=== PATIENT | female | born 1955 | race African-American/Black ===

== ENCOUNTER 2016-09-17 21:39 | Emergency (ER) | payer MEDICARE, OTHER ==
[~2016-09-17] VITALS: Ht 162.6 cm; Wt 102.5 kg
[~2016-09-17 21:39] MED LIST: AMLO10TA4 PO; CLON0.2T PO; GABA-586 PO; GLIM1TAB2; INSU100V31 SQ; INSU100V8 SQ; LISI-334 PO; METO-269 PO; OXYC-328 PO
[2016-09-17 21:58] VITALS: BP 189/82
[2016-09-17] MEDS ORDERED: HYDR-2758 PO (22:40)
--- NOTE | 2016-09-17 22:40 | PHYS DOC ---
Past Medical History Past Medical History: Diabetes-Type II, Hypertension Additional Past Medical Histor: neropathy Past Surgical History: Cholecystectomy, Hysterectomy, Knee Replacement, Other Additional Past Surgical Histo: hernia repair, breast reduction, heart Alcohol Use: None Drug Use: None Adult General Chief Complaint Chief Complaint: LOWER EXT PAIN HPI HPI 61-year-old female presenting to the emergency department with bilateral neuropathic pain that she has had intermittently for years that is worse tonight. She took Tylenol with minimal relief home at 5 PM. The pain is sharp shooting radiating from her toes to her foot. It is worse at night. Review of systems negative for fevers chills nausea vomiting or rashes. All other review of systems is negative unless otherwise noted in history of present illness. ED course: 61-year-old female presenting with neuropathic pain. She reported not having a good experience taking gabapentin previously so I prescribed her hydrocodone to follow-up with her doctor on Friday which she hasn't appointment with already. Afebrile. The patient was then discharged home in stable condition to follow up with their primary care physician over the next 2-3 days. They were to return if their symptoms worsened or if they were concerned for any reason. [id number] discharge instructions and return precautions were given. Patient's questions were answered to their satisfaction. Patient is comfortable plan. Review of Systems Review of Systems SEE ABOVE. Allergies Allergies Allergies Coded Allergies Type Severity Reaction Last Updated Verified No Known Drug Allergies 08/01/13 No Physical Exam Physical Exam Constitutional: Well developed, well nourished, no acute distress, non-toxic appearance. [] HENT: Normocephalic, atraumatic, bilateral external ears normal, oropharynx moist, no oral exudates, nose normal. [] Eyes: PERRLA, EOMI, conjunctiva normal, no discharge. [] Neck: Normal range of motion, no tenderness, supple, no stridor. [] Cardiovascular:Heart rate regular rhythm, no murmur [] Lungs & Thorax: Bilateral breath sounds clear to auscultation [] Abdomen: Bowel sounds normal, soft, no tenderness, no masses, no pulsatile masses. [] Skin: Warm, dry, no erythema, no rash. [] Back: No tenderness, no CVA tenderness. [] Extremities: No tenderness, no cyanosis, no clubbing, ROM intact, no edema. [] Neurologic: Alert and oriented X 3, normal motor function, normal sensory function, no focal deficits noted. [] Psychologic: Affect normal, judgement normal, mood normal. [] Current Patient Data Vital Signs Vital Signs Date Time Temp Pulse Resp B/P (MAP) Pulse Ox O2 Delivery O2 Flow Rate FiO2 09/17/16 21:58 98.3 98 18 94 Room Air 98.3 EKG EKG [] Radiology/Procedures Radiology/Procedures [] Course & Med Decision Making Course & Med Decision Making Pertinent Labs and Imaging studies reviewed. (See chart for details) [] Dragon Disclaimer Dragon Disclaimer This electronic medical record was generated, in whole or in part, using a voice recognition dictation system. Departure Departure Impression: Primary Impression: Neuropathy Disposition: 01 HOME, SELF-CARE Condition: STABLE Referrals: NO PCP (PCP) JUSTIN KING MD Patient Instructions: Pain, Neuropathic Additional Instructions: Thank you for allowing us to participate in your care today. Followup with your primary care physician in 3 days if your symptoms do not improve. Call your Primary Doctor tomorrow and inform them of your visit today. If you do not have a primary care provider you can ask for a list of our primary care providers. Return to the emergency department you have any new or concerning findings. This should be evaluated by the primary care physician and any necessary consulting services for continued management within a few days after discharge. Return to emergency room if you have any new or concerning symptoms including but not limited to fever, chills, nausea, vomiting, intractable pain, any new rashes, chest pain, shortness of air, uncontrolled bleeding, difficulty breathing, and/or vision loss. You may have been prescribed medication that can change in your level of thinking and ability to operate machinery. These medications include hydrocodone and Ativan. Also, Benadryl has been known to do this as well. Be sure to check with your pharmacist and ask if the medications you've prescribed can affect your level of consciousness. I recommend not operating heavy machinery or driving while on medication such as these. Scripts Hydrocodone Bit/Acetaminophen (HYDROCODONE-APAP 5-325 ) 1 Each Tablet 1 TAB PO PRN Q6HRS Y for PAIN, #15 TAB 0 Refills Be careful as this medication may cause you to be drowsy or tired. Do not drive on this medication. Prov: ALEX WILSON MD 09/17/16 ALEX WILSON MD Sep 17, 2016 22:40
== END 2016-09-17 22:50 | disposition home or self-care (01) ==
LOC: ER 21:39
DX: E11.40 Type 2 diabetes mellitus with diabetic neuropathy, unspecified (principal); I10 Essential (primary) hypertension; Z90.49 Acquired absence of other specified parts of digestive tract; Z90.710 Acquired absence of both cervix and uterus; Z96.669 Presence of unspecified artificial ankle joint
CPT/HCPCS: 99283

== ENCOUNTER 2016-09-28 00:59 | Emergency (ER) | payer OTHER ==
[~2016-09-28] VITALS: Ht 162.6 cm; Wt 99.8 kg
[~2016-09-28 00:59] MED LIST changes: +HYDR-2758 PO
[2016-09-28] MEDS ORDERED: CAPS60CR2 TP (01:43)
--- NOTE | 2016-09-28 01:43 | PHYS DOC ---
Past Medical History Past Medical History: Diabetes-Type II, Hypertension Additional Past Medical Histor: neropathy Past Surgical History: Cholecystectomy, Hysterectomy, Knee Replacement, Other Additional Past Surgical Histo: hernia repair, breast reduction, heart Alcohol Use: None Drug Use: None Adult General Chief Complaint Chief Complaint: LOWER EXT PAIN HPI HPI Patient is a 61 year old female who presents with complaint of bilateral lower extremity pain. Patient states that she has history of diabetic neuropathy. Patient states that she has been trialed on gabapentin and Lyrica therapy but states that she had to discontinue these medications as she had "a bad reaction " to these medications. The patient states that she has been treated with hydrocodone and oxycodone in the past. The patient was last seen in the emergency department on September 17, 2016 and was written for hydrocodone at that visit. The patient states that she follows with Dr. Martines. Patient has seen her primary doctor and she states that she was not given further medication at that visit. She did state that they discussed referral to a paint stock clerk however this has not been set up at this time. Patient states that the pain is burning in quality and extends towards her bilateral calves. Patient rates her pain currently as 9 out of 10. Patient states that the pain is typical for flareups of neuropathic pain. Patient denies any injury to her feet and denies any other complaints at this time. Review of Systems Review of Systems Constitutional: Denies fever or chills [] Eyes: Denies change in visual acuity, redness, or eye pain [] HENT: Denies nasal congestion or sore throat [] Respiratory: Denies cough or shortness of breath [] Cardiovascular: Denies chest pain or edema [] GI: Denies abdominal pain, nausea, vomiting, bloody stools or diarrhea [] : Denies dysuria or hematuria [] Musculoskeletal: Denies back pain or joint pain [] Integument: Denies rash or skin lesions [] Neurologic: Chronic neuropathy, denies headache or new-onset focal weakness [] Current Medications Current Medications Current Medications Medications (Trade) Dose Ordered Sig/Susan Start Time Stop Time Status Last Admin Dose Admin Acetaminophen/ Hydrocodone Bitart (Lortab 10/325) 1 tab 1X ONCE 09/28/16 02:00 09/28/16 02:01 DC 09/28/16 01:57 1 TAB Allergies Allergies Allergies Coded Allergies Type Severity Reaction Last Updated Verified No Known Drug Allergies 5/11/14 No Physical Exam Physical Exam Constitutional: Alert, afebrile, appears in mild discomfort. [] HENT: Normocephalic, atraumatic, bilateral external ears normal, oropharynx moist, no oral exudates, nose normal. [] Eyes: PERRLA, EOMI, conjunctiva normal, no discharge. [] Neck: Normal range of motion, no tenderness, supple, no stridor. [] Cardiovascular:Heart rate regular rhythm, no murmur [] Lungs & Thorax: Bilateral breath sounds clear to auscultation [] Abdomen: Bowel sounds normal, soft, no tenderness, no masses, no pulsatile masses. [] Skin: Warm, dry, no erythema, no rash. [] Back: No tenderness, no CVA tenderness. [] Extremities: No obvious wounds or deformity present in the bilateral lower extremities, hyperesthesia along the plantar aspect of the feet bilaterally extending along the posterior distal third of the lower legs, full range of motion present bilaterally, pulses 2+ distally. [] Neurologic: Alert and oriented X 3, normal motor function, decreased sensation to light touch in the bilateral lower extremities in a stocking pattern. [] Current Patient Data Vital Signs Vital Signs Date Time Temp Pulse Resp B/P (MAP) Pulse Ox O2 Delivery O2 Flow Rate FiO2 09/28/16 01:57 20 09/28/16 01:24 98.5 94 94 Room Air 98.5 EKG EKG Not performed [] Radiology/Procedures Radiology/Procedures Not performed [] Course & Med Decision Making Course & Med Decision Making Pertinent Labs and Imaging studies reviewed. (See chart for details) The patient was treated with oral [place] in the emergency department. I explained to the patient that due to having a controlled substance written previously from the emergency department, further prescriptions would need to be written by her primary doctor. I did provide referral to Dr. Shahram Logan of the pain management clinic for patient to establish follow-up care and be evaluated for chronic pain management. The patient was also written for capsaicin cream for treatment of her neuropathic pain which has not been a modality of treatment used in the past. Advised return emergency department for any worsening symptoms and recommended follow-up with primary doctor in the next 3 days. Patient voiced understanding and in agreement with treatment plan. Dragon Disclaimer Dragon Disclaimer This electronic medical record was generated, in whole or in part, using a voice recognition dictation system. Departure Departure Impression: Primary Impression: Neuropathy Disposition: 01 HOME, SELF-CARE Condition: STABLE Referrals: NO PCP (PCP) Patient Instructions: Diabetic Neuropathy Additional Instructions: Follow-up with your primary doctor in 3 days for reevaluation. Call the office of Dr. Shahram Logan to set up an appointment in the next 1-2 weeks for evaluation for chronic pain management. Return to the emergency department for any worsening symptoms. Scripts Capsaicin (CAPSAICIN) 60 Gm Cream..g. 60 GM TP QID Y for PAIN, #1 TUBE Prov: AIME FREEMAN MD 09/28/16 AIME FREEMAN MD Sep 28, 2016 01:43
[2016-09-28] MEDS ORDERED: HYDROcodone/APAP 10/325 1 TAB TABLET PO ONE (02:00)
== END 2016-09-28 02:02 | disposition home or self-care (01) ==
LOC: ER 00:59
DX: E11.40 Type 2 diabetes mellitus with diabetic neuropathy, unspecified (principal); I10 Essential (primary) hypertension; Z90.710 Acquired absence of both cervix and uterus; Z90.49 Acquired absence of other specified parts of digestive tract; Z96.659 Presence of unspecified artificial knee joint
CPT/HCPCS: 99283

== ENCOUNTER → 2016-10-10 | Outpatient (CLI) | payer OTHER ==
[2016-09-28 01:24] VITALS: BP 183/84
[~2016-10-10] MED LIST changes: +CAPS60CR2 TP
--- NOTE | 2016-10-10 11:56 | RAD ---
MRI Lumbar Spine without contrast History: Low back pain, bilateral leg radiculopathy and spasms Technique: Multiplanar, multi sequential noncontrast MR imaging was performed of the lumbar spine. Contrast: None Comparison: None Findings: Most inferior fully formed intervertebral disc space is considered L5-S1 for this report. Lumbar vertebral body stature is maintained. There is very minimal grade 1 anterior spondylolisthesis at L3-4, L4-5, L5-S1. There is mild degenerative disc disease at L4-5, very mild disc desiccation at L3-4 and L5-S1 and also at T12-L1 and T11-12. There is fairly large hemangioma of the left and posterior L2 vertebral body, small focus of L4. There is no significant marrow edema. Conus terminates at T12-L1. There is 2.8 cm T2 hyperintense lesion of the visualized inferior right kidney, statistically most likely a cyst. T12-L1: There is negligible posterior bulge. There is posterior annular tear. There is minimal buckling of the ligamentum flavum. Neural foramina and spinal canal are adequate. L1-L2: Spinal canal and neural foramina are adequate. This level was not included on the axial images. L2-L3: There is negligible disc osteophyte complex and bulge. There is minimal buckling of the ligamentum flavum. There is very minimal narrowing of the anterior distal right neural foramen by minimal bulge, left neural foramen overall adequate. Spinal canal is adequate. L3-L4: There is mild facet degenerative change on the right. Spinal canal and neural foramina are adequate. L4-L5: There is a moderate to severe facet degenerative change. There is mild partial uncovering of the posterior aspect of the disc due to spondylolisthesis. Spinal canal is adequate. There is mild to moderate narrowing of the more distal right neural foramen, left neural foramen adequate. L5-S1: There is very minimal protrusion eccentric to the far left lateral recess and inferior left neural foramen. Spinal canal and neural foramina are adequate. Impression: 1. There is no significant lumbar spinal stenosis. There is mild to moderate narrowing of the distal right L4-5 neural foramen. There is mild degenerative disc disease greatest at L4-5. There is very mild grade 1 anterior spondylolisthesis L3-4 and L5-S1 at which there is facet degenerative change. 2. T2 hyperintense lesion of the visualized right kidney is most likely a cyst. Electronically signed by: Javier Solomon MD (10/10/2016 11:53 AM) [id number]
== END | disposition home or self-care (01) ==
LOC: MRI 10:29
PROVIDERS: ATTEND Family Medicine
DX: M51.36 Other intervertebral disc degeneration, lumbar region (principal)
CPT/HCPCS: 72148

== ENCOUNTER 2016-10-19 17:26 | Emergency (ER) | payer OTHER ==
[~2016-10-19] VITALS: Ht 167.6 cm; Wt 104.3 kg
[2016-10-19 18:13] LABS: BILIRUBIN,URINE NEGATIVE (NEG); GLUCOSE,URINE 100 mg/dL (NEG); NITRITE,URINE NEGATIVE (NEG); PH,URINE 5.5; PROTEIN,URINE 30 mg/dL (NEG-TRACE)
[2016-10-19 18:19] LABS: BACTERIA,URINE MANY /HPF (0-FEW); RBC,URINE 0 /HPF (0-2); SQUAMOUS EPITHELIAL CELL,UR MANY /LPF
[2016-10-19 18:36] LABS: BASO # 0.1 x10^3/uL (0.0-0.2); BASO % 1 % (0-3); EOS % 0 % (0-3); HEMATOCRIT 44.1 % (36.0-47.0); HEMOGLOBIN 13.9 g/dL (12.0-15.5); LYMPH # 2.2 x10^3/uL (1.0-4.8); LYMPH % 20 % (24-48); MEAN CORPUSCULAR HEMOGLOBIN 26 pg (25-35); MEAN CORPUSCULAR HGB CONC 32 g/dL (31-37); MEAN CORPUSCULAR VOLUME 83 fL (79-100); MONO % 6 % (0-9); NEUT % 74 % (31-73); PLATELET COUNT 440 x10^3/uL (140-400); RED BLOOD COUNT 5.33 x10^6/uL (3.50-5.40); RED CELL DISTRIBUTION WIDTH 16.9 % (11.5-14.5); WHITE BLOOD COUNT 11.2 x10^3/uL (4.0-11.0)
[2016-10-19 18:47] LABS: CALCIUM 10.3 mg/dL (8.5-10.1); CREATININE 0.9 mg/dL (0.6-1.0); GFR 76.8; POTASSIUM 4.1 mmol/L (3.5-5.1)
[2016-10-19 18:53] LABS: ALBUMIN 3.6 g/dL (3.4-5.0); ALBUMIN/GLOBULIN RATIO 0.6 (1.0-1.7); TOTAL BILIRUBIN 0.3 mg/dL (0.2-1.0); TOTAL PROTEIN 9.5 g/dL (6.4-8.2)
--- NOTE | 2016-10-19 18:57 | PHYS DOC ---
Past Medical History Past Medical History: Diabetes-Type II, Hypertension Additional Past Medical Histor: neropathy Past Surgical History: Cholecystectomy, Hysterectomy, Knee Replacement, Other Additional Past Surgical Histo: hernia repair, breast reduction, heart Alcohol Use: None Drug Use: None Adult General Chief Complaint Chief Complaint: ABDOMINAL PAIN HPI HPI 61 yo F presenting to the Ed today with pain in her umbilical hernia. The pain is sharp, nonradiating and without alleviating factors. she has associated n/v. ROS neg for cp, fevers chills, headache, headache. All other review of systems is negative unless otherwise noted in history of present illness. ed course: 61 y/o F presents the ED with pain in her umbilical hernia. vitals show afebrile with tachycardia 2/2 pain. pertinent exam shows a soft easily reducible hernia that is not incarcerated or stangulated. Otherwise the remainder the exam is unremarkable. IV established. Fluids and pain and nausea medications given. CT the abdomen pelvis obtained. on rexamination, the pt was feeling much better and subsequently d/gabby home to f/u with pcp. The patient was then discharged home in stable condition to follow up with their primary care physician over the next 2-3 days. They were to return if their symptoms worsened or if they were concerned for any reason. [id number] discharge instructions and return precautions were given. Patient's questions were answered to their satisfaction. Patient is comfortable plan. Review of Systems Review of Systems SEE ABOVE. Current Medications Current Medications Current Medications Medications (Trade) Dose Ordered Sig/Susan Start Time Stop Time Status Last Admin Dose Admin Hydromorphone HCl (Dilaudid) 0.5 mg PRN Q30MIN PRN 10/19/16 19:30 10/19/16 21:30 DC 10/19/16 19:27 0.5 MG Info (Do NOT chart on this entry -- for MONITORING) 1 each PRN DAILY PRN 10/19/16 19:30 10/19/16 21:30 DC Iohexol (Omnipaque 240 Mg/ml) 50 ml 1X ONCE 10/19/16 19:30 10/19/16 19:31 DC 10/19/16 19:30 50 ML Iohexol (Omnipaque 300 Mg/ml) 75 ml 1X ONCE 10/19/16 19:30 10/19/16 19:31 DC 10/19/16 19:30 75 ML Labetalol HCl (Normodyne) 20 mg 1X ONCE 10/19/16 19:30 10/19/16 19:31 DC 10/19/16 19:26 20 MG Ondansetron HCl (Zofran) 4 mg 1X ONCE 10/19/16 19:30 10/19/16 19:31 DC 10/19/16 19:27 4 MG Allergies Allergies Allergies Coded Allergies Type Severity Reaction Last Updated Verified No Known Drug Allergies 08/01/13 No Physical Exam Physical Exam SEE ABOVE Constitutional: Well developed, well nourished, no acute distress, non-toxic appearance. [] HENT: Normocephalic, atraumatic, bilateral external ears normal, oropharynx moist, no oral exudates, nose normal. [] Eyes: PERRLA, EOMI, conjunctiva normal, no discharge. [] Neck: Normal range of motion, no tenderness, supple, no stridor. [] Cardiovascular:Heart rate regular rhythm, no murmur [] Lungs & Thorax: Bilateral breath sounds clear to auscultation [] Abdomen: See above. Otherwise soft and nontender. Negative McBurney's point. negative March sign. Skin: Warm, dry, no erythema, no rash. [] Back: No tenderness, no CVA tenderness. [] Extremities: No tenderness, no cyanosis, no clubbing, ROM intact, no edema. [] Neurologic: Alert and oriented X 3, normal motor function, normal sensory function, no focal deficits noted. [] Psychologic: Affect normal, judgement normal, mood normal. [] Current Patient Data Vital Signs Vital Signs Date Time Temp Pulse Resp B/P (MAP) Pulse Ox O2 Delivery O2 Flow Rate FiO2 10/19/16 20:46 86 20 163/77 (105) 93 Room Air 10/19/16 17:57 98.3 98.3 Lab Values Laboratory Tests Test 10/19/16 17:57 10/19/16 18:05 Urine Collection Type Unknown Urine Color Yellow Urine Clarity Clear Urine pH 5.5 Urine Specific [place] 1.025 Urine Protein 30 mg/dL (NEG-TRACE) Urine Glucose (UA) 100 mg/dL (NEG) Urine Ketones (Stick) Negative mg/dL (NEG) Urine Blood Negative (NEG) Urine Nitrite Negative (NEG) Urine Bilirubin Negative (NEG) Urine Urobilinogen Dipstick 1.0 mg/dL (0.2 mg/dL) Urine Leukocyte Esterase Small (NEG) Urine RBC 0 /HPF (0-2) Urine WBC 5-10 /HPF (0-4) Urine Squamous Epithelial Cells Many /LPF Urine Bacteria Many /HPF (0-FEW) Urine Mucus Mod /LPF White Blood Count 11.2 x10^3/uL (4.0-11.0) H Red Blood Count 5.33 x10^6/uL (3.50-5.40) Hemoglobin 13.9 g/dL (12.0-15.5) Hematocrit 44.1 % (36.0-47.0) Mean Corpuscular Volume 83 fL (79-100) Mean Corpuscular Hemoglobin 26 pg (25-35) Mean Corpuscular Hemoglobin Concent 32 g/dL (31-37) Red Cell Distribution Width 16.9 % (11.5-14.5) H Platelet Count 440 x10^3/uL (140-400) H Neutrophils (%) (Auto) 74 % (31-73) H Lymphocytes (%) (Auto) 20 % (24-48) L Monocytes (%) (Auto) 6 % (0-9) Eosinophils (%) (Auto) 0 % (0-3) Basophils (%) (Auto) 1 % (0-3) Neutrophils # (Auto) 8.2 x10^3uL (1.8-7.7) H Lymphocytes # (Auto) 2.2 x10^3/uL (1.0-4.8) Monocytes # (Auto) 0.6 x10^3/uL (0.0-1.1) Eosinophils # (Auto) 0.0 x10^3/uL (0.0-0.7) Basophils # (Auto) 0.1 x10^3/uL (0.0-0.2) Sodium Level 135 mmol/L (136-145) L Potassium Level 4.1 mmol/L (3.5-5.1) Chloride Level 96 mmol/L (98-107) L Carbon Dioxide Level 28 mmol/L (21-32) Anion Gap 11 (6-14) Blood Urea Nitrogen 15 mg/dL (7-20) Creatinine 0.9 mg/dL (0.6-1.0) Estimated GFR (Cockcroft-Gault) 76.8 BUN/Creatinine Ratio 17 (6-20) Glucose Level 212 mg/dL (70-99) H Calcium Level 10.3 mg/dL (8.5-10.1) H Total Bilirubin 0.3 mg/dL (0.2-1.0) Aspartate Amino Transferase (AST) 18 U/L (15-37) Alanine Aminotransferase (ALT) 20 U/L (14-59) Alkaline Phosphatase 134 U/L (46-116) H Troponin I Quantitative < 0.017 ng/mL (0.000-0.055) Total Protein 9.5 g/dL (6.4-8.2) H Albumin 3.6 g/dL (3.4-5.0) Albumin/Globulin Ratio 0.6 (1.0-1.7) L Lipase 98 U/L (73-393) Laboratory Tests 10/19/16 18:05 Laboratory Tests 10/19/16 18:05 EKG EKG [] Radiology/Procedures Radiology/Procedures [] Course & Med Decision Making Course & Med Decision Making Pertinent Labs and Imaging studies reviewed. (See chart for details) [] Dragon Disclaimer Dragon Disclaimer This electronic medical record was generated, in whole or in part, using a voice recognition dictation system. Departure Departure Impression: Primary Impression: Abdominal pain Disposition: 01 HOME, SELF-CARE Condition: STABLE Referrals: INDERJIT KOCH MD (PCP) Patient Instructions: Abdominal Pain, Hernia Additional Instructions: Thank you for allowing us to participate in your care today. Followup with your primary care physician in 3 days if your symptoms do not improve. Call your Primary Doctor tomorrow and inform them of your visit today. If you do not have a primary care provider you can ask for a list of our primary care providers. Return to the emergency department you have any new or concerning findings. This should be evaluated by the primary care physician and any necessary consulting services for continued management within a few days after discharge. Return to emergency room if you have any new or concerning symptoms including but not limited to fever, chills, nausea, vomiting, intractable pain, any new rashes, chest pain, shortness of air, uncontrolled bleeding, difficulty breathing, and/or vision loss. You may have been prescribed medication that can change in your level of thinking and ability to operate machinery. These medications include hydrocodone and Ativan. Also, Benadryl has been known to do this as well. Be sure to check with your pharmacist and ask if the medications you've prescribed can affect your level of consciousness. I recommend not operating heavy machinery or driving while on medication such as these. Scripts Ondansetron (ZOFRAN ODT) 4 Mg Tab.rapdis 1 TAB SL PRN Q8HRS Y for NAUSEA, #6 TAB Prov: ALEX WILSON MD 10/19/16 Hydrocodone Bit/Acetaminophen (HYDROCODONE-APAP 5-325 ) 1 Each Tablet 1 TAB PO PRN Q6HRS Y for PAIN, #15 TAB 0 Refills Be careful as this medication may cause you to be drowsy or tired. Do not drive on this medication. Prov: ALEX WILSON MD 10/19/16 ALEX WILSON MD Oct 19, 2016 18:57
[2016-10-19] MEDS ORDERED: IOHEXOL 240 MG/ML 50ML VIAL. IV ONE (19:30)
[2016-10-19] MEDS ORDERED: CONTRAST GIVEN MC PRN (19:30)
[2016-10-19] MEDS ORDERED: ONDANSETRON PF 4 MG/2 ML VIAL. IV ONE (19:30)
[2016-10-19] MEDS ORDERED: HYDROmorphone 2 MG/ML VIAL IV PRN (19:30)
[2016-10-19] MEDS ORDERED: IOHEXOL 300 MG/ML 75 ML VIAL IV ONE (19:30)
[2016-10-19] MEDS ORDERED: LABETALOL 20 MG/4 ML DISP.SYRIN. IVP ONE (19:30)
[2016-10-19 20:46] VITALS: BP 163/77
--- NOTE | 2016-10-19 21:05 | RAD ---
CT study of the abdomen and pelvis with contrast HISTORY: Abdominal pain for 3 days. Hernia pain. History of cholecystectomy and hysterectomy and appendectomy and hernia surgery repair. COMPARISON: September 16, 2012. TECHNIQUE: After IV infusion of 75 cc of Omnipaque 300, helical CT scanning of the abdomen and pelvis was performed. GI contrast was administered per mouth. PQRS compliance Statement One or more of the following individualized dose reduction techniques were utilized for this study: 1. Automated exposure control 2. Adjustment of the mA and/or kV according to patient size 3. Use of iterative reconstruction technique FINDINGS: The liver and spleen and pancreas are normal. The gallbladder is surgically absent. No extrahepatic biliary ductal dilatation is seen. No adrenal mass is evident. There is a 1.4 cm hypodense nodule of the anterior upper pole of the right kidney. This has increased in size and does not demonstrate Hounsfield unit measurements typical of a simple cyst. There is a stable simple cyst of lower pole of the right kidney. No hydronephrosis is seen on either side. The urinary bladder wall is smooth. No focal aneurysmal dilatation of the abdominal aorta is seen. No enlarged abdominal or pelvic lymphadenopathy is evident. Nothe terminal ileum is unremarkable. Prominent midline abdominal wall protrusion is seen. Within the inferior aspect of this protrusion near the midline, a small hernia is seen containing a loop of small bowel but no bowel wall thickening is evident here. This has a similar appearance as the previous study. There is no obstructive bowel pattern. There is soft tissue edema of the subcutaneous fat of the anterior abdominal wall on the left side. This could represent cellulitis. No soft tissue abscess is seen here. No mesenteric inflammatory change or free fluid or free air is seen. No lung base consolidation is evident. No osteolytic process is seen. IMPRESSION: Large anterior abdominal wall protrusion. Within the inferior aspect of this protrusion, a small hernia is seen containing a loop of small bowel and this is unchanged from the previous study. There is no bowel wall thickening or inflammatory change here and there is no bowel obstruction present here. Overall, this is unchanged from the previous study. No small bowel obstruction or free air or free fluid is seen. Subcutaneous soft tissue edema of the left anterior abdominal wall. This may be seen with cellulitis. No anterior abdominal wall abscess is seen. Mild cardiomegaly. There is a filling defect within the left ventricular apex measuring 20 mm in size. Left ventricular thrombus is a possibility. No pericardial effusion is seen. 1.4 cm indeterminate hypodense nodule of the upper pole of the right kidney. This has increased in size. Therefore, recommend outpatient renal sonography for further evaluation. Electronically signed by: Dayron Salas MD (10/19/2016 9:02 PM) [facility]
[2016-10-19] MEDS ORDERED: ONDA4TAB10 SL (21:17)
[2016-10-19] MEDS ORDERED: HYDR-2758 PO (21:17)
--- NOTE | 2016-10-20 09:19 | EKG ---
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
== END 2016-10-19 21:20 | disposition home or self-care (01) ==
LOC: ER 17:26
DX: R10.33 Periumbilical pain (principal); R11.2 Nausea with vomiting, unspecified; E11.40 Type 2 diabetes mellitus with diabetic neuropathy, unspecified; I10 Essential (primary) hypertension; Z90.710 Acquired absence of both cervix and uterus; Z90.49 Acquired absence of other specified parts of digestive tract; Z98.890 Other specified postprocedural states; Z96.659 Presence of unspecified artificial knee joint
CPT/HCPCS: 36415; 74177; 80053; 81001; 83690; 84484; 85027; 93005; 96374; 96375; 99285; J1170; J2405; J3490; Q9966; Q9967

== ENCOUNTER → 2016-10-28 | Outpatient (CLI) | payer OTHER ==
[2016-10-19 20:46] VITALS: BP 163/77
[~2016-10-28] MED LIST changes: +ASPI-482 PO; +ATOR20TA58 PO; +CLOP75TA PO; +FAMO20TA5 PO; +FURO80TA72 PO; +INSU100I17 SQ; +INSU100I27 SQ; +METO25TA4 PO; +ONDA4TAB10 SL; +POTASSIUM CHLO10 MEQ PO
--- NOTE | 2016-10-28 23:50 | PAIN ---
DATE OF SERVICE: 10/28/2016 INITIAL CONSULTATION CHIEF COMPLAINT: Low back, bilateral lower extremity pain, essentially left equal to right. HISTORY OF PRESENT ILLNESS: This is a 61-year-old female who presents with history of pain for about 10+ years. 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 She recently relocated from [place] to [place], [place]. She had some family there, but has moved back. The patient reports that she is having increased pain in her low back, bilateral lower extremities after the move and it is a constant, sharp, stabbing, throbbing with numbness, radiating pain mostly in the posterior thighs and a little in the left knee. The patient reports it wakes her from sleep 2-3 times at night, does not affect her bowel or bladder control, but does affect her ability to walk. She is using a walker at all times. The patient is also wearing nasal cannula oxygen today. The patient is in the process of establishing new primary care physician as well as Cardiology and auxiliary engineer and he has been referred, but she has not seen these physicians yet. The patient reports that she has tried physical therapy in the past multiple times over the years, which sometimes helps, sometimes not, has had no other treatment modalities at this time. She did have some epidural injections many years ago, which she remembers that they helped. She has also been taking Percocet 10 mg, which she reports does help by about 50% as well. The patient reports no loss of motor function in the lower extremities, but they do fatigue very easily even was using her walker. PAST MEDICAL HISTORY: Significant for type 2 diabetes, hypertension, sleep apnea, obesity, home oxygen use and coronary artery disease, peripheral neuropathy, arthritis. PREVIOUS SURGERY: Include coronary artery bypass in 2014, cholecystectomy and hernia repair in 2005, hysterectomy in the past, left knee replacement in 2006 and breast reduction in the past as well. CURRENT MEDICATIONS: Include lisinopril, metoprolol, Percocet, insulin, atorvastatin, daily baby aspirin, potassium chloride, Plavix, Lasix, and famotidine. ALLERGIES: THE PATIENT IS ALLERGIC TO MOTRIN. FAMILY HISTORY: Significant for heart disease, high blood pressure, diabetes. SOCIAL HISTORY: The patient does not drink alcohol, does not use tobacco products. Reports she is currently single. Lives locally with her granddaughter and is currently retired. REVIEW OF SYSTEMS: The patient's review of systems is positive for those items mentioned in history of present illness. All systems reviewed and otherwise negative. It is complete, full and well documented on the patient's chart. PHYSICAL EXAMINATION: VITAL SIGNS: The patient's blood pressure is 174/92, pulse 102, respirations 20, temperature 98.2 degrees Fahrenheit, height is 5 feet 4 inches, weight is 253 pounds. GENERAL: The patient is awake, alert, oriented, appropriate, very pleasant demeanor. HEENT: Head shows normocephalic, atraumatic. Extraocular movements are intact, symmetrical. Oral cavity, mucous membranes are moist and pink. Dentition is intact. NECK: Shows anterior throat supple without palpable lymphadenopathy noted. Swallow reflex is symmetrical. CHEST: Shows normal on inspection. Breath sounds are clear to auscultation bilaterally. HEART: Shows S1 and S2 clear. No murmurs auscultated. ABDOMEN: Obese, soft, nontender, nondistended. No palpable organomegaly is noted. No rebound or guarding demonstrated. BACK: Shows spine grossly midline. Slight exaggeration of thoracic kyphosis, mild flattening of lumbar lordotic curvature. No previous bruises, lesions, rashes or scars are noted. Lumbar paraspinous muscles show symmetrical on inspection. With palpation shows some moderate tenderness throughout the upper, middle and lower distribution diffusely bilaterally without radiation. The patient shows good rotation and motion of lumbar spine, both laterally greater than 10 degrees right and left as well as extension greater than 10 degrees, forward flexion 45 degrees without significant pain reported. No tenderness over the spinous processes, the sacrum or sacroiliac regions with palpation. Lower extremities show deep tendon reflexes 1+ in the patellar and tendocalcaneus tendons, are equal. Motor exam is 4/5 and equal with dorsiflexion, extension, quadriceps and hamstring flexion, but symmetrical. Peripheral pulses are 1+ posterior tibial and dorsalis pedis pulses. No peripheral edema is noted. No clubbing or cyanosis. Straight leg raise noted to be positive on bilateral lower extremity at about 30-35 degrees with pain reported in the posterior gluteus, posterior thighs, which is decreased, but not completely relieved with knee flexion. Gaenslen's and Ronny's maneuvers are grossly negative bilaterally, some mild tenderness on the right with external hip rotation, but without radiation or pain in the right groin. The patient is able to stand, but very slow to get from a sitting to standing position. She is walking with a bit of a shuffling gait, does not appear to favor the right or left lower extremity significantly. She is using a walker to ambulate. Again, also has nasal cannula oxygen, which she is pulling behind her with the walker. IMPRESSION: 1. This is a 61-year-old female with a long history of low back, bilateral lower extremity pain in a radicular fashion. 2. MRI scan of the lumbar spine dated 10/10/2016 showing no significant stenoses, but mild to moderate narrowing of the distal right L4-L5 neural foramen and mild degenerative disk disease, greatest at L4-L5 with very mild grade 1 anterior spondylolisthesis at L3-L4 and L5-S1 with facet degenerative change as well. 3. Radicular pain in the L4 and L5-S1 dermatomes bilaterally in lower extremities. 4. Diabetes, non-insulin dependent. 5. Hypertension. 6. Arthritis. 7. Obesity. PLAN: Options were discussed with the patient including conservative medical management, continued physical therapy. We will refer the patient for water therapy. She reports she ___ well with this in the past. Also, we will check with her bolt man who was soon to be established regarding holding the Plavix for preparation of the lumbar epidural steroid injection and she would like to proceed with a lumbar epidural steroid injection if possible and again we will wait for clearance from holding her Plavix and preauthorization from her insurance provider. The patient will return to clinic in approximately 1 week or approximately 2 weeks. We will plan on procedure as approved. I also recommended discussing blood pressure regulation with her primary care physician again and that she will receive any oral narcotics from her primary care provider if necessary in the future. CARMEN CHAHAL MD DR: NANCY/amrik JOB#: [id number] / [id number] INDERJIT Gonzalez MD
== END | disposition home or self-care (01) ==
LOC: PNCL 10:36
PROVIDERS: ATTEND Anesthesiology
DX: M51.37 Other intervertebral disc degeneration, lumbosacral region (principal); I10 Essential (primary) hypertension; E11.9 Type 2 diabetes mellitus without complications
CPT/HCPCS: G0463

== ENCOUNTER 2016-11-19 13:34 | Observation (INO) | payer OTHER ==
[~2016-11-19] VITALS: Ht 162.6 cm; Wt 109.8 kg
[~2016-11-19 13:34] MED LIST changes: +FERR-26 PO; +NITR0.4T22 SL
[2016-11-19 14:07] LABS: BASO # 0.1 x10^3/uL (0.0-0.2); BASO % 1 % (0-3); EOS % 0 % (0-3); HEMATOCRIT 39.9 % (36.0-47.0); HEMOGLOBIN 12.8 g/dL (12.0-15.5); LYMPH # 1.3 x10^3/uL (1.0-4.8); LYMPH % 14 % (24-48); MEAN CORPUSCULAR HEMOGLOBIN 27 pg (25-35); MEAN CORPUSCULAR HGB CONC 32 g/dL (31-37); MEAN CORPUSCULAR VOLUME 84 fL (79-100); MONO % 5 % (0-9); NEUT % 80 % (31-73); PLATELET COUNT 383 x10^3/uL (140-400); RED BLOOD COUNT 4.74 x10^6/uL (3.50-5.40); RED CELL DISTRIBUTION WIDTH 17.6 % (11.5-14.5); WHITE BLOOD COUNT 9.7 x10^3/uL (4.0-11.0)
[2016-11-19] MEDS ORDERED: CONTRAST GIVEN MC PRN (14:15)
[2016-11-19] MEDS ORDERED: IOHEXOL 300 MG/ML 75 ML VIAL IV ONE (14:15)
[2016-11-19 14:17] LABS: CALCIUM 10.1 mg/dL (8.5-10.1); CREATININE 0.7 mg/dL (0.6-1.0); GFR 102.6; POTASSIUM 4.1 mmol/L (3.5-5.1)
[2016-11-19 14:22] LABS: ALBUMIN 3.6 g/dL (3.4-5.0); ALBUMIN/GLOBULIN RATIO 0.8 (1.0-1.7); TOTAL BILIRUBIN 0.5 mg/dL (0.2-1.0); TOTAL PROTEIN 8.2 g/dL (6.4-8.2)
[2016-11-19] MEDS ORDERED: MORPHINE SULFATE 4 MG/ML DISP.SYRIN. IM ONE (14:45)
--- NOTE | 2016-11-19 14:54 | RAD ---
CTA of the chest with contrast (pulmonary embolism protocol) 11/19/2016 Clinical History: Chest pain. Technique: After the intravenous administration of 75 mL of Omnipaque 300, contiguous, 0.625 mm axial sections were obtained through the chest. 2 mm reconstructed axial and 3-D MIP coronal and sagittal reconstructed images were obtained. One or more of the following individualized dose reduction techniques were utilized for this study: 1. Automated exposure control. 2. Adjustment of the mA and/or kV according to patient size. 3. Use of iterative reconstruction technique. Findings: Comparison study is dated 11/01/2016. No filling defects are seen within the major branches of either pulmonary artery. There is no CT evidence of pulmonary embolism. Surgical changes are seen consistent with a CABG procedure. Atherosclerotic calcification of the thoracic aorta is seen. The thoracic aorta is tortuous but tapers normally.. Extensive coronary artery calcifications are seen. The heart is mildly enlarged. Linear bands of subsegmental atelectasis are seen involving both lower lobes. No area of consolidation is seen. No pneumothorax or pleural effusion is noted. Impression: There is no CT evidence of pulmonary embolism.
--- NOTE | 2016-11-19 15:02 | EKG ---
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
[2016-11-19] MEDS ORDERED: ONDANSETRON PF 4 MG/2 ML VIAL. IV ONE (15:15)
[2016-11-19] MEDS ORDERED: MORPHINE SULFATE 4 MG/ML DISP.SYRIN. IV ONE (15:30)
--- NOTE | 2016-11-19 16:13 | PHYS DOC ---
Past Medical History Past Medical History: Diabetes-Type II, Hypertension, PR Additional Past Medical Histor: neuropathy Past Surgical History: Cholecystectomy, Hysterectomy, Knee Replacement, Other Additional Past Surgical Histo: hernia repair, breast reduction, heart, cardiac cath/stent Alcohol Use: None Drug Use: None Adult General Chief Complaint Chief Complaint: CHEST PAIN HPI HPI Patient is a 61 year old F who presents with chest pain. Patient states she developed some chest heaviness and pain with shortness of breath earlier this afternoon. Patient has a history of bypass surgery had a heart catheter done last week which was unremarkable. Patient denies any fevers. Patient denies any nausea/vomiting/diarrhea. Patient no other symptoms. Patient states this pain was not increased with exertion. Patient has no other complaints. Review of Systems Review of Systems GEN: Denies fevers, chills, sweats HEENT: Denies blurred vision, sore throat CV: Chest pain RESP: Denies shortness of air, cough GI: Denies n/v/d NEURO: Denies confusion, dizziness MSK: Denies weakness, joint pain/swelling Current Medications Current Medications Current Medications Medications (Trade) Dose Ordered Sig/Susan Start Time Stop Time Status Last Admin Dose Admin Info (Do NOT chart on this entry -- for MONITORING) 1 each PRN DAILY PRN 11/19/16 14:15 11/21/16 14:14 Iohexol (Omnipaque 300 Mg/ml) 75 ml 1X ONCE 11/19/16 14:15 11/19/16 14:16 DC 11/19/16 14:29 75 ML Morphine Sulfate 4 mg 1X ONCE 11/19/16 15:30 11/19/16 15:31 DC 11/19/16 15:13 4 MG Ondansetron HCl (Zofran) 4 mg 1X ONCE 11/19/16 15:15 11/19/16 15:16 DC 11/19/16 15:09 4 MG Allergies Allergies Allergies Coded Allergies Type Severity Reaction Last Updated Verified No Known Drug Allergies 08/01/13 No Physical Exam Physical Exam GEN.: No apparent distress. Alert and oriented. HEENT: Head is normocephalic, atraumatic NECK: Supple. LUNGS: CTAB. HEART: tahcy, S1, S2 present. Peripheral pulses intact ABDOMEN: Soft, nontender. Positive bowel sounds. EXTREMITIES: Without any cyanosis. NEUROLOGIC: Normal speech, normal tone PSYCHIATRIC: Normal affect, normal mood. SKIN: No ulcerations Current Patient Data Vital Signs Vital Signs Date Time Temp Pulse Resp B/P (MAP) Pulse Ox O2 Delivery O2 Flow Rate FiO2 11/19/16 13:39 99.0 22 145/59 (87) 94 Room Air 99.0 Lab Values Laboratory Tests Test 11/19/16 13:50 White Blood Count 9.7 x10^3/uL (4.0-11.0) Red Blood Count 4.74 x10^6/uL (3.50-5.40) Hemoglobin 12.8 g/dL (12.0-15.5) Hematocrit 39.9 % (36.0-47.0) Mean Corpuscular Volume 84 fL (79-100) Mean Corpuscular Hemoglobin 27 pg (25-35) Mean Corpuscular Hemoglobin Concent 32 g/dL (31-37) Red Cell Distribution Width 17.6 % (11.5-14.5) H Platelet Count 383 x10^3/uL (140-400) Neutrophils (%) (Auto) 80 % (31-73) H Lymphocytes (%) (Auto) 14 % (24-48) L Monocytes (%) (Auto) 5 % (0-9) Eosinophils (%) (Auto) 0 % (0-3) Basophils (%) (Auto) 1 % (0-3) Neutrophils # (Auto) 7.8 x10^3uL (1.8-7.7) H Lymphocytes # (Auto) 1.3 x10^3/uL (1.0-4.8) Monocytes # (Auto) 0.5 x10^3/uL (0.0-1.1) Eosinophils # (Auto) 0.0 x10^3/uL (0.0-0.7) Basophils # (Auto) 0.1 x10^3/uL (0.0-0.2) Sodium Level 140 mmol/L (136-145) Potassium Level 4.1 mmol/L (3.5-5.1) Chloride Level 98 mmol/L (98-107) Carbon Dioxide Level 35 mmol/L (21-32) H Anion Gap 7 (6-14) Blood Urea Nitrogen 11 mg/dL (7-20) Creatinine 0.7 mg/dL (0.6-1.0) Estimated GFR (Cockcroft-Gault) 102.6 BUN/Creatinine Ratio 16 (6-20) Glucose Level 189 mg/dL (70-99) H Calcium Level 10.1 mg/dL (8.5-10.1) Total Bilirubin 0.5 mg/dL (0.2-1.0) Aspartate Amino Transferase (AST) 12 U/L (15-37) L Alanine Aminotransferase (ALT) 18 U/L (14-59) Alkaline Phosphatase 116 U/L (46-116) Troponin I Quantitative < 0.017 ng/mL (0.000-0.055) Total Protein 8.2 g/dL (6.4-8.2) Albumin 3.6 g/dL (3.4-5.0) Albumin/Globulin Ratio 0.8 (1.0-1.7) L Laboratory Tests 11/19/16 13:50 Laboratory Tests 11/19/16 13:50 EKG EKG 1343: EKG shows sinus tach rate of 104 no STEMI and overall no change from previous EKG done on October 31, 2016] Radiology/Procedures Radiology/Procedures CTA of the chest shows no acute abnormalities no PE [] Course & Med Decision Making Course & Med Decision Making Pertinent Labs and Imaging studies reviewed. (See chart for details) ED course: Patient was seen and examined in the emergency room cardiac workup was ordered along with a CT angios the chest 1515: Patient was updated on CT findings and laboratory results on reexamination still having some mild chest heaviness 1520: Discussed CC/HP/PMH with Dr. Pat and recommends admit to hospitalist with her on consult 1525: Discussed CC/HP/PMH with Dr. Rhodes and recommends admit [] [] Dragon Disclaimer Dragon Disclaimer This electronic medical record was generated, in whole or in part, using a voice recognition dictation system. Departure Departure Impression: Primary Impression: Chest pain Disposition: ADMITTED INPATIENT Admitting Physician: Other (Fitz) Condition: STABLE Referrals: INDERJIT KOCH MD (PCP) CARRI LUNA DO Nov 19, 2016 16:12
[2016-11-19] MEDS ORDERED: ONDANSETRON PF 4 MG/2 ML VIAL. IV PRN (16:15)
[2016-11-19] MEDS ORDERED: NITROGLYCERIN SUBLINGUAL 0.4 MG BOTTLE OF 25. SL PRN ×2 (16:15→20:00)
[2016-11-19] MEDS: MORPHINE SULFATE 4 MG/ML DISP.SYRIN. IV PRN ×3 (16:34→21:55)
[2016-11-19 18:00] VITALS: BP 185/72
[2016-11-19 19:20] VITALS: BP 175/73
[2016-11-19] MEDS ORDERED: oxyCODONE/APAP 10/325 1 TAB TABLET PO PRN (20:00)
[2016-11-19] MEDS ORDERED: DEXTROSE 50% 25 GM / 50ML DISP.SYRIN. IV PRN (20:15)
[2016-11-19] MEDS: INSULIN ASPART 300 UNITS/3 ML INSULN.PEN SQ SCH (20:19)
[2016-11-19] MEDS: METOPROLOL TART IMMED RELEASE 25 MG TABLET. PO SCH (20:28)
[2016-11-19] MEDS: FAMOTIDINE 20 MG TABLET. PO SCH (20:29)
[2016-11-19] MEDS: INSULIN DETEMIR 300 UNITS/3 ML INSULN.PEN. SQ SCH (20:34)
[2016-11-19] MEDS ORDERED: hydrALAZINE 20 MG/ML VIAL. IVP PRN (20:45)
[2016-11-19] MEDS ORDERED: FUROSEMIDE 80 MG TABLET. PO SCH (21:00)
[2016-11-19] MEDS ORDERED: ATORVASTATIN CALCIUM 20 MG TABLET PO SCH (21:00)
[2016-11-19] MEDS ORDERED: INSULIN DETEMIR 300 UNITS/3 ML INSULN.PEN. SQ SCH (21:00)
[2016-11-19] MEDS ORDERED: LOSARTAN POTASSIUM 50 MG TABLET. PO ONE (22:30)
[2016-11-19] MEDS ORDERED: ASA/APAP/CAFFEINE 250/250/65MG TABLET. PO PRN (22:45)
--- NOTE | 2016-11-19 23:10 | CONS ---
DATE OF CONSULTATION: 11/19/2016 HISTORY OF PRESENT ILLNESS: This is a 61-year-old black female who came into the Emergency Room with headache followed by chest pain. She was recently hospitalized with chest pain. She had undergone a cardiac catheterization. It revealed a patent GARCIA to the LAD. There was competitive flow. The mid LAD had previously been totally occluded in 2014, but since then has recanalized. There is also a patent vein graft to the OM branch. It fills the OM branch and several small branches of the circumflex coronary artery. The [place] circumflex coronary artery was totally occluded. The right coronary artery had no significant disease. 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 The rest of the left ventricle contracted normally and the ejection fraction is estimated to be 60%. She had also undergone an echocardiogram, but this was extremely difficult because of her weight. Thus, good views were not obtained. During that hospitalization, her blood pressure was fairly well controlled with a systolic blood pressure 150-160 mmHg. She was also seen in consultation by Dr. Rousseau, the clinical informatics spec. Since going home, I had seen her once in the office; at which time, her blood pressure was acceptable. She did not have any significant chest pain. She has been on beta blockers. She had been on lisinopril, but this was recently changed to losartan. She has diabetes mellitus. During her last hospitalization, the hemoglobin A1c was 7.3. The total cholesterol was 164, LDL cholesterol 105 and HDL cholesterol was 40. The TSH was 3.128. PRESENT MEDICATIONS: Listed as: 1. Aspirin 81 mg a day. 2. Atorvastatin 20 mg a day. 3. Clopidogrel 75 mg a day. 4. Famotidine 20 mg a day. 5. Ferrous sulfate 325 mg a day. 6. Furosemide 80 mg 3 times a day and I am not quite sure why she takes that often. 7. NovoLog 20 units before each meal. 8. Levemir 32 units twice a day. 9. Metoprolol tartrate 25 mg a day. 10. Oxycodone. 11. Potassium chloride 10 mEq twice a day. The patient stated that she also is on losartan, though she did not list that as one of her medications. SOCIAL HISTORY: She does not smoke or take alcohol. PHYSICAL EXAMINATION: VITAL SIGNS: She was somewhat tachycardic with a heart rate of 90 beats per minute. The blood pressure was 202/91. LUNGS: Clear. HEART: The heart sounds are normal with no murmur or gallop. ABDOMEN: Soft. EXTREMITIES: There is no edema of the legs. IMPRESSION: 1. Accelerated hypertension. The patient states that she has never had severe hypertension like this before. We might need to consider renal artery stenosis. 2. Headaches secondary to the hypertension. 3. Chest pain, etiology unclear. It certainly is not due to coronary artery disease. One may need to consider the possibility of the left ventricular possible aneurysm causing it with her present hypertension. 4. History of chronic obstructive pulmonary disease, evaluated by the clinical informatics spec in the last admission. 5. Insulin-dependent diabetes mellitus. 6. Dyslipidemia. LDL not yet at goal with statin. At this time, I would control the blood pressure with increased dose of ARB and adding hydralazine and nitrates that seemed to be effective ____. One would also need to consider at least noninvasive evaluation for renal artery stenosis. Thank you very much for asking me to see her. NYDIA JEREZ MD DR: HUGH/amrik JOB#: [id number] / [id number]
[2016-11-19 23:15] VITALS: BP 150/60
--- NOTE | 2016-11-19 23:23 | HP ---
ADMIT DATE: 11/19/2016 CHIEF COMPLAINT: Chest pain. HISTORY OF PRESENT ILLNESS: The patient is a 61-year-old morbidly obese -[place] woman with past medical history of diabetes, hypertension and CAD who presented to the Emergency Room with substernal chest heaviness accompanied with some mild shortness of breath. She relates that she actually took 2 nitro at home, which did not help the chest pain at all, but caused severe headache, which actually brought her to the Emergency Room. She relates that she has had headaches since waking up this morning as well as some nausea, no vomiting, no diarrhea or abdominal pain. She denies any other symptoms including fevers or chills. She denies any radiation of her chest pain, any dizziness, or lightheadedness. Of note, the patient actually had undergone a cardiac catheterization by Dr. Arias just one week ago, which was deemed to be "clean". PAST MEDICAL HISTORY: Diabetes, hypertension, CAD, status post cath last week, diabetic neuropathy. PAST SURGICAL HISTORY: She is status post cholecystectomy, hysterectomy, and knee replacement. FAMILY HISTORY: Positive for heart disease, diabetes. SOCIAL HISTORY: Lives with her family. No toxic habits. ALLERGIES: No known drug allergies. MEDICATIONS: MAR reconciled with home medications. REVIEW OF SYSTEMS: Positive as per HPI. Rest of organ system review is negative. PHYSICAL EXAMINATION: VITAL SIGNS: From today show a blood pressure of 135/73, heart rate of 98 and respiratory rate at 18. She is afebrile. GENERAL: This is a morbidly obese -[place] woman, alert and oriented, in no acute distress. LUNGS: Clear to auscultation bilaterally. HEART: Regular rate and rhythm. ABDOMEN: Has positive bowel sounds, mild tenderness to palpation. EXTREMITIES: Show no edema, no clubbing, no cyanosis. SKIN: Warm, soft and dry. LABORATORY DATA: CBC from today shows a WBC of 9.7, hemoglobin 12.8, platelets of 383, BUN and creatinine of 11 and 0.7, normal electrolytes, CO2 at 35. LFTs within normal. Glucose at 189; evening fingerstick at 238. Most recent hemoglobin A1c on 11/02/2016 was 7.3. Liver panel obtained on same day was essentially within normal limits. ASSESSMENT AND PLAN: The patient is a 61-year-old morbidly obese woman with CAD, recent clean cath, obstructive sleep apnea, and gastroesophageal reflux disease who presents with substernal chest pain, not responsive to nitro. She is admitted to the cardiac care unit for further management. She will be observed. Serial enzymes will be obtained. Strong suspicion, however, is that this is not cardiac, but rather GI related. She is on H2 blockers b.i.d. Consider switching to PPI. Symptoms now have completely resolved. For her headaches, an order for Excedrin has been given. Will continue her home oxygen. Does not have a CPAP with her here, but apparently compliant at home. She is borderline hypercarbic, which I suspect is due to obesity related hypoventilation. Continue O2 home 3 liters of oxygen as needed here. Anticipate that she will rule out tomorrow. 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 Pat, has been consulted. We will await further evaluation versus discharge to home. ANNABELLE BOWMAN MD DR: UR/nts JOB#: [id number] / [id number] NYDIA Rodriguez MD MTDD
[2016-11-20] MEDS: MORPHINE SULFATE 4 MG/ML DISP.SYRIN. IV PRN ×2 (01:04→06:08)
[2016-11-20 03:30] VITALS: BP 121/63
[2016-11-20] MEDS: oxyCODONE/APAP 10/325 1 TAB TABLET PO PRN ×2 (03:38→10:46)
[2016-11-20 06:49] LABS: BASO % 1 % (0-3); EOS % 1 % (0-3); HEMATOCRIT 37.6 % (36.0-47.0); HEMOGLOBIN 11.8 g/dL (12.0-15.5); LYMPH # 2.2 x10^3/uL (1.0-4.8); LYMPH % 22 % (24-48); MEAN CORPUSCULAR HEMOGLOBIN 27 pg (25-35); MEAN CORPUSCULAR HGB CONC 32 g/dL (31-37); MEAN CORPUSCULAR VOLUME 85 fL (79-100); MONO % 8 % (0-9); NEUT % 69 % (31-73); PLATELET COUNT 371 x10^3/uL (140-400); RED BLOOD COUNT 4.44 x10^6/uL (3.50-5.40); RED CELL DISTRIBUTION WIDTH 17.3 % (11.5-14.5); WHITE BLOOD COUNT 9.7 x10^3/uL (4.0-11.0)
[2016-11-20 07:00] VITALS: BP 116/62
[2016-11-20 07:12] LABS: CALCIUM 9.6 mg/dL (8.5-10.1); CREATININE 1.1 mg/dL (0.6-1.0); GFR 60.9; POTASSIUM 3.8 mmol/L (3.5-5.1)
[2016-11-20] MEDS ORDERED: POTASSIUM CHLORIDE 10 MEQ TABLET.ER. PO SCH (08:00)
[2016-11-20] MEDS ORDERED: LOSARTAN POTASSIUM 50 MG TABLET. PO SCH (09:00)
[2016-11-20] MEDS ORDERED: CLOPIDOGREL BISULFATE 75 MG TABLET PO SCH (09:00)
[2016-11-20] MEDS ORDERED: FERROUS SULFATE 325 MG TABLET. PO SCH (09:00)
[2016-11-20] MEDS: METOPROLOL TART IMMED RELEASE 25 MG TABLET. PO SCH (09:00)
[2016-11-20] MEDS ORDERED: ASPIRIN ENTERIC COATED 81 MG TABLET.DR. PO SCH (09:00)
[2016-11-20] MEDS: FAMOTIDINE 20 MG TABLET. PO SCH (09:16)
[2016-11-20] MEDS: FUROSEMIDE 40 MG TABLET. PO SCH ×2 (09:17→14:00)
[2016-11-20] MEDS: INSULIN DETEMIR 300 UNITS/3 ML INSULN.PEN. SQ SCH (09:22)
[2016-11-20] MEDS: INSULIN ASPART 300 UNITS/3 ML INSULN.PEN SQ SCH ×2 (09:22→12:44)
[2016-11-20 11:00] VITALS: BP 104/55
--- NOTE | 2016-11-20 11:39 | RAD ---
Exam performed: Renal artery Doppler. History: Severe Hypertension, evaluation of renal artery stenosis. Date of service: 11/19/16. Comparison: None available Technique: Real-time grayscale, color-flow, duplex Doppler and spectral analysis of the kidneys is performed and images are obtained. Findings: The right kidney measures 11.5 cm in length and the left kidney measures 12.6 cm in length. There is no hydronephrosis or nephrolithiasis. Doppler interrogation of the renal arteries is performed as follows. The peak systolic velocity in the proximal right renal artery measures 188.0 cm/s whereas on the left measures 118.0 cm/s. Peak systolic velocity in the mid right renal artery measures 203.0 cm/s whereas on the left measures 138.0 cm/s. Peak systolic velocity in the distal right renal artery measures 91.0 cm/s whereas on the left measures 137.0 cm/s. Peak systolic velocity in the aorta measures 160.0 cm/s The renal artery to aortic ratio measures 1.2 whereas on the left measures 0.8. Impression: Normal bilateral kidneys. Mildly elevated peak systolic velocity in the mid right renal artery suspicious for renal artery stenosis. Further evaluation with CT or MR angiogram may be obtained to evaluate exact extent of stenosis
[2016-11-20] MEDS ORDERED: IV NORMAL SALINE 500ML BAG 500 ML IV ONE (13:15)
[2016-11-20] MEDS ORDERED: FURO80TA72 PO (13:18)
[2016-11-20] MEDS ORDERED: oxyCODONE/APAP 10/325 1 TAB TABLET PO PRN (13:30)
[2016-11-20 14:12] LABS: CREATININE 1.2 mg/dL (0.6-1.0); GFR 55.1
[2016-11-20 15:00] VITALS: BP 108/56
--- NOTE | 2016-11-21 22:57 | DS ---
DATE OF DISCHARGE: 11/20/2016 CHIEF COMPLAINT: Chest pain. HOSPITAL COURSE: The patient is a 61-year-old morbidly obese -[place] woman with past medical history of diabetes, hypertension, CAD who presented to the Emergency Room with substernal chest heaviness accompanied by mild shortness of breath, unresponsive to nitroglycerin. She was admitted for observation and ACS rule out. Of note, Dr. Arias actually had done a cardiac catheterization on her 10 days prior without any significant findings. With heart issues ruled out, the pain was thought to be secondary to GERD with poor eating habits. PHYSICAL EXAMINATION: VITAL SIGNS: Show a blood pressure of 108/56, heart rate of 74, respiratory rate at 19. She is afebrile. GENERAL: This is a morbidly obese -[place] woman, alert and oriented, in no acute distress. LUNGS: Clear to auscultation bilaterally. HEART: Has regular rate and rhythm. ABDOMEN: Has positive bowel sounds, soft, nontender. EXTREMITIES: Showed no edema. DISCHARGE DIAGNOSES: History of coronary artery disease, gastroesophageal reflux disease. DISCHARGE DISPOSITION: To home. DISCHARGE CONDITION: Improved. DISCHARGE MEDICATIONS: Please refer to MAR. DISCHARGE INSTRUCTIONS: The patient will follow up with PCP in 1 week. ANNABELLE BOWMAN MD DR: KIMBERLEE/nts JOB#: [id number] / [id number] INDERJIT Gonzalez MD MTDD
== END 2016-11-20 16:00 | disposition home or self-care (01) ==
LOC: ER 13:34 → 2 NORTH 16:13
PROVIDERS: ADMIT Internal Medicine Hematology & Oncology; ATTEND Internal Medicine Hematology & Oncology
DX: R07.2 Precordial pain (principal); I25.10 Atherosclerotic heart disease of native coronary artery without angina pectoris; E66.01 Morbid (severe) obesity due to excess calories; K21.9 Gastro-esophageal reflux disease without esophagitis; E11.40 Type 2 diabetes mellitus with diabetic neuropathy, unspecified; I10 Essential (primary) hypertension; E78.5 Hyperlipidemia, unspecified; G47.33 Obstructive sleep apnea (adult) (pediatric); J44.9 Chronic obstructive pulmonary disease, unspecified; I25.2 Old myocardial infarction; Z79.4 Long term (current) use of insulin; Z83.3 Family history of diabetes mellitus; Z90.49 Acquired absence of other specified parts of digestive tract; Z90.710 Acquired absence of both cervix and uterus; Z96.659 Presence of unspecified artificial knee joint
CPT/HCPCS: 36415; 71275; 76770; 80048; 80053; 82565; 82962; 84484; 85025; 93005; 96361; 96372; 96374; 96375; 96376; 99285; G0378; J0360; J1815; J2270; J2405; J7040; Q9967; G0379

== ENCOUNTER 2017-01-06 12:35 | Inpatient (IN) | payer OTHER ==
[~2017-01-06] VITALS: Ht 162.6 cm; Wt 110.2 kg
--- NOTE | 2017-01-06 13:37 | PHYS DOC ---
Past Medical History Past Medical History: Diabetes-Type II, Hypertension, ND Additional Past Medical Histor: neuropathy Past Surgical History: Cholecystectomy, Hysterectomy, Knee Replacement, Other Additional Past Surgical Histo: hernia repair, breast reduction, heart, cardiac cath/stent Alcohol Use: None Drug Use: None Adult General Chief Complaint Chief Complaint: SHORTNESS OF BREATH HPI HPI Patient is a 61 year old F who presents with chest pain and shortness of breath for the past 2 days. Patient states she had a CABG in 2015 and the symptoms feel similar to her previous heart attack. Patient states the chest pain is central nonradiating. Patient states she has increasing chest patient was breath with exertion. Patient denies any nausea/vomiting/diarrhea. Patient has no other complaints. Review of Systems Review of Systems GEN: Denies fevers, chills, sweats HEENT: Denies blurred vision, sore throat CV: chest pain RESP: Shortness of breath GI: Denies n/v/d NEURO: Denies confusion, dizziness MSK: Denies weakness, joint pain/swelling Current Medications Current Medications Current Medications Medications (Trade) Dose Ordered Sig/Susan Start Time Stop Time Status Last Admin Dose Admin Info (Do NOT chart on this entry -- for MONITORING) 1 each PRN DAILY PRN 01/06/17 15:00 01/08/17 14:59 Iohexol (Omnipaque 300 Mg/ml) 75 ml 1X ONCE 01/06/17 15:00 01/06/17 15:01 DC 01/06/17 14:59 75 ML Morphine Sulfate 4 mg 1X ONCE 01/06/17 15:00 01/06/17 15:01 DC 01/06/17 15:08 4 MG Nitroglycerin (Nitro-Dur 0.1mg) 1 patch DAILY 01/07/17 09:00 UNV Nitroglycerin (Nitrostat) 0.4 mg PRN Q5MIN PRN 01/06/17 16:30 Allergies Allergies Allergies Coded Allergies Type Severity Reaction Last Updated Verified No Known Drug Allergies 08/01/13 No Physical Exam Physical Exam GEN.: No apparent distress. Alert and oriented. HEENT: Head is normocephalic, atraumatic NECK: Supple. LUNGS: CTAB. HEART: RRR, S1, S2 present. Peripheral pulses intact ABDOMEN: Soft, nontender. Positive bowel sounds. EXTREMITIES: Without any cyanosis. NEUROLOGIC: Normal speech, normal tone PSYCHIATRIC: Normal affect, normal mood. SKIN: No ulcerations Current Patient Data Vital Signs Vital Signs Date Time Temp Pulse Resp B/P (MAP) Pulse Ox O2 Delivery O2 Flow Rate FiO2 01/06/17 15:08 Room Air 01/06/17 13:10 98.5 81 20 187/93 (124) 95 98.5 Lab Values Laboratory Tests Test 01/06/17 13:20 White Blood Count 7.6 x10^3/uL (4.0-11.0) Red Blood Count 4.72 x10^6/uL (3.50-5.40) Hemoglobin 12.7 g/dL (12.0-15.5) Hematocrit 39.4 % (36.0-47.0) Mean Corpuscular Volume 84 fL (79-100) Mean Corpuscular Hemoglobin 27 pg (25-35) Mean Corpuscular Hemoglobin Concent 32 g/dL (31-37) Red Cell Distribution Width 16.0 % (11.5-14.5) H Platelet Count 380 x10^3/uL (140-400) Neutrophils (%) (Auto) 75 % (31-73) H Lymphocytes (%) (Auto) 17 % (24-48) L Monocytes (%) (Auto) 6 % (0-9) Eosinophils (%) (Auto) 1 % (0-3) Basophils (%) (Auto) 1 % (0-3) Neutrophils # (Auto) 5.7 x10^3uL (1.8-7.7) Lymphocytes # (Auto) 1.3 x10^3/uL (1.0-4.8) Monocytes # (Auto) 0.5 x10^3/uL (0.0-1.1) Eosinophils # (Auto) 0.0 x10^3/uL (0.0-0.7) Basophils # (Auto) 0.0 x10^3/uL (0.0-0.2) D-Dimer (Anila) 0.54 ug/mlFEU (0.00-0.50) H Sodium Level 138 mmol/L (136-145) Potassium Level 4.3 mmol/L (3.5-5.1) Chloride Level 99 mmol/L (98-107) Carbon Dioxide Level 34 mmol/L (21-32) H Anion Gap 5 (6-14) L Blood Urea Nitrogen 10 mg/dL (7-20) Creatinine 0.7 mg/dL (0.6-1.0) Estimated GFR (Cockcroft-Gault) 102.6 BUN/Creatinine Ratio 14 (6-20) Glucose Level 162 mg/dL (70-99) H Calcium Level 9.6 mg/dL (8.5-10.1) Total Bilirubin 0.3 mg/dL (0.2-1.0) Aspartate Amino Transferase (AST) 19 U/L (15-37) Alanine Aminotransferase (ALT) 21 U/L (14-59) Alkaline Phosphatase 114 U/L (46-116) Troponin I Quantitative 0.018 ng/mL (0.000-0.055) Total Protein 7.8 g/dL (6.4-8.2) Albumin 3.4 g/dL (3.4-5.0) Albumin/Globulin Ratio 0.8 (1.0-1.7) L Laboratory Tests 01/06/17 13:20 Laboratory Tests 01/06/17 13:20 EKG EKG 1311: EKG shows normal sinus rhythm rate of 83 no STEMI and no change from previous EKG done on October 31, 2016[] Radiology/Procedures Radiology/Procedures Chest x-ray NAD CT angiogram of the chest no PE or dissection[] Course & Med Decision Making Course & Med Decision Making Pertinent Labs and Imaging studies reviewed. (See chart for details) ED course: Patient is seen and examined emergency room cardiac workup was ordered along with a d-dimer 1430: Patient d-dimer came back elevated therefore CT angios the chest was ordered 1630: Discussed CC/HP/PMH with Dr. Pat and recommends admit to the hospitalist with her on consult 1635: Discussed CC/HP/PMH with Dr. macias and recommends admit [] MDM: After reviewing the chart, CC/HPI/PMH, physical exam, [lab results], [ radiological results], I do not believe the patient's having a STEMI, PE or thoracic aortic dissection however given the patient's significant cardiac risk factors and persistent chest pain will admit for further evaluation and management. [] Dragon Disclaimer Dragon Disclaimer This electronic medical record was generated, in whole or in part, using a voice recognition dictation system. Departure Departure Impression: Primary Impression: Chest pain Disposition: ADMITTED INPATIENT Admitting Physician: Kelsie Macias Condition: STABLE Referrals: INDERJIT KOCH MD (PCP) CARRI LUNA DO Jan 06, 2017 13:37
[2017-01-06 13:39] LABS: BASO % 1 % (0-3); EOS % 1 % (0-3); HEMATOCRIT 39.4 % (36.0-47.0); HEMOGLOBIN 12.7 g/dL (12.0-15.5); LYMPH # 1.3 x10^3/uL (1.0-4.8); LYMPH % 17 % (24-48); MEAN CORPUSCULAR HEMOGLOBIN 27 pg (25-35); MEAN CORPUSCULAR HGB CONC 32 g/dL (31-37); MEAN CORPUSCULAR VOLUME 84 fL (79-100); MONO % 6 % (0-9); NEUT % 75 % (31-73); PLATELET COUNT 380 x10^3/uL (140-400); RED BLOOD COUNT 4.72 x10^6/uL (3.50-5.40); WHITE BLOOD COUNT 7.6 x10^3/uL (4.0-11.0)
--- NOTE | 2017-01-06 13:40 | EKG ---
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
--- NOTE | 2017-01-06 13:50 | RAD ---
Single view of the Chest 01/06/2017 3:19 PM Indication: Chest pain Comparison: Chest radiograph October 31, 2016 Findings: No pneumothorax or definitive pleural effusion is seen. The heart is enlarged, but stable from prior study. Prior median sternotomy and changes of prior CABG surgery noted. No acute osseous changes are identified. Impression: Stable chest without evidence of acute cardiopulmonary process.
[2017-01-06 13:53] LABS: CALCIUM 9.6 mg/dL (8.5-10.1); CREATININE 0.7 mg/dL (0.6-1.0); GFR 102.6; POTASSIUM 4.3 mmol/L (3.5-5.1)
[2017-01-06 14:07] LABS: ALBUMIN 3.4 g/dL (3.4-5.0); ALBUMIN/GLOBULIN RATIO 0.8 (1.0-1.7); TOTAL BILIRUBIN 0.3 mg/dL (0.2-1.0); TOTAL PROTEIN 7.8 g/dL (6.4-8.2)
[2017-01-06] MEDS ORDERED: IOHEXOL 300 MG/ML 75 ML VIAL IV ONE (15:00)
[2017-01-06] MEDS ORDERED: CONTRAST GIVEN MC PRN (15:00)
[2017-01-06] MEDS ORDERED: MORPHINE SULFATE 4 MG/ML DISP.SYRIN. IV ONE (15:00)
[2017-01-06] MEDS ORDERED: MORPHINE SULFATE 4 MG/ML DISP.SYRIN. IM ONE (15:00)
--- NOTE | 2017-01-06 15:45 | RAD ---
Indication: Short of air, midsternal chest pain Technique: Axial images and coronal and sagittal maximum intensity projection reformatted images are provided. 75 mL of intravenous Omnipaque 300 was administered without complication. Comparison is from November 19, 2016. One or more of the following individualized dose reduction techniques were utilized for this examination: 1. Automated exposure control 2. Adjustment of the mA and/or kV according to patient size 3. Use of iterative reconstruction technique Findings: There is no central filling defect to suggest pulmonary embolism. Mixing artifact limits evaluation for a small peripheral embolus. There is atheromatous disease in the thoracic aorta. The heart is enlarged. Coronary artery calcifications are noted. There is no hilar or mediastinal adenopathy. Median sternotomy wires and postoperative findings of CABG are noted. Central airways are patent. There are bands of atelectasis but no consolidation. There is a 4 mm nodule in the right upper lobe on image 46, stable. There is no pleural effusion. There is fatty infiltration of the liver. There are degenerative changes in the spine. Impression: 1. Negative for pulmonary embolism. 2. Cardiomegaly. 3. Pulmonary nodule, stability can be documented back to a 2008 CT chest. Therefore, no further workup is required per Fleischner Society guidelines.
[2017-01-06] MEDS ORDERED: NITROGLYCERIN SUBLINGUAL 0.4 MG BOTTLE OF 25. SL PRN ×3 (16:30→17:15)
[2017-01-06] MEDS ORDERED: ONDANSETRON PF 4 MG/2 ML VIAL. IV PRN (16:45)
--- NOTE | 2017-01-06 17:13 | PDOC1 ---
History and Physical Date of Admission Date of Admission DATE: 01/06/17 TIME: 17:11 Identification/Chief Complaint Chief Complaint chest pain and shortness of breath Problems: Source Source: Chart review, Patient History of Present Illness History of Present Illness Ms. Laguna is a 61 year old F ofelia from ER with acute chest pain and shortness of breath for the past 2 days. she is in a little distress, complains of headache and chest pain. She was the [facility] yesterday and could not walk, marked new [place], she just sat by the entrance and waited for her family to return Patient states she had a CABG in 2014 and the symptoms feel similar to her previous heart attack, as 10/31 chest pain is central nonradiating Past Medical History Cardiovascular: HTN Pulmonary: No pertinent hx GI: No pertinent hx Heme/Onc: No pertinent hx Hepatobiliary: No pertinent hx Psych: No pertinent hx Rheumatologic: No pertinent hx Endocrine: Diabetes Past Surgical History Past Surgical History: Appendectomy, Total knee replacement Family History Family History: Diabetes Social History Smoke: No ALCOHOL: none Drugs: None Current Medications Current Medications Current Medications Morphine Sulfate 4 mg 1X ONCE IM ; Start 01/06/17 at 15:00; Stop 01/06/17 at 15:01; Status Cancel Iohexol (Omnipaque 300 Mg/ml) 75 ml 1X ONCE IV Last administered on t 14:59; Start 01/06/17 at 15:00; Stop 01/06/17 at 15:01; Status DC Info (Do NOT chart on this entry -- for MONITORING) 1 each PRN DAILY PRN MC SEE COMMENTS; Start 01/06/17 at 15:00; Stop 01/08/17 at 14:59 Morphine Sulfate 4 mg 1X ONCE IV Last administered on 01/06/17t 15:08; Start 01/06/17 at 15:00; Stop 01/06/17 at 15:01; Status DC Nitroglycerin (Nitro-Dur 0.1mg) 1 patch DAILY TD ; Start 01/07/17 at 09:00; Status UNV Nitroglycerin (Nitrostat) 0.4 mg PRN Q5MIN PRN SL CHEST PAIN; Start 01/06/17 at 16:30 Ondansetron HCl (Zofran) 4 mg PRN Q8HRS PRN IV NAUSEA/VOMITING; Start at 16:45; Stop 01/07/17 at 16:44 Morphine Sulfate 4 mg PRN Q2HR PRN IV PAIN; Start 01/06/17 at 16:45; Stop at 16:44 Nitroglycerin (Nitrostat) 0.4 mg PRN Q5MIN PRN SL CHEST PAIN; Start 01/06/17 at 16:45; Stop 01/07/17 at 16:44 Active Scripts Active Lasix (Furosemide) 80 Mg Tablet 1 Tab PO BID Reported Ferrous Sulfate 325 Mg Tablet 1 Tab PO DAILY NITROGLYCERIN SubLingual (Nitroglycerin) 0.4 Mg Tab.subl 0.4 Mg SL PRN Q5MIN PRN Metoprolol Tartrate 25 Mg Tablet 1 Tab PO BID Percocet 10-325 Mg Tablet (Oxycodone/Acetaminophen) 1 Each Tablet 2 Tab PO PRN Q6HRS PRN Levemir Flextouch (Insulin Detemir) 100 Unit/1 Ml Insuln.pen 32 Unit SQ BID Novolog Flexpen (Insulin Aspart) 100 Unit/1 Ml Insuln.pen 20 Unit SQ TIDWMEALS Atorvastatin Calcium 20 Mg Tablet 20 Mg PO HS Potassium Chloride 10 Meq Capsule.er 10 Meq PO BID Aspir 81 (Aspirin) 81 Mg Tablet.dr 1 Tab PO DAILY Clopidogrel (Clopidogrel Bisulfate) 75 Mg Tablet 1 Tab PO DAILY Famotidine 20 Mg Tablet 20 Mg PO BID Percocet 10-325 Mg Tablet (Oxycodone/Acetaminophen) 1 Each Tablet 2 Tab PO Q4- 6HRS PRN Allergies Allergies: Coded Allergies: No Known Drug Allergies (Unverified , 08/01/13) ROS General: No: Chills, Night Sweats, Fatigue, Malaise, Appetite, Other PSYCHOLOGICAL ROS: No: Anxiety, Behavioral Disorder, Concentration difficultie , Decreased libido, Depression, Disorientation, Hallucinations, Hostility, Irritablity, Memory difficulties, Mood Swings, Obsessive thoughts, Physical abuse, Sexual abuse, Sleep disturbances, Suicidal ideation, Other Eyes: No Blurry vision, No Decreased vision, No Double vision, No Dry eyes, No Excessive tearing, No Eye Pain, No Itchy Eyes, No Loss of vision, No Photophobia , No Scotomata, No Uses contacts, No Uses glasses, No Other HEENT: No: Heacaches, Visual Changes, Hearing change, Nasal congestion, Nasal discharge, Oral lesions, Sinus pain, Sore Throat, Epistaxis, Sneezing, Snoring, Tinnitus, Vertigo, Vocal changes, Other Respiratory: No: Cough, Hemoptysis, Orthopnea, Pleuritic Pain, Shortness of breath, SOB with excertion, Sputum Changes, Stridor, Tachypnea, Wheezing, Other Genitourinary: No Dysuria, No Frequency, No Incontinence, No Hematuria, No Retention, No Discharge, No Urgency, No Pain, No Flank Pain, No Other, No , No , No , No , No , No , No Musculoskeletal: No Gait Disturbance, No Joint Pain, No Joint Stiffness, No Joint Swelling, No Muscle Pain, No Muscular Weakness, No Pain In:, No Swelling In:, No Other Neurological: No Behavorial Changes, No Bowel/Bladder ControlChng, No Confusion , No Dizziness, No Gait Disturbance, No Headaches, No Impaired Coord/balance, No Memory Loss, No Numbness/Tingling, No Seizures, No Speech Problems, No Tremors, No Visual Changes, No Weakness, No Other Skin: No Dry Skin, No Eczema, No Hair Changes, No Lumps, No Mole Changes, No Mottling, No Nail Changes, No Pruritus, No Rash, No Skin Lesion Changes, No Other, No Acne Physical Exam General: Alert, Cooperative, No acute distress, mild distress HEENT: Atraumatic, PERRLA, EOMI, Mucous membr. moist/pink Heart: S1S2, no gallops Abdomen: Normal bowel sounds, Soft Extremities: No clubbing, No edema Skin: No rashes, No significant lesion Neuro: Normal speech, Normal tone Vitals Vitals Vital Signs Date Time Temp Pulse Resp B/P (MAP) Pulse Ox O2 Delivery O2 Flow Rate FiO2 01/06/17 15:08 Room Air 01/06/17 13:10 98.5 81 20 187/93 (124) 95 98.5 Labs Labs Laboratory Tests Test 01/06/17 13:20 White Blood Count 7.6 x10^3/uL (4.0-11.0) Red Blood Count 4.72 x10^6/uL (3.50-5.40) Hemoglobin 12.7 g/dL (12.0-15.5) Hematocrit 39.4 % (36.0-47.0) Mean Corpuscular Volume 84 fL (79-100) Mean Corpuscular Hemoglobin 27 pg (25-35) Mean Corpuscular Hemoglobin Concent 32 g/dL (31-37) Red Cell Distribution Width 16.0 % (11.5-14.5) Platelet Count 380 x10^3/uL (140-400) Neutrophils (%) (Auto) 75 % (31-73) Lymphocytes (%) (Auto) 17 % (24-48) Monocytes (%) (Auto) 6 % (0-9) Eosinophils (%) (Auto) 1 % (0-3) Basophils (%) (Auto) 1 % (0-3) Neutrophils # (Auto) 5.7 x10^3uL (1.8-7.7) Lymphocytes # (Auto) 1.3 x10^3/uL (1.0-4.8) Monocytes # (Auto) 0.5 x10^3/uL (0.0-1.1) Eosinophils # (Auto) 0.0 x10^3/uL (0.0-0.7) Basophils # (Auto) 0.0 x10^3/uL (0.0-0.2) D-Dimer (Anila) 0.54 ug/mlFEU (0.00-0.50) Sodium Level 138 mmol/L (136-145) Potassium Level 4.3 mmol/L (3.5-5.1) Chloride Level 99 mmol/L (98-107) Carbon Dioxide Level 34 mmol/L (21-32) Anion Gap 5 (6-14) Blood Urea Nitrogen 10 mg/dL (7-20) Creatinine 0.7 mg/dL (0.6-1.0) Estimated GFR (Cockcroft-Gault) 102.6 BUN/Creatinine Ratio 14 (6-20) Glucose Level 162 mg/dL (70-99) Calcium Level 9.6 mg/dL (8.5-10.1) Total Bilirubin 0.3 mg/dL (0.2-1.0) Aspartate Amino Transf (AST/SGOT) 19 U/L (15-37) Alanine Aminotransferase (ALT/SGPT) 21 U/L (14-59) Alkaline Phosphatase 114 U/L (46-116) Troponin I Quantitative 0.018 ng/mL (0.000-0.055) Total Protein 7.8 g/dL (6.4-8.2) Albumin 3.4 g/dL (3.4-5.0) Albumin/Globulin Ratio 0.8 (1.0-1.7) Laboratory Tests Test 01/06/17 13:20 White Blood Count 7.6 x10^3/uL (4.0-11.0) Red Blood Count 4.72 x10^6/uL (3.50-5.40) Hemoglobin 12.7 g/dL (12.0-15.5) Hematocrit 39.4 % (36.0-47.0) Mean Corpuscular Volume 84 fL (79-100) Mean Corpuscular Hemoglobin 27 pg (25-35) Mean Corpuscular Hemoglobin Concent 32 g/dL (31-37) Red Cell Distribution Width 16.0 % (11.5-14.5) Platelet Count 380 x10^3/uL (140-400) Neutrophils (%) (Auto) 75 % (31-73) Lymphocytes (%) (Auto) 17 % (24-48) Monocytes (%) (Auto) 6 % (0-9) Eosinophils (%) (Auto) 1 % (0-3) Basophils (%) (Auto) 1 % (0-3) Neutrophils # (Auto) 5.7 x10^3uL (1.8-7.7) Lymphocytes # (Auto) 1.3 x10^3/uL (1.0-4.8) Monocytes # (Auto) 0.5 x10^3/uL (0.0-1.1) Eosinophils # (Auto) 0.0 x10^3/uL (0.0-0.7) Basophils # (Auto) 0.0 x10^3/uL (0.0-0.2) D-Dimer (Anila) 0.54 ug/mlFEU (0.00-0.50) Sodium Level 138 mmol/L (136-145) Potassium Level 4.3 mmol/L (3.5-5.1) Chloride Level 99 mmol/L (98-107) Carbon Dioxide Level 34 mmol/L (21-32) Anion Gap 5 (6-14) Blood Urea Nitrogen 10 mg/dL (7-20) Creatinine 0.7 mg/dL (0.6-1.0) Estimated GFR (Cockcroft-Gault) 102.6 BUN/Creatinine Ratio 14 (6-20) Glucose Level 162 mg/dL (70-99) Calcium Level 9.6 mg/dL (8.5-10.1) Total Bilirubin 0.3 mg/dL (0.2-1.0) Aspartate Amino Transf (AST/SGOT) 19 U/L (15-37) Alanine Aminotransferase (ALT/SGPT) 21 U/L (14-59) Alkaline Phosphatase 114 U/L (46-116) Troponin I Quantitative 0.018 ng/mL (0.000-0.055) Total Protein 7.8 g/dL (6.4-8.2) Albumin 3.4 g/dL (3.4-5.0) Albumin/Globulin Ratio 0.8 (1.0-1.7) VTE Prophylaxis Ordered VTE Prophylaxis Devices: Yes VTE Pharmacological Prophylaxi: Yes Assessment/Plan Assessment/Plan accelerated hypertension angina, exertional dyspnea on exertion, new, cardiomegaly on imaging, check echo headache obesity, BMI 41 DM2, poor control, on insulin admit from [facility] COX MD Jan 06, 2017 17:13
[2017-01-06] MEDS ORDERED: oxyCODONE/APAP 10/325 1 TAB TABLET PO PRN (17:15)
[2017-01-06] MEDS: MORPHINE SULFATE 4 MG/ML DISP.SYRIN. IV PRN ×3 (17:25→22:52)
[2017-01-06] MEDS: FUROSEMIDE 80 MG TABLET. PO SCH (18:12)
[2017-01-06] MEDS: INSULIN ASPART 300 UNITS/3 ML INSULN.PEN SQ SCH (18:13)
[2017-01-06] MEDS: NITROGLYCERIN 0.1MG/HR PATCH. TD SCH (18:15)
[2017-01-06 18:25] VITALS: BP 115/91
[2017-01-06] MEDS ORDERED: INFLUENZA VAX SCREEN BY RX. MC PRN (18:45)
[2017-01-06 19:15] VITALS: BP 139/62
[2017-01-06] MEDS ORDERED: FLU VACC QS2017-18 (36MOS+)/PF 0.5 ML SYRINGE. VAX IM ONE (21:00)
[2017-01-06] MEDS: FAMOTIDINE 20 MG TABLET. PO SCH (21:33)
[2017-01-06] MEDS: ATORVASTATIN CALCIUM 20 MG TABLET PO SCH (21:33)
[2017-01-06] MEDS: METOPROLOL TART IMMED RELEASE 25 MG TABLET. PO SCH (21:34)
[2017-01-06] MEDS: INSULIN DETEMIR 300 UNITS/3 ML INSULN.PEN. SQ SCH (21:37)
[2017-01-06 22:55] VITALS: BP 125/58
[2017-01-07] MEDS: MORPHINE SULFATE 4 MG/ML DISP.SYRIN. IV PRN ×3 (02:04→08:07)
[2017-01-07 03:10] VITALS: BP 128/59
[2017-01-07 06:02] LABS: BASO # 0.1 x10^3/uL (0.0-0.2); BASO % 1 % (0-3); EOS % 1 % (0-3); HEMATOCRIT 37.2 % (36.0-47.0); HEMOGLOBIN 11.9 g/dL (12.0-15.5); LYMPH # 2.1 x10^3/uL (1.0-4.8); LYMPH % 26 % (24-48); MEAN CORPUSCULAR HEMOGLOBIN 27 pg (25-35); MEAN CORPUSCULAR HGB CONC 32 g/dL (31-37); MEAN CORPUSCULAR VOLUME 84 fL (79-100); MONO % 7 % (0-9); NEUT % 65 % (31-73); PLATELET COUNT 340 x10^3/uL (140-400); RED BLOOD COUNT 4.44 x10^6/uL (3.50-5.40); RED CELL DISTRIBUTION WIDTH 15.7 % (11.5-14.5); WHITE BLOOD COUNT 8.2 x10^3/uL (4.0-11.0)
[2017-01-07 06:13] LABS: CALCIUM 8.9 mg/dL (8.5-10.1)
[2017-01-07 06:32] LABS: CHOLESTEROL/HDL RATIO 3.6
[2017-01-07 07:48] VITALS: BP 138/58
[2017-01-07] MEDS: FUROSEMIDE 80 MG TABLET. PO SCH ×2 (08:47→17:31)
[2017-01-07] MEDS: FAMOTIDINE 20 MG TABLET. PO SCH ×2 (08:47→20:59)
[2017-01-07] MEDS: FERROUS SULFATE 325 MG TABLET. PO SCH (08:47)
[2017-01-07] MEDS: CLOPIDOGREL BISULFATE 75 MG TABLET PO SCH (08:47)
[2017-01-07] MEDS: METOPROLOL TART IMMED RELEASE 25 MG TABLET. PO SCH ×2 (08:48→20:59)
[2017-01-07] MEDS: ASPIRIN ENTERIC COATED 81 MG TABLET.DR. PO SCH (08:48)
[2017-01-07] MEDS: INSULIN ASPART 300 UNITS/3 ML INSULN.PEN SQ SCH ×3 (08:53→17:34)
[2017-01-07 10:42] VITALS: BP 103/50
[2017-01-07] MEDS: oxyCODONE/APAP 10/325 1 TAB TABLET PO PRN ×3 (11:49→20:59)
[2017-01-07] MEDS: NITROGLYCERIN 0.1MG/HR PATCH. TD SCH (11:51)
--- NOTE | 2017-01-07 12:13 | PDOC ---
PROGRESS NOTES Chief Complaint Chief Complaint Chest pain SOB CABG (2014) Diabetes HTN Obesity BMI=41.3 History of Present Illness History of Present Illness Saw patient at bed side. She is alert, oriented and is able to carry a conversation. Appears to be doing better, however, will continue to monitor. Will have stress test tomorrow. X-ray showed cardiomegaly. Vitals Vitals Vital Signs Date Time Temp Pulse Resp B/P (MAP) Pulse Ox O2 Delivery O2 Flow Rate FiO2 01/07/17 11:49 16 Nasal Cannula 3.0 01/07/17 10:42 98.2 62 103/50 (67) 93 98.2 Physical Exam General: Alert, Oriented X3, Cooperative, No acute distress Heart: Regular rate Lungs: Clear Abdomen: Normal bowel sounds, Soft Extremities: No clubbing, No cyanosis, No edema Skin: No rashes, No significant lesion Labs LABS Laboratory Tests Test 01/06/17 13:20 01/06/17 18:08 01/06/17 20:36 01/06/17 22:45 White Blood Count 7.6 x10^3/uL (4.0-11.0) Red Blood Count 4.72 x10^6/uL (3.50-5.40) Hemoglobin 12.7 g/dL (12.0-15.5) Hematocrit 39.4 % (36.0-47.0) Mean Corpuscular Volume 84 fL (79-100) Mean Corpuscular Hemoglobin 27 pg (25-35) Mean Corpuscular Hemoglobin Concent 32 g/dL (31-37) Red Cell Distribution Width 16.0 % (11.5-14.5) Platelet Count 380 x10^3/uL (140-400) Neutrophils (%) (Auto) 75 % (31-73) Lymphocytes (%) (Auto) 17 % (24-48) Monocytes (%) (Auto) 6 % (0-9) Eosinophils (%) (Auto) 1 % (0-3) Basophils (%) (Auto) 1 % (0-3) Neutrophils # (Auto) 5.7 x10^3uL (1.8-7.7) Lymphocytes # (Auto) 1.3 x10^3/uL (1.0-4.8) Monocytes # (Auto) 0.5 x10^3/uL (0.0-1.1) Eosinophils # (Auto) 0.0 x10^3/uL (0.0-0.7) Basophils # (Auto) 0.0 x10^3/uL (0.0-0.2) D-Dimer (Anila) 0.54 ug/mlFEU (0.00-0.50) Sodium Level 138 mmol/L (136-145) Potassium Level 4.3 mmol/L (3.5-5.1) Chloride Level 99 mmol/L (98-107) Carbon Dioxide Level 34 mmol/L (21-32) Anion Gap 5 (6-14) Blood Urea Nitrogen 10 mg/dL (7-20) Creatinine 0.7 mg/dL (0.6-1.0) Estimated GFR (Cockcroft-Gault) 102.6 BUN/Creatinine Ratio 14 (6-20) Glucose Level 162 mg/dL (70-99) Calcium Level 9.6 mg/dL (8.5-10.1) Total Bilirubin 0.3 mg/dL (0.2-1.0) Aspartate Amino Transf (AST/SGOT) 19 U/L (15-37) Alanine Aminotransferase (ALT/SGPT) 21 U/L (14-59) Alkaline Phosphatase 114 U/L (46-116) Troponin I Quantitative 0.018 ng/mL (0.000-0.055) 0.027 ng/mL (0.000-0.055) Total Protein 7.8 g/dL (6.4-8.2) Albumin 3.4 g/dL (3.4-5.0) Albumin/Globulin Ratio 0.8 (1.0-1.7) Glucose (Fingerstick) 133 mg/dL (70-99) 125 mg/dL (70-99) Test 01/07/17 05:10 01/07/17 07:50 01/07/17 11:35 White Blood Count 8.2 x10^3/uL (4.0-11.0) Red Blood Count 4.44 x10^6/uL (3.50-5.40) Hemoglobin 11.9 g/dL (12.0-15.5) Hematocrit 37.2 % (36.0-47.0) Mean Corpuscular Volume 84 fL (79-100) Mean Corpuscular Hemoglobin 27 pg (25-35) Mean Corpuscular Hemoglobin Concent 32 g/dL (31-37) Red Cell Distribution Width 15.7 % (11.5-14.5) Platelet Count 340 x10^3/uL (140-400) Neutrophils (%) (Auto) 65 % (31-73) Lymphocytes (%) (Auto) 26 % (24-48) Monocytes (%) (Auto) 7 % (0-9) Eosinophils (%) (Auto) 1 % (0-3) Basophils (%) (Auto) 1 % (0-3) Neutrophils # (Auto) 5.3 x10^3uL (1.8-7.7) Lymphocytes # (Auto) 2.1 x10^3/uL (1.0-4.8) Monocytes # (Auto) 0.6 x10^3/uL (0.0-1.1) Eosinophils # (Auto) 0.1 x10^3/uL (0.0-0.7) Basophils # (Auto) 0.1 x10^3/uL (0.0-0.2) Sodium Level 139 mmol/L (136-145) Potassium Level 4.0 mmol/L (3.5-5.1) Chloride Level 100 mmol/L (98-107) Carbon Dioxide Level 37 mmol/L (21-32) Anion Gap 2 (6-14) Blood Urea Nitrogen 13 mg/dL (7-20) Creatinine 1.0 mg/dL (0.6-1.0) Estimated GFR (Cockcroft-Gault) 68.0 Glucose Level 137 mg/dL (70-99) Calcium Level 8.9 mg/dL (8.5-10.1) Troponin I Quantitative 0.023 ng/mL (0.000-0.055) Triglycerides Level 107 mg/dL (0-150) Cholesterol Level 145 mg/dL (0-200) LDL Cholesterol, Calculated 84 mg/dL (0-100) VLDL Cholesterol, Calculated 21 mg/dL (0-40) Non-HDL Cholesterol Calculated 105 mg/dL (0-129) HDL Cholesterol 40 mg/dL (40-60) Cholesterol/HDL Ratio 3.6 Glucose (Fingerstick) 143 mg/dL (70-99) 165 mg/dL (70-99) Review of Systems Review of Systems fatigue and weakness Assessment and Plan Assessmemt and Plan Assessment: Chest pain SOB CABG (2014) Diabetes HTN Obesity BMI=41.3 Plan: MPI in am Recheck labs Order serial cardiac enzymes Continue cardiac monitoring Continue home meds Pending stress test Problems: Comment Review of Relevant I have reviewed the following items nolan (where applicable) has been applied. Labs Laboratory Tests Test 01/06/17 13:20 01/06/17 18:08 01/06/17 20:36 01/06/17 22:45 White Blood Count 7.6 x10^3/uL (4.0-11.0) Red Blood Count 4.72 x10^6/uL (3.50-5.40) Hemoglobin 12.7 g/dL (12.0-15.5) Hematocrit 39.4 % (36.0-47.0) Mean Corpuscular Volume 84 fL (79-100) Mean Corpuscular Hemoglobin 27 pg (25-35) Mean Corpuscular Hemoglobin Concent 32 g/dL (31-37) Red Cell Distribution Width 16.0 % (11.5-14.5) Platelet Count 380 x10^3/uL (140-400) Neutrophils (%) (Auto) 75 % (31-73) Lymphocytes (%) (Auto) 17 % (24-48) Monocytes (%) (Auto) 6 % (0-9) Eosinophils (%) (Auto) 1 % (0-3) Basophils (%) (Auto) 1 % (0-3) Neutrophils # (Auto) 5.7 x10^3uL (1.8-7.7) Lymphocytes # (Auto) 1.3 x10^3/uL (1.0-4.8) Monocytes # (Auto) 0.5 x10^3/uL (0.0-1.1) Eosinophils # (Auto) 0.0 x10^3/uL (0.0-0.7) Basophils # (Auto) 0.0 x10^3/uL (0.0-0.2) D-Dimer (Anila) 0.54 ug/mlFEU (0.00-0.50) Sodium Level 138 mmol/L (136-145) Potassium Level 4.3 mmol/L (3.5-5.1) Chloride Level 99 mmol/L (98-107) Carbon Dioxide Level 34 mmol/L (21-32) Anion Gap 5 (6-14) Blood Urea Nitrogen 10 mg/dL (7-20) Creatinine 0.7 mg/dL (0.6-1.0) Estimated GFR (Cockcroft-Gault) 102.6 BUN/Creatinine Ratio 14 (6-20) Glucose Level 162 mg/dL (70-99) Calcium Level 9.6 mg/dL (8.5-10.1) Total Bilirubin 0.3 mg/dL (0.2-1.0) Aspartate Amino Transf (AST/SGOT) 19 U/L (15-37) Alanine Aminotransferase (ALT/SGPT) 21 U/L (14-59) Alkaline Phosphatase 114 U/L (46-116) Troponin I Quantitative 0.018 ng/mL (0.000-0.055) 0.027 ng/mL (0.000-0.055) Total Protein 7.8 g/dL (6.4-8.2) Albumin 3.4 g/dL (3.4-5.0) Albumin/Globulin Ratio 0.8 (1.0-1.7) Glucose (Fingerstick) 133 mg/dL (70-99) 125 mg/dL (70-99) Test 01/07/17 05:10 01/07/17 07:50 01/07/17 11:35 White Blood Count 8.2 x10^3/uL (4.0-11.0) Red Blood Count 4.44 x10^6/uL (3.50-5.40) Hemoglobin 11.9 g/dL (12.0-15.5) Hematocrit 37.2 % (36.0-47.0) Mean Corpuscular Volume 84 fL (79-100) Mean Corpuscular Hemoglobin 27 pg (25-35) Mean Corpuscular Hemoglobin Concent 32 g/dL (31-37) Red Cell Distribution Width 15.7 % (11.5-14.5) Platelet Count 340 x10^3/uL (140-400) Neutrophils (%) (Auto) 65 % (31-73) Lymphocytes (%) (Auto) 26 % (24-48) Monocytes (%) (Auto) 7 % (0-9) Eosinophils (%) (Auto) 1 % (0-3) Basophils (%) (Auto) 1 % (0-3) Neutrophils # (Auto) 5.3 x10^3uL (1.8-7.7) Lymphocytes # (Auto) 2.1 x10^3/uL (1.0-4.8) Monocytes # (Auto) 0.6 x10^3/uL (0.0-1.1) Eosinophils # (Auto) 0.1 x10^3/uL (0.0-0.7) Basophils # (Auto) 0.1 x10^3/uL (0.0-0.2) Sodium Level 139 mmol/L (136-145) Potassium Level 4.0 mmol/L (3.5-5.1) Chloride Level 100 mmol/L (98-107) Carbon Dioxide Level 37 mmol/L (21-32) Anion Gap 2 (6-14) Blood Urea Nitrogen 13 mg/dL (7-20) Creatinine 1.0 mg/dL (0.6-1.0) Estimated GFR (Cockcroft-Gault) 68.0 Glucose Level 137 mg/dL (70-99) Calcium Level 8.9 mg/dL (8.5-10.1) Troponin I Quantitative 0.023 ng/mL (0.000-0.055) Triglycerides Level 107 mg/dL (0-150) Cholesterol Level 145 mg/dL (0-200) LDL Cholesterol, Calculated 84 mg/dL (0-100) VLDL Cholesterol, Calculated 21 mg/dL (0-40) Non-HDL Cholesterol Calculated 105 mg/dL (0-129) HDL Cholesterol 40 mg/dL (40-60) Cholesterol/HDL Ratio 3.6 Glucose (Fingerstick) 143 mg/dL (70-99) 165 mg/dL (70-99) Laboratory Tests Test 01/06/17 13:20 01/06/17 18:08 01/06/17 20:36 01/06/17 22:45 White Blood Count 7.6 x10^3/uL (4.0-11.0) Red Blood Count 4.72 x10^6/uL (3.50-5.40) Hemoglobin 12.7 g/dL (12.0-15.5) Hematocrit 39.4 % (36.0-47.0) Mean Corpuscular Volume 84 fL (79-100) Mean Corpuscular Hemoglobin 27 pg (25-35) Mean Corpuscular Hemoglobin Concent 32 g/dL (31-37) Red Cell Distribution Width 16.0 % (11.5-14.5) Platelet Count 380 x10^3/uL (140-400) Neutrophils (%) (Auto) 75 % (31-73) Lymphocytes (%) (Auto) 17 % (24-48) Monocytes (%) (Auto) 6 % (0-9) Eosinophils (%) (Auto) 1 % (0-3) Basophils (%) (Auto) 1 % (0-3) Neutrophils # (Auto) 5.7 x10^3uL (1.8-7.7) Lymphocytes # (Auto) 1.3 x10^3/uL (1.0-4.8) Monocytes # (Auto) 0.5 x10^3/uL (0.0-1.1) Eosinophils # (Auto) 0.0 x10^3/uL (0.0-0.7) Basophils # (Auto) 0.0 x10^3/uL (0.0-0.2) D-Dimer (Anila) 0.54 ug/mlFEU (0.00-0.50) Sodium Level 138 mmol/L (136-145) Potassium Level 4.3 mmol/L (3.5-5.1) Chloride Level 99 mmol/L (98-107) Carbon Dioxide Level 34 mmol/L (21-32) Anion Gap 5 (6-14) Blood Urea Nitrogen 10 mg/dL (7-20) Creatinine 0.7 mg/dL (0.6-1.0) Estimated GFR (Cockcroft-Gault) 102.6 BUN/Creatinine Ratio 14 (6-20) Glucose Level 162 mg/dL (70-99) Calcium Level 9.6 mg/dL (8.5-10.1) Total Bilirubin 0.3 mg/dL (0.2-1.0) Aspartate Amino Transf (AST/SGOT) 19 U/L (15-37) Alanine Aminotransferase (ALT/SGPT) 21 U/L (14-59) Alkaline Phosphatase 114 U/L (46-116) Troponin I Quantitative 0.018 ng/mL (0.000-0.055) 0.027 ng/mL (0.000-0.055) Total Protein 7.8 g/dL (6.4-8.2) Albumin 3.4 g/dL (3.4-5.0) Albumin/Globulin Ratio 0.8 (1.0-1.7) Glucose (Fingerstick) 133 mg/dL (70-99) 125 mg/dL (70-99) Test 01/07/17 05:10 01/07/17 07:50 01/07/17 11:35 White Blood Count 8.2 x10^3/uL (4.0-11.0) Red Blood Count 4.44 x10^6/uL (3.50-5.40) Hemoglobin 11.9 g/dL (12.0-15.5) Hematocrit 37.2 % (36.0-47.0) Mean Corpuscular Volume 84 fL (79-100) Mean Corpuscular Hemoglobin 27 pg (25-35) Mean Corpuscular Hemoglobin Concent 32 g/dL (31-37) Red Cell Distribution Width 15.7 % (11.5-14.5) Platelet Count 340 x10^3/uL (140-400) Neutrophils (%) (Auto) 65 % (31-73) Lymphocytes (%) (Auto) 26 % (24-48) Monocytes (%) (Auto) 7 % (0-9) Eosinophils (%) (Auto) 1 % (0-3) Basophils (%) (Auto) 1 % (0-3) Neutrophils # (Auto) 5.3 x10^3uL (1.8-7.7) Lymphocytes # (Auto) 2.1 x10^3/uL (1.0-4.8) Monocytes # (Auto) 0.6 x10^3/uL (0.0-1.1) Eosinophils # (Auto) 0.1 x10^3/uL (0.0-0.7) Basophils # (Auto) 0.1 x10^3/uL (0.0-0.2) Sodium Level 139 mmol/L (136-145) Potassium Level 4.0 mmol/L (3.5-5.1) Chloride Level 100 mmol/L (98-107) Carbon Dioxide Level 37 mmol/L (21-32) Anion Gap 2 (6-14) Blood Urea Nitrogen 13 mg/dL (7-20) Creatinine 1.0 mg/dL (0.6-1.0) Estimated GFR (Cockcroft-Gault) 68.0 Glucose Level 137 mg/dL (70-99) Calcium Level 8.9 mg/dL (8.5-10.1) Troponin I Quantitative 0.023 ng/mL (0.000-0.055) Triglycerides Level 107 mg/dL (0-150) Cholesterol Level 145 mg/dL (0-200) LDL Cholesterol, Calculated 84 mg/dL (0-100) VLDL Cholesterol, Calculated 21 mg/dL (0-40) Non-HDL Cholesterol Calculated 105 mg/dL (0-129) HDL Cholesterol 40 mg/dL (40-60) Cholesterol/HDL Ratio 3.6 Glucose (Fingerstick) 143 mg/dL (70-99) 165 mg/dL (70-99) Medications Current Medications Morphine Sulfate 4 mg 1X ONCE IM ; Start 01/06/17 at 15:00; Stop 01/06/17 at 15:01; Status Cancel Iohexol (Omnipaque 300 Mg/ml) 75 ml 1X ONCE IV Last administered on 14:59; Start 01/06/17 at 15:00; Stop 01/06/17 at 15:01; Status DC Info (Do NOT chart on this entry -- for MONITORING) 1 each PRN DAILY PRN MC SEE COMMENTS; Start 01/06/17 at 15:00; Stop 01/08/17 at 14:59 Morphine Sulfate 4 mg 1X ONCE IV Last administered on 01/06/17 15:08; Start 01/06/17 at 15:00; Stop 01/06/17 at 15:01; Status DC Nitroglycerin (Nitro-Dur 0.1mg) 1 patch DAILY TD Last administered on 11:51; Start 01/06/17 at 18:00 Nitroglycerin (Nitrostat) 0.4 mg PRN Q5MIN PRN SL CHEST PAIN; Start 01/06/17 at 16:30; Stop 01/06/17 at 17:31; Status DC Ondansetron HCl (Zofran) 4 mg PRN Q8HRS PRN IV NAUSEA/VOMITING Last administered on 01/06/17 17:24; Start 01/06/17 at 16:45; Stop 01/07/17 at 16 :44 Morphine Sulfate 4 mg PRN Q2HR PRN IV PAIN Last administered on 01/07/17 08: 07; Start 01/06/17 at 16:45; Stop 01/07/17 at 16:44 Nitroglycerin (Nitrostat) 0.4 mg PRN Q5MIN PRN SL CHEST PAIN; Start 01/06/17 at 16:45; Stop 01/07/17 at 16:44; Status Cancel Aspirin (Ecotrin) 81 mg DAILY PO Last administered on 01/07/17 08:48; Start 01/07/17 at 09:00 Atorvastatin Calcium (Lipitor) 20 mg HS PO Last administered on 01/06/17 21: 33; Start 01/06/17 at 21:00 Clopidogrel Bisulfate (Plavix) 75 mg DAILY PO Last administered on 01/07/17 08:47; Start 01/07/17 at 09:00 Famotidine (Pepcid) 20 mg BID PO Last administered on 01/07/17 08:47; Start 01/06/17 at 21:00 Ferrous Sulfate (Feosol) 325 mg DAILY PO Last administered on 01/07/17 08:47 ; Start 01/07/17 at 09:00 Furosemide (Lasix) 80 mg [id number] PO Last administered on 01/07/17 08:47; Start 01/06/17 at 18:00 Insulin Aspart (NovoLOG) 20 units TIDWMEALS SQ Last administered on 01/07/17 08:53; Start 01/06/17 at 18:00 Insulin Detemir (Levemir) 35 units HS SQ Last administered on 01/06/17 21:37 ; Start 01/06/17 at 21:00 Metoprolol Tartrate (Lopressor) 25 mg BID PO Last administered on 01/07/17 08 :48; Start 01/06/17 at 21:00 Nitroglycerin (Nitrostat) 0.4 mg PRN Q5MIN PRN SL CHEST PAIN; Start 01/06/17 at 17:15 Oxycodone/ Acetaminophen (Percocet 10/325) 1 tab PRN Q4HRS PRN PO PAIN; Start 01/06/17 at 17:15; Stop 01/07/17 at 10:40; Status DC Info (Do NOT chart on this placeholder) 1 each PRN 1X PRN MC SEE COMMENTS; Start 01/06/17 at 18:45; Status UNV Influenza Virus Vaccine Quadrival (Fluarix Quad [id number] Syringe) 0.5 ml ONCE ONCE VAX IM Last administered on 01/07/17 11:53; Start 01/06/17 at 21:00; Stop 01/06/17 at 21:01; Status DC Oxycodone/ Acetaminophen (Percocet 10/325) 2 tab PRN Q4HRS PRN PO PAIN Last administered on 01/07/17 11:49; Start 01/07/17 at 10:45 Active Scripts Active Lasix (Furosemide) 80 Mg Tablet 1 Tab PO BID Reported Ferrous Sulfate 325 Mg Tablet 1 Tab PO DAILY NITROGLYCERIN SubLingual (Nitroglycerin) 0.4 Mg Tab.subl 0.4 Mg SL PRN Q5MIN PRN Metoprolol Tartrate 25 Mg Tablet 1 Tab PO BID Percocet 10-325 Mg Tablet (Oxycodone/Acetaminophen) 1 Each Tablet 2 Tab PO PRN Q6HRS PRN Levemir Flextouch (Insulin Detemir) 100 Unit/1 Ml Insuln.pen 32 Unit SQ BID Novolog Flexpen (Insulin Aspart) 100 Unit/1 Ml Insuln.pen 20 Unit SQ TIDWMEALS Atorvastatin Calcium 20 Mg Tablet 20 Mg PO HS Potassium Chloride 10 Meq Capsule.er 10 Meq PO BID Aspir 81 (Aspirin) 81 Mg Tablet. 1 Tab PO DAILY Clopidogrel (Clopidogrel Bisulfate) 75 Mg Tablet 1 Tab PO DAILY Famotidine 20 Mg Tablet 20 Mg PO BID Percocet 10-325 Mg Tablet (Oxycodone/Acetaminophen) 1 Each Tablet 2 Tab PO Q4- 6HRS PRN Vitals/I & O Vital Sign - Last 24 Hours 01/06/17 01/06/17 01/06/17 01/06/17 13:10 13:54 14:24 14:54 Temp 98.5 98.5 Pulse 81 77 77 80 Resp 20 B/P (MAP) 187/93 (124) 180/88 (118) 189/87 (121) 184/85 (118) Pulse Ox 95 96 95 97 O2 Delivery Room Air Room Air Room Air Room Air 01/06/17 01/06/17 01/06/17 01/06/17 15:06 15:08 15:24 15:54 Pulse 86 82 89 B/P (MAP) 185/84 (117) 179/77 (111) 177/100 (125) Pulse Ox 96 95 O2 Delivery Room Air Room Air Room Air 01/06/17 01/06/17 01/06/17 01/06/17 16:24 16:54 17:29 18:25 Temp 97.9 97.9 Pulse 83 94 117 Resp 16 B/P (MAP) 227/105 (145) 204/95 (131) 185/94 (124) 115/91 (99) Pulse Ox 96 94 92 O2 Delivery Room Air Room Air Room Air 01/06/17 01/06/17 01/06/17 01/06/17 18:58 19:15 19:59 20:00 Temp 98.7 98.7 Pulse 94 Resp 20 B/P (MAP) 139/62 (87) Pulse Ox 92 O2 Delivery Room Air Room Air Room Air Room Air 01/06/17 01/06/17 01/06/17 01/06/17 21:34 22:52 22:55 23:05 Temp 98.7 98.7 Pulse 104 70 Resp 20 B/P (MAP) 139/62 125/58 (80) Pulse Ox 92 87 96 O2 Delivery Room Air Room Air Nasal Cannula O2 Flow Rate 3.0 01/07/17 01/07/17 01/07/17 01/07/17 02:04 03:00 03:10 05:27 Temp 98.2 98.2 Pulse 67 Resp 18 B/P (MAP) 128/59 (82) Pulse Ox 96 97 97 97 O2 Delivery Nasal Cannula Nasal Cannula Nasal Cannula O2 Flow Rate 3.0 3.0 3.0 3.0 01/07/17 01/07/17 01/07/17 01/07/17 07:48 08:00 08:07 08:37 Temp 98.8 98.8 Pulse 62 Resp 18 16 16 B/P (MAP) 138/58 (84) Pulse Ox 96 O2 Delivery Nasal Cannula Room Air Room Air Room Air O2 Flow Rate 3.0 01/07/17 01/07/17 01/07/17 08:48 10:42 11:49 Temp 98.2 98.2 Pulse 84 62 Resp 19 16 B/P (MAP) 138/58 103/50 (67) Pulse Ox 93 O2 Delivery Nasal Cannula Nasal Cannula O2 Flow Rate 3.0 3.0 Intake and Output 01/07/17 01/07/17 01/08/17 15:00 23:00 07:00 Output Total 350 ml Balance -350 ml PERICO BUCHANAN III DO Jan 07, 2017 12:13
[2017-01-07 14:25] VITALS: BP 100/40
[2017-01-07 19:30] VITALS: BP 113/54
[2017-01-07] MEDS: ATORVASTATIN CALCIUM 20 MG TABLET PO SCH (20:58)
[2017-01-07] MEDS: INSULIN DETEMIR 300 UNITS/3 ML INSULN.PEN. SQ SCH (21:02)
[2017-01-07 22:50] VITALS: BP 109/46
[2017-01-08] VITALS (7 sets, daily range): BP systolic 112–152; BP diastolic 37–82
[2017-01-08] MEDS: oxyCODONE/APAP 10/325 1 TAB TABLET PO PRN ×5 (01:19→23:35)
[2017-01-08 03:58] LABS: BASO # 0.1 x10^3/uL (0.0-0.2); BASO % 1 % (0-3); EOS % 1 % (0-3); HEMATOCRIT 37.1 % (36.0-47.0); HEMOGLOBIN 11.8 g/dL (12.0-15.5); LYMPH # 2.3 x10^3/uL (1.0-4.8); LYMPH % 29 % (24-48); MEAN CORPUSCULAR HEMOGLOBIN 27 pg (25-35); MEAN CORPUSCULAR HGB CONC 32 g/dL (31-37); MEAN CORPUSCULAR VOLUME 84 fL (79-100); MONO % 7 % (0-9); NEUT % 62 % (31-73); PLATELET COUNT 338 x10^3/uL (140-400); RED BLOOD COUNT 4.41 x10^6/uL (3.50-5.40); RED CELL DISTRIBUTION WIDTH 15.6 % (11.5-14.5); WHITE BLOOD COUNT 8.2 x10^3/uL (4.0-11.0)
[2017-01-08 04:19] LABS: CALCIUM 8.9 mg/dL (8.5-10.1); CREATININE 1.1 mg/dL (0.6-1.0); GFR 60.9; POTASSIUM 4.1 mmol/L (3.5-5.1)
--- NOTE | 2017-01-08 04:51 | CONS ---
DATE OF CONSULTATION: HISTORY OF PRESENT ILLNESS: This is a 61-year-old black female who I had seen in October and November of this year when she came in with chest pain. The pain at that time was suggestive of angina. She underwent myocardial perfusion imaging study, which was abnormal. She then underwent coronary arteriograms. The coronary arteriograms showed that the GARCIA to the LAD was patent. The vein graft to the circumflex coronary artery was patent. The right coronary artery was normal. The left ventricle showed aneurysm occupying the anterior wall and lateral wall. An echocardiogram was performed, but it was very difficult and a good view could not be obtained. She gives a history of being in congestive heart failure. However, the echocardiogram showed that the EF because of the rest of the myocardium was pumping normally was normal. She seemed to have responded to diuretics. She was discharged. Since then, I have seen her in the office. She had one more admission with chest discomfort, but because of all the investigations that she had recently had, no further investigations are carried out. Of interest is to note that she had severe hypertension both on her admission recently and this admission. At this time, she says that she had been having more and more shortness of breath. She had been to the ____. She then started to have pain in her chest. The pain is across the chest. It is somewhat similar to the pain that she had had when she came in with an acute ST elevation myocardial infarction in 2014. The pain also did have a pleuritic component to it. She then came into the Emergency Room. In the Emergency Room, there was no ST segment elevation. The cardiac enzymes were negative. Her blood pressure since then has come down. She does give a history of COPD. She has been following with her census enumerator. She uses oxygen all the time. She has had no swelling of her legs. She has diabetes mellitus and is on insulin. She does have oxycodone at home and this seems to relieve the pain when she gets it. She has also tried nitroglycerin. She does not smoke or take alcohol at the present time. PRESENT MEDICATIONS: 1. Aspirin 81 mg a day. 2. Atorvastatin 20 mg a day. 3. Plavix 75 mg a day. 4. Famotidine 20 mg twice a day. 5. Ferrous sulfate. 6. Furosemide 80 mg twice a day. 7. NovoLog 20 units before each meal. 8. Levemir 32 units twice a day. 9. Toprol-XL 25 mg a day. 10. Oxycodone 11. Potassium chloride 10 mEq twice a day. On examination, she complained of shortness of breath while lying at 45 degrees. She has oxygen on. PHYSICAL EXAMINATION: VITAL SIGNS: The heart rate was 60 per minute and regular. The blood pressure now has come down to 110/54. She was saturating at 98% on 3 liters of oxygen. LUNGS: Clear. HEART: The heart sounds are normal with no murmur or gallop. EXTREMITIES: There is no edema of the legs. LABORATORY DATA: An EKG showed a right bundle-branch block. A chest x-ray showed clear lung tripp. The hemoglobin was 11.9 grams percent. The lipid levels are acceptable with LDL cholesterol of 84 and HDL cholesterol of 40. BUN was 13 and the creatinine was 1. The troponin was normal. IMPRESSION: 1. Severe chronic obstructive pulmonary disease, oxygen dependent. 2. Shortness of breath with exertion, probably related to the chronic obstructive pulmonary disease, but need to rule out pulmonary vascular congestion. 3. Hypertension and diabetes mellitus. 4. Dyslipidemia. 5. 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 This patient has come in several times with chest pain. Myocardial ischemia has been ruled out with no EKG changes and normal serial enzymes. However, she does have a left ventricular aneurysm, which thus far has been poorly defined. It is unusual for the aneurysm to cause chest pain. Of significance is the fact that when she did come in with chest pain the last 2 times, she was in such distress that she had severe hypertensive response with a systolic blood pressure being in the 190-200 mmHg. I would like to better define this left ventricular aneurysm, specifically to see ____. So far, we have not been able to be absolutely sure. I would thus like to do a SUSAN to better define this aneurysm. Also, viability study will be done to see how much of her myocardium is viable and how much is not. She tends to have some fluid retention. Since her renal functions are normal and since her blood pressure is normal, we could continue to vigorously diurese as suggested by her previous physicians. I would like to have the input of the census enumerator regarding her shortness of breath with exertion, which seemed to be the initiating factor before she started to have the chest pain. Thank you very much for asking me to see her. NYDIA JEREZ MD DR: HUGH/amrik JOB#: [id number] / [id number]
[2017-01-08] MEDS: FUROSEMIDE 80 MG TABLET. PO SCH ×2 (06:35→18:18)
[2017-01-08] MEDS ORDERED: HYDROmorphone 2 MG/ML VIAL IV PRN (07:00)
[2017-01-08] MEDS ORDERED: IV RINGERS,LACTATED 1000ML 1,000 ML IV SCH (07:00)
[2017-01-08] MEDS ORDERED: ONDANSETRON PF 4 MG/2 ML VIAL. IV PRN ×2 (07:00→18:00)
[2017-01-08] MEDS ORDERED: fentaNYL PF VIAL 100 MCG/2 ML VIAL IV PRN ×2 (07:00)
[2017-01-08] MEDS ORDERED: LIDOCAINE 1% PF 2 ML VIAL. ID PRN (07:00)
[2017-01-08] MEDS ORDERED: MORPHINE SULFATE 2 MG/ML DISP.SYRIN. IV PRN (07:00)
[2017-01-08] MEDS ORDERED: PROCHLORPERAZINE 10 MG/2 ML VIAL. IV PRN (07:00)
[2017-01-08] MEDS: INSULIN ASPART 300 UNITS/3 ML INSULN.PEN SQ SCH ×3 (08:00→18:20)
[2017-01-08] MEDS ORDERED: LIDOCAINE 2% PF Vial for OR 5 ML VIAL. ONE (11:35)
[2017-01-08] MEDS ORDERED: PROPOFOL 20 ML IV ONE (11:35)
[2017-01-08] MEDS ORDERED: LIDOCAINE 2% VISCOUS 15 ML SOLUTION. ONE (11:39)
[2017-01-08] MEDS ORDERED: BENZOCAINE ONE 20% MUCOSAL SPRAY. (11:39)
[2017-01-08] MEDS ORDERED: LIDOCAINE 2% TOPICAL JELLY 30GM TUBE. TP ONE ×2 (11:40)
--- NOTE | 2017-01-08 13:36 | PDOC ---
PROGRESS NOTES Chief Complaint Chief Complaint Chest pain SOB CABG (2014) Diabetes HTN Obesity BMI=41.3 History of Present Illness History of Present Illness A 61 year old lady presents with a chest pain. Today she was examined at bedside. She is alert, oriented and is able to carry a conversation. Appears to be doing better and does not complain of chest pain anymore, however, will continue to monitor. MPI in progress. Vitals Vitals Vital Signs Date Time Temp Pulse Resp B/P (MAP) Pulse Ox O2 Delivery O2 Flow Rate FiO2 01/08/17 12:41 97.9 99 20 110/46 95 Nasal Cannula 3 97.9 Simple Mask Physical Exam General: Alert, Oriented X3, Cooperative, No acute distress Heart: Regular rate, Normal S1, Normal S2 Lungs: Clear Abdomen: Normal bowel sounds, Soft Extremities: No clubbing, No cyanosis, No edema Skin: No rashes, No significant lesion Labs LABS Laboratory Tests Test 01/07/17 17:12 01/07/17 20:54 01/08/17 03:19 01/08/17 08:01 Glucose (Fingerstick) 89 mg/dL (70-99) 119 mg/dL (70-99) 138 mg/dL (70-99) White Blood Count 8.2 x10^3/uL (4.0-11.0) Red Blood Count 4.41 x10^6/uL (3.50-5.40) Hemoglobin 11.8 g/dL (12.0-15.5) Hematocrit 37.1 % (36.0-47.0) Mean Corpuscular Volume 84 fL (79-100) Mean Corpuscular Hemoglobin 27 pg (25-35) Mean Corpuscular Hemoglobin Concent 32 g/dL (31-37) Red Cell Distribution Width 15.6 % (11.5-14.5) Platelet Count 338 x10^3/uL (140-400) Neutrophils (%) (Auto) 62 % (31-73) Lymphocytes (%) (Auto) 29 % (24-48) Monocytes (%) (Auto) 7 % (0-9) Eosinophils (%) (Auto) 1 % (0-3) Basophils (%) (Auto) 1 % (0-3) Neutrophils # (Auto) 5.0 x10^3uL (1.8-7.7) Lymphocytes # (Auto) 2.3 x10^3/uL (1.0-4.8) Monocytes # (Auto) 0.6 x10^3/uL (0.0-1.1) Eosinophils # (Auto) 0.1 x10^3/uL (0.0-0.7) Basophils # (Auto) 0.1 x10^3/uL (0.0-0.2) Sodium Level 140 mmol/L (136-145) Potassium Level 4.1 mmol/L (3.5-5.1) Chloride Level 99 mmol/L (98-107) Carbon Dioxide Level 38 mmol/L (21-32) Anion Gap 3 (6-14) Blood Urea Nitrogen 22 mg/dL (7-20) Creatinine 1.1 mg/dL (0.6-1.0) Estimated GFR (Cockcroft-Gault) 60.9 Glucose Level 129 mg/dL (70-99) Calcium Level 8.9 mg/dL (8.5-10.1) Review of Systems Review of Systems fatigue and weakness Assessment and Plan Assessmemt and Plan Assessment: Chest pain SOB CABG (2014) Diabetes HTN Obesity BMI=41.3 COPD Plan: MPI in progress Recheck labs PT/OT Continue cardiac monitoring Continue meds Agree with cardiology workup Problems: Comment Review of Relevant I have reviewed the following items nolan (where applicable) has been applied. Labs Laboratory Tests Test 01/06/17 18:08 01/06/17 20:36 01/06/17 22:45 01/07/17 05:10 Glucose (Fingerstick) 133 mg/dL (70-99) 125 mg/dL (70-99) Troponin I Quantitative 0.027 ng/mL (0.000-0.055) 0.023 ng/mL (0.000-0.055) White Blood Count 8.2 x10^3/uL (4.0-11.0) Red Blood Count 4.44 x10^6/uL (3.50-5.40) Hemoglobin 11.9 g/dL (12.0-15.5) Hematocrit 37.2 % (36.0-47.0) Mean Corpuscular Volume 84 fL (79-100) Mean Corpuscular Hemoglobin 27 pg (25-35) Mean Corpuscular Hemoglobin Concent 32 g/dL (31-37) Red Cell Distribution Width 15.7 % (11.5-14.5) Platelet Count 340 x10^3/uL (140-400) Neutrophils (%) (Auto) 65 % (31-73) Lymphocytes (%) (Auto) 26 % (24-48) Monocytes (%) (Auto) 7 % (0-9) Eosinophils (%) (Auto) 1 % (0-3) Basophils (%) (Auto) 1 % (0-3) Neutrophils # (Auto) 5.3 x10^3uL (1.8-7.7) Lymphocytes # (Auto) 2.1 x10^3/uL (1.0-4.8) Monocytes # (Auto) 0.6 x10^3/uL (0.0-1.1) Eosinophils # (Auto) 0.1 x10^3/uL (0.0-0.7) Basophils # (Auto) 0.1 x10^3/uL (0.0-0.2) Sodium Level 139 mmol/L (136-145) Potassium Level 4.0 mmol/L (3.5-5.1) Chloride Level 100 mmol/L (98-107) Carbon Dioxide Level 37 mmol/L (21-32) Anion Gap 2 (6-14) Blood Urea Nitrogen 13 mg/dL (7-20) Creatinine 1.0 mg/dL (0.6-1.0) Estimated GFR (Cockcroft-Gault) 68.0 Glucose Level 137 mg/dL (70-99) Hemoglobin A1c 7.0 % (4.8-5.6) Calcium Level 8.9 mg/dL (8.5-10.1) Triglycerides Level 107 mg/dL (0-150) Cholesterol Level 145 mg/dL (0-200) LDL Cholesterol, Calculated 84 mg/dL (0-100) VLDL Cholesterol, Calculated 21 mg/dL (0-40) Non-HDL Cholesterol Calculated 105 mg/dL (0-129) HDL Cholesterol 40 mg/dL (40-60) Cholesterol/HDL Ratio 3.6 Test 01/07/17 07:50 01/07/17 11:35 01/07/17 17:12 01/07/17 20:54 Glucose (Fingerstick) 143 mg/dL (70-99) 165 mg/dL (70-99) 89 mg/dL (70-99) 119 mg/dL (70-99) Test 01/08/17 03:19 01/08/17 08:01 White Blood Count 8.2 x10^3/uL (4.0-11.0) Red Blood Count 4.41 x10^6/uL (3.50-5.40) Hemoglobin 11.8 g/dL (12.0-15.5) Hematocrit 37.1 % (36.0-47.0) Mean Corpuscular Volume 84 fL (79-100) Mean Corpuscular Hemoglobin 27 pg (25-35) Mean Corpuscular Hemoglobin Concent 32 g/dL (31-37) Red Cell Distribution Width 15.6 % (11.5-14.5) Platelet Count 338 x10^3/uL (140-400) Neutrophils (%) (Auto) 62 % (31-73) Lymphocytes (%) (Auto) 29 % (24-48) Monocytes (%) (Auto) 7 % (0-9) Eosinophils (%) (Auto) 1 % (0-3) Basophils (%) (Auto) 1 % (0-3) Neutrophils # (Auto) 5.0 x10^3uL (1.8-7.7) Lymphocytes # (Auto) 2.3 x10^3/uL (1.0-4.8) Monocytes # (Auto) 0.6 x10^3/uL (0.0-1.1) Eosinophils # (Auto) 0.1 x10^3/uL (0.0-0.7) Basophils # (Auto) 0.1 x10^3/uL (0.0-0.2) Sodium Level 140 mmol/L (136-145) Potassium Level 4.1 mmol/L (3.5-5.1) Chloride Level 99 mmol/L (98-107) Carbon Dioxide Level 38 mmol/L (21-32) Anion Gap 3 (6-14) Blood Urea Nitrogen 22 mg/dL (7-20) Creatinine 1.1 mg/dL (0.6-1.0) Estimated GFR (Cockcroft-Gault) 60.9 Glucose Level 129 mg/dL (70-99) Calcium Level 8.9 mg/dL (8.5-10.1) Glucose (Fingerstick) 138 mg/dL (70-99) Laboratory Tests Test 01/07/17 17:12 01/07/17 20:54 01/08/17 03:19 01/08/17 08:01 Glucose (Fingerstick) 89 mg/dL (70-99) 119 mg/dL (70-99) 138 mg/dL (70-99) White Blood Count 8.2 x10^3/uL (4.0-11.0) Red Blood Count 4.41 x10^6/uL (3.50-5.40) Hemoglobin 11.8 g/dL (12.0-15.5) Hematocrit 37.1 % (36.0-47.0) Mean Corpuscular Volume 84 fL (79-100) Mean Corpuscular Hemoglobin 27 pg (25-35) Mean Corpuscular Hemoglobin Concent 32 g/dL (31-37) Red Cell Distribution Width 15.6 % (11.5-14.5) Platelet Count 338 x10^3/uL (140-400) Neutrophils (%) (Auto) 62 % (31-73) Lymphocytes (%) (Auto) 29 % (24-48) Monocytes (%) (Auto) 7 % (0-9) Eosinophils (%) (Auto) 1 % (0-3) Basophils (%) (Auto) 1 % (0-3) Neutrophils # (Auto) 5.0 x10^3uL (1.8-7.7) Lymphocytes # (Auto) 2.3 x10^3/uL (1.0-4.8) Monocytes # (Auto) 0.6 x10^3/uL (0.0-1.1) Eosinophils # (Auto) 0.1 x10^3/uL (0.0-0.7) Basophils # (Auto) 0.1 x10^3/uL (0.0-0.2) Sodium Level 140 mmol/L (136-145) Potassium Level 4.1 mmol/L (3.5-5.1) Chloride Level 99 mmol/L (98-107) Carbon Dioxide Level 38 mmol/L (21-32) Anion Gap 3 (6-14) Blood Urea Nitrogen 22 mg/dL (7-20) Creatinine 1.1 mg/dL (0.6-1.0) Estimated GFR (Cockcroft-Gault) 60.9 Glucose Level 129 mg/dL (70-99) Calcium Level 8.9 mg/dL (8.5-10.1) Medications Current Medications Morphine Sulfate 4 mg 1X ONCE IM ; Start 01/06/17 at 15:00; Stop 01/06/17 at 15:01; Status Cancel Iohexol (Omnipaque 300 Mg/ml) 75 ml 1X ONCE IV Last administered on 14:59; Start 01/06/17 at 15:00; Stop 01/06/17 at 15:01; Status DC Info (Do NOT chart on this entry -- for MONITORING) 1 each PRN DAILY PRN MC SEE COMMENTS; Start 01/06/17 at 15:00; Stop 01/08/17 at 14:59 Morphine Sulfate 4 mg 1X ONCE IV Last administered on 01/06/17 15:08; Start 01/06/17 at 15:00; Stop 01/06/17 at 15:01; Status DC Nitroglycerin (Nitro-Dur 0.1mg) 1 patch DAILY TD Last administered on 11:51; Start 01/06/17 at 18:00 Nitroglycerin (Nitrostat) 0.4 mg PRN Q5MIN PRN SL CHEST PAIN; Start 01/06/17 at 16:30; Stop 01/06/17 at 17:31; Status DC Ondansetron HCl (Zofran) 4 mg PRN Q8HRS PRN IV NAUSEA/VOMITING Last administered on 01/06/17 17:24; Start 01/06/17 at 16:45; Stop 01/07/17 at 16 :44; Status DC Morphine Sulfate 4 mg PRN Q2HR PRN IV PAIN Last administered on 01/07/17 08: 07; Start 01/06/17 at 16:45; Stop 01/07/17 at 16:44; Status DC Nitroglycerin (Nitrostat) 0.4 mg PRN Q5MIN PRN SL CHEST PAIN; Start 01/06/17 at 16:45; Stop 01/07/17 at 16:44; Status Cancel Aspirin (Ecotrin) 81 mg DAILY PO Last administered on 01/07/17 08:48; Start 01/07/17 at 09:00 Atorvastatin Calcium (Lipitor) 20 mg HS PO Last administered on 01/07/17 20: 58; Start 01/06/17 at 21:00 Clopidogrel Bisulfate (Plavix) 75 mg DAILY PO Last administered on 01/07/17 08:47; Start 01/07/17 at 09:00 Famotidine (Pepcid) 20 mg BID PO Last administered on 01/07/17 20:59; Start 01/06/17 at 21:00 Ferrous Sulfate (Feosol) 325 mg DAILY PO Last administered on 01/07/17 08:47 ; Start 01/07/17 at 09:00 Furosemide (Lasix) 80 mg [id number] PO Last administered on 01/08/17 06:35; Start 01/06/17 at 18:00 Insulin Aspart (NovoLOG) 20 units TIDWMEALS SQ Last administered on 01/07/17 17:34; Start 01/06/17 at 18:00 Insulin Detemir (Levemir) 35 units HS SQ Last administered on 01/07/17 21:02 ; Start 01/06/17 at 21:00 Metoprolol Tartrate (Lopressor) 25 mg BID PO Last administered on 01/07/17 20 :59; Start 01/06/17 at 21:00 Nitroglycerin (Nitrostat) 0.4 mg PRN Q5MIN PRN SL CHEST PAIN; Start 01/06/17 at 17:15 Oxycodone/ Acetaminophen (Percocet 10/325) 1 tab PRN Q4HRS PRN PO PAIN; Start 01/06/17 at 17:15; Stop 01/07/17 at 10:40; Status DC Info (Do NOT chart on this placeholder) 1 each PRN 1X PRN MC SEE COMMENTS; Start 01/06/17 at 18:45; Status UNV Influenza Virus Vaccine Quadrival (Fluarix Quad [id number] Syringe) 0.5 ml ONCE ONCE VAX IM Last administered on 01/07/17 11:53; Start 01/06/17 at 21:00; Stop 01/06/17 at 21:01; Status DC Oxycodone/ Acetaminophen (Percocet 10/325) 2 tab PRN Q4HRS PRN PO PAIN Last administered on 01/08/17 07:49; Start 10/17/17 at 10:45 Ondansetron HCl (Zofran) 4 mg PRN Q6HRS PRN IV NAUSEA/VOMITING; Start at 07:00; Stop 01/09/17 at 06:59 Fentanyl Citrate (Fentanyl 2ml Vial) 25 mcg PRN Q5MIN PRN IV MILD PAIN; Start 01/08/17 at 07:00; Stop 01/09/17 at 06:59 Fentanyl Citrate (Fentanyl 2ml Vial) 50 mcg PRN Q5MIN PRN IV MODERATE PAIN; Start 01/08/17 at 07:00; Stop 01/09/17 at 06:59 Morphine Sulfate 1 mg PRN Q10MIN PRN IV SEVERE PAIN; Start 01/08/17 at 07:00; Stop 01/09/17 at 06:59 Ringer's Solution 1,000 ml @ 30 mls/hr Q24H IV ; Start 01/08/17 at 07:00; Stop 01/08/17 at 18:59 Lidocaine HCl (Xylocaine-Mpf 1% Vial) 2 ml PRN 1X PRN ID PRIOR TO IV START; Start 01/08/17 at 07:00; Stop 01/09/17 at 06:59 Hydromorphone HCl (Dilaudid) 0.5 mg PRN Q10MIN PRN IV SEV PAIN, Second choice; Start 01/08/17 at 07:00; Stop 01/09/17 at 06:59 Prochlorperazine Edisylate (Compazine) 5 mg PACU PRN PRN IV NAUSEA, MRX1; Start 01/08/17 at 07:00; Stop 01/09/17 at 06:59 Propofol 20 ml @ As Directed STK-MED ONCE IV ; Start 01/08/17 at 11:35; Stop 01/08/17 at 11:36; Status DC Lidocaine HCl (Lidocaine Pf 2% Vial) 5 ml STK-MED ONCE .ROUTE ; Start 01/08/17 at 11:35; Stop 01/08/17 at 11:36; Status DC Lidocaine HCl (Viscous Lidocaine) 15 ml STK-MED ONCE .ROUTE ; Start 01/08/17 at 11:39; Stop 01/08/17 at 11:40; Status DC Benzocaine (Hurricaine One) 1 spray STK-MED ONCE .ROUTE ; Start 01/08/17 at 11: 39; Stop 01/08/17 at 11:40; Status DC Lidocaine HCl (Xylocaine 2% Topical 30gm Tube) 30 tre STK-MED ONCE TP ; Start 01/08/17 at 11:40; Stop 01/08/17 at 11:41; Status DC Lidocaine HCl (Xylocaine 2% Topical 30gm Tube) 30 tre STK-MED ONCE TP ; Start 01/08/17 at 11:40; Stop 01/08/17 at 11:41; Status DC Active Scripts Active Lasix (Furosemide) 80 Mg Tablet 1 Tab PO BID Reported Ferrous Sulfate 325 Mg Tablet 1 Tab PO DAILY NITROGLYCERIN SubLingual (Nitroglycerin) 0.4 Mg Tab.subl 0.4 Mg SL PRN Q5MIN PRN Metoprolol Tartrate 25 Mg Tablet 1 Tab PO BID Percocet 10-325 Mg Tablet (Oxycodone/Acetaminophen) 1 Each Tablet 2 Tab PO PRN Q6HRS PRN Levemir Flextouch (Insulin Detemir) 100 Unit/1 Ml Insuln.pen 32 Unit SQ BID Novolog Flexpen (Insulin Aspart) 100 Unit/1 Ml Insuln.pen 20 Unit SQ TIDWMEALS Atorvastatin Calcium 20 Mg Tablet 20 Mg PO HS Potassium Chloride 10 Meq Capsule.er 10 Meq PO BID Aspir 81 (Aspirin) 81 Mg Tablet.dr 1 Tab PO DAILY Clopidogrel (Clopidogrel Bisulfate) 75 Mg Tablet 1 Tab PO DAILY Famotidine 20 Mg Tablet 20 Mg PO BID Percocet 10-325 Mg Tablet (Oxycodone/Acetaminophen) 1 Each Tablet 2 Tab PO Q4- 6HRS PRN Vitals/I & O Vital Sign - Last 24 Hours 01/07/17 01/07/17 01/07/17 01/07/17 14:25 16:39 17:39 19:30 Temp 98.0 97.8 98.0 97.8 Pulse 56 60 Resp 20 16 16 18 B/P (MAP) 100/40 (60) 113/54 (73) Pulse Ox 95 98 O2 Delivery Nasal Cannula Nasal Cannula Nasal Cannula O2 Flow Rate 3.0 3.0 3.0 3.0 01/07/17 01/07/17 01/07/17 01/07/17 20:00 20:59 20:59 22:50 Temp 98.9 98.9 Pulse 60 53 Resp 18 B/P (MAP) 113/54 109/46 (67) Pulse Ox 98 97 O2 Delivery Room Air Room Air Nasal Cannula O2 Flow Rate 3.0 01/08/17 01/08/17 01/08/17 01/08/17 01:19 02:19 02:55 07:00 Temp 98.5 98.5 98.5 98.5 Pulse 56 58 Resp 20 B/P (MAP) 112/69 (83) 120/72 (88) Pulse Ox 97 97 97 O2 Delivery Room Air Room Air Nasal Cannula Room Air O2 Flow Rate 3.0 01/08/17 01/08/17 01/08/17 01/08/17 07:49 08:00 11:00 11:49 Temp 99.0 97.9 99.0 97.9 Pulse 86 98 Resp 18 20 20 B/P (MAP) 138/60 (86) 154/63 Pulse Ox 96 99 98 O2 Delivery Room Air Room Air Room Air Room Air O2 Flow Rate 3.0 01/08/17 01/08/17 01/08/17 01/08/17 12:07 12:10 12:18 12:28 Temp 97.9 97.9 97.9 97.9 97.9 97.9 Pulse 98 100 99 Resp 20 20 20 B/P (MAP) 109/39 150/62 130/33 Pulse Ox 99 100 95 O2 Delivery Simple Mask Mask Simple Mask Nasal Cannula Simple Mask O2 Flow Rate 12 12 12 3 01/08/17 12:41 Temp 97.9 97.9 Pulse 99 Resp 20 B/P (MAP) 110/46 Pulse Ox 95 O2 Delivery Nasal Cannula Simple Mask O2 Flow Rate 3 Intake and Output 01/08/17 01/08/17 01/09/17 15:00 23:00 07:00 Intake Total 200 ml Output Total 700 ml Balance -500 ml PERICO BUCHANAN K III DO Jan 08, 2017 13:36
[2017-01-08] MEDS: CLOPIDOGREL BISULFATE 75 MG TABLET PO SCH (13:58)
[2017-01-08] MEDS: FAMOTIDINE 20 MG TABLET. PO SCH ×2 (13:59→21:19)
[2017-01-08] MEDS: ASPIRIN ENTERIC COATED 81 MG TABLET.DR. PO SCH (13:59)
[2017-01-08] MEDS: FERROUS SULFATE 325 MG TABLET. PO SCH (14:00)
[2017-01-08] MEDS: NITROGLYCERIN 0.1MG/HR PATCH. TD SCH (14:17)
[2017-01-08] MEDS: METOPROLOL TART IMMED RELEASE 25 MG TABLET. PO SCH ×2 (14:18→21:20)
--- NOTE | 2017-01-08 18:03 | CARD ---
APPROVED REPORT EXAM: Transesophageal echocardiogram with color flow Doppler. INDICATION Abnormal ECG Dyspnea Cardiac Disease: CAD Chest Pain PROCEDURE After obtaining informed consent, patient underwent transesophageal echo in the PACU. Type of Sedation : General Anesthesia Sedation was provided by anesthesiologist, see EMR for medications administered. Transesophageal probe was inserted and advanced into esophagus by Oswaldo Arias MD. The SUSAN was performed without complications. Throughout the procedure, the blood pressure, pulse oximetry, cardiac rhythm, and rate were monitored . The patient tolerated the procedure without adverse effects. Recovery from conscious sedation was une ventful and vital signs were stable. LEFT VENTRICLE The left ventricle is normal size. There is some mild apical dilatation. There appears to be mild con centric left ventricular hypertrophy. Left ventricle systolic function is normal. The Ejection Fracti on is 50%. There is normal LV segmental wall motion. RIGHT VENTRICLE The right ventricle is normal size. The right ventricular systolic function is normal. ATRIA The left atrium appears normal in size. The right atrium appears normal in size. The interatrial sept um is intact with no evidence for an atrial septal defect or patent foramen ovale as noted on 2-D or Doppler imaging. There is no thrombus noted in the left atrial appendage. AORTIC VALVE The aortic valve is normal in structure and function. The aortic valve is trileaflet. Doppler and Col or Flow revealed no significant aortic regurgitation. MITRAL VALVE The mitral valve is normal in structure. Doppler and Color Flow revealed mild mitral regurgitation. TRICUSPID VALVE The tricuspid valve is normal in structure. Doppler and Color Flow revealed mild tricuspid regurgitat ion. PULMONIC VALVE The pulmonary valve is normal in structure and function. Doppler and Color Flow revealed no pulmonic valvular regurgitation. GREAT VESSELS The aortic root is normal in size. The ascending aorta is normal in size. There is calcifications of the ascending aorta Normal pulmonary venous flow (Doppler). The IVC was visualized and appears normal in size. PERICARDIAL EFFUSION There is no pleural effusion. Critical Notification Critical Value: No <Conclusion> The left ventricle is normal size. There is some mild apical dilatation. There appears to be mild concentric left ventricular hypertrophy. Left ventricle systolic function is normal. The Ejection Fraction is 50%. The left atrium appears normal in size. The right atrium appears normal in size. The aortic valve is normal in structure and function. The aortic valve is trileaflet. Doppler and Color Flow revealed mild mitral regurgitation. Doppler and Color Flow revealed mild tricuspid regurgitation. The pulmonary valve is normal in structure and function. The ascending aorta is normal in size. There is calcifications of the ascending aorta
[2017-01-08] MEDS: ATORVASTATIN CALCIUM 20 MG TABLET PO SCH (21:19)
[2017-01-08] MEDS: INSULIN DETEMIR 300 UNITS/3 ML INSULN.PEN. SQ SCH (21:24)
[2017-01-09 03:30] VITALS: BP 138/59
[2017-01-09 04:51] LABS: BASO % 0 % (0-3); EOS % 1 % (0-3); HEMATOCRIT 34.9 % (36.0-47.0); HEMOGLOBIN 11.2 g/dL (12.0-15.5); LYMPH # 1.5 x10^3/uL (1.0-4.8); LYMPH % 19 % (24-48); MEAN CORPUSCULAR HEMOGLOBIN 27 pg (25-35); MEAN CORPUSCULAR HGB CONC 32 g/dL (31-37); MEAN CORPUSCULAR VOLUME 84 fL (79-100); MONO % 8 % (0-9); NEUT % 72 % (31-73); PLATELET COUNT 293 x10^3/uL (140-400); RED BLOOD COUNT 4.18 x10^6/uL (3.50-5.40); RED CELL DISTRIBUTION WIDTH 15.7 % (11.5-14.5); WHITE BLOOD COUNT 7.7 x10^3/uL (4.0-11.0)
[2017-01-09 05:15] LABS: CALCIUM 8.6 mg/dL (8.5-10.1); POTASSIUM 3.7 mmol/L (3.5-5.1)
[2017-01-09] MEDS: oxyCODONE/APAP 10/325 1 TAB TABLET PO PRN ×3 (06:42→16:14)
[2017-01-09] MEDS: FUROSEMIDE 80 MG TABLET. PO SCH (06:43)
[2017-01-09 07:00] VITALS: BP 132/39
[2017-01-09] MEDS: INSULIN ASPART 300 UNITS/3 ML INSULN.PEN SQ SCH ×3 (08:00→16:42)
--- NOTE | 2017-01-09 10:18 | PDOC ---
Provider Note Provider Note No further episodes of severe chest pain.BP stable. 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 Consider MRI as an outpatient OK with me to be discharged today, Follow up with me in the office. NYDIA JEREZ MD Jan 09, 2017 10:18
[2017-01-09] MEDS: FERROUS SULFATE 325 MG TABLET. PO SCH (10:21)
[2017-01-09] MEDS: ASPIRIN ENTERIC COATED 81 MG TABLET.DR. PO SCH (10:21)
[2017-01-09] MEDS: FAMOTIDINE 20 MG TABLET. PO SCH (10:21)
[2017-01-09] MEDS: CLOPIDOGREL BISULFATE 75 MG TABLET PO SCH (10:21)
[2017-01-09] MEDS: METOPROLOL TART IMMED RELEASE 25 MG TABLET. PO SCH (10:22)
[2017-01-09] MEDS: NITROGLYCERIN 0.1MG/HR PATCH. TD SCH (10:24)
[2017-01-09 11:00] VITALS: BP 153/60
[2017-01-09] MEDS ORDERED: OXYC-328 PO (13:33)
--- NOTE | 2017-01-12 12:07 | RAD ---
APPROVED REPORT Imaging Protocol IMAGE PROTOCOL: Viability only Rest: Stress: Viability: Radiopharm.Thallium Dose4.1mCi Img Date 01/08/2017 Viability Admin Site:IV - Left AntecubitalAdministrator: RT Raegan (R)(N) Viability without Stress The patient was injected with 3.1mCi of Thallium 201 in the IV - Left Antecubital by NANETTE Carlin at , 0825 Date/Time. Initial Imaging was performed by DICK Carlin at , Date/Time. The patient was injected with 1mCi of Thallium 201 in the IV - Left Antecubital by DICK Carlin at , 0915 Date/Time. Delayed Images were acquired by DICK Carlin at , 1300 Date/Time. 24 Hour Delayed Images were acquired by DICK Carlin at , 0830 Date/Time. Motion Correction: No LV Perf. Quant 17 Seg. SSS8.00 17 Seg. SRS15.00 17 Seg. SDS0.00 Stress Defect Extent (% LAD)25.60Rest Defect Extent (% LAD)25.00Rev. Defect Extent (% LAD)1.90 Stress Defect Extent (% LCX) 6.30Rest Defect Extent (% LCX)45.00Rev. Defect Extent (% LCX)0.00 Stress Defect Extent (% RCA)6.70Rest Defect Extent (% RCA)13.30Rev. Defect Extent (% RCA)0.00 Stress Defect Extent (% HUGH)19.10Rest Defect Extent (% HUGH)32.20Rev. Defect Extent (% HUGH)0.70 Delay and Viability Reg. Stress Perf. Score/SegExt. Delay Perf Defect (LAD)31.30 Reg. Rest Perf. Score/SegExt. Delay Perf Defect (LCX)11.30 Reg. Delay Perf. Score/SegExt. Delay Perf Defect (RCA)2.20 Summed Delay Score9.00Ext. Delay Perf Defect (HUGH)22.80 Ext. Viability (LAD)3.00 # Seg/Reg. in Scoring OverlayExt. Viability (LCX)45.00 # Seg/Reg. in Scoring OverlayExt. Viability (RCA)13.00 Ext. Viability (HUGH)21.00 Conclusion 1. Myocardial viability study was obtained after injection of 3 mCi of thallium 101. 2. Images were obtained. After waiting for 4 hours an additional 1 mCi of thallium was injected and f urther images were obtained. 3. 24-hour images were obtained the next day. 4. Non viability is seen over the apex.The rRest of the myocardium is viable.
--- NOTE | 2017-01-13 18:11 | DS ---
DATE OF DISCHARGE: 01/09/2017 CHIEF COMPLAINT: Chest pain. HOSPITAL COURSE: The patient is a 61-year-old who had presented with severe chest pain. This was essentially spontaneously resolving. She actually underwent myocardial perfusion imaging that revealed non-viability in the apex, rest of myocardium was viable. Echocardiogram showed ejection fraction of 50% with some mild apical dilation and mild concentric left ventricular hypertrophy. She was therefore deemed stable for discharge to home on the with outpatient cardiology followup. PHYSICAL EXAM: VS: stable GEN: A&O, NAD CV: RRR PULM: clear ABD: BS+ EXTR: no edema DISCHARGE DATE: 01/09/2017. DISCHARGE DIAGNOSIS: Chest pain. DISCHARGE DISPOSITION: To home. DISCHARGE CONDITION: Improved. DISCHARGE MEDICATIONS: Please refer to MAR. DISCHARGE INSTRUCTIONS: The patient will follow up with Dr. Pat as arranged. ANNABELLE BOWMAN MD DR: KIMBERLEE/nts JOB#: [id number] / [id number] NYDIA Rodriguez MD MTDSouleymane
== END 2017-01-09 18:40 | disposition home or self-care (01) | DRG 391 ==
LOC: ER 12:35 → 2 NORTH 16:30
PROVIDERS: ADMIT Internal Medicine; ATTEND Internal Medicine
PROC: B24BZZ4 Ultrasonography of Heart with Aorta, Transesophageal (ICD-10-PCS; principal; 2017-01-08 12:00)
DX: K21.9 Gastro-esophageal reflux disease without esophagitis (principal); J96.20 Acute and chronic respiratory failure, unspecified whether with hypoxia or hypercapnia; E11.40 Type 2 diabetes mellitus with diabetic neuropathy, unspecified; Z68.41 Body mass index [BMI] 40.0-44.9, adult; I11.0 Hypertensive heart disease with heart failure; I50.9 Heart failure, unspecified; E66.9 Obesity, unspecified; E78.5 Hyperlipidemia, unspecified; I20.9 Angina pectoris, unspecified; I25.2 Old myocardial infarction; J44.9 Chronic obstructive pulmonary disease, unspecified; Z83.3 Family history of diabetes mellitus; Z90.710 Acquired absence of both cervix and uterus; Z95.1 Presence of aortocoronary bypass graft; Z96.659 Presence of unspecified artificial knee joint; Z99.81 Dependence on supplemental oxygen; Z90.49 Acquired absence of other specified parts of digestive tract
CPT/HCPCS: 36415; 71010; 71275; 78451; 78452; 80048; 80053; 80061; 82962; 83036; 84484; 85025; 85379; 90686; 93005; 93312; 93320; 93325; 96374; 96375; 96376; A9505; J1815; J2270; J2405; J2704; Q9967; 99285-25; J2001

== ENCOUNTER 2017-01-28 11:39 | Inpatient (IN) | payer OTHER ==
[2017-01-28] VITALS (9 sets, daily range): BP systolic 105–191; BP diastolic 58–86
[~2017-01-28] VITALS: Ht 162.6 cm; Wt 111.7 kg
[2017-01-28] MEDS ORDERED: IV NORMAL SALINE 1000ML BAG 1,000 ML IV SCH ×2 (12:21→13:29)
[2017-01-28] MEDS ORDERED: LABETALOL 20 MG/4 ML DISP.SYRIN. IVP ONE (12:30)
[2017-01-28] MEDS ORDERED: ONDANSETRON PF 4 MG/2 ML VIAL. IV ONE (12:30)
--- NOTE | 2017-01-28 12:40 | PHYS DOC ---
Past Medical History Past Medical History: Diabetes-Type II, Hypertension, HI Additional Past Medical Histor: neuropathy, SLEEP APNEA Past Surgical History: Cholecystectomy, Coronary Bypass Surgery, Hysterectomy, Knee Replacement, Other Additional Past Surgical Histo: HERNIA, breast reduction, CABG 2015, cardiac cath/stent, L KNEE Alcohol Use: None Drug Use: None Adult General Chief Complaint Chief Complaint: SHORTNESS OF BREATH HPI HPI Patient is a 62 year old female who presents with complaint of chest pain and shortness of breath. Patient states her symptoms have been worsening over the past 2 days. Patient states that she is having tightness along the right side of her chest and states that she is having difficulty breathing especially with exertion. Patient denies any fever or productive cough. Patient has history of coronary artery disease and hypertension. Patient follows with Dr. Pat for cardiology care. Patient's primary doctor is Dr. Venegas. Patient currently rates pain 7 out of 10. Patient took 4 baby aspirin and 2 nitroglycerin tablets prior to arrival with no improvement in symptoms. Patient noted to be hypertensive at triage. Patient states that she has been taking her medication for her blood pressure and has had no recent changes to her regimen. Review of Systems Review of Systems Constitutional: Denies fever or chills [] Eyes: Denies change in visual acuity, redness, or eye pain [] HENT: Denies nasal congestion or sore throat [] Respiratory: Shortness of breath[] Cardiovascular: Chest pain[] GI: Denies abdominal pain, nausea, vomiting, bloody stools or diarrhea [] : Denies dysuria or hematuria [] Musculoskeletal: Denies back pain or joint pain [] Integument: Denies rash or skin lesions [] Neurologic: Denies headache, focal weakness or sensory changes [] Current Medications Current Medications Current Medications Medications (Trade) Dose Ordered Sig/Susan Start Time Stop Time Status Last Admin Dose Admin Fentanyl Citrate (Fentanyl 2ml Vial) 50 mcg PRN Q15MIN PRN 01/28/17 12:30 01/29/17 12:29 01/28/17 14:37 50 MCG Labetalol HCl (Normodyne) 20 mg 1X ONCE 01/28/17 12:30 01/28/17 12:33 DC 01/28/17 13:07 20 MG Nicardipine HCl 50 mg/Sodium Chloride 270 ml @ 0 mls/hr CONT PRN 01/28/17 13:15 01/28/17 13:33 12.5 MLS/HR Ondansetron HCl (Zofran) 4 mg 1X ONCE 01/28/17 12:30 01/28/17 12:31 DC 01/28/17 13:05 4 MG Sodium Chloride 1,000 ml @ 125 mls/hr Q8H 01/28/17 12:21 01/28/17 20:20 01/28/17 13:05 125 MLS/HR Allergies Allergies Allergies Coded Allergies Type Severity Reaction Last Updated Verified No Known Drug Allergies 08/01/13 No Physical Exam Physical Exam Constitutional: Alert, obese, afebrile, appears in moderate discomfort.[] HENT: Normocephalic, atraumatic, bilateral external ears normal, oropharynx moist, no oral exudates, nose normal. [] Eyes: PERRLA, EOMI, conjunctiva normal, no discharge. [] Neck: Normal range of motion, no tenderness, supple, no stridor. [] Cardiovascular:Heart rate regular rhythm, no murmur [] Lungs & Thorax: Mild to moderate restriction of air movement bilaterally, no wheezes, no rales[] Abdomen: Bowel sounds normal, soft, no tenderness, no masses, no pulsatile masses. [] Skin: Warm, dry, no erythema, no rash. [] Back: No tenderness, no CVA tenderness. [] Extremities: No tenderness, no cyanosis, no clubbing, ROM intact, no edema. [] Neurologic: Alert and oriented X 3, normal motor function, normal sensory function, no focal deficits noted. [] Current Patient Data Vital Signs Vital Signs Date Time Temp Pulse Resp B/P (MAP) Pulse Ox O2 Delivery O2 Flow Rate FiO2 01/28/17 13:15 56 18 180/68 (105) 100 Nasal Cannula 3.0 01/28/17 12:15 98.8 98.8 Lab Values Laboratory Tests Test 01/28/17 12:30 White Blood Count 8.0 x10^3/uL (4.0-11.0) Red Blood Count 4.50 x10^6/uL (3.50-5.40) Hemoglobin 12.0 g/dL (12.0-15.5) Hematocrit 38.1 % (36.0-47.0) Mean Corpuscular Volume 85 fL (79-100) Mean Corpuscular Hemoglobin 27 pg (25-35) Mean Corpuscular Hemoglobin Concent 32 g/dL (31-37) Red Cell Distribution Width 15.7 % (11.5-14.5) H Platelet Count 305 x10^3/uL (140-400) Neutrophils (%) (Auto) 81 % (31-73) H Lymphocytes (%) (Auto) 12 % (24-48) L Monocytes (%) (Auto) 6 % (0-9) Eosinophils (%) (Auto) 0 % (0-3) Basophils (%) (Auto) 1 % (0-3) Neutrophils # (Auto) 6.4 x10^3uL (1.8-7.7) Lymphocytes # (Auto) 1.0 x10^3/uL (1.0-4.8) Monocytes # (Auto) 0.5 x10^3/uL (0.0-1.1) Eosinophils # (Auto) 0.0 x10^3/uL (0.0-0.7) Basophils # (Auto) 0.0 x10^3/uL (0.0-0.2) Sodium Level 139 mmol/L (136-145) Potassium Level 4.3 mmol/L (3.5-5.1) Chloride Level 98 mmol/L (98-107) Carbon Dioxide Level 40 mmol/L (21-32) H Anion Gap 1 (6-14) L Blood Urea Nitrogen 11 mg/dL (7-20) Creatinine 0.8 mg/dL (0.6-1.0) Estimated GFR (Cockcroft-Gault) 87.7 BUN/Creatinine Ratio 14 (6-20) Glucose Level 168 mg/dL (70-99) H Calcium Level 9.4 mg/dL (8.5-10.1) Magnesium Level 1.9 mg/dL (1.8-2.4) Total Bilirubin 0.4 mg/dL (0.2-1.0) Aspartate Amino Transferase (AST) 17 U/L (15-37) Alanine Aminotransferase (ALT) 22 U/L (14-59) Alkaline Phosphatase 108 U/L (46-116) Creatine Kinase 49 U/L (26-192) Creatine Kinase MB (Mass) < 0.5 ng/mL (0.0-3.6) Creatine Kinase MB Relative Index % (0-4) Troponin I Quantitative 0.023 ng/mL (0.000-0.055) KD-Hva-R-Type Natriuretic Peptide 1440 pg/mL (0-124) H Total Protein 8.0 g/dL (6.4-8.2) Albumin 3.0 g/dL (3.4-5.0) L Albumin/Globulin Ratio 0.6 (1.0-1.7) L Lipase 61 U/L (73-393) L Laboratory Tests 01/28/17 12:30 Laboratory Tests 01/28/17 12:30 EKG EKG Interpreted by me: Heart rate 73, sinus rhythm, left bundle branch block, no acute ST elevations or depressions, no acute changes from previous EKG[] Radiology/Procedures Radiology/Procedures [facility] [address] [place] [address] IMAGING REPORT Signed PATIENT: GRETCHEN BONILLA ACCOUNT: [id number] : 1955 LOCATION: ER AGE: 62 SEX: F EXAM STATUS: REG ER ORD. PHYSICIAN: AIME FREEMAN MD REASON: chest pain PROCEDURE: PORTABLE CHEST 1V Portable AP upright view CXR: Clinical indications: Chest pain today. Comparison: January 06, 2017. Findings: Mild interstitial pulmonary edema is seen. There is thickening of the minor fissure indicative of small amount of pleural fluid on the right side. No significant blunting of the lateral costophrenic angles is seen otherwise. No pneumothorax is evident. The heart size is enlarged but stable. A sternotomy is again evident. The mediastinum and pulmonary vasculature are unchanged. IMPRESSION: Mild CHF. DICTATED and SIGNED BY: GUERO NASCIMENTO MD DATE: 01/28/17 1311 CC: AIME FREEMAN MD; INDERJIT KOCH MD ~ [] Course & Med Decision Making Course & Med Decision Making Pertinent Labs and Imaging studies reviewed. (See chart for details) Patient's found have critically elevated blood pressure in the emergency department. Patient was initiated on labetalol therapy. I spoke with Dr. Arias, sales service supervisor, who has followed with patient in hospital at previous visits. He agreed with initiation of low-dose IV Cardene for continued control of patient's blood pressure. Initial cardiac enzymes showed no elevation in troponin levels. Patient does have an elevated BNP suggesting active CHF component. Patient will be admitted for further treatment. I spoke with Dr. James who accepted care patient in hospital. Critical care time excluding procedures: 35 minutes Dragon Disclaimer Dragon Disclaimer This electronic medical record was generated, in whole or in part, using a voice recognition dictation system. Departure Departure Impression: Primary Impression: Malignant hypertension Additional Impressions: Congestive heart failure Coronary artery disease Disposition: 09 ADMITTED INPATIENT Admitting Physician: Nani James Condition: GUARDED Referrals: INDERJIT KOCH MD (PCP) Problem Qualifiers Additional Impressions: Congestive heart failure Congestive heart failure type: unspecified congestive heart failure type Congestive heart failure chronicity: unspecified congestive heart failure chronicity Qualified Codes: I50.9 - Heart failure, unspecified Coronary artery disease Coronary Disease-Associated Artery/Lesion type: unspecified vessel or lesion type [place] vs. transplanted heart: [place] heart Associated angina: with other forms of angina Qualified Codes: I25.118 - Atherosclerotic heart disease of [place] coronary artery with other forms of angina pectoris AIME FREEMAN MD Jan 28, 2017 12:40
[2017-01-28 12:41] LABS: BASO % 1 % (0-3); EOS % 0 % (0-3); HEMATOCRIT 38.1 % (36.0-47.0); LYMPH % 12 % (24-48); MEAN CORPUSCULAR HEMOGLOBIN 27 pg (25-35); MEAN CORPUSCULAR HGB CONC 32 g/dL (31-37); MEAN CORPUSCULAR VOLUME 85 fL (79-100); MONO % 6 % (0-9); NEUT % 81 % (31-73); PLATELET COUNT 305 x10^3/uL (140-400); RED CELL DISTRIBUTION WIDTH 15.7 % (11.5-14.5)
[2017-01-28 12:50] LABS: CALCIUM 9.4 mg/dL (8.5-10.1); CREATININE 0.8 mg/dL (0.6-1.0); GFR 87.7; POTASSIUM 4.3 mmol/L (3.5-5.1)
[2017-01-28 12:56] LABS: ALBUMIN/GLOBULIN RATIO 0.6 (1.0-1.7); MAGNESIUM 1.9 mg/dL (1.8-2.4); TOTAL BILIRUBIN 0.4 mg/dL (0.2-1.0)
[2017-01-28] MEDS: fentaNYL PF VIAL 100 MCG/2 ML VIAL IV PRN ×2 (13:06→14:37)
[2017-01-28 13:07] LABS: CKMB MASS < 0.5 ng/mL (0.0-3.6); CREATINE KINASE 49 U/L (26-192)
--- NOTE | 2017-01-28 13:17 | RAD ---
Portable AP upright view CXR: Clinical indications: Chest pain today. Comparison: January 06, 2017. Findings: Mild interstitial pulmonary edema is seen. There is thickening of the minor fissure indicative of small amount of pleural fluid on the right side. No significant blunting of the lateral costophrenic angles is seen otherwise. No pneumothorax is evident. The heart size is enlarged but stable. A sternotomy is again evident. The mediastinum and pulmonary vasculature are unchanged. IMPRESSION: Mild CHF.
[2017-01-28] MEDS ORDERED: ACETAMINOPHEN 325 MG TABLET. PO PRN (13:30)
[2017-01-28] MEDS ORDERED: ONDANSETRON PF 4 MG/2 ML VIAL. IV PRN ×2 (13:30→14:15)
[2017-01-28] MEDS ORDERED: fentaNYL PF VIAL 100 MCG/2 ML VIAL IV PRN (13:30)
[2017-01-28] MEDS ORDERED: NITROGLYCERIN SUBLINGUAL 0.4 MG BOTTLE OF 25. SL PRN (14:15)
[2017-01-28] MEDS ORDERED: IBUPROFEN 600 MG TABLET. PO PRN (14:15)
[2017-01-28] MEDS ORDERED: diphenhydrAMINE HCL 25 MG CAPSULE PO PRN (14:15)
[2017-01-28] MEDS ORDERED: ACETAMINOPHEN 500 MG TABLET PO PRN (14:15)
--- NOTE | 2017-01-28 14:25 | EKG ---
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
--- NOTE | 2017-01-28 15:03 | PDOC1 ---
History and Physical Date of Admission Date of Admission DATE: 01/28/17 TIME: 14:58 Identification/Chief Complaint Chief Complaint SOA, CP Problems: Source Source: Caregiver, Chart review, Patient History of Present Illness History of Present Illness 62 y.o obese AA female comes in bec of CP, and SOA, has happened in the past causing past admits, Was found to have BP > 200s on admit which came down to 180 after labetolol. Known to Abdiel Valencia, cards consulted, David Valencia has ordered cardene gtt in ICU, CXR shows mild CHF, BNP 1440. She is also Dm 2 on insulin last hgba1c > 3 mos ago was 7.5 (in August 2016) Claims compliance to insulin and meds, BS ok at ER CP as midsternal dull, no identifiable alleviating or precipitating factor, no diaphoresis or presyncopal sxs Past Medical History Cardiovascular: HTN Pulmonary: No pertinent hx GI: No pertinent hx Heme/Onc: No pertinent hx Hepatobiliary: No pertinent hx Psych: No pertinent hx Rheumatologic: No pertinent hx Endocrine: Diabetes Past Surgical History Past Surgical History: Appendectomy, Total knee replacement Family History Family History: Diabetes Social History Smoke: No ALCOHOL: none Drugs: None Current Problem List Problem List Problems Medical Problems: (1) Malignant hypertension Status: Acute Problems: Current Medications Current Medications Current Medications Fentanyl Citrate (Fentanyl 2ml Vial) 50 mcg PRN Q15MIN PRN IV PAIN GREATER THAN 3/10 Last administered on 01/28/17 14:37; Start 01/28/17 at 12:30; Stop 01/29/17 at 12:29 Sodium Chloride 1,000 ml @ 125 mls/hr Q8H IV Last administered on 01/28/17 13 :05; Start 01/28/17 at 12:21; Stop 01/28/17 at 20:20 Ondansetron HCl (Zofran) 4 mg 1X ONCE IV Last administered on 01/28/17 13:05 ; Start 01/28/17 at 12:30; Stop 01/28/17 at 12:31; Status DC Labetalol HCl (Normodyne) 20 mg 1X ONCE IVP Last administered on 01/28/17 13: 07; Start 01/28/17 at 12:30; Stop 01/28/17 at 12:33; Status DC Nicardipine HCl 50 mg/Sodium Chloride 270 ml @ 0 mls/hr CONT PRN IV SEE I/O RECORD Last administered on 01/28/17t 13:33; Start 01/28/17 at 13:15 Ondansetron HCl (Zofran) 4 mg PRN Q8HRS PRN IV NAUSEA/VOMITING; Start 01/28/17 at 13:30; Stop 01/28/17 at 14:14; Status DC Fentanyl Citrate (Fentanyl 2ml Vial) 50 mcg PRN Q2HR PRN IV PAIN; Start at 13:30; Stop 01/29/17 at 13:29 Sodium Chloride 1,000 ml @ 0 mls/hr Q0M IV ; Start 01/28/17 at 13:29; Stop 01/29/17 at 13:28 Acetaminophen (Tylenol) 650 mg PRN Q4HRS PRN PO FEVER; Start 01/28/17 at 13:30 ; Stop 01/29/17 at 13:29 Ondansetron HCl (Zofran) 4 mg PRN Q6HRS PRN IV NAUSEA/VOMITING; Start 01/28/17 at 14:15; Stop 01/29/17 at 14:14 Acetaminophen (Tylenol) 500 mg PRN Q6HRS PRN PO MILD PAIN / TEMP; Start at 14:15 Ibuprofen (Motrin) 600 mg PRN Q6HRS PRN PO INFLAMMATION; Start 01/28/17 at 14: 15 Diphenhydramine HCl (Benadryl) 25 mg PRN QHS PRN PO INSOMNIA; Start 01/28/17 at 14:15 Aspirin (Ecotrin) 81 mg DAILY PO ; Start 01/29/17 at 09:00 Atorvastatin Calcium (Lipitor) 20 mg HS PO ; Start 01/28/17 at 21:00 Clopidogrel Bisulfate (Plavix) 75 mg DAILY PO ; Start 01/29/17 at 09:00 Famotidine (Pepcid) 20 mg BID PO ; Start 01/28/17 at 21:00 Ferrous Sulfate (Feosol) 325 mg DAILY PO ; Start 01/29/17 at 09:00 Furosemide (Lasix) 80 mg BID92 PO ; Start 01/28/17 at 15:00 Insulin Aspart (NovoLOG) 20 units TIDWMEALS SQ ; Start 01/28/17 at 17:00 Insulin Detemir (Levemir) 32 units BID SQ ; Start 01/28/17 at 21:00 Metoprolol Tartrate (Lopressor) 25 mg BID PO ; Start 01/28/17 at 21:00 Nitroglycerin (Nitrostat) 0.4 mg PRN Q5MIN PRN SL CHEST PAIN; Start 01/28/17 at 14:15 Oxycodone/ Acetaminophen (Percocet 10/325) 1 tab PRN QID PRN PO PAIN; Start at 14:15 Oxycodone/ Acetaminophen (Percocet 10/325) 2 tab PRN Q6HRS PRN PO PAIN; Start 01/28/17 at 14:15 Potassium Chloride (Klor-Con) 10 meq BIDWMEALS PO ; Start 01/28/17 at 17:00 Active Scripts Active Percocet 10-325 Mg Tablet (Oxycodone/Acetaminophen) 1 Each Tablet 1 Tab PO Q6- 8HRS PRN Lasix (Furosemide) 80 Mg Tablet 1 Tab PO BID Reported Ferrous Sulfate 325 Mg Tablet 1 Tab PO DAILY NITROGLYCERIN SubLingual (Nitroglycerin) 0.4 Mg Tab.subl 0.4 Mg SL PRN Q5MIN PRN Metoprolol Tartrate 25 Mg Tablet 1 Tab PO BID Percocet 10-325 Mg Tablet (Oxycodone/Acetaminophen) 1 Each Tablet 2 Tab PO PRN Q6HRS PRN Levemir Flextouch (Insulin Detemir) 100 Unit/1 Ml Insuln.pen 32 Unit SQ BID Novolog Flexpen (Insulin Aspart) 100 Unit/1 Ml Insuln.pen 20 Unit SQ TIDWMEALS Atorvastatin Calcium 20 Mg Tablet 20 Mg PO HS Potassium Chloride 10 Meq Capsule.er 10 Meq PO BID Aspir 81 (Aspirin) 81 Mg Tablet.dr 1 Tab PO DAILY Clopidogrel (Clopidogrel Bisulfate) 75 Mg Tablet 1 Tab PO DAILY Famotidine 20 Mg Tablet 20 Mg PO BID Allergies Allergies: Coded Allergies: No Known Drug Allergies (Unverified , 08/01/13) ROS General: No: Chills, Night Sweats, Fatigue, Malaise, Appetite, Other PSYCHOLOGICAL ROS: No: Anxiety, Behavioral Disorder, Concentration difficultie , Decreased libido, Depression, Disorientation, Hallucinations, Hostility, Irritablity, Memory difficulties, Mood Swings, Obsessive thoughts, Physical abuse, Sexual abuse, Sleep disturbances, Suicidal ideation, Other Eyes: No Blurry vision, No Decreased vision, No Double vision, No Dry eyes, No Excessive tearing, No Eye Pain, No Itchy Eyes, No Loss of vision, No Photophobia , No Scotomata, No Uses contacts, No Uses glasses, No Other HEENT: No: Heacaches, Visual Changes, Hearing change, Nasal congestion, Nasal discharge, Oral lesions, Sinus pain, Sore Throat, Epistaxis, Sneezing, Snoring, Tinnitus, Vertigo, Vocal changes, Other ALLERGY AND IMMUNOLOGY: No: Hives, Insect Bite Sensitivity, Itchy/Watery Eyes, Nasal Congestion, Post Nasal Drip, Seasonal Allergies, Other Hematological and Lymphatic: No: Bleeding Problems, Blood Clots, Blood Transfusions, Brusing, Night Sweats, Pallor, Swollen Lymph Nodes, Other ENDOCRINE: No: Breast Changes, Galactorrhea, Hair Pattern Changes, Hot Flashes , Malaise/lethargy, Mood Swings, Palpitations, Polydipsia/polyuria, Skin Changes , Temperature Intolerance, Unexpected Weight Changes, Other Breast: No New/Changing Breast Lumps, No Nipple changes, No Nipple discharge, No Other Respiratory: YES: Shortness of breath, SOB with excertion Cardiovascular: yes Chest Pain Gastrointestinal: No Nausea, No Vomiting, No Abdominal Pain, No Diarrhea, No Constipation, No Melena, No Hematochezia, No Other Genitourinary: No Dysuria, No Frequency, No Incontinence, No Hematuria, No Retention, No Discharge, No Urgency, No Pain, No Flank Pain, No Other, No , No , No , No , No , No , No Musculoskeletal: No Gait Disturbance, No Joint Pain, No Joint Stiffness, No Joint Swelling, No Muscle Pain, No Muscular Weakness, No Pain In:, No Swelling In:, No Other Neurological: No Behavorial Changes, No Bowel/Bladder ControlChng, No Confusion , No Dizziness, No Gait Disturbance, No Headaches, No Impaired Coord/balance, No Memory Loss, No Numbness/Tingling, No Seizures, No Speech Problems, No Tremors, No Visual Changes, No Weakness, No Other Skin: No Dry Skin, No Eczema, No Hair Changes, No Lumps, No Mole Changes, No Mottling, No Nail Changes, No Pruritus, No Rash, No Skin Lesion Changes, No Other, No Acne Physical Exam General: Alert, Oriented X3, Cooperative, No acute distress HEENT: Atraumatic, PERRLA Lungs: Normal air movement Heart: S1S2, RRR, no thrills, no rubs, no gallops, no murmurs Cardiovascular: S1, S2 Breasts: Normal, Rt breast nml w/o mass, Lt breast nml w/o mass, Nipples normal Abdomen: Normal bowel sounds, Soft, No tenderness, No hepatosplenomegaly, No masses Rectal Exam: not examined PELVIC: Nml ext genitalia Extremities: No clubbing, No cyanosis, No edema, Normal pulses, No tenderness/ swelling Skin: No rashes, No breakdown, No significant lesion Neuro: Normal gait, Normal speech, Strength at 5/5 X4 ext, Normal tone, Sensation intact, Cranial nerves 3-12 NL, Reflexes 2+ Psych/Mental Status: Mental status NL, Mood NL Vitals Vitals Vital Signs Date Time Temp Pulse Resp B/P (MAP) Pulse Ox O2 Delivery O2 Flow Rate FiO2 01/28/17 14:37 Nasal Cannula 3.0 01/28/17 14:36 58 18 118/60 (79) 100 01/28/17 12:15 98.8 98.8 Labs Labs Laboratory Tests Test 01/28/17 12:30 White Blood Count 8.0 x10^3/uL (4.0-11.0) Red Blood Count 4.50 x10^6/uL (3.50-5.40) Hemoglobin 12.0 g/dL (12.0-15.5) Hematocrit 38.1 % (36.0-47.0) Mean Corpuscular Volume 85 fL (79-100) Mean Corpuscular Hemoglobin 27 pg (25-35) Mean Corpuscular Hemoglobin Concent 32 g/dL (31-37) Red Cell Distribution Width 15.7 % (11.5-14.5) Platelet Count 305 x10^3/uL (140-400) Neutrophils (%) (Auto) 81 % (31-73) Lymphocytes (%) (Auto) 12 % (24-48) Monocytes (%) (Auto) 6 % (0-9) Eosinophils (%) (Auto) 0 % (0-3) Basophils (%) (Auto) 1 % (0-3) Neutrophils # (Auto) 6.4 x10^3uL (1.8-7.7) Lymphocytes # (Auto) 1.0 x10^3/uL (1.0-4.8) Monocytes # (Auto) 0.5 x10^3/uL (0.0-1.1) Eosinophils # (Auto) 0.0 x10^3/uL (0.0-0.7) Basophils # (Auto) 0.0 x10^3/uL (0.0-0.2) Sodium Level 139 mmol/L (136-145) Potassium Level 4.3 mmol/L (3.5-5.1) Chloride Level 98 mmol/L (98-107) Carbon Dioxide Level 40 mmol/L (21-32) Anion Gap 1 (6-14) Blood Urea Nitrogen 11 mg/dL (7-20) Creatinine 0.8 mg/dL (0.6-1.0) Estimated GFR (Cockcroft-Gault) 87.7 BUN/Creatinine Ratio 14 (6-20) Glucose Level 168 mg/dL (70-99) Calcium Level 9.4 mg/dL (8.5-10.1) Magnesium Level 1.9 mg/dL (1.8-2.4) Total Bilirubin 0.4 mg/dL (0.2-1.0) Aspartate Amino Transf (AST/SGOT) 17 U/L (15-37) Alanine Aminotransferase (ALT/SGPT) 22 U/L (14-59) Alkaline Phosphatase 108 U/L (46-116) Creatine Kinase 49 U/L (26-192) Creatine Kinase MB (Mass) < 0.5 ng/mL (0.0-3.6) Creatine Kinase MB Relative Index % (0-4) Troponin I Quantitative 0.023 ng/mL (0.000-0.055) YB-Naf-U-Type Natriuretic Peptide 1440 pg/mL (0-124) Total Protein 8.0 g/dL (6.4-8.2) Albumin 3.0 g/dL (3.4-5.0) Albumin/Globulin Ratio 0.6 (1.0-1.7) Lipase 61 U/L (73-393) Laboratory Tests Test 01/28/17 12:30 White Blood Count 8.0 x10^3/uL (4.0-11.0) Red Blood Count 4.50 x10^6/uL (3.50-5.40) Hemoglobin 12.0 g/dL (12.0-15.5) Hematocrit 38.1 % (36.0-47.0) Mean Corpuscular Volume 85 fL (79-100) Mean Corpuscular Hemoglobin 27 pg (25-35) Mean Corpuscular Hemoglobin Concent 32 g/dL (31-37) Red Cell Distribution Width 15.7 % (11.5-14.5) Platelet Count 305 x10^3/uL (140-400) Neutrophils (%) (Auto) 81 % (31-73) Lymphocytes (%) (Auto) 12 % (24-48) Monocytes (%) (Auto) 6 % (0-9) Eosinophils (%) (Auto) 0 % (0-3) Basophils (%) (Auto) 1 % (0-3) Neutrophils # (Auto) 6.4 x10^3uL (1.8-7.7) Lymphocytes # (Auto) 1.0 x10^3/uL (1.0-4.8) Monocytes # (Auto) 0.5 x10^3/uL (0.0-1.1) Eosinophils # (Auto) 0.0 x10^3/uL (0.0-0.7) Basophils # (Auto) 0.0 x10^3/uL (0.0-0.2) Sodium Level 139 mmol/L (136-145) Potassium Level 4.3 mmol/L (3.5-5.1) Chloride Level 98 mmol/L (98-107) Carbon Dioxide Level 40 mmol/L (21-32) Anion Gap 1 (6-14) Blood Urea Nitrogen 11 mg/dL (7-20) Creatinine 0.8 mg/dL (0.6-1.0) Estimated GFR (Cockcroft-Gault) 87.7 BUN/Creatinine Ratio 14 (6-20) Glucose Level 168 mg/dL (70-99) Calcium Level 9.4 mg/dL (8.5-10.1) Magnesium Level 1.9 mg/dL (1.8-2.4) Total Bilirubin 0.4 mg/dL (0.2-1.0) Aspartate Amino Transf (AST/SGOT) 17 U/L (15-37) Alanine Aminotransferase (ALT/SGPT) 22 U/L (14-59) Alkaline Phosphatase 108 U/L (46-116) Creatine Kinase 49 U/L (26-192) Creatine Kinase MB (Mass) < 0.5 ng/mL (0.0-3.6) Creatine Kinase MB Relative Index % (0-4) Troponin I Quantitative 0.023 ng/mL (0.000-0.055) PT-Jtu-C-Type Natriuretic Peptide 1440 pg/mL (0-124) Total Protein 8.0 g/dL (6.4-8.2) Albumin 3.0 g/dL (3.4-5.0) Albumin/Globulin Ratio 0.6 (1.0-1.7) Lipase 61 U/L (73-393) VTE Prophylaxis Ordered VTE Prophylaxis Devices: Yes VTE Pharmacological Prophylaxi: Yes Assessment/Plan Assessment/Plan 1. HTN emergency POA 2. DM 2 3. Obesity BMI 41 PLAn: ICU admit \CArdene gtt SSI high dose Check hgba1c Resume hoem emds Consult cards - done Seen in ER CATHIE KNIGHT MD Jan 28, 2017 15:03
[2017-01-28] MEDS ORDERED: DEXTROSE 50% 25 GM / 50ML DISP.SYRIN. IV PRN (15:15)
[2017-01-28] MEDS ORDERED: METO50TA6 PO (15:44)
[2017-01-28] MEDS: FUROSEMIDE 80 MG TABLET. PO SCH (15:53)
[2017-01-28] MEDS: POTASSIUM CHLORIDE 10 MEQ TABLET.ER. PO SCH (15:53)
[2017-01-28] MEDS: oxyCODONE/APAP 10/325 1 TAB TABLET PO PRN ×2 (15:53→22:08)
[2017-01-28] MEDS: LOSARTAN POTASSIUM 50 MG TABLET. PO SCH (15:58)
--- NOTE | 2017-01-28 16:55 | PDOC2 ---
CONSULT Date of Consult Date of Consult DATE: 01/28/17 TIME: 16:49 Reason for Consult Reason for Consult: High blood pressure Referring Physician Referring Physician: Dr James Identification/Chief Complaint Chief Complaint High blood pressure Problems: History of Present Illness Reason for Visit: This patient is a very pleasant 62-year-old lady that has a known history of coronary artery disease and she is status post coronary artery bypass surgery. She had a heart catheterization done 3 months ago that showed [place] coronary artery disease but the graft to the obtuse marginal and the GARCIA graft to the LAD were open. 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 She has significant hypertension and this has been difficult to control in the past. The patient comes in with about 3 days of progressive dyspnea and on arrival to the ER she could not walk more than a few feet without being completely short of breath. Her blood pressure was over 200/105 when she arrived to the ER. Was seen and evaluated in the ER and he was decided to admit her for further treatment. At the time that I saw her she denies having any chest pains but states that when her blood pressure is high she gets very short of breath and her chest tripp tight. Past Medical History Cardiovascular: CAD, CHF, HTN Pulmonary: No pertinent hx GI: No pertinent hx Heme/Onc: No pertinent hx Hepatobiliary: No pertinent hx Psych: No pertinent hx Rheumatologic: No pertinent hx Endocrine: Diabetes Past Surgical History Past Surgical History: Appendectomy, Total knee replacement Family History Family History: Diabetes Social History No ALCOHOL: none Drugs: None Current Problem List Problem List Problems Medical Problems: (1) Congestive heart failure Status: Acute (2) Coronary artery disease Status: Acute (3) Malignant hypertension Status: Acute Current Medications Current Medications Current Medications Fentanyl Citrate (Fentanyl 2ml Vial) 50 mcg PRN Q15MIN PRN IV PAIN GREATER THAN 3/10 Last administered on 01/28/17 14:37; Start 01/28/17 at 12:30; Stop 01/29/17 at 12:29 Sodium Chloride 1,000 ml @ 125 mls/hr Q8H IV Last administered on 01/28/17 13 :05; Start 01/28/17 at 12:21; Stop 01/28/17 at 20:20 Ondansetron HCl (Zofran) 4 mg 1X ONCE IV Last administered on 01/28/17 13:05 ; Start 01/28/17 at 12:30; Stop 01/28/17 at 12:31; Status DC Labetalol HCl (Normodyne) 20 mg 1X ONCE IVP Last administered on 01/28/17 13: 07; Start 01/28/17 at 12:30; Stop 01/28/17 at 12:33; Status DC Nicardipine HCl 50 mg/Sodium Chloride 270 ml @ 0 mls/hr CONT PRN IV SEE I/O RECORD Last administered on 01/28/17 13:33; Start 01/28/17 at 13:15 Ondansetron HCl (Zofran) 4 mg PRN Q8HRS PRN IV NAUSEA/VOMITING; Start 01/28/17 at 13:30; Stop 01/28/17 at 14:14; Status DC Fentanyl Citrate (Fentanyl 2ml Vial) 50 mcg PRN Q2HR PRN IV PAIN; Start at 13:30; Stop 01/29/17 at 13:29 Sodium Chloride 1,000 ml @ 0 mls/hr Q0M IV ; Start 01/28/17 at 13:29; Stop 01/29/17 at 13:28 Acetaminophen (Tylenol) 650 mg PRN Q4HRS PRN PO FEVER; Start 01/28/17 at 13:30 ; Stop 01/29/17 at 13:29 Ondansetron HCl (Zofran) 4 mg PRN Q6HRS PRN IV NAUSEA/VOMITING; Start 01/28/17 at 14:15; Stop 01/29/17 at 14:14 Acetaminophen (Tylenol) 500 mg PRN Q6HRS PRN PO MILD PAIN / TEMP; Start at 14:15 Ibuprofen (Motrin) 600 mg PRN Q6HRS PRN PO INFLAMMATION; Start 01/28/17 at 14: 15 Diphenhydramine HCl (Benadryl) 25 mg PRN QHS PRN PO INSOMNIA; Start 01/28/17 at 14:15 Aspirin (Ecotrin) 81 mg DAILY PO ; Start 01/29/17 at 09:00 Atorvastatin Calcium (Lipitor) 20 mg HS PO ; Start 01/28/17 at 21:00 Clopidogrel Bisulfate (Plavix) 75 mg DAILY PO ; Start 01/29/17 at 09:00 Famotidine (Pepcid) 20 mg BID PO ; Start 01/28/17 at 21:00 Ferrous Sulfate (Feosol) 325 mg DAILY PO ; Start 01/29/17 at 09:00 Furosemide (Lasix) 80 mg BID92 PO Last administered on 01/28/17 15:53; Start 01/28/17 at 15:00 Insulin Aspart (NovoLOG) 20 units TIDWMEALS SQ ; Start 01/28/17 at 17:00 Insulin Detemir (Levemir) 32 units BID SQ ; Start 01/28/17 at 21:00 Metoprolol Tartrate (Lopressor) 25 mg BID PO ; Start 01/28/17 at 21:00; Stop at 21:00; Status DC Nitroglycerin (Nitrostat) 0.4 mg PRN Q5MIN PRN SL CHEST PAIN; Start 01/28/17 at 14:15 Oxycodone/ Acetaminophen (Percocet 10/325) 1 tab PRN QID PRN PO PAIN; Start at 14:15 Oxycodone/ Acetaminophen (Percocet 10/325) 2 tab PRN Q6HRS PRN PO PAIN Last administered on 01/28/17 15:53; Start 01/28/17 at 14:15 Potassium Chloride (Klor-Con) 10 meq BIDWMEALS PO Last administered on 15:53; Start 01/28/17 at 17:00 Insulin Aspart (NovoLOG) 0-9 UNITS TIDWMEALS SQ ; Start 01/28/17 at 17:00 Dextrose (Dextrose 50%-Water Syringe) 12.5 gm PRN Q15MIN PRN IV SEE COMMENTS; Start 01/28/17 at 15:15 Losartan Potassium (Cozaar) 100 mg DAILY PO Last administered on 01/28/17 15: 58; Start 01/28/17 at 16:00 Metoprolol Tartrate (Lopressor) 50 mg BID PO ; Start 01/28/17 at 21:00 Active Scripts Active Percocet 10-325 Mg Tablet (Oxycodone/Acetaminophen) 1 Each Tablet 1 Tab PO Q6- 8HRS PRN Lasix (Furosemide) 80 Mg Tablet 1 Tab PO BID Reported Metoprolol Tartrate 50 Mg Tablet 1 Tab PO BID Ferrous Sulfate 325 Mg Tablet 1 Tab PO DAILY NITROGLYCERIN SubLingual (Nitroglycerin) 0.4 Mg Tab.subl 0.4 Mg SL PRN Q5MIN PRN Percocet 10-325 Mg Tablet (Oxycodone/Acetaminophen) 1 Each Tablet 2 Tab PO PRN Q6HRS PRN Levemir Flextouch (Insulin Detemir) 100 Unit/1 Ml Insuln.pen 32 Unit SQ BID Novolog Flexpen (Insulin Aspart) 100 Unit/1 Ml Insuln.pen 20 Unit SQ TIDWMEALS Atorvastatin Calcium 20 Mg Tablet 20 Mg PO HS Potassium Chloride 10 Meq Capsule.er 10 Meq PO BID Aspir 81 (Aspirin) 81 Mg Tablet.dr 1 Tab PO DAILY Clopidogrel (Clopidogrel Bisulfate) 75 Mg Tablet 1 Tab PO DAILY Famotidine 20 Mg Tablet 20 Mg PO BID Allergies Allergies: Coded Allergies: No Known Drug Allergies (Unverified , 08/01/13) Physical Exam General: Alert, Oriented X3, Cooperative HEENT: PERRLA Lungs: Other (sounds are decreased, mild wheezing.) Heart: Other (regular rate and rhythm S1-S2, 2/6 systolic murmur.) Abdomen: Normal bowel sounds, Soft Extremities: Other (1+ edema) Vitals VITALS Vital Signs Date Time Temp Pulse Resp B/P (MAP) Pulse Ox O2 Delivery O2 Flow Rate FiO2 01/28/17 15:58 68 150/64 01/28/17 15:53 12 98 3.0 01/28/17 15:20 99.5 99.5 01/28/17 15:00 Nasal Cannula Labs Labs Laboratory Tests Test 01/28/17 12:30 White Blood Count 8.0 x10^3/uL (4.0-11.0) Red Blood Count 4.50 x10^6/uL (3.50-5.40) Hemoglobin 12.0 g/dL (12.0-15.5) Hematocrit 38.1 % (36.0-47.0) Mean Corpuscular Volume 85 fL (79-100) Mean Corpuscular Hemoglobin 27 pg (25-35) Mean Corpuscular Hemoglobin Concent 32 g/dL (31-37) Red Cell Distribution Width 15.7 % (11.5-14.5) Platelet Count 305 x10^3/uL (140-400) Neutrophils (%) (Auto) 81 % (31-73) Lymphocytes (%) (Auto) 12 % (24-48) Monocytes (%) (Auto) 6 % (0-9) Eosinophils (%) (Auto) 0 % (0-3) Basophils (%) (Auto) 1 % (0-3) Neutrophils # (Auto) 6.4 x10^3uL (1.8-7.7) Lymphocytes # (Auto) 1.0 x10^3/uL (1.0-4.8) Monocytes # (Auto) 0.5 x10^3/uL (0.0-1.1) Eosinophils # (Auto) 0.0 x10^3/uL (0.0-0.7) Basophils # (Auto) 0.0 x10^3/uL (0.0-0.2) Sodium Level 139 mmol/L (136-145) Potassium Level 4.3 mmol/L (3.5-5.1) Chloride Level 98 mmol/L (98-107) Carbon Dioxide Level 40 mmol/L (21-32) Anion Gap 1 (6-14) Blood Urea Nitrogen 11 mg/dL (7-20) Creatinine 0.8 mg/dL (0.6-1.0) Estimated GFR (Cockcroft-Gault) 87.7 BUN/Creatinine Ratio 14 (6-20) Glucose Level 168 mg/dL (70-99) Calcium Level 9.4 mg/dL (8.5-10.1) Magnesium Level 1.9 mg/dL (1.8-2.4) Total Bilirubin 0.4 mg/dL (0.2-1.0) Aspartate Amino Transf (AST/SGOT) 17 U/L (15-37) Alanine Aminotransferase (ALT/SGPT) 22 U/L (14-59) Alkaline Phosphatase 108 U/L (46-116) Creatine Kinase 49 U/L (26-192) Creatine Kinase MB (Mass) < 0.5 ng/mL (0.0-3.6) Creatine Kinase MB Relative Index % (0-4) Troponin I Quantitative 0.023 ng/mL (0.000-0.055) HK-Nfb-B-Type Natriuretic Peptide 1440 pg/mL (0-124) Total Protein 8.0 g/dL (6.4-8.2) Albumin 3.0 g/dL (3.4-5.0) Albumin/Globulin Ratio 0.6 (1.0-1.7) Lipase 61 U/L (73-393) Laboratory Tests Test 01/28/17 12:30 White Blood Count 8.0 x10^3/uL (4.0-11.0) Red Blood Count 4.50 x10^6/uL (3.50-5.40) Hemoglobin 12.0 g/dL (12.0-15.5) Hematocrit 38.1 % (36.0-47.0) Mean Corpuscular Volume 85 fL (79-100) Mean Corpuscular Hemoglobin 27 pg (25-35) Mean Corpuscular Hemoglobin Concent 32 g/dL (31-37) Red Cell Distribution Width 15.7 % (11.5-14.5) Platelet Count 305 x10^3/uL (140-400) Neutrophils (%) (Auto) 81 % (31-73) Lymphocytes (%) (Auto) 12 % (24-48) Monocytes (%) (Auto) 6 % (0-9) Eosinophils (%) (Auto) 0 % (0-3) Basophils (%) (Auto) 1 % (0-3) Neutrophils # (Auto) 6.4 x10^3uL (1.8-7.7) Lymphocytes # (Auto) 1.0 x10^3/uL (1.0-4.8) Monocytes # (Auto) 0.5 x10^3/uL (0.0-1.1) Eosinophils # (Auto) 0.0 x10^3/uL (0.0-0.7) Basophils # (Auto) 0.0 x10^3/uL (0.0-0.2) Sodium Level 139 mmol/L (136-145) Potassium Level 4.3 mmol/L (3.5-5.1) Chloride Level 98 mmol/L (98-107) Carbon Dioxide Level 40 mmol/L (21-32) Anion Gap 1 (6-14) Blood Urea Nitrogen 11 mg/dL (7-20) Creatinine 0.8 mg/dL (0.6-1.0) Estimated GFR (Cockcroft-Gault) 87.7 BUN/Creatinine Ratio 14 (6-20) Glucose Level 168 mg/dL (70-99) Calcium Level 9.4 mg/dL (8.5-10.1) Magnesium Level 1.9 mg/dL (1.8-2.4) Total Bilirubin 0.4 mg/dL (0.2-1.0) Aspartate Amino Transf (AST/SGOT) 17 U/L (15-37) Alanine Aminotransferase (ALT/SGPT) 22 U/L (14-59) Alkaline Phosphatase 108 U/L (46-116) Creatine Kinase 49 U/L (26-192) Creatine Kinase MB (Mass) < 0.5 ng/mL (0.0-3.6) Creatine Kinase MB Relative Index % (0-4) Troponin I Quantitative 0.023 ng/mL (0.000-0.055) IQ-Qng-D-Type Natriuretic Peptide 1440 pg/mL (0-124) Total Protein 8.0 g/dL (6.4-8.2) Albumin 3.0 g/dL (3.4-5.0) Albumin/Globulin Ratio 0.6 (1.0-1.7) Lipase 61 U/L (73-393) Assessment/Plan Assessment/Plan This patient comes in with a hypertensive emergency which is causing her to be very short of breath. I would recommend to start her on a Cardene drip to control her blood pressure and in addition to that I would like to increase her home medications. The metoprolol I would like to increase to 50 mg by mouth twice a day. I would like to add losartan 100 mg by mouth every morning. Continue with a Cardene drip until tomorrow and then wean it off in the morning. Thank you very much for asking me to participate in the care of this patient LIZBET LINDSAY MD Jan 28, 2017 16:55
[2017-01-28] MEDS: INSULIN ASPART 300 UNITS/3 ML INSULN.PEN SQ SCH ×2 (18:11→18:12)
[2017-01-28] MEDS: ATORVASTATIN CALCIUM 20 MG TABLET PO SCH (20:49)
[2017-01-28] MEDS: INSULIN DETEMIR 300 UNITS/3 ML INSULN.PEN. SQ SCH (20:50)
[2017-01-28] MEDS: METOPROLOL TART IMMED RELEASE 50 MG TABLET. PO SCH (20:50)
[2017-01-28] MEDS: FAMOTIDINE 20 MG TABLET. PO SCH (20:50)
[2017-01-28] MEDS ORDERED: METOPROLOL TART IMMED RELEASE 25 MG TABLET. PO SCH (21:00)
[2017-01-29] VITALS (15 sets, daily range): BP systolic 64–165; BP diastolic 42–67
[2017-01-29 01:45] LABS: BASO # 0.1 x10^3/uL (0.0-0.2); BASO % 1 % (0-3); EOS % 1 % (0-3); HEMATOCRIT 34.6 % (36.0-47.0); HEMOGLOBIN 10.8 g/dL (12.0-15.5); LYMPH % 23 % (24-48); MEAN CORPUSCULAR HEMOGLOBIN 27 pg (25-35); MEAN CORPUSCULAR HGB CONC 31 g/dL (31-37); MEAN CORPUSCULAR VOLUME 85 fL (79-100); MONO % 8 % (0-9); NEUT % 68 % (31-73); PLATELET COUNT 298 x10^3/uL (140-400); RED BLOOD COUNT 4.06 x10^6/uL (3.50-5.40); WHITE BLOOD COUNT 8.5 x10^3/uL (4.0-11.0)
[2017-01-29 02:01] LABS: CALCIUM 8.6 mg/dL (8.5-10.1); CREATININE 1.2 mg/dL (0.6-1.0); GFR 54.9; POTASSIUM 3.9 mmol/L (3.5-5.1)
[2017-01-29] MEDS: oxyCODONE/APAP 10/325 1 TAB TABLET PO PRN ×3 (04:33→18:01)
[2017-01-29] MEDS: INSULIN ASPART 300 UNITS/3 ML INSULN.PEN SQ SCH ×6 (08:00→17:00)
[2017-01-29] MEDS: CLOPIDOGREL BISULFATE 75 MG TABLET PO SCH (08:01)
[2017-01-29] MEDS: FERROUS SULFATE 325 MG TABLET. PO SCH (08:01)
[2017-01-29] MEDS: ASPIRIN ENTERIC COATED 81 MG TABLET.DR. PO SCH (08:01)
[2017-01-29] MEDS: FAMOTIDINE 20 MG TABLET. PO SCH ×2 (08:01→21:07)
[2017-01-29] MEDS: FUROSEMIDE 80 MG TABLET. PO SCH ×2 (08:02→16:10)
[2017-01-29] MEDS: fentaNYL PF VIAL 100 MCG/2 ML VIAL IV PRN (08:02)
[2017-01-29] MEDS: POTASSIUM CHLORIDE 10 MEQ TABLET.ER. PO SCH ×2 (08:02→18:00)
[2017-01-29] MEDS: LOSARTAN POTASSIUM 50 MG TABLET. PO SCH (08:08)
[2017-01-29] MEDS: METOPROLOL TART IMMED RELEASE 50 MG TABLET. PO SCH ×2 (08:40→21:00)
[2017-01-29] MEDS: INSULIN DETEMIR 300 UNITS/3 ML INSULN.PEN. SQ SCH ×2 (08:40→21:10)
--- NOTE | 2017-01-29 09:55 | PDOC ---
PROGRESS NOTES Subjective Subjective Mrs. Laguna was eating breakfast when I entered, and she stated that her appetite was pretty good. She still had a 6/10 chest pain/pressure, but that was improved from yesterday. Objective Objective Vital Signs Date Time Temp Pulse Resp B/P (MAP) Pulse Ox O2 Delivery O2 Flow Rate FiO2 01/29/17 09:00 55 18 113/63 (80) 97 Nasal Cannula 3.0 01/29/17 07:00 98.6 98.6 Intake and Output 01/30/17 07:00 Intake Total 200 ml Output Total 100 ml Balance 100 ml Intake Oral 200 ml Output Urine Total 100 ml Assessment Assessment Problems Medical Problems: (1) Congestive heart failure Status: Acute (2) Coronary artery disease Status: Acute (3) Malignant hypertension Status: Acute Plan Plan of Care Mrs. Laguna is a 62 year old female with a PMH of CAD, CHF , HTN, and a heart catheterization done 3 months ago, post -CABG, with a hypertensive emergency which caused shortness of breath. Assessment and Plan * Malignant hypertension: improved with cardene drip, and metoprolol and losartan. Continue medical management. * Patient is stable enough to be moved to the second floor, cardiac care. Comment Review of Relevant I have reviewed the following items nolan (where applicable) has been applied. Labs Laboratory Tests Test 01/28/17 12:30 01/28/17 15:30 01/28/17 18:08 01/28/17 19:15 White Blood Count 8.0 x10^3/uL (4.0-11.0) Red Blood Count 4.50 x10^6/uL (3.50-5.40) Hemoglobin 12.0 g/dL (12.0-15.5) Hematocrit 38.1 % (36.0-47.0) Mean Corpuscular Volume 85 fL (79-100) Mean Corpuscular Hemoglobin 27 pg (25-35) Mean Corpuscular Hemoglobin Concent 32 g/dL (31-37) Red Cell Distribution Width 15.7 % (11.5-14.5) Platelet Count 305 x10^3/uL (140-400) Neutrophils (%) (Auto) 81 % (31-73) Lymphocytes (%) (Auto) 12 % (24-48) Monocytes (%) (Auto) 6 % (0-9) Eosinophils (%) (Auto) 0 % (0-3) Basophils (%) (Auto) 1 % (0-3) Neutrophils # (Auto) 6.4 x10^3uL (1.8-7.7) Lymphocytes # (Auto) 1.0 x10^3/uL (1.0-4.8) Monocytes # (Auto) 0.5 x10^3/uL (0.0-1.1) Eosinophils # (Auto) 0.0 x10^3/uL (0.0-0.7) Basophils # (Auto) 0.0 x10^3/uL (0.0-0.2) Sodium Level 139 mmol/L (136-145) Potassium Level 4.3 mmol/L (3.5-5.1) Chloride Level 98 mmol/L (98-107) Carbon Dioxide Level 40 mmol/L (21-32) Anion Gap 1 (6-14) Blood Urea Nitrogen 11 mg/dL (7-20) Creatinine 0.8 mg/dL (0.6-1.0) Estimated GFR (Cockcroft-Gault) 87.7 BUN/Creatinine Ratio 14 (6-20) Glucose Level 168 mg/dL (70-99) Hemoglobin A1c 7.4 % (4.8-5.6) Calcium Level 9.4 mg/dL (8.5-10.1) Magnesium Level 1.9 mg/dL (1.8-2.4) Total Bilirubin 0.4 mg/dL (0.2-1.0) Aspartate Amino Transf (AST/SGOT) 17 U/L (15-37) Alanine Aminotransferase (ALT/SGPT) 22 U/L (14-59) Alkaline Phosphatase 108 U/L (46-116) Creatine Kinase 49 U/L (26-192) Creatine Kinase MB (Mass) < 0.5 ng/mL (0.0-3.6) Creatine Kinase MB Relative Index % (0-4) Troponin I Quantitative 0.023 ng/mL (0.000-0.055) 0.024 ng/mL (0.000-0.055) YN-Vig-U-Type Natriuretic Peptide 1440 pg/mL (0-124) Total Protein 8.0 g/dL (6.4-8.2) Albumin 3.0 g/dL (3.4-5.0) Albumin/Globulin Ratio 0.6 (1.0-1.7) Lipase 61 U/L (73-393) Nasal Screen MRSA (PCR) Negative (Negative) Glucose (Fingerstick) 199 mg/dL (70-99) Test 01/28/17 20:49 01/29/17 01:26 01/29/17 08:10 Glucose (Fingerstick) 127 mg/dL (70-99) 134 mg/dL (70-99) White Blood Count 8.5 x10^3/uL (4.0-11.0) Red Blood Count 4.06 x10^6/uL (3.50-5.40) Hemoglobin 10.8 g/dL (12.0-15.5) Hematocrit 34.6 % (36.0-47.0) Mean Corpuscular Volume 85 fL (79-100) Mean Corpuscular Hemoglobin 27 pg (25-35) Mean Corpuscular Hemoglobin Concent 31 g/dL (31-37) Red Cell Distribution Width 16.0 % (11.5-14.5) Platelet Count 298 x10^3/uL (140-400) Neutrophils (%) (Auto) 68 % (31-73) Lymphocytes (%) (Auto) 23 % (24-48) Monocytes (%) (Auto) 8 % (0-9) Eosinophils (%) (Auto) 1 % (0-3) Basophils (%) (Auto) 1 % (0-3) Neutrophils # (Auto) 5.8 x10^3uL (1.8-7.7) Lymphocytes # (Auto) 2.0 x10^3/uL (1.0-4.8) Monocytes # (Auto) 0.7 x10^3/uL (0.0-1.1) Eosinophils # (Auto) 0.1 x10^3/uL (0.0-0.7) Basophils # (Auto) 0.1 x10^3/uL (0.0-0.2) Sodium Level 143 mmol/L (136-145) Potassium Level 3.9 mmol/L (3.5-5.1) Chloride Level 101 mmol/L (98-107) Carbon Dioxide Level 40 mmol/L (21-32) Anion Gap 2 (6-14) Blood Urea Nitrogen 18 mg/dL (7-20) Creatinine 1.2 mg/dL (0.6-1.0) Estimated GFR (Cockcroft-Gault) 54.9 Glucose Level 136 mg/dL (70-99) Calcium Level 8.6 mg/dL (8.5-10.1) Troponin I Quantitative 0.043 ng/mL (0.000-0.055) Laboratory Tests Test 01/28/17 12:30 01/28/17 15:30 01/28/17 18:08 01/28/17 19:15 White Blood Count 8.0 x10^3/uL (4.0-11.0) Red Blood Count 4.50 x10^6/uL (3.50-5.40) Hemoglobin 12.0 g/dL (12.0-15.5) Hematocrit 38.1 % (36.0-47.0) Mean Corpuscular Volume 85 fL (79-100) Mean Corpuscular Hemoglobin 27 pg (25-35) Mean Corpuscular Hemoglobin Concent 32 g/dL (31-37) Red Cell Distribution Width 15.7 % (11.5-14.5) Platelet Count 305 x10^3/uL (140-400) Neutrophils (%) (Auto) 81 % (31-73) Lymphocytes (%) (Auto) 12 % (24-48) Monocytes (%) (Auto) 6 % (0-9) Eosinophils (%) (Auto) 0 % (0-3) Basophils (%) (Auto) 1 % (0-3) Neutrophils # (Auto) 6.4 x10^3uL (1.8-7.7) Lymphocytes # (Auto) 1.0 x10^3/uL (1.0-4.8) Monocytes # (Auto) 0.5 x10^3/uL (0.0-1.1) Eosinophils # (Auto) 0.0 x10^3/uL (0.0-0.7) Basophils # (Auto) 0.0 x10^3/uL (0.0-0.2) Sodium Level 139 mmol/L (136-145) Potassium Level 4.3 mmol/L (3.5-5.1) Chloride Level 98 mmol/L (98-107) Carbon Dioxide Level 40 mmol/L (21-32) Anion Gap 1 (6-14) Blood Urea Nitrogen 11 mg/dL (7-20) Creatinine 0.8 mg/dL (0.6-1.0) Estimated GFR (Cockcroft-Gault) 87.7 BUN/Creatinine Ratio 14 (6-20) Glucose Level 168 mg/dL (70-99) Hemoglobin A1c 7.4 % (4.8-5.6) Calcium Level 9.4 mg/dL (8.5-10.1) Magnesium Level 1.9 mg/dL (1.8-2.4) Total Bilirubin 0.4 mg/dL (0.2-1.0) Aspartate Amino Transf (AST/SGOT) 17 U/L (15-37) Alanine Aminotransferase (ALT/SGPT) 22 U/L (14-59) Alkaline Phosphatase 108 U/L (46-116) Creatine Kinase 49 U/L (26-192) Creatine Kinase MB (Mass) < 0.5 ng/mL (0.0-3.6) Creatine Kinase MB Relative Index % (0-4) Troponin I Quantitative 0.023 ng/mL (0.000-0.055) 0.024 ng/mL (0.000-0.055) YU-Xzl-U-Type Natriuretic Peptide 1440 pg/mL (0-124) Total Protein 8.0 g/dL (6.4-8.2) Albumin 3.0 g/dL (3.4-5.0) Albumin/Globulin Ratio 0.6 (1.0-1.7) Lipase 61 U/L (73-393) Nasal Screen MRSA (PCR) Negative (Negative) Glucose (Fingerstick) 199 mg/dL (70-99) Test 01/28/17 20:49 01/29/17 01:26 01/29/17 08:10 Glucose (Fingerstick) 127 mg/dL (70-99) 134 mg/dL (70-99) White Blood Count 8.5 x10^3/uL (4.0-11.0) Red Blood Count 4.06 x10^6/uL (3.50-5.40) Hemoglobin 10.8 g/dL (12.0-15.5) Hematocrit 34.6 % (36.0-47.0) Mean Corpuscular Volume 85 fL (79-100) Mean Corpuscular Hemoglobin 27 pg (25-35) Mean Corpuscular Hemoglobin Concent 31 g/dL (31-37) Red Cell Distribution Width 16.0 % (11.5-14.5) Platelet Count 298 x10^3/uL (140-400) Neutrophils (%) (Auto) 68 % (31-73) Lymphocytes (%) (Auto) 23 % (24-48) Monocytes (%) (Auto) 8 % (0-9) Eosinophils (%) (Auto) 1 % (0-3) Basophils (%) (Auto) 1 % (0-3) Neutrophils # (Auto) 5.8 x10^3uL (1.8-7.7) Lymphocytes # (Auto) 2.0 x10^3/uL (1.0-4.8) Monocytes # (Auto) 0.7 x10^3/uL (0.0-1.1) Eosinophils # (Auto) 0.1 x10^3/uL (0.0-0.7) Basophils # (Auto) 0.1 x10^3/uL (0.0-0.2) Sodium Level 143 mmol/L (136-145) Potassium Level 3.9 mmol/L (3.5-5.1) Chloride Level 101 mmol/L (98-107) Carbon Dioxide Level 40 mmol/L (21-32) Anion Gap 2 (6-14) Blood Urea Nitrogen 18 mg/dL (7-20) Creatinine 1.2 mg/dL (0.6-1.0) Estimated GFR (Cockcroft-Gault) 54.9 Glucose Level 136 mg/dL (70-99) Calcium Level 8.6 mg/dL (8.5-10.1) Troponin I Quantitative 0.043 ng/mL (0.000-0.055) Medications Current Medications Fentanyl Citrate (Fentanyl 2ml Vial) 50 mcg PRN Q15MIN PRN IV PAIN GREATER THAN 3/10 Last administered on 01/29/17 08:02; Start 01/28/17 at 12:30; Stop 01/29/17 at 12:29 Sodium Chloride 1,000 ml @ 125 mls/hr Q8H IV Last administered on 01/28/17 13 :05; Start 01/28/17 at 12:21; Stop 01/28/17 at 20:20; Status DC Ondansetron HCl (Zofran) 4 mg 1X ONCE IV Last administered on 01/28/17 13:05 ; Start 01/28/17 at 12:30; Stop 01/28/17 at 12:31; Status DC Labetalol HCl (Normodyne) 20 mg 1X ONCE IVP Last administered on 01/28/17 13: 07; Start 01/28/17 at 12:30; Stop 01/28/17 at 12:33; Status DC Nicardipine HCl 50 mg/Sodium Chloride 270 ml @ 0 mls/hr CONT PRN IV SEE I/O RECORD Last administered on 01/28/17 13:33; Start 01/28/17 at 13:15 Ondansetron HCl (Zofran) 4 mg PRN Q8HRS PRN IV NAUSEA/VOMITING; Start 01/28/17 at 13:30; Stop 01/28/17 at 14:14; Status DC Fentanyl Citrate (Fentanyl 2ml Vial) 50 mcg PRN Q2HR PRN IV PAIN Last administered on 01/28/17 20:06; Start 01/28/17 at 13:30; Stop 01/29/17 at 13:29 Sodium Chloride 1,000 ml @ 0 mls/hr Q0M IV ; Start 01/28/17 at 13:29; Stop 01/29/17 at 13:28 Acetaminophen (Tylenol) 650 mg PRN Q4HRS PRN PO FEVER; Start 01/28/17 at 13:30 ; Stop 01/29/17 at 13:29 Ondansetron HCl (Zofran) 4 mg PRN Q6HRS PRN IV NAUSEA/VOMITING; Start 01/28/17 at 14:15; Stop 01/29/17 at 14:14 Acetaminophen (Tylenol) 500 mg PRN Q6HRS PRN PO MILD PAIN / TEMP; Start at 14:15 Ibuprofen (Motrin) 600 mg PRN Q6HRS PRN PO INFLAMMATION; Start 01/28/17 at 14: 15 Diphenhydramine HCl (Benadryl) 25 mg PRN QHS PRN PO INSOMNIA; Start 01/28/17 at 14:15 Aspirin (Ecotrin) 81 mg DAILY PO Last administered on 01/29/17 08:01; Start 01/29/17 at 09:00 Atorvastatin Calcium (Lipitor) 20 mg HS PO Last administered on 01/28/17 20:49 ; Start 01/28/17 at 21:00 Clopidogrel Bisulfate (Plavix) 75 mg DAILY PO Last administered on 01/29/17 08 :01; Start 01/29/17 at 09:00 Famotidine (Pepcid) 20 mg BID PO Last administered on 01/29/17 08:01; Start 01/28/17 at 21:00 Ferrous Sulfate (Feosol) 325 mg DAILY PO Last administered on 01/29/17 08:01; Start 01/29/17 at 09:00 Furosemide (Lasix) 80 mg BID92 PO Last administered on 01/29/17 08:02; Start 01/28/17 at 15:00 Insulin Aspart (NovoLOG) 20 units TIDWMEALS SQ Last administered on 01/29/17 08:12; Start 01/28/17 at 17:00 Insulin Detemir (Levemir) 32 units BID SQ Last administered on 01/29/17 08:40 ; Start 01/28/17 at 21:00 Metoprolol Tartrate (Lopressor) 25 mg BID PO ; Start 01/28/17 at 21:00; Stop at 21:00; Status DC Nitroglycerin (Nitrostat) 0.4 mg PRN Q5MIN PRN SL CHEST PAIN; Start 01/28/17 at 14:15 Oxycodone/ Acetaminophen (Percocet 10/325) 1 tab PRN QID PRN PO PAIN; Start at 14:15 Oxycodone/ Acetaminophen (Percocet 10/325) 2 tab PRN Q6HRS PRN PO PAIN Last administered on 01/29/17 04:33; Start 01/28/17 at 14:15 Potassium Chloride (Klor-Con) 10 meq BIDWMEALS PO Last administered on 08:02; Start 01/28/17 at 17:00 Insulin Aspart (NovoLOG) 0-9 UNITS TIDWMEALS SQ Last administered on 01/28/17 18:12; Start 01/28/17 at 17:00 Dextrose (Dextrose 50%-Water Syringe) 12.5 gm PRN Q15MIN PRN IV SEE COMMENTS; Start 01/28/17 at 15:15 Losartan Potassium (Cozaar) 100 mg DAILY PO Last administered on 01/29/17 08: 08; Start 01/28/17 at 16:00 Metoprolol Tartrate (Lopressor) 50 mg BID PO Last administered on 01/29/17 08: 40; Start 01/28/17 at 21:00 Active Scripts Active Percocet 10-325 Mg Tablet (Oxycodone/Acetaminophen) 1 Each Tablet 1 Tab PO Q6- 8HRS PRN Lasix (Furosemide) 80 Mg Tablet 1 Tab PO BID Reported Metoprolol Tartrate 50 Mg Tablet 1 Tab PO BID Ferrous Sulfate 325 Mg Tablet 1 Tab PO DAILY NITROGLYCERIN SubLingual (Nitroglycerin) 0.4 Mg Tab.subl 0.4 Mg SL PRN Q5MIN PRN Percocet 10-325 Mg Tablet (Oxycodone/Acetaminophen) 1 Each Tablet 2 Tab PO PRN Q6HRS PRN Levemir Flextouch (Insulin Detemir) 100 Unit/1 Ml Insuln.pen 32 Unit SQ BID Novolog Flexpen (Insulin Aspart) 100 Unit/1 Ml Insuln.pen 20 Unit SQ TIDWMEALS Atorvastatin Calcium 20 Mg Tablet 20 Mg PO HS Potassium Chloride 10 Meq Capsule.er 10 Meq PO BID Aspir 81 (Aspirin) 81 Mg Tablet. 1 Tab PO DAILY Clopidogrel (Clopidogrel Bisulfate) 75 Mg Tablet 1 Tab PO DAILY Famotidine 20 Mg Tablet 20 Mg PO BID Vitals/I & O Vital Sign - Last 24 Hours 01/28/17 01/28/17 01/28/17 01/28/17 12:15 13:00 13:06 13:07 Temp 98.8 98.8 Pulse 88 76 81 Resp 20 18 B/P (MAP) 212/98 (136) 241/114 (156) 241/114 Pulse Ox 98 O2 Delivery Room Air Room Air 01/28/17 01/28/17 01/28/17 01/28/17 13:12 13:15 13:25 13:31 Pulse 56 57 67 Resp 18 18 B/P (MAP) 180/68 (105) 145/63 (90) 169/70 (103) Pulse Ox 96 100 99 O2 Delivery Nasal Cannula Nasal Cannula Nasal Cannula O2 Flow Rate 3.0 3.0 3.0 01/28/17 01/28/17 01/28/17 01/28/17 13:45 14:00 14:15 14:36 Pulse 71 58 64 58 Resp 20 18 19 18 B/P (MAP) 149/69 (95) 140/63 (88) 134/62 (86) 118/60 (79) Pulse Ox 100 100 100 100 O2 Delivery Nasal Cannula Nasal Cannula Nasal Cannula Nasal Cannula O2 Flow Rate 3.0 3.0 3.0 3.0 01/28/17 01/28/17 01/28/17 01/28/17 14:37 15:00 15:20 15:53 Temp 99.5 99.5 Pulse 68 Resp 20 12 B/P (MAP) 115/62 (79) Pulse Ox 98 98 O2 Delivery Nasal Cannula Nasal Cannula O2 Flow Rate 3.0 3.0 3.0 01/28/17 01/28/17 01/28/17 01/28/17 15:58 16:00 16:00 17:00 Pulse 68 80 74 Resp 25 22 B/P (MAP) 150/64 156/79 (104) 168/86 (113) Pulse Ox 96 93 O2 Delivery Nasal Cannula Nasal Cannula Nasal Cannula O2 Flow Rate 3.0 3.0 2.0 01/28/17 01/28/17 01/28/17 01/28/17 18:00 18:50 20:00 20:00 Temp 98.8 98.8 Pulse 88 56 62 Resp 25 19 22 B/P (MAP) 139/59 (85) 128/69 (88) 105/59 (74) Pulse Ox 94 94 94 O2 Delivery Nasal Cannula Nasal Cannula Nasal Cannula Nasal Cannula O2 Flow Rate 3.0 3.0 3.0 3.0 01/28/17 01/28/17 01/28/17 01/28/17 20:06 20:36 20:50 21:00 Pulse 75 74 Resp 20 16 21 B/P (MAP) 198/79 191/66 (107) Pulse Ox 97 98 O2 Delivery Nasal Cannula Nasal Cannula Nasal Cannula O2 Flow Rate 3.0 3.0 3.0 01/28/17 01/28/17 01/28/17 01/28/17 21:30 22:00 22:08 23:00 Pulse 58 60 52 Resp 19 22 23 19 B/P (MAP) 184/71 (108) 118/58 (78) 131/62 (85) Pulse Ox 98 98 97 97 O2 Delivery Nasal Cannula Nasal Cannula Nasal Cannula Nasal Cannula O2 Flow Rate 3.0 3.0 3.0 3.0 01/28/17 01/29/17 01/29/17 01/29/17 23:46 00:00 01:00 02:00 Temp 98.9 98.9 Pulse 50 48 49 Resp 14 16 16 B/P (MAP) 93/51 (65) 93/45 (61) 96/45 (62) Pulse Ox 97 97 95 O2 Delivery Nasal Cannula Nasal Cannula Nasal Cannula Nasal Cannula O2 Flow Rate 3.0 3.0 3.0 3.0 01/29/17 01/29/17 01/29/17 01/29/17 03:00 04:00 04:00 04:33 Temp 98.9 98.9 Pulse 48 53 Resp 20 17 21 B/P (MAP) 101/48 (65) 118/67 (84) Pulse Ox 99 100 98 O2 Delivery Nasal Cannula Nasal Cannula Nasal Cannula Nasal Cannula O2 Flow Rate 3.0 3.0 3.0 3.0 01/29/17 01/29/17 01/29/17 01/29/17 05:00 05:33 06:00 07:00 Temp 98.6 98.6 Pulse 60 46 51 Resp 16 16 19 18 B/P (MAP) 95/46 (62) 107/49 (68) 125/49 (74) Pulse Ox 99 98 97 99 O2 Delivery Nasal Cannula Nasal Cannula Nasal Cannula Nasal Cannula O2 Flow Rate 3.0 3.0 3.0 3.0 01/29/17 01/29/17 01/29/17 01/29/17 08:00 08:00 08:02 08:08 Pulse 53 54 Resp 19 20 B/P (MAP) 165/63 (97) 165/63 Pulse Ox 99 96 O2 Delivery Nasal Cannula Nasal Cannula Nasal Cannula O2 Flow Rate 3.0 3.0 01/29/17 01/29/17 01/29/17 08:32 08:40 09:00 Pulse 60 55 Resp 20 18 B/P (MAP) 165/63 113/63 (80) Pulse Ox 96 97 O2 Delivery Nasal Cannula Nasal Cannula O2 Flow Rate 3.0 3.0 Intake and Output 01/29/17 01/29/17 01/30/17 15:00 23:00 07:00 Intake Total 200 ml Output Total 100 ml Balance 100 ml LIZBET LINDSAY MD Jan 29, 2017 09:55
--- NOTE | 2017-01-29 13:29 | PDOC ---
PROGRESS NOTES Chief Complaint Chief Complaint HTN emergency POA CP + SOB; unresolved with ASA (x4) + subling nitro (x2) DM 2 Obesity BMI 41 History of Present Illness History of Present Illness Pt seen at bedside in ICU. Eating lunch and in NAD. BP has continued to decrease following admission with malignant HTN. Most recent reading this morning was 99/64. Agree with supervisor chassis assembly input and plan of care. Transfer to cardiac floor likely today or tomorrow. Vitals Vitals Vital Signs Date Time Temp Pulse Resp B/P (MAP) Pulse Ox O2 Delivery O2 Flow Rate FiO2 01/29/17 12:03 17 98 Nasal Cannula 3.0 01/29/17 11:00 45 112/63 (79) 01/29/17 07:00 98.6 98.6 Physical Exam General: Alert, Oriented X3, Cooperative Heart: Other (regular rate and rhythm S1-S2, 2/6 systolic murmur.) Lungs: Clear Abdomen: Normal bowel sounds, Soft Extremities: Other (1+ edema) Skin: No rashes, No breakdown, No significant lesion Labs LABS Laboratory Tests Test 01/28/17 15:30 01/28/17 18:08 01/28/17 19:15 01/28/17 20:49 Nasal Screen MRSA (PCR) Negative (Negative) Glucose (Fingerstick) 199 mg/dL (70-99) 127 mg/dL (70-99) Troponin I Quantitative 0.024 ng/mL (0.000-0.055) Test 01/29/17 01:26 01/29/17 08:10 01/29/17 11:57 White Blood Count 8.5 x10^3/uL (4.0-11.0) Red Blood Count 4.06 x10^6/uL (3.50-5.40) Hemoglobin 10.8 g/dL (12.0-15.5) Hematocrit 34.6 % (36.0-47.0) Mean Corpuscular Volume 85 fL (79-100) Mean Corpuscular Hemoglobin 27 pg (25-35) Mean Corpuscular Hemoglobin Concent 31 g/dL (31-37) Red Cell Distribution Width 16.0 % (11.5-14.5) Platelet Count 298 x10^3/uL (140-400) Neutrophils (%) (Auto) 68 % (31-73) Lymphocytes (%) (Auto) 23 % (24-48) Monocytes (%) (Auto) 8 % (0-9) Eosinophils (%) (Auto) 1 % (0-3) Basophils (%) (Auto) 1 % (0-3) Neutrophils # (Auto) 5.8 x10^3uL (1.8-7.7) Lymphocytes # (Auto) 2.0 x10^3/uL (1.0-4.8) Monocytes # (Auto) 0.7 x10^3/uL (0.0-1.1) Eosinophils # (Auto) 0.1 x10^3/uL (0.0-0.7) Basophils # (Auto) 0.1 x10^3/uL (0.0-0.2) Sodium Level 143 mmol/L (136-145) Potassium Level 3.9 mmol/L (3.5-5.1) Chloride Level 101 mmol/L (98-107) Carbon Dioxide Level 40 mmol/L (21-32) Anion Gap 2 (6-14) Blood Urea Nitrogen 18 mg/dL (7-20) Creatinine 1.2 mg/dL (0.6-1.0) Estimated GFR (Cockcroft-Gault) 54.9 Glucose Level 136 mg/dL (70-99) Calcium Level 8.6 mg/dL (8.5-10.1) Troponin I Quantitative 0.043 ng/mL (0.000-0.055) Glucose (Fingerstick) 134 mg/dL (70-99) 159 mg/dL (70-99) Review of Systems Review of Systems Pt AOCx3. In NAD. Denies CP at this time. Denies SOB. Denies abd. pain or changes in bowel function. Lungs CTAB. Assessment and Plan Assessmemt and Plan Problems Medical Problems: (1) Congestive heart failure Status: Acute (2) Coronary artery disease Status: Acute (3) Malignant hypertension Status: Acute HTN emergency POA CP + SOB; unresolved with ASA (x4) + subling nitro (x2) DM 2 Obesity BMI 41 PLAN: Agree with cardiology input COntinue meds per supervisor chassis assembly adjustment(s) Recheck labs PT/OT Transfer to CV floor when ok with subspecialist Problems: Comment Review of Relevant I have reviewed the following items nolan (where applicable) has been applied. Labs Laboratory Tests Test 11/7/17 12:30 01/28/17 15:30 01/28/17 18:08 01/28/17 19:15 White Blood Count 8.0 x10^3/uL (4.0-11.0) Red Blood Count 4.50 x10^6/uL (3.50-5.40) Hemoglobin 12.0 g/dL (12.0-15.5) Hematocrit 38.1 % (36.0-47.0) Mean Corpuscular Volume 85 fL (79-100) Mean Corpuscular Hemoglobin 27 pg (25-35) Mean Corpuscular Hemoglobin Concent 32 g/dL (31-37) Red Cell Distribution Width 15.7 % (11.5-14.5) Platelet Count 305 x10^3/uL (140-400) Neutrophils (%) (Auto) 81 % (31-73) Lymphocytes (%) (Auto) 12 % (24-48) Monocytes (%) (Auto) 6 % (0-9) Eosinophils (%) (Auto) 0 % (0-3) Basophils (%) (Auto) 1 % (0-3) Neutrophils # (Auto) 6.4 x10^3uL (1.8-7.7) Lymphocytes # (Auto) 1.0 x10^3/uL (1.0-4.8) Monocytes # (Auto) 0.5 x10^3/uL (0.0-1.1) Eosinophils # (Auto) 0.0 x10^3/uL (0.0-0.7) Basophils # (Auto) 0.0 x10^3/uL (0.0-0.2) Sodium Level 139 mmol/L (136-145) Potassium Level 4.3 mmol/L (3.5-5.1) Chloride Level 98 mmol/L (98-107) Carbon Dioxide Level 40 mmol/L (21-32) Anion Gap 1 (6-14) Blood Urea Nitrogen 11 mg/dL (7-20) Creatinine 0.8 mg/dL (0.6-1.0) Estimated GFR (Cockcroft-Gault) 87.7 BUN/Creatinine Ratio 14 (6-20) Glucose Level 168 mg/dL (70-99) Hemoglobin A1c 7.4 % (4.8-5.6) Calcium Level 9.4 mg/dL (8.5-10.1) Magnesium Level 1.9 mg/dL (1.8-2.4) Total Bilirubin 0.4 mg/dL (0.2-1.0) Aspartate Amino Transf (AST/SGOT) 17 U/L (15-37) Alanine Aminotransferase (ALT/SGPT) 22 U/L (14-59) Alkaline Phosphatase 108 U/L (46-116) Creatine Kinase 49 U/L (26-192) Creatine Kinase MB (Mass) < 0.5 ng/mL (0.0-3.6) Creatine Kinase MB Relative Index % (0-4) Troponin I Quantitative 0.023 ng/mL (0.000-0.055) 0.024 ng/mL (0.000-0.055) IZ-Rxe-H-Type Natriuretic Peptide 1440 pg/mL (0-124) Total Protein 8.0 g/dL (6.4-8.2) Albumin 3.0 g/dL (3.4-5.0) Albumin/Globulin Ratio 0.6 (1.0-1.7) Lipase 61 U/L (73-393) Nasal Screen MRSA (PCR) Negative (Negative) Glucose (Fingerstick) 199 mg/dL (70-99) Test 01/28/17 20:49 01/29/17 01:26 01/29/17 08:10 01/29/17 11:57 Glucose (Fingerstick) 127 mg/dL (70-99) 134 mg/dL (70-99) 159 mg/dL (70-99) White Blood Count 8.5 x10^3/uL (4.0-11.0) Red Blood Count 4.06 x10^6/uL (3.50-5.40) Hemoglobin 10.8 g/dL (12.0-15.5) Hematocrit 34.6 % (36.0-47.0) Mean Corpuscular Volume 85 fL (79-100) Mean Corpuscular Hemoglobin 27 pg (25-35) Mean Corpuscular Hemoglobin Concent 31 g/dL (31-37) Red Cell Distribution Width 16.0 % (11.5-14.5) Platelet Count 298 x10^3/uL (140-400) Neutrophils (%) (Auto) 68 % (31-73) Lymphocytes (%) (Auto) 23 % (24-48) Monocytes (%) (Auto) 8 % (0-9) Eosinophils (%) (Auto) 1 % (0-3) Basophils (%) (Auto) 1 % (0-3) Neutrophils # (Auto) 5.8 x10^3uL (1.8-7.7) Lymphocytes # (Auto) 2.0 x10^3/uL (1.0-4.8) Monocytes # (Auto) 0.7 x10^3/uL (0.0-1.1) Eosinophils # (Auto) 0.1 x10^3/uL (0.0-0.7) Basophils # (Auto) 0.1 x10^3/uL (0.0-0.2) Sodium Level 143 mmol/L (136-145) Potassium Level 3.9 mmol/L (3.5-5.1) Chloride Level 101 mmol/L (98-107) Carbon Dioxide Level 40 mmol/L (21-32) Anion Gap 2 (6-14) Blood Urea Nitrogen 18 mg/dL (7-20) Creatinine 1.2 mg/dL (0.6-1.0) Estimated GFR (Cockcroft-Gault) 54.9 Glucose Level 136 mg/dL (70-99) Calcium Level 8.6 mg/dL (8.5-10.1) Troponin I Quantitative 0.043 ng/mL (0.000-0.055) Laboratory Tests Test 01/28/17 15:30 01/28/17 18:08 01/28/17 19:15 01/28/17 20:49 Nasal Screen MRSA (PCR) Negative (Negative) Glucose (Fingerstick) 199 mg/dL (70-99) 127 mg/dL (70-99) Troponin I Quantitative 0.024 ng/mL (0.000-0.055) Test 01/29/17 01:26 01/29/17 08:10 01/29/17 11:57 White Blood Count 8.5 x10^3/uL (4.0-11.0) Red Blood Count 4.06 x10^6/uL (3.50-5.40) Hemoglobin 10.8 g/dL (12.0-15.5) Hematocrit 34.6 % (36.0-47.0) Mean Corpuscular Volume 85 fL (79-100) Mean Corpuscular Hemoglobin 27 pg (25-35) Mean Corpuscular Hemoglobin Concent 31 g/dL (31-37) Red Cell Distribution Width 16.0 % (11.5-14.5) Platelet Count 298 x10^3/uL (140-400) Neutrophils (%) (Auto) 68 % (31-73) Lymphocytes (%) (Auto) 23 % (24-48) Monocytes (%) (Auto) 8 % (0-9) Eosinophils (%) (Auto) 1 % (0-3) Basophils (%) (Auto) 1 % (0-3) Neutrophils # (Auto) 5.8 x10^3uL (1.8-7.7) Lymphocytes # (Auto) 2.0 x10^3/uL (1.0-4.8) Monocytes # (Auto) 0.7 x10^3/uL (0.0-1.1) Eosinophils # (Auto) 0.1 x10^3/uL (0.0-0.7) Basophils # (Auto) 0.1 x10^3/uL (0.0-0.2) Sodium Level 143 mmol/L (136-145) Potassium Level 3.9 mmol/L (3.5-5.1) Chloride Level 101 mmol/L (98-107) Carbon Dioxide Level 40 mmol/L (21-32) Anion Gap 2 (6-14) Blood Urea Nitrogen 18 mg/dL (7-20) Creatinine 1.2 mg/dL (0.6-1.0) Estimated GFR (Cockcroft-Gault) 54.9 Glucose Level 136 mg/dL (70-99) Calcium Level 8.6 mg/dL (8.5-10.1) Troponin I Quantitative 0.043 ng/mL (0.000-0.055) Glucose (Fingerstick) 134 mg/dL (70-99) 159 mg/dL (70-99) Medications Current Medications Fentanyl Citrate (Fentanyl 2ml Vial) 50 mcg PRN Q15MIN PRN IV PAIN GREATER THAN 3/10 Last administered on 01/29/17t 08:02; Start 01/28/17 at 12:30; Stop 01/29/17 at 12:29; Status DC Sodium Chloride 1,000 ml @ 125 mls/hr Q8H IV Last administered on 01/28/17 13 :05; Start 01/28/17 at 12:21; Stop 01/28/17 at 20:20; Status DC Ondansetron HCl (Zofran) 4 mg 1X ONCE IV Last administered on 01/28/17 13:05 ; Start 01/28/17 at 12:30; Stop 01/28/17 at 12:31; Status DC Labetalol HCl (Normodyne) 20 mg 1X ONCE IVP Last administered on 01/28/17 13: 07; Start 01/28/17 at 12:30; Stop 01/28/17 at 12:33; Status DC Nicardipine HCl 50 mg/Sodium Chloride 270 ml @ 0 mls/hr CONT PRN IV SEE I/O RECORD Last administered on 01/28/17 13:33; Start 01/28/17 at 13:15 Ondansetron HCl (Zofran) 4 mg PRN Q8HRS PRN IV NAUSEA/VOMITING; Start 01/28/17 at 13:30; Stop 01/28/17 at 14:14; Status DC Fentanyl Citrate (Fentanyl 2ml Vial) 50 mcg PRN Q2HR PRN IV PAIN Last administered on 01/28/17 20:06; Start 01/28/17 at 13:30; Stop 01/29/17 at 13:29 Sodium Chloride 1,000 ml @ 0 mls/hr Q0M IV ; Start 01/28/17 at 13:29; Stop 01/29/17 at 13:28 Acetaminophen (Tylenol) 650 mg PRN Q4HRS PRN PO FEVER; Start 01/28/17 at 13:30 ; Stop 01/29/17 at 13:29 Ondansetron HCl (Zofran) 4 mg PRN Q6HRS PRN IV NAUSEA/VOMITING; Start 01/28/17 at 14:15; Stop 01/29/17 at 14:14 Acetaminophen (Tylenol) 500 mg PRN Q6HRS PRN PO MILD PAIN / TEMP; Start at 14:15 Ibuprofen (Motrin) 600 mg PRN Q6HRS PRN PO INFLAMMATION; Start 01/28/17 at 14: 15 Diphenhydramine HCl (Benadryl) 25 mg PRN QHS PRN PO INSOMNIA; Start 01/28/17 at 14:15 Aspirin (Ecotrin) 81 mg DAILY PO Last administered on 01/29/17 08:01; Start 01/29/17 at 09:00 Atorvastatin Calcium (Lipitor) 20 mg HS PO Last administered on 01/28/17 20:49 ; Start 01/28/17 at 21:00 Clopidogrel Bisulfate (Plavix) 75 mg DAILY PO Last administered on 01/29/17 08 :01; Start 01/29/17 at 09:00 Famotidine (Pepcid) 20 mg BID PO Last administered on 01/29/17 08:01; Start 01/28/17 at 21:00 Ferrous Sulfate (Feosol) 325 mg DAILY PO Last administered on 01/29/17 08:01; Start 01/29/17 at 09:00 Furosemide (Lasix) 80 mg BID92 PO Last administered on 01/29/17 08:02; Start 01/28/17 at 15:00 Insulin Aspart (NovoLOG) 20 units TIDWMEALS SQ Last administered on 01/29/17 12:28; Start 01/28/17 at 17:00 Insulin Detemir (Levemir) 32 units BID SQ Last administered on 01/29/17 08:40 ; Start 01/28/17 at 21:00 Metoprolol Tartrate (Lopressor) 25 mg BID PO ; Start 01/28/17 at 21:00; Stop at 21:00; Status DC Nitroglycerin (Nitrostat) 0.4 mg PRN Q5MIN PRN SL CHEST PAIN; Start 01/28/17 at 14:15 Oxycodone/ Acetaminophen (Percocet 10/325) 1 tab PRN QID PRN PO PAIN; Start at 14:15 Oxycodone/ Acetaminophen (Percocet 10/325) 2 tab PRN Q6HRS PRN PO PAIN Last administered on 01/29/17 11:03; Start 01/28/17 at 14:15 Potassium Chloride (Klor-Con) 10 meq BIDWMEALS PO Last administered on 08:02; Start 01/28/17 at 17:00 Insulin Aspart (NovoLOG) 0-9 UNITS TIDWMEALS SQ Last administered on 01/29/17 12:28; Start 01/28/17 at 17:00 Dextrose (Dextrose 50%-Water Syringe) 12.5 gm PRN Q15MIN PRN IV SEE COMMENTS; Start 01/28/17 at 15:15 Losartan Potassium (Cozaar) 100 mg DAILY PO Last administered on 01/29/17 08: 08; Start 01/28/17 at 16:00 Metoprolol Tartrate (Lopressor) 50 mg BID PO Last administered on 01/29/17 08: 40; Start 01/28/17 at 21:00 Active Scripts Active Percocet 10-325 Mg Tablet (Oxycodone/Acetaminophen) 1 Each Tablet 1 Tab PO Q6- 8HRS PRN Lasix (Furosemide) 80 Mg Tablet 1 Tab PO BID Reported Metoprolol Tartrate 50 Mg Tablet 1 Tab PO BID Ferrous Sulfate 325 Mg Tablet 1 Tab PO DAILY NITROGLYCERIN SubLingual (Nitroglycerin) 0.4 Mg Tab.subl 0.4 Mg SL PRN Q5MIN PRN Percocet 10-325 Mg Tablet (Oxycodone/Acetaminophen) 1 Each Tablet 2 Tab PO PRN Q6HRS PRN Levemir Flextouch (Insulin Detemir) 100 Unit/1 Ml Insuln.pen 32 Unit SQ BID Novolog Flexpen (Insulin Aspart) 100 Unit/1 Ml Insuln.pen 20 Unit SQ TIDWMEALS Atorvastatin Calcium 20 Mg Tablet 20 Mg PO HS Potassium Chloride 10 Meq Capsule.er 10 Meq PO BID Aspir 81 (Aspirin) 81 Mg Tablet. 1 Tab PO DAILY Clopidogrel (Clopidogrel Bisulfate) 75 Mg Tablet 1 Tab PO DAILY Famotidine 20 Mg Tablet 20 Mg PO BID Vitals/I & O Vital Sign - Last 24 Hours 01/28/17 01/28/17 01/28/17 01/28/17 13:25 13:31 13:45 14:00 Pulse 57 67 71 58 Resp 18 20 18 B/P (MAP) 145/63 (90) 169/70 (103) 149/69 (95) 140/63 (88) Pulse Ox 99 100 100 O2 Delivery Nasal Cannula Nasal Cannula Nasal Cannula O2 Flow Rate 3.0 3.0 3.0 01/28/17 01/28/17 01/28/17 01/28/17 14:15 14:36 14:37 15:00 Pulse 64 58 68 Resp 19 18 20 B/P (MAP) 134/62 (86) 118/60 (79) 115/62 (79) Pulse Ox 100 100 98 O2 Delivery Nasal Cannula Nasal Cannula Nasal Cannula Nasal Cannula O2 Flow Rate 3.0 3.0 3.0 3.0 01/28/17 01/28/17 01/28/17 01/28/17 15:20 15:53 15:58 16:00 Temp 99.5 99.5 Pulse 68 80 Resp 12 25 B/P (MAP) 150/64 156/79 (104) Pulse Ox 98 96 O2 Delivery Nasal Cannula O2 Flow Rate 3.0 3.0 01/28/17 01/28/17 01/28/17 01/28/17 16:00 17:00 18:00 18:50 Pulse 74 88 56 Resp 22 25 19 B/P (MAP) 168/86 (113) 139/59 (85) 128/69 (88) Pulse Ox 93 94 94 O2 Delivery Nasal Cannula Nasal Cannula Nasal Cannula Nasal Cannula O2 Flow Rate 3.0 2.0 3.0 3.0 01/28/17 01/28/17 01/28/17 01/28/17 20:00 20:00 20:06 20:36 Temp 98.8 98.8 Pulse 62 Resp 22 20 16 B/P (MAP) 105/59 (74) Pulse Ox 94 97 O2 Delivery Nasal Cannula Nasal Cannula Nasal Cannula Nasal Cannula O2 Flow Rate 3.0 3.0 3.0 3.0 01/28/17 01/28/17 01/28/17 01/28/17 20:50 21:00 21:30 22:00 Pulse 75 74 58 60 Resp 21 19 22 B/P (MAP) 198/79 191/66 (107) 184/71 (108) 118/58 (78) Pulse Ox 98 98 98 O2 Delivery Nasal Cannula Nasal Cannula Nasal Cannula O2 Flow Rate 3.0 3.0 3.0 01/28/17 01/28/17 01/28/17 01/29/17 22:08 23:00 23:46 00:00 Temp 98.9 98.9 Pulse 52 50 Resp 23 19 14 B/P (MAP) 131/62 (85) 93/51 (65) Pulse Ox 97 97 97 O2 Delivery Nasal Cannula Nasal Cannula Nasal Cannula Nasal Cannula O2 Flow Rate 3.0 3.0 3.0 3.0 01/29/17 01/29/17 01/29/17 01/29/17 01:00 02:00 03:00 04:00 Pulse 48 49 48 Resp 16 16 20 B/P (MAP) 93/45 (61) 96/45 (62) 101/48 (65) Pulse Ox 97 95 99 O2 Delivery Nasal Cannula Nasal Cannula Nasal Cannula Nasal Cannula O2 Flow Rate 3.0 3.0 3.0 3.0 01/29/17 01/29/17 01/29/17 01/29/17 04:00 04:33 05:00 06:00 Temp 98.9 98.9 Pulse 53 60 46 Resp 17 21 16 19 B/P (MAP) 118/67 (84) 95/46 (62) 107/49 (68) Pulse Ox 100 98 99 97 O2 Delivery Nasal Cannula Nasal Cannula Nasal Cannula Nasal Cannula O2 Flow Rate 3.0 3.0 3.0 3.0 01/29/17 01/29/17 01/29/17 01/29/17 07:00 08:00 08:00 08:02 Temp 98.6 98.6 Pulse 51 53 Resp 18 19 20 B/P (MAP) 125/49 (74) 165/63 (97) Pulse Ox 99 99 96 O2 Delivery Nasal Cannula Nasal Cannula Nasal Cannula Nasal Cannula O2 Flow Rate 3.0 3.0 3.0 01/29/17 01/29/17 01/29/17 01/29/17 08:08 08:32 08:40 09:00 Pulse 54 60 55 Resp 20 18 B/P (MAP) 165/63 165/63 113/63 (80) Pulse Ox 96 97 O2 Delivery Nasal Cannula Nasal Cannula O2 Flow Rate 3.0 3.0 01/29/17 01/29/17 01/29/17 01/29/17 10:00 11:00 11:03 12:03 Pulse 46 45 Resp 20 19 20 17 B/P (MAP) 110/63 (79) 112/63 (79) Pulse Ox 98 98 98 98 O2 Delivery Nasal Cannula Nasal Cannula Nasal Cannula Nasal Cannula O2 Flow Rate 3.0 3.0 3.0 Intake and Output 01/29/17 01/29/17 01/30/17 15:00 23:00 07:00 Intake Total 440 ml Output Total 420 ml Balance 20 ml PERICO BUCHANAN III DO Jan 29, 2017 13:29
[2017-01-29] MEDS ORDERED: ONDANSETRON PF 4 MG/2 ML VIAL. IV PRN (17:45)
[2017-01-29] MEDS: ATORVASTATIN CALCIUM 20 MG TABLET PO SCH (21:07)
[2017-01-30] MEDS: oxyCODONE/APAP 10/325 1 TAB TABLET PO PRN ×4 (01:50→20:22)
[2017-01-30 03:00] VITALS: BP_SYST 114; BP_SYST 99; BP_DIAS 32; BP_DIAS 33
[2017-01-30 05:24] LABS: BASO % 1 % (0-3); EOS % 1 % (0-3); HEMOGLOBIN 10.7 g/dL (12.0-15.5); LYMPH # 1.4 x10^3/uL (1.0-4.8); LYMPH % 20 % (24-48); MEAN CORPUSCULAR HEMOGLOBIN 27 pg (25-35); MEAN CORPUSCULAR HGB CONC 31 g/dL (31-37); MEAN CORPUSCULAR VOLUME 85 fL (79-100); MONO % 8 % (0-9); NEUT % 70 % (31-73); PLATELET COUNT 267 x10^3/uL (140-400); RED BLOOD COUNT 3.98 x10^6/uL (3.50-5.40); WHITE BLOOD COUNT 7.2 x10^3/uL (4.0-11.0)
[2017-01-30 05:34] LABS: CALCIUM 9.1 mg/dL (8.5-10.1); CREATININE 1.1 mg/dL (0.6-1.0); GFR 60.7; POTASSIUM 4.1 mmol/L (3.5-5.1)
[2017-01-30 08:00] VITALS: BP 148/58
[2017-01-30] MEDS: INSULIN ASPART 300 UNITS/3 ML INSULN.PEN SQ SCH ×6 (08:00→18:36)
[2017-01-30] MEDS: FAMOTIDINE 20 MG TABLET. PO SCH ×2 (08:43→20:21)
[2017-01-30] MEDS: ASPIRIN ENTERIC COATED 81 MG TABLET.DR. PO SCH (08:43)
[2017-01-30] MEDS: POTASSIUM CHLORIDE 10 MEQ TABLET.ER. PO SCH ×2 (08:43→18:33)
[2017-01-30] MEDS: FERROUS SULFATE 325 MG TABLET. PO SCH (08:43)
[2017-01-30] MEDS: METOPROLOL TART IMMED RELEASE 50 MG TABLET. PO SCH (08:44)
[2017-01-30] MEDS: CLOPIDOGREL BISULFATE 75 MG TABLET PO SCH (08:44)
[2017-01-30] MEDS: INSULIN DETEMIR 300 UNITS/3 ML INSULN.PEN. SQ SCH ×2 (08:52→20:27)
[2017-01-30] MEDS ORDERED: LOSA100T6 PO (11:00)
[2017-01-30 11:05] VITALS: BP 125/44
--- NOTE | 2017-01-30 11:18 | PDOC ---
PROGRESS NOTES Chief Complaint Chief Complaint 1. HTN emergency POA, resolved 2. LAbile HTN 2. DM 2 3. Obesity BMI 41 History of Present Illness History of Present Illness NOt good today BP now low side, needed to hold BB last night New med is losartan 100PO qD started bec of HTN admission Transfered out of icu yesterday -was on cardene gtt REcent echo I could not find on file Has had LHC not too long ago, "clean" PT trying to work with her now PLAN: NOt ready to dc today bec of above issues Need to see how BP trends as she is labile MIght have some pT needs Dw RN Vitals Vitals Vital Signs Date Time Temp Pulse Resp B/P (MAP) Pulse Ox O2 Delivery O2 Flow Rate FiO2 01/30/17 11:05 98.9 73 20 125/44 (71) 98 Nasal Cannula 3.0 98.9 Physical Exam General: Alert, Oriented X3, Cooperative Heart: Other (regular rate and rhythm S1-S2, 2/6 systolic murmur.) Lungs: Clear Abdomen: Normal bowel sounds, Soft Extremities: Other (1+ edema) Skin: No rashes, No breakdown, No significant lesion Labs LABS Laboratory Tests Test 01/29/17 11:57 01/29/17 16:58 01/29/17 21:06 01/30/17 05:10 Glucose (Fingerstick) 159 mg/dL (70-99) 74 mg/dL (70-99) 150 mg/dL (70-99) White Blood Count 7.2 x10^3/uL (4.0-11.0) Red Blood Count 3.98 x10^6/uL (3.50-5.40) Hemoglobin 10.7 g/dL (12.0-15.5) Hematocrit 34.0 % (36.0-47.0) Mean Corpuscular Volume 85 fL (79-100) Mean Corpuscular Hemoglobin 27 pg (25-35) Mean Corpuscular Hemoglobin Concent 31 g/dL (31-37) Red Cell Distribution Width 16.0 % (11.5-14.5) Platelet Count 267 x10^3/uL (140-400) Neutrophils (%) (Auto) 70 % (31-73) Lymphocytes (%) (Auto) 20 % (24-48) Monocytes (%) (Auto) 8 % (0-9) Eosinophils (%) (Auto) 1 % (0-3) Basophils (%) (Auto) 1 % (0-3) Neutrophils # (Auto) 5.0 x10^3uL (1.8-7.7) Lymphocytes # (Auto) 1.4 x10^3/uL (1.0-4.8) Monocytes # (Auto) 0.6 x10^3/uL (0.0-1.1) Eosinophils # (Auto) 0.1 x10^3/uL (0.0-0.7) Basophils # (Auto) 0.0 x10^3/uL (0.0-0.2) Sodium Level 141 mmol/L (136-145) Potassium Level 4.1 mmol/L (3.5-5.1) Chloride Level 100 mmol/L (98-107) Carbon Dioxide Level 38 mmol/L (21-32) Anion Gap 3 (6-14) Blood Urea Nitrogen 24 mg/dL (7-20) Creatinine 1.1 mg/dL (0.6-1.0) Estimated GFR (Cockcroft-Gault) 60.7 Glucose Level 118 mg/dL (70-99) Calcium Level 9.1 mg/dL (8.5-10.1) Test 01/30/17 07:23 Glucose (Fingerstick) 122 mg/dL (70-99) Review of Systems Review of Systems weak, dizzy. no co, soa, abd pain or urinary issues Assessment and Plan Assessmemt and Plan Problems Medical Problems: (1) Congestive heart failure Status: Acute (2) Coronary artery disease Status: Acute (3) Malignant hypertension Status: Acute Problems: Comment Review of Relevant I have reviewed the following items nolan (where applicable) has been applied. Labs Laboratory Tests Test 01/28/17 12:30 01/28/17 15:30 01/28/17 18:08 01/28/17 19:15 White Blood Count 8.0 x10^3/uL (4.0-11.0) Red Blood Count 4.50 x10^6/uL (3.50-5.40) Hemoglobin 12.0 g/dL (12.0-15.5) Hematocrit 38.1 % (36.0-47.0) Mean Corpuscular Volume 85 fL (79-100) Mean Corpuscular Hemoglobin 27 pg (25-35) Mean Corpuscular Hemoglobin Concent 32 g/dL (31-37) Red Cell Distribution Width 15.7 % (11.5-14.5) Platelet Count 305 x10^3/uL (140-400) Neutrophils (%) (Auto) 81 % (31-73) Lymphocytes (%) (Auto) 12 % (24-48) Monocytes (%) (Auto) 6 % (0-9) Eosinophils (%) (Auto) 0 % (0-3) Basophils (%) (Auto) 1 % (0-3) Neutrophils # (Auto) 6.4 x10^3uL (1.8-7.7) Lymphocytes # (Auto) 1.0 x10^3/uL (1.0-4.8) Monocytes # (Auto) 0.5 x10^3/uL (0.0-1.1) Eosinophils # (Auto) 0.0 x10^3/uL (0.0-0.7) Basophils # (Auto) 0.0 x10^3/uL (0.0-0.2) Sodium Level 139 mmol/L (136-145) Potassium Level 4.3 mmol/L (3.5-5.1) Chloride Level 98 mmol/L (98-107) Carbon Dioxide Level 40 mmol/L (21-32) Anion Gap 1 (6-14) Blood Urea Nitrogen 11 mg/dL (7-20) Creatinine 0.8 mg/dL (0.6-1.0) Estimated GFR (Cockcroft-Gault) 87.7 BUN/Creatinine Ratio 14 (6-20) Glucose Level 168 mg/dL (70-99) Hemoglobin A1c 7.4 % (4.8-5.6) Calcium Level 9.4 mg/dL (8.5-10.1) Magnesium Level 1.9 mg/dL (1.8-2.4) Total Bilirubin 0.4 mg/dL (0.2-1.0) Aspartate Amino Transf (AST/SGOT) 17 U/L (15-37) Alanine Aminotransferase (ALT/SGPT) 22 U/L (14-59) Alkaline Phosphatase 108 U/L (46-116) Creatine Kinase 49 U/L (26-192) Creatine Kinase MB (Mass) < 0.5 ng/mL (0.0-3.6) Creatine Kinase MB Relative Index % (0-4) Troponin I Quantitative 0.023 ng/mL (0.000-0.055) 0.024 ng/mL (0.000-0.055) MC-Okf-S-Type Natriuretic Peptide 1440 pg/mL (0-124) Total Protein 8.0 g/dL (6.4-8.2) Albumin 3.0 g/dL (3.4-5.0) Albumin/Globulin Ratio 0.6 (1.0-1.7) Lipase 61 U/L (73-393) Nasal Screen MRSA (PCR) Negative (Negative) Glucose (Fingerstick) 199 mg/dL (70-99) Test 01/28/17 20:49 01/29/17 01:26 01/29/17 08:10 01/29/17 11:57 Glucose (Fingerstick) 127 mg/dL (70-99) 134 mg/dL (70-99) 159 mg/dL (70-99) White Blood Count 8.5 x10^3/uL (4.0-11.0) Red Blood Count 4.06 x10^6/uL (3.50-5.40) Hemoglobin 10.8 g/dL (12.0-15.5) Hematocrit 34.6 % (36.0-47.0) Mean Corpuscular Volume 85 fL (79-100) Mean Corpuscular Hemoglobin 27 pg (25-35) Mean Corpuscular Hemoglobin Concent 31 g/dL (31-37) Red Cell Distribution Width 16.0 % (11.5-14.5) Platelet Count 298 x10^3/uL (140-400) Neutrophils (%) (Auto) 68 % (31-73) Lymphocytes (%) (Auto) 23 % (24-48) Monocytes (%) (Auto) 8 % (0-9) Eosinophils (%) (Auto) 1 % (0-3) Basophils (%) (Auto) 1 % (0-3) Neutrophils # (Auto) 5.8 x10^3uL (1.8-7.7) Lymphocytes # (Auto) 2.0 x10^3/uL (1.0-4.8) Monocytes # (Auto) 0.7 x10^3/uL (0.0-1.1) Eosinophils # (Auto) 0.1 x10^3/uL (0.0-0.7) Basophils # (Auto) 0.1 x10^3/uL (0.0-0.2) Sodium Level 143 mmol/L (136-145) Potassium Level 3.9 mmol/L (3.5-5.1) Chloride Level 101 mmol/L (98-107) Carbon Dioxide Level 40 mmol/L (21-32) Anion Gap 2 (6-14) Blood Urea Nitrogen 18 mg/dL (7-20) Creatinine 1.2 mg/dL (0.6-1.0) Estimated GFR (Cockcroft-Gault) 54.9 Glucose Level 136 mg/dL (70-99) Calcium Level 8.6 mg/dL (8.5-10.1) Troponin I Quantitative 0.043 ng/mL (0.000-0.055) Test 01/29/17 16:58 01/29/17 21:06 01/30/17 05:10 01/30/17 07:23 Glucose (Fingerstick) 74 mg/dL (70-99) 150 mg/dL (70-99) 122 mg/dL (70-99) White Blood Count 7.2 x10^3/uL (4.0-11.0) Red Blood Count 3.98 x10^6/uL (3.50-5.40) Hemoglobin 10.7 g/dL (12.0-15.5) Hematocrit 34.0 % (36.0-47.0) Mean Corpuscular Volume 85 fL (79-100) Mean Corpuscular Hemoglobin 27 pg (25-35) Mean Corpuscular Hemoglobin Concent 31 g/dL (31-37) Red Cell Distribution Width 16.0 % (11.5-14.5) Platelet Count 267 x10^3/uL (140-400) Neutrophils (%) (Auto) 70 % (31-73) Lymphocytes (%) (Auto) 20 % (24-48) Monocytes (%) (Auto) 8 % (0-9) Eosinophils (%) (Auto) 1 % (0-3) Basophils (%) (Auto) 1 % (0-3) Neutrophils # (Auto) 5.0 x10^3uL (1.8-7.7) Lymphocytes # (Auto) 1.4 x10^3/uL (1.0-4.8) Monocytes # (Auto) 0.6 x10^3/uL (0.0-1.1) Eosinophils # (Auto) 0.1 x10^3/uL (0.0-0.7) Basophils # (Auto) 0.0 x10^3/uL (0.0-0.2) Sodium Level 141 mmol/L (136-145) Potassium Level 4.1 mmol/L (3.5-5.1) Chloride Level 100 mmol/L (98-107) Carbon Dioxide Level 38 mmol/L (21-32) Anion Gap 3 (6-14) Blood Urea Nitrogen 24 mg/dL (7-20) Creatinine 1.1 mg/dL (0.6-1.0) Estimated GFR (Cockcroft-Gault) 60.7 Glucose Level 118 mg/dL (70-99) Calcium Level 9.1 mg/dL (8.5-10.1) Laboratory Tests Test 01/29/17 11:57 01/29/17 16:58 01/29/17 21:06 01/30/17 05:10 Glucose (Fingerstick) 159 mg/dL (70-99) 74 mg/dL (70-99) 150 mg/dL (70-99) White Blood Count 7.2 x10^3/uL (4.0-11.0) Red Blood Count 3.98 x10^6/uL (3.50-5.40) Hemoglobin 10.7 g/dL (12.0-15.5) Hematocrit 34.0 % (36.0-47.0) Mean Corpuscular Volume 85 fL (79-100) Mean Corpuscular Hemoglobin 27 pg (25-35) Mean Corpuscular Hemoglobin Concent 31 g/dL (31-37) Red Cell Distribution Width 16.0 % (11.5-14.5) Platelet Count 267 x10^3/uL (140-400) Neutrophils (%) (Auto) 70 % (31-73) Lymphocytes (%) (Auto) 20 % (24-48) Monocytes (%) (Auto) 8 % (0-9) Eosinophils (%) (Auto) 1 % (0-3) Basophils (%) (Auto) 1 % (0-3) Neutrophils # (Auto) 5.0 x10^3uL (1.8-7.7) Lymphocytes # (Auto) 1.4 x10^3/uL (1.0-4.8) Monocytes # (Auto) 0.6 x10^3/uL (0.0-1.1) Eosinophils # (Auto) 0.1 x10^3/uL (0.0-0.7) Basophils # (Auto) 0.0 x10^3/uL (0.0-0.2) Sodium Level 141 mmol/L (136-145) Potassium Level 4.1 mmol/L (3.5-5.1) Chloride Level 100 mmol/L (98-107) Carbon Dioxide Level 38 mmol/L (21-32) Anion Gap 3 (6-14) Blood Urea Nitrogen 24 mg/dL (7-20) Creatinine 1.1 mg/dL (0.6-1.0) Estimated GFR (Cockcroft-Gault) 60.7 Glucose Level 118 mg/dL (70-99) Calcium Level 9.1 mg/dL (8.5-10.1) Test 01/30/17 07:23 Glucose (Fingerstick) 122 mg/dL (70-99) Medications Current Medications Fentanyl Citrate (Fentanyl 2ml Vial) 50 mcg PRN Q15MIN PRN IV PAIN GREATER THAN 3/10 Last administered on 01/29/17 08:02; Start 01/28/17 at 12:30; Stop 01/29/17 at 12:29; Status DC Sodium Chloride 1,000 ml @ 125 mls/hr Q8H IV Last administered on 01/28/17 13 :05; Start 01/28/17 at 12:21; Stop 01/28/17 at 20:20; Status DC Ondansetron HCl (Zofran) 4 mg 1X ONCE IV Last administered on 01/28/17 13:05 ; Start 01/28/17 at 12:30; Stop 01/28/17 at 12:31; Status DC Labetalol HCl (Normodyne) 20 mg 1X ONCE IVP Last administered on 01/28/17 13: 07; Start 01/28/17 at 12:30; Stop 01/28/17 at 12:33; Status DC Nicardipine HCl 50 mg/Sodium Chloride 270 ml @ 0 mls/hr CONT PRN IV SEE I/O RECORD Last administered on 01/28/17 13:33; Start 01/28/17 at 13:15; Stop 01/30 at 10:59; Status DC Ondansetron HCl (Zofran) 4 mg PRN Q8HRS PRN IV NAUSEA/VOMITING; Start 01/28/17 at 13:30; Stop 01/28/17 at 14:14; Status DC Fentanyl Citrate (Fentanyl 2ml Vial) 50 mcg PRN Q2HR PRN IV PAIN Last administered on 01/28/17 20:06; Start 01/28/17 at 13:30; Stop 01/29/17 at 13:29 ; Status DC Sodium Chloride 1,000 ml @ 0 mls/hr Q0M IV ; Start 01/28/17 at 13:29; Stop 01/29/17 at 13:28; Status DC Acetaminophen (Tylenol) 650 mg PRN Q4HRS PRN PO FEVER; Start 01/28/17 at 13:30 ; Stop 01/29/17 at 13:29; Status DC Ondansetron HCl (Zofran) 4 mg PRN Q6HRS PRN IV NAUSEA/VOMITING; Start 01/28/17 at 14:15; Stop 01/29/17 at 14:14; Status DC Acetaminophen (Tylenol) 500 mg PRN Q6HRS PRN PO MILD PAIN / TEMP; Start at 14:15 Ibuprofen (Motrin) 600 mg PRN Q6HRS PRN PO INFLAMMATION; Start 01/28/17 at 14: 15 Diphenhydramine HCl (Benadryl) 25 mg PRN QHS PRN PO INSOMNIA; Start 01/28/17 at 14:15 Aspirin (Ecotrin) 81 mg DAILY PO Last administered on 01/30/17 08:43; Start 01/29/17 at 09:00 Atorvastatin Calcium (Lipitor) 20 mg HS PO Last administered on 01/29/17 21:07 ; Start 01/28/17 at 21:00 Clopidogrel Bisulfate (Plavix) 75 mg DAILY PO Last administered on 01/30/17 08 :44; Start 01/29/17 at 09:00 Famotidine (Pepcid) 20 mg BID PO Last administered on 01/30/17 08:43; Start 01/28/17 at 21:00 Ferrous Sulfate (Feosol) 325 mg DAILY PO Last administered on 01/30/17 08:43; Start 01/29/17 at 09:00 Furosemide (Lasix) 80 mg [id number] PO Last administered on 01/29/17 16:10; Start 01/28/17 at 15:00 Insulin Aspart (NovoLOG) 20 units TIDWMEALS SQ Last administered on 01/30/17 08:51; Start 01/28/17 at 17:00 Insulin Detemir (Levemir) 32 units BID SQ Last administered on 01/30/17 08:52 ; Start 01/28/17 at 21:00 Metoprolol Tartrate (Lopressor) 25 mg BID PO ; Start 01/28/17 at 21:00; Stop at 21:00; Status DC Nitroglycerin (Nitrostat) 0.4 mg PRN Q5MIN PRN SL CHEST PAIN; Start 01/28/17 at 14:15 Oxycodone/ Acetaminophen (Percocet 10/325) 1 tab PRN QID PRN PO MODERATE PAIN Last administered on 01/29/17 18:01; Start 01/28/17 at 14:15 Oxycodone/ Acetaminophen (Percocet 10/325) 2 tab PRN Q6HRS PRN PO SEVERE PAIN Last administered on 01/30/17 08:43; Start 01/28/17 at 14:15 Potassium Chloride (Klor-Con) 10 meq BIDWMEALS PO Last administered on 08:43; Start 01/28/17 at 17:00 Insulin Aspart (NovoLOG) 0-9 UNITS TIDWMEALS SQ Last administered on 01/29/17 12:28; Start 01/28/17 at 17:00 Dextrose (Dextrose 50%-Water Syringe) 12.5 gm PRN Q15MIN PRN IV SEE COMMENTS; Start 01/28/17 at 15:15 Losartan Potassium (Cozaar) 100 mg DAILY PO Last administered on 01/29/17 08: 08; Start 01/28/17 at 16:00 Metoprolol Tartrate (Lopressor) 50 mg BID PO Last administered on 01/30/17 08: 44; Start 01/28/17 at 21:00 Ondansetron HCl (Zofran) 4 mg PRN Q6HRS PRN IV NAUSEA/VOMITING Last administered on 01/29/17 17:58; Start 01/29/17 at 17:45 Active Scripts Active Percocet 10-325 Mg Tablet (Oxycodone/Acetaminophen) 1 Each Tablet 1 Tab PO Q6- 8HRS PRN Lasix (Furosemide) 80 Mg Tablet 1 Tab PO BID Reported Metoprolol Tartrate 50 Mg Tablet 1 Tab PO BID Ferrous Sulfate 325 Mg Tablet 1 Tab PO DAILY NITROGLYCERIN SubLingual (Nitroglycerin) 0.4 Mg Tab.subl 0.4 Mg SL PRN Q5MIN PRN Percocet 10-325 Mg Tablet (Oxycodone/Acetaminophen) 1 Each Tablet 2 Tab PO PRN Q6HRS PRN Levemir Flextouch (Insulin Detemir) 100 Unit/1 Ml Insuln.pen 32 Unit SQ BID Novolog Flexpen (Insulin Aspart) 100 Unit/1 Ml Insuln.pen 20 Unit SQ TIDWMEALS Atorvastatin Calcium 20 Mg Tablet 20 Mg PO HS Potassium Chloride 10 Meq Capsule.er 10 Meq PO BID Aspir 81 (Aspirin) 81 Mg Tablet. 1 Tab PO DAILY Clopidogrel (Clopidogrel Bisulfate) 75 Mg Tablet 1 Tab PO DAILY Famotidine 20 Mg Tablet 20 Mg PO BID Vitals/I & O Vital Sign - Last 24 Hours 01/29/17 01/29/17 01/29/17 01/29/17 12:03 15:00 18:01 19:00 Temp 98.0 98.6 98.0 98.6 Pulse 47 52 Resp 17 18 18 B/P (MAP) 64/42 (49) 99/42 (61) Pulse Ox 98 97 97 97 O2 Delivery Nasal Cannula Nasal Cannula Nasal Cannula O2 Flow Rate 3.0 3.0 3.0 01/29/17 01/29/17 01/29/17 01/30/17 20:06 21:00 23:00 01:50 Temp 98.4 98.4 Pulse 50 57 Resp 18 B/P (MAP) 98/40 110/45 (66) Pulse Ox 98 O2 Delivery Nasal Cannula Nasal Cannula Nasal Cannula O2 Flow Rate 3.0 3.0 01/30/17 01/30/17 01/30/17 01/30/17 02:50 03:00 03:00 08:00 Temp 98.1 98.8 98.1 98.8 Pulse 56 54 82 Resp 18 19 B/P (MAP) 114/33 (60) 99/32 (54) 148/58 (88) Pulse Ox 98 94 O2 Delivery Nasal Cannula Nasal Cannula Nasal Cannula O2 Flow Rate 2.0 3.0 3.0 01/30/17 01/30/17 01/30/17 01/30/17 08:15 08:43 08:44 11:05 Temp 98.9 98.9 Pulse 96 73 Resp 20 B/P (MAP) 148/58 125/44 (71) Pulse Ox 98 O2 Delivery Nasal Cannula Nasal Cannula Nasal Cannula O2 Flow Rate 2.0 6.0 3.0 Intake and Output 01/30/17 01/30/17 01/31/17 15:00 23:00 07:00 Intake Total 280 ml Balance 280 ml CATHIE KNIGHT MD Jan 30, 2017 11:18
[2017-01-30] MEDS: FUROSEMIDE 80 MG TABLET. PO SCH ×2 (11:32→13:04)
--- NOTE | 2017-01-30 14:10 | PDOC ---
PROGRESS NOTES Subjective Subjective Pt is a bit scar and BP is lower Feels better, no significant dyspnea Objective Objective Vital Signs Date Time Temp Pulse Resp B/P (MAP) Pulse Ox O2 Delivery O2 Flow Rate FiO2 01/30/17 11:05 98.9 73 20 125/44 (71) 98 Nasal Cannula 3.0 98.9 Intake and Output 01/31/17 07:00 Intake Total 830 ml Output Total 750 ml Balance 80 ml Intake Oral 830 ml Output Urine Total 750 ml Physical Exam Physical Exam No changes in cardiac exam Assessment Assessment Pt is in sinus scar but maintains a BP, in the past when the Lopressor is held then we start this up and down of the BP that makes it difficult to control. I will change the Lopressor to 50mg po q AM and 25mg po q PM and see how she does but I would not hold it to see how she does. Comment Review of Relevant I have reviewed the following items nolan (where applicable) has been applied. Labs Laboratory Tests Test 01/28/17 15:30 01/28/17 18:08 01/28/17 19:15 01/28/17 20:49 Nasal Screen MRSA (PCR) Negative (Negative) Glucose (Fingerstick) 199 mg/dL (70-99) 127 mg/dL (70-99) Troponin I Quantitative 0.024 ng/mL (0.000-0.055) Test 01/29/17 01:26 01/29/17 08:10 01/29/17 11:57 01/29/17 16:58 White Blood Count 8.5 x10^3/uL (4.0-11.0) Red Blood Count 4.06 x10^6/uL (3.50-5.40) Hemoglobin 10.8 g/dL (12.0-15.5) Hematocrit 34.6 % (36.0-47.0) Mean Corpuscular Volume 85 fL (79-100) Mean Corpuscular Hemoglobin 27 pg (25-35) Mean Corpuscular Hemoglobin Concent 31 g/dL (31-37) Red Cell Distribution Width 16.0 % (11.5-14.5) Platelet Count 298 x10^3/uL (140-400) Neutrophils (%) (Auto) 68 % (31-73) Lymphocytes (%) (Auto) 23 % (24-48) Monocytes (%) (Auto) 8 % (0-9) Eosinophils (%) (Auto) 1 % (0-3) Basophils (%) (Auto) 1 % (0-3) Neutrophils # (Auto) 5.8 x10^3uL (1.8-7.7) Lymphocytes # (Auto) 2.0 x10^3/uL (1.0-4.8) Monocytes # (Auto) 0.7 x10^3/uL (0.0-1.1) Eosinophils # (Auto) 0.1 x10^3/uL (0.0-0.7) Basophils # (Auto) 0.1 x10^3/uL (0.0-0.2) Sodium Level 143 mmol/L (136-145) Potassium Level 3.9 mmol/L (3.5-5.1) Chloride Level 101 mmol/L (98-107) Carbon Dioxide Level 40 mmol/L (21-32) Anion Gap 2 (6-14) Blood Urea Nitrogen 18 mg/dL (7-20) Creatinine 1.2 mg/dL (0.6-1.0) Estimated GFR (Cockcroft-Gault) 54.9 Glucose Level 136 mg/dL (70-99) Calcium Level 8.6 mg/dL (8.5-10.1) Troponin I Quantitative 0.043 ng/mL (0.000-0.055) Glucose (Fingerstick) 134 mg/dL (70-99) 159 mg/dL (70-99) 74 mg/dL (70-99) Test 01/29/17 21:06 01/30/17 05:10 01/30/17 07:23 01/30/17 11:45 Glucose (Fingerstick) 150 mg/dL (70-99) 122 mg/dL (70-99) 132 mg/dL (70-99) White Blood Count 7.2 x10^3/uL (4.0-11.0) Red Blood Count 3.98 x10^6/uL (3.50-5.40) Hemoglobin 10.7 g/dL (12.0-15.5) Hematocrit 34.0 % (36.0-47.0) Mean Corpuscular Volume 85 fL (79-100) Mean Corpuscular Hemoglobin 27 pg (25-35) Mean Corpuscular Hemoglobin Concent 31 g/dL (31-37) Red Cell Distribution Width 16.0 % (11.5-14.5) Platelet Count 267 x10^3/uL (140-400) Neutrophils (%) (Auto) 70 % (31-73) Lymphocytes (%) (Auto) 20 % (24-48) Monocytes (%) (Auto) 8 % (0-9) Eosinophils (%) (Auto) 1 % (0-3) Basophils (%) (Auto) 1 % (0-3) Neutrophils # (Auto) 5.0 x10^3uL (1.8-7.7) Lymphocytes # (Auto) 1.4 x10^3/uL (1.0-4.8) Monocytes # (Auto) 0.6 x10^3/uL (0.0-1.1) Eosinophils # (Auto) 0.1 x10^3/uL (0.0-0.7) Basophils # (Auto) 0.0 x10^3/uL (0.0-0.2) Sodium Level 141 mmol/L (136-145) Potassium Level 4.1 mmol/L (3.5-5.1) Chloride Level 100 mmol/L (98-107) Carbon Dioxide Level 38 mmol/L (21-32) Anion Gap 3 (6-14) Blood Urea Nitrogen 24 mg/dL (7-20) Creatinine 1.1 mg/dL (0.6-1.0) Estimated GFR (Cockcroft-Gault) 60.7 Glucose Level 118 mg/dL (70-99) Calcium Level 9.1 mg/dL (8.5-10.1) Laboratory Tests Test 01/29/17 16:58 01/29/17 21:06 01/30/17 05:10 01/30/17 07:23 Glucose (Fingerstick) 74 mg/dL (70-99) 150 mg/dL (70-99) 122 mg/dL (70-99) White Blood Count 7.2 x10^3/uL (4.0-11.0) Red Blood Count 3.98 x10^6/uL (3.50-5.40) Hemoglobin 10.7 g/dL (12.0-15.5) Hematocrit 34.0 % (36.0-47.0) Mean Corpuscular Volume 85 fL (79-100) Mean Corpuscular Hemoglobin 27 pg (25-35) Mean Corpuscular Hemoglobin Concent 31 g/dL (31-37) Red Cell Distribution Width 16.0 % (11.5-14.5) Platelet Count 267 x10^3/uL (140-400) Neutrophils (%) (Auto) 70 % (31-73) Lymphocytes (%) (Auto) 20 % (24-48) Monocytes (%) (Auto) 8 % (0-9) Eosinophils (%) (Auto) 1 % (0-3) Basophils (%) (Auto) 1 % (0-3) Neutrophils # (Auto) 5.0 x10^3uL (1.8-7.7) Lymphocytes # (Auto) 1.4 x10^3/uL (1.0-4.8) Monocytes # (Auto) 0.6 x10^3/uL (0.0-1.1) Eosinophils # (Auto) 0.1 x10^3/uL (0.0-0.7) Basophils # (Auto) 0.0 x10^3/uL (0.0-0.2) Sodium Level 141 mmol/L (136-145) Potassium Level 4.1 mmol/L (3.5-5.1) Chloride Level 100 mmol/L (98-107) Carbon Dioxide Level 38 mmol/L (21-32) Anion Gap 3 (6-14) Blood Urea Nitrogen 24 mg/dL (7-20) Creatinine 1.1 mg/dL (0.6-1.0) Estimated GFR (Cockcroft-Gault) 60.7 Glucose Level 118 mg/dL (70-99) Calcium Level 9.1 mg/dL (8.5-10.1) Test 01/30/17 11:45 Glucose (Fingerstick) 132 mg/dL (70-99) Medications Current Medications Fentanyl Citrate (Fentanyl 2ml Vial) 50 mcg PRN Q15MIN PRN IV PAIN GREATER THAN 3/10 Last administered on 01/29/17 08:02; Start 01/28/17 at 12:30; Stop 01/29/17 at 12:29; Status DC Sodium Chloride 1,000 ml @ 125 mls/hr Q8H IV Last administered on 01/28/17 13 :05; Start 01/28/17 at 12:21; Stop 01/28/17 at 20:20; Status DC Ondansetron HCl (Zofran) 4 mg 1X ONCE IV Last administered on 01/28/17 13:05 ; Start 01/28/17 at 12:30; Stop 01/28/17 at 12:31; Status DC Labetalol HCl (Normodyne) 20 mg 1X ONCE IVP Last administered on 01/28/17 13: 07; Start 01/28/17 at 12:30; Stop 01/28/17 at 12:33; Status DC Nicardipine HCl 50 mg/Sodium Chloride 270 ml @ 0 mls/hr CONT PRN IV SEE I/O RECORD Last administered on 01/28/17 13:33; Start 01/28/17 at 13:15; Stop 01/30 at 10:59; Status DC Ondansetron HCl (Zofran) 4 mg PRN Q8HRS PRN IV NAUSEA/VOMITING; Start 01/28/17 at 13:30; Stop 01/28/17 at 14:14; Status DC Fentanyl Citrate (Fentanyl 2ml Vial) 50 mcg PRN Q2HR PRN IV PAIN Last administered on 01/28/17 20:06; Start 01/28/17 at 13:30; Stop 01/29/17 at 13:29 ; Status DC Sodium Chloride 1,000 ml @ 0 mls/hr Q0M IV ; Start 01/28/17 at 13:29; Stop 01/29/17 at 13:28; Status DC Acetaminophen (Tylenol) 650 mg PRN Q4HRS PRN PO FEVER; Start 01/28/17 at 13:30 ; Stop 01/29/17 at 13:29; Status DC Ondansetron HCl (Zofran) 4 mg PRN Q6HRS PRN IV NAUSEA/VOMITING; Start 01/28/17 at 14:15; Stop 01/29/17 at 14:14; Status DC Acetaminophen (Tylenol) 500 mg PRN Q6HRS PRN PO MILD PAIN / TEMP; Start at 14:15 Ibuprofen (Motrin) 600 mg PRN Q6HRS PRN PO INFLAMMATION; Start 01/28/17 at 14: 15 Diphenhydramine HCl (Benadryl) 25 mg PRN QHS PRN PO INSOMNIA; Start 01/28/17 at 14:15 Aspirin (Ecotrin) 81 mg DAILY PO Last administered on 01/30/17 08:43; Start 01/29/17 at 09:00 Atorvastatin Calcium (Lipitor) 20 mg HS PO Last administered on 01/29/17 21:07 ; Start 01/28/17 at 21:00 Clopidogrel Bisulfate (Plavix) 75 mg DAILY PO Last administered on 01/30/17 08 :44; Start 01/29/17 at 09:00 Famotidine (Pepcid) 20 mg BID PO Last administered on 01/30/17 08:43; Start 01/28/17 at 21:00 Ferrous Sulfate (Feosol) 325 mg DAILY PO Last administered on 01/30/17 08:43; Start 01/29/17 at 09:00 Furosemide (Lasix) 80 mg [id number] PO Last administered on 01/30/17 13:04; Start 01/28/17 at 15:00 Insulin Aspart (NovoLOG) 20 units TIDWMEALS SQ Last administered on 01/30/17 13:06; Start 01/28/17 at 17:00 Insulin Detemir (Levemir) 32 units BID SQ Last administered on 01/30/17 08:52 ; Start 01/28/17 at 21:00 Metoprolol Tartrate (Lopressor) 25 mg BID PO ; Start 01/28/17 at 21:00; Stop at 21:00; Status DC Nitroglycerin (Nitrostat) 0.4 mg PRN Q5MIN PRN SL CHEST PAIN; Start 01/28/17 at 14:15 Oxycodone/ Acetaminophen (Percocet 10/325) 1 tab PRN QID PRN PO MODERATE PAIN Last administered on 01/29/17 18:01; Start 01/28/17 at 14:15 Oxycodone/ Acetaminophen (Percocet 10/325) 2 tab PRN Q6HRS PRN PO SEVERE PAIN Last administered on 01/30/17 08:43; Start 01/28/17 at 14:15 Potassium Chloride (Klor-Con) 10 meq BIDWMEALS PO Last administered on 08:43; Start 01/28/17 at 17:00 Insulin Aspart (NovoLOG) 0-9 UNITS TIDWMEALS SQ Last administered on 01/29/17 12:28; Start 01/28/17 at 17:00 Dextrose (Dextrose 50%-Water Syringe) 12.5 gm PRN Q15MIN PRN IV SEE COMMENTS; Start 01/28/17 at 15:15 Losartan Potassium (Cozaar) 100 mg DAILY PO Last administered on 01/29/17 08: 08; Start 01/28/17 at 16:00 Metoprolol Tartrate (Lopressor) 50 mg BID PO Last administered on 01/30/17 08: 44; Start 01/28/17 at 21:00 Ondansetron HCl (Zofran) 4 mg PRN Q6HRS PRN IV NAUSEA/VOMITING Last administered on 01/29/17 17:58; Start 01/29/17 at 17:45 Active Scripts Active Percocet 10-325 Mg Tablet (Oxycodone/Acetaminophen) 1 Each Tablet 1 Tab PO Q6- 8HRS PRN Lasix (Furosemide) 80 Mg Tablet 1 Tab PO BID Reported Metoprolol Tartrate 50 Mg Tablet 1 Tab PO BID Ferrous Sulfate 325 Mg Tablet 1 Tab PO DAILY NITROGLYCERIN SubLingual (Nitroglycerin) 0.4 Mg Tab.subl 0.4 Mg SL PRN Q5MIN PRN Percocet 10-325 Mg Tablet (Oxycodone/Acetaminophen) 1 Each Tablet 2 Tab PO PRN Q6HRS PRN Levemir Flextouch (Insulin Detemir) 100 Unit/1 Ml Insuln.pen 32 Unit SQ BID Novolog Flexpen (Insulin Aspart) 100 Unit/1 Ml Insuln.pen 20 Unit SQ TIDWMEALS Atorvastatin Calcium 20 Mg Tablet 20 Mg PO HS Potassium Chloride 10 Meq Capsule.er 10 Meq PO BID Aspir 81 (Aspirin) 81 Mg Tablet.dr 1 Tab PO DAILY Clopidogrel (Clopidogrel Bisulfate) 75 Mg Tablet 1 Tab PO DAILY Famotidine 20 Mg Tablet 20 Mg PO BID Vitals/I & O Vital Sign - Last 24 Hours 01/29/17 01/29/17 01/29/17 01/29/17 15:00 18:01 19:00 20:06 Temp 98.0 98.6 98.0 98.6 Pulse 47 52 Resp 18 18 B/P (MAP) 64/42 (49) 99/42 (61) Pulse Ox 97 97 97 O2 Delivery Nasal Cannula Nasal Cannula Nasal Cannula Nasal Cannula O2 Flow Rate 3.0 3.0 3.0 3.0 01/29/17 01/29/17 01/30/17 01/30/17 21:00 23:00 01:50 02:50 Temp 98.4 98.4 Pulse 50 57 Resp 18 B/P (MAP) 98/40 110/45 (66) Pulse Ox 98 O2 Delivery Nasal Cannula Nasal Cannula Nasal Cannula O2 Flow Rate 3.0 2.0 01/30/17 01/30/17 01/30/17 01/30/17 03:00 03:00 08:00 08:15 Temp 98.1 98.8 98.1 98.8 Pulse 56 54 82 Resp 18 19 B/P (MAP) 114/33 (60) 99/32 (54) 148/58 (88) Pulse Ox 98 94 O2 Delivery Nasal Cannula Nasal Cannula Nasal Cannula O2 Flow Rate 3.0 3.0 2.0 01/30/17 01/30/17 01/30/17 08:43 08:44 11:05 Temp 98.9 98.9 Pulse 96 73 Resp 20 B/P (MAP) 148/58 125/44 (71) Pulse Ox 98 O2 Delivery Nasal Cannula Nasal Cannula O2 Flow Rate 6.0 3.0 Intake and Output 01/30/17 01/30/17 01/31/17 15:00 23:00 07:00 Intake Total 830 ml Output Total 750 ml Balance 80 ml LIZBET LINDSAY MD Jan 30, 2017 14:10
[2017-01-30] MEDS: LOSARTAN POTASSIUM 50 MG TABLET. PO SCH (14:23)
[2017-01-30 15:24] VITALS: BP 138/70
[2017-01-30 19:20] VITALS: BP 107/35
[2017-01-30] MEDS: ATORVASTATIN CALCIUM 20 MG TABLET PO SCH (20:21)
[2017-01-30] MEDS: METOPROLOL TART IMMED RELEASE 25 MG TABLET. PO SCH (20:23)
[2017-01-30 23:30] VITALS: BP 114/42
[2017-01-31] MEDS: oxyCODONE/APAP 10/325 1 TAB TABLET PO PRN ×3 (02:37→17:43)
[2017-01-31 03:51] VITALS: BP 136/43
[2017-01-31 06:46] LABS: BASO % 0 % (0-3); EOS % 1 % (0-3); HEMATOCRIT 35.7 % (36.0-47.0); HEMOGLOBIN 11.1 g/dL (12.0-15.5); LYMPH # 1.4 x10^3/uL (1.0-4.8); LYMPH % 17 % (24-48); MEAN CORPUSCULAR HEMOGLOBIN 27 pg (25-35); MEAN CORPUSCULAR HGB CONC 31 g/dL (31-37); MEAN CORPUSCULAR VOLUME 85 fL (79-100); MONO % 8 % (0-9); NEUT % 74 % (31-73); PLATELET COUNT 284 x10^3/uL (140-400); RED BLOOD COUNT 4.18 x10^6/uL (3.50-5.40); RED CELL DISTRIBUTION WIDTH 15.9 % (11.5-14.5); WHITE BLOOD COUNT 8.1 x10^3/uL (4.0-11.0)
[2017-01-31] MEDS ORDERED: LABETALOL 20 MG/4 ML DISP.SYRIN. IVP PRN (07:45)
[2017-01-31 08:00] VITALS: BP 205/62
[2017-01-31] MEDS: INSULIN ASPART 300 UNITS/3 ML INSULN.PEN SQ SCH ×6 (08:00→17:50)
--- NOTE | 2017-01-31 08:20 | RAD ---
Clinical indications: Unstable and shaking. CVA. History of heart attack and CABG. Comparison: August 01, 2013. Technique: Noncontrast axial cross sectional scanning of the head was performed. Findings: No acute intracranial hemorrhage or midline shift or mass-effect or hydrocephalus or extra-axial fluid collection is seen. There is a new focal hypodensity involving the posterior limb of the internal capsule on the right side. No skull fracture or pneumocephalus is seen. No opacification of the mastoid sinuses or the paranasal sinuses is seen. Impression: No acute intracranial hemorrhage is seen. New focal hypodense area Involving the posterior limb of internal capsule on the right side. New focus of ischemia is possible. MRI study may be helpful for further evaluation if clinically needed. PQRS Compliance Statement: One or more of the following individualized dose reduction techniques were utilized for this examination: 1. Automated exposure control 2. Adjustment of the mA and/or kV according to patient size 3. Use of iterative reconstruction technique
[2017-01-31 08:23] LABS: CALCIUM 9.6 mg/dL (8.5-10.1); CREATININE 0.8 mg/dL (0.6-1.0); GFR 87.7; POTASSIUM 4.9 mmol/L (3.5-5.1)
--- NOTE | 2017-01-31 09:04 | RAD ---
EXAM: Brain MRI without contrast. HISTORY: Weakness. Slurred speech. TECHNIQUE: Multiplanar, multisequence magnetic resonance imaging of the brain was performed without contrast. COMPARISON: None. FINDINGS: There is no restricted diffusion to suggest acute or subacute infarction. There is no susceptibility effect to suggest hemorrhage. There is a tiny focus of decreased signal on susceptibility weighted images within the left cerebral peduncle, likely artifactual or due to a vessel. There are scattered areas of T2/FLAIR hyperintensity within the cerebral white matter, a nonspecific finding. The orbits are unremarkable. The paranasal sinuses and mastoid air cells are unremarkable. There are normal flow voids within the cerebral vessels. IMPRESSION: 1. No acute intracranial finding. 2. Scattered foci of signal change within the cerebral white matter, likely due to chronic small vessel disease. Electronically signed by: Deedee Mondragon MD (01/31/2017 9:01 AM) [id number]
[2017-01-31] MEDS: POTASSIUM CHLORIDE 10 MEQ TABLET.ER. PO SCH ×2 (09:35→17:43)
[2017-01-31] MEDS: ASPIRIN ENTERIC COATED 81 MG TABLET.DR. PO SCH (09:35)
[2017-01-31] MEDS: FERROUS SULFATE 325 MG TABLET. PO SCH (09:35)
[2017-01-31] MEDS: FAMOTIDINE 20 MG TABLET. PO SCH ×2 (09:35→21:23)
[2017-01-31] MEDS: FUROSEMIDE 80 MG TABLET. PO SCH ×2 (09:35→14:13)
[2017-01-31] MEDS: CLOPIDOGREL BISULFATE 75 MG TABLET PO SCH (09:35)
[2017-01-31] MEDS: LOSARTAN POTASSIUM 50 MG TABLET. PO SCH (09:37)
[2017-01-31] MEDS: METOPROLOL TART IMMED RELEASE 50 MG TABLET. PO SCH (09:37)
[2017-01-31] MEDS: INSULIN DETEMIR 300 UNITS/3 ML INSULN.PEN. SQ SCH ×2 (10:01→21:28)
--- NOTE | 2017-01-31 10:03 | PDOC ---
PROGRESS NOTES Subjective Subjective Ms. Laguna stated that she doesn't feel great today. She had trouble going to the bathroom this morning, and felt jittery and had chest palpitations. She also felt weakness in her legs, and had to call a nurse to help her from falling. She said that she felt jittery, and that usually coincided with the feeling of her falling down. Objective Objective Vital Signs Date Time Temp Pulse Resp B/P (MAP) Pulse Ox O2 Delivery O2 Flow Rate FiO2 01/31/17 08:00 99.7 81 20 205/62 (109) 100 Nasal Cannula 3.0 99.7 Physical Exam Heart: Normal S1, Normal S2 Assessment Assessment Problems Medical Problems: (1) Congestive heart failure Status: Acute (2) Coronary artery disease Status: Acute (3) Malignant hypertension Status: Acute Plan Plan of Care Mrs. Laguna is a 62 year old female with a PMH of CAD, CHF , HTN, and a heart catheterization done 3 months ago, post -CABG, with a hypertensive emergency which caused shortness of breath. Assessment and Plan * Malignant hypertension: Had a hypertensive episode this morning. * She continues to have bradycardic episodes, may need to have a pacer inserted , will wait for neuro evaluation before deciding. Comment Review of Relevant I have reviewed the following items nolan (where applicable) has been applied. Labs Laboratory Tests Test 01/29/17 11:57 01/29/17 16:58 01/29/17 21:06 01/30/17 05:10 Glucose (Fingerstick) 159 mg/dL (70-99) 74 mg/dL (70-99) 150 mg/dL (70-99) White Blood Count 7.2 x10^3/uL (4.0-11.0) Red Blood Count 3.98 x10^6/uL (3.50-5.40) Hemoglobin 10.7 g/dL (12.0-15.5) Hematocrit 34.0 % (36.0-47.0) Mean Corpuscular Volume 85 fL (79-100) Mean Corpuscular Hemoglobin 27 pg (25-35) Mean Corpuscular Hemoglobin Concent 31 g/dL (31-37) Red Cell Distribution Width 16.0 % (11.5-14.5) Platelet Count 267 x10^3/uL (140-400) Neutrophils (%) (Auto) 70 % (31-73) Lymphocytes (%) (Auto) 20 % (24-48) Monocytes (%) (Auto) 8 % (0-9) Eosinophils (%) (Auto) 1 % (0-3) Basophils (%) (Auto) 1 % (0-3) Neutrophils # (Auto) 5.0 x10^3uL (1.8-7.7) Lymphocytes # (Auto) 1.4 x10^3/uL (1.0-4.8) Monocytes # (Auto) 0.6 x10^3/uL (0.0-1.1) Eosinophils # (Auto) 0.1 x10^3/uL (0.0-0.7) Basophils # (Auto) 0.0 x10^3/uL (0.0-0.2) Sodium Level 141 mmol/L (136-145) Potassium Level 4.1 mmol/L (3.5-5.1) Chloride Level 100 mmol/L (98-107) Carbon Dioxide Level 38 mmol/L (21-32) Anion Gap 3 (6-14) Blood Urea Nitrogen 24 mg/dL (7-20) Creatinine 1.1 mg/dL (0.6-1.0) Estimated GFR (Cockcroft-Gault) 60.7 Glucose Level 118 mg/dL (70-99) Calcium Level 9.1 mg/dL (8.5-10.1) Test 01/30/17 07:23 01/30/17 11:45 01/30/17 16:36 01/30/17 18:17 Glucose (Fingerstick) 122 mg/dL (70-99) 132 mg/dL (70-99) 57 mg/dL (70-99) 186 mg/dL (70-99) Test 01/30/17 20:20 01/31/17 05:15 01/31/17 07:09 01/31/17 08:00 Glucose (Fingerstick) 118 mg/dL (70-99) 114 mg/dL (70-99) White Blood Count 8.1 x10^3/uL (4.0-11.0) Red Blood Count 4.18 x10^6/uL (3.50-5.40) Hemoglobin 11.1 g/dL (12.0-15.5) Hematocrit 35.7 % (36.0-47.0) Mean Corpuscular Volume 85 fL (79-100) Mean Corpuscular Hemoglobin 27 pg (25-35) Mean Corpuscular Hemoglobin Concent 31 g/dL (31-37) Red Cell Distribution Width 15.9 % (11.5-14.5) Platelet Count 284 x10^3/uL (140-400) Neutrophils (%) (Auto) 74 % (31-73) Lymphocytes (%) (Auto) 17 % (24-48) Monocytes (%) (Auto) 8 % (0-9) Eosinophils (%) (Auto) 1 % (0-3) Basophils (%) (Auto) 0 % (0-3) Neutrophils # (Auto) 6.0 x10^3uL (1.8-7.7) Lymphocytes # (Auto) 1.4 x10^3/uL (1.0-4.8) Monocytes # (Auto) 0.6 x10^3/uL (0.0-1.1) Eosinophils # (Auto) 0.1 x10^3/uL (0.0-0.7) Basophils # (Auto) 0.0 x10^3/uL (0.0-0.2) Sodium Level 140 mmol/L (136-145) Potassium Level 4.9 mmol/L (3.5-5.1) Chloride Level 99 mmol/L (98-107) Carbon Dioxide Level 39 mmol/L (21-32) Anion Gap 2 (6-14) Blood Urea Nitrogen 20 mg/dL (7-20) Creatinine 0.8 mg/dL (0.6-1.0) Estimated GFR (Cockcroft-Gault) 87.7 Glucose Level 151 mg/dL (70-99) Calcium Level 9.6 mg/dL (8.5-10.1) Laboratory Tests Test 01/30/17 11:45 01/30/17 16:36 01/30/17 18:17 01/30/17 20:20 Glucose (Fingerstick) 132 mg/dL (70-99) 57 mg/dL (70-99) 186 mg/dL (70-99) 118 mg/dL (70-99) Test 01/31/17 05:15 01/31/17 07:09 01/31/17 08:00 White Blood Count 8.1 x10^3/uL (4.0-11.0) Red Blood Count 4.18 x10^6/uL (3.50-5.40) Hemoglobin 11.1 g/dL (12.0-15.5) Hematocrit 35.7 % (36.0-47.0) Mean Corpuscular Volume 85 fL (79-100) Mean Corpuscular Hemoglobin 27 pg (25-35) Mean Corpuscular Hemoglobin Concent 31 g/dL (31-37) Red Cell Distribution Width 15.9 % (11.5-14.5) Platelet Count 284 x10^3/uL (140-400) Neutrophils (%) (Auto) 74 % (31-73) Lymphocytes (%) (Auto) 17 % (24-48) Monocytes (%) (Auto) 8 % (0-9) Eosinophils (%) (Auto) 1 % (0-3) Basophils (%) (Auto) 0 % (0-3) Neutrophils # (Auto) 6.0 x10^3uL (1.8-7.7) Lymphocytes # (Auto) 1.4 x10^3/uL (1.0-4.8) Monocytes # (Auto) 0.6 x10^3/uL (0.0-1.1) Eosinophils # (Auto) 0.1 x10^3/uL (0.0-0.7) Basophils # (Auto) 0.0 x10^3/uL (0.0-0.2) Glucose (Fingerstick) 114 mg/dL (70-99) Sodium Level 140 mmol/L (136-145) Potassium Level 4.9 mmol/L (3.5-5.1) Chloride Level 99 mmol/L (98-107) Carbon Dioxide Level 39 mmol/L (21-32) Anion Gap 2 (6-14) Blood Urea Nitrogen 20 mg/dL (7-20) Creatinine 0.8 mg/dL (0.6-1.0) Estimated GFR (Cockcroft-Gault) 87.7 Glucose Level 151 mg/dL (70-99) Calcium Level 9.6 mg/dL (8.5-10.1) Medications Current Medications Fentanyl Citrate (Fentanyl 2ml Vial) 50 mcg PRN Q15MIN PRN IV PAIN GREATER THAN 3/10 Last administered on 01/29/17 08:02; Start 01/28/17 at 12:30; Stop 01/29/17 at 12:29; Status DC Sodium Chloride 1,000 ml @ 125 mls/hr Q8H IV Last administered on 01/28/17 13 :05; Start 01/28/17 at 12:21; Stop 01/28/17 at 20:20; Status DC Ondansetron HCl (Zofran) 4 mg 1X ONCE IV Last administered on 01/28/17 13:05 ; Start 01/28/17 at 12:30; Stop 01/28/17 at 12:31; Status DC Labetalol HCl (Normodyne) 20 mg 1X ONCE IVP Last administered on 01/28/17 13: 07; Start 01/28/17 at 12:30; Stop 01/28/17 at 12:33; Status DC Nicardipine HCl 50 mg/Sodium Chloride 270 ml @ 0 mls/hr CONT PRN IV SEE I/O RECORD Last administered on 01/28/17 13:33; Start 01/28/17 at 13:15; Stop 01/30 at 10:59; Status DC Ondansetron HCl (Zofran) 4 mg PRN Q8HRS PRN IV NAUSEA/VOMITING; Start 01/28/17 at 13:30; Stop 01/28/17 at 14:14; Status DC Fentanyl Citrate (Fentanyl 2ml Vial) 50 mcg PRN Q2HR PRN IV PAIN Last administered on 01/28/17 20:06; Start 01/28/17 at 13:30; Stop 01/29/17 at 13:29 ; Status DC Sodium Chloride 1,000 ml @ 0 mls/hr Q0M IV ; Start 01/28/17 at 13:29; Stop 01/29/17 at 13:28; Status DC Acetaminophen (Tylenol) 650 mg PRN Q4HRS PRN PO FEVER; Start 01/28/17 at 13:30 ; Stop 01/29/17 at 13:29; Status DC Ondansetron HCl (Zofran) 4 mg PRN Q6HRS PRN IV NAUSEA/VOMITING; Start 01/28/17 at 14:15; Stop 01/29/17 at 14:14; Status DC Acetaminophen (Tylenol) 500 mg PRN Q6HRS PRN PO MILD PAIN / TEMP; Start at 14:15 Ibuprofen (Motrin) 600 mg PRN Q6HRS PRN PO INFLAMMATION; Start 01/28/17 at 14: 15 Diphenhydramine HCl (Benadryl) 25 mg PRN QHS PRN PO INSOMNIA; Start 01/28/17 at 14:15 Aspirin (Ecotrin) 81 mg DAILY PO Last administered on 01/30/17 08:43; Start 01/29/17 at 09:00 Atorvastatin Calcium (Lipitor) 20 mg HS PO Last administered on 01/30/17 20:21 ; Start 01/28/17 at 21:00 Clopidogrel Bisulfate (Plavix) 75 mg DAILY PO Last administered on 01/30/17 08 :44; Start 01/29/17 at 09:00 Famotidine (Pepcid) 20 mg BID PO Last administered on 01/30/17 20:21; Start 01/28/17 at 21:00 Ferrous Sulfate (Feosol) 325 mg DAILY PO Last administered on 01/30/17 08:43; Start 01/29/17 at 09:00 Furosemide (Lasix) 80 mg BID92 PO Last administered on 01/30/17 13:04; Start 01/28/17 at 15:00 Insulin Aspart (NovoLOG) 20 units TIDWMEALS SQ Last administered on 01/30/17 18:36; Start 01/28/17 at 17:00 Insulin Detemir (Levemir) 32 units BID SQ Last administered on 01/30/17 20:27 ; Start 01/28/17 at 21:00 Metoprolol Tartrate (Lopressor) 25 mg BID PO ; Start 01/28/17 at 21:00; Stop at 21:00; Status DC Nitroglycerin (Nitrostat) 0.4 mg PRN Q5MIN PRN SL CHEST PAIN; Start 01/28/17 at 14:15 Oxycodone/ Acetaminophen (Percocet 10/325) 1 tab PRN QID PRN PO MODERATE PAIN Last administered on 01/29/17 18:01; Start 01/28/17 at 14:15 Oxycodone/ Acetaminophen (Percocet 10/325) 2 tab PRN Q6HRS PRN PO SEVERE PAIN Last administered on 01/31/17 02:37; Start 01/28/17 at 14:15 Potassium Chloride (Klor-Con) 10 meq BIDWMEALS PO Last administered on 18:33; Start 01/28/17 at 17:00 Insulin Aspart (NovoLOG) 0-9 UNITS TIDWMEALS SQ Last administered on 01/29/17 12:28; Start 01/28/17 at 17:00 Dextrose (Dextrose 50%-Water Syringe) 12.5 gm PRN Q15MIN PRN IV SEE COMMENTS; Start 01/28/17 at 15:15 Losartan Potassium (Cozaar) 100 mg DAILY PO Last administered on 01/30/17 14: 23; Start 01/28/17 at 16:00 Metoprolol Tartrate (Lopressor) 50 mg BID PO Last administered on 01/30/17 08: 44; Start 01/28/17 at 21:00; Stop 01/30/17 at 15:27; Status DC Ondansetron HCl (Zofran) 4 mg PRN Q6HRS PRN IV NAUSEA/VOMITING Last administered on 01/29/17 17:58; Start 01/29/17 at 17:45 Metoprolol Tartrate (Lopressor) 50 mg DAILY PO ; Start 01/31/17 at 09:00 Metoprolol Tartrate (Lopressor) 25 mg QHS PO Last administered on 01/30/17 20: 23; Start 01/30/17 at 21:00 Labetalol HCl (Normodyne) 10 mg PRN Q2HR PRN IVP HYPERTENSION, SEE COMMENTS; Start 01/31/17 at 07:45 Active Scripts Active Percocet 10-325 Mg Tablet (Oxycodone/Acetaminophen) 1 Each Tablet 1 Tab PO Q6- 8HRS PRN Lasix (Furosemide) 80 Mg Tablet 1 Tab PO BID Reported Metoprolol Tartrate 50 Mg Tablet 1 Tab PO BID Ferrous Sulfate 325 Mg Tablet 1 Tab PO DAILY NITROGLYCERIN SubLingual (Nitroglycerin) 0.4 Mg Tab.subl 0.4 Mg SL PRN Q5MIN PRN Percocet 10-325 Mg Tablet (Oxycodone/Acetaminophen) 1 Each Tablet 2 Tab PO PRN Q6HRS PRN Levemir Flextouch (Insulin Detemir) 100 Unit/1 Ml Insuln.pen 32 Unit SQ BID Novolog Flexpen (Insulin Aspart) 100 Unit/1 Ml Insuln.pen 20 Unit SQ TIDWMEALS Atorvastatin Calcium 20 Mg Tablet 20 Mg PO HS Potassium Chloride 10 Meq Capsule.er 10 Meq PO BID Aspir 81 (Aspirin) 81 Mg Tablet.dr 1 Tab PO DAILY Clopidogrel (Clopidogrel Bisulfate) 75 Mg Tablet 1 Tab PO DAILY Famotidine 20 Mg Tablet 20 Mg PO BID Vitals/I & O Vital Sign - Last 24 Hours 01/30/17 01/30/17 01/30/17 01/30/17 11:05 14:22 14:23 15:24 Temp 98.9 97.7 98.9 97.7 Pulse 73 53 55 Resp 20 18 20 B/P (MAP) 125/44 (71) 133/56 138/70 (92) Pulse Ox 98 98 O2 Delivery Nasal Cannula Nasal Cannula Nasal Cannula O2 Flow Rate 3.0 2.0 3.0 01/30/17 01/30/17 01/30/17 01/30/17 15:30 19:20 19:54 20:22 Temp 98.2 98.2 Pulse 69 Resp 20 21 B/P (MAP) 107/35 (59) Pulse Ox 94 O2 Delivery Room Air Nasal Cannula Nasal Cannula Nasal Cannula O2 Flow Rate 3.0 2.0 01/30/17 01/30/17 01/31/17 01/31/17 20:23 23:30 02:37 03:51 Temp 97.7 98.0 97.7 98.0 Pulse 69 55 74 Resp 18 19 B/P (MAP) 107/35 114/42 (66) 136/43 (74) Pulse Ox 95 97 O2 Delivery Nasal Cannula Nasal Cannula Nasal Cannula O2 Flow Rate 3.0 3.0 01/31/17 08:00 Temp 99.7 99.7 Pulse 81 Resp 20 B/P (MAP) 205/62 (109) Pulse Ox 100 O2 Delivery Nasal Cannula O2 Flow Rate 3.0 LIZBET LINDSAY MD Jan 31, 2017 10:03
[2017-01-31 11:35] VITALS: BP 133/76
--- NOTE | 2017-01-31 13:11 | PDOC ---
PROGRESS NOTES Chief Complaint Chief Complaint HTN emergency POA, resolved LAbile HTN DM 2 Obesity BMI 41 CAD CHF History of Present Illness History of Present Illness This is a nice 62 year old lady who was admitted to the hospital with a cc of malignant HTN. Today the pt. was examined at bedside. Pt. has was resting comfortably in the chair and had a nasal cannula in place. She states that in the morning when she was walking to the restroom, she felt "ready to fall," dizzy and jittery, and had to be escorted by the nurses to bed. Plan was discussed with the pt and RN. SNU evaluation placed. Pt. is being followed by cardiology re: malignant HTN. For now, will continue to monitor. Vitals Vitals Vital Signs Date Time Temp Pulse Resp B/P (MAP) Pulse Ox O2 Delivery O2 Flow Rate FiO2 01/31/17 11:35 98.3 55 20 133/76 (95) 94 Nasal Cannula 3.0 98.3 Physical Exam General: Alert, Oriented X3, Cooperative Heart: Normal S1, Normal S2 Lungs: Clear Abdomen: Normal bowel sounds, Soft Extremities: Normal pulses, Other (1+ edema) Skin: No rashes, No breakdown, No significant lesion Labs LABS Laboratory Tests Test 01/30/17 16:36 01/30/17 18:17 01/30/17 20:20 01/31/17 05:15 Glucose (Fingerstick) 57 mg/dL (70-99) 186 mg/dL (70-99) 118 mg/dL (70-99) White Blood Count 8.1 x10^3/uL (4.0-11.0) Red Blood Count 4.18 x10^6/uL (3.50-5.40) Hemoglobin 11.1 g/dL (12.0-15.5) Hematocrit 35.7 % (36.0-47.0) Mean Corpuscular Volume 85 fL (79-100) Mean Corpuscular Hemoglobin 27 pg (25-35) Mean Corpuscular Hemoglobin Concent 31 g/dL (31-37) Red Cell Distribution Width 15.9 % (11.5-14.5) Platelet Count 284 x10^3/uL (140-400) Neutrophils (%) (Auto) 74 % (31-73) Lymphocytes (%) (Auto) 17 % (24-48) Monocytes (%) (Auto) 8 % (0-9) Eosinophils (%) (Auto) 1 % (0-3) Basophils (%) (Auto) 0 % (0-3) Neutrophils # (Auto) 6.0 x10^3uL (1.8-7.7) Lymphocytes # (Auto) 1.4 x10^3/uL (1.0-4.8) Monocytes # (Auto) 0.6 x10^3/uL (0.0-1.1) Eosinophils # (Auto) 0.1 x10^3/uL (0.0-0.7) Basophils # (Auto) 0.0 x10^3/uL (0.0-0.2) Test 01/31/17 07:09 01/31/17 08:00 01/31/17 11:52 Glucose (Fingerstick) 114 mg/dL (70-99) 130 mg/dL (70-99) Sodium Level 140 mmol/L (136-145) Potassium Level 4.9 mmol/L (3.5-5.1) Chloride Level 99 mmol/L (98-107) Carbon Dioxide Level 39 mmol/L (21-32) Anion Gap 2 (6-14) Blood Urea Nitrogen 20 mg/dL (7-20) Creatinine 0.8 mg/dL (0.6-1.0) Estimated GFR (Cockcroft-Gault) 87.7 Glucose Level 151 mg/dL (70-99) Calcium Level 9.6 mg/dL (8.5-10.1) Review of Systems Review of Systems fatigue and weakness Assessment and Plan Assessmemt and Plan Problems Medical Problems: (1) Congestive heart failure Status: Acute (2) Coronary artery disease Status: Acute (3) Malignant hypertension Status: Acute Assessment: HTN emergency POA, resolved LAbile HTN DM 2 Obesity BMI 41 CAD CHF Plan: Continue current medications Agree with cardiology recommendation Continue cardiac medication Recheck labs PT/OT SNU evaluation Problems: Comment Review of Relevant I have reviewed the following items nolan (where applicable) has been applied. Labs Laboratory Tests Test 01/29/17 16:58 01/29/17 21:06 01/30/17 05:10 01/30/17 07:23 Glucose (Fingerstick) 74 mg/dL (70-99) 150 mg/dL (70-99) 122 mg/dL (70-99) White Blood Count 7.2 x10^3/uL (4.0-11.0) Red Blood Count 3.98 x10^6/uL (3.50-5.40) Hemoglobin 10.7 g/dL (12.0-15.5) Hematocrit 34.0 % (36.0-47.0) Mean Corpuscular Volume 85 fL (79-100) Mean Corpuscular Hemoglobin 27 pg (25-35) Mean Corpuscular Hemoglobin Concent 31 g/dL (31-37) Red Cell Distribution Width 16.0 % (11.5-14.5) Platelet Count 267 x10^3/uL (140-400) Neutrophils (%) (Auto) 70 % (31-73) Lymphocytes (%) (Auto) 20 % (24-48) Monocytes (%) (Auto) 8 % (0-9) Eosinophils (%) (Auto) 1 % (0-3) Basophils (%) (Auto) 1 % (0-3) Neutrophils # (Auto) 5.0 x10^3uL (1.8-7.7) Lymphocytes # (Auto) 1.4 x10^3/uL (1.0-4.8) Monocytes # (Auto) 0.6 x10^3/uL (0.0-1.1) Eosinophils # (Auto) 0.1 x10^3/uL (0.0-0.7) Basophils # (Auto) 0.0 x10^3/uL (0.0-0.2) Sodium Level 141 mmol/L (136-145) Potassium Level 4.1 mmol/L (3.5-5.1) Chloride Level 100 mmol/L (98-107) Carbon Dioxide Level 38 mmol/L (21-32) Anion Gap 3 (6-14) Blood Urea Nitrogen 24 mg/dL (7-20) Creatinine 1.1 mg/dL (0.6-1.0) Estimated GFR (Cockcroft-Gault) 60.7 Glucose Level 118 mg/dL (70-99) Calcium Level 9.1 mg/dL (8.5-10.1) Test 01/30/17 11:45 01/30/17 16:36 01/30/17 18:17 01/30/17 20:20 Glucose (Fingerstick) 132 mg/dL (70-99) 57 mg/dL (70-99) 186 mg/dL (70-99) 118 mg/dL (70-99) Test 01/31/17 05:15 01/31/17 07:09 01/31/17 08:00 01/31/17 11:52 White Blood Count 8.1 x10^3/uL (4.0-11.0) Red Blood Count 4.18 x10^6/uL (3.50-5.40) Hemoglobin 11.1 g/dL (12.0-15.5) Hematocrit 35.7 % (36.0-47.0) Mean Corpuscular Volume 85 fL (79-100) Mean Corpuscular Hemoglobin 27 pg (25-35) Mean Corpuscular Hemoglobin Concent 31 g/dL (31-37) Red Cell Distribution Width 15.9 % (11.5-14.5) Platelet Count 284 x10^3/uL (140-400) Neutrophils (%) (Auto) 74 % (31-73) Lymphocytes (%) (Auto) 17 % (24-48) Monocytes (%) (Auto) 8 % (0-9) Eosinophils (%) (Auto) 1 % (0-3) Basophils (%) (Auto) 0 % (0-3) Neutrophils # (Auto) 6.0 x10^3uL (1.8-7.7) Lymphocytes # (Auto) 1.4 x10^3/uL (1.0-4.8) Monocytes # (Auto) 0.6 x10^3/uL (0.0-1.1) Eosinophils # (Auto) 0.1 x10^3/uL (0.0-0.7) Basophils # (Auto) 0.0 x10^3/uL (0.0-0.2) Glucose (Fingerstick) 114 mg/dL (70-99) 130 mg/dL (70-99) Sodium Level 140 mmol/L (136-145) Potassium Level 4.9 mmol/L (3.5-5.1) Chloride Level 99 mmol/L (98-107) Carbon Dioxide Level 39 mmol/L (21-32) Anion Gap 2 (6-14) Blood Urea Nitrogen 20 mg/dL (7-20) Creatinine 0.8 mg/dL (0.6-1.0) Estimated GFR (Cockcroft-Gault) 87.7 Glucose Level 151 mg/dL (70-99) Calcium Level 9.6 mg/dL (8.5-10.1) Laboratory Tests Test 01/30/17 16:36 01/30/17 18:17 01/30/17 20:20 01/31/17 05:15 Glucose (Fingerstick) 57 mg/dL (70-99) 186 mg/dL (70-99) 118 mg/dL (70-99) White Blood Count 8.1 x10^3/uL (4.0-11.0) Red Blood Count 4.18 x10^6/uL (3.50-5.40) Hemoglobin 11.1 g/dL (12.0-15.5) Hematocrit 35.7 % (36.0-47.0) Mean Corpuscular Volume 85 fL (79-100) Mean Corpuscular Hemoglobin 27 pg (25-35) Mean Corpuscular Hemoglobin Concent 31 g/dL (31-37) Red Cell Distribution Width 15.9 % (11.5-14.5) Platelet Count 284 x10^3/uL (140-400) Neutrophils (%) (Auto) 74 % (31-73) Lymphocytes (%) (Auto) 17 % (24-48) Monocytes (%) (Auto) 8 % (0-9) Eosinophils (%) (Auto) 1 % (0-3) Basophils (%) (Auto) 0 % (0-3) Neutrophils # (Auto) 6.0 x10^3uL (1.8-7.7) Lymphocytes # (Auto) 1.4 x10^3/uL (1.0-4.8) Monocytes # (Auto) 0.6 x10^3/uL (0.0-1.1) Eosinophils # (Auto) 0.1 x10^3/uL (0.0-0.7) Basophils # (Auto) 0.0 x10^3/uL (0.0-0.2) Test 01/31/17 07:09 01/31/17 08:00 01/31/17 11:52 Glucose (Fingerstick) 114 mg/dL (70-99) 130 mg/dL (70-99) Sodium Level 140 mmol/L (136-145) Potassium Level 4.9 mmol/L (3.5-5.1) Chloride Level 99 mmol/L (98-107) Carbon Dioxide Level 39 mmol/L (21-32) Anion Gap 2 (6-14) Blood Urea Nitrogen 20 mg/dL (7-20) Creatinine 0.8 mg/dL (0.6-1.0) Estimated GFR (Cockcroft-Gault) 87.7 Glucose Level 151 mg/dL (70-99) Calcium Level 9.6 mg/dL (8.5-10.1) Medications Current Medications Fentanyl Citrate (Fentanyl 2ml Vial) 50 mcg PRN Q15MIN PRN IV PAIN GREATER THAN 3/10 Last administered on 01/29/17 08:02; Start 01/28/17 at 12:30; Stop 01/29/17 at 12:29; Status DC Sodium Chloride 1,000 ml @ 125 mls/hr Q8H IV Last administered on 01/28/17 13 :05; Start 01/28/17 at 12:21; Stop 01/28/17 at 20:20; Status DC Ondansetron HCl (Zofran) 4 mg 1X ONCE IV Last administered on 01/28/17 13:05 ; Start 01/28/17 at 12:30; Stop 01/28/17 at 12:31; Status DC Labetalol HCl (Normodyne) 20 mg 1X ONCE IVP Last administered on 01/28/17 13: 07; Start 01/28/17 at 12:30; Stop 01/28/17 at 12:33; Status DC Nicardipine HCl 50 mg/Sodium Chloride 270 ml @ 0 mls/hr CONT PRN IV SEE I/O RECORD Last administered on 01/28/17 13:33; Start 01/28/17 at 13:15; Stop 01/30 at 10:59; Status DC Ondansetron HCl (Zofran) 4 mg PRN Q8HRS PRN IV NAUSEA/VOMITING; Start 01/28/17 at 13:30; Stop 01/28/17 at 14:14; Status DC Fentanyl Citrate (Fentanyl 2ml Vial) 50 mcg PRN Q2HR PRN IV PAIN Last administered on 01/28/17 20:06; Start 01/28/17 at 13:30; Stop 01/29/17 at 13:29 ; Status DC Sodium Chloride 1,000 ml @ 0 mls/hr Q0M IV ; Start 01/28/17 at 13:29; Stop 01/29/17 at 13:28; Status DC Acetaminophen (Tylenol) 650 mg PRN Q4HRS PRN PO FEVER; Start 01/28/17 at 13:30 ; Stop 01/29/17 at 13:29; Status DC Ondansetron HCl (Zofran) 4 mg PRN Q6HRS PRN IV NAUSEA/VOMITING; Start 01/28/17 at 14:15; Stop 01/29/17 at 14:14; Status DC Acetaminophen (Tylenol) 500 mg PRN Q6HRS PRN PO MILD PAIN / TEMP; Start at 14:15 Ibuprofen (Motrin) 600 mg PRN Q6HRS PRN PO INFLAMMATION; Start 01/28/17 at 14: 15 Diphenhydramine HCl (Benadryl) 25 mg PRN QHS PRN PO INSOMNIA; Start 01/28/17 at 14:15 Aspirin (Ecotrin) 81 mg DAILY PO Last administered on 01/31/17 09:35; Start 01/29/17 at 09:00 Atorvastatin Calcium (Lipitor) 20 mg HS PO Last administered on 01/30/17 20:21 ; Start 01/28/17 at 21:00 Clopidogrel Bisulfate (Plavix) 75 mg DAILY PO Last administered on 01/31/17 09:35; Start 01/29/17 at 09:00 Famotidine (Pepcid) 20 mg BID PO Last administered on 01/31/17 09:35; Start 01/28/17 at 21:00 Ferrous Sulfate (Feosol) 325 mg DAILY PO Last administered on 01/31/17 09:35 ; Start 01/29/17 at 09:00 Furosemide (Lasix) 80 mg [id number] PO Last administered on 01/31/17 09:35; Start 01/28/17 at 15:00 Insulin Aspart (NovoLOG) 20 units TIDWMEALS SQ Last administered on 01/31/17 13:04; Start 01/28/17 at 17:00 Insulin Detemir (Levemir) 32 units BID SQ Last administered on 01/31/17 10:01 ; Start 01/28/17 at 21:00 Metoprolol Tartrate (Lopressor) 25 mg BID PO ; Start 01/28/17 at 21:00; Stop at 21:00; Status DC Nitroglycerin (Nitrostat) 0.4 mg PRN Q5MIN PRN SL CHEST PAIN; Start 01/28/17 at 14:15 Oxycodone/ Acetaminophen (Percocet 10/325) 1 tab PRN QID PRN PO MODERATE PAIN Last administered on 01/29/17 18:01; Start 01/28/17 at 14:15 Oxycodone/ Acetaminophen (Percocet 10/325) 2 tab PRN Q6HRS PRN PO SEVERE PAIN Last administered on 01/31/17 09:45; Start 01/28/17 at 14:15 Potassium Chloride (Klor-Con) 10 meq BIDWMEALS PO Last administered on 09:35; Start 01/28/17 at 17:00 Insulin Aspart (NovoLOG) 0-9 UNITS TIDWMEALS SQ Last administered on 01/29/17 12:28; Start 01/28/17 at 17:00 Dextrose (Dextrose 50%-Water Syringe) 12.5 gm PRN Q15MIN PRN IV SEE COMMENTS; Start 01/28/17 at 15:15 Losartan Potassium (Cozaar) 100 mg DAILY PO Last administered on 01/31/17 09: 37; Start 01/28/17 at 16:00 Metoprolol Tartrate (Lopressor) 50 mg BID PO Last administered on 01/30/17 08: 44; Start 01/28/17 at 21:00; Stop 01/30/17 at 15:27; Status DC Ondansetron HCl (Zofran) 4 mg PRN Q6HRS PRN IV NAUSEA/VOMITING Last administered on 01/29/17 17:58; Start 01/29/17 at 17:45 Metoprolol Tartrate (Lopressor) 50 mg DAILY PO Last administered on 01/31/17 09:37; Start 01/31/17 at 09:00 Metoprolol Tartrate (Lopressor) 25 mg QHS PO Last administered on 01/30/17 20: 23; Start 01/30/17 at 21:00 Labetalol HCl (Normodyne) 10 mg PRN Q2HR PRN IVP HYPERTENSION, SEE COMMENTS; Start 01/31/17 at 07:45 Active Scripts Active Percocet 10-325 Mg Tablet (Oxycodone/Acetaminophen) 1 Each Tablet 1 Tab PO Q6- 8HRS PRN Lasix (Furosemide) 80 Mg Tablet 1 Tab PO BID Reported Metoprolol Tartrate 50 Mg Tablet 1 Tab PO BID Ferrous Sulfate 325 Mg Tablet 1 Tab PO DAILY NITROGLYCERIN SubLingual (Nitroglycerin) 0.4 Mg Tab.subl 0.4 Mg SL PRN Q5MIN PRN Percocet 10-325 Mg Tablet (Oxycodone/Acetaminophen) 1 Each Tablet 2 Tab PO PRN Q6HRS PRN Levemir Flextouch (Insulin Detemir) 100 Unit/1 Ml Insuln.pen 32 Unit SQ BID Novolog Flexpen (Insulin Aspart) 100 Unit/1 Ml Insuln.pen 20 Unit SQ TIDWMEALS Atorvastatin Calcium 20 Mg Tablet 20 Mg PO HS Potassium Chloride 10 Meq Capsule.er 10 Meq PO BID Aspir 81 (Aspirin) 81 Mg Tablet.dr 1 Tab PO DAILY Clopidogrel (Clopidogrel Bisulfate) 75 Mg Tablet 1 Tab PO DAILY Famotidine 20 Mg Tablet 20 Mg PO BID Vitals/I & O Vital Sign - Last 24 Hours 01/30/17 01/30/17 01/30/17 01/30/17 14:22 14:23 15:24 15:30 Temp 97.7 97.7 Pulse 53 55 Resp 18 20 20 B/P (MAP) 133/56 138/70 (92) Pulse Ox 98 O2 Delivery Nasal Cannula Nasal Cannula O2 Flow Rate 2.0 3.0 01/30/17 01/30/17 01/30/17 01/30/17 19:20 19:54 20:22 20:23 Temp 98.2 98.2 Pulse 69 69 Resp 21 B/P (MAP) 107/35 (59) 107/35 Pulse Ox 94 O2 Delivery Nasal Cannula Nasal Cannula Nasal Cannula O2 Flow Rate 3.0 2.0 01/30/17 01/31/17 01/31/17 01/31/17 23:30 02:37 03:51 08:00 Temp 97.7 98.0 99.7 97.7 98.0 99.7 Pulse 55 74 81 Resp 18 19 20 B/P (MAP) 114/42 (66) 136/43 (74) 205/62 (109) Pulse Ox 95 97 100 O2 Delivery Nasal Cannula Nasal Cannula Nasal Cannula Nasal Cannula O2 Flow Rate 3.0 3.0 3.0 01/31/17 01/31/17 01/31/17 01/31/17 09:37 09:37 09:45 10:45 Pulse 86 86 B/P (MAP) 161/58 161/58 Pulse Ox 98 O2 Delivery Nasal Cannula Nasal Cannula O2 Flow Rate 2.0 2.0 01/31/17 11:35 Temp 98.3 98.3 Pulse 55 Resp 20 B/P (MAP) 133/76 (95) Pulse Ox 94 O2 Delivery Nasal Cannula O2 Flow Rate 3.0 Intake and Output 01/31/17 01/31/17 02/01/17 15:00 23:00 07:00 Output Total 400 ml Balance -400 ml PERICO BUCHANAN III DO Jan 31, 2017 13:11
[2017-01-31 15:00] VITALS: BP 121/59
[2017-01-31 19:55] VITALS: BP 115/58
[2017-01-31] MEDS: METOPROLOL TART IMMED RELEASE 25 MG TABLET. PO SCH (21:00)
[2017-01-31] MEDS: ATORVASTATIN CALCIUM 20 MG TABLET PO SCH (21:24)
[2017-01-31 23:52] VITALS: BP 109/49
[2017-02-01] VITALS (9 sets, daily range): BP systolic 110–191; BP diastolic 30–77
[2017-02-01] MEDS: oxyCODONE/APAP 10/325 1 TAB TABLET PO PRN ×5 (01:52→20:47)
[2017-02-01 05:53] LABS: BLOOD UREA NITROGEN 19 mg/dL (7-20); CALCIUM 9.2 mg/dL (8.5-10.1); CARBON DIOXIDE 42 mmol/L (21-32); CHLORIDE 99 mmol/L (98-107); CREATININE 0.9 mg/dL (0.6-1.0); GFR 76.5; GLUCOSE 103 mg/dL (70-99); POTASSIUM 4.2 mmol/L (3.5-5.1); SODIUM 140 mmol/L (136-145)
[2017-02-01 06:06] LABS: BASO % 0 % (0-3); EOS % 1 % (0-3); HEMATOCRIT 33.8 % (36.0-47.0); HEMOGLOBIN 10.6 g/dL (12.0-15.5); LYMPH # 1.3 x10^3/uL (1.0-4.8); LYMPH % 18 % (24-48); MEAN CORPUSCULAR HEMOGLOBIN 27 pg (25-35); MEAN CORPUSCULAR HGB CONC 31 g/dL (31-37); MEAN CORPUSCULAR VOLUME 85 fL (79-100); MONO % 8 % (0-9); NEUT % 73 % (31-73); PLATELET COUNT 268 x10^3/uL (140-400); RED BLOOD COUNT 3.98 x10^6/uL (3.50-5.40); WHITE BLOOD COUNT 7.5 x10^3/uL (4.0-11.0)
[2017-02-01] MEDS: FERROUS SULFATE 325 MG TABLET. PO SCH (08:12)
[2017-02-01] MEDS: POTASSIUM CHLORIDE 10 MEQ TABLET.ER. PO SCH ×2 (08:12→17:27)
[2017-02-01] MEDS: CLOPIDOGREL BISULFATE 75 MG TABLET PO SCH (08:12)
[2017-02-01] MEDS: METOPROLOL TART IMMED RELEASE 25 MG TABLET. PO SCH ×2 (08:13→20:47)
[2017-02-01] MEDS: FUROSEMIDE 80 MG TABLET. PO SCH ×2 (08:13→13:10)
[2017-02-01] MEDS: LOSARTAN POTASSIUM 50 MG TABLET. PO SCH (08:13)
[2017-02-01] MEDS: ASPIRIN ENTERIC COATED 81 MG TABLET.DR. PO SCH (08:15)
[2017-02-01] MEDS: METOPROLOL TART IMMED RELEASE 50 MG TABLET. PO SCH (08:21)
[2017-02-01] MEDS: FAMOTIDINE 20 MG TABLET. PO SCH ×2 (08:21→20:46)
[2017-02-01] MEDS: INSULIN ASPART 300 UNITS/3 ML INSULN.PEN SQ SCH ×6 (08:24→17:30)
[2017-02-01] MEDS: INSULIN DETEMIR 300 UNITS/3 ML INSULN.PEN. SQ SCH ×2 (08:25→20:56)
--- NOTE | 2017-02-01 12:24 | PDOC ---
PROGRESS NOTES Chief Complaint Chief Complaint HTN emergency POA, resolved LAbile HTN DM 2 Obesity BMI 41 CAD CHF History of Present Illness History of Present Illness This is a nice 62 year old lady who was admitted to the hospital with a cc of malignant HTN. Today the pt. was examined at bedside. Pt. has was resting comfortably in the bed. She states that she is still having fainting episodes. Will consult neurology re: weakness and near syncope. Pt. is being followed by cardiology re: malignant HTN. For now, will continue to monitor. Vitals Vitals Vital Signs Date Time Temp Pulse Resp B/P (MAP) Pulse Ox O2 Delivery O2 Flow Rate FiO2 02/01/17 09:59 18 Room Air 02/01/17 08:21 84 191/77 02/01/17 08:14 93 2.0 02/01/17 08:07 98.6 98.6 Physical Exam General: Alert, Oriented X3, Cooperative Heart: Normal S1, Normal S2 Lungs: Clear Abdomen: Normal bowel sounds, Soft Extremities: Normal pulses, Other (1+ edema) Skin: No rashes, No breakdown, No significant lesion Labs LABS Laboratory Tests Test 01/31/17 17:07 01/31/17 21:01 02/01/17 05:00 02/01/17 08:02 Glucose (Fingerstick) 78 mg/dL (70-99) 108 mg/dL (70-99) 151 mg/dL (70-99) White Blood Count 7.5 x10^3/uL (4.0-11.0) Red Blood Count 3.98 x10^6/uL (3.50-5.40) Hemoglobin 10.6 g/dL (12.0-15.5) Hematocrit 33.8 % (36.0-47.0) Mean Corpuscular Volume 85 fL (79-100) Mean Corpuscular Hemoglobin 27 pg (25-35) Mean Corpuscular Hemoglobin Concent 31 g/dL (31-37) Red Cell Distribution Width 16.0 % (11.5-14.5) Platelet Count 268 x10^3/uL (140-400) Neutrophils (%) (Auto) 73 % (31-73) Lymphocytes (%) (Auto) 18 % (24-48) Monocytes (%) (Auto) 8 % (0-9) Eosinophils (%) (Auto) 1 % (0-3) Basophils (%) (Auto) 0 % (0-3) Neutrophils # (Auto) 5.4 x10^3uL (1.8-7.7) Lymphocytes # (Auto) 1.3 x10^3/uL (1.0-4.8) Monocytes # (Auto) 0.6 x10^3/uL (0.0-1.1) Eosinophils # (Auto) 0.1 x10^3/uL (0.0-0.7) Basophils # (Auto) 0.0 x10^3/uL (0.0-0.2) Sodium Level 140 mmol/L (136-145) Potassium Level 4.2 mmol/L (3.5-5.1) Chloride Level 99 mmol/L (98-107) Carbon Dioxide Level 42 mmol/L (21-32) Anion Gap (6-14) Blood Urea Nitrogen 19 mg/dL (7-20) Creatinine 0.9 mg/dL (0.6-1.0) Estimated GFR (Cockcroft-Gault) 76.5 Glucose Level 103 mg/dL (70-99) Calcium Level 9.2 mg/dL (8.5-10.1) Review of Systems Review of Systems fatigue and weakness Assessment and Plan Assessmemt and Plan Problems Medical Problems: (1) Congestive heart failure Status: Acute (2) Coronary artery disease Status: Acute (3) Malignant hypertension Status: Acute Assessment: HTN emergency POA, resolved LAbile HTN DM 2 Obesity BMI 41 CAD CHF Plan: Consult neurology re: weakness and near syncope Awaiting cardio input Recheck labs PT/OT Continue cardiac monitoring Continue home meds Problems: Comment Review of Relevant I have reviewed the following items nolan (where applicable) has been applied. Labs Laboratory Tests Test 01/30/17 16:36 01/30/17 18:17 01/30/17 20:20 01/31/17 05:15 Glucose (Fingerstick) 57 mg/dL (70-99) 186 mg/dL (70-99) 118 mg/dL (70-99) White Blood Count 8.1 x10^3/uL (4.0-11.0) Red Blood Count 4.18 x10^6/uL (3.50-5.40) Hemoglobin 11.1 g/dL (12.0-15.5) Hematocrit 35.7 % (36.0-47.0) Mean Corpuscular Volume 85 fL (79-100) Mean Corpuscular Hemoglobin 27 pg (25-35) Mean Corpuscular Hemoglobin Concent 31 g/dL (31-37) Red Cell Distribution Width 15.9 % (11.5-14.5) Platelet Count 284 x10^3/uL (140-400) Neutrophils (%) (Auto) 74 % (31-73) Lymphocytes (%) (Auto) 17 % (24-48) Monocytes (%) (Auto) 8 % (0-9) Eosinophils (%) (Auto) 1 % (0-3) Basophils (%) (Auto) 0 % (0-3) Neutrophils # (Auto) 6.0 x10^3uL (1.8-7.7) Lymphocytes # (Auto) 1.4 x10^3/uL (1.0-4.8) Monocytes # (Auto) 0.6 x10^3/uL (0.0-1.1) Eosinophils # (Auto) 0.1 x10^3/uL (0.0-0.7) Basophils # (Auto) 0.0 x10^3/uL (0.0-0.2) Test 01/31/17 07:09 01/31/17 08:00 01/31/17 11:52 01/31/17 17:07 Glucose (Fingerstick) 114 mg/dL (70-99) 130 mg/dL (70-99) 78 mg/dL (70-99) Sodium Level 140 mmol/L (136-145) Potassium Level 4.9 mmol/L (3.5-5.1) Chloride Level 99 mmol/L (98-107) Carbon Dioxide Level 39 mmol/L (21-32) Anion Gap 2 (6-14) Blood Urea Nitrogen 20 mg/dL (7-20) Creatinine 0.8 mg/dL (0.6-1.0) Estimated GFR (Cockcroft-Gault) 87.7 Glucose Level 151 mg/dL (70-99) Calcium Level 9.6 mg/dL (8.5-10.1) Test 01/31/17 21:01 02/01/17 05:00 02/01/17 08:02 Glucose (Fingerstick) 108 mg/dL (70-99) 151 mg/dL (70-99) White Blood Count 7.5 x10^3/uL (4.0-11.0) Red Blood Count 3.98 x10^6/uL (3.50-5.40) Hemoglobin 10.6 g/dL (12.0-15.5) Hematocrit 33.8 % (36.0-47.0) Mean Corpuscular Volume 85 fL (79-100) Mean Corpuscular Hemoglobin 27 pg (25-35) Mean Corpuscular Hemoglobin Concent 31 g/dL (31-37) Red Cell Distribution Width 16.0 % (11.5-14.5) Platelet Count 268 x10^3/uL (140-400) Neutrophils (%) (Auto) 73 % (31-73) Lymphocytes (%) (Auto) 18 % (24-48) Monocytes (%) (Auto) 8 % (0-9) Eosinophils (%) (Auto) 1 % (0-3) Basophils (%) (Auto) 0 % (0-3) Neutrophils # (Auto) 5.4 x10^3uL (1.8-7.7) Lymphocytes # (Auto) 1.3 x10^3/uL (1.0-4.8) Monocytes # (Auto) 0.6 x10^3/uL (0.0-1.1) Eosinophils # (Auto) 0.1 x10^3/uL (0.0-0.7) Basophils # (Auto) 0.0 x10^3/uL (0.0-0.2) Sodium Level 140 mmol/L (136-145) Potassium Level 4.2 mmol/L (3.5-5.1) Chloride Level 99 mmol/L (98-107) Carbon Dioxide Level 42 mmol/L (21-32) Anion Gap (6-14) Blood Urea Nitrogen 19 mg/dL (7-20) Creatinine 0.9 mg/dL (0.6-1.0) Estimated GFR (Cockcroft-Gault) 76.5 Glucose Level 103 mg/dL (70-99) Calcium Level 9.2 mg/dL (8.5-10.1) Laboratory Tests Test 01/31/17 17:07 01/31/17 21:01 02/01/17 05:00 02/01/17 08:02 Glucose (Fingerstick) 78 mg/dL (70-99) 108 mg/dL (70-99) 151 mg/dL (70-99) White Blood Count 7.5 x10^3/uL (4.0-11.0) Red Blood Count 3.98 x10^6/uL (3.50-5.40) Hemoglobin 10.6 g/dL (12.0-15.5) Hematocrit 33.8 % (36.0-47.0) Mean Corpuscular Volume 85 fL (79-100) Mean Corpuscular Hemoglobin 27 pg (25-35) Mean Corpuscular Hemoglobin Concent 31 g/dL (31-37) Red Cell Distribution Width 16.0 % (11.5-14.5) Platelet Count 268 x10^3/uL (140-400) Neutrophils (%) (Auto) 73 % (31-73) Lymphocytes (%) (Auto) 18 % (24-48) Monocytes (%) (Auto) 8 % (0-9) Eosinophils (%) (Auto) 1 % (0-3) Basophils (%) (Auto) 0 % (0-3) Neutrophils # (Auto) 5.4 x10^3uL (1.8-7.7) Lymphocytes # (Auto) 1.3 x10^3/uL (1.0-4.8) Monocytes # (Auto) 0.6 x10^3/uL (0.0-1.1) Eosinophils # (Auto) 0.1 x10^3/uL (0.0-0.7) Basophils # (Auto) 0.0 x10^3/uL (0.0-0.2) Sodium Level 140 mmol/L (136-145) Potassium Level 4.2 mmol/L (3.5-5.1) Chloride Level 99 mmol/L (98-107) Carbon Dioxide Level 42 mmol/L (21-32) Anion Gap (6-14) Blood Urea Nitrogen 19 mg/dL (7-20) Creatinine 0.9 mg/dL (0.6-1.0) Estimated GFR (Cockcroft-Gault) 76.5 Glucose Level 103 mg/dL (70-99) Calcium Level 9.2 mg/dL (8.5-10.1) Medications Current Medications Fentanyl Citrate (Fentanyl 2ml Vial) 50 mcg PRN Q15MIN PRN IV PAIN GREATER THAN 3/10 Last administered on 01/29/17 08:02; Start 01/28/17 at 12:30; Stop 01/29/17 at 12:29; Status DC Sodium Chloride 1,000 ml @ 125 mls/hr Q8H IV Last administered on 01/28/17 13 :05; Start 01/28/17 at 12:21; Stop 01/28/17 at 20:20; Status DC Ondansetron HCl (Zofran) 4 mg 1X ONCE IV Last administered on 01/28/17 13:05 ; Start 01/28/17 at 12:30; Stop 01/28/17 at 12:31; Status DC Labetalol HCl (Normodyne) 20 mg 1X ONCE IVP Last administered on 01/28/17 13: 07; Start 01/28/17 at 12:30; Stop 01/28/17 at 12:33; Status DC Nicardipine HCl 50 mg/Sodium Chloride 270 ml @ 0 mls/hr CONT PRN IV SEE I/O RECORD Last administered on 01/28/17 13:33; Start 01/28/17 at 13:15; Stop 01/30 at 10:59; Status DC Ondansetron HCl (Zofran) 4 mg PRN Q8HRS PRN IV NAUSEA/VOMITING; Start 01/28/17 at 13:30; Stop 01/28/17 at 14:14; Status DC Fentanyl Citrate (Fentanyl 2ml Vial) 50 mcg PRN Q2HR PRN IV PAIN Last administered on 01/28/17 20:06; Start 01/28/17 at 13:30; Stop 01/29/17 at 13:29 ; Status DC Sodium Chloride 1,000 ml @ 0 mls/hr Q0M IV ; Start 01/28/17 at 13:29; Stop 01/29/17 at 13:28; Status DC Acetaminophen (Tylenol) 650 mg PRN Q4HRS PRN PO FEVER; Start 01/28/17 at 13:30 ; Stop 01/29/17 at 13:29; Status DC Ondansetron HCl (Zofran) 4 mg PRN Q6HRS PRN IV NAUSEA/VOMITING; Start 01/28/17 at 14:15; Stop 01/29/17 at 14:14; Status DC Acetaminophen (Tylenol) 500 mg PRN Q6HRS PRN PO MILD PAIN / TEMP; Start at 14:15 Ibuprofen (Motrin) 600 mg PRN Q6HRS PRN PO INFLAMMATION; Start 01/28/17 at 14: 15 Diphenhydramine HCl (Benadryl) 25 mg PRN QHS PRN PO INSOMNIA; Start 01/28/17 at 14:15 Aspirin (Ecotrin) 81 mg DAILY PO Last administered on 02/01/17 08:15; Start 01/29/17 at 09:00 Atorvastatin Calcium (Lipitor) 20 mg HS PO Last administered on 01/31/17 21: 24; Start 01/28/17 at 21:00 Clopidogrel Bisulfate (Plavix) 75 mg DAILY PO Last administered on 02/01/17 08:12; Start 01/29/17 at 09:00 Famotidine (Pepcid) 20 mg BID PO Last administered on 02/01/17 08:21; Start 01/28/17 at 21:00 Ferrous Sulfate (Feosol) 325 mg DAILY PO Last administered on 02/01/17 08:12 ; Start 01/29/17 at 09:00 Furosemide (Lasix) 80 mg BID92 PO Last administered on 02/01/17 08:13; Start 01/28/17 at 15:00 Insulin Aspart (NovoLOG) 20 units TIDWMEALS SQ Last administered on 02/01/17 08:24; Start 01/28/17 at 17:00 Insulin Detemir (Levemir) 32 units BID SQ Last administered on 02/01/17 08:25 ; Start 01/28/17 at 21:00 Metoprolol Tartrate (Lopressor) 25 mg BID PO ; Start 01/28/17 at 21:00; Stop at 21:00; Status DC Nitroglycerin (Nitrostat) 0.4 mg PRN Q5MIN PRN SL CHEST PAIN; Start 01/28/17 at 14:15 Oxycodone/ Acetaminophen (Percocet 10/325) 1 tab PRN QID PRN PO MODERATE PAIN Last administered on 01/29/17 18:01; Start 01/28/17 at 14:15 Oxycodone/ Acetaminophen (Percocet 10/325) 2 tab PRN Q6HRS PRN PO SEVERE PAIN Last administered on 02/01/17 08:14; Start 01/28/17 at 14:15 Potassium Chloride (Klor-Con) 10 meq BIDWMEALS PO Last administered on 08:12; Start 01/28/17 at 17:00 Insulin Aspart (NovoLOG) 0-9 UNITS TIDWMEALS SQ Last administered on 08:26; Start 01/28/17 at 17:00 Dextrose (Dextrose 50%-Water Syringe) 12.5 gm PRN Q15MIN PRN IV SEE COMMENTS; Start 01/28/17 at 15:15 Losartan Potassium (Cozaar) 100 mg DAILY PO Last administered on 02/01/17 08: 13; Start 01/28/17 at 16:00 Metoprolol Tartrate (Lopressor) 50 mg BID PO Last administered on 01/30/17 08: 44; Start 01/28/17 at 21:00; Stop 01/30/17 at 15:27; Status DC Ondansetron HCl (Zofran) 4 mg PRN Q6HRS PRN IV NAUSEA/VOMITING Last administered on 01/29/17 17:58; Start 01/29/17 at 17:45 Metoprolol Tartrate (Lopressor) 50 mg DAILY PO Last administered on 02/01/17 08:21; Start 01/31/17 at 09:00 Metoprolol Tartrate (Lopressor) 25 mg QHS PO Last administered on 01/30/17 20: 23; Start 01/30/17 at 21:00 Labetalol HCl (Normodyne) 10 mg PRN Q2HR PRN IVP HYPERTENSION, SEE COMMENTS; Start 01/31/17 at 07:45 Active Scripts Active Percocet 10-325 Mg Tablet (Oxycodone/Acetaminophen) 1 Each Tablet 1 Tab PO Q6- 8HRS PRN Lasix (Furosemide) 80 Mg Tablet 1 Tab PO BID Reported Metoprolol Tartrate 50 Mg Tablet 1 Tab PO BID Ferrous Sulfate 325 Mg Tablet 1 Tab PO DAILY NITROGLYCERIN SubLingual (Nitroglycerin) 0.4 Mg Tab.subl 0.4 Mg SL PRN Q5MIN PRN Percocet 10-325 Mg Tablet (Oxycodone/Acetaminophen) 1 Each Tablet 2 Tab PO PRN Q6HRS PRN Levemir Flextouch (Insulin Detemir) 100 Unit/1 Ml Insuln.pen 32 Unit SQ BID Novolog Flexpen (Insulin Aspart) 100 Unit/1 Ml Insuln.pen 20 Unit SQ TIDWMEALS Atorvastatin Calcium 20 Mg Tablet 20 Mg PO HS Potassium Chloride 10 Meq Capsule.er 10 Meq PO BID Aspir 81 (Aspirin) 81 Mg Tablet. 1 Tab PO DAILY Clopidogrel (Clopidogrel Bisulfate) 75 Mg Tablet 1 Tab PO DAILY Famotidine 20 Mg Tablet 20 Mg PO BID Vitals/I & O Vital Sign - Last 24 Hours 01/31/17 01/31/17 01/31/17 01/31/17 15:00 17:43 19:55 20:05 Temp 98.1 98.3 98.1 98.3 Pulse 52 52 Resp 18 19 B/P (MAP) 121/59 (79) 115/58 (77) Pulse Ox 100 96 O2 Delivery Nasal Cannula Nasal Cannula Nasal Cannula Nasal Cannula O2 Flow Rate 3.0 2.0 2.0 2.0 01/31/17 02/01/17 02/01/17 02/01/17 23:52 01:53 03:40 03:45 Temp 97.9 97.9 97.9 97.9 Pulse 68 68 Resp 18 20 18 B/P (MAP) 109/49 (69) 129/53 (78) Pulse Ox 98 76 93 O2 Delivery Nasal Cannula Nasal Cannula Room Air Nasal Cannula O2 Flow Rate 2.0 2.0 02/01/17 02/01/17 02/01/17 02/01/17 07:00 08:00 08:07 08:13 Temp 98.6 98.6 98.6 98.6 Pulse 84 84 84 Resp 20 20 B/P (MAP) 191/76 (114) 191/77 (115) 191/77 Pulse Ox 98 93 O2 Delivery Nasal Cannula Nasal Cannula Nasal Cannula O2 Flow Rate 2.0 2.0 2.0 02/01/17 02/01/17 02/01/17 08:14 08:21 09:59 Pulse 84 Resp 20 18 B/P (MAP) 191/77 Pulse Ox 93 O2 Delivery Nasal Cannula Room Air O2 Flow Rate 2.0 PERICO BUCHANAN III DO Feb 01, 2017 12:24
--- NOTE | 2017-02-01 15:53 | PDOC ---
PROGRESS NOTES Subjective Subjective Patient continues to have more episodes of bradycardia. I have discussed the case with Dr. 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 I discussed this with the patient as well as her situation options and risks for the procedure. The patient is being evaluated by neurology and they requested that if the patient was going to need a pacemaker that it would need to be an MRI compatible pacemaker Objective Objective Vital Signs Date Time Temp Pulse Resp B/P (MAP) Pulse Ox O2 Delivery O2 Flow Rate FiO2 02/01/17 14:21 18 Nasal Cannula 2.0 02/01/17 13:47 75 181/73 (109) 02/01/17 12:00 98.5 90 98.5 Physical Exam Physical Exam No significant changes and cardiac exam Assessment Assessment I agree with the patient's current medications for her blood pressure. This patient will need a permanent dual-chamber MRI compatible pacemaker. I attempted to schedule this on Friday but the schedule is already full. The procedure for the insertion of the dual-chamber pacemaker was scheduled for Friday. Comment Review of Relevant I have reviewed the following items nolan (where applicable) has been applied. Labs Laboratory Tests Test 01/30/17 16:36 01/30/17 18:17 01/30/17 20:20 01/31/17 05:15 Glucose (Fingerstick) 57 mg/dL (70-99) 186 mg/dL (70-99) 118 mg/dL (70-99) White Blood Count 8.1 x10^3/uL (4.0-11.0) Red Blood Count 4.18 x10^6/uL (3.50-5.40) Hemoglobin 11.1 g/dL (12.0-15.5) Hematocrit 35.7 % (36.0-47.0) Mean Corpuscular Volume 85 fL (79-100) Mean Corpuscular Hemoglobin 27 pg (25-35) Mean Corpuscular Hemoglobin Concent 31 g/dL (31-37) Red Cell Distribution Width 15.9 % (11.5-14.5) Platelet Count 284 x10^3/uL (140-400) Neutrophils (%) (Auto) 74 % (31-73) Lymphocytes (%) (Auto) 17 % (24-48) Monocytes (%) (Auto) 8 % (0-9) Eosinophils (%) (Auto) 1 % (0-3) Basophils (%) (Auto) 0 % (0-3) Neutrophils # (Auto) 6.0 x10^3uL (1.8-7.7) Lymphocytes # (Auto) 1.4 x10^3/uL (1.0-4.8) Monocytes # (Auto) 0.6 x10^3/uL (0.0-1.1) Eosinophils # (Auto) 0.1 x10^3/uL (0.0-0.7) Basophils # (Auto) 0.0 x10^3/uL (0.0-0.2) Test 01/31/17 07:09 01/31/17 08:00 01/31/17 11:52 01/31/17 17:07 Glucose (Fingerstick) 114 mg/dL (70-99) 130 mg/dL (70-99) 78 mg/dL (70-99) Sodium Level 140 mmol/L (136-145) Potassium Level 4.9 mmol/L (3.5-5.1) Chloride Level 99 mmol/L (98-107) Carbon Dioxide Level 39 mmol/L (21-32) Anion Gap 2 (6-14) Blood Urea Nitrogen 20 mg/dL (7-20) Creatinine 0.8 mg/dL (0.6-1.0) Estimated GFR (Cockcroft-Gault) 87.7 Glucose Level 151 mg/dL (70-99) Calcium Level 9.6 mg/dL (8.5-10.1) Test 01/31/17 21:01 02/01/17 05:00 02/01/17 08:02 02/01/17 11:48 Glucose (Fingerstick) 108 mg/dL (70-99) 151 mg/dL (70-99) 113 mg/dL (70-99) White Blood Count 7.5 x10^3/uL (4.0-11.0) Red Blood Count 3.98 x10^6/uL (3.50-5.40) Hemoglobin 10.6 g/dL (12.0-15.5) Hematocrit 33.8 % (36.0-47.0) Mean Corpuscular Volume 85 fL (79-100) Mean Corpuscular Hemoglobin 27 pg (25-35) Mean Corpuscular Hemoglobin Concent 31 g/dL (31-37) Red Cell Distribution Width 16.0 % (11.5-14.5) Platelet Count 268 x10^3/uL (140-400) Neutrophils (%) (Auto) 73 % (31-73) Lymphocytes (%) (Auto) 18 % (24-48) Monocytes (%) (Auto) 8 % (0-9) Eosinophils (%) (Auto) 1 % (0-3) Basophils (%) (Auto) 0 % (0-3) Neutrophils # (Auto) 5.4 x10^3uL (1.8-7.7) Lymphocytes # (Auto) 1.3 x10^3/uL (1.0-4.8) Monocytes # (Auto) 0.6 x10^3/uL (0.0-1.1) Eosinophils # (Auto) 0.1 x10^3/uL (0.0-0.7) Basophils # (Auto) 0.0 x10^3/uL (0.0-0.2) Sodium Level 140 mmol/L (136-145) Potassium Level 4.2 mmol/L (3.5-5.1) Chloride Level 99 mmol/L (98-107) Carbon Dioxide Level 42 mmol/L (21-32) Anion Gap (6-14) Blood Urea Nitrogen 19 mg/dL (7-20) Creatinine 0.9 mg/dL (0.6-1.0) Estimated GFR (Cockcroft-Gault) 76.5 Glucose Level 103 mg/dL (70-99) Calcium Level 9.2 mg/dL (8.5-10.1) Laboratory Tests Test 01/31/17 17:07 01/31/17 21:01 02/01/17 05:00 02/01/17 08:02 Glucose (Fingerstick) 78 mg/dL (70-99) 108 mg/dL (70-99) 151 mg/dL (70-99) White Blood Count 7.5 x10^3/uL (4.0-11.0) Red Blood Count 3.98 x10^6/uL (3.50-5.40) Hemoglobin 10.6 g/dL (12.0-15.5) Hematocrit 33.8 % (36.0-47.0) Mean Corpuscular Volume 85 fL (79-100) Mean Corpuscular Hemoglobin 27 pg (25-35) Mean Corpuscular Hemoglobin Concent 31 g/dL (31-37) Red Cell Distribution Width 16.0 % (11.5-14.5) Platelet Count 268 x10^3/uL (140-400) Neutrophils (%) (Auto) 73 % (31-73) Lymphocytes (%) (Auto) 18 % (24-48) Monocytes (%) (Auto) 8 % (0-9) Eosinophils (%) (Auto) 1 % (0-3) Basophils (%) (Auto) 0 % (0-3) Neutrophils # (Auto) 5.4 x10^3uL (1.8-7.7) Lymphocytes # (Auto) 1.3 x10^3/uL (1.0-4.8) Monocytes # (Auto) 0.6 x10^3/uL (0.0-1.1) Eosinophils # (Auto) 0.1 x10^3/uL (0.0-0.7) Basophils # (Auto) 0.0 x10^3/uL (0.0-0.2) Sodium Level 140 mmol/L (136-145) Potassium Level 4.2 mmol/L (3.5-5.1) Chloride Level 99 mmol/L (98-107) Carbon Dioxide Level 42 mmol/L (21-32) Anion Gap (6-14) Blood Urea Nitrogen 19 mg/dL (7-20) Creatinine 0.9 mg/dL (0.6-1.0) Estimated GFR (Cockcroft-Gault) 76.5 Glucose Level 103 mg/dL (70-99) Calcium Level 9.2 mg/dL (8.5-10.1) Test 02/01/17 11:48 Glucose (Fingerstick) 113 mg/dL (70-99) Medications Current Medications Fentanyl Citrate (Fentanyl 2ml Vial) 50 mcg PRN Q15MIN PRN IV PAIN GREATER THAN 3/10 Last administered on 01/29/17t 08:02; Start 01/28/17 at 12:30; Stop 01/29/17 at 12:29; Status DC Sodium Chloride 1,000 ml @ 125 mls/hr Q8H IV Last administered on 01/28/17 13 :05; Start 01/28/17 at 12:21; Stop 01/28/17 at 20:20; Status DC Ondansetron HCl (Zofran) 4 mg 1X ONCE IV Last administered on 01/28/17 13:05 ; Start 01/28/17 at 12:30; Stop 01/28/17 at 12:31; Status DC Labetalol HCl (Normodyne) 20 mg 1X ONCE IVP Last administered on 01/28/17 13: 07; Start 01/28/17 at 12:30; Stop 01/28/17 at 12:33; Status DC Nicardipine HCl 50 mg/Sodium Chloride 270 ml @ 0 mls/hr CONT PRN IV SEE I/O RECORD Last administered on 01/28/17 13:33; Start 01/28/17 at 13:15; Stop 01/30 at 10:59; Status DC Ondansetron HCl (Zofran) 4 mg PRN Q8HRS PRN IV NAUSEA/VOMITING; Start 01/28/17 at 13:30; Stop 01/28/17 at 14:14; Status DC Fentanyl Citrate (Fentanyl 2ml Vial) 50 mcg PRN Q2HR PRN IV PAIN Last administered on 01/28/17 20:06; Start 01/28/17 at 13:30; Stop 01/29/17 at 13:29 ; Status DC Sodium Chloride 1,000 ml @ 0 mls/hr Q0M IV ; Start 01/28/17 at 13:29; Stop 01/29/17 at 13:28; Status DC Acetaminophen (Tylenol) 650 mg PRN Q4HRS PRN PO FEVER; Start 01/28/17 at 13:30 ; Stop 01/29/17 at 13:29; Status DC Ondansetron HCl (Zofran) 4 mg PRN Q6HRS PRN IV NAUSEA/VOMITING; Start 01/28/17 at 14:15; Stop 01/29/17 at 14:14; Status DC Acetaminophen (Tylenol) 500 mg PRN Q6HRS PRN PO MILD PAIN / TEMP; Start at 14:15 Ibuprofen (Motrin) 600 mg PRN Q6HRS PRN PO INFLAMMATION; Start 01/28/17 at 14: 15 Diphenhydramine HCl (Benadryl) 25 mg PRN QHS PRN PO INSOMNIA; Start 01/28/17 at 14:15 Aspirin (Ecotrin) 81 mg DAILY PO Last administered on 02/01/17 08:15; Start 01/29/17 at 09:00 Atorvastatin Calcium (Lipitor) 20 mg HS PO Last administered on 01/31/17 21: 24; Start 01/28/17 at 21:00 Clopidogrel Bisulfate (Plavix) 75 mg DAILY PO Last administered on 02/01/17 08:12; Start 01/29/17 at 09:00 Famotidine (Pepcid) 20 mg BID PO Last administered on 02/01/17 08:21; Start 01/28/17 at 21:00 Ferrous Sulfate (Feosol) 325 mg DAILY PO Last administered on 02/01/17 08:12 ; Start 01/29/17 at 09:00 Furosemide (Lasix) 80 mg [id number] PO Last administered on 02/01/17 13:10; Start 01/28/17 at 15:00 Insulin Aspart (NovoLOG) 20 units TIDWMEALS SQ Last administered on 02/01/17 13:14; Start 01/28/17 at 17:00 Insulin Detemir (Levemir) 32 units BID SQ Last administered on 02/01/17 08:25 ; Start 01/28/17 at 21:00 Metoprolol Tartrate (Lopressor) 25 mg BID PO ; Start 01/28/17 at 21:00; Stop at 21:00; Status DC Nitroglycerin (Nitrostat) 0.4 mg PRN Q5MIN PRN SL CHEST PAIN; Start 01/28/17 at 14:15 Oxycodone/ Acetaminophen (Percocet 10/325) 1 tab PRN QID PRN PO MODERATE PAIN Last administered on 01/29/17 18:01; Start 01/28/17 at 14:15 Oxycodone/ Acetaminophen (Percocet 10/325) 2 tab PRN Q6HRS PRN PO SEVERE PAIN Last administered on 02/01/17 14:21; Start 01/28/17 at 14:15 Potassium Chloride (Klor-Con) 10 meq BIDWMEALS PO Last administered on 08:12; Start 01/28/17 at 17:00 Insulin Aspart (NovoLOG) 0-9 UNITS TIDWMEALS SQ Last administered on 08:26; Start 01/28/17 at 17:00 Dextrose (Dextrose 50%-Water Syringe) 12.5 gm PRN Q15MIN PRN IV SEE COMMENTS; Start 01/28/17 at 15:15 Losartan Potassium (Cozaar) 100 mg DAILY PO Last administered on 02/01/17 08: 13; Start 01/28/17 at 16:00 Metoprolol Tartrate (Lopressor) 50 mg BID PO Last administered on 01/30/17 08: 44; Start 01/28/17 at 21:00; Stop 01/30/17 at 15:27; Status DC Ondansetron HCl (Zofran) 4 mg PRN Q6HRS PRN IV NAUSEA/VOMITING Last administered on 01/29/17 17:58; Start 01/29/17 at 17:45 Metoprolol Tartrate (Lopressor) 50 mg DAILY PO Last administered on 02/01/17 08:21; Start 01/31/17 at 09:00 Metoprolol Tartrate (Lopressor) 25 mg QHS PO Last administered on 01/30/17 20: 23; Start 01/30/17 at 21:00 Labetalol HCl (Normodyne) 10 mg PRN Q2HR PRN IVP HYPERTENSION, SEE COMMENTS; Start 01/31/17 at 07:45 Active Scripts Active Percocet 10-325 Mg Tablet (Oxycodone/Acetaminophen) 1 Each Tablet 1 Tab PO Q6- 8HRS PRN Lasix (Furosemide) 80 Mg Tablet 1 Tab PO BID Reported Metoprolol Tartrate 50 Mg Tablet 1 Tab PO BID Ferrous Sulfate 325 Mg Tablet 1 Tab PO DAILY NITROGLYCERIN SubLingual (Nitroglycerin) 0.4 Mg Tab.subl 0.4 Mg SL PRN Q5MIN PRN Percocet 10-325 Mg Tablet (Oxycodone/Acetaminophen) 1 Each Tablet 2 Tab PO PRN Q6HRS PRN Levemir Flextouch (Insulin Detemir) 100 Unit/1 Ml Insuln.pen 32 Unit SQ BID Novolog Flexpen (Insulin Aspart) 100 Unit/1 Ml Insuln.pen 20 Unit SQ TIDWMEALS Atorvastatin Calcium 20 Mg Tablet 20 Mg PO HS Potassium Chloride 10 Meq Capsule.er 10 Meq PO BID Aspir 81 (Aspirin) 81 Mg Tablet.dr 1 Tab PO DAILY Clopidogrel (Clopidogrel Bisulfate) 75 Mg Tablet 1 Tab PO DAILY Famotidine 20 Mg Tablet 20 Mg PO BID Vitals/I & O Vital Sign - Last 24 Hours 01/31/17 01/31/17 01/31/17 01/31/17 17:43 19:55 20:05 23:52 Temp 98.3 97.9 98.3 97.9 Pulse 52 68 Resp 19 18 B/P (MAP) 115/58 (77) 109/49 (69) Pulse Ox 96 98 O2 Delivery Nasal Cannula Nasal Cannula Nasal Cannula Nasal Cannula O2 Flow Rate 2.0 2.0 2.0 2.0 02/01/17 02/01/17 02/01/17 02/01/17 01:53 03:40 03:45 07:00 Temp 97.9 98.6 97.9 98.6 Pulse 68 84 Resp 20 18 20 B/P (MAP) 129/53 (78) 191/76 (114) Pulse Ox 76 93 98 O2 Delivery Nasal Cannula Room Air Nasal Cannula Nasal Cannula O2 Flow Rate 2.0 2.0 02/01/17 02/01/17 02/01/17 02/01/17 08:00 08:07 08:13 08:14 Temp 98.6 98.6 Pulse 84 84 Resp 20 20 B/P (MAP) 191/77 (115) 191/77 Pulse Ox 93 93 O2 Delivery Nasal Cannula Nasal Cannula Nasal Cannula O2 Flow Rate 2.0 2.0 2.0 02/01/17 02/01/17 02/01/17 02/01/17 08:21 09:59 12:00 13:46 Temp 98.5 98.5 Pulse 84 51 60 Resp 18 20 B/P (MAP) 191/77 112/30 (57) 128/35 (66) Pulse Ox 90 O2 Delivery Room Air Nasal Cannula O2 Flow Rate 2.0 02/01/17 02/01/17 02/01/17 13:47 13:47 14:21 Pulse 68 75 Resp 18 B/P (MAP) 142/63 (89) 181/73 (109) O2 Delivery Nasal Cannula O2 Flow Rate 2.0 LIZBET LINDSAY MD Feb 01, 2017 15:53
[2017-02-01] MEDS: ATORVASTATIN CALCIUM 20 MG TABLET PO SCH (20:47)
--- NOTE | 2017-02-01 23:01 | CONS ---
DATE OF CONSULTATION: 02/01/2017 REFERRING PHYSICIAN: Nani James MD REASON FOR CONSULTATION: Weakness and falls. HISTORY OF PRESENT ILLNESS: The patient is a very pleasant 62-year-old woman admitted to [facility] with chest pain. She began to have difficulty yesterday that her legs would give out when she was trying to walk. She would start to walk and lose her strength and suddenly gain it back again. The same was true with her arms. She would drop her cell phone and then be able to hold on to things again. It is much better today, although still present. She underwent orthostatic blood pressures where she would lay flat for 15 minutes, stand quickly and stand for 5 minutes. This revealed increased pulse rate and an appropriate hypertensive response, but she was not symptomatic. She overall feels much better. This has not been associated with pain or headache. There has been no alteration of her vision. The chest pain is no longer present. I spoke with Dr. Arias who noticed that for the last year, she has had episodic bradycardia which has been associated with hypotension. On this admission, she was admitted for hypertension. He feels a pacemaker would be helpful to avoid the bradycardia and hypotension while allowing us to treat the hypertension. PAST MEDICAL AND SURGICAL HISTORY: 1. Hypertension. 2. Diabetes. 3. Appendectomy. 4. Left total knee replacement. 5. Coronary artery disease. 6. History of congestive heart failure. 7. Sleep apnea, uses CPAP. 8. Diabetic peripheral polyneuropathy. 9. Cholecystectomy. 10. Coronary artery bypass surgery. 11. Breast reduction. 12. Hernia repair. ALLERGIES: No known allergies to drugs. MEDICINES PRIOR TO ADMISSION: Aspirin 81 mg, atorvastatin 20 mg, clopidogrel 75 mg, famotidine 20 mg twice per day, iron sulfate 325 mg, furosemide 80 mg twice per day, insulin, metoprolol 50 mg twice per day, nitroglycerin sublingual as needed, oxycodone/acetaminophen 1-2 tablets every 6 hours as needed, and potassium chloride extended released 10 mEq twice per day. FAMILY HISTORY: Diabetes. SOCIAL HISTORY: She has been a since around 2012. She has been living with her granddaughter who is currently . Her granddaughter works as a mri assistant in [employer]. They recently relocated from [place] back to this region. She does not smoke tobacco, drink alcohol or use recreational drugs. She is helpful that when her granddaughter's child is born, she will be able to help provide care. REVIEW OF SYSTEMS: She had a headache yesterday, but it seems better. She has had no change of vision or hearing. She has had no cognitive loss. She does not have any nose or sinus trouble. There has been no trouble with teeth or gums. She has been able to eat and swallow without choking. She has had chest pain, which is much better. She is not feeling short of breath. She is not having any abdominal pain. She does not complain of bone or joint pain. She has not had fever or rash. She does not have any gastrointestinal or genitourinary complaints. She does have numbness in her feet and legs from the diabetes. She does not complain of easy bruising, bleeding or swelling. She does have a walker, but generally walks without an assistive device. She had episode yesterday where her legs felt like they were going to give out. PHYSICAL EXAMINATION: VITAL SIGNS: The blood pressure supine was 128/35 with a pulse of 66, immediate standing 142/63 with a pulse of 89 and standing for 5 minutes 181/73 with a pulse of 109. GENERAL: She was alert, awake and cooperative. Speech was fluent and clear. She had a good fund of recent and remote knowledge. Attention and concentration was intact. She appeared well groomed and well nourished. She was well oriented. NEUROLOGIC: Examination of the cranial nerves revealed visual tripp were full to confrontation. Extraocular movements were intact. The eyes were conjugate. Pursuit movements were smooth and saccadic eye movements were without dysmetria. Pupils were 3 mm and reactive. Funduscopic exam did not reveal papilledema, exudate or hemorrhage. Facial sensation was intact. The muscles of mastication and facial expression were powerful symmetrically. Hearing was intact to finger rub. The palate arched symmetrically and the tongue was midline with full range of motion. Sternocleidomastoid and trapezius were powerful. Muscle bulk and tone was normal. There was no arm drift or abnormal movement. There was no leg drift. She did have a touch of asterixis when she stood and at times with the outstretched arms, but it was minimal. Power was full and symmetric in the upper and lower extremities. Reflexes 1/4 in the arms, trace at the knees, absent at the ankles. The toes were not upgoing. Coordination testing with [id number], [id number], fine motor and rapid alternating movements was fair. Sensory exam was intact to pain, light touch, proprioception, graphesthesia, cold thermal and vibration in the upper extremities. There was sensory shading to the mid calf in the lower extremities to light touch, sharp and pain. Proprioception was still intact. There was no extinction to double simultaneous stimulation. She is able to stand and bear weight. She is able to stand briefly on heels or toes. She could take several steps. While standing, she felt like her legs wanted to give out slightly. Romberg stance was negative. Auscultation of the carotid arteries did not reveal a bruit. Heart rhythm was regular without a murmur. Peripheral pulses were symmetric in the hands and feet. There was a slight amount of edema in the feet and ankles, but was minimal. REVIEW OF LABORATORY DATA: CBC revealed a normal white blood count and platelet count. Hemoglobin was low at 10.6, hematocrit at 33.8. The electrolytes were normal, but CO2 was elevated at 42. BUN and creatinine were normal. Glucose has been running elevated, most recently measured at 113. Calcium normal. Nasal MRSA was negative. IMAGING: Brain MRI was performed yesterday revealing no acute intracranial process. There was evidence of some small vessel disease which was chronic. CT scan of the brain revealed no acute process. There was a possible of some stroke, thus the MRI was ordered. Chest x-ray revealed mild congestive heart failure. IMPRESSION: The patient is a very pleasant 62-year-old woman who presented with chest pain. She has had difficulty with episodic bradycardic and hypotension over the last year and Dr. Arias plans on doing a cardiac pacemaker. I believe her legs giving out is actually asterixis. This may be due to some metabolic disturbances and possibly related to her blood pressure medications or narcotics. At the present time, it is minimal and seems much better. I do not see evidence for stroke. She is orthostatic and that her pulse dramatically increases from being supine to standing 5 minutes. She has delicate balance with her congestive heart failure, so medication management will have to be handled very carefully. RECOMMENDATIONS: I discussed with her how to identify the asterixis. If she gets up in the morning and she finds that her arms have a great deal of the asterixis, she should probably be careful walking as her legs will give out. She should keep an eye if it is related to the amount of narcotic usage as she will need to keep this to a minimum. She needs to keep up on her fluid intake so as not to get dehydrated. She will need to moderate her blood pressures closely at home as likely blood pressure management will be a working progress. I appreciate being involved in her care. KATIA HATFIELD MD DR: ABELARDO/amrik JOB#: [id number] / [id number]
[2017-02-02] MEDS: oxyCODONE/APAP 10/325 1 TAB TABLET PO PRN ×4 (02:59→22:09)
[2017-02-02 03:55] VITALS: BP 123/51
[2017-02-02 07:51] VITALS: BP 121/46
[2017-02-02] MEDS: INSULIN ASPART 300 UNITS/3 ML INSULN.PEN SQ SCH ×6 (07:54→18:12)
[2017-02-02] MEDS: FUROSEMIDE 80 MG TABLET. PO SCH ×2 (07:55→14:06)
[2017-02-02] MEDS: FERROUS SULFATE 325 MG TABLET. PO SCH (07:55)
[2017-02-02] MEDS: ASPIRIN ENTERIC COATED 81 MG TABLET.DR. PO SCH (07:55)
[2017-02-02] MEDS: FAMOTIDINE 20 MG TABLET. PO SCH ×2 (07:55→22:08)
[2017-02-02] MEDS: CLOPIDOGREL BISULFATE 75 MG TABLET PO SCH (07:55)
[2017-02-02] MEDS: POTASSIUM CHLORIDE 10 MEQ TABLET.ER. PO SCH ×2 (07:55→18:09)
[2017-02-02] MEDS: METOPROLOL TART IMMED RELEASE 50 MG TABLET. PO SCH (07:56)
[2017-02-02] MEDS: LOSARTAN POTASSIUM 50 MG TABLET. PO SCH (07:56)
[2017-02-02] MEDS: INSULIN DETEMIR 300 UNITS/3 ML INSULN.PEN. SQ SCH ×2 (08:01→22:12)
[2017-02-02 08:18] LABS: CALCIUM 9.2 mg/dL (8.5-10.1); CREATININE 0.9 mg/dL (0.6-1.0); GFR 76.5; POTASSIUM 4.2 mmol/L (3.5-5.1)
[2017-02-02 08:38] LABS: BASO % 0 % (0-3); EOS % 2 % (0-3); HEMATOCRIT 34.2 % (36.0-47.0); HEMOGLOBIN 10.8 g/dL (12.0-15.5); LYMPH # 1.5 x10^3/uL (1.0-4.8); LYMPH % 23 % (24-48); MEAN CORPUSCULAR HEMOGLOBIN 27 pg (25-35); MEAN CORPUSCULAR HGB CONC 32 g/dL (31-37); MEAN CORPUSCULAR VOLUME 85 fL (79-100); MONO % 9 % (0-9); NEUT % 66 % (31-73); PLATELET COUNT 260 x10^3/uL (140-400); RED BLOOD COUNT 4.02 x10^6/uL (3.50-5.40); RED CELL DISTRIBUTION WIDTH 15.6 % (11.5-14.5); WHITE BLOOD COUNT 6.3 x10^3/uL (4.0-11.0)
[2017-02-02 12:28] VITALS: BP 109/40
[2017-02-02 14:30] VITALS: BP 109/58
--- NOTE | 2017-02-02 14:30 | PDOC ---
PROGRESS NOTES Chief Complaint Chief Complaint HTN emergency POA, resolved LAbile HTN DM 2 Obesity BMI 41 CAD CHF History of Present Illness History of Present Illness This is a nice 62 year old lady who was admitted to the hospital with a cc of malignant HTN. Today the pt. was examined at bedside. Pt. has was resting comfortably in the chair with nasal cannula in place. Some distant heart sounds were present. Pt. is scheduled to have PPM put in on Fri. Pt is being followed by neurology re: weakness and near syncope, and cardiology re: malignant HTN. For now, will continue to monitor. Vitals Vitals Vital Signs Date Time Temp Pulse Resp B/P (MAP) Pulse Ox O2 Delivery O2 Flow Rate FiO2 02/02/17 12:28 98.4 46 18 109/40 (63) 91 Nasal Cannula 2.0 98.4 Physical Exam General: Alert, Oriented X3, Cooperative Heart: Normal S1, Normal S2 Lungs: Clear Abdomen: Normal bowel sounds, Soft Extremities: Normal pulses, Other (1+ edema) Skin: No rashes, No breakdown, No significant lesion Labs LABS Laboratory Tests Test 02/01/17 16:21 02/01/17 20:52 02/02/17 07:15 02/02/17 07:35 Glucose (Fingerstick) 121 mg/dL (70-99) 89 mg/dL (70-99) 119 mg/dL (70-99) White Blood Count 6.3 x10^3/uL (4.0-11.0) Red Blood Count 4.02 x10^6/uL (3.50-5.40) Hemoglobin 10.8 g/dL (12.0-15.5) Hematocrit 34.2 % (36.0-47.0) Mean Corpuscular Volume 85 fL (79-100) Mean Corpuscular Hemoglobin 27 pg (25-35) Mean Corpuscular Hemoglobin Concent 32 g/dL (31-37) Red Cell Distribution Width 15.6 % (11.5-14.5) Platelet Count 260 x10^3/uL (140-400) Neutrophils (%) (Auto) 66 % (31-73) Lymphocytes (%) (Auto) 23 % (24-48) Monocytes (%) (Auto) 9 % (0-9) Eosinophils (%) (Auto) 2 % (0-3) Basophils (%) (Auto) 0 % (0-3) Neutrophils # (Auto) 4.2 x10^3uL (1.8-7.7) Lymphocytes # (Auto) 1.5 x10^3/uL (1.0-4.8) Monocytes # (Auto) 0.6 x10^3/uL (0.0-1.1) Eosinophils # (Auto) 0.1 x10^3/uL (0.0-0.7) Basophils # (Auto) 0.0 x10^3/uL (0.0-0.2) Sodium Level 141 mmol/L (136-145) Potassium Level 4.2 mmol/L (3.5-5.1) Chloride Level 97 mmol/L (98-107) Carbon Dioxide Level 44 mmol/L (21-32) Anion Gap 0 (6-14) Blood Urea Nitrogen 20 mg/dL (7-20) Creatinine 0.9 mg/dL (0.6-1.0) Estimated GFR (Cockcroft-Gault) 76.5 Glucose Level 120 mg/dL (70-99) Calcium Level 9.2 mg/dL (8.5-10.1) Test 02/02/17 11:36 Glucose (Fingerstick) 146 mg/dL (70-99) Review of Systems Review of Systems fatigue and weakness Assessment and Plan Assessmemt and Plan Problems Medical Problems: (1) Congestive heart failure Status: Acute (2) Coronary artery disease Status: Acute (3) Malignant hypertension Status: Acute Assessment: HTN emergency POA, resolved LAbile HTN DM 2 Obesity BMI 41 CAD CHF Plan: PPM scheduled for Wed Recheck labs PT/OT Continue home meds Continue cardiac monitoring Continue O2 Problems: Comment Review of Relevant I have reviewed the following items nolan (where applicable) has been applied. Labs Laboratory Tests Test 01/31/17 17:07 01/31/17 21:01 02/01/17 05:00 02/01/17 08:02 Glucose (Fingerstick) 78 mg/dL (70-99) 108 mg/dL (70-99) 151 mg/dL (70-99) White Blood Count 7.5 x10^3/uL (4.0-11.0) Red Blood Count 3.98 x10^6/uL (3.50-5.40) Hemoglobin 10.6 g/dL (12.0-15.5) Hematocrit 33.8 % (36.0-47.0) Mean Corpuscular Volume 85 fL (79-100) Mean Corpuscular Hemoglobin 27 pg (25-35) Mean Corpuscular Hemoglobin Concent 31 g/dL (31-37) Red Cell Distribution Width 16.0 % (11.5-14.5) Platelet Count 268 x10^3/uL (140-400) Neutrophils (%) (Auto) 73 % (31-73) Lymphocytes (%) (Auto) 18 % (24-48) Monocytes (%) (Auto) 8 % (0-9) Eosinophils (%) (Auto) 1 % (0-3) Basophils (%) (Auto) 0 % (0-3) Neutrophils # (Auto) 5.4 x10^3uL (1.8-7.7) Lymphocytes # (Auto) 1.3 x10^3/uL (1.0-4.8) Monocytes # (Auto) 0.6 x10^3/uL (0.0-1.1) Eosinophils # (Auto) 0.1 x10^3/uL (0.0-0.7) Basophils # (Auto) 0.0 x10^3/uL (0.0-0.2) Sodium Level 140 mmol/L (136-145) Potassium Level 4.2 mmol/L (3.5-5.1) Chloride Level 99 mmol/L (98-107) Carbon Dioxide Level 42 mmol/L (21-32) Anion Gap (6-14) Blood Urea Nitrogen 19 mg/dL (7-20) Creatinine 0.9 mg/dL (0.6-1.0) Estimated GFR (Cockcroft-Gault) 76.5 Glucose Level 103 mg/dL (70-99) Calcium Level 9.2 mg/dL (8.5-10.1) Test 02/01/17 11:48 02/01/17 16:21 02/01/17 20:52 02/02/17 07:15 Glucose (Fingerstick) 113 mg/dL (70-99) 121 mg/dL (70-99) 89 mg/dL (70-99) 119 mg/dL (70-99) Test 02/02/17 07:35 02/02/17 11:36 White Blood Count 6.3 x10^3/uL (4.0-11.0) Red Blood Count 4.02 x10^6/uL (3.50-5.40) Hemoglobin 10.8 g/dL (12.0-15.5) Hematocrit 34.2 % (36.0-47.0) Mean Corpuscular Volume 85 fL (79-100) Mean Corpuscular Hemoglobin 27 pg (25-35) Mean Corpuscular Hemoglobin Concent 32 g/dL (31-37) Red Cell Distribution Width 15.6 % (11.5-14.5) Platelet Count 260 x10^3/uL (140-400) Neutrophils (%) (Auto) 66 % (31-73) Lymphocytes (%) (Auto) 23 % (24-48) Monocytes (%) (Auto) 9 % (0-9) Eosinophils (%) (Auto) 2 % (0-3) Basophils (%) (Auto) 0 % (0-3) Neutrophils # (Auto) 4.2 x10^3uL (1.8-7.7) Lymphocytes # (Auto) 1.5 x10^3/uL (1.0-4.8) Monocytes # (Auto) 0.6 x10^3/uL (0.0-1.1) Eosinophils # (Auto) 0.1 x10^3/uL (0.0-0.7) Basophils # (Auto) 0.0 x10^3/uL (0.0-0.2) Sodium Level 141 mmol/L (136-145) Potassium Level 4.2 mmol/L (3.5-5.1) Chloride Level 97 mmol/L (98-107) Carbon Dioxide Level 44 mmol/L (21-32) Anion Gap 0 (6-14) Blood Urea Nitrogen 20 mg/dL (7-20) Creatinine 0.9 mg/dL (0.6-1.0) Estimated GFR (Cockcroft-Gault) 76.5 Glucose Level 120 mg/dL (70-99) Calcium Level 9.2 mg/dL (8.5-10.1) Glucose (Fingerstick) 146 mg/dL (70-99) Laboratory Tests Test 02/01/17 16:21 02/01/17 20:52 02/02/17 07:15 02/02/17 07:35 Glucose (Fingerstick) 121 mg/dL (70-99) 89 mg/dL (70-99) 119 mg/dL (70-99) White Blood Count 6.3 x10^3/uL (4.0-11.0) Red Blood Count 4.02 x10^6/uL (3.50-5.40) Hemoglobin 10.8 g/dL (12.0-15.5) Hematocrit 34.2 % (36.0-47.0) Mean Corpuscular Volume 85 fL (79-100) Mean Corpuscular Hemoglobin 27 pg (25-35) Mean Corpuscular Hemoglobin Concent 32 g/dL (31-37) Red Cell Distribution Width 15.6 % (11.5-14.5) Platelet Count 260 x10^3/uL (140-400) Neutrophils (%) (Auto) 66 % (31-73) Lymphocytes (%) (Auto) 23 % (24-48) Monocytes (%) (Auto) 9 % (0-9) Eosinophils (%) (Auto) 2 % (0-3) Basophils (%) (Auto) 0 % (0-3) Neutrophils # (Auto) 4.2 x10^3uL (1.8-7.7) Lymphocytes # (Auto) 1.5 x10^3/uL (1.0-4.8) Monocytes # (Auto) 0.6 x10^3/uL (0.0-1.1) Eosinophils # (Auto) 0.1 x10^3/uL (0.0-0.7) Basophils # (Auto) 0.0 x10^3/uL (0.0-0.2) Sodium Level 141 mmol/L (136-145) Potassium Level 4.2 mmol/L (3.5-5.1) Chloride Level 97 mmol/L (98-107) Carbon Dioxide Level 44 mmol/L (21-32) Anion Gap 0 (6-14) Blood Urea Nitrogen 20 mg/dL (7-20) Creatinine 0.9 mg/dL (0.6-1.0) Estimated GFR (Cockcroft-Gault) 76.5 Glucose Level 120 mg/dL (70-99) Calcium Level 9.2 mg/dL (8.5-10.1) Test 02/02/17 11:36 Glucose (Fingerstick) 146 mg/dL (70-99) Medications Current Medications Fentanyl Citrate (Fentanyl 2ml Vial) 50 mcg PRN Q15MIN PRN IV PAIN GREATER THAN 3/10 Last administered on 01/29/17 08:02; Start 01/28/17 at 12:30; Stop 01/29/17 at 12:29; Status DC Sodium Chloride 1,000 ml @ 125 mls/hr Q8H IV Last administered on 01/28/17 13 :05; Start 01/28/17 at 12:21; Stop 01/28/17 at 20:20; Status DC Ondansetron HCl (Zofran) 4 mg 1X ONCE IV Last administered on 01/28/17 13:05 ; Start 01/28/17 at 12:30; Stop 01/28/17 at 12:31; Status DC Labetalol HCl (Normodyne) 20 mg 1X ONCE IVP Last administered on 01/28/17 13: 07; Start 01/28/17 at 12:30; Stop 01/28/17 at 12:33; Status DC Nicardipine HCl 50 mg/Sodium Chloride 270 ml @ 0 mls/hr CONT PRN IV SEE I/O RECORD Last administered on 01/28/17 13:33; Start 01/28/17 at 13:15; Stop 01/30 at 10:59; Status DC Ondansetron HCl (Zofran) 4 mg PRN Q8HRS PRN IV NAUSEA/VOMITING; Start 01/28/17 at 13:30; Stop 01/28/17 at 14:14; Status DC Fentanyl Citrate (Fentanyl 2ml Vial) 50 mcg PRN Q2HR PRN IV PAIN Last administered on 01/28/17 20:06; Start 01/28/17 at 13:30; Stop 01/29/17 at 13:29 ; Status DC Sodium Chloride 1,000 ml @ 0 mls/hr Q0M IV ; Start 01/28/17 at 13:29; Stop 01/29/17 at 13:28; Status DC Acetaminophen (Tylenol) 650 mg PRN Q4HRS PRN PO FEVER; Start 01/28/17 at 13:30 ; Stop 01/29/17 at 13:29; Status DC Ondansetron HCl (Zofran) 4 mg PRN Q6HRS PRN IV NAUSEA/VOMITING; Start 01/28/17 at 14:15; Stop 01/29/17 at 14:14; Status DC Acetaminophen (Tylenol) 500 mg PRN Q6HRS PRN PO MILD PAIN / TEMP; Start at 14:15 Ibuprofen (Motrin) 600 mg PRN Q6HRS PRN PO INFLAMMATION; Start 01/28/17 at 14: 15 Diphenhydramine HCl (Benadryl) 25 mg PRN QHS PRN PO INSOMNIA; Start 01/28/17 at 14:15 Aspirin (Ecotrin) 81 mg DAILY PO Last administered on 02/02/17 07:55; Start 01/29/17 at 09:00 Atorvastatin Calcium (Lipitor) 20 mg HS PO Last administered on 02/01/17 20: 47; Start 01/28/17 at 21:00 Clopidogrel Bisulfate (Plavix) 75 mg DAILY PO Last administered on 02/02/17 07:55; Start 01/29/17 at 09:00 Famotidine (Pepcid) 20 mg BID PO Last administered on 02/02/17 07:55; Start 01/28/17 at 21:00 Ferrous Sulfate (Feosol) 325 mg DAILY PO Last administered on 02/02/17 07:55 ; Start 01/29/17 at 09:00 Furosemide (Lasix) 80 mg [id number] PO Last administered on 02/02/17 14:06; Start 01/28/17 at 15:00 Insulin Aspart (NovoLOG) 20 units TIDWMEALS SQ Last administered on 02/02/17 12:21; Start 01/28/17 at 17:00 Insulin Detemir (Levemir) 32 units BID SQ Last administered on 02/02/17 08:01 ; Start 01/28/17 at 21:00 Metoprolol Tartrate (Lopressor) 25 mg BID PO ; Start 01/28/17 at 21:00; Stop at 21:00; Status DC Nitroglycerin (Nitrostat) 0.4 mg PRN Q5MIN PRN SL CHEST PAIN; Start 01/28/17 at 14:15 Oxycodone/ Acetaminophen (Percocet 10/325) 1 tab PRN QID PRN PO MODERATE PAIN Last administered on 01/29/17 18:01; Start 01/28/17 at 14:15 Oxycodone/ Acetaminophen (Percocet 10/325) 2 tab PRN Q6HRS PRN PO SEVERE PAIN Last administered on 02/02/17 09:13; Start 01/28/17 at 14:15 Potassium Chloride (Klor-Con) 10 meq BIDWMEALS PO Last administered on 07:55; Start 01/28/17 at 17:00 Insulin Aspart (NovoLOG) 0-9 UNITS TIDWMEALS SQ Last administered on 08:26; Start 01/28/17 at 17:00 Dextrose (Dextrose 50%-Water Syringe) 12.5 gm PRN Q15MIN PRN IV SEE COMMENTS; Start 01/28/17 at 15:15 Losartan Potassium (Cozaar) 100 mg DAILY PO Last administered on 02/02/17 07: 56; Start 01/28/17 at 16:00 Metoprolol Tartrate (Lopressor) 50 mg BID PO Last administered on 01/30/17 08: 44; Start 01/28/17 at 21:00; Stop 01/30/17 at 15:27; Status DC Ondansetron HCl (Zofran) 4 mg PRN Q6HRS PRN IV NAUSEA/VOMITING Last administered on 01/29/17 17:58; Start 01/29/17 at 17:45 Metoprolol Tartrate (Lopressor) 50 mg DAILY PO Last administered on 02/02/17 07:56; Start 01/31/17 at 09:00 Metoprolol Tartrate (Lopressor) 25 mg QHS PO Last administered on 02/01/17 20 :47; Start 01/30/17 at 21:00 Labetalol HCl (Normodyne) 10 mg PRN Q2HR PRN IVP HYPERTENSION, SEE COMMENTS; Start 01/31/17 at 07:45 Active Scripts Active Percocet 10-325 Mg Tablet (Oxycodone/Acetaminophen) 1 Each Tablet 1 Tab PO Q6- 8HRS PRN Lasix (Furosemide) 80 Mg Tablet 1 Tab PO BID Reported Metoprolol Tartrate 50 Mg Tablet 1 Tab PO BID Ferrous Sulfate 325 Mg Tablet 1 Tab PO DAILY NITROGLYCERIN SubLingual (Nitroglycerin) 0.4 Mg Tab.subl 0.4 Mg SL PRN Q5MIN PRN Percocet 10-325 Mg Tablet (Oxycodone/Acetaminophen) 1 Each Tablet 2 Tab PO PRN Q6HRS PRN Levemir Flextouch (Insulin Detemir) 100 Unit/1 Ml Insuln.pen 32 Unit SQ BID Novolog Flexpen (Insulin Aspart) 100 Unit/1 Ml Insuln.pen 20 Unit SQ TIDWMEALS Atorvastatin Calcium 20 Mg Tablet 20 Mg PO HS Potassium Chloride 10 Meq Capsule.er 10 Meq PO BID Aspir 81 (Aspirin) 81 Mg Tablet.dr 1 Tab PO DAILY Clopidogrel (Clopidogrel Bisulfate) 75 Mg Tablet 1 Tab PO DAILY Famotidine 20 Mg Tablet 20 Mg PO BID Vitals/I & O Vital Sign - Last 24 Hours 02/01/17 02/01/17 02/01/17 02/01/17 16:30 19:50 20:20 20:47 Temp 98.3 98.4 98.3 98.4 Pulse 54 61 Resp 18 22 B/P (MAP) 124/51 (75) 147/47 (80) Pulse Ox 97 98 98 O2 Delivery Nasal Cannula Nasal Cannula Nasal Cannula Nasal Cannula O2 Flow Rate 2.0 2.0 2.0 2.0 02/01/17 02/01/17 02/02/17 02/02/17 20:47 23:33 02:59 03:55 Temp 98.3 98.2 98.3 98.2 Pulse 61 52 57 Resp 22 B/P (MAP) 147/47 110/47 (68) 123/51 (75) Pulse Ox 97 97 98 O2 Delivery Nasal Cannula Nasal Cannula Nasal Cannula O2 Flow Rate 2.0 2.0 2.0 02/02/17 02/02/17 02/02/17 02/02/17 07:51 07:56 07:56 08:11 Temp 98.4 98.4 Pulse 55 55 55 Resp 18 B/P (MAP) 121/46 (71) 121/46 121/46 Pulse Ox 96 O2 Delivery Nasal Cannula Nasal Cannula O2 Flow Rate 2.0 2.0 02/02/17 02/02/17 02/02/17 09:13 12:14 12:28 Temp 98.4 98.4 Pulse 46 Resp 18 20 18 B/P (MAP) 109/40 (63) Pulse Ox 96 96 91 O2 Delivery Nasal Cannula Nasal Cannula Nasal Cannula O2 Flow Rate 2.0 2.0 2.0 Intake and Output 02/02/17 02/02/17 02/03/17 15:00 23:00 07:00 Output Total 400 ml Balance -400 ml PERICO BUCHANAN III DO Feb 02, 2017 14:30
--- NOTE | 2017-02-02 14:36 | PDOC ---
PROGRESS NOTES Subjective Subjective Chin in sinus bradycardia. No new complaints. Neurology evaluation in progress. Objective Objective Vital Signs Date Time Temp Pulse Resp B/P (MAP) Pulse Ox O2 Delivery O2 Flow Rate FiO2 02/02/17 12:28 98.4 46 18 109/40 (63) 91 Nasal Cannula 2.0 98.4 Intake and Output 02/03/17 07:00 Output Total 400 ml Balance -400 ml Output Urine Total 400 ml Physical Exam Physical Exam Significant changes and cardiac exam Assessment Assessment Patient being worked up by neurology. From a cardiac standpoint she needs a dual-chamber permanent pacemaker. Since it could not be scheduled tomorrow due to a full schedule will insert the pacemaker on Friday. Problems Medical Problems: (1) Congestive heart failure Status: Acute (2) Coronary artery disease Status: Acute (3) Malignant hypertension Status: Acute Comment Review of Relevant I have reviewed the following items nolan (where applicable) has been applied. Labs Laboratory Tests Test 01/31/17 17:07 01/31/17 21:01 02/01/17 05:00 02/01/17 08:02 Glucose (Fingerstick) 78 mg/dL (70-99) 108 mg/dL (70-99) 151 mg/dL (70-99) White Blood Count 7.5 x10^3/uL (4.0-11.0) Red Blood Count 3.98 x10^6/uL (3.50-5.40) Hemoglobin 10.6 g/dL (12.0-15.5) Hematocrit 33.8 % (36.0-47.0) Mean Corpuscular Volume 85 fL (79-100) Mean Corpuscular Hemoglobin 27 pg (25-35) Mean Corpuscular Hemoglobin Concent 31 g/dL (31-37) Red Cell Distribution Width 16.0 % (11.5-14.5) Platelet Count 268 x10^3/uL (140-400) Neutrophils (%) (Auto) 73 % (31-73) Lymphocytes (%) (Auto) 18 % (24-48) Monocytes (%) (Auto) 8 % (0-9) Eosinophils (%) (Auto) 1 % (0-3) Basophils (%) (Auto) 0 % (0-3) Neutrophils # (Auto) 5.4 x10^3uL (1.8-7.7) Lymphocytes # (Auto) 1.3 x10^3/uL (1.0-4.8) Monocytes # (Auto) 0.6 x10^3/uL (0.0-1.1) Eosinophils # (Auto) 0.1 x10^3/uL (0.0-0.7) Basophils # (Auto) 0.0 x10^3/uL (0.0-0.2) Sodium Level 140 mmol/L (136-145) Potassium Level 4.2 mmol/L (3.5-5.1) Chloride Level 99 mmol/L (98-107) Carbon Dioxide Level 42 mmol/L (21-32) Anion Gap (6-14) Blood Urea Nitrogen 19 mg/dL (7-20) Creatinine 0.9 mg/dL (0.6-1.0) Estimated GFR (Cockcroft-Gault) 76.5 Glucose Level 103 mg/dL (70-99) Calcium Level 9.2 mg/dL (8.5-10.1) Test 02/01/17 11:48 02/01/17 16:21 02/01/17 20:52 02/02/17 07:15 Glucose (Fingerstick) 113 mg/dL (70-99) 121 mg/dL (70-99) 89 mg/dL (70-99) 119 mg/dL (70-99) Test 02/02/17 07:35 02/02/17 11:36 White Blood Count 6.3 x10^3/uL (4.0-11.0) Red Blood Count 4.02 x10^6/uL (3.50-5.40) Hemoglobin 10.8 g/dL (12.0-15.5) Hematocrit 34.2 % (36.0-47.0) Mean Corpuscular Volume 85 fL (79-100) Mean Corpuscular Hemoglobin 27 pg (25-35) Mean Corpuscular Hemoglobin Concent 32 g/dL (31-37) Red Cell Distribution Width 15.6 % (11.5-14.5) Platelet Count 260 x10^3/uL (140-400) Neutrophils (%) (Auto) 66 % (31-73) Lymphocytes (%) (Auto) 23 % (24-48) Monocytes (%) (Auto) 9 % (0-9) Eosinophils (%) (Auto) 2 % (0-3) Basophils (%) (Auto) 0 % (0-3) Neutrophils # (Auto) 4.2 x10^3uL (1.8-7.7) Lymphocytes # (Auto) 1.5 x10^3/uL (1.0-4.8) Monocytes # (Auto) 0.6 x10^3/uL (0.0-1.1) Eosinophils # (Auto) 0.1 x10^3/uL (0.0-0.7) Basophils # (Auto) 0.0 x10^3/uL (0.0-0.2) Sodium Level 141 mmol/L (136-145) Potassium Level 4.2 mmol/L (3.5-5.1) Chloride Level 97 mmol/L (98-107) Carbon Dioxide Level 44 mmol/L (21-32) Anion Gap 0 (6-14) Blood Urea Nitrogen 20 mg/dL (7-20) Creatinine 0.9 mg/dL (0.6-1.0) Estimated GFR (Cockcroft-Gault) 76.5 Glucose Level 120 mg/dL (70-99) Calcium Level 9.2 mg/dL (8.5-10.1) Glucose (Fingerstick) 146 mg/dL (70-99) Laboratory Tests Test 02/01/17 16:21 02/01/17 20:52 02/02/17 07:15 02/02/17 07:35 Glucose (Fingerstick) 121 mg/dL (70-99) 89 mg/dL (70-99) 119 mg/dL (70-99) White Blood Count 6.3 x10^3/uL (4.0-11.0) Red Blood Count 4.02 x10^6/uL (3.50-5.40) Hemoglobin 10.8 g/dL (12.0-15.5) Hematocrit 34.2 % (36.0-47.0) Mean Corpuscular Volume 85 fL (79-100) Mean Corpuscular Hemoglobin 27 pg (25-35) Mean Corpuscular Hemoglobin Concent 32 g/dL (31-37) Red Cell Distribution Width 15.6 % (11.5-14.5) Platelet Count 260 x10^3/uL (140-400) Neutrophils (%) (Auto) 66 % (31-73) Lymphocytes (%) (Auto) 23 % (24-48) Monocytes (%) (Auto) 9 % (0-9) Eosinophils (%) (Auto) 2 % (0-3) Basophils (%) (Auto) 0 % (0-3) Neutrophils # (Auto) 4.2 x10^3uL (1.8-7.7) Lymphocytes # (Auto) 1.5 x10^3/uL (1.0-4.8) Monocytes # (Auto) 0.6 x10^3/uL (0.0-1.1) Eosinophils # (Auto) 0.1 x10^3/uL (0.0-0.7) Basophils # (Auto) 0.0 x10^3/uL (0.0-0.2) Sodium Level 141 mmol/L (136-145) Potassium Level 4.2 mmol/L (3.5-5.1) Chloride Level 97 mmol/L (98-107) Carbon Dioxide Level 44 mmol/L (21-32) Anion Gap 0 (6-14) Blood Urea Nitrogen 20 mg/dL (7-20) Creatinine 0.9 mg/dL (0.6-1.0) Estimated GFR (Cockcroft-Gault) 76.5 Glucose Level 120 mg/dL (70-99) Calcium Level 9.2 mg/dL (8.5-10.1) Test 02/02/17 11:36 Glucose (Fingerstick) 146 mg/dL (70-99) Medications Current Medications Fentanyl Citrate (Fentanyl 2ml Vial) 50 mcg PRN Q15MIN PRN IV PAIN GREATER THAN 3/10 Last administered on 01/29/17 08:02; Start 01/28/17 at 12:30; Stop 01/29/17 at 12:29; Status DC Sodium Chloride 1,000 ml @ 125 mls/hr Q8H IV Last administered on 01/28/17 13 :05; Start 01/28/17 at 12:21; Stop 01/28/17 at 20:20; Status DC Ondansetron HCl (Zofran) 4 mg 1X ONCE IV Last administered on 01/28/17 13:05 ; Start 01/28/17 at 12:30; Stop 01/28/17 at 12:31; Status DC Labetalol HCl (Normodyne) 20 mg 1X ONCE IVP Last administered on 01/28/17 13: 07; Start 01/28/17 at 12:30; Stop 01/28/17 at 12:33; Status DC Nicardipine HCl 50 mg/Sodium Chloride 270 ml @ 0 mls/hr CONT PRN IV SEE I/O RECORD Last administered on 01/28/17 13:33; Start 01/28/17 at 13:15; Stop 01/30 at 10:59; Status DC Ondansetron HCl (Zofran) 4 mg PRN Q8HRS PRN IV NAUSEA/VOMITING; Start 01/28/17 at 13:30; Stop 01/28/17 at 14:14; Status DC Fentanyl Citrate (Fentanyl 2ml Vial) 50 mcg PRN Q2HR PRN IV PAIN Last administered on 01/28/17 20:06; Start 01/28/17 at 13:30; Stop 01/29/17 at 13:29 ; Status DC Sodium Chloride 1,000 ml @ 0 mls/hr Q0M IV ; Start 01/28/17 at 13:29; Stop 01/29/17 at 13:28; Status DC Acetaminophen (Tylenol) 650 mg PRN Q4HRS PRN PO FEVER; Start 01/28/17 at 13:30 ; Stop 01/29/17 at 13:29; Status DC Ondansetron HCl (Zofran) 4 mg PRN Q6HRS PRN IV NAUSEA/VOMITING; Start 01/28/17 at 14:15; Stop 01/29/17 at 14:14; Status DC Acetaminophen (Tylenol) 500 mg PRN Q6HRS PRN PO MILD PAIN / TEMP; Start at 14:15 Ibuprofen (Motrin) 600 mg PRN Q6HRS PRN PO INFLAMMATION; Start 01/28/17 at 14: 15 Diphenhydramine HCl (Benadryl) 25 mg PRN QHS PRN PO INSOMNIA; Start 01/28/17 at 14:15 Aspirin (Ecotrin) 81 mg DAILY PO Last administered on 02/02/17 07:55; Start 01/29/17 at 09:00 Atorvastatin Calcium (Lipitor) 20 mg HS PO Last administered on 02/01/17 20: 47; Start 01/28/17 at 21:00 Clopidogrel Bisulfate (Plavix) 75 mg DAILY PO Last administered on 02/02/17 07:55; Start 01/29/17 at 09:00 Famotidine (Pepcid) 20 mg BID PO Last administered on 02/02/17 07:55; Start 01/28/17 at 21:00 Ferrous Sulfate (Feosol) 325 mg DAILY PO Last administered on 02/02/17 07:55 ; Start 01/29/17 at 09:00 Furosemide (Lasix) 80 mg [id number] PO Last administered on 02/02/17 14:06; Start 01/28/17 at 15:00 Insulin Aspart (NovoLOG) 20 units TIDWMEALS SQ Last administered on 02/02/17 12:21; Start 01/28/17 at 17:00 Insulin Detemir (Levemir) 32 units BID SQ Last administered on 02/02/17 08:01 ; Start 01/28/17 at 21:00 Metoprolol Tartrate (Lopressor) 25 mg BID PO ; Start 01/28/17 at 21:00; Stop at 21:00; Status DC Nitroglycerin (Nitrostat) 0.4 mg PRN Q5MIN PRN SL CHEST PAIN; Start 01/28/17 at 14:15 Oxycodone/ Acetaminophen (Percocet 10/325) 1 tab PRN QID PRN PO MODERATE PAIN Last administered on 01/29/17 18:01; Start 01/28/17 at 14:15 Oxycodone/ Acetaminophen (Percocet 10/325) 2 tab PRN Q6HRS PRN PO SEVERE PAIN Last administered on 02/02/17 09:13; Start 01/28/17 at 14:15 Potassium Chloride (Klor-Con) 10 meq BIDWMEALS PO Last administered on 07:55; Start 01/28/17 at 17:00 Insulin Aspart (NovoLOG) 0-9 UNITS TIDWMEALS SQ Last administered on 08:26; Start 01/28/17 at 17:00 Dextrose (Dextrose 50%-Water Syringe) 12.5 gm PRN Q15MIN PRN IV SEE COMMENTS; Start 01/28/17 at 15:15 Losartan Potassium (Cozaar) 100 mg DAILY PO Last administered on 02/02/17 07: 56; Start 01/28/17 at 16:00 Metoprolol Tartrate (Lopressor) 50 mg BID PO Last administered on 01/30/17 08: 44; Start 01/28/17 at 21:00; Stop 01/30/17 at 15:27; Status DC Ondansetron HCl (Zofran) 4 mg PRN Q6HRS PRN IV NAUSEA/VOMITING Last administered on 01/29/17 17:58; Start 01/29/17 at 17:45 Metoprolol Tartrate (Lopressor) 50 mg DAILY PO Last administered on 02/02/17 07:56; Start 01/31/17 at 09:00 Metoprolol Tartrate (Lopressor) 25 mg QHS PO Last administered on 02/01/17 20 :47; Start 01/30/17 at 21:00 Labetalol HCl (Normodyne) 10 mg PRN Q2HR PRN IVP HYPERTENSION, SEE COMMENTS; Start 01/31/17 at 07:45 Active Scripts Active Percocet 10-325 Mg Tablet (Oxycodone/Acetaminophen) 1 Each Tablet 1 Tab PO Q6- 8HRS PRN Lasix (Furosemide) 80 Mg Tablet 1 Tab PO BID Reported Metoprolol Tartrate 50 Mg Tablet 1 Tab PO BID Ferrous Sulfate 325 Mg Tablet 1 Tab PO DAILY NITROGLYCERIN SubLingual (Nitroglycerin) 0.4 Mg Tab.subl 0.4 Mg SL PRN Q5MIN PRN Percocet 10-325 Mg Tablet (Oxycodone/Acetaminophen) 1 Each Tablet 2 Tab PO PRN Q6HRS PRN Levemir Flextouch (Insulin Detemir) 100 Unit/1 Ml Insuln.pen 32 Unit SQ BID Novolog Flexpen (Insulin Aspart) 100 Unit/1 Ml Insuln.pen 20 Unit SQ TIDWMEALS Atorvastatin Calcium 20 Mg Tablet 20 Mg PO HS Potassium Chloride 10 Meq Capsule.er 10 Meq PO BID Aspir 81 (Aspirin) 81 Mg Tablet. 1 Tab PO DAILY Clopidogrel (Clopidogrel Bisulfate) 75 Mg Tablet 1 Tab PO DAILY Famotidine 20 Mg Tablet 20 Mg PO BID Vitals/I & O Vital Sign - Last 24 Hours 02/01/17 02/01/17 02/01/1702/01/17 16:30 19:50 20:20 20:47 Temp 98.3 98.4 98.3 98.4 Pulse 54 61 Resp 18 21 22 B/P (MAP) 124/51 (75) 147/47 (80) Pulse Ox 97 98 98 O2 Delivery Nasal Cannula Nasal Cannula Nasal Cannula Nasal Cannula O2 Flow Rate 2.0 2.0 2.0 2.0 02/01/17 02/01/17 02/02/17 02/02/17 20:47 23:33 02:59 03:55 Temp 98.3 98.2 98.3 98.2 Pulse 61 52 57 Resp 21 18 22 B/P (MAP) 147/47 110/47 (68) 123/51 (75) Pulse Ox 97 97 98 O2 Delivery Nasal Cannula Nasal Cannula Nasal Cannula O2 Flow Rate 2.0 2.0 2.0 02/02/17 02/02/17 02/02/17 02/02/17 07:51 07:56 07:56 08:11 Temp 98.4 98.4 Pulse 55 55 55 Resp 18 B/P (MAP) 121/46 (71) 121/46 121/46 Pulse Ox 96 O2 Delivery Nasal Cannula Nasal Cannula O2 Flow Rate 2.0 2.0 02/02/17 02/02/17 02/02/17 09:13 12:14 12:28 Temp 98.4 98.4 Pulse 46 Resp 18 20 18 B/P (MAP) 109/40 (63) Pulse Ox 96 96 91 O2 Delivery Nasal Cannula Nasal Cannula Nasal Cannula O2 Flow Rate 2.0 2.0 2.0 Intake and Output 02/02/17 02/02/17 02/03/17 15:00 23:00 07:00 Output Total 400 ml Balance -400 ml LIZBET LINDSAY MD Feb 02, 2017 14:36
[2017-02-02 19:45] VITALS: BP 111/41
[2017-02-02] MEDS: ATORVASTATIN CALCIUM 20 MG TABLET PO SCH (22:08)
[2017-02-02] MEDS: METOPROLOL TART IMMED RELEASE 25 MG TABLET. PO SCH (22:08)
[2017-02-02 23:10] VITALS: BP 117/39
[2017-02-03] VITALS (7 sets, daily range): BP systolic 109–154; BP diastolic 40–66
[2017-02-03] MEDS: oxyCODONE/APAP 10/325 1 TAB TABLET PO PRN ×4 (04:11→23:11)
[2017-02-03] MEDS: INSULIN ASPART 300 UNITS/3 ML INSULN.PEN SQ SCH ×6 (08:00→18:03)
[2017-02-03] MEDS: FERROUS SULFATE 325 MG TABLET. PO SCH (09:09)
[2017-02-03] MEDS: FAMOTIDINE 20 MG TABLET. PO SCH ×2 (09:09→22:06)
[2017-02-03] MEDS: ASPIRIN ENTERIC COATED 81 MG TABLET.DR. PO SCH (09:09)
[2017-02-03] MEDS: CLOPIDOGREL BISULFATE 75 MG TABLET PO SCH (09:09)
[2017-02-03] MEDS: POTASSIUM CHLORIDE 10 MEQ TABLET.ER. PO SCH ×2 (09:09→18:00)
[2017-02-03] MEDS: FUROSEMIDE 80 MG TABLET. PO SCH ×2 (09:09→13:55)
[2017-02-03] MEDS: LOSARTAN POTASSIUM 50 MG TABLET. PO SCH (09:11)
[2017-02-03] MEDS: METOPROLOL TART IMMED RELEASE 50 MG TABLET. PO SCH (09:11)
[2017-02-03] MEDS: INSULIN DETEMIR 300 UNITS/3 ML INSULN.PEN. SQ SCH ×2 (09:38→22:15)
[2017-02-03 09:41] LABS: BASO % 0 % (0-3); EOS % 1 % (0-3); HEMATOCRIT 37.4 % (36.0-47.0); HEMOGLOBIN 11.6 g/dL (12.0-15.5); LYMPH # 1.2 x10^3/uL (1.0-4.8); LYMPH % 17 % (24-48); MEAN CORPUSCULAR HEMOGLOBIN 27 pg (25-35); MEAN CORPUSCULAR HGB CONC 31 g/dL (31-37); MEAN CORPUSCULAR VOLUME 86 fL (79-100); MONO % 7 % (0-9); NEUT % 75 % (31-73); PLATELET COUNT 275 x10^3/uL (140-400); RED BLOOD COUNT 4.35 x10^6/uL (3.50-5.40); RED CELL DISTRIBUTION WIDTH 15.7 % (11.5-14.5)
[2017-02-03 09:51] LABS: ANION GAP 0 (6-14); BLOOD UREA NITROGEN 22 mg/dL (7-20); CALCIUM 9.7 mg/dL (8.5-10.1); CARBON DIOXIDE > 45 mmol/L (21-32); CHLORIDE 95 mmol/L (98-107); CREATININE 0.9 mg/dL (0.6-1.0); GFR 76.5; GLUCOSE 182 mg/dL (70-99); POTASSIUM 4.7 mmol/L (3.5-5.1); SODIUM 140 mmol/L (136-145)
--- NOTE | 2017-02-03 13:12 | PDOC ---
PROGRESS NOTES Chief Complaint Chief Complaint HTN emergency POA, resolved LAbile HTN DM 2 Obesity BMI 41 CAD history with CABG CHF, chronic stable sinus bradycardia plan: cont on metoprolol bid plan to do PPM ON FRI with dr. Royce troy dvt ppx on insulin , ssi History of Present Illness History of Present Illness This is a nice 62 year old lady who was admitted to the hospital with a cc of malignant HTN. Today the pt. was examined at bedside. Pt. has was resting comfortably in the chair with nasal cannula in place. Some distant heart sounds were present. Pt. is scheduled to have PPM put in on Fri. Pt is being followed by neurology re: weakness and near syncope, and cardiology re: malignant HTN. For now, will continue to monitor. ROS: no fever, chills, sob or chest pain HR 50s ,sometimes 80s Vitals Vitals Vital Signs Date Time Temp Pulse Resp B/P (MAP) Pulse Ox O2 Delivery O2 Flow Rate FiO2 02/03/17 11:00 Nasal Cannula 2.0 02/03/17 10:30 98.5 52 18 121/40 (67) 98 98.5 Physical Exam General: Alert, Oriented X3, Cooperative Heart: Normal S1, Normal S2 Lungs: Clear Abdomen: Normal bowel sounds, Soft Extremities: Normal pulses, Other (1+ edema) Skin: No rashes, No breakdown, No significant lesion Labs LABS Laboratory Tests Test 02/02/17 17:52 02/02/17 20:54 02/03/17 07:46 02/03/17 09:15 Glucose (Fingerstick) 73 mg/dL (70-99) 114 mg/dL (70-99) 115 mg/dL (70-99) White Blood Count 7.0 x10^3/uL (4.0-11.0) Red Blood Count 4.35 x10^6/uL (3.50-5.40) Hemoglobin 11.6 g/dL (12.0-15.5) Hematocrit 37.4 % (36.0-47.0) Mean Corpuscular Volume 86 fL (79-100) Mean Corpuscular Hemoglobin 27 pg (25-35) Mean Corpuscular Hemoglobin Concent 31 g/dL (31-37) Red Cell Distribution Width 15.7 % (11.5-14.5) Platelet Count 275 x10^3/uL (140-400) Neutrophils (%) (Auto) 75 % (31-73) Lymphocytes (%) (Auto) 17 % (24-48) Monocytes (%) (Auto) 7 % (0-9) Eosinophils (%) (Auto) 1 % (0-3) Basophils (%) (Auto) 0 % (0-3) Neutrophils # (Auto) 5.2 x10^3uL (1.8-7.7) Lymphocytes # (Auto) 1.2 x10^3/uL (1.0-4.8) Monocytes # (Auto) 0.5 x10^3/uL (0.0-1.1) Eosinophils # (Auto) 0.1 x10^3/uL (0.0-0.7) Basophils # (Auto) 0.0 x10^3/uL (0.0-0.2) Sodium Level 140 mmol/L (136-145) Potassium Level 4.7 mmol/L (3.5-5.1) Chloride Level 95 mmol/L (98-107) Carbon Dioxide Level > 45 mmol/L (21-32) Anion Gap 0 (6-14) Blood Urea Nitrogen 22 mg/dL (7-20) Creatinine 0.9 mg/dL (0.6-1.0) Estimated GFR (Cockcroft-Gault) 76.5 Glucose Level 182 mg/dL (70-99) Calcium Level 9.7 mg/dL (8.5-10.1) Test 02/03/17 11:48 Glucose (Fingerstick) 205 mg/dL (70-99) Assessment and Plan Assessmemt and Plan Problems Medical Problems: (1) Congestive heart failure Status: Acute (2) Coronary artery disease Status: Acute (3) Malignant hypertension Status: Acute Problems: Comment Review of Relevant I have reviewed the following items nolan (where applicable) has been applied. Labs Laboratory Tests Test 02/01/17 16:21 02/01/17 20:52 02/02/17 07:15 02/02/17 07:35 Glucose (Fingerstick) 121 mg/dL (70-99) 89 mg/dL (70-99) 119 mg/dL (70-99) White Blood Count 6.3 x10^3/uL (4.0-11.0) Red Blood Count 4.02 x10^6/uL (3.50-5.40) Hemoglobin 10.8 g/dL (12.0-15.5) Hematocrit 34.2 % (36.0-47.0) Mean Corpuscular Volume 85 fL (79-100) Mean Corpuscular Hemoglobin 27 pg (25-35) Mean Corpuscular Hemoglobin Concent 32 g/dL (31-37) Red Cell Distribution Width 15.6 % (11.5-14.5) Platelet Count 260 x10^3/uL (140-400) Neutrophils (%) (Auto) 66 % (31-73) Lymphocytes (%) (Auto) 23 % (24-48) Monocytes (%) (Auto) 9 % (0-9) Eosinophils (%) (Auto) 2 % (0-3) Basophils (%) (Auto) 0 % (0-3) Neutrophils # (Auto) 4.2 x10^3uL (1.8-7.7) Lymphocytes # (Auto) 1.5 x10^3/uL (1.0-4.8) Monocytes # (Auto) 0.6 x10^3/uL (0.0-1.1) Eosinophils # (Auto) 0.1 x10^3/uL (0.0-0.7) Basophils # (Auto) 0.0 x10^3/uL (0.0-0.2) Sodium Level 141 mmol/L (136-145) Potassium Level 4.2 mmol/L (3.5-5.1) Chloride Level 97 mmol/L (98-107) Carbon Dioxide Level 44 mmol/L (21-32) Anion Gap 0 (6-14) Blood Urea Nitrogen 20 mg/dL (7-20) Creatinine 0.9 mg/dL (0.6-1.0) Estimated GFR (Cockcroft-Gault) 76.5 Glucose Level 120 mg/dL (70-99) Calcium Level 9.2 mg/dL (8.5-10.1) Test 02/02/17 11:36 02/02/17 17:52 02/02/17 20:54 02/03/17 07:46 Glucose (Fingerstick) 146 mg/dL (70-99) 73 mg/dL (70-99) 114 mg/dL (70-99) 115 mg/dL (70-99) Test 02/03/17 09:15 02/03/17 11:48 White Blood Count 7.0 x10^3/uL (4.0-11.0) Red Blood Count 4.35 x10^6/uL (3.50-5.40) Hemoglobin 11.6 g/dL (12.0-15.5) Hematocrit 37.4 % (36.0-47.0) Mean Corpuscular Volume 86 fL (79-100) Mean Corpuscular Hemoglobin 27 pg (25-35) Mean Corpuscular Hemoglobin Concent 31 g/dL (31-37) Red Cell Distribution Width 15.7 % (11.5-14.5) Platelet Count 275 x10^3/uL (140-400) Neutrophils (%) (Auto) 75 % (31-73) Lymphocytes (%) (Auto) 17 % (24-48) Monocytes (%) (Auto) 7 % (0-9) Eosinophils (%) (Auto) 1 % (0-3) Basophils (%) (Auto) 0 % (0-3) Neutrophils # (Auto) 5.2 x10^3uL (1.8-7.7) Lymphocytes # (Auto) 1.2 x10^3/uL (1.0-4.8) Monocytes # (Auto) 0.5 x10^3/uL (0.0-1.1) Eosinophils # (Auto) 0.1 x10^3/uL (0.0-0.7) Basophils # (Auto) 0.0 x10^3/uL (0.0-0.2) Sodium Level 140 mmol/L (136-145) Potassium Level 4.7 mmol/L (3.5-5.1) Chloride Level 95 mmol/L (98-107) Carbon Dioxide Level > 45 mmol/L (21-32) Anion Gap 0 (6-14) Blood Urea Nitrogen 22 mg/dL (7-20) Creatinine 0.9 mg/dL (0.6-1.0) Estimated GFR (Cockcroft-Gault) 76.5 Glucose Level 182 mg/dL (70-99) Calcium Level 9.7 mg/dL (8.5-10.1) Glucose (Fingerstick) 205 mg/dL (70-99) Laboratory Tests Test 02/02/17 17:52 02/02/17 20:54 02/03/17 07:46 02/03/17 09:15 Glucose (Fingerstick) 73 mg/dL (70-99) 114 mg/dL (70-99) 115 mg/dL (70-99) White Blood Count 7.0 x10^3/uL (4.0-11.0) Red Blood Count 4.35 x10^6/uL (3.50-5.40) Hemoglobin 11.6 g/dL (12.0-15.5) Hematocrit 37.4 % (36.0-47.0) Mean Corpuscular Volume 86 fL (79-100) Mean Corpuscular Hemoglobin 27 pg (25-35) Mean Corpuscular Hemoglobin Concent 31 g/dL (31-37) Red Cell Distribution Width 15.7 % (11.5-14.5) Platelet Count 275 x10^3/uL (140-400) Neutrophils (%) (Auto) 75 % (31-73) Lymphocytes (%) (Auto) 17 % (24-48) Monocytes (%) (Auto) 7 % (0-9) Eosinophils (%) (Auto) 1 % (0-3) Basophils (%) (Auto) 0 % (0-3) Neutrophils # (Auto) 5.2 x10^3uL (1.8-7.7) Lymphocytes # (Auto) 1.2 x10^3/uL (1.0-4.8) Monocytes # (Auto) 0.5 x10^3/uL (0.0-1.1) Eosinophils # (Auto) 0.1 x10^3/uL (0.0-0.7) Basophils # (Auto) 0.0 x10^3/uL (0.0-0.2) Sodium Level 140 mmol/L (136-145) Potassium Level 4.7 mmol/L (3.5-5.1) Chloride Level 95 mmol/L (98-107) Carbon Dioxide Level > 45 mmol/L (21-32) Anion Gap 0 (6-14) Blood Urea Nitrogen 22 mg/dL (7-20) Creatinine 0.9 mg/dL (0.6-1.0) Estimated GFR (Cockcroft-Gault) 76.5 Glucose Level 182 mg/dL (70-99) Calcium Level 9.7 mg/dL (8.5-10.1) Test 02/03/17 11:48 Glucose (Fingerstick) 205 mg/dL (70-99) Medications Current Medications Fentanyl Citrate (Fentanyl 2ml Vial) 50 mcg PRN Q15MIN PRN IV PAIN GREATER THAN 3/10 Last administered on 01/29/17 08:02; Start 01/28/17 at 12:30; Stop 01/29/17 at 12:29; Status DC Sodium Chloride 1,000 ml @ 125 mls/hr Q8H IV Last administered on 01/28/17 13 :05; Start 01/28/17 at 12:21; Stop 01/28/17 at 20:20; Status DC Ondansetron HCl (Zofran) 4 mg 1X ONCE IV Last administered on 01/28/17 13:05 ; Start 01/28/17 at 12:30; Stop 01/28/17 at 12:31; Status DC Labetalol HCl (Normodyne) 20 mg 1X ONCE IVP Last administered on 01/28/17 13: 07; Start 01/28/17 at 12:30; Stop 01/28/17 at 12:33; Status DC Nicardipine HCl 50 mg/Sodium Chloride 270 ml @ 0 mls/hr CONT PRN IV SEE I/O RECORD Last administered on 01/28/17 13:33; Start 01/28/17 at 13:15; Stop 01/30 at 10:59; Status DC Ondansetron HCl (Zofran) 4 mg PRN Q8HRS PRN IV NAUSEA/VOMITING; Start 01/28/17 at 13:30; Stop 01/28/17 at 14:14; Status DC Fentanyl Citrate (Fentanyl 2ml Vial) 50 mcg PRN Q2HR PRN IV PAIN Last administered on 01/28/17 20:06; Start 01/28/17 at 13:30; Stop 01/29/17 at 13:29 ; Status DC Sodium Chloride 1,000 ml @ 0 mls/hr Q0M IV ; Start 01/28/17 at 13:29; Stop 01/29/17 at 13:28; Status DC Acetaminophen (Tylenol) 650 mg PRN Q4HRS PRN PO FEVER; Start 01/28/17 at 13:30 ; Stop 01/29/17 at 13:29; Status DC Ondansetron HCl (Zofran) 4 mg PRN Q6HRS PRN IV NAUSEA/VOMITING; Start 01/28/17 at 14:15; Stop 01/29/17 at 14:14; Status DC Acetaminophen (Tylenol) 500 mg PRN Q6HRS PRN PO MILD PAIN / TEMP; Start at 14:15 Ibuprofen (Motrin) 600 mg PRN Q6HRS PRN PO INFLAMMATION; Start 01/28/17 at 14: 15 Diphenhydramine HCl (Benadryl) 25 mg PRN QHS PRN PO INSOMNIA; Start 01/28/17 at 14:15 Aspirin (Ecotrin) 81 mg DAILY PO Last administered on 02/03/17 09:09; Start 01/29/17 at 09:00 Atorvastatin Calcium (Lipitor) 20 mg HS PO Last administered on 02/02/17 22: 08; Start 01/28/17 at 21:00 Clopidogrel Bisulfate (Plavix) 75 mg DAILY PO Last administered on 02/03/17 09:09; Start 01/29/17 at 09:00 Famotidine (Pepcid) 20 mg BID PO Last administered on 02/03/17 09:09; Start 01/28/17 at 21:00 Ferrous Sulfate (Feosol) 325 mg DAILY PO Last administered on 02/03/17 09:09 ; Start 01/29/17 at 09:00 Furosemide (Lasix) 80 mg [id number] PO Last administered on 02/03/17 09:09; Start 01/28/17 at 15:00 Insulin Aspart (NovoLOG) 20 units TIDWMEALS SQ Last administered on 02/03/17 12:22; Start 01/28/17 at 17:00 Insulin Detemir (Levemir) 32 units BID SQ Last administered on 02/03/17 09:38 ; Start 01/28/17 at 21:00 Metoprolol Tartrate (Lopressor) 25 mg BID PO ; Start 01/28/17 at 21:00; Stop at 21:00; Status DC Nitroglycerin (Nitrostat) 0.4 mg PRN Q5MIN PRN SL CHEST PAIN; Start 01/28/17 at 14:15 Oxycodone/ Acetaminophen (Percocet 10/325) 1 tab PRN QID PRN PO MODERATE PAIN Last administered on 01/29/17 18:01; Start 01/28/17 at 14:15 Oxycodone/ Acetaminophen (Percocet 10/325) 2 tab PRN Q6HRS PRN PO SEVERE PAIN Last administered on 02/03/17 09:59; Start 01/28/17 at 14:15 Potassium Chloride (Klor-Con) 10 meq BIDWMEALS PO Last administered on 09:09; Start 01/28/17 at 17:00 Insulin Aspart (NovoLOG) 0-9 UNITS TIDWMEALS SQ Last administered on 08:26; Start 01/28/17 at 17:00 Dextrose (Dextrose 50%-Water Syringe) 12.5 gm PRN Q15MIN PRN IV SEE COMMENTS; Start 01/28/17 at 15:15 Losartan Potassium (Cozaar) 100 mg DAILY PO Last administered on 02/03/17 09: 11; Start 01/28/17 at 16:00 Metoprolol Tartrate (Lopressor) 50 mg BID PO Last administered on 01/30/17 08: 44; Start 01/28/17 at 21:00; Stop 01/30/17 at 15:27; Status DC Ondansetron HCl (Zofran) 4 mg PRN Q6HRS PRN IV NAUSEA/VOMITING Last administered on 01/29/17 17:58; Start 01/29/17 at 17:45 Metoprolol Tartrate (Lopressor) 50 mg DAILY PO Last administered on 02/03/17 09:11; Start 01/31/17 at 09:00 Metoprolol Tartrate (Lopressor) 25 mg QHS PO Last administered on 02/02/17 22 :08; Start 01/30/17 at 21:00 Labetalol HCl (Normodyne) 10 mg PRN Q2HR PRN IVP HYPERTENSION, SEE COMMENTS; Start 01/31/17 at 07:45 Active Scripts Active Percocet 10-325 Mg Tablet (Oxycodone/Acetaminophen) 1 Each Tablet 1 Tab PO Q6- 8HRS PRN Lasix (Furosemide) 80 Mg Tablet 1 Tab PO BID Reported Metoprolol Tartrate 50 Mg Tablet 1 Tab PO BID Ferrous Sulfate 325 Mg Tablet 1 Tab PO DAILY NITROGLYCERIN SubLingual (Nitroglycerin) 0.4 Mg Tab.subl 0.4 Mg SL PRN Q5MIN PRN Percocet 10-325 Mg Tablet (Oxycodone/Acetaminophen) 1 Each Tablet 2 Tab PO PRN Q6HRS PRN Levemir Flextouch (Insulin Detemir) 100 Unit/1 Ml Insuln.pen 32 Unit SQ BID Novolog Flexpen (Insulin Aspart) 100 Unit/1 Ml Insuln.pen 20 Unit SQ TIDWMEALS Atorvastatin Calcium 20 Mg Tablet 20 Mg PO HS Potassium Chloride 10 Meq Capsule.er 10 Meq PO BID Aspir 81 (Aspirin) 81 Mg Tablet. 1 Tab PO DAILY Clopidogrel (Clopidogrel Bisulfate) 75 Mg Tablet 1 Tab PO DAILY Famotidine 20 Mg Tablet 20 Mg PO BID Vitals/I & O Vital Sign - Last 24 Hours 02/02/17 02/02/17 02/02/17 02/02/17 14:30 15:31 19:30 19:45 Temp 98.3 98.1 98.3 98.1 Pulse 57 64 Resp 18 18 20 B/P (MAP) 109/58 (75) 111/41 (64) Pulse Ox 100 100 97 O2 Delivery Nasal Cannula Nasal Cannula Nasal Cannula Nasal Cannula O2 Flow Rate 2.0 2.0 2.0 2.0 02/02/17 02/02/17 02/02/17 02/03/17 22:08 22:09 23:10 03:35 Temp 98.5 98.1 98.5 98.1 Pulse 64 62 54 Resp 20 18 18 B/P (MAP) 111/41 117/39 (65) 138/40 (72) Pulse Ox 97 97 97 O2 Delivery Nasal Cannula Nasal Cannula Nasal Cannula O2 Flow Rate 2.0 2.0 2.0 02/03/17 02/03/17 02/03/17 02/03/17 04:11 05:11 07:45 08:00 Temp 98.2 98.2 Pulse 61 Resp 22 20 18 B/P (MAP) 140/41 (74) Pulse Ox 97 97 98 O2 Delivery Nasal Cannula Nasal Cannula Nasal Cannula O2 Flow Rate 2.0 2.0 2.0 02/03/17 02/03/17 02/03/17 02/03/17 09:11 09:11 09:59 10:30 Temp 98.5 98.5 Pulse 80 80 52 Resp 18 B/P (MAP) 140/41 140/41 121/40 (67) Pulse Ox 98 O2 Delivery Nasal Cannula Nasal Cannula O2 Flow Rate 2.0 2.0 02/03/17 11:00 O2 Delivery Nasal Cannula O2 Flow Rate 2.0 Intake and Output 02/02/17 02/02/17 02/03/17 15:00 23:00 07:00 Intake Total 1250 ml 390 ml Output Total 400 ml 1300 ml 200 ml Balance -400 ml -50 ml 190 ml RADHA PIERRE MD Feb 03, 2017 13:12
[2017-02-03] MEDS: ENOXAPARIN 40 MG/0.4 ML SYRINGE. SQ SCH ×2 (13:57→22:07)
--- NOTE | 2017-02-03 15:17 | PDOC ---
PROGRESS NOTES Assessment Assessment IMPRESSION: Weakness. Fall. HTN DM CAD CHF VIOLETTA. Narcotic use. No evidence of acute CVA this time. RECOMMENDATIONS/PLAN: Treat medical diseases. Lab: see order. OT/PT. Past Medical History Cardiovascular: HTN Pulmonary: No pertinent hx GI: No pertinent hx Heme/Onc: No pertinent hx Hepatobiliary: No pertinent hx Psych: No pertinent hx Rheumatologic: No pertinent hx Endocrine: Diabetes Past Surgical History Appendectomy, Total knee replacement Family History Diabetes Social History Smoke: No ALCOHOL: none Drugs: None ALLERGY: Reviewed. MEDICATIONS: Refer to [facility] REVIEW OF SYSTEMS: Constitutional: No malnutrition, weight loss, cachexia. Head: No traumatic brain or head injury. Skin: No edema, or rash. Ear: No infection. Eyes: No vision loss, or diplopia. Nose: No bleeding or purulent discharges. Hearing: No hearing decrease. Neck: No injury. Breast: No history of cancer, masses, or discharges. Cardiac: CAD, CHF, HTN. Pulmonary: No COPD.. GI: No GI Ulcer, GI bleeding Urinary/genital: UTI. Endocrine: Diabetes Mellitus, obesity. Skeletomuscular: No muscular atrophy Neurological: see HP. Psychiatric: Denies drug use/abuse. Otherwise, not [id number] review of systems. PHYSICAL EXAMINATION: General appearance in no acute distress. HEENT: Normocephalic and nontraumatic. Eyes, nose, ears, and throat are unremarkable. Neck is supple. No lymphadenopathy. No bruits are heard over the carotid artery. No Crepitus. Cardiovascular: S1, S2, regular rate and rhythm. Pulmonary: Clear to auscultation bilaterally. Abdomen: Bowel sounds are positive. Abdomen is soft, nontender, and nondistended. Extremities: No rash, lesions, or edema. No restriction of range of motion NEUROLOGICAL EXAMINATION: Awake. Oriented to time, place and person. PERRL. EOMI. CN: no focal findings. Muscle tone: within normal. Muscle strength: 4+ DTR: 1+ Plantar reflex: Flexor response bilaterally Gait: not examined in bed. Sensory exam: no abnormal findings. No cerebellar signs elicited. F-T-N test fine.. Objective Objective Vital Signs Date Time Temp Pulse Resp B/P (MAP) Pulse Ox O2 Delivery O2 Flow Rate FiO2 02/03/17 14:45 98.4 60 18 109/41 (63) 98 Nasal Cannula 2.0 98.4 Intake and Output 02/03/17 07:00 Intake Total 1640 ml Output Total 1900 ml Balance -260 ml Intake Oral 1640 ml Output Urine Total 1900 ml # Voids 3 Vitals Signs Vitals VS - Last 72 Hours, by Label Date Time Temp Pulse Resp B/P (MAP) Pulse Ox O2 Delivery O2 Flow Rate FiO2 02/03/17 14:45 98.4 60 18 109/41 (63) 98 Nasal Cannula 2.0 98.4 02/03/17 11:00 Nasal Cannula 2.0 02/03/17 10:30 98.5 52 18 121/40 (67) 98 Nasal Cannula 2.0 98.5 02/03/17 09:59 Nasal Cannula 2.0 02/03/17 09:11 80 140/41 02/03/17 09:11 80 140/41 02/03/17 08:00 Nasal Cannula 2.0 02/03/17 07:45 98.2 61 18 140/41 (74) 98 Nasal Cannula 2.0 98.2 02/03/17 05:11 20 97 02/03/17 04:11 22 97 Nasal Cannula 2.0 02/03/17 03:35 98.1 54 18 138/40 (72) 97 Nasal Cannula 2.0 98.1 02/02/17 23:10 98.5 62 18 117/39 (65) 97 Nasal Cannula 2.0 98.5 02/02/17 22:09 20 97 Nasal Cannula 2.0 02/02/17 22:08 64 111/41 02/02/17 19:45 98.1 64 20 111/41 (64) 97 Nasal Cannula 2.0 98.1 02/02/17 19:30 Nasal Cannula 2.0 02/02/17 15:31 18 100 Nasal Cannula 2.0 02/02/17 14:30 98.3 57 18 109/58 (75) 100 Nasal Cannula 2.0 98.3 02/02/17 12:28 98.4 46 18 109/40 (63) 91 Nasal Cannula 2.0 98.4 02/02/17 09:13 18 96 Nasal Cannula 2.0 02/02/17 08:11 Nasal Cannula 2.0 02/02/17 07:56 55 121/46 02/02/17 07:56 55 121/46 02/02/17 07:51 98.4 55 18 121/46 (71) 96 Nasal Cannula 2.0 98.4 Laboratory Laboratory Laboratory Tests Test 02/02/17 17:52 02/02/17 20:54 02/03/17 07:46 02/03/17 09:15 Glucose (Fingerstick) 73 mg/dL (70-99) 114 mg/dL (70-99) 115 mg/dL (70-99) White Blood Count 7.0 x10^3/uL (4.0-11.0) Red Blood Count 4.35 x10^6/uL (3.50-5.40) Hemoglobin 11.6 g/dL (12.0-15.5) Hematocrit 37.4 % (36.0-47.0) Mean Corpuscular Volume 86 fL (79-100) Mean Corpuscular Hemoglobin 27 pg (25-35) Mean Corpuscular Hemoglobin Concent 31 g/dL (31-37) Red Cell Distribution Width 15.7 % (11.5-14.5) Platelet Count 275 x10^3/uL (140-400) Neutrophils (%) (Auto) 75 % (31-73) Lymphocytes (%) (Auto) 17 % (24-48) Monocytes (%) (Auto) 7 % (0-9) Eosinophils (%) (Auto) 1 % (0-3) Basophils (%) (Auto) 0 % (0-3) Neutrophils # (Auto) 5.2 x10^3uL (1.8-7.7) Lymphocytes # (Auto) 1.2 x10^3/uL (1.0-4.8) Monocytes # (Auto) 0.5 x10^3/uL (0.0-1.1) Eosinophils # (Auto) 0.1 x10^3/uL (0.0-0.7) Basophils # (Auto) 0.0 x10^3/uL (0.0-0.2) Sodium Level 140 mmol/L (136-145) Potassium Level 4.7 mmol/L (3.5-5.1) Chloride Level 95 mmol/L (98-107) Carbon Dioxide Level > 45 mmol/L (21-32) Anion Gap 0 (6-14) Blood Urea Nitrogen 22 mg/dL (7-20) Creatinine 0.9 mg/dL (0.6-1.0) Estimated GFR (Cockcroft-Gault) 76.5 Glucose Level 182 mg/dL (70-99) Calcium Level 9.7 mg/dL (8.5-10.1) Test 02/03/17 11:48 Glucose (Fingerstick) 205 mg/dL (70-99) Medication Medications Current Medications Enoxaparin Sodium (Lovenox 40mg Syringe) 40 mg Q12HR SQ Last administered on t 13:57; Start 02/03/17 at 14:00 Comment Review of Relevant I have reviewed the following items nolan (where applicable) has been applied. YOLANDA PICKENS MD Feb 03, 2017 15:17
[2017-02-03 16:13] LABS: VITAMIN-B12 342 pg/mL (247-911)
--- NOTE | 2017-02-03 18:16 | PN ---
DATE: SUBJECTIVE: The patient is not having any new complaints today, but she continues to be bradycardic. I discussed the situation with the patient as well as her sister. No loss of consciousness, she continues to have episodes of sinus bradycardia with a rate down to 40. The blood pressure has been up and down. PHYSICAL EXAMINATION: No changes in cardiac exam. IMPRESSION: This patient has severe hypertension that is difficult to control and also has significant bradycardia with an inappropriate chronotropic response, and enable to be able to control her blood pressure, we also need to be able to have a better pulse rate as well, therefore due to the inappropriate chronotropic response, I have recommended for the insertion of a permanent pacemaker. The pacemaker was going to be inserted today, but due to initially scheduling problems and then when that was resolved, the patient wanted to discuss the situation with her family before making the final decision on the pacemaker; therefore, it has been rescheduled for Friday. The patient now has agreed to proceed with the insertion of the permanent pacemaker, she will require a dual chamber pacemaker. LIZBET LINDSAY MD DR: GABRIEL/amrik JOB#: [id number] / [id number]
[2017-02-03] MEDS: ATORVASTATIN CALCIUM 20 MG TABLET PO SCH (22:06)
[2017-02-03] MEDS: METOPROLOL TART IMMED RELEASE 25 MG TABLET. PO SCH (22:06)
[2017-02-04 03:15] VITALS: BP 133/63
[2017-02-04 05:22] LABS: BASO % 0 % (0-3); EOS % 1 % (0-3); HEMATOCRIT 34.4 % (36.0-47.0); LYMPH % 27 % (24-48); MEAN CORPUSCULAR HEMOGLOBIN 27 pg (25-35); MEAN CORPUSCULAR HGB CONC 32 g/dL (31-37); MEAN CORPUSCULAR VOLUME 84 fL (79-100); MONO % 9 % (0-9); NEUT % 62 % (31-73); PLATELET COUNT 267 x10^3/uL (140-400); RED BLOOD COUNT 4.08 x10^6/uL (3.50-5.40); RED CELL DISTRIBUTION WIDTH 15.6 % (11.5-14.5); WHITE BLOOD COUNT 7.3 x10^3/uL (4.0-11.0)
[2017-02-04 05:44] LABS: CALCIUM 9.6 mg/dL (8.5-10.1); CREATININE 0.8 mg/dL (0.6-1.0); GFR 87.7; POTASSIUM 3.8 mmol/L (3.5-5.1)
[2017-02-04 07:00] VITALS: BP 132/50
[2017-02-04] MEDS: oxyCODONE/APAP 10/325 1 TAB TABLET PO PRN ×3 (07:40→21:00)
[2017-02-04] MEDS: INSULIN ASPART 300 UNITS/3 ML INSULN.PEN SQ SCH ×6 (08:00→18:11)
[2017-02-04] MEDS: FUROSEMIDE 80 MG TABLET. PO SCH ×2 (09:29→15:18)
[2017-02-04] MEDS: METOPROLOL TART IMMED RELEASE 25 MG TABLET. PO SCH ×2 (09:29→20:56)
[2017-02-04] MEDS: LOSARTAN POTASSIUM 50 MG TABLET. PO SCH (09:29)
[2017-02-04] MEDS: FAMOTIDINE 20 MG TABLET. PO SCH ×2 (09:30→20:56)
[2017-02-04] MEDS: ASPIRIN ENTERIC COATED 81 MG TABLET.DR. PO SCH (09:30)
[2017-02-04] MEDS: FERROUS SULFATE 325 MG TABLET. PO SCH (09:30)
[2017-02-04] MEDS: POTASSIUM CHLORIDE 10 MEQ TABLET.ER. PO SCH ×2 (09:30→18:02)
[2017-02-04] MEDS: CLOPIDOGREL BISULFATE 75 MG TABLET PO SCH (09:30)
[2017-02-04] MEDS: ENOXAPARIN 40 MG/0.4 ML SYRINGE. SQ SCH ×2 (09:38→20:57)
[2017-02-04] MEDS: METOPROLOL TART IMMED RELEASE 50 MG TABLET. PO SCH (09:38)
[2017-02-04] MEDS: INSULIN DETEMIR 300 UNITS/3 ML INSULN.PEN. SQ SCH ×2 (09:45→21:03)
[2017-02-04 11:00] VITALS: BP 153/63
[2017-02-04] MEDS: CALCIUM CARBONATE 500 MG TABLET PO SCH ×2 (12:28→20:56)
[2017-02-04] MEDS: CHOLECALCIFEROL (VITAMIN D3) 5,000 UNIT CAPSULE PO SCH (12:28)
--- NOTE | 2017-02-04 14:44 | PDOC ---
PROGRESS NOTES Chief Complaint Chief Complaint HTN emergency POA, resolved LAbile HTN DM 2 Obesity BMI 41 CAD history with CABG CHF, chronic stable sinus bradycardia History of Present Illness History of Present Illness improved malignant HTN. . has was resting comfortably in the chair with nasal cannula in place ROS: no fever, chills, sob or chest pain plan permanent pacer tomorrow, Dr. Robb, cont on metoprolol bid ptot dvt ppx DC soon Vitals Vitals Vital Signs Date Time Temp Pulse Resp B/P (MAP) Pulse Ox O2 Delivery O2 Flow Rate FiO2 02/04/17 11:00 98.6 58 19 153/63 (93) 96 BiPAP/CPAP 98.6 02/04/17 08:30 2.0 Physical Exam General: Alert, Oriented X3, Cooperative Heart: Normal S1, Normal S2 Lungs: Clear Abdomen: Normal bowel sounds, Soft Extremities: Normal pulses, Other (1+ edema) Skin: No rashes, No breakdown, No significant lesion Labs LABS Laboratory Tests Test 02/03/17 17:03 02/03/17 20:51 02/04/17 04:05 Glucose (Fingerstick) 87 mg/dL (70-99) 156 mg/dL (70-99) White Blood Count 7.3 x10^3/uL (4.0-11.0) Red Blood Count 4.08 x10^6/uL (3.50-5.40) Hemoglobin 11.0 g/dL (12.0-15.5) Hematocrit 34.4 % (36.0-47.0) Mean Corpuscular Volume 84 fL (79-100) Mean Corpuscular Hemoglobin 27 pg (25-35) Mean Corpuscular Hemoglobin Concent 32 g/dL (31-37) Red Cell Distribution Width 15.6 % (11.5-14.5) Platelet Count 267 x10^3/uL (140-400) Neutrophils (%) (Auto) 62 % (31-73) Lymphocytes (%) (Auto) 27 % (24-48) Monocytes (%) (Auto) 9 % (0-9) Eosinophils (%) (Auto) 1 % (0-3) Basophils (%) (Auto) 0 % (0-3) Neutrophils # (Auto) 4.5 x10^3uL (1.8-7.7) Lymphocytes # (Auto) 2.0 x10^3/uL (1.0-4.8) Monocytes # (Auto) 0.7 x10^3/uL (0.0-1.1) Eosinophils # (Auto) 0.1 x10^3/uL (0.0-0.7) Basophils # (Auto) 0.0 x10^3/uL (0.0-0.2) Sodium Level 140 mmol/L (136-145) Potassium Level 3.8 mmol/L (3.5-5.1) Chloride Level 97 mmol/L (98-107) Carbon Dioxide Level 43 mmol/L (21-32) Anion Gap 0 (6-14) Blood Urea Nitrogen 23 mg/dL (7-20) Creatinine 0.8 mg/dL (0.6-1.0) Estimated GFR (Cockcroft-Gault) 87.7 Glucose Level 89 mg/dL (70-99) Calcium Level 9.6 mg/dL (8.5-10.1) Review of Systems Review of Systems no pain feels well Assessment and Plan Assessmemt and Plan Problems Medical Problems: (1) Congestive heart failure Status: Acute (2) Coronary artery disease Status: Acute (3) Malignant hypertension Status: Acute Problems: Comment Review of Relevant I have reviewed the following items nolan (where applicable) has been applied. Labs Laboratory Tests Test 02/02/17 17:52 02/02/17 20:54 02/03/17 07:46 02/03/17 09:15 Glucose (Fingerstick) 73 mg/dL (70-99) 114 mg/dL (70-99) 115 mg/dL (70-99) White Blood Count 7.0 x10^3/uL (4.0-11.0) Red Blood Count 4.35 x10^6/uL (3.50-5.40) Hemoglobin 11.6 g/dL (12.0-15.5) Hematocrit 37.4 % (36.0-47.0) Mean Corpuscular Volume 86 fL (79-100) Mean Corpuscular Hemoglobin 27 pg (25-35) Mean Corpuscular Hemoglobin Concent 31 g/dL (31-37) Red Cell Distribution Width 15.7 % (11.5-14.5) Platelet Count 275 x10^3/uL (140-400) Neutrophils (%) (Auto) 75 % (31-73) Lymphocytes (%) (Auto) 17 % (24-48) Monocytes (%) (Auto) 7 % (0-9) Eosinophils (%) (Auto) 1 % (0-3) Basophils (%) (Auto) 0 % (0-3) Neutrophils # (Auto) 5.2 x10^3uL (1.8-7.7) Lymphocytes # (Auto) 1.2 x10^3/uL (1.0-4.8) Monocytes # (Auto) 0.5 x10^3/uL (0.0-1.1) Eosinophils # (Auto) 0.1 x10^3/uL (0.0-0.7) Basophils # (Auto) 0.0 x10^3/uL (0.0-0.2) Sodium Level 140 mmol/L (136-145) Potassium Level 4.7 mmol/L (3.5-5.1) Chloride Level 95 mmol/L (98-107) Carbon Dioxide Level > 45 mmol/L (21-32) Anion Gap 0 (6-14) Blood Urea Nitrogen 22 mg/dL (7-20) Creatinine 0.9 mg/dL (0.6-1.0) Estimated GFR (Cockcroft-Gault) 76.5 Glucose Level 182 mg/dL (70-99) Calcium Level 9.7 mg/dL (8.5-10.1) Vitamin B12 Level 342 pg/mL (247-911) 25-Hydroxy Vitamin D Total < 4.2 ng/mL (30-100) Thyroid Stimulating Hormone (TSH) 0.704 uIU/mL (0.358-3.74) Test 02/03/17 11:48 02/03/17 17:03 02/03/17 20:51 02/04/17 04:05 Glucose (Fingerstick) 205 mg/dL (70-99) 87 mg/dL (70-99) 156 mg/dL (70-99) White Blood Count 7.3 x10^3/uL (4.0-11.0) Red Blood Count 4.08 x10^6/uL (3.50-5.40) Hemoglobin 11.0 g/dL (12.0-15.5) Hematocrit 34.4 % (36.0-47.0) Mean Corpuscular Volume 84 fL (79-100) Mean Corpuscular Hemoglobin 27 pg (25-35) Mean Corpuscular Hemoglobin Concent 32 g/dL (31-37) Red Cell Distribution Width 15.6 % (11.5-14.5) Platelet Count 267 x10^3/uL (140-400) Neutrophils (%) (Auto) 62 % (31-73) Lymphocytes (%) (Auto) 27 % (24-48) Monocytes (%) (Auto) 9 % (0-9) Eosinophils (%) (Auto) 1 % (0-3) Basophils (%) (Auto) 0 % (0-3) Neutrophils # (Auto) 4.5 x10^3uL (1.8-7.7) Lymphocytes # (Auto) 2.0 x10^3/uL (1.0-4.8) Monocytes # (Auto) 0.7 x10^3/uL (0.0-1.1) Eosinophils # (Auto) 0.1 x10^3/uL (0.0-0.7) Basophils # (Auto) 0.0 x10^3/uL (0.0-0.2) Sodium Level 140 mmol/L (136-145) Potassium Level 3.8 mmol/L (3.5-5.1) Chloride Level 97 mmol/L (98-107) Carbon Dioxide Level 43 mmol/L (21-32) Anion Gap 0 (6-14) Blood Urea Nitrogen 23 mg/dL (7-20) Creatinine 0.8 mg/dL (0.6-1.0) Estimated GFR (Cockcroft-Gault) 87.7 Glucose Level 89 mg/dL (70-99) Calcium Level 9.6 mg/dL (8.5-10.1) Laboratory Tests Test 02/03/17 17:03 02/03/17 20:51 02/04/17 04:05 Glucose (Fingerstick) 87 mg/dL (70-99) 156 mg/dL (70-99) White Blood Count 7.3 x10^3/uL (4.0-11.0) Red Blood Count 4.08 x10^6/uL (3.50-5.40) Hemoglobin 11.0 g/dL (12.0-15.5) Hematocrit 34.4 % (36.0-47.0) Mean Corpuscular Volume 84 fL (79-100) Mean Corpuscular Hemoglobin 27 pg (25-35) Mean Corpuscular Hemoglobin Concent 32 g/dL (31-37) Red Cell Distribution Width 15.6 % (11.5-14.5) Platelet Count 267 x10^3/uL (140-400) Neutrophils (%) (Auto) 62 % (31-73) Lymphocytes (%) (Auto) 27 % (24-48) Monocytes (%) (Auto) 9 % (0-9) Eosinophils (%) (Auto) 1 % (0-3) Basophils (%) (Auto) 0 % (0-3) Neutrophils # (Auto) 4.5 x10^3uL (1.8-7.7) Lymphocytes # (Auto) 2.0 x10^3/uL (1.0-4.8) Monocytes # (Auto) 0.7 x10^3/uL (0.0-1.1) Eosinophils # (Auto) 0.1 x10^3/uL (0.0-0.7) Basophils # (Auto) 0.0 x10^3/uL (0.0-0.2) Sodium Level 140 mmol/L (136-145) Potassium Level 3.8 mmol/L (3.5-5.1) Chloride Level 97 mmol/L (98-107) Carbon Dioxide Level 43 mmol/L (21-32) Anion Gap 0 (6-14) Blood Urea Nitrogen 23 mg/dL (7-20) Creatinine 0.8 mg/dL (0.6-1.0) Estimated GFR (Cockcroft-Gault) 87.7 Glucose Level 89 mg/dL (70-99) Calcium Level 9.6 mg/dL (8.5-10.1) Medications Current Medications Fentanyl Citrate (Fentanyl 2ml Vial) 50 mcg PRN Q15MIN PRN IV PAIN GREATER THAN 3/10 Last administered on 01/29/17 08:02; Start 01/28/17 at 12:30; Stop 01/29/17 at 12:29; Status DC Sodium Chloride 1,000 ml @ 125 mls/hr Q8H IV Last administered on 01/28/17 13 :05; Start 01/28/17 at 12:21; Stop 01/28/17 at 20:20; Status DC Ondansetron HCl (Zofran) 4 mg 1X ONCE IV Last administered on 01/28/17 13:05 ; Start 01/28/17 at 12:30; Stop 01/28/17 at 12:31; Status DC Labetalol HCl (Normodyne) 20 mg 1X ONCE IVP Last administered on 01/28/17 13: 07; Start 01/28/17 at 12:30; Stop 01/28/17 at 12:33; Status DC Nicardipine HCl 50 mg/Sodium Chloride 270 ml @ 0 mls/hr CONT PRN IV SEE I/O RECORD Last administered on 01/28/17 13:33; Start 01/28/17 at 13:15; Stop 01/30 at 10:59; Status DC Ondansetron HCl (Zofran) 4 mg PRN Q8HRS PRN IV NAUSEA/VOMITING; Start 01/28/17 at 13:30; Stop 01/28/17 at 14:14; Status DC Fentanyl Citrate (Fentanyl 2ml Vial) 50 mcg PRN Q2HR PRN IV PAIN Last administered on 01/28/17 20:06; Start 01/28/17 at 13:30; Stop 01/29/17 at 13:29 ; Status DC Sodium Chloride 1,000 ml @ 0 mls/hr Q0M IV ; Start 01/28/17 at 13:29; Stop 01/29/17 at 13:28; Status DC Acetaminophen (Tylenol) 650 mg PRN Q4HRS PRN PO FEVER; Start 01/28/17 at 13:30 ; Stop 01/29/17 at 13:29; Status DC Ondansetron HCl (Zofran) 4 mg PRN Q6HRS PRN IV NAUSEA/VOMITING; Start 01/28/17 at 14:15; Stop 01/29/17 at 14:14; Status DC Acetaminophen (Tylenol) 500 mg PRN Q6HRS PRN PO MILD PAIN / TEMP; Start at 14:15 Ibuprofen (Motrin) 600 mg PRN Q6HRS PRN PO INFLAMMATION; Start 01/28/17 at 14: 15; Stop 02/03/17 at 13:15; Status DC Diphenhydramine HCl (Benadryl) 25 mg PRN QHS PRN PO INSOMNIA; Start 01/28/17 at 14:15 Aspirin (Ecotrin) 81 mg DAILY PO Last administered on 02/04/17 09:30; Start 01/29/17 at 09:00 Atorvastatin Calcium (Lipitor) 20 mg HS PO Last administered on 02/03/17 22: 06; Start 01/28/17 at 21:00 Clopidogrel Bisulfate (Plavix) 75 mg DAILY PO Last administered on 02/04/17 09:30; Start 01/29/17 at 09:00 Famotidine (Pepcid) 20 mg BID PO Last administered on 02/04/17 09:30; Start 01/28/17 at 21:00 Ferrous Sulfate (Feosol) 325 mg DAILY PO Last administered on 02/04/17 09:30 ; Start 01/29/17 at 09:00 Furosemide (Lasix) 80 mg [id number] PO Last administered on 02/04/17 09:29; Start 01/28/17 at 15:00 Insulin Aspart (NovoLOG) 20 units TIDWMEALS SQ Last administered on 02/04/17 12:31; Start 01/28/17 at 17:00 Insulin Detemir (Levemir) 32 units BID SQ Last administered on 02/04/17 09:45 ; Start 01/28/17 at 21:00 Metoprolol Tartrate (Lopressor) 25 mg BID PO ; Start 01/28/17 at 21:00; Stop at 21:00; Status DC Nitroglycerin (Nitrostat) 0.4 mg PRN Q5MIN PRN SL CHEST PAIN; Start 01/28/17 at 14:15 Oxycodone/ Acetaminophen (Percocet 10/325) 1 tab PRN QID PRN PO MODERATE PAIN Last administered on 02/04/17 07:40; Start 01/28/17 at 14:15 Oxycodone/ Acetaminophen (Percocet 10/325) 2 tab PRN Q6HRS PRN PO SEVERE PAIN Last administered on 02/03/17 23:11; Start 01/28/17 at 14:15 Potassium Chloride (Klor-Con) 10 meq BIDWMEALS PO Last administered on 09:30; Start 01/28/17 at 17:00 Insulin Aspart (NovoLOG) 0-9 UNITS TIDWMEALS SQ Last administered on 08:26; Start 01/28/17 at 17:00 Dextrose (Dextrose 50%-Water Syringe) 12.5 gm PRN Q15MIN PRN IV SEE COMMENTS; Start 01/28/17 at 15:15 Losartan Potassium (Cozaar) 100 mg DAILY PO Last administered on 02/04/17 09: 29; Start 01/28/17 at 16:00 Metoprolol Tartrate (Lopressor) 50 mg BID PO Last administered on 01/30/17 08: 44; Start 01/28/17 at 21:00; Stop 01/30/17 at 15:27; Status DC Ondansetron HCl (Zofran) 4 mg PRN Q6HRS PRN IV NAUSEA/VOMITING Last administered on 01/29/17 17:58; Start 01/29/17 at 17:45 Metoprolol Tartrate (Lopressor) 50 mg DAILY PO Last administered on 02/04/17 09:38; Start 01/31/17 at 09:00 Metoprolol Tartrate (Lopressor) 25 mg QHS PO Last administered on 02/03/17 22 :06; Start 01/30/17 at 21:00 Labetalol HCl (Normodyne) 10 mg PRN Q2HR PRN IVP HYPERTENSION, SEE COMMENTS; Start 01/31/17 at 07:45 Enoxaparin Sodium (Lovenox 40mg Syringe) 40 mg Q12HR SQ Last administered on 09:38; Start 02/03/17 at 14:00 Vitamin D (Vitamin D3) 5,000 unit DAILY PO Last administered on 02/04/17 12: 28; Start 02/04/17 at 11:00 Calcium Carbonate/ Glycine (Oscal) 500 mg BID PO Last administered on 12:28; Start 02/04/17 at 11:00 Active Scripts Active Percocet 10-325 Mg Tablet (Oxycodone/Acetaminophen) 1 Each Tablet 1 Tab PO Q6- 8HRS PRN Lasix (Furosemide) 80 Mg Tablet 1 Tab PO BID Reported Metoprolol Tartrate 50 Mg Tablet 1 Tab PO BID Ferrous Sulfate 325 Mg Tablet 1 Tab PO DAILY NITROGLYCERIN SubLingual (Nitroglycerin) 0.4 Mg Tab.subl 0.4 Mg SL PRN Q5MIN PRN Percocet 10-325 Mg Tablet (Oxycodone/Acetaminophen) 1 Each Tablet 2 Tab PO PRN Q6HRS PRN Levemir Flextouch (Insulin Detemir) 100 Unit/1 Ml Insuln.pen 32 Unit SQ BID Novolog Flexpen (Insulin Aspart) 100 Unit/1 Ml Insuln.pen 20 Unit SQ TIDWMEALS Atorvastatin Calcium 20 Mg Tablet 20 Mg PO HS Potassium Chloride 10 Meq Capsule.er 10 Meq PO BID Aspir 81 (Aspirin) 81 Mg Tablet.dr 1 Tab PO DAILY Clopidogrel (Clopidogrel Bisulfate) 75 Mg Tablet 1 Tab PO DAILY Famotidine 20 Mg Tablet 20 Mg PO BID Vitals/I & O Vital Sign - Last 24 Hours 02/03/17 02/03/17 02/03/17 02/03/17 14:45 16:37 19:30 19:35 Temp 98.4 98.6 98.4 98.6 Pulse 60 72 Resp 18 20 B/P (MAP) 109/41 (63) 154/66 (95) Pulse Ox 98 88 95 O2 Delivery Nasal Cannula Nasal Cannula Room Air Nasal Cannula O2 Flow Rate 2.0 2.0 2.0 02/03/17 02/03/17 02/03/17 02/03/17 20:53 22:06 23:11 23:15 Temp 98.4 98.4 Pulse 69 53 Resp 20 B/P (MAP) 121/56 118/47 (70) Pulse Ox 98 O2 Delivery Nasal Cannula Nasal Cannula Nasal Cannula O2 Flow Rate 2.0 2.0 2.0 02/04/17 02/04/17 02/04/17 02/04/17 00:11 03:15 07:00 07:40 Temp 97.4 98.8 97.4 98.8 Pulse 53 67 Resp 18 19 B/P (MAP) 133/63 (86) 132/50 (77) Pulse Ox 96 99 96 O2 Delivery Nasal Cannula BiPAP/CPAP BiPAP/CPAP Nasal Cannula O2 Flow Rate 2.0 2.0 02/04/17 02/04/17 02/04/17 02/04/17 08:00 08:30 09:29 09:38 Pulse 67 67 B/P (MAP) 132/50 132/50 O2 Delivery Nasal Cannula Nasal Cannula O2 Flow Rate 2.0 2.0 02/04/17 11:00 Temp 98.6 98.6 Pulse 58 Resp 19 B/P (MAP) 153/63 (93) Pulse Ox 96 O2 Delivery BiPAP/CPAP Intake and Output 02/03/17 02/03/17 02/04/17 15:00 23:00 07:00 Intake Total 990 ml 240 ml Output Total 750 ml 900 ml 150 ml Balance 240 ml -900 ml 90 ml LÓPEZ BARRIOS MD Feb 04, 2017 14:44
[2017-02-04 15:00] VITALS: BP 136/68
--- NOTE | 2017-02-04 17:35 | PDOC ---
PROGRESS NOTES Subjective Subjective No new complaints. We discussed about the pacemaker and I answered all of her questions. Patient aware of the risks involved Objective Objective Vital Signs Date Time Temp Pulse Resp B/P (MAP) Pulse Ox O2 Delivery O2 Flow Rate FiO2 02/04/17 15:18 Nasal Cannula 2.0 02/04/17 11:00 98.6 58 19 153/63 (93) 96 98.6 Intake and Output 02/05/17 07:00 Intake Total 500 ml Balance 500 ml Intake Oral 500 ml Physical Exam Physical Exam No significant changes and cardiac exam Assessment Assessment The patient is compensated. We will proceed with insertion of dual-chamber permanent pacemaker in a.m. Problems Medical Problems: (1) Congestive heart failure Status: Acute (2) Coronary artery disease Status: Acute (3) Malignant hypertension Status: Acute Comment Review of Relevant I have reviewed the following items nolan (where applicable) has been applied. Labs Laboratory Tests Test 02/02/17 17:52 02/02/17 20:54 02/03/17 07:46 02/03/17 09:15 Glucose (Fingerstick) 73 mg/dL (70-99) 114 mg/dL (70-99) 115 mg/dL (70-99) White Blood Count 7.0 x10^3/uL (4.0-11.0) Red Blood Count 4.35 x10^6/uL (3.50-5.40) Hemoglobin 11.6 g/dL (12.0-15.5) Hematocrit 37.4 % (36.0-47.0) Mean Corpuscular Volume 86 fL (79-100) Mean Corpuscular Hemoglobin 27 pg (25-35) Mean Corpuscular Hemoglobin Concent 31 g/dL (31-37) Red Cell Distribution Width 15.7 % (11.5-14.5) Platelet Count 275 x10^3/uL (140-400) Neutrophils (%) (Auto) 75 % (31-73) Lymphocytes (%) (Auto) 17 % (24-48) Monocytes (%) (Auto) 7 % (0-9) Eosinophils (%) (Auto) 1 % (0-3) Basophils (%) (Auto) 0 % (0-3) Neutrophils # (Auto) 5.2 x10^3uL (1.8-7.7) Lymphocytes # (Auto) 1.2 x10^3/uL (1.0-4.8) Monocytes # (Auto) 0.5 x10^3/uL (0.0-1.1) Eosinophils # (Auto) 0.1 x10^3/uL (0.0-0.7) Basophils # (Auto) 0.0 x10^3/uL (0.0-0.2) Sodium Level 140 mmol/L (136-145) Potassium Level 4.7 mmol/L (3.5-5.1) Chloride Level 95 mmol/L (98-107) Carbon Dioxide Level > 45 mmol/L (21-32) Anion Gap 0 (6-14) Blood Urea Nitrogen 22 mg/dL (7-20) Creatinine 0.9 mg/dL (0.6-1.0) Estimated GFR (Cockcroft-Gault) 76.5 Glucose Level 182 mg/dL (70-99) Calcium Level 9.7 mg/dL (8.5-10.1) Vitamin B12 Level 342 pg/mL (247-911) 25-Hydroxy Vitamin D Total < 4.2 ng/mL (30-100) Thyroid Stimulating Hormone (TSH) 0.704 uIU/mL (0.358-3.74) Test 02/03/17 11:48 02/03/17 17:03 02/03/17 20:51 02/04/17 04:05 Glucose (Fingerstick) 205 mg/dL (70-99) 87 mg/dL (70-99) 156 mg/dL (70-99) White Blood Count 7.3 x10^3/uL (4.0-11.0) Red Blood Count 4.08 x10^6/uL (3.50-5.40) Hemoglobin 11.0 g/dL (12.0-15.5) Hematocrit 34.4 % (36.0-47.0) Mean Corpuscular Volume 84 fL (79-100) Mean Corpuscular Hemoglobin 27 pg (25-35) Mean Corpuscular Hemoglobin Concent 32 g/dL (31-37) Red Cell Distribution Width 15.6 % (11.5-14.5) Platelet Count 267 x10^3/uL (140-400) Neutrophils (%) (Auto) 62 % (31-73) Lymphocytes (%) (Auto) 27 % (24-48) Monocytes (%) (Auto) 9 % (0-9) Eosinophils (%) (Auto) 1 % (0-3) Basophils (%) (Auto) 0 % (0-3) Neutrophils # (Auto) 4.5 x10^3uL (1.8-7.7) Lymphocytes # (Auto) 2.0 x10^3/uL (1.0-4.8) Monocytes # (Auto) 0.7 x10^3/uL (0.0-1.1) Eosinophils # (Auto) 0.1 x10^3/uL (0.0-0.7) Basophils # (Auto) 0.0 x10^3/uL (0.0-0.2) Sodium Level 140 mmol/L (136-145) Potassium Level 3.8 mmol/L (3.5-5.1) Chloride Level 97 mmol/L (98-107) Carbon Dioxide Level 43 mmol/L (21-32) Anion Gap 0 (6-14) Blood Urea Nitrogen 23 mg/dL (7-20) Creatinine 0.8 mg/dL (0.6-1.0) Estimated GFR (Cockcroft-Gault) 87.7 Glucose Level 89 mg/dL (70-99) Calcium Level 9.6 mg/dL (8.5-10.1) Test 02/04/17 17:00 Glucose (Fingerstick) 180 mg/dL (70-99) Laboratory Tests Test 02/03/17 20:51 02/04/17 04:05 02/04/17 17:00 Glucose (Fingerstick) 156 mg/dL (70-99) 180 mg/dL (70-99) White Blood Count 7.3 x10^3/uL (4.0-11.0) Red Blood Count 4.08 x10^6/uL (3.50-5.40) Hemoglobin 11.0 g/dL (12.0-15.5) Hematocrit 34.4 % (36.0-47.0) Mean Corpuscular Volume 84 fL (79-100) Mean Corpuscular Hemoglobin 27 pg (25-35) Mean Corpuscular Hemoglobin Concent 32 g/dL (31-37) Red Cell Distribution Width 15.6 % (11.5-14.5) Platelet Count 267 x10^3/uL (140-400) Neutrophils (%) (Auto) 62 % (31-73) Lymphocytes (%) (Auto) 27 % (24-48) Monocytes (%) (Auto) 9 % (0-9) Eosinophils (%) (Auto) 1 % (0-3) Basophils (%) (Auto) 0 % (0-3) Neutrophils # (Auto) 4.5 x10^3uL (1.8-7.7) Lymphocytes # (Auto) 2.0 x10^3/uL (1.0-4.8) Monocytes # (Auto) 0.7 x10^3/uL (0.0-1.1) Eosinophils # (Auto) 0.1 x10^3/uL (0.0-0.7) Basophils # (Auto) 0.0 x10^3/uL (0.0-0.2) Sodium Level 140 mmol/L (136-145) Potassium Level 3.8 mmol/L (3.5-5.1) Chloride Level 97 mmol/L (98-107) Carbon Dioxide Level 43 mmol/L (21-32) Anion Gap 0 (6-14) Blood Urea Nitrogen 23 mg/dL (7-20) Creatinine 0.8 mg/dL (0.6-1.0) Estimated GFR (Cockcroft-Gault) 87.7 Glucose Level 89 mg/dL (70-99) Calcium Level 9.6 mg/dL (8.5-10.1) Medications Current Medications Fentanyl Citrate (Fentanyl 2ml Vial) 50 mcg PRN Q15MIN PRN IV PAIN GREATER THAN 3/10 Last administered on 01/29/17 08:02; Start 01/28/17 at 12:30; Stop 01/29/17 at 12:29; Status DC Sodium Chloride 1,000 ml @ 125 mls/hr Q8H IV Last administered on 01/28/17 13 :05; Start 01/28/17 at 12:21; Stop 01/28/17 at 20:20; Status DC Ondansetron HCl (Zofran) 4 mg 1X ONCE IV Last administered on 01/28/17 13:05 ; Start 01/28/17 at 12:30; Stop 01/28/17 at 12:31; Status DC Labetalol HCl (Normodyne) 20 mg 1X ONCE IVP Last administered on 01/28/17 13: 07; Start 01/28/17 at 12:30; Stop 01/28/17 at 12:33; Status DC Nicardipine HCl 50 mg/Sodium Chloride 270 ml @ 0 mls/hr CONT PRN IV SEE I/O RECORD Last administered on 01/28/17 13:33; Start 01/28/17 at 13:15; Stop 01/30 at 10:59; Status DC Ondansetron HCl (Zofran) 4 mg PRN Q8HRS PRN IV NAUSEA/VOMITING; Start 01/28/17 at 13:30; Stop 01/28/17 at 14:14; Status DC Fentanyl Citrate (Fentanyl 2ml Vial) 50 mcg PRN Q2HR PRN IV PAIN Last administered on 01/28/17 20:06; Start 01/28/17 at 13:30; Stop 01/29/17 at 13:29 ; Status DC Sodium Chloride 1,000 ml @ 0 mls/hr Q0M IV ; Start 01/28/17 at 13:29; Stop 01/29/17 at 13:28; Status DC Acetaminophen (Tylenol) 650 mg PRN Q4HRS PRN PO FEVER; Start 01/28/17 at 13:30 ; Stop 01/29/17 at 13:29; Status DC Ondansetron HCl (Zofran) 4 mg PRN Q6HRS PRN IV NAUSEA/VOMITING; Start 01/28/17 at 14:15; Stop 01/29/17 at 14:14; Status DC Acetaminophen (Tylenol) 500 mg PRN Q6HRS PRN PO MILD PAIN / TEMP; Start at 14:15 Ibuprofen (Motrin) 600 mg PRN Q6HRS PRN PO INFLAMMATION; Start 01/28/17 at 14: 15; Stop 02/03/17 at 13:15; Status DC Diphenhydramine HCl (Benadryl) 25 mg PRN QHS PRN PO INSOMNIA; Start 01/28/17 at 14:15 Aspirin (Ecotrin) 81 mg DAILY PO Last administered on 02/04/17 09:30; Start 01/29/17 at 09:00 Atorvastatin Calcium (Lipitor) 20 mg HS PO Last administered on 02/03/17 22: 06; Start 01/28/17 at 21:00 Clopidogrel Bisulfate (Plavix) 75 mg DAILY PO Last administered on 02/04/17 09:30; Start 01/29/17 at 09:00 Famotidine (Pepcid) 20 mg BID PO Last administered on 02/04/17 09:30; Start 01/28/17 at 21:00 Ferrous Sulfate (Feosol) 325 mg DAILY PO Last administered on 02/04/17 09:30 ; Start 01/29/17 at 09:00 Furosemide (Lasix) 80 mg BID92 PO Last administered on 02/04/17 15:18; Start 01/28/17 at 15:00 Insulin Aspart (NovoLOG) 20 units TIDWMEALS SQ Last administered on 02/04/17 12:31; Start 01/28/17 at 17:00 Insulin Detemir (Levemir) 32 units BID SQ Last administered on 02/04/17 09:45 ; Start 01/28/17 at 21:00 Metoprolol Tartrate (Lopressor) 25 mg BID PO ; Start 01/28/17 at 21:00; Stop at 21:00; Status DC Nitroglycerin (Nitrostat) 0.4 mg PRN Q5MIN PRN SL CHEST PAIN; Start 01/28/17 at 14:15 Oxycodone/ Acetaminophen (Percocet 10/325) 1 tab PRN QID PRN PO MODERATE PAIN Last administered on 02/04/17 07:40; Start 01/28/17 at 14:15 Oxycodone/ Acetaminophen (Percocet 10/325) 2 tab PRN Q6HRS PRN PO SEVERE PAIN Last administered on 02/04/17 15:18; Start 01/28/17 at 14:15 Potassium Chloride (Klor-Con) 10 meq BIDWMEALS PO Last administered on 09:30; Start 01/28/17 at 17:00 Insulin Aspart (NovoLOG) 0-9 UNITS TIDWMEALS SQ Last administered on 08:26; Start 01/28/17 at 17:00 Dextrose (Dextrose 50%-Water Syringe) 12.5 gm PRN Q15MIN PRN IV SEE COMMENTS; Start 01/28/17 at 15:15 Losartan Potassium (Cozaar) 100 mg DAILY PO Last administered on 02/04/17 09: 29; Start 01/28/17 at 16:00 Metoprolol Tartrate (Lopressor) 50 mg BID PO Last administered on 01/30/17 08: 44; Start 01/28/17 at 21:00; Stop 01/30/17 at 15:27; Status DC Ondansetron HCl (Zofran) 4 mg PRN Q6HRS PRN IV NAUSEA/VOMITING Last administered on 01/29/17 17:58; Start 01/29/17 at 17:45 Metoprolol Tartrate (Lopressor) 50 mg DAILY PO Last administered on 02/04/17 09:38; Start 01/31/17 at 09:00 Metoprolol Tartrate (Lopressor) 25 mg QHS PO Last administered on 02/03/17 22 :06; Start 01/30/17 at 21:00 Labetalol HCl (Normodyne) 10 mg PRN Q2HR PRN IVP HYPERTENSION, SEE COMMENTS; Start 01/31/17 at 07:45 Enoxaparin Sodium (Lovenox 40mg Syringe) 40 mg Q12HR SQ Last administered on 09:38; Start 02/03/17 at 14:00 Vitamin D (Vitamin D3) 5,000 unit DAILY PO Last administered on 02/04/17 12: 28; Start 02/04/17 at 11:00 Calcium Carbonate/ Glycine (Oscal) 500 mg BID PO Last administered on 12:28; Start 02/04/17 at 11:00 Active Scripts Active Percocet 10-325 Mg Tablet (Oxycodone/Acetaminophen) 1 Each Tablet 1 Tab PO Q6- 8HRS PRN Lasix (Furosemide) 80 Mg Tablet 1 Tab PO BID Reported Metoprolol Tartrate 50 Mg Tablet 1 Tab PO BID Ferrous Sulfate 325 Mg Tablet 1 Tab PO DAILY NITROGLYCERIN SubLingual (Nitroglycerin) 0.4 Mg Tab.subl 0.4 Mg SL PRN Q5MIN PRN Percocet 10-325 Mg Tablet (Oxycodone/Acetaminophen) 1 Each Tablet 2 Tab PO PRN Q6HRS PRN Levemir Flextouch (Insulin Detemir) 100 Unit/1 Ml Insuln.pen 32 Unit SQ BID Novolog Flexpen (Insulin Aspart) 100 Unit/1 Ml Insuln.pen 20 Unit SQ TIDWMEALS Atorvastatin Calcium 20 Mg Tablet 20 Mg PO HS Potassium Chloride 10 Meq Capsule.er 10 Meq PO BID Aspir 81 (Aspirin) 81 Mg Tablet.dr 1 Tab PO DAILY Clopidogrel (Clopidogrel Bisulfate) 75 Mg Tablet 1 Tab PO DAILY Famotidine 20 Mg Tablet 20 Mg PO BID Vitals/I & O Vital Sign - Last 24 Hours 02/03/17 02/03/17 02/03/17 02/03/17 19:30 19:35 20:53 22:06 Temp 98.6 98.6 Pulse 72 69 Resp 20 B/P (MAP) 154/66 (95) 121/56 Pulse Ox 88 95 O2 Delivery Room Air Nasal Cannula Nasal Cannula O2 Flow Rate 2.0 2.0 02/03/17 02/03/17 02/04/17 02/04/17 23:11 23:15 00:11 03:15 Temp 98.4 97.4 98.4 97.4 Pulse 53 53 Resp 20 18 B/P (MAP) 118/47 (70) 133/63 (86) Pulse Ox 98 96 O2 Delivery Nasal Cannula Nasal Cannula Nasal Cannula BiPAP/CPAP O2 Flow Rate 2.0 2.0 2.0 02/04/17 02/04/17 02/04/17 02/04/17 07:00 07:40 08:00 08:30 Temp 98.8 98.8 Pulse 67 Resp 19 B/P (MAP) 132/50 (77) Pulse Ox 99 96 O2 Delivery BiPAP/CPAP Nasal Cannula Nasal Cannula Nasal Cannula O2 Flow Rate 2.0 2.0 2.0 02/04/17 02/04/17 02/04/17 02/04/17 09:29 09:38 11:00 15:18 Temp 98.6 98.6 Pulse 67 67 58 Resp 19 B/P (MAP) 132/50 132/50 153/63 (93) Pulse Ox 96 O2 Delivery BiPAP/CPAP Nasal Cannula O2 Flow Rate 2.0 Intake and Output 02/04/17 02/04/17 02/05/17 15:00 23:00 07:00 Intake Total 500 ml Balance 500 ml LIZBET LINDSAY MD Feb 04, 2017 17:35
--- NOTE | 2017-02-04 17:39 | PDOC ---
PROGRESS NOTES Assessment Assessment Weakness. Fall. HTN DM CAD CHF VIOLETTA. Narcotic use. Vit D deficiency. No evidence of acute CVA this time. RECOMMENDATIONS/PLAN: Treat medical diseases. Vit D 5000 units daily. Calcium 500 mg bid. OT/PT. Past Medical History Cardiovascular: HTN Pulmonary: No pertinent hx GI: No pertinent hx Heme/Onc: No pertinent hx Hepatobiliary: No pertinent hx Psych: No pertinent hx Rheumatologic: No pertinent hx Endocrine: Diabetes Past Surgical History Appendectomy, Total knee replacement Family History Diabetes Social History Smoke: No ALCOHOL: none Drugs: None ALLERGY: Reviewed. MEDICATIONS: Refer to MAR REVIEW OF SYSTEMS: Constitutional: No malnutrition, weight loss, cachexia. Head: No traumatic brain or head injury. Skin: No edema, or rash. Ear: No infection. Eyes: No vision loss, or diplopia. Nose: No bleeding or purulent discharges. Hearing: No hearing decrease. Neck: No injury. Breast: No history of cancer, masses, or discharges. Cardiac: CAD, CHF, HTN. Pulmonary: No COPD.. GI: No GI Ulcer, GI bleeding Urinary/genital: UTI. Endocrine: Diabetes Mellitus, obesity. Skeletomuscular: No muscular atrophy Neurological: see HP. Psychiatric: Denies drug use/abuse. Otherwise, not [id number] review of systems. PHYSICAL EXAMINATION: General appearance in no acute distress. HEENT: Normocephalic and nontraumatic. Eyes, nose, ears, and throat are unremarkable. Neck is supple. No lymphadenopathy. No bruits are heard over the carotid artery. No Crepitus. Cardiovascular: S1, S2, regular rate and rhythm. Pulmonary: Clear to auscultation bilaterally. Abdomen: Bowel sounds are positive. Abdomen is soft, nontender, and nondistended. Extremities: No rash, lesions, or edema. No restriction of range of motion NEUROLOGICAL EXAMINATION: Awake. Oriented to time, place and person. PERRL. EOMI. CN: no focal findings. Muscle tone: within normal. Muscle strength: 4+ DTR: 1+ Plantar reflex: Flexor response bilaterally Gait: at her baseline normal. Sensory exam: no abnormal findings. No cerebellar signs elicited. F-T-N test fine.. Objective Objective Vital Signs Date Time Temp Pulse Resp B/P (MAP) Pulse Ox O2 Delivery O2 Flow Rate FiO2 02/04/17 15:18 Nasal Cannula 2.0 02/04/17 11:00 98.6 58 19 153/63 (93) 96 98.6 Intake and Output 02/04/17 07:00 Intake Total 1230 ml Output Total 1800 ml Balance -570 ml Intake Oral 1230 ml Output Urine Total 1800 ml Vitals Signs Vitals VS - Last 72 Hours, by Label Date Time Temp Pulse Resp B/P (MAP) Pulse Ox O2 Delivery O2 Flow Rate FiO2 02/04/17 15:18 Nasal Cannula 2.0 02/04/17 11:00 98.6 58 19 153/63 (93) 96 BiPAP/CPAP 98.6 02/04/17 09:38 67 132/50 02/04/17 09:29 67 132/50 02/04/17 08:30 Nasal Cannula 2.0 02/04/17 08:00 Nasal Cannula 2.0 02/04/17 07:40 96 Nasal Cannula 2.0 02/04/17 07:00 98.8 67 19 132/50 (77) 99 BiPAP/CPAP 98.8 02/04/17 03:15 97.4 53 18 133/63 (86) 96 BiPAP/CPAP 97.4 02/04/17 00:11 Nasal Cannula 2.0 02/03/17 23:15 98.4 53 20 118/47 (70) 98 Nasal Cannula 2.0 98.4 02/03/17 23:11 Nasal Cannula 2.0 02/03/17 22:06 69 121/56 02/03/17 20:53 Nasal Cannula 2.0 02/03/17 19:35 95 Nasal Cannula 2.0 02/03/17 19:30 98.6 72 20 154/66 (95) 88 Room Air 98.6 02/03/17 16:37 Nasal Cannula 2.0 02/03/17 14:45 98.4 60 18 109/41 (63) 98 Nasal Cannula 2.0 98.4 02/03/17 10:30 98.5 52 18 121/40 (67) 98 Nasal Cannula 2.0 98.5 02/03/17 09:59 Nasal Cannula 2.0 02/03/17 09:11 80 140/41 02/03/17 09:11 80 140/41 02/03/17 08:00 Nasal Cannula 2.0 02/03/17 07:45 98.2 61 18 140/41 (74) 98 Nasal Cannula 2.0 98.2 Laboratory Laboratory Laboratory Tests Test 02/03/17 20:51 02/04/17 04:05 02/04/17 17:00 Glucose (Fingerstick) 156 mg/dL (70-99) 180 mg/dL (70-99) White Blood Count 7.3 x10^3/uL (4.0-11.0) Red Blood Count 4.08 x10^6/uL (3.50-5.40) Hemoglobin 11.0 g/dL (12.0-15.5) Hematocrit 34.4 % (36.0-47.0) Mean Corpuscular Volume 84 fL (79-100) Mean Corpuscular Hemoglobin 27 pg (25-35) Mean Corpuscular Hemoglobin Concent 32 g/dL (31-37) Red Cell Distribution Width 15.6 % (11.5-14.5) Platelet Count 267 x10^3/uL (140-400) Neutrophils (%) (Auto) 62 % (31-73) Lymphocytes (%) (Auto) 27 % (24-48) Monocytes (%) (Auto) 9 % (0-9) Eosinophils (%) (Auto) 1 % (0-3) Basophils (%) (Auto) 0 % (0-3) Neutrophils # (Auto) 4.5 x10^3uL (1.8-7.7) Lymphocytes # (Auto) 2.0 x10^3/uL (1.0-4.8) Monocytes # (Auto) 0.7 x10^3/uL (0.0-1.1) Eosinophils # (Auto) 0.1 x10^3/uL (0.0-0.7) Basophils # (Auto) 0.0 x10^3/uL (0.0-0.2) Sodium Level 140 mmol/L (136-145) Potassium Level 3.8 mmol/L (3.5-5.1) Chloride Level 97 mmol/L (98-107) Carbon Dioxide Level 43 mmol/L (21-32) Anion Gap 0 (6-14) Blood Urea Nitrogen 23 mg/dL (7-20) Creatinine 0.8 mg/dL (0.6-1.0) Estimated GFR (Cockcroft-Gault) 87.7 Glucose Level 89 mg/dL (70-99) Calcium Level 9.6 mg/dL (8.5-10.1) Medication Medications Current Medications Calcium Carbonate/ Glycine (Oscal) 500 mg BID PO Last administered on 12:28; Start 02/04/17 at 11:00 Vitamin D (Vitamin D3) 5,000 unit DAILY PO Last administered on 02/04/17 12: 28; Start 02/04/17 at 11:00 Comment Review of Relevant I have reviewed the following items nolan (where applicable) has been applied. YOLANDA PICKENS MD Feb 04, 2017 17:39
[2017-02-04 19:50] VITALS: BP 123/39
[2017-02-04] MEDS: ATORVASTATIN CALCIUM 20 MG TABLET PO SCH (20:56)
[2017-02-04 23:05] VITALS: BP 118/38
[2017-02-05] VITALS (8 sets, daily range): BP systolic 107–161; BP diastolic 30–68
[2017-02-05] MEDS: oxyCODONE/APAP 10/325 1 TAB TABLET PO PRN ×3 (03:34→20:41)
[2017-02-05 06:36] LABS: BLOOD UREA NITROGEN 21 mg/dL (7-20); CALCIUM 9.9 mg/dL (8.5-10.1); CARBON DIOXIDE 44 mmol/L (21-32); CHLORIDE 97 mmol/L (98-107); CREATININE 0.9 mg/dL (0.6-1.0); GFR 76.5; GLUCOSE 97 mg/dL (70-99); POTASSIUM 4.3 mmol/L (3.5-5.1); SODIUM 139 mmol/L (136-145)
[2017-02-05 07:14] LABS: BASO % 0 % (0-3); EOS % 1 % (0-3); HEMATOCRIT 34.4 % (36.0-47.0); HEMOGLOBIN 10.9 g/dL (12.0-15.5); LYMPH # 1.8 x10^3/uL (1.0-4.8); LYMPH % 25 % (24-48); MEAN CORPUSCULAR HEMOGLOBIN 27 pg (25-35); MEAN CORPUSCULAR HGB CONC 32 g/dL (31-37); MEAN CORPUSCULAR VOLUME 85 fL (79-100); MONO % 10 % (0-9); NEUT % 64 % (31-73); PLATELET COUNT 261 x10^3/uL (140-400); RED BLOOD COUNT 4.06 x10^6/uL (3.50-5.40); RED CELL DISTRIBUTION WIDTH 15.5 % (11.5-14.5); WHITE BLOOD COUNT 7.3 x10^3/uL (4.0-11.0)
[2017-02-05] MEDS ORDERED: LIDOCAINE 2%/EPI 1:100,000 20 ML VIAL. ONE (07:37)
[2017-02-05] MEDS: INSULIN ASPART 300 UNITS/3 ML INSULN.PEN SQ SCH ×6 (08:00→17:21)
[2017-02-05] MEDS ORDERED: BACITRACIN 50,000 UNIT in IV NORMAL SALINE 250ML 250 ML IRR ONE (08:30)
[2017-02-05] MEDS: ENOXAPARIN 40 MG/0.4 ML SYRINGE. SQ SCH ×2 (09:00→20:42)
[2017-02-05] MEDS: INSULIN DETEMIR 300 UNITS/3 ML INSULN.PEN. SQ SCH ×2 (09:00→20:49)
[2017-02-05] MEDS ORDERED: MIDAZOLAM HCL/PF 2 MG/2 ML VIAL. ONE ×3 (09:10→10:11)
[2017-02-05] MEDS ORDERED: fentaNYL PF VIAL 100 MCG/2 ML VIAL ONE ×3 (09:10→10:11)
[2017-02-05 09:15] LABS: INR 1.2 (0.8-1.1); PROTHROMBIN TIME PATIENT 14.1 SEC (11.7-14.0)
[2017-02-05] MEDS ORDERED: MIDAZOLAM HCL/PF 2 MG/2 ML VIAL. IV ONE (09:15)
[2017-02-05] MEDS ORDERED: fentaNYL PF VIAL 100 MCG/2 ML VIAL IV ONE (09:15)
[2017-02-05] MEDS ORDERED: LIDOCAINE 2%/EPI 1:100,000 20 ML VIAL. IJ ONE (09:15)
--- NOTE | 2017-02-05 09:46 | PDOC ---
MODERATE SEDATION ASSESSMENT RISKS/ALTERNATIVES Risks/Alternatives Risks and alternatives of this type of sedation and procedure discussed with: RISK/ALTERNATIVES: Patient H & P ON CHART H & P H & P on chart and reviewed for co-morbid conditions and appropriate labs. H&P ON CHART: Yes STATUS PREG STATUS ASSESSED: Yes MEDS/ALLERGIES REVIEWED Meds/Allergies Reviewed Medications and Allergies including time and route of recently administered narcotics and sedatives. MEDS/ALLERGIES REVIEWED: Yes ASA RATING ASA RATING: II AIRWAY ASSESSMENT Airway Assessment Airway patency, oral function limitations, presence of caps, crowns, dentures, partials, and ability to extend neck assessed. AIRWAY ASSESSMENT: Yes MALLAMPATI SCORE MALLAMPATI SCORE: II PRE-SEDATION ASSESSMENT PRE-SEDATION ASSESSMENT: Yes LIZBET LINDSAY MD Feb 05, 2017 09:46
[2017-02-05] MEDS ORDERED: ERGO500027 PO (11:56)
[2017-02-05] MEDS ORDERED: CYANOCOBALAMIN (VITAMIN B-12) 1,000 MCG/ML VIAL IM ONE (12:00)
[2017-02-05] MEDS ORDERED: ERGOCALCIFEROL (VITAMIN D2) 50,000 UNIT CAPSULE. PO SCH (12:00)
[2017-02-05] MEDS ORDERED: NO ANTICOAGULANT THERAPY. MC PRN (12:45)
[2017-02-05] MEDS: FAMOTIDINE 20 MG TABLET. PO SCH ×2 (12:53→20:41)
[2017-02-05] MEDS: CHOLECALCIFEROL (VITAMIN D3) 5,000 UNIT CAPSULE PO SCH (12:53)
[2017-02-05] MEDS: CALCIUM CARBONATE 500 MG TABLET PO SCH ×2 (12:54→20:40)
[2017-02-05] MEDS: POTASSIUM CHLORIDE 10 MEQ TABLET.ER. PO SCH ×2 (12:54→17:19)
[2017-02-05] MEDS: LOSARTAN POTASSIUM 50 MG TABLET. PO SCH (12:54)
[2017-02-05] MEDS: ASPIRIN ENTERIC COATED 81 MG TABLET.DR. PO SCH (12:54)
[2017-02-05] MEDS: FUROSEMIDE 80 MG TABLET. PO SCH ×2 (12:54→14:00)
[2017-02-05] MEDS: CLOPIDOGREL BISULFATE 75 MG TABLET PO SCH (12:54)
[2017-02-05] MEDS: FERROUS SULFATE 325 MG TABLET. PO SCH (12:54)
[2017-02-05] MEDS: METOPROLOL TART IMMED RELEASE 50 MG TABLET. PO SCH (12:55)
[2017-02-05] MEDS: VITAMIN B12,B9,B6 COMPLEX 1 TABLET. PO SCH (13:23)
--- NOTE | 2017-02-05 14:00 | RAD ---
Chest radiograph One View 02/05/2017 Clinical indication: Post pacemaker placement Comparison: Chest x-ray 01/28/2017 Findings: Prior median sternotomy and CABG. Interval placement of a dual-lead left chest wall cardiac conduction device. Mild cardiac megaly mild pulmonary venous congestion. There is mild bibasilar atelectasis. No definite pneumothorax, however evaluation is limited due to body habitus. Impression: 1. No definite pneumothorax status post pacemaker placement, however evaluation is limited due to body habitus. 2. Cardiomegaly and pulmonary venous congestion.
--- NOTE | 2017-02-05 16:57 | PDOC ---
PROGRESS NOTES Chief Complaint Chief Complaint HTN emergency POA, resolved LAbile HTN DM 2 Obesity BMI 41 CAD history with CABG CHF, chronic stable sinus bradycardia History of Present Illness History of Present Illness pacer placed today, difficulty technically, Dr. Crane would prefer to keep in hospital improved malignant HTN. . resting comfortably some pain cont on metoprolol bid Vitals Vitals Vital Signs Date Time Temp Pulse Resp B/P (MAP) Pulse Ox O2 Delivery O2 Flow Rate FiO2 02/05/17 15:25 96 Nasal Cannula 2.0 02/05/17 14:53 98.5 60 20 116/46 (69) 98.5 Physical Exam General: Alert, Oriented X3, Cooperative Heart: Normal S1, Normal S2 Lungs: Clear Abdomen: Normal bowel sounds, Soft Extremities: Normal pulses, Other (1+ edema) Skin: No rashes, No breakdown, No significant lesion Labs LABS Laboratory Tests Test 02/04/17 17:00 02/04/17 20:48 02/05/17 05:45 02/05/17 08:03 Glucose (Fingerstick) 180 mg/dL (70-99) 146 mg/dL (70-99) 104 mg/dL (70-99) White Blood Count 7.3 x10^3/uL (4.0-11.0) Red Blood Count 4.06 x10^6/uL (3.50-5.40) Hemoglobin 10.9 g/dL (12.0-15.5) Hematocrit 34.4 % (36.0-47.0) Mean Corpuscular Volume 85 fL (79-100) Mean Corpuscular Hemoglobin 27 pg (25-35) Mean Corpuscular Hemoglobin Concent 32 g/dL (31-37) Red Cell Distribution Width 15.5 % (11.5-14.5) Platelet Count 261 x10^3/uL (140-400) Neutrophils (%) (Auto) 64 % (31-73) Lymphocytes (%) (Auto) 25 % (24-48) Monocytes (%) (Auto) 10 % (0-9) Eosinophils (%) (Auto) 1 % (0-3) Basophils (%) (Auto) 0 % (0-3) Neutrophils # (Auto) 4.6 x10^3uL (1.8-7.7) Lymphocytes # (Auto) 1.8 x10^3/uL (1.0-4.8) Monocytes # (Auto) 0.7 x10^3/uL (0.0-1.1) Eosinophils # (Auto) 0.1 x10^3/uL (0.0-0.7) Basophils # (Auto) 0.0 x10^3/uL (0.0-0.2) Sodium Level 139 mmol/L (136-145) Potassium Level 4.3 mmol/L (3.5-5.1) Chloride Level 97 mmol/L (98-107) Carbon Dioxide Level 44 mmol/L (21-32) Anion Gap (6-14) Blood Urea Nitrogen 21 mg/dL (7-20) Creatinine 0.9 mg/dL (0.6-1.0) Estimated GFR (Cockcroft-Gault) 76.5 Glucose Level 97 mg/dL (70-99) Calcium Level 9.9 mg/dL (8.5-10.1) Test 02/05/17 08:30 02/05/17 11:28 Prothrombin Time 14.1 SEC (11.7-14.0) Prothromb Time International Ratio 1.2 (0.8-1.1) Glucose (Fingerstick) 175 mg/dL (70-99) Review of Systems Review of Systems no n.v.d Assessment and Plan Assessmemt and Plan Problems Medical Problems: (1) Congestive heart failure Status: Acute (2) Coronary artery disease Status: Acute (3) Malignant hypertension Status: Acute Problems: Comment Review of Relevant I have reviewed the following items nolan (where applicable) has been applied. Labs Laboratory Tests Test 02/03/17 17:03 02/03/17 20:51 02/04/17 04:05 02/04/17 07:46 Glucose (Fingerstick) 87 mg/dL (70-99) 156 mg/dL (70-99) 139 mg/dL (70-99) White Blood Count 7.3 x10^3/uL (4.0-11.0) Red Blood Count 4.08 x10^6/uL (3.50-5.40) Hemoglobin 11.0 g/dL (12.0-15.5) Hematocrit 34.4 % (36.0-47.0) Mean Corpuscular Volume 84 fL (79-100) Mean Corpuscular Hemoglobin 27 pg (25-35) Mean Corpuscular Hemoglobin Concent 32 g/dL (31-37) Red Cell Distribution Width 15.6 % (11.5-14.5) Platelet Count 267 x10^3/uL (140-400) Neutrophils (%) (Auto) 62 % (31-73) Lymphocytes (%) (Auto) 27 % (24-48) Monocytes (%) (Auto) 9 % (0-9) Eosinophils (%) (Auto) 1 % (0-3) Basophils (%) (Auto) 0 % (0-3) Neutrophils # (Auto) 4.5 x10^3uL (1.8-7.7) Lymphocytes # (Auto) 2.0 x10^3/uL (1.0-4.8) Monocytes # (Auto) 0.7 x10^3/uL (0.0-1.1) Eosinophils # (Auto) 0.1 x10^3/uL (0.0-0.7) Basophils # (Auto) 0.0 x10^3/uL (0.0-0.2) Sodium Level 140 mmol/L (136-145) Potassium Level 3.8 mmol/L (3.5-5.1) Chloride Level 97 mmol/L (98-107) Carbon Dioxide Level 43 mmol/L (21-32) Anion Gap 0 (6-14) Blood Urea Nitrogen 23 mg/dL (7-20) Creatinine 0.8 mg/dL (0.6-1.0) Estimated GFR (Cockcroft-Gault) 87.7 Glucose Level 89 mg/dL (70-99) Calcium Level 9.6 mg/dL (8.5-10.1) Test 02/04/17 10:59 02/04/17 17:00 02/04/17 20:48 02/05/17 05:45 Glucose (Fingerstick) 197 mg/dL (70-99) 180 mg/dL (70-99) 146 mg/dL (70-99) White Blood Count 7.3 x10^3/uL (4.0-11.0) Red Blood Count 4.06 x10^6/uL (3.50-5.40) Hemoglobin 10.9 g/dL (12.0-15.5) Hematocrit 34.4 % (36.0-47.0) Mean Corpuscular Volume 85 fL (79-100) Mean Corpuscular Hemoglobin 27 pg (25-35) Mean Corpuscular Hemoglobin Concent 32 g/dL (31-37) Red Cell Distribution Width 15.5 % (11.5-14.5) Platelet Count 261 x10^3/uL (140-400) Neutrophils (%) (Auto) 64 % (31-73) Lymphocytes (%) (Auto) 25 % (24-48) Monocytes (%) (Auto) 10 % (0-9) Eosinophils (%) (Auto) 1 % (0-3) Basophils (%) (Auto) 0 % (0-3) Neutrophils # (Auto) 4.6 x10^3uL (1.8-7.7) Lymphocytes # (Auto) 1.8 x10^3/uL (1.0-4.8) Monocytes # (Auto) 0.7 x10^3/uL (0.0-1.1) Eosinophils # (Auto) 0.1 x10^3/uL (0.0-0.7) Basophils # (Auto) 0.0 x10^3/uL (0.0-0.2) Sodium Level 139 mmol/L (136-145) Potassium Level 4.3 mmol/L (3.5-5.1) Chloride Level 97 mmol/L (98-107) Carbon Dioxide Level 44 mmol/L (21-32) Anion Gap (6-14) Blood Urea Nitrogen 21 mg/dL (7-20) Creatinine 0.9 mg/dL (0.6-1.0) Estimated GFR (Cockcroft-Gault) 76.5 Glucose Level 97 mg/dL (70-99) Calcium Level 9.9 mg/dL (8.5-10.1) Test 02/05/17 08:03 02/05/17 08:30 02/05/17 11:28 Glucose (Fingerstick) 104 mg/dL (70-99) 175 mg/dL (70-99) Prothrombin Time 14.1 SEC (11.7-14.0) Prothromb Time International Ratio 1.2 (0.8-1.1) Laboratory Tests Test 02/04/17 17:00 02/04/17 20:48 02/05/17 05:45 02/05/17 08:03 Glucose (Fingerstick) 180 mg/dL (70-99) 146 mg/dL (70-99) 104 mg/dL (70-99) White Blood Count 7.3 x10^3/uL (4.0-11.0) Red Blood Count 4.06 x10^6/uL (3.50-5.40) Hemoglobin 10.9 g/dL (12.0-15.5) Hematocrit 34.4 % (36.0-47.0) Mean Corpuscular Volume 85 fL (79-100) Mean Corpuscular Hemoglobin 27 pg (25-35) Mean Corpuscular Hemoglobin Concent 32 g/dL (31-37) Red Cell Distribution Width 15.5 % (11.5-14.5) Platelet Count 261 x10^3/uL (140-400) Neutrophils (%) (Auto) 64 % (31-73) Lymphocytes (%) (Auto) 25 % (24-48) Monocytes (%) (Auto) 10 % (0-9) Eosinophils (%) (Auto) 1 % (0-3) Basophils (%) (Auto) 0 % (0-3) Neutrophils # (Auto) 4.6 x10^3uL (1.8-7.7) Lymphocytes # (Auto) 1.8 x10^3/uL (1.0-4.8) Monocytes # (Auto) 0.7 x10^3/uL (0.0-1.1) Eosinophils # (Auto) 0.1 x10^3/uL (0.0-0.7) Basophils # (Auto) 0.0 x10^3/uL (0.0-0.2) Sodium Level 139 mmol/L (136-145) Potassium Level 4.3 mmol/L (3.5-5.1) Chloride Level 97 mmol/L (98-107) Carbon Dioxide Level 44 mmol/L (21-32) Anion Gap (6-14) Blood Urea Nitrogen 21 mg/dL (7-20) Creatinine 0.9 mg/dL (0.6-1.0) Estimated GFR (Cockcroft-Gault) 76.5 Glucose Level 97 mg/dL (70-99) Calcium Level 9.9 mg/dL (8.5-10.1) Test 02/05/17 08:30 02/05/17 11:28 Prothrombin Time 14.1 SEC (11.7-14.0) Prothromb Time International Ratio 1.2 (0.8-1.1) Glucose (Fingerstick) 175 mg/dL (70-99) Medications Current Medications Fentanyl Citrate (Fentanyl 2ml Vial) 50 mcg PRN Q15MIN PRN IV PAIN GREATER THAN 3/10 Last administered on 01/29/17 08:02; Start 01/28/17 at 12:30; Stop 01/29/17 at 12:29; Status DC Sodium Chloride 1,000 ml @ 125 mls/hr Q8H IV Last administered on 01/28/17 13 :05; Start 01/28/17 at 12:21; Stop 01/28/17 at 20:20; Status DC Ondansetron HCl (Zofran) 4 mg 1X ONCE IV Last administered on 01/28/17 13:05 ; Start 01/28/17 at 12:30; Stop 01/28/17 at 12:31; Status DC Labetalol HCl (Normodyne) 20 mg 1X ONCE IVP Last administered on 01/28/17 13: 07; Start 01/28/17 at 12:30; Stop 01/28/17 at 12:33; Status DC Nicardipine HCl 50 mg/Sodium Chloride 270 ml @ 0 mls/hr CONT PRN IV SEE I/O RECORD Last administered on 01/28/17 13:33; Start 01/28/17 at 13:15; Stop 01/30 at 10:59; Status DC Ondansetron HCl (Zofran) 4 mg PRN Q8HRS PRN IV NAUSEA/VOMITING; Start 01/28/17 at 13:30; Stop 01/28/17 at 14:14; Status DC Fentanyl Citrate (Fentanyl 2ml Vial) 50 mcg PRN Q2HR PRN IV PAIN Last administered on 01/28/17 20:06; Start 01/28/17 at 13:30; Stop 01/29/17 at 13:29 ; Status DC Sodium Chloride 1,000 ml @ 0 mls/hr Q0M IV ; Start 01/28/17 at 13:29; Stop 01/29/17 at 13:28; Status DC Acetaminophen (Tylenol) 650 mg PRN Q4HRS PRN PO FEVER; Start 01/28/17 at 13:30 ; Stop 01/29/17 at 13:29; Status DC Ondansetron HCl (Zofran) 4 mg PRN Q6HRS PRN IV NAUSEA/VOMITING; Start 01/28/17 at 14:15; Stop 01/29/17 at 14:14; Status DC Acetaminophen (Tylenol) 500 mg PRN Q6HRS PRN PO MILD PAIN / TEMP; Start at 14:15 Ibuprofen (Motrin) 600 mg PRN Q6HRS PRN PO INFLAMMATION; Start 01/28/17 at 14: 15; Stop 02/03/17 at 13:15; Status DC Diphenhydramine HCl (Benadryl) 25 mg PRN QHS PRN PO INSOMNIA; Start 01/28/17 at 14:15 Aspirin (Ecotrin) 81 mg DAILY PO Last administered on 02/05/17 12:54; Start 01/29/17 at 09:00 Atorvastatin Calcium (Lipitor) 20 mg HS PO Last administered on 02/04/17 20: 56; Start 01/28/17 at 21:00 Clopidogrel Bisulfate (Plavix) 75 mg DAILY PO Last administered on 02/05/17 12:54; Start 01/29/17 at 09:00 Famotidine (Pepcid) 20 mg BID PO Last administered on 02/05/17 12:53; Start 01/28/17 at 21:00 Ferrous Sulfate (Feosol) 325 mg DAILY PO Last administered on 02/05/17 12:54 ; Start 01/29/17 at 09:00 Furosemide (Lasix) 80 mg [id number] PO Last administered on 02/05/17 12:54; Start 01/28/17 at 15:00 Insulin Aspart (NovoLOG) 20 units TIDWMEALS SQ Last administered on 02/05/17 13:00; Start 01/28/17 at 17:00 Insulin Detemir (Levemir) 32 units BID SQ Last administered on 02/04/17 21:03 ; Start 01/28/17 at 21:00 Metoprolol Tartrate (Lopressor) 25 mg BID PO ; Start 01/28/17 at 21:00; Stop at 21:00; Status DC Nitroglycerin (Nitrostat) 0.4 mg PRN Q5MIN PRN SL CHEST PAIN; Start 01/28/17 at 14:15 Oxycodone/ Acetaminophen (Percocet 10/325) 1 tab PRN QID PRN PO MODERATE PAIN Last administered on 02/04/17 07:40; Start 01/28/17 at 14:15 Oxycodone/ Acetaminophen (Percocet 10/325) 2 tab PRN Q6HRS PRN PO SEVERE PAIN Last administered on 02/05/17 13:24; Start 01/28/17 at 14:15 Potassium Chloride (Klor-Con) 10 meq BIDWMEALS PO Last administered on 12:54; Start 01/28/17 at 17:00 Insulin Aspart (NovoLOG) 0-9 UNITS TIDWMEALS SQ Last administered on 13:01; Start 01/28/17 at 17:00 Dextrose (Dextrose 50%-Water Syringe) 12.5 gm PRN Q15MIN PRN IV SEE COMMENTS; Start 01/28/17 at 15:15 Losartan Potassium (Cozaar) 100 mg DAILY PO Last administered on 02/05/17 12: 54; Start 01/28/17 at 16:00 Metoprolol Tartrate (Lopressor) 50 mg BID PO Last administered on 01/30/17 08: 44; Start 01/28/17 at 21:00; Stop 01/30/17 at 15:27; Status DC Ondansetron HCl (Zofran) 4 mg PRN Q6HRS PRN IV NAUSEA/VOMITING Last administered on 01/29/17 17:58; Start 01/29/17 at 17:45 Metoprolol Tartrate (Lopressor) 50 mg DAILY PO Last administered on 02/05/17 12:55; Start 01/31/17 at 09:00 Metoprolol Tartrate (Lopressor) 25 mg QHS PO Last administered on 02/04/17 20 :56; Start 01/30/17 at 21:00 Labetalol HCl (Normodyne) 10 mg PRN Q2HR PRN IVP HYPERTENSION, SEE COMMENTS; Start 01/31/17 at 07:45 Enoxaparin Sodium (Lovenox 40mg Syringe) 40 mg Q12HR SQ Last administered on 20:57; Start 02/03/17 at 14:00 Vitamin D (Vitamin D3) 5,000 unit DAILY PO Last administered on 02/05/17 12: 53; Start 02/04/17 at 11:00 Calcium Carbonate/ Glycine (Oscal) 500 mg BID PO Last administered on 12:54; Start 02/04/17 at 11:00 Cefazolin Sodium/ Dextrose 50 ml @ 100 mls/hr 1X ONCE IV Last administered on 02/05/17 09:37; Start 02/05/17 at 06:00; Stop 02/05/17 at 06:29; Status DC Lidocaine/ Epinephrine (Xylocaine 2%-Epi 1:100,000) 20 ml STK-MED ONCE .ROUTE ; Start 02/05/17 at 07:37; Stop 02/05/17 at 07:38; Status DC Bacitracin 46449 unit/Sodium Chloride 250 ml @ 0 mls/hr 1X ONCE IRR Last administered on 02/05/17 10:23; Start 02/05/17 at 08:30; Stop 02/05/17 at 08 :31; Status DC Fentanyl Citrate (Fentanyl 2ml Vial) 100 mcg STK-MED ONCE .ROUTE ; Start at 09:10; Stop 02/05/17 at 09:11; Status DC Midazolam HCl (Versed) 2 mg STK-MED ONCE .ROUTE ; Start 02/05/17 at 09:10; Stop 02/05/17 at 09:11; Status DC Midazolam HCl (Versed) 2 mg 1X ONCE IV Last administered on 02/05/17 10:25; Start 02/05/17 at 09:15; Stop 02/05/17 at 09:33; Status DC Fentanyl Citrate (Fentanyl 2ml Vial) 100 mcg 1X ONCE IV Last administered on 02/05/17 10:25; Start 02/05/17 at 09:15; Stop 02/05/17 at 09:33; Status DC Lidocaine/ Epinephrine (Xylocaine 2%-Epi 1:100,000) 40 ml 1X ONCE IJ Last administered on 02/05/17 10:24; Start 02/05/17 at 09:15; Stop 02/05/17 at 09 :33; Status DC Cefazolin Sodium/ Dextrose 50 ml @ As Directed STK-MED ONCE IV ; Start at 09:20; Stop 02/05/17 at 09:21; Status DC Fentanyl Citrate (Fentanyl 2ml Vial) 100 mcg STK-MED ONCE .ROUTE ; Start at 10:04; Stop 02/05/17 at 10:05; Status DC Midazolam HCl (Versed) 2 mg STK-MED ONCE .ROUTE ; Start 02/05/17 at 10:04; Stop 02/05/17 at 10:05; Status DC Fentanyl Citrate (Fentanyl 2ml Vial) 100 mcg STK-MED ONCE .ROUTE ; Start at 10:11; Stop 02/05/17 at 10:12; Status DC Midazolam HCl (Versed) 2 mg STK-MED ONCE .ROUTE ; Start 02/05/17 at 10:11; Stop 02/05/17 at 10:12; Status DC Ergocalciferol (Vitamin D2) 50,000 unit WEEKLY PO Last administered on 13:23; Start 02/05/17 at 12:00 Vitamin B Complex (Folbic Tablet) 1 tab DAILY PO Last administered on 13:23; Start 02/05/17 at 12:00 Cyanocobalamin (Vitamin B-12) 1,000 mcg 1X ONCE IM Last administered on 13:24; Start 02/05/17 at 12:00; Stop 02/05/17 at 12:05; Status DC Info 1 ea CONT PRN PRN MC PER PROTOCOL; Start 02/05/17 at 12:45 Cefazolin Sodium/ Dextrose 50 ml @ 100 mls/hr 1X ONCE IV ; Start 02/05/17 at 13:00; Stop 02/05/17 at 13:29; Status DC Cefazolin Sodium/ Dextrose 50 ml @ 100 mls/hr 1X ONCE IV Last administered on 02/05/17 15:28; Start 02/05/17 at 15:30; Stop 02/05/17 at 15:59; Status DC Active Scripts Active Percocet 10-325 Mg Tablet (Oxycodone/Acetaminophen) 1 Each Tablet 1 Tab PO Q6- 8HRS PRN Lasix (Furosemide) 80 Mg Tablet 1 Tab PO BID Reported Metoprolol Tartrate 50 Mg Tablet 1 Tab PO BID Ferrous Sulfate 325 Mg Tablet 1 Tab PO DAILY NITROGLYCERIN SubLingual (Nitroglycerin) 0.4 Mg Tab.subl 0.4 Mg SL PRN Q5MIN PRN Percocet 10-325 Mg Tablet (Oxycodone/Acetaminophen) 1 Each Tablet 2 Tab PO PRN Q6HRS PRN Levemir Flextouch (Insulin Detemir) 100 Unit/1 Ml Insuln.pen 32 Unit SQ BID Novolog Flexpen (Insulin Aspart) 100 Unit/1 Ml Insuln.pen 20 Unit SQ TIDWMEALS Atorvastatin Calcium 20 Mg Tablet 20 Mg PO HS Potassium Chloride 10 Meq Capsule.er 10 Meq PO BID Aspir 81 (Aspirin) 81 Mg Tablet.dr 1 Tab PO DAILY Clopidogrel (Clopidogrel Bisulfate) 75 Mg Tablet 1 Tab PO DAILY Famotidine 20 Mg Tablet 20 Mg PO BID Vitals/I & O Vital Sign - Last 24 Hours 02/04/17 02/04/17 02/04/17 02/04/17 19:50 20:15 20:56 23:05 Temp 98.3 98.1 98.3 98.1 Pulse 64 64 56 Resp 18 20 B/P (MAP) 123/39 (67) 123/39 118/38 (64) Pulse Ox 96 95 O2 Delivery Nasal Cannula Nasal Cannula Nasal Cannula O2 Flow Rate 2.0 2.0 2.0 02/05/17 02/05/17 02/05/17 02/05/17 03:20 07:30 08:20 10:25 Temp 98.2 98.6 98.2 98.6 Pulse 61 66 Resp 18 19 29 B/P (MAP) 131/54 (79) 118/53 (74) Pulse Ox 96 97 97 O2 Delivery Nasal Cannula Nasal Cannula Nasal Cannula Nasal Cannula O2 Flow Rate 2.0 2.0 2.0 3.0 02/05/17 02/05/17 02/05/17 02/05/17 10:26 11:33 12:54 12:55 Pulse 88 92 92 92 Resp 20 19 B/P (MAP) 135/64 (87) 135/64 135/64 Pulse Ox 100 97 O2 Delivery Nasal Cannula Nasal Cannula O2 Flow Rate 2.0 2.0 02/05/17 02/05/17 02/05/17 02/05/17 13:24 13:50 14:53 15:25 Temp 98.5 98.5 Pulse 60 Resp 20 B/P (MAP) 116/46 (69) Pulse Ox 97 97 96 96 O2 Delivery Nasal Cannula Nasal Cannula Nasal Cannula Nasal Cannula O2 Flow Rate 2.0 2.0 2.0 2.0 Intake and Output 02/04/17 02/04/17 02/05/17 15:00 23:00 07:00 Intake Total 500 ml 2000 ml 480 ml Output Total 2475 ml 400 ml Balance 500 ml -475 ml 80 ml LÓPEZ BARRIOS MD Feb 05, 2017 16:57
--- NOTE | 2017-02-05 18:44 | PDOC ---
PROGRESS NOTES Assessment Assessment Weakness. Fall. HTN DM CAD, s/p CABG Bradycardia. CHF VIOLETTA. Narcotic use. Vit D deficiency. No evidence of acute CVA this time. RECOMMENDATIONS/PLAN: Treat medical diseases. Vit D 5000 units daily. Calcium 500 mg bid. Cardiology on team. Pacemaker placement performed by Cardiology on 02/05/17. OT/PT. Past Medical History Cardiovascular: HTN Pulmonary: No pertinent hx GI: No pertinent hx Heme/Onc: No pertinent hx Hepatobiliary: No pertinent hx Psych: No pertinent hx Rheumatologic: No pertinent hx Endocrine: Diabetes Past Surgical History Appendectomy, Total knee replacement Family History Diabetes Social History Smoke: No ALCOHOL: none Drugs: None ALLERGY: Reviewed. MEDICATIONS: Refer to MAR REVIEW OF SYSTEMS: Constitutional: No malnutrition, weight loss, cachexia. Head: No traumatic brain or head injury. Skin: No edema, or rash. Ear: No infection. Eyes: No vision loss, or diplopia. Nose: No bleeding or purulent discharges. Hearing: No hearing decrease. Neck: No injury. Breast: No history of cancer, masses, or discharges. Cardiac: CAD, CHF, HTN. Pulmonary: No COPD.. GI: No GI Ulcer, GI bleeding Urinary/genital: UTI. Endocrine: Diabetes Mellitus, obesity. Skeletomuscular: No muscular atrophy Neurological: see HP. Psychiatric: Denies drug use/abuse. Otherwise, not [id number] review of systems. PHYSICAL EXAMINATION: General appearance in no acute distress. HEENT: Normocephalic and nontraumatic. Eyes, nose, ears, and throat are unremarkable. Neck is supple. No lymphadenopathy. No bruits are heard over the carotid artery. No Crepitus. Cardiovascular: S1, S2, regular rate and rhythm. Pulmonary: Clear to auscultation bilaterally. Abdomen: Bowel sounds are positive. Abdomen is soft, nontender, and nondistended. Extremities: No rash, lesions, or edema. No restriction of range of motion NEUROLOGICAL EXAMINATION: Awake. Oriented to time, place and person. PERRL. EOMI. CN: no focal findings. Muscle tone: within normal. Muscle strength: 4+ DTR: 1+ Plantar reflex: Flexor response bilaterally Gait: at her baseline normal. Sensory exam: no abnormal findings. No cerebellar signs elicited. F-T-N test fine.. Objective Objective Vital Signs Date Time Temp Pulse Resp B/P (MAP) Pulse Ox O2 Delivery O2 Flow Rate FiO2 02/05/17 15:25 96 Nasal Cannula 2.0 02/05/17 14:53 98.5 60 20 116/46 (69) 98.5 Intake and Output 02/05/17 07:00 Intake Total 2980 ml Output Total 2875 ml Balance 105 ml Intake Oral 2980 ml Output Urine Total 2875 ml # Bowel Movements 1 Vitals Signs Vitals VS - Last 72 Hours, by Label Date Time Temp Pulse Resp B/P (MAP) Pulse Ox O2 Delivery O2 Flow Rate FiO2 02/05/17 15:25 96 Nasal Cannula 2.0 02/05/17 14:53 98.5 60 20 116/46 (69) 96 Nasal Cannula 2.0 98.5 02/05/17 13:50 97 Nasal Cannula 2.0 02/05/17 13:24 97 Nasal Cannula 2.0 02/05/17 12:55 92 135/64 02/05/17 12:54 92 135/64 02/05/17 11:33 92 19 135/64 (87) 97 Nasal Cannula 2.0 02/05/17 10:26 88 20 100 Nasal Cannula 2.0 02/05/17 10:25 29 97 Nasal Cannula 3.0 02/05/17 08:20 Nasal Cannula 2.0 02/05/17 07:30 98.6 66 19 118/53 (74) 97 Nasal Cannula 2.0 98.6 02/05/17 03:20 98.2 61 18 131/54 (79) 96 Nasal Cannula 2.0 98.2 02/04/17 23:05 98.1 56 20 118/38 (64) 95 Nasal Cannula 2.0 98.1 02/04/17 20:56 64 123/39 02/04/17 20:15 Nasal Cannula 2.0 02/04/17 19:50 98.3 64 18 123/39 (67) 96 Nasal Cannula 2.0 98.3 02/04/17 15:18 Nasal Cannula 2.0 02/04/17 15:00 98.1 73 19 136/68 (90) 97 Nasal Cannula 2.0 98.1 02/04/17 11:00 98.6 58 19 153/63 (93) 96 BiPAP/CPAP 98.6 02/04/17 09:38 67 132/50 02/04/17 09:29 67 132/50 02/04/17 08:30 Nasal Cannula 2.0 02/04/17 08:00 Nasal Cannula 2.0 02/04/17 07:40 96 Nasal Cannula 2.0 02/04/17 07:00 98.8 67 19 132/50 (77) 99 BiPAP/CPAP 98.8 Laboratory Laboratory Laboratory Tests Test 02/04/17 20:48 02/05/17 05:45 02/05/17 08:03 02/05/17 08:30 Glucose (Fingerstick) 146 mg/dL (70-99) 104 mg/dL (70-99) White Blood Count 7.3 x10^3/uL (4.0-11.0) Red Blood Count 4.06 x10^6/uL (3.50-5.40) Hemoglobin 10.9 g/dL (12.0-15.5) Hematocrit 34.4 % (36.0-47.0) Mean Corpuscular Volume 85 fL (79-100) Mean Corpuscular Hemoglobin 27 pg (25-35) Mean Corpuscular Hemoglobin Concent 32 g/dL (31-37) Red Cell Distribution Width 15.5 % (11.5-14.5) Platelet Count 261 x10^3/uL (140-400) Neutrophils (%) (Auto) 64 % (31-73) Lymphocytes (%) (Auto) 25 % (24-48) Monocytes (%) (Auto) 10 % (0-9) Eosinophils (%) (Auto) 1 % (0-3) Basophils (%) (Auto) 0 % (0-3) Neutrophils # (Auto) 4.6 x10^3uL (1.8-7.7) Lymphocytes # (Auto) 1.8 x10^3/uL (1.0-4.8) Monocytes # (Auto) 0.7 x10^3/uL (0.0-1.1) Eosinophils # (Auto) 0.1 x10^3/uL (0.0-0.7) Basophils # (Auto) 0.0 x10^3/uL (0.0-0.2) Sodium Level 139 mmol/L (136-145) Potassium Level 4.3 mmol/L (3.5-5.1) Chloride Level 97 mmol/L (98-107) Carbon Dioxide Level 44 mmol/L (21-32) Anion Gap (6-14) Blood Urea Nitrogen 21 mg/dL (7-20) Creatinine 0.9 mg/dL (0.6-1.0) Estimated GFR (Cockcroft-Gault) 76.5 Glucose Level 97 mg/dL (70-99) Calcium Level 9.9 mg/dL (8.5-10.1) Prothrombin Time 14.1 SEC (11.7-14.0) Prothromb Time International Ratio 1.2 (0.8-1.1) Test 02/05/17 11:28 02/05/17 16:59 Glucose (Fingerstick) 175 mg/dL (70-99) 145 mg/dL (70-99) Medication Medications Current Medications Bacitracin 53648 unit/Sodium Chloride 250 ml @ 0 mls/hr 1X ONCE IRR Last administered on 02/05/17 10:23; Start 02/05/17 at 08:30; Stop 02/05/17 at 08 :31; Status DC Cefazolin Sodium/ Dextrose 50 ml @ 100 mls/hr 1X ONCE IV Last administered on 02/05/17 09:37; Start 02/05/17 at 06:00; Stop 02/05/17 at 06:29; Status DC Cefazolin Sodium/ Dextrose 50 ml @ 100 mls/hr 1X ONCE IV ; Start 02/05/17 at 13:00; Stop 02/05/17 at 13:29; Status DC Cefazolin Sodium/ Dextrose 50 ml @ 100 mls/hr 1X ONCE IV Last administered on 02/05/17 15:28; Start 02/05/17 at 15:30; Stop 02/05/17 at 15:59; Status DC Cefazolin Sodium/ Dextrose 50 ml @ As Directed STK-MED ONCE IV ; Start at 09:20; Stop 02/05/17 at 09:21; Status DC Cyanocobalamin (Vitamin B-12) 1,000 mcg 1X ONCE IM Last administered on 13:24; Start 02/05/17 at 12:00; Stop 02/05/17 at 12:05; Status DC Ergocalciferol (Vitamin D2) 50,000 unit WEEKLY PO Last administered on 13:23; Start 02/05/17 at 12:00 Fentanyl Citrate (Fentanyl 2ml Vial) 100 mcg 1X ONCE IV Last administered on 02/05/17 10:25; Start 02/05/17 at 09:15; Stop 02/05/17 at 09:33; Status DC Fentanyl Citrate (Fentanyl 2ml Vial) 100 mcg STK-MED ONCE .ROUTE ; Start at 09:10; Stop 02/05/17 at 09:11; Status DC Fentanyl Citrate (Fentanyl 2ml Vial) 100 mcg STK-MED ONCE .ROUTE ; Start at 10:04; Stop 02/05/17 at 10:05; Status DC Fentanyl Citrate (Fentanyl 2ml Vial) 100 mcg STK-MED ONCE .ROUTE ; Start at 10:11; Stop 02/05/17 at 10:12; Status DC Info 1 ea CONT PRN PRN MC PER PROTOCOL; Start 02/05/17 at 12:45 Lidocaine/ Epinephrine (Xylocaine 2%-Epi 1:100,000) 20 ml STK-MED ONCE .ROUTE ; Start 02/05/17 at 07:37; Stop 02/05/17 at 07:38; Status DC Lidocaine/ Epinephrine (Xylocaine 2%-Epi 1:100,000) 40 ml 1X ONCE IJ Last administered on 02/05/17 10:24; Start 02/05/17 at 09:15; Stop 02/05/17 at 09 :33; Status DC Midazolam HCl (Versed) 2 mg 1X ONCE IV Last administered on 02/05/17 10:25; Start 02/05/17 at 09:15; Stop 02/05/17 at 09:33; Status DC Midazolam HCl (Versed) 2 mg STK-MED ONCE .ROUTE ; Start 02/05/17 at 09:10; Stop 02/05/17 at 09:11; Status DC Midazolam HCl (Versed) 2 mg STK-MED ONCE .ROUTE ; Start 02/05/17 at 10:04; Stop 02/05/17 at 10:05; Status DC Midazolam HCl (Versed) 2 mg STK-MED ONCE .ROUTE ; Start 02/05/17 at 10:11; Stop 02/05/17 at 10:12; Status DC Vitamin B Complex (Folbic Tablet) 1 tab DAILY PO Last administered on t 13:23; Start 02/05/17 at 12:00 Comment Review of Relevant I have reviewed the following items nolan (where applicable) has been applied. YOLANDA PICKENS MD Feb 05, 2017 18:44
--- NOTE | 2017-02-05 19:05 | PDOC4 ---
PROCEDURE Procedure PROCEDURE NOTE PROCEDURE: INSERTION OF DUAL CHAMBER PERMANENT [facility] MRI COMPATIBLE PRE-OP DX: BRADYCARDIA, INAPPROPRIATE CHRONOTROPIC RESPONSE POST-OP DX: SAME PROCEDURE: PACER INSERTED IN L SHOULDER VIA SUBCLAVIAN VEIN. PT TOLERATED THE PROCEDURE WELL. LIZBET LINDSAY MD Feb 05, 2017 19:05
[2017-02-05] MEDS: ATORVASTATIN CALCIUM 20 MG TABLET PO SCH (20:40)
[2017-02-05] MEDS: METOPROLOL TART IMMED RELEASE 25 MG TABLET. PO SCH (20:40)
[2017-02-06] MEDS: oxyCODONE/APAP 10/325 1 TAB TABLET PO PRN ×4 (03:27→22:21)
[2017-02-06 03:30] VITALS: BP 158/72
[2017-02-06 07:00] VITALS: BP 142/47
[2017-02-06] MEDS: INSULIN ASPART 300 UNITS/3 ML INSULN.PEN SQ SCH ×6 (08:00→18:01)
[2017-02-06] MEDS: CALCIUM CARBONATE 500 MG TABLET PO SCH ×2 (09:00→20:58)
[2017-02-06] MEDS: FERROUS SULFATE 325 MG TABLET. PO SCH (09:35)
[2017-02-06] MEDS: VITAMIN B12,B9,B6 COMPLEX 1 TABLET. PO SCH (09:35)
[2017-02-06] MEDS: ASPIRIN ENTERIC COATED 81 MG TABLET.DR. PO SCH (09:35)
[2017-02-06] MEDS: CLOPIDOGREL BISULFATE 75 MG TABLET PO SCH (09:35)
[2017-02-06] MEDS: FAMOTIDINE 20 MG TABLET. PO SCH ×2 (09:35→20:58)
[2017-02-06] MEDS: POTASSIUM CHLORIDE 10 MEQ TABLET.ER. PO SCH ×2 (09:35→17:59)
[2017-02-06] MEDS: FUROSEMIDE 80 MG TABLET. PO SCH ×2 (09:35→14:43)
[2017-02-06] MEDS: CHOLECALCIFEROL (VITAMIN D3) 5,000 UNIT CAPSULE PO SCH (09:35)
[2017-02-06] MEDS: METOPROLOL TART IMMED RELEASE 50 MG TABLET. PO SCH (09:37)
[2017-02-06] MEDS: LOSARTAN POTASSIUM 50 MG TABLET. PO SCH (09:37)
[2017-02-06] MEDS: ENOXAPARIN 40 MG/0.4 ML SYRINGE. SQ SCH ×2 (09:38→20:57)
[2017-02-06] MEDS: INSULIN DETEMIR 300 UNITS/3 ML INSULN.PEN. SQ SCH ×2 (09:44→21:00)
[2017-02-06] MEDS ORDERED: OXYC-328 PO (10:13)
[2017-02-06] MEDS ORDERED: VITA1TAB19 PO (10:15)
--- NOTE | 2017-02-06 10:19 | RAD ---
2 views of the Chest 02/06/2017 2:45 PM Indication: 1 day post pacemaker implantation Comparison: Chest radiograph, yesterday Findings: Dual-lead pacemaking device from left subclavian approach is grossly similar. No pneumothorax or pleural effusion is seen. Heart remains enlarged. Median sternotomy and aortic calcification is similar. Scattered areas of what appears to be scarring are seen in the right midlung and lung bases. This is unchanged. No acute osseous changes are seen. Impression: Stable appearance of the chest without evidence of acute cardiopulmonary process.
--- NOTE | 2017-02-06 10:22 | PDOC3 ---
Discharge Summary Visit Information Date of Admission: Jan 28, 2017 Date of Discharge: Feb 06, 2017 Admitting Diagnosis: chest pain and falls Final Diagnosis HTN emergency POA, resolved on DC, losartan added DM 2 Obesity BMI 42 CAD history with CABG CHF, chronic stable sinus bradycardia vitamin D deficiency, level < 4 some pain, stable angina Problems Medical Problems: (1) Congestive heart failure Status: Acute (2) Coronary artery disease Status: Acute (3) Malignant hypertension Status: Acute Brief Hospital Course Allergies Allergies Coded Allergies Type Severity Reaction Last Updated Verified No Known Drug Allergies 08/01/13 No Vital Signs Vital Signs Date Time Temp Pulse Resp B/P (MAP) Pulse Ox O2 Delivery O2 Flow Rate FiO2 02/06/17 09:37 60 142/47 02/06/17 09:36 99 Nasal Cannula 3.0 02/06/17 07:00 98.5 20 98.5 Lab Results Laboratory Tests Test 02/04/17 10:59 02/04/17 17:00 02/04/17 20:48 02/05/17 05:45 Glucose (Fingerstick) 197 mg/dL (70-99) 180 mg/dL (70-99) 146 mg/dL (70-99) White Blood Count 7.3 x10^3/uL (4.0-11.0) Red Blood Count 4.06 x10^6/uL (3.50-5.40) Hemoglobin 10.9 g/dL (12.0-15.5) Hematocrit 34.4 % (36.0-47.0) Mean Corpuscular Volume 85 fL (79-100) Mean Corpuscular Hemoglobin 27 pg (25-35) Mean Corpuscular Hemoglobin Concent 32 g/dL (31-37) Red Cell Distribution Width 15.5 % (11.5-14.5) Platelet Count 261 x10^3/uL (140-400) Neutrophils (%) (Auto) 64 % (31-73) Lymphocytes (%) (Auto) 25 % (24-48) Monocytes (%) (Auto) 10 % (0-9) Eosinophils (%) (Auto) 1 % (0-3) Basophils (%) (Auto) 0 % (0-3) Neutrophils # (Auto) 4.6 x10^3uL (1.8-7.7) Lymphocytes # (Auto) 1.8 x10^3/uL (1.0-4.8) Monocytes # (Auto) 0.7 x10^3/uL (0.0-1.1) Eosinophils # (Auto) 0.1 x10^3/uL (0.0-0.7) Basophils # (Auto) 0.0 x10^3/uL (0.0-0.2) Sodium Level 139 mmol/L (136-145) Potassium Level 4.3 mmol/L (3.5-5.1) Chloride Level 97 mmol/L (98-107) Carbon Dioxide Level 44 mmol/L (21-32) Anion Gap (6-14) Blood Urea Nitrogen 21 mg/dL (7-20) Creatinine 0.9 mg/dL (0.6-1.0) Estimated GFR (Cockcroft-Gault) 76.5 Glucose Level 97 mg/dL (70-99) Calcium Level 9.9 mg/dL (8.5-10.1) Test 02/05/17 08:03 02/05/17 08:30 02/05/17 11:28 02/05/17 16:59 Glucose (Fingerstick) 104 mg/dL (70-99) 175 mg/dL (70-99) 145 mg/dL (70-99) Prothrombin Time 14.1 SEC (11.7-14.0) Prothromb Time International Ratio 1.2 (0.8-1.1) Test 02/05/17 20:45 02/06/17 07:42 Glucose (Fingerstick) 136 mg/dL (70-99) 126 mg/dL (70-99) Laboratory Tests Test 02/05/17 11:28 02/05/17 16:59 02/05/17 20:45 02/06/17 07:42 Glucose (Fingerstick) 175 mg/dL (70-99) 145 mg/dL (70-99) 136 mg/dL (70-99) 126 mg/dL (70-99) Brief Hospital Course Ms. Laguna is a 62 old admit with chest pain. some weakness and difficulty walking symptomatic scar, given pacer Neuro consult, mult vitamin def. B12 low normal range, Vit D < 4 pacer placed, after she intially declined, then took another day to sched, Pacer placement technically difficult due to body habitus, , Dr. Crane improved malignant HTN. . resting comfortably before DC , some soreness and pain Dr. Pat to follow patient after discharge Discharge Information Condition at Discharge: Improved Follow Up: Weeks Disposition/Orders: D/C to Home Scheduled Aspirin (Aspir 81), 1 TAB PO DAILY, (Reported) Atorvastatin Calcium (Atorvastatin Calcium), 20 MG PO HS, (Reported) Clopidogrel Bisulfate (Clopidogrel), 1 TAB PO DAILY, (Reported) Famotidine (Famotidine), 20 MG PO BID, (Reported) Ferrous Sulfate (Ferrous Sulfate), 1 TAB PO DAILY, (Reported) Furosemide (Lasix), 1 TAB PO BID Insulin Aspart (Novolog Flexpen), 20 UNIT SQ TIDWMEALS, (Reported) Insulin Detemir (Levemir Flextouch), 32 UNIT SQ BID, (Reported) Metoprolol Tartrate (Metoprolol Tartrate), 1 TAB PO BID, (Reported) Potassium Chloride (Potassium Chloride), 10 MEQ PO BID, (Reported) Scheduled PRN Nitroglycerin (NITROGLYCERIN SubLingual), 0.4 MG SL PRN Q5MIN PRN for CHEST PAIN , (Reported) Oxycodone/Apap 10-325 (Percocet 10-325 Mg Tablet), 1 TAB PO Q6-8HRS PRN for PAIN Oxycodone/Apap 10-325 (Percocet 10-325 Mg Tablet), 2 TAB PO PRN Q6HRS PRN for PAIN Patient Instructions Patient Instructions > 30 min face to face discussion w. patient LÓPEZ BARRIOS MD Feb 06, 2017 10:22
[2017-02-06 11:00] VITALS: BP 109/34
[2017-02-06 15:00] VITALS: BP 139/43
--- NOTE | 2017-02-06 15:42 | CARD ---
APPROVED REPORT Procedure(s) performed: MODERATE SEDATION: 75 MINUTES HISTORY The patient is a 62 year-old female with a history of : previous LA, coronary artery disease, hyperte nsion, previous CABG (The CABG date was ), Pt having bradycardia and inapropriate chronotropic respon se that is going for a dual chamber permanent pacemaker. PROCEDURE NARRATIVE The pt was brought into the slab miller operator electively for insertion of a pacer after obtaining informed con sent. The L shoulder area was prepped and draped in the usual fashion. Area infiltrated with Lido. Skin incised and a pocket was created with blunt dissection. The L subclavian was entered with Seldinger tech. in a 2 wire aproach. A peelaway sheath inserted over one of the wires. A [employer] MRI compatible pacer lead was advanced all the way to the RV. All parameters were good for sensing and capture. The sheath was then removed. A peelaway sheath was inserted over the other wire and then a [employer] MRI compatible pacer lead was t hen advanced to the RA. Once I was satisfied with the position of the lead in the RA and the parameters of sensing and captur e the sheath was removed. Both leads were sutured in place. A [employer] MRI compatible generator was then connected to the leads after verifiying the identity of e ach. The pocket was irrigated after the function of the pacer was checked and found to be normal. The generator was placed in the pocket and then the pocket was closed with 3 layers of running suture . Skin edges were aproximated with Dermabond. A dressing was applied over the area after the Dermabond was dry. Pt transfered back to her room in satisfactory condition after tolerating the procedure well. Conclusion This pt tolerated the insertion of a dual chamber pacer well. From a Cardiac standpoint she will follow up with Dr Pat as an out-pt.
--- NOTE | 2017-02-06 16:41 | PDOC ---
PROGRESS NOTES Assessment Assessment Weakness. Fall. HTN DM CAD, s/p CABG Bradycardia. CHF VIOLETTA. Narcotic use. Vit D deficiency. No evidence of acute CVA this time. RECOMMENDATIONS/PLAN: Treat medical diseases. Vit D 5000 units daily, FU with PCP. Calcium 500 mg bid, FU with PCP. Cardiology on team. Pacemaker placement performed by Cardiology on 02/05/17. OT/PT. Past Medical History Cardiovascular: HTN Pulmonary: No pertinent hx GI: No pertinent hx Heme/Onc: No pertinent hx Hepatobiliary: No pertinent hx Psych: No pertinent hx Rheumatologic: No pertinent hx Endocrine: Diabetes Past Surgical History Appendectomy, Total knee replacement Family History Diabetes Social History Smoke: No ALCOHOL: none Drugs: None ALLERGY: Reviewed. MEDICATIONS: Refer to MAR REVIEW OF SYSTEMS: Constitutional: No malnutrition, weight loss, cachexia. Head: No traumatic brain or head injury. Skin: No edema, or rash. Ear: No infection. Eyes: No vision loss, or diplopia. Nose: No bleeding or purulent discharges. Hearing: No hearing decrease. Neck: No injury. Breast: No history of cancer, masses, or discharges. Cardiac: CAD, CHF, HTN. Pulmonary: No COPD.. GI: No GI Ulcer, GI bleeding Urinary/genital: UTI. Endocrine: Diabetes Mellitus, obesity. Skeletomuscular: No muscular atrophy Neurological: see HP. Psychiatric: Denies drug use/abuse. Otherwise, not -rkpcc review of systems. PHYSICAL EXAMINATION: General appearance in no acute distress. HEENT: Normocephalic and nontraumatic. Eyes, nose, ears, and throat are unremarkable. Neck is supple. No lymphadenopathy. No bruits are heard over the carotid artery. No Crepitus. Cardiovascular: S1, S2, regular rate and rhythm. Pulmonary: Clear to auscultation bilaterally. Abdomen: Bowel sounds are positive. Abdomen is soft, nontender, and nondistended. Extremities: No rash, lesions, or edema. No restriction of range of motion NEUROLOGICAL EXAMINATION: Awake. Oriented to time, place and person. PERRL. EOMI. CN: no focal findings. Muscle tone: within normal. Muscle strength: 4+ DTR: 1+ Plantar reflex: Flexor response bilaterally Gait: at her baseline normal. Sensory exam: no abnormal findings. No cerebellar signs elicited. F-T-N test fine.. Objective Objective Vital Signs Date Time Temp Pulse Resp B/P (MAP) Pulse Ox O2 Delivery O2 Flow Rate FiO2 02/06/17 15:46 99 Room Air 02/06/17 15:00 98.7 67 18 139/43 (75) 3.0 98.7 Intake and Output 02/06/17 07:00 Intake Total 1350 ml Output Total 500 ml Balance 850 ml Intake Oral 1350 ml Output Urine Total 500 ml Vitals Signs Vitals VS - Last 72 Hours, by Label Date Time Temp Pulse Resp B/P (MAP) Pulse Ox O2 Delivery O2 Flow Rate FiO2 02/06/17 15:46 99 Room Air 02/06/17 15:00 98.7 67 18 139/43 (75) 92 Nasal Cannula 3.0 98.7 02/06/17 12:01 99 Nasal Cannula 3.0 02/06/17 11:00 98.9 60 18 109/34 (59) 98 Nasal Cannula 3.0 98.9 02/06/17 09:37 60 142/47 02/06/17 09:37 60 142/47 02/06/17 09:36 99 Nasal Cannula 3.0 02/06/17 08:00 Nasal Cannula 2.0 02/06/17 07:00 98.5 60 20 142/47 (78) 99 Nasal Cannula 3.0 98.5 02/06/17 03:30 98.5 87 22 158/72 (100) 96 Nasal Cannula 3.0 98.5 02/06/17 03:27 20 Nasal Cannula 02/05/17 23:23 98.7 58 24 107/37 (60) 94 Nasal Cannula 98.7 02/05/17 20:40 54 127/30 02/05/17 20:00 Nasal Cannula 2.0 02/05/17 20:00 98.2 54 127/30 (62) 96 Nasal Cannula 2.0 98.2 02/05/17 19:00 98.2 54 20 127/30 (62) Nasal Cannula 2.0 98.2 02/05/17 14:53 98.5 60 20 116/46 (69) 96 Nasal Cannula 2.0 98.5 02/05/17 13:50 97 Nasal Cannula 2.0 02/05/17 13:24 97 Nasal Cannula 2.0 02/05/17 12:55 92 135/64 02/05/17 12:54 92 135/64 02/05/17 11:33 92 19 135/64 (87) 97 Nasal Cannula 2.0 02/05/17 10:26 88 20 100 Nasal Cannula 2.0 02/05/17 10:25 29 97 Nasal Cannula 3.0 02/05/17 08:20 Nasal Cannula 2.0 02/05/17 07:30 98.6 66 19 118/53 (74) 97 Nasal Cannula 2.0 98.6 Laboratory Laboratory Laboratory Tests Test 02/05/17 16:59 02/05/17 20:45 02/06/17 07:42 02/06/17 11:58 Glucose (Fingerstick) 145 mg/dL (70-99) 136 mg/dL (70-99) 126 mg/dL (70-99) 185 mg/dL (70-99) Comment Review of Relevant I have reviewed the following items nolan (where applicable) has been applied. YOLANDA PICKENS MD Feb 06, 2017 16:41
--- NOTE | 2017-02-06 16:46 | PDOC ---
PROGRESS NOTES Subjective Subjective The pacemaker was checked and it is functioning normally Objective Objective Vital Signs Date Time Temp Pulse Resp B/P (MAP) Pulse Ox O2 Delivery O2 Flow Rate FiO2 02/06/17 15:46 99 Room Air 02/06/17 15:00 98.7 67 18 139/43 (75) 3.0 98.7 Assessment Assessment The patient's pacemaker is functioning normally. May be discharged to snf. Problems Medical Problems: (1) Congestive heart failure Status: Acute (2) Coronary artery disease Status: Acute (3) Malignant hypertension Status: Acute Comment Review of Relevant I have reviewed the following items nolan (where applicable) has been applied. Labs Laboratory Tests Test 02/04/17 17:00 02/04/17 20:48 02/05/17 05:45 02/05/17 08:03 Glucose (Fingerstick) 180 mg/dL (70-99) 146 mg/dL (70-99) 104 mg/dL (70-99) White Blood Count 7.3 x10^3/uL (4.0-11.0) Red Blood Count 4.06 x10^6/uL (3.50-5.40) Hemoglobin 10.9 g/dL (12.0-15.5) Hematocrit 34.4 % (36.0-47.0) Mean Corpuscular Volume 85 fL (79-100) Mean Corpuscular Hemoglobin 27 pg (25-35) Mean Corpuscular Hemoglobin Concent 32 g/dL (31-37) Red Cell Distribution Width 15.5 % (11.5-14.5) Platelet Count 261 x10^3/uL (140-400) Neutrophils (%) (Auto) 64 % (31-73) Lymphocytes (%) (Auto) 25 % (24-48) Monocytes (%) (Auto) 10 % (0-9) Eosinophils (%) (Auto) 1 % (0-3) Basophils (%) (Auto) 0 % (0-3) Neutrophils # (Auto) 4.6 x10^3uL (1.8-7.7) Lymphocytes # (Auto) 1.8 x10^3/uL (1.0-4.8) Monocytes # (Auto) 0.7 x10^3/uL (0.0-1.1) Eosinophils # (Auto) 0.1 x10^3/uL (0.0-0.7) Basophils # (Auto) 0.0 x10^3/uL (0.0-0.2) Sodium Level 139 mmol/L (136-145) Potassium Level 4.3 mmol/L (3.5-5.1) Chloride Level 97 mmol/L (98-107) Carbon Dioxide Level 44 mmol/L (21-32) Anion Gap (6-14) Blood Urea Nitrogen 21 mg/dL (7-20) Creatinine 0.9 mg/dL (0.6-1.0) Estimated GFR (Cockcroft-Gault) 76.5 Glucose Level 97 mg/dL (70-99) Calcium Level 9.9 mg/dL (8.5-10.1) Test 02/05/17 08:30 02/05/17 11:28 02/05/17 16:59 02/05/17 20:45 Prothrombin Time 14.1 SEC (11.7-14.0) Prothromb Time International Ratio 1.2 (0.8-1.1) Glucose (Fingerstick) 175 mg/dL (70-99) 145 mg/dL (70-99) 136 mg/dL (70-99) Test 02/06/17 07:42 02/06/17 11:58 Glucose (Fingerstick) 126 mg/dL (70-99) 185 mg/dL (70-99) Laboratory Tests Test 02/05/17 16:59 02/05/17 20:45 02/06/17 07:42 02/06/17 11:58 Glucose (Fingerstick) 145 mg/dL (70-99) 136 mg/dL (70-99) 126 mg/dL (70-99) 185 mg/dL (70-99) Medications Current Medications Fentanyl Citrate (Fentanyl 2ml Vial) 50 mcg PRN Q15MIN PRN IV PAIN GREATER THAN 3/10 Last administered on 01/29/17 08:02; Start 01/28/17 at 12:30; Stop 01/29/17 at 12:29; Status DC Sodium Chloride 1,000 ml @ 125 mls/hr Q8H IV Last administered on 01/28/17 13 :05; Start 01/28/17 at 12:21; Stop 01/28/17 at 20:20; Status DC Ondansetron HCl (Zofran) 4 mg 1X ONCE IV Last administered on 01/28/17 13:05 ; Start 01/28/17 at 12:30; Stop 01/28/17 at 12:31; Status DC Labetalol HCl (Normodyne) 20 mg 1X ONCE IVP Last administered on 01/28/17 13: 07; Start 01/28/17 at 12:30; Stop 01/28/17 at 12:33; Status DC Nicardipine HCl 50 mg/Sodium Chloride 270 ml @ 0 mls/hr CONT PRN IV SEE I/O RECORD Last administered on 01/28/17 13:33; Start 01/28/17 at 13:15; Stop 01/30 at 10:59; Status DC Ondansetron HCl (Zofran) 4 mg PRN Q8HRS PRN IV NAUSEA/VOMITING; Start 01/28/17 at 13:30; Stop 01/28/17 at 14:14; Status DC Fentanyl Citrate (Fentanyl 2ml Vial) 50 mcg PRN Q2HR PRN IV PAIN Last administered on 01/28/17 20:06; Start 01/28/17 at 13:30; Stop 01/29/17 at 13:29 ; Status DC Sodium Chloride 1,000 ml @ 0 mls/hr Q0M IV ; Start 01/28/17 at 13:29; Stop 01/29/17 at 13:28; Status DC Acetaminophen (Tylenol) 650 mg PRN Q4HRS PRN PO FEVER; Start 01/28/17 at 13:30 ; Stop 01/29/17 at 13:29; Status DC Ondansetron HCl (Zofran) 4 mg PRN Q6HRS PRN IV NAUSEA/VOMITING; Start 01/28/17 at 14:15; Stop 01/29/17 at 14:14; Status DC Acetaminophen (Tylenol) 500 mg PRN Q6HRS PRN PO MILD PAIN / TEMP; Start at 14:15 Ibuprofen (Motrin) 600 mg PRN Q6HRS PRN PO INFLAMMATION; Start 01/28/17 at 14: 15; Stop 02/03/17 at 13:15; Status DC Diphenhydramine HCl (Benadryl) 25 mg PRN QHS PRN PO INSOMNIA; Start 01/28/17 at 14:15 Aspirin (Ecotrin) 81 mg DAILY PO Last administered on 02/06/17 09:35; Start 01/29/17 at 09:00 Atorvastatin Calcium (Lipitor) 20 mg HS PO Last administered on 02/05/17 20: 40; Start 01/28/17 at 21:00 Clopidogrel Bisulfate (Plavix) 75 mg DAILY PO Last administered on 02/06/17 09:35; Start 01/29/17 at 09:00 Famotidine (Pepcid) 20 mg BID PO Last administered on 02/06/17 09:35; Start 01/28/17 at 21:00 Ferrous Sulfate (Feosol) 325 mg DAILY PO Last administered on 02/06/17 09:35 ; Start 01/29/17 at 09:00 Furosemide (Lasix) 80 mg BID92 PO Last administered on 02/06/17 14:43; Start 01/28/17 at 15:00 Insulin Aspart (NovoLOG) 20 units TIDWMEALS SQ Last administered on 02/06/17 13:18; Start 01/28/17 at 17:00 Insulin Detemir (Levemir) 32 units BID SQ Last administered on 02/06/17 09:44 ; Start 01/28/17 at 21:00 Metoprolol Tartrate (Lopressor) 25 mg BID PO ; Start 01/28/17 at 21:00; Stop at 21:00; Status DC Nitroglycerin (Nitrostat) 0.4 mg PRN Q5MIN PRN SL CHEST PAIN; Start 01/28/17 at 14:15 Oxycodone/ Acetaminophen (Percocet 10/325) 1 tab PRN QID PRN PO MODERATE PAIN Last administered on 02/04/17 07:40; Start 01/28/17 at 14:15 Oxycodone/ Acetaminophen (Percocet 10/325) 2 tab PRN Q6HRS PRN PO SEVERE PAIN Last administered on 02/06/17 15:46; Start 01/28/17 at 14:15 Potassium Chloride (Klor-Con) 10 meq BIDWMEALS PO Last administered on 09:35; Start 01/28/17 at 17:00 Insulin Aspart (NovoLOG) 0-9 UNITS TIDWMEALS SQ Last administered on 13:18; Start 01/28/17 at 17:00 Dextrose (Dextrose 50%-Water Syringe) 12.5 gm PRN Q15MIN PRN IV SEE COMMENTS; Start 01/28/17 at 15:15 Losartan Potassium (Cozaar) 100 mg DAILY PO Last administered on 02/06/17 09: 37; Start 01/28/17 at 16:00 Metoprolol Tartrate (Lopressor) 50 mg BID PO Last administered on 01/30/17 08: 44; Start 01/28/17 at 21:00; Stop 01/30/17 at 15:27; Status DC Ondansetron HCl (Zofran) 4 mg PRN Q6HRS PRN IV NAUSEA/VOMITING Last administered on 01/29/17 17:58; Start 01/29/17 at 17:45 Metoprolol Tartrate (Lopressor) 50 mg DAILY PO Last administered on 02/06/17 09:37; Start 01/31/17 at 09:00 Metoprolol Tartrate (Lopressor) 25 mg QHS PO Last administered on 02/05/17 20 :40; Start 01/30/17 at 21:00 Labetalol HCl (Normodyne) 10 mg PRN Q2HR PRN IVP HYPERTENSION, SEE COMMENTS; Start 01/31/17 at 07:45 Enoxaparin Sodium (Lovenox 40mg Syringe) 40 mg Q12HR SQ Last administered on 09:38; Start 02/03/17 at 14:00 Vitamin D (Vitamin D3) 5,000 unit DAILY PO Last administered on 02/06/17 09: 35; Start 02/04/17 at 11:00 Calcium Carbonate/ Glycine (Oscal) 500 mg BID PO Last administered on 09:00; Start 02/04/17 at 11:00 Cefazolin Sodium/ Dextrose 50 ml @ 100 mls/hr 1X ONCE IV Last administered on 02/05/17 09:37; Start 02/05/17 at 06:00; Stop 02/05/17 at 06:29; Status DC Lidocaine/ Epinephrine (Xylocaine 2%-Epi 1:100,000) 20 ml STK-MED ONCE .ROUTE ; Start 02/05/17 at 07:37; Stop 02/05/17 at 07:38; Status DC Bacitracin 88393 unit/Sodium Chloride 250 ml @ 0 mls/hr 1X ONCE IRR Last administered on 02/05/17 10:23; Start 02/05/17 at 08:30; Stop 02/05/17 at 08 :31; Status DC Fentanyl Citrate (Fentanyl 2ml Vial) 100 mcg STK-MED ONCE .ROUTE ; Start at 09:10; Stop 02/05/17 at 09:11; Status DC Midazolam HCl (Versed) 2 mg STK-MED ONCE .ROUTE ; Start 02/05/17 at 09:10; Stop 02/05/17 at 09:11; Status DC Midazolam HCl (Versed) 2 mg 1X ONCE IV Last administered on 02/05/17 10:25; Start 02/05/17 at 09:15; Stop 02/05/17 at 09:33; Status DC Fentanyl Citrate (Fentanyl 2ml Vial) 100 mcg 1X ONCE IV Last administered on 02/05/17 10:25; Start 02/05/17 at 09:15; Stop 02/05/17 at 09:33; Status DC Lidocaine/ Epinephrine (Xylocaine 2%-Epi 1:100,000) 40 ml 1X ONCE IJ Last administered on 02/05/17 10:24; Start 02/05/17 at 09:15; Stop 02/05/17 at 09 :33; Status DC Cefazolin Sodium/ Dextrose 50 ml @ As Directed STK-MED ONCE IV ; Start at 09:20; Stop 02/05/17 at 09:21; Status DC Fentanyl Citrate (Fentanyl 2ml Vial) 100 mcg STK-MED ONCE .ROUTE ; Start at 10:04; Stop 02/05/17 at 10:05; Status DC Midazolam HCl (Versed) 2 mg STK-MED ONCE .ROUTE ; Start 02/05/17 at 10:04; Stop 02/05/17 at 10:05; Status DC Fentanyl Citrate (Fentanyl 2ml Vial) 100 mcg STK-MED ONCE .ROUTE ; Start at 10:11; Stop 02/05/17 at 10:12; Status DC Midazolam HCl (Versed) 2 mg STK-MED ONCE .ROUTE ; Start 02/05/17 at 10:11; Stop 02/05/17 at 10:12; Status DC Ergocalciferol (Vitamin D2) 50,000 unit WEEKLY PO Last administered on 13:23; Start 02/05/17 at 12:00 Vitamin B Complex (Folbic Tablet) 1 tab DAILY PO Last administered on 09:35; Start 02/05/17 at 12:00 Cyanocobalamin (Vitamin B-12) 1,000 mcg 1X ONCE IM Last administered on 13:24; Start 02/05/17 at 12:00; Stop 02/05/17 at 12:05; Status DC Info 1 ea CONT PRN PRN MC PER PROTOCOL; Start 02/05/17 at 12:45 Cefazolin Sodium/ Dextrose 50 ml @ 100 mls/hr 1X ONCE IV ; Start 02/05/17 at 13:00; Stop 02/05/17 at 13:29; Status DC Cefazolin Sodium/ Dextrose 50 ml @ 100 mls/hr 1X ONCE IV Last administered on 02/05/17 15:28; Start 02/05/17 at 15:30; Stop 02/05/17 at 15:59; Status DC Active Scripts Active Percocet 10-325 Mg Tablet (Oxycodone/Acetaminophen) 1 Each Tablet 2 Tab PO PRN Q6HRS PRN Percocet 10-325 Mg Tablet (Oxycodone/Acetaminophen) 1 Each Tablet 1 Tab PO Q6- 8HRS PRN Lasix (Furosemide) 80 Mg Tablet 1 Tab PO BID Reported Metoprolol Tartrate 50 Mg Tablet 1 Tab PO BID Ferrous Sulfate 325 Mg Tablet 1 Tab PO DAILY NITROGLYCERIN SubLingual (Nitroglycerin) 0.4 Mg Tab.subl 0.4 Mg SL PRN Q5MIN PRN Levemir Flextouch (Insulin Detemir) 100 Unit/1 Ml Insuln.pen 32 Unit SQ BID Novolog Flexpen (Insulin Aspart) 100 Unit/1 Ml Insuln.pen 20 Unit SQ TIDWMEALS Atorvastatin Calcium 20 Mg Tablet 20 Mg PO HS Potassium Chloride 10 Meq Capsule.er 10 Meq PO BID Aspir 81 (Aspirin) 81 Mg Tablet.dr 1 Tab PO DAILY Clopidogrel (Clopidogrel Bisulfate) 75 Mg Tablet 1 Tab PO DAILY Famotidine 20 Mg Tablet 20 Mg PO BID Vitals/I & O Vital Sign - Last 24 Hours 02/05/17 02/05/17 02/05/17 02/05/17 19:00 20:00 20:00 20:40 Temp 98.2 98.2 98.2 98.2 Pulse 54 54 54 Resp 20 B/P (MAP) 127/30 (62) 127/30 (62) 127/30 Pulse Ox 96 O2 Delivery Nasal Cannula Nasal Cannula Nasal Cannula O2 Flow Rate 2.0 2.0 2.0 02/05/17 02/06/17 02/06/17 02/06/17 23:23 03:27 03:30 07:00 Temp 98.7 98.5 98.5 98.7 98.5 98.5 Pulse 58 87 60 Resp 24 20 22 20 B/P (MAP) 107/37 (60) 158/72 (100) 142/47 (78) Pulse Ox 94 96 99 O2 Delivery Nasal Cannula Nasal Cannula Nasal Cannula Nasal Cannula O2 Flow Rate 3.0 3.0 02/06/17 02/06/17 02/06/17 02/06/17 08:00 09:36 09:37 09:37 Pulse 60 60 B/P (MAP) 142/47 142/47 Pulse Ox 99 O2 Delivery Nasal Cannula Nasal Cannula O2 Flow Rate 2.0 3.0 02/06/17 02/06/17 02/06/17 02/06/17 11:00 12:01 15:00 15:46 Temp 98.9 98.7 98.9 98.7 Pulse 60 67 Resp 18 18 B/P (MAP) 109/34 (59) 139/43 (75) Pulse Ox 98 99 92 99 O2 Delivery Nasal Cannula Nasal Cannula Nasal Cannula Room Air O2 Flow Rate 3.0 3.0 3.0 LIZBET LINDSAY MD Feb 06, 2017 16:46
[2017-02-06 19:30] VITALS: BP 141/51
[2017-02-06] MEDS: METOPROLOL TART IMMED RELEASE 25 MG TABLET. PO SCH (20:58)
[2017-02-06] MEDS: ATORVASTATIN CALCIUM 20 MG TABLET PO SCH (20:58)
--- NOTE | 2017-02-06 22:59 | PDOC ---
PROGRESS NOTES Chief Complaint Chief Complaint HTN emergency POA, resolved LAbile HTN DM 2 Obesity BMI 41 CAD history with CABG CHF, chronic stable sinus bradycardia History of Present Illness History of Present Illness pacer placed today, difficulty technically, Dr. Crane would prefer to keep in hospital improved malignant HTN. . resting comfortably some pain cont on metoprolol bid Vitals Vitals Vital Signs Date Time Temp Pulse Resp B/P (MAP) Pulse Ox O2 Delivery O2 Flow Rate FiO2 02/06/17 20:58 93 141/51 02/06/17 19:30 99.3 17 97 Nasal Cannula 2.0 99.3 Physical Exam General: Alert, Oriented X3, Cooperative Heart: Normal S1, Normal S2 Lungs: Clear Abdomen: Normal bowel sounds, Soft Extremities: Normal pulses, Other (1+ edema) Skin: No rashes, No breakdown, No significant lesion Labs LABS Laboratory Tests Test 02/06/17 07:42 02/06/17 11:58 02/06/17 17:49 Glucose (Fingerstick) 126 mg/dL (70-99) 185 mg/dL (70-99) 102 mg/dL (70-99) Review of Systems Review of Systems fever at 2300, Assessment and Plan Assessmemt and Plan UA, CXr, blood CX, will consider abx Problems Medical Problems: (1) Congestive heart failure Status: Acute (2) Coronary artery disease Status: Acute (3) Malignant hypertension Status: Acute Problems: Comment Review of Relevant I have reviewed the following items nolan (where applicable) has been applied. Labs Laboratory Tests Test 02/05/17 05:45 02/05/17 08:03 02/05/17 08:30 02/05/17 11:28 White Blood Count 7.3 x10^3/uL (4.0-11.0) Red Blood Count 4.06 x10^6/uL (3.50-5.40) Hemoglobin 10.9 g/dL (12.0-15.5) Hematocrit 34.4 % (36.0-47.0) Mean Corpuscular Volume 85 fL (79-100) Mean Corpuscular Hemoglobin 27 pg (25-35) Mean Corpuscular Hemoglobin Concent 32 g/dL (31-37) Red Cell Distribution Width 15.5 % (11.5-14.5) Platelet Count 261 x10^3/uL (140-400) Neutrophils (%) (Auto) 64 % (31-73) Lymphocytes (%) (Auto) 25 % (24-48) Monocytes (%) (Auto) 10 % (0-9) Eosinophils (%) (Auto) 1 % (0-3) Basophils (%) (Auto) 0 % (0-3) Neutrophils # (Auto) 4.6 x10^3uL (1.8-7.7) Lymphocytes # (Auto) 1.8 x10^3/uL (1.0-4.8) Monocytes # (Auto) 0.7 x10^3/uL (0.0-1.1) Eosinophils # (Auto) 0.1 x10^3/uL (0.0-0.7) Basophils # (Auto) 0.0 x10^3/uL (0.0-0.2) Sodium Level 139 mmol/L (136-145) Potassium Level 4.3 mmol/L (3.5-5.1) Chloride Level 97 mmol/L (98-107) Carbon Dioxide Level 44 mmol/L (21-32) Anion Gap (6-14) Blood Urea Nitrogen 21 mg/dL (7-20) Creatinine 0.9 mg/dL (0.6-1.0) Estimated GFR (Cockcroft-Gault) 76.5 Glucose Level 97 mg/dL (70-99) Calcium Level 9.9 mg/dL (8.5-10.1) Glucose (Fingerstick) 104 mg/dL (70-99) 175 mg/dL (70-99) Prothrombin Time 14.1 SEC (11.7-14.0) Prothromb Time International Ratio 1.2 (0.8-1.1) Test 02/05/17 16:59 02/05/17 20:45 02/06/17 07:42 02/06/17 11:58 Glucose (Fingerstick) 145 mg/dL (70-99) 136 mg/dL (70-99) 126 mg/dL (70-99) 185 mg/dL (70-99) Test 02/06/17 17:49 Glucose (Fingerstick) 102 mg/dL (70-99) Laboratory Tests Test 02/06/17 07:42 02/06/17 11:58 02/06/17 17:49 Glucose (Fingerstick) 126 mg/dL (70-99) 185 mg/dL (70-99) 102 mg/dL (70-99) Medications Current Medications Fentanyl Citrate (Fentanyl 2ml Vial) 50 mcg PRN Q15MIN PRN IV PAIN GREATER THAN 3/10 Last administered on 01/29/17 08:02; Start 01/28/17 at 12:30; Stop 01/29/17 at 12:29; Status DC Sodium Chloride 1,000 ml @ 125 mls/hr Q8H IV Last administered on 01/28/17 13 :05; Start 01/28/17 at 12:21; Stop 01/28/17 at 20:20; Status DC Ondansetron HCl (Zofran) 4 mg 1X ONCE IV Last administered on 01/28/17 13:05 ; Start 01/28/17 at 12:30; Stop 01/28/17 at 12:31; Status DC Labetalol HCl (Normodyne) 20 mg 1X ONCE IVP Last administered on 01/28/17 13: 07; Start 01/28/17 at 12:30; Stop 01/28/17 at 12:33; Status DC Nicardipine HCl 50 mg/Sodium Chloride 270 ml @ 0 mls/hr CONT PRN IV SEE I/O RECORD Last administered on 01/28/17 13:33; Start 01/28/17 at 13:15; Stop 01/30 at 10:59; Status DC Ondansetron HCl (Zofran) 4 mg PRN Q8HRS PRN IV NAUSEA/VOMITING; Start 01/28/17 at 13:30; Stop 01/28/17 at 14:14; Status DC Fentanyl Citrate (Fentanyl 2ml Vial) 50 mcg PRN Q2HR PRN IV PAIN Last administered on 01/28/17 20:06; Start 01/28/17 at 13:30; Stop 01/29/17 at 13:29 ; Status DC Sodium Chloride 1,000 ml @ 0 mls/hr Q0M IV ; Start 01/28/17 at 13:29; Stop 01/29/17 at 13:28; Status DC Acetaminophen (Tylenol) 650 mg PRN Q4HRS PRN PO FEVER; Start 01/28/17 at 13:30 ; Stop 01/29/17 at 13:29; Status DC Ondansetron HCl (Zofran) 4 mg PRN Q6HRS PRN IV NAUSEA/VOMITING; Start 01/28/17 at 14:15; Stop 01/29/17 at 14:14; Status DC Acetaminophen (Tylenol) 500 mg PRN Q6HRS PRN PO MILD PAIN / TEMP; Start at 14:15 Ibuprofen (Motrin) 600 mg PRN Q6HRS PRN PO INFLAMMATION; Start 01/28/17 at 14: 15; Stop 02/03/17 at 13:15; Status DC Diphenhydramine HCl (Benadryl) 25 mg PRN QHS PRN PO INSOMNIA Last administered on 02/06/17 20:58; Start 01/28/17 at 14:15 Aspirin (Ecotrin) 81 mg DAILY PO Last administered on 02/06/17 09:35; Start 01/29/17 at 09:00 Atorvastatin Calcium (Lipitor) 20 mg HS PO Last administered on 02/06/17 20: 58; Start 01/28/17 at 21:00 Clopidogrel Bisulfate (Plavix) 75 mg DAILY PO Last administered on 02/06/17 09:35; Start 01/29/17 at 09:00 Famotidine (Pepcid) 20 mg BID PO Last administered on 02/06/17 20:58; Start 01/28/17 at 21:00 Ferrous Sulfate (Feosol) 325 mg DAILY PO Last administered on 02/06/17 09:35 ; Start 01/29/17 at 09:00 Furosemide (Lasix) 80 mg BID92 PO Last administered on 02/06/17 14:43; Start 01/28/17 at 15:00 Insulin Aspart (NovoLOG) 20 units TIDWMEALS SQ Last administered on 02/06/17 18:01; Start 01/28/17 at 17:00 Insulin Detemir (Levemir) 32 units BID SQ Last administered on 02/06/17 09:44 ; Start 01/28/17 at 21:00 Metoprolol Tartrate (Lopressor) 25 mg BID PO ; Start 01/28/17 at 21:00; Stop at 21:00; Status DC Nitroglycerin (Nitrostat) 0.4 mg PRN Q5MIN PRN SL CHEST PAIN; Start 01/28/17 at 14:15 Oxycodone/ Acetaminophen (Percocet 10/325) 1 tab PRN QID PRN PO MODERATE PAIN Last administered on 02/04/17 07:40; Start 01/28/17 at 14:15 Oxycodone/ Acetaminophen (Percocet 10/325) 2 tab PRN Q6HRS PRN PO SEVERE PAIN Last administered on 02/06/17 22:21; Start 01/28/17 at 14:15 Potassium Chloride (Klor-Con) 10 meq BIDWMEALS PO Last administered on 17:59; Start 01/28/17 at 17:00 Insulin Aspart (NovoLOG) 0-9 UNITS TIDWMEALS SQ Last administered on 13:18; Start 01/28/17 at 17:00 Dextrose (Dextrose 50%-Water Syringe) 12.5 gm PRN Q15MIN PRN IV SEE COMMENTS; Start 01/28/17 at 15:15 Losartan Potassium (Cozaar) 100 mg DAILY PO Last administered on 02/06/17 09: 37; Start 01/28/17 at 16:00 Metoprolol Tartrate (Lopressor) 50 mg BID PO Last administered on 01/30/17 08: 44; Start 01/28/17 at 21:00; Stop 01/30/17 at 15:27; Status DC Ondansetron HCl (Zofran) 4 mg PRN Q6HRS PRN IV NAUSEA/VOMITING Last administered on 01/29/17 17:58; Start 01/29/17 at 17:45 Metoprolol Tartrate (Lopressor) 50 mg DAILY PO Last administered on 02/06/17 09:37; Start 01/31/17 at 09:00 Metoprolol Tartrate (Lopressor) 25 mg QHS PO Last administered on 02/06/17 20 :58; Start 01/30/17 at 21:00 Labetalol HCl (Normodyne) 10 mg PRN Q2HR PRN IVP HYPERTENSION, SEE COMMENTS; Start 01/31/17 at 07:45 Enoxaparin Sodium (Lovenox 40mg Syringe) 40 mg Q12HR SQ Last administered on 20:57; Start 02/03/17 at 14:00 Vitamin D (Vitamin D3) 5,000 unit DAILY PO Last administered on 02/06/17 09: 35; Start 02/04/17 at 11:00 Calcium Carbonate/ Glycine (Oscal) 500 mg BID PO Last administered on 20:58; Start 02/04/17 at 11:00 Cefazolin Sodium/ Dextrose 50 ml @ 100 mls/hr 1X ONCE IV Last administered on 02/05/17 09:37; Start 02/05/17 at 06:00; Stop 02/05/17 at 06:29; Status DC Lidocaine/ Epinephrine (Xylocaine 2%-Epi 1:100,000) 20 ml STK-MED ONCE .ROUTE ; Start 02/05/17 at 07:37; Stop 02/05/17 at 07:38; Status DC Bacitracin 74096 unit/Sodium Chloride 250 ml @ 0 mls/hr 1X ONCE IRR Last administered on 02/05/17 10:23; Start 02/05/17 at 08:30; Stop 02/05/17 at 08 :31; Status DC Fentanyl Citrate (Fentanyl 2ml Vial) 100 mcg STK-MED ONCE .ROUTE ; Start at 09:10; Stop 02/05/17 at 09:11; Status DC Midazolam HCl (Versed) 2 mg STK-MED ONCE .ROUTE ; Start 02/05/17 at 09:10; Stop 02/05/17 at 09:11; Status DC Midazolam HCl (Versed) 2 mg 1X ONCE IV Last administered on 02/05/17 10:25; Start 02/05/17 at 09:15; Stop 02/05/17 at 09:33; Status DC Fentanyl Citrate (Fentanyl 2ml Vial) 100 mcg 1X ONCE IV Last administered on 02/05/17 10:25; Start 02/05/17 at 09:15; Stop 02/05/17 at 09:33; Status DC Lidocaine/ Epinephrine (Xylocaine 2%-Epi 1:100,000) 40 ml 1X ONCE IJ Last administered on 02/05/17 10:24; Start 02/05/17 at 09:15; Stop 02/05/17 at 09 :33; Status DC Cefazolin Sodium/ Dextrose 50 ml @ As Directed STK-MED ONCE IV ; Start at 09:20; Stop 02/05/17 at 09:21; Status DC Fentanyl Citrate (Fentanyl 2ml Vial) 100 mcg STK-MED ONCE .ROUTE ; Start at 10:04; Stop 02/05/17 at 10:05; Status DC Midazolam HCl (Versed) 2 mg STK-MED ONCE .ROUTE ; Start 02/05/17 at 10:04; Stop 02/05/17 at 10:05; Status DC Fentanyl Citrate (Fentanyl 2ml Vial) 100 mcg STK-MED ONCE .ROUTE ; Start at 10:11; Stop 02/05/17 at 10:12; Status DC Midazolam HCl (Versed) 2 mg STK-MED ONCE .ROUTE ; Start 02/05/17 at 10:11; Stop 02/05/17 at 10:12; Status DC Ergocalciferol (Vitamin D2) 50,000 unit WEEKLY PO Last administered on 13:23; Start 02/05/17 at 12:00 Vitamin B Complex (Folbic Tablet) 1 tab DAILY PO Last administered on 09:35; Start 02/05/17 at 12:00 Cyanocobalamin (Vitamin B-12) 1,000 mcg 1X ONCE IM Last administered on 13:24; Start 02/05/17 at 12:00; Stop 02/05/17 at 12:05; Status DC Info 1 ea CONT PRN PRN MC PER PROTOCOL; Start 02/05/17 at 12:45 Cefazolin Sodium/ Dextrose 50 ml @ 100 mls/hr 1X ONCE IV ; Start 02/05/17 at 13:00; Stop 02/05/17 at 13:29; Status DC Cefazolin Sodium/ Dextrose 50 ml @ 100 mls/hr 1X ONCE IV Last administered on 02/05/17 15:28; Start 02/05/17 at 15:30; Stop 02/05/17 at 15:59; Status DC Active Scripts Active Percocet 10-325 Mg Tablet (Oxycodone/Acetaminophen) 1 Each Tablet 2 Tab PO PRN Q6HRS PRN Percocet 10-325 Mg Tablet (Oxycodone/Acetaminophen) 1 Each Tablet 1 Tab PO Q6- 8HRS PRN Lasix (Furosemide) 80 Mg Tablet 1 Tab PO BID Reported Metoprolol Tartrate 50 Mg Tablet 1 Tab PO BID Ferrous Sulfate 325 Mg Tablet 1 Tab PO DAILY NITROGLYCERIN SubLingual (Nitroglycerin) 0.4 Mg Tab.subl 0.4 Mg SL PRN Q5MIN PRN Levemir Flextouch (Insulin Detemir) 100 Unit/1 Ml Insuln.pen 32 Unit SQ BID Novolog Flexpen (Insulin Aspart) 100 Unit/1 Ml Insuln.pen 20 Unit SQ TIDWMEALS Atorvastatin Calcium 20 Mg Tablet 20 Mg PO HS Potassium Chloride 10 Meq Capsule.er 10 Meq PO BID Aspir 81 (Aspirin) 81 Mg Tablet.dr 1 Tab PO DAILY Clopidogrel (Clopidogrel Bisulfate) 75 Mg Tablet 1 Tab PO DAILY Famotidine 20 Mg Tablet 20 Mg PO BID Vitals/I & O Vital Sign - Last 24 Hours 02/05/17 02/06/17 02/06/17 02/06/17 23:23 03:27 03:30 07:00 Temp 98.7 98.5 98.5 98.7 98.5 98.5 Pulse 58 87 60 Resp 24 20 22 20 B/P (MAP) 107/37 (60) 158/72 (100) 142/47 (78) Pulse Ox 94 96 99 O2 Delivery Nasal Cannula Nasal Cannula Nasal Cannula Nasal Cannula O2 Flow Rate 3.0 3.0 02/06/17 02/06/17 02/06/17 02/06/17 08:00 09:36 09:37 09:37 Pulse 60 60 B/P (MAP) 142/47 142/47 Pulse Ox 99 O2 Delivery Nasal Cannula Nasal Cannula O2 Flow Rate 2.0 3.0 02/06/17 02/06/17 02/06/17 02/06/17 11:00 15:00 15:46 16:50 Temp 98.9 98.7 98.9 98.7 Pulse 60 67 Resp 18 18 B/P (MAP) 109/34 (59) 139/43 (75) Pulse Ox 98 92 99 99 O2 Delivery Nasal Cannula Nasal Cannula Room Air Nasal Cannula O2 Flow Rate 3.0 3.0 3.0 02/06/17 02/06/17 19:30 20:58 Temp 99.3 99.3 Pulse 93 93 Resp 17 B/P (MAP) 141/51 (81) 141/51 Pulse Ox 97 O2 Delivery Nasal Cannula O2 Flow Rate 2.0 Intake and Output 02/05/17 02/05/17 02/06/17 15:00 23:00 07:00 Intake Total 850 ml 500 ml Output Total 300 ml 200 ml Balance 550 ml 300 ml LÓPEZ BARRIOS MD Feb 06, 2017 22:59
[2017-02-06 23:24] VITALS: BP 160/69
--- NOTE | 2017-02-06 23:28 | RAD ---
Chest x-ray INDICATION: Fever TECHNIQUE: Portable AP upright chest x-ray COMPARISON: None FINDINGS: Sternotomy changes noted. Left chest wall pacemaker with its leads projecting over the heart. Heart is moderately enlarged in size. Patient is rotated to the left. Right lung is clear. Evaluation of left lower lung zone is limited due to enlarged cardiac silhouette. Visualized bony thorax within normal limits. IMPRESSION: Moderate cardiomegaly. Evaluation of left lower lung zone Limited secondary to enlarged cardiac silhouette. Right lung and left upper lobe are clear. Electronically signed by: Fede Purvis DO (02/06/2017 11:24 PM) [facility]
[2017-02-07 03:25] VITALS: BP 141/54
[2017-02-07] MEDS: oxyCODONE/APAP 10/325 1 TAB TABLET PO PRN ×2 (05:00→10:57)
[2017-02-07 07:00] VITALS: BP 148/57
[2017-02-07] MEDS: INSULIN ASPART 300 UNITS/3 ML INSULN.PEN SQ SCH ×4 (08:00→12:00)
[2017-02-07] MEDS: INSULIN DETEMIR 300 UNITS/3 ML INSULN.PEN. SQ SCH (09:00)
[2017-02-07] MEDS: ASPIRIN ENTERIC COATED 81 MG TABLET.DR. PO SCH (10:00)
[2017-02-07] MEDS: CHOLECALCIFEROL (VITAMIN D3) 5,000 UNIT CAPSULE PO SCH (10:00)
[2017-02-07] MEDS: VITAMIN B12,B9,B6 COMPLEX 1 TABLET. PO SCH (10:00)
[2017-02-07] MEDS: FAMOTIDINE 20 MG TABLET. PO SCH (10:00)
[2017-02-07] MEDS: FERROUS SULFATE 325 MG TABLET. PO SCH (10:00)
[2017-02-07] MEDS: CLOPIDOGREL BISULFATE 75 MG TABLET PO SCH (10:00)
[2017-02-07] MEDS: CALCIUM CARBONATE 500 MG TABLET PO SCH (10:00)
[2017-02-07] MEDS: FUROSEMIDE 80 MG TABLET. PO SCH ×2 (10:00→14:55)
[2017-02-07] MEDS: LOSARTAN POTASSIUM 50 MG TABLET. PO SCH (10:01)
[2017-02-07] MEDS: METOPROLOL TART IMMED RELEASE 50 MG TABLET. PO SCH (10:02)
[2017-02-07] MEDS: ENOXAPARIN 40 MG/0.4 ML SYRINGE. SQ SCH (10:03)
[2017-02-07] MEDS: POTASSIUM CHLORIDE 10 MEQ TABLET.ER. PO SCH (10:03)
[2017-02-07 10:09] LABS: BILIRUBIN,URINE NEGATIVE (NEG); GLUCOSE,URINE NEGATIVE (NEG); NITRITE,URINE NEGATIVE (NEG); PROTEIN,URINE NEGATIVE (NEG-TRACE)
[2017-02-07 11:00] VITALS: BP 129/55
[2017-02-07 11:20] LABS: BACTERIA,URINE 0 /HPF (0-FEW); RBC,URINE 0 /HPF (0-2); SQUAMOUS EPITHELIAL CELL,UR MOD /LPF; WBC,URINE 0 /HPF (0-4)
--- NOTE | 2017-02-07 12:22 | PDOC ---
PROGRESS NOTES Chief Complaint Chief Complaint HTN emergency POA, resolved LAbile HTN DM 2 Obesity BMI 41 CAD history with CABG CHF, chronic stable sinus bradycardia fever last night not sepsis History of Present Illness History of Present Illness pacer placed today, difficulty technically, Dr. Crane would prefer to keep in hospital improved malignant HTN. . resting comfortably some pain cont on metoprolol bid w/u for fever last night did not show a source, pacer site looks good, cont current, blood cx pending, plans to SNU tomorrow Vitals Vitals Vital Signs Date Time Temp Pulse Resp B/P (MAP) Pulse Ox O2 Delivery O2 Flow Rate FiO2 02/07/17 11:59 94 Nasal Cannula 2.0 02/07/17 11:00 97.8 74 20 129/55 (79) 97.8 Physical Exam General: Alert, Oriented X3, Cooperative Heart: Normal S1, Normal S2 Lungs: Clear Abdomen: Normal bowel sounds, Soft Extremities: Normal pulses, Other (1+ edema) Skin: No rashes, No breakdown, No significant lesion Labs LABS Laboratory Tests Test 02/06/17 17:49 02/07/17 06:00 02/07/17 07:32 02/07/17 12:02 Glucose (Fingerstick) 102 mg/dL (70-99) 106 mg/dL (70-99) 159 mg/dL (70-99) Urine Collection Type Unknown Urine Color Yellow Urine Clarity Clear Urine pH 6.0 Urine Specific [place] 1.020 Urine Protein Negative mg/dL (NEG-TRACE) Urine Glucose (UA) Negative mg/dL (NEG) Urine Ketones (Stick) Negative mg/dL (NEG) Urine Blood Negative (NEG) Urine Nitrite Negative (NEG) Urine Bilirubin Negative (NEG) Urine Urobilinogen Dipstick 1.0 mg/dL (0.2 mg/dL) Urine Leukocyte Esterase Negative (NEG) Urine RBC 0 /HPF (0-2) Urine WBC 0 /HPF (0-4) Urine Squamous Epithelial Cells Mod /LPF Urine Bacteria 0 /HPF (0-FEW) Urine Mucus Mod /LPF Review of Systems Review of Systems weaeknss no n,.v.d' Assessment and Plan Assessmemt and Plan Problems Medical Problems: (1) Congestive heart failure Status: Acute (2) Coronary artery disease Status: Acute (3) Malignant hypertension Status: Acute Problems: Comment Review of Relevant I have reviewed the following items nolan (where applicable) has been applied. Labs Laboratory Tests Test 02/05/17 16:59 02/05/17 20:45 02/06/17 00:10 02/06/17 07:42 Glucose (Fingerstick) 145 mg/dL (70-99) 136 mg/dL (70-99) 126 mg/dL (70-99) Lactic Acid Level 0.8 mmol/L (0.4-2.0) Test 02/06/17 11:58 02/06/17 17:49 02/07/17 06:00 02/07/17 07:32 Glucose (Fingerstick) 185 mg/dL (70-99) 102 mg/dL (70-99) 106 mg/dL (70-99) Urine Collection Type Unknown Urine Color Yellow Urine Clarity Clear Urine pH 6.0 Urine Specific [place] 1.020 Urine Protein Negative mg/dL (NEG-TRACE) Urine Glucose (UA) Negative mg/dL (NEG) Urine Ketones (Stick) Negative mg/dL (NEG) Urine Blood Negative (NEG) Urine Nitrite Negative (NEG) Urine Bilirubin Negative (NEG) Urine Urobilinogen Dipstick 1.0 mg/dL (0.2 mg/dL) Urine Leukocyte Esterase Negative (NEG) Urine RBC 0 /HPF (0-2) Urine WBC 0 /HPF (0-4) Urine Squamous Epithelial Cells Mod /LPF Urine Bacteria 0 /HPF (0-FEW) Urine Mucus Mod /LPF Test 02/07/17 12:02 Glucose (Fingerstick) 159 mg/dL (70-99) Laboratory Tests Test 02/06/17 17:49 02/07/17 06:00 02/07/17 07:32 02/07/17 12:02 Glucose (Fingerstick) 102 mg/dL (70-99) 106 mg/dL (70-99) 159 mg/dL (70-99) Urine Collection Type Unknown Urine Color Yellow Urine Clarity Clear Urine pH 6.0 Urine Specific [place] 1.020 Urine Protein Negative mg/dL (NEG-TRACE) Urine Glucose (UA) Negative mg/dL (NEG) Urine Ketones (Stick) Negative mg/dL (NEG) Urine Blood Negative (NEG) Urine Nitrite Negative (NEG) Urine Bilirubin Negative (NEG) Urine Urobilinogen Dipstick 1.0 mg/dL (0.2 mg/dL) Urine Leukocyte Esterase Negative (NEG) Urine RBC 0 /HPF (0-2) Urine WBC 0 /HPF (0-4) Urine Squamous Epithelial Cells Mod /LPF Urine Bacteria 0 /HPF (0-FEW) Urine Mucus Mod /LPF Medications Current Medications Fentanyl Citrate (Fentanyl 2ml Vial) 50 mcg PRN Q15MIN PRN IV PAIN GREATER THAN 3/10 Last administered on 01/29/17 08:02; Start 01/28/17 at 12:30; Stop 01/29/17 at 12:29; Status DC Sodium Chloride 1,000 ml @ 125 mls/hr Q8H IV Last administered on 01/28/17 13 :05; Start 01/28/17 at 12:21; Stop 01/28/17 at 20:20; Status DC Ondansetron HCl (Zofran) 4 mg 1X ONCE IV Last administered on 01/28/17 13:05 ; Start 01/28/17 at 12:30; Stop 01/28/17 at 12:31; Status DC Labetalol HCl (Normodyne) 20 mg 1X ONCE IVP Last administered on 01/28/17 13: 07; Start 01/28/17 at 12:30; Stop 01/28/17 at 12:33; Status DC Nicardipine HCl 50 mg/Sodium Chloride 270 ml @ 0 mls/hr CONT PRN IV SEE I/O RECORD Last administered on 01/28/17 13:33; Start 01/28/17 at 13:15; Stop 01/30 at 10:59; Status DC Ondansetron HCl (Zofran) 4 mg PRN Q8HRS PRN IV NAUSEA/VOMITING; Start 01/28/17 at 13:30; Stop 01/28/17 at 14:14; Status DC Fentanyl Citrate (Fentanyl 2ml Vial) 50 mcg PRN Q2HR PRN IV PAIN Last administered on 01/28/17 20:06; Start 01/28/17 at 13:30; Stop 01/29/17 at 13:29 ; Status DC Sodium Chloride 1,000 ml @ 0 mls/hr Q0M IV ; Start 01/28/17 at 13:29; Stop 01/29/17 at 13:28; Status DC Acetaminophen (Tylenol) 650 mg PRN Q4HRS PRN PO FEVER; Start 01/28/17 at 13:30 ; Stop 01/29/17 at 13:29; Status DC Ondansetron HCl (Zofran) 4 mg PRN Q6HRS PRN IV NAUSEA/VOMITING; Start 01/28/17 at 14:15; Stop 01/29/17 at 14:14; Status DC Acetaminophen (Tylenol) 500 mg PRN Q6HRS PRN PO MILD PAIN / TEMP; Start at 14:15 Ibuprofen (Motrin) 600 mg PRN Q6HRS PRN PO INFLAMMATION; Start 01/28/17 at 14: 15; Stop 02/03/17 at 13:15; Status DC Diphenhydramine HCl (Benadryl) 25 mg PRN QHS PRN PO INSOMNIA Last administered on 02/06/17 20:58; Start 01/28/17 at 14:15 Aspirin (Ecotrin) 81 mg DAILY PO Last administered on 02/07/17 10:00; Start 01/29/17 at 09:00 Atorvastatin Calcium (Lipitor) 20 mg HS PO Last administered on 02/06/17 20: 58; Start 01/28/17 at 21:00 Clopidogrel Bisulfate (Plavix) 75 mg DAILY PO Last administered on 02/07/17 10:00; Start 01/29/17 at 09:00 Famotidine (Pepcid) 20 mg BID PO Last administered on 02/07/17 10:00; Start 01/28/17 at 21:00 Ferrous Sulfate (Feosol) 325 mg DAILY PO Last administered on 02/07/17 10:00 ; Start 01/29/17 at 09:00 Furosemide (Lasix) 80 mg BID92 PO Last administered on 02/07/17 10:00; Start 01/28/17 at 15:00 Insulin Aspart (NovoLOG) 20 units TIDWMEALS SQ Last administered on 02/06/17 18:01; Start 01/28/17 at 17:00 Insulin Detemir (Levemir) 32 units BID SQ Last administered on 02/06/17 09:44 ; Start 01/28/17 at 21:00 Metoprolol Tartrate (Lopressor) 25 mg BID PO ; Start 01/28/17 at 21:00; Stop at 21:00; Status DC Nitroglycerin (Nitrostat) 0.4 mg PRN Q5MIN PRN SL CHEST PAIN; Start 01/28/17 at 14:15 Oxycodone/ Acetaminophen (Percocet 10/325) 1 tab PRN QID PRN PO MODERATE PAIN Last administered on 02/04/17 07:40; Start 01/28/17 at 14:15 Oxycodone/ Acetaminophen (Percocet 10/325) 2 tab PRN Q6HRS PRN PO SEVERE PAIN Last administered on 02/07/17 10:57; Start 01/28/17 at 14:15 Potassium Chloride (Klor-Con) 10 meq BIDWMEALS PO Last administered on 10:03; Start 01/28/17 at 17:00 Insulin Aspart (NovoLOG) 0-9 UNITS TIDWMEALS SQ Last administered on 13:18; Start 01/28/17 at 17:00 Dextrose (Dextrose 50%-Water Syringe) 12.5 gm PRN Q15MIN PRN IV SEE COMMENTS; Start 01/28/17 at 15:15 Losartan Potassium (Cozaar) 100 mg DAILY PO Last administered on 02/07/17 10: 01; Start 01/28/17 at 16:00 Metoprolol Tartrate (Lopressor) 50 mg BID PO Last administered on 01/30/17 08: 44; Start 01/28/17 at 21:00; Stop 01/30/17 at 15:27; Status DC Ondansetron HCl (Zofran) 4 mg PRN Q6HRS PRN IV NAUSEA/VOMITING Last administered on 01/29/17 17:58; Start 01/29/17 at 17:45 Metoprolol Tartrate (Lopressor) 50 mg DAILY PO Last administered on 02/07/17 10:02; Start 01/31/17 at 09:00 Metoprolol Tartrate (Lopressor) 25 mg QHS PO Last administered on 02/06/17 20 :58; Start 01/30/17 at 21:00 Labetalol HCl (Normodyne) 10 mg PRN Q2HR PRN IVP HYPERTENSION, SEE COMMENTS; Start 01/31/17 at 07:45 Enoxaparin Sodium (Lovenox 40mg Syringe) 40 mg Q12HR SQ Last administered on 10:03; Start 02/03/17 at 14:00 Vitamin D (Vitamin D3) 5,000 unit DAILY PO Last administered on 02/07/17 10: 00; Start 02/04/17 at 11:00 Calcium Carbonate/ Glycine (Oscal) 500 mg BID PO Last administered on 10:00; Start 02/04/17 at 11:00 Cefazolin Sodium/ Dextrose 50 ml @ 100 mls/hr 1X ONCE IV Last administered on 02/05/17 09:37; Start 02/05/17 at 06:00; Stop 02/05/17 at 06:29; Status DC Lidocaine/ Epinephrine (Xylocaine 2%-Epi 1:100,000) 20 ml STK-MED ONCE .ROUTE ; Start 02/05/17 at 07:37; Stop 02/05/17 at 07:38; Status DC Bacitracin 02802 unit/Sodium Chloride 250 ml @ 0 mls/hr 1X ONCE IRR Last administered on 02/05/17 10:23; Start 02/05/17 at 08:30; Stop 02/05/17 at 08 :31; Status DC Fentanyl Citrate (Fentanyl 2ml Vial) 100 mcg STK-MED ONCE .ROUTE ; Start at 09:10; Stop 02/05/17 at 09:11; Status DC Midazolam HCl (Versed) 2 mg STK-MED ONCE .ROUTE ; Start 02/05/17 at 09:10; Stop 02/05/17 at 09:11; Status DC Midazolam HCl (Versed) 2 mg 1X ONCE IV Last administered on 02/05/17 10:25; Start 02/05/17 at 09:15; Stop 02/05/17 at 09:33; Status DC Fentanyl Citrate (Fentanyl 2ml Vial) 100 mcg 1X ONCE IV Last administered on 02/05/17 10:25; Start 02/05/17 at 09:15; Stop 02/05/17 at 09:33; Status DC Lidocaine/ Epinephrine (Xylocaine 2%-Epi 1:100,000) 40 ml 1X ONCE IJ Last administered on 02/05/17 10:24; Start 02/05/17 at 09:15; Stop 02/05/17 at 09 :33; Status DC Cefazolin Sodium/ Dextrose 50 ml @ As Directed STK-MED ONCE IV ; Start at 09:20; Stop 02/05/17 at 09:21; Status DC Fentanyl Citrate (Fentanyl 2ml Vial) 100 mcg STK-MED ONCE .ROUTE ; Start at 10:04; Stop 02/05/17 at 10:05; Status DC Midazolam HCl (Versed) 2 mg STK-MED ONCE .ROUTE ; Start 02/05/17 at 10:04; Stop 02/05/17 at 10:05; Status DC Fentanyl Citrate (Fentanyl 2ml Vial) 100 mcg STK-MED ONCE .ROUTE ; Start at 10:11; Stop 02/05/17 at 10:12; Status DC Midazolam HCl (Versed) 2 mg STK-MED ONCE .ROUTE ; Start 02/05/17 at 10:11; Stop 02/05/17 at 10:12; Status DC Ergocalciferol (Vitamin D2) 50,000 unit WEEKLY PO Last administered on 13:23; Start 02/05/17 at 12:00 Vitamin B Complex (Folbic Tablet) 1 tab DAILY PO Last administered on 10:00; Start 02/05/17 at 12:00 Cyanocobalamin (Vitamin B-12) 1,000 mcg 1X ONCE IM Last administered on 13:24; Start 02/05/17 at 12:00; Stop 02/05/17 at 12:05; Status DC Info 1 ea CONT PRN PRN MC PER PROTOCOL; Start 02/05/17 at 12:45 Cefazolin Sodium/ Dextrose 50 ml @ 100 mls/hr 1X ONCE IV ; Start 02/05/17 at 13:00; Stop 02/05/17 at 13:29; Status DC Cefazolin Sodium/ Dextrose 50 ml @ 100 mls/hr 1X ONCE IV Last administered on 02/05/17 15:28; Start 02/05/17 at 15:30; Stop 02/05/17 at 15:59; Status DC Active Scripts Active Percocet 10-325 Mg Tablet (Oxycodone/Acetaminophen) 1 Each Tablet 2 Tab PO PRN Q6HRS PRN Percocet 10-325 Mg Tablet (Oxycodone/Acetaminophen) 1 Each Tablet 1 Tab PO Q6- 8HRS PRN Lasix (Furosemide) 80 Mg Tablet 1 Tab PO BID Reported Metoprolol Tartrate 50 Mg Tablet 1 Tab PO BID Ferrous Sulfate 325 Mg Tablet 1 Tab PO DAILY NITROGLYCERIN SubLingual (Nitroglycerin) 0.4 Mg Tab.subl 0.4 Mg SL PRN Q5MIN PRN Levemir Flextouch (Insulin Detemir) 100 Unit/1 Ml Insuln.pen 32 Unit SQ BID Novolog Flexpen (Insulin Aspart) 100 Unit/1 Ml Insuln.pen 20 Unit SQ TIDWMEALS Atorvastatin Calcium 20 Mg Tablet 20 Mg PO HS Potassium Chloride 10 Meq Capsule.er 10 Meq PO BID Aspir 81 (Aspirin) 81 Mg Tablet.dr 1 Tab PO DAILY Clopidogrel (Clopidogrel Bisulfate) 75 Mg Tablet 1 Tab PO DAILY Famotidine 20 Mg Tablet 20 Mg PO BID Vitals/I & O Vital Sign - Last 24 Hours 02/06/17 02/06/17 02/06/17 02/06/17 15:00 15:46 19:30 20:00 Temp 98.7 99.3 98.7 99.3 Pulse 67 93 Resp 18 17 B/P (MAP) 139/43 (75) 141/51 (81) Pulse Ox 92 99 97 O2 Delivery Nasal Cannula Room Air Nasal Cannula Nasal Cannula O2 Flow Rate 3.0 2.0 2.0 02/06/17 02/06/17 02/07/17 02/07/17 20:58 23:24 03:25 07:00 Temp 101.8 98.2 97.9 101.8 98.2 97.9 Pulse 93 70 60 60 Resp 19 18 20 B/P (MAP) 141/51 160/69 (99) 141/54 (83) 148/57 (87) Pulse Ox 96 98 98 O2 Delivery Nasal Cannula Nasal Cannula Nasal Cannula O2 Flow Rate 2.0 2.0 2.0 02/07/17 02/07/17 02/07/17 02/07/17 10:01 10:02 10:57 11:00 Temp 97.8 97.8 Pulse 60 78 74 Resp 20 B/P (MAP) 148/57 148/57 129/55 (79) Pulse Ox 98 94 O2 Delivery Nasal Cannula Room Air O2 Flow Rate 2.0 02/07/17 11:59 Pulse Ox 94 O2 Delivery Nasal Cannula O2 Flow Rate 2.0 Intake and Output 02/06/17 02/06/17 02/07/17 15:00 23:00 07:00 Intake Total 600 ml 240 ml Output Total 1650 ml 300 ml Balance -1050 ml -60 ml LÓPEZ BARRIOS MD Feb 07, 2017 12:22
[2017-02-07] MEDS ORDERED: oxyCODONE IR 5 MG TABLET PO PRN (12:45)
--- NOTE | 2017-02-07 13:53 | PDOC ---
PROGRESS NOTES Assessment Assessment Weakness. Fall. HTN DM CAD, s/p CABG Bradycardia. CHF VIOLETTA. Narcotic use. Vit D deficiency. No evidence of acute CVA this time. RECOMMENDATIONS/PLAN: Treat medical diseases. Vit D 5000 units daily, FU with PCP. Calcium 500 mg bid, FU with PCP. Cardiology on team. Pacemaker placement performed by Cardiology on 02/05/17. OT/PT. Past Medical History Cardiovascular: HTN Pulmonary: No pertinent hx GI: No pertinent hx Heme/Onc: No pertinent hx Hepatobiliary: No pertinent hx Psych: No pertinent hx Rheumatologic: No pertinent hx Endocrine: Diabetes Past Surgical History Appendectomy, Total knee replacement Family History Diabetes Social History Smoke: No ALCOHOL: none Drugs: None ALLERGY: Reviewed. MEDICATIONS: Refer to MAR REVIEW OF SYSTEMS: Constitutional: No malnutrition, weight loss, cachexia. Head: No traumatic brain or head injury. Skin: No edema, or rash. Ear: No infection. Eyes: No vision loss, or diplopia. Nose: No bleeding or purulent discharges. Hearing: No hearing decrease. Neck: No injury. Breast: No history of cancer, masses, or discharges. Cardiac: CAD, CHF, HTN. Pulmonary: No COPD.. GI: No GI Ulcer, GI bleeding Urinary/genital: UTI. Endocrine: Diabetes Mellitus, obesity. Skeletomuscular: No muscular atrophy Neurological: see HP. Psychiatric: Denies drug use/abuse. Otherwise, not [id number] review of systems. PHYSICAL EXAMINATION: General appearance in no acute distress. HEENT: Normocephalic and nontraumatic. Eyes, nose, ears, and throat are unremarkable. Neck is supple. No lymphadenopathy. No bruits are heard over the carotid artery. No Crepitus. Cardiovascular: S1, S2, regular rate and rhythm. Pulmonary: Clear to auscultation bilaterally. Abdomen: Bowel sounds are positive. Abdomen is soft, nontender, and nondistended. Extremities: No rash, lesions, or edema. No restriction of range of motion NEUROLOGICAL EXAMINATION: Awake. Oriented to time, place and person. PERRL. EOMI. CN: no focal findings. Muscle tone: within normal. Muscle strength: 4+ DTR: 1+ Plantar reflex: Flexor response bilaterally Gait: at her baseline normal walking with a cane. Sensory exam: no abnormal findings. No cerebellar signs elicited. F-T-N test fine.. Objective Objective Vital Signs Date Time Temp Pulse Resp B/P (MAP) Pulse Ox O2 Delivery O2 Flow Rate FiO2 02/07/17 11:59 94 Nasal Cannula 2.0 02/07/17 11:00 97.8 74 20 129/55 (79) 97.8 Intake and Output 02/07/17 07:00 Intake Total 840 ml Output Total 1950 ml Balance -1110 ml Intake Oral 840 ml Output Urine Total 1950 ml Vitals Signs Vitals VS - Last 72 Hours, by Label Date Time Temp Pulse Resp B/P (MAP) Pulse Ox O2 Delivery O2 Flow Rate FiO2 02/07/17 11:59 94 Nasal Cannula 2.0 02/07/17 11:00 97.8 74 20 129/55 (79) 94 Room Air 97.8 02/07/17 10:57 98 Nasal Cannula 2.0 02/07/17 10:02 78 148/57 02/07/17 10:01 60 148/57 02/07/17 07:00 97.9 60 20 148/57 (87) 98 Nasal Cannula 2.0 97.9 02/07/17 03:25 98.2 60 18 141/54 (83) 98 Nasal Cannula 2.0 98.2 02/06/17 23:24 101.8 70 19 160/69 (99) 96 Nasal Cannula 2.0 101.8 02/06/17 20:58 93 141/51 02/06/17 20:00 Nasal Cannula 2.0 02/06/17 19:30 99.3 93 17 141/51 (81) 97 Nasal Cannula 2.0 99.3 02/06/17 15:46 99 Room Air 02/06/17 15:00 98.7 67 18 139/43 (75) 92 Nasal Cannula 3.0 98.7 02/06/17 11:00 98.9 60 18 109/34 (59) 98 Nasal Cannula 3.0 98.9 02/06/17 09:37 60 142/47 02/06/17 09:37 60 142/47 02/06/17 09:36 99 Nasal Cannula 3.0 02/06/17 08:00 Nasal Cannula 2.0 02/06/17 07:00 98.5 60 20 142/47 (78) 99 Nasal Cannula 3.0 98.5 Laboratory Laboratory Laboratory Tests Test 02/06/17 17:49 02/07/17 06:00 02/07/17 07:32 02/07/17 12:02 Glucose (Fingerstick) 102 mg/dL (70-99) 106 mg/dL (70-99) 159 mg/dL (70-99) Urine Collection Type Unknown Urine Color Yellow Urine Clarity Clear Urine pH 6.0 Urine Specific [place] 1.020 Urine Protein Negative mg/dL (NEG-TRACE) Urine Glucose (UA) Negative mg/dL (NEG) Urine Ketones (Stick) Negative mg/dL (NEG) Urine Blood Negative (NEG) Urine Nitrite Negative (NEG) Urine Bilirubin Negative (NEG) Urine Urobilinogen Dipstick 1.0 mg/dL (0.2 mg/dL) Urine Leukocyte Esterase Negative (NEG) Urine RBC 0 /HPF (0-2) Urine WBC 0 /HPF (0-4) Urine Squamous Epithelial Cells Mod /LPF Urine Bacteria 0 /HPF (0-FEW) Urine Mucus Mod /LPF Medication Medications Current Medications Oxycodone HCl (Roxicodone) 20 mg PRN Q6HRS PRN PO PAIN; Start 02/07/17 at 12: 45 Comment Review of Relevant I have reviewed the following items nolan (where applicable) has been applied. YOLANDA PICKENS MD Feb 07, 2017 13:53
--- NOTE | 2017-02-07 15:28 | PDOC ---
PROGRESS NOTES Subjective Subjective No new complaints today. Patient being transferred to residential. Objective Objective Vital Signs Date Time Temp Pulse Resp B/P (MAP) Pulse Ox O2 Delivery O2 Flow Rate FiO2 02/07/17 11:59 94 Nasal Cannula 2.0 02/07/17 11:00 97.8 74 20 129/55 (79) 97.8 Physical Exam Physical Exam No significant changes in cardiac exam Assessment Assessment The patient is compensated cardiac-beck. The pacemaker appears to be functioning normally. Agree with transfer to residential. Problems Medical Problems: (1) Congestive heart failure Status: Acute (2) Coronary artery disease Status: Acute (3) Malignant hypertension Status: Acute Comment Review of Relevant I have reviewed the following items nolan (where applicable) has been applied. Labs Laboratory Tests Test 02/05/17 16:59 02/05/17 20:45 02/06/17 00:10 02/06/17 07:42 Glucose (Fingerstick) 145 mg/dL (70-99) 136 mg/dL (70-99) 126 mg/dL (70-99) Lactic Acid Level 0.8 mmol/L (0.4-2.0) Test 02/06/17 11:58 02/06/17 17:49 02/07/17 06:00 02/07/17 07:32 Glucose (Fingerstick) 185 mg/dL (70-99) 102 mg/dL (70-99) 106 mg/dL (70-99) Urine Collection Type Unknown Urine Color Yellow Urine Clarity Clear Urine pH 6.0 Urine Specific [place] 1.020 Urine Protein Negative mg/dL (NEG-TRACE) Urine Glucose (UA) Negative mg/dL (NEG) Urine Ketones (Stick) Negative mg/dL (NEG) Urine Blood Negative (NEG) Urine Nitrite Negative (NEG) Urine Bilirubin Negative (NEG) Urine Urobilinogen Dipstick 1.0 mg/dL (0.2 mg/dL) Urine Leukocyte Esterase Negative (NEG) Urine RBC 0 /HPF (0-2) Urine WBC 0 /HPF (0-4) Urine Squamous Epithelial Cells Mod /LPF Urine Bacteria 0 /HPF (0-FEW) Urine Mucus Mod /LPF Test 02/07/17 12:02 Glucose (Fingerstick) 159 mg/dL (70-99) Laboratory Tests Test 02/06/17 17:49 02/07/17 06:00 02/07/17 07:32 02/07/17 12:02 Glucose (Fingerstick) 102 mg/dL (70-99) 106 mg/dL (70-99) 159 mg/dL (70-99) Urine Collection Type Unknown Urine Color Yellow Urine Clarity Clear Urine pH 6.0 Urine Specific [place] 1.020 Urine Protein Negative mg/dL (NEG-TRACE) Urine Glucose (UA) Negative mg/dL (NEG) Urine Ketones (Stick) Negative mg/dL (NEG) Urine Blood Negative (NEG) Urine Nitrite Negative (NEG) Urine Bilirubin Negative (NEG) Urine Urobilinogen Dipstick 1.0 mg/dL (0.2 mg/dL) Urine Leukocyte Esterase Negative (NEG) Urine RBC 0 /HPF (0-2) Urine WBC 0 /HPF (0-4) Urine Squamous Epithelial Cells Mod /LPF Urine Bacteria 0 /HPF (0-FEW) Urine Mucus Mod /LPF Medications Current Medications Fentanyl Citrate (Fentanyl 2ml Vial) 50 mcg PRN Q15MIN PRN IV PAIN GREATER THAN 3/10 Last administered on 01/29/17 08:02; Start 01/28/17 at 12:30; Stop 01/29/17 at 12:29; Status DC Sodium Chloride 1,000 ml @ 125 mls/hr Q8H IV Last administered on 01/28/17 13 :05; Start 01/28/17 at 12:21; Stop 01/28/17 at 20:20; Status DC Ondansetron HCl (Zofran) 4 mg 1X ONCE IV Last administered on 01/28/17 13:05 ; Start 01/28/17 at 12:30; Stop 01/28/17 at 12:31; Status DC Labetalol HCl (Normodyne) 20 mg 1X ONCE IVP Last administered on 01/28/17 13: 07; Start 01/28/17 at 12:30; Stop 01/28/17 at 12:33; Status DC Nicardipine HCl 50 mg/Sodium Chloride 270 ml @ 0 mls/hr CONT PRN IV SEE I/O RECORD Last administered on 01/28/17 13:33; Start 01/28/17 at 13:15; Stop 01/30 at 10:59; Status DC Ondansetron HCl (Zofran) 4 mg PRN Q8HRS PRN IV NAUSEA/VOMITING; Start 01/28/17 at 13:30; Stop 01/28/17 at 14:14; Status DC Fentanyl Citrate (Fentanyl 2ml Vial) 50 mcg PRN Q2HR PRN IV PAIN Last administered on 01/28/17 20:06; Start 01/28/17 at 13:30; Stop 01/29/17 at 13:29 ; Status DC Sodium Chloride 1,000 ml @ 0 mls/hr Q0M IV ; Start 01/28/17 at 13:29; Stop 01/29/17 at 13:28; Status DC Acetaminophen (Tylenol) 650 mg PRN Q4HRS PRN PO FEVER; Start 01/28/17 at 13:30 ; Stop 01/29/17 at 13:29; Status DC Ondansetron HCl (Zofran) 4 mg PRN Q6HRS PRN IV NAUSEA/VOMITING; Start 01/28/17 at 14:15; Stop 01/29/17 at 14:14; Status DC Acetaminophen (Tylenol) 500 mg PRN Q6HRS PRN PO MILD PAIN / TEMP; Start at 14:15 Ibuprofen (Motrin) 600 mg PRN Q6HRS PRN PO INFLAMMATION; Start 01/28/17 at 14: 15; Stop 02/03/17 at 13:15; Status DC Diphenhydramine HCl (Benadryl) 25 mg PRN QHS PRN PO INSOMNIA Last administered on 02/06/17 20:58; Start 01/28/17 at 14:15 Aspirin (Ecotrin) 81 mg DAILY PO Last administered on 02/07/17 10:00; Start 01/29/17 at 09:00 Atorvastatin Calcium (Lipitor) 20 mg HS PO Last administered on 02/06/17 20: 58; Start 01/28/17 at 21:00 Clopidogrel Bisulfate (Plavix) 75 mg DAILY PO Last administered on 02/07/17 10:00; Start 01/29/17 at 09:00 Famotidine (Pepcid) 20 mg BID PO Last administered on 02/07/17 10:00; Start 01/28/17 at 21:00 Ferrous Sulfate (Feosol) 325 mg DAILY PO Last administered on 02/07/17 10:00 ; Start 01/29/17 at 09:00 Furosemide (Lasix) 80 mg BID92 PO Last administered on 02/07/17 14:55; Start 01/28/17 at 15:00 Insulin Aspart (NovoLOG) 20 units TIDWMEALS SQ Last administered on 02/06/17 18:01; Start 01/28/17 at 17:00 Insulin Detemir (Levemir) 32 units BID SQ Last administered on 02/06/17 09:44 ; Start 01/28/17 at 21:00 Metoprolol Tartrate (Lopressor) 25 mg BID PO ; Start 01/28/17 at 21:00; Stop at 21:00; Status DC Nitroglycerin (Nitrostat) 0.4 mg PRN Q5MIN PRN SL CHEST PAIN; Start 01/28/17 at 14:15 Oxycodone/ Acetaminophen (Percocet 10/325) 1 tab PRN QID PRN PO MODERATE PAIN Last administered on 02/04/17 07:40; Start 01/28/17 at 14:15 Oxycodone/ Acetaminophen (Percocet 10/325) 2 tab PRN Q6HRS PRN PO SEVERE PAIN Last administered on 02/07/17 10:57; Start 01/28/17 at 14:15 Potassium Chloride (Klor-Con) 10 meq BIDWMEALS PO Last administered on 10:03; Start 01/28/17 at 17:00 Insulin Aspart (NovoLOG) 0-9 UNITS TIDWMEALS SQ Last administered on 13:18; Start 01/28/17 at 17:00 Dextrose (Dextrose 50%-Water Syringe) 12.5 gm PRN Q15MIN PRN IV SEE COMMENTS; Start 01/28/17 at 15:15 Losartan Potassium (Cozaar) 100 mg DAILY PO Last administered on 02/07/17 10: 01; Start 01/28/17 at 16:00 Metoprolol Tartrate (Lopressor) 50 mg BID PO Last administered on 01/30/17 08: 44; Start 01/28/17 at 21:00; Stop 01/30/17 at 15:27; Status DC Ondansetron HCl (Zofran) 4 mg PRN Q6HRS PRN IV NAUSEA/VOMITING Last administered on 01/29/17 17:58; Start 01/29/17 at 17:45 Metoprolol Tartrate (Lopressor) 50 mg DAILY PO Last administered on 02/07/17 10:02; Start 01/31/17 at 09:00 Metoprolol Tartrate (Lopressor) 25 mg QHS PO Last administered on 02/06/17 20 :58; Start 01/30/17 at 21:00 Labetalol HCl (Normodyne) 10 mg PRN Q2HR PRN IVP HYPERTENSION, SEE COMMENTS; Start 01/31/17 at 07:45 Enoxaparin Sodium (Lovenox 40mg Syringe) 40 mg Q12HR SQ Last administered on 10:03; Start 02/03/17 at 14:00 Vitamin D (Vitamin D3) 5,000 unit DAILY PO Last administered on 02/07/17 10: 00; Start 02/04/17 at 11:00 Calcium Carbonate/ Glycine (Oscal) 500 mg BID PO Last administered on 10:00; Start 02/04/17 at 11:00 Cefazolin Sodium/ Dextrose 50 ml @ 100 mls/hr 1X ONCE IV Last administered on 02/05/17 09:37; Start 02/05/17 at 06:00; Stop 02/05/17 at 06:29; Status DC Lidocaine/ Epinephrine (Xylocaine 2%-Epi 1:100,000) 20 ml STK-MED ONCE .ROUTE ; Start 02/05/17 at 07:37; Stop 02/05/17 at 07:38; Status DC Bacitracin 68688 unit/Sodium Chloride 250 ml @ 0 mls/hr 1X ONCE IRR Last administered on 02/05/17 10:23; Start 02/05/17 at 08:30; Stop 02/05/17 at 08 :31; Status DC Fentanyl Citrate (Fentanyl 2ml Vial) 100 mcg STK-MED ONCE .ROUTE ; Start at 09:10; Stop 02/05/17 at 09:11; Status DC Midazolam HCl (Versed) 2 mg STK-MED ONCE .ROUTE ; Start 02/05/17 at 09:10; Stop 02/05/17 at 09:11; Status DC Midazolam HCl (Versed) 2 mg 1X ONCE IV Last administered on 02/05/17 10:25; Start 02/05/17 at 09:15; Stop 02/05/17 at 09:33; Status DC Fentanyl Citrate (Fentanyl 2ml Vial) 100 mcg 1X ONCE IV Last administered on 02/05/17 10:25; Start 02/05/17 at 09:15; Stop 02/05/17 at 09:33; Status DC Lidocaine/ Epinephrine (Xylocaine 2%-Epi 1:100,000) 40 ml 1X ONCE IJ Last administered on 02/05/17 10:24; Start 02/05/17 at 09:15; Stop 02/05/17 at 09 :33; Status DC Cefazolin Sodium/ Dextrose 50 ml @ As Directed STK-MED ONCE IV ; Start at 09:20; Stop 02/05/17 at 09:21; Status DC Fentanyl Citrate (Fentanyl 2ml Vial) 100 mcg STK-MED ONCE .ROUTE ; Start at 10:04; Stop 02/05/17 at 10:05; Status DC Midazolam HCl (Versed) 2 mg STK-MED ONCE .ROUTE ; Start 02/05/17 at 10:04; Stop 02/05/17 at 10:05; Status DC Fentanyl Citrate (Fentanyl 2ml Vial) 100 mcg STK-MED ONCE .ROUTE ; Start at 10:11; Stop 02/05/17 at 10:12; Status DC Midazolam HCl (Versed) 2 mg STK-MED ONCE .ROUTE ; Start 02/05/17 at 10:11; Stop 02/05/17 at 10:12; Status DC Ergocalciferol (Vitamin D2) 50,000 unit WEEKLY PO Last administered on 13:23; Start 02/05/17 at 12:00 Vitamin B Complex (Folbic Tablet) 1 tab DAILY PO Last administered on 10:00; Start 02/05/17 at 12:00 Cyanocobalamin (Vitamin B-12) 1,000 mcg 1X ONCE IM Last administered on 13:24; Start 02/05/17 at 12:00; Stop 02/05/17 at 12:05; Status DC Info 1 ea CONT PRN PRN MC PER PROTOCOL; Start 02/05/17 at 12:45 Cefazolin Sodium/ Dextrose 50 ml @ 100 mls/hr 1X ONCE IV ; Start 02/05/17 at 13:00; Stop 02/05/17 at 13:29; Status DC Cefazolin Sodium/ Dextrose 50 ml @ 100 mls/hr 1X ONCE IV Last administered on 02/05/17t 15:28; Start 02/05/17 at 15:30; Stop 02/05/17 at 15:59; Status DC Oxycodone HCl (Roxicodone) 20 mg PRN Q6HRS PRN PO PAIN; Start 02/07/17 at 12: 45 Active Scripts Active Percocet 10-325 Mg Tablet (Oxycodone/Acetaminophen) 1 Each Tablet 2 Tab PO PRN Q6HRS PRN Percocet 10-325 Mg Tablet (Oxycodone/Acetaminophen) 1 Each Tablet 1 Tab PO Q6- 8HRS PRN Lasix (Furosemide) 80 Mg Tablet 1 Tab PO BID Reported Metoprolol Tartrate 50 Mg Tablet 1 Tab PO BID Ferrous Sulfate 325 Mg Tablet 1 Tab PO DAILY NITROGLYCERIN SubLingual (Nitroglycerin) 0.4 Mg Tab.subl 0.4 Mg SL PRN Q5MIN PRN Levemir Flextouch (Insulin Detemir) 100 Unit/1 Ml Insuln.pen 32 Unit SQ BID Novolog Flexpen (Insulin Aspart) 100 Unit/1 Ml Insuln.pen 20 Unit SQ TIDWMEALS Atorvastatin Calcium 20 Mg Tablet 20 Mg PO HS Potassium Chloride 10 Meq Capsule.er 10 Meq PO BID Aspir 81 (Aspirin) 81 Mg Tablet.dr 1 Tab PO DAILY Clopidogrel (Clopidogrel Bisulfate) 75 Mg Tablet 1 Tab PO DAILY Famotidine 20 Mg Tablet 20 Mg PO BID Vitals/I & O Vital Sign - Last 24 Hours 02/06/17 02/06/17 02/06/17 02/06/17 15:46 19:30 20:00 20:58 Temp 99.3 99.3 Pulse 93 93 Resp 17 B/P (MAP) 141/51 (81) 141/51 Pulse Ox 99 97 O2 Delivery Room Air Nasal Cannula Nasal Cannula O2 Flow Rate 2.0 2.0 02/06/17 02/07/17 02/07/17 02/07/17 23:24 03:25 07:00 10:01 Temp 101.8 98.2 97.9 101.8 98.2 97.9 Pulse 70 60 60 60 Resp 19 18 20 B/P (MAP) 160/69 (99) 141/54 (83) 148/57 (87) 148/57 Pulse Ox 96 98 98 O2 Delivery Nasal Cannula Nasal Cannula Nasal Cannula O2 Flow Rate 2.0 2.0 2.0 02/07/17 02/07/17 02/07/17 02/07/17 10:02 10:57 11:00 11:59 Temp 97.8 97.8 Pulse 78 74 Resp 20 B/P (MAP) 148/57 129/55 (79) Pulse Ox 98 94 94 O2 Delivery Nasal Cannula Room Air Nasal Cannula O2 Flow Rate 2.0 2.0 LIZBET LINDSAY MD Feb 07, 2017 15:27
[2017-02-07 15:57] VITALS: BP 132/63
== END 2017-02-07 16:15 | DRG 242 ==
LOC: ER 11:39 → 1 WEST ICU 13:16 → 2 SOUTH 01-29 14:15
PROVIDERS: ADMIT Internal Medicine; ATTEND Internal Medicine
PROC: 0JH606Z Insertion of Pacemaker, Dual Chamber into Chest Subcutaneous Tissue and Fascia, Open Approach (ICD-10-PCS; principal; 2017-02-05)
PROC: 02H63JZ Insertion of Pacemaker Lead into Right Atrium, Percutaneous Approach (ICD-10-PCS; 2017-02-05)
PROC: 02HK3JZ Insertion of Pacemaker Lead into Right Ventricle, Percutaneous Approach (ICD-10-PCS; 2017-02-05)
DX: R00.1 Bradycardia, unspecified (principal); J96.20 Acute and chronic respiratory failure, unspecified whether with hypoxia or hypercapnia; E11.22 Type 2 diabetes mellitus with diabetic chronic kidney disease; I16.1 Hypertensive emergency; Z68.41 Body mass index [BMI] 40.0-44.9, adult; I13.0 Hypertensive heart and chronic kidney disease with heart failure and stage 1 through stage 4 chronic kidney disease, or unspecified chronic kidney disease; E11.42 Type 2 diabetes mellitus with diabetic polyneuropathy; I50.9 Heart failure, unspecified; N18.2 Chronic kidney disease, stage 2 (mild); E55.9 Vitamin D deficiency, unspecified; E66.9 Obesity, unspecified; G47.33 Obstructive sleep apnea (adult) (pediatric); I25.118 Atherosclerotic heart disease of native coronary artery with other forms of angina pectoris; Z96.652 Presence of left artificial knee joint; R27.8 Other lack of coordination; Z79.4 Long term (current) use of insulin; Z83.3 Family history of diabetes mellitus; Z90.710 Acquired absence of both cervix and uterus; Z95.1 Presence of aortocoronary bypass graft; Z90.49 Acquired absence of other specified parts of digestive tract; I25.2 Old myocardial infarction
CPT/HCPCS: 33217; 36415; 70450; 70551; 71010; 71020; 80048; 80053; 81001; 82306; 82553; 82607; 82962; 83036; 83605; 83690; 83735; 83880; 84443; 84484; 85025; 85610; 87040; 87641; 93005; 96365; 96366; 96375; 96376; 99152; 99153; C1785; C1898; J0690; J1650; J1815; J2250; J2405; J3010; J3420; J3490; J7030; J7050; Q0163; 97110; 97116; 97530; 97535; 99291-25

== ENCOUNTER 2017-03-13 09:58 | Inpatient (IN) | payer OTHER ==
[~2017-03-13] VITALS: Ht 162.6 cm; Wt 109.0 kg
[~2017-03-13 09:58] MED LIST changes: +ERGO500027 PO; +LOSA100T6 PO; +METO50TA6 PO; +VITA1TAB19 PO
--- NOTE | 2017-03-13 10:28 | RAD ---
Single view of the Chest 03/13/2017 12:03 PM Indication: chest pain Comparison: Chest radiograph February 06, 2017 Findings: The heart is enlarged. There is mild central vascular congestion. The appearance is similar to prior exam. Prior median sternotomy noted. Aortic calcification noted. There is a dual-lead pacemaking device from a left subclavian approach, grossly stable. No pneumothorax. Definitive effusion is not seen, although the heart obscures the left lung base. No new osseous findings are seen. Impression: Stable appearance of the chest including cardiomegaly and central vascular congestion.
[2017-03-13] MEDS ORDERED: ONDANSETRON PF 4 MG/2 ML VIAL. IV ONE (10:30)
[2017-03-13 10:54] LABS: BASO # 0.1 x10^3/uL (0.0-0.2); BASO % 1 % (0-3); EOS % 0 % (0-3); HEMATOCRIT 37.6 % (36.0-47.0); LYMPH % 12 % (24-48); MEAN CORPUSCULAR HEMOGLOBIN 27 pg (25-35); MEAN CORPUSCULAR HGB CONC 32 g/dL (31-37); MEAN CORPUSCULAR VOLUME 84 fL (79-100); MONO % 6 % (0-9); NEUT % 81 % (31-73); PLATELET COUNT 373 x10^3/uL (140-400); RED CELL DISTRIBUTION WIDTH 16.6 % (11.5-14.5); WHITE BLOOD COUNT 7.9 x10^3/uL (4.0-11.0)
[2017-03-13 11:02] LABS: INR 1.1 (0.8-1.1); PROTHROMBIN TIME PATIENT 13.5 SEC (11.7-14.0)
[2017-03-13 11:06] LABS: CALCIUM 9.4 mg/dL (8.5-10.1); CREATININE 0.7 mg/dL (0.6-1.0); GFR 102.3; POTASSIUM 3.7 mmol/L (3.5-5.1)
[2017-03-13 11:12] LABS: ALBUMIN 3.4 g/dL (3.4-5.0); DIRECT BILIRUBIN 0.2 mg/dL (0.0-0.2); TOTAL BILIRUBIN 0.5 mg/dL (0.2-1.0); TOTAL PROTEIN 8.7 g/dL (6.4-8.2)
[2017-03-13] MEDS: HYDROmorphone 2 MG/ML VIAL IV PRN ×2 (11:13→12:26)
[2017-03-13] MEDS ORDERED: MORPHINE SULFATE 2 MG/ML DISP.SYRIN. IV PRN (12:30)
[2017-03-13] MEDS ORDERED: ONDANSETRON PF 4 MG/2 ML VIAL. IV PRN ×2 (12:30→13:30)
[2017-03-13] MEDS ORDERED: LABETALOL 20 MG/4 ML DISP.SYRIN. IVP ONE (13:15)
[2017-03-13] MEDS ORDERED: oxyCODONE/APAP 10/325 1 TAB TABLET PO PRN (13:30)
[2017-03-13] MEDS ORDERED: ACETAMINOPHEN 325 MG TABLET. PO PRN (13:30)
[2017-03-13] MEDS ORDERED: LABETALOL 20 MG/4 ML DISP.SYRIN. IVP PRN (13:30)
[2017-03-13] MEDS ORDERED: NITROGLYCERIN SUBLINGUAL 0.4 MG BOTTLE OF 25. SL PRN (13:30)
[2017-03-13] MEDS ORDERED: DEXTROSE 50% 25 GM / 50ML DISP.SYRIN. IV PRN (13:30)
--- NOTE | 2017-03-13 14:29 | PDOC1 ---
History and Physical Date of Admission Date of Admission DATE: 03/13/17 TIME: 14:24 Identification/Chief Complaint Chief Complaint Chest pain at the pacer site Problems: Source Source: Caregiver, Chart review, Patient History of Present Illness History of Present Illness 62-year-old -[place] female known to Dr. Arias claims just had a pacer placed 2 weeks ago. I reviewed records, she was last here February 07 admitted for hypertension urgency needing a Cardizem drip. Today she comes in because of chest pain at the pacer site, some shortness of breath, denies diaphoresis or presyncopal symptoms. No radiation, happened at rest. All the workup is negative, the patient is being admitted because of the recent pacemaker implantation and her comorbidities. Blood pressure does run on the high side and she claims she took her blood pressure medications this morning Past Medical History Cardiovascular: CAD, CHF, HTN Pulmonary: No pertinent hx GI: No pertinent hx Heme/Onc: No pertinent hx Hepatobiliary: No pertinent hx Psych: No pertinent hx Rheumatologic: No pertinent hx Endocrine: Diabetes Past Surgical History Past Surgical History: Appendectomy, Total knee replacement, Other (recent pacer implantation 2 weeks ago for fast heart rate") Family History Family History: Diabetes Social History Smoke: No ALCOHOL: none Drugs: None Current Medications Current Medications Current Medications Hydromorphone HCl (Dilaudid) 0.5 mg PRN Q30MIN PRN IV SEVERE PAIN Last administered on 03/13/17t 12:26; Start 03/13/17 at 10:30 Ondansetron HCl (Zofran) 4 mg 1X ONCE IV Last administered on 03/13/17t 11:13 ; Start 03/13/17 at 10:30; Stop 03/13/17 at 10:31; Status DC Ondansetron HCl (Zofran) 4 mg PRN Q8HRS PRN IV NAUSEA/VOMITING; Start at 12:30; Stop 03/13/17 at 13:20; Status DC Morphine Sulfate 2 mg PRN Q2HR PRN IV PAIN; Start 03/13/17 at 12:30; Stop at 12:29 Labetalol HCl (Normodyne) 20 mg 1X ONCE IVP ; Start 03/13/17 at 13:15; Stop 03/13/17 at 13:16; Status DC Ondansetron HCl (Zofran) 4 mg PRN Q6HRS PRN IV NAUSEA/VOMITING; Start at 13:30 Labetalol HCl (Normodyne) 20 mg PRN Q2HR PRN IVP HYPERTENSION, SEE COMMENTS; Start 03/13/17 at 13:30 Acetaminophen (Tylenol) 650 mg PRN Q6HRS PRN PO fever; Start 03/13/17 at 13:30 Aspirin (Ecotrin) 81 mg DAILY PO ; Start 03/13/17 at 14:00 Atorvastatin Calcium (Lipitor) 20 mg HS PO ; Start 03/13/17 at 21:00 Clopidogrel Bisulfate (Plavix) 75 mg DAILY PO ; Start 03/13/17 at 13:00 Ergocalciferol (Vitamin D2) 50,000 unit WEEKLY PO ; Start 03/20/17 at 09:00; Status UNV Famotidine (Pepcid) 20 mg BID PO ; Start 03/13/17 at 21:00 Ferrous Sulfate (Feosol) 325 mg DAILY08 PO ; Start 03/13/17 at 14:00 Furosemide (Lasix) 80 mg BID92 PO ; Start 03/13/17 at 14:00 Insulin Aspart (NovoLOG) 20 units TIDWMEALS SQ ; Start 03/13/17 at 17:00 Insulin Detemir (Levemir) 32 units BID SQ ; Start 03/13/17 at 21:00 Metoprolol Tartrate (Lopressor) 50 mg BID PO ; Start 03/13/17 at 14:00 Oxycodone/ Acetaminophen (Percocet 10/325) 1 tab PRN QID PRN PO PAIN; Start at 13:30 Oxycodone/ Acetaminophen (Percocet 10/325) 2 tab PRN Q6HRS PRN PO PAIN; Start 03/13/17 at 13:30 Vitamin B Complex (Vishnu B) 1 tab DAILY PO ; Start 03/13/17 at 14:00 Losartan Potassium (Cozaar) 100 mg DAILY PO ; Start 03/13/17 at 14:00 Potassium Chloride (Klor-Con) 10 meq BIDWMEALS PO ; Start 03/14/17 at 08:00 Nitroglycerin (Nitrostat) 0.4 mg PRN Q5MIN PRN SL CHEST PAIN; Start 12/21/17 at 13:30 Insulin Aspart (NovoLOG) 0-9 UNITS TIDWMEALS SQ ; Start 03/13/17 at 17:00 Dextrose (Dextrose 50%-Water Syringe) 12.5 gm PRN Q15MIN PRN IV SEE COMMENTS; Start 03/13/17 at 13:30 Active Scripts Active B Complex (Vitamin B Complex) 1 Each Tablet 1 Each PO DAILY Percocet 10-325 Mg Tablet (Oxycodone/Acetaminophen) 1 Each Tablet 2 Tab PO PRN Q6HRS PRN Vitamin D2 (Ergocalciferol (Vitamin D2)) 50,000 Unit Capsule 50,000 Unit PO WEEKLY Losartan Potassium 100 Mg Tablet 100 Mg PO DAILY 60 Days Percocet 10-325 Mg Tablet (Oxycodone/Acetaminophen) 1 Each Tablet 1 Tab PO Q6- 8HRS PRN Lasix (Furosemide) 80 Mg Tablet 1 Tab PO BID Reported Metoprolol Tartrate 50 Mg Tablet 1 Tab PO BID Ferrous Sulfate 325 Mg Tablet 1 Tab PO DAILY NITROGLYCERIN SubLingual (Nitroglycerin) 0.4 Mg Tab.subl 0.4 Mg SL PRN Q5MIN PRN Levemir Flextouch (Insulin Detemir) 100 Unit/1 Ml Insuln.pen 32 Unit SQ BID Novolog Flexpen (Insulin Aspart) 100 Unit/1 Ml Insuln.pen 20 Unit SQ TIDWMEALS Atorvastatin Calcium 20 Mg Tablet 20 Mg PO HS Potassium Chloride 10 Meq Capsule.er 10 Meq PO BID Aspir 81 (Aspirin) 81 Mg Tablet.dr 1 Tab PO DAILY Clopidogrel (Clopidogrel Bisulfate) 75 Mg Tablet 1 Tab PO DAILY Famotidine 20 Mg Tablet 20 Mg PO BID Allergies Allergies: Coded Allergies: No Known Drug Allergies (Unverified , 08/01/13) ROS Review of System As per history of present illness, the rest of review of systems is negative Physical Exam General: Alert, Oriented X3, Cooperative, No acute distress HEENT: Atraumatic, PERRLA, EOMI Lungs: Clear to auscultation, Normal air movement Heart: S1S2, RRR, no thrills, no rubs, no gallops, no murmurs Cardiovascular: S1, S2 Breasts: Normal, Rt breast nml w/o mass, Lt breast nml w/o mass, Nipples normal Rectal Exam: not examined PELVIC: Nml ext genitalia Extremities: No clubbing, No cyanosis, No edema, Normal pulses, No tenderness/ swelling Skin: No rashes, No breakdown, No significant lesion Neuro: Normal gait, Normal speech, Strength at 5/5 X4 ext, Normal tone, Sensation intact, Cranial nerves 3-12 NL, Reflexes 2+ Psych/Mental Status: Mental status NL, Mood NL Vitals Vitals Vital Signs Date Time Temp Pulse Resp B/P (MAP) Pulse Ox O2 Delivery O2 Flow Rate FiO2 03/13/17 12:56 18 95 Nasal Cannula 2.0 03/13/17 12:21 80 218/97 (137) 03/13/17 10:21 98.6 98.6 Labs Labs Laboratory Tests Test 03/13/17 10:45 White Blood Count 7.9 x10^3/uL (4.0-11.0) Red Blood Count 4.50 x10^6/uL (3.50-5.40) Hemoglobin 12.0 g/dL (12.0-15.5) Hematocrit 37.6 % (36.0-47.0) Mean Corpuscular Volume 84 fL (79-100) Mean Corpuscular Hemoglobin 27 pg (25-35) Mean Corpuscular Hemoglobin Concent 32 g/dL (31-37) Red Cell Distribution Width 16.6 % (11.5-14.5) Platelet Count 373 x10^3/uL (140-400) Neutrophils (%) (Auto) 81 % (31-73) Lymphocytes (%) (Auto) 12 % (24-48) Monocytes (%) (Auto) 6 % (0-9) Eosinophils (%) (Auto) 0 % (0-3) Basophils (%) (Auto) 1 % (0-3) Neutrophils # (Auto) 6.4 x10^3uL (1.8-7.7) Lymphocytes # (Auto) 1.0 x10^3/uL (1.0-4.8) Monocytes # (Auto) 0.5 x10^3/uL (0.0-1.1) Eosinophils # (Auto) 0.0 x10^3/uL (0.0-0.7) Basophils # (Auto) 0.1 x10^3/uL (0.0-0.2) Prothrombin Time 13.5 SEC (11.7-14.0) Prothromb Time International Ratio 1.1 (0.8-1.1) Activated Partial Thromboplast Time 33 SEC (24-38) Sodium Level 140 mmol/L (136-145) Potassium Level 3.7 mmol/L (3.5-5.1) Chloride Level 97 mmol/L (98-107) Carbon Dioxide Level 39 mmol/L (21-32) Anion Gap 4 (6-14) Blood Urea Nitrogen 6 mg/dL (7-20) Creatinine 0.7 mg/dL (0.6-1.0) Estimated GFR (Cockcroft-Gault) 102.3 Glucose Level 153 mg/dL (70-99) Calcium Level 9.4 mg/dL (8.5-10.1) Total Bilirubin 0.5 mg/dL (0.2-1.0) Direct Bilirubin 0.2 mg/dL (0.0-0.2) Aspartate Amino Transf (AST/SGOT) 15 U/L (15-37) Alanine Aminotransferase (ALT/SGPT) 18 U/L (14-59) Alkaline Phosphatase 99 U/L (46-116) Troponin I Quantitative 0.025 ng/mL (0.000-0.055) [id number] Natriuretic Peptide 1816 pg/mL (0-124) Total Protein 8.7 g/dL (6.4-8.2) Albumin 3.4 g/dL (3.4-5.0) Lipase 73 U/L (73-393) Laboratory Tests Test 03/13/17 10:45 White Blood Count 7.9 x10^3/uL (4.0-11.0) Red Blood Count 4.50 x10^6/uL (3.50-5.40) Hemoglobin 12.0 g/dL (12.0-15.5) Hematocrit 37.6 % (36.0-47.0) Mean Corpuscular Volume 84 fL (79-100) Mean Corpuscular Hemoglobin 27 pg (25-35) Mean Corpuscular Hemoglobin Concent 32 g/dL (31-37) Red Cell Distribution Width 16.6 % (11.5-14.5) Platelet Count 373 x10^3/uL (140-400) Neutrophils (%) (Auto) 81 % (31-73) Lymphocytes (%) (Auto) 12 % (24-48) Monocytes (%) (Auto) 6 % (0-9) Eosinophils (%) (Auto) 0 % (0-3) Basophils (%) (Auto) 1 % (0-3) Neutrophils # (Auto) 6.4 x10^3uL (1.8-7.7) Lymphocytes # (Auto) 1.0 x10^3/uL (1.0-4.8) Monocytes # (Auto) 0.5 x10^3/uL (0.0-1.1) Eosinophils # (Auto) 0.0 x10^3/uL (0.0-0.7) Basophils # (Auto) 0.1 x10^3/uL (0.0-0.2) Prothrombin Time 13.5 SEC (11.7-14.0) Prothromb Time International Ratio 1.1 (0.8-1.1) Activated Partial Thromboplast Time 33 SEC (24-38) Sodium Level 140 mmol/L (136-145) Potassium Level 3.7 mmol/L (3.5-5.1) Chloride Level 97 mmol/L (98-107) Carbon Dioxide Level 39 mmol/L (21-32) Anion Gap 4 (6-14) Blood Urea Nitrogen 6 mg/dL (7-20) Creatinine 0.7 mg/dL (0.6-1.0) Estimated GFR (Cockcroft-Gault) 102.3 Glucose Level 153 mg/dL (70-99) Calcium Level 9.4 mg/dL (8.5-10.1) Total Bilirubin 0.5 mg/dL (0.2-1.0) Direct Bilirubin 0.2 mg/dL (0.0-0.2) Aspartate Amino Transf (AST/SGOT) 15 U/L (15-37) Alanine Aminotransferase (ALT/SGPT) 18 U/L (14-59) Alkaline Phosphatase 99 U/L (46-116) Troponin I Quantitative 0.025 ng/mL (0.000-0.055) [id number]-Type Natriuretic Peptide 1816 pg/mL (0-124) Total Protein 8.7 g/dL (6.4-8.2) Albumin 3.4 g/dL (3.4-5.0) Lipase 73 U/L (73-393) VTE Prophylaxis Ordered VTE Prophylaxis Devices: Yes VTE Pharmacological Prophylaxi: Yes Assessment/Plan Assessment/Plan Assessment: Chest pain mainly at the pacer site area Recent pacemaker implantation for "fast heart rate" Hypertension uncontrolled Accelerated hypertension present on admission- will add when necessary labetalol IV Diabetes type 2 Obesity with a BMI 42.2 Plan: Admit with hook to telemetry Cards consult Dr. Arias Cycle cardiac enzymes Sliding-scale insulin high-dose Resume home meds, prn labetolol PT OT Further recs pending above course Seen at the emergency room #[id number] CATHIE KNIGHT MD Mar 13, 2017 14:29
[2017-03-13] MEDS: ASPIRIN ENTERIC COATED 81 MG TABLET.DR. PO SCH (14:33)
[2017-03-13] MEDS: CLOPIDOGREL BISULFATE 75 MG TABLET PO SCH (14:33)
[2017-03-13] MEDS: VITAMIN B COMPLEX TABLET. PO SCH (14:33)
[2017-03-13] MEDS: LOSARTAN POTASSIUM 50 MG TABLET. PO SCH (14:33)
[2017-03-13] MEDS: FUROSEMIDE 80 MG TABLET. PO SCH (14:33)
[2017-03-13] MEDS: METOPROLOL TART IMMED RELEASE 50 MG TABLET. PO SCH ×2 (14:33→20:56)
[2017-03-13] MEDS: oxyCODONE/APAP 10/325 1 TAB TABLET PO PRN ×2 (14:34→20:56)
[2017-03-13 14:40] VITALS: BP 188/73
[2017-03-13] MEDS: FERROUS SULFATE 325 MG TABLET. PO SCH (15:18)
--- NOTE | 2017-03-13 15:30 | PHYS DOC ---
Past Medical History Past Medical History: Diabetes-Type II, Heart Disease, Hypertension, CT Additional Past Medical Histor: neuropathy, SLEEP APNEA Past Surgical History: Cholecystectomy, Coronary Bypass Surgery, Hysterectomy, Knee Replacement, Pacemaker, Other Additional Past Surgical Histo: HERNIA, breast reduction, CABG 2014, cardiac cath/stent, L KNEE Alcohol Use: None Drug Use: None Adult General Chief Complaint Chief Complaint: OTHER COMPLAINTS HPI HPI 62-year-old female presenting the emergency department today with chest pain around her pacemaker. 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 She has had a cough as well intermittently. Her cough is nonproductive. Shortness of breath is associated with her chest pain which is worse with walking. Her pain is a sharp shooting pain nonradiating intermittent and without leaving factors. She denies hemoptysis or unilateral leg swelling. Review of systems is negative for nausea vomiting diaphoresis fevers or chills. All other review of systems is negative. ED course: 62-year-old female presenting to the emergency department today with chest pain shortness of breath and cough. Upon arrival she is afebrile with a normal heart rate. Blood pressure is significantly elevated at 200. On examination her pacemaker insertion site is healing well. No evidence of erythema or discharge. Site is clean dry and intact. Otherwise lungs are clear to auscultation bilaterally abdomen is soft and nontender. Chest x-ray obtained and reviewed by myself shows no obvious infiltrate or pneumothorax. Stable cardiomegaly present. Mild central congestion present. EKG obtained and reviewed by myself shows a paced rhythm. Blood work obtained which shows normal troponin. ProBNP 1800. Otherwise workup unremarkable. Given the patient's chest pain patient was admitted for monitoring.I have assessed this patient clinically and believe that their condition requires an admission to the hospital. After consulting the admitting physician about this case, they have asked that I admit this patient to their service as an inpatient based on the clinical presentation and my impression. Current Medications Current Medications Current Medications Medications (Trade) Dose Ordered Sig/Susan Start Time Stop Time Status Last Admin Dose Admin Hydromorphone HCl (Dilaudid) 0.5 mg PRN Q30MIN PRN 03/13/17 10:30 03/13/17 12:26 0.5 MG Ondansetron HCl (Zofran) 4 mg 1X ONCE 03/13/17 10:30 03/13/17 10:31 DC 03/13/17 11:13 4 MG Allergies Allergies Allergies Coded Allergies Type Severity Reaction Last Updated Verified No Known Drug Allergies 08/01/13 No Physical Exam Physical Exam see above Constitutional: Well developed, well nourished, no acute distress, non-toxic appearance. [] HENT: Normocephalic, atraumatic, bilateral external ears normal, oropharynx moist, no oral exudates, nose normal. [] Eyes: PERRLA, EOMI, conjunctiva normal, no discharge. [] Neck: Normal range of motion, no tenderness, supple, no stridor. [] Cardiovascular:Heart rate regular rhythm, no murmur [] Lungs & Thorax: Bilateral breath sounds clear to auscultation [] Abdomen: Bowel sounds normal, soft, no tenderness, no masses, no pulsatile masses. [] Skin: Warm, dry, no erythema, no rash. [] Back: No tenderness, no CVA tenderness. [] Extremities: No tenderness, no cyanosis, no clubbing, ROM intact, no edema. no signs of dvt. Neurologic: Alert and oriented X 3, normal motor function, normal sensory function, no focal deficits noted. [] Psychologic: Affect normal, judgement normal, mood normal. [] Current Patient Data Vital Signs Vital Signs Date Time Temp Pulse Resp B/P (MAP) Pulse Ox O2 Delivery O2 Flow Rate FiO2 03/13/17 11:13 18 96 Nasal Cannula 2.0 03/13/17 10:38 78 214/95 (134) 03/13/17 10:21 98.6 98.6 Lab Values Laboratory Tests Test 03/13/17 10:45 White Blood Count 7.9 x10^3/uL (4.0-11.0) Red Blood Count 4.50 x10^6/uL (3.50-5.40) Hemoglobin 12.0 g/dL (12.0-15.5) Hematocrit 37.6 % (36.0-47.0) Mean Corpuscular Volume 84 fL (79-100) Mean Corpuscular Hemoglobin 27 pg (25-35) Mean Corpuscular Hemoglobin Concent 32 g/dL (31-37) Red Cell Distribution Width 16.6 % (11.5-14.5) H Platelet Count 373 x10^3/uL (140-400) Neutrophils (%) (Auto) 81 % (31-73) H Lymphocytes (%) (Auto) 12 % (24-48) L Monocytes (%) (Auto) 6 % (0-9) Eosinophils (%) (Auto) 0 % (0-3) Basophils (%) (Auto) 1 % (0-3) Neutrophils # (Auto) 6.4 x10^3uL (1.8-7.7) Lymphocytes # (Auto) 1.0 x10^3/uL (1.0-4.8) Monocytes # (Auto) 0.5 x10^3/uL (0.0-1.1) Eosinophils # (Auto) 0.0 x10^3/uL (0.0-0.7) Basophils # (Auto) 0.1 x10^3/uL (0.0-0.2) Prothrombin Time 13.5 SEC (11.7-14.0) Prothrombin Time INR 1.1 (0.8-1.1) PTT 33 SEC (24-38) Sodium Level 140 mmol/L (136-145) Potassium Level 3.7 mmol/L (3.5-5.1) Chloride Level 97 mmol/L (98-107) L Carbon Dioxide Level 39 mmol/L (21-32) H Anion Gap 4 (6-14) L Blood Urea Nitrogen 6 mg/dL (7-20) L Creatinine 0.7 mg/dL (0.6-1.0) Estimated GFR (Cockcroft-Gault) 102.3 Glucose Level 153 mg/dL (70-99) H Calcium Level 9.4 mg/dL (8.5-10.1) Total Bilirubin 0.5 mg/dL (0.2-1.0) Direct Bilirubin 0.2 mg/dL (0.0-0.2) Aspartate Amino Transferase (AST) 15 U/L (15-37) Alanine Aminotransferase (ALT) 18 U/L (14-59) Alkaline Phosphatase 99 U/L (46-116) Troponin I Quantitative 0.025 ng/mL (0.000-0.055) FY-Zrz-D-Type Natriuretic Peptide 1816 pg/mL (0-124) H Total Protein 8.7 g/dL (6.4-8.2) H Albumin 3.4 g/dL (3.4-5.0) Lipase 73 U/L (73-393) Laboratory Tests 03/13/17 10:45 Laboratory Tests 03/13/17 10:45 EKG EKG [] Radiology/Procedures Radiology/Procedures [] Course & Med Decision Making Course & Med Decision Making Pertinent Labs and Imaging studies reviewed. (See chart for details) [] Dragon Disclaimer Dragon Disclaimer This electronic medical record was generated, in whole or in part, using a voice recognition dictation system. Departure Departure Impression: Primary Impression: Chest pain Disposition: ADMITTED INPATIENT Admitting Physician: Other ([facility]) Condition: STABLE Referrals: INDERJIT KOCH MD (PCP) ALEX WILSON MD Mar 13, 2017 15:30
--- NOTE | 2017-03-13 15:41 | EKG ---
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
[2017-03-13] MEDS: INSULIN ASPART 300 UNITS/3 ML INSULN.PEN SQ SCH ×2 (17:14→17:20)
--- NOTE | 2017-03-13 17:59 | PDOC2 ---
CONSULT Date of Consult Date of Consult DATE: 03/13/17 TIME: 17:49 Reason for Consult Reason for Consult: Chest pain Referring Physician Referring Physician: Dr James Identification/Chief Complaint Chief Complaint Chest pain Problems: History of Present Illness Reason for Visit: This patient is a 62-year-old lady that has a known history of coronary artery disease and had previous bypass surgery. The patient had a recent heart catheterization that showed that the grafts were open and there was no significant progression of her [place] vessel coronary artery disease. The patient was having problems with dysrhythmias and bradycardias and had a permanent pacemaker inserted last month. The patient now comes in complaining of some chest pains it's mostly over the pacemaker area. She denies any significant dyspnea, denies palpitations, denies fever, no chills, no loss of consciousness. She has had significant problems with episodes of high blood pressure in the past and this time when she came in her blood pressure was elevated, she was fatigued and had some mild dyspnea. At the time that I saw her she denied having any chest pains, she states that there is some tenderness around the pacemaker site but no complaints of angina or significant breast dyspnea. Past Medical History Cardiovascular: CAD, CHF, HTN Pulmonary: No pertinent hx GI: No pertinent hx Heme/Onc: No pertinent hx Hepatobiliary: No pertinent hx Psych: No pertinent hx Rheumatologic: No pertinent hx Endocrine: Diabetes Past Surgical History Past Surgical History: Appendectomy, Total knee replacement, Other (recent pacer implantation 2 weeks ago for fast heart rate") Family History Family History: Diabetes Social History No ALCOHOL: none Drugs: None Current Medications Current Medications Current Medications Hydromorphone HCl (Dilaudid) 0.5 mg PRN Q30MIN PRN IV SEVERE PAIN Last administered on 03/13/17t 12:26; Start 03/13/17 at 10:30 Ondansetron HCl (Zofran) 4 mg 1X ONCE IV Last administered on 03/13/17 11:13 ; Start 03/13/17 at 10:30; Stop 03/13/17 at 10:31; Status DC Ondansetron HCl (Zofran) 4 mg PRN Q8HRS PRN IV NAUSEA/VOMITING; Start at 12:30; Stop 03/13/17 at 13:20; Status DC Morphine Sulfate 2 mg PRN Q2HR PRN IV PAIN; Start 03/13/17 at 12:30; Stop at 12:29 Labetalol HCl (Normodyne) 20 mg 1X ONCE IVP ; Start 03/13/17 at 13:15; Stop 03/13/17 at 13:16; Status DC Ondansetron HCl (Zofran) 4 mg PRN Q6HRS PRN IV NAUSEA/VOMITING; Start at 13:30 Labetalol HCl (Normodyne) 20 mg PRN Q2HR PRN IVP HYPERTENSION, SEE COMMENTS Last administered on 03/13/17 15:19; Start 03/13/17 at 13:30 Acetaminophen (Tylenol) 650 mg PRN Q6HRS PRN PO fever; Start 03/13/17 at 13:30 Aspirin (Ecotrin) 81 mg DAILY PO Last administered on 03/13/17 14:33; Start 03/13/17 at 14:00 Atorvastatin Calcium (Lipitor) 20 mg HS PO ; Start 03/13/17 at 21:00 Clopidogrel Bisulfate (Plavix) 75 mg DAILY PO Last administered on 03/13/17 14:33; Start 03/13/17 at 13:00 Ergocalciferol (Vitamin D2) 50,000 unit Mo PO ; Start 03/17/17 at 09:00 Famotidine (Pepcid) 20 mg BID PO ; Start 03/13/17 at 21:00 Ferrous Sulfate (Feosol) 325 mg DAILY08 PO Last administered on 03/13/17 15: 18; Start 03/13/17 at 14:00 Furosemide (Lasix) 80 mg BID92 PO Last administered on 03/13/17 14:33; Start 03/13/17 at 14:00 Insulin Aspart (NovoLOG) 20 units TIDWMEALS SQ Last administered on 03/13/17 17:14; Start 03/13/17 at 17:00 Insulin Detemir (Levemir) 32 units BID SQ ; Start 03/13/17 at 21:00 Metoprolol Tartrate (Lopressor) 50 mg BID PO Last administered on 03/13/17 14 :33; Start 03/13/17 at 14:00 Oxycodone/ Acetaminophen (Percocet 10/325) 1 tab PRN QID PRN PO PAIN; Start at 13:30 Oxycodone/ Acetaminophen (Percocet 10/325) 2 tab PRN Q6HRS PRN PO PAIN Last administered on 03/13/17 14:34; Start 03/13/17 at 13:30 Vitamin B Complex (Vishnu B) 1 tab DAILY PO Last administered on 03/13/17 14:33 ; Start 03/13/17 at 14:00 Losartan Potassium (Cozaar) 100 mg DAILY PO Last administered on 03/13/17 14: 33; Start 03/13/17 at 14:00 Potassium Chloride (Klor-Con) 10 meq BIDWMEALS PO ; Start 03/14/17 at 08:00 Nitroglycerin (Nitrostat) 0.4 mg PRN Q5MIN PRN SL CHEST PAIN; Start 03/13/17 at 13:30 Insulin Aspart (NovoLOG) 0-9 UNITS TIDWMEALS SQ Last administered on 17:20; Start 03/13/17 at 17:00 Dextrose (Dextrose 50%-Water Syringe) 12.5 gm PRN Q15MIN PRN IV SEE COMMENTS; Start 03/13/17 at 13:30 Active Scripts Active B Complex (Vitamin B Complex) 1 Each Tablet 1 Each PO DAILY Percocet 10-325 Mg Tablet (Oxycodone/Acetaminophen) 1 Each Tablet 2 Tab PO PRN Q6HRS PRN Vitamin D2 (Ergocalciferol (Vitamin D2)) 50,000 Unit Capsule 50,000 Unit PO WEEKLY Losartan Potassium 100 Mg Tablet 100 Mg PO DAILY 60 Days Percocet 10-325 Mg Tablet (Oxycodone/Acetaminophen) 1 Each Tablet 1 Tab PO Q6- 8HRS PRN Lasix (Furosemide) 80 Mg Tablet 1 Tab PO BID Reported Metoprolol Tartrate 50 Mg Tablet 1 Tab PO BID Ferrous Sulfate 325 Mg Tablet 1 Tab PO DAILY NITROGLYCERIN SubLingual (Nitroglycerin) 0.4 Mg Tab.subl 0.4 Mg SL PRN Q5MIN PRN Levemir Flextouch (Insulin Detemir) 100 Unit/1 Ml Insuln.pen 32 Unit SQ BID Novolog Flexpen (Insulin Aspart) 100 Unit/1 Ml Insuln.pen 20 Unit SQ TIDWMEALS Atorvastatin Calcium 20 Mg Tablet 20 Mg PO HS Potassium Chloride 10 Meq Capsule.er 10 Meq PO BID Aspir 81 (Aspirin) 81 Mg Tablet. 1 Tab PO DAILY Clopidogrel (Clopidogrel Bisulfate) 75 Mg Tablet 1 Tab PO DAILY Famotidine 20 Mg Tablet 20 Mg PO BID Allergies Allergies: Coded Allergies: No Known Drug Allergies (Unverified , 08/01/13) Physical Exam General: Alert, Oriented X3, Cooperative HEENT: PERRLA Lungs: Clear to auscultation Heart: Regular rate, Normal S1, Normal S2 Abdomen: Normal bowel sounds, Soft Extremities: No edema Vitals VITALS Vital Signs Date Time Temp Pulse Resp B/P (MAP) Pulse Ox O2 Delivery O2 Flow Rate FiO2 03/13/17 15:19 89 188/73 03/13/17 14:40 99.0 17 92 Nasal Cannula 2.0 99.0 Labs Labs Laboratory Tests Test 03/13/17 10:45 03/13/17 16:10 White Blood Count 7.9 x10^3/uL (4.0-11.0) Red Blood Count 4.50 x10^6/uL (3.50-5.40) Hemoglobin 12.0 g/dL (12.0-15.5) Hematocrit 37.6 % (36.0-47.0) Mean Corpuscular Volume 84 fL (79-100) Mean Corpuscular Hemoglobin 27 pg (25-35) Mean Corpuscular Hemoglobin Concent 32 g/dL (31-37) Red Cell Distribution Width 16.6 % (11.5-14.5) Platelet Count 373 x10^3/uL (140-400) Neutrophils (%) (Auto) 81 % (31-73) Lymphocytes (%) (Auto) 12 % (24-48) Monocytes (%) (Auto) 6 % (0-9) Eosinophils (%) (Auto) 0 % (0-3) Basophils (%) (Auto) 1 % (0-3) Neutrophils # (Auto) 6.4 x10^3uL (1.8-7.7) Lymphocytes # (Auto) 1.0 x10^3/uL (1.0-4.8) Monocytes # (Auto) 0.5 x10^3/uL (0.0-1.1) Eosinophils # (Auto) 0.0 x10^3/uL (0.0-0.7) Basophils # (Auto) 0.1 x10^3/uL (0.0-0.2) Prothrombin Time 13.5 SEC (11.7-14.0) Prothromb Time International Ratio 1.1 (0.8-1.1) Activated Partial Thromboplast Time 33 SEC (24-38) Sodium Level 140 mmol/L (136-145) Potassium Level 3.7 mmol/L (3.5-5.1) Chloride Level 97 mmol/L (98-107) Carbon Dioxide Level 39 mmol/L (21-32) Anion Gap 4 (6-14) Blood Urea Nitrogen 6 mg/dL (7-20) Creatinine 0.7 mg/dL (0.6-1.0) Estimated GFR (Cockcroft-Gault) 102.3 Glucose Level 153 mg/dL (70-99) Calcium Level 9.4 mg/dL (8.5-10.1) Total Bilirubin 0.5 mg/dL (0.2-1.0) Direct Bilirubin 0.2 mg/dL (0.0-0.2) Aspartate Amino Transf (AST/SGOT) 15 U/L (15-37) Alanine Aminotransferase (ALT/SGPT) 18 U/L (14-59) Alkaline Phosphatase 99 U/L (46-116) Troponin I Quantitative 0.025 ng/mL (0.000-0.055) RE-Rye-O-Type Natriuretic Peptide 1816 pg/mL (0-124) Total Protein 8.7 g/dL (6.4-8.2) Albumin 3.4 g/dL (3.4-5.0) Lipase 73 U/L (73-393) Glucose (Fingerstick) 233 mg/dL (70-99) Laboratory Tests Test 03/13/17 10:45 03/13/17 16:10 White Blood Count 7.9 x10^3/uL (4.0-11.0) Red Blood Count 4.50 x10^6/uL (3.50-5.40) Hemoglobin 12.0 g/dL (12.0-15.5) Hematocrit 37.6 % (36.0-47.0) Mean Corpuscular Volume 84 fL (79-100) Mean Corpuscular Hemoglobin 27 pg (25-35) Mean Corpuscular Hemoglobin Concent 32 g/dL (31-37) Red Cell Distribution Width 16.6 % (11.5-14.5) Platelet Count 373 x10^3/uL (140-400) Neutrophils (%) (Auto) 81 % (31-73) Lymphocytes (%) (Auto) 12 % (24-48) Monocytes (%) (Auto) 6 % (0-9) Eosinophils (%) (Auto) 0 % (0-3) Basophils (%) (Auto) 1 % (0-3) Neutrophils # (Auto) 6.4 x10^3uL (1.8-7.7) Lymphocytes # (Auto) 1.0 x10^3/uL (1.0-4.8) Monocytes # (Auto) 0.5 x10^3/uL (0.0-1.1) Eosinophils # (Auto) 0.0 x10^3/uL (0.0-0.7) Basophils # (Auto) 0.1 x10^3/uL (0.0-0.2) Prothrombin Time 13.5 SEC (11.7-14.0) Prothromb Time International Ratio 1.1 (0.8-1.1) Activated Partial Thromboplast Time 33 SEC (24-38) Sodium Level 140 mmol/L (136-145) Potassium Level 3.7 mmol/L (3.5-5.1) Chloride Level 97 mmol/L (98-107) Carbon Dioxide Level 39 mmol/L (21-32) Anion Gap 4 (6-14) Blood Urea Nitrogen 6 mg/dL (7-20) Creatinine 0.7 mg/dL (0.6-1.0) Estimated GFR (Cockcroft-Gault) 102.3 Glucose Level 153 mg/dL (70-99) Calcium Level 9.4 mg/dL (8.5-10.1) Total Bilirubin 0.5 mg/dL (0.2-1.0) Direct Bilirubin 0.2 mg/dL (0.0-0.2) Aspartate Amino Transf (AST/SGOT) 15 U/L (15-37) Alanine Aminotransferase (ALT/SGPT) 18 U/L (14-59) Alkaline Phosphatase 99 U/L (46-116) Troponin I Quantitative 0.025 ng/mL (0.000-0.055) JR-Eqf-T-Type Natriuretic Peptide 1816 pg/mL (0-124) Total Protein 8.7 g/dL (6.4-8.2) Albumin 3.4 g/dL (3.4-5.0) Lipase 73 U/L (73-393) Glucose (Fingerstick) 233 mg/dL (70-99) Assessment/Plan Assessment/Plan This patient has a known history of coronary artery disease and has had bypass surgery as well as a pacemaker. She came in with elevated blood pressures and nonspecific symptoms but from a cardiac standpoint she seems to be compensated although her BP has been up. The discomfort that she is having in the chest is more over the pacemaker site which was just implanted less than a month ago. Patient had negative enzymes and no significant changes in her EKG. I do not have any further cardiac workup at this time. Thank you very much for asking me to participate in the care of this patient LIZBET LINDSAY MD Mar 13, 2017 17:59
[2017-03-13 19:00] VITALS: BP 120/57
[2017-03-13] MEDS: FAMOTIDINE 20 MG TABLET. PO SCH (20:55)
[2017-03-13] MEDS: ATORVASTATIN CALCIUM 20 MG TABLET PO SCH (20:56)
[2017-03-13] MEDS: INSULIN DETEMIR 300 UNITS/3 ML INSULN.PEN. SQ SCH (21:00)
[2017-03-13 22:31] VITALS: BP 107/64
[2017-03-14 03:00] VITALS: BP 134/89
[2017-03-14] MEDS: oxyCODONE/APAP 10/325 1 TAB TABLET PO PRN ×3 (04:10→20:54)
[2017-03-14 05:38] LABS: BASO % 0 % (0-3); EOS % 1 % (0-3); HEMATOCRIT 35.8 % (36.0-47.0); HEMOGLOBIN 11.2 g/dL (12.0-15.5); LYMPH # 2.1 x10^3/uL (1.0-4.8); LYMPH % 24 % (24-48); MEAN CORPUSCULAR HEMOGLOBIN 27 pg (25-35); MEAN CORPUSCULAR HGB CONC 31 g/dL (31-37); MEAN CORPUSCULAR VOLUME 87 fL (79-100); MONO % 7 % (0-9); NEUT % 68 % (31-73); PLATELET COUNT 363 x10^3/uL (140-400); RED BLOOD COUNT 4.13 x10^6/uL (3.50-5.40); RED CELL DISTRIBUTION WIDTH 16.7 % (11.5-14.5); WHITE BLOOD COUNT 8.9 x10^3/uL (4.0-11.0)
[2017-03-14 06:06] LABS: CALCIUM 9.1 mg/dL (8.5-10.1); CREATININE 1.3 mg/dL (0.6-1.0); GFR 50.1; POTASSIUM 3.8 mmol/L (3.5-5.1)
[2017-03-14 07:00] VITALS: BP 134/56
[2017-03-14] MEDS: INSULIN ASPART 300 UNITS/3 ML INSULN.PEN SQ SCH ×6 (08:00→17:10)
[2017-03-14] MEDS: METOPROLOL TART IMMED RELEASE 50 MG TABLET. PO SCH ×2 (08:13→20:56)
[2017-03-14] MEDS: VITAMIN B COMPLEX TABLET. PO SCH (08:14)
[2017-03-14] MEDS: LOSARTAN POTASSIUM 50 MG TABLET. PO SCH (08:14)
[2017-03-14] MEDS: ASPIRIN ENTERIC COATED 81 MG TABLET.DR. PO SCH (08:14)
[2017-03-14] MEDS: FAMOTIDINE 20 MG TABLET. PO SCH ×2 (08:14→20:56)
[2017-03-14] MEDS: CLOPIDOGREL BISULFATE 75 MG TABLET PO SCH (08:14)
[2017-03-14] MEDS: FUROSEMIDE 80 MG TABLET. PO SCH ×2 (08:15→13:31)
[2017-03-14] MEDS: FERROUS SULFATE 325 MG TABLET. PO SCH (08:15)
[2017-03-14] MEDS: POTASSIUM CHLORIDE 10 MEQ TABLET.ER. PO SCH ×2 (08:19→17:05)
[2017-03-14] MEDS: INSULIN DETEMIR 300 UNITS/3 ML INSULN.PEN. SQ SCH ×2 (08:30→21:01)
--- NOTE | 2017-03-14 10:52 | PDOC ---
PROGRESS NOTES Chief Complaint Chief Complaint Chest pain around the site of pacemaker HTN History of Present Illness History of Present Illness Patient seen at bedside Chest pain improving HTN from when she was admitted has resolved VSS Discussed with nurse Vitals Vitals Vital Signs Date Time Temp Pulse Resp B/P (MAP) Pulse Ox O2 Delivery O2 Flow Rate FiO2 03/14/17 08:31 95 Nasal Cannula 2.0 03/14/17 08:14 60 134/56 03/14/17 07:00 97.7 20 97.7 Physical Exam General: Alert, Oriented X3, Cooperative Heart: Regular rate, Normal S1, Normal S2 Lungs: Clear Abdomen: Normal bowel sounds, Soft Extremities: No edema Skin: No rashes, No breakdown, No significant lesion Labs LABS Laboratory Tests Test 03/13/17 16:10 03/13/17 18:10 03/13/17 20:08 03/14/17 00:30 Glucose (Fingerstick) 233 mg/dL (70-99) 55 mg/dL (70-99) Troponin I Quantitative 0.024 ng/mL (0.000-0.055) 0.029 ng/mL (0.000-0.055) Test 03/14/17 05:00 03/14/17 07:23 White Blood Count 8.9 x10^3/uL (4.0-11.0) Red Blood Count 4.13 x10^6/uL (3.50-5.40) Hemoglobin 11.2 g/dL (12.0-15.5) Hematocrit 35.8 % (36.0-47.0) Mean Corpuscular Volume 87 fL (79-100) Mean Corpuscular Hemoglobin 27 pg (25-35) Mean Corpuscular Hemoglobin Concent 31 g/dL (31-37) Red Cell Distribution Width 16.7 % (11.5-14.5) Platelet Count 363 x10^3/uL (140-400) Neutrophils (%) (Auto) 68 % (31-73) Lymphocytes (%) (Auto) 24 % (24-48) Monocytes (%) (Auto) 7 % (0-9) Eosinophils (%) (Auto) 1 % (0-3) Basophils (%) (Auto) 0 % (0-3) Neutrophils # (Auto) 6.0 x10^3uL (1.8-7.7) Lymphocytes # (Auto) 2.1 x10^3/uL (1.0-4.8) Monocytes # (Auto) 0.6 x10^3/uL (0.0-1.1) Eosinophils # (Auto) 0.1 x10^3/uL (0.0-0.7) Basophils # (Auto) 0.0 x10^3/uL (0.0-0.2) Sodium Level 142 mmol/L (136-145) Potassium Level 3.8 mmol/L (3.5-5.1) Chloride Level 100 mmol/L (98-107) Carbon Dioxide Level 37 mmol/L (21-32) Anion Gap 5 (6-14) Blood Urea Nitrogen 14 mg/dL (7-20) Creatinine 1.3 mg/dL (0.6-1.0) Estimated GFR (Cockcroft-Gault) 50.1 Glucose Level 140 mg/dL (70-99) Calcium Level 9.1 mg/dL (8.5-10.1) Glucose (Fingerstick) 118 mg/dL (70-99) Review of Systems Review of Systems Denies abdominal pain Denies SOA or dyspnea Assessment and Plan Assessmemt and Plan Assessment Chest pain around the site of pacemaker HTN Plan DC disposition pending Home meds PRN pain medications Appreciate subspecialty input Problems: Comment Review of Relevant I have reviewed the following items nolan (where applicable) has been applied. Labs Laboratory Tests Test 03/13/17 10:45 03/13/17 16:10 03/13/17 18:10 03/13/17 20:08 White Blood Count 7.9 x10^3/uL (4.0-11.0) Red Blood Count 4.50 x10^6/uL (3.50-5.40) Hemoglobin 12.0 g/dL (12.0-15.5) Hematocrit 37.6 % (36.0-47.0) Mean Corpuscular Volume 84 fL (79-100) Mean Corpuscular Hemoglobin 27 pg (25-35) Mean Corpuscular Hemoglobin Concent 32 g/dL (31-37) Red Cell Distribution Width 16.6 % (11.5-14.5) Platelet Count 373 x10^3/uL (140-400) Neutrophils (%) (Auto) 81 % (31-73) Lymphocytes (%) (Auto) 12 % (24-48) Monocytes (%) (Auto) 6 % (0-9) Eosinophils (%) (Auto) 0 % (0-3) Basophils (%) (Auto) 1 % (0-3) Neutrophils # (Auto) 6.4 x10^3uL (1.8-7.7) Lymphocytes # (Auto) 1.0 x10^3/uL (1.0-4.8) Monocytes # (Auto) 0.5 x10^3/uL (0.0-1.1) Eosinophils # (Auto) 0.0 x10^3/uL (0.0-0.7) Basophils # (Auto) 0.1 x10^3/uL (0.0-0.2) Prothrombin Time 13.5 SEC (11.7-14.0) Prothromb Time International Ratio 1.1 (0.8-1.1) Activated Partial Thromboplast Time 33 SEC (24-38) Sodium Level 140 mmol/L (136-145) Potassium Level 3.7 mmol/L (3.5-5.1) Chloride Level 97 mmol/L (98-107) Carbon Dioxide Level 39 mmol/L (21-32) Anion Gap 4 (6-14) Blood Urea Nitrogen 6 mg/dL (7-20) Creatinine 0.7 mg/dL (0.6-1.0) Estimated GFR (Cockcroft-Gault) 102.3 Glucose Level 153 mg/dL (70-99) Calcium Level 9.4 mg/dL (8.5-10.1) Total Bilirubin 0.5 mg/dL (0.2-1.0) Direct Bilirubin 0.2 mg/dL (0.0-0.2) Aspartate Amino Transf (AST/SGOT) 15 U/L (15-37) Alanine Aminotransferase (ALT/SGPT) 18 U/L (14-59) Alkaline Phosphatase 99 U/L (46-116) Troponin I Quantitative 0.025 ng/mL (0.000-0.055) 0.024 ng/mL (0.000-0.055) [id number] Natriuretic Peptide 1816 pg/mL (0-124) Total Protein 8.7 g/dL (6.4-8.2) Albumin 3.4 g/dL (3.4-5.0) Lipase 73 U/L (73-393) Glucose (Fingerstick) 233 mg/dL (70-99) 55 mg/dL (70-99) Test 03/14/17 00:30 03/14/17 05:00 03/14/17 07:23 Troponin I Quantitative 0.029 ng/mL (0.000-0.055) White Blood Count 8.9 x10^3/uL (4.0-11.0) Red Blood Count 4.13 x10^6/uL (3.50-5.40) Hemoglobin 11.2 g/dL (12.0-15.5) Hematocrit 35.8 % (36.0-47.0) Mean Corpuscular Volume 87 fL (79-100) Mean Corpuscular Hemoglobin 27 pg (25-35) Mean Corpuscular Hemoglobin Concent 31 g/dL (31-37) Red Cell Distribution Width 16.7 % (11.5-14.5) Platelet Count 363 x10^3/uL (140-400) Neutrophils (%) (Auto) 68 % (31-73) Lymphocytes (%) (Auto) 24 % (24-48) Monocytes (%) (Auto) 7 % (0-9) Eosinophils (%) (Auto) 1 % (0-3) Basophils (%) (Auto) 0 % (0-3) Neutrophils # (Auto) 6.0 x10^3uL (1.8-7.7) Lymphocytes # (Auto) 2.1 x10^3/uL (1.0-4.8) Monocytes # (Auto) 0.6 x10^3/uL (0.0-1.1) Eosinophils # (Auto) 0.1 x10^3/uL (0.0-0.7) Basophils # (Auto) 0.0 x10^3/uL (0.0-0.2) Sodium Level 142 mmol/L (136-145) Potassium Level 3.8 mmol/L (3.5-5.1) Chloride Level 100 mmol/L (98-107) Carbon Dioxide Level 37 mmol/L (21-32) Anion Gap 5 (6-14) Blood Urea Nitrogen 14 mg/dL (7-20) Creatinine 1.3 mg/dL (0.6-1.0) Estimated GFR (Cockcroft-Gault) 50.1 Glucose Level 140 mg/dL (70-99) Calcium Level 9.1 mg/dL (8.5-10.1) Glucose (Fingerstick) 118 mg/dL (70-99) Laboratory Tests Test 03/13/17 16:10 03/13/17 18:10 03/13/17 20:08 03/14/17 00:30 Glucose (Fingerstick) 233 mg/dL (70-99) 55 mg/dL (70-99) Troponin I Quantitative 0.024 ng/mL (0.000-0.055) 0.029 ng/mL (0.000-0.055) Test 03/14/17 05:00 03/14/17 07:23 White Blood Count 8.9 x10^3/uL (4.0-11.0) Red Blood Count 4.13 x10^6/uL (3.50-5.40) Hemoglobin 11.2 g/dL (12.0-15.5) Hematocrit 35.8 % (36.0-47.0) Mean Corpuscular Volume 87 fL (79-100) Mean Corpuscular Hemoglobin 27 pg (25-35) Mean Corpuscular Hemoglobin Concent 31 g/dL (31-37) Red Cell Distribution Width 16.7 % (11.5-14.5) Platelet Count 363 x10^3/uL (140-400) Neutrophils (%) (Auto) 68 % (31-73) Lymphocytes (%) (Auto) 24 % (24-48) Monocytes (%) (Auto) 7 % (0-9) Eosinophils (%) (Auto) 1 % (0-3) Basophils (%) (Auto) 0 % (0-3) Neutrophils # (Auto) 6.0 x10^3uL (1.8-7.7) Lymphocytes # (Auto) 2.1 x10^3/uL (1.0-4.8) Monocytes # (Auto) 0.6 x10^3/uL (0.0-1.1) Eosinophils # (Auto) 0.1 x10^3/uL (0.0-0.7) Basophils # (Auto) 0.0 x10^3/uL (0.0-0.2) Sodium Level 142 mmol/L (136-145) Potassium Level 3.8 mmol/L (3.5-5.1) Chloride Level 100 mmol/L (98-107) Carbon Dioxide Level 37 mmol/L (21-32) Anion Gap 5 (6-14) Blood Urea Nitrogen 14 mg/dL (7-20) Creatinine 1.3 mg/dL (0.6-1.0) Estimated GFR (Cockcroft-Gault) 50.1 Glucose Level 140 mg/dL (70-99) Calcium Level 9.1 mg/dL (8.5-10.1) Glucose (Fingerstick) 118 mg/dL (70-99) Medications Current Medications Hydromorphone HCl (Dilaudid) 0.5 mg PRN Q30MIN PRN IV SEVERE PAIN Last administered on 03/13/17 12:26; Start 03/13/17 at 10:30 Ondansetron HCl (Zofran) 4 mg 1X ONCE IV Last administered on 03/13/17 11:13 ; Start 03/13/17 at 10:30; Stop 03/13/17 at 10:31; Status DC Ondansetron HCl (Zofran) 4 mg PRN Q8HRS PRN IV NAUSEA/VOMITING; Start at 12:30; Stop 03/13/17 at 13:20; Status DC Morphine Sulfate 2 mg PRN Q2HR PRN IV PAIN; Start 03/13/17 at 12:30; Stop at 12:29 Labetalol HCl (Normodyne) 20 mg 1X ONCE IVP ; Start 03/13/17 at 13:15; Stop 03/13/17 at 13:16; Status DC Ondansetron HCl (Zofran) 4 mg PRN Q6HRS PRN IV NAUSEA/VOMITING; Start at 13:30 Labetalol HCl (Normodyne) 20 mg PRN Q2HR PRN IVP HYPERTENSION, SEE COMMENTS Last administered on 03/13/17 15:19; Start 03/13/17 at 13:30 Acetaminophen (Tylenol) 650 mg PRN Q6HRS PRN PO fever Last administered on 08:12; Start 03/13/17 at 13:30 Aspirin (Ecotrin) 81 mg DAILY PO Last administered on 03/14/17 08:14; Start 03/13/17 at 14:00 Atorvastatin Calcium (Lipitor) 20 mg HS PO Last administered on 03/13/17 20: 56; Start 03/13/17 at 21:00 Clopidogrel Bisulfate (Plavix) 75 mg DAILY PO Last administered on 03/14/17 08:14; Start 03/13/17 at 13:00 Ergocalciferol (Vitamin D2) 50,000 unit Mo PO ; Start 03/17/17 at 09:00 Famotidine (Pepcid) 20 mg BID PO Last administered on 03/14/17 08:14; Start 03/13/17 at 21:00 Ferrous Sulfate (Feosol) 325 mg DAILY08 PO Last administered on 03/14/17 08: 15; Start 03/13/17 at 14:00 Furosemide (Lasix) 80 mg BID92 PO Last administered on 03/14/17 08:15; Start 03/13/17 at 14:00 Insulin Aspart (NovoLOG) 20 units TIDWMEALS SQ Last administered on 03/14/17 08:28; Start 03/13/17 at 17:00 Insulin Detemir (Levemir) 32 units BID SQ Last administered on 03/14/17 08:30 ; Start 03/13/17 at 21:00 Metoprolol Tartrate (Lopressor) 50 mg BID PO Last administered on 03/14/17 08 :13; Start 03/13/17 at 14:00 Oxycodone/ Acetaminophen (Percocet 10/325) 1 tab PRN QID PRN PO PAIN Last administered on 03/14/17 08:13; Start 03/13/17 at 13:30 Oxycodone/ Acetaminophen (Percocet 10/325) 2 tab PRN Q6HRS PRN PO PAIN Last administered on 03/14/17 04:10; Start 03/13/17 at 13:30 Vitamin B Complex (Vishnu B) 1 tab DAILY PO Last administered on 03/14/17 08:14 ; Start 03/13/17 at 14:00 Losartan Potassium (Cozaar) 100 mg DAILY PO Last administered on 03/14/17 08: 14; Start 03/13/17 at 14:00 Potassium Chloride (Klor-Con) 10 meq BIDWMEALS PO Last administered on 08:19; Start 03/14/17 at 08:00 Nitroglycerin (Nitrostat) 0.4 mg PRN Q5MIN PRN SL CHEST PAIN; Start 03/13/17 at 13:30 Insulin Aspart (NovoLOG) 0-9 UNITS TIDWMEALS SQ Last administered on 17:20; Start 03/13/17 at 17:00 Dextrose (Dextrose 50%-Water Syringe) 12.5 gm PRN Q15MIN PRN IV SEE COMMENTS; Start 03/13/17 at 13:30 Active Scripts Active B Complex (Vitamin B Complex) 1 Each Tablet 1 Each PO DAILY Percocet 10-325 Mg Tablet (Oxycodone/Acetaminophen) 1 Each Tablet 2 Tab PO PRN Q6HRS PRN Vitamin D2 (Ergocalciferol (Vitamin D2)) 50,000 Unit Capsule 50,000 Unit PO WEEKLY Losartan Potassium 100 Mg Tablet 100 Mg PO DAILY 60 Days Percocet 10-325 Mg Tablet (Oxycodone/Acetaminophen) 1 Each Tablet 1 Tab PO Q6- 8HRS PRN Lasix (Furosemide) 80 Mg Tablet 1 Tab PO BID Reported Metoprolol Tartrate 50 Mg Tablet 1 Tab PO BID Ferrous Sulfate 325 Mg Tablet 1 Tab PO DAILY NITROGLYCERIN SubLingual (Nitroglycerin) 0.4 Mg Tab.subl 0.4 Mg SL PRN Q5MIN PRN Levemir Flextouch (Insulin Detemir) 100 Unit/1 Ml Insuln.pen 32 Unit SQ BID Novolog Flexpen (Insulin Aspart) 100 Unit/1 Ml Insuln.pen 20 Unit SQ TIDWMEALS Atorvastatin Calcium 20 Mg Tablet 20 Mg PO HS Potassium Chloride 10 Meq Capsule.er 10 Meq PO BID Aspir 81 (Aspirin) 81 Mg Tablet.dr 1 Tab PO DAILY Clopidogrel (Clopidogrel Bisulfate) 75 Mg Tablet 1 Tab PO DAILY Famotidine 20 Mg Tablet 20 Mg PO BID Vitals/I & O Vital Sign - Last 24 Hours 03/13/17 03/13/17 03/13/17 03/13/17 11:13 11:51 12:21 12:26 Pulse 80 80 Resp 18 17 16 16 B/P (MAP) 209/86 (127) 218/97 (137) Pulse Ox 96 94 94 94 O2 Delivery Nasal Cannula Nasal Cannula Nasal Cannula Room Air O2 Flow Rate 2.0 03/13/17 03/13/17 03/13/17 03/13/17 12:51 12:56 13:15 13:24 Pulse 84 89 80 Resp 22 18 24 B/P (MAP) 220/85 (130) 188/73 194/84 (120) Pulse Ox 92 95 95 O2 Delivery Nasal Cannula Nasal Cannula Nasal Cannula O2 Flow Rate 2.0 03/13/17 03/13/17 03/13/17 03/13/17 14:33 14:33 14:40 15:19 Temp 99.0 99.0 Pulse 80 80 89 89 Resp 17 B/P (MAP) 218/97 218/97 188/73 (111) 188/73 Pulse Ox 92 O2 Delivery Nasal Cannula O2 Flow Rate 2.0 03/13/17 03/13/17 03/13/17 03/13/17 19:00 19:50 20:56 20:56 Temp 97.8 97.8 Pulse 60 60 Resp 18 20 B/P (MAP) 120/57 (78) 120/57 Pulse Ox 95 O2 Delivery Nasal Cannula Nasal Cannula Nasal Cannula O2 Flow Rate 2.0 2.0 03/13/17 03/14/17 03/14/17 03/14/17 22:31 03:00 04:10 07:00 Temp 98.6 98.1 97.7 98.6 98.1 97.7 Pulse 59 75 60 Resp 19 19 20 20 B/P (MAP) 107/64 (78) 134/89 (104) 134/56 (82) Pulse Ox 96 94 95 O2 Delivery Nasal Cannula Nasal Cannula Nasal Cannula Nasal Cannula O2 Flow Rate 2.0 2.0 2.0 03/14/17 03/14/17 03/14/17 03/14/17 07:42 08:13 08:13 08:14 Pulse 60 60 B/P (MAP) 134/56 134/56 Pulse Ox 95 O2 Delivery Nasal Cannula Nasal Cannula O2 Flow Rate 2.0 2.0 03/14/17 08:31 Pulse Ox 95 O2 Delivery Nasal Cannula O2 Flow Rate 2.0 Intake and Output 03/13/17 03/13/17 03/14/17 14:59 22:59 06:59 Intake Total 240 ml 1200 ml Balance 240 ml 1200 ml CASTLE,NIAL K III DO Mar 14, 2017 10:52
[2017-03-14 11:00] VITALS: BP 122/42
[2017-03-14 15:00] VITALS: BP 127/46
--- NOTE | 2017-03-14 15:41 | PDOC ---
PROGRESS NOTES Subjective Subjective Pt complains of pain around pacer area. No angina Pacer working normally Objective Objective Vital Signs Date Time Temp Pulse Resp B/P (MAP) Pulse Ox O2 Delivery O2 Flow Rate FiO2 03/14/17 15:00 97.8 62 20 127/46 (73) 96 Nasal Cannula 2.0 97.8 Intake and Output 03/14/17 07:00 Intake Total 1440 ml Balance 1440 ml Intake Oral 1440 ml # Voids 1 Physical Exam Physical Exam No changes in cardiac exam. Pacer incision healed Assessment Assessment Pt compensated cardiac beck. Home soon. Comment Review of Relevant I have reviewed the following items nolan (where applicable) has been applied. Labs Laboratory Tests Test 03/13/17 10:45 03/13/17 16:10 03/13/17 18:10 03/13/17 20:08 White Blood Count 7.9 x10^3/uL (4.0-11.0) Red Blood Count 4.50 x10^6/uL (3.50-5.40) Hemoglobin 12.0 g/dL (12.0-15.5) Hematocrit 37.6 % (36.0-47.0) Mean Corpuscular Volume 84 fL (79-100) Mean Corpuscular Hemoglobin 27 pg (25-35) Mean Corpuscular Hemoglobin Concent 32 g/dL (31-37) Red Cell Distribution Width 16.6 % (11.5-14.5) Platelet Count 373 x10^3/uL (140-400) Neutrophils (%) (Auto) 81 % (31-73) Lymphocytes (%) (Auto) 12 % (24-48) Monocytes (%) (Auto) 6 % (0-9) Eosinophils (%) (Auto) 0 % (0-3) Basophils (%) (Auto) 1 % (0-3) Neutrophils # (Auto) 6.4 x10^3uL (1.8-7.7) Lymphocytes # (Auto) 1.0 x10^3/uL (1.0-4.8) Monocytes # (Auto) 0.5 x10^3/uL (0.0-1.1) Eosinophils # (Auto) 0.0 x10^3/uL (0.0-0.7) Basophils # (Auto) 0.1 x10^3/uL (0.0-0.2) Prothrombin Time 13.5 SEC (11.7-14.0) Prothromb Time International Ratio 1.1 (0.8-1.1) Activated Partial Thromboplast Time 33 SEC (24-38) Sodium Level 140 mmol/L (136-145) Potassium Level 3.7 mmol/L (3.5-5.1) Chloride Level 97 mmol/L (98-107) Carbon Dioxide Level 39 mmol/L (21-32) Anion Gap 4 (6-14) Blood Urea Nitrogen 6 mg/dL (7-20) Creatinine 0.7 mg/dL (0.6-1.0) Estimated GFR (Cockcroft-Gault) 102.3 Glucose Level 153 mg/dL (70-99) Calcium Level 9.4 mg/dL (8.5-10.1) Total Bilirubin 0.5 mg/dL (0.2-1.0) Direct Bilirubin 0.2 mg/dL (0.0-0.2) Aspartate Amino Transf (AST/SGOT) 15 U/L (15-37) Alanine Aminotransferase (ALT/SGPT) 18 U/L (14-59) Alkaline Phosphatase 99 U/L (46-116) Troponin I Quantitative 0.025 ng/mL (0.000-0.055) 0.024 ng/mL (0.000-0.055) FW-Iuh-P-Type Natriuretic Peptide 1816 pg/mL (0-124) Total Protein 8.7 g/dL (6.4-8.2) Albumin 3.4 g/dL (3.4-5.0) Lipase 73 U/L (73-393) Glucose (Fingerstick) 233 mg/dL (70-99) 55 mg/dL (70-99) Test 03/14/17 00:30 03/14/17 05:00 03/14/17 07:23 03/14/17 11:46 Troponin I Quantitative 0.029 ng/mL (0.000-0.055) White Blood Count 8.9 x10^3/uL (4.0-11.0) Red Blood Count 4.13 x10^6/uL (3.50-5.40) Hemoglobin 11.2 g/dL (12.0-15.5) Hematocrit 35.8 % (36.0-47.0) Mean Corpuscular Volume 87 fL (79-100) Mean Corpuscular Hemoglobin 27 pg (25-35) Mean Corpuscular Hemoglobin Concent 31 g/dL (31-37) Red Cell Distribution Width 16.7 % (11.5-14.5) Platelet Count 363 x10^3/uL (140-400) Neutrophils (%) (Auto) 68 % (31-73) Lymphocytes (%) (Auto) 24 % (24-48) Monocytes (%) (Auto) 7 % (0-9) Eosinophils (%) (Auto) 1 % (0-3) Basophils (%) (Auto) 0 % (0-3) Neutrophils # (Auto) 6.0 x10^3uL (1.8-7.7) Lymphocytes # (Auto) 2.1 x10^3/uL (1.0-4.8) Monocytes # (Auto) 0.6 x10^3/uL (0.0-1.1) Eosinophils # (Auto) 0.1 x10^3/uL (0.0-0.7) Basophils # (Auto) 0.0 x10^3/uL (0.0-0.2) Sodium Level 142 mmol/L (136-145) Potassium Level 3.8 mmol/L (3.5-5.1) Chloride Level 100 mmol/L (98-107) Carbon Dioxide Level 37 mmol/L (21-32) Anion Gap 5 (6-14) Blood Urea Nitrogen 14 mg/dL (7-20) Creatinine 1.3 mg/dL (0.6-1.0) Estimated GFR (Cockcroft-Gault) 50.1 Glucose Level 140 mg/dL (70-99) Calcium Level 9.1 mg/dL (8.5-10.1) Glucose (Fingerstick) 118 mg/dL (70-99) 79 mg/dL (70-99) Laboratory Tests Test 03/13/17 16:10 03/13/17 18:10 03/13/17 20:08 03/14/17 00:30 Glucose (Fingerstick) 233 mg/dL (70-99) 55 mg/dL (70-99) Troponin I Quantitative 0.024 ng/mL (0.000-0.055) 0.029 ng/mL (0.000-0.055) Test 03/14/17 05:00 03/14/17 07:23 03/14/17 11:46 White Blood Count 8.9 x10^3/uL (4.0-11.0) Red Blood Count 4.13 x10^6/uL (3.50-5.40) Hemoglobin 11.2 g/dL (12.0-15.5) Hematocrit 35.8 % (36.0-47.0) Mean Corpuscular Volume 87 fL (79-100) Mean Corpuscular Hemoglobin 27 pg (25-35) Mean Corpuscular Hemoglobin Concent 31 g/dL (31-37) Red Cell Distribution Width 16.7 % (11.5-14.5) Platelet Count 363 x10^3/uL (140-400) Neutrophils (%) (Auto) 68 % (31-73) Lymphocytes (%) (Auto) 24 % (24-48) Monocytes (%) (Auto) 7 % (0-9) Eosinophils (%) (Auto) 1 % (0-3) Basophils (%) (Auto) 0 % (0-3) Neutrophils # (Auto) 6.0 x10^3uL (1.8-7.7) Lymphocytes # (Auto) 2.1 x10^3/uL (1.0-4.8) Monocytes # (Auto) 0.6 x10^3/uL (0.0-1.1) Eosinophils # (Auto) 0.1 x10^3/uL (0.0-0.7) Basophils # (Auto) 0.0 x10^3/uL (0.0-0.2) Sodium Level 142 mmol/L (136-145) Potassium Level 3.8 mmol/L (3.5-5.1) Chloride Level 100 mmol/L (98-107) Carbon Dioxide Level 37 mmol/L (21-32) Anion Gap 5 (6-14) Blood Urea Nitrogen 14 mg/dL (7-20) Creatinine 1.3 mg/dL (0.6-1.0) Estimated GFR (Cockcroft-Gault) 50.1 Glucose Level 140 mg/dL (70-99) Calcium Level 9.1 mg/dL (8.5-10.1) Glucose (Fingerstick) 118 mg/dL (70-99) 79 mg/dL (70-99) Medications Current Medications Hydromorphone HCl (Dilaudid) 0.5 mg PRN Q30MIN PRN IV SEVERE PAIN Last administered on 03/13/17 12:26; Start 03/13/17 at 10:30 Ondansetron HCl (Zofran) 4 mg 1X ONCE IV Last administered on 03/13/17 11:13 ; Start 03/13/17 at 10:30; Stop 03/13/17 at 10:31; Status DC Ondansetron HCl (Zofran) 4 mg PRN Q8HRS PRN IV NAUSEA/VOMITING; Start at 12:30; Stop 03/13/17 at 13:20; Status DC Morphine Sulfate 2 mg PRN Q2HR PRN IV PAIN; Start 03/13/17 at 12:30; Stop at 12:29; Status DC Labetalol HCl (Normodyne) 20 mg 1X ONCE IVP ; Start 03/13/17 at 13:15; Stop 03/13/17 at 13:16; Status DC Ondansetron HCl (Zofran) 4 mg PRN Q6HRS PRN IV NAUSEA/VOMITING; Start at 13:30 Labetalol HCl (Normodyne) 20 mg PRN Q2HR PRN IVP HYPERTENSION, SEE COMMENTS Last administered on 03/13/17 15:19; Start 03/13/17 at 13:30 Acetaminophen (Tylenol) 650 mg PRN Q6HRS PRN PO fever Last administered on 08:12; Start 03/13/17 at 13:30 Aspirin (Ecotrin) 81 mg DAILY PO Last administered on 03/14/17 08:14; Start 03/13/17 at 14:00 Atorvastatin Calcium (Lipitor) 20 mg HS PO Last administered on 03/13/17 20: 56; Start 03/13/17 at 21:00 Clopidogrel Bisulfate (Plavix) 75 mg DAILY PO Last administered on 03/14/17 08:14; Start 03/13/17 at 13:00 Ergocalciferol (Vitamin D2) 50,000 unit Mo PO ; Start 03/17/17 at 09:00 Famotidine (Pepcid) 20 mg BID PO Last administered on 03/14/17 08:14; Start 03/13/17 at 21:00 Ferrous Sulfate (Feosol) 325 mg DAILY08 PO Last administered on 03/14/17 08: 15; Start 03/13/17 at 14:00 Furosemide (Lasix) 80 mg BID92 PO Last administered on 03/14/17 13:31; Start 03/13/17 at 14:00 Insulin Aspart (NovoLOG) 20 units TIDWMEALS SQ Last administered on 03/14/17 08:28; Start 03/13/17 at 17:00 Insulin Detemir (Levemir) 32 units BID SQ Last administered on 03/14/17 08:30 ; Start 03/13/17 at 21:00 Metoprolol Tartrate (Lopressor) 50 mg BID PO Last administered on 03/14/17 08 :13; Start 03/13/17 at 14:00 Oxycodone/ Acetaminophen (Percocet 10/325) 1 tab PRN QID PRN PO PAIN Last administered on 03/14/17 08:13; Start 03/13/17 at 13:30 Oxycodone/ Acetaminophen (Percocet 10/325) 2 tab PRN Q6HRS PRN PO PAIN Last administered on 03/14/17 13:30; Start 03/13/17 at 13:30 Vitamin B Complex (Vishnu B) 1 tab DAILY PO Last administered on 03/14/17 08:14 ; Start 03/13/17 at 14:00 Losartan Potassium (Cozaar) 100 mg DAILY PO Last administered on 03/14/17 08: 14; Start 03/13/17 at 14:00 Potassium Chloride (Klor-Con) 10 meq BIDWMEALS PO Last administered on 08:19; Start 03/14/17 at 08:00 Nitroglycerin (Nitrostat) 0.4 mg PRN Q5MIN PRN SL CHEST PAIN; Start 03/13/17 at 13:30 Insulin Aspart (NovoLOG) 0-9 UNITS TIDWMEALS SQ Last administered on 17:20; Start 03/13/17 at 17:00 Dextrose (Dextrose 50%-Water Syringe) 12.5 gm PRN Q15MIN PRN IV SEE COMMENTS; Start 03/13/17 at 13:30 Active Scripts Active B Complex (Vitamin B Complex) 1 Each Tablet 1 Each PO DAILY Percocet 10-325 Mg Tablet (Oxycodone/Acetaminophen) 1 Each Tablet 2 Tab PO PRN Q6HRS PRN Vitamin D2 (Ergocalciferol (Vitamin D2)) 50,000 Unit Capsule 50,000 Unit PO WEEKLY Losartan Potassium 100 Mg Tablet 100 Mg PO DAILY 60 Days Percocet 10-325 Mg Tablet (Oxycodone/Acetaminophen) 1 Each Tablet 1 Tab PO Q6- 8HRS PRN Lasix (Furosemide) 80 Mg Tablet 1 Tab PO BID Reported Metoprolol Tartrate 50 Mg Tablet 1 Tab PO BID Ferrous Sulfate 325 Mg Tablet 1 Tab PO DAILY NITROGLYCERIN SubLingual (Nitroglycerin) 0.4 Mg Tab.subl 0.4 Mg SL PRN Q5MIN PRN Levemir Flextouch (Insulin Detemir) 100 Unit/1 Ml Insuln.pen 32 Unit SQ BID Novolog Flexpen (Insulin Aspart) 100 Unit/1 Ml Insuln.pen 20 Unit SQ TIDWMEALS Atorvastatin Calcium 20 Mg Tablet 20 Mg PO HS Potassium Chloride 10 Meq Capsule.er 10 Meq PO BID Aspir 81 (Aspirin) 81 Mg Tablet. 1 Tab PO DAILY Clopidogrel (Clopidogrel Bisulfate) 75 Mg Tablet 1 Tab PO DAILY Famotidine 20 Mg Tablet 20 Mg PO BID Vitals/I & O Vital Sign - Last 24 Hours 03/13/17 03/13/17 03/13/17 03/13/17 19:00 19:50 20:56 20:56 Temp 97.8 97.8 Pulse 60 60 Resp 18 20 B/P (MAP) 120/57 (78) 120/57 Pulse Ox 95 O2 Delivery Nasal Cannula Nasal Cannula Nasal Cannula O2 Flow Rate 2.0 2.0 03/13/17 03/14/17 03/14/17 03/14/17 22:31 03:00 04:10 07:00 Temp 98.6 98.1 97.7 98.6 98.1 97.7 Pulse 59 75 60 Resp 19 19 20 20 B/P (MAP) 107/64 (78) 134/89 (104) 134/56 (82) Pulse Ox 96 94 95 O2 Delivery Nasal Cannula Nasal Cannula Nasal Cannula Nasal Cannula O2 Flow Rate 2.0 2.0 2.0 03/14/17 03/14/17 03/14/17 03/14/17 07:42 08:13 08:13 08:14 Pulse 60 60 B/P (MAP) 134/56 134/56 Pulse Ox 95 O2 Delivery Nasal Cannula Nasal Cannula O2 Flow Rate 2.0 2.0 03/14/17 03/14/17 03/14/17 08:31 11:00 15:00 Temp 97.8 97.8 97.8 97.8 Pulse 60 62 Resp 20 20 B/P (MAP) 122/42 (68) 127/46 (73) Pulse Ox 95 96 96 O2 Delivery Nasal Cannula Nasal Cannula Nasal Cannula O2 Flow Rate 2.0 2.0 2.0 Intake and Output 03/13/17 03/13/17 03/14/17 15:00 23:00 07:00 Intake Total 240 ml 1200 ml Balance 240 ml 1200 ml LIZBET LINDSAY MD Mar 14, 2017 15:41
[2017-03-14 19:40] VITALS: BP 148/57
[2017-03-14] MEDS: ATORVASTATIN CALCIUM 20 MG TABLET PO SCH (20:56)
[2017-03-15] VITALS (7 sets, daily range): BP systolic 112–159; BP diastolic 43–66
[2017-03-15] MEDS: oxyCODONE/APAP 10/325 1 TAB TABLET PO PRN ×3 (05:00→18:21)
[2017-03-15 05:26] LABS: BASO % 0 % (0-3); EOS % 2 % (0-3); HEMOGLOBIN 11.2 g/dL (12.0-15.5); LYMPH # 1.5 x10^3/uL (1.0-4.8); LYMPH % 20 % (24-48); MEAN CORPUSCULAR HEMOGLOBIN 27 pg (25-35); MEAN CORPUSCULAR HGB CONC 31 g/dL (31-37); MEAN CORPUSCULAR VOLUME 87 fL (79-100); MONO % 8 % (0-9); NEUT % 71 % (31-73); PLATELET COUNT 331 x10^3/uL (140-400); RED BLOOD COUNT 4.16 x10^6/uL (3.50-5.40); RED CELL DISTRIBUTION WIDTH 16.4 % (11.5-14.5); WHITE BLOOD COUNT 7.4 x10^3/uL (4.0-11.0)
[2017-03-15 05:40] LABS: CALCIUM 9.2 mg/dL (8.5-10.1); CREATININE 0.9 mg/dL (0.6-1.0); GFR 76.5; POTASSIUM 4.3 mmol/L (3.5-5.1)
[2017-03-15] MEDS: INSULIN ASPART 300 UNITS/3 ML INSULN.PEN SQ SCH ×6 (08:00→17:17)
[2017-03-15] MEDS: ASPIRIN ENTERIC COATED 81 MG TABLET.DR. PO SCH (08:44)
[2017-03-15] MEDS: VITAMIN B COMPLEX TABLET. PO SCH (08:44)
[2017-03-15] MEDS: METOPROLOL TART IMMED RELEASE 50 MG TABLET. PO SCH ×2 (08:45→21:00)
[2017-03-15] MEDS: POTASSIUM CHLORIDE 10 MEQ TABLET.ER. PO SCH ×2 (08:45→17:13)
[2017-03-15] MEDS: FERROUS SULFATE 325 MG TABLET. PO SCH (08:45)
[2017-03-15] MEDS: FAMOTIDINE 20 MG TABLET. PO SCH ×2 (08:45→20:39)
[2017-03-15] MEDS: CLOPIDOGREL BISULFATE 75 MG TABLET PO SCH (08:45)
[2017-03-15] MEDS: FUROSEMIDE 80 MG TABLET. PO SCH ×2 (08:45→14:14)
[2017-03-15] MEDS: LOSARTAN POTASSIUM 50 MG TABLET. PO SCH (08:45)
[2017-03-15] MEDS: INSULIN DETEMIR 300 UNITS/3 ML INSULN.PEN. SQ SCH ×2 (08:57→20:46)
--- NOTE | 2017-03-15 10:28 | PDOC ---
PROGRESS NOTES Chief Complaint Chief Complaint Chest pain around the site of pacemaker HTN History of Present Illness History of Present Illness Patient seen at bedside Chest pain improving HTN from when she was admitted has resolved VSS Patient still has chest pain Vitals Vitals Vital Signs Date Time Temp Pulse Resp B/P (MAP) Pulse Ox O2 Delivery O2 Flow Rate FiO2 03/15/17 08:45 60 142/55 03/15/17 07:45 97.7 17 98 Nasal Cannula 2.0 97.7 Physical Exam General: Alert, Oriented X3, Cooperative Heart: Regular rate, Normal S1, Normal S2 Lungs: Clear Abdomen: Normal bowel sounds, Soft Extremities: No edema Skin: No rashes, No breakdown, No significant lesion Labs LABS Laboratory Tests Test 03/14/17 11:46 03/14/17 16:03 03/14/17 20:52 03/15/17 04:50 Glucose (Fingerstick) 79 mg/dL (70-99) 140 mg/dL (70-99) 146 mg/dL (70-99) White Blood Count 7.4 x10^3/uL (4.0-11.0) Red Blood Count 4.16 x10^6/uL (3.50-5.40) Hemoglobin 11.2 g/dL (12.0-15.5) Hematocrit 36.0 % (36.0-47.0) Mean Corpuscular Volume 87 fL (79-100) Mean Corpuscular Hemoglobin 27 pg (25-35) Mean Corpuscular Hemoglobin Concent 31 g/dL (31-37) Red Cell Distribution Width 16.4 % (11.5-14.5) Platelet Count 331 x10^3/uL (140-400) Neutrophils (%) (Auto) 71 % (31-73) Lymphocytes (%) (Auto) 20 % (24-48) Monocytes (%) (Auto) 8 % (0-9) Eosinophils (%) (Auto) 2 % (0-3) Basophils (%) (Auto) 0 % (0-3) Neutrophils # (Auto) 5.2 x10^3uL (1.8-7.7) Lymphocytes # (Auto) 1.5 x10^3/uL (1.0-4.8) Monocytes # (Auto) 0.6 x10^3/uL (0.0-1.1) Eosinophils # (Auto) 0.1 x10^3/uL (0.0-0.7) Basophils # (Auto) 0.0 x10^3/uL (0.0-0.2) Sodium Level 141 mmol/L (136-145) Potassium Level 4.3 mmol/L (3.5-5.1) Chloride Level 99 mmol/L (98-107) Carbon Dioxide Level 42 mmol/L (21-32) Anion Gap 0 (6-14) Blood Urea Nitrogen 15 mg/dL (7-20) Creatinine 0.9 mg/dL (0.6-1.0) Estimated GFR (Cockcroft-Gault) 76.5 Glucose Level 108 mg/dL (70-99) Calcium Level 9.2 mg/dL (8.5-10.1) Test 03/15/17 07:19 Glucose (Fingerstick) 141 mg/dL (70-99) Review of Systems Review of Systems Denies abdominal pain Denies dyspnea or SOA Continues to complain of chest pain Assessment and Plan Assessmemt and Plan Assessment Chest pain around the site of pacemaker HTN Plan Continue home meds PT/OT Discharge disposition pending Appreciate subspecialty Problems: Comment Review of Relevant I have reviewed the following items nolan (where applicable) has been applied. Labs Laboratory Tests Test 03/13/17 10:45 03/13/17 16:10 03/13/17 18:10 03/13/17 20:08 White Blood Count 7.9 x10^3/uL (4.0-11.0) Red Blood Count 4.50 x10^6/uL (3.50-5.40) Hemoglobin 12.0 g/dL (12.0-15.5) Hematocrit 37.6 % (36.0-47.0) Mean Corpuscular Volume 84 fL (79-100) Mean Corpuscular Hemoglobin 27 pg (25-35) Mean Corpuscular Hemoglobin Concent 32 g/dL (31-37) Red Cell Distribution Width 16.6 % (11.5-14.5) Platelet Count 373 x10^3/uL (140-400) Neutrophils (%) (Auto) 81 % (31-73) Lymphocytes (%) (Auto) 12 % (24-48) Monocytes (%) (Auto) 6 % (0-9) Eosinophils (%) (Auto) 0 % (0-3) Basophils (%) (Auto) 1 % (0-3) Neutrophils # (Auto) 6.4 x10^3uL (1.8-7.7) Lymphocytes # (Auto) 1.0 x10^3/uL (1.0-4.8) Monocytes # (Auto) 0.5 x10^3/uL (0.0-1.1) Eosinophils # (Auto) 0.0 x10^3/uL (0.0-0.7) Basophils # (Auto) 0.1 x10^3/uL (0.0-0.2) Prothrombin Time 13.5 SEC (11.7-14.0) Prothromb Time International Ratio 1.1 (0.8-1.1) Activated Partial Thromboplast Time 33 SEC (24-38) Sodium Level 140 mmol/L (136-145) Potassium Level 3.7 mmol/L (3.5-5.1) Chloride Level 97 mmol/L (98-107) Carbon Dioxide Level 39 mmol/L (21-32) Anion Gap 4 (6-14) Blood Urea Nitrogen 6 mg/dL (7-20) Creatinine 0.7 mg/dL (0.6-1.0) Estimated GFR (Cockcroft-Gault) 102.3 Glucose Level 153 mg/dL (70-99) Calcium Level 9.4 mg/dL (8.5-10.1) Total Bilirubin 0.5 mg/dL (0.2-1.0) Direct Bilirubin 0.2 mg/dL (0.0-0.2) Aspartate Amino Transf (AST/SGOT) 15 U/L (15-37) Alanine Aminotransferase (ALT/SGPT) 18 U/L (14-59) Alkaline Phosphatase 99 U/L (46-116) Troponin I Quantitative 0.025 ng/mL (0.000-0.055) 0.024 ng/mL (0.000-0.055) MH-Bsf-Y-Type Natriuretic Peptide 1816 pg/mL (0-124) Total Protein 8.7 g/dL (6.4-8.2) Albumin 3.4 g/dL (3.4-5.0) Lipase 73 U/L (73-393) Glucose (Fingerstick) 233 mg/dL (70-99) 55 mg/dL (70-99) Test 03/14/17 00:30 03/14/17 05:00 03/14/17 07:23 03/14/17 11:46 Troponin I Quantitative 0.029 ng/mL (0.000-0.055) White Blood Count 8.9 x10^3/uL (4.0-11.0) Red Blood Count 4.13 x10^6/uL (3.50-5.40) Hemoglobin 11.2 g/dL (12.0-15.5) Hematocrit 35.8 % (36.0-47.0) Mean Corpuscular Volume 87 fL (79-100) Mean Corpuscular Hemoglobin 27 pg (25-35) Mean Corpuscular Hemoglobin Concent 31 g/dL (31-37) Red Cell Distribution Width 16.7 % (11.5-14.5) Platelet Count 363 x10^3/uL (140-400) Neutrophils (%) (Auto) 68 % (31-73) Lymphocytes (%) (Auto) 24 % (24-48) Monocytes (%) (Auto) 7 % (0-9) Eosinophils (%) (Auto) 1 % (0-3) Basophils (%) (Auto) 0 % (0-3) Neutrophils # (Auto) 6.0 x10^3uL (1.8-7.7) Lymphocytes # (Auto) 2.1 x10^3/uL (1.0-4.8) Monocytes # (Auto) 0.6 x10^3/uL (0.0-1.1) Eosinophils # (Auto) 0.1 x10^3/uL (0.0-0.7) Basophils # (Auto) 0.0 x10^3/uL (0.0-0.2) Sodium Level 142 mmol/L (136-145) Potassium Level 3.8 mmol/L (3.5-5.1) Chloride Level 100 mmol/L (98-107) Carbon Dioxide Level 37 mmol/L (21-32) Anion Gap 5 (6-14) Blood Urea Nitrogen 14 mg/dL (7-20) Creatinine 1.3 mg/dL (0.6-1.0) Estimated GFR (Cockcroft-Gault) 50.1 Glucose Level 140 mg/dL (70-99) Calcium Level 9.1 mg/dL (8.5-10.1) Glucose (Fingerstick) 118 mg/dL (70-99) 79 mg/dL (70-99) Test 03/14/17 16:03 03/14/17 20:52 03/15/17 04:50 03/15/17 07:19 Glucose (Fingerstick) 140 mg/dL (70-99) 146 mg/dL (70-99) 141 mg/dL (70-99) White Blood Count 7.4 x10^3/uL (4.0-11.0) Red Blood Count 4.16 x10^6/uL (3.50-5.40) Hemoglobin 11.2 g/dL (12.0-15.5) Hematocrit 36.0 % (36.0-47.0) Mean Corpuscular Volume 87 fL (79-100) Mean Corpuscular Hemoglobin 27 pg (25-35) Mean Corpuscular Hemoglobin Concent 31 g/dL (31-37) Red Cell Distribution Width 16.4 % (11.5-14.5) Platelet Count 331 x10^3/uL (140-400) Neutrophils (%) (Auto) 71 % (31-73) Lymphocytes (%) (Auto) 20 % (24-48) Monocytes (%) (Auto) 8 % (0-9) Eosinophils (%) (Auto) 2 % (0-3) Basophils (%) (Auto) 0 % (0-3) Neutrophils # (Auto) 5.2 x10^3uL (1.8-7.7) Lymphocytes # (Auto) 1.5 x10^3/uL (1.0-4.8) Monocytes # (Auto) 0.6 x10^3/uL (0.0-1.1) Eosinophils # (Auto) 0.1 x10^3/uL (0.0-0.7) Basophils # (Auto) 0.0 x10^3/uL (0.0-0.2) Sodium Level 141 mmol/L (136-145) Potassium Level 4.3 mmol/L (3.5-5.1) Chloride Level 99 mmol/L (98-107) Carbon Dioxide Level 42 mmol/L (21-32) Anion Gap 0 (6-14) Blood Urea Nitrogen 15 mg/dL (7-20) Creatinine 0.9 mg/dL (0.6-1.0) Estimated GFR (Cockcroft-Gault) 76.5 Glucose Level 108 mg/dL (70-99) Calcium Level 9.2 mg/dL (8.5-10.1) Laboratory Tests Test 03/14/17 11:46 03/14/17 16:03 03/14/17 20:52 03/15/17 04:50 Glucose (Fingerstick) 79 mg/dL (70-99) 140 mg/dL (70-99) 146 mg/dL (70-99) White Blood Count 7.4 x10^3/uL (4.0-11.0) Red Blood Count 4.16 x10^6/uL (3.50-5.40) Hemoglobin 11.2 g/dL (12.0-15.5) Hematocrit 36.0 % (36.0-47.0) Mean Corpuscular Volume 87 fL (79-100) Mean Corpuscular Hemoglobin 27 pg (25-35) Mean Corpuscular Hemoglobin Concent 31 g/dL (31-37) Red Cell Distribution Width 16.4 % (11.5-14.5) Platelet Count 331 x10^3/uL (140-400) Neutrophils (%) (Auto) 71 % (31-73) Lymphocytes (%) (Auto) 20 % (24-48) Monocytes (%) (Auto) 8 % (0-9) Eosinophils (%) (Auto) 2 % (0-3) Basophils (%) (Auto) 0 % (0-3) Neutrophils # (Auto) 5.2 x10^3uL (1.8-7.7) Lymphocytes # (Auto) 1.5 x10^3/uL (1.0-4.8) Monocytes # (Auto) 0.6 x10^3/uL (0.0-1.1) Eosinophils # (Auto) 0.1 x10^3/uL (0.0-0.7) Basophils # (Auto) 0.0 x10^3/uL (0.0-0.2) Sodium Level 141 mmol/L (136-145) Potassium Level 4.3 mmol/L (3.5-5.1) Chloride Level 99 mmol/L (98-107) Carbon Dioxide Level 42 mmol/L (21-32) Anion Gap 0 (6-14) Blood Urea Nitrogen 15 mg/dL (7-20) Creatinine 0.9 mg/dL (0.6-1.0) Estimated GFR (Cockcroft-Gault) 76.5 Glucose Level 108 mg/dL (70-99) Calcium Level 9.2 mg/dL (8.5-10.1) Test 03/15/17 07:19 Glucose (Fingerstick) 141 mg/dL (70-99) Medications Current Medications Hydromorphone HCl (Dilaudid) 0.5 mg PRN Q30MIN PRN IV SEVERE PAIN Last administered on 03/13/17 12:26; Start 03/13/17 at 10:30 Ondansetron HCl (Zofran) 4 mg 1X ONCE IV Last administered on 03/13/17 11:13 ; Start 03/13/17 at 10:30; Stop 03/13/17 at 10:31; Status DC Ondansetron HCl (Zofran) 4 mg PRN Q8HRS PRN IV NAUSEA/VOMITING; Start at 12:30; Stop 03/13/17 at 13:20; Status DC Morphine Sulfate 2 mg PRN Q2HR PRN IV PAIN; Start 03/13/17 at 12:30; Stop at 12:29; Status DC Labetalol HCl (Normodyne) 20 mg 1X ONCE IVP ; Start 03/13/17 at 13:15; Stop 03/13/17 at 13:16; Status DC Ondansetron HCl (Zofran) 4 mg PRN Q6HRS PRN IV NAUSEA/VOMITING; Start at 13:30 Labetalol HCl (Normodyne) 20 mg PRN Q2HR PRN IVP HYPERTENSION, SEE COMMENTS Last administered on 03/13/17 15:19; Start 03/13/17 at 13:30 Acetaminophen (Tylenol) 650 mg PRN Q6HRS PRN PO fever Last administered on 08:12; Start 03/13/17 at 13:30 Aspirin (Ecotrin) 81 mg DAILY PO Last administered on 03/15/17 08:44; Start 03/13/17 at 14:00 Atorvastatin Calcium (Lipitor) 20 mg HS PO Last administered on 03/14/17 20: 56; Start 03/13/17 at 21:00 Clopidogrel Bisulfate (Plavix) 75 mg DAILY PO Last administered on 03/15/17 08:45; Start 03/13/17 at 13:00 Ergocalciferol (Vitamin D2) 50,000 unit Mo PO ; Start 03/17/17 at 09:00 Famotidine (Pepcid) 20 mg BID PO Last administered on 03/15/17 08:45; Start 03/13/17 at 21:00 Ferrous Sulfate (Feosol) 325 mg DAILY08 PO Last administered on 03/15/17 08: 45; Start 03/13/17 at 14:00 Furosemide (Lasix) 80 mg BID92 PO Last administered on 03/15/17 08:45; Start 03/13/17 at 14:00 Insulin Aspart (NovoLOG) 20 units TIDWMEALS SQ Last administered on 03/15/17 08:56; Start 03/13/17 at 17:00 Insulin Detemir (Levemir) 32 units BID SQ Last administered on 03/15/17 08:57 ; Start 03/13/17 at 21:00 Metoprolol Tartrate (Lopressor) 50 mg BID PO Last administered on 03/15/17 08 :45; Start 03/13/17 at 14:00 Oxycodone/ Acetaminophen (Percocet 10/325) 1 tab PRN QID PRN PO PAIN Last administered on 03/14/17 08:13; Start 03/13/17 at 13:30 Oxycodone/ Acetaminophen (Percocet 10/325) 2 tab PRN Q6HRS PRN PO PAIN Last administered on 03/15/17 05:00; Start 03/13/17 at 13:30 Vitamin B Complex (Vishnu B) 1 tab DAILY PO Last administered on 03/15/17 08:44 ; Start 03/13/17 at 14:00 Losartan Potassium (Cozaar) 100 mg DAILY PO Last administered on 03/15/17 08: 45; Start 03/13/17 at 14:00 Potassium Chloride (Klor-Con) 10 meq BIDWMEALS PO Last administered on 08:45; Start 03/14/17 at 08:00 Nitroglycerin (Nitrostat) 0.4 mg PRN Q5MIN PRN SL CHEST PAIN; Start 03/13/17 at 13:30 Insulin Aspart (NovoLOG) 0-9 UNITS TIDWMEALS SQ Last administered on 17:20; Start 03/13/17 at 17:00 Dextrose (Dextrose 50%-Water Syringe) 12.5 gm PRN Q15MIN PRN IV SEE COMMENTS; Start 03/13/17 at 13:30 Active Scripts Active B Complex (Vitamin B Complex) 1 Each Tablet 1 Each PO DAILY Percocet 10-325 Mg Tablet (Oxycodone/Acetaminophen) 1 Each Tablet 2 Tab PO PRN Q6HRS PRN Vitamin D2 (Ergocalciferol (Vitamin D2)) 50,000 Unit Capsule 50,000 Unit PO WEEKLY Losartan Potassium 100 Mg Tablet 100 Mg PO DAILY 60 Days Percocet 10-325 Mg Tablet (Oxycodone/Acetaminophen) 1 Each Tablet 1 Tab PO Q6- 8HRS PRN Lasix (Furosemide) 80 Mg Tablet 1 Tab PO BID Reported Metoprolol Tartrate 50 Mg Tablet 1 Tab PO BID Ferrous Sulfate 325 Mg Tablet 1 Tab PO DAILY NITROGLYCERIN SubLingual (Nitroglycerin) 0.4 Mg Tab.subl 0.4 Mg SL PRN Q5MIN PRN Levemir Flextouch (Insulin Detemir) 100 Unit/1 Ml Insuln.pen 32 Unit SQ BID Novolog Flexpen (Insulin Aspart) 100 Unit/1 Ml Insuln.pen 20 Unit SQ TIDWMEALS Atorvastatin Calcium 20 Mg Tablet 20 Mg PO HS Potassium Chloride 10 Meq Capsule.er 10 Meq PO BID Aspir 81 (Aspirin) 81 Mg Tablet. 1 Tab PO DAILY Clopidogrel (Clopidogrel Bisulfate) 75 Mg Tablet 1 Tab PO DAILY Famotidine 20 Mg Tablet 20 Mg PO BID Vitals/I & O Vital Sign - Last 24 Hours 03/14/17 03/14/17 03/14/17 03/14/17 11:00 15:00 19:40 20:00 Temp 97.8 97.8 98.1 97.8 97.8 98.1 Pulse 60 62 61 Resp 20 20 18 B/P (MAP) 122/42 (68) 127/46 (73) 148/57 (87) Pulse Ox 96 96 99 O2 Delivery Nasal Cannula Nasal Cannula Nasal Cannula Nasal Cannula O2 Flow Rate 2.0 2.0 2.0 2.0 03/14/17 03/14/17 03/14/17 03/15/17 20:54 20:56 23:59 00:39 Temp 97.6 97.6 Pulse 61 60 Resp 18 18 B/P (MAP) 148/57 138/66 (90) Pulse Ox 99 95 O2 Delivery Nasal Cannula Nasal Cannula Nasal Cannula O2 Flow Rate 2.0 2.0 03/15/17 03/15/17 03/15/17 03/15/17 03:50 05:00 06:00 07:45 Temp 97.7 97.7 97.7 97.7 Pulse 63 60 Resp 18 18 16 17 B/P (MAP) 145/66 (92) 142/55 (84) Pulse Ox 100 100 100 98 O2 Delivery Nasal Cannula Nasal Cannula Nasal Cannula Nasal Cannula O2 Flow Rate 2.0 2.0 2.0 2.0 03/15/17 03/15/17 08:45 08:45 Pulse 60 60 B/P (MAP) 142/55 142/55 Intake and Output 03/14/17 03/14/17 03/15/17 15:00 23:00 07:00 Intake Total 620 ml 1100 ml 600 ml Balance 620 ml 1100 ml 600 ml PERICO BUCHANAN III DO Mar 15, 2017 10:28
--- NOTE | 2017-03-15 14:57 | PDOC ---
PROGRESS NOTES Subjective Subjective Feels a little better. Very weak. No new cardiac complaints. Objective Objective Vital Signs Date Time Temp Pulse Resp B/P (MAP) Pulse Ox O2 Delivery O2 Flow Rate FiO2 03/15/17 12:11 Nasal Cannula 03/15/17 10:41 98.2 61 17 148/60 (89) 97 2.0 98.2 Intake and Output 03/15/17 07:00 Intake Total 2320 ml Balance 2320 ml Intake Oral 2320 ml # Voids 3 Physical Exam Physical Exam No significant changes in cardiac exam. Assessment Assessment Patient seems to be doing better. I agree with present plan. Home soon. Comment Review of Relevant I have reviewed the following items nolan (where applicable) has been applied. Labs Laboratory Tests Test 03/13/17 16:10 03/13/17 18:10 03/13/17 20:08 03/14/17 00:30 Glucose (Fingerstick) 233 mg/dL (70-99) 55 mg/dL (70-99) Troponin I Quantitative 0.024 ng/mL (0.000-0.055) 0.029 ng/mL (0.000-0.055) Test 03/14/17 05:00 03/14/17 07:23 03/14/17 11:46 03/14/17 16:03 White Blood Count 8.9 x10^3/uL (4.0-11.0) Red Blood Count 4.13 x10^6/uL (3.50-5.40) Hemoglobin 11.2 g/dL (12.0-15.5) Hematocrit 35.8 % (36.0-47.0) Mean Corpuscular Volume 87 fL (79-100) Mean Corpuscular Hemoglobin 27 pg (25-35) Mean Corpuscular Hemoglobin Concent 31 g/dL (31-37) Red Cell Distribution Width 16.7 % (11.5-14.5) Platelet Count 363 x10^3/uL (140-400) Neutrophils (%) (Auto) 68 % (31-73) Lymphocytes (%) (Auto) 24 % (24-48) Monocytes (%) (Auto) 7 % (0-9) Eosinophils (%) (Auto) 1 % (0-3) Basophils (%) (Auto) 0 % (0-3) Neutrophils # (Auto) 6.0 x10^3uL (1.8-7.7) Lymphocytes # (Auto) 2.1 x10^3/uL (1.0-4.8) Monocytes # (Auto) 0.6 x10^3/uL (0.0-1.1) Eosinophils # (Auto) 0.1 x10^3/uL (0.0-0.7) Basophils # (Auto) 0.0 x10^3/uL (0.0-0.2) Sodium Level 142 mmol/L (136-145) Potassium Level 3.8 mmol/L (3.5-5.1) Chloride Level 100 mmol/L (98-107) Carbon Dioxide Level 37 mmol/L (21-32) Anion Gap 5 (6-14) Blood Urea Nitrogen 14 mg/dL (7-20) Creatinine 1.3 mg/dL (0.6-1.0) Estimated GFR (Cockcroft-Gault) 50.1 Glucose Level 140 mg/dL (70-99) Calcium Level 9.1 mg/dL (8.5-10.1) Glucose (Fingerstick) 118 mg/dL (70-99) 79 mg/dL (70-99) 140 mg/dL (70-99) Test 03/14/17 20:52 03/15/17 04:50 03/15/17 07:19 Glucose (Fingerstick) 146 mg/dL (70-99) 141 mg/dL (70-99) White Blood Count 7.4 x10^3/uL (4.0-11.0) Red Blood Count 4.16 x10^6/uL (3.50-5.40) Hemoglobin 11.2 g/dL (12.0-15.5) Hematocrit 36.0 % (36.0-47.0) Mean Corpuscular Volume 87 fL (79-100) Mean Corpuscular Hemoglobin 27 pg (25-35) Mean Corpuscular Hemoglobin Concent 31 g/dL (31-37) Red Cell Distribution Width 16.4 % (11.5-14.5) Platelet Count 331 x10^3/uL (140-400) Neutrophils (%) (Auto) 71 % (31-73) Lymphocytes (%) (Auto) 20 % (24-48) Monocytes (%) (Auto) 8 % (0-9) Eosinophils (%) (Auto) 2 % (0-3) Basophils (%) (Auto) 0 % (0-3) Neutrophils # (Auto) 5.2 x10^3uL (1.8-7.7) Lymphocytes # (Auto) 1.5 x10^3/uL (1.0-4.8) Monocytes # (Auto) 0.6 x10^3/uL (0.0-1.1) Eosinophils # (Auto) 0.1 x10^3/uL (0.0-0.7) Basophils # (Auto) 0.0 x10^3/uL (0.0-0.2) Sodium Level 141 mmol/L (136-145) Potassium Level 4.3 mmol/L (3.5-5.1) Chloride Level 99 mmol/L (98-107) Carbon Dioxide Level 42 mmol/L (21-32) Anion Gap 0 (6-14) Blood Urea Nitrogen 15 mg/dL (7-20) Creatinine 0.9 mg/dL (0.6-1.0) Estimated GFR (Cockcroft-Gault) 76.5 Glucose Level 108 mg/dL (70-99) Calcium Level 9.2 mg/dL (8.5-10.1) Laboratory Tests Test 03/14/17 16:03 03/14/17 20:52 03/15/17 04:50 03/15/17 07:19 Glucose (Fingerstick) 140 mg/dL (70-99) 146 mg/dL (70-99) 141 mg/dL (70-99) White Blood Count 7.4 x10^3/uL (4.0-11.0) Red Blood Count 4.16 x10^6/uL (3.50-5.40) Hemoglobin 11.2 g/dL (12.0-15.5) Hematocrit 36.0 % (36.0-47.0) Mean Corpuscular Volume 87 fL (79-100) Mean Corpuscular Hemoglobin 27 pg (25-35) Mean Corpuscular Hemoglobin Concent 31 g/dL (31-37) Red Cell Distribution Width 16.4 % (11.5-14.5) Platelet Count 331 x10^3/uL (140-400) Neutrophils (%) (Auto) 71 % (31-73) Lymphocytes (%) (Auto) 20 % (24-48) Monocytes (%) (Auto) 8 % (0-9) Eosinophils (%) (Auto) 2 % (0-3) Basophils (%) (Auto) 0 % (0-3) Neutrophils # (Auto) 5.2 x10^3uL (1.8-7.7) Lymphocytes # (Auto) 1.5 x10^3/uL (1.0-4.8) Monocytes # (Auto) 0.6 x10^3/uL (0.0-1.1) Eosinophils # (Auto) 0.1 x10^3/uL (0.0-0.7) Basophils # (Auto) 0.0 x10^3/uL (0.0-0.2) Sodium Level 141 mmol/L (136-145) Potassium Level 4.3 mmol/L (3.5-5.1) Chloride Level 99 mmol/L (98-107) Carbon Dioxide Level 42 mmol/L (21-32) Anion Gap 0 (6-14) Blood Urea Nitrogen 15 mg/dL (7-20) Creatinine 0.9 mg/dL (0.6-1.0) Estimated GFR (Cockcroft-Gault) 76.5 Glucose Level 108 mg/dL (70-99) Calcium Level 9.2 mg/dL (8.5-10.1) Medications Current Medications Hydromorphone HCl (Dilaudid) 0.5 mg PRN Q30MIN PRN IV SEVERE PAIN Last administered on 03/13/17t 12:26; Start 03/13/17 at 10:30 Ondansetron HCl (Zofran) 4 mg 1X ONCE IV Last administered on 03/13/17t 11:13 ; Start 03/13/17 at 10:30; Stop 03/13/17 at 10:31; Status DC Ondansetron HCl (Zofran) 4 mg PRN Q8HRS PRN IV NAUSEA/VOMITING; Start at 12:30; Stop 03/13/17 at 13:20; Status DC Morphine Sulfate 2 mg PRN Q2HR PRN IV PAIN; Start 03/13/17 at 12:30; Stop at 12:29; Status DC Labetalol HCl (Normodyne) 20 mg 1X ONCE IVP ; Start 03/13/17 at 13:15; Stop 03/13/17 at 13:16; Status DC Ondansetron HCl (Zofran) 4 mg PRN Q6HRS PRN IV NAUSEA/VOMITING; Start at 13:30 Labetalol HCl (Normodyne) 20 mg PRN Q2HR PRN IVP HYPERTENSION, SEE COMMENTS Last administered on 03/13/17 15:19; Start 03/13/17 at 13:30 Acetaminophen (Tylenol) 650 mg PRN Q6HRS PRN PO fever Last administered on 08:12; Start 03/13/17 at 13:30 Aspirin (Ecotrin) 81 mg DAILY PO Last administered on 03/15/17 08:44; Start 03/13/17 at 14:00 Atorvastatin Calcium (Lipitor) 20 mg HS PO Last administered on 03/14/17 20: 56; Start 03/13/17 at 21:00 Clopidogrel Bisulfate (Plavix) 75 mg DAILY PO Last administered on 03/15/17 08:45; Start 03/13/17 at 13:00 Ergocalciferol (Vitamin D2) 50,000 unit Mo PO ; Start 03/17/17 at 09:00 Famotidine (Pepcid) 20 mg BID PO Last administered on 03/15/17 08:45; Start 03/13/17 at 21:00 Ferrous Sulfate (Feosol) 325 mg DAILY08 PO Last administered on 03/15/17 08: 45; Start 03/13/17 at 14:00 Furosemide (Lasix) 80 mg BID92 PO Last administered on 03/15/17 14:14; Start 03/13/17 at 14:00 Insulin Aspart (NovoLOG) 20 units TIDWMEALS SQ Last administered on 03/15/17 12:15; Start 03/13/17 at 17:00 Insulin Detemir (Levemir) 32 units BID SQ Last administered on 03/15/17 08:57 ; Start 03/13/17 at 21:00 Metoprolol Tartrate (Lopressor) 50 mg BID PO Last administered on 03/15/17 08 :45; Start 03/13/17 at 14:00 Oxycodone/ Acetaminophen (Percocet 10/325) 1 tab PRN QID PRN PO PAIN Last administered on 03/14/17 08:13; Start 03/13/17 at 13:30 Oxycodone/ Acetaminophen (Percocet 10/325) 2 tab PRN Q6HRS PRN PO PAIN Last administered on 03/15/17 12:11; Start 03/13/17 at 13:30 Vitamin B Complex (Vishnu B) 1 tab DAILY PO Last administered on 03/15/17 08:44 ; Start 03/13/17 at 14:00 Losartan Potassium (Cozaar) 100 mg DAILY PO Last administered on 03/15/17 08: 45; Start 03/13/17 at 14:00 Potassium Chloride (Klor-Con) 10 meq BIDWMEALS PO Last administered on 08:45; Start 03/14/17 at 08:00 Nitroglycerin (Nitrostat) 0.4 mg PRN Q5MIN PRN SL CHEST PAIN; Start 03/13/17 at 13:30 Insulin Aspart (NovoLOG) 0-9 UNITS TIDWMEALS SQ Last administered on 17:20; Start 03/13/17 at 17:00 Dextrose (Dextrose 50%-Water Syringe) 12.5 gm PRN Q15MIN PRN IV SEE COMMENTS; Start 03/13/17 at 13:30 Active Scripts Active B Complex (Vitamin B Complex) 1 Each Tablet 1 Each PO DAILY Percocet 10-325 Mg Tablet (Oxycodone/Acetaminophen) 1 Each Tablet 2 Tab PO PRN Q6HRS PRN Vitamin D2 (Ergocalciferol (Vitamin D2)) 50,000 Unit Capsule 50,000 Unit PO WEEKLY Losartan Potassium 100 Mg Tablet 100 Mg PO DAILY 60 Days Percocet 10-325 Mg Tablet (Oxycodone/Acetaminophen) 1 Each Tablet 1 Tab PO Q6- 8HRS PRN Lasix (Furosemide) 80 Mg Tablet 1 Tab PO BID Reported Metoprolol Tartrate 50 Mg Tablet 1 Tab PO BID Ferrous Sulfate 325 Mg Tablet 1 Tab PO DAILY NITROGLYCERIN SubLingual (Nitroglycerin) 0.4 Mg Tab.subl 0.4 Mg SL PRN Q5MIN PRN Levemir Flextouch (Insulin Detemir) 100 Unit/1 Ml Insuln.pen 32 Unit SQ BID Novolog Flexpen (Insulin Aspart) 100 Unit/1 Ml Insuln.pen 20 Unit SQ TIDWMEALS Atorvastatin Calcium 20 Mg Tablet 20 Mg PO HS Potassium Chloride 10 Meq Capsule.er 10 Meq PO BID Aspir 81 (Aspirin) 81 Mg Tablet. 1 Tab PO DAILY Clopidogrel (Clopidogrel Bisulfate) 75 Mg Tablet 1 Tab PO DAILY Famotidine 20 Mg Tablet 20 Mg PO BID Vitals/I & O Vital Sign - Last 24 Hours 03/14/17 03/14/17 03/14/17 03/14/17 15:00 19:40 20:00 20:54 Temp 97.8 98.1 97.8 98.1 Pulse 62 61 Resp 20 18 18 B/P (MAP) 127/46 (73) 148/57 (87) Pulse Ox 96 99 99 O2 Delivery Nasal Cannula Nasal Cannula Nasal Cannula Nasal Cannula O2 Flow Rate 2.0 2.0 2.0 2.0 03/14/17 03/14/17 03/15/17 03/15/17 20:56 23:59 00:39 03:50 Temp 97.6 97.7 97.6 97.7 Pulse 61 60 63 Resp 18 18 B/P (MAP) 148/57 138/66 (90) 145/66 (92) Pulse Ox 95 100 O2 Delivery Nasal Cannula Nasal Cannula Nasal Cannula O2 Flow Rate 2.0 2.0 03/15/17 03/15/17 03/15/17 03/15/17 05:00 06:00 07:45 08:45 Temp 97.7 97.7 Pulse 60 60 Resp 18 16 17 B/P (MAP) 142/55 (84) 142/55 Pulse Ox 100 100 98 O2 Delivery Nasal Cannula Nasal Cannula Nasal Cannula O2 Flow Rate 2.0 2.0 2.0 03/15/17 03/15/17 03/15/17 03/15/17 08:45 09:00 10:41 12:11 Temp 98.2 98.2 Pulse 60 61 Resp 17 B/P (MAP) 142/55 148/60 (89) Pulse Ox 97 O2 Delivery Nasal Cannula Nasal Cannula Nasal Cannula O2 Flow Rate 2.0 2.0 Intake and Output 03/14/17 03/14/17 03/15/17 15:00 23:00 07:00 Intake Total 620 ml 1100 ml 600 ml Balance 620 ml 1100 ml 600 ml LIZBET LINDSAY MD 23, 2017 14:57
[2017-03-15] MEDS: ATORVASTATIN CALCIUM 20 MG TABLET PO SCH (20:39)
[2017-03-16] MEDS: oxyCODONE/APAP 10/325 1 TAB TABLET PO PRN ×4 (00:22→20:22)
[2017-03-16 03:45] VITALS: BP 151/52
[2017-03-16 06:38] LABS: CALCIUM 9.5 mg/dL (8.5-10.1); CREATININE 1.1 mg/dL (0.6-1.0); GFR 60.7; POTASSIUM 4.1 mmol/L (3.5-5.1)
[2017-03-16 07:00] VITALS: BP 170/51
[2017-03-16 07:09] LABS: BASO % 0 % (0-3); EOS % 1 % (0-3); HEMATOCRIT 35.8 % (36.0-47.0); HEMOGLOBIN 11.2 g/dL (12.0-15.5); LYMPH # 1.7 x10^3/uL (1.0-4.8); LYMPH % 22 % (24-48); MEAN CORPUSCULAR HEMOGLOBIN 27 pg (25-35); MEAN CORPUSCULAR HGB CONC 31 g/dL (31-37); MEAN CORPUSCULAR VOLUME 85 fL (79-100); MONO % 9 % (0-9); NEUT % 68 % (31-73); PLATELET COUNT 332 x10^3/uL (140-400); RED BLOOD COUNT 4.23 x10^6/uL (3.50-5.40); WHITE BLOOD COUNT 7.8 x10^3/uL (4.0-11.0)
[2017-03-16] MEDS: INSULIN ASPART 300 UNITS/3 ML INSULN.PEN SQ SCH ×6 (08:00→17:34)
[2017-03-16] MEDS: ASPIRIN ENTERIC COATED 81 MG TABLET.DR. PO SCH (09:01)
[2017-03-16] MEDS: FUROSEMIDE 80 MG TABLET. PO SCH ×2 (09:01→14:20)
[2017-03-16] MEDS: VITAMIN B COMPLEX TABLET. PO SCH (09:01)
[2017-03-16] MEDS: POTASSIUM CHLORIDE 10 MEQ TABLET.ER. PO SCH ×2 (09:02→17:31)
[2017-03-16] MEDS: CLOPIDOGREL BISULFATE 75 MG TABLET PO SCH (09:02)
[2017-03-16] MEDS: FERROUS SULFATE 325 MG TABLET. PO SCH (09:02)
[2017-03-16] MEDS: LOSARTAN POTASSIUM 50 MG TABLET. PO SCH (09:02)
[2017-03-16] MEDS: FAMOTIDINE 20 MG TABLET. PO SCH ×2 (09:02→20:21)
[2017-03-16] MEDS: METOPROLOL TART IMMED RELEASE 50 MG TABLET. PO SCH ×2 (09:03→20:21)
[2017-03-16] MEDS: INSULIN DETEMIR 300 UNITS/3 ML INSULN.PEN. SQ SCH ×2 (09:07→20:27)
[2017-03-16 11:05] VITALS: BP 152/50
--- NOTE | 2017-03-16 12:33 | PDOC ---
PROGRESS NOTES Chief Complaint Chief Complaint Chest pain around the site of pacemaker HTN History of Present Illness History of Present Illness Patient seen at bedside Chest pain improving HTN from when she was admitted has resolved VSS Patient still has chest pain Vitals Vitals Vital Signs Date Time Temp Pulse Resp B/P (MAP) Pulse Ox O2 Delivery O2 Flow Rate FiO2 03/16/17 11:05 97.8 60 20 152/50 (84) 96 Nasal Cannula 2.0 97.8 Physical Exam General: Alert, Oriented X3, Cooperative Heart: Regular rate, Normal S1, Normal S2 Lungs: Clear Abdomen: Normal bowel sounds, Soft Extremities: No edema Skin: No rashes, No breakdown, No significant lesion Labs LABS Laboratory Tests Test 03/15/17 16:27 03/15/17 20:36 03/16/17 05:30 03/16/17 07:32 Glucose (Fingerstick) 81 mg/dL (70-99) 118 mg/dL (70-99) 123 mg/dL (70-99) White Blood Count 7.8 x10^3/uL (4.0-11.0) Red Blood Count 4.23 x10^6/uL (3.50-5.40) Hemoglobin 11.2 g/dL (12.0-15.5) Hematocrit 35.8 % (36.0-47.0) Mean Corpuscular Volume 85 fL (79-100) Mean Corpuscular Hemoglobin 27 pg (25-35) Mean Corpuscular Hemoglobin Concent 31 g/dL (31-37) Red Cell Distribution Width 16.0 % (11.5-14.5) Platelet Count 332 x10^3/uL (140-400) Neutrophils (%) (Auto) 68 % (31-73) Lymphocytes (%) (Auto) 22 % (24-48) Monocytes (%) (Auto) 9 % (0-9) Eosinophils (%) (Auto) 1 % (0-3) Basophils (%) (Auto) 0 % (0-3) Neutrophils # (Auto) 5.3 x10^3uL (1.8-7.7) Lymphocytes # (Auto) 1.7 x10^3/uL (1.0-4.8) Monocytes # (Auto) 0.7 x10^3/uL (0.0-1.1) Eosinophils # (Auto) 0.1 x10^3/uL (0.0-0.7) Basophils # (Auto) 0.0 x10^3/uL (0.0-0.2) Sodium Level 139 mmol/L (136-145) Potassium Level 4.1 mmol/L (3.5-5.1) Chloride Level 96 mmol/L (98-107) Carbon Dioxide Level 43 mmol/L (21-32) Anion Gap 0 (6-14) Blood Urea Nitrogen 19 mg/dL (7-20) Creatinine 1.1 mg/dL (0.6-1.0) Estimated GFR (Cockcroft-Gault) 60.7 Glucose Level 100 mg/dL (70-99) Calcium Level 9.5 mg/dL (8.5-10.1) Test 03/16/17 11:24 Glucose (Fingerstick) 125 mg/dL (70-99) Review of Systems Review of Systems Denies abdominal pain, N/V/D/C Denies SOA, dyspnea Assessment and Plan Assessmemt and Plan Assessment Chest pain around the site of pacemaker HTN Plan Continue home meds PT/OT Discharge disposition pending Appreciate subspecialty Problems: Comment Review of Relevant I have reviewed the following items nolan (where applicable) has been applied. Labs Laboratory Tests Test 03/14/17 16:03 03/14/17 20:52 03/15/17 04:50 03/15/17 07:19 Glucose (Fingerstick) 140 mg/dL (70-99) 146 mg/dL (70-99) 141 mg/dL (70-99) White Blood Count 7.4 x10^3/uL (4.0-11.0) Red Blood Count 4.16 x10^6/uL (3.50-5.40) Hemoglobin 11.2 g/dL (12.0-15.5) Hematocrit 36.0 % (36.0-47.0) Mean Corpuscular Volume 87 fL (79-100) Mean Corpuscular Hemoglobin 27 pg (25-35) Mean Corpuscular Hemoglobin Concent 31 g/dL (31-37) Red Cell Distribution Width 16.4 % (11.5-14.5) Platelet Count 331 x10^3/uL (140-400) Neutrophils (%) (Auto) 71 % (31-73) Lymphocytes (%) (Auto) 20 % (24-48) Monocytes (%) (Auto) 8 % (0-9) Eosinophils (%) (Auto) 2 % (0-3) Basophils (%) (Auto) 0 % (0-3) Neutrophils # (Auto) 5.2 x10^3uL (1.8-7.7) Lymphocytes # (Auto) 1.5 x10^3/uL (1.0-4.8) Monocytes # (Auto) 0.6 x10^3/uL (0.0-1.1) Eosinophils # (Auto) 0.1 x10^3/uL (0.0-0.7) Basophils # (Auto) 0.0 x10^3/uL (0.0-0.2) Sodium Level 141 mmol/L (136-145) Potassium Level 4.3 mmol/L (3.5-5.1) Chloride Level 99 mmol/L (98-107) Carbon Dioxide Level 42 mmol/L (21-32) Anion Gap 0 (6-14) Blood Urea Nitrogen 15 mg/dL (7-20) Creatinine 0.9 mg/dL (0.6-1.0) Estimated GFR (Cockcroft-Gault) 76.5 Glucose Level 108 mg/dL (70-99) Calcium Level 9.2 mg/dL (8.5-10.1) Test 03/15/17 16:27 03/15/17 20:36 03/16/17 05:30 03/16/17 07:32 Glucose (Fingerstick) 81 mg/dL (70-99) 118 mg/dL (70-99) 123 mg/dL (70-99) White Blood Count 7.8 x10^3/uL (4.0-11.0) Red Blood Count 4.23 x10^6/uL (3.50-5.40) Hemoglobin 11.2 g/dL (12.0-15.5) Hematocrit 35.8 % (36.0-47.0) Mean Corpuscular Volume 85 fL (79-100) Mean Corpuscular Hemoglobin 27 pg (25-35) Mean Corpuscular Hemoglobin Concent 31 g/dL (31-37) Red Cell Distribution Width 16.0 % (11.5-14.5) Platelet Count 332 x10^3/uL (140-400) Neutrophils (%) (Auto) 68 % (31-73) Lymphocytes (%) (Auto) 22 % (24-48) Monocytes (%) (Auto) 9 % (0-9) Eosinophils (%) (Auto) 1 % (0-3) Basophils (%) (Auto) 0 % (0-3) Neutrophils # (Auto) 5.3 x10^3uL (1.8-7.7) Lymphocytes # (Auto) 1.7 x10^3/uL (1.0-4.8) Monocytes # (Auto) 0.7 x10^3/uL (0.0-1.1) Eosinophils # (Auto) 0.1 x10^3/uL (0.0-0.7) Basophils # (Auto) 0.0 x10^3/uL (0.0-0.2) Sodium Level 139 mmol/L (136-145) Potassium Level 4.1 mmol/L (3.5-5.1) Chloride Level 96 mmol/L (98-107) Carbon Dioxide Level 43 mmol/L (21-32) Anion Gap 0 (6-14) Blood Urea Nitrogen 19 mg/dL (7-20) Creatinine 1.1 mg/dL (0.6-1.0) Estimated GFR (Cockcroft-Gault) 60.7 Glucose Level 100 mg/dL (70-99) Calcium Level 9.5 mg/dL (8.5-10.1) Test 03/16/17 11:24 Glucose (Fingerstick) 125 mg/dL (70-99) Laboratory Tests Test 03/15/17 16:27 03/15/17 20:36 03/16/17 05:30 03/16/17 07:32 Glucose (Fingerstick) 81 mg/dL (70-99) 118 mg/dL (70-99) 123 mg/dL (70-99) White Blood Count 7.8 x10^3/uL (4.0-11.0) Red Blood Count 4.23 x10^6/uL (3.50-5.40) Hemoglobin 11.2 g/dL (12.0-15.5) Hematocrit 35.8 % (36.0-47.0) Mean Corpuscular Volume 85 fL (79-100) Mean Corpuscular Hemoglobin 27 pg (25-35) Mean Corpuscular Hemoglobin Concent 31 g/dL (31-37) Red Cell Distribution Width 16.0 % (11.5-14.5) Platelet Count 332 x10^3/uL (140-400) Neutrophils (%) (Auto) 68 % (31-73) Lymphocytes (%) (Auto) 22 % (24-48) Monocytes (%) (Auto) 9 % (0-9) Eosinophils (%) (Auto) 1 % (0-3) Basophils (%) (Auto) 0 % (0-3) Neutrophils # (Auto) 5.3 x10^3uL (1.8-7.7) Lymphocytes # (Auto) 1.7 x10^3/uL (1.0-4.8) Monocytes # (Auto) 0.7 x10^3/uL (0.0-1.1) Eosinophils # (Auto) 0.1 x10^3/uL (0.0-0.7) Basophils # (Auto) 0.0 x10^3/uL (0.0-0.2) Sodium Level 139 mmol/L (136-145) Potassium Level 4.1 mmol/L (3.5-5.1) Chloride Level 96 mmol/L (98-107) Carbon Dioxide Level 43 mmol/L (21-32) Anion Gap 0 (6-14) Blood Urea Nitrogen 19 mg/dL (7-20) Creatinine 1.1 mg/dL (0.6-1.0) Estimated GFR (Cockcroft-Gault) 60.7 Glucose Level 100 mg/dL (70-99) Calcium Level 9.5 mg/dL (8.5-10.1) Test 03/16/17 11:24 Glucose (Fingerstick) 125 mg/dL (70-99) Medications Current Medications Hydromorphone HCl (Dilaudid) 0.5 mg PRN Q30MIN PRN IV SEVERE PAIN Last administered on 03/13/17 12:26; Start 03/13/17 at 10:30 Ondansetron HCl (Zofran) 4 mg 1X ONCE IV Last administered on 03/13/17 11:13 ; Start 03/13/17 at 10:30; Stop 03/13/17 at 10:31; Status DC Ondansetron HCl (Zofran) 4 mg PRN Q8HRS PRN IV NAUSEA/VOMITING; Start at 12:30; Stop 03/13/17 at 13:20; Status DC Morphine Sulfate 2 mg PRN Q2HR PRN IV PAIN; Start 03/13/17 at 12:30; Stop at 12:29; Status DC Labetalol HCl (Normodyne) 20 mg 1X ONCE IVP ; Start 03/13/17 at 13:15; Stop 03/13/17 at 13:16; Status DC Ondansetron HCl (Zofran) 4 mg PRN Q6HRS PRN IV NAUSEA/VOMITING; Start at 13:30 Labetalol HCl (Normodyne) 20 mg PRN Q2HR PRN IVP HYPERTENSION, SEE COMMENTS Last administered on 03/13/17 15:19; Start 03/13/17 at 13:30 Acetaminophen (Tylenol) 650 mg PRN Q6HRS PRN PO fever Last administered on 08:12; Start 03/13/17 at 13:30 Aspirin (Ecotrin) 81 mg DAILY PO Last administered on 03/16/17 09:01; Start 03/13/17 at 14:00 Atorvastatin Calcium (Lipitor) 20 mg HS PO Last administered on 03/15/17 20: 39; Start 03/13/17 at 21:00 Clopidogrel Bisulfate (Plavix) 75 mg DAILY PO Last administered on 03/16/17 09:02; Start 03/13/17 at 13:00 Ergocalciferol (Vitamin D2) 50,000 unit Mo PO ; Start 03/17/17 at 09:00 Famotidine (Pepcid) 20 mg BID PO Last administered on 03/16/17 09:02; Start 03/13/17 at 21:00 Ferrous Sulfate (Feosol) 325 mg DAILY08 PO Last administered on 03/16/17 09: 02; Start 03/13/17 at 14:00 Furosemide (Lasix) 80 mg BID92 PO Last administered on 03/16/17 09:01; Start 03/13/17 at 14:00 Insulin Aspart (NovoLOG) 20 units TIDWMEALS SQ Last administered on 03/16/17 12:10; Start 03/13/17 at 17:00 Insulin Detemir (Levemir) 32 units BID SQ Last administered on 03/16/17 09:07 ; Start 03/13/17 at 21:00 Metoprolol Tartrate (Lopressor) 50 mg BID PO Last administered on 03/16/17 09 :03; Start 03/13/17 at 14:00 Oxycodone/ Acetaminophen (Percocet 10/325) 1 tab PRN QID PRN PO PAIN Last administered on 03/14/17 08:13; Start 03/13/17 at 13:30 Oxycodone/ Acetaminophen (Percocet 10/325) 2 tab PRN Q6HRS PRN PO PAIN Last administered on 03/16/17 06:28; Start 03/13/17 at 13:30 Vitamin B Complex (Vishnu B) 1 tab DAILY PO Last administered on 03/16/17 09:01 ; Start 03/13/17 at 14:00 Losartan Potassium (Cozaar) 100 mg DAILY PO Last administered on 03/16/17 09: 02; Start 03/13/17 at 14:00 Potassium Chloride (Klor-Con) 10 meq BIDWMEALS PO Last administered on 09:02; Start 03/14/17 at 08:00 Nitroglycerin (Nitrostat) 0.4 mg PRN Q5MIN PRN SL CHEST PAIN; Start 03/13/17 at 13:30 Insulin Aspart (NovoLOG) 0-9 UNITS TIDWMEALS SQ Last administered on 17:20; Start 03/13/17 at 17:00 Dextrose (Dextrose 50%-Water Syringe) 12.5 gm PRN Q15MIN PRN IV SEE COMMENTS; Start 03/13/17 at 13:30 Active Scripts Active B Complex (Vitamin B Complex) 1 Each Tablet 1 Each PO DAILY Percocet 10-325 Mg Tablet (Oxycodone/Acetaminophen) 1 Each Tablet 2 Tab PO PRN Q6HRS PRN Vitamin D2 (Ergocalciferol (Vitamin D2)) 50,000 Unit Capsule 50,000 Unit PO WEEKLY Losartan Potassium 100 Mg Tablet 100 Mg PO DAILY 60 Days Percocet 10-325 Mg Tablet (Oxycodone/Acetaminophen) 1 Each Tablet 1 Tab PO Q6- 8HRS PRN Lasix (Furosemide) 80 Mg Tablet 1 Tab PO BID Reported Metoprolol Tartrate 50 Mg Tablet 1 Tab PO BID Ferrous Sulfate 325 Mg Tablet 1 Tab PO DAILY NITROGLYCERIN SubLingual (Nitroglycerin) 0.4 Mg Tab.subl 0.4 Mg SL PRN Q5MIN PRN Levemir Flextouch (Insulin Detemir) 100 Unit/1 Ml Insuln.pen 32 Unit SQ BID Novolog Flexpen (Insulin Aspart) 100 Unit/1 Ml Insuln.pen 20 Unit SQ TIDWMEALS Atorvastatin Calcium 20 Mg Tablet 20 Mg PO HS Potassium Chloride 10 Meq Capsule.er 10 Meq PO BID Aspir 81 (Aspirin) 81 Mg Tablet.dr 1 Tab PO DAILY Clopidogrel (Clopidogrel Bisulfate) 75 Mg Tablet 1 Tab PO DAILY Famotidine 20 Mg Tablet 20 Mg PO BID Vitals/I & O Vital Sign - Last 24 Hours 03/15/17 03/15/17 03/15/17 03/15/17 15:47 19:34 20:00 23:45 Temp 98.6 98.8 98.8 98.6 98.8 98.8 Pulse 63 60 60 Resp 17 18 18 B/P (MAP) 112/43 (66) 144/44 (77) 159/56 (90) Pulse Ox 95 92 98 O2 Delivery Nasal Cannula Room Air Nasal Cannula Room Air O2 Flow Rate 2.0 2.0 03/16/17 03/16/17 03/16/17 03/16/17 00:22 01:30 03:45 06:28 Temp 97.5 97.5 Pulse 60 Resp 18 18 17 B/P (MAP) 151/52 (85) Pulse Ox 92 97 97 97 O2 Delivery Nasal Cannula Nasal Cannula Room Air Nasal Cannula O2 Flow Rate 2.0 2.0 2.0 03/16/17 03/16/17 03/16/17 03/16/17 07:00 09:02 09:03 11:05 Temp 97.9 97.8 97.9 97.8 Pulse 58 58 58 60 Resp 20 20 B/P (MAP) 170/51 (90) 170/51 170/51 152/50 (84) Pulse Ox 95 96 O2 Delivery Nasal Cannula Nasal Cannula O2 Flow Rate 2.0 2.0 Intake and Output 03/15/17 03/15/17 03/16/17 14:59 22:59 06:59 Intake Total 240 ml 480 ml Balance 240 ml 480 ml PERICO BUCHANAN III DO Mar 16, 2017 12:33
[2017-03-16 15:00] VITALS: BP 154/61
[2017-03-16 19:00] VITALS: BP 152/63
[2017-03-16] MEDS: ATORVASTATIN CALCIUM 20 MG TABLET PO SCH (20:21)
[2017-03-16 22:58] VITALS: BP 135/66
[2017-03-17 03:01] VITALS: BP 149/76
[2017-03-17] MEDS: oxyCODONE/APAP 10/325 1 TAB TABLET PO PRN ×4 (03:34→21:22)
[2017-03-17 05:45] LABS: BASO % 0 % (0-3); EOS % 1 % (0-3); HEMATOCRIT 38.8 % (36.0-47.0); HEMOGLOBIN 12.3 g/dL (12.0-15.5); LYMPH # 1.6 x10^3/uL (1.0-4.8); LYMPH % 20 % (24-48); MEAN CORPUSCULAR HEMOGLOBIN 27 pg (25-35); MEAN CORPUSCULAR HGB CONC 32 g/dL (31-37); MEAN CORPUSCULAR VOLUME 85 fL (79-100); MONO % 7 % (0-9); NEUT % 72 % (31-73); PLATELET COUNT 370 x10^3/uL (140-400); RED BLOOD COUNT 4.59 x10^6/uL (3.50-5.40); RED CELL DISTRIBUTION WIDTH 16.5 % (11.5-14.5); WHITE BLOOD COUNT 8.1 x10^3/uL (4.0-11.0)
[2017-03-17 06:19] LABS: CALCIUM 9.6 mg/dL (8.5-10.1); GFR 67.8; POTASSIUM 4.3 mmol/L (3.5-5.1)
[2017-03-17 07:37] VITALS: BP 135/69
[2017-03-17] MEDS: CLOPIDOGREL BISULFATE 75 MG TABLET PO SCH (07:59)
[2017-03-17] MEDS: POTASSIUM CHLORIDE 10 MEQ TABLET.ER. PO SCH ×2 (07:59→17:04)
[2017-03-17] MEDS: FERROUS SULFATE 325 MG TABLET. PO SCH (07:59)
[2017-03-17] MEDS: VITAMIN B COMPLEX TABLET. PO SCH (07:59)
[2017-03-17] MEDS: FUROSEMIDE 80 MG TABLET. PO SCH ×2 (07:59→13:35)
[2017-03-17] MEDS: ASPIRIN ENTERIC COATED 81 MG TABLET.DR. PO SCH (07:59)
[2017-03-17] MEDS: FAMOTIDINE 20 MG TABLET. PO SCH ×2 (08:00→21:22)
[2017-03-17] MEDS: INSULIN ASPART 300 UNITS/3 ML INSULN.PEN SQ SCH ×6 (08:00→17:07)
[2017-03-17] MEDS: METOPROLOL TART IMMED RELEASE 50 MG TABLET. PO SCH ×2 (08:00→21:22)
[2017-03-17] MEDS: LOSARTAN POTASSIUM 50 MG TABLET. PO SCH (08:00)
[2017-03-17] MEDS ORDERED: ERGOCALCIFEROL (VITAMIN D2) 50,000 UNIT CAPSULE. PO SCH (09:00)
[2017-03-17] MEDS: INSULIN DETEMIR 300 UNITS/3 ML INSULN.PEN. SQ SCH ×2 (09:24→22:19)
--- NOTE | 2017-03-17 10:34 | PDOC ---
PROGRESS NOTES Chief Complaint Chief Complaint Chest pain around the site of pacemaker HTN History of Present Illness History of Present Illness Patient reported difficulty sleeping yesterday. Ambien was prescribed, but patient did not get it last night. Chest pain improving HTN from when she was admitted has resolved VSS Patient still has chest pain Vitals Vitals Vital Signs Date Time Temp Pulse Resp B/P (MAP) Pulse Ox O2 Delivery O2 Flow Rate FiO2 03/17/17 09:20 18 92 Room Air 2.0 03/17/17 08:00 71 135/69 03/17/17 07:37 97.9 97.9 Physical Exam General: Alert, Oriented X3, Cooperative Heart: Regular rate, Normal S1, Normal S2 Lungs: Clear Abdomen: Normal bowel sounds, Soft Extremities: No edema Skin: No rashes, No breakdown, No significant lesion Labs LABS Laboratory Tests Test 03/16/17 11:24 03/16/17 16:21 03/16/17 20:19 03/17/17 05:00 Glucose (Fingerstick) 125 mg/dL (70-99) 163 mg/dL (70-99) 106 mg/dL (70-99) White Blood Count 8.1 x10^3/uL (4.0-11.0) Red Blood Count 4.59 x10^6/uL (3.50-5.40) Hemoglobin 12.3 g/dL (12.0-15.5) Hematocrit 38.8 % (36.0-47.0) Mean Corpuscular Volume 85 fL (79-100) Mean Corpuscular Hemoglobin 27 pg (25-35) Mean Corpuscular Hemoglobin Concent 32 g/dL (31-37) Red Cell Distribution Width 16.5 % (11.5-14.5) Platelet Count 370 x10^3/uL (140-400) Neutrophils (%) (Auto) 72 % (31-73) Lymphocytes (%) (Auto) 20 % (24-48) Monocytes (%) (Auto) 7 % (0-9) Eosinophils (%) (Auto) 1 % (0-3) Basophils (%) (Auto) 0 % (0-3) Neutrophils # (Auto) 5.8 x10^3uL (1.8-7.7) Lymphocytes # (Auto) 1.6 x10^3/uL (1.0-4.8) Monocytes # (Auto) 0.6 x10^3/uL (0.0-1.1) Eosinophils # (Auto) 0.1 x10^3/uL (0.0-0.7) Basophils # (Auto) 0.0 x10^3/uL (0.0-0.2) Sodium Level 138 mmol/L (136-145) Potassium Level 4.3 mmol/L (3.5-5.1) Chloride Level 95 mmol/L (98-107) Carbon Dioxide Level 40 mmol/L (21-32) Anion Gap 3 (6-14) Blood Urea Nitrogen 16 mg/dL (7-20) Creatinine 1.0 mg/dL (0.6-1.0) Estimated GFR (Cockcroft-Gault) 67.8 Glucose Level 134 mg/dL (70-99) Calcium Level 9.6 mg/dL (8.5-10.1) Test 03/17/17 07:15 Glucose (Fingerstick) 109 mg/dL (70-99) Review of Systems Review of Systems Denies dyspnea or SOA Denies abdominal pain or N/V/D/C Assessment and Plan Assessmemt and Plan Assessment Chest pain around the site of pacemaker HTN Plan Continue home meds PT/OT Continue ambien for insomnia Probable discharge tomorrow Appreciate subspecialty Problems: Comment Review of Relevant I have reviewed the following items nolan (where applicable) has been applied. Labs Laboratory Tests Test 03/15/17 16:27 03/15/17 20:36 03/16/17 05:30 03/16/17 07:32 Glucose (Fingerstick) 81 mg/dL (70-99) 118 mg/dL (70-99) 123 mg/dL (70-99) White Blood Count 7.8 x10^3/uL (4.0-11.0) Red Blood Count 4.23 x10^6/uL (3.50-5.40) Hemoglobin 11.2 g/dL (12.0-15.5) Hematocrit 35.8 % (36.0-47.0) Mean Corpuscular Volume 85 fL (79-100) Mean Corpuscular Hemoglobin 27 pg (25-35) Mean Corpuscular Hemoglobin Concent 31 g/dL (31-37) Red Cell Distribution Width 16.0 % (11.5-14.5) Platelet Count 332 x10^3/uL (140-400) Neutrophils (%) (Auto) 68 % (31-73) Lymphocytes (%) (Auto) 22 % (24-48) Monocytes (%) (Auto) 9 % (0-9) Eosinophils (%) (Auto) 1 % (0-3) Basophils (%) (Auto) 0 % (0-3) Neutrophils # (Auto) 5.3 x10^3uL (1.8-7.7) Lymphocytes # (Auto) 1.7 x10^3/uL (1.0-4.8) Monocytes # (Auto) 0.7 x10^3/uL (0.0-1.1) Eosinophils # (Auto) 0.1 x10^3/uL (0.0-0.7) Basophils # (Auto) 0.0 x10^3/uL (0.0-0.2) Sodium Level 139 mmol/L (136-145) Potassium Level 4.1 mmol/L (3.5-5.1) Chloride Level 96 mmol/L (98-107) Carbon Dioxide Level 43 mmol/L (21-32) Anion Gap 0 (6-14) Blood Urea Nitrogen 19 mg/dL (7-20) Creatinine 1.1 mg/dL (0.6-1.0) Estimated GFR (Cockcroft-Gault) 60.7 Glucose Level 100 mg/dL (70-99) Calcium Level 9.5 mg/dL (8.5-10.1) Test 03/16/17 11:24 03/16/17 16:21 03/16/17 20:19 03/17/17 05:00 Glucose (Fingerstick) 125 mg/dL (70-99) 163 mg/dL (70-99) 106 mg/dL (70-99) White Blood Count 8.1 x10^3/uL (4.0-11.0) Red Blood Count 4.59 x10^6/uL (3.50-5.40) Hemoglobin 12.3 g/dL (12.0-15.5) Hematocrit 38.8 % (36.0-47.0) Mean Corpuscular Volume 85 fL (79-100) Mean Corpuscular Hemoglobin 27 pg (25-35) Mean Corpuscular Hemoglobin Concent 32 g/dL (31-37) Red Cell Distribution Width 16.5 % (11.5-14.5) Platelet Count 370 x10^3/uL (140-400) Neutrophils (%) (Auto) 72 % (31-73) Lymphocytes (%) (Auto) 20 % (24-48) Monocytes (%) (Auto) 7 % (0-9) Eosinophils (%) (Auto) 1 % (0-3) Basophils (%) (Auto) 0 % (0-3) Neutrophils # (Auto) 5.8 x10^3uL (1.8-7.7) Lymphocytes # (Auto) 1.6 x10^3/uL (1.0-4.8) Monocytes # (Auto) 0.6 x10^3/uL (0.0-1.1) Eosinophils # (Auto) 0.1 x10^3/uL (0.0-0.7) Basophils # (Auto) 0.0 x10^3/uL (0.0-0.2) Sodium Level 138 mmol/L (136-145) Potassium Level 4.3 mmol/L (3.5-5.1) Chloride Level 95 mmol/L (98-107) Carbon Dioxide Level 40 mmol/L (21-32) Anion Gap 3 (6-14) Blood Urea Nitrogen 16 mg/dL (7-20) Creatinine 1.0 mg/dL (0.6-1.0) Estimated GFR (Cockcroft-Gault) 67.8 Glucose Level 134 mg/dL (70-99) Calcium Level 9.6 mg/dL (8.5-10.1) Test 03/17/17 07:15 Glucose (Fingerstick) 109 mg/dL (70-99) Laboratory Tests Test 03/16/17 11:24 03/16/17 16:21 03/16/17 20:19 03/17/17 05:00 Glucose (Fingerstick) 125 mg/dL (70-99) 163 mg/dL (70-99) 106 mg/dL (70-99) White Blood Count 8.1 x10^3/uL (4.0-11.0) Red Blood Count 4.59 x10^6/uL (3.50-5.40) Hemoglobin 12.3 g/dL (12.0-15.5) Hematocrit 38.8 % (36.0-47.0) Mean Corpuscular Volume 85 fL (79-100) Mean Corpuscular Hemoglobin 27 pg (25-35) Mean Corpuscular Hemoglobin Concent 32 g/dL (31-37) Red Cell Distribution Width 16.5 % (11.5-14.5) Platelet Count 370 x10^3/uL (140-400) Neutrophils (%) (Auto) 72 % (31-73) Lymphocytes (%) (Auto) 20 % (24-48) Monocytes (%) (Auto) 7 % (0-9) Eosinophils (%) (Auto) 1 % (0-3) Basophils (%) (Auto) 0 % (0-3) Neutrophils # (Auto) 5.8 x10^3uL (1.8-7.7) Lymphocytes # (Auto) 1.6 x10^3/uL (1.0-4.8) Monocytes # (Auto) 0.6 x10^3/uL (0.0-1.1) Eosinophils # (Auto) 0.1 x10^3/uL (0.0-0.7) Basophils # (Auto) 0.0 x10^3/uL (0.0-0.2) Sodium Level 138 mmol/L (136-145) Potassium Level 4.3 mmol/L (3.5-5.1) Chloride Level 95 mmol/L (98-107) Carbon Dioxide Level 40 mmol/L (21-32) Anion Gap 3 (6-14) Blood Urea Nitrogen 16 mg/dL (7-20) Creatinine 1.0 mg/dL (0.6-1.0) Estimated GFR (Cockcroft-Gault) 67.8 Glucose Level 134 mg/dL (70-99) Calcium Level 9.6 mg/dL (8.5-10.1) Test 03/17/17 07:15 Glucose (Fingerstick) 109 mg/dL (70-99) Medications Current Medications Hydromorphone HCl (Dilaudid) 0.5 mg PRN Q30MIN PRN IV SEVERE PAIN Last administered on 03/13/17t 12:26; Start 03/13/17 at 10:30 Ondansetron HCl (Zofran) 4 mg 1X ONCE IV Last administered on 03/13/17 11:13 ; Start 03/13/17 at 10:30; Stop 03/13/17 at 10:31; Status DC Ondansetron HCl (Zofran) 4 mg PRN Q8HRS PRN IV NAUSEA/VOMITING; Start at 12:30; Stop 03/13/17 at 13:20; Status DC Morphine Sulfate 2 mg PRN Q2HR PRN IV PAIN; Start 03/13/17 at 12:30; Stop at 12:29; Status DC Labetalol HCl (Normodyne) 20 mg 1X ONCE IVP ; Start 03/13/17 at 13:15; Stop 03/13/17 at 13:16; Status DC Ondansetron HCl (Zofran) 4 mg PRN Q6HRS PRN IV NAUSEA/VOMITING; Start at 13:30 Labetalol HCl (Normodyne) 20 mg PRN Q2HR PRN IVP HYPERTENSION, SEE COMMENTS Last administered on 03/13/17 15:19; Start 03/13/17 at 13:30 Acetaminophen (Tylenol) 650 mg PRN Q6HRS PRN PO fever Last administered on 08:12; Start 03/13/17 at 13:30 Aspirin (Ecotrin) 81 mg DAILY PO Last administered on 03/17/17 07:59; Start 03/13/17 at 14:00 Atorvastatin Calcium (Lipitor) 20 mg HS PO Last administered on 03/16/17 20: 21; Start 03/13/17 at 21:00 Clopidogrel Bisulfate (Plavix) 75 mg DAILY PO Last administered on 03/17/17 07:59; Start 03/13/17 at 13:00 Ergocalciferol (Vitamin D2) 50,000 unit Mo PO Last administered on 03/17/17 07:59; Start 03/17/17 at 09:00 Famotidine (Pepcid) 20 mg BID PO Last administered on 03/17/17 08:00; Start 03/13/17 at 21:00 Ferrous Sulfate (Feosol) 325 mg DAILY08 PO Last administered on 03/17/17 07: 59; Start 03/13/17 at 14:00 Furosemide (Lasix) 80 mg BID92 PO Last administered on 03/17/17 07:59; Start 03/13/17 at 14:00 Insulin Aspart (NovoLOG) 20 units TIDWMEALS SQ Last administered on 03/17/17 08:07; Start 03/13/17 at 17:00 Insulin Detemir (Levemir) 32 units BID SQ Last administered on 03/17/17 09:24 ; Start 03/13/17 at 21:00 Metoprolol Tartrate (Lopressor) 50 mg BID PO Last administered on 03/17/17 08 :00; Start 03/13/17 at 14:00 Oxycodone/ Acetaminophen (Percocet 10/325) 1 tab PRN QID PRN PO PAIN Last administered on 03/14/17 08:13; Start 03/13/17 at 13:30 Oxycodone/ Acetaminophen (Percocet 10/325) 2 tab PRN Q6HRS PRN PO PAIN Last administered on 03/17/17 09:20; Start 03/13/17 at 13:30 Vitamin B Complex (Vishnu B) 1 tab DAILY PO Last administered on 03/17/17 07:59 ; Start 03/13/17 at 14:00 Losartan Potassium (Cozaar) 100 mg DAILY PO Last administered on 03/17/17 08: 00; Start 03/13/17 at 14:00 Potassium Chloride (Klor-Con) 10 meq BIDWMEALS PO Last administered on 07:59; Start 03/14/17 at 08:00 Nitroglycerin (Nitrostat) 0.4 mg PRN Q5MIN PRN SL CHEST PAIN; Start 03/13/17 at 13:30 Insulin Aspart (NovoLOG) 0-9 UNITS TIDWMEALS SQ Last administered on 17:34; Start 03/13/17 at 17:00 Dextrose (Dextrose 50%-Water Syringe) 12.5 gm PRN Q15MIN PRN IV SEE COMMENTS; Start 03/13/17 at 13:30 Zolpidem Tartrate (Ambien) 5 mg PRN QHS PRN PO INSOMNIA; Start 03/16/17 at 12: 45 Active Scripts Active B Complex (Vitamin B Complex) 1 Each Tablet 1 Each PO DAILY Percocet 10-325 Mg Tablet (Oxycodone/Acetaminophen) 1 Each Tablet 2 Tab PO PRN Q6HRS PRN Vitamin D2 (Ergocalciferol (Vitamin D2)) 50,000 Unit Capsule 50,000 Unit PO WEEKLY Losartan Potassium 100 Mg Tablet 100 Mg PO DAILY 60 Days Percocet 10-325 Mg Tablet (Oxycodone/Acetaminophen) 1 Each Tablet 1 Tab PO Q6- 8HRS PRN Lasix (Furosemide) 80 Mg Tablet 1 Tab PO BID Reported Metoprolol Tartrate 50 Mg Tablet 1 Tab PO BID Ferrous Sulfate 325 Mg Tablet 1 Tab PO DAILY NITROGLYCERIN SubLingual (Nitroglycerin) 0.4 Mg Tab.subl 0.4 Mg SL PRN Q5MIN PRN Levemir Flextouch (Insulin Detemir) 100 Unit/1 Ml Insuln.pen 32 Unit SQ BID Novolog Flexpen (Insulin Aspart) 100 Unit/1 Ml Insuln.pen 20 Unit SQ TIDWMEALS Atorvastatin Calcium 20 Mg Tablet 20 Mg PO HS Potassium Chloride 10 Meq Capsule.er 10 Meq PO BID Aspir 81 (Aspirin) 81 Mg Tablet. 1 Tab PO DAILY Clopidogrel (Clopidogrel Bisulfate) 75 Mg Tablet 1 Tab PO DAILY Famotidine 20 Mg Tablet 20 Mg PO BID Vitals/I & O Vital Sign - Last 24 Hours 03/16/17 03/16/17 03/16/17 03/16/17 11:05 15:00 19:00 20:00 Temp 97.8 97.8 98.8 97.8 97.8 98.8 Pulse 60 60 67 Resp 20 20 18 B/P (MAP) 152/50 (84) 154/61 (92) 152/63 (92) Pulse Ox 96 94 93 O2 Delivery Nasal Cannula Nasal Cannula Nasal Cannula Room Air O2 Flow Rate 2.0 2.0 2.0 03/16/17 03/16/17 03/16/17 03/16/17 20:21 20:22 21:22 22:58 Temp 99.5 99.5 Pulse 67 67 Resp 20 18 B/P (MAP) 152/63 135/66 (89) Pulse Ox 93 93 O2 Delivery Room Air Room Air O2 Flow Rate 2.0 03/17/17 03/17/17 03/17/17 03/17/17 03:01 03:34 04:34 07:37 Temp 97.4 97.9 97.4 97.9 Pulse 60 71 Resp 19 20 18 18 B/P (MAP) 149/76 (100) 135/69 (91) Pulse Ox 94 92 O2 Delivery Nasal Cannula Room Air Room Air Room Air O2 Flow Rate 2.0 03/17/17 03/17/17 03/17/17 08:00 08:00 09:20 Pulse 71 71 Resp 18 B/P (MAP) 135/69 135/69 Pulse Ox 92 O2 Delivery Room Air O2 Flow Rate 2.0 Intake and Output 03/16/17 03/16/17 03/17/17 15:00 23:00 07:00 Intake Total 600 ml 600 ml 620 ml Balance 600 ml 600 ml 620 ml PERICO BUCHANAN III DO Mar 17, 2017 10:33
[2017-03-17 10:43] VITALS: BP 118/67
[2017-03-17 15:00] VITALS: BP 129/59
[2017-03-17 19:30] VITALS: BP 147/58
[2017-03-17] MEDS: ATORVASTATIN CALCIUM 20 MG TABLET PO SCH (21:23)
[2017-03-17] MEDS: ZOLPIDEM 5 MG TABLET. PO PRN (22:16)
[2017-03-17 23:30] VITALS: BP 132/53
[2017-03-18] MEDS: oxyCODONE/APAP 10/325 1 TAB TABLET PO PRN ×3 (03:31→18:35)
[2017-03-18 03:34] VITALS: BP 152/58
[2017-03-18 05:52] LABS: BASO % 0 % (0-3); EOS % 1 % (0-3); HEMATOCRIT 37.3 % (36.0-47.0); HEMOGLOBIN 11.7 g/dL (12.0-15.5); LYMPH # 1.7 x10^3/uL (1.0-4.8); LYMPH % 22 % (24-48); MEAN CORPUSCULAR HEMOGLOBIN 27 pg (25-35); MEAN CORPUSCULAR HGB CONC 32 g/dL (31-37); MEAN CORPUSCULAR VOLUME 85 fL (79-100); MONO % 8 % (0-9); NEUT % 69 % (31-73); PLATELET COUNT 347 x10^3/uL (140-400); RED BLOOD COUNT 4.41 x10^6/uL (3.50-5.40); RED CELL DISTRIBUTION WIDTH 16.8 % (11.5-14.5); WHITE BLOOD COUNT 7.8 x10^3/uL (4.0-11.0)
[2017-03-18 06:32] LABS: CALCIUM 9.6 mg/dL (8.5-10.1); CREATININE 1.1 mg/dL (0.6-1.0); GFR 60.7
[2017-03-18 07:00] VITALS: BP 158/62
[2017-03-18] MEDS: INSULIN ASPART 300 UNITS/3 ML INSULN.PEN SQ SCH ×6 (08:00→17:00)
[2017-03-18] MEDS: FAMOTIDINE 20 MG TABLET. PO SCH ×2 (08:01→20:52)
[2017-03-18] MEDS: CLOPIDOGREL BISULFATE 75 MG TABLET PO SCH (08:01)
[2017-03-18] MEDS: POTASSIUM CHLORIDE 10 MEQ TABLET.ER. PO SCH ×2 (08:01→16:55)
[2017-03-18] MEDS: ASPIRIN ENTERIC COATED 81 MG TABLET.DR. PO SCH (08:01)
[2017-03-18] MEDS: FERROUS SULFATE 325 MG TABLET. PO SCH (08:01)
[2017-03-18] MEDS: FUROSEMIDE 80 MG TABLET. PO SCH ×2 (08:01→13:58)
[2017-03-18] MEDS: VITAMIN B COMPLEX TABLET. PO SCH (08:01)
[2017-03-18] MEDS: METOPROLOL TART IMMED RELEASE 50 MG TABLET. PO SCH ×2 (08:02→20:52)
[2017-03-18] MEDS: LOSARTAN POTASSIUM 50 MG TABLET. PO SCH (08:02)
[2017-03-18] MEDS: INSULIN DETEMIR 300 UNITS/3 ML INSULN.PEN. SQ SCH ×2 (08:25→20:55)
--- NOTE | 2017-03-18 10:07 | PDOC ---
PROGRESS NOTES Chief Complaint Chief Complaint Left shoulder pain Chest pain mainly at the pacer site area, MSK Recent pacemaker implantation for "fast heart rate" Hypertension uncontrolled Accelerated hypertension present on admission- will add when necessary labetalol IV Diabetes type 2 Obesity with a BMI 42.2 History of Present Illness History of Present Illness Chest pain is noncardiac in nature Her pain is mainly on the left shoulder, with inability to elevate the left arm fully unlike what she can do on the right arm. Some tenderness in the left shoulder area. Limited range of motion because of pain. No sensory deficit. Plan: Check a shoulder x-ray Consult physiatry regarding left shoulder pain If all these can be done today she can go home today Discussed with ANGÉLICA Champion Vitals Vitals Vital Signs Date Time Temp Pulse Resp B/P (MAP) Pulse Ox O2 Delivery O2 Flow Rate FiO2 03/18/17 08:02 60 158/62 03/18/17 08:00 18 99 Room Air 2.0 03/18/17 07:00 98.1 98.1 Physical Exam General: Alert, Oriented X3, Cooperative Heart: Regular rate, Normal S1, Normal S2 Lungs: Clear Abdomen: Normal bowel sounds, Soft Extremities: No edema Skin: No rashes, No breakdown, No significant lesion Labs LABS Laboratory Tests Test 03/17/17 11:11 03/17/17 16:31 03/17/17 21:55 03/18/17 04:40 Glucose (Fingerstick) 97 mg/dL (70-99) 137 mg/dL (70-99) 122 mg/dL (70-99) White Blood Count 7.8 x10^3/uL (4.0-11.0) Red Blood Count 4.41 x10^6/uL (3.50-5.40) Hemoglobin 11.7 g/dL (12.0-15.5) Hematocrit 37.3 % (36.0-47.0) Mean Corpuscular Volume 85 fL (79-100) Mean Corpuscular Hemoglobin 27 pg (25-35) Mean Corpuscular Hemoglobin Concent 32 g/dL (31-37) Red Cell Distribution Width 16.8 % (11.5-14.5) Platelet Count 347 x10^3/uL (140-400) Neutrophils (%) (Auto) 69 % (31-73) Lymphocytes (%) (Auto) 22 % (24-48) Monocytes (%) (Auto) 8 % (0-9) Eosinophils (%) (Auto) 1 % (0-3) Basophils (%) (Auto) 0 % (0-3) Neutrophils # (Auto) 5.4 x10^3uL (1.8-7.7) Lymphocytes # (Auto) 1.7 x10^3/uL (1.0-4.8) Monocytes # (Auto) 0.7 x10^3/uL (0.0-1.1) Eosinophils # (Auto) 0.1 x10^3/uL (0.0-0.7) Basophils # (Auto) 0.0 x10^3/uL (0.0-0.2) Sodium Level 142 mmol/L (136-145) Potassium Level 4.0 mmol/L (3.5-5.1) Chloride Level 96 mmol/L (98-107) Carbon Dioxide Level 40 mmol/L (21-32) Anion Gap 6 (6-14) Blood Urea Nitrogen 20 mg/dL (7-20) Creatinine 1.1 mg/dL (0.6-1.0) Estimated GFR (Cockcroft-Gault) 60.7 Glucose Level 117 mg/dL (70-99) Calcium Level 9.6 mg/dL (8.5-10.1) Test 03/18/17 07:29 Glucose (Fingerstick) 116 mg/dL (70-99) Review of Systems Review of Systems Left shoulder pain, all else 14 point systems reviewed negative Comment Review of Relevant I have reviewed the following items nolan (where applicable) has been applied. Labs Laboratory Tests Test 03/16/17 11:24 03/16/17 16:21 03/16/17 20:19 03/17/17 05:00 Glucose (Fingerstick) 125 mg/dL (70-99) 163 mg/dL (70-99) 106 mg/dL (70-99) White Blood Count 8.1 x10^3/uL (4.0-11.0) Red Blood Count 4.59 x10^6/uL (3.50-5.40) Hemoglobin 12.3 g/dL (12.0-15.5) Hematocrit 38.8 % (36.0-47.0) Mean Corpuscular Volume 85 fL (79-100) Mean Corpuscular Hemoglobin 27 pg (25-35) Mean Corpuscular Hemoglobin Concent 32 g/dL (31-37) Red Cell Distribution Width 16.5 % (11.5-14.5) Platelet Count 370 x10^3/uL (140-400) Neutrophils (%) (Auto) 72 % (31-73) Lymphocytes (%) (Auto) 20 % (24-48) Monocytes (%) (Auto) 7 % (0-9) Eosinophils (%) (Auto) 1 % (0-3) Basophils (%) (Auto) 0 % (0-3) Neutrophils # (Auto) 5.8 x10^3uL (1.8-7.7) Lymphocytes # (Auto) 1.6 x10^3/uL (1.0-4.8) Monocytes # (Auto) 0.6 x10^3/uL (0.0-1.1) Eosinophils # (Auto) 0.1 x10^3/uL (0.0-0.7) Basophils # (Auto) 0.0 x10^3/uL (0.0-0.2) Sodium Level 138 mmol/L (136-145) Potassium Level 4.3 mmol/L (3.5-5.1) Chloride Level 95 mmol/L (98-107) Carbon Dioxide Level 40 mmol/L (21-32) Anion Gap 3 (6-14) Blood Urea Nitrogen 16 mg/dL (7-20) Creatinine 1.0 mg/dL (0.6-1.0) Estimated GFR (Cockcroft-Gault) 67.8 Glucose Level 134 mg/dL (70-99) Calcium Level 9.6 mg/dL (8.5-10.1) Test 03/17/17 07:15 03/17/17 11:11 03/17/17 16:31 03/17/17 21:55 Glucose (Fingerstick) 109 mg/dL (70-99) 97 mg/dL (70-99) 137 mg/dL (70-99) 122 mg/dL (70-99) Test 03/18/17 04:40 03/18/17 07:29 White Blood Count 7.8 x10^3/uL (4.0-11.0) Red Blood Count 4.41 x10^6/uL (3.50-5.40) Hemoglobin 11.7 g/dL (12.0-15.5) Hematocrit 37.3 % (36.0-47.0) Mean Corpuscular Volume 85 fL (79-100) Mean Corpuscular Hemoglobin 27 pg (25-35) Mean Corpuscular Hemoglobin Concent 32 g/dL (31-37) Red Cell Distribution Width 16.8 % (11.5-14.5) Platelet Count 347 x10^3/uL (140-400) Neutrophils (%) (Auto) 69 % (31-73) Lymphocytes (%) (Auto) 22 % (24-48) Monocytes (%) (Auto) 8 % (0-9) Eosinophils (%) (Auto) 1 % (0-3) Basophils (%) (Auto) 0 % (0-3) Neutrophils # (Auto) 5.4 x10^3uL (1.8-7.7) Lymphocytes # (Auto) 1.7 x10^3/uL (1.0-4.8) Monocytes # (Auto) 0.7 x10^3/uL (0.0-1.1) Eosinophils # (Auto) 0.1 x10^3/uL (0.0-0.7) Basophils # (Auto) 0.0 x10^3/uL (0.0-0.2) Sodium Level 142 mmol/L (136-145) Potassium Level 4.0 mmol/L (3.5-5.1) Chloride Level 96 mmol/L (98-107) Carbon Dioxide Level 40 mmol/L (21-32) Anion Gap 6 (6-14) Blood Urea Nitrogen 20 mg/dL (7-20) Creatinine 1.1 mg/dL (0.6-1.0) Estimated GFR (Cockcroft-Gault) 60.7 Glucose Level 117 mg/dL (70-99) Calcium Level 9.6 mg/dL (8.5-10.1) Glucose (Fingerstick) 116 mg/dL (70-99) Laboratory Tests Test 03/17/17 11:11 03/17/17 16:31 03/17/17 21:55 03/18/17 04:40 Glucose (Fingerstick) 97 mg/dL (70-99) 137 mg/dL (70-99) 122 mg/dL (70-99) White Blood Count 7.8 x10^3/uL (4.0-11.0) Red Blood Count 4.41 x10^6/uL (3.50-5.40) Hemoglobin 11.7 g/dL (12.0-15.5) Hematocrit 37.3 % (36.0-47.0) Mean Corpuscular Volume 85 fL (79-100) Mean Corpuscular Hemoglobin 27 pg (25-35) Mean Corpuscular Hemoglobin Concent 32 g/dL (31-37) Red Cell Distribution Width 16.8 % (11.5-14.5) Platelet Count 347 x10^3/uL (140-400) Neutrophils (%) (Auto) 69 % (31-73) Lymphocytes (%) (Auto) 22 % (24-48) Monocytes (%) (Auto) 8 % (0-9) Eosinophils (%) (Auto) 1 % (0-3) Basophils (%) (Auto) 0 % (0-3) Neutrophils # (Auto) 5.4 x10^3uL (1.8-7.7) Lymphocytes # (Auto) 1.7 x10^3/uL (1.0-4.8) Monocytes # (Auto) 0.7 x10^3/uL (0.0-1.1) Eosinophils # (Auto) 0.1 x10^3/uL (0.0-0.7) Basophils # (Auto) 0.0 x10^3/uL (0.0-0.2) Sodium Level 142 mmol/L (136-145) Potassium Level 4.0 mmol/L (3.5-5.1) Chloride Level 96 mmol/L (98-107) Carbon Dioxide Level 40 mmol/L (21-32) Anion Gap 6 (6-14) Blood Urea Nitrogen 20 mg/dL (7-20) Creatinine 1.1 mg/dL (0.6-1.0) Estimated GFR (Cockcroft-Gault) 60.7 Glucose Level 117 mg/dL (70-99) Calcium Level 9.6 mg/dL (8.5-10.1) Test 03/18/17 07:29 Glucose (Fingerstick) 116 mg/dL (70-99) Medications Current Medications Hydromorphone HCl (Dilaudid) 0.5 mg PRN Q30MIN PRN IV SEVERE PAIN Last administered on 03/13/17 12:26; Start 03/13/17 at 10:30 Ondansetron HCl (Zofran) 4 mg 1X ONCE IV Last administered on 03/13/17 11:13 ; Start 03/13/17 at 10:30; Stop 03/13/17 at 10:31; Status DC Ondansetron HCl (Zofran) 4 mg PRN Q8HRS PRN IV NAUSEA/VOMITING; Start at 12:30; Stop 03/13/17 at 13:20; Status DC Morphine Sulfate 2 mg PRN Q2HR PRN IV PAIN; Start 03/13/17 at 12:30; Stop at 12:29; Status DC Labetalol HCl (Normodyne) 20 mg 1X ONCE IVP ; Start 03/13/17 at 13:15; Stop 03/13/17 at 13:16; Status DC Ondansetron HCl (Zofran) 4 mg PRN Q6HRS PRN IV NAUSEA/VOMITING; Start at 13:30 Labetalol HCl (Normodyne) 20 mg PRN Q2HR PRN IVP HYPERTENSION, SEE COMMENTS Last administered on 03/13/17 15:19; Start 03/13/17 at 13:30 Acetaminophen (Tylenol) 650 mg PRN Q6HRS PRN PO fever Last administered on 08:12; Start 03/13/17 at 13:30 Aspirin (Ecotrin) 81 mg DAILY PO Last administered on 03/18/17 08:01; Start 03/13/17 at 14:00 Atorvastatin Calcium (Lipitor) 20 mg HS PO Last administered on 03/17/17 21: 23; Start 03/13/17 at 21:00 Clopidogrel Bisulfate (Plavix) 75 mg DAILY PO Last administered on 03/18/17 08:01; Start 03/13/17 at 13:00 Ergocalciferol (Vitamin D2) 50,000 unit Mo PO Last administered on 03/17/17 07:59; Start 03/17/17 at 09:00 Famotidine (Pepcid) 20 mg BID PO Last administered on 03/18/17 08:01; Start 03/13/17 at 21:00 Ferrous Sulfate (Feosol) 325 mg DAILY08 PO Last administered on 03/18/17 08: 01; Start 03/13/17 at 14:00 Furosemide (Lasix) 80 mg BID92 PO Last administered on 03/18/17 08:01; Start 03/13/17 at 14:00 Insulin Aspart (NovoLOG) 20 units TIDWMEALS SQ Last administered on 03/18/17 08:24; Start 03/13/17 at 17:00 Insulin Detemir (Levemir) 32 units BID SQ Last administered on 03/18/17 08:25 ; Start 03/13/17 at 21:00 Metoprolol Tartrate (Lopressor) 50 mg BID PO Last administered on 03/18/17 08 :02; Start 03/13/17 at 14:00 Oxycodone/ Acetaminophen (Percocet 10/325) 1 tab PRN QID PRN PO PAIN Last administered on 03/14/17 08:13; Start 03/13/17 at 13:30 Oxycodone/ Acetaminophen (Percocet 10/325) 2 tab PRN Q6HRS PRN PO PAIN Last administered on 03/18/17 03:31; Start 03/13/17 at 13:30 Vitamin B Complex (Vishnu B) 1 tab DAILY PO Last administered on 03/18/17 08:01 ; Start 03/13/17 at 14:00 Losartan Potassium (Cozaar) 100 mg DAILY PO Last administered on 03/18/17 08: 02; Start 03/13/17 at 14:00 Potassium Chloride (Klor-Con) 10 meq BIDWMEALS PO Last administered on 08:01; Start 03/14/17 at 08:00 Nitroglycerin (Nitrostat) 0.4 mg PRN Q5MIN PRN SL CHEST PAIN; Start 03/13/17 at 13:30 Insulin Aspart (NovoLOG) 0-9 UNITS TIDWMEALS SQ Last administered on 17:34; Start 03/13/17 at 17:00 Dextrose (Dextrose 50%-Water Syringe) 12.5 gm PRN Q15MIN PRN IV SEE COMMENTS; Start 03/13/17 at 13:30 Zolpidem Tartrate (Ambien) 5 mg PRN QHS PRN PO INSOMNIA Last administered on t 22:16; Start 03/16/17 at 12:45 Active Scripts Active B Complex (Vitamin B Complex) 1 Each Tablet 1 Each PO DAILY Percocet 10-325 Mg Tablet (Oxycodone/Acetaminophen) 1 Each Tablet 2 Tab PO PRN Q6HRS PRN Vitamin D2 (Ergocalciferol (Vitamin D2)) 50,000 Unit Capsule 50,000 Unit PO WEEKLY Losartan Potassium 100 Mg Tablet 100 Mg PO DAILY 60 Days Percocet 10-325 Mg Tablet (Oxycodone/Acetaminophen) 1 Each Tablet 1 Tab PO Q6- 8HRS PRN Lasix (Furosemide) 80 Mg Tablet 1 Tab PO BID Reported Metoprolol Tartrate 50 Mg Tablet 1 Tab PO BID Ferrous Sulfate 325 Mg Tablet 1 Tab PO DAILY NITROGLYCERIN SubLingual (Nitroglycerin) 0.4 Mg Tab.subl 0.4 Mg SL PRN Q5MIN PRN Levemir Flextouch (Insulin Detemir) 100 Unit/1 Ml Insuln.pen 32 Unit SQ BID Novolog Flexpen (Insulin Aspart) 100 Unit/1 Ml Insuln.pen 20 Unit SQ TIDWMEALS Atorvastatin Calcium 20 Mg Tablet 20 Mg PO HS Potassium Chloride 10 Meq Capsule.er 10 Meq PO BID Aspir 81 (Aspirin) 81 Mg Tablet.dr 1 Tab PO DAILY Clopidogrel (Clopidogrel Bisulfate) 75 Mg Tablet 1 Tab PO DAILY Famotidine 20 Mg Tablet 20 Mg PO BID Vitals/I & O Vital Sign - Last 24 Hours 03/17/17 03/17/17 03/17/17 03/17/17 10:43 15:00 15:31 19:30 Temp 98.1 97.9 98.1 98.1 97.9 98.1 Pulse 63 68 60 Resp 17 20 18 18 B/P (MAP) 118/67 (84) 129/59 (82) 147/58 (87) Pulse Ox 93 94 93 98 O2 Delivery Nasal Cannula Nasal Cannula Room Air Room Air O2 Flow Rate 1.0 1.0 1.0 03/17/17 03/17/17 03/17/17 03/17/17 20:00 21:22 21:22 23:30 Temp 99.9 99.9 Pulse 60 57 Resp 20 18 B/P (MAP) 147/58 132/53 (79) Pulse Ox 92 O2 Delivery Room Air Room Air Room Air 03/18/17 03/18/17 03/18/17 03/18/17 03:31 03:34 07:00 08:00 Temp 97.9 98.1 97.9 98.1 Pulse 64 60 Resp 20 17 18 B/P (MAP) 152/58 (89) 158/62 (94) Pulse Ox 93 99 99 O2 Delivery Nasal Cannula Room Air Nasal Cannula Room Air O2 Flow Rate 2.0 2.0 03/18/17 03/18/17 08:02 08:02 Pulse 60 60 B/P (MAP) 158/62 158/62 Intake and Output 03/17/17 03/17/17 03/18/17 15:00 23:00 07:00 Intake Total 600 ml 200 ml Balance 600 ml 200 ml CATHIE KNIGHT MD Mar 18, 2017 10:07
[2017-03-18 10:42] VITALS: BP 157/53
--- NOTE | 2017-03-18 10:46 | RAD ---
Three-view left shoulder study History: Left shoulder pain. Difficulty elevating the left shoulder. Findings: No acute fracture or dislocation or osteolytic process is seen. No AC joint separation is seen. No significant arthritic change is evident. IMPRESSION: No acute fracture.
--- NOTE | 2017-03-18 12:26 | PDOC ---
PROGRESS NOTES Subjective Subjective Pt feeling better Chest pain has resolved - was related to pacemaker Still complains of left shoulder pain No new complaints Objective Objective Vital Signs Date Time Temp Pulse Resp B/P (MAP) Pulse Ox O2 Delivery O2 Flow Rate FiO2 03/18/17 10:42 97.0 60 16 157/53 (87) 94 Room Air 97.0 03/18/17 08:00 2.0 Intake and Output 03/18/17 07:00 Intake Total 800 ml Balance 800 ml Intake Oral 800 ml # Voids 4 Physical Exam Physical Exam No changes to cardiac exam Abdomen: Normal bowel sounds, Soft Heart: Regular rate, Normal S1, Normal S2 Extremities: No edema Lungs: Clear to auscultation Assessment Assessment OK to DC from cardiac standpoint Comment Review of Relevant I have reviewed the following items nolan (where applicable) has been applied. Labs Laboratory Tests Test 03/16/17 16:21 03/16/17 20:19 03/17/17 05:00 03/17/17 07:15 Glucose (Fingerstick) 163 mg/dL (70-99) 106 mg/dL (70-99) 109 mg/dL (70-99) White Blood Count 8.1 x10^3/uL (4.0-11.0) Red Blood Count 4.59 x10^6/uL (3.50-5.40) Hemoglobin 12.3 g/dL (12.0-15.5) Hematocrit 38.8 % (36.0-47.0) Mean Corpuscular Volume 85 fL (79-100) Mean Corpuscular Hemoglobin 27 pg (25-35) Mean Corpuscular Hemoglobin Concent 32 g/dL (31-37) Red Cell Distribution Width 16.5 % (11.5-14.5) Platelet Count 370 x10^3/uL (140-400) Neutrophils (%) (Auto) 72 % (31-73) Lymphocytes (%) (Auto) 20 % (24-48) Monocytes (%) (Auto) 7 % (0-9) Eosinophils (%) (Auto) 1 % (0-3) Basophils (%) (Auto) 0 % (0-3) Neutrophils # (Auto) 5.8 x10^3uL (1.8-7.7) Lymphocytes # (Auto) 1.6 x10^3/uL (1.0-4.8) Monocytes # (Auto) 0.6 x10^3/uL (0.0-1.1) Eosinophils # (Auto) 0.1 x10^3/uL (0.0-0.7) Basophils # (Auto) 0.0 x10^3/uL (0.0-0.2) Sodium Level 138 mmol/L (136-145) Potassium Level 4.3 mmol/L (3.5-5.1) Chloride Level 95 mmol/L (98-107) Carbon Dioxide Level 40 mmol/L (21-32) Anion Gap 3 (6-14) Blood Urea Nitrogen 16 mg/dL (7-20) Creatinine 1.0 mg/dL (0.6-1.0) Estimated GFR (Cockcroft-Gault) 67.8 Glucose Level 134 mg/dL (70-99) Calcium Level 9.6 mg/dL (8.5-10.1) Test 03/17/17 11:11 03/17/17 16:31 03/17/17 21:55 03/18/17 04:40 Glucose (Fingerstick) 97 mg/dL (70-99) 137 mg/dL (70-99) 122 mg/dL (70-99) White Blood Count 7.8 x10^3/uL (4.0-11.0) Red Blood Count 4.41 x10^6/uL (3.50-5.40) Hemoglobin 11.7 g/dL (12.0-15.5) Hematocrit 37.3 % (36.0-47.0) Mean Corpuscular Volume 85 fL (79-100) Mean Corpuscular Hemoglobin 27 pg (25-35) Mean Corpuscular Hemoglobin Concent 32 g/dL (31-37) Red Cell Distribution Width 16.8 % (11.5-14.5) Platelet Count 347 x10^3/uL (140-400) Neutrophils (%) (Auto) 69 % (31-73) Lymphocytes (%) (Auto) 22 % (24-48) Monocytes (%) (Auto) 8 % (0-9) Eosinophils (%) (Auto) 1 % (0-3) Basophils (%) (Auto) 0 % (0-3) Neutrophils # (Auto) 5.4 x10^3uL (1.8-7.7) Lymphocytes # (Auto) 1.7 x10^3/uL (1.0-4.8) Monocytes # (Auto) 0.7 x10^3/uL (0.0-1.1) Eosinophils # (Auto) 0.1 x10^3/uL (0.0-0.7) Basophils # (Auto) 0.0 x10^3/uL (0.0-0.2) Sodium Level 142 mmol/L (136-145) Potassium Level 4.0 mmol/L (3.5-5.1) Chloride Level 96 mmol/L (98-107) Carbon Dioxide Level 40 mmol/L (21-32) Anion Gap 6 (6-14) Blood Urea Nitrogen 20 mg/dL (7-20) Creatinine 1.1 mg/dL (0.6-1.0) Estimated GFR (Cockcroft-Gault) 60.7 Glucose Level 117 mg/dL (70-99) Calcium Level 9.6 mg/dL (8.5-10.1) Test 03/18/17 07:29 03/18/17 11:11 Glucose (Fingerstick) 116 mg/dL (70-99) 129 mg/dL (70-99) Laboratory Tests Test 03/17/17 16:31 03/17/17 21:55 03/18/17 04:40 03/18/17 07:29 Glucose (Fingerstick) 137 mg/dL (70-99) 122 mg/dL (70-99) 116 mg/dL (70-99) White Blood Count 7.8 x10^3/uL (4.0-11.0) Red Blood Count 4.41 x10^6/uL (3.50-5.40) Hemoglobin 11.7 g/dL (12.0-15.5) Hematocrit 37.3 % (36.0-47.0) Mean Corpuscular Volume 85 fL (79-100) Mean Corpuscular Hemoglobin 27 pg (25-35) Mean Corpuscular Hemoglobin Concent 32 g/dL (31-37) Red Cell Distribution Width 16.8 % (11.5-14.5) Platelet Count 347 x10^3/uL (140-400) Neutrophils (%) (Auto) 69 % (31-73) Lymphocytes (%) (Auto) 22 % (24-48) Monocytes (%) (Auto) 8 % (0-9) Eosinophils (%) (Auto) 1 % (0-3) Basophils (%) (Auto) 0 % (0-3) Neutrophils # (Auto) 5.4 x10^3uL (1.8-7.7) Lymphocytes # (Auto) 1.7 x10^3/uL (1.0-4.8) Monocytes # (Auto) 0.7 x10^3/uL (0.0-1.1) Eosinophils # (Auto) 0.1 x10^3/uL (0.0-0.7) Basophils # (Auto) 0.0 x10^3/uL (0.0-0.2) Sodium Level 142 mmol/L (136-145) Potassium Level 4.0 mmol/L (3.5-5.1) Chloride Level 96 mmol/L (98-107) Carbon Dioxide Level 40 mmol/L (21-32) Anion Gap 6 (6-14) Blood Urea Nitrogen 20 mg/dL (7-20) Creatinine 1.1 mg/dL (0.6-1.0) Estimated GFR (Cockcroft-Gault) 60.7 Glucose Level 117 mg/dL (70-99) Calcium Level 9.6 mg/dL (8.5-10.1) Test 03/18/17 11:11 Glucose (Fingerstick) 129 mg/dL (70-99) Medications Current Medications Hydromorphone HCl (Dilaudid) 0.5 mg PRN Q30MIN PRN IV SEVERE PAIN Last administered on 03/13/17 12:26; Start 03/13/17 at 10:30 Ondansetron HCl (Zofran) 4 mg 1X ONCE IV Last administered on 03/13/17 11:13 ; Start 03/13/17 at 10:30; Stop 03/13/17 at 10:31; Status DC Ondansetron HCl (Zofran) 4 mg PRN Q8HRS PRN IV NAUSEA/VOMITING; Start at 12:30; Stop 03/13/17 at 13:20; Status DC Morphine Sulfate 2 mg PRN Q2HR PRN IV PAIN; Start 03/13/17 at 12:30; Stop at 12:29; Status DC Labetalol HCl (Normodyne) 20 mg 1X ONCE IVP ; Start 03/13/17 at 13:15; Stop 03/13/17 at 13:16; Status DC Ondansetron HCl (Zofran) 4 mg PRN Q6HRS PRN IV NAUSEA/VOMITING; Start at 13:30 Labetalol HCl (Normodyne) 20 mg PRN Q2HR PRN IVP HYPERTENSION, SEE COMMENTS Last administered on 03/13/17 15:19; Start 03/13/17 at 13:30 Acetaminophen (Tylenol) 650 mg PRN Q6HRS PRN PO fever Last administered on 08:12; Start 03/13/17 at 13:30 Aspirin (Ecotrin) 81 mg DAILY PO Last administered on 03/18/17 08:01; Start 03/13/17 at 14:00 Atorvastatin Calcium (Lipitor) 20 mg HS PO Last administered on 03/17/17 21: 23; Start 03/13/17 at 21:00 Clopidogrel Bisulfate (Plavix) 75 mg DAILY PO Last administered on 03/18/17 08:01; Start 03/13/17 at 13:00 Ergocalciferol (Vitamin D2) 50,000 unit Mo PO Last administered on 03/17/17 07:59; Start 03/17/17 at 09:00 Famotidine (Pepcid) 20 mg BID PO Last administered on 03/18/17 08:01; Start 03/13/17 at 21:00 Ferrous Sulfate (Feosol) 325 mg DAILY08 PO Last administered on 03/18/17 08: 01; Start 03/13/17 at 14:00 Furosemide (Lasix) 80 mg BID92 PO Last administered on 03/18/17 08:01; Start 03/13/17 at 14:00 Insulin Aspart (NovoLOG) 20 units TIDWMEALS SQ Last administered on 03/18/17 08:24; Start 03/13/17 at 17:00 Insulin Detemir (Levemir) 32 units BID SQ Last administered on 03/18/17 08:25 ; Start 03/13/17 at 21:00 Metoprolol Tartrate (Lopressor) 50 mg BID PO Last administered on 03/18/17 08 :02; Start 03/13/17 at 14:00 Oxycodone/ Acetaminophen (Percocet 10/325) 1 tab PRN QID PRN PO PAIN Last administered on 03/14/17 08:13; Start 03/13/17 at 13:30 Oxycodone/ Acetaminophen (Percocet 10/325) 2 tab PRN Q6HRS PRN PO PAIN Last administered on 03/18/17 03:31; Start 03/13/17 at 13:30 Vitamin B Complex (Vishnu B) 1 tab DAILY PO Last administered on 03/18/17 08:01 ; Start 03/13/17 at 14:00 Losartan Potassium (Cozaar) 100 mg DAILY PO Last administered on 03/18/17 08: 02; Start 03/13/17 at 14:00 Potassium Chloride (Klor-Con) 10 meq BIDWMEALS PO Last administered on 08:01; Start 03/14/17 at 08:00 Nitroglycerin (Nitrostat) 0.4 mg PRN Q5MIN PRN SL CHEST PAIN; Start 03/13/17 at 13:30 Insulin Aspart (NovoLOG) 0-9 UNITS TIDWMEALS SQ Last administered on 17:34; Start 03/13/17 at 17:00 Dextrose (Dextrose 50%-Water Syringe) 12.5 gm PRN Q15MIN PRN IV SEE COMMENTS; Start 03/13/17 at 13:30 Zolpidem Tartrate (Ambien) 5 mg PRN QHS PRN PO INSOMNIA Last administered on 22:16; Start 03/16/17 at 12:45 Active Scripts Active B Complex (Vitamin B Complex) 1 Each Tablet 1 Each PO DAILY Percocet 10-325 Mg Tablet (Oxycodone/Acetaminophen) 1 Each Tablet 2 Tab PO PRN Q6HRS PRN Vitamin D2 (Ergocalciferol (Vitamin D2)) 50,000 Unit Capsule 50,000 Unit PO WEEKLY Losartan Potassium 100 Mg Tablet 100 Mg PO DAILY 60 Days Percocet 10-325 Mg Tablet (Oxycodone/Acetaminophen) 1 Each Tablet 1 Tab PO Q6- 8HRS PRN Lasix (Furosemide) 80 Mg Tablet 1 Tab PO BID Reported Metoprolol Tartrate 50 Mg Tablet 1 Tab PO BID Ferrous Sulfate 325 Mg Tablet 1 Tab PO DAILY NITROGLYCERIN SubLingual (Nitroglycerin) 0.4 Mg Tab.subl 0.4 Mg SL PRN Q5MIN PRN Levemir Flextouch (Insulin Detemir) 100 Unit/1 Ml Insuln.pen 32 Unit SQ BID Novolog Flexpen (Insulin Aspart) 100 Unit/1 Ml Insuln.pen 20 Unit SQ TIDWMEALS Atorvastatin Calcium 20 Mg Tablet 20 Mg PO HS Potassium Chloride 10 Meq Capsule.er 10 Meq PO BID Aspir 81 (Aspirin) 81 Mg Tablet.dr 1 Tab PO DAILY Clopidogrel (Clopidogrel Bisulfate) 75 Mg Tablet 1 Tab PO DAILY Famotidine 20 Mg Tablet 20 Mg PO BID Vitals/I & O Vital Sign - Last 24 Hours 03/17/17 03/17/17 03/17/17 03/17/17 15:00 15:31 19:30 20:00 Temp 97.9 98.1 97.9 98.1 Pulse 68 60 Resp 20 18 18 B/P (MAP) 129/59 (82) 147/58 (87) Pulse Ox 94 93 98 O2 Delivery Nasal Cannula Room Air Room Air Room Air O2 Flow Rate 1.0 1.0 03/17/17 03/17/17 03/17/17 03/18/17 21:22 21:22 23:30 03:31 Temp 99.9 99.9 Pulse 60 57 Resp 20 18 20 B/P (MAP) 147/58 132/53 (79) Pulse Ox 92 O2 Delivery Room Air Room Air Nasal Cannula 03/18/17 03/18/17 03/18/17 03/18/17 03:34 07:00 08:00 08:00 Temp 97.9 98.1 97.9 98.1 Pulse 64 60 Resp 18 17 18 B/P (MAP) 152/58 (89) 158/62 (94) Pulse Ox 93 99 99 O2 Delivery Room Air Nasal Cannula Room Air Room Air O2 Flow Rate 2.0 2.0 2.0 03/18/17 03/18/17 03/18/17 08:02 08:02 10:42 Temp 97.0 97.0 Pulse 60 60 60 Resp 16 B/P (MAP) 158/62 158/62 157/53 (87) Pulse Ox 94 O2 Delivery Room Air Intake and Output 12/03/17/17 03/18/17 15:00 23:00 07:00 Intake Total 600 ml 200 ml Balance 600 ml 200 ml LIZBET LINDSAY MD Mar 18, 2017 12:26
[2017-03-18 14:48] VITALS: BP 148/57
[2017-03-18 19:00] VITALS: BP 170/59
[2017-03-18] MEDS: ATORVASTATIN CALCIUM 20 MG TABLET PO SCH (20:52)
[2017-03-18] MEDS: ZOLPIDEM 5 MG TABLET. PO PRN (22:30)
[2017-03-18 22:32] VITALS: BP 129/51
--- NOTE | 2017-03-19 00:28 | CONS ---
DATE OF CONSULTATION: 03/18/2017 I saw her on 03/18/2017 at the request of Dr. James. HISTORY OF PRESENT ILLNESS: This is a 62-year-old female known to me. The patient with chronic lower back pain from degenerative disk disease and degenerative joint disease of lumbar vertebrae and also diabetes mellitus with peripheral neuropathy with high level balance problems, had permanent pacemaker placed about 2 weeks ago, she started having left-sided chest wall and shoulder area pain and admitted on 03/13/2017. The patient had a cardiac workup, which is negative. X-rays of the shoulder failed to reveal any abnormality. The patient with known coronary artery disease, congestive heart failure, hypertension, diabetes mellitus, status post appendectomy, left total knee arthroplasty, family history of diabetes mellitus. She uses a walker to get around. She is not known allergic to any medication. PHYSICAL EXAMINATION: Today revealed a middle-aged female. She is alert, oriented to time, place, person and circumstance and follows commands appropriately, moves all 4 extremities voluntarily where she had 4+/5 grade muscle strength. She had some tenderness to palpation over anterior aspect of left shoulder and some limitation of left shoulder abduction and external rotation at the extremes. The patient had equal perception of touch and pinprick sensation bilaterally. Deep tendon reflexes are decreased to absent overall, she is independent with bed mobility and transfers and up walking without any difficulty. She uses a walker to walk. She had crepitus on range of motion of right knee joint without any obvious knee joint effusion and she had localized tenderness to palpation over sacroiliac joint area and straight leg raising test is negative bilaterally. ASSESSMENT: Tendinitis and mild case of frozen shoulder, left in a patient status post left-sided pacemaker placement done about 2 weeks ago. Also, the patient with known coronary artery disease, hypertension, congestive heart failure, diabetes mellitus with peripheral neuropathy, degenerative joint disease of right knee without any significant pain and chronic lower back pain from degenerative disk disease of lumbar vertebrae without any clinical evidence of lumbar radiculopathy and high level balance problems from diabetic peripheral neuropathy. RECOMMENDATIONS: I have instructed in a home program of physical modalities and range of motion exercise to her left shoulder and she was advised about outpatient physical therapy. She would like to first try to take care of herself at home. Dr. James, appreciate asking me to participate in the care of this interesting patient. I will be glad to follow her with you as needed for her rehabilitation. Agree with the plans for discharge to home when medically stable. TASHI RESTREPO MD DR: JENAE/amrik JOB#: [id number] / [id number]
[2017-03-19] MEDS: oxyCODONE/APAP 10/325 1 TAB TABLET PO PRN ×2 (00:43→07:29)
[2017-03-19 02:33] VITALS: BP 136/64
[2017-03-19 06:16] LABS: BASO % 0 % (0-3); EOS % 1 % (0-3); HEMATOCRIT 35.7 % (36.0-47.0); HEMOGLOBIN 11.4 g/dL (12.0-15.5); LYMPH # 1.9 x10^3/uL (1.0-4.8); LYMPH % 23 % (24-48); MEAN CORPUSCULAR HEMOGLOBIN 27 pg (25-35); MEAN CORPUSCULAR HGB CONC 32 g/dL (31-37); MEAN CORPUSCULAR VOLUME 85 fL (79-100); MONO % 8 % (0-9); NEUT % 68 % (31-73); PLATELET COUNT 313 x10^3/uL (140-400); RED BLOOD COUNT 4.22 x10^6/uL (3.50-5.40); RED CELL DISTRIBUTION WIDTH 16.2 % (11.5-14.5); WHITE BLOOD COUNT 8.4 x10^3/uL (4.0-11.0)
[2017-03-19 06:26] LABS: CALCIUM 9.3 mg/dL (8.5-10.1); CREATININE 1.1 mg/dL (0.6-1.0); GFR 60.7
[2017-03-19 07:00] VITALS: BP 151/65
[2017-03-19] MEDS: INSULIN ASPART 300 UNITS/3 ML INSULN.PEN SQ SCH ×2 (08:00→08:29)
[2017-03-19] MEDS: VITAMIN B COMPLEX TABLET. PO SCH (08:25)
[2017-03-19] MEDS: POTASSIUM CHLORIDE 10 MEQ TABLET.ER. PO SCH (08:25)
[2017-03-19] MEDS: ASPIRIN ENTERIC COATED 81 MG TABLET.DR. PO SCH (08:25)
[2017-03-19] MEDS: FERROUS SULFATE 325 MG TABLET. PO SCH (08:25)
[2017-03-19] MEDS: CLOPIDOGREL BISULFATE 75 MG TABLET PO SCH (08:25)
[2017-03-19] MEDS: FAMOTIDINE 20 MG TABLET. PO SCH (08:26)
[2017-03-19] MEDS: METOPROLOL TART IMMED RELEASE 50 MG TABLET. PO SCH (08:26)
[2017-03-19] MEDS: FUROSEMIDE 80 MG TABLET. PO SCH (08:26)
[2017-03-19 08:27] VITALS: BP 151/65
[2017-03-19] MEDS: LOSARTAN POTASSIUM 50 MG TABLET. PO SCH (08:27)
[2017-03-19] MEDS: INSULIN DETEMIR 300 UNITS/3 ML INSULN.PEN. SQ SCH (08:30)
--- NOTE | 2017-03-19 09:03 | PDOC ---
PROGRESS NOTES Subjective Subjective She feels better. Objective Objective Vital Signs Date Time Temp Pulse Resp B/P (MAP) Pulse Ox O2 Delivery O2 Flow Rate FiO2 03/19/17 08:31 18 95 Room Air 2.0 03/19/17 08:27 68 151/65 03/19/17 07:00 97.9 97.9 Intake and Output 03/19/17 06:59 Intake Total 1760 ml Balance 1760 ml Intake Oral 1760 ml # Voids 3 Physical Exam Physical Exam She continues with tenderness to palpation over left shoulder with pain on active ROM and some limitation of abduction at extremes. Plan Plan of Care I have gone over with home exercises to help ease her pain from left shoulder tendinitis and she feels comfortable to try at home rather than going to out patient physical therapy. Comment Review of Relevant I have reviewed the following items nolan (where applicable) has been applied. Labs Laboratory Tests Test 03/17/17 11:11 03/17/17 16:31 03/17/17 21:55 03/18/17 04:40 Glucose (Fingerstick) 97 mg/dL (70-99) 137 mg/dL (70-99) 122 mg/dL (70-99) White Blood Count 7.8 x10^3/uL (4.0-11.0) Red Blood Count 4.41 x10^6/uL (3.50-5.40) Hemoglobin 11.7 g/dL (12.0-15.5) Hematocrit 37.3 % (36.0-47.0) Mean Corpuscular Volume 85 fL (79-100) Mean Corpuscular Hemoglobin 27 pg (25-35) Mean Corpuscular Hemoglobin Concent 32 g/dL (31-37) Red Cell Distribution Width 16.8 % (11.5-14.5) Platelet Count 347 x10^3/uL (140-400) Neutrophils (%) (Auto) 69 % (31-73) Lymphocytes (%) (Auto) 22 % (24-48) Monocytes (%) (Auto) 8 % (0-9) Eosinophils (%) (Auto) 1 % (0-3) Basophils (%) (Auto) 0 % (0-3) Neutrophils # (Auto) 5.4 x10^3uL (1.8-7.7) Lymphocytes # (Auto) 1.7 x10^3/uL (1.0-4.8) Monocytes # (Auto) 0.7 x10^3/uL (0.0-1.1) Eosinophils # (Auto) 0.1 x10^3/uL (0.0-0.7) Basophils # (Auto) 0.0 x10^3/uL (0.0-0.2) Sodium Level 142 mmol/L (136-145) Potassium Level 4.0 mmol/L (3.5-5.1) Chloride Level 96 mmol/L (98-107) Carbon Dioxide Level 40 mmol/L (21-32) Anion Gap 6 (6-14) Blood Urea Nitrogen 20 mg/dL (7-20) Creatinine 1.1 mg/dL (0.6-1.0) Estimated GFR (Cockcroft-Gault) 60.7 Glucose Level 117 mg/dL (70-99) Calcium Level 9.6 mg/dL (8.5-10.1) Test 03/18/17 07:29 03/18/17 11:11 03/18/17 16:24 03/18/17 20:19 Glucose (Fingerstick) 116 mg/dL (70-99) 129 mg/dL (70-99) 172 mg/dL (70-99) 103 mg/dL (70-99) Test 03/19/17 04:40 03/19/17 07:55 White Blood Count 8.4 x10^3/uL (4.0-11.0) Red Blood Count 4.22 x10^6/uL (3.50-5.40) Hemoglobin 11.4 g/dL (12.0-15.5) Hematocrit 35.7 % (36.0-47.0) Mean Corpuscular Volume 85 fL (79-100) Mean Corpuscular Hemoglobin 27 pg (25-35) Mean Corpuscular Hemoglobin Concent 32 g/dL (31-37) Red Cell Distribution Width 16.2 % (11.5-14.5) Platelet Count 313 x10^3/uL (140-400) Neutrophils (%) (Auto) 68 % (31-73) Lymphocytes (%) (Auto) 23 % (24-48) Monocytes (%) (Auto) 8 % (0-9) Eosinophils (%) (Auto) 1 % (0-3) Basophils (%) (Auto) 0 % (0-3) Neutrophils # (Auto) 5.7 x10^3uL (1.8-7.7) Lymphocytes # (Auto) 1.9 x10^3/uL (1.0-4.8) Monocytes # (Auto) 0.7 x10^3/uL (0.0-1.1) Eosinophils # (Auto) 0.1 x10^3/uL (0.0-0.7) Basophils # (Auto) 0.0 x10^3/uL (0.0-0.2) Sodium Level 139 mmol/L (136-145) Potassium Level 4.0 mmol/L (3.5-5.1) Chloride Level 96 mmol/L (98-107) Carbon Dioxide Level 38 mmol/L (21-32) Anion Gap 5 (6-14) Blood Urea Nitrogen 22 mg/dL (7-20) Creatinine 1.1 mg/dL (0.6-1.0) Estimated GFR (Cockcroft-Gault) 60.7 Glucose Level 146 mg/dL (70-99) Calcium Level 9.3 mg/dL (8.5-10.1) Glucose (Fingerstick) 117 mg/dL (70-99) Laboratory Tests Test 03/18/17 11:11 03/18/17 16:24 03/18/17 20:19 03/19/17 04:40 Glucose (Fingerstick) 129 mg/dL (70-99) 172 mg/dL (70-99) 103 mg/dL (70-99) White Blood Count 8.4 x10^3/uL (4.0-11.0) Red Blood Count 4.22 x10^6/uL (3.50-5.40) Hemoglobin 11.4 g/dL (12.0-15.5) Hematocrit 35.7 % (36.0-47.0) Mean Corpuscular Volume 85 fL (79-100) Mean Corpuscular Hemoglobin 27 pg (25-35) Mean Corpuscular Hemoglobin Concent 32 g/dL (31-37) Red Cell Distribution Width 16.2 % (11.5-14.5) Platelet Count 313 x10^3/uL (140-400) Neutrophils (%) (Auto) 68 % (31-73) Lymphocytes (%) (Auto) 23 % (24-48) Monocytes (%) (Auto) 8 % (0-9) Eosinophils (%) (Auto) 1 % (0-3) Basophils (%) (Auto) 0 % (0-3) Neutrophils # (Auto) 5.7 x10^3uL (1.8-7.7) Lymphocytes # (Auto) 1.9 x10^3/uL (1.0-4.8) Monocytes # (Auto) 0.7 x10^3/uL (0.0-1.1) Eosinophils # (Auto) 0.1 x10^3/uL (0.0-0.7) Basophils # (Auto) 0.0 x10^3/uL (0.0-0.2) Sodium Level 139 mmol/L (136-145) Potassium Level 4.0 mmol/L (3.5-5.1) Chloride Level 96 mmol/L (98-107) Carbon Dioxide Level 38 mmol/L (21-32) Anion Gap 5 (6-14) Blood Urea Nitrogen 22 mg/dL (7-20) Creatinine 1.1 mg/dL (0.6-1.0) Estimated GFR (Cockcroft-Gault) 60.7 Glucose Level 146 mg/dL (70-99) Calcium Level 9.3 mg/dL (8.5-10.1) Test 03/19/17 07:55 Glucose (Fingerstick) 117 mg/dL (70-99) Medications Current Medications Hydromorphone HCl (Dilaudid) 0.5 mg PRN Q30MIN PRN IV SEVERE PAIN Last administered on 03/13/17t 12:26; Start 03/13/17 at 10:30 Ondansetron HCl (Zofran) 4 mg 1X ONCE IV Last administered on 03/13/17 11:13 ; Start 03/13/17 at 10:30; Stop 03/13/17 at 10:31; Status DC Ondansetron HCl (Zofran) 4 mg PRN Q8HRS PRN IV NAUSEA/VOMITING; Start at 12:30; Stop 03/13/17 at 13:20; Status DC Morphine Sulfate 2 mg PRN Q2HR PRN IV PAIN; Start 03/13/17 at 12:30; Stop at 12:29; Status DC Labetalol HCl (Normodyne) 20 mg 1X ONCE IVP ; Start 03/13/17 at 13:15; Stop 03/13/17 at 13:16; Status DC Ondansetron HCl (Zofran) 4 mg PRN Q6HRS PRN IV NAUSEA/VOMITING; Start at 13:30 Labetalol HCl (Normodyne) 20 mg PRN Q2HR PRN IVP HYPERTENSION, SEE COMMENTS Last administered on 03/13/17 15:19; Start 03/13/17 at 13:30 Acetaminophen (Tylenol) 650 mg PRN Q6HRS PRN PO fever Last administered on 08:12; Start 03/13/17 at 13:30 Aspirin (Ecotrin) 81 mg DAILY PO Last administered on 03/19/17 08:25; Start 03/13/17 at 14:00 Atorvastatin Calcium (Lipitor) 20 mg HS PO Last administered on 03/18/17 20: 52; Start 03/13/17 at 21:00 Clopidogrel Bisulfate (Plavix) 75 mg DAILY PO Last administered on 03/19/17 08:25; Start 03/13/17 at 13:00 Ergocalciferol (Vitamin D2) 50,000 unit Mo PO Last administered on 03/17/17 07:59; Start 03/17/17 at 09:00 Famotidine (Pepcid) 20 mg BID PO Last administered on 03/19/17 08:26; Start 03/13/17 at 21:00 Ferrous Sulfate (Feosol) 325 mg DAILY08 PO Last administered on 03/19/17 08: 25; Start 03/13/17 at 14:00 Furosemide (Lasix) 80 mg BID92 PO Last administered on 03/19/17 08:26; Start 03/13/17 at 14:00 Insulin Aspart (NovoLOG) 20 units TIDWMEALS SQ Last administered on 03/19/17 08:29; Start 03/13/17 at 17:00 Insulin Detemir (Levemir) 32 units BID SQ Last administered on 03/19/17 08:30 ; Start 03/13/17 at 21:00 Metoprolol Tartrate (Lopressor) 50 mg BID PO Last administered on 03/19/17 08 :26; Start 03/13/17 at 14:00 Oxycodone/ Acetaminophen (Percocet 10/325) 1 tab PRN QID PRN PO PAIN Last administered on 03/14/17 08:13; Start 03/13/17 at 13:30 Oxycodone/ Acetaminophen (Percocet 10/325) 2 tab PRN Q6HRS PRN PO PAIN Last administered on 03/19/17 07:29; Start 03/13/17 at 13:30 Vitamin B Complex (Vishnu B) 1 tab DAILY PO Last administered on 03/19/17 08:25 ; Start 03/13/17 at 14:00 Losartan Potassium (Cozaar) 100 mg DAILY PO Last administered on 03/19/17 08: 27; Start 03/13/17 at 14:00 Potassium Chloride (Klor-Con) 10 meq BIDWMEALS PO Last administered on 08:25; Start 03/14/17 at 08:00 Nitroglycerin (Nitrostat) 0.4 mg PRN Q5MIN PRN SL CHEST PAIN; Start 03/13/17 at 13:30 Insulin Aspart (NovoLOG) 0-9 UNITS TIDWMEALS SQ Last administered on 17:00; Start 03/13/17 at 17:00 Dextrose (Dextrose 50%-Water Syringe) 12.5 gm PRN Q15MIN PRN IV SEE COMMENTS; Start 03/13/17 at 13:30 Zolpidem Tartrate (Ambien) 5 mg PRN QHS PRN PO INSOMNIA Last administered on 22:30; Start 03/16/17 at 12:45 Active Scripts Active B Complex (Vitamin B Complex) 1 Each Tablet 1 Each PO DAILY Percocet 10-325 Mg Tablet (Oxycodone/Acetaminophen) 1 Each Tablet 2 Tab PO PRN Q6HRS PRN Vitamin D2 (Ergocalciferol (Vitamin D2)) 50,000 Unit Capsule 50,000 Unit PO WEEKLY Losartan Potassium 100 Mg Tablet 100 Mg PO DAILY 60 Days Percocet 10-325 Mg Tablet (Oxycodone/Acetaminophen) 1 Each Tablet 1 Tab PO Q6- 8HRS PRN Lasix (Furosemide) 80 Mg Tablet 1 Tab PO BID Reported Metoprolol Tartrate 50 Mg Tablet 1 Tab PO BID Ferrous Sulfate 325 Mg Tablet 1 Tab PO DAILY NITROGLYCERIN SubLingual (Nitroglycerin) 0.4 Mg Tab.subl 0.4 Mg SL PRN Q5MIN PRN Levemir Flextouch (Insulin Detemir) 100 Unit/1 Ml Insuln.pen 32 Unit SQ BID Novolog Flexpen (Insulin Aspart) 100 Unit/1 Ml Insuln.pen 20 Unit SQ TIDWMEALS Atorvastatin Calcium 20 Mg Tablet 20 Mg PO HS Potassium Chloride 10 Meq Capsule.er 10 Meq PO BID Aspir 81 (Aspirin) 81 Mg Tablet.dr 1 Tab PO DAILY Clopidogrel (Clopidogrel Bisulfate) 75 Mg Tablet 1 Tab PO DAILY Famotidine 20 Mg Tablet 20 Mg PO BID Vitals/I & O Vital Sign - Last 24 Hours 03/18/17 03/18/17 03/18/17 03/18/17 10:42 12:25 14:48 18:35 Temp 97.0 96.0 97.0 96.0 Pulse 60 60 Resp 16 18 16 18 B/P (MAP) 157/53 (87) 148/57 (87) Pulse Ox 94 94 96 96 O2 Delivery Room Air Room Air Room Air Room Air O2 Flow Rate 2.0 2.0 03/18/17 03/18/17 03/18/17 03/18/17 19:00 20:08 20:52 22:32 Temp 99.5 98.8 99.5 98.8 Pulse 94 94 68 Resp 18 16 B/P (MAP) 170/59 (96) 170/59 129/51 (77) Pulse Ox 97 94 O2 Delivery Room Air Nasal Cannula Room Air O2 Flow Rate 2.0 03/19/17 03/19/17 03/19/17 03/19/17 02:33 07:00 07:29 08:26 Temp 98.1 97.9 98.1 97.9 Pulse 63 68 68 Resp 19 18 18 B/P (MAP) 136/64 (88) 151/65 (93) 151/65 Pulse Ox 95 93 95 O2 Delivery Nasal Cannula Nasal Cannula Room Air O2 Flow Rate 2.0 2.0 2.0 03/19/17 03/19/17 08:27 08:31 Pulse 68 Resp 18 B/P (MAP) 151/65 Pulse Ox 95 O2 Delivery Room Air O2 Flow Rate 2.0 Intake and Output 03/18/17 03/18/17 03/19/17 14:59 22:59 06:59 Intake Total 360 ml 1400 ml Balance 360 ml 1400 ml TASHI RESTREPO MD Mar 19, 2017 09:02
--- NOTE | 2017-03-19 11:49 | PDOC3 ---
Discharge Summary Visit Information Date of Admission: Mar 13, 2017 Date of Discharge: Mar 19, 2017 Admitting Diagnosis Comment: Left shoulder pain Chest pain mainly at the pacer site area, MSK Recent pacemaker implantation for "fast heart rate" Hypertension uncontrolled Accelerated hypertension present on admission- will add when necessary labetalol IV Diabetes type 2 Obesity with a BMI 42.2 Brief Hospital Course Allergies Allergies Coded Allergies Type Severity Reaction Last Updated Verified No Known Drug Allergies 08/01/13 No Vital Signs Vital Signs Date Time Temp Pulse Resp B/P (MAP) Pulse Ox O2 Delivery O2 Flow Rate FiO2 03/19/17 08:31 18 95 Room Air 2.0 03/19/17 08:27 68 151/65 03/19/17 07:00 97.9 97.9 Lab Results Laboratory Tests Test 03/17/17 16:31 03/17/17 21:55 03/18/17 04:40 03/18/17 07:29 Glucose (Fingerstick) 137 mg/dL (70-99) 122 mg/dL (70-99) 116 mg/dL (70-99) White Blood Count 7.8 x10^3/uL (4.0-11.0) Red Blood Count 4.41 x10^6/uL (3.50-5.40) Hemoglobin 11.7 g/dL (12.0-15.5) Hematocrit 37.3 % (36.0-47.0) Mean Corpuscular Volume 85 fL (79-100) Mean Corpuscular Hemoglobin 27 pg (25-35) Mean Corpuscular Hemoglobin Concent 32 g/dL (31-37) Red Cell Distribution Width 16.8 % (11.5-14.5) Platelet Count 347 x10^3/uL (140-400) Neutrophils (%) (Auto) 69 % (31-73) Lymphocytes (%) (Auto) 22 % (24-48) Monocytes (%) (Auto) 8 % (0-9) Eosinophils (%) (Auto) 1 % (0-3) Basophils (%) (Auto) 0 % (0-3) Neutrophils # (Auto) 5.4 x10^3uL (1.8-7.7) Lymphocytes # (Auto) 1.7 x10^3/uL (1.0-4.8) Monocytes # (Auto) 0.7 x10^3/uL (0.0-1.1) Eosinophils # (Auto) 0.1 x10^3/uL (0.0-0.7) Basophils # (Auto) 0.0 x10^3/uL (0.0-0.2) Sodium Level 142 mmol/L (136-145) Potassium Level 4.0 mmol/L (3.5-5.1) Chloride Level 96 mmol/L (98-107) Carbon Dioxide Level 40 mmol/L (21-32) Anion Gap 6 (6-14) Blood Urea Nitrogen 20 mg/dL (7-20) Creatinine 1.1 mg/dL (0.6-1.0) Estimated GFR (Cockcroft-Gault) 60.7 Glucose Level 117 mg/dL (70-99) Calcium Level 9.6 mg/dL (8.5-10.1) Test 03/18/17 11:11 03/18/17 16:24 03/18/17 20:19 03/19/17 04:40 Glucose (Fingerstick) 129 mg/dL (70-99) 172 mg/dL (70-99) 103 mg/dL (70-99) White Blood Count 8.4 x10^3/uL (4.0-11.0) Red Blood Count 4.22 x10^6/uL (3.50-5.40) Hemoglobin 11.4 g/dL (12.0-15.5) Hematocrit 35.7 % (36.0-47.0) Mean Corpuscular Volume 85 fL (79-100) Mean Corpuscular Hemoglobin 27 pg (25-35) Mean Corpuscular Hemoglobin Concent 32 g/dL (31-37) Red Cell Distribution Width 16.2 % (11.5-14.5) Platelet Count 313 x10^3/uL (140-400) Neutrophils (%) (Auto) 68 % (31-73) Lymphocytes (%) (Auto) 23 % (24-48) Monocytes (%) (Auto) 8 % (0-9) Eosinophils (%) (Auto) 1 % (0-3) Basophils (%) (Auto) 0 % (0-3) Neutrophils # (Auto) 5.7 x10^3uL (1.8-7.7) Lymphocytes # (Auto) 1.9 x10^3/uL (1.0-4.8) Monocytes # (Auto) 0.7 x10^3/uL (0.0-1.1) Eosinophils # (Auto) 0.1 x10^3/uL (0.0-0.7) Basophils # (Auto) 0.0 x10^3/uL (0.0-0.2) Sodium Level 139 mmol/L (136-145) Potassium Level 4.0 mmol/L (3.5-5.1) Chloride Level 96 mmol/L (98-107) Carbon Dioxide Level 38 mmol/L (21-32) Anion Gap 5 (6-14) Blood Urea Nitrogen 22 mg/dL (7-20) Creatinine 1.1 mg/dL (0.6-1.0) Estimated GFR (Cockcroft-Gault) 60.7 Glucose Level 146 mg/dL (70-99) Calcium Level 9.3 mg/dL (8.5-10.1) Test 03/19/17 07:55 Glucose (Fingerstick) 117 mg/dL (70-99) Laboratory Tests Test 03/18/17 16:24 03/18/17 20:19 03/19/17 04:40 03/19/17 07:55 Glucose (Fingerstick) 172 mg/dL (70-99) 103 mg/dL (70-99) 117 mg/dL (70-99) White Blood Count 8.4 x10^3/uL (4.0-11.0) Red Blood Count 4.22 x10^6/uL (3.50-5.40) Hemoglobin 11.4 g/dL (12.0-15.5) Hematocrit 35.7 % (36.0-47.0) Mean Corpuscular Volume 85 fL (79-100) Mean Corpuscular Hemoglobin 27 pg (25-35) Mean Corpuscular Hemoglobin Concent 32 g/dL (31-37) Red Cell Distribution Width 16.2 % (11.5-14.5) Platelet Count 313 x10^3/uL (140-400) Neutrophils (%) (Auto) 68 % (31-73) Lymphocytes (%) (Auto) 23 % (24-48) Monocytes (%) (Auto) 8 % (0-9) Eosinophils (%) (Auto) 1 % (0-3) Basophils (%) (Auto) 0 % (0-3) Neutrophils # (Auto) 5.7 x10^3uL (1.8-7.7) Lymphocytes # (Auto) 1.9 x10^3/uL (1.0-4.8) Monocytes # (Auto) 0.7 x10^3/uL (0.0-1.1) Eosinophils # (Auto) 0.1 x10^3/uL (0.0-0.7) Basophils # (Auto) 0.0 x10^3/uL (0.0-0.2) Sodium Level 139 mmol/L (136-145) Potassium Level 4.0 mmol/L (3.5-5.1) Chloride Level 96 mmol/L (98-107) Carbon Dioxide Level 38 mmol/L (21-32) Anion Gap 5 (6-14) Blood Urea Nitrogen 22 mg/dL (7-20) Creatinine 1.1 mg/dL (0.6-1.0) Estimated GFR (Cockcroft-Gault) 60.7 Glucose Level 146 mg/dL (70-99) Calcium Level 9.3 mg/dL (8.5-10.1) Brief Hospital Course Ms. Laguna is a 62 old [place] Norwegian female who was admitted because of chest pain around the pacer site. She just had a pacer site placed few days ago prior to admission. The pacer site looks okay. Cardiology reconsulted and chest pain or left-sided pain was mostly on the shoulder. I did order an x-ray which revealed no fracture. Physiatry consulted. Recommended some PT OT exercises and she has given this copy. Advised to follow-up as outpatient for for possible injections of no resolve. Discharge disposition to home discharge medications Percocet 10 325 every 6 hours hours when necessary Consults performed Dr. Arias, Dr. Wall Procedures performed none Time discharging 31 minutes. 50% counseling Discharge Information Condition at Discharge: Improved, Stable Disposition/Orders: D/C to Home Scheduled Aspirin (Aspir 81), 1 TAB PO DAILY, (Reported) Atorvastatin Calcium (Atorvastatin Calcium), 20 MG PO HS, (Reported) Clopidogrel Bisulfate (Clopidogrel), 1 TAB PO DAILY, (Reported) Ergocalciferol (Vitamin D2) (Vitamin D2), 50,000 UNIT PO WEEKLY Famotidine (Famotidine), 20 MG PO BID, (Reported) Ferrous Sulfate (Ferrous Sulfate), 1 TAB PO DAILY, (Reported) Furosemide (Lasix), 1 TAB PO BID Insulin Aspart (Novolog Flexpen), 20 UNIT SQ TIDWMEALS, (Reported) Insulin Detemir (Levemir Flextouch), 32 UNIT SQ BID, (Reported) Losartan Potassium (Losartan Potassium), 100 MG PO DAILY Metoprolol Tartrate (Metoprolol Tartrate), 1 TAB PO BID, (Reported) Potassium Chloride (Potassium Chloride), 10 MEQ PO BID, (Reported) Vitamin B Complex (B Complex), 1 EACH PO DAILY Scheduled PRN Nitroglycerin (NITROGLYCERIN SubLingual), 0.4 MG SL PRN Q5MIN PRN for CHEST PAIN , (Reported) Oxycodone/Apap 10-325 (Percocet 10-325 Mg Tablet), 1 TAB PO Q6-8HRS PRN for PAIN Oxycodone/Apap 10-325 (Percocet 10-325 Mg Tablet), 2 TAB PO PRN Q6HRS PRN for PAIN CATHIE KNIGHT MD Mar 19, 2017 11:48
[2017-03-19] MEDS ORDERED: oxyCODONE/APAP 5/325 1 TAB TABLET PO ONE (12:30)
== END 2017-03-19 12:15 | disposition home or self-care (01) | DRG 292 ==
LOC: ER 09:58 → 5 NORTH 11:48 → 5 SOUTH 12:48
PROVIDERS: ADMIT Internal Medicine; ATTEND Internal Medicine
DX: I11.0 Hypertensive heart disease with heart failure (principal); Z68.41 Body mass index [BMI] 40.0-44.9, adult; E11.42 Type 2 diabetes mellitus with diabetic polyneuropathy; Z95.1 Presence of aortocoronary bypass graft; I50.9 Heart failure, unspecified; R07.89 Other chest pain; I25.10 Atherosclerotic heart disease of native coronary artery without angina pectoris; M25.512 Pain in left shoulder; G47.30 Sleep apnea, unspecified; G89.29 Other chronic pain; M47.816 Spondylosis without myelopathy or radiculopathy, lumbar region; M75.00 Adhesive capsulitis of unspecified shoulder; M77.9 Enthesopathy, unspecified; M75.02 Adhesive capsulitis of left shoulder; M17.11 Unilateral primary osteoarthritis, right knee; M51.36 Other intervertebral disc degeneration, lumbar region; Z96.652 Presence of left artificial knee joint; E66.9 Obesity, unspecified; Z83.3 Family history of diabetes mellitus; Z79.82 Long term (current) use of aspirin; Z90.49 Acquired absence of other specified parts of digestive tract; Z90.710 Acquired absence of both cervix and uterus; Z95.0 Presence of cardiac pacemaker; I25.2 Old myocardial infarction
CPT/HCPCS: 36415; 71010; 73030; 80048; 80076; 82962; 83690; 83880; 84484; 85025; 85610; 85730; 93005; 96374; 96375; J1170; J1815; J2405; J3490; 97110; 97116; 99285-25

== ENCOUNTER 2017-03-29 15:46 | Inpatient (IN) | payer OTHER ==
[2017-03-29 17:06] LABS: ADD MAN DIFF? NO
[2017-03-29 17:08] LABS: BASO % 0 % (0-3); EOS # 0.1 x10^3/uL (0.0-0.7); EOS % 1 % (0-3); HEMATOCRIT 36.7 % (36.0-47.0); HEMOGLOBIN 11.6 g/dL (12.0-15.5); LYMPH # 1.8 x10^3/uL (1.0-4.8); LYMPH % 19 % (24-48); MEAN CORPUSCULAR HEMOGLOBIN 27 pg (25-35); MEAN CORPUSCULAR HGB CONC 32 g/dL (31-37); MEAN CORPUSCULAR VOLUME 86 fL (79-100); MONO # 0.7 x10^3/uL (0.0-1.1); MONO % 7 % (0-9); NEUT % 74 % (31-73); PLATELET COUNT 328 x10^3/uL (140-400); RED BLOOD COUNT 4.28 x10^6/uL (3.50-5.40); RED CELL DISTRIBUTION WIDTH 16.7 % (11.5-14.5); WHITE BLOOD COUNT 9.5 x10^3/uL (4.0-11.0)
[2017-03-29] MEDS: MORPHINE SULFATE 2 MG/ML DISP.SYRIN. IV (17:11)
[2017-03-29] MEDS: ASPIRIN CHEWABLE 81 MG TABLET. PO (17:11)
[2017-03-29] MEDS: NITROGLYCERIN SUBLINGUAL 0.4 MG BOTTLE OF 25. SL ×2 (17:11→17:56)
[2017-03-29 17:24] LABS: TROPONINI < 0.017 ng/mL (0.000-0.055)
[2017-03-29 17:24] LABS: ANION GAP 7 (6-14); BLOOD UREA NITROGEN 12 mg/dL (7-20); BUN/CREATININE RATIO 17 (6-20); CALCIUM 9.5 mg/dL (8.5-10.1); CARBON DIOXIDE 37 mmol/L (21-32); CHLORIDE 100 mmol/L (98-107); CREATININE 0.7 mg/dL (0.6-1.0); GFR 102.3; GLUCOSE 69 mg/dL (70-99); POTASSIUM 3.5 mmol/L (3.5-5.1); SODIUM 144 mmol/L (136-145)
[2017-03-29 17:29] LABS: ALBUMIN 3.3 g/dL (3.4-5.0); ALBUMIN/GLOBULIN RATIO 0.7 (1.0-1.7); ALK PHOS 90 U/L (46-116); ALT (SGPT) 18 U/L (14-59); AST (SGOT) 17 U/L (15-37); TOTAL BILIRUBIN 0.3 mg/dL (0.2-1.0)
[2017-03-29 17:30] LABS: NT-PRO BNP 1846 pg/mL (0-124)
[2017-03-29 17:55] LABS: INFLUENZA A PATIENT NEGATIVE (NEGATIVE); INFLUENZA B PATIENT NEGATIVE (NEGATIVE); OBC FLU VALID
[2017-03-29 21:13] LABS: POC GLUCOSE 80 mg/dL (70-99)
[2017-03-29] MEDS ORDERED: NITROGLYCERIN SUBLINGUAL 0.4 MG BOTTLE OF 25. SL (21:15)
[2017-03-29] MEDS: FAMOTIDINE 20 MG TABLET. PO (21:24)
[2017-03-29] MEDS: ATORVASTATIN CALCIUM 20 MG TABLET PO (21:24)
[2017-03-29] MEDS: METOPROLOL TART IMMED RELEASE 50 MG TABLET. PO (21:24)
[2017-03-29] MEDS: FUROSEMIDE 100 MG/10 ML VIAL. IVP (21:25)
[2017-03-29] MEDS: POTASSIUM CHLORIDE 10 MEQ TABLET.ER. PO (21:35)
[2017-03-29] MEDS: oxyCODONE/APAP 10/325 1 TAB TABLET PO ×2 (21:36→22:40)
[2017-03-29] MEDS: INSULIN DETEMIR 300 UNITS/3 ML INSULN.PEN. SQ (22:39)
[2017-03-30 00:21] LABS: TROPONINI < 0.017 ng/mL (0.000-0.055)
[2017-03-30] MEDS: oxyCODONE/APAP 10/325 1 TAB TABLET PO ×4 (04:24→22:55)
[2017-03-30 06:55] LABS: TROPONINI < 0.017 ng/mL (0.000-0.055)
[2017-03-30] MEDS: LOSARTAN POTASSIUM 50 MG TABLET. PO (08:22)
[2017-03-30] MEDS: FUROSEMIDE 80 MG TABLET. PO ×2 (08:22→16:44)
[2017-03-30] MEDS: CLOPIDOGREL BISULFATE 75 MG TABLET PO (08:23)
[2017-03-30] MEDS: METOPROLOL TART IMMED RELEASE 50 MG TABLET. PO ×2 (08:23→20:56)
[2017-03-30] MEDS: ASPIRIN ENTERIC COATED 81 MG TABLET.DR. PO (08:23)
[2017-03-30] MEDS: FERROUS SULFATE 325 MG TABLET. PO (08:23)
[2017-03-30] MEDS: FAMOTIDINE 20 MG TABLET. PO ×2 (08:23→20:55)
[2017-03-30] MEDS: POTASSIUM CHLORIDE 10 MEQ TABLET.ER. PO ×2 (08:23→20:56)
[2017-03-30] MEDS: INSULIN DETEMIR 300 UNITS/3 ML INSULN.PEN. SQ ×2 (08:29→21:03)
[2017-03-30 08:30] LABS: POC GLUCOSE 88 mg/dL (70-99)
[2017-03-30] MEDS: INSULIN ASPART 300 UNITS/3 ML INSULN.PEN SQ ×3 (08:30→16:49)
[2017-03-30] MEDS ORDERED: INSULIN DETEMIR 300 UNITS/3 ML INSULN.PEN. SQ (09:00)
[2017-03-30 11:50] LABS: POC GLUCOSE 102 mg/dL (70-99)
[2017-03-30 16:51] LABS: POC GLUCOSE 67 mg/dL (70-99)
[2017-03-30 18:03] LABS: POC GLUCOSE 97 mg/dL (70-99)
[2017-03-30] MEDS: ATORVASTATIN CALCIUM 20 MG TABLET PO (20:55)
[2017-03-30 21:03] LABS: POC GLUCOSE 118 mg/dL (70-99)
[2017-03-31] MEDS: oxyCODONE/APAP 10/325 1 TAB TABLET PO ×4 (04:57→22:56)
[2017-03-31 05:58] LABS: ADD MAN DIFF? NO
[2017-03-31 06:15] LABS: BASO % 0 % (0-3); EOS # 0.1 x10^3/uL (0.0-0.7); EOS % 1 % (0-3); HEMATOCRIT 37.2 % (36.0-47.0); HEMOGLOBIN 11.4 g/dL (12.0-15.5); LYMPH # 1.9 x10^3/uL (1.0-4.8); LYMPH % 20 % (24-48); MEAN CORPUSCULAR HEMOGLOBIN 27 pg (25-35); MEAN CORPUSCULAR HGB CONC 31 g/dL (31-37); MEAN CORPUSCULAR VOLUME 87 fL (79-100); MONO # 0.7 x10^3/uL (0.0-1.1); MONO % 7 % (0-9); NEUT # 6.8 x10^3uL (1.8-7.7); NEUT % 71 % (31-73); PLATELET COUNT 327 x10^3/uL (140-400); RED CELL DISTRIBUTION WIDTH 16.6 % (11.5-14.5); WHITE BLOOD COUNT 9.6 x10^3/uL (4.0-11.0)
[2017-03-31 06:39] LABS: ANION GAP 2 (6-14); BLOOD UREA NITROGEN 17 mg/dL (7-20); CALCIUM 9.2 mg/dL (8.5-10.1); CARBON DIOXIDE 41 mmol/L (21-32); CHLORIDE 99 mmol/L (98-107); GFR 67.8; GLUCOSE 117 mg/dL (70-99); POTASSIUM 4.7 mmol/L (3.5-5.1); SODIUM 142 mmol/L (136-145)
[2017-03-31 08:45] LABS: POC GLUCOSE 111 mg/dL (70-99)
[2017-03-31] MEDS: POTASSIUM CHLORIDE 10 MEQ TABLET.ER. PO ×2 (10:19→21:01)
[2017-03-31] MEDS: FERROUS SULFATE 325 MG TABLET. PO (10:19)
[2017-03-31] MEDS: ASPIRIN ENTERIC COATED 81 MG TABLET.DR. PO (10:20)
[2017-03-31] MEDS: METOPROLOL TART IMMED RELEASE 50 MG TABLET. PO ×2 (10:20→21:01)
[2017-03-31] MEDS: LOSARTAN POTASSIUM 50 MG TABLET. PO (10:20)
[2017-03-31] MEDS: FUROSEMIDE 80 MG TABLET. PO ×2 (10:20→15:57)
[2017-03-31] MEDS: CLOPIDOGREL BISULFATE 75 MG TABLET PO (10:20)
[2017-03-31] MEDS: FAMOTIDINE 20 MG TABLET. PO ×2 (10:21→21:01)
[2017-03-31] MEDS: INSULIN ASPART 300 UNITS/3 ML INSULN.PEN SQ ×3 (10:27→18:07)
[2017-03-31] MEDS: INSULIN DETEMIR 300 UNITS/3 ML INSULN.PEN. SQ ×2 (10:28→21:05)
[2017-03-31 11:55] LABS: POC GLUCOSE 145 mg/dL (70-99)
[2017-03-31] MEDS ORDERED: ONDANSETRON PF 4 MG/2 ML VIAL. IV (12:00)
[2017-03-31] MEDS ORDERED: ACETAMINOPHEN 500 MG TABLET PO (12:00)
[2017-03-31 17:48] LABS: POC GLUCOSE 126 mg/dL (70-99)
[2017-03-31] MEDS: ATORVASTATIN CALCIUM 20 MG TABLET PO (21:01)
[2017-04-01] MEDS: LABETALOL 20 MG/4 ML DISP.SYRIN. IVP (04:32)
[2017-04-01] MEDS: oxyCODONE/APAP 10/325 1 TAB TABLET PO ×2 (05:12→11:09)
[2017-04-01 06:09] LABS: ADD MAN DIFF? NO
[2017-04-01 06:17] LABS: BASO % 0 % (0-3); EOS # 0.1 x10^3/uL (0.0-0.7); EOS % 2 % (0-3); HEMATOCRIT 34.5 % (36.0-47.0); HEMOGLOBIN 10.7 g/dL (12.0-15.5); LYMPH # 1.7 x10^3/uL (1.0-4.8); LYMPH % 21 % (24-48); MEAN CORPUSCULAR HEMOGLOBIN 26 pg (25-35); MEAN CORPUSCULAR HGB CONC 31 g/dL (31-37); MEAN CORPUSCULAR VOLUME 85 fL (79-100); MONO # 0.5 x10^3/uL (0.0-1.1); MONO % 7 % (0-9); NEUT # 5.4 x10^3uL (1.8-7.7); NEUT % 70 % (31-73); PLATELET COUNT 299 x10^3/uL (140-400); RED BLOOD COUNT 4.06 x10^6/uL (3.50-5.40); RED CELL DISTRIBUTION WIDTH 16.3 % (11.5-14.5); WHITE BLOOD COUNT 7.7 x10^3/uL (4.0-11.0)
[2017-04-01 06:37] LABS: ANION GAP 3 (6-14); BLOOD UREA NITROGEN 13 mg/dL (7-20); CALCIUM 9.6 mg/dL (8.5-10.1); CARBON DIOXIDE 41 mmol/L (21-32); CHLORIDE 98 mmol/L (98-107); CREATININE 0.9 mg/dL (0.6-1.0); GFR 76.5; GLUCOSE 120 mg/dL (70-99); POTASSIUM 3.8 mmol/L (3.5-5.1); SODIUM 142 mmol/L (136-145)
[2017-04-01 08:09] LABS: POC GLUCOSE 111 mg/dL (70-99)
[2017-04-01] MEDS: POTASSIUM CHLORIDE 10 MEQ TABLET.ER. PO (08:25)
[2017-04-01] MEDS: FAMOTIDINE 20 MG TABLET. PO (08:25)
[2017-04-01] MEDS: FUROSEMIDE 80 MG TABLET. PO (08:25)
[2017-04-01] MEDS: CLOPIDOGREL BISULFATE 75 MG TABLET PO (08:25)
[2017-04-01] MEDS: FERROUS SULFATE 325 MG TABLET. PO (08:25)
[2017-04-01] MEDS: ASPIRIN ENTERIC COATED 81 MG TABLET.DR. PO (08:25)
[2017-04-01] MEDS: METOPROLOL TART IMMED RELEASE 50 MG TABLET. PO (08:26)
[2017-04-01] MEDS: LOSARTAN POTASSIUM 50 MG TABLET. PO (08:26)
[2017-04-01] MEDS: INSULIN ASPART 300 UNITS/3 ML INSULN.PEN SQ ×2 (08:31→12:34)
[2017-04-01] MEDS: INSULIN DETEMIR 300 UNITS/3 ML INSULN.PEN. SQ (09:32)
[2017-04-01 11:59] LABS: POC GLUCOSE 181 mg/dL (70-99)
[2017-04-01] MEDS ORDERED: FAMOTIDINE 20 MG TABLET. PO (21:00)
[2017-04-02 02:01] LABS: POC GLUCOSE 131 mg/dL (70-99)
== END 2017-04-01 15:20 | disposition home or self-care (01) | DRG 292 ==
LOC: ER 15:46 → 2 NORTH 19:25
DX: I11.0 Hypertensive heart disease with heart failure (principal); Z68.41 Body mass index [BMI] 40.0-44.9, adult; E11.40 Type 2 diabetes mellitus with diabetic neuropathy, unspecified; I27.21 Secondary pulmonary arterial hypertension; I25.10 Atherosclerotic heart disease of native coronary artery without angina pectoris; E66.9 Obesity, unspecified; Z96.659 Presence of unspecified artificial knee joint; G47.33 Obstructive sleep apnea (adult) (pediatric); Z82.49 Family history of ischemic heart disease and other diseases of the circulatory system; Z83.3 Family history of diabetes mellitus; Z95.5 Presence of coronary angioplasty implant and graft; Z91.19 Patient's noncompliance with other medical treatment and regimen; Z90.710 Acquired absence of both cervix and uterus; I25.2 Old myocardial infarction; Z90.49 Acquired absence of other specified parts of digestive tract; Z95.0 Presence of cardiac pacemaker; Z79.82 Long term (current) use of aspirin; Z79.4 Long term (current) use of insulin; Z95.1 Presence of aortocoronary bypass graft; I50.33 Acute on chronic diastolic (congestive) heart failure
CPT/HCPCS: 36415; 71045; 80048; 80053; 82962; 83880; 84484; 85025; 87804; 87804-59; 93005; 93306; 96374; 97116-GP; 97161-GP; 97165-GO; 99285; 99285-25; J1815; J2270; J3490

== ENCOUNTER 2017-04-12 16:04 | Emergency (ER) | payer OTHER ==
[2017-04-12 16:30] LABS: ADD MAN DIFF? NO
[2017-04-12 16:39] LABS: BASO % 0 % (0-3); EOS # 0.1 x10^3/uL (0.0-0.7); EOS % 1 % (0-3); HEMATOCRIT 39.2 % (36.0-47.0); HEMOGLOBIN 12.7 g/dL (12.0-15.5); LYMPH # 1.5 x10^3/uL (1.0-4.8); LYMPH % 15 % (24-48); MEAN CORPUSCULAR HEMOGLOBIN 27 pg (25-35); MEAN CORPUSCULAR HGB CONC 32 g/dL (31-37); MEAN CORPUSCULAR VOLUME 85 fL (79-100); MONO # 0.7 x10^3/uL (0.0-1.1); MONO % 7 % (0-9); NEUT # 7.6 x10^3uL (1.8-7.7); NEUT % 77 % (31-73); PLATELET COUNT 363 x10^3/uL (140-400); RED BLOOD COUNT 4.62 x10^6/uL (3.50-5.40); RED CELL DISTRIBUTION WIDTH 16.3 % (11.5-14.5); WHITE BLOOD COUNT 9.9 x10^3/uL (4.0-11.0)
[2017-04-12 16:44] LABS: ANION GAP 9 (6-14); BLOOD UREA NITROGEN 14 mg/dL (7-20); BUN/CREATININE RATIO 18 (6-20); CALCIUM 9.3 mg/dL (8.5-10.1); CARBON DIOXIDE 33 mmol/L (21-32); CHLORIDE 102 mmol/L (98-107); CREATININE 0.8 mg/dL (0.6-1.0); GFR 87.7; GLUCOSE 139 mg/dL (70-99); POTASSIUM 3.7 mmol/L (3.5-5.1); SODIUM 144 mmol/L (136-145)
[2017-04-12 16:50] LABS: ALBUMIN 3.4 g/dL (3.4-5.0); ALBUMIN/GLOBULIN RATIO 0.8 (1.0-1.7); ALK PHOS 98 U/L (46-116); ALT (SGPT) 19 U/L (14-59); AST (SGOT) 18 U/L (15-37); TOTAL BILIRUBIN 0.3 mg/dL (0.2-1.0); TOTAL PROTEIN 7.6 g/dL (6.4-8.2)
[2017-04-12 16:52] LABS: TROPONINI < 0.017 ng/mL (0.000-0.055)
[2017-04-12 16:58] LABS: CKMB MASS 0.9 ng/mL (0.0-3.6); CREATINE KINASE 56 U/L (26-192)
[2017-04-12 16:58] LABS: NT-PRO BNP 2214 pg/mL (0-124)
[2017-04-12] MEDS: LABETALOL 20 MG/4 ML DISP.SYRIN. IVP (17:00)
[2017-04-12] MEDS: oxyCODONE/APAP 10/325 1 TAB TABLET PO (17:00)
== END 2017-04-12 18:35 | disposition home or self-care (01) ==
LOC: ER 16:04
DX: R07.89 Other chest pain (principal); I27.20 Pulmonary hypertension, unspecified; I11.9 Hypertensive heart disease without heart failure; G89.29 Other chronic pain; E11.40 Type 2 diabetes mellitus with diabetic neuropathy, unspecified; I25.10 Atherosclerotic heart disease of native coronary artery without angina pectoris; Z95.1 Presence of aortocoronary bypass graft; Z95.0 Presence of cardiac pacemaker; Z90.710 Acquired absence of both cervix and uterus; Z90.49 Acquired absence of other specified parts of digestive tract
CPT/HCPCS: 36415; 80053; 82553; 83880; 84484; 85025; 93005; 96374; 99285-25; J3490

== ENCOUNTER 2017-05-15 17:12 | Inpatient (IN) | payer OTHER ==
[2017-05-15] MEDS: ASPIRIN CHEWABLE 81 MG TABLET. PO (17:45)
[2017-05-15 17:51] LABS: ADD MAN DIFF? NO
[2017-05-15 17:53] LABS: BASO # 0.1 x10^3/uL (0.0-0.2); BASO % 1 % (0-3); EOS # 0.1 x10^3/uL (0.0-0.7); EOS % 1 % (0-3); HEMATOCRIT 36.3 % (36.0-47.0); HEMOGLOBIN 11.7 g/dL (12.0-15.5); LYMPH # 1.4 x10^3/uL (1.0-4.8); LYMPH % 17 % (24-48); MEAN CORPUSCULAR HEMOGLOBIN 27 pg (25-35); MEAN CORPUSCULAR HGB CONC 32 g/dL (31-37); MEAN CORPUSCULAR VOLUME 84 fL (79-100); MONO # 0.6 x10^3/uL (0.0-1.1); MONO % 7 % (0-9); NEUT # 6.2 x10^3uL (1.8-7.7); NEUT % 75 % (31-73); PLATELET COUNT 331 x10^3/uL (140-400); RED BLOOD COUNT 4.31 x10^6/uL (3.50-5.40); RED CELL DISTRIBUTION WIDTH 16.2 % (11.5-14.5); WHITE BLOOD COUNT 8.3 x10^3/uL (4.0-11.0)
[2017-05-15 18:07] LABS: ANION GAP 6 (6-14); BLOOD UREA NITROGEN 16 mg/dL (7-20); BUN/CREATININE RATIO 20 (6-20); CALCIUM 9.5 mg/dL (8.5-10.1); CARBON DIOXIDE 32 mmol/L (21-32); CHLORIDE 101 mmol/L (98-107); CREATININE 0.8 mg/dL (0.6-1.0); GFR 87.7; GLUCOSE 189 mg/dL (70-99); POTASSIUM 4.9 mmol/L (3.5-5.1); SODIUM 139 mmol/L (136-145)
[2017-05-15] MEDS: NITROGLYCERIN SUBLINGUAL 0.4 MG BOTTLE OF 25. SL ×3 (18:12→19:17)
[2017-05-15 18:13] LABS: ALBUMIN 3.2 g/dL (3.4-5.0); ALBUMIN/GLOBULIN RATIO 0.7 (1.0-1.7); ALK PHOS 110 U/L (46-116); ALT (SGPT) 25 U/L (14-59); AST (SGOT) 23 U/L (15-37); TOTAL BILIRUBIN 0.3 mg/dL (0.2-1.0); TOTAL PROTEIN 7.7 g/dL (6.4-8.2)
[2017-05-15] MEDS: NITROGLYCERIN OINT 1 GM PACKET. TP (18:13)
[2017-05-15 18:17] LABS: TROPONINI < 0.017 ng/mL (0.000-0.055)
[2017-05-15] MEDS ORDERED: ONDANSETRON PF 4 MG/2 ML VIAL. IV (18:30)
[2017-05-15] MEDS ORDERED: ACETAMINOPHEN 500 MG TABLET PO (18:30)
[2017-05-15] MEDS ORDERED: LABETALOL 20 MG/4 ML DISP.SYRIN. IVP (18:30)
[2017-05-15] MEDS ORDERED: diphenhydrAMINE HCL 25 MG CAPSULE PO (18:30)
[2017-05-15] MEDS ORDERED: ONDANSETRON ODT 4 MG TAB.RAPDIS. PO (18:30)
[2017-05-15] MEDS: MORPHINE SULFATE 2 MG/ML DISP.SYRIN. IV (18:40)
[2017-05-15] MEDS: ONDANSETRON PF 4 MG/2 ML VIAL. IV (18:40)
[2017-05-15] MEDS ORDERED: DEXTROSE 50% 25 GM / 50ML DISP.SYRIN. IV (18:45)
[2017-05-15] MEDS ORDERED: NITROGLYCERIN SUBLINGUAL 0.4 MG BOTTLE OF 25. SL (18:45)
[2017-05-15] MEDS ORDERED: cloNIDine HCL 0.2 MG TABLET PO (18:45)
[2017-05-15 21:08] LABS: POC GLUCOSE 99 mg/dL (70-99)
[2017-05-15] MEDS: ATORVASTATIN CALCIUM 20 MG TABLET PO (22:26)
[2017-05-15] MEDS: FAMOTIDINE 20 MG TABLET. PO (22:26)
[2017-05-15] MEDS: oxyCODONE/APAP 10/325 1 TAB TABLET PO ×2 (22:26→22:27)
[2017-05-15] MEDS: POTASSIUM CHLORIDE 10 MEQ TABLET.ER. PO (22:28)
[2017-05-15] MEDS: METOPROLOL TART IMMED RELEASE 50 MG TABLET. PO (22:28)
[2017-05-15] MEDS: INSULIN DETEMIR 300 UNITS/3 ML INSULN.PEN. SQ (22:34)
[2017-05-16] MEDS: oxyCODONE/APAP 10/325 1 TAB TABLET PO ×3 (04:28→16:09)
[2017-05-16 07:53] LABS: POC GLUCOSE 132 mg/dL (70-99)
[2017-05-16] MEDS: INSULIN ASPART 300 UNITS/3 ML INSULN.PEN SQ ×4 (08:00→13:05)
[2017-05-16] MEDS: POTASSIUM CHLORIDE 10 MEQ TABLET.ER. PO (08:20)
[2017-05-16] MEDS: FERROUS SULFATE 325 MG TABLET. PO (08:20)
[2017-05-16] MEDS: VITAMIN B COMPLEX TABLET. PO (08:20)
[2017-05-16] MEDS: CLOPIDOGREL BISULFATE 75 MG TABLET PO (08:21)
[2017-05-16] MEDS: LOSARTAN POTASSIUM 50 MG TABLET. PO (08:21)
[2017-05-16] MEDS: FAMOTIDINE 20 MG TABLET. PO (08:21)
[2017-05-16] MEDS: ASPIRIN ENTERIC COATED 81 MG TABLET.DR. PO (08:21)
[2017-05-16] MEDS: FUROSEMIDE 80 MG TABLET. PO ×2 (08:21→16:09)
[2017-05-16 08:25] LABS: TROPONINI < 0.017 ng/mL (0.000-0.055)
[2017-05-16] MEDS: INSULIN DETEMIR 300 UNITS/3 ML INSULN.PEN. SQ (09:00)
[2017-05-16 11:03] LABS: POC GLUCOSE 113 mg/dL (70-99)
[2017-05-16] MEDS: METOPROLOL TART IMMED RELEASE 50 MG TABLET. PO (12:59)
[2017-05-16 14:46] LABS: TROPONINI < 0.017 ng/mL (0.000-0.055)
[2017-05-22] MEDS ORDERED: ERGOCALCIFEROL (VITAMIN D2) 50,000 UNIT CAPSULE. PO (09:00)
== END 2017-05-16 16:38 | disposition home or self-care (01) | DRG 392 ==
LOC: ER 17:12 → 2 NORTH 19:36
DX: K21.9 Gastro-esophageal reflux disease without esophagitis (principal); E11.21 Type 2 diabetes mellitus with diabetic nephropathy; I25.110 Atherosclerotic heart disease of native coronary artery with unstable angina pectoris; I11.0 Hypertensive heart disease with heart failure; I50.30 Unspecified diastolic (congestive) heart failure; E66.01 Morbid (severe) obesity due to excess calories; Z68.41 Body mass index [BMI] 40.0-44.9, adult; R07.89 Other chest pain; G47.33 Obstructive sleep apnea (adult) (pediatric); F32.9 Major depressive disorder, single episode, unspecified; Z96.659 Presence of unspecified artificial knee joint; I25.2 Old myocardial infarction; Z79.4 Long term (current) use of insulin; Z83.3 Family history of diabetes mellitus; Z90.710 Acquired absence of both cervix and uterus; Z95.0 Presence of cardiac pacemaker; Z95.1 Presence of aortocoronary bypass graft; Z90.49 Acquired absence of other specified parts of digestive tract; Z95.5 Presence of coronary angioplasty implant and graft
CPT/HCPCS: 36415; 71045; 80053; 82962; 84484; 85025; 93005; 96374; 96375; 99285; 99285-25; J1815; J2270; J2405

== ENCOUNTER 2017-07-06 13:26 | Inpatient (IN) | payer OTHER ==
[2017-07-06 14:07] LABS: ADD MAN DIFF? NO
[2017-07-06 14:10] LABS: BASO # 0.1 x10^3/uL (0.0-0.2); BASO % 1 % (0-3); EOS % 1 % (0-3); HEMATOCRIT 35.9 % (36.0-47.0); HEMOGLOBIN 11.7 g/dL (12.0-15.5); LYMPH % 11 % (24-48); MEAN CORPUSCULAR HEMOGLOBIN 28 pg (25-35); MEAN CORPUSCULAR HGB CONC 32 g/dL (31-37); MEAN CORPUSCULAR VOLUME 85 fL (79-100); MONO # 0.6 x10^3/uL (0.0-1.1); MONO % 6 % (0-9); NEUT # 7.5 x10^3uL (1.8-7.7); NEUT % 82 % (31-73); PLATELET COUNT 332 x10^3/uL (140-400); RED BLOOD COUNT 4.24 x10^6/uL (3.50-5.40); RED CELL DISTRIBUTION WIDTH 16.6 % (11.5-14.5); WHITE BLOOD COUNT 9.2 x10^3/uL (4.0-11.0)
[2017-07-06] MEDS: LABETALOL 20 MG/4 ML DISP.SYRIN. IVP (14:39)
[2017-07-06 14:57] LABS: ANION GAP 6 (6-14); BLOOD UREA NITROGEN 12 mg/dL (7-20); CARBON DIOXIDE 35 mmol/L (21-32); CHLORIDE 98 mmol/L (98-107); CREATININE 0.7 mg/dL (0.6-1.0); GFR 102.3; GLUCOSE 137 mg/dL (70-99); PARTIAL THROMBOPLASTIN TIME 25 SEC (24-38); POTASSIUM 4.1 mmol/L (3.5-5.1); SODIUM 139 mmol/L (136-145)
[2017-07-06] MEDS: IV NORMAL SALINE 500ML BAG 500 ML IV (15:00)
[2017-07-06 15:03] LABS: ALBUMIN 3.4 g/dL (3.4-5.0); ALK PHOS 102 U/L (46-116); ALT (SGPT) 19 U/L (14-59); AST (SGOT) 15 U/L (15-37); DIRECT BILIRUBIN 0.1 mg/dL (0.0-0.2); LIPASE 81 U/L (73-393); TOTAL BILIRUBIN 0.7 mg/dL (0.2-1.0); TOTAL PROTEIN 8.7 g/dL (6.4-8.2)
[2017-07-06 15:04] LABS: TROPONINI < 0.017 ng/mL (0.000-0.055)
[2017-07-06] MEDS: METOCLOPRAMIDE HCL 10 MG/2 ML VIAL. IV (15:07)
[2017-07-06] MEDS: diphenhydrAMINE 50 MG/ML VIAL IVP (15:07)
[2017-07-06 15:09] LABS: NT-PRO BNP 965 pg/mL (0-124)
[2017-07-06] MEDS: DEXAMETHASONE SOD PHOS 20 MG/5 ML VIAL. IV (15:51)
[2017-07-06] MEDS ORDERED: MORPHINE SULFATE 4 MG/ML DISP.SYRIN. IV (16:15)
[2017-07-06] MEDS ORDERED: ONDANSETRON PF 4 MG/2 ML VIAL. IV (16:15)
[2017-07-06 17:07] LABS: POC GLUCOSE 140 mg/dL (70-99)
[2017-07-06] MEDS ORDERED: NITROGLYCERIN SUBLINGUAL 0.4 MG BOTTLE OF 25. SL (17:30)
[2017-07-06] MEDS: oxyCODONE/APAP 10/325 1 TAB TABLET PO ×2 (17:55→23:23)
[2017-07-06] MEDS: POTASSIUM CHLORIDE 10 MEQ TABLET.ER. PO (17:57)
[2017-07-06] MEDS: IV NORMAL SALINE 1000ML BAG 1,000 ML IV (18:30)
[2017-07-06 19:23] LABS: TROPONINI < 0.017 ng/mL (0.000-0.055)
[2017-07-06 20:48] LABS: POC GLUCOSE 300 mg/dL (70-99)
[2017-07-06] MEDS ORDERED: DEXTROSE 50% 25 GM / 50ML DISP.SYRIN. IV (21:45)
[2017-07-06 22:23] LABS: TROPONINI < 0.017 ng/mL (0.000-0.055)
[2017-07-06] MEDS: FAMOTIDINE 20 MG TABLET. PO (22:37)
[2017-07-06] MEDS: ATORVASTATIN CALCIUM 20 MG TABLET PO (22:37)
[2017-07-06] MEDS: METOPROLOL TART IMMED RELEASE 25 MG TABLET. PO (22:38)
[2017-07-06] MEDS: INSULIN ASPART 300 UNITS/3 ML INSULN.PEN SQ (22:43)
[2017-07-06] MEDS: ZOLPIDEM 5 MG TABLET. PO (23:22)
[2017-07-07] MEDS: oxyCODONE/APAP 10/325 1 TAB TABLET PO ×3 (04:44→19:46)
[2017-07-07] MEDS: IV NORMAL SALINE 1000ML BAG 1,000 ML IV ×2 (04:48→14:37)
[2017-07-07 05:44] LABS: BASO % 0 % (0-3); EOS % 0 % (0-3); HEMATOCRIT 35.3 % (36.0-47.0); HEMOGLOBIN 11.3 g/dL (12.0-15.5); LYMPH # 0.7 x10^3/uL (1.0-4.8); LYMPH % 7 % (24-48); MEAN CORPUSCULAR HEMOGLOBIN 27 pg (25-35); MEAN CORPUSCULAR HGB CONC 32 g/dL (31-37); MEAN CORPUSCULAR VOLUME 84 fL (79-100); MONO # 0.5 x10^3/uL (0.0-1.1); MONO % 5 % (0-9); NEUT # 9.2 x10^3uL (1.8-7.7); NEUT % 88 % (31-73); PLATELET COUNT 321 x10^3/uL (140-400); RED CELL DISTRIBUTION WIDTH 16.7 % (11.5-14.5); WHITE BLOOD COUNT 10.4 x10^3/uL (4.0-11.0)
[2017-07-07 06:01] LABS: ANION GAP 7 (6-14); CALCIUM 9.5 mg/dL (8.5-10.1); CARBON DIOXIDE 31 mmol/L (21-32); CHLORIDE 99 mmol/L (98-107); CREATININE 0.7 mg/dL (0.6-1.0); GFR 102.3; GLUCOSE 158 mg/dL (70-99); POTASSIUM 4.8 mmol/L (3.5-5.1); SODIUM 137 mmol/L (136-145)
[2017-07-07 06:02] LABS: ADD MAN DIFF? YES
[2017-07-07 06:09] LABS: BLOOD UREA NITROGEN 18 mg/dL (7-20)
[2017-07-07] MEDS ORDERED: INSULIN ASPART 300 UNITS/3 ML INSULN.PEN SQ (07:30)
[2017-07-07 07:53] LABS: % BANDS 1 % (0-9); % BASOS 1 % (0-3); % LYMPHS 7 % (24-48); % MONOS 2 % (0-10); % SEGS 89 % (35-66)
[2017-07-07 07:54] LABS: ANISOCYTOSIS SLIGHT; OVALOCYTES OCC; PLT ESTIMATE ADEQUATE (ADEQUATE); POIKILOCYTOSIS SLIGHT
[2017-07-07 07:55] LABS: POC GLUCOSE 154 mg/dL (70-99)
[2017-07-07] MEDS: INSULIN GLARGINE 300 UNITS/3 ML INSULN.PEN. SQ ×2 (09:00→22:15)
[2017-07-07] MEDS: amLODIPine BESYLATE 5 MG TABLET PO (10:14)
[2017-07-07] MEDS: ASPIRIN ENTERIC COATED 81 MG TABLET.DR. PO (10:14)
[2017-07-07] MEDS: POTASSIUM CHLORIDE 10 MEQ TABLET.ER. PO ×2 (10:16→17:22)
[2017-07-07] MEDS: LOSARTAN POTASSIUM 50 MG TABLET. PO (10:16)
[2017-07-07] MEDS: GLIMEPIRIDE 2 MG TABLET. PO (10:17)
[2017-07-07] MEDS: METOPROLOL TART IMMED RELEASE 25 MG TABLET. PO ×2 (10:17→21:00)
[2017-07-07] MEDS: FERROUS SULFATE 325 MG TABLET. PO (10:17)
[2017-07-07] MEDS: ERGOCALCIFEROL (VITAMIN D2) 50,000 UNIT CAPSULE. PO (10:17)
[2017-07-07] MEDS: CLOPIDOGREL BISULFATE 75 MG TABLET PO (10:17)
[2017-07-07] MEDS: FAMOTIDINE 20 MG TABLET. PO ×2 (10:17→22:10)
[2017-07-07] MEDS: FUROSEMIDE 80 MG TABLET. PO ×2 (10:17→17:21)
[2017-07-07] MEDS: FLUoxetine HCL 20 MG CAPSULE PO (10:17)
[2017-07-07] MEDS: VITAMIN B COMPLEX TABLET. PO (10:17)
[2017-07-07] MEDS: KETOROLAC 30 MG/ML INJ. IV (10:18)
[2017-07-07] MEDS: diphenhydrAMINE 50 MG/ML VIAL IVP (10:18)
[2017-07-07] MEDS: PROCHLORPERAZINE 10 MG/2 ML VIAL. IV (10:18)
[2017-07-07] MEDS: INSULIN ASPART 300 UNITS/3 ML INSULN.PEN SQ ×6 (10:41→17:24)
[2017-07-07 11:47] LABS: POC GLUCOSE 175 mg/dL (70-99)
[2017-07-07 16:49] LABS: POC GLUCOSE 109 mg/dL (70-99)
[2017-07-07 21:32] LABS: POC GLUCOSE 168 mg/dL (70-99)
[2017-07-07] MEDS: ATORVASTATIN CALCIUM 20 MG TABLET PO (22:11)
[2017-07-07] MEDS: ZOLPIDEM 5 MG TABLET. PO (22:11)
[2017-07-08] MEDS: oxyCODONE/APAP 10/325 1 TAB TABLET PO ×4 (04:53→20:17)
[2017-07-08] MEDS: diphenhydrAMINE 50 MG/ML VIAL IVP (06:39)
[2017-07-08] MEDS: KETOROLAC 30 MG/ML INJ. IV (06:39)
[2017-07-08] MEDS: PROCHLORPERAZINE 10 MG/2 ML VIAL. IV (06:39)
[2017-07-08] MEDS: INSULIN ASPART 300 UNITS/3 ML INSULN.PEN SQ ×6 (07:30→17:00)
[2017-07-08 07:49] LABS: SEDIMENTATION RATE 29 (0-25)
[2017-07-08 08:06] LABS: POC GLUCOSE 116 mg/dL (70-99)
[2017-07-08] MEDS: FERROUS SULFATE 325 MG TABLET. PO (09:59)
[2017-07-08] MEDS: VITAMIN B COMPLEX TABLET. PO (09:59)
[2017-07-08] MEDS: CLOPIDOGREL BISULFATE 75 MG TABLET PO (09:59)
[2017-07-08] MEDS: FLUoxetine HCL 20 MG CAPSULE PO (09:59)
[2017-07-08] MEDS: ASPIRIN ENTERIC COATED 81 MG TABLET.DR. PO (10:00)
[2017-07-08] MEDS: GLIMEPIRIDE 2 MG TABLET. PO (10:00)
[2017-07-08] MEDS: amLODIPine BESYLATE 5 MG TABLET PO (10:00)
[2017-07-08] MEDS: METOPROLOL TART IMMED RELEASE 25 MG TABLET. PO ×2 (10:00→20:18)
[2017-07-08] MEDS: FAMOTIDINE 20 MG TABLET. PO ×2 (10:00→20:16)
[2017-07-08] MEDS: FUROSEMIDE 80 MG TABLET. PO ×2 (10:00→16:04)
[2017-07-08] MEDS: LOSARTAN POTASSIUM 50 MG TABLET. PO (10:01)
[2017-07-08] MEDS: POTASSIUM CHLORIDE 10 MEQ TABLET.ER. PO ×2 (10:01→18:00)
[2017-07-08] MEDS: INSULIN GLARGINE 300 UNITS/3 ML INSULN.PEN. SQ ×2 (10:09→21:23)
[2017-07-08 12:02] LABS: POC GLUCOSE 153 mg/dL (70-99)
[2017-07-08 17:21] LABS: POC GLUCOSE 54 mg/dL (70-99)
[2017-07-08 18:01] LABS: POC GLUCOSE 76 mg/dL (70-99)
[2017-07-08] MEDS: ATORVASTATIN CALCIUM 20 MG TABLET PO (20:16)
[2017-07-08 21:09] LABS: POC GLUCOSE 107 mg/dL (70-99)
[2017-07-08] MEDS: ZOLPIDEM 5 MG TABLET. PO (21:26)
[2017-07-09] MEDS: oxyCODONE/APAP 10/325 1 TAB TABLET PO ×5 (02:12→22:04)
[2017-07-09] MEDS: INSULIN ASPART 300 UNITS/3 ML INSULN.PEN SQ ×6 (07:30→17:00)
[2017-07-09] MEDS: VITAMIN B COMPLEX TABLET. PO (08:44)
[2017-07-09] MEDS: POTASSIUM CHLORIDE 10 MEQ TABLET.ER. PO ×2 (08:45→17:39)
[2017-07-09] MEDS: FAMOTIDINE 20 MG TABLET. PO ×2 (08:45→20:35)
[2017-07-09] MEDS: FLUoxetine HCL 20 MG CAPSULE PO (08:45)
[2017-07-09] MEDS: ASPIRIN ENTERIC COATED 81 MG TABLET.DR. PO (08:45)
[2017-07-09] MEDS: FERROUS SULFATE 325 MG TABLET. PO (08:45)
[2017-07-09] MEDS: FUROSEMIDE 80 MG TABLET. PO ×2 (08:46→13:13)
[2017-07-09] MEDS: GLIMEPIRIDE 2 MG TABLET. PO (08:46)
[2017-07-09] MEDS: amLODIPine BESYLATE 5 MG TABLET PO (08:48)
[2017-07-09] MEDS: LOSARTAN POTASSIUM 50 MG TABLET. PO (08:48)
[2017-07-09] MEDS: METOPROLOL TART IMMED RELEASE 25 MG TABLET. PO ×3 (08:48→20:36)
[2017-07-09] MEDS: CLOPIDOGREL BISULFATE 75 MG TABLET PO (08:51)
[2017-07-09] MEDS: INSULIN GLARGINE 300 UNITS/3 ML INSULN.PEN. SQ ×2 (09:00→20:37)
[2017-07-09 11:19] LABS: POC GLUCOSE 103 mg/dL (70-99)
[2017-07-09 17:32] LABS: POC GLUCOSE 58 mg/dL (70-99)
[2017-07-09 18:14] LABS: POC GLUCOSE 127 mg/dL (70-99)
[2017-07-09] MEDS: ZOLPIDEM 5 MG TABLET. PO (20:35)
[2017-07-09] MEDS: ATORVASTATIN CALCIUM 20 MG TABLET PO (20:35)
[2017-07-09 21:52] LABS: POC GLUCOSE 133 mg/dL (70-99)
[2017-07-10] MEDS: oxyCODONE/APAP 10/325 1 TAB TABLET PO ×4 (02:19→15:51)
[2017-07-10 06:31] LABS: POC GLUCOSE 70 mg/dL (70-99)
[2017-07-10] MEDS: INSULIN ASPART 300 UNITS/3 ML INSULN.PEN SQ ×4 (07:30→12:00)
[2017-07-10 08:05] LABS: POC GLUCOSE 111 mg/dL (70-99)
[2017-07-10] MEDS: POTASSIUM CHLORIDE 10 MEQ TABLET.ER. PO (08:37)
[2017-07-10] MEDS: amLODIPine BESYLATE 5 MG TABLET PO (09:00)
[2017-07-10] MEDS: VITAMIN B COMPLEX TABLET. PO (09:29)
[2017-07-10] MEDS: LOSARTAN POTASSIUM 50 MG TABLET. PO (09:29)
[2017-07-10] MEDS: FUROSEMIDE 80 MG TABLET. PO ×2 (09:30→13:47)
[2017-07-10] MEDS: FERROUS SULFATE 325 MG TABLET. PO (09:30)
[2017-07-10] MEDS: FAMOTIDINE 20 MG TABLET. PO (09:30)
[2017-07-10] MEDS: GLIMEPIRIDE 2 MG TABLET. PO (09:30)
[2017-07-10] MEDS: FLUoxetine HCL 20 MG CAPSULE PO (09:30)
[2017-07-10] MEDS: CLOPIDOGREL BISULFATE 75 MG TABLET PO (09:30)
[2017-07-10] MEDS: METOPROLOL TART IMMED RELEASE 25 MG TABLET. PO (09:31)
[2017-07-10] MEDS: ASPIRIN ENTERIC COATED 81 MG TABLET.DR. PO (09:31)
[2017-07-10] MEDS: INSULIN GLARGINE 300 UNITS/3 ML INSULN.PEN. SQ (09:36)
[2017-07-10 11:44] LABS: POC GLUCOSE 138 mg/dL (70-99)
== END 2017-07-10 17:00 | disposition home health service (06) | DRG 291 ==
LOC: ER 13:26 → 6 SOUTH 16:05
DX: I13.0 Hypertensive heart and chronic kidney disease with heart failure and stage 1 through stage 4 chronic kidney disease, or unspecified chronic kidney disease (principal); I50.43 Acute on chronic combined systolic (congestive) and diastolic (congestive) heart failure; E11.22 Type 2 diabetes mellitus with diabetic chronic kidney disease; E11.40 Type 2 diabetes mellitus with diabetic neuropathy, unspecified; E66.01 Morbid (severe) obesity due to excess calories; I27.29 Other secondary pulmonary hypertension; Z68.41 Body mass index [BMI] 40.0-44.9, adult; E11.65 Type 2 diabetes mellitus with hyperglycemia; E78.5 Hyperlipidemia, unspecified; F32.9 Major depressive disorder, single episode, unspecified; G43.909 Migraine, unspecified, not intractable, without status migrainosus; G47.33 Obstructive sleep apnea (adult) (pediatric); I25.10 Atherosclerotic heart disease of native coronary artery without angina pectoris; I44.7 Left bundle-branch block, unspecified; Z96.652 Presence of left artificial knee joint; J44.9 Chronic obstructive pulmonary disease, unspecified; K21.9 Gastro-esophageal reflux disease without esophagitis; M54.5 Low back pain; N18.9 Chronic kidney disease, unspecified; Z82.49 Family history of ischemic heart disease and other diseases of the circulatory system; Z83.3 Family history of diabetes mellitus; Z90.710 Acquired absence of both cervix and uterus; Z91.14 Patient's other noncompliance with medication regimen; Z91.19 Patient's noncompliance with other medical treatment and regimen; Z95.1 Presence of aortocoronary bypass graft; Z95.5 Presence of coronary angioplasty implant and graft; Z90.49 Acquired absence of other specified parts of digestive tract; I25.2 Old myocardial infarction
CPT/HCPCS: 36415; 70450; 70496; 71045; 80048; 80076; 82962; 83690; 83880; 84484; 85007; 85025; 85610; 85651; 85730; 93005; 93306; 96361; 96374; 96375; 97110-GP; 97162-GP; 97166-GO; 99285; 99285-25; J0780; J1100; J1200; J1815; J1885; J2765; J3490; J7030; J7040

== ENCOUNTER 2017-08-09 12:42 | Emergency (ER) | payer OTHER ==
[2017-08-09] MEDS: diphenhydrAMINE 50 MG/ML VIAL IVP ×2 (13:00→13:07)
[2017-08-09] MEDS: METOCLOPRAMIDE HCL 10 MG/2 ML VIAL. IV (13:07)
[2017-08-09] MEDS: KETOROLAC 30 MG/ML INJ. IV (13:07)
[2017-08-09 13:16] LABS: ADD MAN DIFF? NO
[2017-08-09 13:17] LABS: BASO # 0.1 x10^3/uL (0.0-0.2); BASO % 1 % (0-3); EOS % 1 % (0-3); HEMATOCRIT 35.8 % (36.0-47.0); HEMOGLOBIN 11.7 g/dL (12.0-15.5); LYMPH # 0.9 x10^3/uL (1.0-4.8); LYMPH % 13 % (24-48); MEAN CORPUSCULAR HEMOGLOBIN 28 pg (25-35); MEAN CORPUSCULAR HGB CONC 33 g/dL (31-37); MEAN CORPUSCULAR VOLUME 85 fL (79-100); MONO # 0.5 x10^3/uL (0.0-1.1); MONO % 7 % (0-9); NEUT # 5.7 x10^3uL (1.8-7.7); NEUT % 78 % (31-73); PLATELET COUNT 314 x10^3/uL (140-400); RED CELL DISTRIBUTION WIDTH 16.2 % (11.5-14.5); WHITE BLOOD COUNT 7.2 x10^3/uL (4.0-11.0)
[2017-08-09 13:27] LABS: ANION GAP 3 (6-14); BLOOD UREA NITROGEN 9 mg/dL (7-20); BUN/CREATININE RATIO 13 (6-20); CALCIUM 9.9 mg/dL (8.5-10.1); CARBON DIOXIDE 40 mmol/L (21-32); CHLORIDE 99 mmol/L (98-107); CREATININE 0.7 mg/dL (0.6-1.0); GFR 102.3; GLUCOSE 144 mg/dL (70-99); POTASSIUM 4.5 mmol/L (3.5-5.1); SODIUM 142 mmol/L (136-145)
[2017-08-09 13:34] LABS: ALBUMIN 3.4 g/dL (3.4-5.0); ALBUMIN/GLOBULIN RATIO 0.8 (1.0-1.7); ALK PHOS 106 U/L (46-116); ALT (SGPT) 23 U/L (14-59); AST (SGOT) 20 U/L (15-37); TOTAL BILIRUBIN 0.5 mg/dL (0.2-1.0); TOTAL PROTEIN 7.8 g/dL (6.4-8.2)
[2017-08-09 13:35] LABS: TROPONINI < 0.017 ng/mL (0.000-0.055)
[2017-08-09 13:39] LABS: NT-PRO BNP 1725 pg/mL (0-124)
[2017-08-09] MEDS: ASPIRIN CHEWABLE 81 MG TABLET. PO (13:45)
[2017-08-09] MEDS: amLODIPine BESYLATE 5 MG TABLET PO (14:35)
[2017-08-09] MEDS: ACETAMINOPHEN 500 MG TABLET PO (14:35)
[2017-08-09] MEDS: HYDROcodone/APAP 5/325MG 1 TAB TABLET PO (15:53)
== END 2017-08-09 16:10 | disposition home or self-care (01) ==
LOC: ER 12:42
DX: R07.89 Other chest pain (principal); R51 Headache; I25.10 Atherosclerotic heart disease of native coronary artery without angina pectoris; E11.9 Type 2 diabetes mellitus without complications; I10 Essential (primary) hypertension; Z90.49 Acquired absence of other specified parts of digestive tract; Z95.1 Presence of aortocoronary bypass graft; Z90.710 Acquired absence of both cervix and uterus; Z79.82 Long term (current) use of aspirin; Z96.659 Presence of unspecified artificial knee joint
CPT/HCPCS: 36415; 71045; 80053; 83880; 84484; 85025; 93005; 96374; 96375; 99285-25; J1200; J1885; J2765

== ENCOUNTER 2017-10-24 15:17 | Inpatient (IN) | payer OTHER ==
[2017-10-24 16:23] LABS: ADD MAN DIFF? NO
[2017-10-24 16:28] LABS: BASO % 1 % (0-3); EOS # 0.1 x10^3/uL (0.0-0.7); EOS % 1 % (0-3); HEMOGLOBIN 11.9 g/dL (12.0-15.5); LYMPH # 1.2 x10^3/uL (1.0-4.8); LYMPH % 16 % (24-48); MEAN CORPUSCULAR HEMOGLOBIN 27 pg (25-35); MEAN CORPUSCULAR HGB CONC 32 g/dL (31-37); MEAN CORPUSCULAR VOLUME 84 fL (79-100); MONO # 0.6 x10^3/uL (0.0-1.1); MONO % 8 % (0-9); NEUT # 5.6 x10^3uL (1.8-7.7); NEUT % 75 % (31-73); PLATELET COUNT 292 x10^3/uL (140-400); RED CELL DISTRIBUTION WIDTH 16.2 % (11.5-14.5); WHITE BLOOD COUNT 7.4 x10^3/uL (4.0-11.0)
[2017-10-24 16:29] LABS: BILIRUBIN,URINE NEGATIVE (NEG); CLARITY,URINE CLEAR; COLOR,URINE YELLOW; GLUCOSE,URINE NEGATIVE (NEG); NITRITE,URINE NEGATIVE (NEG); PROTEIN,URINE NEGATIVE (NEG-TRACE)
[2017-10-24] MEDS: ONDANSETRON PF 4 MG/2 ML VIAL. IV (16:30)
[2017-10-24] MEDS: ASPIRIN 325 MG TABLET PO (16:30)
[2017-10-24] MEDS: MORPHINE SULFATE 10 MG/ML VIAL. IV (16:32)
[2017-10-24 16:35] LABS: BARBITURATES NEG (NEG); BENZODIAZEPINES NEG (NEG); CANNABINOIDS NEG (NEG); COCAINE NEG (NEG); METHADONE NEG (NEG); OPIATES POS (NEG); PHENCYCLIDINE NEG (NEG)
[2017-10-24] MEDS: LABETALOL 20 MG/4 ML DISP.SYRIN. IVP (16:35)
[2017-10-24] MEDS: IPRATRPIUM/ALBUTEROL 0.5/2.5MG 3 ML NEBU. NEB (16:36)
[2017-10-24 16:37] LABS: BACTERIA,URINE MODERATE /HPF (0-FEW); RBC,URINE 0 /HPF (0-2); SQUAMOUS EPITHELIAL CELL,UR MOD /LPF; WBC,URINE OCC /HPF (0-4)
[2017-10-24 16:41] LABS: AMPHETAMINE/METHAMPHETAMINE NEG (NEG); ETHANOL, URINE NEG (NEG)
[2017-10-24 17:04] LABS: ANION GAP 18 (6-14); BLOOD UREA NITROGEN 10 mg/dL (7-20); CALCIUM 9.1 mg/dL (8.5-10.1); CARBON DIOXIDE 18 mmol/L (21-32); CHLORIDE 103 mmol/L (98-107); CREATININE 0.6 mg/dL (0.6-1.0); GFR 122.2; GLUCOSE 81 mg/dL (70-99); MAGNESIUM 1.9 mg/dL (1.8-2.4); POTASSIUM 3.9 mmol/L (3.5-5.1); SODIUM 139 mmol/L (136-145)
[2017-10-24 17:15] LABS: TROPONINI < 0.017 ng/mL (0.000-0.055)
[2017-10-24 17:17] LABS: NT-PRO BNP 1176 pg/mL (0-124)
[2017-10-24 17:17] LABS: CKMB MASS 0.8 ng/mL (0.0-3.6); CREATINE KINASE 45 U/L (26-192)
[2017-10-24] MEDS ORDERED: MAGNESIUM HYDROXIDE 2,400 MG/30 ML ORAL.SUSP. PO (18:00)
[2017-10-24] MEDS ORDERED: CALCIUM CARBONATE 500 MG TAB.CHEW PO (18:00)
[2017-10-24] MEDS ORDERED: PROCHLORPERAZINE 10 MG/2 ML VIAL. IV (18:00)
[2017-10-24] MEDS ORDERED: MAG HYDROX/ALUMINUM HYD/SIMETH 30 ML ORAL.SUSP PO (18:00)
[2017-10-24] MEDS ORDERED: ONDANSETRON PF 4 MG/2 ML VIAL. IV ×2 (18:00)
[2017-10-24] MEDS ORDERED: DEXTROSE 50% 25 GM / 50ML DISP.SYRIN. IV (18:00)
[2017-10-24] MEDS ORDERED: PROCHLORPERAZINE 25 MG SUPP.RECT. PR (18:00)
[2017-10-24] MEDS ORDERED: IBUPROFEN 400 MG TABLET. PO (18:00)
[2017-10-24] MEDS ORDERED: ACETAMINOPHEN 325 MG TABLET. PO ×2 (18:00)
[2017-10-24] MEDS ORDERED: NITROGLYCERIN SUBLINGUAL 0.4 MG BOTTLE OF 25. SL ×2 (18:00)
[2017-10-24] MEDS ORDERED: MORPHINE SULFATE 4 MG/ML DISP.SYRIN. IV (18:00)
[2017-10-24] MEDS ORDERED: MORPHINE SULFATE 2 MG/ML DISP.SYRIN. IV (18:00)
[2017-10-24] MEDS ORDERED: oxyCODONE IR 5 MG TABLET PO (18:00)
[2017-10-24] MEDS ORDERED: ALBUTEROL SULFATE 2.5 MG/3 ML NEBU. NEB (18:15)
[2017-10-24] MEDS: oxyCODONE/APAP 10/325 1 TAB TABLET PO (19:53)
[2017-10-24 20:02] LABS: POC GLUCOSE 80 mg/dL (70-99)
[2017-10-24] MEDS: DOCUSATE SODIUM 100 MG CAPSULE. PO (21:00)
[2017-10-24] MEDS: METOPROLOL TART IMMED RELEASE 25 MG TABLET. PO (21:22)
[2017-10-24] MEDS: ATORVASTATIN CALCIUM 20 MG TABLET PO (21:22)
[2017-10-24] MEDS: POTASSIUM CHLORIDE 10 MEQ TABLET.ER. PO (21:22)
[2017-10-24] MEDS: FAMOTIDINE 20 MG TABLET. PO (21:22)
[2017-10-24] MEDS: INSULIN GLARGINE 300 UNITS/3 ML INSULN.PEN. SQ (21:27)
[2017-10-24 22:07] LABS: TROPONINI < 0.017 ng/mL (0.000-0.055)
[2017-10-24] MEDS: ZOLPIDEM 5 MG TABLET. PO (22:27)
[2017-10-25] MEDS: oxyCODONE/APAP 10/325 1 TAB TABLET PO ×6 (00:16→21:36)
[2017-10-25 01:08] LABS: TROPONINI < 0.017 ng/mL (0.000-0.055)
[2017-10-25 05:34] LABS: ANION GAP 9 (6-14); BLOOD UREA NITROGEN 10 mg/dL (7-20); CALCIUM 8.9 mg/dL (8.5-10.1); CARBON DIOXIDE 28 mmol/L (21-32); CHLORIDE 102 mmol/L (98-107); CREATININE 0.8 mg/dL (0.6-1.0); GFR 87.7; GLUCOSE 142 mg/dL (70-99); POTASSIUM 3.5 mmol/L (3.5-5.1); SODIUM 139 mmol/L (136-145)
[2017-10-25 06:42] LABS: ADD MAN DIFF? NO
[2017-10-25 06:44] LABS: BASO % 0 % (0-3); EOS # 0.1 x10^3/uL (0.0-0.7); EOS % 1 % (0-3); HEMATOCRIT 33.2 % (36.0-47.0); HEMOGLOBIN 10.6 g/dL (12.0-15.5); LYMPH # 2.1 x10^3/uL (1.0-4.8); LYMPH % 32 % (24-48); MEAN CORPUSCULAR HEMOGLOBIN 27 pg (25-35); MEAN CORPUSCULAR HGB CONC 32 g/dL (31-37); MEAN CORPUSCULAR VOLUME 85 fL (79-100); MONO # 0.5 x10^3/uL (0.0-1.1); MONO % 7 % (0-9); NEUT # 3.9 x10^3uL (1.8-7.7); NEUT % 59 % (31-73); PLATELET COUNT 288 x10^3/uL (140-400); RED BLOOD COUNT 3.91 x10^6/uL (3.50-5.40); RED CELL DISTRIBUTION WIDTH 16.4 % (11.5-14.5); WHITE BLOOD COUNT 6.6 x10^3/uL (4.0-11.0)
[2017-10-25 07:54] LABS: POC GLUCOSE 153 mg/dL (70-99)
[2017-10-25] MEDS: ASPIRIN ENTERIC COATED 81 MG TABLET.DR. PO (08:53)
[2017-10-25] MEDS: FAMOTIDINE 20 MG TABLET. PO ×2 (08:53→21:37)
[2017-10-25] MEDS: LOSARTAN POTASSIUM 50 MG TABLET. PO (08:53)
[2017-10-25] MEDS: METOPROLOL TART IMMED RELEASE 25 MG TABLET. PO ×2 (08:53→21:37)
[2017-10-25] MEDS: GLIMEPIRIDE 2 MG TABLET. PO (08:53)
[2017-10-25] MEDS: FERROUS SULFATE 325 MG TABLET. PO (08:53)
[2017-10-25] MEDS: FUROSEMIDE 40 MG TABLET. PO (08:54)
[2017-10-25] MEDS: CLOPIDOGREL BISULFATE 75 MG TABLET PO (08:55)
[2017-10-25] MEDS: POTASSIUM CHLORIDE 10 MEQ TABLET.ER. PO ×2 (08:55→21:38)
[2017-10-25] MEDS: DOCUSATE SODIUM 100 MG CAPSULE. PO ×2 (08:55→21:40)
[2017-10-25] MEDS: INSULIN LISPRO 300 UNITS/3 ML INSULN.PEN. SQ ×6 (09:01→17:17)
[2017-10-25] MEDS: INSULIN GLARGINE 300 UNITS/3 ML INSULN.PEN. SQ ×2 (09:01→21:41)
[2017-10-25 11:51] LABS: POC GLUCOSE 100 mg/dL (70-99)
[2017-10-25 17:15] LABS: POC GLUCOSE 92 mg/dL (70-99)
[2017-10-25 20:46] LABS: POC GLUCOSE 71 mg/dL (70-99)
[2017-10-25] MEDS: ATORVASTATIN CALCIUM 20 MG TABLET PO (21:36)
[2017-10-25] MEDS: ZOLPIDEM 5 MG TABLET. PO (23:00)
[2017-10-26] MEDS: oxyCODONE/APAP 10/325 1 TAB TABLET PO ×5 (03:48→21:19)
[2017-10-26 07:27] LABS: POC GLUCOSE 102 mg/dL (70-99)
[2017-10-26] MEDS: INSULIN LISPRO 300 UNITS/3 ML INSULN.PEN. SQ ×6 (07:46→17:00)
[2017-10-26] MEDS: CLOPIDOGREL BISULFATE 75 MG TABLET PO (07:58)
[2017-10-26] MEDS: FERROUS SULFATE 325 MG TABLET. PO (07:58)
[2017-10-26] MEDS: DOCUSATE SODIUM 100 MG CAPSULE. PO ×2 (07:58→21:16)
[2017-10-26] MEDS: FAMOTIDINE 20 MG TABLET. PO ×2 (07:58→21:17)
[2017-10-26] MEDS: METOPROLOL TART IMMED RELEASE 25 MG TABLET. PO ×2 (07:59→21:17)
[2017-10-26] MEDS: LOSARTAN POTASSIUM 50 MG TABLET. PO (07:59)
[2017-10-26] MEDS: POTASSIUM CHLORIDE 10 MEQ TABLET.ER. PO ×2 (07:59→21:16)
[2017-10-26] MEDS: GLIMEPIRIDE 2 MG TABLET. PO (08:00)
[2017-10-26] MEDS: FUROSEMIDE 40 MG TABLET. PO (08:00)
[2017-10-26] MEDS: ASPIRIN ENTERIC COATED 81 MG TABLET.DR. PO (08:01)
[2017-10-26] MEDS: INSULIN GLARGINE 300 UNITS/3 ML INSULN.PEN. SQ ×2 (08:07→21:22)
[2017-10-26 11:30] LABS: POC GLUCOSE 133 mg/dL (70-99)
[2017-10-26 17:22] LABS: POC GLUCOSE 53 mg/dL (70-99)
[2017-10-26 17:57] LABS: POC GLUCOSE 113 mg/dL (70-99)
[2017-10-26 20:34] LABS: POC GLUCOSE 121 mg/dL (70-99)
[2017-10-26] MEDS: ATORVASTATIN CALCIUM 20 MG TABLET PO (21:16)
[2017-10-26] MEDS: ZOLPIDEM 5 MG TABLET. PO (23:22)
[2017-10-27] MEDS: oxyCODONE/APAP 10/325 1 TAB TABLET PO ×5 (02:40→20:31)
[2017-10-27] MEDS: INSULIN LISPRO 300 UNITS/3 ML INSULN.PEN. SQ ×6 (08:00→17:18)
[2017-10-27 08:04] LABS: POC GLUCOSE 115 mg/dL (70-99)
[2017-10-27] MEDS: DOCUSATE SODIUM 100 MG CAPSULE. PO ×2 (08:09→20:25)
[2017-10-27] MEDS: FAMOTIDINE 20 MG TABLET. PO ×2 (08:09→20:24)
[2017-10-27] MEDS: ASPIRIN ENTERIC COATED 81 MG TABLET.DR. PO (08:09)
[2017-10-27] MEDS: CLOPIDOGREL BISULFATE 75 MG TABLET PO (08:09)
[2017-10-27] MEDS: POTASSIUM CHLORIDE 10 MEQ TABLET.ER. PO ×2 (08:10→20:25)
[2017-10-27] MEDS: FERROUS SULFATE 325 MG TABLET. PO (08:10)
[2017-10-27] MEDS: METOPROLOL TART IMMED RELEASE 25 MG TABLET. PO ×2 (08:11→20:26)
[2017-10-27] MEDS: GLIMEPIRIDE 2 MG TABLET. PO (08:11)
[2017-10-27] MEDS: FUROSEMIDE 40 MG TABLET. PO (08:11)
[2017-10-27] MEDS: LOSARTAN POTASSIUM 50 MG TABLET. PO (08:12)
[2017-10-27] MEDS: INSULIN GLARGINE 300 UNITS/3 ML INSULN.PEN. SQ ×2 (08:14→20:31)
[2017-10-27 11:51] LABS: POC GLUCOSE 108 mg/dL (70-99)
[2017-10-27 17:02] LABS: POC GLUCOSE 81 mg/dL (70-99)
[2017-10-27] MEDS: ATORVASTATIN CALCIUM 20 MG TABLET PO (20:25)
[2017-10-27 20:28] LABS: POC GLUCOSE 94 mg/dL (70-99)
[2017-10-27] MEDS: ZOLPIDEM 5 MG TABLET. PO (23:24)
[2017-10-28] MEDS: oxyCODONE/APAP 10/325 1 TAB TABLET PO ×6 (02:58→21:47)
[2017-10-28] MEDS: LABETALOL 20 MG/4 ML DISP.SYRIN. IVP (04:00)
[2017-10-28 07:24] LABS: POC GLUCOSE 71 mg/dL (70-99)
[2017-10-28] MEDS: INSULIN LISPRO 300 UNITS/3 ML INSULN.PEN. SQ ×6 (08:00→17:54)
[2017-10-28] MEDS: POTASSIUM CHLORIDE 10 MEQ TABLET.ER. PO ×2 (08:49→20:02)
[2017-10-28] MEDS: FERROUS SULFATE 325 MG TABLET. PO (08:49)
[2017-10-28] MEDS: FAMOTIDINE 20 MG TABLET. PO ×2 (08:49→20:02)
[2017-10-28] MEDS: CLOPIDOGREL BISULFATE 75 MG TABLET PO (08:50)
[2017-10-28] MEDS: DOCUSATE SODIUM 100 MG CAPSULE. PO ×2 (08:50→20:01)
[2017-10-28] MEDS: METOPROLOL TART IMMED RELEASE 25 MG TABLET. PO ×2 (08:50→20:03)
[2017-10-28] MEDS: GLIMEPIRIDE 2 MG TABLET. PO (08:53)
[2017-10-28] MEDS: ASPIRIN ENTERIC COATED 81 MG TABLET.DR. PO (08:54)
[2017-10-28] MEDS: LOSARTAN POTASSIUM 50 MG TABLET. PO (08:54)
[2017-10-28] MEDS: FUROSEMIDE 40 MG TABLET. PO (08:55)
[2017-10-28 09:01] LABS: ADD MAN DIFF? NO
[2017-10-28 09:10] LABS: BASO % 1 % (0-3); EOS # 0.1 x10^3/uL (0.0-0.7); EOS % 2 % (0-3); HEMATOCRIT 32.8 % (36.0-47.0); HEMOGLOBIN 10.4 g/dL (12.0-15.5); LYMPH # 1.2 x10^3/uL (1.0-4.8); LYMPH % 17 % (24-48); MEAN CORPUSCULAR HEMOGLOBIN 27 pg (25-35); MEAN CORPUSCULAR HGB CONC 32 g/dL (31-37); MEAN CORPUSCULAR VOLUME 86 fL (79-100); MONO # 0.5 x10^3/uL (0.0-1.1); MONO % 8 % (0-9); NEUT # 5.1 x10^3uL (1.8-7.7); NEUT % 73 % (31-73); PLATELET COUNT 232 x10^3/uL (140-400); RED BLOOD COUNT 3.81 x10^6/uL (3.50-5.40); RED CELL DISTRIBUTION WIDTH 16.1 % (11.5-14.5); WHITE BLOOD COUNT 6.9 x10^3/uL (4.0-11.0)
[2017-10-28] MEDS: INSULIN GLARGINE 300 UNITS/3 ML INSULN.PEN. SQ ×2 (09:10→20:03)
[2017-10-28 09:34] LABS: ANION GAP 0 (6-14); BLOOD UREA NITROGEN 14 mg/dL (7-20); CALCIUM 9.4 mg/dL (8.5-10.1); CARBON DIOXIDE 37 mmol/L (21-32); CHLORIDE 101 mmol/L (98-107); CREATININE 0.8 mg/dL (0.6-1.0); GFR 87.7; GLUCOSE 111 mg/dL (70-99); POTASSIUM 4.4 mmol/L (3.5-5.1); SODIUM 138 mmol/L (136-145)
[2017-10-28 11:30] LABS: POC GLUCOSE 115 mg/dL (70-99)
[2017-10-28 16:57] LABS: POC GLUCOSE 127 mg/dL (70-99)
[2017-10-28] MEDS: ATORVASTATIN CALCIUM 20 MG TABLET PO (20:02)
[2017-10-28] MEDS: ZOLPIDEM 5 MG TABLET. PO (20:02)
[2017-10-28 20:04] LABS: POC GLUCOSE 84 mg/dL (70-99)
[2017-10-29] MEDS: oxyCODONE/APAP 10/325 1 TAB TABLET PO ×3 (02:06→10:45)
[2017-10-29 07:45] LABS: POC GLUCOSE 122 mg/dL (70-99)
[2017-10-29] MEDS: INSULIN LISPRO 300 UNITS/3 ML INSULN.PEN. SQ ×2 (08:00→08:50)
[2017-10-29] MEDS: DOCUSATE SODIUM 100 MG CAPSULE. PO (08:42)
[2017-10-29] MEDS: ASPIRIN ENTERIC COATED 81 MG TABLET.DR. PO (08:42)
[2017-10-29] MEDS: POTASSIUM CHLORIDE 10 MEQ TABLET.ER. PO (08:42)
[2017-10-29] MEDS: FUROSEMIDE 40 MG TABLET. PO (08:42)
[2017-10-29] MEDS: FAMOTIDINE 20 MG TABLET. PO (08:42)
[2017-10-29] MEDS: METOPROLOL TART IMMED RELEASE 25 MG TABLET. PO (08:43)
[2017-10-29] MEDS: GLIMEPIRIDE 2 MG TABLET. PO (08:43)
[2017-10-29] MEDS: CLOPIDOGREL BISULFATE 75 MG TABLET PO (08:43)
[2017-10-29] MEDS: LOSARTAN POTASSIUM 50 MG TABLET. PO (08:43)
[2017-10-29] MEDS: FERROUS SULFATE 325 MG TABLET. PO (08:43)
[2017-10-29] MEDS: INSULIN GLARGINE 300 UNITS/3 ML INSULN.PEN. SQ (08:51)
[2017-10-29] MEDS ORDERED: LIDO:MAALOX 1:1 20 ML SINGLE DOSE. PO (09:30)
[2017-10-29] MEDS ORDERED: BISACODYL 5 MG TABLET.DR. PO (09:30)
[2017-10-29] MEDS: POLYETHYLENE GLYCOL 3350 17 GM PACKET. PO (09:30)
[2017-10-30] MEDS ORDERED: PANTOPRAZOLE 40 MG TABLET.DR. PO (07:30)
== END 2017-10-29 11:08 | DRG 392 ==
LOC: ER 15:17 → 2 NORTH 17:48
DX: K21.9 Gastro-esophageal reflux disease without esophagitis (principal); I13.0 Hypertensive heart and chronic kidney disease with heart failure and stage 1 through stage 4 chronic kidney disease, or unspecified chronic kidney disease; Z68.41 Body mass index [BMI] 40.0-44.9, adult; R07.89 Other chest pain; E11.22 Type 2 diabetes mellitus with diabetic chronic kidney disease; E11.42 Type 2 diabetes mellitus with diabetic polyneuropathy; I50.9 Heart failure, unspecified; E66.9 Obesity, unspecified; E78.5 Hyperlipidemia, unspecified; G47.30 Sleep apnea, unspecified; G89.29 Other chronic pain; I25.10 Atherosclerotic heart disease of native coronary artery without angina pectoris; J44.9 Chronic obstructive pulmonary disease, unspecified; N18.9 Chronic kidney disease, unspecified; F32.9 Major depressive disorder, single episode, unspecified; M54.5 Low back pain; M19.90 Unspecified osteoarthritis, unspecified site; D50.9 Iron deficiency anemia, unspecified; E78.00 Pure hypercholesterolemia, unspecified; Z96.652 Presence of left artificial knee joint; Z79.82 Long term (current) use of aspirin; Z79.4 Long term (current) use of insulin; Z90.710 Acquired absence of both cervix and uterus; Z95.1 Presence of aortocoronary bypass graft; I25.2 Old myocardial infarction; Z90.49 Acquired absence of other specified parts of digestive tract; Z79.899 Other long term (current) drug therapy; Z95.5 Presence of coronary angioplasty implant and graft; Z95.0 Presence of cardiac pacemaker; Z81.8 Family history of other mental and behavioral disorders; Z82.0 Family history of epilepsy and other diseases of the nervous system; Z82.49 Family history of ischemic heart disease and other diseases of the circulatory system; Z82.5 Family history of asthma and other chronic lower respiratory diseases; Z83.2 Family history of diseases of the blood and blood-forming organs and certain disorders involving the immune mechanism; Z83.3 Family history of diabetes mellitus
CPT/HCPCS: 36415; 71045; 80048; 80307; 81001; 82553; 82962; 83735; 83880; 84443; 84484; 85025; 87086; 93005; 94640; 96374; 96375; 97116-GP; 97162-GP; 97166-GO; 97168-GO; 99285; 99285-25; J1815; J2270; J2405; J3490; J7620

== ENCOUNTER 2017-11-10 13:47 | Inpatient (IN) | payer OTHER ==
[~2017-11-10] VITALS: Ht 157.5 cm; Wt 105.8 kg
[~2017-11-10 13:47] MED LIST changes: +ALBU2.5V14 NEB; +AMLO5TAB2 PO; +FAMO-63 PO; -FERR-26 PO; +FERR325T14 PO; +FLUO20CA8 PO; +FURO80TA3 PO; +GLIM2TAB PO; +INSU100V13 SQ; +LOSA50TA6 PO; +POTA10TA12 PO; -POTASSIUM CHLO10 MEQ PO; +Pantoprazole PO
[2017-11-10] MEDS ORDERED: ONDANSETRON PF 4 MG/2 ML VIAL. IV ONE (14:00)
[2017-11-10] MEDS ORDERED: fentaNYL PF VIAL 100 MCG/2 ML VIAL IV ONE (14:00)
--- NOTE | 2017-11-10 14:47 | RAD ---
EXAM: CHEST PA LATERAL DATE: 11/10/2017 2:08 PM INDICATION: Shortness of air COMPARISON: No Prior FINDINGS: Cardiac generator pack obscures a portion left chest with leads in stable position. Cardiomegaly. Bilateral perihilar predominant airspace opacities with prominence of the central pulmonary vasculature. Small left pleural effusion. No pneumothorax. IMPRESSION: Cardiomegaly with bilateral perihilar parenchymal airspace opacities and small left pleural effusion likely pulmonary edema. Electronically signed by: Ej Nevarez MD (11/10/2017 2:43 PM) [id number]
--- NOTE | 2017-11-10 14:59 | EKG ---
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
[2017-11-10 15:48] LABS: BASO % 1 % (0-3); EOS # 0.1 x10^3/uL (0.0-0.7); EOS % 1 % (0-3); HEMATOCRIT 30.8 % (36.0-47.0); HEMOGLOBIN 9.6 g/dL (12.0-15.5); LYMPH # 0.8 x10^3/uL (1.0-4.8); LYMPH % 11 % (24-48); MEAN CORPUSCULAR HEMOGLOBIN 27 pg (25-35); MEAN CORPUSCULAR HGB CONC 31 g/dL (31-37); MEAN CORPUSCULAR VOLUME 87 fL (79-100); MONO # 0.5 x10^3/uL (0.0-1.1); MONO % 7 % (0-9); NEUT # 6.5 x10^3uL (1.8-7.7); NEUT % 81 % (31-73); PLATELET COUNT 286 x10^3/uL (140-400); RED BLOOD COUNT 3.57 x10^6/uL (3.50-5.40); RED CELL DISTRIBUTION WIDTH 16.6 % (11.5-14.5)
[2017-11-10 16:00] LABS: CALCIUM 9.8 mg/dL (8.5-10.1); CREATININE 0.7 mg/dL (0.6-1.0); GFR 102.3; POTASSIUM 4.3 mmol/L (3.5-5.1)
[2017-11-10] MEDS ORDERED: MORPHINE SULFATE 10 MG/ML VIAL. IM ONE (16:00)
[2017-11-10 16:04] LABS: ALBUMIN 3.3 g/dL (3.4-5.0); ALBUMIN/GLOBULIN RATIO 0.8 (1.0-1.7); TOTAL BILIRUBIN 0.5 mg/dL (0.2-1.0); TOTAL PROTEIN 7.5 g/dL (6.4-8.2)
[2017-11-10] MEDS ORDERED: NITROGLYCERIN SUBLINGUAL 0.4 MG BOTTLE OF 25. SL PRN (17:15)
[2017-11-10] MEDS ORDERED: ONDANSETRON PF 4 MG/2 ML VIAL. IV PRN (17:15)
[2017-11-10] MEDS ORDERED: ALBUTEROL SULFATE 5 MG NEB PRN (17:15)
[2017-11-10] MEDS ORDERED: ALBUTEROL SULFATE 2.5 MG/3 ML NEBU. NEB PRN (17:30)
--- NOTE | 2017-11-10 18:12 | PHYS DOC ---
Past Medical History Past Medical History: CAD, Diabetes-Type II, High Cholesterol, Heart Disease, Hypertension, [place], Other Additional Past Medical Histor: neuropathy, SLEEP APNEA, CHRONIC BACK PAIN Past Surgical History: Angioplasty, Cholecystectomy, Coronary Bypass Surgery, Hysterectomy, Knee Replacement, Pacemaker, Other Additional Past Surgical Histo: HERNIA, breast reduction, L KNEE Alcohol Use: None Drug Use: None Adult General Chief Complaint Chief Complaint: SHORTNESS OF BREATH HPI HPI Patient is a 62 year old F who presents with increased sob at rest and on exertion for the last 2-3 days. Patient reports she was d/c home from [facility] last week. Since then, she has been increasingly sob. She has O2 to use as needed at home. She has been using her O2 continuously at 3L without relief. Review of Systems Review of Systems Constitutional: Denies fever or chills [] Respiratory: Reports shortness of breath [] Cardiovascular: No chest pain or palpitations GI: Denies abdominal pain, nausea, vomiting, bloody stools or diarrhea [] Integument: Denies rash or skin lesions [] Neurologic: Denies headache, focal weakness or sensory changes [] All other systems were reviewed and found to be within normal limits, except as documented in this note. Current Medications Current Medications Current Medications Medications (Trade) Dose Ordered Sig/Susan Start Time Stop Time Status Last Admin Dose Admin Fentanyl Citrate (Fentanyl 2ml Vial) 50 mcg 1X ONCE 11/10/17 14:00 11/10/17 14:02 DC Morphine Sulfate (Morphine Sulfate) 8 mg 1X ONCE 11/10/17 16:00 11/10/17 16:01 DC 11/10/17 15:42 8 MG Ondansetron HCl (Zofran) 4 mg 1X ONCE 11/10/17 14:00 11/10/17 14:02 DC Allergies Allergies Allergies Coded Allergies Type Severity Reaction Last Updated Verified No Known Drug Allergies 08/01/13 No Physical Exam Physical Exam Constitutional: Well developed, well nourished, no acute distress, non-toxic appearance. [] HENT: Normocephalic, atraumatic Eyes: PERRLA, EOMI, conjunctiva normal, no discharge. [] Neck: Normal range of motion, no tenderness, supple, no stridor. [] Cardiovascular:Heart rate regular rhythm, no murmur [] Lungs & Thorax: Bilateral breath sounds clear to auscultation [] Skin: Warm, dry, no erythema, no rash. [] Extremities: No tenderness, ROM intact, reports increased edema. [] Neurologic: Alert and oriented X 3, normal motor function, normal sensory function, no focal deficits noted. [] Psychologic: Affect normal, judgement normal, mood normal. [] Current Patient Data Vital Signs Vital Signs Date Time Temp Pulse Resp B/P (MAP) Pulse Ox O2 Delivery O2 Flow Rate FiO2 11/10/17 16:20 60 24 179/62 (101) 97 Nasal Cannula 3.0 11/10/17 13:54 99.3 99.3 Lab Values Laboratory Tests Test 11/10/17 15:40 White Blood Count 8.0 x10^3/uL (4.0-11.0) Red Blood Count 3.57 x10^6/uL (3.50-5.40) Hemoglobin 9.6 g/dL (12.0-15.5) L Hematocrit 30.8 % (36.0-47.0) L Mean Corpuscular Volume 87 fL (79-100) Mean Corpuscular Hemoglobin 27 pg (25-35) Mean Corpuscular Hemoglobin Concent 31 g/dL (31-37) Red Cell Distribution Width 16.6 % (11.5-14.5) H Platelet Count 286 x10^3/uL (140-400) Neutrophils (%) (Auto) 81 % (31-73) H Lymphocytes (%) (Auto) 11 % (24-48) L Monocytes (%) (Auto) 7 % (0-9) Eosinophils (%) (Auto) 1 % (0-3) Basophils (%) (Auto) 1 % (0-3) Neutrophils # (Auto) 6.5 x10^3uL (1.8-7.7) Lymphocytes # (Auto) 0.8 x10^3/uL (1.0-4.8) L Monocytes # (Auto) 0.5 x10^3/uL (0.0-1.1) Eosinophils # (Auto) 0.1 x10^3/uL (0.0-0.7) Basophils # (Auto) 0.0 x10^3/uL (0.0-0.2) Sodium Level 142 mmol/L (136-145) Potassium Level 4.3 mmol/L (3.5-5.1) Chloride Level 99 mmol/L (98-107) Carbon Dioxide Level 40 mmol/L (21-32) H Anion Gap 3 (6-14) L Blood Urea Nitrogen 12 mg/dL (7-20) Creatinine 0.7 mg/dL (0.6-1.0) Estimated GFR (Cockcroft-Gault) 102.3 BUN/Creatinine Ratio 17 (6-20) Glucose Level 71 mg/dL (70-99) Calcium Level 9.8 mg/dL (8.5-10.1) Total Bilirubin 0.5 mg/dL (0.2-1.0) Aspartate Amino Transferase (AST) 19 U/L (15-37) Alanine Aminotransferase (ALT) 27 U/L (14-59) Alkaline Phosphatase 112 U/L (46-116) Troponin I Quantitative < 0.017 ng/mL (0.000-0.055) SY-Kys-D-Type Natriuretic Peptide 2970 pg/mL (0-124) H Total Protein 7.5 g/dL (6.4-8.2) Albumin 3.3 g/dL (3.4-5.0) L Albumin/Globulin Ratio 0.8 (1.0-1.7) L Laboratory Tests 11/10/17 15:40 Laboratory Tests 11/10/17 15:40 EKG EKG [] Radiology/Procedures Radiology/Procedures PATIENT: GRETCHEN BONILLA EACCOUNT: [id number]#: [id number] : 1955 LOCATION: ER AGE: 62 SEX: F EXAM STATUS: PRE ER ORD. PHYSICIAN: SAMIR MAN APRN REASON: dyspnea PROCEDURE: CHEST PA & LATERAL EXAM: CHEST PA LATERAL DATE: 11/10/2017 2:08 PM INDICATION: Shortness of air COMPARISON: No Prior FINDINGS: Cardiac generator pack obscures a portion left chest with leads in stable position. Cardiomegaly. Bilateral perihilar predominant airspace opacities with prominence of the central pulmonary vasculature. Small left pleural effusion. No pneumothorax. IMPRESSION: Cardiomegaly with bilateral perihilar parenchymal airspace opacities and small left pleural effusion likely pulmonary edema. Electronically signed by: Ej Kohli MD (11/10/2017 2:43 PM) [id number] DICTATED and SIGNED BY: EJ KOHLI MD DATE: 11/10/17 1441 [] Course & Med Decision Making Course & Med Decision Making Pertinent Labs and Imaging studies reviewed. (See chart for details) d/w Dr. Arias, lasix 60mg IV bid. Admit to hospitalist Plan: admit to Dr. Gilberto Palacio Disclaimer Dragon Disclaimer This electronic medical record was generated, in whole or in part, using a voice recognition dictation system. Departure Departure Impression: Primary Impression: CHF exacerbation Disposition: ADMITTED INPATIENT Admitting Physician: Kelsie Macias Condition: STABLE Referrals: NO PCP (PCP) Problem Qualifiers Primary Impression: CHF exacerbation Heart failure type: unspecified Qualified Codes: I50.9 - Heart failure, unspecified SAMIR MAN [employer] Nov 10, 2017 18:12
[2017-11-10] MEDS: FUROSEMIDE 40 MG/4 ML VIAL. IVP SCH (18:55)
--- NOTE | 2017-11-10 19:20 | PDOC2 ---
CONSULT Date of Consult Date of Consult DATE: 11/10/17 TIME: 19:14 Reason for Consult Reason for Consult: Dyspnea and swelling Identification/Chief Complaint Chief Complaint Dyspnea and swelling History of Present Illness Reason for Visit: This patient is a 62-year-old lady that is frequently at this institution. She has a known history of chronic CHF and the last time that she was here it was about 2 weeks ago. The patient returns with dyspnea and complaints of leg edema. At the time that I saw her she denies having any chest pains. Past Medical History Cardiovascular: CAD, CHF, HTN, MS, Hyperlipidemia Pulmonary: COPD, Other CENTRAL NERVOUS SYSTEM: Periperal neuropathy GI: GERD Heme/Onc: No pertinent hx Hepatobiliary: No pertinent hx Psych: No pertinent hx Musculoskeletal: low back pain, Osteoarthritis Rheumatologic: No pertinent hx Renal/: Chronic renal insuff Endocrine: Diabetes Past Surgical History Past Surgical History: Pacemaker, Appendectomy, Cholecystectomy, CABG, Hernia Repair, Total knee replacement, Hysterectomy, Other Family History Family History: Diabetes Social History ALCOHOL: none Drugs: None Current Medications Current Medications Current Medications Fentanyl Citrate (Fentanyl 2ml Vial) 50 mcg 1X ONCE IV ; Start 11/10/17 at 14: 00; Stop 11/10/17 at 14:02; Status DC Ondansetron HCl (Zofran) 4 mg 1X ONCE IV ; Start 11/10/17 at 14:00; Stop at 14:02; Status DC Morphine Sulfate (Morphine Sulfate) 8 mg 1X ONCE IM Last administered on at 15:42; Start 11/10/17 at 16:00; Stop 11/10/17 at 16:01; Status DC Furosemide (Lasix) 60 mg [id number] IVP Last administered on 11/10/17at 18:55; Start 11/10/17 at 17:00 Aspirin (Ecotrin) 81 mg DAILY PO ; Start 11/11/17 at 09:00 Atorvastatin Calcium (Lipitor) 20 mg HS PO ; Start 11/10/17 at 21:00 Clopidogrel Bisulfate (Plavix) 75 mg DAILY PO ; Start 11/11/17 at 09:00 Ferrous Sulfate (Feosol) 325 mg DAILY PO ; Start 11/11/17 at 09:00 Glimepiride (Amaryl) 2 mg DAILY PO ; Start 11/11/17 at 09:00 Insulin Human Lispro (HumaLOG) 20 units TIDWMEALS SQ ; Start 11/10/17 at 18:00; Status UNV Losartan Potassium (Cozaar) 50 mg DAILY PO ; Start 11/11/17 at 09:00 Metoprolol Tartrate (Lopressor) 25 mg BID PO ; Start 11/10/17 at 21:00 Nitroglycerin (Nitrostat) 0.4 mg PRN Q5MIN PRN SL CHEST PAIN; Start 11/10/17 at 17:15 Oxycodone/ Acetaminophen (Percocet 10/325) 1 tab PRN Q4HRS PRN PO PAIN; Start 11/10/17 at 17:15 Potassium Chloride (Klor-Con) 10 meq BID PO ; Start 11/10/17 at 21:00 Non-Formulary Medication (Albuterol Sulfate (Albuterol Sulfate Conc Neb Soln)) 5 mg PRN PRN NEB WHEEZING; Start 11/10/17 at 17:15; Stop 11/10/17 at 17:27; Status DC Insulin Glargine (Lantus) 32 units BID SQ ; Start 11/10/17 at 21:00; Status UNV Pantoprazole Sodium (Protonix) 40 mg DAILYAC PO ; Start 11/11/17 at 07:30 Zolpidem Tartrate (Ambien) 5 mg PRN QHS PRN PO INSOMNIA; Start 11/10/17 at 17: 15 Ondansetron HCl (Zofran) 4 mg PRN Q8HRS PRN IV NAUSEA/VOMITING; Start 11/10/17 at 17:15; Stop 11/11/17 at 17:14 Morphine Sulfate (Morphine Sulfate) 2 mg PRN Q2HR PRN IV PAIN; Start 11/10/17 at 17:15; Stop 11/11/17 at 17:14 Albuterol Sulfate (Ventolin Neb Soln) 2.5 mg PRN Q6HRS PRN NEB SHORTNESS OF BREATH; Start 11/10/17 at 17:30 Active Scripts Active [Pantoprazole] 40 MG Tablet.dr 40 Mg PO DAILYAC 30 Days Amaryl (Glimepiride) 2 Mg Tablet 2 Mg PO DAILY 30 Days Reported Furosemide 80 Mg Tablet 60 Mg PO DAILY Levemir Flextouch (Insulin Detemir) 100 Unit/1 Ml Insuln.pen 32 Unit SQ BID Novolog (Insulin Aspart) 100 Unit/1 Ml Vial 20 Unit SQ TIDAC Albuterol Sulfate Conc Neb Soln (Albuterol Sulfate) 2.5 Mg/0.5 Ml Vial.neb 5 Mg NEB PRN PRN Percocet 10-325 Mg Tablet (Oxycodone/Acetaminophen) 1 Each Tablet 2 Tab PO PRN Q4HRS PRN Percocet 10-325 Mg Tablet (Oxycodone/Acetaminophen) 1 Each Tablet 1 Tab PO PRN Q4HRS PRN Losartan Potassium 50 Mg Tablet 50 Mg PO DAILY Metoprolol Tartrate 25 Mg Tablet 1 Tab PO BID Ferrous Sulfate 325 Mg Tablet 1 Tab PO DAILY NITROGLYCERIN SubLingual (Nitroglycerin) 0.4 Mg Tab.subl 0.4 Mg SL PRN Q5MIN PRN Atorvastatin Calcium 20 Mg Tablet 20 Mg PO HS Potassium Chloride 10 Meq Capsule.er 10 Meq PO BID Aspir 81 (Aspirin) 81 Mg Tablet.dr 1 Tab PO DAILY Clopidogrel (Clopidogrel Bisulfate) 75 Mg Tablet 1 Tab PO DAILY Allergies Allergies: Coded Allergies: No Known Drug Allergies (Unverified , 08/01/13) Physical Exam General: Alert, Oriented X3, Cooperative HEENT: PERRLA Lungs: Other Heart: Regular rate, Normal S1, Normal S2, Other (no changes in murmur) Abdomen: Normal bowel sounds, Soft Extremities: Other (2+ pitting edema) Vitals VITALS Vital Signs Date Time Temp Pulse Resp B/P (MAP) Pulse Ox O2 Delivery O2 Flow Rate FiO2 11/10/17 17:55 60 26 168/98 (121) 99 Nasal Cannula 3.0 11/10/17 13:54 99.3 99.3 Labs Labs Laboratory Tests Test 11/10/17 15:40 White Blood Count 8.0 x10^3/uL (4.0-11.0) Red Blood Count 3.57 x10^6/uL (3.50-5.40) Hemoglobin 9.6 g/dL (12.0-15.5) Hematocrit 30.8 % (36.0-47.0) Mean Corpuscular Volume 87 fL (79-100) Mean Corpuscular Hemoglobin 27 pg (25-35) Mean Corpuscular Hemoglobin Concent 31 g/dL (31-37) Red Cell Distribution Width 16.6 % (11.5-14.5) Platelet Count 286 x10^3/uL (140-400) Neutrophils (%) (Auto) 81 % (31-73) Lymphocytes (%) (Auto) 11 % (24-48) Monocytes (%) (Auto) 7 % (0-9) Eosinophils (%) (Auto) 1 % (0-3) Basophils (%) (Auto) 1 % (0-3) Neutrophils # (Auto) 6.5 x10^3uL (1.8-7.7) Lymphocytes # (Auto) 0.8 x10^3/uL (1.0-4.8) Monocytes # (Auto) 0.5 x10^3/uL (0.0-1.1) Eosinophils # (Auto) 0.1 x10^3/uL (0.0-0.7) Basophils # (Auto) 0.0 x10^3/uL (0.0-0.2) Sodium Level 142 mmol/L (136-145) Potassium Level 4.3 mmol/L (3.5-5.1) Chloride Level 99 mmol/L (98-107) Carbon Dioxide Level 40 mmol/L (21-32) Anion Gap 3 (6-14) Blood Urea Nitrogen 12 mg/dL (7-20) Creatinine 0.7 mg/dL (0.6-1.0) Estimated GFR (Cockcroft-Gault) 102.3 BUN/Creatinine Ratio 17 (6-20) Glucose Level 71 mg/dL (70-99) Calcium Level 9.8 mg/dL (8.5-10.1) Total Bilirubin 0.5 mg/dL (0.2-1.0) Aspartate Amino Transf (AST/SGOT) 19 U/L (15-37) Alanine Aminotransferase (ALT/SGPT) 27 U/L (14-59) Alkaline Phosphatase 112 U/L (46-116) Troponin I Quantitative < 0.017 ng/mL (0.000-0.055) HG-Ybf-K-Type Natriuretic Peptide 2970 pg/mL (0-124) Total Protein 7.5 g/dL (6.4-8.2) Albumin 3.3 g/dL (3.4-5.0) Albumin/Globulin Ratio 0.8 (1.0-1.7) Laboratory Tests Test 8/20/18 15:40 White Blood Count 8.0 x10^3/uL (4.0-11.0) Red Blood Count 3.57 x10^6/uL (3.50-5.40) Hemoglobin 9.6 g/dL (12.0-15.5) Hematocrit 30.8 % (36.0-47.0) Mean Corpuscular Volume 87 fL (79-100) Mean Corpuscular Hemoglobin 27 pg (25-35) Mean Corpuscular Hemoglobin Concent 31 g/dL (31-37) Red Cell Distribution Width 16.6 % (11.5-14.5) Platelet Count 286 x10^3/uL (140-400) Neutrophils (%) (Auto) 81 % (31-73) Lymphocytes (%) (Auto) 11 % (24-48) Monocytes (%) (Auto) 7 % (0-9) Eosinophils (%) (Auto) 1 % (0-3) Basophils (%) (Auto) 1 % (0-3) Neutrophils # (Auto) 6.5 x10^3uL (1.8-7.7) Lymphocytes # (Auto) 0.8 x10^3/uL (1.0-4.8) Monocytes # (Auto) 0.5 x10^3/uL (0.0-1.1) Eosinophils # (Auto) 0.1 x10^3/uL (0.0-0.7) Basophils # (Auto) 0.0 x10^3/uL (0.0-0.2) Sodium Level 142 mmol/L (136-145) Potassium Level 4.3 mmol/L (3.5-5.1) Chloride Level 99 mmol/L (98-107) Carbon Dioxide Level 40 mmol/L (21-32) Anion Gap 3 (6-14) Blood Urea Nitrogen 12 mg/dL (7-20) Creatinine 0.7 mg/dL (0.6-1.0) Estimated GFR (Cockcroft-Gault) 102.3 BUN/Creatinine Ratio 17 (6-20) Glucose Level 71 mg/dL (70-99) Calcium Level 9.8 mg/dL (8.5-10.1) Total Bilirubin 0.5 mg/dL (0.2-1.0) Aspartate Amino Transf (AST/SGOT) 19 U/L (15-37) Alanine Aminotransferase (ALT/SGPT) 27 U/L (14-59) Alkaline Phosphatase 112 U/L (46-116) Troponin I Quantitative < 0.017 ng/mL (0.000-0.055) IP-Msq-D-Type Natriuretic Peptide 2970 pg/mL (0-124) Total Protein 7.5 g/dL (6.4-8.2) Albumin 3.3 g/dL (3.4-5.0) Albumin/Globulin Ratio 0.8 (1.0-1.7) Assessment/Plan Assessment/Plan This patient comes in with dyspnea and appears to be in acute on chronic CHF secondary to systolic and diastolic dysfunction. She has a known history of coronary artery disease, previous bypass surgery and is status post pacemaker. We will diurese her and see how she does. Thank you very much for asking me to participate in the care of this patient. LIZBET LINDSAY MD Nov 10, 2017 19:20
--- NOTE | 2017-11-10 20:01 | PDOC1 ---
History and Physical Date of Admission Date of Admission DATE: 11/10/17 TIME: 19:57 History of Present Illness History of Present Illness Nupur is a 62 year old F seen in ER, asked to be admitted for increased sob at rest and on exertion for the last 3 days. She was DC from [facility] 4 days ago, then dyspnea, anxiety, insmonia and weakness, She says she cannot walk to the bathroom without marked dyspnea. . She has O2 to use as needed at home. She has been using her O2 continuously at 3L without relief. Past Medical History Cardiovascular: CAD, CHF, HTN, [place], Hyperlipidemia Pulmonary: COPD, Other CENTRAL NERVOUS SYSTEM: Periperal neuropathy GI: GERD Heme/Onc: No pertinent hx Hepatobiliary: No pertinent hx Psych: No pertinent hx Musculoskeletal: low back pain, Osteoarthritis Rheumatologic: No pertinent hx Renal/: Chronic renal insuff Endocrine: Diabetes Past Surgical History Past Surgical History: Pacemaker, Appendectomy, Cholecystectomy, CABG, Hernia Repair, Total knee replacement, Hysterectomy, Other Family History Family History: Diabetes Social History Smoke: No ALCOHOL: none Drugs: None Current Medications Current Medications Current Medications Fentanyl Citrate (Fentanyl 2ml Vial) 50 mcg 1X ONCE IV ; Start 11/10/17 at 14: 00; Stop 11/10/17 at 14:02; Status DC Ondansetron HCl (Zofran) 4 mg 1X ONCE IV ; Start 11/10/17 at 14:00; Stop at 14:02; Status DC Morphine Sulfate (Morphine Sulfate) 8 mg 1X ONCE IM Last administered on at 15:42; Start 11/10/17 at 16:00; Stop 11/10/17 at 16:01; Status DC Furosemide (Lasix) 60 mg BID92 IVP Last administered on 11/10/17at 18:55; Start 11/10/17 at 17:00 Aspirin (Ecotrin) 81 mg DAILY PO ; Start 11/11/17 at 09:00 Atorvastatin Calcium (Lipitor) 20 mg HS PO ; Start 11/10/17 at 21:00 Clopidogrel Bisulfate (Plavix) 75 mg DAILY PO ; Start 11/11/17 at 09:00 Ferrous Sulfate (Feosol) 325 mg DAILY PO ; Start 11/11/17 at 09:00 Glimepiride (Amaryl) 2 mg DAILY PO ; Start 11/11/17 at 09:00 Insulin Human Lispro (HumaLOG) 20 units TIDWMEALS SQ ; Start 11/10/17 at 18:00; Status UNV Losartan Potassium (Cozaar) 50 mg DAILY PO ; Start 11/11/17 at 09:00 Metoprolol Tartrate (Lopressor) 25 mg BID PO ; Start 11/10/17 at 21:00 Nitroglycerin (Nitrostat) 0.4 mg PRN Q5MIN PRN SL CHEST PAIN; Start 11/10/17 at 17:15 Oxycodone/ Acetaminophen (Percocet 10/325) 1 tab PRN Q4HRS PRN PO PAIN; Start 11/10/17 at 17:15 Potassium Chloride (Klor-Con) 10 meq BID PO ; Start 11/10/17 at 21:00 Non-Formulary Medication (Albuterol Sulfate (Albuterol Sulfate Conc Neb Soln)) 5 mg PRN PRN NEB WHEEZING; Start 11/10/17 at 17:15; Stop 11/10/17 at 17:27; Status DC Insulin Glargine (Lantus) 32 units BID SQ ; Start 11/10/17 at 21:00; Status UNV Pantoprazole Sodium (Protonix) 40 mg DAILYAC PO ; Start 11/11/17 at 07:30 Zolpidem Tartrate (Ambien) 5 mg PRN QHS PRN PO INSOMNIA; Start 11/10/17 at 17: 15 Ondansetron HCl (Zofran) 4 mg PRN Q8HRS PRN IV NAUSEA/VOMITING; Start 11/10/17 at 17:15; Stop 11/11/17 at 17:14 Morphine Sulfate (Morphine Sulfate) 2 mg PRN Q2HR PRN IV PAIN; Start 11/10/17 at 17:15; Stop 11/11/17 at 17:14 Albuterol Sulfate (Ventolin Neb Soln) 2.5 mg PRN Q6HRS PRN NEB SHORTNESS OF BREATH; Start 11/10/17 at 17:30 Active Scripts Active [Pantoprazole] 40 MG Tablet.dr 40 Mg PO DAILYAC 30 Days Amaryl (Glimepiride) 2 Mg Tablet 2 Mg PO DAILY 30 Days Reported Furosemide 80 Mg Tablet 60 Mg PO DAILY Levemir Flextouch (Insulin Detemir) 100 Unit/1 Ml Insuln.pen 32 Unit SQ BID Novolog (Insulin Aspart) 100 Unit/1 Ml Vial 20 Unit SQ TIDAC Albuterol Sulfate Conc Neb Soln (Albuterol Sulfate) 2.5 Mg/0.5 Ml Vial.neb 5 Mg NEB PRN PRN Percocet 10-325 Mg Tablet (Oxycodone/Acetaminophen) 1 Each Tablet 2 Tab PO PRN Q4HRS PRN Percocet 10-325 Mg Tablet (Oxycodone/Acetaminophen) 1 Each Tablet 1 Tab PO PRN Q4HRS PRN Losartan Potassium 50 Mg Tablet 50 Mg PO DAILY Metoprolol Tartrate 25 Mg Tablet 1 Tab PO BID Ferrous Sulfate 325 Mg Tablet 1 Tab PO DAILY NITROGLYCERIN SubLingual (Nitroglycerin) 0.4 Mg Tab.subl 0.4 Mg SL PRN Q5MIN PRN Atorvastatin Calcium 20 Mg Tablet 20 Mg PO HS Potassium Chloride 10 Meq Capsule.er 10 Meq PO BID Aspir 81 (Aspirin) 81 Mg Tablet.dr 1 Tab PO DAILY Clopidogrel (Clopidogrel Bisulfate) 75 Mg Tablet 1 Tab PO DAILY Allergies Allergies: Coded Allergies: No Known Drug Allergies (Unverified , 08/01/13) ROS General: YES: Fatigue, Malaise; No: Chills, Night Sweats, Appetite, Other PSYCHOLOGICAL ROS: YES: Anxiety, Sleep disturbances; No: Behavioral Disorder, Concentration difficultie, Decreased libido, Depression, Disorientation, Hallucinations, Hostility, Irritablity, Memory difficulties, Mood Swings, Obsessive thoughts, Suicidal ideation, Other Eyes: No Blurry vision, No Decreased vision, No Double vision, No Dry eyes, No Excessive tearing, No Eye Pain, No Itchy Eyes, No Loss of vision, No Photophobia , No Scotomata, No Uses contacts, No Uses glasses, No Other Respiratory: YES: Orthopnea, SOB with excertion; No: Cough, Hemoptysis, Pleuritic Pain, Shortness of breath, Sputum Changes, Stridor, Tachypnea, Wheezing, Other Cardiovascular: yes Edema; No Chest Pain, No Palpitations, No Orthopnea, No Paroxysmal Noc. Dyspnea, No Lt Headedness, No Other Gastrointestinal: Yes Nausea; No Vomiting, No Abdominal Pain, No Diarrhea, No Constipation, No Melena, No Hematochezia, No Other Genitourinary: No Dysuria, No Frequency, No Incontinence, No Hematuria, No Retention, No Discharge, No Urgency, No Pain, No Flank Pain, No Other, No , No , No , No , No , No , No Musculoskeletal: No Gait Disturbance, No Joint Pain, No Joint Stiffness, No Joint Swelling, No Muscle Pain, No Muscular Weakness, No Pain In:, No Swelling In:, No Other Neurological: No Behavorial Changes, No Bowel/Bladder ControlChng, No Confusion , No Dizziness, No Gait Disturbance, No Headaches, No Impaired Coord/balance, No Memory Loss, No Numbness/Tingling, No Seizures, No Speech Problems, No Tremors, No Visual Changes, No Weakness, No Other Skin: Yes Dry Skin; No Eczema, No Hair Changes, No Lumps, No Mole Changes, No Mottling, No Nail Changes, No Pruritus, No Rash, No Skin Lesion Changes, No Other, No Acne Physical Exam General: Alert, Cooperative, mild distress, moderate distress HEENT: Atraumatic, PERRLA Lungs: Clear to auscultation Heart: S1S2, RRR Abdomen: Normal bowel sounds, Soft Rectal Exam: not examined Extremities: No cyanosis, Other (+ edema) Skin: No rashes Neuro: Normal speech, Sensation intact Psych/Mental Status: Mood NL Vitals Vitals Vital Signs Date Time Temp Pulse Resp B/P (MAP) Pulse Ox O2 Delivery O2 Flow Rate FiO2 11/10/17 17:55 60 26 168/98 (121) 99 Nasal Cannula 3.0 11/10/17 13:54 99.3 99.3 Labs Labs Laboratory Tests Test 11/10/17 15:40 White Blood Count 8.0 x10^3/uL (4.0-11.0) Red Blood Count 3.57 x10^6/uL (3.50-5.40) Hemoglobin 9.6 g/dL (12.0-15.5) Hematocrit 30.8 % (36.0-47.0) Mean Corpuscular Volume 87 fL (79-100) Mean Corpuscular Hemoglobin 27 pg (25-35) Mean Corpuscular Hemoglobin Concent 31 g/dL (31-37) Red Cell Distribution Width 16.6 % (11.5-14.5) Platelet Count 286 x10^3/uL (140-400) Neutrophils (%) (Auto) 81 % (31-73) Lymphocytes (%) (Auto) 11 % (24-48) Monocytes (%) (Auto) 7 % (0-9) Eosinophils (%) (Auto) 1 % (0-3) Basophils (%) (Auto) 1 % (0-3) Neutrophils # (Auto) 6.5 x10^3uL (1.8-7.7) Lymphocytes # (Auto) 0.8 x10^3/uL (1.0-4.8) Monocytes # (Auto) 0.5 x10^3/uL (0.0-1.1) Eosinophils # (Auto) 0.1 x10^3/uL (0.0-0.7) Basophils # (Auto) 0.0 x10^3/uL (0.0-0.2) Sodium Level 142 mmol/L (136-145) Potassium Level 4.3 mmol/L (3.5-5.1) Chloride Level 99 mmol/L (98-107) Carbon Dioxide Level 40 mmol/L (21-32) Anion Gap 3 (6-14) Blood Urea Nitrogen 12 mg/dL (7-20) Creatinine 0.7 mg/dL (0.6-1.0) Estimated GFR (Cockcroft-Gault) 102.3 BUN/Creatinine Ratio 17 (6-20) Glucose Level 71 mg/dL (70-99) Calcium Level 9.8 mg/dL (8.5-10.1) Total Bilirubin 0.5 mg/dL (0.2-1.0) Aspartate Amino Transf (AST/SGOT) 19 U/L (15-37) Alanine Aminotransferase (ALT/SGPT) 27 U/L (14-59) Alkaline Phosphatase 112 U/L (46-116) Troponin I Quantitative < 0.017 ng/mL (0.000-0.055) QK-Dxy-J-Type Natriuretic Peptide 2970 pg/mL (0-124) Total Protein 7.5 g/dL (6.4-8.2) Albumin 3.3 g/dL (3.4-5.0) Albumin/Globulin Ratio 0.8 (1.0-1.7) Laboratory Tests Test 11/10/17 15:40 White Blood Count 8.0 x10^3/uL (4.0-11.0) Red Blood Count 3.57 x10^6/uL (3.50-5.40) Hemoglobin 9.6 g/dL (12.0-15.5) Hematocrit 30.8 % (36.0-47.0) Mean Corpuscular Volume 87 fL (79-100) Mean Corpuscular Hemoglobin 27 pg (25-35) Mean Corpuscular Hemoglobin Concent 31 g/dL (31-37) Red Cell Distribution Width 16.6 % (11.5-14.5) Platelet Count 286 x10^3/uL (140-400) Neutrophils (%) (Auto) 81 % (31-73) Lymphocytes (%) (Auto) 11 % (24-48) Monocytes (%) (Auto) 7 % (0-9) Eosinophils (%) (Auto) 1 % (0-3) Basophils (%) (Auto) 1 % (0-3) Neutrophils # (Auto) 6.5 x10^3uL (1.8-7.7) Lymphocytes # (Auto) 0.8 x10^3/uL (1.0-4.8) Monocytes # (Auto) 0.5 x10^3/uL (0.0-1.1) Eosinophils # (Auto) 0.1 x10^3/uL (0.0-0.7) Basophils # (Auto) 0.0 x10^3/uL (0.0-0.2) Sodium Level 142 mmol/L (136-145) Potassium Level 4.3 mmol/L (3.5-5.1) Chloride Level 99 mmol/L (98-107) Carbon Dioxide Level 40 mmol/L (21-32) Anion Gap 3 (6-14) Blood Urea Nitrogen 12 mg/dL (7-20) Creatinine 0.7 mg/dL (0.6-1.0) Estimated GFR (Cockcroft-Gault) 102.3 BUN/Creatinine Ratio 17 (6-20) Glucose Level 71 mg/dL (70-99) Calcium Level 9.8 mg/dL (8.5-10.1) Total Bilirubin 0.5 mg/dL (0.2-1.0) Aspartate Amino Transf (AST/SGOT) 19 U/L (15-37) Alanine Aminotransferase (ALT/SGPT) 27 U/L (14-59) Alkaline Phosphatase 112 U/L (46-116) Troponin I Quantitative < 0.017 ng/mL (0.000-0.055) WD-Maj-F-Type Natriuretic Peptide 2970 pg/mL (0-124) Total Protein 7.5 g/dL (6.4-8.2) Albumin 3.3 g/dL (3.4-5.0) Albumin/Globulin Ratio 0.8 (1.0-1.7) VTE Prophylaxis Ordered VTE Prophylaxis Devices: Yes VTE Pharmacological Prophylaxi: Yes Assessment/Plan Assessment/Plan acute on chronic combined CHF, morbid obesity, BMI 45 weakness and debility Dm2, insulin dependent LÓPEZ BARRIOS MD Nov 10, 2017 20:01
[2017-11-10] MEDS: MORPHINE SULFATE 2 MG/ML VIAL. IV PRN (21:40)
[2017-11-11] VITALS (7 sets, daily range): BP systolic 109–170; BP diastolic 42–62
[2017-11-11] MEDS: ATORVASTATIN CALCIUM 20 MG TABLET PO SCH ×2 (00:32→21:40)
[2017-11-11] MEDS: POTASSIUM CHLORIDE 10 MEQ TABLET.ER. PO SCH ×3 (00:32→21:41)
[2017-11-11] MEDS: oxyCODONE/APAP 10/325 1 TAB TABLET PO PRN ×2 (00:32→21:54)
[2017-11-11] MEDS: METOPROLOL TART IMMED RELEASE 25 MG TABLET. PO SCH ×3 (00:32→21:41)
[2017-11-11] MEDS: ZOLPIDEM 5 MG TABLET. PO PRN (00:32)
[2017-11-11] MEDS: INSULIN GLARGINE 300 UNITS/3 ML INSULN.PEN. SQ SCH ×3 (00:37→21:44)
[2017-11-11] MEDS: INSULIN LISPRO 300 UNITS/3 ML INSULN.PEN. SQ SCH ×4 (01:39→17:29)
[2017-11-11] MEDS: MORPHINE SULFATE 2 MG/ML VIAL. IV PRN ×2 (08:55→13:14)
[2017-11-11] MEDS: LOSARTAN POTASSIUM 50 MG TABLET. PO SCH (08:56)
[2017-11-11] MEDS: FERROUS SULFATE 325 MG TABLET. PO SCH (08:56)
[2017-11-11] MEDS: ASPIRIN ENTERIC COATED 81 MG TABLET.DR. PO SCH (08:56)
[2017-11-11] MEDS: CLOPIDOGREL BISULFATE 75 MG TABLET PO SCH (08:56)
[2017-11-11] MEDS: PANTOPRAZOLE 40 MG TABLET.DR. PO SCH (08:56)
[2017-11-11] MEDS: GLIMEPIRIDE 2 MG TABLET. PO SCH (08:56)
[2017-11-11] MEDS: FUROSEMIDE 40 MG/4 ML VIAL. IVP SCH ×2 (09:00→13:08)
--- NOTE | 2017-11-11 11:08 | PDOC ---
PROGRESS NOTES History of Present Illness History of Present Illness Assessment/Plan Assessment/Plan acute on chronic combined CHF, morbid obesity, BMI 44 weakness and debility Dm2, insulin dependent Vitals Vitals Vital Signs Date Time Temp Pulse Resp B/P (MAP) Pulse Ox O2 Delivery O2 Flow Rate FiO2 11/11/17 08:56 76 160/52 11/11/17 08:55 Nasal Cannula 3.0 11/11/17 07:00 97.0 22 95 97.0 Physical Exam General: Alert, Oriented X3, Cooperative, No acute distress, mild distress Heart: Regular rate, Normal S1, Normal S2, Other (no changes in murmur) Lungs: Clear Abdomen: Normal bowel sounds, Soft Extremities: No clubbing, No cyanosis, Other (+ edema) Skin: No rashes Labs LABS Laboratory Tests Test 11/10/17 15:40 11/10/17 20:35 11/10/17 21:37 11/11/17 00:12 White Blood Count 8.0 x10^3/uL (4.0-11.0) Red Blood Count 3.57 x10^6/uL (3.50-5.40) Hemoglobin 9.6 g/dL (12.0-15.5) Hematocrit 30.8 % (36.0-47.0) Mean Corpuscular Volume 87 fL (79-100) Mean Corpuscular Hemoglobin 27 pg (25-35) Mean Corpuscular Hemoglobin Concent 31 g/dL (31-37) Red Cell Distribution Width 16.6 % (11.5-14.5) Platelet Count 286 x10^3/uL (140-400) Neutrophils (%) (Auto) 81 % (31-73) Lymphocytes (%) (Auto) 11 % (24-48) Monocytes (%) (Auto) 7 % (0-9) Eosinophils (%) (Auto) 1 % (0-3) Basophils (%) (Auto) 1 % (0-3) Neutrophils # (Auto) 6.5 x10^3uL (1.8-7.7) Lymphocytes # (Auto) 0.8 x10^3/uL (1.0-4.8) Monocytes # (Auto) 0.5 x10^3/uL (0.0-1.1) Eosinophils # (Auto) 0.1 x10^3/uL (0.0-0.7) Basophils # (Auto) 0.0 x10^3/uL (0.0-0.2) Sodium Level 142 mmol/L (136-145) Potassium Level 4.3 mmol/L (3.5-5.1) Chloride Level 99 mmol/L (98-107) Carbon Dioxide Level 40 mmol/L (21-32) Anion Gap 3 (6-14) Blood Urea Nitrogen 12 mg/dL (7-20) Creatinine 0.7 mg/dL (0.6-1.0) Estimated GFR (Cockcroft-Gault) 102.3 BUN/Creatinine Ratio 17 (6-20) Glucose Level 71 mg/dL (70-99) Calcium Level 9.8 mg/dL (8.5-10.1) Total Bilirubin 0.5 mg/dL (0.2-1.0) Aspartate Amino Transf (AST/SGOT) 19 U/L (15-37) Alanine Aminotransferase (ALT/SGPT) 27 U/L (14-59) Alkaline Phosphatase 112 U/L (46-116) Troponin I Quantitative < 0.017 ng/mL (0.000-0.055) SK-Bua-Z-Type Natriuretic Peptide 2970 pg/mL (0-124) Total Protein 7.5 g/dL (6.4-8.2) Albumin 3.3 g/dL (3.4-5.0) Albumin/Globulin Ratio 0.8 (1.0-1.7) Glucose (Fingerstick) 53 mg/dL (70-99) 137 mg/dL (70-99) 92 mg/dL (70-99) Test 11/11/17 07:40 Glucose (Fingerstick) 117 mg/dL (70-99) Review of Systems Review of Systems Past Medical History Cardiovascular: CAD, CHF, HTN, [place], Hyperlipidemia Pulmonary: COPD, Other CENTRAL NERVOUS SYSTEM: Periperal neuropathy GI: GERD Heme/Onc: No pertinent hx Hepatobiliary: No pertinent hx Psych: No pertinent hx Musculoskeletal: low back pain, Osteoarthritis Rheumatologic: No pertinent hx Renal/: Chronic renal insuff Endocrine: Diabetes Past Surgical History Past Surgical History: Pacemaker, Appendectomy, Cholecystectomy, CABG, Hernia Repair, Total knee replacement, Hysterectomy, Other Family History Family History: Diabetes Social History Smoke: No ALCOHOL: none Drugs: None Comment Review of Relevant I have reviewed the following items nolan (where applicable) has been applied. Labs Laboratory Tests Test 11/10/17 15:40 11/10/17 20:35 11/10/17 21:37 11/11/17 00:12 White Blood Count 8.0 x10^3/uL (4.0-11.0) Red Blood Count 3.57 x10^6/uL (3.50-5.40) Hemoglobin 9.6 g/dL (12.0-15.5) Hematocrit 30.8 % (36.0-47.0) Mean Corpuscular Volume 87 fL (79-100) Mean Corpuscular Hemoglobin 27 pg (25-35) Mean Corpuscular Hemoglobin Concent 31 g/dL (31-37) Red Cell Distribution Width 16.6 % (11.5-14.5) Platelet Count 286 x10^3/uL (140-400) Neutrophils (%) (Auto) 81 % (31-73) Lymphocytes (%) (Auto) 11 % (24-48) Monocytes (%) (Auto) 7 % (0-9) Eosinophils (%) (Auto) 1 % (0-3) Basophils (%) (Auto) 1 % (0-3) Neutrophils # (Auto) 6.5 x10^3uL (1.8-7.7) Lymphocytes # (Auto) 0.8 x10^3/uL (1.0-4.8) Monocytes # (Auto) 0.5 x10^3/uL (0.0-1.1) Eosinophils # (Auto) 0.1 x10^3/uL (0.0-0.7) Basophils # (Auto) 0.0 x10^3/uL (0.0-0.2) Sodium Level 142 mmol/L (136-145) Potassium Level 4.3 mmol/L (3.5-5.1) Chloride Level 99 mmol/L (98-107) Carbon Dioxide Level 40 mmol/L (21-32) Anion Gap 3 (6-14) Blood Urea Nitrogen 12 mg/dL (7-20) Creatinine 0.7 mg/dL (0.6-1.0) Estimated GFR (Cockcroft-Gault) 102.3 BUN/Creatinine Ratio 17 (6-20) Glucose Level 71 mg/dL (70-99) Calcium Level 9.8 mg/dL (8.5-10.1) Total Bilirubin 0.5 mg/dL (0.2-1.0) Aspartate Amino Transf (AST/SGOT) 19 U/L (15-37) Alanine Aminotransferase (ALT/SGPT) 27 U/L (14-59) Alkaline Phosphatase 112 U/L (46-116) Troponin I Quantitative < 0.017 ng/mL (0.000-0.055) SX-Cem-Y-Type Natriuretic Peptide 2970 pg/mL (0-124) Total Protein 7.5 g/dL (6.4-8.2) Albumin 3.3 g/dL (3.4-5.0) Albumin/Globulin Ratio 0.8 (1.0-1.7) Glucose (Fingerstick) 53 mg/dL (70-99) 137 mg/dL (70-99) 92 mg/dL (70-99) Test 11/11/17 07:40 Glucose (Fingerstick) 117 mg/dL (70-99) Laboratory Tests Test 11/10/17 15:40 11/10/17 20:35 11/10/17 21:37 11/11/17 00:12 White Blood Count 8.0 x10^3/uL (4.0-11.0) Red Blood Count 3.57 x10^6/uL (3.50-5.40) Hemoglobin 9.6 g/dL (12.0-15.5) Hematocrit 30.8 % (36.0-47.0) Mean Corpuscular Volume 87 fL (79-100) Mean Corpuscular Hemoglobin 27 pg (25-35) Mean Corpuscular Hemoglobin Concent 31 g/dL (31-37) Red Cell Distribution Width 16.6 % (11.5-14.5) Platelet Count 286 x10^3/uL (140-400) Neutrophils (%) (Auto) 81 % (31-73) Lymphocytes (%) (Auto) 11 % (24-48) Monocytes (%) (Auto) 7 % (0-9) Eosinophils (%) (Auto) 1 % (0-3) Basophils (%) (Auto) 1 % (0-3) Neutrophils # (Auto) 6.5 x10^3uL (1.8-7.7) Lymphocytes # (Auto) 0.8 x10^3/uL (1.0-4.8) Monocytes # (Auto) 0.5 x10^3/uL (0.0-1.1) Eosinophils # (Auto) 0.1 x10^3/uL (0.0-0.7) Basophils # (Auto) 0.0 x10^3/uL (0.0-0.2) Sodium Level 142 mmol/L (136-145) Potassium Level 4.3 mmol/L (3.5-5.1) Chloride Level 99 mmol/L (98-107) Carbon Dioxide Level 40 mmol/L (21-32) Anion Gap 3 (6-14) Blood Urea Nitrogen 12 mg/dL (7-20) Creatinine 0.7 mg/dL (0.6-1.0) Estimated GFR (Cockcroft-Gault) 102.3 BUN/Creatinine Ratio 17 (6-20) Glucose Level 71 mg/dL (70-99) Calcium Level 9.8 mg/dL (8.5-10.1) Total Bilirubin 0.5 mg/dL (0.2-1.0) Aspartate Amino Transf (AST/SGOT) 19 U/L (15-37) Alanine Aminotransferase (ALT/SGPT) 27 U/L (14-59) Alkaline Phosphatase 112 U/L (46-116) Troponin I Quantitative < 0.017 ng/mL (0.000-0.055) JI-Sqv-Y-Type Natriuretic Peptide 2970 pg/mL (0-124) Total Protein 7.5 g/dL (6.4-8.2) Albumin 3.3 g/dL (3.4-5.0) Albumin/Globulin Ratio 0.8 (1.0-1.7) Glucose (Fingerstick) 53 mg/dL (70-99) 137 mg/dL (70-99) 92 mg/dL (70-99) Test 11/11/17 07:40 Glucose (Fingerstick) 117 mg/dL (70-99) Medications Current Medications Fentanyl Citrate (Fentanyl 2ml Vial) 50 mcg 1X ONCE IV ; Start 11/10/17 at 14: 00; Stop 11/10/17 at 14:02; Status DC Ondansetron HCl (Zofran) 4 mg 1X ONCE IV ; Start 11/10/17 at 14:00; Stop at 14:02; Status DC Morphine Sulfate (Morphine Sulfate) 8 mg 1X ONCE IM Last administered on at 15:42; Start 11/10/17 at 16:00; Stop 11/10/17 at 16:01; Status DC Furosemide (Lasix) 60 mg BID92 IVP Last administered on 11/11/17 09:00; Start 11/10/17 at 17:00 Aspirin (Ecotrin) 81 mg DAILY PO Last administered on 11/11/17 08:56; Start at 09:00 Atorvastatin Calcium (Lipitor) 20 mg HS PO Last administered on 11/11/17at 00:32 ; Start 11/10/17 at 21:00 Clopidogrel Bisulfate (Plavix) 75 mg DAILY PO Last administered on 11/11/17 08 :56; Start 11/11/17 at 09:00 Ferrous Sulfate (Feosol) 325 mg DAILY PO Last administered on 11/11/17at 08:56; Start 11/11/17 at 09:00 Glimepiride (Amaryl) 2 mg DAILY PO Last administered on 11/11/17 08:56; Start 11/11/17 at 09:00 Insulin Human Lispro (HumaLOG) 20 units TIDWMEALS SQ Last administered on 09:18; Start 11/10/17 at 18:00 Losartan Potassium (Cozaar) 50 mg DAILY PO Last administered on 11/11/17 08:56 ; Start 11/11/17 at 09:00 Metoprolol Tartrate (Lopressor) 25 mg BID PO Last administered on 11/11/17at 08: 56; Start 11/10/17 at 21:00 Nitroglycerin (Nitrostat) 0.4 mg PRN Q5MIN PRN SL CHEST PAIN; Start 11/10/17 at 17:15 Oxycodone/ Acetaminophen (Percocet 10/325) 1 tab PRN Q4HRS PRN PO PAIN Last administered on 11/11/17at 00:32; Start 11/10/17 at 17:15 Potassium Chloride (Klor-Con) 10 meq BID PO Last administered on 11/11/17at 08: 56; Start 11/10/17 at 21:00 Non-Formulary Medication (Albuterol Sulfate (Albuterol Sulfate Conc Neb Soln)) 5 mg PRN PRN NEB WHEEZING; Start 11/10/17 at 17:15; Stop 11/10/17 at 17:27; Status DC Insulin Glargine (Lantus) 32 units BID SQ Last administered on 11/11/17at 09:17 ; Start 11/10/17 at 21:00 Pantoprazole Sodium (Protonix) 40 mg DAILYAC PO Last administered on 11/11/17at 08:56; Start 11/11/17 at 07:30 Zolpidem Tartrate (Ambien) 5 mg PRN QHS PRN PO INSOMNIA Last administered on at 00:32; Start 11/10/17 at 17:15 Ondansetron HCl (Zofran) 4 mg PRN Q8HRS PRN IV NAUSEA/VOMITING; Start 11/10/17 at 17:15; Stop 11/11/17 at 17:14 Morphine Sulfate (Morphine Sulfate) 2 mg PRN Q2HR PRN IV PAIN Last administered on 11/11/17at 08:55; Start 11/10/17 at 17:15; Stop 11/11/17 at 17:14 Albuterol Sulfate (Ventolin Neb Soln) 2.5 mg PRN Q6HRS PRN NEB SHORTNESS OF BREATH; Start 11/10/17 at 17:30 Active Scripts Active [Pantoprazole] 40 MG Tablet.dr 40 Mg PO DAILYAC 30 Days Amaryl (Glimepiride) 2 Mg Tablet 2 Mg PO DAILY 30 Days Reported Furosemide 80 Mg Tablet 60 Mg PO DAILY Levemir Flextouch (Insulin Detemir) 100 Unit/1 Ml Insuln.pen 32 Unit SQ BID Novolog (Insulin Aspart) 100 Unit/1 Ml Vial 20 Unit SQ TIDAC Albuterol Sulfate Conc Neb Soln (Albuterol Sulfate) 2.5 Mg/0.5 Ml Vial.neb 5 Mg NEB PRN PRN Percocet 10-325 Mg Tablet (Oxycodone/Acetaminophen) 1 Each Tablet 2 Tab PO PRN Q4HRS PRN Percocet 10-325 Mg Tablet (Oxycodone/Acetaminophen) 1 Each Tablet 1 Tab PO PRN Q4HRS PRN Losartan Potassium 50 Mg Tablet 50 Mg PO DAILY Metoprolol Tartrate 25 Mg Tablet 1 Tab PO BID Ferrous Sulfate 325 Mg Tablet 1 Tab PO DAILY NITROGLYCERIN SubLingual (Nitroglycerin) 0.4 Mg Tab.subl 0.4 Mg SL PRN Q5MIN PRN Atorvastatin Calcium 20 Mg Tablet 20 Mg PO HS Potassium Chloride 10 Meq Capsule.er 10 Meq PO BID Aspir 81 (Aspirin) 81 Mg Tablet.dr 1 Tab PO DAILY Clopidogrel (Clopidogrel Bisulfate) 75 Mg Tablet 1 Tab PO DAILY Vitals/I & O Vital Sign - Last 24 Hours 11/10/17 11/10/17 11/10/17 11/10/17 13:54 14:41 15:20 15:42 Temp 99.3 99.3 Pulse 57 64 64 Resp 16 20 20 B/P (MAP) 186/74 (111) 164/71 (102) 165/60 (95) Pulse Ox 95 98 98 O2 Delivery Room Air Nasal Cannula Nasal Cannula Nasal Cannula O2 Flow Rate 3.0 3.0 3.0 11/10/17 11/10/17 11/10/17 11/10/17 15:50 16:20 16:58 17:25 Pulse 60 60 60 68 Resp 22 24 20 22 B/P (MAP) 164/79 (107) 179/62 (101) 169/79 (109) 183/84 (117) Pulse Ox 97 97 97 99 O2 Delivery Nasal Cannula Nasal Cannula Nasal Cannula Nasal Cannula O2 Flow Rate 3.0 3.0 3.0 3.0 11/10/17 11/10/17 11/11/17 11/11/17 17:55 21:40 00:20 00:32 Temp 97.9 97.9 Pulse 60 64 64 Resp 16 18 B/P (MAP) 168/98 (121) 170/62 (98) 170/62 Pulse Ox 99 95 95 O2 Delivery Nasal Cannula Nasal Cannula Room Air O2 Flow Rate 3.0 11/11/17 11/11/17 11/11/17 11/11/17 00:32 01:10 03:00 07:00 Temp 97.9 97.0 97.9 97.0 Pulse 61 76 Resp 18 22 B/P (MAP) 109/43 (65) 160/52 (88) Pulse Ox 97 95 O2 Delivery Nasal Cannula Nasal Cannula Nasal Cannula Nasal Cannula O2 Flow Rate 3.0 3.0 3.0 3.0 11/11/17 11/11/17 11/11/17 08:55 08:56 08:56 Pulse 76 76 B/P (MAP) 160/52 160/52 O2 Delivery Nasal Cannula O2 Flow Rate 3.0 Intake and Output 11/10/17 11/10/17 11/11/17 15:00 23:00 07:00 Output Total 1050 ml Balance -1050 ml JHON ZAPIEN MD Nov 11, 2017 11:08
--- NOTE | 2017-11-11 18:37 | PDOC ---
PROGRESS NOTES Subjective Subjective Patient feels a little better, less short of breath, Objective Objective Vital Signs Date Time Temp Pulse Resp B/P (MAP) Pulse Ox O2 Delivery O2 Flow Rate FiO2 11/11/17 15:00 99.5 60 22 146/42 (76) 96 Nasal Cannula 3.0 99.5 Intake and Output 11/11/17 07:00 Output Total 1050 ml Balance -1050 ml Output Urine Total 1050 ml # Voids 7 Physical Exam Physical Exam Moving air better. Less rales. No changes in heart sounds. Less edema of the legs. Assessment Assessment Patient is having a good diuresis. CHF improving. Continue with the IV Lasix. Comment Review of Relevant I have reviewed the following items noaln (where applicable) has been applied. Labs Laboratory Tests Test 11/10/17 15:40 11/10/17 20:35 11/10/17 21:37 11/11/17 00:12 White Blood Count 8.0 x10^3/uL (4.0-11.0) Red Blood Count 3.57 x10^6/uL (3.50-5.40) Hemoglobin 9.6 g/dL (12.0-15.5) Hematocrit 30.8 % (36.0-47.0) Mean Corpuscular Volume 87 fL (79-100) Mean Corpuscular Hemoglobin 27 pg (25-35) Mean Corpuscular Hemoglobin Concent 31 g/dL (31-37) Red Cell Distribution Width 16.6 % (11.5-14.5) Platelet Count 286 x10^3/uL (140-400) Neutrophils (%) (Auto) 81 % (31-73) Lymphocytes (%) (Auto) 11 % (24-48) Monocytes (%) (Auto) 7 % (0-9) Eosinophils (%) (Auto) 1 % (0-3) Basophils (%) (Auto) 1 % (0-3) Neutrophils # (Auto) 6.5 x10^3uL (1.8-7.7) Lymphocytes # (Auto) 0.8 x10^3/uL (1.0-4.8) Monocytes # (Auto) 0.5 x10^3/uL (0.0-1.1) Eosinophils # (Auto) 0.1 x10^3/uL (0.0-0.7) Basophils # (Auto) 0.0 x10^3/uL (0.0-0.2) Sodium Level 142 mmol/L (136-145) Potassium Level 4.3 mmol/L (3.5-5.1) Chloride Level 99 mmol/L (98-107) Carbon Dioxide Level 40 mmol/L (21-32) Anion Gap 3 (6-14) Blood Urea Nitrogen 12 mg/dL (7-20) Creatinine 0.7 mg/dL (0.6-1.0) Estimated GFR (Cockcroft-Gault) 102.3 BUN/Creatinine Ratio 17 (6-20) Glucose Level 71 mg/dL (70-99) Calcium Level 9.8 mg/dL (8.5-10.1) Total Bilirubin 0.5 mg/dL (0.2-1.0) Aspartate Amino Transf (AST/SGOT) 19 U/L (15-37) Alanine Aminotransferase (ALT/SGPT) 27 U/L (14-59) Alkaline Phosphatase 112 U/L (46-116) Troponin I Quantitative < 0.017 ng/mL (0.000-0.055) [id number] Natriuretic Peptide 2970 pg/mL (0-124) Total Protein 7.5 g/dL (6.4-8.2) Albumin 3.3 g/dL (3.4-5.0) Albumin/Globulin Ratio 0.8 (1.0-1.7) Glucose (Fingerstick) 53 mg/dL (70-99) 137 mg/dL (70-99) 92 mg/dL (70-99) Test 11/11/17 07:40 11/11/17 11:11 11/11/17 16:40 Glucose (Fingerstick) 117 mg/dL (70-99) 99 mg/dL (70-99) 117 mg/dL (70-99) Laboratory Tests Test 11/10/17 20:35 11/10/17 21:37 11/11/17 00:12 11/11/17 07:40 Glucose (Fingerstick) 53 mg/dL (70-99) 137 mg/dL (70-99) 92 mg/dL (70-99) 117 mg/dL (70-99) Test 11/11/17 11:11 11/11/17 16:40 Glucose (Fingerstick) 99 mg/dL (70-99) 117 mg/dL (70-99) Medications Current Medications Fentanyl Citrate (Fentanyl 2ml Vial) 50 mcg 1X ONCE IV ; Start 11/10/17 at 14: 00; Stop 11/10/17 at 14:02; Status DC Ondansetron HCl (Zofran) 4 mg 1X ONCE IV ; Start 11/10/17 at 14:00; Stop at 14:02; Status DC Morphine Sulfate (Morphine Sulfate) 8 mg 1X ONCE IM Last administered on at 15:42; Start 11/10/17 at 16:00; Stop 11/10/17 at 16:01; Status DC Furosemide (Lasix) 60 mg BID92 IVP Last administered on 11/11/17at 13:08; Start 11/10/17 at 17:00 Aspirin (Ecotrin) 81 mg DAILY PO Last administered on 11/11/17at 08:56; Start at 09:00 Atorvastatin Calcium (Lipitor) 20 mg HS PO Last administered on 11/11/17at 00:32 ; Start 11/10/17 at 21:00 Clopidogrel Bisulfate (Plavix) 75 mg DAILY PO Last administered on 11/11/17at 08 :56; Start 11/11/17 at 09:00 Ferrous Sulfate (Feosol) 325 mg DAILY PO Last administered on 11/11/17at 08:56; Start 11/11/17 at 09:00 Glimepiride (Amaryl) 2 mg DAILY PO Last administered on 11/11/17at 08:56; Start 11/11/17 at 09:00 Insulin Human Lispro (HumaLOG) 20 units TIDWMEALS SQ Last administered on at 17:29; Start 11/10/17 at 18:00 Losartan Potassium (Cozaar) 50 mg DAILY PO Last administered on 11/11/17at 08:56 ; Start 11/11/17 at 09:00 Metoprolol Tartrate (Lopressor) 25 mg BID PO Last administered on 11/11/17at 08: 56; Start 11/10/17 at 21:00 Nitroglycerin (Nitrostat) 0.4 mg PRN Q5MIN PRN SL CHEST PAIN; Start 11/10/17 at 17:15 Oxycodone/ Acetaminophen (Percocet 10/325) 1 tab PRN Q4HRS PRN PO PAIN Last administered on 11/11/17at 00:32; Start 11/10/17 at 17:15 Potassium Chloride (Klor-Con) 10 meq BID PO Last administered on 11/11/17at 08: 56; Start 11/10/17 at 21:00 Non-Formulary Medication (Albuterol Sulfate (Albuterol Sulfate Conc Neb Soln)) 5 mg PRN PRN NEB WHEEZING; Start 11/10/17 at 17:15; Stop 11/10/17 at 17:27; Status DC Insulin Glargine (Lantus) 32 units BID SQ Last administered on 11/11/17at 09:17 ; Start 11/10/17 at 21:00 Pantoprazole Sodium (Protonix) 40 mg DAILYAC PO Last administered on 11/11/17at 08:56; Start 11/11/17 at 07:30 Zolpidem Tartrate (Ambien) 5 mg PRN QHS PRN PO INSOMNIA Last administered on at 00:32; Start 11/10/17 at 17:15 Ondansetron HCl (Zofran) 4 mg PRN Q8HRS PRN IV NAUSEA/VOMITING; Start 11/10/17 at 17:15; Stop 11/11/17 at 17:14; Status DC Morphine Sulfate (Morphine Sulfate) 2 mg PRN Q2HR PRN IV PAIN Last administered on 11/11/17at 13:14; Start 11/10/17 at 17:15; Stop 11/11/17 at 17:14 ; Status DC Albuterol Sulfate (Ventolin Neb Soln) 2.5 mg PRN Q6HRS PRN NEB SHORTNESS OF BREATH; Start 11/10/17 at 17:30 Active Scripts Active [Pantoprazole] 40 MG Tablet.dr 40 Mg PO DAILYAC 30 Days Amaryl (Glimepiride) 2 Mg Tablet 2 Mg PO DAILY 30 Days Reported Furosemide 80 Mg Tablet 60 Mg PO DAILY Levemir Flextouch (Insulin Detemir) 100 Unit/1 Ml Insuln.pen 32 Unit SQ BID Novolog (Insulin Aspart) 100 Unit/1 Ml Vial 20 Unit SQ TIDAC Albuterol Sulfate Conc Neb Soln (Albuterol Sulfate) 2.5 Mg/0.5 Ml Vial.neb 5 Mg NEB PRN PRN Percocet 10-325 Mg Tablet (Oxycodone/Acetaminophen) 1 Each Tablet 2 Tab PO PRN Q4HRS PRN Percocet 10-325 Mg Tablet (Oxycodone/Acetaminophen) 1 Each Tablet 1 Tab PO PRN Q4HRS PRN Losartan Potassium 50 Mg Tablet 50 Mg PO DAILY Metoprolol Tartrate 25 Mg Tablet 1 Tab PO BID Ferrous Sulfate 325 Mg Tablet 1 Tab PO DAILY NITROGLYCERIN SubLingual (Nitroglycerin) 0.4 Mg Tab.subl 0.4 Mg SL PRN Q5MIN PRN Atorvastatin Calcium 20 Mg Tablet 20 Mg PO HS Potassium Chloride 10 Meq Capsule.er 10 Meq PO BID Aspir 81 (Aspirin) 81 Mg Tablet. 1 Tab PO DAILY Clopidogrel (Clopidogrel Bisulfate) 75 Mg Tablet 1 Tab PO DAILY Vitals/I & O Vital Sign - Last 24 Hours 11/10/17 11/11/17 11/11/17 11/11/17 21:40 00:20 00:32 00:32 Temp 97.9 97.9 Pulse 64 64 Resp 16 18 B/P (MAP) 170/62 (98) 170/62 Pulse Ox 95 95 O2 Delivery Nasal Cannula Room Air Nasal Cannula O2 Flow Rate 3.0 11/11/17 11/11/17 11/11/17 11/11/17 01:10 03:00 07:00 08:00 Temp 97.9 97.0 97.9 97.0 Pulse 61 76 Resp 18 22 B/P (MAP) 109/43 (65) 160/52 (88) Pulse Ox 97 95 O2 Delivery Nasal Cannula Nasal Cannula Nasal Cannula Nasal Cannula O2 Flow Rate 3.0 3.0 3.0 3.0 11/11/17 11/11/17 11/11/17 11/11/17 08:55 08:56 08:56 09:25 Pulse 76 76 B/P (MAP) 160/52 160/52 O2 Delivery Nasal Cannula Nasal Cannula O2 Flow Rate 3.0 3.0 11/11/17 11/11/17 11/11/17 11:00 13:14 15:00 Temp 98.2 99.5 98.2 99.5 Pulse 63 60 Resp 24 22 B/P (MAP) 143/60 (87) 146/42 (76) Pulse Ox 92 96 O2 Delivery Nasal Cannula Nasal Cannula Nasal Cannula O2 Flow Rate 3.0 3.0 3.0 Intake and Output 11/10/17 11/10/17 11/11/17 15:00 23:00 07:00 Output Total 1050 ml Balance -1050 ml LIZBET LINDSAY MD Nov 11, 2017 18:37
[2017-11-12 03:00] VITALS: BP 138/51
[2017-11-12] MEDS: oxyCODONE/APAP 10/325 1 TAB TABLET PO PRN (05:55)
[2017-11-12 07:00] VITALS: BP 139/58
[2017-11-12] MEDS: INSULIN LISPRO 300 UNITS/3 ML INSULN.PEN. SQ SCH ×3 (08:00→16:18)
[2017-11-12 08:43] LABS: BASO % 0 % (0-3); EOS # 0.1 x10^3/uL (0.0-0.7); EOS % 1 % (0-3); HEMATOCRIT 30.2 % (36.0-47.0); HEMOGLOBIN 9.9 g/dL (12.0-15.5); LYMPH # 1.1 x10^3/uL (1.0-4.8); LYMPH % 15 % (24-48); MEAN CORPUSCULAR HEMOGLOBIN 28 pg (25-35); MEAN CORPUSCULAR HGB CONC 33 g/dL (31-37); MEAN CORPUSCULAR VOLUME 86 fL (79-100); MONO # 0.5 x10^3/uL (0.0-1.1); MONO % 7 % (0-9); NEUT # 5.5 x10^3uL (1.8-7.7); NEUT % 76 % (31-73); PLATELET COUNT 315 x10^3/uL (140-400); RED BLOOD COUNT 3.51 x10^6/uL (3.50-5.40); WHITE BLOOD COUNT 7.2 x10^3/uL (4.0-11.0)
[2017-11-12] MEDS: METOPROLOL TART IMMED RELEASE 25 MG TABLET. PO SCH ×2 (09:13→21:53)
[2017-11-12] MEDS: ASPIRIN ENTERIC COATED 81 MG TABLET.DR. PO SCH (09:13)
[2017-11-12] MEDS: GLIMEPIRIDE 2 MG TABLET. PO SCH (09:14)
[2017-11-12] MEDS: FUROSEMIDE 40 MG/4 ML VIAL. IVP SCH (09:14)
[2017-11-12] MEDS: POTASSIUM CHLORIDE 10 MEQ TABLET.ER. PO SCH ×2 (09:14→21:53)
[2017-11-12] MEDS: PANTOPRAZOLE 40 MG TABLET.DR. PO SCH (09:14)
[2017-11-12] MEDS: CLOPIDOGREL BISULFATE 75 MG TABLET PO SCH (09:14)
[2017-11-12] MEDS: FERROUS SULFATE 325 MG TABLET. PO SCH (09:14)
[2017-11-12] MEDS: LOSARTAN POTASSIUM 50 MG TABLET. PO SCH (09:14)
[2017-11-12] MEDS: INSULIN GLARGINE 300 UNITS/3 ML INSULN.PEN. SQ SCH ×2 (09:23→21:58)
[2017-11-12 09:28] LABS: BLOOD UREA NITROGEN 18 mg/dL (7-20); CALCIUM 9.3 mg/dL (8.5-10.1); CARBON DIOXIDE 43 mmol/L (21-32); CHLORIDE 97 mmol/L (98-107); CREATININE 0.9 mg/dL (0.6-1.0); GFR 76.5; GLUCOSE 115 mg/dL (70-99); POTASSIUM 4.1 mmol/L (3.5-5.1); SODIUM 138 mmol/L (136-145)
--- NOTE | 2017-11-12 10:40 | PDOC ---
PROGRESS NOTES History of Present Illness History of Present Illness Assessment/Plan Assessment/Plan acute on chronic combined CHF, morbid obesity, BMI 44 ANEMIA weakness and debility Dm2, insulin dependent CHG PO LASIX FE PANEL Vitals Vitals Vital Signs Date Time Temp Pulse Resp B/P (MAP) Pulse Ox O2 Delivery O2 Flow Rate FiO2 11/12/17 09:14 60 139/58 11/12/17 07:00 100.0 16 95 Nasal Cannula 3.0 100.0 Physical Exam General: Alert, Oriented X3, Cooperative, No acute distress, mild distress Heart: Regular rate, Normal S1, Normal S2, Other (no changes in murmur) Lungs: Clear Abdomen: Normal bowel sounds, Soft Extremities: No clubbing, No cyanosis, Other (+ edema) Skin: No rashes, No significant lesion Labs LABS Laboratory Tests Test 11/11/17 11:11 11/11/17 16:40 11/11/17 20:37 11/12/17 07:20 Glucose (Fingerstick) 99 mg/dL (70-99) 117 mg/dL (70-99) 206 mg/dL (70-99) 88 mg/dL (70-99) Test 11/12/17 08:15 White Blood Count 7.2 x10^3/uL (4.0-11.0) Red Blood Count 3.51 x10^6/uL (3.50-5.40) Hemoglobin 9.9 g/dL (12.0-15.5) Hematocrit 30.2 % (36.0-47.0) Mean Corpuscular Volume 86 fL (79-100) Mean Corpuscular Hemoglobin 28 pg (25-35) Mean Corpuscular Hemoglobin Concent 33 g/dL (31-37) Red Cell Distribution Width 16.0 % (11.5-14.5) Platelet Count 315 x10^3/uL (140-400) Neutrophils (%) (Auto) 76 % (31-73) Lymphocytes (%) (Auto) 15 % (24-48) Monocytes (%) (Auto) 7 % (0-9) Eosinophils (%) (Auto) 1 % (0-3) Basophils (%) (Auto) 0 % (0-3) Neutrophils # (Auto) 5.5 x10^3uL (1.8-7.7) Lymphocytes # (Auto) 1.1 x10^3/uL (1.0-4.8) Monocytes # (Auto) 0.5 x10^3/uL (0.0-1.1) Eosinophils # (Auto) 0.1 x10^3/uL (0.0-0.7) Basophils # (Auto) 0.0 x10^3/uL (0.0-0.2) Sodium Level 138 mmol/L (136-145) Potassium Level 4.1 mmol/L (3.5-5.1) Chloride Level 97 mmol/L (98-107) Carbon Dioxide Level 43 mmol/L (21-32) Anion Gap (6-14) Blood Urea Nitrogen 18 mg/dL (7-20) Creatinine 0.9 mg/dL (0.6-1.0) Estimated GFR (Cockcroft-Gault) 76.5 Glucose Level 115 mg/dL (70-99) Calcium Level 9.3 mg/dL (8.5-10.1) Comment Review of Relevant I have reviewed the following items nolan (where applicable) has been applied. Labs Laboratory Tests Test 11/10/17 15:40 11/10/17 20:35 11/10/17 21:37 11/11/17 00:12 White Blood Count 8.0 x10^3/uL (4.0-11.0) Red Blood Count 3.57 x10^6/uL (3.50-5.40) Hemoglobin 9.6 g/dL (12.0-15.5) Hematocrit 30.8 % (36.0-47.0) Mean Corpuscular Volume 87 fL (79-100) Mean Corpuscular Hemoglobin 27 pg (25-35) Mean Corpuscular Hemoglobin Concent 31 g/dL (31-37) Red Cell Distribution Width 16.6 % (11.5-14.5) Platelet Count 286 x10^3/uL (140-400) Neutrophils (%) (Auto) 81 % (31-73) Lymphocytes (%) (Auto) 11 % (24-48) Monocytes (%) (Auto) 7 % (0-9) Eosinophils (%) (Auto) 1 % (0-3) Basophils (%) (Auto) 1 % (0-3) Neutrophils # (Auto) 6.5 x10^3uL (1.8-7.7) Lymphocytes # (Auto) 0.8 x10^3/uL (1.0-4.8) Monocytes # (Auto) 0.5 x10^3/uL (0.0-1.1) Eosinophils # (Auto) 0.1 x10^3/uL (0.0-0.7) Basophils # (Auto) 0.0 x10^3/uL (0.0-0.2) Sodium Level 142 mmol/L (136-145) Potassium Level 4.3 mmol/L (3.5-5.1) Chloride Level 99 mmol/L (98-107) Carbon Dioxide Level 40 mmol/L (21-32) Anion Gap 3 (6-14) Blood Urea Nitrogen 12 mg/dL (7-20) Creatinine 0.7 mg/dL (0.6-1.0) Estimated GFR (Cockcroft-Gault) 102.3 BUN/Creatinine Ratio 17 (6-20) Glucose Level 71 mg/dL (70-99) Calcium Level 9.8 mg/dL (8.5-10.1) Total Bilirubin 0.5 mg/dL (0.2-1.0) Aspartate Amino Transf (AST/SGOT) 19 U/L (15-37) Alanine Aminotransferase (ALT/SGPT) 27 U/L (14-59) Alkaline Phosphatase 112 U/L (46-116) Troponin I Quantitative < 0.017 ng/mL (0.000-0.055) CH-Atw-W-Type Natriuretic Peptide 2970 pg/mL (0-124) Total Protein 7.5 g/dL (6.4-8.2) Albumin 3.3 g/dL (3.4-5.0) Albumin/Globulin Ratio 0.8 (1.0-1.7) Glucose (Fingerstick) 53 mg/dL (70-99) 137 mg/dL (70-99) 92 mg/dL (70-99) Test 11/11/17 07:40 11/11/17 11:11 11/11/17 16:40 11/11/17 20:37 Glucose (Fingerstick) 117 mg/dL (70-99) 99 mg/dL (70-99) 117 mg/dL (70-99) 206 mg/dL (70-99) Test 11/12/17 07:20 11/12/17 08:15 Glucose (Fingerstick) 88 mg/dL (70-99) White Blood Count 7.2 x10^3/uL (4.0-11.0) Red Blood Count 3.51 x10^6/uL (3.50-5.40) Hemoglobin 9.9 g/dL (12.0-15.5) Hematocrit 30.2 % (36.0-47.0) Mean Corpuscular Volume 86 fL (79-100) Mean Corpuscular Hemoglobin 28 pg (25-35) Mean Corpuscular Hemoglobin Concent 33 g/dL (31-37) Red Cell Distribution Width 16.0 % (11.5-14.5) Platelet Count 315 x10^3/uL (140-400) Neutrophils (%) (Auto) 76 % (31-73) Lymphocytes (%) (Auto) 15 % (24-48) Monocytes (%) (Auto) 7 % (0-9) Eosinophils (%) (Auto) 1 % (0-3) Basophils (%) (Auto) 0 % (0-3) Neutrophils # (Auto) 5.5 x10^3uL (1.8-7.7) Lymphocytes # (Auto) 1.1 x10^3/uL (1.0-4.8) Monocytes # (Auto) 0.5 x10^3/uL (0.0-1.1) Eosinophils # (Auto) 0.1 x10^3/uL (0.0-0.7) Basophils # (Auto) 0.0 x10^3/uL (0.0-0.2) Sodium Level 138 mmol/L (136-145) Potassium Level 4.1 mmol/L (3.5-5.1) Chloride Level 97 mmol/L (98-107) Carbon Dioxide Level 43 mmol/L (21-32) Anion Gap (6-14) Blood Urea Nitrogen 18 mg/dL (7-20) Creatinine 0.9 mg/dL (0.6-1.0) Estimated GFR (Cockcroft-Gault) 76.5 Glucose Level 115 mg/dL (70-99) Calcium Level 9.3 mg/dL (8.5-10.1) Laboratory Tests Test 11/11/17 11:11 11/11/17 16:40 11/11/17 20:37 11/12/17 07:20 Glucose (Fingerstick) 99 mg/dL (70-99) 117 mg/dL (70-99) 206 mg/dL (70-99) 88 mg/dL (70-99) Test 11/12/17 08:15 White Blood Count 7.2 x10^3/uL (4.0-11.0) Red Blood Count 3.51 x10^6/uL (3.50-5.40) Hemoglobin 9.9 g/dL (12.0-15.5) Hematocrit 30.2 % (36.0-47.0) Mean Corpuscular Volume 86 fL (79-100) Mean Corpuscular Hemoglobin 28 pg (25-35) Mean Corpuscular Hemoglobin Concent 33 g/dL (31-37) Red Cell Distribution Width 16.0 % (11.5-14.5) Platelet Count 315 x10^3/uL (140-400) Neutrophils (%) (Auto) 76 % (31-73) Lymphocytes (%) (Auto) 15 % (24-48) Monocytes (%) (Auto) 7 % (0-9) Eosinophils (%) (Auto) 1 % (0-3) Basophils (%) (Auto) 0 % (0-3) Neutrophils # (Auto) 5.5 x10^3uL (1.8-7.7) Lymphocytes # (Auto) 1.1 x10^3/uL (1.0-4.8) Monocytes # (Auto) 0.5 x10^3/uL (0.0-1.1) Eosinophils # (Auto) 0.1 x10^3/uL (0.0-0.7) Basophils # (Auto) 0.0 x10^3/uL (0.0-0.2) Sodium Level 138 mmol/L (136-145) Potassium Level 4.1 mmol/L (3.5-5.1) Chloride Level 97 mmol/L (98-107) Carbon Dioxide Level 43 mmol/L (21-32) Anion Gap (6-14) Blood Urea Nitrogen 18 mg/dL (7-20) Creatinine 0.9 mg/dL (0.6-1.0) Estimated GFR (Cockcroft-Gault) 76.5 Glucose Level 115 mg/dL (70-99) Calcium Level 9.3 mg/dL (8.5-10.1) Medications Current Medications Fentanyl Citrate (Fentanyl 2ml Vial) 50 mcg 1X ONCE IV ; Start 11/10/17 at 14: 00; Stop 11/10/17 at 14:02; Status DC Ondansetron HCl (Zofran) 4 mg 1X ONCE IV ; Start 11/10/17 at 14:00; Stop at 14:02; Status DC Morphine Sulfate (Morphine Sulfate) 8 mg 1X ONCE IM Last administered on at 15:42; Start 11/10/17 at 16:00; Stop 11/10/17 at 16:01; Status DC Furosemide (Lasix) 60 mg BID92 IVP Last administered on 11/12/17 09:14; Start 11/10/17 at 17:00 Aspirin (Ecotrin) 81 mg DAILY PO Last administered on 11/12/17 09:13; Start at 09:00 Atorvastatin Calcium (Lipitor) 20 mg HS PO Last administered on 11/11/17at 21:40 ; Start 11/10/17 at 21:00 Clopidogrel Bisulfate (Plavix) 75 mg DAILY PO Last administered on 11/12/17 09 :14; Start 11/11/17 at 09:00 Ferrous Sulfate (Feosol) 325 mg DAILY PO Last administered on 11/12/17 09:14; Start 11/11/17 at 09:00 Glimepiride (Amaryl) 2 mg DAILY PO Last administered on 11/12/17at 09:14; Start 11/11/17 at 09:00 Insulin Human Lispro (HumaLOG) 20 units TIDWMEALS SQ Last administered on at 17:29; Start 11/10/17 at 18:00 Losartan Potassium (Cozaar) 50 mg DAILY PO Last administered on 11/12/17 09:14 ; Start 11/11/17 at 09:00 Metoprolol Tartrate (Lopressor) 25 mg BID PO Last administered on 11/12/17at 09: 13; Start 11/10/17 at 21:00 Nitroglycerin (Nitrostat) 0.4 mg PRN Q5MIN PRN SL CHEST PAIN; Start 11/10/17 at 17:15 Oxycodone/ Acetaminophen (Percocet 10/325) 1 tab PRN Q4HRS PRN PO PAIN Last administered on 11/12/17at 05:55; Start 11/10/17 at 17:15 Potassium Chloride (Klor-Con) 10 meq BID PO Last administered on 11/12/17at 09: 14; Start 11/10/17 at 21:00 Non-Formulary Medication (Albuterol Sulfate (Albuterol Sulfate Conc Neb Soln)) 5 mg PRN PRN NEB WHEEZING; Start 11/10/17 at 17:15; Stop 11/10/17 at 17:27; Status DC Insulin Glargine (Lantus) 32 units BID SQ Last administered on 11/12/17at 09:23 ; Start 11/10/17 at 21:00 Pantoprazole Sodium (Protonix) 40 mg DAILYAC PO Last administered on 11/12/17at 09:14; Start 11/11/17 at 07:30 Zolpidem Tartrate (Ambien) 5 mg PRN QHS PRN PO INSOMNIA Last administered on at 00:32; Start 11/10/17 at 17:15 Ondansetron HCl (Zofran) 4 mg PRN Q8HRS PRN IV NAUSEA/VOMITING; Start 11/10/17 at 17:15; Stop 11/11/17 at 17:14; Status DC Morphine Sulfate (Morphine Sulfate) 2 mg PRN Q2HR PRN IV PAIN Last administered on 11/11/17at 13:14; Start 11/10/17 at 17:15; Stop 11/11/17 at 17:14 ; Status DC Albuterol Sulfate (Ventolin Neb Soln) 2.5 mg PRN Q6HRS PRN NEB SHORTNESS OF BREATH; Start 11/10/17 at 17:30 Active Scripts Active [Pantoprazole] 40 MG Tablet.dr 40 Mg PO DAILYAC 30 Days Amaryl (Glimepiride) 2 Mg Tablet 2 Mg PO DAILY 30 Days Reported Furosemide 80 Mg Tablet 60 Mg PO DAILY Levemir Flextouch (Insulin Detemir) 100 Unit/1 Ml Insuln.pen 32 Unit SQ BID Novolog (Insulin Aspart) 100 Unit/1 Ml Vial 20 Unit SQ TIDAC Albuterol Sulfate Conc Neb Soln (Albuterol Sulfate) 2.5 Mg/0.5 Ml Vial.neb 5 Mg NEB PRN PRN Percocet 10-325 Mg Tablet (Oxycodone/Acetaminophen) 1 Each Tablet 2 Tab PO PRN Q4HRS PRN Percocet 10-325 Mg Tablet (Oxycodone/Acetaminophen) 1 Each Tablet 1 Tab PO PRN Q4HRS PRN Losartan Potassium 50 Mg Tablet 50 Mg PO DAILY Metoprolol Tartrate 25 Mg Tablet 1 Tab PO BID Ferrous Sulfate 325 Mg Tablet 1 Tab PO DAILY NITROGLYCERIN SubLingual (Nitroglycerin) 0.4 Mg Tab.subl 0.4 Mg SL PRN Q5MIN PRN Atorvastatin Calcium 20 Mg Tablet 20 Mg PO HS Potassium Chloride 10 Meq Capsule.er 10 Meq PO BID Aspir 81 (Aspirin) 81 Mg Tablet. 1 Tab PO DAILY Clopidogrel (Clopidogrel Bisulfate) 75 Mg Tablet 1 Tab PO DAILY Vitals/I & O Vital Sign - Last 24 Hours 11/11/17 11/11/17 11/11/17 11/11/17 11:00 13:14 15:00 19:00 Temp 98.2 99.5 98.6 98.2 99.5 98.6 Pulse 63 60 63 Resp 24 22 16 B/P (MAP) 143/60 (87) 146/42 (76) 136/53 (80) Pulse Ox 92 96 95 O2 Delivery Nasal Cannula Nasal Cannula Nasal Cannula Room Air O2 Flow Rate 3.0 3.0 3.0 11/11/17 11/11/17 11/11/17 11/11/17 20:00 21:41 21:54 22:56 Pulse 63 B/P (MAP) 136/53 Pulse Ox 96 O2 Delivery Nasal Cannula Nasal Cannula BiPAP/CPAP O2 Flow Rate 3.0 3.0 11/11/17 11/12/17 11/12/17 11/12/17 22:57 03:00 03:40 05:55 Temp 98.6 98.0 98.6 98.0 Pulse 63 60 Resp 20 17 B/P (MAP) 136/53 (80) 138/51 (80) Pulse Ox 93 93 O2 Delivery Nasal Cannula Nasal Cannula BiPAP/CPAP Nasal Cannula O2 Flow Rate 3.0 3.0 3.0 11/12/17 11/12/17 11/12/17 07:00 09:13 09:14 Temp 100.0 100.0 Pulse 60 60 60 Resp 16 B/P (MAP) 139/58 (85) 139/58 139/58 Pulse Ox 95 O2 Delivery Nasal Cannula O2 Flow Rate 3.0 Intake and Output 11/11/17 11/11/17 11/12/17 15:00 23:00 07:00 Intake Total 480 ml 240 ml 230 ml Output Total 1800 ml 250 ml Balance -1320 ml -10 ml 230 ml JHON ZAPIEN MD Nov 12, 2017 10:40
[2017-11-12 11:00] VITALS: BP 107/34
[2017-11-12] MEDS: FUROSEMIDE 20 MG TABLET PO SCH (13:06)
[2017-11-12] MEDS: ACETAMINOPHEN 325 MG TABLET. PO PRN (13:29)
[2017-11-12 15:00] VITALS: BP 114/45
--- NOTE | 2017-11-12 15:07 | CONS ---
DATE OF CONSULTATION: ATTENDING PHYSICIAN: Dr. Macias. REASON FOR CONSULTATION: Respiratory failure, hypoxia. HISTORY OF PRESENT ILLNESS: The patient is a 62-year-old morbidly obese patient with a BMI of 51.8. She has history of congestive heart failure. She uses oxygen p.r.n. during the day and also she uses 3 liters at night. The patient was recently discharged from [facility] 4 days ago. She was brought into the hospital with increasing shortness of breath for the last 3 days. She said she has increasing weight gain and also has some ankle edema. She denies any significant cough, no fever, no chills, no chest pains, no headaches, no nausea, vomiting, no diarrhea. She does have increased leg edema. No focal weakness. I have reviewed the patient's chest x-ray and is consistent with perihilar edema. PAST MEDICAL HISTORY: Significant for CAD, CHF, hypertension, AR, hyperlipidemia. She is a lifetime nonsmoker. History of peripheral neuropathy, osteoarthritis, chronic renal insufficiency. PAST SURGICAL HISTORY: Pacemaker, appendectomy, cholecystectomy, CABG, hernia repair, total knee and hysterectomy. FAMILY HISTORY: Noncontributory to lungs. SOCIAL HISTORY: Does not smoke cigarettes or drink alcohol. ALLERGIES: None. CURRENT MEDICATIONS: Reviewed as listed in the MRAD including Lasix that she received in the ER. REVIEW OF SYSTEMS: 12-point system review was obtained. Pertinent positives discussed in my history of present illness, otherwise noncontributory. All systems that were negative were reviewed as well. PHYSICAL EXAMINATION: VITAL SIGNS: Reviewed. She had a T-max of 100. Blood pressure 107/34, pulse ox 97% on 3 liters. HEENT: Sclerae nonicteric. NECK: Supple. LUNGS: Diminished breath sounds. CARDIOVASCULAR: Regular rate. ABDOMEN: Soft, obese. EXTREMITIES: With 2+ pitting edema. LABORATORY DATA: Reviewed. White cell count 7.2, hemoglobin 9.9 and platelets are 315. BUN is 18, creatinine 0.9. ProBNP is 2970. IMPRESSION: 1. Acute hypercapnic and hypoxic respiratory failure secondary to likely congestive heart failure. This is a patient who presents with increasing dyspnea and lower extremity edema along with the weight gain and chest x-ray more favoring congestive heart failure. The patient's proBNP was elevated as well. 2. No significant history of tobacco use. 3. Morbid obesity and history of obstructive sleep apnea, but due to noncompliance with CPAP, it was taken away by her insurance company. 4. Fever, source not so obvious. Lacks symptoms of respiratory tract infection. Would recommend checking urine as well as a followup chest x-ray post-diuresis. Would also recommend adding empiric antibiotic. RECOMMENDATIONS: 1. Follow chest x-ray post-diuresis. 2. Wean her off oxygen once clinically improved.. Normally, she uses oxygen only on a p.r.n. basis. Currently, on 3 liters. 3. Continue IV diuresis. 4. Add empiric antibiotic. 5. Follow urine cultures and blood cultures. 6. Monitor fever closely. 7. If the chest x-ray does not improve, then we will order a noncontrast CT chest. 8. Echo 9. ABG and assess need for BIPAP. 8. Discussed with RN. We will follow along with you. XENIA MARAVILLA MD DR: CAS/amrik JOB#: [id number] / [id number]
--- NOTE | 2017-11-12 15:37 | PDOC2 ---
GI CONSULT HPI: HPI: 62 y/o female admitted w/ SOA. GI evals in the past for nausea, poor appetite, and atypical CP (earlier this month). Known ROXANE, outpt EGD and colonoscopy recommended. We have also recommended PPI in place of H2 sybil - unclear what she takes at home. Denies reflux/heartburn, dysphagia, n/v, abd pain, diarrhea, constipation, hematochezia, and melena. Appetite is "somewhat" okay. Had some CP w/ SOA - both better. Takes ASA and Plavix, no NSAIDs. EGD in 2007 w/ reflux esophagitis and negative CLOtest. No previous colonoscopy. S/p cholecystectomy. No liver or pancreas history. Some question on gastroparesis in the past, no documented GES. PMH: PMH: ASHD with prior stents/emergent CABG, HTN, VIOLETTA, DM, depression, neuropathy Left TKR, umbilical HR with mesh (redo x 1), reduction mammoplasties, appendectomy, PPMI FH: Family History: CAD Social History: Smoke: No ALCOHOL: none Drugs: None ROS: GEN: Denies fevers, chills, sweats HEENT: Denies blurred vision, sore throat CV: +chest pain RESP: +SOA GI: Per HPI : Denies hematuria, dysuria ENDO: Denies weight changes NEURO: Denies confusion, dizziness MSK: Denies weakness, joint pain/swelling SKIN: Denies jaundice, pruritus Vitals: Vitals: Vital Signs Date Time Temp Pulse Resp B/P (MAP) Pulse Ox O2 Delivery O2 Flow Rate FiO2 11/12/17 11:00 99.9 59 16 107/34 (58) 97 Nasal Cannula 3.0 99.9 Labs: Labs: Laboratory Tests Test 11/11/17 16:40 11/11/17 20:37 11/12/17 07:20 11/12/17 08:15 Glucose (Fingerstick) 117 mg/dL (70-99) 206 mg/dL (70-99) 88 mg/dL (70-99) White Blood Count 7.2 x10^3/uL (4.0-11.0) Red Blood Count 3.51 x10^6/uL (3.50-5.40) Hemoglobin 9.9 g/dL (12.0-15.5) Hematocrit 30.2 % (36.0-47.0) Mean Corpuscular Volume 86 fL (79-100) Mean Corpuscular Hemoglobin 28 pg (25-35) Mean Corpuscular Hemoglobin Concent 33 g/dL (31-37) Red Cell Distribution Width 16.0 % (11.5-14.5) Platelet Count 315 x10^3/uL (140-400) Neutrophils (%) (Auto) 76 % (31-73) Lymphocytes (%) (Auto) 15 % (24-48) Monocytes (%) (Auto) 7 % (0-9) Eosinophils (%) (Auto) 1 % (0-3) Basophils (%) (Auto) 0 % (0-3) Neutrophils # (Auto) 5.5 x10^3uL (1.8-7.7) Lymphocytes # (Auto) 1.1 x10^3/uL (1.0-4.8) Monocytes # (Auto) 0.5 x10^3/uL (0.0-1.1) Eosinophils # (Auto) 0.1 x10^3/uL (0.0-0.7) Basophils # (Auto) 0.0 x10^3/uL (0.0-0.2) Reticulocyte Count (auto) 3.1 % (0.5-2.5) Sodium Level 138 mmol/L (136-145) Potassium Level 4.1 mmol/L (3.5-5.1) Chloride Level 97 mmol/L (98-107) Carbon Dioxide Level 43 mmol/L (21-32) Anion Gap (6-14) Blood Urea Nitrogen 18 mg/dL (7-20) Creatinine 0.9 mg/dL (0.6-1.0) Estimated GFR (Cockcroft-Gault) 76.5 Glucose Level 115 mg/dL (70-99) Calcium Level 9.3 mg/dL (8.5-10.1) Iron Level 38 ug/dL (50-170) Total Iron Binding Capacity 372 ug/dL (250-450) Iron Saturation 10 % (15-34) Thyroid Stimulating Hormone (TSH) 0.701 uIU/mL (0.358-3.74) Test 11/12/17 10:59 Glucose (Fingerstick) 146 mg/dL (70-99) Allergies: Coded Allergies: No Known Drug Allergies (Unverified , 08/01/13) Medications: Current Medications Medications (Trade) Dose Ordered Sig/Susan Route PRN Reason Start Time Stop Time Status Last Admin Dose Admin Furosemide (Lasix) 60 mg [id number] PO 11/12/17 14:00 11/12/17 13:06 Acetaminophen (Tylenol) 650 mg PRN Q6HRS PRN PO PAIN 11/12/17 13:30 11/12/17 13:29 Imaging: Imaging: CXR IMPRESSION: Cardiomegaly with bilateral perihilar parenchymal airspace opacities and small left pleural effusion likely pulmonary edema. PE: GEN: NAD HEENT: Atraumatic, PERRL LUNGS: diminished, NC HEART: RRR ABD: NABS, ventral hernia, soft, non-tender EXTREMITY: +pitting edema SKIN: No rashes, no jaundice NEURO/PSYCH: A & O 3 A/P: A/P: Acute resp failure - h/o CHF and VIOLETTA/obesity Fever Known ROXANE - Hgb a tad below baseline, no obvious bleeding, on ASA and Plavix H/o reflux - on PPI here, EGD in 2007 ?decreased appetite CRC screen - none S/p cholecystectomy -- On PPI + iron here. Outpt EGD and colonoscopy recommended in the past. Will review any new recommendations w/ Dr. Kolb. SARAH HERNANDEZ Nov 12, 2017 15:37
[2017-11-12 15:45] LABS: BASE EXCESS COOX 18 mmol/L (-3-3); HCO3 COOX 48 mmol/L (21-28); METHEMOGLOBIN 0.2 % (0.0-1.9); OXYHEMOGLOBIN 96.4 %; PO2 COOX 111 mmHg (65-108); SAT O2 COOX 97 % (92-99)
[2017-11-12 15:47] LABS: PCO2 COOX 94 mmHg (35-46)
--- NOTE | 2017-11-12 17:56 | PDOC ---
PROGRESS NOTES Subjective Subjective Patient complains of numbness of hands and feet and feeling very weak. Her breathing is better. No significant chest pains today. Objective Objective Vital Signs Date Time Temp Pulse Resp B/P (MAP) Pulse Ox O2 Delivery O2 Flow Rate FiO2 11/12/17 16:28 96 BiPAP/CPAP 11/12/17 15:00 99.0 59 16 114/45 (68) 3.0 99.0 Intake and Output 11/12/17 07:00 Intake Total 950 ml Output Total 2050 ml Balance -1100 ml Intake Oral 950 ml Output Urine Total 2050 ml # Voids 2 Physical Exam Physical Exam She is moving air better today no wheezing, no Rales. No changes in heart sounds. Less edema of the lower extremities. Assessment Assessment This patient's CHF appears to be improving. Some of her discomforts may be related to her deconditioning as well as her neuropathy. Will change her Lasix to 80 mg by mouth twice a day and she may be able to go home in a.m. Comment Review of Relevant I have reviewed the following items nolan (where applicable) has been applied. Labs Laboratory Tests Test 11/10/17 20:35 11/10/17 21:37 11/11/17 00:12 11/11/17 07:40 Glucose (Fingerstick) 53 mg/dL (70-99) 137 mg/dL (70-99) 92 mg/dL (70-99) 117 mg/dL (70-99) Test 11/11/17 11:11 11/11/17 16:40 11/11/17 20:37 11/12/17 07:20 Glucose (Fingerstick) 99 mg/dL (70-99) 117 mg/dL (70-99) 206 mg/dL (70-99) 88 mg/dL (70-99) Test 11/12/17 08:15 11/12/17 10:59 11/12/17 13:11 11/12/17 16:11 White Blood Count 7.2 x10^3/uL (4.0-11.0) Red Blood Count 3.51 x10^6/uL (3.50-5.40) Hemoglobin 9.9 g/dL (12.0-15.5) Hematocrit 30.2 % (36.0-47.0) Mean Corpuscular Volume 86 fL (79-100) Mean Corpuscular Hemoglobin 28 pg (25-35) Mean Corpuscular Hemoglobin Concent 33 g/dL (31-37) Red Cell Distribution Width 16.0 % (11.5-14.5) Platelet Count 315 x10^3/uL (140-400) Neutrophils (%) (Auto) 76 % (31-73) Lymphocytes (%) (Auto) 15 % (24-48) Monocytes (%) (Auto) 7 % (0-9) Eosinophils (%) (Auto) 1 % (0-3) Basophils (%) (Auto) 0 % (0-3) Neutrophils # (Auto) 5.5 x10^3uL (1.8-7.7) Lymphocytes # (Auto) 1.1 x10^3/uL (1.0-4.8) Monocytes # (Auto) 0.5 x10^3/uL (0.0-1.1) Eosinophils # (Auto) 0.1 x10^3/uL (0.0-0.7) Basophils # (Auto) 0.0 x10^3/uL (0.0-0.2) Reticulocyte Count (auto) 3.1 % (0.5-2.5) Sodium Level 138 mmol/L (136-145) Potassium Level 4.1 mmol/L (3.5-5.1) Chloride Level 97 mmol/L (98-107) Carbon Dioxide Level 43 mmol/L (21-32) Anion Gap (6-14) Blood Urea Nitrogen 18 mg/dL (7-20) Creatinine 0.9 mg/dL (0.6-1.0) Estimated GFR (Cockcroft-Gault) 76.5 Glucose Level 115 mg/dL (70-99) Calcium Level 9.3 mg/dL (8.5-10.1) Iron Level 38 ug/dL (50-170) Total Iron Binding Capacity 372 ug/dL (250-450) Iron Saturation 10 % (15-34) Thyroid Stimulating Hormone (TSH) 0.701 uIU/mL (0.358-3.74) Glucose (Fingerstick) 146 mg/dL (70-99) 52 mg/dL (70-99) O2 Saturation 97 % (92-99) Arterial Blood pH 7.32 (7.35-7.45) Arterial Blood pCO2 at Patient Temp 94 mmHg (35-46) Arterial Blood pO2 at Patient Temp 111 mmHg (65-108) Arterial Blood HCO3 48 mmol/L (21-28) Arterial Blood Base Excess 18 mmol/L (-3-3) Oxyhemoglobin 96.4 % Methemoglobin 0.2 % (0.0-1.9) Carbon Monoxide, Quantitative 0.8 % (0.0-1.9) FiO2 32 Test 11/12/17 16:37 Glucose (Fingerstick) 90 mg/dL (70-99) Laboratory Tests Test 11/11/17 20:37 11/12/17 07:20 11/12/17 08:15 11/12/17 10:59 Glucose (Fingerstick) 206 mg/dL (70-99) 88 mg/dL (70-99) 146 mg/dL (70-99) White Blood Count 7.2 x10^3/uL (4.0-11.0) Red Blood Count 3.51 x10^6/uL (3.50-5.40) Hemoglobin 9.9 g/dL (12.0-15.5) Hematocrit 30.2 % (36.0-47.0) Mean Corpuscular Volume 86 fL (79-100) Mean Corpuscular Hemoglobin 28 pg (25-35) Mean Corpuscular Hemoglobin Concent 33 g/dL (31-37) Red Cell Distribution Width 16.0 % (11.5-14.5) Platelet Count 315 x10^3/uL (140-400) Neutrophils (%) (Auto) 76 % (31-73) Lymphocytes (%) (Auto) 15 % (24-48) Monocytes (%) (Auto) 7 % (0-9) Eosinophils (%) (Auto) 1 % (0-3) Basophils (%) (Auto) 0 % (0-3) Neutrophils # (Auto) 5.5 x10^3uL (1.8-7.7) Lymphocytes # (Auto) 1.1 x10^3/uL (1.0-4.8) Monocytes # (Auto) 0.5 x10^3/uL (0.0-1.1) Eosinophils # (Auto) 0.1 x10^3/uL (0.0-0.7) Basophils # (Auto) 0.0 x10^3/uL (0.0-0.2) Reticulocyte Count (auto) 3.1 % (0.5-2.5) Sodium Level 138 mmol/L (136-145) Potassium Level 4.1 mmol/L (3.5-5.1) Chloride Level 97 mmol/L (98-107) Carbon Dioxide Level 43 mmol/L (21-32) Anion Gap (6-14) Blood Urea Nitrogen 18 mg/dL (7-20) Creatinine 0.9 mg/dL (0.6-1.0) Estimated GFR (Cockcroft-Gault) 76.5 Glucose Level 115 mg/dL (70-99) Calcium Level 9.3 mg/dL (8.5-10.1) Iron Level 38 ug/dL (50-170) Total Iron Binding Capacity 372 ug/dL (250-450) Iron Saturation 10 % (15-34) Thyroid Stimulating Hormone (TSH) 0.701 uIU/mL (0.358-3.74) Test 11/12/17 13:11 11/12/17 16:11 11/12/17 16:37 O2 Saturation 97 % (92-99) Arterial Blood pH 7.32 (7.35-7.45) Arterial Blood pCO2 at Patient Temp 94 mmHg (35-46) Arterial Blood pO2 at Patient Temp 111 mmHg (65-108) Arterial Blood HCO3 48 mmol/L (21-28) Arterial Blood Base Excess 18 mmol/L (-3-3) Oxyhemoglobin 96.4 % Methemoglobin 0.2 % (0.0-1.9) Carbon Monoxide, Quantitative 0.8 % (0.0-1.9) FiO2 32 Glucose (Fingerstick) 52 mg/dL (70-99) 90 mg/dL (70-99) Medications Current Medications Fentanyl Citrate (Fentanyl 2ml Vial) 50 mcg 1X ONCE IV ; Start 11/10/17 at 14: 00; Stop 11/10/17 at 14:02; Status DC Ondansetron HCl (Zofran) 4 mg 1X ONCE IV ; Start 11/10/17 at 14:00; Stop at 14:02; Status DC Morphine Sulfate (Morphine Sulfate) 8 mg 1X ONCE IM Last administered on at 15:42; Start 11/10/17 at 16:00; Stop 11/10/17 at 16:01; Status DC Furosemide (Lasix) 60 mg BID92 IVP Last administered on 11/12/17 09:14; Start 11/10/17 at 17:00; Stop 11/12/17 at 12:58; Status DC Aspirin (Ecotrin) 81 mg DAILY PO Last administered on 11/12/17at 09:13; Start at 09:00 Atorvastatin Calcium (Lipitor) 20 mg HS PO Last administered on 11/11/17at 21:40 ; Start 11/10/17 at 21:00 Clopidogrel Bisulfate (Plavix) 75 mg DAILY PO Last administered on 11/12/17 09 :14; Start 11/11/17 at 09:00 Ferrous Sulfate (Feosol) 325 mg DAILY PO Last administered on 11/12/17 09:14; Start 11/11/17 at 09:00 Glimepiride (Amaryl) 2 mg DAILY PO Last administered on 11/12/17 09:14; Start 11/11/17 at 09:00 Insulin Human Lispro (HumaLOG) 20 units TIDWMEALS SQ Last administered on 13:10; Start 11/10/17 at 18:00 Losartan Potassium (Cozaar) 50 mg DAILY PO Last administered on 11/12/17at 09:14 ; Start 11/11/17 at 09:00 Metoprolol Tartrate (Lopressor) 25 mg BID PO Last administered on 11/12/17at 09: 13; Start 11/10/17 at 21:00 Nitroglycerin (Nitrostat) 0.4 mg PRN Q5MIN PRN SL CHEST PAIN; Start 11/10/17 at 17:15 Oxycodone/ Acetaminophen (Percocet 10/325) 1 tab PRN Q4HRS PRN PO PAIN Last administered on 11/12/17at 05:55; Start 11/10/17 at 17:15; Stop 11/12/17 at 13:11 ; Status DC Potassium Chloride (Klor-Con) 10 meq BID PO Last administered on 11/12/17at 09: 14; Start 11/10/17 at 21:00 Non-Formulary Medication (Albuterol Sulfate (Albuterol Sulfate Conc Neb Soln)) 5 mg PRN PRN NEB WHEEZING; Start 11/10/17 at 17:15; Stop 11/10/17 at 17:27; Status DC Insulin Glargine (Lantus) 32 units BID SQ Last administered on 11/12/17at 09:23 ; Start 11/10/17 at 21:00 Pantoprazole Sodium (Protonix) 40 mg DAILYAC PO Last administered on 11/12/17at 09:14; Start 11/11/17 at 07:30 Zolpidem Tartrate (Ambien) 5 mg PRN QHS PRN PO INSOMNIA Last administered on at 00:32; Start 11/10/17 at 17:15 Ondansetron HCl (Zofran) 4 mg PRN Q8HRS PRN IV NAUSEA/VOMITING; Start 11/10/17 at 17:15; Stop 11/11/17 at 17:14; Status DC Morphine Sulfate (Morphine Sulfate) 2 mg PRN Q2HR PRN IV PAIN Last administered on 11/11/17at 13:14; Start 11/10/17 at 17:15; Stop 11/11/17 at 17:14 ; Status DC Albuterol Sulfate (Ventolin Neb Soln) 2.5 mg PRN Q6HRS PRN NEB SHORTNESS OF BREATH; Start 11/10/17 at 17:30 Furosemide (Lasix) 60 mg BID92 PO Last administered on 11/12/17at 13:06; Start 11/12/17 at 14:00 Acetaminophen (Tylenol) 650 mg PRN Q6HRS PRN PO PAIN Last administered on at 13:29; Start 11/12/17 at 13:30 Levofloxacin/ Dextrose 100 ml @ 100 mls/hr Q24H IV Last administered on at 15:43; Start 11/12/17 at 15:00 Lactobacillus Rhamnosus (Culturelle) 1 cap BID PO ; Start 11/12/17 at 21:00 Active Scripts Active [Pantoprazole] 40 MG Tablet.dr 40 Mg PO DAILYAC 30 Days Amaryl (Glimepiride) 2 Mg Tablet 2 Mg PO DAILY 30 Days Reported Furosemide 80 Mg Tablet 60 Mg PO DAILY Levemir Flextouch (Insulin Detemir) 100 Unit/1 Ml Insuln.pen 32 Unit SQ BID Novolog (Insulin Aspart) 100 Unit/1 Ml Vial 20 Unit SQ TIDAC Albuterol Sulfate Conc Neb Soln (Albuterol Sulfate) 2.5 Mg/0.5 Ml Vial.neb 5 Mg NEB PRN PRN Percocet 10-325 Mg Tablet (Oxycodone/Acetaminophen) 1 Each Tablet 2 Tab PO PRN Q4HRS PRN Percocet 10-325 Mg Tablet (Oxycodone/Acetaminophen) 1 Each Tablet 1 Tab PO PRN Q4HRS PRN Losartan Potassium 50 Mg Tablet 50 Mg PO DAILY Metoprolol Tartrate 25 Mg Tablet 1 Tab PO BID Ferrous Sulfate 325 Mg Tablet 1 Tab PO DAILY NITROGLYCERIN SubLingual (Nitroglycerin) 0.4 Mg Tab.subl 0.4 Mg SL PRN Q5MIN PRN Atorvastatin Calcium 20 Mg Tablet 20 Mg PO HS Potassium Chloride 10 Meq Capsule.er 10 Meq PO BID Aspir 81 (Aspirin) 81 Mg Tablet. 1 Tab PO DAILY Clopidogrel (Clopidogrel Bisulfate) 75 Mg Tablet 1 Tab PO DAILY Vitals/I & O Vital Sign - Last 24 Hours 11/11/17 11/11/17 11/11/17 11/11/17 19:00 20:00 21:41 21:54 Temp 98.6 98.6 Pulse 63 63 Resp 16 B/P (MAP) 136/53 (80) 136/53 Pulse Ox 95 O2 Delivery Room Air Nasal Cannula Nasal Cannula O2 Flow Rate 3.0 3.0 11/11/17 11/11/17 11/12/17 11/12/17 22:56 22:57 03:00 03:40 Temp 98.6 98.0 98.6 98.0 Pulse 63 60 Resp 20 17 B/P (MAP) 136/53 (80) 138/51 (80) Pulse Ox 96 93 93 O2 Delivery BiPAP/CPAP Nasal Cannula Nasal Cannula BiPAP/CPAP O2 Flow Rate 3.0 3.0 11/12/17 11/12/17 11/12/17 11/12/17 05:55 07:00 08:00 09:13 Temp 100.0 100.0 Pulse 60 60 Resp 16 B/P (MAP) 139/58 (85) 139/58 Pulse Ox 95 O2 Delivery Nasal Cannula Nasal Cannula Nasal Cannula O2 Flow Rate 3.0 3.0 3.0 11/12/17 11/12/17 11/12/17 11/12/17 09:14 11:00 15:00 16:28 Temp 99.9 99.0 99.9 99.0 Pulse 60 59 59 Resp 16 16 B/P (MAP) 139/58 107/34 (58) 114/45 (68) Pulse Ox 97 98 96 O2 Delivery Nasal Cannula Nasal Cannula BiPAP/CPAP O2 Flow Rate 3.0 3.0 Intake and Output 11/11/17 11/11/17 11/12/17 15:00 23:00 07:00 Intake Total 480 ml 240 ml 230 ml Output Total 1800 ml 250 ml Balance -1320 ml -10 ml 230 ml LIZBET LINDSAY MD Nov 12, 2017 17:56
[2017-11-12 19:00] VITALS: BP 125/46
[2017-11-12 21:29] LABS: BASE EXCESS ABG 18 mmol/L (-3-3); HCO3 ABG 46 mmol/L (21-28); PO2 ABG 58 mmHg (65-108); SAT O2 ABG 90 % (92-99)
[2017-11-12 21:35] LABS: PCO2 ABG 79 mmHg (35-46)
[2017-11-12] MEDS: LACTOBACILLUS RHAMNOSUS GG 1 CAPSULE. PO SCH (21:53)
[2017-11-12] MEDS: ZOLPIDEM 5 MG TABLET. PO PRN (21:53)
[2017-11-12] MEDS: ATORVASTATIN CALCIUM 20 MG TABLET PO SCH (21:53)
[2017-11-12 23:00] VITALS: BP 136/53
[2017-11-13 02:46] VITALS: BP 167/67
[2017-11-13 07:00] VITALS: BP 102/45
[2017-11-13] MEDS: INSULIN LISPRO 300 UNITS/3 ML INSULN.PEN. SQ SCH ×3 (08:00→17:00)
[2017-11-13] MEDS: PANTOPRAZOLE 40 MG TABLET.DR. PO SCH (08:08)
[2017-11-13] MEDS: FERROUS SULFATE 325 MG TABLET. PO SCH (08:08)
[2017-11-13] MEDS: POTASSIUM CHLORIDE 10 MEQ TABLET.ER. PO SCH ×2 (08:08→22:26)
[2017-11-13 08:09] LABS: BASE EXCESS ABG 16 mmol/L (-3-3); HCO3 ABG 44 mmol/L (21-28); PO2 ABG 101 mmHg (65-108); SAT O2 ABG 97 % (92-99)
[2017-11-13] MEDS: ASPIRIN ENTERIC COATED 81 MG TABLET.DR. PO SCH (08:09)
[2017-11-13] MEDS: GLIMEPIRIDE 2 MG TABLET. PO SCH (08:09)
[2017-11-13] MEDS: LACTOBACILLUS RHAMNOSUS GG 1 CAPSULE. PO SCH ×2 (08:09→22:25)
[2017-11-13 08:11] LABS: PCO2 ABG 81 mmHg (35-46)
[2017-11-13 08:12] LABS: FIO2 ABG 32
[2017-11-13] MEDS: METOPROLOL TART IMMED RELEASE 25 MG TABLET. PO SCH ×2 (08:30→22:27)
[2017-11-13] MEDS: CLOPIDOGREL BISULFATE 75 MG TABLET PO SCH (08:31)
--- NOTE | 2017-11-13 08:35 | RAD ---
EXAM: PORTABLE CHEST 1V DATE: 11/13/2017 7:00 AM INDICATION: CHF COMPARISON: No Prior FINDINGS: Cardiac generator pack obscures a portion left chest with leads in stable position Cardiomediastinal silhouette is grossly stable accounting for differences in positioning and technique. Bilateral parenchymal opacities are grossly stable to borderline improved accounting for differences in projection and technique Small left pleural effusion. No pneumothorax. IMPRESSION: Bilateral airspace opacities with cardiomegaly and pleural effusions, pulmonary edema, mildly improved. Electronically signed by: Ej Nevarez MD (11/13/2017 8:32 AM) [id number]
[2017-11-13] MEDS: INSULIN GLARGINE 300 UNITS/3 ML INSULN.PEN. SQ SCH ×2 (09:00→22:39)
--- NOTE | 2017-11-13 09:11 | PDOC ---
Subjective: Subjective: Breathing better, ate breakfast, stooled yesterday, denies chest and abd pain. Objective: Objective: Tmax 99.9 Vital Signs: Vital Signs Date Time Temp Pulse Resp B/P (MAP) Pulse Ox O2 Delivery O2 Flow Rate FiO2 11/13/17 08:30 60 102/45 11/13/17 07:00 98.6 16 98 Nasal Cannula 2.0 98.6 Labs: Laboratory Tests Test 11/12/17 10:59 11/12/17 13:11 11/12/17 14:27 11/12/17 16:11 Glucose (Fingerstick) 146 mg/dL 52 mg/dL O2 Saturation 97 % 90 % Arterial Blood pH 7.32 7.39 Arterial Blood pCO2 at Patient Temp 94 mmHg 79 mmHg Arterial Blood pO2 at Patient Temp 111 mmHg 58 mmHg Arterial Blood HCO3 48 mmol/L 46 mmol/L Arterial Blood Base Excess 18 mmol/L 18 mmol/L Oxyhemoglobin 96.4 % Methemoglobin 0.2 % Carbon Monoxide, Quantitative 0.8 % FiO2 32 Test 11/12/17 16:37 11/12/17 20:20 11/13/17 07:32 11/13/17 08:00 Glucose (Fingerstick) 90 mg/dL 113 mg/dL 100 mg/dL O2 Saturation 97 % Arterial Blood pH 7.36 Arterial Blood pCO2 at Patient Temp 81 mmHg Arterial Blood pO2 at Patient Temp 101 mmHg Arterial Blood HCO3 44 mmol/L Arterial Blood Base Excess 16 mmol/L FiO2 32 Imaging: CXR 11/13/17 IMPRESSION: Bilateral airspace opacities with cardiomegaly and pleural effusions, pulmonary edema, mildly improved. PE: GEN: NAD LUNGS: diminished, NC HEART: RRR ABD: S/ND/NT NEURO/PSYCH: A & O 3 OTHER: breakfast tray empty A/P: Acute resp failure/CHF Fever - better, cultures pending ROXANE - h/o GERD on PPI, no previous colonoscopy -- Continue same per GI - could increase iron to BID. Outpt 'scopes. SARAH HERNANDEZ Nov 13, 2017 09:11
[2017-11-13] MEDS ORDERED: PERFLUTREN PROTEIN-A MICROSPHR 0.22 MG/ML 3 ML VIAL. IV ONE (10:39)
--- NOTE | 2017-11-13 10:42 | PDOC ---
PULMONARY PROGRESS NOTES Subjective improved ABG on BIPAP all night on canula this am Vitals Vital Signs Date Time Temp Pulse Resp B/P (MAP) Pulse Ox O2 Delivery O2 Flow Rate FiO2 11/13/17 08:30 60 102/45 11/13/17 07:00 98.6 16 98 Nasal Cannula 2.0 98.6 General: Alert, No acute distress Lungs: Clear Cardiovascular: S1, S2 Abdomen: Soft Extremities: Other (2+edema) Labs Laboratory Tests Test 11/11/17 11:11 11/11/17 16:40 11/11/17 20:37 11/12/17 07:20 Glucose (Fingerstick) 99 mg/dL (70-99) 117 mg/dL (70-99) 206 mg/dL (70-99) 88 mg/dL (70-99) Test 11/12/17 08:15 11/12/17 10:59 11/12/17 13:11 11/12/17 14:27 White Blood Count 7.2 x10^3/uL (4.0-11.0) Red Blood Count 3.51 x10^6/uL (3.50-5.40) Hemoglobin 9.9 g/dL (12.0-15.5) Hematocrit 30.2 % (36.0-47.0) Mean Corpuscular Volume 86 fL (79-100) Mean Corpuscular Hemoglobin 28 pg (25-35) Mean Corpuscular Hemoglobin Concent 33 g/dL (31-37) Red Cell Distribution Width 16.0 % (11.5-14.5) Platelet Count 315 x10^3/uL (140-400) Neutrophils (%) (Auto) 76 % (31-73) Lymphocytes (%) (Auto) 15 % (24-48) Monocytes (%) (Auto) 7 % (0-9) Eosinophils (%) (Auto) 1 % (0-3) Basophils (%) (Auto) 0 % (0-3) Neutrophils # (Auto) 5.5 x10^3uL (1.8-7.7) Lymphocytes # (Auto) 1.1 x10^3/uL (1.0-4.8) Monocytes # (Auto) 0.5 x10^3/uL (0.0-1.1) Eosinophils # (Auto) 0.1 x10^3/uL (0.0-0.7) Basophils # (Auto) 0.0 x10^3/uL (0.0-0.2) Reticulocyte Count (auto) 3.1 % (0.5-2.5) Sodium Level 138 mmol/L (136-145) Potassium Level 4.1 mmol/L (3.5-5.1) Chloride Level 97 mmol/L (98-107) Carbon Dioxide Level 43 mmol/L (21-32) Anion Gap (6-14) Blood Urea Nitrogen 18 mg/dL (7-20) Creatinine 0.9 mg/dL (0.6-1.0) Estimated GFR (Cockcroft-Gault) 76.5 Glucose Level 115 mg/dL (70-99) Calcium Level 9.3 mg/dL (8.5-10.1) Iron Level 38 ug/dL (50-170) Total Iron Binding Capacity 372 ug/dL (250-450) Iron Saturation 10 % (15-34) Thyroid Stimulating Hormone (TSH) 0.701 uIU/mL (0.358-3.74) Glucose (Fingerstick) 146 mg/dL (70-99) O2 Saturation 97 % (92-99) 90 % (92-99) Arterial Blood pH 7.32 (7.35-7.45) 7.39 (7.35-7.45) Arterial Blood pCO2 at Patient Temp 94 mmHg (35-46) 79 mmHg (35-46) Arterial Blood pO2 at Patient Temp 111 mmHg (65-108) 58 mmHg (65-108) Arterial Blood HCO3 48 mmol/L (21-28) 46 mmol/L (21-28) Arterial Blood Base Excess 18 mmol/L (-3-3) 18 mmol/L (-3-3) Oxyhemoglobin 96.4 % Methemoglobin 0.2 % (0.0-1.9) Carbon Monoxide, Quantitative 0.8 % (0.0-1.9) FiO2 32 Test 11/12/17 16:11 11/12/17 16:37 11/12/17 20:20 11/13/17 07:32 Glucose (Fingerstick) 52 mg/dL (70-99) 90 mg/dL (70-99) 113 mg/dL (70-99) 100 mg/dL (70-99) Test 11/13/17 08:00 O2 Saturation 97 % (92-99) Arterial Blood pH 7.36 (7.35-7.45) Arterial Blood pCO2 at Patient Temp 81 mmHg (35-46) Arterial Blood pO2 at Patient Temp 101 mmHg (65-108) Arterial Blood HCO3 44 mmol/L (21-28) Arterial Blood Base Excess 16 mmol/L (-3-3) FiO2 32 Laboratory Tests Test 11/12/17 10:59 11/12/17 13:11 11/12/17 14:27 11/12/17 16:11 Glucose (Fingerstick) 146 mg/dL (70-99) 52 mg/dL (70-99) O2 Saturation 97 % (92-99) 90 % (92-99) Arterial Blood pH 7.32 (7.35-7.45) 7.39 (7.35-7.45) Arterial Blood pCO2 at Patient Temp 94 mmHg (35-46) 79 mmHg (35-46) Arterial Blood pO2 at Patient Temp 111 mmHg (65-108) 58 mmHg (65-108) Arterial Blood HCO3 48 mmol/L (21-28) 46 mmol/L (21-28) Arterial Blood Base Excess 18 mmol/L (-3-3) 18 mmol/L (-3-3) Oxyhemoglobin 96.4 % Methemoglobin 0.2 % (0.0-1.9) Carbon Monoxide, Quantitative 0.8 % (0.0-1.9) FiO2 32 Test 11/12/17 16:37 11/12/17 20:20 11/13/17 07:32 11/13/17 08:00 Glucose (Fingerstick) 90 mg/dL (70-99) 113 mg/dL (70-99) 100 mg/dL (70-99) O2 Saturation 97 % (92-99) Arterial Blood pH 7.36 (7.35-7.45) Arterial Blood pCO2 at Patient Temp 81 mmHg (35-46) Arterial Blood pO2 at Patient Temp 101 mmHg (65-108) Arterial Blood HCO3 44 mmol/L (21-28) Arterial Blood Base Excess 16 mmol/L (-3-3) FiO2 32 Medications Active Scripts Medications Dose Route/Sig Max Daily Dose Days Date Category [Pantoprazole] 40 MG Tablet.dr 40 Mg PO DAILYAC 30 10/29/17 Rx Furosemide 80 Mg Tablet 60 Mg PO DAILY 10/09/17 Reported Levemir Flextouch (Insulin Detemir) 100 Unit/1 Ml Insuln.pen 32 Unit SQ BID 10/07/17 Reported Novolog (Insulin Aspart) 100 Unit/1 Ml Vial 20 Unit SQ TIDAC 10/07/17 Reported Albuterol Sulfate Conc Neb Soln (Albuterol Sulfate) 2.5 Mg/0.5 Ml Vial.neb 5 Mg NEB PRN PRN 10/07/17 Reported Percocet 10-325 Mg Tablet (Oxycodone/Acetaminophen) 1 Each Tablet 2 Tab PO PRN Q4HRS PRN 10/07/17 Reported Percocet 10-325 Mg Tablet (Oxycodone/Acetaminophen) 1 Each Tablet 1 Tab PO PRN Q4HRS PRN 10/07/17 Reported Losartan Potassium 50 Mg Tablet 50 Mg PO DAILY 10/07/17 Reported Amaryl (Glimepiride) 2 Mg Tablet 2 Mg PO DAILY 30 07/04/17 Rx Metoprolol Tartrate 25 Mg Tablet 1 Tab PO BID 07/03/17 Reported Ferrous Sulfate 325 Mg Tablet 1 Tab PO DAILY 11/01/16 Reported NITROGLYCERIN SubLingual (Nitroglycerin) 0.4 Mg Tab.subl 0.4 Mg SL PRN Q5MIN PRN 11/01/16 Reported Atorvastatin Calcium 20 Mg Tablet 20 Mg PO HS 10/28/16 Reported Potassium Chloride 10 Meq Capsule.er 10 Meq PO BID 10/28/16 Reported Aspir 81 (Aspirin) 81 Mg Tablet.dr 1 Tab PO DAILY 10/28/16 Reported Clopidogrel (Clopidogrel Bisulfate) 75 Mg Tablet 1 Tab PO DAILY 10/28/16 Reported Impression . 1. Acute hypercapnic and hypoxic respiratory failure secondary to likely congestive heart failure. This is a patient who presents with increasing dyspnea and lower extremity edema along with the weight gain and chest x-ray more favoring congestive heart failure. The patient's proBNP was elevated as well. 2. No significant history of tobacco use. 3. Morbid obesity and history of obstructive sleep apnea, but due to noncompliance with CPAP, it was taken away by her insurance company. 4. Fever, source not so obvious. Lacks symptoms of respiratory tract infection. Would recommend checking urine as well as a followup chest x-ray post-diuresis. Would also recommend adding empiric antibiotic. Plan . 1. Follow chest x-ray post-diuresis shows improvement 2. Oxygen at 1 litre. Avoid hyperoxia 3. Continue IV diuresis. 4. empiric antibiotic. 5. Follow urine cultures and blood cultures. 6. Monitor fever closely. 7. Echo 9. f/u ABG as needed 8. Discussed with RN. We will follow along with you. XENIA MARAVILLA MD Nov 13, 2017 10:42
[2017-11-13 11:00] VITALS: BP 156/60
--- NOTE | 2017-11-13 11:07 | PDOC ---
PROGRESS NOTES History of Present Illness History of Present Illness Assessment/Plan Assessment/Plan acute on chronic combined CHF, morbid obesity, BMI 44 ANEMIA weakness and debility Dm2, insulin dependent severe hypercapnic resp failure CHG PO LASIX FE PANEL bipap Vitals Vitals Vital Signs Date Time Temp Pulse Resp B/P (MAP) Pulse Ox O2 Delivery O2 Flow Rate FiO2 11/13/17 08:30 60 102/45 11/13/17 08:00 Nasal Cannula 3.0 11/13/17 07:00 98.6 16 98 98.6 Physical Exam General: Alert, Oriented X3, Cooperative, No acute distress, mild distress Heart: Regular rate, Normal S1, Normal S2, Other (no changes in murmur) Lungs: Clear, Wheezing Abdomen: Normal bowel sounds, Soft Extremities: No clubbing, No cyanosis, Other (+ edema) Skin: No rashes, No significant lesion Labs LABS Laboratory Tests Test 11/12/17 13:11 11/12/17 14:27 11/12/17 16:11 11/12/17 16:37 O2 Saturation 97 % (92-99) 90 % (92-99) Arterial Blood pH 7.32 (7.35-7.45) 7.39 (7.35-7.45) Arterial Blood pCO2 at Patient Temp 94 mmHg (35-46) 79 mmHg (35-46) Arterial Blood pO2 at Patient Temp 111 mmHg (65-108) 58 mmHg (65-108) Arterial Blood HCO3 48 mmol/L (21-28) 46 mmol/L (21-28) Arterial Blood Base Excess 18 mmol/L (-3-3) 18 mmol/L (-3-3) Oxyhemoglobin 96.4 % Methemoglobin 0.2 % (0.0-1.9) Carbon Monoxide, Quantitative 0.8 % (0.0-1.9) FiO2 32 Glucose (Fingerstick) 52 mg/dL (70-99) 90 mg/dL (70-99) Test 11/12/17 20:20 11/13/17 07:32 11/13/17 08:00 Glucose (Fingerstick) 113 mg/dL (70-99) 100 mg/dL (70-99) O2 Saturation 97 % (92-99) Arterial Blood pH 7.36 (7.35-7.45) Arterial Blood pCO2 at Patient Temp 81 mmHg (35-46) Arterial Blood pO2 at Patient Temp 101 mmHg (65-108) Arterial Blood HCO3 44 mmol/L (21-28) Arterial Blood Base Excess 16 mmol/L (-3-3) FiO2 32 Comment Review of Relevant I have reviewed the following items nolan (where applicable) has been applied. Labs Laboratory Tests Test 11/11/17 11:11 11/11/17 16:40 11/11/17 20:37 11/12/17 07:20 Glucose (Fingerstick) 99 mg/dL (70-99) 117 mg/dL (70-99) 206 mg/dL (70-99) 88 mg/dL (70-99) Test 11/12/17 08:15 11/12/17 10:59 11/12/17 13:11 11/12/17 14:27 White Blood Count 7.2 x10^3/uL (4.0-11.0) Red Blood Count 3.51 x10^6/uL (3.50-5.40) Hemoglobin 9.9 g/dL (12.0-15.5) Hematocrit 30.2 % (36.0-47.0) Mean Corpuscular Volume 86 fL (79-100) Mean Corpuscular Hemoglobin 28 pg (25-35) Mean Corpuscular Hemoglobin Concent 33 g/dL (31-37) Red Cell Distribution Width 16.0 % (11.5-14.5) Platelet Count 315 x10^3/uL (140-400) Neutrophils (%) (Auto) 76 % (31-73) Lymphocytes (%) (Auto) 15 % (24-48) Monocytes (%) (Auto) 7 % (0-9) Eosinophils (%) (Auto) 1 % (0-3) Basophils (%) (Auto) 0 % (0-3) Neutrophils # (Auto) 5.5 x10^3uL (1.8-7.7) Lymphocytes # (Auto) 1.1 x10^3/uL (1.0-4.8) Monocytes # (Auto) 0.5 x10^3/uL (0.0-1.1) Eosinophils # (Auto) 0.1 x10^3/uL (0.0-0.7) Basophils # (Auto) 0.0 x10^3/uL (0.0-0.2) Reticulocyte Count (auto) 3.1 % (0.5-2.5) Sodium Level 138 mmol/L (136-145) Potassium Level 4.1 mmol/L (3.5-5.1) Chloride Level 97 mmol/L (98-107) Carbon Dioxide Level 43 mmol/L (21-32) Anion Gap (6-14) Blood Urea Nitrogen 18 mg/dL (7-20) Creatinine 0.9 mg/dL (0.6-1.0) Estimated GFR (Cockcroft-Gault) 76.5 Glucose Level 115 mg/dL (70-99) Calcium Level 9.3 mg/dL (8.5-10.1) Iron Level 38 ug/dL (50-170) Total Iron Binding Capacity 372 ug/dL (250-450) Iron Saturation 10 % (15-34) Thyroid Stimulating Hormone (TSH) 0.701 uIU/mL (0.358-3.74) Glucose (Fingerstick) 146 mg/dL (70-99) O2 Saturation 97 % (92-99) 90 % (92-99) Arterial Blood pH 7.32 (7.35-7.45) 7.39 (7.35-7.45) Arterial Blood pCO2 at Patient Temp 94 mmHg (35-46) 79 mmHg (35-46) Arterial Blood pO2 at Patient Temp 111 mmHg (65-108) 58 mmHg (65-108) Arterial Blood HCO3 48 mmol/L (21-28) 46 mmol/L (21-28) Arterial Blood Base Excess 18 mmol/L (-3-3) 18 mmol/L (-3-3) Oxyhemoglobin 96.4 % Methemoglobin 0.2 % (0.0-1.9) Carbon Monoxide, Quantitative 0.8 % (0.0-1.9) FiO2 32 Test 11/12/17 16:11 11/12/17 16:37 11/12/17 20:20 11/13/17 07:32 Glucose (Fingerstick) 52 mg/dL (70-99) 90 mg/dL (70-99) 113 mg/dL (70-99) 100 mg/dL (70-99) Test 11/13/17 08:00 O2 Saturation 97 % (92-99) Arterial Blood pH 7.36 (7.35-7.45) Arterial Blood pCO2 at Patient Temp 81 mmHg (35-46) Arterial Blood pO2 at Patient Temp 101 mmHg (65-108) Arterial Blood HCO3 44 mmol/L (21-28) Arterial Blood Base Excess 16 mmol/L (-3-3) FiO2 32 Laboratory Tests Test 11/12/17 13:11 11/12/17 14:27 11/12/17 16:11 11/12/17 16:37 O2 Saturation 97 % (92-99) 90 % (92-99) Arterial Blood pH 7.32 (7.35-7.45) 7.39 (7.35-7.45) Arterial Blood pCO2 at Patient Temp 94 mmHg (35-46) 79 mmHg (35-46) Arterial Blood pO2 at Patient Temp 111 mmHg (65-108) 58 mmHg (65-108) Arterial Blood HCO3 48 mmol/L (21-28) 46 mmol/L (21-28) Arterial Blood Base Excess 18 mmol/L (-3-3) 18 mmol/L (-3-3) Oxyhemoglobin 96.4 % Methemoglobin 0.2 % (0.0-1.9) Carbon Monoxide, Quantitative 0.8 % (0.0-1.9) FiO2 32 Glucose (Fingerstick) 52 mg/dL (70-99) 90 mg/dL (70-99) Test 11/12/17 20:20 11/13/17 07:32 11/13/17 08:00 Glucose (Fingerstick) 113 mg/dL (70-99) 100 mg/dL (70-99) O2 Saturation 97 % (92-99) Arterial Blood pH 7.36 (7.35-7.45) Arterial Blood pCO2 at Patient Temp 81 mmHg (35-46) Arterial Blood pO2 at Patient Temp 101 mmHg (65-108) Arterial Blood HCO3 44 mmol/L (21-28) Arterial Blood Base Excess 16 mmol/L (-3-3) FiO2 32 Medications Current Medications Fentanyl Citrate (Fentanyl 2ml Vial) 50 mcg 1X ONCE IV ; Start 11/10/17 at 14: 00; Stop 11/10/17 at 14:02; Status DC Ondansetron HCl (Zofran) 4 mg 1X ONCE IV ; Start 11/10/17 at 14:00; Stop at 14:02; Status DC Morphine Sulfate (Morphine Sulfate) 8 mg 1X ONCE IM Last administered on at 15:42; Start 11/10/17 at 16:00; Stop 11/10/17 at 16:01; Status DC Furosemide (Lasix) 60 mg BID92 IVP Last administered on 11/12/17at 09:14; Start 11/10/17 at 17:00; Stop 11/12/17 at 12:58; Status DC Aspirin (Ecotrin) 81 mg DAILY PO Last administered on 11/13/17at 08:09; Start at 09:00 Atorvastatin Calcium (Lipitor) 20 mg HS PO Last administered on 11/12/17at 21:53 ; Start 11/10/17 at 21:00 Clopidogrel Bisulfate (Plavix) 75 mg DAILY PO Last administered on 11/13/17at 08 :31; Start 11/11/17 at 09:00 Ferrous Sulfate (Feosol) 325 mg DAILY PO Last administered on 11/13/17at 08:08; Start 11/11/17 at 09:00 Glimepiride (Amaryl) 2 mg DAILY PO Last administered on 11/13/17 08:09; Start 11/11/17 at 09:00 Insulin Human Lispro (HumaLOG) 20 units TIDWMEALS SQ Last administered on at 13:10; Start 11/10/17 at 18:00 Losartan Potassium (Cozaar) 50 mg DAILY PO Last administered on 11/12/17at 09:14 ; Start 11/11/17 at 09:00 Metoprolol Tartrate (Lopressor) 25 mg BID PO Last administered on 11/13/17at 08: 30; Start 11/10/17 at 21:00 Nitroglycerin (Nitrostat) 0.4 mg PRN Q5MIN PRN SL CHEST PAIN; Start 11/10/17 at 17:15 Oxycodone/ Acetaminophen (Percocet 10/325) 1 tab PRN Q4HRS PRN PO PAIN Last administered on 11/12/17at 05:55; Start 11/10/17 at 17:15; Stop 11/12/17 at 13:11 ; Status DC Potassium Chloride (Klor-Con) 10 meq BID PO Last administered on 11/13/17at 08: 08; Start 11/10/17 at 21:00 Non-Formulary Medication (Albuterol Sulfate (Albuterol Sulfate Conc Neb Soln)) 5 mg PRN PRN NEB WHEEZING; Start 11/10/17 at 17:15; Stop 11/10/17 at 17:27; Status DC Insulin Glargine (Lantus) 32 units BID SQ Last administered on 11/12/17at 21:58 ; Start 11/10/17 at 21:00 Pantoprazole Sodium (Protonix) 40 mg DAILYAC PO Last administered on 11/13/17at 08:08; Start 11/11/17 at 07:30 Zolpidem Tartrate (Ambien) 5 mg PRN QHS PRN PO INSOMNIA Last administered on at 21:53; Start 11/10/17 at 17:15 Ondansetron HCl (Zofran) 4 mg PRN Q8HRS PRN IV NAUSEA/VOMITING; Start 11/10/17 at 17:15; Stop 11/11/17 at 17:14; Status DC Morphine Sulfate (Morphine Sulfate) 2 mg PRN Q2HR PRN IV PAIN Last administered on 11/11/17at 13:14; Start 11/10/17 at 17:15; Stop 11/11/17 at 17:14 ; Status DC Albuterol Sulfate (Ventolin Neb Soln) 2.5 mg PRN Q6HRS PRN NEB SHORTNESS OF BREATH; Start 11/10/17 at 17:30 Furosemide (Lasix) 60 mg BID92 PO Last administered on 11/12/17at 13:06; Start 11/12/17 at 14:00 Acetaminophen (Tylenol) 650 mg PRN Q6HRS PRN PO PAIN Last administered on at 13:29; Start 11/12/17 at 13:30 Levofloxacin/ Dextrose 100 ml @ 100 mls/hr Q24H IV Last administered on at 15:43; Start 11/12/17 at 15:00 Lactobacillus Rhamnosus (Culturelle) 1 cap BID PO Last administered on at 08:09; Start 11/12/17 at 21:00 Perflutren Protein Type A Microsphe (Optison) 0.66 mg STK-MED ONCE IV ; Start at 10:39; Stop 11/13/17 at 10:40; Status DC Active Scripts Active [Pantoprazole] 40 MG Tablet. 40 Mg PO DAILYAC 30 Days Amaryl (Glimepiride) 2 Mg Tablet 2 Mg PO DAILY 30 Days Reported Furosemide 80 Mg Tablet 60 Mg PO DAILY Levemir Flextouch (Insulin Detemir) 100 Unit/1 Ml Insuln.pen 32 Unit SQ BID Novolog (Insulin Aspart) 100 Unit/1 Ml Vial 20 Unit SQ TIDAC Albuterol Sulfate Conc Neb Soln (Albuterol Sulfate) 2.5 Mg/0.5 Ml Vial.neb 5 Mg NEB PRN PRN Percocet 10-325 Mg Tablet (Oxycodone/Acetaminophen) 1 Each Tablet 2 Tab PO PRN Q4HRS PRN Percocet 10-325 Mg Tablet (Oxycodone/Acetaminophen) 1 Each Tablet 1 Tab PO PRN Q4HRS PRN Losartan Potassium 50 Mg Tablet 50 Mg PO DAILY Metoprolol Tartrate 25 Mg Tablet 1 Tab PO BID Ferrous Sulfate 325 Mg Tablet 1 Tab PO DAILY NITROGLYCERIN SubLingual (Nitroglycerin) 0.4 Mg Tab.subl 0.4 Mg SL PRN Q5MIN PRN Atorvastatin Calcium 20 Mg Tablet 20 Mg PO HS Potassium Chloride 10 Meq Capsule.er 10 Meq PO BID Aspir 81 (Aspirin) 81 Mg Tablet. 1 Tab PO DAILY Clopidogrel (Clopidogrel Bisulfate) 75 Mg Tablet 1 Tab PO DAILY Vitals/I & O Vital Sign - Last 24 Hours 11/12/17 11/12/17 11/12/17 11/12/17 15:00 16:28 19:00 19:59 Temp 99.0 98.2 99.0 98.2 Pulse 59 63 Resp 16 25 B/P (MAP) 114/45 (68) 125/46 (72) Pulse Ox 98 96 92 O2 Delivery Nasal Cannula BiPAP/CPAP Nasal Cannula Nasal Cannula O2 Flow Rate 3.0 3.0 3.0 11/12/17 11/12/17 11/12/17 11/12/17 21:38 21:53 23:00 23:20 Temp 98.3 98.3 Pulse 63 56 Resp 21 B/P (MAP) 125/46 136/53 (80) Pulse Ox 96 96 96 O2 Delivery BiPAP/CPAP Nasal Cannula BiPAP/CPAP O2 Flow Rate 3.0 11/13/17 11/13/17 11/13/17 11/13/17 01:02 02:46 03:46 07:00 Temp 98.8 98.6 98.8 98.6 Pulse 60 60 Resp 24 16 B/P (MAP) 167/67 (100) 102/45 (64) Pulse Ox 97 95 97 98 O2 Delivery BiPAP/CPAP BiPAP/CPAP BiPAP/CPAP Nasal Cannula O2 Flow Rate 3.0 2.0 11/13/17 11/13/17 08:00 08:30 Pulse 60 B/P (MAP) 102/45 O2 Delivery Nasal Cannula O2 Flow Rate 3.0 Intake and Output 11/12/17 11/12/17 11/13/17 15:00 23:00 07:00 Intake Total 320 ml 1190 ml 120 ml Output Total 1150 ml 700 ml Balance 320 ml 40 ml -580 ml JHON ZAPIEN MD Nov 13, 2017 11:07
[2017-11-13] MEDS ORDERED: PERFLUTREN PROTEIN-A MICROSPHR 0.22 MG/ML 3 ML VIAL. IV PRN (11:30)
[2017-11-13] MEDS: LOSARTAN POTASSIUM 50 MG TABLET. PO SCH (11:45)
[2017-11-13] MEDS: FUROSEMIDE 20 MG TABLET PO SCH ×2 (11:45→16:15)
[2017-11-13 12:18] LABS: BASE EXCESS ABG 18 mmol/L (-3-3); HCO3 ABG 47 mmol/L (21-28); PO2 ABG 71 mmHg (65-108); SAT O2 ABG 93 % (92-99)
[2017-11-13 12:32] LABS: FIO2 ABG 24; PCO2 ABG 82 mmHg (35-46)
[2017-11-13 15:00] VITALS: BP 142/54
--- NOTE | 2017-11-13 17:28 | CARD ---
MR#: [id number] Date of Study: 11/13/2017 Ordering Physician: XENIA MARAVILLA, Referring Physician: LÓPEZ BARRIOS Tech: VIOLET Vigil APPROVED REPORT EXAM: Two-dimensional and M-mode echocardiogram with Doppler, color Doppler with contrast. Other Information Quality : PoorHR: 66bpm INDICATION Congestive Heart Failure Echo Enhancing Agent Indication: Endocardial border delineation Agent/Amount Used: Optison 3mL Surgery/Intervention Pacemaker: RISK FACTORS Hypertension Obesity 2D DIMENSIONS Left Atrium(2D)4.0 (1.6-4.0cm)IVSd1.8 (0.7-1.1cm) Aortic Root(2D)2.6 (2.0-3.7cm)LVDd4.7 (3.9-5.9cm) LVOT Diameter1.6 (1.8-2.4cm)PWd2.2 (0.7-1.1cm) LVDs3.1 (2.5-4.0cm)SV61.1 ml Aortic Valve AoV Peak Roel.153.2cm/sAoV VTI31.9cm AO Peak GR.9.4mmHgLVOT Peak Roel.86.5cm/s LVOT VTI 15.15cmAO Mean GR.5mmHg TISH (VMAX)0.67ix1FPK (VTI)1.00cm2 Mitral Valve MV E Prvugatz88.6cm/sMV DECEL [id number] MV A Swwtcmlp91.2cm/sMV [id number] E/A Ratio1.8MVA (PHT)4.82cm2 TDI E/Lateral E'12.1E/Medial E'13.0 Pulmonary Valve PV Peak Zxpfigma203.4cm/sPV Peak Grad.7mmHg Tricuspid Valve TR P. [id number]/sRAP [id number] TR Peak Gr.[id number] LEFT VENTRICLE The left ventricle is normal size. Very poor visualization of the LV There is moderate to severe conc entric left ventricular hypertrophy. Due to the poor quality of the echocardiogram, an assessment of left ventricular ejection fraction cannot be assessed. RIGHT VENTRICLE The right ventricle is not well visualized but seems to be dilated. ATRIA The left atrium is borderline dilated. The RA was poorly visualized Interatrial septum not well visua lized. AORTIC VALVE The aortic valve is not well visualized. Doppler and Color Flow revealed no significant aortic regurg itation. There is no significant aortic valvular stenosis. MITRAL VALVE The mitral valve is not well visualized. There is no mitral valve stenosis. Doppler and Color Flow re vealed no mitral valve regurgitation noted. TRICUSPID VALVE The tricuspid valve is not well visualized. Doppler and Color Flow revealed mild to moderate tricuspi d regurgitation. There is severe pulmonary hypertension. The PA pressure was estimated at 62 mmHg. Th ere is no tricuspid valve stenosis. PULMONIC VALVE The pulmonic valve is not well visualized. Doppler and Color Flow revealed trace pulmonic valvular re gurgitation. There is no pulmonic valvular stenosis. GREAT VESSELS The aortic root is not well visualized. The IVC is dilated and collapses <50% with inspiration. PERICARDIAL EFFUSION There is no pleural effusion. There is no evidence of significant pericardial effusion. Critical Notification Critical Value: No <Conclusion> There is moderate to severe concentric left ventricular hypertrophy. Due to the poor quality of the echocardiogram, an assessment of left ventricular ejection fraction ca nnot be assessed. The right ventricle is not well visualized but seems to be dilated. The left atrium is borderline dilated. The RA was poorly visualized The aortic valve is not well visualized. The mitral valve is not well visualized. Doppler and Color Flow revealed mild to moderate tricuspid regurgitation. There is severe pulmonary hypertension. The PA pressure was estimated at 62 mmHg. The pulmonic valve is not well visualized. There is no evidence of significant pericardial effusion. Signed by : Oswaldo Arias MD Electronically Approved : 11/13/2017 17:27:48
--- NOTE | 2017-11-13 17:43 | PDOC ---
PROGRESS NOTES Subjective Subjective Patient complains of being more short of breath today. Objective Objective Vital Signs Date Time Temp Pulse Resp B/P (MAP) Pulse Ox O2 Delivery O2 Flow Rate FiO2 11/13/17 15:00 97.4 60 16 142/54 (83) 97 Nasal Cannula 2.0 97.4 Intake and Output 11/13/17 07:00 Intake Total 1630 ml Output Total 1850 ml Balance -220 ml Intake Oral 1630 ml Output Urine Total 1850 ml Physical Exam Physical Exam Sounds are decreased compared with yesterday mild wheezing some Rales. No changes in heart sounds. No changes in edema Assessment Assessment Patient seems to be doing worse today with more dyspnea and an echocardiogram was done that was rather poor quality due to the patient's lungs affecting the views of the ultrasound. I could not see the endocardium well enough to be able to assess the left ventricular ejection fraction of the right ventricular ejection fraction. Both chambers appear to be somewhat dilated. There seems to be a moderate to severe pulmonary hypertension with an estimated pulmonary artery pressure in the 60s. I agree with the plan from pulmonary. If she does not improve may need to consider moving her to a cardiac floor and doing a milrinone infusion for 24-48 hours Comment Review of Relevant I have reviewed the following items nolan (where applicable) has been applied. Labs Laboratory Tests Test 11/11/17 20:37 11/12/17 07:20 11/12/17 08:15 11/12/17 10:59 Glucose (Fingerstick) 206 mg/dL (70-99) 88 mg/dL (70-99) 146 mg/dL (70-99) White Blood Count 7.2 x10^3/uL (4.0-11.0) Red Blood Count 3.51 x10^6/uL (3.50-5.40) Hemoglobin 9.9 g/dL (12.0-15.5) Hematocrit 30.2 % (36.0-47.0) Mean Corpuscular Volume 86 fL (79-100) Mean Corpuscular Hemoglobin 28 pg (25-35) Mean Corpuscular Hemoglobin Concent 33 g/dL (31-37) Red Cell Distribution Width 16.0 % (11.5-14.5) Platelet Count 315 x10^3/uL (140-400) Neutrophils (%) (Auto) 76 % (31-73) Lymphocytes (%) (Auto) 15 % (24-48) Monocytes (%) (Auto) 7 % (0-9) Eosinophils (%) (Auto) 1 % (0-3) Basophils (%) (Auto) 0 % (0-3) Neutrophils # (Auto) 5.5 x10^3uL (1.8-7.7) Lymphocytes # (Auto) 1.1 x10^3/uL (1.0-4.8) Monocytes # (Auto) 0.5 x10^3/uL (0.0-1.1) Eosinophils # (Auto) 0.1 x10^3/uL (0.0-0.7) Basophils # (Auto) 0.0 x10^3/uL (0.0-0.2) Reticulocyte Count (auto) 3.1 % (0.5-2.5) Sodium Level 138 mmol/L (136-145) Potassium Level 4.1 mmol/L (3.5-5.1) Chloride Level 97 mmol/L (98-107) Carbon Dioxide Level 43 mmol/L (21-32) Anion Gap (6-14) Blood Urea Nitrogen 18 mg/dL (7-20) Creatinine 0.9 mg/dL (0.6-1.0) Estimated GFR (Cockcroft-Gault) 76.5 Glucose Level 115 mg/dL (70-99) Calcium Level 9.3 mg/dL (8.5-10.1) Iron Level 38 ug/dL (50-170) Total Iron Binding Capacity 372 ug/dL (250-450) Iron Saturation 10 % (15-34) Thyroid Stimulating Hormone (TSH) 0.701 uIU/mL (0.358-3.74) Test 11/12/17 13:11 11/12/17 14:27 11/12/17 16:11 11/12/17 16:37 O2 Saturation 97 % (92-99) 90 % (92-99) Arterial Blood pH 7.32 (7.35-7.45) 7.39 (7.35-7.45) Arterial Blood pCO2 at Patient Temp 94 mmHg (35-46) 79 mmHg (35-46) Arterial Blood pO2 at Patient Temp 111 mmHg (65-108) 58 mmHg (65-108) Arterial Blood HCO3 48 mmol/L (21-28) 46 mmol/L (21-28) Arterial Blood Base Excess 18 mmol/L (-3-3) 18 mmol/L (-3-3) Oxyhemoglobin 96.4 % Methemoglobin 0.2 % (0.0-1.9) Carbon Monoxide, Quantitative 0.8 % (0.0-1.9) FiO2 32 Glucose (Fingerstick) 52 mg/dL (70-99) 90 mg/dL (70-99) Test 11/12/17 20:20 11/13/17 07:32 11/13/17 08:00 11/13/17 11:27 Glucose (Fingerstick) 113 mg/dL (70-99) 100 mg/dL (70-99) 110 mg/dL (70-99) O2 Saturation 97 % (92-99) Arterial Blood pH 7.36 (7.35-7.45) Arterial Blood pCO2 at Patient Temp 81 mmHg (35-46) Arterial Blood pO2 at Patient Temp 101 mmHg (65-108) Arterial Blood HCO3 44 mmol/L (21-28) Arterial Blood Base Excess 16 mmol/L (-3-3) FiO2 32 Test 11/13/17 12:00 O2 Saturation 93 % (92-99) Arterial Blood pH 7.37 (7.35-7.45) Arterial Blood pCO2 at Patient Temp 82 mmHg (35-46) Arterial Blood pO2 at Patient Temp 71 mmHg (65-108) Arterial Blood HCO3 47 mmol/L (21-28) Arterial Blood Base Excess 18 mmol/L (-3-3) FiO2 24 Laboratory Tests Test 11/12/17 20:20 11/13/17 07:32 11/13/17 08:00 11/13/17 11:27 Glucose (Fingerstick) 113 mg/dL (70-99) 100 mg/dL (70-99) 110 mg/dL (70-99) O2 Saturation 97 % (92-99) Arterial Blood pH 7.36 (7.35-7.45) Arterial Blood pCO2 at Patient Temp 81 mmHg (35-46) Arterial Blood pO2 at Patient Temp 101 mmHg (65-108) Arterial Blood HCO3 44 mmol/L (21-28) Arterial Blood Base Excess 16 mmol/L (-3-3) FiO2 32 Test 11/13/17 12:00 O2 Saturation 93 % (92-99) Arterial Blood pH 7.37 (7.35-7.45) Arterial Blood pCO2 at Patient Temp 82 mmHg (35-46) Arterial Blood pO2 at Patient Temp 71 mmHg (65-108) Arterial Blood HCO3 47 mmol/L (21-28) Arterial Blood Base Excess 18 mmol/L (-3-3) FiO2 24 Microbiology 11/12/17 Blood Culture - Preliminary, Resulted NO GROWTH AFTER 1 DAY Medications Current Medications Fentanyl Citrate (Fentanyl 2ml Vial) 50 mcg 1X ONCE IV ; Start 11/10/17 at 14: 00; Stop 11/10/17 at 14:02; Status DC Ondansetron HCl (Zofran) 4 mg 1X ONCE IV ; Start 11/10/17 at 14:00; Stop at 14:02; Status DC Morphine Sulfate (Morphine Sulfate) 8 mg 1X ONCE IM Last administered on at 15:42; Start 11/10/17 at 16:00; Stop 11/10/17 at 16:01; Status DC Furosemide (Lasix) 60 mg BID92 IVP Last administered on 11/12/17at 09:14; Start 11/10/17 at 17:00; Stop 11/12/17 at 12:58; Status DC Aspirin (Ecotrin) 81 mg DAILY PO Last administered on 11/13/17at 08:09; Start at 09:00 Atorvastatin Calcium (Lipitor) 20 mg HS PO Last administered on 11/12/17at 21:53 ; Start 11/10/17 at 21:00 Clopidogrel Bisulfate (Plavix) 75 mg DAILY PO Last administered on 11/13/17at 08 :31; Start 11/11/17 at 09:00 Ferrous Sulfate (Feosol) 325 mg DAILY PO Last administered on 11/13/17at 08:08; Start 11/11/17 at 09:00 Glimepiride (Amaryl) 2 mg DAILY PO Last administered on 11/13/17at 08:09; Start 11/11/17 at 09:00 Insulin Human Lispro (HumaLOG) 20 units TIDWMEALS SQ Last administered on at 13:10; Start 11/10/17 at 18:00 Losartan Potassium (Cozaar) 50 mg DAILY PO Last administered on 11/13/17at 11:45 ; Start 11/11/17 at 09:00 Metoprolol Tartrate (Lopressor) 25 mg BID PO Last administered on 11/13/17at 08: 30; Start 11/10/17 at 21:00 Nitroglycerin (Nitrostat) 0.4 mg PRN Q5MIN PRN SL CHEST PAIN; Start 11/10/17 at 17:15 Oxycodone/ Acetaminophen (Percocet 10/325) 1 tab PRN Q4HRS PRN PO PAIN Last administered on 11/12/17at 05:55; Start 11/10/17 at 17:15; Stop 11/12/17 at 13:11 ; Status DC Potassium Chloride (Klor-Con) 10 meq BID PO Last administered on 11/13/17at 08: 08; Start 11/10/17 at 21:00 Non-Formulary Medication (Albuterol Sulfate (Albuterol Sulfate Conc Neb Soln)) 5 mg PRN PRN NEB WHEEZING; Start 11/10/17 at 17:15; Stop 11/10/17 at 17:27; Status DC Insulin Glargine (Lantus) 32 units BID SQ Last administered on 11/12/17at 21:58 ; Start 11/10/17 at 21:00 Pantoprazole Sodium (Protonix) 40 mg DAILYAC PO Last administered on 11/13/17at 08:08; Start 11/11/17 at 07:30 Zolpidem Tartrate (Ambien) 5 mg PRN QHS PRN PO INSOMNIA Last administered on at 21:53; Start 11/10/17 at 17:15 Ondansetron HCl (Zofran) 4 mg PRN Q8HRS PRN IV NAUSEA/VOMITING; Start 11/10/17 at 17:15; Stop 11/11/17 at 17:14; Status DC Morphine Sulfate (Morphine Sulfate) 2 mg PRN Q2HR PRN IV PAIN Last administered on 11/11/17at 13:14; Start 11/10/17 at 17:15; Stop 11/11/17 at 17:14 ; Status DC Albuterol Sulfate (Ventolin Neb Soln) 2.5 mg PRN Q6HRS PRN NEB SHORTNESS OF BREATH; Start 11/10/17 at 17:30 Furosemide (Lasix) 60 mg BID92 PO Last administered on 11/13/17at 16:15; Start 11/12/17 at 14:00 Acetaminophen (Tylenol) 650 mg PRN Q6HRS PRN PO PAIN Last administered on at 13:29; Start 11/12/17 at 13:30 Levofloxacin/ Dextrose 100 ml @ 100 mls/hr Q24H IV Last administered on at 15:43; Start 11/12/17 at 15:00 Lactobacillus Rhamnosus (Culturelle) 1 cap BID PO Last administered on at 08:09; Start 11/12/17 at 21:00 Perflutren Protein Type A Microsphe (Optison) 0.66 mg STK-MED ONCE IV ; Start at 10:39; Stop 11/13/17 at 10:40; Status DC Perflutren Protein Type A Microsphe (Optison) 0.66 mg PRN 1X PRN IV SEE COMMENTS Last administered on 11/13/17at 11:45; Start 11/13/17 at 11:30; Stop at 11:29 Active Scripts Active [Pantoprazole] 40 MG Tablet.dr 40 Mg PO DAILYAC 30 Days Amaryl (Glimepiride) 2 Mg Tablet 2 Mg PO DAILY 30 Days Reported Furosemide 80 Mg Tablet 60 Mg PO DAILY Levemir Flextouch (Insulin Detemir) 100 Unit/1 Ml Insuln.pen 32 Unit SQ BID Novolog (Insulin Aspart) 100 Unit/1 Ml Vial 20 Unit SQ TIDAC Albuterol Sulfate Conc Neb Soln (Albuterol Sulfate) 2.5 Mg/0.5 Ml Vial.neb 5 Mg NEB PRN PRN Percocet 10-325 Mg Tablet (Oxycodone/Acetaminophen) 1 Each Tablet 2 Tab PO PRN Q4HRS PRN Percocet 10-325 Mg Tablet (Oxycodone/Acetaminophen) 1 Each Tablet 1 Tab PO PRN Q4HRS PRN Losartan Potassium 50 Mg Tablet 50 Mg PO DAILY Metoprolol Tartrate 25 Mg Tablet 1 Tab PO BID Ferrous Sulfate 325 Mg Tablet 1 Tab PO DAILY NITROGLYCERIN SubLingual (Nitroglycerin) 0.4 Mg Tab.subl 0.4 Mg SL PRN Q5MIN PRN Atorvastatin Calcium 20 Mg Tablet 20 Mg PO HS Potassium Chloride 10 Meq Capsule.er 10 Meq PO BID Aspir 81 (Aspirin) 81 Mg Tablet. 1 Tab PO DAILY Clopidogrel (Clopidogrel Bisulfate) 75 Mg Tablet 1 Tab PO DAILY Vitals/I & O Vital Sign - Last 24 Hours 11/12/17 11/12/17 11/12/17 11/12/17 19:00 19:59 21:38 21:53 Temp 98.2 98.2 Pulse 63 63 Resp 25 B/P (MAP) 125/46 (72) 125/46 Pulse Ox 92 96 O2 Delivery Nasal Cannula Nasal Cannula BiPAP/CPAP O2 Flow Rate 3.0 3.0 11/12/17 11/12/17 11/13/17 11/13/17 23:00 23:20 01:02 02:46 Temp 98.3 98.8 98.3 98.8 Pulse 56 60 Resp 21 24 B/P (MAP) 136/53 (80) 167/67 (100) Pulse Ox 96 96 97 95 O2 Delivery Nasal Cannula BiPAP/CPAP BiPAP/CPAP BiPAP/CPAP O2 Flow Rate 3.0 3.0 11/13/17 11/13/17 11/13/17 11/13/17 03:46 07:00 08:00 08:30 Temp 98.6 98.6 Pulse 60 60 Resp 16 B/P (MAP) 102/45 (64) 102/45 Pulse Ox 97 98 O2 Delivery BiPAP/CPAP Nasal Cannula Nasal Cannula O2 Flow Rate 2.0 3.0 11/13/17 11/13/17 11/13/17 11:00 11:45 15:00 Temp 98.0 97.4 98.0 97.4 Pulse 63 63 60 Resp 16 16 B/P (MAP) 156/60 (92) 156/60 142/54 (83) Pulse Ox 97 O2 Delivery Nasal Cannula Nasal Cannula O2 Flow Rate 2.0 2.0 Intake and Output 11/12/17 11/12/17 11/13/17 15:00 23:00 07:00 Intake Total 320 ml 1190 ml 120 ml Output Total 1150 ml 700 ml Balance 320 ml 40 ml -580 ml LIZBET LINDSAY MD Nov 13, 2017 17:43
[2017-11-13 19:00] VITALS: BP 166/68
[2017-11-13] MEDS: ACETAMINOPHEN 325 MG TABLET. PO PRN (22:25)
[2017-11-13] MEDS: ATORVASTATIN CALCIUM 20 MG TABLET PO SCH (22:26)
[2017-11-13] MEDS: ZOLPIDEM 5 MG TABLET. PO PRN (22:27)
--- NOTE | 2017-11-13 22:58 | RAD ---
Indication: PICC line placement check TECHNIQUE: Single AP upright view of the chest COMPARISON: Previous study from the same day earlier FINDINGS: Patient is slightly rotated to the left side limiting optimal evaluation. Heart is moderately enlarged in size. CABG changes noted. Stable position of dual-lead cardiac pacer with its leads projecting over the heart. Interval placement of right-sided PICC line with its tip in the SVC. Prominent pulmonary vasculature is noted. No pneumothorax or pleural effusion. Visualized bony thorax within normal limits. IMPRESSION: 1. Tip of the PICC line is in the mid SVC. 2. Findings of mild interstitial pulmonary edema. Electronically signed by: Fede Purvis DO (11/13/2017 10:55 PM) [facility]
[2017-11-13 23:00] VITALS: BP 173/68
[2017-11-14 03:00] VITALS: BP 163/71
[2017-11-14 07:00] VITALS: BP 164/74
[2017-11-14] MEDS: LACTOBACILLUS RHAMNOSUS GG 1 CAPSULE. PO SCH ×2 (08:09→21:01)
[2017-11-14] MEDS: POTASSIUM CHLORIDE 10 MEQ TABLET.ER. PO SCH ×2 (08:09→21:01)
[2017-11-14] MEDS: CLOPIDOGREL BISULFATE 75 MG TABLET PO SCH (08:09)
[2017-11-14] MEDS: GLIMEPIRIDE 2 MG TABLET. PO SCH (08:09)
[2017-11-14] MEDS: PANTOPRAZOLE 40 MG TABLET.DR. PO SCH (08:09)
[2017-11-14] MEDS: LOSARTAN POTASSIUM 50 MG TABLET. PO SCH (08:10)
[2017-11-14] MEDS: ASPIRIN ENTERIC COATED 81 MG TABLET.DR. PO SCH (08:10)
[2017-11-14] MEDS: FUROSEMIDE 20 MG TABLET PO SCH ×2 (08:10→16:11)
[2017-11-14] MEDS: FERROUS SULFATE 325 MG TABLET. PO SCH (08:10)
[2017-11-14] MEDS: METOPROLOL TART IMMED RELEASE 25 MG TABLET. PO SCH ×2 (08:10→21:02)
[2017-11-14] MEDS: INSULIN LISPRO 300 UNITS/3 ML INSULN.PEN. SQ SCH ×3 (08:20→17:00)
[2017-11-14] MEDS: INSULIN GLARGINE 300 UNITS/3 ML INSULN.PEN. SQ SCH ×2 (08:20→21:08)
[2017-11-14] MEDS ORDERED: cloNIDine HCL 0.1 MG TABLET PO PRN (09:00)
--- NOTE | 2017-11-14 09:59 | PDOC ---
PROGRESS NOTES Chief Complaint Chief Complaint acute on chronic combined CHF, morbid obesity, BMI 44 ANEMIA weakness and debility Dm2, insulin dependent severe hypercapnic resp failure History of Present Illness History of Present Illness On the BiPAP last night Pulmonary note reviewed, needed to be on the BiPAP all day yesterday Patient requests for some Percocet again frpm me for her chronic back pain But pulmonary has stopped this because of severe hypercapnic respiratory failure -I did order a Lidoderm patch She seems a little bit more open to SNU needs this time Known to me for previous admits, frequent ones for the same Plan: Continue PT OT Will likely be here over the weekend Social work for SNU screen Lidoderm patch Hold off on any narcotics for now BiPAP when necessary Vitals Vitals Vital Signs Date Time Temp Pulse Resp B/P (MAP) Pulse Ox O2 Delivery O2 Flow Rate FiO2 11/14/17 08:10 60 164/74 11/14/17 07:00 98.1 16 96 Nasal Cannula 0.5 98.1 Physical Exam General: Alert, Oriented X3, Cooperative, No acute distress, mild distress Heart: Regular rate, Normal S1, Normal S2, Other (no changes in murmur) Lungs: Clear, Wheezing Abdomen: Normal bowel sounds, Soft Extremities: No clubbing, No cyanosis, Other (+ edema) Skin: No rashes, No significant lesion Labs LABS Laboratory Tests Test 11/13/17 11:27 11/13/17 12:00 11/13/17 16:40 11/13/17 20:36 Glucose (Fingerstick) 110 mg/dL (70-99) 93 mg/dL (70-99) 87 mg/dL (70-99) O2 Saturation 93 % (92-99) Arterial Blood pH 7.37 (7.35-7.45) Arterial Blood pCO2 at Patient Temp 82 mmHg (35-46) Arterial Blood pO2 at Patient Temp 71 mmHg (65-108) Arterial Blood HCO3 47 mmol/L (21-28) Arterial Blood Base Excess 18 mmol/L (-3-3) FiO2 24 Test 11/13/17 22:25 11/14/17 07:20 Glucose (Fingerstick) 165 mg/dL (70-99) 84 mg/dL (70-99) Review of Systems Review of Systems Back pain otherwise the rest of ROS 14 point negative Comment Review of Relevant I have reviewed the following items nolan (where applicable) has been applied. Labs Laboratory Tests Test 11/12/17 10:59 11/12/17 13:11 11/12/17 14:27 11/12/17 16:11 Glucose (Fingerstick) 146 mg/dL (70-99) 52 mg/dL (70-99) O2 Saturation 97 % (92-99) 90 % (92-99) Arterial Blood pH 7.32 (7.35-7.45) 7.39 (7.35-7.45) Arterial Blood pCO2 at Patient Temp 94 mmHg (35-46) 79 mmHg (35-46) Arterial Blood pO2 at Patient Temp 111 mmHg (65-108) 58 mmHg (65-108) Arterial Blood HCO3 48 mmol/L (21-28) 46 mmol/L (21-28) Arterial Blood Base Excess 18 mmol/L (-3-3) 18 mmol/L (-3-3) Oxyhemoglobin 96.4 % Methemoglobin 0.2 % (0.0-1.9) Carbon Monoxide, Quantitative 0.8 % (0.0-1.9) FiO2 32 Test 11/12/17 16:37 11/12/17 20:20 11/13/17 07:32 11/13/17 08:00 Glucose (Fingerstick) 90 mg/dL (70-99) 113 mg/dL (70-99) 100 mg/dL (70-99) O2 Saturation 97 % (92-99) Arterial Blood pH 7.36 (7.35-7.45) Arterial Blood pCO2 at Patient Temp 81 mmHg (35-46) Arterial Blood pO2 at Patient Temp 101 mmHg (65-108) Arterial Blood HCO3 44 mmol/L (21-28) Arterial Blood Base Excess 16 mmol/L (-3-3) FiO2 32 Test 11/13/17 11:27 11/13/17 12:00 11/13/17 16:40 11/13/17 20:36 Glucose (Fingerstick) 110 mg/dL (70-99) 93 mg/dL (70-99) 87 mg/dL (70-99) O2 Saturation 93 % (92-99) Arterial Blood pH 7.37 (7.35-7.45) Arterial Blood pCO2 at Patient Temp 82 mmHg (35-46) Arterial Blood pO2 at Patient Temp 71 mmHg (65-108) Arterial Blood HCO3 47 mmol/L (21-28) Arterial Blood Base Excess 18 mmol/L (-3-3) FiO2 24 Test 11/13/17 22:25 11/14/17 07:20 Glucose (Fingerstick) 165 mg/dL (70-99) 84 mg/dL (70-99) Laboratory Tests Test 11/13/17 11:27 11/13/17 12:00 11/13/17 16:40 11/13/17 20:36 Glucose (Fingerstick) 110 mg/dL (70-99) 93 mg/dL (70-99) 87 mg/dL (70-99) O2 Saturation 93 % (92-99) Arterial Blood pH 7.37 (7.35-7.45) Arterial Blood pCO2 at Patient Temp 82 mmHg (35-46) Arterial Blood pO2 at Patient Temp 71 mmHg (65-108) Arterial Blood HCO3 47 mmol/L (21-28) Arterial Blood Base Excess 18 mmol/L (-3-3) FiO2 24 Test 11/13/17 22:25 11/14/17 07:20 Glucose (Fingerstick) 165 mg/dL (70-99) 84 mg/dL (70-99) Microbiology 11/12/17 Blood Culture - Preliminary, Resulted NO GROWTH AFTER 1 DAY Medications Current Medications Fentanyl Citrate (Fentanyl 2ml Vial) 50 mcg 1X ONCE IV ; Start 11/10/17 at 14: 00; Stop 11/10/17 at 14:02; Status DC Ondansetron HCl (Zofran) 4 mg 1X ONCE IV ; Start 11/10/17 at 14:00; Stop at 14:02; Status DC Morphine Sulfate (Morphine Sulfate) 8 mg 1X ONCE IM Last administered on at 15:42; Start 11/10/17 at 16:00; Stop 11/10/17 at 16:01; Status DC Furosemide (Lasix) 60 mg BID92 IVP Last administered on 11/12/17at 09:14; Start 11/10/17 at 17:00; Stop 11/12/17 at 12:58; Status DC Aspirin (Ecotrin) 81 mg DAILY PO Last administered on 11/14/17at 08:10; Start at 09:00 Atorvastatin Calcium (Lipitor) 20 mg HS PO Last administered on 11/13/17at 22:26 ; Start 11/10/17 at 21:00 Clopidogrel Bisulfate (Plavix) 75 mg DAILY PO Last administered on 11/14/17at 08 :09; Start 11/11/17 at 09:00 Ferrous Sulfate (Feosol) 325 mg DAILY PO Last administered on 11/14/17at 08:10; Start 11/11/17 at 09:00 Glimepiride (Amaryl) 2 mg DAILY PO Last administered on 11/14/17 08:09; Start 11/11/17 at 09:00 Insulin Human Lispro (HumaLOG) 20 units TIDWMEALS SQ Last administered on 08:20; Start 11/10/17 at 18:00; Stop 11/14/17 at 08:49; Status DC Losartan Potassium (Cozaar) 50 mg DAILY PO Last administered on 11/14/17at 08:10 ; Start 11/11/17 at 09:00 Metoprolol Tartrate (Lopressor) 25 mg BID PO Last administered on 11/14/17at 08: 10; Start 11/10/17 at 21:00 Nitroglycerin (Nitrostat) 0.4 mg PRN Q5MIN PRN SL CHEST PAIN; Start 11/10/17 at 17:15 Oxycodone/ Acetaminophen (Percocet 10/325) 1 tab PRN Q4HRS PRN PO PAIN Last administered on 11/12/17at 05:55; Start 11/10/17 at 17:15; Stop 11/12/17 at 13:11 ; Status DC Potassium Chloride (Klor-Con) 10 meq BID PO Last administered on 11/14/17at 08: 09; Start 11/10/17 at 21:00 Non-Formulary Medication (Albuterol Sulfate (Albuterol Sulfate Conc Neb Soln)) 5 mg PRN PRN NEB WHEEZING; Start 11/10/17 at 17:15; Stop 11/10/17 at 17:27; Status DC Insulin Glargine (Lantus) 32 units BID SQ Last administered on 11/14/17at 08:20 ; Start 11/10/17 at 21:00; Stop 11/14/17 at 08:49; Status DC Pantoprazole Sodium (Protonix) 40 mg DAILYAC PO Last administered on 11/14/17 08:09; Start 11/11/17 at 07:30 Zolpidem Tartrate (Ambien) 5 mg PRN QHS PRN PO INSOMNIA Last administered on at 22:27; Start 11/10/17 at 17:15 Ondansetron HCl (Zofran) 4 mg PRN Q8HRS PRN IV NAUSEA/VOMITING; Start 11/10/17 at 17:15; Stop 11/11/17 at 17:14; Status DC Morphine Sulfate (Morphine Sulfate) 2 mg PRN Q2HR PRN IV PAIN Last administered on 11/11/17at 13:14; Start 11/10/17 at 17:15; Stop 11/11/17 at 17:14 ; Status DC Albuterol Sulfate (Ventolin Neb Soln) 2.5 mg PRN Q6HRS PRN NEB SHORTNESS OF BREATH; Start 11/10/17 at 17:30 Furosemide (Lasix) 60 mg BID92 PO Last administered on 11/14/17at 08:10; Start 11/12/17 at 14:00 Acetaminophen (Tylenol) 650 mg PRN Q6HRS PRN PO PAIN Last administered on 22:25; Start 11/12/17 at 13:30 Levofloxacin/ Dextrose 100 ml @ 100 mls/hr Q24H IV Last administered on at 20:28; Start 11/12/17 at 15:00 Lactobacillus Rhamnosus (Culturelle) 1 cap BID PO Last administered on at 08:09; Start 11/12/17 at 21:00 Perflutren Protein Type A Microsphe (Optison) 0.66 mg STK-MED ONCE IV ; Start at 10:39; Stop 11/13/17 at 10:40; Status DC Perflutren Protein Type A Microsphe (Optison) 0.66 mg PRN 1X PRN IV SEE COMMENTS Last administered on 11/13/17at 11:45; Start 11/13/17 at 11:30; Stop at 11:29 Insulin Glargine (Lantus) 15 units BID SQ ; Start 11/14/17 at 21:00 Insulin Human Lispro (HumaLOG) 10 units TIDWMEALS SQ ; Start 11/14/17 at 12:00 Clonidine HCl (Catapres) 0.1 mg PRN Q1HR PRN PO HYPERTENSION, SEE COMMENTS; Start 11/14/17 at 09:00 Active Scripts Active [Pantoprazole] 40 MG Tablet.dr 40 Mg PO DAILYAC 30 Days Amaryl (Glimepiride) 2 Mg Tablet 2 Mg PO DAILY 30 Days Reported Furosemide 80 Mg Tablet 60 Mg PO DAILY Levemir Flextouch (Insulin Detemir) 100 Unit/1 Ml Insuln.pen 32 Unit SQ BID Novolog (Insulin Aspart) 100 Unit/1 Ml Vial 20 Unit SQ TIDAC Albuterol Sulfate Conc Neb Soln (Albuterol Sulfate) 2.5 Mg/0.5 Ml Vial.neb 5 Mg NEB PRN PRN Percocet 10-325 Mg Tablet (Oxycodone/Acetaminophen) 1 Each Tablet 2 Tab PO PRN Q4HRS PRN Percocet 10-325 Mg Tablet (Oxycodone/Acetaminophen) 1 Each Tablet 1 Tab PO PRN Q4HRS PRN Losartan Potassium 50 Mg Tablet 50 Mg PO DAILY Metoprolol Tartrate 25 Mg Tablet 1 Tab PO BID Ferrous Sulfate 325 Mg Tablet 1 Tab PO DAILY NITROGLYCERIN SubLingual (Nitroglycerin) 0.4 Mg Tab.subl 0.4 Mg SL PRN Q5MIN PRN Atorvastatin Calcium 20 Mg Tablet 20 Mg PO HS Potassium Chloride 10 Meq Capsule.er 10 Meq PO BID Aspir 81 (Aspirin) 81 Mg Tablet. 1 Tab PO DAILY Clopidogrel (Clopidogrel Bisulfate) 75 Mg Tablet 1 Tab PO DAILY Vitals/I & O Vital Sign - Last 24 Hours 11/13/17 11/13/17 11/13/17 11/13/17 11:00 11:45 15:00 19:00 Temp 98.0 97.4 98.1 98.0 97.4 98.1 Pulse 63 63 60 73 Resp 16 16 20 B/P (MAP) 156/60 (92) 156/60 142/54 (83) 166/68 (100) Pulse Ox 97 96 O2 Delivery Nasal Cannula Nasal Cannula Nasal Cannula O2 Flow Rate 2.0 2.0 2.0 11/13/17 11/13/17 11/13/17 11/13/17 20:00 22:27 23:00 23:25 Temp 98.7 98.7 Pulse 80 83 Resp 18 B/P (MAP) 167/74 173/68 (103) Pulse Ox 93 97 O2 Delivery Nasal Cannula Nasal Cannula BiPAP/CPAP O2 Flow Rate 0.5 2.0 11/14/17 11/14/17 11/14/17 11/14/17 01:46 03:00 03:15 05:09 Temp 98.4 98.4 Pulse 65 Resp 18 B/P (MAP) 163/71 (101) Pulse Ox 97 95 96 97 O2 Delivery BiPAP/CPAP Nasal Cannula BiPAP/CPAP BiPAP/CPAP O2 Flow Rate 2.0 11/14/17 11/14/17 11/14/17 07:00 08:10 08:10 Temp 98.1 98.1 Pulse 60 60 60 Resp 16 B/P (MAP) 164/74 (104) 164/74 164/74 Pulse Ox 96 O2 Delivery Nasal Cannula O2 Flow Rate 0.5 Intake and Output 11/13/17 11/13/17 11/14/17 15:00 23:00 07:00 Intake Total 910 ml Output Total 300 ml 1300 ml Balance -300 ml -390 ml CATHIE KNIGHT MD Nov 14, 2017 09:59
[2017-11-14 11:00] VITALS: BP 102/87
--- NOTE | 2017-11-14 12:10 | PDOC ---
Subjective: Subjective: No GI complaints. Objective: Vital Signs: Vital Signs Date Time Temp Pulse Resp B/P (MAP) Pulse Ox O2 Delivery O2 Flow Rate FiO2 11/14/17 11:00 98.8 61 18 102/87 (92) 92 Nasal Cannula 0.5 98.8 Labs: Laboratory Tests Test 11/13/17 16:40 11/13/17 20:36 11/13/17 22:25 11/14/17 07:20 Glucose (Fingerstick) 93 mg/dL 87 mg/dL 165 mg/dL 84 mg/dL Imaging: Echocardiogram <Conclusion> There is moderate to severe concentric left ventricular hypertrophy. Due to the poor quality of the echocardiogram, an assessment of left ventricular ejection fraction cannot be assessed. The right ventricle is not well visualized but seems to be dilated. The left atrium is borderline dilated. The RA was poorly visualized The aortic valve is not well visualized. The mitral valve is not well visualized. Doppler and Color Flow revealed mild to moderate tricuspid regurgitation. There is severe pulmonary hypertension. The PA pressure was estimated at 62 mmHg. The pulmonic valve is not well visualized. There is no evidence of significant pericardial effusion. PE: GEN: NAD, using walker to transfer to chair w/ therapy LUNGS: NC HEART: RRR ABD: round NEURO/PSYCH: A & O 3 A/P: Acute resp failure/CHF HTN Known ROXANE -- Continue per other specialties. Continue PPI and iron. Outpt 'scopes - our office will arrange. SARAH HERNANDEZ Nov 14, 2017 12:10
--- NOTE | 2017-11-14 12:14 | PDOC ---
PULMONARY PROGRESS NOTES Subjective improved ABG on BIPAP all night on canula this am Vitals Vital Signs Date Time Temp Pulse Resp B/P (MAP) Pulse Ox O2 Delivery O2 Flow Rate FiO2 11/14/17 11:00 98.8 61 18 102/87 (92) 92 Nasal Cannula 0.5 98.8 General: Alert, No acute distress Lungs: Clear Cardiovascular: S1, S2 Abdomen: Soft Extremities: Other (2+edema) Labs Laboratory Tests Test 11/12/17 13:11 11/12/17 14:27 11/12/17 16:11 11/12/17 16:37 O2 Saturation 97 % (92-99) 90 % (92-99) Arterial Blood pH 7.32 (7.35-7.45) 7.39 (7.35-7.45) Arterial Blood pCO2 at Patient Temp 94 mmHg (35-46) 79 mmHg (35-46) Arterial Blood pO2 at Patient Temp 111 mmHg (65-108) 58 mmHg (65-108) Arterial Blood HCO3 48 mmol/L (21-28) 46 mmol/L (21-28) Arterial Blood Base Excess 18 mmol/L (-3-3) 18 mmol/L (-3-3) Oxyhemoglobin 96.4 % Methemoglobin 0.2 % (0.0-1.9) Carbon Monoxide, Quantitative 0.8 % (0.0-1.9) FiO2 32 Glucose (Fingerstick) 52 mg/dL (70-99) 90 mg/dL (70-99) Test 11/12/17 20:20 11/13/17 07:32 11/13/17 08:00 11/13/17 11:27 Glucose (Fingerstick) 113 mg/dL (70-99) 100 mg/dL (70-99) 110 mg/dL (70-99) O2 Saturation 97 % (92-99) Arterial Blood pH 7.36 (7.35-7.45) Arterial Blood pCO2 at Patient Temp 81 mmHg (35-46) Arterial Blood pO2 at Patient Temp 101 mmHg (65-108) Arterial Blood HCO3 44 mmol/L (21-28) Arterial Blood Base Excess 16 mmol/L (-3-3) FiO2 32 Test 11/13/17 12:00 11/13/17 16:40 11/13/17 20:36 11/13/17 22:25 O2 Saturation 93 % (92-99) Arterial Blood pH 7.37 (7.35-7.45) Arterial Blood pCO2 at Patient Temp 82 mmHg (35-46) Arterial Blood pO2 at Patient Temp 71 mmHg (65-108) Arterial Blood HCO3 47 mmol/L (21-28) Arterial Blood Base Excess 18 mmol/L (-3-3) FiO2 24 Glucose (Fingerstick) 93 mg/dL (70-99) 87 mg/dL (70-99) 165 mg/dL (70-99) Test 11/14/17 07:20 Glucose (Fingerstick) 84 mg/dL (70-99) Laboratory Tests Test 11/13/17 16:40 11/13/17 20:36 11/13/17 22:25 11/14/17 07:20 Glucose (Fingerstick) 93 mg/dL (70-99) 87 mg/dL (70-99) 165 mg/dL (70-99) 84 mg/dL (70-99) Medications Active Scripts Medications Dose Route/Sig Max Daily Dose Days Date Category [Pantoprazole] 40 MG Tablet.dr 40 Mg PO DAILYAC 30 10/29/17 Rx Furosemide 80 Mg Tablet 60 Mg PO DAILY 10/09/17 Reported Levemir Flextouch (Insulin Detemir) 100 Unit/1 Ml Insuln.pen 32 Unit SQ BID 10/07/17 Reported Novolog (Insulin Aspart) 100 Unit/1 Ml Vial 20 Unit SQ TIDAC 10/07/17 Reported Albuterol Sulfate Conc Neb Soln (Albuterol Sulfate) 2.5 Mg/0.5 Ml Vial.neb 5 Mg NEB PRN PRN 10/07/17 Reported Percocet 10-325 Mg Tablet (Oxycodone/Acetaminophen) 1 Each Tablet 2 Tab PO PRN Q4HRS PRN 10/07/17 Reported Percocet 10-325 Mg Tablet (Oxycodone/Acetaminophen) 1 Each Tablet 1 Tab PO PRN Q4HRS PRN 10/07/17 Reported Losartan Potassium 50 Mg Tablet 50 Mg PO DAILY 10/07/17 Reported Amaryl (Glimepiride) 2 Mg Tablet 2 Mg PO DAILY 30 07/04/17 Rx Metoprolol Tartrate 25 Mg Tablet 1 Tab PO BID 07/03/17 Reported Ferrous Sulfate 325 Mg Tablet 1 Tab PO DAILY 11/01/16 Reported NITROGLYCERIN SubLingual (Nitroglycerin) 0.4 Mg Tab.subl 0.4 Mg SL PRN Q5MIN PRN 11/01/16 Reported Atorvastatin Calcium 20 Mg Tablet 20 Mg PO HS 10/28/16 Reported Potassium Chloride 10 Meq Capsule.er 10 Meq PO BID 10/28/16 Reported Aspir 81 (Aspirin) 81 Mg Tablet. 1 Tab PO DAILY 10/28/16 Reported Clopidogrel (Clopidogrel Bisulfate) 75 Mg Tablet 1 Tab PO DAILY 10/28/16 Reported Impression . 1. Acute hypercapnic and hypoxic respiratory failure secondary to likely congestive heart failure. This is a patient who presents with increasing dyspnea and lower extremity edema along with the weight gain and chest x-ray more favoring congestive heart failure. The patient's proBNP was elevated as well. 2. No significant history of tobacco use. 3. Morbid obesity and history of obstructive sleep apnea, but due to noncompliance with CPAP, it was taken away by her insurance company.she would like to have another study to re-qualify 4. Fever, source not so obvious. Lacks symptoms of respiratory tract infection. fever resolved Plan . 1. Follow chest x-ray post-diuresis shows improvement 2. Oxygen at 1 litre. Avoid hyperoxia 3. Continue diuresis. 4. empiric antibiotic. 5. Follow urine cultures and blood cultures. 6. Monitor fever closely. 7. Echo 9. f/u ABG as needed 8. Discussed with RN. 9. clinically better she already has an appointment with DR Ortega as OP. sleep study as OP XENIA MARAVILLA MD Nov 14, 2017 12:14
[2017-11-14 15:00] VITALS: BP 170/56
[2017-11-14] MEDS: ACETAMINOPHEN 325 MG TABLET. PO PRN (16:11)
[2017-11-14] MEDS: LIDOCAINE (700MG/PATCH) PATCH. TD SCH (16:12)
--- NOTE | 2017-11-14 16:50 | PDOC ---
PROGRESS NOTES Subjective Subjective Pt has difficulty with O2 sats and CO2 level. Objective Objective Vital Signs Date Time Temp Pulse Resp B/P (MAP) Pulse Ox O2 Delivery O2 Flow Rate FiO2 11/14/17 15:00 98.7 67 16 170/56 (94) 96 Nasal Cannula 0.5 98.7 Intake and Output 11/14/17 07:00 Intake Total 910 ml Output Total 1600 ml Balance -690 ml Intake Oral 910 ml Output Urine Total 1600 ml # Voids 3 # Bowel Movements 1 Physical Exam Physical Exam No significant changes in exam Assessment Assessment CHF Pulmonary HTN Agree with present plan Comment Review of Relevant I have reviewed the following items nolan (where applicable) has been applied. Labs Laboratory Tests Test 11/12/17 20:20 11/13/17 07:32 11/13/17 08:00 11/13/17 11:27 Glucose (Fingerstick) 113 mg/dL (70-99) 100 mg/dL (70-99) 110 mg/dL (70-99) O2 Saturation 97 % (92-99) Arterial Blood pH 7.36 (7.35-7.45) Arterial Blood pCO2 at Patient Temp 81 mmHg (35-46) Arterial Blood pO2 at Patient Temp 101 mmHg (65-108) Arterial Blood HCO3 44 mmol/L (21-28) Arterial Blood Base Excess 16 mmol/L (-3-3) FiO2 32 Test 11/13/17 12:00 11/13/17 16:40 11/13/17 20:36 11/13/17 22:25 O2 Saturation 93 % (92-99) Arterial Blood pH 7.37 (7.35-7.45) Arterial Blood pCO2 at Patient Temp 82 mmHg (35-46) Arterial Blood pO2 at Patient Temp 71 mmHg (65-108) Arterial Blood HCO3 47 mmol/L (21-28) Arterial Blood Base Excess 18 mmol/L (-3-3) FiO2 24 Glucose (Fingerstick) 93 mg/dL (70-99) 87 mg/dL (70-99) 165 mg/dL (70-99) Test 11/14/17 07:20 11/14/17 11:45 11/14/17 12:02 Glucose (Fingerstick) 84 mg/dL (70-99) 61 mg/dL (70-99) 101 mg/dL (70-99) Laboratory Tests Test 11/13/17 20:36 11/13/17 22:25 11/14/17 07:20 11/14/17 11:45 Glucose (Fingerstick) 87 mg/dL (70-99) 165 mg/dL (70-99) 84 mg/dL (70-99) 61 mg/dL (70-99) Test 11/14/17 12:02 Glucose (Fingerstick) 101 mg/dL (70-99) Microbiology 11/12/17 Blood Culture - Preliminary, Resulted NO GROWTH AFTER 2 DAYS 11/12/17 Urine Culture - Final, Complete 11/12/17 Urine Culture Result 1 (ROB) - Final, Complete Medications Current Medications Fentanyl Citrate (Fentanyl 2ml Vial) 50 mcg 1X ONCE IV ; Start 11/10/17 at 14: 00; Stop 11/10/17 at 14:02; Status DC Ondansetron HCl (Zofran) 4 mg 1X ONCE IV ; Start 11/10/17 at 14:00; Stop at 14:02; Status DC Morphine Sulfate (Morphine Sulfate) 8 mg 1X ONCE IM Last administered on at 15:42; Start 11/10/17 at 16:00; Stop 11/10/17 at 16:01; Status DC Furosemide (Lasix) 60 mg BID92 IVP Last administered on 11/12/17at 09:14; Start 11/10/17 at 17:00; Stop 11/12/17 at 12:58; Status DC Aspirin (Ecotrin) 81 mg DAILY PO Last administered on 11/14/17at 08:10; Start at 09:00 Atorvastatin Calcium (Lipitor) 20 mg HS PO Last administered on 11/13/17at 22:26 ; Start 11/10/17 at 21:00 Clopidogrel Bisulfate (Plavix) 75 mg DAILY PO Last administered on 11/14/17at 08 :09; Start 11/11/17 at 09:00 Ferrous Sulfate (Feosol) 325 mg DAILY PO Last administered on 11/14/17at 08:10; Start 11/11/17 at 09:00 Glimepiride (Amaryl) 2 mg DAILY PO Last administered on 11/14/17at 08:09; Start 11/11/17 at 09:00 Insulin Human Lispro (HumaLOG) 20 units TIDWMEALS SQ Last administered on 08:20; Start 11/10/17 at 18:00; Stop 11/14/17 at 08:49; Status DC Losartan Potassium (Cozaar) 50 mg DAILY PO Last administered on 11/14/17 08:10 ; Start 11/11/17 at 09:00 Metoprolol Tartrate (Lopressor) 25 mg BID PO Last administered on 11/14/17 08: 10; Start 11/10/17 at 21:00 Nitroglycerin (Nitrostat) 0.4 mg PRN Q5MIN PRN SL CHEST PAIN; Start 11/10/17 at 17:15 Oxycodone/ Acetaminophen (Percocet 10/325) 1 tab PRN Q4HRS PRN PO PAIN Last administered on 11/12/17at 05:55; Start 11/10/17 at 17:15; Stop 11/12/17 at 13:11 ; Status DC Potassium Chloride (Klor-Con) 10 meq BID PO Last administered on 11/14/17 08: 09; Start 11/10/17 at 21:00 Non-Formulary Medication (Albuterol Sulfate (Albuterol Sulfate Conc Neb Soln)) 5 mg PRN PRN NEB WHEEZING; Start 11/10/17 at 17:15; Stop 11/10/17 at 17:27; Status DC Insulin Glargine (Lantus) 32 units BID SQ Last administered on 11/14/17 08:20 ; Start 11/10/17 at 21:00; Stop 11/14/17 at 08:49; Status DC Pantoprazole Sodium (Protonix) 40 mg DAILYAC PO Last administered on 11/14/17at 08:09; Start 11/11/17 at 07:30 Zolpidem Tartrate (Ambien) 5 mg PRN QHS PRN PO INSOMNIA Last administered on 22:27; Start 11/10/17 at 17:15 Ondansetron HCl (Zofran) 4 mg PRN Q8HRS PRN IV NAUSEA/VOMITING; Start 11/10/17 at 17:15; Stop 11/11/17 at 17:14; Status DC Morphine Sulfate (Morphine Sulfate) 2 mg PRN Q2HR PRN IV PAIN Last administered on 11/11/17at 13:14; Start 11/10/17 at 17:15; Stop 11/11/17 at 17:14 ; Status DC Albuterol Sulfate (Ventolin Neb Soln) 2.5 mg PRN Q6HRS PRN NEB SHORTNESS OF BREATH; Start 11/10/17 at 17:30 Furosemide (Lasix) 60 mg BID92 PO Last administered on 11/14/17at 16:11; Start 11/12/17 at 14:00 Acetaminophen (Tylenol) 650 mg PRN Q6HRS PRN PO PAIN Last administered on at 16:11; Start 11/12/17 at 13:30 Levofloxacin/ Dextrose 100 ml @ 100 mls/hr Q24H IV Last administered on at 16:12; Start 11/12/17 at 15:00 Lactobacillus Rhamnosus (Culturelle) 1 cap BID PO Last administered on at 08:09; Start 11/12/17 at 21:00 Perflutren Protein Type A Microsphe (Optison) 0.66 mg STK-MED ONCE IV ; Start at 10:39; Stop 11/13/17 at 10:40; Status DC Perflutren Protein Type A Microsphe (Optison) 0.66 mg PRN 1X PRN IV SEE COMMENTS Last administered on 11/13/17at 11:45; Start 11/13/17 at 11:30; Stop at 11:29; Status DC Insulin Glargine (Lantus) 15 units BID SQ ; Start 11/14/17 at 21:00 Insulin Human Lispro (HumaLOG) 10 units TIDWMEALS SQ ; Start 11/14/17 at 12:00 Clonidine HCl (Catapres) 0.1 mg PRN Q1HR PRN PO HYPERTENSION, SEE COMMENTS; Start 11/14/17 at 09:00 Lidocaine (Lidoderm) 1 patch DAILY TD Last administered on 11/14/17at 16:12; Start 11/14/17 at 10:30 Miscellaneous (Lidoderm Patch Removal) 1 ea QHS MC ; Start 11/14/17 at 21:00 Active Scripts Active [Pantoprazole] 40 MG Tablet.dr 40 Mg PO DAILYAC 30 Days Amaryl (Glimepiride) 2 Mg Tablet 2 Mg PO DAILY 30 Days Reported Furosemide 80 Mg Tablet 60 Mg PO DAILY Levemir Flextouch (Insulin Detemir) 100 Unit/1 Ml Insuln.pen 32 Unit SQ BID Novolog (Insulin Aspart) 100 Unit/1 Ml Vial 20 Unit SQ TIDAC Albuterol Sulfate Conc Neb Soln (Albuterol Sulfate) 2.5 Mg/0.5 Ml Vial.neb 5 Mg NEB PRN PRN Percocet 10-325 Mg Tablet (Oxycodone/Acetaminophen) 1 Each Tablet 2 Tab PO PRN Q4HRS PRN Percocet 10-325 Mg Tablet (Oxycodone/Acetaminophen) 1 Each Tablet 1 Tab PO PRN Q4HRS PRN Losartan Potassium 50 Mg Tablet 50 Mg PO DAILY Metoprolol Tartrate 25 Mg Tablet 1 Tab PO BID Ferrous Sulfate 325 Mg Tablet 1 Tab PO DAILY NITROGLYCERIN SubLingual (Nitroglycerin) 0.4 Mg Tab.subl 0.4 Mg SL PRN Q5MIN PRN Atorvastatin Calcium 20 Mg Tablet 20 Mg PO HS Potassium Chloride 10 Meq Capsule.er 10 Meq PO BID Aspir 81 (Aspirin) 81 Mg Tablet. 1 Tab PO DAILY Clopidogrel (Clopidogrel Bisulfate) 75 Mg Tablet 1 Tab PO DAILY Vitals/I & O Vital Sign - Last 24 Hours 11/13/17 11/13/17 11/13/17 11/13/17 19:00 20:00 22:27 23:00 Temp 98.1 98.7 98.1 98.7 Pulse 73 80 83 Resp 20 18 B/P (MAP) 166/68 (100) 167/74 173/68 (103) Pulse Ox 96 93 O2 Delivery Nasal Cannula Nasal Cannula Nasal Cannula O2 Flow Rate 2.0 0.5 2.0 11/13/17 11/14/17 11/14/17 11/14/17 23:25 01:46 03:00 03:15 Temp 98.4 98.4 Pulse 65 Resp 18 B/P (MAP) 163/71 (101) Pulse Ox 97 97 95 96 O2 Delivery BiPAP/CPAP BiPAP/CPAP Nasal Cannula BiPAP/CPAP O2 Flow Rate 2.0 11/14/17 11/14/17 11/14/17 11/14/17 05:09 07:00 08:00 08:10 Temp 98.1 98.1 Pulse 60 60 Resp 16 B/P (MAP) 164/74 (104) 164/74 Pulse Ox 97 96 O2 Delivery BiPAP/CPAP Nasal Cannula Nasal Cannula O2 Flow Rate 0.5 0.5 11/14/17 11/14/17 11/14/17 08:10 11:00 15:00 Temp 98.8 98.7 98.8 98.7 Pulse 60 61 67 Resp 18 16 B/P (MAP) 164/74 102/87 (92) 170/56 (94) Pulse Ox 92 96 O2 Delivery Nasal Cannula Nasal Cannula O2 Flow Rate 0.5 0.5 Intake and Output 11/13/17 11/13/17 11/14/17 15:00 23:00 07:00 Intake Total 910 ml Output Total 300 ml 1300 ml Balance -300 ml -390 ml LIZBET LINDSAY MD Nov 14, 2017 16:50
[2017-11-14 19:00] VITALS: BP 169/86
[2017-11-14] MEDS: PATCH REMOVAL. MC SCH (21:00)
[2017-11-14] MEDS: ATORVASTATIN CALCIUM 20 MG TABLET PO SCH (21:01)
[2017-11-14 22:55] VITALS: BP 152/78
[2017-11-15] VITALS (7 sets, daily range): BP systolic 121–202; BP diastolic 54–94
[2017-11-15] MEDS: ZOLPIDEM 5 MG TABLET. PO PRN ×2 (00:02→20:30)
[2017-11-15] MEDS: FERROUS SULFATE 325 MG TABLET. PO SCH (09:22)
[2017-11-15] MEDS: CLOPIDOGREL BISULFATE 75 MG TABLET PO SCH (09:22)
[2017-11-15] MEDS: GLIMEPIRIDE 2 MG TABLET. PO SCH (09:22)
[2017-11-15] MEDS: PANTOPRAZOLE 40 MG TABLET.DR. PO SCH (09:22)
[2017-11-15] MEDS: ASPIRIN ENTERIC COATED 81 MG TABLET.DR. PO SCH (09:22)
[2017-11-15] MEDS: POTASSIUM CHLORIDE 10 MEQ TABLET.ER. PO SCH ×2 (09:22→20:30)
[2017-11-15] MEDS: LACTOBACILLUS RHAMNOSUS GG 1 CAPSULE. PO SCH ×2 (09:22→20:30)
[2017-11-15] MEDS: LIDOCAINE (700MG/PATCH) PATCH. TD SCH (09:23)
[2017-11-15] MEDS: LOSARTAN POTASSIUM 50 MG TABLET. PO SCH (09:23)
[2017-11-15] MEDS: METOPROLOL TART IMMED RELEASE 25 MG TABLET. PO SCH ×2 (09:23→20:30)
[2017-11-15] MEDS: FUROSEMIDE 20 MG TABLET PO SCH ×2 (09:25→13:32)
[2017-11-15] MEDS: INSULIN LISPRO 300 UNITS/3 ML INSULN.PEN. SQ SCH ×3 (09:29→17:06)
[2017-11-15] MEDS: INSULIN GLARGINE 300 UNITS/3 ML INSULN.PEN. SQ SCH ×2 (09:35→20:31)
--- NOTE | 2017-11-15 09:57 | PDOC ---
PROGRESS NOTES Chief Complaint Chief Complaint acute on chronic combined CHF, morbid obesity, BMI 44 ANEMIA weakness and debility Dm2, insulin dependent severe hypercapnic resp failure History of Present Illness History of Present Illness ABout the same Lidoderm patch I have ordered for back pain, she was requesting Percocet from me on Friday but pulmonary DC this because of severe hypercapnic respiratory failure, needing to be on BiPAP all day long Earlier entry On the BiPAP last night Pulmonary note reviewed, needed to be on the BiPAP all day yesterday Patient requests for some Percocet again frpm me for her chronic back pain But pulmonary has stopped this because of severe hypercapnic respiratory failure -I did order a Lidoderm patch She seems a little bit more open to SNU needs this time Known to me for previous admits, frequent ones for the same Plan: Continue PT OT Will likely be here over the weekend Social work for SNU screen Lidoderm patch Hold off on any narcotics for now BiPAP when necessary Vitals Vitals Vital Signs Date Time Temp Pulse Resp B/P (MAP) Pulse Ox O2 Delivery O2 Flow Rate FiO2 11/15/17 09:23 83 195/94 11/15/17 07:00 99.0 22 100 Room Air 99.0 11/14/17 22:55 0.5 Physical Exam General: Alert, Oriented X3, Cooperative, No acute distress, mild distress Heart: Regular rate, Normal S1, Normal S2, Other (no changes in murmur) Lungs: Clear Abdomen: Normal bowel sounds, Soft Extremities: No clubbing, No cyanosis, Other (+ edema) Skin: No rashes, No significant lesion Labs LABS Laboratory Tests Test 11/14/17 11:45 11/14/17 12:02 11/14/17 17:12 11/14/17 20:35 Glucose (Fingerstick) 61 mg/dL (70-99) 101 mg/dL (70-99) 80 mg/dL (70-99) 119 mg/dL (70-99) Review of Systems Review of Systems back Pain otherwise A 14 point ROS was completed with the following noted as positive: Other systems reviewed and negative. \CONSTITUTIONAL: No fever or chills EYES: No recent changes SKIN: No rash or itching CARDIOVASCULAR: No chest pain, syncope, palpitations, or edema RESPIRATORY: No SOB or cough GASTROINTESTINAL: No nausea, vomiting or abdominal pain NEUROLOGICAL: No headaches or weakness ENDOCRINE: No cold or heat intolerance GENITOURINARY: No urgency or frequency of urination MUSCULOSKELETAL: No back pain or joint pain LYMPHATICS: No enlarged lymph nodes PSYCHIATRIC: No anxiety or depression Comment Review of Relevant I have reviewed the following items nolan (where applicable) has been applied. Labs Laboratory Tests Test 11/13/17 11:27 11/13/17 12:00 11/13/17 16:40 11/13/17 20:36 Glucose (Fingerstick) 110 mg/dL (70-99) 93 mg/dL (70-99) 87 mg/dL (70-99) O2 Saturation 93 % (92-99) Arterial Blood pH 7.37 (7.35-7.45) Arterial Blood pCO2 at Patient Temp 82 mmHg (35-46) Arterial Blood pO2 at Patient Temp 71 mmHg (65-108) Arterial Blood HCO3 47 mmol/L (21-28) Arterial Blood Base Excess 18 mmol/L (-3-3) FiO2 24 Test 11/13/17 22:25 11/14/17 07:20 11/14/17 11:45 11/14/17 12:02 Glucose (Fingerstick) 165 mg/dL (70-99) 84 mg/dL (70-99) 61 mg/dL (70-99) 101 mg/dL (70-99) Test 11/14/17 17:12 11/14/17 20:35 Glucose (Fingerstick) 80 mg/dL (70-99) 119 mg/dL (70-99) Laboratory Tests Test 11/14/17 11:45 11/14/17 12:02 11/14/17 17:12 11/14/17 20:35 Glucose (Fingerstick) 61 mg/dL (70-99) 101 mg/dL (70-99) 80 mg/dL (70-99) 119 mg/dL (70-99) Microbiology 11/12/17 Blood Culture - Preliminary, Resulted NO GROWTH AFTER 2 DAYS 11/12/17 Urine Culture - Final, Complete 11/12/17 Urine Culture Result 1 (ROB) - Final, Complete Medications Current Medications Fentanyl Citrate (Fentanyl 2ml Vial) 50 mcg 1X ONCE IV ; Start 11/10/17 at 14: 00; Stop 11/10/17 at 14:02; Status DC Ondansetron HCl (Zofran) 4 mg 1X ONCE IV ; Start 11/10/17 at 14:00; Stop at 14:02; Status DC Morphine Sulfate (Morphine Sulfate) 8 mg 1X ONCE IM Last administered on at 15:42; Start 11/10/17 at 16:00; Stop 11/10/17 at 16:01; Status DC Furosemide (Lasix) 60 mg BID92 IVP Last administered on 11/12/17at 09:14; Start 11/10/17 at 17:00; Stop 11/12/17 at 12:58; Status DC Aspirin (Ecotrin) 81 mg DAILY PO Last administered on 11/15/17 09:22; Start at 09:00 Atorvastatin Calcium (Lipitor) 20 mg HS PO Last administered on 11/14/17at 21:01 ; Start 11/10/17 at 21:00 Clopidogrel Bisulfate (Plavix) 75 mg DAILY PO Last administered on 11/15/17 09 :22; Start 11/11/17 at 09:00 Ferrous Sulfate (Feosol) 325 mg DAILY PO Last administered on 11/15/17 09:22; Start 11/11/17 at 09:00 Glimepiride (Amaryl) 2 mg DAILY PO Last administered on 11/15/17 09:22; Start 11/11/17 at 09:00 Insulin Human Lispro (HumaLOG) 20 units TIDWMEALS SQ Last administered on 08:20; Start 11/10/17 at 18:00; Stop 11/14/17 at 08:49; Status DC Losartan Potassium (Cozaar) 50 mg DAILY PO Last administered on 11/15/17at 09:23 ; Start 11/11/17 at 09:00 Metoprolol Tartrate (Lopressor) 25 mg BID PO Last administered on 11/15/17 09: 23; Start 11/10/17 at 21:00 Nitroglycerin (Nitrostat) 0.4 mg PRN Q5MIN PRN SL CHEST PAIN; Start 11/10/17 at 17:15 Oxycodone/ Acetaminophen (Percocet 10/325) 1 tab PRN Q4HRS PRN PO PAIN Last administered on 11/12/17at 05:55; Start 11/10/17 at 17:15; Stop 11/12/17 at 13:11 ; Status DC Potassium Chloride (Klor-Con) 10 meq BID PO Last administered on 11/15/17 09: 22; Start 11/10/17 at 21:00 Non-Formulary Medication (Albuterol Sulfate (Albuterol Sulfate Conc Neb Soln)) 5 mg PRN PRN NEB WHEEZING; Start 11/10/17 at 17:15; Stop 11/10/17 at 17:27; Status DC Insulin Glargine (Lantus) 32 units BID SQ Last administered on 11/14/17 08:20 ; Start 11/10/17 at 21:00; Stop 11/14/17 at 08:49; Status DC Pantoprazole Sodium (Protonix) 40 mg DAILYAC PO Last administered on 11/15/17 09:22; Start 11/11/17 at 07:30 Zolpidem Tartrate (Ambien) 5 mg PRN QHS PRN PO INSOMNIA Last administered on 00:02; Start 11/10/17 at 17:15 Ondansetron HCl (Zofran) 4 mg PRN Q8HRS PRN IV NAUSEA/VOMITING; Start 11/10/17 at 17:15; Stop 11/11/17 at 17:14; Status DC Morphine Sulfate (Morphine Sulfate) 2 mg PRN Q2HR PRN IV PAIN Last administered on 11/11/17at 13:14; Start 11/10/17 at 17:15; Stop 11/11/17 at 17:14 ; Status DC Albuterol Sulfate (Ventolin Neb Soln) 2.5 mg PRN Q6HRS PRN NEB SHORTNESS OF BREATH; Start 11/10/17 at 17:30 Furosemide (Lasix) 60 mg BID92 PO Last administered on 11/15/17 09:25; Start 11/12/17 at 14:00 Acetaminophen (Tylenol) 650 mg PRN Q6HRS PRN PO PAIN Last administered on 16:11; Start 11/12/17 at 13:30 Levofloxacin/ Dextrose 100 ml @ 100 mls/hr Q24H IV Last administered on 16:12; Start 11/12/17 at 15:00 Lactobacillus Rhamnosus (Culturelle) 1 cap BID PO Last administered on 09:22; Start 11/12/17 at 21:00 Perflutren Protein Type A Microsphe (Optison) 0.66 mg STK-MED ONCE IV ; Start at 10:39; Stop 11/13/17 at 10:40; Status DC Perflutren Protein Type A Microsphe (Optison) 0.66 mg PRN 1X PRN IV SEE COMMENTS Last administered on 11/13/17at 11:45; Start 11/13/17 at 11:30; Stop at 11:29; Status DC Insulin Glargine (Lantus) 15 units BID SQ Last administered on 11/15/17 09:35 ; Start 11/14/17 at 21:00 Insulin Human Lispro (HumaLOG) 10 units TIDWMEALS SQ Last administered on 09:29; Start 11/14/17 at 12:00 Clonidine HCl (Catapres) 0.1 mg PRN Q1HR PRN PO HYPERTENSION, SEE COMMENTS; Start 11/14/17 at 09:00 Lidocaine (Lidoderm) 1 patch DAILY TD Last administered on 11/15/17at 09:23; Start 11/14/17 at 10:30 Miscellaneous (Lidoderm Patch Removal) 1 ea QHS MC Last administered on at 21:00; Start 11/14/17 at 21:00 Active Scripts Active [Pantoprazole] 40 MG Tablet.dr 40 Mg PO DAILYAC 30 Days Amaryl (Glimepiride) 2 Mg Tablet 2 Mg PO DAILY 30 Days Reported Furosemide 80 Mg Tablet 60 Mg PO DAILY Levemir Flextouch (Insulin Detemir) 100 Unit/1 Ml Insuln.pen 32 Unit SQ BID Novolog (Insulin Aspart) 100 Unit/1 Ml Vial 20 Unit SQ TIDAC Albuterol Sulfate Conc Neb Soln (Albuterol Sulfate) 2.5 Mg/0.5 Ml Vial.neb 5 Mg NEB PRN PRN Percocet 10-325 Mg Tablet (Oxycodone/Acetaminophen) 1 Each Tablet 2 Tab PO PRN Q4HRS PRN Percocet 10-325 Mg Tablet (Oxycodone/Acetaminophen) 1 Each Tablet 1 Tab PO PRN Q4HRS PRN Losartan Potassium 50 Mg Tablet 50 Mg PO DAILY Metoprolol Tartrate 25 Mg Tablet 1 Tab PO BID Ferrous Sulfate 325 Mg Tablet 1 Tab PO DAILY NITROGLYCERIN SubLingual (Nitroglycerin) 0.4 Mg Tab.subl 0.4 Mg SL PRN Q5MIN PRN Atorvastatin Calcium 20 Mg Tablet 20 Mg PO HS Potassium Chloride 10 Meq Capsule.er 10 Meq PO BID Aspir 81 (Aspirin) 81 Mg Tablet.dr 1 Tab PO DAILY Clopidogrel (Clopidogrel Bisulfate) 75 Mg Tablet 1 Tab PO DAILY Vitals/I & O Vital Sign - Last 24 Hours 11/14/17 11/14/17 11/14/17 11/14/17 11:00 15:00 19:00 20:00 Temp 98.8 98.7 98.5 98.8 98.7 98.5 Pulse 61 67 66 Resp 18 16 20 B/P (MAP) 102/87 (92) 170/56 (94) 169/86 (113) Pulse Ox 92 96 97 O2 Delivery Nasal Cannula Nasal Cannula Nasal Cannula Nasal Cannula O2 Flow Rate 0.5 0.5 0.5 0.5 11/14/17 11/14/17 11/15/17 11/15/17 21:02 22:55 00:52 02:48 Temp 99.0 97.5 99.0 97.5 Pulse 66 57 60 Resp 21 24 B/P (MAP) 169/86 152/78 (102) 202/82 (122) Pulse Ox 96 98 99 O2 Delivery Nasal Cannula BiPAP/CPAP BiPAP/CPAP O2 Flow Rate 0.5 11/15/17 11/15/17 11/15/17 11/15/17 03:19 03:28 07:00 09:23 Temp 99.0 99.0 Pulse 60 83 83 Resp 22 B/P (MAP) 122/77 (92) 195/94 (127) 195/94 Pulse Ox 100 O2 Delivery BiPAP/CPAP Room Air 11/15/17 09:23 Pulse 83 B/P (MAP) 195/94 Intake and Output 11/14/17 11/14/17 11/15/17 15:00 23:00 07:00 Intake Total 850 ml 300 ml Output Total 1600 ml 3550 ml Balance -750 ml -3250 ml CATHIE KNIGHT MD Nov 15, 2017 09:57
--- NOTE | 2017-11-15 10:43 | PDOC ---
PULMONARY PROGRESS NOTES Subjective c/o headache no soa on canula Vitals Vital Signs Date Time Temp Pulse Resp B/P (MAP) Pulse Ox O2 Delivery O2 Flow Rate FiO2 11/15/17 09:23 83 195/94 11/15/17 07:00 99.0 22 100 Room Air 99.0 11/14/17 22:55 0.5 General: Alert, No acute distress Lungs: Clear Cardiovascular: S1, S2 Abdomen: Soft Extremities: Other (2+edema) Labs Laboratory Tests Test 11/13/17 11:27 11/13/17 12:00 11/13/17 16:40 11/13/17 20:36 Glucose (Fingerstick) 110 mg/dL (70-99) 93 mg/dL (70-99) 87 mg/dL (70-99) O2 Saturation 93 % (92-99) Arterial Blood pH 7.37 (7.35-7.45) Arterial Blood pCO2 at Patient Temp 82 mmHg (35-46) Arterial Blood pO2 at Patient Temp 71 mmHg (65-108) Arterial Blood HCO3 47 mmol/L (21-28) Arterial Blood Base Excess 18 mmol/L (-3-3) FiO2 24 Test 11/13/17 22:25 11/14/17 07:20 11/14/17 11:45 11/14/17 12:02 Glucose (Fingerstick) 165 mg/dL (70-99) 84 mg/dL (70-99) 61 mg/dL (70-99) 101 mg/dL (70-99) Test 11/14/17 17:12 11/14/17 20:35 Glucose (Fingerstick) 80 mg/dL (70-99) 119 mg/dL (70-99) Laboratory Tests Test 11/14/17 11:45 11/14/17 12:02 11/14/17 17:12 11/14/17 20:35 Glucose (Fingerstick) 61 mg/dL (70-99) 101 mg/dL (70-99) 80 mg/dL (70-99) 119 mg/dL (70-99) Medications Active Scripts Medications Dose Route/Sig Max Daily Dose Days Date Category [Pantoprazole] 40 MG Tablet.dr 40 Mg PO DAILYAC 30 10/29/17 Rx Furosemide 80 Mg Tablet 60 Mg PO DAILY 10/09/17 Reported Levemir Flextouch (Insulin Detemir) 100 Unit/1 Ml Insuln.pen 32 Unit SQ BID 10/07/17 Reported Novolog (Insulin Aspart) 100 Unit/1 Ml Vial 20 Unit SQ TIDAC 10/07/17 Reported Albuterol Sulfate Conc Neb Soln (Albuterol Sulfate) 2.5 Mg/0.5 Ml Vial.neb 5 Mg NEB PRN PRN 10/07/17 Reported Percocet 10-325 Mg Tablet (Oxycodone/Acetaminophen) 1 Each Tablet 2 Tab PO PRN Q4HRS PRN 10/07/17 Reported Percocet 10-325 Mg Tablet (Oxycodone/Acetaminophen) 1 Each Tablet 1 Tab PO PRN Q4HRS PRN 10/07/17 Reported Losartan Potassium 50 Mg Tablet 50 Mg PO DAILY 10/07/17 Reported Amaryl (Glimepiride) 2 Mg Tablet 2 Mg PO DAILY 30 07/04/17 Rx Metoprolol Tartrate 25 Mg Tablet 1 Tab PO BID 07/03/17 Reported Ferrous Sulfate 325 Mg Tablet 1 Tab PO DAILY 11/01/16 Reported NITROGLYCERIN SubLingual (Nitroglycerin) 0.4 Mg Tab.subl 0.4 Mg SL PRN Q5MIN PRN 11/01/16 Reported Atorvastatin Calcium 20 Mg Tablet 20 Mg PO HS 10/28/16 Reported Potassium Chloride 10 Meq Capsule.er 10 Meq PO BID 10/28/16 Reported Aspir 81 (Aspirin) 81 Mg Tablet.dr 1 Tab PO DAILY 10/28/16 Reported Clopidogrel (Clopidogrel Bisulfate) 75 Mg Tablet 1 Tab PO DAILY 10/28/16 Reported Impression . 1. Acute hypercapnic and hypoxic respiratory failure secondary to likely congestive heart failure. This is a patient who presents with increasing dyspnea and lower extremity edema along with the weight gain and chest x-ray more favoring congestive heart failure. The patient's proBNP was elevated as well. 2. No significant history of tobacco use. 3. Morbid obesity and history of obstructive sleep apnea, but due to noncompliance with CPAP, it was taken away by her insurance company.she would like to have another study to re-qualify 4. Fever, source not so obvious. Lacks symptoms of respiratory tract infection. fever resolved Plan . 1. Follow chest x-ray post-diuresis shows improvement 2. Oxygen at 1 litre. Avoid hyperoxia 3. Continue diuresis. 4. empiric antibiotic. 5. Follow urine cultures and blood cultures. 6. Monitor fever closely. 7. Echo report reviewed 9. f/u ABG as needed 8. Discussed with RN. 9. clinically better she already has an appointment with DR Ortega as OP. sleep study as OP XENIA MARAVILLA MD Nov 15, 2017 10:43
[2017-11-15] MEDS: ACETAMINOPHEN 325 MG TABLET. PO PRN (12:55)
--- NOTE | 2017-11-15 13:57 | PDOC ---
PROGRESS NOTES Subjective Subjective Patient complains of a headache. She also complains of weakness but is having less dyspnea. Objective Objective Vital Signs Date Time Temp Pulse Resp B/P (MAP) Pulse Ox O2 Delivery O2 Flow Rate FiO2 11/15/17 11:00 95.7 76 18 167/74 (105) 100 Room Air 95.7 11/14/17 22:55 0.5 Intake and Output 11/15/17 07:00 Intake Total 1150 ml Output Total 5150 ml Balance -4000 ml Intake Oral 1150 ml Output Urine Total 5150 ml Physical Exam Physical Exam Moving air a little better, no wheezing. No changes in heart sounds. No changes in edema. Assessment Assessment Very slow progression on this patient. I agree with present plan. Comment Review of Relevant I have reviewed the following items nolan (where applicable) has been applied. Labs Laboratory Tests Test 11/13/17 16:40 11/13/17 20:36 11/13/17 22:25 11/14/17 07:20 Glucose (Fingerstick) 93 mg/dL (70-99) 87 mg/dL (70-99) 165 mg/dL (70-99) 84 mg/dL (70-99) Test 11/14/17 11:45 11/14/17 12:02 11/14/17 17:12 11/14/17 20:35 Glucose (Fingerstick) 61 mg/dL (70-99) 101 mg/dL (70-99) 80 mg/dL (70-99) 119 mg/dL (70-99) Laboratory Tests Test 11/14/17 17:12 11/14/17 20:35 Glucose (Fingerstick) 80 mg/dL (70-99) 119 mg/dL (70-99) Microbiology 11/12/17 Blood Culture - Preliminary, Resulted NO GROWTH AFTER 2 DAYS 11/12/17 Urine Culture - Final, Complete 11/12/17 Urine Culture Result 1 (ROB) - Final, Complete Medications Current Medications Fentanyl Citrate (Fentanyl 2ml Vial) 50 mcg 1X ONCE IV ; Start 11/10/17 at 14: 00; Stop 11/10/17 at 14:02; Status DC Ondansetron HCl (Zofran) 4 mg 1X ONCE IV ; Start 11/10/17 at 14:00; Stop at 14:02; Status DC Morphine Sulfate (Morphine Sulfate) 8 mg 1X ONCE IM Last administered on 15:42; Start 11/10/17 at 16:00; Stop 11/10/17 at 16:01; Status DC Furosemide (Lasix) 60 mg BID92 IVP Last administered on 11/12/17 09:14; Start 11/10/17 at 17:00; Stop 11/12/17 at 12:58; Status DC Aspirin (Ecotrin) 81 mg DAILY PO Last administered on 11/15/17 09:22; Start at 09:00 Atorvastatin Calcium (Lipitor) 20 mg HS PO Last administered on 11/14/17 21:01 ; Start 11/10/17 at 21:00 Clopidogrel Bisulfate (Plavix) 75 mg DAILY PO Last administered on 11/15/17 09 :22; Start 11/11/17 at 09:00 Ferrous Sulfate (Feosol) 325 mg DAILY PO Last administered on 11/15/17 09:22; Start 11/11/17 at 09:00 Glimepiride (Amaryl) 2 mg DAILY PO Last administered on 11/15/17 09:22; Start 11/11/17 at 09:00 Insulin Human Lispro (HumaLOG) 20 units TIDWMEALS SQ Last administered on 08:20; Start 11/10/17 at 18:00; Stop 11/14/17 at 08:49; Status DC Losartan Potassium (Cozaar) 50 mg DAILY PO Last administered on 11/15/17 09:23 ; Start 11/11/17 at 09:00 Metoprolol Tartrate (Lopressor) 25 mg BID PO Last administered on 11/15/17 09: 23; Start 11/10/17 at 21:00 Nitroglycerin (Nitrostat) 0.4 mg PRN Q5MIN PRN SL CHEST PAIN; Start 11/10/17 at 17:15 Oxycodone/ Acetaminophen (Percocet 10/325) 1 tab PRN Q4HRS PRN PO PAIN Last administered on 11/12/17 05:55; Start 11/10/17 at 17:15; Stop 11/12/17 at 13:11 ; Status DC Potassium Chloride (Klor-Con) 10 meq BID PO Last administered on 8/25/18at 09: 22; Start 11/10/17 at 21:00 Non-Formulary Medication (Albuterol Sulfate (Albuterol Sulfate Conc Neb Soln)) 5 mg PRN PRN NEB WHEEZING; Start 11/10/17 at 17:15; Stop 11/10/17 at 17:27; Status DC Insulin Glargine (Lantus) 32 units BID SQ Last administered on 11/14/17 08:20 ; Start 11/10/17 at 21:00; Stop 11/14/17 at 08:49; Status DC Pantoprazole Sodium (Protonix) 40 mg DAILYAC PO Last administered on 11/15/17 09:22; Start 11/11/17 at 07:30 Zolpidem Tartrate (Ambien) 5 mg PRN QHS PRN PO INSOMNIA Last administered on 00:02; Start 11/10/17 at 17:15 Ondansetron HCl (Zofran) 4 mg PRN Q8HRS PRN IV NAUSEA/VOMITING; Start 11/10/17 at 17:15; Stop 11/11/17 at 17:14; Status DC Morphine Sulfate (Morphine Sulfate) 2 mg PRN Q2HR PRN IV PAIN Last administered on 11/11/17at 13:14; Start 11/10/17 at 17:15; Stop 11/11/17 at 17:14 ; Status DC Albuterol Sulfate (Ventolin Neb Soln) 2.5 mg PRN Q6HRS PRN NEB SHORTNESS OF BREATH; Start 11/10/17 at 17:30 Furosemide (Lasix) 60 mg BID92 PO Last administered on 11/15/17at 13:32; Start 11/12/17 at 14:00 Acetaminophen (Tylenol) 650 mg PRN Q6HRS PRN PO PAIN Last administered on 12:55; Start 11/12/17 at 13:30 Levofloxacin/ Dextrose 100 ml @ 100 mls/hr Q24H IV Last administered on 16:12; Start 11/12/17 at 15:00 Lactobacillus Rhamnosus (Culturelle) 1 cap BID PO Last administered on at 09:22; Start 11/12/17 at 21:00 Perflutren Protein Type A Microsphe (Optison) 0.66 mg [employer]-MED ONCE IV ; Start at 10:39; Stop 11/13/17 at 10:40; Status DC Perflutren Protein Type A Microsphe (Optison) 0.66 mg PRN 1X PRN IV SEE COMMENTS Last administered on 11/13/17at 11:45; Start 11/13/17 at 11:30; Stop at 11:29; Status DC Insulin Glargine (Lantus) 15 units BID SQ Last administered on 11/15/17at 09:35 ; Start 11/14/17 at 21:00 Insulin Human Lispro (HumaLOG) 10 units TIDWMEALS SQ Last administered on at 12:59; Start 11/14/17 at 12:00 Clonidine HCl (Catapres) 0.1 mg PRN Q1HR PRN PO HYPERTENSION, SEE COMMENTS; Start 11/14/17 at 09:00 Lidocaine (Lidoderm) 1 patch DAILY TD Last administered on 11/15/17at 09:23; Start 11/14/17 at 10:30 Miscellaneous (Lidoderm Patch Removal) 1 ea QHS MC Last administered on at 21:00; Start 11/14/17 at 21:00 Active Scripts Active [Pantoprazole] 40 MG Tablet.dr 40 Mg PO DAILYAC 30 Days Amaryl (Glimepiride) 2 Mg Tablet 2 Mg PO DAILY 30 Days Reported Furosemide 80 Mg Tablet 60 Mg PO DAILY Levemir Flextouch (Insulin Detemir) 100 Unit/1 Ml Insuln.pen 32 Unit SQ BID Novolog (Insulin Aspart) 100 Unit/1 Ml Vial 20 Unit SQ TIDAC Albuterol Sulfate Conc Neb Soln (Albuterol Sulfate) 2.5 Mg/0.5 Ml Vial.neb 5 Mg NEB PRN PRN Percocet 10-325 Mg Tablet (Oxycodone/Acetaminophen) 1 Each Tablet 2 Tab PO PRN Q4HRS PRN Percocet 10-325 Mg Tablet (Oxycodone/Acetaminophen) 1 Each Tablet 1 Tab PO PRN Q4HRS PRN Losartan Potassium 50 Mg Tablet 50 Mg PO DAILY Metoprolol Tartrate 25 Mg Tablet 1 Tab PO BID Ferrous Sulfate 325 Mg Tablet 1 Tab PO DAILY NITROGLYCERIN SubLingual (Nitroglycerin) 0.4 Mg Tab.subl 0.4 Mg SL PRN Q5MIN PRN Atorvastatin Calcium 20 Mg Tablet 20 Mg PO HS Potassium Chloride 10 Meq Capsule.er 10 Meq PO BID Aspir 81 (Aspirin) 81 Mg Tablet.dr 1 Tab PO DAILY Clopidogrel (Clopidogrel Bisulfate) 75 Mg Tablet 1 Tab PO DAILY Vitals/I & O Vital Sign - Last 24 Hours 11/14/17 11/14/17 11/14/17 11/14/17 15:00 19:00 20:00 21:02 Temp 98.7 98.5 98.7 98.5 Pulse 67 66 66 Resp 16 20 B/P (MAP) 170/56 (94) 169/86 (113) 169/86 Pulse Ox 96 97 O2 Delivery Nasal Cannula Nasal Cannula Nasal Cannula O2 Flow Rate 0.5 0.5 0.5 11/14/17 11/15/17 11/15/17 11/15/17 22:55 00:52 02:48 03:19 Temp 99.0 97.5 99.0 97.5 Pulse 57 60 Resp 21 24 B/P (MAP) 152/78 (102) 202/82 (122) Pulse Ox 96 98 99 O2 Delivery Nasal Cannula BiPAP/CPAP BiPAP/CPAP BiPAP/CPAP O2 Flow Rate 0.5 11/15/17 11/15/17 11/15/17 11/15/17 03:28 07:00 09:23 09:23 Temp 99.0 99.0 Pulse 60 83 83 83 Resp 22 B/P (MAP) 122/77 (92) 195/94 (127) 195/94 195/94 Pulse Ox 100 O2 Delivery Room Air 11/15/17 11:00 Temp 95.7 95.7 Pulse 76 Resp 18 B/P (MAP) 167/74 (105) Pulse Ox 100 O2 Delivery Room Air Intake and Output 11/14/17 11/14/17 11/15/17 15:00 23:00 07:00 Intake Total 850 ml 300 ml Output Total 1600 ml 3550 ml Balance -750 ml -3250 ml LIZBET LINDSAY MD Nov 15, 2017 13:57
[2017-11-15] MEDS: ATORVASTATIN CALCIUM 20 MG TABLET PO SCH (20:30)
[2017-11-15] MEDS: PATCH REMOVAL. MC SCH (20:32)
[2017-11-16 02:43] VITALS: BP 154/61
[2017-11-16 07:00] VITALS: BP 180/67
[2017-11-16] MEDS: ASPIRIN ENTERIC COATED 81 MG TABLET.DR. PO SCH (08:21)
[2017-11-16] MEDS: LACTOBACILLUS RHAMNOSUS GG 1 CAPSULE. PO SCH ×2 (08:21→20:39)
[2017-11-16] MEDS: PANTOPRAZOLE 40 MG TABLET.DR. PO SCH (08:22)
[2017-11-16] MEDS: FERROUS SULFATE 325 MG TABLET. PO SCH ×2 (08:22→15:33)
[2017-11-16] MEDS: CLOPIDOGREL BISULFATE 75 MG TABLET PO SCH (08:22)
[2017-11-16] MEDS: POTASSIUM CHLORIDE 10 MEQ TABLET.ER. PO SCH ×2 (08:22→20:39)
[2017-11-16] MEDS: GLIMEPIRIDE 2 MG TABLET. PO SCH (08:22)
[2017-11-16] MEDS: METOPROLOL TART IMMED RELEASE 25 MG TABLET. PO SCH ×2 (08:23→20:40)
[2017-11-16] MEDS: LOSARTAN POTASSIUM 50 MG TABLET. PO SCH (08:23)
[2017-11-16] MEDS: FUROSEMIDE 20 MG TABLET PO SCH ×2 (08:23→15:39)
[2017-11-16] MEDS: LIDOCAINE (700MG/PATCH) PATCH. TD SCH (08:24)
[2017-11-16] MEDS: INSULIN LISPRO 300 UNITS/3 ML INSULN.PEN. SQ SCH ×3 (08:29→17:16)
[2017-11-16] MEDS: INSULIN GLARGINE 300 UNITS/3 ML INSULN.PEN. SQ SCH ×2 (08:30→20:41)
--- NOTE | 2017-11-16 11:02 | PDOC ---
PROGRESS NOTES Chief Complaint Chief Complaint acute on chronic combined CHF, morbid obesity, BMI 44 ANEMIA weakness and debility Dm2, insulin dependent severe hypercapnic resp failure History of Present Illness History of Present Illness Requests for some Percocet, because of chronic back pain This was stopped because of severe hypercapnic respiratory failure Needing BiPAP overnight, was just on home O2 at home Respiratory beck continues to do better Agreeable to SNU cleared from pulmo Plan: Social work for SNU tomorrow-she finally agrees to this Trial of Percocet just a low-dose 1 tab by mouth every 4-6 hours when necessary Already on Lidoderm patch Name discharge tomorrow to SNU Appreciate pulmonary, already has an appointment with Dr. Ortega We will need the BiPAP or CPAP Only on home O2 at home Vitals Vitals Vital Signs Date Time Temp Pulse Resp B/P (MAP) Pulse Ox O2 Delivery O2 Flow Rate FiO2 11/16/17 08:23 71 180/67 11/16/17 07:00 99.7 18 94 Room Air 99.7 11/15/17 19:50 0.5 Physical Exam General: Alert, Oriented X3, Cooperative, No acute distress, mild distress Heart: Regular rate, Normal S1, Normal S2, Other (no changes in murmur) Lungs: Clear Abdomen: Normal bowel sounds, Soft Extremities: No clubbing, No cyanosis, Other (+ edema) Skin: No rashes, No significant lesion Labs LABS Laboratory Tests Test 11/15/17 12:36 11/15/17 16:49 11/15/17 20:04 11/16/17 07:30 Glucose (Fingerstick) 128 mg/dL (70-99) 138 mg/dL (70-99) 112 mg/dL (70-99) 123 mg/dL (70-99) Review of Systems Review of Systems Back pain otherwise the rest of ROS 14 point negative Comment Review of Relevant I have reviewed the following items nolan (where applicable) has been applied. Labs Laboratory Tests Test 11/14/17 11:45 11/14/17 12:02 11/14/17 17:12 11/14/17 20:35 Glucose (Fingerstick) 61 mg/dL (70-99) 101 mg/dL (70-99) 80 mg/dL (70-99) 119 mg/dL (70-99) Test 11/15/17 12:36 11/15/17 16:49 11/15/17 20:04 11/16/17 07:30 Glucose (Fingerstick) 128 mg/dL (70-99) 138 mg/dL (70-99) 112 mg/dL (70-99) 123 mg/dL (70-99) Laboratory Tests Test 11/15/17 12:36 11/15/17 16:49 11/15/17 20:04 11/16/17 07:30 Glucose (Fingerstick) 128 mg/dL (70-99) 138 mg/dL (70-99) 112 mg/dL (70-99) 123 mg/dL (70-99) Microbiology 11/12/17 Blood Culture - Preliminary, Resulted NO GROWTH AFTER 3 DAYS 11/12/17 Urine Culture - Final, Complete 11/12/17 Urine Culture Result 1 (ROB) - Final, Complete Medications Current Medications Fentanyl Citrate (Fentanyl 2ml Vial) 50 mcg 1X ONCE IV ; Start 11/10/17 at 14: 00; Stop 11/10/17 at 14:02; Status DC Ondansetron HCl (Zofran) 4 mg 1X ONCE IV ; Start 11/10/17 at 14:00; Stop at 14:02; Status DC Morphine Sulfate (Morphine Sulfate) 8 mg 1X ONCE IM Last administered on at 15:42; Start 11/10/17 at 16:00; Stop 11/10/17 at 16:01; Status DC Furosemide (Lasix) 60 mg BID92 IVP Last administered on 11/12/17at 09:14; Start 11/10/17 at 17:00; Stop 11/12/17 at 12:58; Status DC Aspirin (Ecotrin) 81 mg DAILY PO Last administered on 11/16/17at 08:21; Start at 09:00 Atorvastatin Calcium (Lipitor) 20 mg HS PO Last administered on 11/15/17at 20:30 ; Start 11/10/17 at 21:00 Clopidogrel Bisulfate (Plavix) 75 mg DAILY PO Last administered on 11/16/17at 08 :22; Start 11/11/17 at 09:00 Ferrous Sulfate (Feosol) 325 mg DAILY PO Last administered on 11/16/17at 08:22; Start 11/11/17 at 09:00 Glimepiride (Amaryl) 2 mg DAILY PO Last administered on 11/16/17 08:22; Start 11/11/17 at 09:00 Insulin Human Lispro (HumaLOG) 20 units TIDWMEALS SQ Last administered on 08:20; Start 11/10/17 at 18:00; Stop 11/14/17 at 08:49; Status DC Losartan Potassium (Cozaar) 50 mg DAILY PO Last administered on 11/16/17 08:23 ; Start 11/11/17 at 09:00 Metoprolol Tartrate (Lopressor) 25 mg BID PO Last administered on 11/16/17 08: 23; Start 11/10/17 at 21:00 Nitroglycerin (Nitrostat) 0.4 mg PRN Q5MIN PRN SL CHEST PAIN; Start 11/10/17 at 17:15 Oxycodone/ Acetaminophen (Percocet 10/325) 1 tab PRN Q4HRS PRN PO PAIN Last administered on 11/12/17at 05:55; Start 11/10/17 at 17:15; Stop 11/12/17 at 13:11 ; Status DC Potassium Chloride (Klor-Con) 10 meq BID PO Last administered on 11/16/17 08: 22; Start 11/10/17 at 21:00 Non-Formulary Medication (Albuterol Sulfate (Albuterol Sulfate Conc Neb Soln)) 5 mg PRN PRN NEB WHEEZING; Start 11/10/17 at 17:15; Stop 11/10/17 at 17:27; Status DC Insulin Glargine (Lantus) 32 units BID SQ Last administered on 11/14/17 08:20 ; Start 11/10/17 at 21:00; Stop 11/14/17 at 08:49; Status DC Pantoprazole Sodium (Protonix) 40 mg DAILYAC PO Last administered on 11/16/17 08:22; Start 11/11/17 at 07:30 Zolpidem Tartrate (Ambien) 5 mg PRN QHS PRN PO INSOMNIA Last administered on 20:30; Start 11/10/17 at 17:15 Ondansetron HCl (Zofran) 4 mg PRN Q8HRS PRN IV NAUSEA/VOMITING; Start 11/10/17 at 17:15; Stop 11/11/17 at 17:14; Status DC Morphine Sulfate (Morphine Sulfate) 2 mg PRN Q2HR PRN IV PAIN Last administered on 11/11/17at 13:14; Start 11/10/17 at 17:15; Stop 11/11/17 at 17:14 ; Status DC Albuterol Sulfate (Ventolin Neb Soln) 2.5 mg PRN Q6HRS PRN NEB SHORTNESS OF BREATH; Start 11/10/17 at 17:30 Furosemide (Lasix) 60 mg BID92 PO Last administered on 11/16/17at 08:23; Start 11/12/17 at 14:00 Acetaminophen (Tylenol) 650 mg PRN Q6HRS PRN PO PAIN Last administered on at 12:55; Start 11/12/17 at 13:30 Levofloxacin/ Dextrose 100 ml @ 100 mls/hr Q24H IV Last administered on at 15:29; Start 11/12/17 at 15:00 Lactobacillus Rhamnosus (Culturelle) 1 cap BID PO Last administered on at 08:21; Start 11/12/17 at 21:00 Perflutren Protein Type A Microsphe (Optison) 0.66 mg [facility]-MED ONCE IV ; Start at 10:39; Stop 11/13/17 at 10:40; Status DC Perflutren Protein Type A Microsphe (Optison) 0.66 mg PRN 1X PRN IV SEE COMMENTS Last administered on 11/13/17at 11:45; Start 11/13/17 at 11:30; Stop at 11:29; Status DC Insulin Glargine (Lantus) 15 units BID SQ Last administered on 11/16/17at 08:30 ; Start 11/14/17 at 21:00 Insulin Human Lispro (HumaLOG) 10 units TIDWMEALS SQ Last administered on at 08:29; Start 11/14/17 at 12:00 Clonidine HCl (Catapres) 0.1 mg PRN Q1HR PRN PO HYPERTENSION, SEE COMMENTS; Start 11/14/17 at 09:00 Lidocaine (Lidoderm) 1 patch DAILY TD Last administered on 11/16/17at 08:24; Start 11/14/17 at 10:30 Miscellaneous (Lidoderm Patch Removal) 1 ea QHS MC Last administered on at 20:32; Start 11/14/17 at 21:00 Active Scripts Active [Pantoprazole] 40 MG Tablet.dr 40 Mg PO DAILYAC 30 Days Amaryl (Glimepiride) 2 Mg Tablet 2 Mg PO DAILY 30 Days Reported Furosemide 80 Mg Tablet 60 Mg PO DAILY Levemir Flextouch (Insulin Detemir) 100 Unit/1 Ml Insuln.pen 32 Unit SQ BID Novolog (Insulin Aspart) 100 Unit/1 Ml Vial 20 Unit SQ TIDAC Albuterol Sulfate Conc Neb Soln (Albuterol Sulfate) 2.5 Mg/0.5 Ml Vial.neb 5 Mg NEB PRN PRN Percocet 10-325 Mg Tablet (Oxycodone/Acetaminophen) 1 Each Tablet 2 Tab PO PRN Q4HRS PRN Percocet 10-325 Mg Tablet (Oxycodone/Acetaminophen) 1 Each Tablet 1 Tab PO PRN Q4HRS PRN Losartan Potassium 50 Mg Tablet 50 Mg PO DAILY Metoprolol Tartrate 25 Mg Tablet 1 Tab PO BID Ferrous Sulfate 325 Mg Tablet 1 Tab PO DAILY NITROGLYCERIN SubLingual (Nitroglycerin) 0.4 Mg Tab.subl 0.4 Mg SL PRN Q5MIN PRN Atorvastatin Calcium 20 Mg Tablet 20 Mg PO HS Potassium Chloride 10 Meq Capsule.er 10 Meq PO BID Aspir 81 (Aspirin) 81 Mg Tablet. 1 Tab PO DAILY Clopidogrel (Clopidogrel Bisulfate) 75 Mg Tablet 1 Tab PO DAILY Vitals/I & O Vital Sign - Last 24 Hours 11/15/17 11/15/17 11/15/17 11/15/17 15:00 19:00 19:50 20:30 Temp 98.9 98.9 Pulse 82 79 79 Resp 18 20 B/P (MAP) 147/64 (91) 165/63 (97) 165/63 Pulse Ox 100 96 O2 Delivery Nasal Cannula Nasal Cannula O2 Flow Rate 0.5 11/15/17 11/15/17 11/16/17 11/16/17 22:39 22:50 01:11 02:43 Temp 98.1 98.4 98.1 98.4 Pulse 76 61 Resp 19 24 B/P (MAP) 121/54 (76) 154/61 (92) Pulse Ox 97 94 O2 Delivery BiPAP/CPAP Nasal Cannula BiPAP/CPAP BiPAP/CPAP 11/16/17 11/16/17 11/16/17 11/16/17 03:40 06:06 07:00 08:23 Temp 99.7 99.7 Pulse 71 71 Resp 18 B/P (MAP) 180/67 (104) 180/67 Pulse Ox 94 O2 Delivery BiPAP/CPAP BiPAP/CPAP Room Air 11/16/17 08:23 Pulse 71 B/P (MAP) 180/67 Intake and Output 11/15/17 11/15/17 11/16/17 15:00 23:00 07:00 Intake Total 380 ml 200 ml Output Total 200 ml 2400 ml 350 ml Balance -200 ml -2020 ml -150 ml CATHIE KNIGHT MD Nov 16, 2017 11:02
--- NOTE | 2017-11-16 11:14 | PDOC ---
PULMONARY PROGRESS NOTES Subjective c/o less headache no soa on canula Vitals Vital Signs Date Time Temp Pulse Resp B/P (MAP) Pulse Ox O2 Delivery O2 Flow Rate FiO2 11/16/17 08:23 71 180/67 11/16/17 07:00 99.7 18 94 Room Air 99.7 11/15/17 19:50 0.5 General: Alert, No acute distress Lungs: Clear Cardiovascular: S1, S2 Abdomen: Soft, Other (obese) Extremities: Other (2+edema) Labs Laboratory Tests Test 11/14/17 11:45 11/14/17 12:02 11/14/17 17:12 11/14/17 20:35 Glucose (Fingerstick) 61 mg/dL (70-99) 101 mg/dL (70-99) 80 mg/dL (70-99) 119 mg/dL (70-99) Test 11/15/17 12:36 11/15/17 16:49 11/15/17 20:04 11/16/17 07:30 Glucose (Fingerstick) 128 mg/dL (70-99) 138 mg/dL (70-99) 112 mg/dL (70-99) 123 mg/dL (70-99) Test 11/16/17 10:49 Glucose (Fingerstick) 115 mg/dL (70-99) Laboratory Tests Test 11/15/17 12:36 11/15/17 16:49 11/15/17 20:04 11/16/17 07:30 Glucose (Fingerstick) 128 mg/dL (70-99) 138 mg/dL (70-99) 112 mg/dL (70-99) 123 mg/dL (70-99) Test 11/16/17 10:49 Glucose (Fingerstick) 115 mg/dL (70-99) Medications Active Scripts Medications Dose Route/Sig Max Daily Dose Days Date Category [Pantoprazole] 40 MG Tablet.dr 40 Mg PO DAILYAC 30 10/29/17 Rx Furosemide 80 Mg Tablet 60 Mg PO DAILY 10/09/17 Reported Levemir Flextouch (Insulin Detemir) 100 Unit/1 Ml Insuln.pen 32 Unit SQ BID 10/07/17 Reported Novolog (Insulin Aspart) 100 Unit/1 Ml Vial 20 Unit SQ TIDAC 10/07/17 Reported Albuterol Sulfate Conc Neb Soln (Albuterol Sulfate) 2.5 Mg/0.5 Ml Vial.neb 5 Mg NEB PRN PRN 10/07/17 Reported Percocet 10-325 Mg Tablet (Oxycodone/Acetaminophen) 1 Each Tablet 2 Tab PO PRN Q4HRS PRN 10/07/17 Reported Percocet 10-325 Mg Tablet (Oxycodone/Acetaminophen) 1 Each Tablet 1 Tab PO PRN Q4HRS PRN 10/07/17 Reported Losartan Potassium 50 Mg Tablet 50 Mg PO DAILY 10/07/17 Reported Amaryl (Glimepiride) 2 Mg Tablet 2 Mg PO DAILY 30 07/04/17 Rx Metoprolol Tartrate 25 Mg Tablet 1 Tab PO BID 07/03/17 Reported Ferrous Sulfate 325 Mg Tablet 1 Tab PO DAILY 11/01/16 Reported NITROGLYCERIN SubLingual (Nitroglycerin) 0.4 Mg Tab.subl 0.4 Mg SL PRN Q5MIN PRN 11/01/16 Reported Atorvastatin Calcium 20 Mg Tablet 20 Mg PO HS 10/28/16 Reported Potassium Chloride 10 Meq Capsule.er 10 Meq PO BID 10/28/16 Reported Aspir 81 (Aspirin) 81 Mg Tablet. 1 Tab PO DAILY 10/28/16 Reported Clopidogrel (Clopidogrel Bisulfate) 75 Mg Tablet 1 Tab PO DAILY 10/28/16 Reported Impression . 1. Acute hypercapnic and hypoxic respiratory failure secondary to likely congestive heart failure. This is a patient who presents with increasing dyspnea and lower extremity edema along with the weight gain and chest x-ray more favoring congestive heart failure. The patient's proBNP was elevated as well. 2. No significant history of tobacco use. 3. Morbid obesity and history of obstructive sleep apnea, but due to noncompliance with CPAP, it was taken away by her insurance company.she would like to have another study to re-qualify 4. Fever POA. Low grade now .source not so obvious. Lacks symptoms of respiratory tract infection. On Abx Plan . 1. Follow chest x-ray post-diuresis shows improvement. 2. Oxygen at 1 litre. Avoid hyperoxia 3. Continue diuresis. 4. empiric antibiotic.Monitor fever 5. Follow urine cultures and blood cultures. 6. Monitor fever closely. 7. Echo report reviewed 9. f/u ABG as needed 8. Discussed with RN. 9. clinically better she already has an appointment with DR Ortega as OP. sleep study as OP MARAVILLA,XENIA U MD Nov 16, 2017 11:14
[2017-11-16 11:23] VITALS: BP 166/67
[2017-11-16] MEDS: oxyCODONE/APAP 5/325 1 TAB TABLET PO PRN ×3 (11:24→22:46)
--- NOTE | 2017-11-16 15:37 | PDOC ---
PROGRESS NOTES Subjective Subjective Feels better today. Objective Objective Vital Signs Date Time Temp Pulse Resp B/P (MAP) Pulse Ox O2 Delivery O2 Flow Rate FiO2 11/16/17 12:24 18 94 Nasal Cannula 0.5 11/16/17 11:23 97.7 61 166/67 (100) 97.7 Intake and Output 11/16/17 07:00 Intake Total 580 ml Output Total 2950 ml Balance -2370 ml Intake Oral 580 ml Output Urine Total 2950 ml # Voids 4 # Bowel Movements 1 Physical Exam Physical Exam Moving air better Assessment Assessment Patient slowly improving. I agree with possible discharge to SNU Comment Review of Relevant I have reviewed the following items nolan (where applicable) has been applied. Labs Laboratory Tests Test 11/14/17 17:12 11/14/17 20:35 11/15/17 12:36 11/15/17 16:49 Glucose (Fingerstick) 80 mg/dL (70-99) 119 mg/dL (70-99) 128 mg/dL (70-99) 138 mg/dL (70-99) Test 11/15/17 20:04 11/16/17 07:30 11/16/17 10:49 Glucose (Fingerstick) 112 mg/dL (70-99) 123 mg/dL (70-99) 115 mg/dL (70-99) Laboratory Tests Test 11/15/17 16:49 11/15/17 20:04 11/16/17 07:30 11/16/17 10:49 Glucose (Fingerstick) 138 mg/dL (70-99) 112 mg/dL (70-99) 123 mg/dL (70-99) 115 mg/dL (70-99) Microbiology 11/12/17 Blood Culture - Preliminary, Resulted NO GROWTH AFTER 4 DAYS 11/12/17 Urine Culture - Final, Complete 11/12/17 Urine Culture Result 1 (ROB) - Final, Complete Medications Current Medications Fentanyl Citrate (Fentanyl 2ml Vial) 50 mcg 1X ONCE IV ; Start 11/10/17 at 14: 00; Stop 11/10/17 at 14:02; Status DC Ondansetron HCl (Zofran) 4 mg 1X ONCE IV ; Start 11/10/17 at 14:00; Stop at 14:02; Status DC Morphine Sulfate (Morphine Sulfate) 8 mg 1X ONCE IM Last administered on 15:42; Start 11/10/17 at 16:00; Stop 11/10/17 at 16:01; Status DC Furosemide (Lasix) 60 mg BID92 IVP Last administered on 11/12/17 09:14; Start 11/10/17 at 17:00; Stop 11/12/17 at 12:58; Status DC Aspirin (Ecotrin) 81 mg DAILY PO Last administered on 11/16/17 08:21; Start at 09:00 Atorvastatin Calcium (Lipitor) 20 mg HS PO Last administered on 11/15/17 20:30 ; Start 11/10/17 at 21:00 Clopidogrel Bisulfate (Plavix) 75 mg DAILY PO Last administered on 11/16/17 08 :22; Start 11/11/17 at 09:00 Ferrous Sulfate (Feosol) 325 mg DAILY PO Last administered on 11/16/17 15:33; Start 11/11/17 at 09:00 Glimepiride (Amaryl) 2 mg DAILY PO Last administered on 11/16/17 08:22; Start 11/11/17 at 09:00 Insulin Human Lispro (HumaLOG) 20 units TIDWMEALS SQ Last administered on 08:20; Start 11/10/17 at 18:00; Stop 11/14/17 at 08:49; Status DC Losartan Potassium (Cozaar) 50 mg DAILY PO Last administered on 11/16/17 08:23 ; Start 11/11/17 at 09:00 Metoprolol Tartrate (Lopressor) 25 mg BID PO Last administered on 11/16/17 08: 23; Start 11/10/17 at 21:00 Nitroglycerin (Nitrostat) 0.4 mg PRN Q5MIN PRN SL CHEST PAIN; Start 11/10/17 at 17:15 Oxycodone/ Acetaminophen (Percocet 10/325) 1 tab PRN Q4HRS PRN PO PAIN Last administered on 11/12/17 05:55; Start 11/10/17 at 17:15; Stop 11/12/17 at 13:11 ; Status DC Potassium Chloride (Klor-Con) 10 meq BID PO Last administered on 11/16/17 08: 22; Start 11/10/17 at 21:00 Non-Formulary Medication (Albuterol Sulfate (Albuterol Sulfate Conc Neb Soln)) 5 mg PRN PRN NEB WHEEZING; Start 11/10/17 at 17:15; Stop 11/10/17 at 17:27; Status DC Insulin Glargine (Lantus) 32 units BID SQ Last administered on 11/14/17 08:20 ; Start 11/10/17 at 21:00; Stop 11/14/17 at 08:49; Status DC Pantoprazole Sodium (Protonix) 40 mg DAILYAC PO Last administered on 11/16/17at 08:22; Start 11/11/17 at 07:30 Zolpidem Tartrate (Ambien) 5 mg PRN QHS PRN PO INSOMNIA Last administered on at 20:30; Start 11/10/17 at 17:15 Ondansetron HCl (Zofran) 4 mg PRN Q8HRS PRN IV NAUSEA/VOMITING; Start 11/10/17 at 17:15; Stop 11/11/17 at 17:14; Status DC Morphine Sulfate (Morphine Sulfate) 2 mg PRN Q2HR PRN IV PAIN Last administered on 11/11/17at 13:14; Start 11/10/17 at 17:15; Stop 11/11/17 at 17:14 ; Status DC Albuterol Sulfate (Ventolin Neb Soln) 2.5 mg PRN Q6HRS PRN NEB SHORTNESS OF BREATH; Start 11/10/17 at 17:30 Furosemide (Lasix) 60 mg BID92 PO Last administered on 11/16/17at 08:23; Start 11/12/17 at 14:00 Acetaminophen (Tylenol) 650 mg PRN Q6HRS PRN PO PAIN Last administered on at 12:55; Start 11/12/17 at 13:30 Levofloxacin/ Dextrose 100 ml @ 100 mls/hr Q24H IV Last administered on at 15:33; Start 11/12/17 at 15:00 Lactobacillus Rhamnosus (Culturelle) 1 cap BID PO Last administered on at 08:21; Start 11/12/17 at 21:00 Perflutren Protein Type A Microsphe (Optison) 0.66 mg STK-MED ONCE IV ; Start at 10:39; Stop 11/13/17 at 10:40; Status DC Perflutren Protein Type A Microsphe (Optison) 0.66 mg PRN 1X PRN IV SEE COMMENTS Last administered on 11/13/17at 11:45; Start 11/13/17 at 11:30; Stop at 11:29; Status DC Insulin Glargine (Lantus) 15 units BID SQ Last administered on 11/16/17at 08:30 ; Start 11/14/17 at 21:00 Insulin Human Lispro (HumaLOG) 10 units TIDWMEALS SQ Last administered on at 11:26; Start 11/14/17 at 12:00 Clonidine HCl (Catapres) 0.1 mg PRN Q1HR PRN PO HYPERTENSION, SEE COMMENTS; Start 11/14/17 at 09:00 Lidocaine (Lidoderm) 1 patch DAILY TD Last administered on 11/16/17at 08:24; Start 11/14/17 at 10:30 Miscellaneous (Lidoderm Patch Removal) 1 ea QHS MC Last administered on at 20:32; Start 11/14/17 at 21:00 Oxycodone/ Acetaminophen (Percocet 5/325) 1 tab PRN Q4HRS PRN PO PAIN Last administered on 11/16/17at 11:24; Start 11/16/17 at 11:00 Active Scripts Active [Pantoprazole] 40 MG Tablet.dr 40 Mg PO DAILYAC 30 Days Amaryl (Glimepiride) 2 Mg Tablet 2 Mg PO DAILY 30 Days Reported Furosemide 80 Mg Tablet 60 Mg PO DAILY Levemir Flextouch (Insulin Detemir) 100 Unit/1 Ml Insuln.pen 32 Unit SQ BID Novolog (Insulin Aspart) 100 Unit/1 Ml Vial 20 Unit SQ TIDAC Albuterol Sulfate Conc Neb Soln (Albuterol Sulfate) 2.5 Mg/0.5 Ml Vial.neb 5 Mg NEB PRN PRN Percocet 10-325 Mg Tablet (Oxycodone/Acetaminophen) 1 Each Tablet 2 Tab PO PRN Q4HRS PRN Percocet 10-325 Mg Tablet (Oxycodone/Acetaminophen) 1 Each Tablet 1 Tab PO PRN Q4HRS PRN Losartan Potassium 50 Mg Tablet 50 Mg PO DAILY Metoprolol Tartrate 25 Mg Tablet 1 Tab PO BID Ferrous Sulfate 325 Mg Tablet 1 Tab PO DAILY NITROGLYCERIN SubLingual (Nitroglycerin) 0.4 Mg Tab.subl 0.4 Mg SL PRN Q5MIN PRN Atorvastatin Calcium 20 Mg Tablet 20 Mg PO HS Potassium Chloride 10 Meq Capsule.er 10 Meq PO BID Aspir 81 (Aspirin) 81 Mg Tablet. 1 Tab PO DAILY Clopidogrel (Clopidogrel Bisulfate) 75 Mg Tablet 1 Tab PO DAILY Vitals/I & O Vital Sign - Last 24 Hours 11/15/17 11/15/17 11/15/17 11/15/17 19:00 19:50 20:30 22:39 Temp 98.9 98.9 Pulse 79 79 Resp 20 B/P (MAP) 165/63 (97) 165/63 Pulse Ox 96 O2 Delivery Nasal Cannula Nasal Cannula BiPAP/CPAP O2 Flow Rate 0.5 11/15/17 11/16/17 11/16/17 11/16/17 22:50 01:11 02:43 03:40 Temp 98.1 98.4 98.1 98.4 Pulse 76 61 Resp 19 24 B/P (MAP) 121/54 (76) 154/61 (92) Pulse Ox 97 94 O2 Delivery Nasal Cannula BiPAP/CPAP BiPAP/CPAP BiPAP/CPAP 11/16/17 11/16/17 11/16/17 11/16/17 06:06 07:00 08:00 08:23 Temp 99.7 99.7 Pulse 71 71 Resp 18 B/P (MAP) 180/67 (104) 180/67 Pulse Ox 94 O2 Delivery BiPAP/CPAP Room Air Nasal Cannula O2 Flow Rate 0.5 11/16/17 11/16/17 11/16/17 11/16/17 08:23 11:23 11:24 12:24 Temp 97.7 97.7 Pulse 71 61 Resp 18 18 18 B/P (MAP) 180/67 166/67 (100) Pulse Ox 95 94 94 O2 Delivery Room Air Nasal Cannula Nasal Cannula O2 Flow Rate 0.5 0.5 Intake and Output 11/15/17 11/15/17 11/16/17 15:00 23:00 07:00 Intake Total 380 ml 200 ml Output Total 200 ml 2400 ml 350 ml Balance -200 ml -2020 ml -150 ml LIZBET LINDSAY MD Nov 16, 2017 15:37
[2017-11-16 15:53] VITALS: BP 156/62
[2017-11-16 19:00] VITALS: BP 155/68
[2017-11-16] MEDS: ZOLPIDEM 5 MG TABLET. PO PRN (20:39)
[2017-11-16] MEDS: ATORVASTATIN CALCIUM 20 MG TABLET PO SCH (20:39)
[2017-11-16] MEDS: PATCH REMOVAL. MC SCH (20:46)
[2017-11-16 22:48] VITALS: BP 186/54
[2017-11-17 03:00] VITALS: BP 181/57
[2017-11-17] MEDS: oxyCODONE/APAP 5/325 1 TAB TABLET PO PRN ×4 (03:23→16:08)
[2017-11-17 07:00] VITALS: BP 182/67
[2017-11-17] MEDS: INSULIN LISPRO 300 UNITS/3 ML INSULN.PEN. SQ SCH ×2 (08:00→12:43)
[2017-11-17] MEDS: FUROSEMIDE 20 MG TABLET PO SCH ×2 (08:30→16:06)
[2017-11-17] MEDS: GLIMEPIRIDE 2 MG TABLET. PO SCH (08:30)
[2017-11-17] MEDS: CLOPIDOGREL BISULFATE 75 MG TABLET PO SCH (08:30)
[2017-11-17] MEDS: ASPIRIN ENTERIC COATED 81 MG TABLET.DR. PO SCH (08:30)
[2017-11-17] MEDS: POTASSIUM CHLORIDE 10 MEQ TABLET.ER. PO SCH (08:30)
[2017-11-17] MEDS: LACTOBACILLUS RHAMNOSUS GG 1 CAPSULE. PO SCH (08:30)
[2017-11-17] MEDS: LOSARTAN POTASSIUM 50 MG TABLET. PO SCH (08:30)
[2017-11-17] MEDS: PANTOPRAZOLE 40 MG TABLET.DR. PO SCH (08:31)
[2017-11-17] MEDS: METOPROLOL TART IMMED RELEASE 25 MG TABLET. PO SCH (08:31)
[2017-11-17] MEDS: LIDOCAINE (700MG/PATCH) PATCH. TD SCH (08:32)
[2017-11-17] MEDS: INSULIN GLARGINE 300 UNITS/3 ML INSULN.PEN. SQ SCH (08:38)
[2017-11-17] MEDS ORDERED: OXYC-323 PO (08:42)
[2017-11-17] MEDS ORDERED: INSU100V13 SQ (08:48)
[2017-11-17] MEDS ORDERED: INSU100I17 SQ (08:48)
--- NOTE | 2017-11-17 09:10 | PDOC ---
PULMONARY PROGRESS NOTES Subjective PT FEELS BETTER LESS SOA Vitals Vital Signs Date Time Temp Pulse Resp B/P (MAP) Pulse Ox O2 Delivery O2 Flow Rate FiO2 11/17/17 08:31 58 182/67 11/17/17 08:29 Nasal Cannula 2.5 11/17/17 07:00 98.0 20 98 98.0 General: Alert, No acute distress Lungs: Clear Cardiovascular: S1, S2 Abdomen: Soft, Other (obese) Extremities: Other (2+edema) Labs Laboratory Tests Test 11/15/17 12:36 11/15/17 16:49 11/15/17 20:04 11/16/17 07:30 Glucose (Fingerstick) 128 mg/dL (70-99) 138 mg/dL (70-99) 112 mg/dL (70-99) 123 mg/dL (70-99) Test 11/16/17 10:49 11/16/17 16:23 11/16/17 20:33 11/17/17 07:38 Glucose (Fingerstick) 115 mg/dL (70-99) 104 mg/dL (70-99) 139 mg/dL (70-99) 99 mg/dL (70-99) Laboratory Tests Test 11/16/17 10:49 11/16/17 16:23 11/16/17 20:33 11/17/17 07:38 Glucose (Fingerstick) 115 mg/dL (70-99) 104 mg/dL (70-99) 139 mg/dL (70-99) 99 mg/dL (70-99) Medications Active Scripts Medications Dose Route/Sig Max Daily Dose Days Date Category [Pantoprazole] 40 MG Tablet.dr 40 Mg PO DAILYAC 30 10/29/17 Rx Furosemide 80 Mg Tablet 60 Mg PO DAILY 10/09/17 Reported Levemir Flextouch (Insulin Detemir) 100 Unit/1 Ml Insuln.pen 32 Unit SQ BID 10/07/17 Reported Novolog (Insulin Aspart) 100 Unit/1 Ml Vial 20 Unit SQ TIDAC 10/07/17 Reported Albuterol Sulfate Conc Neb Soln (Albuterol Sulfate) 2.5 Mg/0.5 Ml Vial.neb 5 Mg NEB PRN PRN 10/07/17 Reported Percocet 10-325 Mg Tablet (Oxycodone/Acetaminophen) 1 Each Tablet 2 Tab PO PRN Q4HRS PRN 10/07/17 Reported Percocet 10-325 Mg Tablet (Oxycodone/Acetaminophen) 1 Each Tablet 1 Tab PO PRN Q4HRS PRN 10/07/17 Reported Losartan Potassium 50 Mg Tablet 50 Mg PO DAILY 10/07/17 Reported Amaryl (Glimepiride) 2 Mg Tablet 2 Mg PO DAILY 30 07/04/17 Rx Metoprolol Tartrate 25 Mg Tablet 1 Tab PO BID 07/03/17 Reported Ferrous Sulfate 325 Mg Tablet 1 Tab PO DAILY 11/01/16 Reported NITROGLYCERIN SubLingual (Nitroglycerin) 0.4 Mg Tab.subl 0.4 Mg SL PRN Q5MIN PRN 11/01/16 Reported Atorvastatin Calcium 20 Mg Tablet 20 Mg PO HS 10/28/16 Reported Potassium Chloride 10 Meq Capsule.er 10 Meq PO BID 10/28/16 Reported Aspir 81 (Aspirin) 81 Mg Tablet.dr 1 Tab PO DAILY 10/28/16 Reported Clopidogrel (Clopidogrel Bisulfate) 75 Mg Tablet 1 Tab PO DAILY 10/28/16 Reported Impression . 1. Acute hypercapnic and hypoxic respiratory failure secondary to likely congestive heart failure 2. No significant history of tobacco use. 3. Morbid obesity and history of obstructive sleep apnea, but due to noncompliance with CPAP, it was taken away by her insurance company.she would like to have another study to re-qualify 4. Fever POA. Low grade now .source not so obvious. Lacks symptoms of respiratory tract infection. On Abx Plan . PT HAS HOME 02 D/C HOME PT HAS APPT WITH ME NEXT WEEK SET UP OUTP SLEEP STUDY LYNN BISHOP MD Nov 17, 2017 09:10
--- NOTE | 2017-11-17 10:01 | PDOC3 ---
Discharge Summary Visit Information Date of Admission: Nov 10, 2017 Date of Discharge: Nov 17, 2017 Admitting Diagnosis Comment: acute on chronic combined CHF, morbid obesity, BMI 44 ANEMIA weakness and debility Dm2, insulin dependent severe hypercapnic resp failure Brief Hospital Course Allergies Allergies Coded Allergies Type Severity Reaction Last Updated Verified No Known Drug Allergies 08/01/13 No Vital Signs Vital Signs Date Time Temp Pulse Resp B/P (MAP) Pulse Ox O2 Delivery O2 Flow Rate FiO2 11/17/17 08:31 58 182/67 11/17/17 08:29 Nasal Cannula 2.5 11/17/17 07:00 98.0 20 98 98.0 Lab Results Laboratory Tests Test 11/15/17 12:36 11/15/17 16:49 11/15/17 20:04 11/16/17 07:30 Glucose (Fingerstick) 128 mg/dL (70-99) 138 mg/dL (70-99) 112 mg/dL (70-99) 123 mg/dL (70-99) Test 11/16/17 10:49 11/16/17 16:23 11/16/17 20:33 11/17/17 07:38 Glucose (Fingerstick) 115 mg/dL (70-99) 104 mg/dL (70-99) 139 mg/dL (70-99) 99 mg/dL (70-99) Laboratory Tests Test 11/16/17 10:49 11/16/17 16:23 11/16/17 20:33 11/17/17 07:38 Glucose (Fingerstick) 115 mg/dL (70-99) 104 mg/dL (70-99) 139 mg/dL (70-99) 99 mg/dL (70-99) Brief Hospital Course Ms. Laguna is a 62 old [place] female with chronic back pain, on narcotics at home, admitted because of severe hypercapnic respiratory failure needing BiPAP in the ICU. She has morbid obesity and possibly pickwickian syndrome. It was quite remarkable course that she could she could not get off the BiPAP. We are able to do that now- was on home O2 when necessary but now needing O2 24/7. We are working on SNU but seems like having trouble with insurance. Might be able to go home with just home health. 6 minute walk pending but I have prepared scripts. Advised against narcotics. Comanage with pulmonary. NOn smoker, Procedures none aside from BiPAP. Other comorbidities include diabetes type 2, hypertension, acute on chronic combined CHF which seems to be compensated in this admission. Time spent discharging 31 minutes greater than 50% coordinating discharge etc. Mar on chart, Rx on chart. Avoid too much narcotics Lidoderm rx onc grey Discharge Information Condition at Discharge: Improved, Stable Disposition/Orders: D/C to Home w/ HH Scheduled Aspirin (Aspir 81) 81 Mg Tablet.dr, 1 TAB PO DAILY, #30 Ref 5 (Reported) Entered as Reported by: FIFI WALSH on 10/28/16 1058 Last Action: Continued on 11/10/171712 by LÓPEZ BARRIOS Atorvastatin Calcium (Atorvastatin Calcium) 20 Mg Tablet, 20 MG PO HS for FOR CHOLESTEROL, #30 Ref 0 (Reported) Entered as Reported by: FIFI WALSH on 10/28/16 1108 Last Action: Continued on 11/10/171712 by LÓPEZ BARRIOS Clopidogrel Bisulfate (Clopidogrel) 75 Mg Tablet, 1 TAB PO DAILY, #90 Ref 1 ( Reported) Entered as Reported by: FIFI WALSH on 10/28/16 1058 Last Action: Continued on 11/10/171712 by LÓPEZ BARRIOS Ferrous Sulfate (Ferrous Sulfate) 325 Mg Tablet, 1 TAB PO DAILY, #30 Ref 3 ( Reported) Entered as Reported by: LOYDA CELAYA on 11/01/16 0014 Last Action: Continued on 11/10/171712 by LÓPEZ BARRIOS Furosemide (Furosemide) 80 Mg Tablet, 60 MG PO DAILY, (Reported) Entered as Reported by: NAM MORTENSEN on 10/09/17 1408 Last Action: HELD on 11/10/171713 by LÓPEZ BARRIOS Glimepiride (Amaryl) 2 Mg Tablet, 2 MG PO DAILY for 30 Days, #30 Prescribed by: RADHA PIERRE MD on 07/04/17 1010 Last Action: Continued on 11/10/171713 by LÓPEZ BARRIOS Insulin Aspart (Novolog) 100 Unit/1 Ml Vial, 20 UNIT SQ TIDAC, (Reported) Entered as Reported by: ROMY PHEALN on 10/07/172035 Last Action: Continued on 11/10/171713 by LÓPEZ BARRIOS Insulin Detemir (Levemir Flextouch) 100 Unit/1 Ml Insuln.pen, 32 UNIT SQ BID, ( Reported) Entered as Reported by: ROMY PHELAN on 10/07/172035 Last Action: Converted on 11/10/171713 by LÓPEZ BARRIOS Losartan Potassium (Losartan Potassium) 50 Mg Tablet, 50 MG PO DAILY, (Reported) Entered as Reported by: ROMY PHELAN on 10/07/172035 Last Action: Continued on 11/10/171713 by LÓPEZ BARRIOS Metoprolol Tartrate (Metoprolol Tartrate) 25 Mg Tablet, 1 TAB PO BID, #180 Ref 1 (Reported) Entered as Reported by: MAXI MARIA on 07/03/17 161 Last Action: Continued on 11/10/171713 by LÓPEZ BARRIOS Oxycodone/Apap 5-325 (Percocet 5-325 Mg Tablet) 1 Each Tablet, 1 TAB PO QID, # 120 Prescribed by: CATHIE KNIGHT on 11/17/17 0842 Potassium Chloride (Potassium Chloride) 10 Meq Capsule.er, 10 MEQ PO BID, ( Reported) Entered as Reported by: FIFI WALSH on 10/28/16 1108 Last Action: Continued on 11/10/171712 by LÓPEZ BARRIOS [Pantoprazole] 40 MG TABLET.DR, 40 MG PO DAILYAC for 30 Days Prescribed by: RADHA PIERRE MD on 10/29/17 0935 Last Action: Converted on 11/10/171713 by LÓPEZ BARRIOS Scheduled PRN Albuterol Sulfate (Albuterol Sulfate Conc Neb Soln) 2.5 Mg/0.5 Ml Vial.neb, 5 MG NEB PRN PRN for WHEEZING, Ref 0 (Reported) Entered as Reported by: ROMY PHELAN on 10/07/172035 Last Action: Converted on 11/10/171713 by LÓPEZ BARRIOS Nitroglycerin (NITROGLYCERIN SubLingual) 0.4 Mg Tab.subl, 0.4 MG SL PRN Q5MIN PRN for CHEST PAIN, (Reported) Entered as Reported by: LOYDA CELAYA on 11/01/16 0013 Last Action: Continued on 11/10/171712 by LÓPEZ BARRIOS Oxycodone/Apap 10-325 (Percocet 10-325 Mg Tablet) 1 Each Tablet, 1 TAB PO PRN Q4HRS PRN for PAIN, Ref 0 (Reported) Entered as Reported by: ROMY PHELAN on 10/07/172035 Last Action: Continued on 11/10/171713 by LÓPEZ BARRIOS Oxycodone/Apap 10-325 (Percocet 10-325 Mg Tablet) 1 Each Tablet, 2 TAB PO PRN Q4HRS PRN for PAIN, Ref 0 (Reported) Entered as Reported by: ROMY PHELAN on 10/07/172035 Last Action: HELD on 11/10/171713 by CATHIE CARRASCO MD Nov 17, 2017 10:01
[2017-11-17 11:00] VITALS: BP 150/59
--- NOTE | 2017-11-17 12:24 | PDOC ---
Subjective: Subjective: Walking halls w/ RT - no GI complaints. Objective: Vital Signs: Vital Signs Date Time Temp Pulse Resp B/P (MAP) Pulse Ox O2 Delivery O2 Flow Rate FiO2 11/17/17 11:00 98.0 60 20 150/59 (89) 99 Nasal Cannula 4.0 98.0 Labs: Laboratory Tests Test 11/16/17 16:23 11/16/17 20:33 11/17/17 07:38 11/17/17 11:07 Glucose (Fingerstick) 104 mg/dL 139 mg/dL 99 mg/dL 114 mg/dL PE: GEN: NAD LUNGS: on O2 w/ RT while walking NEURO/PSYCH: A & O 3 A/P: Acute resp failure ROXANE -- Note possible DC today. Outpt scopes when able - our office will arrange. Continue PPI. SARAH HERNANDEZ Nov 17, 2017 12:24
== END 2017-11-17 16:25 | disposition home health service (06) | DRG 291 ==
LOC: ER 13:47 → ED HOLD 16:35 → 5 SOUTH 23:24
PROVIDERS: ADMIT Internal Medicine; ATTEND Internal Medicine
PROC: 5A09357 Assistance with Respiratory Ventilation, Less than 24 Consecutive Hours, Continuous Positive Airway Pressure (ICD-10-PCS; principal; 2017-11-12)
PROC: 5A09357 Assistance with Respiratory Ventilation, Less than 24 Consecutive Hours, Continuous Positive Airway Pressure (ICD-10-PCS; 2017-11-13)
PROC: 02HV33Z Insertion of Infusion Device into Superior Vena Cava, Percutaneous Approach (ICD-10-PCS; 2017-11-13)
PROC: 5A09357 Assistance with Respiratory Ventilation, Less than 24 Consecutive Hours, Continuous Positive Airway Pressure (ICD-10-PCS; 2017-11-14)
PROC: 5A09357 Assistance with Respiratory Ventilation, Less than 24 Consecutive Hours, Continuous Positive Airway Pressure (ICD-10-PCS; 2017-11-15)
PROC: 5A09357 Assistance with Respiratory Ventilation, Less than 24 Consecutive Hours, Continuous Positive Airway Pressure (ICD-10-PCS; 2017-11-16)
PROC: 5A09357 Assistance with Respiratory Ventilation, Less than 24 Consecutive Hours, Continuous Positive Airway Pressure (ICD-10-PCS; 2017-11-17)
DX: I13.0 Hypertensive heart and chronic kidney disease with heart failure and stage 1 through stage 4 chronic kidney disease, or unspecified chronic kidney disease (principal); I50.43 Acute on chronic combined systolic (congestive) and diastolic (congestive) heart failure; J96.22 Acute and chronic respiratory failure with hypercapnia; J96.21 Acute and chronic respiratory failure with hypoxia; E66.2 Morbid (severe) obesity with alveolar hypoventilation; Z68.41 Body mass index [BMI] 40.0-44.9, adult; I25.10 Atherosclerotic heart disease of native coronary artery without angina pectoris; N18.9 Chronic kidney disease, unspecified; E78.00 Pure hypercholesterolemia, unspecified; E11.22 Type 2 diabetes mellitus with diabetic chronic kidney disease; G89.29 Other chronic pain; G62.9 Polyneuropathy, unspecified; M54.5 Low back pain; Z96.659 Presence of unspecified artificial knee joint; J44.9 Chronic obstructive pulmonary disease, unspecified; K21.9 Gastro-esophageal reflux disease without esophagitis; M19.90 Unspecified osteoarthritis, unspecified site; D50.9 Iron deficiency anemia, unspecified; F41.9 Anxiety disorder, unspecified; I27.20 Pulmonary hypertension, unspecified; E78.5 Hyperlipidemia, unspecified; Z95.0 Presence of cardiac pacemaker; Z90.710 Acquired absence of both cervix and uterus; Z83.3 Family history of diabetes mellitus; Z95.1 Presence of aortocoronary bypass graft; Z91.19 Patient's noncompliance with other medical treatment and regimen; Z79.82 Long term (current) use of aspirin; Z79.4 Long term (current) use of insulin; Z82.49 Family history of ischemic heart disease and other diseases of the circulatory system
CPT/HCPCS: 99285; C8929; 36415; 36569; 36600; 71045; 71046; 80048; 80053; 82805; 82962; 83540; 83550; 83880; 84443; 84484; 85025; 85045; 87040; 87086; 93005; 94618; 94660; 96372; J1815; J1940; J1956; J2270; Q9956; 97110; 97116; 97530; 97535

== ENCOUNTER 2017-12-02 18:42 | Emergency (ER) | payer OTHER ==
[~2017-12-02] VITALS: Ht 162.6 cm; Wt 104.3 kg
[~2017-12-02 18:42] MED LIST changes: -AMLO5TAB2 PO; +AMLO5TAB7 PO; -LOSA100T6 PO; +LOSA100T7 PO; -LOSA50TA6 PO; +LOSA50TA7 PO; +OXYC-323 PO
--- NOTE | 2017-12-02 18:53 | PHYS DOC ---
Past Medical History Past Medical History: CAD, Diabetes-Type II, High Cholesterol, Heart Disease, Hypertension, [place], Other Additional Past Medical Histor: neuropathy, SLEEP APNEA, CHRONIC BACK PAIN Past Surgical History: Angioplasty, Cholecystectomy, Coronary Bypass Surgery, Hysterectomy, Knee Replacement, Pacemaker, Other Additional Past Surgical Histo: HERNIA, breast reduction, L KNEE Alcohol Use: None Drug Use: None Adult General Chief Complaint Chief Complaint: CHEST PAIN [facility] Patient is a 62 year old female who presents with left sided chest and shoulder pain that started after doing laundry. She states that yesterday she was doing laundry and felt a pain in her shoulder and left chest. She states that the pain comes when she uses her left arm and moves that portion of her body. She denies previous episodes that are identical in character but states that she has had a long history of retrosternal pain that had turned out to be cardiac. She states that she has a history of coronary artery bypass grafting as well as COPD. She admits to mild nausea but denies any vomiting. She denies any clear exertional worsening of her discomfort. She denies any fevers, chills , vomiting, abdominal pain, tearing-type pain, focal neurologic deficits, headache or any other complaints. Review of Systems Review of Systems Constitutional: Denies fever or chills Eyes: Denies change in visual acuity, redness, or eye pain HENT: Denies nasal congestion or sore throat Respiratory: Denies cough or shortness of breath Cardiovascular: No additional information not addressed in HPI GI: Denies abdominal pain, nausea, vomiting, bloody stools or diarrhea : Denies dysuria or hematuria Integument: Denies rash or skin lesions Neurologic: Denies headache, focal weakness or sensory changes Endocrine: Denies polyuria or polydipsia All other systems were reviewed and found to be within normal limits, except as documented in this note. Family History Family History noncontributory Allergies Allergies Allergies Coded Allergies Type Severity Reaction Last Updated Verified ibuprofen Adverse Reaction Intermediate Nausea and Vomiting 12/02/17 Yes Physical Exam Physical Exam GENERAL: Awake, alert, well appearing, nontoxic HEAD/NECK/EYES: Normocephalic, Neck supple, PERRL , trachea midline, no JVD ENT Airway patent, mucous membranes moist RESP: Nontachypneic, no respiratory distress, normal breath sounds bilaterally CV: Regular rhythm, normal perfusion ABD/GI: Soft, non-tender, no guarding, no rebound, no palpable pulsatile mass BACK: Inspection NL EXT: Neurovascularly intact, no deformities, chief complaint is reproduced with palpation of the left chest wall and the left supraspinatus muscle belly, chief complaint is also reproduced when patient abducts the shoulder against resistance when her hand is internally rotated, which is consistent with rotator cuff syndrome involving pectoralis as well as supraspinatus muscles SKIN: Warm, dry NEURO: Oriented X3, normal speech, no motor deficits, no sensory deficits, CN II - XII intact PSYCH: Cooperative, appropriate affect Current Patient Data Vital Signs Vital Signs Date Time Temp Pulse Resp B/P (MAP) Pulse Ox O2 Delivery O2 Flow Rate FiO2 12/02/17 18:45 98.0 78 18 212/87 (128) 92 Room Air 98.0 EKG EKG [] Radiology/Procedures Radiology/Procedures [] Course & Med Decision Making Course & Med Decision Making Pertinent Labs and Imaging studies reviewed. (See chart for details) Differential diagnosis considerations include but are not limited to: Rotator cuff syndrome is very evident on physical exam, this is likely the etiology of patient's presentation to the emergency department. However, she does have very significant risk factors and therefore requires cardiac evaluation. One troponin should be very sensitive given timeframe of complaints. Dragon Disclaimer Dragon Disclaimer This electronic medical record was generated, in whole or in part, using a voice recognition dictation system. Departure Departure Impression: Primary Impression: Strain of tendon of left rotator cuff Additional Impressions: Tenderness of chest wall Retrosternal chest pain Condition: STABLE Referrals: NO PCP (PCP) Problem Qualifiers ISAURA KLINE DO Dec 02, 2017 18:53
[2017-12-02] MEDS ORDERED: fentaNYL PF VIAL 100 MCG/2 ML VIAL IV ONE (19:15)
[2017-12-02] MEDS ORDERED: ONDANSETRON PF 4 MG/2 ML VIAL. IV ONE (19:15)
[2017-12-02 19:21] LABS: BASO # 0.1 x10^3/uL (0.0-0.2); BASO % 1 % (0-3); EOS # 0.1 x10^3/uL (0.0-0.7); EOS % 1 % (0-3); HEMATOCRIT 37.3 % (36.0-47.0); HEMOGLOBIN 12.3 g/dL (12.0-15.5); LYMPH # 1.7 x10^3/uL (1.0-4.8); LYMPH % 17 % (24-48); MEAN CORPUSCULAR HEMOGLOBIN 27 pg (25-35); MEAN CORPUSCULAR HGB CONC 33 g/dL (31-37); MEAN CORPUSCULAR VOLUME 83 fL (79-100); MONO # 0.8 x10^3/uL (0.0-1.1); MONO % 8 % (0-9); NEUT # 7.5 x10^3uL (1.8-7.7); NEUT % 74 % (31-73); PLATELET COUNT 296 x10^3/uL (140-400); RED BLOOD COUNT 4.47 x10^6/uL (3.50-5.40); RED CELL DISTRIBUTION WIDTH 17.3 % (11.5-14.5); WHITE BLOOD COUNT 10.2 x10^3/uL (4.0-11.0)
[2017-12-02 19:31] LABS: CALCIUM 9.8 mg/dL (8.5-10.1); GFR 67.8; POTASSIUM 3.5 mmol/L (3.5-5.1)
[2017-12-02 19:36] LABS: ALBUMIN 3.4 g/dL (3.4-5.0); ALBUMIN/GLOBULIN RATIO 0.7 (1.0-1.7); TOTAL BILIRUBIN 0.3 mg/dL (0.2-1.0); TOTAL PROTEIN 8.5 g/dL (6.4-8.2)
[2017-12-02] MEDS ORDERED: methylPREDNISolone SOD SUCC PF 125 MG/2 ML VIAL. IV ONE (20:00)
[2017-12-02] MEDS ORDERED: MORPHINE SULFATE 4 MG/ML VIAL. ONE (20:24)
[2017-12-02] MEDS ORDERED: MORPHINE SULFATE 4 MG/ML VIAL. IV ONE (20:30)
[2017-12-02] MEDS ORDERED: hydrALAZINE 25 MG TABLET PO SCH (21:00)
[2017-12-02 21:15] VITALS: BP 180/76
--- NOTE | 2017-12-02 23:29 | RAD ---
Indication:PT STATES CHEST PAIN, SOB, X2 DAYS ALSO HX OF COPD TECHNIQUE:Portable AP chest X-ray COMPARISON: 11/13/2017 FINDINGS: Median sternotomy. Stable position of cardiac pacer with its leads projecting over the heart. Heart is mildly enlarged in size. Lungs are clear. No pneumothorax or pleural effusion. Visualized bony thorax within normal limits. IMPRESSION: No acute pulmonary process. Electronically signed by: Fede Purvis DO (12/02/2017 11:25 PM) [facility]
--- NOTE | 2017-12-03 07:12 | EKG ---
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
== END 2017-12-02 21:29 | disposition home or self-care (01) ==
LOC: ER 18:42
DX: S46.012A Strain of muscle(s) and tendon(s) of the rotator cuff of left shoulder, initial encounter (principal); R07.2 Precordial pain; E78.00 Pure hypercholesterolemia, unspecified; I25.10 Atherosclerotic heart disease of native coronary artery without angina pectoris; I11.9 Hypertensive heart disease without heart failure; I25.2 Old myocardial infarction; E11.40 Type 2 diabetes mellitus with diabetic neuropathy, unspecified; G89.29 Other chronic pain; Z95.5 Presence of coronary angioplasty implant and graft; Z95.1 Presence of aortocoronary bypass graft; Z95.0 Presence of cardiac pacemaker; Z88.8 Allergy status to other drugs, medicaments and biological substances; X50.9XXA Other and unspecified overexertion or strenuous movements or postures, initial encounter; Y93.89 Activity, other specified; Y92.89 Other specified places as the place of occurrence of the external cause; Y99.8 Other external cause status
CPT/HCPCS: 36415; 71045; 80053; 83690; 84484; 85025; 93005; 96374; 96375; 99285; J2270; J2405; J2930; J3010

== ENCOUNTER 2017-12-06 18:28 | Inpatient (IN) | payer OTHER ==
[~2017-12-06] VITALS: Ht 162.6 cm; Wt 108.0 kg
[2017-12-06] MEDS ORDERED: ASPIRIN CHEWABLE 81 MG TABLET. PO ONE (19:00)
[2017-12-06 19:05] LABS: BASO # 0.1 x10^3/uL (0.0-0.2); BASO % 1 % (0-3); EOS # 0.1 x10^3/uL (0.0-0.7); EOS % 1 % (0-3); HEMATOCRIT 36.5 % (36.0-47.0); LYMPH % 22 % (24-48); MEAN CORPUSCULAR HEMOGLOBIN 27 pg (25-35); MEAN CORPUSCULAR HGB CONC 33 g/dL (31-37); MEAN CORPUSCULAR VOLUME 84 fL (79-100); MONO # 0.6 x10^3/uL (0.0-1.1); MONO % 7 % (0-9); NEUT # 6.2 x10^3uL (1.8-7.7); NEUT % 69 % (31-73); PLATELET COUNT 311 x10^3/uL (140-400); RED BLOOD COUNT 4.37 x10^6/uL (3.50-5.40); RED CELL DISTRIBUTION WIDTH 16.1 % (11.5-14.5); WHITE BLOOD COUNT 8.9 x10^3/uL (4.0-11.0)
[2017-12-06 19:11] LABS: PROTHROMBIN TIME PATIENT 12.7 SEC (11.7-14.0)
[2017-12-06 19:14] LABS: CALCIUM 9.2 mg/dL (8.5-10.1); GFR 67.8; POTASSIUM 3.7 mmol/L (3.5-5.1)
[2017-12-06 19:20] LABS: ALBUMIN 3.1 g/dL (3.4-5.0); ALBUMIN/GLOBULIN RATIO 0.7 (1.0-1.7); MAGNESIUM 2.4 mg/dL (1.8-2.4); TOTAL BILIRUBIN 0.1 mg/dL (0.2-1.0); TOTAL PROTEIN 7.8 g/dL (6.4-8.2)
[2017-12-06 19:28] LABS: CREATINE KINASE 45 U/L (26-192)
[2017-12-06] MEDS ORDERED: fentaNYL PF VIAL 100 MCG/2 ML VIAL IV ONE ×2 (19:30→22:00)
[2017-12-06] MEDS ORDERED: NITROGLYCERIN OINT 1 GM PACKET. TP ONE (19:30)
--- NOTE | 2017-12-06 19:48 | PHYS DOC ---
Past Medical History Past Medical History: CHF, COPD, Diabetes-Type II, Hypertension, CA, Other Additional Past Medical Histor: O2 DEPENDENT 3 L PRN Past Surgical History: Cholecystectomy, Coronary Bypass Surgery, Hysterectomy, Knee Replacement, Pacemaker, Other Additional Past Surgical Histo: STENTS Alcohol Use: None Drug Use: None Adult General Chief Complaint Chief Complaint: CHEST PAIN HPI HPI Patient is a 62 year old female with past medical history of CHF, CA, HTN, DM, CABG who presents with 5 days of chest pain and shortness of breath. Patient notes that she was seen in [facility] ED on Friday for similar symptoms and discharged then. Patient notes today she had worsening of her shortness of breath. Patient notes that her shortness of breath is worsened with activity and also notes orthopnea. Patient notes she is not short of breath at rest. Patient notes that her chest pain is stabbing and moderate in severity. Patient notes her pain is aggravated surgeon and decreases with rest. Patient notes radiation of pain to her left. Patient denies diaphoresis. She notes that she takes her sublingual nitroglycerin 2-3 times daily and notes that this "settles "the pain but does not completely alleviate it. Patient notes she has also felt nauseated for the last few days, but denies any association with her chest pain. Patient uses 3L oxygen at home when necessary, mainly at night. Review of Systems Review of Systems Constitutional: Denies fever or chills [] Eyes: Denies change in visual acuity, redness, or eye pain [] HENT: Denies nasal congestion or sore throat [] Respiratory: Denies cough, notes shortness of breath [] Cardiovascular: Notes chest pain denies palpitations[] GI: Denies abdominal pain, vomiting, bloody stools or diarrhea [] : Denies dysuria or hematuria [] Musculoskeletal: Notes chronic back pain Denies joint pain [] Integument: Denies rash or skin lesions [] Neurologic: Notes headache, Denies focal weakness or sensory changes [] [] Complete systems were reviewed and found to be within normal limits, except as documented in this note. Current Medications Current Medications Current Medications Medications (Trade) Dose Ordered Sig/Susan Start Time Stop Time Status Last Admin Dose Admin Aspirin (Children'S Aspirin) 324 mg 1X ONCE 12/06/17 19:00 12/06/17 19:09 DC Dextrose (Dextrose 50%-Water Syringe) 12.5 gm PRN Q15MIN PRN 12/06/17 21:30 Fentanyl Citrate (Fentanyl 2ml Vial) 50 mcg 1X ONCE 12/06/17 22:00 12/06/17 22:01 Furosemide (Lasix) 60 mg 1X ONCE 12/06/17 21:00 12/06/17 21:01 DC 12/06/17 21:12 60 MG Insulin Human Lispro (HumaLOG) 0-5 UNITS TIDWMEALS 12/07/17 08:00 Nitroglycerin (Nitro-Bid Oint) 0.5 inch 1X ONCE 12/06/17 19:30 12/06/17 19:36 DC Allergies Allergies Allergies Coded Allergies Type Severity Reaction Last Updated Verified ibuprofen Adverse Reaction Intermediate Nausea and Vomiting 12/02/17 Yes Physical Exam Physical Exam Constitutional: Well developed, well nourished, no acute distress, non-toxic appearance. [] HENT: Normocephalic, atraumatic, oropharynx moist, no oral exudates, nose normal. [] Eyes: PERRL, EOMI, conjunctiva normal, no discharge. [] Neck: Normal range of motion, no tenderness, supple, no stridor. [] Cardiovascular:Heart rate regular rhythm, no murmur [] Lungs & Thorax: Bilateral breath sounds clear to auscultation. Breath sounds remote. [] Abdomen: Bowel sounds normal, soft, no tenderness, reducible ventral hernia noted. [] Skin: Warm, dry, no erythema, no rash. [] Back: No tenderness, no CVA tenderness. [] Extremities: No tenderness, ROM intact, no edema. [] Neurologic: Alert and oriented X 3, normal motor function, normal sensory function, no focal deficits noted. [] Psychologic: Affect normal, judgement normal, mood normal. [] Current Patient Data Vital Signs Vital Signs Date Time Temp Pulse Resp B/P (MAP) Pulse Ox O2 Delivery O2 Flow Rate FiO2 12/06/17 18:50 98.3 60 22 177/77 (110) 97 Room Air 3.0 98.3 Lab Values Laboratory Tests Test 12/06/17 18:42 White Blood Count 8.9 x10^3/uL (4.0-11.0) Red Blood Count 4.37 x10^6/uL (3.50-5.40) Hemoglobin 12.0 g/dL (12.0-15.5) Hematocrit 36.5 % (36.0-47.0) Mean Corpuscular Volume 84 fL (79-100) Mean Corpuscular Hemoglobin 27 pg (25-35) Mean Corpuscular Hemoglobin Concent 33 g/dL (31-37) Red Cell Distribution Width 16.1 % (11.5-14.5) H Platelet Count 311 x10^3/uL (140-400) Neutrophils (%) (Auto) 69 % (31-73) Lymphocytes (%) (Auto) 22 % (24-48) L Monocytes (%) (Auto) 7 % (0-9) Eosinophils (%) (Auto) 1 % (0-3) Basophils (%) (Auto) 1 % (0-3) Neutrophils # (Auto) 6.2 x10^3uL (1.8-7.7) Lymphocytes # (Auto) 2.0 x10^3/uL (1.0-4.8) Monocytes # (Auto) 0.6 x10^3/uL (0.0-1.1) Eosinophils # (Auto) 0.1 x10^3/uL (0.0-0.7) Basophils # (Auto) 0.1 x10^3/uL (0.0-0.2) Prothrombin Time 12.7 SEC (11.7-14.0) Prothrombin Time INR 1.0 (0.8-1.1) Sodium Level 141 mmol/L (136-145) Potassium Level 3.7 mmol/L (3.5-5.1) Chloride Level 102 mmol/L (98-107) Carbon Dioxide Level 32 mmol/L (21-32) Anion Gap 7 (6-14) Blood Urea Nitrogen 16 mg/dL (7-20) Creatinine 1.0 mg/dL (0.6-1.0) Estimated GFR (Cockcroft-Gault) 67.8 BUN/Creatinine Ratio 16 (6-20) Glucose Level 167 mg/dL (70-99) H Calcium Level 9.2 mg/dL (8.5-10.1) Magnesium Level 2.4 mg/dL (1.8-2.4) Total Bilirubin 0.1 mg/dL (0.2-1.0) L Aspartate Amino Transferase (AST) 18 U/L (15-37) Alanine Aminotransferase (ALT) 30 U/L (14-59) Alkaline Phosphatase 107 U/L (46-116) Creatine Kinase 45 U/L (26-192) Creatine Kinase MB (Mass) 0.8 ng/mL (0.0-3.6) Creatine Kinase MB Relative Index % (0-4) Troponin I Quantitative < 0.017 ng/mL (0.000-0.055) IQ-Mrw-I-Type Natriuretic Peptide 1174 pg/mL (0-124) H Total Protein 7.8 g/dL (6.4-8.2) Albumin 3.1 g/dL (3.4-5.0) L Albumin/Globulin Ratio 0.7 (1.0-1.7) L Lipase 263 U/L (73-393) Laboratory Tests 12/06/17 18:42 Laboratory Tests 12/06/17 18:42 EKG EKG Sinus rhythm, right axis deviation rate 62, QRS 154 ms, QTC 459 ms. No acute ischemic changes noted, EKG unchanged from 12/02/17.[] Interpretation Time: 185 Radiology/Procedures Radiology/Procedures PROCEDURE: CHEST PA & LATERAL Indication:DYSPNEA, SOA, CHEST PAIN. TECHNIQUE:PA and lateral views of the chest COMPARISON: Previous study from 12/02/2017 FINDINGS: Stable position of cardiac pacer is seen with its leads projecting over the heart. Heart is moderately enlarged in size. Prominent pulmonary vasculature is seen. No interstitial infiltrates or consolidation. No pneumothorax or large pleural effusion. Visualized bony thorax is within normal limits. Median sternotomy likely prior CABG. IMPRESSION: Stable mild cardiomegaly with pulmonary vascular congestion. Very mild interstitial pulmonary edema not ruled out. Electronically signed by: Fede Purvis DO (12/06/2017 7:48 PM) [facility] Course & Med Decision Making Course & Med Decision Making 62-year-old female with past medical history of CAD, hypertension, hyperlipidemia, DM presenting for chest pain and shortness of breath. Patient notes this started on Friday and she was seen in the ED and was found to be stable for discharge and outpatient management. Patient has continued to have intermittent episodes of exertion-related chest pain relieved by rest and nitroglycerin. Patient notes she had worsening of her shortness of breath today , patient notes she is short of breath lying down or with exertion, denies shortness of breath at rest. EKG shows no acute ischemic changes, and is unchanged from 12/02/17. Labs are collected and reviewed. BNP was elevated at 1174. S x-ray shows stable cardiomegaly, vascular congestion, and suspected mild pleural fluid. Patient was given IV dose of Lasix in the emergency department, pain controlled with fentanyl, and patient refused a percutaneous nitroglycerin. Patient requiring admission for further evaluation and treatment after failed outpatient therapy. Discussed with Dr. Keen who is in agreement with admission. Discussed findings and plan with patient, who acknowledge understanding and agreement. [] Dragon Disclaimer Dragon Disclaimer This electronic medical record was generated, in whole or in part, using a voice recognition dictation system. Departure Departure Impression: Primary Impression: CHF exacerbation Disposition: ADMITTED INPATIENT Admitting Physician: Jose Keen Condition: STABLE Referrals: NO PCP (PCP) Problem Qualifiers Primary Impression: CHF exacerbation Heart failure type: unspecified Qualified Codes: I50.9 - Heart failure, unspecified JUSTIN ROMERO DO Dec 06, 2017 19:48
--- NOTE | 2017-12-06 19:52 | RAD ---
Indication:DYSPNEA, SOA, CHEST PAIN. TECHNIQUE:PA and lateral views of the chest COMPARISON: Previous study from 12/02/2017 FINDINGS: Stable position of cardiac pacer is seen with its leads projecting over the heart. Heart is moderately enlarged in size. Prominent pulmonary vasculature is seen. No interstitial infiltrates or consolidation. No pneumothorax or large pleural effusion. Visualized bony thorax is within normal limits. Median sternotomy likely prior CABG. IMPRESSION: Stable mild cardiomegaly with pulmonary vascular congestion. Very mild interstitial pulmonary edema not ruled out. Electronically signed by: Fede Purvis DO (12/06/2017 7:48 PM) [facility]
[2017-12-06] MEDS ORDERED: FUROSEMIDE 40 MG/4 ML VIAL. IVP ONE (21:00)
[2017-12-06] MEDS ORDERED: DEXTROSE 50% 25 GM / 50ML DISP.SYRIN. IV PRN (21:30)
[2017-12-06] MEDS ORDERED: fentaNYL PF VIAL 100 MCG/2 ML VIAL IV PRN (21:30)
[2017-12-06 23:00] VITALS: BP 143/61
[2017-12-06] MEDS ORDERED: OXYC-328 PO (23:33)
[2017-12-07] VITALS (7 sets, daily range): BP systolic 122–161; BP diastolic 47–65
[2017-12-07] MEDS ORDERED: ALBUTEROL SULFATE 5 MG NEB PRN
[2017-12-07] MEDS ORDERED: NITROGLYCERIN SUBLINGUAL 0.4 MG BOTTLE OF 25. SL PRN
[2017-12-07] MEDS ORDERED: ALBUTEROL SULFATE 2.5 MG/3 ML NEBU. NEB PRN (00:15)
[2017-12-07] MEDS: oxyCODONE/APAP 10/325 1 TAB TABLET PO PRN ×4 (00:52→19:43)
--- NOTE | 2017-12-07 07:12 | EKG ---
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
[2017-12-07] MEDS: INSULIN LISPRO 300 UNITS/3 ML INSULN.PEN. SQ SCH ×6 (08:00→17:00)
[2017-12-07] MEDS ORDERED: ONDANSETRON ODT 4 MG TAB.RAPDIS. PO PRN (08:45)
[2017-12-07] MEDS ORDERED: ONDANSETRON PF 4 MG/2 ML VIAL. IV PRN (08:45)
[2017-12-07] MEDS ORDERED: guaiFENesin DM 200MG/20MG 10 ML SYRUP PO PRN (08:45)
[2017-12-07] MEDS ORDERED: ACETAMINOPHEN 500 MG TABLET PO PRN (08:45)
[2017-12-07] MEDS: INSULIN GLARGINE 300 UNITS/3 ML INSULN.PEN. SQ SCH ×2 (09:00→20:55)
[2017-12-07] MEDS ORDERED: FUROSEMIDE 20 MG TABLET PO SCH (09:00)
[2017-12-07] MEDS: POTASSIUM CHLORIDE 10 MEQ TABLET.ER. PO SCH ×2 (09:13→19:42)
[2017-12-07] MEDS: ASPIRIN ENTERIC COATED 81 MG TABLET.DR. PO SCH (09:14)
[2017-12-07] MEDS: FERROUS SULFATE 325 MG TABLET. PO SCH (09:14)
[2017-12-07] MEDS: GLIMEPIRIDE 2 MG TABLET. PO SCH (09:14)
[2017-12-07] MEDS: CLOPIDOGREL BISULFATE 75 MG TABLET PO SCH (09:15)
[2017-12-07] MEDS: LOSARTAN POTASSIUM 50 MG TABLET. PO SCH (09:16)
[2017-12-07] MEDS: PANTOPRAZOLE 40 MG TABLET.DR. PO SCH (09:16)
[2017-12-07] MEDS: METOPROLOL TART IMMED RELEASE 25 MG TABLET. PO SCH ×2 (09:16→19:42)
--- NOTE | 2017-12-07 11:36 | PDOC1 ---
History and Physical Date of Admission Date of Admission DATE: 12/07/17 TIME: 11:32 Identification/Chief Complaint Chief Complaint SOA Source Source: Caregiver, Chart review, Patient History of Present Illness History of Present Illness 62-year-old obese -[place] female known to me because of frequency of admissions for CHF or SOA, complains compliance with Lasix 60 by mouth daily. I just discharge her 3 weeks ago to home health because insurance would not cover SNU, (she was finally agreeable to SNU at that time). Insurance would not cover because it was too soon for her to go to SNU. On chest x-ray mild interstitial prominence edema, stable cardiomegaly but no acute infiltrates. Got Lasix 60 IV 1 at ER no further increase in SOA. Asking for pain meds again from me. I did discuss with her that the last admission she was intubated or BiPAP which took some pretty long days for us to get off because of too much narcotics. I did offer lower dose and a Lidoderm patch. I know her from before. She tends to ask for narcotics every day I round. Otherwise home meds I have reconciled SHe is on Lasix 60 by mouth once a day, with good urine output. I will do Lasix 60 IV daily and consult Dr. Arias, that's her block tester She requests for a sleep aid SHe denies chest pain or leg edema Past Medical History Cardiovascular: CAD, CHF, HTN, CO, Hyperlipidemia Pulmonary: COPD, Other CENTRAL NERVOUS SYSTEM: Periperal neuropathy GI: GERD Heme/Onc: No pertinent hx Hepatobiliary: No pertinent hx Psych: No pertinent hx Musculoskeletal: low back pain, Osteoarthritis Rheumatologic: No pertinent hx Renal/: Chronic renal insuff Endocrine: Diabetes Past Surgical History Past Surgical History: Pacemaker, Appendectomy, Cholecystectomy, CABG, Hernia Repair, Total knee replacement, Hysterectomy, Other Family History Family History: Diabetes Social History Smoke: No ALCOHOL: none Drugs: None Current Medications Current Medications Current Medications Aspirin (Children'S Aspirin) 324 mg 1X ONCE PO ; Start 12/06/17 at 19:00; Stop 12/06/17 at 19:09; Status DC Fentanyl Citrate (Fentanyl 2ml Vial) 50 mcg 1X ONCE IV Last administered on at 19:54; Start 12/06/17 at 19:30; Stop 12/06/17 at 19:31; Status DC Nitroglycerin (Nitro-Bid Oint) 0.5 inch 1X ONCE TP ; Start 12/06/17 at 19:30; Stop 12/06/17 at 19:36; Status DC Furosemide (Lasix) 60 mg 1X ONCE IVP Last administered on 12/06/17at 21:12; Start 12/06/17 at 21:00; Stop 12/06/17 at 21:01; Status DC Fentanyl Citrate (Fentanyl 2ml Vial) 50 mcg PRN Q2HR PRN IV SEVERE PAIN; Start 12/06/17 at 21:30; Stop 12/07/17 at 06:39; Status DC Insulin Human Lispro (HumaLOG) 0-5 UNITS TIDWMEALS SQ ; Start 12/07/17 at 08:00 Dextrose (Dextrose 50%-Water Syringe) 12.5 gm PRN Q15MIN PRN IV SEE COMMENTS; Start 12/06/17 at 21:30 Fentanyl Citrate (Fentanyl 2ml Vial) 50 mcg 1X ONCE IV Last administered on at 22:21; Start 12/06/17 at 22:00; Stop 12/06/17 at 22:01; Status DC Aspirin (Ecotrin) 81 mg DAILY PO Last administered on 12/07/17at 09:14; Start at 09:00 Atorvastatin Calcium (Lipitor) 20 mg HS PO ; Start 12/07/17 at 21:00 Clopidogrel Bisulfate (Plavix) 75 mg DAILY PO Last administered on 12/07/17at 09 :15; Start 12/07/17 at 09:00 Ferrous Sulfate (Feosol) 325 mg DAILY PO Last administered on 12/07/17at 09:14; Start 12/07/17 at 09:00 Furosemide (Lasix) 60 mg DAILY PO Last administered on 12/07/17at 09:14; Start 12/07/17 at 09:00 Glimepiride (Amaryl) 2 mg DAILY PO Last administered on 12/07/17at 09:14; Start 12/07/17 at 09:00 Losartan Potassium (Cozaar) 50 mg DAILY PO Last administered on 12/07/17at 09:16 ; Start 12/07/17 at 09:00 Metoprolol Tartrate (Lopressor) 25 mg BID PO Last administered on 12/07/17at 09: 16; Start 12/07/17 at 09:00 Nitroglycerin (Nitrostat) 0.4 mg PRN Q5MIN PRN SL CHEST PAIN; Start 12/07/17 at 00:00 Oxycodone/ Acetaminophen (Percocet 10/325) 1 tab PRN Q6HRS PRN PO SEVERE PAIN Last administered on 12/07/17at 07:01; Start 12/07/17 at 00:00 Potassium Chloride (Klor-Con) 10 meq BID PO Last administered on 12/07/17at 09: 13; Start 12/07/17 at 09:00 Non-Formulary Medication (Albuterol Sulfate (Albuterol Sulfate Conc Neb Soln)) 5 mg PRN PRN NEB WHEEZING; Start 12/07/17 at 00:00; Status UNV Insulin Human Lispro (HumaLOG) 10 units TIDWMEALS SQ ; Start 12/07/17 at 08:00 Insulin Glargine (Lantus) 15 units BID SQ ; Start 12/07/17 at 09:00 Pantoprazole Sodium (Protonix) 40 mg DAILYAC PO Last administered on 12/07/17at 09:16; Start 12/07/17 at 07:30 Albuterol Sulfate (Ventolin Neb Soln) 2.5 mg PRN Q4HRS PRN NEB SHORTNESS OF BREATH; Start 12/07/17 at 00:15 Guaifenesin (Robitussin Dm) 10 ml PRN Q6HRS PRN PO COUGH; Start 12/07/17 at 08: 45 Ondansetron HCl (Zofran) 4 mg PRN Q6HRS PRN IV NAUSEA/VOMITING; Start 12/07/17 at 08:45 Ondansetron HCl (Zofran Odt) 4 mg PRN Q6HRS PRN PO NAUSEA/VOMITING; Start 12/07 at 08:45 Acetaminophen (Tylenol) 500 mg PRN Q6HRS PRN PO MILD PAIN / TEMP; Start at 08:45 Lidocaine (Lidoderm) 1 patch DAILY PRN TD BACK PAIN; Start 12/07/17 at 08:45 Miscellaneous (Lidoderm Patch Removal) 1 ea QHS MC ; Start 12/07/17 at 21:00 Active Scripts Active Novolog Flexpen (Insulin Aspart) 100 Unit/1 Ml Insuln.pen 10 Unit SQ TID 30 Days Levemir (Insulin Detemir) 100 Unit/1 Ml Vial 15 Unit SQ TID 30 Days [Pantoprazole] 40 MG Tablet.dr 40 Mg PO DAILYAC 30 Days Amaryl (Glimepiride) 2 Mg Tablet 2 Mg PO DAILY 30 Days Reported Percocet 10-325 Mg Tablet (Oxycodone/Acetaminophen) 1 Each Tablet 1 Tab PO PRN Q6HRS Furosemide 80 Mg Tablet 60 Mg PO DAILY Albuterol Sulfate Conc Neb Soln (Albuterol Sulfate) 2.5 Mg/0.5 Ml Vial.neb 5 Mg NEB PRN PRN Losartan Potassium 50 Mg Tablet 50 Mg PO DAILY Metoprolol Tartrate 25 Mg Tablet 1 Tab PO BID Ferrous Sulfate 325 Mg Tablet 1 Tab PO DAILY NITROGLYCERIN SubLingual (Nitroglycerin) 0.4 Mg Tab.subl 0.4 Mg SL PRN Q5MIN PRN Atorvastatin Calcium 20 Mg Tablet 20 Mg PO HS Potassium Chloride 10 Meq Capsule.er 10 Meq PO BID Aspir 81 (Aspirin) 81 Mg Tablet.dr 1 Tab PO DAILY Clopidogrel (Clopidogrel Bisulfate) 75 Mg Tablet 1 Tab PO DAILY Allergies Allergies: Coded Allergies: ibuprofen (Verified Adverse Reaction, Intermediate, Nausea and Vomiting, ) ROS Review of System As per history of present illness, the rest of ROS 14 point negative Physical Exam General: Alert, Oriented X3, Cooperative, No acute distress HEENT: Atraumatic, PERRLA Lungs: Normal air movement, Other (Decrease breath sounds no wheezing) Heart: S1S2, RRR, no thrills, no rubs, no gallops, no murmurs Abdomen: Normal bowel sounds, Soft, No tenderness, No hepatosplenomegaly, No masses Rectal Exam: not examined PELVIC: Nml ext genitalia Extremities: No clubbing, No cyanosis, No edema, Normal pulses, No tenderness/ swelling Skin: No rashes, No breakdown, No significant lesion Neuro: Normal gait, Normal speech, Strength at 5/5 X4 ext, Normal tone, Sensation intact, Cranial nerves 3-12 NL, Reflexes 2+ Psych/Mental Status: Mental status NL, Mood NL Vitals Vitals Vital Signs Date Time Temp Pulse Resp B/P (MAP) Pulse Ox O2 Delivery O2 Flow Rate FiO2 12/07/17 09:16 59 155/51 12/07/17 07:01 18 99 Nasal Cannula 3.0 12/07/17 07:00 98.2 98.2 Labs Labs Laboratory Tests Test 12/06/17 18:42 12/07/17 00:40 12/07/17 04:00 12/07/17 07:29 White Blood Count 8.9 x10^3/uL (4.0-11.0) Red Blood Count 4.37 x10^6/uL (3.50-5.40) Hemoglobin 12.0 g/dL (12.0-15.5) Hematocrit 36.5 % (36.0-47.0) Mean Corpuscular Volume 84 fL (79-100) Mean Corpuscular Hemoglobin 27 pg (25-35) Mean Corpuscular Hemoglobin Concent 33 g/dL (31-37) Red Cell Distribution Width 16.1 % (11.5-14.5) Platelet Count 311 x10^3/uL (140-400) Neutrophils (%) (Auto) 69 % (31-73) Lymphocytes (%) (Auto) 22 % (24-48) Monocytes (%) (Auto) 7 % (0-9) Eosinophils (%) (Auto) 1 % (0-3) Basophils (%) (Auto) 1 % (0-3) Neutrophils # (Auto) 6.2 x10^3uL (1.8-7.7) Lymphocytes # (Auto) 2.0 x10^3/uL (1.0-4.8) Monocytes # (Auto) 0.6 x10^3/uL (0.0-1.1) Eosinophils # (Auto) 0.1 x10^3/uL (0.0-0.7) Basophils # (Auto) 0.1 x10^3/uL (0.0-0.2) Prothrombin Time 12.7 SEC (11.7-14.0) Prothromb Time International Ratio 1.0 (0.8-1.1) Sodium Level 141 mmol/L (136-145) Potassium Level 3.7 mmol/L (3.5-5.1) Chloride Level 102 mmol/L (98-107) Carbon Dioxide Level 32 mmol/L (21-32) Anion Gap 7 (6-14) Blood Urea Nitrogen 16 mg/dL (7-20) Creatinine 1.0 mg/dL (0.6-1.0) Estimated GFR (Cockcroft-Gault) 67.8 BUN/Creatinine Ratio 16 (6-20) Glucose Level 167 mg/dL (70-99) Calcium Level 9.2 mg/dL (8.5-10.1) Magnesium Level 2.4 mg/dL (1.8-2.4) Total Bilirubin 0.1 mg/dL (0.2-1.0) Aspartate Amino Transf (AST/SGOT) 18 U/L (15-37) Alanine Aminotransferase (ALT/SGPT) 30 U/L (14-59) Alkaline Phosphatase 107 U/L (46-116) Creatine Kinase 45 U/L (26-192) Creatine Kinase MB (Mass) 0.8 ng/mL (0.0-3.6) Creatine Kinase MB Relative Index % (0-4) Troponin I Quantitative < 0.017 ng/mL (0.000-0.055) < 0.017 ng/mL (0.000-0.055) < 0.017 ng/mL (0.000-0.055) BM-Gys-D-Type Natriuretic Peptide 1174 pg/mL (0-124) Total Protein 7.8 g/dL (6.4-8.2) Albumin 3.1 g/dL (3.4-5.0) Albumin/Globulin Ratio 0.7 (1.0-1.7) Lipase 263 U/L (73-393) Glucose (Fingerstick) 91 mg/dL (70-99) Laboratory Tests Test 12/06/17 18:42 12/07/17 00:40 12/07/17 04:00 12/07/17 07:29 White Blood Count 8.9 x10^3/uL (4.0-11.0) Red Blood Count 4.37 x10^6/uL (3.50-5.40) Hemoglobin 12.0 g/dL (12.0-15.5) Hematocrit 36.5 % (36.0-47.0) Mean Corpuscular Volume 84 fL (79-100) Mean Corpuscular Hemoglobin 27 pg (25-35) Mean Corpuscular Hemoglobin Concent 33 g/dL (31-37) Red Cell Distribution Width 16.1 % (11.5-14.5) Platelet Count 311 x10^3/uL (140-400) Neutrophils (%) (Auto) 69 % (31-73) Lymphocytes (%) (Auto) 22 % (24-48) Monocytes (%) (Auto) 7 % (0-9) Eosinophils (%) (Auto) 1 % (0-3) Basophils (%) (Auto) 1 % (0-3) Neutrophils # (Auto) 6.2 x10^3uL (1.8-7.7) Lymphocytes # (Auto) 2.0 x10^3/uL (1.0-4.8) Monocytes # (Auto) 0.6 x10^3/uL (0.0-1.1) Eosinophils # (Auto) 0.1 x10^3/uL (0.0-0.7) Basophils # (Auto) 0.1 x10^3/uL (0.0-0.2) Prothrombin Time 12.7 SEC (11.7-14.0) Prothromb Time International Ratio 1.0 (0.8-1.1) Sodium Level 141 mmol/L (136-145) Potassium Level 3.7 mmol/L (3.5-5.1) Chloride Level 102 mmol/L (98-107) Carbon Dioxide Level 32 mmol/L (21-32) Anion Gap 7 (6-14) Blood Urea Nitrogen 16 mg/dL (7-20) Creatinine 1.0 mg/dL (0.6-1.0) Estimated GFR (Cockcroft-Gault) 67.8 BUN/Creatinine Ratio 16 (6-20) Glucose Level 167 mg/dL (70-99) Calcium Level 9.2 mg/dL (8.5-10.1) Magnesium Level 2.4 mg/dL (1.8-2.4) Total Bilirubin 0.1 mg/dL (0.2-1.0) Aspartate Amino Transf (AST/SGOT) 18 U/L (15-37) Alanine Aminotransferase (ALT/SGPT) 30 U/L (14-59) Alkaline Phosphatase 107 U/L (46-116) Creatine Kinase 45 U/L (26-192) Creatine Kinase MB (Mass) 0.8 ng/mL (0.0-3.6) Creatine Kinase MB Relative Index % (0-4) Troponin I Quantitative < 0.017 ng/mL (0.000-0.055) < 0.017 ng/mL (0.000-0.055) < 0.017 ng/mL (0.000-0.055) HQ-Ppr-P-Type Natriuretic Peptide 1174 pg/mL (0-124) Total Protein 7.8 g/dL (6.4-8.2) Albumin 3.1 g/dL (3.4-5.0) Albumin/Globulin Ratio 0.7 (1.0-1.7) Lipase 263 U/L (73-393) Glucose (Fingerstick) 91 mg/dL (70-99) VTE Prophylaxis Ordered VTE Prophylaxis Devices: Yes VTE Pharmacological Prophylaxi: Yes Assessment/Plan Assessment/Plan acute on chronic combined CHF, morbid obesity, BMI 44 ANEMIA weakness and debility Dm2, insulin dependent HX severe hypercapnic resp failure needing BIPAP NArc dependence PLAN: Admit 2 midnights Diuresis Lasix 60 IV daily with close watch of elytes PT OT USe narcotics sparingly Benadryl only for sleep PT OT Further recommendations pending above course cards consult/Dr. Arias consult Overall prognosis poor, frequency of admissions CATHIE KNIGHT MD Dec 07, 2017 11:36
[2017-12-07] MEDS ORDERED: oxyCODONE/APAP 5/325 1 TAB TABLET PO ONE (11:45)
[2017-12-07] MEDS ORDERED: diphenhydrAMINE HCL 25 MG CAPSULE PO PRN (11:45)
[2017-12-07] MEDS: LIDOCAINE (700MG/PATCH) PATCH. TD PRN (12:08)
--- NOTE | 2017-12-07 13:30 | EKG ---
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
[2017-12-07] MEDS: PATCH REMOVAL. MC SCH (19:43)
[2017-12-07] MEDS: ATORVASTATIN CALCIUM 20 MG TABLET PO SCH (20:53)
[2017-12-08] MEDS: oxyCODONE/APAP 10/325 1 TAB TABLET PO PRN ×4 (02:10→21:15)
[2017-12-08 03:14] VITALS: BP 158/63
[2017-12-08 07:00] VITALS: BP 169/47
[2017-12-08] MEDS: INSULIN LISPRO 300 UNITS/3 ML INSULN.PEN. SQ SCH ×6 (08:00→17:59)
[2017-12-08] MEDS: GLIMEPIRIDE 2 MG TABLET. PO SCH (08:32)
[2017-12-08] MEDS: ASPIRIN ENTERIC COATED 81 MG TABLET.DR. PO SCH (08:32)
[2017-12-08] MEDS: PANTOPRAZOLE 40 MG TABLET.DR. PO SCH (08:32)
[2017-12-08] MEDS: LOSARTAN POTASSIUM 50 MG TABLET. PO SCH (08:33)
[2017-12-08] MEDS: FERROUS SULFATE 325 MG TABLET. PO SCH (08:34)
[2017-12-08] MEDS: POTASSIUM CHLORIDE 10 MEQ TABLET.ER. PO SCH ×2 (08:35→21:16)
[2017-12-08] MEDS: METOPROLOL TART IMMED RELEASE 25 MG TABLET. PO SCH ×2 (08:35→21:15)
[2017-12-08] MEDS: CLOPIDOGREL BISULFATE 75 MG TABLET PO SCH (08:36)
[2017-12-08] MEDS: FUROSEMIDE 40 MG/4 ML VIAL. IVP SCH (08:55)
[2017-12-08] MEDS: INSULIN GLARGINE 300 UNITS/3 ML INSULN.PEN. SQ SCH ×2 (09:07→21:19)
[2017-12-08 11:00] VITALS: BP 113/34
[2017-12-08] MEDS ORDERED: oxyCODONE/APAP 10/325 1 TAB TABLET PO PRN (11:00)
[2017-12-08 12:14] LABS: BASO # 0.1 x10^3/uL (0.0-0.2); BASO % 1 % (0-3); EOS # 0.1 x10^3/uL (0.0-0.7); EOS % 1 % (0-3); HEMATOCRIT 35.5 % (36.0-47.0); HEMOGLOBIN 11.4 g/dL (12.0-15.5); LYMPH # 1.6 x10^3/uL (1.0-4.8); LYMPH % 19 % (24-48); MEAN CORPUSCULAR HEMOGLOBIN 27 pg (25-35); MEAN CORPUSCULAR HGB CONC 32 g/dL (31-37); MEAN CORPUSCULAR VOLUME 85 fL (79-100); MONO # 0.7 x10^3/uL (0.0-1.1); MONO % 8 % (0-9); NEUT % 72 % (31-73); PLATELET COUNT 298 x10^3/uL (140-400); RED BLOOD COUNT 4.19 x10^6/uL (3.50-5.40); RED CELL DISTRIBUTION WIDTH 16.2 % (11.5-14.5); WHITE BLOOD COUNT 8.4 x10^3/uL (4.0-11.0)
--- NOTE | 2017-12-08 12:30 | PDOC ---
PROGRESS NOTES Chief Complaint Chief Complaint acute on chronic combined CHF h/o CAD with CABG possible VIOLETTA chronic hypoxic resp failure on o2 at night morbid obesity, BMI 44 chronic ANEMIA weakness and debility Dm2, insulin dependent HX severe hypercapnic resp failure needing BIPAP NArc dependence PPM plan: card consult pending pt said she was taking lasix 80mg daily recently now on lasix 60iv daily cont home meds pt begged for 20mg percocet q6h prn, given she was on bipap for a while last time for high PCO2, will only give 10mg for now may add one time 20mg if really need it pt feels ok now, consider dc tmr may need 6min walk on lantus 15u bid, decrease aspart to 5u tid, ssi History of Present Illness History of Present Illness sob better no chest pain no leg swelling asking for high dose percocet, said taking 20mg percocet at home q4-6h. Vitals Vitals Vital Signs Date Time Temp Pulse Resp B/P (MAP) Pulse Ox O2 Delivery O2 Flow Rate FiO2 12/08/17 11:00 98.1 59 18 113/34 (60) 100 Nasal Cannula 2.5 98.1 Physical Exam General: Alert, Oriented X3, Cooperative, No acute distress Lungs: Clear Abdomen: Normal bowel sounds, Soft, No tenderness, No hepatosplenomegaly, No masses Extremities: No clubbing, No cyanosis, No edema, Normal pulses, No tenderness/ swelling Skin: No rashes, No breakdown, No significant lesion Labs LABS Laboratory Tests Test 12/07/17 16:57 12/07/17 17:35 12/07/17 20:14 12/08/17 08:14 Glucose (Fingerstick) 53 mg/dL (70-99) 192 mg/dL (70-99) 182 mg/dL (70-99) 125 mg/dL (70-99) Test 12/08/17 11:20 12/08/17 12:00 Glucose (Fingerstick) 189 mg/dL (70-99) White Blood Count 8.4 x10^3/uL (4.0-11.0) Red Blood Count 4.19 x10^6/uL (3.50-5.40) Hemoglobin 11.4 g/dL (12.0-15.5) Hematocrit 35.5 % (36.0-47.0) Mean Corpuscular Volume 85 fL (79-100) Mean Corpuscular Hemoglobin 27 pg (25-35) Mean Corpuscular Hemoglobin Concent 32 g/dL (31-37) Red Cell Distribution Width 16.2 % (11.5-14.5) Platelet Count 298 x10^3/uL (140-400) Neutrophils (%) (Auto) 72 % (31-73) Lymphocytes (%) (Auto) 19 % (24-48) Monocytes (%) (Auto) 8 % (0-9) Eosinophils (%) (Auto) 1 % (0-3) Basophils (%) (Auto) 1 % (0-3) Neutrophils # (Auto) 6.0 x10^3uL (1.8-7.7) Lymphocytes # (Auto) 1.6 x10^3/uL (1.0-4.8) Monocytes # (Auto) 0.7 x10^3/uL (0.0-1.1) Eosinophils # (Auto) 0.1 x10^3/uL (0.0-0.7) Basophils # (Auto) 0.1 x10^3/uL (0.0-0.2) Comment Review of Relevant I have reviewed the following items nolan (where applicable) has been applied. Labs Laboratory Tests Test 12/06/17 18:42 12/07/17 00:40 12/07/17 04:00 12/07/17 07:29 White Blood Count 8.9 x10^3/uL (4.0-11.0) Red Blood Count 4.37 x10^6/uL (3.50-5.40) Hemoglobin 12.0 g/dL (12.0-15.5) Hematocrit 36.5 % (36.0-47.0) Mean Corpuscular Volume 84 fL (79-100) Mean Corpuscular Hemoglobin 27 pg (25-35) Mean Corpuscular Hemoglobin Concent 33 g/dL (31-37) Red Cell Distribution Width 16.1 % (11.5-14.5) Platelet Count 311 x10^3/uL (140-400) Neutrophils (%) (Auto) 69 % (31-73) Lymphocytes (%) (Auto) 22 % (24-48) Monocytes (%) (Auto) 7 % (0-9) Eosinophils (%) (Auto) 1 % (0-3) Basophils (%) (Auto) 1 % (0-3) Neutrophils # (Auto) 6.2 x10^3uL (1.8-7.7) Lymphocytes # (Auto) 2.0 x10^3/uL (1.0-4.8) Monocytes # (Auto) 0.6 x10^3/uL (0.0-1.1) Eosinophils # (Auto) 0.1 x10^3/uL (0.0-0.7) Basophils # (Auto) 0.1 x10^3/uL (0.0-0.2) Prothrombin Time 12.7 SEC (11.7-14.0) Prothromb Time International Ratio 1.0 (0.8-1.1) Sodium Level 141 mmol/L (136-145) Potassium Level 3.7 mmol/L (3.5-5.1) Chloride Level 102 mmol/L (98-107) Carbon Dioxide Level 32 mmol/L (21-32) Anion Gap 7 (6-14) Blood Urea Nitrogen 16 mg/dL (7-20) Creatinine 1.0 mg/dL (0.6-1.0) Estimated GFR (Cockcroft-Gault) 67.8 BUN/Creatinine Ratio 16 (6-20) Glucose Level 167 mg/dL (70-99) Calcium Level 9.2 mg/dL (8.5-10.1) Magnesium Level 2.4 mg/dL (1.8-2.4) Total Bilirubin 0.1 mg/dL (0.2-1.0) Aspartate Amino Transf (AST/SGOT) 18 U/L (15-37) Alanine Aminotransferase (ALT/SGPT) 30 U/L (14-59) Alkaline Phosphatase 107 U/L (46-116) Creatine Kinase 45 U/L (26-192) Creatine Kinase MB (Mass) 0.8 ng/mL (0.0-3.6) Creatine Kinase MB Relative Index % (0-4) Troponin I Quantitative < 0.017 ng/mL (0.000-0.055) < 0.017 ng/mL (0.000-0.055) < 0.017 ng/mL (0.000-0.055) OG-Qfg-I-Type Natriuretic Peptide 1174 pg/mL (0-124) Total Protein 7.8 g/dL (6.4-8.2) Albumin 3.1 g/dL (3.4-5.0) Albumin/Globulin Ratio 0.7 (1.0-1.7) Lipase 263 U/L (73-393) Glucose (Fingerstick) 91 mg/dL (70-99) Test 12/07/17 11:37 12/07/17 16:57 12/07/17 17:35 12/07/17 20:14 Glucose (Fingerstick) 150 mg/dL (70-99) 53 mg/dL (70-99) 192 mg/dL (70-99) 182 mg/dL (70-99) Test 12/08/17 08:14 12/08/17 11:20 12/08/17 12:00 Glucose (Fingerstick) 125 mg/dL (70-99) 189 mg/dL (70-99) White Blood Count 8.4 x10^3/uL (4.0-11.0) Red Blood Count 4.19 x10^6/uL (3.50-5.40) Hemoglobin 11.4 g/dL (12.0-15.5) Hematocrit 35.5 % (36.0-47.0) Mean Corpuscular Volume 85 fL (79-100) Mean Corpuscular Hemoglobin 27 pg (25-35) Mean Corpuscular Hemoglobin Concent 32 g/dL (31-37) Red Cell Distribution Width 16.2 % (11.5-14.5) Platelet Count 298 x10^3/uL (140-400) Neutrophils (%) (Auto) 72 % (31-73) Lymphocytes (%) (Auto) 19 % (24-48) Monocytes (%) (Auto) 8 % (0-9) Eosinophils (%) (Auto) 1 % (0-3) Basophils (%) (Auto) 1 % (0-3) Neutrophils # (Auto) 6.0 x10^3uL (1.8-7.7) Lymphocytes # (Auto) 1.6 x10^3/uL (1.0-4.8) Monocytes # (Auto) 0.7 x10^3/uL (0.0-1.1) Eosinophils # (Auto) 0.1 x10^3/uL (0.0-0.7) Basophils # (Auto) 0.1 x10^3/uL (0.0-0.2) Laboratory Tests Test 12/07/17 16:57 12/07/17 17:35 12/07/17 20:14 12/08/17 08:14 Glucose (Fingerstick) 53 mg/dL (70-99) 192 mg/dL (70-99) 182 mg/dL (70-99) 125 mg/dL (70-99) Test 12/08/17 11:20 12/08/17 12:00 Glucose (Fingerstick) 189 mg/dL (70-99) White Blood Count 8.4 x10^3/uL (4.0-11.0) Red Blood Count 4.19 x10^6/uL (3.50-5.40) Hemoglobin 11.4 g/dL (12.0-15.5) Hematocrit 35.5 % (36.0-47.0) Mean Corpuscular Volume 85 fL (79-100) Mean Corpuscular Hemoglobin 27 pg (25-35) Mean Corpuscular Hemoglobin Concent 32 g/dL (31-37) Red Cell Distribution Width 16.2 % (11.5-14.5) Platelet Count 298 x10^3/uL (140-400) Neutrophils (%) (Auto) 72 % (31-73) Lymphocytes (%) (Auto) 19 % (24-48) Monocytes (%) (Auto) 8 % (0-9) Eosinophils (%) (Auto) 1 % (0-3) Basophils (%) (Auto) 1 % (0-3) Neutrophils # (Auto) 6.0 x10^3uL (1.8-7.7) Lymphocytes # (Auto) 1.6 x10^3/uL (1.0-4.8) Monocytes # (Auto) 0.7 x10^3/uL (0.0-1.1) Eosinophils # (Auto) 0.1 x10^3/uL (0.0-0.7) Basophils # (Auto) 0.1 x10^3/uL (0.0-0.2) Medications Current Medications Aspirin (Children'S Aspirin) 324 mg 1X ONCE PO ; Start 12/06/17 at 19:00; Stop 12/06/17 at 19:09; Status DC Fentanyl Citrate (Fentanyl 2ml Vial) 50 mcg 1X ONCE IV Last administered on at 19:54; Start 12/06/17 at 19:30; Stop 12/06/17 at 19:31; Status DC Nitroglycerin (Nitro-Bid Oint) 0.5 inch 1X ONCE TP ; Start 12/06/17 at 19:30; Stop 12/06/17 at 19:36; Status DC Furosemide (Lasix) 60 mg 1X ONCE IVP Last administered on 12/06/17at 21:12; Start 12/06/17 at 21:00; Stop 12/06/17 at 21:01; Status DC Fentanyl Citrate (Fentanyl 2ml Vial) 50 mcg PRN Q2HR PRN IV SEVERE PAIN; Start 12/06/17 at 21:30; Stop 12/07/17 at 06:39; Status DC Insulin Human Lispro (HumaLOG) 0-5 UNITS TIDWMEALS SQ Last administered on 12/08at 12:22; Start 12/07/17 at 08:00 Dextrose (Dextrose 50%-Water Syringe) 12.5 gm PRN Q15MIN PRN IV SEE COMMENTS Last administered on 12/07/17at 17:08; Start 12/06/17 at 21:30 Fentanyl Citrate (Fentanyl 2ml Vial) 50 mcg 1X ONCE IV Last administered on at 22:21; Start 12/06/17 at 22:00; Stop 12/06/17 at 22:01; Status DC Aspirin (Ecotrin) 81 mg DAILY PO Last administered on 12/08/17at 08:32; Start at 09:00 Atorvastatin Calcium (Lipitor) 20 mg HS PO Last administered on 12/07/17at 20:53 ; Start 12/07/17 at 21:00 Clopidogrel Bisulfate (Plavix) 75 mg DAILY PO Last administered on 12/08/17at 08 :36; Start 12/07/17 at 09:00 Ferrous Sulfate (Feosol) 325 mg DAILY PO Last administered on 12/08/17at 08:34; Start 12/07/17 at 09:00 Furosemide (Lasix) 60 mg DAILY PO Last administered on 12/07/17at 09:14; Start 12/07/17 at 09:00; Stop 12/07/17 at 11:33; Status DC Glimepiride (Amaryl) 2 mg DAILY PO Last administered on 12/08/17at 08:32; Start 12/07/17 at 09:00 Losartan Potassium (Cozaar) 50 mg DAILY PO Last administered on 12/08/17at 08:33 ; Start 12/07/17 at 09:00 Metoprolol Tartrate (Lopressor) 25 mg BID PO Last administered on 12/08/17at 08: 35; Start 12/07/17 at 09:00 Nitroglycerin (Nitrostat) 0.4 mg PRN Q5MIN PRN SL CHEST PAIN; Start 12/07/17 at 00:00 Oxycodone/ Acetaminophen (Percocet 10/325) 1 tab PRN Q6HRS PRN PO SEVERE PAIN Last administered on 12/08/17at 08:31; Start 12/07/17 at 00:00; Stop 12/08/17 at 10:46; Status DC Potassium Chloride (Klor-Con) 10 meq BID PO Last administered on 12/08/17at 08: 35; Start 12/07/17 at 09:00 Non-Formulary Medication (Albuterol Sulfate (Albuterol Sulfate Conc Neb Soln)) 5 mg PRN PRN NEB WHEEZING; Start 12/07/17 at 00:00; Status UNV Insulin Human Lispro (HumaLOG) 10 units TIDWMEALS SQ Last administered on at 08:45; Start 12/07/17 at 08:00; Stop 12/08/17 at 10:46; Status DC Insulin Glargine (Lantus) 15 units BID SQ Last administered on 12/08/17at 09:07 ; Start 12/07/17 at 09:00 Pantoprazole Sodium (Protonix) 40 mg DAILYAC PO Last administered on 12/08/17at 08:32; Start 12/07/17 at 07:30 Albuterol Sulfate (Ventolin Neb Soln) 2.5 mg PRN Q4HRS PRN NEB SHORTNESS OF BREATH Last administered on 12/08/17at 10:56; Start 12/07/17 at 00:15 Guaifenesin (Robitussin Dm) 10 ml PRN Q6HRS PRN PO COUGH; Start 12/07/17 at 08: 45 Ondansetron HCl (Zofran) 4 mg PRN Q6HRS PRN IV NAUSEA/VOMITING; Start 12/07/17 at 08:45 Ondansetron HCl (Zofran Odt) 4 mg PRN Q6HRS PRN PO NAUSEA/VOMITING; Start 12/07 at 08:45 Acetaminophen (Tylenol) 500 mg PRN Q6HRS PRN PO MILD PAIN / TEMP; Start at 08:45 Lidocaine (Lidoderm) 1 patch DAILY PRN TD BACK PAIN Last administered on at 12:08; Start 12/07/17 at 08:45 Miscellaneous (Lidoderm Patch Removal) 1 ea QHS MC ; Start 12/07/17 at 21:00 Furosemide (Lasix) 60 mg DAILY IVP Last administered on 12/08/17at 08:55; Start 12/08/17 at 09:00 Diphenhydramine HCl (Benadryl) 25 mg PRN QHS PRN PO INSOMNIA; Start 12/07/17 at 11:45 Oxycodone/ Acetaminophen (Percocet 5/325) 1 tab 1X ONCE PO Last administered on 12/07/17at 12:02; Start 12/07/17 at 11:45; Stop 12/07/17 at 11:46; Status DC Insulin Human Lispro (HumaLOG) 5 units TIDWMEALS SQ Last administered on at 12:22; Start 12/08/17 at 12:00 Oxycodone/ Acetaminophen (Percocet 10/325) 2 tab PRN Q6HRS PRN PO SEVERE PAIN; Start 12/08/17 at 11:00; Stop 12/08/17 at 11:00; Status DC Oxycodone/ Acetaminophen (Percocet 10/325) 1 tab PRN Q6HRS PRN PO SEVERE PAIN; Start 12/08/17 at 11:00 Active Scripts Active Novolog Flexpen (Insulin Aspart) 100 Unit/1 Ml Insuln.pen 10 Unit SQ TID 30 Days Levemir (Insulin Detemir) 100 Unit/1 Ml Vial 15 Unit SQ TID 30 Days [Pantoprazole] 40 MG Tablet.dr 40 Mg PO DAILYAC 30 Days Amaryl (Glimepiride) 2 Mg Tablet 2 Mg PO DAILY 30 Days Reported Percocet 10-325 Mg Tablet (Oxycodone/Acetaminophen) 1 Each Tablet 1 Tab PO PRN Q6HRS Furosemide 80 Mg Tablet 80 Mg PO DAILY Albuterol Sulfate Conc Neb Soln (Albuterol Sulfate) 2.5 Mg/0.5 Ml Vial.neb 5 Mg NEB PRN PRN Losartan Potassium 50 Mg Tablet 50 Mg PO DAILY Metoprolol Tartrate 25 Mg Tablet 1 Tab PO BID Ferrous Sulfate 325 Mg Tablet 1 Tab PO DAILY NITROGLYCERIN SubLingual (Nitroglycerin) 0.4 Mg Tab.subl 0.4 Mg SL PRN Q5MIN PRN Atorvastatin Calcium 20 Mg Tablet 20 Mg PO HS Potassium Chloride 10 Meq Capsule.er 10 Meq PO BID Aspir 81 (Aspirin) 81 Mg Tablet. 1 Tab PO DAILY Clopidogrel (Clopidogrel Bisulfate) 75 Mg Tablet 1 Tab PO DAILY Vitals/I & O Vital Sign - Last 24 Hours 12/07/17 12/07/17 12/07/17 12/07/17 13:16 15:00 19:00 19:42 Temp 99.2 98.5 99.2 98.5 Pulse 60 60 60 Resp 18 18 B/P (MAP) 128/50 (76) 161/65 (97) 161/65 Pulse Ox 97 96 O2 Delivery Nasal Cannula Nasal Cannula Nasal Cannula O2 Flow Rate 3.0 3.0 12/07/17 12/07/17 12/07/17 12/08/17 19:43 20:00 23:00 02:10 Temp 98.4 98.4 Pulse 57 Resp 18 18 20 B/P (MAP) 133/57 (82) Pulse Ox 97 97 97 O2 Delivery Nasal Cannula Nasal Cannula Nasal Cannula Nasal Cannula O2 Flow Rate 3.0 3.0 3.0 3.0 12/08/17 12/08/17 12/08/17 12/08/17 03:14 07:00 08:00 08:31 Temp 97.9 97.9 97.9 97.9 Pulse 60 63 Resp 18 18 20 B/P (MAP) 158/63 (94) 169/47 (87) Pulse Ox 100 99 O2 Delivery Nasal Cannula Nasal Cannula Nasal Cannula Room Air O2 Flow Rate 2.5 2.5 3.0 12/08/17 12/08/17 12/08/17 12/08/17 08:33 08:35 09:31 10:58 Pulse 63 63 Resp 18 B/P (MAP) 169/47 169/47 Pulse Ox 99 96 O2 Delivery Nasal Cannula Nasal Cannula O2 Flow Rate 3.0 2.5 12/08/17 11:00 Temp 98.1 98.1 Pulse 59 Resp 18 B/P (MAP) 113/34 (60) Pulse Ox 100 O2 Delivery Nasal Cannula O2 Flow Rate 2.5 Intake and Output 12/07/17 12/07/17 12/08/17 15:00 23:00 07:00 Intake Total 700 ml 470 ml Balance 700 ml 470 ml RADHA PIERRE MD Dec 08, 2017 12:30
[2017-12-08 12:31] LABS: CALCIUM 9.7 mg/dL (8.5-10.1); CREATININE 0.8 mg/dL (0.6-1.0); GFR 87.7; POTASSIUM 4.1 mmol/L (3.5-5.1)
[2017-12-08 15:00] VITALS: BP 148/46
[2017-12-08] MEDS: LIDOCAINE (700MG/PATCH) PATCH. TD PRN (15:04)
--- NOTE | 2017-12-08 17:40 | PDOC2 ---
CONSULT Date of Consult Date of Consult DATE: 12/08/17 TIME: 17:35 Reason for Consult Reason for Consult: Chest pain Referring Physician Referring Physician: Dr James Identification/Chief Complaint Chief Complaint Chest pain History of Present Illness Reason for Visit: This patient is a 62-year-old lady that is a very frequent patient at this institution. The patient has known CHF, hypertension, obesity, and multiple chronic pains. She comes in complaining of a severe left shoulder pain that radiates down into the chest from the left shoulder the pain is severe, sharp and sustained. She's had this pain several times before. Her EKG is unchanged and her enzymes have been negative. Past Medical History Cardiovascular: CAD, CHF, HTN, MS, Hyperlipidemia Pulmonary: COPD, Other CENTRAL NERVOUS SYSTEM: Periperal neuropathy GI: GERD Heme/Onc: No pertinent hx Hepatobiliary: No pertinent hx Psych: No pertinent hx Musculoskeletal: low back pain, Osteoarthritis Rheumatologic: No pertinent hx Renal/: Chronic renal insuff Endocrine: Diabetes Past Surgical History Past Surgical History: Pacemaker, Appendectomy, Cholecystectomy, CABG, Hernia Repair, Total knee replacement, Hysterectomy, Other Family History Family History: Diabetes Social History No ALCOHOL: none Drugs: None Current Medications Current Medications Current Medications Aspirin (Children'S Aspirin) 324 mg 1X ONCE PO ; Start 12/06/17 at 19:00; Stop 12/06/17 at 19:09; Status DC Fentanyl Citrate (Fentanyl 2ml Vial) 50 mcg 1X ONCE IV Last administered on at 19:54; Start 12/06/17 at 19:30; Stop 12/06/17 at 19:31; Status DC Nitroglycerin (Nitro-Bid Oint) 0.5 inch 1X ONCE TP ; Start 12/06/17 at 19:30; Stop 12/06/17 at 19:36; Status DC Furosemide (Lasix) 60 mg 1X ONCE IVP Last administered on 12/06/17at 21:12; Start 12/06/17 at 21:00; Stop 12/06/17 at 21:01; Status DC Fentanyl Citrate (Fentanyl 2ml Vial) 50 mcg PRN Q2HR PRN IV SEVERE PAIN; Start 12/06/17 at 21:30; Stop 12/07/17 at 06:39; Status DC Insulin Human Lispro (HumaLOG) 0-5 UNITS TIDWMEALS SQ Last administered on 12/08at 12:22; Start 12/07/17 at 08:00 Dextrose (Dextrose 50%-Water Syringe) 12.5 gm PRN Q15MIN PRN IV SEE COMMENTS Last administered on 12/07/17at 17:08; Start 12/06/17 at 21:30 Fentanyl Citrate (Fentanyl 2ml Vial) 50 mcg 1X ONCE IV Last administered on at 22:21; Start 12/06/17 at 22:00; Stop 12/06/17 at 22:01; Status DC Aspirin (Ecotrin) 81 mg DAILY PO Last administered on 12/08/17at 08:32; Start at 09:00 Atorvastatin Calcium (Lipitor) 20 mg HS PO Last administered on 12/07/17at 20:53 ; Start 12/07/17 at 21:00 Clopidogrel Bisulfate (Plavix) 75 mg DAILY PO Last administered on 12/08/17at 08 :36; Start 12/07/17 at 09:00 Ferrous Sulfate (Feosol) 325 mg DAILY PO Last administered on 12/08/17at 08:34; Start 12/07/17 at 09:00 Furosemide (Lasix) 60 mg DAILY PO Last administered on 12/07/17at 09:14; Start 12/07/17 at 09:00; Stop 12/07/17 at 11:33; Status DC Glimepiride (Amaryl) 2 mg DAILY PO Last administered on 12/08/17at 08:32; Start 12/07/17 at 09:00 Losartan Potassium (Cozaar) 50 mg DAILY PO Last administered on 12/08/17at 08:33 ; Start 12/07/17 at 09:00 Metoprolol Tartrate (Lopressor) 25 mg BID PO Last administered on 12/08/17at 08: 35; Start 12/07/17 at 09:00 Nitroglycerin (Nitrostat) 0.4 mg PRN Q5MIN PRN SL CHEST PAIN; Start 12/07/17 at 00:00 Oxycodone/ Acetaminophen (Percocet 10/325) 1 tab PRN Q6HRS PRN PO SEVERE PAIN Last administered on 12/08/17at 08:31; Start 12/07/17 at 00:00; Stop 12/08/17 at 10:46; Status DC Potassium Chloride (Klor-Con) 10 meq BID PO Last administered on 12/08/17at 08: 35; Start 12/07/17 at 09:00 Non-Formulary Medication (Albuterol Sulfate (Albuterol Sulfate Conc Neb Soln)) 5 mg PRN PRN NEB WHEEZING; Start 12/07/17 at 00:00; Status UNV Insulin Human Lispro (HumaLOG) 10 units TIDWMEALS SQ Last administered on at 08:45; Start 12/07/17 at 08:00; Stop 12/08/17 at 10:46; Status DC Insulin Glargine (Lantus) 15 units BID SQ Last administered on 12/08/17at 09:07 ; Start 12/07/17 at 09:00 Pantoprazole Sodium (Protonix) 40 mg DAILYAC PO Last administered on 12/08/17at 08:32; Start 12/07/17 at 07:30 Albuterol Sulfate (Ventolin Neb Soln) 2.5 mg PRN Q4HRS PRN NEB SHORTNESS OF BREATH Last administered on 12/08/17at 10:56; Start 12/07/17 at 00:15 Guaifenesin (Robitussin Dm) 10 ml PRN Q6HRS PRN PO COUGH; Start 12/07/17 at 08: 45 Ondansetron HCl (Zofran) 4 mg PRN Q6HRS PRN IV NAUSEA/VOMITING; Start 12/07/17 at 08:45 Ondansetron HCl (Zofran Odt) 4 mg PRN Q6HRS PRN PO NAUSEA/VOMITING; Start 12/07 at 08:45 Acetaminophen (Tylenol) 500 mg PRN Q6HRS PRN PO MILD PAIN / TEMP; Start at 08:45 Lidocaine (Lidoderm) 1 patch DAILY PRN TD BACK PAIN Last administered on at 15:04; Start 12/07/17 at 08:45 Miscellaneous (Lidoderm Patch Removal) 1 ea QHS MC ; Start 12/07/17 at 21:00 Furosemide (Lasix) 60 mg DAILY IVP Last administered on 12/08/17at 08:55; Start 12/08/17 at 09:00 Diphenhydramine HCl (Benadryl) 25 mg PRN QHS PRN PO INSOMNIA; Start 12/07/17 at 11:45 Oxycodone/ Acetaminophen (Percocet 5/325) 1 tab 1X ONCE PO Last administered on 12/07/17at 12:02; Start 12/07/17 at 11:45; Stop 12/07/17 at 11:46; Status DC Insulin Human Lispro (HumaLOG) 5 units TIDWMEALS SQ Last administered on at 12:22; Start 12/08/17 at 12:00 Oxycodone/ Acetaminophen (Percocet 10/325) 2 tab PRN Q6HRS PRN PO SEVERE PAIN; Start 12/08/17 at 11:00; Stop 12/08/17 at 11:00; Status DC Oxycodone/ Acetaminophen (Percocet 10/325) 1 tab PRN Q6HRS PRN PO SEVERE PAIN Last administered on 12/08/17at 15:01; Start 12/08/17 at 11:00 Active Scripts Active Novolog Flexpen (Insulin Aspart) 100 Unit/1 Ml Insuln.pen 10 Unit SQ TID 30 Days Levemir (Insulin Detemir) 100 Unit/1 Ml Vial 15 Unit SQ TID 30 Days [Pantoprazole] 40 MG Tablet.dr 40 Mg PO DAILYAC 30 Days Amaryl (Glimepiride) 2 Mg Tablet 2 Mg PO DAILY 30 Days Reported Percocet 10-325 Mg Tablet (Oxycodone/Acetaminophen) 1 Each Tablet 1 Tab PO PRN Q6HRS Furosemide 80 Mg Tablet 80 Mg PO DAILY Albuterol Sulfate Conc Neb Soln (Albuterol Sulfate) 2.5 Mg/0.5 Ml Vial.neb 5 Mg NEB PRN PRN Losartan Potassium 50 Mg Tablet 50 Mg PO DAILY Metoprolol Tartrate 25 Mg Tablet 1 Tab PO BID Ferrous Sulfate 325 Mg Tablet 1 Tab PO DAILY NITROGLYCERIN SubLingual (Nitroglycerin) 0.4 Mg Tab.subl 0.4 Mg SL PRN Q5MIN PRN Atorvastatin Calcium 20 Mg Tablet 20 Mg PO HS Potassium Chloride 10 Meq Capsule.er 10 Meq PO BID Aspir 81 (Aspirin) 81 Mg Tablet.dr 1 Tab PO DAILY Clopidogrel (Clopidogrel Bisulfate) 75 Mg Tablet 1 Tab PO DAILY Allergies Allergies: Coded Allergies: ibuprofen (Verified Adverse Reaction, Intermediate, Nausea and Vomiting, 9 /11/18) Physical Exam General: Alert, Oriented X3, Cooperative HEENT: PERRLA Lungs: Clear to auscultation Heart: Regular rate, Normal S1, Normal S2 Abdomen: Normal bowel sounds, Soft Extremities: Other (1+ edema) MUSCULOSKELETAL: Other (the patient has mild tenderness over the left shoulder and a decreased range of motion for that shoulder.) Vitals VITALS Vital Signs Date Time Temp Pulse Resp B/P (MAP) Pulse Ox O2 Delivery O2 Flow Rate FiO2 12/08/17 16:01 20 97 Nasal Cannula 3.0 12/08/17 15:00 99.5 60 148/46 (80) 99.5 Labs Labs Laboratory Tests Test 12/06/17 18:42 12/07/17 00:40 12/07/17 04:00 12/07/17 07:29 White Blood Count 8.9 x10^3/uL (4.0-11.0) Red Blood Count 4.37 x10^6/uL (3.50-5.40) Hemoglobin 12.0 g/dL (12.0-15.5) Hematocrit 36.5 % (36.0-47.0) Mean Corpuscular Volume 84 fL (79-100) Mean Corpuscular Hemoglobin 27 pg (25-35) Mean Corpuscular Hemoglobin Concent 33 g/dL (31-37) Red Cell Distribution Width 16.1 % (11.5-14.5) Platelet Count 311 x10^3/uL (140-400) Neutrophils (%) (Auto) 69 % (31-73) Lymphocytes (%) (Auto) 22 % (24-48) Monocytes (%) (Auto) 7 % (0-9) Eosinophils (%) (Auto) 1 % (0-3) Basophils (%) (Auto) 1 % (0-3) Neutrophils # (Auto) 6.2 x10^3uL (1.8-7.7) Lymphocytes # (Auto) 2.0 x10^3/uL (1.0-4.8) Monocytes # (Auto) 0.6 x10^3/uL (0.0-1.1) Eosinophils # (Auto) 0.1 x10^3/uL (0.0-0.7) Basophils # (Auto) 0.1 x10^3/uL (0.0-0.2) Prothrombin Time 12.7 SEC (11.7-14.0) Prothromb Time International Ratio 1.0 (0.8-1.1) Sodium Level 141 mmol/L (136-145) Potassium Level 3.7 mmol/L (3.5-5.1) Chloride Level 102 mmol/L (98-107) Carbon Dioxide Level 32 mmol/L (21-32) Anion Gap 7 (6-14) Blood Urea Nitrogen 16 mg/dL (7-20) Creatinine 1.0 mg/dL (0.6-1.0) Estimated GFR (Cockcroft-Gault) 67.8 BUN/Creatinine Ratio 16 (6-20) Glucose Level 167 mg/dL (70-99) Calcium Level 9.2 mg/dL (8.5-10.1) Magnesium Level 2.4 mg/dL (1.8-2.4) Total Bilirubin 0.1 mg/dL (0.2-1.0) Aspartate Amino Transf (AST/SGOT) 18 U/L (15-37) Alanine Aminotransferase (ALT/SGPT) 30 U/L (14-59) Alkaline Phosphatase 107 U/L (46-116) Creatine Kinase 45 U/L (26-192) Creatine Kinase MB (Mass) 0.8 ng/mL (0.0-3.6) Creatine Kinase MB Relative Index % (0-4) Troponin I Quantitative < 0.017 ng/mL (0.000-0.055) < 0.017 ng/mL (0.000-0.055) < 0.017 ng/mL (0.000-0.055) UV-Jwv-[id number]-Type Natriuretic Peptide 1174 pg/mL (0-124) Total Protein 7.8 g/dL (6.4-8.2) Albumin 3.1 g/dL (3.4-5.0) Albumin/Globulin Ratio 0.7 (1.0-1.7) Lipase 263 U/L (73-393) Glucose (Fingerstick) 91 mg/dL (70-99) Test 12/07/17 11:37 12/07/17 16:57 12/07/17 17:35 12/07/17 20:14 Glucose (Fingerstick) 150 mg/dL (70-99) 53 mg/dL (70-99) 192 mg/dL (70-99) 182 mg/dL (70-99) Test 12/08/17 08:14 12/08/17 11:20 12/08/17 12:00 12/08/17 16:55 Glucose (Fingerstick) 125 mg/dL (70-99) 189 mg/dL (70-99) 176 mg/dL (70-99) White Blood Count 8.4 x10^3/uL (4.0-11.0) Red Blood Count 4.19 x10^6/uL (3.50-5.40) Hemoglobin 11.4 g/dL (12.0-15.5) Hematocrit 35.5 % (36.0-47.0) Mean Corpuscular Volume 85 fL (79-100) Mean Corpuscular Hemoglobin 27 pg (25-35) Mean Corpuscular Hemoglobin Concent 32 g/dL (31-37) Red Cell Distribution Width 16.2 % (11.5-14.5) Platelet Count 298 x10^3/uL (140-400) Neutrophils (%) (Auto) 72 % (31-73) Lymphocytes (%) (Auto) 19 % (24-48) Monocytes (%) (Auto) 8 % (0-9) Eosinophils (%) (Auto) 1 % (0-3) Basophils (%) (Auto) 1 % (0-3) Neutrophils # (Auto) 6.0 x10^3uL (1.8-7.7) Lymphocytes # (Auto) 1.6 x10^3/uL (1.0-4.8) Monocytes # (Auto) 0.7 x10^3/uL (0.0-1.1) Eosinophils # (Auto) 0.1 x10^3/uL (0.0-0.7) Basophils # (Auto) 0.1 x10^3/uL (0.0-0.2) Sodium Level 138 mmol/L (136-145) Potassium Level 4.1 mmol/L (3.5-5.1) Chloride Level 97 mmol/L (98-107) Carbon Dioxide Level 37 mmol/L (21-32) Anion Gap 4 (6-14) Blood Urea Nitrogen 13 mg/dL (7-20) Creatinine 0.8 mg/dL (0.6-1.0) Estimated GFR (Cockcroft-Gault) 87.7 Glucose Level 161 mg/dL (70-99) Calcium Level 9.7 mg/dL (8.5-10.1) Laboratory Tests Test 12/07/17 20:14 12/08/17 08:14 12/08/17 11:20 12/08/17 12:00 Glucose (Fingerstick) 182 mg/dL (70-99) 125 mg/dL (70-99) 189 mg/dL (70-99) White Blood Count 8.4 x10^3/uL (4.0-11.0) Red Blood Count 4.19 x10^6/uL (3.50-5.40) Hemoglobin 11.4 g/dL (12.0-15.5) Hematocrit 35.5 % (36.0-47.0) Mean Corpuscular Volume 85 fL (79-100) Mean Corpuscular Hemoglobin 27 pg (25-35) Mean Corpuscular Hemoglobin Concent 32 g/dL (31-37) Red Cell Distribution Width 16.2 % (11.5-14.5) Platelet Count 298 x10^3/uL (140-400) Neutrophils (%) (Auto) 72 % (31-73) Lymphocytes (%) (Auto) 19 % (24-48) Monocytes (%) (Auto) 8 % (0-9) Eosinophils (%) (Auto) 1 % (0-3) Basophils (%) (Auto) 1 % (0-3) Neutrophils # (Auto) 6.0 x10^3uL (1.8-7.7) Lymphocytes # (Auto) 1.6 x10^3/uL (1.0-4.8) Monocytes # (Auto) 0.7 x10^3/uL (0.0-1.1) Eosinophils # (Auto) 0.1 x10^3/uL (0.0-0.7) Basophils # (Auto) 0.1 x10^3/uL (0.0-0.2) Sodium Level 138 mmol/L (136-145) Potassium Level 4.1 mmol/L (3.5-5.1) Chloride Level 97 mmol/L (98-107) Carbon Dioxide Level 37 mmol/L (21-32) Anion Gap 4 (6-14) Blood Urea Nitrogen 13 mg/dL (7-20) Creatinine 0.8 mg/dL (0.6-1.0) Estimated GFR (Cockcroft-Gault) 87.7 Glucose Level 161 mg/dL (70-99) Calcium Level 9.7 mg/dL (8.5-10.1) Test 12/08/17 16:55 Glucose (Fingerstick) 176 mg/dL (70-99) Assessment/Plan Assessment/Plan This patient comes in with an atypical chest pain that is probably musculoskeletal in origin not angina. She may have issues with her left shoulder with a possible per side is for possible torn rotator cuff. From a cardiac standpoint she appears to be compensated at this time. I would suggest to get a rehabilitation consult and she may benefit from a steroid injection. Thank you very much for asking me to participate in the care of this patient. LIZBET LINDSAY MD Dec 08, 2017 17:40
[2017-12-08 19:00] VITALS: BP 162/62
[2017-12-08] MEDS: PATCH REMOVAL. MC SCH (21:00)
[2017-12-08] MEDS: ATORVASTATIN CALCIUM 20 MG TABLET PO SCH (21:16)
[2017-12-08 23:05] VITALS: BP 126/47
[2017-12-09 03:06] VITALS: BP 138/60
[2017-12-09] MEDS: oxyCODONE/APAP 10/325 1 TAB TABLET PO PRN ×4 (04:15→23:46)
[2017-12-09 06:21] LABS: BLOOD UREA NITROGEN 14 mg/dL (7-20); CALCIUM 9.1 mg/dL (8.5-10.1); CARBON DIOXIDE 41 mmol/L (21-32); CHLORIDE 99 mmol/L (98-107); CREATININE 0.8 mg/dL (0.6-1.0); GFR 87.7; GLUCOSE 116 mg/dL (70-99); POTASSIUM 4.2 mmol/L (3.5-5.1); SODIUM 139 mmol/L (136-145)
[2017-12-09 07:00] VITALS: BP 152/68
[2017-12-09 07:04] LABS: BASO % 0 % (0-3); EOS # 0.1 x10^3/uL (0.0-0.7); EOS % 2 % (0-3); HEMATOCRIT 33.2 % (36.0-47.0); HEMOGLOBIN 10.4 g/dL (12.0-15.5); LYMPH # 1.4 x10^3/uL (1.0-4.8); LYMPH % 23 % (24-48); MEAN CORPUSCULAR HEMOGLOBIN 27 pg (25-35); MEAN CORPUSCULAR HGB CONC 31 g/dL (31-37); MEAN CORPUSCULAR VOLUME 86 fL (79-100); MONO # 0.5 x10^3/uL (0.0-1.1); MONO % 9 % (0-9); NEUT % 67 % (31-73); PLATELET COUNT 279 x10^3/uL (140-400); RED BLOOD COUNT 3.89 x10^6/uL (3.50-5.40)
[2017-12-09] MEDS: LIDOCAINE (700MG/PATCH) PATCH. TD PRN (07:48)
[2017-12-09] MEDS: ASPIRIN ENTERIC COATED 81 MG TABLET.DR. PO SCH (07:49)
[2017-12-09] MEDS: FERROUS SULFATE 325 MG TABLET. PO SCH (07:50)
[2017-12-09] MEDS: PANTOPRAZOLE 40 MG TABLET.DR. PO SCH (07:50)
[2017-12-09] MEDS: GLIMEPIRIDE 2 MG TABLET. PO SCH (07:51)
[2017-12-09] MEDS: FUROSEMIDE 40 MG/4 ML VIAL. IVP SCH (07:51)
[2017-12-09] MEDS: POTASSIUM CHLORIDE 10 MEQ TABLET.ER. PO SCH ×2 (07:53→21:17)
[2017-12-09] MEDS: CLOPIDOGREL BISULFATE 75 MG TABLET PO SCH (07:55)
[2017-12-09] MEDS: INSULIN LISPRO 300 UNITS/3 ML INSULN.PEN. SQ SCH ×6 (08:00→17:43)
[2017-12-09] MEDS: LOSARTAN POTASSIUM 50 MG TABLET. PO SCH (08:22)
[2017-12-09] MEDS: METOPROLOL TART IMMED RELEASE 25 MG TABLET. PO SCH ×2 (08:23→21:18)
[2017-12-09] MEDS: INSULIN GLARGINE 300 UNITS/3 ML INSULN.PEN. SQ SCH ×2 (08:27→21:21)
--- NOTE | 2017-12-09 10:34 | PDOC ---
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 Vitals Vitals Vital Signs Date Time Temp Pulse Resp B/P (MAP) Pulse Ox O2 Delivery O2 Flow Rate FiO2 12/09/17 08:23 60 152/68 12/09/17 07:00 98.3 20 98 Nasal Cannula 98.3 12/09/17 04:15 3.0 Physical Exam General: Alert, Oriented X3, Cooperative Heart: Regular rate, Normal S1, Normal S2 Lungs: Clear Abdomen: Normal bowel sounds, Soft Extremities: Other (1+ edema) Skin: No rashes, No breakdown, No significant lesion Labs LABS Laboratory Tests Test 12/08/17 11:20 12/08/17 12:00 12/08/17 16:55 12/08/17 20:23 Glucose (Fingerstick) 189 mg/dL (70-99) 176 mg/dL (70-99) 189 mg/dL (70-99) White Blood Count 8.4 x10^3/uL (4.0-11.0) Red Blood Count 4.19 x10^6/uL (3.50-5.40) Hemoglobin 11.4 g/dL (12.0-15.5) Hematocrit 35.5 % (36.0-47.0) Mean Corpuscular Volume 85 fL (79-100) Mean Corpuscular Hemoglobin 27 pg (25-35) Mean Corpuscular Hemoglobin Concent 32 g/dL (31-37) Red Cell Distribution Width 16.2 % (11.5-14.5) Platelet Count 298 x10^3/uL (140-400) Neutrophils (%) (Auto) 72 % (31-73) Lymphocytes (%) (Auto) 19 % (24-48) Monocytes (%) (Auto) 8 % (0-9) Eosinophils (%) (Auto) 1 % (0-3) Basophils (%) (Auto) 1 % (0-3) Neutrophils # (Auto) 6.0 x10^3uL (1.8-7.7) Lymphocytes # (Auto) 1.6 x10^3/uL (1.0-4.8) Monocytes # (Auto) 0.7 x10^3/uL (0.0-1.1) Eosinophils # (Auto) 0.1 x10^3/uL (0.0-0.7) Basophils # (Auto) 0.1 x10^3/uL (0.0-0.2) Sodium Level 138 mmol/L (136-145) Potassium Level 4.1 mmol/L (3.5-5.1) Chloride Level 97 mmol/L (98-107) Carbon Dioxide Level 37 mmol/L (21-32) Anion Gap 4 (6-14) Blood Urea Nitrogen 13 mg/dL (7-20) Creatinine 0.8 mg/dL (0.6-1.0) Estimated GFR (Cockcroft-Gault) 87.7 Glucose Level 161 mg/dL (70-99) Calcium Level 9.7 mg/dL (8.5-10.1) Test 12/09/17 05:35 12/09/17 07:28 White Blood Count 6.0 x10^3/uL (4.0-11.0) Red Blood Count 3.89 x10^6/uL (3.50-5.40) Hemoglobin 10.4 g/dL (12.0-15.5) Hematocrit 33.2 % (36.0-47.0) Mean Corpuscular Volume 86 fL (79-100) Mean Corpuscular Hemoglobin 27 pg (25-35) Mean Corpuscular Hemoglobin Concent 31 g/dL (31-37) Red Cell Distribution Width 16.0 % (11.5-14.5) Platelet Count 279 x10^3/uL (140-400) Neutrophils (%) (Auto) 67 % (31-73) Lymphocytes (%) (Auto) 23 % (24-48) Monocytes (%) (Auto) 9 % (0-9) Eosinophils (%) (Auto) 2 % (0-3) Basophils (%) (Auto) 0 % (0-3) Neutrophils # (Auto) 4.0 x10^3uL (1.8-7.7) Lymphocytes # (Auto) 1.4 x10^3/uL (1.0-4.8) Monocytes # (Auto) 0.5 x10^3/uL (0.0-1.1) Eosinophils # (Auto) 0.1 x10^3/uL (0.0-0.7) Basophils # (Auto) 0.0 x10^3/uL (0.0-0.2) Sodium Level 139 mmol/L (136-145) Potassium Level 4.2 mmol/L (3.5-5.1) Chloride Level 99 mmol/L (98-107) Carbon Dioxide Level 41 mmol/L (21-32) Anion Gap (6-14) Blood Urea Nitrogen 14 mg/dL (7-20) Creatinine 0.8 mg/dL (0.6-1.0) Estimated GFR (Cockcroft-Gault) 87.7 Glucose Level 116 mg/dL (70-99) Calcium Level 9.1 mg/dL (8.5-10.1) Glucose (Fingerstick) 116 mg/dL (70-99) Comment Review of Relevant I have reviewed the following items nolan (where applicable) has been applied. Labs Laboratory Tests Test 12/07/17 11:37 12/07/17 16:57 12/07/17 17:35 12/07/17 20:14 Glucose (Fingerstick) 150 mg/dL (70-99) 53 mg/dL (70-99) 192 mg/dL (70-99) 182 mg/dL (70-99) Test 12/08/17 08:14 12/08/17 11:20 12/08/17 12:00 12/08/17 16:55 Glucose (Fingerstick) 125 mg/dL (70-99) 189 mg/dL (70-99) 176 mg/dL (70-99) White Blood Count 8.4 x10^3/uL (4.0-11.0) Red Blood Count 4.19 x10^6/uL (3.50-5.40) Hemoglobin 11.4 g/dL (12.0-15.5) Hematocrit 35.5 % (36.0-47.0) Mean Corpuscular Volume 85 fL (79-100) Mean Corpuscular Hemoglobin 27 pg (25-35) Mean Corpuscular Hemoglobin Concent 32 g/dL (31-37) Red Cell Distribution Width 16.2 % (11.5-14.5) Platelet Count 298 x10^3/uL (140-400) Neutrophils (%) (Auto) 72 % (31-73) Lymphocytes (%) (Auto) 19 % (24-48) Monocytes (%) (Auto) 8 % (0-9) Eosinophils (%) (Auto) 1 % (0-3) Basophils (%) (Auto) 1 % (0-3) Neutrophils # (Auto) 6.0 x10^3uL (1.8-7.7) Lymphocytes # (Auto) 1.6 x10^3/uL (1.0-4.8) Monocytes # (Auto) 0.7 x10^3/uL (0.0-1.1) Eosinophils # (Auto) 0.1 x10^3/uL (0.0-0.7) Basophils # (Auto) 0.1 x10^3/uL (0.0-0.2) Sodium Level 138 mmol/L (136-145) Potassium Level 4.1 mmol/L (3.5-5.1) Chloride Level 97 mmol/L (98-107) Carbon Dioxide Level 37 mmol/L (21-32) Anion Gap 4 (6-14) Blood Urea Nitrogen 13 mg/dL (7-20) Creatinine 0.8 mg/dL (0.6-1.0) Estimated GFR (Cockcroft-Gault) 87.7 Glucose Level 161 mg/dL (70-99) Calcium Level 9.7 mg/dL (8.5-10.1) Test 12/08/17 20:23 12/09/17 05:35 12/09/17 07:28 Glucose (Fingerstick) 189 mg/dL (70-99) 116 mg/dL (70-99) White Blood Count 6.0 x10^3/uL (4.0-11.0) Red Blood Count 3.89 x10^6/uL (3.50-5.40) Hemoglobin 10.4 g/dL (12.0-15.5) Hematocrit 33.2 % (36.0-47.0) Mean Corpuscular Volume 86 fL (79-100) Mean Corpuscular Hemoglobin 27 pg (25-35) Mean Corpuscular Hemoglobin Concent 31 g/dL (31-37) Red Cell Distribution Width 16.0 % (11.5-14.5) Platelet Count 279 x10^3/uL (140-400) Neutrophils (%) (Auto) 67 % (31-73) Lymphocytes (%) (Auto) 23 % (24-48) Monocytes (%) (Auto) 9 % (0-9) Eosinophils (%) (Auto) 2 % (0-3) Basophils (%) (Auto) 0 % (0-3) Neutrophils # (Auto) 4.0 x10^3uL (1.8-7.7) Lymphocytes # (Auto) 1.4 x10^3/uL (1.0-4.8) Monocytes # (Auto) 0.5 x10^3/uL (0.0-1.1) Eosinophils # (Auto) 0.1 x10^3/uL (0.0-0.7) Basophils # (Auto) 0.0 x10^3/uL (0.0-0.2) Sodium Level 139 mmol/L (136-145) Potassium Level 4.2 mmol/L (3.5-5.1) Chloride Level 99 mmol/L (98-107) Carbon Dioxide Level 41 mmol/L (21-32) Anion Gap (6-14) Blood Urea Nitrogen 14 mg/dL (7-20) Creatinine 0.8 mg/dL (0.6-1.0) Estimated GFR (Cockcroft-Gault) 87.7 Glucose Level 116 mg/dL (70-99) Calcium Level 9.1 mg/dL (8.5-10.1) Laboratory Tests Test 12/08/17 11:20 12/08/17 12:00 12/08/17 16:55 12/08/17 20:23 Glucose (Fingerstick) 189 mg/dL (70-99) 176 mg/dL (70-99) 189 mg/dL (70-99) White Blood Count 8.4 x10^3/uL (4.0-11.0) Red Blood Count 4.19 x10^6/uL (3.50-5.40) Hemoglobin 11.4 g/dL (12.0-15.5) Hematocrit 35.5 % (36.0-47.0) Mean Corpuscular Volume 85 fL (79-100) Mean Corpuscular Hemoglobin 27 pg (25-35) Mean Corpuscular Hemoglobin Concent 32 g/dL (31-37) Red Cell Distribution Width 16.2 % (11.5-14.5) Platelet Count 298 x10^3/uL (140-400) Neutrophils (%) (Auto) 72 % (31-73) Lymphocytes (%) (Auto) 19 % (24-48) Monocytes (%) (Auto) 8 % (0-9) Eosinophils (%) (Auto) 1 % (0-3) Basophils (%) (Auto) 1 % (0-3) Neutrophils # (Auto) 6.0 x10^3uL (1.8-7.7) Lymphocytes # (Auto) 1.6 x10^3/uL (1.0-4.8) Monocytes # (Auto) 0.7 x10^3/uL (0.0-1.1) Eosinophils # (Auto) 0.1 x10^3/uL (0.0-0.7) Basophils # (Auto) 0.1 x10^3/uL (0.0-0.2) Sodium Level 138 mmol/L (136-145) Potassium Level 4.1 mmol/L (3.5-5.1) Chloride Level 97 mmol/L (98-107) Carbon Dioxide Level 37 mmol/L (21-32) Anion Gap 4 (6-14) Blood Urea Nitrogen 13 mg/dL (7-20) Creatinine 0.8 mg/dL (0.6-1.0) Estimated GFR (Cockcroft-Gault) 87.7 Glucose Level 161 mg/dL (70-99) Calcium Level 9.7 mg/dL (8.5-10.1) Test 12/09/17 05:35 12/09/17 07:28 White Blood Count 6.0 x10^3/uL (4.0-11.0) Red Blood Count 3.89 x10^6/uL (3.50-5.40) Hemoglobin 10.4 g/dL (12.0-15.5) Hematocrit 33.2 % (36.0-47.0) Mean Corpuscular Volume 86 fL (79-100) Mean Corpuscular Hemoglobin 27 pg (25-35) Mean Corpuscular Hemoglobin Concent 31 g/dL (31-37) Red Cell Distribution Width 16.0 % (11.5-14.5) Platelet Count 279 x10^3/uL (140-400) Neutrophils (%) (Auto) 67 % (31-73) Lymphocytes (%) (Auto) 23 % (24-48) Monocytes (%) (Auto) 9 % (0-9) Eosinophils (%) (Auto) 2 % (0-3) Basophils (%) (Auto) 0 % (0-3) Neutrophils # (Auto) 4.0 x10^3uL (1.8-7.7) Lymphocytes # (Auto) 1.4 x10^3/uL (1.0-4.8) Monocytes # (Auto) 0.5 x10^3/uL (0.0-1.1) Eosinophils # (Auto) 0.1 x10^3/uL (0.0-0.7) Basophils # (Auto) 0.0 x10^3/uL (0.0-0.2) Sodium Level 139 mmol/L (136-145) Potassium Level 4.2 mmol/L (3.5-5.1) Chloride Level 99 mmol/L (98-107) Carbon Dioxide Level 41 mmol/L (21-32) Anion Gap (6-14) Blood Urea Nitrogen 14 mg/dL (7-20) Creatinine 0.8 mg/dL (0.6-1.0) Estimated GFR (Cockcroft-Gault) 87.7 Glucose Level 116 mg/dL (70-99) Calcium Level 9.1 mg/dL (8.5-10.1) Glucose (Fingerstick) 116 mg/dL (70-99) Medications Current Medications Aspirin (Children'S Aspirin) 324 mg 1X ONCE PO ; Start 12/06/17 at 19:00; Stop 12/06/17 at 19:09; Status DC Fentanyl Citrate (Fentanyl 2ml Vial) 50 mcg 1X ONCE IV Last administered on at 19:54; Start 12/06/17 at 19:30; Stop 12/06/17 at 19:31; Status DC Nitroglycerin (Nitro-Bid Oint) 0.5 inch 1X ONCE TP ; Start 12/06/17 at 19:30; Stop 12/06/17 at 19:36; Status DC Furosemide (Lasix) 60 mg 1X ONCE IVP Last administered on 12/06/17at 21:12; Start 12/06/17 at 21:00; Stop 12/06/17 at 21:01; Status DC Fentanyl Citrate (Fentanyl 2ml Vial) 50 mcg PRN Q2HR PRN IV SEVERE PAIN; Start 12/06/17 at 21:30; Stop 12/07/17 at 06:39; Status DC Insulin Human Lispro (HumaLOG) 0-5 UNITS TIDWMEALS SQ Last administered on 12/08at 17:59; Start 12/07/17 at 08:00 Dextrose (Dextrose 50%-Water Syringe) 12.5 gm PRN Q15MIN PRN IV SEE COMMENTS Last administered on 12/07/17at 17:08; Start 12/06/17 at 21:30 Fentanyl Citrate (Fentanyl 2ml Vial) 50 mcg 1X ONCE IV Last administered on at 22:21; Start 12/06/17 at 22:00; Stop 12/06/17 at 22:01; Status DC Aspirin (Ecotrin) 81 mg DAILY PO Last administered on 12/09/17at 07:49; Start at 09:00 Atorvastatin Calcium (Lipitor) 20 mg HS PO Last administered on 12/08/17at 21:16 ; Start 12/07/17 at 21:00 Clopidogrel Bisulfate (Plavix) 75 mg DAILY PO Last administered on 12/09/17at 07 :55; Start 12/07/17 at 09:00 Ferrous Sulfate (Feosol) 325 mg DAILY PO Last administered on 12/09/17at 07:50; Start 12/07/17 at 09:00 Furosemide (Lasix) 60 mg DAILY PO Last administered on 12/07/17at 09:14; Start 12/07/17 at 09:00; Stop 12/07/17 at 11:33; Status DC Glimepiride (Amaryl) 2 mg DAILY PO Last administered on 12/09/17at 07:51; Start 12/07/17 at 09:00 Losartan Potassium (Cozaar) 50 mg DAILY PO Last administered on 12/09/17at 08:22 ; Start 12/07/17 at 09:00 Metoprolol Tartrate (Lopressor) 25 mg BID PO Last administered on 12/09/17at 08: 23; Start 12/07/17 at 09:00 Nitroglycerin (Nitrostat) 0.4 mg PRN Q5MIN PRN SL CHEST PAIN; Start 12/07/17 at 00:00 Oxycodone/ Acetaminophen (Percocet 10/325) 1 tab PRN Q6HRS PRN PO SEVERE PAIN Last administered on 12/08/17at 08:31; Start 12/07/17 at 00:00; Stop 12/08/17 at 10:46; Status DC Potassium Chloride (Klor-Con) 10 meq BID PO Last administered on 12/09/17at 07: 53; Start 12/07/17 at 09:00 Non-Formulary Medication (Albuterol Sulfate (Albuterol Sulfate Conc Neb Soln)) 5 mg PRN PRN NEB WHEEZING; Start 12/07/17 at 00:00; Status UNV Insulin Human Lispro (HumaLOG) 10 units TIDWMEALS SQ Last administered on at 08:45; Start 12/07/17 at 08:00; Stop 12/08/17 at 10:46; Status DC Insulin Glargine (Lantus) 15 units BID SQ Last administered on 12/09/17at 08:27 ; Start 12/07/17 at 09:00 Pantoprazole Sodium (Protonix) 40 mg DAILYAC PO Last administered on 12/09/17at 07:50; Start 12/07/17 at 07:30 Albuterol Sulfate (Ventolin Neb Soln) 2.5 mg PRN Q4HRS PRN NEB SHORTNESS OF BREATH Last administered on 12/08/17at 10:56; Start 12/07/17 at 00:15 Guaifenesin (Robitussin Dm) 10 ml PRN Q6HRS PRN PO COUGH; Start 12/07/17 at 08: 45 Ondansetron HCl (Zofran) 4 mg PRN Q6HRS PRN IV NAUSEA/VOMITING; Start 12/07/17 at 08:45 Ondansetron HCl (Zofran Odt) 4 mg PRN Q6HRS PRN PO NAUSEA/VOMITING; Start 12/07 at 08:45 Acetaminophen (Tylenol) 500 mg PRN Q6HRS PRN PO MILD PAIN / TEMP; Start at 08:45 Lidocaine (Lidoderm) 1 patch DAILY PRN TD BACK PAIN Last administered on at 07:48; Start 12/07/17 at 08:45 Miscellaneous (Lidoderm Patch Removal) 1 ea QHS MC ; Start 12/07/17 at 21:00 Furosemide (Lasix) 60 mg DAILY IVP Last administered on 12/09/17at 07:51; Start 12/08/17 at 09:00 Diphenhydramine HCl (Benadryl) 25 mg PRN QHS PRN PO INSOMNIA; Start 12/07/17 at 11:45 Oxycodone/ Acetaminophen (Percocet 5/325) 1 tab 1X ONCE PO Last administered on 12/07/17at 12:02; Start 12/07/17 at 11:45; Stop 12/07/17 at 11:46; Status DC Insulin Human Lispro (HumaLOG) 5 units TIDWMEALS SQ Last administered on at 08:16; Start 12/08/17 at 12:00 Oxycodone/ Acetaminophen (Percocet 10/325) 2 tab PRN Q6HRS PRN PO SEVERE PAIN; Start 12/08/17 at 11:00; Stop 12/08/17 at 11:00; Status DC Oxycodone/ Acetaminophen (Percocet 10/325) 1 tab PRN Q6HRS PRN PO SEVERE PAIN Last administered on 12/09/17at 04:15; Start 12/08/17 at 11:00 Active Scripts Active Novolog Flexpen (Insulin Aspart) 100 Unit/1 Ml Insuln.pen 10 Unit SQ TID 30 Days Levemir (Insulin Detemir) 100 Unit/1 Ml Vial 15 Unit SQ TID 30 Days [Pantoprazole] 40 MG Tablet.dr 40 Mg PO DAILYAC 30 Days Amaryl (Glimepiride) 2 Mg Tablet 2 Mg PO DAILY 30 Days Reported Percocet 10-325 Mg Tablet (Oxycodone/Acetaminophen) 1 Each Tablet 1 Tab PO PRN Q6HRS Furosemide 80 Mg Tablet 80 Mg PO DAILY Albuterol Sulfate Conc Neb Soln (Albuterol Sulfate) 2.5 Mg/0.5 Ml Vial.neb 5 Mg NEB PRN PRN Losartan Potassium 50 Mg Tablet 50 Mg PO DAILY Metoprolol Tartrate 25 Mg Tablet 1 Tab PO BID Ferrous Sulfate 325 Mg Tablet 1 Tab PO DAILY NITROGLYCERIN SubLingual (Nitroglycerin) 0.4 Mg Tab.subl 0.4 Mg SL PRN Q5MIN PRN Atorvastatin Calcium 20 Mg Tablet 20 Mg PO HS Potassium Chloride 10 Meq Capsule.er 10 Meq PO BID Aspir 81 (Aspirin) 81 Mg Tablet.dr 1 Tab PO DAILY Clopidogrel (Clopidogrel Bisulfate) 75 Mg Tablet 1 Tab PO DAILY Vitals/I & O Vital Sign - Last 24 Hours 12/08/17 12/08/17 12/08/17 12/08/17 10:58 11:00 15:00 15:01 Temp 98.1 99.5 98.1 99.5 Pulse 59 60 Resp 18 18 18 B/P (MAP) 113/34 (60) 148/46 (80) Pulse Ox 96 100 97 O2 Delivery Nasal Cannula Nasal Cannula Nasal Cannula Nasal Cannula O2 Flow Rate 2.5 2.5 2.5 3.0 12/08/17 12/08/17 12/08/17 12/08/17 19:00 20:00 21:15 21:15 Temp 98.6 98.6 Pulse 57 57 Resp 20 18 B/P (MAP) 162/62 (95) 162/62 Pulse Ox 97 97 O2 Delivery Room Air Nasal Cannula Nasal Cannula O2 Flow Rate 3.0 3.0 12/08/17 12/08/17 12/09/17 12/09/17 22:15 23:05 03:06 04:15 Temp 98.6 98.3 98.6 98.3 Pulse 60 60 Resp 18 20 20 18 B/P (MAP) 126/47 (73) 138/60 (86) Pulse Ox 97 99 100 100 O2 Delivery Nasal Cannula Nasal Cannula Nasal Cannula Nasal Cannula O2 Flow Rate 3.0 3.0 12/09/17 12/09/17 12/09/17 07:00 08:22 08:23 Temp 98.3 98.3 Pulse 60 60 60 Resp 20 B/P (MAP) 152/68 (96) 152/68 152/68 Pulse Ox 98 O2 Delivery Nasal Cannula Intake and Output 12/08/17 12/08/17 12/09/17 15:00 23:00 07:00 Intake Total 360 ml 350 ml Output Total 250 ml 0 ml Balance 360 ml 100 ml 0 ml JHON ZAPIEN MD Dec 09, 2017 10:34
[2017-12-09 11:00] VITALS: BP 121/48
[2017-12-09] MEDS ORDERED: IV NORMAL SALINE 1000ML BAG 1,000 ML IV SCH (11:30)
--- NOTE | 2017-12-09 12:15 | CONS ---
DATE OF CONSULTATION: 12/09/2017 ATTENDING PHYSICIAN: Dr. Keen. The patient was seen at the request of Dr. Keen for rehab evaluation. HISTORY OF PRESENT ILLNESS: This is a 62-year-old female known to me. The patient was admitted on 12/07/2017 with increased shortness of breath. She was discharged from this medical center about 3 weeks ago. The patient with known coronary artery disease, congestive heart failure, hypertension, myocardial infarction, hyperlipidemia, chronic obstructive pulmonary disease, diabetes mellitus with peripheral neuropathy, gastroesophageal reflux disease, chronic lower back pain, osteoarthritis, chronic renal insufficiency, KNOWN ALLERGIC TO IBUPROFEN, status post permanent pacemaker placement, appendectomy, cholecystectomy, coronary artery bypass graft, hernia repair, total knee replacement, hysterectomy. FAMILY HISTORY: Diabetes mellitus. She does not smoke or take alcoholic beverages. The patient usually gets up and walks using a roller walker or a cane. The patient admits some pain in her left shoulder area. She denies any new injury. She has been having left shoulder area pain since she had permanent pacemaker placed in January. The patient denies any neck pain radiating to the shoulder. PHYSICAL EXAMINATION: Today revealed a middle-aged female. She is alert, oriented to time, place, person and circumstance and follows commands appropriately, moves all 4 extremities voluntarily where she had 4+/5 grade muscle strength and deep tendon reflexes are decreased in the upper extremities and absent at both knees and ankles and she had equal perception of touch and pinprick sensation bilaterally. She had some pain on active range of motion of left shoulder and tenderness to palpation over left shoulder and over left posterior shoulder girdle muscles. She is independent with bed mobility and transfers and up walking with a roller walker. She uses oxygen by nasal cannula at 3 liters per minute on as needed basis. No significant pain on range of motion of her neck or lumbar spine at present time. ASSESSMENT: A middle-aged female with known coronary artery disease, congestive heart failure, hypertension, myocardial infarction, hyperlipidemia, chronic obstructive pulmonary disease, diabetes mellitus with peripheral neuropathy, gastroesophageal reflux disease, chronic renal insufficiency, status post coronary artery bypass graft and permanent pacemaker placement. She is having some tendinitis, left shoulder with associated left posterior shoulder girdle muscle strain since she had pacemaker. No clinical evidence of cervical radiculopathy or brachial plexus lesion or rotator cuff lesion. RECOMMENDATIONS: I have instructed her in a home program of physical modalities, trigger point massage and relax stretching x-ray to her left shoulder girdle muscles and also Codman's exercise to her left shoulder and avoid any activity that irritates her shoulder. To consider a course of outpatient physical therapy or injection to her left shoulder if the pain persists. Dr. Keen, I appreciate asking me to participate in the care of this interesting patient. I will be glad to follow her with you as needed for her rehabilitation. TASHI RESTREPO MD DR: JENAE/amrik JOB#: [id number] / [id number]
[2017-12-09 15:00] VITALS: BP 136/52
--- NOTE | 2017-12-09 18:17 | PDOC ---
PROGRESS NOTES Subjective Subjective Patient continues to complain of the shoulder pain. No apparent significant cardiac complaints. Objective Objective Vital Signs Date Time Temp Pulse Resp B/P (MAP) Pulse Ox O2 Delivery O2 Flow Rate FiO2 12/09/17 17:38 20 100 Nasal Cannula 3.0 12/09/17 15:00 98.3 60 136/52 (80) 98.3 Intake and Output 12/09/17 07:00 Intake Total 710 ml Output Total 250 ml Balance 460 ml Intake Oral 710 ml Output Urine Total 250 ml # Voids 1 Physical Exam Physical Exam No changes in cardiac exam Assessment Assessment Patient does not appear to have any acute issues with her cardiac condition. The pain seems to be more of a musculoskeletal perhaps bursitis type of issues with her shoulder. Comment Review of Relevant I have reviewed the following items nolan (where applicable) has been applied. Labs Laboratory Tests Test 12/07/17 20:14 12/08/17 08:14 12/08/17 11:20 12/08/17 12:00 Glucose (Fingerstick) 182 mg/dL (70-99) 125 mg/dL (70-99) 189 mg/dL (70-99) White Blood Count 8.4 x10^3/uL (4.0-11.0) Red Blood Count 4.19 x10^6/uL (3.50-5.40) Hemoglobin 11.4 g/dL (12.0-15.5) Hematocrit 35.5 % (36.0-47.0) Mean Corpuscular Volume 85 fL (79-100) Mean Corpuscular Hemoglobin 27 pg (25-35) Mean Corpuscular Hemoglobin Concent 32 g/dL (31-37) Red Cell Distribution Width 16.2 % (11.5-14.5) Platelet Count 298 x10^3/uL (140-400) Neutrophils (%) (Auto) 72 % (31-73) Lymphocytes (%) (Auto) 19 % (24-48) Monocytes (%) (Auto) 8 % (0-9) Eosinophils (%) (Auto) 1 % (0-3) Basophils (%) (Auto) 1 % (0-3) Neutrophils # (Auto) 6.0 x10^3uL (1.8-7.7) Lymphocytes # (Auto) 1.6 x10^3/uL (1.0-4.8) Monocytes # (Auto) 0.7 x10^3/uL (0.0-1.1) Eosinophils # (Auto) 0.1 x10^3/uL (0.0-0.7) Basophils # (Auto) 0.1 x10^3/uL (0.0-0.2) Sodium Level 138 mmol/L (136-145) Potassium Level 4.1 mmol/L (3.5-5.1) Chloride Level 97 mmol/L (98-107) Carbon Dioxide Level 37 mmol/L (21-32) Anion Gap 4 (6-14) Blood Urea Nitrogen 13 mg/dL (7-20) Creatinine 0.8 mg/dL (0.6-1.0) Estimated GFR (Cockcroft-Gault) 87.7 Glucose Level 161 mg/dL (70-99) Calcium Level 9.7 mg/dL (8.5-10.1) Test 12/08/17 16:55 12/08/17 20:23 12/09/17 05:35 12/09/17 07:28 Glucose (Fingerstick) 176 mg/dL (70-99) 189 mg/dL (70-99) 116 mg/dL (70-99) White Blood Count 6.0 x10^3/uL (4.0-11.0) Red Blood Count 3.89 x10^6/uL (3.50-5.40) Hemoglobin 10.4 g/dL (12.0-15.5) Hematocrit 33.2 % (36.0-47.0) Mean Corpuscular Volume 86 fL (79-100) Mean Corpuscular Hemoglobin 27 pg (25-35) Mean Corpuscular Hemoglobin Concent 31 g/dL (31-37) Red Cell Distribution Width 16.0 % (11.5-14.5) Platelet Count 279 x10^3/uL (140-400) Neutrophils (%) (Auto) 67 % (31-73) Lymphocytes (%) (Auto) 23 % (24-48) Monocytes (%) (Auto) 9 % (0-9) Eosinophils (%) (Auto) 2 % (0-3) Basophils (%) (Auto) 0 % (0-3) Neutrophils # (Auto) 4.0 x10^3uL (1.8-7.7) Lymphocytes # (Auto) 1.4 x10^3/uL (1.0-4.8) Monocytes # (Auto) 0.5 x10^3/uL (0.0-1.1) Eosinophils # (Auto) 0.1 x10^3/uL (0.0-0.7) Basophils # (Auto) 0.0 x10^3/uL (0.0-0.2) Sodium Level 139 mmol/L (136-145) Potassium Level 4.2 mmol/L (3.5-5.1) Chloride Level 99 mmol/L (98-107) Carbon Dioxide Level 41 mmol/L (21-32) Anion Gap (6-14) Blood Urea Nitrogen 14 mg/dL (7-20) Creatinine 0.8 mg/dL (0.6-1.0) Estimated GFR (Cockcroft-Gault) 87.7 Glucose Level 116 mg/dL (70-99) Calcium Level 9.1 mg/dL (8.5-10.1) Test 12/09/17 11:22 12/09/17 16:51 Glucose (Fingerstick) 129 mg/dL (70-99) 167 mg/dL (70-99) Laboratory Tests Test 12/08/17 20:23 12/09/17 05:35 12/09/17 07:28 12/09/17 11:22 Glucose (Fingerstick) 189 mg/dL (70-99) 116 mg/dL (70-99) 129 mg/dL (70-99) White Blood Count 6.0 x10^3/uL (4.0-11.0) Red Blood Count 3.89 x10^6/uL (3.50-5.40) Hemoglobin 10.4 g/dL (12.0-15.5) Hematocrit 33.2 % (36.0-47.0) Mean Corpuscular Volume 86 fL (79-100) Mean Corpuscular Hemoglobin 27 pg (25-35) Mean Corpuscular Hemoglobin Concent 31 g/dL (31-37) Red Cell Distribution Width 16.0 % (11.5-14.5) Platelet Count 279 x10^3/uL (140-400) Neutrophils (%) (Auto) 67 % (31-73) Lymphocytes (%) (Auto) 23 % (24-48) Monocytes (%) (Auto) 9 % (0-9) Eosinophils (%) (Auto) 2 % (0-3) Basophils (%) (Auto) 0 % (0-3) Neutrophils # (Auto) 4.0 x10^3uL (1.8-7.7) Lymphocytes # (Auto) 1.4 x10^3/uL (1.0-4.8) Monocytes # (Auto) 0.5 x10^3/uL (0.0-1.1) Eosinophils # (Auto) 0.1 x10^3/uL (0.0-0.7) Basophils # (Auto) 0.0 x10^3/uL (0.0-0.2) Sodium Level 139 mmol/L (136-145) Potassium Level 4.2 mmol/L (3.5-5.1) Chloride Level 99 mmol/L (98-107) Carbon Dioxide Level 41 mmol/L (21-32) Anion Gap (6-14) Blood Urea Nitrogen 14 mg/dL (7-20) Creatinine 0.8 mg/dL (0.6-1.0) Estimated GFR (Cockcroft-Gault) 87.7 Glucose Level 116 mg/dL (70-99) Calcium Level 9.1 mg/dL (8.5-10.1) Test 12/09/17 16:51 Glucose (Fingerstick) 167 mg/dL (70-99) Medications Current Medications Aspirin (Children'S Aspirin) 324 mg 1X ONCE PO ; Start 12/06/17 at 19:00; Stop 12/06/17 at 19:09; Status DC Fentanyl Citrate (Fentanyl 2ml Vial) 50 mcg 1X ONCE IV Last administered on at 19:54; Start 12/06/17 at 19:30; Stop 12/06/17 at 19:31; Status DC Nitroglycerin (Nitro-Bid Oint) 0.5 inch 1X ONCE TP ; Start 12/06/17 at 19:30; Stop 12/06/17 at 19:36; Status DC Furosemide (Lasix) 60 mg 1X ONCE IVP Last administered on 12/06/17at 21:12; Start 12/06/17 at 21:00; Stop 12/06/17 at 21:01; Status DC Fentanyl Citrate (Fentanyl 2ml Vial) 50 mcg PRN Q2HR PRN IV SEVERE PAIN; Start 12/06/17 at 21:30; Stop 12/07/17 at 06:39; Status DC Insulin Human Lispro (HumaLOG) 0-5 UNITS TIDWMEALS SQ Last administered on 12/09at 17:43; Start 12/07/17 at 08:00 Dextrose (Dextrose 50%-Water Syringe) 12.5 gm PRN Q15MIN PRN IV SEE COMMENTS Last administered on 12/07/17at 17:08; Start 12/06/17 at 21:30 Fentanyl Citrate (Fentanyl 2ml Vial) 50 mcg 1X ONCE IV Last administered on at 22:21; Start 12/06/17 at 22:00; Stop 12/06/17 at 22:01; Status DC Aspirin (Ecotrin) 81 mg DAILY PO Last administered on 12/09/17at 07:49; Start at 09:00 Atorvastatin Calcium (Lipitor) 20 mg HS PO Last administered on 12/08/17at 21:16 ; Start 12/07/17 at 21:00 Clopidogrel Bisulfate (Plavix) 75 mg DAILY PO Last administered on 12/09/17at 07 :55; Start 12/07/17 at 09:00 Ferrous Sulfate (Feosol) 325 mg DAILY PO Last administered on 12/09/17at 07:50; Start 12/07/17 at 09:00 Furosemide (Lasix) 60 mg DAILY PO Last administered on 12/07/17at 09:14; Start 12/07/17 at 09:00; Stop 12/07/17 at 11:33; Status DC Glimepiride (Amaryl) 2 mg DAILY PO Last administered on 12/09/17at 07:51; Start 12/07/17 at 09:00 Losartan Potassium (Cozaar) 50 mg DAILY PO Last administered on 12/09/17 08:22 ; Start 12/07/17 at 09:00 Metoprolol Tartrate (Lopressor) 25 mg BID PO Last administered on 12/09/17at 08: 23; Start 12/07/17 at 09:00 Nitroglycerin (Nitrostat) 0.4 mg PRN Q5MIN PRN SL CHEST PAIN; Start 12/07/17 at 00:00 Oxycodone/ Acetaminophen (Percocet 10/325) 1 tab PRN Q6HRS PRN PO SEVERE PAIN Last administered on 12/08/17at 08:31; Start 12/07/17 at 00:00; Stop 12/08/17 at 10:46; Status DC Potassium Chloride (Klor-Con) 10 meq BID PO Last administered on 12/09/17at 07: 53; Start 12/07/17 at 09:00 Non-Formulary Medication (Albuterol Sulfate (Albuterol Sulfate Conc Neb Soln)) 5 mg PRN PRN NEB WHEEZING; Start 12/07/17 at 00:00; Status UNV Insulin Human Lispro (HumaLOG) 10 units TIDWMEALS SQ Last administered on at 08:45; Start 12/07/17 at 08:00; Stop 12/08/17 at 10:46; Status DC Insulin Glargine (Lantus) 15 units BID SQ Last administered on 12/09/17at 08:27 ; Start 12/07/17 at 09:00 Pantoprazole Sodium (Protonix) 40 mg DAILYAC PO Last administered on 12/09/17at 07:50; Start 12/07/17 at 07:30 Albuterol Sulfate (Ventolin Neb Soln) 2.5 mg PRN Q4HRS PRN NEB SHORTNESS OF BREATH Last administered on 12/08/17at 10:56; Start 12/07/17 at 00:15 Guaifenesin (Robitussin Dm) 10 ml PRN Q6HRS PRN PO COUGH; Start 12/07/17 at 08: 45 Ondansetron HCl (Zofran) 4 mg PRN Q6HRS PRN IV NAUSEA/VOMITING; Start 12/07/17 at 08:45 Ondansetron HCl (Zofran Odt) 4 mg PRN Q6HRS PRN PO NAUSEA/VOMITING; Start 12/07 at 08:45 Acetaminophen (Tylenol) 500 mg PRN Q6HRS PRN PO MILD PAIN / TEMP; Start at 08:45 Lidocaine (Lidoderm) 1 patch DAILY PRN TD BACK PAIN Last administered on at 07:48; Start 12/07/17 at 08:45 Miscellaneous (Lidoderm Patch Removal) 1 ea QHS MC ; Start 12/07/17 at 21:00 Furosemide (Lasix) 60 mg DAILY IVP Last administered on 12/09/17at 07:51; Start 12/08/17 at 09:00 Diphenhydramine HCl (Benadryl) 25 mg PRN QHS PRN PO INSOMNIA; Start 12/07/17 at 11:45 Oxycodone/ Acetaminophen (Percocet 5/325) 1 tab 1X ONCE PO Last administered on 12/07/17at 12:02; Start 12/07/17 at 11:45; Stop 12/07/17 at 11:46; Status DC Insulin Human Lispro (HumaLOG) 5 units TIDWMEALS SQ Last administered on at 17:42; Start 12/08/17 at 12:00 Oxycodone/ Acetaminophen (Percocet 10/325) 2 tab PRN Q6HRS PRN PO SEVERE PAIN; Start 12/08/17 at 11:00; Stop 12/08/17 at 11:00; Status DC Oxycodone/ Acetaminophen (Percocet 10/325) 1 tab PRN Q6HRS PRN PO SEVERE PAIN Last administered on 12/09/17at 17:38; Start 12/08/17 at 11:00 Sodium Chloride 1,000 ml @ 100 mls/hr Q10H IV ; Start 12/09/17 at 11:30; Status Cancel Active Scripts Active Novolog Flexpen (Insulin Aspart) 100 Unit/1 Ml Insuln.pen 10 Unit SQ TID 30 Days Levemir (Insulin Detemir) 100 Unit/1 Ml Vial 15 Unit SQ TID 30 Days [Pantoprazole] 40 MG Tablet.dr 40 Mg PO DAILYAC 30 Days Amaryl (Glimepiride) 2 Mg Tablet 2 Mg PO DAILY 30 Days Reported Percocet 10-325 Mg Tablet (Oxycodone/Acetaminophen) 1 Each Tablet 1 Tab PO PRN Q6HRS Furosemide 80 Mg Tablet 80 Mg PO DAILY Albuterol Sulfate Conc Neb Soln (Albuterol Sulfate) 2.5 Mg/0.5 Ml Vial.neb 5 Mg NEB PRN PRN Losartan Potassium 50 Mg Tablet 50 Mg PO DAILY Metoprolol Tartrate 25 Mg Tablet 1 Tab PO BID Ferrous Sulfate 325 Mg Tablet 1 Tab PO DAILY NITROGLYCERIN SubLingual (Nitroglycerin) 0.4 Mg Tab.subl 0.4 Mg SL PRN Q5MIN PRN Atorvastatin Calcium 20 Mg Tablet 20 Mg PO HS Potassium Chloride 10 Meq Capsule.er 10 Meq PO BID Aspir 81 (Aspirin) 81 Mg Tablet.dr 1 Tab PO DAILY Clopidogrel (Clopidogrel Bisulfate) 75 Mg Tablet 1 Tab PO DAILY Vitals/I & O Vital Sign - Last 24 Hours 12/08/17 12/08/17 12/08/17 12/08/17 19:00 20:00 21:15 21:15 Temp 98.6 98.6 Pulse 57 57 Resp 20 18 B/P (MAP) 162/62 (95) 162/62 Pulse Ox 97 97 O2 Delivery Room Air Nasal Cannula Nasal Cannula O2 Flow Rate 3.0 3.0 12/08/17 12/09/17 12/09/17 12/09/17 23:05 03:06 04:15 07:00 Temp 98.6 98.3 98.3 98.6 98.3 98.3 Pulse 60 60 60 Resp 20 20 18 20 B/P (MAP) 126/47 (73) 138/60 (86) 152/68 (96) Pulse Ox 99 100 100 98 O2 Delivery Nasal Cannula Nasal Cannula Nasal Cannula Nasal Cannula O2 Flow Rate 3.0 12/09/17 12/09/17 12/09/17 12/09/17 08:00 08:22 08:23 10:39 Pulse 60 60 Resp 20 B/P (MAP) 152/68 152/68 Pulse Ox 98 O2 Delivery Nasal Cannula Nasal Cannula O2 Flow Rate 3.0 3.0 12/09/17 12/09/17 12/09/17 12/09/17 11:00 11:48 15:00 17:38 Temp 98.7 98.3 98.7 98.3 Pulse 60 60 Resp 18 18 18 20 B/P (MAP) 121/48 (72) 136/52 (80) Pulse Ox 100 100 100 100 O2 Delivery Nasal Cannula Nasal Cannula Nasal Cannula Nasal Cannula O2 Flow Rate 3.0 3.0 Intake and Output 12/08/17 12/08/17 12/09/17 15:00 23:00 07:00 Intake Total 360 ml 350 ml Output Total 250 ml 0 ml Balance 360 ml 100 ml 0 ml LIZBET LINDSAY MD Dec 09, 2017 18:17
--- NOTE | 2017-12-09 18:23 | PDOC3 ---
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 Vitals Vitals Vital Signs Date Time Temp Pulse Resp B/P (MAP) Pulse Ox O2 Delivery O2 Flow Rate FiO2 12/09/17 08:23 60 152/68 12/09/17 07:00 98.3 20 98 Nasal Cannula 98.3 12/09/17 04:15 3.0 Physical Exam General: Alert, Oriented X3, Cooperative Heart: Regular rate, Normal S1, Normal S2 Lungs: Clear Abdomen: Normal bowel sounds, Soft Extremities: Other (1+ edema) Skin: No rashes, No breakdown, No significant lesion Brief Hospital Course Ms. Laguna is a 62 old [sex] who presented with [ ] Discharge Medications Current Medications Aspirin (Children'S Aspirin) 324 mg 1X ONCE PO ; Start 12/06/17 at 19:00; Stop 12/06/17 at 19:09; Status DC Fentanyl Citrate (Fentanyl 2ml Vial) 50 mcg 1X ONCE IV Last administered on at 19:54; Start 12/06/17 at 19:30; Stop 12/06/17 at 19:31; Status DC Nitroglycerin (Nitro-Bid Oint) 0.5 inch 1X ONCE TP ; Start 12/06/17 at 19:30; Stop 12/06/17 at 19:36; Status DC Furosemide (Lasix) 60 mg 1X ONCE IVP Last administered on 12/06/17at 21:12; Start 12/06/17 at 21:00; Stop 12/06/17 at 21:01; Status DC Fentanyl Citrate (Fentanyl 2ml Vial) 50 mcg PRN Q2HR PRN IV SEVERE PAIN; Start 12/06/17 at 21:30; Stop 12/07/17 at 06:39; Status DC Insulin Human Lispro (HumaLOG) 0-5 UNITS TIDWMEALS SQ Last administered on 12/09at 17:43; Start 12/07/17 at 08:00 Dextrose (Dextrose 50%-Water Syringe) 12.5 gm PRN Q15MIN PRN IV SEE COMMENTS Last administered on 12/07/17at 17:08; Start 12/06/17 at 21:30 Fentanyl Citrate (Fentanyl 2ml Vial) 50 mcg 1X ONCE IV Last administered on at 22:21; Start 12/06/17 at 22:00; Stop 12/06/17 at 22:01; Status DC Aspirin (Ecotrin) 81 mg DAILY PO Last administered on 12/09/17at 07:49; Start at 09:00 Atorvastatin Calcium (Lipitor) 20 mg HS PO Last administered on 12/08/17at 21:16 ; Start 12/07/17 at 21:00 Clopidogrel Bisulfate (Plavix) 75 mg DAILY PO Last administered on 12/09/17at 07 :55; Start 12/07/17 at 09:00 Ferrous Sulfate (Feosol) 325 mg DAILY PO Last administered on 12/09/17at 07:50; Start 12/07/17 at 09:00 Furosemide (Lasix) 60 mg DAILY PO Last administered on 12/07/17at 09:14; Start 12/07/17 at 09:00; Stop 12/07/17 at 11:33; Status DC Glimepiride (Amaryl) 2 mg DAILY PO Last administered on 12/09/17at 07:51; Start 12/07/17 at 09:00 Losartan Potassium (Cozaar) 50 mg DAILY PO Last administered on 12/09/17at 08:22 ; Start 12/07/17 at 09:00 Metoprolol Tartrate (Lopressor) 25 mg BID PO Last administered on 12/09/17at 08: 23; Start 12/07/17 at 09:00 Nitroglycerin (Nitrostat) 0.4 mg PRN Q5MIN PRN SL CHEST PAIN; Start 12/07/17 at 00:00 Oxycodone/ Acetaminophen (Percocet 10/325) 1 tab PRN Q6HRS PRN PO SEVERE PAIN Last administered on 12/08/17at 08:31; Start 12/07/17 at 00:00; Stop 12/08/17 at 10:46; Status DC Potassium Chloride (Klor-Con) 10 meq BID PO Last administered on 12/09/17at 07: 53; Start 12/07/17 at 09:00 Non-Formulary Medication (Albuterol Sulfate (Albuterol Sulfate Conc Neb Soln)) 5 mg PRN PRN NEB WHEEZING; Start 12/07/17 at 00:00; Status UNV Insulin Human Lispro (HumaLOG) 10 units TIDWMEALS SQ Last administered on at 08:45; Start 12/07/17 at 08:00; Stop 12/08/17 at 10:46; Status DC Insulin Glargine (Lantus) 15 units BID SQ Last administered on 12/09/17at 08:27 ; Start 12/07/17 at 09:00 Pantoprazole Sodium (Protonix) 40 mg DAILYAC PO Last administered on 12/09/17at 07:50; Start 12/07/17 at 07:30 Albuterol Sulfate (Ventolin Neb Soln) 2.5 mg PRN Q4HRS PRN NEB SHORTNESS OF BREATH Last administered on 12/08/17at 10:56; Start 12/07/17 at 00:15 Guaifenesin (Robitussin Dm) 10 ml PRN Q6HRS PRN PO COUGH; Start 12/07/17 at 08: 45 Ondansetron HCl (Zofran) 4 mg PRN Q6HRS PRN IV NAUSEA/VOMITING; Start 12/07/17 at 08:45 Ondansetron HCl (Zofran Odt) 4 mg PRN Q6HRS PRN PO NAUSEA/VOMITING; Start 12/07 at 08:45 Acetaminophen (Tylenol) 500 mg PRN Q6HRS PRN PO MILD PAIN / TEMP; Start at 08:45 Lidocaine (Lidoderm) 1 patch DAILY PRN TD BACK PAIN Last administered on at 07:48; Start 12/07/17 at 08:45 Miscellaneous (Lidoderm Patch Removal) 1 ea QHS MC ; Start 12/07/17 at 21:00 Furosemide (Lasix) 60 mg DAILY IVP Last administered on 12/09/17at 07:51; Start 12/08/17 at 09:00 Diphenhydramine HCl (Benadryl) 25 mg PRN QHS PRN PO INSOMNIA; Start 12/07/17 at 11:45 Oxycodone/ Acetaminophen (Percocet 5/325) 1 tab 1X ONCE PO Last administered on 12/07/17at 12:02; Start 12/07/17 at 11:45; Stop 12/07/17 at 11:46; Status DC Insulin Human Lispro (HumaLOG) 5 units TIDWMEALS SQ Last administered on at 17:42; Start 12/08/17 at 12:00 Oxycodone/ Acetaminophen (Percocet 10/325) 2 tab PRN Q6HRS PRN PO SEVERE PAIN; Start 12/08/17 at 11:00; Stop 12/08/17 at 11:00; Status DC Oxycodone/ Acetaminophen (Percocet 10/325) 1 tab PRN Q6HRS PRN PO SEVERE PAIN Last administered on 12/09/17at 17:38; Start 12/08/17 at 11:00 Sodium Chloride 1,000 ml @ 100 mls/hr Q10H IV ; Start 12/09/17 at 11:30; Status Cancel Active Scripts Active Novolog Flexpen (Insulin Aspart) 100 Unit/1 Ml Insuln.pen 10 Unit SQ TID 30 Days Levemir (Insulin Detemir) 100 Unit/1 Ml Vial 15 Unit SQ TID 30 Days [Pantoprazole] 40 MG Tablet.dr 40 Mg PO DAILYAC 30 Days Amaryl (Glimepiride) 2 Mg Tablet 2 Mg PO DAILY 30 Days Reported Percocet 10-325 Mg Tablet (Oxycodone/Acetaminophen) 1 Each Tablet 1 Tab PO PRN Q6HRS Furosemide 80 Mg Tablet 80 Mg PO DAILY Albuterol Sulfate Conc Neb Soln (Albuterol Sulfate) 2.5 Mg/0.5 Ml Vial.neb 5 Mg NEB PRN PRN Losartan Potassium 50 Mg Tablet 50 Mg PO DAILY Metoprolol Tartrate 25 Mg Tablet 1 Tab PO BID Ferrous Sulfate 325 Mg Tablet 1 Tab PO DAILY NITROGLYCERIN SubLingual (Nitroglycerin) 0.4 Mg Tab.subl 0.4 Mg SL PRN Q5MIN PRN Atorvastatin Calcium 20 Mg Tablet 20 Mg PO HS Potassium Chloride 10 Meq Capsule.er 10 Meq PO BID Aspir 81 (Aspirin) 81 Mg Tablet.dr 1 Tab PO DAILY Clopidogrel (Clopidogrel Bisulfate) 75 Mg Tablet 1 Tab PO DAILY Vital Signs Vital Signs Date Time Temp Pulse Resp B/P (MAP) Pulse Ox O2 Delivery O2 Flow Rate FiO2 12/09/17 17:38 20 100 Nasal Cannula 3.0 12/09/17 15:00 98.3 60 136/52 (80) 98.3 Labs Laboratory Tests Test 12/07/17 20:14 12/08/17 08:14 12/08/17 11:20 12/08/17 12:00 Glucose (Fingerstick) 182 mg/dL (70-99) 125 mg/dL (70-99) 189 mg/dL (70-99) White Blood Count 8.4 x10^3/uL (4.0-11.0) Red Blood Count 4.19 x10^6/uL (3.50-5.40) Hemoglobin 11.4 g/dL (12.0-15.5) Hematocrit 35.5 % (36.0-47.0) Mean Corpuscular Volume 85 fL (79-100) Mean Corpuscular Hemoglobin 27 pg (25-35) Mean Corpuscular Hemoglobin Concent 32 g/dL (31-37) Red Cell Distribution Width 16.2 % (11.5-14.5) Platelet Count 298 x10^3/uL (140-400) Neutrophils (%) (Auto) 72 % (31-73) Lymphocytes (%) (Auto) 19 % (24-48) Monocytes (%) (Auto) 8 % (0-9) Eosinophils (%) (Auto) 1 % (0-3) Basophils (%) (Auto) 1 % (0-3) Neutrophils # (Auto) 6.0 x10^3uL (1.8-7.7) Lymphocytes # (Auto) 1.6 x10^3/uL (1.0-4.8) Monocytes # (Auto) 0.7 x10^3/uL (0.0-1.1) Eosinophils # (Auto) 0.1 x10^3/uL (0.0-0.7) Basophils # (Auto) 0.1 x10^3/uL (0.0-0.2) Sodium Level 138 mmol/L (136-145) Potassium Level 4.1 mmol/L (3.5-5.1) Chloride Level 97 mmol/L (98-107) Carbon Dioxide Level 37 mmol/L (21-32) Anion Gap 4 (6-14) Blood Urea Nitrogen 13 mg/dL (7-20) Creatinine 0.8 mg/dL (0.6-1.0) Estimated GFR (Cockcroft-Gault) 87.7 Glucose Level 161 mg/dL (70-99) Calcium Level 9.7 mg/dL (8.5-10.1) Test 12/08/17 16:55 12/08/17 20:23 12/09/17 05:35 12/09/17 07:28 Glucose (Fingerstick) 176 mg/dL (70-99) 189 mg/dL (70-99) 116 mg/dL (70-99) White Blood Count 6.0 x10^3/uL (4.0-11.0) Red Blood Count 3.89 x10^6/uL (3.50-5.40) Hemoglobin 10.4 g/dL (12.0-15.5) Hematocrit 33.2 % (36.0-47.0) Mean Corpuscular Volume 86 fL (79-100) Mean Corpuscular Hemoglobin 27 pg (25-35) Mean Corpuscular Hemoglobin Concent 31 g/dL (31-37) Red Cell Distribution Width 16.0 % (11.5-14.5) Platelet Count 279 x10^3/uL (140-400) Neutrophils (%) (Auto) 67 % (31-73) Lymphocytes (%) (Auto) 23 % (24-48) Monocytes (%) (Auto) 9 % (0-9) Eosinophils (%) (Auto) 2 % (0-3) Basophils (%) (Auto) 0 % (0-3) Neutrophils # (Auto) 4.0 x10^3uL (1.8-7.7) Lymphocytes # (Auto) 1.4 x10^3/uL (1.0-4.8) Monocytes # (Auto) 0.5 x10^3/uL (0.0-1.1) Eosinophils # (Auto) 0.1 x10^3/uL (0.0-0.7) Basophils # (Auto) 0.0 x10^3/uL (0.0-0.2) Sodium Level 139 mmol/L (136-145) Potassium Level 4.2 mmol/L (3.5-5.1) Chloride Level 99 mmol/L (98-107) Carbon Dioxide Level 41 mmol/L (21-32) Anion Gap (6-14) Blood Urea Nitrogen 14 mg/dL (7-20) Creatinine 0.8 mg/dL (0.6-1.0) Estimated GFR (Cockcroft-Gault) 87.7 Glucose Level 116 mg/dL (70-99) Calcium Level 9.1 mg/dL (8.5-10.1) Test 12/09/17 11:22 12/09/17 16:51 Glucose (Fingerstick) 129 mg/dL (70-99) 167 mg/dL (70-99) Laboratory Tests Test 12/08/17 20:23 12/09/17 05:35 12/09/17 07:28 12/09/17 11:22 Glucose (Fingerstick) 189 mg/dL (70-99) 116 mg/dL (70-99) 129 mg/dL (70-99) White Blood Count 6.0 x10^3/uL (4.0-11.0) Red Blood Count 3.89 x10^6/uL (3.50-5.40) Hemoglobin 10.4 g/dL (12.0-15.5) Hematocrit 33.2 % (36.0-47.0) Mean Corpuscular Volume 86 fL (79-100) Mean Corpuscular Hemoglobin 27 pg (25-35) Mean Corpuscular Hemoglobin Concent 31 g/dL (31-37) Red Cell Distribution Width 16.0 % (11.5-14.5) Platelet Count 279 x10^3/uL (140-400) Neutrophils (%) (Auto) 67 % (31-73) Lymphocytes (%) (Auto) 23 % (24-48) Monocytes (%) (Auto) 9 % (0-9) Eosinophils (%) (Auto) 2 % (0-3) Basophils (%) (Auto) 0 % (0-3) Neutrophils # (Auto) 4.0 x10^3uL (1.8-7.7) Lymphocytes # (Auto) 1.4 x10^3/uL (1.0-4.8) Monocytes # (Auto) 0.5 x10^3/uL (0.0-1.1) Eosinophils # (Auto) 0.1 x10^3/uL (0.0-0.7) Basophils # (Auto) 0.0 x10^3/uL (0.0-0.2) Sodium Level 139 mmol/L (136-145) Potassium Level 4.2 mmol/L (3.5-5.1) Chloride Level 99 mmol/L (98-107) Carbon Dioxide Level 41 mmol/L (21-32) Anion Gap (6-14) Blood Urea Nitrogen 14 mg/dL (7-20) Creatinine 0.8 mg/dL (0.6-1.0) Estimated GFR (Cockcroft-Gault) 87.7 Glucose Level 116 mg/dL (70-99) Calcium Level 9.1 mg/dL (8.5-10.1) Test 12/09/17 16:51 Glucose (Fingerstick) 167 mg/dL (70-99) Allergies Allergies Coded Allergies Type Severity Reaction Last Updated Verified ibuprofen Adverse Reaction Intermediate Nausea and Vomiting 12/02/17 Yes Disposition/Orders: D/C to Home JHON ZAPIEN MD Dec 09, 2017 18:23
[2017-12-09 19:00] VITALS: BP 157/72
--- NOTE | 2017-12-09 19:11 | DISCH ---
DISCHARGE WITH HOME HEALTH DISCHARGE INFORMATION: Discharge Date: Dec 09, 2017 Condition on Discharge: Stable CODE STATUS: Code Status: Full HOME HEALTH: Face to Face: I certify this patient is under my care and that I, or a nurse practitioner or physician's clinical trial assistant working with me, had a face to face encounter that meets the physician face to face encounter requirements with this patient on []. Medical Complications: CHF Physical Therapy For: Evalulation/Treatment Occupational Therapy For: Evaluation/Treatment Speech Language Pathology For: Evaluation/Treatment Home Health Aide For: Self-care CENTER MAKER HAND For: Community Resources Pt Meets Homebound Status: Limited distance walking POST DISCHARGE ORDERS: Activity Instructions for Disc: Activity as tolerated Weight Bearing Status after Di: As tolerated DIET AFTER DISCHARGE: Low Sodium 2 gm Wound/Incision Care: May get incision wet CHECKS AFTER DISCHARGE: Checks after discharge: Check blood press - daily, Check blood sugar, ac/hs, Weigh Yourself Daily TREATMENT/EQUIPMENT ORDERS: Adaptive Equipment Issued: None Discharge Respiratory Equipmen: Oxygen CERTIFICATION STATEMENT: Certification Statement: Certification Statement: Based on the above finding, I certify that this patient is confined to the home and needs intermittent half-way care, physical therapy and/or speech therapy, or continues to need occupational therapy.~ This patient is under my care, and I have initiated the establishment of the plan of care.~ This patient will be followed by myself or a community physician who will periodically review the plan of care. Home Meds Active Scripts Insulin Aspart (NOVOLOG FLEXPEN) 100 Unit/1 Ml Insuln.pen, 10 UNIT SQ TID for 30 Days, SYR Prov:CATHIE KNIGHT MD 11/17/17 Insulin Detemir (LEVEMIR) 100 Unit/1 Ml Vial, 15 UNIT SQ TID for 30 Days, VIAL Prov:CATHIE KNIGHT MD 11/17/17 [Pantoprazole] 40 [address].DR Dudley Conflict Check, 40 MG PO DAILYAC for 30 Days Prov:RADHA PIERRE MD 10/29/17 Glimepiride (AMARYL) 2 Mg Tablet, 2 MG PO DAILY for 30 Days, #30 TAB Prov:RADHA PIERRE MD 07/04/17 Reported Medications Oxycodone/Apap 10-325 (PERCOCET 10-325 MG TABLET) 1 Each Tablet, 1 TAB PO PRN Q6HRS, #40 TAB 12/06/17 Furosemide (FUROSEMIDE) 80 Mg Tablet, 80 MG PO DAILY, TAB 10/09/17 Albuterol Sulfate (ALBUTEROL SULFATE CONC NEB SOLN) 2.5 Mg/0.5 Ml Vial.neb, 5 MG NEB PRN PRN for WHEEZING, EACH 0 Refills 10/07/17 Losartan Potassium (LOSARTAN POTASSIUM) 50 Mg Tablet, 50 MG PO DAILY, TAB 10/07/17 Metoprolol Tartrate (METOPROLOL TARTRATE) 25 Mg Tablet, 1 TAB PO BID, #180 TAB 1 Refill 07/03/17 Ferrous Sulfate (FERROUS SULFATE) 325 Mg Tablet, 1 TAB PO DAILY, #30 TAB 3 Refills 11/01/16 Nitroglycerin (NITROGLYCERIN SubLingual) 0.4 Mg Tab.subl, 0.4 MG SL PRN Q5MIN PRN for CHEST PAIN, BOTTLE 11/01/16 Atorvastatin Calcium (ATORVASTATIN CALCIUM) 20 Mg Tablet, 20 MG PO HS for FOR CHOLESTEROL, #30 TAB 0 Refills 10/28/16 Potassium Chloride (POTASSIUM CHLORIDE) 10 Meq Capsule.er, 10 MEQ PO BID, TAB.SR 10/28/16 Aspirin (ASPIR 81) 81 Mg Tablet.dr, 1 TAB PO DAILY, #30 TAB 5 Refills 10/28/16 Clopidogrel Bisulfate (CLOPIDOGREL) 75 Mg Tablet, 1 TAB PO DAILY, #90 TAB 1 Refill 10/28/16 JHON ZAPIEN MD Dec 09, 2017 19:11
[2017-12-09] MEDS: PATCH REMOVAL. MC SCH (21:00)
[2017-12-09] MEDS: ATORVASTATIN CALCIUM 20 MG TABLET PO SCH (21:17)
[2017-12-09 23:04] VITALS: BP 134/42
[2017-12-10 03:09] VITALS: BP 114/46
[2017-12-10] MEDS: oxyCODONE/APAP 10/325 1 TAB TABLET PO PRN ×3 (05:45→17:27)
[2017-12-10 07:00] VITALS: BP 157/69
[2017-12-10] MEDS: INSULIN LISPRO 300 UNITS/3 ML INSULN.PEN. SQ SCH ×6 (08:00→17:30)
[2017-12-10] MEDS: PANTOPRAZOLE 40 MG TABLET.DR. PO SCH (08:10)
[2017-12-10] MEDS: METOPROLOL TART IMMED RELEASE 25 MG TABLET. PO SCH (08:11)
[2017-12-10] MEDS: POTASSIUM CHLORIDE 10 MEQ TABLET.ER. PO SCH (08:11)
[2017-12-10] MEDS: LOSARTAN POTASSIUM 50 MG TABLET. PO SCH (08:11)
[2017-12-10] MEDS: GLIMEPIRIDE 2 MG TABLET. PO SCH (08:11)
[2017-12-10] MEDS: CLOPIDOGREL BISULFATE 75 MG TABLET PO SCH (08:12)
[2017-12-10] MEDS: FERROUS SULFATE 325 MG TABLET. PO SCH (08:12)
[2017-12-10] MEDS: ASPIRIN ENTERIC COATED 81 MG TABLET.DR. PO SCH (08:12)
[2017-12-10] MEDS: INSULIN GLARGINE 300 UNITS/3 ML INSULN.PEN. SQ SCH (08:20)
--- NOTE | 2017-12-10 09:58 | PDOC ---
PROGRESS NOTES Subjective Subjective She admits some help with left shoulder area pain. Objective Objective Vital Signs Date Time Temp Pulse Resp B/P (MAP) Pulse Ox O2 Delivery O2 Flow Rate FiO2 12/10/17 08:11 60 157/69 12/10/17 08:08 Nasal Cannula 3.0 12/10/17 08:06 100 12/10/17 07:00 98.2 18 98.2 Intake and Output 12/10/17 07:00 Intake Total 800 ml Output Total 2 ml Balance 798 ml Intake Oral 800 ml Output Urine Total 2 ml # Voids 2 Physical Exam Physical Exam She is supine in bed and does not seem to be in any acute distress and she continues with left posterior shoulder girdle muscle area tenderness and stiffness of left shoulder. Plan Plan of Care I have reviewed with her home exercises and she would like to try them before out patient physical therapy. Comment Review of Relevant I have reviewed the following items nolan (where applicable) has been applied. Labs Laboratory Tests Test 12/08/17 11:20 12/08/17 12:00 12/08/17 16:55 12/08/17 20:23 Glucose (Fingerstick) 189 mg/dL (70-99) 176 mg/dL (70-99) 189 mg/dL (70-99) White Blood Count 8.4 x10^3/uL (4.0-11.0) Red Blood Count 4.19 x10^6/uL (3.50-5.40) Hemoglobin 11.4 g/dL (12.0-15.5) Hematocrit 35.5 % (36.0-47.0) Mean Corpuscular Volume 85 fL (79-100) Mean Corpuscular Hemoglobin 27 pg (25-35) Mean Corpuscular Hemoglobin Concent 32 g/dL (31-37) Red Cell Distribution Width 16.2 % (11.5-14.5) Platelet Count 298 x10^3/uL (140-400) Neutrophils (%) (Auto) 72 % (31-73) Lymphocytes (%) (Auto) 19 % (24-48) Monocytes (%) (Auto) 8 % (0-9) Eosinophils (%) (Auto) 1 % (0-3) Basophils (%) (Auto) 1 % (0-3) Neutrophils # (Auto) 6.0 x10^3uL (1.8-7.7) Lymphocytes # (Auto) 1.6 x10^3/uL (1.0-4.8) Monocytes # (Auto) 0.7 x10^3/uL (0.0-1.1) Eosinophils # (Auto) 0.1 x10^3/uL (0.0-0.7) Basophils # (Auto) 0.1 x10^3/uL (0.0-0.2) Sodium Level 138 mmol/L (136-145) Potassium Level 4.1 mmol/L (3.5-5.1) Chloride Level 97 mmol/L (98-107) Carbon Dioxide Level 37 mmol/L (21-32) Anion Gap 4 (6-14) Blood Urea Nitrogen 13 mg/dL (7-20) Creatinine 0.8 mg/dL (0.6-1.0) Estimated GFR (Cockcroft-Gault) 87.7 Glucose Level 161 mg/dL (70-99) Calcium Level 9.7 mg/dL (8.5-10.1) Test 12/09/17 05:35 12/09/17 07:28 12/09/17 11:22 12/09/17 16:51 White Blood Count 6.0 x10^3/uL (4.0-11.0) Red Blood Count 3.89 x10^6/uL (3.50-5.40) Hemoglobin 10.4 g/dL (12.0-15.5) Hematocrit 33.2 % (36.0-47.0) Mean Corpuscular Volume 86 fL (79-100) Mean Corpuscular Hemoglobin 27 pg (25-35) Mean Corpuscular Hemoglobin Concent 31 g/dL (31-37) Red Cell Distribution Width 16.0 % (11.5-14.5) Platelet Count 279 x10^3/uL (140-400) Neutrophils (%) (Auto) 67 % (31-73) Lymphocytes (%) (Auto) 23 % (24-48) Monocytes (%) (Auto) 9 % (0-9) Eosinophils (%) (Auto) 2 % (0-3) Basophils (%) (Auto) 0 % (0-3) Neutrophils # (Auto) 4.0 x10^3uL (1.8-7.7) Lymphocytes # (Auto) 1.4 x10^3/uL (1.0-4.8) Monocytes # (Auto) 0.5 x10^3/uL (0.0-1.1) Eosinophils # (Auto) 0.1 x10^3/uL (0.0-0.7) Basophils # (Auto) 0.0 x10^3/uL (0.0-0.2) Sodium Level 139 mmol/L (136-145) Potassium Level 4.2 mmol/L (3.5-5.1) Chloride Level 99 mmol/L (98-107) Carbon Dioxide Level 41 mmol/L (21-32) Anion Gap (6-14) Blood Urea Nitrogen 14 mg/dL (7-20) Creatinine 0.8 mg/dL (0.6-1.0) Estimated GFR (Cockcroft-Gault) 87.7 Glucose Level 116 mg/dL (70-99) Calcium Level 9.1 mg/dL (8.5-10.1) Glucose (Fingerstick) 116 mg/dL (70-99) 129 mg/dL (70-99) 167 mg/dL (70-99) Test 12/09/17 20:21 12/10/17 07:33 Glucose (Fingerstick) 262 mg/dL (70-99) 96 mg/dL (70-99) Laboratory Tests Test 12/09/17 11:22 12/09/17 16:51 12/09/17 20:21 12/10/17 07:33 Glucose (Fingerstick) 129 mg/dL (70-99) 167 mg/dL (70-99) 262 mg/dL (70-99) 96 mg/dL (70-99) Medications Current Medications Aspirin (Children'S Aspirin) 324 mg 1X ONCE PO ; Start 12/06/17 at 19:00; Stop 12/06/17 at 19:09; Status DC Fentanyl Citrate (Fentanyl 2ml Vial) 50 mcg 1X ONCE IV Last administered on at 19:54; Start 12/06/17 at 19:30; Stop 12/06/17 at 19:31; Status DC Nitroglycerin (Nitro-Bid Oint) 0.5 inch 1X ONCE TP ; Start 12/06/17 at 19:30; Stop 12/06/17 at 19:36; Status DC Furosemide (Lasix) 60 mg 1X ONCE IVP Last administered on 12/06/17 21:12; Start 12/06/17 at 21:00; Stop 12/06/17 at 21:01; Status DC Fentanyl Citrate (Fentanyl 2ml Vial) 50 mcg PRN Q2HR PRN IV SEVERE PAIN; Start 12/06/17 at 21:30; Stop 12/07/17 at 06:39; Status DC Insulin Human Lispro (HumaLOG) 0-5 UNITS TIDWMEALS SQ Last administered on 12/09at 17:43; Start 12/07/17 at 08:00 Dextrose (Dextrose 50%-Water Syringe) 12.5 gm PRN Q15MIN PRN IV SEE COMMENTS Last administered on 12/07/17 17:08; Start 12/06/17 at 21:30 Fentanyl Citrate (Fentanyl 2ml Vial) 50 mcg 1X ONCE IV Last administered on at 22:21; Start 12/06/17 at 22:00; Stop 12/06/17 at 22:01; Status DC Aspirin (Ecotrin) 81 mg DAILY PO Last administered on 12/10/17 08:12; Start at 09:00 Atorvastatin Calcium (Lipitor) 20 mg HS PO Last administered on 12/09/17 21:17 ; Start 12/07/17 at 21:00 Clopidogrel Bisulfate (Plavix) 75 mg DAILY PO Last administered on 12/10/17at 08 :12; Start 12/07/17 at 09:00 Ferrous Sulfate (Feosol) 325 mg DAILY PO Last administered on 12/10/17at 08:12; Start 12/07/17 at 09:00 Furosemide (Lasix) 60 mg DAILY PO Last administered on 12/07/17at 09:14; Start 12/07/17 at 09:00; Stop 12/07/17 at 11:33; Status DC Glimepiride (Amaryl) 2 mg DAILY PO Last administered on 12/10/17 08:11; Start 12/07/17 at 09:00 Losartan Potassium (Cozaar) 50 mg DAILY PO Last administered on 12/10/17at 08:11 ; Start 12/07/17 at 09:00 Metoprolol Tartrate (Lopressor) 25 mg BID PO Last administered on 12/10/17at 08: 11; Start 12/07/17 at 09:00 Nitroglycerin (Nitrostat) 0.4 mg PRN Q5MIN PRN SL CHEST PAIN; Start 12/07/17 at 00:00 Oxycodone/ Acetaminophen (Percocet 10/325) 1 tab PRN Q6HRS PRN PO SEVERE PAIN Last administered on 12/08/17at 08:31; Start 12/07/17 at 00:00; Stop 12/08/17 at 10:46; Status DC Potassium Chloride (Klor-Con) 10 meq BID PO Last administered on 12/10/17at 08: 11; Start 12/07/17 at 09:00 Non-Formulary Medication (Albuterol Sulfate (Albuterol Sulfate Conc Neb Soln)) 5 mg PRN PRN NEB WHEEZING; Start 12/07/17 at 00:00; Status UNV Insulin Human Lispro (HumaLOG) 10 units TIDWMEALS SQ Last administered on at 08:45; Start 12/07/17 at 08:00; Stop 12/08/17 at 10:46; Status DC Insulin Glargine (Lantus) 15 units BID SQ Last administered on 12/10/17at 08:20 ; Start 12/07/17 at 09:00 Pantoprazole Sodium (Protonix) 40 mg DAILYAC PO Last administered on 12/10/17at 08:10; Start 12/07/17 at 07:30 Albuterol Sulfate (Ventolin Neb Soln) 2.5 mg PRN Q4HRS PRN NEB SHORTNESS OF BREATH Last administered on 12/08/17at 10:56; Start 12/07/17 at 00:15 Guaifenesin (Robitussin Dm) 10 ml PRN Q6HRS PRN PO COUGH; Start 12/07/17 at 08: 45 Ondansetron HCl (Zofran) 4 mg PRN Q6HRS PRN IV NAUSEA/VOMITING; Start 12/07/17 at 08:45 Ondansetron HCl (Zofran Odt) 4 mg PRN Q6HRS PRN PO NAUSEA/VOMITING; Start 12/07 at 08:45 Acetaminophen (Tylenol) 500 mg PRN Q6HRS PRN PO MILD PAIN / TEMP; Start at 08:45 Lidocaine (Lidoderm) 1 patch DAILY PRN TD BACK PAIN Last administered on at 07:48; Start 12/07/17 at 08:45 Miscellaneous (Lidoderm Patch Removal) 1 ea QHS MC Last administered on at 21:00; Start 12/07/17 at 21:00 Furosemide (Lasix) 60 mg DAILY IVP Last administered on 12/09/17at 07:51; Start 12/08/17 at 09:00 Diphenhydramine HCl (Benadryl) 25 mg PRN QHS PRN PO INSOMNIA; Start 12/07/17 at 11:45 Oxycodone/ Acetaminophen (Percocet 5/325) 1 tab 1X ONCE PO Last administered on 12/07/17at 12:02; Start 12/07/17 at 11:45; Stop 12/07/17 at 11:46; Status DC Insulin Human Lispro (HumaLOG) 5 units TIDWMEALS SQ Last administered on at 08:19; Start 12/08/17 at 12:00 Oxycodone/ Acetaminophen (Percocet 10/325) 2 tab PRN Q6HRS PRN PO SEVERE PAIN; Start 12/08/17 at 11:00; Stop 12/08/17 at 11:00; Status DC Oxycodone/ Acetaminophen (Percocet 10/325) 1 tab PRN Q6HRS PRN PO SEVERE PAIN Last administered on 12/10/17at 05:45; Start 12/08/17 at 11:00 Sodium Chloride 1,000 ml @ 100 mls/hr Q10H IV ; Start 12/09/17 at 11:30; Status Cancel Active Scripts Active Novolog Flexpen (Insulin Aspart) 100 Unit/1 Ml Insuln.pen 10 Unit SQ TID 30 Days Levemir (Insulin Detemir) 100 Unit/1 Ml Vial 15 Unit SQ TID 30 Days [Pantoprazole] 40 MG Tablet.dr 40 Mg PO DAILYAC 30 Days Amaryl (Glimepiride) 2 Mg Tablet 2 Mg PO DAILY 30 Days Reported Percocet 10-325 Mg Tablet (Oxycodone/Acetaminophen) 1 Each Tablet 1 Tab PO PRN Q6HRS Furosemide 80 Mg Tablet 80 Mg PO DAILY Albuterol Sulfate Conc Neb Soln (Albuterol Sulfate) 2.5 Mg/0.5 Ml Vial.neb 5 Mg NEB PRN PRN Losartan Potassium 50 Mg Tablet 50 Mg PO DAILY Metoprolol Tartrate 25 Mg Tablet 1 Tab PO BID Ferrous Sulfate 325 Mg Tablet 1 Tab PO DAILY NITROGLYCERIN SubLingual (Nitroglycerin) 0.4 Mg Tab.subl 0.4 Mg SL PRN Q5MIN PRN Atorvastatin Calcium 20 Mg Tablet 20 Mg PO HS Potassium Chloride 10 Meq Capsule.er 10 Meq PO BID Aspir 81 (Aspirin) 81 Mg Tablet. 1 Tab PO DAILY Clopidogrel (Clopidogrel Bisulfate) 75 Mg Tablet 1 Tab PO DAILY Vitals/I & O Vital Sign - Last 24 Hours 12/09/17 12/09/17 12/09/17 12/09/17 10:39 11:00 11:48 15:00 Temp 98.7 98.3 98.7 98.3 Pulse 60 60 Resp 20 18 18 B/P (MAP) 121/48 (72) 136/52 (80) Pulse Ox 98 100 100 O2 Delivery Nasal Cannula Nasal Cannula Nasal Cannula O2 Flow Rate 3.0 12/09/17 12/09/17 12/09/17 12/09/17 17:38 19:00 19:37 21:18 Temp 97.9 97.9 Pulse 60 60 Resp 20 20 B/P (MAP) 157/72 (100) 157/72 Pulse Ox 100 100 O2 Delivery Nasal Cannula Nasal Cannula Nasal Cannula O2 Flow Rate 3.0 3.0 12/09/17 12/09/17 12/10/17 12/10/17 23:04 23:46 00:46 03:09 Temp 98.6 98.2 98.6 98.2 Pulse 68 85 Resp 20 20 B/P (MAP) 134/42 (72) 114/46 (68) Pulse Ox 96 96 96 100 O2 Delivery Nasal Cannula Nasal Cannula Nasal Cannula O2 Flow Rate 3.0 12/10/17 12/10/17 12/10/17 12/10/17 05:45 07:00 08:06 08:08 Temp 98.2 98.2 Pulse 60 Resp 18 B/P (MAP) 157/69 (98) Pulse Ox 100 100 100 O2 Delivery Nasal Cannula Nasal Cannula Nasal Cannula Nasal Cannula O2 Flow Rate 3.0 3.0 3.0 12/10/17 12/10/17 08:11 08:11 Pulse 60 60 B/P (MAP) 157/69 157/69 Intake and Output 12/09/17 12/09/17 12/10/17 15:00 23:00 07:00 Intake Total 800 ml Output Total 2 ml Balance 798 ml TASHI RESTREPO MD Dec 10, 2017 09:58
[2017-12-10] MEDS: FUROSEMIDE 40 MG/4 ML VIAL. IVP SCH (10:16)
[2017-12-10 11:00] VITALS: BP 147/57
--- NOTE | 2017-12-10 11:00 | PDOC ---
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 Vitals Vitals Vital Signs Date Time Temp Pulse Resp B/P (MAP) Pulse Ox O2 Delivery O2 Flow Rate FiO2 12/10/17 08:11 60 157/69 12/10/17 08:08 Nasal Cannula 3.0 12/10/17 08:06 100 12/10/17 07:00 98.2 18 98.2 Physical Exam General: Alert, Oriented X3, Cooperative, No acute distress Heart: Regular rate, Normal S1, Normal S2 Lungs: Clear Abdomen: Normal bowel sounds, Soft Extremities: Other (1+ edema) Skin: No rashes, No breakdown, No significant lesion Labs LABS Laboratory Tests Test 12/09/17 11:22 12/09/17 16:51 12/09/17 20:21 12/10/17 07:33 Glucose (Fingerstick) 129 mg/dL (70-99) 167 mg/dL (70-99) 262 mg/dL (70-99) 96 mg/dL (70-99) Comment Review of Relevant I have reviewed the following items nolan (where applicable) has been applied. Labs Laboratory Tests Test 12/08/17 11:20 12/08/17 12:00 12/08/17 16:55 12/08/17 20:23 Glucose (Fingerstick) 189 mg/dL (70-99) 176 mg/dL (70-99) 189 mg/dL (70-99) White Blood Count 8.4 x10^3/uL (4.0-11.0) Red Blood Count 4.19 x10^6/uL (3.50-5.40) Hemoglobin 11.4 g/dL (12.0-15.5) Hematocrit 35.5 % (36.0-47.0) Mean Corpuscular Volume 85 fL (79-100) Mean Corpuscular Hemoglobin 27 pg (25-35) Mean Corpuscular Hemoglobin Concent 32 g/dL (31-37) Red Cell Distribution Width 16.2 % (11.5-14.5) Platelet Count 298 x10^3/uL (140-400) Neutrophils (%) (Auto) 72 % (31-73) Lymphocytes (%) (Auto) 19 % (24-48) Monocytes (%) (Auto) 8 % (0-9) Eosinophils (%) (Auto) 1 % (0-3) Basophils (%) (Auto) 1 % (0-3) Neutrophils # (Auto) 6.0 x10^3uL (1.8-7.7) Lymphocytes # (Auto) 1.6 x10^3/uL (1.0-4.8) Monocytes # (Auto) 0.7 x10^3/uL (0.0-1.1) Eosinophils # (Auto) 0.1 x10^3/uL (0.0-0.7) Basophils # (Auto) 0.1 x10^3/uL (0.0-0.2) Sodium Level 138 mmol/L (136-145) Potassium Level 4.1 mmol/L (3.5-5.1) Chloride Level 97 mmol/L (98-107) Carbon Dioxide Level 37 mmol/L (21-32) Anion Gap 4 (6-14) Blood Urea Nitrogen 13 mg/dL (7-20) Creatinine 0.8 mg/dL (0.6-1.0) Estimated GFR (Cockcroft-Gault) 87.7 Glucose Level 161 mg/dL (70-99) Calcium Level 9.7 mg/dL (8.5-10.1) Test 12/09/17 05:35 12/09/17 07:28 12/09/17 11:22 12/09/17 16:51 White Blood Count 6.0 x10^3/uL (4.0-11.0) Red Blood Count 3.89 x10^6/uL (3.50-5.40) Hemoglobin 10.4 g/dL (12.0-15.5) Hematocrit 33.2 % (36.0-47.0) Mean Corpuscular Volume 86 fL (79-100) Mean Corpuscular Hemoglobin 27 pg (25-35) Mean Corpuscular Hemoglobin Concent 31 g/dL (31-37) Red Cell Distribution Width 16.0 % (11.5-14.5) Platelet Count 279 x10^3/uL (140-400) Neutrophils (%) (Auto) 67 % (31-73) Lymphocytes (%) (Auto) 23 % (24-48) Monocytes (%) (Auto) 9 % (0-9) Eosinophils (%) (Auto) 2 % (0-3) Basophils (%) (Auto) 0 % (0-3) Neutrophils # (Auto) 4.0 x10^3uL (1.8-7.7) Lymphocytes # (Auto) 1.4 x10^3/uL (1.0-4.8) Monocytes # (Auto) 0.5 x10^3/uL (0.0-1.1) Eosinophils # (Auto) 0.1 x10^3/uL (0.0-0.7) Basophils # (Auto) 0.0 x10^3/uL (0.0-0.2) Sodium Level 139 mmol/L (136-145) Potassium Level 4.2 mmol/L (3.5-5.1) Chloride Level 99 mmol/L (98-107) Carbon Dioxide Level 41 mmol/L (21-32) Anion Gap (6-14) Blood Urea Nitrogen 14 mg/dL (7-20) Creatinine 0.8 mg/dL (0.6-1.0) Estimated GFR (Cockcroft-Gault) 87.7 Glucose Level 116 mg/dL (70-99) Calcium Level 9.1 mg/dL (8.5-10.1) Glucose (Fingerstick) 116 mg/dL (70-99) 129 mg/dL (70-99) 167 mg/dL (70-99) Test 12/09/17 20:21 12/10/17 07:33 Glucose (Fingerstick) 262 mg/dL (70-99) 96 mg/dL (70-99) Laboratory Tests Test 12/09/17 11:22 12/09/17 16:51 12/09/17 20:21 12/10/17 07:33 Glucose (Fingerstick) 129 mg/dL (70-99) 167 mg/dL (70-99) 262 mg/dL (70-99) 96 mg/dL (70-99) Medications Current Medications Aspirin (Children'S Aspirin) 324 mg 1X ONCE PO ; Start 12/06/17 at 19:00; Stop 12/06/17 at 19:09; Status DC Fentanyl Citrate (Fentanyl 2ml Vial) 50 mcg 1X ONCE IV Last administered on at 19:54; Start 12/06/17 at 19:30; Stop 12/06/17 at 19:31; Status DC Nitroglycerin (Nitro-Bid Oint) 0.5 inch 1X ONCE TP ; Start 12/06/17 at 19:30; Stop 12/06/17 at 19:36; Status DC Furosemide (Lasix) 60 mg 1X ONCE IVP Last administered on 12/06/17at 21:12; Start 12/06/17 at 21:00; Stop 12/06/17 at 21:01; Status DC Fentanyl Citrate (Fentanyl 2ml Vial) 50 mcg PRN Q2HR PRN IV SEVERE PAIN; Start 12/06/17 at 21:30; Stop 12/07/17 at 06:39; Status DC Insulin Human Lispro (HumaLOG) 0-5 UNITS TIDWMEALS SQ Last administered on 12/09at 17:43; Start 12/07/17 at 08:00 Dextrose (Dextrose 50%-Water Syringe) 12.5 gm PRN Q15MIN PRN IV SEE COMMENTS Last administered on 12/07/17at 17:08; Start 12/06/17 at 21:30 Fentanyl Citrate (Fentanyl 2ml Vial) 50 mcg 1X ONCE IV Last administered on at 22:21; Start 12/06/17 at 22:00; Stop 12/06/17 at 22:01; Status DC Aspirin (Ecotrin) 81 mg DAILY PO Last administered on 12/10/17at 08:12; Start at 09:00 Atorvastatin Calcium (Lipitor) 20 mg HS PO Last administered on 12/09/17at 21:17 ; Start 12/07/17 at 21:00 Clopidogrel Bisulfate (Plavix) 75 mg DAILY PO Last administered on 12/10/17at 08 :12; Start 12/07/17 at 09:00 Ferrous Sulfate (Feosol) 325 mg DAILY PO Last administered on 12/10/17at 08:12; Start 12/07/17 at 09:00 Furosemide (Lasix) 60 mg DAILY PO Last administered on 12/07/17at 09:14; Start 12/07/17 at 09:00; Stop 12/07/17 at 11:33; Status DC Glimepiride (Amaryl) 2 mg DAILY PO Last administered on 12/10/17at 08:11; Start 12/07/17 at 09:00 Losartan Potassium (Cozaar) 50 mg DAILY PO Last administered on 12/10/17at 08:11 ; Start 12/07/17 at 09:00 Metoprolol Tartrate (Lopressor) 25 mg BID PO Last administered on 12/10/17at 08: 11; Start 12/07/17 at 09:00 Nitroglycerin (Nitrostat) 0.4 mg PRN Q5MIN PRN SL CHEST PAIN; Start 12/07/17 at 00:00 Oxycodone/ Acetaminophen (Percocet 10/325) 1 tab PRN Q6HRS PRN PO SEVERE PAIN Last administered on 12/08/17at 08:31; Start 12/07/17 at 00:00; Stop 12/08/17 at 10:46; Status DC Potassium Chloride (Klor-Con) 10 meq BID PO Last administered on 12/10/17at 08: 11; Start 12/07/17 at 09:00 Non-Formulary Medication (Albuterol Sulfate (Albuterol Sulfate Conc Neb Soln)) 5 mg PRN PRN NEB WHEEZING; Start 12/07/17 at 00:00; Status UNV Insulin Human Lispro (HumaLOG) 10 units TIDWMEALS SQ Last administered on at 08:45; Start 12/07/17 at 08:00; Stop 12/08/17 at 10:46; Status DC Insulin Glargine (Lantus) 15 units BID SQ Last administered on 12/10/17at 08:20 ; Start 12/07/17 at 09:00 Pantoprazole Sodium (Protonix) 40 mg DAILYAC PO Last administered on 12/10/17at 08:10; Start 12/07/17 at 07:30 Albuterol Sulfate (Ventolin Neb Soln) 2.5 mg PRN Q4HRS PRN NEB SHORTNESS OF BREATH Last administered on 12/08/17at 10:56; Start 12/07/17 at 00:15 Guaifenesin (Robitussin Dm) 10 ml PRN Q6HRS PRN PO COUGH; Start 12/07/17 at 08: 45 Ondansetron HCl (Zofran) 4 mg PRN Q6HRS PRN IV NAUSEA/VOMITING; Start 12/07/17 at 08:45 Ondansetron HCl (Zofran Odt) 4 mg PRN Q6HRS PRN PO NAUSEA/VOMITING; Start 12/07 at 08:45 Acetaminophen (Tylenol) 500 mg PRN Q6HRS PRN PO MILD PAIN / TEMP; Start at 08:45 Lidocaine (Lidoderm) 1 patch DAILY PRN TD BACK PAIN Last administered on at 07:48; Start 12/07/17 at 08:45 Miscellaneous (Lidoderm Patch Removal) 1 ea QHS MC Last administered on at 21:00; Start 12/07/17 at 21:00 Furosemide (Lasix) 60 mg DAILY IVP Last administered on 12/10/17at 10:16; Start 12/08/17 at 09:00 Diphenhydramine HCl (Benadryl) 25 mg PRN QHS PRN PO INSOMNIA; Start 12/07/17 at 11:45 Oxycodone/ Acetaminophen (Percocet 5/325) 1 tab 1X ONCE PO Last administered on 12/07/17at 12:02; Start 12/07/17 at 11:45; Stop 12/07/17 at 11:46; Status DC Insulin Human Lispro (HumaLOG) 5 units TIDWMEALS SQ Last administered on at 08:19; Start 12/08/17 at 12:00 Oxycodone/ Acetaminophen (Percocet 10/325) 2 tab PRN Q6HRS PRN PO SEVERE PAIN; Start 12/08/17 at 11:00; Stop 12/08/17 at 11:00; Status DC Oxycodone/ Acetaminophen (Percocet 10/325) 1 tab PRN Q6HRS PRN PO SEVERE PAIN Last administered on 12/10/17at 05:45; Start 12/08/17 at 11:00 Sodium Chloride 1,000 ml @ 100 mls/hr Q10H IV ; Start 12/09/17 at 11:30; Status Cancel Active Scripts Active Novolog Flexpen (Insulin Aspart) 100 Unit/1 Ml Insuln.pen 10 Unit SQ TID 30 Days Levemir (Insulin Detemir) 100 Unit/1 Ml Vial 15 Unit SQ TID 30 Days [Pantoprazole] 40 MG Tablet.dr 40 Mg PO DAILYAC 30 Days Amaryl (Glimepiride) 2 Mg Tablet 2 Mg PO DAILY 30 Days Reported Percocet 10-325 Mg Tablet (Oxycodone/Acetaminophen) 1 Each Tablet 1 Tab PO PRN Q6HRS Furosemide 80 Mg Tablet 80 Mg PO DAILY Albuterol Sulfate Conc Neb Soln (Albuterol Sulfate) 2.5 Mg/0.5 Ml Vial.neb 5 Mg NEB PRN PRN Losartan Potassium 50 Mg Tablet 50 Mg PO DAILY Metoprolol Tartrate 25 Mg Tablet 1 Tab PO BID Ferrous Sulfate 325 Mg Tablet 1 Tab PO DAILY NITROGLYCERIN SubLingual (Nitroglycerin) 0.4 Mg Tab.subl 0.4 Mg SL PRN Q5MIN PRN Atorvastatin Calcium 20 Mg Tablet 20 Mg PO HS Potassium Chloride 10 Meq Capsule.er 10 Meq PO BID Aspir 81 (Aspirin) 81 Mg Tablet.dr 1 Tab PO DAILY Clopidogrel (Clopidogrel Bisulfate) 75 Mg Tablet 1 Tab PO DAILY Vitals/I & O Vital Sign - Last 24 Hours 12/09/17 12/09/17 12/09/17 12/09/17 11:00 11:48 15:00 17:38 Temp 98.7 98.3 98.7 98.3 Pulse 60 60 Resp 18 18 20 B/P (MAP) 121/48 (72) 136/52 (80) Pulse Ox 100 100 100 O2 Delivery Nasal Cannula Nasal Cannula Nasal Cannula O2 Flow Rate 3.0 12/09/17 12/09/17 12/09/17 12/09/17 19:00 19:37 21:18 23:04 Temp 97.9 98.6 97.9 98.6 Pulse 60 60 68 Resp 20 20 B/P (MAP) 157/72 (100) 157/72 134/42 (72) Pulse Ox 100 96 O2 Delivery Nasal Cannula Nasal Cannula Nasal Cannula O2 Flow Rate 3.0 912/10/17 12/10/17 12/10/17 23:46 00:46 03:09 05:45 Temp 98.2 98.2 Pulse 85 Resp 20 B/P (MAP) 114/46 (68) Pulse Ox 96 96 100 100 O2 Delivery Nasal Cannula Nasal Cannula Nasal Cannula O2 Flow Rate 3.0 3.0 12/10/17 12/10/17 12/10/17 12/10/17 07:00 08:06 08:08 08:11 Temp 98.2 98.2 Pulse 60 60 Resp 18 B/P (MAP) 157/69 (98) 157/69 Pulse Ox 100 100 O2 Delivery Nasal Cannula Nasal Cannula Nasal Cannula O2 Flow Rate 3.0 3.0 12/10/17 08:11 Pulse 60 B/P (MAP) 157/69 Intake and Output 12/09/17 12/09/17 12/10/17 15:00 23:00 07:00 Intake Total 800 ml Output Total 2 ml Balance 798 ml JHON ZAPIEN MD Dec 10, 2017 11:00
[2017-12-10 15:00] VITALS: BP 119/38
== END 2017-12-10 18:32 | disposition home health service (06) | DRG 291 ==
LOC: ER 18:28 → 5 NORTH 21:30
PROVIDERS: ADMIT Internal Medicine; ATTEND Internal Medicine
DX: I13.0 Hypertensive heart and chronic kidney disease with heart failure and stage 1 through stage 4 chronic kidney disease, or unspecified chronic kidney disease (principal); I50.43 Acute on chronic combined systolic (congestive) and diastolic (congestive) heart failure; Z68.41 Body mass index [BMI] 40.0-44.9, adult; J96.11 Chronic respiratory failure with hypoxia; F11.20 Opioid dependence, uncomplicated; I25.10 Atherosclerotic heart disease of native coronary artery without angina pectoris; N18.9 Chronic kidney disease, unspecified; E78.5 Hyperlipidemia, unspecified; E66.01 Morbid (severe) obesity due to excess calories; R07.89 Other chest pain; G89.29 Other chronic pain; J44.9 Chronic obstructive pulmonary disease, unspecified; D64.9 Anemia, unspecified; Z79.4 Long term (current) use of insulin; E11.42 Type 2 diabetes mellitus with diabetic polyneuropathy; G62.9 Polyneuropathy, unspecified; M19.90 Unspecified osteoarthritis, unspecified site; M75.92 Shoulder lesion, unspecified, left shoulder; S46.912A Strain of unspecified muscle, fascia and tendon at shoulder and upper arm level, left arm, initial encounter; G47.33 Obstructive sleep apnea (adult) (pediatric); X58.XXXA Exposure to other specified factors, initial encounter; K21.9 Gastro-esophageal reflux disease without esophagitis; E11.22 Type 2 diabetes mellitus with diabetic chronic kidney disease; Z96.659 Presence of unspecified artificial knee joint; Z95.1 Presence of aortocoronary bypass graft; Z90.710 Acquired absence of both cervix and uterus; Y99.8 Other external cause status; Z90.49 Acquired absence of other specified parts of digestive tract; Z83.3 Family history of diabetes mellitus; Z79.899 Other long term (current) drug therapy; I25.2 Old myocardial infarction; Z99.81 Dependence on supplemental oxygen; Z88.6 Allergy status to analgesic agent; Y93.89 Activity, other specified; Y92.89 Other specified places as the place of occurrence of the external cause; Z71.51 Drug abuse counseling and surveillance of drug abuser
CPT/HCPCS: 36415; 71046; 80048; 80053; 82553; 82962; 83690; 83735; 83880; 84484; 85025; 85610; 93005; 94640; 94760; 96374; 97164; J1815; J1940; J3010; J7042; J7613; 97110; 97116; 97140; 99285-25

== ENCOUNTER 2018-01-12 13:25 | Inpatient (IN) | payer OTHER ==
[~2018-01-12] VITALS: Ht 162.6 cm; Wt 107.5 kg
[2018-01-12] MEDS ORDERED: ASPIRIN CHEWABLE 81 MG TABLET. PO ONE (14:30)
[2018-01-12] MEDS ORDERED: MORPHINE SULFATE 2 MG/ML VIAL. IV ONE (14:30)
[2018-01-12] MEDS ORDERED: LABETALOL 20 MG/4 ML DISP.SYRIN. IVP ONE (14:30)
[2018-01-12] MEDS ORDERED: NITROGLYCERIN OINT 1 GM PACKET. TP ONE (14:30)
[2018-01-12] MEDS ORDERED: ONDANSETRON PF 4 MG/2 ML VIAL. IV ONE (14:30)
--- NOTE | 2018-01-12 14:40 | PHYS DOC ---
Past Medical History Past Medical History: CHF, COPD, Diabetes-Type II, Hypertension, MS, Other Additional Past Medical Histor: O2 DEPENDENT 3 L PRN, chronic pain Past Surgical History: Cholecystectomy, Coronary Bypass Surgery, Hysterectomy, Knee Replacement, Pacemaker, Other Additional Past Surgical Histo: STENTS Smoking: Cigarettes (The patient is a nonsmoker.) Alcohol Use: None Drug Use: None Adult General Chief Complaint Chief Complaint: DYSPNEA/RESPIRATOY DISTRESS HPI HPI Patient presents to the emergency department for evaluation. The patient states that for the past 3-4 days she has had increasing dyspnea on exertion and chest pain on exertion. She describes the pain as a heaviness or pressure. She states that she has had a heart attack in the past, and stents placed, and her chest pain feels somewhat similar to her prior cardiac pain but not exactly the same. She has had some nausea but no vomiting. She has not had a cough. She denies any pleuritic pain. There are no alleviating or exacerbating factors to her symptoms, except as noted above. The patient does have a history of multiple frequent admissions at this facility, and some no some her last admission have been reviewed. She is requesting pain medication for her chest discomfort. She states that she took nitroglycerin this morning without improvement in her symptoms. Review of Systems Review of Systems Constitutional: Denies fever or chills [] Eyes: Denies change in visual acuity, redness, or eye pain [] HENT: Denies nasal congestion or sore throat [] Respiratory: Denies cough or pleuritic pain. Reports dyspnea on exertion.[] Cardiovascular: No additional information not addressed in HPI [] GI: Denies abdominal pain, vomiting, bloody stools or diarrhea [] : Denies dysuria or hematuria [] Musculoskeletal: Denies back pain or joint pain [] Integument: Denies rash or skin lesions [] Neurologic: Denies headache, focal weakness or sensory changes [] Endocrine: Denies polyuria or polydipsia [] All other systems were reviewed and found to be within normal limits, except as documented in this note. Current Medications Current Medications Current Medications Medications (Trade) Dose Ordered Sig/Susan Start Time Stop Time Status Last Admin Dose Admin Aspirin (Children'S Aspirin) 324 mg 1X ONCE 01/12/18 14:30 01/12/18 14:33 DC 01/12/18 15:05 324 MG Labetalol HCl (Normodyne Iv Push) 20 mg 1X ONCE 01/12/18 14:30 01/12/18 14:33 DC 01/12/18 14:49 20 MG Morphine Sulfate (Morphine Sulfate) 4 mg 1X ONCE 01/12/18 14:30 01/12/18 14:33 DC 01/12/18 15:36 4 MG Nitroglycerin (Nitro-Bid Oint) 1 inch 1X ONCE 01/12/18 14:30 01/12/18 14:33 DC 01/12/18 14:30 1 INCH Ondansetron HCl (Zofran) 4 mg 1X ONCE 01/12/18 14:30 01/12/18 14:33 DC 01/12/18 14:48 4 MG Allergies Allergies Allergies Coded Allergies Type Severity Reaction Last Updated Verified ibuprofen Adverse Reaction Intermediate Nausea and Vomiting 12/02/17 Yes Physical Exam Physical Exam PHYSICAL EXAM: CONSTITUTIONAL: Well developed, well nourished HEAD: normocephalic, atraumatic EENT: PERRL, EOMI. Conjunctivae normal color, sclerae non-icteric; moist mucous membranes. NECK: Supple, non-tender; no meningismus. LUNGS: Lungs CTA, breathing even and unlabored. Normal air movement. HEART: Regular rate and rhythm, no murmur CHEST: No deformity; non-tender ABDOMEN: The abdomen is soft, and non-tender, no masses or bruits. EXTREM: Normal ROM; no deformity, no calf tenderness. Normal pulses palpable in all extremities. There is mild bilateral pedal edema. SKIN: No rash; no diaphoresis NEURO: Alert; normal speech and cognition; CN's grossly intact; strength grossly intact without focal deficit. BACK: No CVA TTP. Current Patient Data Vital Signs Vital Signs Date Time Temp Pulse Resp B/P (MAP) Pulse Ox O2 Delivery O2 Flow Rate FiO2 01/12/18 15:36 20 95 Room Air 01/12/18 15:14 69 211/127 (155) 01/12/18 13:56 98.3 98.3 Lab Values Laboratory Tests Test 01/12/18 14:45 White Blood Count 8.3 x10^3/uL (4.0-11.0) Red Blood Count 4.30 x10^6/uL (3.50-5.40) Hemoglobin 12.0 g/dL (12.0-15.5) Hematocrit 36.6 % (36.0-47.0) Mean Corpuscular Volume 85 fL (79-100) Mean Corpuscular Hemoglobin 28 pg (25-35) Mean Corpuscular Hemoglobin Concent 33 g/dL (31-37) Red Cell Distribution Width 16.4 % (11.5-14.5) H Platelet Count 305 x10^3/uL (140-400) Neutrophils (%) (Auto) 79 % (31-73) H Lymphocytes (%) (Auto) 13 % (24-48) L Monocytes (%) (Auto) 6 % (0-9) Eosinophils (%) (Auto) 1 % (0-3) Basophils (%) (Auto) 1 % (0-3) Neutrophils # (Auto) 6.6 x10^3uL (1.8-7.7) Lymphocytes # (Auto) 1.1 x10^3/uL (1.0-4.8) Monocytes # (Auto) 0.5 x10^3/uL (0.0-1.1) Eosinophils # (Auto) 0.0 x10^3/uL (0.0-0.7) Basophils # (Auto) 0.1 x10^3/uL (0.0-0.2) Prothrombin Time 13.3 SEC (11.7-14.0) Prothrombin Time INR 1.1 (0.8-1.1) Sodium Level 139 mmol/L (136-145) Potassium Level 3.9 mmol/L (3.5-5.1) Chloride Level 99 mmol/L (98-107) Carbon Dioxide Level 34 mmol/L (21-32) H Anion Gap 6 (6-14) Blood Urea Nitrogen 12 mg/dL (7-20) Creatinine 0.8 mg/dL (0.6-1.0) Estimated GFR (Cockcroft-Gault) 87.7 BUN/Creatinine Ratio 15 (6-20) Glucose Level 141 mg/dL (70-99) H Calcium Level 10.3 mg/dL (8.5-10.1) H Total Bilirubin 0.4 mg/dL (0.2-1.0) Aspartate Amino Transferase (AST) 19 U/L (15-37) Alanine Aminotransferase (ALT) 27 U/L (14-59) Alkaline Phosphatase 95 U/L (46-116) Creatine Kinase 55 U/L (26-192) Creatine Kinase MB (Mass) 0.7 ng/mL (0.0-3.6) Creatine Kinase MB Relative Index % (0-4) Troponin I Quantitative < 0.017 ng/mL (0.000-0.055) CD-Wze-K-Type Natriuretic Peptide 1654 pg/mL (0-124) H Total Protein 8.5 g/dL (6.4-8.2) H Albumin 3.5 g/dL (3.4-5.0) Albumin/Globulin Ratio 0.7 (1.0-1.7) L Lipase 94 U/L (73-393) Laboratory Tests 01/12/18 14:45 Laboratory Tests 01/12/18 14:45 EKG EKG [Normal sinus rhythm at a rate of 88 bpm, probable left axis deviation, right bundle-branch block, there are no acute ischemic ST/T changes. The patient's EKG is not significantly Changed compared to her prior EKG.] Radiology/Procedures Radiology/Procedures [PROCEDURE: PORTABLE CHEST 1V Portable chest, 01/12/2018: HISTORY: Shortness of breath Comparison is made to a study from 12/06/2017. There has been a previous median sternotomy. A left-sided transvenous pacemaker remains in place with 2 leads extending into the right heart. The heart is moderately enlarged. The pulmonary vascularity is at the upper limits of normal. There is slight prominence of the minor fissure. No pulmonary consolidation is seen. There is no evidence of pleural fluid. IMPRESSION: 1. Cardiomegaly and aortic atherosclerosis. 2. Slight prominence of the minor fissure suggests minimal subpleural interstitial edema versus scarring.] Course & Med Decision Making Course & Med Decision Making Pertinent Labs and Imaging studies reviewed. (See chart for details) [4:45 PM: The patient's condition remains stable. I spoke with the hospitalist, who accepted the patient to the hospital for further evaluation and treatment.] Dragon Disclaimer Dragon Disclaimer This electronic medical record was generated, in whole or in part, using a voice recognition dictation system. Departure Departure Impression: Primary Impression: Chest pain Additional Impression: History of coronary artery disease Disposition: ADMITTED INPATIENT Admitting Physician: Other (Dr. Kamilla) Condition: STABLE Referrals: NO PCP (PCP) Problem Qualifiers MILLER ORTIZ MD Jan 12, 2018 14:40
[2018-01-12 15:01] LABS: BASO # 0.1 x10^3/uL (0.0-0.2); BASO % 1 % (0-3); EOS % 1 % (0-3); HEMATOCRIT 36.6 % (36.0-47.0); LYMPH # 1.1 x10^3/uL (1.0-4.8); LYMPH % 13 % (24-48); MEAN CORPUSCULAR HEMOGLOBIN 28 pg (25-35); MEAN CORPUSCULAR HGB CONC 33 g/dL (31-37); MEAN CORPUSCULAR VOLUME 85 fL (79-100); MONO # 0.5 x10^3/uL (0.0-1.1); MONO % 6 % (0-9); NEUT # 6.6 x10^3uL (1.8-7.7); NEUT % 79 % (31-73); PLATELET COUNT 305 x10^3/uL (140-400); RED CELL DISTRIBUTION WIDTH 16.4 % (11.5-14.5); WHITE BLOOD COUNT 8.3 x10^3/uL (4.0-11.0)
[2018-01-12 15:11] LABS: CALCIUM 10.3 mg/dL (8.5-10.1); CREATININE 0.8 mg/dL (0.6-1.0); GFR 87.7; POTASSIUM 3.9 mmol/L (3.5-5.1); PROTHROMBIN TIME PATIENT 13.3 SEC (11.7-14.0)
--- NOTE | 2018-01-12 15:16 | RAD ---
Portable chest, 01/12/2018: HISTORY: Shortness of breath Comparison is made to a study from 12/06/2017. There has been a previous median sternotomy. A left-sided transvenous pacemaker remains in place with 2 leads extending into the right heart. The heart is moderately enlarged. The pulmonary vascularity is at the upper limits of normal. There is slight prominence of the minor fissure. No pulmonary consolidation is seen. There is no evidence of pleural fluid. IMPRESSION: 1. Cardiomegaly and aortic atherosclerosis. 2. Slight prominence of the minor fissure suggests minimal subpleural interstitial edema versus scarring. Electronically signed by: Irvin Viveros MD (01/12/2018 3:12 PM) [facility]
[2018-01-12 15:17] LABS: ALBUMIN 3.5 g/dL (3.4-5.0); ALBUMIN/GLOBULIN RATIO 0.7 (1.0-1.7); TOTAL BILIRUBIN 0.4 mg/dL (0.2-1.0); TOTAL PROTEIN 8.5 g/dL (6.4-8.2)
[2018-01-12 15:26] LABS: CREATINE KINASE 55 U/L (26-192)
--- NOTE | 2018-01-12 16:19 | EKG ---
[facility] [address] [place] [address] Test Date: 2018-01-12 Test Time: 13:38:41 Pat Name: GRETCHEN BONILLA Department: Room: Gender: F [employer] Coordinator: : 1955 Requested By: MILLER ORTIZ Order Number: [id number] Reading MD: Salvador Maldonado MD Measurements Intervals [place] Rate: 88 P: -31 AR: 128 QRS: -124 QRSD: 150 T: 70 QT: 394 QTc: 480 Interpretive Statements SINUS RHYTHM v-paced Electronically Signed On 01-13-2018 9:41:37 CDT by Salvador Maldonado MD
[2018-01-12 19:00] VITALS: BP 138/42
[2018-01-12] MEDS ORDERED: ACETAMINOPHEN 325 MG TABLET. PO PRN (20:45)
[2018-01-12] MEDS ORDERED: ONDANSETRON ODT 4 MG TAB.RAPDIS. PO ONE (21:15)
[2018-01-12] MEDS: ZOLPIDEM 5 MG TABLET. PO PRN (21:32)
[2018-01-12] MEDS: oxyCODONE/APAP 10/325 1 TAB TABLET PO PRN (21:33)
[2018-01-12] MEDS ORDERED: ALBUTEROL SULFATE 5 MG NEB PRN (22:00)
[2018-01-12] MEDS ORDERED: DEXTROSE 50% 25 GM / 50ML DISP.SYRIN. IV PRN (22:00)
[2018-01-12] MEDS ORDERED: ONDANSETRON PF 4 MG/2 ML VIAL. IV PRN (22:00)
[2018-01-12] MEDS ORDERED: NITROGLYCERIN SUBLINGUAL 0.4 MG BOTTLE OF 25. SL PRN (22:00)
[2018-01-12] MEDS ORDERED: MORPHINE SULFATE 2 MG/ML VIAL. IV PRN (22:00)
--- NOTE | 2018-01-12 22:19 | PDOC1 ---
History and Physical Date of Admission Date of Admission DATE: 01/12/18 TIME: 22:03 Identification/Chief Complaint Chief Complaint Chest pain Source Source: Patient History of Present Illness History of Present Illness Ms Laguna is a 62yo female w/ PMHx HTN, DM, chronic pain, and CAD (s/p stenting, CABG 2014 and PPM) who for the past 3-4 days has had increasing dyspnea on exertion and chest pain on exertion. She notes friday night was when this began. She describes the pain as a heaviness or pressure rated at 6/10, constant. No radiation. She has had some nausea but no vomiting. She has not had a cough. She denies any pleuritic pain. There are no alleviating or exacerbating factors to her symptoms, except as noted above. She is requesting pain medication for her chest discomfort. She states that she took nitroglycerin this morning without improvement in her symptoms. Found with CXR consistent with cardiomegaly and concern for interstitial edema, BNP 1645. EKG appears to have right axis deviation that is new, so is admitted for further care and she would like her occupational health nurse manager, Dr. Arias consulted. She states she has not missed doses of her home meds, states she would like her 10mg ambien and 10-325mg oxycodone/apap continued while inpatient, no record of these meds outpatient. Past Medical History Cardiovascular: CAD, CHF, HTN, DC, Hyperlipidemia Pulmonary: COPD, Other CENTRAL NERVOUS SYSTEM: Periperal neuropathy GI: GERD Heme/Onc: No pertinent hx Hepatobiliary: No pertinent hx Psych: No pertinent hx Musculoskeletal: low back pain, Osteoarthritis Rheumatologic: No pertinent hx Renal/: Chronic renal insuff Endocrine: Diabetes Past Surgical History Past Surgical History: Pacemaker, Appendectomy, Cholecystectomy, CABG, Hernia Repair, Total knee replacement, Hysterectomy, Other Family History Family History: Diabetes Social History ALCOHOL: none Drugs: None Current Problem List Problem List Problems Medical Problems: (1) History of coronary artery disease Status: Acute Current Medications Current Medications Current Medications Aspirin (Children'S Aspirin) 324 mg 1X ONCE PO Last administered on at 15:05; Start 01/12/18 at 14:30; Stop 01/12/18 at 14:33; Status DC Morphine Sulfate (Morphine Sulfate) 4 mg 1X ONCE IV Last administered on 01/12at 15:36; Start 01/12/18 at 14:30; Stop 01/12/18 at 14:33; Status DC Nitroglycerin (Nitro-Bid Oint) 1 inch 1X ONCE TP Last administered on at 14:30; Start 01/12/18 at 14:30; Stop 01/12/18 at 14:33; Status DC Ondansetron HCl (Zofran) 4 mg 1X ONCE IV Last administered on 01/12/18at 14:48 ; Start 01/12/18 at 14:30; Stop 01/12/18 at 14:33; Status DC Labetalol HCl (Normodyne Iv Push) 20 mg 1X ONCE IVP Last administered on 01/12at 14:49; Start 01/12/18 at 14:30; Stop 01/12/18 at 14:33; Status DC Oxycodone/ Acetaminophen (Percocet 10/325) 1 tab PRN Q6HRS PRN PO SEVERE PAIN Last administered on 01/12/18at 21:33; Start 01/12/18 at 20:45 Zolpidem Tartrate (Ambien) 5 mg PRN QHS PRN PO INSOMNIA Last administered on at 21:32; Start 01/12/18 at 20:45 Acetaminophen (Tylenol) 650 mg PRN Q6HRS PRN PO MILD PAIN; Start 01/12/18 at 20:45 Ondansetron HCl (Zofran Odt) 4 mg 1X ONCE PO ; Start 01/12/18 at 21:15; Stop 01/12/18 at 21:16; Status DC Active Scripts Active Novolog Flexpen (Insulin Aspart) 100 Unit/1 Ml Insuln.pen 10 Unit SQ TID 30 Days Levemir (Insulin Detemir) 100 Unit/1 Ml Vial 15 Unit SQ TID 30 Days [Pantoprazole] 40 MG Tablet.dr 40 Mg PO DAILYAC 30 Days Amaryl (Glimepiride) 2 Mg Tablet 2 Mg PO DAILY 30 Days Reported Furosemide 80 Mg Tablet 80 Mg PO DAILY Albuterol Sulfate Conc Neb Soln (Albuterol Sulfate) 2.5 Mg/0.5 Ml Vial.neb 5 Mg NEB PRN PRN Losartan Potassium 50 Mg Tablet 50 Mg PO DAILY Metoprolol Tartrate 25 Mg Tablet 1 Tab PO BID Ferrous Sulfate 325 Mg Tablet 1 Tab PO DAILY NITROGLYCERIN SubLingual (Nitroglycerin) 0.4 Mg Tab.subl 0.4 Mg SL PRN Q5MIN PRN Atorvastatin Calcium 20 Mg Tablet 20 Mg PO HS Potassium Chloride 10 Meq Capsule.er 10 Meq PO BID Aspir 81 (Aspirin) 81 Mg Tablet.dr 1 Tab PO DAILY Clopidogrel (Clopidogrel Bisulfate) 75 Mg Tablet 1 Tab PO DAILY Allergies Allergies: Coded Allergies: ibuprofen (Verified Adverse Reaction, Intermediate, Nausea and Vomiting, ) ROS General: YES: Fatigue; No: Chills, Night Sweats, Malaise, Appetite, Other PSYCHOLOGICAL ROS: No: Anxiety, Behavioral Disorder, Concentration difficultie , Decreased libido, Depression, Disorientation, Hallucinations, Hostility, Irritablity, Memory difficulties, Mood Swings, Obsessive thoughts, Physical abuse, Sexual abuse, Sleep disturbances, Suicidal ideation, Other Eyes: No Blurry vision, No Decreased vision, No Double vision, No Dry eyes, No Excessive tearing, No Eye Pain, No Itchy Eyes, No Loss of vision, No Photophobia , No Scotomata, No Uses contacts, No Uses glasses, No Other HEENT: No: Heacaches, Visual Changes, Hearing change, Nasal congestion, Nasal discharge, Oral lesions, Sinus pain, Sore Throat, Epistaxis, Sneezing, Snoring, Tinnitus, Vertigo, Vocal changes, Other ENDOCRINE: No: Breast Changes, Galactorrhea, Hair Pattern Changes, Hot Flashes , Malaise/lethargy, Mood Swings, Palpitations, Polydipsia/polyuria, Skin Changes , Temperature Intolerance, Unexpected Weight Changes, Other Breast: No New/Changing Breast Lumps, No Nipple changes, No Nipple discharge, No Other Respiratory: YES: Shortness of breath, SOB with excertion; No: Cough, Hemoptysis, Orthopnea, Pleuritic Pain, Sputum Changes, Stridor, Tachypnea, Wheezing, Other Cardiovascular: yes Chest Pain, yes Orthopnea, yes Paroxysmal Noc. Dyspnea, yes Edema; No Palpitations, No Lt Headedness, No Other Gastrointestinal: Yes Nausea; No Vomiting, No Abdominal Pain, No Diarrhea, No Constipation, No Melena, No Hematochezia, No Other Genitourinary: No Dysuria, No Frequency, No Incontinence, No Hematuria, No Retention, No Discharge, No Urgency, No Pain, No Flank Pain, No Other, No , No , No , No , No , No , No Musculoskeletal: No Gait Disturbance, No Joint Pain, No Joint Stiffness, No Joint Swelling, No Muscle Pain, No Muscular Weakness, No Pain In:, No Swelling In:, No Other Neurological: No Behavorial Changes, No Bowel/Bladder ControlChng, No Confusion , No Dizziness, No Gait Disturbance, No Headaches, No Impaired Coord/balance, No Memory Loss, No Numbness/Tingling, No Seizures, No Speech Problems, No Tremors, No Visual Changes, No Weakness, No Other Skin: No Dry Skin, No Eczema, No Hair Changes, No Lumps, No Mole Changes, No Mottling, No Nail Changes, No Pruritus, No Rash, No Skin Lesion Changes, No Other, No Acne Physical Exam General: Alert, Oriented X3, Cooperative, No acute distress HEENT: Atraumatic, PERRLA, EOMI, Mucous membr. moist/pink Lungs: Clear to auscultation, Normal air movement, Other (Decreased basilar breath sounds) Heart: S1S2, RRR, no murmurs Abdomen: Normal bowel sounds, Soft, No tenderness, No hepatosplenomegaly, No masses Extremities: No clubbing, No cyanosis, No edema, Normal pulses, No tenderness/ swelling Skin: No rashes, No breakdown, No significant lesion Neuro: Normal gait, Normal speech, Strength at 5/5 X4 ext, Normal tone, Sensation intact, Cranial nerves 3-12 NL, Reflexes 2+ Psych/Mental Status: Mental status NL, Mood NL Vitals Vitals Vital Signs Date Time Temp Pulse Resp B/P (MAP) Pulse Ox O2 Delivery O2 Flow Rate FiO2 01/12/18 21:33 Nasal Cannula 2.0 01/12/18 19:00 97.9 75 20 138/42 (74) 99 97.9 Labs Labs Laboratory Tests Test 01/12/18 14:45 01/12/18 19:35 01/12/18 20:27 White Blood Count 8.3 x10^3/uL (4.0-11.0) Red Blood Count 4.30 x10^6/uL (3.50-5.40) Hemoglobin 12.0 g/dL (12.0-15.5) Hematocrit 36.6 % (36.0-47.0) Mean Corpuscular Volume 85 fL (79-100) Mean Corpuscular Hemoglobin 28 pg (25-35) Mean Corpuscular Hemoglobin Concent 33 g/dL (31-37) Red Cell Distribution Width 16.4 % (11.5-14.5) Platelet Count 305 x10^3/uL (140-400) Neutrophils (%) (Auto) 79 % (31-73) Lymphocytes (%) (Auto) 13 % (24-48) Monocytes (%) (Auto) 6 % (0-9) Eosinophils (%) (Auto) 1 % (0-3) Basophils (%) (Auto) 1 % (0-3) Neutrophils # (Auto) 6.6 x10^3uL (1.8-7.7) Lymphocytes # (Auto) 1.1 x10^3/uL (1.0-4.8) Monocytes # (Auto) 0.5 x10^3/uL (0.0-1.1) Eosinophils # (Auto) 0.0 x10^3/uL (0.0-0.7) Basophils # (Auto) 0.1 x10^3/uL (0.0-0.2) Prothrombin Time 13.3 SEC (11.7-14.0) Prothromb Time International Ratio 1.1 (0.8-1.1) Sodium Level 139 mmol/L (136-145) Potassium Level 3.9 mmol/L (3.5-5.1) Chloride Level 99 mmol/L (98-107) Carbon Dioxide Level 34 mmol/L (21-32) Anion Gap 6 (6-14) Blood Urea Nitrogen 12 mg/dL (7-20) Creatinine 0.8 mg/dL (0.6-1.0) Estimated GFR (Cockcroft-Gault) 87.7 BUN/Creatinine Ratio 15 (6-20) Glucose Level 141 mg/dL (70-99) Calcium Level 10.3 mg/dL (8.5-10.1) Total Bilirubin 0.4 mg/dL (0.2-1.0) Aspartate Amino Transf (AST/SGOT) 19 U/L (15-37) Alanine Aminotransferase (ALT/SGPT) 27 U/L (14-59) Alkaline Phosphatase 95 U/L (46-116) Creatine Kinase 55 U/L (26-192) Creatine Kinase MB (Mass) 0.7 ng/mL (0.0-3.6) Creatine Kinase MB Relative Index % (0-4) Troponin I Quantitative < 0.017 ng/mL (0.000-0.055) < 0.017 ng/mL (0.000-0.055) LG-Jtc-F-Type Natriuretic Peptide 1654 pg/mL (0-124) Total Protein 8.5 g/dL (6.4-8.2) Albumin 3.5 g/dL (3.4-5.0) Albumin/Globulin Ratio 0.7 (1.0-1.7) Lipase 94 U/L (73-393) Glucose (Fingerstick) 154 mg/dL (70-99) Laboratory Tests Test 01/12/18 14:45 01/12/18 19:35 01/12/18 20:27 White Blood Count 8.3 x10^3/uL (4.0-11.0) Red Blood Count 4.30 x10^6/uL (3.50-5.40) Hemoglobin 12.0 g/dL (12.0-15.5) Hematocrit 36.6 % (36.0-47.0) Mean Corpuscular Volume 85 fL (79-100) Mean Corpuscular Hemoglobin 28 pg (25-35) Mean Corpuscular Hemoglobin Concent 33 g/dL (31-37) Red Cell Distribution Width 16.4 % (11.5-14.5) Platelet Count 305 x10^3/uL (140-400) Neutrophils (%) (Auto) 79 % (31-73) Lymphocytes (%) (Auto) 13 % (24-48) Monocytes (%) (Auto) 6 % (0-9) Eosinophils (%) (Auto) 1 % (0-3) Basophils (%) (Auto) 1 % (0-3) Neutrophils # (Auto) 6.6 x10^3uL (1.8-7.7) Lymphocytes # (Auto) 1.1 x10^3/uL (1.0-4.8) Monocytes # (Auto) 0.5 x10^3/uL (0.0-1.1) Eosinophils # (Auto) 0.0 x10^3/uL (0.0-0.7) Basophils # (Auto) 0.1 x10^3/uL (0.0-0.2) Prothrombin Time 13.3 SEC (11.7-14.0) Prothromb Time International Ratio 1.1 (0.8-1.1) Sodium Level 139 mmol/L (136-145) Potassium Level 3.9 mmol/L (3.5-5.1) Chloride Level 99 mmol/L (98-107) Carbon Dioxide Level 34 mmol/L (21-32) Anion Gap 6 (6-14) Blood Urea Nitrogen 12 mg/dL (7-20) Creatinine 0.8 mg/dL (0.6-1.0) Estimated GFR (Cockcroft-Gault) 87.7 BUN/Creatinine Ratio 15 (6-20) Glucose Level 141 mg/dL (70-99) Calcium Level 10.3 mg/dL (8.5-10.1) Total Bilirubin 0.4 mg/dL (0.2-1.0) Aspartate Amino Transf (AST/SGOT) 19 U/L (15-37) Alanine Aminotransferase (ALT/SGPT) 27 U/L (14-59) Alkaline Phosphatase 95 U/L (46-116) Creatine Kinase 55 U/L (26-192) Creatine Kinase MB (Mass) 0.7 ng/mL (0.0-3.6) Creatine Kinase MB Relative Index % (0-4) Troponin I Quantitative < 0.017 ng/mL (0.000-0.055) < 0.017 ng/mL (0.000-0.055) YD-Wlo-S-Type Natriuretic Peptide 1654 pg/mL (0-124) Total Protein 8.5 g/dL (6.4-8.2) Albumin 3.5 g/dL (3.4-5.0) Albumin/Globulin Ratio 0.7 (1.0-1.7) Lipase 94 U/L (73-393) Glucose (Fingerstick) 154 mg/dL (70-99) Images Images CXR - cardiomegaly, interstitial edema EKG - Right superior axis now present, Right ventricular hypertrophy now present, Early repolarization now present, Myocardial infarct finding now present, Ventricular-paced complex(es) or rhythm no longer present VTE Prophylaxis Ordered VTE Prophylaxis Devices: No VTE Pharmacological Prophylaxi: Yes Assessment/Plan Assessment/Plan A/P: Chest pain - she does have a strong cardiac history, concerning for new EKG findings, will trend troponins overnight, this could be ACS. ASA, morphine. Consult cardiology Shortness of breath - with her elevated BNP, interstitial edema and cardiomegaly on CXR I am concerned for CHF. Will order lasix IV HTN - not well controlled, restart home medications, may need prn vasotec or hydralazine DM - cont her home levemir and mealtime scheduled plus sliding scale FEN - Cardiac carb consistent diet PPX - heparin FULL CODE Inpatient for what looks to be early CHF/pulmonary edema with possible ACS. Initially admitted as observation, but she does need some diuresis VENKAT ALEJANDRO MD Jan 12, 2018 22:19
[2018-01-12] MEDS: SENNOSIDES/DOCUSATE 8.6/50MG TABLET. PO SCH (22:29)
[2018-01-12] MEDS: METOPROLOL TART IMMED RELEASE 25 MG TABLET. PO SCH (22:29)
[2018-01-12] MEDS: ATORVASTATIN CALCIUM 20 MG TABLET PO SCH (22:29)
[2018-01-12] MEDS: POTASSIUM CHLORIDE 10 MEQ TABLET.ER. PO SCH (22:29)
[2018-01-12] MEDS ORDERED: ALBUTEROL SULFATE 2.5 MG/3 ML NEBU. NEB PRN (22:30)
[2018-01-12] MEDS: INSULIN GLARGINE 300 UNITS/3 ML INSULN.PEN. SQ SCH (22:33)
[2018-01-12] MEDS: HEPARIN for SUB-Q USE 5,000 UNIT/ML VIAL. SQ SCH (22:34)
[2018-01-12 23:00] VITALS: BP 149/43
[2018-01-13 03:12] VITALS: BP 156/46
[2018-01-13] MEDS: oxyCODONE/APAP 10/325 1 TAB TABLET PO PRN ×3 (03:51→18:25)
[2018-01-13 05:06] LABS: CALCIUM 9.5 mg/dL (8.5-10.1); CREATININE 0.8 mg/dL (0.6-1.0); GFR 87.7; POTASSIUM 3.7 mmol/L (3.5-5.1)
[2018-01-13] MEDS: HEPARIN for SUB-Q USE 5,000 UNIT/ML VIAL. SQ SCH ×3 (05:16→22:03)
[2018-01-13 07:00] VITALS: BP 146/50
[2018-01-13] MEDS ORDERED: INSULIN LISPRO 300 UNITS/3 ML INSULN.PEN. SQ SCH (08:00)
[2018-01-13] MEDS ORDERED: ENALAPRILAT 1.25 MG/ML VIAL. IVP PRN (08:15)
[2018-01-13] MEDS: POTASSIUM CHLORIDE 10 MEQ TABLET.ER. PO SCH ×2 (08:31→21:56)
[2018-01-13] MEDS: PANTOPRAZOLE 40 MG TABLET.DR. PO SCH (08:31)
[2018-01-13] MEDS: SENNOSIDES/DOCUSATE 8.6/50MG TABLET. PO SCH ×2 (08:32→21:00)
[2018-01-13] MEDS: METOPROLOL TART IMMED RELEASE 25 MG TABLET. PO SCH ×2 (08:32→21:56)
[2018-01-13] MEDS: INSULIN LISPRO 300 UNITS/3 ML INSULN.PEN. SQ SCH ×3 (08:39→17:50)
[2018-01-13] MEDS: GLIMEPIRIDE 2 MG TABLET. PO SCH (08:49)
[2018-01-13] MEDS: CLOPIDOGREL BISULFATE 75 MG TABLET PO SCH (08:49)
[2018-01-13] MEDS: FERROUS SULFATE 325 MG TABLET. PO SCH (08:49)
[2018-01-13] MEDS: LOSARTAN POTASSIUM 50 MG TABLET. PO SCH (08:50)
[2018-01-13] MEDS: ASPIRIN ENTERIC COATED 81 MG TABLET.DR. PO SCH (08:50)
[2018-01-13] MEDS ORDERED: FUROSEMIDE 80 MG TABLET. PO SCH (09:00)
--- NOTE | 2018-01-13 09:35 | PDOC ---
PROGRESS NOTES Chief Complaint Chief Complaint CP - EKG an dtrops reassuring acute on chronic combined CHF, morbid obesity, BMI 44 ANEMIA weakness and debility Dm2, insulin dependent HX severe hypercapnic resp failure needing BIPAP NArc dependence History of Present Illness History of Present Illness SHe describes the chest pain as tightness, midsternal, no diaphoresis but could not catch her breath On O2 when necessary at home, still has no BiPAP or CPAP at night at home Labs an EKG reassuring Plan: Blood pressure high, Vasotec when necessary Home meds I have reconciled including 2 tablets of Percocet 10-history of chronic back pain Await cardiology Rounds Vitals Vitals Vital Signs Date Time Temp Pulse Resp B/P (MAP) Pulse Ox O2 Delivery O2 Flow Rate FiO2 01/13/18 08:50 59 146/50 01/13/18 08:32 98 Nasal Cannula 2.0 01/13/18 07:00 98.4 17 98.4 Physical Exam General: Alert, Oriented X3, Cooperative, No acute distress Heart: Regular rate, Normal S1, Normal S2 Lungs: Clear Abdomen: Normal bowel sounds, Soft, No tenderness, No hepatosplenomegaly, No masses Extremities: No clubbing, No cyanosis, No edema, Normal pulses, No tenderness/ swelling Skin: No rashes, No breakdown, No significant lesion Labs LABS Laboratory Tests Test 01/12/18 14:45 01/12/18 19:35 01/12/18 20:27 01/12/18 22:40 White Blood Count 8.3 x10^3/uL (4.0-11.0) Red Blood Count 4.30 x10^6/uL (3.50-5.40) Hemoglobin 12.0 g/dL (12.0-15.5) Hematocrit 36.6 % (36.0-47.0) Mean Corpuscular Volume 85 fL (79-100) Mean Corpuscular Hemoglobin 28 pg (25-35) Mean Corpuscular Hemoglobin Concent 33 g/dL (31-37) Red Cell Distribution Width 16.4 % (11.5-14.5) Platelet Count 305 x10^3/uL (140-400) Neutrophils (%) (Auto) 79 % (31-73) Lymphocytes (%) (Auto) 13 % (24-48) Monocytes (%) (Auto) 6 % (0-9) Eosinophils (%) (Auto) 1 % (0-3) Basophils (%) (Auto) 1 % (0-3) Neutrophils # (Auto) 6.6 x10^3uL (1.8-7.7) Lymphocytes # (Auto) 1.1 x10^3/uL (1.0-4.8) Monocytes # (Auto) 0.5 x10^3/uL (0.0-1.1) Eosinophils # (Auto) 0.0 x10^3/uL (0.0-0.7) Basophils # (Auto) 0.1 x10^3/uL (0.0-0.2) Prothrombin Time 13.3 SEC (11.7-14.0) Prothromb Time International Ratio 1.1 (0.8-1.1) Sodium Level 139 mmol/L (136-145) Potassium Level 3.9 mmol/L (3.5-5.1) Chloride Level 99 mmol/L (98-107) Carbon Dioxide Level 34 mmol/L (21-32) Anion Gap 6 (6-14) Blood Urea Nitrogen 12 mg/dL (7-20) Creatinine 0.8 mg/dL (0.6-1.0) Estimated GFR (Cockcroft-Gault) 87.7 BUN/Creatinine Ratio 15 (6-20) Glucose Level 141 mg/dL (70-99) Calcium Level 10.3 mg/dL (8.5-10.1) Total Bilirubin 0.4 mg/dL (0.2-1.0) Aspartate Amino Transf (AST/SGOT) 19 U/L (15-37) Alanine Aminotransferase (ALT/SGPT) 27 U/L (14-59) Alkaline Phosphatase 95 U/L (46-116) Creatine Kinase 55 U/L (26-192) Creatine Kinase MB (Mass) 0.7 ng/mL (0.0-3.6) Creatine Kinase MB Relative Index % (0-4) Troponin I Quantitative < 0.017 ng/mL (0.000-0.055) < 0.017 ng/mL (0.000-0.055) < 0.017 ng/mL (0.000-0.055) BM-Xuy-S-Type Natriuretic Peptide 1654 pg/mL (0-124) Total Protein 8.5 g/dL (6.4-8.2) Albumin 3.5 g/dL (3.4-5.0) Albumin/Globulin Ratio 0.7 (1.0-1.7) Lipase 94 U/L (73-393) Glucose (Fingerstick) 154 mg/dL (70-99) Test 01/13/18 03:45 01/13/18 07:29 Sodium Level 141 mmol/L (136-145) Potassium Level 3.7 mmol/L (3.5-5.1) Chloride Level 101 mmol/L (98-107) Carbon Dioxide Level 36 mmol/L (21-32) Anion Gap 4 (6-14) Blood Urea Nitrogen 14 mg/dL (7-20) Creatinine 0.8 mg/dL (0.6-1.0) Estimated GFR (Cockcroft-Gault) 87.7 Glucose Level 152 mg/dL (70-99) Calcium Level 9.5 mg/dL (8.5-10.1) Glucose (Fingerstick) 117 mg/dL (70-99) Review of Systems Review of Systems Chest pain, back pain, the rest of ROS 14 point negative Assessment and Plan Assessmemt and Plan Problems Medical Problems: (1) History of coronary artery disease Status: Acute Comment Review of Relevant I have reviewed the following items nolan (where applicable) has been applied. Labs Laboratory Tests Test 01/12/18 14:45 01/12/18 19:35 01/12/18 20:27 01/12/18 22:40 White Blood Count 8.3 x10^3/uL (4.0-11.0) Red Blood Count 4.30 x10^6/uL (3.50-5.40) Hemoglobin 12.0 g/dL (12.0-15.5) Hematocrit 36.6 % (36.0-47.0) Mean Corpuscular Volume 85 fL (79-100) Mean Corpuscular Hemoglobin 28 pg (25-35) Mean Corpuscular Hemoglobin Concent 33 g/dL (31-37) Red Cell Distribution Width 16.4 % (11.5-14.5) Platelet Count 305 x10^3/uL (140-400) Neutrophils (%) (Auto) 79 % (31-73) Lymphocytes (%) (Auto) 13 % (24-48) Monocytes (%) (Auto) 6 % (0-9) Eosinophils (%) (Auto) 1 % (0-3) Basophils (%) (Auto) 1 % (0-3) Neutrophils # (Auto) 6.6 x10^3uL (1.8-7.7) Lymphocytes # (Auto) 1.1 x10^3/uL (1.0-4.8) Monocytes # (Auto) 0.5 x10^3/uL (0.0-1.1) Eosinophils # (Auto) 0.0 x10^3/uL (0.0-0.7) Basophils # (Auto) 0.1 x10^3/uL (0.0-0.2) Prothrombin Time 13.3 SEC (11.7-14.0) Prothromb Time International Ratio 1.1 (0.8-1.1) Sodium Level 139 mmol/L (136-145) Potassium Level 3.9 mmol/L (3.5-5.1) Chloride Level 99 mmol/L (98-107) Carbon Dioxide Level 34 mmol/L (21-32) Anion Gap 6 (6-14) Blood Urea Nitrogen 12 mg/dL (7-20) Creatinine 0.8 mg/dL (0.6-1.0) Estimated GFR (Cockcroft-Gault) 87.7 BUN/Creatinine Ratio 15 (6-20) Glucose Level 141 mg/dL (70-99) Calcium Level 10.3 mg/dL (8.5-10.1) Total Bilirubin 0.4 mg/dL (0.2-1.0) Aspartate Amino Transf (AST/SGOT) 19 U/L (15-37) Alanine Aminotransferase (ALT/SGPT) 27 U/L (14-59) Alkaline Phosphatase 95 U/L (46-116) Creatine Kinase 55 U/L (26-192) Creatine Kinase MB (Mass) 0.7 ng/mL (0.0-3.6) Creatine Kinase MB Relative Index % (0-4) Troponin I Quantitative < 0.017 ng/mL (0.000-0.055) < 0.017 ng/mL (0.000-0.055) < 0.017 ng/mL (0.000-0.055) RL-Xkn-T-Type Natriuretic Peptide 1654 pg/mL (0-124) Total Protein 8.5 g/dL (6.4-8.2) Albumin 3.5 g/dL (3.4-5.0) Albumin/Globulin Ratio 0.7 (1.0-1.7) Lipase 94 U/L (73-393) Glucose (Fingerstick) 154 mg/dL (70-99) Test 01/13/18 03:45 01/13/18 07:29 Sodium Level 141 mmol/L (136-145) Potassium Level 3.7 mmol/L (3.5-5.1) Chloride Level 101 mmol/L (98-107) Carbon Dioxide Level 36 mmol/L (21-32) Anion Gap 4 (6-14) Blood Urea Nitrogen 14 mg/dL (7-20) Creatinine 0.8 mg/dL (0.6-1.0) Estimated GFR (Cockcroft-Gault) 87.7 Glucose Level 152 mg/dL (70-99) Calcium Level 9.5 mg/dL (8.5-10.1) Glucose (Fingerstick) 117 mg/dL (70-99) Laboratory Tests Test 01/12/18 14:45 01/12/18 19:35 01/12/18 20:27 01/12/18 22:40 White Blood Count 8.3 x10^3/uL (4.0-11.0) Red Blood Count 4.30 x10^6/uL (3.50-5.40) Hemoglobin 12.0 g/dL (12.0-15.5) Hematocrit 36.6 % (36.0-47.0) Mean Corpuscular Volume 85 fL (79-100) Mean Corpuscular Hemoglobin 28 pg (25-35) Mean Corpuscular Hemoglobin Concent 33 g/dL (31-37) Red Cell Distribution Width 16.4 % (11.5-14.5) Platelet Count 305 x10^3/uL (140-400) Neutrophils (%) (Auto) 79 % (31-73) Lymphocytes (%) (Auto) 13 % (24-48) Monocytes (%) (Auto) 6 % (0-9) Eosinophils (%) (Auto) 1 % (0-3) Basophils (%) (Auto) 1 % (0-3) Neutrophils # (Auto) 6.6 x10^3uL (1.8-7.7) Lymphocytes # (Auto) 1.1 x10^3/uL (1.0-4.8) Monocytes # (Auto) 0.5 x10^3/uL (0.0-1.1) Eosinophils # (Auto) 0.0 x10^3/uL (0.0-0.7) Basophils # (Auto) 0.1 x10^3/uL (0.0-0.2) Prothrombin Time 13.3 SEC (11.7-14.0) Prothromb Time International Ratio 1.1 (0.8-1.1) Sodium Level 139 mmol/L (136-145) Potassium Level 3.9 mmol/L (3.5-5.1) Chloride Level 99 mmol/L (98-107) Carbon Dioxide Level 34 mmol/L (21-32) Anion Gap 6 (6-14) Blood Urea Nitrogen 12 mg/dL (7-20) Creatinine 0.8 mg/dL (0.6-1.0) Estimated GFR (Cockcroft-Gault) 87.7 BUN/Creatinine Ratio 15 (6-20) Glucose Level 141 mg/dL (70-99) Calcium Level 10.3 mg/dL (8.5-10.1) Total Bilirubin 0.4 mg/dL (0.2-1.0) Aspartate Amino Transf (AST/SGOT) 19 U/L (15-37) Alanine Aminotransferase (ALT/SGPT) 27 U/L (14-59) Alkaline Phosphatase 95 U/L (46-116) Creatine Kinase 55 U/L (26-192) Creatine Kinase MB (Mass) 0.7 ng/mL (0.0-3.6) Creatine Kinase MB Relative Index % (0-4) Troponin I Quantitative < 0.017 ng/mL (0.000-0.055) < 0.017 ng/mL (0.000-0.055) < 0.017 ng/mL (0.000-0.055) CT-Kaj-I-Type Natriuretic Peptide 1654 pg/mL (0-124) Total Protein 8.5 g/dL (6.4-8.2) Albumin 3.5 g/dL (3.4-5.0) Albumin/Globulin Ratio 0.7 (1.0-1.7) Lipase 94 U/L (73-393) Glucose (Fingerstick) 154 mg/dL (70-99) Test 01/13/18 03:45 01/13/18 07:29 Sodium Level 141 mmol/L (136-145) Potassium Level 3.7 mmol/L (3.5-5.1) Chloride Level 101 mmol/L (98-107) Carbon Dioxide Level 36 mmol/L (21-32) Anion Gap 4 (6-14) Blood Urea Nitrogen 14 mg/dL (7-20) Creatinine 0.8 mg/dL (0.6-1.0) Estimated GFR (Cockcroft-Gault) 87.7 Glucose Level 152 mg/dL (70-99) Calcium Level 9.5 mg/dL (8.5-10.1) Glucose (Fingerstick) 117 mg/dL (70-99) Medications Current Medications Aspirin (Children'S Aspirin) 324 mg 1X ONCE PO Last administered on at 15:05; Start 01/12/18 at 14:30; Stop 01/12/18 at 14:33; Status DC Morphine Sulfate (Morphine Sulfate) 4 mg 1X ONCE IV Last administered on 01/12at 15:36; Start 01/12/18 at 14:30; Stop 01/12/18 at 14:33; Status DC Nitroglycerin (Nitro-Bid Oint) 1 inch 1X ONCE TP Last administered on at 14:30; Start 01/12/18 at 14:30; Stop 01/12/18 at 14:33; Status DC Ondansetron HCl (Zofran) 4 mg 1X ONCE IV Last administered on 01/12/18at 14:48 ; Start 01/12/18 at 14:30; Stop 01/12/18 at 14:33; Status DC Labetalol HCl (Normodyne Iv Push) 20 mg 1X ONCE IVP Last administered on 01/12at 14:49; Start 01/12/18 at 14:30; Stop 01/12/18 at 14:33; Status DC Oxycodone/ Acetaminophen (Percocet 10) 1 tab PRN Q6HRS PRN PO SEVERE PAIN Last administered on 01/13/18at 03:51; Start 01/12/18 at 20:45 Zolpidem Tartrate (Ambien) 5 mg PRN QHS PRN PO INSOMNIA Last administered on at 21:32; Start 01/12/18 at 20:45 Acetaminophen (Tylenol) 650 mg PRN Q6HRS PRN PO MILD PAIN; Start 01/12/18 at 20:45 Ondansetron HCl (Zofran Odt) 4 mg 1X ONCE PO ; Start 01/12/18 at 21:15; Stop 01/12/18 at 21:16; Status DC Ondansetron HCl (Zofran) 4 mg PRN Q6HRS PRN IV NAUSEA/VOMITING; Start at 22:00 Morphine Sulfate (Morphine Sulfate) 2 mg PRN Q4HRS PRN IV PAIN; Start at 22:00 Senna/Docusate Sodium (Senna Plus) 1 tab BID PO Last administered on at 08:32; Start 01/12/18 at 23:00 Heparin Sodium (Porcine) (Heparin Sodium) 5,000 unit Q8HRS SQ Last administered on 01/13/18at 05:16; Start 01/12/18 at 22:00 Aspirin (Ecotrin) 81 mg DAILY PO Last administered on 01/13/18at 08:50; Start 01/13/18 at 09:00 Atorvastatin Calcium (Lipitor) 20 mg HS PO Last administered on 01/12/18at 22: 29; Start 01/12/18 at 23:00 Clopidogrel Bisulfate (Plavix) 75 mg DAILY PO Last administered on 01/13/18at 08:49; Start 01/13/18 at 09:00 Ferrous Sulfate (Feosol) 325 mg DAILY PO Last administered on 01/13/18at 08:49 ; Start 01/13/18 at 09:00 Furosemide (Lasix) 80 mg DAILY PO ; Start 01/13/18 at 09:00; Stop 01/13/18 at 09:00; Status DC Glimepiride (Amaryl) 2 mg DAILY PO Last administered on 01/13/18at 08:49; Start 01/13/18 at 09:00 Losartan Potassium (Cozaar) 50 mg DAILY PO Last administered on 01/13/18at 08: 50; Start 01/13/18 at 09:00 Metoprolol Tartrate (Lopressor) 25 mg BID PO Last administered on 01/13/18at 08 :32; Start 01/12/18 at 23:00 Nitroglycerin (Nitrostat) 0.4 mg PRN Q5MIN PRN SL CHEST PAIN; Start 01/12/18 at 22:00 Potassium Chloride (Klor-Con) 10 meq BID PO Last administered on 01/13/18at 08: 31; Start 01/12/18 at 23:00 Non-Formulary Medication (Albuterol Sulfate (Albuterol Sulfate Conc Neb Soln)) 5 mg PRN PRN NEB WHEEZING; Start 01/12/18 at 22:00; Stop 01/12/18 at 22:17; Status DC Insulin Human Lispro (HumaLOG) 10 units TIDWMEALS SQ Last administered on 01/13at 08:39; Start 01/13/18 at 08:00 Insulin Glargine (Lantus) 15 units QHS SQ Last administered on 01/12/18at 22:33 ; Start 01/12/18 at 23:00 Pantoprazole Sodium (Protonix) 40 mg DAILYAC PO Last administered on at 08:31; Start 01/13/18 at 07:30 Insulin Human Lispro (HumaLOG) 0-5 UNITS TIDWMEALS SQ ; Start 01/13/18 at 08:00 ; Stop 01/13/18 at 08:11; Status DC Dextrose (Dextrose 50%-Water Syringe) 12.5 gm PRN Q15MIN PRN IV SEE COMMENTS; Start 01/12/18 at 22:00 Albuterol Sulfate (Ventolin Neb Soln) 2.5 mg PRN Q6HRS PRN NEB SHORTNESS OF BREATH; Start 01/12/18 at 22:30 Furosemide (Lasix) 20 mg [id number] IVP ; Start 01/13/18 at 09:00 Enalaprilat (Vasotec Inj) 1.25 mg PRN Q6HRS PRN IVP HYPERTENSION, SEE COMMENTS ; Start 01/13/18 at 08:15 Active Scripts Active Novolog Flexpen (Insulin Aspart) 100 Unit/1 Ml Insuln.pen 10 Unit SQ TID 30 Days Levemir (Insulin Detemir) 100 Unit/1 Ml Vial 15 Unit SQ TID 30 Days [Pantoprazole] 40 MG Tablet. 40 Mg PO DAILYAC 30 Days Amaryl (Glimepiride) 2 Mg Tablet 2 Mg PO DAILY 30 Days Reported Furosemide 80 Mg Tablet 80 Mg PO DAILY Albuterol Sulfate Conc Neb Soln (Albuterol Sulfate) 2.5 Mg/0.5 Ml Vial.neb 5 Mg NEB PRN PRN Losartan Potassium 50 Mg Tablet 50 Mg PO DAILY Metoprolol Tartrate 25 Mg Tablet 1 Tab PO BID Ferrous Sulfate 325 Mg Tablet 1 Tab PO DAILY NITROGLYCERIN SubLingual (Nitroglycerin) 0.4 Mg Tab.subl 0.4 Mg SL PRN Q5MIN PRN Atorvastatin Calcium 20 Mg Tablet 20 Mg PO HS Potassium Chloride 10 Meq Capsule.er 10 Meq PO BID Aspir 81 (Aspirin) 81 Mg Tablet. 1 Tab PO DAILY Clopidogrel (Clopidogrel Bisulfate) 75 Mg Tablet 1 Tab PO DAILY Vitals/I & O Vital Sign - Last 24 Hours 01/12/18 01/12/18 01/12/18 01/12/18 13:56 14:11 14:30 14:41 Temp 98.3 98.3 Pulse 95 74 78 76 Resp 26 24 13 B/P (MAP) 200/81 (120) 217/84 (128) 211/127 204/87 (126) Pulse Ox 96 98 96 O2 Delivery Room Air Room Air Room Air 01/12/18 01/12/18 01/12/18 01/12/18 14:49 14:55 15:05 15:12 Pulse 77 76 72 Resp 18 17 B/P (MAP) 204/87 228/91 (136) 211/93 (132) 192/84 (120) Pulse Ox 94 95 O2 Delivery Room Air Room Air Room Air 01/12/18 01/12/18 01/12/18 01/12/18 15:14 15:15 15:25 15:35 Pulse 69 60 66 74 Resp 24 13 13 22 B/P (MAP) 211/127 (155) 169/76 (107) 173/78 (109) 202/93 (129) Pulse Ox 94 93 92 O2 Delivery Room Air Room Air Room Air 01/12/18 01/12/18 01/12/18 01/12/18 15:36 15:39 15:45 15:55 Pulse 74 72 74 Resp 20 18 16 18 B/P (MAP) 198/92 (127) 174/77 (109) 175/81 (112) Pulse Ox 95 O2 Delivery Room Air Room Air Room Air Room Air 01/12/18 01/12/18 01/12/18 01/12/18 16:05 16:15 16:25 16:27 Pulse 74 76 74 82 Resp 18 23 20 16 B/P (MAP) 179/83 (115) 177/83 (114) 173/81 (111) 170/79 (109) Pulse Ox 92 O2 Delivery Room Air Room Air Room Air Room Air 01/12/18 01/12/18 01/12/18 01/12/18 16:35 16:45 16:55 17:05 Pulse 86 80 86 80 Resp 21 30 23 B/P (MAP) 168/76 (106) 167/77 (107) 179/82 (114) 169/76 (107) Pulse Ox 91 95 91 O2 Delivery Room Air Room Air Room Air Room Air 01/12/18 01/12/18 01/12/18 01/12/18 17:15 17:25 17:35 17:45 Pulse 84 84 78 78 Resp 24 23 24 20 B/P (MAP) 164/74 (104) 160/74 (102) 169/76 (107) 155/69 (97) Pulse Ox 91 91 94 O2 Delivery Room Air Room Air Room Air Room Air 01/12/18 01/12/18 01/12/18 01/12/18 17:55 18:05 18:15 18:25 Pulse 76 66 66 74 Resp 24 24 22 B/P (MAP) 152/66 (94) 153/67 (95) 162/70 (100) 170/74 (106) Pulse Ox 92 93 O2 Delivery Room Air Room Air Room Air Room Air 01/12/18 01/12/18 01/12/18 01/12/18 18:35 18:45 19:00 19:41 Temp 97.9 97.9 Pulse 74 76 75 Resp 22 23 20 B/P (MAP) 167/74 (105) 150/67 (94) 138/42 (74) Pulse Ox 99 O2 Delivery Room Air Room Air Nasal Cannula Nasal Cannula O2 Flow Rate 2.0 01/12/18 01/12/18 01/12/18 01/13/18 21:33 22:29 23:00 03:12 Temp 97.7 99.5 97.7 99.5 Pulse 75 60 60 Resp 20 20 B/P (MAP) 138/42 149/43 (78) 156/46 (82) Pulse Ox 96 98 O2 Delivery Nasal Cannula Nasal Cannula Nasal Cannula O2 Flow Rate 2.0 01/13/18 01/13/18 01/13/18 01/13/18 03:51 04:51 07:00 08:32 Temp 98.4 98.4 Pulse 59 59 Resp 17 B/P (MAP) 146/50 (82) 146/50 Pulse Ox 98 98 O2 Delivery Nasal Cannula Nasal Cannula Nasal Cannula O2 Flow Rate 2.0 2.0 01/13/18 01/13/18 08:32 08:50 Pulse 59 B/P (MAP) 146/50 Pulse Ox 98 O2 Delivery Nasal Cannula O2 Flow Rate 2.0 Intake and Output 01/12/18 01/12/18 01/13/18 15:00 23:00 07:00 Intake Total 240 ml 240 ml Output Total 0 ml Balance 240 ml 240 ml CATHIE KNIHGT MD Jan 13, 2018 09:35
--- NOTE | 2018-01-13 10:33 | PDOC2 ---
CONSULT Date of Consult Date of Consult DATE: 01/13/18 TIME: 10:15 Reason for Consult Reason for Consult: Chest pain, dyspnea Referring Physician Referring Physician: Dr. Be Identification/Chief Complaint Chief Complaint Dyspnea & chest pain Source Source: Chart review, Patient History of Present Illness Reason for Visit: Patient is a 62 yo female that has been experiencing increasing dyspnea on exertion that seems to lead to chest pain shortly thereafter. She reports this has been going on since Friday evening. Pt states she does not have any chest pain at rest. Her nausea from yesterday has improved. Cardiac history includes HTN, CAD, MS, CHF, CABG, PCI, & PPM. Past Medical History Cardiovascular: CAD, CHF, HTN, MS, Hyperlipidemia Pulmonary: COPD, Other CENTRAL NERVOUS SYSTEM: Periperal neuropathy GI: GERD Heme/Onc: No pertinent hx Hepatobiliary: No pertinent hx Psych: No pertinent hx Musculoskeletal: low back pain, Osteoarthritis Rheumatologic: No pertinent hx Renal/: Chronic renal insuff Endocrine: Diabetes Past Surgical History Past Surgical History: Pacemaker, Appendectomy, Cholecystectomy, CABG, Hernia Repair, Total knee replacement, Hysterectomy, Other Family History Family History: Diabetes Social History ALCOHOL: none Drugs: None Current Problem List Problem List Problems Medical Problems: (1) History of coronary artery disease Status: Acute Current Medications Current Medications Current Medications Aspirin (Children'S Aspirin) 324 mg 1X ONCE PO Last administered on at 15:05; Start 01/12/18 at 14:30; Stop 01/12/18 at 14:33; Status DC Morphine Sulfate (Morphine Sulfate) 4 mg 1X ONCE IV Last administered on 01/12at 15:36; Start 01/12/18 at 14:30; Stop 01/12/18 at 14:33; Status DC Nitroglycerin (Nitro-Bid Oint) 1 inch 1X ONCE TP Last administered on at 14:30; Start 01/12/18 at 14:30; Stop 01/12/18 at 14:33; Status DC Ondansetron HCl (Zofran) 4 mg 1X ONCE IV Last administered on 01/12/18at 14:48 ; Start 01/12/18 at 14:30; Stop 01/12/18 at 14:33; Status DC Labetalol HCl (Normodyne Iv Push) 20 mg 1X ONCE IVP Last administered on 01/12at 14:49; Start 01/12/18 at 14:30; Stop 01/12/18 at 14:33; Status DC Oxycodone/ Acetaminophen (Percocet 10/325) 1 tab PRN Q6HRS PRN PO SEVERE PAIN Last administered on 01/13/18at 03:51; Start 01/12/18 at 20:45; Stop 01/13/18 at 09:33; Status DC Zolpidem Tartrate (Ambien) 5 mg PRN QHS PRN PO INSOMNIA Last administered on at 21:32; Start 01/12/18 at 20:45 Acetaminophen (Tylenol) 650 mg PRN Q6HRS PRN PO MILD PAIN; Start 01/12/18 at 20:45 Ondansetron HCl (Zofran Odt) 4 mg 1X ONCE PO ; Start 01/12/18 at 21:15; Stop 01/12/18 at 21:16; Status DC Ondansetron HCl (Zofran) 4 mg PRN Q6HRS PRN IV NAUSEA/VOMITING; Start at 22:00 Morphine Sulfate (Morphine Sulfate) 2 mg PRN Q4HRS PRN IV PAIN; Start at 22:00 Senna/Docusate Sodium (Senna Plus) 1 tab BID PO Last administered on at 08:32; Start 01/12/18 at 23:00 Heparin Sodium (Porcine) (Heparin Sodium) 5,000 unit Q8HRS SQ Last administered on 01/13/18at 05:16; Start 01/12/18 at 22:00 Aspirin (Ecotrin) 81 mg DAILY PO Last administered on 01/13/18at 08:50; Start 01/13/18 at 09:00 Atorvastatin Calcium (Lipitor) 20 mg HS PO Last administered on 01/12/18at 22: 29; Start 01/12/18 at 23:00 Clopidogrel Bisulfate (Plavix) 75 mg DAILY PO Last administered on 01/13/18at 08:49; Start 01/13/18 at 09:00 Ferrous Sulfate (Feosol) 325 mg DAILY PO Last administered on 01/13/18at 08:49 ; Start 01/13/18 at 09:00 Furosemide (Lasix) 80 mg DAILY PO ; Start 01/13/18 at 09:00; Stop 01/13/18 at 09:00; Status DC Glimepiride (Amaryl) 2 mg DAILY PO Last administered on 01/13/18at 08:49; Start 01/13/18 at 09:00 Losartan Potassium (Cozaar) 50 mg DAILY PO Last administered on 01/13/18at 08: 50; Start 01/13/18 at 09:00 Metoprolol Tartrate (Lopressor) 25 mg BID PO Last administered on 01/13/18at 08 :32; Start 01/12/18 at 23:00 Nitroglycerin (Nitrostat) 0.4 mg PRN Q5MIN PRN SL CHEST PAIN; Start 01/12/18 at 22:00 Potassium Chloride (Klor-Con) 10 meq BID PO Last administered on 01/13/18at 08: 31; Start 01/12/18 at 23:00 Non-Formulary Medication (Albuterol Sulfate (Albuterol Sulfate Conc Neb Soln)) 5 mg PRN PRN NEB WHEEZING; Start 01/12/18 at 22:00; Stop 01/12/18 at 22:17; Status DC Insulin Human Lispro (HumaLOG) 10 units TIDWMEALS SQ Last administered on 01/13at 08:39; Start 01/13/18 at 08:00 Insulin Glargine (Lantus) 15 units QHS SQ Last administered on 01/12/18at 22:33 ; Start 01/12/18 at 23:00 Pantoprazole Sodium (Protonix) 40 mg DAILYAC PO Last administered on at 08:31; Start 01/13/18 at 07:30 Insulin Human Lispro (HumaLOG) 0-5 UNITS TIDWMEALS SQ ; Start 01/13/18 at 08:00 ; Stop 01/13/18 at 08:11; Status DC Dextrose (Dextrose 50%-Water Syringe) 12.5 gm PRN Q15MIN PRN IV SEE COMMENTS; Start 01/12/18 at 22:00 Albuterol Sulfate (Ventolin Neb Soln) 2.5 mg PRN Q6HRS PRN NEB SHORTNESS OF BREATH; Start 01/12/18 at 22:30 Furosemide (Lasix) 20 mg BID92 IVP ; Start 01/13/18 at 09:00 Enalaprilat (Vasotec Inj) 1.25 mg PRN Q6HRS PRN IVP HYPERTENSION, SEE COMMENTS ; Start 01/13/18 at 08:15 Oxycodone/ Acetaminophen (Percocet 10/325) 2 tab PRN Q6HRS PRN PO SEVERE PAIN; Start 01/13/18 at 09:45 Active Scripts Active Novolog Flexpen (Insulin Aspart) 100 Unit/1 Ml Insuln.pen 10 Unit SQ TID 30 Days Levemir (Insulin Detemir) 100 Unit/1 Ml Vial 15 Unit SQ TID 30 Days [Pantoprazole] 40 MG Tablet.dr 40 Mg PO DAILYAC 30 Days Amaryl (Glimepiride) 2 Mg Tablet 2 Mg PO DAILY 30 Days Reported Furosemide 80 Mg Tablet 80 Mg PO DAILY Albuterol Sulfate Conc Neb Soln (Albuterol Sulfate) 2.5 Mg/0.5 Ml Vial.neb 5 Mg NEB PRN PRN Losartan Potassium 50 Mg Tablet 50 Mg PO DAILY Metoprolol Tartrate 25 Mg Tablet 1 Tab PO BID Ferrous Sulfate 325 Mg Tablet 1 Tab PO DAILY NITROGLYCERIN SubLingual (Nitroglycerin) 0.4 Mg Tab.subl 0.4 Mg SL PRN Q5MIN PRN Atorvastatin Calcium 20 Mg Tablet 20 Mg PO HS Potassium Chloride 10 Meq Capsule.er 10 Meq PO BID Aspir 81 (Aspirin) 81 Mg Tablet.dr 1 Tab PO DAILY Clopidogrel (Clopidogrel Bisulfate) 75 Mg Tablet 1 Tab PO DAILY Allergies Allergies: Coded Allergies: ibuprofen (Verified Adverse Reaction, Intermediate, Nausea and Vomiting, ) Physical Exam Lungs: Clear to auscultation Heart: Regular rate, Normal S1, Normal S2 Vitals VITALS Vital Signs Date Time Temp Pulse Resp B/P (MAP) Pulse Ox O2 Delivery O2 Flow Rate FiO2 01/13/18 08:50 59 146/50 01/13/18 08:32 98 Nasal Cannula 2.0 01/13/18 07:00 98.4 17 98.4 Labs Labs Laboratory Tests Test 01/12/18 14:45 01/12/18 19:35 01/12/18 20:27 01/12/18 22:40 White Blood Count 8.3 x10^3/uL (4.0-11.0) Red Blood Count 4.30 x10^6/uL (3.50-5.40) Hemoglobin 12.0 g/dL (12.0-15.5) Hematocrit 36.6 % (36.0-47.0) Mean Corpuscular Volume 85 fL (79-100) Mean Corpuscular Hemoglobin 28 pg (25-35) Mean Corpuscular Hemoglobin Concent 33 g/dL (31-37) Red Cell Distribution Width 16.4 % (11.5-14.5) Platelet Count 305 x10^3/uL (140-400) Neutrophils (%) (Auto) 79 % (31-73) Lymphocytes (%) (Auto) 13 % (24-48) Monocytes (%) (Auto) 6 % (0-9) Eosinophils (%) (Auto) 1 % (0-3) Basophils (%) (Auto) 1 % (0-3) Neutrophils # (Auto) 6.6 x10^3uL (1.8-7.7) Lymphocytes # (Auto) 1.1 x10^3/uL (1.0-4.8) Monocytes # (Auto) 0.5 x10^3/uL (0.0-1.1) Eosinophils # (Auto) 0.0 x10^3/uL (0.0-0.7) Basophils # (Auto) 0.1 x10^3/uL (0.0-0.2) Prothrombin Time 13.3 SEC (11.7-14.0) Prothromb Time International Ratio 1.1 (0.8-1.1) Sodium Level 139 mmol/L (136-145) Potassium Level 3.9 mmol/L (3.5-5.1) Chloride Level 99 mmol/L (98-107) Carbon Dioxide Level 34 mmol/L (21-32) Anion Gap 6 (6-14) Blood Urea Nitrogen 12 mg/dL (7-20) Creatinine 0.8 mg/dL (0.6-1.0) Estimated GFR (Cockcroft-Gault) 87.7 BUN/Creatinine Ratio 15 (6-20) Glucose Level 141 mg/dL (70-99) Calcium Level 10.3 mg/dL (8.5-10.1) Total Bilirubin 0.4 mg/dL (0.2-1.0) Aspartate Amino Transf (AST/SGOT) 19 U/L (15-37) Alanine Aminotransferase (ALT/SGPT) 27 U/L (14-59) Alkaline Phosphatase 95 U/L (46-116) Creatine Kinase 55 U/L (26-192) Creatine Kinase MB (Mass) 0.7 ng/mL (0.0-3.6) Creatine Kinase MB Relative Index % (0-4) Troponin I Quantitative < 0.017 ng/mL (0.000-0.055) < 0.017 ng/mL (0.000-0.055) < 0.017 ng/mL (0.000-0.055) DC-Bok-R-Type Natriuretic Peptide 1654 pg/mL (0-124) Total Protein 8.5 g/dL (6.4-8.2) Albumin 3.5 g/dL (3.4-5.0) Albumin/Globulin Ratio 0.7 (1.0-1.7) Lipase 94 U/L (73-393) Glucose (Fingerstick) 154 mg/dL (70-99) Test 01/13/18 03:45 01/13/18 07:29 Sodium Level 141 mmol/L (136-145) Potassium Level 3.7 mmol/L (3.5-5.1) Chloride Level 101 mmol/L (98-107) Carbon Dioxide Level 36 mmol/L (21-32) Anion Gap 4 (6-14) Blood Urea Nitrogen 14 mg/dL (7-20) Creatinine 0.8 mg/dL (0.6-1.0) Estimated GFR (Cockcroft-Gault) 87.7 Glucose Level 152 mg/dL (70-99) Calcium Level 9.5 mg/dL (8.5-10.1) Glucose (Fingerstick) 117 mg/dL (70-99) Laboratory Tests Test 01/12/18 14:45 01/12/18 19:35 01/12/18 20:27 01/12/18 22:40 White Blood Count 8.3 x10^3/uL (4.0-11.0) Red Blood Count 4.30 x10^6/uL (3.50-5.40) Hemoglobin 12.0 g/dL (12.0-15.5) Hematocrit 36.6 % (36.0-47.0) Mean Corpuscular Volume 85 fL (79-100) Mean Corpuscular Hemoglobin 28 pg (25-35) Mean Corpuscular Hemoglobin Concent 33 g/dL (31-37) Red Cell Distribution Width 16.4 % (11.5-14.5) Platelet Count 305 x10^3/uL (140-400) Neutrophils (%) (Auto) 79 % (31-73) Lymphocytes (%) (Auto) 13 % (24-48) Monocytes (%) (Auto) 6 % (0-9) Eosinophils (%) (Auto) 1 % (0-3) Basophils (%) (Auto) 1 % (0-3) Neutrophils # (Auto) 6.6 x10^3uL (1.8-7.7) Lymphocytes # (Auto) 1.1 x10^3/uL (1.0-4.8) Monocytes # (Auto) 0.5 x10^3/uL (0.0-1.1) Eosinophils # (Auto) 0.0 x10^3/uL (0.0-0.7) Basophils # (Auto) 0.1 x10^3/uL (0.0-0.2) Prothrombin Time 13.3 SEC (11.7-14.0) Prothromb Time International Ratio 1.1 (0.8-1.1) Sodium Level 139 mmol/L (136-145) Potassium Level 3.9 mmol/L (3.5-5.1) Chloride Level 99 mmol/L (98-107) Carbon Dioxide Level 34 mmol/L (21-32) Anion Gap 6 (6-14) Blood Urea Nitrogen 12 mg/dL (7-20) Creatinine 0.8 mg/dL (0.6-1.0) Estimated GFR (Cockcroft-Gault) 87.7 BUN/Creatinine Ratio 15 (6-20) Glucose Level 141 mg/dL (70-99) Calcium Level 10.3 mg/dL (8.5-10.1) Total Bilirubin 0.4 mg/dL (0.2-1.0) Aspartate Amino Transf (AST/SGOT) 19 U/L (15-37) Alanine Aminotransferase (ALT/SGPT) 27 U/L (14-59) Alkaline Phosphatase 95 U/L (46-116) Creatine Kinase 55 U/L (26-192) Creatine Kinase MB (Mass) 0.7 ng/mL (0.0-3.6) Creatine Kinase MB Relative Index % (0-4) Troponin I Quantitative < 0.017 ng/mL (0.000-0.055) < 0.017 ng/mL (0.000-0.055) < 0.017 ng/mL (0.000-0.055) NA-Yxm-U-Type Natriuretic Peptide 1654 pg/mL (0-124) Total Protein 8.5 g/dL (6.4-8.2) Albumin 3.5 g/dL (3.4-5.0) Albumin/Globulin Ratio 0.7 (1.0-1.7) Lipase 94 U/L (73-393) Glucose (Fingerstick) 154 mg/dL (70-99) Test 01/13/18 03:45 01/13/18 07:29 Sodium Level 141 mmol/L (136-145) Potassium Level 3.7 mmol/L (3.5-5.1) Chloride Level 101 mmol/L (98-107) Carbon Dioxide Level 36 mmol/L (21-32) Anion Gap 4 (6-14) Blood Urea Nitrogen 14 mg/dL (7-20) Creatinine 0.8 mg/dL (0.6-1.0) Estimated GFR (Cockcroft-Gault) 87.7 Glucose Level 152 mg/dL (70-99) Calcium Level 9.5 mg/dL (8.5-10.1) Glucose (Fingerstick) 117 mg/dL (70-99) Assessment/Plan Assessment/Plan CHF exacerbation - lasix already ordered Patient had a heart catheterization done earlier this year that did not show significant issues with her coronary anatomy. A lot of the patient's pains are related to back problems with chronic pain. At this point I don't think that her discomforts are angina. Will continue to follow. Thank you very much for asking me to participate in the care of this patient LIZBET LINDSAY MD Jan 13, 2018 10:33
[2018-01-13 11:00] VITALS: BP 132/72
[2018-01-13] MEDS: FUROSEMIDE 20 MG/2 ML VIAL. IVP SCH ×2 (11:05→15:55)
[2018-01-13 15:00] VITALS: BP 136/58
[2018-01-13 19:00] VITALS: BP 149/53
[2018-01-13] MEDS: ATORVASTATIN CALCIUM 20 MG TABLET PO SCH (21:55)
[2018-01-13] MEDS: ZOLPIDEM 5 MG TABLET. PO PRN (21:56)
[2018-01-13] MEDS: INSULIN GLARGINE 300 UNITS/3 ML INSULN.PEN. SQ SCH (22:03)
[2018-01-13 23:00] VITALS: BP 143/57
[2018-01-14 03:00] VITALS: BP 143/61
[2018-01-14] MEDS: oxyCODONE/APAP 10/325 1 TAB TABLET PO PRN ×4 (03:05→23:46)
[2018-01-14] MEDS: HEPARIN for SUB-Q USE 5,000 UNIT/ML VIAL. SQ SCH ×3 (06:04→20:38)
[2018-01-14 07:00] VITALS: BP 129/29
[2018-01-14 08:37] LABS: CREATININE 0.9 mg/dL (0.6-1.0); GFR 76.5; POTASSIUM 4.5 mmol/L (3.5-5.1)
[2018-01-14] MEDS: FUROSEMIDE 20 MG/2 ML VIAL. IVP SCH ×2 (08:37→13:11)
[2018-01-14] MEDS: CLOPIDOGREL BISULFATE 75 MG TABLET PO SCH (08:38)
[2018-01-14] MEDS: POTASSIUM CHLORIDE 10 MEQ TABLET.ER. PO SCH ×2 (08:38→20:33)
[2018-01-14] MEDS: ASPIRIN ENTERIC COATED 81 MG TABLET.DR. PO SCH (08:38)
[2018-01-14] MEDS: FERROUS SULFATE 325 MG TABLET. PO SCH (08:38)
[2018-01-14] MEDS: PANTOPRAZOLE 40 MG TABLET.DR. PO SCH (08:38)
[2018-01-14] MEDS: SENNOSIDES/DOCUSATE 8.6/50MG TABLET. PO SCH ×2 (08:38→20:33)
[2018-01-14] MEDS: GLIMEPIRIDE 2 MG TABLET. PO SCH (08:38)
[2018-01-14] MEDS: INSULIN LISPRO 300 UNITS/3 ML INSULN.PEN. SQ SCH ×3 (08:48→18:08)
--- NOTE | 2018-01-14 08:51 | PDOC ---
PROGRESS NOTES Subjective Subjective Patient reports that her shortness of breath & chest pain are improved from yesterday. She is still having some dyspnea on exertion that improves with oxygen. Objective Objective Vital Signs Date Time Temp Pulse Resp B/P (MAP) Pulse Ox O2 Delivery O2 Flow Rate FiO2 01/14/18 07:00 98.5 60 18 129/29 (62) 98 Nasal Cannula 1.5 98.5 Intake and Output 01/14/18 07:00 Intake Total 2550 ml Balance 2550 ml Intake Oral 2550 ml # Voids 6 # Bowel Movements 1 Physical Exam Physical Exam No significant cardiac changes. Heart: Regular rate, Normal S1, Normal S2 Assessment Assessment Problems Medical Problems: (1) History of coronary artery disease Status: Acute Plan Plan of Care CHF exacerbation - continue lasix Will continue to follow Comment Review of Relevant I have reviewed the following items nolan (where applicable) has been applied. Labs Laboratory Tests Test 01/12/18 14:45 01/12/18 19:35 01/12/18 20:27 01/12/18 22:40 White Blood Count 8.3 x10^3/uL (4.0-11.0) Red Blood Count 4.30 x10^6/uL (3.50-5.40) Hemoglobin 12.0 g/dL (12.0-15.5) Hematocrit 36.6 % (36.0-47.0) Mean Corpuscular Volume 85 fL (79-100) Mean Corpuscular Hemoglobin 28 pg (25-35) Mean Corpuscular Hemoglobin Concent 33 g/dL (31-37) Red Cell Distribution Width 16.4 % (11.5-14.5) Platelet Count 305 x10^3/uL (140-400) Neutrophils (%) (Auto) 79 % (31-73) Lymphocytes (%) (Auto) 13 % (24-48) Monocytes (%) (Auto) 6 % (0-9) Eosinophils (%) (Auto) 1 % (0-3) Basophils (%) (Auto) 1 % (0-3) Neutrophils # (Auto) 6.6 x10^3uL (1.8-7.7) Lymphocytes # (Auto) 1.1 x10^3/uL (1.0-4.8) Monocytes # (Auto) 0.5 x10^3/uL (0.0-1.1) Eosinophils # (Auto) 0.0 x10^3/uL (0.0-0.7) Basophils # (Auto) 0.1 x10^3/uL (0.0-0.2) Prothrombin Time 13.3 SEC (11.7-14.0) Prothromb Time International Ratio 1.1 (0.8-1.1) Sodium Level 139 mmol/L (136-145) Potassium Level 3.9 mmol/L (3.5-5.1) Chloride Level 99 mmol/L (98-107) Carbon Dioxide Level 34 mmol/L (21-32) Anion Gap 6 (6-14) Blood Urea Nitrogen 12 mg/dL (7-20) Creatinine 0.8 mg/dL (0.6-1.0) Estimated GFR (Cockcroft-Gault) 87.7 BUN/Creatinine Ratio 15 (6-20) Glucose Level 141 mg/dL (70-99) Calcium Level 10.3 mg/dL (8.5-10.1) Total Bilirubin 0.4 mg/dL (0.2-1.0) Aspartate Amino Transf (AST/SGOT) 19 U/L (15-37) Alanine Aminotransferase (ALT/SGPT) 27 U/L (14-59) Alkaline Phosphatase 95 U/L (46-116) Creatine Kinase 55 U/L (26-192) Creatine Kinase MB (Mass) 0.7 ng/mL (0.0-3.6) Creatine Kinase MB Relative Index % (0-4) Troponin I Quantitative < 0.017 ng/mL (0.000-0.055) < 0.017 ng/mL (0.000-0.055) < 0.017 ng/mL (0.000-0.055) OE-Dkm-F-Type Natriuretic Peptide 1654 pg/mL (0-124) Total Protein 8.5 g/dL (6.4-8.2) Albumin 3.5 g/dL (3.4-5.0) Albumin/Globulin Ratio 0.7 (1.0-1.7) Lipase 94 U/L (73-393) Glucose (Fingerstick) 154 mg/dL (70-99) Test 01/13/18 03:45 01/13/18 07:29 01/13/18 11:36 01/13/18 16:21 Sodium Level 141 mmol/L (136-145) Potassium Level 3.7 mmol/L (3.5-5.1) Chloride Level 101 mmol/L (98-107) Carbon Dioxide Level 36 mmol/L (21-32) Anion Gap 4 (6-14) Blood Urea Nitrogen 14 mg/dL (7-20) Creatinine 0.8 mg/dL (0.6-1.0) Estimated GFR (Cockcroft-Gault) 87.7 Glucose Level 152 mg/dL (70-99) Calcium Level 9.5 mg/dL (8.5-10.1) Glucose (Fingerstick) 117 mg/dL (70-99) 98 mg/dL (70-99) 59 mg/dL (70-99) Test 01/13/18 17:25 01/13/18 21:43 01/14/18 07:54 01/14/18 08:05 Glucose (Fingerstick) 65 mg/dL (70-99) 204 mg/dL (70-99) 145 mg/dL (70-99) Sodium Level 142 mmol/L (136-145) Potassium Level 4.5 mmol/L (3.5-5.1) Chloride Level 104 mmol/L (98-107) Carbon Dioxide Level 35 mmol/L (21-32) Anion Gap 3 (6-14) Blood Urea Nitrogen 14 mg/dL (7-20) Creatinine 0.9 mg/dL (0.6-1.0) Estimated GFR (Cockcroft-Gault) 76.5 Glucose Level 143 mg/dL (70-99) Calcium Level 9.0 mg/dL (8.5-10.1) Laboratory Tests Test 01/13/18 11:36 01/13/18 16:21 01/13/18 17:25 01/13/18 21:43 Glucose (Fingerstick) 98 mg/dL (70-99) 59 mg/dL (70-99) 65 mg/dL (70-99) 204 mg/dL (70-99) Test 01/14/18 07:54 01/14/18 08:05 Glucose (Fingerstick) 145 mg/dL (70-99) Sodium Level 142 mmol/L (136-145) Potassium Level 4.5 mmol/L (3.5-5.1) Chloride Level 104 mmol/L (98-107) Carbon Dioxide Level 35 mmol/L (21-32) Anion Gap 3 (6-14) Blood Urea Nitrogen 14 mg/dL (7-20) Creatinine 0.9 mg/dL (0.6-1.0) Estimated GFR (Cockcroft-Gault) 76.5 Glucose Level 143 mg/dL (70-99) Calcium Level 9.0 mg/dL (8.5-10.1) Medications Current Medications Aspirin (Children'S Aspirin) 324 mg 1X ONCE PO Last administered on at 15:05; Start 01/12/18 at 14:30; Stop 01/12/18 at 14:33; Status DC Morphine Sulfate (Morphine Sulfate) 4 mg 1X ONCE IV Last administered on 01/12at 15:36; Start 01/12/18 at 14:30; Stop 01/12/18 at 14:33; Status DC Nitroglycerin (Nitro-Bid Oint) 1 inch 1X ONCE TP Last administered on at 14:30; Start 01/12/18 at 14:30; Stop 01/12/18 at 14:33; Status DC Ondansetron HCl (Zofran) 4 mg 1X ONCE IV Last administered on 01/12/18at 14:48 ; Start 01/12/18 at 14:30; Stop 01/12/18 at 14:33; Status DC Labetalol HCl (Normodyne Iv Push) 20 mg 1X ONCE IVP Last administered on 01/12at 14:49; Start 01/12/18 at 14:30; Stop 01/12/18 at 14:33; Status DC Oxycodone/ Acetaminophen (Percocet 10/325) 1 tab PRN Q6HRS PRN PO SEVERE PAIN Last administered on 01/13/18at 03:51; Start 01/12/18 at 20:45; Stop 01/13/18 at 09:33; Status DC Zolpidem Tartrate (Ambien) 5 mg PRN QHS PRN PO INSOMNIA Last administered on at 21:56; Start 01/12/18 at 20:45 Acetaminophen (Tylenol) 650 mg PRN Q6HRS PRN PO MILD PAIN; Start 01/12/18 at 20:45 Ondansetron HCl (Zofran Odt) 4 mg 1X ONCE PO ; Start 01/12/18 at 21:15; Stop 01/12/18 at 21:16; Status DC Ondansetron HCl (Zofran) 4 mg PRN Q6HRS PRN IV NAUSEA/VOMITING; Start at 22:00 Morphine Sulfate (Morphine Sulfate) 2 mg PRN Q4HRS PRN IV PAIN; Start at 22:00 Senna/Docusate Sodium (Senna Plus) 1 tab BID PO Last administered on 08:32; Start 01/12/18 at 23:00 Heparin Sodium (Porcine) (Heparin Sodium) 5,000 unit Q8HRS SQ Last administered on 01/14/18at 06:04; Start 01/12/18 at 22:00 Aspirin (Ecotrin) 81 mg DAILY PO Last administered on 01/13/18at 08:50; Start 01/13/18 at 09:00 Atorvastatin Calcium (Lipitor) 20 mg HS PO Last administered on 01/13/18at 21: 55; Start 01/12/18 at 23:00 Clopidogrel Bisulfate (Plavix) 75 mg DAILY PO Last administered on 01/13/18at 08:49; Start 01/13/18 at 09:00 Ferrous Sulfate (Feosol) 325 mg DAILY PO Last administered on 01/13/18at 08:49 ; Start 01/13/18 at 09:00 Furosemide (Lasix) 80 mg DAILY PO ; Start 01/13/18 at 09:00; Stop 01/13/18 at 09:00; Status DC Glimepiride (Amaryl) 2 mg DAILY PO Last administered on 01/13/18at 08:49; Start 01/13/18 at 09:00 Losartan Potassium (Cozaar) 50 mg DAILY PO Last administered on 01/13/18at 08: 50; Start 01/13/18 at 09:00 Metoprolol Tartrate (Lopressor) 25 mg BID PO Last administered on 01/13/18at 21 :56; Start 01/12/18 at 23:00 Nitroglycerin (Nitrostat) 0.4 mg PRN Q5MIN PRN SL CHEST PAIN; Start 01/12/18 at 22:00 Potassium Chloride (Klor-Con) 10 meq BID PO Last administered on 01/13/18at 21: 56; Start 01/12/18 at 23:00 Non-Formulary Medication (Albuterol Sulfate (Albuterol Sulfate Conc Neb Soln)) 5 mg PRN PRN NEB WHEEZING; Start 01/12/18 at 22:00; Stop 01/12/18 at 22:17; Status DC Insulin Human Lispro (HumaLOG) 10 units TIDWMEALS SQ Last administered on 01/13at 13:37; Start 01/13/18 at 08:00; Stop 01/13/18 at 18:09; Status DC Insulin Glargine (Lantus) 15 units QHS SQ Last administered on 01/13/18at 22:03 ; Start 01/12/18 at 23:00 Pantoprazole Sodium (Protonix) 40 mg DAILYAC PO Last administered on at 08:31; Start 01/13/18 at 07:30 Insulin Human Lispro (HumaLOG) 0-5 UNITS TIDWMEALS SQ ; Start 01/13/18 at 08:00 ; Stop 01/13/18 at 08:11; Status DC Dextrose (Dextrose 50%-Water Syringe) 12.5 gm PRN Q15MIN PRN IV SEE COMMENTS; Start 01/12/18 at 22:00 Albuterol Sulfate (Ventolin Neb Soln) 2.5 mg PRN Q6HRS PRN NEB SHORTNESS OF BREATH; Start 01/12/18 at 22:30 Furosemide (Lasix) 20 mg BID92 IVP Last administered on 01/13/18at 15:55; Start 01/13/18 at 09:00 Enalaprilat (Vasotec Inj) 1.25 mg PRN Q6HRS PRN IVP HYPERTENSION, SEE COMMENTS ; Start 01/13/18 at 08:15 Oxycodone/ Acetaminophen (Percocet 10/325) 2 tab PRN Q6HRS PRN PO SEVERE PAIN Last administered on 01/14/18at 03:05; Start 01/13/18 at 09:45 Insulin Human Lispro (HumaLOG) 7 units TIDWMEALS SQ ; Start 01/14/18 at 08:00 Active Scripts Active Novolog Flexpen (Insulin Aspart) 100 Unit/1 Ml Insuln.pen 10 Unit SQ TID 30 Days Levemir (Insulin Detemir) 100 Unit/1 Ml Vial 15 Unit SQ TID 30 Days [Pantoprazole] 40 MG Tablet. 40 Mg PO DAILYAC 30 Days Amaryl (Glimepiride) 2 Mg Tablet 2 Mg PO DAILY 30 Days Reported Furosemide 80 Mg Tablet 80 Mg PO DAILY Albuterol Sulfate Conc Neb Soln (Albuterol Sulfate) 2.5 Mg/0.5 Ml Vial.neb 5 Mg NEB PRN PRN Losartan Potassium 50 Mg Tablet 50 Mg PO DAILY Metoprolol Tartrate 25 Mg Tablet 1 Tab PO BID Ferrous Sulfate 325 Mg Tablet 1 Tab PO DAILY NITROGLYCERIN SubLingual (Nitroglycerin) 0.4 Mg Tab.subl 0.4 Mg SL PRN Q5MIN PRN Atorvastatin Calcium 20 Mg Tablet 20 Mg PO HS Potassium Chloride 10 Meq Capsule.er 10 Meq PO BID Aspir 81 (Aspirin) 81 Mg Tablet. 1 Tab PO DAILY Clopidogrel (Clopidogrel Bisulfate) 75 Mg Tablet 1 Tab PO DAILY Vitals/I & O Vital Sign - Last 24 Hours 01/13/18 01/13/18 01/13/18 01/13/18 08:50 11:00 11:05 12:05 Temp 98.2 98.2 Pulse 59 60 Resp 18 20 18 B/P (MAP) 146/50 132/72 (92) Pulse Ox 99 O2 Delivery Nasal Cannula Nasal Cannula O2 Flow Rate 2.0 01/13/18 01/13/18 01/13/18 01/13/18 15:00 18:25 19:00 20:00 Temp 97.5 99.0 97.5 99.0 Pulse 59 60 Resp 22 18 22 B/P (MAP) 136/58 (84) 149/53 (85) Pulse Ox 93 93 98 O2 Delivery Nasal Cannula Nasal Cannula Nasal Cannula Nasal Cannula O2 Flow Rate 2.0 2.0 01/13/18 01/13/18 01/14/18 01/14/18 21:56 23:00 03:00 03:05 Temp 98.6 97.5 98.6 97.5 Pulse 60 59 60 Resp 22 22 B/P (MAP) 149/53 143/57 (85) 143/61 (88) Pulse Ox 100 99 O2 Delivery Nasal Cannula Nasal Cannula Nasal Cannula O2 Flow Rate 2.0 2.0 01/14/18 01/14/18 04:05 07:00 Temp 98.5 98.5 Pulse 60 Resp 18 B/P (MAP) 129/29 (62) Pulse Ox 98 O2 Delivery Nasal Cannula Nasal Cannula O2 Flow Rate 2.0 1.5 Intake and Output 01/13/18 01/13/18 01/14/18 15:00 23:00 07:00 Intake Total 1550 ml 1000 ml Balance 1550 ml 1000 ml LIZBET LINDSAY MD Jan 14, 2018 08:51
--- NOTE | 2018-01-14 10:36 | PDOC ---
PROGRESS NOTES Chief Complaint Chief Complaint CP - EKG , trops reassuring acute on chronic combined CHF, morbid obesity, BMI 44 ANEMIA weakness and debility Dm2, insulin dependent HX severe hypercapnic resp failure needing BIPAP narcotic dependence History of Present Illness History of Present Illness SHe describes the chest pain as tightness, midsternal, no diaphoresis but could not catch her breath On O2 when necessary at home, still has no BiPAP or CPAP at night at home Labs an EKG reassuring Plan: Blood pressure high, Vasotec when necessary Home meds I have reconciled including 2 tablets of Percocet 10-history of chronic back pain continue iv lasix Vitals Vitals Vital Signs Date Time Temp Pulse Resp B/P (MAP) Pulse Ox O2 Delivery O2 Flow Rate FiO2 01/14/18 09:24 20 98 Nasal Cannula 1.5 01/14/18 07:00 98.5 60 129/29 (62) 98.5 Physical Exam General: Alert, Oriented X3, Cooperative, No acute distress, mild distress Heart: Regular rate, Normal S1, Normal S2 Lungs: Clear, Crackles Abdomen: Normal bowel sounds, Soft, No tenderness, No hepatosplenomegaly, No masses Extremities: No clubbing, No cyanosis, No edema, Normal pulses, No tenderness/ swelling Skin: No rashes, No breakdown, No significant lesion Labs LABS Laboratory Tests Test 01/13/18 11:36 01/13/18 16:21 01/13/18 17:25 01/13/18 21:43 Glucose (Fingerstick) 98 mg/dL (70-99) 59 mg/dL (70-99) 65 mg/dL (70-99) 204 mg/dL (70-99) Test 01/14/18 07:54 01/14/18 08:05 Glucose (Fingerstick) 145 mg/dL (70-99) Sodium Level 142 mmol/L (136-145) Potassium Level 4.5 mmol/L (3.5-5.1) Chloride Level 104 mmol/L (98-107) Carbon Dioxide Level 35 mmol/L (21-32) Anion Gap 3 (6-14) Blood Urea Nitrogen 14 mg/dL (7-20) Creatinine 0.9 mg/dL (0.6-1.0) Estimated GFR (Cockcroft-Gault) 76.5 Glucose Level 143 mg/dL (70-99) Calcium Level 9.0 mg/dL (8.5-10.1) Assessment and Plan Assessmemt and Plan Problems Medical Problems: (1) History of coronary artery disease Status: Acute Comment Review of Relevant I have reviewed the following items nolan (where applicable) has been applied. Labs Laboratory Tests Test 01/12/18 14:45 01/12/18 19:35 01/12/18 20:27 01/12/18 22:40 White Blood Count 8.3 x10^3/uL (4.0-11.0) Red Blood Count 4.30 x10^6/uL (3.50-5.40) Hemoglobin 12.0 g/dL (12.0-15.5) Hematocrit 36.6 % (36.0-47.0) Mean Corpuscular Volume 85 fL (79-100) Mean Corpuscular Hemoglobin 28 pg (25-35) Mean Corpuscular Hemoglobin Concent 33 g/dL (31-37) Red Cell Distribution Width 16.4 % (11.5-14.5) Platelet Count 305 x10^3/uL (140-400) Neutrophils (%) (Auto) 79 % (31-73) Lymphocytes (%) (Auto) 13 % (24-48) Monocytes (%) (Auto) 6 % (0-9) Eosinophils (%) (Auto) 1 % (0-3) Basophils (%) (Auto) 1 % (0-3) Neutrophils # (Auto) 6.6 x10^3uL (1.8-7.7) Lymphocytes # (Auto) 1.1 x10^3/uL (1.0-4.8) Monocytes # (Auto) 0.5 x10^3/uL (0.0-1.1) Eosinophils # (Auto) 0.0 x10^3/uL (0.0-0.7) Basophils # (Auto) 0.1 x10^3/uL (0.0-0.2) Prothrombin Time 13.3 SEC (11.7-14.0) Prothromb Time International Ratio 1.1 (0.8-1.1) Sodium Level 139 mmol/L (136-145) Potassium Level 3.9 mmol/L (3.5-5.1) Chloride Level 99 mmol/L (98-107) Carbon Dioxide Level 34 mmol/L (21-32) Anion Gap 6 (6-14) Blood Urea Nitrogen 12 mg/dL (7-20) Creatinine 0.8 mg/dL (0.6-1.0) Estimated GFR (Cockcroft-Gault) 87.7 BUN/Creatinine Ratio 15 (6-20) Glucose Level 141 mg/dL (70-99) Calcium Level 10.3 mg/dL (8.5-10.1) Total Bilirubin 0.4 mg/dL (0.2-1.0) Aspartate Amino Transf (AST/SGOT) 19 U/L (15-37) Alanine Aminotransferase (ALT/SGPT) 27 U/L (14-59) Alkaline Phosphatase 95 U/L (46-116) Creatine Kinase 55 U/L (26-192) Creatine Kinase MB (Mass) 0.7 ng/mL (0.0-3.6) Creatine Kinase MB Relative Index % (0-4) Troponin I Quantitative < 0.017 ng/mL (0.000-0.055) < 0.017 ng/mL (0.000-0.055) < 0.017 ng/mL (0.000-0.055) [id number]-Type Natriuretic Peptide 1654 pg/mL (0-124) Total Protein 8.5 g/dL (6.4-8.2) Albumin 3.5 g/dL (3.4-5.0) Albumin/Globulin Ratio 0.7 (1.0-1.7) Lipase 94 U/L (73-393) Glucose (Fingerstick) 154 mg/dL (70-99) Test 01/13/18 03:45 01/13/18 07:29 01/13/18 11:36 01/13/18 16:21 Sodium Level 141 mmol/L (136-145) Potassium Level 3.7 mmol/L (3.5-5.1) Chloride Level 101 mmol/L (98-107) Carbon Dioxide Level 36 mmol/L (21-32) Anion Gap 4 (6-14) Blood Urea Nitrogen 14 mg/dL (7-20) Creatinine 0.8 mg/dL (0.6-1.0) Estimated GFR (Cockcroft-Gault) 87.7 Glucose Level 152 mg/dL (70-99) Calcium Level 9.5 mg/dL (8.5-10.1) Glucose (Fingerstick) 117 mg/dL (70-99) 98 mg/dL (70-99) 59 mg/dL (70-99) Test 01/13/18 17:25 01/13/18 21:43 01/14/18 07:54 01/14/18 08:05 Glucose (Fingerstick) 65 mg/dL (70-99) 204 mg/dL (70-99) 145 mg/dL (70-99) Sodium Level 142 mmol/L (136-145) Potassium Level 4.5 mmol/L (3.5-5.1) Chloride Level 104 mmol/L (98-107) Carbon Dioxide Level 35 mmol/L (21-32) Anion Gap 3 (6-14) Blood Urea Nitrogen 14 mg/dL (7-20) Creatinine 0.9 mg/dL (0.6-1.0) Estimated GFR (Cockcroft-Gault) 76.5 Glucose Level 143 mg/dL (70-99) Calcium Level 9.0 mg/dL (8.5-10.1) Laboratory Tests Test 01/13/18 11:36 01/13/18 16:21 01/13/18 17:25 01/13/18 21:43 Glucose (Fingerstick) 98 mg/dL (70-99) 59 mg/dL (70-99) 65 mg/dL (70-99) 204 mg/dL (70-99) Test 01/14/18 07:54 01/14/18 08:05 Glucose (Fingerstick) 145 mg/dL (70-99) Sodium Level 142 mmol/L (136-145) Potassium Level 4.5 mmol/L (3.5-5.1) Chloride Level 104 mmol/L (98-107) Carbon Dioxide Level 35 mmol/L (21-32) Anion Gap 3 (6-14) Blood Urea Nitrogen 14 mg/dL (7-20) Creatinine 0.9 mg/dL (0.6-1.0) Estimated GFR (Cockcroft-Gault) 76.5 Glucose Level 143 mg/dL (70-99) Calcium Level 9.0 mg/dL (8.5-10.1) Medications Current Medications Aspirin (Children'S Aspirin) 324 mg 1X ONCE PO Last administered on at 15:05; Start 01/12/18 at 14:30; Stop 01/12/18 at 14:33; Status DC Morphine Sulfate (Morphine Sulfate) 4 mg 1X ONCE IV Last administered on 01/12at 15:36; Start 01/12/18 at 14:30; Stop 01/12/18 at 14:33; Status DC Nitroglycerin (Nitro-Bid Oint) 1 inch 1X ONCE TP Last administered on at 14:30; Start 01/12/18 at 14:30; Stop 01/12/18 at 14:33; Status DC Ondansetron HCl (Zofran) 4 mg 1X ONCE IV Last administered on 01/12/18at 14:48 ; Start 01/12/18 at 14:30; Stop 01/12/18 at 14:33; Status DC Labetalol HCl (Normodyne Iv Push) 20 mg 1X ONCE IVP Last administered on 01/12at 14:49; Start 01/12/18 at 14:30; Stop 01/12/18 at 14:33; Status DC Oxycodone/ Acetaminophen (Percocet 10/325) 1 tab PRN Q6HRS PRN PO SEVERE PAIN Last administered on 01/13/18at 03:51; Start 01/12/18 at 20:45; Stop 01/13/18 at 09:33; Status DC Zolpidem Tartrate (Ambien) 5 mg PRN QHS PRN PO INSOMNIA Last administered on at 21:56; Start 01/12/18 at 20:45 Acetaminophen (Tylenol) 650 mg PRN Q6HRS PRN PO MILD PAIN; Start 01/12/18 at 20:45 Ondansetron HCl (Zofran Odt) 4 mg 1X ONCE PO ; Start 01/12/18 at 21:15; Stop 01/12/18 at 21:16; Status DC Ondansetron HCl (Zofran) 4 mg PRN Q6HRS PRN IV NAUSEA/VOMITING; Start at 22:00 Morphine Sulfate (Morphine Sulfate) 2 mg PRN Q4HRS PRN IV PAIN; Start at 22:00 Senna/Docusate Sodium (Senna Plus) 1 tab BID PO Last administered on 08:38; Start 01/12/18 at 23:00 Heparin Sodium (Porcine) (Heparin Sodium) 5,000 unit Q8HRS SQ Last administered on 01/14/18at 06:04; Start 01/12/18 at 22:00 Aspirin (Ecotrin) 81 mg DAILY PO Last administered on 01/14/18 08:38; Start 01/13/18 at 09:00 Atorvastatin Calcium (Lipitor) 20 mg HS PO Last administered on 01/13/18 21: 55; Start 01/12/18 at 23:00 Clopidogrel Bisulfate (Plavix) 75 mg DAILY PO Last administered on 01/14/18 08:38; Start 01/13/18 at 09:00 Ferrous Sulfate (Feosol) 325 mg DAILY PO Last administered on 01/14/18 08:38 ; Start 01/13/18 at 09:00 Furosemide (Lasix) 80 mg DAILY PO ; Start 01/13/18 at 09:00; Stop 01/13/18 at 09:00; Status DC Glimepiride (Amaryl) 2 mg DAILY PO Last administered on 01/14/18 08:38; Start 01/13/18 at 09:00 Losartan Potassium (Cozaar) 50 mg DAILY PO Last administered on 01/13/18 08: 50; Start 01/13/18 at 09:00 Metoprolol Tartrate (Lopressor) 25 mg BID PO Last administered on 01/13/18at 21 :56; Start 01/12/18 at 23:00 Nitroglycerin (Nitrostat) 0.4 mg PRN Q5MIN PRN SL CHEST PAIN; Start 01/12/18 at 22:00 Potassium Chloride (Klor-Con) 10 meq BID PO Last administered on 01/14/18 08: 38; Start 01/12/18 at 23:00 Non-Formulary Medication (Albuterol Sulfate (Albuterol Sulfate Conc Neb Soln)) 5 mg PRN PRN NEB WHEEZING; Start 01/12/18 at 22:00; Stop 01/12/18 at 22:17; Status DC Insulin Human Lispro (HumaLOG) 10 units TIDWMEALS SQ Last administered on 01/13at 13:37; Start 01/13/18 at 08:00; Stop 01/13/18 at 18:09; Status DC Insulin Glargine (Lantus) 15 units QHS SQ Last administered on 01/13/18at 22:03 ; Start 01/12/18 at 23:00 Pantoprazole Sodium (Protonix) 40 mg DAILYAC PO Last administered on at 08:38; Start 01/13/18 at 07:30 Insulin Human Lispro (HumaLOG) 0-5 UNITS TIDWMEALS SQ ; Start 01/13/18 at 08:00 ; Stop 01/13/18 at 08:11; Status DC Dextrose (Dextrose 50%-Water Syringe) 12.5 gm PRN Q15MIN PRN IV SEE COMMENTS; Start 01/12/18 at 22:00 Albuterol Sulfate (Ventolin Neb Soln) 2.5 mg PRN Q6HRS PRN NEB SHORTNESS OF BREATH; Start 01/12/18 at 22:30 Furosemide (Lasix) 20 mg [id number] IVP Last administered on 01/14/18at 08:37; Start 01/13/18 at 09:00 Enalaprilat (Vasotec Inj) 1.25 mg PRN Q6HRS PRN IVP HYPERTENSION, SEE COMMENTS ; Start 01/13/18 at 08:15 Oxycodone/ Acetaminophen (Percocet 10/325) 2 tab PRN Q6HRS PRN PO SEVERE PAIN Last administered on 01/14/18at 09:24; Start 01/13/18 at 09:45 Insulin Human Lispro (HumaLOG) 7 units TIDWMEALS SQ Last administered on at 08:48; Start 01/14/18 at 08:00 Active Scripts Active Novolog Flexpen (Insulin Aspart) 100 Unit/1 Ml Insuln.pen 10 Unit SQ TID 30 Days Levemir (Insulin Detemir) 100 Unit/1 Ml Vial 15 Unit SQ TID 30 Days [Pantoprazole] 40 MG Tablet.dr 40 Mg PO DAILYAC 30 Days Amaryl (Glimepiride) 2 Mg Tablet 2 Mg PO DAILY 30 Days Reported Furosemide 80 Mg Tablet 80 Mg PO DAILY Albuterol Sulfate Conc Neb Soln (Albuterol Sulfate) 2.5 Mg/0.5 Ml Vial.neb 5 Mg NEB PRN PRN Losartan Potassium 50 Mg Tablet 50 Mg PO DAILY Metoprolol Tartrate 25 Mg Tablet 1 Tab PO BID Ferrous Sulfate 325 Mg Tablet 1 Tab PO DAILY NITROGLYCERIN SubLingual (Nitroglycerin) 0.4 Mg Tab.subl 0.4 Mg SL PRN Q5MIN PRN Atorvastatin Calcium 20 Mg Tablet 20 Mg PO HS Potassium Chloride 10 Meq Capsule.er 10 Meq PO BID Aspir 81 (Aspirin) 81 Mg Tablet.dr 1 Tab PO DAILY Clopidogrel (Clopidogrel Bisulfate) 75 Mg Tablet 1 Tab PO DAILY Vitals/I & O Vital Sign - Last 24 Hours 01/13/18 01/13/18 01/13/18 01/13/18 11:00 11:05 12:05 15:00 Temp 98.2 97.5 98.2 97.5 Pulse 60 59 Resp 18 20 18 22 B/P (MAP) 132/72 (92) 136/58 (84) Pulse Ox 99 93 O2 Delivery Nasal Cannula Nasal Cannula Nasal Cannula O2 Flow Rate 2.0 01/13/18 01/13/18 01/13/18 01/13/18 18:25 19:00 20:00 21:56 Temp 99.0 99.0 Pulse 60 60 Resp 18 22 B/P (MAP) 149/53 (85) 149/53 Pulse Ox 93 98 O2 Delivery Nasal Cannula Nasal Cannula Nasal Cannula O2 Flow Rate 2.0 2.0 01/13/18 01/14/18 01/14/18 01/14/18 23:00 03:00 03:05 04:05 Temp 98.6 97.5 98.6 97.5 Pulse 59 60 Resp 22 22 B/P (MAP) 143/57 (85) 143/61 (88) Pulse Ox 100 99 O2 Delivery Nasal Cannula Nasal Cannula Nasal Cannula Nasal Cannula O2 Flow Rate 2.0 2.0 2.0 01/14/18 01/14/18 07:00 09:24 Temp 98.5 98.5 Pulse 60 Resp 18 20 B/P (MAP) 129/29 (62) Pulse Ox 98 98 O2 Delivery Nasal Cannula Nasal Cannula O2 Flow Rate 1.5 1.5 Intake and Output 01/13/18 01/13/18 01/14/18 15:00 23:00 07:00 Intake Total 1550 ml 1000 ml Balance 1550 ml 1000 ml JHON ZAPIEN MD Jan 14, 2018 10:36
[2018-01-14 11:00] VITALS: BP 155/48
[2018-01-14] MEDS: METOPROLOL TART IMMED RELEASE 25 MG TABLET. PO SCH ×2 (13:10→20:33)
[2018-01-14] MEDS: LOSARTAN POTASSIUM 50 MG TABLET. PO SCH (13:11)
[2018-01-14 15:00] VITALS: BP 137/50
[2018-01-14 19:00] VITALS: BP 182/91
[2018-01-14] MEDS: ZOLPIDEM 5 MG TABLET. PO PRN (20:32)
[2018-01-14] MEDS: ATORVASTATIN CALCIUM 20 MG TABLET PO SCH (20:32)
[2018-01-14] MEDS: INSULIN GLARGINE 300 UNITS/3 ML INSULN.PEN. SQ SCH (20:37)
[2018-01-14 23:00] VITALS: BP 154/74
[2018-01-15 03:00] VITALS: BP 156/55
[2018-01-15] MEDS: oxyCODONE/APAP 10/325 1 TAB TABLET PO PRN ×3 (05:40→18:01)
[2018-01-15] MEDS: HEPARIN for SUB-Q USE 5,000 UNIT/ML VIAL. SQ SCH ×3 (05:43→20:39)
[2018-01-15 07:00] VITALS: BP 133/45
[2018-01-15] MEDS: PANTOPRAZOLE 40 MG TABLET.DR. PO SCH (08:06)
[2018-01-15] MEDS: ASPIRIN ENTERIC COATED 81 MG TABLET.DR. PO SCH (08:06)
[2018-01-15] MEDS: SENNOSIDES/DOCUSATE 8.6/50MG TABLET. PO SCH ×2 (08:06→20:36)
[2018-01-15] MEDS: METOPROLOL TART IMMED RELEASE 25 MG TABLET. PO SCH ×2 (08:07→20:37)
[2018-01-15] MEDS: CLOPIDOGREL BISULFATE 75 MG TABLET PO SCH (08:07)
[2018-01-15] MEDS: POTASSIUM CHLORIDE 10 MEQ TABLET.ER. PO SCH ×2 (08:07→20:37)
[2018-01-15] MEDS: GLIMEPIRIDE 2 MG TABLET. PO SCH (08:07)
[2018-01-15] MEDS: LOSARTAN POTASSIUM 50 MG TABLET. PO SCH (08:08)
[2018-01-15] MEDS: FERROUS SULFATE 325 MG TABLET. PO SCH (08:08)
[2018-01-15] MEDS: FUROSEMIDE 20 MG/2 ML VIAL. IVP SCH ×2 (08:08→14:18)
[2018-01-15] MEDS: INSULIN LISPRO 300 UNITS/3 ML INSULN.PEN. SQ SCH ×3 (08:15→17:23)
--- NOTE | 2018-01-15 10:45 | PDOC ---
PROGRESS NOTES Chief Complaint Chief Complaint CP - EKG , trops reassuring acute on chronic combined CHF, morbid obesity, BMI 44 ANEMIA weakness and debility Dm2, insulin dependent HX severe hypercapnic resp failure needing BIPAP narcotic dependence CONTINUE IV DIURESIS TODAY, HOME TOMORROW IF STABLE History of Present Illness History of Present Illness SHe describes the chest pain as tightness, midsternal, no diaphoresis but could not catch her breath On O2 when necessary at home, still has no BiPAP or CPAP at night at home Labs an EKG reassuring Plan: Blood pressure high, Vasotec when necessary Home meds I have reconciled including 2 tablets of Percocet 10-history of chronic back pain continue iv lasix Vitals Vitals Vital Signs Date Time Temp Pulse Resp B/P (MAP) Pulse Ox O2 Delivery O2 Flow Rate FiO2 01/15/18 08:15 Nasal Cannula 2.0 01/15/18 08:08 60 133/45 01/15/18 08:06 100 01/15/18 07:00 98.0 18 98.0 Physical Exam General: Alert, Oriented X3, Cooperative, No acute distress, mild distress Heart: Regular rate, Normal S1, Normal S2 Lungs: Clear, Crackles Abdomen: Normal bowel sounds, Soft, No tenderness, No hepatosplenomegaly, No masses Extremities: No clubbing, No cyanosis, No edema, Normal pulses, No tenderness/ swelling Skin: No rashes, No breakdown, No significant lesion Labs LABS Laboratory Tests Test 01/14/18 12:30 01/14/18 17:24 01/14/18 20:30 01/15/18 07:48 Glucose (Fingerstick) 103 mg/dL (70-99) 141 mg/dL (70-99) 141 mg/dL (70-99) 152 mg/dL (70-99) Assessment and Plan Assessmemt and Plan Problems Medical Problems: (1) History of coronary artery disease Status: Acute Comment Review of Relevant I have reviewed the following items nolan (where applicable) has been applied. Labs Laboratory Tests Test 01/13/18 11:36 01/13/18 16:21 01/13/18 17:25 01/13/18 21:43 Glucose (Fingerstick) 98 mg/dL (70-99) 59 mg/dL (70-99) 65 mg/dL (70-99) 204 mg/dL (70-99) Test 01/14/18 07:54 01/14/18 08:05 01/14/18 12:30 01/14/18 17:24 Glucose (Fingerstick) 145 mg/dL (70-99) 103 mg/dL (70-99) 141 mg/dL (70-99) Sodium Level 142 mmol/L (136-145) Potassium Level 4.5 mmol/L (3.5-5.1) Chloride Level 104 mmol/L (98-107) Carbon Dioxide Level 35 mmol/L (21-32) Anion Gap 3 (6-14) Blood Urea Nitrogen 14 mg/dL (7-20) Creatinine 0.9 mg/dL (0.6-1.0) Estimated GFR (Cockcroft-Gault) 76.5 Glucose Level 143 mg/dL (70-99) Calcium Level 9.0 mg/dL (8.5-10.1) Test 01/14/18 20:30 01/15/18 07:48 Glucose (Fingerstick) 141 mg/dL (70-99) 152 mg/dL (70-99) Laboratory Tests Test 01/14/18 12:30 01/14/18 17:24 01/14/18 20:30 01/15/18 07:48 Glucose (Fingerstick) 103 mg/dL (70-99) 141 mg/dL (70-99) 141 mg/dL (70-99) 152 mg/dL (70-99) Medications Current Medications Aspirin (Children'S Aspirin) 324 mg 1X ONCE PO Last administered on at 15:05; Start 01/12/18 at 14:30; Stop 01/12/18 at 14:33; Status DC Morphine Sulfate (Morphine Sulfate) 4 mg 1X ONCE IV Last administered on 01/12at 15:36; Start 01/12/18 at 14:30; Stop 01/12/18 at 14:33; Status DC Nitroglycerin (Nitro-Bid Oint) 1 inch 1X ONCE TP Last administered on at 14:30; Start 01/12/18 at 14:30; Stop 01/12/18 at 14:33; Status DC Ondansetron HCl (Zofran) 4 mg 1X ONCE IV Last administered on 01/12/18at 14:48 ; Start 01/12/18 at 14:30; Stop 01/12/18 at 14:33; Status DC Labetalol HCl (Normodyne Iv Push) 20 mg 1X ONCE IVP Last administered on 01/12at 14:49; Start 01/12/18 at 14:30; Stop 01/12/18 at 14:33; Status DC Oxycodone/ Acetaminophen (Percocet 10/325) 1 tab PRN Q6HRS PRN PO SEVERE PAIN Last administered on 01/13/18at 03:51; Start 01/12/18 at 20:45; Stop 01/13/18 at 09:33; Status DC Zolpidem Tartrate (Ambien) 5 mg PRN QHS PRN PO INSOMNIA Last administered on at 20:32; Start 01/12/18 at 20:45 Acetaminophen (Tylenol) 650 mg PRN Q6HRS PRN PO MILD PAIN; Start 01/12/18 at 20:45 Ondansetron HCl (Zofran Odt) 4 mg 1X ONCE PO ; Start 01/12/18 at 21:15; Stop 01/12/18 at 21:16; Status DC Ondansetron HCl (Zofran) 4 mg PRN Q6HRS PRN IV NAUSEA/VOMITING; Start at 22:00 Morphine Sulfate (Morphine Sulfate) 2 mg PRN Q4HRS PRN IV PAIN; Start at 22:00 Senna/Docusate Sodium (Senna Plus) 1 tab BID PO Last administered on at 08:06; Start 01/12/18 at 23:00 Heparin Sodium (Porcine) (Heparin Sodium) 5,000 unit Q8HRS SQ Last administered on 01/15/18at 05:43; Start 01/12/18 at 22:00 Aspirin (Ecotrin) 81 mg DAILY PO Last administered on 01/15/18 08:06; Start 01/13/18 at 09:00 Atorvastatin Calcium (Lipitor) 20 mg HS PO Last administered on 01/14/18at 20: 32; Start 01/12/18 at 23:00 Clopidogrel Bisulfate (Plavix) 75 mg DAILY PO Last administered on 01/15/18at 08:07; Start 01/13/18 at 09:00 Ferrous Sulfate (Feosol) 325 mg DAILY PO Last administered on 01/15/18 08:08 ; Start 01/13/18 at 09:00 Furosemide (Lasix) 80 mg DAILY PO ; Start 01/13/18 at 09:00; Stop 01/13/18 at 09:00; Status DC Glimepiride (Amaryl) 2 mg DAILY PO Last administered on 01/15/18 08:07; Start 01/13/18 at 09:00 Losartan Potassium (Cozaar) 50 mg DAILY PO Last administered on 01/15/18at 08: 08; Start 01/13/18 at 09:00 Metoprolol Tartrate (Lopressor) 25 mg BID PO Last administered on 01/15/18 08 :07; Start 01/12/18 at 23:00 Nitroglycerin (Nitrostat) 0.4 mg PRN Q5MIN PRN SL CHEST PAIN; Start 01/12/18 at 22:00 Potassium Chloride (Klor-Con) 10 meq BID PO Last administered on 01/15/18at 08: 07; Start 01/12/18 at 23:00 Non-Formulary Medication (Albuterol Sulfate (Albuterol Sulfate Conc Neb Soln)) 5 mg PRN PRN NEB WHEEZING; Start 01/12/18 at 22:00; Stop 01/12/18 at 22:17; Status DC Insulin Human Lispro (HumaLOG) 10 units TIDWMEALS SQ Last administered on 01/13at 13:37; Start 01/13/18 at 08:00; Stop 01/13/18 at 18:09; Status DC Insulin Glargine (Lantus) 15 units QHS SQ Last administered on 01/14/18at 20:37 ; Start 01/12/18 at 23:00 Pantoprazole Sodium (Protonix) 40 mg DAILYAC PO Last administered on at 08:06; Start 01/13/18 at 07:30 Insulin Human Lispro (HumaLOG) 0-5 UNITS TIDWMEALS SQ ; Start 01/13/18 at 08:00 ; Stop 01/13/18 at 08:11; Status DC Dextrose (Dextrose 50%-Water Syringe) 12.5 gm PRN Q15MIN PRN IV SEE COMMENTS; Start 01/12/18 at 22:00 Albuterol Sulfate (Ventolin Neb Soln) 2.5 mg PRN Q6HRS PRN NEB SHORTNESS OF BREATH; Start 01/12/18 at 22:30 Furosemide (Lasix) 20 mg [id number] IVP Last administered on 01/15/18at 08:08; Start 01/13/18 at 09:00 Enalaprilat (Vasotec Inj) 1.25 mg PRN Q6HRS PRN IVP HYPERTENSION, SEE COMMENTS ; Start 01/13/18 at 08:15 Oxycodone/ Acetaminophen (Percocet 10/325) 2 tab PRN Q6HRS PRN PO SEVERE PAIN Last administered on 01/15/18at 05:40; Start 01/13/18 at 09:45 Insulin Human Lispro (HumaLOG) 7 units TIDWMEALS SQ Last administered on at 08:15; Start 01/14/18 at 08:00 Active Scripts Active Novolog Flexpen (Insulin Aspart) 100 Unit/1 Ml Insuln.pen 10 Unit SQ TID 30 Days Levemir (Insulin Detemir) 100 Unit/1 Ml Vial 15 Unit SQ TID 30 Days [Pantoprazole] 40 MG Tablet. 40 Mg PO DAILYAC 30 Days Amaryl (Glimepiride) 2 Mg Tablet 2 Mg PO DAILY 30 Days Reported Furosemide 80 Mg Tablet 80 Mg PO DAILY Albuterol Sulfate Conc Neb Soln (Albuterol Sulfate) 2.5 Mg/0.5 Ml Vial.neb 5 Mg NEB PRN PRN Losartan Potassium 50 Mg Tablet 50 Mg PO DAILY Metoprolol Tartrate 25 Mg Tablet 1 Tab PO BID Ferrous Sulfate 325 Mg Tablet 1 Tab PO DAILY NITROGLYCERIN SubLingual (Nitroglycerin) 0.4 Mg Tab.subl 0.4 Mg SL PRN Q5MIN PRN Atorvastatin Calcium 20 Mg Tablet 20 Mg PO HS Potassium Chloride 10 Meq Capsule.er 10 Meq PO BID Aspir 81 (Aspirin) 81 Mg Tablet. 1 Tab PO DAILY Clopidogrel (Clopidogrel Bisulfate) 75 Mg Tablet 1 Tab PO DAILY Vitals/I & O Vital Sign - Last 24 Hours 01/14/18 01/14/18 01/14/18 01/14/18 11:00 13:10 13:11 15:00 Temp 98.3 98.3 98.3 98.3 Pulse 63 63 63 60 Resp 18 18 B/P (MAP) 155/48 (83) 155/48 155/48 137/50 (79) Pulse Ox 96 97 O2 Delivery Nasal Cannula Nasal Cannula O2 Flow Rate 1.5 1.5 01/14/18 01/14/18 01/14/18 01/14/18 15:51 16:51 19:00 19:40 Temp 98.4 98.4 Pulse 61 Resp 20 18 20 B/P (MAP) 182/91 (121) Pulse Ox 97 97 O2 Delivery Nasal Cannula Nasal Cannula Nasal Cannula O2 Flow Rate 1.5 1.5 1.5 01/14/18 01/14/18 01/14/18 01/15/18 20:33 23:00 23:46 03:00 Temp 98.3 98.1 98.3 98.1 Pulse 60 61 60 Resp 20 18 B/P (MAP) 182/91 154/74 (100) 156/55 (88) Pulse Ox 95 100 O2 Delivery Nasal Cannula Nasal Cannula Nasal Cannula O2 Flow Rate 1.5 2.0 1.5 01/15/18 01/15/18 01/15/18 01/15/18 05:40 07:00 08:06 08:07 Temp 98.0 98.0 Pulse 60 60 Resp 18 B/P (MAP) 133/45 (74) 133/45 Pulse Ox 97 100 O2 Delivery Nasal Cannula Nasal Cannula Nasal Cannula O2 Flow Rate 2.0 2.0 01/15/18 01/15/18 08:08 08:15 Pulse 60 B/P (MAP) 133/45 O2 Delivery Nasal Cannula O2 Flow Rate 2.0 Intake and Output 01/14/18 01/14/18 01/15/18 15:00 23:00 07:00 Intake Total 360 ml 930 ml 680 ml Output Total 1 ml Balance 360 ml 930 ml 679 ml JHON ZAPIEN MD Jan 15, 2018 10:45
[2018-01-15 11:00] VITALS: BP 122/31
--- NOTE | 2018-01-15 12:34 | PDOC ---
PROGRESS NOTES Subjective Subjective patient has had less chest pain throughout the evening and morning, and states the pain is very minimal at the moment she has had not shortness of breath Objective Objective Vital Signs Date Time Temp Pulse Resp B/P (MAP) Pulse Ox O2 Delivery O2 Flow Rate FiO2 01/15/18 11:58 Room Air 01/15/18 08:15 2.0 01/15/18 08:08 60 133/45 01/15/18 08:06 100 01/15/18 07:00 98.0 18 98.0 Intake and Output 01/15/18 07:00 Intake Total 1970 ml Output Total 1 ml Balance 1969 ml Intake Oral 1970 ml Output Urine Total 1 ml # Voids 4 Physical Exam Heart: Regular rate, Normal S1, Normal S2, No murmurs Extremities: No clubbing, No cyanosis, No edema, Normal pulses General: Alert, Oriented X3, Cooperative, No acute distress Lungs: Clear to auscultation, Normal air movement MUSCULOSKELETAL: No swelling Skin: No rashes, No breakdown Assessment Assessment Problems Medical Problems: (1) History of coronary artery disease Status: Acute Plan Plan of Care no cardiac concerns at this time will sign off of patient treatment at this time thank you for letting me take part in the care of this patient Comment Review of Relevant I have reviewed the following items nolan (where applicable) has been applied. Labs Laboratory Tests Test 01/13/18 16:21 01/13/18 17:25 01/13/18 21:43 01/14/18 07:54 Glucose (Fingerstick) 59 mg/dL (70-99) 65 mg/dL (70-99) 204 mg/dL (70-99) 145 mg/dL (70-99) Test 01/14/18 08:05 01/14/18 12:30 01/14/18 17:24 01/14/18 20:30 Sodium Level 142 mmol/L (136-145) Potassium Level 4.5 mmol/L (3.5-5.1) Chloride Level 104 mmol/L (98-107) Carbon Dioxide Level 35 mmol/L (21-32) Anion Gap 3 (6-14) Blood Urea Nitrogen 14 mg/dL (7-20) Creatinine 0.9 mg/dL (0.6-1.0) Estimated GFR (Cockcroft-Gault) 76.5 Glucose Level 143 mg/dL (70-99) Calcium Level 9.0 mg/dL (8.5-10.1) Glucose (Fingerstick) 103 mg/dL (70-99) 141 mg/dL (70-99) 141 mg/dL (70-99) Test 01/15/18 07:48 01/15/18 11:28 Glucose (Fingerstick) 152 mg/dL (70-99) 166 mg/dL (70-99) Laboratory Tests Test 01/14/18 17:24 01/14/18 20:30 01/15/18 07:48 01/15/18 11:28 Glucose (Fingerstick) 141 mg/dL (70-99) 141 mg/dL (70-99) 152 mg/dL (70-99) 166 mg/dL (70-99) Medications Current Medications Aspirin (Children'S Aspirin) 324 mg 1X ONCE PO Last administered on at 15:05; Start 01/12/18 at 14:30; Stop 01/12/18 at 14:33; Status DC Morphine Sulfate (Morphine Sulfate) 4 mg 1X ONCE IV Last administered on 01/12at 15:36; Start 01/12/18 at 14:30; Stop 01/12/18 at 14:33; Status DC Nitroglycerin (Nitro-Bid Oint) 1 inch 1X ONCE TP Last administered on at 14:30; Start 01/12/18 at 14:30; Stop 01/12/18 at 14:33; Status DC Ondansetron HCl (Zofran) 4 mg 1X ONCE IV Last administered on 01/12/18at 14:48 ; Start 01/12/18 at 14:30; Stop 01/12/18 at 14:33; Status DC Labetalol HCl (Normodyne Iv Push) 20 mg 1X ONCE IVP Last administered on 01/12at 14:49; Start 01/12/18 at 14:30; Stop 01/12/18 at 14:33; Status DC Oxycodone/ Acetaminophen (Percocet 10/325) 1 tab PRN Q6HRS PRN PO SEVERE PAIN Last administered on 01/13/18at 03:51; Start 01/12/18 at 20:45; Stop 01/13/18 at 09:33; Status DC Zolpidem Tartrate (Ambien) 5 mg PRN QHS PRN PO INSOMNIA Last administered on 20:32; Start 01/12/18 at 20:45 Acetaminophen (Tylenol) 650 mg PRN Q6HRS PRN PO MILD PAIN; Start 01/12/18 at 20:45 Ondansetron HCl (Zofran Odt) 4 mg 1X ONCE PO ; Start 01/12/18 at 21:15; Stop 01/12/18 at 21:16; Status DC Ondansetron HCl (Zofran) 4 mg PRN Q6HRS PRN IV NAUSEA/VOMITING; Start at 22:00 Morphine Sulfate (Morphine Sulfate) 2 mg PRN Q4HRS PRN IV PAIN; Start at 22:00 Senna/Docusate Sodium (Senna Plus) 1 tab BID PO Last administered on 08:06; Start 01/12/18 at 23:00 Heparin Sodium (Porcine) (Heparin Sodium) 5,000 unit Q8HRS SQ Last administered on 01/15/18at 05:43; Start 01/12/18 at 22:00 Aspirin (Ecotrin) 81 mg DAILY PO Last administered on 01/15/18 08:06; Start 01/13/18 at 09:00 Atorvastatin Calcium (Lipitor) 20 mg HS PO Last administered on 01/14/18at 20: 32; Start 01/12/18 at 23:00 Clopidogrel Bisulfate (Plavix) 75 mg DAILY PO Last administered on 01/15/18 08:07; Start 01/13/18 at 09:00 Ferrous Sulfate (Feosol) 325 mg DAILY PO Last administered on 01/15/18at 08:08 ; Start 01/13/18 at 09:00 Furosemide (Lasix) 80 mg DAILY PO ; Start 01/13/18 at 09:00; Stop 01/13/18 at 09:00; Status DC Glimepiride (Amaryl) 2 mg DAILY PO Last administered on 01/15/18at 08:07; Start 01/13/18 at 09:00 Losartan Potassium (Cozaar) 50 mg DAILY PO Last administered on 01/15/18at 08: 08; Start 01/13/18 at 09:00 Metoprolol Tartrate (Lopressor) 25 mg BID PO Last administered on 01/15/18at 08 :07; Start 01/12/18 at 23:00 Nitroglycerin (Nitrostat) 0.4 mg PRN Q5MIN PRN SL CHEST PAIN; Start 01/12/18 at 22:00 Potassium Chloride (Klor-Con) 10 meq BID PO Last administered on 01/15/18at 08: 07; Start 01/12/18 at 23:00 Non-Formulary Medication (Albuterol Sulfate (Albuterol Sulfate Conc Neb Soln)) 5 mg PRN PRN NEB WHEEZING; Start 01/12/18 at 22:00; Stop 01/12/18 at 22:17; Status DC Insulin Human Lispro (HumaLOG) 10 units TIDWMEALS SQ Last administered on 01/13at 13:37; Start 01/13/18 at 08:00; Stop 01/13/18 at 18:09; Status DC Insulin Glargine (Lantus) 15 units QHS SQ Last administered on 01/14/18at 20:37 ; Start 01/12/18 at 23:00 Pantoprazole Sodium (Protonix) 40 mg DAILYAC PO Last administered on at 08:06; Start 01/13/18 at 07:30 Insulin Human Lispro (HumaLOG) 0-5 UNITS TIDWMEALS SQ ; Start 01/13/18 at 08:00 ; Stop 01/13/18 at 08:11; Status DC Dextrose (Dextrose 50%-Water Syringe) 12.5 gm PRN Q15MIN PRN IV SEE COMMENTS; Start 01/12/18 at 22:00 Albuterol Sulfate (Ventolin Neb Soln) 2.5 mg PRN Q6HRS PRN NEB SHORTNESS OF BREATH; Start 01/12/18 at 22:30 Furosemide (Lasix) 20 mg [id number] IVP Last administered on 01/15/18at 08:08; Start 01/13/18 at 09:00 Enalaprilat (Vasotec Inj) 1.25 mg PRN Q6HRS PRN IVP HYPERTENSION, SEE COMMENTS ; Start 01/13/18 at 08:15 Oxycodone/ Acetaminophen (Percocet 10/325) 2 tab PRN Q6HRS PRN PO SEVERE PAIN Last administered on 01/15/18at 11:58; Start 01/13/18 at 09:45 Insulin Human Lispro (HumaLOG) 7 units TIDWMEALS SQ Last administered on at 12:00; Start 01/14/18 at 08:00 Active Scripts Active Novolog Flexpen (Insulin Aspart) 100 Unit/1 Ml Insuln.pen 10 Unit SQ TID 30 Days Levemir (Insulin Detemir) 100 Unit/1 Ml Vial 15 Unit SQ TID 30 Days [Pantoprazole] 40 MG Tablet.dr 40 Mg PO DAILYAC 30 Days Amaryl (Glimepiride) 2 Mg Tablet 2 Mg PO DAILY 30 Days Reported Furosemide 80 Mg Tablet 80 Mg PO DAILY Albuterol Sulfate Conc Neb Soln (Albuterol Sulfate) 2.5 Mg/0.5 Ml Vial.neb 5 Mg NEB PRN PRN Losartan Potassium 50 Mg Tablet 50 Mg PO DAILY Metoprolol Tartrate 25 Mg Tablet 1 Tab PO BID Ferrous Sulfate 325 Mg Tablet 1 Tab PO DAILY NITROGLYCERIN SubLingual (Nitroglycerin) 0.4 Mg Tab.subl 0.4 Mg SL PRN Q5MIN PRN Atorvastatin Calcium 20 Mg Tablet 20 Mg PO HS Potassium Chloride 10 Meq Capsule.er 10 Meq PO BID Aspir 81 (Aspirin) 81 Mg Tablet.dr 1 Tab PO DAILY Clopidogrel (Clopidogrel Bisulfate) 75 Mg Tablet 1 Tab PO DAILY Vitals/I & O Vital Sign - Last 24 Hours 01/14/18 01/14/18 01/14/18 01/14/18 13:10 13:11 15:00 15:51 Temp 98.3 98.3 Pulse 63 63 60 Resp 18 20 B/P (MAP) 155/48 155/48 137/50 (79) Pulse Ox 97 97 O2 Delivery Nasal Cannula Nasal Cannula O2 Flow Rate 1.5 1.5 01/14/18 01/14/18 01/14/18 01/14/18 16:51 19:00 19:40 20:33 Temp 98.4 98.4 Pulse 61 60 Resp 18 20 B/P (MAP) 182/91 (121) 182/91 Pulse Ox 97 O2 Delivery Nasal Cannula Nasal Cannula O2 Flow Rate 1.5 1.5 01/14/18 01/14/18 01/15/18 01/15/18 23:00 23:46 03:00 05:40 Temp 98.3 98.1 98.3 98.1 Pulse 61 60 Resp 20 18 B/P (MAP) 154/74 (100) 156/55 (88) Pulse Ox 95 100 O2 Delivery Nasal Cannula Nasal Cannula Nasal Cannula Nasal Cannula O2 Flow Rate 1.5 2.0 1.5 2.0 01/15/18 01/15/18 01/15/18 01/15/18 07:00 08:06 08:07 08:08 Temp 98.0 98.0 Pulse 60 60 60 Resp 18 B/P (MAP) 133/45 (74) 133/45 133/45 Pulse Ox 97 100 O2 Delivery Nasal Cannula Nasal Cannula O2 Flow Rate 2.0 01/15/18 01/15/18 08:15 11:58 O2 Delivery Nasal Cannula Room Air O2 Flow Rate 2.0 Intake and Output 01/14/18 01/14/18 01/15/18 15:00 23:00 07:00 Intake Total 360 ml 930 ml 680 ml Output Total 1 ml Balance 360 ml 930 ml 679 ml LIZBET LINDSAY MD Jan 15, 2018 12:34
[2018-01-15 15:00] VITALS: BP 173/40
[2018-01-15 19:00] VITALS: BP 163/44
[2018-01-15] MEDS: ATORVASTATIN CALCIUM 20 MG TABLET PO SCH (20:36)
[2018-01-15] MEDS: INSULIN GLARGINE 300 UNITS/3 ML INSULN.PEN. SQ SCH (20:40)
[2018-01-15 23:00] VITALS: BP 133/41
[2018-01-16] MEDS: oxyCODONE/APAP 10/325 1 TAB TABLET PO PRN ×3 (00:06→12:16)
[2018-01-16 02:56] VITALS: BP 154/46
[2018-01-16] MEDS: HEPARIN for SUB-Q USE 5,000 UNIT/ML VIAL. SQ SCH ×2 (06:14→14:00)
[2018-01-16 07:00] VITALS: BP 140/36
[2018-01-16] MEDS: POTASSIUM CHLORIDE 10 MEQ TABLET.ER. PO SCH (08:08)
[2018-01-16] MEDS: ASPIRIN ENTERIC COATED 81 MG TABLET.DR. PO SCH (08:08)
[2018-01-16] MEDS: CLOPIDOGREL BISULFATE 75 MG TABLET PO SCH (08:08)
[2018-01-16] MEDS: SENNOSIDES/DOCUSATE 8.6/50MG TABLET. PO SCH (08:08)
[2018-01-16] MEDS: METOPROLOL TART IMMED RELEASE 25 MG TABLET. PO SCH (08:08)
[2018-01-16] MEDS: FERROUS SULFATE 325 MG TABLET. PO SCH (08:08)
[2018-01-16] MEDS: FUROSEMIDE 20 MG/2 ML VIAL. IVP SCH ×2 (08:09→14:56)
[2018-01-16] MEDS: PANTOPRAZOLE 40 MG TABLET.DR. PO SCH (08:09)
[2018-01-16] MEDS: GLIMEPIRIDE 2 MG TABLET. PO SCH (08:09)
[2018-01-16] MEDS: LOSARTAN POTASSIUM 50 MG TABLET. PO SCH (08:09)
[2018-01-16] MEDS: INSULIN LISPRO 300 UNITS/3 ML INSULN.PEN. SQ SCH ×2 (08:15→12:18)
[2018-01-16 09:27] LABS: BASO % 0 % (0-3); EOS # 0.1 x10^3/uL (0.0-0.7); EOS % 2 % (0-3); HEMOGLOBIN 10.7 g/dL (12.0-15.5); LYMPH # 1.1 x10^3/uL (1.0-4.8); LYMPH % 18 % (24-48); MEAN CORPUSCULAR HEMOGLOBIN 27 pg (25-35); MEAN CORPUSCULAR HGB CONC 31 g/dL (31-37); MEAN CORPUSCULAR VOLUME 87 fL (79-100); MONO # 0.5 x10^3/uL (0.0-1.1); MONO % 8 % (0-9); NEUT # 4.4 x10^3uL (1.8-7.7); NEUT % 72 % (31-73); PLATELET COUNT 246 x10^3/uL (140-400); RED BLOOD COUNT 3.91 x10^6/uL (3.50-5.40); RED CELL DISTRIBUTION WIDTH 16.7 % (11.5-14.5)
[2018-01-16 09:43] LABS: CALCIUM 9.1 mg/dL (8.5-10.1); CREATININE 0.9 mg/dL (0.6-1.0); GFR 76.5; POTASSIUM 4.7 mmol/L (3.5-5.1)
[2018-01-16 11:00] VITALS: BP 131/39
--- NOTE | 2018-01-16 12:59 | PDOC3 ---
Discharge Summary [facility] Date of Admission: Jan 14, 2018 Discharge Date: Jan 16, 2018 Admitting Diagnosis chest pain Final Diagnosis Problems Medical Problems: (1) History of coronary artery disease Status: Acute Brief Hospital Course Ms. Laguna is a 62 old F with htn hld who presented with chest pain and she was trended out and there were negative troponins, she had further workup by cardiology who eventually signed off sighting that ti was an unlikely source of her pain. the patient had pain on and off and eventaully given her work up was negative id iscussed more musculoskeletal sources of her pain and i also recommended that she f/u with her PCP for further work up that may need esophageal manometry and such. NAD A&ox3 mmm neck w/o nodes s1 s2 rrr no murmurs ctab nc in place soft nttp +bs no c/c/e Patient History: FH: diabetes mellitus G8 BROTHER G8 BROTHER G8 SISTER FH: heart disease 33 FATHER Family history: Angina (situation) Family history: Cardiovascular disease (situation) Family history: Diabetes mellitus (situation) Family history: Hypertension (situation) No Family History of: Family history: Asthma Family history: Autoimmune disease (situation) Family history: Blood disorder (situation) Family history: Breast disease (situation) Family history: Cardiomyopathy (situation) Family history: Crohn's disease (situation) Family history: Depression (situation) Family history: Epilepsy (situation) Family history: Gallbladder disease (situation) Family history: Gastrointestinal disease (situation) Family history: Hemophilia (situation) Family history: Obesity (situation) Family history: Schizophrenia (situation) Family history: Sickle cell trait (situation) Family history: Suicide (situation) Family history: neoplasm - trachea/bronchus/lung (situation) Family history: neoplasm - urinary organ (situation) Family history: neoplasm of skin (situation) Malignant hyperthermia Sleep apnea Unknown CONDITION AT DISCHARGE: Improved, Stable Scheduled Aspirin (Aspir 81), 1 TAB PO DAILY, (Reported) Atorvastatin Calcium (Atorvastatin Calcium), 20 MG PO HS, (Reported) Clopidogrel Bisulfate (Clopidogrel), 1 TAB PO DAILY, (Reported) Ferrous Sulfate (Ferrous Sulfate), 1 TAB PO DAILY, (Reported) Furosemide (Furosemide), 80 MG PO DAILY, (Reported) Glimepiride (Amaryl), 2 MG PO DAILY Insulin Aspart (Novolog Flexpen), 10 UNIT SQ TID Insulin Detemir (Levemir), 15 UNIT SQ TID Losartan Potassium (Losartan Potassium), 50 MG PO DAILY, (Reported) Metoprolol Tartrate (Metoprolol Tartrate), 1 TAB PO BID, (Reported) Potassium Chloride (Potassium Chloride), 10 MEQ PO BID, (Reported) [Pantoprazole], 40 MG PO DAILYAC Scheduled PRN Albuterol Sulfate (Albuterol Sulfate Conc Neb Soln), 5 MG NEB PRN PRN for WHEEZING, (Reported) Nitroglycerin (NITROGLYCERIN SubLingual), 0.4 MG SL PRN Q5MIN PRN for CHEST PAIN , (Reported) RACQUEL COFFEY MD Jan 16, 2018 12:59
== END 2018-01-16 15:33 | disposition home or self-care (01) | DRG 291 ==
LOC: ER 13:25 → 5 NORTH 16:50
PROVIDERS: ADMIT Internal Medicine; ATTEND Internal Medicine
DX: I13.0 Hypertensive heart and chronic kidney disease with heart failure and stage 1 through stage 4 chronic kidney disease, or unspecified chronic kidney disease (principal); I50.43 Acute on chronic combined systolic (congestive) and diastolic (congestive) heart failure; I24.8 Other forms of acute ischemic heart disease; Z68.41 Body mass index [BMI] 40.0-44.9, adult; F11.20 Opioid dependence, uncomplicated; E11.22 Type 2 diabetes mellitus with diabetic chronic kidney disease; E11.42 Type 2 diabetes mellitus with diabetic polyneuropathy; D64.9 Anemia, unspecified; E66.01 Morbid (severe) obesity due to excess calories; E78.5 Hyperlipidemia, unspecified; I07.1 Rheumatic tricuspid insufficiency; G89.29 Other chronic pain; I25.10 Atherosclerotic heart disease of native coronary artery without angina pectoris; N18.9 Chronic kidney disease, unspecified; I27.20 Pulmonary hypertension, unspecified; Z96.659 Presence of unspecified artificial knee joint; J44.9 Chronic obstructive pulmonary disease, unspecified; Z79.4 Long term (current) use of insulin; Z82.49 Family history of ischemic heart disease and other diseases of the circulatory system; Z87.891 Personal history of nicotine dependence; Z83.3 Family history of diabetes mellitus; Z90.710 Acquired absence of both cervix and uterus; I25.2 Old myocardial infarction; Z95.1 Presence of aortocoronary bypass graft; Z95.5 Presence of coronary angioplasty implant and graft; Z99.81 Dependence on supplemental oxygen; Z79.899 Other long term (current) drug therapy; Z90.49 Acquired absence of other specified parts of digestive tract; Z88.8 Allergy status to other drugs, medicaments and biological substances; Z79.82 Long term (current) use of aspirin
CPT/HCPCS: 36415; 71045; 80048; 80053; 82553; 82962; 83690; 83880; 84484; 85025; 85610; 93005; 94640; 94760; 96374; J1644; J1815; J1940; J2270; J2405; J3490; J7613; 97110; 97116; 99285-25

== ENCOUNTER 2018-05-16 18:36 | Inpatient (IN) | payer OTHER ==
[~2018-05-16] VITALS: Ht 162.6 cm; Wt 105.7 kg
[2018-05-16 11:30] VITALS: BP 178/58
[~2018-05-16 18:36] MED LIST changes: +AMLO5TAB10 PO; -AMLO5TAB7 PO; -GABA-586 PO; +GABA300C18 PO; -HYDR-2758 PO; +HYDR-2761 PO; +LOSA-73 PO; +LOSA100T14 PO; -LOSA100T7 PO; -LOSA50TA7 PO; -OXYC-323 PO; -OXYC-328 PO; +OXYC1TAB15 PO; +OXYC1TAB22 PO
[2018-05-16] MEDS ORDERED: fentaNYL PF VIAL 100 MCG/2 ML VIAL IV ONE ×2 (19:00→20:15)
[2018-05-16] MEDS ORDERED: ONDANSETRON PF 4 MG/2 ML VIAL. IV ONE (19:00)
--- NOTE | 2018-05-16 19:23 | RAD ---
Indication:Chest pain TECHNIQUE:Portable AP chest X-ray COMPARISON:03/11/2018 FINDINGS: CABG changes noted. Dual-lead cardiac pacer with its leads projecting over the heart. Heart is moderately enlarged in size. Lungs are clear. No pneumothorax or pleural effusion. Visualized bony thorax within normal limits. IMPRESSION: Mild cardiomegaly. No acute pulmonary process. Electronically signed by: Fede Purvis DO (05/16/2018 7:20 PM) [facility]
[2018-05-16 19:54] LABS: CALCIUM 9.6 mg/dL (8.5-10.1); CREATININE 0.8 mg/dL (0.6-1.0); GFR 87.4; POTASSIUM 3.7 mmol/L (3.5-5.1)
[2018-05-16 20:00] LABS: ALBUMIN 3.3 g/dL (3.4-5.0); ALBUMIN/GLOBULIN RATIO 0.8 (1.0-1.7); TOTAL BILIRUBIN 0.3 mg/dL (0.2-1.0); TOTAL PROTEIN 7.7 g/dL (6.4-8.2)
[2018-05-16 21:12] LABS: BASO % 1 % (0-3); EOS # 0.1 x10^3/uL (0.0-0.7); EOS % 1 % (0-3); HEMATOCRIT 36.5 % (36.0-47.0); HEMOGLOBIN 11.6 g/dL (12.0-15.5); LYMPH # 1.8 x10^3/uL (1.0-4.8); LYMPH % 21 % (24-48); MEAN CORPUSCULAR HEMOGLOBIN 26 pg (25-35); MEAN CORPUSCULAR HGB CONC 32 g/dL (31-37); MEAN CORPUSCULAR VOLUME 83 fL (79-100); MONO # 0.7 x10^3/uL (0.0-1.1); MONO % 9 % (0-9); NEUT # 5.9 x10^3uL (1.8-7.7); NEUT % 69 % (31-73); PLATELET COUNT 407 x10^3/uL (140-400); RED BLOOD COUNT 4.38 x10^6/uL (3.50-5.40); RED CELL DISTRIBUTION WIDTH 16.4 % (11.5-14.5); WHITE BLOOD COUNT 8.5 x10^3/uL (4.0-11.0)
[2018-05-16] MEDS ORDERED: CONTRAST GIVEN. MC PRN (21:30)
[2018-05-16] MEDS ORDERED: IOHEXOL 350 MG/ML 100 ML VIAL. IV ONE (21:30)
[2018-05-16] MEDS ORDERED: KETOROLAC 15 MG/ML VIAL. IV ONE (21:45)
--- NOTE | 2018-05-16 21:50 | PHYS DOC ---
Past Medical History Past Medical History: Angina, CAD, CHF, COPD, Diabetes-Type II, Hypertension, [place], Other Additional Past Medical Histor: O2 DEPENDENT 3 L PRN, chronic pain Past Surgical History: Cholecystectomy, Coronary Bypass Surgery, Hysterectomy, Knee Replacement, Pacemaker, Other Additional Past Surgical Histo: STENTS Alcohol Use: None Drug Use: None Adult General Chief Complaint Chief Complaint: CHEST PAIN HPI HPI Patient is a 63 year old female with history of CAD, angina, COPD, hypertensive ,, just of heart failure presents with intermittent substernal chest pain the past several hours. Pain is described as dull aching and is nonradiating. It is not associated with nausea, shortness of breath, fever chills, cough cold or sweats. Denies increased leg pain or swelling. No medications or therapy sticking prior to ED arrival.[] Review of Systems Review of Systems Review symptoms as per history of present illness. All other review symptoms are negative. All other systems were reviewed and found to be within normal limits, except as documented in this note. Current Medications Current Medications Current Medications Medications (Trade) Dose Ordered Sig/Susan Start Time Stop Time Status Last Admin Dose Admin Fentanyl Citrate (Fentanyl 2ml Vial) 75 mcg 1X ONCE 05/16/18 20:15 05/16/18 20:17 DC 05/16/18 20:25 75 MCG Info (CONTRAST GIVEN -- Rx MONITORING) 1 each PRN DAILY PRN 05/16/18 21:30 05/18/18 21:29 Iohexol (Omnipaque 350 Mg/ml) 100 ml 1X ONCE 05/16/18 21:30 05/16/18 21:31 DC 05/16/18 22:09 100 ML Ketorolac Tromethamine (Toradol 15mg Vial) 15 mg 1X ONCE 05/16/18 21:45 05/16/18 21:46 DC 05/16/18 22:03 15 MG Ondansetron HCl (Zofran) 4 mg 1X ONCE 05/16/18 19:00 05/16/18 19:01 DC 05/16/18 19:31 4 MG Allergies Allergies Allergies Coded Allergies Type Severity Reaction Last Updated Verified ibuprofen Adverse Reaction Intermediate Nausea and Vomiting 12/02/17 Yes Physical Exam Physical Exam Constitutional: Well developed, well nourished, no acute distress, non-toxic appearance. [] HENT: Normocephalic, atraumatic, bilateral external ears normal, oropharynx moist, nose normal. [] Eyes: PERRLA, EOMI, conjunctiva normal, no discharge. [] Neck: Normal range of motion, no tenderness. [] Cardiovascular:Heart rate regular rhythm, no murmur [] Lungs & Thorax: Bilateral breath sounds clear to auscultation [] Abdomen: Bowel sounds normal, soft, no tenderness. [] Skin: Warm, dry, no erythema. [] Back: No tenderness. [] Extremities: No tenderness, no cyanosis, no clubbing, ROM intact, no edema. [] Neurologic: Alert and oriented X 3, normal motor function, normal sensory function, no focal deficits noted. [] Psychologic: Affect normal, judgement normal, mood normal. [] Current Patient Data Vital Signs Vital Signs Date Time Temp Pulse Resp B/P (MAP) Pulse Ox O2 Delivery O2 Flow Rate FiO2 05/16/18 21:45 61 175/74 (107) 97 05/16/18 20:25 18 Room Air 05/16/18 18:45 99.2 99.2 Lab Values Laboratory Tests Test 05/16/18 19:35 05/16/18 20:49 Prothrombin Time 19.0 SEC (11.7-14.0) H Prothrombin Time INR 1.6 (0.8-1.1) H D-Dimer (Anila) 0.92 ug/mlFEU (0.00-0.50) H Sodium Level 139 mmol/L (136-145) Potassium Level 3.7 mmol/L (3.5-5.1) Chloride Level 98 mmol/L (98-107) Carbon Dioxide Level 32 mmol/L (21-32) Anion Gap 9 (6-14) Blood Urea Nitrogen 22 mg/dL (7-20) H Creatinine 0.8 mg/dL (0.6-1.0) Estimated GFR (Cockcroft-Gault) 87.4 BUN/Creatinine Ratio 28 (6-20) H Glucose Level 104 mg/dL (70-99) H Calcium Level 9.6 mg/dL (8.5-10.1) Total Bilirubin 0.3 mg/dL (0.2-1.0) Aspartate Amino Transferase (AST) 20 U/L (15-37) Alanine Aminotransferase (ALT) 32 U/L (14-59) Alkaline Phosphatase 89 U/L (46-116) Troponin I Quantitative 0.017 ng/mL (0.000-0.055) Total Protein 7.7 g/dL (6.4-8.2) Albumin 3.3 g/dL (3.4-5.0) L Albumin/Globulin Ratio 0.8 (1.0-1.7) L White Blood Count 8.5 x10^3/uL (4.0-11.0) Red Blood Count 4.38 x10^6/uL (3.50-5.40) Hemoglobin 11.6 g/dL (12.0-15.5) L Hematocrit 36.5 % (36.0-47.0) Mean Corpuscular Volume 83 fL (79-100) Mean Corpuscular Hemoglobin 26 pg (25-35) Mean Corpuscular Hemoglobin Concent 32 g/dL (31-37) Red Cell Distribution Width 16.4 % (11.5-14.5) H Platelet Count 407 x10^3/uL (140-400) H Neutrophils (%) (Auto) 69 % (31-73) Lymphocytes (%) (Auto) 21 % (24-48) L Monocytes (%) (Auto) 9 % (0-9) Eosinophils (%) (Auto) 1 % (0-3) Basophils (%) (Auto) 1 % (0-3) Neutrophils # (Auto) 5.9 x10^3uL (1.8-7.7) Lymphocytes # (Auto) 1.8 x10^3/uL (1.0-4.8) Monocytes # (Auto) 0.7 x10^3/uL (0.0-1.1) Eosinophils # (Auto) 0.1 x10^3/uL (0.0-0.7) Basophils # (Auto) 0.0 x10^3/uL (0.0-0.2) Laboratory Tests 05/16/18 20:49 Laboratory Tests 05/16/18 19:35 EKG EKG [EKG: Reviewed, no acute ST segment elevation.] Radiology/Procedures Radiology/Procedures [Chest x-ray: Acute cardiopulmonary disease. CT angiogram chest: No acute findings per radiology report] Course & Med Decision Making Course & Med Decision Making Pertinent Labs and Imaging studies reviewed. (See chart for details) [Reproducible chest pain, history of CAD, troponin negative. Symptoms improved with treatment. CT angio chest negative for d-dimer. Will admit to the hospital service for further evaluation and treatment with anticipated cardiology or consultation] Dragon Disclaimer Dragon Disclaimer This electronic medical record was generated, in whole or in part, using a voice recognition dictation system. Departure Departure Impression: Primary Impression: Chest pain Disposition: ADMITTED INPATIENT Admitting Physician: Other (Dr. Dotson) Condition: STABLE Referrals: NO PCP (PCP) PERICO HURST DO May 16, 2018 21:50
--- NOTE | 2018-05-16 22:44 | RAD ---
Examination: CT ANGIOGRAPHY CHEST History: Chest pain, OMNI 350, 100ml Comparison/Correlation: 03/11/2018 CTA of the chest Findings: Axial images of chest were obtained following IV contrast with pulmonary arteriography protocol. Sagittal and coronal reformatted images provided. MIP images provided. Left-sided dual-lead pacemaker is present. Sternal wires are present. Motion limits evaluation at the mid thoracic level. Mosaic attenuation of lung tripp noted. Linear scarring or atelectasis is present involving the lower lobes but is minimal. No suspicious infiltrate. No enlarged thoracic lymph nodes. No pleural effusion. No pneumothorax. Pulmonary arterial vasculature is normal with no thromboembolic disease. The tracheobronchial tree is unremarkable. Evaluation however of the left lower lobe is limited due to motion. Mild dilated cardiomegaly present. Partially visualized upper abdomen is unremarkable. Cholecystectomy evident. Nodular contour of the left adrenal gland is unchanged. Impression: No pulmonary arterial thromboembolic disease. Mosaic attenuation of the lung tripp is present likely representing small airways disease. PQRS Compliance Statement: One or more of the following individualized dose reduction techniques were utilized for this examination: 1. Automated exposure control 2. Adjustment of the mA and/or kV according to patient size 3. Use of iterative reconstruction technique Electronically signed by: Amador Corbett MD (05/16/2018 10:41 PM) [id number]
[2018-05-16] MEDS ORDERED: ONDANSETRON PF 4 MG/2 ML VIAL. IV PRN (23:00)
[2018-05-16] MEDS ORDERED: ZOLP5TAB5 PO (23:22)
[2018-05-16] MEDS ORDERED: CLON0.5T11 PO (23:22)
[2018-05-16] MEDS ORDERED: CALC-56 PO (23:22)
[2018-05-16] MEDS ORDERED: FAMO20TA5 PO (23:22)
[2018-05-16] MEDS ORDERED: OXYC1TAB22 PO (23:22)
[2018-05-16] MEDS ORDERED: AMLO10TA8 PO (23:22)
[2018-05-16] MEDS ORDERED: FLUO20CA8 PO (23:22)
[2018-05-16] MEDS ORDERED: DEXTROSE 50% 25 GM / 50ML DISP.SYRIN. IV PRN (23:45)
[2018-05-16] MEDS ORDERED: ZOLPIDEM 5 MG TABLET. PO PRN (23:45)
[2018-05-16] MEDS: MORPHINE SULFATE 4 MG/ML VIAL. IV PRN (23:55)
--- NOTE | 2018-05-17 00:25 | NUR ---
Patient admission Pt arrived to the unit at approximately 2300 via w/c from the ED. Pt was oriented to room and unit routines. Patient information guide packet was explained and given to pt. All questions and concerns regarding pt's POC was addressed and answered. Pt verbalized understanding. Pt made comfortable in bed. Will continue to monitor pt closely.
[2018-05-17 03:00] VITALS: BP 142/63
[2018-05-17 06:01] LABS: ALBUMIN 3.1 g/dL (3.4-5.0); ALBUMIN/GLOBULIN RATIO 0.6 (1.0-1.7); CALCIUM 9.4 mg/dL (8.5-10.1); CREATININE 0.9 mg/dL (0.6-1.0); GFR 76.3; POTASSIUM 3.8 mmol/L (3.5-5.1); TOTAL BILIRUBIN 0.3 mg/dL (0.2-1.0); TOTAL PROTEIN 7.9 g/dL (6.4-8.2)
[2018-05-17] MEDS: MORPHINE SULFATE 4 MG/ML VIAL. IV PRN (06:02)
[2018-05-17 07:00] VITALS: BP 146/52
[2018-05-17] MEDS: IPRATRPIUM/ALBUTEROL 0.5/2.5MG 3 ML NEBU. NEB SCH ×4 (07:55→18:56)
--- NOTE | 2018-05-17 07:59 | PDOC1 ---
History and Physical Date of Admission Date of Admission DATE: 05/16/18 TIME: 22:52 Identification/Chief Complaint Chief Complaint Shortness of breath Source Source: Chart review, Patient History of Present Illness History of Present Illness 63 year old female with history of HTN, DM, chronic pain, and CAD (s/p stenting , CABG 2015 and PPM), COPD, SSS s/p PPM and recently started coumadin on 05/08/18 , Congestive heart failure presents with intermittent substernal chest pain the past several hours. Pain is described as dull aching and is nonradiating. It is not associated with fever chills, cough cold or sweats. Denies increased leg pain or swelling. For the past 3-4 days has had increasing dyspnea on exertion and chest pain on exertion. She describes the pain as a heaviness or pressure rated at 6/10, constant. No radiation. She has had some nausea but no vomiting. She has not had a cough. She denies any pleuritic pain. There are no alleviating or exacerbating factors to her symptoms, except as noted above. She is requesting pain medication for her chest discomfort. She states that she took nitroglycerin this morning without improvement in her symptoms. Found with CXR consistent with cardiomegaly and concern for interstitial edema, BNP elevated EKG appears to have right axis deviation that is new, so is admitted for further care and she would like her link trainer maintenance man, Dr. Arias consulted, however, he has retired and she met her new link trainer maintenance man at [facility] 2 weeks ago and was started on warfarin and changed from metoprolol to carvedilol 6.25mg and had metolazone 5mg q 48 hours added to her meds. She states she has not missed doses of her home meds, states she would like her 10mg ambien and 10-325mg oxycodone/apap continued while inpatient. Past Medical History Cardiovascular: CAD, CHF, HTN, [place], Hyperlipidemia, Other Pulmonary: COPD CENTRAL NERVOUS SYSTEM: Periperal neuropathy GI: GERD Heme/Onc: No pertinent hx Hepatobiliary: Cholelithiasis Psych: No pertinent hx Musculoskeletal: Osteoarthritis Rheumatologic: No pertinent hx Infectious disease: No pertinent hx Renal/: Chronic renal insuff Endocrine: Diabetes Past Surgical History Past Surgical History: Pacemaker, Appendectomy, Cholecystectomy, Total knee replacement, Hysterectomy Family History Family History: Diabetes Family History: Parent Social History Smoke: No ALCOHOL: none Drugs: None Current Medications Current Medications Current Medications Fentanyl Citrate (Fentanyl 2ml Vial) 50 mcg 1X ONCE IV Last administered on at 19:31; Start 05/16/18 at 19:00; Stop 05/16/18 at 19:01; Status DC Ondansetron HCl (Zofran) 4 mg 1X ONCE IV Last administered on 05/16/18at 19:31 ; Start 05/16/18 at 19:00; Stop 05/16/18 at 19:01; Status DC Fentanyl Citrate (Fentanyl 2ml Vial) 75 mcg 1X ONCE IV Last administered on at 20:25; Start 05/16/18 at 20:15; Stop 05/16/18 at 20:17; Status DC Iohexol (Omnipaque 350 Mg/ml) 100 ml 1X ONCE IV Last administered on at 22:09; Start 05/16/18 at 21:30; Stop 05/16/18 at 21:31; Status DC Info (CONTRAST GIVEN -- Rx MONITORING) 1 each PRN DAILY PRN MC SEE COMMENTS; Start 05/16/18 at 21:30; Stop 05/18/18 at 21:29 Ketorolac Tromethamine (Toradol 15mg Vial) 15 mg 1X ONCE IV Last administered on 05/16/18at 22:03; Start 05/16/18 at 21:45; Stop 05/16/18 at 21:46; Status DC Ondansetron HCl (Zofran) 4 mg PRN Q8HRS PRN IV NAUSEA/VOMITING; Start 05/16/18 at 23:00; Stop 05/17/18 at 22:59 Albuterol/ Ipratropium (Duoneb) 3 ml RTQID NEB ; Start 05/17/18 at 08:00; Stop 05/18/18 at 07:59 Insulin Human Lispro (HumaLOG) 0-7 UNITS TIDWMEALHC SQ ; Start 05/17/18 at 08:00 Dextrose (Dextrose 50%-Water Syringe) 12.5 gm PRN Q15MIN PRN IV SEE COMMENTS; Start 05/16/18 at 23:45 Morphine Sulfate (Morphine Sulfate) 4 mg PRN Q4HRS PRN IV PAIN Last administered on 05/17/18at 06:02; Start 05/16/18 at 23:45 Zolpidem Tartrate (Ambien) 5 mg PRN QHS PRN PO INSOMNIA Last administered on at 23:54; Start 05/16/18 at 23:45 Active Scripts Active Amaryl (Glimepiride) 2 Mg Tablet 2 Mg PO DAILY 30 Days Reported Percocet 10-325 Mg Tablet (Oxycodone/Acetaminophen) 1 Each Tablet 2 Tab PO PRN Q4-6HRS PRN Calcium 500 + Vit D 200 Caplet (Calcium Carbonate/Vitamin D3) 1 Each Tablet 1 Each PO DAILY Zolpidem Tartrate 5 Mg Tablet 5 Mg PO QHS Clonazepam 0.5 Mg Tablet 0.5 Mg PO TID Fluoxetine Hcl 20 Mg Capsule 1 Cap PO DAILY Amlodipine Besylate 10 Mg Tablet 10 Mg PO DAILY Famotidine 20 Mg Tablet 20 Mg PO BID Losartan Potassium 100 Mg Tablet 100 Mg PO DAILY Furosemide 80 Mg Tablet 80 Mg PO TID Albuterol Sulfate Conc Neb Soln (Albuterol Sulfate) 2.5 Mg/0.5 Ml Vial.neb 5 Mg NEB PRN PRN Metoprolol Tartrate 25 Mg Tablet 1 Tab PO BID Ferrous Sulfate 325 Mg Tablet 1 Tab PO DAILY NITROGLYCERIN SubLingual (Nitroglycerin) 0.4 Mg Tab.subl 0.4 Mg SL PRN Q5MIN PRN Atorvastatin Calcium 20 Mg Tablet 20 Mg PO HS Potassium Chloride 10 Meq Capsule.er 10 Meq PO BID Aspir 81 (Aspirin) 81 Mg Tablet.dr 1 Tab PO DAILY Clopidogrel (Clopidogrel Bisulfate) 75 Mg Tablet 1 Tab PO DAILY Allergies Allergies: Coded Allergies: ibuprofen (Verified Adverse Reaction, Intermediate, Nausea and Vomiting, ) ROS General: YES: Fatigue, Malaise, Appetite PSYCHOLOGICAL ROS: No: Anxiety, Behavioral Disorder, Concentration difficultie , Decreased libido, Depression, Disorientation, Hallucinations, Hostility, Irritablity, Memory difficulties, Mood Swings, Obsessive thoughts, Physical abuse, Sexual abuse, Sleep disturbances, Suicidal ideation, Other Eyes: No Blurry vision, No Decreased vision, No Double vision, No Dry eyes, No Excessive tearing, No Eye Pain, No Itchy Eyes, No Loss of vision, No Photophobia , No Scotomata, No Uses contacts, No Uses glasses, No Other HEENT: No: Heacaches, Visual Changes, Hearing change, Nasal congestion, Nasal discharge, Oral lesions, Sinus pain, Sore Throat, Epistaxis, Sneezing, Snoring, Tinnitus, Vertigo, Vocal changes, Other ALLERGY AND IMMUNOLOGY: No: Hives, Insect Bite Sensitivity, Itchy/Watery Eyes, Nasal Congestion, Post Nasal Drip, Seasonal Allergies, Other Hematological and Lymphatic: No: Bleeding Problems, Blood Clots, Blood Transfusions, Brusing, Night Sweats, Pallor, Swollen Lymph Nodes, Other ENDOCRINE: No: Breast Changes, Galactorrhea, Hair Pattern Changes, Hot Flashes , Malaise/lethargy, Mood Swings, Palpitations, Polydipsia/polyuria, Skin Changes , Temperature Intolerance, Unexpected Weight Changes, Other Breast: No New/Changing Breast Lumps, No Nipple changes, No Nipple discharge, No Other Respiratory: YES: Cough, Shortness of breath Cardiovascular: yes Chest Pain, yes Palpitations; No Orthopnea, No Paroxysmal Noc. Dyspnea, No Edema, No Lt Headedness, No Other Gastrointestinal: Yes Nausea; No Vomiting, No Abdominal Pain, No Diarrhea, No Constipation, No Melena, No Hematochezia, No Other Genitourinary: No Dysuria, No Frequency, No Incontinence, No Hematuria, No Retention, No Discharge, No Urgency, No Pain, No Flank Pain, No Other, No , No , No , No , No , No , No Musculoskeletal: Yes Gait Disturbance; No Joint Pain, No Joint Stiffness, No Joint Swelling, No Muscle Pain, No Muscular Weakness, No Pain In:, No Swelling In:, No Other Neurological: No Behavorial Changes, No Bowel/Bladder ControlChng, No Confusion , No Dizziness, No Gait Disturbance, No Headaches, No Impaired Coord/balance, No Memory Loss, No Numbness/Tingling, No Seizures, No Speech Problems, No Tremors, No Visual Changes, No Weakness, No Other Skin: No Dry Skin, No Eczema, No Hair Changes, No Lumps, No Mole Changes, No Mottling, No Nail Changes, No Pruritus, No Rash, No Skin Lesion Changes, No Other, No Acne Physical Exam General: Alert, Oriented X3, Cooperative, No acute distress HEENT: Atraumatic, PERRLA, EOMI, Mucous membr. moist/pink Lungs: Clear to auscultation, Normal air movement Heart: S1S2, no gallops, irregularly irregular Abdomen: Normal bowel sounds, Soft, No tenderness, No hepatosplenomegaly, No masses Rectal Exam: not examined Extremities: No clubbing, No cyanosis, No edema, Normal pulses, No tenderness/ swelling Skin: No rashes, No breakdown, No significant lesion Neuro: Normal gait, Normal speech, Strength at 5/5 X4 ext, Normal tone, Sensation intact, Cranial nerves 3-12 NL, Reflexes 2+ Psych/Mental Status: Mental status NL, Mood NL Vitals Vitals Vital Signs Date Time Temp Pulse Resp B/P (MAP) Pulse Ox O2 Delivery O2 Flow Rate FiO2 05/17/18 06:32 93 Nasal Cannula 3.0 05/17/18 03:00 97.3 60 18 142/63 (89) 97.3 Labs Labs Laboratory Tests Test 05/16/18 19:35 05/16/18 20:49 05/16/18 23:08 05/17/18 02:00 Prothrombin Time 19.0 SEC (11.7-14.0) Prothromb Time International Ratio 1.6 (0.8-1.1) D-Dimer (Anila) 0.92 ug/mlFEU (0.00-0.50) Sodium Level 139 mmol/L (136-145) Potassium Level 3.7 mmol/L (3.5-5.1) Chloride Level 98 mmol/L (98-107) Carbon Dioxide Level 32 mmol/L (21-32) Anion Gap 9 (6-14) Blood Urea Nitrogen 22 mg/dL (7-20) Creatinine 0.8 mg/dL (0.6-1.0) Estimated GFR (Cockcroft-Gault) 87.4 BUN/Creatinine Ratio 28 (6-20) Glucose Level 104 mg/dL (70-99) Calcium Level 9.6 mg/dL (8.5-10.1) Total Bilirubin 0.3 mg/dL (0.2-1.0) Aspartate Amino Transf (AST/SGOT) 20 U/L (15-37) Alanine Aminotransferase (ALT/SGPT) 32 U/L (14-59) Alkaline Phosphatase 89 U/L (46-116) Troponin I Quantitative 0.017 ng/mL (0.000-0.055) < 0.017 ng/mL (0.000-0.055) Total Protein 7.7 g/dL (6.4-8.2) Albumin 3.3 g/dL (3.4-5.0) Albumin/Globulin Ratio 0.8 (1.0-1.7) White Blood Count 8.5 x10^3/uL (4.0-11.0) Red Blood Count 4.38 x10^6/uL (3.50-5.40) Hemoglobin 11.6 g/dL (12.0-15.5) Hematocrit 36.5 % (36.0-47.0) Mean Corpuscular Volume 83 fL (79-100) Mean Corpuscular Hemoglobin 26 pg (25-35) Mean Corpuscular Hemoglobin Concent 32 g/dL (31-37) Red Cell Distribution Width 16.4 % (11.5-14.5) Platelet Count 407 x10^3/uL (140-400) Neutrophils (%) (Auto) 69 % (31-73) Lymphocytes (%) (Auto) 21 % (24-48) Monocytes (%) (Auto) 9 % (0-9) Eosinophils (%) (Auto) 1 % (0-3) Basophils (%) (Auto) 1 % (0-3) Neutrophils # (Auto) 5.9 x10^3uL (1.8-7.7) Lymphocytes # (Auto) 1.8 x10^3/uL (1.0-4.8) Monocytes # (Auto) 0.7 x10^3/uL (0.0-1.1) Eosinophils # (Auto) 0.1 x10^3/uL (0.0-0.7) Basophils # (Auto) 0.0 x10^3/uL (0.0-0.2) Glucose (Fingerstick) 102 mg/dL (70-99) Test 05/17/18 04:30 Sodium Level 136 mmol/L (136-145) Potassium Level 3.8 mmol/L (3.5-5.1) Chloride Level 96 mmol/L (98-107) Carbon Dioxide Level 27 mmol/L (21-32) Anion Gap 13 (6-14) Blood Urea Nitrogen 22 mg/dL (7-20) Creatinine 0.9 mg/dL (0.6-1.0) Estimated GFR (Cockcroft-Gault) 76.3 BUN/Creatinine Ratio 24 (6-20) Glucose Level 144 mg/dL (70-99) Calcium Level 9.4 mg/dL (8.5-10.1) Total Bilirubin 0.3 mg/dL (0.2-1.0) Aspartate Amino Transf (AST/SGOT) 25 U/L (15-37) Alanine Aminotransferase (ALT/SGPT) 29 U/L (14-59) Alkaline Phosphatase 82 U/L (46-116) Troponin I Quantitative < 0.017 ng/mL (0.000-0.055) Total Protein 7.9 g/dL (6.4-8.2) Albumin 3.1 g/dL (3.4-5.0) Albumin/Globulin Ratio 0.6 (1.0-1.7) Laboratory Tests Test 05/16/18 19:35 05/16/18 20:49 05/16/18 23:08 05/17/18 02:00 Prothrombin Time 19.0 SEC (11.7-14.0) Prothromb Time International Ratio 1.6 (0.8-1.1) D-Dimer (Anila) 0.92 ug/mlFEU (0.00-0.50) Sodium Level 139 mmol/L (136-145) Potassium Level 3.7 mmol/L (3.5-5.1) Chloride Level 98 mmol/L (98-107) Carbon Dioxide Level 32 mmol/L (21-32) Anion Gap 9 (6-14) Blood Urea Nitrogen 22 mg/dL (7-20) Creatinine 0.8 mg/dL (0.6-1.0) Estimated GFR (Cockcroft-Gault) 87.4 BUN/Creatinine Ratio 28 (6-20) Glucose Level 104 mg/dL (70-99) Calcium Level 9.6 mg/dL (8.5-10.1) Total Bilirubin 0.3 mg/dL (0.2-1.0) Aspartate Amino Transf (AST/SGOT) 20 U/L (15-37) Alanine Aminotransferase (ALT/SGPT) 32 U/L (14-59) Alkaline Phosphatase 89 U/L (46-116) Troponin I Quantitative 0.017 ng/mL (0.000-0.055) < 0.017 ng/mL (0.000-0.055) Total Protein 7.7 g/dL (6.4-8.2) Albumin 3.3 g/dL (3.4-5.0) Albumin/Globulin Ratio 0.8 (1.0-1.7) White Blood Count 8.5 x10^3/uL (4.0-11.0) Red Blood Count 4.38 x10^6/uL (3.50-5.40) Hemoglobin 11.6 g/dL (12.0-15.5) Hematocrit 36.5 % (36.0-47.0) Mean Corpuscular Volume 83 fL (79-100) Mean Corpuscular Hemoglobin 26 pg (25-35) Mean Corpuscular Hemoglobin Concent 32 g/dL (31-37) Red Cell Distribution Width 16.4 % (11.5-14.5) Platelet Count 407 x10^3/uL (140-400) Neutrophils (%) (Auto) 69 % (31-73) Lymphocytes (%) (Auto) 21 % (24-48) Monocytes (%) (Auto) 9 % (0-9) Eosinophils (%) (Auto) 1 % (0-3) Basophils (%) (Auto) 1 % (0-3) Neutrophils # (Auto) 5.9 x10^3uL (1.8-7.7) Lymphocytes # (Auto) 1.8 x10^3/uL (1.0-4.8) Monocytes # (Auto) 0.7 x10^3/uL (0.0-1.1) Eosinophils # (Auto) 0.1 x10^3/uL (0.0-0.7) Basophils # (Auto) 0.0 x10^3/uL (0.0-0.2) Glucose (Fingerstick) 102 mg/dL (70-99) Test 05/17/18 04:30 Sodium Level 136 mmol/L (136-145) Potassium Level 3.8 mmol/L (3.5-5.1) Chloride Level 96 mmol/L (98-107) Carbon Dioxide Level 27 mmol/L (21-32) Anion Gap 13 (6-14) Blood Urea Nitrogen 22 mg/dL (7-20) Creatinine 0.9 mg/dL (0.6-1.0) Estimated GFR (Cockcroft-Gault) 76.3 BUN/Creatinine Ratio 24 (6-20) Glucose Level 144 mg/dL (70-99) Calcium Level 9.4 mg/dL (8.5-10.1) Total Bilirubin 0.3 mg/dL (0.2-1.0) Aspartate Amino Transf (AST/SGOT) 25 U/L (15-37) Alanine Aminotransferase (ALT/SGPT) 29 U/L (14-59) Alkaline Phosphatase 82 U/L (46-116) Troponin I Quantitative < 0.017 ng/mL (0.000-0.055) Total Protein 7.9 g/dL (6.4-8.2) Albumin 3.1 g/dL (3.4-5.0) Albumin/Globulin Ratio 0.6 (1.0-1.7) Images Images CTPA - No pulmonary arterial thromboembolic disease. Mosaic attenuation of the lung tripp is present likely representing small airways disease. VTE Prophylaxis Ordered VTE Prophylaxis Devices: Yes VTE Pharmacological Prophylaxi: Yes Assessment/Plan Assessment/Plan A/P: Chest pain - she does have a strong cardiac history, concerning for new EKG findings, will trend troponins overnight, this could be ACS. ASA, morphine. Consult cardiology Shortness of breath - with her elevated BNP, interstitial edema and cardiomegaly on CXR I am concerned for CHF. Will order lasix IV HTN - not initially well controlled, restart home medications, may need prn vasotec or hydralazine DM - cont her home levemir and mealtime scheduled plus sliding scale Acute on chronic diastolic heart failure: 2-D echo in February 2018 showed normal LV function with EF 50-55%. Continue gentle diuresis with Lasix. She had metolazone recently filled with her new link trainer maintenance man on 05/08/18 at [facility], but she does not recall this being one of her meds Hyperlipidemia - Continue statin therapy Sick sinus syndrome s/p permanent pacemaker implantation, stable. Apparently she was just started on warfarin as well. Will request med records from [facility]. Her INR is 1.6 FEN - Cardiac carb consistent diet PPX - heparin FULL CODE Inpatient for what looks to be early CHF/pulmonary edema with possible ACS. Initially admitted as observation, but she does need some diuresis VENKAT ALEJANDRO MD May 17, 2018 07:59
[2018-05-17] MEDS ORDERED: oxyCODONE/APAP 10/325 1 TAB TABLET PO PRN ×2 (08:00→10:30)
[2018-05-17] MEDS: INSULIN LISPRO 300 UNITS/3 ML INSULN.PEN. SQ SCH ×4 (08:00→21:00)
[2018-05-17] MEDS ORDERED: NITROGLYCERIN SUBLINGUAL 0.4 MG BOTTLE OF 25. SL PRN (08:00)
[2018-05-17] MEDS ORDERED: clonazePAM 0.5 MG TABLET PO PRN (08:00)
[2018-05-17 08:06] LABS: BASO % 0 % (0-3); EOS # 0.1 x10^3/uL (0.0-0.7); EOS % 1 % (0-3); HEMATOCRIT 35.4 % (36.0-47.0); HEMOGLOBIN 11.3 g/dL (12.0-15.5); LYMPH # 1.6 x10^3/uL (1.0-4.8); LYMPH % 21 % (24-48); MEAN CORPUSCULAR HEMOGLOBIN 27 pg (25-35); MEAN CORPUSCULAR HGB CONC 32 g/dL (31-37); MEAN CORPUSCULAR VOLUME 84 fL (79-100); MONO # 0.7 x10^3/uL (0.0-1.1); MONO % 9 % (0-9); NEUT # 5.1 x10^3uL (1.8-7.7); NEUT % 68 % (31-73); PLATELET COUNT 395 x10^3/uL (140-400); RED BLOOD COUNT 4.24 x10^6/uL (3.50-5.40); RED CELL DISTRIBUTION WIDTH 16.3 % (11.5-14.5); WHITE BLOOD COUNT 7.5 x10^3/uL (4.0-11.0)
[2018-05-17] MEDS ORDERED: ALBUTEROL SULFATE 2.5 MG/3 ML NEBU. NEB PRN (08:15)
[2018-05-17] MEDS: FERROUS SULFATE 325 MG TABLET. PO SCH (08:45)
[2018-05-17] MEDS: CLOPIDOGREL BISULFATE 75 MG TABLET PO SCH (08:45)
[2018-05-17] MEDS: LOSARTAN POTASSIUM 50 MG TABLET. PO SCH (08:45)
[2018-05-17] MEDS: CALCIUM CARB/VIT D3 500/200 TABLET. PO SCH (08:46)
[2018-05-17] MEDS: ASPIRIN ENTERIC COATED 81 MG TABLET.DR. PO SCH (08:46)
[2018-05-17] MEDS: FAMOTIDINE 20 MG TABLET. PO SCH ×2 (08:46→21:29)
[2018-05-17] MEDS: POTASSIUM CHLORIDE 10 MEQ TABLET.ER. PO SCH ×2 (08:46→17:25)
[2018-05-17] MEDS: GLIMEPIRIDE 2 MG TABLET. PO SCH (08:46)
[2018-05-17] MEDS: amLODIPine BESYLATE 10 MG TABLET PO SCH (08:46)
[2018-05-17] MEDS: METOPROLOL SUCC 24HR ER 50 MG TAB.ER.24H. PO SCH (08:46)
[2018-05-17] MEDS: FUROSEMIDE 40 MG/4 ML VIAL. IVP SCH ×2 (08:47→14:04)
[2018-05-17] MEDS: FLUoxetine HCL 20 MG CAPSULE PO SCH (08:47)
--- NOTE | 2018-05-17 09:52 | PDOC2 ---
CONSULT Date of Consult Date of Consult DATE: 05/17/18 TIME: 09:43 Reason for Consult Reason for Consult: Chest pain Referring Physician Referring Physician: Dr. Be Identification/Chief Complaint Chief Complaint Chest pain Source Source: Chart review, Patient History of Present Illness Reason for Visit: 63-year-old female with history of coronary artery disease s/p CABG and sick sinus syndrome s/p permanent pacemaker implantation presented complaining of intermittent episodes of retrosternal chest pain associated with mild dyspnea and worse with exertion. She denied any orthopnea/PND, palpitations or syncope. Of note, she had cardiac catheterization by Dr. Arias in October 2016 that showed patent left internal mammary artery graft and patent saphenous vein graft to the obtuse marginal branch. Past Medical History Cardiovascular: CAD, CHF, HTN, CA, Hyperlipidemia, Other Pulmonary: COPD CENTRAL NERVOUS SYSTEM: Periperal neuropathy GI: GERD Heme/Onc: No pertinent hx Hepatobiliary: Cholelithiasis Psych: No pertinent hx Musculoskeletal: Osteoarthritis Rheumatologic: No pertinent hx Infectious disease: No pertinent hx Renal/: Chronic renal insuff Endocrine: Diabetes Past Surgical History Past Surgical History: Pacemaker, Appendectomy, Cholecystectomy, Total knee replacement, Hysterectomy Family History Family History: Diabetes Social History Social History: Parent ALCOHOL: none Drugs: None Current Medications Current Medications Current Medications Fentanyl Citrate (Fentanyl 2ml Vial) 50 mcg 1X ONCE IV Last administered on at 19:31; Start 05/16/18 at 19:00; Stop 05/16/18 at 19:01; Status DC Ondansetron HCl (Zofran) 4 mg 1X ONCE IV Last administered on 05/16/18at 19:31 ; Start 05/16/18 at 19:00; Stop 05/16/18 at 19:01; Status DC Fentanyl Citrate (Fentanyl 2ml Vial) 75 mcg 1X ONCE IV Last administered on at 20:25; Start 05/16/18 at 20:15; Stop 05/16/18 at 20:17; Status DC Iohexol (Omnipaque 350 Mg/ml) 100 ml 1X ONCE IV Last administered on at 22:09; Start 05/16/18 at 21:30; Stop 05/16/18 at 21:31; Status DC Info (CONTRAST GIVEN -- Rx MONITORING) 1 each PRN DAILY PRN MC SEE COMMENTS; Start 05/16/18 at 21:30; Stop 05/18/18 at 21:29 Ketorolac Tromethamine (Toradol 15mg Vial) 15 mg 1X ONCE IV Last administered on 05/16/18at 22:03; Start 05/16/18 at 21:45; Stop 05/16/18 at 21:46; Status DC Ondansetron HCl (Zofran) 4 mg PRN Q8HRS PRN IV NAUSEA/VOMITING; Start 05/16/18 at 23:00; Stop 05/17/18 at 22:59 Albuterol/ Ipratropium (Duoneb) 3 ml RTQID NEB Last administered on 05/17/18at 07:55; Start 05/17/18 at 08:00; Stop 05/18/18 at 07:59 Insulin Human Lispro (HumaLOG) 0-7 UNITS TIDWMEALHC SQ ; Start 05/17/18 at 08:00 Dextrose (Dextrose 50%-Water Syringe) 12.5 gm PRN Q15MIN PRN IV SEE COMMENTS; Start 05/16/18 at 23:45 Morphine Sulfate (Morphine Sulfate) 4 mg PRN Q4HRS PRN IV PAIN Last administered on 05/17/18 06:02; Start 05/16/18 at 23:45 Zolpidem Tartrate (Ambien) 5 mg PRN QHS PRN PO INSOMNIA Last administered on at 23:54; Start 05/16/18 at 23:45 Amlodipine Besylate (Norvasc) 10 mg DAILY PO Last administered on 05/17/18 08: 46; Start 05/17/18 at 09:00 Aspirin (Ecotrin) 81 mg DAILY PO Last administered on 05/17/18 08:46; Start at 09:00 Atorvastatin Calcium (Lipitor) 20 mg HS PO ; Start 05/17/18 at 21:00 Calcium/Vitamin D (Oscal D 500mg/ 200uts) 1 tab DAILY PO Last administered on 08:46; Start 05/17/18 at 09:00 Clonazepam (KlonoPIN) 0.5 mg PRN TID PRN PO anxiety; Start 05/17/18 at 08:00 Clopidogrel Bisulfate (Plavix) 75 mg DAILY PO Last administered on 05/17/18at 08 :45; Start 05/17/18 at 09:00 Famotidine (Pepcid) 20 mg BID PO Last administered on 05/17/18 08:46; Start at 09:00 Ferrous Sulfate (Feosol) 325 mg DAILY PO Last administered on 05/17/18 08:45; Start 05/17/18 at 09:00 Fluoxetine HCl (PROzac) 20 mg DAILY PO Last administered on 05/17/18 08:47; Start 05/17/18 at 09:00 Glimepiride (Amaryl) 2 mg [id number] PO Last administered on 05/17/18 08:46; Start 05/17/18 at 09:00 Nitroglycerin (Nitrostat) 0.4 mg PRN Q5MIN PRN SL CHEST PAIN; Start 05/17/18 at 08:00 Oxycodone/ Acetaminophen (Percocet 10/325) 0.5 tab PRN Q6HRS PRN PO PAIN Last administered on 05/17/18 08:47; Start 05/17/18 at 08:00 Potassium Chloride (Klor-Con) 10 meq BIDWMEALS PO Last administered on 08:46; Start 05/17/18 at 09:00 Zolpidem Tartrate (Ambien) 5 mg QHS PO ; Start 05/17/18 at 21:00 Albuterol Sulfate (Ventolin Neb Soln) 2.5 mg PRN Q6HRS PRN NEB SHORTNESS OF BREATH; Start 05/17/18 at 08:15 Losartan Potassium (Cozaar) 100 mg DAILY PO Last administered on 05/17/18 08: 45; Start 05/17/18 at 09:00 Metoprolol Succinate (Toprol Xl) 50 mg DAILY PO Last administered on 05/17/18 08:46; Start 05/17/18 at 09:00 Furosemide (Lasix) 40 mg [id number] IVP Last administered on 05/17/18 08:47; Start 05/17/18 at 09:00 Active Scripts Active Amaryl (Glimepiride) 2 Mg Tablet 2 Mg PO DAILY 30 Days Reported Percocet 10-325 Mg Tablet (Oxycodone/Acetaminophen) 1 Each Tablet 2 Tab PO PRN Q4-6HRS PRN Calcium 500 + Vit D 200 Caplet (Calcium Carbonate/Vitamin D3) 1 Each Tablet 1 Each PO DAILY Zolpidem Tartrate 5 Mg Tablet 5 Mg PO QHS Clonazepam 0.5 Mg Tablet 0.5 Mg PO TID Fluoxetine Hcl 20 Mg Capsule 1 Cap PO DAILY Amlodipine Besylate 10 Mg Tablet 10 Mg PO DAILY Famotidine 20 Mg Tablet 20 Mg PO BID Losartan Potassium 100 Mg Tablet 100 Mg PO DAILY Furosemide 80 Mg Tablet 80 Mg PO TID Albuterol Sulfate Conc Neb Soln (Albuterol Sulfate) 2.5 Mg/0.5 Ml Vial.neb 5 Mg NEB PRN PRN Metoprolol Tartrate 25 Mg Tablet 1 Tab PO BID Ferrous Sulfate 325 Mg Tablet 1 Tab PO DAILY NITROGLYCERIN SubLingual (Nitroglycerin) 0.4 Mg Tab.subl 0.4 Mg SL PRN Q5MIN PRN Atorvastatin Calcium 20 Mg Tablet 20 Mg PO HS Potassium Chloride 10 Meq Capsule.er 10 Meq PO BID Aspir 81 (Aspirin) 81 Mg Tablet.dr 1 Tab PO DAILY Clopidogrel (Clopidogrel Bisulfate) 75 Mg Tablet 1 Tab PO DAILY Allergies Allergies: Coded Allergies: ibuprofen (Verified Adverse Reaction, Intermediate, Nausea and Vomiting, ) ROS PSYCHOLOGICAL ROS: No: Hallucinations Eyes: No Loss of vision HEENT: No: Epistaxis Respiratory: YES: Shortness of breath; No: Hemoptysis Cardiovascular: yes Chest Pain Gastrointestinal: No Vomiting, No Diarrhea Genitourinary: No Hematuria Neurological: No Seizures Skin: No Rash Physical Exam General: Alert, Oriented X3 HEENT: Atraumatic, PERRLA Lungs: Other (scattered crepitations bilaterally) Heart: Regular rate Abdomen: Soft, No tenderness Extremities: No edema Neuro: Normal speech Psych/Mental Status: Mood NL Vitals VITALS Vital Signs Date Time Temp Pulse Resp B/P (MAP) Pulse Ox O2 Delivery O2 Flow Rate FiO2 05/17/18 08:47 99 Room Air 3.0 05/17/18 08:46 60 142/63 05/17/18 03:00 97.3 18 97.3 Labs Labs Laboratory Tests Test 05/16/18 19:35 05/16/18 20:49 05/16/18 23:08 05/17/18 02:00 Prothrombin Time 19.0 SEC (11.7-14.0) Prothromb Time International Ratio 1.6 (0.8-1.1) D-Dimer (Anila) 0.92 ug/mlFEU (0.00-0.50) Sodium Level 139 mmol/L (136-145) Potassium Level 3.7 mmol/L (3.5-5.1) Chloride Level 98 mmol/L (98-107) Carbon Dioxide Level 32 mmol/L (21-32) Anion Gap 9 (6-14) Blood Urea Nitrogen 22 mg/dL (7-20) Creatinine 0.8 mg/dL (0.6-1.0) Estimated GFR (Cockcroft-Gault) 87.4 BUN/Creatinine Ratio 28 (6-20) Glucose Level 104 mg/dL (70-99) Calcium Level 9.6 mg/dL (8.5-10.1) Total Bilirubin 0.3 mg/dL (0.2-1.0) Aspartate Amino Transf (AST/SGOT) 20 U/L (15-37) Alanine Aminotransferase (ALT/SGPT) 32 U/L (14-59) Alkaline Phosphatase 89 U/L (46-116) Troponin I Quantitative 0.017 ng/mL (0.000-0.055) < 0.017 ng/mL (0.000-0.055) Total Protein 7.7 g/dL (6.4-8.2) Albumin 3.3 g/dL (3.4-5.0) Albumin/Globulin Ratio 0.8 (1.0-1.7) White Blood Count 8.5 x10^3/uL (4.0-11.0) Red Blood Count 4.38 x10^6/uL (3.50-5.40) Hemoglobin 11.6 g/dL (12.0-15.5) Hematocrit 36.5 % (36.0-47.0) Mean Corpuscular Volume 83 fL (79-100) Mean Corpuscular Hemoglobin 26 pg (25-35) Mean Corpuscular Hemoglobin Concent 32 g/dL (31-37) Red Cell Distribution Width 16.4 % (11.5-14.5) Platelet Count 407 x10^3/uL (140-400) Neutrophils (%) (Auto) 69 % (31-73) Lymphocytes (%) (Auto) 21 % (24-48) Monocytes (%) (Auto) 9 % (0-9) Eosinophils (%) (Auto) 1 % (0-3) Basophils (%) (Auto) 1 % (0-3) Neutrophils # (Auto) 5.9 x10^3uL (1.8-7.7) Lymphocytes # (Auto) 1.8 x10^3/uL (1.0-4.8) Monocytes # (Auto) 0.7 x10^3/uL (0.0-1.1) Eosinophils # (Auto) 0.1 x10^3/uL (0.0-0.7) Basophils # (Auto) 0.0 x10^3/uL (0.0-0.2) Glucose (Fingerstick) 102 mg/dL (70-99) Test 05/17/18 04:30 05/17/18 07:25 05/17/18 08:11 Sodium Level 136 mmol/L (136-145) Potassium Level 3.8 mmol/L (3.5-5.1) Chloride Level 96 mmol/L (98-107) Carbon Dioxide Level 27 mmol/L (21-32) Anion Gap 13 (6-14) Blood Urea Nitrogen 22 mg/dL (7-20) Creatinine 0.9 mg/dL (0.6-1.0) Estimated GFR (Cockcroft-Gault) 76.3 BUN/Creatinine Ratio 24 (6-20) Glucose Level 144 mg/dL (70-99) Calcium Level 9.4 mg/dL (8.5-10.1) Total Bilirubin 0.3 mg/dL (0.2-1.0) Aspartate Amino Transf (AST/SGOT) 25 U/L (15-37) Alanine Aminotransferase (ALT/SGPT) 29 U/L (14-59) Alkaline Phosphatase 82 U/L (46-116) Troponin I Quantitative < 0.017 ng/mL (0.000-0.055) Total Protein 7.9 g/dL (6.4-8.2) Albumin 3.1 g/dL (3.4-5.0) Albumin/Globulin Ratio 0.6 (1.0-1.7) White Blood Count 7.5 x10^3/uL (4.0-11.0) Red Blood Count 4.24 x10^6/uL (3.50-5.40) Hemoglobin 11.3 g/dL (12.0-15.5) Hematocrit 35.4 % (36.0-47.0) Mean Corpuscular Volume 84 fL (79-100) Mean Corpuscular Hemoglobin 27 pg (25-35) Mean Corpuscular Hemoglobin Concent 32 g/dL (31-37) Red Cell Distribution Width 16.3 % (11.5-14.5) Platelet Count 395 x10^3/uL (140-400) Neutrophils (%) (Auto) 68 % (31-73) Lymphocytes (%) (Auto) 21 % (24-48) Monocytes (%) (Auto) 9 % (0-9) Eosinophils (%) (Auto) 1 % (0-3) Basophils (%) (Auto) 0 % (0-3) Neutrophils # (Auto) 5.1 x10^3uL (1.8-7.7) Lymphocytes # (Auto) 1.6 x10^3/uL (1.0-4.8) Monocytes # (Auto) 0.7 x10^3/uL (0.0-1.1) Eosinophils # (Auto) 0.1 x10^3/uL (0.0-0.7) Basophils # (Auto) 0.0 x10^3/uL (0.0-0.2) LS-Pux-V-Type Natriuretic Peptide 769 pg/mL (0-124) Glucose (Fingerstick) 127 mg/dL (70-99) Laboratory Tests Test 05/16/18 19:35 05/16/18 20:49 05/16/18 23:08 05/17/18 02:00 Prothrombin Time 19.0 SEC (11.7-14.0) Prothromb Time International Ratio 1.6 (0.8-1.1) D-Dimer (Anila) 0.92 ug/mlFEU (0.00-0.50) Sodium Level 139 mmol/L (136-145) Potassium Level 3.7 mmol/L (3.5-5.1) Chloride Level 98 mmol/L (98-107) Carbon Dioxide Level 32 mmol/L (21-32) Anion Gap 9 (6-14) Blood Urea Nitrogen 22 mg/dL (7-20) Creatinine 0.8 mg/dL (0.6-1.0) Estimated GFR (Cockcroft-Gault) 87.4 BUN/Creatinine Ratio 28 (6-20) Glucose Level 104 mg/dL (70-99) Calcium Level 9.6 mg/dL (8.5-10.1) Total Bilirubin 0.3 mg/dL (0.2-1.0) Aspartate Amino Transf (AST/SGOT) 20 U/L (15-37) Alanine Aminotransferase (ALT/SGPT) 32 U/L (14-59) Alkaline Phosphatase 89 U/L (46-116) Troponin I Quantitative 0.017 ng/mL (0.000-0.055) < 0.017 ng/mL (0.000-0.055) Total Protein 7.7 g/dL (6.4-8.2) Albumin 3.3 g/dL (3.4-5.0) Albumin/Globulin Ratio 0.8 (1.0-1.7) White Blood Count 8.5 x10^3/uL (4.0-11.0) Red Blood Count 4.38 x10^6/uL (3.50-5.40) Hemoglobin 11.6 g/dL (12.0-15.5) Hematocrit 36.5 % (36.0-47.0) Mean Corpuscular Volume 83 fL (79-100) Mean Corpuscular Hemoglobin 26 pg (25-35) Mean Corpuscular Hemoglobin Concent 32 g/dL (31-37) Red Cell Distribution Width 16.4 % (11.5-14.5) Platelet Count 407 x10^3/uL (140-400) Neutrophils (%) (Auto) 69 % (31-73) Lymphocytes (%) (Auto) 21 % (24-48) Monocytes (%) (Auto) 9 % (0-9) Eosinophils (%) (Auto) 1 % (0-3) Basophils (%) (Auto) 1 % (0-3) Neutrophils # (Auto) 5.9 x10^3uL (1.8-7.7) Lymphocytes # (Auto) 1.8 x10^3/uL (1.0-4.8) Monocytes # (Auto) 0.7 x10^3/uL (0.0-1.1) Eosinophils # (Auto) 0.1 x10^3/uL (0.0-0.7) Basophils # (Auto) 0.0 x10^3/uL (0.0-0.2) Glucose (Fingerstick) 102 mg/dL (70-99) Test 05/17/18 04:30 05/17/18 07:25 05/17/18 08:11 Sodium Level 136 mmol/L (136-145) Potassium Level 3.8 mmol/L (3.5-5.1) Chloride Level 96 mmol/L (98-107) Carbon Dioxide Level 27 mmol/L (21-32) Anion Gap 13 (6-14) Blood Urea Nitrogen 22 mg/dL (7-20) Creatinine 0.9 mg/dL (0.6-1.0) Estimated GFR (Cockcroft-Gault) 76.3 BUN/Creatinine Ratio 24 (6-20) Glucose Level 144 mg/dL (70-99) Calcium Level 9.4 mg/dL (8.5-10.1) Total Bilirubin 0.3 mg/dL (0.2-1.0) Aspartate Amino Transf (AST/SGOT) 25 U/L (15-37) Alanine Aminotransferase (ALT/SGPT) 29 U/L (14-59) Alkaline Phosphatase 82 U/L (46-116) Troponin I Quantitative < 0.017 ng/mL (0.000-0.055) Total Protein 7.9 g/dL (6.4-8.2) Albumin 3.1 g/dL (3.4-5.0) Albumin/Globulin Ratio 0.6 (1.0-1.7) White Blood Count 7.5 x10^3/uL (4.0-11.0) Red Blood Count 4.24 x10^6/uL (3.50-5.40) Hemoglobin 11.3 g/dL (12.0-15.5) Hematocrit 35.4 % (36.0-47.0) Mean Corpuscular Volume 84 fL (79-100) Mean Corpuscular Hemoglobin 27 pg (25-35) Mean Corpuscular Hemoglobin Concent 32 g/dL (31-37) Red Cell Distribution Width 16.3 % (11.5-14.5) Platelet Count 395 x10^3/uL (140-400) Neutrophils (%) (Auto) 68 % (31-73) Lymphocytes (%) (Auto) 21 % (24-48) Monocytes (%) (Auto) 9 % (0-9) Eosinophils (%) (Auto) 1 % (0-3) Basophils (%) (Auto) 0 % (0-3) Neutrophils # (Auto) 5.1 x10^3uL (1.8-7.7) Lymphocytes # (Auto) 1.6 x10^3/uL (1.0-4.8) Monocytes # (Auto) 0.7 x10^3/uL (0.0-1.1) Eosinophils # (Auto) 0.1 x10^3/uL (0.0-0.7) Basophils # (Auto) 0.0 x10^3/uL (0.0-0.2) RS-Cen-V-Type Natriuretic Peptide 769 pg/mL (0-124) Glucose (Fingerstick) 127 mg/dL (70-99) Assessment/Plan Assessment/Plan 1. Chest pain and dyspnea on exertion in a patient with known history of coronary artery disease s/p CABG, concerning for unstable angina. Myocardial infarction has been ruled out. We will proceed with cardiac catheterization and possible angioplasty. Risks and benefits were explained and she is agreeable. 2. Acute on chronic diastolic heart failure: 2-D echo in February 2018 showed normal LV function with EF 50-55%. Continue gentle diuresis with Lasix. 3. Hypertension: Better controlled since admission. Continue current medical regimen. 4. Hyperlipidemia: Continue statin therapy 5. Sick sinus syndrome s/p permanent pacemaker implantation, stable Thank you for your consultation MISBAH HUFFMAN MD May 17, 2018 09:52
[2018-05-17 11:00] VITALS: BP 112/42
--- NOTE | 2018-05-17 11:29 | EKG ---
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
[2018-05-17 15:00] VITALS: BP 118/41
[2018-05-17] MEDS: oxyCODONE/APAP 10/325 1 TAB TABLET PO PRN ×2 (18:44→23:00)
[2018-05-17 19:00] VITALS: BP 134/50
[2018-05-17] MEDS: ATORVASTATIN CALCIUM 20 MG TABLET PO SCH (21:29)
[2018-05-17] MEDS: ZOLPIDEM 5 MG TABLET. PO SCH (21:29)
[2018-05-17 23:00] VITALS: BP 122/46
[2018-05-18] VITALS (12 sets, daily range): BP systolic 82–143; BP diastolic 25–64
[2018-05-18] MEDS: MORPHINE SULFATE 4 MG/ML VIAL. IV PRN ×2 (02:10→06:22)
[2018-05-18] MEDS: IPRATRPIUM/ALBUTEROL 0.5/2.5MG 3 ML NEBU. NEB SCH ×2 (07:38→19:46)
[2018-05-18] MEDS: GLIMEPIRIDE 2 MG TABLET. PO SCH (08:00)
[2018-05-18] MEDS: INSULIN LISPRO 300 UNITS/3 ML INSULN.PEN. SQ SCH ×4 (08:00→20:49)
[2018-05-18] MEDS: FUROSEMIDE 40 MG/4 ML VIAL. IVP SCH ×2 (09:00→14:53)
[2018-05-18] MEDS: CLOPIDOGREL BISULFATE 75 MG TABLET PO SCH (09:00)
[2018-05-18] MEDS: ASPIRIN ENTERIC COATED 81 MG TABLET.DR. PO SCH (09:00)
[2018-05-18] MEDS: FAMOTIDINE 20 MG TABLET. PO SCH ×2 (09:00→20:48)
[2018-05-18] MEDS: FERROUS SULFATE 325 MG TABLET. PO SCH (09:00)
[2018-05-18] MEDS: oxyCODONE/APAP 10/325 1 TAB TABLET PO PRN ×3 (09:00→20:49)
[2018-05-18] MEDS: POTASSIUM CHLORIDE 10 MEQ TABLET.ER. PO SCH ×2 (09:01→18:13)
[2018-05-18] MEDS: LOSARTAN POTASSIUM 50 MG TABLET. PO SCH (09:01)
[2018-05-18] MEDS: FLUoxetine HCL 20 MG CAPSULE PO SCH (09:01)
[2018-05-18] MEDS: CALCIUM CARB/VIT D3 500/200 TABLET. PO SCH (09:01)
[2018-05-18] MEDS: amLODIPine BESYLATE 10 MG TABLET PO SCH (09:02)
[2018-05-18] MEDS: METOPROLOL SUCC 24HR ER 50 MG TAB.ER.24H. PO SCH (09:02)
[2018-05-18 09:29] LABS: PROTHROMBIN TIME PATIENT 16.8 SEC (11.7-14.0)
[2018-05-18] MEDS ORDERED: IOHEXOL 300 MG/ML 100ML VIAL. ONE ×2 (09:56→10:59)
[2018-05-18] MEDS ORDERED: LIDOCAINE 1% Multi-Dose 20 ML VIAL. ONE (09:56)
--- NOTE | 2018-05-18 10:20 | NUR ---
SW following pt for anticipated dc needs. Chart reviewed and DW RN. Pt lives at home with family and on PRN 02 at home. No SW and skilled needs indicated at this time. Will continue to follow.
[2018-05-18] MEDS ORDERED: MIDAZOLAM HCL/PF 2 MG/2 ML VIAL. ONE (10:29)
[2018-05-18] MEDS ORDERED: fentaNYL PF VIAL 100 MCG/2 ML VIAL ONE (10:30)
[2018-05-18] MEDS ORDERED: fentaNYL PF VIAL 100 MCG/2 ML VIAL IV ONE (11:00)
[2018-05-18] MEDS ORDERED: IOHEXOL 300 MG/ML 100ML VIAL. IART ONE (11:00)
[2018-05-18] MEDS ORDERED: MIDAZOLAM HCL/PF 2 MG/2 ML VIAL. IV ONE (11:00)
[2018-05-18] MEDS ORDERED: LIDOCAINE 1% Multi-Dose 20 ML VIAL. INJ ONE (11:00)
--- NOTE | 2018-05-18 11:38 | PDOC ---
PROGRESS NOTES Chief Complaint Chief Complaint 1. Chest pain and dyspnea on exertion in a patient with known history of coronary artery disease s/p CABG, concerning for unstable angina. Myocardial infarction has been ruled out. 2. Acute on chronic diastolic heart failure: 2-D echo in February 2018 showed normal LV function with EF 50-55%. Continue gentle diuresis with Lasix. 3. Hypertension: Better controlled since admission. 4. Hyperlipidemia: Continue statin 5. Sick sinus syndrome s/p permanent pacemaker implantation, stable History of Present Illness History of Present Illness Well-known to me-previous patient of Dr. Arias Out having [facility] by cardiology Plan we'll see after [facility] Vitals Vitals Vital Signs Date Time Temp Pulse Resp B/P (MAP) Pulse Ox O2 Delivery O2 Flow Rate FiO2 05/18/18 11:10 60 12 96 Nasal Cannula 2.0 05/18/18 09:02 142/62 05/18/18 07:00 97.8 97.8 Physical Exam General: Alert, Oriented X3, Cooperative, No acute distress Heart: Regular rate Lungs: Clear, Crackles Abdomen: Normal bowel sounds, Soft, No tenderness, No hepatosplenomegaly, No masses Extremities: No clubbing, No cyanosis, No edema, Normal pulses, No tenderness/ swelling Skin: No rashes, No breakdown, No significant lesion Labs LABS Laboratory Tests Test 05/17/18 11:59 05/17/18 16:55 05/17/18 20:50 05/18/18 07:46 Glucose (Fingerstick) 111 mg/dL (70-99) 78 mg/dL (70-99) 165 mg/dL (70-99) 112 mg/dL (70-99) Test 05/18/18 08:35 Prothrombin Time 16.8 SEC (11.7-14.0) Prothromb Time International Ratio 1.4 (0.8-1.1) Review of Systems Review of Systems Out having [facility] Comment Review of Relevant I have reviewed the following items nolan (where applicable) has been applied. Labs Laboratory Tests Test 05/16/18 19:35 05/16/18 20:49 05/16/18 23:08 05/17/18 02:00 Prothrombin Time 19.0 SEC (11.7-14.0) Prothromb Time International Ratio 1.6 (0.8-1.1) D-Dimer (Anila) 0.92 ug/mlFEU (0.00-0.50) Sodium Level 139 mmol/L (136-145) Potassium Level 3.7 mmol/L (3.5-5.1) Chloride Level 98 mmol/L (98-107) Carbon Dioxide Level 32 mmol/L (21-32) Anion Gap 9 (6-14) Blood Urea Nitrogen 22 mg/dL (7-20) Creatinine 0.8 mg/dL (0.6-1.0) Estimated GFR (Cockcroft-Gault) 87.4 BUN/Creatinine Ratio 28 (6-20) Glucose Level 104 mg/dL (70-99) Calcium Level 9.6 mg/dL (8.5-10.1) Total Bilirubin 0.3 mg/dL (0.2-1.0) Aspartate Amino Transf (AST/SGOT) 20 U/L (15-37) Alanine Aminotransferase (ALT/SGPT) 32 U/L (14-59) Alkaline Phosphatase 89 U/L (46-116) Troponin I Quantitative 0.017 ng/mL (0.000-0.055) < 0.017 ng/mL (0.000-0.055) Total Protein 7.7 g/dL (6.4-8.2) Albumin 3.3 g/dL (3.4-5.0) Albumin/Globulin Ratio 0.8 (1.0-1.7) White Blood Count 8.5 x10^3/uL (4.0-11.0) Red Blood Count 4.38 x10^6/uL (3.50-5.40) Hemoglobin 11.6 g/dL (12.0-15.5) Hematocrit 36.5 % (36.0-47.0) Mean Corpuscular Volume 83 fL (79-100) Mean Corpuscular Hemoglobin 26 pg (25-35) Mean Corpuscular Hemoglobin Concent 32 g/dL (31-37) Red Cell Distribution Width 16.4 % (11.5-14.5) Platelet Count 407 x10^3/uL (140-400) Neutrophils (%) (Auto) 69 % (31-73) Lymphocytes (%) (Auto) 21 % (24-48) Monocytes (%) (Auto) 9 % (0-9) Eosinophils (%) (Auto) 1 % (0-3) Basophils (%) (Auto) 1 % (0-3) Neutrophils # (Auto) 5.9 x10^3uL (1.8-7.7) Lymphocytes # (Auto) 1.8 x10^3/uL (1.0-4.8) Monocytes # (Auto) 0.7 x10^3/uL (0.0-1.1) Eosinophils # (Auto) 0.1 x10^3/uL (0.0-0.7) Basophils # (Auto) 0.0 x10^3/uL (0.0-0.2) Glucose (Fingerstick) 102 mg/dL (70-99) Test 05/17/18 04:30 05/17/18 07:25 05/17/18 08:11 05/17/18 11:59 Sodium Level 136 mmol/L (136-145) Potassium Level 3.8 mmol/L (3.5-5.1) Chloride Level 96 mmol/L (98-107) Carbon Dioxide Level 27 mmol/L (21-32) Anion Gap 13 (6-14) Blood Urea Nitrogen 22 mg/dL (7-20) Creatinine 0.9 mg/dL (0.6-1.0) Estimated GFR (Cockcroft-Gault) 76.3 BUN/Creatinine Ratio 24 (6-20) Glucose Level 144 mg/dL (70-99) Calcium Level 9.4 mg/dL (8.5-10.1) Total Bilirubin 0.3 mg/dL (0.2-1.0) Aspartate Amino Transf (AST/SGOT) 25 U/L (15-37) Alanine Aminotransferase (ALT/SGPT) 29 U/L (14-59) Alkaline Phosphatase 82 U/L (46-116) Troponin I Quantitative < 0.017 ng/mL (0.000-0.055) Total Protein 7.9 g/dL (6.4-8.2) Albumin 3.1 g/dL (3.4-5.0) Albumin/Globulin Ratio 0.6 (1.0-1.7) White Blood Count 7.5 x10^3/uL (4.0-11.0) Red Blood Count 4.24 x10^6/uL (3.50-5.40) Hemoglobin 11.3 g/dL (12.0-15.5) Hematocrit 35.4 % (36.0-47.0) Mean Corpuscular Volume 84 fL (79-100) Mean Corpuscular Hemoglobin 27 pg (25-35) Mean Corpuscular Hemoglobin Concent 32 g/dL (31-37) Red Cell Distribution Width 16.3 % (11.5-14.5) Platelet Count 395 x10^3/uL (140-400) Neutrophils (%) (Auto) 68 % (31-73) Lymphocytes (%) (Auto) 21 % (24-48) Monocytes (%) (Auto) 9 % (0-9) Eosinophils (%) (Auto) 1 % (0-3) Basophils (%) (Auto) 0 % (0-3) Neutrophils # (Auto) 5.1 x10^3uL (1.8-7.7) Lymphocytes # (Auto) 1.6 x10^3/uL (1.0-4.8) Monocytes # (Auto) 0.7 x10^3/uL (0.0-1.1) Eosinophils # (Auto) 0.1 x10^3/uL (0.0-0.7) Basophils # (Auto) 0.0 x10^3/uL (0.0-0.2) EM-Apn-X-Type Natriuretic Peptide 769 pg/mL (0-124) Glucose (Fingerstick) 127 mg/dL (70-99) 111 mg/dL (70-99) Test 05/17/18 16:55 05/17/18 20:50 05/18/18 07:46 05/18/18 08:35 Glucose (Fingerstick) 78 mg/dL (70-99) 165 mg/dL (70-99) 112 mg/dL (70-99) Prothrombin Time 16.8 SEC (11.7-14.0) Prothromb Time International Ratio 1.4 (0.8-1.1) Laboratory Tests Test 05/17/18 11:59 05/17/18 16:55 05/17/18 20:50 05/18/18 07:46 Glucose (Fingerstick) 111 mg/dL (70-99) 78 mg/dL (70-99) 165 mg/dL (70-99) 112 mg/dL (70-99) Test 05/18/18 08:35 Prothrombin Time 16.8 SEC (11.7-14.0) Prothromb Time International Ratio 1.4 (0.8-1.1) Medications Current Medications Fentanyl Citrate (Fentanyl 2ml Vial) 50 mcg 1X ONCE IV Last administered on at 19:31; Start 05/16/18 at 19:00; Stop 05/16/18 at 19:01; Status DC Ondansetron HCl (Zofran) 4 mg 1X ONCE IV Last administered on 05/16/18at 19:31 ; Start 05/16/18 at 19:00; Stop 05/16/18 at 19:01; Status DC Fentanyl Citrate (Fentanyl 2ml Vial) 75 mcg 1X ONCE IV Last administered on at 20:25; Start 05/16/18 at 20:15; Stop 05/16/18 at 20:17; Status DC Iohexol (Omnipaque 350 Mg/ml) 100 ml 1X ONCE IV Last administered on at 22:09; Start 05/16/18 at 21:30; Stop 05/16/18 at 21:31; Status DC Info (CONTRAST GIVEN -- Rx MONITORING) 1 each PRN DAILY PRN MC SEE COMMENTS; Start 05/16/18 at 21:30; Stop 05/18/18 at 21:29 Ketorolac Tromethamine (Toradol 15mg Vial) 15 mg 1X ONCE IV Last administered on 05/16/18at 22:03; Start 05/16/18 at 21:45; Stop 05/16/18 at 21:46; Status DC Ondansetron HCl (Zofran) 4 mg PRN Q8HRS PRN IV NAUSEA/VOMITING; Start 05/16/18 at 23:00; Stop 05/17/18 at 22:59; Status DC Albuterol/ Ipratropium (Duoneb) 3 ml RTQID NEB Last administered on 05/17/18at 11:54; Start 05/17/18 at 08:00; Stop 05/17/18 at 15:53; Status DC Insulin Human Lispro (HumaLOG) 0-7 UNITS TIDWMEALHC SQ ; Start 05/17/18 at 08:00 Dextrose (Dextrose 50%-Water Syringe) 12.5 gm PRN Q15MIN PRN IV SEE COMMENTS; Start 05/16/18 at 23:45 Morphine Sulfate (Morphine Sulfate) 4 mg PRN Q4HRS PRN IV PAIN Last administered on 05/18/18 06:22; Start 05/16/18 at 23:45 Zolpidem Tartrate (Ambien) 5 mg PRN QHS PRN PO INSOMNIA Last administered on 23:54; Start 05/16/18 at 23:45 Amlodipine Besylate (Norvasc) 10 mg DAILY PO Last administered on 05/18/18 09: 02; Start 05/17/18 at 09:00 Aspirin (Ecotrin) 81 mg DAILY PO Last administered on 05/18/18 09:00; Start at 09:00 Atorvastatin Calcium (Lipitor) 20 mg HS PO Last administered on 05/17/18 21:29 ; Start 05/17/18 at 21:00 Calcium/Vitamin D (Oscal D 500mg/ 200uts) 1 tab DAILY PO Last administered on 09:01; Start 05/17/18 at 09:00 Clonazepam (KlonoPIN) 0.5 mg PRN TID PRN PO anxiety; Start 05/17/18 at 08:00 Clopidogrel Bisulfate (Plavix) 75 mg DAILY PO Last administered on 05/18/18 09 :00; Start 05/17/18 at 09:00 Famotidine (Pepcid) 20 mg BID PO Last administered on 05/18/18 09:00; Start at 09:00 Ferrous Sulfate (Feosol) 325 mg DAILY PO Last administered on 05/18/18 09:00; Start 05/17/18 at 09:00 Fluoxetine HCl (PROzac) 20 mg DAILY PO Last administered on 05/18/18 09:01; Start 05/17/18 at 09:00 Glimepiride (Amaryl) 2 mg DAILYWBKFT PO Last administered on 05/17/18 08:46; Start 05/17/18 at 09:00 Nitroglycerin (Nitrostat) 0.4 mg PRN Q5MIN PRN SL CHEST PAIN; Start 05/17/18 at 08:00 Oxycodone/ Acetaminophen (Percocet 10/325) 0.5 tab PRN Q6HRS PRN PO PAIN Last administered on 05/17/18 08:47; Start 05/17/18 at 08:00; Stop 05/17/18 at 10:37 ; Status DC Potassium Chloride (Klor-Con) 10 meq BIDWMEALS PO Last administered on 09:01; Start 05/17/18 at 09:00 Zolpidem Tartrate (Ambien) 5 mg QHS PO Last administered on 05/17/18 21:29; Start 05/17/18 at 21:00 Albuterol Sulfate (Ventolin Neb Soln) 2.5 mg PRN Q6HRS PRN NEB SHORTNESS OF BREATH; Start 05/17/18 at 08:15 Losartan Potassium (Cozaar) 100 mg DAILY PO Last administered on 05/18/18 09: 01; Start 05/17/18 at 09:00 Metoprolol Succinate (Toprol Xl) 50 mg DAILY PO Last administered on 05/18/18 09:02; Start 05/17/18 at 09:00 Furosemide (Lasix) 40 mg BID92 IVP Last administered on 05/17/18 14:04; Start 05/17/18 at 09:00 Oxycodone/ Acetaminophen (Percocet 10/325) 1 tab PRN Q6HRS PRN PO PAIN Last administered on 05/17/18 14:05; Start 05/17/18 at 10:30; Stop 05/17/18 at 18:28 ; Status DC Albuterol/ Ipratropium (Duoneb) 3 ml RTBID NEB Last administered on 05/18/18 07:38; Start 05/17/18 at 20:00 Oxycodone/ Acetaminophen (Percocet 10/325) 1 tab PRN Q4HRS PRN PO PAIN Last administered on 05/18/18 09:00; Start 05/17/18 at 18:30 Iohexol (Omnipaque 300 Mg/ml) 100 ml STK-MED ONCE .ROUTE ; Start 05/18/18 at 09: 56; Stop 05/18/18 at 09:57; Status DC Lidocaine HCl (Lidocaine 1% 20ml Vial) 20 ml STK-MED ONCE .ROUTE ; Start at 09:56; Stop 05/18/18 at 09:57; Status DC Heparin Sodium/ Sodium Chloride 500 ml @ As Directed STK-MED ONCE .ROUTE ; Start 05/18/18 at 09:56; Stop 05/18/18 at 09:57; Status DC Midazolam HCl (Versed) 2 mg STK-MED ONCE .ROUTE ; Start 05/18/18 at 10:29; Stop 05/18/18 at 10:30; Status DC Fentanyl Citrate (Fentanyl 2ml Vial) 100 mcg STK-MED ONCE .ROUTE ; Start at 10:30; Stop 05/18/18 at 10:31; Status DC Heparin Sodium/ Sodium Chloride (HEPARIN for ARTERIAL LINE FLUSH) 1,000 unit 1X ONCE IART Last administered on 05/18/18at 11:00; Start 05/18/18 at 11:00; Stop 05/18/18 at 11:01; Status DC Midazolam HCl (Versed) 2 mg 1X ONCE IV Last administered on 05/18/18at 11:00; Start 05/18/18 at 11:00; Stop 05/18/18 at 11:01; Status DC Fentanyl Citrate (Fentanyl 2ml Vial) 100 mcg 1X ONCE IV Last administered on at 11:00; Start 05/18/18 at 11:00; Stop 05/18/18 at 11:01; Status DC Iohexol (Omnipaque 300 Mg/ml) 100 ml 1X ONCE IART Last administered on at 11:00; Start 05/18/18 at 11:00; Stop 05/18/18 at 11:01; Status DC Lidocaine HCl (Lidocaine 1% 20ml Vial) 20 ml 1X ONCE INJ Last administered on 05/18/18at 11:00; Start 05/18/18 at 11:00; Stop 05/18/18 at 11:01; Status DC Iohexol (Omnipaque 300 Mg/ml) 100 ml STK-MED ONCE .ROUTE ; Start 05/18/18 at 10: 59; Stop 05/18/18 at 11:00; Status DC Active Scripts Active Amaryl (Glimepiride) 2 Mg Tablet 2 Mg PO DAILY 30 Days Reported Percocet 10-325 Mg Tablet (Oxycodone/Acetaminophen) 1 Each Tablet 2 Tab PO PRN Q4-6HRS PRN Calcium 500 + Vit D 200 Caplet (Calcium Carbonate/Vitamin D3) 1 Each Tablet 1 Each PO DAILY Zolpidem Tartrate 5 Mg Tablet 5 Mg PO QHS Clonazepam 0.5 Mg Tablet 0.5 Mg PO TID Fluoxetine Hcl 20 Mg Capsule 1 Cap PO DAILY Amlodipine Besylate 10 Mg Tablet 10 Mg PO DAILY Famotidine 20 Mg Tablet 20 Mg PO BID Losartan Potassium 100 Mg Tablet 100 Mg PO DAILY Furosemide 80 Mg Tablet 80 Mg PO TID Albuterol Sulfate Conc Neb Soln (Albuterol Sulfate) 2.5 Mg/0.5 Ml Vial.neb 5 Mg NEB PRN PRN Metoprolol Tartrate 25 Mg Tablet 1 Tab PO BID Ferrous Sulfate 325 Mg Tablet 1 Tab PO DAILY NITROGLYCERIN SubLingual (Nitroglycerin) 0.4 Mg Tab.subl 0.4 Mg SL PRN Q5MIN PRN Atorvastatin Calcium 20 Mg Tablet 20 Mg PO HS Potassium Chloride 10 Meq Capsule.er 10 Meq PO BID Aspir 81 (Aspirin) 81 Mg Tablet. 1 Tab PO DAILY Clopidogrel (Clopidogrel Bisulfate) 75 Mg Tablet 1 Tab PO DAILY Vitals/I & O Vital Sign - Last 24 Hours 05/17/18 05/17/18 05/17/18 05/17/18 11:55 14:05 15:00 15:28 Temp 97.9 97.9 Pulse 59 Resp 16 B/P (MAP) 118/41 (66) Pulse Ox 98 96 98 O2 Delivery Nasal Cannula Room Air Nasal Cannula Room Air O2 Flow Rate 3.0 3.0 3.0 3.0 05/17/18 05/17/18 05/17/18 05/17/18 18:44 18:56 19:00 20:15 Temp 98.0 98.0 Pulse 60 Resp 18 B/P (MAP) 134/50 (78) Pulse Ox 98 98 97 O2 Delivery Room Air Nasal Cannula Nasal Cannula Nasal Cannula O2 Flow Rate 3.0 3.0 3.0 3.0 05/17/18 05/17/18 05/18/18 05/18/18 23:00 23:00 02:10 03:00 Temp 98.3 98.2 98.3 98.2 Pulse 60 59 Resp 18 18 B/P (MAP) 122/46 (71) 126/45 (72) Pulse Ox 99 99 O2 Delivery Room Air Nasal Cannula Room Air Nasal Cannula O2 Flow Rate 3.0 3.0 3.0 05/18/18 05/18/18 05/18/18 05/18/18 06:22 07:00 07:25 07:39 Temp 97.8 97.8 Pulse 88 Resp 16 B/P (MAP) 142/62 (88) Pulse Ox 100 99 100 O2 Delivery Nasal Cannula Nasal Cannula Nasal Cannula Nasal Cannula O2 Flow Rate 3.0 3.0 3.0 3.0 05/18/18 05/18/18 05/18/18 05/18/18 08:00 09:00 09:01 09:02 Pulse 88 88 B/P (MAP) 142/62 142/62 Pulse Ox 100 O2 Delivery Room Air Nasal Cannula O2 Flow Rate 3.0 3.0 05/18/18 05/18/18 05/18/18 05/18/18 09:02 10:07 11:00 11:10 Pulse 88 60 Resp 14 12 B/P (MAP) 142/62 Pulse Ox 100 96 96 O2 Delivery Nasal Cannula Nasal Cannula Nasal Cannula O2 Flow Rate 3.0 2.0 2.0 Intake and Output 05/17/18 05/17/18 05/18/18 15:00 23:00 07:00 Intake Total 480 ml 160 ml Balance 480 ml 160 ml CATHIE KNIGHT MD May 18, 2018 11:38
--- NOTE | 2018-05-18 12:05 | PDOC ---
MODERATE SEDATION ASSESSMENT RISKS/ALTERNATIVES Risks/Alternatives Risks and alternatives of this type of sedation and procedure discussed with: RISK/ALTERNATIVES: Patient H & P ON CHART H & P H & P on chart and reviewed for co-morbid conditions and appropriate labs. H&P ON CHART: Yes STATUS PREG STATUS ASSESSED: N/A MEDS/ALLERGIES REVIEWED Meds/Allergies Reviewed Medications and Allergies including time and route of recently administered narcotics and sedatives. MEDS/ALLERGIES REVIEWED: Yes ASA RATING ASA RATING: III AIRWAY ASSESSMENT Airway Assessment Airway patency, oral function limitations, presence of caps, crowns, dentures, partials, and ability to extend neck assessed. AIRWAY ASSESSMENT: Yes MALLAMPATI SCORE MALLAMPATI SCORE: II PRE-SEDATION ASSESSMENT PRE-SEDATION ASSESSMENT: Yes MISBAH HUFFMAN MD May 18, 2018 12:05
--- NOTE | 2018-05-18 12:25 | CARD ---
MR#: [id number] Date of Study: 05/18/2018 Ordering Physician: MISBAH HUFFMAN, Referring Physician: VENKAT ALEJANDRO Tech: RT Elva (R) APPROVED REPORT Technologist: RT Elva (R) Nurse: patti hua RN Procedure(s) performed: Left heart catheterization, selective coronary angiography, selective angiogr aphy of the bypass grafts and left ventriculography Moderate sedation: 28 minutes INDICATION The indication(s) include : unstable angina . CS Clinical Frailty Scale [facility] Clinical Frailty Scale: Managing Well Heart Failure Heart Failure: Yes If Yes, Newly Diagnosed: No If Yes, HF Type: Systolic If Yes, NYHA Class: Class III PROCEDURE NARRATIVE After explaining the risks, benefits and alternative options, informed consent was obtained from raghavendra ent. Patient was brought to the cardiac Clinical Recruiter and her right groin prepped and draped in the usual fashion. 20 mL of 2% lidocaine was infiltrated into the skin and subcutaneous tissues for local anest hesia. Arterial access was obtained in the right common femoral artery and a 6 Malaysian sheath was inse rted. 6 Malaysian JL4 and 6 Malaysian JR4 catheters placed to perform selective angiography of the left and right coronary arteries. The 6 Malaysian JR4 catheter was then used to perform selective angiography of the saphenous vein graft to the obtuse marginal branch and the left internal mammary artery graft to the left anterior descending artery. Finally, a 6 Malaysian pigtail catheter was used to perform left v entriculography. Patient tolerated the procedure well. Hemostasis was achieved using Angio-Seal. Ther e were no immediate complications. The following findings were noted. FINDINGS 1. Hemodynamics: Left ventricular end-diastolic pressure 20 mmHg. No pullback gradient across the a ortic valve. 2. Left ventriculography: Akinetic distal anterior wall and the entire apical wall with ejection fr action estimated at 40%. No significant mitral regurgitation was seen. 3. Coronary and bypass graft angiography: a. The left main coronary artery arose from the left sinus of Valsalva, gave rise to the left anteri or descending and left circumflex arteries and did not show any significant stenosis. b. The left anterior descending artery did not show any significant stenosis. c. The left circumflex artery showed 40% stenosis involving the proximal segment of the obtuse pilo nal branch. d. The right coronary artery was a large and dominant vessel arising from the right sinus of Valsalv a that did not show any significant stenosis. e. The saphenous vein graft to the obtuse marginal branch was widely patent. d. The left internal mammary artery graft to the left anterior descending artery was patent. Conclusion 1. 40% stenosis involving the obtuse marginal branch of left circumflex artery without any other sign ificant stenoses. The left internal mammary artery graft to the left anterior descending artery and t he saphenous vein graft to the obtuse marginal branch were patent. Of note, patient seems to have palomares d CABG for thrombus in left main coronary artery and left anterior descending artery in the past. No lesions were noted because the thrombus resolved. 2. Akinetic distal anterior wall and the entire apical wall with ejection fraction estimated at 40%. Recommendations Medical Therapy Signed by : Misbah Huffman, Electronically Approved : 05/18/2018 12:25:07
[2018-05-18] MEDS: ATORVASTATIN CALCIUM 20 MG TABLET PO SCH (20:48)
[2018-05-18] MEDS: ZOLPIDEM 5 MG TABLET. PO SCH (20:48)
[2018-05-19] MEDS: oxyCODONE/APAP 10/325 1 TAB TABLET PO PRN ×6 (00:50→23:22)
[2018-05-19 03:09] VITALS: BP 140/50
[2018-05-19 07:00] VITALS: BP 131/51
[2018-05-19] MEDS: INSULIN LISPRO 300 UNITS/3 ML INSULN.PEN. SQ SCH ×4 (08:00→20:50)
[2018-05-19] MEDS: IPRATRPIUM/ALBUTEROL 0.5/2.5MG 3 ML NEBU. NEB SCH ×2 (08:00→19:30)
[2018-05-19] MEDS ORDERED: OXYC1TAB22 PO (09:13)
[2018-05-19] MEDS ORDERED: METO50TA4 PO (09:13)
[2018-05-19] MEDS: amLODIPine BESYLATE 10 MG TABLET PO SCH (09:56)
[2018-05-19] MEDS: CALCIUM CARB/VIT D3 500/200 TABLET. PO SCH (09:56)
[2018-05-19] MEDS: ASPIRIN ENTERIC COATED 81 MG TABLET.DR. PO SCH (09:56)
[2018-05-19] MEDS: LOSARTAN POTASSIUM 50 MG TABLET. PO SCH (09:57)
[2018-05-19] MEDS: GLIMEPIRIDE 2 MG TABLET. PO SCH (09:57)
[2018-05-19] MEDS: FUROSEMIDE 40 MG TABLET. PO SCH ×2 (09:58→18:28)
[2018-05-19] MEDS: POTASSIUM CHLORIDE 10 MEQ TABLET.ER. PO SCH ×2 (09:58→18:28)
[2018-05-19] MEDS: FAMOTIDINE 20 MG TABLET. PO SCH ×2 (09:58→20:45)
[2018-05-19] MEDS: CLOPIDOGREL BISULFATE 75 MG TABLET PO SCH (09:58)
[2018-05-19] MEDS: FERROUS SULFATE 325 MG TABLET. PO SCH (10:01)
[2018-05-19] MEDS: FLUoxetine HCL 20 MG CAPSULE PO SCH (10:01)
[2018-05-19] MEDS: METOPROLOL SUCC 24HR ER 50 MG TAB.ER.24H. PO SCH (10:01)
[2018-05-19 11:00] VITALS: BP 137/42
--- NOTE | 2018-05-19 12:47 | PDOC3 ---
Discharge Summary Visit Information Date of Admission: May 16, 2018 Date of Discharge: May 19, 2018 Admitting Diagnosis Comment: 1. Chest pain and dyspnea - clean cath 05/18/18 2. Acute on chronic diastolic heart failure: 2-D echo in February 2018 showed normal LV function with EF 50-55%. Continue gentle diuresis with Lasix. 3. Hypertension: Better controlled since admission. 4. Hyperlipidemia: Continue statin 5. Sick sinus syndrome s/p permanent pacemaker implantation, stable Brief Hospital Course Allergies Allergies Coded Allergies Type Severity Reaction Last Updated Verified ibuprofen Adverse Reaction Intermediate Nausea and Vomiting 12/02/17 Yes Vital Signs Vital Signs Date Time Temp Pulse Resp B/P (MAP) Pulse Ox O2 Delivery O2 Flow Rate FiO2 05/19/18 11:00 98.4 60 18 137/42 (73) 93 Room Air 98.4 05/19/18 07:00 3.0 Lab Results Laboratory Tests Test 05/17/18 16:55 05/17/18 20:50 05/18/18 07:46 05/18/18 08:35 Glucose (Fingerstick) 78 mg/dL (70-99) 165 mg/dL (70-99) 112 mg/dL (70-99) Prothrombin Time 16.8 SEC (11.7-14.0) Prothromb Time International Ratio 1.4 (0.8-1.1) Test 05/18/18 12:00 05/18/18 16:47 05/18/18 20:30 05/19/18 07:25 Glucose (Fingerstick) 111 mg/dL (70-99) 131 mg/dL (70-99) 126 mg/dL (70-99) 112 mg/dL (70-99) Test 05/19/18 11:16 Glucose (Fingerstick) 128 mg/dL (70-99) Laboratory Tests Test 05/18/18 16:47 05/18/18 20:30 05/19/18 07:25 05/19/18 11:16 Glucose (Fingerstick) 131 mg/dL (70-99) 126 mg/dL (70-99) 112 mg/dL (70-99) 128 mg/dL (70-99) Brief Hospital Course Ms. 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 Almost monthly or twice a month she gets admitted. Previously a patient of Dr. Arias, she does have history of CAD but that has been quiescent and other cardiac tests she has done are negative. This time she had an [facility] and now is clean. Patient is requesting to stay, lots of back pain, achy pains all over. Has been a while since she was seen by physiatry. I did consult physiatry. But most that he will still be able to discharge later after physiatry consult. Obese, would feel better if she would lose weight Consults performed cards, physiatry Procedures performed [facility] 05/18/18 clean Discharge Information Condition at Discharge: Improved, Stable Disposition/Orders: D/C to Home w/ HH Scheduled Amlodipine Besylate (Amlodipine Besylate) 10 Mg Tablet, 10 MG PO DAILY for htn, (Reported) Entered as Reported by: KENNEY YANG on 05/16/182321 Last Action: Continued on 05/17/18 0800 by VENKAT ALEJANDRO MD Aspirin (Aspir 81) 81 Mg Tablet., 1 TAB PO DAILY, #30 Ref 5 (Reported) Entered as Reported by: FIFI WALSH on 10/28/16 105 Last Action: Continued on 05/17/18 0800 by VENKAT ALEJANDRO MD Atorvastatin Calcium (Atorvastatin Calcium) 20 Mg Tablet, 20 MG PO HS for FOR CHOLESTEROL, #30 Ref 0 (Reported) Entered as Reported by: FIFI WALSH on 10/28/16 1108 Last Action: Continued on 05/17/18 0800 by VENKAT ALEJANDRO MD Calcium Carbonate/Vitamin D3 (Calcium 500 + Vit D 200 Caplet) 1 Each Tablet, 1 EACH PO DAILY for supplement, (Reported) Entered as Reported by: KENNEY YANG on 05/16/182321 Last Action: Continued on 05/17/18 0800 by VENKAT ALEJANDRO MD Clonazepam (Clonazepam) 0.5 Mg Tablet, 0.5 MG PO TID for anti-anxiety, (Reported ) Entered as Reported by: KENNEY YANG on 05/16/182321 Last Action: Continued on 05/17/18 0800 by VENKAT ALEJANDRO MD Clopidogrel Bisulfate (Clopidogrel) 75 Mg Tablet, 1 TAB PO DAILY, #90 Ref 1 ( Reported) Entered as Reported by: FIFI WALSH on 8/7/17 1058 Last Action: Continued on 05/17/18 0800 by VENKAT ALEJANDRO MD Famotidine (Famotidine) 20 Mg Tablet, 20 MG PO BID for stomach acid, (Reported) Entered as Reported by: KENNEY YANG on 05/16/182321 Last Action: Continued on 05/17/18 0800 by VENKAT ALEJANDRO MD Ferrous Sulfate (Ferrous Sulfate) 325 Mg Tablet, 1 TAB PO DAILY, #30 Ref 3 ( Reported) Entered as Reported by: LOYDA CELAYA on 11/01/16 0014 Last Action: Continued on 05/17/18 0800 by VENKAT ALEJANDRO MD Fluoxetine Hcl (Fluoxetine Hcl) 20 Mg Capsule, 1 CAP PO DAILY for anti- depressent, #90 Ref 1 (Reported) Entered as Reported by: KENNEY YANG on 05/16/182321 Last Action: Continued on 05/17/18 0800 by VENKAT ALEJANDRO MD Furosemide (Furosemide) 80 Mg Tablet, 80 MG PO TID for heart, (Reported) Entered as Reported by: NAM MORTENSEN on 10/09/17 1408 Last Action: HELD on 05/17/18 0759 by VENKAT ALEJANDRO MD Glimepiride (Amaryl) 2 Mg Tablet, 2 MG PO DAILY for 30 Days, #30 Prescribed by: RADHA PIERRE MD on 07/04/17 1010 Last Action: Continued on 05/17/18 0800 by VENKAT ALEJANDRO MD Losartan Potassium (Losartan Potassium) 100 Mg Tablet, 100 MG PO DAILY for HYPERTENSION, (Reported) Entered as Reported by: CARMEN LAN on 03/13/18 1056 Last Action: Converted on 05/17/18 0800 by VENKAT ALEJANDRO MD Metoprolol Succinate (Toprol Xl) 50 Mg Tab.er.24h, 50 MG PO DAILY for htn MDD 1 , #30 Prescribed by: CATHIE KNIGHT on 05/19/18 0913 Metoprolol Tartrate (Metoprolol Tartrate) 25 Mg Tablet, 1 TAB PO BID, #180 Ref 1 (Reported) Entered as Reported by: MAXI MARIA on 07/03/17 1612 Last Action: HELD on 05/17/18 0759 by VENKAT ALEJANDRO MD Potassium Chloride (Potassium Chloride) 10 Meq Capsule.er, 10 MEQ PO BID, ( Reported) Entered as Reported by: FIFI WALSH on 10/28/16 1108 Last Action: Continued on 05/17/18799 by VENKAT ALEJANDRO MD Zolpidem Tartrate (Zolpidem Tartrate) 5 Mg Tablet, 5 MG PO QHS for insomnia, Ref 0 (Reported) Entered as Reported by: KENNEY YANG on 05/16/182321 Last Action: Continued on 05/17/18799 by VENKAT ALEJANDRO MD Scheduled PRN Albuterol Sulfate (Albuterol Sulfate Conc Neb Soln) 2.5 Mg/0.5 Ml Vial.neb, 5 MG NEB PRN PRN for WHEEZING, Ref 0 (Reported) Entered as Reported by: ROMY PHELAN on 10/07/172035 Last Action: Converted on 05/17/18799 by VENKAT ALEJANDRO MD Nitroglycerin (NITROGLYCERIN SubLingual) 0.4 Mg Tab.subl, 0.4 MG SL PRN Q5MIN PRN for CHEST PAIN, (Reported) Entered as Reported by: LOYDA CELAYA on 11/01/16 0013 Last Action: Continued on 05/17/18799 by VENKAT ALEJANDRO MD Oxycodone/Apap 10-325 (Percocet 10-325 Mg Tablet ) 1 Each Tablet, 2 TAB PO PRN Q4-6HRS PRN for PAIN MDD 1, #20 Ref 0 Prescribed by: CATHIE KNIGHT on 05/19/18912 CATHIE KNIGHT MD May 19, 2018 12:47
[2018-05-19] MEDS ORDERED: BUPIVACAINE MPF 0.25% 10 ML VIAL. IJ ONE (14:15)
[2018-05-19] MEDS ORDERED: methylPREDNISolone ACETATE 40 MG/ML VIAL. IM ONE ×2 (14:15)
[2018-05-19 15:22] VITALS: BP 108/54
[2018-05-19 19:00] VITALS: BP 149/53
[2018-05-19] MEDS: ZOLPIDEM 5 MG TABLET. PO SCH (20:45)
[2018-05-19] MEDS: ATORVASTATIN CALCIUM 20 MG TABLET PO SCH (20:45)
[2018-05-19 23:00] VITALS: BP 132/53
--- NOTE | 2018-05-20 02:30 | CONS ---
DATE OF CONSULTATION: 05/19/2018 LOCATION: She is in room 534. ATTENDING PHYSICIAN: Dr. Be. REQUESTING PHYSICIAN: Dr. James. HISTORY OF PRESENT ILLNESS: This is a 63-year-old female known to me. The patient with known hypertension, diabetes mellitus, chronic lower back pain with radiation to her right lower extremity, coronary artery disease status post stenting, coronary artery bypass graft in 2015, also permanent pacemaker insertion, chronic obstructive pulmonary disease, and sick sinus syndrome. She has been using oxygen at 3 liters per minute. The patient also on anticoagulation up to 05/08/2018. She was admitted on 05/16/2018, with increased shortness of breath. She had presented with congestive heart failure with intermittent substernal chest pain prior to hospitalization. Also having increasing dyspnea on exertion and chest pain on exertion for about 3-4 days prior to the hospitalization. The patient discussed the pain as heaviness or pressure rated at 6/10, constant without any radiation. The patient had nitroglycerin prior to the admission without any improvement with her symptoms. She was presented on chest x-ray with cardiomegaly and concern for interstitial edema. BNP elevated. EKG appears to have a right axis deviation, which is new. She has been taking Ambien 10 mg at nighttime and oxycodone 10/325 mg every 6 hours on an as needed basis for pain. PAST MEDICAL HISTORY: Also includes myocardial infarction, hyperlipidemia, peripheral neuropathy, gastroesophageal reflux disease, cholelithiasis, osteoarthritis, chronic renal insufficiency and diabetes mellitus. The patient is status post total knee arthroplasty, hysterectomy, cholecystectomy, appendectomy. FAMILY HISTORY: Diabetes mellitus. ALLERGIES: SHE IS KNOWN ALLERGIC TO IBUPROFEN. SOCIAL HISTORY: She lives with her granddaughter, has stairs for her to manage. She has been using a roller walker to get around. PHYSICAL EXAMINATION: Today revealed a middle-aged female. She is alert, oriented to time, place, person and circumstance and follows commands appropriately, moves all 4 extremities voluntarily where she had 4+/5 grade muscle strength and deep tendon reflexes are decreased overall with absent knee and ankle jerks. She had equal perception of touch and pinprick sensation bilaterally. She had tenderness to palpation over right sacroiliac joint area and right trochanteric bursa. She had pain free range of motion of both hip joints. Straight leg raising test is negative bilaterally. She had painful limited movements of her lumbar spine. She is independent with bed mobility and transfers. I have not tested her ambulation skills at this time. She is using oxygen by nasal cannula. Her skin is intact at this time. ASSESSMENT: A middle-aged female with chronic lower back pain from degenerative disk disease of lumbar vertebrae with right lumbar radiculitis. No clinical evidence of ongoing lumbar radiculopathy with associated right trochanteric bursitis. The patient also with diabetes mellitus with peripheral neuropathy, coronary artery disease, congestive heart failure, hypertension, previous myocardial infarction, hyperlipidemia, chronic obstructive pulmonary disease, oxygen dependent; gastroesophageal reflux disease, cholelithiasis, degenerative joint disease of her knees, status post total knee arthroplasty, chronic renal insufficiency. RECOMMENDATIONS: At her request, I have injected painful right sacroiliac joint and right trochanteric bursa under aseptic skin technique after skin preparation using alcohol swab with Marcaine 0.25% solution 4 mL mixed with 2 mL of Depo-Medrol 40 mg per 1 mL solution and she tolerated the procedure satisfactorily without any side effects. I injected her right sacroiliac joint area and right trochanteric bursa. Do use ice pack to the area of injection. I have reviewed with her home exercise program of physical modalities and stretching exercises and proper body mechanics and would like to see her for followup on an as needed basis. She can be discharged to home when medically stable. Dr. James, appreciate asking me to participate in the care of this interesting patient. I will be glad to follow her with you as needed for her rehabilitation. TASHI RESTREPO MD DR: JENAE/amrik JOB#: [id number] / [id number] GARRETT
[2018-05-20 03:00] VITALS: BP 132/54
[2018-05-20] MEDS: oxyCODONE/APAP 10/325 1 TAB TABLET PO PRN ×3 (03:26→13:35)
[2018-05-20 07:00] VITALS: BP 161/63
[2018-05-20] MEDS: IPRATRPIUM/ALBUTEROL 0.5/2.5MG 3 ML NEBU. NEB SCH (08:03)
[2018-05-20] MEDS: INSULIN LISPRO 300 UNITS/3 ML INSULN.PEN. SQ SCH ×2 (09:10→12:00)
[2018-05-20] MEDS: GLIMEPIRIDE 2 MG TABLET. PO SCH (09:11)
[2018-05-20] MEDS: POTASSIUM CHLORIDE 10 MEQ TABLET.ER. PO SCH (09:11)
[2018-05-20] MEDS: ASPIRIN ENTERIC COATED 81 MG TABLET.DR. PO SCH (09:12)
[2018-05-20] MEDS: LOSARTAN POTASSIUM 50 MG TABLET. PO SCH (09:12)
[2018-05-20] MEDS: FUROSEMIDE 40 MG TABLET. PO SCH (09:13)
[2018-05-20] MEDS: FERROUS SULFATE 325 MG TABLET. PO SCH (09:13)
[2018-05-20] MEDS: amLODIPine BESYLATE 10 MG TABLET PO SCH (09:13)
--- NOTE | 2018-05-20 09:13 | DISCH ---
DISCHARGE WITH HOME HEALTH DISCHARGE INFORMATION: Discharge Date: May 20, 2018 Condition on Discharge: Stable CODE STATUS: Code Status: Full HOME HEALTH: Face to Face: I certify this patient is under my care and that I, or a nurse practitioner or physician's high school assistant principal working with me, had a face to face encounter that meets the physician face to face encounter requirements with this patient on []. Medical Complications: HTN Physical Therapy For: Evalulation/Treatment Occupational Therapy For: Evaluation/Treatment Home Health Aide For: Self-care POST DISCHARGE ORDERS: Activity Instructions for Disc: Activity as tolerated Weight Bearing Status after Di: As tolerated DIET AFTER DISCHARGE: Low Sodium 2 gm Wound/Incision Care: Ice to area for comfort, May get incision wet CHECKS AFTER DISCHARGE: Checks after discharge: Check blood press - daily, Check blood sugar, ac/hs, Check your Temp as needed, Weigh Yourself Daily TREATMENT/EQUIPMENT ORDERS: Adaptive Equipment Issued: None Discharge Respiratory Equipmen: Oxygen CERTIFICATION STATEMENT: Certification Statement: Certification Statement: Based on the above finding, I certify that this patient is confined to the home and needs intermittent fpc care, physical therapy and/or speech therapy, or continues to need occupational therapy.~ This patient is under my care, and I have initiated the establishment of the plan of care.~ This patient will be followed by myself or a community physician who will periodically review the plan of care. Home Meds Active Scripts Metoprolol Succinate (Toprol Xl) 50 Mg Tab.er.24h, 50 MG PO DAILY for htn MDD 1 , #30 TAB.SR Prov:CATHIE KNIGHT MD 05/19/18 Oxycodone/Apap 10-325 (PERCOCET 10-325 MG TABLET ) 1 Each Tablet, 2 TAB PO PRN Q4-6HRS PRN for PAIN MDD 1, #20 TAB 0 Refills Prov:CATHIE KNIGHT MD 05/19/18 Glimepiride (AMARYL) 2 Mg Tablet, 2 MG PO DAILY for 30 Days, #30 TAB Prov:RADHA PIERRE MD 07/04/17 Reported Medications Calcium Carbonate/Vitamin D3 (CALCIUM 500 + VIT D 200 CAPLET) 1 Each Tablet, 1 EACH PO DAILY for supplement, TAB 05/16/18 Zolpidem Tartrate (ZOLPIDEM TARTRATE) 5 Mg Tablet, 5 MG PO QHS for insomnia, TAB 0 Refills 05/16/18 Clonazepam (CLONAZEPAM) 0.5 Mg Tablet, 0.5 MG PO TID for anti-anxiety, TAB 05/16/18 Fluoxetine Hcl (FLUOXETINE HCL) 20 Mg Capsule, 1 CAP PO DAILY for anti- depressent, #90 CAP 1 Refill 05/16/18 Amlodipine Besylate (AMLODIPINE BESYLATE) 10 Mg Tablet, 10 MG PO DAILY for htn, TAB 05/16/18 Famotidine (FAMOTIDINE) 20 Mg Tablet, 20 MG PO BID for stomach acid, TAB 05/16/18 Losartan Potassium (LOSARTAN POTASSIUM) 100 Mg Tablet, 100 MG PO DAILY for HYPERTENSION, TAB 03/13/18 Furosemide (FUROSEMIDE) 80 Mg Tablet, 80 MG PO TID for heart, TAB 10/09/17 Albuterol Sulfate (ALBUTEROL SULFATE CONC NEB SOLN) 2.5 Mg/0.5 Ml Vial.neb, 5 MG NEB PRN PRN for WHEEZING, EACH 0 Refills 10/07/17 Metoprolol Tartrate (METOPROLOL TARTRATE) 25 Mg Tablet, 1 TAB PO BID, #180 TAB 1 Refill 07/03/17 Ferrous Sulfate (FERROUS SULFATE) 325 Mg Tablet, 1 TAB PO DAILY, #30 TAB 3 Refills 11/01/16 Nitroglycerin (NITROGLYCERIN SubLingual) 0.4 Mg Tab.subl, 0.4 MG SL PRN Q5MIN PRN for CHEST PAIN, BOTTLE 11/01/16 Atorvastatin Calcium (ATORVASTATIN CALCIUM) 20 Mg Tablet, 20 MG PO HS for FOR CHOLESTEROL, #30 TAB 0 Refills 10/28/16 Potassium Chloride (POTASSIUM CHLORIDE) 10 Meq Capsule.er, 10 MEQ PO BID, TAB.SR 10/28/16 Aspirin (ASPIR 81) 81 Mg Tablet.dr, 1 TAB PO DAILY, #30 TAB 5 Refills 10/28/16 Clopidogrel Bisulfate (CLOPIDOGREL) 75 Mg Tablet, 1 TAB PO DAILY, #90 TAB 1 Refill 10/28/16 CATHIE KNIGHT MD May 20, 2018 09:13
[2018-05-20] MEDS: CALCIUM CARB/VIT D3 500/200 TABLET. PO SCH (09:14)
[2018-05-20] MEDS: FAMOTIDINE 20 MG TABLET. PO SCH (09:14)
[2018-05-20] MEDS: CLOPIDOGREL BISULFATE 75 MG TABLET PO SCH (09:15)
[2018-05-20] MEDS: FLUoxetine HCL 20 MG CAPSULE PO SCH (09:15)
[2018-05-20] MEDS: METOPROLOL SUCC 24HR ER 50 MG TAB.ER.24H. PO SCH (09:16)
--- NOTE | 2018-05-20 09:49 | PDOC ---
PROGRESS NOTES Subjective Subjective Soreness at injection site right trochanteric bursa. Objective Objective Vital Signs Date Time Temp Pulse Resp B/P (MAP) Pulse Ox O2 Delivery O2 Flow Rate FiO2 05/20/18 09:17 20 98 Room Air 05/20/18 09:16 59 161/63 05/20/18 08:03 2.0 05/20/18 07:00 97.7 97.7 Intake and Output 05/20/18 07:00 Intake Total 350 ml Output Total 0 ml Balance 350 ml Intake Oral 350 ml Output Urine Total 0 ml # Voids 3 Physical Exam Physical Exam She is alert,comfortable,lying in bed on her left side and she is independent with her mobility at roller walker level and she is breathing on room air. Plan Plan of Fpc today with out patient follow up. Comment Review of Relevant I have reviewed the following items nolan (where applicable) has been applied. Labs Laboratory Tests Test 05/18/18 12:00 05/18/18 16:47 05/18/18 20:30 05/19/18 07:25 Glucose (Fingerstick) 111 mg/dL (70-99) 131 mg/dL (70-99) 126 mg/dL (70-99) 112 mg/dL (70-99) Test 05/19/18 11:16 05/19/18 16:20 05/19/18 20:33 05/20/18 07:50 Glucose (Fingerstick) 128 mg/dL (70-99) 141 mg/dL (70-99) 217 mg/dL (70-99) 121 mg/dL (70-99) Laboratory Tests Test 05/19/18 11:16 05/19/18 16:20 05/19/18 20:33 05/20/18 07:50 Glucose (Fingerstick) 128 mg/dL (70-99) 141 mg/dL (70-99) 217 mg/dL (70-99) 121 mg/dL (70-99) Medications Current Medications Fentanyl Citrate (Fentanyl 2ml Vial) 50 mcg 1X ONCE IV Last administered on at 19:31; Start 05/16/18 at 19:00; Stop 05/16/18 at 19:01; Status DC Ondansetron HCl (Zofran) 4 mg 1X ONCE IV Last administered on 05/16/18at 19:31 ; Start 05/16/18 at 19:00; Stop 05/16/18 at 19:01; Status DC Fentanyl Citrate (Fentanyl 2ml Vial) 75 mcg 1X ONCE IV Last administered on at 20:25; Start 05/16/18 at 20:15; Stop 05/16/18 at 20:17; Status DC Iohexol (Omnipaque 350 Mg/ml) 100 ml 1X ONCE IV Last administered on at 22:09; Start 05/16/18 at 21:30; Stop 05/16/18 at 21:31; Status DC Info (CONTRAST GIVEN -- Rx MONITORING) 1 each PRN DAILY PRN MC SEE COMMENTS; Start 05/16/18 at 21:30; Stop 05/18/18 at 21:29; Status DC Ketorolac Tromethamine (Toradol 15mg Vial) 15 mg 1X ONCE IV Last administered on 05/16/18at 22:03; Start 05/16/18 at 21:45; Stop 05/16/18 at 21:46; Status DC Ondansetron HCl (Zofran) 4 mg PRN Q8HRS PRN IV NAUSEA/VOMITING; Start 05/16/18 at 23:00; Stop 05/17/18 at 22:59; Status DC Albuterol/ Ipratropium (Duoneb) 3 ml RTQID NEB Last administered on 05/17/18at 11:54; Start 05/17/18 at 08:00; Stop 05/17/18 at 15:53; Status DC Insulin Human Lispro (HumaLOG) 0-7 UNITS TIDWMEALHC SQ Last administered on at 20:50; Start 05/17/18 at 08:00 Dextrose (Dextrose 50%-Water Syringe) 12.5 gm PRN Q15MIN PRN IV SEE COMMENTS; Start 05/16/18 at 23:45 Morphine Sulfate (Morphine Sulfate) 4 mg PRN Q4HRS PRN IV PAIN Last administered on 05/18/18at 06:22; Start 05/16/18 at 23:45 Zolpidem Tartrate (Ambien) 5 mg PRN QHS PRN PO INSOMNIA Last administered on at 23:54; Start 05/16/18 at 23:45 Amlodipine Besylate (Norvasc) 10 mg DAILY PO Last administered on 05/20/18 09: 13; Start 05/17/18 at 09:00 Aspirin (Ecotrin) 81 mg DAILY PO Last administered on 05/20/18 09:12; Start at 09:00 Atorvastatin Calcium (Lipitor) 20 mg HS PO Last administered on 05/19/18 20:45 ; Start 05/17/18 at 21:00 Calcium/Vitamin D (Oscal D 500mg/ 200uts) 1 tab DAILY PO Last administered on 09:14; Start 05/17/18 at 09:00 Clonazepam (KlonoPIN) 0.5 mg PRN TID PRN PO anxiety; Start 05/17/18 at 08:00 Clopidogrel Bisulfate (Plavix) 75 mg DAILY PO Last administered on 05/20/18 09 :15; Start 05/17/18 at 09:00 Famotidine (Pepcid) 20 mg BID PO Last administered on 05/20/18 09:14; Start at 09:00 Ferrous Sulfate (Feosol) 325 mg DAILY PO Last administered on 05/20/18 09:13; Start 05/17/18 at 09:00 Fluoxetine HCl (PROzac) 20 mg DAILY PO Last administered on 05/20/18 09:15; Start 05/17/18 at 09:00 Glimepiride (Amaryl) 2 mg DAILYWBKFT PO Last administered on 05/20/18 09:11; Start 05/17/18 at 09:00 Nitroglycerin (Nitrostat) 0.4 mg PRN Q5MIN PRN SL CHEST PAIN; Start 05/17/18 at 08:00 Oxycodone/ Acetaminophen (Percocet 10/325) 0.5 tab PRN Q6HRS PRN PO PAIN Last administered on 05/17/18 08:47; Start 05/17/18 at 08:00; Stop 05/17/18 at 10:37 ; Status DC Potassium Chloride (Klor-Con) 10 meq BIDWMEALS PO Last administered on 09:11; Start 05/17/18 at 09:00 Zolpidem Tartrate (Ambien) 5 mg QHS PO Last administered on 2/26/19at 20:45; Start 05/17/18 at 21:00 Albuterol Sulfate (Ventolin Neb Soln) 2.5 mg PRN Q6HRS PRN NEB SHORTNESS OF BREATH; Start 05/17/18 at 08:15 Losartan Potassium (Cozaar) 100 mg DAILY PO Last administered on 05/20/18at 09: 12; Start 05/17/18 at 09:00 Metoprolol Succinate (Toprol Xl) 50 mg DAILY PO Last administered on 05/20/18at 09:16; Start 05/17/18 at 09:00 Furosemide (Lasix) 40 mg [id number] IVP Last administered on 05/18/18at 14:53; Start 05/17/18 at 09:00; Stop 05/18/18 at 15:10; Status DC Oxycodone/ Acetaminophen (Percocet 10/325) 1 tab PRN Q6HRS PRN PO PAIN Last administered on 05/17/18at 14:05; Start 05/17/18 at 10:30; Stop 05/17/18 at 18:28 ; Status DC Albuterol/ Ipratropium (Duoneb) 3 ml RTBID NEB Last administered on 05/20/18at 08:03; Start 05/17/18 at 20:00 Oxycodone/ Acetaminophen (Percocet 10/325) 1 tab PRN Q4HRS PRN PO PAIN Last administered on 05/20/18at 09:17; Start 05/17/18 at 18:30 Iohexol (Omnipaque 300 Mg/ml) 100 ml STK-MED ONCE .ROUTE ; Start 05/18/18 at 09: 56; Stop 05/18/18 at 09:57; Status DC Lidocaine HCl (Lidocaine 1% 20ml Vial) 20 ml STK-MED ONCE .ROUTE ; Start at 09:56; Stop 05/18/18 at 09:57; Status DC Heparin Sodium/ Sodium Chloride 500 ml @ As Directed STK-MED ONCE .ROUTE ; Start 05/18/18 at 09:56; Stop 05/18/18 at 09:57; Status DC Midazolam HCl (Versed) 2 mg STK-MED ONCE .ROUTE ; Start 05/18/18 at 10:29; Stop 05/18/18 at 10:30; Status DC Fentanyl Citrate (Fentanyl 2ml Vial) 100 mcg STK-MED ONCE .ROUTE ; Start at 10:30; Stop 05/18/18 at 10:31; Status DC Heparin Sodium/ Sodium Chloride (HEPARIN for ARTERIAL LINE FLUSH) 1,000 unit 1X ONCE IART Last administered on 05/18/18at 11:00; Start 05/18/18 at 11:00; Stop 05/18/18 at 11:01; Status DC Midazolam HCl (Versed) 2 mg 1X ONCE IV Last administered on 05/18/18at 11:00; Start 05/18/18 at 11:00; Stop 05/18/18 at 11:01; Status DC Fentanyl Citrate (Fentanyl 2ml Vial) 100 mcg 1X ONCE IV Last administered on at 11:00; Start 05/18/18 at 11:00; Stop 05/18/18 at 11:01; Status DC Iohexol (Omnipaque 300 Mg/ml) 100 ml 1X ONCE IART Last administered on at 11:00; Start 05/18/18 at 11:00; Stop 05/18/18 at 11:01; Status DC Lidocaine HCl (Lidocaine 1% 20ml Vial) 20 ml 1X ONCE INJ Last administered on 05/18/18at 11:00; Start 05/18/18 at 11:00; Stop 05/18/18 at 11:01; Status DC Iohexol (Omnipaque 300 Mg/ml) 100 ml STK-MED ONCE .ROUTE ; Start 05/18/18 at 10: 59; Stop 05/18/18 at 11:00; Status DC Furosemide (Lasix) 40 mg BID94 PO Last administered on 05/20/18at 09:13; Start 05/19/18 at 09:00 Methylprednisolone Acetate (DEPO-Medrol 40MG VIAL) 40 mg 1X ONCE IM Last administered on 05/19/18at 14:15; Start 05/19/18 at 14:15; Stop 05/19/18 at 14:16 ; Status DC Methylprednisolone Acetate (DEPO-Medrol 40MG VIAL) 40 mg 1X ONCE IM Last administered on 05/19/18at 14:15; Start 05/19/18 at 14:15; Stop 05/19/18 at 14:16 ; Status DC Bupivacaine HCl (Sensorcaine-Mpf 0.25%) 10 ml 1X ONCE IJ Last administered on 05/19/18at 14:15; Start 05/19/18 at 14:15; Stop 05/19/18 at 14:16; Status DC Active Scripts Active Toprol Xl (Metoprolol Succinate) 50 Mg Tab.er.24h 50 Mg PO DAILY MDD 1 Percocet 10-325 Mg Tablet (Oxycodone/Acetaminophen) 1 Each Tablet 2 Tab PO PRN Q4-6HRS PRN MDD 1 Amaryl (Glimepiride) 2 Mg Tablet 2 Mg PO DAILY 30 Days Reported Calcium 500 + Vit D 200 Caplet (Calcium Carbonate/Vitamin D3) 1 Each Tablet 1 Each PO DAILY Zolpidem Tartrate 5 Mg Tablet 5 Mg PO QHS Clonazepam 0.5 Mg Tablet 0.5 Mg PO TID Fluoxetine Hcl 20 Mg Capsule 1 Cap PO DAILY Amlodipine Besylate 10 Mg Tablet 10 Mg PO DAILY Famotidine 20 Mg Tablet 20 Mg PO BID Losartan Potassium 100 Mg Tablet 100 Mg PO DAILY Furosemide 80 Mg Tablet 80 Mg PO TID Albuterol Sulfate Conc Neb Soln (Albuterol Sulfate) 2.5 Mg/0.5 Ml Vial.neb 5 Mg NEB PRN PRN Metoprolol Tartrate 25 Mg Tablet 1 Tab PO BID Ferrous Sulfate 325 Mg Tablet 1 Tab PO DAILY NITROGLYCERIN SubLingual (Nitroglycerin) 0.4 Mg Tab.subl 0.4 Mg SL PRN Q5MIN PRN Atorvastatin Calcium 20 Mg Tablet 20 Mg PO HS Potassium Chloride 10 Meq Capsule.er 10 Meq PO BID Aspir 81 (Aspirin) 81 Mg Tablet. 1 Tab PO DAILY Clopidogrel (Clopidogrel Bisulfate) 75 Mg Tablet 1 Tab PO DAILY Vitals/I & O Vital Sign - Last 24 Hours 05/19/18 05/19/18 05/19/18 05/19/18 09:56 09:56 09:57 10:01 Pulse 60 60 60 B/P (MAP) 131/51 131/51 131/51 O2 Delivery Room Air 05/19/18 05/19/18 05/19/18 05/19/18 11:00 15:02 15:22 19:00 Temp 98.4 98.8 98.3 98.4 98.8 98.3 Pulse 60 60 60 Resp 18 20 16 B/P (MAP) 137/42 (73) 108/54 (72) 149/53 (85) Pulse Ox 93 96 99 O2 Delivery Room Air Room Air Room Air Nasal Cannula O2 Flow Rate 2.0 05/19/18 05/19/18 05/19/18 05/19/18 19:31 20:00 23:00 23:22 Temp 98.0 98.0 Pulse 60 Resp 16 B/P (MAP) 132/53 (79) Pulse Ox 97 95 O2 Delivery Room Air Room Air Nasal Cannula Nasal Cannula O2 Flow Rate 2.0 3.0 05/20/18 05/20/18 05/20/18 05/20/18 03:00 03:26 04:40 07:00 Temp 98.2 97.7 98.2 97.7 Pulse 60 59 Resp 16 18 B/P (MAP) 132/54 (80) 161/63 (95) Pulse Ox 98 100 O2 Delivery Nasal Cannula Nasal Cannula Nasal Cannula Nasal Cannula O2 Flow Rate 2.0 3.0 3.0 2.0 05/20/18 05/20/18 05/20/18 05/20/18 08:03 09:12 09:13 09:16 Pulse 59 59 59 B/P (MAP) 161/63 161/63 161/63 Pulse Ox 100 O2 Delivery Nasal Cannula O2 Flow Rate 2.0 05/20/18 09:17 Resp 20 Pulse Ox 98 O2 Delivery Room Air Intake and Output 05/19/18 05/19/18 05/20/18 15:00 23:00 07:00 Intake Total 200 ml 150 ml Output Total 0 ml 0 ml Balance 200 ml 150 ml 0 ml TASHI RESTREPO MD May 20, 2018 09:49
[2018-05-20 11:00] VITALS: BP 132/65
--- NOTE | 2018-05-20 11:18 | NUR ---
MARINA following pt. MARINA spoke with Pt who reported she has HH with [facility]. MARINA phoned and faxed orders to [facility]. LINDSAY to arrange transportation.
--- NOTE | 2018-05-20 15:21 | NUR ---
Discharge teaching provided written and verbal to pt,understanding verbalized.Dismissed to home per taxi cab with all belongings. Cab pass voucher provided to pt. Transported to cab per w/c at 1445.
--- NOTE | 2018-05-20 18:26 | DS ---
DATE OF DISCHARGE: 05/20/2018 DISCHARGE DIAGNOSES: 1. Chest pain, gastroesophageal reflux disease, clean catheterization. 2. Back pain and hip pain, status post injections, Dr. Wall 05/19/2018. 3. Obesity. 4. Known congestive heart failure, previously on BiPAP. BRIEF HOSPITAL COURSE: The patient is a 63-year-old obese female known to us because she is a frequent flyer for chest pain and always turns out to be noncardiac. She does have history of coronary artery disease with stent and CHF, needing BiPAP before, but this seems to be quiescent lately. In any case, an LHC was done on 05/18/2018, which was clean and was about to discharge one day prior to official discharge, but she complained of back pain and hip pain and had gotten injections by Physiatry and is feeling much better. She already has ongoing current home health. DISCHARGE DISPOSITION: Home health. CONSULTS PERFORMED: Cardiology, Physiatry. PROCEDURES PERFORMED: LHC 05/18/2018 and back and hip injections 05/19/2018. MEDICATIONS: On chart, requested pain medicine. CATHIE KNIGHT MD DR: /nts JOB#: [id number] / [id number]
--- NOTE | 2018-05-20 18:42 | PDOC ---
CARDIO Progress Notes Date and Time Date of Service 05/20/2018 Time of Evaluation 1240 Subjective Subjective: No Chest Pain, No shortness of breath, No Palpitations Vitals Vitals Vital Signs Date Time Temp Pulse Resp B/P (MAP) Pulse Ox O2 Delivery O2 Flow Rate FiO2 05/20/18 14:35 20 100 Room Air 05/20/18 11:00 97.7 59 132/65 (87) 2.0 97.7 Weight Weight [ ] Input and Output Intake and Output Intake and Output 05/20/18 06:59 Intake Total 350 ml Output Total 0 ml Balance 350 ml Intake Oral 350 ml Output Urine Total 0 ml # Voids 3 Laboratory Labs Laboratory Tests Test 05/19/18 20:33 05/20/18 07:50 05/20/18 12:23 Glucose (Fingerstick) 217 mg/dL (70-99) 121 mg/dL (70-99) 124 mg/dL (70-99) Physical Exam HEENT: Neck Supple W Full Motion Chest: Symmetric LUNGS: Clear to Auscultation Heart: S1S2, RRR (paced) Abdomen: Soft N/T Extremities: No Calf Tenderness Neurology: alert, oriented, follow commands Other Exams right groin arteriotomy site intact, no erythema, swelling, neurovascular status to bilateral LE intact Assessment Assessment 1. Chest pain/MCCLOUD: UA features prompting LHC. no CP further, possible bronchospasm. 2. CAD: past CABG, LHC as noted above revealed no significant stenosis with patent grafts as noted in report 3. Acute on chronic systolic/diastolic heart failure: Recent EF 50-55%. LHC revealed 40% EF. Compensated 4. HTN: controlled 5. HLP 6. Sick sinus syndrome s/p permanent pacemaker implantation, stable 7. Morbid obesity Recommendations 1. Continue with secondary prevention and lasix therapy and antiplatelet therapy 2. Follow up in office 4 weeks REDDY MARTINEZ APRN May 20, 2018 18:42
[2018-09-01] MEDS ORDERED: WARF10TA45 MC (11:57)
== END 2018-05-20 14:45 | disposition home health service (06) | DRG 391 ==
LOC: ER 18:36 → 5 NORTH 22:00
PROVIDERS: ADMIT Internal Medicine; ATTEND Internal Medicine
PROC: 4A023N7 Measurement of Cardiac Sampling and Pressure, Left Heart, Percutaneous Approach (ICD-10-PCS; principal; 2018-05-18)
PROC: B2111ZZ Fluoroscopy of Multiple Coronary Arteries using Low Osmolar Contrast (ICD-10-PCS; 2018-05-18)
PROC: B2151ZZ Fluoroscopy of Left Heart using Low Osmolar Contrast (ICD-10-PCS; 2018-05-18)
PROC: B2131ZZ Fluoroscopy of Multiple Coronary Artery Bypass Grafts using Low Osmolar Contrast (ICD-10-PCS; 2018-05-18)
DX: K21.9 Gastro-esophageal reflux disease without esophagitis (principal); I50.43 Acute on chronic combined systolic (congestive) and diastolic (congestive) heart failure; Z68.41 Body mass index [BMI] 40.0-44.9, adult; E44.1 Mild protein-calorie malnutrition; I25.10 Atherosclerotic heart disease of native coronary artery without angina pectoris; I11.0 Hypertensive heart disease with heart failure; E78.5 Hyperlipidemia, unspecified; M19.90 Unspecified osteoarthritis, unspecified site; G89.29 Other chronic pain; Z96.659 Presence of unspecified artificial knee joint; J44.9 Chronic obstructive pulmonary disease, unspecified; E11.42 Type 2 diabetes mellitus with diabetic polyneuropathy; E11.22 Type 2 diabetes mellitus with diabetic chronic kidney disease; M54.16 Radiculopathy, lumbar region; E66.01 Morbid (severe) obesity due to excess calories; G47.00 Insomnia, unspecified; I25.2 Old myocardial infarction; Z99.81 Dependence on supplemental oxygen; Z90.710 Acquired absence of both cervix and uterus; Z95.0 Presence of cardiac pacemaker; Z95.1 Presence of aortocoronary bypass graft; Z95.5 Presence of coronary angioplasty implant and graft; Z88.6 Allergy status to analgesic agent; Z79.02 Long term (current) use of antithrombotics/antiplatelets; Z79.82 Long term (current) use of aspirin; Z79.84 Long term (current) use of oral hypoglycemic drugs; Z79.899 Other long term (current) drug therapy; Z83.3 Family history of diabetes mellitus
CPT/HCPCS: 36415; 71045; 71275; 80053; 82962; 83880; 84484; 85025; 85379; 85610; 93005; 93459; 94640; 94760; 96374; 96375; 96376; 99152; 99153; C1760; C1769; C1892; G0269; J1030; J1644; J1815; J1885; J1940; J2250; J2270; J2405; J3010; J3490; J7620; Q9967; 99285-25; C1771

== ENCOUNTER 2018-05-21 18:51 | Inpatient (IN) | payer OTHER ==
[~2018-05-21] VITALS: Ht 162.6 cm; Wt 105.3 kg
[~2018-05-21 18:51] MED LIST changes: +AMLO10TA8 PO; +CALC-56 PO; +CLON0.5T11 PO; +METO50TA4 PO; +ZOLP5TAB5 PO
[2018-05-21] MEDS ORDERED: ASPIRIN CHEWABLE 81 MG TABLET. PO ONE (19:15)
[2018-05-21] MEDS ORDERED: ONDANSETRON PF 4 MG/2 ML VIAL. IV ONE (19:15)
[2018-05-21 19:30] LABS: BASO # 0.1 x10^3/uL (0.0-0.2); BASO % 1 % (0-3); EOS % 0 % (0-3); HEMATOCRIT 36.2 % (36.0-47.0); HEMOGLOBIN 11.5 g/dL (12.0-15.5); LYMPH # 1.2 x10^3/uL (1.0-4.8); LYMPH % 12 % (24-48); MEAN CORPUSCULAR HEMOGLOBIN 27 pg (25-35); MEAN CORPUSCULAR HGB CONC 32 g/dL (31-37); MEAN CORPUSCULAR VOLUME 84 fL (79-100); MONO # 0.7 x10^3/uL (0.0-1.1); MONO % 7 % (0-9); NEUT # 8.2 x10^3uL (1.8-7.7); NEUT % 80 % (31-73); PLATELET COUNT 336 x10^3/uL (140-400); RED BLOOD COUNT 4.33 x10^6/uL (3.50-5.40); RED CELL DISTRIBUTION WIDTH 16.4 % (11.5-14.5); WHITE BLOOD COUNT 10.2 x10^3/uL (4.0-11.0)
--- NOTE | 2018-05-21 19:37 | PHYS DOC ---
Past Medical History Past Medical History: Angina, CAD, CHF, COPD, Diabetes-Type II, High Cholesterol, Hypertension, [place], Other Additional Past Medical Histor: O2 DEPENDENT 3 L PRN, chronic pain Past Surgical History: Cholecystectomy, Coronary Bypass Surgery, Hysterectomy, Knee Replacement, Pacemaker, Other Additional Past Surgical Histo: STENTS Alcohol Use: None Drug Use: None Adult General Chief Complaint Chief Complaint: CHEST PAIN HPI HPI Patient is a 63-year-old female who presents with complaint of left-sided chest pain that started this morning at about 8 AM. She rates pain at an 8 out of 10. She describes pain as being sharp and stabbing in nature. She states the pain is worsened with deep breathing. She also complains of nausea and vomiting that started this morning. Patient had just been discharged from the hospital yesterday after having cardiac catheter which reportedly had returned normal. Review of Systems Review of Systems Constitutional: Denies fever or chills [] Respiratory: Denies cough or shortness of breath [] Cardiovascular: No additional information not addressed in HPI [] GI: Denies abdominal pain. Complains of nausea and vomiting without diarrhea [] Integument: Denies rash or skin lesions [] Neurologic: Denies headache, focal weakness or sensory changes [] All other systems were reviewed and found to be within normal limits, except as documented in this note. Current Medications Current Medications Current Medications Medications (Trade) Dose Ordered Sig/Susan Start Time Stop Time Status Last Admin Dose Admin Aspirin (Children'S Aspirin) 324 mg 1X ONCE 05/21/18 19:15 05/21/18 19:20 DC Morphine Sulfate (Morphine Sulfate) 2 mg PRN Q15MIN PRN 05/21/18 19:15 05/22/18 19:14 05/21/18 19:47 2 MG Ondansetron HCl (Zofran) 4 mg 1X ONCE 05/21/18 19:15 05/21/18 19:20 DC 05/21/18 19:47 4 MG Allergies Allergies Allergies Coded Allergies Type Severity Reaction Last Updated Verified ibuprofen Adverse Reaction Intermediate Nausea and Vomiting 12/02/17 Yes Physical Exam Physical Exam Constitutional: Well developed, well nourished, no acute distress, non-toxic appearance. [] HENT: Normocephalic, atraumatic, bilateral external ears normal, oropharynx moist, no oral exudates, nose normal. [] Eyes: PERRLA, EOMI, conjunctiva normal, no discharge. [] Neck: Normal range of motion, no tenderness, supple, no stridor. [] Cardiovascular: Regular rate and rhythm[] Lungs & Thorax: Bilateral breath sounds clear to auscultation [] Abdomen: Bowel sounds normal, soft, no tenderness. [] Skin: Warm, dry, no erythema, no rash. [] Extremities: No tenderness, no cyanosis, no clubbing, ROM intact, no edema. [] Neurologic: Alert and oriented X 3, no focal deficits noted. [] Current Patient Data Vital Signs Vital Signs Date Time Temp Pulse Resp B/P (MAP) Pulse Ox O2 Delivery O2 Flow Rate FiO2 05/21/18 18:52 99.0 76 20 186/81 (116) 99 Room Air 99.0 Lab Values Laboratory Tests Test 05/21/18 19:20 White Blood Count 10.2 x10^3/uL (4.0-11.0) Red Blood Count 4.33 x10^6/uL (3.50-5.40) Hemoglobin 11.5 g/dL (12.0-15.5) L Hematocrit 36.2 % (36.0-47.0) Mean Corpuscular Volume 84 fL (79-100) Mean Corpuscular Hemoglobin 27 pg (25-35) Mean Corpuscular Hemoglobin Concent 32 g/dL (31-37) Red Cell Distribution Width 16.4 % (11.5-14.5) H Platelet Count 336 x10^3/uL (140-400) Neutrophils (%) (Auto) 80 % (31-73) H Lymphocytes (%) (Auto) 12 % (24-48) L Monocytes (%) (Auto) 7 % (0-9) Eosinophils (%) (Auto) 0 % (0-3) Basophils (%) (Auto) 1 % (0-3) Neutrophils # (Auto) 8.2 x10^3uL (1.8-7.7) H Lymphocytes # (Auto) 1.2 x10^3/uL (1.0-4.8) Monocytes # (Auto) 0.7 x10^3/uL (0.0-1.1) Eosinophils # (Auto) 0.0 x10^3/uL (0.0-0.7) Basophils # (Auto) 0.1 x10^3/uL (0.0-0.2) Sodium Level 139 mmol/L (136-145) Potassium Level 3.9 mmol/L (3.5-5.1) Chloride Level 98 mmol/L (98-107) Carbon Dioxide Level 33 mmol/L (21-32) H Anion Gap 8 (6-14) Blood Urea Nitrogen 19 mg/dL (7-20) Creatinine 0.8 mg/dL (0.6-1.0) Estimated GFR (Cockcroft-Gault) 87.4 BUN/Creatinine Ratio 24 (6-20) H Glucose Level 112 mg/dL (70-99) H Calcium Level 9.8 mg/dL (8.5-10.1) Magnesium Level 1.8 mg/dL (1.8-2.4) Total Bilirubin 0.2 mg/dL (0.2-1.0) Aspartate Amino Transferase (AST) 15 U/L (15-37) Alanine Aminotransferase (ALT) 29 U/L (14-59) Alkaline Phosphatase 99 U/L (46-116) Troponin I Quantitative < 0.017 ng/mL (0.000-0.055) BK-Wni-C-Type Natriuretic Peptide 1827 pg/mL (0-124) H Total Protein 8.6 g/dL (6.4-8.2) H Albumin 3.2 g/dL (3.4-5.0) L Albumin/Globulin Ratio 0.6 (1.0-1.7) L Lipase 110 U/L (73-393) Laboratory Tests 05/21/18 19:20 Laboratory Tests 05/21/18 19:20 EKG EKG [] Interpretation Time: EKG demonstrates normal sinus rhythm with what appears to be a left bundle branch block. Radiology/Procedures Radiology/Procedures [] Course & Med Decision Making Course & Med Decision Making Pertinent Labs and Imaging studies reviewed. (See chart for details) [] Dragon Disclaimer Dragon Disclaimer This electronic medical record was generated, in whole or in part, using a voice recognition dictation system. Departure Departure Impression: Primary Impression: Chest pain Additional Impression: CHF exacerbation Disposition: ADMITTED INPATIENT Admitting Physician: Charlie Gardner Condition: GOOD Referrals: NO PCP (PCP) Problem Qualifiers Primary Impression: Chest pain Chest pain type: unspecified Qualified Codes: R07.9 - Chest pain, unspecified Additional Impression: CHF exacerbation Heart failure type: unspecified Qualified Codes: I50.9 - Heart failure, unspecified INDERJIT CANALES Jr. DO May 21, 2018 19:37
[2018-05-21 19:39] LABS: CALCIUM 9.8 mg/dL (8.5-10.1); CREATININE 0.8 mg/dL (0.6-1.0); GFR 87.4; POTASSIUM 3.9 mmol/L (3.5-5.1)
[2018-05-21 19:46] LABS: ALBUMIN 3.2 g/dL (3.4-5.0); ALBUMIN/GLOBULIN RATIO 0.6 (1.0-1.7); MAGNESIUM 1.8 mg/dL (1.8-2.4); TOTAL BILIRUBIN 0.2 mg/dL (0.2-1.0); TOTAL PROTEIN 8.6 g/dL (6.4-8.2)
[2018-05-21] MEDS: MORPHINE SULFATE 2 MG/ML VIAL. IV/SQ PRN ×2 (19:47→20:56)
--- NOTE | 2018-05-21 20:06 | RAD ---
Indication:Chest pain TECHNIQUE:Portable AP chest X-ray COMPARISON:05/16/2018 FINDINGS: CABG changes noted. Stable position of left chest wall cardiac pacer with leads projecting over the heart. Heart is mildly enlarged in size. Lungs are clear. No pneumothorax or pleural effusion. Visualized bony thorax within normal limits. IMPRESSION: Stable mild cardiomegaly. No acute pulmonary process. Electronically signed by: Fede Purvis DO (05/21/2018 8:03 PM) [facility]
[2018-05-21] MEDS ORDERED: ONDANSETRON PF 4 MG/2 ML VIAL. IV PRN (21:00)
--- NOTE | 2018-05-21 23:00 | NUR ---
Patient arrived on unit at 2240 accompanied by ED RN. Patient alert and oriented, able to answer admission questions when asked. Dr. Moser called to re-start home medications per patient's request, unable to take medications during the day due to nausea. Complains of mid-sternal chest pain that does not radiate and has been continuous since discharged on 05/20. Sepsis screen was negative.
[2018-05-21 23:04] VITALS: BP 166/73
[2018-05-21] MEDS ORDERED: ALBUTEROL SULFATE 5 MG NEB PRN (23:15)
[2018-05-21] MEDS ORDERED: oxyCODONE/APAP 10/325 1 TAB TABLET PO PRN ×2 (23:15→23:30)
[2018-05-21] MEDS ORDERED: NITROGLYCERIN SUBLINGUAL 0.4 MG BOTTLE OF 25. SL PRN (23:15)
[2018-05-21] MEDS ORDERED: ALBUTEROL SULFATE 2.5 MG/3 ML NEBU. NEB PRN (23:30)
[2018-05-21] MEDS: MORPHINE SULFATE 2 MG/ML VIAL. IV PRN (23:41)
[2018-05-21] MEDS ORDERED: ZOLPIDEM 5 MG TABLET. PO ONE (23:45)
[2018-05-22] MEDS: MORPHINE SULFATE 2 MG/ML VIAL. IV PRN (03:53)
[2018-05-22 03:54] VITALS: BP 157/69
[2018-05-22 08:00] VITALS: BP 169/81
[2018-05-22] MEDS ORDERED: CLOPIDOGREL BISULFATE 75 MG TABLET PO SCH (09:00)
[2018-05-22] MEDS ORDERED: POTASSIUM CHLORIDE 10 MEQ TABLET.ER. PO SCH (09:00)
[2018-05-22] MEDS ORDERED: FERROUS SULFATE 325 MG TABLET. PO SCH (09:00)
[2018-05-22] MEDS ORDERED: FLUoxetine HCL 20 MG CAPSULE PO SCH (09:00)
[2018-05-22] MEDS ORDERED: METOPROLOL SUCC 24HR ER 50 MG TAB.ER.24H. PO SCH (09:00)
[2018-05-22] MEDS ORDERED: CALCIUM CARB/VIT D3 500/200 TABLET. PO SCH (09:00)
[2018-05-22] MEDS ORDERED: FAMOTIDINE 20 MG TABLET. PO SCH (09:00)
[2018-05-22] MEDS ORDERED: clonazePAM 0.5 MG TABLET PO SCH (09:00)
[2018-05-22] MEDS ORDERED: amLODIPine BESYLATE 10 MG TABLET PO SCH (09:00)
[2018-05-22] MEDS ORDERED: ASPIRIN ENTERIC COATED 81 MG TABLET.DR. PO SCH (09:00)
[2018-05-22] MEDS ORDERED: LOSARTAN POTASSIUM 50 MG TABLET. PO SCH (09:00)
[2018-05-22] MEDS ORDERED: FUROSEMIDE 80 MG TABLET. PO SCH (09:00)
[2018-05-22] MEDS ORDERED: GLIMEPIRIDE 2 MG TABLET. PO SCH (09:00)
--- NOTE | 2018-05-22 10:39 | NUR ---
SS following for discharge planning. SS reviewed pt chart and met with pt in room. Pt is from home and was previously on services with [facility], ; fax [phone]. Pt will need resumption of care orders for home healthcare prior to returning home. Pt's RN and physician notified.
[2018-05-22 11:00] VITALS: BP 125/60
--- NOTE | 2018-05-22 11:14 | DISCH ---
DISCHARGE WITH HOME HEALTH DISCHARGE INFORMATION: Condition on Discharge: Stable CODE STATUS: Code Status: Full HOME HEALTH: Face to Face: I certify this patient is under my care and that I, or a nurse practitioner or physician's executive marketing assistant working with me, had a face to face encounter that meets the physician face to face encounter requirements with this patient on []. Medical Complications: CHF Physical Therapy For: Evalulation/Treatment Occupational Therapy For: Evaluation/Treatment Home Health Aide For: Self-care TOY MAKER For: Community Resources POST DISCHARGE ORDERS: Activity Instructions for Disc: Activity as tolerated, Other, see below Weight Bearing Status after Di: As tolerated DIET AFTER DISCHARGE: Cardiac Wound/Incision Care: Other, see below CHECKS AFTER DISCHARGE: Checks after discharge: Check blood press - daily, Check blood sugar, ac/hs, Check your Temp as needed, Weigh Yourself Daily TREATMENT/EQUIPMENT ORDERS: Adaptive Equipment Issued: None Discharge Respiratory Equipmen: Oxygen CERTIFICATION STATEMENT: Certification Statement: Certification Statement: Based on the above finding, I certify that this patient is confined to the home and needs intermittent halfway care, physical therapy and/or speech therapy, or continues to need occupational therapy.~ This patient is under my care, and I have initiated the establishment of the plan of care.~ This patient will be followed by myself or a community physician who will periodically review the plan of care. Home Meds Active Scripts Metoprolol Succinate (Toprol Xl) 50 Mg Tab.er.24h, 50 MG PO DAILY for htn MDD 1 , #30 TAB.SR Prov:CATHIE KNIGHT MD 05/19/18 Oxycodone/Apap 10-325 (PERCOCET 10-325 MG TABLET ) 1 Each Tablet, 2 TAB PO PRN Q4-6HRS PRN for PAIN MDD 1, #20 TAB 0 Refills Prov:CATHIE KNIGHT MD 05/19/18 Glimepiride (AMARYL) 2 Mg Tablet, 2 MG PO DAILY for 30 Days, #30 TAB Prov:RADHA PIERRE MD 07/04/17 Reported Medications Calcium Carbonate/Vitamin D3 (CALCIUM 500 + VIT D 200 CAPLET) 1 Each Tablet, 1 EACH PO DAILY for supplement, TAB 05/16/18 Zolpidem Tartrate (ZOLPIDEM TARTRATE) 5 Mg Tablet, 5 MG PO QHS for insomnia, TAB 0 Refills 05/16/18 Clonazepam (CLONAZEPAM) 0.5 Mg Tablet, 0.5 MG PO TID for anti-anxiety, TAB 05/16/18 Fluoxetine Hcl (FLUOXETINE HCL) 20 Mg Capsule, 1 CAP PO DAILY for anti- depressent, #90 CAP 1 Refill 05/16/18 Amlodipine Besylate (AMLODIPINE BESYLATE) 10 Mg Tablet, 10 MG PO DAILY for htn, TAB 05/16/18 Famotidine (FAMOTIDINE) 20 Mg Tablet, 20 MG PO BID for stomach acid, TAB 05/16/18 Losartan Potassium (LOSARTAN POTASSIUM) 100 Mg Tablet, 100 MG PO DAILY for HYPERTENSION, TAB 03/13/18 Furosemide (FUROSEMIDE) 80 Mg Tablet, 80 MG PO TID for heart, TAB 10/09/17 Albuterol Sulfate (ALBUTEROL SULFATE CONC NEB SOLN) 2.5 Mg/0.5 Ml Vial.neb, 5 MG NEB PRN PRN for WHEEZING, EACH 0 Refills 10/07/17 Ferrous Sulfate (FERROUS SULFATE) 325 Mg Tablet, 1 TAB PO DAILY, #30 TAB 3 Refills 11/01/16 Nitroglycerin (NITROGLYCERIN SubLingual) 0.4 Mg Tab.subl, 0.4 MG SL PRN Q5MIN PRN for CHEST PAIN, BOTTLE 11/01/16 Atorvastatin Calcium (ATORVASTATIN CALCIUM) 20 Mg Tablet, 20 MG PO HS for FOR CHOLESTEROL, #30 TAB 0 Refills 10/28/16 Potassium Chloride (POTASSIUM CHLORIDE) 10 Meq Capsule.er, 10 MEQ PO BID, TAB.SR 10/28/16 Aspirin (ASPIR 81) 81 Mg Tablet.dr, 1 TAB PO DAILY, #30 TAB 5 Refills 10/28/16 Clopidogrel Bisulfate (CLOPIDOGREL) 75 Mg Tablet, 1 TAB PO DAILY, #90 TAB 1 Refill 10/28/16 Discontinued Reported Medications Metoprolol Tartrate (METOPROLOL TARTRATE) 25 Mg Tablet, 1 TAB PO BID, #180 TAB 1 Refill 07/03/17 PERICO BUCHANAN III DO May 22, 2018 11:14
--- NOTE | 2018-05-22 11:36 | NUR ---
SS following up with discharge planning. Discharge orders received for home healthcare. SS phoned and faxed home healthcare orders and referral to [facility], ; fax [phone]. SS met with pt and pt reported that she was planning to have a friend drive her home. Pt's RN notified.
--- NOTE | 2018-05-22 11:58 | EKG ---
[facility] [address] [place] [address] Test Date: 2018-05-21 Test Time: 18:55:08 Pat Name: GRETCHEN BONILLA Department: Room: 203 1 Gender: F Personal Banking Officer: : [id number] Requested By: INDERJIT CANALES Order Number: [id number] Reading MD: Salvador Maldonado MD Measurements Intervals [place] Rate: 77 P: -118 SC: 154 QRS: -146 QRSD: 156 T: 103 QT: 414 QTc: 470 Interpretive Statements SR PROBABLE BI-V PACED Electronically Signed On 05-26-2018 7:57:43 STATEMENT CLERKS SUPERVISOR by Salvador Maldonado MD
--- NOTE | 2018-05-22 12:02 | SSS ---
ADMIT DATE: CHIEF COMPLAINT: Chest pain and shortness of breath. HISTORY OF PRESENT ILLNESS: The patient is a pleasant 63-year-old female who we admit weekly. Once again, she presents with chest pain. I suspect she has severe problems with loneliness and she admits to that. States, she does not have a car and her granddaughter is never at home and she is lonely. She wants to get at this time. She once again presents with chest pain, rated 7/10, associated nausea. She tried taking some home meds, but that does not work. I have discussed the case with ER physician. We admitted her. This morning, she is doing better. We plan to discharge if okay with Cardiology. PAST MEDICAL HISTORY: Multiple admissions for loneliness, angina, CAD, CHF, COPD, diabetes, hypertension, myocardial infarction, cholecystectomy, bypass surgery, hysterectomy, knee replacement, pacemaker, cardiac stents. ALLERGIES: IBUPROFEN. FAMILY HISTORY: Coronary artery disease. SOCIAL HISTORY: She does not drink. She quit smoking, no drugs. She lives at home alone, but her granddaughter is there, sometimes. MEDICATIONS: Reviewed. She is on albuterol, iron, Plavix, atorvastatin, nitro, Toprol-XL, amlodipine, losartan, aspirin, oxycodone, Prozac, clonazepam, Ambien, calcium, potassium, Lasix, Pepcid, and Amaryl. REVIEW OF SYSTEMS: GENERAL: No history of weight change, weakness or fevers. SKIN: No bruising, hair changes or rashes. EYES: No blurred, double or loss of vision. NOSE AND THROAT: No history of nosebleeds, hoarseness or sore throat. HEART: No history of palpitations, chest pain or shortness of breath on exertion. LUNGS: Denies cough, hemoptysis, wheezing or shortness of breath. GASTROINTESTINAL: Denies changes in appetite, nausea, vomiting, diarrhea or constipation. GENITOURINARY: No history of frequency, urgency, hesitancy or nocturia. NEUROLOGIC: Denies history of numbness, tingling, tremor or weakness. PSYCHIATRIC: No history of panic, anxiety or depression. ENDOCRINE: No history of heat or cold intolerance, polyuria or polydipsia. EXTREMITIES: Denies muscle weakness, joint pain, pain on walking or stiffness. PHYSICAL EXAMINATION: VITAL SIGNS: Temperature afebrile, pulse 98, respirations 18, blood pressure 164/80. GENERAL: She is alert, cooperative. HEART: Normal S1, S2. LUNGS: Clear. ABDOMEN: Soft. EXTREMITIES: No edema. SKIN: No rashes. ENDOCRINE: No thyromegaly. LYMPHATICS: No cervical nodes. HEMATOPOIETIC: No bruising. LABORATORY DATA: White count is 10. Electrolytes are pending. Troponin is 0, we repeated it 3 times, it is still 0. EKG shows sinus rhythm. ASSESSMENT AND PLAN: Atypical chest pain in an elderly female who probably suffers mostly from loneliness. The patient has been admitted, has done well. We will observe her overnight, check several sets of enzymes. If they are all negative, we plan to discharge. DISPOSITION: Home. ACTIVITY: As tolerated. DIET: Low sodium. MEDICATIONS: Please see the MRAD. TOTAL TIME: 32 minutes. CORDELLL Pat BUCHANAN DO DR: AHMET/amrik JOB#: [id number] / [id number]
--- NOTE | 2018-05-22 12:13 | PDOC ---
CARDIO Progress Notes Vitals Vitals Vital Signs Date Time Temp Pulse Resp B/P (MAP) Pulse Ox O2 Delivery O2 Flow Rate FiO2 05/22/18 08:18 79 169/81 05/22/18 08:00 Room Air 05/22/18 08:00 98.6 22 98 98.6 05/22/18 04:23 3.0 Weight Weight [ ] Input and Output Intake and Output Intake and Output 05/22/18 07:00 Intake Total 500 ml Output Total 350 ml Balance 150 ml Intake Oral 500 ml Output Urine Total 350 ml Laboratory Labs Laboratory Tests Test 05/21/18 19:20 05/21/18 22:57 05/22/18 00:25 05/22/18 03:00 White Blood Count 10.2 x10^3/uL (4.0-11.0) Red Blood Count 4.33 x10^6/uL (3.50-5.40) Hemoglobin 11.5 g/dL (12.0-15.5) Hematocrit 36.2 % (36.0-47.0) Mean Corpuscular Volume 84 fL (79-100) Mean Corpuscular Hemoglobin 27 pg (25-35) Mean Corpuscular Hemoglobin Concent 32 g/dL (31-37) Red Cell Distribution Width 16.4 % (11.5-14.5) Platelet Count 336 x10^3/uL (140-400) Neutrophils (%) (Auto) 80 % (31-73) Lymphocytes (%) (Auto) 12 % (24-48) Monocytes (%) (Auto) 7 % (0-9) Eosinophils (%) (Auto) 0 % (0-3) Basophils (%) (Auto) 1 % (0-3) Neutrophils # (Auto) 8.2 x10^3uL (1.8-7.7) Lymphocytes # (Auto) 1.2 x10^3/uL (1.0-4.8) Monocytes # (Auto) 0.7 x10^3/uL (0.0-1.1) Eosinophils # (Auto) 0.0 x10^3/uL (0.0-0.7) Basophils # (Auto) 0.1 x10^3/uL (0.0-0.2) Sodium Level 139 mmol/L (136-145) Potassium Level 3.9 mmol/L (3.5-5.1) Chloride Level 98 mmol/L (98-107) Carbon Dioxide Level 33 mmol/L (21-32) Anion Gap 8 (6-14) Blood Urea Nitrogen 19 mg/dL (7-20) Creatinine 0.8 mg/dL (0.6-1.0) Estimated GFR (Cockcroft-Gault) 87.4 BUN/Creatinine Ratio 24 (6-20) Glucose Level 112 mg/dL (70-99) Calcium Level 9.8 mg/dL (8.5-10.1) Magnesium Level 1.8 mg/dL (1.8-2.4) Total Bilirubin 0.2 mg/dL (0.2-1.0) Aspartate Amino Transf (AST/SGOT) 15 U/L (15-37) Alanine Aminotransferase (ALT/SGPT) 29 U/L (14-59) Alkaline Phosphatase 99 U/L (46-116) Troponin I Quantitative < 0.017 ng/mL (0.000-0.055) < 0.017 ng/mL (0.000-0.055) < 0.017 ng/mL (0.000-0.055) JB-Cub-J-Type Natriuretic Peptide 1827 pg/mL (0-124) Total Protein 8.6 g/dL (6.4-8.2) Albumin 3.2 g/dL (3.4-5.0) Albumin/Globulin Ratio 0.6 (1.0-1.7) Lipase 110 U/L (73-393) Glucose (Fingerstick) 101 mg/dL (70-99) Test 05/22/18 08:24 Glucose (Fingerstick) 120 mg/dL (70-99) REDDY MARTINEZ APRN May 22, 2018 12:13
--- NOTE | 2018-05-22 12:46 | NUR ---
Patient taken out by wheelchair.
[2018-05-22] MEDS ORDERED: ATORVASTATIN CALCIUM 20 MG TABLET PO SCH (21:00)
[2018-05-22] MEDS ORDERED: ZOLPIDEM 5 MG TABLET. PO SCH (21:00)
== END 2018-05-22 13:30 | disposition home health service (06) | DRG 313 ==
LOC: ER 18:51 → 2 NORTH 20:42
PROVIDERS: ADMIT Family Medicine; ATTEND Family Medicine
DX: R07.89 Other chest pain (principal); J44.9 Chronic obstructive pulmonary disease, unspecified; I50.9 Heart failure, unspecified; I11.0 Hypertensive heart disease with heart failure; I25.10 Atherosclerotic heart disease of native coronary artery without angina pectoris; E78.00 Pure hypercholesterolemia, unspecified; E11.9 Type 2 diabetes mellitus without complications; Z99.81 Dependence on supplemental oxygen; G89.29 Other chronic pain; Z96.659 Presence of unspecified artificial knee joint; Z90.710 Acquired absence of both cervix and uterus; Z82.49 Family history of ischemic heart disease and other diseases of the circulatory system; Z87.891 Personal history of nicotine dependence; Z95.5 Presence of coronary angioplasty implant and graft; I25.2 Old myocardial infarction
CPT/HCPCS: 36415; 71045; 80053; 82962; 83690; 83735; 83880; 84484; 85025; 93005; 96372; 96374; J2270; J2405; 99285-25

== ENCOUNTER 2018-06-21 14:44 | Emergency (ER) | payer OTHER ==
[~2018-06-21] VITALS: Ht 162.6 cm; Wt 103.4 kg
[2018-06-21] MEDS ORDERED: ONDANSETRON PF 4 MG/2 ML VIAL. IV ONE (15:15)
[2018-06-21] MEDS ORDERED: MORPHINE SULFATE 4 MG/ML VIAL. IV ONE (15:15)
[2018-06-21] MEDS ORDERED: IPRATRPIUM/ALBUTEROL 0.5/2.5MG 3 ML NEBU. NEB ONE ×2 (15:30→16:15)
--- NOTE | 2018-06-21 15:34 | PHYS DOC ---
Past Medical History Past Medical History: Angina, CAD, CHF, COPD, Diabetes-Type II, High Cholesterol, Hypertension, [place], Other Additional Past Medical Histor: O2 DEPENDENT 3 L PRN, chronic pain Past Surgical History: Cholecystectomy, Coronary Bypass Surgery, Hysterectomy, Knee Replacement, Pacemaker, Other Additional Past Surgical Histo: STENTS Alcohol Use: None Drug Use: None Adult General Chief Complaint Chief Complaint: COUGH HPI HPI Patient is a 63-year-old female who presents to the emergency department for evaluation. She states that for the past 2 days, she has had a nonproductive cough, which is leading to some soreness in her chest. She has not had any exertional chest pain or significant shortness of breath, different than her baseline. She has not had any significant mucus production. She denies any pleuritic pain. Coughing worsens her chest pain. Other than the stated above, there are no alleviating or exacerbating factors to her symptoms. Patient has a history of numerous admissions to this facility for chest pain. She had a cardiac catheterization about a month ago, reported which has been reviewed. Scuba Diver recommended medical management at that time. Her chest pain today is similar to her prior episodes of chest pain, and not highly consistent with cardiac chest pain. Review of Systems Review of Systems Constitutional: Denies fever or chills [] Eyes: Denies change in visual acuity, redness, or eye pain [] HENT: Denies nasal congestion or sore throat [] Respiratory: Denies pleuritic pain or shortness of breath [] Cardiovascular: No additional information not addressed in HPI [] GI: Denies abdominal pain, nausea, vomiting, bloody stools or diarrhea [] : Denies dysuria or hematuria [] Musculoskeletal: Denies back pain or joint pain [] Integument: Denies rash or skin lesions [] Neurologic: Denies headache, focal weakness or sensory changes [] Endocrine: Denies polyuria or polydipsia [] All other systems were reviewed and found to be within normal limits, except as documented in this note. Current Medications Current Medications Current Medications Medications (Trade) Dose Ordered Sig/Susan Start Time Stop Time Status Last Admin Dose Admin Albuterol Sulfate (Ventolin Neb Soln) 2.5 mg STK-MED ONCE 06/21/18 15:43 06/21/18 15:44 DC Albuterol/ Ipratropium (Duoneb) 3 ml 1X ONCE 06/21/18 16:15 06/21/18 16:16 DC Morphine Sulfate (Morphine Sulfate) 4 mg 1X ONCE 06/21/18 15:15 06/21/18 15:16 DC 06/21/18 15:50 4 MG Ondansetron HCl (Zofran) 4 mg 1X ONCE 06/21/18 15:15 06/21/18 15:16 DC 06/21/18 15:50 4 MG Allergies Allergies Allergies Coded Allergies Type Severity Reaction Last Updated Verified ibuprofen Adverse Reaction Intermediate Nausea and Vomiting 12/02/17 Yes Physical Exam Physical Exam PHYSICAL EXAM: CONSTITUTIONAL: Well developed, well nourished HEAD: normocephalic, atraumatic EENT: PERRL, EOMI. Conjunctivae normal color, sclerae non-icteric; moist mucous membranes. NECK: Supple, non-tender; no meningismus. LUNGS: Lungs CTA, breathing even and unlabored. Normal air movement. HEART: Regular rate and rhythm, no murmur CHEST: No deformity; there is tenderness to palpation to the anterior chest wall , which reproduces the patient's pain. ABDOMEN: The abdomen is soft, and non-tender, no masses or bruits. EXTREM: Normal ROM; no deformity, no calf tenderness. Normal pulses palpable in all extremities. There is no pedal edema. SKIN: No rash; no diaphoresis NEURO: Alert; normal speech and cognition; CN's grossly intact; strength grossly intact without focal deficit. BACK: No CVA TTP. Current Patient Data Vital Signs Vital Signs Date Time Temp Pulse Resp B/P (MAP) Pulse Ox O2 Delivery O2 Flow Rate FiO2 06/21/18 15:50 96 Room Air 06/21/18 14:50 98.3 76 18 127/75 (92) 98.3 Lab Values Laboratory Tests Test 06/21/18 15:30 White Blood Count 8.7 x10^3/uL (4.0-11.0) Red Blood Count 4.35 x10^6/uL (3.50-5.40) Hemoglobin 11.8 g/dL (12.0-15.5) L Hematocrit 36.4 % (36.0-47.0) Mean Corpuscular Volume 84 fL (79-100) Mean Corpuscular Hemoglobin 27 pg (25-35) Mean Corpuscular Hemoglobin Concent 32 g/dL (31-37) Red Cell Distribution Width 16.6 % (11.5-14.5) H Platelet Count 336 x10^3/uL (140-400) Neutrophils (%) (Auto) 75 % (31-73) H Lymphocytes (%) (Auto) 17 % (24-48) L Monocytes (%) (Auto) 7 % (0-9) Eosinophils (%) (Auto) 2 % (0-3) Basophils (%) (Auto) 0 % (0-3) Neutrophils # (Auto) 6.5 x10^3uL (1.8-7.7) Lymphocytes # (Auto) 1.5 x10^3/uL (1.0-4.8) Monocytes # (Auto) 0.6 x10^3/uL (0.0-1.1) Eosinophils # (Auto) 0.1 x10^3/uL (0.0-0.7) Basophils # (Auto) 0.0 x10^3/uL (0.0-0.2) Sodium Level 135 mmol/L (136-145) L Potassium Level 3.4 mmol/L (3.5-5.1) L Chloride Level 93 mmol/L (98-107) L Carbon Dioxide Level 39 mmol/L (21-32) H Anion Gap 3 (6-14) L Blood Urea Nitrogen 30 mg/dL (7-20) H Creatinine 0.9 mg/dL (0.6-1.0) Estimated GFR (Cockcroft-Gault) 76.3 BUN/Creatinine Ratio 33 (6-20) H Glucose Level 231 mg/dL (70-99) H Calcium Level 9.7 mg/dL (8.5-10.1) Total Bilirubin 0.2 mg/dL (0.2-1.0) Aspartate Amino Transferase (AST) 16 U/L (15-37) Alanine Aminotransferase (ALT) 26 U/L (14-59) Alkaline Phosphatase 106 U/L (46-116) Creatine Kinase 59 U/L (26-192) Creatine Kinase MB (Mass) < 0.5 ng/mL (0.0-3.6) Creatine Kinase MB Relative Index % (0-4) Troponin I Quantitative < 0.017 ng/mL (0.000-0.055) NC-Ucx-I-Type Natriuretic Peptide 299 pg/mL (0-124) H Total Protein 8.1 g/dL (6.4-8.2) Albumin 3.2 g/dL (3.4-5.0) L Albumin/Globulin Ratio 0.7 (1.0-1.7) L Laboratory Tests 06/21/18 15:30 Laboratory Tests 06/21/18 15:30 EKG EKG Normal sinus rhythm at a rate of 79 beats for minute, normal axis, [] right bundle-branch block pattern with nonspecific ST/T changes, unchanged compared to patient's prior EKG from 05/21/18. Radiology/Procedures Radiology/Procedures ER physician preliminary chest x-ray interpretation: No acute disease.Pacemaker is in place. Mild cardiomegaly is noted. No infiltrate. Course & Med Decision Making Course & Med Decision Making Pertinent Labs and Imaging studies reviewed. (See chart for details) []5:05 PM: The patient's condition remained stable. Her breath sounds have improved after nebulizer treatments. I discussed test results with the patient, the need for close follow-up with her PCP, and return precautions. Dragon Disclaimer Dragon Disclaimer This electronic medical record was generated, in whole or in part, using a voice recognition dictation system. Departure Departure Impression: Primary Impression: Cough Additional Impression: Chest wall pain Disposition: 01 HOME, SELF-CARE Condition: STABLE Referrals: JENSEN CUEVAS (PCP) Patient Instructions: Acute Bronchitis, Cough, Adult, Musculoskeletal Pain Scripts Benzonatate (TESSALON PERLE) 100 Mg Capsule 1 CAP PO TID, #21 CAP Prov: MILLER ORTIZ MD 06/21/18 Albuterol Sulfate (PROAIR HFA INHALER) 8.5 Gm Hfa.aer.ad 1 PUFF INH PRN Q6HRS PRN for SHORTNESS OF BREATH, #1 INHALER 0 Refills Prov: MILLER ORTIZ MD 06/21/18 Prednisone (PREDNISONE) 20 Mg Tablet 40 MG PO DAILY for 3 Days, #6 TAB Prov: MILLER ORTIZ MD 06/21/18 Problem Qualifiers MILLER ORTIZ MD Jun 21, 2018 15:34
[2018-06-21] MEDS ORDERED: ALBUTEROL SULFATE 2.5 MG/3 ML NEBU. ONE (15:43)
[2018-06-21 15:46] LABS: BASO % 0 % (0-3); EOS # 0.1 x10^3/uL (0.0-0.7); EOS % 2 % (0-3); HEMATOCRIT 36.4 % (36.0-47.0); HEMOGLOBIN 11.8 g/dL (12.0-15.5); LYMPH # 1.5 x10^3/uL (1.0-4.8); LYMPH % 17 % (24-48); MEAN CORPUSCULAR HEMOGLOBIN 27 pg (25-35); MEAN CORPUSCULAR HGB CONC 32 g/dL (31-37); MEAN CORPUSCULAR VOLUME 84 fL (79-100); MONO # 0.6 x10^3/uL (0.0-1.1); MONO % 7 % (0-9); NEUT # 6.5 x10^3uL (1.8-7.7); NEUT % 75 % (31-73); PLATELET COUNT 336 x10^3/uL (140-400); RED BLOOD COUNT 4.35 x10^6/uL (3.50-5.40); RED CELL DISTRIBUTION WIDTH 16.6 % (11.5-14.5); WHITE BLOOD COUNT 8.7 x10^3/uL (4.0-11.0)
[2018-06-21 15:59] LABS: CALCIUM 9.7 mg/dL (8.5-10.1); CREATININE 0.9 mg/dL (0.6-1.0); GFR 76.3; POTASSIUM 3.4 mmol/L (3.5-5.1)
[2018-06-21 16:04] LABS: ALBUMIN 3.2 g/dL (3.4-5.0); ALBUMIN/GLOBULIN RATIO 0.7 (1.0-1.7); TOTAL BILIRUBIN 0.2 mg/dL (0.2-1.0); TOTAL PROTEIN 8.1 g/dL (6.4-8.2)
[2018-06-21 16:13] LABS: CREATINE KINASE 59 U/L (26-192)
[2018-06-21] MEDS ORDERED: ALBU2.5V8 INH (17:11)
[2018-06-21] MEDS ORDERED: BENZ100C PO (17:11)
[2018-06-21] MEDS ORDERED: PRED20TA PO (17:11)
--- NOTE | 2018-06-21 17:22 | RAD ---
Two-view chest dated 06/21/2018. Comparison made to 05/21/2018. Clinical data indication: Cough congestion and chest pain. FINDINGS: PA and lateral views obtained. Heart and mediastinal contours are stable. Dual lead left subclavian pacer in place, unchanged. The patient is status post median sternotomy. Lungs are somewhat hyperinflated but otherwise clear. No consolidation or pleural effusion. No pneumothorax. IMPRESSION: No acute radiographic abnormality. Stable findings compared to 05/21/2018. Electronically signed by: Joon Bauman MD (06/21/2018 5:20 PM) [facility]
[2018-06-21 17:30] VITALS: BP 137/70
--- NOTE | 2018-06-22 07:57 | EKG ---
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
== END 2018-06-21 17:47 | disposition home or self-care (01) ==
LOC: ER 14:44
DX: R05 Cough (principal); R07.89 Other chest pain; R06.02 Shortness of breath; E11.9 Type 2 diabetes mellitus without complications; I11.0 Hypertensive heart disease with heart failure; I50.9 Heart failure, unspecified; I25.2 Old myocardial infarction; E78.00 Pure hypercholesterolemia, unspecified; I25.10 Atherosclerotic heart disease of native coronary artery without angina pectoris; G89.29 Other chronic pain; Z95.1 Presence of aortocoronary bypass graft; Z95.0 Presence of cardiac pacemaker; Z95.5 Presence of coronary angioplasty implant and graft; Z88.8 Allergy status to other drugs, medicaments and biological substances
CPT/HCPCS: 36415; 71046; 80053; 82553; 83880; 84484; 85025; 93005; 94640; 94760; 96374; 96375; 99284; J2270; J2405; J7620

== ENCOUNTER 2018-07-05 20:18 | Inpatient (IN) | payer OTHER ==
[~2018-07-05] VITALS: Ht 162.6 cm; Wt 105.8 kg
[~2018-07-05 20:18] MED LIST changes: +ALBU2.5V8 INH; +BENZ100C PO; +PRED20TA PO
[2018-07-05 21:03] LABS: BASO % 0 % (0-3); EOS % 0 % (0-3); HEMATOCRIT 34.4 % (36.0-47.0); HEMOGLOBIN 11.1 g/dL (12.0-15.5); LYMPH # 1.3 x10^3/uL (1.0-4.8); LYMPH % 13 % (24-48); MEAN CORPUSCULAR HEMOGLOBIN 27 pg (25-35); MEAN CORPUSCULAR HGB CONC 32 g/dL (31-37); MEAN CORPUSCULAR VOLUME 83 fL (79-100); MONO # 0.6 x10^3/uL (0.0-1.1); MONO % 7 % (0-9); NEUT # 7.5 x10^3uL (1.8-7.7); NEUT % 80 % (31-73); PLATELET COUNT 341 x10^3/uL (140-400); RED BLOOD COUNT 4.13 x10^6/uL (3.50-5.40); RED CELL DISTRIBUTION WIDTH 17.1 % (11.5-14.5); WHITE BLOOD COUNT 9.5 x10^3/uL (4.0-11.0)
[2018-07-05 21:11] LABS: PROTHROMBIN TIME PATIENT 24.5 SEC (11.7-14.0)
[2018-07-05 21:12] LABS: CALCIUM 9.6 mg/dL (8.5-10.1); CREATININE 0.7 mg/dL (0.6-1.0); GFR 101.9; POTASSIUM 3.9 mmol/L (3.5-5.1)
[2018-07-05 21:18] LABS: ALBUMIN 3.3 g/dL (3.4-5.0); ALBUMIN/GLOBULIN RATIO 0.8 (1.0-1.7); TOTAL BILIRUBIN 0.3 mg/dL (0.2-1.0); TOTAL PROTEIN 7.7 g/dL (6.4-8.2)
--- NOTE | 2018-07-05 21:40 | RAD ---
CHEST AP ONLY Clinical History: SOA, CHEST PAIN Technique: AP view of the chest was obtained at 07/05/2018 9:00 PM. Comparison: June 21, 2018. Findings: The heart is mildly enlarged. The pulmonary vessels appear normal. There is a left-sided pacemaker and median sternotomy wires. The study is slightly underpenetrated secondary to large body habitus. Impression: Mild cardiomegaly. Stable appearance the chest. Electronically signed by: Rene Eubanks III, MD (07/05/2018 9:37 PM) [id number]
[2018-07-05 22:04] LABS: BASE EXCESS ABG 6 mmol/L (-3-3); FIO2 ABG 36; HCO3 ABG 30 mmol/L (21-28); PCO2 ABG 38 mmHg (35-46); PO2 ABG 135 mmHg (65-108); SAT O2 ABG 98 % (92-99)
--- NOTE | 2018-07-05 22:40 | PHYS DOC ---
Past Medical History Past Medical History: Angina, CAD, CHF, COPD, Diabetes-Type II, High Cholesterol, Hypertension, [place], Other Additional Past Medical Histor: O2 DEPENDENT 3 L PRN, chronic pain Past Surgical History: Cholecystectomy, Coronary Bypass Surgery, Hysterectomy, Knee Replacement, Pacemaker, Other Additional Past Surgical Histo: STENTS Alcohol Use: None Drug Use: None Adult General Chief Complaint Chief Complaint: SHORTNESS OF BREATH HPI HPI Patient is a 63 year old -[place] female with history of CAD, angina, CHF, who presents with progressive shortness of breath with minimal exertion over the past 3 days. Patient also reports orthopnea and dyspnea on exertion. States she uses supplemental oxygen, 3 L when necessary the side continues oxygen use for the past 2 days. Reports occasional cough and nausea. No fever chills, vomiting or sweats. Denies missed medications. Review of Systems Review of Systems Review of symptoms as per history of present illness. All other review symptoms are negative. All other systems were reviewed and found to be within normal limits, except as documented in this note. Current Medications Current Medications Current Medications Medications (Trade) Dose Ordered Sig/Susan Start Time Stop Time Status Last Admin Dose Admin Fentanyl Citrate (Fentanyl 2ml Vial) 25 mcg 1X ONCE 07/05/18 22:30 07/05/18 22:31 UNV Ondansetron HCl (Zofran) 4 mg 1X ONCE 07/05/18 22:30 07/05/18 22:31 UNV Allergies Allergies Allergies Coded Allergies Type Severity Reaction Last Updated Verified ibuprofen Adverse Reaction Intermediate Nausea and Vomiting 12/02/17 Yes Physical Exam Physical Exam Constitutional: Well developed, well nourished, no acute distress, non-toxic appearance. [] HENT: Normocephalic, atraumatic, bilateral external ears normal, oropharynx moist, no oral exudates, nose normal. [] Eyes: PERRLA, EOMI, conjunctiva normal, no discharge. [] Neck: Normal range of motion, no tenderness, supple, no stridor. [] Cardiovascular:Heart rate regular rhythm, no murmur [] Lungs & Thorax: Respirations, mildly cachectic, diminished coarse breath sounds in bases. Bilateral lower extremity edema.[] Abdomen: Bowel sounds normal, soft. [] Skin: Warm, dry, no erythema. [] Back: No tenderness. [] Extremities: No tenderness, no edema. [] Neurologic: Alert and oriented X 3, normal motor function, normal sensory function, no focal deficits noted. [] Psychologic: Affect normal, judgement normal, mood normal. [] Current Patient Data Vital Signs Vital Signs Date Time Temp Pulse Resp B/P (MAP) Pulse Ox O2 Delivery O2 Flow Rate FiO2 07/05/18 20:28 99.3 88 16 159/72 (101) 94 Room Air 99.3 Lab Values Laboratory Tests Test 07/05/18 20:56 07/05/18 21:56 White Blood Count 9.5 x10^3/uL (4.0-11.0) Red Blood Count 4.13 x10^6/uL (3.50-5.40) Hemoglobin 11.1 g/dL (12.0-15.5) L Hematocrit 34.4 % (36.0-47.0) L Mean Corpuscular Volume 83 fL (79-100) Mean Corpuscular Hemoglobin 27 pg (25-35) Mean Corpuscular Hemoglobin Concent 32 g/dL (31-37) Red Cell Distribution Width 17.1 % (11.5-14.5) H Platelet Count 341 x10^3/uL (140-400) Neutrophils (%) (Auto) 80 % (31-73) H Lymphocytes (%) (Auto) 13 % (24-48) L Monocytes (%) (Auto) 7 % (0-9) Eosinophils (%) (Auto) 0 % (0-3) Basophils (%) (Auto) 0 % (0-3) Neutrophils # (Auto) 7.5 x10^3uL (1.8-7.7) Lymphocytes # (Auto) 1.3 x10^3/uL (1.0-4.8) Monocytes # (Auto) 0.6 x10^3/uL (0.0-1.1) Eosinophils # (Auto) 0.0 x10^3/uL (0.0-0.7) Basophils # (Auto) 0.0 x10^3/uL (0.0-0.2) Prothrombin Time 24.5 SEC (11.7-14.0) H Prothrombin Time INR 2.2 (0.8-1.1) H Sodium Level 138 mmol/L (136-145) Potassium Level 3.9 mmol/L (3.5-5.1) Chloride Level 100 mmol/L (98-107) Carbon Dioxide Level 32 mmol/L (21-32) Anion Gap 6 (6-14) Blood Urea Nitrogen 12 mg/dL (7-20) Creatinine 0.7 mg/dL (0.6-1.0) Estimated GFR (Cockcroft-Gault) 101.9 BUN/Creatinine Ratio 17 (6-20) Glucose Level 152 mg/dL (70-99) H Calcium Level 9.6 mg/dL (8.5-10.1) Total Bilirubin 0.3 mg/dL (0.2-1.0) Aspartate Amino Transferase (AST) 21 U/L (15-37) Alanine Aminotransferase (ALT) 28 U/L (14-59) Alkaline Phosphatase 93 U/L (46-116) Troponin I Quantitative < 0.017 ng/mL (0.000-0.055) GE-Wcq-Q-Type Natriuretic Peptide 860 pg/mL (0-124) H Total Protein 7.7 g/dL (6.4-8.2) Albumin 3.3 g/dL (3.4-5.0) L Albumin/Globulin Ratio 0.8 (1.0-1.7) L O2 Saturation 98 % (92-99) Arterial Blood pH 7.51 (7.35-7.45) H Arterial Blood pCO2 at Patient Temp 38 mmHg (35-46) Arterial Blood pO2 at Patient Temp 135 mmHg (65-108) H Arterial Blood HCO3 30 mmol/L (21-28) H Arterial Blood Base Excess 6 mmol/L (-3-3) H FiO2 36 Laboratory Tests 07/05/18 20:56 Laboratory Tests 07/05/18 20:56 EKG EKG [EKG: LVH, sinus rhythm, rate 80, nonspecific ST-T wave changes.] Radiology/Procedures Radiology/Procedures [Chest x-ray: Cardiomegaly, pulmonary vascular congestion.] Course & Med Decision Making Course & Med Decision Making Pertinent Labs and Imaging studies reviewed. (See chart for details) [Patient given fentanyl and zofran for chest painand nausea. Lasix for congestive heart failure. Patient resting completely feels improved.] Dragon Disclaimer Dragon Disclaimer This electronic medical record was generated, in whole or in part, using a voice recognition dictation system. Departure Departure Impression: Primary Impression: Chest pain Additional Impression: CHF exacerbation Disposition: 09 ADMITTED INPATIENT Admitting Physician: Kelsie Macias Condition: STABLE Referrals: JENSEN CUEVAS (PCP) Problem Qualifiers PERICO HURST DO Jul 05, 2018 22:40
[2018-07-05] MEDS ORDERED: ONDANSETRON PF 4 MG/2 ML VIAL. IV PRN (22:45)
[2018-07-05] MEDS ORDERED: FUROSEMIDE 40 MG/4 ML VIAL. IVP ONE (23:00)
[2018-07-05] MEDS ORDERED: ONDANSETRON PF 4 MG/2 ML VIAL. IV ONE (23:00)
[2018-07-05] MEDS ORDERED: fentaNYL PF VIAL 100 MCG/2 ML VIAL IV ONE (23:00)
[2018-07-06] VITALS (7 sets, daily range): BP systolic 132–177; BP diastolic 42–75
[2018-07-06] MEDS: MORPHINE SULFATE 2 MG/ML VIAL. IV PRN ×3 (01:27→07:57)
[2018-07-06] MEDS ORDERED: WARF-31 PO (01:30)
[2018-07-06 05:56] LABS: CALCIUM 9.3 mg/dL (8.5-10.1); CREATININE 0.9 mg/dL (0.6-1.0); GFR 76.3; POTASSIUM 3.7 mmol/L (3.5-5.1)
--- NOTE | 2018-07-06 07:33 | EKG ---
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
[2018-07-06] MEDS: NITROGLYCERIN OINT 1 GM PACKET. TP SCH ×3 (08:51→12:00)
[2018-07-06] MEDS ORDERED: FUROSEMIDE 40 MG/4 ML VIAL. IVP SCH (09:00)
--- NOTE | 2018-07-06 09:33 | PDOC2 ---
GABRIELLA VÁSQUEZ DOCTOR ASSISTANT 07/06/18 0933: CARDIAC CONSULT DATE OF CONSULT Date of Consult DATE: 07/06/18 TIME: 09:24 REASON FOR CONSULT Reason for Consult: Chest pain REFERRING PHYSICIAN Referring Physician: Dr. Tidwell SOURCE Source: Chart review, Patient HISTORY OF PRESENT ILLNESS HISTORY OF PRESENT ILLNESS This is a 63 yo female, with a history of CAD s/p CABG, CHF, hypertension, hyperlipidemia, DMII, and SS s/p PPM, who presented secondary to chest pain and shortness of breath. Patient reports left chest pain began this past Friday. Has been intermittent aching. Worse with certain movements and with applying pressure to the left chest. On Friday, woke up with nausea.Vomited a couple of time. That evening, had some shortness of breath upon exertion. [place] worse Friday, so she came into the ED for further evaluation and treatment. Denies any orthopnea, LE edema, palpitations, dizziness, or diaphoresis. Reports compliance with medications. Previously followed with Dr. Arias. Now follows with Dr. Pat. Was taken off Plavix and started on warfarin this past April for unknown reasons. PAST MEDICAL HISTORY Past Medical History Cardiovascular: CAD, CHF, HTN, [place], Hyperlipidemia, Other (SSS) Pulmonary: COPD CENTRAL NERVOUS SYSTEM: Periperal neuropathy GI: GERD Heme/Onc: No pertinent hx Hepatobiliary: Cholelithiasis Psych: No pertinent hx Musculoskeletal: Osteoarthritis Rheumatologic: No pertinent hx Infectious disease: No pertinent hx Renal/: Chronic renal insuff Endocrine: Diabetes (2) Dermatology: No pertinent hx PAST SURGICAL HISTORY Past Surgical History Pacemaker ([facility]), Appendectomy, Cholecystectomy, Total knee replacement (left ), Hysterectomy FAMILY HISTORY Family History: Diabetes, Heart Disease SOCIAL HISTORY Social History Smoke: quit ALCOHOL: none Drugs: None Lives: with family CURRENT MEDICATIONS CURRENT MEDICATIONS Current Medications Medications (Trade) Dose Ordered Sig/Susan Route PRN Reason Start Time Stop Time Status Last Admin Dose Admin Fentanyl Citrate (Fentanyl 2ml Vial) 25 mcg 1X ONCE IV 07/05/18 23:00 07/05/18 23:01 DC 07/05/18 22:46 Ondansetron HCl (Zofran) 4 mg 1X ONCE IV 07/05/18 23:00 07/05/18 23:01 DC 07/05/18 22:45 Furosemide (Lasix) 40 mg 1X ONCE IVP 07/05/18 23:00 07/05/18 23:01 DC 07/05/18 22:45 Morphine Sulfate (Morphine Sulfate) 2 mg PRN Q2HR PRN IV SEVERE PAIN 07/05/18 22:45 07/06/18 22:44 07/06/18 07:57 ALLERGIES ALLERGIES: Coded Allergies: ibuprofen (Verified Adverse Reaction, Intermediate, Nausea and Vomiting, ) ROS Review of System 14 point ROS conducted with pertinent positives noted above in HPI. PHYSICAL EXAM PHYSICAL EXAM General: Alert, Oriented X3, Cooperative, No acute distress HEENT: Atraumatic, Mucous membr. moist/pink Lungs: Normal air movement, left chest tenderness upon palpation Heart: Regular rate (paced), Normal S1, Normal S2, Other (2/6 systolic murmur to LLS border) Abdomen: Soft, No tenderness Extremities: No cyanosis, No edema Skin: No breakdown, No significant lesion Neuro: Normal speech, Sensation intact Psych/Mental Status: Mental status NL, Mood NL MUSCULOSKELETAL: Osteoarthritic changes both hands VITALS VITALS Vital Signs Date Time Temp Pulse Resp B/P (MAP) Pulse Ox O2 Delivery O2 Flow Rate FiO2 07/06/18 07:57 16 Nasal Cannula 2.0 07/06/18 07:00 98.6 63 166/75 (105) 98 98.6 LABS Lab: Laboratory Tests Test 07/05/18 20:56 07/05/18 21:56 07/06/18 01:23 07/06/18 04:45 White Blood Count 9.5 x10^3/uL (4.0-11.0) Red Blood Count 4.13 x10^6/uL (3.50-5.40) Hemoglobin 11.1 g/dL (12.0-15.5) Hematocrit 34.4 % (36.0-47.0) Mean Corpuscular Volume 83 fL (79-100) Mean Corpuscular Hemoglobin 27 pg (25-35) Mean Corpuscular Hemoglobin Concent 32 g/dL (31-37) Red Cell Distribution Width 17.1 % (11.5-14.5) Platelet Count 341 x10^3/uL (140-400) Neutrophils (%) (Auto) 80 % (31-73) Lymphocytes (%) (Auto) 13 % (24-48) Monocytes (%) (Auto) 7 % (0-9) Eosinophils (%) (Auto) 0 % (0-3) Basophils (%) (Auto) 0 % (0-3) Neutrophils # (Auto) 7.5 x10^3uL (1.8-7.7) Lymphocytes # (Auto) 1.3 x10^3/uL (1.0-4.8) Monocytes # (Auto) 0.6 x10^3/uL (0.0-1.1) Eosinophils # (Auto) 0.0 x10^3/uL (0.0-0.7) Basophils # (Auto) 0.0 x10^3/uL (0.0-0.2) Prothrombin Time 24.5 SEC (11.7-14.0) Prothromb Time International Ratio 2.2 (0.8-1.1) Sodium Level 138 mmol/L (136-145) 142 mmol/L (136-145) Potassium Level 3.9 mmol/L (3.5-5.1) 3.7 mmol/L (3.5-5.1) Chloride Level 100 mmol/L (98-107) 101 mmol/L (98-107) Carbon Dioxide Level 32 mmol/L (21-32) 32 mmol/L (21-32) Anion Gap 6 (6-14) 9 (6-14) Blood Urea Nitrogen 12 mg/dL (7-20) 15 mg/dL (7-20) Creatinine 0.7 mg/dL (0.6-1.0) 0.9 mg/dL (0.6-1.0) Estimated GFR (Cockcroft-Gault) 101.9 76.3 BUN/Creatinine Ratio 17 (6-20) Glucose Level 152 mg/dL (70-99) 141 mg/dL (70-99) Calcium Level 9.6 mg/dL (8.5-10.1) 9.3 mg/dL (8.5-10.1) Total Bilirubin 0.3 mg/dL (0.2-1.0) Aspartate Amino Transf (AST/SGOT) 21 U/L (15-37) Alanine Aminotransferase (ALT/SGPT) 28 U/L (14-59) Alkaline Phosphatase 93 U/L (46-116) Troponin I Quantitative < 0.017 ng/mL (0.000-0.055) < 0.017 ng/mL (0.000-0.055) 0.017 ng/mL (0.000-0.055) FM-Ahb-Q-Type Natriuretic Peptide 860 pg/mL (0-124) Total Protein 7.7 g/dL (6.4-8.2) Albumin 3.3 g/dL (3.4-5.0) Albumin/Globulin Ratio 0.8 (1.0-1.7) O2 Saturation 98 % (92-99) Arterial Blood pH 7.51 (7.35-7.45) Arterial Blood pCO2 at Patient Temp 38 mmHg (35-46) Arterial Blood pO2 at Patient Temp 135 mmHg (65-108) Arterial Blood HCO3 30 mmol/L (21-28) Arterial Blood Base Excess 6 mmol/L (-3-3) FiO2 36 Test 07/06/18 07:23 Glucose (Fingerstick) 101 mg/dL (70-99) ECHOCARDIOGRAM ECHOCARDIOGRAM <Conclusion> Technically difficult study. The left ventricle is normal size. Left ventricular systolic function appears intact. Ejection fraction of 50-55%. There is mild concentric left ventricular hypertrophy. The aortic valve is not well visualized but appears to be functioning normally by Doppler interrogation. There is no significant aortic valvular stenosis. Doppler and Color Flow revealed no significant aortic regurgitation. Doppler and Color Flow revealed trace mitral valve regurgitation. Doppler and Color Flow revealed trace tricuspid valve regurgitation. DATE: 03/11/18 1630 STRESS TEST STRESS TEST Conclusion 1. Myocardial viability study was obtained after injection of 3 mCi of thallium 101. 2. Images were obtained. After waiting for 4 hours an additional 1 mCi of thallium was injected and further images were obtained. 3. 24-hour images were obtained the next day. 4. Non viability is seen over the apex.The rRest of the myocardium is viable. DATE: 01/12/17 1206 HEART CATH HEART CATH FINDINGS 1. Hemodynamics: Left ventricular end-diastolic pressure 20 mmHg. No pullback gradient across the aortic valve. 2. Left ventriculography: Akinetic distal anterior wall and the entire apical wall with ejection fraction estimated at 40%. No significant mitral regurgitation was seen. 3. Coronary and bypass graft angiography: a. The left main coronary artery arose from the left sinus of Valsalva, gave rise to the left anterior descending and left circumflex arteries and did not show any significant stenosis. b. The left anterior descending artery did not show any significant stenosis. c. The left circumflex artery showed 40% stenosis involving the proximal segment of the obtuse marginal branch. d. The right coronary artery was a large and dominant vessel arising from the right sinus of Valsalva that did not show any significant stenosis. e. The saphenous vein graft to the obtuse marginal branch was widely patent. d. The left internal mammary artery graft to the left anterior descending artery was patent. Conclusion 1. 40% stenosis involving the obtuse marginal branch of left circumflex artery without any other significant stenoses. The left internal mammary artery graft to the left anterior descending artery and the saphenous vein graft to the obtuse marginal branch were patent. Of note, patient seems to have had CABG for thrombus in left main coronary artery and left anterior descending artery in the past. No lesions were noted because the thrombus resolved. 2. Akinetic distal anterior wall and the entire apical wall with ejection fraction estimated at 40%. Recommendations Medical Therapy DATE: 05/18/18 1225 ASSESSMENT/PLAN ASSESSMENT/PLAN 1. Chest pain, atypical. AMI ruled out. Most probable MSK in origin as pain reproducible with palpation to left chest. 2. Mild acute on chronic diastolic HF; LVEF 50-55%. improved with IV Lasix in ED. 3. CAD: past CABG. Recent cardiac cath with patent grafts as noted above. 4. Hypertension; mildly elevated 5. VIOLETTA/morbid obesity: CPAP broken uses O2 at hs. 6. Severe pulmonary HTN 7. CKD; stable 8. DM2/HLP 9. SSS s/p PPM ([facility]) 10. anticoagulation with warfarin; INR 2.2. Recommendations Continue home Lasix therapy. Secondary prevention measures Resume BP meds No further cardiac workup warranted. F/u with Dr. Pat as previously scheduled Thanks fo consultation; please call with questions. MISBAH HUFFMAN MD 07/06/18 2748: CARDIAC CONSULT ASSESSMENT/PLAN ASSESSMENT/PLAN Patient seen and examined. Agree with SUPERVISOR [employer]ESS ROOM's assessment and plan. Chest pain with atypical features and most probably musculoskeletal. Myocardial infarction has been ruled out. Acute on chronic diastolic heart failure better compensated after diuresis. Recent cardiac catheterization results noted above. No further cardiac workup is indicated at this time. Thank you for your consultation. GABRIELLA VÁSQUEZ APRN Jul 06, 2018 09:33 MISBAH HUFFMAN MD Jul 06, 2018 16:27
--- NOTE | 2018-07-06 11:02 | PDOC1 ---
History and Physical Date of Admission Date of Admission DATE: 07/06/18 TIME: 10:55 Identification/Chief Complaint Chief Complaint chest pain sob Source Source: Patient History of Present Illness History of Present Illness 63 yo female, with a history of CAD s/p CABG, CHF, hypertension, hyperlipidemia , DMII, and SS s/p PPM, who presents with chest pain and SOB since several days described as aching, worsening with mvt and reproducible on palpation. shortness of breath mostly upon exertion. patient did not feel well so came to ER Friday. denies LE edema, palpitations, takes all meds as prescribed. patient was on Plavix but started on warfarin in Apr. Hospitalist called for admission. Past Medical History Cardiovascular: CAD, CHF, HTN, AK, Hyperlipidemia, Other Pulmonary: COPD CENTRAL NERVOUS SYSTEM: Periperal neuropathy GI: GERD Heme/Onc: No pertinent hx Hepatobiliary: Cholelithiasis Psych: No pertinent hx Musculoskeletal: Osteoarthritis Rheumatologic: No pertinent hx Infectious disease: No pertinent hx Renal/: Chronic renal insuff Endocrine: Diabetes Past Surgical History Past Surgical History: Pacemaker, Appendectomy, Cholecystectomy, Total knee replacement, Hysterectomy Family History Family History: Diabetes, Heart Disease Family History: Parent Social History ALCOHOL: none Drugs: None Current Medications Current Medications Current Medications Fentanyl Citrate (Fentanyl 2ml Vial) 25 mcg 1X ONCE IV Last administered on at 22:46; Start 07/05/18 at 23:00; Stop 07/05/18 at 23:01; Status DC Ondansetron HCl (Zofran) 4 mg 1X ONCE IV Last administered on 07/05/18at 22:45 ; Start 07/05/18 at 23:00; Stop 07/05/18 at 23:01; Status DC Furosemide (Lasix) 40 mg 1X ONCE IVP Last administered on 07/05/18at 22:45; Start 07/05/18 at 23:00; Stop 07/05/18 at 23:01; Status DC Ondansetron HCl (Zofran) 4 mg PRN Q8HRS PRN IV NAUSEA/VOMITING 1ST CHOICE; Start 07/05/18 at 22:45; Stop 07/06/18 at 22:44 Morphine Sulfate (Morphine Sulfate) 2 mg PRN Q2HR PRN IV SEVERE PAIN Last administered on 07/06/18at 07:57; Start 07/05/18 at 22:45; Stop 07/06/18 at 22:44 Furosemide (Lasix) 40 mg [id number] IVP ; Start 07/06/18 at 09:00 Nitroglycerin (Nitro-Bid Oint) 0.5 inch Q6HRS TP ; Start 07/06/18 at 00:00 Amlodipine Besylate (Norvasc) 10 mg DAILY PO ; Start 07/06/18 at 11:00 Aspirin (Ecotrin) 81 mg DAILY PO ; Start 07/06/18 at 11:00 Atorvastatin Calcium (Lipitor) 20 mg HS PO ; Start 07/06/18 at 21:00 Furosemide (Lasix) 80 mg BID PO ; Start 07/06/18 at 21:00; Status UNV Metoprolol Succinate (Toprol Xl) 50 mg DAILY PO ; Start 07/06/18 at 10:30 Losartan Potassium (Cozaar) 100 mg DAILY PO ; Start 07/06/18 at 10:30 Active Scripts Active Tessalon Perle (Benzonatate) 100 Mg Capsule 1 Cap PO TID Proair Hfa Inhaler (Albuterol Sulfate) 8.5 Gm Hfa.aer.ad 1 Puff INH PRN Q6HRS PRN Prednisone 20 Mg Tablet 40 Mg PO DAILY 3 Days Toprol Xl (Metoprolol Succinate) 50 Mg Tab.er.24h 50 Mg PO DAILY MDD 1 Percocet 10-325 Mg Tablet (Oxycodone/Acetaminophen) 1 Each Tablet 2 Tab PO PRN Q4-6HRS PRN MDD 1 Amaryl (Glimepiride) 2 Mg Tablet 2 Mg PO DAILY 30 Days Reported Warfarin Sodium 5 Mg Tablet 5 Mg PO DAILY Calcium 500 + Vit D 200 Caplet (Calcium Carbonate/Vitamin D3) 1 Each Tablet 1 Each PO DAILY Zolpidem Tartrate 5 Mg Tablet 5 Mg PO QHS Clonazepam 0.5 Mg Tablet 0.5 Mg PO TID Fluoxetine Hcl 20 Mg Capsule 1 Cap PO DAILY Amlodipine Besylate 10 Mg Tablet 10 Mg PO DAILY Famotidine 20 Mg Tablet 20 Mg PO BID Losartan Potassium 100 Mg Tablet 100 Mg PO DAILY Furosemide 80 Mg Tablet 80 Mg PO BID Albuterol Sulfate Conc Neb Soln (Albuterol Sulfate) 2.5 Mg/0.5 Ml Vial.neb 5 Mg NEB PRN PRN Ferrous Sulfate 325 Mg Tablet 1 Tab PO DAILY NITROGLYCERIN SubLingual (Nitroglycerin) 0.4 Mg Tab.subl 0.4 Mg SL PRN Q5MIN PRN Atorvastatin Calcium 20 Mg Tablet 20 Mg PO HS Aspir 81 (Aspirin) 81 Mg Tablet.dr 1 Tab PO DAILY Allergies Allergies: Coded Allergies: ibuprofen (Verified Adverse Reaction, Intermediate, Nausea and Vomiting, ) Physical Exam General: Alert, Oriented X3 Breasts: Normal, No suspicious masses Extremities: No clubbing, No cyanosis, No edema Neuro: Normal gait, Normal speech Psych/Mental Status: Mental status NL Vitals Vitals Vital Signs Date Time Temp Pulse Resp B/P (MAP) Pulse Ox O2 Delivery O2 Flow Rate FiO2 07/06/18 07:57 16 Nasal Cannula 2.0 07/06/18 07:00 98.6 63 166/75 (105) 98 98.6 Labs Labs Laboratory Tests Test 07/05/18 20:56 07/05/18 21:56 07/06/18 01:23 07/06/18 04:45 White Blood Count 9.5 x10^3/uL (4.0-11.0) Red Blood Count 4.13 x10^6/uL (3.50-5.40) Hemoglobin 11.1 g/dL (12.0-15.5) Hematocrit 34.4 % (36.0-47.0) Mean Corpuscular Volume 83 fL (79-100) Mean Corpuscular Hemoglobin 27 pg (25-35) Mean Corpuscular Hemoglobin Concent 32 g/dL (31-37) Red Cell Distribution Width 17.1 % (11.5-14.5) Platelet Count 341 x10^3/uL (140-400) Neutrophils (%) (Auto) 80 % (31-73) Lymphocytes (%) (Auto) 13 % (24-48) Monocytes (%) (Auto) 7 % (0-9) Eosinophils (%) (Auto) 0 % (0-3) Basophils (%) (Auto) 0 % (0-3) Neutrophils # (Auto) 7.5 x10^3uL (1.8-7.7) Lymphocytes # (Auto) 1.3 x10^3/uL (1.0-4.8) Monocytes # (Auto) 0.6 x10^3/uL (0.0-1.1) Eosinophils # (Auto) 0.0 x10^3/uL (0.0-0.7) Basophils # (Auto) 0.0 x10^3/uL (0.0-0.2) Prothrombin Time 24.5 SEC (11.7-14.0) Prothromb Time International Ratio 2.2 (0.8-1.1) Sodium Level 138 mmol/L (136-145) 142 mmol/L (136-145) Potassium Level 3.9 mmol/L (3.5-5.1) 3.7 mmol/L (3.5-5.1) Chloride Level 100 mmol/L (98-107) 101 mmol/L (98-107) Carbon Dioxide Level 32 mmol/L (21-32) 32 mmol/L (21-32) Anion Gap 6 (6-14) 9 (6-14) Blood Urea Nitrogen 12 mg/dL (7-20) 15 mg/dL (7-20) Creatinine 0.7 mg/dL (0.6-1.0) 0.9 mg/dL (0.6-1.0) Estimated GFR (Cockcroft-Gault) 101.9 76.3 BUN/Creatinine Ratio 17 (6-20) Glucose Level 152 mg/dL (70-99) 141 mg/dL (70-99) Calcium Level 9.6 mg/dL (8.5-10.1) 9.3 mg/dL (8.5-10.1) Total Bilirubin 0.3 mg/dL (0.2-1.0) Aspartate Amino Transf (AST/SGOT) 21 U/L (15-37) Alanine Aminotransferase (ALT/SGPT) 28 U/L (14-59) Alkaline Phosphatase 93 U/L (46-116) Troponin I Quantitative < 0.017 ng/mL (0.000-0.055) < 0.017 ng/mL (0.000-0.055) 0.017 ng/mL (0.000-0.055) OR-Tzf-A-Type Natriuretic Peptide 860 pg/mL (0-124) Total Protein 7.7 g/dL (6.4-8.2) Albumin 3.3 g/dL (3.4-5.0) Albumin/Globulin Ratio 0.8 (1.0-1.7) O2 Saturation 98 % (92-99) Arterial Blood pH 7.51 (7.35-7.45) Arterial Blood pCO2 at Patient Temp 38 mmHg (35-46) Arterial Blood pO2 at Patient Temp 135 mmHg (65-108) Arterial Blood HCO3 30 mmol/L (21-28) Arterial Blood Base Excess 6 mmol/L (-3-3) FiO2 36 Test 07/06/18 07:23 Glucose (Fingerstick) 101 mg/dL (70-99) Laboratory Tests Test 07/05/18 20:56 07/05/18 21:56 07/06/18 01:23 07/06/18 04:45 White Blood Count 9.5 x10^3/uL (4.0-11.0) Red Blood Count 4.13 x10^6/uL (3.50-5.40) Hemoglobin 11.1 g/dL (12.0-15.5) Hematocrit 34.4 % (36.0-47.0) Mean Corpuscular Volume 83 fL (79-100) Mean Corpuscular Hemoglobin 27 pg (25-35) Mean Corpuscular Hemoglobin Concent 32 g/dL (31-37) Red Cell Distribution Width 17.1 % (11.5-14.5) Platelet Count 341 x10^3/uL (140-400) Neutrophils (%) (Auto) 80 % (31-73) Lymphocytes (%) (Auto) 13 % (24-48) Monocytes (%) (Auto) 7 % (0-9) Eosinophils (%) (Auto) 0 % (0-3) Basophils (%) (Auto) 0 % (0-3) Neutrophils # (Auto) 7.5 x10^3uL (1.8-7.7) Lymphocytes # (Auto) 1.3 x10^3/uL (1.0-4.8) Monocytes # (Auto) 0.6 x10^3/uL (0.0-1.1) Eosinophils # (Auto) 0.0 x10^3/uL (0.0-0.7) Basophils # (Auto) 0.0 x10^3/uL (0.0-0.2) Prothrombin Time 24.5 SEC (11.7-14.0) Prothromb Time International Ratio 2.2 (0.8-1.1) Sodium Level 138 mmol/L (136-145) 142 mmol/L (136-145) Potassium Level 3.9 mmol/L (3.5-5.1) 3.7 mmol/L (3.5-5.1) Chloride Level 100 mmol/L (98-107) 101 mmol/L (98-107) Carbon Dioxide Level 32 mmol/L (21-32) 32 mmol/L (21-32) Anion Gap 6 (6-14) 9 (6-14) Blood Urea Nitrogen 12 mg/dL (7-20) 15 mg/dL (7-20) Creatinine 0.7 mg/dL (0.6-1.0) 0.9 mg/dL (0.6-1.0) Estimated GFR (Cockcroft-Gault) 101.9 76.3 BUN/Creatinine Ratio 17 (6-20) Glucose Level 152 mg/dL (70-99) 141 mg/dL (70-99) Calcium Level 9.6 mg/dL (8.5-10.1) 9.3 mg/dL (8.5-10.1) Total Bilirubin 0.3 mg/dL (0.2-1.0) Aspartate Amino Transf (AST/SGOT) 21 U/L (15-37) Alanine Aminotransferase (ALT/SGPT) 28 U/L (14-59) Alkaline Phosphatase 93 U/L (46-116) Troponin I Quantitative < 0.017 ng/mL (0.000-0.055) < 0.017 ng/mL (0.000-0.055) 0.017 ng/mL (0.000-0.055) MF-Wjc-K-Type Natriuretic Peptide 860 pg/mL (0-124) Total Protein 7.7 g/dL (6.4-8.2) Albumin 3.3 g/dL (3.4-5.0) Albumin/Globulin Ratio 0.8 (1.0-1.7) O2 Saturation 98 % (92-99) Arterial Blood pH 7.51 (7.35-7.45) Arterial Blood pCO2 at Patient Temp 38 mmHg (35-46) Arterial Blood pO2 at Patient Temp 135 mmHg (65-108) Arterial Blood HCO3 30 mmol/L (21-28) Arterial Blood Base Excess 6 mmol/L (-3-3) FiO2 36 Test 4/15/19 07:23 Glucose (Fingerstick) 101 mg/dL (70-99) VTE Prophylaxis Ordered VTE Prophylaxis Devices: No VTE Pharmacological Prophylaxi: Yes Assessment/Plan Assessment/Plan Assessment 1. Chest pain, atypical. AMI ruled out. Most probable MSK 2. Mild acute on chronic diastolic HF; LVEF 50-55%. improved with IV Lasix in ED. 3. CAD: past CABG. Recent cardiac cath 05/12 shows patent grafts 4. Hypertension 5. VIOLETTA/morbid obesity: CPAP 6. Severe pulmonary HTN 7. CKD; stable 8. DM2/HLP 9. SSS s/p PPM ([facility]) 10. anticoagulation with warfarin; INR 2.2. Plan no plans for intervention per cards continue home lasix and BP meds fu with cards as outpatient. dc today MICHELLE THOMPSON MD Jul 06, 2018 11:01
--- NOTE | 2018-07-06 11:07 | PDOC3 ---
Discharge Summary Visit Information Date of Admission: Jul 05, 2018 Date of Discharge: Jul 06, 2018 Final Diagnosis Non cardiac chest pain, likely MSK Brief Hospital Course Allergies Allergies Coded Allergies Type Severity Reaction Last Updated Verified ibuprofen Adverse Reaction Intermediate Nausea and Vomiting 12/02/17 Yes Vital Signs Vital Signs Date Time Temp Pulse Resp B/P (MAP) Pulse Ox O2 Delivery O2 Flow Rate FiO2 07/06/18 07:57 16 Nasal Cannula 2.0 07/06/18 07:00 98.6 63 166/75 (105) 98 98.6 Lab Results Laboratory Tests Test 07/05/18 20:56 07/05/18 21:56 07/06/18 01:23 07/06/18 04:45 White Blood Count 9.5 x10^3/uL (4.0-11.0) Red Blood Count 4.13 x10^6/uL (3.50-5.40) Hemoglobin 11.1 g/dL (12.0-15.5) Hematocrit 34.4 % (36.0-47.0) Mean Corpuscular Volume 83 fL (79-100) Mean Corpuscular Hemoglobin 27 pg (25-35) Mean Corpuscular Hemoglobin Concent 32 g/dL (31-37) Red Cell Distribution Width 17.1 % (11.5-14.5) Platelet Count 341 x10^3/uL (140-400) Neutrophils (%) (Auto) 80 % (31-73) Lymphocytes (%) (Auto) 13 % (24-48) Monocytes (%) (Auto) 7 % (0-9) Eosinophils (%) (Auto) 0 % (0-3) Basophils (%) (Auto) 0 % (0-3) Neutrophils # (Auto) 7.5 x10^3uL (1.8-7.7) Lymphocytes # (Auto) 1.3 x10^3/uL (1.0-4.8) Monocytes # (Auto) 0.6 x10^3/uL (0.0-1.1) Eosinophils # (Auto) 0.0 x10^3/uL (0.0-0.7) Basophils # (Auto) 0.0 x10^3/uL (0.0-0.2) Prothrombin Time 24.5 SEC (11.7-14.0) Prothromb Time International Ratio 2.2 (0.8-1.1) Sodium Level 138 mmol/L (136-145) 142 mmol/L (136-145) Potassium Level 3.9 mmol/L (3.5-5.1) 3.7 mmol/L (3.5-5.1) Chloride Level 100 mmol/L (98-107) 101 mmol/L (98-107) Carbon Dioxide Level 32 mmol/L (21-32) 32 mmol/L (21-32) Anion Gap 6 (6-14) 9 (6-14) Blood Urea Nitrogen 12 mg/dL (7-20) 15 mg/dL (7-20) Creatinine 0.7 mg/dL (0.6-1.0) 0.9 mg/dL (0.6-1.0) Estimated GFR (Cockcroft-Gault) 101.9 76.3 BUN/Creatinine Ratio 17 (6-20) Glucose Level 152 mg/dL (70-99) 141 mg/dL (70-99) Calcium Level 9.6 mg/dL (8.5-10.1) 9.3 mg/dL (8.5-10.1) Total Bilirubin 0.3 mg/dL (0.2-1.0) Aspartate Amino Transf (AST/SGOT) 21 U/L (15-37) Alanine Aminotransferase (ALT/SGPT) 28 U/L (14-59) Alkaline Phosphatase 93 U/L (46-116) Troponin I Quantitative < 0.017 ng/mL (0.000-0.055) < 0.017 ng/mL (0.000-0.055) 0.017 ng/mL (0.000-0.055) UQ-Iit-F-Type Natriuretic Peptide 860 pg/mL (0-124) Total Protein 7.7 g/dL (6.4-8.2) Albumin 3.3 g/dL (3.4-5.0) Albumin/Globulin Ratio 0.8 (1.0-1.7) O2 Saturation 98 % (92-99) Arterial Blood pH 7.51 (7.35-7.45) Arterial Blood pCO2 at Patient Temp 38 mmHg (35-46) Arterial Blood pO2 at Patient Temp 135 mmHg (65-108) Arterial Blood HCO3 30 mmol/L (21-28) Arterial Blood Base Excess 6 mmol/L (-3-3) FiO2 36 Test 07/06/18 07:23 Glucose (Fingerstick) 101 mg/dL (70-99) Laboratory Tests Test 07/05/18 20:56 07/05/18 21:56 07/06/18 01:23 07/06/18 04:45 White Blood Count 9.5 x10^3/uL (4.0-11.0) Red Blood Count 4.13 x10^6/uL (3.50-5.40) Hemoglobin 11.1 g/dL (12.0-15.5) Hematocrit 34.4 % (36.0-47.0) Mean Corpuscular Volume 83 fL (79-100) Mean Corpuscular Hemoglobin 27 pg (25-35) Mean Corpuscular Hemoglobin Concent 32 g/dL (31-37) Red Cell Distribution Width 17.1 % (11.5-14.5) Platelet Count 341 x10^3/uL (140-400) Neutrophils (%) (Auto) 80 % (31-73) Lymphocytes (%) (Auto) 13 % (24-48) Monocytes (%) (Auto) 7 % (0-9) Eosinophils (%) (Auto) 0 % (0-3) Basophils (%) (Auto) 0 % (0-3) Neutrophils # (Auto) 7.5 x10^3uL (1.8-7.7) Lymphocytes # (Auto) 1.3 x10^3/uL (1.0-4.8) Monocytes # (Auto) 0.6 x10^3/uL (0.0-1.1) Eosinophils # (Auto) 0.0 x10^3/uL (0.0-0.7) Basophils # (Auto) 0.0 x10^3/uL (0.0-0.2) Prothrombin Time 24.5 SEC (11.7-14.0) Prothromb Time International Ratio 2.2 (0.8-1.1) Sodium Level 138 mmol/L (136-145) 142 mmol/L (136-145) Potassium Level 3.9 mmol/L (3.5-5.1) 3.7 mmol/L (3.5-5.1) Chloride Level 100 mmol/L (98-107) 101 mmol/L (98-107) Carbon Dioxide Level 32 mmol/L (21-32) 32 mmol/L (21-32) Anion Gap 6 (6-14) 9 (6-14) Blood Urea Nitrogen 12 mg/dL (7-20) 15 mg/dL (7-20) Creatinine 0.7 mg/dL (0.6-1.0) 0.9 mg/dL (0.6-1.0) Estimated GFR (Cockcroft-Gault) 101.9 76.3 BUN/Creatinine Ratio 17 (6-20) Glucose Level 152 mg/dL (70-99) 141 mg/dL (70-99) Calcium Level 9.6 mg/dL (8.5-10.1) 9.3 mg/dL (8.5-10.1) Total Bilirubin 0.3 mg/dL (0.2-1.0) Aspartate Amino Transf (AST/SGOT) 21 U/L (15-37) Alanine Aminotransferase (ALT/SGPT) 28 U/L (14-59) Alkaline Phosphatase 93 U/L (46-116) Troponin I Quantitative < 0.017 ng/mL (0.000-0.055) < 0.017 ng/mL (0.000-0.055) 0.017 ng/mL (0.000-0.055) PY-Uuk-Q-Type Natriuretic Peptide 860 pg/mL (0-124) Total Protein 7.7 g/dL (6.4-8.2) Albumin 3.3 g/dL (3.4-5.0) Albumin/Globulin Ratio 0.8 (1.0-1.7) O2 Saturation 98 % (92-99) Arterial Blood pH 7.51 (7.35-7.45) Arterial Blood pCO2 at Patient Temp 38 mmHg (35-46) Arterial Blood pO2 at Patient Temp 135 mmHg (65-108) Arterial Blood HCO3 30 mmol/L (21-28) Arterial Blood Base Excess 6 mmol/L (-3-3) FiO2 36 Test 07/06/18 07:23 Glucose (Fingerstick) 101 mg/dL (70-99) Brief Hospital Course Ms. Laguna is a 63 old female with a history of CAD s/p CABG, CHF, hypertension, hyperlipidemia, DMII, and SS s/p PPM, who presents with chest pain and SOB since several days described as aching, worsening with mvt and reproducible on palpation. shortness of breath mostly upon exertion. patient did not feel well so came to ER Friday. denies LE edema, palpitations, takes all meds as prescribed. Patient admitted to cardiac flow and ACS ruled out. no events on tele. trops negative. cards consulted and recent cath 05/12 shows patent vessels. will continue with risk factor modification and medical management. continue all home meds as prescribed and follow up with cards as scheduled. Discharge Information Condition at Discharge: Improved Follow Up: Weeks Disposition/Orders: D/C to Home Scheduled Amlodipine Besylate (Amlodipine Besylate) 10 Mg Tablet, 10 MG PO DAILY for htn, (Reported) Entered as Reported by: KENNEY YANG on 05/16/182321 Last Action: Continued on 07/06/18 1010 by GABRIELLA VÁSQUEZ APRN Aspirin (Aspir 81) 81 Mg Tablet.dr, 1 TAB PO DAILY, #30 Ref 5 (Reported) Entered as Reported by: FIFI WALSH on 10/28/16 1058 Last Action: Continued on 07/06/18 1010 by GABRIELLA VÁSQUEZ APRN Atorvastatin Calcium (Atorvastatin Calcium) 20 Mg Tablet, 20 MG PO HS for FOR CHOLESTEROL, #30 Ref 0 (Reported) Entered as Reported by: FIFI WALSH on 10/28/16 1108 Last Action: Continued on 07/06/18 1010 by GABRIELLA VÁSQUEZ APRN Benzonatate (Tessalon Perle) 100 Mg Capsule, 1 CAP PO TID, #21 Prescribed by: MILLER ORTIZ MD on 06/21/18 1711 Last Action: Reviewed on 07/06/18129 by KSENIA SANDERSON Calcium Carbonate/Vitamin D3 (Calcium 500 + Vit D 200 Caplet) 1 Each Tablet, 1 EACH PO DAILY for supplement, (Reported) Entered as Reported by: KENNEY YANG on 05/16/182321 Last Action: Reviewed on 07/06/18129 by KSENIA SANDERSON Clonazepam (Clonazepam) 0.5 Mg Tablet, 0.5 MG PO TID for anti-anxiety, (Reported ) Entered as Reported by: KENNEY YANG on 05/16/182321 Last Action: Reviewed on 07/06/18129 by KSENIA SANDERSON Famotidine (Famotidine) 20 Mg Tablet, 20 MG PO BID for stomach acid, (Reported) Entered as Reported by: KENNEY YANG on 05/16/182321 Last Action: Reviewed on 07/06/18129 by KSENIA SANDERSON Ferrous Sulfate (Ferrous Sulfate) 325 Mg Tablet, 1 TAB PO DAILY, #30 Ref 3 ( Reported) Entered as Reported by: LOYDA CELAYA on 11/01/16 0014 Last Action: Reviewed on 07/06/18129 by KSENIA SANDERSON Fluoxetine Hcl (Fluoxetine Hcl) 20 Mg Capsule, 1 CAP PO DAILY for anti- depressent, #90 Ref 1 (Reported) Entered as Reported by: KENNEY YANG on 05/16/182321 Last Action: Reviewed on 07/06/18129 by KSENIA SANDERSON Furosemide (Furosemide) 80 Mg Tablet, 80 MG PO BID for heart, (Reported) Entered as Reported by: NAM MORTENSEN on 10/09/17 1408 Last Action: Continued on 07/06/181009 by GABRIELLA VÁSQUEZ APRN Glimepiride (Amaryl) 2 Mg Tablet, 2 MG PO DAILY for 30 Days, #30 Prescribed by: RADHA PIERRE MD on 07/04/17 1010 Last Action: Reviewed on 07/06/18129 by KSENIA SANDERSON Losartan Potassium (Losartan Potassium) 100 Mg Tablet, 100 MG PO DAILY for HYPERTENSION, (Reported) Entered as Reported by: CARMEN LAN on 03/13/18 1056 Last Action: Converted on 07/06/181009 by GABRIELLA VÁSQUEZ APRN Metoprolol Succinate (Toprol Xl) 50 Mg Tab.er.24h, 50 MG PO DAILY for htn MDD 1 , #30 Prescribed by: CATHIE KNIGHT on 05/19/18 0913 Last Action: Continued on 07/06/181009 by GABRIELLA VÁSQUEZ APRN Prednisone (Prednisone) 20 Mg Tablet, 40 MG PO DAILY for 3 Days, #6 Prescribed by: MILLER ORTIZ MD on 06/21/18 1711 Last Action: Reviewed on 07/06/18129 by KSENIA SANDERSON Warfarin Sodium (Warfarin Sodium) 5 Mg Tablet, 5 MG PO DAILY for blood thinner, #30 (Reported) Entered as Reported by: KSENIA SANDERSON on 07/06/18129 Last Taken: Unknown Dose on 07/03/18 Last Action: New Order on 07/06/18129 by KSENIA SANDERSON Zolpidem Tartrate (Zolpidem Tartrate) 5 Mg Tablet, 5 MG PO QHS for insomnia, Ref 0 (Reported) Entered as Reported by: KENNEY YANG on 05/16/182321 Last Action: Reviewed on 07/06/18129 by KSENIA SANDERSON Scheduled PRN Albuterol Sulfate (Albuterol Sulfate Conc Neb Soln) 2.5 Mg/0.5 Ml Vial.neb, 5 MG NEB PRN PRN for WHEEZING, Ref 0 (Reported) Entered as Reported by: ROMY PHELAN on 10/07/172035 Last Action: Reviewed on 07/06/18129 by KSENIA SANDERSON Albuterol Sulfate (Proair Hfa Inhaler) 8.5 Gm Hfa.aer.ad, 1 PUFF INH PRN Q6HRS PRN for SHORTNESS OF BREATH, #1 Ref 0 Prescribed by: MILLER ORTIZ MD on 06/21/181710 Last Action: Reviewed on 07/06/18129 by KSENIA SANDERSON Nitroglycerin (NITROGLYCERIN SubLingual) 0.4 Mg Tab.subl, 0.4 MG SL PRN Q5MIN PRN for CHEST PAIN, (Reported) Entered as Reported by: LOYDA CELAYA on 11/01/16 0013 Last Action: Reviewed on 07/06/18129 by KSENIA SANDERSON Oxycodone/Apap 10-325 (Percocet 10-325 Mg Tablet ) 1 Each Tablet, 2 TAB PO PRN Q4-6HRS PRN for PAIN MDD 1, #20 Ref 0 Prescribed by: CATHIE KNIGHT on 05/19/18 0913 Last Action: Reviewed on 07/06/18129 by MICHELLE RUVALCABA MD Jul 06, 2018 11:07
[2018-07-06] MEDS ORDERED: NITROGLYCERIN SUBLINGUAL 0.4 MG BOTTLE OF 25. SL PRN (11:30)
[2018-07-06] MEDS ORDERED: ALBUTEROL SULFATE 2.5 MG/3 ML NEBU. INH PRN (11:30)
[2018-07-06] MEDS ORDERED: ALBUTEROL SULFATE 5 MG NEB PRN (11:30)
[2018-07-06] MEDS: GLIMEPIRIDE 2 MG TABLET. PO SCH (12:26)
[2018-07-06] MEDS: predniSONE 20 MG TABLET PO SCH (12:26)
[2018-07-06] MEDS: oxyCODONE/APAP 10/325 1 TAB TABLET PO PRN ×3 (12:27→20:33)
[2018-07-06] MEDS: FUROSEMIDE 40 MG TABLET. PO SCH (12:27)
[2018-07-06] MEDS: amLODIPine BESYLATE 10 MG TABLET PO SCH (12:27)
[2018-07-06] MEDS: METOPROLOL SUCC 24HR ER 50 MG TAB.ER.24H. PO SCH (12:27)
[2018-07-06] MEDS: FERROUS SULFATE 325 MG TABLET. PO SCH (12:28)
[2018-07-06] MEDS: ASPIRIN ENTERIC COATED 81 MG TABLET.DR. PO SCH (12:28)
[2018-07-06] MEDS: FLUoxetine HCL 20 MG CAPSULE PO SCH (12:28)
[2018-07-06] MEDS: CALCIUM CARB/VIT D3 500/200 TABLET. PO SCH (12:29)
[2018-07-06] MEDS: FAMOTIDINE 20 MG TABLET. PO SCH ×2 (12:29→20:33)
[2018-07-06] MEDS: LOSARTAN POTASSIUM 50 MG TABLET. PO SCH (12:29)
[2018-07-06] MEDS ORDERED: BENZONATATE 100 MG CAPSULE. PO PRN (14:00)
[2018-07-06] MEDS: clonazePAM 0.5 MG TABLET PO SCH ×2 (14:38→20:33)
--- NOTE | 2018-07-06 15:00 | NUR ---
SS following for discharge planning. SS reviewed pt chart. Pt is from home and is currently requiring oxygen. No discharge needs noted at this time. Pt has been on services with [facility] in the past. SS will continue to follow for discharge planning.
[2018-07-06] MEDS: WARFARIN 5 MG TABLET. PO SCH (16:28)
[2018-07-06] MEDS: ATORVASTATIN CALCIUM 20 MG TABLET PO SCH (20:33)
[2018-07-06] MEDS: ZOLPIDEM 5 MG TABLET. PO SCH (20:33)
[2018-07-06] MEDS ORDERED: FUROSEMIDE 80 MG TABLET. PO SCH (21:00)
[2018-07-07] MEDS: oxyCODONE/APAP 10/325 1 TAB TABLET PO PRN ×5 (02:04→20:01)
[2018-07-07 02:18] VITALS: BP 177/77
[2018-07-07 07:00] VITALS: BP 160/69
[2018-07-07 10:39] VITALS: BP 163/69
[2018-07-07] MEDS: GLIMEPIRIDE 2 MG TABLET. PO SCH (10:42)
[2018-07-07] MEDS: CALCIUM CARB/VIT D3 500/200 TABLET. PO SCH (10:42)
[2018-07-07] MEDS: FERROUS SULFATE 325 MG TABLET. PO SCH (10:42)
[2018-07-07] MEDS: FUROSEMIDE 40 MG TABLET. PO SCH (10:42)
[2018-07-07] MEDS: predniSONE 20 MG TABLET PO SCH (10:42)
[2018-07-07] MEDS: FLUoxetine HCL 20 MG CAPSULE PO SCH (10:43)
[2018-07-07] MEDS: amLODIPine BESYLATE 10 MG TABLET PO SCH (10:43)
[2018-07-07] MEDS: ASPIRIN ENTERIC COATED 81 MG TABLET.DR. PO SCH (10:43)
[2018-07-07] MEDS: clonazePAM 0.5 MG TABLET PO SCH ×3 (10:44→20:01)
[2018-07-07] MEDS: LOSARTAN POTASSIUM 50 MG TABLET. PO SCH (10:44)
[2018-07-07] MEDS: METOPROLOL SUCC 24HR ER 50 MG TAB.ER.24H. PO SCH (10:44)
[2018-07-07] MEDS: FAMOTIDINE 20 MG TABLET. PO SCH ×2 (10:44→20:01)
--- NOTE | 2018-07-07 11:23 | PDOC ---
PROGRESS NOTES Chief Complaint Chief Complaint Assessment 1. Chest pain, atypical. AMI ruled out. Most probable MSK 2. Mild acute on chronic diastolic HF; LVEF 50-55%. improved with IV Lasix in ED. 3. CAD: past CABG. Recent cardiac cath 05/12 shows patent grafts 4. Hypertension 5. VIOLETTA/morbid obesity: CPAP 6. Severe pulmonary HTN 7. CKD; stable 8. DM2/HLP 9. SSS s/p PPM ([facility]) 10. anticoagulation with warfarin; INR 2.2. Plan no plans for intervention per cards continue home lasix and BP meds fu with cards as outpatient. dc today History of Present Illness History of Present Illness no complaints today. patient ready for dc today. Vitals Vitals Vital Signs Date Time Temp Pulse Resp B/P (MAP) Pulse Ox O2 Delivery O2 Flow Rate FiO2 07/07/18 10:44 60 163/69 07/07/18 10:43 20 07/07/18 07:00 98.1 98 Nasal Cannula 2.0 98.1 Physical Exam General: Alert, Oriented X3 Lungs: Clear, Crackles Extremities: No clubbing, No cyanosis, No edema Labs LABS Laboratory Tests Test 07/06/18 12:00 07/06/18 16:48 07/06/18 20:50 07/07/18 07:15 Glucose (Fingerstick) 147 mg/dL (70-99) 214 mg/dL (70-99) 338 mg/dL (70-99) 138 mg/dL (70-99) Comment Review of Relevant I have reviewed the following items nolan (where applicable) has been applied. Labs Laboratory Tests Test 07/05/18 20:56 07/05/18 21:56 07/06/18 01:23 07/06/18 04:45 White Blood Count 9.5 x10^3/uL (4.0-11.0) Red Blood Count 4.13 x10^6/uL (3.50-5.40) Hemoglobin 11.1 g/dL (12.0-15.5) Hematocrit 34.4 % (36.0-47.0) Mean Corpuscular Volume 83 fL (79-100) Mean Corpuscular Hemoglobin 27 pg (25-35) Mean Corpuscular Hemoglobin Concent 32 g/dL (31-37) Red Cell Distribution Width 17.1 % (11.5-14.5) Platelet Count 341 x10^3/uL (140-400) Neutrophils (%) (Auto) 80 % (31-73) Lymphocytes (%) (Auto) 13 % (24-48) Monocytes (%) (Auto) 7 % (0-9) Eosinophils (%) (Auto) 0 % (0-3) Basophils (%) (Auto) 0 % (0-3) Neutrophils # (Auto) 7.5 x10^3uL (1.8-7.7) Lymphocytes # (Auto) 1.3 x10^3/uL (1.0-4.8) Monocytes # (Auto) 0.6 x10^3/uL (0.0-1.1) Eosinophils # (Auto) 0.0 x10^3/uL (0.0-0.7) Basophils # (Auto) 0.0 x10^3/uL (0.0-0.2) Prothrombin Time 24.5 SEC (11.7-14.0) Prothromb Time International Ratio 2.2 (0.8-1.1) Sodium Level 138 mmol/L (136-145) 142 mmol/L (136-145) Potassium Level 3.9 mmol/L (3.5-5.1) 3.7 mmol/L (3.5-5.1) Chloride Level 100 mmol/L (98-107) 101 mmol/L (98-107) Carbon Dioxide Level 32 mmol/L (21-32) 32 mmol/L (21-32) Anion Gap 6 (6-14) 9 (6-14) Blood Urea Nitrogen 12 mg/dL (7-20) 15 mg/dL (7-20) Creatinine 0.7 mg/dL (0.6-1.0) 0.9 mg/dL (0.6-1.0) Estimated GFR (Cockcroft-Gault) 101.9 76.3 BUN/Creatinine Ratio 17 (6-20) Glucose Level 152 mg/dL (70-99) 141 mg/dL (70-99) Calcium Level 9.6 mg/dL (8.5-10.1) 9.3 mg/dL (8.5-10.1) Total Bilirubin 0.3 mg/dL (0.2-1.0) Aspartate Amino Transf (AST/SGOT) 21 U/L (15-37) Alanine Aminotransferase (ALT/SGPT) 28 U/L (14-59) Alkaline Phosphatase 93 U/L (46-116) Troponin I Quantitative < 0.017 ng/mL (0.000-0.055) < 0.017 ng/mL (0.000-0.055) 0.017 ng/mL (0.000-0.055) UD-Afs-R-Type Natriuretic Peptide 860 pg/mL (0-124) Total Protein 7.7 g/dL (6.4-8.2) Albumin 3.3 g/dL (3.4-5.0) Albumin/Globulin Ratio 0.8 (1.0-1.7) O2 Saturation 98 % (92-99) Arterial Blood pH 7.51 (7.35-7.45) Arterial Blood pCO2 at Patient Temp 38 mmHg (35-46) Arterial Blood pO2 at Patient Temp 135 mmHg (65-108) Arterial Blood HCO3 30 mmol/L (21-28) Arterial Blood Base Excess 6 mmol/L (-3-3) FiO2 36 Test 07/06/18 07:23 07/06/18 12:00 07/06/18 16:48 07/06/18 20:50 Glucose (Fingerstick) 101 mg/dL (70-99) 147 mg/dL (70-99) 214 mg/dL (70-99) 338 mg/dL (70-99) Test 07/07/18 07:15 Glucose (Fingerstick) 138 mg/dL (70-99) Laboratory Tests Test 07/06/18 12:00 07/06/18 16:48 07/06/18 20:50 07/07/18 07:15 Glucose (Fingerstick) 147 mg/dL (70-99) 214 mg/dL (70-99) 338 mg/dL (70-99) 138 mg/dL (70-99) Medications Current Medications Fentanyl Citrate (Fentanyl 2ml Vial) 25 mcg 1X ONCE IV Last administered on at 22:46; Start 07/05/18 at 23:00; Stop 07/05/18 at 23:01; Status DC Ondansetron HCl (Zofran) 4 mg 1X ONCE IV Last administered on 07/05/18at 22:45 ; Start 07/05/18 at 23:00; Stop 07/05/18 at 23:01; Status DC Furosemide (Lasix) 40 mg 1X ONCE IVP Last administered on 07/05/18at 22:45; Start 07/05/18 at 23:00; Stop 07/05/18 at 23:01; Status DC Ondansetron HCl (Zofran) 4 mg PRN Q8HRS PRN IV NAUSEA/VOMITING 1ST CHOICE; Start 07/05/18 at 22:45; Stop 07/07/18 at 00:37; Status DC Morphine Sulfate (Morphine Sulfate) 2 mg PRN Q2HR PRN IV SEVERE PAIN Last administered on 07/06/18at 07:57; Start 07/05/18 at 22:45; Stop 07/07/18 at 00:37 ; Status DC Furosemide (Lasix) 40 mg BID92 IVP ; Start 07/06/18 at 09:00; Stop 07/06/18 at 11:56; Status DC Nitroglycerin (Nitro-Bid Oint) 0.5 inch Q6HRS TP ; Start 07/06/18 at 00:00; Stop 07/06/18 at 18:14; Status DC Amlodipine Besylate (Norvasc) 10 mg DAILY PO Last administered on 07/07/18at 10: 43; Start 07/06/18 at 11:00 Aspirin (Ecotrin) 81 mg DAILY PO Last administered on 07/07/18at 10:43; Start at 11:00 Atorvastatin Calcium (Lipitor) 20 mg HS PO Last administered on 07/06/18at 20:33 ; Start 07/06/18 at 21:00 Furosemide (Lasix) 80 mg BID PO ; Start 07/06/18 at 21:00; Status UNV Metoprolol Succinate (Toprol Xl) 50 mg DAILY PO Last administered on 07/07/18at 10:44; Start 07/06/18 at 10:30 Losartan Potassium (Cozaar) 100 mg DAILY PO Last administered on 07/07/18at 10: 44; Start 07/06/18 at 10:30 Albuterol Sulfate (Ventolin Neb Soln) 1 mg PRN Q6HRS PRN INH SHORTNESS OF BREATH; Start 07/06/18 at 11:30 Calcium/Vitamin D (Oscal D 500mg/ 200uts) 1 tab DAILY PO Last administered on 10:42; Start 07/06/18 at 12:00 Clonazepam (KlonoPIN) 0.5 mg TID PO Last administered on 07/07/18 10:44; Start 07/06/18 at 14:00 Famotidine (Pepcid) 20 mg BID PO Last administered on 07/07/18 10:44; Start at 12:00 Ferrous Sulfate (Feosol) 325 mg DAILY PO Last administered on 07/07/18 10:42; Start 07/06/18 at 12:00 Fluoxetine HCl (PROzac) 20 mg DAILY PO Last administered on 07/07/18 10:43; Start 07/06/18 at 12:00 Glimepiride (Amaryl) 2 mg DAILY PO Last administered on 07/07/18 10:42; Start 07/06/18 at 12:00 Nitroglycerin (Nitrostat) 0.4 mg PRN Q5MIN PRN SL CHEST PAIN; Start 07/06/18 at 11:30 Oxycodone/ Acetaminophen (Percocet 10/325) 2 tab PRN Q4HRS PRN PO PAIN Last administered on 07/07/18 10:43; Start 07/06/18 at 11:30 Prednisone (Prednisone) 40 mg DAILY PO Last administered on 07/07/18 10:42; Start 07/06/18 at 12:00 Zolpidem Tartrate (Ambien) 5 mg QHS PO Last administered on 07/06/18 20:33; Start 07/06/18 at 21:00 Non-Formulary Medication (Albuterol Sulfate (Albuterol Sulfate Conc Neb Soln)) 5 mg PRN PRN NEB WHEEZING; Start 07/06/18 at 11:30; Status UNV Benzonatate (Tessalon Perle) 100 mg PRN TID PRN PO COUGH; Start 07/06/18 at 14: 00 Warfarin Sodium (Coumadin) 5 mg DAILY16 PO Last administered on 07/06/18 16:28 ; Start 07/06/18 at 16:00 Warfarin Sodium (Coumadin Per Physician) 1 each PRN DAILY PRN MC SEE COMMENTS; Start 07/06/18 at 11:45 Furosemide (Lasix) 40 mg DAILY PO Last administered on 07/07/18at 10:42; Start 07/06/18 at 12:30 Active Scripts Active Tessalon Perle (Benzonatate) 100 Mg Capsule 1 Cap PO TID Proair Hfa Inhaler (Albuterol Sulfate) 8.5 Gm Hfa.aer.ad 1 Puff INH PRN Q6HRS PRN Prednisone 20 Mg Tablet 40 Mg PO DAILY 3 Days Toprol Xl (Metoprolol Succinate) 50 Mg Tab.er.24h 50 Mg PO DAILY MDD 1 Percocet 10-325 Mg Tablet (Oxycodone/Acetaminophen) 1 Each Tablet 2 Tab PO PRN Q4-6HRS PRN MDD 1 Amaryl (Glimepiride) 2 Mg Tablet 2 Mg PO DAILY 30 Days Reported Warfarin Sodium 5 Mg Tablet 5 Mg PO DAILY Calcium 500 + Vit D 200 Caplet (Calcium Carbonate/Vitamin D3) 1 Each Tablet 1 Each PO DAILY Zolpidem Tartrate 5 Mg Tablet 5 Mg PO QHS Clonazepam 0.5 Mg Tablet 0.5 Mg PO TID Fluoxetine Hcl 20 Mg Capsule 1 Cap PO DAILY Amlodipine Besylate 10 Mg Tablet 10 Mg PO DAILY Famotidine 20 Mg Tablet 20 Mg PO BID Losartan Potassium 100 Mg Tablet 100 Mg PO DAILY Furosemide 80 Mg Tablet 80 Mg PO BID Albuterol Sulfate Conc Neb Soln (Albuterol Sulfate) 2.5 Mg/0.5 Ml Vial.neb 5 Mg NEB PRN PRN Ferrous Sulfate 325 Mg Tablet 1 Tab PO DAILY NITROGLYCERIN SubLingual (Nitroglycerin) 0.4 Mg Tab.subl 0.4 Mg SL PRN Q5MIN PRN Atorvastatin Calcium 20 Mg Tablet 20 Mg PO HS Aspir 81 (Aspirin) 81 Mg Tablet. 1 Tab PO DAILY Vitals/I & O Vital Sign - Last 24 Hours 07/06/18 07/06/18 07/06/18 07/06/18 12:27 12:27 12:27 12:29 Pulse 78 78 78 Resp 16 B/P (MAP) 144/54 144/54 144/54 O2 Delivery Nasal Cannula O2 Flow Rate 2.0 07/06/18 07/06/18 07/06/18 07/06/18 15:00 16:31 19:55 20:00 Temp 98.5 98.2 98.5 98.2 Pulse 60 60 Resp 20 16 20 B/P (MAP) 145/60 (88) 132/60 (84) Pulse Ox 98 98 O2 Delivery Nasal Cannula Nasal Cannula Nasal Cannula Nasal Cannula O2 Flow Rate 2.0 2.0 2.0 2.0 07/06/18 07/06/18 07/07/18 07/07/18 20:33 23:30 02:04 02:18 Temp 97.3 97.4 97.3 97.4 Pulse 59 81 Resp 18 18 18 20 B/P (MAP) 143/63 (89) 177/77 (110) Pulse Ox 98 97 98 96 O2 Delivery Nasal Cannula Nasal Cannula Nasal Cannula Nasal Cannula O2 Flow Rate 2.0 2.0 2.0 2.0 07/07/18 07/07/18 07/07/18 07/07/18 03:04 06:24 07:00 07:24 Temp 98.1 98.1 Pulse 60 Resp 18 18 20 B/P (MAP) 160/69 (99) Pulse Ox 96 96 98 O2 Delivery Nasal Cannula Nasal Cannula Nasal Cannula O2 Flow Rate 2.0 2.0 2.0 07/07/18 07/07/18 07/07/18 07/07/18 10:39 10:43 10:43 10:44 Pulse 60 60 60 Resp 20 B/P (MAP) 163/69 (100) 163/69 163/69 07/07/18 10:44 Pulse 60 B/P (MAP) 163/69 Intake and Output 07/06/18 07/06/18 07/07/18 14:59 22:59 06:59 Intake Total 300 ml 740 ml Output Total 1600 ml Balance 300 ml 740 ml -1600 ml MICHELLE THOMPSON MD Jul 07, 2018 11:23
[2018-07-07 15:00] VITALS: BP 147/67
[2018-07-07] MEDS: WARFARIN 5 MG TABLET. PO SCH (15:23)
--- NOTE | 2018-07-07 19:18 | NUR ---
Discharge Note: GRETCHEN BONILLA [address] [place] [address] Discharge instructions and discharge home medications reviewed with patient and a copy given. All questions have been answered and understanding verbalized. The following instructions and handouts were given: CHF Discontinued lines and drains: left hand IV Currently awaiting her granddaughter to pick her up.
[2018-07-07] MEDS: ATORVASTATIN CALCIUM 20 MG TABLET PO SCH (20:01)
[2018-07-07] MEDS: ZOLPIDEM 5 MG TABLET. PO SCH (20:05)
--- NOTE | 2018-07-07 20:11 | NUR ---
Called for cab ride. Talked with June with [employer]. [phone]. Patient requested to get all of her evening medications prior to being discharge. She requested cab ride to [address] [place] [address]. Booking cab number [phone]
--- NOTE | 2018-07-07 20:20 | NUR ---
Gissell CABAN delivered patient to outside cab ride to be discharged home. Pat had things packed ready to discharge.
== END 2018-07-07 20:20 | disposition home or self-care (01) | DRG 291 ==
LOC: ER 20:18 → 2 SOUTH 23:20
PROVIDERS: ADMIT Internal Medicine; ATTEND Internal Medicine
DX: I13.0 Hypertensive heart and chronic kidney disease with heart failure and stage 1 through stage 4 chronic kidney disease, or unspecified chronic kidney disease (principal); I50.33 Acute on chronic diastolic (congestive) heart failure; Z68.41 Body mass index [BMI] 40.0-44.9, adult; R07.89 Other chest pain; J44.9 Chronic obstructive pulmonary disease, unspecified; E11.22 Type 2 diabetes mellitus with diabetic chronic kidney disease; E66.01 Morbid (severe) obesity due to excess calories; E78.00 Pure hypercholesterolemia, unspecified; E78.5 Hyperlipidemia, unspecified; I27.20 Pulmonary hypertension, unspecified; K21.9 Gastro-esophageal reflux disease without esophagitis; N18.9 Chronic kidney disease, unspecified; Z83.3 Family history of diabetes mellitus; Z90.710 Acquired absence of both cervix and uterus; Z95.1 Presence of aortocoronary bypass graft; Z96.652 Presence of left artificial knee joint; Z99.81 Dependence on supplemental oxygen; E11.42 Type 2 diabetes mellitus with diabetic polyneuropathy; Z79.4 Long term (current) use of insulin; G89.29 Other chronic pain; Z90.49 Acquired absence of other specified parts of digestive tract; Z88.8 Allergy status to other drugs, medicaments and biological substances; M19.90 Unspecified osteoarthritis, unspecified site; I25.10 Atherosclerotic heart disease of native coronary artery without angina pectoris
CPT/HCPCS: 36415; 36600; 71045; 80048; 80053; 82805; 82962; 83880; 84484; 85025; 85610; 93005; 96374; 96375; J1940; J2270; J2405; J3010; J7512; 99285-25

== ENCOUNTER 2018-07-12 11:27 | Emergency (ER) | payer OTHER ==
[~2018-07-12] VITALS: Ht 162.6 cm; Wt 99.8 kg
[~2018-07-12 11:27] MED LIST changes: +WARF-31 PO
[2018-07-12] MEDS ORDERED: ACETAMINOPHEN 500 MG TABLET PO ONE (12:00)
--- NOTE | 2018-07-12 12:06 | PHYS DOC ---
Past Medical History Past Medical History: Angina, CAD, CHF, COPD, Diabetes-Type II, High Cholesterol, Hypertension, AL, Other Additional Past Medical Histor: O2 DEPENDENT 3 L PRN, chronic pain Past Surgical History: Cholecystectomy, Coronary Bypass Surgery, Hysterectomy, Knee Replacement, Pacemaker, Other Additional Past Surgical Histo: STENTS Alcohol Use: None Drug Use: None Adult General Chief Complaint Chief Complaint: chest pain and shortness of breath [facility] HPI Patient is a 63 year old female who is in by EMS because of shortness of breath and chest pain. Patient complaining of left upper chest pain since yesterday as a constant and sharp pain that getting worse with movement of her arm and radiated to her upper back. She rated her pain 9/10. Patient states she had 1 episode of shortness of breath this morning and had 2 episodes of vomiting. Patient denies dizziness, palpitation, fever and chills, abdominal pain, urinary symptoms. Patient states she had diagnosis of CHF with the same symptoms previously. Patient states she did not take any pain medication at home because she didn't have Tylenol. Patient states she takes about 10 cups of liquid every day because of taking water pills. Patient states she took 2 nitroglycerin this morning without change of her pain and EMS gave her 324 mg of aspirin. Review of Systems Review of Systems Constitutional: Denies fever or chills [] Eyes: Denies change in visual acuity, redness, or eye pain [] HENT: Denies nasal congestion or sore throat [] Respiratory: Denies cough, reports shortness of breath [] Cardiovascular: No additional information not addressed in HPI [] GI: Denies abdominal pain, nausea, vomiting, bloody stools or diarrhea [] : Denies dysuria or hematuria [] Musculoskeletal: Denies back pain or joint pain [] Integument: Denies rash or skin lesions [] Neurologic: Denies headache, focal weakness or sensory changes [] Endocrine: Denies polyuria or polydipsia [] All other systems were reviewed and found to be within normal limits, except as documented in this note. Current Medications Current Medications Current Medications Medications (Trade) Dose Ordered Sig/Susan Start Time Stop Time Status Last Admin Dose Admin Acetaminophen (Tylenol) 1,000 mg 1X ONCE 07/12/18 12:00 07/12/18 12:01 DC 07/12/18 12:05 1,000 MG Acetaminophen/ Hydrocodone Bitart (Lortab 5/325) 1 tab 1X ONCE 07/12/18 14:30 07/12/18 14:31 DC 07/12/18 14:20 1 TAB Cyclobenzaprine HCl (Flexeril) 10 mg 1X ONCE 07/12/18 13:30 07/12/18 13:31 DC 07/12/18 13:45 10 MG Ondansetron HCl (Zofran) 4 mg 1X ONCE 07/12/18 13:45 07/12/18 13:46 DC 07/12/18 13:58 4 MG Allergies Allergies Allergies Coded Allergies Type Severity Reaction Last Updated Verified ibuprofen Adverse Reaction Intermediate Nausea and Vomiting 12/02/17 Yes Physical Exam Physical Exam Constitutional: Well nourished, no acute distress, non-toxic appearance. [] HENT: Normocephalic, atraumatic, oropharynx moist. Eyes: PERRLA, EOMI, conjunctiva normal, no discharge. [] Neck: Normal range of motion, no tenderness, supple, no stridor. [] Cardiovascular:Heart rate regular rhythm, no murmur [] Lungs & Thorax: Bilateral breath sounds clear to auscultation, producing left chest wall pain. Abdomen: Bowel sounds normal, soft, no tenderness, no masses, no pulsatile masses. [] Skin: Warm, dry, no erythema, no rash. [] Back: No tenderness, no CVA tenderness. [] Extremities: No tenderness, no cyanosis, no clubbing, ROM intact, no edema. [] Neurologic: Alert and oriented X 3, normal motor function, normal sensory function, no focal deficits noted. [] Psychologic: Affect anxious, judgement normal, mood normal. [] Current Patient Data Vital Signs Vital Signs Date Time Temp Pulse Resp B/P (MAP) Pulse Ox O2 Delivery O2 Flow Rate FiO2 07/12/18 15:00 80 16 106/49 (68) 98 Nasal Cannula 2.0 07/12/18 11:34 98.1 98.1 Lab Values Laboratory Tests Test 07/12/18 11:40 07/12/18 12:30 White Blood Count 8.4 x10^3/uL (4.0-11.0) Red Blood Count 4.36 x10^6/uL (3.50-5.40) Hemoglobin 11.7 g/dL (12.0-15.5) L Hematocrit 36.6 % (36.0-47.0) Mean Corpuscular Volume 84 fL (79-100) Mean Corpuscular Hemoglobin 27 pg (25-35) Mean Corpuscular Hemoglobin Concent 32 g/dL (31-37) Red Cell Distribution Width 16.7 % (11.5-14.5) H Platelet Count 386 x10^3/uL (140-400) Neutrophils (%) (Auto) 79 % (31-73) H Lymphocytes (%) (Auto) 14 % (24-48) L Monocytes (%) (Auto) 6 % (0-9) Eosinophils (%) (Auto) 1 % (0-3) Basophils (%) (Auto) 1 % (0-3) Neutrophils # (Auto) 6.7 x10^3uL (1.8-7.7) Lymphocytes # (Auto) 1.2 x10^3/uL (1.0-4.8) Monocytes # (Auto) 0.5 x10^3/uL (0.0-1.1) Eosinophils # (Auto) 0.1 x10^3/uL (0.0-0.7) Basophils # (Auto) 0.0 x10^3/uL (0.0-0.2) Sodium Level 138 mmol/L (136-145) Potassium Level 4.2 mmol/L (3.5-5.1) Chloride Level 98 mmol/L (98-107) Carbon Dioxide Level 31 mmol/L (21-32) Anion Gap 9 (6-14) Blood Urea Nitrogen 10 mg/dL (7-20) Creatinine 0.8 mg/dL (0.6-1.0) Estimated GFR (Cockcroft-Gault) 87.4 BUN/Creatinine Ratio 13 (6-20) Glucose Level 152 mg/dL (70-99) H Calcium Level 9.7 mg/dL (8.5-10.1) Magnesium Level 2.2 mg/dL (1.8-2.4) Total Bilirubin 0.3 mg/dL (0.2-1.0) Aspartate Amino Transferase (AST) 22 U/L (15-37) Alanine Aminotransferase (ALT) 35 U/L (14-59) Alkaline Phosphatase 104 U/L (46-116) Creatine Kinase 44 U/L (26-192) Creatine Kinase MB (Mass) < 0.5 ng/mL (0.0-3.6) Creatine Kinase MB Relative Index % (0-4) Troponin I Quantitative < 0.017 ng/mL (0.000-0.055) [id number]-Type Natriuretic Peptide 780 pg/mL (0-124) H Total Protein 7.8 g/dL (6.4-8.2) Albumin 3.4 g/dL (3.4-5.0) Albumin/Globulin Ratio 0.8 (1.0-1.7) L Lipase 81 U/L (73-393) Laboratory Tests 07/12/18 11:40 Laboratory Tests 07/12/18 12:30 EKG EKG EKG interpreted by me. EKG at 10:30 showed normal sinus rhythm at rate of 82, right superior axis deviation, low voltage QRS, nonspecific intraventricular block, RVH with repolarization abnormalities, Q wave in anterolateral leads, ST elevation in leads D II unchanged from EKG dated 07/05/2018. Radiology/Procedures Radiology/Procedures [facility] [address] [place] [address] IMAGING REPORT Signed PATIENT: GRETCHEN BONILLA ACCOUNT: [id number] : 1955 LOCATION: ER AGE: 63 SEX: F EXAM STATUS: REG ER ORD. PHYSICIAN: JO-ANN BLOUNT MD REASON: chest pain and shortness of breath PROCEDURE: PORTABLE CHEST 1V PORTABLE CHEST 1V Clinical History: PT STATES SHORT OF BREATH AND LEFT SIDED CHEST PAIN. Technique: AP view of the chest was obtained at 07/12/2018 11:51 AM. Comparison: July 05, 2018. Findings: The heart is borderline enlarged. Median sternotomy wires left-sided pacemaker is again seen. The pulmonary vessels appear normal. The lungs are clear although lung bases are underpenetrated secondary to large body habitus. Impression: Borderline cardiomegaly. Stable appearance of the chest. Electronically signed by: Ashlyn Ignacio III, MD (07/12/2018 12:28 PM) [id number] DICTATED and SIGNED BY: ASHLYN IGNACIO III, MD DATE: 07/12/18 5008 Course & Med Decision Making Course & Med Decision Making Pertinent Labs and Imaging studies reviewed. (See chart for details) Evaluation of patient in ER showed 63-year-old female patient brought in by EMS because of chest pain and shortness of breath. Patient has frequent emergency room visits and hospitalization because of chest pain and shortness of breath. Patient had unremarkable physical exam and labs but requesting pain medication frequently. Patient had mild elevation of BNP and currently has history of CHF. Plan to discharge patient but patient refused discharge and wanted hospitalization.Dr Keen did not recommend admission at 1509. Dragon Disclaimer Dragon Disclaimer This electronic medical record was generated, in whole or in part, using a voice recognition dictation system. Departure Departure Impression: Primary Impression: Musculoskeletal chest pain Additional Impressions: Chronic congestive heart failure Nausea Disposition: HOME, SELF-CARE (at 1511) Condition: STABLE Referrals: JENSEN CUEVAS (PCP) Patient Instructions: Chest Wall Pain, Heart Failure, Nausea, Adult Additional Instructions: Do not drink more than 4 cups of liquid a day Follow-up with your primary care physician in 3-5 days Return to ER if not getting better Scripts [Percogesic] No Conflict Check 1 TAB PO QID PRN for PAIN, #10 Prov: JO-ANN BLOUNT MD 07/12/18 Ondansetron Hcl (ZOFRAN) 4 Mg Tablet 1 TAB PO PRN Q6-8HRS for nausea, #12 TAB Prov: JO-ANN BLOUNT MD 07/12/18 Problem Qualifiers JO-ANN BLOUNT MD Jul 12, 2018 12:06
[2018-07-12 12:11] LABS: BASO % 1 % (0-3); EOS # 0.1 x10^3/uL (0.0-0.7); EOS % 1 % (0-3); HEMATOCRIT 36.6 % (36.0-47.0); HEMOGLOBIN 11.7 g/dL (12.0-15.5); LYMPH # 1.2 x10^3/uL (1.0-4.8); LYMPH % 14 % (24-48); MEAN CORPUSCULAR HEMOGLOBIN 27 pg (25-35); MEAN CORPUSCULAR HGB CONC 32 g/dL (31-37); MEAN CORPUSCULAR VOLUME 84 fL (79-100); MONO # 0.5 x10^3/uL (0.0-1.1); MONO % 6 % (0-9); NEUT # 6.7 x10^3uL (1.8-7.7); NEUT % 79 % (31-73); PLATELET COUNT 386 x10^3/uL (140-400); RED BLOOD COUNT 4.36 x10^6/uL (3.50-5.40); RED CELL DISTRIBUTION WIDTH 16.7 % (11.5-14.5); WHITE BLOOD COUNT 8.4 x10^3/uL (4.0-11.0)
--- NOTE | 2018-07-12 12:25 | EKG ---
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
--- NOTE | 2018-07-12 12:31 | RAD ---
PORTABLE CHEST 1V Clinical History: PT STATES SHORT OF BREATH AND LEFT SIDED CHEST PAIN. Technique: AP view of the chest was obtained at 07/12/2018 11:51 AM. Comparison: July 05, 2018. Findings: The heart is borderline enlarged. Median sternotomy wires left-sided pacemaker is again seen. The pulmonary vessels appear normal. The lungs are clear although lung bases are underpenetrated secondary to large body habitus. Impression: Borderline cardiomegaly. Stable appearance of the chest. Electronically signed by: Rene Eubanks III, MD (07/12/2018 12:28 PM) [id number]
[2018-07-12 13:01] LABS: CALCIUM 9.7 mg/dL (8.5-10.1); CREATININE 0.8 mg/dL (0.6-1.0); GFR 87.4; POTASSIUM 4.2 mmol/L (3.5-5.1)
[2018-07-12 13:06] LABS: ALBUMIN 3.4 g/dL (3.4-5.0); ALBUMIN/GLOBULIN RATIO 0.8 (1.0-1.7); MAGNESIUM 2.2 mg/dL (1.8-2.4); TOTAL BILIRUBIN 0.3 mg/dL (0.2-1.0); TOTAL PROTEIN 7.8 g/dL (6.4-8.2)
[2018-07-12 13:21] LABS: CREATINE KINASE 44 U/L (26-192)
[2018-07-12] MEDS ORDERED: CYCLOBENZAPRINE 10 MG TABLET. PO ONE (13:30)
[2018-07-12] MEDS ORDERED: ONDANSETRON PF 4 MG/2 ML VIAL. IV ONE (13:45)
[2018-07-12] MEDS ORDERED: HYDROcodone/APAP 5/325MG 1 TAB TABLET PO ONE (14:30)
[2018-07-12 15:00] VITALS: BP 106/49
[2018-07-12] MEDS ORDERED: ONDA4TAB7 PO (15:14)
[2018-07-12] MEDS ORDERED: Percogesic PO (15:14)
== END 2018-07-12 15:32 | disposition home or self-care (01) ==
LOC: ER 11:27
DX: I11.0 Hypertensive heart disease with heart failure (principal); I50.9 Heart failure, unspecified; R07.89 Other chest pain; R11.2 Nausea with vomiting, unspecified; E11.9 Type 2 diabetes mellitus without complications; J44.9 Chronic obstructive pulmonary disease, unspecified; E78.00 Pure hypercholesterolemia, unspecified; I25.2 Old myocardial infarction; I25.10 Atherosclerotic heart disease of native coronary artery without angina pectoris; G89.29 Other chronic pain; Z95.1 Presence of aortocoronary bypass graft; Z95.5 Presence of coronary angioplasty implant and graft; Z95.0 Presence of cardiac pacemaker; Z88.8 Allergy status to other drugs, medicaments and biological substances
CPT/HCPCS: 36415; 71045; 80053; 82553; 83690; 83735; 83880; 84484; 85025; 93005; 96374; 99285; J2405

== ENCOUNTER 2018-07-14 17:13 | Observation (INO) | payer OTHER ==
[~2018-07-14] VITALS: Ht 162.6 cm; Wt 103.0 kg
[~2018-07-14 17:13] MED LIST changes: +ONDA4TAB7 PO; +Percogesic PO
--- NOTE | 2018-07-14 17:38 | PHYS DOC ---
Past Medical History Past Medical History: Angina, CAD, CHF, COPD, Diabetes-Type II, High Cholesterol, Hypertension, DC, Other Additional Past Medical Histor: O2 DEPENDENT 3 L PRN, chronic pain (ABNER MATHIAS APRN) Past Surgical History: Cholecystectomy, Coronary Bypass Surgery, Hysterectomy, Knee Replacement, Pacemaker, Other Additional Past Surgical Histo: STENTS (ABNER MATHIAS APRN) Alcohol Use: None Drug Use: None (ABNER MATHIAS APRN) Adult General Chief Complaint Chief Complaint: CHEST PAIN HPI HPI Patient is a 63 year old female presents from home for evaluation of ongoing chest pain, nausea, vomiting and shortness of breath since Friday. She reports was seen in this emergency room on Friday and sent home but symptoms have continued and the chest pain is starting to get worse. (ABNER MATHIAS APRN) Review of Systems Review of Systems Constitutional: Denies fever or chills [] Eyes: Denies change in visual acuity, redness, or eye pain [] HENT: Denies nasal congestion or sore throat [] Respiratory: Denies cough reports shortness of breath [] Cardiovascular: No additional information not addressed in HPI [] GI: Denies abdominal pain, reports nausea and vomiting, denies bloody stools or diarrhea [] : Denies dysuria or hematuria [] Musculoskeletal: Denies back pain or joint pain [] Integument: Denies rash or skin lesions [] Neurologic: Denies headache, focal weakness or sensory changes [] Endocrine: Denies polyuria or polydipsia [] All other systems were reviewed and found to be within normal limits, except as documented in this note. (ABNER MATHIAS APRN) Current Medications Current Medications Current Medications Medications (Trade) Dose Ordered Sig/Susan Start Time Stop Time Status Last Admin Dose Admin Morphine Sulfate (Morphine Sulfate) 4 mg 1X ONCE 07/14/18 18:00 07/14/18 18:01 DC 07/14/18 18:17 4 MG (YOHANA MACK MD) Allergies Allergies Allergies Coded Allergies Type Severity Reaction Last Updated Verified ibuprofen Adverse Reaction Intermediate Nausea and Vomiting 12/02/17 Yes (YOHANA MACK MD) Physical Exam Physical Exam Constitutional: Well developed, well nourished, no acute distress, non-toxic appearance. [] HENT: Normocephalic, atraumatic, bilateral external ears normal, oropharynx moist, no oral exudates, nose normal. [] Eyes: PERRLA, EOMI, conjunctiva normal, no discharge. [] Neck: Normal range of motion, no tenderness, supple, no stridor. [] Cardiovascular:Heart rate regular rhythm, no murmur [] Lungs & Thorax: Bilateral breath sounds clear to auscultation [] Abdomen: Bowel sounds normal, soft, no tenderness, no masses, no pulsatile masses. [] Skin: Warm, dry, no erythema, no rash. [] Back: No tenderness, no CVA tenderness. [] Extremities: No tenderness, no cyanosis, no clubbing, ROM intact, no edema. [] Neurologic: Alert and oriented X 3, normal motor function, normal sensory function, no focal deficits noted. [] Psychologic: Affect normal, judgement normal, mood normal. [] (ABNER MATHIAS APRN) Current Patient Data Vital Signs Vital Signs Date Time Temp Pulse Resp B/P (MAP) Pulse Ox O2 Delivery O2 Flow Rate FiO2 07/14/18 18:17 17 97 Room Air 07/14/18 17:30 62 137/64 (88) 07/14/18 17:15 98.0 98.0 (YOHANA MACK MD) Lab Values Laboratory Tests Test 07/14/18 17:40 White Blood Count 10.6 x10^3/uL (4.0-11.0) Red Blood Count 4.28 x10^6/uL (3.50-5.40) Hemoglobin 11.4 g/dL (12.0-15.5) L Hematocrit 35.8 % (36.0-47.0) L Mean Corpuscular Volume 84 fL (79-100) Mean Corpuscular Hemoglobin 27 pg (25-35) Mean Corpuscular Hemoglobin Concent 32 g/dL (31-37) Red Cell Distribution Width 16.8 % (11.5-14.5) H Platelet Count 423 x10^3/uL (140-400) H Neutrophils (%) (Auto) 72 % (31-73) Lymphocytes (%) (Auto) 18 % (24-48) L Monocytes (%) (Auto) 8 % (0-9) Eosinophils (%) (Auto) 1 % (0-3) Basophils (%) (Auto) 1 % (0-3) Neutrophils # (Auto) 7.6 x10^3uL (1.8-7.7) Lymphocytes # (Auto) 1.9 x10^3/uL (1.0-4.8) Monocytes # (Auto) 0.8 x10^3/uL (0.0-1.1) Eosinophils # (Auto) 0.1 x10^3/uL (0.0-0.7) Basophils # (Auto) 0.1 x10^3/uL (0.0-0.2) Prothrombin Time 28.4 SEC (11.7-14.0) H Prothrombin Time INR 2.7 (0.8-1.1) H Sodium Level 140 mmol/L (136-145) Potassium Level 3.9 mmol/L (3.5-5.1) Chloride Level 97 mmol/L (98-107) L Carbon Dioxide Level 33 mmol/L (21-32) H Anion Gap 10 (6-14) Blood Urea Nitrogen 16 mg/dL (7-20) Creatinine 1.2 mg/dL (0.6-1.0) H Estimated GFR (Cockcroft-Gault) 54.7 BUN/Creatinine Ratio 13 (6-20) Glucose Level 159 mg/dL (70-99) H Calcium Level 9.5 mg/dL (8.5-10.1) Magnesium Level 2.1 mg/dL (1.8-2.4) Total Bilirubin 0.2 mg/dL (0.2-1.0) Aspartate Amino Transferase (AST) 18 U/L (15-37) Alanine Aminotransferase (ALT) 28 U/L (14-59) Alkaline Phosphatase 102 U/L (46-116) Creatine Kinase 66 U/L (26-192) Creatine Kinase MB (Mass) 0.8 ng/mL (0.0-3.6) Creatine Kinase MB Relative Index % (0-4) Troponin I Quantitative < 0.017 ng/mL (0.000-0.055) SO-Vjh-W-Type Natriuretic Peptide 430 pg/mL (0-124) H Total Protein 8.3 g/dL (6.4-8.2) H Albumin 3.2 g/dL (3.4-5.0) L Albumin/Globulin Ratio 0.6 (1.0-1.7) L Lipase 102 U/L (73-393) Laboratory Tests 07/14/18 17:40 Laboratory Tests 07/14/18 17:40 (YOHANA MACK MD) Lab Values Laboratory Tests Test 07/14/18 17:40 White Blood Count 10.6 x10^3/uL (4.0-11.0) Red Blood Count 4.28 x10^6/uL (3.50-5.40) Hemoglobin 11.4 g/dL (12.0-15.5) L Hematocrit 35.8 % (36.0-47.0) L Mean Corpuscular Volume 84 fL (79-100) Mean Corpuscular Hemoglobin 27 pg (25-35) Mean Corpuscular Hemoglobin Concent 32 g/dL (31-37) Red Cell Distribution Width 16.8 % (11.5-14.5) H Platelet Count 423 x10^3/uL (140-400) H Neutrophils (%) (Auto) 72 % (31-73) Lymphocytes (%) (Auto) 18 % (24-48) L Monocytes (%) (Auto) 8 % (0-9) Eosinophils (%) (Auto) 1 % (0-3) Basophils (%) (Auto) 1 % (0-3) Neutrophils # (Auto) 7.6 x10^3uL (1.8-7.7) Lymphocytes # (Auto) 1.9 x10^3/uL (1.0-4.8) Monocytes # (Auto) 0.8 x10^3/uL (0.0-1.1) Eosinophils # (Auto) 0.1 x10^3/uL (0.0-0.7) Basophils # (Auto) 0.1 x10^3/uL (0.0-0.2) Prothrombin Time 28.4 SEC (11.7-14.0) H Prothrombin Time INR 2.7 (0.8-1.1) H Sodium Level 140 mmol/L (136-145) Potassium Level 3.9 mmol/L (3.5-5.1) Chloride Level 97 mmol/L (98-107) L Carbon Dioxide Level 33 mmol/L (21-32) H Anion Gap 10 (6-14) Blood Urea Nitrogen 16 mg/dL (7-20) Creatinine 1.2 mg/dL (0.6-1.0) H Estimated GFR (Cockcroft-Gault) 54.7 BUN/Creatinine Ratio 13 (6-20) Glucose Level 159 mg/dL (70-99) H Calcium Level 9.5 mg/dL (8.5-10.1) Magnesium Level 2.1 mg/dL (1.8-2.4) Total Bilirubin 0.2 mg/dL (0.2-1.0) Aspartate Amino Transferase (AST) 18 U/L (15-37) Alanine Aminotransferase (ALT) 28 U/L (14-59) Alkaline Phosphatase 102 U/L (46-116) Creatine Kinase 66 U/L (26-192) Creatine Kinase MB (Mass) 0.8 ng/mL (0.0-3.6) Creatine Kinase MB Relative Index % (0-4) Troponin I Quantitative < 0.017 ng/mL (0.000-0.055) MF-Xbh-J-Type Natriuretic Peptide 430 pg/mL (0-124) H Total Protein 8.3 g/dL (6.4-8.2) H Albumin 3.2 g/dL (3.4-5.0) L Albumin/Globulin Ratio 0.6 (1.0-1.7) L Lipase 102 U/L (73-393) Laboratory Tests 07/14/18 17:40 Laboratory Tests 07/14/18 17:40 (ABNER MATHIAS APRN) EKG EKG [] Interpretation Time: 1732 EKG read by emergency room physician heart rate 65, sinus rhythm, no STEMI (ABNER MATHIAS APRN) Radiology/Procedures Radiology/Procedures [] (ABNER MATHIAS APRN) Course & Med Decision Making Course & Med Decision Making Pertinent Labs and Imaging studies reviewed. (See chart for details) [70 cardiac enzymes negative, EKG normal sinus, no STEMI, decision to admit patient to trend labs, patient is accepted for admission by Dr. Macias.] (ABNER MATHIAS APRN) Course & Med Decision Making Staff Physician Addendum: I was working in the ER during the course of this patient's visit. I was available for consultation as needed, but I was not directly involved in the care of this patient. (YOHANA MACK MD) Dragon Disclaimer Dragon Disclaimer This electronic medical record was generated, in whole or in part, using a voice recognition dictation system. (ABNER MATHIAS APRN) Departure Departure Impression: Primary Impression: Chest pain Additional Impression: Nausea & vomiting Disposition: 09 ADMITTED INPATIENT Admitting Physician: Kelsie Macias (ABNER MATHIAS APRN) Condition: STABLE Referrals: JENSEN CUEVAS (PCP) Problem Qualifiers Primary Impression: Chest pain Chest pain type: other chest pain Qualified Codes: R07.89 - Other chest pain Additional Impression: Nausea & vomiting Vomiting type: unspecified Vomiting Intractability: non-intractable Qualified Codes: R11.2 - Nausea with vomiting, unspecified ABNER MATHIAS APRN Jul 14, 2018 17:38 YOHANA MACK MD Jul 15, 2018 05:42
[2018-07-14] MEDS ORDERED: MORPHINE SULFATE 4 MG/ML VIAL. IV ONE ×2 (18:00→20:00)
[2018-07-14 18:01] LABS: BASO # 0.1 x10^3/uL (0.0-0.2); BASO % 1 % (0-3); EOS # 0.1 x10^3/uL (0.0-0.7); EOS % 1 % (0-3); HEMATOCRIT 35.8 % (36.0-47.0); HEMOGLOBIN 11.4 g/dL (12.0-15.5); LYMPH # 1.9 x10^3/uL (1.0-4.8); LYMPH % 18 % (24-48); MEAN CORPUSCULAR HEMOGLOBIN 27 pg (25-35); MEAN CORPUSCULAR HGB CONC 32 g/dL (31-37); MEAN CORPUSCULAR VOLUME 84 fL (79-100); MONO # 0.8 x10^3/uL (0.0-1.1); MONO % 8 % (0-9); NEUT # 7.6 x10^3uL (1.8-7.7); NEUT % 72 % (31-73); PLATELET COUNT 423 x10^3/uL (140-400); RED BLOOD COUNT 4.28 x10^6/uL (3.50-5.40); RED CELL DISTRIBUTION WIDTH 16.8 % (11.5-14.5); WHITE BLOOD COUNT 10.6 x10^3/uL (4.0-11.0)
[2018-07-14 18:09] LABS: CALCIUM 9.5 mg/dL (8.5-10.1); CREATININE 1.2 mg/dL (0.6-1.0); GFR 54.7; POTASSIUM 3.9 mmol/L (3.5-5.1)
[2018-07-14 18:10] LABS: PROTHROMBIN TIME PATIENT 28.4 SEC (11.7-14.0)
[2018-07-14 18:16] LABS: ALBUMIN 3.2 g/dL (3.4-5.0); ALBUMIN/GLOBULIN RATIO 0.6 (1.0-1.7); MAGNESIUM 2.1 mg/dL (1.8-2.4); TOTAL BILIRUBIN 0.2 mg/dL (0.2-1.0); TOTAL PROTEIN 8.3 g/dL (6.4-8.2)
[2018-07-14 18:21] LABS: CREATINE KINASE 66 U/L (26-192)
[2018-07-14 20:27] VITALS: BP 143/53
[2018-07-14] MEDS ORDERED: PATCH REMOVAL. MC SCH (21:00)
[2018-07-14] MEDS ORDERED: CAPS60CR2 TP (21:11)
--- NOTE | 2018-07-14 21:12 | NUR ---
Pt arrived to unit per cart at 2024. Pt vs obtained and stable assessment completed poc explained call light placed in reach will resume care. Dr. tran here to see pt orders received to restart home medications.
[2018-07-14] MEDS ORDERED: NITROGLYCERIN SUBLINGUAL 0.4 MG BOTTLE OF 25. SL PRN (21:15)
[2018-07-14] MEDS ORDERED: PERCOGESIC PO PRN (21:15)
[2018-07-14] MEDS ORDERED: ALBUTEROL SULFATE 5 MG NEB PRN (21:15)
[2018-07-14] MEDS ORDERED: ALBUTEROL SULFATE 2.5 MG/3 ML NEBU. INH PRN (21:15)
[2018-07-14] MEDS ORDERED: CAPSAICIN 0.025% TOPICAL CREAM 60GM TUBE. TP PRN (21:15)
[2018-07-14] MEDS ORDERED: ONDANSETRON ODT 4 MG TAB.RAPDIS. PO PRN (21:15)
[2018-07-14] MEDS ORDERED: ZOLPIDEM 5 MG TABLET. PO SCH (21:30)
[2018-07-14] MEDS ORDERED: ATORVASTATIN CALCIUM 20 MG TABLET PO SCH (21:30)
--- NOTE | 2018-07-14 21:33 | PDOC1 ---
History and Physical Date of Admission Date of Admission DATE: 07/14/18 TIME: 21:30 Source Source: Chart review, Patient History of Present Illness History of Present Illness Ms. Laguna is a 63 year old female admti with chest pain. she was in the ER 2 days ago for same, and reports feeling worse, and ER is worried about sending her home mult prior admits, r/o acs, hx CAD, prior pacer placed by Dr. Crane She complans of pain as 8/10 chest pain, nausea, vomiting and shortness of breath since Friday. Past Medical History Cardiovascular: CAD, CHF, HTN, NE, Hyperlipidemia, Other Pulmonary: COPD CENTRAL NERVOUS SYSTEM: Periperal neuropathy GI: GERD Heme/Onc: No pertinent hx Hepatobiliary: Cholelithiasis Psych: No pertinent hx Musculoskeletal: Osteoarthritis Rheumatologic: No pertinent hx Infectious disease: No pertinent hx Renal/: Chronic renal insuff Endocrine: Diabetes Past Surgical History Past Surgical History: Pacemaker, Appendectomy, Cholecystectomy, Total knee replacement, Hysterectomy Family History Family History: Diabetes Family History: Parent Social History Smoke: No ALCOHOL: none Drugs: None Current Problem List Problem List Problems Medical Problems: (1) Nausea & vomiting Status: Acute Current Medications Current Medications Current Medications Morphine Sulfate (Morphine Sulfate) 4 mg 1X ONCE IV Last administered on 07/14/18at 18:17; Start 07/14/18 at 18:00; Stop 07/14/18 at 18:01; Status DC Morphine Sulfate (Morphine Sulfate) 4 mg 1X ONCE IV Last administered on 07/14/18at 19:57; Start 07/14/18 at 20:00; Stop 07/14/18 at 20:01; Status DC Albuterol Sulfate (Ventolin Neb Soln) 8.5 mg PRN Q6HRS PRN INH SHORTNESS OF BREATH; Start 07/14/18 at 21:15 Amlodipine Besylate (Norvasc) 10 mg DAILY PO ; Start 07/15/18 at 09:00 Aspirin (Ecotrin) 81 mg DAILYWBKFT PO ; Start 07/15/18 at 08:00 Atorvastatin Calcium (Lipitor) 20 mg HS PO ; Start 07/14/18 at 21:30 Calcium/Vitamin D (Oscal D 500mg/ 200uts) 1 tab DAILYWBKFT PO ; Start 07/15/18 at 08:00 Clonazepam (KlonoPIN) 0.5 mg TID PO ; Start 07/14/18 at 21:30 Famotidine (Pepcid) 20 mg BID PO ; Start 07/14/18 at 21:30 Ferrous Sulfate (Feosol) 325 mg DAILY PO ; Start 07/15/18 at 09:00 Fluoxetine HCl (PROzac) 20 mg DAILY PO ; Start 07/15/18 at 09:00 Furosemide (Lasix) 80 mg BID92 PO ; Start 07/15/18 at 09:00 Glimepiride (Amaryl) 2 mg DAILY PO ; Start 07/15/18 at 09:00 Metoprolol Succinate (Toprol Xl) 50 mg DAILY PO ; Start 07/15/18 at 09:00 Nitroglycerin (Nitrostat) 0.4 mg PRN Q5MIN PRN SL CHEST PAIN; Start 07/14/18 at 21:15 Oxycodone/ Acetaminophen (Percocet 10/325) 2 tab PRN Q4HRS PRN PO PAIN; Start 07/14/18 at 21:15 Prednisone (Prednisone) 40 mg DAILY PO ; Start 07/15/18 at 09:00 Zolpidem Tartrate (Ambien) 5 mg QHS PO ; Start 07/14/18 at 21:30 Non-Formulary Medication (Albuterol Sulfate (Albuterol Sulfate Conc Neb Soln)) 5 mg PRN PRN NEB WHEEZING; Start 07/14/18 at 21:15; Status UNV Benzonatate (Tessalon Perle) 100 mg TID PO ; Start 07/14/18 at 21:30 Non-Formulary Medication (Capsaicin ) 60 gm PRN TID TP ; Start 07/14/18 at 21:15; Status UNV Losartan Potassium (Cozaar) 100 mg DAILY PO ; Start 07/15/18 at 09:00 Ondansetron HCl (Zofran Odt) 4 mg PRN Q6HRS PRN PO NAUSEA/VOMITING; Start 07/14/18 at 21:15 Non-Formulary Medication (Warfarin Sodium ) 5 mg DAILY PO ; Start 07/15/18 at 09:00; Status UNV Non-Formulary Medication ([Percogesic] ) 1 tab QID PRN PO PAIN; Start 07/14/18 at 21:15; Status UNV Active Scripts Active [Percogesic] 1 Tab PO QID PRN Zofran (Ondansetron Hcl) 4 Mg Tablet 1 Tab PO PRN Q6-8HRS Tessalon Perle (Benzonatate) 100 Mg Capsule 1 Cap PO TID Proair Hfa Inhaler (Albuterol Sulfate) 8.5 Gm Hfa.aer.ad 1 Puff INH PRN Q6HRS PRN Prednisone 20 Mg Tablet 40 Mg PO DAILY 3 Days Toprol Xl (Metoprolol Succinate) 50 Mg Tab.er.24h 50 Mg PO DAILY MDD 1 Percocet 10-325 Mg Tablet (Oxycodone/Acetaminophen) 1 Each Tablet 2 Tab PO PRN Q4-6HRS PRN MDD 1 Amaryl (Glimepiride) 2 Mg Tablet 2 Mg PO DAILY 30 Days Reported Warfarin Sodium 5 Mg Tablet 5 Mg PO DAILY Calcium 500 + Vit D 200 Caplet (Calcium Carbonate/Vitamin D3) 1 Each Tablet 1 Each PO DAILY Zolpidem Tartrate 5 Mg Tablet 5 Mg PO QHS Clonazepam 0.5 Mg Tablet 0.5 Mg PO TID Fluoxetine Hcl 20 Mg Capsule 1 Cap PO DAILY Amlodipine Besylate 10 Mg Tablet 10 Mg PO DAILY Famotidine 20 Mg Tablet 20 Mg PO BID Losartan Potassium 100 Mg Tablet 100 Mg PO DAILY Furosemide 80 Mg Tablet 80 Mg PO BID Albuterol Sulfate Conc Neb Soln (Albuterol Sulfate) 2.5 Mg/0.5 Ml Vial.neb 5 Mg NEB PRN PRN Ferrous Sulfate 325 Mg Tablet 1 Tab PO DAILY NITROGLYCERIN SubLingual (Nitroglycerin) 0.4 Mg Tab.subl 0.4 Mg SL PRN Q5MIN PRN Atorvastatin Calcium 20 Mg Tablet 20 Mg PO HS Aspir 81 (Aspirin) 81 Mg Tablet.dr 1 Tab PO DAILY Capsaicin 60 Gm Cream..g. 60 Gm TP PRN TID Allergies Allergies: Coded Allergies: ibuprofen (Verified Adverse Reaction, Intermediate, Nausea and Vomiting, 12/02/17) ROS General: YES: Chills, Fatigue, Malaise PSYCHOLOGICAL ROS: YES: Sleep disturbances Eyes: No Blurry vision, No Decreased vision, No Double vision, No Dry eyes, No Excessive tearing, No Eye Pain, No Itchy Eyes, No Loss of vision, No Photophobia, No Scotomata, No Uses contacts, No Uses glasses, No Other HEENT: No: Heacaches, Visual Changes, Hearing change, Nasal congestion, Nasal discharge, Oral lesions, Sinus pain, Sore Throat, Epistaxis, Sneezing, Snoring, Tinnitus, Vertigo, Vocal changes, Other Respiratory: YES: Cough, Orthopnea, Shortness of breath, Tachypnea; No: Hemoptysis, Pleuritic Pain, SOB with excertion, Sputum Changes, Stridor, Wheezing, Other Cardiovascular: yes Chest Pain, yes Orthopnea Gastrointestinal: No Nausea, No Vomiting, No Abdominal Pain, No Diarrhea, No Constipation, No Melena, No Hematochezia, No Other Genitourinary: No Dysuria, No Frequency, No Incontinence, No Hematuria, No Retention, No Discharge, No Urgency, No Pain, No Flank Pain, No Other, No , No , No , No , No , No , No Musculoskeletal: Yes Joint Pain, Yes Joint Stiffness Neurological: No Behavorial Changes, No Bowel/Bladder ControlChng, No Confusion, No Dizziness, No Gait Disturbance, No Headaches, No Impaired Coord/b alance, No Memory Loss, No Numbness/Tingling, No Seizures, No Speech Problems, No Tremors, No Visual Changes, No Weakness, No Other Skin: Yes Dry Skin Physical Exam General: Alert, Oriented X3, Cooperative, mild distress HEENT: PERRLA, EOMI Lungs: Clear to auscultation, Normal air movement Heart: S1S2, RRR, no gallops, no murmurs Abdomen: Normal bowel sounds (obese), Soft Rectal Exam: not examined Extremities: No cyanosis, No edema, Normal pulses Skin: No rashes, No significant lesion Neuro: Normal speech, Normal tone, Cranial nerves 3-12 NL Psych/Mental Status: Mental status NL, Mood NL Vitals Vitals Vital Signs Date Time Temp Pulse Resp B/P (MAP) Pulse Ox O2 Delivery O2 Flow Rate FiO2 07/14/18 20:37 16 96 Room Air 07/14/18 20:27 97.8 61 143/53 (83) 97.8 Labs Labs Laboratory Tests Test 07/14/18 17:40 07/14/18 20:38 White Blood Count 10.6 x10^3/uL (4.0-11.0) Red Blood Count 4.28 x10^6/uL (3.50-5.40) Hemoglobin 11.4 g/dL (12.0-15.5) Hematocrit 35.8 % (36.0-47.0) Mean Corpuscular Volume 84 fL (79-100) Mean Corpuscular Hemoglobin 27 pg (25-35) Mean Corpuscular Hemoglobin Concent 32 g/dL (31-37) Red Cell Distribution Width 16.8 % (11.5-14.5) Platelet Count 423 x10^3/uL (140-400) Neutrophils (%) (Auto) 72 % (31-73) Lymphocytes (%) (Auto) 18 % (24-48) Monocytes (%) (Auto) 8 % (0-9) Eosinophils (%) (Auto) 1 % (0-3) Basophils (%) (Auto) 1 % (0-3) Neutrophils # (Auto) 7.6 x10^3uL (1.8-7.7) Lymphocytes # (Auto) 1.9 x10^3/uL (1.0-4.8) Monocytes # (Auto) 0.8 x10^3/uL (0.0-1.1) Eosinophils # (Auto) 0.1 x10^3/uL (0.0-0.7) Basophils # (Auto) 0.1 x10^3/uL (0.0-0.2) Prothrombin Time 28.4 SEC (11.7-14.0) Prothromb Time International Ratio 2.7 (0.8-1.1) Sodium Level 140 mmol/L (136-145) Potassium Level 3.9 mmol/L (3.5-5.1) Chloride Level 97 mmol/L (98-107) Carbon Dioxide Level 33 mmol/L (21-32) Anion Gap 10 (6-14) Blood Urea Nitrogen 16 mg/dL (7-20) Creatinine 1.2 mg/dL (0.6-1.0) Estimated GFR (Cockcroft-Gault) 54.7 BUN/Creatinine Ratio 13 (6-20) Glucose Level 159 mg/dL (70-99) Calcium Level 9.5 mg/dL (8.5-10.1) Magnesium Level 2.1 mg/dL (1.8-2.4) Total Bilirubin 0.2 mg/dL (0.2-1.0) Aspartate Amino Transf (AST/SGOT) 18 U/L (15-37) Alanine Aminotransferase (ALT/SGPT) 28 U/L (14-59) Alkaline Phosphatase 102 U/L (46-116) Creatine Kinase 66 U/L (26-192) Creatine Kinase MB (Mass) 0.8 ng/mL (0.0-3.6) Creatine Kinase MB Relative Index % (0-4) Troponin I Quantitative < 0.017 ng/mL (0.000-0.055) UE-Mxv-B-Type Natriuretic Peptide 430 pg/mL (0-124) Total Protein 8.3 g/dL (6.4-8.2) Albumin 3.2 g/dL (3.4-5.0) Albumin/Globulin Ratio 0.6 (1.0-1.7) Lipase 102 U/L (73-393) Glucose (Fingerstick) 101 mg/dL (70-99) Laboratory Tests Test 07/14/18 17:40 07/14/18 20:38 White Blood Count 10.6 x10^3/uL (4.0-11.0) Red Blood Count 4.28 x10^6/uL (3.50-5.40) Hemoglobin 11.4 g/dL (12.0-15.5) Hematocrit 35.8 % (36.0-47.0) Mean Corpuscular Volume 84 fL (79-100) Mean Corpuscular Hemoglobin 27 pg (25-35) Mean Corpuscular Hemoglobin Concent 32 g/dL (31-37) Red Cell Distribution Width 16.8 % (11.5-14.5) Platelet Count 423 x10^3/uL (140-400) Neutrophils (%) (Auto) 72 % (31-73) Lymphocytes (%) (Auto) 18 % (24-48) Monocytes (%) (Auto) 8 % (0-9) Eosinophils (%) (Auto) 1 % (0-3) Basophils (%) (Auto) 1 % (0-3) Neutrophils # (Auto) 7.6 x10^3uL (1.8-7.7) Lymphocytes # (Auto) 1.9 x10^3/uL (1.0-4.8) Monocytes # (Auto) 0.8 x10^3/uL (0.0-1.1) Eosinophils # (Auto) 0.1 x10^3/uL (0.0-0.7) Basophils # (Auto) 0.1 x10^3/uL (0.0-0.2) Prothrombin Time 28.4 SEC (11.7-14.0) Prothromb Time International Ratio 2.7 (0.8-1.1) Sodium Level 140 mmol/L (136-145) Potassium Level 3.9 mmol/L (3.5-5.1) Chloride Level 97 mmol/L (98-107) Carbon Dioxide Level 33 mmol/L (21-32) Anion Gap 10 (6-14) Blood Urea Nitrogen 16 mg/dL (7-20) Creatinine 1.2 mg/dL (0.6-1.0) Estimated GFR (Cockcroft-Gault) 54.7 BUN/Creatinine Ratio 13 (6-20) Glucose Level 159 mg/dL (70-99) Calcium Level 9.5 mg/dL (8.5-10.1) Magnesium Level 2.1 mg/dL (1.8-2.4) Total Bilirubin 0.2 mg/dL (0.2-1.0) Aspartate Amino Transf (AST/SGOT) 18 U/L (15-37) Alanine Aminotransferase (ALT/SGPT) 28 U/L (14-59) Alkaline Phosphatase 102 U/L (46-116) Creatine Kinase 66 U/L (26-192) Creatine Kinase MB (Mass) 0.8 ng/mL (0.0-3.6) Creatine Kinase MB Relative Index % (0-4) Troponin I Quantitative < 0.017 ng/mL (0.000-0.055) VQ-Kmx-H-Type Natriuretic Peptide 430 pg/mL (0-124) Total Protein 8.3 g/dL (6.4-8.2) Albumin 3.2 g/dL (3.4-5.0) Albumin/Globulin Ratio 0.6 (1.0-1.7) Lipase 102 U/L (73-393) Glucose (Fingerstick) 101 mg/dL (70-99) VTE Prophylaxis Ordered VTE Prophylaxis Devices: No VTE Pharmacological Prophylaxi: Yes Assessment/Plan Assessment/Plan chest pain, acute on chronic angina chf, chronic systolic obesity, BMI 40 LÓPEZ BARRIOS MD Jul 14, 2018 21:33
[2018-07-14] MEDS: FAMOTIDINE 20 MG TABLET. PO SCH (22:02)
[2018-07-14] MEDS: BENZONATATE 100 MG CAPSULE. PO SCH (22:03)
[2018-07-14] MEDS: clonazePAM 0.5 MG TABLET PO SCH (22:03)
[2018-07-14] MEDS: LIDOCAINE (700MG/PATCH) PATCH. TD SCH (22:03)
[2018-07-14] MEDS: MORPHINE SULFATE 10 MG/ML VIAL. IV PRN (22:10)
[2018-07-14 23:00] VITALS: BP 124/58
[2018-07-15 02:46] VITALS: BP 101/49
[2018-07-15] MEDS: oxyCODONE/APAP 10/325 1 TAB TABLET PO PRN ×4 (02:50→17:45)
[2018-07-15 05:53] LABS: BASO # 0.1 x10^3/uL (0.0-0.2); BASO % 1 % (0-3); EOS # 0.1 x10^3/uL (0.0-0.7); EOS % 1 % (0-3); HEMATOCRIT 34.7 % (36.0-47.0); HEMOGLOBIN 11.1 g/dL (12.0-15.5); LYMPH # 1.9 x10^3/uL (1.0-4.8); LYMPH % 21 % (24-48); MEAN CORPUSCULAR HEMOGLOBIN 27 pg (25-35); MEAN CORPUSCULAR HGB CONC 32 g/dL (31-37); MEAN CORPUSCULAR VOLUME 84 fL (79-100); MONO # 0.8 x10^3/uL (0.0-1.1); MONO % 9 % (0-9); NEUT # 6.6 x10^3uL (1.8-7.7); NEUT % 69 % (31-73); PLATELET COUNT 391 x10^3/uL (140-400); RED BLOOD COUNT 4.11 x10^6/uL (3.50-5.40); RED CELL DISTRIBUTION WIDTH 16.9 % (11.5-14.5); WHITE BLOOD COUNT 9.5 x10^3/uL (4.0-11.0)
[2018-07-15 06:10] LABS: PROTHROMBIN TIME PATIENT 30.8 SEC (11.7-14.0)
[2018-07-15] MEDS: MORPHINE SULFATE 10 MG/ML VIAL. IV PRN (06:21)
[2018-07-15 07:00] VITALS: BP 104/62
--- NOTE | 2018-07-15 07:12 | EKG ---
[facility] [address] [place] [address] Test Date: 2018-07-14 Test Time: 17:32:46 Pat Name: GRETCHEN BONILLA Department: Room: 262 1 Gender: F Credit Officer: : 1955 Requested By: ABNER MATHIAS Order Number: [id number] Reading MD: Rafal Fernandez Measurements Intervals [place] Rate: 65 P: -90 MN: 170 QRS: -149 QRSD: 148 T: 102 QT: 468 QTc: 488 Interpretive Statements SINUS RHYTHM NON SPECIFIC INTRAVENTRICULAR BLOCK RVH WITH REPOLARIZATION ABNORMALITY NONSPECIFIC ST-T WAVE CHANGES. ABNORMAL ECG Electronically Signed On 07-20-2018 11:36:28 CDT by Rafal Fernandez
--- NOTE | 2018-07-15 07:56 | RAD ---
Examination: PORTABLE CHEST 1V History: ER PATIENT. ATRAUMATIC LEFT SIDE CHEST PAIN WHERE PACEMAKER SITS. Hx HTN, DIABETES. PRIOR XRAY. Comparison/Correlation: 07/12/2018 portable chest x-ray exam Findings: Portable upright frontal view chest was obtained. Dual-lead left-sided pacemaker is present. Sternal wires are present. No pneumothorax. No definite infiltrate although evaluation of the retrocardiac region may be somewhat limited due to body habitus and borderline heart size. No definite effusion. No acute bony process. Impression: No active disease. Electronically signed by: Amador Corbett MD (07/15/2018 7:53 AM) [facility]
[2018-07-15] MEDS ORDERED: ASPIRIN ENTERIC COATED 81 MG TABLET.DR. PO SCH (08:00)
[2018-07-15] MEDS ORDERED: CALCIUM CARB/VIT D3 500/200 TABLET. PO SCH (08:00)
[2018-07-15] MEDS: FUROSEMIDE 80 MG TABLET. PO SCH ×2 (08:58→13:31)
[2018-07-15] MEDS ORDERED: FLUoxetine HCL 20 MG CAPSULE PO SCH (09:00)
[2018-07-15] MEDS ORDERED: predniSONE 20 MG TABLET PO SCH (09:00)
[2018-07-15] MEDS ORDERED: amLODIPine BESYLATE 10 MG TABLET PO SCH (09:00)
[2018-07-15] MEDS ORDERED: METOPROLOL SUCC 24HR ER 50 MG TAB.ER.24H. PO SCH (09:00)
[2018-07-15] MEDS ORDERED: FERROUS SULFATE 325 MG TABLET. PO SCH (09:00)
[2018-07-15] MEDS ORDERED: GLIMEPIRIDE 2 MG TABLET. PO SCH (09:00)
[2018-07-15] MEDS: LIDOCAINE (700MG/PATCH) PATCH. TD SCH (09:00)
[2018-07-15] MEDS ORDERED: LOSARTAN POTASSIUM 50 MG TABLET. PO SCH (09:00)
[2018-07-15] MEDS: clonazePAM 0.5 MG TABLET PO SCH ×2 (09:03→13:31)
[2018-07-15] MEDS: FAMOTIDINE 20 MG TABLET. PO SCH (09:04)
[2018-07-15] MEDS: BENZONATATE 100 MG CAPSULE. PO SCH ×2 (09:08→13:31)
[2018-07-15 11:00] VITALS: BP 125/57
--- NOTE | 2018-07-15 11:06 | PDOC3 ---
Discharge Summary Visit Information Date of Admission: Jul 14, 2018 Date of Discharge: Jul 15, 2018 Admitting Diagnosis Comment: costochondritis Narcotic dependence Obesity BMI 39 Chest pain ACS has been ruled out, status post EGD recent past, status post physiatry consult Final Diagnosis Problems Medical Problems: (1) Nausea & vomiting Status: Acute Brief Hospital Course Allergies Allergies Coded Allergies Type Severity Reaction Last Updated Verified ibuprofen Adverse Reaction Intermediate Nausea and Vomiting 12/02/17 Yes Vital Signs Vital Signs Date Time Temp Pulse Resp B/P (MAP) Pulse Ox O2 Delivery O2 Flow Rate FiO2 07/15/18 10:33 96 Room Air 07/15/18 10:02 2.0 07/15/18 09:08 75 165/72 07/15/18 07:00 98.1 18 98.1 Lab Results Laboratory Tests Test 07/14/18 17:40 07/14/18 20:38 07/15/18 05:11 07/15/18 07:23 White Blood Count 10.6 x10^3/uL (4.0-11.0) 9.5 x10^3/uL (4.0-11.0) Red Blood Count 4.28 x10^6/uL (3.50-5.40) 4.11 x10^6/uL (3.50-5.40) Hemoglobin 11.4 g/dL (12.0-15.5) 11.1 g/dL (12.0-15.5) Hematocrit 35.8 % (36.0-47.0) 34.7 % (36.0-47.0) Mean Corpuscular Volume 84 fL (79-100) 84 fL (79-100) Mean Corpuscular Hemoglobin 27 pg (25-35) 27 pg (25-35) Mean Corpuscular Hemoglobin Concent 32 g/dL (31-37) 32 g/dL (31-37) Red Cell Distribution Width 16.8 % (11.5-14.5) 16.9 % (11.5-14.5) Platelet Count 423 x10^3/uL (140-400) 391 x10^3/uL (140-400) Neutrophils (%) (Auto) 72 % (31-73) 69 % (31-73) Lymphocytes (%) (Auto) 18 % (24-48) 21 % (24-48) Monocytes (%) (Auto) 8 % (0-9) 9 % (0-9) Eosinophils (%) (Auto) 1 % (0-3) 1 % (0-3) Basophils (%) (Auto) 1 % (0-3) 1 % (0-3) Neutrophils # (Auto) 7.6 x10^3uL (1.8-7.7) 6.6 x10^3uL (1.8-7.7) Lymphocytes # (Auto) 1.9 x10^3/uL (1.0-4.8) 1.9 x10^3/uL (1.0-4.8) Monocytes # (Auto) 0.8 x10^3/uL (0.0-1.1) 0.8 x10^3/uL (0.0-1.1) Eosinophils # (Auto) 0.1 x10^3/uL (0.0-0.7) 0.1 x10^3/uL (0.0-0.7) Basophils # (Auto) 0.1 x10^3/uL (0.0-0.2) 0.1 x10^3/uL (0.0-0.2) Prothrombin Time 28.4 SEC (11.7-14.0) 30.8 SEC (11.7-14.0) Prothromb Time International Ratio 2.7 (0.8-1.1) 3.0 (0.8-1.1) Sodium Level 140 mmol/L (136-145) Potassium Level 3.9 mmol/L (3.5-5.1) Chloride Level 97 mmol/L (98-107) Carbon Dioxide Level 33 mmol/L (21-32) Anion Gap 10 (6-14) Blood Urea Nitrogen 16 mg/dL (7-20) Creatinine 1.2 mg/dL (0.6-1.0) Estimated GFR (Cockcroft-Gault) 54.7 BUN/Creatinine Ratio 13 (6-20) Glucose Level 159 mg/dL (70-99) Calcium Level 9.5 mg/dL (8.5-10.1) Magnesium Level 2.1 mg/dL (1.8-2.4) Total Bilirubin 0.2 mg/dL (0.2-1.0) Aspartate Amino Transf (AST/SGOT) 18 U/L (15-37) Alanine Aminotransferase (ALT/SGPT) 28 U/L (14-59) Alkaline Phosphatase 102 U/L (46-116) Creatine Kinase 66 U/L (26-192) Creatine Kinase MB (Mass) 0.8 ng/mL (0.0-3.6) Creatine Kinase MB Relative Index % (0-4) Troponin I Quantitative < 0.017 ng/mL (0.000-0.055) LR-Fwg-Z-Type Natriuretic Peptide 430 pg/mL (0-124) Total Protein 8.3 g/dL (6.4-8.2) Albumin 3.2 g/dL (3.4-5.0) Albumin/Globulin Ratio 0.6 (1.0-1.7) Lipase 102 U/L (73-393) Glucose (Fingerstick) 101 mg/dL (70-99) 106 mg/dL (70-99) Laboratory Tests Test 07/14/18 17:40 07/14/18 20:38 07/15/18 05:11 07/15/18 07:23 White Blood Count 10.6 x10^3/uL (4.0-11.0) 9.5 x10^3/uL (4.0-11.0) Red Blood Count 4.28 x10^6/uL (3.50-5.40) 4.11 x10^6/uL (3.50-5.40) Hemoglobin 11.4 g/dL (12.0-15.5) 11.1 g/dL (12.0-15.5) Hematocrit 35.8 % (36.0-47.0) 34.7 % (36.0-47.0) Mean Corpuscular Volume 84 fL (79-100) 84 fL (79-100) Mean Corpuscular Hemoglobin 27 pg (25-35) 27 pg (25-35) Mean Corpuscular Hemoglobin Concent 32 g/dL (31-37) 32 g/dL (31-37) Red Cell Distribution Width 16.8 % (11.5-14.5) 16.9 % (11.5-14.5) Platelet Count 423 x10^3/uL (140-400) 391 x10^3/uL (140-400) Neutrophils (%) (Auto) 72 % (31-73) 69 % (31-73) Lymphocytes (%) (Auto) 18 % (24-48) 21 % (24-48) Monocytes (%) (Auto) 8 % (0-9) 9 % (0-9) Eosinophils (%) (Auto) 1 % (0-3) 1 % (0-3) Basophils (%) (Auto) 1 % (0-3) 1 % (0-3) Neutrophils # (Auto) 7.6 x10^3uL (1.8-7.7) 6.6 x10^3uL (1.8-7.7) Lymphocytes # (Auto) 1.9 x10^3/uL (1.0-4.8) 1.9 x10^3/uL (1.0-4.8) Monocytes # (Auto) 0.8 x10^3/uL (0.0-1.1) 0.8 x10^3/uL (0.0-1.1) Eosinophils # (Auto) 0.1 x10^3/uL (0.0-0.7) 0.1 x10^3/uL (0.0-0.7) Basophils # (Auto) 0.1 x10^3/uL (0.0-0.2) 0.1 x10^3/uL (0.0-0.2) Prothrombin Time 28.4 SEC (11.7-14.0) 30.8 SEC (11.7-14.0) Prothromb Time International Ratio 2.7 (0.8-1.1) 3.0 (0.8-1.1) Sodium Level 140 mmol/L (136-145) Potassium Level 3.9 mmol/L (3.5-5.1) Chloride Level 97 mmol/L (98-107) Carbon Dioxide Level 33 mmol/L (21-32) Anion Gap 10 (6-14) Blood Urea Nitrogen 16 mg/dL (7-20) Creatinine 1.2 mg/dL (0.6-1.0) Estimated GFR (Cockcroft-Gault) 54.7 BUN/Creatinine Ratio 13 (6-20) Glucose Level 159 mg/dL (70-99) Calcium Level 9.5 mg/dL (8.5-10.1) Magnesium Level 2.1 mg/dL (1.8-2.4) Total Bilirubin 0.2 mg/dL (0.2-1.0) Aspartate Amino Transf (AST/SGOT) 18 U/L (15-37) Alanine Aminotransferase (ALT/SGPT) 28 U/L (14-59) Alkaline Phosphatase 102 U/L (46-116) Creatine Kinase 66 U/L (26-192) Creatine Kinase MB (Mass) 0.8 ng/mL (0.0-3.6) Creatine Kinase MB Relative Index % (0-4) Troponin I Quantitative < 0.017 ng/mL (0.000-0.055) TG-Smj-J-Type Natriuretic Peptide 430 pg/mL (0-124) Total Protein 8.3 g/dL (6.4-8.2) Albumin 3.2 g/dL (3.4-5.0) Albumin/Globulin Ratio 0.6 (1.0-1.7) Lipase 102 U/L (73-393) Glucose (Fingerstick) 101 mg/dL (70-99) 106 mg/dL (70-99) Brief Hospital Course Ms. Laguna is a 63 old [place] female, admitted again for chest pain left-sided. EKG chest x-ray reassuring. It is costochondritis very reproducible by palpation. Consult cardiology, they have no further tests to offer as she has had everything including a left heart catheterization recently. Also had an EGD done by GI for the same with really unimpressive results. I have also consulted physiatry during her past admissions for MSK complaints. Home today. She initially bargained for one more night with me about it. Has gotten 10 mg of morphine twice and is seemingly wanting more. She's not interested in home Percocet refills Consult: Cards Procedures none OBS Discharge Information Condition at Discharge: Improved, Stable Follow Up: Weeks (pcp as scheduled) Disposition/Orders: D/C to Home Scheduled Amlodipine Besylate (Amlodipine Besylate) 10 Mg Tablet, 10 MG PO DAILY for htn, (Reported) Entered as Reported by: KENNEY YANG on 05/16/182321 Last Action: Continued on 07/14/182116 by Tiffany Dodson Aspirin (Aspir 81) 81 Mg Tablet., 1 TAB PO DAILY, #30 Ref 5 (Reported) Entered as Reported by: FIFI WALSH on 10/28/16 1058 Last Action: Continued on 07/14/182116 by Tiffany Dodson Atorvastatin Calcium (Atorvastatin Calcium) 20 Mg Tablet, 20 MG PO HS for FOR CHOLESTEROL, #30 Ref 0 (Reported) Entered as Reported by: FIFI WALSH on 10/28/16 1108 Last Action: Continued on 07/14/182116 by Tiffany Dodson Benzonatate (Tessalon Perle) 100 Mg Capsule, 1 CAP PO TID, #21 Prescribed by: MILLER ORTIZ MD on 06/21/18 171 Last Action: Converted on 07/14/182116 by Tiffany Dodson Calcium Carbonate/Vitamin D3 (Calcium 500 + Vit D 200 Caplet) 1 Each Tablet, 1 EACH PO DAILY for supplement, (Reported) Entered as Reported by: KENNEY YANG on 05/16/182321 Last Action: Continued on 07/14/182116 by Tiffany Dodson Capsaicin (Capsaicin) 60 Gm Cream..g., 60 GM TP PRN TID for , (Reported) Entered as Reported by: Tiffany Dodson on 07/14/182110 Last Action: Converted on 07/14/182116 by Tiffany Dodson Clonazepam (Clonazepam) 0.5 Mg Tablet, 0.5 MG PO TID for anti-anxiety, (Reported) Entered as Reported by: KENNEY YANG on 05/16/182321 Last Action: Continued on 07/14/182116 by Tiffany Dodson Famotidine (Famotidine) 20 Mg Tablet, 20 MG PO BID for stomach acid, (Reported) Entered as Reported by: KENNEY YANG on 05/16/182321 Last Action: Continued on 07/14/182116 by Tiffany Dodson Ferrous Sulfate (Ferrous Sulfate) 325 Mg Tablet, 1 TAB PO DAILY, #30 Ref 3 (Reported) Entered as Reported by: LOYDA CELAYA on 11/01/16 0014 Last Action: Continued on 07/14/182116 by Tiffany Dodson Fluoxetine Hcl (Fluoxetine Hcl) 20 Mg Capsule, 1 CAP PO DAILY for anti- depressent, #90 Ref 1 (Reported) Entered as Reported by: KENNEY YANG on 05/16/182321 Last Action: Continued on 07/14/182116 by Tiffany Dodson Furosemide (Furosemide) 80 Mg Tablet, 80 MG PO BID for heart, (Reported) Entered as Reported by: NAM MORTENSEN on 10/09/17 1408 Last Action: Continued on 07/14/182116 by Tiffany Dodson Glimepiride (Amaryl) 2 Mg Tablet, 2 MG PO DAILY for 30 Days, #30 Prescribed by: RADHA PIERRE MD on 07/04/17 1010 Last Action: Continued on 07/14/182116 by Tiffany Dodson Losartan Potassium (Losartan Potassium) 100 Mg Tablet, 100 MG PO DAILY for HYPERTENSION, (Reported) Entered as Reported by: CARMEN LAN on 03/13/18 1056 Last Action: Converted on 07/14/182116 by Tiffany Dodson Metoprolol Succinate (Toprol Xl) 50 Mg Tab.er.24h, 50 MG PO DAILY for htn MDD 1, #30 Prescribed by: CATHIE KNIGHT on 05/19/18 0913 Last Action: Continued on 07/14/182116 by Tiffany Dodson Ondansetron Hcl (Zofran) 4 Mg Tablet, 1 TAB PO PRN Q6-8HRS for nausea, #12 Prescribed by: JO-ANN BLOUNT MD on 07/12/18 1514 Last Action: Converted on 07/14/182116 by Tiffany Dodson Prednisone (Prednisone) 20 Mg Tablet, 40 MG PO DAILY for 3 Days, #6 Prescribed by: MILLER ORTIZ MD on 06/21/18 1711 Last Action: Continued on 07/14/182116 by Tiffany Dodson Warfarin Sodium (Warfarin Sodium) 5 Mg Tablet, 5 MG PO DAILY for blood thinner, #30 (Reported) Entered as Reported by: KSENIA SANDERSON on 07/06/18 0130 Last Action: Converted on 07/14/182116 by Tiffany Dodson Zolpidem Tartrate (Zolpidem Tartrate) 5 Mg Tablet, 5 MG PO QHS for insomnia, Ref 0 (Reported) Entered as Reported by: KENNEY YANG on 05/16/182321 Last Action: Continued on 07/14/182116 by Tiffany Dodson Scheduled PRN Albuterol Sulfate (Albuterol Sulfate Conc Neb Soln) 2.5 Mg/0.5 Ml Vial.neb, 5 MG NEB PRN PRN for WHEEZING, Ref 0 (Reported) Entered as Reported by: ROMY PHELAN on 10/07/172035 Last Action: Converted on 07/14/182116 by Tiffany Dodson Albuterol Sulfate (Proair Hfa Inhaler) 8.5 Gm Hfa.aer.ad, 1 PUFF INH PRN Q6HRS PRN for SHORTNESS OF BREATH, #1 Ref 0 Prescribed by: MILLER ORTIZ MD on 06/21/18 1711 Last Action: Continued on 07/14/182116 by Tiffany Dodson Nitroglycerin (NITROGLYCERIN SubLingual) 0.4 Mg Tab.subl, 0.4 MG SL PRN Q5MIN PRN for CHEST PAIN, (Reported) Entered as Reported by: LOYDA CELAYA on 11/01/16 0013 Last Action: Continued on 07/14/182116 by Tiffany Dodson Oxycodone/Apap 10-325 (Percocet 10-325 Mg Tablet ) 1 Each Tablet, 2 TAB PO PRN Q4-6HRS PRN for PAIN MDD 1, #20 Ref 0 Prescribed by: CATHIE KNIGHT on 05/19/18 0913 Last Action: Continued on 07/14/182116 by Tiffany Dosdon [Percogesic] , 1 TAB PO QID PRN for PAIN, #10 Prescribed by: JOA-NN BLOUNT MD on 07/12/18 1514 Last Action: Converted on 07/14/182116 by CATHIE Macario MD Jul 15, 2018 11:06
--- NOTE | 2018-07-15 13:34 | NUR ---
SS following for discharge planning. SS reviewed pt chart. Pt is from home and is currently requiring oxygen. Discharge order on the chart for home with self care.
[2018-07-15 15:00] VITALS: BP 145/60
[2018-07-15] MEDS ORDERED: WARFARIN 5 MG TABLET. PO SCH (16:00)
--- NOTE | 2018-07-15 18:01 | NUR ---
Discharge Note: GRETCHEN BONILLA [facility] Discharge instructions and discharge home medications reviewed with Patient and a copy given. All questions have been answered and understanding verbalized.
== END 2018-07-15 18:00 | disposition home or self-care (01) ==
LOC: ER 17:13 → 2 SOUTH 18:25 → INTOOBSV 18:25
PROVIDERS: ADMIT Internal Medicine; ATTEND Internal Medicine
DX: I25.119 Atherosclerotic heart disease of native coronary artery with unspecified angina pectoris (principal); R11.2 Nausea with vomiting, unspecified; R06.02 Shortness of breath; G89.29 Other chronic pain; J44.9 Chronic obstructive pulmonary disease, unspecified; E78.00 Pure hypercholesterolemia, unspecified; I25.2 Old myocardial infarction; K21.9 Gastro-esophageal reflux disease without esophagitis; M19.90 Unspecified osteoarthritis, unspecified site; K80.20 Calculus of gallbladder without cholecystitis without obstruction; I50.22 Chronic systolic (congestive) heart failure; E11.22 Type 2 diabetes mellitus with diabetic chronic kidney disease; E78.5 Hyperlipidemia, unspecified; E66.9 Obesity, unspecified; I13.0 Hypertensive heart and chronic kidney disease with heart failure and stage 1 through stage 4 chronic kidney disease, or unspecified chronic kidney disease; N18.9 Chronic kidney disease, unspecified; E11.42 Type 2 diabetes mellitus with diabetic polyneuropathy; Z83.3 Family history of diabetes mellitus; Z95.0 Presence of cardiac pacemaker; Z68.41 Body mass index [BMI] 40.0-44.9, adult; Z99.81 Dependence on supplemental oxygen; Z96.659 Presence of unspecified artificial knee joint; Z90.710 Acquired absence of both cervix and uterus
CPT/HCPCS: 36415; 71045; 80053; 82553; 82962; 83690; 83735; 83880; 84484; 85025; 85610; 93005; 94760; 96374; 96376; 99284; G0378; J2270; J7512; G0379; 99285-25

== ENCOUNTER 2018-07-17 12:46 | Emergency (ER) | payer OTHER ==
[~2018-07-17] VITALS: Ht 162.6 cm; Wt 99.8 kg
[2018-07-17] MEDS ORDERED: ASPIRIN 325 MG TABLET PO ONE (13:15)
[2018-07-17] MEDS ORDERED: MORPHINE SULFATE 4 MG/ML VIAL. IV/SQ PRN (13:15)
[2018-07-17] MEDS ORDERED: NITROGLYCERIN SUBLINGUAL 0.4 MG BOTTLE OF 25. SL PRN (13:15)
--- NOTE | 2018-07-17 13:45 | RAD ---
PORTABLE CHEST 1V Clinical Indication: CHEST PAIN FOR 2-3 DAYS, HX OF CABBG Comparison: AP chest July 14, 2018. Findings: Left chest dual-chamber pacer. Median sternotomy wires. Atherosclerotic thoracic aorta. Borderline cardiomegaly, stable. Lungs are clear. There is no pneumothorax. No pleural effusion is appreciated. No acute bone abnormality. IMPRESSION: No acute cardiopulmonary process. Electronically signed by: Rajiv Zapata MD (07/17/2018 1:42 PM) [id number]
--- NOTE | 2018-07-17 14:17 | PHYS DOC ---
Past Medical History Past Medical History: Angina, CAD, CHF, COPD, Diabetes-Type II, High Cholesterol, Hypertension, [place], Other Additional Past Medical Histor: O2 DEPENDENT 3 L PRN, chronic pain Past Surgical History: Cholecystectomy, Coronary Bypass Surgery, Hysterectomy, Knee Replacement, Pacemaker, Other Additional Past Surgical Histo: STENTS Alcohol Use: None Drug Use: None Adult General Chief Complaint Chief Complaint: CHEST PAIN HPI HPI Patient is a 63 year old female with a history of hypertension, diabetes type 2, CAD, CHF, AK, who presents to the ED today complaining of a sharp no radiating constant 10 out of 10 left-sided chest, specifically around her pacem shea that has been going on for one week. Patient states she was seen in the ED 3 days ago, was hospitalized and discharge. She states the pain has not gone away. She states she is supposed to see her PCP next week. Looking back at her nose when she was hospitalized 3 days ago, she was noted to have a clean cut down recently. She is referred to follow-up as an outpatient with her parole agent as well as PCP. Patient states her pain to the left side of the chest is worse on movement of the left upper extremity. Denies anything specifically relieving the pain. Review of Systems Review of Systems Constitutional: Denies fever or chills [] Eyes: Denies change in visual acuity, redness, or eye pain [] HENT: Denies nasal congestion or sore throat [] Respiratory: Denies cough or shortness of breath [] Cardiovascular: Reports left-sided chest pain GI: Denies abdominal pain, nausea, vomiting, bloody stools or diarrhea [] : Denies dysuria or hematuria [] Musculoskeletal: Denies back pain or joint pain [] Integument: Denies rash or skin lesions [] Neurologic: Denies headache, focal weakness or sensory changes [] All other systems were reviewed and found to be within normal limits, except as documented in this note. Current Medications Current Medications Current Medications Medications (Trade) Dose Ordered Sig/Susan Start Time Stop Time Status Last Admin Dose Admin Aspirin (Jahaira Aspirin) 325 mg 1X ONCE 07/17/18 13:15 07/17/18 13:17 DC 07/17/18 14:22 325 MG Morphine Sulfate (Morphine Sulfate) 4 mg PRN Q15MIN PRN 07/17/18 13:15 07/18/18 13:14 07/17/18 14:24 4 MG Nitroglycerin (Nitrostat) 0.4 mg PRN Q5MIN PRN 07/17/18 13:15 07/18/18 13:14 07/17/18 14:23 0.4 MG Oxycodone/ Acetaminophen (Percocet 5/325) 2 tab 1X ONCE 07/17/18 16:00 07/17/18 16:01 DC 07/17/18 16:03 2 TAB Allergies Allergies Allergies Coded Allergies Type Severity Reaction Last Updated Verified ibuprofen Adverse Reaction Intermediate Nausea and Vomiting 12/02/17 Yes Physical Exam Physical Exam Constitutional: Well developed, well nourished, no acute distress, non-toxic appearance. [] HENT: Normocephalic, atraumatic, bilateral external ears normal, oropharynx moist, no oral exudates, nose normal. [] Eyes: PERRLA, EOMI, conjunctiva normal, no discharge. [] Neck: Normal range of motion, no tenderness, supple, no stridor. [] Cardiovascular:Pace rhythm, no murmur reproducible left sided chest pain on exam. Lungs & Thorax: Bilateral breath sounds clear to auscultation [] Abdomen: Bowel sounds normal, soft, no tenderness, no masses, no pulsatile masses. [] Skin: Warm, dry, no erythema, no rash. [] Back: No tenderness, no CVA tenderness. [] Extremities: No tenderness, no cyanosis, no clubbing, ROM intact, no edema. [] Neurologic: Alert and oriented X 3, normal motor function, normal sensory function, no focal deficits noted. [] Psychologic: Affect normal, judgement normal, mood normal. [] Current Patient Data Vital Signs Vital Signs Date Time Temp Pulse Resp B/P (MAP) Pulse Ox O2 Delivery O2 Flow Rate FiO2 07/17/18 16:03 16 98 Room Air 07/17/18 14:23 64 143/69 07/17/18 13:19 99.3 99.3 Lab Values Laboratory Tests Test 07/17/18 14:30 07/17/18 15:09 White Blood Count 8.5 x10^3/uL (4.0-11.0) Red Blood Count 4.54 x10^6/uL (3.50-5.40) Hemoglobin 12.3 g/dL (12.0-15.5) Hematocrit 38.2 % (36.0-47.0) Mean Corpuscular Volume 84 fL (79-100) Mean Corpuscular Hemoglobin 27 pg (25-35) Mean Corpuscular Hemoglobin Concent 32 g/dL (31-37) Red Cell Distribution Width 16.3 % (11.5-14.5) H Platelet Count 404 x10^3/uL (140-400) H Neutrophils (%) (Auto) 79 % (31-73) H Lymphocytes (%) (Auto) 13 % (24-48) L Monocytes (%) (Auto) 7 % (0-9) Eosinophils (%) (Auto) 1 % (0-3) Basophils (%) (Auto) 1 % (0-3) Neutrophils # (Auto) 6.7 x10^3uL (1.8-7.7) Lymphocytes # (Auto) 1.1 x10^3/uL (1.0-4.8) Monocytes # (Auto) 0.6 x10^3/uL (0.0-1.1) Eosinophils # (Auto) 0.1 x10^3/uL (0.0-0.7) Basophils # (Auto) 0.0 x10^3/uL (0.0-0.2) Prothrombin Time 29.8 SEC (11.7-14.0) H Prothrombin Time INR 2.9 (0.8-1.1) H PTT 47 SEC (24-38) H Sodium Level 139 mmol/L (136-145) Potassium Level 4.2 mmol/L (3.5-5.1) Chloride Level 98 mmol/L (98-107) Carbon Dioxide Level 36 mmol/L (21-32) H Anion Gap 5 (6-14) L Blood Urea Nitrogen 16 mg/dL (7-20) Creatinine 0.9 mg/dL (0.6-1.0) Estimated GFR (Cockcroft-Gault) 76.3 BUN/Creatinine Ratio 18 (6-20) Glucose Level 171 mg/dL (70-99) H Calcium Level 9.8 mg/dL (8.5-10.1) Magnesium Level 2.0 mg/dL (1.8-2.4) Total Bilirubin 0.2 mg/dL (0.2-1.0) Aspartate Amino Transferase (AST) 18 U/L (15-37) Alanine Aminotransferase (ALT) 30 U/L (14-59) Alkaline Phosphatase 104 U/L (46-116) Creatine Kinase 46 U/L (26-192) Creatine Kinase MB (Mass) 1.0 ng/mL (0.0-3.6) Creatine Kinase MB Relative Index 2.2 % (0-4) Troponin I Quantitative < 0.017 ng/mL (0.000-0.055) LM-Oxj-L-Type Natriuretic Peptide 518 pg/mL (0-124) H Total Protein 8.0 g/dL (6.4-8.2) Albumin 3.1 g/dL (3.4-5.0) L Albumin/Globulin Ratio 0.6 (1.0-1.7) L Thyroid Stimulating Hormone (TSH) 0.157 uIU/mL (0.358-3.74) L Urine Collection Type Unknown Urine Color Yellow Urine Clarity Cloudy Urine pH 8.0 Urine Specific Ashby 1.015 Urine Protein Negative mg/dL (NEG-TRACE) Urine Glucose (UA) Negative mg/dL (NEG) Urine Ketones (Stick) Negative mg/dL (NEG) Urine Blood Negative (NEG) Urine Nitrite Negative (NEG) Urine Bilirubin Negative (NEG) Urine Urobilinogen Dipstick 1.0 mg/dL (0.2 mg/dL) Urine Leukocyte Esterase Negative (NEG) Urine RBC 1-2 /HPF (0-2) Urine WBC Occ /HPF (0-4) Urine Squamous Epithelial Cells Mod /LPF Urine Bacteria Few /HPF (0-FEW) Urine Opiates Screen Neg (NEG) Urine Methadone Screen Neg (NEG) Urine Barbiturates Neg (NEG) Urine Phencyclidine Screen Neg (NEG) Urine Amphetamine/Methamphetamine Neg (NEG) Urine Benzodiazepines Screen Neg (NEG) Urine Cocaine Screen Neg (NEG) Urine Cannabinoids Screen Neg (NEG) Urine Ethyl Alcohol Neg (NEG) Laboratory Tests 07/17/18 14:30 Laboratory Tests 07/17/18 14:30 EKG EKG Interpreted by Dr. Klein sinus rhyth lef bundle branch block similar to EKG on 07/05/18 no STEMI[] Radiology/Procedures Radiology/Procedures []PROCEDURE: PORTABLE CHEST 1V PORTABLE CHEST 1V Clinical Indication: CHEST PAIN FOR 2-3 DAYS, HX OF CABBG Comparison: AP chest July 14, 2018. Findings: Left chest dual-chamber pacer. Median sternotomy wires. Atherosclerotic thoracic aorta. Borderline cardiomegaly, stable. Lungs are clear. There is no pneumothorax. No pleural effusion is appreciated. No acute bone abnormality. IMPRESSION: No acute cardiopulmonary process. Electronically signed by: Erwin Zapata MD (07/17/2018 1:42 PM) [id number] DICTATED and SIGNED BY: ERWIN ZAPATA MD DATE: 07/17/18 1342 Course & Med Decision Making Course & Med Decision Making Pertinent Labs and Imaging studies reviewed. (See chart for details) This is a 63-year-old female patient presenting to the ED today with complaints of chest pain for week, patient was hospitalized on July 14, 2018 which is roughly 3 days ago for similar complaints. She was worked up and they could not find any acute cause for her pain, she was sent at home. Documentation from admission notes shows she has a recent clean catheterization. EKG is negative for any acute findings, labs including cardiac work up are negative. Chest xray is negative. Heart score 4 1522 Spoke with [facility] MANAGER [facility] She recommended patient be discharged to home and follow-up with her parole agent Dr. Pat as an outpatient. She also recommended we discharged patient on Imdur her 30 mg daily Information was given to patient, she states she still has the chest pain and is requesting to stay. She has been given pain medications in the ED. She seems to ask for more and more pain medicine as she stays in the ED Spoke with Dr. Macias, who requested we discharge patient to home and have her follow-up with the parole agent as well as PCP as an outpatient considering she was discharged 3 days ago and was worked up with no acute findings. Information given to patient. She is asking for pain medicine for home use. Ktracs shows she filled oxycodone 180 tablets 30 day supply on 06/25/2018. Informed her we will not refill her oxycodone considering she was given 30 day supply. She can take OTC medicines. Dragon Disclaimer Dragon Disclaimer This electronic medical record was generated, in whole or in part, using a voice recognition dictation system. Departure Departure Impression: Primary Impression: Chest pain Disposition: HOME, SELF-CARE Condition: STABLE Referrals: JENSEN CUEVAS (PCP) Follow up in the course of next week NYDIA PAT MD follow up as soon as you can Patient Instructions: Chest Pain (Nonspecific), [id number] Additional Instructions: You were evaluated in the emergency for chronic chest pain. Please follow up with your parole agent and primary care doctor as soon as possible. Come back to the ED if symptoms worsen. Scripts Isosorbide Mononitrate (ISOSORBIDE MONONITRATE ER) 30 Mg Tab.er.24h 1 TAB PO DAILY, #7 TAB 5 Refills Prov: DESMOND CARSON APRN 07/17/18 Problem Qualifiers Primary Impression: Chest pain Chest pain type: unspecified Qualified Codes: R07.9 - Chest pain, un specified DESMOND CARSON APRN Jul 17, 2018 14:17
--- NOTE | 2018-07-17 14:23 | EKG ---
[facility] [address] [place] [address] Test Date: 2018-07-17 Test Time: 13:28:44 Pat Name: GRETCHEN BONILLA Department: Room: Gender: F Director Of Religious Life: : 1955 Requested By: DESMOND CARSON Order Number: [id number] Reading MD: Rafal Fernandez Measurements Intervals [place] Rate: 64 P: -87 [place]: 116 QRS: -165 QRSD: 148 T: 88 QT: 452 QTc: 470 Interpretive Statements SINUS RHYTHM ABNORMAL RIGHT SUPERIOR AXIS DEVIATION NON SPECIFIC INTRAVENTRICULAR BLOCK RVH WITH REPOLARIZATION ABNORMALITY QRS(T) CONTOUR ABNORMALITY CONSISTENT WITH ANTEROLATERAL INFARCT AGE UNDETERMINED CONSISTENT WITH INFERIOR INFARCT PROBABLY OLD ABNORMAL ECG Electronically Signed On 07-22-2018 12:10:34 CDT by Rafal Fernandez
[2018-07-17 14:54] LABS: BASO % 1 % (0-3); EOS # 0.1 x10^3/uL (0.0-0.7); EOS % 1 % (0-3); HEMATOCRIT 38.2 % (36.0-47.0); HEMOGLOBIN 12.3 g/dL (12.0-15.5); LYMPH # 1.1 x10^3/uL (1.0-4.8); LYMPH % 13 % (24-48); MEAN CORPUSCULAR HEMOGLOBIN 27 pg (25-35); MEAN CORPUSCULAR HGB CONC 32 g/dL (31-37); MEAN CORPUSCULAR VOLUME 84 fL (79-100); MONO # 0.6 x10^3/uL (0.0-1.1); MONO % 7 % (0-9); NEUT # 6.7 x10^3uL (1.8-7.7); NEUT % 79 % (31-73); PLATELET COUNT 404 x10^3/uL (140-400); RED BLOOD COUNT 4.54 x10^6/uL (3.50-5.40); RED CELL DISTRIBUTION WIDTH 16.3 % (11.5-14.5); WHITE BLOOD COUNT 8.5 x10^3/uL (4.0-11.0)
[2018-07-17 15:01] LABS: PROTHROMBIN TIME PATIENT 29.8 SEC (11.7-14.0)
[2018-07-17 15:04] LABS: CALCIUM 9.8 mg/dL (8.5-10.1); CREATININE 0.9 mg/dL (0.6-1.0); GFR 76.3; POTASSIUM 4.2 mmol/L (3.5-5.1)
[2018-07-17 15:12] LABS: ALBUMIN 3.1 g/dL (3.4-5.0); ALBUMIN/GLOBULIN RATIO 0.6 (1.0-1.7); TOTAL BILIRUBIN 0.2 mg/dL (0.2-1.0)
[2018-07-17 15:16] LABS: BILIRUBIN,URINE NEGATIVE (NEG); CLARITY,URINE CLOUDY; COLOR,URINE YELLOW; NITRITE,URINE NEGATIVE (NEG); PROTEIN,URINE NEGATIVE (NEG-TRACE)
[2018-07-17 15:24] LABS: AMPHETAMINE/METHAMPHETAMINE NEG (NEG); BARBITURATES NEG (NEG); BENZODIAZEPINES NEG (NEG); CANNABINOIDS NEG (NEG); COCAINE NEG (NEG); METHADONE NEG (NEG); OPIATES NEG (NEG); PHENCYCLIDINE NEG (NEG)
[2018-07-17 15:30] VITALS: BP 124/59
[2018-07-17 15:33] LABS: BACTERIA,URINE FEW /HPF (0-FEW); SQUAMOUS EPITHELIAL CELL,UR MOD /LPF; WBC,URINE OCC /HPF (0-4)
[2018-07-17] MEDS ORDERED: oxyCODONE/APAP 5/325 1 TAB TABLET PO ONE (16:00)
[2018-07-17] MEDS ORDERED: ISOS30TA4 PO (16:02)
== END 2018-07-17 16:37 | disposition home or self-care (01) ==
LOC: ER 12:46
DX: R07.89 Other chest pain (principal); I11.0 Hypertensive heart disease with heart failure; I50.9 Heart failure, unspecified; E78.00 Pure hypercholesterolemia, unspecified; I25.10 Atherosclerotic heart disease of native coronary artery without angina pectoris; J44.9 Chronic obstructive pulmonary disease, unspecified; I25.2 Old myocardial infarction; G89.29 Other chronic pain; Z95.0 Presence of cardiac pacemaker; Z95.5 Presence of coronary angioplasty implant and graft; Z95.1 Presence of aortocoronary bypass graft; Z88.8 Allergy status to other drugs, medicaments and biological substances
CPT/HCPCS: 36415; 71045; 80053; 80307; 81001; 82553; 83735; 83880; 84443; 84484; 85025; 85610; 85730; 93005; 96374; 99285; J2270

== ENCOUNTER 2018-08-13 17:51 | Emergency (ER) | payer OTHER ==
[~2018-08-13] VITALS: Ht 162.6 cm; Wt 104.3 kg
[~2018-08-13 17:51] MED LIST changes: +ISOS30TA4 PO
[2018-08-13 18:21] LABS: BILIRUBIN,URINE NEGATIVE (NEG); CLARITY,URINE CLEAR; COLOR,URINE YELLOW; NITRITE,URINE NEGATIVE (NEG); PROTEIN,URINE NEGATIVE (NEG-TRACE)
[2018-08-13 18:35] LABS: BACTERIA,URINE FEW /HPF (0-FEW); SQUAMOUS EPITHELIAL CELL,UR MOD /LPF
--- NOTE | 2018-08-13 18:40 | PHYS DOC ---
Past Medical History Past Medical History: Angina, CAD, CHF, COPD, Diabetes-Type II, High Cholesterol, Hypertension, [place], Other Additional Past Medical Histor: O2 DEPENDENT 3 L PRN, chronic pain (MARCIO GARCIA APRN) Past Surgical History: Cholecystectomy, Coronary Bypass Surgery, Hysterectomy, Knee Replacement, Pacemaker, Other Additional Past Surgical Histo: STENTS (MARCIO GARCIA APRN) Alcohol Use: None Drug Use: None (MARCIO GARCIA APRN) Adult General Chief Complaint Chief Complaint: ABDOMINAL PAIN HPI HPI 63 y/o female presents to ER via POV for c/o mid abd pain x2 days w/intermittent N/V/D. She denies fever, urinary sxs, CP, palpitations, or SOA. She reports she had 2 episodes of vomiting today and 1 diarrhea episode. Denies any bloody stools. She denies recent travel or other at home w/similar illness. (MARCIO GARCIA APRN) Review of Systems Review of Systems Constitutional: Denies fever or chills [] Eyes: Denies change in visual acuity, redness, or eye pain [] HENT: Denies nasal congestion or sore throat [] Respiratory: Denies cough or shortness of breath [] Cardiovascular: No additional information not addressed in HPI [] GI: Denies bloody stools. Reports mid abd pain with intermittent N/V/D : Denies dysuria or hematuria [] Musculoskeletal: Denies back pain or joint pain [] Integument: Denies rash or skin lesions [] Neurologic: Denies headache, focal weakness or sensory changes. Denies dizziness Endocrine: Denies polyuria or polydipsia [] All other systems were reviewed and found to be within normal limits, except as documented in this note. (MARCIO GARCIA APRN) Current Medications Current Medications Current Medications Medications (Trade) Dose Ordered Sig/Susan Start Time Stop Time Status Last Admin Dose Admin Fentanyl Citrate (Fentanyl 2ml Vial) 50 mcg 1X ONCE 08/13/18 18:30 08/13/18 18:31 DC 08/13/18 19:21 50 MCG Info (CONTRAST GIVEN -- Rx MONITORING) 1 each PRN DAILY PRN 08/13/18 20:15 08/15/18 20:14 Iohexol (Omnipaque 300 Mg/ml) 75 ml 1X ONCE 08/13/18 20:00 08/13/18 20:03 DC 08/13/18 20:08 75 ML Morphine Sulfate (Morphine Sulfate) 4 mg 1X ONCE 08/13/18 20:00 08/13/18 20:03 DC 08/13/18 20:35 4 MG Ondansetron HCl (Zofran) 4 mg 1X ONCE 08/13/18 18:30 08/13/18 18:31 DC 08/13/18 19:20 4 MG Sodium Chloride 500 ml @ 500 mls/hr 1X ONCE 08/13/18 18:30 08/13/18 19:29 DC 08/13/18 19:23 500 MLS/HR (CELINE CARSON APRN) Allergies Allergies Allergies Coded Allergies Type Severity Reaction Last Updated Verified ibuprofen Adverse Reaction Intermediate Nausea and Vomiting 12/02/17 Yes (CELINE CARSON APRN) Physical Exam Physical Exam Constitutional: Well developed, well nourished, no acute distress, non-toxic appearance. [] HENT: Normocephalic, atraumatic, bilateral external ears normal, oropharynx moist, no oral exudates, nose normal. [] Eyes: PERRLA, EOMI, conjunctiva normal, no discharge. [] Neck: Normal range of motion, no tenderness, supple, no stridor. [] Cardiovascular:Heart rate regular rhythm, no murmur [] Lungs & Thorax: Bilateral breath sounds clear to auscultation [] Abdomen: Bowel sounds normal, soft, no tenderness, no masses, no pulsatile masses. [] Skin: Warm, dry, no erythema, no rash. [] Back: No tenderness, no CVA tenderness. [] Extremities: No tenderness, no cyanosis, no clubbing, ROM intact, no edema. [] Neurologic: Alert and oriented X 3, normal motor function, normal sensory function, no focal deficits noted. [] Psychologic: Affect normal, judgement normal, mood normal. [] (REFFITT,MARCIO Cerda APRN) Current Patient Data Vital Signs Vital Signs Date Time Temp Pulse Resp B/P (MAP) Pulse Ox O2 Delivery O2 Flow Rate FiO2 08/13/18 20:35 97 08/13/18 18:05 98.4 60 18 142/66 (91) Room Air 98.4 (MUTUNGA,CELINE LOGISTICS RESEARCH ENGINEER) Lab Values Laboratory Tests Test 08/13/18 18:00 08/13/18 19:00 08/13/18 19:10 Urine Collection Type Unknown Urine Color Yellow Urine Clarity Clear Urine pH 8.0 Urine Specific [place] 1.015 Urine Protein Negative mg/dL (NEG-TRACE) Urine Glucose (UA) Negative mg/dL (NEG) Urine Ketones (Stick) Negative mg/dL (NEG) Urine Blood Negative (NEG) Urine Nitrite Negative (NEG) Urine Bilirubin Negative (NEG) Urine Urobilinogen Dipstick 2.0 mg/dL (0.2 mg/dL) Urine Leukocyte Esterase Negative (NEG) Urine RBC 1-2 /HPF (0-2) Urine WBC 1-4 /HPF (0-4) Urine Squamous Epithelial Cells Mod /LPF Urine Bacteria Few /HPF (0-FEW) White Blood Count 7.6 x10^3/uL (4.0-11.0) Red Blood Count 4.28 x10^6/uL (3.50-5.40) Hemoglobin 11.6 g/dL (12.0-15.5) L Hematocrit 36.0 % (36.0-47.0) Mean Corpuscular Volume 84 fL (79-100) Mean Corpuscular Hemoglobin 27 pg (25-35) Mean Corpuscular Hemoglobin Concent 32 g/dL (31-37) Red Cell Distribution Width 16.4 % (11.5-14.5) H Platelet Count 326 x10^3/uL (140-400) Neutrophils (%) (Auto) 71 % (31-73) Lymphocytes (%) (Auto) 18 % (24-48) L Monocytes (%) (Auto) 10 % (0-9) H Eosinophils (%) (Auto) 0 % (0-3) Basophils (%) (Auto) 1 % (0-3) Neutrophils # (Auto) 5.4 x10^3uL (1.8-7.7) Lymphocytes # (Auto) 1.4 x10^3/uL (1.0-4.8) Monocytes # (Auto) 0.8 x10^3/uL (0.0-1.1) Eosinophils # (Auto) 0.0 x10^3/uL (0.0-0.7) Basophils # (Auto) 0.1 x10^3/uL (0.0-0.2) Sodium Level 135 mmol/L (136-145) L Potassium Level 4.5 mmol/L (3.5-5.1) Chloride Level 95 mmol/L (98-107) L Carbon Dioxide Level 33 mmol/L (21-32) H Anion Gap 7 (6-14) Blood Urea Nitrogen 29 mg/dL (7-20) H Creatinine 1.1 mg/dL (0.6-1.0) H Estimated GFR (Cockcroft-Gault) 60.5 BUN/Creatinine Ratio 26 (6-20) H Glucose Level 141 mg/dL (70-99) H Calcium Level 10.5 mg/dL (8.5-10.1) H Total Bilirubin 0.5 mg/dL (0.2-1.0) Aspartate Amino Transferase (AST) 24 U/L (15-37) Alanine Aminotransferase (ALT) 29 U/L (14-59) Alkaline Phosphatase 106 U/L (46-116) Troponin I Quantitative < 0.017 ng/mL (0.000-0.055) Total Protein 8.9 g/dL (6.4-8.2) H Albumin 3.6 g/dL (3.4-5.0) Albumin/Globulin Ratio 0.7 (1.0-1.7) L Lactic Acid Level 1.4 mmol/L (0.4-2.0) Laboratory Tests 08/13/18 19:00 Laboratory Tests 08/13/18 19:00 (MUTUNGA,CELINE LOGISTICS RESEARCH ENGINEER) Lab Values Laboratory Tests Test 08/13/18 18:00 08/13/18 19:00 08/13/18 19:10 Urine Collection Type Unknown Urine Color Yellow Urine Clarity Clear Urine pH 8.0 Urine Specific [place] 1.015 Urine Protein Negative mg/dL (NEG-TRACE) Urine Glucose (UA) Negative mg/dL (NEG) Urine Ketones (Stick) Negative mg/dL (NEG) Urine Blood Negative (NEG) Urine Nitrite Negative (NEG) Urine Bilirubin Negative (NEG) Urine Urobilinogen Dipstick 2.0 mg/dL (0.2 mg/dL) Urine Leukocyte Esterase Negative (NEG) Urine RBC 1-2 /HPF (0-2) Urine WBC 1-4 /HPF (0-4) Urine Squamous Epithelial Cells Mod /LPF Urine Bacteria Few /HPF (0-FEW) White Blood Count 7.6 x10^3/uL (4.0-11.0) Red Blood Count 4.28 x10^6/uL (3.50-5.40) Hemoglobin 11.6 g/dL (12.0-15.5) L Hematocrit 36.0 % (36.0-47.0) Mean Corpuscular Volume 84 fL (79-100) Mean Corpuscular Hemoglobin 27 pg (25-35) Mean Corpuscular Hemoglobin Concent 32 g/dL (31-37) Red Cell Distribution Width 16.4 % (11.5-14.5) H Platelet Count 326 x10^3/uL (140-400) Neutrophils (%) (Auto) 71 % (31-73) Lymphocytes (%) (Auto) 18 % (24-48) L Monocytes (%) (Auto) 10 % (0-9) H Eosinophils (%) (Auto) 0 % (0-3) Basophils (%) (Auto) 1 % (0-3) Neutrophils # (Auto) 5.4 x10^3uL (1.8-7.7) Lymphocytes # (Auto) 1.4 x10^3/uL (1.0-4.8) Monocytes # (Auto) 0.8 x10^3/uL (0.0-1.1) Eosinophils # (Auto) 0.0 x10^3/uL (0.0-0.7) Basophils # (Auto) 0.1 x10^3/uL (0.0-0.2) Sodium Level 135 mmol/L (136-145) L Potassium Level 4.5 mmol/L (3.5-5.1) Chloride Level 95 mmol/L (98-107) L Carbon Dioxide Level 33 mmol/L (21-32) H Anion Gap 7 (6-14) Blood Urea Nitrogen 29 mg/dL (7-20) H Creatinine 1.1 mg/dL (0.6-1.0) H Estimated GFR (Cockcroft-Gault) 60.5 BUN/Creatinine Ratio 26 (6-20) H Glucose Level 141 mg/dL (70-99) H Calcium Level 10.5 mg/dL (8.5-10.1) H Total Bilirubin 0.5 mg/dL (0.2-1.0) Aspartate Amino Transferase (AST) 24 U/L (15-37) Alanine Aminotransferase (ALT) 29 U/L (14-59) Alkaline Phosphatase 106 U/L (46-116) Troponin I Quantitative < 0.017 ng/mL (0.000-0.055) Total Protein 8.9 g/dL (6.4-8.2) H Albumin 3.6 g/dL (3.4-5.0) Albumin/Globulin Ratio 0.7 (1.0-1.7) L Lactic Acid Level 1.4 mmol/L (0.4-2.0) Laboratory Tests 08/13/18 19:00 Laboratory Tests 08/13/18 19:00 (MARCIO GARCIA APRN) EKG EKG EKG obtained 08/13/18 at [address] Iyer Paced rhythm Rate 62 (MARCIO GARCIA APRN) Radiology/Procedures Radiology/Procedures [] (MARCIO GARCIA APRN) Radiology/Procedures PROCEDURE: CT ABD PELV W/ IV CONTRST ONLY CT ABD PELV W/ IV CONTRST ONLY Indication: Mid abdominal pain, left abdominal pain for 2 day Technique: Postcontrast CT imaging was performed of the abdomen pelvis, multiplanar reconstruction images submitted. No oral contrast was given. One or more of the following individualized dose reduction techniques were utilized for this examination: 1. Automated exposure control 2. Adjustment of the mA and/or kV according to patient size 3. Use of iterative reconstruction technique. Comparison: October 19, 2016 Findings: There is some linear likely fibrotic change of the lower lobes bilaterally at the lung bases as seen previously. There are electronic leads from cardiac device was not fully included. No new focal abnormality is identified of the liver, spleen, pancreas. Both kidneys enhance, no hydronephrosis. There is slightly exophytic hypodense lesion of the inferior right kidney as seen previously about 1.9 cm, density measurements of a cyst at 8-9 Hounsfield units. There is no adrenal nodularity. Evaluation of bowel is limited without oral contrast, no bowel dilatation, free fluid, free air. There could be some mild small bowel wall thickening in the left upper quadrant of the abdomen although could be related to peristalsis and incomplete distention. There is again some laxity of the ventral fascia with apparently underlying mesh. There is also more discrete small fat-containing hernia in the left of the ventral abdomen pelvis previously containing short segment of small bowel which is not present in the hernia sac in today's exam, transverse hernia sac measurement of about 2.4 cm. There is also a small, shallow left ventral fat-containing hernia in the abdomen images 32 series 2 with neck about 1.7 cm, transverse hernia sac about 3 cm, no internal bowel. Appendix is not confidently identified if still present. There is mild colonic diverticulosis greatest of the sigmoid and distal transverse colon not associated with adjacent inflammatory-type change. There is multilevel lumbar facet hypertrophic change, grade 1 anterior spondylolisthesis L4-5., IMPRESSION: 1. There is a small fat-containing left pelvic ventral hernia, no internal bowel. There is also small shallow fat-containing left ventral abdominal hernia, no internal bowel. No significant localized inflammatory type change is seen about the bowel although a degree of mild small bowel wall thickening in the left abdomen as could be seen with enteritis is not excluded. Electronically signed by: Jerardo Webb MD (08/13/2018 8:33 PM) [facility] DICTATED and SIGNED BY: JERARDO WEBB MD DATE: 08/13/182032 (CELINE CARSON APRN) Course & Med Decision Making Course & Med Decision Making Pertinent Labs and Imaging studies reviewed. (See chart for details) 1944: On reevaluation patient reports no relief and abdominal pain following IV fentanyl. Discussed test results WBC and lactic acid normal limits. EKG with no acute ST elevation or STEMI and troponin was negative. UA negative for infection. With patient's ongoing abdominal pain will obtain CT abdomen and pelvis and provide additional dose of pain medication. 1956: Celine Carson NP will assume care of pt for further care/disposition. Discussed pt's case with her. (MARCIO GARCIA APRN) Course & Med Decision Making CT negative for any acute findings, noted for may be possible enteritis. Patient's white count is normal. Patient is well known to this ED for pain related complaints. Results were discussed with patient. Gave her prescription f or dicyclomine and Zofran. Instructed to follow-up with the PCP in the course of this week as well as GI. (CELINE CARSON APRN) Dragon Disclaimer Dragon Disclaimer This electronic medical record was generated, in whole or in part, using a voice recognition dictation system. (MARCIO GARCIA APRN) Departure Departure Impression: Primary Impression: Abdominal pain Additional Impression: Vomiting and diarrhea Disposition: HOME, SELF-CARE Condition: STABLE Referrals: JENSEN CUEVAS (PCP) Follow-up in the course of this week AUDIE ARIAS MD Follow-up in the course of this week Patient Instructions: Abdominal Pain (Nonspecific), Diarrhea, Edso-vw-Fbur, Nausea and Vomiting Additional Instructions: You were evaluated in the emergency room. We put you on medications, take them as prescribed. Please contact your own doctor and follow-up in the course of this week. Also follow-up with the GI doctor provided. Scripts Ondansetron (ONDANSETRON ODT) 4 Mg Tab.rapdis 1 TAB PO PRN Q6-8HRS, #16 TAB Prov: CELINE CARSON APRN 08/13/18 Dicyclomine Hcl (DICYCLOMINE HCL) 20 Mg Tablet 1 TAB PO TID, #30 TAB 0 Refills Prov: CELINE CARSON APRN 08/13/18 Problem Qualifiers Primary Impression: Abdominal pain Abdominal location: unspecified location Qualified Codes: R10.9 - Unspecified abdominal pain MARCIO GACRIA APRN August 13, 2018 18:40 CELINE CARSON APRN August 13, 2018 21:06
[2018-08-13 19:09] LABS: BASO # 0.1 x10^3/uL (0.0-0.2); BASO % 1 % (0-3); EOS % 0 % (0-3); HEMOGLOBIN 11.6 g/dL (12.0-15.5); LYMPH # 1.4 x10^3/uL (1.0-4.8); LYMPH % 18 % (24-48); MEAN CORPUSCULAR HEMOGLOBIN 27 pg (25-35); MEAN CORPUSCULAR HGB CONC 32 g/dL (31-37); MEAN CORPUSCULAR VOLUME 84 fL (79-100); MONO # 0.8 x10^3/uL (0.0-1.1); MONO % 10 % (0-9); NEUT # 5.4 x10^3uL (1.8-7.7); NEUT % 71 % (31-73); PLATELET COUNT 326 x10^3/uL (140-400); RED BLOOD COUNT 4.28 x10^6/uL (3.50-5.40); RED CELL DISTRIBUTION WIDTH 16.4 % (11.5-14.5); WHITE BLOOD COUNT 7.6 x10^3/uL (4.0-11.0)
[2018-08-13 19:18] LABS: CALCIUM 10.5 mg/dL (8.5-10.1); CREATININE 1.1 mg/dL (0.6-1.0); GFR 60.5; POTASSIUM 4.5 mmol/L (3.5-5.1)
[2018-08-13] MEDS: ONDANSETRON PF 4 MG/2 ML VIAL. IV ONE (19:20)
[2018-08-13] MEDS: fentaNYL PF VIAL 100 MCG/2 ML VIAL IV ONE (19:21)
[2018-08-13] MEDS: IV NORMAL SALINE 500ML BAG 500 ML IV ONE (19:23)
[2018-08-13 19:26] LABS: ALBUMIN 3.6 g/dL (3.4-5.0); ALBUMIN/GLOBULIN RATIO 0.7 (1.0-1.7); TOTAL BILIRUBIN 0.5 mg/dL (0.2-1.0); TOTAL PROTEIN 8.9 g/dL (6.4-8.2)
[2018-08-13] MEDS: IOHEXOL 300 MG/ML 100ML VIAL. IV ONE (20:08)
[2018-08-13] MEDS ORDERED: CONTRAST GIVEN. MC PRN (20:15)
[2018-08-13 20:30] VITALS: BP 165/72
[2018-08-13] MEDS: MORPHINE SULFATE 4 MG/ML VIAL. IV ONE (20:35)
--- NOTE | 2018-08-13 20:36 | RAD ---
CT ABD PELV W/ IV CONTRST ONLY Indication: Mid abdominal pain, left abdominal pain for 2 day Technique: Postcontrast CT imaging was performed of the abdomen pelvis, multiplanar reconstruction images submitted. No oral contrast was given. One or more of the following individualized dose reduction techniques were utilized for this examination: 1. Automated exposure control 2. Adjustment of the mA and/or kV according to patient size 3. Use of iterative reconstruction technique. Comparison: October 19, 2016 Findings: There is some linear likely fibrotic change of the lower lobes bilaterally at the lung bases as seen previously. There are electronic leads from cardiac device was not fully included. No new focal abnormality is identified of the liver, spleen, pancreas. Both kidneys enhance, no hydronephrosis. There is slightly exophytic hypodense lesion of the inferior right kidney as seen previously about 1.9 cm, density measurements of a cyst at 8-9 Hounsfield units. There is no adrenal nodularity. Evaluation of bowel is limited without oral contrast, no bowel dilatation, free fluid, free air. There could be some mild small bowel wall thickening in the left upper quadrant of the abdomen although could be related to peristalsis and incomplete distention. There is again some laxity of the ventral fascia with apparently underlying mesh. There is also more discrete small fat-containing hernia in the left of the ventral abdomen pelvis previously containing short segment of small bowel which is not present in the hernia sac in today's exam, transverse hernia sac measurement of about 2.4 cm. There is also a small, shallow left ventral fat-containing hernia in the abdomen images 32 series 2 with neck about 1.7 cm, transverse hernia sac about 3 cm, no internal bowel. Appendix is not confidently identified if still present. There is mild colonic diverticulosis greatest of the sigmoid and distal transverse colon not associated with adjacent inflammatory-type change. There is multilevel lumbar facet hypertrophic change, grade 1 anterior spondylolisthesis L4-5., IMPRESSION: 1. There is a small fat-containing left pelvic ventral hernia, no internal bowel. There is also small shallow fat-containing left ventral abdominal hernia, no internal bowel. No significant localized inflammatory type change is seen about the bowel although a degree of mild small bowel wall thickening in the left abdomen as could be seen with enteritis is not excluded. Electronically signed by: Javier Solomon MD (08/13/2018 8:33 PM) [facility]
[2018-08-13] MEDS ORDERED: DICY20TA3 PO (21:06)
[2018-08-13] MEDS ORDERED: ONDA4TAB12 PO (21:06)
--- NOTE | 2018-08-14 06:13 | EKG ---
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
== END 2018-08-13 21:30 | disposition home or self-care (01) ==
LOC: ER 17:51
DX: R11.2 Nausea with vomiting, unspecified (principal); R19.7 Diarrhea, unspecified; R10.9 Unspecified abdominal pain; K43.9 Ventral hernia without obstruction or gangrene; E78.00 Pure hypercholesterolemia, unspecified; I25.2 Old myocardial infarction; E11.9 Type 2 diabetes mellitus without complications; I11.0 Hypertensive heart disease with heart failure; I50.9 Heart failure, unspecified; I25.10 Atherosclerotic heart disease of native coronary artery without angina pectoris; G89.29 Other chronic pain; Z90.49 Acquired absence of other specified parts of digestive tract; Z90.710 Acquired absence of both cervix and uterus; Z95.1 Presence of aortocoronary bypass graft; Z96.659 Presence of unspecified artificial knee joint; Z95.0 Presence of cardiac pacemaker; Z88.6 Allergy status to analgesic agent
CPT/HCPCS: 36415; 74177; 80053; 81001; 83605; 84484; 85025; 93005; 96374; 96375; 99285; J2270; J2405; J3010; J7040; Q9967

== ENCOUNTER 2018-08-30 16:33 | Inpatient (IN) | payer OTHER ==
[~2018-08-30] VITALS: Ht 162.6 cm; Wt 106.3 kg
[~2018-08-30 16:33] MED LIST changes: +DICY20TA3 PO; +ONDA4TAB12 PO
[2018-08-30] MEDS ORDERED: ASPIRIN 325 MG TABLET PO ONE (16:45)
[2018-08-30 16:55] LABS: BASO # 0.1 x10^3/uL (0.0-0.2); BASO % 1 % (0-3); EOS % 0 % (0-3); HEMATOCRIT 33.1 % (36.0-47.0); HEMOGLOBIN 10.8 g/dL (12.0-15.5); LYMPH # 1.3 x10^3/uL (1.0-4.8); LYMPH % 14 % (24-48); MEAN CORPUSCULAR HEMOGLOBIN 28 pg (25-35); MEAN CORPUSCULAR HGB CONC 33 g/dL (31-37); MEAN CORPUSCULAR VOLUME 85 fL (79-100); MONO # 0.5 x10^3/uL (0.0-1.1); MONO % 5 % (0-9); NEUT # 7.4 x10^3uL (1.8-7.7); NEUT % 80 % (31-73); PLATELET COUNT 285 x10^3/uL (140-400); RED BLOOD COUNT 3.91 x10^6/uL (3.50-5.40); RED CELL DISTRIBUTION WIDTH 16.2 % (11.5-14.5); WHITE BLOOD COUNT 9.2 x10^3/uL (4.0-11.0)
[2018-08-30 17:07] LABS: CALCIUM 9.8 mg/dL (8.5-10.1); GFR 67.5; POTASSIUM 3.9 mmol/L (3.5-5.1)
[2018-08-30 17:14] LABS: ALBUMIN 3.3 g/dL (3.4-5.0); ALBUMIN/GLOBULIN RATIO 0.7 (1.0-1.7); MAGNESIUM 1.8 mg/dL (1.8-2.4); TOTAL BILIRUBIN 0.5 mg/dL (0.2-1.0); TOTAL PROTEIN 8.3 g/dL (6.4-8.2)
--- NOTE | 2018-08-30 17:28 | PHYS DOC ---
Past Medical History Past Medical History: Angina, CAD, CHF, COPD, Diabetes-Type II, High Cholesterol, Hypertension, KS, Other Additional Past Medical Histor: O2 DEPENDENT 3 L PRN, chronic pain Past Surgical History: Angioplasty, Cholecystectomy, Coronary Bypass Surgery, Hysterectomy, Knee Replacement, Pacemaker, Other Additional Past Surgical Histo: STENTS Alcohol Use: None Drug Use: None Adult General Chief Complaint Chief Complaint: CHEST PAIN HPI HPI Patient is a 63 year old female with history of hypertension, CHF, high cholesterol, diabetes type 2, angina, KS among other illnesses who presents to the ED today complaining of 8 out of 10 left sided sharp intermittent chest pain that has been going on since yesterday. Patient is also complaining of shortness of air on exertion and nausea. Patient denies anything specifically relieving her pain. She states she took an aspirin as well as nitroglycerin with no relief. Denies any fever, denies any coughing or congestion. She states she did not come yesterday because she is trying to "stretch her visits to the ED" because she comes frequently. She is smiling about this statement. She also states she is on oxycodone for her chronic pain but she ran out of the medications and left a voicemail at her physician's office on Friday. PCP Dr. Chapman. Review of Systems Review of Systems Constitutional: Denies fever or chills [] Eyes: Denies change in visual acuity, redness, or eye pain [] HENT: Denies nasal congestion or sore throat [] Respiratory: Reports shortness of breath. Denies cough Cardiovascular: reports chest pain GI: Denies abdominal pain, nausea, vomiting, bloody stools or diarrhea [] : Denies dysuria or hematuria [] Musculoskeletal: Denies back pain or joint pain [] Integument: Denies rash or skin lesions [] Neurologic: Denies headache, focal weakness or sensory changes [] All other systems were reviewed and found to be within normal limits, except as documented in this note. Current Medications Current Medications Current Medications Medications (Trade) Dose Ordered Sig/Susan Start Time Stop Time Status Last Admin Dose Admin Acetaminophen (Tylenol) 650 mg PRN Q4HRS PRN 08/30/18 19:00 08/31/18 18:59 Albuterol/ Ipratropium (Duoneb) 3 ml 1X ONCE 08/30/18 18:00 08/30/18 18:01 DC 08/30/18 17:36 3 ML Aspirin (Jahaira Aspirin) 325 mg 1X ONCE 08/30/18 16:45 08/30/18 16:46 DC 08/30/18 16:51 325 MG Clonidine HCl (Catapres) 0.2 mg 1X ONCE 08/30/18 17:30 08/30/18 17:30 DC Ketorolac Tromethamine (Toradol 30mg Vial) 30 mg 1X ONCE 08/30/18 17:30 08/30/18 17:31 DC 08/30/18 17:28 30 MG Morphine Sulfate (Morphine Sulfate) 4 mg PRN Q2HR PRN 08/30/18 19:00 08/31/18 18:59 Nitroglycerin (Nitrostat) 0.4 mg PRN Q5MIN PRN 08/30/18 19:00 08/31/18 18:59 Ondansetron HCl (Zofran) 4 mg PRN Q8HRS PRN 08/30/18 19:00 08/31/18 18:59 Allergies Allergies Allergies Coded Allergies Type Severity Reaction Last Updated Verified ibuprofen Adverse Reaction Intermediate Nausea and Vomiting 12/02/17 Yes Physical Exam Physical Exam Constitutional: Well developed, well nourished, no acute distress, non-toxic appearance. [] HENT: Normocephalic, atraumatic, bilateral external ears normal, oropharynx moist, no oral exudates, nose normal. [] Eyes: PERRLA, EOMI, conjunctiva normal, no discharge. [] Neck: Normal range of motion, no tenderness, supple, no stridor. [] Cardiovascular:Heart rate regular rhythm, no murmur [] Lungs & Thorax: Bilateral breath sounds clear to auscultation [] Abdomen: Bowel sounds normal, soft, no tenderness, no masses, no pulsatile masses. [] Skin: Warm, dry, no erythema, no rash. [] Back: No tenderness, no CVA tenderness. [] Extremities: No tenderness, no cyanosis, no clubbing, ROM intact, no edema. [] Neurologic: Alert and oriented X 3, normal motor function, normal sensory function, no focal deficits noted. [] Psychologic: Affect normal, judgement normal, mood normal. [] Current Patient Data Vital Signs Vital Signs Date Time Temp Pulse Resp B/P (MAP) Pulse Ox O2 Delivery O2 Flow Rate FiO2 08/30/18 18:08 64 19 180/74 (109) 92 Room Air 08/30/18 16:35 98.4 98.4 Lab Values Laboratory Tests Test 08/30/18 16:50 White Blood Count 9.2 x10^3/uL (4.0-11.0) Red Blood Count 3.91 x10^6/uL (3.50-5.40) Hemoglobin 10.8 g/dL (12.0-15.5) L Hematocrit 33.1 % (36.0-47.0) L Mean Corpuscular Volume 85 fL (79-100) Mean Corpuscular Hemoglobin 28 pg (25-35) Mean Corpuscular Hemoglobin Concent 33 g/dL (31-37) Red Cell Distribution Width 16.2 % (11.5-14.5) H Platelet Count 285 x10^3/uL (140-400) Neutrophils (%) (Auto) 80 % (31-73) H Lymphocytes (%) (Auto) 14 % (24-48) L Monocytes (%) (Auto) 5 % (0-9) Eosinophils (%) (Auto) 0 % (0-3) Basophils (%) (Auto) 1 % (0-3) Neutrophils # (Auto) 7.4 x10^3uL (1.8-7.7) Lymphocytes # (Auto) 1.3 x10^3/uL (1.0-4.8) Monocytes # (Auto) 0.5 x10^3/uL (0.0-1.1) Eosinophils # (Auto) 0.0 x10^3/uL (0.0-0.7) Basophils # (Auto) 0.1 x10^3/uL (0.0-0.2) Sodium Level 136 mmol/L (136-145) Potassium Level 3.9 mmol/L (3.5-5.1) Chloride Level 96 mmol/L (98-107) L Carbon Dioxide Level 31 mmol/L (21-32) Anion Gap 9 (6-14) Blood Urea Nitrogen 12 mg/dL (7-20) Creatinine 1.0 mg/dL (0.6-1.0) Estimated GFR (Cockcroft-Gault) 67.5 BUN/Creatinine Ratio 12 (6-20) Glucose Level 252 mg/dL (70-99) H Calcium Level 9.8 mg/dL (8.5-10.1) Magnesium Level 1.8 mg/dL (1.8-2.4) Total Bilirubin 0.5 mg/dL (0.2-1.0) Aspartate Amino Transferase (AST) 16 U/L (15-37) Alanine Aminotransferase (ALT) 23 U/L (14-59) Alkaline Phosphatase 100 U/L (46-116) Creatine Kinase 76 U/L (26-192) Creatine Kinase MB (Mass) 0.8 ng/mL (0.0-3.6) Creatine Kinase MB Relative Index 1.1 % (0-4) Troponin I Quantitative < 0.017 ng/mL (0.000-0.055) IN-Wrk-N-Type Natriuretic Peptide 1650 pg/mL (0-124) H Total Protein 8.3 g/dL (6.4-8.2) H Albumin 3.3 g/dL (3.4-5.0) L Albumin/Globulin Ratio 0.7 (1.0-1.7) L Thyroid Stimulating Hormone (TSH) 0.795 uIU/mL (0.358-3.74) Laboratory Tests 08/30/18 16:50 Laboratory Tests 08/30/18 16:50 EKG EKG 16:[address] Goodman sinus rhythm with right bundle branch block HR 87 no STEMI-EKG similar to 07/17/2018 Radiology/Procedures Radiology/Procedures []PROCEDURE: PORTABLE CHEST 1V Indication:Chest pain TECHNIQUE:Portable AP chest X-ray COMPARISON: 07/17/2018 FINDINGS: CABG changes noted. Stable position of left chest wall cardiac pacer with its leads projecting over the heart. Diffuse bilateral interstitial opacities are seen with prominent bronchovascular markings. No focal consolidation. No pneumothorax or large pleural effusion. Visualized bony thorax within normal limits. IMPRESSION: Findings suggests interstitial pulmonary edema or atypical/viral infection. Electronically signed by: Fede Purvis DO (08/30/2018 5:35 PM) [facility] DICTATED and SIGNED BY: FEDE PURVIS DO DATE: 08/30/18 4450 Course & Med Decision Making Course & Med Decision Making Pertinent Labs and Imaging studies reviewed. (See chart for details) This is a 63-year-old female patient well known to this ED presenting today complaining of chest pain and shortness of breath, symptoms began yesterday. She is also complaining of nausea EKG with no acute findings, lab work is reassuring. Patient has another negative workup in the ED. Heart Score [address] Macias who accepted patient for admission. Dragon Disclaimer Dragon Disclaimer This electronic medical record was generated, in whole or in part, using a voice recognition dictation system. Departure Departure Impression: Primary Impression: Nausea & vomiting Additional Impressions: Chest pain Shortness of breath Disposition: ADMITTED INPATIENT Condition: STABLE Referrals: JENSEN CUEVAS (PCP) Problem Qualifiers Primary Impression: Nausea & vomiting Vomiting type: unspecified Vomiting Intractability: unspecified Qualified Codes: R11.2 - Nausea with vomiting, unspecified Additional Impressions: Chest pain Chest pain type: unspecified Qualified Codes: R07.9 - Chest pain, unspecified DESMOND CARSON DIRECTOR [employer] Aug 30, 2018 17:28
[2018-08-30] MEDS ORDERED: KETOROLAC 30 MG/ML VIAL. IV ONE (17:30)
[2018-08-30] MEDS ORDERED: ONDANSETRON PF 4 MG/2 ML VIAL. IV ONE (17:30)
[2018-08-30] MEDS ORDERED: cloNIDine HCL 0.1 MG TABLET PO ONE (17:30)
--- NOTE | 2018-08-30 17:38 | RAD ---
Indication:Chest pain TECHNIQUE:Portable AP chest X-ray COMPARISON: 07/17/2018 FINDINGS: CABG changes noted. Stable position of left chest wall cardiac pacer with its leads projecting over the heart. Diffuse bilateral interstitial opacities are seen with prominent bronchovascular markings. No focal consolidation. No pneumothorax or large pleural effusion. Visualized bony thorax within normal limits. IMPRESSION: Findings suggests interstitial pulmonary edema or atypical/viral infection. Electronically signed by: Fede Purvis DO (08/30/2018 5:35 PM) [facility]
[2018-08-30] MEDS ORDERED: IPRATRPIUM/ALBUTEROL 0.5/2.5MG 3 ML NEBU. NEB ONE (18:00)
[2018-08-30] MEDS ORDERED: ONDANSETRON PF 4 MG/2 ML VIAL. IV PRN (19:00)
[2018-08-30] MEDS ORDERED: NITROGLYCERIN SUBLINGUAL 0.4 MG BOTTLE OF 25. SL PRN ×2 (19:00→23:30)
[2018-08-30] MEDS ORDERED: MORPHINE SULFATE 4 MG/ML VIAL. IV PRN (19:00)
[2018-08-30] MEDS ORDERED: ACETAMINOPHEN 325 MG TABLET. PO PRN (19:00)
[2018-08-30 19:43] VITALS: BP 166/66
--- NOTE | 2018-08-30 20:00 | NUR ---
A 63 Y.O. FEMALE ADMITTED TO [facility] WITH CHEST PAIN. ASSESSMENT COMPLETE. ORIENTED TO UNIT, STAFF, EXPLAINED POC. CALL LIGHT IN PLACE WILL CONT TO MONITOR FOR STATUS CHANGE AND SAFETY. PMRN
[2018-08-30] MEDS ORDERED: ZOLPIDEM 5 MG TABLET. PO PRN (20:45)
[2018-08-30] MEDS ORDERED: HYDROcodone/APAP 10/325 1 TAB TABLET PO PRN (21:00)
[2018-08-30 21:05] LABS: PROTHROMBIN TIME PATIENT 22.3 SEC (11.7-14.0)
[2018-08-30] MEDS ORDERED: WARFARIN 3 MG TABLET. PO ONE (21:30)
[2018-08-30] MEDS: clonazePAM 0.5 MG TABLET PO SCH (22:07)
[2018-08-30] MEDS: FAMOTIDINE 20 MG TABLET. PO SCH (22:07)
[2018-08-30] MEDS: ATORVASTATIN CALCIUM 20 MG TABLET PO SCH (22:07)
[2018-08-30] MEDS: METOPROLOL TART IMMED RELEASE 25 MG TABLET. PO SCH (22:08)
[2018-08-30] MEDS: ZOLPIDEM 5 MG TABLET. PO PRN (22:08)
[2018-08-30 22:29] LABS: BILIRUBIN,URINE SMALL (NEG); CLARITY,URINE CLOUDY; COLOR,URINE YELLOW; NITRITE,URINE NEGATIVE (NEG); PH,URINE 6.5; PROTEIN,URINE 30 mg/dL (NEG-TRACE)
[2018-08-30 22:33] LABS: BACTERIA,URINE FEW /HPF (0-FEW); SQUAMOUS EPITHELIAL CELL,UR MANY /LPF
[2018-08-30 22:34] LABS: RBC,URINE OCC /HPF (0-2)
[2018-08-30 22:35] LABS: AMPHETAMINE/METHAMPHETAMINE NEG (NEG); BARBITURATES NEG (NEG); BENZODIAZEPINES NEG (NEG); CANNABINOIDS NEG (NEG); COCAINE NEG (NEG); METHADONE NEG (NEG); OPIATES POS (NEG); PHENCYCLIDINE NEG (NEG)
[2018-08-30] MEDS ORDERED: METO25TA4 PO (23:20)
[2018-08-30] MEDS ORDERED: INSU100V13 SQ (23:20)
[2018-08-30] MEDS ORDERED: INSU100C4 SQ (23:20)
[2018-08-30 23:29] VITALS: BP 136/59
[2018-08-30] MEDS ORDERED: ALBUTEROL SULFATE 5 MG NEB PRN (23:30)
[2018-08-30] MEDS ORDERED: ALBUTEROL SULFATE 2.5 MG/3 ML NEBU. INH PRN (23:30)
[2018-08-30] MEDS ORDERED: ONDANSETRON ODT 4 MG TAB.RAPDIS. PO PRN (23:45)
[2018-08-31] MEDS ORDERED: DEXTROSE 50% 25 GM / 50ML DISP.SYRIN. IV PRN (01:15)
[2018-08-31 03:00] VITALS: BP 118/70
[2018-08-31] MEDS: oxyCODONE/APAP 10/325 1 TAB TABLET PO PRN ×5 (04:04→22:20)
[2018-08-31 04:24] LABS: BASO % 0 % (0-3); EOS % 1 % (0-3); HEMATOCRIT 31.3 % (36.0-47.0); HEMOGLOBIN 10.3 g/dL (12.0-15.5); LYMPH # 1.6 x10^3/uL (1.0-4.8); LYMPH % 22 % (24-48); MEAN CORPUSCULAR HEMOGLOBIN 28 pg (25-35); MEAN CORPUSCULAR HGB CONC 33 g/dL (31-37); MEAN CORPUSCULAR VOLUME 85 fL (79-100); MONO # 0.6 x10^3/uL (0.0-1.1); MONO % 8 % (0-9); NEUT % 69 % (31-73); PLATELET COUNT 268 x10^3/uL (140-400); RED CELL DISTRIBUTION WIDTH 16.7 % (11.5-14.5); WHITE BLOOD COUNT 7.3 x10^3/uL (4.0-11.0)
[2018-08-31 04:29] LABS: PROTHROMBIN TIME PATIENT 23.1 SEC (11.7-14.0)
[2018-08-31 04:39] LABS: CALCIUM 9.6 mg/dL (8.5-10.1); CREATININE 0.9 mg/dL (0.6-1.0); GFR 76.3; POTASSIUM 3.9 mmol/L (3.5-5.1)
[2018-08-31 07:11] VITALS: BP 141/48
--- NOTE | 2018-08-31 08:22 | EKG ---
[facility] [address] [place] [address] Test Date: 2018-08-30 Test Time: 16:38:15 Pat Name: GRETCHEN BONILLA Department: Room: Gender: F [employer] Clerk: : [id number] Requested By: DESMOND CARSON Order Number: [id number] Reading MD: Measurements Intervals [place] Rate: 87 P: -90 MT: 130 QRS: -152 QRSD: 142 T: 75 QT: 418 QTc: 504 Interpretive Statements SINUS RHYTHM ABNORMAL RIGHT SUPERIOR AXIS DEVIATION LOW LIMB LEAD VOLTAGE NON SPECIFIC INTRAVENTRICULAR BLOCK RVH WITH REPOLARIZATION ABNORMALITY QRS(T) CONTOUR ABNORMALITY CONSISTENT WITH ANTERIOR INFARCT AGE UNDETERMINED CONSISTENT WITH INFEROLATERAL INFARCT PROBABLY OLD ABNORMAL ECG RI6.01 Unconfirmed report No previous ECG available for comparison
--- NOTE | 2018-08-31 08:29 | PDOC1 ---
History and Physical Date of Admission Date of Admission DATE: 08/31/18 TIME: 08:26 Identification/Chief Complaint Chief Complaint Chest pain Source Source: Patient History of Present Illness History of Present Illness 63 year old female with history of HTN, DM, chronic pain, and CAD (s/p stenting, CABG 2014 and PPM), COPD, SSS s/p PPM and recently started coumadin on 05/08/18, who presents to the ED today complaining of 8 out of 10 left sided sharp intermittent chest pain that has been going on since yesterday. Patient is also complaining of shortness of air on exertion and nausea. Patient denies anything specifically relieving her pain. She states she took an aspirin as well as nitroglycerin with no relief. Denies any fever, denies any coughing or congestion. She states she did not come yesterday because she is trying to "stretch her visits to the ED" because she comes frequently. She is smiling about this statement. She also states she is on oxycodone for her chronic pain but she ran out of the medications and left a voicemail at her physician's office on Friday. She does note she has had additional ankle swelling at home the past 3 days and had nausea so missed 3 doses of lasix and did have to take an additional dose 1x last week. Still takes metolazone MWF. For the past 3-4 days has had increasing dyspnea on exertion and chest pain on exertion. Found with CXR consistent with cardiomegaly and concern for interstitial edema, BNP elevated EKG appears to have right axis deviation. Sees retail analytics manager at [facility], still on carvedilol 6.25mg and had metolazone 5mg q 48 hours added to her meds. She states she has not missed doses of her home meds, states she would like her 10mg ambien and 10-325mg oxycodone/apap continued while inpatient. Past Medical History Cardiovascular: CAD, CHF, HTN, [place], Hyperlipidemia, Other Pulmonary: COPD CENTRAL NERVOUS SYSTEM: Periperal neuropathy GI: GERD Heme/Onc: No pertinent hx Hepatobiliary: Cholelithiasis Psych: No pertinent hx Musculoskeletal: Osteoarthritis Rheumatologic: No pertinent hx Infectious disease: No pertinent hx Renal/: Chronic renal insuff Endocrine: Diabetes Past Surgical History Past Surgical History: Pacemaker, Appendectomy, Cholecystectomy, Total knee replacement, Hysterectomy Family History Family History: Diabetes Family History: Parent Social History ALCOHOL: none Drugs: None Current Problem List Problem List Problems Medical Problems: (1) Nausea & vomiting Status: Acute (2) Shortness of breath Status: Acute Current Medications Current Medications Current Medications Aspirin (Jahaira Aspirin) 325 mg 1X ONCE PO Last administered on 08/30/18at 16:51; Start 08/30/18 at 16:45; Stop 08/30/18 at 16:46; Status DC Ondansetron HCl (Zofran) 4 mg 1X ONCE IV Last administered on 08/30/18at 17:28; Start 08/30/18 at 17:30; Stop 08/30/18 at 17:31; Status DC Ketorolac Tromethamine (Toradol 30mg Vial) 30 mg 1X ONCE IV Last administered on 08/30/18at 17:28; Start 08/30/18 at 17:30; Stop 08/30/18 at 17:31; Status DC Clonidine HCl (Catapres) 0.2 mg 1X ONCE PO ; Start 08/30/18 at 17:30; Stop 08/30/18 at 17:30; Status DC Albuterol/ Ipratropium (Duoneb) 3 ml 1X ONCE NEB Last administered on 08/30/18at 17:36; Start 08/30/18 at 18:00; Stop 08/30/18 at 18:01; Status DC Ondansetron HCl (Zofran) 4 mg PRN Q8HRS PRN IV NAUSEA/VOMITING; Start 08/30/18 at 19:00; Stop 08/31/18 at 18:59 Morphine Sulfate (Morphine Sulfate) 4 mg PRN Q2HR PRN IV PAIN; Start 08/30/18 at 19:00; Stop 08/31/18 at 18:59 Acetaminophen (Tylenol) 650 mg PRN Q4HRS PRN PO FEVER; Start 08/30/18 at 19:00; Stop 08/31/18 at 18:59 Nitroglycerin (Nitrostat) 0.4 mg PRN Q5MIN PRN SL CHEST PAIN; Start 08/30/18 at 19:00; Stop 08/30/18 at 23:42; Status DC Zolpidem Tartrate (Ambien) 5 mg PRN QHS PRN PO INSOMNIA Last administered on 08/30/18at 22:08; Start 08/30/18 at 20:45 Warfarin Sodium (Coumadin) 3 mg 1X ONCE PO Last administered on 08/30/18at 22:19; Start 08/30/18 at 21:30; Stop 08/30/18 at 21:31; Status DC Atorvastatin Calcium (Lipitor) 20 mg QHS PO Last administered on 08/30/18at 22:07; Start 08/30/18 at 21:00 Famotidine (Pepcid) 20 mg BID PO Last administered on 08/30/18at 22:07; Start 08/30/18 at 21:00 Clonazepam (KlonoPIN) 0.5 mg TID PO Last administered on 08/30/18at 22:07; Start 08/30/18 at 21:00 Metoprolol Tartrate (Lopressor) 25 mg BID PO Last administered on 08/30/18at 22:08; Start 08/30/18 at 21:00 Zolpidem Tartrate (Ambien) 5 mg HS PRN PO INSOMNIA; Start 08/30/18 at 20:45; Status UNV Acetaminophen/ Hydrocodone Bitart (Lortab 10/325) 2 tab PRN Q4HRS PRN PO SEVERE PAIN Last administered on 08/30/18at 22:10; Start 08/30/18 at 21:00; Stop 08/31/18 at 01:38; Status DC Warfarin Sodium (Coumadin Per Physician) 1 each PRN DAILY PRN MC SEE COMMENTS Last administered on 08/31/18at 00:59; Start 08/30/18 at 21:30 Albuterol Sulfate (Ventolin Neb Soln) 5 mg PRN Q6HRS PRN INH SHORTNESS OF BREATH; Start 08/30/18 at 23:30 Aspirin (Ecotrin) 81 mg DAILY PO ; Start 08/31/18 at 09:00 Atorvastatin Calcium (Lipitor) 20 mg HS PO ; Start 08/31/18 at 21:00; Status UNV Clonazepam (KlonoPIN) 0.5 mg TID PO ; Start 08/31/18 at 09:00; Status UNV Famotidine (Pepcid) 20 mg BID PO ; Start 08/31/18 at 09:00; Status UNV Fluoxetine HCl (PROzac) 20 mg DAILY PO ; Start 08/31/18 at 09:00 Furosemide (Lasix) 80 mg BID92 PO ; Start 08/31/18 at 09:00 Glimepiride (Amaryl) 2 mg DAILY PO ; Start 08/31/18 at 09:00 Metoprolol Tartrate (Lopressor) 25 mg BID PO ; Start 08/31/18 at 09:00; Status UNV Nitroglycerin (Nitrostat) 0.4 mg PRN Q5MIN PRN SL CHEST PAIN; Start 08/30/18 at 23:30 Oxycodone/ Acetaminophen (Percocet 10/325) 2 tab PRN Q4HRS PRN PO SEVERE PAIN Last administered on 08/31/18at 04:04; Start 08/30/18 at 23:30 Zolpidem Tartrate (Ambien) 5 mg QHS PO ; Start 08/31/18 at 21:00; Status UNV Non-Formulary Medication (Albuterol Sulfate (Albuterol Sulfate Conc Neb Soln)) 5 mg PRN PRN NEB WHEEZING; Start 08/30/18 at 23:30; Status UNV Capsaicin (Zostrix) 1 tre PRN TID PRN TP TOPICAL PAIN; Start 08/31/18 at 00:00 Insulin Human Lispro (HumaLOG) 20 units TIDWMEALS SQ ; Start 08/31/18 at 08:00 Losartan Potassium (Cozaar) 100 mg DAILY PO ; Start 08/31/18 at 09:00 Ondansetron HCl (Zofran Odt) 4 mg PRN Q8HRS PRN PO NAUSEA/VOMITING 1ST CHOICE; Start 08/30/18 at 23:45 Insulin Glargine (Lantus) 32 units BID SQ ; Start 08/31/18 at 21:00 Dextrose (Dextrose 50%-Water Syringe) 12.5 gm PRN Q15MIN PRN IV SEE COMMENTS; Start 08/31/18 at 01:15 Active Scripts Active Ondansetron Odt (Ondansetron) 4 Mg Tab.rapdis 1 Tab PO PRN Q6-8HRS Zofran (Ondansetron Hcl) 4 Mg Tablet 1 Tab PO PRN Q6-8HRS Proair Hfa Inhaler (Albuterol Sulfate) 8.5 Gm Hfa.aer.ad 1 Puff INH PRN Q6HRS PRN Percocet 10-325 Mg Tablet (Oxycodone/Acetaminophen) 1 Each Tablet 2 Tab PO PRN Q4-6HRS PRN MDD 1 Amaryl (Glimepiride) 2 Mg Tablet 2 Mg PO DAILY 30 Days Reported Metoprolol Tartrate 25 Mg Tablet 25 Mg PO BID Novolog (Insulin Aspart) 100 Unit/1 Ml Cartridge 20 Unit SQ TIDWMEALS Levemir (Insulin Detemir) 100 Unit/1 Ml Vial 32 Unit SQ BID PRN Capsaicin 60 Gm Cream..g. 60 Gm TP PRN TID Calcium 500 + Vit D 200 Caplet (Calcium Carbonate/Vitamin D3) 1 Each Tablet 1 Each PO DAILY Zolpidem Tartrate 5 Mg Tablet 5 Mg PO QHS Clonazepam 0.5 Mg Tablet 0.5 Mg PO TID Fluoxetine Hcl 20 Mg Capsule 1 Cap PO DAILY Famotidine 20 Mg Tablet 20 Mg PO BID Losartan Potassium 100 Mg Tablet 100 Mg PO DAILY Furosemide 80 Mg Tablet 80 Mg PO BID Albuterol Sulfate Conc Neb Soln (Albuterol Sulfate) 2.5 Mg/0.5 Ml Vial.neb 5 Mg NEB PRN PRN Ferrous Sulfate 325 Mg Tablet 1 Tab PO DAILY NITROGLYCERIN SubLingual (Nitroglycerin) 0.4 Mg Tab.subl 0.4 Mg SL PRN Q5MIN PRN Atorvastatin Calcium 20 Mg Tablet 20 Mg PO HS Aspir 81 (Aspirin) 81 Mg Tablet.dr 1 Tab PO DAILY Allergies Allergies: Coded Allergies: ibuprofen (Verified Adverse Reaction, Intermediate, Nausea and Vomiting, 12/02/17) ROS General: YES: Fatigue, Malaise; No: Chills, Night Sweats, Appetite, Other PSYCHOLOGICAL ROS: YES: Anxiety; No: Behavioral Disorder, Concentration difficultie, Decreased libido, Depression, Disorientation, Hallucinations, Hostility, Irritablity, Memory difficulties, Mood Swings, Obsessive thoughts, Physical abuse, Sexual abuse, Sleep disturbances, Suicidal ideation, Other Eyes: No Blurry vision, No Decreased vision, No Double vision, No Dry eyes, No Excessive tearing, No Eye Pain, No Itchy Eyes, No Loss of vision, No Photophobia, No Scotomata, No Uses contacts, No Uses glasses, No Other HEENT: No: Heacaches, Visual Changes, Hearing change, Nasal congestion, Nasal discharge, Oral lesions, Sinus pain, Sore Throat, Epistaxis, Sneezing, Snoring, Tinnitus, Vertigo, Vocal changes, Other ALLERGY AND IMMUNOLOGY: No: Hives, Insect Bite Sensitivity, Itchy/Watery Eyes, Nasal Congestion, Post Nasal Drip, Seasonal Allergies, Other Hematological and Lymphatic: No: Bleeding Problems, Blood Clots, Blood T ransfusions, Brusing, Night Sweats, Pallor, Swollen Lymph Nodes, Other ENDOCRINE: No: Breast Changes, Galactorrhea, Hair Pattern Changes, Hot Flashes, Malaise/lethargy, Mood Swings, Palpitations, Polydipsia/polyuria, Skin Changes, Temperature Intolerance, Unexpected Weight Changes, Other Breast: No New/Changing Breast Lumps, No Nipple changes, No Nipple discharge, No Other Respiratory: YES: Cough, Shortness of breath, SOB with excertion, Tachypnea; No: Hemoptysis, Orthopnea, Pleuritic Pain, Sputum Changes, Stridor, Wheezing, Other Cardiovascular: yes Chest Pain, yes Orthopnea, yes Paroxysmal Noc. Dyspnea, yes Edema; No Palpitations, No Lt Headedness, No Other Gastrointestinal: Yes Nausea; No Vomiting, No Abdominal Pain, No Diarrhea, No Constipation, No Melena, No Hematochezia, No Other Genitourinary: No Dysuria, No Frequency, No Incontinence, No Hematuria, No Retention, No Discharge, No Urgency, No Pain, No Flank Pain, No Other, No , No , No , No , No , No , No Musculoskeletal: No Gait Disturbance, No Joint Pain, No Joint Stiffness, No Joint Swelling, No Muscle Pain, No Muscular Weakness, No Pain In:, No Swelling In:, No Other Neurological: No Behavorial Changes, No Bowel/Bladder ControlChng, No Confusion, No Dizziness, No Gait Disturbance, No Headaches, No Impaired Coord /balance, No Memory Loss, No Numbness/Tingling, No Seizures, No Speech Problems, No Tremors, No Visual Changes, No Weakness, No Other Skin: No Dry Skin, No Eczema, No Hair Changes, No Lumps, No Mole Changes, No Mottling, No Nail Changes, No Pruritus, No Rash, No Skin Lesion Changes, No Other, No Acne Physical Exam General: Alert, Oriented X3, Cooperative, No acute distress HEENT: Atraumatic, PERRLA, EOMI, Mucous membr. moist/pink Lungs: Other (Basilar crackles) Heart: S1S2, RRR Abdomen: Normal bowel sounds, Soft, No tenderness, No hepatosplenomegaly, No masses Rectal Exam: not examined Extremities: No clubbing, No cyanosis, Normal pulses, No tenderness/swelling, Other (2+ edema) Skin: No breakdown, No significant lesion, Other (Venous stasis dermatitis) Neuro: Normal gait, Normal speech, Strength at 5/5 X4 ext, Normal tone, Sensation intact, Cranial nerves 3-12 NL, Reflexes 2+ Psych/Mental Status: Mental status NL, Mood NL Vitals Vitals Vital Signs Date Time Temp Pulse Resp B/P (MAP) Pulse Ox O2 Delivery O2 Flow Rate FiO2 08/31/18 07:11 97.9 60 16 141/48 (79) 97 Room Air 97.9 08/31/18 05:15 2.0 Labs Labs Laboratory Tests Test 08/30/18 16:50 08/30/18 20:40 08/30/18 22:00 08/30/18 22:40 White Blood Count 9.2 x10^3/uL (4.0-11.0) Red Blood Count 3.91 x10^6/uL (3.50-5.40) Hemoglobin 10.8 g/dL (12.0-15.5) Hematocrit 33.1 % (36.0-47.0) Mean Corpuscular Volume 85 fL (79-100) Mean Corpuscular Hemoglobin 28 pg (25-35) Mean Corpuscular Hemoglobin Concent 33 g/dL (31-37) Red Cell Distribution Width 16.2 % (11.5-14.5) Platelet Count 285 x10^3/uL (140-400) Neutrophils (%) (Auto) 80 % (31-73) Lymphocytes (%) (Auto) 14 % (24-48) Monocytes (%) (Auto) 5 % (0-9) Eosinophils (%) (Auto) 0 % (0-3) Basophils (%) (Auto) 1 % (0-3) Neutrophils # (Auto) 7.4 x10^3uL (1.8-7.7) Lymphocytes # (Auto) 1.3 x10^3/uL (1.0-4.8) Monocytes # (Auto) 0.5 x10^3/uL (0.0-1.1) Eosinophils # (Auto) 0.0 x10^3/uL (0.0-0.7) Basophils # (Auto) 0.1 x10^3/uL (0.0-0.2) Prothrombin Time 22.3 SEC (11.7-14.0) Prothromb Time International Ratio 2.0 (0.8-1.1) Sodium Level 136 mmol/L (136-145) Potassium Level 3.9 mmol/L (3.5-5.1) Chloride Level 96 mmol/L (98-107) Carbon Dioxide Level 31 mmol/L (21-32) Anion Gap 9 (6-14) Blood Urea Nitrogen 12 mg/dL (7-20) Creatinine 1.0 mg/dL (0.6-1.0) Estimated GFR (Cockcroft-Gault) 67.5 BUN/Creatinine Ratio 12 (6-20) Glucose Level 252 mg/dL (70-99) Calcium Level 9.8 mg/dL (8.5-10.1) Magnesium Level 1.8 mg/dL (1.8-2.4) Total Bilirubin 0.5 mg/dL (0.2-1.0) Aspartate Amino Transf (AST/SGOT) 16 U/L (15-37) Alanine Aminotransferase (ALT/SGPT) 23 U/L (14-59) Alkaline Phosphatase 100 U/L (46-116) Creatine Kinase 76 U/L (26-192) Creatine Kinase MB (Mass) 0.8 ng/mL (0.0-3.6) Creatine Kinase MB Relative Index 1.1 % (0-4) Troponin I Quantitative < 0.017 ng/mL (0.000-0.055) < 0.017 ng/mL (0.000-0.055) OB-Zif-C-Type Natriuretic Peptide 1650 pg/mL (0-124) Total Protein 8.3 g/dL (6.4-8.2) Albumin 3.3 g/dL (3.4-5.0) Albumin/Globulin Ratio 0.7 (1.0-1.7) Thyroid Stimulating Hormone (TSH) 0.795 uIU/mL (0.358-3.74) Glucose (Fingerstick) 90 mg/dL (70-99) Urine Collection Type Unknown Urine Color Yellow Urine Clarity Cloudy Urine pH 6.5 Urine Specific [place] 1.020 Urine Protein 30 mg/dL (NEG-TRACE) Urine Glucose (UA) 100 mg/dL (NEG) Urine Ketones (Stick) Negative mg/dL (NEG) Urine Blood Negative (NEG) Urine Nitrite Negative (NEG) Urine Bilirubin Small (NEG) Urine Urobilinogen Dipstick 2.0 mg/dL (0.2 mg/dL) Urine Leukocyte Esterase Small (NEG) Urine RBC Occ /HPF (0-2) Urine WBC 5-10 /HPF (0-4) Urine Squamous Epithelial Cells Many /LPF Urine Bacteria Few /HPF (0-FEW) Urine Mucus Slight /LPF Urine Opiates Screen Pos (NEG) Urine Methadone Screen Neg (NEG) Urine Barbiturates Neg (NEG) Urine Phencyclidine Screen Neg (NEG) Urine Amphetamine/Methamphetamine Neg (NEG) Urine Benzodiazepines Screen Neg (NEG) Urine Cocaine Screen Neg (NEG) Urine Cannabinoids Screen Neg (NEG) Urine Ethyl Alcohol Neg (NEG) Test 08/31/18 03:55 08/31/18 07:02 White Blood Count 7.3 x10^3/uL (4.0-11.0) Red Blood Count 3.70 x10^6/uL (3.50-5.40) Hemoglobin 10.3 g/dL (12.0-15.5) Hematocrit 31.3 % (36.0-47.0) Mean Corpuscular Volume 85 fL (79-100) Mean Corpuscular Hemoglobin 28 pg (25-35) Mean Corpuscular Hemoglobin Concent 33 g/dL (31-37) Red Cell Distribution Width 16.7 % (11.5-14.5) Platelet Count 268 x10^3/uL (140-400) Neutrophils (%) (Auto) 69 % (31-73) Lymphocytes (%) (Auto) 22 % (24-48) Monocytes (%) (Auto) 8 % (0-9) Eosinophils (%) (Auto) 1 % (0-3) Basophils (%) (Auto) 0 % (0-3) Neutrophils # (Auto) 5.0 x10^3uL (1.8-7.7) Lymphocytes # (Auto) 1.6 x10^3/uL (1.0-4.8) Monocytes # (Auto) 0.6 x10^3/uL (0.0-1.1) Eosinophils # (Auto) 0.0 x10^3/uL (0.0-0.7) Basophils # (Auto) 0.0 x10^3/uL (0.0-0.2) Prothrombin Time 23.1 SEC (11.7-14.0) Prothromb Time International Ratio 2.1 (0.8-1.1) Sodium Level 139 mmol/L (136-145) Potassium Level 3.9 mmol/L (3.5-5.1) Chloride Level 99 mmol/L (98-107) Carbon Dioxide Level 34 mmol/L (21-32) Anion Gap 6 (6-14) Blood Urea Nitrogen 17 mg/dL (7-20) Creatinine 0.9 mg/dL (0.6-1.0) Estimated GFR (Cockcroft-Gault) 76.3 Glucose Level 101 mg/dL (70-99) Calcium Level 9.6 mg/dL (8.5-10.1) Troponin I Quantitative < 0.017 ng/mL (0.000-0.055) Glucose (Fingerstick) 110 mg/dL (70-99) Laboratory Tests Test 08/30/18 16:50 08/30/18 20:40 08/30/18 22:00 08/30/18 22:40 White Blood Count 9.2 x10^3/uL (4.0-11.0) Red Blood Count 3.91 x10^6/uL (3.50-5.40) Hemoglobin 10.8 g/dL (12.0-15.5) Hematocrit 33.1 % (36.0-47.0) Mean Corpuscular Volume 85 fL (79-100) Mean Corpuscular Hemoglobin 28 pg (25-35) Mean Corpuscular Hemoglobin Concent 33 g/dL (31-37) Red Cell Distribution Width 16.2 % (11.5-14.5) Platelet Count 285 x10^3/uL (140-400) Neutrophils (%) (Auto) 80 % (31-73) Lymphocytes (%) (Auto) 14 % (24-48) Monocytes (%) (Auto) 5 % (0-9) Eosinophils (%) (Auto) 0 % (0-3) Basophils (%) (Auto) 1 % (0-3) Neutrophils # (Auto) 7.4 x10^3uL (1.8-7.7) Lymphocytes # (Auto) 1.3 x10^3/uL (1.0-4.8) Monocytes # (Auto) 0.5 x10^3/uL (0.0-1.1) Eosinophils # (Auto) 0.0 x10^3/uL (0.0-0.7) Basophils # (Auto) 0.1 x10^3/uL (0.0-0.2) Prothrombin Time 22.3 SEC (11.7-14.0) Prothromb Time International Ratio 2.0 (0.8-1.1) Sodium Level 136 mmol/L (136-145) Potassium Level 3.9 mmol/L (3.5-5.1) Chloride Level 96 mmol/L (98-107) Carbon Dioxide Level 31 mmol/L (21-32) Anion Gap 9 (6-14) Blood Urea Nitrogen 12 mg/dL (7-20) Creatinine 1.0 mg/dL (0.6-1.0) Estimated GFR (Cockcroft-Gault) 67.5 BUN/Creatinine Ratio 12 (6-20) Glucose Level 252 mg/dL (70-99) Calcium Level 9.8 mg/dL (8.5-10.1) Magnesium Level 1.8 mg/dL (1.8-2.4) Total Bilirubin 0.5 mg/dL (0.2-1.0) Aspartate Amino Transf (AST/SGOT) 16 U/L (15-37) Alanine Aminotransferase (ALT/SGPT) 23 U/L (14-59) Alkaline Phosphatase 100 U/L (46-116) Creatine Kinase 76 U/L (26-192) Creatine Kinase MB (Mass) 0.8 ng/mL (0.0-3.6) Creatine Kinase MB Relative Index 1.1 % (0-4) Troponin I Quantitative < 0.017 ng/mL (0.000-0.055) < 0.017 ng/mL (0.000-0.055) ZO-Eib-Y-Type Natriuretic Peptide 1650 pg/mL (0-124) Total Protein 8.3 g/dL (6.4-8.2) Albumin 3.3 g/dL (3.4-5.0) Albumin/Globulin Ratio 0.7 (1.0-1.7) Thyroid Stimulating Hormone (TSH) 0.795 uIU/mL (0.358-3.74) Glucose (Fingerstick) 90 mg/dL (70-99) Urine Collection Type Unknown Urine Color Yellow Urine Clarity Cloudy Urine pH 6.5 Urine Specific [place] 1.020 Urine Protein 30 mg/dL (NEG-TRACE) Urine Glucose (UA) 100 mg/dL (NEG) Urine Ketones (Stick) Negative mg/dL (NEG) Urine Blood Negative (NEG) Urine Nitrite Negative (NEG) Urine Bilirubin Small (NEG) Urine Urobilinogen Dipstick 2.0 mg/dL (0.2 mg/dL) Urine Leukocyte Esterase Small (NEG) Urine RBC Occ /HPF (0-2) Urine WBC 5-10 /HPF (0-4) Urine Squamous Epithelial Cells Many /LPF Urine Bacteria Few /HPF (0-FEW) Urine Mucus Slight /LPF Urine Opiates Screen Pos (NEG) Urine Methadone Screen Neg (NEG) Urine Barbiturates Neg (NEG) Urine Phencyclidine Screen Neg (NEG) Urine Amphetamine/Methamphetamine Neg (NEG) Urine Benzodiazepines Screen Neg (NEG) Urine Cocaine Screen Neg (NEG) Urine Cannabinoids Screen Neg (NEG) Urine Ethyl Alcohol Neg (NEG) Test 08/31/18 03:55 08/31/18 07:02 White Blood Count 7.3 x10^3/uL (4.0-11.0) Red Blood Count 3.70 x10^6/uL (3.50-5.40) Hemoglobin 10.3 g/dL (12.0-15.5) Hematocrit 31.3 % (36.0-47.0) Mean Corpuscular Volume 85 fL (79-100) Mean Corpuscular Hemoglobin 28 pg (25-35) Mean Corpuscular Hemoglobin Concent 33 g/dL (31-37) Red Cell Distribution Width 16.7 % (11.5-14.5) Platelet Count 268 x10^3/uL (140-400) Neutrophils (%) (Auto) 69 % (31-73) Lymphocytes (%) (Auto) 22 % (24-48) Monocytes (%) (Auto) 8 % (0-9) Eosinophils (%) (Auto) 1 % (0-3) Basophils (%) (Auto) 0 % (0-3) Neutrophils # (Auto) 5.0 x10^3uL (1.8-7.7) Lymphocytes # (Auto) 1.6 x10^3/uL (1.0-4.8) Monocytes # (Auto) 0.6 x10^3/uL (0.0-1.1) Eosinophils # (Auto) 0.0 x10^3/uL (0.0-0.7) Basophils # (Auto) 0.0 x10^3/uL (0.0-0.2) Prothrombin Time 23.1 SEC (11.7-14.0) Prothromb Time International Ratio 2.1 (0.8-1.1) Sodium Level 139 mmol/L (136-145) Potassium Level 3.9 mmol/L (3.5-5.1) Chloride Level 99 mmol/L (98-107) Carbon Dioxide Level 34 mmol/L (21-32) Anion Gap 6 (6-14) Blood Urea Nitrogen 17 mg/dL (7-20) Creatinine 0.9 mg/dL (0.6-1.0) Estimated GFR (Cockcroft-Gault) 76.3 Glucose Level 101 mg/dL (70-99) Calcium Level 9.6 mg/dL (8.5-10.1) Troponin I Quantitative < 0.017 ng/mL (0.000-0.055) Glucose (Fingerstick) 110 mg/dL (70-99) Images Images CXR - Findings suggests interstitial pulmonary edema or atypical/viral infectio n. VTE Prophylaxis Ordered VTE Prophylaxis Devices: Yes VTE Pharmacological Prophylaxi: Yes Assessment/Plan Assessment/Plan A/P: Chest pain - she does have a strong cardiac history, concerning for new EKG findings, will trend troponins overnight, this could be ACS. ASA, morphine. Consulted cardiology Shortness of breath - with her elevated BNP, interstitial edema and cardiomegaly on CXR I am concerned for CHF. Will order lasix IV and restart her home metolazone HTN - not initially well controlled, restart home medications, may need prn vasotec or hydralazine DM - cont her home levemir and mealtime scheduled plus sliding scale Acute on chronic diastolic heart failure: 2-D echo in February 2018 showed normal LV function with EF 50-55%. Continue gentle diuresis with Lasix. 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 Apparently she was just started on warfarin as well. Will request med records from [facility]. Her INR is 1.6 FEN - Cardiac carb consistent diet PPX - Warfarin FULL CODE Inpatient for what looks to be early CHF/pulmonary edema with possible ACS, she does need some diuresis VENKAT ALEJANDRO MD Aug 31, 2018 08:29
[2018-08-31] MEDS: GLIMEPIRIDE 2 MG TABLET. PO SCH (08:38)
[2018-08-31] MEDS: FAMOTIDINE 20 MG TABLET. PO SCH ×2 (08:38→21:46)
[2018-08-31] MEDS: METOPROLOL TART IMMED RELEASE 25 MG TABLET. PO SCH ×2 (08:38→21:47)
[2018-08-31] MEDS: LOSARTAN POTASSIUM 50 MG TABLET. PO SCH (08:39)
[2018-08-31] MEDS: FLUoxetine HCL 20 MG CAPSULE PO SCH (08:39)
[2018-08-31] MEDS: ASPIRIN ENTERIC COATED 81 MG TABLET.DR. PO SCH (08:39)
[2018-08-31] MEDS: clonazePAM 0.5 MG TABLET PO SCH ×3 (08:39→21:47)
[2018-08-31] MEDS: FUROSEMIDE 80 MG TABLET. PO SCH ×2 (08:41→14:00)
[2018-08-31] MEDS: INSULIN LISPRO 300 UNITS/3 ML INSULN.PEN. SQ SCH ×3 (08:47→18:21)
[2018-08-31] MEDS ORDERED: FAMOTIDINE 20 MG TABLET. PO SCH (09:00)
[2018-08-31] MEDS ORDERED: METOPROLOL TART IMMED RELEASE 25 MG TABLET. PO SCH (09:00)
[2018-08-31] MEDS ORDERED: clonazePAM 0.5 MG TABLET PO SCH (09:00)
--- NOTE | 2018-08-31 09:33 | PDOC2 ---
FAHAD,EMILY PAULINE 08/31/18 0933: CARDIAC CONSULT DATE OF CONSULT Date of Consult DATE: 08/31/18 TIME: 09:25 REASON FOR CONSULT Reason for Consult: Celine Cevallos APRN REFERRING PHYSICIAN Referring Physician: Chronic chest pain SOURCE Source: Chart review, Patient HISTORY OF PRESENT ILLNESS HISTORY OF PRESENT ILLNESS This is a 63 yo female, well know to our service from previous hospital admissions, who presented secondary to chest pain. Patient reports she woke up with sharp pain in her left chest on Friday. No associated dizziness, diaphoresis, palpitations, or nausea/vomiting. Worsened with deep breathing. Took ASA and nitro SL without an relief. Pain constant all day Friday. Persisted on Friday. Took another nitro x2 and ASA. Gave her SMITH, but did not improved pain. Had episode of nausea with vomiting x2 Friday. Pain persistent Friday so she decided to come into the ED for further evaluation and treatment. Pain improved overall. Left chest tender upon palpation. PAST MEDICAL HISTORY Past Medical History Cardiovascular: CAD, CHF, HTN, [place], Hyperlipidemia, Other (SSS) Pulmonary: COPD CENTRAL NERVOUS SYSTEM: Periperal neuropathy GI: GERD Heme/Onc: No pertinent hx Hepatobiliary: Cholelithiasis Psych: No pertinent hx Musculoskeletal: Osteoarthritis Rheumatologic: No pertinent hx Infectious disease: No pertinent hx Renal/: Chronic renal insuff Endocrine: Diabetes (2) Dermatology: No pertinent hx PAST SURGICAL HISTORY Past Surgical History Pacemaker ([facility]), Appendectomy, Cholecystectomy, Total knee replacement (left), Hysterectomy FAMILY HISTORY Family History: Diabetes, Heart Disease SOCIAL HISTORY Social History Smoke: quit ALCOHOL: none Drugs: None Lives: with family CURRENT MEDICATIONS CURRENT MEDICATIONS Current Medications Medications (Trade) Dose Ordered Sig/Susan Route PRN Reason Start Time Stop Time Status Last Admin Dose Admin Aspirin (Jahaira Aspirin) 325 mg 1X ONCE PO 08/30/18 16:45 08/30/18 16:46 DC 08/30/18 16:51 Ondansetron HCl (Zofran) 4 mg 1X ONCE IV 08/30/18 17:30 08/30/18 17:31 DC 08/30/18 17:28 Ketorolac Tromethamine (Toradol 30mg Vial) 30 mg 1X ONCE IV 08/30/18 17:30 08/30/18 17:31 DC 08/30/18 17:28 Albuterol/ Ipratropium (Duoneb) 3 ml 1X ONCE NEB 08/30/18 18:00 08/30/18 18:01 DC 08/30/18 17:36 Zolpidem Tartrate (Ambien) 5 mg PRN QHS PRN PO INSOMNIA 08/30/18 20:45 08/30/18 22:08 Warfarin Sodium (Coumadin) 3 mg 1X ONCE PO 08/30/18 21:30 08/30/18 21:31 DC 08/30/18 22:19 Atorvastatin Calcium (Lipitor) 20 mg QHS PO 08/30/18 21:00 08/30/18 22:07 Famotidine (Pepcid) 20 mg BID PO 08/30/18 21:00 08/31/18 08:38 Clonazepam (KlonoPIN) 0.5 mg TID PO 08/30/18 21:00 08/31/18 08:39 Metoprolol Tartrate (Lopressor) 25 mg BID PO 08/30/18 21:00 08/31/18 08:38 Acetaminophen/ Hydrocodone Bitart (Lortab 10/325) 2 tab PRN Q4HRS PRN PO SEVERE PAIN 08/30/18 21:00 08/31/18 01:38 DC 08/30/18 22:10 Warfarin Sodium (Coumadin Per Physician) 1 each PRN DAILY PRN MC SEE COMMENTS 08/30/18 21:30 08/31/18 00:59 Aspirin (Ecotrin) 81 mg DAILY PO 08/31/18 09:00 08/31/18 08:39 Fluoxetine HCl (PROzac) 20 mg DAILY PO 08/31/18 09:00 08/31/18 08:39 Furosemide (Lasix) 80 mg BID92 PO 08/31/18 09:00 08/31/18 08:41 Glimepiride (Amaryl) 2 mg DAILY PO 08/31/18 09:00 08/31/18 08:38 Oxycodone/ Acetaminophen (Percocet 10/325) 2 tab PRN Q4HRS PRN PO SEVERE PAIN 08/30/18 23:30 08/31/18 08:39 Insulin Human Lispro (HumaLOG) 20 units TIDWMEALS SQ 08/31/18 08:00 08/31/18 08:47 Losartan Potassium (Cozaar) 100 mg DAILY PO 08/31/18 09:00 08/31/18 08:39 ALLERGIES ALLERGIES: Coded Allergies: ibuprofen (Verified Adverse Reaction, Intermediate, Nausea and Vomiting, 12/02/17) ROS Review of System 14 point ROS conducted with pertinent positives noted above in HPI. PHYSICAL EXAM PHYSICAL EXAM General: Alert, Oriented X3, Cooperative, No acute distress HEENT: Atraumatic, Mucous membr. moist/pink Lungs: Normal air movement, CTA, left chest tenderness upon palpation Heart: Regular rate (paced), Normal S1, Normal S2, Other (2/6 systolic murmur to LLS border) Abdomen: Soft, No tenderness Extremities: No cyanosis, No edema Skin: No breakdown, No significant lesion Neuro: Normal speech, Sensation intact Psych/Mental Status: Mental status NL, Mood NL MUSCULOSKELETAL: Osteoarthritic changes both hands VITALS VITALS Vital Signs Date Time Temp Pulse Resp B/P (MAP) Pulse Ox O2 Delivery O2 Flow Rate FiO2 08/31/18 08:39 65 08/31/18 07:11 97.9 16 141/48 (79) 97 Room Air 97.9 08/31/18 05:15 2.0 LABS Lab: Laboratory Tests Test 08/30/18 16:50 08/30/18 20:40 08/30/18 22:00 08/30/18 22:40 White Blood Count 9.2 x10^3/uL (4.0-11.0) Red Blood Count 3.91 x10^6/uL (3.50-5.40) Hemoglobin 10.8 g/dL (12.0-15.5) Hematocrit 33.1 % (36.0-47.0) Mean Corpuscular Volume 85 fL (79-100) Mean Corpuscular Hemoglobin 28 pg (25-35) Mean Corpuscular Hemoglobin Concent 33 g/dL (31-37) Red Cell Distribution Width 16.2 % (11.5-14.5) Platelet Count 285 x10^3/uL (140-400) Neutrophils (%) (Auto) 80 % (31-73) Lymphocytes (%) (Auto) 14 % (24-48) Monocytes (%) (Auto) 5 % (0-9) Eosinophils (%) (Auto) 0 % (0-3) Basophils (%) (Auto) 1 % (0-3) Neutrophils # (Auto) 7.4 x10^3uL (1.8-7.7) Lymphocytes # (Auto) 1.3 x10^3/uL (1.0-4.8) Monocytes # (Auto) 0.5 x10^3/uL (0.0-1.1) Eosinophils # (Auto) 0.0 x10^3/uL (0.0-0.7) Basophils # (Auto) 0.1 x10^3/uL (0.0-0.2) Prothrombin Time 22.3 SEC (11.7-14.0) Prothromb Time International Ratio 2.0 (0.8-1.1) Sodium Level 136 mmol/L (136-145) Potassium Level 3.9 mmol/L (3.5-5.1) Chloride Level 96 mmol/L (98-107) Carbon Dioxide Level 31 mmol/L (21-32) Anion Gap 9 (6-14) Blood Urea Nitrogen 12 mg/dL (7-20) Creatinine 1.0 mg/dL (0.6-1.0) Estimated GFR (Cockcroft-Gault) 67.5 BUN/Creatinine Ratio 12 (6-20) Glucose Level 252 mg/dL (70-99) Calcium Level 9.8 mg/dL (8.5-10.1) Magnesium Level 1.8 mg/dL (1.8-2.4) Total Bilirubin 0.5 mg/dL (0.2-1.0) Aspartate Amino Transf (AST/SGOT) 16 U/L (15-37) Alanine Aminotransferase (ALT/SGPT) 23 U/L (14-59) Alkaline Phosphatase 100 U/L (46-116) Creatine Kinase 76 U/L (26-192) Creatine Kinase MB (Mass) 0.8 ng/mL (0.0-3.6) Creatine Kinase MB Relative Index 1.1 % (0-4) Troponin I Quantitative < 0.017 ng/mL (0.000-0.055) < 0.017 ng/mL (0.000-0.055) EX-Gef-Y-Type Natriuretic Peptide 1650 pg/mL (0-124) Total Protein 8.3 g/dL (6.4-8.2) Albumin 3.3 g/dL (3.4-5.0) Albumin/Globulin Ratio 0.7 (1.0-1.7) Thyroid Stimulating Hormone (TSH) 0.795 uIU/mL (0.358-3.74) Glucose (Fingerstick) 90 mg/dL (70-99) Urine Collection Type Unknown Urine Color Yellow Urine Clarity Cloudy Urine pH 6.5 Urine Specific [place] 1.020 Urine Protein 30 mg/dL (NEG-TRACE) Urine Glucose (UA) 100 mg/dL (NEG) Urine Ketones (Stick) Negative mg/dL (NEG) Urine Blood Negative (NEG) Urine Nitrite Negative (NEG) Urine Bilirubin Small (NEG) Urine Urobilinogen Dipstick 2.0 mg/dL (0.2 mg/dL) Urine Leukocyte Esterase Small (NEG) Urine RBC Occ /HPF (0-2) Urine WBC 5-10 /HPF (0-4) Urine Squamous Epithelial Cells Many /LPF Urine Bacteria Few /HPF (0-FEW) Urine Mucus Slight /LPF Urine Opiates Screen Pos (NEG) Urine Methadone Screen Neg (NEG) Urine Barbiturates Neg (NEG) Urine Phencyclidine Screen Neg (NEG) Urine Amphetamine/Methamphetamine Neg (NEG) Urine Benzodiazepines Screen Neg (NEG) Urine Cocaine Screen Neg (NEG) Urine Cannabinoids Screen Neg (NEG) Urine Ethyl Alcohol Neg (NEG) Test 08/31/18 03:55 08/31/18 07:02 White Blood Count 7.3 x10^3/uL (4.0-11.0) Red Blood Count 3.70 x10^6/uL (3.50-5.40) Hemoglobin 10.3 g/dL (12.0-15.5) Hematocrit 31.3 % (36.0-47.0) Mean Corpuscular Volume 85 fL (79-100) Mean Corpuscular Hemoglobin 28 pg (25-35) Mean Corpuscular Hemoglobin Concent 33 g/dL (31-37) Red Cell Distribution Width 16.7 % (11.5-14.5) Platelet Count 268 x10^3/uL (140-400) Neutrophils (%) (Auto) 69 % (31-73) Lymphocytes (%) (Auto) 22 % (24-48) Monocytes (%) (Auto) 8 % (0-9) Eosinophils (%) (Auto) 1 % (0-3) Basophils (%) (Auto) 0 % (0-3) Neutrophils # (Auto) 5.0 x10^3uL (1.8-7.7) Lymphocytes # (Auto) 1.6 x10^3/uL (1.0-4.8) Monocytes # (Auto) 0.6 x10^3/uL (0.0-1.1) Eosinophils # (Auto) 0.0 x10^3/uL (0.0-0.7) Basophils # (Auto) 0.0 x10^3/uL (0.0-0.2) Prothrombin Time 23.1 SEC (11.7-14.0) Prothromb Time International Ratio 2.1 (0.8-1.1) Sodium Level 139 mmol/L (136-145) Potassium Level 3.9 mmol/L (3.5-5.1) Chloride Level 99 mmol/L (98-107) Carbon Dioxide Level 34 mmol/L (21-32) Anion Gap 6 (6-14) Blood Urea Nitrogen 17 mg/dL (7-20) Creatinine 0.9 mg/dL (0.6-1.0) Estimated GFR (Cockcroft-Gault) 76.3 Glucose Level 101 mg/dL (70-99) Calcium Level 9.6 mg/dL (8.5-10.1) Troponin I Quantitative < 0.017 ng/mL (0.000-0.055) Glucose (Fingerstick) 110 mg/dL (70-99) ECHOCARDIOGRAM ECHOCARDIOGRAM <Conclusion> Technically difficult study. The left ventricle is normal size. Left ventricular systolic function appears intact. Ejection fraction of 50-55%. There is mild concentric left ventricular hypertrophy. The aortic valve is not well visualized but appears to be functioning normally by Doppler interrogation. There is no significant aortic valvular stenosis. Doppler and Color Flow revealed no significant aortic regurgitation. Doppler and Color Flow revealed trace mitral valve regurgitation. Doppler and Color Flow revealed trace tricuspid valve regurgitation. DATE: 03/11/18 1630 STRESS TEST STRESS TEST Conclusion 1. Myocardial viability study was obtained after injection of 3 mCi of thallium 101. 2. Images were obtained. After waiting for 4 hours an additional 1 mCi of thallium was injected and further images were obtained. 3. 24-hour images were obtained the next day. 4. Non viability is seen over the apex.The rRest of the myocardium is viable. DATE: 01/12/17 1206 HEART CATH HEART CATH FINDINGS 1. Hemodynamics: Left ventricular end-diastolic pressure 20 mmHg. No pullback gradient across the aortic valve. 2. Left ventriculography: Akinetic distal anterior wall and the entire apical wall with ejection fraction estimated at 40%. No significant mitral regurgitation was seen. 3. Coronary and bypass graft angiography: a. The left main coronary artery arose from the left sinus of Valsalva, gave rise to the left anterior descending and left circumflex arteries and did not show any significant stenosis. b. The left anterior descending artery did not show any significant stenosis. c. The left circumflex artery showed 40% stenosis involving the proximal segment of the obtuse marginal branch. d. The right coronary artery was a large and dominant vessel arising from the right sinus of Valsalva that did not show any significant stenosis. e. The saphenous vein graft to the obtuse marginal branch was widely patent. d. The left internal mammary artery graft to the left anterior descending artery was patent. Conclusion 1. 40% stenosis involving the obtuse marginal branch of left circumflex artery without any other significant stenoses. The left internal mammary artery graft to the left anterior descending artery and the saphenous vein graft to the obtuse marginal branch were patent. Of note, patient seems to have had CABG for thrombus in left main coronary artery and left anterior descending artery in the past. No lesions were noted because the thrombus resolved. 2. Akinetic distal anterior wall and the entire apical wall with ejection fraction estimated at 40%. Recommendations Medical Therapy DATE: 05/18/18 1225 ASSESSMENT/PLAN ASSESSMENT/PLAN 1. Chest pain, atypical. troponin series normal- AMI ruled out. EKG without significant acute changes. 2. Accelerated hypertension; now better controlled 3. Chronic diastolic HF; LVEF 50-55%. Clinically compensated 4. CAD: past CABG. Recent cardiac cath with patent grafts as noted above. 5. VIOLETTA/morbid obesity: CPAP broken uses O2 at hs. 6. Severe pulmonary HTN 7. CKD; stable 8. DM2/HLP 9. SSS s/p PPM ([facility]ishi) 10. anticoagulation with warfarin; INR 2.1 Recommendations Continue home Lasix therapy. Secondary prevention measures Resume BP meds No further cardiac workup warranted at this time. F/u with Dr. Pat next week as previously scheduled Thanks for consultation; please call with questions. MISBAH HUFFMAN MD 08/31/18 1004: CARDIAC CONSULT ASSESSMENT/PLAN ASSESSMENT/PLAN Patient seen and examined. Agree with STEAMBOAT INSPECTOR's assessment and plan. Chest pain with atypical features and reproducible to palpation. Myocardial infarction has been ruled out. Recent cardiac catheterization showed patent grafts without any lesions needing intervention. Blood pressure better controlled since admission. Continue current medical regimen and follow-up with primary corporate coordinator. Thank you for your consultation. GABRIELLA VÁSQUEZ APRN Aug 31, 2018 09:33 MISBAH HUFFMAN MD Aug 31, 2018 10:04
[2018-08-31 10:53] VITALS: BP 126/57
[2018-08-31] MEDS ORDERED: METO5TAB4 PO (12:24)
[2018-08-31] MEDS ORDERED: FUROSEMIDE 40 MG/4 ML VIAL. IVP ONE (12:30)
[2018-08-31] MEDS ORDERED: metOLazone 2.5 MG TABLET PO SCH (13:00)
[2018-08-31] MEDS: CAPSAICIN 0.025% TOPICAL CREAM 60GM TUBE. TP PRN ×2 (13:38→22:36)
--- NOTE | 2018-08-31 13:50 | NUR ---
SS following for discharge planning. SS reviewed pt chart. Pt is from home and has had several past admissions to the hospital. Pt has had previous home healthcare services in the past with [facility] and has PRN oxygen at home. SS will continue to follow for discharge planning.
[2018-08-31 15:00] VITALS: BP 109/55
[2018-08-31] MEDS ORDERED: WARFARIN 3 MG TABLET. PO ONE (16:32)
[2018-08-31 19:07] VITALS: BP 97/43
[2018-08-31] MEDS ORDERED: ZOLPIDEM 5 MG TABLET. PO SCH (21:00)
[2018-08-31] MEDS ORDERED: ATORVASTATIN CALCIUM 20 MG TABLET PO SCH (21:00)
[2018-08-31] MEDS: ATORVASTATIN CALCIUM 20 MG TABLET PO SCH (21:46)
[2018-08-31] MEDS: INSULIN GLARGINE 300 UNITS/3 ML INSULN.PEN. SQ SCH (21:54)
[2018-08-31] MEDS: ZOLPIDEM 5 MG TABLET. PO PRN (22:18)
[2018-08-31 22:38] VITALS: BP 107/43
[2018-09-01 02:05] VITALS: BP 116/53
[2018-09-01] MEDS: oxyCODONE/APAP 10/325 1 TAB TABLET PO PRN ×3 (04:25→12:43)
[2018-09-01 05:11] LABS: PROTHROMBIN TIME PATIENT 23.8 SEC (11.7-14.0)
[2018-09-01 05:24] LABS: CALCIUM 9.6 mg/dL (8.5-10.1); CREATININE 1.2 mg/dL (0.6-1.0); GFR 54.7; MAGNESIUM 2.1 mg/dL (1.8-2.4); POTASSIUM 3.9 mmol/L (3.5-5.1)
[2018-09-01 07:50] VITALS: BP 140/59
[2018-09-01] MEDS: INSULIN LISPRO 300 UNITS/3 ML INSULN.PEN. SQ SCH ×2 (08:00→12:38)
--- NOTE | 2018-09-01 08:14 | PDOC ---
PROGRESS NOTES Chief Complaint Chief Complaint A/P: Chest pain - she does have a strong cardiac history, concerning for new EKG findings, will trend troponins overnight, this could be ACS. ASA, morphine. Consulted cardiology Shortness of breath - with her elevated BNP, interstitial edema and cardiomegaly on CXR I am concerned for CHF. Will order lasix IV and restart her home metolazone HTN - not initially well controlled, restart home medications, may need prn vas otec or hydralazine DM - cont her home levemir and mealtime scheduled plus sliding scale Acute on chronic diastolic heart failure: 2-D echo in February 2018 showed normal LV function with EF 50-55%. Continue gentle diuresis with Lasix. 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 Apparently she was just started on warfarin as well. Will request med records from [facility]. Her INR is 1.6 FEN - Cardiac carb consistent diet PPX - Warfarin FULL CODE Inpatient for what looks to be early CHF/pulmonary edema with possible ACS History of Present Illness History of Present Illness 63 year old female with history of HTN, DM, chronic pain, and CAD (s/p stenting, CABG 2014 and PPM), COPD, SSS s/p PPM and recently started coumadin on 05/08/18, who presents to the ED today complaining of 8 out of 10 left sided sharp intermittent chest pain that has been going on since yesterday. Patient is also complaining of shortness of air on exertion and nausea. Patient denies anything specifically relieving her pain. She states she took an aspirin as well as nitroglycerin with no relief. Denies any fever, denies any coughing or congestion. She states she did not come yesterday because she is trying to "stretch her visits to the ED" because she comes frequently. She is smiling about this statement. She also states she is on oxycodone for her chronic pain but she ran out of the medications and left a voicemail at her physician's office on Friday. She does note she has had additional ankle swelling at home the past 3 days and had nausea so missed 3 doses of lasix and did have to take an additional dose 1x last week. Still takes metolazone MWF. For the past 3-4 days had increasing dyspnea on exertion and chest pain on exertion. Found with CXR consistent with cardiomegaly and concern for interstitial edema, BNP elevated EKG appears to have right axis deviation. Sees chemist internship at [facility], still on carvedilol 6.25mg and had metolazone 5mg q 48 hours added to her meds. She states she has not missed doses of her home meds, states she needs her 10mg ambien and 10-325mg oxycodone/apap continued while inpatient. She was seen by cardiology, improved after 2 days of IV diuresis. Advised to avoid cigarette smoke exposure. Vitals Vitals Vital Signs Date Time Temp Pulse Resp B/P (MAP) Pulse Ox O2 Delivery O2 Flow Rate FiO2 09/01/18 07:50 98.3 58 18 140/59 (86) 91 Room Air 98.3 09/01/18 02:05 2.0 Physical Exam General: Alert, Oriented X3, Cooperative, No acute distress Lungs: Clear, Crackles Abdomen: Normal bowel sounds, Soft, No tenderness, No hepatosplenomegaly, No masses Extremities: No clubbing, No cyanosis, Normal pulses, No tenderness/swelling, Other (2+ edema) Skin: No breakdown, No significant lesion, Other (Venous stasis dermatitis) Labs LABS Laboratory Tests Test 08/31/18 11:31 08/31/18 12:06 08/31/18 16:51 08/31/18 20:53 Glucose (Fingerstick) 74 mg/dL (70-99) 78 mg/dL (70-99) 124 mg/dL (70-99) 127 mg/dL (70-99) Test 09/01/18 04:36 09/01/18 07:35 Prothrombin Time 23.8 SEC (11.7-14.0) Prothromb Time International Ratio 2.2 (0.8-1.1) Sodium Level 138 mmol/L (136-145) Potassium Level 3.9 mmol/L (3.5-5.1) Chloride Level 97 mmol/L (98-107) Carbon Dioxide Level 35 mmol/L (21-32) Anion Gap 6 (6-14) Blood Urea Nitrogen 24 mg/dL (7-20) Creatinine 1.2 mg/dL (0.6-1.0) Estimated GFR (Cockcroft-Gault) 54.7 Glucose Level 128 mg/dL (70-99) Calcium Level 9.6 mg/dL (8.5-10.1) Magnesium Level 2.1 mg/dL (1.8-2.4) Glucose (Fingerstick) 111 mg/dL (70-99) Assessment and Plan Assessmemt and Plan Problems Medical Problems: (1) Nausea & vomiting Status: Acute (2) Shortness of breath Status: Acute Comment Review of Relevant I have reviewed the following items nolan (where applicable) has been applied. Labs Laboratory Tests Test 08/30/18 16:50 08/30/18 20:40 08/30/18 22:00 08/30/18 22:40 White Blood Count 9.2 x10^3/uL (4.0-11.0) Red Blood Count 3.91 x10^6/uL (3.50-5.40) Hemoglobin 10.8 g/dL (12.0-15.5) Hematocrit 33.1 % (36.0-47.0) Mean Corpuscular Volume 85 fL (79-100) Mean Corpuscular Hemoglobin 28 pg (25-35) Mean Corpuscular Hemoglobin Concent 33 g/dL (31-37) Red Cell Distribution Width 16.2 % (11.5-14.5) Platelet Count 285 x10^3/uL (140-400) Neutrophils (%) (Auto) 80 % (31-73) Lymphocytes (%) (Auto) 14 % (24-48) Monocytes (%) (Auto) 5 % (0-9) Eosinophils (%) (Auto) 0 % (0-3) Basophils (%) (Auto) 1 % (0-3) Neutrophils # (Auto) 7.4 x10^3uL (1.8-7.7) Lymphocytes # (Auto) 1.3 x10^3/uL (1.0-4.8) Monocytes # (Auto) 0.5 x10^3/uL (0.0-1.1) Eosinophils # (Auto) 0.0 x10^3/uL (0.0-0.7) Basophils # (Auto) 0.1 x10^3/uL (0.0-0.2) Prothrombin Time 22.3 SEC (11.7-14.0) Prothromb Time International Ratio 2.0 (0.8-1.1) Sodium Level 136 mmol/L (136-145) Potassium Level 3.9 mmol/L (3.5-5.1) Chloride Level 96 mmol/L (98-107) Carbon Dioxide Level 31 mmol/L (21-32) Anion Gap 9 (6-14) Blood Urea Nitrogen 12 mg/dL (7-20) Creatinine 1.0 mg/dL (0.6-1.0) Estimated GFR (Cockcroft-Gault) 67.5 BUN/Creatinine Ratio 12 (6-20) Glucose Level 252 mg/dL (70-99) Calcium Level 9.8 mg/dL (8.5-10.1) Magnesium Level 1.8 mg/dL (1.8-2.4) Total Bilirubin 0.5 mg/dL (0.2-1.0) Aspartate Amino Transf (AST/SGOT) 16 U/L (15-37) Alanine Aminotransferase (ALT/SGPT) 23 U/L (14-59) Alkaline Phosphatase 100 U/L (46-116) Creatine Kinase 76 U/L (26-192) Creatine Kinase MB (Mass) 0.8 ng/mL (0.0-3.6) Creatine Kinase MB Relative Index 1.1 % (0-4) Troponin I Quantitative < 0.017 ng/mL (0.000-0.055) < 0.017 ng/mL (0.000-0.055) FJ-Wbu-[id number]-Type Natriuretic Peptide 1650 pg/mL (0-124) Total Protein 8.3 g/dL (6.4-8.2) Albumin 3.3 g/dL (3.4-5.0) Albumin/Globulin Ratio 0.7 (1.0-1.7) Thyroid Stimulating Hormone (TSH) 0.795 uIU/mL (0.358-3.74) Glucose (Fingerstick) 90 mg/dL (70-99) Urine Collection Type Unknown Urine Color Yellow Urine Clarity Cloudy Urine pH 6.5 Urine Specific [place] 1.020 Urine Protein 30 mg/dL (NEG-TRACE) Urine Glucose (UA) 100 mg/dL (NEG) Urine Ketones (Stick) Negative mg/dL (NEG) Urine Blood Negative (NEG) Urine Nitrite Negative (NEG) Urine Bilirubin Small (NEG) Urine Urobilinogen Dipstick 2.0 mg/dL (0.2 mg/dL) Urine Leukocyte Esterase Small (NEG) Urine RBC Occ /HPF (0-2) Urine WBC 5-10 /HPF (0-4) Urine Squamous Epithelial Cells Many /LPF Urine Bacteria Few /HPF (0-FEW) Urine Mucus Slight /LPF Urine Opiates Screen Pos (NEG) Urine Methadone Screen Neg (NEG) Urine Barbiturates Neg (NEG) Urine Phencyclidine Screen Neg (NEG) Urine Amphetamine/Methamphetamine Neg (NEG) Urine Benzodiazepines Screen Neg (NEG) Urine Cocaine Screen Neg (NEG) Urine Cannabinoids Screen Neg (NEG) Urine Ethyl Alcohol Neg (NEG) Test 08/31/18 03:55 08/31/18 07:02 08/31/18 11:31 08/31/18 12:06 White Blood Count 7.3 x10^3/uL (4.0-11.0) Red Blood Count 3.70 x10^6/uL (3.50-5.40) Hemoglobin 10.3 g/dL (12.0-15.5) Hematocrit 31.3 % (36.0-47.0) Mean Corpuscular Volume 85 fL (79-100) Mean Corpuscular Hemoglobin 28 pg (25-35) Mean Corpuscular Hemoglobin Concent 33 g/dL (31-37) Red Cell Distribution Width 16.7 % (11.5-14.5) Platelet Count 268 x10^3/uL (140-400) Neutrophils (%) (Auto) 69 % (31-73) Lymphocytes (%) (Auto) 22 % (24-48) Monocytes (%) (Auto) 8 % (0-9) Eosinophils (%) (Auto) 1 % (0-3) Basophils (%) (Auto) 0 % (0-3) Neutrophils # (Auto) 5.0 x10^3uL (1.8-7.7) Lymphocytes # (Auto) 1.6 x10^3/uL (1.0-4.8) Monocytes # (Auto) 0.6 x10^3/uL (0.0-1.1) Eosinophils # (Auto) 0.0 x10^3/uL (0.0-0.7) Basophils # (Auto) 0.0 x10^3/uL (0.0-0.2) Prothrombin Time 23.1 SEC (11.7-14.0) Prothromb Time International Ratio 2.1 (0.8-1.1) Sodium Level 139 mmol/L (136-145) Potassium Level 3.9 mmol/L (3.5-5.1) Chloride Level 99 mmol/L (98-107) Carbon Dioxide Level 34 mmol/L (21-32) Anion Gap 6 (6-14) Blood Urea Nitrogen 17 mg/dL (7-20) Creatinine 0.9 mg/dL (0.6-1.0) Estimated GFR (Cockcroft-Gault) 76.3 Glucose Level 101 mg/dL (70-99) Calcium Level 9.6 mg/dL (8.5-10.1) Troponin I Quantitative < 0.017 ng/mL (0.000-0.055) Glucose (Fingerstick) 110 mg/dL (70-99) 74 mg/dL (70-99) 78 mg/dL (70-99) Test 08/31/18 16:51 08/31/18 20:53 09/01/18 04:36 09/01/18 07:35 Glucose (Fingerstick) 124 mg/dL (70-99) 127 mg/dL (70-99) 111 mg/dL (70-99) Prothrombin Time 23.8 SEC (11.7-14.0) Prothromb Time International Ratio 2.2 (0.8-1.1) Sodium Level 138 mmol/L (136-145) Potassium Level 3.9 mmol/L (3.5-5.1) Chloride Level 97 mmol/L (98-107) Carbon Dioxide Level 35 mmol/L (21-32) Anion Gap 6 (6-14) Blood Urea Nitrogen 24 mg/dL (7-20) Creatinine 1.2 mg/dL (0.6-1.0) Estimated GFR (Cockcroft-Gault) 54.7 Glucose Level 128 mg/dL (70-99) Calcium Level 9.6 mg/dL (8.5-10.1) Magnesium Level 2.1 mg/dL (1.8-2.4) Laboratory Tests Test 08/31/18 11:31 08/31/18 12:06 08/31/18 16:51 08/31/18 20:53 Glucose (Fingerstick) 74 mg/dL (70-99) 78 mg/dL (70-99) 124 mg/dL (70-99) 127 mg/dL (70-99) Test 09/01/18 04:36 09/01/18 07:35 Prothrombin Time 23.8 SEC (11.7-14.0) Prothromb Time International Ratio 2.2 (0.8-1.1) Sodium Level 138 mmol/L (136-145) Potassium Level 3.9 mmol/L (3.5-5.1) Chloride Level 97 mmol/L (98-107) Carbon Dioxide Level 35 mmol/L (21-32) Anion Gap 6 (6-14) Blood Urea Nitrogen 24 mg/dL (7-20) Creatinine 1.2 mg/dL (0.6-1.0) Estimated GFR (Cockcroft-Gault) 54.7 Glucose Level 128 mg/dL (70-99) Calcium Level 9.6 mg/dL (8.5-10.1) Magnesium Level 2.1 mg/dL (1.8-2.4) Glucose (Fingerstick) 111 mg/dL (70-99) Medications Current Medications Aspirin (Jahaira Aspirin) 325 mg 1X ONCE PO Last administered on 08/30/18at 16:51; Start 08/30/18 at 16:45; Stop 08/30/18 at 16:46; Status DC Ondansetron HCl (Zofran) 4 mg 1X ONCE IV Last administered on 08/30/18at 17:28; Start 08/30/18 at 17:30; Stop 08/30/18 at 17:31; Status DC Ketorolac Tromethamine (Toradol 30mg Vial) 30 mg 1X ONCE IV Last administered on 08/30/18at 17:28; Start 08/30/18 at 17:30; Stop 08/30/18 at 17:31; Status DC Clonidine HCl (Catapres) 0.2 mg 1X ONCE PO ; Start 08/30/18 at 17:30; Stop 08/30/18 at 17:30; Status DC Albuterol/ Ipratropium (Duoneb) 3 ml 1X ONCE NEB Last administered on 08/30/18at 17:36; Start 08/30/18 at 18:00; Stop 08/30/18 at 18:01; Status DC Ondansetron HCl (Zofran) 4 mg PRN Q8HRS PRN IV NAUSEA/VOMITING; Start 08/30/18 at 19:00; Stop 09/01/18 at 18:58 Morphine Sulfate (Morphine Sulfate) 4 mg PRN Q2HR PRN IV PAIN; Start 08/30/18 at 19:00; Stop 08/31/18 at 18:59; Status DC Acetaminophen (Tylenol) 650 mg PRN Q4HRS PRN PO FEVER; Start 08/30/18 at 19:00; Stop 09/01/18 at 18:58 Nitroglycerin (Nitrostat) 0.4 mg PRN Q5MIN PRN SL CHEST PAIN; Start 08/30/18 at 19:00; Stop 08/30/18 at 23:42; Status DC Zolpidem Tartrate (Ambien) 5 mg PRN QHS PRN PO INSOMNIA Last administered on 08/31/18at 22:18; Start 08/30/18 at 20:45 Warfarin Sodium (Coumadin) 3 mg 1X ONCE PO Last administered on 08/30/18 22:19; Start 08/30/18 at 21:30; Stop 08/30/18 at 21:31; Status DC Atorvastatin Calcium (Lipitor) 20 mg QHS PO Last administered on 08/31/18at 21:46; Start 08/30/18 at 21:00 Famotidine (Pepcid) 20 mg BID PO Last administered on 08/31/18 21:46; Start 08/30/18 at 21:00 Clonazepam (KlonoPIN) 0.5 mg TID PO Last administered on 08/31/18 21:47; Start 08/30/18 at 21:00 Metoprolol Tartrate (Lopressor) 25 mg BID PO Last administered on 08/31/18 21:47; Start 08/30/18 at 21:00 Zolpidem Tartrate (Ambien) 5 mg HS PRN PO INSOMNIA; Start 08/30/18 at 20:45; Status UNV Acetaminophen/ Hydrocodone Bitart (Lortab 10/325) 2 tab PRN Q4HRS PRN PO SEVERE PAIN Last administered on 08/30/18at 22:10; Start 08/30/18 at 21:00; Stop 08/31/18 at 01:38; Status DC Warfarin Sodium (Coumadin Per Physician) 1 each PRN DAILY PRN MC SEE COMMENTS Last administered on 08/31/18at 15:45; Start 08/30/18 at 21:30; Stop 08/31/18 at 16:34; Status DC Albuterol Sulfate (Ventolin Neb Soln) 5 mg PRN Q6HRS PRN INH SHORTNESS OF BREATH Last administered on 08/31/18at 12:08; Start 08/30/18 at 23:30 Aspirin (Ecotrin) 81 mg DAILY PO Last administered on 08/31/18at 08:39; Start 08/31/18 at 09:00 Atorvastatin Calcium (Lipitor) 20 mg HS PO ; Start 08/31/18 at 21:00; Status UNV Clonazepam (KlonoPIN) 0.5 mg TID PO ; Start 08/31/18 at 09:00; Status UNV Famotidine (Pepcid) 20 mg BID PO ; Start 08/31/18 at 09:00; Status UNV Fluoxetine HCl (PROzac) 20 mg DAILY PO Last administered on 08/31/18at 08:39; Start 08/31/18 at 09:00 Furosemide (Lasix) 80 mg BID92 PO Last administered on 08/31/18at 08:41; Start 08/31/18 at 09:00 Glimepiride (Amaryl) 2 mg DAILY PO Last administered on 08/31/18at 08:38; Start 08/31/18 at 09:00 Metoprolol Tartrate (Lopressor) 25 mg BID PO ; Start 08/31/18 at 09:00; Status UNV Nitroglycerin (Nitrostat) 0.4 mg PRN Q5MIN PRN SL CHEST PAIN; Start 08/30/18 at 23:30 Oxycodone/ Acetaminophen (Percocet 10/325) 2 tab PRN Q4HRS PRN PO SEVERE PAIN Last administered on 09/01/18at 04:25; Start 08/30/18 at 23:30 Zolpidem Tartrate (Ambien) 5 mg QHS PO ; Start 08/31/18 at 21:00; Status UNV Non-Formulary Medication (Albuterol Sulfate (Albuterol Sulfate Conc Neb Soln)) 5 mg PRN PRN NEB WHEEZING; Start 08/30/18 at 23:30; Status UNV Capsaicin (Zostrix) 1 tre PRN TID PRN TP TOPICAL PAIN Last administered on 08/31/18at 22:36; Start 08/31/18 at 00:00 Insulin Human Lispro (HumaLOG) 20 units TIDWMEALS SQ Last administered on 08/31/18at 18:21; Start 08/31/18 at 08:00 Losartan Potassium (Cozaar) 100 mg DAILY PO Last administered on 08/31/18at 08:39; Start 08/31/18 at 09:00 Ondansetron HCl (Zofran Odt) 4 mg PRN Q8HRS PRN PO NAUSEA/VOMITING 1ST CHOICE; Start 08/30/18 at 23:45 Insulin Glargine (Lantus) 32 units BID SQ Last administered on 08/31/18at 21:54; Start 08/31/18 at 21:00 Dextrose (Dextrose 50%-Water Syringe) 12.5 gm PRN Q15MIN PRN IV SEE COMMENTS; Start 08/31/18 at 01:15 Furosemide (Lasix) 40 mg 1X ONCE IVP Last administered on 08/31/18at 13:20; Start 08/31/18 at 12:30; Stop 08/31/18 at 12:31; Status DC Metolazone (Zaroxolyn) 5 mg MoWeFr PO Last administered on 08/31/18at 13:20; Start 08/31/18 at 13:00 Warfarin Sodium (Coumadin) 3 mg 1X WARF ONCE PO Last administered on 08/31/18at 18:11; Start 08/31/18 at 16:32; Stop 08/31/18 at 16:33; Status DC Warfarin Sodium (Coumadin Per Pharmacy) 1 each PRN DAILY PRN MC SEE COMMENTS; Start 08/31/18 at 16:45 Active Scripts Active Ondansetron Odt (Ondansetron) 4 Mg Tab.rapdis 1 Tab PO PRN Q6-8HRS Zofran (Ondansetron Hcl) 4 Mg Tablet 1 Tab PO PRN Q6-8HRS Proair Hfa Inhaler (Albuterol Sulfate) 8.5 Gm Hfa.aer.ad 1 Puff INH PRN Q6HRS PRN Percocet 10-325 Mg Tablet (Oxycodone/Acetaminophen) 1 Each Tablet 2 Tab PO PRN Q4-6HRS PRN MDD 1 Amaryl (Glimepiride) 2 Mg Tablet 2 Mg PO DAILY 30 Days Reported Metolazone 5 Mg Tablet 5 Mg PO MOWEFR Metoprolol Tartrate 25 Mg Tablet 25 Mg PO BID Novolog (Insulin Aspart) 100 Unit/1 Ml Cartridge 20 Unit SQ TIDWMEALS Levemir (Insulin Detemir) 100 Unit/1 Ml Vial 32 Unit SQ BID PRN Capsaicin 60 Gm Cream..g. 60 Gm TP PRN TID Calcium 500 + Vit D 200 Caplet (Calcium Carbonate/Vitamin D3) 1 Each Tablet 1 Each PO DAILY Zolpidem Tartrate 5 Mg Tablet 5 Mg PO QHS Clonazepam 0.5 Mg Tablet 0.5 Mg PO TID Fluoxetine Hcl 20 Mg Capsule 1 Cap PO DAILY Famotidine 20 Mg Tablet 20 Mg PO BID Losartan Potassium 100 Mg Tablet 100 Mg PO DAILY Furosemide 80 Mg Tablet 80 Mg PO BID Albuterol Sulfate Conc Neb Soln (Albuterol Sulfate) 2.5 Mg/0.5 Ml Vial.neb 5 Mg NEB PRN PRN Ferrous Sulfate 325 Mg Tablet 1 Tab PO DAILY NITROGLYCERIN SubLingual (Nitroglycerin) 0.4 Mg Tab.subl 0.4 Mg SL PRN Q5MIN PRN Atorvastatin Calcium 20 Mg Tablet 20 Mg PO HS Aspir 81 (Aspirin) 81 Mg Tablet. 1 Tab PO DAILY Vitals/I & O Vital Sign - Last 24 Hours 08/31/18 08/31/18 08/31/18 08/31/18 08:38 08:39 10:53 12:12 Temp 98.0 98.0 Pulse 60 65 63 Resp 20 B/P (MAP) 126/57 (80) Pulse Ox 90 96 O2 Delivery Room Air Nasal Cannula O2 Flow Rate 2.0 08/31/18 08/31/18 08/31/18 08/31/18 15:00 19:07 19:10 19:49 Temp 97.8 97.4 97.8 97.4 Pulse 60 62 Resp 20 20 B/P (MAP) 109/55 (73) 97/43 (61) Pulse Ox 93 97 O2 Delivery Room Air Nasal Cannula Room Air O2 Flow Rate 2.0 3.0 08/31/18 08/31/18 08/31/18 08/31/18 21:47 22:20 22:38 23:20 Temp 97.9 97.9 Pulse 62 60 Resp 18 18 B/P (MAP) 102/62 107/43 (64) Pulse Ox 96 98 98 O2 Delivery Nasal Cannula Room Air O2 Flow Rate 2.0 2.0 09/01/18 09/01/18 09/01/18 02:05 04:25 07:50 Temp 97.2 98.3 97.2 98.3 Pulse 60 58 Resp 18 18 B/P (MAP) 116/53 (74) 140/59 (86) Pulse Ox 97 96 91 O2 Delivery Nasal Cannula Room Air Room Air O2 Flow Rate 2.0 Intake and Output 08/31/18 08/31/18 09/01/18 14:59 22:59 06:59 Intake Total 240 ml 1040 ml Output Total 700 ml Balance 240 ml -700 ml 1040 ml VENKAT ALEJANDRO MD Sep 01, 2018 08:14
[2018-09-01] MEDS: LOSARTAN POTASSIUM 50 MG TABLET. PO SCH (08:26)
[2018-09-01] MEDS: FUROSEMIDE 80 MG TABLET. PO SCH (08:26)
[2018-09-01] MEDS: FAMOTIDINE 20 MG TABLET. PO SCH (08:26)
[2018-09-01] MEDS: FLUoxetine HCL 20 MG CAPSULE PO SCH (08:26)
[2018-09-01] MEDS: ASPIRIN ENTERIC COATED 81 MG TABLET.DR. PO SCH (08:26)
[2018-09-01] MEDS: GLIMEPIRIDE 2 MG TABLET. PO SCH (08:26)
[2018-09-01] MEDS: METOPROLOL TART IMMED RELEASE 25 MG TABLET. PO SCH (08:26)
[2018-09-01] MEDS: clonazePAM 0.5 MG TABLET PO SCH (08:27)
[2018-09-01] MEDS: CAPSAICIN 0.025% TOPICAL CREAM 60GM TUBE. TP PRN (08:30)
[2018-09-01] MEDS: INSULIN GLARGINE 300 UNITS/3 ML INSULN.PEN. SQ SCH (08:35)
[2018-09-01 11:00] VITALS: BP 97/59
--- NOTE | 2018-09-01 11:53 | SNU/HH DC ---
DISCHARGE WITH HOME HEALTH DISCHARGE INFORMATION: Discharge Date: Sep 01, 2018 Final Diagnosis: Problems Medical Problems: (1) Nausea & vomiting Status: Acute (2) Shortness of breath Status: Acute Condition on Discharge: Stable CODE STATUS: Code Status: Full HOME HEALTH: Face to Face: I certify this patient is under my care and that I, or a nurse practitioner or physician's training assistant working with me, had a face to face encounter that meets the physician face to face encounter requirements with this patient on 09/01/2018. Medical Complications: CHF RN For Eval/Treatment: Yes Physical Therapy For: Evalulation/Treatment Occupational Therapy For: Evaluation/Treatment Home Health Aide For: Self-care Pt Meets Homebound Status: Unsteady balance w/ amb,, Fatigue w/ amb., Limited distance walking POST DISCHARGE ORDERS: Activity Instructions for Disc: Activity as tolerated Weight Bearing Status after Di: No restrictions DIET AFTER DISCHARGE: Cardiac Wound/Incision Care: Other, see below CHECKS AFTER DISCHARGE: Checks after discharge: Check blood press - daily, Check blood sugar, ac/hs, Check your Temp as needed, Weigh Yourself Daily FOLLOW-UP: Follow up with: Cardiology Follow Up With: Pulmonology Warfarin Follow UP: Goal INR 2-3 TREATMENT/EQUIPMENT ORDERS: Adaptive Equipment Issued: None Discharge Respiratory Equipmen: Oxygen CERTIFICATION STATEMENT: Certification Statement: Certification Statement: Based on the above finding, I certify that this patient is confined to the home and needs intermittent prison care, physical therapy and/or speech therapy, or continues to need occupational therapy.~ This patient is under my care, and I have initiated the establishment of the plan of care.~ This patient will be followed by myself or a community physician who will periodically review the plan of care. Home Meds Active Scripts Warfarin Sodium (COUMADIN) 10 Mg Tablet, 1 EACH MC PRN DAILY PRN for SEE COMMENTS for 30 Days, #30 TAB Prov:VENKAT ALEJANDRO MD 09/01/18 Ondansetron (ONDANSETRON ODT) 4 Mg Tab.rapdis, 1 TAB PO PRN Q6-8HRS, #16 TAB Prov:DESMOND CARSON APRN 08/13/18 Ondansetron Hcl (ZOFRAN) 4 Mg Tablet, 1 TAB PO PRN Q6-8HRS for nausea, #12 TAB Prov:JO-ANN BLOUNT MD 07/12/18 Albuterol Sulfate (PROAIR HFA INHALER) 8.5 Gm Hfa.aer.ad, 1 PUFF INH PRN Q6HRS PRN for SHORTNESS OF BREATH, #1 INHALER 0 Refills Prov:MILLER ORTIZ MD 06/21/18 Oxycodone/Apap 10-325 (PERCOCET 10-325 MG TABLET ) 1 Each Tablet, 2 TAB PO PRN Q4-6HRS PRN for PAIN MDD 1, #20 TAB 0 Refills Prov:CATHIE KNIGHT MD 05/19/18 Glimepiride (AMARYL) 2 Mg Tablet, 2 MG PO DAILY for 30 Days, #30 TAB Prov:RADHA PIERRE MD 07/04/17 Reported Medications Metolazone (METOLAZONE) 5 Mg Tablet, 5 MG PO MoWeFr for CHF, #30 TAB 0 Refills 08/31/18 Metoprolol Tartrate (METOPROLOL TARTRATE) 25 Mg Tablet, 25 MG PO BID for FOR HYPERTENSION, #60 TAB 0 Refills 08/30/18 Insulin Aspart (NOVOLOG) 100 Unit/1 Ml Cartridge, 20 UNIT SQ TIDWMEALS for DIABETES, EACH 08/30/18 Insulin Detemir (LEVEMIR) 100 Unit/1 Ml Vial, 32 UNIT SQ BID PRN for DIABETES, VIAL 08/30/18 Capsaicin (CAPSAICIN) 60 Gm Cream..g., 60 GM TP PRN TID for , EACH 07/14/18 Calcium Carbonate/Vitamin D3 (CALCIUM 500 + VIT D 200 CAPLET) 1 Each Tablet, 1 EACH PO DAILY for supplement, TAB 05/16/18 Zolpidem Tartrate (ZOLPIDEM TARTRATE) 5 Mg Tablet, 5 MG PO QHS for insomnia, TAB 0 Refills 05/16/18 Clonazepam (CLONAZEPAM) 0.5 Mg Tablet, 0.5 MG PO TID for anti-anxiety, TAB 05/16/18 Fluoxetine Hcl (FLUOXETINE HCL) 20 Mg Capsule, 1 CAP PO DAILY for anti- depressent, #90 CAP 1 Refill 05/16/18 Famotidine (FAMOTIDINE) 20 Mg Tablet, 20 MG PO BID for stomach acid, TAB 05/16/18 Losartan Potassium (LOSARTAN POTASSIUM) 100 Mg Tablet, 100 MG PO DAILY for HYPERTENSION, TAB 03/13/18 Furosemide (FUROSEMIDE) 80 Mg Tablet, 80 MG PO BID for heart, TAB 10/09/17 Albuterol Sulfate (ALBUTEROL SULFATE CONC NEB SOLN) 2.5 Mg/0.5 Ml Vial.neb, 5 MG NEB PRN PRN for WHEEZING, EACH 0 Refills 10/07/17 Ferrous Sulfate (FERROUS SULFATE) 325 Mg Tablet, 1 TAB PO DAILY, #30 TAB 3 Refills 11/01/16 Nitroglycerin (NITROGLYCERIN SubLingual) 0.4 Mg Tab.subl, 0.4 MG SL PRN Q5MIN PRN for CHEST PAIN, BOTTLE 11/01/16 Atorvastatin Calcium (ATORVASTATIN CALCIUM) 20 Mg Tablet, 20 MG PO HS for FOR CHOLESTEROL, #30 TAB 0 Refills 10/28/16 Aspirin (ASPIR 81) 81 Mg Tablet.dr, 1 TAB PO DAILY, #30 TAB 5 Refills 10/28/16 Discontinued Reported Medications Warfarin Sodium (WARFARIN SODIUM) 5 Mg Tablet, 5 MG PO DAILY for blood thinner, #30 TAB 07/06/18 Amlodipine Besylate (AMLODIPINE BESYLATE) 10 Mg Tablet, 10 MG PO DAILY for htn, TAB 05/16/18 VENKAT ALEJANDRO MD Sep 01, 2018 11:53
--- NOTE | 2018-09-01 11:56 | PDOC3 ---
Discharge Summary Visit Information Date of Admission: Aug 30, 2018 Date of Discharge: Sep 01, 2018 Admitting Diagnosis: Chest pain, acute chf exacerbation Final Diagnosis Problems Medical Problems: (1) Nausea & vomiting Status: Acute (2) Shortness of breath Status: Acute Brief Hospital Course Allergies Allergies Coded Allergies Type Severity Reaction Last Updated Verified ibuprofen Adverse Reaction Intermediate Nausea and Vomiting 12/02/17 Yes Vital Signs Vital Signs Date Time Temp Pulse Resp B/P (MAP) Pulse Ox O2 Delivery O2 Flow Rate FiO2 09/01/18 11:00 98.5 61 18 97/59 (72) 97 Room Air 98.5 09/01/18 02:05 2.0 Lab Results Laboratory Tests Test 08/30/18 16:50 08/30/18 20:40 08/30/18 22:00 08/30/18 22:40 White Blood Count 9.2 x10^3/uL (4.0-11.0) Red Blood Count 3.91 x10^6/uL (3.50-5.40) Hemoglobin 10.8 g/dL (12.0-15.5) Hematocrit 33.1 % (36.0-47.0) Mean Corpuscular Volume 85 fL (79-100) Mean Corpuscular Hemoglobin 28 pg (25-35) Mean Corpuscular Hemoglobin Concent 33 g/dL (31-37) Red Cell Distribution Width 16.2 % (11.5-14.5) Platelet Count 285 x10^3/uL (140-400) Neutrophils (%) (Auto) 80 % (31-73) Lymphocytes (%) (Auto) 14 % (24-48) Monocytes (%) (Auto) 5 % (0-9) Eosinophils (%) (Auto) 0 % (0-3) Basophils (%) (Auto) 1 % (0-3) Neutrophils # (Auto) 7.4 x10^3uL (1.8-7.7) Lymphocytes # (Auto) 1.3 x10^3/uL (1.0-4.8) Monocytes # (Auto) 0.5 x10^3/uL (0.0-1.1) Eosinophils # (Auto) 0.0 x10^3/uL (0.0-0.7) Basophils # (Auto) 0.1 x10^3/uL (0.0-0.2) Prothrombin Time 22.3 SEC (11.7-14.0) Prothromb Time International Ratio 2.0 (0.8-1.1) Sodium Level 136 mmol/L (136-145) Potassium Level 3.9 mmol/L (3.5-5.1) Chloride Level 96 mmol/L (98-107) Carbon Dioxide Level 31 mmol/L (21-32) Anion Gap 9 (6-14) Blood Urea Nitrogen 12 mg/dL (7-20) Creatinine 1.0 mg/dL (0.6-1.0) Estimated GFR (Cockcroft-Gault) 67.5 BUN/Creatinine Ratio 12 (6-20) Glucose Level 252 mg/dL (70-99) Calcium Level 9.8 mg/dL (8.5-10.1) Magnesium Level 1.8 mg/dL (1.8-2.4) Total Bilirubin 0.5 mg/dL (0.2-1.0) Aspartate Amino Transf (AST/SGOT) 16 U/L (15-37) Alanine Aminotransferase (ALT/SGPT) 23 U/L (14-59) Alkaline Phosphatase 100 U/L (46-116) Creatine Kinase 76 U/L (26-192) Creatine Kinase MB (Mass) 0.8 ng/mL (0.0-3.6) Creatine Kinase MB Relative Index 1.1 % (0-4) Troponin I Quantitative < 0.017 ng/mL (0.000-0.055) < 0.017 ng/mL (0.000-0.055) WD-Jlv-H-Type Natriuretic Peptide 1650 pg/mL (0-124) Total Protein 8.3 g/dL (6.4-8.2) Albumin 3.3 g/dL (3.4-5.0) Albumin/Globulin Ratio 0.7 (1.0-1.7) Thyroid Stimulating Hormone (TSH) 0.795 uIU/mL (0.358-3.74) Glucose (Fingerstick) 90 mg/dL (70-99) Urine Collection Type Unknown Urine Color Yellow Urine Clarity Cloudy Urine pH 6.5 Urine Specific [place] 1.020 Urine Protein 30 mg/dL (NEG-TRACE) Urine Glucose (UA) 100 mg/dL (NEG) Urine Ketones (Stick) Negative mg/dL (NEG) Urine Blood Negative (NEG) Urine Nitrite Negative (NEG) Urine Bilirubin Small (NEG) Urine Urobilinogen Dipstick 2.0 mg/dL (0.2 mg/dL) Urine Leukocyte Esterase Small (NEG) Urine RBC Occ /HPF (0-2) Urine WBC 5-10 /HPF (0-4) Urine Squamous Epithelial Cells Many /LPF Urine Bacteria Few /HPF (0-FEW) Urine Mucus Slight /LPF Urine Opiates Screen Pos (NEG) Urine Methadone Screen Neg (NEG) Urine Barbiturates Neg (NEG) Urine Phencyclidine Screen Neg (NEG) Urine Amphetamine/Methamphetamine Neg (NEG) Urine Benzodiazepines Screen Neg (NEG) Urine Cocaine Screen Neg (NEG) Urine Cannabinoids Screen Neg (NEG) Urine Ethyl Alcohol Neg (NEG) Test 08/31/18 03:55 08/31/18 07:02 08/31/18 11:31 08/31/18 12:06 White Blood Count 7.3 x10^3/uL (4.0-11.0) Red Blood Count 3.70 x10^6/uL (3.50-5.40) Hemoglobin 10.3 g/dL (12.0-15.5) Hematocrit 31.3 % (36.0-47.0) Mean Corpuscular Volume 85 fL (79-100) Mean Corpuscular Hemoglobin 28 pg (25-35) Mean Corpuscular Hemoglobin Concent 33 g/dL (31-37) Red Cell Distribution Width 16.7 % (11.5-14.5) Platelet Count 268 x10^3/uL (140-400) Neutrophils (%) (Auto) 69 % (31-73) Lymphocytes (%) (Auto) 22 % (24-48) Monocytes (%) (Auto) 8 % (0-9) Eosinophils (%) (Auto) 1 % (0-3) Basophils (%) (Auto) 0 % (0-3) Neutrophils # (Auto) 5.0 x10^3uL (1.8-7.7) Lymphocytes # (Auto) 1.6 x10^3/uL (1.0-4.8) Monocytes # (Auto) 0.6 x10^3/uL (0.0-1.1) Eosinophils # (Auto) 0.0 x10^3/uL (0.0-0.7) Basophils # (Auto) 0.0 x10^3/uL (0.0-0.2) Prothrombin Time 23.1 SEC (11.7-14.0) Prothromb Time International Ratio 2.1 (0.8-1.1) Sodium Level 139 mmol/L (136-145) Potassium Level 3.9 mmol/L (3.5-5.1) Chloride Level 99 mmol/L (98-107) Carbon Dioxide Level 34 mmol/L (21-32) Anion Gap 6 (6-14) Blood Urea Nitrogen 17 mg/dL (7-20) Creatinine 0.9 mg/dL (0.6-1.0) Estimated GFR (Cockcroft-Gault) 76.3 Glucose Level 101 mg/dL (70-99) Calcium Level 9.6 mg/dL (8.5-10.1) Troponin I Quantitative < 0.017 ng/mL (0.000-0.055) Glucose (Fingerstick) 110 mg/dL (70-99) 74 mg/dL (70-99) 78 mg/dL (70-99) Test 08/31/18 16:51 08/31/18 20:53 09/01/18 04:36 09/01/18 07:35 Glucose (Fingerstick) 124 mg/dL (70-99) 127 mg/dL (70-99) 111 mg/dL (70-99) Prothrombin Time 23.8 SEC (11.7-14.0) Prothromb Time International Ratio 2.2 (0.8-1.1) Sodium Level 138 mmol/L (136-145) Potassium Level 3.9 mmol/L (3.5-5.1) Chloride Level 97 mmol/L (98-107) Carbon Dioxide Level 35 mmol/L (21-32) Anion Gap 6 (6-14) Blood Urea Nitrogen 24 mg/dL (7-20) Creatinine 1.2 mg/dL (0.6-1.0) Estimated GFR (Cockcroft-Gault) 54.7 Glucose Level 128 mg/dL (70-99) Calcium Level 9.6 mg/dL (8.5-10.1) Magnesium Level 2.1 mg/dL (1.8-2.4) Test 09/01/18 11:41 Glucose (Fingerstick) 150 mg/dL (70-99) Laboratory Tests Test 08/31/18 12:06 08/31/18 16:51 08/31/18 20:53 09/01/18 04:36 Glucose (Fingerstick) 78 mg/dL (70-99) 124 mg/dL (70-99) 127 mg/dL (70-99) Prothrombin Time 23.8 SEC (11.7-14.0) Prothromb Time International Ratio 2.2 (0.8-1.1) Sodium Level 138 mmol/L (136-145) Potassium Level 3.9 mmol/L (3.5-5.1) Chloride Level 97 mmol/L (98-107) Carbon Dioxide Level 35 mmol/L (21-32) Anion Gap 6 (6-14) Blood Urea Nitrogen 24 mg/dL (7-20) Creatinine 1.2 mg/dL (0.6-1.0) Estimated GFR (Cockcroft-Gault) 54.7 Glucose Level 128 mg/dL (70-99) Calcium Level 9.6 mg/dL (8.5-10.1) Magnesium Level 2.1 mg/dL (1.8-2.4) Test 09/01/18 07:35 09/01/18 11:41 Glucose (Fingerstick) 111 mg/dL (70-99) 150 mg/dL (70-99) Brief Hospital Course Ms Laguna 63 year old female with history of HTN, DM, chronic pain, and CAD (s/p stenting, CABG 2015 and PPM), COPD, SSS s/p PPM and recently started coumadin on 05/08/18, who presents to the ED today complaining of 8 out of 10 left sided sharp intermittent chest pain that has been going on since yesterday. Patient is also complaining of shortness of air on exertion and nausea. Patient denies anything specifically relieving her pain. She states she took an aspirin as well as nitroglycerin with no relief. Denies any fever, denies any coughing or congestion. She states she did not come yesterday because she is trying to "stretch her visits to the ED" because she comes frequently. She is smiling about this statement. She also states she is on oxycodone for her chronic pain but she ran out of the medications and left a voicemail at her physician's office on Friday. She does note she has had additional ankle swelling at home the past 3 days and had nausea so missed 3 doses of lasix and did have to take an additional dose 1x last week. Still takes metolazone MWF. For the past 3-4 days had increasing dyspnea on exertion and chest pain on exertion. Found with CXR consistent with cardiomegaly and concern for interstitial edema, BNP elevated EKG appears to have right axis deviation. Sees deckhand engineer at [facility], still on carvedilol 6.25mg and had metolazone 5mg q 48 hours added to her meds. She states she has not missed doses of her home meds, states she needs her 10mg ambien and 10-325mg oxycodone/apap continued while inpatient. She was seen by cardiology, improved after 2 days of IV diuresis. Advised to avoid cigarette smoke exposure. Greater than 30 minutes spent on discharge A/P: Chest pain - she does have a strong cardiac history, concerning for new EKG findings, will trend troponins overnight, this could be ACS. ASA, morphine. Consulted cardiology Shortness of breath - with her elevated BNP, interstitial edema and cardiomegaly on CXR I am concerned for CHF. Will order lasix IV and restart her home metolazone HTN - not initially well controlled, restart home medications, may need prn vasotec or hydralazine DM - cont her home levemir and mealtime scheduled plus sliding scale Acute on chronic diastolic heart failure: 2-D echo in February 2018 showed normal LV function with EF 50-55%. Continue gentle diuresis with Lasix. She had metolazone recently filled with her new deckhand engineer on 05/08/18 at [facility], but she does not recall this being one of her meds Hyperlipidemia - Continue statin therapy Sick sinus syndrome s/p permanent pacemaker implantation, stable. Apparently she was just started on warfarin as well. Will request med records from [facility]. Her INR is 1.6 FEN - Cardiac carb consistent diet PPX - Warfarin Discharge Information Condition at Discharge: Improved Follow Up: Weeks (2) Disposition/Orders: D/C to Home w/ HH Scheduled Aspirin (Aspir 81) 81 Mg Tablet.dr, 1 TAB PO DAILY, #30 Ref 5 (Reported) Entered as Reported by: FIFI WALSH on 10/28/16 1058 Last Action: Continued on 08/30/182327 by JOVANNY MORALES Atorvastatin Calcium (Atorvastatin Calcium) 20 Mg Tablet, 20 MG PO HS for FOR CHOLESTEROL, #30 Ref 0 (Reported) Entered as Reported by: FIFI WALSH on 10/28/16 1108 Last Action: Continued on 08/30/182327 by JOVANNY MORALES Calcium Carbonate/Vitamin D3 (Calcium 500 + Vit D 200 Caplet) 1 Each Tablet, 1 EACH PO DAILY for supplement, (Reported) Entered as Reported by: KENNEY YANG on 05/16/182321 Last Action: Reviewed on 08/30/182319 by JOVANNY MORALES Capsaicin (Capsaicin) 60 Gm Cream..g., 60 GM TP PRN TID for , (Reported) Entered as Reported by: Tiffany Dodson on 07/14/182110 Last Action: Converted on 08/30/182327 by JOVANNY MORALES Clonazepam (Clonazepam) 0.5 Mg Tablet, 0.5 MG PO TID for anti-anxiety, (Reported) Entered as Reported by: KENNEY YANG on 05/16/182321 Last Action: Continued on 08/30/182327 by JOVANNY MORALES Famotidine (Famotidine) 20 Mg Tablet, 20 MG PO BID for stomach acid, (Reported) Entered as Reported by: KENNEY YANG on 05/16/182321 Last Action: Continued on 08/30/182327 by JOVANNY MORALES Ferrous Sulfate (Ferrous Sulfate) 325 Mg Tablet, 1 TAB PO DAILY, #30 Ref 3 (Reported) Entered as Reported by: LOYDA CELAYA on 11/01/16 0014 Last Action: Reviewed on 08/30/182319 by JOVANNY MORALES Fluoxetine Hcl (Fluoxetine Hcl) 20 Mg Capsule, 1 CAP PO DAILY for anti- depressent, #90 Ref 1 (Reported) Entered as Reported by: KENNEY YANG on 05/16/182321 Last Action: Continued on 08/30/182327 by JOVANNY MORALES Furosemide (Furosemide) 80 Mg Tablet, 80 MG PO BID for heart, (Reported) Entered as Reported by: NAM MORTENSEN on 10/09/17 1408 Last Action: Continued on 08/30/182327 by JOVANNY MORALES Glimepiride (Amaryl) 2 Mg Tablet, 2 MG PO DAILY for 30 Days, #30 Prescribed by: RADHA PIERRE MD on 07/04/17 1010 Last Action: Continued on 08/30/182327 by JOVANNY MORALES Insulin Aspart (Novolog) 100 Unit/1 Ml Cartridge, 20 UNIT SQ TIDWMEALS for DIABETES, (Reported) Entered as Reported by: JOVANNY MORALES on 08/30/182319 Last Action: Converted on 08/30/182327 by JOVANNY MORALES Losartan Potassium (Losartan Potassium) 100 Mg Tablet, 100 MG PO DAILY for HYPERTENSION, (Reported) Entered as Reported by: CARMEN LAN on 03/13/18 1056 Last Action: Converted on 08/30/182327 by JOVANNY MORALES Metolazone (Metolazone) 5 Mg Tablet, 5 MG PO MoWeFr for CHF, #30 Ref 0 (Reported) Entered as Reported by: AURA HILL on 08/31/181223 Last Action: Converted on 08/31/181226 by VENKAT ALEJANDRO MD Metoprolol Tartrate (Metoprolol Tartrate) 25 Mg Tablet, 25 MG PO BID for FOR HYPERTENSION, #60 Ref 0 (Reported) Entered as Reported by: JOVANNY MORALES on 08/30/182319 Last Action: Continued on 08/30/182327 by JOVANNY OMRALES Ondansetron (Ondansetron Odt) 4 Mg Tab.rapdis, 1 TAB PO PRN Q6-8HRS, #16 Prescribed by: Celine Cevallos APRN on 08/13/182105 Last Action: Reviewed on 08/30/182319 by JOVANNY MORALES Ondansetron Hcl (Zofran) 4 Mg Tablet, 1 TAB PO PRN Q6-8HRS for nausea, #12 Prescribed by: JO-ANN BLOUNT MD on 07/12/18 1514 Last Action: Converted on 08/30/182327 by JOVANNY MORALES Zolpidem Tartrate (Zolpidem Tartrate) 5 Mg Tablet, 5 MG PO QHS for insomnia, Ref 0 (Reported) Entered as Reported by: KENNEY YANG on 05/16/182321 Last Action: Continued on 08/30/182327 by JOVANNY MORALES Scheduled PRN Albuterol Sulfate (Albuterol Sulfate Conc Neb Soln) 2.5 Mg/0.5 Ml Vial.neb, 5 MG NEB PRN PRN for WHEEZING, Ref 0 (Reported) Entered as Reported by: ROMY PHELAN on 10/07/172035 Last Action: Converted on 08/30/182327 by JOVANNY MORALES Albuterol Sulfate (Proair Hfa Inhaler) 8.5 Gm Hfa.aer.ad, 1 PUFF INH PRN Q6HRS PRN for SHORTNESS OF BREATH, #1 Ref 0 Prescribed by: MILLER ORTIZ MD on 06/21/18 171 Last Action: Continued on 08/30/182327 by JOVANNY MORALES Insulin Detemir (Levemir) 100 Unit/1 Ml Vial, 32 UNIT SQ BID PRN for DIABETES, (Reported) Entered as Reported by: JOAVNNY MORALES on 08/30/182319 Last Action: Converted on 08/30/182327 by JOVANNY MORALES Nitroglycerin (NITROGLYCERIN SubLingual) 0.4 Mg Tab.subl, 0.4 MG SL PRN Q5MIN PRN for CHEST PAIN, (Reported) Entered as Reported by: LOYDA CELAYA on 11/01/16 0013 Last Action: Continued on 08/30/182327 by JOVANNY MORALES Oxycodone/Apap 10-325 (Percocet 10-325 Mg Tablet ) 1 Each Tablet, 2 TAB PO PRN Q4-6HRS PRN for PAIN MDD 1, #20 Ref 0 Prescribed by: CATHIE KNIGHT on 05/19/18 09 Last Action: Continued on 08/30/182327 by JOVANNY MORALES Discontinued Medications Amlodipine Besylate (Amlodipine Besylate) 10 Mg Tablet, 10 MG PO DAILY for htn, (Reported) Entered as Reported by: KENNEY YANG on 05/16/182321 Last Action: Discontinued on 08/30/182319 by JOVANNY MORALES Warfarin Sodium (Warfarin Sodium) 5 Mg Tablet, 5 MG PO DAILY for blood thinner, #30 (Reported) Entered as Reported by: KSENIA SANDERSON on 07/06/18 0130 Last Action: Discontinued on 08/30/182319 by VENKAT CARUSO MD Sep 01, 2018 11:56
[2018-09-01] MEDS ORDERED: WARF10TA45 MC (11:57)
--- NOTE | 2018-09-01 13:24 | NUR ---
Discharge: Teaching verbal and written. Reviewed medication, CP, CHF, follow-up, ect. Patient verbalized understanding. No medication changes. All belongings with patient. Patient assisted off of unit via wheelchair. Home health re-stated.
--- NOTE | 2018-09-01 13:53 | NUR ---
SS following up with discharge planning. Discharge orders received for home healthcare. SS phoned and faxed discharge orders to [facility], ; [phone].
== END 2018-09-01 13:10 | disposition home health service (06) | DRG 291 ==
LOC: ER 16:33 → 2 NORTH 18:48
PROVIDERS: ADMIT Internal Medicine; ATTEND Internal Medicine
DX: I13.0 Hypertensive heart and chronic kidney disease with heart failure and stage 1 through stage 4 chronic kidney disease, or unspecified chronic kidney disease (principal); I50.33 Acute on chronic diastolic (congestive) heart failure; Z68.41 Body mass index [BMI] 40.0-44.9, adult; R07.89 Other chest pain; I27.20 Pulmonary hypertension, unspecified; E66.01 Morbid (severe) obesity due to excess calories; E11.22 Type 2 diabetes mellitus with diabetic chronic kidney disease; E78.00 Pure hypercholesterolemia, unspecified; E78.5 Hyperlipidemia, unspecified; G89.29 Other chronic pain; I25.10 Atherosclerotic heart disease of native coronary artery without angina pectoris; J44.9 Chronic obstructive pulmonary disease, unspecified; K21.9 Gastro-esophageal reflux disease without esophagitis; Z96.652 Presence of left artificial knee joint; N18.9 Chronic kidney disease, unspecified; M19.90 Unspecified osteoarthritis, unspecified site; Z83.3 Family history of diabetes mellitus; Z90.710 Acquired absence of both cervix and uterus; Z95.0 Presence of cardiac pacemaker; Z95.1 Presence of aortocoronary bypass graft; Z95.5 Presence of coronary angioplasty implant and graft; Z99.81 Dependence on supplemental oxygen; Z90.49 Acquired absence of other specified parts of digestive tract; I25.2 Old myocardial infarction; Z88.8 Allergy status to other drugs, medicaments and biological substances; Z79.4 Long term (current) use of insulin
CPT/HCPCS: 36415; 71045; 80048; 80053; 80307; 81001; 82553; 82962; 83735; 83880; 84443; 84484; 85025; 85610; 93005; 94640; 94760; 96374; 96375; J1815; J1885; J1940; J2405; J7613; J7620; 99285-25

== ENCOUNTER 2018-11-11 16:17 | Inpatient (IN) | payer OTHER ==
[~2018-11-11] VITALS: Ht 162.6 cm; Wt 104.4 kg
[~2018-11-11 16:17] MED LIST changes: +INSU100C4 SQ; +METO5TAB4 PO; +WARF10TA45 MC; +WARF3TAB50 PO
[2018-11-11] MEDS ORDERED: ASPIRIN 325 MG TABLET PO ONE (17:00)
[2018-11-11 17:14] LABS: BASO # 0.1 x10^3/uL (0.0-0.2); BASO % 1 % (0-3); EOS % 1 % (0-3); HEMATOCRIT 35.4 % (36.0-47.0); HEMOGLOBIN 11.7 g/dL (12.0-15.5); LYMPH # 1.5 x10^3/uL (1.0-4.8); LYMPH % 16 % (24-48); MEAN CORPUSCULAR HEMOGLOBIN 26 pg (25-35); MEAN CORPUSCULAR HGB CONC 33 g/dL (31-37); MEAN CORPUSCULAR VOLUME 80 fL (79-100); MONO # 0.9 x10^3/uL (0.0-1.1); MONO % 9 % (0-9); NEUT # 7.1 x10^3/uL (1.8-7.7); NEUT % 74 % (31-73); PLATELET COUNT 421 x10^3/uL (140-400); RED BLOOD COUNT 4.45 x10^6/uL (3.50-5.40); RED CELL DISTRIBUTION WIDTH 16.7 % (11.5-14.5); WHITE BLOOD COUNT 9.7 x10^3/uL (4.0-11.0)
[2018-11-11] MEDS ORDERED: ONDANSETRON PF 4 MG/2 ML VIAL. IV ONE (17:15)
[2018-11-11] MEDS ORDERED: fentaNYL PF VIAL 100 MCG/2 ML VIAL IV ONE (17:15)
[2018-11-11 17:29] LABS: PROTHROMBIN TIME PATIENT 13.2 SEC (11.7-14.0)
--- NOTE | 2018-11-11 17:31 | PHYS DOC ---
Past Medical History Past Medical History: COPD, Diabetes-Type II, GERD, High Cholesterol, Hypertension, AL, Other Additional Past Medical Histor: O2 @3 L PRN, chronic pain, NEUROPATHY Past Surgical History: Angioplasty, Cholecystectomy, Hysterectomy, Knee Replacement, Pacemaker, Other Additional Past Surgical Histo: STENTS, CABG, HERNIA REPAIR, BREAST REDUCTION Alcohol Use: None Drug Use: None Adult General Chief Complaint Chief Complaint: CHEST PAIN HPI HPI Patient is a 63 year old female who presents with with admitted on and had an echo done. Patient states she was here for the same left-sided chest pain that she is having now. Patient states that sharp and stabbing and is constant. Patient states it hurts more when she takes a breath and she has exertional shortness of air. She rates her pain a 7 out of 10. Patient states she's taken 2 nitros today and it did not help her pain. She stated that this chest pain started again on Friday evening. Patient states she also has some nausea. Patient has a history of a heart attack, CABG, diabetes, retention, high cholesterol, CHF. Review of Systems Review of Systems Constitutional: Denies fever or chills [] Respiratory: Denies cough. + shortness of breath [] Cardiovascular:Left chest pain GI: Denies abdominal pain, +nausea, denies vomiting, bloody stools or diarrhea [] : Denies dysuria or hematuria [] Neurologic: Denies headache, focal weakness or sensory changes [] All other systems were reviewed and found to be within normal limits, except as documented in this note. Current Medications Current Medications Current Medications Medications (Trade) Dose Ordered Sig/[facility] Start Time Stop Time Status Last Admin Dose Admin Aspirin (Jahaira Aspirin) 325 mg 1X ONCE 11/11/18 17:00 11/11/18 17:08 DC Aspirin (Children'S Aspirin) 162 mg 1X ONCE 11/11/18 18:00 11/11/18 18:02 DC 11/11/18 18:00 162 MG Fentanyl Citrate (Fentanyl 2ml Vial) 50 mcg 1X ONCE 11/11/18 17:15 11/11/18 17:16 DC 11/11/18 17:58 50 MCG Ondansetron HCl (Zofran) 4 mg 1X ONCE 11/11/18 17:15 11/11/18 17:16 DC 11/11/18 17:58 4 MG Allergies Allergies Allergies Coded Allergies Type Severity Reaction Last Updated Verified ibuprofen Adverse Reaction Intermediate Nausea and Vomiting 12/02/17 Yes Physical Exam Physical Exam Constitutional: Well developed, well nourished, no acute distress, non-toxic appearance. [] Eyes: PERRLA, EOMI, conjunctiva normal, no discharge. [] Cardiovascular:Sinus rhythm Heart rate regular rhythm, no murmur [] Lungs & Thorax: Bilateral breath sounds clear to auscultation [] Abdomen: Bowel sounds normal, soft, no tenderness, no masses, no pulsatile masses. [] Skin: Warm, dry, no erythema, no rash. [] Extremities: No tenderness, no cyanosis, no clubbing, ROM intact, no edema. [] Neurologic: Alert and oriented X 3, normal motor function, normal sensory function, no focal deficits noted. [] Psychologic: Affect normal, judgement normal, mood normal. [] Current Patient Data Vital Signs Vital Signs Date Time Temp Pulse Resp B/P (MAP) Pulse Ox O2 Delivery O2 Flow Rate FiO2 11/11/18 17:58 20 11/11/18 16:17 98.1 82 169/71 (103) 100 Room Air 98.1 Lab Values Laboratory Tests Test 11/11/18 17:08 White Blood Count 9.7 x10^3/uL (4.0-11.0) Red Blood Count 4.45 x10^6/uL (3.50-5.40) Hemoglobin 11.7 g/dL (12.0-15.5) L Hematocrit 35.4 % (36.0-47.0) L Mean Corpuscular Volume 80 fL (79-100) Mean Corpuscular Hemoglobin 26 pg (25-35) Mean Corpuscular Hemoglobin Concent 33 g/dL (31-37) Red Cell Distribution Width 16.7 % (11.5-14.5) H Platelet Count 421 x10^3/uL (140-400) H Neutrophils (%) (Auto) 74 % (31-73) H Lymphocytes (%) (Auto) 16 % (24-48) L Monocytes (%) (Auto) 9 % (0-9) Eosinophils (%) (Auto) 1 % (0-3) Basophils (%) (Auto) 1 % (0-3) Neutrophils # (Auto) 7.1 x10^3/uL (1.8-7.7) Lymphocytes # (Auto) 1.5 x10^3/uL (1.0-4.8) Monocytes # (Auto) 0.9 x10^3/uL (0.0-1.1) Eosinophils # (Auto) 0.0 x10^3/uL (0.0-0.7) Basophils # (Auto) 0.1 x10^3/uL (0.0-0.2) Prothrombin Time 13.2 SEC (11.7-14.0) Prothrombin Time INR 1.0 (0.8-1.1) D-Dimer (Anila) 0.60 ug/mlFEU (0.00-0.50) H Sodium Level 142 mmol/L (136-145) Potassium Level 4.4 mmol/L (3.5-5.1) Chloride Level 103 mmol/L (98-107) Carbon Dioxide Level 31 mmol/L (21-32) Anion Gap 8 (6-14) Blood Urea Nitrogen 10 mg/dL (7-20) Creatinine 0.7 mg/dL (0.6-1.0) Estimated GFR (Cockcroft-Gault) 101.9 BUN/Creatinine Ratio 14 (6-20) Glucose Level 119 mg/dL (70-99) H Calcium Level 10.3 mg/dL (8.5-10.1) H Total Bilirubin 0.3 mg/dL (0.2-1.0) Aspartate Amino Transferase (AST) 20 U/L (15-37) Alanine Aminotransferase (ALT) 20 U/L (14-59) Alkaline Phosphatase 92 U/L (46-116) Troponin I Quantitative < 0.017 ng/mL (0.000-0.055) KP-Vuh-U-Type Natriuretic Peptide 736 pg/mL (0-124) H Total Protein 7.9 g/dL (6.4-8.2) Albumin 3.6 g/dL (3.4-5.0) Albumin/Globulin Ratio 0.8 (1.0-1.7) L Laboratory Tests 11/11/18 17:08 Laboratory Tests 11/11/18 17:08 EKG EKG Sinus Rhythm and no STEMI[] Interpretation Time: [address] Otero Radiology/Procedures Radiology/Procedures [] Impressions: [facility] [address] [place] [address] IMAGING REPORT Signed PATIENT: GRETCHEN BONILLA EACCOUNT: [id number] : 1955 LOCATION: ER AGE: 63 SEX: F EXAM STATUS: REG ER ORD. PHYSICIAN: LUIS A KING APRN REASON: CHEST PAIN PROCEDURE: CHEST PA & LATERAL Chest PA and lateral: Reason for examination: Chest pain. Comparison is made to previous study dated 11/05/2018. There are postop changes in the sternum. Pacemaker remains present on the left hemithorax. The heart size is enlarged but unchanged.. Mediastinum is unremarkable. Lung tripp are clear. No acute bony abnormalities are seen. Impression: Cardiomegaly but no gross congestion or infiltrates. Electronically signed by: Chuyita Antoine MD (11/11/2018 5:57 PM) [id number] DICTATED and SIGNED BY: CHUYITA ANTOINE MD DATE: 11/11/181756 Course & Med Decision Making Course & Med Decision Making Patient is a 63 year old female who presents with with admitted on and had an echo done. Patient states she was here for the same left-sided chest pain that she is having now. Patient states that sharp and stabbing and is constant. Patient states it hurts more when she takes a breath and she has exertional shortness of air. She rates her pain a 7 out of 10. Patient states she's taken 2 nitros today and it did not help her pain. She stated that this chest pain started again on Friday evening. Patient states she also has some nausea. Patient has a history of a heart attack, CABG, diabetes, retention, high cholesterol, CHF. Alert and oriented. Skin pink warm and dry. No extremity swelling. Lungs are clear to auscultation in all lobes. Speaks in full clear sentences. Abdomen is soft and non-tender. Vital signs are within normal limits. Chest pain cannot be reproduced with palpation. PERRLA. Denies any weaknesses, vomiting, fever, dysuria, recent illness. DDimer elevated. CTA chest ordered. Patient is admitted to Dr Keen. Hakeem Disclaimer Hakeem Disclaimer This electronic medical record was generated, in whole or in part, using a voice recognition dictation system. The HEART Score for CP Pts HEART Score for Chest Pain: HEART Score for Chest Pain Response (Comments) Value History Moderately Suspicious 1 ECG Normal 0 Age >45 - < 65 1 Risk Factors >3 Risk Factors or Hx CAD 2 Troponin < Normal Limit 0 Total 4 Risk Factors: Risk Factors: DM, Current or recent (<one month) smoker, HTN, HLP, family history of CAD, obesity. Risk Scores: Score 0 - 3: 2.5% MACE over next 6 weeks - Discharge Home Score 4 - 6: 20.3% MACE over next 6 weeks - Admit for Clinical Observation Score 7 - 10: 72.7% MACE over next 6 weeks - Early Invasive Strategies Departure Departure Impression: Primary Impression: Chest pain Disposition: 09 ADMITTED INPATIENT Admitting Physician: MAGNUS Condition: STABLE Referrals: JENSEN CUEVAS (PCP) Problem Qualifiers Primary Impression: Chest pain Chest pain type: unspecified Qualified Codes: R07.9 - Chest pain, unspecified LUIS A KING CAREER TECHNOLOGY TEACHER Nov 11, 2018 17:31
[2018-11-11 17:32] LABS: CALCIUM 10.3 mg/dL (8.5-10.1); CREATININE 0.7 mg/dL (0.6-1.0); GFR 101.9; POTASSIUM 4.4 mmol/L (3.5-5.1)
[2018-11-11 17:34] LABS: ALBUMIN 3.6 g/dL (3.4-5.0); ALBUMIN/GLOBULIN RATIO 0.8 (1.0-1.7); TOTAL BILIRUBIN 0.3 mg/dL (0.2-1.0); TOTAL PROTEIN 7.9 g/dL (6.4-8.2)
[2018-11-11 17:47] LABS: D-DIMER 0.6 ug/mlFEU (0.00-0.50)
[2018-11-11] MEDS ORDERED: ASPIRIN CHEWABLE 81 MG TABLET. PO ONE (18:00)
--- NOTE | 2018-11-11 18:00 | RAD ---
Chest PA and lateral: Reason for examination: Chest pain. Comparison is made to previous study dated 11/05/2018. There are postop changes in the sternum. Pacemaker remains present on the left hemithorax. The heart size is enlarged but unchanged.. Mediastinum is unremarkable. Lung tripp are clear. No acute bony abnormalities are seen. Impression: Cardiomegaly but no gross congestion or infiltrates. Electronically signed by: Wendy Marie MD (11/11/2018 5:57 PM) [id number]
[2018-11-11] MEDS ORDERED: ACETAMINOPHEN 325 MG TABLET. PO PRN (18:30)
[2018-11-11] MEDS ORDERED: fentaNYL PF VIAL 100 MCG/2 ML VIAL IV PRN (18:30)
[2018-11-11] MEDS ORDERED: IOHEXOL 350 MG/ML 100 ML VIAL. IV ONE (18:30)
[2018-11-11] MEDS ORDERED: CONTRAST GIVEN. MC PRN (18:30)
[2018-11-11] MEDS ORDERED: ONDANSETRON PF 4 MG/2 ML VIAL. IV PRN (18:30)
--- NOTE | 2018-11-11 18:54 | RAD ---
Exam: CT of chest with contrast INDICATION: Chest pain TECHNIQUE: Sequential axial images through the chest obtained following the administration of 100 mL of Omnipaque 350 IV contrast. Sagittal and coronal reformatted images were reconstructed from the axial data and reviewed. Comparisons: None FINDINGS: Visualized portions of the thyroid are unremarkable. No enlarged mediastinal lymph nodes. Heart is mildly enlarged. Moderate coronary artery calcifications are noted. Pacer with leads terminating in the right atrium and ventricle is seen. No pericardial effusion. Thoracic aorta has a normal course and caliber. Pulmonary artery is not enlarged. No pulmonary embolus identified within the main, lobar or segmental pulmonary arteries. Airways are patent. No consolidation or pneumothorax. Linear bandlike opacity noted at the lung bases bilaterally likely representing atelectasis. No consolidation or pneumothorax. 5 mm pulmonary nodule right lower lobe series 3 image 76. No pleural effusion or thickening. Mildly nodular contour of the liver. Otherwise, visualized upper abdomen is unremarkable. Sternotomy wires are noted. No suspicious osseous lesions or acute fractures. IMPRESSION: 1. No pulmonary embolus identified within the main, lobar or segmental pulmonary arteries. 2. A 5 mm pulmonary nodule in the right lower lobe. In a low-risk patient no further follow-up imaging is recommended. In a high-risk patient and optional one-year follow-up CT can BE performed. 3. Mildly nodular contour of the liver which can be seen in cirrhosis. Correlate with LFTs. Exposure: One or more of the following in the visualized dose reduction techniques were utilized for this examination: 1. Automated exposure control 2. Adjustment of the MA and/or KV according to patient size 3. Use of iterative of reconstructive technique Electronically signed by: Kunal Fu MD (11/11/2018 6:51 PM) [facility]
[2018-11-11 19:15] VITALS: BP 180/73
[2018-11-11] MEDS ORDERED: IV DEXTROSE 5% 250 ML BAG. IV PRN (20:00)
[2018-11-11] MEDS ORDERED: NITROGLYCERIN SUBLINGUAL 0.4 MG BOTTLE OF 25. SL PRN (20:00)
[2018-11-11] MEDS ORDERED: DEXTROSE 50% 25 GM / 50ML DISP.SYRIN. IV PRN (20:00)
[2018-11-11] MEDS: clonazePAM 0.5 MG TABLET PO SCH (20:44)
[2018-11-11] MEDS: FAMOTIDINE 20 MG TABLET. PO SCH (20:45)
[2018-11-11] MEDS: METOPROLOL TART IMMED RELEASE 25 MG TABLET. PO SCH (20:45)
[2018-11-11] MEDS: oxyCODONE/APAP 10/325 1 TAB TABLET PO PRN (20:46)
[2018-11-11] MEDS ORDERED: ATORVASTATIN CALCIUM 20 MG TABLET PO SCH (21:00)
[2018-11-11] MEDS ORDERED: ZOLPIDEM 5 MG TABLET. PO SCH (21:00)
--- NOTE | 2018-11-11 22:33 | HP ---
ADMIT DATE: 11/11/2018 CHIEF COMPLAINT: Chest pain. HISTORY OF PRESENT ILLNESS: The patient is a pleasant 63-year-old female, who presented with chest pain. Rates it as 6/10. It has been occurring for a couple of days. Described as irritating, radiating to her back. She took some home meds, but that did not work. I discussed the case with the ER physician. We are going to admit the patient and consult Cardiology. PAST MEDICAL HISTORY: Angina, COPD, diabetes, hypertension, GERD, depression, anxiety, chronic pain, neuropathy, cholecystectomy, angioplasty, hysterectomy, knee replacement, pacemaker, bypass surgery, hernia repair, breast reduction. ALLERGIES: IBUPROFEN. FAMILY HISTORY: Coronary disease. SOCIAL HISTORY: She does not drink, smoke or take drugs. She lives at home with her granddaughter. MEDICATIONS: Reviewed, please refer to the MRAD. REVIEW OF SYSTEMS: GENERAL: No history of weight change, weakness or fevers. SKIN: No bruising, hair changes or rashes. EYES: No blurred, double or loss of vision. NOSE AND THROAT: No history of nosebleeds, hoarseness or sore throat. HEART: She complains of chest pain. LUNGS: Denies cough, hemoptysis, wheezing or shortness of breath. GASTROINTESTINAL: Denies changes in appetite, nausea, vomiting, diarrhea or constipation. GENITOURINARY: No history of frequency, urgency, hesitancy or nocturia. NEUROLOGIC: Denies history of numbness, tingling, tremor or weakness. PSYCHIATRIC: No history of panic, anxiety or depression. ENDOCRINE: No history of heat or cold intolerance, polyuria or polydipsia. EXTREMITIES: Denies muscle weakness, joint pain, pain on walking or stiffness. PHYSICAL EXAMINATION: VITALS: Within normal limits and are stable. GENERAL: No apparent distress. Alert and oriented. HEENT: Head is normocephalic, atraumatic, pupils were equally round and reactive to light and accommodation. NECK: Supple, no JVD, no thyromegaly was noted. LUNGS: Clear to auscultation in all lung tripp without rhonchi or wheezing. HEART: RRR, S1, S2 present. Peripheral pulses intact, no obvious murmurs were noted. ABDOMEN: Soft, nontender. Positive bowel sounds no organomegaly, normal bowel sounds. EXTREMITIES: Without any cyanosis, clubbing, or edema. Pedal pulses intact, Homans sign is negative. NEUROLOGIC: Normal speech, normal tone. A & O x3, moves all extremities, no obvious focal deficits. PSYCHIATRIC: Normal affect, normal mood. Stable. SKIN: No ulcerations or rashes, good skin turgor, no jaundice. VASCULAR: Good capillary refill, neurovascular bundle appears to be intact. LABORATORY DATA: Troponin is 0. Hemoglobin is 11.7. BNP 736. ASSESSMENT AND PLAN: Chest pain with slightly elevated BNP consistent with possible heart failure. The patient has been admitted. We will check serial enzymes, serial EKGs, echocardiogram, consult Cardiology, cardiac monitoring, DVT prophylaxis, home meds, full code. PERICO BUCHANAN DO DR: AHMET/amrik JOB#: [id number] / [id number]
[2018-11-11] MEDS: CAPSAICIN 0.025% TOPICAL CREAM 60GM TUBE. TP PRN (23:46)
[2018-11-11 23:52] VITALS: BP 146/64
[2018-11-12] MEDS: oxyCODONE/APAP 10/325 1 TAB TABLET PO PRN ×5 (01:32→20:00)
[2018-11-12 03:36] VITALS: BP 141/61
[2018-11-12 05:29] LABS: BARBITURATES NEG (NEG); BENZODIAZEPINES NEG (NEG); CANNABINOIDS NEG (NEG); COCAINE NEG (NEG); METHADONE NEG (NEG); OPIATES POS (NEG); PHENCYCLIDINE NEG (NEG)
[2018-11-12 05:30] LABS: AMPHETAMINE/METHAMPHETAMINE NEG (NEG)
[2018-11-12 05:35] LABS: BILIRUBIN,URINE SMALL (NEG); CLARITY,URINE CLEAR; COLOR,URINE YELLOW; NITRITE,URINE NEGATIVE (NEG); PROTEIN,URINE 30 mg/dL (NEG-TRACE); UROBILINOGEN,URINE 0.2 mg/dL (0.2 mg/dL)
--- NOTE | 2018-11-12 05:54 | NUR ---
Patient arrived at 1930 and chief complaint was sternal chest pain near pacemaker site. Medications reviewed and verified.
--- NOTE | 2018-11-12 06:10 | EKG ---
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
[2018-11-12 06:13] LABS: SQUAMOUS EPITHELIAL CELL,UR MANY /LPF
[2018-11-12 06:14] LABS: BACTERIA,URINE MANY /HPF (0-FEW)
[2018-11-12 07:00] VITALS: BP 146/67
[2018-11-12] MEDS ORDERED: CLOPIDOGREL BISULFATE 75 MG TABLET PO SCH (08:00)
[2018-11-12] MEDS: INSULIN LISPRO 300 UNITS/3 ML VIAL. SQ SCH ×3 (08:00→17:00)
[2018-11-12] MEDS: clonazePAM 0.5 MG TABLET PO SCH ×2 (08:49→14:06)
[2018-11-12] MEDS: FAMOTIDINE 20 MG TABLET. PO SCH (08:49)
[2018-11-12] MEDS: METOPROLOL TART IMMED RELEASE 25 MG TABLET. PO SCH (08:49)
[2018-11-12] MEDS: FUROSEMIDE 80 MG TABLET. PO SCH ×2 (08:49→14:05)
[2018-11-12] MEDS: CAPSAICIN 0.025% TOPICAL CREAM 60GM TUBE. TP PRN (08:50)
[2018-11-12] MEDS ORDERED: FLUoxetine HCL 20 MG CAPSULE PO SCH (09:00)
[2018-11-12] MEDS ORDERED: CALCIUM CARB/VIT D3 500/200 TABLET. PO SCH (09:00)
[2018-11-12] MEDS ORDERED: GLIMEPIRIDE 2 MG TABLET. PO SCH (09:00)
[2018-11-12] MEDS ORDERED: ASPIRIN ENTERIC COATED 81 MG TABLET.DR. PO SCH (09:00)
--- NOTE | 2018-11-12 10:26 | PDOC ---
PROGRESS NOTES History of Present Illness History of Present Illness discharge dx Chest pain, stable angina acute heart failure. Akinetic distal anterior wall and the entire apical wall with ejection fraction estimated at 40%.per cath 05/12 admitted. cvc bed serial enzymes, serial EKGs, echocardiogram, consult Cardiology, cardiac monitoring, DVT prophylaxis, home meds, full code. Vitals Vitals Vital Signs Date Time Temp Pulse Resp B/P (MAP) Pulse Ox O2 Delivery O2 Flow Rate FiO2 11/12/18 08:50 65 11/12/18 08:00 Room Air 11/12/18 07:00 98.1 17 146/67 (93) 97 98.1 11/12/18 05:50 2.0 Physical Exam Physical Exam GENERAL: No apparent distress. Alert and oriented. HEENT: Head is normocephalic, atraumatic, pupils were equally round and reactive to light and accommodation. NECK: Supple, no JVD, no thyromegaly was noted. LUNGS: Clear to auscultation in all lung tripp without rhonchi or wheezing. HEART: RRR, S1, S2 present. Peripheral pulses intact, no obvious murmurs were noted. ABDOMEN: Soft, nontender. Positive bowel sounds no organomegaly, normal bowel sounds. EXTREMITIES: Without any cyanosis, clubbing, or edema. Pedal pulses intact, Homans sign is negative. NEUROLOGIC: Normal speech, normal tone. A & O x3, moves all extremities, no obvious focal deficits. PSYCHIATRIC: Normal affect, normal mood. Stable. SKIN: No ulcerations or rashes, good skin turgor, no jaundice. VASCULAR: Good capillary refill, neurovascular bundle appears to be intact. General: Alert, Oriented X3, Cooperative Heart: Regular rate Lungs: Clear, Crackles Abdomen: Normal bowel sounds, Soft Extremities: No cyanosis Labs LABS PAST MEDICAL HISTORY: Multiple admissions for loneliness, angina, CAD, CHF, COPD, diabetes, hypertension, myocardial infarction, cholecystectomy, bypass surgery, hysterectomy, knee replacement, pacemaker, cardiac stents. ALLERGIES: IBUPROFEN. FAMILY HISTORY: Coronary artery disease. SOCIAL HISTORY: She does not drink. She quit smoking, no drugs. She lives at home alone, but her granddaughter is there, sometimes. Technologist: Suze Lewis, RT (R) Nurse: patti hua RN Procedure(s) performed: Left heart catheterization, selective coronary angiography, selective angiography of the bypass grafts and left ventriculography Moderate sedation: 28 minutes INDICATION The indication(s) include : unstable angina . CSHA Clinical Frailty Scale [facility] Clinical Frailty Scale: Managing Well Heart Failure Heart Failure: Yes If Yes, Newly Diagnosed: No If Yes, HF Type: Systolic If Yes, NYHA Class: Class III PROCEDURE NARRATIVE After explaining the risks, benefits and alternative options, informed consent was obtained from patient. Patient was brought to the cardiac Stock Counter and her right groin prepped and draped in the usual fashion. 20 mL of 2% lidocaine was infiltrated into the skin and subcutaneous tissues for local anesthesia. Arterial access was obtained in the right common femoral artery and a 6 [place] sheath was inserted. 6 [place] JL4 and 6 [place] JR4 catheters placed to perform selective angiography of the left and right coronary arteries. The 6 [place] JR4 catheter was then used to perform selective angiography of the saphenous vein graft to the obtuse marginal branch and the left internal mammary artery graft to the left anterior descending artery. Finally, a 6 [place] pigtail catheter was used to perform left ventriculography. Patient tolerated the procedure well. Hemostasis was achieved using Angio-Seal. There were no immediate complications. The following findings were noted. FINDINGS 1. Hemodynamics: Left ventricular end-diastolic pressure 20 mmHg. No pullback gradient across the aortic valve. 2. Left ventriculography: Akinetic distal anterior wall and the entire apical wall with ejection fraction estimated at 40%. No significant mitral regurgitation was seen. 3. Coronary and bypass graft angiography: a. The left main coronary artery arose from the left sinus of Valsalva, gave rise to the left anterior descending and left circumflex arteries and did not show any significant stenosis. b. The left anterior descending artery did not show any significant stenosis. c. The left circumflex artery showed 40% stenosis involving the proximal segment of the obtuse marginal branch. d. The right coronary artery was a large and dominant vessel arising from the right sinus of Valsalva that did not show any significant stenosis. e. The saphenous vein graft to the obtuse marginal branch was widely patent. d. The left internal mammary artery graft to the left anterior descending artery was patent. Conclusion 1. 40% stenosis involving the obtuse marginal branch of left circumflex artery without any other significant stenoses. The left internal mammary artery graft to the left anterior descending artery and the saphenous vein graft to the obtuse marginal branch were patent. Of note, patient seems to have had CABG for thrombus in left main coronary artery and left anterior descending artery in the past. No lesions were noted because the thrombus resolved. 2. Akinetic distal anterior wall and the entire apical wall with ejection fraction estimated at 40%. Recommendations Medical Therapy Signed by : Roger Aggarwal, Electronically Approved : 05/18/2018 12:25:07 APPROVED REPORT EXAM: Two-dimensional and M-mode echocardiogram with Doppler, color Doppler with contrast. Other Information Quality : Technically Limited HR: 61bpm Rhythm : NSR Technically limited study due to body habitus and CABG. INDICATION Chest Pain Echo Enhancing Agent Indication: Endocardial border delineation Agent/Amount Used: Optison 1mL 2D DIMENSIONS RVDd 3.4 (2.9-3.5cm) Left Atrium(2D) 4.0 (1.6-4.0cm) IVSd 1.8 (0.7-1.1cm) Aortic Root(2D) 3.1 (2.0-3.7cm) LVDd 5.2 (3.9-5.9cm) LVOT Diameter 1.9 (1.8-2.4cm) PWd 1.4 (0.7-1.1cm) LVDs 3.3 (2.5-4.0cm) FS (%) 37.0 % SV 87.7 ml LVEF(%) 66.5 (>50%) M-Mode DIMENSIONS Left Atrium(MM) 4.30 (2.5-4.0cm) Aortic Root 3.37 (2.2-3.7cm) Aortic Valve AoV Peak Roel. 174.2cm/s AoV VTI 33.9cm AO Peak GR. 12.1mmHg LVOT Peak Roel. 114.2cm/s LVOT VTI 20.89cm AO Mean GR. 6mmHg TISH (VMAX) 1.36cm2 TISH (VTI) 1.73cm2 Mitral Valve MV E Velocity 84.6cm/s MV DECEL TIME 186ms MV A Velocity 57.7cm/s MV PHT 54ms E/A Ratio 1.5 MVA (PHT) 4.07cm2 TDI E/Lateral E' 12.8 E/Medial E' 17.3 Pulmonary Valve PV Peak Velocity 160.1cm/s PV Peak Grad. 10mmHg Tricuspid Valve TR P. Velocity 286cm/s RAP ESTIMATE 3mmHg TR Peak Gr. 33mmHg RVSP 36mmHg LEFT VENTRICLE The left ventricle is normal size. There is moderate concentric left ventricular hypertrophy. Left ventricle systolic function is normal. The Ejection Fraction is 50-55%. Septal motion consistent with post-operative state. Optison was used to enchance endocardial border but still unable to accurately access wall motion. RIGHT VENTRICLE The right ventricle is normal size. There is normal right ventricular wall thickness. The right ventricular systolic function is normal. ATRIA The left atrium is mildly dilated. The right atrium size is normal. The interatrial septum is intact with no evidence for an atrial septal defect or patent foramen ovale as noted on 2-D or Doppler imaging. AORTIC VALVE The aortic valve is not well visualized. Doppler and Color Flow revealed no significant aortic regurgitation. There is no significant aortic valvular stenosis. MITRAL VALVE The mitral valve is normal in structure and function. There is no evidence of mitral valve prolapse. There is no mitral valve stenosis. Doppler and Color-flow revealed trace mitral regurgitation. TRICUSPID VALVE The tricuspid valve is normal in structure and function. Doppler and Color Flow revealed trace tricuspid regurgitation. The PA pressure was estimated at 36 mmHg. There is no tricuspid valve prolapse or vegetation. There is no tricuspid valve stenosis. PULMONIC VALVE The pulmonic valve is not well visualized. GREAT VESSELS The aortic root is normal in size. The ascending aorta is normal in size. The IVC was not visualized. PERICARDIAL EFFUSION There is no evidence of significant pericardial effusion. Critical Notification Critical Value: No <Conclusion> Technically very difficult study. Endocardial definition not good despite using Optison echo contrast. Left ventricle systolic function appears normal. The Ejection Fraction is 50-55%. Trace mitral regurgitation. Trace tricuspid regurgitation. The PA pressure was estimated at 36 mmHg. There is no evidence of significant pericardial effusion. Signed by : Roger Aggarwal, Electronically Approved : 11/06/2018 15:04:43 Laboratory Tests Test 11/11/18 17:08 11/11/18 20:57 11/11/18 21:10 11/12/18 05:10 White Blood Count 9.7 x10^3/uL (4.0-11.0) Red Blood Count 4.45 x10^6/uL (3.50-5.40) Hemoglobin 11.7 g/dL (12.0-15.5) Hematocrit 35.4 % (36.0-47.0) Mean Corpuscular Volume 80 fL (79-100) Mean Corpuscular Hemoglobin 26 pg (25-35) Mean Corpuscular Hemoglobin Concent 33 g/dL (31-37) Red Cell Distribution Width 16.7 % (11.5-14.5) Platelet Count 421 x10^3/uL (140-400) Neutrophils (%) (Auto) 74 % (31-73) Lymphocytes (%) (Auto) 16 % (24-48) Monocytes (%) (Auto) 9 % (0-9) Eosinophils (%) (Auto) 1 % (0-3) Basophils (%) (Auto) 1 % (0-3) Neutrophils # (Auto) 7.1 x10^3/uL (1.8-7.7) Lymphocytes # (Auto) 1.5 x10^3/uL (1.0-4.8) Monocytes # (Auto) 0.9 x10^3/uL (0.0-1.1) Eosinophils # (Auto) 0.0 x10^3/uL (0.0-0.7) Basophils # (Auto) 0.1 x10^3/uL (0.0-0.2) Prothrombin Time 13.2 SEC (11.7-14.0) Prothromb Time International Ratio 1.0 (0.8-1.1) D-Dimer (Anila) 0.60 ug/mlFEU (0.00-0.50) Sodium Level 142 mmol/L (136-145) Potassium Level 4.4 mmol/L (3.5-5.1) Chloride Level 103 mmol/L (98-107) Carbon Dioxide Level 31 mmol/L (21-32) Anion Gap 8 (6-14) Blood Urea Nitrogen 10 mg/dL (7-20) Creatinine 0.7 mg/dL (0.6-1.0) Estimated GFR (Cockcroft-Gault) 101.9 BUN/Creatinine Ratio 14 (6-20) Glucose Level 119 mg/dL (70-99) Calcium Level 10.3 mg/dL (8.5-10.1) Total Bilirubin 0.3 mg/dL (0.2-1.0) Aspartate Amino Transf (AST/SGOT) 20 U/L (15-37) Alanine Aminotransferase (ALT/SGPT) 20 U/L (14-59) Alkaline Phosphatase 92 U/L (46-116) Troponin I Quantitative < 0.017 ng/mL (0.000-0.055) < 0.017 ng/mL (0.000-0.055) NC-Xza-Q-Type Natriuretic Peptide 736 pg/mL (0-124) Total Protein 7.9 g/dL (6.4-8.2) Albumin 3.6 g/dL (3.4-5.0) Albumin/Globulin Ratio 0.8 (1.0-1.7) Glucose (Fingerstick) 171 mg/dL (70-99) Urine Collection Type Unknown Urine Color Yellow Urine Clarity Clear Urine pH 5.0 Urine Specific [place] >=1.030 Urine Protein 30 mg/dL (NEG-TRACE) Urine Glucose (UA) Negative mg/dL (NEG) Urine Ketones (Stick) Negative mg/dL (NEG) Urine Blood Negative (NEG) Urine Nitrite Negative (NEG) Urine Bilirubin Small (NEG) Urine Urobilinogen Dipstick 0.2 mg/dL (0.2 mg/dL) Urine Leukocyte Esterase Negative (NEG) Urine RBC 1-2 /HPF (0-2) Urine WBC 1-4 /HPF (0-4) Urine Squamous Epithelial Cells Many /LPF Urine Bacteria Many /HPF (0-FEW) Urine Mucus Marked /LPF Urine Opiates Screen Pos (NEG) Urine Methadone Screen Neg (NEG) Urine Barbiturates Neg (NEG) Urine Phencyclidine Screen Neg (NEG) Urine Amphetamine/Methamphetamine Neg (NEG) Urine Benzodiazepines Screen Neg (NEG) Urine Cocaine Screen Neg (NEG) Urine Cannabinoids Screen Neg (NEG) Urine Ethyl Alcohol Neg (NEG) Test 11/12/18 07:33 Glucose (Fingerstick) 144 mg/dL (70-99) Comment Review of Relevant I have reviewed the following items nolan (where applicable) has been applied. Labs Laboratory Tests Test 11/11/18 17:08 11/11/18 20:57 11/11/18 21:10 11/12/18 05:10 White Blood Count 9.7 x10^3/uL (4.0-11.0) Red Blood Count 4.45 x10^6/uL (3.50-5.40) Hemoglobin 11.7 g/dL (12.0-15.5) Hematocrit 35.4 % (36.0-47.0) Mean Corpuscular Volume 80 fL (79-100) Mean Corpuscular Hemoglobin 26 pg (25-35) Mean Corpuscular Hemoglobin Concent 33 g/dL (31-37) Red Cell Distribution Width 16.7 % (11.5-14.5) Platelet Count 421 x10^3/uL (140-400) Neutrophils (%) (Auto) 74 % (31-73) Lymphocytes (%) (Auto) 16 % (24-48) Monocytes (%) (Auto) 9 % (0-9) Eosinophils (%) (Auto) 1 % (0-3) Basophils (%) (Auto) 1 % (0-3) Neutrophils # (Auto) 7.1 x10^3/uL (1.8-7.7) Lymphocytes # (Auto) 1.5 x10^3/uL (1.0-4.8) Monocytes # (Auto) 0.9 x10^3/uL (0.0-1.1) Eosinophils # (Auto) 0.0 x10^3/uL (0.0-0.7) Basophils # (Auto) 0.1 x10^3/uL (0.0-0.2) Prothrombin Time 13.2 SEC (11.7-14.0) Prothromb Time International Ratio 1.0 (0.8-1.1) D-Dimer (Anila) 0.60 ug/mlFEU (0.00-0.50) Sodium Level 142 mmol/L (136-145) Potassium Level 4.4 mmol/L (3.5-5.1) Chloride Level 103 mmol/L (98-107) Carbon Dioxide Level 31 mmol/L (21-32) Anion Gap 8 (6-14) Blood Urea Nitrogen 10 mg/dL (7-20) Creatinine 0.7 mg/dL (0.6-1.0) Estimated GFR (Cockcroft-Gault) 101.9 BUN/Creatinine Ratio 14 (6-20) Glucose Level 119 mg/dL (70-99) Calcium Level 10.3 mg/dL (8.5-10.1) Total Bilirubin 0.3 mg/dL (0.2-1.0) Aspartate Amino Transf (AST/SGOT) 20 U/L (15-37) Alanine Aminotransferase (ALT/SGPT) 20 U/L (14-59) Alkaline Phosphatase 92 U/L (46-116) Troponin I Quantitative < 0.017 ng/mL (0.000-0.055) < 0.017 ng/mL (0.000-0.055) DS-Zos-D-Type Natriuretic Peptide 736 pg/mL (0-124) Total Protein 7.9 g/dL (6.4-8.2) Albumin 3.6 g/dL (3.4-5.0) Albumin/Globulin Ratio 0.8 (1.0-1.7) Glucose (Fingerstick) 171 mg/dL (70-99) Urine Collection Type Unknown Urine Color Yellow Urine Clarity Clear Urine pH 5.0 Urine Specific [place] >=1.030 Urine Protein 30 mg/dL (NEG-TRACE) Urine Glucose (UA) Negative mg/dL (NEG) Urine Ketones (Stick) Negative mg/dL (NEG) Urine Blood Negative (NEG) Urine Nitrite Negative (NEG) Urine Bilirubin Small (NEG) Urine Urobilinogen Dipstick 0.2 mg/dL (0.2 mg/dL) Urine Leukocyte Esterase Negative (NEG) Urine RBC 1-2 /HPF (0-2) Urine WBC 1-4 /HPF (0-4) Urine Squamous Epithelial Cells Many /LPF Urine Bacteria Many /HPF (0-FEW) Urine Mucus Marked /LPF Urine Opiates Screen Pos (NEG) Urine Methadone Screen Neg (NEG) Urine Barbiturates Neg (NEG) Urine Phencyclidine Screen Neg (NEG) Urine Amphetamine/Methamphetamine Neg (NEG) Urine Benzodiazepines Screen Neg (NEG) Urine Cocaine Screen Neg (NEG) Urine Cannabinoids Screen Neg (NEG) Urine Ethyl Alcohol Neg (NEG) Test 11/12/18 07:33 Glucose (Fingerstick) 144 mg/dL (70-99) Laboratory Tests Test 11/11/18 17:08 11/11/18 20:57 11/11/18 21:10 11/12/18 05:10 White Blood Count 9.7 x10^3/uL (4.0-11.0) Red Blood Count 4.45 x10^6/uL (3.50-5.40) Hemoglobin 11.7 g/dL (12.0-15.5) Hematocrit 35.4 % (36.0-47.0) Mean Corpuscular Volume 80 fL (79-100) Mean Corpuscular Hemoglobin 26 pg (25-35) Mean Corpuscular Hemoglobin Concent 33 g/dL (31-37) Red Cell Distribution Width 16.7 % (11.5-14.5) Platelet Count 421 x10^3/uL (140-400) Neutrophils (%) (Auto) 74 % (31-73) Lymphocytes (%) (Auto) 16 % (24-48) Monocytes (%) (Auto) 9 % (0-9) Eosinophils (%) (Auto) 1 % (0-3) Basophils (%) (Auto) 1 % (0-3) Neutrophils # (Auto) 7.1 x10^3/uL (1.8-7.7) Lymphocytes # (Auto) 1.5 x10^3/uL (1.0-4.8) Monocytes # (Auto) 0.9 x10^3/uL (0.0-1.1) Eosinophils # (Auto) 0.0 x10^3/uL (0.0-0.7) Basophils # (Auto) 0.1 x10^3/uL (0.0-0.2) Prothrombin Time 13.2 SEC (11.7-14.0) Prothromb Time International Ratio 1.0 (0.8-1.1) D-Dimer (Anila) 0.60 ug/mlFEU (0.00-0.50) Sodium Level 142 mmol/L (136-145) Potassium Level 4.4 mmol/L (3.5-5.1) Chloride Level 103 mmol/L (98-107) Carbon Dioxide Level 31 mmol/L (21-32) Anion Gap 8 (6-14) Blood Urea Nitrogen 10 mg/dL (7-20) Creatinine 0.7 mg/dL (0.6-1.0) Estimated GFR (Cockcroft-Gault) 101.9 BUN/Creatinine Ratio 14 (6-20) Glucose Level 119 mg/dL (70-99) Calcium Level 10.3 mg/dL (8.5-10.1) Total Bilirubin 0.3 mg/dL (0.2-1.0) Aspartate Amino Transf (AST/SGOT) 20 U/L (15-37) Alanine Aminotransferase (ALT/SGPT) 20 U/L (14-59) Alkaline Phosphatase 92 U/L (46-116) Troponin I Quantitative < 0.017 ng/mL (0.000-0.055) < 0.017 ng/mL (0.000-0.055) AF-Ndl-V-Type Natriuretic Peptide 736 pg/mL (0-124) Total Protein 7.9 g/dL (6.4-8.2) Albumin 3.6 g/dL (3.4-5.0) Albumin/Globulin Ratio 0.8 (1.0-1.7) Glucose (Fingerstick) 171 mg/dL (70-99) Urine Collection Type Unknown Urine Color Yellow Urine Clarity Clear Urine pH 5.0 Urine Specific [place] >=1.030 Urine Protein 30 mg/dL (NEG-TRACE) Urine Glucose (UA) Negative mg/dL (NEG) Urine Ketones (Stick) Negative mg/dL (NEG) Urine Blood Negative (NEG) Urine Nitrite Negative (NEG) Urine Bilirubin Small (NEG) Urine Urobilinogen Dipstick 0.2 mg/dL (0.2 mg/dL) Urine Leukocyte Esterase Negative (NEG) Urine RBC 1-2 /HPF (0-2) Urine WBC 1-4 /HPF (0-4) Urine Squamous Epithelial Cells Many /LPF Urine Bacteria Many /HPF (0-FEW) Urine Mucus Marked /LPF Urine Opiates Screen Pos (NEG) Urine Methadone Screen Neg (NEG) Urine Barbiturates Neg (NEG) Urine Phencyclidine Screen Neg (NEG) Urine Amphetamine/Methamphetamine Neg (NEG) Urine Benzodiazepines Screen Neg (NEG) Urine Cocaine Screen Neg (NEG) Urine Cannabinoids Screen Neg (NEG) Urine Ethyl Alcohol Neg (NEG) Test 11/12/18 07:33 Glucose (Fingerstick) 144 mg/dL (70-99) Medications Current Medications Aspirin (Jahaira Aspirin) 325 mg 1X ONCE PO ; Start 11/11/18 at 17:00; Stop 11/11/18 at 17:08; Status DC Ondansetron HCl (Zofran) 4 mg 1X ONCE IV Last administered on 11/11/18at 17:58; Start 11/11/18 at 17:15; Stop 11/11/18 at 17:16; Status DC Fentanyl Citrate (Fentanyl 2ml Vial) 50 mcg 1X ONCE IV Last administered on 11/11/18at 17:58; Start 11/11/18 at 17:15; Stop 11/11/18 at 17:16; Status DC Aspirin (Children'S Aspirin) 162 mg 1X ONCE PO Last administered on 11/11/18at 18:00; Start 11/11/18 at 18:00; Stop 11/11/18 at 18:02; Status DC Iohexol (Omnipaque 350 Mg/ml) 100 ml 1X ONCE IV Last administered on 11/11/18at 18:25; Start 11/11/18 at 18:30; Stop 11/11/18 at 18:31; Status DC Info (CONTRAST GIVEN -- Rx MONITORING) 1 each PRN DAILY PRN MC SEE COMMENTS; Start 11/11/18 at 18:30; Stop 11/13/18 at 18:29 Ondansetron HCl (Zofran) 4 mg PRN Q8HRS PRN IV NAUSEA/VOMITING; Start 11/11/18 at 18:30; Stop 11/12/18 at 18:29 Fentanyl Citrate (Fentanyl 2ml Vial) 50 mcg PRN Q1HR PRN IV PAIN; Start 11/11/18 at 18:30; Stop 11/12/18 at 18:29 Acetaminophen (Tylenol) 650 mg PRN Q4HRS PRN PO FEVER; Start 11/11/18 at 18:30; Stop 11/12/18 at 18:29 Aspirin (Ecotrin) 81 mg DAILY PO Last administered on 11/12/18at 08:50; Start 11/12/18 at 09:00 Atorvastatin Calcium (Lipitor) 20 mg HS PO Last administered on 11/11/18at 20:46; Start 11/11/18 at 21:00 Calcium/Vitamin D (Oscal D 500mg/ 200uts) 1 tab DAILY PO Last administered on 11/12/18 08:50; Start 11/12/18 at 09:00 Capsaicin (Zostrix) 1 tre PRN TID PRN TP TOPICAL PAIN Last administered on 11/12/18 08:50; Start 11/11/18 at 20:00 Clonazepam (KlonoPIN) 0.5 mg TID PO Last administered on 11/12/18 08:50; Start 11/11/18 at 21:00 Clopidogrel Bisulfate (Plavix) 75 mg DAILYWBKFT PO Last administered on 11/12/18 08:50; Start 11/12/18 at 08:00 Famotidine (Pepcid) 20 mg BID PO Last administered on 11/12/18 08:50; Start 11/11/18 at 21:00 Fluoxetine HCl (PROzac) 20 mg DAILY PO Last administered on 11/12/18 08:50; Start 11/12/18 at 09:00 Furosemide (Lasix) 80 mg BID92 PO Last administered on 11/12/18 08:50; Start 11/12/18 at 09:00 Glimepiride (Amaryl) 2 mg DAILY PO Last administered on 11/12/18 08:50; Start 11/12/18 at 09:00 Metoprolol Tartrate (Lopressor) 25 mg BID PO Last administered on 11/12/18 08:50; Start 11/11/18 at 21:00 Nitroglycerin (Nitrostat) 0.4 mg PRN Q5MIN PRN SL CHEST PAIN; Start 11/11/18 at 20:00 Oxycodone/ Acetaminophen (Percocet 10/325) 2 tab PRN Q4HRS PRN PO SEVERE PAIN Last administered on 11/12/18at 05:50; Start 11/11/18 at 20:00 Zolpidem Tartrate (Ambien) 5 mg QHS PO Last administered on 11/11/18at 20:46; Start 11/11/18 at 21:00 Insulin Human Lispro (HumaLOG) 0-5 UNITS TIDWMEALS SQ ; Start 11/12/18 at 08:00 Dextrose (Dextrose 50%-Water Syringe) 12.5 gm PRN Q15MIN PRN IV SEE COMMENTS; Start 11/11/18 at 20:00 Dextrose 250 ml PRN Q15MIN PRN IV SEE COMMENTS; Start 11/11/18 at 20:00; Status UNV Active Scripts Active Clopidogrel (Clopidogrel Bisulfate) 75 Mg Tablet 75 Mg PO DAILYWBKFT Percocet 10-325 Mg Tablet (Oxycodone/Acetaminophen) 1 Each Tablet 2 Tab PO PRN Q4-6HRS PRN MDD 1 Ondansetron Odt (Ondansetron) 4 Mg Tab.rapdis 1 Tab PO PRN Q6-8HRS Zofran (Ondansetron Hcl) 4 Mg Tablet 1 Tab PO PRN Q6-8HRS Proair Hfa Inhaler (Albuterol Sulfate) 8.5 Gm Hfa.aer.ad 1 Puff INH PRN Q6HRS PRN Amaryl (Glimepiride) 2 Mg Tablet 2 Mg PO DAILY 30 Days Reported Metolazone 5 Mg Tablet 5 Mg PO MOWEFR Metoprolol Tartrate 25 Mg Tablet 25 Mg PO BID Capsaicin 60 Gm Cream..g. 60 Gm TP PRN TID apply to morgan feet Calcium 500 + Vit D 200 Caplet (Calcium Carbonate/Vitamin D3) 1 Each Tablet 1 Each PO DAILY Zolpidem Tartrate 5 Mg Tablet 5 Mg PO QHS Clonazepam 0.5 Mg Tablet 0.5 Mg PO TID Fluoxetine Hcl 20 Mg Capsule 1 Cap PO DAILY Famotidine 20 Mg Tablet 20 Mg PO BID Furosemide 80 Mg Tablet 80 Mg PO BID Albuterol Sulfate Conc Neb Soln (Albuterol Sulfate) 2.5 Mg/0.5 Ml Vial.neb 5 Mg NEB PRN PRN NITROGLYCERIN SubLingual (Nitroglycerin) 0.4 Mg Tab.subl 0.4 Mg SL PRN Q5MIN PRN Atorvastatin Calcium 20 Mg Tablet 20 Mg PO HS Aspir 81 (Aspirin) 81 Mg Tablet. 1 Tab PO DAILY Vitals/I & O Vital Sign - Last 24 Hours 11/11/18 11/11/18 11/11/18 11/11/18 16:17 17:00 17:30 17:58 Temp 98.1 98.1 Pulse 82 74 60 Resp 12 22 16 20 B/P (MAP) 169/71 (103) 168/78 (108) 185/87 (119) Pulse Ox 100 98 98 O2 Delivery Room Air Room Air Room Air 11/11/18 11/11/18 11/11/18 11/11/18 18:00 19:15 20:46 20:46 Temp 98.1 98.1 Pulse 66 61 61 Resp 17 19 B/P (MAP) 162/81 (108) 180/73 (108) 180/73 Pulse Ox 98 97 O2 Delivery Room Air Room Air Room Air 8/2111/11/18 11/11/18 11/12/18 23:13 23:52 23:52 01:32 Temp 98.0 98.0 Pulse 60 Resp 19 B/P (MAP) 146/64 (91) Pulse Ox 97 O2 Delivery Room Air Room Air Nasal Cannula Nasal Cannula O2 Flow Rate 2.0 11/12/18 11/12/18 11/12/18 11/12/18 03:36 05:06 05:50 07:00 Temp 98.1 98.1 98.1 98.1 Pulse 60 63 Resp 17 17 B/P (MAP) 141/61 (87) 146/67 (93) Pulse Ox 98 97 O2 Delivery Room Air Nasal Cannula Nasal Cannula Room Air O2 Flow Rate 2.0 2.0 11/12/18 11/12/18 08:00 08:50 Pulse 65 O2 Delivery Room Air Intake and Output 11/11/18 11/11/18 11/12/18 14:59 22:59 06:59 Intake Total 500 ml Output Total 50 ml Balance 450 ml JHON ZAPIEN MD Nov 12, 2018 10:26
[2018-11-12] MEDS ORDERED: ALBUTEROL SULFATE 5 MG NEB PRN (10:30)
[2018-11-12] MEDS ORDERED: NON FORMULARY ITEM (Ondansetron Hcl (Zofran) 1 TAB) PO SCH (10:30)
[2018-11-12] MEDS ORDERED: ONDANSETRON ODT 4 MG TAB.RAPDIS. PO PRN (10:30)
[2018-11-12] MEDS ORDERED: ALBUTEROL SULFATE 2.5 MG/3 ML NEBU. NEB PRN (10:30)
[2018-11-12 10:57] VITALS: BP 153/66
--- NOTE | 2018-11-12 11:41 | NUR ---
SS following for discharge planning. SS reviewed pt chart. Pt has had frequent admissions and a history of non-compliance with services. Pt is a high risk readmission risk. Pt is from home with family and is currently requiring oxygen. Pt has oxygen at home. Pt has had previous services in the past with [facility], ; fax [phone]. SS will continue to follow for discharge planning.
[2018-11-12 15:00] VITALS: BP 135/61
--- NOTE | 2018-11-12 16:21 | PDOC3 ---
Discharge Summary Date of Admission: Nov 11, 2018 Date of Discharge: Nov 12, 2018 Follow-Up: 3-5 days Admitting Diagnosis comment: discharge dx Chest pain, stable angina acute heart failure. Akinetic distal anterior wall and the entire apical wall with ejection fraction estimated at 40%.per cath 05/12 admitted. cvc bed serial enzymes, serial EKGs, echocardiogram, consult Cardiology, cardiac monitoring, DVT prophylaxis, home meds, full code. Vitals Vitals Vital Signs Date Time Temp Pulse Resp B/P (MAP) Pulse Ox O2 Delivery O2 Flow Rate FiO2 11/12/18 08:50 65 11/12/18 08:00 Room Air 11/12/18 07:00 98.1 17 146/67 (93) 97 98.1 11/12/18 05:50 2.0 Physical Exam Physical Exam GENERAL: No apparent distress. Alert and oriented. HEENT: Head is normocephalic, atraumatic, pupils were equally round and reactive to light and accommodation. NECK: Supple, no JVD, no thyromegaly was noted. LUNGS: Clear to auscultation in all lung tripp without rhonchi or wheezing. HEART: RRR, S1, S2 present. Peripheral pulses intact, no obvious murmurs were noted. ABDOMEN: Soft, nontender. Positive bowel sounds no organomegaly, normal bowel sounds. EXTREMITIES: Without any cyanosis, clubbing, or edema. Pedal pulses intact, Homans sign is negative. NEUROLOGIC: Normal speech, normal tone. A & O x3, moves all extremities, no obvious focal deficits. PSYCHIATRIC: Normal affect, normal mood. Stable. SKIN: No ulcerations or rashes, good skin turgor, no jaundice. VASCULAR: Good capillary refill, neurovascular bundle appears to be intact. General: Alert, Oriented X3, Cooperative Heart: Regular rate Lungs: Clear, Crackles Abdomen: Normal bowel sounds, Soft Extremities: No cyanosis Labs LABS PAST MEDICAL HISTORY: Multiple admissions for loneliness, angina, CAD, CHF, COPD, diabetes, hypertension, myocardial infarction, cholecystectomy, bypass surgery, hysterectomy, knee replacement, pacemaker, cardiac stents. ALLERGIES: IBUPROFEN. FAMILY HISTORY: Coronary artery disease. SOCIAL HISTORY: She does not drink. She quit smoking, no drugs. She lives at home alone, but her granddaughter is there, sometimes. Technologist: Suze Lewis, RT (R) Nurse: patti hua RN Procedure(s) performed: Left heart catheterization, selective coronary angiography, selective angiography of the bypass grafts and left ventriculography Moderate sedation: 28 minutes INDICATION The indication(s) include : unstable angina . CSHA Clinical Frailty Scale [facility] Clinical Frailty Scale: Managing Well Heart Failure Heart Failure: Yes If Yes, Newly Diagnosed: No If Yes, HF Type: Systolic If Yes, NYHA Class: Class III PROCEDURE NARRATIVE After explaining the risks, benefits and alternative options, informed consent was obtained from patient. Patient was brought to the cardiac Billing Clinician and her right groin prepped and draped in the usual fashion. 20 mL of 2% lidocaine was infiltrated into the skin and subcutaneous tissues for local anesthesia. Arterial access was obtained in the right common femoral artery and a 6 Nigerien sheath was inserted. 6 Nigerien JL4 and 6 Nigerien JR4 catheters placed to perform selective angiography of the left and right coronary arteries. The 6 Nigerien JR4 catheter was then used to perform selective angiography of the saphenous vein graft to the obtuse marginal branch and the left internal mammary artery graft to the left anterior descending artery. Finally, a 6 Nigerien pigtail catheter was used to perform left ventriculography. Patient tolerated the procedure well. Hemostasis was achieved using Angio-Seal. There were no immediate complications. The following findings were noted. FINDINGS 1. Hemodynamics: Left ventricular end-diastolic pressure 20 mmHg. No pullback gradient across the aortic valve. 2. Left ventriculography: Akinetic distal anterior wall and the entire apical wall with ejection fraction estimated at 40%. No significant mitral regurgitation was seen. 3. Coronary and bypass graft angiography: a. The left main coronary artery arose from the left sinus of Valsalva, gave rise to the left anterior descending and left circumflex arteries and did not show any significant stenosis. b. The left anterior descending artery did not show any significant stenosis. c. The left circumflex artery showed 40% stenosis involving the proximal segment of the obtuse marginal branch. d. The right coronary artery was a large and dominant vessel arising from the right sinus of Valsalva that did not show any significant stenosis. e. The saphenous vein graft to the obtuse marginal branch was widely patent. d. The left internal mammary artery graft to the left anterior descending artery was patent. Conclusion 1. 40% stenosis involving the obtuse marginal branch of left circumflex artery without any other significant stenoses. The left internal mammary artery graft to the left anterior descending artery and the saphenous vein graft to the obtuse marginal branch were patent. Of note, patient seems to have had CABG for thrombus in left main coronary artery and left anterior descending artery in the past. No lesions were noted because the thrombus resolved. 2. Akinetic distal anterior wall and the entire apical wall with ejection fraction estimated at 40%. Recommendations Medical Therapy Signed by : Roger Aggarwal, Electronically Approved : 05/18/2018 12:25:07 Brief Hospital Course Ms. Laguna is a 63 old [sex] who presented with [ chest pain] CONDITION AT DISCHARGE: Improved Discharge Medications Current Medications Aspirin (Jahaira Aspirin) 325 mg 1X ONCE PO ; Start 11/11/18 at 17:00; Stop 11/11/18 at 17:08; Status DC Ondansetron HCl (Zofran) 4 mg 1X ONCE IV Last administered on 11/11/18at 17:58; Start 11/11/18 at 17:15; Stop 11/11/18 at 17:16; Status DC Fentanyl Citrate (Fentanyl 2ml Vial) 50 mcg 1X ONCE IV Last administered on 11/11/18at 17:58; Start 11/11/18 at 17:15; Stop 11/11/18 at 17:16; Status DC Aspirin (Children'S Aspirin) 162 mg 1X ONCE PO Last administered on 11/11/18at 18:00; Start 11/11/18 at 18:00; Stop 11/11/18 at 18:02; Status DC Iohexol (Omnipaque 350 Mg/ml) 100 ml 1X ONCE IV Last administered on 11/11/18at 18:25; Start 11/11/18 at 18:30; Stop 11/11/18 at 18:31; Status DC Info (CONTRAST GIVEN -- Rx MONITORING) 1 each PRN DAILY PRN MC SEE COMMENTS; Start 11/11/18 at 18:30; Stop 11/13/18 at 18:29 Ondansetron HCl (Zofran) 4 mg PRN Q8HRS PRN IV NAUSEA/VOMITING; Start 11/11/18 at 18:30; Stop 11/12/18 at 18:29 Fentanyl Citrate (Fentanyl 2ml Vial) 50 mcg PRN Q1HR PRN IV PAIN; Start 11/11/18 at 18:30; Stop 11/12/18 at 18:29 Acetaminophen (Tylenol) 650 mg PRN Q4HRS PRN PO FEVER; Start 11/11/18 at 18:30; Stop 11/12/18 at 18:29 Aspirin (Ecotrin) 81 mg DAILY PO Last administered on 11/12/18 08:50; Start 11/12/18 at 09:00 Atorvastatin Calcium (Lipitor) 20 mg HS PO Last administered on 11/11/18 20:46; Start 11/11/18 at 21:00 Calcium/Vitamin D (Oscal D 500mg/ 200uts) 1 tab DAILY PO Last administered on 11/12/18 08:50; Start 11/12/18 at 09:00 Capsaicin (Zostrix) 1 tre PRN TID PRN TP TOPICAL PAIN Last administered on 11/12/18 08:50; Start 11/11/18 at 20:00 Clonazepam (KlonoPIN) 0.5 mg TID PO Last administered on 11/12/18 14:06; Start 11/11/18 at 21:00 Clopidogrel Bisulfate (Plavix) 75 mg DAILYWBKFT PO Last administered on 11/12/18 08:50; Start 11/12/18 at 08:00 Famotidine (Pepcid) 20 mg BID PO Last administered on 11/12/18 08:50; Start 11/11/18 at 21:00 Fluoxetine HCl (PROzac) 20 mg DAILY PO Last administered on 11/12/18 08:50; Start 11/12/18 at 09:00 Furosemide (Lasix) 80 mg BID92 PO Last administered on 11/12/18 14:06; Start 11/12/18 at 09:00 Glimepiride (Amaryl) 2 mg DAILY PO Last administered on 11/12/18 08:50; Start 11/12/18 at 09:00 Metoprolol Tartrate (Lopressor) 25 mg BID PO Last administered on 11/12/18 08:50; Start 11/11/18 at 21:00 Nitroglycerin (Nitrostat) 0.4 mg PRN Q5MIN PRN SL CHEST PAIN; Start 11/11/18 at 20:00 Oxycodone/ Acetaminophen (Percocet 10/325) 2 tab PRN Q4HRS PRN PO SEVERE PAIN Last administered on 11/12/18at 15:29; Start 11/11/18 at 20:00 Zolpidem Tartrate (Ambien) 5 mg QHS PO Last administered on 11/11/18at 20:46; Start 11/11/18 at 21:00 Insulin Human Lispro (HumaLOG) 0-5 UNITS TIDWMEALS SQ Last administered on 11/12/18at 12:33; Start 11/12/18 at 08:00 Dextrose (Dextrose 50%-Water Syringe) 12.5 gm PRN Q15MIN PRN IV SEE COMMENTS; Start 11/11/18 at 20:00 Dextrose 250 ml PRN Q15MIN PRN IV SEE COMMENTS; Start 11/11/18 at 20:00; Status UNV Albuterol Sulfate (Ventolin Neb Soln) 2.5 mg PRN Q6HRS PRN NEB SHORTNESS OF BREATH; Start 11/12/18 at 10:30 Ondansetron HCl (Zofran Odt) 4 mg PRN Q4HRS PRN PO NAUSEA/VOMITING; Start 11/12/18 at 10:30 Non-Formulary Medication (Albuterol Sulfate (Albuterol Sulfate Conc Neb Soln)) 5 mg PRN PRN NEB WHEEZING; Start 11/12/18 at 10:30; Status UNV Metolazone (Zaroxolyn) 5 mg MoWeFr@0900 PO ; Start 11/13/18 at 09:00 Non-Formulary Medication (Ondansetron Hcl (Zofran)) 1 tab PRN Q6-8HRS PO ; Start 11/12/18 at 10:30; Status UNV Active Scripts Active Clopidogrel (Clopidogrel Bisulfate) 75 Mg Tablet 75 Mg PO DAILYWBKFT Percocet 10-325 Mg Tablet (Oxycodone/Acetaminophen) 1 Each Tablet 2 Tab PO PRN Q4-6HRS PRN MDD 1 Ondansetron Odt (Ondansetron) 4 Mg Tab.rapdis 1 Tab PO PRN Q6-8HRS Zofran (Ondansetron Hcl) 4 Mg Tablet 1 Tab PO PRN Q6-8HRS Proair Hfa Inhaler (Albuterol Sulfate) 8.5 Gm Hfa.aer.ad 1 Puff INH PRN Q6HRS PRN Amaryl (Glimepiride) 2 Mg Tablet 2 Mg PO DAILY 30 Days Reported Metolazone 5 Mg Tablet 5 Mg PO MOWEFR Metoprolol Tartrate 25 Mg Tablet 25 Mg PO BID Capsaicin 60 Gm Cream..g. 60 Gm TP PRN TID apply to morgan feet Calcium 500 + Vit D 200 Caplet (Calcium Carbonate/Vitamin D3) 1 Each Tablet 1 Each PO DAILY Zolpidem Tartrate 5 Mg Tablet 5 Mg PO QHS Clonazepam 0.5 Mg Tablet 0.5 Mg PO TID Fluoxetine Hcl 20 Mg Capsule 1 Cap PO DAILY Famotidine 20 Mg Tablet 20 Mg PO BID Furosemide 80 Mg Tablet 80 Mg PO BID Albuterol Sulfate Conc Neb Soln (Albuterol Sulfate) 2.5 Mg/0.5 Ml Vial.neb 5 Mg NEB PRN PRN NITROGLYCERIN SubLingual (Nitroglycerin) 0.4 Mg Tab.subl 0.4 Mg SL PRN Q5MIN PRN Atorvastatin Calcium 20 Mg Tablet 20 Mg PO HS Aspir 81 (Aspirin) 81 Mg Tablet.dr 1 Tab PO DAILY Vital Signs Vital Signs Date Time Temp Pulse Resp B/P (MAP) Pulse Ox O2 Delivery O2 Flow Rate FiO2 11/12/18 15:00 98.0 60 18 135/61 (85) 93 Room Air 98.0 11/12/18 05:50 2.0 Labs Laboratory Tests Test 11/11/18 17:08 11/11/18 20:57 11/11/18 21:10 11/12/18 05:10 White Blood Count 9.7 x10^3/uL (4.0-11.0) Red Blood Count 4.45 x10^6/uL (3.50-5.40) Hemoglobin 11.7 g/dL (12.0-15.5) Hematocrit 35.4 % (36.0-47.0) Mean Corpuscular Volume 80 fL (79-100) Mean Corpuscular Hemoglobin 26 pg (25-35) Mean Corpuscular Hemoglobin Concent 33 g/dL (31-37) Red Cell Distribution Width 16.7 % (11.5-14.5) Platelet Count 421 x10^3/uL (140-400) Neutrophils (%) (Auto) 74 % (31-73) Lymphocytes (%) (Auto) 16 % (24-48) Monocytes (%) (Auto) 9 % (0-9) Eosinophils (%) (Auto) 1 % (0-3) Basophils (%) (Auto) 1 % (0-3) Neutrophils # (Auto) 7.1 x10^3/uL (1.8-7.7) Lymphocytes # (Auto) 1.5 x10^3/uL (1.0-4.8) Monocytes # (Auto) 0.9 x10^3/uL (0.0-1.1) Eosinophils # (Auto) 0.0 x10^3/uL (0.0-0.7) Basophils # (Auto) 0.1 x10^3/uL (0.0-0.2) Prothrombin Time 13.2 SEC (11.7-14.0) Prothromb Time International Ratio 1.0 (0.8-1.1) D-Dimer (Anila) 0.60 ug/mlFEU (0.00-0.50) Sodium Level 142 mmol/L (136-145) Potassium Level 4.4 mmol/L (3.5-5.1) Chloride Level 103 mmol/L (98-107) Carbon Dioxide Level 31 mmol/L (21-32) Anion Gap 8 (6-14) Blood Urea Nitrogen 10 mg/dL (7-20) Creatinine 0.7 mg/dL (0.6-1.0) Estimated GFR (Cockcroft-Gault) 101.9 BUN/Creatinine Ratio 14 (6-20) Glucose Level 119 mg/dL (70-99) Calcium Level 10.3 mg/dL (8.5-10.1) Total Bilirubin 0.3 mg/dL (0.2-1.0) Aspartate Amino Transf (AST/SGOT) 20 U/L (15-37) Alanine Aminotransferase (ALT/SGPT) 20 U/L (14-59) Alkaline Phosphatase 92 U/L (46-116) Troponin I Quantitative < 0.017 ng/mL (0.000-0.055) < 0.017 ng/mL (0.000-0.055) BT-Qja-X-Type Natriuretic Peptide 736 pg/mL (0-124) Total Protein 7.9 g/dL (6.4-8.2) Albumin 3.6 g/dL (3.4-5.0) Albumin/Globulin Ratio 0.8 (1.0-1.7) Glucose (Fingerstick) 171 mg/dL (70-99) Urine Collection Type Unknown Urine Color Yellow Urine Clarity Clear Urine pH 5.0 Urine Specific [place] >=1.030 Urine Protein 30 mg/dL (NEG-TRACE) Urine Glucose (UA) Negative mg/dL (NEG) Urine Ketones (Stick) Negative mg/dL (NEG) Urine Blood Negative (NEG) Urine Nitrite Negative (NEG) Urine Bilirubin Small (NEG) Urine Urobilinogen Dipstick 0.2 mg/dL (0.2 mg/dL) Urine Leukocyte Esterase Negative (NEG) Urine RBC 1-2 /HPF (0-2) Urine WBC 1-4 /HPF (0-4) Urine Squamous Epithelial Cells Many /LPF Urine Bacteria Many /HPF (0-FEW) Urine Mucus Marked /LPF Urine Opiates Screen Pos (NEG) Urine Methadone Screen Neg (NEG) Urine Barbiturates Neg (NEG) Urine Phencyclidine Screen Neg (NEG) Urine Amphetamine/Methamphetamine Neg (NEG) Urine Benzodiazepines Screen Neg (NEG) Urine Cocaine Screen Neg (NEG) Urine Cannabinoids Screen Neg (NEG) Urine Ethyl Alcohol Neg (NEG) Test 11/12/18 07:33 11/12/18 11:50 Glucose (Fingerstick) 144 mg/dL (70-99) 155 mg/dL (70-99) Laboratory Tests Test 11/11/18 17:08 11/11/18 20:57 11/11/18 21:10 11/12/18 05:10 White Blood Count 9.7 x10^3/uL (4.0-11.0) Red Blood Count 4.45 x10^6/uL (3.50-5.40) Hemoglobin 11.7 g/dL (12.0-15.5) Hematocrit 35.4 % (36.0-47.0) Mean Corpuscular Volume 80 fL (79-100) Mean Corpuscular Hemoglobin 26 pg (25-35) Mean Corpuscular Hemoglobin Concent 33 g/dL (31-37) Red Cell Distribution Width 16.7 % (11.5-14.5) Platelet Count 421 x10^3/uL (140-400) Neutrophils (%) (Auto) 74 % (31-73) Lymphocytes (%) (Auto) 16 % (24-48) Monocytes (%) (Auto) 9 % (0-9) Eosinophils (%) (Auto) 1 % (0-3) Basophils (%) (Auto) 1 % (0-3) Neutrophils # (Auto) 7.1 x10^3/uL (1.8-7.7) Lymphocytes # (Auto) 1.5 x10^3/uL (1.0-4.8) Monocytes # (Auto) 0.9 x10^3/uL (0.0-1.1) Eosinophils # (Auto) 0.0 x10^3/uL (0.0-0.7) Basophils # (Auto) 0.1 x10^3/uL (0.0-0.2) Prothrombin Time 13.2 SEC (11.7-14.0) Prothromb Time International Ratio 1.0 (0.8-1.1) D-Dimer (Anila) 0.60 ug/mlFEU (0.00-0.50) Sodium Level 142 mmol/L (136-145) Potassium Level 4.4 mmol/L (3.5-5.1) Chloride Level 103 mmol/L (98-107) Carbon Dioxide Level 31 mmol/L (21-32) Anion Gap 8 (6-14) Blood Urea Nitrogen 10 mg/dL (7-20) Creatinine 0.7 mg/dL (0.6-1.0) Estimated GFR (Cockcroft-Gault) 101.9 BUN/Creatinine Ratio 14 (6-20) Glucose Level 119 mg/dL (70-99) Calcium Level 10.3 mg/dL (8.5-10.1) Total Bilirubin 0.3 mg/dL (0.2-1.0) Aspartate Amino Transf (AST/SGOT) 20 U/L (15-37) Alanine Aminotransferase (ALT/SGPT) 20 U/L (14-59) Alkaline Phosphatase 92 U/L (46-116) Troponin I Quantitative < 0.017 ng/mL (0.000-0.055) < 0.017 ng/mL (0.000-0.055) HO-Djz-S-Type Natriuretic Peptide 736 pg/mL (0-124) Total Protein 7.9 g/dL (6.4-8.2) Albumin 3.6 g/dL (3.4-5.0) Albumin/Globulin Ratio 0.8 (1.0-1.7) Glucose (Fingerstick) 171 mg/dL (70-99) Urine Collection Type Unknown Urine Color Yellow Urine Clarity Clear Urine pH 5.0 Urine Specific [place] >=1.030 Urine Protein 30 mg/dL (NEG-TRACE) Urine Glucose (UA) Negative mg/dL (NEG) Urine Ketones (Stick) Negative mg/dL (NEG) Urine Blood Negative (NEG) Urine Nitrite Negative (NEG) Urine Bilirubin Small (NEG) Urine Urobilinogen Dipstick 0.2 mg/dL (0.2 mg/dL) Urine Leukocyte Esterase Negative (NEG) Urine RBC 1-2 /HPF (0-2) Urine WBC 1-4 /HPF (0-4) Urine Squamous Epithelial Cells Many /LPF Urine Bacteria Many /HPF (0-FEW) Urine Mucus Marked /LPF Urine Opiates Screen Pos (NEG) Urine Methadone Screen Neg (NEG) Urine Barbiturates Neg (NEG) Urine Phencyclidine Screen Neg (NEG) Urine Amphetamine/Methamphetamine Neg (NEG) Urine Benzodiazepines Screen Neg (NEG) Urine Cocaine Screen Neg (NEG) Urine Cannabinoids Screen Neg (NEG) Urine Ethyl Alcohol Neg (NEG) Test 11/12/18 07:33 11/12/18 11:50 Glucose (Fingerstick) 144 mg/dL (70-99) 155 mg/dL (70-99) Allergies Allergies Coded Allergies Type Severity Reaction Last Updated Verified ibuprofen Adverse Reaction Intermediate Nausea and Vomiting 12/02/17 Yes Disposition/Orders: D/C to Home Patient Instructions d/c planning 32 min JHON ZAPIEN MD Nov 12, 2018 16:21
--- NOTE | 2018-11-12 16:32 | DISCH ---
DISCHARGE INSTRUCTIONS Condition on Discharge Condition on Discharge: Stable Activity After Discharge Activity Instructions for Disc: Activity as tolerated Lifting Instructions after Dis: No heavy lifting, No pulling or pushing Exercise Instruction after Dis: Walk 10 min, 3 x per day, Progress as tolerated Driving Instructions after Dis: Do not drive today Weight Bearing Status after Di: As tolerated Diet after Discharge Diet after Discharge: Cardiac, Diabetic No Calorie Level Diet Texture: Regular Liquid Texture: Thin Liquid Swallowing Supervision: None needed Wound Incision Care Wound/Incision Care: No wound care needed Wound Care Equipment: Sutures/gucci Checks after Discharge Checks after discharge: Check blood sugar, ac/hs, Weigh Yourself Daily Contacting the DR. after DC Call your doctor for: Concerns you may have Treatment/Equipment after DC Adaptive Equipment Issued: None Discharge Respiratory Equipmen: Oxygen JHON ZAPIEN MD Nov 12, 2018 16:32
--- NOTE | 2018-11-12 20:01 | NUR ---
Discharge Note: GRETCHEN BONILLA [address] Discharge instructions and discharge home medications reviewed with Patient and a copy given. All questions have been answered and understanding verbalized. Discontinued line Patient discharged to home with granddaughter.
[2018-11-13] MEDS ORDERED: metOLazone 2.5 MG TABLET PO SCH (09:00)
== END 2018-11-12 20:19 | disposition home or self-care (01) | DRG 293 ==
LOC: ER 16:17 → 2 SOUTH 18:19
PROVIDERS: ADMIT Internal Medicine; ATTEND Internal Medicine
DX: I11.0 Hypertensive heart disease with heart failure (principal); E11.40 Type 2 diabetes mellitus with diabetic neuropathy, unspecified; I25.110 Atherosclerotic heart disease of native coronary artery with unstable angina pectoris; E78.00 Pure hypercholesterolemia, unspecified; I50.9 Heart failure, unspecified; J44.9 Chronic obstructive pulmonary disease, unspecified; K21.9 Gastro-esophageal reflux disease without esophagitis; Z96.659 Presence of unspecified artificial knee joint; F32.9 Major depressive disorder, single episode, unspecified; F41.9 Anxiety disorder, unspecified; G89.29 Other chronic pain; I25.2 Old myocardial infarction; Z82.49 Family history of ischemic heart disease and other diseases of the circulatory system; Z87.891 Personal history of nicotine dependence; Z90.710 Acquired absence of both cervix and uterus; Z95.1 Presence of aortocoronary bypass graft; Z95.5 Presence of coronary angioplasty implant and graft
CPT/HCPCS: 36415; 71046; 71275; 80053; 80307; 81001; 82962; 83880; 84484; 85025; 85379; 85610; 87086; 93005; 96374; 96375; J1815; J2405; J3010; Q9967; 99285-25; G0378

== ENCOUNTER 2018-12-04 18:28 | Inpatient (IN) | payer OTHER ==
[~2018-12-04] VITALS: Ht 162.6 cm; Wt 103.6 kg
[~2018-12-04 18:28] MED LIST changes: +CLON-77 PO; -CLON0.5T11 PO
[2018-12-04] MEDS ORDERED: ONDANSETRON PF 4 MG/2 ML VIAL. IV ONE (18:45)
[2018-12-04] MEDS ORDERED: ASPIRIN CHEWABLE 81 MG TABLET. PO ONE (18:45)
[2018-12-04] MEDS: MORPHINE SULFATE 2 MG/ML VIAL. IV/SQ PRN ×2 (18:48→20:14)
--- NOTE | 2018-12-04 19:02 | PHYS DOC ---
Past Medical History Past Medical History: COPD, Diabetes-Type II, GERD, High Cholesterol, Hypertension, [place], Other Additional Past Medical Histor: O2 @3 L PRN, chronic pain, NEUROPATHY Past Surgical History: Angioplasty, Cholecystectomy, Hysterectomy, Knee Replacement, Pacemaker, Other Additional Past Surgical Histo: STENTS, CABG, HERNIA REPAIR, BREAST REDUCTION Alcohol Use: None Drug Use: None Adult General Chief Complaint Chief Complaint: CHEST PAIN HPI HPI Patient is a 63-year-old female who presents with one-day history of chest pain and shortness of breath. She states that symptoms started yesterday morning. She states that she has noticed a small weight gain over the last couple of days that she thinks maybe water weight. She does report some swelling around her ankles. She states the shortness of breath and chest pain is worsened with exertion. She states the chest pain radiates into her left shoulder blade. She reports nausea but is had no vomiting. She denies any diaphoresis. She states that nothing is improving her symptoms.[] Review of Systems Review of Systems Constitutional: Denies fever or chills [] Respiratory: Complains of shortness of breath [] Cardiovascular: No additional information not addressed in HPI [] GI: Denies abdominal pain. Admits to nausea without vomiting or diarrhea [] Integument: Denies rash or skin lesions [] Neurologic: Denies headache, focal weakness or sensory changes [] All other systems were reviewed and found to be within normal limits, except as documented in this note. Current Medications Current Medications Current Medications Medications (Trade) Dose Ordered Sig/[facility] Start Time Stop Time Status Last Admin Dose Admin Aspirin (Children'S Aspirin) 162 mg 1X ONCE 12/04/18 18:45 12/04/18 18:46 DC 12/04/18 18:49 162 MG Morphine Sulfate (Morphine Sulfate) 2 mg PRN Q15MIN PRN 12/04/18 18:45 12/05/18 00:00 DC 12/04/18 20:14 2 MG Ondansetron HCl (Zofran) 4 mg 1X ONCE 12/04/18 18:45 12/04/18 18:46 DC 12/04/18 18:49 4 MG Allergies Allergies Allergies Coded Allergies Type Severity Reaction Last Updated Verified ibuprofen Adverse Reaction Intermediate Nausea and Vomiting 12/02/17 Yes Physical Exam Physical Exam Constitutional: Well developed, well nourished, no acute distress, non-toxic appearance. [] HENT: Normocephalic, atraumatic, bilateral external ears normal, oropharynx moist, no oral exudates, nose normal. [] Eyes: PERRLA, EOMI, conjunctiva normal, no discharge. [] Neck: Normal range of motion, no tenderness, supple, no stridor. [] Cardiovascular: Regular rate and rhythm[] Lungs & Thorax: Bilateral breath sounds clear to auscultation [] Abdomen: Bowel sounds normal, soft, no tenderness. [] Skin: Warm, dry, no erythema, no rash. [] Extremities: No tenderness, no cyanosis, no clubbing, ROM intact, with mild nonpitting edema. [] Neurologic: Alert and oriented X 3, no focal deficits noted. [] Current Patient Data Vital Signs Vital Signs Date Time Temp Pulse Resp B/P (MAP) Pulse Ox O2 Delivery O2 Flow Rate FiO2 12/04/18 20:14 16 95 Room Air 12/04/18 20:00 60 164/77 (106) 12/04/18 18:30 99.1 99.1 Lab Values Laboratory Tests Test 12/04/18 19:00 White Blood Count 8.9 x10^3/uL (4.0-11.0) Red Blood Count 4.26 x10^6/uL (3.50-5.40) Hemoglobin 10.7 g/dL (12.0-15.5) L Hematocrit 33.8 % (36.0-47.0) L Mean Corpuscular Volume 79 fL (79-100) Mean Corpuscular Hemoglobin 25 pg (25-35) Mean Corpuscular Hemoglobin Concent 32 g/dL (31-37) Red Cell Distribution Width 17.4 % (11.5-14.5) H Platelet Count 338 x10^3/uL (140-400) Neutrophils (%) (Auto) 76 % (31-73) H Lymphocytes (%) (Auto) 14 % (24-48) L Monocytes (%) (Auto) 9 % (0-9) Eosinophils (%) (Auto) 1 % (0-3) Basophils (%) (Auto) 0 % (0-3) Neutrophils # (Auto) 6.8 x10^3/uL (1.8-7.7) Lymphocytes # (Auto) 1.2 x10^3/uL (1.0-4.8) Monocytes # (Auto) 0.8 x10^3/uL (0.0-1.1) Eosinophils # (Auto) 0.1 x10^3/uL (0.0-0.7) Basophils # (Auto) 0.0 x10^3/uL (0.0-0.2) Sodium Level 141 mmol/L (136-145) Potassium Level 3.5 mmol/L (3.5-5.1) Chloride Level 100 mmol/L (98-107) Carbon Dioxide Level 35 mmol/L (21-32) H Anion Gap 6 (6-14) Blood Urea Nitrogen 12 mg/dL (7-20) Creatinine 0.8 mg/dL (0.6-1.0) Estimated GFR (Cockcroft-Gault) 87.4 BUN/Creatinine Ratio 15 (6-20) Glucose Level 101 mg/dL (70-99) H Calcium Level 10.1 mg/dL (8.5-10.1) Magnesium Level 2.2 mg/dL (1.8-2.4) Total Bilirubin 0.4 mg/dL (0.2-1.0) Aspartate Amino Transferase (AST) 15 U/L (15-37) Alanine Aminotransferase (ALT) 19 U/L (14-59) Alkaline Phosphatase 94 U/L (46-116) Troponin I Quantitative < 0.017 ng/mL (0.000-0.055) MW-Kib-R-Type Natriuretic Peptide 1333 pg/mL (0-124) H Total Protein 8.1 g/dL (6.4-8.2) Albumin 3.2 g/dL (3.4-5.0) L Albumin/Globulin Ratio 0.7 (1.0-1.7) L Lipase 92 U/L (73-393) Laboratory Tests 12/04/18 19:00 Laboratory Tests 12/04/18 19:00 EKG EKG [] Interpretation Time: EKG demonstrates a sinus rhythm with rate of 62. No significant change from prior EKG dated November 112018. Radiology/Procedures Radiology/Procedures [] Course & Med Decision Making Course & Med Decision Making Pertinent Labs and Imaging studies reviewed. (See chart for details) [] Dragon Disclaimer Dragon Disclaimer This electronic medical record was generated, in whole or in part, using a voice recognition dictation system. Departure Departure Impression: Primary Impression: Chest pain Additional Impression: Shortness of breath Disposition: ADMITTED INPATIENT Admitting Physician: MAGNUS (Dr. Keen) Condition: IMPROVED Referrals: JENSEN CUEVAS (PCP) Problem Qualifiers Primary Impression: Chest pain Chest pain type: unspecified Qualified Codes: R07.9 - Chest pain, unspecified INDERJIT CANALES Jr. DO Dec 04, 2018 19:02
[2018-12-04 19:20] LABS: BASO % 0 % (0-3); EOS # 0.1 x10^3/uL (0.0-0.7); EOS % 1 % (0-3); HEMATOCRIT 33.8 % (36.0-47.0); HEMOGLOBIN 10.7 g/dL (12.0-15.5); LYMPH # 1.2 x10^3/uL (1.0-4.8); LYMPH % 14 % (24-48); MEAN CORPUSCULAR HEMOGLOBIN 25 pg (25-35); MEAN CORPUSCULAR HGB CONC 32 g/dL (31-37); MEAN CORPUSCULAR VOLUME 79 fL (79-100); MONO # 0.8 x10^3/uL (0.0-1.1); MONO % 9 % (0-9); NEUT # 6.8 x10^3/uL (1.8-7.7); NEUT % 76 % (31-73); PLATELET COUNT 338 x10^3/uL (140-400); RED BLOOD COUNT 4.26 x10^6/uL (3.50-5.40); RED CELL DISTRIBUTION WIDTH 17.4 % (11.5-14.5); WHITE BLOOD COUNT 8.9 x10^3/uL (4.0-11.0)
[2018-12-04 19:31] LABS: CALCIUM 10.1 mg/dL (8.5-10.1); CREATININE 0.8 mg/dL (0.6-1.0); GFR 87.4; POTASSIUM 3.5 mmol/L (3.5-5.1)
[2018-12-04 19:36] LABS: ALBUMIN 3.2 g/dL (3.4-5.0); ALBUMIN/GLOBULIN RATIO 0.7 (1.0-1.7); MAGNESIUM 2.2 mg/dL (1.8-2.4); TOTAL BILIRUBIN 0.4 mg/dL (0.2-1.0); TOTAL PROTEIN 8.1 g/dL (6.4-8.2)
--- NOTE | 2018-12-04 22:11 | RAD ---
AP portable chest radiograph 12/04/2018 Clinical History: Chest pain. An AP erect portable digital radiograph of the chest was obtained. Comparison study is dated 11/11/2018. The patient is post median sternotomy. A pacemaker is unchanged position. The cardiac silhouette is mildly enlarged. Atherosclerotic calcification thoracic aorta is seen. Thoracic aorta is mildly tortuous. No acute pulmonary infiltrate is seen. No pleural effusion or pneumothorax is noted. The osseous structures are unchanged. IMPRESSION: No acute abnormality is seen. Electronically signed by: Joseph Moss MD (12/04/2018 10:08 PM) [facility]
[2018-12-04] MEDS ORDERED: ONDANSETRON PF 4 MG/2 ML VIAL. IV PRN (22:30)
[2018-12-05] VITALS (9 sets, daily range): BP systolic 112–158; BP diastolic 42–61
[2018-12-05] MEDS ORDERED: SPIR25TA5 PO (01:14)
[2018-12-05] MEDS ORDERED: CAPSAICIN 0.025% TOPICAL CREAM 60GM TUBE. TP PRN (01:15)
[2018-12-05] MEDS ORDERED: ALBUTEROL SULFATE 2.5 MG/3 ML NEBU. INH PRN (01:15)
[2018-12-05] MEDS ORDERED: NITROGLYCERIN SUBLINGUAL 0.4 MG BOTTLE OF 25. SL PRN (01:15)
[2018-12-05] MEDS ORDERED: ALBUTEROL SULFATE 5 MG NEB PRN (01:15)
[2018-12-05] MEDS ORDERED: DOCU100C28 PO (01:16)
[2018-12-05] MEDS: MORPHINE SULFATE 2 MG/ML VIAL. IV PRN ×2 (01:22→03:56)
[2018-12-05 04:18] LABS: BASO % 0 % (0-3); EOS # 0.1 x10^3/uL (0.0-0.7); EOS % 1 % (0-3); HEMATOCRIT 32.5 % (36.0-47.0); HEMOGLOBIN 10.4 g/dL (12.0-15.5); LYMPH # 1.3 x10^3/uL (1.0-4.8); LYMPH % 14 % (24-48); MEAN CORPUSCULAR HEMOGLOBIN 26 pg (25-35); MEAN CORPUSCULAR HGB CONC 32 g/dL (31-37); MEAN CORPUSCULAR VOLUME 80 fL (79-100); MONO # 0.8 x10^3/uL (0.0-1.1); MONO % 9 % (0-9); NEUT # 7.4 x10^3/uL (1.8-7.7); NEUT % 77 % (31-73); PLATELET COUNT 328 x10^3/uL (140-400); RED BLOOD COUNT 4.06 x10^6/uL (3.50-5.40); RED CELL DISTRIBUTION WIDTH 17.5 % (11.5-14.5); WHITE BLOOD COUNT 9.6 x10^3/uL (4.0-11.0)
[2018-12-05 04:34] LABS: CALCIUM 9.9 mg/dL (8.5-10.1); CREATININE 0.9 mg/dL (0.6-1.0); GFR 76.3; POTASSIUM 3.4 mmol/L (3.5-5.1)
--- NOTE | 2018-12-05 07:10 | PDOC1 ---
History and Physical Date of Admission Date of Admission DATE: 12/05/18 TIME: 07:09 Identification/Chief Complaint Chief Complaint seen in er , 63-year-old female who presents with one-day history of chest pain and shortness of breath. She states that symptoms started yesterday morning. She states that she has noticed a small weight gain over the last couple of days that she thinks maybe water weight. She does report some swelling around her ankles. states the shortness of breath and chest pain is worsened with exertion. states the chest pain radiates into her left shoulder blade. ///admit weight now down 3 kg in 24 hrs Past Medical History Past Medical History Past Medical History Past Medical History Past Medical History: COPD, Diabetes-Type II, GERD, High Cholesterol, Hypertension, MT, Other Additional Past Medical Histor: O2 @3 L PRN, chronic pain, NEUROPATHY Past Surgical History: Angioplasty, Cholecystectomy, Hysterectomy, Knee Repl acement, Pacemaker, Other Additional Past Surgical Histo: STENTS, CABG, HERNIA REPAIR, BREAST REDUCTION Alcohol Use: None Drug Use: None fhx obesity PAST MEDICAL HISTORY: Multiple admissions for loneliness, angina, CAD, CHF, COPD, diabetes, hypertension, myocardial infarction, cholecystectomy, bypass surgery, hysterectomy, knee replacement, pacemaker, cardiac stents. ALLERGIES: IBUPROFEN. FAMILY HISTORY: Coronary artery disease. SOCIAL HISTORY: She does not drink. She quit smoking, no drugs. She lives at home alone, but her granddaughter is there, sometimes. Technologist: Suze Lewis, RT (R) Nurse: patti hua RN Procedure(s) performed: Left heart catheterization, selective coronary angiography, selective angiography of the bypass grafts and left ventriculography Moderate sedation: 28 minutes INDICATION The indication(s) include : unstable angina . [facility] Clinical Frailty Scale [facility] Clinical Frailty Scale: Managing Well Heart Failure Heart Failure: Yes If Yes, Newly Diagnosed: No If Yes, HF Type: Systolic If Yes, NYHA Class: Class III PROCEDURE NARRATIVE After explaining the risks, benefits and alternative options, informed consent was obtained from patient. Patient was brought to the cardiac Manager Of Case Management and her right groin prepped and draped in the usual fashion. 20 mL of 2% lidocaine was infiltrated into the skin and subcutaneous tissues for local anesthesia. Arterial access was obtained in the right common femoral artery and a 6 Ghanaian sheath was inserted. 6 Ghanaian JL4 and 6 Ghanaian JR4 catheters placed to perform selective angiography of the left and right coronary arteries. The 6 Ghanaian JR4 catheter was then used to perform selective angiography of the saphenous vein graft to the obtuse marginal branch and the left internal mammary artery graft to the left anterior descending artery. Finally, a 6 Ghanaian pigtail catheter was used to perform left ventriculography. Patient tolerated the procedure well. Hemostasis was achieved using Angio-Seal. There were no immediate complications. The following findings were noted. FINDINGS 1. Hemodynamics: Left ventricular end-diastolic pressure 20 mmHg. No pullback gradient across the aortic valve. 2. Left ventriculography: Akinetic distal anterior wall and the entire apical wall with ejection fraction estimated at 40%. No significant mitral regurgitation was seen. 3. Coronary and bypass graft angiography: a. The left main coronary artery arose from the left sinus of Valsalva, gave rise to the left anterior descending and left circumflex arteries and did not show any significant stenosis. b. The left anterior descending artery did not show any significant stenosis. c. The left circumflex artery showed 40% stenosis involving the proximal segment of the obtuse marginal branch. d. The right coronary artery was a large and dominant vessel arising from the r ight sinus of Valsalva that did not show any significant stenosis. e. The saphenous vein graft to the obtuse marginal branch was widely patent. d. The left internal mammary artery graft to the left anterior descending artery was patent. Conclusion 1. 40% stenosis involving the obtuse marginal branch of left circumflex artery without any other significant stenoses. The left internal mammary artery graft to the left anterior descending artery and the saphenous vein graft to the obtuse marginal branch were patent. Of note, patient seems to have had CABG for thrombus in left main coronary artery and left anterior descending artery in the past. No lesions were noted because the thrombus resolved. 2. Akinetic distal anterior wall and the entire apical wall with ejection fraction estimated at 40%. Recommendations Medical Therapy Signed by : Roger Aggarwal, Electronically Approved : 05/18/2018 12:25:07 Cardiovascular: CAD, CHF, HTN, MT, Hyperlipidemia, Other Pulmonary: COPD CENTRAL NERVOUS SYSTEM: Periperal neuropathy GI: GERD Heme/Onc: No pertinent hx Hepatobiliary: Cholelithiasis Psych: No pertinent hx Musculoskeletal: Osteoarthritis, Weakness Rheumatologic: No pertinent hx Infectious disease: No pertinent hx Renal/: Chronic renal insuff Endocrine: Diabetes Past Surgical History Past Surgical History: Pacemaker, Appendectomy, Cholecystectomy, Total knee replacement, Hysterectomy Family History Family History: No Significant, Diabetes, Heart Disease Family History: Parent Social History Smoke: No ALCOHOL: none Drugs: None Current Problem List Problem List Problems Medical Problems: (1) Shortness of breath Status: Acute Current Medications Current Medications Current Medications Aspirin (Children'S Aspirin) 162 mg 1X ONCE PO Last administered on 12/04/18at 18:49; Start 12/04/18 at 18:45; Stop 12/04/18 at 18:46; Status DC Morphine Sulfate (Morphine Sulfate) 2 mg PRN Q15MIN PRN IV/SQ PAIN GREATER THAN 3/10 Last administered on 12/04/18at 20:14; Start 12/04/18 at 18:45; Stop 12/05/18 at 00:00; Status DC Ondansetron HCl (Zofran) 4 mg 1X ONCE IV Last administered on 12/04/18at 18:49; Start 12/04/18 at 18:45; Stop 12/04/18 at 18:46; Status DC Ondansetron HCl (Zofran) 4 mg PRN Q8HRS PRN IV NAUSEA/VOMITING 1ST CHOICE; Start 12/04/18 at 22:30; Stop 12/05/18 at 22:29 Morphine Sulfate (Morphine Sulfate) 2 mg PRN Q2HR PRN IV SEVERE PAIN 7-10 Last administered on 12/05/18at 03:56; Start 12/04/18 at 22:30; Stop 12/05/18 at 22:29 Albuterol/ Ipratropium (Duoneb) 3 ml RTQID NEB ; Start 12/05/18 at 08:00; Stop 12/06/18 at 07:59 Albuterol Sulfate (Ventolin Neb Soln) 2.5 mg PRN Q6HRS PRN INH SHORTNESS OF BREATH; Start 12/05/18 at 01:15 Aspirin (Ecotrin) 81 mg DAILY PO ; Start 12/05/18 at 09:00 Atorvastatin Calcium (Lipitor) 20 mg HS PO ; Start 12/05/18 at 21:00 Calcium/Vitamin D (Oscal D 500mg/ 200uts) 1 tab DAILY PO ; Start 12/05/18 at 09:00 Capsaicin (Zostrix) 1 tre PRN TID PRN TP TOPICAL PAIN; Start 12/05/18 at 01:15 Clonazepam (KlonoPIN) 0.5 mg TID PO ; Start 12/05/18 at 09:00 Clopidogrel Bisulfate (Plavix) 75 mg DAILYWBKFT PO ; Start 12/05/18 at 08:00 Famotidine (Pepcid) 20 mg BID PO ; Start 12/05/18 at 09:00 Fluoxetine HCl (PROzac) 20 mg DAILY PO ; Start 12/05/18 at 09:00 Furosemide (Lasix) 80 mg BID92 PO ; Start 12/05/18 at 09:00 Glimepiride (Amaryl) 2 mg DAILY PO ; Start 12/05/18 at 09:00 Metoprolol Tartrate (Lopressor) 25 mg BID PO ; Start 12/05/18 at 09:00 Nitroglycerin (Nitrostat) 0.4 mg PRN Q5MIN PRN SL CHEST PAIN; Start 12/05/18 at 01:15 Zolpidem Tartrate (Ambien) 5 mg QHS PO ; Start 12/05/18 at 21:00 Spironolactone (Aldactone) 25 mg BID PO ; Start 12/05/18 at 09:00 Non-Formulary Medication (Albuterol Sulfate (Albuterol Sulfate Conc Neb Soln)) 5 mg PRN PRN NEB WHEEZING; Start 12/05/18 at 01:15; Status UNV Docusate Sodium (Colace) 100 mg BID PO ; Start 12/05/18 at 09:00 Active Scripts Active Clopidogrel (Clopidogrel Bisulfate) 75 Mg Tablet 75 Mg PO DAILYWBKFT Percocet 10-325 Mg Tablet (Oxycodone/Acetaminophen) 1 Each Tablet 2 Tab PO PRN Q4-6HRS PRN MDD 1 Ondansetron Odt (Ondansetron) 4 Mg Tab.rapdis 1 Tab PO PRN Q6-8HRS Zofran (Ondansetron Hcl) 4 Mg Tablet 1 Tab PO PRN Q6-8HRS Proair Hfa Inhaler (Albuterol Sulfate) 8.5 Gm Hfa.aer.ad 1 Puff INH PRN Q6HRS PRN Amaryl (Glimepiride) 2 Mg Tablet 2 Mg PO DAILY 30 Days Reported Docusate Sodium 100 Mg Capsule 1 Cap PO BID Spironolactone 25 Mg Tablet 25 Mg PO BID Metolazone 5 Mg Tablet 5 Mg PO MOWEFR Metoprolol Tartrate 25 Mg Tablet 25 Mg PO BID Capsaicin 60 Gm Cream..g. 60 Gm TP PRN TID apply to morgan feet Calcium 500 + Vit D 200 Caplet (Calcium Carbonate/Vitamin D3) 1 Each Tablet 1 Each PO DAILY Zolpidem Tartrate 5 Mg Tablet 5 Mg PO QHS Clonazepam (Clonazepam) 0.5 Mg Tablet 0.5 Mg PO TID Fluoxetine Hcl 20 Mg Capsule 1 Cap PO DAILY Famotidine 20 Mg Tablet 20 Mg PO BID Furosemide 80 Mg Tablet 80 Mg PO BID Albuterol Sulfate Conc Neb Soln (Albuterol Sulfate) 2.5 Mg/0.5 Ml Vial.neb 5 Mg NEB PRN PRN NITROGLYCERIN SubLingual (Nitroglycerin) 0.4 Mg Tab.subl 0.4 Mg SL PRN Q5MIN PRN Atorvastatin Calcium 20 Mg Tablet 20 Mg PO HS Aspir 81 (Aspirin) 81 Mg Tablet.dr 1 Tab PO DAILY Allergies Allergies: Coded Allergies: ibuprofen (Verified Adverse Reaction, Intermediate, Nausea and Vomiting, 12/02/17) ROS Review of System Review of Systems Review of Systems Constitutional: Denies fever or chills [] Respiratory: Complains of shortness of breath [] Cardiovascular: No additional information not addressed in HPI [] GI: Denies abdominal pain. Admits to nausea without vomiting or diarrhea [] Integument: Denies rash or skin lesions [] Neurologic: Denies headache, focal weakness or sensory changes [] 14 pt systems were reviewed and found to be within normal limits, except as documented General: YES: Fatigue Hematological and Lymphatic: No: Bleeding Problems, Blood Clots, Blood Transfusions, Brusing, Night Sweats, Pallor, Swollen Lymph Nodes, Other Cardiovascular: yes Chest Pain, yes Orthopnea Musculoskeletal: Yes Joint Swelling Skin: No Dry Skin, No Eczema, No Hair Changes, No Lumps, No Mole Changes, No Mottling, No Nail Changes, No Pruritus, No Rash, No Skin Lesion Changes, No Other, No Acne Physical Exam Physical Exam Physical Exam Physical Exam Constitutional: Well developed, well nourished, no acute distress, non-toxic appearance. [] HENT: Normocephalic, atraumatic, bilateral external ears normal, oropharynx moist, no oral exudates, nose normal. [] Eyes: PERRLA, EOMI, conjunctiva normal, no discharge. [] Neck: Normal range of motion, no tenderness, supple, no stridor. [] Cardiovascular: Regular rate and rhythm[] Lungs & Thorax: Bilateral breath sounds clear to auscultation [] Abdomen: Bowel sounds normal, soft, no tenderness. [] Skin: Warm, dry, no erythema, no rash. [] Extremities: No tenderness, no cyanosis, no clubbing, ROM intact, with mild nonpitting edema. [] Neurologic: Alert and oriented X 3, no focal deficits noted. [] General: Alert, Oriented X3, Cooperative, No acute distress HEENT: Atraumatic, EOMI Heart: no thrills, no jug vein distention Breasts: Not examined Abdomen: Normal bowel sounds, Soft Rectal Exam: not examined Extremities: No cyanosis Skin: No breakdown Neuro: Normal speech, Cranial nerves 3-12 NL Psych/Mental Status: Mental status NL, Mood NL Vitals Vitals Vital Signs Date Time Temp Pulse Resp B/P (MAP) Pulse Ox O2 Delivery O2 Flow Rate FiO2 12/05/18 03:26 Room Air 12/05/18 03:16 98.7 72 18 155/46 (82) 96 98.7 Labs Labs Laboratory Tests Test 12/04/18 19:00 12/05/18 02:00 12/05/18 04:00 White Blood Count 8.9 x10^3/uL (4.0-11.0) 9.6 x10^3/uL (4.0-11.0) Red Blood Count 4.26 x10^6/uL (3.50-5.40) 4.06 x10^6/uL (3.50-5.40) Hemoglobin 10.7 g/dL (12.0-15.5) 10.4 g/dL (12.0-15.5) Hematocrit 33.8 % (36.0-47.0) 32.5 % (36.0-47.0) Mean Corpuscular Volume 79 fL (79-100) 80 fL (79-100) Mean Corpuscular Hemoglobin 25 pg (25-35) 26 pg (25-35) Mean Corpuscular Hemoglobin Concent 32 g/dL (31-37) 32 g/dL (31-37) Red Cell Distribution Width 17.4 % (11.5-14.5) 17.5 % (11.5-14.5) Platelet Count 338 x10^3/uL (140-400) 328 x10^3/uL (140-400) Neutrophils (%) (Auto) 76 % (31-73) 77 % (31-73) Lymphocytes (%) (Auto) 14 % (24-48) 14 % (24-48) Monocytes (%) (Auto) 9 % (0-9) 9 % (0-9) Eosinophils (%) (Auto) 1 % (0-3) 1 % (0-3) Basophils (%) (Auto) 0 % (0-3) 0 % (0-3) Neutrophils # (Auto) 6.8 x10^3/uL (1.8-7.7) 7.4 x10^3/uL (1.8-7.7) Lymphocytes # (Auto) 1.2 x10^3/uL (1.0-4.8) 1.3 x10^3/uL (1.0-4.8) Monocytes # (Auto) 0.8 x10^3/uL (0.0-1.1) 0.8 x10^3/uL (0.0-1.1) Eosinophils # (Auto) 0.1 x10^3/uL (0.0-0.7) 0.1 x10^3/uL (0.0-0.7) Basophils # (Auto) 0.0 x10^3/uL (0.0-0.2) 0.0 x10^3/uL (0.0-0.2) Sodium Level 141 mmol/L (136-145) 141 mmol/L (136-145) Potassium Level 3.5 mmol/L (3.5-5.1) 3.4 mmol/L (3.5-5.1) Chloride Level 100 mmol/L (98-107) 101 mmol/L (98-107) Carbon Dioxide Level 35 mmol/L (21-32) 35 mmol/L (21-32) Anion Gap 6 (6-14) 5 (6-14) Blood Urea Nitrogen 12 mg/dL (7-20) 14 mg/dL (7-20) Creatinine 0.8 mg/dL (0.6-1.0) 0.9 mg/dL (0.6-1.0) Estimated GFR (Cockcroft-Gault) 87.4 76.3 BUN/Creatinine Ratio 15 (6-20) Glucose Level 101 mg/dL (70-99) 172 mg/dL (70-99) Calcium Level 10.1 mg/dL (8.5-10.1) 9.9 mg/dL (8.5-10.1) Magnesium Level 2.2 mg/dL (1.8-2.4) Total Bilirubin 0.4 mg/dL (0.2-1.0) Aspartate Amino Transf (AST/SGOT) 15 U/L (15-37) Alanine Aminotransferase (ALT/SGPT) 19 U/L (14-59) Alkaline Phosphatase 94 U/L (46-116) Troponin I Quantitative < 0.017 ng/mL (0.000-0.055) < 0.017 ng/mL (0.000-0.055) < 0.017 ng/mL (0.000-0.055) CS-Bqb-A-Type Natriuretic Peptide 1333 pg/mL (0-124) Total Protein 8.1 g/dL (6.4-8.2) Albumin 3.2 g/dL (3.4-5.0) Albumin/Globulin Ratio 0.7 (1.0-1.7) Lipase 92 U/L (73-393) Laboratory Tests Test 12/04/18 19:00 12/05/18 02:00 12/05/18 04:00 White Blood Count 8.9 x10^3/uL (4.0-11.0) 9.6 x10^3/uL (4.0-11.0) Red Blood Count 4.26 x10^6/uL (3.50-5.40) 4.06 x10^6/uL (3.50-5.40) Hemoglobin 10.7 g/dL (12.0-15.5) 10.4 g/dL (12.0-15.5) Hematocrit 33.8 % (36.0-47.0) 32.5 % (36.0-47.0) Mean Corpuscular Volume 79 fL (79-100) 80 fL (79-100) Mean Corpuscular Hemoglobin 25 pg (25-35) 26 pg (25-35) Mean Corpuscular Hemoglobin Concent 32 g/dL (31-37) 32 g/dL (31-37) Red Cell Distribution Width 17.4 % (11.5-14.5) 17.5 % (11.5-14.5) Platelet Count 338 x10^3/uL (140-400) 328 x10^3/uL (140-400) Neutrophils (%) (Auto) 76 % (31-73) 77 % (31-73) Lymphocytes (%) (Auto) 14 % (24-48) 14 % (24-48) Monocytes (%) (Auto) 9 % (0-9) 9 % (0-9) Eosinophils (%) (Auto) 1 % (0-3) 1 % (0-3) Basophils (%) (Auto) 0 % (0-3) 0 % (0-3) Neutrophils # (Auto) 6.8 x10^3/uL (1.8-7.7) 7.4 x10^3/uL (1.8-7.7) Lymphocytes # (Auto) 1.2 x10^3/uL (1.0-4.8) 1.3 x10^3/uL (1.0-4.8) Monocytes # (Auto) 0.8 x10^3/uL (0.0-1.1) 0.8 x10^3/uL (0.0-1.1) Eosinophils # (Auto) 0.1 x10^3/uL (0.0-0.7) 0.1 x10^3/uL (0.0-0.7) Basophils # (Auto) 0.0 x10^3/uL (0.0-0.2) 0.0 x10^3/uL (0.0-0.2) Sodium Level 141 mmol/L (136-145) 141 mmol/L (136-145) Potassium Level 3.5 mmol/L (3.5-5.1) 3.4 mmol/L (3.5-5.1) Chloride Level 100 mmol/L (98-107) 101 mmol/L (98-107) Carbon Dioxide Level 35 mmol/L (21-32) 35 mmol/L (21-32) Anion Gap 6 (6-14) 5 (6-14) Blood Urea Nitrogen 12 mg/dL (7-20) 14 mg/dL (7-20) Creatinine 0.8 mg/dL (0.6-1.0) 0.9 mg/dL (0.6-1.0) Estimated GFR (Cockcroft-Gault) 87.4 76.3 BUN/Creatinine Ratio 15 (6-20) Glucose Level 101 mg/dL (70-99) 172 mg/dL (70-99) Calcium Level 10.1 mg/dL (8.5-10.1) 9.9 mg/dL (8.5-10.1) Magnesium Level 2.2 mg/dL (1.8-2.4) Total Bilirubin 0.4 mg/dL (0.2-1.0) Aspartate Amino Transf (AST/SGOT) 15 U/L (15-37) Alanine Aminotransferase (ALT/SGPT) 19 U/L (14-59) Alkaline Phosphatase 94 U/L (46-116) Troponin I Quantitative < 0.017 ng/mL (0.000-0.055) < 0.017 ng/mL (0.000-0.055) < 0.017 ng/mL (0.000-0.055) ZZ-Ctl-D-Type Natriuretic Peptide 1333 pg/mL (0-124) Total Protein 8.1 g/dL (6.4-8.2) Albumin 3.2 g/dL (3.4-5.0) Albumin/Globulin Ratio 0.7 (1.0-1.7) Lipase 92 U/L (73-393) Images Images LEFT VENTRICLE The left ventricle is normal size. There is some mild apical dilatation. There appears to be mild concentric left ventricular hypertrophy. Left ventricle systolic function is normal. The Ejection Fraction is 50%. There is normal LV segmental wall motion. RIGHT VENTRICLE The right ventricle is normal size. The right ventricular systolic function is normal. ATRIA The left atrium appears normal in size. The right atrium appears normal in size. The interatrial septum is intact with no evidence for an atrial septal defect or patent foramen ovale as noted on 2-D or Doppler imaging. There is no thrombus noted in the left atrial appendage. AORTIC VALVE The aortic valve is normal in structure and function. The aortic valve is trileaflet. Doppler and Color Flow revealed no significant aortic regurgitation. MITRAL VALVE The mitral valve is normal in structure. Doppler and Color Flow revealed mild mitral regurgitation. TRICUSPID VALVE The tricuspid valve is normal in structure. Doppler and Color Flow revealed mild tricuspid regurgitation. PULMONIC VALVE The pulmonary valve is normal in structure and function. Doppler and Color Flow revealed no pulmonic valvular regurgitation. GREAT VESSELS The aortic root is normal in size. The ascending aorta is normal in size. There is calcifications of the ascending aorta Normal pulmonary venous flow (Doppler). The IVC was visualized and appears normal in size. PERICARDIAL EFFUSION There is no pleural effusion. Critical Notification Critical Value: No <Conclusion> The left ventricle is normal size. There is some mild apical dilatation. There appears to be mild concentric left ventricular hypertrophy. Left ventricle systolic function is normal. The Ejection Fraction is 50%. The left atrium appears normal in size. The right atrium appears normal in size. The aortic valve is normal in structure and function. The aortic valve is trileaflet. Doppler and Color Flow revealed mild mitral regurgitation. Doppler and Color Flow revealed mild tricuspid regurgitation. The pulmonary valve is normal in structure and function. The ascending aorta is normal in size. There is calcifications of the ascending aorta DICTATED and SIGNED BY: LIZBET LINDSAY MD DATE: 01/08/17 180 AP portable chest radiograph 12/04/2018 Clinical History: Chest pain. An AP erect portable digital radiograph of the chest was obtained. Comparison study is dated 11/11/2018. The patient is post median sternotomy. A pacemaker is unchanged position. The cardiac silhouette is mildly enlarged. Atherosclerotic calcification thoracic aorta is seen. Thoracic aorta is mildly tortuous. No acute pulmonary infiltrate is seen. No pleural effusion or pneumothorax is noted. The osseous structures are unchanged. IMPRESSION: No acute abnormality is seen. Electronically signed by: Joseph Moss MD (12/04/2018 10:08 PM) [facility] VTE Prophylaxis Ordered VTE Prophylaxis Devices: No VTE Pharmacological Prophylaxi: Yes Assessment/Plan Assessment/Plan impression Chest pain, stable angina acute heart failure. systolic Akinetic distal anterior wall and the entire apical wall with ejection fraction estimated at 40%.per cath 05/12 morbid obesity noncompliance with weight loss diet diabetes GERD CAD WITH HX STENTS admitted. tele bed serial enzymes, neg to date serial EKGs, echocardiogram, consult Cardiology, cardiac monitoring, DVT prophylaxis, home meds, full code. diuresis 57 min pt exam, chart review,> 50% of time spent with exam, chart review, pt care coordination JHON ZAPIEN MD Dec 05, 2018 07:10
[2018-12-05] MEDS: clonazePAM 0.5 MG TABLET PO SCH ×3 (08:30→21:09)
[2018-12-05] MEDS: CLOPIDOGREL BISULFATE 75 MG TABLET PO SCH (08:30)
[2018-12-05] MEDS: CALCIUM CARB/VIT D3 500/200 TABLET. PO SCH (08:30)
[2018-12-05] MEDS: FLUoxetine HCL 20 MG CAPSULE PO SCH (08:30)
[2018-12-05] MEDS: METOPROLOL TART IMMED RELEASE 25 MG TABLET. PO SCH ×2 (08:30→21:10)
[2018-12-05] MEDS: ASPIRIN ENTERIC COATED 81 MG TABLET.DR. PO SCH (08:30)
[2018-12-05] MEDS: FAMOTIDINE 20 MG TABLET. PO SCH ×2 (08:31→21:09)
[2018-12-05] MEDS: FUROSEMIDE 80 MG TABLET. PO SCH ×2 (08:31→13:40)
[2018-12-05] MEDS: SPIRONOLACTONE 25 MG TABLET PO SCH ×2 (08:31→21:09)
[2018-12-05] MEDS: DOCUSATE SODIUM 100 MG CAPSULE. PO SCH ×2 (08:31→21:09)
[2018-12-05] MEDS: GLIMEPIRIDE 2 MG TABLET. PO SCH (08:31)
--- NOTE | 2018-12-05 09:12 | EKG ---
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
[2018-12-05] MEDS: IPRATRPIUM/ALBUTEROL 0.5/2.5MG 3 ML NEBU. NEB SCH ×4 (09:16→20:46)
[2018-12-05] MEDS: oxyCODONE/APAP 10/325 1 TAB TABLET PO PRN ×3 (09:36→18:03)
[2018-12-05] MEDS ORDERED: ENOXAPARIN 40 MG/0.4 ML SYRINGE. SQ SCH (12:00)
--- NOTE | 2018-12-05 12:29 | PDOC2 ---
CONSULT Date of Consult Date of Consult DATE: 12/05/18 TIME: 12:29 Reason for Consult Reason for Consult: Chest pain Referring Physician Referring Physician: Dr. Moser Identification/Chief Complaint Chief Complaint Chest pain Source Source: Chart review, Patient History of Present Illness Reason for Visit: 63-year-old female presented complaining of right-sided chest pain that she described as pressure-like sensation associated with mild shortness of breath. She denied any exertional component to the chest pain. She stated that she had mild weight gain over the last few days. She denied any orthopnea/PND, palpitations or syncope. Past Medical History Cardiovascular: CAD, CHF, HTN, [place], Hyperlipidemia, Other Pulmonary: COPD CENTRAL NERVOUS SYSTEM: Periperal neuropathy GI: GERD Heme/Onc: No pertinent hx Hepatobiliary: Cholelithiasis Psych: No pertinent hx Musculoskeletal: Osteoarthritis, Weakness Rheumatologic: No pertinent hx Infectious disease: No pertinent hx Renal/: Chronic renal insuff Endocrine: Diabetes Past Surgical History Past Surgical History: Pacemaker, Appendectomy, Cholecystectomy, Total knee replacement, Hysterectomy Family History Family History: No Significant, Diabetes, Heart Disease Social History Social History: Parent No ALCOHOL: none Drugs: None Current Problem List Problem List Problems Medical Problems: (1) Shortness of breath Status: Acute Current Medications Current Medications Current Medications Aspirin (Children'S Aspirin) 162 mg 1X ONCE PO Last administered on 12/04/18at 18:49; Start 12/04/18 at 18:45; Stop 12/04/18 at 18:46; Status DC Morphine Sulfate (Morphine Sulfate) 2 mg PRN Q15MIN PRN IV/SQ PAIN GREATER THAN 3/10 Last administered on 12/04/18at 20:14; Start 12/04/18 at 18:45; Stop 12/05/18 at 00:00; Status DC Ondansetron HCl (Zofran) 4 mg 1X ONCE IV Last administered on 12/04/18at 18:49; Start 12/04/18 at 18:45; Stop 12/04/18 at 18:46; Status DC Ondansetron HCl (Zofran) 4 mg PRN Q8HRS PRN IV NAUSEA/VOMITING 1ST CHOICE; Start 12/04/18 at 22:30; Stop 12/05/18 at 22:29 Morphine Sulfate (Morphine Sulfate) 2 mg PRN Q2HR PRN IV SEVERE PAIN 7-10 Last administered on 12/05/18 03:56; Start 12/04/18 at 22:30; Stop 12/05/18 at 22:29 Albuterol/ Ipratropium (Duoneb) 3 ml RTQID NEB Last administered on 12/05/18 11:45; Start 12/05/18 at 08:00; Stop 12/06/18 at 07:59 Albuterol Sulfate (Ventolin Neb Soln) 2.5 mg PRN Q6HRS PRN INH SHORTNESS OF BREATH; Start 12/05/18 at 01:15 Aspirin (Ecotrin) 81 mg DAILY PO Last administered on 12/05/18 08:32; Start 12/05/18 at 09:00 Atorvastatin Calcium (Lipitor) 20 mg HS PO ; Start 12/05/18 at 21:00 Calcium/Vitamin D (Oscal D 500mg/ 200uts) 1 tab DAILY PO Last administered on 12/05/18 08:32; Start 12/05/18 at 09:00 Capsaicin (Zostrix) 1 tre PRN TID PRN TP TOPICAL PAIN; Start 12/05/18 at 01:15 Clonazepam (KlonoPIN) 0.5 mg TID PO Last administered on 12/05/18 08:32; Start 12/05/18 at 09:00 Clopidogrel Bisulfate (Plavix) 75 mg DAILYWBKFT PO Last administered on 12/05/18 08:32; Start 12/05/18 at 08:00 Famotidine (Pepcid) 20 mg BID PO Last administered on 12/05/18 08:32; Start 12/05/18 at 09:00 Fluoxetine HCl (PROzac) 20 mg DAILY PO Last administered on 12/05/18 08:32; Start 12/05/18 at 09:00 Furosemide (Lasix) 80 mg BID92 PO Last administered on 12/05/18 08:32; Start 12/05/18 at 09:00 Glimepiride (Amaryl) 2 mg DAILY PO Last administered on 12/05/18 08:32; Start 12/05/18 at 09:00 Metoprolol Tartrate (Lopressor) 25 mg BID PO Last administered on 12/05/18 08:32; Start 12/05/18 at 09:00 Nitroglycerin (Nitrostat) 0.4 mg PRN Q5MIN PRN SL CHEST PAIN; Start 12/05/18 at 01:15 Zolpidem Tartrate (Ambien) 5 mg QHS PO ; Start 12/05/18 at 21:00 Spironolactone (Aldactone) 25 mg BID PO Last administered on 12/05/18at 08:32; Start 12/05/18 at 09:00 Non-Formulary Medication (Albuterol Sulfate (Albuterol Sulfate Conc Neb Soln)) 5 mg PRN PRN NEB WHEEZING; Start 12/05/18 at 01:15; Status UNV Docusate Sodium (Colace) 100 mg BID PO Last administered on 12/05/18at 08:32; Start 12/05/18 at 09:00 Oxycodone/ Acetaminophen (Percocet 10/325) 2 tab PRN Q4HRS PRN PO MILD PAIN / TEMP Last administered on 12/05/18at 09:37; Start 12/05/18 at 08:45 Enoxaparin Sodium (Lovenox 40mg Syringe) 40 mg Q24H SQ ; Start 12/05/18 at 12:00; Stop 12/05/18 at 11:31; Status DC Enoxaparin Sodium (Lovenox 40mg Syringe) 40 mg Q24H SQ ; Start 12/05/18 at 14:00 Active Scripts Active Clopidogrel (Clopidogrel Bisulfate) 75 Mg Tablet 75 Mg PO DAILYWBKFT Percocet 10-325 Mg Tablet (Oxycodone/Acetaminophen) 1 Each Tablet 2 Tab PO PRN Q4-6HRS PRN MDD 1 Ondansetron Odt (Ondansetron) 4 Mg Tab.rapdis 1 Tab PO PRN Q6-8HRS Zofran (Ondansetron Hcl) 4 Mg Tablet 1 Tab PO PRN Q6-8HRS Proair Hfa Inhaler (Albuterol Sulfate) 8.5 Gm Hfa.aer.ad 1 Puff INH PRN Q6HRS PRN Amaryl (Glimepiride) 2 Mg Tablet 2 Mg PO DAILY 30 Days Reported Docusate Sodium 100 Mg Capsule 1 Cap PO BID Spironolactone 25 Mg Tablet 25 Mg PO BID Metolazone 5 Mg Tablet 5 Mg PO MOWEFR Metoprolol Tartrate 25 Mg Tablet 25 Mg PO BID Capsaicin 60 Gm Cream..g. 60 Gm TP PRN TID apply to morgan feet Calcium 500 + Vit D 200 Caplet (Calcium Carbonate/Vitamin D3) 1 Each Tablet 1 Each PO DAILY Zolpidem Tartrate 5 Mg Tablet 5 Mg PO QHS Clonazepam (Clonazepam) 0.5 Mg Tablet 0.5 Mg PO TID Fluoxetine Hcl 20 Mg Capsule 1 Cap PO DAILY Famotidine 20 Mg Tablet 20 Mg PO BID Furosemide 80 Mg Tablet 80 Mg PO BID Albuterol Sulfate Conc Neb Soln (Albuterol Sulfate) 2.5 Mg/0.5 Ml Vial.neb 5 Mg NEB PRN PRN NITROGLYCERIN SubLingual (Nitroglycerin) 0.4 Mg Tab.subl 0.4 Mg SL PRN Q5MIN PRN Atorvastatin Calcium 20 Mg Tablet 20 Mg PO HS Aspir 81 (Aspirin) 81 Mg Tablet.dr 1 Tab PO DAILY Allergies Allergies: Coded Allergies: ibuprofen (Verified Adverse Reaction, Intermediate, Nausea and Vomiting, 12/02/17) ROS PSYCHOLOGICAL ROS: No: Hallucinations Eyes: No Loss of vision HEENT: No: Epistaxis Respiratory: YES: Shortness of breath; No: Hemoptysis Cardiovascular: yes Chest Pain Gastrointestinal: No Vomiting, No Diarrhea Neurological: No Seizures Skin: No Rash Physical Exam General: Alert, Oriented X3 HEENT: Atraumatic, PERRLA Lungs: Clear to auscultation Heart: Regular rate Abdomen: Soft, No tenderness Extremities: No edema Psych/Mental Status: Mood NL Vitals VITALS Vital Signs Date Time Temp Pulse Resp B/P (MAP) Pulse Ox O2 Delivery O2 Flow Rate FiO2 12/05/18 11:46 95 Nasal Cannula 2.0 12/05/18 08:32 63 154/61 12/05/18 07:00 98.7 12 98.7 Labs Labs Laboratory Tests Test 12/04/18 19:00 12/05/18 02:00 12/05/18 04:00 12/05/18 07:29 White Blood Count 8.9 x10^3/uL (4.0-11.0) 9.6 x10^3/uL (4.0-11.0) Red Blood Count 4.26 x10^6/uL (3.50-5.40) 4.06 x10^6/uL (3.50-5.40) Hemoglobin 10.7 g/dL (12.0-15.5) 10.4 g/dL (12.0-15.5) Hematocrit 33.8 % (36.0-47.0) 32.5 % (36.0-47.0) Mean Corpuscular Volume 79 fL (79-100) 80 fL (79-100) Mean Corpuscular Hemoglobin 25 pg (25-35) 26 pg (25-35) Mean Corpuscular Hemoglobin Concent 32 g/dL (31-37) 32 g/dL (31-37) Red Cell Distribution Width 17.4 % (11.5-14.5) 17.5 % (11.5-14.5) Platelet Count 338 x10^3/uL (140-400) 328 x10^3/uL (140-400) Neutrophils (%) (Auto) 76 % (31-73) 77 % (31-73) Lymphocytes (%) (Auto) 14 % (24-48) 14 % (24-48) Monocytes (%) (Auto) 9 % (0-9) 9 % (0-9) Eosinophils (%) (Auto) 1 % (0-3) 1 % (0-3) Basophils (%) (Auto) 0 % (0-3) 0 % (0-3) Neutrophils # (Auto) 6.8 x10^3/uL (1.8-7.7) 7.4 x10^3/uL (1.8-7.7) Lymphocytes # (Auto) 1.2 x10^3/uL (1.0-4.8) 1.3 x10^3/uL (1.0-4.8) Monocytes # (Auto) 0.8 x10^3/uL (0.0-1.1) 0.8 x10^3/uL (0.0-1.1) Eosinophils # (Auto) 0.1 x10^3/uL (0.0-0.7) 0.1 x10^3/uL (0.0-0.7) Basophils # (Auto) 0.0 x10^3/uL (0.0-0.2) 0.0 x10^3/uL (0.0-0.2) Sodium Level 141 mmol/L (136-145) 141 mmol/L (136-145) Potassium Level 3.5 mmol/L (3.5-5.1) 3.4 mmol/L (3.5-5.1) Chloride Level 100 mmol/L (98-107) 101 mmol/L (98-107) Carbon Dioxide Level 35 mmol/L (21-32) 35 mmol/L (21-32) Anion Gap 6 (6-14) 5 (6-14) Blood Urea Nitrogen 12 mg/dL (7-20) 14 mg/dL (7-20) Creatinine 0.8 mg/dL (0.6-1.0) 0.9 mg/dL (0.6-1.0) Estimated GFR (Cockcroft-Gault) 87.4 76.3 BUN/Creatinine Ratio 15 (6-20) Glucose Level 101 mg/dL (70-99) 172 mg/dL (70-99) Calcium Level 10.1 mg/dL (8.5-10.1) 9.9 mg/dL (8.5-10.1) Magnesium Level 2.2 mg/dL (1.8-2.4) Total Bilirubin 0.4 mg/dL (0.2-1.0) Aspartate Amino Transf (AST/SGOT) 15 U/L (15-37) Alanine Aminotransferase (ALT/SGPT) 19 U/L (14-59) Alkaline Phosphatase 94 U/L (46-116) Troponin I Quantitative < 0.017 ng/mL (0.000-0.055) < 0.017 ng/mL (0.000-0.055) < 0.017 ng/mL (0.000-0.055) IL-Mzy-S-Type Natriuretic Peptide 1333 pg/mL (0-124) Total Protein 8.1 g/dL (6.4-8.2) Albumin 3.2 g/dL (3.4-5.0) Albumin/Globulin Ratio 0.7 (1.0-1.7) Lipase 92 U/L (73-393) Glucose (Fingerstick) 102 mg/dL (70-99) Laboratory Tests Test 12/04/18 19:00 12/05/18 02:00 12/05/18 04:00 12/05/18 07:29 White Blood Count 8.9 x10^3/uL (4.0-11.0) 9.6 x10^3/uL (4.0-11.0) Red Blood Count 4.26 x10^6/uL (3.50-5.40) 4.06 x10^6/uL (3.50-5.40) Hemoglobin 10.7 g/dL (12.0-15.5) 10.4 g/dL (12.0-15.5) Hematocrit 33.8 % (36.0-47.0) 32.5 % (36.0-47.0) Mean Corpuscular Volume 79 fL (79-100) 80 fL (79-100) Mean Corpuscular Hemoglobin 25 pg (25-35) 26 pg (25-35) Mean Corpuscular Hemoglobin Concent 32 g/dL (31-37) 32 g/dL (31-37) Red Cell Distribution Width 17.4 % (11.5-14.5) 17.5 % (11.5-14.5) Platelet Count 338 x10^3/uL (140-400) 328 x10^3/uL (140-400) Neutrophils (%) (Auto) 76 % (31-73) 77 % (31-73) Lymphocytes (%) (Auto) 14 % (24-48) 14 % (24-48) Monocytes (%) (Auto) 9 % (0-9) 9 % (0-9) Eosinophils (%) (Auto) 1 % (0-3) 1 % (0-3) Basophils (%) (Auto) 0 % (0-3) 0 % (0-3) Neutrophils # (Auto) 6.8 x10^3/uL (1.8-7.7) 7.4 x10^3/uL (1.8-7.7) Lymphocytes # (Auto) 1.2 x10^3/uL (1.0-4.8) 1.3 x10^3/uL (1.0-4.8) Monocytes # (Auto) 0.8 x10^3/uL (0.0-1.1) 0.8 x10^3/uL (0.0-1.1) Eosinophils # (Auto) 0.1 x10^3/uL (0.0-0.7) 0.1 x10^3/uL (0.0-0.7) Basophils # (Auto) 0.0 x10^3/uL (0.0-0.2) 0.0 x10^3/uL (0.0-0.2) Sodium Level 141 mmol/L (136-145) 141 mmol/L (136-145) Potassium Level 3.5 mmol/L (3.5-5.1) 3.4 mmol/L (3.5-5.1) Chloride Level 100 mmol/L (98-107) 101 mmol/L (98-107) Carbon Dioxide Level 35 mmol/L (21-32) 35 mmol/L (21-32) Anion Gap 6 (6-14) 5 (6-14) Blood Urea Nitrogen 12 mg/dL (7-20) 14 mg/dL (7-20) Creatinine 0.8 mg/dL (0.6-1.0) 0.9 mg/dL (0.6-1.0) Estimated GFR (Cockcroft-Gault) 87.4 76.3 BUN/Creatinine Ratio 15 (6-20) Glucose Level 101 mg/dL (70-99) 172 mg/dL (70-99) Calcium Level 10.1 mg/dL (8.5-10.1) 9.9 mg/dL (8.5-10.1) Magnesium Level 2.2 mg/dL (1.8-2.4) Total Bilirubin 0.4 mg/dL (0.2-1.0) Aspartate Amino Transf (AST/SGOT) 15 U/L (15-37) Alanine Aminotransferase (ALT/SGPT) 19 U/L (14-59) Alkaline Phosphatase 94 U/L (46-116) Troponin I Quantitative < 0.017 ng/mL (0.000-0.055) < 0.017 ng/mL (0.000-0.055) < 0.017 ng/mL (0.000-0.055) CC-Xfl-K-Type Natriuretic Peptide 1333 pg/mL (0-124) Total Protein 8.1 g/dL (6.4-8.2) Albumin 3.2 g/dL (3.4-5.0) Albumin/Globulin Ratio 0.7 (1.0-1.7) Lipase 92 U/L (73-393) Glucose (Fingerstick) 102 mg/dL (70-99) Assessment/Plan Assessment/Plan 1. Chest pain with atypical features. Patient has had recurrent admissions for similar chest pain. Myocardial infarction has been ruled out. Recent cardiac catheterization 04/2018 showed patent GARCIA to LAD and patent SVG to OM. Patient was thought to have CABG for thrombus of left main coronary artery that has since resolved. No lesions needing intervention were noted. Chest pain noncardiac and probably musculoskeletal. No further cardiac workup is indicated at this time. 2. Chronic diastolic heart failure: Slightly decompensated on admission but presently well compensated. Recent 2-D echo October 2018 showed LVEF 50-55%. Continue current medications including oral diuretics. 3. Hypertension: Controlled 4. SSS s/p PPM: Stable 5. Hyperlipidemia: Continue statin therapy 6. DM2: Treat per IM Thank you for your consultation MISBAH HUFFMAN MD Dec 05, 2018 12:29
[2018-12-05] MEDS: ENOXAPARIN 40 MG/0.4 ML SYRINGE. SQ SCH (13:43)
[2018-12-05] MEDS: ATORVASTATIN CALCIUM 20 MG TABLET PO SCH (21:09)
[2018-12-05] MEDS: ZOLPIDEM 5 MG TABLET. PO SCH (21:09)
[2018-12-06] MEDS: oxyCODONE/APAP 10/325 1 TAB TABLET PO PRN ×5 (02:34→21:17)
[2018-12-06 02:45] VITALS: BP 150/60
[2018-12-06 06:43] VITALS: BP 124/45
[2018-12-06] MEDS: IPRATRPIUM/ALBUTEROL 0.5/2.5MG 3 ML NEBU. NEB SCH ×4 (06:59→20:00)
--- NOTE | 2018-12-06 08:19 | PDOC ---
PROGRESS NOTES History of Present Illness History of Present Illness VTE Prophylaxis Ordered VTE Prophylaxis Devices: No VTE Pharmacological Prophylaxi: Yes DISCHARGE DX Assessment/Plan impression Chest pain, stable angina acute heart failure. systolic Akinetic distal anterior wall and the entire apical wall with ejection fraction estimated at 40%.per cath 05/12 morbid obesity noncompliance with weight loss diet diabetes GERD CAD WITH HX STENTS recent cardiac catheterization 04/2018 showed patent GARCIA to LAD and patent SVG to OM. . No further cardiac workup is indicated admitted. tele bed serial enzymes, neg to date serial EKGs, echocardiogram, consult Cardiology, cardiac monitoring, DVT prophylaxis, home meds, full code. diuresis LOW NA INTAKE NEEDED, discussed 27 min pt exam D/C PLANNING , chart review,> 50% of time spent with exam, chart review, pt care coordination Vitals Vitals Vital Signs Date Time Temp Pulse Resp B/P (MAP) Pulse Ox O2 Delivery O2 Flow Rate FiO2 12/06/18 07:00 96 Nasal Cannula 1.0 12/06/18 06:43 98.0 60 20 124/45 (71) 98.0 Physical Exam General: Alert, Oriented X3, Cooperative, No acute distress Heart: Regular rate Lungs: Clear, Crackles Abdomen: Normal bowel sounds, Soft, No tenderness Extremities: No cyanosis, No edema Skin: No breakdown Labs LABS Laboratory Tests Test 12/05/18 12:23 12/05/18 17:06 12/05/18 20:03 12/06/18 07:41 Glucose (Fingerstick) 169 mg/dL (70-99) 150 mg/dL (70-99) 165 mg/dL (70-99) 143 mg/dL (70-99) Assessment and Plan Assessmemt and Plan Problems Medical Problems: (1) Shortness of breath Status: Acute Comment Review of Relevant I have reviewed the following items nolan (where applicable) has been applied. Labs Laboratory Tests Test 12/04/18 19:00 12/05/18 02:00 12/05/18 04:00 12/05/18 07:29 White Blood Count 8.9 x10^3/uL (4.0-11.0) 9.6 x10^3/uL (4.0-11.0) Red Blood Count 4.26 x10^6/uL (3.50-5.40) 4.06 x10^6/uL (3.50-5.40) Hemoglobin 10.7 g/dL (12.0-15.5) 10.4 g/dL (12.0-15.5) Hematocrit 33.8 % (36.0-47.0) 32.5 % (36.0-47.0) Mean Corpuscular Volume 79 fL (79-100) 80 fL (79-100) Mean Corpuscular Hemoglobin 25 pg (25-35) 26 pg (25-35) Mean Corpuscular Hemoglobin Concent 32 g/dL (31-37) 32 g/dL (31-37) Red Cell Distribution Width 17.4 % (11.5-14.5) 17.5 % (11.5-14.5) Platelet Count 338 x10^3/uL (140-400) 328 x10^3/uL (140-400) Neutrophils (%) (Auto) 76 % (31-73) 77 % (31-73) Lymphocytes (%) (Auto) 14 % (24-48) 14 % (24-48) Monocytes (%) (Auto) 9 % (0-9) 9 % (0-9) Eosinophils (%) (Auto) 1 % (0-3) 1 % (0-3) Basophils (%) (Auto) 0 % (0-3) 0 % (0-3) Neutrophils # (Auto) 6.8 x10^3/uL (1.8-7.7) 7.4 x10^3/uL (1.8-7.7) Lymphocytes # (Auto) 1.2 x10^3/uL (1.0-4.8) 1.3 x10^3/uL (1.0-4.8) Monocytes # (Auto) 0.8 x10^3/uL (0.0-1.1) 0.8 x10^3/uL (0.0-1.1) Eosinophils # (Auto) 0.1 x10^3/uL (0.0-0.7) 0.1 x10^3/uL (0.0-0.7) Basophils # (Auto) 0.0 x10^3/uL (0.0-0.2) 0.0 x10^3/uL (0.0-0.2) Sodium Level 141 mmol/L (136-145) 141 mmol/L (136-145) Potassium Level 3.5 mmol/L (3.5-5.1) 3.4 mmol/L (3.5-5.1) Chloride Level 100 mmol/L (98-107) 101 mmol/L (98-107) Carbon Dioxide Level 35 mmol/L (21-32) 35 mmol/L (21-32) Anion Gap 6 (6-14) 5 (6-14) Blood Urea Nitrogen 12 mg/dL (7-20) 14 mg/dL (7-20) Creatinine 0.8 mg/dL (0.6-1.0) 0.9 mg/dL (0.6-1.0) Estimated GFR (Cockcroft-Gault) 87.4 76.3 BUN/Creatinine Ratio 15 (6-20) Glucose Level 101 mg/dL (70-99) 172 mg/dL (70-99) Calcium Level 10.1 mg/dL (8.5-10.1) 9.9 mg/dL (8.5-10.1) Magnesium Level 2.2 mg/dL (1.8-2.4) Total Bilirubin 0.4 mg/dL (0.2-1.0) Aspartate Amino Transf (AST/SGOT) 15 U/L (15-37) Alanine Aminotransferase (ALT/SGPT) 19 U/L (14-59) Alkaline Phosphatase 94 U/L (46-116) Troponin I Quantitative < 0.017 ng/mL (0.000-0.055) < 0.017 ng/mL (0.000-0.055) < 0.017 ng/mL (0.000-0.055) OI-Fzj-B-Type Natriuretic Peptide 1333 pg/mL (0-124) Total Protein 8.1 g/dL (6.4-8.2) Albumin 3.2 g/dL (3.4-5.0) Albumin/Globulin Ratio 0.7 (1.0-1.7) Lipase 92 U/L (73-393) Glucose (Fingerstick) 102 mg/dL (70-99) Test 12/05/18 12:23 12/05/18 17:06 12/05/18 20:03 12/06/18 07:41 Glucose (Fingerstick) 169 mg/dL (70-99) 150 mg/dL (70-99) 165 mg/dL (70-99) 143 mg/dL (70-99) Laboratory Tests Test 12/05/18 12:23 12/05/18 17:06 12/05/18 20:03 12/06/18 07:41 Glucose (Fingerstick) 169 mg/dL (70-99) 150 mg/dL (70-99) 165 mg/dL (70-99) 143 mg/dL (70-99) Medications Current Medications Aspirin (Children'S Aspirin) 162 mg 1X ONCE PO Last administered on 12/04/18 18:49; Start 12/04/18 at 18:45; Stop 12/04/18 at 18:46; Status DC Morphine Sulfate (Morphine Sulfate) 2 mg PRN Q15MIN PRN IV/SQ PAIN GREATER THAN 3/10 Last administered on 12/04/18at 20:14; Start 12/04/18 at 18:45; Stop 12/05/18 at 00:00; Status DC Ondansetron HCl (Zofran) 4 mg 1X ONCE IV Last administered on 12/04/18at 18:49; Start 12/04/18 at 18:45; Stop 12/04/18 at 18:46; Status DC Ondansetron HCl (Zofran) 4 mg PRN Q8HRS PRN IV NAUSEA/VOMITING 1ST CHOICE; Start 12/04/18 at 22:30; Stop 12/05/18 at 22:29; Status DC Morphine Sulfate (Morphine Sulfate) 2 mg PRN Q2HR PRN IV SEVERE PAIN 7-10 Last administered on 12/05/18at 03:56; Start 12/04/18 at 22:30; Stop 12/05/18 at 22:29; Status DC Albuterol/ Ipratropium (Duoneb) 3 ml RTQID NEB Last administered on 12/05/18at 20:46; Start 12/05/18 at 08:00; Stop 12/06/18 at 07:59; Status DC Albuterol Sulfate (Ventolin Neb Soln) 2.5 mg PRN Q6HRS PRN INH SHORTNESS OF BREATH; Start 12/05/18 at 01:15 Aspirin (Ecotrin) 81 mg DAILY PO Last administered on 12/05/18 08:32; Start 12/05/18 at 09:00 Atorvastatin Calcium (Lipitor) 20 mg HS PO Last administered on 12/05/18 21:11; Start 12/05/18 at 21:00 Calcium/Vitamin D (Oscal D 500mg/ 200uts) 1 tab DAILY PO Last administered on 12/05/18 08:32; Start 12/05/18 at 09:00 Capsaicin (Zostrix) 1 tre PRN TID PRN TP TOPICAL PAIN Last administered on 12/06/18 06:57; Start 12/05/18 at 01:15 Clonazepam (KlonoPIN) 0.5 mg TID PO Last administered on 12/05/18 21:11; Start 12/05/18 at 09:00 Clopidogrel Bisulfate (Plavix) 75 mg DAILYWBKFT PO Last administered on 12/05/18 08:32; Start 12/05/18 at 08:00 Famotidine (Pepcid) 20 mg BID PO Last administered on 12/05/18 21:11; Start 12/05/18 at 09:00 Fluoxetine HCl (PROzac) 20 mg DAILY PO Last administered on 12/05/18 08:32; Start 12/05/18 at 09:00 Furosemide (Lasix) 80 mg BID92 PO Last administered on 12/05/18 13:43; Start 12/05/18 at 09:00 Glimepiride (Amaryl) 2 mg DAILY PO Last administered on 12/05/18 08:32; Start 12/05/18 at 09:00 Metoprolol Tartrate (Lopressor) 25 mg BID PO Last administered on 12/05/18 21:11; Start 12/05/18 at 09:00 Nitroglycerin (Nitrostat) 0.4 mg PRN Q5MIN PRN SL CHEST PAIN; Start 12/05/18 at 01:15 Zolpidem Tartrate (Ambien) 5 mg QHS PO Last administered on 12/05/18 21:11; Start 12/05/18 at 21:00 Spironolactone (Aldactone) 25 mg BID PO Last administered on 12/05/18 21:11; Start 12/05/18 at 09:00 Non-Formulary Medication (Albuterol Sulfate (Albuterol Sulfate Conc Neb Soln)) 5 mg PRN PRN NEB WHEEZING; Start 12/05/18 at 01:15; Status UNV Docusate Sodium (Colace) 100 mg BID PO Last administered on 12/05/18at 21:11; Start 12/05/18 at 09:00 Oxycodone/ Acetaminophen (Percocet 10/325) 2 tab PRN Q4HRS PRN PO MILD PAIN / TEMP Last administered on 12/06/18at 06:57; Start 12/05/18 at 08:45 Enoxaparin Sodium (Lovenox 40mg Syringe) 40 mg Q24H SQ ; Start 12/05/18 at 12:00; Stop 12/05/18 at 11:31; Status DC Enoxaparin Sodium (Lovenox 40mg Syringe) 40 mg Q24H SQ Last administered on 12/05/18at 13:43; Start 12/05/18 at 14:00 Albuterol/ Ipratropium (Duoneb) 3 ml RTQID NEB Last administered on 12/06/18at 06:59; Start 12/06/18 at 08:00 Active Scripts Active Clopidogrel (Clopidogrel Bisulfate) 75 Mg Tablet 75 Mg PO DAILYWBKFT Percocet 10-325 Mg Tablet (Oxycodone/Acetaminophen) 1 Each Tablet 2 Tab PO PRN Q4-6HRS PRN MDD 1 Ondansetron Odt (Ondansetron) 4 Mg Tab.rapdis 1 Tab PO PRN Q6-8HRS Zofran (Ondansetron Hcl) 4 Mg Tablet 1 Tab PO PRN Q6-8HRS Proair Hfa Inhaler (Albuterol Sulfate) 8.5 Gm Hfa.aer.ad 1 Puff INH PRN Q6HRS PRN Amaryl (Glimepiride) 2 Mg Tablet 2 Mg PO DAILY 30 Days Reported Docusate Sodium 100 Mg Capsule 1 Cap PO BID Spironolactone 25 Mg Tablet 25 Mg PO BID Metolazone 5 Mg Tablet 5 Mg PO MOWEFR Metoprolol Tartrate 25 Mg Tablet 25 Mg PO BID Capsaicin 60 Gm Cream..g. 60 Gm TP PRN TID apply to morgan feet Calcium 500 + Vit D 200 Caplet (Calcium Carbonate/Vitamin D3) 1 Each Tablet 1 Each PO DAILY Zolpidem Tartrate 5 Mg Tablet 5 Mg PO QHS Clonazepam (Clonazepam) 0.5 Mg Tablet 0.5 Mg PO TID Fluoxetine Hcl 20 Mg Capsule 1 Cap PO DAILY Famotidine 20 Mg Tablet 20 Mg PO BID Furosemide 80 Mg Tablet 80 Mg PO BID Albuterol Sulfate Conc Neb Soln (Albuterol Sulfate) 2.5 Mg/0.5 Ml Vial.neb 5 Mg NEB PRN PRN NITROGLYCERIN SubLingual (Nitroglycerin) 0.4 Mg Tab.subl 0.4 Mg SL PRN Q5MIN PRN Atorvastatin Calcium 20 Mg Tablet 20 Mg PO HS Aspir 81 (Aspirin) 81 Mg Tablet. 1 Tab PO DAILY Vitals/I & O Vital Sign - Last 24 Hours 12/05/18 12/05/18 12/05/18 12/05/18 08:32 09:16 09:37 11:00 Temp 98.6 98.6 Pulse 63 63 Resp 16 B/P (MAP) 154/61 112/47 (68) Pulse Ox 96 96 96 O2 Delivery Nasal Cannula Room Air Nasal Cannula O2 Flow Rate 2.0 2.0 12/05/18 12/05/18 12/05/18 12/05/18 11:31 11:46 13:43 15:00 Temp 97.9 97.9 Pulse 60 Resp 16 B/P (MAP) 117/42 (67) Pulse Ox 96 95 95 96 O2 Delivery Room Air Nasal Cannula Room Air Nasal Cannula O2 Flow Rate 2.0 2.0 2.0 12/05/18 12/05/18 12/05/18 12/05/18 15:54 15:58 18:04 19:00 Temp 98.5 98.5 Pulse 55 Resp 18 B/P (MAP) 130/50 (76) Pulse Ox 95 94 94 97 O2 Delivery Room Air Nasal Cannula Room Air Room Air O2 Flow Rate 2.0 2.0 2.0 12/05/18 12/05/18 12/05/18 12/05/18 20:07 20:10 20:46 21:11 Pulse 55 B/P (MAP) 130/50 Pulse Ox 100 O2 Delivery Room Air Nasal Cannula Nasal Cannula O2 Flow Rate 3.0 2.0 12/05/18 12/06/18 12/06/1819 22:58 02:34 02:45 03:52 Temp 98.3 98.2 98.3 98.2 Pulse 59 60 Resp 17 20 B/P (MAP) 124/44 (70) 150/60 (90) Pulse Ox 95 95 O2 Delivery Nasal Cannula Room Air Room Air Nasal Cannula O2 Flow Rate 2.0 3.0 12/06/18 12/06/18 12/06/18 06:43 06:57 07:00 Temp 98.0 98.0 Pulse 60 Resp 20 B/P (MAP) 124/45 (71) Pulse Ox 93 93 96 O2 Delivery Room Air Nasal Cannula Nasal Cannula O2 Flow Rate 3.0 1.0 Intake and Output 12/05/18 12/05/18 12/06/18 14:59 22:59 06:59 Intake Total 120 ml 600 ml Output Total 550 ml Balance 120 ml -550 ml 600 ml JHON ZAPIEN MD Dec 06, 2018 08:19
[2018-12-06] MEDS: clonazePAM 0.5 MG TABLET PO SCH ×3 (08:30→22:55)
[2018-12-06] MEDS: CLOPIDOGREL BISULFATE 75 MG TABLET PO SCH (08:31)
[2018-12-06] MEDS: FUROSEMIDE 80 MG TABLET. PO SCH ×2 (08:31→14:09)
[2018-12-06] MEDS: FLUoxetine HCL 20 MG CAPSULE PO SCH (08:31)
[2018-12-06] MEDS: METOPROLOL TART IMMED RELEASE 25 MG TABLET. PO SCH ×2 (08:31→21:17)
[2018-12-06] MEDS: SPIRONOLACTONE 25 MG TABLET PO SCH ×2 (08:31→21:17)
[2018-12-06] MEDS: CALCIUM CARB/VIT D3 500/200 TABLET. PO SCH (08:31)
[2018-12-06] MEDS: FAMOTIDINE 20 MG TABLET. PO SCH ×2 (08:31→21:17)
[2018-12-06] MEDS: DOCUSATE SODIUM 100 MG CAPSULE. PO SCH ×2 (08:31→21:17)
[2018-12-06] MEDS: ASPIRIN ENTERIC COATED 81 MG TABLET.DR. PO SCH (08:31)
[2018-12-06] MEDS: GLIMEPIRIDE 2 MG TABLET. PO SCH (08:31)
[2018-12-06 11:00] VITALS: BP 132/54
--- NOTE | 2018-12-06 11:20 | PDOC ---
PROGRESS NOTES Subjective Subjective Continues to complain of right-sided chest pain Objective Objective Vital Signs Date Time Temp Pulse Resp B/P (MAP) Pulse Ox O2 Delivery O2 Flow Rate FiO2 12/06/18 11:05 96 Nasal Cannula 2.0 12/06/18 08:32 60 124/45 12/06/18 06:43 98.0 20 98.0 Intake and Output 12/06/18 06:59 Intake Total 720 ml Output Total 550 ml Balance 170 ml Intake Oral 720 ml Output Urine Total 550 ml # Voids 2 Physical Exam Abdomen: Soft, No tenderness Heart: Regular rate Extremities: No edema General: Alert, Oriented X3 HEENT: Atraumatic, PERRLA Lungs: Clear to auscultation MUSCULOSKELETAL: Osteoarthritic changes both hands Neuro: Normal speech, Cranial nerves 3-12 NL Psych/Mental Status: Mood NL Skin: No breakdown Assessment Assessment 1. Chest pain with atypical features. Patient has had recurrent admissions for similar chest pain. Myocardial infarction has been ruled out. Recent cardiac catheterization 04/2018 showed patent GARCIA to LAD and patent SVG to OM. Patient was thought to have CABG for thrombus of left main coronary artery that has since resolved. No lesions needing intervention were noted. Chest pain noncardiac and probably musculoskeletal. No further cardiac workup is indicated at this time. 2. Chronic diastolic heart failure: Well compensated. Recent 2-D echo October 2018 showed LVEF 50-55%. Continue current medications including oral diuretics. 3. Hypertension: Controlled 4. SSS s/p PPM: Stable 5. Hyperlipidemia: Continue statin therapy 6. DM2: Treat per IM Plan Plan of Care Problems Medical Problems: (1) Shortness of breath Status: Acute Comment Review of Relevant I have reviewed the following items nolan (where applicable) has been applied. Labs Laboratory Tests Test 12/05/18 12:23 12/05/18 17:06 12/05/18 20:03 12/06/18 07:41 Glucose (Fingerstick) 169 mg/dL (70-99) 150 mg/dL (70-99) 165 mg/dL (70-99) 143 mg/dL (70-99) Medications Current Medications Albuterol/ Ipratropium (Duoneb) 3 ml RTQID NEB Last administered on 12/06/18at 06:59; Start 12/06/18 at 08:00 Atorvastatin Calcium (Lipitor) 20 mg HS PO Last administered on 12/05/18at 21:11; Start 12/05/18 at 21:00 Enoxaparin Sodium (Lovenox 40mg Syringe) 40 mg Q24H SQ ; Start 12/05/18 at 12:00; Stop 12/05/18 at 11:31; Status DC Enoxaparin Sodium (Lovenox 40mg Syringe) 40 mg Q24H SQ Last administered on 12/05/18at 13:43; Start 12/05/18 at 14:00 Zolpidem Tartrate (Ambien) 5 mg QHS PO Last administered on 12/05/18at 21:11; Start 12/05/18 at 21:00 Vitals/I & O Vital Sign - Last 24 Hours 12/05/18 12/05/18 12/05/18 12/05/18 11:31 11:46 13:43 15:00 Temp 97.9 97.9 Pulse 60 Resp 16 B/P (MAP) 117/42 (67) Pulse Ox 96 95 95 96 O2 Delivery Room Air Nasal Cannula Room Air Nasal Cannula O2 Flow Rate 2.0 2.0 2.0 12/05/18 12/05/18 12/05/18 12/05/18 15:54 15:58 18:04 19:00 Temp 98.5 98.5 Pulse 55 Resp 18 B/P (MAP) 130/50 (76) Pulse Ox 95 94 94 97 O2 Delivery Room Air Nasal Cannula Room Air Room Air O2 Flow Rate 2.0 2.0 2.0 12/05/18 12/05/18 12/05/18 12/05/18 20:07 20:10 20:46 21:11 Pulse 55 B/P (MAP) 130/50 Pulse Ox 100 O2 Delivery Room Air Nasal Cannula Nasal Cannula O2 Flow Rate 3.0 2.0 12/05/18 12/06/18 12/06/18 12/06/18 22:58 02:34 02:45 03:52 Temp 98.3 98.2 98.3 98.2 Pulse 59 60 Resp 17 20 B/P (MAP) 124/44 (70) 150/60 (90) Pulse Ox 95 95 O2 Delivery Nasal Cannula Room Air Room Air Nasal Cannula O2 Flow Rate 2.0 3.0 12/06/18 12/06/18 12/06/18 12/06/18 06:43 06:57 07:00 08:00 Temp 98.0 98.0 Pulse 60 Resp 20 B/P (MAP) 124/45 (71) Pulse Ox 93 93 96 O2 Delivery Room Air Nasal Cannula Nasal Cannula Nasal Cannula O2 Flow Rate 3.0 1.0 2.0 12/06/18 12/06/18 08:32 11:05 Pulse 60 B/P (MAP) 124/45 Pulse Ox 96 O2 Delivery Nasal Cannula O2 Flow Rate 2.0 Intake and Output 12/05/18 12/05/18 12/06/18 14:59 22:59 06:59 Intake Total 120 ml 600 ml Output Total 550 ml Balance 120 ml -550 ml 600 ml MISBAH HUFFMAN MD Dec 06, 2018 11:20
--- NOTE | 2018-12-06 12:51 | PDOC3 ---
Discharge Summary Date of Admission: Dec 05, 2018 Date of Discharge: Dec 06, 2018 Follow-Up: 3-5 days Admitting Diagnosis comment: DISCHARGE DX Assessment/Plan impression Chest pain, stable angina acute heart failure. systolic Akinetic distal anterior wall and the entire apical wall with ejection fraction estimated at 40%.per cath 05/12 morbid obesity noncompliance with weight loss diet diabetes GERD CAD WITH HX STENTS recent cardiac catheterization 04/2018 showed patent GARCIA to LAD and patent SVG to OM. . No further cardiac workup is indicated admitted. tele bed serial enzymes, neg to date serial EKGs, echocardiogram, consult Cardiology, cardiac monitoring, DVT prophylaxis, home meds, full code. diuresis LOW NA INTAKE NEEDED, discussed, see pcp in 2-3 days 27 min pt exam D/C PLANNING , chart review,> 50% of time spent with exam, chart review, pt care coordination Vitals Vitals Vital Signs Date Time Temp Pulse Resp B/P (MAP) Pulse Ox O2 Delivery O2 Flow Rate FiO2 12/06/18 07:00 96 Nasal Cannula 1.0 12/06/18 06:43 98.0 60 20 124/45 (71) 98.0 Physical Exam General: Alert, Oriented X3, Cooperative, No acute distress Heart: Regular rate Lungs: Clear, Crackles Abdomen: Normal bowel sounds, Soft, No tenderness Extremities: No cyanosis, No edema Skin: No breakdown FINAL DIAGNOSIS Problems Medical Problems: (1) Shortness of breath Status: Acute Brief Hospital Course Ms. Lgauna is a 63 old [sex] who presented with [ acute chf] CONDITION AT DISCHARGE: Improved Discharge Medications Current Medications Aspirin (Children'S Aspirin) 162 mg 1X ONCE PO Last administered on 12/04/18at 18:49; Start 12/04/18 at 18:45; Stop 12/04/18 at 18:46; Status DC Morphine Sulfate (Morphine Sulfate) 2 mg PRN Q15MIN PRN IV/SQ PAIN GREATER THAN 3/10 Last administered on 12/04/18at 20:14; Start 12/04/18 at 18:45; Stop 12/05/18 at 00:00; Status DC Ondansetron HCl (Zofran) 4 mg 1X ONCE IV Last administered on 12/04/18at 18:49; Start 12/04/18 at 18:45; Stop 12/04/18 at 18:46; Status DC Ondansetron HCl (Zofran) 4 mg PRN Q8HRS PRN IV NAUSEA/VOMITING 1ST CHOICE; Start 12/04/18 at 22:30; Stop 12/05/18 at 22:29; Status DC Morphine Sulfate (Morphine Sulfate) 2 mg PRN Q2HR PRN IV SEVERE PAIN 7-10 Last administered on 12/05/18 03:56; Start 12/04/18 at 22:30; Stop 12/05/18 at 22:29; Status DC Albuterol/ Ipratropium (Duoneb) 3 ml RTQID NEB Last administered on 12/05/18 20:46; Start 12/05/18 at 08:00; Stop 12/06/18 at 07:59; Status DC Albuterol Sulfate (Ventolin Neb Soln) 2.5 mg PRN Q6HRS PRN INH SHORTNESS OF BREATH; Start 12/05/18 at 01:15 Aspirin (Ecotrin) 81 mg DAILY PO Last administered on 12/06/18 08:32; Start 12/05/18 at 09:00 Atorvastatin Calcium (Lipitor) 20 mg HS PO Last administered on 12/05/18 21:11; Start 12/05/18 at 21:00 Calcium/Vitamin D (Oscal D 500mg/ 200uts) 1 tab DAILY PO Last administered on 12/06/18 08:32; Start 12/05/18 at 09:00 Capsaicin (Zostrix) 1 tre PRN TID PRN TP TOPICAL PAIN Last administered on 12/06/18 06:57; Start 12/05/18 at 01:15 Clonazepam (KlonoPIN) 0.5 mg TID PO Last administered on 12/06/18 08:32; Start 12/05/18 at 09:00 Clopidogrel Bisulfate (Plavix) 75 mg DAILYWBKFT PO Last administered on 12/06/18 08:32; Start 12/05/18 at 08:00 Famotidine (Pepcid) 20 mg BID PO Last administered on 12/06/18 08:32; Start 12/05/18 at 09:00 Fluoxetine HCl (PROzac) 20 mg DAILY PO Last administered on 12/06/18 08:32; Start 12/05/18 at 09:00 Furosemide (Lasix) 80 mg BID92 PO Last administered on 12/06/18 08:32; Start 12/05/18 at 09:00 Glimepiride (Amaryl) 2 mg DAILY PO Last administered on 12/06/18 08:32; Start 12/05/18 at 09:00 Metoprolol Tartrate (Lopressor) 25 mg BID PO Last administered on 12/06/18 08:32; Start 12/05/18 at 09:00 Nitroglycerin (Nitrostat) 0.4 mg PRN Q5MIN PRN SL CHEST PAIN; Start 12/05/18 at 01:15 Zolpidem Tartrate (Ambien) 5 mg QHS PO Last administered on 12/05/18 21:11; Start 12/05/18 at 21:00 Spironolactone (Aldactone) 25 mg BID PO Last administered on 12/06/18 08:32; Start 12/05/18 at 09:00 Non-Formulary Medication (Albuterol Sulfate (Albuterol Sulfate Conc Neb Soln)) 5 mg PRN PRN NEB WHEEZING; Start 12/05/18 at 01:15; Status UNV Docusate Sodium (Colace) 100 mg BID PO Last administered on 12/06/18 08:32; Start 12/05/18 at 09:00 Oxycodone/ Acetaminophen (Percocet 10/325) 2 tab PRN Q4HRS PRN PO MILD PAIN / TEMP Last administered on 12/06/18 11:05; Start 12/05/18 at 08:45 Enoxaparin Sodium (Lovenox 40mg Syringe) 40 mg Q24H SQ ; Start 12/05/18 at 12:00; Stop 12/05/18 at 11:31; Status DC Enoxaparin Sodium (Lovenox 40mg Syringe) 40 mg Q24H SQ Last administered on 12/05/18 13:43; Start 12/05/18 at 14:00 Albuterol/ Ipratropium (Duoneb) 3 ml RTQID NEB Last administered on 12/06/18 11:21; Start 12/06/18 at 08:00 Active Scripts Active Clopidogrel (Clopidogrel Bisulfate) 75 Mg Tablet 75 Mg PO DAILYWBKFT Percocet 10-325 Mg Tablet (Oxycodone/Acetaminophen) 1 Each Tablet 2 Tab PO PRN Q4-6HRS PRN MDD 1 Ondansetron Odt (Ondansetron) 4 Mg Tab.rapdis 1 Tab PO PRN Q6-8HRS Zofran (Ondansetron Hcl) 4 Mg Tablet 1 Tab PO PRN Q6-8HRS Proair Hfa Inhaler (Albuterol Sulfate) 8.5 Gm Hfa.aer.ad 1 Puff INH PRN Q6HRS PRN Amaryl (Glimepiride) 2 Mg Tablet 2 Mg PO DAILY 30 Days Reported Docusate Sodium 100 Mg Capsule 1 Cap PO BID Spironolactone 25 Mg Tablet 25 Mg PO BID Metolazone 5 Mg Tablet 5 Mg PO MOWEFR Metoprolol Tartrate 25 Mg Tablet 25 Mg PO BID Capsaicin 60 Gm Cream..g. 60 Gm TP PRN TID apply to morgan feet Calcium 500 + Vit D 200 Caplet (Calcium Carbonate/Vitamin D3) 1 Each Tablet 1 Each PO DAILY Zolpidem Tartrate 5 Mg Tablet 5 Mg PO QHS Clonazepam (Clonazepam) 0.5 Mg Tablet 0.5 Mg PO TID Fluoxetine Hcl 20 Mg Capsule 1 Cap PO DAILY Famotidine 20 Mg Tablet 20 Mg PO BID Furosemide 80 Mg Tablet 80 Mg PO BID Albuterol Sulfate Conc Neb Soln (Albuterol Sulfate) 2.5 Mg/0.5 Ml Vial.neb 5 Mg NEB PRN PRN NITROGLYCERIN SubLingual (Nitroglycerin) 0.4 Mg Tab.subl 0.4 Mg SL PRN Q5MIN PRN Atorvastatin Calcium 20 Mg Tablet 20 Mg PO HS Aspir 81 (Aspirin) 81 Mg Tablet.dr 1 Tab PO DAILY Vital Signs Vital Signs Date Time Temp Pulse Resp B/P (MAP) Pulse Ox O2 Delivery O2 Flow Rate FiO2 12/06/18 12:16 96 Nasal Cannula 1.0 12/06/18 11:00 98.3 60 18 132/54 (80) 98.3 Labs Laboratory Tests Test 12/04/18 19:00 12/05/18 02:00 12/05/18 04:00 12/05/18 07:29 White Blood Count 8.9 x10^3/uL (4.0-11.0) 9.6 x10^3/uL (4.0-11.0) Red Blood Count 4.26 x10^6/uL (3.50-5.40) 4.06 x10^6/uL (3.50-5.40) Hemoglobin 10.7 g/dL (12.0-15.5) 10.4 g/dL (12.0-15.5) Hematocrit 33.8 % (36.0-47.0) 32.5 % (36.0-47.0) Mean Corpuscular Volume 79 fL (79-100) 80 fL (79-100) Mean Corpuscular Hemoglobin 25 pg (25-35) 26 pg (25-35) Mean Corpuscular Hemoglobin Concent 32 g/dL (31-37) 32 g/dL (31-37) Red Cell Distribution Width 17.4 % (11.5-14.5) 17.5 % (11.5-14.5) Platelet Count 338 x10^3/uL (140-400) 328 x10^3/uL (140-400) Neutrophils (%) (Auto) 76 % (31-73) 77 % (31-73) Lymphocytes (%) (Auto) 14 % (24-48) 14 % (24-48) Monocytes (%) (Auto) 9 % (0-9) 9 % (0-9) Eosinophils (%) (Auto) 1 % (0-3) 1 % (0-3) Basophils (%) (Auto) 0 % (0-3) 0 % (0-3) Neutrophils # (Auto) 6.8 x10^3/uL (1.8-7.7) 7.4 x10^3/uL (1.8-7.7) Lymphocytes # (Auto) 1.2 x10^3/uL (1.0-4.8) 1.3 x10^3/uL (1.0-4.8) Monocytes # (Auto) 0.8 x10^3/uL (0.0-1.1) 0.8 x10^3/uL (0.0-1.1) Eosinophils # (Auto) 0.1 x10^3/uL (0.0-0.7) 0.1 x10^3/uL (0.0-0.7) Basophils # (Auto) 0.0 x10^3/uL (0.0-0.2) 0.0 x10^3/uL (0.0-0.2) Sodium Level 141 mmol/L (136-145) 141 mmol/L (136-145) Potassium Level 3.5 mmol/L (3.5-5.1) 3.4 mmol/L (3.5-5.1) Chloride Level 100 mmol/L (98-107) 101 mmol/L (98-107) Carbon Dioxide Level 35 mmol/L (21-32) 35 mmol/L (21-32) Anion Gap 6 (6-14) 5 (6-14) Blood Urea Nitrogen 12 mg/dL (7-20) 14 mg/dL (7-20) Creatinine 0.8 mg/dL (0.6-1.0) 0.9 mg/dL (0.6-1.0) Estimated GFR (Cockcroft-Gault) 87.4 76.3 BUN/Creatinine Ratio 15 (6-20) Glucose Level 101 mg/dL (70-99) 172 mg/dL (70-99) Calcium Level 10.1 mg/dL (8.5-10.1) 9.9 mg/dL (8.5-10.1) Magnesium Level 2.2 mg/dL (1.8-2.4) Total Bilirubin 0.4 mg/dL (0.2-1.0) Aspartate Amino Transf (AST/SGOT) 15 U/L (15-37) Alanine Aminotransferase (ALT/SGPT) 19 U/L (14-59) Alkaline Phosphatase 94 U/L (46-116) Troponin I Quantitative < 0.017 ng/mL (0.000-0.055) < 0.017 ng/mL (0.000-0.055) < 0.017 ng/mL (0.000-0.055) UO-Sfl-L-Type Natriuretic Peptide 1333 pg/mL (0-124) Total Protein 8.1 g/dL (6.4-8.2) Albumin 3.2 g/dL (3.4-5.0) Albumin/Globulin Ratio 0.7 (1.0-1.7) Lipase 92 U/L (73-393) Glucose (Fingerstick) 102 mg/dL (70-99) Test 12/05/18 12:23 12/05/18 17:06 12/05/18 20:03 12/06/18 07:41 Glucose (Fingerstick) 169 mg/dL (70-99) 150 mg/dL (70-99) 165 mg/dL (70-99) 143 mg/dL (70-99) Test 12/06/18 10:45 Glucose (Fingerstick) 253 mg/dL (70-99) Laboratory Tests Test 12/05/18 17:06 12/05/18 20:03 12/06/18 07:41 12/06/18 10:45 Glucose (Fingerstick) 150 mg/dL (70-99) 165 mg/dL (70-99) 143 mg/dL (70-99) 253 mg/dL (70-99) Allergies Allergies Coded Allergies Type Severity Reaction Last Updated Verified ibuprofen Adverse Reaction Intermediate Nausea and Vomiting 12/02/17 Yes Disposition/Orders: D/C to Home Patient Instructions d/c planning 27 min JHON ZAPIEN MD Dec 06, 2018 12:51
--- NOTE | 2018-12-06 12:53 | DISCH ---
DISCHARGE INSTRUCTIONS Condition on Discharge Condition on Discharge: Stable Activity After Discharge Activity Instructions for Disc: Activity as tolerated Lifting Instructions after Dis: No heavy lifting, No pulling or pushing Exercise Instruction after Dis: Walk 10 min, 3 x per day, Progress as tolerated Driving Instructions after Dis: Do not drive today Weight Bearing Status after Di: As tolerated Diet after Discharge Diet after Discharge: Cardiac, Diabetic No Calorie Level Diet Texture: Regular Liquid Texture: Thin Liquid Swallowing Supervision: None needed Wound Incision Care Wound/Incision Care: No wound care needed Wound Care Equipment: Sutures/gucci Checks after Discharge Checks after discharge: Check blood press - daily, Check blood sugar, ac/hs Contacting the DR. after DC Call your doctor for: Concerns you may have Treatment/Equipment after DC Adaptive Equipment Issued: None Discharge Respiratory Equipmen: Oxygen JHON ZAPIEN MD Dec 06, 2018 12:53
[2018-12-06] MEDS: ENOXAPARIN 40 MG/0.4 ML SYRINGE. SQ SCH (14:00)
[2018-12-06 15:00] VITALS: BP 109/38
[2018-12-06 19:00] VITALS: BP 130/53
[2018-12-06] MEDS: ATORVASTATIN CALCIUM 20 MG TABLET PO SCH (21:17)
[2018-12-06] MEDS: ZOLPIDEM 5 MG TABLET. PO SCH (22:55)
[2018-12-06 23:00] VITALS: BP 102/60
[2018-12-07] MEDS: oxyCODONE/APAP 10/325 1 TAB TABLET PO PRN ×2 (02:47→08:04)
[2018-12-07 03:00] VITALS: BP 150/50
[2018-12-07 07:30] VITALS: BP 163/52
[2018-12-07] MEDS: CALCIUM CARB/VIT D3 500/200 TABLET. PO SCH (08:02)
[2018-12-07] MEDS: GLIMEPIRIDE 2 MG TABLET. PO SCH (08:02)
[2018-12-07] MEDS: clonazePAM 0.5 MG TABLET PO SCH (08:02)
[2018-12-07 08:03] VITALS: BP 163/52
[2018-12-07] MEDS: ASPIRIN ENTERIC COATED 81 MG TABLET.DR. PO SCH (08:03)
[2018-12-07] MEDS: FUROSEMIDE 80 MG TABLET. PO SCH (08:03)
[2018-12-07] MEDS: METOPROLOL TART IMMED RELEASE 25 MG TABLET. PO SCH (08:03)
[2018-12-07] MEDS: DOCUSATE SODIUM 100 MG CAPSULE. PO SCH (08:03)
[2018-12-07] MEDS: CLOPIDOGREL BISULFATE 75 MG TABLET PO SCH (08:03)
[2018-12-07] MEDS: FLUoxetine HCL 20 MG CAPSULE PO SCH (08:04)
[2018-12-07] MEDS: SPIRONOLACTONE 25 MG TABLET PO SCH (08:04)
[2018-12-07] MEDS: FAMOTIDINE 20 MG TABLET. PO SCH (08:04)
--- NOTE | 2018-12-07 08:06 | NUR ---
When getting report from wood gluer, patient was discharged on Friday12/06/18 and the cab never showed up to get her. It was too late at that point ([id number]) to send her home as the neighbor has her keys. This RN set up [facility] transport to take her home at 1000 today.
[2018-12-07] MEDS: IPRATRPIUM/ALBUTEROL 0.5/2.5MG 3 ML NEBU. NEB SCH (08:18)
--- NOTE | 2018-12-07 08:44 | PDOC ---
PROGRESS NOTES Chief Complaint Chief Complaint Assessment/Plan Hypertension - Controlled SSS s/p PPM - Stable Hyperlipidemia - Continue statin therapy Chest pain, stable angina acute heart failure. systolic, now compensated today Akinetic distal anterior wall and the entire apical wall with ejection fraction estimated at 40%.per cath 05/12 morbid obesity diabetes type 2 GERD CAD WITH HX STENTS recent cardiac catheterization 04/2018 showed patent GARCIA to LAD and patent SVG to OM. . No further cardiac workup is indicated admitted. tele bed serial enzymes, neg to date serial EKGs, echocardiogram, consult Cardiology, cardiac monitoring, DVT prophylaxis, home meds, full code. diuresis LOW NA INTAKE NEEDED, discussed 27 min pt exam D/C PLANNING , chart review,> 50% of time spent with exam, chart review, pt care coordination History of Present Illness History of Present Illness Ms Laguna is a 63yo F w/ PMHx HTN, SSS, HLD who presented with acute CHF and chest pain. Improved after mild IV diuresis and seen by cardiology, eriberto for d/c with outpatient f/u. No pain or SOB today. Vitals Vitals Vital Signs Date Time Temp Pulse Resp B/P (MAP) Pulse Ox O2 Delivery O2 Flow Rate FiO2 12/07/18 08:20 95 Room Air 12/07/18 08:10 2.0 12/07/18 08:04 62 163/52 12/07/18 07:30 98.5 18 98.5 Physical Exam General: Alert, Oriented X3, Cooperative, No acute distress Heart: Regular rate Lungs: Clear, Crackles Abdomen: Normal bowel sounds, Soft, No tenderness Extremities: No cyanosis, No edema Skin: No breakdown Labs LABS Laboratory Tests Test 12/06/18 10:45 12/06/18 17:36 Glucose (Fingerstick) 253 mg/dL (70-99) 105 mg/dL (70-99) Assessment and Plan Assessmemt and Plan Problems Medical Problems: (1) Shortness of breath Status: Acute Comment Review of Relevant I have reviewed the following items nolan (where applicable) has been applied. Labs Laboratory Tests Test 12/05/18 12:23 12/05/18 17:06 12/05/18 20:03 12/06/18 07:41 Glucose (Fingerstick) 169 mg/dL (70-99) 150 mg/dL (70-99) 165 mg/dL (70-99) 143 mg/dL (70-99) Test 12/06/18 10:45 12/06/18 17:36 Glucose (Fingerstick) 253 mg/dL (70-99) 105 mg/dL (70-99) Laboratory Tests Test 12/06/18 10:45 12/06/18 17:36 Glucose (Fingerstick) 253 mg/dL (70-99) 105 mg/dL (70-99) Medications Current Medications Aspirin (Children'S Aspirin) 162 mg 1X ONCE PO Last administered on 12/04/18 18:49; Start 12/04/18 at 18:45; Stop 12/04/18 at 18:46; Status DC Morphine Sulfate (Morphine Sulfate) 2 mg PRN Q15MIN PRN IV/SQ PAIN GREATER THAN 3/10 Last administered on 12/04/18at 20:14; Start 12/04/18 at 18:45; Stop 12/05/18 at 00:00; Status DC Ondansetron HCl (Zofran) 4 mg 1X ONCE IV Last administered on 12/04/18at 18:49; Start 12/04/18 at 18:45; Stop 12/04/18 at 18:46; Status DC Ondansetron HCl (Zofran) 4 mg PRN Q8HRS PRN IV NAUSEA/VOMITING 1ST CHOICE; Start 12/04/18 at 22:30; Stop 12/05/18 at 22:29; Status DC Morphine Sulfate (Morphine Sulfate) 2 mg PRN Q2HR PRN IV SEVERE PAIN 7-10 Last administered on 12/05/18at 03:56; Start 12/04/18 at 22:30; Stop 12/05/18 at 22:29; Status DC Albuterol/ Ipratropium (Duoneb) 3 ml RTQID NEB Last administered on 12/05/18at 20:46; Start 12/05/18 at 08:00; Stop 12/06/18 at 07:59; Status DC Albuterol Sulfate (Ventolin Neb Soln) 2.5 mg PRN Q6HRS PRN INH SHORTNESS OF BREATH; Start 12/05/18 at 01:15 Aspirin (Ecotrin) 81 mg DAILY PO Last administered on 12/07/18at 08:04; Start 12/05/18 at 09:00 Atorvastatin Calcium (Lipitor) 20 mg HS PO Last administered on 12/06/18 21:19; Start 12/05/18 at 21:00 Calcium/Vitamin D (Oscal D 500mg/ 200uts) 1 tab DAILY PO Last administered on 12/07/18 08:04; Start 12/05/18 at 09:00 Capsaicin (Zostrix) 1 tre PRN TID PRN TP TOPICAL PAIN Last administered on 12/06/18 06:57; Start 12/05/18 at 01:15 Clonazepam (KlonoPIN) 0.5 mg TID PO Last administered on 12/07/18 08:04; Start 12/05/18 at 09:00 Clopidogrel Bisulfate (Plavix) 75 mg DAILYWBKFT PO Last administered on 12/07/18 08:04; Start 12/05/18 at 08:00 Famotidine (Pepcid) 20 mg BID PO Last administered on 12/07/18 08:04; Start 12/05/18 at 09:00 Fluoxetine HCl (PROzac) 20 mg DAILY PO Last administered on 12/07/18 08:04; Start 12/05/18 at 09:00 Furosemide (Lasix) 80 mg BID92 PO Last administered on 12/07/18 08:04; Start 12/05/18 at 09:00 Glimepiride (Amaryl) 2 mg DAILY PO Last administered on 12/07/18 08:04; Start 12/05/18 at 09:00 Metoprolol Tartrate (Lopressor) 25 mg BID PO Last administered on 12/07/18 08:04; Start 12/05/18 at 09:00 Nitroglycerin (Nitrostat) 0.4 mg PRN Q5MIN PRN SL CHEST PAIN; Start 12/05/18 at 01:15 Zolpidem Tartrate (Ambien) 5 mg QHS PO Last administered on 12/06/18 22:55; Start 12/05/18 at 21:00 Spironolactone (Aldactone) 25 mg BID PO Last administered on 12/07/18 08:04; Start 12/05/18 at 09:00 Non-Formulary Medication (Albuterol Sulfate (Albuterol Sulfate Conc Neb Soln)) 5 mg PRN PRN NEB WHEEZING; Start 12/05/18 at 01:15; Status UNV Docusate Sodium (Colace) 100 mg BID PO Last administered on 12/07/18at 08:04; Start 12/05/18 at 09:00 Oxycodone/ Acetaminophen (Percocet 10/325) 2 tab PRN Q4HRS PRN PO MILD PAIN / TEMP Last administered on 12/07/18at 08:04; Start 12/05/18 at 08:45 Enoxaparin Sodium (Lovenox 40mg Syringe) 40 mg Q24H SQ ; Start 12/05/18 at 12:00; Stop 12/05/18 at 11:31; Status DC Enoxaparin Sodium (Lovenox 40mg Syringe) 40 mg Q24H SQ Last administered on 12/05/18at 13:43; Start 12/05/18 at 14:00 Albuterol/ Ipratropium (Duoneb) 3 ml RTQID NEB Last administered on 12/07/18at 08:18; Start 12/06/18 at 08:00 Active Scripts Active Clopidogrel (Clopidogrel Bisulfate) 75 Mg Tablet 75 Mg PO DAILYWBKFT Percocet 10-325 Mg Tablet (Oxycodone/Acetaminophen) 1 Each Tablet 2 Tab PO PRN Q4-6HRS PRN MDD 1 Ondansetron Odt (Ondansetron) 4 Mg Tab.rapdis 1 Tab PO PRN Q6-8HRS Proair Hfa Inhaler (Albuterol Sulfate) 8.5 Gm Hfa.aer.ad 1 Puff INH PRN Q6HRS PRN Amaryl (Glimepiride) 2 Mg Tablet 2 Mg PO DAILY 30 Days Reported Docusate Sodium 100 Mg Capsule 1 Cap PO BID Spironolactone 25 Mg Tablet 25 Mg PO BID Metolazone 5 Mg Tablet 5 Mg PO MOWEFR Metoprolol Tartrate 25 Mg Tablet 25 Mg PO BID Capsaicin 60 Gm Cream..g. 60 Gm TP PRN TID apply to morgan feet Calcium 500 + Vit D 200 Caplet (Calcium Carbonate/Vitamin D3) 1 Each Tablet 1 Each PO DAILY Zolpidem Tartrate 5 Mg Tablet 5 Mg PO QHS Clonazepam (Clonazepam) 0.5 Mg Tablet 0.5 Mg PO TID Fluoxetine Hcl 20 Mg Capsule 1 Cap PO DAILY Famotidine 20 Mg Tablet 20 Mg PO BID Furosemide 80 Mg Tablet 80 Mg PO BID Albuterol Sulfate Conc Neb Soln (Albuterol Sulfate) 2.5 Mg/0.5 Ml Vial.neb 5 Mg NEB PRN PRN NITROGLYCERIN SubLingual (Nitroglycerin) 0.4 Mg Tab.subl 0.4 Mg SL PRN Q5MIN PRN Atorvastatin Calcium 20 Mg Tablet 20 Mg PO HS Aspir 81 (Aspirin) 81 Mg Tablet.dr 1 Tab PO DAILY Vitals/I & O Vital Sign - Last 24 Hours 12/06/18 12/06/18 12/06/18 12/06/18 11:00 11:05 11:22 12:16 Temp 98.3 98.3 Pulse 60 Resp 18 B/P (MAP) 132/54 (80) Pulse Ox 96 96 96 96 O2 Delivery Room Air Nasal Cannula Nasal Cannula Nasal Cannula O2 Flow Rate 2.0 1.0 1.0 12/06/18 12/06/18 12/06/18 12/06/18 15:00 15:23 16:04 18:06 Temp 98.2 98.2 Pulse 60 Resp 18 B/P (MAP) 109/38 (61) Pulse Ox 93 96 96 96 O2 Delivery Room Air Nasal Cannula Nasal Cannula Nasal Cannula O2 Flow Rate 1.0 1.0 1.0 12/06/18 12/06/18 12/06/18 12/06/18 19:00 20:24 21:19 21:19 Temp 98.7 98.7 Pulse 60 60 Resp 18 B/P (MAP) 130/53 (78) 130/53 Pulse Ox 95 O2 Delivery Nasal Cannula Nasal Cannula Room Air O2 Flow Rate 2.0 2.0 12/06/18 12/06/18 12/07/18 12/07/18 22:55 23:00 02:47 03:00 Temp 98.6 97.6 98.6 97.6 Pulse 60 59 Resp 18 18 B/P (MAP) 102/60 (74) 150/50 (83) Pulse Ox 96 97 O2 Delivery Nasal Cannula Nasal Cannula Room Air Nasal Cannula O2 Flow Rate 2.0 2.0 2.0 12/07/18 12/07/18 12/07/18 12/07/18 06:11 07:30 08:04 08:04 Temp 98.5 98.5 Pulse 62 62 Resp 18 B/P (MAP) 163/52 (89) 163/52 Pulse Ox 93 93 O2 Delivery Nasal Cannula Nasal Cannula Nasal Cannula O2 Flow Rate 2.0 2.0 2.0 12/07/18 12/07/18 08:10 08:20 Pulse Ox 95 O2 Delivery Nasal Cannula Room Air O2 Flow Rate 2.0 Intake and Output 12/06/18 12/06/18 12/07/18 14:59 22:59 06:59 Intake Total 240 ml 400 ml Output Total 550 ml Balance -310 ml 400 ml VENKAT ALEJANDRO MD Dec 07, 2018 08:44
--- NOTE | 2018-12-07 10:06 | NUR ---
Discharge Note: GRETCHEN BONILLA [address] Discharge instructions and discharge home medications reviewed with Patient and a copy given. All questions have been answered and understanding verbalized. The following instructions and handouts were given: follow up instructions Discontinued lines and drains: no iv present. Patient discharged to home with self care via [facility] transport.
== END 2018-12-07 10:00 | disposition home or self-care (01) | DRG 302 ==
LOC: ER 18:28 → 6 SOUTH 22:24
PROVIDERS: ADMIT Internal Medicine; ATTEND Internal Medicine
DX: I25.110 Atherosclerotic heart disease of native coronary artery with unstable angina pectoris (principal); I50.43 Acute on chronic combined systolic (congestive) and diastolic (congestive) heart failure; I13.0 Hypertensive heart and chronic kidney disease with heart failure and stage 1 through stage 4 chronic kidney disease, or unspecified chronic kidney disease; K21.9 Gastro-esophageal reflux disease without esophagitis; E66.01 Morbid (severe) obesity due to excess calories; Z68.39 Body mass index [BMI] 39.0-39.9, adult; E11.22 Type 2 diabetes mellitus with diabetic chronic kidney disease; E78.00 Pure hypercholesterolemia, unspecified; E78.5 Hyperlipidemia, unspecified; Z96.659 Presence of unspecified artificial knee joint; G89.29 Other chronic pain; M19.90 Unspecified osteoarthritis, unspecified site; I25.2 Old myocardial infarction; J44.9 Chronic obstructive pulmonary disease, unspecified; N18.9 Chronic kidney disease, unspecified; Z82.49 Family history of ischemic heart disease and other diseases of the circulatory system; Z87.891 Personal history of nicotine dependence; Z90.710 Acquired absence of both cervix and uterus; Z91.19 Patient's noncompliance with other medical treatment and regimen; Z95.1 Presence of aortocoronary bypass graft; Z95.5 Presence of coronary angioplasty implant and graft; Z83.3 Family history of diabetes mellitus; Z88.8 Allergy status to other drugs, medicaments and biological substances
CPT/HCPCS: 36415; 71045; 80048; 80053; 82962; 83690; 83735; 83880; 84484; 85025; 93005; 94640; 96374; 96375; 96376; J1650; J2270; J2405; J7620; 99285-25; G0378

== ENCOUNTER 2018-12-10 12:58 | Emergency (ER) | payer OTHER ==
[~2018-12-10] VITALS: Ht 162.6 cm; Wt 104.3 kg
[~2018-12-10 12:58] MED LIST changes: +DOCU100C28 PO; +SPIR25TA5 PO
[2018-12-10] MEDS ORDERED: HYDROcodone/APAP 5/325MG 1 TAB TABLET PO ONE (13:30)
--- NOTE | 2018-12-10 13:35 | EKG ---
[facility] [address] [place] [address] Test Date: 2018-12-10 Test Time: 13:09:29 Pat Name: GRETCHEN BONILLA Department: Room: Gender: F [employer]: : 1955 Requested By: JO-ANN BLOUNT Order Number: [id number] Reading MD: Measurements Intervals [place] Rate: 79 P: -116 TN: 114 QRS: -152 QRSD: 150 T: 59 QT: 430 QTc: 494 Interpretive Statements SINUS RHYTHM ABNORMAL RIGHT SUPERIOR AXIS DEVIATION NON SPECIFIC INTRAVENTRICULAR BLOCK RVH WITH REPOLARIZATION ABNORMALITY QRS(T) CONTOUR ABNORMALITY CONSISTENT WITH ANTEROLATERAL INFARCT AGE UNDETERMINED CONSISTENT WITH INFERIOR INFARCT PROBABLY OLD ABNORMAL ECG RI6.01 No previous ECG available for comparison
--- NOTE | 2018-12-10 14:04 | PHYS DOC ---
Past Medical History Past Medical History: COPD, Diabetes-Type II, GERD, High Cholesterol, Hypertension, VA, Other Additional Past Medical Histor: O2 @3 L PRN, chronic pain, NEUROPATHY Past Surgical History: Angioplasty, Cholecystectomy, Hysterectomy, Knee Replacement, Pacemaker, Other Additional Past Surgical Histo: STENTS, CABG, HERNIA REPAIR, BREAST REDUCTION Alcohol Use: None Drug Use: None Adult General Chief Complaint Chief Complaint: chest pain and shortness of breath [facility] HPI Patient is a 63 year old female with frequent emergency room visits and hospitalization with chest pain who presents with complaining of chest pain or shortness of breath. Patient complaining of right sided sharp chest pain for almost one week as a constant pain that does not change with position or taking deep breaths. Patient complaining of shortness of breath at the same time with chest pain and rated her pain 8/10. Patient was admitted with the same chest pain 1 week ago and had negative evaluation including pulmonary embolism. Review of Systems Review of Systems Constitutional: Denies fever or chills [] Eyes: Denies change in visual acuity, redness, or eye pain [] HENT: Denies nasal congestion or sore throat [] Respiratory: Denies cough, reports shortness of breath [] Cardiovascular: No additional information not addressed in HPI [] GI: Denies abdominal pain, nausea, vomiting, bloody stools or diarrhea [] : Denies dysuria or hematuria [] Musculoskeletal: Denies back pain or joint pain [] Integument: Denies rash or skin lesions [] Neurologic: Denies headache, focal weakness or sensory changes [] Endocrine: Denies polyuria or polydipsia [] All other systems were reviewed and found to be within normal limits, except as documented in this note. Current Medications Current Medications Current Medications Medications (Trade) Dose Ordered Sig/[facility] Start Time Stop Time Status Last Admin Dose Admin Acetaminophen/ Hydrocodone Bitart (Lortab 5/325) 1 tab 1X ONCE 12/10/18 13:30 12/10/18 13:31 DC 12/10/18 13:37 1 TAB Allergies Allergies Allergies Coded Allergies Type Severity Reaction Last Updated Verified ibuprofen Adverse Reaction Intermediate Nausea and Vomiting 12/02/17 Yes Physical Exam Physical Exam Constitutional: Well nourished, mild distress, non-toxic appearance, obese. [] HENT: Normocephalic, atraumatic. Eyes: PERRLA, EOMI, conjunctiva normal, no discharge. [] Neck: Normal range of motion, no tenderness, supple, no stridor. [] Cardiovascular:Heart rate regular rhythm, no murmur [] Lungs & Thorax: Bilateral breath sounds clear to auscultation [] Abdomen: Bowel sounds normal, soft, no tenderness, no masses, no pulsatile masses. [] Skin: Warm, dry, no erythema, no rash. [] Back: No tenderness, no CVA tenderness. [] Extremities: No tenderness, no cyanosis, no clubbing, ROM intact, no edema. [] Neurologic: Alert and oriented X 3, no focal deficits noted. [] Psychologic: Affect normal, judgement normal, mood normal. [] Current Patient Data Vital Signs Vital Signs Date Time Temp Pulse Resp B/P (MAP) Pulse Ox O2 Delivery O2 Flow Rate FiO2 12/10/18 14:30 60 20 180/81 (114) 96 Room Air 12/10/18 13:01 98.3 98.3 Lab Values Laboratory Tests Test 12/10/18 14:05 White Blood Count 8.6 x10^3/uL (4.0-11.0) Red Blood Count 4.41 x10^6/uL (3.50-5.40) Hemoglobin 11.4 g/dL (12.0-15.5) L Hematocrit 35.1 % (36.0-47.0) L Mean Corpuscular Volume 80 fL (79-100) Mean Corpuscular Hemoglobin 26 pg (25-35) Mean Corpuscular Hemoglobin Concent 33 g/dL (31-37) Red Cell Distribution Width 16.8 % (11.5-14.5) H Platelet Count 412 x10^3/uL (140-400) H Neutrophils (%) (Auto) 76 % (31-73) H Lymphocytes (%) (Auto) 15 % (24-48) L Monocytes (%) (Auto) 8 % (0-9) Eosinophils (%) (Auto) 1 % (0-3) Basophils (%) (Auto) 1 % (0-3) Neutrophils # (Auto) 6.6 x10^3/uL (1.8-7.7) Lymphocytes # (Auto) 1.3 x10^3/uL (1.0-4.8) Monocytes # (Auto) 0.7 x10^3/uL (0.0-1.1) Eosinophils # (Auto) 0.0 x10^3/uL (0.0-0.7) Basophils # (Auto) 0.1 x10^3/uL (0.0-0.2) Sodium Level 141 mmol/L (136-145) Potassium Level 4.4 mmol/L (3.5-5.1) Chloride Level 101 mmol/L (98-107) Carbon Dioxide Level 34 mmol/L (21-32) H Anion Gap 6 (6-14) Blood Urea Nitrogen 15 mg/dL (7-20) Creatinine 0.9 mg/dL (0.6-1.0) Estimated GFR (Cockcroft-Gault) 76.3 Glucose Level 131 mg/dL (70-99) H Calcium Level 10.2 mg/dL (8.5-10.1) H Troponin I Quantitative < 0.017 ng/mL (0.000-0.055) Laboratory Tests 12/10/18 14:05 Laboratory Tests 12/10/18 14:05 EKG EKG EKG at 1309 showed normal sinus rhythm at rate of 79, abnormal right superior axis deviation, non-specific intraventricular block,RVH with repolarization abnormality, no acute T-wave elevation. Radiology/Procedures Radiology/Procedures [] Course & Med Decision Making Course & Med Decision Making Pertinent Labs reviewed. (See chart for details) Evaluation of patient in ER showed 63-year-old female patient with frequent emergency room visits and hospitalization because of chest pain presented with continuing right-sided chest pain after recent hospitalization for the same problem. Patient had unremarkable physical exam with no new change in EKG compared to previous one. Patient treated with hydrocodone in ER and felt better. Plan discharge patient home with prescription of Percogesic. Dragon Disclaimer Dragon Disclaimer This electronic medical record was generated, in whole or in part, using a voice recognition dictation system. Departure Departure Impression: Primary Impression: Non-cardiac chest pain Additional Impressions: Anemia Truncal obesity Disposition: HOME, SELF-CARE (at 1459) Condition: IMPROVED Referrals: JENSEN CUEVAS (PCP) Patient Instructions: Chest Wall Pain Additional Instructions: Continue current medication Follow-up with your primary care physician in 3-5 days Return to ER if not getting better Scripts [Percogesic] No Conflict Check 1 TAB PO Q6-8HRS PRN for PAIN, #14 Prov: JO-ANN BLOUNT MD 12/10/18 Problem Qualifiers Additional Impressions: Anemia Anemia type: unspecified type Qualified Codes: D64.9 - Anemia, unspecified JO-ANN BLOUNT MD Dec 10, 2018 14:04
--- NOTE | 2018-12-10 14:09 | RAD ---
Chest, PA and Lateral: Technique: PA and lateral views of the chest were obtained. History: Right-sided chest pain. Comparison: 12/04/2018. Findings: Moderate cardiomegaly. Left-sided cardiac pacer is identified. Moderate prominent bilateral interstitial lung markings likely congestive changes. Moderate degenerative changes thoracic spine. IMPRESSION: 1. Moderate congestive changes. Electronically signed by: Carlito Irwin MD (12/10/2018 2:06 PM) [place] [id number]
[2018-12-10 14:21] LABS: BASO # 0.1 x10^3/uL (0.0-0.2); BASO % 1 % (0-3); EOS % 1 % (0-3); HEMATOCRIT 35.1 % (36.0-47.0); HEMOGLOBIN 11.4 g/dL (12.0-15.5); LYMPH # 1.3 x10^3/uL (1.0-4.8); LYMPH % 15 % (24-48); MEAN CORPUSCULAR HEMOGLOBIN 26 pg (25-35); MEAN CORPUSCULAR HGB CONC 33 g/dL (31-37); MEAN CORPUSCULAR VOLUME 80 fL (79-100); MONO # 0.7 x10^3/uL (0.0-1.1); MONO % 8 % (0-9); NEUT # 6.6 x10^3/uL (1.8-7.7); NEUT % 76 % (31-73); PLATELET COUNT 412 x10^3/uL (140-400); RED BLOOD COUNT 4.41 x10^6/uL (3.50-5.40); RED CELL DISTRIBUTION WIDTH 16.8 % (11.5-14.5); WHITE BLOOD COUNT 8.6 x10^3/uL (4.0-11.0)
[2018-12-10 14:30] VITALS: BP 180/81
[2018-12-10 14:41] LABS: CALCIUM 10.2 mg/dL (8.5-10.1); CREATININE 0.9 mg/dL (0.6-1.0); GFR 76.3; POTASSIUM 4.4 mmol/L (3.5-5.1)
[2018-12-10] MEDS ORDERED: Percogesic PO ×2 (15:03→15:16)
== END 2018-12-10 15:41 | disposition home or self-care (01) ==
LOC: ER 12:58
DX: R07.89 Other chest pain (principal); D64.9 Anemia, unspecified; E66.01 Morbid (severe) obesity due to excess calories; Z68.39 Body mass index [BMI] 39.0-39.9, adult; J44.9 Chronic obstructive pulmonary disease, unspecified; K21.9 Gastro-esophageal reflux disease without esophagitis; E78.00 Pure hypercholesterolemia, unspecified; I10 Essential (primary) hypertension; I25.2 Old myocardial infarction; E11.40 Type 2 diabetes mellitus with diabetic neuropathy, unspecified; G89.29 Other chronic pain; Z90.49 Acquired absence of other specified parts of digestive tract; Z90.710 Acquired absence of both cervix and uterus; Z95.5 Presence of coronary angioplasty implant and graft; Z95.0 Presence of cardiac pacemaker; Z96.659 Presence of unspecified artificial knee joint; Z88.6 Allergy status to analgesic agent
CPT/HCPCS: 36415; 71046; 80048; 84484; 85025; 93005; 99285

== ENCOUNTER 2018-12-30 16:17 | Inpatient (IN) | payer OTHER ==
[~2018-12-30] VITALS: Ht 162.6 cm; Wt 110.3 kg
[~2018-12-30 16:17] MED LIST changes: -GLIM1TAB2; +GLIM1TAB3
[2018-12-30 17:00] LABS: BARBITURATES NEG (NEG); BENZODIAZEPINES NEG (NEG); CANNABINOIDS POS (NEG); COCAINE NEG (NEG); METHADONE NEG (NEG); OPIATES NEG (NEG); PHENCYCLIDINE NEG (NEG)
[2018-12-30] MEDS ORDERED: ALBUTEROL SULFATE 2.5 MG/3 ML NEBU. NEB ONE (17:00)
[2018-12-30] MEDS ORDERED: methylPREDNISolone SOD SUCC PF 125 MG/2 ML VIAL. IV ONE (17:00)
[2018-12-30] MEDS ORDERED: MORPHINE SULFATE 2 MG/ML VIAL. IV ONE ×2 (17:00→18:45)
[2018-12-30 17:02] LABS: AMPHETAMINE/METHAMPHETAMINE NEG (NEG)
[2018-12-30 17:07] LABS: BASO % 1 % (0-3); EOS % 0 % (0-3); HEMOGLOBIN 11.4 g/dL (12.0-15.5); LYMPH # 0.9 x10^3/uL (1.0-4.8); LYMPH % 9 % (24-48); MEAN CORPUSCULAR HEMOGLOBIN 25 pg (25-35); MEAN CORPUSCULAR HGB CONC 32 g/dL (31-37); MEAN CORPUSCULAR VOLUME 79 fL (79-100); MONO # 0.6 x10^3/uL (0.0-1.1); MONO % 6 % (0-9); NEUT # 8.2 x10^3/uL (1.8-7.7); NEUT % 84 % (31-73); PLATELET COUNT 360 x10^3/uL (140-400); RED BLOOD COUNT 4.56 x10^6/uL (3.50-5.40); RED CELL DISTRIBUTION WIDTH 17.5 % (11.5-14.5); WHITE BLOOD COUNT 9.8 x10^3/uL (4.0-11.0)
--- NOTE | 2018-12-30 17:07 | PHYS DOC ---
Past Medical History Past Medical History: COPD, Diabetes-Type II, GERD, High Cholesterol, Hypertension, [place], Other Additional Past Medical Histor: O2 @3 L PRN, chronic pain, NEUROPATHY (LUIS A KING APRN) Past Surgical History: Angioplasty, Cholecystectomy, Hysterectomy, Knee Replacement, Pacemaker, Other Additional Past Surgical Histo: STENTS, CABG, HERNIA REPAIR, BREAST REDUCTION (LUIS A KING APRN) Alcohol Use: None Drug Use: None (LUIS A KING APRN) Adult General Chief Complaint Chief Complaint: CHEST PAIN HPI HPI Patient is a 63 year old female who presents with 2 days of chest tightness, nausea, right to mid chest pain or shortness of air. Patient states she's been running a low-grade fever in the 99. Patient states the pain in her chest as sharp with some tightness. Patient states that she does not usually have to wear oxygen all the time but has found herself recently putting her oxygen on more than usual at 2-3 L. Patient rates her pain an 8 out of 10 at this time. Patient's heart rate is 103, 98.9, 20 respirations, 95% on room air. Patient has a history of sick sinus syndrome, diabetes, VIOLETTA, CAD, COPD, hypertension, neuropathy, OR. Patient states she took 2 sublingual nitroglycerin at 1600 and they did not help but they gave her headache. Patient states she has taken 324 mg of aspirin today. (LUIS A KING APRN) Review of Systems Review of Systems Constitutional: Low-grade fever or chills [] Respiratory: Denies cough. shortness of breath [] Cardiovascular: Chest pain and tightness GI: Denies abdominal pain, +nausea, denies vomiting, bloody stools or diarrhea [] Neurologic: Denies headache, focal weakness or sensory changes [] All other systems were reviewed and found to be within normal limits, except as documented in this note. (LUIS A KING APRN) Current Medications Current Medications Current Medications Medications (Trade) Dose Ordered Sig/Susan Start Time Stop Time Status Last Admin Dose Admin Albuterol Sulfate (Ventolin Neb Soln) 2.5 mg 1X ONCE 12/30/18 17:00 12/30/18 17:03 DC 12/30/18 17:42 2.5 MG Methylprednisolone Sodium Succinate (SOLU-Medrol 125MG VIAL) 62.5 mg 1X ONCE 12/30/18 17:00 12/30/18 17:03 DC 12/30/18 17:31 62.5 MG Morphine Sulfate (Morphine Sulfate) 1 mg 1X ONCE 12/30/18 17:00 12/30/18 17:03 DC 12/30/18 17:33 1 MG Ondansetron HCl (Zofran) 4 mg 1X ONCE 12/30/18 17:15 12/30/18 17:16 DC 12/30/18 17:29 4 MG (JO-ANN BLOUNT MD) Allergies Allergies Allergies Coded Allergies Type Severity Reaction Last Updated Verified ibuprofen Adverse Reaction Intermediate Nausea and Vomiting 12/02/17 Yes (JO-ANN BLOUNT MD) Physical Exam Physical Exam Constitutional: Well developed, well nourished, no acute distress, non-toxic appearance. [] Eyes: PERRLA, EOMI, conjunctiva normal, no discharge. [] Neck: Normal range of motion, no tenderness, supple, no stridor. [] Cardiovascular:Heart rate tachycardia regular rhythm, no murmur [] Lungs & Thorax: Bilateral breath sounds diminished to auscultation [] Abdomen: Bowel sounds normal, soft, no tenderness, no masses, no pulsatile masses. [] Skin: Warm, dry, no erythema, no rash. [] Extremities: No tenderness, no cyanosis, no clubbing, ROM intact, no edema. [] Neurologic: Alert and oriented X 3, normal motor function, normal sensory functi on, no focal deficits noted. [] Psychologic: Affect normal, judgement normal, mood normal. [] (LUIS A KING APRN) Current Patient Data Vital Signs Vital Signs Date Time Temp Pulse Resp B/P (MAP) Pulse Ox O2 Delivery O2 Flow Rate FiO2 12/30/18 17:42 Nasal Cannula 2.0 12/30/18 17:33 16 93 12/30/18 17:08 96 175/77 (109) 12/30/18 16:20 98.8 98.8 (JO-ANN BLOUNT MD) Lab Values Laboratory Tests Test 12/30/18 16:35 12/30/18 16:56 12/30/18 17:55 12/30/18 17:59 Urine Opiates Screen Neg (NEG) Urine Methadone Screen Neg (NEG) Urine Barbiturates Neg (NEG) Urine Phencyclidine Screen Neg (NEG) Urine Amphetamine/Methamphetamine Neg (NEG) Urine Benzodiazepines Screen Neg (NEG) Urine Cocaine Screen Neg (NEG) Urine Cannabinoids Screen Pos (NEG) Urine Ethyl Alcohol Neg (NEG) White Blood Count 9.8 x10^3/uL (4.0-11.0) Red Blood Count 4.56 x10^6/uL (3.50-5.40) Hemoglobin 11.4 g/dL (12.0-15.5) L Hematocrit 36.0 % (36.0-47.0) Mean Corpuscular Volume 79 fL (79-100) Mean Corpuscular Hemoglobin 25 pg (25-35) Mean Corpuscular Hemoglobin Concent 32 g/dL (31-37) Red Cell Distribution Width 17.5 % (11.5-14.5) H Platelet Count 360 x10^3/uL (140-400) Neutrophils (%) (Auto) 84 % (31-73) H Lymphocytes (%) (Auto) 9 % (24-48) L Monocytes (%) (Auto) 6 % (0-9) Eosinophils (%) (Auto) 0 % (0-3) Basophils (%) (Auto) 1 % (0-3) Neutrophils # (Auto) 8.2 x10^3/uL (1.8-7.7) H Lymphocytes # (Auto) 0.9 x10^3/uL (1.0-4.8) L Monocytes # (Auto) 0.6 x10^3/uL (0.0-1.1) Eosinophils # (Auto) 0.0 x10^3/uL (0.0-0.7) Basophils # (Auto) 0.0 x10^3/uL (0.0-0.2) Sodium Level 140 mmol/L (136-145) Potassium Level 3.5 mmol/L (3.5-5.1) Chloride Level 98 mmol/L (98-107) Carbon Dioxide Level 34 mmol/L (21-32) H Anion Gap 8 (6-14) Blood Urea Nitrogen 10 mg/dL (7-20) Creatinine 1.0 mg/dL (0.6-1.0) Estimated GFR (Cockcroft-Gault) 67.5 BUN/Creatinine Ratio 10 (6-20) Glucose Level 159 mg/dL (70-99) H Calcium Level 10.8 mg/dL (8.5-10.1) H Total Bilirubin 0.5 mg/dL (0.2-1.0) Aspartate Amino Transferase (AST) 21 U/L (15-37) Alanine Aminotransferase (ALT) 16 U/L (14-59) Alkaline Phosphatase 102 U/L (46-116) Troponin I Quantitative < 0.017 ng/mL (0.000-0.055) JD-Rvx-T-Type Natriuretic Peptide 1680 pg/mL (0-124) H Total Protein 9.3 g/dL (6.4-8.2) H Albumin 3.7 g/dL (3.4-5.0) Albumin/Globulin Ratio 0.7 (1.0-1.7) L O2 Saturation 94 % (92-99) Arterial Blood pH 7.45 (7.35-7.45) Arterial Blood pCO2 at Patient Temp 50 mmHg (35-46) H Arterial Blood pO2 at Patient Temp 71 mmHg (65-108) Arterial Blood HCO3 34 mmol/L (21-28) H Arterial Blood Base Excess 9 mmol/L (-3-3) H Oxyhemoglobin 93.1 % Methemoglobin 0.2 % (0.0-1.9) Carbon Monoxide, Quantitative 0.7 % (0.0-1.9) FiO2 2 lpm nc Prothrombin Time 13.3 SEC (11.7-14.0) Prothrombin Time INR 1.0 (0.8-1.1) Laboratory Tests 12/30/18 16:56 Laboratory Tests 12/30/18 16:56 (JO-ANN BLOUNT MD) Lab Values Laboratory Tests Test 12/30/18 16:35 12/30/18 16:56 12/30/18 17:55 12/30/18 17:59 Urine Opiates Screen Neg (NEG) Urine Methadone Screen Neg (NEG) Urine Barbiturates Neg (NEG) Urine Phencyclidine Screen Neg (NEG) Urine Amphetamine/Methamphetamine Neg (NEG) Urine Benzodiazepines Screen Neg (NEG) Urine Cocaine Screen Neg (NEG) Urine Cannabinoids Screen Pos (NEG) Urine Ethyl Alcohol Neg (NEG) White Blood Count 9.8 x10^3/uL (4.0-11.0) Red Blood Count 4.56 x10^6/uL (3.50-5.40) Hemoglobin 11.4 g/dL (12.0-15.5) L Hematocrit 36.0 % (36.0-47.0) Mean Corpuscular Volume 79 fL (79-100) Mean Corpuscular Hemoglobin 25 pg (25-35) Mean Corpuscular Hemoglobin Concent 32 g/dL (31-37) Red Cell Distribution Width 17.5 % (11.5-14.5) H Platelet Count 360 x10^3/uL (140-400) Neutrophils (%) (Auto) 84 % (31-73) H Lymphocytes (%) (Auto) 9 % (24-48) L Monocytes (%) (Auto) 6 % (0-9) Eosinophils (%) (Auto) 0 % (0-3) Basophils (%) (Auto) 1 % (0-3) Neutrophils # (Auto) 8.2 x10^3/uL (1.8-7.7) H Lymphocytes # (Auto) 0.9 x10^3/uL (1.0-4.8) L Monocytes # (Auto) 0.6 x10^3/uL (0.0-1.1) Eosinophils # (Auto) 0.0 x10^3/uL (0.0-0.7) Basophils # (Auto) 0.0 x10^3/uL (0.0-0.2) Sodium Level 140 mmol/L (136-145) Potassium Level 3.5 mmol/L (3.5-5.1) Chloride Level 98 mmol/L (98-107) Carbon Dioxide Level 34 mmol/L (21-32) H Anion Gap 8 (6-14) Blood Urea Nitrogen 10 mg/dL (7-20) Creatinine 1.0 mg/dL (0.6-1.0) Estimated GFR (Cockcroft-Gault) 67.5 BUN/Creatinine Ratio 10 (6-20) Glucose Level 159 mg/dL (70-99) H Calcium Level 10.8 mg/dL (8.5-10.1) H Total Bilirubin 0.5 mg/dL (0.2-1.0) Aspartate Amino Transferase (AST) 21 U/L (15-37) Alanine Aminotransferase (ALT) 16 U/L (14-59) Alkaline Phosphatase 102 U/L (46-116) Troponin I Quantitative < 0.017 ng/mL (0.000-0.055) SM-Ash-M-Type Natriuretic Peptide 1680 pg/mL (0-124) H Total Protein 9.3 g/dL (6.4-8.2) H Albumin 3.7 g/dL (3.4-5.0) Albumin/Globulin Ratio 0.7 (1.0-1.7) L O2 Saturation 94 % (92-99) Arterial Blood pH 7.45 (7.35-7.45) Arterial Blood pCO2 at Patient Temp 50 mmHg (35-46) H Arterial Blood pO2 at Patient Temp 71 mmHg (65-108) Arterial Blood HCO3 34 mmol/L (21-28) H Arterial Blood Base Excess 9 mmol/L (-3-3) H Oxyhemoglobin 93.1 % Methemoglobin 0.2 % (0.0-1.9) Carbon Monoxide, Quantitative 0.7 % (0.0-1.9) FiO2 2 lpm nc Prothrombin Time 13.3 SEC (11.7-14.0) Prothrombin Time INR 1.0 (0.8-1.1) Laboratory Tests 12/30/18 16:56 Laboratory Tests 12/30/18 16:56 (LUIS A KING APRN) EKG EKG Sinus rhythm, no STEMI[] Interpretation Time: [address] Blount (LUIS A KING APRN) Radiology/Procedures Radiology/Procedures [] (LUIS A KING APRN) Course & Med Decision Making Course & Med Decision Making Patient is a 63 year old female who presents with 2 days of chest tightness, nausea, right to mid chest pain or shortness of air. Patient states she's been running a low-grade fever in the 99. Patient states the pain in her chest as sharp with some tightness. Patient states that she does not usually have to wear oxygen all the time but has found herself recently putting her oxygen on more than usual at 2-3 L. Patient rates her pain an 8 out of 10 at this time. Patient's heart rate is 103, 98.9, 20 respirations, 95% on room air. Patient has a history of sick sinus syndrome, diabetes, VIOLETTA, CAD, COPD, hypertension, neuropathy, OR. Patient states she took 2 sublingual nitroglycerin at 1600 and they did not help but they gave her headache. Patient states she has taken 324 mg of aspirin today. Alert and oriented. Speaks in full clear sentences. Lungs are diminished throughout. There are audible wheezes when walking into the room and examining the patient. She speaks in full clear sentences. No extremity swelling. Patient states she's been taking all her medications as prescribed. Abdomen is soft and nontender. Patient is nauseated. PERRLA. Denies headache at this time, dizziness, syncope, visual changes, weaknesses, numbness or tingling other than her usual neuropathy, diarrhea, cough, congestion. Nursing staff and respiratory state that the patient went down to 88 or 89% on room air when they were in the room. Patient was placed on 2 L of oxygen. BNP elevated. Positive for Marijuana. Dr Moser has admitted the patient for COPD exacerbation. Dr Iyer read the chest xray and states COPD but no pulmonary edema. (LUIS A KING APRN) Course & Med Decision Making I was not involved in the care of this patient after 1800 on 12/30/2018. (JO-ANN BLOUNT MD) Dragon Disclaimer Dragon Disclaimer This electronic medical record was generated, in whole or in part, using a voice recognition dictation system. (LUIS A KING APRN) The HEART Score for CP Pts HEART Score for Chest Pain: HEART Score for Chest Pain Response (Comments) Value History Moderately Suspicious 1 ECG Nonspecific Repolarizatio 1 Age >45 - < 65 1 Risk Factors >3 Risk Factors or Hx CAD 2 Troponin < Normal Limit 0 Total 5 Risk Factors: Risk Factors: DM, Current or recent (<one month) smoker, HTN, HLP, family history of CAD, obesity. Risk Scores: Score 0 - 3: 2.5% MACE over next 6 weeks - Discharge Home Score 4 - 6: 20.3% MACE over next 6 weeks - Admit for Clinical Observation Score 7 - 10: 72.7% MACE over next 6 weeks - Early Invasive Strategies (LUIS A KING APRN) Departure Departure Impression: Primary Impression: COPD (chronic obstructive pulmonary disease) Disposition: ADMITTED INPATIENT Admitting Physician: MAGNUS (LUIS A KING APRN) Condition: STABLE Referrals: JENSEN CUEVAS (PCP) Scripts Oxycodone/Apap 10-325 (PERCOCET 10-325 MG TABLET ) 1 Each Tablet 2 TAB PO PRN Q4-6HRS PRN for PAIN MDD 1, #20 TAB 0 Refills Prov: CATHIE KNIGHT MD 01/03/19 Problem Qualifiers Primary Impression: COPD (chronic obstructive pulmonary disease) COPD type: unspecified COPD Qualified Codes: J44.9 - Chronic obstructive pulmonary disease, unspecified LUIS A KING APRN Dec 30, 2018 17:07 JO-ANN BLOUNT MD Jan 05, 2019 06:07
[2018-12-30] MEDS ORDERED: ONDANSETRON PF 4 MG/2 ML VIAL. IV ONE (17:15)
[2018-12-30 17:20] LABS: CALCIUM 10.8 mg/dL (8.5-10.1); GFR 67.5; POTASSIUM 3.5 mmol/L (3.5-5.1)
[2018-12-30 17:33] LABS: ALBUMIN 3.7 g/dL (3.4-5.0); ALBUMIN/GLOBULIN RATIO 0.7 (1.0-1.7); TOTAL BILIRUBIN 0.5 mg/dL (0.2-1.0); TOTAL PROTEIN 9.3 g/dL (6.4-8.2)
[2018-12-30 17:59] LABS: BASE EXCESS COOX 9 mmol/L (-3-3); HCO3 COOX 34 mmol/L (21-28); METHEMOGLOBIN 0.2 % (0.0-1.9); OXYHEMOGLOBIN 93.1 %; PCO2 COOX 50 mmHg (35-46); PO2 COOX 71 mmHg (65-108); SAT O2 COOX 94 % (92-99)
[2018-12-30 18:21] LABS: PROTHROMBIN TIME PATIENT 13.3 SEC (11.7-14.0)
[2018-12-30] MEDS ORDERED: ONDANSETRON PF 4 MG/2 ML VIAL. IV PRN (19:00)
[2018-12-30] MEDS ORDERED: ACETAMINOPHEN 325 MG TABLET. PO PRN ×2 (19:00→23:15)
[2018-12-30] MEDS ORDERED: fentaNYL PF VIAL 100 MCG/2 ML VIAL IV PRN (19:00)
[2018-12-30 19:50] VITALS: BP 182/79
[2018-12-30] MEDS: IPRATRPIUM/ALBUTEROL 0.5/2.5MG 3 ML NEBU. NEB SCH (20:24)
[2018-12-30] MEDS ORDERED: NITROGLYCERIN SUBLINGUAL 0.4 MG BOTTLE OF 25. SL PRN (23:00)
[2018-12-30] MEDS ORDERED: ONDANSETRON ODT 4 MG TAB.RAPDIS. PO PRN (23:00)
--- NOTE | 2018-12-30 23:37 | RAD ---
Exam: Chest one view INDICATION: Chest pain TECHNIQUE: Frontal view of the chest Comparisons: 12/14/2018 FINDINGS: Sternotomy wires and pacer are again noted in unchanged position. Heart is enlarged. Pulmonary vessels are within normal limits. The lung and pleural spaces are clear. IMPRESSION: Cardiomegaly without acute pulmonary process. Electronically signed by: Kunal Fu MD (12/30/2018 11:34 PM) [facility]
[2018-12-30 23:40] VITALS: BP 168/55
[2018-12-31] VITALS (7 sets, daily range): BP systolic 133–176; BP diastolic 41–83
[2018-12-31] MEDS: oxyCODONE/APAP 10/325 1 TAB TABLET PO PRN ×5 (00:48→20:28)
[2018-12-31] MEDS: clonazePAM 0.5 MG TABLET PO SCH ×4 (00:48→20:19)
[2018-12-31] MEDS: ZOLPIDEM 5 MG TABLET. PO SCH ×2 (00:49→20:18)
--- NOTE | 2018-12-31 06:39 | EKG ---
[facility] [address] [place] [address] Test Date: 2018-12-30 Test Time: 16:23:34 Pat Name: GRETCHEN BONILLA Department: Room: 671 1 Gender: F [employer]ist: : [id number] Requested By: LUIS A KING Order Number: [id number] Reading MD: Salvador Maldonado MD Measurements Intervals [place]anner Rate: 103 P: OK: QRS: -107 QRSD: 152 T: 96 QT: 386 QTc: 508 Interpretive Statements SINUS TACHYCARDIA probable paced rhythm Electronically Signed On 01-10-2019 11:48:52 CDT by Salvador Maldonado MD
[2018-12-31] MEDS: IPRATRPIUM/ALBUTEROL 0.5/2.5MG 3 ML NEBU. NEB SCH ×4 (07:02→19:40)
--- NOTE | 2018-12-31 08:16 | PDOC1 ---
History and Physical Date of Admission Date of Admission DATE: 12/31/18 TIME: 08:13 Identification/Chief Complaint Chief Complaint SEEN IN ER WITH ACUTE RESP FALIURE 63 year old female who presented with 2 days of chest tightness, nausea, right to mid chest pain // shortness of air. states she's been running a low-grade fever in the 99. Patient states the pain in her chest as sharp with some tightness. IN ER , NEEDED oxygen on more than usual at 2-3 L HAS KNOWN HYPERCAPNIC RESP FAILURE , NEEDS SLEEP STUDY, BUT HAS NOT accomplished as she was directed PCO2 50 IN ER Past Medical History Past Medical History Past Medical History Past Medical History Past Medical History: COPD, Diabetes-Type II, GERD, High Cholesterol, Hypertension, IA, Other Additional Past Medical Histor: O2 @3 L PRN, chronic pain, NEUROPATHY Past Surgical History: Angioplasty, Cholecystectomy, Hysterectomy, Knee Replacement, Pacemaker, Other Additional Past Surgical Histo: STENTS, CABG, HERNIA REPAIR, BREAST REDUCTION Alcohol Use: None Drug Use: thc PAST MEDICAL HISTORY Past Medical History Cardiovascular: CAD, CHF, HTN, IA, Hyperlipidemia, Other Pulmonary: COPD CENTRAL NERVOUS SYSTEM: Periperal neuropathy GI: GERD Heme/Onc: No pertinent hx Hepatobiliary: Cholelithiasis Psych: No pertinent hx Musculoskeletal: Osteoarthritis, Weakness Rheumatologic: No pertinent hx Infectious disease: No pertinent hx Renal/: Chronic renal insuff Endocrine: Diabetes PAST SURGICAL HISTORY Past Surgical History Pacemaker, Appendectomy, Cholecystectomy, Total knee replacement, Hysterectomy FAMILY HISTORY Family History: Heart Disease SOCIAL HISTORY Smoke: No ALCOHOL: none Drugs: None Lives: with Family Cardiovascular: CAD, CHF, HTN, IA, Hyperlipidemia, Other Pulmonary: Bronchitis, COPD CENTRAL NERVOUS SYSTEM: Periperal neuropathy GI: GERD Heme/Onc: No pertinent hx Hepatobiliary: Cholelithiasis Psych: No pertinent hx Musculoskeletal: Osteoarthritis, Weakness Rheumatologic: No pertinent hx Infectious disease: No pertinent hx Renal/: Chronic renal insuff Endocrine: Diabetes Past Surgical History Past Surgical History: Pacemaker, Appendectomy, Cholecystectomy, Total knee replacement, Hysterectomy Family History Family History: Heart Disease Family History: Parent Social History Smoke: <1 pack per day ALCOHOL: none Drugs: None, Marijuana Current Medications Current Medications Current Medications Albuterol Sulfate (Ventolin Neb Soln) 2.5 mg 1X ONCE NEB Last administered on 12/30/18at 17:42; Start 12/30/18 at 17:00; Stop 12/30/18 at 17:03; Status DC Methylprednisolone Sodium Succinate (SOLU-Medrol 125MG VIAL) 62.5 mg 1X ONCE IV Last administered on 12/30/18at 17:31; Start 12/30/18 at 17:00; Stop 12/30/18 at 17:03; Status DC Morphine Sulfate (Morphine Sulfate) 1 mg 1X ONCE IV Last administered on 12/30/18at 17:33; Start 12/30/18 at 17:00; Stop 12/30/18 at 17:03; Status DC Ondansetron HCl (Zofran) 4 mg 1X ONCE IV Last administered on 12/30/18at 17:29; Start 12/30/18 at 17:15; Stop 12/30/18 at 17:16; Status DC Morphine Sulfate (Morphine Sulfate) 1 mg 1X ONCE IV Last administered on 12/30/18at 19:14; Start 12/30/18 at 18:45; Stop 12/30/18 at 18:46; Status DC Ondansetron HCl (Zofran) 4 mg PRN Q8HRS PRN IV NAUSEA/VOMITING; Start 12/30/18 at 19:00; Stop 12/31/18 at 18:59 Fentanyl Citrate (Fentanyl 2ml Vial) 50 mcg PRN Q1HR PRN IV PAIN; Start 12/30/18 at 19:00; Stop 12/31/18 at 18:59 Acetaminophen (Tylenol) 650 mg PRN Q4HRS PRN PO FEVER; Start 12/30/18 at 19:00; Stop 12/30/18 at 23:13; Status DC Albuterol/ Ipratropium (Duoneb) 3 ml RTQID NEB Last administered on 12/31/18at 07:02; Start 12/30/18 at 20:00; Stop 12/31/18 at 19:59 Aspirin (Ecotrin) 81 mg DAILY PO ; Start 12/31/18 at 09:00 Atorvastatin Calcium (Lipitor) 20 mg HS PO ; Start 12/31/18 at 21:00 Calcium/Vitamin D (Oscal D 500mg/ 200uts) 1 tab DAILY PO ; Start 12/31/18 at 09:00 Clonazepam (KlonoPIN) 0.5 mg TID PO Last administered on 12/31/18at 00:48; Start 12/31/18 at 01:00 Clopidogrel Bisulfate (Plavix) 75 mg DAILYWBKFT PO ; Start 12/31/18 at 08:00 Docusate Sodium (Colace) 100 mg BID PO ; Start 12/31/18 at 09:00 Famotidine (Pepcid) 20 mg BID PO ; Start 12/31/18 at 09:00 Fluoxetine HCl (PROzac) 20 mg DAILY PO ; Start 12/31/18 at 09:00 Furosemide (Lasix) 80 mg BID94 PO ; Start 12/31/18 at 09:00 Glimepiride (Amaryl) 2 mg DAILY PO ; Start 12/31/18 at 09:00 Metoprolol Tartrate (Lopressor) 25 mg BID PO ; Start 12/31/18 at 09:00 Nitroglycerin (Nitrostat) 0.4 mg PRN Q5MIN PRN SL CHEST PAIN; Start 12/30/18 at 23:00 Ondansetron HCl (Zofran Odt) 4 mg PRN Q6HRS PRN PO NAUSEA/VOMITING 1ST CHOICE; Start 12/30/18 at 23:00 Oxycodone/ Acetaminophen (Percocet 10/325) 2 tab PRN Q4HRS PRN PO SEVERE PAIN 7-10 Last administered on 12/31/18at 07:01; Start 12/30/18 at 23:00 Zolpidem Tartrate (Ambien) 5 mg QHS PO Last administered on 12/31/18at 00:49; Start 12/31/18 at 01:00 Acetaminophen (Tylenol) 650 mg PRN Q6HRS PRN PO MILD PAIN / TEMP; Start 12/30/18 at 23:15 Influenza Virus Vaccine Quadrival (Afluria Quad 2019-20 (3yr Up) Syringe) 0.5 ml ONCE ONCE VAX IM ; Start 12/31/18 at 09:00; Stop 12/31/18 at 09:01 Active Scripts Active Percocet 10-325 Mg Tablet (Oxycodone/Acetaminophen) 1 Each Tablet 2 Tab PO PRN Q4-6HRS PRN MDD 1 [Percogesic] 1 Tab PO Q6-8HRS PRN Clopidogrel (Clopidogrel Bisulfate) 75 Mg Tablet 75 Mg PO DAILYWBKFT Ondansetron Odt (Ondansetron) 4 Mg Tab.rapdis 1 Tab PO PRN Q6-8HRS Proair Hfa Inhaler (Albuterol Sulfate) 8.5 Gm Hfa.aer.ad 1 Puff INH PRN Q6HRS PRN Amaryl (Glimepiride) 2 Mg Tablet 2 Mg PO DAILY 30 Days Reported Docusate Sodium 100 Mg Capsule 1 Cap PO BID Metoprolol Tartrate 25 Mg Tablet 25 Mg PO BID Capsaicin 60 Gm Cream..g. 60 Gm TP PRN TID apply to morgan feet Calcium 500 + Vit D 200 Caplet (Calcium Carbonate/Vitamin D3) 1 Each Tablet 1 Ea ch PO DAILY Zolpidem Tartrate 5 Mg Tablet 5 Mg PO QHS Clonazepam (Clonazepam) 0.5 Mg Tablet 0.5 Mg PO TID Fluoxetine Hcl 20 Mg Capsule 1 Cap PO DAILY Famotidine 20 Mg Tablet 20 Mg PO BID Furosemide 80 Mg Tablet 80 Mg PO BID Albuterol Sulfate Conc Neb Soln (Albuterol Sulfate) 2.5 Mg/0.5 Ml Vial.neb 5 Mg NEB PRN PRN NITROGLYCERIN SubLingual (Nitroglycerin) 0.4 Mg Tab.subl 0.4 Mg SL PRN Q5MIN PRN Atorvastatin Calcium 20 Mg Tablet 20 Mg PO HS Aspir 81 (Aspirin) 81 Mg Tablet. 1 Tab PO DAILY Allergies Allergies: Coded Allergies: ibuprofen (Verified Adverse Reaction, Intermediate, Nausea and Vomiting, 12/02/17) ROS Review of System Review of Systems Review of Systems Constitutional: Low-grade fever or chills [] Respiratory: Denies cough. shortness of breath [] Cardiovascular: Chest pain and tightness GI: Denies abdominal pain, +nausea, denies vomiting, bloody stools or diarrhea [] Neurologic: Denies headache, focal weakness or sensory changes [] 14 PT systems were reviewed and found to be within normal limits, except as documented Hematological and Lymphatic: No: Bleeding Problems, Blood Clots, Blood Transfusions, Brusing, Night Sweats, Pallor, Swollen Lymph Nodes, Other Respiratory: YES: Shortness of breath, SOB with excertion Cardiovascular: yes Other (CHEST TIGHTNESS) Gastrointestinal: No Nausea, No Vomiting, No Abdominal Pain, No Diarrhea, No Constipation, No Melena, No Hematochezia, No Other Musculoskeletal: Yes Joint Stiffness Physical Exam Physical Exam Physical Exam Physical Exam Constitutional: Well developed, well nourished, no acute distress, non-toxic appearance. [] Eyes: PERRLA, EOMI, conjunctiva normal, no discharge. [] Neck: Normal range of motion, no tenderness, supple, no stridor. [] Cardiovascular:Heart rate tachycardia regular rhythm, no murmur [] Lungs & Thorax: Bilateral breath sounds diminished to auscultation [] Abdomen: Bowel sounds normal, soft, no tenderness, no masses, no pulsatile masses. [] Skin: Warm, dry, no erythema, no rash. [] Extremities: No tenderness, no cyanosis, no clubbing, ROM intact, no edema. [] Neurologic: Alert and oriented X 3, normal motor function, normal sensory function, no focal deficits noted. [] Psychologic: Affect normal, judgement normal, mood normal. [] General: Alert, Oriented X3, Cooperative, No acute distress Lungs: Other (diminished) Heart: no gallops Breasts: Not examined Abdomen: Soft Rectal Exam: not examined PELVIC: Examination not indicated Extremities: No cyanosis, No edema Neuro: Normal speech, Cranial nerves 3-12 NL Psych/Mental Status: Mental status NL, Mood NL Vitals Vitals Vital Signs Date Time Temp Pulse Resp B/P (MAP) Pulse Ox O2 Delivery O2 Flow Rate FiO2 12/31/18 07:22 97.4 71 18 176/61 (99) 98 Nasal Cannula 2.0 97.4 Labs Labs Laboratory Tests Test 12/30/18 16:35 12/30/18 16:56 12/30/18 17:55 12/30/18 17:59 Urine Opiates Screen Neg (NEG) Urine Methadone Screen Neg (NEG) Urine Barbiturates Neg (NEG) Urine Phencyclidine Screen Neg (NEG) Urine Amphetamine/Methamphetamine Neg (NEG) Urine Benzodiazepines Screen Neg (NEG) Urine Cocaine Screen Neg (NEG) Urine Cannabinoids Screen Pos (NEG) Urine Ethyl Alcohol Neg (NEG) White Blood Count 9.8 x10^3/uL (4.0-11.0) Red Blood Count 4.56 x10^6/uL (3.50-5.40) Hemoglobin 11.4 g/dL (12.0-15.5) Hematocrit 36.0 % (36.0-47.0) Mean Corpuscular Volume 79 fL (79-100) Mean Corpuscular Hemoglobin 25 pg (25-35) Mean Corpuscular Hemoglobin Concent 32 g/dL (31-37) Red Cell Distribution Width 17.5 % (11.5-14.5) Platelet Count 360 x10^3/uL (140-400) Neutrophils (%) (Auto) 84 % (31-73) Lymphocytes (%) (Auto) 9 % (24-48) Monocytes (%) (Auto) 6 % (0-9) Eosinophils (%) (Auto) 0 % (0-3) Basophils (%) (Auto) 1 % (0-3) Neutrophils # (Auto) 8.2 x10^3/uL (1.8-7.7) Lymphocytes # (Auto) 0.9 x10^3/uL (1.0-4.8) Monocytes # (Auto) 0.6 x10^3/uL (0.0-1.1) Eosinophils # (Auto) 0.0 x10^3/uL (0.0-0.7) Basophils # (Auto) 0.0 x10^3/uL (0.0-0.2) Sodium Level 140 mmol/L (136-145) Potassium Level 3.5 mmol/L (3.5-5.1) Chloride Level 98 mmol/L (98-107) Carbon Dioxide Level 34 mmol/L (21-32) Anion Gap 8 (6-14) Blood Urea Nitrogen 10 mg/dL (7-20) Creatinine 1.0 mg/dL (0.6-1.0) Estimated GFR (Cockcroft-Gault) 67.5 BUN/Creatinine Ratio 10 (6-20) Glucose Level 159 mg/dL (70-99) Calcium Level 10.8 mg/dL (8.5-10.1) Total Bilirubin 0.5 mg/dL (0.2-1.0) Aspartate Amino Transf (AST/SGOT) 21 U/L (15-37) Alanine Aminotransferase (ALT/SGPT) 16 U/L (14-59) Alkaline Phosphatase 102 U/L (46-116) Troponin I Quantitative < 0.017 ng/mL (0.000-0.055) LX-Chn-A-Type Natriuretic Peptide 1680 pg/mL (0-124) Total Protein 9.3 g/dL (6.4-8.2) Albumin 3.7 g/dL (3.4-5.0) Albumin/Globulin Ratio 0.7 (1.0-1.7) O2 Saturation 94 % (92-99) Arterial Blood pH 7.45 (7.35-7.45) Arterial Blood pCO2 at Patient Temp 50 mmHg (35-46) Arterial Blood pO2 at Patient Temp 71 mmHg (65-108) Arterial Blood HCO3 34 mmol/L (21-28) Arterial Blood Base Excess 9 mmol/L (-3-3) Oxyhemoglobin 93.1 % Methemoglobin 0.2 % (0.0-1.9) Carbon Monoxide, Quantitative 0.7 % (0.0-1.9) FiO2 2 lpm nc Prothrombin Time 13.3 SEC (11.7-14.0) Prothromb Time International Ratio 1.0 (0.8-1.1) Test 12/30/18 20:45 12/30/18 21:35 Glucose (Fingerstick) 217 mg/dL (70-99) Troponin I Quantitative < 0.017 ng/mL (0.000-0.055) Laboratory Tests Test 12/30/18 16:35 12/30/18 16:56 12/30/18 17:55 12/30/18 17:59 Urine Opiates Screen Neg (NEG) Urine Methadone Screen Neg (NEG) Urine Barbiturates Neg (NEG) Urine Phencyclidine Screen Neg (NEG) Urine Amphetamine/Methamphetamine Neg (NEG) Urine Benzodiazepines Screen Neg (NEG) Urine Cocaine Screen Neg (NEG) Urine Cannabinoids Screen Pos (NEG) Urine Ethyl Alcohol Neg (NEG) White Blood Count 9.8 x10^3/uL (4.0-11.0) Red Blood Count 4.56 x10^6/uL (3.50-5.40) Hemoglobin 11.4 g/dL (12.0-15.5) Hematocrit 36.0 % (36.0-47.0) Mean Corpuscular Volume 79 fL (79-100) Mean Corpuscular Hemoglobin 25 pg (25-35) Mean Corpuscular Hemoglobin Concent 32 g/dL (31-37) Red Cell Distribution Width 17.5 % (11.5-14.5) Platelet Count 360 x10^3/uL (140-400) Neutrophils (%) (Auto) 84 % (31-73) Lymphocytes (%) (Auto) 9 % (24-48) Monocytes (%) (Auto) 6 % (0-9) Eosinophils (%) (Auto) 0 % (0-3) Basophils (%) (Auto) 1 % (0-3) Neutrophils # (Auto) 8.2 x10^3/uL (1.8-7.7) Lymphocytes # (Auto) 0.9 x10^3/uL (1.0-4.8) Monocytes # (Auto) 0.6 x10^3/uL (0.0-1.1) Eosinophils # (Auto) 0.0 x10^3/uL (0.0-0.7) Basophils # (Auto) 0.0 x10^3/uL (0.0-0.2) Sodium Level 140 mmol/L (136-145) Potassium Level 3.5 mmol/L (3.5-5.1) Chloride Level 98 mmol/L (98-107) Carbon Dioxide Level 34 mmol/L (21-32) Anion Gap 8 (6-14) Blood Urea Nitrogen 10 mg/dL (7-20) Creatinine 1.0 mg/dL (0.6-1.0) Estimated GFR (Cockcroft-Gault) 67.5 BUN/Creatinine Ratio 10 (6-20) Glucose Level 159 mg/dL (70-99) Calcium Level 10.8 mg/dL (8.5-10.1) Total Bilirubin 0.5 mg/dL (0.2-1.0) Aspartate Amino Transf (AST/SGOT) 21 U/L (15-37) Alanine Aminotransferase (ALT/SGPT) 16 U/L (14-59) Alkaline Phosphatase 102 U/L (46-116) Troponin I Quantitative < 0.017 ng/mL (0.000-0.055) IY-Xtf-C-Type Natriuretic Peptide 1680 pg/mL (0-124) Total Protein 9.3 g/dL (6.4-8.2) Albumin 3.7 g/dL (3.4-5.0) Albumin/Globulin Ratio 0.7 (1.0-1.7) O2 Saturation 94 % (92-99) Arterial Blood pH 7.45 (7.35-7.45) Arterial Blood pCO2 at Patient Temp 50 mmHg (35-46) Arterial Blood pO2 at Patient Temp 71 mmHg (65-108) Arterial Blood HCO3 34 mmol/L (21-28) Arterial Blood Base Excess 9 mmol/L (-3-3) Oxyhemoglobin 93.1 % Methemoglobin 0.2 % (0.0-1.9) Carbon Monoxide, Quantitative 0.7 % (0.0-1.9) FiO2 2 lpm nc Prothrombin Time 13.3 SEC (11.7-14.0) Prothromb Time International Ratio 1.0 (0.8-1.1) Test 12/30/18 20:45 12/30/18 21:35 Glucose (Fingerstick) 217 mg/dL (70-99) Troponin I Quantitative < 0.017 ng/mL (0.000-0.055) Images Images Procedure(s) performed: MODERATE SEDATION: 75 MINUTES HISTORY The patient is a 62 year-old female with a history of : previous IA, coronary artery disease, hypertension, previous CABG (The CABG date was ), Pt having bradycardia and inapropriate chronotropic response that is going for a dual chamber permanent pacemaker. PROCEDURE NARRATIVE The pt was brought into the manufacturing laborer electively for insertion of a pacer after obtaining informed consent. The L shoulder area was prepped and draped in the usual fashion. Area infiltrated with Lido. Skin incised and a pocket was created with blunt dissection. The L subclavian was entered with Seldinger tech. in a 2 wire aproach. A peelaway sheath inserted over one of the wires. A [employer] Rishi MRI compatible pacer lead was advanced all the way to the RV. All parameters were good for sensing and capture. The sheath was then removed. A peelaway sheath was inserted over the other wire and then a [employer] Rishi MRI compatible pacer lead was then advanced to the RA. Once I was satisfied with the position of the lead in the RA and the parameters of sensing and capture the sheath was removed. Both leads were sutured in place. A [employer] R[employer] MRI compatible generator was then connected to the leads after verifiying the identity of each. The pocket was irrigated after the function of the pacer was checked and found to be normal. The generator was placed in the pocket and then the pocket was closed with 3 layers of running suture. Skin edges were aproximated with Dermabond. A dressing was applied over the area after the Dermabond was dry. Pt transfered back to her room in satisfactory condition after tolerating the procedure well. Conclusion This pt tolerated the insertion of a dual chamber pacer well. From a Cardiac standpoint she will follow up with Dr Pat as an out-pt. DICTATED and SIGNED BY: OSWALDO ARIAS MD DATE: 02/06/17 6621 CC: INDERJIT KOCH MD; OSWALDO ARIAS MD; CATHIE KNIGHT MD ~ T ABD PELV W/ IV CONTRST ONLY Indication: Mid abdominal pain, left abdominal pain for 2 day Technique: Postcontrast CT imaging was performed of the abdomen pelvis, multiplanar reconstruction images submitted. No oral contrast was given. One or more of the following individualized dose reduction techniques were utilized for this examination: 1. Automated exposure control 2. Adjustment of the mA and/or kV according to patient size 3. Use of iterative reconstruction technique. Comparison: October 19, 2016 Findings: There is some linear likely fibrotic change of the lower lobes bilaterally at the lung bases as seen previously. There are electronic leads from cardiac device was not fully included. No new focal abnormality is identified of the liver, spleen, pancreas. Both kidneys enhance, no hydronephrosis. There is slightly exophytic hypodense lesion of the inferior right kidney as seen previously about 1.9 cm, density measurements of a cyst at 8-9 Hounsfield units. There is no adrenal nodularity. Evaluation of bowel is limited without oral contrast, no bowel dilatation, free fluid, free air. There could be some mild small bowel wall thickening in the left upper quadrant of the abdomen although could be related to peristalsis and incomplete distention. There is again some laxity of the ventral fascia with apparently underlying mesh. There is also more discrete small fat-containing hernia in the left of the ventral abdomen pelvis previously containing short segment of small bowel which is not present in the hernia sac in today's exam, transverse hernia sac measurement of about 2.4 cm. There is also a small, shallow left ventral fat-containing hernia in the abdomen images 32 series 2 with neck about 1.7 cm, transverse hernia sac about 3 cm, no internal bowel. Appendix is not confidently identified if still present. There is mild colonic diverticulosis greatest of the sigmoid and distal transverse colon not associated with adjacent inflammatory-type change. There is multilevel lumbar facet hypertrophic change, grade 1 anterior spondylolisthesis L4-5., IMPRESSION: 1. There is a small fat-containing left pelvic ventral hernia, no internal bowel. There is also small shallow fat-containing left ventral abdominal hernia, no internal bowel. No significant localized inflammatory type change is seen about the bowel although a degree of mild small bowel wall thickening in the left abdomen as could be seen with enteritis is not excluded. Electronically signed by: Jerardo Webb MD (08/13/2018 8:33 PM) [facility] DICTATED and SIGNED BY: JERARDO WEBB MD DATE: 08/13/182032 Exam: Chest one view INDICATION: Chest pain TECHNIQUE: Frontal view of the chest Comparisons: 12/14/2018 FINDINGS: Sternotomy wires and pacer are again noted in unchanged position. Heart is enlarged. Pulmonary vessels are within normal limits. The lung and pleural spaces are clear. IMPRESSION: Cardiomegaly without acute pulmonary process. Electronically signed by: Kunal Harris MD (12/30/2018 11:34 PM) [facility] DICTATED and SIGNED BY: KUNAL HARRIS MD DATE: 12/30/18 2710 EXAM: Transesophageal echocardiogram with color flow Doppler. INDICATION Abnormal ECG Dyspnea Cardiac Disease: CAD Chest Pain PROCEDURE After obtaining informed consent, patient underwent transesophageal echo in the PACU. Type of Sedation : General Anesthesia Sedation was provided by anesthesiologist, see EMR for medications administered. Transesophageal probe was inserted and advanced into esophagus by Oswaldo Arias MD. The SUSAN was performed without complications. Throughout the procedure, the blood pressure, pulse oximetry, cardiac rhythm, and rate were monitored. The patient tolerated the procedure without adverse effects. Recovery from conscious sedation was uneventful and vital signs were stable. LEFT VENTRICLE The left ventricle is normal size. There is some mild apical dilatation. There appears to be mild concentric left ventricular hypertrophy. Left ventricle systolic function is normal. The Ejection Fraction is 50%. There is normal LV segmental wall motion. RIGHT VENTRICLE The right ventricle is normal size. The right ventricular systolic function is normal. ATRIA The left atrium appears normal in size. The right atrium appears normal in size. The interatrial septum is intact with no evidence for an atrial septal defect or patent foramen ovale as noted on 2-D or Doppler imaging. There is no thrombus noted in the left atrial appendage. AORTIC VALVE The aortic valve is normal in structure and function. The aortic valve is trileaflet. Doppler and Color Flow revealed no significant aortic regurgitation. MITRAL VALVE The mitral valve is normal in structure. Doppler and Color Flow revealed mild mi tral regurgitation. TRICUSPID VALVE The tricuspid valve is normal in structure. Doppler and Color Flow revealed mild tricuspid regurgitation. PULMONIC VALVE The pulmonary valve is normal in structure and function. Doppler and Color Flow revealed no pulmonic valvular regurgitation. GREAT VESSELS The aortic root is normal in size. The ascending aorta is normal in size. There is calcifications of the ascending aorta Normal pulmonary venous flow (Doppler). The IVC was visualized and appears normal in size. PERICARDIAL EFFUSION There is no pleural effusion. Critical Notification Critical Value: No <Conclusion> The left ventricle is normal size. There is some mild apical dilatation. There appears to be mild concentric left ventricular hypertrophy. Left ventricle systolic function is normal. The Ejection Fraction is 50%. The left atrium appears normal in size. The right atrium appears normal in size. The aortic valve is normal in structure and function. The aortic valve is trileaflet. Doppler and Color Flow revealed mild mitral regurgitation. Doppler and Color Flow revealed mild tricuspid regurgitation. The pulmonary valve is normal in structure and function. The ascending aorta is normal in size. There is calcifications of the ascending aorta DICTATED and SIGNED BY: OSWALDO ARIAS MD DATE: 01/08/171802 CC: INDERJIT KOCH MD; LÓPEZ BARRIOS MD; OSWALDO ARIAS MD ~ APPROVED REPORT Technologist: Suze Lewis RT (R) Nurse: patti hua RN Procedure(s) performed: Left heart catheterization, selective coronary angiography, selective angiography of the bypass grafts and left ventriculography Moderate sedation: 28 minutes INDICATION The indication(s) include : unstable angina . CSHA Clinical Frailty Scale [facility] Clinical Frailty Scale: Managing Well Heart Failure Heart Failure: Yes If Yes, Newly Diagnosed: No If Yes, HF Type: Systolic If Yes, NYHA Class: Class III PROCEDURE NARRATIVE After explaining the risks, benefits and alternative options, informed consent was obtained from patient. Patient was brought to the cardiac Abrasive Grader and her right groin prepped and draped in the usual fashion. 20 mL of 2% lidocaine was infiltrated into the skin and subcutaneous tissues for local anesthesia. Arterial access was obtained in the right common femoral artery and a 6 Telugu sheath was inserted. 6 Telugu JL4 and 6 Telugu JR4 catheters placed to perform selective angiography of the left and right coronary arteries. The 6 Telugu JR4 catheter was then used to perform selective angiography of the saphenous vein graft to the obtuse marginal branch and the left internal mammary artery graft to the left anterior descending artery. Finally, a 6 Telugu pigtail catheter was used to perform left ventriculography. Patient tolerated the procedure well. Hemostasis was achieved using Angio-Seal. There were no immediate complications. The following findings were noted. FINDINGS 1. Hemodynamics: Left ventricular end-diastolic pressure 20 mmHg. No pullback gradient across the aortic valve. 2. Left ventriculography: Akinetic distal anterior wall and the entire apical wall with ejection fraction estimated at 40%. No significant mitral regurgitation was seen. 3. Coronary and bypass graft angiography: a. The left main coronary artery arose from the left sinus of Valsalva, gave rise to the left anterior descending and left circumflex arteries and did not show any significant stenosis. b. The left anterior descending artery did not show any significant stenosis. c. The left circumflex artery showed 40% stenosis involving the proximal segment of the obtuse marginal branch. d. The right coronary artery was a large and dominant vessel arising from the right sinus of Valsalva that did not show any significant stenosis. e. The saphenous vein graft to the obtuse marginal branch was widely patent. d. The left internal mammary artery graft to the left anterior descending artery was patent. Conclusion 1. 40% stenosis involving the obtuse marginal branch of left circumflex artery without any other significant stenoses. The left internal mammary artery graft to the left anterior descending artery and the saphenous vein graft to the obtuse marginal branch were patent. Of note, patient seems to have had CABG for thrombus in left main coronary artery and left anterior descending artery in the past. No lesions were noted because the thrombus resolved. 2. Akinetic distal anterior wall and the entire apical wall with ejection fraction estimated at 40%. Recommendations Medical Therapy Signed by : Roger Aggarwal, Electronically Approved : 05/18/2018 12:25:07 PROCEDURE After obtaining informed consent, patient underwent transesophageal echo in the PACU. Type of Sedation : General Anesthesia Sedation was provided by anesthesiologist, see EMR for medications administered. Transesophageal probe was inserted and advanced into esophagus by Oswaldo Arias MD. The SUSAN was performed without complications. Throughout the procedure, the blood pressure, pulse oximetry, cardiac rhythm, and rate were monitored. The patient tolerated the procedure without adverse effects. Recovery from conscious sedation was uneventful and vital signs were stable. LEFT VENTRICLE The left ventricle is normal size. There is some mild apical dilatation. There appears to be mild concentric left ventricular hypertrophy. Left ventricle systolic function is normal. The Ejection Fraction is 50%. There is normal LV segmental wall motion. RIGHT VENTRICLE The right ventricle is normal size. The right ventricular systolic function is normal. ATRIA The left atrium appears normal in size. The right atrium appears normal in size. The interatrial septum is intact with no evidence for an atrial septal defect or patent foramen ovale as noted on 2-D or Doppler imaging. There is no thrombus noted in the left atrial appendage. AORTIC VALVE The aortic valve is normal in structure and function. The aortic valve is trileaflet. Doppler and Color Flow revealed no significant aortic regurgitation. MITRAL VALVE The mitral valve is normal in structure. Doppler and Color Flow revealed mild mitral regurgitation. TRICUSPID VALVE The tricuspid valve is normal in structure. Doppler and Color Flow revealed mild tricuspid regurgitation. PULMONIC VALVE The pulmonary valve is normal in structure and function. Doppler and Color Flow revealed no pulmonic valvular regurgitation. GREAT VESSELS The aortic root is normal in size. The ascending aorta is normal in size. There is calcifications of the ascending aorta Normal pulmonary venous flow (Doppler). The IVC was visualized and appears normal in size. PERICARDIAL EFFUSION There is no pleural effusion. Critical Notification Critical Value: No <Conclusion> The left ventricle is normal size. There is some mild apical dilatation. There appears to be mild concentric left ventricular hypertrophy. Left ventricle systolic function is normal. The Ejection Fraction is 50%. The left atrium appears normal in size. The right atrium appears normal in size. The aortic valve is normal in structure and function. The aortic valve is trileaflet. Doppler and Color Flow revealed mild mitral regurgitation. Doppler and Color Flow revealed mild tricuspid regurgitation. The pulmonary valve is normal in structure and function. The ascending aorta is normal in size. There is calcifications of the ascending aorta DICTATED and SIGNED BY: OSWALDO ARIAS MD VTE Prophylaxis Ordered VTE Prophylaxis Devices: Yes VTE Pharmacological Prophylaxi: Yes Assessment/Plan Assessment/Plan IMPRESSION 1. acute exac of hypercapnic, hypoxic resp failure 2. chest discomfort atypical 3. CAD 4. recent cath 40% stenosis involving the obtuse marginal branch of left circumflex artery without any other significant stenoses. The left internal mammary artery graft to the left anterior descending artery and the saphenous vein graft to the obtuse marginal branch were patent. Of note, patient seems to have had CABG for thrombus in left main coronary artery and left anterior descending artery in the past. No lesions were noted because the thrombus resolved. Akinetic distal anterior wall and the entire apical wall with ejection fraction estimated at 40%. 5. on cxr 12/30 Cardiomegaly without acute pulmonary process. 6, thc abuse 7. Extreme morbid obesity 8. hx noncompliance 9. hyperlipidemia 10. anxiety/ depression 11. small shallow fat-containing left ventral abdominal hernia, no internal bowel. No significant localized inflammatory type change is seen about the bowel on recent CT ABD 12. insertion of a dual chamber pacer 2016 plan o2 support cardiology consult tele duonebs qid IV rapid taper steroids admit dvt prophylaxis pulm consult CPAP support hs NEEDED home meds 59 min pt exam, chart review, > 50% of time spent with exam, chart review, pt care coordination JHON ZAPIEN MD Dec 31, 2018 08:16
[2018-12-31] MEDS: CALCIUM CARB/VIT D3 500/200 TABLET. PO SCH (08:57)
[2018-12-31] MEDS: FLUoxetine HCL 20 MG CAPSULE PO SCH (08:57)
[2018-12-31] MEDS: ASPIRIN ENTERIC COATED 81 MG TABLET.DR. PO SCH (08:57)
[2018-12-31] MEDS: METOPROLOL TART IMMED RELEASE 25 MG TABLET. PO SCH ×2 (08:57→20:18)
[2018-12-31] MEDS: CLOPIDOGREL BISULFATE 75 MG TABLET PO SCH (08:58)
[2018-12-31] MEDS: GLIMEPIRIDE 2 MG TABLET. PO SCH (08:58)
[2018-12-31] MEDS: FUROSEMIDE 80 MG TABLET. PO SCH ×2 (08:58→15:59)
[2018-12-31] MEDS: DOCUSATE SODIUM 100 MG CAPSULE. PO SCH ×2 (08:58→20:19)
[2018-12-31] MEDS ORDERED: FLU VAX QS 2019-20 (36MOS+)/PF 0.5 ML SYRINGE. VAX IM ONE (09:00)
[2018-12-31] MEDS: FAMOTIDINE 20 MG TABLET. PO SCH ×2 (09:01→20:13)
--- NOTE | 2018-12-31 13:00 | NUR ---
Pt BP after ECHO 172/84, HR in the 60's. Notified [facility]. Orders received for lisinopril 10mg PO daily and hydralazine 10mg IVP Q4hr PRN. Will continue to monitor.
[2018-12-31] MEDS ORDERED: ALBUTEROL SULFATE 2.5 MG/3 ML NEBU. INH PRN (13:45)
[2018-12-31] MEDS ORDERED: ALBUTEROL SULFATE 5 MG NEB PRN (13:45)
[2018-12-31] MEDS ORDERED: cloNIDine HCL 0.1 MG TABLET PO PRN (14:00)
[2018-12-31] MEDS ORDERED: DOCUSATE SODIUM 100 MG CAPSULE. PO PRN (14:00)
[2018-12-31] MEDS ORDERED: MAG HYDROX/ALUMINUM HYD/SIMETH 30 ML ORAL.SUSP PO PRN (14:00)
[2018-12-31] MEDS ORDERED: guaiFENesin ORAL 200 MG/10 ML LIQUID. PO PRN (14:00)
[2018-12-31] MEDS ORDERED: ONDANSETRON PF 4 MG/2 ML VIAL. IV PRN (14:00)
[2018-12-31] MEDS ORDERED: ACETAMINOPHEN 325 MG TABLET. PO PRN (14:00)
[2018-12-31] MEDS ORDERED: 0.9 % SODIUM CHLORIDE 10 ML DISP.SYRIN. IV PRN (14:00)
[2018-12-31] MEDS: CAPSAICIN 0.025% TOPICAL CREAM 60GM TUBE. TP PRN ×2 (14:04→20:28)
[2018-12-31] MEDS: methylPREDNISolone SOD SUCC PF 125 MG/2 ML VIAL. IV SCH ×2 (14:05→20:29)
--- NOTE | 2018-12-31 14:06 | NUR ---
SW following pt for dc planning. Chart reviewed and discussed with RN. Pt lives at home and is current with [facility], ; fax [phone]. Pt last admission was 2018 and pt was discharged with services with [facility]. MARINA will continue to follow pt.
--- NOTE | 2018-12-31 16:26 | PDOC ---
PULMONARY PROGRESS NOTES Vitals Vital Signs Date Time Temp Pulse Resp B/P (MAP) Pulse Ox O2 Delivery O2 Flow Rate FiO2 12/31/18 15:09 Nasal Cannula 2.0 12/31/18 15:00 98.2 62 18 133/45 (74) 99 98.2 General: Alert, No acute distress Lungs: Clear, Crackles Cardiovascular: S1, S2 Abdomen: Soft, Other Extremities: Other Labs Laboratory Tests Test 12/30/18 16:35 12/30/18 16:56 12/30/18 17:55 12/30/18 17:59 Urine Opiates Screen Neg (NEG) Urine Methadone Screen Neg (NEG) Urine Barbiturates Neg (NEG) Urine Phencyclidine Screen Neg (NEG) Urine Amphetamine/Methamphetamine Neg (NEG) Urine Benzodiazepines Screen Neg (NEG) Urine Cocaine Screen Neg (NEG) Urine Cannabinoids Screen Pos (NEG) Urine Ethyl Alcohol Neg (NEG) White Blood Count 9.8 x10^3/uL (4.0-11.0) Red Blood Count 4.56 x10^6/uL (3.50-5.40) Hemoglobin 11.4 g/dL (12.0-15.5) Hematocrit 36.0 % (36.0-47.0) Mean Corpuscular Volume 79 fL (79-100) Mean Corpuscular Hemoglobin 25 pg (25-35) Mean Corpuscular Hemoglobin Concent 32 g/dL (31-37) Red Cell Distribution Width 17.5 % (11.5-14.5) Platelet Count 360 x10^3/uL (140-400) Neutrophils (%) (Auto) 84 % (31-73) Lymphocytes (%) (Auto) 9 % (24-48) Monocytes (%) (Auto) 6 % (0-9) Eosinophils (%) (Auto) 0 % (0-3) Basophils (%) (Auto) 1 % (0-3) Neutrophils # (Auto) 8.2 x10^3/uL (1.8-7.7) Lymphocytes # (Auto) 0.9 x10^3/uL (1.0-4.8) Monocytes # (Auto) 0.6 x10^3/uL (0.0-1.1) Eosinophils # (Auto) 0.0 x10^3/uL (0.0-0.7) Basophils # (Auto) 0.0 x10^3/uL (0.0-0.2) Sodium Level 140 mmol/L (136-145) Potassium Level 3.5 mmol/L (3.5-5.1) Chloride Level 98 mmol/L (98-107) Carbon Dioxide Level 34 mmol/L (21-32) Anion Gap 8 (6-14) Blood Urea Nitrogen 10 mg/dL (7-20) Creatinine 1.0 mg/dL (0.6-1.0) Estimated GFR (Cockcroft-Gault) 67.5 BUN/Creatinine Ratio 10 (6-20) Glucose Level 159 mg/dL (70-99) Calcium Level 10.8 mg/dL (8.5-10.1) Total Bilirubin 0.5 mg/dL (0.2-1.0) Aspartate Amino Transf (AST/SGOT) 21 U/L (15-37) Alanine Aminotransferase (ALT/SGPT) 16 U/L (14-59) Alkaline Phosphatase 102 U/L (46-116) Troponin I Quantitative < 0.017 ng/mL (0.000-0.055) [id number]-[id number]-Type Natriuretic Peptide 1680 pg/mL (0-124) Total Protein 9.3 g/dL (6.4-8.2) Albumin 3.7 g/dL (3.4-5.0) Albumin/Globulin Ratio 0.7 (1.0-1.7) O2 Saturation 94 % (92-99) Arterial Blood pH 7.45 (7.35-7.45) Arterial Blood pCO2 at Patient Temp 50 mmHg (35-46) Arterial Blood pO2 at Patient Temp 71 mmHg (65-108) Arterial Blood HCO3 34 mmol/L (21-28) Arterial Blood Base Excess 9 mmol/L (-3-3) Oxyhemoglobin 93.1 % Methemoglobin 0.2 % (0.0-1.9) Carbon Monoxide, Quantitative 0.7 % (0.0-1.9) FiO2 2 lpm nc Prothrombin Time 13.3 SEC (11.7-14.0) Prothromb Time International Ratio 1.0 (0.8-1.1) Test 12/30/18 20:45 12/30/18 21:35 12/31/18 07:37 12/31/18 11:38 Glucose (Fingerstick) 217 mg/dL (70-99) 197 mg/dL (70-99) 215 mg/dL (70-99) Troponin I Quantitative < 0.017 ng/mL (0.000-0.055) Medications Active Scripts Medications Dose Route/Sig Max Daily Dose Days Date Category Dose Instructions Percocet 10-325 Mg Tablet (Oxycodone/Acetaminophen) 1 Each Tablet 2 Tab PO PRN Q4-6HRS PRN MDD 1 12/16/18 Rx [Percogesic] 1 Tab PO Q6-8HRS PRN 12/10/18 Rx Docusate Sodium 100 Mg Capsule 1 Cap PO BID 12/05/18 Reported Clopidogrel (Clopidogrel Bisulfate) 75 Mg Tablet 75 Mg PO [id number] 11/07/18 Rx Metoprolol Tartrate 25 Mg Tablet 25 Mg PO BID 08/30/18 Reported Ondansetron Odt (Ondansetron) 4 Mg Tab.rapdis 1 Tab PO PRN Q6-8HRS 08/13/18 Rx Capsaicin 60 Gm Cream..g. 60 Gm TP PRN TID 07/14/18 Reported apply to morgan feet Proair Hfa Inhaler (Albuterol Sulfate) 8.5 Gm Hfa.aer.ad 1 Puff INH PRN Q6HRS PRN 06/21/18 Rx Calcium 500 + Vit D 200 Caplet (Calcium Carbonate/Vitamin D3) 1 Each Tablet 1 Each PO DAILY 05/16/18 Reported Zolpidem Tartrate 5 Mg Tablet 5 Mg PO QHS 05/16/18 Reported Clonazepam (Clonazepam) 0.5 Mg Tablet 0.5 Mg PO TID 05/16/18 Reported Fluoxetine Hcl 20 Mg Capsule 1 Cap PO DAILY 05/16/18 Reported Famotidine 20 Mg Tablet 20 Mg PO BID 05/16/18 Reported Furosemide 80 Mg Tablet 80 Mg PO BID 10/09/17 Reported Albuterol Sulfate Conc Neb Soln (Albuterol Sulfate) 2.5 Mg/0.5 Ml Vial.neb 5 Mg NEB PRN PRN 10/07/17 Reported Amaryl (Glimepiride) 2 Mg Tablet 2 Mg PO DAILY 30 07/04/17 Rx NITROGLYCERIN SubLingual (Nitroglycerin) 0.4 Mg Tab.subl 0.4 Mg SL PRN Q5MIN PRN 11/01/16 Reported Atorvastatin Calcium 20 Mg Tablet 20 Mg PO HS 10/28/16 Reported Aspir 81 (Aspirin) 81 Mg Tablet. 1 Tab PO DAILY 10/28/16 Reported Impression . ADULT ONSET ASTHMA VIOLETTA SEC PUL HTN AGREE WITH CURRENT RX THANKS LYNN BISHOP MD Dec 31, 2018 16:26
--- NOTE | 2018-12-31 17:34 | CONS ---
DATE OF CONSULTATION: 12/31/2018 ATTENDING PHYSICIAN: Charlie Moser MD CONSULTING PHYSICIAN: Lynn Moses MD REASON FOR CONSULTATION: The patient is seen in pulmonary consultation at the request of Dr. Moser for increasing shortness of air. HISTORY OF PRESENT ILLNESS: The patient is a 63-year-old who presents with a 2-day history of increasing shortness of air, wheezing. She tried the nebulized treatment on Friday with some help. She presented because of increasing shortness of air, wheezing, chest pain. She has no prior history of smoking, wears oxygen at home on a p.r.n. basis. She also has a history of obstructive sleep apnea, but currently does not have a CPAP unit. She recently moved here from [place]. She has never been diagnosed with adult-onset asthma. She has mild lower extremity edema, some paroxysmal nocturnal dyspnea. She presented to the Emergency Room and needed oxygen supplementation at 2 liters per nasal cannula. She had lab work performed in the Emergency Department, I reviewed it. Her arterial blood gas revealed a pH of 7.45, PaCO2 of 50 and pO2 of 71 on 2 liters. White count was normal. Hemoglobin and hematocrit were noted. Electrolytes were noted. Chest x-ray was reviewed, no acute infiltrates, cardiomegaly was present. PAST MEDICAL HISTORY: Otherwise remarkable for obstructive sleep apnea, currently not being treated; questionable undiagnosed obstructive lung disease of the asthmatic type; type 2 diabetes; gastroesophageal reflux; cholesterol; hypertension; previous myocardial infarction; coronary artery disease with previous coronary artery bypass grafting. PAST SURGICAL HISTORY: Status post coronary artery bypass grafting, hernia repair, breast reduction. ALLERGIES: IBUPROFEN. REVIEW OF SYSTEMS: As indicated above. CONSTITUTIONAL: No fever or chills. EYES: No change in visual acuity. HENT: No nasal congestion or sore throat. PULMONARY: As indicated above. CARDIOVASCULAR: As indicated above. GASTROINTESTINAL: No nausea, vomiting, diarrhea. GENITOURINARY: No dysuria or frequency. MUSCULOSKELETAL: No localized muscle aches or joint pains. SKIN: No new skin rashes. NEUROLOGIC: No headaches, diplopia, or blurred vision. MEDICATIONS: Her medication list from home was reviewed. She was on albuterol nebulized p.r.n. and p.r.n. albuterol HFA; otherwise, she was on no maintenance medications. FAMILY HISTORY: No family history of lung disorders or asthma. SOCIAL HISTORY: She has never smoked. PHYSICAL EXAMINATION: GENERAL: Morbid obese individual with a body mass index of 40 on 3 liters of oxygen supplementation. HEENT: Eyes: The sclerae were nonicteric. NECK: Jugular venous distention was not elevated. No lymphadenopathy. CHEST: Full expansion. LUNGS: Poor airway flow with no wheezes. CARDIOVASCULAR: Regular rate and rhythm with S1, S2, no S3. ABDOMEN: Soft, nontender, nondistended. EXTREMITIES: No clubbing, cyanosis, or edema. DIAGNOSTIC DATA: Chest x-ray as indicated above. IMPRESSION: 1. Adult-onset asthma. 2. Progressive dyspnea is secondary to above along with deconditioning, morbid obesity, and secondary pulmonary hypertension. 3. Obstructive sleep apnea. 4. Coronary artery disease. 5. Previous myocardial infarction. 6. Hyperlipidemia. 7. Anxiety disorder. 8. Peripheral neuropathy. PLAN: 1. The patient will be placed on Flovent 220 two puffs twice daily once discharged. 2. Treat current condition with steroids and nebulized treatments. 3. Follow Cardiology input. 4. Outpatient polysomnogram. 5. DVT and GI prophylaxis. 6. No need for antibiotics. The patient instructed on the importance of weight reduction and exercise regimen program. I do appreciate the privilege in sharing in the patient's care. LYNN BISHOP MD DR: JULIET/amrik JOB#: [id number] / [id number]
[2018-12-31] MEDS: ATORVASTATIN CALCIUM 20 MG TABLET PO SCH (20:13)
[2018-12-31] MEDS: ENOXAPARIN 40 MG/0.4 ML SYRINGE. SQ SCH (20:20)
[2018-12-31] MEDS ORDERED: DEXTROSE 50% 25 GM / 50ML DISP.SYRIN. IV PRN (21:00)
[2018-12-31] MEDS ORDERED: INSULIN LISPRO 300 UNITS/3 ML VIAL. SQ ONE (21:30)
[2018-12-31] MEDS ORDERED: INSULIN GLARGINE SYRINGE. SQ SCH (21:30)
--- NOTE | 2018-12-31 22:37 | NUR ---
Spoke to Dr. James regarding pt's elevated bg tonight and received orders for insulin tonight, sliding scale; high dose and lantus insulin to start tomorrow. No further complaints. Will continue to monitor.
[2019-01-01] MEDS: oxyCODONE/APAP 10/325 1 TAB TABLET PO PRN ×6 (01:46→23:22)
[2019-01-01 03:15] VITALS: BP 140/58
[2019-01-01] MEDS: methylPREDNISolone SOD SUCC PF 125 MG/2 ML VIAL. IV SCH (05:58)
[2019-01-01] MEDS: CAPSAICIN 0.025% TOPICAL CREAM 60GM TUBE. TP PRN (05:59)
[2019-01-01] MEDS: IPRATRPIUM/ALBUTEROL 0.5/2.5MG 3 ML NEBU. NEB SCH ×4 (07:06→20:48)
[2019-01-01 07:24] VITALS: BP 153/71
--- NOTE | 2019-01-01 08:04 | PDOC ---
PROGRESS NOTES History of Present Illness History of Present Illness VTE Prophylaxis Ordered VTE Prophylaxis Devices: Yes VTE Pharmacological Prophylaxi: Yes Assessment/Plan Assessment/Plan IMPRESSION 1. acute exac of hypercapnic, hypoxic resp failure 2. chest discomfort atypical 3. CAD 4. recent cath 40% stenosis involving the obtuse marginal branch of left circumflex artery without any other significant stenoses. The left internal mammary artery graft to the left anterior descending artery and the saphenous vein graft to the obtuse marginal branch were patent. Of note, patient seems to have had CABG for thrombus in left main coronary artery and left anterior descending artery in the past. No lesions were noted because the thrombus resolved. Akinetic distal anterior wall and the entire apical wall with ejection fraction estimated at 40%. 5. on cxr 12/30 Cardiomegaly without acute pulmonary process. 6, thc abuse 7. Extreme morbid obesity 8. hx noncompliance 9. hyperlipidemia 10. anxiety/ depression 11. small shallow fat-containing left ventral abdominal hernia, no internal bowel. No significant localized inflammatory type change is seen about the bowel on recent CT ABD 12. insertion of a dual chamber pacer 2016 13. uncontrolled glucose plan o2 support cardiology consult tele duone qid IV rapid taper steroids admit dvt prophylaxis pulm consult CPAP support hs NEEDED home meds inc lantus to 18 units sq q hs 29 min pt exam, chart review, > 50% of time spent with exam, chart review, pt care coordination Vitals Vitals Vital Signs Date Time Temp Pulse Resp B/P (MAP) Pulse Ox O2 Delivery O2 Flow Rate FiO2 01/01/19 07:24 97.7 51 18 153/71 (98) 99 Nasal Cannula 2.0 97.7 Physical Exam General: Alert, Oriented X3, Cooperative, No acute distress Heart: Regular rate Lungs: Clear, Crackles Abdomen: Soft Extremities: No cyanosis, No edema Labs LABS Laboratory Tests Test 12/31/18 11:38 12/31/18 17:02 12/31/18 20:24 Glucose (Fingerstick) 215 mg/dL (70-99) 207 mg/dL (70-99) 363 mg/dL (70-99) Comment Review of Relevant I have reviewed the following items nolan (where applicable) has been applied. Labs Laboratory Tests Test 12/30/18 16:35 12/30/18 16:56 12/30/18 17:55 12/30/18 17:59 Urine Opiates Screen Neg (NEG) Urine Methadone Screen Neg (NEG) Urine Barbiturates Neg (NEG) Urine Phencyclidine Screen Neg (NEG) Urine Amphetamine/Methamphetamine Neg (NEG) Urine Benzodiazepines Screen Neg (NEG) Urine Cocaine Screen Neg (NEG) Urine Cannabinoids Screen Pos (NEG) Urine Ethyl Alcohol Neg (NEG) White Blood Count 9.8 x10^3/uL (4.0-11.0) Red Blood Count 4.56 x10^6/uL (3.50-5.40) Hemoglobin 11.4 g/dL (12.0-15.5) Hematocrit 36.0 % (36.0-47.0) Mean Corpuscular Volume 79 fL (79-100) Mean Corpuscular Hemoglobin 25 pg (25-35) Mean Corpuscular Hemoglobin Concent 32 g/dL (31-37) Red Cell Distribution Width 17.5 % (11.5-14.5) Platelet Count 360 x10^3/uL (140-400) Neutrophils (%) (Auto) 84 % (31-73) Lymphocytes (%) (Auto) 9 % (24-48) Monocytes (%) (Auto) 6 % (0-9) Eosinophils (%) (Auto) 0 % (0-3) Basophils (%) (Auto) 1 % (0-3) Neutrophils # (Auto) 8.2 x10^3/uL (1.8-7.7) Lymphocytes # (Auto) 0.9 x10^3/uL (1.0-4.8) Monocytes # (Auto) 0.6 x10^3/uL (0.0-1.1) Eosinophils # (Auto) 0.0 x10^3/uL (0.0-0.7) Basophils # (Auto) 0.0 x10^3/uL (0.0-0.2) Sodium Level 140 mmol/L (136-145) Potassium Level 3.5 mmol/L (3.5-5.1) Chloride Level 98 mmol/L (98-107) Carbon Dioxide Level 34 mmol/L (21-32) Anion Gap 8 (6-14) Blood Urea Nitrogen 10 mg/dL (7-20) Creatinine 1.0 mg/dL (0.6-1.0) Estimated GFR (Cockcroft-Gault) 67.5 BUN/Creatinine Ratio 10 (6-20) Glucose Level 159 mg/dL (70-99) Calcium Level 10.8 mg/dL (8.5-10.1) Total Bilirubin 0.5 mg/dL (0.2-1.0) Aspartate Amino Transf (AST/SGOT) 21 U/L (15-37) Alanine Aminotransferase (ALT/SGPT) 16 U/L (14-59) Alkaline Phosphatase 102 U/L (46-116) Troponin I Quantitative < 0.017 ng/mL (0.000-0.055) RI-Flh-W-Type Natriuretic Peptide 1680 pg/mL (0-124) Total Protein 9.3 g/dL (6.4-8.2) Albumin 3.7 g/dL (3.4-5.0) Albumin/Globulin Ratio 0.7 (1.0-1.7) O2 Saturation 94 % (92-99) Arterial Blood pH 7.45 (7.35-7.45) Arterial Blood pCO2 at Patient Temp 50 mmHg (35-46) Arterial Blood pO2 at Patient Temp 71 mmHg (65-108) Arterial Blood HCO3 34 mmol/L (21-28) Arterial Blood Base Excess 9 mmol/L (-3-3) Oxyhemoglobin 93.1 % Methemoglobin 0.2 % (0.0-1.9) Carbon Monoxide, Quantitative 0.7 % (0.0-1.9) FiO2 2 lpm nc Prothrombin Time 13.3 SEC (11.7-14.0) Prothromb Time International Ratio 1.0 (0.8-1.1) Test 12/30/18 20:45 12/30/18 21:35 12/31/18 07:37 12/31/18 11:38 Glucose (Fingerstick) 217 mg/dL (70-99) 197 mg/dL (70-99) 215 mg/dL (70-99) Troponin I Quantitative < 0.017 ng/mL (0.000-0.055) Test 12/31/18 17:02 12/31/18 20:24 Glucose (Fingerstick) 207 mg/dL (70-99) 363 mg/dL (70-99) Laboratory Tests Test 12/31/18 11:38 12/31/18 17:02 12/31/18 20:24 Glucose (Fingerstick) 215 mg/dL (70-99) 207 mg/dL (70-99) 363 mg/dL (70-99) Medications Current Medications Albuterol Sulfate (Ventolin Neb Soln) 2.5 mg 1X ONCE NEB Last administered on 12/30/18at 17:42; Start 12/30/18 at 17:00; Stop 12/30/18 at 17:03; Status DC Methylprednisolone Sodium Succinate (SOLU-Medrol 125MG VIAL) 62.5 mg 1X ONCE IV Last administered on 12/30/18at 17:31; Start 12/30/18 at 17:00; Stop 12/30/18 at 17:03; Status DC Morphine Sulfate (Morphine Sulfate) 1 mg 1X ONCE IV Last administered on 12/30/18at 17:33; Start 12/30/18 at 17:00; Stop 12/30/18 at 17:03; Status DC Ondansetron HCl (Zofran) 4 mg 1X ONCE IV Last administered on 12/30/18at 17:29; Start 12/30/18 at 17:15; Stop 12/30/18 at 17:16; Status DC Morphine Sulfate (Morphine Sulfate) 1 mg 1X ONCE IV Last administered on 12/30/18at 19:14; Start 12/30/18 at 18:45; Stop 12/30/18 at 18:46; Status DC Ondansetron HCl (Zofran) 4 mg PRN Q8HRS PRN IV NAUSEA/VOMITING; Start 12/30/18 at 19:00; Stop 12/31/18 at 18:59; Status DC Fentanyl Citrate (Fentanyl 2ml Vial) 50 mcg PRN Q1HR PRN IV PAIN; Start 12/30/18 at 19:00; Stop 12/31/18 at 18:59; Status DC Acetaminophen (Tylenol) 650 mg PRN Q4HRS PRN PO FEVER; Start 12/30/18 at 19:00; Stop 12/30/18 at 23:13; Status DC Albuterol/ Ipratropium (Duoneb) 3 ml RTQID NEB Last administered on 12/31/18at 19:40; Start 12/30/18 at 20:00; Stop 12/31/18 at 19:59; Status DC Aspirin (Ecotrin) 81 mg DAILY PO Last administered on 12/31/18 08:57; Start 12/31/18 at 09:00 Atorvastatin Calcium (Lipitor) 20 mg HS PO Last administered on 12/31/18 20:13; Start 12/31/18 at 21:00 Calcium/Vitamin D (Oscal D 500mg/ 200uts) 1 tab DAILY PO Last administered on 12/31/18 08:57; Start 12/31/18 at 09:00 Clonazepam (KlonoPIN) 0.5 mg TID PO Last administered on 12/31/18 20:19; Start 12/31/18 at 01:00 Clopidogrel Bisulfate (Plavix) 75 mg DAILYWBKFT PO Last administered on 12/31/18 08:58; Start 12/31/18 at 08:00 Docusate Sodium (Colace) 100 mg BID PO Last administered on 12/31/18 20:19; Start 12/31/18 at 09:00 Famotidine (Pepcid) 20 mg BID PO Last administered on 12/31/18 20:13; Start 12/31/18 at 09:00 Fluoxetine HCl (PROzac) 20 mg DAILY PO Last administered on 12/31/18 08:57; Start 12/31/18 at 09:00 Furosemide (Lasix) 80 mg BID94 PO Last administered on 12/31/18 15:59; Start 12/31/18 at 09:00 Glimepiride (Amaryl) 2 mg DAILY PO Last administered on 12/31/18 08:58; Start 12/31/18 at 09:00 Metoprolol Tartrate (Lopressor) 25 mg BID PO Last administered on 12/31/18 20:18; Start 12/31/18 at 09:00 Nitroglycerin (Nitrostat) 0.4 mg PRN Q5MIN PRN SL CHEST PAIN; Start 12/30/18 at 23:00 Ondansetron HCl (Zofran Odt) 4 mg PRN Q6HRS PRN PO NAUSEA/VOMITING 1ST CHOICE; Start 12/30/18 at 23:00 Oxycodone/ Acetaminophen (Percocet 10/325) 2 tab PRN Q4HRS PRN PO SEVERE PAIN 7-10 Last administered on 01/01/19 05:59; Start 12/30/18 at 23:00 Zolpidem Tartrate (Ambien) 5 mg QHS PO Last administered on 12/31/18at 20:18; Start 12/31/18 at 01:00 Acetaminophen (Tylenol) 650 mg PRN Q6HRS PRN PO MILD PAIN / TEMP; Start 12/30/18 at 23:15 Influenza Virus Vaccine Quadrival (Afluria Quad 2019-20 (3yr Up) Syringe) 0.5 ml ONCE ONCE VAX IM Last administered on 12/31/18at 08:54; Start 12/31/18 at 09:00; Stop 12/31/18 at 09:01; Status DC Capsaicin (Zostrix) 60 tre PRN TID PRN TP PAIN Last administered on 01/01/19at 05:59; Start 12/31/18 at 13:45 Albuterol Sulfate (Ventolin Neb Soln) 2.5 mg PRN Q6HRS PRN INH SHORTNESS OF BREATH; Start 12/31/18 at 13:45 Non-Formulary Medication (Albuterol Sulfate (Albuterol Sulfate Conc Neb Soln)) 5 mg PRN PRN NEB WHEEZING; Start 12/31/18 at 13:45; Status UNV Methylprednisolone Sodium Succinate (SOLU-Medrol 125MG VIAL) 60 mg Q8HRS IV Last administered on 01/01/19at 05:58; Start 12/31/18 at 14:00 Sodium Chloride (Normal Saline Flush) 3 ml QSHIFT PRN IV AFTER MEDS AND BLOOD DRAWS; Start 12/31/18 at 14:00 Ondansetron HCl (Zofran) 4 mg PRN Q4HRS PRN IV NAUSEA/VOMITING; Start 12/31/18 at 14:00 Acetaminophen (Tylenol) 650 mg PRN Q4HRS PRN PO TEMP OVER 100.4F OR MILD PAIN; Start 12/31/18 at 14:00 Al Hydroxide/Mg Hydroxide (Mylanta Plus Xs) 30 ml PRN DAILY PRN PO HEARTBURN / GAS; Start 12/31/18 at 14:00 Clonidine HCl (Catapres) 0.1 mg PRN Q6HRS PRN PO SBP>160 OR DBP>90; Start 12/31/18 at 14:00 Docusate Sodium (Colace) 100 mg PRN BID PRN PO CONSTIPATION; Start 12/31/18 at 14:00 Guaifenesin (Robitussin) 200 mg PRN Q4HRS PRN PO COUGH; Start 12/31/18 at 14:00 Enoxaparin Sodium (Lovenox 40mg Syringe) 40 mg Q24H SQ Last administered on 12/31/18at 20:20; Start 12/31/18 at 21:00 Insulin Human Lispro (HumaLOG) 15 units ONCE ONCE SQ Last administered on 12/31/18at 21:33; Start 12/31/18 at 21:30; Stop 12/31/18 at 21:31; Status DC Insulin Glargine (Lantus Syringe) 15 unit QHS SQ ; Start 12/31/18 at 21:30 Insulin Human Lispro (HumaLOG) 0-9 UNITS TIDWMEALS SQ ; Start 01/01/19 at 08:00 Dextrose (Dextrose 50%-Water Syringe) 12.5 gm PRN Q15MIN PRN IV SEE COMMENTS; Start 12/31/18 at 21:00 Albuterol/ Ipratropium (Duoneb) 3 ml RTQID NEB Last administered on 01/01/19at 07:06; Start 01/01/19 at 08:00 Active Scripts Active Percocet 10-325 Mg Tablet (Oxycodone/Acetaminophen) 1 Each Tablet 2 Tab PO PRN Q4-6HRS PRN MDD 1 [Percogesic] 1 Tab PO Q6-8HRS PRN Clopidogrel (Clopidogrel Bisulfate) 75 Mg Tablet 75 Mg PO DAILYWBKFT Ondansetron Odt (Ondansetron) 4 Mg Tab.rapdis 1 Tab PO PRN Q6-8HRS Proair Hfa Inhaler (Albuterol Sulfate) 8.5 Gm Hfa.aer.ad 1 Puff INH PRN Q6HRS PRN Amaryl (Glimepiride) 2 Mg Tablet 2 Mg PO DAILY 30 Days Reported Docusate Sodium 100 Mg Capsule 1 Cap PO BID Metoprolol Tartrate 25 Mg Tablet 25 Mg PO BID Capsaicin 60 Gm Cream..g. 60 Gm TP PRN TID apply to morgan feet Calcium 500 + Vit D 200 Caplet (Calcium Carbonate/Vitamin D3) 1 Each Tablet 1 Each PO DAILY Zolpidem Tartrate 5 Mg Tablet 5 Mg PO QHS Clonazepam (Clonazepam) 0.5 Mg Tablet 0.5 Mg PO TID Fluoxetine Hcl 20 Mg Capsule 1 Cap PO DAILY Famotidine 20 Mg Tablet 20 Mg PO BID Furosemide 80 Mg Tablet 80 Mg PO BID Albuterol Sulfate Conc Neb Soln (Albuterol Sulfate) 2.5 Mg/0.5 Ml Vial.neb 5 Mg NEB PRN PRN NITROGLYCERIN SubLingual (Nitroglycerin) 0.4 Mg Tab.subl 0.4 Mg SL PRN Q5MIN PRN Atorvastatin Calcium 20 Mg Tablet 20 Mg PO HS Aspir 81 (Aspirin) 81 Mg Tablet.dr 1 Tab PO DAILY Vitals/I & O Vital Sign - Last 24 Hours 12/31/18 12/31/18 12/31/18 12/31/18 08:05 08:57 11:08 11:09 Temp 98.3 98.3 Pulse 71 60 Resp 18 B/P (MAP) 142/47 (78) 176/61 141/60 (87) Pulse Ox 98 O2 Delivery Nasal Cannula Nasal Cannula O2 Flow Rate 2.0 2.0 12/31/18 12/31/18 12/31/18 12/31/18 15:00 15:09 19:40 19:50 Temp 98.2 98.3 98.2 98.3 Pulse 62 60 Resp 18 18 B/P (MAP) 133/45 (74) 134/41 (72) Pulse Ox 99 98 96 O2 Delivery Nasal Cannula Nasal Cannula Nasal Cannula Nasal Cannula O2 Flow Rate 2.0 2.0 2.0 2.0 12/31/18 12/31/18 12/31/18 12/31/18 20:18 20:28 21:28 23:39 Temp 97.6 97.6 Pulse 60 Resp 20 B/P (MAP) 148/47 165/83 (110) Pulse Ox 99 O2 Delivery Room Air Room Air Nasal Cannula O2 Flow Rate 2.0 01/01/19 01/01/19 01/01/19 01/01/19 01:46 02:46 03:15 05:59 Temp 97.6 97.6 Pulse 60 Resp 18 B/P (MAP) 140/58 (85) Pulse Ox 99 97 O2 Delivery Nasal Cannula Nasal Cannula Nasal Cannula Nasal Cannula O2 Flow Rate 2.0 2.0 01/01/19 01/01/19 07:06 07:24 Temp 97.7 97.7 Pulse 51 Resp 18 B/P (MAP) 153/71 (98) Pulse Ox 98 99 O2 Delivery Nasal Cannula Nasal Cannula O2 Flow Rate 2.0 2.0 Intake and Output0 12/31/18 12/31/18 01/01/19 14:59 22:59 06:59 Intake Total 360 ml 100 ml 210 ml Balance 360 ml 100 ml 210 ml JHON ZAPIEN MD Jan 01, 2019 08:04
[2019-01-01] MEDS: clonazePAM 0.5 MG TABLET PO SCH ×3 (08:32→20:36)
[2019-01-01] MEDS: FUROSEMIDE 80 MG TABLET. PO SCH ×2 (08:32→17:53)
[2019-01-01] MEDS: ASPIRIN ENTERIC COATED 81 MG TABLET.DR. PO SCH (08:32)
[2019-01-01] MEDS: FLUoxetine HCL 20 MG CAPSULE PO SCH (08:32)
[2019-01-01] MEDS: CLOPIDOGREL BISULFATE 75 MG TABLET PO SCH (08:32)
[2019-01-01] MEDS: FAMOTIDINE 20 MG TABLET. PO SCH ×2 (08:32→20:36)
[2019-01-01] MEDS: DOCUSATE SODIUM 100 MG CAPSULE. PO SCH ×2 (08:32→20:36)
[2019-01-01] MEDS: METOPROLOL TART IMMED RELEASE 25 MG TABLET. PO SCH ×2 (08:33→20:37)
[2019-01-01] MEDS: CALCIUM CARB/VIT D3 500/200 TABLET. PO SCH (08:33)
[2019-01-01] MEDS: GLIMEPIRIDE 2 MG TABLET. PO SCH (08:33)
[2019-01-01] MEDS: INSULIN LISPRO 300 UNITS/3 ML VIAL. SQ SCH ×3 (08:42→17:55)
--- NOTE | 2019-01-01 10:49 | PDOC ---
PULMONARY PROGRESS NOTES Subjective PT STILL SOA NO CHEST PAIN Vitals Vital Signs Date Time Temp Pulse Resp B/P (MAP) Pulse Ox O2 Delivery O2 Flow Rate FiO2 01/01/19 08:33 77 153/71 01/01/19 08:00 Nasal Cannula 2.0 01/01/19 07:24 97.7 18 99 97.7 ROS: No Nausea, No Chest Pain, No Abdominal Pain, No Increase Cough General: Alert, No acute distress Lungs: Clear Cardiovascular: S1, S2 Abdomen: Soft, Other Neuro Exam: Alert Extremities: No Edema, Other Skin: Warm Labs Laboratory Tests Test 12/30/18 16:35 12/30/18 16:56 12/30/18 17:55 12/30/18 17:59 Urine Opiates Screen Neg (NEG) Urine Methadone Screen Neg (NEG) Urine Barbiturates Neg (NEG) Urine Phencyclidine Screen Neg (NEG) Urine Amphetamine/Methamphetamine Neg (NEG) Urine Benzodiazepines Screen Neg (NEG) Urine Cocaine Screen Neg (NEG) Urine Cannabinoids Screen Pos (NEG) Urine Ethyl Alcohol Neg (NEG) White Blood Count 9.8 x10^3/uL (4.0-11.0) Red Blood Count 4.56 x10^6/uL (3.50-5.40) Hemoglobin 11.4 g/dL (12.0-15.5) Hematocrit 36.0 % (36.0-47.0) Mean Corpuscular Volume 79 fL (79-100) Mean Corpuscular Hemoglobin 25 pg (25-35) Mean Corpuscular Hemoglobin Concent 32 g/dL (31-37) Red Cell Distribution Width 17.5 % (11.5-14.5) Platelet Count 360 x10^3/uL (140-400) Neutrophils (%) (Auto) 84 % (31-73) Lymphocytes (%) (Auto) 9 % (24-48) Monocytes (%) (Auto) 6 % (0-9) Eosinophils (%) (Auto) 0 % (0-3) Basophils (%) (Auto) 1 % (0-3) Neutrophils # (Auto) 8.2 x10^3/uL (1.8-7.7) Lymphocytes # (Auto) 0.9 x10^3/uL (1.0-4.8) Monocytes # (Auto) 0.6 x10^3/uL (0.0-1.1) Eosinophils # (Auto) 0.0 x10^3/uL (0.0-0.7) Basophils # (Auto) 0.0 x10^3/uL (0.0-0.2) Sodium Level 140 mmol/L (136-145) Potassium Level 3.5 mmol/L (3.5-5.1) Chloride Level 98 mmol/L (98-107) Carbon Dioxide Level 34 mmol/L (21-32) Anion Gap 8 (6-14) Blood Urea Nitrogen 10 mg/dL (7-20) Creatinine 1.0 mg/dL (0.6-1.0) Estimated GFR (Cockcroft-Gault) 67.5 BUN/Creatinine Ratio 10 (6-20) Glucose Level 159 mg/dL (70-99) Calcium Level 10.8 mg/dL (8.5-10.1) Total Bilirubin 0.5 mg/dL (0.2-1.0) Aspartate Amino Transf (AST/SGOT) 21 U/L (15-37) Alanine Aminotransferase (ALT/SGPT) 16 U/L (14-59) Alkaline Phosphatase 102 U/L (46-116) Troponin I Quantitative < 0.017 ng/mL (0.000-0.055) TM-Wkc-G-Type Natriuretic Peptide 1680 pg/mL (0-124) Total Protein 9.3 g/dL (6.4-8.2) Albumin 3.7 g/dL (3.4-5.0) Albumin/Globulin Ratio 0.7 (1.0-1.7) O2 Saturation 94 % (92-99) Arterial Blood pH 7.45 (7.35-7.45) Arterial Blood pCO2 at Patient Temp 50 mmHg (35-46) Arterial Blood pO2 at Patient Temp 71 mmHg (65-108) Arterial Blood HCO3 34 mmol/L (21-28) Arterial Blood Base Excess 9 mmol/L (-3-3) Oxyhemoglobin 93.1 % Methemoglobin 0.2 % (0.0-1.9) Carbon Monoxide, Quantitative 0.7 % (0.0-1.9) FiO2 2 lpm nc Prothrombin Time 13.3 SEC (11.7-14.0) Prothromb Time International Ratio 1.0 (0.8-1.1) Test 10/9/19 20:45 12/30/18 21:35 12/31/18 07:37 12/31/18 11:38 Glucose (Fingerstick) 217 mg/dL (70-99) 197 mg/dL (70-99) 215 mg/dL (70-99) Troponin I Quantitative < 0.017 ng/mL (0.000-0.055) Test 12/31/18 17:02 12/31/18 20:24 01/01/19 08:15 Glucose (Fingerstick) 207 mg/dL (70-99) 363 mg/dL (70-99) 231 mg/dL (70-99) Laboratory Tests Test 12/31/18 11:38 12/31/18 17:02 12/31/18 20:24 01/01/19 08:15 Glucose (Fingerstick) 215 mg/dL (70-99) 207 mg/dL (70-99) 363 mg/dL (70-99) 231 mg/dL (70-99) Medications Active Scripts Medications Dose Route/Sig Max Daily Dose Days Date Category Dose Instructions Percocet 10-325 Mg Tablet (Oxycodone/Acetaminophen) 1 Each Tablet 2 Tab PO PRN Q4-6HRS PRN MDD 1 12/16/18 Rx [Percogesic] 1 Tab PO Q6-8HRS PRN 12/10/18 Rx Docusate Sodium 100 Mg Capsule 1 Cap PO BID 12/05/18 Reported Clopidogrel (Clopidogrel Bisulfate) 75 Mg Tablet 75 Mg PO DAILYWBKFT 11/07/18 Rx Metoprolol Tartrate 25 Mg Tablet 25 Mg PO BID 08/30/18 Reported Ondansetron Odt (Ondansetron) 4 Mg Tab.rapdis 1 Tab PO PRN Q6-8HRS 08/13/18 Rx Capsaicin 60 Gm Cream..g. 60 Gm TP PRN TID 07/14/18 Reported apply to morgan feet Proair Hfa Inhaler (Albuterol Sulfate) 8.5 Gm Hfa.aer.ad 1 Puff INH PRN Q6HRS PRN 06/21/18 Rx Calcium 500 + Vit D 200 Caplet (Calcium Carbonate/Vitamin D3) 1 Each Tablet 1 Each PO DAILY 05/16/18 Reported Zolpidem Tartrate 5 Mg Tablet 5 Mg PO QHS 05/16/18 Reported Clonazepam (Clonazepam) 0.5 Mg Tablet 0.5 Mg PO TID 05/16/18 Reported Fluoxetine Hcl 20 Mg Capsule 1 Cap PO DAILY 05/16/18 Reported Famotidine 20 Mg Tablet 20 Mg PO BID 05/16/18 Reported Furosemide 80 Mg Tablet 80 Mg PO BID 10/09/17 Reported Albuterol Sulfate Conc Neb Soln (Albuterol Sulfate) 2.5 Mg/0.5 Ml Vial.neb 5 Mg NEB PRN PRN 10/07/17 Reported Amaryl (Glimepiride) 2 Mg Tablet 2 Mg PO DAILY 30 07/04/17 Rx NITROGLYCERIN SubLingual (Nitroglycerin) 0.4 Mg Tab.subl 0.4 Mg SL PRN Q5MIN PRN 11/01/16 Reported Atorvastatin Calcium 20 Mg Tablet 20 Mg PO HS 10/28/16 Reported Aspir 81 (Aspirin) 81 Mg Tablet.dr 1 Tab PO DAILY 10/28/16 Reported Impression . IMPRESSION: 1. Adult-onset asthma. 2. Progressive dyspnea is secondary to above along with deconditioning, morbid obesity, and secondary pulmonary hypertension. 3. Obstructive sleep apnea. 4. Coronary artery disease. 5. Previous myocardial infarction. 6. Hyperlipidemia. 7. Anxiety disorder. 8. Peripheral neuropathy. Plan . PT INFORMED ME THAT SHE HAD PULMICORT AT HOME IT NOT USING IT WILL CONTINUE THE SAME FOR NOW 1. The patient will be placed on Flovent 220 two puffs twice daily once discharged. 2. Treat current condition with steroids and nebulized treatments. 3. Follow Cardiology input. 4. Outpatient polysomnogram. 5. DVT and GI prophylaxis. 6. No need for antibiotics. The patient instructed on the importance of weight reduction and exercise regimen program. LYNN BISHOP MD Jan 01, 2019 10:49
[2019-01-01 11:04] VITALS: BP 149/49
[2019-01-01 15:00] VITALS: BP 154/52
--- NOTE | 2019-01-01 16:04 | PDOC2 ---
CONSULT Date of Consult Date of Consult DATE: 01/01/19 TIME: 16:03 Reason for Consult Reason for Consult: Chest pain Referring Physician Referring Physician: Dr. Moser Identification/Chief Complaint Chief Complaint Chest pain and shortness of breath Source Source: Chart review, Patient History of Present Illness Reason for Visit: 63-year-old female with recurrent admissions for chest pain presented with 2 day history of shortness of breath associated with retrosternal chest tightness. She was diagnosed with acute respiratory failure probably from adult onset asthma exacerbation per pulmonary team. Cardiology has been consulted due to her known history of coronary artery bypass surgery and current symptoms of chest pain. The chest pain she described as right-sided and very atypical not related to exertion but she denied any orthopnea/PND, palpitations or syncope. Past Medical History Cardiovascular: CAD, CHF, HTN, AR, Hyperlipidemia, Other Pulmonary: Bronchitis, COPD CENTRAL NERVOUS SYSTEM: Periperal neuropathy GI: GERD Heme/Onc: No pertinent hx Hepatobiliary: Cholelithiasis Psych: No pertinent hx Musculoskeletal: Osteoarthritis, Weakness Rheumatologic: No pertinent hx Infectious disease: No pertinent hx Renal/: Chronic renal insuff Endocrine: Diabetes Past Surgical History Past Surgical History: Pacemaker, Appendectomy, Cholecystectomy, Total knee replacement, Hysterectomy Family History Family History: Heart Disease Social History Social History: Parent <1 pack per day ALCOHOL: none Drugs: None, Marijuana Lives: with Family Current Medications Current Medications Current Medications Albuterol Sulfate (Ventolin Neb Soln) 2.5 mg 1X ONCE NEB Last administered on 12/30/18at 17:42; Start 12/30/18 at 17:00; Stop 12/30/18 at 17:03; Status DC Methylprednisolone Sodium Succinate (SOLU-Medrol 125MG VIAL) 62.5 mg 1X ONCE IV Last administered on 12/30/18at 17:31; Start 12/30/18 at 17:00; Stop 12/30/18 at 17:03; Status DC Morphine Sulfate (Morphine Sulfate) 1 mg 1X ONCE IV Last administered on 12/30/18at 17:33; Start 12/30/18 at 17:00; Stop 12/30/18 at 17:03; Status DC Ondansetron HCl (Zofran) 4 mg 1X ONCE IV Last administered on 12/30/18at 17:29; Start 12/30/18 at 17:15; Stop 12/30/18 at 17:16; Status DC Morphine Sulfate (Morphine Sulfate) 1 mg 1X ONCE IV Last administered on 12/30/18 19:14; Start 12/30/18 at 18:45; Stop 12/30/18 at 18:46; Status DC Ondansetron HCl (Zofran) 4 mg PRN Q8HRS PRN IV NAUSEA/VOMITING; Start 12/30/18 at 19:00; Stop 12/31/18 at 18:59; Status DC Fentanyl Citrate (Fentanyl 2ml Vial) 50 mcg PRN Q1HR PRN IV PAIN; Start 12/30/18 at 19:00; Stop 12/31/18 at 18:59; Status DC Acetaminophen (Tylenol) 650 mg PRN Q4HRS PRN PO FEVER; Start 12/30/18 at 19:00; Stop 12/30/18 at 23:13; Status DC Albuterol/ Ipratropium (Duoneb) 3 ml RTQID NEB Last administered on 12/31/18 19:40; Start 12/30/18 at 20:00; Stop 12/31/18 at 19:59; Status DC Aspirin (Ecotrin) 81 mg DAILY PO Last administered on 01/01/19 08:32; Start 12/31/18 at 09:00 Atorvastatin Calcium (Lipitor) 20 mg HS PO Last administered on 12/31/18 20:13; Start 12/31/18 at 21:00 Calcium/Vitamin D (Oscal D 500mg/ 200uts) 1 tab DAILY PO Last administered on 01/01/19 08:33; Start 12/31/18 at 09:00 Clonazepam (KlonoPIN) 0.5 mg TID PO Last administered on 01/01/19 14:24; Start 12/31/18 at 01:00 Clopidogrel Bisulfate (Plavix) 75 mg DAILYWBKFT PO Last administered on 01/01/19 08:32; Start 12/31/18 at 08:00 Docusate Sodium (Colace) 100 mg BID PO Last administered on 01/01/19 08:32; Start 12/31/18 at 09:00 Famotidine (Pepcid) 20 mg BID PO Last administered on 01/01/19 08:32; Start 12/31/18 at 09:00 Fluoxetine HCl (PROzac) 20 mg DAILY PO Last administered on 01/01/19 08:32; Start 12/31/18 at 09:00 Furosemide (Lasix) 80 mg BID94 PO Last administered on 01/01/19 08:32; Start 12/31/18 at 09:00 Glimepiride (Amaryl) 2 mg DAILY PO Last administered on 01/01/19 08:33; Start 12/31/18 at 09:00 Metoprolol Tartrate (Lopressor) 25 mg BID PO Last administered on 01/01/19 08:33; Start 12/31/18 at 09:00 Nitroglycerin (Nitrostat) 0.4 mg PRN Q5MIN PRN SL CHEST PAIN; Start 12/30/18 at 23:00 Ondansetron HCl (Zofran Odt) 4 mg PRN Q6HRS PRN PO NAUSEA/VOMITING 1ST CHOICE; Start 12/30/18 at 23:00 Oxycodone/ Acetaminophen (Percocet 10/325) 2 tab PRN Q4HRS PRN PO SEVERE PAIN 7-10 Last administered on 01/01/19 14:24; Start 12/30/18 at 23:00 Zolpidem Tartrate (Ambien) 5 mg QHS PO Last administered on 12/31/18 20:18; Start 12/31/18 at 01:00 Acetaminophen (Tylenol) 650 mg PRN Q6HRS PRN PO MILD PAIN / TEMP; Start 12/30/18 at 23:15 Influenza Virus Vaccine Quadrival (Afluria Quad 2019-20 (3yr Up) Syringe) 0.5 ml ONCE ONCE VAX IM Last administered on 12/31/18 08:54; Start 12/31/18 at 09:00; Stop 12/31/18 at 09:01; Status DC Capsaicin (Zostrix) 60 tre PRN TID PRN TP PAIN Last administered on 01/01/19 05:59; Start 12/31/18 at 13:45 Albuterol Sulfate (Ventolin Neb Soln) 2.5 mg PRN Q6HRS PRN INH SHORTNESS OF BREATH; Start 12/31/18 at 13:45 Non-Formulary Medication (Albuterol Sulfate (Albuterol Sulfate Conc Neb Soln)) 5 mg PRN PRN NEB WHEEZING; Start 12/31/18 at 13:45; Status UNV Methylprednisolone Sodium Succinate (SOLU-Medrol 125MG VIAL) 60 mg Q8HRS IV Last administered on 01/01/19at 05:58; Start 12/31/18 at 14:00; Stop 01/01/19 at 11:18; Status DC Sodium Chloride (Normal Saline Flush) 3 ml QSHIFT PRN IV AFTER MEDS AND BLOOD DRAWS; Start 12/31/18 at 14:00 Ondansetron HCl (Zofran) 4 mg PRN Q4HRS PRN IV NAUSEA/VOMITING; Start 12/31/18 at 14:00 Acetaminophen (Tylenol) 650 mg PRN Q4HRS PRN PO TEMP OVER 100.4F OR MILD PAIN; Start 12/31/18 at 14:00 Al Hydroxide/Mg Hydroxide (Mylanta Plus Xs) 30 ml PRN DAILY PRN PO HEARTBURN / GAS; Start 12/31/18 at 14:00 Clonidine HCl (Catapres) 0.1 mg PRN Q6HRS PRN PO SBP>160 OR DBP>90; Start 12/31/18 at 14:00 Docusate Sodium (Colace) 100 mg PRN BID PRN PO CONSTIPATION; Start 12/31/18 at 14:00 Guaifenesin (Robitussin) 200 mg PRN Q4HRS PRN PO COUGH; Start 12/31/18 at 14:00 Enoxaparin Sodium (Lovenox 40mg Syringe) 40 mg Q24H SQ Last administered on 12/31/18at 20:20; Start 12/31/18 at 21:00 Insulin Human Lispro (HumaLOG) 15 units ONCE ONCE SQ Last administered on 12/31/18at 21:33; Start 12/31/18 at 21:30; Stop 12/31/18 at 21:31; Status DC Insulin Glargine (Lantus Syringe) 15 unit QHS SQ ; Start 12/31/18 at 21:30; Stop 01/01/19 at 11:19; Status DC Insulin Human Lispro (HumaLOG) 0-9 UNITS TIDWMEALS SQ Last administered on 01/01/19at 12:24; Start 01/01/19 at 08:00 Dextrose (Dextrose 50%-Water Syringe) 12.5 gm PRN Q15MIN PRN IV SEE COMMENTS; Start 12/31/18 at 21:00 Albuterol/ Ipratropium (Duoneb) 3 ml RTQID NEB Last administered on 01/01/19at 15:44; Start 01/01/19 at 08:00 Methylprednisolone Sodium Succinate (SOLU-Medrol 40MG VIAL) 40 mg DAILY07 IV ; Start 01/02/19 at 07:00 Insulin Glargine (Lantus Syringe) 18 unit QHS SQ ; Start 01/01/19 at 21:00 Active Scripts Active Percocet 10-325 Mg Tablet (Oxycodone/Acetaminophen) 1 Each Tablet 2 Tab PO PRN Q4-6HRS PRN MDD 1 [Percogesic] 1 Tab PO Q6-8HRS PRN Clopidogrel (Clopidogrel Bisulfate) 75 Mg Tablet 75 Mg PO DAILYWBKFT Ondansetron Odt (Ondansetron) 4 Mg Tab.rapdis 1 Tab PO PRN Q6-8HRS Proair Hfa Inhaler (Albuterol Sulfate) 8.5 Gm Hfa.aer.ad 1 Puff INH PRN Q6HRS PRN Amaryl (Glimepiride) 2 Mg Tablet 2 Mg PO DAILY 30 Days Reported Docusate Sodium 100 Mg Capsule 1 Cap PO BID Metoprolol Tartrate 25 Mg Tablet 25 Mg PO BID Capsaicin 60 Gm Cream..g. 60 Gm TP PRN TID apply to morgan feet Calcium 500 + Vit D 200 Caplet (Calcium Carbonate/Vitamin D3) 1 Each Tablet 1 Each PO DAILY Zolpidem Tartrate 5 Mg Tablet 5 Mg PO QHS Clonazepam (Clonazepam) 0.5 Mg Tablet 0.5 Mg PO TID Fluoxetine Hcl 20 Mg Capsule 1 Cap PO DAILY Famotidine 20 Mg Tablet 20 Mg PO BID Furosemide 80 Mg Tablet 80 Mg PO BID Albuterol Sulfate Conc Neb Soln (Albuterol Sulfate) 2.5 Mg/0.5 Ml Vial.neb 5 Mg NEB PRN PRN NITROGLYCERIN SubLingual (Nitroglycerin) 0.4 Mg Tab.subl 0.4 Mg SL PRN Q5MIN PRN Atorvastatin Calcium 20 Mg Tablet 20 Mg PO HS Aspir 81 (Aspirin) 81 Mg Tablet.dr 1 Tab PO DAILY Allergies Allergies: Coded Allergies: ibuprofen (Verified Adverse Reaction, Intermediate, Nausea and Vomiting, 12/02/17) ROS PSYCHOLOGICAL ROS: No: Hallucinations Eyes: No Loss of vision HEENT: No: Epistaxis Respiratory: YES: Shortness of breath; No: Hemoptysis Cardiovascular: yes Chest Pain Gastrointestinal: No Vomiting, No Diarrhea Genitourinary: No Hematuria Neurological: No Seizures Skin: No Rash Physical Exam General: Alert, Oriented X3 HEENT: Atraumatic, PERRLA Lungs: Clear to auscultation Heart: Regular rate Abdomen: Soft, No tenderness Psych/Mental Status: Mood NL Vitals VITALS Vital Signs Date Time Temp Pulse Resp B/P (MAP) Pulse Ox O2 Delivery O2 Flow Rate FiO2 01/01/19 15:44 96 Nasal Cannula 2.0 01/01/19 15:00 98.3 59 18 154/52 (86) 98.3 Labs Labs Laboratory Tests Test 12/30/18 16:35 12/30/18 16:56 12/30/18 17:55 12/30/18 17:59 Urine Opiates Screen Neg (NEG) Urine Methadone Screen Neg (NEG) Urine Barbiturates Neg (NEG) Urine Phencyclidine Screen Neg (NEG) Urine Amphetamine/Methamphetamine Neg (NEG) Urine Benzodiazepines Screen Neg (NEG) Urine Cocaine Screen Neg (NEG) Urine Cannabinoids Screen Pos (NEG) Urine Ethyl Alcohol Neg (NEG) White Blood Count 9.8 x10^3/uL (4.0-11.0) Red Blood Count 4.56 x10^6/uL (3.50-5.40) Hemoglobin 11.4 g/dL (12.0-15.5) Hematocrit 36.0 % (36.0-47.0) Mean Corpuscular Volume 79 fL (79-100) Mean Corpuscular Hemoglobin 25 pg (25-35) Mean Corpuscular Hemoglobin Concent 32 g/dL (31-37) Red Cell Distribution Width 17.5 % (11.5-14.5) Platelet Count 360 x10^3/uL (140-400) Neutrophils (%) (Auto) 84 % (31-73) Lymphocytes (%) (Auto) 9 % (24-48) Monocytes (%) (Auto) 6 % (0-9) Eosinophils (%) (Auto) 0 % (0-3) Basophils (%) (Auto) 1 % (0-3) Neutrophils # (Auto) 8.2 x10^3/uL (1.8-7.7) Lymphocytes # (Auto) 0.9 x10^3/uL (1.0-4.8) Monocytes # (Auto) 0.6 x10^3/uL (0.0-1.1) Eosinophils # (Auto) 0.0 x10^3/uL (0.0-0.7) Basophils # (Auto) 0.0 x10^3/uL (0.0-0.2) Sodium Level 140 mmol/L (136-145) Potassium Level 3.5 mmol/L (3.5-5.1) Chloride Level 98 mmol/L (98-107) Carbon Dioxide Level 34 mmol/L (21-32) Anion Gap 8 (6-14) Blood Urea Nitrogen 10 mg/dL (7-20) Creatinine 1.0 mg/dL (0.6-1.0) Estimated GFR (Cockcroft-Gault) 67.5 BUN/Creatinine Ratio 10 (6-20) Glucose Level 159 mg/dL (70-99) Calcium Level 10.8 mg/dL (8.5-10.1) Total Bilirubin 0.5 mg/dL (0.2-1.0) Aspartate Amino Transf (AST/SGOT) 21 U/L (15-37) Alanine Aminotransferase (ALT/SGPT) 16 U/L (14-59) Alkaline Phosphatase 102 U/L (46-116) Troponin I Quantitative < 0.017 ng/mL (0.000-0.055) [id number] Natriuretic Peptide 1680 pg/mL (0-124) Total Protein 9.3 g/dL (6.4-8.2) Albumin 3.7 g/dL (3.4-5.0) Albumin/Globulin Ratio 0.7 (1.0-1.7) O2 Saturation 94 % (92-99) Arterial Blood pH 7.45 (7.35-7.45) Arterial Blood pCO2 at Patient Temp 50 mmHg (35-46) Arterial Blood pO2 at Patient Temp 71 mmHg (65-108) Arterial Blood HCO3 34 mmol/L (21-28) Arterial Blood Base Excess 9 mmol/L (-3-3) Oxyhemoglobin 93.1 % Methemoglobin 0.2 % (0.0-1.9) Carbon Monoxide, Quantitative 0.7 % (0.0-1.9) FiO2 2 lpm nc Prothrombin Time 13.3 SEC (11.7-14.0) Prothromb Time International Ratio 1.0 (0.8-1.1) Test 12/30/18 20:45 12/30/18 21:35 12/31/18 07:37 12/31/18 11:38 Glucose (Fingerstick) 217 mg/dL (70-99) 197 mg/dL (70-99) 215 mg/dL (70-99) Troponin I Quantitative < 0.017 ng/mL (0.000-0.055) Test 12/31/18 17:02 12/31/18 20:24 01/01/19 08:15 01/01/19 11:27 Glucose (Fingerstick) 207 mg/dL (70-99) 363 mg/dL (70-99) 231 mg/dL (70-99) 301 mg/dL (70-99) Laboratory Tests Test 12/31/18 17:02 12/31/18 20:24 01/01/19 08:15 01/01/19 11:27 Glucose (Fingerstick) 207 mg/dL (70-99) 363 mg/dL (70-99) 231 mg/dL (70-99) 301 mg/dL (70-99) Images Images ECHOCARDIOGRAM ECHOCARDIOGRAM <Conclusion> Technically very difficult study. Endocardial definition not good despite using Optison echo contrast. Left ventricle systolic function appears normal. The Ejection Fraction is 50-55%. Trace mitral regurgitation. Trace tricuspid regurgitation. The PA pressure was estimated at 36 mmHg. There is no evidence of significant pericardial effusion. DATE: 11/06/18 1444 HEART CATH HEART CATH Conclusion 1. 40% stenosis involving the obtuse marginal branch of left circumflex artery without any other significant stenoses. The left internal mammary artery graft to the left anterior descending artery and the saphenous vein graft to the obtuse marginal branch were patent. Of note, patient seems to have had CABG for thrombus in left main coronary artery and left anterior descending artery in the past. No lesions were noted because the thrombus resolved. 2. Akinetic distal anterior wall and the entire apical wall with ejection fraction estimated at 40%. Recommendations Medical Therapy DATE: 05/18/18 1225 Assessment/Plan Assessment/Plan 1. Acute hypercapnic hypoxic respiratory failure secondary to adult onset asthma exacerbation. Continue current treatment per pulmonary team. 2. Chest pain with atypical features. Myocardial infarction has been ruled out. Patient has known history of coronary artery disease s/p coronary artery bypass surgery. Recent cardiac catheterization and 2-D echo results noted above. No further cardiac workup is indicated at this time. 3. Hypertension: Controlled 4. SSS s/p PPM implantation. Recent device check showed normal function. 5. Hyperlipidemia: Continue statin therapy 6. Diabetes mellitus type 2: Treat per IM Thank you for your consultation. MISBAH HUFFMAN MD Jan 01, 2019 16:04
[2019-01-01 19:34] VITALS: BP 148/60
[2019-01-01] MEDS: ATORVASTATIN CALCIUM 20 MG TABLET PO SCH (20:36)
[2019-01-01] MEDS: ENOXAPARIN 40 MG/0.4 ML SYRINGE. SQ SCH (20:36)
[2019-01-01] MEDS: ZOLPIDEM 5 MG TABLET. PO SCH (20:37)
[2019-01-01] MEDS ORDERED: INSULIN GLARGINE SYRINGE. SQ SCH (21:00)
[2019-01-01 23:28] VITALS: BP 129/38
[2019-01-02 03:20] VITALS: BP 133/54
[2019-01-02] MEDS: oxyCODONE/APAP 10/325 1 TAB TABLET PO PRN ×5 (04:22→21:35)
[2019-01-02] MEDS ORDERED: methylPREDNISolone SOD SUCC PF 40 MG/ML VIAL. IV SCH (07:00)
[2019-01-02 07:47] VITALS: BP 143/71
[2019-01-02] MEDS: INSULIN LISPRO 300 UNITS/3 ML VIAL. SQ SCH ×3 (08:00→17:06)
[2019-01-02] MEDS: IPRATRPIUM/ALBUTEROL 0.5/2.5MG 3 ML NEBU. NEB SCH ×4 (08:02→19:25)
[2019-01-02] MEDS: DOCUSATE SODIUM 100 MG CAPSULE. PO SCH ×2 (08:25→21:28)
[2019-01-02] MEDS: CLOPIDOGREL BISULFATE 75 MG TABLET PO SCH (08:25)
[2019-01-02] MEDS: FAMOTIDINE 20 MG TABLET. PO SCH ×2 (08:25→21:28)
[2019-01-02] MEDS: clonazePAM 0.5 MG TABLET PO SCH ×3 (08:25→21:28)
[2019-01-02] MEDS: FUROSEMIDE 80 MG TABLET. PO SCH ×2 (08:25→15:50)
[2019-01-02] MEDS: GLIMEPIRIDE 2 MG TABLET. PO SCH (08:26)
[2019-01-02] MEDS: FLUoxetine HCL 20 MG CAPSULE PO SCH (08:26)
[2019-01-02] MEDS: METOPROLOL TART IMMED RELEASE 25 MG TABLET. PO SCH ×2 (08:26→21:28)
[2019-01-02] MEDS: ASPIRIN ENTERIC COATED 81 MG TABLET.DR. PO SCH (08:26)
[2019-01-02] MEDS: CALCIUM CARB/VIT D3 500/200 TABLET. PO SCH (08:26)
--- NOTE | 2019-01-02 09:05 | PDOC ---
PROGRESS NOTES History of Present Illness History of Present Illness VTE Prophylaxis Ordered VTE Prophylaxis Devices: Yes VTE Pharmacological Prophylaxi: Yes Assessment/Plan Assessment/Plan IMPRESSION 1. acute exac of hypercapnic, hypoxic resp failure 2. chest discomfort atypical 3. CAD 4. recent cath 40% stenosis involving the obtuse marginal branch of left circumflex artery without any other significant stenoses. The left internal mammary artery graft to the left anterior descending artery and the saphenous vein graft to the obtuse marginal branch were patent. Of note, patient seems to have had CABG for thrombus in left main coronary artery and left anterior descending artery in the past. No lesions were noted because the thrombus resolved. Akinetic distal anterior wall and the entire apical wall with ejection fraction estimated at 40%. 5. on cxr 12/30 Cardiomegaly without acute pulmonary process. 6, thc abuse 7. Extreme morbid obesity 8. hx noncompliance 9. hyperlipidemia 10. anxiety/ depression 11. small shallow fat-containing left ventral abdominal hernia, no internal bowel. No significant localized inflammatory type change is seen about the bowel on recent CT ABD 12. insertion of a dual chamber pacer 2016 13. uncontrolled glucose plan o2 support cardiology consult tele duonebs qid IV rapid taper steroids admit dvt prophylaxis pulm consult CPAP support hs NEEDED home meds inc lantus to 22 units sq q hs 26 min pt exam, chart review, > 50% of time spent with exam, chart review, pt care coordination Vitals Vitals Vital Signs Date Time Temp Pulse Resp B/P (MAP) Pulse Ox O2 Delivery O2 Flow Rate FiO2 01/02/19 08:26 60 143/71 01/02/19 08:25 Room Air 2.0 01/02/19 08:02 99 01/02/19 07:47 97.8 18 97.8 Physical Exam General: Alert, Oriented X3 Heart: Regular rate Lungs: Clear Abdomen: Soft, No tenderness Extremities: No cyanosis, No edema Labs LABS Laboratory Tests Test 01/01/19 11:27 01/01/19 16:46 01/01/19 20:21 01/02/19 07:25 Glucose (Fingerstick) 301 mg/dL (70-99) 185 mg/dL (70-99) 202 mg/dL (70-99) 131 mg/dL (70-99) Comment Review of Relevant I have reviewed the following items nolan (where applicable) has been applied. Labs Laboratory Tests Test 12/31/18 11:38 12/31/18 17:02 12/31/18 20:24 01/01/19 08:15 Glucose (Fingerstick) 215 mg/dL (70-99) 207 mg/dL (70-99) 363 mg/dL (70-99) 231 mg/dL (70-99) Test 01/01/19 11:27 01/01/19 16:46 01/01/19 20:21 01/02/19 07:25 Glucose (Fingerstick) 301 mg/dL (70-99) 185 mg/dL (70-99) 202 mg/dL (70-99) 131 mg/dL (70-99) Laboratory Tests Test 01/01/19 11:27 01/01/19 16:46 01/01/19 20:21 01/02/19 07:25 Glucose (Fingerstick) 301 mg/dL (70-99) 185 mg/dL (70-99) 202 mg/dL (70-99) 131 mg/dL (70-99) Medications Current Medications Albuterol Sulfate (Ventolin Neb Soln) 2.5 mg 1X ONCE NEB Last administered on 12/30/18at 17:42; Start 12/30/18 at 17:00; Stop 12/30/18 at 17:03; Status DC Methylprednisolone Sodium Succinate (SOLU-Medrol 125MG VIAL) 62.5 mg 1X ONCE IV Last administered on 12/30/18at 17:31; Start 12/30/18 at 17:00; Stop 12/30/18 at 17:03; Status DC Morphine Sulfate (Morphine Sulfate) 1 mg 1X ONCE IV Last administered on 12/30/18at 17:33; Start 12/30/18 at 17:00; Stop 12/30/18 at 17:03; Status DC Ondansetron HCl (Zofran) 4 mg 1X ONCE IV Last administered on 12/30/18at 17:29; Start 12/30/18 at 17:15; Stop 12/30/18 at 17:16; Status DC Morphine Sulfate (Morphine Sulfate) 1 mg 1X ONCE IV Last administered on 12/30/18at 19:14; Start 12/30/18 at 18:45; Stop 12/30/18 at 18:46; Status DC Ondansetron HCl (Zofran) 4 mg PRN Q8HRS PRN IV NAUSEA/VOMITING; Start 12/30/18 at 19:00; Stop 12/31/18 at 18:59; Status DC Fentanyl Citrate (Fentanyl 2ml Vial) 50 mcg PRN Q1HR PRN IV PAIN; Start at 19:00; Stop 12/31/18 at 18:59; Status DC Acetaminophen (Tylenol) 650 mg PRN Q4HRS PRN PO FEVER; Start 12/30/18 at 19:00; Stop 12/30/18 at 23:13; Status DC Albuterol/ Ipratropium (Duoneb) 3 ml RTQID NEB Last administered on 12/31/18 19:40; Start 12/30/18 at 20:00; Stop 12/31/18 at 19:59; Status DC Aspirin (Ecotrin) 81 mg DAILY PO Last administered on 01/02/19 08:26; Start 12/31/18 at 09:00 Atorvastatin Calcium (Lipitor) 20 mg HS PO Last administered on 01/01/19 20:36; Start 12/31/18 at 21:00 Calcium/Vitamin D (Oscal D 500mg/ 200uts) 1 tab DAILY PO Last administered on 01/02/19 08:26; Start 12/31/18 at 09:00 Clonazepam (KlonoPIN) 0.5 mg TID PO Last administered on 01/02/19 08:25; Start 12/31/18 at 01:00 Clopidogrel Bisulfate (Plavix) 75 mg DAILYWBKFT PO Last administered on 01/02/19 08:25; Start 12/31/18 at 08:00 Docusate Sodium (Colace) 100 mg BID PO Last administered on 01/02/19 08:25; Start 12/31/18 at 09:00 Famotidine (Pepcid) 20 mg BID PO Last administered on 01/02/19 08:25; Start 12/31/18 at 09:00 Fluoxetine HCl (PROzac) 20 mg DAILY PO Last administered on 01/02/19 08:26; Start 12/31/18 at 09:00 Furosemide (Lasix) 80 mg BID94 PO Last administered on 01/02/19 08:25; Start 12/31/18 at 09:00 Glimepiride (Amaryl) 2 mg DAILY PO Last administered on 01/02/19 08:26; Start 12/31/18 at 09:00 Metoprolol Tartrate (Lopressor) 25 mg BID PO Last administered on 01/02/19 08:26; Start 12/31/18 at 09:00 Nitroglycerin (Nitrostat) 0.4 mg PRN Q5MIN PRN SL CHEST PAIN; Start 12/30/18 at 23:00 Ondansetron HCl (Zofran Odt) 4 mg PRN Q6HRS PRN PO NAUSEA/VOMITING 1ST CHOICE; Start 12/30/18 at 23:00 Oxycodone/ Acetaminophen (Percocet 10/325) 2 tab PRN Q4HRS PRN PO SEVERE PAIN 7-10 Last administered on 01/02/19 08:25; Start 12/30/18 at 23:00 Zolpidem Tartrate (Ambien) 5 mg QHS PO Last administered on 01/01/19at 20:37; Start 12/31/18 at 01:00 Acetaminophen (Tylenol) 650 mg PRN Q6HRS PRN PO MILD PAIN / TEMP; Start 12/30/18 at 23:15; Status Cancel Influenza Virus Vaccine Quadrival (Afluria Quad 2019-20 (3yr Up) Syringe) 0.5 ml ONCE ONCE VAX IM Last administered on 12/31/18 08:54; Start 12/31/18 at 09:00; Stop 12/31/18 at 09:01; Status DC Capsaicin (Zostrix) 60 tre PRN TID PRN TP PAIN Last administered on 01/01/19 05:59; Start 12/31/18 at 13:45 Albuterol Sulfate (Ventolin Neb Soln) 2.5 mg PRN Q6HRS PRN INH SHORTNESS OF BREATH; Start 12/31/18 at 13:45 Non-Formulary Medication (Albuterol Sulfate (Albuterol Sulfate Conc Neb Soln)) 5 mg PRN PRN NEB WHEEZING; Start 12/31/18 at 13:45; Status UNV Methylprednisolone Sodium Succinate (SOLU-Medrol 125MG VIAL) 60 mg Q8HRS IV Last administered on 01/01/19at 05:58; Start 12/31/18 at 14:00; Stop 01/01/19 at 11:18; Status DC Sodium Chloride (Normal Saline Flush) 3 ml QSHIFT PRN IV AFTER MEDS AND BLOOD DRAWS; Start 12/31/18 at 14:00 Ondansetron HCl (Zofran) 4 mg PRN Q4HRS PRN IV NAUSEA/VOMITING; Start 12/31/18 at 14:00 Acetaminophen (Tylenol) 650 mg PRN Q4HRS PRN PO TEMP OVER 100.4F OR MILD PAIN; Start 12/31/18 at 14:00 Al Hydroxide/Mg Hydroxide (Mylanta Plus Xs) 30 ml PRN DAILY PRN PO HEARTBURN / GAS; Start 12/31/18 at 14:00 Clonidine HCl (Catapres) 0.1 mg PRN Q6HRS PRN PO SBP>160 OR DBP>90; Start 12/31/18 at 14:00 Docusate Sodium (Colace) 100 mg PRN BID PRN PO CONSTIPATION; Start 12/31/18 at 14:00 Guaifenesin (Robitussin) 200 mg PRN Q4HRS PRN PO COUGH; Start 12/31/18 at 14:00 Enoxaparin Sodium (Lovenox 40mg Syringe) 40 mg Q24H SQ Last administered on 01/01/19at 20:36; Start 12/31/18 at 21:00 Insulin Human Lispro (HumaLOG) 15 units ONCE ONCE SQ Last administered on 12/31/18at 21:33; Start 12/31/18 at 21:30; Stop 12/31/18 at 21:31; Status DC Insulin Glargine (Lantus Syringe) 15 unit QHS SQ ; Start 12/31/18 at 21:30; Stop 01/01/19 at 11:19; Status DC Insulin Human Lispro (HumaLOG) 0-9 UNITS TIDWMEALS SQ Last administered on 01/01/19at 17:55; Start 01/01/19 at 08:00 Dextrose (Dextrose 50%-Water Syringe) 12.5 gm PRN Q15MIN PRN IV SEE COMMENTS; Start 12/31/18 at 21:00 Albuterol/ Ipratropium (Duoneb) 3 ml RTQID NEB Last administered on 01/02/19at 08:02; Start 01/01/19 at 08:00 Methylprednisolone Sodium Succinate (SOLU-Medrol 40MG VIAL) 40 mg DAILY07 IV Last administered on 01/02/19at 06:02; Start 01/02/19 at 07:00 Insulin Glargine (Lantus Syringe) 18 unit QHS SQ Last administered on 01/01/19at 20:41; Start 01/01/19 at 21:00 Active Scripts Active Percocet 10-325 Mg Tablet (Oxycodone/Acetaminophen) 1 Each Tablet 2 Tab PO PRN Q4-6HRS PRN MDD 1 [Percogesic] 1 Tab PO Q6-8HRS PRN Clopidogrel (Clopidogrel Bisulfate) 75 Mg Tablet 75 Mg PO DAILYWBKFT Ondansetron Odt (Ondansetron) 4 Mg Tab.rapdis 1 Tab PO PRN Q6-8HRS Proair Hfa Inhaler (Albuterol Sulfate) 8.5 Gm Hfa.aer.ad 1 Puff INH PRN Q6HRS PRN Amaryl (Glimepiride) 2 Mg Tablet 2 Mg PO DAILY 30 Days Reported Docusate Sodium 100 Mg Capsule 1 Cap PO BID Metoprolol Tartrate 25 Mg Tablet 25 Mg PO BID Capsaicin 60 Gm Cream..g. 60 Gm TP PRN TID apply to morgan feet Calcium 500 + Vit D 200 Caplet (Calcium Carbonate/Vitamin D3) 1 Each Tablet 1 Each PO DAILY Zolpidem Tartrate 5 Mg Tablet 5 Mg PO QHS Clonazepam (Clonazepam) 0.5 Mg Tablet 0.5 Mg PO TID Fluoxetine Hcl 20 Mg Capsule 1 Cap PO DAILY Famotidine 20 Mg Tablet 20 Mg PO BID Furosemide 80 Mg Tablet 80 Mg PO BID Albuterol Sulfate Conc Neb Soln (Albuterol Sulfate) 2.5 Mg/0.5 Ml Vial.neb 5 Mg NEB PRN PRN NITROGLYCERIN SubLingual (Nitroglycerin) 0.4 Mg Tab.subl 0.4 Mg SL PRN Q5MIN PRN Atorvastatin Calcium 20 Mg Tablet 20 Mg PO HS Aspir 81 (Aspirin) 81 Mg Tablet.dr 1 Tab PO DAILY Vitals/I & O Vital Sign - Last 24 Hours 01/01/19 01/01/19 01/01/19 01/01/19 11:04 12:09 15:00 15:44 Temp 97.6 98.3 97.6 98.3 Pulse 56 59 Resp 18 18 B/P (MAP) 149/49 (82) 154/52 (86) Pulse Ox 99 97 97 96 O2 Delivery Nasal Cannula Nasal Cannula Nasal Cannula Nasal Cannula O2 Flow Rate 2.0 2.0 2.0 2.0 01/01/19 01/01/19 01/01/19 01/01/19 19:34 19:45 20:00 20:37 Temp 97.8 97.8 Pulse 64 64 Resp 18 B/P (MAP) 148/60 (89) 148/60 Pulse Ox 91 O2 Delivery Nasal Cannula Nasal Cannula Nasal Cannula O2 Flow Rate 2.0 2.0 01/01/19 01/01/19 01/01/19 01/02/19 20:48 23:22 23:28 00:22 Temp 98.3 98.3 Pulse 59 Resp 16 B/P (MAP) 129/38 (68) Pulse Ox 93 93 93 O2 Delivery Nasal Cannula Nasal Cannula Nasal Cannula Nasal Cannula O2 Flow Rate 2.0 2.0 2.0 2.0 01/02/19 01/02/19 01/02/19 01/02/19 03:20 04:22 05:22 07:35 Temp 97.8 97.8 Pulse 60 Resp 20 B/P (MAP) 133/54 (80) Pulse Ox 98 O2 Delivery Nasal Cannula Nasal Cannula Nasal Cannula Nasal Cannula O2 Flow Rate 2.0 2.0 2.0 01/02/19 01/02/19 01/02/19 01/02/19 07:47 08:02 08:25 08:26 Temp 97.8 97.8 Pulse 60 60 Resp 18 B/P (MAP) 143/71 (95) 143/71 Pulse Ox 96 99 O2 Delivery Nasal Cannula Nasal Cannula Room Air O2 Flow Rate 2.0 2.0 2.0 Intake and Output 01/01/19 01/01/19 01/02/19 15:00 23:00 07:00 Intake Total 1000 ml 630 ml Output Total 0 ml Balance 1000 ml 630 ml JHON ZAPIEN MD Jan 02, 2019 09:05
--- NOTE | 2019-01-02 10:05 | PDOC ---
PULMONARY PROGRESS NOTES Subjective PT. report SOA with exertion only, currently on 2 liters N/C. Denies increase in cough, resting comfortably denies CP today Vitals Vital Signs Date Time Temp Pulse Resp B/P (MAP) Pulse Ox O2 Delivery O2 Flow Rate FiO2 01/02/19 08:26 60 143/71 01/02/19 08:25 Room Air 2.0 01/02/19 08:02 99 01/02/19 07:47 97.8 18 97.8 ROS: No Nausea, No Chest Pain, No Abdominal Pain, No Increase Cough General: Oriented X4, No acute distress Lungs: Clear Cardiovascular: S1, S2 Abdomen: Soft, Other Neuro Exam: Alert Extremities: No Edema, Other Skin: Warm Labs Laboratory Tests Test 12/31/18 11:38 12/31/18 17:02 12/31/18 20:24 01/01/19 08:15 Glucose (Fingerstick) 215 mg/dL (70-99) 207 mg/dL (70-99) 363 mg/dL (70-99) 231 mg/dL (70-99) Test 01/01/19 11:27 01/01/19 16:46 01/01/19 20:21 01/02/19 07:25 Glucose (Fingerstick) 301 mg/dL (70-99) 185 mg/dL (70-99) 202 mg/dL (70-99) 131 mg/dL (70-99) Laboratory Tests Test 01/01/19 11:27 01/01/19 16:46 01/01/19 20:21 01/02/19 07:25 Glucose (Fingerstick) 301 mg/dL (70-99) 185 mg/dL (70-99) 202 mg/dL (70-99) 131 mg/dL (70-99) Medications Active Scripts Medications Dose Route/Sig Max Daily Dose Days Date Category Dose Instructions Percocet 10-325 Mg Tablet (Oxycodone/Acetaminophen) 1 Each Tablet 2 Tab PO PRN Q4-6HRS PRN MDD 1 12/16/18 Rx [Percogesic] 1 Tab PO Q6-8HRS PRN 12/10/18 Rx Docusate Sodium 100 Mg Capsule 1 Cap PO BID 12/05/18 Reported Clopidogrel (Clopidogrel Bisulfate) 75 Mg Tablet 75 Mg PO DAILYWBKFT 11/07/18 Rx Metoprolol Tartrate 25 Mg Tablet 25 Mg PO BID 08/30/18 Reported Ondansetron Odt (Ondansetron) 4 Mg Tab.rapdis 1 Tab PO PRN Q6-8HRS 08/13/18 Rx Capsaicin 60 Gm Cream..g. 60 Gm TP PRN TID 07/14/18 Reported apply to morgan feet Proair Hfa Inhaler (Albuterol Sulfate) 8.5 Gm Hfa.aer.ad 1 Puff INH PRN Q6HRS PRN 06/21/18 Rx Calcium 500 + Vit D 200 Caplet (Calcium Carbonate/Vitamin D3) 1 Each Tablet 1 Each PO DAILY 05/16/18 Reported Zolpidem Tartrate 5 Mg Tablet 5 Mg PO QHS 05/16/18 Reported Clonazepam (Clonazepam) 0.5 Mg Tablet 0.5 Mg PO TID 05/16/18 Reported Fluoxetine Hcl 20 Mg Capsule 1 Cap PO DAILY 05/16/18 Reported Famotidine 20 Mg Tablet 20 Mg PO BID 05/16/18 Reported Furosemide 80 Mg Tablet 80 Mg PO BID 10/09/17 Reported Albuterol Sulfate Conc Neb Soln (Albuterol Sulfate) 2.5 Mg/0.5 Ml Vial.neb 5 Mg NEB PRN PRN 10/07/17 Reported Amaryl (Glimepiride) 2 Mg Tablet 2 Mg PO DAILY 30 07/04/17 Rx NITROGLYCERIN SubLingual (Nitroglycerin) 0.4 Mg Tab.subl 0.4 Mg SL PRN Q5MIN PRN 11/01/16 Reported Atorvastatin Calcium 20 Mg Tablet 20 Mg PO HS 10/28/16 Reported Aspir 81 (Aspirin) 81 Mg Tablet.dr 1 Tab PO DAILY 10/28/16 Reported Impression . 1. Adult-onset asthma. 2. Progressive dyspnea is secondary to above along with deconditioning, morbid obesity, and secondary pulmonary hypertension. 3. Obstructive sleep apnea. 4. Coronary artery disease. 5. Previous myocardial infarction. 6. Hyperlipidemia. 7. Anxiety disorder. 8. Peripheral neuropathy. Plan . 1. The patient will be placed on Flovent 220 two puffs twice daily once discharged. 2. Treat current condition with steroids and nebulized treatments 3. follow tre. cardiology recs. 4. Outpatient polysomnogram. 5. DVT and GI prophylaxis:lovenox/pepcid hopefully d/c in am LYNN BISHOP MD Jan 02, 2019 10:05
[2019-01-02 11:00] VITALS: BP 131/38
[2019-01-02 15:00] VITALS: BP 136/42
[2019-01-02] MEDS ORDERED: CAPSAICIN 0.025% TOPICAL CREAM 60GM TUBE. TP PRN (15:45)
[2019-01-02 19:00] VITALS: BP 138/51
[2019-01-02] MEDS ORDERED: INSULIN GLARGINE SYRINGE. SQ SCH (21:00)
[2019-01-02] MEDS: ZOLPIDEM 5 MG TABLET. PO SCH (21:28)
[2019-01-02] MEDS: ATORVASTATIN CALCIUM 20 MG TABLET PO SCH (21:28)
[2019-01-02] MEDS: ENOXAPARIN 40 MG/0.4 ML SYRINGE. SQ SCH (21:33)
[2019-01-02 23:00] VITALS: BP 139/44
[2019-01-03] MEDS: oxyCODONE/APAP 10/325 1 TAB TABLET PO PRN ×4 (02:15→16:18)
[2019-01-03 03:00] VITALS: BP 132/47
[2019-01-03 07:00] VITALS: BP 140/53
[2019-01-03] MEDS: IPRATRPIUM/ALBUTEROL 0.5/2.5MG 3 ML NEBU. NEB SCH ×3 (07:50→15:56)
[2019-01-03] MEDS: INSULIN LISPRO 300 UNITS/3 ML VIAL. SQ SCH ×3 (08:00→17:00)
[2019-01-03] MEDS ORDERED: OXYC1TAB22 PO (08:07)
--- NOTE | 2019-01-03 08:08 | SNU/HH DC ---
DISCHARGE WITH HOME HEALTH DISCHARGE INFORMATION: Discharge Date: Jan 03, 2019 Condition on Discharge: Stable CODE STATUS: Code Status: Full HOME HEALTH: Face to Face: I certify this patient is under my care and that I, or a nurse practitioner or [employer] assistant working with me, had a face to face encounter that meets the physician face to face encounter requirements with this patient on []. Medical Complications: CHF RN For Eval/Treatment: Yes Physical Therapy For: Evalulation/Treatment Occupational Therapy For: Evaluation/Treatment Speech Language Pathology For: Evaluation/Treatment Home Health Aide For: Self-care DISTRICT CLAIMS MANAGER For: Community Resources Pt Meets Homebound Status: Extreme weakness w/ amb. POST DISCHARGE ORDERS: Activity Instructions for Disc: No restrictions, Activity as tolerated Weight Bearing Status after Di: No restrictions, As tolerated DIET AFTER DISCHARGE: Cardiac Wound/Incision Care: No wound care needed CHECKS AFTER DISCHARGE: Checks after discharge: Check blood press - daily, Check blood sugar, ac/hs, Check your Temp as needed FOLLOW-UP: PCP to follow Home Health: pcp q monthly TREATMENT/EQUIPMENT ORDERS: Adaptive Equipment Issued: None, Front wheeled walker Discharge Respiratory Equipmen: Oxygen CERTIFICATION STATEMENT: Certification Statement: Certification Statement: Based on the above finding, I certify that this patient is confined to the home and needs intermittent jail care, physical therapy and/or speech therapy, or continues to need occupational therapy.~ This patient is under my care, and I have initiated the establishment of the plan of care.~ This patient will be followed by myself or a community physician who will periodically review the plan of care. Home Meds Active Scripts Oxycodone/Apap 10-325 (PERCOCET 10-325 MG TABLET ) 1 Each Tablet, 2 TAB PO PRN Q4-6HRS PRN for PAIN MDD 1, #20 TAB 0 Refills Prov:CATHIE KNIGHT MD 01/03/19 [Percogesic] No Conflict Check, 1 TAB PO Q6-8HRS PRN for PAIN, #14 Prov:JO-ANN BLOUNT MD 12/10/18 Clopidogrel Bisulfate (CLOPIDOGREL) 75 Mg Tablet, 75 MG PO DAILYWBKFT for heart protection, #30 TAB Prov:LÓPEZ BARRIOS MD 11/07/18 Ondansetron (ONDANSETRON ODT) 4 Mg Tab.rapdis, 1 TAB PO PRN Q6-8HRS, #16 TAB Prov:DESMOND CARSON REINFORCED IRONWORKER 08/13/18 Albuterol Sulfate (PROAIR HFA INHALER) 8.5 Gm Hfa.aer.ad, 1 PUFF INH PRN Q6HRS PRN for SHORTNESS OF BREATH, #1 INHALER 0 Refills Prov:MILLER ORTIZ MD 06/21/18 Glimepiride (AMARYL) 2 Mg Tablet, 2 MG PO DAILY for 30 Days, #30 TAB Prov:RADHA PIERRE MD 07/04/17 Reported Medications Docusate Sodium (DOCUSATE SODIUM) 100 Mg Capsule, 1 CAP PO BID for constipation, #14 CAP 12/05/18 Metoprolol Tartrate (METOPROLOL TARTRATE) 25 Mg Tablet, 25 MG PO BID for FOR HYPERTENSION, #60 TAB 0 Refills 08/30/18 Capsaicin (CAPSAICIN) 60 Gm Cream..g., 60 GM TP PRN TID for , EACH apply to morgan feet 07/14/18 Calcium Carbonate/Vitamin D3 (CALCIUM 500 + VIT D 200 CAPLET) 1 Each Tablet, 1 EACH PO DAILY for supplement, TAB 05/16/18 Zolpidem Tartrate (ZOLPIDEM TARTRATE) 5 Mg Tablet, 5 MG PO QHS for insomnia, TAB 0 Refills 05/16/18 Clonazepam (CLONAZEPAM ) 0.5 Mg Tablet, 0.5 MG PO TID for anti-anxiety, TAB 05/16/18 Fluoxetine Hcl (FLUOXETINE HCL) 20 Mg Capsule, 1 CAP PO DAILY for anti- depressent, #90 CAP 1 Refill 05/16/18 Famotidine (FAMOTIDINE) 20 Mg Tablet, 20 MG PO BID for stomach acid, TAB 05/16/18 Furosemide (FUROSEMIDE) 80 Mg Tablet, 80 MG PO BID for heart, TAB 10/09/17 Albuterol Sulfate (ALBUTEROL SULFATE CONC NEB SOLN) 2.5 Mg/0.5 Ml Vial.neb, 5 MG NEB PRN PRN for WHEEZING, EACH 0 Refills 10/07/17 Nitroglycerin (NITROGLYCERIN SubLingual) 0.4 Mg Tab.subl, 0.4 MG SL PRN Q5MIN PRN for CHEST PAIN, BOTTLE 11/01/16 Atorvastatin Calcium (ATORVASTATIN CALCIUM) 20 Mg Tablet, 20 MG PO HS for FOR CHOLESTEROL, #30 TAB 0 Refills 10/28/16 Aspirin (ASPIR 81) 81 Mg Tablet., 1 TAB PO DAILY, #30 TAB 5 Refills 10/28/16 CATHIE KNIGHT MD Jan 03, 2019 08:08
[2019-01-03] MEDS: CLOPIDOGREL BISULFATE 75 MG TABLET PO SCH (08:15)
[2019-01-03] MEDS: clonazePAM 0.5 MG TABLET PO SCH ×2 (08:15→16:16)
[2019-01-03] MEDS: ASPIRIN ENTERIC COATED 81 MG TABLET.DR. PO SCH (08:15)
[2019-01-03] MEDS: DOCUSATE SODIUM 100 MG CAPSULE. PO SCH (08:15)
[2019-01-03] MEDS: FAMOTIDINE 20 MG TABLET. PO SCH (08:15)
[2019-01-03] MEDS: FLUoxetine HCL 20 MG CAPSULE PO SCH (08:16)
[2019-01-03] MEDS: GLIMEPIRIDE 2 MG TABLET. PO SCH (08:16)
[2019-01-03] MEDS: FUROSEMIDE 80 MG TABLET. PO SCH ×2 (08:16→16:16)
[2019-01-03] MEDS: CALCIUM CARB/VIT D3 500/200 TABLET. PO SCH (08:16)
[2019-01-03] MEDS: METOPROLOL TART IMMED RELEASE 25 MG TABLET. PO SCH (08:22)
--- NOTE | 2019-01-03 08:59 | PDOC3 ---
Discharge Summary Visit Information Date of Admission: Dec 31, 2018 Date of Discharge: Jan 03, 2019 Admitting Diagnosis Comment: 1. Adult-onset asthma. 2. Progressive dyspnea is secondary to above along with deconditioning, morbid obesity, and secondary pulmonary hypertension. 3. Obstructive sleep apnea. 4. Coronary artery disease. 5. Previous myocardial infarction. 6. Hyperlipidemia. 7. Anxiety disorder. 8. Peripheral neuropathy. 9. DIastolic CHF on lasix 80 BID Brief Hospital Course Allergies Allergies Coded Allergies Type Severity Reaction Last Updated Verified ibuprofen Adverse Reaction Intermediate Nausea and Vomiting 12/02/17 Yes Vital Signs Vital Signs Date Time Temp Pulse Resp B/P (MAP) Pulse Ox O2 Delivery O2 Flow Rate FiO2 01/03/19 08:22 58 140/53 01/03/19 08:17 96 Nasal Cannula 2.0 01/03/19 03:15 18 01/03/19 03:00 98.1 98.1 Lab Results Laboratory Tests Test 01/01/19 11:27 01/01/19 16:46 01/01/19 20:21 01/02/19 07:25 Glucose (Fingerstick) 301 mg/dL (70-99) 185 mg/dL (70-99) 202 mg/dL (70-99) 131 mg/dL (70-99) Test 01/02/19 10:51 01/02/19 16:34 01/02/19 20:20 01/03/19 08:01 Glucose (Fingerstick) 257 mg/dL (70-99) 213 mg/dL (70-99) 200 mg/dL (70-99) 91 mg/dL (70-99) Laboratory Tests Test 01/02/19 10:51 01/02/19 16:34 01/02/19 20:20 01/03/19 08:01 Glucose (Fingerstick) 257 mg/dL (70-99) 213 mg/dL (70-99) 200 mg/dL (70-99) 91 mg/dL (70-99) Brief Hospital Course Ms. Laguna is a 63 old obese AA female who is a freq flier both bec of the nature of her dse (morbidly obese with VIOLETTA and COPD sometimes on BIpap), has current HH and also bec of diastolic HF claims compliance to lasix 80 BID , comes in bec of CP and soa exertional, Co managed with the usual consults, pulmo and erica, HOme today witH HH with lasix 80 BID dose (claims still hs RX at home) and floventINC dose to 220mcg BID . I have written all her rx per her request with special mention of her narcs. Dc > 30 mins, educn counselling Proc; None COnsults: pulmo, cards Discharge Information Condition at Discharge: Improved, Stable Follow Up: Weeks (pcp as scheduled or in 4 weeks) Disposition/Orders: D/C to Home w/ HH Scheduled Aspirin (Aspir 81) 81 Mg Tablet.dr, 1 TAB PO DAILY, #30 Ref 5 (Reported) Entered as Reported by: FIFI WALSH on 10/28/16 1058 Last Action: Continued on 12/30/182251 by LILIANA BROWN Atorvastatin Calcium (Atorvastatin Calcium) 20 Mg Tablet, 20 MG PO HS for FOR CHOLESTEROL, #30 Ref 0 (Reported) Entered as Reported by: IFFI WALSH on 10/28/16 1108 Last Action: Continued on 12/30/182251 by LILIANA BROWN Calcium Carbonate/Vitamin D3 (Calcium 500 + Vit D 200 Caplet) 1 Each Tablet, 1 EACH PO DAILY for supplement, (Reported) Entered as Reported by: KENNEY YANG on 05/16/182321 Last Action: Continued on 12/30/182251 by LILIANA BROWN Capsaicin (Capsaicin) 60 Gm Cream..g., 60 GM TP PRN TID for , (Reported) apply to morgan feet Entered as Reported by: Tiffany Dodson on 07/14/182110 Last Action: Continued on 12/31/184 by JOSE ANTONIO PORTILLO Clonazepam (Clonazepam ) 0.5 Mg Tablet, 0.5 MG PO TID for anti-anxiety, (Reported) Entered as Reported by: KENNEY YANG on 05/16/182321 Last Action: Continued on 12/30/182251 by LILIANA BROWN Clopidogrel Bisulfate (Clopidogrel) 75 Mg Tablet, 75 MG PO DAILYWBKFT for heart protection, #30 Prescribed by: LÓPEZ BARRIOS on 11/07/18 1217 Last Action: Continued on 12/30/182251 by LILIANA BROWN Docusate Sodium (Docusate Sodium) 100 Mg Capsule, 1 CAP PO BID for constipation, #14 (Reported) Entered as Reported by: MAGDI NUNEZ RN on 12/05/18 0116 Last Action: Continued on 12/30/182251 by LILIANA BROWN Famotidine (Famotidine) 20 Mg Tablet, 20 MG PO BID for stomach acid, (Reported) Entered as Reported by: KENNEY YANG on 05/16/182321 Last Action: Continued on 12/30/182251 by LILIANA BROWN Fluoxetine Hcl (Fluoxetine Hcl) 20 Mg Capsule, 1 CAP PO DAILY for anti- depressent, #90 Ref 1 (Reported) Entered as Reported by: KENNEY YANG on 05/16/182321 Last Action: Continued on 12/30/182251 by LILIANA BROWN Furosemide (Furosemide) 80 Mg Tablet, 80 MG PO BID for heart, (Reported) Entered as Reported by: NAM MORTENSEN on 10/09/17 1408 Last Action: Continued on 12/30/182251 by LILIANA BROWN Glimepiride (Amaryl) 2 Mg Tablet, 2 MG PO DAILY for 30 Days, #30 Prescribed by: RADHA PIERRE MD on 07/04/17 1010 Last Action: Continued on 12/30/182251 by LILIANA BROWN Metoprolol Tartrate (Metoprolol Tartrate) 25 Mg Tablet, 25 MG PO BID for FOR HYPERTENSION, #60 Ref 0 (Reported) Entered as Reported by: JOVANNY MORALES on 08/30/182319 Last Action: Continued on 12/30/182251 by LILIANA BROWN Ondansetron (Ondansetron Odt) 4 Mg Tab.rapdis, 1 TAB PO PRN Q6-8HRS, #16 Prescribed by: Celine Cevallos APRN on 08/13/182105 Last Action: Continued on 12/30/182251 by LILIANA BROWN Zolpidem Tartrate (Zolpidem Tartrate) 5 Mg Tablet, 5 MG PO QHS for insomnia, Ref 0 (Reported) Entered as Reported by: KENNEY YANG on 05/16/182321 Last Action: Continued on 12/30/182251 by LILIANA BROWN Scheduled PRN Albuterol Sulfate (Albuterol Sulfate Conc Neb Soln) 2.5 Mg/0.5 Ml Vial.neb, 5 MG NEB PRN PRN for WHEEZING, Ref 0 (Reported) Entered as Reported by: ROMY PHELAN on 10/07/172035 Last Action: Converted on 12/31/181340 by JHON ZAPIEN MD Albuterol Sulfate (Proair Hfa Inhaler) 8.5 Gm Hfa.aer.ad, 1 PUFF INH PRN Q6HRS PRN for SHORTNESS OF BREATH, #1 Ref 0 Prescribed by: MILLER ORTIZ MD on 06/21/18 1711 Last Action: Continued on 12/31/181340 by JHON ZAPIEN MD Nitroglycerin (NITROGLYCERIN SubLingual) 0.4 Mg Tab.subl, 0.4 MG SL PRN Q5MIN PRN for CHEST PAIN, (Reported) Entered as Reported by: LOYDA CELAYA on 11/01/16 0013 Last Action: Continued on 12/30/182251 by LILIANA BROWN Oxycodone/Apap 10-325 (Percocet 10-325 Mg Tablet ) 1 Each Tablet, 2 TAB PO PRN Q4-6HRS PRN for PAIN MDD 1, #20 Ref 0 Prescribed by: CATHIE KNIGHT on 01/03/19 0807 [Percogesic] , 1 TAB PO Q6-8HRS PRN for PAIN, #14 Prescribed by: JO-ANN BLOUNT MD on 12/10/18 1516 Last Action: Converted on 12/30/182251 by CATHIE LUA MD Jan 03, 2019 08:59
[2019-01-03] MEDS ORDERED: predniSONE 20 MG TABLET PO SCH (09:00)
--- NOTE | 2019-01-03 09:58 | PDOC ---
PULMONARY PROGRESS NOTES Subjective PT. is resting comfortably on 2 liters N/C, denies SYLVIA or increased cough. Vitals Vital Signs Date Time Temp Pulse Resp B/P (MAP) Pulse Ox O2 Delivery O2 Flow Rate FiO2 01/03/19 09:17 96 Nasal Cannula 2.0 01/03/19 08:22 58 140/53 01/03/19 07:00 98.0 18 98.0 ROS: No Nausea, No Chest Pain, No Abdominal Pain, No Increase Cough General: Oriented X4, No acute distress Lungs: Clear Cardiovascular: S1, S2 Abdomen: Soft, Other (obese ) Neuro Exam: Alert Extremities: No Edema Skin: Warm Labs Laboratory Tests Test 01/01/19 11:27 01/01/19 16:46 01/01/19 20:21 01/02/19 07:25 Glucose (Fingerstick) 301 mg/dL (70-99) 185 mg/dL (70-99) 202 mg/dL (70-99) 131 mg/dL (70-99) Test 01/02/19 10:51 01/02/19 16:34 01/02/19 20:20 01/03/19 08:01 Glucose (Fingerstick) 257 mg/dL (70-99) 213 mg/dL (70-99) 200 mg/dL (70-99) 91 mg/dL (70-99) Laboratory Tests Test 01/02/19 10:51 01/02/19 16:34 01/02/19 20:20 01/03/19 08:01 Glucose (Fingerstick) 257 mg/dL (70-99) 213 mg/dL (70-99) 200 mg/dL (70-99) 91 mg/dL (70-99) Medications Active Scripts Medications Dose Route/Sig Max Daily Dose Days Date Category Dose Instructions Percocet 10-325 Mg Tablet (Oxycodone/Acetaminophen) 1 Each Tablet 2 Tab PO PRN Q4-6HRS PRN MDD 1 12/16/18 Rx [Percogesic] 1 Tab PO Q6-8HRS PRN 12/10/18 Rx Docusate Sodium 100 Mg Capsule 1 Cap PO BID 12/05/18 Reported Clopidogrel (Clopidogrel Bisulfate) 75 Mg Tablet 75 Mg PO DAILYWBKFT 11/07/18 Rx Metoprolol Tartrate 25 Mg Tablet 25 Mg PO BID 08/30/18 Reported Ondansetron Odt (Ondansetron) 4 Mg Tab.rapdis 1 Tab PO PRN Q6-8HRS 08/13/18 Rx Capsaicin 60 Gm Cream..g. 60 Gm TP PRN TID 07/14/18 Reported apply to morgan feet Proair Hfa Inhaler (Albuterol Sulfate) 8.5 Gm Hfa.aer.ad 1 Puff INH PRN Q6HRS PRN 06/21/18 Rx Calcium 500 + Vit D 200 Caplet (Calcium Carbonate/Vitamin D3) 1 Each Tablet 1 Each PO DAILY 05/16/18 Reported Zolpidem Tartrate 5 Mg Tablet 5 Mg PO QHS 05/16/18 Reported Clonazepam (Clonazepam) 0.5 Mg Tablet 0.5 Mg PO TID 05/16/18 Reported Fluoxetine Hcl 20 Mg Capsule 1 Cap PO DAILY 05/16/18 Reported Famotidine 20 Mg Tablet 20 Mg PO BID 05/16/18 Reported Furosemide 80 Mg Tablet 80 Mg PO BID 10/09/17 Reported Albuterol Sulfate Conc Neb Soln (Albuterol Sulfate) 2.5 Mg/0.5 Ml Vial.neb 5 Mg NEB PRN PRN 10/07/17 Reported Amaryl (Glimepiride) 2 Mg Tablet 2 Mg PO DAILY 30 07/04/17 Rx NITROGLYCERIN SubLingual (Nitroglycerin) 0.4 Mg Tab.subl 0.4 Mg SL PRN Q5MIN PRN 11/01/16 Reported Atorvastatin Calcium 20 Mg Tablet 20 Mg PO HS 10/28/16 Reported Aspir 81 (Aspirin) 81 Mg Tablet.dr 1 Tab PO DAILY 10/28/16 Reported Impression . 1. Adult-onset asthma.---improved 2. Progressive dyspnea is secondary to above along with deconditioning, morbid obesity, and secondary pulmonary hypertension- improved 3. Obstructive sleep apnea---stable 4. Coronary artery disease---stable 5. Hyperlipidemia---stable 6. Anxiety disorder---stable 7. Peripheral neuropathy----stable Plan . 1. Flovent 220 two puffs twice daily today for D/C prescription provided 2. steroid taper, prescription provided 3. follow tre. cardiology recs. 4. Outpatient polysomnogram--- will have office schedule 5. DVT and GI prophylaxis:lovenox/pepcid Plan to D/C home today with home health Thank you LYNN BISHOP MD Jan 03, 2019 09:58
[2019-01-03 11:00] VITALS: BP 132/48
[2019-01-03 15:00] VITALS: BP 136/42
[2019-02-03] MEDS ORDERED: CALC500T31 PO (17:03)
[2019-02-03] MEDS ORDERED: AMLO5TAB10 PO (17:03)
[2019-02-03] MEDS ORDERED: LOSA100T14 PO (17:03)
== END 2019-01-03 16:40 | disposition home health service (06) | DRG 189 ==
LOC: ER 16:17 → 6 SOUTH 18:36 → 4 NORTH 01-02 19:08
PROVIDERS: ADMIT Family Medicine; ATTEND Family Medicine
DX: J96.21 Acute and chronic respiratory failure with hypoxia (principal); J45.901 Unspecified asthma with (acute) exacerbation; Z68.41 Body mass index [BMI] 40.0-44.9, adult; I13.0 Hypertensive heart and chronic kidney disease with heart failure and stage 1 through stage 4 chronic kidney disease, or unspecified chronic kidney disease; I50.30 Unspecified diastolic (congestive) heart failure; J96.22 Acute and chronic respiratory failure with hypercapnia; K21.9 Gastro-esophageal reflux disease without esophagitis; J44.9 Chronic obstructive pulmonary disease, unspecified; E78.00 Pure hypercholesterolemia, unspecified; I25.2 Old myocardial infarction; G89.29 Other chronic pain; Z96.659 Presence of unspecified artificial knee joint; I49.5 Sick sinus syndrome; E11.22 Type 2 diabetes mellitus with diabetic chronic kidney disease; I25.10 Atherosclerotic heart disease of native coronary artery without angina pectoris; G47.33 Obstructive sleep apnea (adult) (pediatric); E78.5 Hyperlipidemia, unspecified; E11.42 Type 2 diabetes mellitus with diabetic polyneuropathy; M19.90 Unspecified osteoarthritis, unspecified site; F17.210 Nicotine dependence, cigarettes, uncomplicated; F12.10 Cannabis abuse, uncomplicated; E66.01 Morbid (severe) obesity due to excess calories; F41.9 Anxiety disorder, unspecified; F32.9 Major depressive disorder, single episode, unspecified; K43.9 Ventral hernia without obstruction or gangrene; I27.29 Other secondary pulmonary hypertension; N18.9 Chronic kidney disease, unspecified; Z90.710 Acquired absence of both cervix and uterus; Z95.0 Presence of cardiac pacemaker; Z95.1 Presence of aortocoronary bypass graft; Z91.19 Patient's noncompliance with other medical treatment and regimen; Z88.6 Allergy status to analgesic agent
CPT/HCPCS: 36415; 36600; 71045; 80053; 80307; 82805; 82962; 83880; 84484; 85025; 85610; 90471; 90686; 93005; 94640; 94760; 96374; 96375; 96376; J1650; J1815; J2270; J2405; J2920; J2930; J7512; J7613; J7620; 99285-25; G0378

== ENCOUNTER 2019-01-12 12:08 | Inpatient (IN) | payer OTHER ==
[~2019-01-12] VITALS: Ht 162.6 cm; Wt 104.3 kg
[2019-01-12 12:49] LABS: BASO # 0.1 x10^3/uL (0.0-0.2); BASO % 1 % (0-3); EOS % 0 % (0-3); HEMATOCRIT 36.3 % (36.0-47.0); HEMOGLOBIN 11.7 g/dL (12.0-15.5); LYMPH # 1.3 x10^3/uL (1.0-4.8); LYMPH % 12 % (24-48); MEAN CORPUSCULAR HEMOGLOBIN 25 pg (25-35); MEAN CORPUSCULAR HGB CONC 32 g/dL (31-37); MEAN CORPUSCULAR VOLUME 78 fL (79-100); MONO # 0.6 x10^3/uL (0.0-1.1); MONO % 6 % (0-9); NEUT # 8.5 x10^3/uL (1.8-7.7); NEUT % 82 % (31-73); PLATELET COUNT 406 x10^3/uL (140-400); RED BLOOD COUNT 4.66 x10^6/uL (3.50-5.40); RED CELL DISTRIBUTION WIDTH 17.8 % (11.5-14.5); WHITE BLOOD COUNT 10.4 x10^3/uL (4.0-11.0)
[2019-01-12 13:05] LABS: CALCIUM 9.6 mg/dL (8.5-10.1); CREATININE 0.9 mg/dL (0.6-1.0); GFR 76.3; POTASSIUM 3.5 mmol/L (3.5-5.1)
[2019-01-12 13:16] LABS: ALBUMIN 3.4 g/dL (3.4-5.0); ALBUMIN/GLOBULIN RATIO 0.7 (1.0-1.7); TOTAL BILIRUBIN 0.5 mg/dL (0.2-1.0); TOTAL PROTEIN 8.3 g/dL (6.4-8.2)
--- NOTE | 2019-01-12 13:41 | PHYS DOC ---
Past Medical History Past Medical History: COPD, Diabetes-Type II, GERD, High Cholesterol, Hypertension, GA, Other Additional Past Medical Histor: O2 @3 L PRN, chronic pain, NEUROPATHY Past Surgical History: Angioplasty, Cholecystectomy, Hysterectomy, Knee Replacement, Pacemaker, Other Additional Past Surgical Histo: STENTS, CABG, HERNIA REPAIR, BREAST REDUCTION Alcohol Use: None Drug Use: None Adult General Chief Complaint Chief Complaint: CHEST PAIN HPI HPI 63-year-old female presents to the emergency department with complaints of chest pain, shortness of breath, nausea. Patient has recurrent visits to the emergency department for same complaints. She is To pain as sharp sensation center aspect of her chest. She states is been ongoing for 2 days. Patient does have chronic oxygen therapy 2 L nasal cannula at home. Nothing makes her pain worse, nothing makes her pain better. Review of Systems Review of Systems HENT: Denies nasal congestion or sore throat [] Respiratory: Denies cough or shortness of breath [] Cardiovascular: No additional information not addressed in HPI [] GI: Denies abdominal pain, + nausea, no vomiting, bloody stools or diarrhea [] : Denies dysuria or hematuria [] Musculoskeletal: Denies back pain or joint pain [] Integument: Denies rash or skin lesions [] Neurologic: Denies headache, focal weakness or sensory changes [] All other systems were reviewed and found to be within normal limits, except as documented in this note. Current Medications Current Medications Current Medications Medications (Trade) Dose Ordered Sig/[facility] Start Time Stop Time Status Last Admin Dose Admin Acetaminophen (Tylenol) 1,000 mg 1X ONCE 01/12/19 14:30 01/12/19 14:32 DC 01/12/19 14:40 1,000 MG Ketorolac Tromethamine (Toradol 30mg Vial) 30 mg 1X ONCE 01/12/19 14:45 01/12/19 14:47 DC 01/12/19 15:06 30 MG Nitroglycerin (Nitrostat) 0.4 mg PRN Q5MIN PRN 01/12/19 14:30 01/12/19 14:50 0.4 MG Ondansetron HCl (Zofran) 4 mg 1X ONCE 01/12/19 14:45 01/12/19 14:47 DC 01/12/19 15:07 4 MG Allergies Allergies Allergies Coded Allergies Type Severity Reaction Last Updated Verified ibuprofen Adverse Reaction Intermediate Nausea and Vomiting 12/02/17 Yes Physical Exam Physical Exam Constitutional: Well developed, well nourished, no acute distress, non-toxic appearance. [] HENT: Normocephalic, atraumatic, bilateral external ears normal, oropharynx moist, no oral exudates, nose normal. [] Eyes: PERRLA, EOMI, conjunctiva normal, no discharge. [] Neck: Normal range of motion, no tenderness, supple, no stridor. [] Cardiovascular:Heart rate regular rhythm, no murmur [] Lungs & Thorax: Bilateral breath sounds clear to auscultation [] Abdomen: Bowel sounds normal, soft, no tenderness, no masses, no pulsatile masses. [] Skin: Warm, dry, no erythema, no rash. [] Back: No tenderness, no CVA tenderness. [] Extremities: No tenderness, no cyanosis, no clubbing, ROM intact, no edema. [] Neurologic: Alert and oriented X 3, normal motor function, normal sensory function, no focal deficits noted. [] Psychologic: Affect normal, judgement normal, mood normal. [] Current Patient Data Vital Signs Vital Signs Date Time Temp Pulse Resp B/P (MAP) Pulse Ox O2 Delivery O2 Flow Rate FiO2 01/12/19 15:09 80 20 177/92 (120) 93 Room Air 01/12/19 12:16 98.4 98.4 Lab Values Laboratory Tests Test 01/12/19 12:36 01/12/19 15:15 White Blood Count 10.4 x10^3/uL (4.0-11.0) Red Blood Count 4.66 x10^6/uL (3.50-5.40) Hemoglobin 11.7 g/dL (12.0-15.5) L Hematocrit 36.3 % (36.0-47.0) Mean Corpuscular Volume 78 fL (79-100) L Mean Corpuscular Hemoglobin 25 pg (25-35) Mean Corpuscular Hemoglobin Concent 32 g/dL (31-37) Red Cell Distribution Width 17.8 % (11.5-14.5) H Platelet Count 406 x10^3/uL (140-400) H Neutrophils (%) (Auto) 82 % (31-73) H Lymphocytes (%) (Auto) 12 % (24-48) L Monocytes (%) (Auto) 6 % (0-9) Eosinophils (%) (Auto) 0 % (0-3) Basophils (%) (Auto) 1 % (0-3) Neutrophils # (Auto) 8.5 x10^3/uL (1.8-7.7) H Lymphocytes # (Auto) 1.3 x10^3/uL (1.0-4.8) Monocytes # (Auto) 0.6 x10^3/uL (0.0-1.1) Eosinophils # (Auto) 0.0 x10^3/uL (0.0-0.7) Basophils # (Auto) 0.1 x10^3/uL (0.0-0.2) Sodium Level 141 mmol/L (136-145) Potassium Level 3.5 mmol/L (3.5-5.1) Chloride Level 99 mmol/L (98-107) Carbon Dioxide Level 33 mmol/L (21-32) H Anion Gap 9 (6-14) Blood Urea Nitrogen 9 mg/dL (7-20) Creatinine 0.9 mg/dL (0.6-1.0) Estimated GFR (Cockcroft-Gault) 76.3 BUN/Creatinine Ratio 10 (6-20) Glucose Level 222 mg/dL (70-99) H Calcium Level 9.6 mg/dL (8.5-10.1) Total Bilirubin 0.5 mg/dL (0.2-1.0) Aspartate Amino Transferase (AST) 19 U/L (15-37) Alanine Aminotransferase (ALT) 21 U/L (14-59) Alkaline Phosphatase 94 U/L (46-116) Troponin I Quantitative < 0.017 ng/mL (0.000-0.055) < 0.017 ng/mL (0.000-0.055) Total Protein 8.3 g/dL (6.4-8.2) H Albumin 3.4 g/dL (3.4-5.0) Albumin/Globulin Ratio 0.7 (1.0-1.7) L Laboratory Tests 01/12/19 12:36 Laboratory Tests 01/12/19 12:36 EKG EKG EKG without acute process, normal sinus rhythm. No evidence of acute ST elevation GA[] Radiology/Procedures Radiology/Procedures [] Course & Med Decision Making Course & Med Decision Making Pertinent Labs and Imaging studies reviewed. (See chart for details) []63-year-old female presents to the emergency department with complaints of chest pain, shortness of breath, nausea. Patient has recurrent visits to the emergency department for same complaints. She is To pain as sharp sensation center aspect of her chest. She states is been ongoing for 2 days. Patient does have chronic oxygen therapy 2 L nasal cannula at home. Nothing makes her pain worse, nothing makes her pain better. Cardiac enzymes x 2 sets negative Patient with continued pain - discussed no narcotic use given frequent visits to the ER Discussed with Hospitalist (EUGENE) - she will admit and ask GI to see patient Dragon Disclaimer Dragon Disclaimer This electronic medical record was generated, in whole or in part, using a voice recognition dictation system. Departure Departure Impression: Primary Impression: Chest pain Additional Impression: HTN (hypertension) Disposition: 09 ADMITTED INPATIENT Admitting Physician: [facility] Referrals: JENSEN CUEVAS (PCP) Problem Qualifiers Primary Impression: Chest pain Chest pain type: unspecified Qualified Codes: R07.9 - Chest pain, unspecified Additional Impression: HTN (hypertension) Hypertension type: unspecified Qualified Codes: I10 - Essential (primary) hypertension FRAN WHITMORE MD Jan 12, 2019 13:41
--- NOTE | 2019-01-12 14:07 | RAD ---
Portable chest x-ray compared to similar examination dated January 09, 2019 for chest pain. FINDINGS: Heart size remains enlarged and grossly unchanged. There is likely some central vascular congestion without chi pulmonary edema, though vascularity may be augmented somewhat on the basis of portable technique. Findings are grossly unchanged from the prior examination. Pacemaker is present and stable. No new lung parenchymal abnormalities. IMPRESSION: 1. Cardiomegaly and central vascular congestion without chi pulmonary edema. Findings are grossly stable. Electronically signed by: Patel Marroquin MD (01/12/2019 2:04 PM) [facility]
[2019-01-12] MEDS ORDERED: ACETAMINOPHEN 500 MG TABLET PO ONE (14:30)
[2019-01-12] MEDS: NITROGLYCERIN SUBLINGUAL 0.4 MG BOTTLE OF 25. SL PRN ×2 (14:42→14:50)
[2019-01-12] MEDS ORDERED: ONDANSETRON PF 4 MG/2 ML VIAL. IV ONE (14:45)
[2019-01-12] MEDS ORDERED: KETOROLAC 30 MG/ML VIAL. IV ONE (14:45)
--- NOTE | 2019-01-12 16:10 | EKG ---
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
[2019-01-12] MEDS ORDERED: PERCOGESIC PO PRN (16:15)
[2019-01-12] MEDS ORDERED: ALBUTEROL SULFATE 2.5 MG/3 ML NEBU. INH PRN (16:15)
[2019-01-12] MEDS ORDERED: MAG HYDROX/ALUMINUM HYD/SIMETH 30 ML ORAL.SUSP PO PRN (16:15)
[2019-01-12] MEDS ORDERED: ALBUTEROL SULFATE 5 MG NEB PRN (16:15)
[2019-01-12] MEDS ORDERED: LIDO:MAALOX 1:1 20 ML SINGLE DOSE. SWSW ONE (16:15)
[2019-01-12] MEDS ORDERED: CAPSAICIN 0.025% TOPICAL CREAM 60GM TUBE. TP PRN (16:15)
[2019-01-12] MEDS ORDERED: LABETALOL 20 MG/4 ML DISP.SYRIN. IVP PRN (16:15)
[2019-01-12] MEDS ORDERED: NITROGLYCERIN SUBLINGUAL 0.4 MG BOTTLE OF 25. SL PRN (16:15)
--- NOTE | 2019-01-12 16:20 | PDOC1 ---
History and Physical Date of Admission Date of Admission DATE: 01/12/19 TIME: 16:13 Identification/Chief Complaint Chief Complaint CP Source Source: Caregiver, Chart review, Patient History of Present Illness History of Present Illness Admitted for CP, 63 AA female, gael garcia, obese, VIOLETTA on CPAP, COPD, sometimes needing BIPAP also gets fluid overloaded on lasix, long hx CP, CAD with cardiac stents, CABG scar, admitted for CP at rest, She has had extensive eval by cards in recent past. She is here almost monthly I look at her records all the way thru 2018, I dont see any GI notes? LAst CT abd 10/2018 shows small fat containing pelvic hernia, She asks if her hernia could be causing her sxs She has ahd 2 hernia repairs yrs ago done at and has scars to prove it, SBP 170s, usual for her, all labs ok She is agreebale to NO iv narcs while in house, just her home percocet I was chi asking her if she just needed percocet rx refill - she says that was not the issue She denies emesis, she points mid sternal to left, no weight loss, no real radiation Past Medical History Cardiovascular: CAD, CHF, HTN, OR, Hyperlipidemia, Other Pulmonary: Bronchitis, COPD CENTRAL NERVOUS SYSTEM: Periperal neuropathy GI: GERD Heme/Onc: No pertinent hx Hepatobiliary: Cholelithiasis Psych: No pertinent hx Musculoskeletal: Osteoarthritis, Weakness Rheumatologic: No pertinent hx Infectious disease: No pertinent hx Renal/: Chronic renal insuff Endocrine: Diabetes Past Surgical History Past Surgical History: Pacemaker, Appendectomy, Cholecystectomy, Total knee replacement, Hysterectomy Family History Family History: Heart Disease Family History: Parent Social History Smoke: No ALCOHOL: none Drugs: None, Marijuana Current Problem List Problem List Problems Medical Problems: (1) Chest pain Status: Acute (2) HTN (hypertension) Status: Chronic Current Medications Current Medications Current Medications Acetaminophen (Tylenol) 1,000 mg 1X ONCE PO Last administered on 01/12/19at 14:40; Start 01/12/19 at 14:30; Stop 01/12/19 at 14:32; Status DC Nitroglycerin (Nitrostat) 0.4 mg PRN Q5MIN PRN SL CHEST PAIN Last administered on 01/12/19at 14:50; Start 01/12/19 at 14:30 Ondansetron HCl (Zofran) 4 mg 1X ONCE IV Last administered on 01/12/19at 15:07; Start 01/12/19 at 14:45; Stop 01/12/19 at 14:47; Status DC Ketorolac Tromethamine (Toradol 30mg Vial) 30 mg 1X ONCE IV Last administered on 01/12/19at 15:06; Start 01/12/19 at 14:45; Stop 01/12/19 at 14:47; Status DC Active Scripts Active Percocet 10-325 Mg Tablet (Oxycodone/Acetaminophen) 1 Each Tablet 2 Tab PO PRN Q4-6HRS PRN MDD 1 [Percogesic] 1 Tab PO Q6-8HRS PRN Clopidogrel (Clopidogrel Bisulfate) 75 Mg Tablet 75 Mg PO DAILYWBKFT Ondansetron Odt (Ondansetron) 4 Mg Tab.rapdis 1 Tab PO PRN Q6-8HRS Proair Hfa Inhaler (Albuterol Sulfate) 8.5 Gm Hfa.aer.ad 1 Puff INH PRN Q6HRS PRN Amaryl (Glimepiride) 2 Mg Tablet 2 Mg PO DAILY 30 Days Reported Docusate Sodium 100 Mg Capsule 1 Cap PO BID Metoprolol Tartrate 25 Mg Tablet 25 Mg PO BID Capsaicin 60 Gm Cream..g. 60 Gm TP PRN TID apply to morgan feet Calcium 500 + Vit D 200 Caplet (Calcium Carbonate/Vitamin D3) 1 Each Tablet 1 Each PO DAILY Zolpidem Tartrate 5 Mg Tablet 5 Mg PO QHS Clonazepam (Clonazepam) 0.5 Mg Tablet 0.5 Mg PO TID Fluoxetine Hcl 20 Mg Capsule 1 Cap PO DAILY Famotidine 20 Mg Tablet 20 Mg PO BID Furosemide 80 Mg Tablet 80 Mg PO BID Albuterol Sulfate Conc Neb Soln (Albuterol Sulfate) 2.5 Mg/0.5 Ml Vial.neb 5 Mg NEB PRN PRN NITROGLYCERIN SubLingual (Nitroglycerin) 0.4 Mg Tab.subl 0.4 Mg SL PRN Q5MIN PRN Atorvastatin Calcium 20 Mg Tablet 20 Mg PO HS Aspir 81 (Aspirin) 81 Mg Tablet.dr 1 Tab PO DAILY Allergies Allergies: Coded Allergies: ibuprofen (Verified Adverse Reaction, Intermediate, Nausea and Vomiting, 12/02/17) ROS Review of System as per hPI, all else neg Physical Exam General: Alert, Oriented X3, Cooperative, No acute distress HEENT: Atraumatic, PERRLA, EOMI Lungs: Clear to auscultation, Normal air movement Heart: S1S2, RRR, no thrills, no rubs, no gallops, no murmurs Cardiovascular: S1, S2 Breasts: Normal, Rt breast nml w/o mass, Lt breast nml w/o mass, Nipples normal Abdomen: Normal bowel sounds, Soft, Other (scars from open laura and mid vertical scar from prev hernia repair x 2) Rectal Exam: not examined PELVIC: Nml ext genitalia Extremities: No clubbing, No cyanosis, No edema, Normal pulses, No tenderness/swelling Skin: No rashes, No breakdown, No significant lesion Neuro: Normal gait, Normal speech, Strength at 5/5 X4 ext, Normal tone, Sensation intact, Cranial nerves 3-12 NL, Reflexes 2+ Psych/Mental Status: Mental status NL, Mood NL Vitals Vitals Vital Signs Date Time Temp Pulse Resp B/P (MAP) Pulse Ox O2 Delivery O2 Flow Rate FiO2 01/12/19 15:09 80 20 177/92 (120) 93 Room Air 01/12/19 12:16 98.4 98.4 Labs Labs Laboratory Tests Test 01/12/19 12:36 01/12/19 15:15 White Blood Count 10.4 x10^3/uL (4.0-11.0) Red Blood Count 4.66 x10^6/uL (3.50-5.40) Hemoglobin 11.7 g/dL (12.0-15.5) Hematocrit 36.3 % (36.0-47.0) Mean Corpuscular Volume 78 fL (79-100) Mean Corpuscular Hemoglobin 25 pg (25-35) Mean Corpuscular Hemoglobin Concent 32 g/dL (31-37) Red Cell Distribution Width 17.8 % (11.5-14.5) Platelet Count 406 x10^3/uL (140-400) Neutrophils (%) (Auto) 82 % (31-73) Lymphocytes (%) (Auto) 12 % (24-48) Monocytes (%) (Auto) 6 % (0-9) Eosinophils (%) (Auto) 0 % (0-3) Basophils (%) (Auto) 1 % (0-3) Neutrophils # (Auto) 8.5 x10^3/uL (1.8-7.7) Lymphocytes # (Auto) 1.3 x10^3/uL (1.0-4.8) Monocytes # (Auto) 0.6 x10^3/uL (0.0-1.1) Eosinophils # (Auto) 0.0 x10^3/uL (0.0-0.7) Basophils # (Auto) 0.1 x10^3/uL (0.0-0.2) Sodium Level 141 mmol/L (136-145) Potassium Level 3.5 mmol/L (3.5-5.1) Chloride Level 99 mmol/L (98-107) Carbon Dioxide Level 33 mmol/L (21-32) Anion Gap 9 (6-14) Blood Urea Nitrogen 9 mg/dL (7-20) Creatinine 0.9 mg/dL (0.6-1.0) Estimated GFR (Cockcroft-Gault) 76.3 BUN/Creatinine Ratio 10 (6-20) Glucose Level 222 mg/dL (70-99) Calcium Level 9.6 mg/dL (8.5-10.1) Total Bilirubin 0.5 mg/dL (0.2-1.0) Aspartate Amino Transf (AST/SGOT) 19 U/L (15-37) Alanine Aminotransferase (ALT/SGPT) 21 U/L (14-59) Alkaline Phosphatase 94 U/L (46-116) Troponin I Quantitative < 0.017 ng/mL (0.000-0.055) < 0.017 ng/mL (0.000-0.055) Total Protein 8.3 g/dL (6.4-8.2) Albumin 3.4 g/dL (3.4-5.0) Albumin/Globulin Ratio 0.7 (1.0-1.7) Laboratory Tests Test 01/12/19 12:36 01/12/19 15:15 White Blood Count 10.4 x10^3/uL (4.0-11.0) Red Blood Count 4.66 x10^6/uL (3.50-5.40) Hemoglobin 11.7 g/dL (12.0-15.5) Hematocrit 36.3 % (36.0-47.0) Mean Corpuscular Volume 78 fL (79-100) Mean Corpuscular Hemoglobin 25 pg (25-35) Mean Corpuscular Hemoglobin Concent 32 g/dL (31-37) Red Cell Distribution Width 17.8 % (11.5-14.5) Platelet Count 406 x10^3/uL (140-400) Neutrophils (%) (Auto) 82 % (31-73) Lymphocytes (%) (Auto) 12 % (24-48) Monocytes (%) (Auto) 6 % (0-9) Eosinophils (%) (Auto) 0 % (0-3) Basophils (%) (Auto) 1 % (0-3) Neutrophils # (Auto) 8.5 x10^3/uL (1.8-7.7) Lymphocytes # (Auto) 1.3 x10^3/uL (1.0-4.8) Monocytes # (Auto) 0.6 x10^3/uL (0.0-1.1) Eosinophils # (Auto) 0.0 x10^3/uL (0.0-0.7) Basophils # (Auto) 0.1 x10^3/uL (0.0-0.2) Sodium Level 141 mmol/L (136-145) Potassium Level 3.5 mmol/L (3.5-5.1) Chloride Level 99 mmol/L (98-107) Carbon Dioxide Level 33 mmol/L (21-32) Anion Gap 9 (6-14) Blood Urea Nitrogen 9 mg/dL (7-20) Creatinine 0.9 mg/dL (0.6-1.0) Estimated GFR (Cockcroft-Gault) 76.3 BUN/Creatinine Ratio 10 (6-20) Glucose Level 222 mg/dL (70-99) Calcium Level 9.6 mg/dL (8.5-10.1) Total Bilirubin 0.5 mg/dL (0.2-1.0) Aspartate Amino Transf (AST/SGOT) 19 U/L (15-37) Alanine Aminotransferase (ALT/SGPT) 21 U/L (14-59) Alkaline Phosphatase 94 U/L (46-116) Troponin I Quantitative < 0.017 ng/mL (0.000-0.055) < 0.017 ng/mL (0.000-0.055) Total Protein 8.3 g/dL (6.4-8.2) Albumin 3.4 g/dL (3.4-5.0) Albumin/Globulin Ratio 0.7 (1.0-1.7) VTE Prophylaxis Ordered VTE Prophylaxis Devices: Yes VTE Pharmacological Prophylaxi: Yes Assessment/Plan Assessment/Plan CP/EPIG pain has had EXTENSIVE NEGATIVE CArDIAC work up, r.o GI in etiology including NUD, PUD, hernia causing probs? SMall fat containing pelvic hernia by CT 10/2018 - hx hernia repair 2x KU yrs ago Obesity AOCD NArc tolerant HX fluid overload VIOLETTA on CPAP PLAn: COnsut GI Resume home meds I held off re CT abd She is on pepcid at home Trial maalox etc CPAP home dose NO IV narcs Seen at ER FUll code DW ER CATHIE DOAN MD Jan 12, 2019 16:20
[2019-01-12] MEDS ORDERED: DEXTROSE 50% 25 GM / 50ML DISP.SYRIN. IV PRN (16:30)
--- NOTE | 2019-01-12 16:49 | PDOC2 ---
GI CONSULT Reason For Consult: Chest pain, epigastric pain with neg cardiac workup HPI: HPI: 63 y/o female seen in ER. We have seen her in the past for nausea, poor appetite, atypical chest pain, and ROXANE. EGD in 2007 w/ reflux esophagitis and negative CLOtest. No previous colonoscopy. Have recommended outpt scopes in the past which she has not pursued. Have also recommended PPI in place of H2 sybil - she takes Pepcid QD. S/p cholecystectomy. Nodular contour of liver and diverticulosis on past imaging. ?gastroparesis in the past - no documented GES. Says no longer on Plavix (though ordered here) but continues ASA. Chronic pain on Percocet and occasional NSAIDs. Says her PCP stopped iron pills because her Hgb was normal. This time, to ER w/ central chest stabbing and n/v for a couple days. Denies precipitating events and aggravating factors. Not worse when tries to eat though stays away from spicy foods in general. No hematemesis. Might have some abdominal pain sometimes - upper. No dysphagia, diarrhea, constipation, hematochezia, melena, or weight loss. Heart cath and echocardiogram earlier this year w/ recs for medical therapy. PMH: PMH: ASHD w/ prior stents/emergent CABG, HTN, VIOLETTA, DM, depression, neuropathy left TKR, umbilical hernia repair w/ mesh (redo x 1), reduction mammoplasties, appendectomy, pacemaker, cholecystomy, hysterectomy FH: Family History: CAD Social History: Smoke: No ALCOHOL: none Drugs: Marijuana ROS: GEN: Denies fevers, chills, sweats HEENT: Denies blurred vision, sore throat CV: +chest pain RESP: Denies shortness of air, cough GI: Per HPI : Denies hematuria, dysuria ENDO: Denies weight changes NEURO: Denies confusion, dizziness MSK: +chronic pain SKIN: Denies jaundice, pruritus Vitals: Vitals: Vital Signs Date Time Temp Pulse Resp B/P (MAP) Pulse Ox O2 Delivery O2 Flow Rate FiO2 01/12/19 15:09 80 20 177/92 (120) 93 Room Air 01/12/19 12:16 98.4 98.4 Labs: Labs: Laboratory Tests Test 01/12/19 12:36 01/12/19 15:15 White Blood Count 10.4 x10^3/uL (4.0-11.0) Red Blood Count 4.66 x10^6/uL (3.50-5.40) Hemoglobin 11.7 g/dL (12.0-15.5) Hematocrit 36.3 % (36.0-47.0) Mean Corpuscular Volume 78 fL (79-100) Mean Corpuscular Hemoglobin 25 pg (25-35) Mean Corpuscular Hemoglobin Concent 32 g/dL (31-37) Red Cell Distribution Width 17.8 % (11.5-14.5) Platelet Count 406 x10^3/uL (140-400) Neutrophils (%) (Auto) 82 % (31-73) Lymphocytes (%) (Auto) 12 % (24-48) Monocytes (%) (Auto) 6 % (0-9) Eosinophils (%) (Auto) 0 % (0-3) Basophils (%) (Auto) 1 % (0-3) Neutrophils # (Auto) 8.5 x10^3/uL (1.8-7.7) Lymphocytes # (Auto) 1.3 x10^3/uL (1.0-4.8) Monocytes # (Auto) 0.6 x10^3/uL (0.0-1.1) Eosinophils # (Auto) 0.0 x10^3/uL (0.0-0.7) Basophils # (Auto) 0.1 x10^3/uL (0.0-0.2) Sodium Level 141 mmol/L (136-145) Potassium Level 3.5 mmol/L (3.5-5.1) Chloride Level 99 mmol/L (98-107) Carbon Dioxide Level 33 mmol/L (21-32) Anion Gap 9 (6-14) Blood Urea Nitrogen 9 mg/dL (7-20) Creatinine 0.9 mg/dL (0.6-1.0) Estimated GFR (Cockcroft-Gault) 76.3 BUN/Creatinine Ratio 10 (6-20) Glucose Level 222 mg/dL (70-99) Calcium Level 9.6 mg/dL (8.5-10.1) Total Bilirubin 0.5 mg/dL (0.2-1.0) Aspartate Amino Transf (AST/SGOT) 19 U/L (15-37) Alanine Aminotransferase (ALT/SGPT) 21 U/L (14-59) Alkaline Phosphatase 94 U/L (46-116) Troponin I Quantitative < 0.017 ng/mL (0.000-0.055) < 0.017 ng/mL (0.000-0.055) Total Protein 8.3 g/dL (6.4-8.2) Albumin 3.4 g/dL (3.4-5.0) Albumin/Globulin Ratio 0.7 (1.0-1.7) Allergies: Coded Allergies: ibuprofen (Verified Adverse Reaction, Intermediate, Nausea and Vomiting, 12/02/17) Medications: Current Medications Medications (Trade) Dose Ordered Sig/Susan Route PRN Reason Start Time Stop Time Status Last Admin Dose Admin Acetaminophen (Tylenol) 1,000 mg 1X ONCE PO 01/12/19 14:30 01/12/19 14:32 DC 01/12/19 14:40 Nitroglycerin (Nitrostat) 0.4 mg PRN Q5MIN PRN SL CHEST PAIN 01/12/19 14:30 01/12/19 16:35 DC 01/12/19 14:50 Ondansetron HCl (Zofran) 4 mg 1X ONCE IV 01/12/19 14:45 01/12/19 14:47 DC 01/12/19 15:07 Ketorolac Tromethamine (Toradol 30mg Vial) 30 mg 1X ONCE IV 01/12/19 14:45 01/12/19 14:47 DC 01/12/19 15:06 Imaging: Imaging: CXR 01/12 IMPRESSION: 1. Cardiomegaly and central vascular congestion without chi pulmonary edema. Findings are grossly stable. PE: GEN: NAD HEENT: Atraumatic, PERRL LUNGS: CTAB HEART: RRR ABD: NABS, S/ND,v ague epigastric/periumbilical tenderness EXTREMITY: No edema SKIN: No rashes, no jaundice NEURO/PSYCH: A & O 3 A/P: A/P: Atypical chest pain, n/v, upper abd pain GERD - on H2 sybil, had EGD in 2007 ROXANE - PCP told her to stop iron CRC screen - none Diverticulosis S/p cholecystectomy HTN, CAD on ASA, DM, chronic pain -- Will review w/ Dr. Kolb - ?EGD - have recommended outpt 'scopes in the past. Try PPI in place of H2 sybil - can change to IV if indicated. Note GI cocktail ordered, await response. Check KUB w/ vomiting. SARAH HERNANDEZ Jan 12, 2019 16:49
[2019-01-12] MEDS: INSULIN LISPRO 300 UNITS/3 ML VIAL. SQ SCH (17:00)
[2019-01-12 17:30] VITALS: BP 182/58
[2019-01-12] MEDS: FUROSEMIDE 80 MG TABLET. PO SCH (18:55)
[2019-01-12] MEDS: oxyCODONE/APAP 10/325 1 TAB TABLET PO PRN (18:57)
[2019-01-12 19:06] VITALS: BP 183/79
[2019-01-12] MEDS: METOPROLOL TART IMMED RELEASE 25 MG TABLET. PO SCH (20:54)
[2019-01-12] MEDS: clonazePAM 0.5 MG TABLET PO SCH (20:54)
[2019-01-12] MEDS: DOCUSATE SODIUM 100 MG CAPSULE. PO SCH (20:56)
[2019-01-12] MEDS ORDERED: ZOLPIDEM 5 MG TABLET. PO SCH (21:00)
[2019-01-12] MEDS ORDERED: ATORVASTATIN CALCIUM 20 MG TABLET PO SCH (21:00)
[2019-01-12] MEDS ORDERED: FAMOTIDINE 20 MG TABLET. PO SCH (21:00)
[2019-01-12 23:00] VITALS: BP 149/73
[2019-01-13] MEDS: oxyCODONE/APAP 10/325 1 TAB TABLET PO PRN ×4 (00:32→17:04)
[2019-01-13 03:06] VITALS: BP_SYST 125; BP_SYST 158; BP_DIAS 50; BP_DIAS 72
--- NOTE | 2019-01-13 04:15 | RAD ---
Indication: Abdominal pain and nausea and vomiting TECHNIQUE: Single AP view of the abdomen COMPARISON: None FINDINGS: Clear lung bases. No abnormally dilated bowel loops. No abnormal calcific densities. Visualized bones are within normal limits. IMPRESSION: No evidence of high-grade bowel obstruction. Electronically signed by: Fede Purvis DO (01/13/2019 2:28 AM) [id number]
[2019-01-13] MEDS ORDERED: PANTOPRAZOLE 40 MG TABLET.DR. PO SCH (07:30)
--- NOTE | 2019-01-13 07:34 | NUR ---
Routine consult put in for this patient. Verified this am.
[2019-01-13 07:40] VITALS: BP 148/75
[2019-01-13] MEDS ORDERED: CLOPIDOGREL BISULFATE 75 MG TABLET PO SCH (08:00)
[2019-01-13] MEDS: INSULIN LISPRO 300 UNITS/3 ML VIAL. SQ SCH ×3 (08:00→17:00)
[2019-01-13] MEDS ORDERED: ASPIRIN ENTERIC COATED 81 MG TABLET.DR. PO SCH (09:00)
[2019-01-13] MEDS ORDERED: FLUoxetine HCL 20 MG CAPSULE PO SCH (09:00)
[2019-01-13] MEDS ORDERED: GLIMEPIRIDE 2 MG TABLET. PO SCH (09:00)
[2019-01-13] MEDS ORDERED: CALCIUM CARB/VIT D3 500/200 TABLET. PO SCH (09:00)
--- NOTE | 2019-01-13 09:50 | PDOC ---
Subjective: Subjective: Tolerating diet. Has a little chest/epigastric pain - GI cocktail helped some. Says she hasn't pursued outpt scopes due to transportation issues and she was moving. Objective: Vital Signs: Vital Signs Date Time Temp Pulse Resp B/P (MAP) Pulse Ox O2 Delivery O2 Flow Rate FiO2 01/13/19 07:40 98.6 66 20 148/75 (99) 94 Nasal Cannula 3.0 98.6 Labs: Laboratory Tests Test 01/12/19 12:36 01/12/19 15:15 01/12/19 17:21 01/12/19 21:55 White Blood Count 10.4 x10^3/uL Red Blood Count 4.66 x10^6/uL Hemoglobin 11.7 g/dL Hematocrit 36.3 % Mean Corpuscular Volume 78 fL Mean Corpuscular Hemoglobin 25 pg Mean Corpuscular Hemoglobin Concent 32 g/dL Red Cell Distribution Width 17.8 % Platelet Count 406 x10^3/uL Neutrophils (%) (Auto) 82 % Lymphocytes (%) (Auto) 12 % Monocytes (%) (Auto) 6 % Eosinophils (%) (Auto) 0 % Basophils (%) (Auto) 1 % Neutrophils # (Auto) 8.5 x10^3/uL Lymphocytes # (Auto) 1.3 x10^3/uL Monocytes # (Auto) 0.6 x10^3/uL Eosinophils # (Auto) 0.0 x10^3/uL Basophils # (Auto) 0.1 x10^3/uL Sodium Level 141 mmol/L Potassium Level 3.5 mmol/L Chloride Level 99 mmol/L Carbon Dioxide Level 33 mmol/L Anion Gap 9 Blood Urea Nitrogen 9 mg/dL Creatinine 0.9 mg/dL Estimated GFR (Cockcroft-Gault) 76.3 BUN/Creatinine Ratio 10 Glucose Level 222 mg/dL Calcium Level 9.6 mg/dL Total Bilirubin 0.5 mg/dL Aspartate Amino Transf (AST/SGOT) 19 U/L Alanine Aminotransferase (ALT/SGPT) 21 U/L Alkaline Phosphatase 94 U/L Troponin I Quantitative < 0.017 ng/mL < 0.017 ng/mL Total Protein 8.3 g/dL Albumin 3.4 g/dL Albumin/Globulin Ratio 0.7 Glucose (Fingerstick) 132 mg/dL 112 mg/dL Test 01/13/19 07:12 Glucose (Fingerstick) 113 mg/dL PE: GEN: NAD, eating breakfast LUNGS: NC 3L HEART: RRR ABD: epigastric discomfort NEURO/PSYCH: A & O 3 A/P: Atypical chest pain, upper abd pain N/v - resolved -- ADAT, DC per primary on PPI and iron, follow-up for outpt 'scopes - our office will contact to schedule. SARAH HERNANDEZ Jan 13, 2019 09:50
[2019-01-13] MEDS: METOPROLOL TART IMMED RELEASE 25 MG TABLET. PO SCH (09:52)
[2019-01-13] MEDS: clonazePAM 0.5 MG TABLET PO SCH ×2 (09:53→14:13)
[2019-01-13] MEDS: FUROSEMIDE 80 MG TABLET. PO SCH ×2 (09:53→14:13)
[2019-01-13] MEDS: DOCUSATE SODIUM 100 MG CAPSULE. PO SCH (09:54)
[2019-01-13 11:23] VITALS: BP 143/68
--- NOTE | 2019-01-13 11:27 | PDOC ---
[employer]GRESS NOTE Chief Complaint Chief Complaint Chest pain, Epigastric pain, HTN History of Present Illness History of Present Illness 63-year-old female presents to the emergency department with complaints of chest pain, shortness of breath, nausea. Patient has recurrent visits to the emergency department for same complaints. She is To pain as sharp sensation center aspect of her chest. She states is been ongoing for 2 days. Patient does have chronic oxygen therapy 2 L nasal cannula at home. Nothing makes her pain worse, nothing makes her pain better. Patient was seen and examined, discussed her pain medications, and she stated that she would like to increase them to every 4 hours. Vitals/I&O Vitals/I&O: Vital Signs Date Time Temp Pulse Resp B/P (MAP) Pulse Ox O2 Delivery O2 Flow Rate FiO2 01/13/19 11:21 Room Air 01/13/19 09:52 66 148/75 01/13/19 07:40 98.6 20 94 3.0 98.6 I & O 01/12/19 01/12/19 01/13/19 15:00 23:00 07:00 Intake Total 0 ml Balance 0 ml Physical Exam General: Alert, Oriented X3, Cooperative, No acute distress Lungs: Clear Abdomen: Normal bowel sounds, Soft, Other (scars from open laura and mid vertical scar from prev hernia repair x 2) Extremities: No clubbing, No cyanosis, No edema, Normal pulses, No tenderness/swelling Skin: No rashes, No breakdown, No significant lesion Labs Labs: Laboratory Tests Test 01/12/19 12:36 01/12/19 15:15 01/12/19 17:21 01/12/19 21:55 White Blood Count 10.4 x10^3/uL (4.0-11.0) Red Blood Count 4.66 x10^6/uL (3.50-5.40) Hemoglobin 11.7 g/dL (12.0-15.5) Hematocrit 36.3 % (36.0-47.0) Mean Corpuscular Volume 78 fL (79-100) Mean Corpuscular Hemoglobin 25 pg (25-35) Mean Corpuscular Hemoglobin Concent 32 g/dL (31-37) Red Cell Distribution Width 17.8 % (11.5-14.5) Platelet Count 406 x10^3/uL (140-400) Neutrophils (%) (Auto) 82 % (31-73) Lymphocytes (%) (Auto) 12 % (24-48) Monocytes (%) (Auto) 6 % (0-9) Eosinophils (%) (Auto) 0 % (0-3) Basophils (%) (Auto) 1 % (0-3) Neutrophils # (Auto) 8.5 x10^3/uL (1.8-7.7) Lymphocytes # (Auto) 1.3 x10^3/uL (1.0-4.8) Monocytes # (Auto) 0.6 x10^3/uL (0.0-1.1) Eosinophils # (Auto) 0.0 x10^3/uL (0.0-0.7) Basophils # (Auto) 0.1 x10^3/uL (0.0-0.2) Sodium Level 141 mmol/L (136-145) Potassium Level 3.5 mmol/L (3.5-5.1) Chloride Level 99 mmol/L (98-107) Carbon Dioxide Level 33 mmol/L (21-32) Anion Gap 9 (6-14) Blood Urea Nitrogen 9 mg/dL (7-20) Creatinine 0.9 mg/dL (0.6-1.0) Estimated GFR (Cockcroft-Gault) 76.3 BUN/Creatinine Ratio 10 (6-20) Glucose Level 222 mg/dL (70-99) Calcium Level 9.6 mg/dL (8.5-10.1) Total Bilirubin 0.5 mg/dL (0.2-1.0) Aspartate Amino Transf (AST/SGOT) 19 U/L (15-37) Alanine Aminotransferase (ALT/SGPT) 21 U/L (14-59) Alkaline Phosphatase 94 U/L (46-116) Troponin I Quantitative < 0.017 ng/mL (0.000-0.055) < 0.017 ng/mL (0.000-0.055) Total Protein 8.3 g/dL (6.4-8.2) Albumin 3.4 g/dL (3.4-5.0) Albumin/Globulin Ratio 0.7 (1.0-1.7) Glucose (Fingerstick) 132 mg/dL (70-99) 112 mg/dL (70-99) Test 01/13/19 07:12 Glucose (Fingerstick) 113 mg/dL (70-99) Review of Systems Review of Systems: Patient denies N/V and weakness Assessment and Plan Assessmemt and Plan Problems Medical Problems: (1) Chest pain Status: Acute (2) HTN (hypertension) Status: Chronic Assessment: Chest pain, HTN, Epigastric pain. Plan: 1. cardiac monitoring 2. serial enzymes 3. serial EKG 4. increase pain medication to every 4 hours. 5. DVT prophylaxis 6. Home meds 7. Full code 8. Await further input from GI Comment Review of Relevant I have reviewed the following items nolan (where applicable) has been applied. Medications: Current Medications Medications (Trade) Dose Ordered Sig/Susan Route PRN Reason Start Time Stop Time Status Last Admin Dose Admin Acetaminophen (Tylenol) 1,000 mg 1X ONCE PO 01/12/19 14:30 01/12/19 14:32 DC 01/12/19 14:40 Nitroglycerin (Nitrostat) 0.4 mg PRN Q5MIN PRN SL CHEST PAIN 01/12/19 14:30 01/12/19 16:35 DC 01/12/19 14:50 Ondansetron HCl (Zofran) 4 mg 1X ONCE IV 01/12/19 14:45 01/12/19 14:47 DC 01/12/19 15:07 Ketorolac Tromethamine (Toradol 30mg Vial) 30 mg 1X ONCE IV 01/12/19 14:45 01/12/19 14:47 DC 01/12/19 15:06 Aspirin (Ecotrin) 81 mg DAILY PO 01/13/19 09:00 01/13/19 09:53 Atorvastatin Calcium (Lipitor) 20 mg HS PO 01/12/19 21:00 01/12/19 20:54 Calcium/Vitamin D (Oscal D 500mg/ 200uts) 1 tab DAILY PO 01/13/19 09:00 01/13/19 09:53 Capsaicin (Zostrix) 60 tre PRN TID PRN TP TOPICAL PAIN 01/12/19 16:15 01/13/19 09:58 Clonazepam (KlonoPIN) 0.5 mg TID PO 01/12/19 21:00 01/13/19 09:53 Clopidogrel Bisulfate (Plavix) 75 mg DAILYWBKFT PO 01/13/19 08:00 01/13/19 09:53 Docusate Sodium (Colace) 100 mg BID PO 01/12/19 21:00 01/13/19 09:54 Fluoxetine HCl (PROzac) 20 mg DAILY PO 01/13/19 09:00 01/13/19 09:52 Furosemide (Lasix) 80 mg BID92 PO 01/12/19 17:00 01/13/19 09:53 Glimepiride (Amaryl) 2 mg DAILY PO 01/13/19 09:00 01/13/19 09:53 Metoprolol Tartrate (Lopressor) 25 mg BID PO 01/12/19 21:00 01/13/19 09:52 Oxycodone/ Acetaminophen (Percocet ) 2 tab PRN QID PRN PO MODERATE TO SEVERE PAIN 01/12/19 16:15 01/13/19 11:21 Zolpidem Tartrate (Ambien) 5 mg QHS PO 01/12/19 21:00 01/12/19 20:54 Multi-Ingredient Mouthwash/Gargle (Gi Cocktail) 20 ml 1X ONCE SWSW 01/12/19 16:15 01/12/19 16:33 DC 01/12/19 16:58 Pantoprazole Sodium (Protonix) 40 mg DAILYAC PO 01/13/19 07:30 01/13/19 09:53 PERICO BUCHANAN III DO Jan 13, 2019 11:27
[2019-01-13 15:30] VITALS: BP 156/58
--- NOTE | 2019-01-13 19:18 | NUR ---
Pt was escorted out to private vehicle in wheelchair, following up with GI next week in outpatient.
[2019-01-29] MEDS ORDERED: OXYC1TAB22 PO (08:57)
[2019-01-29] MEDS ORDERED: FERR325T14 PO (08:57)
[2019-01-29] MEDS ORDERED: PANT40TA77 PO (08:57)
[2019-02-03] MEDS ORDERED: AMLO5TAB10 PO (17:03)
[2019-02-03] MEDS ORDERED: LOSA100T14 PO (17:03)
[2019-02-03] MEDS ORDERED: CALC500T31 PO (17:03)
== END 2019-01-13 18:30 | disposition home or self-care (01) | DRG 392 ==
LOC: ER 12:08 → 6 SOUTH 16:02
PROVIDERS: ADMIT Internal Medicine; ATTEND Internal Medicine
DX: K21.9 Gastro-esophageal reflux disease without esophagitis (principal); I13.0 Hypertensive heart and chronic kidney disease with heart failure and stage 1 through stage 4 chronic kidney disease, or unspecified chronic kidney disease; D63.8 Anemia in other chronic diseases classified elsewhere; E11.22 Type 2 diabetes mellitus with diabetic chronic kidney disease; E11.43 Type 2 diabetes mellitus with diabetic autonomic (poly)neuropathy; E78.00 Pure hypercholesterolemia, unspecified; E78.5 Hyperlipidemia, unspecified; G47.33 Obstructive sleep apnea (adult) (pediatric); G89.29 Other chronic pain; I25.10 Atherosclerotic heart disease of native coronary artery without angina pectoris; I50.9 Heart failure, unspecified; J44.9 Chronic obstructive pulmonary disease, unspecified; N18.9 Chronic kidney disease, unspecified; Z79.891 Long term (current) use of opiate analgesic; Z82.49 Family history of ischemic heart disease and other diseases of the circulatory system; Z90.49 Acquired absence of other specified parts of digestive tract; Z90.710 Acquired absence of both cervix and uterus; Z95.1 Presence of aortocoronary bypass graft; Z96.659 Presence of unspecified artificial knee joint; Z99.81 Dependence on supplemental oxygen; F32.9 Major depressive disorder, single episode, unspecified; G62.9 Polyneuropathy, unspecified; M19.90 Unspecified osteoarthritis, unspecified site; E66.9 Obesity, unspecified; Z68.39 Body mass index [BMI] 39.0-39.9, adult
CPT/HCPCS: 36415; 71045; 74018; 80053; 82962; 84484; 85025; 93005; 96374; 96375; J1815; J1885; J2405; 99285-25; G0378

== ENCOUNTER 2019-01-27 16:26 | Inpatient (IN) | payer OTHER ==
[~2019-01-27] VITALS: Ht 162.6 cm; Wt 102.3 kg
[2019-01-27] MEDS ORDERED: ASPIRIN 325 MG TABLET PO ONE (17:00)
--- NOTE | 2019-01-27 17:18 | RAD ---
PORTABLE CHEST 1V History: Chest pain Comparison: January 12, 2019 Findings: No consolidation or pleural effusion. Enlarged cardiac silhouette, unchanged.. Unchanged left-sided pacemaker. Prior median sternotomy. Impression: 1. No acute cardiopulmonary process. 2. Enlarged cardiac silhouette, unchanged. Electronically signed by: Jaydon Machado DO (01/27/2019 5:15 PM) [id number]
[2019-01-27 17:42] LABS: CALCIUM 10.3 mg/dL (8.5-10.1); CREATININE 0.8 mg/dL (0.6-1.0); GFR 87.1; POTASSIUM 3.4 mmol/L (3.5-5.1)
[2019-01-27] MEDS ORDERED: ONDANSETRON PF 4 MG/2 ML VIAL. ONE (17:47)
[2019-01-27 17:49] LABS: ALBUMIN 3.5 g/dL (3.4-5.0); ALBUMIN/GLOBULIN RATIO 0.7 (1.0-1.7); MAGNESIUM 2.2 mg/dL (1.8-2.4); TOTAL BILIRUBIN 0.7 mg/dL (0.2-1.0); TOTAL PROTEIN 8.8 g/dL (6.4-8.2)
[2019-01-27] MEDS: MORPHINE SULFATE 4 MG/ML VIAL. IV/SQ PRN ×2 (17:49→19:09)
[2019-01-27 17:53] LABS: CREATINE KINASE 54 U/L (26-192)
[2019-01-27] MEDS ORDERED: ONDANSETRON PF 4 MG/2 ML VIAL. IVP ONE (18:00)
[2019-01-27] MEDS ORDERED: ONDANSETRON PF 4 MG/2 ML VIAL. IV ONE (18:00)
[2019-01-27] MEDS: NITROGLYCERIN SUBLINGUAL 0.4 MG BOTTLE OF 25. SL PRN ×2 (18:56→19:03)
[2019-01-27 18:58] LABS: BASO # 0.1 x10^3/uL (0.0-0.2); BASO % 1 % (0-3); EOS % 0 % (0-3); HEMATOCRIT 33.2 % (36.0-47.0); HEMOGLOBIN 10.4 g/dL (12.0-15.5); LYMPH % 13 % (24-48); MEAN CORPUSCULAR HEMOGLOBIN 25 pg (25-35); MEAN CORPUSCULAR HGB CONC 31 g/dL (31-37); MEAN CORPUSCULAR VOLUME 78 fL (79-100); MONO # 0.7 x10^3/uL (0.0-1.1); MONO % 8 % (0-9); NEUT # 6.3 x10^3/uL (1.8-7.7); NEUT % 78 % (31-73); PLATELET COUNT 350 x10^3/uL (140-400); RED BLOOD COUNT 4.24 x10^6/uL (3.50-5.40); RED CELL DISTRIBUTION WIDTH 17.4 % (11.5-14.5); WHITE BLOOD COUNT 8.1 x10^3/uL (4.0-11.0)
[2019-01-27] MEDS ORDERED: ONDANSETRON ODT 4 MG TAB.RAPDIS. PO PRN (19:00)
[2019-01-27] MEDS ORDERED: CAPSAICIN 0.025% TOPICAL CREAM 60GM TUBE. TP PRN (19:00)
[2019-01-27] MEDS ORDERED: ALBUTEROL SULFATE 5 MG NEB PRN (19:00)
[2019-01-27] MEDS ORDERED: ALBUTEROL SULFATE 2.5 MG/3 ML NEBU. INH PRN (19:00)
[2019-01-27 19:01] LABS: BILIRUBIN,URINE NEGATIVE (NEG); CLARITY,URINE CLEAR; COLOR,URINE YELLOW; NITRITE,URINE NEGATIVE (NEG); PROTEIN,URINE 30 mg/dL (NEG-TRACE)
[2019-01-27 19:10] LABS: BACTERIA,URINE MOD /HPF (0-FEW); RBC,URINE RARE /HPF (0-2); SQUAMOUS EPITHELIAL CELL,UR MOD /LPF
[2019-01-27 19:15] LABS: AMPHETAMINE/METHAMPHETAMINE NEG (NEG); BARBITURATES NEG (NEG); BENZODIAZEPINES NEG (NEG); CANNABINOIDS POS (NEG); COCAINE NEG (NEG); METHADONE NEG (NEG); OPIATES POS (NEG); PHENCYCLIDINE NEG (NEG)
[2019-01-27] MEDS ORDERED: MORPHINE SULFATE 4 MG/ML VIAL. IV PRN (20:45)
[2019-01-27] MEDS ORDERED: ONDANSETRON PF 4 MG/2 ML VIAL. IV PRN (20:45)
[2019-01-27] MEDS ORDERED: NITROGLYCERIN SUBLINGUAL 0.4 MG BOTTLE OF 25. SL PRN (20:45)
[2019-01-27] MEDS ORDERED: ACETAMINOPHEN 325 MG TABLET. PO PRN ×2 (20:45→21:15)
--- NOTE | 2019-01-27 20:53 | PDOC1 ---
History and Physical Date of Admission Date of Admission DATE: 01/27/19 TIME: 20:51 Source Source: Chart review, Patient History of Present Illness History of Present Illness Nupur is well known to this service she presents to the ER today (her birthday!) with right sided chest pain, about her usual story for chest pain, tight, with dyspnea and weakness. Pain 8/10, fluctuates. she feels nausea, but asked me for a sandwich in the ER. Past Medical History Cardiovascular: CAD, CHF, HTN, NM, Hyperlipidemia, Other Pulmonary: Bronchitis, COPD CENTRAL NERVOUS SYSTEM: Periperal neuropathy GI: GERD Heme/Onc: No pertinent hx Hepatobiliary: Cholelithiasis Psych: No pertinent hx Musculoskeletal: Osteoarthritis, Weakness Rheumatologic: No pertinent hx Infectious disease: No pertinent hx Renal/: Chronic renal insuff Endocrine: Diabetes Past Surgical History Past Surgical History: Pacemaker, Appendectomy, Cholecystectomy, Total knee replacement, Hysterectomy Family History Family History: Heart Disease Family History: Parent Social History Smoke: No ALCOHOL: none Drugs: Marijuana Current Medications Current Medications Current Medications Aspirin (Jahaira Aspirin) 325 mg 1X ONCE PO Last administered on 01/27/19at 17:49; Start 01/27/19 at 17:00; Stop 01/27/19 at 17:01; Status DC Nitroglycerin (Nitrostat) 0.4 mg PRN Q5MIN PRN SL CP RATING > 1/10 Last administered on 01/27/19at 19:03; Start 01/27/19 at 17:00; Stop 01/28/19 at 16:59 Morphine Sulfate (Morphine Sulfate) 4 mg PRN Q15MIN PRN IV/SQ PAIN GREATER THAN 3/10 Last administered on 01/27/19at 19:09; Start 01/27/19 at 17:00; Stop 01/28/19 at 16:59 Ondansetron HCl (Zofran) 4 mg STK-MED ONCE .ROUTE ; Start 01/27/19 at 17:47; Stop 01/27/19 at 17:47; Status DC Ondansetron HCl (Zofran) 4 mg 1X ONCE IV Last administered on 01/27/19at 17:52; Start 01/27/19 at 18:00; Stop 01/27/19 at 18:01; Status DC Ondansetron HCl (Zofran) 4 mg 1X ONCE IVP ; Start 01/27/19 at 18:00; Stop 01/27/19 at 18:01; Status DC Albuterol Sulfate (Ventolin Neb Soln) 2.5 mg PRN Q6HRS PRN INH SHORTNESS OF BREATH; Start 01/27/19 at 19:00 Aspirin (Ecotrin) 81 mg DAILY PO ; Start 01/28/19 at 09:00 Atorvastatin Calcium (Lipitor) 20 mg HS PO ; Start 01/27/19 at 21:00 Calcium/Vitamin D (Oscal D 500mg/ 200uts) 1 tab DAILY PO ; Start 01/28/19 at 09:00 Capsaicin (Zostrix) 60 tre PRN TID PRN TP PAIN; Start 01/27/19 at 19:00 Clonazepam (KlonoPIN) 0.5 mg TID PO ; Start 01/27/19 at 21:00 Clopidogrel Bisulfate (Plavix) 75 mg DAILYWBKFT PO ; Start 01/28/19 at 08:00 Docusate Sodium (Colace) 100 mg BID PO ; Start 01/27/19 at 21:00 Famotidine (Pepcid) 20 mg BID PO ; Start 01/27/19 at 21:00 Furosemide (Lasix) 80 mg BID94 PO ; Start 01/28/19 at 09:00 Glimepiride (Amaryl) 2 mg DAILY PO ; Start 01/28/19 at 09:00 Metoprolol Tartrate (Lopressor) 25 mg BID PO ; Start 01/27/19 at 21:00 Ondansetron HCl (Zofran Odt) 4 mg PRN Q6HRS PRN PO nausea; Start 01/27/19 at 19:00 Oxycodone/ Acetaminophen (Percocet 10/325) 2 tab PRN Q4HRS PRN PO PAIN; Start 01/27/19 at 19:00 Zolpidem Tartrate (Ambien) 5 mg QHS PO ; Start 01/27/19 at 21:00 Non-Formulary Medication (Albuterol Sulfate (Albuterol Sulfate Conc Neb Soln)) 5 mg PRN PRN NEB WHEEZING; Start 01/27/19 at 19:00; Status UNV Non-Formulary Medication ([Percogesic] ) 1 tab Q6-8HRS PRN PO PAIN; Start 01/27/19 at 19:00; Status UNV Ondansetron HCl (Zofran) 4 mg PRN Q8HRS PRN IV NAUSEA/VOMITING; Start 01/27/19 at 20:45; Stop 01/28/19 at 20:44; Status UNV Morphine Sulfate (Morphine Sulfate) 4 mg PRN Q2HR PRN IV PAIN; Start 01/27/19 at 20:45; Stop 01/28/19 at 20:44; Status UNV Acetaminophen (Tylenol) 650 mg PRN Q4HRS PRN PO FEVER; Start 01/27/19 at 20:45; Stop 01/28/19 at 20:44; Status UNV Nitroglycerin (Nitrostat) 0.4 mg PRN Q5MIN PRN SL CHEST PAIN; Start 01/27/19 at 20:45; Stop 01/28/19 at 20:44; Status UNV Active Scripts Active Percocet 10-325 Mg Tablet (Oxycodone/Acetaminophen) 1 Each Tablet 2 Tab PO PRN Q4-6HRS PRN MDD 1 [Percogesic] 1 Tab PO Q6-8HRS PRN Clopidogrel (Clopidogrel Bisulfate) 75 Mg Tablet 75 Mg PO DAILYWBKFT Ondansetron Odt (Ondansetron) 4 Mg Tab.rapdis 1 Tab PO PRN Q6-8HRS Proair Hfa Inhaler (Albuterol Sulfate) 8.5 Gm Hfa.aer.ad 1 Puff INH PRN Q6HRS PRN Amaryl (Glimepiride) 2 Mg Tablet 2 Mg PO DAILY 30 Days Reported Docusate Sodium 100 Mg Capsule 1 Cap PO BID Metoprolol Tartrate 25 Mg Tablet 25 Mg PO BID Capsaicin 60 Gm Cream..g. 60 Gm TP PRN TID apply to morgan feet Calcium 500 + Vit D 200 Caplet (Calcium Carbonate/Vitamin D3) 1 Each Tablet 1 Each PO DAILY Zolpidem Tartrate 5 Mg Tablet 5 Mg PO QHS Clonazepam (Clonazepam) 0.5 Mg Tablet 0.5 Mg PO TID Fluoxetine Hcl 20 Mg Capsule 1 Cap PO DAILY Famotidine 20 Mg Tablet 20 Mg PO BID Furosemide 80 Mg Tablet 80 Mg PO BID Albuterol Sulfate Conc Neb Soln (Albuterol Sulfate) 2.5 Mg/0.5 Ml Vial.neb 5 Mg NEB PRN PRN NITROGLYCERIN SubLingual (Nitroglycerin) 0.4 Mg Tab.subl 0.4 Mg SL PRN Q5MIN PRN Atorvastatin Calcium 20 Mg Tablet 20 Mg PO HS Aspir 81 (Aspirin) 81 Mg Tablet.dr 1 Tab PO DAILY Allergies Allergies: Coded Allergies: No Known Medication Allergies (Verified Allergy, Unknown, 01/13/19) ibuprofen (Verified Adverse Reaction, Intermediate, Nausea and Vomiting, 12/02/17) ROS General: YES: Fatigue, Malaise; No: Chills, Night Sweats, Appetite, Other PSYCHOLOGICAL ROS: YES: Irritablity, Sleep disturbances; No: Anxiety, Behavioral Disorder, Concentration difficultie, Decreased libido, Depression, Disorientation, Hallucinations, Hostility, Memory difficulties, Mood Swings, Obsessive thoughts, Suicidal ideation, Other Eyes: No Blurry vision, No Decreased vision, No Double vision, No Dry eyes, No Excessive tearing, No Eye Pain, No Itchy Eyes, No Loss of vision, No Photophobia, No Scotomata, No Uses contacts, No Uses glasses, No Other HEENT: No: Heacaches, Visual Changes, Hearing change, Nasal congestion, Nasal discharge, Oral lesions, Sinus pain, Sore Throat, Epistaxis, Sneezing, Snoring, Tinnitus, Vertigo, Vocal changes, Other Respiratory: YES: Shortness of breath, SOB with excertion; No: Cough, Hemoptysis, Orthopnea, Sputum Changes, Stridor, Tachypnea, W heezing, Other Cardiovascular: yes Chest Pain; No Palpitations, No Orthopnea, No Paroxysmal Noc. Dyspnea, No Edema, No Lt Headedness, No Other Genitourinary: No Dysuria, No Frequency, No Incontinence, No Hematuria, No Retention, No Discharge, No Urgency, No Pain, No Flank Pain, No Other, No , No , No , No , No , No , No Musculoskeletal: Yes Gait Disturbance, Yes Joint Pain, Yes Joint Stiffness; No Joint Swelling, No Muscle Pain, No Muscular Weakness, No Pain In:, No Swelling In:, No Other Neurological: Yes Gait Disturbance; No Behavorial Changes, No Bowel/Bladder ControlChng, No Confusion, No Dizziness, No Headaches, No Impaired Coord/balance, No Memory Loss, No Numbness/Tingling, No Seizures, No Speech Problems, No Tremors, No Visual Changes, No Weakness, No Other Skin: No Dry Skin, No Eczema, No Hair Changes, No Lumps, No Mole Changes, No Mottling, No Nail Changes, No Pruritus, No Rash, No Skin Lesion Changes, No O ther, No Acne Physical Exam General: Alert, Oriented X3, mild distress HEENT: Atraumatic, Mucous membr. moist/pink Lungs: Clear to auscultation Heart: S1S2, RRR, no gallops, no murmurs Extremities: No cyanosis, No edema Skin: No breakdown, No significant lesion Neuro: Normal tone, Sensation intact Psych/Mental Status: Mood NL Vitals Vitals Vital Signs Date Time Temp Pulse Resp B/P (MAP) Pulse Ox O2 Delivery O2 Flow Rate FiO2 01/27/19 20:38 63 176/76 (109) 98 Nasal Cannula 2.0 01/27/19 16:38 98.5 17 98.5 Labs Labs Laboratory Tests Test 01/27/19 17:15 01/27/19 18:40 01/27/19 18:54 Sodium Level 140 mmol/L (136-145) Potassium Level 3.4 mmol/L (3.5-5.1) Chloride Level 98 mmol/L (98-107) Carbon Dioxide Level 32 mmol/L (21-32) Anion Gap 10 (6-14) Blood Urea Nitrogen 8 mg/dL (7-20) Creatinine 0.8 mg/dL (0.6-1.0) Estimated GFR (Cockcroft-Gault) 87.1 BUN/Creatinine Ratio 10 (6-20) Glucose Level 138 mg/dL (70-99) Calcium Level 10.3 mg/dL (8.5-10.1) Magnesium Level 2.2 mg/dL (1.8-2.4) Total Bilirubin 0.7 mg/dL (0.2-1.0) Aspartate Amino Transf (AST/SGOT) 14 U/L (15-37) Alanine Aminotransferase (ALT/SGPT) 13 U/L (14-59) Alkaline Phosphatase 92 U/L (46-116) Creatine Kinase 54 U/L (26-192) Creatine Kinase MB (Mass) 0.5 ng/mL (0.0-3.6) Creatine Kinase MB Relative Index % (0-4) Troponin I Quantitative < 0.017 ng/mL (0.000-0.055) DY-Eyw-H-Type Natriuretic Peptide 3968 pg/mL (0-124) Total Protein 8.8 g/dL (6.4-8.2) Albumin 3.5 g/dL (3.4-5.0) Albumin/Globulin Ratio 0.7 (1.0-1.7) Thyroid Stimulating Hormone (TSH) 0.205 uIU/mL (0.358-3.74) White Blood Count 8.1 x10^3/uL (4.0-11.0) Red Blood Count 4.24 x10^6/uL (3.50-5.40) Hemoglobin 10.4 g/dL (12.0-15.5) Hematocrit 33.2 % (36.0-47.0) Mean Corpuscular Volume 78 fL (79-100) Mean Corpuscular Hemoglobin 25 pg (25-35) Mean Corpuscular Hemoglobin Concent 31 g/dL (31-37) Red Cell Distribution Width 17.4 % (11.5-14.5) Platelet Count 350 x10^3/uL (140-400) Neutrophils (%) (Auto) 78 % (31-73) Lymphocytes (%) (Auto) 13 % (24-48) Monocytes (%) (Auto) 8 % (0-9) Eosinophils (%) (Auto) 0 % (0-3) Basophils (%) (Auto) 1 % (0-3) Neutrophils # (Auto) 6.3 x10^3/uL (1.8-7.7) Lymphocytes # (Auto) 1.0 x10^3/uL (1.0-4.8) Monocytes # (Auto) 0.7 x10^3/uL (0.0-1.1) Eosinophils # (Auto) 0.0 x10^3/uL (0.0-0.7) Basophils # (Auto) 0.1 x10^3/uL (0.0-0.2) Urine Collection Type Unknown Urine Color Yellow Urine Clarity Clear Urine pH 8.0 Urine Specific [place] 1.015 Urine Protein 30 mg/dL (NEG-TRACE) Urine Glucose (UA) Negative mg/dL (NEG) Urine Ketones (Stick) Negative mg/dL (NEG) Urine Blood Negative (NEG) Urine Nitrite Negative (NEG) Urine Bilirubin Negative (NEG) Urine Urobilinogen Dipstick 2.0 mg/dL (0.2 mg/dL) Urine Leukocyte Esterase Negative (NEG) Urine RBC Rare /HPF (0-2) Urine WBC 1-4 /HPF (0-4) Urine Squamous Epithelial Cells Mod /LPF Urine Bacteria Mod /HPF (0-FEW) Urine Mucus Slight /LPF Urine Opiates Screen Pos (NEG) Urine Methadone Screen Neg (NEG) Urine Barbiturates Neg (NEG) Urine Phencyclidine Screen Neg (NEG) Urine Amphetamine/Methamphetamine Neg (NEG) Urine Benzodiazepines Screen Neg (NEG) Urine Cocaine Screen Neg (NEG) Urine Cannabinoids Screen Pos (NEG) Urine Ethyl Alcohol Neg (NEG) Laboratory Tests Test 01/27/19 17:15 01/27/19 18:40 01/27/19 18:54 Sodium Level 140 mmol/L (136-145) Potassium Level 3.4 mmol/L (3.5-5.1) Chloride Level 98 mmol/L (98-107) Carbon Dioxide Level 32 mmol/L (21-32) Anion Gap 10 (6-14) Blood Urea Nitrogen 8 mg/dL (7-20) Creatinine 0.8 mg/dL (0.6-1.0) Estimated GFR (Cockcroft-Gault) 87.1 BUN/Creatinine Ratio 10 (6-20) Glucose Level 138 mg/dL (70-99) Calcium Level 10.3 mg/dL (8.5-10.1) Magnesium Level 2.2 mg/dL (1.8-2.4) Total Bilirubin 0.7 mg/dL (0.2-1.0) Aspartate Amino Transf (AST/SGOT) 14 U/L (15-37) Alanine Aminotransferase (ALT/SGPT) 13 U/L (14-59) Alkaline Phosphatase 92 U/L (46-116) Creatine Kinase 54 U/L (26-192) Creatine Kinase MB (Mass) 0.5 ng/mL (0.0-3.6) Creatine Kinase MB Relative Index % (0-4) Troponin I Quantitative < 0.017 ng/mL (0.000-0.055) SR-Mjk-A-Type Natriuretic Peptide 3968 pg/mL (0-124) Total Protein 8.8 g/dL (6.4-8.2) Albumin 3.5 g/dL (3.4-5.0) Albumin/Globulin Ratio 0.7 (1.0-1.7) Thyroid Stimulating Hormone (TSH) 0.205 uIU/mL (0.358-3.74) White Blood Count 8.1 x10^3/uL (4.0-11.0) Red Blood Count 4.24 x10^6/uL (3.50-5.40) Hemoglobin 10.4 g/dL (12.0-15.5) Hematocrit 33.2 % (36.0-47.0) Mean Corpuscular Volume 78 fL (79-100) Mean Corpuscular Hemoglobin 25 pg (25-35) Mean Corpuscular Hemoglobin Concent 31 g/dL (31-37) Red Cell Distribution Width 17.4 % (11.5-14.5) Platelet Count 350 x10^3/uL (140-400) Neutrophils (%) (Auto) 78 % (31-73) Lymphocytes (%) (Auto) 13 % (24-48) Monocytes (%) (Auto) 8 % (0-9) Eosinophils (%) (Auto) 0 % (0-3) Basophils (%) (Auto) 1 % (0-3) Neutrophils # (Auto) 6.3 x10^3/uL (1.8-7.7) Lymphocytes # (Auto) 1.0 x10^3/uL (1.0-4.8) Monocytes # (Auto) 0.7 x10^3/uL (0.0-1.1) Eosinophils # (Auto) 0.0 x10^3/uL (0.0-0.7) Basophils # (Auto) 0.1 x10^3/uL (0.0-0.2) Urine Collection Type Unknown Urine Color Yellow Urine Clarity Clear Urine pH 8.0 Urine Specific [place] 1.015 Urine Protein 30 mg/dL (NEG-TRACE) Urine Glucose (UA) Negative mg/dL (NEG) Urine Ketones (Stick) Negative mg/dL (NEG) Urine Blood Negative (NEG) Urine Nitrite Negative (NEG) Urine Bilirubin Negative (NEG) Urine Urobilinogen Dipstick 2.0 mg/dL (0.2 mg/dL) Urine Leukocyte Esterase Negative (NEG) Urine RBC Rare /HPF (0-2) Urine WBC 1-4 /HPF (0-4) Urine Squamous Epithelial Cells Mod /LPF Urine Bacteria Mod /HPF (0-FEW) Urine Mucus Slight /LPF Urine Opiates Screen Pos (NEG) Urine Methadone Screen Neg (NEG) Urine Barbiturates Neg (NEG) Urine Phencyclidine Screen Neg (NEG) Urine Amphetamine/Methamphetamine Neg (NEG) Urine Benzodiazepines Screen Neg (NEG) Urine Cocaine Screen Neg (NEG) Urine Cannabinoids Screen Pos (NEG) Urine Ethyl Alcohol Neg (NEG) VTE Prophylaxis Ordered VTE Prophylaxis Devices: Yes VTE Pharmacological Prophylaxi: Yes Assessment/Plan Assessment/Plan acute chest pain, angina, r/o ACS iwth known history of CAD ATYPICAL CP HX diastolic CHF, HTN, LIPIDS, MORBID OBESITY, BMI 39 VIOLETTA LÓPEZ BARRIOS MD Jan 27, 2019 20:53
[2019-01-27] MEDS: oxyCODONE/APAP 10/325 1 TAB TABLET PO PRN (21:45)
[2019-01-27] MEDS: FAMOTIDINE 20 MG TABLET. PO SCH (21:45)
[2019-01-27] MEDS: ATORVASTATIN CALCIUM 20 MG TABLET PO SCH (21:45)
[2019-01-27] MEDS: DOCUSATE SODIUM 100 MG CAPSULE. PO SCH (21:45)
[2019-01-27] MEDS: ZOLPIDEM 5 MG TABLET. PO SCH (21:45)
[2019-01-27] MEDS: clonazePAM 0.5 MG TABLET PO SCH (21:45)
--- NOTE | 2019-01-27 21:45 | PHYS DOC ---
Past Medical History Past Medical History: Diabetes-Type II, Hypertension Additional Past Medical Histor: O2 @3 L PRN, chronic pain, NEUROPATHY (DESMOND CARSON APRN) Past Surgical History: Cholecystectomy, Hysterectomy Additional Past Surgical Histo: HERNIA REPAIR (DESMOND CARSON APRN) Alcohol Use: None Drug Use: None (DESMOND CARSON APRN) Adult General Chief Complaint Chief Complaint: CHEST PAIN HPI HPI Patient is a 64 year old female with a history of hypertension, diabetes type 2, ND, who presents to the ED today complaining over 8 out of 10 right sided chest pain described as sharp and intermittent that has been going on since Friday night after she had dinner. She states she thought was acid reflex but is not clearing up. Patient denies any exacerbating or relieving factors. She is also complaining of nausea with no vomiting. (DESMOND CARSON APRN) Review of Systems Review of Systems Constitutional: Denies fever or chills [] Eyes: Denies change in visual acuity, redness, or eye pain [] HENT: Denies nasal congestion or sore throat [] Respiratory: Denies cough or shortness of breath [] Cardiovascular: Reports right-sided chest pain GI: Reports nausea. Denies abdominal pain, vomiting, bloody stools or diarrhea [] : Denies dysuria or hematuria [] Musculoskeletal: Denies back pain or joint pain [] Integument: Denies rash or skin lesions [] Neurologic: Denies headache, focal weakness or sensory changes [] Endocrine: Denies polyuria or polydipsia [] All other systems were reviewed and found to be within normal limits, except as documented in this note. (DESMOND CARSON APRN) Current Medications Current Medications Current Medications Medications (Trade) Dose Ordered Sig/Susan Start Time Stop Time Status Last Admin Dose Admin Albuterol Sulfate (Ventolin Neb Soln) 2.5 mg PRN Q6HRS PRN 01/27/19 19:00 Aspirin (Jahaira Aspirin) 325 mg 1X ONCE 01/27/19 17:00 01/27/19 17:01 DC 01/27/19 17:49 325 MG Capsaicin (Zostrix) 60 tre PRN TID PRN 01/27/19 19:00 Morphine Sulfate (Morphine Sulfate) 4 mg PRN Q15MIN PRN 01/27/19 17:00 01/28/19 16:59 01/27/19 19:09 4 MG Nitroglycerin (Nitrostat) 0.4 mg PRN Q5MIN PRN 01/27/19 17:00 01/28/19 16:59 01/27/19 19:03 0.4 MG Non-Formulary Medication (Albuterol Sulfate (Albuterol Sulfate Conc Neb Soln)) 5 mg PRN PRN 01/27/19 19:00 UNV Ondansetron HCl (Zofran Odt) 4 mg PRN Q6HRS PRN 01/27/19 19:00 Ondansetron HCl (Zofran) 4 mg 1X ONCE 01/27/19 18:00 01/27/19 18:01 DC Oxycodone/ Acetaminophen (Percocet 10325) 2 tab PRN Q4HRS PRN 01/27/19 19:00 01/28/19 02:58 2 TAB (JUSTIN ROMERO DO) Allergies Allergies Allergies Coded Allergies Type Severity Reaction Last Updated Verified No Known Medication Allergies Allergy Unknown 01/13/19 Yes ibuprofen Adverse Reaction Intermediate Nausea and Vomiting 12/02/17 Yes (JUSTIN ROMERO DO) Physical Exam Physical Exam Constitutional: Well developed, well nourished, no acute distress, non-toxic appearance. [] HENT: Normocephalic, atraumatic, bilateral external ears normal, oropharynx moist, no oral exudates, nose normal. [] Eyes: PERRLA, EOMI, conjunctiva normal, no discharge. [] Neck: Normal range of motion, no tenderness, supple, no stridor. [] Cardiovascular:Heart rate regular rhythm, no murmur [] Lungs & Thorax: Bilateral breath sounds clear to auscultation [] Abdomen: Bowel sounds normal, soft, no tenderness, no masses, no pulsatile masses. [] Skin: Warm, dry, no erythema, no rash. [] Back: No tenderness, no CVA tenderness. [] Extremities: No tenderness, no cyanosis, no clubbing, ROM intact, no edema. [] Neurologic: Alert and oriented X 3, normal motor function, normal sensory function, no focal deficits noted. [] Psychologic: Affect normal, judgement normal, mood normal. [] (DESMOND CARSON APRN) Current Patient Data Vital Signs Vital Signs Date Time Temp Pulse Resp B/P (MAP) Pulse Ox O2 Delivery O2 Flow Rate FiO2 01/27/19 20:08 65 181/74 (109) 98 Nasal Cannula 2.0 01/27/19 16:38 98.5 17 98.5 (ROMEROJUSTIN Yovanny DO) Lab Values Laboratory Tests Test 01/27/19 17:15 01/27/19 18:40 01/27/19 18:54 Sodium Level 140 mmol/L (136-145) Potassium Level 3.4 mmol/L (3.5-5.1) L Chloride Level 98 mmol/L (98-107) Carbon Dioxide Level 32 mmol/L (21-32) Anion Gap 10 (6-14) Blood Urea Nitrogen 8 mg/dL (7-20) Creatinine 0.8 mg/dL (0.6-1.0) Estimated GFR (Cockcroft-Gault) 87.1 BUN/Creatinine Ratio 10 (6-20) Glucose Level 138 mg/dL (70-99) H Calcium Level 10.3 mg/dL (8.5-10.1) H Magnesium Level 2.2 mg/dL (1.8-2.4) Total Bilirubin 0.7 mg/dL (0.2-1.0) Aspartate Amino Transferase (AST) 14 U/L (15-37) L Alanine Aminotransferase (ALT) 13 U/L (14-59) L Alkaline Phosphatase 92 U/L (46-116) Creatine Kinase 54 U/L (26-192) Creatine Kinase MB (Mass) 0.5 ng/mL (0.0-3.6) Creatine Kinase MB Relative Index % (0-4) Troponin I Quantitative < 0.017 ng/mL (0.000-0.055) YJ-Tif-L-Type Natriuretic Peptide 3968 pg/mL (0-124) H Total Protein 8.8 g/dL (6.4-8.2) H Albumin 3.5 g/dL (3.4-5.0) Albumin/Globulin Ratio 0.7 (1.0-1.7) L Thyroid Stimulating Hormone (TSH) 0.205 uIU/mL (0.358-3.74) L White Blood Count 8.1 x10^3/uL (4.0-11.0) Red Blood Count 4.24 x10^6/uL (3.50-5.40) Hemoglobin 10.4 g/dL (12.0-15.5) L Hematocrit 33.2 % (36.0-47.0) L Mean Corpuscular Volume 78 fL (79-100) L Mean Corpuscular Hemoglobin 25 pg (25-35) Mean Corpuscular Hemoglobin Concent 31 g/dL (31-37) Red Cell Distribution Width 17.4 % (11.5-14.5) H Platelet Count 350 x10^3/uL (140-400) Neutrophils (%) (Auto) 78 % (31-73) H Lymphocytes (%) (Auto) 13 % (24-48) L Monocytes (%) (Auto) 8 % (0-9) Eosinophils (%) (Auto) 0 % (0-3) Basophils (%) (Auto) 1 % (0-3) Neutrophils # (Auto) 6.3 x10^3/uL (1.8-7.7) Lymphocytes # (Auto) 1.0 x10^3/uL (1.0-4.8) Monocytes # (Auto) 0.7 x10^3/uL (0.0-1.1) Eosinophils # (Auto) 0.0 x10^3/uL (0.0-0.7) Basophils # (Auto) 0.1 x10^3/uL (0.0-0.2) Urine Collection Type Unknown Urine Color Yellow Urine Clarity Clear Urine pH 8.0 Urine Specific [place] 1.015 Urine Protein 30 mg/dL (NEG-TRACE) Urine Glucose (UA) Negative mg/dL (NEG) Urine Ketones (Stick) Negative mg/dL (NEG) Urine Blood Negative (NEG) Urine Nitrite Negative (NEG) Urine Bilirubin Negative (NEG) Urine Urobilinogen Dipstick 2.0 mg/dL (0.2 mg/dL) Urine Leukocyte Esterase Negative (NEG) Urine RBC Rare /HPF (0-2) Urine WBC 1-4 /HPF (0-4) Urine Squamous Epithelial Cells Mod /LPF Urine Bacteria Mod /HPF (0-FEW) Urine Mucus Slight /LPF Urine Opiates Screen Pos (NEG) Urine Methadone Screen Neg (NEG) Urine Barbiturates Neg (NEG) Urine Phencyclidine Screen Neg (NEG) Urine Amphetamine/Methamphetamine Neg (NEG) Urine Benzodiazepines Screen Neg (NEG) Urine Cocaine Screen Neg (NEG) Urine Cannabinoids Screen Pos (NEG) Urine Ethyl Alcohol Neg (NEG) Laboratory Tests 01/27/19 18:40 Laboratory Tests 01/27/19 17:15 (JUSTIN ROMERO DO) EKG EKG [] (DESMOND CARSON APRN) Radiology/Procedures Radiology/Procedures []PROCEDURE: PORTABLE CHEST 1V PORTABLE CHEST 1V History: Chest pain Comparison: January 12, 2019 Findings: No consolidation or pleural effusion. Enlarged cardiac silhouette, unchanged.. Unchanged left-sided pacemaker. Prior median sternotomy. Impression: 1. No acute cardiopulmonary process. 2. Enlarged cardiac silhouette, unchanged. Electronically signed by: Jaydon Machado DO (01/27/2019 5:15 PM) [facility] DICTATED and SIGNED BY: JAYDON MACHADO DO DATE: 01/27/191714 (DESMOND CARSON APRN) Course & Med Decision Making Course & Med Decision Making Pertinent Labs and Imaging studies reviewed. (See chart for details) This is a 64-year-old female patient presenting to the ED today with chest pain that began on Friday. Patient is well known to this ED for similar complaints. Her cardiac workup today is negative. Spoke with Dr. Macias who accepted patient for admission Routine consult placed for cardiology (DESMOND CARSON APRN) Dragon Disclaimer Dragon Disclaimer This electronic medical record was generated, in whole or in part, using a voice recognition dictation system. (DESMOND CARSON APRN) Departure Departure Impression: Primary Impression: Chest pain Disposition: ADMITTED INPATIENT Condition: STABLE Referrals: JENSEN CUEVAS (PCP) The HEART Score for CP Pts HEART Score for Chest Pain: HEART Score for Chest Pain Response (Comments) Value History Slighlty/Non-Suspicious 0 ECG Nonspecific Repolarizatio 1 Age > 65 2 Risk Factors >3 Risk Factors or Hx CAD 2 Troponin < Normal Limit 0 Total 5 Risk Factors: Risk Factors: DM, Current or recent (<one month) smoker, HTN, HLP, family history of CAD, obesity. Risk Scores: Score 0 - 3: 2.5% MACE over next 6 weeks - Discharge Home Score 4 - 6: 20.3% MACE over next 6 weeks - Admit for Clinical Observation Score 7 - 10: 72.7% MACE over next 6 weeks - Early Invasive Strategies (DESMOND CARSON APRN) Attending Signature Attending Signature I have reviewed the PA/RADIOACTIVITY TECHNICIAN's note and plan of care. I was available for consultation as needed during the patient's visit in the emergency department. I agree with the clinical impression, plan, and disposition. (JUSTIN ROMERO DO) Problem Qualifiers Primary Impression: Chest pain Chest pain type: unspecified Qualified Codes: R07.9 - Chest pain, unspecified DESMOND CARSON APRN Jan 27, 2019 21:45 JUSTIN ROMERO DO Jan 28, 2019 03:34
[2019-01-27] MEDS: METOPROLOL TART IMMED RELEASE 25 MG TABLET. PO SCH (21:47)
[2019-01-27 23:00] VITALS: BP 126/40
[2019-01-28] VITALS (7 sets, daily range): BP systolic 120–163; BP diastolic 32–68
[2019-01-28] MEDS: oxyCODONE/APAP 10/325 1 TAB TABLET PO PRN ×4 (02:58→22:20)
[2019-01-28 05:46] LABS: BASO % 0 % (0-3); EOS # 0.1 x10^3/uL (0.0-0.7); EOS % 1 % (0-3); HEMATOCRIT 32.3 % (36.0-47.0); HEMOGLOBIN 10.3 g/dL (12.0-15.5); LYMPH # 1.5 x10^3/uL (1.0-4.8); LYMPH % 19 % (24-48); MEAN CORPUSCULAR HEMOGLOBIN 25 pg (25-35); MEAN CORPUSCULAR HGB CONC 32 g/dL (31-37); MEAN CORPUSCULAR VOLUME 79 fL (79-100); MONO # 0.8 x10^3/uL (0.0-1.1); MONO % 10 % (0-9); NEUT # 5.6 x10^3/uL (1.8-7.7); NEUT % 70 % (31-73); PLATELET COUNT 363 x10^3/uL (140-400); RED BLOOD COUNT 4.11 x10^6/uL (3.50-5.40); RED CELL DISTRIBUTION WIDTH 17.2 % (11.5-14.5); WHITE BLOOD COUNT 8.1 x10^3/uL (4.0-11.0)
--- NOTE | 2019-01-28 07:09 | EKG ---
[address] [place] [id number] Test Date: 2019-01-27 Test Time: 16:37:56 Pat Name: GRETCHEN BONILLA Department: Room: Gender: F Bursar: : 1955 Requested By: DESMOND CARSON Order Number: [id number] Reading MD: Measurements Intervals [place] Rate: 93 P: -67 DC: 110 QRS: -152 QRSD: 146 T: 58 QT: 402 QTc: 503 Interpretive Statements SUPRAVENTRICULAR RHYTHM ABNORMAL RIGHT SUPERIOR AXIS DEVIATION NON SPECIFIC INTRAVENTRICULAR BLOCK RVH WITH REPOLARIZATION ABNORMALITY QRS(T) CONTOUR ABNORMALITY CONSISTENT WITH ANTEROLATERAL INFARCT PROBABLY OLD CONSISTENT WITH INFERIOR INFARCT POSSIBLY RECENT ABNORMAL ECG RI6.01 No previous ECG available for comparison
[2019-01-28] MEDS: CLOPIDOGREL BISULFATE 75 MG TABLET PO SCH (08:58)
[2019-01-28] MEDS: DOCUSATE SODIUM 100 MG CAPSULE. PO SCH ×2 (08:58→21:04)
[2019-01-28] MEDS: METOPROLOL TART IMMED RELEASE 25 MG TABLET. PO SCH ×2 (08:58→22:32)
[2019-01-28] MEDS: ASPIRIN ENTERIC COATED 81 MG TABLET.DR. PO SCH (08:58)
[2019-01-28] MEDS: FAMOTIDINE 20 MG TABLET. PO SCH ×2 (08:58→21:04)
[2019-01-28] MEDS: FUROSEMIDE 80 MG TABLET. PO SCH ×2 (08:58→16:54)
[2019-01-28] MEDS: CALCIUM CARB/VIT D3 500/200 TABLET. PO SCH (08:58)
[2019-01-28] MEDS: clonazePAM 0.5 MG TABLET PO SCH ×3 (08:59→21:04)
[2019-01-28] MEDS: GLIMEPIRIDE 2 MG TABLET. PO SCH (09:01)
--- NOTE | 2019-01-28 12:34 | PDOC ---
PROGRESS NOTES Chief Complaint Chief Complaint acute chest pain, angina, r/o ACS iwth known history of CAD ATYPICAL CP HX diastolic CHF, HTN, LIPIDS, MORBID OBESITY, BMI 39 VIOLETTA History of Present Illness History of Present Illness weakness poor appetite chest pain she does not feel well enough to go Vitals Vitals Vital Signs Date Time Temp Pulse Resp B/P (MAP) Pulse Ox O2 Delivery O2 Flow Rate FiO2 01/28/19 11:07 98.1 60 18 123/59 (80) 98 Nasal Cannula 2.0 98.1 Physical Exam General: Alert, Oriented X3, No acute distress Lungs: Clear Extremities: No cyanosis, No edema Skin: No breakdown, No significant lesion Labs LABS Laboratory Tests Test 01/27/19 17:15 01/27/19 18:40 01/27/19 18:54 01/27/19 22:07 Sodium Level 140 mmol/L (136-145) Potassium Level 3.4 mmol/L (3.5-5.1) Chloride Level 98 mmol/L (98-107) Carbon Dioxide Level 32 mmol/L (21-32) Anion Gap 10 (6-14) Blood Urea Nitrogen 8 mg/dL (7-20) Creatinine 0.8 mg/dL (0.6-1.0) Estimated GFR (Cockcroft-Gault) 87.1 BUN/Creatinine Ratio 10 (6-20) Glucose Level 138 mg/dL (70-99) Calcium Level 10.3 mg/dL (8.5-10.1) Magnesium Level 2.2 mg/dL (1.8-2.4) Total Bilirubin 0.7 mg/dL (0.2-1.0) Aspartate Amino Transf (AST/SGOT) 14 U/L (15-37) Alanine Aminotransferase (ALT/SGPT) 13 U/L (14-59) Alkaline Phosphatase 92 U/L (46-116) Creatine Kinase 54 U/L (26-192) Creatine Kinase MB (Mass) 0.5 ng/mL (0.0-3.6) Creatine Kinase MB Relative Index % (0-4) Troponin I Quantitative < 0.017 ng/mL (0.000-0.055) CA-Yoh-Y-Type Natriuretic Peptide 3968 pg/mL (0-124) Total Protein 8.8 g/dL (6.4-8.2) Albumin 3.5 g/dL (3.4-5.0) Albumin/Globulin Ratio 0.7 (1.0-1.7) Thyroid Stimulating Hormone (TSH) 0.205 uIU/mL (0.358-3.74) White Blood Count 8.1 x10^3/uL (4.0-11.0) Red Blood Count 4.24 x10^6/uL (3.50-5.40) Hemoglobin 10.4 g/dL (12.0-15.5) Hematocrit 33.2 % (36.0-47.0) Mean Corpuscular Volume 78 fL (79-100) Mean Corpuscular Hemoglobin 25 pg (25-35) Mean Corpuscular Hemoglobin Concent 31 g/dL (31-37) Red Cell Distribution Width 17.4 % (11.5-14.5) Platelet Count 350 x10^3/uL (140-400) Neutrophils (%) (Auto) 78 % (31-73) Lymphocytes (%) (Auto) 13 % (24-48) Monocytes (%) (Auto) 8 % (0-9) Eosinophils (%) (Auto) 0 % (0-3) Basophils (%) (Auto) 1 % (0-3) Neutrophils # (Auto) 6.3 x10^3/uL (1.8-7.7) Lymphocytes # (Auto) 1.0 x10^3/uL (1.0-4.8) Monocytes # (Auto) 0.7 x10^3/uL (0.0-1.1) Eosinophils # (Auto) 0.0 x10^3/uL (0.0-0.7) Basophils # (Auto) 0.1 x10^3/uL (0.0-0.2) Urine Collection Type Unknown Urine Color Yellow Urine Clarity Clear Urine pH 8.0 Urine Specific [place] 1.015 Urine Protein 30 mg/dL (NEG-TRACE) Urine Glucose (UA) Negative mg/dL (NEG) Urine Ketones (Stick) Negative mg/dL (NEG) Urine Blood Negative (NEG) Urine Nitrite Negative (NEG) Urine Bilirubin Negative (NEG) Urine Urobilinogen Dipstick 2.0 mg/dL (0.2 mg/dL) Urine Leukocyte Esterase Negative (NEG) Urine RBC Rare /HPF (0-2) Urine WBC 1-4 /HPF (0-4) Urine Squamous Epithelial Cells Mod /LPF Urine Bacteria Mod /HPF (0-FEW) Urine Mucus Slight /LPF Urine Opiates Screen Pos (NEG) Urine Methadone Screen Neg (NEG) Urine Barbiturates Neg (NEG) Urine Phencyclidine Screen Neg (NEG) Urine Amphetamine/Methamphetamine Neg (NEG) Urine Benzodiazepines Screen Neg (NEG) Urine Cocaine Screen Neg (NEG) Urine Cannabinoids Screen Pos (NEG) Urine Ethyl Alcohol Neg (NEG) Glucose (Fingerstick) 93 mg/dL (70-99) Test 01/27/19 23:58 01/28/19 04:06 01/28/19 07:11 01/28/19 11:29 Troponin I Quantitative < 0.017 ng/mL (0.000-0.055) < 0.017 ng/mL (0.000-0.055) White Blood Count 8.1 x10^3/uL (4.0-11.0) Red Blood Count 4.11 x10^6/uL (3.50-5.40) Hemoglobin 10.3 g/dL (12.0-15.5) Hematocrit 32.3 % (36.0-47.0) Mean Corpuscular Volume 79 fL (79-100) Mean Corpuscular Hemoglobin 25 pg (25-35) Mean Corpuscular Hemoglobin Concent 32 g/dL (31-37) Red Cell Distribution Width 17.2 % (11.5-14.5) Platelet Count 363 x10^3/uL (140-400) Neutrophils (%) (Auto) 70 % (31-73) Lymphocytes (%) (Auto) 19 % (24-48) Monocytes (%) (Auto) 10 % (0-9) Eosinophils (%) (Auto) 1 % (0-3) Basophils (%) (Auto) 0 % (0-3) Neutrophils # (Auto) 5.6 x10^3/uL (1.8-7.7) Lymphocytes # (Auto) 1.5 x10^3/uL (1.0-4.8) Monocytes # (Auto) 0.8 x10^3/uL (0.0-1.1) Eosinophils # (Auto) 0.1 x10^3/uL (0.0-0.7) Basophils # (Auto) 0.0 x10^3/uL (0.0-0.2) Glucose (Fingerstick) 100 mg/dL (70-99) 105 mg/dL (70-99) Assessment and Plan Assessmemt and Plan Problems Medical Problems: (1) Chest pain Status: Acute Comment Review of Relevant I have reviewed the following items nolan (where applicable) has been applied. Labs Laboratory Tests Test 01/27/19 17:15 01/27/19 18:40 01/27/19 18:54 01/27/19 22:07 Sodium Level 140 mmol/L (136-145) Potassium Level 3.4 mmol/L (3.5-5.1) Chloride Level 98 mmol/L (98-107) Carbon Dioxide Level 32 mmol/L (21-32) Anion Gap 10 (6-14) Blood Urea Nitrogen 8 mg/dL (7-20) Creatinine 0.8 mg/dL (0.6-1.0) Estimated GFR (Cockcroft-Gault) 87.1 BUN/Creatinine Ratio 10 (6-20) Glucose Level 138 mg/dL (70-99) Calcium Level 10.3 mg/dL (8.5-10.1) Magnesium Level 2.2 mg/dL (1.8-2.4) Total Bilirubin 0.7 mg/dL (0.2-1.0) Aspartate Amino Transf (AST/SGOT) 14 U/L (15-37) Alanine Aminotransferase (ALT/SGPT) 13 U/L (14-59) Alkaline Phosphatase 92 U/L (46-116) Creatine Kinase 54 U/L (26-192) Creatine Kinase MB (Mass) 0.5 ng/mL (0.0-3.6) Creatine Kinase MB Relative Index % (0-4) Troponin I Quantitative < 0.017 ng/mL (0.000-0.055) CO-Pkw-K-Type Natriuretic Peptide 3968 pg/mL (0-124) Total Protein 8.8 g/dL (6.4-8.2) Albumin 3.5 g/dL (3.4-5.0) Albumin/Globulin Ratio 0.7 (1.0-1.7) Thyroid Stimulating Hormone (TSH) 0.205 uIU/mL (0.358-3.74) White Blood Count 8.1 x10^3/uL (4.0-11.0) Red Blood Count 4.24 x10^6/uL (3.50-5.40) Hemoglobin 10.4 g/dL (12.0-15.5) Hematocrit 33.2 % (36.0-47.0) Mean Corpuscular Volume 78 fL (79-100) Mean Corpuscular Hemoglobin 25 pg (25-35) Mean Corpuscular Hemoglobin Concent 31 g/dL (31-37) Red Cell Distribution Width 17.4 % (11.5-14.5) Platelet Count 350 x10^3/uL (140-400) Neutrophils (%) (Auto) 78 % (31-73) Lymphocytes (%) (Auto) 13 % (24-48) Monocytes (%) (Auto) 8 % (0-9) Eosinophils (%) (Auto) 0 % (0-3) Basophils (%) (Auto) 1 % (0-3) Neutrophils # (Auto) 6.3 x10^3/uL (1.8-7.7) Lymphocytes # (Auto) 1.0 x10^3/uL (1.0-4.8) Monocytes # (Auto) 0.7 x10^3/uL (0.0-1.1) Eosinophils # (Auto) 0.0 x10^3/uL (0.0-0.7) Basophils # (Auto) 0.1 x10^3/uL (0.0-0.2) Urine Collection Type Unknown Urine Color Yellow Urine Clarity Clear Urine pH 8.0 Urine Specific [place] 1.015 Urine Protein 30 mg/dL (NEG-TRACE) Urine Glucose (UA) Negative mg/dL (NEG) Urine Ketones (Stick) Negative mg/dL (NEG) Urine Blood Negative (NEG) Urine Nitrite Negative (NEG) Urine Bilirubin Negative (NEG) Urine Urobilinogen Dipstick 2.0 mg/dL (0.2 mg/dL) Urine Leukocyte Esterase Negative (NEG) Urine RBC Rare /HPF (0-2) Urine WBC 1-4 /HPF (0-4) Urine Squamous Epithelial Cells Mod /LPF Urine Bacteria Mod /HPF (0-FEW) Urine Mucus Slight /LPF Urine Opiates Screen Pos (NEG) Urine Methadone Screen Neg (NEG) Urine Barbiturates Neg (NEG) Urine Phencyclidine Screen Neg (NEG) Urine Amphetamine/Methamphetamine Neg (NEG) Urine Benzodiazepines Screen Neg (NEG) Urine Cocaine Screen Neg (NEG) Urine Cannabinoids Screen Pos (NEG) Urine Ethyl Alcohol Neg (NEG) Glucose (Fingerstick) 93 mg/dL (70-99) Test 01/27/19 23:58 01/28/19 04:06 01/28/19 07:11 01/28/19 11:29 Troponin I Quantitative < 0.017 ng/mL (0.000-0.055) < 0.017 ng/mL (0.000-0.055) White Blood Count 8.1 x10^3/uL (4.0-11.0) Red Blood Count 4.11 x10^6/uL (3.50-5.40) Hemoglobin 10.3 g/dL (12.0-15.5) Hematocrit 32.3 % (36.0-47.0) Mean Corpuscular Volume 79 fL (79-100) Mean Corpuscular Hemoglobin 25 pg (25-35) Mean Corpuscular Hemoglobin Concent 32 g/dL (31-37) Red Cell Distribution Width 17.2 % (11.5-14.5) Platelet Count 363 x10^3/uL (140-400) Neutrophils (%) (Auto) 70 % (31-73) Lymphocytes (%) (Auto) 19 % (24-48) Monocytes (%) (Auto) 10 % (0-9) Eosinophils (%) (Auto) 1 % (0-3) Basophils (%) (Auto) 0 % (0-3) Neutrophils # (Auto) 5.6 x10^3/uL (1.8-7.7) Lymphocytes # (Auto) 1.5 x10^3/uL (1.0-4.8) Monocytes # (Auto) 0.8 x10^3/uL (0.0-1.1) Eosinophils # (Auto) 0.1 x10^3/uL (0.0-0.7) Basophils # (Auto) 0.0 x10^3/uL (0.0-0.2) Glucose (Fingerstick) 100 mg/dL (70-99) 105 mg/dL (70-99) Laboratory Tests Test 01/27/19 17:15 01/27/19 18:40 01/27/19 18:54 01/27/19 22:07 Sodium Level 140 mmol/L (136-145) Potassium Level 3.4 mmol/L (3.5-5.1) Chloride Level 98 mmol/L (98-107) Carbon Dioxide Level 32 mmol/L (21-32) Anion Gap 10 (6-14) Blood Urea Nitrogen 8 mg/dL (7-20) Creatinine 0.8 mg/dL (0.6-1.0) Estimated GFR (Cockcroft-Gault) 87.1 BUN/Creatinine Ratio 10 (6-20) Glucose Level 138 mg/dL (70-99) Calcium Level 10.3 mg/dL (8.5-10.1) Magnesium Level 2.2 mg/dL (1.8-2.4) Total Bilirubin 0.7 mg/dL (0.2-1.0) Aspartate Amino Transf (AST/SGOT) 14 U/L (15-37) Alanine Aminotransferase (ALT/SGPT) 13 U/L (14-59) Alkaline Phosphatase 92 U/L (46-116) Creatine Kinase 54 U/L (26-192) Creatine Kinase MB (Mass) 0.5 ng/mL (0.0-3.6) Creatine Kinase MB Relative Index % (0-4) Troponin I Quantitative < 0.017 ng/mL (0.000-0.055) FJ-Ztt-B-Type Natriuretic Peptide 3968 pg/mL (0-124) Total Protein 8.8 g/dL (6.4-8.2) Albumin 3.5 g/dL (3.4-5.0) Albumin/Globulin Ratio 0.7 (1.0-1.7) Thyroid Stimulating Hormone (TSH) 0.205 uIU/mL (0.358-3.74) White Blood Count 8.1 x10^3/uL (4.0-11.0) Red Blood Count 4.24 x10^6/uL (3.50-5.40) Hemoglobin 10.4 g/dL (12.0-15.5) Hematocrit 33.2 % (36.0-47.0) Mean Corpuscular Volume 78 fL (79-100) Mean Corpuscular Hemoglobin 25 pg (25-35) Mean Corpuscular Hemoglobin Concent 31 g/dL (31-37) Red Cell Distribution Width 17.4 % (11.5-14.5) Platelet Count 350 x10^3/uL (140-400) Neutrophils (%) (Auto) 78 % (31-73) Lymphocytes (%) (Auto) 13 % (24-48) Monocytes (%) (Auto) 8 % (0-9) Eosinophils (%) (Auto) 0 % (0-3) Basophils (%) (Auto) 1 % (0-3) Neutrophils # (Auto) 6.3 x10^3/uL (1.8-7.7) Lymphocytes # (Auto) 1.0 x10^3/uL (1.0-4.8) Monocytes # (Auto) 0.7 x10^3/uL (0.0-1.1) Eosinophils # (Auto) 0.0 x10^3/uL (0.0-0.7) Basophils # (Auto) 0.1 x10^3/uL (0.0-0.2) Urine Collection Type Unknown Urine Color Yellow Urine Clarity Clear Urine pH 8.0 Urine Specific [place] 1.015 Urine Protein 30 mg/dL (NEG-TRACE) Urine Glucose (UA) Negative mg/dL (NEG) Urine Ketones (Stick) Negative mg/dL (NEG) Urine Blood Negative (NEG) Urine Nitrite Negative (NEG) Urine Bilirubin Negative (NEG) Urine Urobilinogen Dipstick 2.0 mg/dL (0.2 mg/dL) Urine Leukocyte Esterase Negative (NEG) Urine RBC Rare /HPF (0-2) Urine WBC 1-4 /HPF (0-4) Urine Squamous Epithelial Cells Mod /LPF Urine Bacteria Mod /HPF (0-FEW) Urine Mucus Slight /LPF Urine Opiates Screen Pos (NEG) Urine Methadone Screen Neg (NEG) Urine Barbiturates Neg (NEG) Urine Phencyclidine Screen Neg (NEG) Urine Amphetamine/Methamphetamine Neg (NEG) Urine Benzodiazepines Screen Neg (NEG) Urine Cocaine Screen Neg (NEG) Urine Cannabinoids Screen Pos (NEG) Urine Ethyl Alcohol Neg (NEG) Glucose (Fingerstick) 93 mg/dL (70-99) Test 01/27/19 23:58 01/28/19 04:06 01/28/19 07:11 01/28/19 11:29 Troponin I Quantitative < 0.017 ng/mL (0.000-0.055) < 0.017 ng/mL (0.000-0.055) White Blood Count 8.1 x10^3/uL (4.0-11.0) Red Blood Count 4.11 x10^6/uL (3.50-5.40) Hemoglobin 10.3 g/dL (12.0-15.5) Hematocrit 32.3 % (36.0-47.0) Mean Corpuscular Volume 79 fL (79-100) Mean Corpuscular Hemoglobin 25 pg (25-35) Mean Corpuscular Hemoglobin Concent 32 g/dL (31-37) Red Cell Distribution Width 17.2 % (11.5-14.5) Platelet Count 363 x10^3/uL (140-400) Neutrophils (%) (Auto) 70 % (31-73) Lymphocytes (%) (Auto) 19 % (24-48) Monocytes (%) (Auto) 10 % (0-9) Eosinophils (%) (Auto) 1 % (0-3) Basophils (%) (Auto) 0 % (0-3) Neutrophils # (Auto) 5.6 x10^3/uL (1.8-7.7) Lymphocytes # (Auto) 1.5 x10^3/uL (1.0-4.8) Monocytes # (Auto) 0.8 x10^3/uL (0.0-1.1) Eosinophils # (Auto) 0.1 x10^3/uL (0.0-0.7) Basophils # (Auto) 0.0 x10^3/uL (0.0-0.2) Glucose (Fingerstick) 100 mg/dL (70-99) 105 mg/dL (70-99) Medications Current Medications Aspirin (Jahaira Aspirin) 325 mg 1X ONCE PO Last administered on 01/27/19at 17:49; Start 01/27/19 at 17:00; Stop 01/27/19 at 17:01; Status DC Nitroglycerin (Nitrostat) 0.4 mg PRN Q5MIN PRN SL CP RATING > 1/10 Last administered on 01/27/19at 19:03; Start 01/27/19 at 17:00; Stop 01/28/19 at 16:59 Morphine Sulfate (Morphine Sulfate) 4 mg PRN Q15MIN PRN IV/SQ PAIN GREATER THAN 3/10 Last administered on 01/27/19 19:09; Start 01/27/19 at 17:00; Stop 01/28/19 at 16:59 Ondansetron HCl (Zofran) 4 mg STK-MED ONCE .ROUTE ; Start 01/27/19 at 17:47; Stop 01/27/19 at 17:47; Status DC Ondansetron HCl (Zofran) 4 mg 1X ONCE IV Last administered on 01/27/19at 17:52; Start 01/27/19 at 18:00; Stop 01/27/19 at 18:01; Status DC Ondansetron HCl (Zofran) 4 mg 1X ONCE IVP ; Start 01/27/19 at 18:00; Stop 01/27/19 at 18:01; Status DC Albuterol Sulfate (Ventolin Neb Soln) 2.5 mg PRN Q6HRS PRN INH SHORTNESS OF BREATH; Start 01/27/19 at 19:00 Aspirin (Ecotrin) 81 mg DAILY PO Last administered on 01/28/19 08:58; Start 01/28/19 at 09:00 Atorvastatin Calcium (Lipitor) 20 mg HS PO Last administered on 01/27/19at 21:45; Start 01/27/19 at 21:00 Calcium/Vitamin D (Oscal D 500mg/ 200uts) 1 tab DAILY PO Last administered on 01/28/19 08:58; Start 01/28/19 at 09:00 Capsaicin (Zostrix) 60 tre PRN TID PRN TP PAIN; Start 01/27/19 at 19:00 Clonazepam (KlonoPIN) 0.5 mg TID PO Last administered on 01/28/19at 08:59; Start 01/27/19 at 21:00 Clopidogrel Bisulfate (Plavix) 75 mg DAILYWBKFT PO Last administered on 01/28/19 08:58; Start 01/28/19 at 08:00 Docusate Sodium (Colace) 100 mg BID PO Last administered on 01/28/19 08:58; Start 01/27/19 at 21:00 Famotidine (Pepcid) 20 mg BID PO Last administered on 01/28/19 08:58; Start 01/27/19 at 21:00 Furosemide (Lasix) 80 mg BID94 PO Last administered on 01/28/19 08:58; Start 01/28/19 at 09:00 Glimepiride (Amaryl) 2 mg DAILY PO Last administered on 01/28/19at 09:01; Start 01/28/19 at 09:00 Metoprolol Tartrate (Lopressor) 25 mg BID PO Last administered on 01/28/19 08:58; Start 01/27/19 at 21:00 Ondansetron HCl (Zofran Odt) 4 mg PRN Q6HRS PRN PO nausea; Start 01/27/19 at 19:00 Oxycodone/ Acetaminophen (Percocet 10/325) 2 tab PRN Q4HRS PRN PO PAIN Last administered on 01/28/19 07:51; Start 01/27/19 at 19:00 Zolpidem Tartrate (Ambien) 5 mg QHS PO Last administered on 01/27/19at 21:45; Start 01/27/19 at 21:00 Non-Formulary Medication (Albuterol Sulfate (Albuterol Sulfate Conc Neb Soln)) 5 mg PRN PRN NEB WHEEZING; Start 01/27/19 at 19:00; Status UNV Acetaminophen (Tylenol) 650 mg PRN Q6HRS PRN PO MILD PAIN / TEMP; Start 1 03/29/18 at 21:15 Ondansetron HCl (Zofran) 4 mg PRN Q8HRS PRN IV NAUSEA/VOMITING; Start 01/27/19 at 20:45; Stop 01/28/19 at 20:44 Morphine Sulfate (Morphine Sulfate) 4 mg PRN Q2HR PRN IV PAIN; Start 01/27/19 at 20:45; Stop 01/28/19 at 20:44 Acetaminophen (Tylenol) 650 mg PRN Q4HRS PRN PO FEVER; Start 01/27/19 at 20:45; Stop 01/27/19 at 21:02; Status DC Nitroglycerin (Nitrostat) 0.4 mg PRN Q5MIN PRN SL CHEST PAIN; Start 01/27/19 at 20:45; Stop 01/28/19 at 20:44 Active Scripts Active Percocet 10-325 Mg Tablet (Oxycodone/Acetaminophen) 1 Each Tablet 2 Tab PO PRN Q4-6HRS PRN MDD 1 [Percogesic] 1 Tab PO Q6-8HRS PRN Clopidogrel (Clopidogrel Bisulfate) 75 Mg Tablet 75 Mg PO DAILYWBKFT Ondansetron Odt (Ondansetron) 4 Mg Tab.rapdis 1 Tab PO PRN Q6-8HRS Proair Hfa Inhaler (Albuterol Sulfate) 8.5 Gm Hfa.aer.ad 1 Puff INH PRN Q6HRS PRN Amaryl (Glimepiride) 2 Mg Tablet 2 Mg PO DAILY 30 Days Reported Docusate Sodium 100 Mg Capsule 1 Cap PO BID Metoprolol Tartrate 25 Mg Tablet 25 Mg PO BID Capsaicin 60 Gm Cream..g. 60 Gm TP PRN TID apply to morgan feet Calcium 500 + Vit D 200 Caplet (Calcium Carbonate/Vitamin D3) 1 Each Tablet 1 Each PO DAILY Zolpidem Tartrate 5 Mg Tablet 5 Mg PO QHS Clonazepam (Clonazepam) 0.5 Mg Tablet 0.5 Mg PO TID Fluoxetine Hcl 20 Mg Capsule 1 Cap PO DAILY Famotidine 20 Mg Tablet 20 Mg PO BID Furosemide 80 Mg Tablet 80 Mg PO BID Albuterol Sulfate Conc Neb Soln (Albuterol Sulfate) 2.5 Mg/0.5 Ml Vial.neb 5 Mg NEB PRN PRN NITROGLYCERIN SubLingual (Nitroglycerin) 0.4 Mg Tab.subl 0.4 Mg SL PRN Q5MIN PRN Atorvastatin Calcium 20 Mg Tablet 20 Mg PO HS Aspir 81 (Aspirin) 81 Mg Tablet. 1 Tab PO DAILY Vitals/I & O Vital Sign - Last 24 Hours 01/27/19 01/27/19 01/27/19 01/27/19 16:38 17:08 17:43 17:49 Temp 98.5 98.5 Pulse 87 81 82 Resp 17 B/P (MAP) 166/89 (114) 185/79 (114) 180/77 (111) Pulse Ox 96 94 94 96 O2 Delivery Room Air Nasal Cannula Nasal Cannula O2 Flow Rate 2.0 2.0 01/27/19 01/27/19 01/27/19 01/27/19 18:08 18:19 18:38 18:56 Pulse 76 67 85 B/P (MAP) 199/88 (125) 202/77 (118) 202/77 Pulse Ox 98 96 100 O2 Delivery Nasal Cannula Nasal Cannula O2 Flow Rate 2.0 2.0 01/27/19 01/27/19 01/27/19 01/27/19 19:00 19:03 19:09 19:38 Pulse 74 70 75 B/P (MAP) 170/65 (100) 170/65 176/75 (108) Pulse Ox 99 96 99 O2 Delivery Nasal Cannula Nasal Cannula O2 Flow Rate 2.0 2.0 01/27/19 01/27/19 01/27/19 01/27/19 20:08 20:38 21:08 21:35 Pulse 65 63 60 B/P (MAP) 181/74 (109) 176/76 (109) 167/72 (103) Pulse Ox 98 98 98 O2 Delivery Nasal Cannula Nasal Cannula Nasal Cannula Nasal Cannula O2 Flow Rate 2.0 2.0 2.0 2.0 01/27/19 01/27/19 01/27/19 01/27/19 21:45 21:47 22:45 23:00 Temp 98.5 98.5 Pulse 63 60 Resp 16 16 20 B/P (MAP) 176/76 126/40 (68) Pulse Ox 98 97 O2 Delivery Nasal Cannula O2 Flow Rate 2.0 2.0 01/28/19 01/28/19 01/28/19 01/28/19 02:58 03:42 03:58 07:15 Temp 98.1 97.6 98.1 97.6 Pulse 58 60 Resp 16 18 16 20 B/P (MAP) 135/45 (75) 134/68 (90) Pulse Ox 97 96 96 99 O2 Delivery Nasal Cannula Nasal Cannula O2 Flow Rate 2.0 2.0 2.0 2.0 01/28/19 01/28/19 01/28/19 01/28/19 07:51 08:00 08:55 08:58 Pulse 60 Resp 19 19 B/P (MAP) 134/68 Pulse Ox 96 96 O2 Delivery Nasal Cannula Nasal Cannula Nasal Cannula O2 Flow Rate 2.0 2.0 2.0 01/28/19 11:07 Temp 98.1 98.1 Pulse 60 Resp 18 B/P (MAP) 123/59 (80) Pulse Ox 98 O2 Delivery Nasal Cannula O2 Flow Rate 2.0 Intake and Output 01/27/19 01/27/19 01/28/19 15:00 23:00 07:00 Intake Total 500 ml Balance 500 ml LÓPEZ BARRIOS MD Jan 28, 2019 12:34
--- NOTE | 2019-01-28 12:45 | PDOC2 ---
FAHADGABRIELLA SIMEON PAULINE 01/28/19 1245: CARDIAC CONSULT DATE OF CONSULT Date of Consult DATE: 01/28/19 TIME: 12:34 REASON FOR CONSULT Reason for Consult: Chest pain REFERRING PHYSICIAN Referring Physician: Celine Cevallos APRN SOURCE Source: Chart review, Patient HISTORY OF PRESENT ILLNESS HISTORY OF PRESENT ILLNESS This is a 64 yo female who presented secondary to right sided chest pain. Patient reports pain began on Friday. Located in her right chest. Describes as stabbing, aching in nature. No associated shortness of breath, palpitations, dizziness, or diphoresis. Took ASA and nitro without any improvement. Had episode of nausea/vomiting yesterday so she decided to come to the ED for further evaluation and treatment. PAST MEDICAL HISTORY Past Medical History Cardiovascular: CAD, CHF, HTN, NC, Hyperlipidemia, Other Pulmonary: Bronchitis, COPD CENTRAL NERVOUS SYSTEM: Periperal neuropathy GI: GERD Heme/Onc: No pertinent hx Hepatobiliary: Cholelithiasis Psych: No pertinent hx Musculoskeletal: Osteoarthritis, Weakness Rheumatologic: No pertinent hx Infectious disease: No pertinent hx Renal/: Chronic renal insuff Endocrine: Diabetes PAST SURGICAL HISTORY Past Surgical History Pacemaker, Appendectomy, Cholecystectomy, Total knee replacement, Hysterectomy FAMILY HISTORY Family History: Heart Disease SOCIAL HISTORY Social History Social History:<1 pack per day ALCOHOL: none Drugs: None, Marijuana Lives: with Family CURRENT MEDICATIONS CURRENT MEDICATIONS Current Medications Medications (Trade) Dose Ordered Sig/Susan Route PRN Reason Start Time Stop Time Status Last Admin Dose Admin Aspirin (Jahaira Aspirin) 325 mg 1X ONCE PO 01/27/19 17:00 01/27/19 17:01 DC 01/27/19 17:49 Nitroglycerin (Nitrostat) 0.4 mg PRN Q5MIN PRN SL CP RATING > 1/10 01/27/19 17:00 01/28/19 16:59 01/27/19 19:03 Morphine Sulfate (Morphine Sulfate) 4 mg PRN Q15MIN PRN IV/SQ PAIN GREATER THAN 3/10 01/27/19 17:00 01/28/19 16:59 01/27/19 19:09 Ondansetron HCl (Zofran) 4 mg 1X ONCE IV 01/27/19 18:00 01/27/19 18:01 DC 01/27/19 17:52 Aspirin (Ecotrin) 81 mg DAILY PO 01/28/19 09:00 01/28/19 08:58 Atorvastatin Calcium (Lipitor) 20 mg HS PO 01/27/19 21:00 01/27/19 21:45 Calcium/Vitamin D (Oscal D 500mg/ 200uts) 1 tab DAILY PO 01/28/19 09:00 01/28/19 08:58 Clonazepam (KlonoPIN) 0.5 mg TID PO 01/27/19 21:00 01/28/19 08:59 Clopidogrel Bisulfate (Plavix) 75 mg DAILYWBKFT PO 01/28/19 08:00 01/28/19 08:58 Docusate Sodium (Colace) 100 mg BID PO 01/27/19 21:00 01/28/19 08:58 Famotidine (Pepcid) 20 mg BID PO 01/27/19 21:00 01/28/19 08:58 Furosemide (Lasix) 80 mg BID94 PO 01/28/19 09:00 01/28/19 08:58 Glimepiride (Amaryl) 2 mg DAILY PO 01/28/19 09:00 01/28/19 09:01 Metoprolol Tartrate (Lopressor) 25 mg BID PO 01/27/19 21:00 01/28/19 08:58 Oxycodone/ Acetaminophen (Percocet 10/325) 2 tab PRN Q4HRS PRN PO PAIN 01/27/19 19:00 01/28/19 07:51 Zolpidem Tartrate (Ambien) 5 mg QHS PO 01/27/19 21:00 01/27/19 21:45 ALLERGIES ALLERGIES: Coded Allergies: No Known Medication Allergies (Verified Allergy, Unknown, 01/13/19) ibuprofen (Verified Adverse Reaction, Intermediate, Nausea and Vomiting, 12/02/17) ROS Review of System 14 point ROS conducted with pertinent positives noted above in HPI PHYSICAL EXAM PHYSICAL EXAM General: Alert, Oriented X3, Cooperative, No acute distress HEENT: Atraumatic, Mucous membr. moist/pink Lungs: Clear to auscultation, Normal air movement. Right chest tenderness upon palpitation. Heart: Regular rate (SR), Normal S1, Normal S2, No murmurs Abdomen: Soft, No tenderness Extremities: No cyanosis, No edema Skin: No breakdown, No significant lesion Neuro: Normal speech, Sensation intact Psych/Mental Status: Mental status NL, Mood NL MUSCULOSKELETAL: Osteoarthritic changes both hands VITALS/I&O VITALS/I&O: Vital Signs Date Time Temp Pulse Resp B/P (MAP) Pulse Ox O2 Delivery O2 Flow Rate FiO2 01/28/19 11:07 98.1 60 18 123/59 (80) 98 Nasal Cannula 2.0 98.1 I & O 01/27/19 01/27/19 01/28/19 15:00 23:00 07:00 Intake Total 500 ml Balance 500 ml LABS Lab: Laboratory Tests Test 01/27/19 17:15 01/27/19 18:40 01/27/19 18:54 01/27/19 22:07 Sodium Level 140 mmol/L (136-145) Potassium Level 3.4 mmol/L (3.5-5.1) L Chloride Level 98 mmol/L (98-107) Carbon Dioxide Level 32 mmol/L (21-32) Anion Gap 10 (6-14) Blood Urea Nitrogen 8 mg/dL (7-20) Creatinine 0.8 mg/dL (0.6-1.0) Estimated GFR (Cockcroft-Gault) 87.1 BUN/Creatinine Ratio 10 (6-20) Glucose Level 138 mg/dL (70-99) H Calcium Level 10.3 mg/dL (8.5-10.1) H Magnesium Level 2.2 mg/dL (1.8-2.4) Total Bilirubin 0.7 mg/dL (0.2-1.0) Aspartate Amino Transferase (AST) 14 U/L (15-37) L Alanine Aminotransferase (ALT) 13 U/L (14-59) L Alkaline Phosphatase 92 U/L (46-116) Creatine Kinase 54 U/L (26-192) Creatine Kinase MB (Mass) 0.5 ng/mL (0.0-3.6) Creatine Kinase MB Relative Index % (0-4) Troponin I Quantitative < 0.017 ng/mL (0.000-0.055) YZ-Llt-[id number]-Type Natriuretic Peptide 3968 pg/mL (0-124) H Total Protein 8.8 g/dL (6.4-8.2) H Albumin 3.5 g/dL (3.4-5.0) Albumin/Globulin Ratio 0.7 (1.0-1.7) L Thyroid Stimulating Hormone (TSH) 0.205 uIU/mL (0.358-3.74) L White Blood Count 8.1 x10^3/uL (4.0-11.0) Red Blood Count 4.24 x10^6/uL (3.50-5.40) Hemoglobin 10.4 g/dL (12.0-15.5) L Hematocrit 33.2 % (36.0-47.0) L Mean Corpuscular Volume 78 fL (79-100) L Mean Corpuscular Hemoglobin 25 pg (25-35) Mean Corpuscular Hemoglobin Concent 31 g/dL (31-37) Red Cell Distribution Width 17.4 % (11.5-14.5) H Platelet Count 350 x10^3/uL (140-400) Neutrophils (%) (Auto) 78 % (31-73) H Lymphocytes (%) (Auto) 13 % (24-48) L Monocytes (%) (Auto) 8 % (0-9) Eosinophils (%) (Auto) 0 % (0-3) Basophils (%) (Auto) 1 % (0-3) Neutrophils # (Auto) 6.3 x10^3/uL (1.8-7.7) Lymphocytes # (Auto) 1.0 x10^3/uL (1.0-4.8) Monocytes # (Auto) 0.7 x10^3/uL (0.0-1.1) Eosinophils # (Auto) 0.0 x10^3/uL (0.0-0.7) Basophils # (Auto) 0.1 x10^3/uL (0.0-0.2) Urine Collection Type Unknown Urine Color Yellow Urine Clarity Clear Urine pH 8.0 Urine Specific [place] 1.015 Urine Protein 30 mg/dL (NEG-TRACE) Urine Glucose (UA) Negative mg/dL (NEG) Urine Ketones (Stick) Negative mg/dL (NEG) Urine Blood Negative (NEG) Urine Nitrite Negative (NEG) Urine Bilirubin Negative (NEG) Urine Urobilinogen Dipstick 2.0 mg/dL (0.2 mg/dL) Urine Leukocyte Esterase Negative (NEG) Urine RBC Rare /HPF (0-2) Urine WBC 1-4 /HPF (0-4) Urine Squamous Epithelial Cells Mod /LPF Urine Bacteria Mod /HPF (0-FEW) Urine Mucus Slight /LPF Urine Opiates Screen Pos (NEG) Urine Methadone Screen Neg (NEG) Urine Barbiturates Neg (NEG) Urine Phencyclidine Screen Neg (NEG) Urine Amphetamine/Methamphetamine Neg (NEG) Urine Benzodiazepines Screen Neg (NEG) Urine Cocaine Screen Neg (NEG) Urine Cannabinoids Screen Pos (NEG) Urine Ethyl Alcohol Neg (NEG) Glucose (Fingerstick) 93 mg/dL (70-99) Test 01/27/19 23:58 01/28/19 04:06 01/28/19 07:11 01/28/19 11:29 Troponin I Quantitative < 0.017 ng/mL (0.000-0.055) < 0.017 ng/mL (0.000-0.055) White Blood Count 8.1 x10^3/uL (4.0-11.0) Red Blood Count 4.11 x10^6/uL (3.50-5.40) Hemoglobin 10.3 g/dL (12.0-15.5) L Hematocrit 32.3 % (36.0-47.0) L Mean Corpuscular Volume 79 fL (79-100) Mean Corpuscular Hemoglobin 25 pg (25-35) Mean Corpuscular Hemoglobin Concent 32 g/dL (31-37) Red Cell Distribution Width 17.2 % (11.5-14.5) H Platelet Count 363 x10^3/uL (140-400) Neutrophils (%) (Auto) 70 % (31-73) Lymphocytes (%) (Auto) 19 % (24-48) L Monocytes (%) (Auto) 10 % (0-9) H Eosinophils (%) (Auto) 1 % (0-3) Basophils (%) (Auto) 0 % (0-3) Neutrophils # (Auto) 5.6 x10^3/uL (1.8-7.7) Lymphocytes # (Auto) 1.5 x10^3/uL (1.0-4.8) Monocytes # (Auto) 0.8 x10^3/uL (0.0-1.1) Eosinophils # (Auto) 0.1 x10^3/uL (0.0-0.7) Basophils # (Auto) 0.0 x10^3/uL (0.0-0.2) Glucose (Fingerstick) 100 mg/dL (70-99) H 105 mg/dL (70-99) H Laboratory Tests 01/27/19 18:40 01/28/19 04:06 Laboratory Tests 01/27/19 17:15 ECHOCARDIOGRAM ECHOCARDIOGRAM <Conclusion> Technically very difficult study. Endocardial definition not good despite using Optison echo contrast. Left ventricle systolic function appears normal. The Ejection Fraction is 50-55%. Trace mitral regurgitation. Trace tricuspid regurgitation. The PA pressure was estimated at 36 mmHg. There is no evidence of significant pericardial effusion. DATE: 11/06/18 1444 HEART CATH HEART CATH Conclusion 1. 40% stenosis involving the obtuse marginal branch of left circumflex artery without any other significant stenoses. The left internal mammary artery graft to the left anterior descending artery and the saphenous vein graft to the obtuse marginal branch were patent. Of note, patient seems to have had CABG for thrombus in left main coronary artery and left anterior descending artery in the past. No lesions were noted because the thrombus resolved. 2. Akinetic distal anterior wall and the entire apical wall with ejection fraction estimated at 40%. Recommendations Medical Therapy DATE: 05/18/18 1225 ASSESSMENT/PLAN ASSESSMENT/PLAN 1. Chest pain, atypical. AMI ruled out. most probably MSK in origin. 2. CAD s/p CABG. Recent cardiac catheterization noted above without any lesions needing intervention. Recent echo with preserved LV systolic function 4. Hypertension; controlled 4. Chronic diastolic CHF; clinically compensated 5. SSS/PPM in situ 6. Hyperlipidemia; statin therapy 7. Diabetes, II; as per PCP Recommendations Continue with secondary prevention measures including DAPT No further cardiac workup warranted at this time' May discharge from a CV standpoint and f/u in our office with Dr. Huffman as scheduled IMSBAH HUFFMAN MD 01/28/197: CARDIAC CONSULT ASSESSMENT/PLAN ASSESSMENT/PLAN Patient seen and examined. Agree with PAYROLL ANALYST's assessment and plan. CP atypical and most probably musculoskeletal NC ruled out Recent cardiac cath did not show any lesions needing intervention No further cardiac workup is indicated at this time Thank you for your consultation GABRIELLA VÁSQUEZ APRN Jan 28, 2019 12:45 MISBAH HUFFMAN MD Jan 28, 2019 19:17
[2019-01-28] MEDS: CAPSAICIN 0.025% TOPICAL CREAM 60GM TUBE. TP SCH ×2 (14:53→21:04)
--- NOTE | 2019-01-28 16:09 | NUR ---
SW following pt for dc planning. Chart reviewed. Pt live at home and is a readmit. Pt has used [facility] in the past but was discharged with self care on previous admission. SW will be available for needs.
[2019-01-28] MEDS: ATORVASTATIN CALCIUM 20 MG TABLET PO SCH (21:05)
[2019-01-28] MEDS: ZOLPIDEM 5 MG TABLET. PO SCH (21:05)
[2019-01-29 03:00] VITALS: BP 151/52
[2019-01-29] MEDS: oxyCODONE/APAP 10/325 1 TAB TABLET PO PRN ×3 (06:42→16:36)
[2019-01-29 07:00] VITALS: BP 121/46
[2019-01-29] MEDS ORDERED: OXYC1TAB22 PO (08:57)
[2019-01-29] MEDS ORDERED: FERR325T14 PO (08:57)
[2019-01-29] MEDS ORDERED: PANT40TA77 PO (08:57)
[2019-01-29] MEDS: CAPSAICIN 0.025% TOPICAL CREAM 60GM TUBE. TP SCH ×2 (09:00→14:00)
[2019-01-29] MEDS: METOPROLOL TART IMMED RELEASE 25 MG TABLET. PO SCH (09:32)
[2019-01-29] MEDS: clonazePAM 0.5 MG TABLET PO SCH ×2 (09:32→15:28)
[2019-01-29] MEDS: CLOPIDOGREL BISULFATE 75 MG TABLET PO SCH (09:32)
[2019-01-29] MEDS: CALCIUM CARB/VIT D3 500/200 TABLET. PO SCH (09:33)
[2019-01-29] MEDS: GLIMEPIRIDE 2 MG TABLET. PO SCH (09:33)
[2019-01-29] MEDS: ASPIRIN ENTERIC COATED 81 MG TABLET.DR. PO SCH (09:33)
[2019-01-29] MEDS: DOCUSATE SODIUM 100 MG CAPSULE. PO SCH (09:33)
[2019-01-29] MEDS: FAMOTIDINE 20 MG TABLET. PO SCH (09:33)
[2019-01-29] MEDS: FUROSEMIDE 80 MG TABLET. PO SCH ×2 (09:33→15:27)
[2019-01-29 11:00] VITALS: BP 138/59
--- NOTE | 2019-01-29 11:23 | PDOC3 ---
Discharge Summary Visit Information Date of Admission: Jan 27, 2019 Date of Discharge: Jan 29, 2019 Admitting Diagnosis Comment: GERD\ Non cardiac CP MSK pain Hiatal hernia hx MOrbid OBesity Diastiolic HF chronic stable COPD stable NArc dependent/tolerant Final Diagnosis Problems Medical Problems: (1) Chest pain Status: Acute Brief Hospital Course Allergies Allergies Coded Allergies Type Severity Reaction Last Updated Verified No Known Medication Allergies Allergy Unknown 01/13/19 Yes ibuprofen Adverse Reaction Intermediate Nausea and Vomiting 12/02/17 Yes Vital Signs Vital Signs Date Time Temp Pulse Resp B/P (MAP) Pulse Ox O2 Delivery O2 Flow Rate FiO2 01/29/19 09:32 60 121/46 01/29/19 08:00 Nasal Cannula 2.0 01/29/19 07:00 98.0 16 95 98.0 Lab Results Laboratory Tests Test 01/27/19 17:15 01/27/19 18:40 01/27/19 18:54 01/27/19 22:07 Sodium Level 140 mmol/L (136-145) Potassium Level 3.4 mmol/L (3.5-5.1) Chloride Level 98 mmol/L (98-107) Carbon Dioxide Level 32 mmol/L (21-32) Anion Gap 10 (6-14) Blood Urea Nitrogen 8 mg/dL (7-20) Creatinine 0.8 mg/dL (0.6-1.0) Estimated GFR (Cockcroft-Gault) 87.1 BUN/Creatinine Ratio 10 (6-20) Glucose Level 138 mg/dL (70-99) Calcium Level 10.3 mg/dL (8.5-10.1) Magnesium Level 2.2 mg/dL (1.8-2.4) Total Bilirubin 0.7 mg/dL (0.2-1.0) Aspartate Amino Transf (AST/SGOT) 14 U/L (15-37) Alanine Aminotransferase (ALT/SGPT) 13 U/L (14-59) Alkaline Phosphatase 92 U/L (46-116) Creatine Kinase 54 U/L (26-192) Creatine Kinase MB (Mass) 0.5 ng/mL (0.0-3.6) Creatine Kinase MB Relative Index % (0-4) Troponin I Quantitative < 0.017 ng/mL (0.000-0.055) WN-Qzc-[id number]-Type Natriuretic Peptide 3968 pg/mL (0-124) Total Protein 8.8 g/dL (6.4-8.2) Albumin 3.5 g/dL (3.4-5.0) Albumin/Globulin Ratio 0.7 (1.0-1.7) Thyroid Stimulating Hormone (TSH) 0.205 uIU/mL (0.358-3.74) White Blood Count 8.1 x10^3/uL (4.0-11.0) Red Blood Count 4.24 x10^6/uL (3.50-5.40) Hemoglobin 10.4 g/dL (12.0-15.5) Hematocrit 33.2 % (36.0-47.0) Mean Corpuscular Volume 78 fL (79-100) Mean Corpuscular Hemoglobin 25 pg (25-35) Mean Corpuscular Hemoglobin Concent 31 g/dL (31-37) Red Cell Distribution Width 17.4 % (11.5-14.5) Platelet Count 350 x10^3/uL (140-400) Neutrophils (%) (Auto) 78 % (31-73) Lymphocytes (%) (Auto) 13 % (24-48) Monocytes (%) (Auto) 8 % (0-9) Eosinophils (%) (Auto) 0 % (0-3) Basophils (%) (Auto) 1 % (0-3) Neutrophils # (Auto) 6.3 x10^3/uL (1.8-7.7) Lymphocytes # (Auto) 1.0 x10^3/uL (1.0-4.8) Monocytes # (Auto) 0.7 x10^3/uL (0.0-1.1) Eosinophils # (Auto) 0.0 x10^3/uL (0.0-0.7) Basophils # (Auto) 0.1 x10^3/uL (0.0-0.2) Urine Collection Type Unknown Urine Color Yellow Urine Clarity Clear Urine pH 8.0 Urine Specific [place] 1.015 Urine Protein 30 mg/dL (NEG-TRACE) Urine Glucose (UA) Negative mg/dL (NEG) Urine Ketones (Stick) Negative mg/dL (NEG) Urine Blood Negative (NEG) Urine Nitrite Negative (NEG) Urine Bilirubin Negative (NEG) Urine Urobilinogen Dipstick 2.0 mg/dL (0.2 mg/dL) Urine Leukocyte Esterase Negative (NEG) Urine RBC Rare /HPF (0-2) Urine WBC 1-4 /HPF (0-4) Urine Squamous Epithelial Cells Mod /LPF Urine Bacteria Mod /HPF (0-FEW) Urine Mucus Slight /LPF Urine Opiates Screen Pos (NEG) Urine Methadone Screen Neg (NEG) Urine Barbiturates Neg (NEG) Urine Phencyclidine Screen Neg (NEG) Urine Amphetamine/Methamphetamine Neg (NEG) Urine Benzodiazepines Screen Neg (NEG) Urine Cocaine Screen Neg (NEG) Urine Cannabinoids Screen Pos (NEG) Urine Ethyl Alcohol Neg (NEG) Glucose (Fingerstick) 93 mg/dL (70-99) Test 01/27/19 23:58 01/28/19 04:06 01/28/19 07:11 01/28/19 11:29 Troponin I Quantitative < 0.017 ng/mL (0.000-0.055) < 0.017 ng/mL (0.000-0.055) White Blood Count 8.1 x10^3/uL (4.0-11.0) Red Blood Count 4.11 x10^6/uL (3.50-5.40) Hemoglobin 10.3 g/dL (12.0-15.5) Hematocrit 32.3 % (36.0-47.0) Mean Corpuscular Volume 79 fL (79-100) Mean Corpuscular Hemoglobin 25 pg (25-35) Mean Corpuscular Hemoglobin Concent 32 g/dL (31-37) Red Cell Distribution Width 17.2 % (11.5-14.5) Platelet Count 363 x10^3/uL (140-400) Neutrophils (%) (Auto) 70 % (31-73) Lymphocytes (%) (Auto) 19 % (24-48) Monocytes (%) (Auto) 10 % (0-9) Eosinophils (%) (Auto) 1 % (0-3) Basophils (%) (Auto) 0 % (0-3) Neutrophils # (Auto) 5.6 x10^3/uL (1.8-7.7) Lymphocytes # (Auto) 1.5 x10^3/uL (1.0-4.8) Monocytes # (Auto) 0.8 x10^3/uL (0.0-1.1) Eosinophils # (Auto) 0.1 x10^3/uL (0.0-0.7) Basophils # (Auto) 0.0 x10^3/uL (0.0-0.2) Glucose (Fingerstick) 100 mg/dL (70-99) 105 mg/dL (70-99) Test 01/28/19 16:43 01/28/19 20:32 01/29/19 07:30 Glucose (Fingerstick) 136 mg/dL (70-99) 104 mg/dL (70-99) 166 mg/dL (70-99) Laboratory Tests Test 01/28/19 11:29 01/28/19 16:43 01/28/19 20:32 01/29/19 07:30 Glucose (Fingerstick) 105 mg/dL (70-99) 136 mg/dL (70-99) 104 mg/dL (70-99) 166 mg/dL (70-99) Brief Hospital Course Ms. Laguna is a 64 old [sex] who presented with [ ] Assessment Assessment I admitted 01/13 for the same, consulted gI (hx of hernia, long times since checked). and was being set up for OP scopes by GI, Her CHEST PAIN IS NON CARDIAC (we should stop consulting cards everytime she gets admitted)- she had L HC etc that proved this, THen, she gets admitted 01/27 for CP and cards consulted again and they have nothing more to offer her I read my Jan 13 admission (to see what happened) and GI had plans for her. I RE ITERATED THIS TO PATIENT AND SHE SHOULD JUST WAIT AT HOME FOR THE PHONE CALL FROM GI FOR THE OP SCOPES SHE asks why not inpt? I told her her sxs does not qualify URGENT scopes Rx on chart Severino garcia for NON CARDIAC CHEST PAIN Pls do not consult cards anymore for future admissions, unless a change in work up dc 34 mins pt seen and examined Discharge Information Condition at Discharge: Improved, Stable Disposition/Orders: D/C to Home Scheduled Aspirin (Aspir 81) 81 Mg Tablet., 1 TAB PO DAILY, #30 Ref 5 (Reported) Entered as Reported by: FIFI WALSH on 10/28/16 1058 Last Action: Continued on 01/27/191858 by LÓPEZ BARRIOS Atorvastatin Calcium (Atorvastatin Calcium) 20 Mg Tablet, 20 MG PO HS for FOR CHOLESTEROL, #30 Ref 0 (Reported) Entered as Reported by: FIFI WALSH on 10/28/16 1108 Last Action: Continued on 01/27/191858 by LÓPEZ BARRIOS Calcium Carbonate/Vitamin D3 (Calcium 500 + Vit D 200 Caplet) 1 Each Tablet, 1 EACH PO DAILY for supplement, (Reported) Entered as Reported by: KENNEY YANG on 05/16/182321 Last Action: Continued on 01/27/191858 by LÓPEZ BARRIOS Capsaicin (Capsaicin) 60 Gm Cream..g., 60 GM TP PRN TID for , (Reported) apply to morgan feet Entered as Reported by: Tiffany Dodson on 07/14/182110 Last Action: Continued on 01/27/191858 by LÓPEZ BARRIOS Clonazepam (Clonazepam ) 0.5 Mg Tablet, 0.5 MG PO TID for anti-anxiety, (Reported) Entered as Reported by: KENNEY YANG on 05/16/182321 Last Action: Continued on 01/27/191858 by LÓPEZ BARRIOS Clopidogrel Bisulfate (Clopidogrel) 75 Mg Tablet, 75 MG PO DAILYWBKFT for heart protection, #30 Prescribed by: LÓPEZ BARRIOS on 11/07/18 1217 Last Action: Continued on 01/27/191858 by LÓPEZ BARRIOS Docusate Sodium (Docusate Sodium) 100 Mg Capsule, 1 CAP PO BID for constipation, #14 (Reported) Entered as Reported by: MAGDI NUNEZ RN on 12/05/18 0116 Last Action: Continued on 01/27/191858 by LÓPEZ BARRIOS Ferrous Sulfate (Ferrous Sulfate) 325 Mg Tablet, 325 MG PO DAILY for ROXANE for 60 Days, #60 Prescribed by: CATHIE KNIGHT on 01/29/19 0857 Fluoxetine Hcl (Fluoxetine Hcl) 20 Mg Capsule, 1 CAP PO DAILY for anti- depressent, #90 Ref 1 (Reported) Entered as Reported by: KENNEY YANG on 05/16/182321 Furosemide (Furosemide) 80 Mg Tablet, 80 MG PO BID for heart, (Reported) Entered as Reported by: NAM MORTENSEN on 10/09/17 1408 Last Action: Continued on 01/27/191858 by LÓPEZ BARRIOS Glimepiride (Amaryl) 2 Mg Tablet, 2 MG PO DAILY for 30 Days, #30 Prescribed by: RADHA PIERRE MD on 07/04/17 1010 Last Action: Continued on 01/27/191858 by LÓPEZ BARRIOS Metoprolol Tartrate (Metoprolol Tartrate) 25 Mg Tablet, 25 MG PO BID for FOR HYPERTENSION, #60 Ref 0 (Reported) Entered as Reported by: JOVANNY MORALES on 08/30/18 2320 Last Action: Continued on 01/27/191858 by LÓPEZ BARRIOS Ondansetron (Ondansetron Odt) 4 Mg Tab.rapdis, 1 TAB PO PRN Q6-8HRS, #16 Prescribed by: Celine Cevallos APRN on 08/13/182105 Last Action: Continued on 01/27/191858 by LÓPEZ BARRIOS Pantoprazole Sodium (Protonix ) 40 Mg Tablet.dr, 40 MG PO DAILYAC for GERD for 60 Days, #60 Prescribed by: CATHIE KNIGHT on 01/29/19 0857 Zolpidem Tartrate (Zolpidem Tartrate) 5 Mg Tablet, 5 MG PO QHS for insomnia, Ref 0 (Reported) Entered as Reported by: KENNEY YANG on 05/16/182321 Last Action: Continued on 01/27/191858 by LÓPEZ BARRIOS Scheduled PRN Albuterol Sulfate (Albuterol Sulfate Conc Neb Soln) 2.5 Mg/0.5 Ml Vial.neb, 5 MG NEB PRN PRN for WHEEZING, Ref 0 (Reported) Entered as Reported by: ROMY PHELAN on 10/07/172035 Last Action: Converted on 01/27/191858 by LÓPEZ BARRIOS Albuterol Sulfate (Proair Hfa Inhaler) 8.5 Gm Hfa.aer.ad, 1 PUFF INH PRN Q6HRS PRN for SHORTNESS OF BREATH, #1 Ref 0 Prescribed by: MILLER ORTIZ MD on 06/21/18 1711 Last Action: Continued on 01/27/191858 by LÓPEZ BARRIOS Nitroglycerin (NITROGLYCERIN SubLingual) 0.4 Mg Tab.subl, 0.4 MG SL PRN Q5MIN PRN for CHEST PAIN, (Reported) Entered as Reported by: LOYDA CELAYA RN on 11/01/16 0013 Oxycodone/Apap 10-325 (Percocet 10-325 Mg Tablet ) 1 Each Tablet, 2 TAB PO PRN Q4-6HRS PRN for PAIN MDD 1, #20 Ref 0 Prescribed by: CATHIE KNIGHT on 01/29/19 0857 [Percogesic] , 1 TAB PO Q6-8HRS PRN for PAIN, #14 Prescribed by: JO-ANN BLOUNT MD on 12/10/18 1516 Last Action: Converted on 01/27/191858 by LÓPEZ BARRIOS Discontinued Medications Famotidine (Famotidine) 20 Mg Tablet, 20 MG PO BID for stomach acid, (Reported) Entered as Reported by: KENNEY YANG on 05/16/182 Last Action: Continued on 01/27/191858 by CATHIE CARRASCO MD Jan 29, 2019 11:23
[2019-01-29 15:00] VITALS: BP 139/45
--- NOTE | 2019-01-29 16:30 | NUR ---
DISCHARGE INSTRUCTIONS GIVEN TO THE PATIENT, QUESTIONS AND CONCERNS ANSWERED, PATIENT VERBALIZED UNDERSTANDING OF DISCHARGE INFORMATION INCLUDING TAKING ALL MEDICATIONS INSTRUCTED AND FOLLOWING WITH HER PRIMARY PROVIDER AND DR. SPAIN INSTRUCTED.
--- NOTE | 2019-01-29 17:00 | NUR ---
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
[2019-02-03] MEDS ORDERED: LOSA100T14 PO (17:03)
[2019-02-03] MEDS ORDERED: CALC500T31 PO (17:03)
[2019-02-03] MEDS ORDERED: AMLO5TAB10 PO (17:03)
== END 2019-01-29 17:00 | disposition home or self-care (01) | DRG 313 ==
LOC: ER 16:26 → ED HOLD 20:12 → 6 SOUTH 21:22 → 5 SOUTH 01-29 00:50
PROVIDERS: ADMIT Internal Medicine; ATTEND Internal Medicine
DX: R07.89 Other chest pain (principal); I50.32 Chronic diastolic (congestive) heart failure; I13.0 Hypertensive heart and chronic kidney disease with heart failure and stage 1 through stage 4 chronic kidney disease, or unspecified chronic kidney disease; K59.00 Constipation, unspecified; Z68.39 Body mass index [BMI] 39.0-39.9, adult; E66.01 Morbid (severe) obesity due to excess calories; E11.22 Type 2 diabetes mellitus with diabetic chronic kidney disease; E78.5 Hyperlipidemia, unspecified; G47.00 Insomnia, unspecified; G47.33 Obstructive sleep apnea (adult) (pediatric); I25.2 Old myocardial infarction; J44.9 Chronic obstructive pulmonary disease, unspecified; K21.9 Gastro-esophageal reflux disease without esophagitis; N18.9 Chronic kidney disease, unspecified; Z79.82 Long term (current) use of aspirin; Z95.0 Presence of cardiac pacemaker; Z79.84 Long term (current) use of oral hypoglycemic drugs; Z79.899 Other long term (current) drug therapy; Z90.710 Acquired absence of both cervix and uterus; Z95.1 Presence of aortocoronary bypass graft; Z96.659 Presence of unspecified artificial knee joint; G89.29 Other chronic pain; I25.10 Atherosclerotic heart disease of native coronary artery without angina pectoris; M19.90 Unspecified osteoarthritis, unspecified site; Z68.38 Body mass index [BMI] 38.0-38.9, adult
CPT/HCPCS: 36415; 71045; 80053; 80307; 81001; 82553; 82962; 83735; 83880; 84443; 84484; 85025; 93005; 94640; 94760; 96374; 96375; 96376; J2270; J2405; 99285-25; G0378

== ENCOUNTER 2019-01-30 18:39 | Inpatient (IN) | payer OTHER ==
[~2019-01-30] VITALS: Ht 162.6 cm; Wt 104.9 kg
[~2019-01-30 18:39] MED LIST changes: +PANT40TA77 PO
[2019-01-30] MEDS ORDERED: HEPARIN for IV BOLUS 10,000 UNIT/10 ML VIAL. IV PRN (19:00)
[2019-01-30] MEDS ORDERED: HEPARIN for IV BOLUS 10,000 UNIT/10 ML VIAL. IV ONE (19:00)
--- NOTE | 2019-01-30 19:02 | PHYS DOC ---
Past Medical History Past Medical History: Diabetes-Type II, Hypertension Additional Past Medical Histor: O2 @3 L PRN, chronic pain, NEUROPATHY Past Surgical History: Cholecystectomy, Hysterectomy Additional Past Surgical Histo: HERNIA REPAIR Alcohol Use: None Drug Use: None Adult General Chief Complaint Chief Complaint: CHEST PAIN [facility] HPI Patient is a 64-year-old female who presents with complaint of chest pain that started this morning at about 8:30 AM. Patient states that pain has been steady throughout the day. She states the pain is in the middle of her chest and r adiates to the right mid chest. She does admit some nausea but has had no vomiting or diaphoresis. She rates pain at a 7 out of 10. She states that initially the pain was not so bad but over the last hour it has gotten worse. Patient does have strong cardiac history. She states that nothing is improving her pain. She does indicate that she took 4 baby aspirin today as well as 2 nitroglycerin without relief. She describes the pain as a dull ache.[] Review of Systems Review of Systems Constitutional: Denies fever or chills [] Respiratory: Denies cough or shortness of breath [] Cardiovascular: No additional information not addressed in HPI [] GI: Denies abdominal pain, vomiting or diarrhea [] Integument: Denies rash or skin lesions [] Neurologic: Denies headache, focal weakness or sensory changes [] All other systems were reviewed and found to be within normal limits, except as documented in this note. Current Medications Current Medications Current Medications Medications (Trade) Dose Ordered Sig/[facility] Start Time Stop Time Status Last Admin Dose Admin Heparin Sodium (Porcine) (Heparin Sodium) 2,650 unit PRN Q6HRS PRN 01/30/19 19:00 Heparin Sodium/ Dextrose 500 ml @ 0 mls/hr CONT PRN 01/30/19 19:00 01/30/19 19:19 20 MLS/HR Morphine Sulfate (Morphine Sulfate) 4 mg 1X ONCE 01/30/19 20:00 01/30/19 20:01 DC 01/30/19 19:32 4 MG Ondansetron HCl (Zofran) 4 mg 1X ONCE 01/30/19 20:00 01/30/19 20:01 DC 01/30/19 19:32 4 MG Allergies Allergies Allergies Coded Allergies Type Severity Reaction Last Updated Verified No Known Medication Allergies Allergy Unknown 01/13/19 Yes ibuprofen Adverse Reaction Intermediate Nausea and Vomiting 12/02/17 Yes Physical Exam Physical Exam Constitutional: Well developed, well nourished, no acute distress, non-toxic appearance. [] HENT: Normocephalic, atraumatic, bilateral external ears normal, oropharynx moist, no oral exudates, nose normal. [] Eyes: PERRLA, EOMI, conjunctiva normal, no discharge. [] Neck: Normal range of motion, no tenderness, supple, no stridor. [] Cardiovascular: Regular rate and rhythm[] Lungs & Thorax: Bilateral breath sounds clear to auscultation [] Abdomen: Bowel sounds normal, soft, no tenderness. [] Skin: Warm, dry, no erythema, no rash. [] Extremities: No tenderness, no cyanosis, no clubbing, ROM intact. [] Neurologic: Alert and oriented X 3, no focal deficits noted. [] Current Patient Data Vital Signs Vital Signs Date Time Temp Pulse Resp B/P (MAP) Pulse Ox O2 Delivery O2 Flow Rate FiO2 01/30/19 19:32 18 96 Room Air 01/30/19 18:39 100.5 90 181/68 (105) 100.5 Lab Values Laboratory Tests Test 01/30/19 19:10 White Blood Count 7.4 x10^3/uL (4.0-11.0) Red Blood Count 4.68 x10^6/uL (3.50-5.40) Hemoglobin 11.3 g/dL (12.0-15.5) L Hematocrit 36.4 % (36.0-47.0) Mean Corpuscular Volume 78 fL (79-100) L Mean Corpuscular Hemoglobin 24 pg (25-35) L Mean Corpuscular Hemoglobin Concent 31 g/dL (31-37) Red Cell Distribution Width 17.3 % (11.5-14.5) H Platelet Count 379 x10^3/uL (140-400) Neutrophils (%) (Auto) 76 % (31-73) H Lymphocytes (%) (Auto) 15 % (24-48) L Monocytes (%) (Auto) 8 % (0-9) Eosinophils (%) (Auto) 0 % (0-3) Basophils (%) (Auto) 0 % (0-3) Neutrophils # (Auto) 5.6 x10^3/uL (1.8-7.7) Lymphocytes # (Auto) 1.1 x10^3/uL (1.0-4.8) Monocytes # (Auto) 0.6 x10^3/uL (0.0-1.1) Eosinophils # (Auto) 0.0 x10^3/uL (0.0-0.7) Basophils # (Auto) 0.0 x10^3/uL (0.0-0.2) Sodium Level 143 mmol/L (136-145) Potassium Level 4.0 mmol/L (3.5-5.1) Chloride Level 100 mmol/L (98-107) Carbon Dioxide Level 35 mmol/L (21-32) H Anion Gap 8 (6-14) Blood Urea Nitrogen 12 mg/dL (7-20) Creatinine 0.8 mg/dL (0.6-1.0) Estimated GFR (Cockcroft-Gault) 87.1 BUN/Creatinine Ratio 15 (6-20) Glucose Level 109 mg/dL (70-99) H Calcium Level 9.9 mg/dL (8.5-10.1) Magnesium Level 2.0 mg/dL (1.8-2.4) Total Bilirubin 0.3 mg/dL (0.2-1.0) Aspartate Amino Transferase (AST) 11 U/L (15-37) L Alanine Aminotransferase (ALT) 13 U/L (14-59) L Alkaline Phosphatase 88 U/L (46-116) Troponin I Quantitative < 0.017 ng/mL (0.000-0.055) HF-Pxa-M-Type Natriuretic Peptide 1332 pg/mL (0-124) H Total Protein 7.6 g/dL (6.4-8.2) Albumin 3.2 g/dL (3.4-5.0) L Albumin/Globulin Ratio 0.7 (1.0-1.7) L Lipase 78 U/L (73-393) Laboratory Tests 01/30/19 19:10 Laboratory Tests 01/30/19 19:10 EKG EKG [] Interpretation Time: EKG demonstrates sinus tachycardia with rate of 101. No significant change in EKG compared to one obtained on January 27 of this year. Radiology/Procedures Radiology/Procedures [] Course & Med Decision Making Course & Med Decision Making Pertinent Labs and Imaging studies reviewed. (See chart for details) [] Dragon Disclaimer Dragon Disclaimer This electronic medical record was generated, in whole or in part, using a voice recognition dictation system. Departure Departure Impression: Primary Impression: Chest pain Disposition: ADMITTED INPATIENT Admitting Physician: MAGNUS (Dr. Moser) Condition: IMPROVED Referrals: JENSEN CUEVAS (PCP) Problem Qualifiers Primary Impression: Chest pain Chest pain type: unspecified Qualified Codes: R07.9 - Chest pain, unspec ified INDERJIT CANALES Jr. DO Jan 30, 2019 19:02
[2019-01-30] MEDS: HEPARIN 25,000UTS/500ML PREMIX 500 ML IV PRN (19:19)
[2019-01-30 19:36] LABS: BASO % 0 % (0-3); EOS % 0 % (0-3); HEMATOCRIT 36.4 % (36.0-47.0); HEMOGLOBIN 11.3 g/dL (12.0-15.5); LYMPH # 1.1 x10^3/uL (1.0-4.8); LYMPH % 15 % (24-48); MEAN CORPUSCULAR HEMOGLOBIN 24 pg (25-35); MEAN CORPUSCULAR HGB CONC 31 g/dL (31-37); MEAN CORPUSCULAR VOLUME 78 fL (79-100); MONO # 0.6 x10^3/uL (0.0-1.1); MONO % 8 % (0-9); NEUT # 5.6 x10^3/uL (1.8-7.7); NEUT % 76 % (31-73); PLATELET COUNT 379 x10^3/uL (140-400); RED BLOOD COUNT 4.68 x10^6/uL (3.50-5.40); RED CELL DISTRIBUTION WIDTH 17.3 % (11.5-14.5); WHITE BLOOD COUNT 7.4 x10^3/uL (4.0-11.0)
[2019-01-30 19:46] LABS: CALCIUM 9.9 mg/dL (8.5-10.1); CREATININE 0.8 mg/dL (0.6-1.0); GFR 87.1
[2019-01-30 19:49] LABS: ALBUMIN 3.2 g/dL (3.4-5.0); ALBUMIN/GLOBULIN RATIO 0.7 (1.0-1.7); TOTAL BILIRUBIN 0.3 mg/dL (0.2-1.0); TOTAL PROTEIN 7.6 g/dL (6.4-8.2)
--- NOTE | 2019-01-30 19:49 | RAD ---
EXAM: AP View of the chest DATE: 01/30/2019 6:40 PM INDICATION: Chest pain COMPARISON: 01/27/2019 FINDINGS/ IMPRESSION: Heart is moderately enlarged. Prominence of pulmonary arterial trunk may be seen with pulmonary hypertension. Changes of median sternotomy are seen. Minimal patchy opacities left lung base likely atelectasis. No pleural effusion or pneumothorax. Electronically signed by: Ej Nevarez MD (01/30/2019 7:46 PM) [facility]
[2019-01-30] MEDS ORDERED: ONDANSETRON PF 4 MG/2 ML VIAL. IV ONE (20:00)
[2019-01-30] MEDS ORDERED: MORPHINE SULFATE 4 MG/ML VIAL. IV ONE ×2 (20:00→21:00)
[2019-01-30] MEDS ORDERED: MORPHINE SULFATE 2 MG/ML VIAL. IV PRN (20:15)
[2019-01-30] MEDS ORDERED: ONDANSETRON PF 4 MG/2 ML VIAL. IV PRN (20:30)
[2019-01-30 20:46] LABS: BILIRUBIN,URINE NEGATIVE (NEG); CLARITY,URINE CLOUDY; COLOR,URINE YELLOW; NITRITE,URINE NEGATIVE (NEG); PROTEIN,URINE NEGATIVE (NEG-TRACE)
[2019-01-30 20:51] LABS: SQUAMOUS EPITHELIAL CELL,UR MOD /LPF
[2019-01-30 20:52] LABS: BACTERIA,URINE FEW /HPF (0-FEW); RBC,URINE OCC /HPF (0-2)
[2019-01-30 20:55] VITALS: BP 173/63
[2019-01-30] MEDS ORDERED: ALBUTEROL SULFATE 2.5 MG/3 ML NEBU. INH PRN (22:00)
[2019-01-30] MEDS ORDERED: CAPSAICIN 0.025% TOPICAL CREAM 60GM TUBE. TP PRN (22:00)
[2019-01-30] MEDS ORDERED: ALBUTEROL SULFATE 5 MG NEB PRN (22:00)
[2019-01-30] MEDS ORDERED: ONDANSETRON ODT 4 MG TAB.RAPDIS. PO PRN (22:00)
[2019-01-30] MEDS ORDERED: NITROGLYCERIN SUBLINGUAL 0.4 MG BOTTLE OF 25. SL PRN (22:00)
[2019-01-30] MEDS ORDERED: ACETAMINOPHEN 325 MG TABLET. PO PRN (22:15)
[2019-01-30] MEDS: METOPROLOL TART IMMED RELEASE 25 MG TABLET. PO SCH (22:17)
[2019-01-30] MEDS: clonazePAM 0.5 MG TABLET PO SCH (22:17)
[2019-01-30] MEDS: DOCUSATE SODIUM 100 MG CAPSULE. PO SCH (22:17)
[2019-01-30] MEDS: ATORVASTATIN CALCIUM 20 MG TABLET PO SCH (22:17)
[2019-01-30] MEDS: ZOLPIDEM 5 MG TABLET. PO SCH (22:17)
[2019-01-30] MEDS: oxyCODONE/APAP 10/325 1 TAB TABLET PO PRN (22:18)
[2019-01-30 23:00] VITALS: BP 118/38
[2019-01-31] MEDS: oxyCODONE/APAP 10/325 1 TAB TABLET PO PRN ×5 (02:34→23:59)
[2019-01-31 03:00] VITALS: BP 135/61
[2019-01-31 03:08] LABS: HEMATOCRIT 33.2 % (36.0-47.0); HEMOGLOBIN 10.4 g/dL (12.0-15.5); RED BLOOD COUNT 4.21 x10^6/uL (3.50-5.40); RED CELL DISTRIBUTION WIDTH 17.4 % (11.5-14.5); WHITE BLOOD COUNT 8.8 x10^3/uL (4.0-11.0)
[2019-01-31 07:33] VITALS: BP 184/73
[2019-01-31] MEDS ORDERED: ANTI-COAG MONITOR BY PHARMACY. MC PRN (08:15)
[2019-01-31] MEDS: METOPROLOL TART IMMED RELEASE 25 MG TABLET. PO SCH ×2 (09:12→20:48)
[2019-01-31] MEDS: FERROUS SULFATE 325 MG TABLET. PO SCH (09:12)
[2019-01-31] MEDS: GLIMEPIRIDE 2 MG TABLET. PO SCH (09:12)
[2019-01-31] MEDS: DOCUSATE SODIUM 100 MG CAPSULE. PO SCH ×2 (09:12→20:47)
[2019-01-31] MEDS: FUROSEMIDE 80 MG TABLET. PO SCH ×2 (09:12→13:58)
[2019-01-31] MEDS: PANTOPRAZOLE 40 MG TABLET.DR. PO SCH (09:12)
[2019-01-31] MEDS: CALCIUM CARB/VIT D3 500/200 TABLET. PO SCH (09:12)
[2019-01-31] MEDS: FLUoxetine HCL 20 MG CAPSULE PO SCH (09:12)
[2019-01-31] MEDS: CLOPIDOGREL BISULFATE 75 MG TABLET PO SCH (09:12)
[2019-01-31] MEDS: clonazePAM 0.5 MG TABLET PO SCH ×3 (09:12→20:47)
[2019-01-31] MEDS: ASPIRIN ENTERIC COATED 81 MG TABLET.DR. PO SCH (09:12)
--- NOTE | 2019-01-31 10:30 | NUR ---
Pt had accidental removal of current IV access. Pt is a hard stick, awaiting new IV access. Heparin to be restarted once IV access gained.
[2019-01-31 11:32] VITALS: BP 150/92
--- NOTE | 2019-01-31 14:23 | HP ---
ADMIT DATE: CHIEF COMPLAINT: Chest pain. HISTORY OF PRESENT ILLNESS: The patient is a pleasant 64-year-old female well known to our service. She was developing chest pain last night. She presented to the ER by ambulance. She states it is in the middle of her chest, has been occurring for at least 12 hours, rated at 7/10. She took some gbet-uvo-gxwlkcj meds, but that did not work. I discussed the case with ER physician. Her troponin is slightly high at 0.05. We placed on a heparin drip. Her BNP level is high at 1332. We placed on heparin drip. We are going to be consulting Cardiology. PAST MEDICAL HISTORY: Chronic angina, diabetes, hypertension, neuropathy, O2 dependent, cholecystectomy, hysterectomy and hernia repair, coronary artery disease with bypass. ALLERGIES: IBUPROFEN. FAMILY HISTORY: Diabetes. SOCIAL HISTORY: She does not drink, smoke or take drugs. She lives alone. MEDICATIONS: Reviewed, please refer to the MRAD. REVIEW OF SYSTEMS: GENERAL: No history of weight change, weakness or fevers. SKIN: No bruising, hair changes or rashes. EYES: No blurred, double or loss of vision. NOSE AND THROAT: No history of nosebleeds, hoarseness or sore throat. HEART: No history of palpitations or shortness of breath on exertion. She complains of chest pain. LUNGS: Denies cough, hemoptysis, wheezing or shortness of breath. GASTROINTESTINAL: Denies changes in appetite, nausea, vomiting, diarrhea or constipation. GENITOURINARY: No history of frequency, urgency, hesitancy or nocturia. NEUROLOGIC: Denies history of numbness, tingling, tremor or weakness. PSYCHIATRIC: No history of panic, anxiety or depression. ENDOCRINE: No history of heat or cold intolerance, polyuria or polydipsia. EXTREMITIES: Denies muscle weakness, joint pain, pain on walking or stiffness. PHYSICAL EXAMINATION: VITALS: Within normal limits and are stable. GENERAL: No apparent distress. Alert and oriented. HEENT: Head is normocephalic, atraumatic, pupils were equally round and reactive to light and accommodation. NECK: Supple, no JVD, no thyromegaly was noted. LUNGS: Clear to auscultation in all lung tripp without rhonchi or wheezing. HEART: RRR, S1, S2 present. Peripheral pulses intact, no obvious murmurs were noted. ABDOMEN: Soft, nontender. Positive bowel sounds no organomegaly, normal bowel sounds. EXTREMITIES: Without any cyanosis, clubbing, or edema. Pedal pulses intact, Homans sign is negative. NEUROLOGIC: Normal speech, normal tone. A and O x 3, moves all extremities, no obvious focal deficits. PSYCHIATRIC: Normal affect, normal mood. Stable. SKIN: No ulcerations or rashes, good skin turgor, no jaundice. VASCULAR: Good capillary refill, neurovascular bundle appears to be intact. LABORATORY DATA: Troponin is 0. BNP 1332. Chest x-ray shows an enlarged heart and a prominent pulmonary trunk consistent with pulmonary hypertension. There are changes of median sternotomy and atelectasis in the left lung base. ASSESSMENT AND PLAN: Chest pain. The patient is being admitted. We placed her on a heparin drip. Suspect she may have acute coronary syndrome. Consult Cardiology, serial enzymes, serial EKGs. DVT prophylaxis. Home meds. PROGNOSIS: Guarded. PERICO BUCHANAN DO DR: AHMET/amrik JOB#: [id number] / [id number]
--- NOTE | 2019-01-31 14:33 | PDOC2 ---
CONSULT Date of Consult Date of Consult DATE: 01/31/19 TIME: 14:24 Reason for Consult Reason for Consult: Chest pain Referring Physician Referring Physician: Dr. Moser Identification/Chief Complaint Chief Complaint Chest pain Source Source: Chart review, Patient History of Present Illness Reason for Visit: The patient is a 64-year-old female who was admitted through the emergency room for episodes of chest pain. Patient stated this pain was present for approximately a day and waxed and waned during that time. Her EKG has shown no acute ischemic changes. Troponin has been normal. Patient does have a history of coronary disease. She underwent a cardiac catheterization on 05/18/18 that showed a 40% lesion in the left circumflex. The previously placed GARCIA graft was patent to the LAD and a saphenous vein graft was patent to the obtuse marginal. Ejection fraction at that time was 40%. Patient apparently previously had a thrombus in her left main and LAD which led to her previous bypass surgery. She was then again seen on January 28 of this year and was thought to have noncardiac pain. She is feeling better this morning. Past Medical History Cardiovascular: CAD, CHF, HTN, PA, Hyperlipidemia, Other Pulmonary: Bronchitis, COPD CENTRAL NERVOUS SYSTEM: Periperal neuropathy GI: GERD Heme/Onc: No pertinent hx Hepatobiliary: Cholelithiasis Psych: No pertinent hx Musculoskeletal: Osteoarthritis, Weakness Rheumatologic: No pertinent hx Infectious disease: No pertinent hx Renal/: Chronic renal insuff Endocrine: Diabetes Past Surgical History Past Surgical History: Pacemaker, Appendectomy, Cholecystectomy, CABG, Total knee replacement, Hysterectomy Family History Family History: Heart Disease Social History Social History: Parent No ALCOHOL: none Drugs: Marijuana Lives: with Family Current Problem List Problem List Problems Medical Problems: (1) Chest pain Status: Acute Current Medications Current Medications Current Medications Heparin Sodium (Porcine) (Heparin Sodium) 4,000 unit 1X ONCE IV Last administered on 01/30/19at 19:11; Start 01/30/19 at 19:00; Stop 01/30/19 at 19:01; Status DC Heparin Sodium/ Dextrose 500 ml @ 0 mls/hr CONT PRN IV PER PROTOCOL Last administered on 01/30/19at 19:19; Start 01/30/19 at 19:00 Heparin Sodium (Porcine) (Heparin Sodium) 2,650 unit PRN Q6HRS PRN IV FOR UFH LEVEL LESS THAN 0.2 Last administered on 01/31/19 03:55; Start 01/30/19 at 19:00 Morphine Sulfate (Morphine Sulfate) 4 mg 1X ONCE IV Last administered on 01/30/19 19:32; Start 01/30/19 at 20:00; Stop 01/30/19 at 20:01; Status DC Ondansetron HCl (Zofran) 4 mg 1X ONCE IV Last administered on 01/30/19 19:32; Start 01/30/19 at 20:00; Stop 01/30/19 at 20:01; Status DC Ondansetron HCl (Zofran) 4 mg PRN Q8HRS PRN IV NAUSEA/VOMITING; Start 01/30/19 at 20:30; Stop 01/31/19 at 20:29 Morphine Sulfate (Morphine Sulfate) 2 mg PRN Q2HR PRN IV PAIN; Start 01/30/19 at 20:15; Stop 01/31/19 at 20:14 Morphine Sulfate (Morphine Sulfate) 4 mg 1X ONCE IV Last administered on 01/30/19 20:40; Start 01/30/19 at 21:00; Stop 01/30/19 at 21:01; Status DC Albuterol Sulfate (Ventolin Neb Soln) 2.5 mg PRN Q6HRS PRN INH SHORTNESS OF BREATH; Start 01/30/19 at 22:00 Aspirin (Ecotrin) 81 mg DAILY PO Last administered on 01/31/19 09:12; Start 01/31/19 at 09:00 Atorvastatin Calcium (Lipitor) 20 mg HS PO Last administered on 01/30/19 22:17; Start 01/30/19 at 22:00 Calcium/Vitamin D (Oscal D 500mg/ 200uts) 1 tab DAILY PO Last administered on 01/31/19 09:12; Start 01/31/19 at 09:00 Capsaicin (Zostrix) 1 tre PRN TID PRN TP TOPICAL PAIN; Start 01/30/19 at 22:00 Clonazepam (KlonoPIN) 0.5 mg TID PO Last administered on 01/31/19at 13:59; Start 01/30/19 at 22:00 Clopidogrel Bisulfate (Plavix) 75 mg DAILYWBKFT PO Last administered on 01/31/19 09:12; Start 01/31/19 at 08:00 Docusate Sodium (Colace) 100 mg BID PO Last administered on 01/31/19 09:12; Start 01/30/19 at 22:00 Ferrous Sulfate (Feosol) 325 mg DAILY PO Last administered on 01/31/19 09:12; Start 01/31/19 at 09:00 Fluoxetine HCl (PROzac) 20 mg DAILY PO Last administered on 01/31/19 09:12; Start 01/31/19 at 09:00 Furosemide (Lasix) 80 mg BID92 PO Last administered on 01/31/19at 13:58; Start 01/31/19 at 09:00 Glimepiride (Amaryl) 2 mg DAILY PO Last administered on 01/31/19 09:12; Start 01/31/19 at 09:00 Metoprolol Tartrate (Lopressor) 25 mg BID PO Last administered on 01/31/19 09:12; Start 01/30/19 at 22:00 Nitroglycerin (Nitrostat) 0.4 mg PRN Q5MIN PRN SL CHEST PAIN; Start 01/30/19 at 22:00 Ondansetron HCl (Zofran Odt) 4 mg PRN Q6HRS PRN PO NAUSEA/VOMITING 1ST CHOICE; Start 01/30/19 at 22:00 Oxycodone/ Acetaminophen (Percocet 10/325) 2 tab PRN Q4HRS PRN PO SEVERE PAIN 7-10 Last administered on 01/31/19at 13:59; Start 01/30/19 at 22:00 Pantoprazole Sodium (Protonix) 40 mg DAILYAC PO Last administered on 01/31/19at 09:12; Start 01/31/19 at 07:30 Zolpidem Tartrate (Ambien) 5 mg QHS PO Last administered on 01/30/19at 22:17; Start 01/30/19 at 22:00 Non-Formulary Medication (Albuterol Sulfate (Albuterol Sulfate Conc Neb Soln)) 5 mg PRN PRN NEB WHEEZING; Start 01/30/19 at 22:00; Status UNV Acetaminophen (Tylenol) 650 mg PRN Q6HRS PRN PO MILD PAIN / TEMP; Start 01/30/19 at 22:15 Info (Anti-Coagulation Monitoring By Pharmacy) 1 each PRN DAILY PRN MC SEE COMMENTS; Start 01/31/19 at 08:15 Active Scripts Active Protonix (Pantoprazole Sodium) 40 Mg Tablet.dr 40 Mg PO DAILYAC 60 Days Ferrous Sulfate 325 Mg Tablet 325 Mg PO DAILY 60 Days Percocet 10-325 Mg Tablet (Oxycodone/Acetaminophen) 1 Each Tablet 2 Tab PO PRN Q4-6HRS PRN MDD 1 [Percogesic] 1 Tab PO Q6-8HRS PRN Clopidogrel (Clopidogrel Bisulfate) 75 Mg Tablet 75 Mg PO DAILYWBKFT Ondansetron Odt (Ondansetron) 4 Mg Tab.rapdis 1 Tab PO PRN Q6-8HRS Proair Hfa Inhaler (Albuterol Sulfate) 8.5 Gm Hfa.aer.ad 1 Puff INH PRN Q6HRS PRN Amaryl (Glimepiride) 2 Mg Tablet 2 Mg PO DAILY 30 Days Reported Docusate Sodium 100 Mg Capsule 1 Cap PO BID Metoprolol Tartrate 25 Mg Tablet 25 Mg PO BID Capsaicin 60 Gm Cream..g. 60 Gm TP PRN TID apply to morgan feet Calcium 500 + Vit D 200 Caplet (Calcium Carbonate/Vitamin D3) 1 Each Tablet 1 Each PO DAILY Zolpidem Tartrate 5 Mg Tablet 5 Mg PO QHS Clonazepam (Clonazepam) 0.5 Mg Tablet 0.5 Mg PO TID Fluoxetine Hcl 20 Mg Capsule 1 Cap PO DAILY Furosemide 80 Mg Tablet 80 Mg PO BID Albuterol Sulfate Conc Neb Soln (Albuterol Sulfate) 2.5 Mg/0.5 Ml Vial.neb 5 Mg NEB PRN PRN NITROGLYCERIN SubLingual (Nitroglycerin) 0.4 Mg Tab.subl 0.4 Mg SL PRN Q5MIN PRN Atorvastatin Calcium 20 Mg Tablet 20 Mg PO HS Aspir 81 (Aspirin) 81 Mg Tablet. 1 Tab PO DAILY Allergies Allergies: Coded Allergies: No Known Medication Allergies (Verified Allergy, Unknown, 01/13/19) ibuprofen (Verified Adverse Reaction, Intermediate, Nausea and Vomiting, 12/02/17) ROS Cardiovascular: yes Chest Pain Physical Exam General: mild distress HEENT: Atraumatic Lungs: Clear to auscultation Heart: Regular rate Abdomen: Normal bowel sounds Vitals VITALS Vital Signs Date Time Temp Pulse Resp B/P (MAP) Pulse Ox O2 Delivery O2 Flow Rate FiO2 01/31/19 13:59 94 Room Air 2.0 01/31/19 09:12 60 184/73 01/31/19 07:33 97.7 16 97.7 Labs Labs Laboratory Tests Test 01/30/19 19:10 01/30/19 20:40 01/30/19 23:15 01/31/19 01:30 White Blood Count 7.4 x10^3/uL (4.0-11.0) Red Blood Count 4.68 x10^6/uL (3.50-5.40) Hemoglobin 11.3 g/dL (12.0-15.5) Hematocrit 36.4 % (36.0-47.0) Mean Corpuscular Volume 78 fL (79-100) Mean Corpuscular Hemoglobin 24 pg (25-35) Mean Corpuscular Hemoglobin Concent 31 g/dL (31-37) Red Cell Distribution Width 17.3 % (11.5-14.5) Platelet Count 379 x10^3/uL (140-400) Neutrophils (%) (Auto) 76 % (31-73) Lymphocytes (%) (Auto) 15 % (24-48) Monocytes (%) (Auto) 8 % (0-9) Eosinophils (%) (Auto) 0 % (0-3) Basophils (%) (Auto) 0 % (0-3) Neutrophils # (Auto) 5.6 x10^3/uL (1.8-7.7) Lymphocytes # (Auto) 1.1 x10^3/uL (1.0-4.8) Monocytes # (Auto) 0.6 x10^3/uL (0.0-1.1) Eosinophils # (Auto) 0.0 x10^3/uL (0.0-0.7) Basophils # (Auto) 0.0 x10^3/uL (0.0-0.2) Sodium Level 143 mmol/L (136-145) Potassium Level 4.0 mmol/L (3.5-5.1) Chloride Level 100 mmol/L (98-107) Carbon Dioxide Level 35 mmol/L (21-32) Anion Gap 8 (6-14) Blood Urea Nitrogen 12 mg/dL (7-20) Creatinine 0.8 mg/dL (0.6-1.0) Estimated GFR (Cockcroft-Gault) 87.1 BUN/Creatinine Ratio 15 (6-20) Glucose Level 109 mg/dL (70-99) Calcium Level 9.9 mg/dL (8.5-10.1) Magnesium Level 2.0 mg/dL (1.8-2.4) Total Bilirubin 0.3 mg/dL (0.2-1.0) Aspartate Amino Transf (AST/SGOT) 11 U/L (15-37) Alanine Aminotransferase (ALT/SGPT) 13 U/L (14-59) Alkaline Phosphatase 88 U/L (46-116) Troponin I Quantitative < 0.017 ng/mL (0.000-0.055) < 0.017 ng/mL (0.000-0.055) < 0.017 ng/mL (0.000-0.055) KY-Kbt-T-Type Natriuretic Peptide 1332 pg/mL (0-124) Total Protein 7.6 g/dL (6.4-8.2) Albumin 3.2 g/dL (3.4-5.0) Albumin/Globulin Ratio 0.7 (1.0-1.7) Lipase 78 U/L (73-393) Urine Collection Type Unknown Urine Color Yellow Urine Clarity Cloudy Urine pH 8.0 Urine Specific Serena 1.015 Urine Protein Negative mg/dL (NEG-TRACE) Urine Glucose (UA) Negative mg/dL (NEG) Urine Ketones (Stick) Negative mg/dL (NEG) Urine Blood Negative (NEG) Urine Nitrite Negative (NEG) Urine Bilirubin Negative (NEG) Urine Urobilinogen Dipstick 1.0 mg/dL (0.2 mg/dL) Urine Leukocyte Esterase Negative (NEG) Urine RBC Occ /HPF (0-2) Urine WBC 1-4 /HPF (0-4) Urine Squamous Epithelial Cells Mod /LPF Urine Bacteria Few /HPF (0-FEW) Urine Mucus Slight /LPF Heparin Anti-Xa Act, Unfractionated 0.16 IU/mL (0.30-0.70) Test 01/31/19 02:00 01/31/19 09:15 White Blood Count 8.8 x10^3/uL (4.0-11.0) Red Blood Count 4.21 x10^6/uL (3.50-5.40) Hemoglobin 10.4 g/dL (12.0-15.5) Hematocrit 33.2 % (36.0-47.0) Mean Corpuscular Volume 79 fL (79-100) Mean Corpuscular Hemoglobin 25 pg (25-35) Mean Corpuscular Hemoglobin Concent 31 g/dL (31-37) Red Cell Distribution Width 17.4 % (11.5-14.5) Platelet Count 382 x10^3/uL (140-400) Heparin Anti-Xa Act, Unfractionated 0.25 IU/mL (0.30-0.70) Laboratory Tests Test 01/30/19 19:10 01/30/19 20:40 01/30/19 23:15 01/31/19 01:30 White Blood Count 7.4 x10^3/uL (4.0-11.0) Red Blood Count 4.68 x10^6/uL (3.50-5.40) Hemoglobin 11.3 g/dL (12.0-15.5) Hematocrit 36.4 % (36.0-47.0) Mean Corpuscular Volume 78 fL (79-100) Mean Corpuscular Hemoglobin 24 pg (25-35) Mean Corpuscular Hemoglobin Concent 31 g/dL (31-37) Red Cell Distribution Width 17.3 % (11.5-14.5) Platelet Count 379 x10^3/uL (140-400) Neutrophils (%) (Auto) 76 % (31-73) Lymphocytes (%) (Auto) 15 % (24-48) Monocytes (%) (Auto) 8 % (0-9) Eosinophils (%) (Auto) 0 % (0-3) Basophils (%) (Auto) 0 % (0-3) Neutrophils # (Auto) 5.6 x10^3/uL (1.8-7.7) Lymphocytes # (Auto) 1.1 x10^3/uL (1.0-4.8) Monocytes # (Auto) 0.6 x10^3/uL (0.0-1.1) Eosinophils # (Auto) 0.0 x10^3/uL (0.0-0.7) Basophils # (Auto) 0.0 x10^3/uL (0.0-0.2) Sodium Level 143 mmol/L (136-145) Potassium Level 4.0 mmol/L (3.5-5.1) Chloride Level 100 mmol/L (98-107) Carbon Dioxide Level 35 mmol/L (21-32) Anion Gap 8 (6-14) Blood Urea Nitrogen 12 mg/dL (7-20) Creatinine 0.8 mg/dL (0.6-1.0) Estimated GFR (Cockcroft-Gault) 87.1 BUN/Creatinine Ratio 15 (6-20) Glucose Level 109 mg/dL (70-99) Calcium Level 9.9 mg/dL (8.5-10.1) Magnesium Level 2.0 mg/dL (1.8-2.4) Total Bilirubin 0.3 mg/dL (0.2-1.0) Aspartate Amino Transf (AST/SGOT) 11 U/L (15-37) Alanine Aminotransferase (ALT/SGPT) 13 U/L (14-59) Alkaline Phosphatase 88 U/L (46-116) Troponin I Quantitative < 0.017 ng/mL (0.000-0.055) < 0.017 ng/mL (0.000-0.055) < 0.017 ng/mL (0.000-0.055) CB-Ete-I-Type Natriuretic Peptide 1332 pg/mL (0-124) Total Protein 7.6 g/dL (6.4-8.2) Albumin 3.2 g/dL (3.4-5.0) Albumin/Globulin Ratio 0.7 (1.0-1.7) Lipase 78 U/L (73-393) Urine Collection Type Unknown Urine Color Yellow Urine Clarity Cloudy Urine pH 8.0 Urine Specific Serena 1.015 Urine Protein Negative mg/dL (NEG-TRACE) Urine Glucose (UA) Negative mg/dL (NEG) Urine Ketones (Stick) Negative mg/dL (NEG) Urine Blood Negative (NEG) Urine Nitrite Negative (NEG) Urine Bilirubin Negative (NEG) Urine Urobilinogen Dipstick 1.0 mg/dL (0.2 mg/dL) Urine Leukocyte Esterase Negative (NEG) Urine RBC Occ /HPF (0-2) Urine WBC 1-4 /HPF (0-4) Urine Squamous Epithelial Cells Mod /LPF Urine Bacteria Few /HPF (0-FEW) Urine Mucus Slight /LPF Heparin Anti-Xa Act, Unfractionated 0.16 IU/mL (0.30-0.70) Test 01/31/19 02:00 01/31/19 09:15 White Blood Count 8.8 x10^3/uL (4.0-11.0) Red Blood Count 4.21 x10^6/uL (3.50-5.40) Hemoglobin 10.4 g/dL (12.0-15.5) Hematocrit 33.2 % (36.0-47.0) Mean Corpuscular Volume 79 fL (79-100) Mean Corpuscular Hemoglobin 25 pg (25-35) Mean Corpuscular Hemoglobin Concent 31 g/dL (31-37) Red Cell Distribution Width 17.4 % (11.5-14.5) Platelet Count 382 x10^3/uL (140-400) Heparin Anti-Xa Act, Unfractionated 0.25 IU/mL (0.30-0.70) Images Images Previous catheterization as above. Chest x-ray shows no acute changes. Assessment/Plan Assessment/Plan 1. Recurrent chest pain. Patient is feeling better this morning. She has no acute ischemic EKG changes and troponins are not elevated. Previous bypass surgery and an updated catheterization earlier this year as above. We'll continue present medications and trend troponins. We'll keep nothing by mouth and discuss further with Dr. Aggarwal who is the patient's primary cooker loader. Also of note the patient apparently has been set up for outpatient GI studies. 2. Hypertension. Controlled. Continue medications. 3. Diabetes mellitus. As per the primary service. 4. Possible mild heart failure. More recent echo shows intact LV function. We'll continue present medications and monitor. Thank you for allowing us to participate in the care of your patient. AMPARO FITZGERALD MD Jan 31, 2019 14:33
[2019-01-31 15:43] VITALS: BP 168/82
[2019-01-31 19:00] VITALS: BP 145/65
[2019-01-31] MEDS: HEPARIN 25,000UTS/500ML PREMIX 500 ML IV PRN (19:01)
[2019-01-31] MEDS: ZOLPIDEM 5 MG TABLET. PO SCH (20:47)
[2019-01-31] MEDS: ATORVASTATIN CALCIUM 20 MG TABLET PO SCH (20:47)
[2019-01-31 23:00] VITALS: BP 157/68
[2019-02-01 03:00] VITALS: BP 143/63
[2019-02-01] MEDS: oxyCODONE/APAP 10/325 1 TAB TABLET PO PRN ×3 (04:50→13:28)
--- NOTE | 2019-02-01 06:11 | EKG ---
[facility] [address] [place] [address] Test Date: 2019-01-30 Test Time: 18:41:03 Pat Name: GRETCHEN BONILLA Department: Room: Gender: F Misdraw Hand: : 1955 Requested By: INDERJIT CANALES Order Number: [id number] Reading MD: Measurements Intervals Adrian Rate: 101 P: -41 IA: 102 QRS: -152 QRSD: 142 T: 41 QT: 386 QTc: 501 Interpretive Statements SINUS TACHYCARDIA ABNORMAL RIGHT SUPERIOR AXIS DEVIATION NON SPECIFIC INTRAVENTRICULAR BLOCK RVH WITH REPOLARIZATION ABNORMALITY QRS(T) CONTOUR ABNORMALITY CONSISTENT WITH ANTEROLATERAL INFARCT AGE UNDETERMINED CONSISTENT WITH INFERIOR INFARCT POSSIBLY RECENT ABNORMAL ECG RI6.01 No previous ECG available for comparison
[2019-02-01 07:00] VITALS: BP 139/60
[2019-02-01 07:43] LABS: BASO % 0 % (0-3); EOS # 0.1 x10^3/uL (0.0-0.7); EOS % 2 % (0-3); HEMATOCRIT 32.3 % (36.0-47.0); HEMOGLOBIN 10.1 g/dL (12.0-15.5); LYMPH # 1.9 x10^3/uL (1.0-4.8); LYMPH % 26 % (24-48); MEAN CORPUSCULAR HEMOGLOBIN 25 pg (25-35); MEAN CORPUSCULAR HGB CONC 31 g/dL (31-37); MEAN CORPUSCULAR VOLUME 80 fL (79-100); MONO # 0.7 x10^3/uL (0.0-1.1); MONO % 10 % (0-9); NEUT # 4.6 x10^3/uL (1.8-7.7); NEUT % 62 % (31-73); PLATELET COUNT 349 x10^3/uL (140-400); RED BLOOD COUNT 4.05 x10^6/uL (3.50-5.40); RED CELL DISTRIBUTION WIDTH 17.5 % (11.5-14.5); WHITE BLOOD COUNT 7.4 x10^3/uL (4.0-11.0)
[2019-02-01 08:23] LABS: ALBUMIN 2.9 g/dL (3.4-5.0); ALBUMIN/GLOBULIN RATIO 0.6 (1.0-1.7); CALCIUM 8.9 mg/dL (8.5-10.1); GFR 67.3; POTASSIUM 3.8 mmol/L (3.5-5.1); TOTAL BILIRUBIN 0.2 mg/dL (0.2-1.0); TOTAL PROTEIN 7.5 g/dL (6.4-8.2)
[2019-02-01] MEDS: ASPIRIN ENTERIC COATED 81 MG TABLET.DR. PO SCH (09:00)
[2019-02-01] MEDS: GLIMEPIRIDE 2 MG TABLET. PO SCH (09:00)
[2019-02-01 10:06] VITALS: BP 139/60
[2019-02-01] MEDS: FERROUS SULFATE 325 MG TABLET. PO SCH (10:06)
[2019-02-01] MEDS: CLOPIDOGREL BISULFATE 75 MG TABLET PO SCH (10:06)
[2019-02-01] MEDS: METOPROLOL TART IMMED RELEASE 25 MG TABLET. PO SCH (10:06)
[2019-02-01] MEDS: CALCIUM CARB/VIT D3 500/200 TABLET. PO SCH (10:06)
[2019-02-01] MEDS: FUROSEMIDE 80 MG TABLET. PO SCH (10:06)
[2019-02-01] MEDS: DOCUSATE SODIUM 100 MG CAPSULE. PO SCH (10:06)
[2019-02-01] MEDS: PANTOPRAZOLE 40 MG TABLET.DR. PO SCH (10:06)
[2019-02-01] MEDS: FLUoxetine HCL 20 MG CAPSULE PO SCH (10:06)
[2019-02-01] MEDS: clonazePAM 0.5 MG TABLET PO SCH ×2 (10:06→13:27)
--- NOTE | 2019-02-01 10:56 | NUR ---
SS following for discharge planning. SS reviewed pt chart. Pt is from home with family and is currently on room air. PT/OT recommended home at discharge. Pt has had services with [facility], ; fax [phone], in the past. SS will continue to follow for discharge planning.
--- NOTE | 2019-02-01 11:06 | PDOC ---
GABRIELLA VÁSQUEZ SENIOR FIELD ENGINEER 02/01/19 1105: CARDIO Progress Notes Date and Time Date of Service 02/01/19 Time of Evaluation 1100 Subjective Subjective: No shortness of breath, No Palpitations, No Dizziness, Other (pain right chest. ) Vitals Vitals Vital Signs Date Time Temp Pulse Resp B/P (MAP) Pulse Ox O2 Delivery O2 Flow Rate FiO2 02/01/19 10:07 18 96 Room Air 02/01/19 10:06 61 139/60 02/01/19 08:00 2.0 02/01/19 07:00 97.6 97.6 Weight Weight [ ] Input and Output Intake and Output Intake and Output 02/01/19 07:00 Intake Total 800 ml Output Total 800 ml Balance 0 ml Intake Oral 800 ml Output Urine Total 800 ml Laboratory Labs Laboratory Tests Test 01/31/19 19:10 02/01/19 01:05 02/01/19 06:45 Heparin Anti-Xa Act, Unfractionated 0.31 IU/mL (0.30-0.70) 0.41 IU/mL (0.30-0.70) White Blood Count 7.4 x10^3/uL (4.0-11.0) Red Blood Count 4.05 x10^6/uL (3.50-5.40) Hemoglobin 10.1 g/dL (12.0-15.5) Hematocrit 32.3 % (36.0-47.0) Mean Corpuscular Volume 80 fL (79-100) Mean Corpuscular Hemoglobin 25 pg (25-35) Mean Corpuscular Hemoglobin Concent 31 g/dL (31-37) Red Cell Distribution Width 17.5 % (11.5-14.5) Platelet Count 349 x10^3/uL (140-400) Neutrophils (%) (Auto) 62 % (31-73) Lymphocytes (%) (Auto) 26 % (24-48) Monocytes (%) (Auto) 10 % (0-9) Eosinophils (%) (Auto) 2 % (0-3) Basophils (%) (Auto) 0 % (0-3) Neutrophils # (Auto) 4.6 x10^3/uL (1.8-7.7) Lymphocytes # (Auto) 1.9 x10^3/uL (1.0-4.8) Monocytes # (Auto) 0.7 x10^3/uL (0.0-1.1) Eosinophils # (Auto) 0.1 x10^3/uL (0.0-0.7) Basophils # (Auto) 0.0 x10^3/uL (0.0-0.2) Sodium Level 141 mmol/L (136-145) Potassium Level 3.8 mmol/L (3.5-5.1) Chloride Level 99 mmol/L (98-107) Carbon Dioxide Level 36 mmol/L (21-32) Anion Gap 6 (6-14) Blood Urea Nitrogen 18 mg/dL (7-20) Creatinine 1.0 mg/dL (0.6-1.0) Estimated GFR (Cockcroft-Gault) 67.3 BUN/Creatinine Ratio 18 (6-20) Glucose Level 138 mg/dL (70-99) Calcium Level 8.9 mg/dL (8.5-10.1) Total Bilirubin 0.2 mg/dL (0.2-1.0) Aspartate Amino Transf (AST/SGOT) 12 U/L (15-37) Alanine Aminotransferase (ALT/SGPT) 13 U/L (14-59) Alkaline Phosphatase 80 U/L (46-116) Total Protein 7.5 g/dL (6.4-8.2) Albumin 2.9 g/dL (3.4-5.0) Albumin/Globulin Ratio 0.6 (1.0-1.7) Physical Exam HEENT: Neck Supple W Full Motion Chest: Symmetric, Other (right chest tenderness upon palpitaiton) LUNGS: Clear to Auscultation Heart: S1S2, RRR Abdomen: Soft N/T Extremities: No Edema Neurology: alert, oriented, follow commands Assessment Assessment 1. Chest pain, atypical. AMI ruled out. most probably MSK in origin. EKG with RBBB 2. CAD s/p CABG. Recent cardiac catheterization noted above without any lesions needing intervention. Recent echo with preserved LV systolic function 4. Hypertension; controlled 4. Chronic diastolic CHF; clinically compensated 5. SSS/PPM in situ 6. Hyperlipidemia; statin therapy 7. Diabetes, II; as per PCP Recommendations Discontinue heparin gtt. Continue with secondary prevention measures No further cardiac workup warranted at this time May discharge from a CV standpoint and f/u in our office with Dr. Aggarwal as scheduled MISBAH AGGARWAL MD 02/01/198: CARDIO Progress Notes Assessment Assessment Patient seen and examined. Agree with FINANCIAL CONSULTANT's assessment and plan. Recurrent CP with atypical features and most probably musculoskeletal KS ruled out Recent cardiac cath did not show any lesions needing intervention No further cardiac workup is indicated at this time GABRIELLA VÁSQUEZ APRN Feb 01, 2019 11:05 MISBAH AGGARWAL MD Feb 01, 2019 19:28
--- NOTE | 2019-02-01 15:00 | NUR ---
Patient is dc'd home.Discharge instructions given. PIV and heart monitor removed. [facility] transportation escorted off unit per wheelchair to home.
--- NOTE | 2019-02-02 18:25 | DS ---
DATE OF DISCHARGE: 02/01/2019 ADMISSION DIAGNOSIS: Chest pain. DISCHARGE DIAGNOSIS: Atypical chest pain. HOSPITAL COURSE: The patient is a pleasant 64-year-old female, who presented with chest pain. We did a full cardiac workup and consulted Cardiology. It was felt that she probably just has some musculoskeletal pain, although she does have a known previous history of coronary artery disease. Yesterday when I saw her and examined her, she was doing well. We discharged to home with close outpatient followup. DISPOSITION: Home. ACTIVITY: As tolerated. DIET: Low sodium. MEDICATIONS: Please see the MRAD. TOTAL TIME: 34 minutes. CORDELLL Pat BUCHANAN DO DR: AHMET/amrik JOB#: [id number] / [id number]
[2019-02-03] MEDS ORDERED: CALC500T31 PO (17:03)
[2019-02-03] MEDS ORDERED: LOSA100T14 PO (17:03)
[2019-02-03] MEDS ORDERED: AMLO5TAB10 PO (17:03)
== END 2019-02-01 15:01 | disposition home or self-care (01) | DRG 313 ==
LOC: ER 18:39 → 2 SOUTH 20:10
PROVIDERS: ADMIT Family Medicine; ATTEND Family Medicine
DX: R07.89 Other chest pain (principal); I13.0 Hypertensive heart and chronic kidney disease with heart failure and stage 1 through stage 4 chronic kidney disease, or unspecified chronic kidney disease; I50.32 Chronic diastolic (congestive) heart failure; E78.5 Hyperlipidemia, unspecified; E11.22 Type 2 diabetes mellitus with diabetic chronic kidney disease; E11.40 Type 2 diabetes mellitus with diabetic neuropathy, unspecified; N18.9 Chronic kidney disease, unspecified; I25.10 Atherosclerotic heart disease of native coronary artery without angina pectoris; J44.9 Chronic obstructive pulmonary disease, unspecified; Z83.3 Family history of diabetes mellitus; Z90.710 Acquired absence of both cervix and uterus; Z95.1 Presence of aortocoronary bypass graft; Z96.659 Presence of unspecified artificial knee joint; Z99.81 Dependence on supplemental oxygen; G89.29 Other chronic pain; K21.9 Gastro-esophageal reflux disease without esophagitis; M19.90 Unspecified osteoarthritis, unspecified site; Z79.899 Other long term (current) drug therapy; Z88.8 Allergy status to other drugs, medicaments and biological substances
CPT/HCPCS: 36415; 71045; 80053; 81001; 83690; 83735; 83880; 84484; 85025; 85027; 85520; 93005; 94640; 94760; 96374; 96375; 96376; J1644; J2270; J2405; 97535; 99285-25; G0378

== ENCOUNTER 2019-02-12 15:37 | Emergency (ER) | payer OTHER ==
[~2019-02-12] VITALS: Ht 157.5 cm; Wt 105.2 kg
[~2019-02-12 15:37] MED LIST changes: +CALC500T31 PO; +FLUO20CA19 PO; -FLUO20CA8 PO
[2019-02-12] MEDS ORDERED: IPRATRPIUM/ALBUTEROL 0.5/2.5MG 3 ML NEBU. NEB ONE (16:00)
[2019-02-12] MEDS ORDERED: MORPHINE SULFATE 4 MG/ML VIAL. IV/SQ PRN (16:00)
[2019-02-12] MEDS ORDERED: ONDANSETRON PF 4 MG/2 ML VIAL. IVP ONE (16:00)
[2019-02-12] MEDS ORDERED: NITROGLYCERIN SUBLINGUAL 0.4 MG BOTTLE OF 25. SL PRN (16:00)
--- NOTE | 2019-02-12 16:04 | EKG ---
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
[2019-02-12] MEDS ORDERED: methylPREDNISolone SOD SUCC PF 125 MG/2 ML VIAL. IV ONE (16:15)
--- NOTE | 2019-02-12 16:18 | PHYS DOC ---
Past Medical History Past Medical History: COPD, Diabetes-Type II, Hypertension, AL Additional Past Medical Histor: O2 @3 L PRN, chronic pain, NEUROPATHY (DESMOND CARSON APRN) Past Surgical History: Cholecystectomy, Hysterectomy, Pacemaker Additional Past Surgical Histo: HERNIA REPAIR (DESMOND CARSON APRN) Alcohol Use: None Drug Use: None (DESMOND CARSON APRN) Attending Signature I have participated in the care of this patient and I have reviewed and agree with all pertinent clinical information above including history, exam, and recommendations. (FRAN WHITMORE MD) Adult General Chief Complaint Chief Complaint: MULTIPLE COMPLAINTS HPI HPI Patient is a 64 year old female with a history of diabetes type 2, hypertension, AL, COPD, who presents to the ED today complaining of shortness of breath intermittently for couple days. Patient states symptoms are worse on exertion. Patient is also complaining of nausea with no vomiting for a couple days. She is also complaining of left upper quadrant abdominal pain. Denies any urgency, frequency, dysuria. Denies any chest pain today. (DESMOND CARSON APRN) Review of Systems Review of Systems Constitutional: Denies fever or chills [] Eyes: Denies change in visual acuity, redness, or eye pain [] HENT: Denies nasal congestion or sore throat [] Respiratory: Reports shortness of breath, denies coughing Cardiovascular: No additional information not addressed in HPI [] GI: Reports left upper quadrant abdominal pain, nausea, denies vomiting, bloody stools or diarrhea [] : Denies dysuria or hematuria [] Musculoskeletal: Denies back pain or joint pain [] Integument: Denies rash or skin lesions [] Neurologic: Denies headache, focal weakness or sensory changes [] All other systems were reviewed and found to be within normal limits, except as documented in this note. (DESMOND CARSON APRN) Current Medications Current Medications Current Medications Medications (Trade) Dose Ordered Sig/Susan Start Time Stop Time Status Last Admin Dose Admin Albuterol/ Ipratropium (Duoneb) 3 ml 1X ONCE 02/12/19 16:00 02/12/19 16:03 DC 02/12/19 16:13 3 ML Clonidine HCl (Catapres) 0.1 mg 1X ONCE 02/12/19 18:45 02/12/19 18:46 DC 02/12/19 18:55 0.1 MG Methylprednisolone Sodium Succinate (SOLU-Medrol 125MG VIAL) 125 mg 1X ONCE 02/12/19 16:15 02/12/19 16:16 DC 02/12/19 17:32 125 MG Morphine Sulfate (Morphine Sulfate) 5 mg 1X ONCE 02/12/19 18:45 02/12/19 18:46 DC 02/12/19 18:55 5 MG Nitroglycerin (Nitrostat) 0.4 mg PRN Q5MIN PRN 02/12/19 16:00 02/12/19 19:37 DC Ondansetron HCl (Zofran) 4 mg 1X ONCE 02/12/19 16:00 02/12/19 16:03 DC 02/12/19 17:33 4 MG (FRAN WHITMORE MD) Allergies Allergies Allergies Coded Allergies Type Severity Reaction Last Updated Verified ibuprofen Adverse Reaction Intermediate Nausea and Vomiting 12/02/17 Yes (FRAN WHITMORE MD) Physical Exam Physical Exam Constitutional: Well developed, well nourished, no acute distress, non-toxic appearance. [] HENT: Normocephalic, atraumatic, bilateral external ears normal, oropharynx moist, no oral exudates, nose normal. [] Eyes: PERRLA, EOMI, conjunctiva normal, no discharge. [] Neck: Normal range of motion, no tenderness, supple, no stridor. [] Cardiovascular:Heart rate regular rhythm, no murmur [] Lungs & Thorax: Bilateral breath sounds clear to auscultation [] Abdomen: Bowel sounds normal, soft, no tenderness, no masses, no pulsatile masses. [] Skin: Warm, dry, no erythema, no rash. [] Back: No tenderness, no CVA tenderness. [] Extremities: No tenderness, no cyanosis, no clubbing, ROM intact, no edema. [] Neurologic: Alert and oriented X 3, normal motor function, normal sensory function, no focal deficits noted. [] Psychologic: Affect normal, judgement normal, mood normal. [] (DESMOND CARSON APRN) Current Patient Data Vital Signs Vital Signs Date Time Temp Pulse Resp B/P (MAP) Pulse Ox O2 Delivery O2 Flow Rate FiO2 02/12/19 19:31 83 26 176/112 (133) 96 Room Air 02/12/19 16:15 99.1 99.1 (FRAN WHITMORE MD) Lab Values Laboratory Tests Test 02/12/19 16:10 02/12/19 18:00 Urine Collection Type Unknown Urine Color Yellow Urine Clarity Clear Urine pH 8.0 Urine Specific [place] 1.010 Urine Protein 100 mg/dL (NEG-TRACE) Urine Glucose (UA) Negative mg/dL (NEG) Urine Ketones (Stick) Trace mg/dL (NEG) Urine Blood Negative (NEG) Urine Nitrite Negative (NEG) Urine Bilirubin Negative (NEG) Urine Urobilinogen Dipstick 1.0 mg/dL (0.2 mg/dL) Urine Leukocyte Esterase Negative (NEG) Urine RBC Occ /HPF (0-2) Urine WBC 1-4 /HPF (0-4) Urine Squamous Epithelial Cells Mod /LPF Urine Bacteria Few /HPF (0-FEW) Urine Opiates Screen Neg (NEG) Urine Methadone Screen Neg (NEG) Urine Barbiturates Neg (NEG) Urine Phencyclidine Screen Neg (NEG) Urine Amphetamine/Methamphetamine Neg (NEG) Urine Benzodiazepines Screen Neg (NEG) Urine Cocaine Screen Neg (NEG) Urine Cannabinoids Screen Neg (NEG) Urine Ethyl Alcohol Neg (NEG) White Blood Count 10.9 x10^3/uL (4.0-11.0) Red Blood Count 4.22 x10^6/uL (3.50-5.40) Hemoglobin 10.4 g/dL (12.0-15.5) L Hematocrit 32.9 % (36.0-47.0) L Mean Corpuscular Volume 78 fL (79-100) L Mean Corpuscular Hemoglobin 25 pg (25-35) Mean Corpuscular Hemoglobin Concent 32 g/dL (31-37) Red Cell Distribution Width 17.4 % (11.5-14.5) H Platelet Count 375 x10^3/uL (140-400) Neutrophils (%) (Auto) 77 % (31-73) H Lymphocytes (%) (Auto) 14 % (24-48) L Monocytes (%) (Auto) 9 % (0-9) Eosinophils (%) (Auto) 0 % (0-3) Basophils (%) (Auto) 1 % (0-3) Neutrophils # (Auto) 8.4 x10^3/uL (1.8-7.7) H Lymphocytes # (Auto) 1.5 x10^3/uL (1.0-4.8) Monocytes # (Auto) 0.9 x10^3/uL (0.0-1.1) Eosinophils # (Auto) 0.0 x10^3/uL (0.0-0.7) Basophils # (Auto) 0.1 x10^3/uL (0.0-0.2) Sodium Level 138 mmol/L (136-145) Potassium Level 3.6 mmol/L (3.5-5.1) Chloride Level 97 mmol/L (98-107) L Carbon Dioxide Level 31 mmol/L (21-32) Anion Gap 10 (6-14) Blood Urea Nitrogen 8 mg/dL (7-20) Creatinine 0.7 mg/dL (0.6-1.0) Estimated GFR (Cockcroft-Gault) 101.6 BUN/Creatinine Ratio 11 (6-20) Glucose Level 121 mg/dL (70-99) H Calcium Level 9.9 mg/dL (8.5-10.1) Magnesium Level 2.4 mg/dL (1.8-2.4) Total Bilirubin 0.6 mg/dL (0.2-1.0) Aspartate Amino Transferase (AST) 13 U/L (15-37) L Alanine Aminotransferase (ALT) 13 U/L (14-59) L Alkaline Phosphatase 91 U/L (46-116) Troponin I Quantitative < 0.017 ng/mL (0.000-0.055) YA-Kct-U-Type Natriuretic Peptide 5432 pg/mL (0-124) H Total Protein 7.8 g/dL (6.4-8.2) Albumin 3.5 g/dL (3.4-5.0) Albumin/Globulin Ratio 0.8 (1.0-1.7) L Thyroid Stimulating Hormone (TSH) 0.405 uIU/mL (0.358-3.74) Ethyl Alcohol Level < 10 mg/dL (0-10) Laboratory Tests 02/12/19 18:00 Laboratory Tests 02/12/19 18:00 (FRAN WHITMORE MD) Lab Values Laboratory Tests Test 02/12/19 16:10 02/12/19 18:00 Urine Collection Type Unknown Urine Color Yellow Urine Clarity Clear Urine pH 8.0 Urine Specific [place] 1.010 Urine Protein 100 mg/dL (NEG-TRACE) Urine Glucose (UA) Negative mg/dL (NEG) Urine Ketones (Stick) Trace mg/dL (NEG) Urine Blood Negative (NEG) Urine Nitrite Negative (NEG) Urine Bilirubin Negative (NEG) Urine Urobilinogen Dipstick 1.0 mg/dL (0.2 mg/dL) Urine Leukocyte Esterase Negative (NEG) Urine RBC Occ /HPF (0-2) Urine WBC 1-4 /HPF (0-4) Urine Squamous Epithelial Cells Mod /LPF Urine Bacteria Few /HPF (0-FEW) Urine Opiates Screen Neg (NEG) Urine Methadone Screen Neg (NEG) Urine Barbiturates Neg (NEG) Urine Phencyclidine Screen Neg (NEG) Urine Amphetamine/Methamphetamine Neg (NEG) Urine Benzodiazepines Screen Neg (NEG) Urine Cocaine Screen Neg (NEG) Urine Cannabinoids Screen Neg (NEG) Urine Ethyl Alcohol Neg (NEG) White Blood Count 10.9 x10^3/uL (4.0-11.0) Red Blood Count 4.22 x10^6/uL (3.50-5.40) Hemoglobin 10.4 g/dL (12.0-15.5) L Hematocrit 32.9 % (36.0-47.0) L Mean Corpuscular Volume 78 fL (79-100) L Mean Corpuscular Hemoglobin 25 pg (25-35) Mean Corpuscular Hemoglobin Concent 32 g/dL (31-37) Red Cell Distribution Width 17.4 % (11.5-14.5) H Platelet Count 375 x10^3/uL (140-400) Neutrophils (%) (Auto) 77 % (31-73) H Lymphocytes (%) (Auto) 14 % (24-48) L Monocytes (%) (Auto) 9 % (0-9) Eosinophils (%) (Auto) 0 % (0-3) Basophils (%) (Auto) 1 % (0-3) Neutrophils # (Auto) 8.4 x10^3/uL (1.8-7.7) H Lymphocytes # (Auto) 1.5 x10^3/uL (1.0-4.8) Monocytes # (Auto) 0.9 x10^3/uL (0.0-1.1) Eosinophils # (Auto) 0.0 x10^3/uL (0.0-0.7) Basophils # (Auto) 0.1 x10^3/uL (0.0-0.2) Sodium Level 138 mmol/L (136-145) Potassium Level 3.6 mmol/L (3.5-5.1) Chloride Level 97 mmol/L (98-107) L Carbon Dioxide Level 31 mmol/L (21-32) Anion Gap 10 (6-14) Blood Urea Nitrogen 8 mg/dL (7-20) Creatinine 0.7 mg/dL (0.6-1.0) Estimated GFR (Cockcroft-Gault) 101.6 BUN/Creatinine Ratio 11 (6-20) Glucose Level 121 mg/dL (70-99) H Calcium Level 9.9 mg/dL (8.5-10.1) Magnesium Level 2.4 mg/dL (1.8-2.4) Total Bilirubin 0.6 mg/dL (0.2-1.0) Aspartate Amino Transferase (AST) 13 U/L (15-37) L Alanine Aminotransferase (ALT) 13 U/L (14-59) L Alkaline Phosphatase 91 U/L (46-116) Troponin I Quantitative < 0.017 ng/mL (0.000-0.055) PN-Epn-G-Type Natriuretic Peptide 5432 pg/mL (0-124) H Total Protein 7.8 g/dL (6.4-8.2) Albumin 3.5 g/dL (3.4-5.0) Albumin/Globulin Ratio 0.8 (1.0-1.7) L Ethyl Alcohol Level < 10 mg/dL (0-10) Laboratory Tests 02/12/19 18:00 Laboratory Tests 02/12/19 18:00 (DESMOND CARSON APRN) EKG EKG [address] Hudson LBBB HR 84 EKG similar to previous ones no STEMI[] (DESMOND CARSON APRN) Radiology/Procedures Radiology/Procedures []PROCEDURE: ABDOMEN COMPLETE ABDOMEN COMPLETE Realtime grayscale images of the abdomen with color and pulsed doppler utilized as appropriate. History: Abdominal pain Comparison: None. Findings: The liver is normal in appearance and echogenicity. No intrahepatic biliary ductal dilatation or mass is seen. Portal Vein flow is hepatopetal. Cholecystectomy. The pancreas is not well visualized. The IVC and aorta are partially visualized. The maximum diameter of the residual aorta is 1.9 cm. The right kidney is normal in appearance, measuring 11.8 cm in length. 1.5 cm right renal cyst. The left kidney is normal in appearance, measuring 11.4 cm in length. No hydronephrosis or perinephric fluid are seen bilaterally. The spleen is normal in appearance and measures 9.9 cm. Impression: No acute abdominal process is seen sonographically. Cholecystectomy. Electronically signed by: Jerardo Garnica MD (02/12/2019 5:05 PM) [id number] DICTATED and SIGNED BY: JERARDO GARNICA MD DATE: 02/12/19 170 (DESMOND CARSON APRN) Course & Med Decision Making Course & Med Decision Making Pertinent Labs and Imaging studies reviewed. (See chart for details) This is a 64-year-old female patient well known to this ED presenting today with shortness of breath, nausea and left upper quadrant pain that began a couple days ago. Patient is well known to this ED. Patient workup today was negative. She has no chest pain. I went to the room and told patient she'll be discharged to home. She started asking to be admitted even just for one night. Informed patient we do not admit patients who do not meet admission criteria. Requested she follows up with her own PCP. She stated she will return to the ED sometime today or tomorrow. (DESMOND CARSON APRN) Dragon Disclaimer Dragon Disclaimer This electronic medical record was generated, in whole or in part, using a voice recognition dictation system. (DESMOND CARSON APRN) Departure Departure Impression: Primary Impression: Shortness of breath Additional Impressions: HTN (hypertension) Left upper quadrant pain Disposition: HOME, SELF-CARE Condition: STABLE Referrals: JENSEN CUEVAS (PCP) Follow-up next week Patient Instructions: Shortness of Breath, [id number] Additional Instructions: You were evaluated in the emergency room for shortness of breath. Your work up in the emergency room was negative please follow-up with your own doctor in the course of next week. Scripts Albuterol Sulfate (VENTOLIN HFA INHALER) 18 Gm Hfa.aer.ad 2 PUFF INH Q4HRS for FOR ASTHMA, #1 INHALER 0 Refills Prov: DESMOND CARSON APRN 02/12/19 Problem Qualifiers Additional Impressions: HTN (hypertension) Hypertension type: unspecified Qualified Codes: I10 - Essential (primary) hypertension DESMOND CARSON APRN Feb 12, 2019 16:18 FRAN WHITMORE MD Feb 13, 2019 04:26
[2019-02-12 16:21] LABS: BILIRUBIN,URINE NEGATIVE (NEG); CLARITY,URINE CLEAR; COLOR,URINE YELLOW; NITRITE,URINE NEGATIVE (NEG); PROTEIN,URINE 100 mg/dL (NEG-TRACE)
[2019-02-12 16:26] LABS: BARBITURATES NEG (NEG); BENZODIAZEPINES NEG (NEG); CANNABINOIDS NEG (NEG); COCAINE NEG (NEG); METHADONE NEG (NEG); OPIATES NEG (NEG); PHENCYCLIDINE NEG (NEG)
[2019-02-12 16:29] LABS: RBC,URINE OCC /HPF (0-2)
[2019-02-12 16:30] LABS: BACTERIA,URINE FEW /HPF (0-FEW); SQUAMOUS EPITHELIAL CELL,UR MOD /LPF
[2019-02-12 16:34] LABS: AMPHETAMINE/METHAMPHETAMINE NEG (NEG)
--- NOTE | 2019-02-12 17:08 | RAD ---
ABDOMEN COMPLETE Realtime grayscale images of the abdomen with color and pulsed doppler utilized as appropriate. History: Abdominal pain Comparison: None. Findings: The liver is normal in appearance and echogenicity. No intrahepatic biliary ductal dilatation or mass is seen. Portal Vein flow is hepatopetal. Cholecystectomy. The pancreas is not well visualized. The IVC and aorta are partially visualized. The maximum diameter of the residual aorta is 1.9 cm. The right kidney is normal in appearance, measuring 11.8 cm in length. 1.5 cm right renal cyst. The left kidney is normal in appearance, measuring 11.4 cm in length. No hydronephrosis or perinephric fluid are seen bilaterally. The spleen is normal in appearance and measures 9.9 cm. Impression: No acute abdominal process is seen sonographically. Cholecystectomy. Electronically signed by: Javier Garnica MD (02/12/2019 5:05 PM) [id number]
[2019-02-12 18:11] LABS: BASO # 0.1 x10^3/uL (0.0-0.2); BASO % 1 % (0-3); EOS % 0 % (0-3); HEMATOCRIT 32.9 % (36.0-47.0); HEMOGLOBIN 10.4 g/dL (12.0-15.5); LYMPH # 1.5 x10^3/uL (1.0-4.8); LYMPH % 14 % (24-48); MEAN CORPUSCULAR HEMOGLOBIN 25 pg (25-35); MEAN CORPUSCULAR HGB CONC 32 g/dL (31-37); MEAN CORPUSCULAR VOLUME 78 fL (79-100); MONO # 0.9 x10^3/uL (0.0-1.1); MONO % 9 % (0-9); NEUT # 8.4 x10^3/uL (1.8-7.7); NEUT % 77 % (31-73); PLATELET COUNT 375 x10^3/uL (140-400); RED BLOOD COUNT 4.22 x10^6/uL (3.50-5.40); RED CELL DISTRIBUTION WIDTH 17.4 % (11.5-14.5); WHITE BLOOD COUNT 10.9 x10^3/uL (4.0-11.0)
[2019-02-12 18:22] LABS: CALCIUM 9.9 mg/dL (8.5-10.1); CREATININE 0.7 mg/dL (0.6-1.0); GFR 101.6; POTASSIUM 3.6 mmol/L (3.5-5.1)
[2019-02-12 18:28] LABS: ALBUMIN 3.5 g/dL (3.4-5.0); ALBUMIN/GLOBULIN RATIO 0.8 (1.0-1.7); MAGNESIUM 2.4 mg/dL (1.8-2.4); TOTAL BILIRUBIN 0.6 mg/dL (0.2-1.0); TOTAL PROTEIN 7.8 g/dL (6.4-8.2)
[2019-02-12] MEDS ORDERED: cloNIDine HCL 0.1 MG TABLET PO ONE (18:45)
[2019-02-12] MEDS ORDERED: MORPHINE SULFATE 10 MG/ML VIAL. IV ONE (18:45)
[2019-02-12] MEDS ORDERED: VENTOLIN HFA18 GM INH (19:07)
[2019-02-12 19:31] VITALS: BP 176/112
--- NOTE | 2019-02-12 20:09 | RAD ---
PORTABLE CHEST 1V INDICATION: Dyspnea. COMPARISON STUDY: 02/02/2019. FINDINGS: Left pectoral transvenous dual-chamber pacemaker Lungs: Normal lung volume. No pulmonary mass or consolidation. The tracheobronchial tree and hilar structures are normal. Pleura: No pleural effusion or pneumothorax. Heart and Mediastinum: Cardiomegaly. Atherosclerotic thoracic aorta. Bones and Soft Tissues: The bones and soft tissues are within normal limits. IMPRESSION: No consolidation. Electronically signed by: Javier Garnica MD (02/12/2019 8:06 PM) [facility]
[2019-02-16] MEDS ORDERED: FERR325T72 PO (12:48)
== END 2019-02-12 19:30 | disposition home or self-care (01) ==
LOC: ER 15:37
DX: R10.12 Left upper quadrant pain (principal); R06.02 Shortness of breath; I10 Essential (primary) hypertension; J44.9 Chronic obstructive pulmonary disease, unspecified; E11.9 Type 2 diabetes mellitus without complications; I25.2 Old myocardial infarction; G89.29 Other chronic pain; Z90.49 Acquired absence of other specified parts of digestive tract; Z90.710 Acquired absence of both cervix and uterus; Z95.0 Presence of cardiac pacemaker; Z88.8 Allergy status to other drugs, medicaments and biological substances
CPT/HCPCS: 99285; J2270; J2405; J2930; J7620; 36415; 71045; 76700; 80053; 80307; 81001; 83735; 83880; 84443; 84484; 85025; 93005; 94640; 96374; 96375; 96376; G0480

== ENCOUNTER 2019-03-02 14:46 | Inpatient (IN) | payer OTHER ==
[~2019-03-02] VITALS: Ht 162.6 cm; Wt 107.1 kg
[~2019-03-02 14:46] MED LIST changes: +FERR325T72 PO; +VENTOLIN HFA18 GM INH
[2019-03-02 15:23] LABS: BASO # 0.1 x10^3/uL (0.0-0.2); BASO % 1 % (0-3); EOS % 0 % (0-3); HEMATOCRIT 31.8 % (36.0-47.0); HEMOGLOBIN 9.9 g/dL (12.0-15.5); LYMPH # 0.7 x10^3/uL (1.0-4.8); LYMPH % 9 % (24-48); MEAN CORPUSCULAR HEMOGLOBIN 24 pg (25-35); MEAN CORPUSCULAR HGB CONC 31 g/dL (31-37); MEAN CORPUSCULAR VOLUME 79 fL (79-100); MONO # 0.6 x10^3/uL (0.0-1.1); MONO % 7 % (0-9); NEUT # 6.8 x10^3/uL (1.8-7.7); NEUT % 84 % (31-73); PLATELET COUNT 277 x10^3/uL (140-400); RED BLOOD COUNT 4.04 x10^6/uL (3.50-5.40); RED CELL DISTRIBUTION WIDTH 18.1 % (11.5-14.5); WHITE BLOOD COUNT 8.1 x10^3/uL (4.0-11.0)
[2019-03-02] MEDS ORDERED: methylPREDNISolone SOD SUCC PF 125 MG/2 ML VIAL. IV ONE (15:30)
[2019-03-02] MEDS ORDERED: IPRATRPIUM/ALBUTEROL 0.5/2.5MG 3 ML NEBU. NEB ONE (15:30)
[2019-03-02 15:32] LABS: CALCIUM 9.5 mg/dL (8.5-10.1); CREATININE 0.9 mg/dL (0.6-1.0); POTASSIUM 3.7 mmol/L (3.5-5.1)
[2019-03-02 15:36] LABS: PROTHROMBIN TIME PATIENT 11.3 SEC (11.7-14.0)
[2019-03-02 15:38] LABS: ALBUMIN 3.1 g/dL (3.4-5.0); ALBUMIN/GLOBULIN RATIO 0.7 (1.0-1.7); TOTAL BILIRUBIN 0.4 mg/dL (0.2-1.0); TOTAL PROTEIN 7.8 g/dL (6.4-8.2)
--- NOTE | 2019-03-02 15:38 | RAD ---
Examination: PORTABLE CHEST 1V History: Chest pain Comparison/Correlation: 02/14/2019 portable chest x-ray exam Findings: Portable upright frontal view of the chest was obtained. Dual-lead left-sided pacemaker is present. Sternal wires are present. Mediastinal clips noted. Cardiomegaly noted. No pneumothorax. Pulmonary vasculature is borderline. No definite pleural effusion. Pulmonary hyperinflation present. Impression: Borderline pulmonary vasculature congestion. No significant change. Electronically signed by: Amador Corbett MD (03/02/2019 3:35 PM) [facility] [place]
[2019-03-02] MEDS ORDERED: MORPHINE SULFATE 2 MG/ML VIAL. IV ONE (15:45)
[2019-03-02] MEDS ORDERED: ONDANSETRON PF 4 MG/2 ML VIAL. IV ONE (15:45)
--- NOTE | 2019-03-02 15:56 | PHYS DOC ---
Past Medical History Past Medical History: CHF, COPD, Diabetes-Type II, High Cholesterol, Hypertension, [place] Additional Past Medical Histor: O2 @3 L PRN, chronic pain, NEUROPATHY Past Surgical History: Cholecystectomy, Coronary Bypass Surgery, Hysterectomy, Pacemaker Additional Past Surgical Histo: HERNIA REPAIR, CABG X 2 VESSELS Alcohol Use: None Drug Use: None Adult General Chief Complaint Chief Complaint: CHEST PAIN HPI HPI Patient is a 64 year old female who presents with shortness of air and chest pain since Friday with a dry cough. Patient states low-grade fever. Patient states she's had nausea and vomiting this morning and is bile because she has not ate any food. Patient states she has mid and right-sided chest pain that also started on Friday. States she's taken 3 nitros today without relief and 4 baby aspirins. Patient during her pain an 8 out of 10. Patient states she got headache from the nitroglycerin. She states her last steroid use was 2-3 weeks ago. Patient states that she took a breathing treatment last night and it did help some. Patient has a history of COPD, sick sinus syndrome, JUNIOR, diabetes type 1 and type II, obesity, VIOLETTA, hypertension, [place], CHF, chronic pain. She is vomiting in the emergency room bile. Review of Systems Review of Systems Constitutional: Denies fever or chills [] Eyes: Denies change in visual acuity, redness, or eye pain [] HENT: Denies nasal congestion or sore throat [] Respiratory: Denies cough or shortness of breath [] Cardiovascular: No additional information not addressed in HPI [] GI: Denies abdominal pain, nausea, vomiting, bloody stools or diarrhea [] : Denies dysuria or hematuria [] Musculoskeletal: Denies back pain or joint pain [] Integument: Denies rash or skin lesions [] Neurologic: Denies headache, focal weakness or sensory changes [] Endocrine: Denies polyuria or polydipsia [] All other systems were reviewed and found to be within normal limits, except as documented in this note. Current Medications Current Medications Current Medications Medications (Trade) Dose Ordered Sig/Susan Start Time Stop Time Status Last Admin Dose Admin Albuterol/ Ipratropium (Duoneb) 3 ml 1X ONCE 03/02/19 15:30 03/02/19 15:31 DC 03/02/19 15:48 3 ML Furosemide (Lasix) 40 mg 1X ONCE 03/02/19 17:00 03/02/19 17:01 UNV Methylprednisolone Sodium Succinate (SOLU-Medrol 125MG VIAL) 125 mg 1X ONCE 03/02/19 15:30 03/02/19 15:31 DC 03/02/19 16:14 125 MG Morphine Sulfate (Morphine Sulfate) 2 mg 1X ONCE 03/02/19 15:45 03/02/19 15:47 DC 03/02/19 16:15 2 MG Ondansetron HCl (Zofran) 4 mg 1X ONCE 03/02/19 15:45 03/02/19 15:47 DC 03/02/19 16:15 4 MG Allergies Allergies Allergies Coded Allergies Type Severity Reaction Last Updated Verified ibuprofen Adverse Reaction Intermediate Nausea and Vomiting 12/02/17 Yes Physical Exam Physical Exam Constitutional: Well developed, well nourished, no acute distress, non-toxic appearance. [] HENT: Normocephalic, atraumatic, bilateral external ears normal, oropharynx moist, no oral exudates, nose normal. [] Eyes: PERRLA, EOMI, conjunctiva normal, no discharge. [] Neck: Normal range of motion, no tenderness, supple, no stridor. [] Cardiovascular:Heart rate regular rhythm, no murmur [] Lungs & Thorax: Bilateral breath sounds clear to auscultation [] Abdomen: Bowel sounds normal, soft, no tenderness, no masses, no pulsatile masses. [] Skin: Warm, dry, no erythema, no rash. [] Back: No tenderness, no CVA tenderness. [] Extremities: No tenderness, no cyanosis, no clubbing, ROM intact, no edema. [] Neurologic: Alert and oriented X 3, normal motor function, normal sensory function, no focal deficits noted. [] Psychologic: Affect normal, judgement normal, mood normal. [] Current Patient Data Vital Signs Vital Signs Date Time Temp Pulse Resp B/P (MAP) Pulse Ox O2 Delivery O2 Flow Rate FiO2 03/02/19 16:15 19 100 Nasal Cannula 2.0 03/02/19 14:50 98.2 75 189/89 (122) 98.2 Lab Values Laboratory Tests Test 03/02/19 15:15 03/02/19 15:48 White Blood Count 8.1 x10^3/uL (4.0-11.0) Red Blood Count 4.04 x10^6/uL (3.50-5.40) Hemoglobin 9.9 g/dL (12.0-15.5) L Hematocrit 31.8 % (36.0-47.0) L Mean Corpuscular Volume 79 fL (79-100) Mean Corpuscular Hemoglobin 24 pg (25-35) L Mean Corpuscular Hemoglobin Concent 31 g/dL (31-37) Red Cell Distribution Width 18.1 % (11.5-14.5) H Platelet Count 277 x10^3/uL (140-400) Neutrophils (%) (Auto) 84 % (31-73) H Lymphocytes (%) (Auto) 9 % (24-48) L Monocytes (%) (Auto) 7 % (0-9) Eosinophils (%) (Auto) 0 % (0-3) Basophils (%) (Auto) 1 % (0-3) Neutrophils # (Auto) 6.8 x10^3/uL (1.8-7.7) Lymphocytes # (Auto) 0.7 x10^3/uL (1.0-4.8) L Monocytes # (Auto) 0.6 x10^3/uL (0.0-1.1) Eosinophils # (Auto) 0.0 x10^3/uL (0.0-0.7) Basophils # (Auto) 0.1 x10^3/uL (0.0-0.2) Prothrombin Time 11.3 SEC (11.7-14.0) L Prothrombin Time INR 0.9 (0.8-1.1) Sodium Level 139 mmol/L (136-145) Potassium Level 3.7 mmol/L (3.5-5.1) Chloride Level 100 mmol/L (98-107) Carbon Dioxide Level 38 mmol/L (21-32) H Anion Gap 1 (6-14) L Blood Urea Nitrogen 7 mg/dL (7-20) Creatinine 0.9 mg/dL (0.6-1.0) Estimated GFR (Cockcroft-Gault) 76.0 BUN/Creatinine Ratio 8 (6-20) Glucose Level 194 mg/dL (70-99) H Calcium Level 9.5 mg/dL (8.5-10.1) Total Bilirubin 0.4 mg/dL (0.2-1.0) Aspartate Amino Transferase (AST) 15 U/L (15-37) Alanine Aminotransferase (ALT) 14 U/L (14-59) Alkaline Phosphatase 88 U/L (46-116) Troponin I Quantitative < 0.017 ng/mL (0.000-0.055) BV-Dly-P-Type Natriuretic Peptide 2657 pg/mL (0-124) H Total Protein 7.8 g/dL (6.4-8.2) Albumin 3.1 g/dL (3.4-5.0) L Albumin/Globulin Ratio 0.7 (1.0-1.7) L Urine Collection Type Unknown Urine Color Yellow Urine Clarity Clear Urine pH 8.0 Urine Specific [place] 1.015 Urine Protein Negative mg/dL (NEG-TRACE) Urine Glucose (UA) 500 mg/dL (NEG) Urine Ketones (Stick) Negative mg/dL (NEG) Urine Blood Negative (NEG) Urine Nitrite Negative (NEG) Urine Bilirubin Negative (NEG) Urine Urobilinogen Dipstick 1.0 mg/dL (0.2 mg/dL) Urine Leukocyte Esterase Negative (NEG) Urine RBC 0 /HPF (0-2) Urine WBC 0 /HPF (0-4) Urine Squamous Epithelial Cells Occ /LPF Urine Bacteria 0 /HPF (0-FEW) Urine Opiates Screen Neg (NEG) Urine Methadone Screen Neg (NEG) Urine Barbiturates Neg (NEG) Urine Phencyclidine Screen Neg (NEG) Urine Amphetamine/Methamphetamine Neg (NEG) Urine Benzodiazepines Screen Neg (NEG) Urine Cocaine Screen Neg (NEG) Urine Cannabinoids Screen Pos (NEG) Urine Ethyl Alcohol Neg (NEG) Laboratory Tests 03/02/19 15:15 Laboratory Tests 03/02/19 15:15 EKG EKG Sinus Rhythm and no STEMI[] Interpretation Time: [address] Otero Radiology/Procedures Radiology/Procedures [] Impressions: [facility] [address] [place] [address] IMAGING REPORT Signed PATIENT: GRETCHEN BONILLA EACCOUNT: [id number] : 1955 LOCATION: ER AGE: 64 SEX: F EXAM STATUS: PRE ER ORD. PHYSICIAN: LUIS A KING APRN REASON: chest pain PROCEDURE: PORTABLE CHEST 1V Examination: PORTABLE CHEST 1V History: Chest pain Comparison/Correlation: 02/14/2019 portable chest x-ray exam Findings: Portable upright frontal view of the chest was obtained. Dual-lead left-sided pacemaker is present. Sternal wires are present. Mediastinal clips noted. Cardiomegaly noted. No pneumothorax. Pulmonary vasculature is borderline. No definite pleural effusion. Pulmonary hyperinflation present. Impression: Borderline pulmonary vasculature congestion. No significant change. Electronically signed by: Amador Gutierrez MD (03/02/2019 3:35 PM) [facility] DICTATED and SIGNED BY: AMADOR GUTIERREZ MD DATE: 03/02/191534 Course & Med Decision Making Course & Med Decision Making Alert and oriented. Skin pink warm and dry. Mucus membranes are moist. She is 98% on 2L. lungs sound diminished throughout. Abdomen is soft and nontender. No extremity edema. Speaks in full clear sentences. EKG shows sinus rhythm and no STEMI. Patient denies abdominal pain, ear pain, throat pain, diarrhea, dysuria, dizziness, visual changes, weakness. Chest xray: Impression: Borderline pulmonary vasculature congestion. No significant change. BNP elevated. I spoke to Dr. Kohli for admission. He states to give the patient 40 mg of Lasix IV at this time. Patient states she did take her 80 mg of Lasix this morning and I did tell . Dragon Disclaimer Dragon Disclaimer This electronic medical record was generated, in whole or in part, using a voice recognition dictation system. The HEART Score for CP Pts HEART Score for Chest Pain: HEART Score for Chest Pain Response (Comments) Value History Moderately Suspicious 1 ECG Nonspecific Repolarizatio 1 Age >45 - < 65 1 Risk Factors >3 Risk Factors or Hx CAD 2 Troponin < Normal Limit 0 Total 5 Risk Factors: Risk Factors: DM, Current or recent (<one month) smoker, HTN, HLP, family history of CAD, obesity. Risk Scores: Score 0 - 3: 2.5% MACE over next 6 weeks - Discharge Home Score 4 - 6: 20.3% MACE over next 6 weeks - Admit for Clinical Observation Score 7 - 10: 72.7% MACE over next 6 weeks - Early Invasive Strategies Departure Departure Impression: Primary Impression: CHF exacerbation Disposition: ADMITTED INPATIENT Admitting Physician: MAGNUS Condition: STABLE Referrals: JENSEN CUEVAS (PCP) Problem Qualifiers Primary Impression: CHF exacerbation Heart failure type: unspecified Qualified Codes: I50.9 - Heart failure, unspecified LUIS A KING RAIL EQUIPMENT OPERATOR Mar 02, 2019 15:56
[2019-03-02 15:57] LABS: BILIRUBIN,URINE NEGATIVE (NEG); CLARITY,URINE CLEAR; COLOR,URINE YELLOW; NITRITE,URINE NEGATIVE (NEG); PROTEIN,URINE NEGATIVE (NEG-TRACE)
[2019-03-02 16:02] LABS: BARBITURATES NEG (NEG); BENZODIAZEPINES NEG (NEG); CANNABINOIDS POS (NEG); COCAINE NEG (NEG); METHADONE NEG (NEG); OPIATES NEG (NEG); PHENCYCLIDINE NEG (NEG)
[2019-03-02 16:03] LABS: BACTERIA,URINE 0 /HPF (0-FEW); RBC,URINE 0 /HPF (0-2); SQUAMOUS EPITHELIAL CELL,UR OCC /LPF; WBC,URINE 0 /HPF (0-4)
--- NOTE | 2019-03-02 16:03 | EKG ---
[facility] [address] [place] [address] Test Date: 2019-03-02 Test Time: 14:54:44 Pat Name: GRETCHEN BONILLA Department: Room: Gender: F Clinical Secretary: : 1955 Requested By: LUIS A KING Order Number: [id number] Reading MD: Measurements Intervals [place] Rate: 74 P: -90 OR: 108 QRS: -136 QRSD: 146 T: 71 QT: 430 QTc: 478 Interpretive Statements SINUS RHYTHM ABNORMAL RIGHT SUPERIOR AXIS DEVIATION NON SPECIFIC INTRAVENTRICULAR BLOCK RVH WITH REPOLARIZATION ABNORMALITY QRS(T) CONTOUR ABNORMALITY CONSISTENT WITH ANTEROLATERAL INFARCT AGE UNDETERMINED CONSISTENT WITH INFERIOR INFARCT POSSIBLY RECENT ABNORMAL ECG RI6.01 No previous ECG available for comparison
[2019-03-02 16:10] LABS: AMPHETAMINE/METHAMPHETAMINE NEG (NEG)
[2019-03-02] MEDS ORDERED: FUROSEMIDE 40 MG/4 ML VIAL. IVP ONE (17:00)
--- NOTE | 2019-03-02 17:02 | PDOC1 ---
History and Physical Date of Admission Date of Admission DATE: 03/02/19 TIME: 17:01 Identification/Chief Complaint Chief Complaint N/V and Chest pain Source Source: Patient History of Present Illness History of Present Illness Ms Laguna is a 64yo F w/ PMHx HTN, SSS, HLD, obesity, chronic pain syndrome, chronic systolic CHF, cor pulmonale with hypoxia on 3L NCO2 who presented with acute nausea and vomiting and abdominal pain. On further ROS she notes substernal and right sided chest pain. Notes NTG x3 today without relief and 4 baby aspirins. Patient during her pain an 8 out of 10. She also c/o a headache and wheezing. Patient states that she took a breathing treatment last night and it did help some. UDS positive for cannabinoids. CXR with increased pulmonary vascular congestion and LE edema worse. BNP was 2657. She has been admitted frequently for chest pain with [facility] 04/2018: 1. 40% stenosis involving the obtuse marginal branch of left circumflex artery without any other significant stenoses. The left internal mammary artery graft to the left anterior descending artery and the saphenous vein graft to the obtuse marginal branch were patent. Of note, patient seems to have had CABG for thrombus in left main coronary artery and left anterior descending artery in the past. No lesions were noted because the thrombus resolved. 2. Akinetic distal anterior wall and the entire apical wall with ejection fraction estimated at 40%. EKG - sinus with no STEMI. No chest pain. She c/o RLQ abdominal pain and nausea, no further vomiting. She has missed GI f/u outpatient and has some difficulty with compliance. Admitted for further treatment. Past Medical History Cardiovascular: CAD, CHF, HTN, [place], Hyperlipidemia, Other Pulmonary: Bronchitis, COPD CENTRAL NERVOUS SYSTEM: Periperal neuropathy GI: GERD Heme/Onc: No pertinent hx Hepatobiliary: Cholelithiasis Psych: No pertinent hx Musculoskeletal: Osteoarthritis, Weakness Rheumatologic: No pertinent hx Infectious disease: No pertinent hx Renal/: Chronic renal insuff Endocrine: Diabetes Past Surgical History Past Surgical History: Pacemaker, Appendectomy, Cholecystectomy, CABG, Total knee replacement, Hysterectomy Family History Family History: Heart Disease Family History: Parent Social History Smoke: No ALCOHOL: none Drugs: Marijuana Current Medications Current Medications Current Medications Albuterol/ Ipratropium (Duoneb) 3 ml 1X ONCE NEB Last administered on 03/02/19at 15:48; Start 03/02/19 at 15:30; Stop 03/02/19 at 15:31; Status DC Methylprednisolone Sodium Succinate (SOLU-Medrol 125MG VIAL) 125 mg 1X ONCE IV Last administered on 03/02/19at 16:14; Start 03/02/19 at 15:30; Stop 03/02/19 at 15:31; Status DC Ondansetron HCl (Zofran) 4 mg 1X ONCE IV Last administered on 03/02/19at 16:15; Start 03/02/19 at 15:45; Stop 03/02/19 at 15:47; Status DC Morphine Sulfate (Morphine Sulfate) 2 mg 1X ONCE IV Last administered on 03/02/19at 16:15; Start 03/02/19 at 15:45; Stop 03/02/19 at 15:47; Status DC Furosemide (Lasix) 40 mg 1X ONCE IVP ; Start 03/02/19 at 17:00; Stop 03/02/19 at 17:01; Status UNV Active Scripts Active Feosol (Ferrous Sulfate) 325 Mg Tablet 325 Mg PO DAILYWBKFT 30 Days Ventolin Hfa Inhaler (Albuterol Sulfate) 18 Gm Hfa.aer.ad 2 Puff INH Q4HRS Protonix (Pantoprazole Sodium) 40 Mg Tablet.dr 40 Mg PO DAILYAC 60 Days Percocet 10-325 Mg Tablet (Oxycodone/Acetaminophen) 1 Each Tablet 2 Tab PO PRN Q4-6HRS PRN MDD 1 Clopidogrel (Clopidogrel Bisulfate) 75 Mg Tablet 75 Mg PO DAILYWBKFT Ondansetron Odt (Ondansetron) 4 Mg Tab.rapdis 1 Tab PO PRN Q6-8HRS Proair Hfa Inhaler (Albuterol Sulfate) 8.5 Gm Hfa.aer.ad 1 Puff INH PRN Q6HRS PRN Amaryl (Glimepiride) 2 Mg Tablet 2 Mg PO DAILY 30 Days Reported Losartan Potassium 100 Mg Tablet 100 Mg PO DAILY Calcium Carbonate 500 Mg Tablet 1 Tab PO BID 30 Days Amlodipine Besylate 5 Mg Tablet 5 Mg PO DAILY Docusate Sodium 100 Mg Capsule 1 Cap PO BID Metoprolol Tartrate 25 Mg Tablet 25 Mg PO BID Capsaicin 60 Gm Cream..g. 60 Gm TP PRN TID apply to morgan feet Calcium 500 + Vit D 200 Caplet (Calcium Carbonate/Vitamin D3) 1 Each Tablet 1 Each PO DAILY Zolpidem Tartrate 5 Mg Tablet 5 Mg PO QHS Clonazepam (Clonazepam) 0.5 Mg Tablet 0.5 Mg PO TID Fluoxetine Hcl 20 Mg Capsule 1 Cap PO DAILY Furosemide 80 Mg Tablet 80 Mg PO BID Albuterol Sulfate Conc Neb Soln (Albuterol Sulfate) 2.5 Mg/0.5 Ml Vial.neb 5 Mg NEB PRN PRN NITROGLYCERIN SubLingual (Nitroglycerin) 0.4 Mg Tab.subl 0.4 Mg SL PRN Q5MIN PRN Atorvastatin Calcium 20 Mg Tablet 20 Mg PO HS Aspir 81 (Aspirin) 81 Mg Tablet.dr 1 Tab PO DAILY Allergies Allergies: Coded Allergies: ibuprofen (Verified Adverse Reaction, Intermediate, Nausea and Vomiting, 12/02/17) ROS General: YES: Fatigue, Malaise; No: Chills, Night Sweats, Appetite, Other PSYCHOLOGICAL ROS: YES: Anxiety, Depression; No: Behavioral Disorder, Concentration difficultie, Decreased libido, Disorientation, Hallucinations, Hostility, Irritablity, Memory difficulties, Mood Swings, Obsessive thoughts, Physical abuse, Sexual abuse, Sleep disturbances, Suicidal ideation, Other Eyes: No Blurry vision, No Decreased vision, No Double vision, No Dry eyes, No Excessive tearing, No Eye Pain, No Itchy Eyes, No Loss of vision, No Photophobia, No Scotomata, No Uses contacts, No Uses glasses, No Other HEENT: YES: Heacaches; No: Visual Changes, Hearing change, Nasal congestion, Nasal discharge, Oral lesions, Sinus pain, Sore Throat, Epistaxis, Sneezing, Snoring, Tinnitus, Vertigo, Vocal changes, Other ALLERGY AND IMMUNOLOGY: No: Hives, Insect Bite Sensitivity, Itchy/Watery Eyes, Nasal Congestion, Post Nasal Drip, Seasonal Allergies, Other Hematological and Lymphatic: No: Bleeding Problems, Blood Clots, Blood Transfusions, Brusing, Night Sweats, Pallor, Swollen Lymph Nodes, Other ENDOCRINE: No: Breast Changes, Galactorrhea, Hair Pattern Changes, Hot Flashes, Malaise/lethargy, Mood Swings, Palpitations, Polydipsia/polyuria, Skin Changes, Temperature Intolerance, Unexpected Weight Changes, Other Breast: No New/Changing Breast Lumps, No Nipple changes, No Nipple discharge, No Other Respiratory: YES: Cough, Shortness of breath, SOB with excertion; No: Hemoptysis, Orthopnea, Pleuritic Pain, Sputum Changes, Stridor, Tachypnea, Wheezing, Other Cardiovascular: yes Chest Pain, yes Orthopnea, yes Paroxysmal Noc. Dyspnea, yes Edema; No Palpitations, No Lt Headedness, No Other Gastrointestinal: Yes Nausea, Yes Vomiting, Yes Abdominal Pain; No Diarrhea, No Constipation, No Melena, No Hematochezia, No Other Genitourinary: No Dysuria, No Frequency, No Incontinence, No Hematuria, No Retention, No Discharge, No Urgency, No Pain, No Flank Pain, No Other, No , No , No , No , No , No , No Musculoskeletal: No Gait Disturbance, No Joint Pain, No Joint Stiffness, No Joint Swelling, No Muscle Pain, No Muscular Weakness, No Pain In:, No Swelling In:, No Other Neurological: No Behavorial Changes, No Bowel/Bladder ControlChng, No Con fusion, No Dizziness, No Gait Disturbance, No Headaches, No Impaired Coord/balance, No Memory Loss, No Numbness/Tingling, No Seizures, No Speech Problems, No Tremors, No Visual Changes, No Weakness, No Other Skin: No Dry Skin, No Eczema, No Hair Changes, No Lumps, No Mole Changes, No Mottling, No Nail Changes, No Pruritus, No Rash, No Skin Lesion Changes, No O ther, No Acne Physical Exam General: Alert, Oriented X3, Cooperative, mild distress HEENT: Atraumatic, PERRLA, EOMI, Mucous membr. moist/pink Lungs: Other (Scattered wheezing) Heart: S1S2, RRR, no thrills, no rubs Abdomen: Normal bowel sounds, Soft, No hepatosplenomegaly, No masses, Other (epigastrium tender slightly) Rectal Exam: not examined Extremities: No clubbing, No cyanosis, Normal pulses, No tenderness/swelling, Other (2+ edema) Skin: No rashes, No breakdown, No significant lesion Neuro: Normal gait, Normal speech, Strength at 5/5 X4 ext, Normal tone, Sensation intact, Cranial nerves 3-12 NL, Reflexes 2+ Psych/Mental Status: Mental status NL, Mood NL Vitals Vitals Vital Signs Date Time Temp Pulse Resp B/P (MAP) Pulse Ox O2 Delivery O2 Flow Rate FiO2 03/02/19 16:15 19 100 Nasal Cannula 2.0 03/02/19 14:50 98.2 75 189/89 (122) 98.2 Labs Labs Laboratory Tests Test 03/02/19 15:15 03/02/19 15:48 White Blood Count 8.1 x10^3/uL (4.0-11.0) Red Blood Count 4.04 x10^6/uL (3.50-5.40) Hemoglobin 9.9 g/dL (12.0-15.5) Hematocrit 31.8 % (36.0-47.0) Mean Corpuscular Volume 79 fL (79-100) Mean Corpuscular Hemoglobin 24 pg (25-35) Mean Corpuscular Hemoglobin Concent 31 g/dL (31-37) Red Cell Distribution Width 18.1 % (11.5-14.5) Platelet Count 277 x10^3/uL (140-400) Neutrophils (%) (Auto) 84 % (31-73) Lymphocytes (%) (Auto) 9 % (24-48) Monocytes (%) (Auto) 7 % (0-9) Eosinophils (%) (Auto) 0 % (0-3) Basophils (%) (Auto) 1 % (0-3) Neutrophils # (Auto) 6.8 x10^3/uL (1.8-7.7) Lymphocytes # (Auto) 0.7 x10^3/uL (1.0-4.8) Monocytes # (Auto) 0.6 x10^3/uL (0.0-1.1) Eosinophils # (Auto) 0.0 x10^3/uL (0.0-0.7) Basophils # (Auto) 0.1 x10^3/uL (0.0-0.2) Prothrombin Time 11.3 SEC (11.7-14.0) Prothromb Time International Ratio 0.9 (0.8-1.1) Sodium Level 139 mmol/L (136-145) Potassium Level 3.7 mmol/L (3.5-5.1) Chloride Level 100 mmol/L (98-107) Carbon Dioxide Level 38 mmol/L (21-32) Anion Gap 1 (6-14) Blood Urea Nitrogen 7 mg/dL (7-20) Creatinine 0.9 mg/dL (0.6-1.0) Estimated GFR (Cockcroft-Gault) 76.0 BUN/Creatinine Ratio 8 (6-20) Glucose Level 194 mg/dL (70-99) Calcium Level 9.5 mg/dL (8.5-10.1) Total Bilirubin 0.4 mg/dL (0.2-1.0) Aspartate Amino Transf (AST/SGOT) 15 U/L (15-37) Alanine Aminotransferase (ALT/SGPT) 14 U/L (14-59) Alkaline Phosphatase 88 U/L (46-116) Troponin I Quantitative < 0.017 ng/mL (0.000-0.055) VN-Sxa-Y-Type Natriuretic Peptide 2657 pg/mL (0-124) Total Protein 7.8 g/dL (6.4-8.2) Albumin 3.1 g/dL (3.4-5.0) Albumin/Globulin Ratio 0.7 (1.0-1.7) Urine Collection Type Unknown Urine Color Yellow Urine Clarity Clear Urine pH 8.0 Urine Specific [place] 1.015 Urine Protein Negative mg/dL (NEG-TRACE) Urine Glucose (UA) 500 mg/dL (NEG) Urine Ketones (Stick) Negative mg/dL (NEG) Urine Blood Negative (NEG) Urine Nitrite Negative (NEG) Urine Bilirubin Negative (NEG) Urine Urobilinogen Dipstick 1.0 mg/dL (0.2 mg/dL) Urine Leukocyte Esterase Negative (NEG) Urine RBC 0 /HPF (0-2) Urine WBC 0 /HPF (0-4) Urine Squamous Epithelial Cells Occ /LPF Urine Bacteria 0 /HPF (0-FEW) Urine Opiates Screen Neg (NEG) Urine Methadone Screen Neg (NEG) Urine Barbiturates Neg (NEG) Urine Phencyclidine Screen Neg (NEG) Urine Amphetamine/Methamphetamine Neg (NEG) Urine Benzodiazepines Screen Neg (NEG) Urine Cocaine Screen Neg (NEG) Urine Cannabinoids Screen Pos (NEG) Urine Ethyl Alcohol Neg (NEG) Laboratory Tests Test 03/02/19 15:15 03/02/19 15:48 White Blood Count 8.1 x10^3/uL (4.0-11.0) Red Blood Count 4.04 x10^6/uL (3.50-5.40) Hemoglobin 9.9 g/dL (12.0-15.5) Hematocrit 31.8 % (36.0-47.0) Mean Corpuscular Volume 79 fL (79-100) Mean Corpuscular Hemoglobin 24 pg (25-35) Mean Corpuscular Hemoglobin Concent 31 g/dL (31-37) Red Cell Distribution Width 18.1 % (11.5-14.5) Platelet Count 277 x10^3/uL (140-400) Neutrophils (%) (Auto) 84 % (31-73) Lymphocytes (%) (Auto) 9 % (24-48) Monocytes (%) (Auto) 7 % (0-9) Eosinophils (%) (Auto) 0 % (0-3) Basophils (%) (Auto) 1 % (0-3) Neutrophils # (Auto) 6.8 x10^3/uL (1.8-7.7) Lymphocytes # (Auto) 0.7 x10^3/uL (1.0-4.8) Monocytes # (Auto) 0.6 x10^3/uL (0.0-1.1) Eosinophils # (Auto) 0.0 x10^3/uL (0.0-0.7) Basophils # (Auto) 0.1 x10^3/uL (0.0-0.2) Prothrombin Time 11.3 SEC (11.7-14.0) Prothromb Time International Ratio 0.9 (0.8-1.1) Sodium Level 139 mmol/L (136-145) Potassium Level 3.7 mmol/L (3.5-5.1) Chloride Level 100 mmol/L (98-107) Carbon Dioxide Level 38 mmol/L (21-32) Anion Gap 1 (6-14) Blood Urea Nitrogen 7 mg/dL (7-20) Creatinine 0.9 mg/dL (0.6-1.0) Estimated GFR (Cockcroft-Gault) 76.0 BUN/Creatinine Ratio 8 (6-20) Glucose Level 194 mg/dL (70-99) Calcium Level 9.5 mg/dL (8.5-10.1) Total Bilirubin 0.4 mg/dL (0.2-1.0) Aspartate Amino Transf (AST/SGOT) 15 U/L (15-37) Alanine Aminotransferase (ALT/SGPT) 14 U/L (14-59) Alkaline Phosphatase 88 U/L (46-116) Troponin I Quantitative < 0.017 ng/mL (0.000-0.055) IA-Lvt-O-Type Natriuretic Peptide 2657 pg/mL (0-124) Total Protein 7.8 g/dL (6.4-8.2) Albumin 3.1 g/dL (3.4-5.0) Albumin/Globulin Ratio 0.7 (1.0-1.7) Urine Collection Type Unknown Urine Color Yellow Urine Clarity Clear Urine pH 8.0 Urine Specific [place] 1.015 Urine Protein Negative mg/dL (NEG-TRACE) Urine Glucose (UA) 500 mg/dL (NEG) Urine Ketones (Stick) Negative mg/dL (NEG) Urine Blood Negative (NEG) Urine Nitrite Negative (NEG) Urine Bilirubin Negative (NEG) Urine Urobilinogen Dipstick 1.0 mg/dL (0.2 mg/dL) Urine Leukocyte Esterase Negative (NEG) Urine RBC 0 /HPF (0-2) Urine WBC 0 /HPF (0-4) Urine Squamous Epithelial Cells Occ /LPF Urine Bacteria 0 /HPF (0-FEW) Urine Opiates Screen Neg (NEG) Urine Methadone Screen Neg (NEG) Urine Barbiturates Neg (NEG) Urine Phencyclidine Screen Neg (NEG) Urine Amphetamine/Methamphetamine Neg (NEG) Urine Benzodiazepines Screen Neg (NEG) Urine Cocaine Screen Neg (NEG) Urine Cannabinoids Screen Pos (NEG) Urine Ethyl Alcohol Neg (NEG) Images Images CXR - Dual-lead left-sided pacemaker is present. Sternal wires are present. Mediastinal clips noted. Cardiomegaly noted. No pneumothorax. Pulmonary vasculature is borderline. No definite pleural effusion. Pulmonary hyperinflation present. Impression: Borderline pulmonary vasculature congestion. No significant change. VTE Prophylaxis Ordered VTE Prophylaxis Devices: No VTE Pharmacological Prophylaxi: Yes Assessment/Plan Assessment/Plan A/P: Intractable abdominal pain with nausea and vomiting. IV anti-emetics. 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 I have counseled endlessly on this Chest pain - likely demand from acute CHF vs referred GI pain. Will maintain telemetry and trend troponins given her high risk and frequent hospitalizations Accelerated Hypertension - not currently controlled SSS s/p PPM - Stable Hyperlipidemia - Continue statin therapy Chronic stable angina Acute heart failure - systolic - Lasix x1 in ED, will place on IV lasix, daily BMP and Mag leve Akinetic distal anterior wall and the entire apical wall with ejection fraction estimated at 40%.per cath 05/12 Morbid obesity Diabetes type 2 - will repeat A1c. Sliding scale GERD - cont PPI CAD WITH HX STENTS - recent cardiac catheterization 04/2018 showed patent GARCIA to LAD and patent SVG to OM. . No further cardiac workup is indicated FEN - ADA cardiac diet PPX - lovenox FULL CODE Dispo - inpatient VENKAT ALEJANDRO MD Mar 02, 2019 17:02
[2019-03-02] MEDS ORDERED: ONDANSETRON PF 4 MG/2 ML VIAL. IV PRN ×2 (17:15→20:00)
[2019-03-02] MEDS ORDERED: ACETAMINOPHEN 325 MG TABLET. PO PRN (17:15)
[2019-03-02] MEDS: MORPHINE SULFATE 2 MG/ML VIAL. IV PRN ×2 (17:38→21:05)
[2019-03-02 19:30] VITALS: BP 171/73
--- NOTE | 2019-03-02 19:45 | NUR ---
The patient, GRETCHEN BONILLA, 64 y/o, F admitted by VENKAT ALEJANDRO MD, was given written information regarding hospital policies, unit procedures and contact persons. Valuables were checked and left in room with patient. Vitals stable, call light in reach, will continue to monitor
[2019-03-02] MEDS ORDERED: NITROGLYCERIN SUBLINGUAL 0.4 MG BOTTLE OF 25. SL PRN (20:00)
[2019-03-02] MEDS ORDERED: ALBUTEROL SULFATE 2.5 MG/3 ML NEBU. INH PRN (20:00)
[2019-03-02] MEDS ORDERED: ZOLPIDEM 5 MG TABLET. PO PRN (20:00)
[2019-03-02] MEDS ORDERED: ONDANSETRON ODT 4 MG TAB.RAPDIS. PO PRN (20:00)
[2019-03-02] MEDS ORDERED: clonazePAM 0.5 MG TABLET PO PRN (20:00)
[2019-03-02] MEDS: IPRATRPIUM/ALBUTEROL 0.5/2.5MG 3 ML NEBU. NEB SCH (20:19)
[2019-03-02] MEDS ORDERED: CALCIUM CARBONATE 500 MG TABLET PO SCH (21:00)
[2019-03-02] MEDS: ENOXAPARIN 40 MG/0.4 ML SYRINGE. SQ SCH (21:05)
[2019-03-02] MEDS: ATORVASTATIN CALCIUM 20 MG TABLET PO SCH (21:05)
[2019-03-02] MEDS: DOCUSATE SODIUM 100 MG CAPSULE. PO SCH (21:05)
[2019-03-02] MEDS: METOPROLOL TART IMMED RELEASE 25 MG TABLET. PO SCH (21:05)
[2019-03-02 23:00] VITALS: BP 164/73
[2019-03-03] VITALS (7 sets, daily range): BP systolic 155–183; BP diastolic 46–78
[2019-03-03] MEDS: MORPHINE SULFATE 2 MG/ML VIAL. IV PRN ×2 (00:57→05:12)
[2019-03-03 07:51] LABS: ALBUMIN/GLOBULIN RATIO 0.6 (1.0-1.7); CALCIUM 9.5 mg/dL (8.5-10.1); CREATININE 0.8 mg/dL (0.6-1.0); GFR 87.1; MAGNESIUM 2.2 mg/dL (1.8-2.4); TOTAL BILIRUBIN 0.3 mg/dL (0.2-1.0); TOTAL PROTEIN 7.7 g/dL (6.4-8.2)
[2019-03-03] MEDS: IPRATRPIUM/ALBUTEROL 0.5/2.5MG 3 ML NEBU. NEB SCH ×4 (08:24→19:46)
[2019-03-03] MEDS: CLOPIDOGREL BISULFATE 75 MG TABLET PO SCH (09:04)
[2019-03-03] MEDS: CALCIUM CARB/VIT D3 500/200 TABLET. PO SCH (09:04)
[2019-03-03] MEDS: METOPROLOL TART IMMED RELEASE 25 MG TABLET. PO SCH ×2 (09:04→21:15)
[2019-03-03] MEDS: PANTOPRAZOLE 40 MG TABLET.DR. PO SCH (09:04)
[2019-03-03] MEDS: DOCUSATE SODIUM 100 MG CAPSULE. PO SCH ×2 (09:04→21:14)
[2019-03-03] MEDS: ASPIRIN ENTERIC COATED 81 MG TABLET.DR. PO SCH (09:04)
[2019-03-03] MEDS: GLIMEPIRIDE 2 MG TABLET. PO SCH (09:05)
[2019-03-03] MEDS: FERROUS SULFATE 325 MG TABLET. PO SCH (09:05)
[2019-03-03] MEDS: LOSARTAN POTASSIUM 50 MG TABLET. PO SCH (09:06)
[2019-03-03] MEDS: amLODIPine BESYLATE 5 MG TABLET PO SCH (09:06)
[2019-03-03] MEDS: FUROSEMIDE 40 MG/4 ML VIAL. IVP SCH (09:06)
[2019-03-03] MEDS ORDERED: oxyCODONE/APAP 10/325 1 TAB TABLET PO PRN (10:00)
[2019-03-03] MEDS: FLUoxetine HCL 20 MG CAPSULE PO SCH (10:19)
[2019-03-03] MEDS: CAPSAICIN 0.025% TOPICAL CREAM 60GM TUBE. TP PRN ×3 (10:19→21:14)
--- NOTE | 2019-03-03 11:32 | NUR ---
SS following for discharge planning. SS reviewed pt chart. Pt is from home and is currently requiring oxygen. Pt was previously on services with [facility], ; fax [phone], but has since been fired from there services and is currently on a do not readmit list. SS will continue to follow for discharge planning.
--- NOTE | 2019-03-03 12:07 | PDOC ---
REDDY MARTINEZ [employer] TEAM MEMBER 03/03/19 1207: CARDIO Progress Notes Date and Time Date of Service 03/03/2019 Time of Evaluation 1130 Subjective Subjective: No Chest Pain, No shortness of breath, No Palpitations, Other (feel better today) Vitals Vitals Vital Signs Date Time Temp Pulse Resp B/P (MAP) Pulse Ox O2 Delivery O2 Flow Rate FiO2 03/03/19 10:26 97.8 82 18 175/74 (107) 90 97.8 03/03/19 08:25 Nasal Cannula 1.0 Weight Weight [ ] Input and Output Intake and Output Intake and Output 03/03/19 07:00 # Voids 2 Laboratory Labs Laboratory Tests Test 03/02/19 15:15 03/02/19 15:48 03/02/19 20:25 03/03/19 06:49 White Blood Count 8.1 x10^3/uL (4.0-11.0) Red Blood Count 4.04 x10^6/uL (3.50-5.40) Hemoglobin 9.9 g/dL (12.0-15.5) Hematocrit 31.8 % (36.0-47.0) Mean Corpuscular Volume 79 fL (79-100) Mean Corpuscular Hemoglobin 24 pg (25-35) Mean Corpuscular Hemoglobin Concent 31 g/dL (31-37) Red Cell Distribution Width 18.1 % (11.5-14.5) Platelet Count 277 x10^3/uL (140-400) Neutrophils (%) (Auto) 84 % (31-73) Lymphocytes (%) (Auto) 9 % (24-48) Monocytes (%) (Auto) 7 % (0-9) Eosinophils (%) (Auto) 0 % (0-3) Basophils (%) (Auto) 1 % (0-3) Neutrophils # (Auto) 6.8 x10^3/uL (1.8-7.7) Lymphocytes # (Auto) 0.7 x10^3/uL (1.0-4.8) Monocytes # (Auto) 0.6 x10^3/uL (0.0-1.1) Eosinophils # (Auto) 0.0 x10^3/uL (0.0-0.7) Basophils # (Auto) 0.1 x10^3/uL (0.0-0.2) Prothrombin Time 11.3 SEC (11.7-14.0) Prothromb Time International Ratio 0.9 (0.8-1.1) Sodium Level 139 mmol/L (136-145) 140 mmol/L (136-145) Potassium Level 3.7 mmol/L (3.5-5.1) 4.0 mmol/L (3.5-5.1) Chloride Level 100 mmol/L (98-107) 99 mmol/L (98-107) Carbon Dioxide Level 38 mmol/L (21-32) 36 mmol/L (21-32) Anion Gap 1 (6-14) 5 (6-14) Blood Urea Nitrogen 7 mg/dL (7-20) 13 mg/dL (7-20) Creatinine 0.9 mg/dL (0.6-1.0) 0.8 mg/dL (0.6-1.0) Estimated GFR (Cockcroft-Gault) 76.0 87.1 BUN/Creatinine Ratio 8 (6-20) 16 (6-20) Glucose Level 194 mg/dL (70-99) 228 mg/dL (70-99) Calcium Level 9.5 mg/dL (8.5-10.1) 9.5 mg/dL (8.5-10.1) Total Bilirubin 0.4 mg/dL (0.2-1.0) 0.3 mg/dL (0.2-1.0) Aspartate Amino Transf (AST/SGOT) 15 U/L (15-37) 10 U/L (15-37) Alanine Aminotransferase (ALT/SGPT) 14 U/L (14-59) 11 U/L (14-59) Alkaline Phosphatase 88 U/L (46-116) 83 U/L (46-116) Troponin I Quantitative < 0.017 ng/mL (0.000-0.055) < 0.017 ng/mL (0.000-0.055) AI-Nam-P-Type Natriuretic Peptide 2657 pg/mL (0-124) Total Protein 7.8 g/dL (6.4-8.2) 7.7 g/dL (6.4-8.2) Albumin 3.1 g/dL (3.4-5.0) 3.0 g/dL (3.4-5.0) Albumin/Globulin Ratio 0.7 (1.0-1.7) 0.6 (1.0-1.7) Urine Collection Type Unknown Urine Color Yellow Urine Clarity Clear Urine pH 8.0 Urine Specific [place] 1.015 Urine Protein Negative mg/dL (NEG-TRACE) Urine Glucose (UA) 500 mg/dL (NEG) Urine Ketones (Stick) Negative mg/dL (NEG) Urine Blood Negative (NEG) Urine Nitrite Negative (NEG) Urine Bilirubin Negative (NEG) Urine Urobilinogen Dipstick 1.0 mg/dL (0.2 mg/dL) Urine Leukocyte Esterase Negative (NEG) Urine RBC 0 /HPF (0-2) Urine WBC 0 /HPF (0-4) Urine Squamous Epithelial Cells Occ /LPF Urine Bacteria 0 /HPF (0-FEW) Urine Opiates Screen Neg (NEG) Urine Methadone Screen Neg (NEG) Urine Barbiturates Neg (NEG) Urine Phencyclidine Screen Neg (NEG) Urine Amphetamine/Methamphetamine Neg (NEG) Urine Benzodiazepines Screen Neg (NEG) Urine Cocaine Screen Neg (NEG) Urine Cannabinoids Screen Pos (NEG) Urine Ethyl Alcohol Neg (NEG) Magnesium Level 2.2 mg/dL (1.8-2.4) Physical Exam HEENT: Neck Supple W Full Motion Chest: Symmetric LUNGS: Other (basilar crackles) Heart: S1S2, RRR (paced) Abdomen: Soft N/T Extremities: No Calf Tenderness Neurology: alert, oriented, follow commands Assessment Assessment HPI: This is a 64 yo female admitted for complains of SOA and chest pain. She is well known to our group. She had abdominal pain with nausea and vomiting and afterwards started having some cough and sharp right chest pain. Also with some SOA. Consult is for CHF. Negative for orthopnea or significant peripheral edema. Complained of some low grade fever but nonproductive cough. Denies high salt diet and has been compliant with her medications including her lasix. She has not been feeling well. She is also due for VIOLETTA workup. 1. Mild acute on chronic diastolic CHF: likely precipitated uncontrolled HTN 2. CAD s/p CABG. EF nml, clinically stable 3. HTN urgency: possibly missed meds with her n/v and abd pain 4. SSS/PPM in situ: [facility]. Paced rhythm, 5. HLP: statin 6. Diabetes, II; no associated hypoglycemia. 7. Presyncope: possibly vagal episode in relation to nausea. 8. Chronic RBBB 9. Morbid obesity: poor endurance due to inability to exercise, obesity and significant LE OA. 10. Atypical CP: suspect GI with recent abd pain and n/v 11. Suspect VIOLETTA: outpt w/u pending 12. Marijuana use Recommendations 1. Continue with secondary prevention measures. Restart home BP meds. 2. x1 lasix IV given in ED. Continue home lasix therapy unless pt has gross vomiting. 3. Marijuana cessation. Flu test 4. No further cardiac workup MISBAH HUFFMAN MD 03/03/19 1613: CARDIO Progress Notes Assessment Assessment Patient seen and examined. Agree with MEDICAL TRANSCRIPTIONIST's assessment and plan. Mild acute on chronic diastolic heart failure probably precipitated by accelerated hypertension, clinically better compensated after diuresis Blood pressure better controlled since admission Chest pain with atypical features. Patient has had recurrent admissions for similar chest pain. Recent cardiac catheterization did not show any lesions needing intervention Continue current medical regimen REDDY MARTINEZ APRN Mar 03, 2019 12:07 MISBAH HUFFMAN MD Mar 03, 2019 16:13
--- NOTE | 2019-03-03 14:08 | PDOC ---
PROGRESS NOTES Chief Complaint Chief Complaint A/P: Intractable abdominal pain with nausea and vomiting. IV anti-emetics. 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 I have counseled endlessly on this Chest pain - likely demand from acute CHF vs referred GI pain. Will maintain telemetry and trend troponins given her high risk and frequent hospitalizations Accelerated Hypertension - not currently controlled SSS s/p PPM - Stable Hyperlipidemia - Continue statin therapy Chronic stable angina Acute heart failure - systolic - Lasix x1 in ED, will place on IV lasix, daily BMP and Mag levels Akinetic distal anterior wall and the entire apical wall with ejection fraction estimated at 40%.per cath 05/12 Morbid obesity Diabetes type 2 - will repeat A1c. Sliding scale GERD - cont PPI CAD WITH HX STENTS - recent cardiac catheterization 04/2018 showed patent GARCIA to LAD and patent SVG to OM. . No further cardiac workup is indicated FEN - ADA cardiac diet PPX - lovenox FULL CODE Dispo - inpatient History of Present Illness History of Present Illness Ms Laguna is a 64yo F w/ PMHx HTN, SSS, HLD, obesity, chronic pain syndrome, chronic systolic CHF, cor pulmonale with hypoxia on 3L NCO2 who pres ented with acute nausea and vomiting and abdominal pain. On further ROS she notes substernal and right sided chest pain. Notes NTG x3 today without relief and 4 baby aspirins. Patient during her pain an 8 out of 10. She also c/o a headache and wheezing. Patient states that she took a breathing treatment last night and it did help some. UDS positive for cannabinoids. CXR with increased pulmonary vascular congestion and LE edema worse. BNP was 2657. She has been admitted frequently for chest pain with [facility] 04/2018: 1. 40% stenosis involving the obtuse marginal branch of left circumflex artery without any other significant stenoses. The left internal mammary artery graft to the left anterior descending artery and the saphenous vein graft to the obtuse marginal branch were patent. Of note, patient seems to have had CABG for thrombus in left main coronary artery and left anterior descending artery in the past. No lesions were noted because the thrombus resolved. 2. Akinetic distal anterior wall and the entire apical wall with ejection fraction estimated at 40%. EKG - sinus with no STEMI. No chest pain. She c/o RLQ abdominal pain and nausea, no further vomiting. She has missed GI f/u outpatient and has some difficulty with compliance. Admitted for further treatment. Overnight feeling some right flank pain. Short of breath, but slightly improved. Nausea improved. She still cannot move very far. Seen by cardiology. Vitals Vitals Vital Signs Date Time Temp Pulse Resp B/P (MAP) Pulse Ox O2 Delivery O2 Flow Rate FiO2 03/03/19 12: 60 18 162/70 (100) 03/03/19 10:26 97.8 90 97.8 03/03/19 08:25 Nasal Cannula 1.0 Physical Exam General: Alert, Oriented X3, Cooperative, mild distress Lungs: Clear, Other Abdomen: Normal bowel sounds, Soft, No hepatosplenomegaly, No masses, Other (epigastrium tender slightly) Extremities: No clubbing, No cyanosis, Normal pulses, No tenderness/swelling, Other (2+ edema) Skin: No rashes, No breakdown, No significant lesion Labs LABS Laboratory Tests Test 03/02/19 15:15 03/02/19 15:48 03/02/19 20:25 03/03/19 06:49 White Blood Count 8.1 x10^3/uL (4.0-11.0) Red Blood Count 4.04 x10^6/uL (3.50-5.40) Hemoglobin 9.9 g/dL (12.0-15.5) Hematocrit 31.8 % (36.0-47.0) Mean Corpuscular Volume 79 fL (79-100) Mean Corpuscular Hemoglobin 24 pg (25-35) Mean Corpuscular Hemoglobin Concent 31 g/dL (31-37) Red Cell Distribution Width 18.1 % (11.5-14.5) Platelet Count 277 x10^3/uL (140-400) Neutrophils (%) (Auto) 84 % (31-73) Lymphocytes (%) (Auto) 9 % (24-48) Monocytes (%) (Auto) 7 % (0-9) Eosinophils (%) (Auto) 0 % (0-3) Basophils (%) (Auto) 1 % (0-3) Neutrophils # (Auto) 6.8 x10^3/uL (1.8-7.7) Lymphocytes # (Auto) 0.7 x10^3/uL (1.0-4.8) Monocytes # (Auto) 0.6 x10^3/uL (0.0-1.1) Eosinophils # (Auto) 0.0 x10^3/uL (0.0-0.7) Basophils # (Auto) 0.1 x10^3/uL (0.0-0.2) Prothrombin Time 11.3 SEC (11.7-14.0) Prothromb Time International Ratio 0.9 (0.8-1.1) Sodium Level 139 mmol/L (136-145) 140 mmol/L (136-145) Potassium Level 3.7 mmol/L (3.5-5.1) 4.0 mmol/L (3.5-5.1) Chloride Level 100 mmol/L (98-107) 99 mmol/L (98-107) Carbon Dioxide Level 38 mmol/L (21-32) 36 mmol/L (21-32) Anion Gap 1 (6-14) 5 (6-14) Blood Urea Nitrogen 7 mg/dL (7-20) 13 mg/dL (7-20) Creatinine 0.9 mg/dL (0.6-1.0) 0.8 mg/dL (0.6-1.0) Estimated GFR (Cockcroft-Gault) 76.0 87.1 BUN/Creatinine Ratio 8 (6-20) 16 (6-20) Glucose Level 194 mg/dL (70-99) 228 mg/dL (70-99) Calcium Level 9.5 mg/dL (8.5-10.1) 9.5 mg/dL (8.5-10.1) Total Bilirubin 0.4 mg/dL (0.2-1.0) 0.3 mg/dL (0.2-1.0) Aspartate Amino Transf (AST/SGOT) 15 U/L (15-37) 10 U/L (15-37) Alanine Aminotransferase (ALT/SGPT) 14 U/L (14-59) 11 U/L (14-59) Alkaline Phosphatase 88 U/L (46-116) 83 U/L (46-116) Troponin I Quantitative < 0.017 ng/mL (0.000-0.055) < 0.017 ng/mL (0.000-0.055) FU-Hcw-T-Type Natriuretic Peptide 2657 pg/mL (0-124) Total Protein 7.8 g/dL (6.4-8.2) 7.7 g/dL (6.4-8.2) Albumin 3.1 g/dL (3.4-5.0) 3.0 g/dL (3.4-5.0) Albumin/Globulin Ratio 0.7 (1.0-1.7) 0.6 (1.0-1.7) Urine Collection Type Unknown Urine Color Yellow Urine Clarity Clear Urine pH 8.0 Urine Specific [place] 1.015 Urine Protein Negative mg/dL (NEG-TRACE) Urine Glucose (UA) 500 mg/dL (NEG) Urine Ketones (Stick) Negative mg/dL (NEG) Urine Blood Negative (NEG) Urine Nitrite Negative (NEG) Urine Bilirubin Negative (NEG) Urine Urobilinogen Dipstick 1.0 mg/dL (0.2 mg/dL) Urine Leukocyte Esterase Negative (NEG) Urine RBC 0 /HPF (0-2) Urine WBC 0 /HPF (0-4) Urine Squamous Epithelial Cells Occ /LPF Urine Bacteria 0 /HPF (0-FEW) Urine Opiates Screen Neg (NEG) Urine Methadone Screen Neg (NEG) Urine Barbiturates Neg (NEG) Urine Phencyclidine Screen Neg (NEG) Urine Amphetamine/Methamphetamine Neg (NEG) Urine Benzodiazepines Screen Neg (NEG) Urine Cocaine Screen Neg (NEG) Urine Cannabinoids Screen Pos (NEG) Urine Ethyl Alcohol Neg (NEG) Magnesium Level 2.2 mg/dL (1.8-2.4) Test 03/03/19 12:38 Glucose (Fingerstick) 152 mg/dL (70-99) Comment Review of Relevant I have reviewed the following items nolan (where applicable) has been applied. Labs Laboratory Tests Test 03/02/19 15:15 03/02/19 15:48 03/02/19 20:25 03/03/19 06:49 White Blood Count 8.1 x10^3/uL (4.0-11.0) Red Blood Count 4.04 x10^6/uL (3.50-5.40) Hemoglobin 9.9 g/dL (12.0-15.5) Hematocrit 31.8 % (36.0-47.0) Mean Corpuscular Volume 79 fL (79-100) Mean Corpuscular Hemoglobin 24 pg (25-35) Mean Corpuscular Hemoglobin Concent 31 g/dL (31-37) Red Cell Distribution Width 18.1 % (11.5-14.5) Platelet Count 277 x10^3/uL (140-400) Neutrophils (%) (Auto) 84 % (31-73) Lymphocytes (%) (Auto) 9 % (24-48) Monocytes (%) (Auto) 7 % (0-9) Eosinophils (%) (Auto) 0 % (0-3) Basophils (%) (Auto) 1 % (0-3) Neutrophils # (Auto) 6.8 x10^3/uL (1.8-7.7) Lymphocytes # (Auto) 0.7 x10^3/uL (1.0-4.8) Monocytes # (Auto) 0.6 x10^3/uL (0.0-1.1) Eosinophils # (Auto) 0.0 x10^3/uL (0.0-0.7) Basophils # (Auto) 0.1 x10^3/uL (0.0-0.2) Prothrombin Time 11.3 SEC (11.7-14.0) Prothromb Time International Ratio 0.9 (0.8-1.1) Sodium Level 139 mmol/L (136-145) 140 mmol/L (136-145) Potassium Level 3.7 mmol/L (3.5-5.1) 4.0 mmol/L (3.5-5.1) Chloride Level 100 mmol/L (98-107) 99 mmol/L (98-107) Carbon Dioxide Level 38 mmol/L (21-32) 36 mmol/L (21-32) Anion Gap 1 (6-14) 5 (6-14) Blood Urea Nitrogen 7 mg/dL (7-20) 13 mg/dL (7-20) Creatinine 0.9 mg/dL (0.6-1.0) 0.8 mg/dL (0.6-1.0) Estimated GFR (Cockcroft-Gault) 76.0 87.1 BUN/Creatinine Ratio 8 (6-20) 16 (6-20) Glucose Level 194 mg/dL (70-99) 228 mg/dL (70-99) Calcium Level 9.5 mg/dL (8.5-10.1) 9.5 mg/dL (8.5-10.1) Total Bilirubin 0.4 mg/dL (0.2-1.0) 0.3 mg/dL (0.2-1.0) Aspartate Amino Transf (AST/SGOT) 15 U/L (15-37) 10 U/L (15-37) Alanine Aminotransferase (ALT/SGPT) 14 U/L (14-59) 11 U/L (14-59) Alkaline Phosphatase 88 U/L (46-116) 83 U/L (46-116) Troponin I Quantitative < 0.017 ng/mL (0.000-0.055) < 0.017 ng/mL (0.000-0.055) AD-Ctd-I-Type Natriuretic Peptide 2657 pg/mL (0-124) Total Protein 7.8 g/dL (6.4-8.2) 7.7 g/dL (6.4-8.2) Albumin 3.1 g/dL (3.4-5.0) 3.0 g/dL (3.4-5.0) Albumin/Globulin Ratio 0.7 (1.0-1.7) 0.6 (1.0-1.7) Urine Collection Type Unknown Urine Color Yellow Urine Clarity Clear Urine pH 8.0 Urine Specific [place] 1.015 Urine Protein Negative mg/dL (NEG-TRACE) Urine Glucose (UA) 500 mg/dL (NEG) Urine Ketones (Stick) Negative mg/dL (NEG) Urine Blood Negative (NEG) Urine Nitrite Negative (NEG) Urine Bilirubin Negative (NEG) Urine Urobilinogen Dipstick 1.0 mg/dL (0.2 mg/dL) Urine Leukocyte Esterase Negative (NEG) Urine RBC 0 /HPF (0-2) Urine WBC 0 /HPF (0-4) Urine Squamous Epithelial Cells Occ /LPF Urine Bacteria 0 /HPF (0-FEW) Urine Opiates Screen Neg (NEG) Urine Methadone Screen Neg (NEG) Urine Barbiturates Neg (NEG) Urine Phencyclidine Screen Neg (NEG) Urine Amphetamine/Methamphetamine Neg (NEG) Urine Benzodiazepines Screen Neg (NEG) Urine Cocaine Screen Neg (NEG) Urine Cannabinoids Screen Pos (NEG) Urine Ethyl Alcohol Neg (NEG) Magnesium Level 2.2 mg/dL (1.8-2.4) Test 03/03/19 12:38 Glucose (Fingerstick) 152 mg/dL (70-99) Laboratory Tests Test 03/02/19 15:15 03/02/19 15:48 03/02/19 20:25 03/03/19 06:49 White Blood Count 8.1 x10^3/uL (4.0-11.0) Red Blood Count 4.04 x10^6/uL (3.50-5.40) Hemoglobin 9.9 g/dL (12.0-15.5) Hematocrit 31.8 % (36.0-47.0) Mean Corpuscular Volume 79 fL (79-100) Mean Corpuscular Hemoglobin 24 pg (25-35) Mean Corpuscular Hemoglobin Concent 31 g/dL (31-37) Red Cell Distribution Width 18.1 % (11.5-14.5) Platelet Count 277 x10^3/uL (140-400) Neutrophils (%) (Auto) 84 % (31-73) Lymphocytes (%) (Auto) 9 % (24-48) Monocytes (%) (Auto) 7 % (0-9) Eosinophils (%) (Auto) 0 % (0-3) Basophils (%) (Auto) 1 % (0-3) Neutrophils # (Auto) 6.8 x10^3/uL (1.8-7.7) Lymphocytes # (Auto) 0.7 x10^3/uL (1.0-4.8) Monocytes # (Auto) 0.6 x10^3/uL (0.0-1.1) Eosinophils # (Auto) 0.0 x10^3/uL (0.0-0.7) Basophils # (Auto) 0.1 x10^3/uL (0.0-0.2) Prothrombin Time 11.3 SEC (11.7-14.0) Prothromb Time International Ratio 0.9 (0.8-1.1) Sodium Level 139 mmol/L (136-145) 140 mmol/L (136-145) Potassium Level 3.7 mmol/L (3.5-5.1) 4.0 mmol/L (3.5-5.1) Chloride Level 100 mmol/L (98-107) 99 mmol/L (98-107) Carbon Dioxide Level 38 mmol/L (21-32) 36 mmol/L (21-32) Anion Gap 1 (6-14) 5 (6-14) Blood Urea Nitrogen 7 mg/dL (7-20) 13 mg/dL (7-20) Creatinine 0.9 mg/dL (0.6-1.0) 0.8 mg/dL (0.6-1.0) Estimated GFR (Cockcroft-Gault) 76.0 87.1 BUN/Creatinine Ratio 8 (6-20) 16 (6-20) Glucose Level 194 mg/dL (70-99) 228 mg/dL (70-99) Calcium Level 9.5 mg/dL (8.5-10.1) 9.5 mg/dL (8.5-10.1) Total Bilirubin 0.4 mg/dL (0.2-1.0) 0.3 mg/dL (0.2-1.0) Aspartate Amino Transf (AST/SGOT) 15 U/L (15-37) 10 U/L (15-37) Alanine Aminotransferase (ALT/SGPT) 14 U/L (14-59) 11 U/L (14-59) Alkaline Phosphatase 88 U/L (46-116) 83 U/L (46-116) Troponin I Quantitative < 0.017 ng/mL (0.000-0.055) < 0.017 ng/mL (0.000-0.055) XZ-Tgv-M-Type Natriuretic Peptide 2657 pg/mL (0-124) Total Protein 7.8 g/dL (6.4-8.2) 7.7 g/dL (6.4-8.2) Albumin 3.1 g/dL (3.4-5.0) 3.0 g/dL (3.4-5.0) Albumin/Globulin Ratio 0.7 (1.0-1.7) 0.6 (1.0-1.7) Urine Collection Type Unknown Urine Color Yellow Urine Clarity Clear Urine pH 8.0 Urine Specific [place] 1.015 Urine Protein Negative mg/dL (NEG-TRACE) Urine Glucose (UA) 500 mg/dL (NEG) Urine Ketones (Stick) Negative mg/dL (NEG) Urine Blood Negative (NEG) Urine Nitrite Negative (NEG) Urine Bilirubin Negative (NEG) Urine Urobilinogen Dipstick 1.0 mg/dL (0.2 mg/dL) Urine Leukocyte Esterase Negative (NEG) Urine RBC 0 /HPF (0-2) Urine WBC 0 /HPF (0-4) Urine Squamous Epithelial Cells Occ /LPF Urine Bacteria 0 /HPF (0-FEW) Urine Opiates Screen Neg (NEG) Urine Methadone Screen Neg (NEG) Urine Barbiturates Neg (NEG) Urine Phencyclidine Screen Neg (NEG) Urine Amphetamine/Methamphetamine Neg (NEG) Urine Benzodiazepines Screen Neg (NEG) Urine Cocaine Screen Neg (NEG) Urine Cannabinoids Screen Pos (NEG) Urine Ethyl Alcohol Neg (NEG) Magnesium Level 2.2 mg/dL (1.8-2.4) Test 03/03/19 12:38 Glucose (Fingerstick) 152 mg/dL (70-99) Medications Current Medications Albuterol/ Ipratropium (Duoneb) 3 ml 1X ONCE NEB Last administered on 03/02/19at 15:48; Start 03/02/19 at 15:30; Stop 03/02/19 at 15:31; Status DC Methylprednisolone Sodium Succinate (SOLU-Medrol 125MG VIAL) 125 mg 1X ONCE IV Last administered on 03/02/19at 16:14; Start 03/02/19 at 15:30; Stop 03/02/19 at 15:31; Status DC Ondansetron HCl (Zofran) 4 mg 1X ONCE IV Last administered on 03/02/19at 16:15; Start 03/02/19 at 15:45; Stop 03/02/19 at 15:47; Status DC Morphine Sulfate (Morphine Sulfate) 2 mg 1X ONCE IV Last administered on 03/02/19at 16:15; Start 03/02/19 at 15:45; Stop 03/02/19 at 15:47; Status DC Furosemide (Lasix) 40 mg 1X ONCE IVP Last administered on 03/02/19at 17:45; Start 03/02/19 at 17:00; Stop 03/02/19 at 17:04; Status DC Ondansetron HCl (Zofran) 4 mg PRN Q8HRS PRN IV NAUSEA/VOMITING; Start 03/02/19 at 17:15; Stop 03/02/19 at 19:58; Status DC Morphine Sulfate (Morphine Sulfate) 2 mg PRN Q2HR PRN IV PAIN Last administered on 03/03/19at 05:12; Start 03/02/19 at 17:15 Acetaminophen (Tylenol) 650 mg PRN Q4HRS PRN PO FEVER; Start 03/02/19 at 17:15 Albuterol/ Ipratropium (Duoneb) 3 ml RTQID NEB Last administered on 03/03/19at 12:43; Start 03/02/19 at 20:00 Ondansetron HCl (Zofran) 4 mg PRN Q6HRS PRN IV NAUSEA/VOMITING; Start 03/02/19 at 20:00 Albuterol Sulfate (Ventolin Neb Soln) 2.5 mg PRN Q6HRS PRN INH SHORTNESS OF BREATH; Start 03/02/19 at 20:00 Amlodipine Besylate (Norvasc) 5 mg DAILY PO Last administered on 03/03/19at 09:06; Start 03/03/19 at 09:00 Aspirin (Ecotrin) 81 mg DAILY PO Last administered on 03/03/19at 09:04; Start 03/03/19 at 09:00 Atorvastatin Calcium (Lipitor) 20 mg HS PO Last administered on 03/02/19at 21:05; Start 03/02/19 at 21:00 Calcium Carbonate/ Glycine (Oscal) 500 mg BID PO ; Start 03/02/19 at 21:00; Stop 03/02/19 at 20:05; Status DC Calcium/Vitamin D (Oscal D 500mg/ 200uts) 1 tab DAILY PO Last administered on 03/03/19at 09:04; Start 03/03/19 at 09:00 Capsaicin (Zostrix) 60 tre PRN TID PRN TP TOPICAL PAIN Last administered on 03/03/19at 10:19; Start 03/02/19 at 20:00 Clonazepam (KlonoPIN) 0.5 mg PRN TID PRN PO anxiety; Start 03/02/19 at 20:00 Clopidogrel Bisulfate (Plavix) 75 mg DAILYWBKFT PO Last administered on 03/03/19at 09:04; Start 03/03/19 at 08:00 Docusate Sodium (Colace) 100 mg BID PO Last administered on 03/03/19at 09:04; Start 03/02/19 at 21:00 Ferrous Sulfate (Feosol) 325 mg DAILYWBKFT PO Last administered on 03/03/19 09:05; Start 03/03/19 at 08:00 Fluoxetine HCl (PROzac) 20 mg DAILY PO Last administered on 03/03/19 10:19; Start 03/03/19 at 09:00 Glimepiride (Amaryl) 2 mg DAILY08 PO Last administered on 03/03/19at 09:05; Start 03/03/19 at 08:00 Metoprolol Tartrate (Lopressor) 25 mg BID PO Last administered on 03/03/19at 09:04; Start 03/02/19 at 21:00 Nitroglycerin (Nitrostat) 0.4 mg PRN Q5MIN PRN SL CHEST PAIN; Start 03/02/19 at 20:00 Ondansetron HCl (Zofran Odt) 4 mg PRN Q6HRS PRN PO nausea; Start 03/02/19 at 20:00 Pantoprazole Sodium (Protonix) 40 mg DAILYAC PO Last administered on 03/03/19at 09:04; Start 03/03/19 at 07:30 Zolpidem Tartrate (Ambien) 5 mg PRN QHS PRN PO insomnia; Start 03/02/19 at 20:00 Losartan Potassium (Cozaar) 100 mg DAILY PO Last administered on 03/03/19at 09:06; Start 03/03/19 at 09:00 Tramadol HCl (Ultram) 50 mg PRN Q6HRS PRN PO PAIN MODERATE; Start 03/02/19 at 20:00 Furosemide (Lasix) 40 mg DAILY IVP Last administered on 03/03/19at 09:06; Start 03/03/19 at 09:00 Enoxaparin Sodium (Lovenox 40mg Syringe) 40 mg Q24H SQ Last administered on 03/02/19at 21:05; Start 03/02/19 at 20:15 Oxycodone/ Acetaminophen (Percocet 10/325) 1 tab PRN Q6HRS PRN PO PAIN MODERATE TO SEVERE Last administered on 03/03/19at 10:19; Start 03/03/19 at 10:00 Active Scripts Active Feosol (Ferrous Sulfate) 325 Mg Tablet 325 Mg PO DAILYWBKFT 30 Days Ventolin Hfa Inhaler (Albuterol Sulfate) 18 Gm Hfa.aer.ad 2 Puff INH Q4HRS Protonix (Pantoprazole Sodium) 40 Mg Tablet.dr 40 Mg PO DAILYAC 60 Days Percocet 10-325 Mg Tablet (Oxycodone/Acetaminophen) 1 Each Tablet 2 Tab PO PRN Q4-6HRS PRN MDD 1 Clopidogrel (Clopidogrel Bisulfate) 75 Mg Tablet 75 Mg PO DAILYWBKFT Ondansetron Odt (Ondansetron) 4 Mg Tab.rapdis 1 Tab PO PRN Q6-8HRS Proair Hfa Inhaler (Albuterol Sulfate) 8.5 Gm Hfa.aer.ad 1 Puff INH PRN Q6HRS PRN Amaryl (Glimepiride) 2 Mg Tablet 2 Mg PO DAILY 30 Days Reported Losartan Potassium 100 Mg Tablet 100 Mg PO DAILY Calcium Carbonate 500 Mg Tablet 1 Tab PO BID 30 Days Amlodipine Besylate 5 Mg Tablet 5 Mg PO DAILY Docusate Sodium 100 Mg Capsule 1 Cap PO BID Metoprolol Tartrate 25 Mg Tablet 25 Mg PO BID Capsaicin 60 Gm Cream..g. 60 Gm TP PRN TID apply to morgan feet Calcium 500 + Vit D 200 Caplet (Calcium Carbonate/Vitamin D3) 1 Each Tablet 1 Each PO DAILY Zolpidem Tartrate 5 Mg Tablet 5 Mg PO QHS Clonazepam (Clonazepam) 0.5 Mg Tablet 0.5 Mg PO TID Fluoxetine Hcl 20 Mg Capsule 1 Cap PO DAILY Furosemide 80 Mg Tablet 80 Mg PO BID Albuterol Sulfate Conc Neb Soln (Albuterol Sulfate) 2.5 Mg/0.5 Ml Vial.neb 5 Mg NEB PRN PRN NITROGLYCERIN SubLingual (Nitroglycerin) 0.4 Mg Tab.subl 0.4 Mg SL PRN Q5MIN PRN Atorvastatin Calcium 20 Mg Tablet 20 Mg PO HS Aspir 81 (Aspirin) 81 Mg Tablet. 1 Tab PO DAILY Vitals/I & O Vital Sign - Last 24 Hours 03/02/19 03/02/19 03/02/19 03/02/19 14:50 15:39 15:49 16:09 Temp 98.2 98.2 Pulse 75 61 61 Resp 16 22 28 B/P (MAP) 189/89 (122) 202/87 (125) 183/76 (111) Pulse Ox 98 100 100 100 O2 Delivery Nasal Cannula Nasal Cannula Nasal Cannula Nasal Cannula O2 Flow Rate 2.0 2.0 2.0 2.0 03/02/19 03/02/19 03/02/19 03/02/19 16:15 16:24 16:39 16:54 Pulse 60 60 60 Resp 19 26 29 24 B/P (MAP) 177/77 (110) 147/56 (86) 163/72 (102) Pulse Ox 100 100 100 100 O2 Delivery Nasal Cannula Nasal Cannula Nasal Cannula Nasal Cannula O2 Flow Rate 2.0 2.0 2.0 2.0 03/02/19 03/02/19 03/02/19 03/02/19 17:09 17:24 17:38 17:39 Pulse 60 60 Resp 19 27 B/P (MAP) 173/76 (108) 169/75 (106) 157/67 (97) Pulse Ox 100 100 100 O2 Delivery Nasal Cannula Nasal Cannula Room Air Nasal Cannula O2 Flow Rate 2.0 2.0 2.0 03/02/19 03/02/19 03/02/19 03/02/19 17:54 18:09 18:24 18:39 B/P (MAP) 165/70 (101) 172/72 (105) 181/77 (111) 178/77 (110) Pulse Ox 100 99 96 100 O2 Delivery Nasal Cannula Nasal Cannula Nasal Cannula Nasal Cannula O2 Flow Rate 2.0 2.0 2.0 2.0 03/02/19 03/02/19 03/02/19 03/02/19 19:30 20:00 20:19 21:05 Temp 99.3 99.3 Pulse 62 60 Resp 18 B/P (MAP) 171/73 (105) 178/77 Pulse Ox 99 96 O2 Delivery Nasal Cannula Nasal Cannula O2 Flow Rate 2.0 2.0 03/02/19 03/02/19 03/02/19 03/03/19 21:40 23:00 23:47 00:57 Temp 99.0 99.0 Pulse 63 Resp 16 B/P (MAP) 164/73 (103) Pulse Ox 97 O2 Delivery Nasal Cannula Nasal Cannula Nasal Cannula O2 Flow Rate 2.0 2.0 2.0 03/03/19 03/03/19 03/03/19 03/03/19 01:47 03:00 05:12 05:45 Temp 98.7 98.7 Pulse 62 Resp 18 B/P (MAP) 183/78 (113) Pulse Ox 99 O2 Delivery Nasal Cannula Nasal Cannula Nasal Cannula O2 Flow Rate 2.0 2.0 2.0 03/03/19 03/03/19 03/03/19 03/03/19 07:33 08:05 08:21 08:25 Temp 98.1 98.1 Pulse 60 Resp 18 B/P (MAP) 175/76 (109) Pulse Ox 99 100 99 O2 Delivery Nasal Cannula Nasal Cannula Nasal Cannula O2 Flow Rate 2.0 2.0 1.0 03/03/19 03/03/19 03/03/19 03/03/19 09:04 09:06 09:06 10:26 Temp 97.8 97.8 Pulse 80 80 80 82 Resp 18 B/P (MAP) 175/74 (107) Pulse Ox 90 03/03/19 12:19 Pulse 60 Resp 18 B/P (MAP) 162/70 (100) VENKAT ALEJANDRO MD Mar 03, 2019 14:08
[2019-03-03] MEDS: oxyCODONE/APAP 10/325 1 TAB TABLET PO PRN ×2 (15:17→22:10)
[2019-03-03 18:21] LABS: INFLUENZA A PATIENT NEGATIVE (NEGATIVE); INFLUENZA B PATIENT NEGATIVE (NEGATIVE)
[2019-03-03] MEDS: ENOXAPARIN 40 MG/0.4 ML SYRINGE. SQ SCH (21:14)
[2019-03-03] MEDS: ATORVASTATIN CALCIUM 20 MG TABLET PO SCH (21:14)
[2019-03-04 01:07] LABS: HEMOGLOBIN A1C 6.9 % (4.8-5.6)
[2019-03-04 03:00] VITALS: BP 134/47
[2019-03-04] MEDS: oxyCODONE/APAP 10/325 1 TAB TABLET PO PRN ×2 (03:59→10:05)
[2019-03-04 07:00] VITALS: BP 166/70
[2019-03-04] MEDS: PANTOPRAZOLE 40 MG TABLET.DR. PO SCH (07:54)
[2019-03-04] MEDS: traMADol 50 MG TABLET PO PRN ×2 (07:55→13:52)
[2019-03-04] MEDS: CLOPIDOGREL BISULFATE 75 MG TABLET PO SCH (07:58)
[2019-03-04] MEDS: DOCUSATE SODIUM 100 MG CAPSULE. PO SCH (07:58)
[2019-03-04] MEDS: METOPROLOL TART IMMED RELEASE 25 MG TABLET. PO SCH (07:59)
[2019-03-04] MEDS: FLUoxetine HCL 20 MG CAPSULE PO SCH (07:59)
[2019-03-04] MEDS: amLODIPine BESYLATE 5 MG TABLET PO SCH (08:00)
[2019-03-04] MEDS: CALCIUM CARB/VIT D3 500/200 TABLET. PO SCH (08:00)
[2019-03-04] MEDS: LOSARTAN POTASSIUM 50 MG TABLET. PO SCH (08:01)
[2019-03-04] MEDS: IPRATRPIUM/ALBUTEROL 0.5/2.5MG 3 ML NEBU. NEB SCH ×2 (08:10→12:21)
[2019-03-04] MEDS: GLIMEPIRIDE 2 MG TABLET. PO SCH (08:56)
[2019-03-04] MEDS: ASPIRIN ENTERIC COATED 81 MG TABLET.DR. PO SCH (08:56)
[2019-03-04] MEDS: FERROUS SULFATE 325 MG TABLET. PO SCH (08:56)
[2019-03-04] MEDS: FUROSEMIDE 40 MG/4 ML VIAL. IVP SCH (08:57)
[2019-03-04] MEDS: CAPSAICIN 0.025% TOPICAL CREAM 60GM TUBE. TP PRN (09:12)
[2019-03-04 11:24] VITALS: BP 131/60
[2019-03-04] MEDS ORDERED: INSU100I32 SQ (12:30)
[2019-03-04] MEDS ORDERED: DEXTROSE 50% 25 GM / 50ML DISP.SYRIN. IV PRN (12:30)
--- NOTE | 2019-03-04 12:32 | SNU/HH DC ---
DISCHARGE WITH HOME HEALTH DISCHARGE INFORMATION: Discharge Date: Mar 04, 2019 Final Diagnosis: Acute systolic CHF Condition on Discharge: Stable CODE STATUS: Code Status: Full HOME HEALTH: Face to Face: I certify this patient is under my care and that I, or a nurse practitioner or physician's media center assistant working with me, had a face to face encounter that meets the physician face to face encounter requirements with this patient on 03/04/2019. Medical Complications: CHF [facility] For: Assess Cardiopulm Status, Diabetic Care, Medication Management RN For Eval/Treatment: Yes Physical Therapy For: Evalulation/Treatment Occupational Therapy For: Evaluation/Treatment FLIGHT DYNAMICIST For: Community Resources Pt Meets Homebound Status: Poor coordination w/ amb., Extreme weakness w/ amb. POST DISCHARGE ORDERS: Activity Instructions for Disc: No restrictions, Activity as tolerated Weight Bearing Status after Di: No restrictions DIET AFTER DISCHARGE: Cardiac Wound/Incision Care: No wound care needed CHECKS AFTER DISCHARGE: Checks after discharge: Check blood press - daily, Check your Temp as needed, Weigh Yourself Daily TREATMENT/EQUIPMENT ORDERS: Adaptive Equipment Issued: Walker Discharge Respiratory Equipmen: Oxygen CERTIFICATION STATEMENT: Certification Statement: Certification Statement: Based on the above finding, I certify that this patient is confined to the home and needs intermittent fdc care, physical therapy and/or speech therapy, or continues to need occupational therapy.~ This patient is under my care, and I have initiated the establishment of the plan of care.~ This patient will be followed by myself or a community physician who will periodically review the plan of care. Home Meds Active Scripts Insulin Glargine,Hum.rec.anlog (Kamaljitaglar Kwikpen U-100) 100 Unit/1 Ml Insuln.pen, 8 UNIT SQ QHS for DM2 for 30 Days, #3 EACH 2 Refills Prov:VENKAT ALEJANDRO MD 03/04/19 Ferrous Sulfate (FEOSOL) 325 Mg Tablet, 325 MG PO DAILYWBKFT for ROXANE for 30 Days, #30 TAB 2 Refills Prov:VENKAT ALEJANDRO MD 02/16/19 Albuterol Sulfate (VENTOLIN HFA INHALER) 18 Gm Hfa.aer.ad, 2 PUFF INH Q4HRS for FOR ASTHMA, #1 INHALER 0 Refills Prov:DESMOND CARSON APRN 02/12/19 Pantoprazole Sodium (PROTONIX ) 40 Mg Tablet.dr, 40 MG PO DAILYAC for GERD for 60 Days, #60 TAB Prov:CATHIE KNIGHT MD 01/29/19 Oxycodone/Apap 10-325 (PERCOCET 10-325 MG TABLET ) 1 Each Tablet, 2 TAB PO PRN Q4-6HRS PRN for PAIN MDD 1, #20 TAB 0 Refills Prov:CATHIE KNIGHT MD 01/29/19 Clopidogrel Bisulfate (CLOPIDOGREL) 75 Mg Tablet, 75 MG PO DAILYWBKFT for heart protection, #30 TAB Prov:LÓPEZ BARRIOS MD 11/07/18 Ondansetron (ONDANSETRON ODT) 4 Mg Tab.rapdis, 1 TAB PO PRN Q6-8HRS, #16 TAB Prov:DESMOND CARSON POCKETED SPRING MACHINE OPERATOR 08/13/18 Albuterol Sulfate (PROAIR HFA INHALER) 8.5 Gm Hfa.aer.ad, 1 PUFF INH PRN Q6HRS PRN for SHORTNESS OF BREATH, #1 INHALER 0 Refills Prov:MILLER ORTIZ MD 06/21/18 Glimepiride (AMARYL) 2 Mg Tablet, 2 MG PO DAILY for 30 Days, #30 TAB Prov:RADHA PIERRE MD 07/04/17 Reported Medications Losartan Potassium (LOSARTAN POTASSIUM) 100 Mg Tablet, 100 MG PO DAILY for HTN 02/03/19 Calcium Carbonate (CALCIUM CARBONATE) 500 Mg Tablet, 1 TAB PO BID for GERD for 30 Days, #60 TAB 0 Refills 02/03/19 Amlodipine Besylate (AMLODIPINE BESYLATE) 5 Mg Tablet, 5 MG PO DAILY for HTN, TAB 02/03/19 Docusate Sodium (DOCUSATE SODIUM) 100 Mg Capsule, 1 CAP PO BID for constipation, #14 CAP 12/05/18 Metoprolol Tartrate (METOPROLOL TARTRATE) 25 Mg Tablet, 25 MG PO BID for FOR HYPERTENSION, #60 TAB 0 Refills 08/30/18 Capsaicin (CAPSAICIN) 60 Gm Cream..g., 60 GM TP PRN TID for , EACH apply to morgan feet 07/14/18 Calcium Carbonate/Vitamin D3 (CALCIUM 500 + VIT D 200 CAPLET) 1 Each Tablet, 1 EACH PO DAILY for supplement, TAB 05/16/18 Zolpidem Tartrate (ZOLPIDEM TARTRATE) 5 Mg Tablet, 5 MG PO QHS for insomnia, TAB 0 Refills 05/16/18 Clonazepam (CLONAZEPAM ) 0.5 Mg Tablet, 0.5 MG PO TID for anti-anxiety, TAB 05/16/18 Fluoxetine Hcl (FLUOXETINE HCL) 20 Mg Capsule, 1 CAP PO DAILY for anti- depressent, #90 CAP 1 Refill 05/16/18 Furosemide (FUROSEMIDE) 80 Mg Tablet, 80 MG PO BID for heart, TAB 10/09/17 Albuterol Sulfate (ALBUTEROL SULFATE CONC NEB SOLN) 2.5 Mg/0.5 Ml Vial.neb, 5 MG NEB PRN PRN for WHEEZING, EACH 0 Refills 10/07/17 Nitroglycerin (NITROGLYCERIN SubLingual) 0.4 Mg Tab.subl, 0.4 MG SL PRN Q5MIN PRN for CHEST PAIN, BOTTLE 11/01/16 Atorvastatin Calcium (ATORVASTATIN CALCIUM) 20 Mg Tablet, 20 MG PO HS for FOR CHOLESTEROL, #30 TAB 0 Refills 10/28/16 Aspirin (ASPIR 81) 81 Mg Tablet., 1 TAB PO DAILY, #30 TAB 5 Refills 10/28/16 VENKAT ALEJANDRO MD Mar 04, 2019 12:32
--- NOTE | 2019-03-04 12:38 | PDOC ---
PROGRESS NOTES Chief Complaint Chief Complaint A/P: Intractable abdominal pain with nausea and vomiting. IV anti-emetics. 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 I have counseled endlessly on this Chest pain - likely demand from acute CHF vs referred GI pain. Will maintain telemetry and trend troponins given her high risk and frequent hospitalizations Accelerated Hypertension - not currently controlled SSS s/p PPM - Stable Hyperlipidemia - Continue statin therapy Chronic stable angina Acute heart failure - systolic - Lasix x1 in ED, will place on IV lasix, daily BMP and Mag levels Akinetic distal anterior wall and the entire apical wall with ejection fraction estimated at 40%.per cath 05/12 Morbid obesity Diabetes type 2 - will repeat A1c. Sliding scale GERD - cont PPI CAD WITH HX STENTS - recent cardiac catheterization 04/2018 showed patent GARCIA to LAD and patent SVG to OM. . No further cardiac workup is indicated Acute hypoxia - likely cor pulmonale, will trial on 6 minute walk FEN - ADA cardiac diet PPX - lovenox FULL CODE Dispo - inpatient History of Present Illness History of Present Illness Ms Laguna is a 64yo F w/ PMHx HTN, SSS, HLD, obesity, chronic pain syndrome, chronic systolic CHF, cor pulmonale with hypoxia on 3L NCO2 who presented with acute nausea and vomiting and abdominal pain. On further ROS she notes substernal and right sided chest pain. Notes NTG x3 today without relief and 4 baby aspirins. Patient during her pain an 8 out of 10. She also c/o a headache and wheezing. Patient states that she took a breathing treatment last night and it did help some. UDS positive for cannabinoids. CXR with increased pulmonary vascular congestion and LE edema worse. BNP was 2657. She has been admitted frequently for chest pain with [facility] 04/2018: 1. 40% stenosis involving the obtuse marginal branch of left circumflex artery without any other significant stenoses. The left internal mammary artery graft to the left anterior descending artery and the saphenous vein graft to the obtuse marginal branch were patent. Of note, patient seems to have had CABG for thrombus in left main coronary artery and left anterior descending artery in the past. No lesions were noted because the thrombus resolved. 2. Akinetic distal anterior wall and the entire apical wall with ejection fraction estimated at 40%. EKG - sinus with no STEMI. No chest pain. She c/o RLQ abdominal pain and nausea, no further vomiting. She has missed GI f/u outpatient and has some difficulty with compliance. Admitted for further treatment. 03/03: Overnight feeling some right flank pain. Short of breath, but slightly improved. Nausea improved. She still cannot move very far. Seen by cardiology. Moving better, asking for pain medication every 4 hours. I have discussed considering lowering her large doses of opioids, that they may be contributing to her GI symptoms and overall hospital readmissions. Her CP and SOB have improved. Vitals Vitals Vital Signs Date Time Temp Pulse Resp B/P (MAP) Pulse Ox O2 Delivery O2 Flow Rate FiO2 03/04/19 12:22 Nasal Cannula 2.0 03/04/19 11:24 98.0 60 20 131/60 (83) 99 98.0 Physical Exam General: Alert, Oriented X3, Cooperative, mild distress Lungs: Clear, Other Abdomen: Normal bowel sounds, Soft, No hepatosplenomegaly, No masses, Other (epigastrium tender slightly) Extremities: No clubbing, No cyanosis, Normal pulses, No tenderness/swelling, Other (2+ edema) Skin: No rashes, No breakdown, No significant lesion Labs LABS Laboratory Tests Test 03/03/19 12:38 03/03/19 16:35 03/03/19 16:42 03/03/19 20:54 Glucose (Fingerstick) 152 mg/dL (70-99) 330 mg/dL (70-99) 213 mg/dL (70-99) Influenza Type A Antigen Negative (NEGATIVE) Influenza Type B Antigen Negative (NEGATIVE) Test 03/04/19 07:44 03/04/19 11:12 Glucose (Fingerstick) 187 mg/dL (70-99) 324 mg/dL (70-99) Comment Review of Relevant I have reviewed the following items nolan (where applicable) has been applied. Labs Laboratory Tests Test 03/02/19 15:15 03/02/19 15:48 03/02/19 20:25 03/03/19 06:49 White Blood Count 8.1 x10^3/uL (4.0-11.0) Red Blood Count 4.04 x10^6/uL (3.50-5.40) Hemoglobin 9.9 g/dL (12.0-15.5) Hematocrit 31.8 % (36.0-47.0) Mean Corpuscular Volume 79 fL (79-100) Mean Corpuscular Hemoglobin 24 pg (25-35) Mean Corpuscular Hemoglobin Concent 31 g/dL (31-37) Red Cell Distribution Width 18.1 % (11.5-14.5) Platelet Count 277 x10^3/uL (140-400) Neutrophils (%) (Auto) 84 % (31-73) Lymphocytes (%) (Auto) 9 % (24-48) Monocytes (%) (Auto) 7 % (0-9) Eosinophils (%) (Auto) 0 % (0-3) Basophils (%) (Auto) 1 % (0-3) Neutrophils # (Auto) 6.8 x10^3/uL (1.8-7.7) Lymphocytes # (Auto) 0.7 x10^3/uL (1.0-4.8) Monocytes # (Auto) 0.6 x10^3/uL (0.0-1.1) Eosinophils # (Auto) 0.0 x10^3/uL (0.0-0.7) Basophils # (Auto) 0.1 x10^3/uL (0.0-0.2) Prothrombin Time 11.3 SEC (11.7-14.0) Prothromb Time International Ratio 0.9 (0.8-1.1) Sodium Level 139 mmol/L (136-145) 140 mmol/L (136-145) Potassium Level 3.7 mmol/L (3.5-5.1) 4.0 mmol/L (3.5-5.1) Chloride Level 100 mmol/L (98-107) 99 mmol/L (98-107) Carbon Dioxide Level 38 mmol/L (21-32) 36 mmol/L (21-32) Anion Gap 1 (6-14) 5 (6-14) Blood Urea Nitrogen 7 mg/dL (7-20) 13 mg/dL (7-20) Creatinine 0.9 mg/dL (0.6-1.0) 0.8 mg/dL (0.6-1.0) Estimated GFR (Cockcroft-Gault) 76.0 87.1 BUN/Creatinine Ratio 8 (6-20) 16 (6-20) Glucose Level 194 mg/dL (70-99) 228 mg/dL (70-99) Calcium Level 9.5 mg/dL (8.5-10.1) 9.5 mg/dL (8.5-10.1) Total Bilirubin 0.4 mg/dL (0.2-1.0) 0.3 mg/dL (0.2-1.0) Aspartate Amino Transf (AST/SGOT) 15 U/L (15-37) 10 U/L (15-37) Alanine Aminotransferase (ALT/SGPT) 14 U/L (14-59) 11 U/L (14-59) Alkaline Phosphatase 88 U/L (46-116) 83 U/L (46-116) Troponin I Quantitative < 0.017 ng/mL (0.000-0.055) < 0.017 ng/mL (0.000-0.055) LZ-Wil-X-Type Natriuretic Peptide 2657 pg/mL (0-124) Total Protein 7.8 g/dL (6.4-8.2) 7.7 g/dL (6.4-8.2) Albumin 3.1 g/dL (3.4-5.0) 3.0 g/dL (3.4-5.0) Albumin/Globulin Ratio 0.7 (1.0-1.7) 0.6 (1.0-1.7) Urine Collection Type Unknown Urine Color Yellow Urine Clarity Clear Urine pH 8.0 Urine Specific [place] 1.015 Urine Protein Negative mg/dL (NEG-TRACE) Urine Glucose (UA) 500 mg/dL (NEG) Urine Ketones (Stick) Negative mg/dL (NEG) Urine Blood Negative (NEG) Urine Nitrite Negative (NEG) Urine Bilirubin Negative (NEG) Urine Urobilinogen Dipstick 1.0 mg/dL (0.2 mg/dL) Urine Leukocyte Esterase Negative (NEG) Urine RBC 0 /HPF (0-2) Urine WBC 0 /HPF (0-4) Urine Squamous Epithelial Cells Occ /LPF Urine Bacteria 0 /HPF (0-FEW) Urine Opiates Screen Neg (NEG) Urine Methadone Screen Neg (NEG) Urine Barbiturates Neg (NEG) Urine Phencyclidine Screen Neg (NEG) Urine Amphetamine/Methamphetamine Neg (NEG) Urine Benzodiazepines Screen Neg (NEG) Urine Cocaine Screen Neg (NEG) Urine Cannabinoids Screen Pos (NEG) Urine Ethyl Alcohol Neg (NEG) Hemoglobin A1c 6.9 % (4.8-5.6) Magnesium Level 2.2 mg/dL (1.8-2.4) Test 03/03/19 12:38 03/03/19 16:35 03/03/19 16:42 03/03/19 20:54 Glucose (Fingerstick) 152 mg/dL (70-99) 330 mg/dL (70-99) 213 mg/dL (70-99) Influenza Type A Antigen Negative (NEGATIVE) Influenza Type B Antigen Negative (NEGATIVE) Test 03/04/19 07:44 03/04/19 11:12 Glucose (Fingerstick) 187 mg/dL (70-99) 324 mg/dL (70-99) Laboratory Tests Test 03/03/19 12:38 03/03/19 16:35 03/03/19 16:42 03/03/19 20:54 Glucose (Fingerstick) 152 mg/dL (70-99) 330 mg/dL (70-99) 213 mg/dL (70-99) Influenza Type A Antigen Negative (NEGATIVE) Influenza Type B Antigen Negative (NEGATIVE) Test 03/04/19 07:44 03/04/19 11:12 Glucose (Fingerstick) 187 mg/dL (70-99) 324 mg/dL (70-99) Medications Current Medications Albuterol/ Ipratropium (Duoneb) 3 ml 1X ONCE NEB Last administered on 03/02/19at 15:48; Start 03/02/19 at 15:30; Stop 03/02/19 at 15:31; Status DC Methylprednisolone Sodium Succinate (SOLU-Medrol 125MG VIAL) 125 mg 1X ONCE IV Last administered on 03/02/19at 16:14; Start 03/02/19 at 15:30; Stop 03/02/19 at 15:31; Status DC Ondansetron HCl (Zofran) 4 mg 1X ONCE IV Last administered on 03/02/19at 16:15; Start 03/02/19 at 15:45; Stop 03/02/19 at 15:47; Status DC Morphine Sulfate (Morphine Sulfate) 2 mg 1X ONCE IV Last administered on 03/02/19at 16:15; Start 03/02/19 at 15:45; Stop 03/02/19 at 15:47; Status DC Furosemide (Lasix) 40 mg 1X ONCE IVP Last administered on 03/02/19at 17:45; Start 03/02/19 at 17:00; Stop 03/02/19 at 17:04; Status DC Ondansetron HCl (Zofran) 4 mg PRN Q8HRS PRN IV NAUSEA/VOMITING; Start 03/02/19 at 17:15; Stop 03/02/19 at 19:58; Status DC Morphine Sulfate (Morphine Sulfate) 2 mg PRN Q2HR PRN IV PAIN Last administered on 03/03/19at 05:12; Start 03/02/19 at 17:15 Acetaminophen (Tylenol) 650 mg PRN Q4HRS PRN PO FEVER; Start 03/02/19 at 17:15 Albuterol/ Ipratropium (Duoneb) 3 ml RTQID NEB Last administered on 03/04/19at 12:21; Start 03/02/19 at 20:00 Ondansetron HCl (Zofran) 4 mg PRN Q6HRS PRN IV NAUSEA/VOMITING; Start 03/02/19 at 20:00 Albuterol Sulfate (Ventolin Neb Soln) 2.5 mg PRN Q6HRS PRN INH SHORTNESS OF BREATH; Start 03/02/19 at 20:00 Amlodipine Besylate (Norvasc) 5 mg DAILY PO Last administered on 03/04/19at 08:00; Start 03/03/19 at 09:00 Aspirin (Ecotrin) 81 mg DAILY PO Last administered on 03/04/19at 08:56; Start 03/03/19 at 09:00 Atorvastatin Calcium (Lipitor) 20 mg HS PO Last administered on 03/03/19at 21:14; Start 03/02/19 at 21:00 Calcium Carbonate/ Glycine (Oscal) 500 mg BID PO ; Start 03/02/19 at 21:00; Stop 03/02/19 at 20:05; Status DC Calcium/Vitamin D (Oscal D 500mg/ 200uts) 1 tab DAILY PO Last administered on 03/04/19at 08:00; Start 03/03/19 at 09:00 Capsaicin (Zostrix) 60 tre PRN TID PRN TP TOPICAL PAIN Last administered on 03/11at 09:12; Start 03/02/19 at 20:00 Clonazepam (KlonoPIN) 0.5 mg PRN TID PRN PO anxiety Last administered on 03/03/19 22:10; Start 03/02/19 at 20:00 Clopidogrel Bisulfate (Plavix) 75 mg DAILYWBKFT PO Last administered on 03/04/19 07:58; Start 03/03/19 at 08:00 Docusate Sodium (Colace) 100 mg BID PO Last administered on 03/04/19 07:58; Start 03/02/19 at 21:00 Ferrous Sulfate (Feosol) 325 mg DAILYWBKFT PO Last administered on 03/04/19 08:56; Start 03/03/19 at 08:00 Fluoxetine HCl (PROzac) 20 mg DAILY PO Last administered on 03/04/19 07:59; Start 03/03/19 at 09:00 Glimepiride (Amaryl) 2 mg DAILY08 PO Last administered on 03/04/19 08:56; Start 03/03/19 at 08:00 Metoprolol Tartrate (Lopressor) 25 mg BID PO Last administered on 03/04/19 07:59; Start 03/02/19 at 21:00 Nitroglycerin (Nitrostat) 0.4 mg PRN Q5MIN PRN SL CHEST PAIN; Start 03/02/19 at 20:00 Ondansetron HCl (Zofran Odt) 4 mg PRN Q6HRS PRN PO nausea; Start 03/02/19 at 20:00 Pantoprazole Sodium (Protonix) 40 mg DAILYAC PO Last administered on 03/04/19 07:54; Start 03/03/19 at 07:30 Zolpidem Tartrate (Ambien) 5 mg PRN QHS PRN PO insomnia; Start 03/02/19 at 20:00 Losartan Potassium (Cozaar) 100 mg DAILY PO Last administered on 03/04/19 08:01; Start 03/03/19 at 09:00 Tramadol HCl (Ultram) 50 mg PRN Q6HRS PRN PO PAIN MODERATE Last administered on 03/04/19 07:55; Start 03/02/19 at 20:00 Furosemide (Lasix) 40 mg DAILY IVP Last administered on 03/04/19 08:57; Start 03/03/19 at 09:00 Enoxaparin Sodium (Lovenox 40mg Syringe) 40 mg Q24H SQ Last administered on 03/03/19at 21:14; Start 03/02/19 at 20:15 Oxycodone/ Acetaminophen (Percocet 10/325) 1 tab PRN Q6HRS PRN PO PAIN MODERATE TO SEVERE Last administered on 03/03/19at 10:19; Start 03/03/19 at 10:00; Stop 03/03/19 at 13:51; Status DC Oxycodone/ Acetaminophen (Percocet 10/325) 2 tab PRN Q6HRS PRN PO SEVERE PAIN Last administered on 03/04/19at 10:05; Start 03/03/19 at 14:00 Furosemide (Lasix) 80 mg BID92 PO ; Start 03/04/19 at 14:00 Insulin Human Lispro (HumaLOG) 0-7 UNITS TIDWMEALS SQ ; Start 03/04/19 at 17:00 Dextrose (Dextrose 50%-Water Syringe) 12.5 gm PRN Q15MIN PRN IV SEE COMMENTS; Start 03/04/19 at 12:30 Active Scripts Active Basaglar Kwikpen U-100 (Insulin Glargine,Hum.rec.anlog) 100 Unit/1 Ml Insuln.pen 8 Unit SQ QHS 30 Days Feosol (Ferrous Sulfate) 325 Mg Tablet 325 Mg PO DAILYWBKFT 30 Days Ventolin Hfa Inhaler (Albuterol Sulfate) 18 Gm Hfa.aer.ad 2 Puff INH Q4HRS Protonix (Pantoprazole Sodium) 40 Mg Tablet.dr 40 Mg PO DAILYAC 60 Days Percocet 10-325 Mg Tablet (Oxycodone/Acetaminophen) 1 Each Tablet 2 Tab PO PRN Q4-6HRS PRN MDD 1 Clopidogrel (Clopidogrel Bisulfate) 75 Mg Tablet 75 Mg PO DAILYWBKFT Ondansetron Odt (Ondansetron) 4 Mg Tab.rapdis 1 Tab PO PRN Q6-8HRS Proair Hfa Inhaler (Albuterol Sulfate) 8.5 Gm Hfa.aer.ad 1 Puff INH PRN Q6HRS PRN Amaryl (Glimepiride) 2 Mg Tablet 2 Mg PO DAILY 30 Days Reported Losartan Potassium 100 Mg Tablet 100 Mg PO DAILY Calcium Carbonate 500 Mg Tablet 1 Tab PO BID 30 Days Amlodipine Besylate 5 Mg Tablet 5 Mg PO DAILY Docusate Sodium 100 Mg Capsule 1 Cap PO BID Metoprolol Tartrate 25 Mg Tablet 25 Mg PO BID Capsaicin 60 Gm Cream..g. 60 Gm TP PRN TID apply to morgan feet Calcium 500 + Vit D 200 Caplet (Calcium Carbonate/Vitamin D3) 1 Each Tablet 1 Each PO DAILY Zolpidem Tartrate 5 Mg Tablet 5 Mg PO QHS Clonazepam (Clonazepam) 0.5 Mg Tablet 0.5 Mg PO TID Fluoxetine Hcl 20 Mg Capsule 1 Cap PO DAILY Furosemide 80 Mg Tablet 80 Mg PO BID Albuterol Sulfate Conc Neb Soln (Albuterol Sulfate) 2.5 Mg/0.5 Ml Vial.neb 5 Mg NEB PRN PRN NITROGLYCERIN SubLingual (Nitroglycerin) 0.4 Mg Tab.subl 0.4 Mg SL PRN Q5MIN PRN Atorvastatin Calcium 20 Mg Tablet 20 Mg PO HS Aspir 81 (Aspirin) 81 Mg Tablet. 1 Tab PO DAILY Vitals/I & O Vital Sign - Last 24 Hours 03/03/19 03/03/19 03/03/19 03/03/19 14:15 16:41 19:00 19:47 Temp 98.3 98.4 98.3 98.4 Pulse 60 60 Resp 18 20 B/P (MAP) 155/68 (97) 159/70 (99) Pulse Ox 99 100 98 98 O2 Delivery Nasal Cannula Nasal Cannula Nasal Cannula Nasal Cannula O2 Flow Rate 2.0 2.0 2.0 2.0 03/03/19 03/03/19 03/03/19 03/03/19 20:08 21:15 22:10 23:00 Temp 98.7 98.7 Pulse 60 65 Resp 20 B/P (MAP) 159/70 158/46 (83) Pulse Ox 96 O2 Delivery Nasal Cannula Nasal Cannula Nasal Cannula O2 Flow Rate 2.0 2.0 2.0 03/04/19 03/04/19 03/04/19 03/04/19 03:00 03:59 05:22 07:00 Temp 98.2 97.9 98.2 97.9 Pulse 60 60 Resp 20 22 20 B/P (MAP) 134/47 (76) 166/70 (102) Pulse Ox 98 97 O2 Delivery Nasal Cannula Nasal Cannula Nasal Cannula Nasal Cannula O2 Flow Rate 2.0 2.0 2.0 2.0 03/04/19 03/04/19 03/04/19 03/04/19 07:55 07:59 08:00 08:00 Pulse 60 60 B/P (MAP) 166/70 166/70 O2 Delivery Nasal Cannula Nasal Cannula O2 Flow Rate 2.0 2.0 03/04/19 03/04/19 03/04/19 03/04/19 08:01 08:12 08:55 10:05 Pulse 60 B/P (MAP) 166/70 Pulse Ox 98 O2 Delivery Nasal Cannula Nasal Cannula Nasal Cannula O2 Flow Rate 2.0 2.0 03/04/19 03/04/19 11:24 12:22 Temp 98.0 98.0 Pulse 60 Resp 20 B/P (MAP) 131/60 (83) Pulse Ox 99 O2 Delivery Nasal Cannula Nasal Cannula O2 Flow Rate 2.0 2.0 Intake and Output 03/03/19 03/03/19 03/04/19 15:00 23:00 07:00 Intake Total 600 ml 1000 ml 400 ml Output Total 400 ml Balance 600 ml 1000 ml 0 ml VENKAT ALEJANDRO MD Mar 04, 2019 12:38
[2019-03-04] MEDS ORDERED: INSULIN LISPRO 300 UNITS/3 ML VIAL. SQ SCH (13:10)
[2019-03-04] MEDS ORDERED: FUROSEMIDE 80 MG TABLET. PO SCH (14:00)
--- NOTE | 2019-03-04 14:41 | NUR ---
Discharge Note: GRETCHEN BONILLA [address] [place] [address] Discharge instructions and discharge home medications reviewed with Patient and a copy given. All questions have been answered and understanding verbalized. The following instructions and handouts were given: marijuana abuse, CHF info, HTN info, discharge instructions. Discontinued lines and drains: Peripheral IV intact. Patient discharged to Home w/services with Family Member via Wheelchair at [id number].
== END 2019-03-04 14:45 | disposition home health service (06) | DRG 291 ==
LOC: ER 14:46 → 2 NORTH 17:03
PROVIDERS: ADMIT Internal Medicine; ATTEND Internal Medicine
DX: I13.0 Hypertensive heart and chronic kidney disease with heart failure and stage 1 through stage 4 chronic kidney disease, or unspecified chronic kidney disease (principal); I50.43 Acute on chronic combined systolic (congestive) and diastolic (congestive) heart failure; Z68.41 Body mass index [BMI] 40.0-44.9, adult; I16.0 Hypertensive urgency; M19.90 Unspecified osteoarthritis, unspecified site; G47.33 Obstructive sleep apnea (adult) (pediatric); E78.00 Pure hypercholesterolemia, unspecified; E11.40 Type 2 diabetes mellitus with diabetic neuropathy, unspecified; I49.5 Sick sinus syndrome; E78.5 Hyperlipidemia, unspecified; G89.4 Chronic pain syndrome; K21.9 Gastro-esophageal reflux disease without esophagitis; J44.9 Chronic obstructive pulmonary disease, unspecified; I25.118 Atherosclerotic heart disease of native coronary artery with other forms of angina pectoris; N18.9 Chronic kidney disease, unspecified; E11.22 Type 2 diabetes mellitus with diabetic chronic kidney disease; I27.81 Cor pulmonale (chronic); E66.01 Morbid (severe) obesity due to excess calories; I45.10 Unspecified right bundle-branch block; F12.90 Cannabis use, unspecified, uncomplicated; R09.02 Hypoxemia; Z96.659 Presence of unspecified artificial knee joint; Z79.4 Long term (current) use of insulin; I25.2 Old myocardial infarction; Z90.710 Acquired absence of both cervix and uterus; Z95.0 Presence of cardiac pacemaker; Z88.8 Allergy status to other drugs, medicaments and biological substances; Z95.1 Presence of aortocoronary bypass graft; Z82.49 Family history of ischemic heart disease and other diseases of the circulatory system
CPT/HCPCS: 36415; 71045; 80053; 80307; 81001; 82962; 83036; 83735; 83880; 84484; 85025; 85610; 87804; 93005; 94640; 94760; 96374; 96375; J1650; J1815; J1940; J2270; J2405; J2930; J7620; 99285-25; G0378

== ENCOUNTER 2019-03-10 14:51 | Observation (INO) | payer OTHER ==
[~2019-03-10] VITALS: Ht 162.6 cm; Wt 109.9 kg
[~2019-03-10 14:51] MED LIST changes: +INSU100I32 SQ
--- NOTE | 2019-03-10 15:25 | PHYS DOC ---
Past Medical History Past Medical History: CHF, COPD, Diabetes-Type II, High Cholesterol, Hype rtension, NV Additional Past Medical Histor: O2 @3 L PRN, chronic pain, NEUROPATHY Past Surgical History: Cholecystectomy, Coronary Bypass Surgery, Hysterectomy, Pacemaker Additional Past Surgical Histo: HERNIA REPAIR, CABG X 2 VESSELS Alcohol Use: None Drug Use: None Adult General Chief Complaint Chief Complaint: SHORTNESS OF BREATH HPI HPI Patient is a 64 year old female with history of hypertension, dyslipidemia, coronary artery disease status post CABG, diabetes, CHF, COPD on 3 L of home oxygen or chronic pain and neuropathy who presents with complaint of shortness o f breath and chest pain. And complaining of shortness of breath since last states her O2 sat was between 86 and 89 without cough, chest pain, fever and chills, nausea and vomiting. Patient states patient woke up this morning she still had shortness of breath. Patient complaining of substernal chest pain that started about 5 hours prior to arrival to ER as a sharp pain with radiation to her back associated with nausea, dizziness, palpitation and increasing shortness of breath. Patient rated her pain 8/10 and stated she 2 baby aspirin and 2 pills of nitroglycerin without change of her pain. Patient had O2 sats of 89% with empty oxygen tank at arrival to ER. Patient has had frequent emergency room visits with complaining of chest pain. Review of Systems Review of Systems Constitutional: Denies fever or chills [] Eyes: Denies change in visual acuity, redness, or eye pain [] HENT: Denies nasal congestion or sore throat [] Respiratory: Denies cough, reports shortness of breath [] Cardiovascular: No additional information not addressed in HPI [] GI: Denies abdominal pain, vomiting, bloody stools or diarrhea, reports nausea [] : Denies dysuria or hematuria [] Musculoskeletal: Denies back pain or joint pain [] Integument: Denies rash or skin lesions [] Neurologic: Denies headache, focal weakness or sensory changes [] Endocrine: Denies polyuria or polydipsia [] All other systems were reviewed and found to be within normal limits, except as documented in this note. Current Medications Current Medications Current Medications Medications (Trade) Dose Ordered Sig/Susan Start Time Stop Time Status Last Admin Dose Admin Aspirin (Children'S Aspirin) 243 mg 1X ONCE 03/10/19 15:30 03/10/19 15:31 DC 03/10/19 16:02 243 MG Nitroglycerin (Nitrostat) 0.4 mg PRN Q5MIN PRN 03/10/19 15:30 03/10/19 17:26 DC 03/10/19 16:01 0.4 MG Ondansetron HCl (Zofran) 4 mg 1X ONCE 03/10/19 15:30 03/10/19 15:31 DC 03/10/19 16:02 4 MG Allergies Allergies Allergies Coded Allergies Type Severity Reaction Last Updated Verified ibuprofen Adverse Reaction Intermediate Nausea and Vomiting 12/02/17 Yes Physical Exam Physical Exam Constitutional: Well developed, well nourished, mild distress, non-toxic appearance. [] HENT: Normocephalic, atraumatic. Eyes: PERRLA, EOMI, conjunctiva normal, no discharge. [] Neck: Normal range of motion, no tenderness, supple, no stridor. [] Cardiovascular:Heart rate regular rhythm, no murmur [] Lungs & Thorax: Bilateral breath sounds clear to auscultation , reproducible substernal chest pain[] Abdomen: Bowel sounds normal, soft, no tenderness, no masses, no pulsatile masses. [] Skin: Warm, dry, no erythema, no rash. [] Back: No tenderness, no CVA tenderness. [] Extremities: No tenderness, no cyanosis, no clubbing, ROM intact, no edema. [] Neurologic: Alert and oriented X 3, no focal deficits noted. [] Psychologic: Affect normal, judgement normal, mood normal. [] Current Patient Data Vital Signs Vital Signs Date Time Temp Pulse Resp B/P (MAP) Pulse Ox O2 Delivery O2 Flow Rate FiO2 03/10/19 14:56 98.2 86 16 222/98 (139) 98 Nasal Cannula 3.0 98.2 Lab Values Laboratory Tests Test 03/10/19 15:03 Urine Opiates Screen Neg (NEG) Urine Methadone Screen Neg (NEG) Urine Barbiturates Neg (NEG) Urine Phencyclidine Screen Neg (NEG) Urine Amphetamine/Methamphetamine Neg (NEG) Urine Benzodiazepines Screen Neg (NEG) Urine Cocaine Screen Neg (NEG) Urine Cannabinoids Screen Neg (NEG) Urine Ethyl Alcohol Neg (NEG) EKG EKG EKG interpreted by me. EKG at 1508 showed normal sinus rhythm at rate of 79, abnormal right superior axis deviation, nonspecific intraventricular block, RVH with repolarization, poor R-wave progress in inferior leads, no acute ST-T wave elevation. Radiology/Procedures Radiology/Procedures [][facility] [address] [place] [address] IMAGING REPORT Signed PATIENT: GRETCHEN BONILLA EACCOUNT: [id number] : 1955 LOCATION: [facility] AGE: 64 SEX: F EXAM STATUS: ADM IN ORD. PHYSICIAN: JO-ANN BLOUNT MD REASON: shortness of breath and chest pain PROCEDURE: PORTABLE CHEST 1V PORTABLE CHEST 1V Clinical indications: Shortness of breath and chest pain. COMPARISON: None available. Findings: No acute lung infiltrate or pleural effusion or pulmonary edema or lung mass or pneumothorax is seen. Heart size is enlarged but stable. Pacemaker and sternotomy are again evident. The pulmonary vasculature, mediastinum and both sharmin are unremarkable. Impression: No acute radiographic abnormality is seen. Electronically signed by: Guero Salas MD (03/10/2019 4:44 PM) [facility] DICTATED and SIGNED BY: GUERO SALAS MD DATE: 03/10/191643 Course & Med Decision Making Course & Med Decision Making Pertinent Labs and Imaging studies reviewed. (See chart for details) Evaluation of patient in ER showed 64-year-old female patient with heart score of 6 and frequent emergency room visits complaining of chest pain and shortness of breath. She had empty oxygen tank at arrival to ER with O2 sat of 89% that improved to 99% with a 3 L of oxygen. Cardiac enzymes was negative. Patient had blood pressure as high as 213/113 and treated with hydralazine.Patient requiring admission for further evaluation and treatment. Discussed with Dr. Keen who is in agreement with admission. Discussed findings and plan with patient and family, who acknowledge understanding and agreement. Dragon Disclaimer Dragon Disclaimer This electronic medical record was generated, in whole or in part, using a voice recognition dictation system. Departure Departure Impression: Primary Impression: Acute chest pain Additional Impressions: Hypertensive urgency Chronic anemia CHF (congestive heart failure) Disposition: ADMITTED INPATIENT (at 1628) Admitting Physician: MAGNUS (Dr. Keen accepted admission at 1627) Condition: IMPROVED Referrals: JENSEN CUEVAS (PCP) The HEART Score for CP Pts HEART Score for Chest Pain: HEART Score for Chest Pain Response (Comments) Value History Moderately Suspicious 1 ECG Nonspecific Repolarizatio 1 Age > 65 2 Risk Factors >3 Risk Factors or Hx CAD 2 Troponin < Normal Limit 0 Total 6 Risk Factors: Risk Factors: DM, Current or recent (<one month) smoker, HTN, HLP, family history of CAD, obesity. Risk Scores: Score 0 - 3: 2.5% MACE over next 6 weeks - Discharge Home Score 4 - 6: 20.3% MACE over next 6 weeks - Admit for Clinical Observation Score 7 - 10: 72.7% MACE over next 6 weeks - Early Invasive Strategies Problem Qualifiers Additional Impressions: CHF (congestive heart failure) Heart failure type: unspecified Heart failure chronicity: unspecified Qualified Codes: I50.9 - Heart failure, unspecified JO-ANN BLOUNT MD Mar 10, 2019 15:25
[2019-03-10] MEDS ORDERED: ASPIRIN CHEWABLE 81 MG TABLET. PO ONE (15:30)
[2019-03-10] MEDS ORDERED: ONDANSETRON PF 4 MG/2 ML VIAL. IV ONE (15:30)
[2019-03-10] MEDS ORDERED: NITROGLYCERIN SUBLINGUAL 0.4 MG BOTTLE OF 25. SL PRN ×2 (15:30→17:30)
[2019-03-10 15:58] LABS: BASO % 1 % (0-3); EOS % 0 % (0-3); HEMATOCRIT 33.1 % (36.0-47.0); HEMOGLOBIN 10.1 g/dL (12.0-15.5); LYMPH # 0.9 x10^3/uL (1.0-4.8); LYMPH % 11 % (24-48); MEAN CORPUSCULAR HEMOGLOBIN 24 pg (25-35); MEAN CORPUSCULAR HGB CONC 30 g/dL (31-37); MEAN CORPUSCULAR VOLUME 80 fL (79-100); MONO # 0.6 x10^3/uL (0.0-1.1); MONO % 7 % (0-9); NEUT # 6.7 x10^3/uL (1.8-7.7); NEUT % 81 % (31-73); PLATELET COUNT 322 x10^3/uL (140-400); RED BLOOD COUNT 4.14 x10^6/uL (3.50-5.40); RED CELL DISTRIBUTION WIDTH 17.7 % (11.5-14.5); WHITE BLOOD COUNT 8.2 x10^3/uL (4.0-11.0)
[2019-03-10 16:16] LABS: CALCIUM 9.2 mg/dL (8.5-10.1); CREATININE 0.7 mg/dL (0.6-1.0); GFR 101.6; POTASSIUM 3.7 mmol/L (3.5-5.1)
[2019-03-10 16:18] LABS: PROTHROMBIN TIME PATIENT 13.1 SEC (11.7-14.0)
[2019-03-10 16:19] LABS: BARBITURATES NEG (NEG); BENZODIAZEPINES NEG (NEG); CANNABINOIDS NEG (NEG); COCAINE NEG (NEG); METHADONE NEG (NEG); OPIATES NEG (NEG); PHENCYCLIDINE NEG (NEG)
[2019-03-10 16:21] LABS: AMPHETAMINE/METHAMPHETAMINE NEG (NEG)
[2019-03-10 16:23] LABS: ALBUMIN 3.4 g/dL (3.4-5.0); ALBUMIN/GLOBULIN RATIO 0.7 (1.0-1.7); MAGNESIUM 2.1 mg/dL (1.8-2.4); TOTAL BILIRUBIN 0.5 mg/dL (0.2-1.0)
[2019-03-10] MEDS ORDERED: hydrALAZINE 20 MG/ML VIAL. IVP ONE (16:30)
[2019-03-10 16:45] VITALS: BP 180/76
--- NOTE | 2019-03-10 16:47 | RAD ---
PORTABLE CHEST 1V Clinical indications: Shortness of breath and chest pain. COMPARISON: None available. Findings: No acute lung infiltrate or pleural effusion or pulmonary edema or lung mass or pneumothorax is seen. Heart size is enlarged but stable. Pacemaker and sternotomy are again evident. The pulmonary vasculature, mediastinum and both sharmin are unremarkable. Impression: No acute radiographic abnormality is seen. Electronically signed by: Dayron Salas MD (03/10/2019 4:44 PM) [facility]
[2019-03-10] MEDS ORDERED: OXYC1TAB22 PO (17:00)
[2019-03-10] MEDS ORDERED: ALBUTEROL SULFATE 2.5 MG/3 ML NEBU. NEB PRN (17:30)
[2019-03-10] MEDS ORDERED: ALBUTEROL SULFATE 5 MG NEB PRN (17:30)
[2019-03-10] MEDS: oxyCODONE/APAP 10/325 1 TAB TABLET PO PRN ×2 (17:53→22:04)
[2019-03-10] MEDS ORDERED: CALCIUM CARB/VIT D3 500/200 TABLET. PO SCH (18:00)
[2019-03-10] MEDS ORDERED: ASPIRIN ENTERIC COATED 81 MG TABLET.DR. PO SCH (18:00)
[2019-03-10] MEDS ORDERED: LOSARTAN POTASSIUM 50 MG TABLET. PO SCH (18:00)
[2019-03-10] MEDS ORDERED: amLODIPine BESYLATE 5 MG TABLET PO SCH (18:00)
[2019-03-10] MEDS ORDERED: FUROSEMIDE 80 MG TABLET. PO SCH (18:00)
[2019-03-10 19:00] VITALS: BP 174/75
[2019-03-10] MEDS: DOCUSATE SODIUM 100 MG CAPSULE. PO SCH (20:30)
[2019-03-10] MEDS: clonazePAM 0.5 MG TABLET PO SCH (20:30)
[2019-03-10] MEDS: METOPROLOL TART IMMED RELEASE 25 MG TABLET. PO SCH (20:31)
[2019-03-10] MEDS ORDERED: ZOLPIDEM 5 MG TABLET. PO SCH (21:00)
[2019-03-10] MEDS ORDERED: INSULIN GLARGINE SYRINGE. SQ SCH (21:00)
[2019-03-10] MEDS ORDERED: ATORVASTATIN CALCIUM 20 MG TABLET PO SCH (21:00)
[2019-03-10 22:04] VITALS: BP 136/60
[2019-03-11] MEDS: oxyCODONE/APAP 10/325 1 TAB TABLET PO PRN ×4 (02:07→14:24)
[2019-03-11 02:10] VITALS: BP 127/50
[2019-03-11] MEDS: CAPSAICIN 0.025% TOPICAL CREAM 60GM TUBE. TP PRN ×2 (06:04→09:10)
--- NOTE | 2019-03-11 06:58 | EKG ---
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
[2019-03-11 07:00] VITALS: BP 121/70
[2019-03-11] MEDS ORDERED: PANTOPRAZOLE 40 MG TABLET.DR. PO SCH (07:30)
[2019-03-11] MEDS ORDERED: CLOPIDOGREL BISULFATE 75 MG TABLET PO SCH (08:00)
[2019-03-11] MEDS ORDERED: FERROUS SULFATE 325 MG TABLET. PO SCH (08:00)
[2019-03-11] MEDS ORDERED: GLIMEPIRIDE 2 MG TABLET. PO SCH (09:00)
[2019-03-11] MEDS ORDERED: ASPIRIN ENTERIC COATED 81 MG TABLET.DR. PO SCH (09:00)
[2019-03-11] MEDS ORDERED: amLODIPine BESYLATE 5 MG TABLET PO SCH (09:00)
[2019-03-11] MEDS ORDERED: FLUoxetine HCL 20 MG CAPSULE PO SCH (09:00)
[2019-03-11] MEDS ORDERED: LOSARTAN POTASSIUM 50 MG TABLET. PO SCH (09:00)
[2019-03-11] MEDS ORDERED: CALCIUM CARB/VIT D3 500/200 TABLET. PO SCH (09:00)
[2019-03-11] MEDS: clonazePAM 0.5 MG TABLET PO SCH ×2 (09:08→14:21)
[2019-03-11] MEDS: FUROSEMIDE 80 MG TABLET. PO SCH ×2 (09:09→14:22)
[2019-03-11] MEDS: DOCUSATE SODIUM 100 MG CAPSULE. PO SCH (09:09)
[2019-03-11] MEDS: METOPROLOL TART IMMED RELEASE 25 MG TABLET. PO SCH (09:10)
[2019-03-11 11:00] VITALS: BP 160/70
--- NOTE | 2019-03-11 11:01 | PDOC3 ---
Discharge Summary Visit Information Date of Admission: Mar 02, 2019 Date of Discharge: Mar 11, 2019 Admitting Diagnosis Comment: non cardiac chest pain OBesity CHF compensated COPD not in flare narc dependence Final Diagnosis Problems Medical Problems: (1) Acute chest pain Status: Acute (2) CHF (congestive heart failure) Status: Acute (3) Chronic anemia Status: Acute (4) Hypertensive urgency Status: Acute Brief Hospital Course Allergies Allergies Coded Allergies Type Severity Reaction Last Updated Verified ibuprofen Adverse Reaction Intermediate Nausea and Vomiting 12/02/17 Yes Vital Signs Vital Signs Date Time Temp Pulse Resp B/P (MAP) Pulse Ox O2 Delivery O2 Flow Rate FiO2 03/11/19 10:15 Nasal Cannula 3.0 03/11/19 09:10 64 121/70 03/11/19 07:05 16 96 03/11/19 07:00 97.3 97.3 Lab Results Laboratory Tests Test 03/10/19 15:03 03/10/19 15:48 03/10/19 17:10 03/10/19 19:30 Urine Opiates Screen Neg (NEG) Urine Methadone Screen Neg (NEG) Urine Barbiturates Neg (NEG) Urine Phencyclidine Screen Neg (NEG) Urine Amphetamine/Methamphetamine Neg (NEG) Urine Benzodiazepines Screen Neg (NEG) Urine Cocaine Screen Neg (NEG) Urine Cannabinoids Screen Neg (NEG) Urine Ethyl Alcohol Neg (NEG) White Blood Count 8.2 x10^3/uL (4.0-11.0) Red Blood Count 4.14 x10^6/uL (3.50-5.40) Hemoglobin 10.1 g/dL (12.0-15.5) Hematocrit 33.1 % (36.0-47.0) Mean Corpuscular Volume 80 fL (79-100) Mean Corpuscular Hemoglobin 24 pg (25-35) Mean Corpuscular Hemoglobin Concent 30 g/dL (31-37) Red Cell Distribution Width 17.7 % (11.5-14.5) Platelet Count 322 x10^3/uL (140-400) Neutrophils (%) (Auto) 81 % (31-73) Lymphocytes (%) (Auto) 11 % (24-48) Monocytes (%) (Auto) 7 % (0-9) Eosinophils (%) (Auto) 0 % (0-3) Basophils (%) (Auto) 1 % (0-3) Neutrophils # (Auto) 6.7 x10^3/uL (1.8-7.7) Lymphocytes # (Auto) 0.9 x10^3/uL (1.0-4.8) Monocytes # (Auto) 0.6 x10^3/uL (0.0-1.1) Eosinophils # (Auto) 0.0 x10^3/uL (0.0-0.7) Basophils # (Auto) 0.0 x10^3/uL (0.0-0.2) Prothrombin Time 13.1 SEC (11.7-14.0) Prothromb Time International Ratio 1.0 (0.8-1.1) Sodium Level 142 mmol/L (136-145) Potassium Level 3.7 mmol/L (3.5-5.1) Chloride Level 99 mmol/L (98-107) Carbon Dioxide Level 40 mmol/L (21-32) Anion Gap 3 (6-14) Blood Urea Nitrogen 10 mg/dL (7-20) Creatinine 0.7 mg/dL (0.6-1.0) Estimated GFR (Cockcroft-Gault) 101.6 BUN/Creatinine Ratio 14 (6-20) Glucose Level 145 mg/dL (70-99) Calcium Level 9.2 mg/dL (8.5-10.1) Magnesium Level 2.1 mg/dL (1.8-2.4) Total Bilirubin 0.5 mg/dL (0.2-1.0) Aspartate Amino Transf (AST/SGOT) 12 U/L (15-37) Alanine Aminotransferase (ALT/SGPT) 12 U/L (14-59) Alkaline Phosphatase 86 U/L (46-116) Creatine Kinase 59 U/L (26-192) Troponin I Quantitative 0.029 ng/mL (0.000-0.055) < 0.017 ng/mL (0.000-0.055) SQ-Hgi-C-Type Natriuretic Peptide 2029 pg/mL (0-124) Total Protein 8.0 g/dL (6.4-8.2) Albumin 3.4 g/dL (3.4-5.0) Albumin/Globulin Ratio 0.7 (1.0-1.7) Lipase 61 U/L (73-393) Glucose (Fingerstick) 128 mg/dL (70-99) Test 03/10/19 20:30 03/10/19 22:15 03/11/19 08:01 Glucose (Fingerstick) 132 mg/dL (70-99) 122 mg/dL (70-99) Troponin I Quantitative < 0.017 ng/mL (0.000-0.055) Laboratory Tests Test 03/10/19 15:03 03/10/19 15:48 03/10/19 17:10 03/10/19 19:30 Urine Opiates Screen Neg (NEG) Urine Methadone Screen Neg (NEG) Urine Barbiturates Neg (NEG) Urine Phencyclidine Screen Neg (NEG) Urine Amphetamine/Methamphetamine Neg (NEG) Urine Benzodiazepines Screen Neg (NEG) Urine Cocaine Screen Neg (NEG) Urine Cannabinoids Screen Neg (NEG) Urine Ethyl Alcohol Neg (NEG) White Blood Count 8.2 x10^3/uL (4.0-11.0) Red Blood Count 4.14 x10^6/uL (3.50-5.40) Hemoglobin 10.1 g/dL (12.0-15.5) Hematocrit 33.1 % (36.0-47.0) Mean Corpuscular Volume 80 fL (79-100) Mean Corpuscular Hemoglobin 24 pg (25-35) Mean Corpuscular Hemoglobin Concent 30 g/dL (31-37) Red Cell Distribution Width 17.7 % (11.5-14.5) Platelet Count 322 x10^3/uL (140-400) Neutrophils (%) (Auto) 81 % (31-73) Lymphocytes (%) (Auto) 11 % (24-48) Monocytes (%) (Auto) 7 % (0-9) Eosinophils (%) (Auto) 0 % (0-3) Basophils (%) (Auto) 1 % (0-3) Neutrophils # (Auto) 6.7 x10^3/uL (1.8-7.7) Lymphocytes # (Auto) 0.9 x10^3/uL (1.0-4.8) Monocytes # (Auto) 0.6 x10^3/uL (0.0-1.1) Eosinophils # (Auto) 0.0 x10^3/uL (0.0-0.7) Basophils # (Auto) 0.0 x10^3/uL (0.0-0.2) Prothrombin Time 13.1 SEC (11.7-14.0) Prothromb Time International Ratio 1.0 (0.8-1.1) Sodium Level 142 mmol/L (136-145) Potassium Level 3.7 mmol/L (3.5-5.1) Chloride Level 99 mmol/L (98-107) Carbon Dioxide Level 40 mmol/L (21-32) Anion Gap 3 (6-14) Blood Urea Nitrogen 10 mg/dL (7-20) Creatinine 0.7 mg/dL (0.6-1.0) Estimated GFR (Cockcroft-Gault) 101.6 BUN/Creatinine Ratio 14 (6-20) Glucose Level 145 mg/dL (70-99) Calcium Level 9.2 mg/dL (8.5-10.1) Magnesium Level 2.1 mg/dL (1.8-2.4) Total Bilirubin 0.5 mg/dL (0.2-1.0) Aspartate Amino Transf (AST/SGOT) 12 U/L (15-37) Alanine Aminotransferase (ALT/SGPT) 12 U/L (14-59) Alkaline Phosphatase 86 U/L (46-116) Creatine Kinase 59 U/L (26-192) Troponin I Quantitative 0.029 ng/mL (0.000-0.055) < 0.017 ng/mL (0.000-0.055) BV-Vwx-L-Type Natriuretic Peptide 2029 pg/mL (0-124) Total Protein 8.0 g/dL (6.4-8.2) Albumin 3.4 g/dL (3.4-5.0) Albumin/Globulin Ratio 0.7 (1.0-1.7) Lipase 61 U/L (73-393) Glucose (Fingerstick) 128 mg/dL (70-99) Test 03/10/19 20:30 03/10/19 22:15 03/11/19 08:01 Glucose (Fingerstick) 132 mg/dL (70-99) 122 mg/dL (70-99) Troponin I Quantitative < 0.017 ng/mL (0.000-0.055) Brief Hospital Course Ms. Laguna is a 64 old who was just here last week for 2 days under a colleagues care with the ff dx:1. Mild acute on chronic diastolic CHF: likely precipitated uncontrolled HTN 2. CAD s/p CABG. EF nml, clinically stable 3. HTN urgency: possibly missed meds with her n/v and abd pain 4. SSS/PPM in situ: [facility]. Paced rhythm, 5. HLP: statin 6. Diabetes, II; no associated hypoglycemia. 7. Presyncope: possibly vagal episode in relation to nausea. 8. Chronic RBBB 9. Morbid obesity: poor endurance due to inability to exercise, obesity and significant LE OA. 10. Atypical CP: suspect GI with recent abd pain and n/v 11. Suspect VIOLETTA: outpt w/u pending 12. Marijuana use SHe was admitted by ER last night for atypical CP with normal TRops x 2 and normal EKG and VS Im discharging today with no change in meds or wrting rx Dd RN at bedside PT disappointed, bargained for 1 more night Dw SW< she has current HH Discharge Information Condition at Discharge: Improved, Stable Disposition/Orders: D/C to Home w/ HH Scheduled Amlodipine Besylate (Amlodipine Besylate) 5 Mg Tablet, 5 MG PO DAILY for HTN, (Reported) Entered as Reported by: CARMEN LAN on 02/03/19 1703 Last Action: Continued on 03/10/191718 by CARMEN LAN Aspirin (Aspir 81) 81 Mg Tablet.dr, 1 TAB PO DAILY, #30 Ref 5 (Reported) Entered as Reported by: FIFI WALSH on 10/28/16 1058 Last Action: Continued on 03/10/191718 by CARMEN LAN Atorvastatin Calcium (Atorvastatin Calcium) 20 Mg Tablet, 20 MG PO HS for FOR CHOLESTEROL, #30 Ref 0 (Reported) Entered as Reported by: FIFI WALSH on 10/28/16 1108 Last Action: Continued on 03/10/191718 by CARMEN LAN Calcium Carbonate/Vitamin D3 (Calcium 500 + Vit D 200 Caplet) 1 Each Tablet, 1 EACH PO DAILY for supplement, (Reported) Entered as Reported by: KENNEY YANG on 05/16/18 2322 Last Action: Continued on 03/10/191718 by CARMEN LAN Capsaicin (Capsaicin) 60 Gm Cream..g., 60 GM TP PRN TID for , (Reported) apply to morgan feet Entered as Reported by: Tiffany Dodson on 07/14/18 2111 Last Action: Continued on 03/10/191718 by CARMEN LAN Clonazepam (Clonazepam ) 0.5 Mg Tablet, 0.5 MG PO TID for anti-anxiety, (Reported) Entered as Reported by: KENNEY YANG on 05/16/18 2322 Last Action: Continued on 03/10/191718 by CARMEN LAN Clopidogrel Bisulfate (Clopidogrel) 75 Mg Tablet, 75 MG PO DAILYWBKFT for heart protection, #30 Prescribed by: LÓPEZ BARRIOS on 11/07/18 1217 Last Action: Continued on 03/10/191718 by CARMEN LAN Docusate Sodium (Docusate Sodium) 100 Mg Capsule, 1 CAP PO BID for constipation, #14 (Reported) Entered as Reported by: MAGDI NUNEZ RN on 12/05/18 0116 Last Action: Continued on 03/10/191718 by CARMEN LAN Ferrous Sulfate (Feosol) 325 Mg Tablet, 325 MG PO DAILYWBKFT for ROXANE for 30 Days, #30 Ref 2 Prescribed by: VENKAT ALEJANDRO MD on 02/16/19 1248 Last Action: Continued on 03/10/191718 by CARMEN LAN Fluoxetine Hcl (Fluoxetine Hcl) 20 Mg Capsule, 1 CAP PO DAILY for anti- depressent, #90 Ref 1 (Reported) Entered as Reported by: KENNEY YANG on 05/16/18 2322 Last Action: Continued on 03/10/191718 by CARMEN LAN Furosemide (Furosemide) 80 Mg Tablet, 80 MG PO BID for heart, (Reported) Entered as Reported by: NAM MORTENSEN on 10/09/17 1408 Last Action: Continued on 03/10/191718 by CARMEN LAN Glimepiride (Amaryl) 2 Mg Tablet, 2 MG PO DAILY for 30 Days, #30 Prescribed by: RADHA PIERRE MD on 07/04/17 1010 Last Action: Continued on 03/10/191718 by CARMEN LAN Insulin Glargine,Hum.rec.anlog (Basaglar Kwikpen U-100) 100 Unit/1 Ml Insuln.pen, 8 UNIT SQ QHS for DM2 for 30 Days, #3 Ref 2 Prescribed by: VENKAT ALEJANDRO MD on 03/04/19 1230 Last Action: Converted on 03/10/191718 by CARMEN LAN Losartan Potassium (Losartan Potassium) 100 Mg Tablet, 100 MG PO DAILY for HTN, (Reported) Entered as Reported by: CARMEN LAN on 02/03/19 170 Last Action: Converted on 03/10/191718 by CARMEN LAN Metoprolol Tartrate (Metoprolol Tartrate) 25 Mg Tablet, 25 MG PO BID for FOR HYPERTENSION, #60 Ref 0 (Reported) Entered as Reported by: JOVANNY MORALES on 08/30/18 2320 Last Action: Continued on 03/10/191718 by CARMEN LAN Ondansetron (Ondansetron Odt) 4 Mg Tab.rapdis, 1 TAB PO PRN Q6-8HRS, #16 Prescribed by: Celine Cevallos APRN on 08/13/18 2106 Pantoprazole Sodium (Protonix ) 40 Mg Tablet.dr, 40 MG PO DAILYAC for GERD for 60 Days, #60 Prescribed by: CATHIE KNIGHT on 01/29/19 0857 Last Action: Continued on 03/10/191718 by CARMEN LAN Zolpidem Tartrate (Zolpidem Tartrate) 5 Mg Tablet, 5 MG PO QHS for insomnia, Ref 0 (Reported) Entered as Reported by: KENNEY YANG on 05/16/182321 Last Action: Continued on 03/10/191718 by CARMEN LAN Scheduled PRN Albuterol Sulfate (Proair Hfa Inhaler) 8.5 Gm Hfa.aer.ad, 1 PUFF INH PRN Q6HRS PRN for SHORTNESS OF BREATH, #1 Ref 0 Prescribed by: MILLER ORTIZ MD on 06/21/18 171 Nitroglycerin (NITROGLYCERIN SubLingual) 0.4 Mg Tab.subl, 0.4 MG SL PRN Q5MIN PRN for CHEST PAIN, (Reported) Entered as Reported by: LOYDA CELAYA RN on 11/01/16 0013 Last Action: Continued on 03/10/191718 by CARMEN LAN Oxycodone/Apap 10-325 (Percocet 10-325 Mg Tablet ) 1 Each Tablet, 2 TAB PO PRN Q4HRS PRN for PAIN, Ref 0 (Reported) Entered as Reported by: CRAMEN LAN on 03/10/191699 Last Action: Continued on 03/10/191718 by CARMEN LAN Discontinued Medications Albuterol Sulfate (Albuterol Sulfate Conc Neb Soln) 2.5 Mg/0.5 Ml Vial.neb, 5 MG NEB PRN PRN for WHEEZING, Ref 0 (Reported) Entered as Reported by: ROMY PHELAN on 10/07/172035 Last Action: Converted on 03/10/191718 by CATHIE VIDAL MD Mar 11, 2019 11:01
--- NOTE | 2019-03-11 11:12 | PDOC1 ---
History and Physical Date of Admission Date of Admission DATE: 03/11/19 TIME: 11:01 Identification/Chief Complaint Chief Complaint cp Source Source: Caregiver, Chart review, Patient History of Present Illness History of Present Illness 64 AA female, CHESTPAIn again that based on symptomatology and initial work up is non cardiac, CXR normal, trops neg x 2 Admitted OBS Was just here last week for the ff dx: co managed with cards too that time 1. Mild acute on chronic diastolic CHF: likely precipitated uncontrolled HTN 2. CAD s/p CABG. EF nml, clinically stable 3. HTN urgency: possibly missed meds with her n/v and abd pain 4. SSS/PPM in situ: [facility]. Paced rhythm, 5. HLP: statin 6. Diabetes, II; no associated hypoglycemia. 7. Presyncope: possibly vagal episode in relation to nausea. 8. Chronic RBBB 9. Morbid obesity: poor endurance due to inability to exercise, obesity and significant LE OA. 10. Atypical CP: suspect GI with recent abd pain and n/v 11. Suspect VILOETTA: outpt w/u pending 12. Marijuana use Past Medical History Cardiovascular: CAD, CHF, HTN, AL, Hyperlipidemia, Other Pulmonary: Bronchitis, COPD CENTRAL NERVOUS SYSTEM: Periperal neuropathy GI: GERD Heme/Onc: No pertinent hx Hepatobiliary: Cholelithiasis Psych: No pertinent hx Musculoskeletal: Osteoarthritis, Weakness Rheumatologic: No pertinent hx Infectious disease: No pertinent hx Renal/: Chronic renal insuff Endocrine: Diabetes Past Surgical History Past Surgical History: Pacemaker, Appendectomy, Cholecystectomy, CABG, Total knee replacement, Hysterectomy Family History Family History: Heart Disease Family History: Parent Social History Smoke: No ALCOHOL: none Drugs: Marijuana Current Problem List Problem List Problems Medical Problems: (1) Acute chest pain Status: Acute (2) CHF (congestive heart failure) Status: Acute (3) Chronic anemia Status: Acute (4) Hypertensive urgency Status: Acute Current Medications Current Medications Current Medications Aspirin (Children'S Aspirin) 243 mg 1X ONCE PO Last administered on 03/10/19at 16:02; Start 03/10/19 at 15:30; Stop 03/10/19 at 15:31; Status DC Nitroglycerin (Nitrostat) 0.4 mg PRN Q5MIN PRN SL CP RATING > 1/10 Last administered on 03/10/19at 16:01; Start 03/10/19 at 15:30; Stop 03/10/19 at 17:26; Status DC Ondansetron HCl (Zofran) 4 mg 1X ONCE IV Last administered on 03/10/19at 16:02; Start 03/10/19 at 15:30; Stop 03/10/19 at 15:31; Status DC Hydralazine HCl (Apresoline Inj) 10 mg 1X ONCE IVP Last administered on 03/10/19at 16:31; Start 03/10/19 at 16:30; Stop 03/10/19 at 16:31; Status DC Amlodipine Besylate (Norvasc) 5 mg DAILY PO ; Start 03/10/19 at 18:00; Stop 03/10/19 at 17:33; Status DC Aspirin (Ecotrin) 81 mg DAILY PO ; Start 03/10/19 at 18:00; Stop 03/10/19 at 17:33; Status DC Atorvastatin Calcium (Lipitor) 20 mg HS PO Last administered on 03/10/19at 20:30; Start 03/10/19 at 21:00 Calcium/Vitamin D (Oscal D 500mg/ 200uts) 1 tab DAILY PO ; Start 03/10/19 at 18:00; Stop 03/10/19 at 17:33; Status DC Capsaicin (Zostrix) 1 tre PRN TID PRN TP PAIN Last administered on 03/11/19 09:10; Start 03/10/19 at 17:30 Clonazepam (KlonoPIN) 0.5 mg TID PO Last administered on 03/11/19at 09:08; Start 03/10/19 at 21:00 Clopidogrel Bisulfate (Plavix) 75 mg DAILYWBKFT PO Last administered on 03/11/19 09:09; Start 03/11/19 at 08:00 Docusate Sodium (Colace) 100 mg BID PO Last administered on 03/11/19 09:09; Start 03/10/19 at 21:00 Ferrous Sulfate (Feosol) 325 mg DAILYWBKFT PO Last administered on 03/11/19 09:09; Start 03/11/19 at 08:00 Fluoxetine HCl (PROzac) 20 mg DAILY PO Last administered on 03/11/19 09:09; Start 03/11/19 at 09:00 Furosemide (Lasix) 80 mg BID66 PO ; Start 03/10/19 at 18:00; Stop 03/10/19 at 17:33; Status DC Glimepiride (Amaryl) 2 mg DAILY PO Last administered on 03/11/19 09:09; Start 03/11/19 at 09:00 Metoprolol Tartrate (Lopressor) 25 mg BID PO Last administered on 03/11/19 09:10; Start 03/10/19 at 21:00 Nitroglycerin (Nitrostat) 0.4 mg PRN Q5MIN PRN SL CHEST PAIN; Start 03/10/19 at 17:30 Oxycodone/ Acetaminophen (Percocet 10/325) 2 tab PRN Q4HRS PRN PO PAIN Last administered on 03/11/19 10:15; Start 03/10/19 at 17:30 Pantoprazole Sodium (Protonix) 40 mg DAILYAC PO Last administered on 03/11/19 06:04; Start 03/11/19 at 07:30 Zolpidem Tartrate (Ambien) 5 mg QHS PO Last administered on 03/10/19 20:30; Start 03/10/19 at 21:00 Non-Formulary Medication (Albuterol Sulfate (Albuterol Sulfate Conc Neb Soln)) 5 mg PRN PRN NEB WHEEZING; Start 03/10/19 at 17:30; Status UNV Insulin Glargine (Lantus Syringe) 8 unit QHS SQ Last administered on 03/10/19at 20:32; Start 03/10/19 at 21:00 Losartan Potassium (Cozaar) 100 mg DAILY PO ; Start 03/10/19 at 18:00; Stop 03/10/19 at 17:33; Status DC Albuterol Sulfate (Ventolin Neb Soln) 2.5 mg PRN Q4HRS PRN NEB SHORTNESS OF BREATH Last administered on 03/10/19 20:20; Start 03/10/19 at 17:30 Amlodipine Besylate (Norvasc) 5 mg DAILY PO Last administered on 03/11/19 09:10; Start 03/11/19 at 09:00 Aspirin (Ecotrin) 81 mg DAILY PO Last administered on 03/11/19 09:09; Start 03/11/19 at 09:00 Calcium/Vitamin D (Oscal D 500mg/ 200uts) 1 tab DAILY PO Last administered on 03/11/19at 09:08; Start 03/11/19 at 09:00 Furosemide (Lasix) 80 mg BID92 PO Last administered on 03/11/19at 09:09; Start 03/11/19 at 09:00 Losartan Potassium (Cozaar) 100 mg DAILY PO Last administered on 03/11/19at 09:08; Start 03/11/19 at 09:00 Active Scripts Active Basaglar Bettypen U-100 (Insulin Glargine,Hum.rec.anlog) 100 Unit/1 Ml Insuln.pen 8 Unit SQ QHS 30 Days Feosol (Ferrous Sulfate) 325 Mg Tablet 325 Mg PO DAILYWBKFT 30 Days Protonix (Pantoprazole Sodium) 40 Mg Tablet.dr 40 Mg PO DAILYAC 60 Days Clopidogrel (Clopidogrel Bisulfate) 75 Mg Tablet 75 Mg PO DAILYWBKFT Ondansetron Odt (Ondansetron) 4 Mg Tab.rapdis 1 Tab PO PRN Q6-8HRS Proair Hfa Inhaler (Albuterol Sulfate) 8.5 Gm Hfa.aer.ad 1 Puff INH PRN Q6HRS PRN Amaryl (Glimepiride) 2 Mg Tablet 2 Mg PO DAILY 30 Days Reported Percocet 10-325 Mg Tablet (Oxycodone/Acetaminophen) 1 Each Tablet 2 Tab PO PRN Q4HRS PRN Losartan Potassium 100 Mg Tablet 100 Mg PO DAILY Amlodipine Besylate 5 Mg Tablet 5 Mg PO DAILY Docusate Sodium 100 Mg Capsule 1 Cap PO BID Metoprolol Tartrate 25 Mg Tablet 25 Mg PO BID Capsaicin 60 Gm Cream..g. 60 Gm TP PRN TID apply to morgan feet Calcium 500 + Vit D 200 Caplet (Calcium Carbonate/Vitamin D3) 1 Each Tablet 1 Each PO DAILY Zolpidem Tartrate 5 Mg Tablet 5 Mg PO QHS Clonazepam (Clonazepam) 0.5 Mg Tablet 0.5 Mg PO TID Fluoxetine Hcl 20 Mg Capsule 1 Cap PO DAILY Furosemide 80 Mg Tablet 80 Mg PO BID NITROGLYCERIN SubLingual (Nitroglycerin) 0.4 Mg Tab.subl 0.4 Mg SL PRN Q5MIN PRN Atorvastatin Calcium 20 Mg Tablet 20 Mg PO HS Aspir 81 (Aspirin) 81 Mg Tablet.dr 1 Tab PO DAILY Allergies Allergies: Coded Allergies: ibuprofen (Verified Adverse Reaction, Intermediate, Nausea and Vomiting, 12/02/17) ROS Review of System as per HPI Physical Exam General: Alert, Oriented X3, Cooperative, No acute distress HEENT: Atraumatic, PERRLA, EOMI Lungs: Clear to auscultation, Normal air movement Heart: S1S2, RRR, no thrills, no rubs, no gallops, no murmurs Cardiovascular: S1, S2 Abdomen: Normal bowel sounds, Soft, No tenderness, No hepatosplenomegaly, No masses Rectal Exam: not examined PELVIC: Nml ext genitalia Extremities: No clubbing, No cyanosis, No edema, Normal pulses, No tenderness/swelling Skin: No rashes, No breakdown, No significant lesion Neuro: Normal gait, Normal speech, Strength at 5/5 X4 ext, Normal tone, Sensation intact, Cranial nerves 3-12 NL, Reflexes 2+ Psych/Mental Status: Mental status NL, Mood NL Vitals Vitals Vital Signs Date Time Temp Pulse Resp B/P (MAP) Pulse Ox O2 Delivery O2 Flow Rate FiO2 03/11/19 10:15 Nasal Cannula 3.0 03/11/19 09:10 64 121/70 03/11/19 07:05 16 96 03/11/19 07:00 97.3 97.3 Labs Labs Laboratory Tests Test 03/10/19 15:03 03/10/19 15:48 03/10/19 17:10 03/10/19 19:30 Urine Opiates Screen Neg (NEG) Urine Methadone Screen Neg (NEG) Urine Barbiturates Neg (NEG) Urine Phencyclidine Screen Neg (NEG) Urine Amphetamine/Methamphetamine Neg (NEG) Urine Benzodiazepines Screen Neg (NEG) Urine Cocaine Screen Neg (NEG) Urine Cannabinoids Screen Neg (NEG) Urine Ethyl Alcohol Neg (NEG) White Blood Count 8.2 x10^3/uL (4.0-11.0) Red Blood Count 4.14 x10^6/uL (3.50-5.40) Hemoglobin 10.1 g/dL (12.0-15.5) Hematocrit 33.1 % (36.0-47.0) Mean Corpuscular Volume 80 fL (79-100) Mean Corpuscular Hemoglobin 24 pg (25-35) Mean Corpuscular Hemoglobin Concent 30 g/dL (31-37) Red Cell Distribution Width 17.7 % (11.5-14.5) Platelet Count 322 x10^3/uL (140-400) Neutrophils (%) (Auto) 81 % (31-73) Lymphocytes (%) (Auto) 11 % (24-48) Monocytes (%) (Auto) 7 % (0-9) Eosinophils (%) (Auto) 0 % (0-3) Basophils (%) (Auto) 1 % (0-3) Neutrophils # (Auto) 6.7 x10^3/uL (1.8-7.7) Lymphocytes # (Auto) 0.9 x10^3/uL (1.0-4.8) Monocytes # (Auto) 0.6 x10^3/uL (0.0-1.1) Eosinophils # (Auto) 0.0 x10^3/uL (0.0-0.7) Basophils # (Auto) 0.0 x10^3/uL (0.0-0.2) Prothrombin Time 13.1 SEC (11.7-14.0) Prothromb Time International Ratio 1.0 (0.8-1.1) Sodium Level 142 mmol/L (136-145) Potassium Level 3.7 mmol/L (3.5-5.1) Chloride Level 99 mmol/L (98-107) Carbon Dioxide Level 40 mmol/L (21-32) Anion Gap 3 (6-14) Blood Urea Nitrogen 10 mg/dL (7-20) Creatinine 0.7 mg/dL (0.6-1.0) Estimated GFR (Cockcroft-Gault) 101.6 BUN/Creatinine Ratio 14 (6-20) Glucose Level 145 mg/dL (70-99) Calcium Level 9.2 mg/dL (8.5-10.1) Magnesium Level 2.1 mg/dL (1.8-2.4) Total Bilirubin 0.5 mg/dL (0.2-1.0) Aspartate Amino Transf (AST/SGOT) 12 U/L (15-37) Alanine Aminotransferase (ALT/SGPT) 12 U/L (14-59) Alkaline Phosphatase 86 U/L (46-116) Creatine Kinase 59 U/L (26-192) Troponin I Quantitative 0.029 ng/mL (0.000-0.055) < 0.017 ng/mL (0.000-0.055) AA-Lpk-P-Type Natriuretic Peptide 2029 pg/mL (0-124) Total Protein 8.0 g/dL (6.4-8.2) Albumin 3.4 g/dL (3.4-5.0) Albumin/Globulin Ratio 0.7 (1.0-1.7) Lipase 61 U/L (73-393) Glucose (Fingerstick) 128 mg/dL (70-99) Test 03/10/19 20:30 03/10/19 22:15 03/11/19 08:01 Glucose (Fingerstick) 132 mg/dL (70-99) 122 mg/dL (70-99) Troponin I Quantitative < 0.017 ng/mL (0.000-0.055) Laboratory Tests Test 03/10/19 15:03 03/10/19 15:48 03/10/19 17:10 03/10/19 19:30 Urine Opiates Screen Neg (NEG) Urine Methadone Screen Neg (NEG) Urine Barbiturates Neg (NEG) Urine Phencyclidine Screen Neg (NEG) Urine Amphetamine/Methamphetamine Neg (NEG) Urine Benzodiazepines Screen Neg (NEG) Urine Cocaine Screen Neg (NEG) Urine Cannabinoids Screen Neg (NEG) Urine Ethyl Alcohol Neg (NEG) White Blood Count 8.2 x10^3/uL (4.0-11.0) Red Blood Count 4.14 x10^6/uL (3.50-5.40) Hemoglobin 10.1 g/dL (12.0-15.5) Hematocrit 33.1 % (36.0-47.0) Mean Corpuscular Volume 80 fL (79-100) Mean Corpuscular Hemoglobin 24 pg (25-35) Mean Corpuscular Hemoglobin Concent 30 g/dL (31-37) Red Cell Distribution Width 17.7 % (11.5-14.5) Platelet Count 322 x10^3/uL (140-400) Neutrophils (%) (Auto) 81 % (31-73) Lymphocytes (%) (Auto) 11 % (24-48) Monocytes (%) (Auto) 7 % (0-9) Eosinophils (%) (Auto) 0 % (0-3) Basophils (%) (Auto) 1 % (0-3) Neutrophils # (Auto) 6.7 x10^3/uL (1.8-7.7) Lymphocytes # (Auto) 0.9 x10^3/uL (1.0-4.8) Monocytes # (Auto) 0.6 x10^3/uL (0.0-1.1) Eosinophils # (Auto) 0.0 x10^3/uL (0.0-0.7) Basophils # (Auto) 0.0 x10^3/uL (0.0-0.2) Prothrombin Time 13.1 SEC (11.7-14.0) Prothromb Time International Ratio 1.0 (0.8-1.1) Sodium Level 142 mmol/L (136-145) Potassium Level 3.7 mmol/L (3.5-5.1) Chloride Level 99 mmol/L (98-107) Carbon Dioxide Level 40 mmol/L (21-32) Anion Gap 3 (6-14) Blood Urea Nitrogen 10 mg/dL (7-20) Creatinine 0.7 mg/dL (0.6-1.0) Estimated GFR (Cockcroft-Gault) 101.6 BUN/Creatinine Ratio 14 (6-20) Glucose Level 145 mg/dL (70-99) Calcium Level 9.2 mg/dL (8.5-10.1) Magnesium Level 2.1 mg/dL (1.8-2.4) Total Bilirubin 0.5 mg/dL (0.2-1.0) Aspartate Amino Transf (AST/SGOT) 12 U/L (15-37) Alanine Aminotransferase (ALT/SGPT) 12 U/L (14-59) Alkaline Phosphatase 86 U/L (46-116) Creatine Kinase 59 U/L (26-192) Troponin I Quantitative 0.029 ng/mL (0.000-0.055) < 0.017 ng/mL (0.000-0.055) HI-Jfl-J-Type Natriuretic Peptide 2029 pg/mL (0-124) Total Protein 8.0 g/dL (6.4-8.2) Albumin 3.4 g/dL (3.4-5.0) Albumin/Globulin Ratio 0.7 (1.0-1.7) Lipase 61 U/L (73-393) Glucose (Fingerstick) 128 mg/dL (70-99) Test 03/10/19 20:30 03/10/19 22:15 03/11/19 08:01 Glucose (Fingerstick) 132 mg/dL (70-99) 122 mg/dL (70-99) Troponin I Quantitative < 0.017 ng/mL (0.000-0.055) VTE Prophylaxis Ordered VTE Prophylaxis Devices: Yes VTE Pharmacological Prophylaxi: Yes Assessment/Plan Assessment/Plan NOn cardiac CP Obesity COPD< CHF< stable NArc dependence' Depression PLAN: HOme today CATHIE KNIGHT MD Mar 11, 2019 11:12
--- NOTE | 2019-03-11 12:33 | NUR ---
SS following for discharge planning. SS reviewed pt chart. Pt is from home and is currently on oxygen. Pt has home oxygen at home. Pt was previously on services with [facility], ; fax [phone]. SS phoned and faxed clinical to [facility]. Discharge order on the chart.
[2019-03-11 15:00] VITALS: BP 116/53
--- NOTE | 2019-03-11 18:08 | SNU/HH DC ---
DISCHARGE WITH HOME HEALTH DISCHARGE INFORMATION: Discharge Date: Mar 11, 2019 Final Diagnosis: Problems Medical Problems: (1) Acute chest pain Status: Acute (2) CHF (congestive heart failure) Status: Acute (3) Chronic anemia Status: Acute (4) Hypertensive urgency Status: Acute Condition on Discharge: Stable CODE STATUS: Code Status: Full HOME HEALTH: Face to Face: I certify this patient is under my care and that I, or a nurse practitioner or physician's admissions assistant working with me, had a face to face encounter that meets the physician face to face encounter requirements with this patient on []. Medical Complications: CHF, COPD RN For Eval/Treatment: Yes Physical Therapy For: Evalulation/Treatment Occupational Therapy For: Evaluation/Treatment Home Health Aide For: Self-care RENTAL AGENT For: Community Resources Pt Meets Homebound Status: Unsteady balance w/ amb, POST DISCHARGE ORDERS: Activity Instructions for Disc: Activity as tolerated Weight Bearing Status after Di: As tolerated DIET AFTER DISCHARGE: Cardiac Wound/Incision Care: No wound care needed CHECKS AFTER DISCHARGE: Checks after discharge: Check blood press - daily, Check blood sugar, ac/hs, Check your Temp as needed, Weigh Yourself Daily TREATMENT/EQUIPMENT ORDERS: Adaptive Equipment Issued: Walker Discharge Respiratory Equipmen: Oxygen CERTIFICATION STATEMENT: Certification Statement: Certification Statement: Based on the above finding, I certify that this patient is confined to the home and needs intermittent fci care, physical therapy and/or speech therapy, or continues to need occupational therapy.~ This patient is under my care, and I have initiated the establishment of the plan of care.~ This patient will be followed by myself or a community physician who will periodically review the plan of care. Home Meds Active Scripts Insulin Glargine,Hum.rec.anlog (Kamaljitaglar Kwikpen U-100) 100 Unit/1 Ml Insuln.pen, 8 UNIT SQ QHS for DM2 for 30 Days, #3 EACH 2 Refills Prov:VENKAT ALEJANDRO MD 03/04/19 Ferrous Sulfate (FEOSOL) 325 Mg Tablet, 325 MG PO DAILYWBKFT for ROXANE for 30 Days, #30 TAB 2 Refills Prov:VENKAT ALEJANDRO MD 02/16/19 Pantoprazole Sodium (PROTONIX ) 40 Mg Tablet.dr, 40 MG PO DAILYAC for GERD for 60 Days, #60 TAB Prov:TERMULO,CATHIE Y MD 01/29/19 Clopidogrel Bisulfate (CLOPIDOGREL) 75 Mg Tablet, 75 MG PO DAILYWBKFT for heart protection, #30 TAB Prov:LÓPEZ BARRIOS MD 11/07/18 Ondansetron (ONDANSETRON ODT) 4 Mg Tab.rapdis, 1 TAB PO PRN Q6-8HRS, #16 TAB Prov:DESMOND CARSON MEDICATION TECHNICIAN 08/13/18 Albuterol Sulfate (PROAIR HFA INHALER) 8.5 Gm Hfa.aer.ad, 1 PUFF INH PRN Q6HRS PRN for SHORTNESS OF BREATH, #1 INHALER 0 Refills Prov:MILLER ORTIZ MD 06/21/18 Glimepiride (AMARYL) 2 Mg Tablet, 2 MG PO DAILY for 30 Days, #30 TAB Prov:RADHA PIERRE MD 07/04/17 Reported Medications Oxycodone/Apap 10-325 (PERCOCET 10-325 MG TABLET ) 1 Each Tablet, 2 TAB PO PRN Q4HRS PRN for PAIN, TAB 0 Refills 03/10/19 Losartan Potassium (LOSARTAN POTASSIUM) 100 Mg Tablet, 100 MG PO DAILY for HTN 02/03/19 Amlodipine Besylate (AMLODIPINE BESYLATE) 5 Mg Tablet, 5 MG PO DAILY for HTN, TAB 02/03/19 Docusate Sodium (DOCUSATE SODIUM) 100 Mg Capsule, 1 CAP PO BID for constipation, #14 CAP 12/05/18 Metoprolol Tartrate (METOPROLOL TARTRATE) 25 Mg Tablet, 25 MG PO BID for FOR HYPERTENSION, #60 TAB 0 Refills 08/30/18 Capsaicin (CAPSAICIN) 60 Gm Cream..g., 60 GM TP PRN TID for , EACH apply to morgan feet 07/14/18 Calcium Carbonate/Vitamin D3 (CALCIUM 500 + VIT D 200 CAPLET) 1 Each Tablet, 1 EACH PO DAILY for supplement, TAB 05/16/18 Zolpidem Tartrate (ZOLPIDEM TARTRATE) 5 Mg Tablet, 5 MG PO QHS for insomnia, TAB 0 Refills 05/16/18 Clonazepam (CLONAZEPAM ) 0.5 Mg Tablet, 0.5 MG PO TID for anti-anxiety, TAB 05/16/18 Fluoxetine Hcl (FLUOXETINE HCL) 20 Mg Capsule, 1 CAP PO DAILY for anti- depressent, #90 CAP 1 Refill 05/16/18 Furosemide (FUROSEMIDE) 80 Mg Tablet, 80 MG PO BID for heart, TAB 10/09/17 Nitroglycerin (NITROGLYCERIN SubLingual) 0.4 Mg Tab.subl, 0.4 MG SL PRN Q5MIN PRN for CHEST PAIN, BOTTLE 11/01/16 Atorvastatin Calcium (ATORVASTATIN CALCIUM) 20 Mg Tablet, 20 MG PO HS for FOR CHOLESTEROL, #30 TAB 0 Refills 10/28/16 Aspirin (ASPIR 81) 81 Mg Tablet.dr, 1 TAB PO DAILY, #30 TAB 5 Refills 10/28/16 Discontinued Reported Medications Albuterol Sulfate (ALBUTEROL SULFATE CONC NEB SOLN) 2.5 Mg/0.5 Ml Vial.neb, 5 MG NEB PRN PRN for WHEEZING, EACH 0 Refills 10/07/17 CATHIE KNIGHT MD Mar 11, 2019 18:08
--- NOTE | 2019-03-11 18:28 | NUR ---
Discharge Note: GRETCHEN BONILLA [address] Discharge instructions and discharge home medications reviewed with Patient and a copy given. All questions have been answered and understanding verbalized. The following instructions and handouts were given: CP, SOA Discontinued lines and drains: Peripheral IV intact. Patient discharged to Home w/services with wheelchair van personnel via Wheelchair
== END 2019-03-11 18:05 | disposition home health service (06) ==
LOC: ER 14:51 → INTOOBSV 15:44 → 2 SOUTH 15:44
PROVIDERS: ADMIT Internal Medicine; ATTEND Internal Medicine
DX: R07.89 Other chest pain (principal); I16.0 Hypertensive urgency; I11.0 Hypertensive heart disease with heart failure; I50.9 Heart failure, unspecified; D50.0 Iron deficiency anemia secondary to blood loss (chronic); I25.2 Old myocardial infarction; E78.5 Hyperlipidemia, unspecified; E11.9 Type 2 diabetes mellitus without complications; J44.9 Chronic obstructive pulmonary disease, unspecified; Z90.49 Acquired absence of other specified parts of digestive tract; Z95.1 Presence of aortocoronary bypass graft; Z90.710 Acquired absence of both cervix and uterus; Z95.0 Presence of cardiac pacemaker
CPT/HCPCS: 36415; 71045; 80053; 80307; 82550; 82962; 83690; 83735; 83880; 84484; 85025; 85610; 93005; 94640; 96372; 96374; 96375; 99284; G0378; J0360; J1815; J2405; J7613; G0379

== ENCOUNTER 2019-03-13 13:29 | Inpatient (IN) | payer OTHER ==
[~2019-03-13] VITALS: Ht 162.6 cm; Wt 107.7 kg
[2019-03-13 14:39] LABS: BASO # 0.1 x10^3/uL (0.0-0.2); BASO % 1 % (0-3); EOS % 0 % (0-3); HEMATOCRIT 33.8 % (36.0-47.0); HEMOGLOBIN 10.5 g/dL (12.0-15.5); LYMPH # 0.9 x10^3/uL (1.0-4.8); LYMPH % 10 % (24-48); MEAN CORPUSCULAR HEMOGLOBIN 25 pg (25-35); MEAN CORPUSCULAR HGB CONC 31 g/dL (31-37); MEAN CORPUSCULAR VOLUME 80 fL (79-100); MONO # 0.7 x10^3/uL (0.0-1.1); MONO % 8 % (0-9); NEUT # 6.8 x10^3/uL (1.8-7.7); NEUT % 81 % (31-73); PLATELET COUNT 330 x10^3/uL (140-400); RED BLOOD COUNT 4.23 x10^6/uL (3.50-5.40); RED CELL DISTRIBUTION WIDTH 18.1 % (11.5-14.5); WHITE BLOOD COUNT 8.4 x10^3/uL (4.0-11.0)
[2019-03-13 14:50] LABS: CALCIUM 10.2 mg/dL (8.5-10.1); CREATININE 0.8 mg/dL (0.6-1.0); GFR 87.1
[2019-03-13 14:56] LABS: ALBUMIN 3.4 g/dL (3.4-5.0); ALBUMIN/GLOBULIN RATIO 0.7 (1.0-1.7); TOTAL BILIRUBIN 0.5 mg/dL (0.2-1.0); TOTAL PROTEIN 8.4 g/dL (6.4-8.2)
[2019-03-13] MEDS ORDERED: hydrALAZINE 20 MG/ML VIAL. IVP ONE (15:00)
--- NOTE | 2019-03-13 15:26 | RAD ---
PORTABLE CHEST 1V History: Shortness of breath Comparison: March 10, 2019 Findings: No consolidation or pleural effusion. Cardiomegaly, unchanged. No pneumothorax. Unchanged left-sided pacemaker. Prior median sternotomy. Impression: 1. No acute cardiopulmonary process. Electronically signed by: Jaydon Machado DO (03/13/2019 3:24 PM) [facility]
[2019-03-13] MEDS ORDERED: HYDROcodone/APAP 5/325MG 1 TAB TABLET PO ONE (15:45)
--- NOTE | 2019-03-13 16:09 | PHYS DOC ---
Past Medical History Past Medical History: CHF, COPD, Diabetes-Type II, High Cholesterol, Hypertension, DE, Other Additional Past Medical Histor: O2 @3 L PRN, chronic pain, NEUROPATHY Past Surgical History: Cholecystectomy, Coronary Bypass Surgery, Hysterectomy, Pacemaker Additional Past Surgical Histo: HERNIA REPAIR, CABG X 2 VESSELS Alcohol Use: None Drug Use: None Adult General Chief Complaint Chief Complaint: SHORTNESS OF BREATH [facility] HPI Patient is a 64 year old female patient with history of hypertension, dyslipidemia, CHF, coronary artery disease, COPD on home oxygen who presents with complaint of shortness of breath. Patient has had frequent emergency room visits and was admitted on March 10 and discharged in March 11 with complaining of shortness of breath and right-sided chest pain and states she still has chest pain in right side of her chest for several days and also complaining of shortness of breath because of not having reports of breath oxy gen tank and has to arrival without oxygen. Patient had O2 sats of 88% at arrival to ER that increased with oxygen to 99% problem. Review of Systems Review of Systems Constitutional: Denies fever or chills [] Eyes: Denies change in visual acuity, redness, or eye pain [] HENT: Denies nasal congestion or sore throat [] Respiratory: Denies cough, reports shortness of breath [] Cardiovascular: No additional information not addressed in HPI [] GI: Denies abdominal pain, nausea, vomiting, bloody stools or diarrhea [] : Denies dysuria or hematuria [] Musculoskeletal: Denies back pain or joint pain [] Integument: Denies rash or skin lesions [] Neurologic: Denies headache, focal weakness or sensory changes [] Endocrine: Denies polyuria or polydipsia [] All other systems were reviewed and found to be within normal limits, except as documented in this note. Current Medications Current Medications Current Medications Medications (Trade) Dose Ordered Sig/Susan Start Time Stop Time Status Last Admin Dose Admin Hydralazine HCl (Apresoline Inj) 20 mg 1X ONCE 03/13/19 15:00 03/13/19 15:01 DC 03/13/19 14:52 20 MG Allergies Allergies Allergies Coded Allergies Type Severity Reaction Last Updated Verified ibuprofen Adverse Reaction Intermediate Nausea and Vomiting 12/02/17 Yes Physical Exam Physical Exam Constitutional: Well nourished, mild distress, non-toxic appearance. [] HENT: Normocephalic, atraumatic. Eyes: PERRLA, EOMI, conjunctiva normal, no discharge. [] Neck: Normal range of motion, no tenderness, supple, no stridor. [] Cardiovascular:Heart rate regular rhythm, no murmur [] Lungs & Thorax: Bilateral breath sounds clear to auscultation, right-sided reproducible chest wall pain Abdomen: Bowel sounds normal, soft, no tenderness, no masses, no pulsatile masses. [] Skin: Warm, dry, no erythema, no rash. [] Back: No tenderness, no CVA tenderness. [] Extremities: No tenderness, no cyanosis, no clubbing, ROM intact, no edema. [] Neurologic: Alert and oriented X 3, no focal deficits noted. [] Psychologic: Affect anxious, judgement normal, mood normal. [] Current Patient Data Vital Signs Vital Signs Date Time Temp Pulse Resp B/P (MAP) Pulse Ox O2 Delivery O2 Flow Rate FiO2 03/13/19 14:52 75 224/87 03/13/19 14:45 18 99 Nasal Cannula 2.0 03/13/19 13:50 98.9 98.9 Lab Values Laboratory Tests Test 03/13/19 14:05 White Blood Count 8.4 x10^3/uL (4.0-11.0) Red Blood Count 4.23 x10^6/uL (3.50-5.40) Hemoglobin 10.5 g/dL (12.0-15.5) L Hematocrit 33.8 % (36.0-47.0) L Mean Corpuscular Volume 80 fL (79-100) Mean Corpuscular Hemoglobin 25 pg (25-35) Mean Corpuscular Hemoglobin Concent 31 g/dL (31-37) Red Cell Distribution Width 18.1 % (11.5-14.5) H Platelet Count 330 x10^3/uL (140-400) Neutrophils (%) (Auto) 81 % (31-73) H Lymphocytes (%) (Auto) 10 % (24-48) L Monocytes (%) (Auto) 8 % (0-9) Eosinophils (%) (Auto) 0 % (0-3) Basophils (%) (Auto) 1 % (0-3) Neutrophils # (Auto) 6.8 x10^3/uL (1.8-7.7) Lymphocytes # (Auto) 0.9 x10^3/uL (1.0-4.8) L Monocytes # (Auto) 0.7 x10^3/uL (0.0-1.1) Eosinophils # (Auto) 0.0 x10^3/uL (0.0-0.7) Basophils # (Auto) 0.1 x10^3/uL (0.0-0.2) Sodium Level 140 mmol/L (136-145) Potassium Level 4.0 mmol/L (3.5-5.1) Chloride Level 100 mmol/L (98-107) Carbon Dioxide Level 39 mmol/L (21-32) H Anion Gap 1 (6-14) L Blood Urea Nitrogen 7 mg/dL (7-20) Creatinine 0.8 mg/dL (0.6-1.0) Estimated GFR (Cockcroft-Gault) 87.1 BUN/Creatinine Ratio 9 (6-20) Glucose Level 145 mg/dL (70-99) H Calcium Level 10.2 mg/dL (8.5-10.1) H Total Bilirubin 0.5 mg/dL (0.2-1.0) Aspartate Amino Transferase (AST) 18 U/L (15-37) Alanine Aminotransferase (ALT) 13 U/L (14-59) L Alkaline Phosphatase 94 U/L (46-116) Creatine Kinase 49 U/L (26-192) Troponin I Quantitative < 0.017 ng/mL (0.000-0.055) TG-Cam-D-Type Natriuretic Peptide 3081 pg/mL (0-124) H Total Protein 8.4 g/dL (6.4-8.2) H Albumin 3.4 g/dL (3.4-5.0) Albumin/Globulin Ratio 0.7 (1.0-1.7) L Laboratory Tests 03/13/19 14:05 Laboratory Tests 03/13/19 14:05 EKG EKG EKG interpreted by me. EKG at 1447 showed sinus rhythm at rate of 91, PVCs, right bundle branch block, no acute changes compared to previous EKG dated 02/14/2019. Radiology/Procedures Radiology/Procedures [][facility] [address] [place] [address] IMAGING REPORT Signed PATIENT: CHAD,GRETCHEN EACCOUNT: [id number] : 1955 LOCATION: ER AGE: 64 SEX: F EXAM STATUS: REG ER ORD. PHYSICIAN: JO-ANN BLOUNT MD REASON: shortness of breath PROCEDURE: PORTABLE CHEST 1V PORTABLE CHEST 1V History: Shortness of breath Comparison: March 10, 2019 Findings: No consolidation or pleural effusion. Cardiomegaly, unchanged. No pneumothorax. Unchanged left-sided pacemaker. Prior median sternotomy. Impression: 1. No acute cardiopulmonary process. Electronically signed by: Jaydon Machado DO (03/13/2019 3:24 PM) [facility] DICTATED and SIGNED BY: JAYDON MACHADO DO DATE: 03/13/19 1524 Course & Med Decision Making Course & Med Decision Making Pertinent Labs and Imaging studies reviewed. (See chart for details) Evaluation of patient in ER showed 64-year-old female patient with multiple medical problem and frequent emergency room visits and hospitalization presented With complaining of shortness of breath after not feeling intermediate oxygen and also complaining of right-sided chest pain for several days with negative evaluation with her recent hospitalization. Patient had blood pressure of more than 200 and treated with hydralazine IV with improvement of blood pressure to 170s over 90s. Patient asking for pain medication frequency and treated with [place] with improvement of her pain. Patient had increase of BNP compared to previous labs without abnormal chest x-ray.Patient requiring admission for further evaluation and treatment. Discussed with Dr. Keen who is in agreement with admission. Discussed findings and plan with patient and family, who acknowledge understanding and agreement. Dragon Disclaimer Dragon Disclaimer This electronic medical record was generated, in whole or in part, using a voice recognition dictation system. Departure Departure Impression: Primary Impression: Dyspnea Additional Impressions: Non-cardiac chest pain CHF exacerbation Hypertensive urgency Noncompliance Chronic anemia Hypercalcemia Disposition: ADMITTED INPATIENT (At 1615) Admitting Physician: MAGNUS ( Accepted Admission at 1614) Condition: IMPROVED Referrals: JENSEN CUEVAS (PCP) Problem Qualifiers Primary Impression: Dyspnea Dyspnea type: unspecified Qualified Codes: R06.00 - Dyspnea, unspecified Additional Impressions: CHF exacerbation Heart failure type: unspecified Qualified Codes: I50.9 - Heart failure, unspecified JO-ANN BLOUNT MD Mar 13, 2019 16:09
[2019-03-13 16:26] VITALS: BP 185/76
[2019-03-13] MEDS ORDERED: CAPSAICIN 0.025% TOPICAL CREAM 60GM TUBE. TP PRN (17:00)
[2019-03-13] MEDS ORDERED: ONDANSETRON ODT 4 MG TAB.RAPDIS. PO PRN (17:00)
[2019-03-13] MEDS ORDERED: NITROGLYCERIN SUBLINGUAL 0.4 MG BOTTLE OF 25. SL PRN (17:00)
[2019-03-13] MEDS: oxyCODONE/APAP 10/325 1 TAB TABLET PO PRN ×2 (19:07→23:08)
[2019-03-13 19:40] VITALS: BP 167/77
--- NOTE | 2019-03-13 19:47 | HP ---
ADMIT DATE: 03/13/2019 CHIEF COMPLAINT: Chest pain. HISTORY OF PRESENT ILLNESS: The patient is a pleasant middle-aged female, well known to my service. I have been admitting her for several years. She has chronic chest pain, chronic pain. She has had bypass surgery and multiple medical issues. Today, she presented to the ER with 10/10 chest pain, it is on the right, radiating over to the left. She also had accelerated hypertension with pressures in the 200s. We now got to the cardiac floor and she is having low-grade fevers. I started her on some Rocephin. She describes her symptoms as irritating. She tried increasing her home meds, but that did not work. PAST MEDICAL HISTORY: Neuropathy, sciatica, diabetes, hypertension, hyperlipidemia, bypass surgery, depression. ALLERGIES: IBUPROFEN. SOCIAL HISTORY: She does not drink, smoke or take drugs. She lives at home with her granddaughter. She is retired. MEDICATIONS: Reviewed, please refer to the MRAD. REVIEW OF SYSTEMS: GENERAL: No history of weight change, weakness or fevers. SKIN: No bruising, hair changes or rashes. EYES: No blurred, double or loss of vision. NOSE AND THROAT: No history of nosebleeds, hoarseness or sore throat. HEART: She complains of chest pain. LUNGS: Denies cough, hemoptysis, wheezing or shortness of breath. GASTROINTESTINAL: Denies changes in appetite, nausea, vomiting, diarrhea or constipation. GENITOURINARY: No history of frequency, urgency, hesitancy or nocturia. NEUROLOGIC: Denies history of numbness, tingling, tremor or weakness. PSYCHIATRIC: No history of panic, anxiety or depression. ENDOCRINE: No history of heat or cold intolerance, polyuria or polydipsia. EXTREMITIES: Denies muscle weakness, joint pain, pain on walking or stiffness. PHYSICAL EXAMINATION: VITALS: Within normal limits and are stable. GENERAL: No apparent distress. Alert and oriented. HEENT: Normal cephalic atraumatic, external auditory canals are patent EYES: Extraocular muscles are intact, pupils are equally round and reactive to light and accommodation MUSCULOSKELETAL: Well developed, well nourished, good range of motion ENDOCRINE: No thyromegaly was palpated LYMPHATICS: No cervical chain or axillary nodes were noted HEMATOPOIETIC: No bruising NECK: Supple, no JVD, no thyromegaly was noted. LUNGS: Clear to auscultation in all lung tripp without rhonchi or wheezing. HEART: RRR, S1, S2 present. Peripheral pulses intact, no obvious murmurs were noted. ABDOMEN: Soft, nontender. Positive bowel sounds no organomegaly, normal bowel sounds. EXTREMITIES: Without any cyanosis, clubbing, or edema. Pedal pulses intact, Homans sign is negative. NEUROLOGIC: Normal speech, normal tone. A & O x3, moves all extremities, no obvious focal deficits. PSYCHIATRIC: Normal affect, normal mood. Stable. SKIN: No ulcerations or rashes, good skin turgor, no jaundice. VASCULAR: Good capillary refill, neurovascular bundle appears to be intact. LABORATORY DATA: Pending. ASSESSMENT AND PLAN: 1. Chest pain in a middle-aged female who has known coronary artery disease with incidental finding of accelerated hypertension and now she has fevers. Regarding the blood pressure, I have resumed her home meds. I ordered p.r.n. clonidine 0.2 q.4 hours p.r.n. We will consult Cardiology, serial enzymes, serial EKGs, cardiac monitoring, O2 per nasal cannula. Regarding the fever, I started Rocephin 1 gram IV q.24. 2. Deep vein thrombosis prophylaxis. 3. Full code. PROGNOSIS: Guarded. PERICO BUCHANAN DO DR: AHMET/amrik JOB#: [id number] / [id number]
[2019-03-13] MEDS: ZOLPIDEM 5 MG TABLET. PO SCH (20:37)
[2019-03-13] MEDS: ATORVASTATIN CALCIUM 20 MG TABLET PO SCH (20:37)
[2019-03-13] MEDS: cefTRIAXone IV Push 1 GM VIAL. IVP SCH (20:37)
[2019-03-13] MEDS: clonazePAM 0.5 MG TABLET PO SCH (20:37)
[2019-03-13] MEDS: METOPROLOL TART IMMED RELEASE 25 MG TABLET. PO SCH (20:38)
[2019-03-13] MEDS: DOCUSATE SODIUM 100 MG CAPSULE. PO SCH (20:39)
[2019-03-13] MEDS: INSULIN GLARGINE SYRINGE. SQ SCH (20:52)
[2019-03-13 22:17] VITALS: BP 145/65
[2019-03-14] MEDS: oxyCODONE/APAP 10/325 1 TAB TABLET PO PRN ×5 (03:02→20:59)
[2019-03-14 03:10] VITALS: BP 134/60
[2019-03-14 07:32] VITALS: BP 149/63
[2019-03-14] MEDS: clonazePAM 0.5 MG TABLET PO SCH ×3 (07:35→20:58)
[2019-03-14] MEDS: CLOPIDOGREL BISULFATE 75 MG TABLET PO SCH (07:35)
[2019-03-14] MEDS: PANTOPRAZOLE 40 MG TABLET.DR. PO SCH (07:35)
[2019-03-14] MEDS: GLIMEPIRIDE 2 MG TABLET. PO SCH (07:35)
[2019-03-14] MEDS: FERROUS SULFATE 325 MG TABLET. PO SCH (07:35)
[2019-03-14] MEDS: DOCUSATE SODIUM 100 MG CAPSULE. PO SCH ×2 (07:36→20:58)
[2019-03-14] MEDS: METOPROLOL TART IMMED RELEASE 25 MG TABLET. PO SCH ×2 (07:36→21:00)
[2019-03-14] MEDS: FLUoxetine HCL 20 MG CAPSULE PO SCH (08:39)
[2019-03-14] MEDS: CALCIUM CARB/VIT D3 500/200 TABLET. PO SCH (08:39)
[2019-03-14] MEDS: LOSARTAN POTASSIUM 50 MG TABLET. PO SCH (08:39)
[2019-03-14] MEDS: amLODIPine BESYLATE 5 MG TABLET PO SCH (08:39)
[2019-03-14] MEDS: ASPIRIN ENTERIC COATED 81 MG TABLET.DR. PO SCH (08:39)
[2019-03-14] MEDS: FUROSEMIDE 80 MG TABLET. PO SCH ×2 (08:41→15:46)
[2019-03-14] MEDS: LACTOBACILLUS RHAMNOSUS GG 1 CAPSULE. PO SCH ×2 (11:27→20:58)
[2019-03-14 11:30] VITALS: BP 126/61
--- NOTE | 2019-03-14 14:01 | PDOC ---
[employer] PROGRESS NOTE Chief Complaint Chief Complaint Fevers Chest pain with known previous bypass surgery Depression Accelerated Hypertension Weakness Multiple comorbidities Diabetes Hypertension Hyperlipidemia Neuropathy Sciatica History of Present Illness History of Present Illness Patient seen and examined on the telemetry floor She still having low-grade fevers and is very weak Chart reviewed Discussed with RN Vitals/I&O Vitals/I&O: Vital Signs Date Time Temp Pulse Resp B/P (MAP) Pulse Ox O2 Delivery O2 Flow Rate FiO2 03/14/19 12:30 98 Nasal Cannula 3.0 03/14/19 11:30 98.4 60 16 126/61 (82) 98.4 I & O 03/13/19 03/13/19 03/14/19 15:00 23:00 07:00 Intake Total 240 ml 420 ml Output Total 225 ml Balance 240 ml 195 ml Physical Exam General: Alert, Oriented X3, Cooperative Heart: Regular rate, Normal S1 Lungs: Clear, Other Abdomen: Normal bowel sounds, Soft Extremities: No clubbing, No cyanosis Skin: No rashes, No breakdown Labs Labs: Laboratory Tests Test 03/13/19 14:05 03/13/19 17:19 03/13/19 18:40 03/13/19 20:31 White Blood Count 8.4 x10^3/uL (4.0-11.0) Red Blood Count 4.23 x10^6/uL (3.50-5.40) Hemoglobin 10.5 g/dL (12.0-15.5) Hematocrit 33.8 % (36.0-47.0) Mean Corpuscular Volume 80 fL (79-100) Mean Corpuscular Hemoglobin 25 pg (25-35) Mean Corpuscular Hemoglobin Concent 31 g/dL (31-37) Red Cell Distribution Width 18.1 % (11.5-14.5) Platelet Count 330 x10^3/uL (140-400) Neutrophils (%) (Auto) 81 % (31-73) Lymphocytes (%) (Auto) 10 % (24-48) Monocytes (%) (Auto) 8 % (0-9) Eosinophils (%) (Auto) 0 % (0-3) Basophils (%) (Auto) 1 % (0-3) Neutrophils # (Auto) 6.8 x10^3/uL (1.8-7.7) Lymphocytes # (Auto) 0.9 x10^3/uL (1.0-4.8) Monocytes # (Auto) 0.7 x10^3/uL (0.0-1.1) Eosinophils # (Auto) 0.0 x10^3/uL (0.0-0.7) Basophils # (Auto) 0.1 x10^3/uL (0.0-0.2) Sodium Level 140 mmol/L (136-145) Potassium Level 4.0 mmol/L (3.5-5.1) Chloride Level 100 mmol/L (98-107) Carbon Dioxide Level 39 mmol/L (21-32) Anion Gap 1 (6-14) Blood Urea Nitrogen 7 mg/dL (7-20) Creatinine 0.8 mg/dL (0.6-1.0) Estimated GFR (Cockcroft-Gault) 87.1 BUN/Creatinine Ratio 9 (6-20) Glucose Level 145 mg/dL (70-99) Calcium Level 10.2 mg/dL (8.5-10.1) Total Bilirubin 0.5 mg/dL (0.2-1.0) Aspartate Amino Transf (AST/SGOT) 18 U/L (15-37) Alanine Aminotransferase (ALT/SGPT) 13 U/L (14-59) Alkaline Phosphatase 94 U/L (46-116) Creatine Kinase 49 U/L (26-192) Troponin I Quantitative < 0.017 ng/mL (0.000-0.055) < 0.017 ng/mL (0.000-0.055) LR-Cpd-T-Type Natriuretic Peptide 3081 pg/mL (0-124) Total Protein 8.4 g/dL (6.4-8.2) Albumin 3.4 g/dL (3.4-5.0) Albumin/Globulin Ratio 0.7 (1.0-1.7) Glucose (Fingerstick) 147 mg/dL (70-99) 135 mg/dL (70-99) Test 03/13/19 23:00 03/14/19 08:05 03/14/19 11:44 Troponin I Quantitative < 0.017 ng/mL (0.000-0.055) Glucose (Fingerstick) 100 mg/dL (70-99) 200 mg/dL (70-99) Review of Systems Review of Systems: Complains of weakness and depression Assessment and Plan Assessmemt and Plan Problems Medical Problems: (1) Chronic anemia Status: Acute (2) Dyspnea Status: Acute (3) Hypercalcemia Status: Acute (4) Hypertensive urgency Status: Acute (5) Noncompliance Status: Acute Fevers Chest pain with known previous bypass surgery Depression Accelerated Hypertension Weakness Multiple comorbidities Diabetes Hypertension Hyperlipidemia Neuropathy Sciatica Plan I have her on IV Rocephin Cardiac monitoring I have consulted cardiology Serial enzymes serially EKGs Home meds DVT prophylaxis Full code Long-term prognosis guarded Comment Review of Relevant I have reviewed the following items onlan (where applicable) has been applied. Medications: Current Medications Medications (Trade) Dose Ordered Sig/Susan Route PRN Reason Start Time Stop Time Status Last Admin Dose Admin Hydralazine HCl (Apresoline Inj) 20 mg 1X ONCE IVP 03/13/19 15:00 03/13/19 15:01 DC 03/13/19 14:52 Acetaminophen/ Hydrocodone Bitart (Lortab 5/325) 1 tab 1X ONCE PO 03/13/19 15:45 03/13/19 15:46 DC 03/13/19 15:43 Amlodipine Besylate (Norvasc) 5 mg DAILY PO 03/14/19 09:00 03/14/19 08:39 Aspirin (Ecotrin) 81 mg DAILY PO 03/14/19 09:00 03/14/19 08:39 Atorvastatin Calcium (Lipitor) 20 mg HS PO 03/13/19 21:00 03/13/19 20:37 Calcium/Vitamin D (Oscal D 500mg/ 200uts) 1 tab DAILY PO 03/14/19 09:00 03/14/19 08:39 Clonazepam (KlonoPIN) 0.5 mg TID PO 03/13/19 21:00 03/14/19 07:35 Clopidogrel Bisulfate (Plavix) 75 mg DAILYWBKFT PO 03/14/19 08:00 03/14/19 07:35 Docusate Sodium (Colace) 100 mg BID PO 03/13/19 21:00 03/14/19 07:36 Ferrous Sulfate (Feosol) 325 mg DAILYWBKFT PO 03/14/19 08:00 03/14/19 07:35 Fluoxetine HCl (PROzac) 20 mg DAILY PO 03/14/19 09:00 03/14/19 08:39 Furosemide (Lasix) 80 mg BID94 PO 03/14/19 09:00 03/14/19 08:41 Glimepiride (Amaryl) 2 mg DAILYWBKFT PO 03/14/19 08:00 03/14/19 07:35 Metoprolol Tartrate (Lopressor) 25 mg BID PO 03/13/19 21:00 03/14/19 07:36 Oxycodone/ Acetaminophen (Percocet 10/325) 2 tab PRN Q4HRS PRN PO SEVERE PAIN 03/13/19 17:00 03/14/19 11:28 Pantoprazole Sodium (Protonix) 40 mg DAILYAC PO 03/14/19 07:30 03/14/19 07:35 Zolpidem Tartrate (Ambien) 5 mg QHS PO 03/13/19 21:00 03/13/19 20:37 Insulin Glargine (Lantus Syringe) 8 unit QHS SQ 03/13/19 21:00 03/13/19 20:52 Losartan Potassium (Cozaar) 100 mg DAILY PO 03/14/19 09:00 03/14/19 08:39 Ceftriaxone Sodium (Rocephin) 1 gm Q24H IVP 03/13/19 20:00 03/13/19 20:37 Lactobacillus Rhamnosus (Culturelle) 1 cap BID PO 03/14/19 09:00 03/14/19 11:27 PERICO BUCHANAN III DO Mar 14, 2019 14:01
[2019-03-14 15:25] VITALS: BP 138/65
[2019-03-14 19:09] VITALS: BP 130/60
[2019-03-14] MEDS: ATORVASTATIN CALCIUM 20 MG TABLET PO SCH (20:59)
[2019-03-14] MEDS: ZOLPIDEM 5 MG TABLET. PO SCH (20:59)
[2019-03-14] MEDS: cefTRIAXone IV Push 1 GM VIAL. IVP SCH (21:01)
[2019-03-14] MEDS: INSULIN GLARGINE SYRINGE. SQ SCH (21:03)
[2019-03-14 23:38] VITALS: BP 126/60
[2019-03-15 02:57] VITALS: BP 133/62
[2019-03-15] MEDS: oxyCODONE/APAP 10/325 1 TAB TABLET PO PRN ×5 (03:04→21:07)
--- NOTE | 2019-03-15 06:36 | EKG ---
[facility] [address] [place] [address] Test Date: 2019-03-13 Test Time: 14:47:58 Pat Name: GRETCHEN BONILLA Department: Room: Gender: F Data Transcriber: [id number] : 1955 Requested By: JO-ANN BLOUNT Order Number: [id number] Reading MD: Measurements Intervals [place] Rate: 91 P: -45 VA: 112 QRS: -164 QRSD: 136 T: 56 QT: 406 QTc: 501 Interpretive Statements SINUS RHYTHM INTERPOLATED ATRIAL PREMATURE COMPLEX(ES) ABNORMAL RIGHT SUPERIOR AXIS DEVIATION RIGHT BUNDLE BRANCH BLOCK RVH WITH REPOLARIZATION ABNORMALITY QRS(T) CONTOUR ABNORMALITY CONSISTENT WITH ANTERIOR INFARCT AGE UNDETERMINED CONSISTENT WITH INFEROLATERAL INFARCT POSSIBLY RECENT ABNORMAL ECG RI6.01 No previous ECG available for comparison
[2019-03-15 07:00] VITALS: BP 156/67
[2019-03-15] MEDS: ASPIRIN ENTERIC COATED 81 MG TABLET.DR. PO SCH (08:34)
[2019-03-15] MEDS: LACTOBACILLUS RHAMNOSUS GG 1 CAPSULE. PO SCH ×2 (08:34→21:01)
[2019-03-15] MEDS: DOCUSATE SODIUM 100 MG CAPSULE. PO SCH ×2 (08:34→21:02)
[2019-03-15] MEDS: FLUoxetine HCL 20 MG CAPSULE PO SCH (08:34)
[2019-03-15] MEDS: PANTOPRAZOLE 40 MG TABLET.DR. PO SCH (08:34)
[2019-03-15] MEDS: CLOPIDOGREL BISULFATE 75 MG TABLET PO SCH (08:34)
[2019-03-15] MEDS: FUROSEMIDE 80 MG TABLET. PO SCH ×2 (08:35→17:24)
[2019-03-15] MEDS: METOPROLOL TART IMMED RELEASE 25 MG TABLET. PO SCH ×2 (08:35→21:05)
[2019-03-15] MEDS: GLIMEPIRIDE 2 MG TABLET. PO SCH (08:35)
[2019-03-15] MEDS: LOSARTAN POTASSIUM 50 MG TABLET. PO SCH (08:35)
[2019-03-15] MEDS: amLODIPine BESYLATE 5 MG TABLET PO SCH (08:35)
[2019-03-15] MEDS: CALCIUM CARB/VIT D3 500/200 TABLET. PO SCH (08:36)
[2019-03-15] MEDS: clonazePAM 0.5 MG TABLET PO SCH ×3 (08:36→21:02)
[2019-03-15] MEDS: FERROUS SULFATE 325 MG TABLET. PO SCH (08:36)
[2019-03-15 10:39] VITALS: BP 132/57
--- NOTE | 2019-03-15 10:45 | PDOC2 ---
CARDIAC CONSULT DATE OF CONSULT Date of Consult DATE: 03/15/19 TIME: 10:38 REASON FOR CONSULT Reason for Consult: Chest pain Hypertension REFERRING PHYSICIAN Referring Physician: Dr. Keen SOURCE Source: Chart review, Patient HISTORY OF PRESENT ILLNESS HISTORY OF PRESENT ILLNESS This is a 64 yo female, who has had multiple recent re-admission for complaints of chest pain. Has been seen by our service multiple times and cardiac workup has been unrevealing. PAST MEDICAL HISTORY Past Medical History Cardiovascular: CAD, CHF, HTN, RI, Hyperlipidemia, Other Pulmonary: Bronchitis, COPD CENTRAL NERVOUS SYSTEM: Periperal neuropathy GI: GERD Heme/Onc: No pertinent hx Hepatobiliary: Cholelithiasis Psych: No pertinent hx Musculoskeletal: Osteoarthritis, Weakness Rheumatologic: No pertinent hx Infectious disease: No pertinent hx Renal/: Chronic renal insuff Endocrine: Diabetes PAST SURGICAL HISTORY Past Surgical History Pacemaker, Appendectomy, Cholecystectomy, Total knee replacement, Hysterectomy FAMILY HISTORY Family History: Heart Disease SOCIAL HISTORY Social History Social History:<1 pack per day ALCOHOL: none Drugs: None, Marijuana Lives: with Family ALLERGIES ALLERGIES: Coded Allergies: No Known Drug Allergies (Unverified , 03/13/19) ROS Review of System 14 point ROS conducted with pertinent positives noted above in hPI PHYSICAL EXAM PHYSICAL EXAM General: Alert, Oriented X3, Cooperative, No acute distress HEENT: Atraumatic, Mucous membr. moist/pink Lungs: Clear to auscultation, Normal air movement. Right chest tenderness upon palpitation. Heart: Regular rate (SR), Normal S1, Normal S2, No murmurs Abdomen: Soft, No tenderness Extremities: No cyanosis, No edema Skin: No breakdown, No significant lesion Neuro: Normal speech, Sensation intact Psych/Mental Status: Mental status NL, Mood NL MUSCULOSKELETAL: Osteoarthritic changes both hands VITALS/I&O VITALS/I&O: Vital Signs Date Time Temp Pulse Resp B/P (MAP) Pulse Ox O2 Delivery O2 Flow Rate FiO2 03/15/19 08:35 65 03/15/19 07:00 97.4 18 156/67 (96) 96 Nasal Cannula 2.0 97.4 I & O 03/14/19 03/14/19 03/15/19 15:00 23:00 07:00 Intake Total 600 ml 220 ml Output Total 500 ml 400 ml Balance 600 ml -500 ml -180 ml LABS Lab: Laboratory Tests Test 03/14/19 11:44 03/14/19 17:20 03/14/19 20:49 03/15/19 07:54 Glucose (Fingerstick) 200 mg/dL (70-99) H 112 mg/dL (70-99) H 143 mg/dL (70-99) H 136 mg/dL (70-99) H ECHOCARDIOGRAM ECHOCARDIOGRAM <Conclusion> Technically very difficult study. Endocardial definition not good despite using Optison echo contrast. Left ventricle systolic function appears normal. The Ejection Fraction is 50-55%. Trace mitral regurgitation. Trace tricuspid regurgitation. The PA pressure was estimated at 36 mmHg. There is no evidence of significant pericardial effusion. DATE: 11/06/18 1444 STRESS TEST STRESS TEST Conclusion 1. Myocardial viability study was obtained after injection of 3 mCi of thallium 101. 2. Images were obtained. After waiting for 4 hours an additional 1 mCi of thallium was injected and further images were obtained. 3. 24-hour images were obtained the next day. 4. Non viability is seen over the apex.The rRest of the myocardium is viable. DATE: 01/12/17 1206 HEART CATH HEART CATH Conclusion 1. 40% stenosis involving the obtuse marginal branch of left circumflex artery without any other significant stenoses. The left internal mammary artery graft to the left anterior descending artery and the saphenous vein graft to the obtuse marginal branch were patent. Of note, patient seems to have had CABG for thrombus in left main coronary artery and left anterior descending artery in the past. No lesions were noted because the thrombus resolved. 2. Akinetic distal anterior wall and the entire apical wall with ejection fraction estimated at 40%. Recommendations Medical Therapy DATE: 05/18/18 1225 ASSESSMENT/PLAN ASSESSMENT/PLAN 1. Chest pain, noncardiac. AMI ruled out. 2. CAD s/p CABG. Recent cardiac catheterization noted above without any lesions needing intervention. Recent echo with preserved LV systolic function 3. Hypertension; controlled 4. Chronic diastolic CHF; clinically compensated 5. SSS/PPM in situ 6. Hyperlipidemia; statin therapy 7. Diabetes, II; as per PCP Recommendations Continue with secondary prevention measures including DAPT No further cardiac workup warranted at this time May discharge from a CV standpoint and f/u in our office with Dr. Aggarwal as scheduled GABRIELLA VÁSQUEZ APRN Mar 15, 2019 10:45
--- NOTE | 2019-03-15 10:48 | PDOC ---
PROGRESS NOTES Chief Complaint Chief Complaint Fevers Depression Accelerated Hypertension Weakness Multiple comorbidities Neuropathy Sciatica Right breast pain Intractable abdominal pain with nausea and vomiting. IV anti-emetics. 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 I have counseled endlessly on this Chest pain - likely demand from acute CHF vs referred GI pain. Will maintain telemetry and trend troponins given her high risk and frequent hospitalizations Accelerated Hypertension - not currently controlled SSS s/p PPM - Stable Hyperlipidemia - Continue statin therapy Chronic stable angina Acute heart failure - systolic - Lasix x1 in ED, will place on IV lasix, daily BMP and Mag levels Akinetic distal anterior wall and the entire apical wall with ejection fraction estimated at 40%.per cath 05/12 Morbid obesity Diabetes type 2 - will repeat A1c. Sliding scale GERD - cont PPI CAD WITH HX STENTS - recent cardiac catheterization 04/2018 showed patent GARCIA to LAD and patent SVG to OM. . No further cardiac workup is indicated Acute hypoxia - likely cor pulmonale History of Present Illness History of Present Illness Ms Laguna is a 64yo F w/ PMHx HTN, SSS, HLD, obesity, chronic pain syndrome, chronic systolic CHF, cor pulmonale with hypoxia on 3L NCO2 who presented with acute chest pain with nausea. On further ROS she notes substernal and right sided chest pain. She also c/o a headache and wheezing. Patient states that she took a breathing treatment last night and it did help some. UDS positive for cannabinoids. CXR with increased pulmonary vascular congestion and LE edema worse. BNP was 2657. She has been admitted frequently for chest pain with [facility] 04/2018: 1. 40% stenosis involving the obtuse marginal branch of left circumflex artery without any other significant stenoses. The left internal mammary artery graft to the left anterior descending artery and the saphenous vein graft to the obtuse marginal branch were patent. Of note, patient seems to have had CABG for thrombus in left main coronary artery and left anterior descending artery in the past. No lesions were noted because the thrombus resolved. 2. Akinetic distal anterior wall and the entire apical wall with ejection fraction estimated at 40%. EKG - sinus with no STEMI. No chest pain. She c/o RLQ abdominal pain and nausea, no further vomiting. She has missed GI f/u outpatient and has some difficulty with compliance. Admitted for further treatment. Moving better, asking for pain medication every 4 hours. I have discussed considering lowering her large doses of opioids, that they may be contributing to her GI symptoms and overall hospital readmissions. Her CP and SOB have improved somewhat, now still with right breast pain. Seen by cardiology. Patient seen and examined on the telemetry floor She still having low-grade fevers and is very weak Chart reviewed Discussed with RN Vitals Vitals Vital Signs Date Time Temp Pulse Resp B/P (MAP) Pulse Ox O2 Delivery O2 Flow Rate FiO2 03/15/19 10:39 97.8 60 18 132/57 (82) 98 Nasal Cannula 2.0 97.8 Physical Exam General: Alert, Oriented X3, Cooperative Heart: Regular rate, Normal S1 Lungs: Clear, Other Abdomen: Normal bowel sounds, Soft Extremities: No clubbing, No cyanosis Skin: No rashes, No breakdown Labs LABS Laboratory Tests Test 03/14/19 11:44 03/14/19 17:20 03/14/19 20:49 03/15/19 07:54 Glucose (Fingerstick) 200 mg/dL (70-99) 112 mg/dL (70-99) 143 mg/dL (70-99) 136 mg/dL (70-99) Assessment and Plan Assessmemt and Plan Problems Medical Problems: (1) Chronic anemia Status: Acute (2) Dyspnea Status: Acute (3) Hypercalcemia Status: Acute (4) Hypertensive urgency Status: Acute (5) Noncompliance Status: Acute Comment Review of Relevant I have reviewed the following items nolan (where applicable) has been applied. Labs Laboratory Tests Test 03/13/19 14:05 03/13/19 17:19 03/13/19 18:40 03/13/19 20:31 White Blood Count 8.4 x10^3/uL (4.0-11.0) Red Blood Count 4.23 x10^6/uL (3.50-5.40) Hemoglobin 10.5 g/dL (12.0-15.5) Hematocrit 33.8 % (36.0-47.0) Mean Corpuscular Volume 80 fL (79-100) Mean Corpuscular Hemoglobin 25 pg (25-35) Mean Corpuscular Hemoglobin Concent 31 g/dL (31-37) Red Cell Distribution Width 18.1 % (11.5-14.5) Platelet Count 330 x10^3/uL (140-400) Neutrophils (%) (Auto) 81 % (31-73) Lymphocytes (%) (Auto) 10 % (24-48) Monocytes (%) (Auto) 8 % (0-9) Eosinophils (%) (Auto) 0 % (0-3) Basophils (%) (Auto) 1 % (0-3) Neutrophils # (Auto) 6.8 x10^3/uL (1.8-7.7) Lymphocytes # (Auto) 0.9 x10^3/uL (1.0-4.8) Monocytes # (Auto) 0.7 x10^3/uL (0.0-1.1) Eosinophils # (Auto) 0.0 x10^3/uL (0.0-0.7) Basophils # (Auto) 0.1 x10^3/uL (0.0-0.2) Sodium Level 140 mmol/L (136-145) Potassium Level 4.0 mmol/L (3.5-5.1) Chloride Level 100 mmol/L (98-107) Carbon Dioxide Level 39 mmol/L (21-32) Anion Gap 1 (6-14) Blood Urea Nitrogen 7 mg/dL (7-20) Creatinine 0.8 mg/dL (0.6-1.0) Estimated GFR (Cockcroft-Gault) 87.1 BUN/Creatinine Ratio 9 (6-20) Glucose Level 145 mg/dL (70-99) Calcium Level 10.2 mg/dL (8.5-10.1) Total Bilirubin 0.5 mg/dL (0.2-1.0) Aspartate Amino Transf (AST/SGOT) 18 U/L (15-37) Alanine Aminotransferase (ALT/SGPT) 13 U/L (14-59) Alkaline Phosphatase 94 U/L (46-116) Creatine Kinase 49 U/L (26-192) Troponin I Quantitative < 0.017 ng/mL (0.000-0.055) < 0.017 ng/mL (0.000-0.055) PO-Uxu-F-Type Natriuretic Peptide 3081 pg/mL (0-124) Total Protein 8.4 g/dL (6.4-8.2) Albumin 3.4 g/dL (3.4-5.0) Albumin/Globulin Ratio 0.7 (1.0-1.7) Glucose (Fingerstick) 147 mg/dL (70-99) 135 mg/dL (70-99) Test 03/13/19 23:00 03/14/19 08:05 03/14/19 11:44 03/14/19 17:20 Troponin I Quantitative < 0.017 ng/mL (0.000-0.055) Glucose (Fingerstick) 100 mg/dL (70-99) 200 mg/dL (70-99) 112 mg/dL (70-99) Test 03/14/19 20:49 03/15/19 07:54 Glucose (Fingerstick) 143 mg/dL (70-99) 136 mg/dL (70-99) Laboratory Tests Test 03/14/19 11:44 03/14/19 17:20 03/14/19 20:49 03/15/19 07:54 Glucose (Fingerstick) 200 mg/dL (70-99) 112 mg/dL (70-99) 143 mg/dL (70-99) 136 mg/dL (70-99) Medications Current Medications Hydralazine HCl (Apresoline Inj) 20 mg 1X ONCE IVP Last administered on 03/13/19at 14:52; Start 03/13/19 at 15:00; Stop 03/13/19 at 15:01; Status DC Acetaminophen/ Hydrocodone Bitart (Lortab 5/325) 1 tab 1X ONCE PO Last administered on 03/13/19at 15:43; Start 03/13/19 at 15:45; Stop 03/13/19 at 15:46; Status DC Amlodipine Besylate (Norvasc) 5 mg DAILY PO Last administered on 03/15/19at 08:35; Start 03/14/19 at 09:00 Aspirin (Ecotrin) 81 mg DAILY PO Last administered on 03/15/19at 08:34; Start 03/14/19 at 09:00 Atorvastatin Calcium (Lipitor) 20 mg HS PO Last administered on 03/14/19at 20:59; Start 03/13/19 at 21:00 Calcium/Vitamin D (Oscal D 500mg/ 200uts) 1 tab DAILY PO Last administered on 03/15/19at 08:36; Start 03/14/19 at 09:00 Capsaicin (Zostrix) 1 tre PRN TID PRN TP PAIN; Start 03/13/19 at 17:00 Clonazepam (KlonoPIN) 0.5 mg TID PO Last administered on 03/15/19 08:36; Start 03/13/19 at 21:00 Clopidogrel Bisulfate (Plavix) 75 mg DAILYWBKFT PO Last administered on 03/15/19 08:34; Start 03/14/19 at 08:00 Docusate Sodium (Colace) 100 mg BID PO Last administered on 03/15/19 08:34; Start 03/13/19 at 21:00 Ferrous Sulfate (Feosol) 325 mg DAILYWBKFT PO Last administered on 03/15/19 08:36; Start 03/14/19 at 08:00 Fluoxetine HCl (PROzac) 20 mg DAILY PO Last administered on 03/15/19 08:34; Start 03/14/19 at 09:00 Furosemide (Lasix) 80 mg [id number] PO Last administered on 03/15/19 08:35; Start 03/14/19 at 09:00 Glimepiride (Amaryl) 2 mg DAILYWBKFT PO Last administered on 03/15/19 08:35; Start 03/14/19 at 08:00 Metoprolol Tartrate (Lopressor) 25 mg BID PO Last administered on 03/15/19 08:35; Start 03/13/19 at 21:00 Nitroglycerin (Nitrostat) 0.4 mg PRN Q5MIN PRN SL CHEST PAIN; Start 03/13/19 at 17:00 Ondansetron HCl (Zofran Odt) 4 mg PRN Q6HRS PRN PO NAUSEA; Start 03/13/19 at 17:00 Oxycodone/ Acetaminophen (Percocet 10/325) 2 tab PRN Q4HRS PRN PO SEVERE PAIN Last administered on 03/15/19 08:34; Start 03/13/19 at 17:00 Pantoprazole Sodium (Protonix) 40 mg DAILYAC PO Last administered on 03/15/19 08:34; Start 03/14/19 at 07:30 Zolpidem Tartrate (Ambien) 5 mg QHS PO Last administered on 03/14/19 20:59; Start 03/13/19 at 21:00 Insulin Glargine (Lantus Syringe) 8 unit QHS SQ Last administered on 03/14/19at 21:03; Start 03/13/19 at 21:00 Losartan Potassium (Cozaar) 100 mg DAILY PO Last administered on 03/15/19at 08:35; Start 03/14/19 at 09:00 Ceftriaxone Sodium (Rocephin) 1 gm Q24H IVP Last administered on 03/14/19at 2 1:01; Start 03/13/19 at 20:00 Lactobacillus Rhamnosus (Culturelle) 1 cap BID PO Last administered on 03/15/19at 08:34; Start 03/14/19 at 09:00 Active Scripts Active Basaglar Kwikpen U-100 (Insulin Glargine,Hum.rec.anlog) 100 Unit/1 Ml Insuln.pen 8 Unit SQ QHS 30 Days Feosol (Ferrous Sulfate) 325 Mg Tablet 325 Mg PO DAILYWBKFT 30 Days Protonix (Pantoprazole Sodium) 40 Mg Tablet.dr 40 Mg PO DAILYAC 60 Days Clopidogrel (Clopidogrel Bisulfate) 75 Mg Tablet 75 Mg PO DAILYWBKFT Ondansetron Odt (Ondansetron) 4 Mg Tab.rapdis 1 Tab PO PRN Q6-8HRS Proair Hfa Inhaler (Albuterol Sulfate) 8.5 Gm Hfa.aer.ad 1 Puff INH PRN Q6HRS PRN Amaryl (Glimepiride) 2 Mg Tablet 2 Mg PO DAILY 30 Days Reported Percocet 10-325 Mg Tablet (Oxycodone/Acetaminophen) 1 Each Tablet 2 Tab PO PRN Q4HRS PRN Losartan Potassium 100 Mg Tablet 100 Mg PO DAILY Amlodipine Besylate 5 Mg Tablet 5 Mg PO DAILY Docusate Sodium 100 Mg Capsule 1 Cap PO BID Metoprolol Tartrate 25 Mg Tablet 25 Mg PO BID Capsaicin 60 Gm Cream..g. 60 Gm TP PRN TID apply to morgan feet Calcium 500 + Vit D 200 Caplet (Calcium Carbonate/Vitamin D3) 1 Each Tablet 1 Each PO DAILY Zolpidem Tartrate 5 Mg Tablet 5 Mg PO QHS Clonazepam (Clonazepam) 0.5 Mg Tablet 0.5 Mg PO TID Fluoxetine Hcl 20 Mg Capsule 1 Cap PO DAILY Furosemide 80 Mg Tablet 80 Mg PO BID NITROGLYCERIN SubLingual (Nitroglycerin) 0.4 Mg Tab.subl 0.4 Mg SL PRN Q5MIN PRN Atorvastatin Calcium 20 Mg Tablet 20 Mg PO HS Aspir 81 (Aspirin) 81 Mg Tablet.dr 1 Tab PO DAILY Vitals/I & O Vital Sign - Last 24 Hours 03/14/19 03/14/19 03/14/19 03/14/19 11:28 11:30 12:30 15:25 Temp 98.4 98.0 98.4 98.0 Pulse 60 61 Resp 16 16 B/P (MAP) 126/61 (82) 138/65 (89) Pulse Ox 100 98 98 99 O2 Delivery Nasal Cannula Nasal Cannula Nasal Cannula Nasal Cannula O2 Flow Rate 2.0 3.0 3.0 3.0 03/14/19 03/14/19 03/14/19 03/14/19 15:46 16:46 19:09 19:30 Temp 98.0 98.0 Pulse 60 Resp 18 16 B/P (MAP) 130/60 (83) Pulse Ox 99 99 96 O2 Delivery Nasal Cannula Nasal Cannula Nasal Cannula Nasal Cannula O2 Flow Rate 3.0 3.0 3.0 2.0 03/14/19 03/14/19 03/14/19 03/14/19 20:59 21:00 21:59 23:38 Temp 97.8 97.8 Pulse 63 62 Resp 16 16 16 B/P (MAP) 156/67 126/60 (82) Pulse Ox 96 96 96 O2 Delivery Nasal Cannula Nasal Cannula Nasal Cannula O2 Flow Rate 2.0 3.0 3.0 03/15/19 03/15/19 03/15/19 03/15/19 02:57 03:04 04:04 07:00 Temp 98.0 97.4 98.0 97.4 Pulse 60 60 Resp 16 18 16 18 B/P (MAP) 133/62 (85) 156/67 (96) Pulse Ox 98 96 96 96 O2 Delivery Nasal Cannula Nasal Cannula Nasal Cannula Nasal Cannula O2 Flow Rate 3.0 3.0 3.0 2.0 03/15/19 03/15/19 03/15/19 03/15/19 08:35 08:35 08:35 10:39 Temp 97.8 97.8 Pulse 65 62 65 60 Resp 18 B/P (MAP) 132/57 (82) Pulse Ox 98 O2 Delivery Nasal Cannula O2 Flow Rate 2.0 Intake and Output 03/14/19 03/14/19 03/15/19 15:00 23:00 07:00 Intake Total 600 ml 220 ml Output Total 500 ml 400 ml Balance 600 ml -500 ml -180 ml VENKAT ALEJANDRO MD Mar 15, 2019 10:48
--- NOTE | 2019-03-15 13:41 | NUR ---
SS following for discharge planning. SS reviewed pt chart. Pt is from home and is currently requiring oxygen. Pt was previously on services with [facility], ; fax [phone]. SS will continue to follow for discharge planning.
[2019-03-15 15:00] VITALS: BP 128/58
[2019-03-15 19:17] VITALS: BP 117/56
[2019-03-15] MEDS: cefTRIAXone IV Push 1 GM VIAL. IVP SCH (21:01)
[2019-03-15] MEDS: ZOLPIDEM 5 MG TABLET. PO SCH (21:02)
[2019-03-15] MEDS: ATORVASTATIN CALCIUM 20 MG TABLET PO SCH (21:02)
[2019-03-15] MEDS: INSULIN GLARGINE SYRINGE. SQ SCH (21:11)
[2019-03-15 23:05] VITALS: BP 120/53
[2019-03-16] MEDS: oxyCODONE/APAP 10/325 1 TAB TABLET PO PRN ×4 (01:15→13:54)
[2019-03-16 02:33] VITALS: BP 126/61
[2019-03-16 07:00] VITALS: BP 145/67
[2019-03-16 07:07] LABS: CALCIUM 8.8 mg/dL (8.5-10.1); CREATININE 0.9 mg/dL (0.6-1.0); MAGNESIUM 2.1 mg/dL (1.8-2.4); POTASSIUM 4.1 mmol/L (3.5-5.1)
[2019-03-16] MEDS: ASPIRIN ENTERIC COATED 81 MG TABLET.DR. PO SCH (08:45)
[2019-03-16] MEDS: CALCIUM CARB/VIT D3 500/200 TABLET. PO SCH (08:45)
[2019-03-16] MEDS: LOSARTAN POTASSIUM 50 MG TABLET. PO SCH (08:45)
[2019-03-16] MEDS: PANTOPRAZOLE 40 MG TABLET.DR. PO SCH (08:45)
[2019-03-16] MEDS: GLIMEPIRIDE 2 MG TABLET. PO SCH (08:45)
[2019-03-16] MEDS: FUROSEMIDE 80 MG TABLET. PO SCH (08:46)
[2019-03-16] MEDS: clonazePAM 0.5 MG TABLET PO SCH ×2 (08:46→14:14)
[2019-03-16] MEDS: FERROUS SULFATE 325 MG TABLET. PO SCH (08:46)
[2019-03-16] MEDS: LACTOBACILLUS RHAMNOSUS GG 1 CAPSULE. PO SCH (08:46)
[2019-03-16] MEDS: CLOPIDOGREL BISULFATE 75 MG TABLET PO SCH (08:46)
[2019-03-16] MEDS: FLUoxetine HCL 20 MG CAPSULE PO SCH (08:46)
[2019-03-16] MEDS: METOPROLOL TART IMMED RELEASE 25 MG TABLET. PO SCH (08:46)
[2019-03-16] MEDS: amLODIPine BESYLATE 5 MG TABLET PO SCH (08:46)
[2019-03-16] MEDS: DOCUSATE SODIUM 100 MG CAPSULE. PO SCH (08:46)
--- NOTE | 2019-03-16 08:53 | PDOC ---
PROGRESS NOTES Chief Complaint Chief Complaint Fevers Depression Accelerated Hypertension Weakness Multiple comorbidities Neuropathy Sciatica Right breast pain Intractable abdominal pain with nausea and vomiting. IV anti-emetics. 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 I have counseled endlessly on this Chest pain - likely demand from acute CHF vs referred GI pain. Will maintain telemetry and trend troponins given her high risk and frequent hospitalizations Accelerated Hypertension - not currently controlled SSS s/p PPM - Stable Hyperlipidemia - Continue statin therapy Chronic stable angina Acute heart failure - systolic - Lasix x1 in ED, will place on IV lasix, daily BMP and Mag levels Akinetic distal anterior wall and the entire apical wall with ejection fraction estimated at 40%.per cath 05/12 Morbid obesity Diabetes type 2 - will repeat A1c. Sliding scale GERD - cont PPI CAD WITH HX STENTS - recent cardiac catheterization 04/2018 showed patent GARCIA to LAD and patent SVG to OM. . No further cardiac workup is indicated Acute hypoxia - likely cor pulmonale History of Present Illness History of Present Illness Ms aLguna is a 64yo F w/ PMHx HTN, SSS, HLD, obesity, chronic pain syndrome, chronic systolic CHF, cor pulmonale with hypoxia on 3L NCO2 who presented with acute chest pain with nausea. On further ROS she notes substernal and right sided chest pain. She also c/o a headache and wheezing. Patient states that she took a breathing treatment last night and it did help some. UDS positive for cannabinoids. CXR with increased pulmonary vascular congestion and LE edema worse. BNP was 2657. She has been admitted frequently for chest pain with [facility] 04/2018: 1. 40% stenosis involving the obtuse marginal branch of left circumflex artery without any other significant stenoses. The left internal mammary artery graft to the left anterior descending artery and the saphenous vein graft to the obtuse marginal branch were patent. Of note, patient seems to have had CABG for thrombus in left main coronary artery and left anterior descending artery in the past. No lesions were noted because the thrombus resolved. 2. Akinetic distal anterior wall and the entire apical wall with ejection fraction estimated at 40%. EKG - sinus with no STEMI. No chest pain. She c/o RLQ abdominal pain and nausea, no further vomiting. She has missed GI f/u outpatient and has some difficulty with compliance. Admitted for further treatment. Moving better, asking for pain medication every 4 hours. I have discussed considering lowering her large doses of opioids, that they may be contributing to her GI symptoms and overall hospital readmissions. Her CP and SOB have improved somewhat, now still with right breast pain. Seen by cardiology. Work of breathing improved with antibiotics and steroids Patient seen and examined on the telemetry floor She still having low-grade fevers and is very weak. Plan for home with home health today to have [place] with family. Chart reviewed Discussed with RN Vitals Vitals Vital Signs Date Time Temp Pulse Resp B/P (MAP) Pulse Ox O2 Delivery O2 Flow Rate FiO2 03/16/19 08:46 60 145/67 03/16/19 07:00 98.6 18 97 Nasal Cannula 2.0 98.6 Physical Exam General: Alert, Oriented X3, Cooperative Heart: Regular rate, Normal S1 Lungs: Clear, Other Abdomen: Normal bowel sounds, Soft Extremities: No clubbing, No cyanosis Skin: No rashes, No breakdown Labs LABS Laboratory Tests Test 03/15/19 11:57 03/15/19 17:09 03/15/19 21:01 03/16/19 05:50 Glucose (Fingerstick) 166 mg/dL (70-99) 103 mg/dL (70-99) 161 mg/dL (70-99) Sodium Level 141 mmol/L (136-145) Potassium Level 4.1 mmol/L (3.5-5.1) Chloride Level 101 mmol/L (98-107) Carbon Dioxide Level 38 mmol/L (21-32) Anion Gap 2 (6-14) Blood Urea Nitrogen 22 mg/dL (7-20) Creatinine 0.9 mg/dL (0.6-1.0) Estimated GFR (Cockcroft-Gault) 76.0 Glucose Level 153 mg/dL (70-99) Calcium Level 8.8 mg/dL (8.5-10.1) Magnesium Level 2.1 mg/dL (1.8-2.4) Test 03/16/19 07:04 Glucose (Fingerstick) 149 mg/dL (70-99) Assessment and Plan Assessmemt and Plan Problems Medical Problems: (1) Chronic anemia Status: Acute (2) Dyspnea Status: Acute (3) Hypercalcemia Status: Acute (4) Hypertensive urgency Status: Acute (5) Noncompliance Status: Acute Comment Review of Relevant I have reviewed the following items nolan (where applicable) has been applied. Labs Laboratory Tests Test 03/14/19 11:44 03/14/19 17:20 03/14/19 20:49 03/15/19 07:54 Glucose (Fingerstick) 200 mg/dL (70-99) 112 mg/dL (70-99) 143 mg/dL (70-99) 136 mg/dL (70-99) Test 03/15/19 11:57 03/15/19 17:09 03/15/19 21:01 03/16/19 05:50 Glucose (Fingerstick) 166 mg/dL (70-99) 103 mg/dL (70-99) 161 mg/dL (70-99) Sodium Level 141 mmol/L (136-145) Potassium Level 4.1 mmol/L (3.5-5.1) Chloride Level 101 mmol/L (98-107) Carbon Dioxide Level 38 mmol/L (21-32) Anion Gap 2 (6-14) Blood Urea Nitrogen 22 mg/dL (7-20) Creatinine 0.9 mg/dL (0.6-1.0) Estimated GFR (Cockcroft-Gault) 76.0 Glucose Level 153 mg/dL (70-99) Calcium Level 8.8 mg/dL (8.5-10.1) Magnesium Level 2.1 mg/dL (1.8-2.4) Test 03/16/19 07:04 Glucose (Fingerstick) 149 mg/dL (70-99) Laboratory Tests Test 03/15/19 11:57 03/15/19 17:09 03/15/19 21:01 03/16/19 05:50 Glucose (Fingerstick) 166 mg/dL (70-99) 103 mg/dL (70-99) 161 mg/dL (70-99) Sodium Level 141 mmol/L (136-145) Potassium Level 4.1 mmol/L (3.5-5.1) Chloride Level 101 mmol/L (98-107) Carbon Dioxide Level 38 mmol/L (21-32) Anion Gap 2 (6-14) Blood Urea Nitrogen 22 mg/dL (7-20) Creatinine 0.9 mg/dL (0.6-1.0) Estimated GFR (Cockcroft-Gault) 76.0 Glucose Level 153 mg/dL (70-99) Calcium Level 8.8 mg/dL (8.5-10.1) Magnesium Level 2.1 mg/dL (1.8-2.4) Test 03/16/19 07:04 Glucose (Fingerstick) 149 mg/dL (70-99) Medications Current Medications Hydralazine HCl (Apresoline Inj) 20 mg 1X ONCE IVP Last administered on 03/13/19 14:52; Start 03/13/19 at 15:00; Stop 03/13/19 at 15:01; Status DC Acetaminophen/ Hydrocodone Bitart (Lortab 5/325) 1 tab 1X ONCE PO Last administered on 03/13/19 15:43; Start 03/13/19 at 15:45; Stop 03/13/19 at 15:46; Status DC Amlodipine Besylate (Norvasc) 5 mg DAILY PO Last administered on 03/16/19 08:46; Start 03/14/19 at 09:00 Aspirin (Ecotrin) 81 mg DAILY PO Last administered on 03/16/19 08:45; Start 03/14/19 at 09:00 Atorvastatin Calcium (Lipitor) 20 mg HS PO Last administered on 03/15/19at 21:02; Start 03/13/19 at 21:00 Calcium/Vitamin D (Oscal D 500mg/ 200uts) 1 tab DAILY PO Last administered on 03/16/19 08:45; Start 03/14/19 at 09:00 Capsaicin (Zostrix) 1 tre PRN TID PRN TP PAIN; Start 03/13/19 at 17:00 Clonazepam (KlonoPIN) 0.5 mg TID PO Last administered on 03/16/19 08:46; Start 03/13/19 at 21:00 Clopidogrel Bisulfate (Plavix) 75 mg DAILYWBKFT PO Last administered on 03/16/19 08:46; Start 03/14/19 at 08:00 Docusate Sodium (Colace) 100 mg BID PO Last administered on 03/16/19 08:46; Start 03/13/19 at 21:00 Ferrous Sulfate (Feosol) 325 mg DAILYWBKFT PO Last administered on 03/16/19 08:46; Start 03/14/19 at 08:00 Fluoxetine HCl (PROzac) 20 mg DAILY PO Last administered on 03/16/19 08:46; Start 03/14/19 at 09:00 Furosemide (Lasix) 80 mg BID94 PO Last administered on 03/16/19 08:46; Start 03/14/19 at 09:00 Glimepiride (Amaryl) 2 mg DAILYWBKFT PO Last administered on 03/16/19 08:45; Start 03/14/19 at 08:00 Metoprolol Tartrate (Lopressor) 25 mg BID PO Last administered on 03/16/19 08:46; Start 03/13/19 at 21:00 Nitroglycerin (Nitrostat) 0.4 mg PRN Q5MIN PRN SL CHEST PAIN; Start 03/13/19 at 17:00 Ondansetron HCl (Zofran Odt) 4 mg PRN Q6HRS PRN PO NAUSEA; Start 03/13/19 at 17:00 Oxycodone/ Acetaminophen (Percocet 10/325) 2 tab PRN Q4HRS PRN PO SEVERE PAIN Last administered on 03/16/19 05:18; Start 03/13/19 at 17:00 Pantoprazole Sodium (Protonix) 40 mg DAILYAC PO Last administered on 03/16/19 08:45; Start 03/14/19 at 07:30 Zolpidem Tartrate (Ambien) 5 mg QHS PO Last administered on 03/15/19 21:02; Start 03/13/19 at 21:00 Insulin Glargine (Lantus Syringe) 8 unit QHS SQ Last administered on 03/15/19 21:11; Start 03/13/19 at 21:00 Losartan Potassium (Cozaar) 100 mg DAILY PO Last administered on 03/16/19 08:45; Start 03/14/19 at 09:00 Ceftriaxone Sodium (Rocephin) 1 gm Q24H IVP Last administered on 03/15/19 21: 01; Start 03/13/19 at 20:00 Lactobacillus Rhamnosus (Culturelle) 1 cap BID PO Last administered on 03/16/19 08:46; Start 03/14/19 at 09:00 Active Scripts Active Basaglar Kwikpen U-100 (Insulin Glargine,Hum.rec.anlog) 100 Unit/1 Ml Insuln.pen 8 Unit SQ QHS 30 Days Feosol (Ferrous Sulfate) 325 Mg Tablet 325 Mg PO DAILYWBKFT 30 Days Protonix (Pantoprazole Sodium) 40 Mg Tablet.dr 40 Mg PO DAILYAC 60 Days Clopidogrel (Clopidogrel Bisulfate) 75 Mg Tablet 75 Mg PO DAILYWBKFT Ondansetron Odt (Ondansetron) 4 Mg Tab.rapdis 1 Tab PO PRN Q6-8HRS Proair Hfa Inhaler (Albuterol Sulfate) 8.5 Gm Hfa.aer.ad 1 Puff INH PRN Q6HRS PRN Amaryl (Glimepiride) 2 Mg Tablet 2 Mg PO DAILY 30 Days Reported Percocet 10-325 Mg Tablet (Oxycodone/Acetaminophen) 1 Each Tablet 2 Tab PO PRN Q4HRS PRN Losartan Potassium 100 Mg Tablet 100 Mg PO DAILY Amlodipine Besylate 5 Mg Tablet 5 Mg PO DAILY Docusate Sodium 100 Mg Capsule 1 Cap PO BID Metoprolol Tartrate 25 Mg Tablet 25 Mg PO BID Capsaicin 60 Gm Cream..g. 60 Gm TP PRN TID apply to morgan feet Calcium 500 + Vit D 200 Caplet (Calcium Carbonate/Vitamin D3) 1 Each Tablet 1 Each PO DAILY Zolpidem Tartrate 5 Mg Tablet 5 Mg PO QHS Clonazepam (Clonazepam) 0.5 Mg Tablet 0.5 Mg PO TID Fluoxetine Hcl 20 Mg Capsule 1 Cap PO DAILY Furosemide 80 Mg Tablet 80 Mg PO BID NITROGLYCERIN SubLingual (Nitroglycerin) 0.4 Mg Tab.subl 0.4 Mg SL PRN Q5MIN PRN Atorvastatin Calcium 20 Mg Tablet 20 Mg PO HS Aspir 81 (Aspirin) 81 Mg Tablet.dr 1 Tab PO DAILY Vitals/I & O Vital Sign - Last 24 Hours 03/15/19 03/15/19 03/15/19 03/15/19 10:39 15:00 19:17 19:39 Temp 97.8 97.8 97.8 97.8 97.8 97.8 Pulse 60 84 60 Resp 18 18 18 B/P (MAP) 132/57 (82) 128/58 (81) 117/56 (76) Pulse Ox 98 92 97 O2 Delivery Nasal Cannula Nasal Cannula Nasal Cannula O2 Flow Rate 2.0 2.0 2.0 2.0 03/15/19 03/15/19 03/15/19 03/15/19 21:05 21:07 22:07 23:05 Temp 97.4 97.4 Pulse 60 60 Resp 16 16 18 B/P (MAP) 148/65 120/53 (75) Pulse Ox 97 98 98 O2 Delivery Nasal Cannula Nasal Cannula Nasal Cannula O2 Flow Rate 2.0 2.0 2.0 03/16/19 03/16/19 03/16/19 03/16/19 01:15 02:15 02:33 05:18 Temp 97.9 97.9 Pulse 61 Resp 16 16 16 16 B/P (MAP) 126/61 (82) Pulse Ox 98 98 97 97 O2 Delivery Nasal Cannula Nasal Cannula Nasal Cannula Nasal Cannula O2 Flow Rate 2.0 2.0 2.0 2.0 03/16/19 03/16/19 03/16/19 03/16/19 07:00 08:45 08:46 08:46 Temp 98.6 98.6 Pulse 60 60 60 60 Resp 18 B/P (MAP) 145/67 (93) 145/67 145/67 145/67 Pulse Ox 97 O2 Delivery Nasal Cannula O2 Flow Rate 2.0 Intake and Output 03/15/19 03/15/19 03/16/19 15:00 23:00 07:00 Intake Total 298 ml 480 ml 840 ml Output Total 900 ml 2150 ml Balance 298 ml -420 ml -1310 ml VENKAT ALEJANDRO MD Mar 16, 2019 08:53
[2019-03-16] MEDS ORDERED: CEFU500T46 PO (08:56)
--- NOTE | 2019-03-16 08:57 | SNU/HH DC ---
DISCHARGE WITH HOME HEALTH DISCHARGE INFORMATION: Discharge Date: Mar 16, 2019 Final Diagnosis: Problems Medical Problems: (1) Chronic anemia Status: Acute (2) Dyspnea Status: Acute (3) Hypercalcemia Status: Acute (4) Hypertensive urgency Status: Acute (5) Noncompliance Status: Acute Condition on Discharge: Stable CODE STATUS: Code Status: Full HOME HEALTH: Face to Face: I certify this patient is under my care and that I, or a nurse practitioner or physician's drug safety assistant working with me, had a face to face encounter that meets the physician face to face encounter requirements with this patient on 03/16/2019. Medical Complications: CHF, COPD RN For Eval/Treatment: Yes Physical Therapy For: Evalulation/Treatment Occupational Therapy For: Evaluation/Treatment Home Health Aide For: Self-care Pt Meets Homebound Status: Extreme weakness w/ amb. POST DISCHARGE ORDERS: Activity Instructions for Disc: Activity as tolerated Weight Bearing Status after Di: As tolerated DIET AFTER DISCHARGE: Cardiac Wound/Incision Care: No wound care needed CHECKS AFTER DISCHARGE: Checks after discharge: Check blood press - daily, Check blood sugar, ac/hs, Check your Temp as needed, Weigh Yourself Daily TREATMENT/EQUIPMENT ORDERS: Adaptive Equipment Issued: Walker Discharge Respiratory Equipmen: Oxygen CERTIFICATION STATEMENT: Certification Statement: Certification Statement: Based on the above finding, I certify that this patient is confined to the home and needs intermittent [place] [facility] care, physical therapy and/or speech therapy, or continues to need occupational therapy.~ This patient is under my care, and I have initiated the establishment of the plan of care.~ This patient will be followed by myself or a community physician who will periodically review the plan of care. Home Meds Active Scripts Cefuroxime Axetil (CEFUROXIME) 500 Mg Tablet, 1 TAB PO BID for Bronchitis for 7 Days, #14 TAB 0 Refills Prov:VENKAT ALEJANDRO MD 03/16/19 Insulin Glargine,Hum.rec.anlog (Basaglar Kwikpen U-100) 100 Unit/1 Ml Insuln.pen, 8 UNIT SQ QHS for DM2 for 30 Days, #3 EACH 2 Refills Prov:VENKAT ALEJANDRO MD 03/04/19 Ferrous Sulfate (FEOSOL) 325 Mg Tablet, 325 MG PO DAILYWBKFT for ROXANE for 30 Days, #30 TAB 2 Refills Prov:RIFFEL,CHRISTOPHER S MD 02/16/19 Pantoprazole Sodium (PROTONIX ) 40 Mg Tablet., 40 MG PO DAILYAC for GERD for 60 Days, #60 TAB Prov:CATHIE KNIGHT MD 01/29/19 Clopidogrel Bisulfate (CLOPIDOGREL) 75 Mg Tablet, 75 MG PO DAILYWBKFT for heart protection, #30 TAB Prov:LÓPEZ BARRIOS MD 11/07/18 Ondansetron (ONDANSETRON ODT) 4 Mg Tab.rapdis, 1 TAB PO PRN Q6-8HRS, #16 TAB Prov:DESMOND CARSON MANAGER ADMINISTRATION 08/13/18 Albuterol Sulfate (PROAIR HFA INHALER) 8.5 Gm Hfa.aer.ad, 1 PUFF INH PRN Q6HRS PRN for SHORTNESS OF BREATH, #1 INHALER 0 Refills Prov:MILLER ORTIZ MD 06/21/18 Glimepiride (AMARYL) 2 Mg Tablet, 2 MG PO DAILY for 30 Days, #30 TAB Prov:RADHA PIERRE MD 07/04/17 Reported Medications Oxycodone/Apap 10-325 (PERCOCET 10-325 MG TABLET ) 1 Each Tablet, 2 TAB PO PRN Q4HRS PRN for PAIN, TAB 0 Refills 03/10/19 Losartan Potassium (LOSARTAN POTASSIUM) 100 Mg Tablet, 100 MG PO DAILY for HTN 02/03/19 Amlodipine Besylate (AMLODIPINE BESYLATE) 5 Mg Tablet, 5 MG PO DAILY for HTN, TAB 02/03/19 Docusate Sodium (DOCUSATE SODIUM) 100 Mg Capsule, 1 CAP PO BID for constipation, #14 CAP 12/05/18 Metoprolol Tartrate (METOPROLOL TARTRATE) 25 Mg Tablet, 25 MG PO BID for FOR HYPERTENSION, #60 TAB 0 Refills 08/30/18 Capsaicin (CAPSAICIN) 60 Gm Cream..g., 60 GM TP PRN TID for , EACH apply to morgan feet 07/14/18 Calcium Carbonate/Vitamin D3 (CALCIUM 500 + VIT D 200 CAPLET) 1 Each Tablet, 1 EACH PO DAILY for supplement, TAB 05/16/18 Zolpidem Tartrate (ZOLPIDEM TARTRATE) 5 Mg Tablet, 5 MG PO QHS for insomnia, TAB 0 Refills 05/16/18 Clonazepam (CLONAZEPAM ) 0.5 Mg Tablet, 0.5 MG PO TID for anti-anxiety, TAB 05/16/18 Fluoxetine Hcl (FLUOXETINE HCL) 20 Mg Capsule, 1 CAP PO DAILY for anti- depressent, #90 CAP 1 Refill 05/16/18 Furosemide (FUROSEMIDE) 80 Mg Tablet, 80 MG PO BID for heart, TAB 10/09/17 Nitroglycerin (NITROGLYCERIN SubLingual) 0.4 Mg Tab.subl, 0.4 MG SL PRN Q5MIN PRN for CHEST PAIN, BOTTLE 11/01/16 Atorvastatin Calcium (ATORVASTATIN CALCIUM) 20 Mg Tablet, 20 MG PO HS for FOR CHOLESTEROL, #30 TAB 0 Refills 10/28/16 Aspirin (ASPIR 81) 81 Mg Tablet.dr, 1 TAB PO DAILY, #30 TAB 5 Refills 10/28/16 Discontinued Reported Medications Albuterol Sulfate (ALBUTEROL SULFATE CONC NEB SOLN) 2.5 Mg/0.5 Ml Vial.neb, 5 MG NEB PRN PRN for WHEEZING, EACH 0 Refills 10/07/17 VENKAT ALEJANDRO MD Mar 16, 2019 08:57
[2019-03-16 10:51] VITALS: BP 131/60
--- NOTE | 2019-03-16 12:11 | NUR ---
SS following up with discharge planning. Discharge orders received for home healthcare. SS phoned and faxed clinical and discharge orders to [facility], ; fax [phone]. Pt's RN notified.
--- NOTE | 2019-03-16 14:40 | NUR ---
Discharge Note: GRETCHEN BONILLA [address] Discharge instructions and discharge home medications reviewed with Patient and a copy given. All questions have been answered and understanding verbalized. The following instructions and handouts were given: Hypertension Discontinued lines and drains: Peripheral IV intact. Patient discharged to Home with Home Health with Self via Wheelchair
--- NOTE | 2019-03-16 20:43 | PDOC3 ---
Discharge Summary Visit Information Date of Admission: Mar 13, 2019 Date of Discharge: Mar 16, 2019 Admitting Diagnosis: Fever and dyspnea Final Diagnosis Problems Medical Problems: (1) Chronic anemia Status: Acute (2) Dyspnea Status: Acute (3) Hypercalcemia Status: Acute (4) Hypertensive urgency Status: Acute (5) Noncompliance Status: Acute Brief Hospital Course Allergies Allergies Coded Allergies Type Severity Reaction Last Updated Verified No Known Drug Allergies 03/13/19 No Vital Signs Vital Signs Date Time Temp Pulse Resp B/P (MAP) Pulse Ox O2 Delivery O2 Flow Rate FiO2 03/16/19 13:54 18 Room Air 03/16/19 10:51 98.2 60 131/60 (83) 96 2.0 98.2 Lab Results Laboratory Tests Test 03/14/19 20:49 03/15/19 07:54 03/15/19 11:57 03/15/19 17:09 Glucose (Fingerstick) 143 mg/dL (70-99) 136 mg/dL (70-99) 166 mg/dL (70-99) 103 mg/dL (70-99) Test 03/15/19 21:01 03/16/19 05:50 03/16/19 07:04 03/16/19 11:33 Glucose (Fingerstick) 161 mg/dL (70-99) 149 mg/dL (70-99) 110 mg/dL (70-99) Sodium Level 141 mmol/L (136-145) Potassium Level 4.1 mmol/L (3.5-5.1) Chloride Level 101 mmol/L (98-107) Carbon Dioxide Level 38 mmol/L (21-32) Anion Gap 2 (6-14) Blood Urea Nitrogen 22 mg/dL (7-20) Creatinine 0.9 mg/dL (0.6-1.0) Estimated GFR (Cockcroft-Gault) 76.0 Glucose Level 153 mg/dL (70-99) Calcium Level 8.8 mg/dL (8.5-10.1) Magnesium Level 2.1 mg/dL (1.8-2.4) Laboratory Tests Test 03/15/19 21:01 03/16/19 05:50 03/16/19 07:04 03/16/19 11:33 Glucose (Fingerstick) 161 mg/dL (70-99) 149 mg/dL (70-99) 110 mg/dL (70-99) Sodium Level 141 mmol/L (136-145) Potassium Level 4.1 mmol/L (3.5-5.1) Chloride Level 101 mmol/L (98-107) Carbon Dioxide Level 38 mmol/L (21-32) Anion Gap 2 (6-14) Blood Urea Nitrogen 22 mg/dL (7-20) Creatinine 0.9 mg/dL (0.6-1.0) Estimated GFR (Cockcroft-Gault) 76.0 Glucose Level 153 mg/dL (70-99) Calcium Level 8.8 mg/dL (8.5-10.1) Magnesium Level 2.1 mg/dL (1.8-2.4) Brief Hospital Course Ms Laguna is a 64yo F w/ PMHx HTN, SSS, HLD, obesity, chronic pain syndrome, chronic systolic CHF, cor pulmonale with hypoxia on 3L NCO2 who pr esented with acute chest pain with nausea. On further ROS she notes substernal and right sided chest pain. She also c/o a headache and wheezing. Patient states that she took a breathing treatment last night and it did help some. UDS positive for cannabinoids. CXR with increased pulmonary vascular congestion and LE edema worse. BNP was 2657. She has been admitted frequently for chest pain with [facility] 04/2018: 1. 40% stenosis involving the obtuse marginal branch of left circumflex artery without any other significant stenoses. The left internal mammary artery graft to the left anterior descending artery and the saphenous vein graft to the obtuse marginal branch were patent. Of note, patient seems to have had CABG for thrombus in left main coronary artery and left anterior descending artery in the past. No lesions were noted because the thrombus resolved. 2. Akinetic distal anterior wall and the entire apical wall with ejection fraction estimated at 40%. EKG - sinus with no STEMI. No chest pain. She c/o RLQ abdominal pain and nausea, no further vomiting. She has missed GI f/u outpatient and has some difficulty with compliance. Admitted for further treatment. Moving better, asking for pain medication every 4 hours. I have discussed considering lowering her large doses of opioids, that they may be contributing to her GI symptoms and overall hospital readmissions. Her CP and SOB have improved somewhat, now still with right breast pain. Seen by cardiology. Work of breathing improved with antibiotics and steroids. Seen by cardiology Patient seen and examined on the telemetry floor She still having low-grade fevers and is very weak. Plan for home with home health today to have Fiorella with family. Chart reviewed Discussed with RN Problem list: Fevers Depression Accelerated Hypertension Weakness Multiple comorbidities Neuropathy Sciatica Right breast pain Intractable abdominal pain with nausea and vomiting. IV anti-emetics. 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 I have counseled endlessly on this Chest pain - likely demand from acute CHF vs referred GI pain. Will maintain telemetry and trend troponins given her high risk and frequent hospitalizations Accelerated Hypertension - not currently controlled SSS s/p PPM - Stable Hyperlipidemia - Continue statin therapy Chronic stable angina Acute heart failure - systolic - Lasix x1 in ED, will place on IV lasix, daily BMP and Mag levels Akinetic distal anterior wall and the entire apical wall with ejection fraction estimated at 40%.per cath 05/12 Morbid obesity Diabetes type 2 - will repeat A1c. Sliding scale GERD - cont PPI CAD WITH HX STENTS - recent cardiac catheterization 04/2018 showed patent GARCIA to LAD and patent SVG to OM. . No further cardiac workup is indicated Acute hypoxia - likely cor pulmonale Greater than 30 minutes spent on d/c Discharge Information Condition at Discharge: Improved Follow Up: Weeks (1) Disposition/Orders: D/C to Home w/ HH Scheduled Amlodipine Besylate (Amlodipine Besylate) 5 Mg Tablet, 5 MG PO DAILY for HTN, (Reported) Entered as Reported by: CARMEN LAN on 02/03/19 1703 Last Action: Continued on 03/13/191701 by AURA ARCEO Aspirin (Aspir 81) 81 Mg Tablet., 1 TAB PO DAILY, #30 Ref 5 (Reported) Entered as Reported by: FIFI WALSH on 10/28/16 1058 Last Action: Continued on 03/13/191700 by AURA ARCEO Atorvastatin Calcium (Atorvastatin Calcium) 20 Mg Tablet, 20 MG PO HS for FOR CHOLESTEROL, #30 Ref 0 (Reported) Entered as Reported by: FIFI WALSH on 10/28/16 1108 Last Action: Continued on 03/13/191700 by AURA ARCEO Calcium Carbonate/Vitamin D3 (Calcium 500 + Vit D 200 Caplet) 1 Each Tablet, 1 EACH PO DAILY for supplement, (Reported) Entered as Reported by: KENNEY YANG on 05/16/182321 Last Action: Continued on 03/13/191701 by AURA ARCEO Capsaicin (Capsaicin) 60 Gm Cream..g., 60 GM TP PRN TID for , (Reported) apply to morgan feet Entered as Reported by: Tiffany Dodson on 07/14/182110 Last Action: Continued on 03/13/191701 by AURA ARCEO Cefuroxime Axetil (Cefuroxime) 500 Mg Tablet, 1 TAB PO BID for Bronchitis for 7 Days, #14 Ref 0 Prescribed by: VENKAT ALEJANDRO MD on 03/16/19 0856 Clonazepam (Clonazepam ) 0.5 Mg Tablet, 0.5 MG PO TID for anti-anxiety, (Reported) Entered as Reported by: KENNEY YANG on 05/16/182321 Last Action: Continued on 03/13/191701 by AURA ARCEO Clopidogrel Bisulfate (Clopidogrel) 75 Mg Tablet, 75 MG PO DAILYWBKFT for heart protection, #30 Prescribed by: LÓPEZ BARRIOS on 11/07/18 1217 Last Action: Continued on 03/13/191701 by AURA ARCEO Docusate Sodium (Docusate Sodium) 100 Mg Capsule, 1 CAP PO BID for constipation, #14 (Reported) Entered as Reported by: MAGDI NUNEZ RN on 12/05/18 0116 Last Action: Continued on 03/13/191701 by AURA ARCEO Ferrous Sulfate (Feosol) 325 Mg Tablet, 325 MG PO DAILYWBKFT for ROXANE for 30 Days, #30 Ref 2 Prescribed by: VENKAT ALEJANDRO MD on 02/16/19 1248 Last Action: Continued on 03/13/191701 by AURA ARCEO Fluoxetine Hcl (Fluoxetine Hcl) 20 Mg Capsule, 1 CAP PO DAILY for anti- depressent, #90 Ref 1 (Reported) Entered as Reported by: KENNEY YANG on 05/16/182321 Last Action: Continued on 03/13/191701 by AURA ARCEO Furosemide (Furosemide) 80 Mg Tablet, 80 MG PO BID for heart, (Reported) Entered as Reported by: NAM MORTENSEN on 10/09/17 1408 Last Action: Continued on 03/13/191701 by AURA ARCEO Glimepiride (Amaryl) 2 Mg Tablet, 2 MG PO DAILY for 30 Days, #30 Prescribed by: RADHA PIERRE MD on 07/04/17 1010 Last Action: Continued on 03/13/191700 by AURA ARCEO Insulin Glargine,Hum.rec.anlog (Basaglar Kwikpen U-100) 100 Unit/1 Ml Insuln.pen, 8 UNIT SQ QHS for DM2 for 30 Days, #3 Ref 2 Prescribed by: VENKAT ALEJANDRO MD on 03/04/19 1230 Last Action: Converted on 03/13/191701 by AURA ARCEO Losartan Potassium (Losartan Potassium) 100 Mg Tablet, 100 MG PO DAILY for HTN, (Reported) Entered as Reported by: CARMEN LAN on 02/03/191702 Last Action: Converted on 03/13/191701 by AURA ARCEO Metoprolol Tartrate (Metoprolol Tartrate) 25 Mg Tablet, 25 MG PO BID for FOR HYPERTENSION, #60 Ref 0 (Reported) Entered as Reported by: JOVANNY MORALES on 08/30/182319 Last Action: Continued on 03/13/191701 by AURA ARCEO Ondansetron (Ondansetron Odt) 4 Mg Tab.rapdis, 1 TAB PO PRN Q6-8HRS, #16 Prescribed by: Celine Cevallos APRN on 08/13/182105 Last Action: Continued on 03/13/191701 by AURA ARCEO Pantoprazole Sodium (Protonix ) 40 Mg Tablet.dr, 40 MG PO DAILYAC for GERD for 60 Days, #60 Prescribed by: CATHIE KNIGHT on 01/29/19 0857 Last Action: Continued on 03/13/191701 by AURA ARCEO Zolpidem Tartrate (Zolpidem Tartrate) 5 Mg Tablet, 5 MG PO QHS for insomnia, Ref 0 (Reported) Entered as Reported by: KENNEY YANG on 05/16/182321 Last Action: Continued on 03/13/191701 by AURA ARCEO Scheduled PRN Albuterol Sulfate (Proair Hfa Inhaler) 8.5 Gm Hfa.aer.ad, 1 PUFF INH PRN Q6HRS PRN for SHORTNESS OF BREATH, #1 Ref 0 Prescribed by: MILLER ORTIZ MD on 06/21/181710 Nitroglycerin (NITROGLYCERIN SubLingual) 0.4 Mg Tab.subl, 0.4 MG SL PRN Q5MIN PRN for CHEST PAIN, (Reported) Entered as Reported by: LOYDA CELAYA RN on 11/01/16 0013 Last Action: Continued on 03/13/191700 by AURA ARCEO Oxycodone/Apap 10-325 (Percocet 10-325 Mg Tablet ) 1 Each Tablet, 2 TAB PO PRN Q4HRS PRN for PAIN, Ref 0 (Reported) Entered as Reported by: CARMEN LAN on 03/10/191699 Last Action: Continued on 03/13/191701 by AURA ARCEO Discontinued Medications Albuterol Sulfate (Albuterol Sulfate Conc Neb Soln) 2.5 Mg/0.5 Ml Vial.neb, 5 MG NEB PRN PRN for WHEEZING, Ref 0 (Reported) Entered as Reported by: ROMY PHELAN on 10/07/172035 VENKAT ALEJANDRO MD Mar 16, 2019 20:43
== END 2019-03-16 14:30 | disposition home health service (06) | DRG 189 ==
LOC: ER 13:29 → 2 SOUTH 15:32
PROVIDERS: ADMIT Internal Medicine; ATTEND Internal Medicine
DX: J96.21 Acute and chronic respiratory failure with hypoxia (principal); I50.43 Acute on chronic combined systolic (congestive) and diastolic (congestive) heart failure; Z68.41 Body mass index [BMI] 40.0-44.9, adult; I13.0 Hypertensive heart and chronic kidney disease with heart failure and stage 1 through stage 4 chronic kidney disease, or unspecified chronic kidney disease; I16.0 Hypertensive urgency; M19.90 Unspecified osteoarthritis, unspecified site; E78.00 Pure hypercholesterolemia, unspecified; J44.9 Chronic obstructive pulmonary disease, unspecified; E11.40 Type 2 diabetes mellitus with diabetic neuropathy, unspecified; E78.5 Hyperlipidemia, unspecified; F32.9 Major depressive disorder, single episode, unspecified; K21.9 Gastro-esophageal reflux disease without esophagitis; N18.9 Chronic kidney disease, unspecified; E66.01 Morbid (severe) obesity due to excess calories; E11.22 Type 2 diabetes mellitus with diabetic chronic kidney disease; Z96.659 Presence of unspecified artificial knee joint; I49.5 Sick sinus syndrome; M54.30 Sciatica, unspecified side; N64.4 Mastodynia; G89.4 Chronic pain syndrome; I27.81 Cor pulmonale (chronic); I25.2 Old myocardial infarction; Z91.19 Patient's noncompliance with other medical treatment and regimen; Z95.1 Presence of aortocoronary bypass graft; Z90.710 Acquired absence of both cervix and uterus; Z95.0 Presence of cardiac pacemaker; Z99.81 Dependence on supplemental oxygen; Z88.8 Allergy status to other drugs, medicaments and biological substances; I25.118 Atherosclerotic heart disease of native coronary artery with other forms of angina pectoris
CPT/HCPCS: 36415; 71045; 80048; 80053; 82550; 82962; 83735; 83880; 84484; 85025; 93005; 96374; J0360; J0696; J1815; 99285-25; G0378

== ENCOUNTER 2019-04-03 17:01 | Emergency (ER) | payer MEDICARE ==
[~2019-04-03 17:01] MED LIST changes: +CEFU500T46 PO; -GLIM1TAB3; +GLIM1TAB7
[2019-04-03] MEDS ORDERED: diazePAM 5 MG TABLET PO ONE (17:15)
[2019-04-03] MEDS ORDERED: ACETAMINOPHEN 500 MG TABLET PO ONE (17:15)
[2019-04-03] MEDS ORDERED: ONDANSETRON PF 4 MG/2 ML VIAL. IVP ONE (17:15)
[2019-04-03] MEDS ORDERED: LABETALOL 20 MG/4 ML DISP.SYRIN. IVP ONE (17:15)
[2019-04-03] MEDS ORDERED: KETOROLAC 30 MG/ML VIAL. IVP ONE (17:15)
[2019-04-03 17:28] LABS: BASO # 0.1 x10^3/uL (0.0-0.2); BASO % 1 % (0-3); EOS # 0.1 x10^3/uL (0.0-0.7); EOS % 1 % (0-3); HEMATOCRIT 36.8 % (36.0-47.0); HEMOGLOBIN 11.5 g/dL (12.0-15.5); LYMPH # 0.9 x10^3/uL (1.0-4.8); LYMPH % 11 % (24-48); MEAN CORPUSCULAR HEMOGLOBIN 25 pg (25-35); MEAN CORPUSCULAR HGB CONC 31 g/dL (31-37); MEAN CORPUSCULAR VOLUME 80 fL (79-100); MONO # 0.6 x10^3/uL (0.0-1.1); MONO % 7 % (0-9); NEUT # 6.6 x10^3/uL (1.8-7.7); NEUT % 80 % (31-73); PLATELET COUNT 289 x10^3/uL (140-400); RED BLOOD COUNT 4.59 x10^6/uL (3.50-5.40); RED CELL DISTRIBUTION WIDTH 18.6 % (11.5-14.5); WHITE BLOOD COUNT 8.2 x10^3/uL (4.0-11.0)
--- NOTE | 2019-04-03 17:28 | PHYS DOC ---
Past Medical History Past Medical History: CHF, COPD, Diabetes-Type II, High Cholesterol, Hypertension, [place], Other Additional Past Medical Histor: O2 @3 L PRN, chronic pain, NEUROPATHY (DESMOND CARSON APRN) Past Surgical History: Cholecystectomy, Coronary Bypass Surgery, Hysterectomy, Pacemaker Additional Past Surgical Histo: HERNIA REPAIR, CABG X 2 VESSELS (DESMOND CARSON APRN) Alcohol Use: None Drug Use: None (DESMOND CARSON APRN) Attending Signature I have participated in the care of this patient and I have reviewed and agree with all pertinent clinical information above including history, exam, and recommendations. (FRAN WHITMORE MD) Adult General Chief Complaint Chief Complaint: HEADACHE HPI HPI Patient is a 64 year old female with history of hypertension, high cholesterol, CHF, [place], diabetes type, who presents to the ED today complaining of a 7 out of 10 throbbing frontal headache that began 2 days ago. Patient is also complaining of nausea with no vomiting. Denies this being the worst headache in her life. She states the pain radiates to her neck. Denies any fever, coughing, congestion. She reports she was discharged from the hospital 2 days ago after being admitted for COPD exacerbation. (DESMOND CARSON APRN) Review of Systems Review of Systems Constitutional: Denies fever or chills [] Eyes: Denies change in visual acuity, redness, or eye pain [] HENT: Denies nasal congestion or sore throat [] Respiratory: Denies cough or shortness of breath [] Cardiovascular: No additional information not addressed in HPI [] GI: Denies abdominal pain, nausea, vomiting, bloody stools or diarrhea [] : Denies dysuria or hematuria [] Musculoskeletal: Reports neck pain, denies back pain Integument: Denies rash or skin lesions [] Neurologic: Reports headache, denies, focal weakness or sensory changes [] All other systems were reviewed and found to be within normal limits, except as documented in this note. (DESMOND CARSON APRN) Current Medications Current Medications Current Medications Medications (Trade) Dose Ordered Sig/Susan Start Time Stop Time Status Last Admin Dose Admin Acetaminophen (Tylenol) 1,000 mg 1X ONCE 04/03/19 17:15 04/03/19 17:18 DC 04/03/19 17:29 1,000 MG Diazepam (Valium) 5 mg 1X ONCE 04/03/19 17:15 04/03/19 17:18 DC 04/03/19 17:29 5 MG Ketorolac Tromethamine (Toradol 30mg Vial) 30 mg 1X ONCE 04/03/19 17:15 04/03/19 17:18 DC 04/03/19 17:29 30 MG Labetalol HCl (Normodyne Iv Push) 10 mg 1X ONCE 04/03/19 17:15 04/03/19 17:18 DC 04/03/19 17:31 10 MG Morphine Sulfate (Morphine Sulfate) 5 mg 1X ONCE 04/03/19 19:00 04/03/19 19:01 DC 04/03/19 19:10 5 MG Ondansetron HCl (Zofran) 4 mg 1X ONCE 04/03/19 17:15 04/03/19 17:18 DC 04/03/19 17:29 4 MG (FRAN WHITMORE MD) Allergies Allergies Allergies Coded Allergies Type Severity Reaction Last Updated Verified No Known Drug Allergies 03/13/19 No (FRAN WHITMORE MD) Physical Exam Physical Exam Constitutional: Well developed, well nourished, no acute distress, non-toxic appearance. [] HENT: Normocephalic, atraumatic, bilateral external ears normal, oropharynx moist, no oral exudates, nose normal. [] Eyes: PERRLA, EOMI, conjunctiva normal, no discharge. [] Neck: Normal range of motion, no tenderness, supple, no stridor. [] Cardiovascular: Old healed surgical incision noted midline Chest. Heart rate regular rhythm Lungs & Thorax: Bilateral breath sounds clear to auscultation [] Abdomen: Bowel sounds normal, soft, no tenderness, no masses, no pulsatile masses. [] Skin: Warm, dry, no erythema, no rash. [] Back: No tenderness, no CVA tenderness. [] Extremities: No tenderness, no cyanosis, no clubbing, ROM intact, no edema. [] Neurologic: Alert and oriented X 3, normal motor function, normal sensory function, no focal deficits noted. Cranial nerves II through XII intact Psychologic: Affect normal, judgement normal, mood normal. [] (DESMOND CARSON APRN) Current Patient Data Vital Signs Vital Signs Date Time Temp Pulse Resp B/P (MAP) Pulse Ox O2 Delivery O2 Flow Rate FiO2 1/11/20 19:10 Room Air 04/03/19 18:30 80 14 93 04/03/19 17:31 227/103 04/03/19 17:05 99.7 99.7 (FRAN WHITMORE MD) Lab Values Laboratory Tests Test 04/03/19 17:15 04/03/19 17:32 White Blood Count 8.2 x10^3/uL (4.0-11.0) Red Blood Count 4.59 x10^6/uL (3.50-5.40) Hemoglobin 11.5 g/dL (12.0-15.5) L Hematocrit 36.8 % (36.0-47.0) Mean Corpuscular Volume 80 fL (79-100) Mean Corpuscular Hemoglobin 25 pg (25-35) Mean Corpuscular Hemoglobin Concent 31 g/dL (31-37) Red Cell Distribution Width 18.6 % (11.5-14.5) H Platelet Count 289 x10^3/uL (140-400) Neutrophils (%) (Auto) 80 % (31-73) H Lymphocytes (%) (Auto) 11 % (24-48) L Monocytes (%) (Auto) 7 % (0-9) Eosinophils (%) (Auto) 1 % (0-3) Basophils (%) (Auto) 1 % (0-3) Neutrophils # (Auto) 6.6 x10^3/uL (1.8-7.7) Lymphocytes # (Auto) 0.9 x10^3/uL (1.0-4.8) L Monocytes # (Auto) 0.6 x10^3/uL (0.0-1.1) Eosinophils # (Auto) 0.1 x10^3/uL (0.0-0.7) Basophils # (Auto) 0.1 x10^3/uL (0.0-0.2) Sodium Level 138 mmol/L (136-145) Potassium Level 4.1 mmol/L (3.5-5.1) Chloride Level 98 mmol/L (98-107) Carbon Dioxide Level 34 mmol/L (21-32) H Anion Gap 6 (6-14) Blood Urea Nitrogen 7 mg/dL (7-20) Creatinine 0.7 mg/dL (0.6-1.0) Estimated GFR (Cockcroft-Gault) 101.6 BUN/Creatinine Ratio 10 (6-20) Glucose Level 137 mg/dL (70-99) H Calcium Level 10.7 mg/dL (8.5-10.1) H Magnesium Level 2.3 mg/dL (1.8-2.4) Total Bilirubin 0.6 mg/dL (0.2-1.0) Aspartate Amino Transferase (AST) 27 U/L (15-37) Alanine Aminotransferase (ALT) 16 U/L (14-59) Alkaline Phosphatase 92 U/L (46-116) Creatine Kinase 50 U/L (26-192) Creatine Kinase MB (Mass) 0.8 ng/mL (0.0-3.6) Creatine Kinase MB Relative Index % (0-4) Troponin I Quantitative < 0.017 ng/mL (0.000-0.055) HO-Wuf-O-Type Natriuretic Peptide 1884 pg/mL (0-124) H Total Protein 8.6 g/dL (6.4-8.2) H Albumin 3.8 g/dL (3.4-5.0) Albumin/Globulin Ratio 0.8 (1.0-1.7) L Influenza Type A Antigen Negative (NEGATIVE) Influenza Type B Antigen Negative (NEGATIVE) Laboratory Tests 04/03/19 17:15 Laboratory Tests 04/03/19 17:15 (FRAN WHITMORE MD) Lab Values Laboratory Tests Test 04/03/19 17:15 04/03/19 17:32 White Blood Count 8.2 x10^3/uL (4.0-11.0) Red Blood Count 4.59 x10^6/uL (3.50-5.40) Hemoglobin 11.5 g/dL (12.0-15.5) L Hematocrit 36.8 % (36.0-47.0) Mean Corpuscular Volume 80 fL (79-100) Mean Corpuscular Hemoglobin 25 pg (25-35) Mean Corpuscular Hemoglobin Concent 31 g/dL (31-37) Red Cell Distribution Width 18.6 % (11.5-14.5) H Platelet Count 289 x10^3/uL (140-400) Neutrophils (%) (Auto) 80 % (31-73) H Lymphocytes (%) (Auto) 11 % (24-48) L Monocytes (%) (Auto) 7 % (0-9) Eosinophils (%) (Auto) 1 % (0-3) Basophils (%) (Auto) 1 % (0-3) Neutrophils # (Auto) 6.6 x10^3/uL (1.8-7.7) Lymphocytes # (Auto) 0.9 x10^3/uL (1.0-4.8) L Monocytes # (Auto) 0.6 x10^3/uL (0.0-1.1) Eosinophils # (Auto) 0.1 x10^3/uL (0.0-0.7) Basophils # (Auto) 0.1 x10^3/uL (0.0-0.2) Sodium Level 138 mmol/L (136-145) Potassium Level 4.1 mmol/L (3.5-5.1) Chloride Level 98 mmol/L (98-107) Carbon Dioxide Level 34 mmol/L (21-32) H Anion Gap 6 (6-14) Blood Urea Nitrogen 7 mg/dL (7-20) Creatinine 0.7 mg/dL (0.6-1.0) Estimated GFR (Cockcroft-Gault) 101.6 BUN/Creatinine Ratio 10 (6-20) Glucose Level 137 mg/dL (70-99) H Calcium Level 10.7 mg/dL (8.5-10.1) H Magnesium Level 2.3 mg/dL (1.8-2.4) Total Bilirubin 0.6 mg/dL (0.2-1.0) Aspartate Amino Transferase (AST) 27 U/L (15-37) Alanine Aminotransferase (ALT) 16 U/L (14-59) Alkaline Phosphatase 92 U/L (46-116) Creatine Kinase 50 U/L (26-192) Creatine Kinase MB (Mass) 0.8 ng/mL (0.0-3.6) Creatine Kinase MB Relative Index % (0-4) Troponin I Quantitative < 0.017 ng/mL (0.000-0.055) BL-Fhn-I-Type Natriuretic Peptide 1884 pg/mL (0-124) H Total Protein 8.6 g/dL (6.4-8.2) H Albumin 3.8 g/dL (3.4-5.0) Albumin/Globulin Ratio 0.8 (1.0-1.7) L Influenza Type A Antigen Negative (NEGATIVE) Influenza Type B Antigen Negative (NEGATIVE) Laboratory Tests 04/03/19 17:15 Laboratory Tests 04/03/19 17:15 (DESMOND CARSON APRN) EKG EKG [address] Mcleod sinus rhythm with RBB HR 87 no STEMI EKG similar to 03/29/2019 (DESMOND CARSON APRN) Radiology/Procedures Radiology/Procedures []PROCEDURE: CT HEAD WO CONTRAST CT HEAD WO CONTRAST History: Headache. High blood pressure. Comparison: February 02, 2019 Technique: Noncontrast CT imaging was performed of the head. Exposure: One or more of the following individualized dose reduction techniques were utilized for this examination: 1. Automated exposure control 2. Adjustment of the mA and/or kV according to patient size 3. Use of iterative reconstruction technique. Findings: No intracranial hemorrhage. No mass effect. No hydrocephalus. Mild foci of decreased attenuation within the hemispheric white matter, most often due to chronic microvascular ischemia. Imaged orbits are unremarkable. Imaged paranasal sinuses and mastoid air cells are clear. Impression: 1. No acute intracranial abnormality. Electronically signed by: Jaydon Machado DO (04/03/2019 6:15 PM) [id number] DICTATED and SIGNED BY: JAYDON MACHADO DO DATE: 04/03/191814 (DESMOND CARSON APRN) Course & Med Decision Making Course & Med Decision Making Pertinent Labs and Imaging studies reviewed. (See chart for details) This is a 64-year-old female patient well known to this ED presenting to the ED complaining of a frontal headache with neck pain that began 2 days ago. Patient was discharged from the hospital 2 days ago for COPD exacerbation among other illnesses. Patient's workup is negative for any acute findings. Blood pressures come down to 175/79 Informed patient she is going home. She started taking to stay in the hospital. Informed patient today she does not meet criteria for admission. I recommended she follows up with her own PCP. (DESMOND CARSON APRN) Dragon Disclaimer Dragon Disclaimer This electronic medical record was generated, in whole or in part, using a voice recognition dictation system. (DESMOND CARSON APRN) Departure Departure Impression: Primary Impression: HTN (hypertension) Additional Impression: Head ache Disposition: HOME, SELF-CARE Condition: STABLE Referrals: JENSEN CUEVAS (PCP) follow up next week Patient Instructions: Hypertension Additional Instructions: You were seen in the emergency room, your workup was negative for any acute findings including CT of the head and labs. Please follow-up with your doctor next week Problem Qualifiers Primary Impression: HTN (hypertension) Hypertension type: unspecified Qualified Codes: I10 - Essential (primary) hypertension Additional Impression: Head ache Headache type: unspecified Headache chronicity pattern: acute headache Intractability: not intractable Qualified Codes: R51 - Headache ALLIDESMOND CARPENTER Apr 03, 2019 17:28 RFAN WHITMORE MD Apr 03, 2019 20:26
[2019-04-03 17:37] LABS: CALCIUM 10.7 mg/dL (8.5-10.1); CREATININE 0.7 mg/dL (0.6-1.0); GFR 101.6; POTASSIUM 4.1 mmol/L (3.5-5.1)
[2019-04-03 17:47] LABS: ALBUMIN 3.8 g/dL (3.4-5.0); ALBUMIN/GLOBULIN RATIO 0.8 (1.0-1.7); MAGNESIUM 2.3 mg/dL (1.8-2.4); TOTAL BILIRUBIN 0.6 mg/dL (0.2-1.0); TOTAL PROTEIN 8.6 g/dL (6.4-8.2)
[2019-04-03 17:52] LABS: CREATINE KINASE 50 U/L (26-192)
[2019-04-03 18:03] LABS: INFLUENZA A PATIENT NEGATIVE (NEGATIVE); INFLUENZA B PATIENT NEGATIVE (NEGATIVE)
--- NOTE | 2019-04-03 18:18 | RAD ---
CT HEAD WO CONTRAST History: Headache. High blood pressure. Comparison: February 02, 2019 Technique: Noncontrast CT imaging was performed of the head. Exposure: One or more of the following individualized dose reduction techniques were utilized for this examination: 1. Automated exposure control 2. Adjustment of the mA and/or kV according to patient size 3. Use of iterative reconstruction technique. Findings: No intracranial hemorrhage. No mass effect. No hydrocephalus. Mild foci of decreased attenuation within the hemispheric white matter, most often due to chronic microvascular ischemia. Imaged orbits are unremarkable. Imaged paranasal sinuses and mastoid air cells are clear. Impression: 1. No acute intracranial abnormality. Electronically signed by: Jaydon Machado DO (04/03/2019 6:15 PM) [id number]
[2019-04-03 18:30] VITALS: BP 175/79
[2019-04-03] MEDS ORDERED: MORPHINE SULFATE 10 MG/ML VIAL. IV ONE (19:00)
--- NOTE | 2019-04-05 08:31 | EKG ---
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
== END 2019-04-03 19:14 | disposition home or self-care (01) ==
LOC: ER 17:01
DX: I11.0 Hypertensive heart disease with heart failure (principal); I50.9 Heart failure, unspecified; R51 Headache; M54.2 Cervicalgia; R11.0 Nausea; E11.40 Type 2 diabetes mellitus with diabetic neuropathy, unspecified; J44.9 Chronic obstructive pulmonary disease, unspecified; E78.00 Pure hypercholesterolemia, unspecified; G89.29 Other chronic pain; I25.2 Old myocardial infarction; Z90.49 Acquired absence of other specified parts of digestive tract; Z90.710 Acquired absence of both cervix and uterus; Z95.1 Presence of aortocoronary bypass graft; Z98.890 Other specified postprocedural states
CPT/HCPCS: 36415; 70450; 80053; 82553; 83735; 83880; 84484; 85025; 87804; 93005; 96374; 96375; 99285; J1885; J2270; J2405; J3490

== ENCOUNTER → 2019-05-05 | Outpatient (CLI) | payer MEDICARE ==
[2019-05-03 15:09] VITALS: BP 143/71
[~2019-05-05] MED LIST changes: -FLUO20CA19 PO; +FLUO20CA20 PO; +ZOLP5TAB PO; +ZOLPIDEM 5 MG TABLET. PO ONE
--- NOTE | 2019-05-06 11:12 | SLEEP ---
DATE OF STUDY: SLEEP STUDY REFERRING PHYSICIAN: Lynn Ortega MD The patient is 64-year-old who weighs 229 pounds with a BMI of 34. The patient had sleep study about 5 years ago and was positive for VIOLETTA, but she was unable to tolerate CPAP. The patient uses oxygen at 2-3 liters at home. Another split night study was performed on room air. During the night study, the patient spent 419 minutes in bed and slept for 365 minutes with a sleep efficiency of 87%. Sleep latency was 37 minutes with a REM latency of 139 minutes. Sleep architecture showed normal stage 1 sleep, increased stage 2 sleep, normal slow wave and reduced REM sleep. During the initial diagnostic portion of the study, the patient slept for 90 minutes. During that time, there were 3 obstructive apneas, 6 mixed apneas, 2 central apnea and 43 hypopneas. The patient's apnea hypopnea index was 36 per hour with a supine index of 36 per hour. REM sleep was not seen during the diagnostic portion. EKG monitoring revealed a mean heart rate of 61 beats per minute, no sustained arrhythmias observed. Nocturnal oximetry study revealed a mean oxygen saturation 98% with the lowest of 55%. 45% of the time oxygen saturation remained between 70% and 79% and 30% of time between 60% and 69%. PLMS were seen at index of 7 per hour and 1 per hour caused EEG arousals. The patient was started on CPAP at a pressure of 5 cm water and titrated up to 20 cm of water. At the final pressure of CPAP of 20 cm water, the patient's AHI was still high at 63 per hour. The patient was switched to BiPAP at a pressure of 25/20. At that final pressure, the patient slept for 97 minutes. The patient had supine sleep throughout. No REM sleep observed. The patient's AHI was reduced to 3 per hour. Oxygen saturations, however, did remain in the low 80s to high 70s. The patient uses oxygen 2-3 liters at night, but this study was performed on room air. The patient used small size full face mask. IMPRESSION: 1. Severe sleep apnea-hypopnea syndrome at an AHI of 36 per hour. 2. Nocturnal hypoxia secondary to combination of sleep apnea and hypoventilation. Hypoxia persisted at the final pressure despite elimination of all respiratory events. No clinically significant periodic limb movements. RECOMMENDATIONS: 1. BiPAP at a pressure of 25/20 with 3 liters of oxygen should be used on a nightly basis. 2. Follow up in 4-6 weeks to assess compliance with BiPAP and to document clinical improvement. 3. Weight loss is strongly advised. 4. Avoid [employer] depressants. 5. Cautioned regarding driving until symptoms of sleep apnea resolved with the use of BiPAP. 6. The patient used a small size full face mask. XENIA MARAVILLA MD DR: CAS/amrik JOB#: [id number] / [id number] LYNN Lozano MD MTDD
== END | disposition home or self-care (01) ==
LOC: SLPLAB 19:29
PROVIDERS: ATTEND Internal Medicine Pulmonary Disease
DX: G47.33 Obstructive sleep apnea (adult) (pediatric) (principal); R09.02 Hypoxemia
CPT/HCPCS: 95810

== ENCOUNTER 2019-11-09 13:37 | Inpatient (IN) | payer MEDICARE, MEDICAID ==
[~2019-11-09] VITALS: Ht 162.6 cm; Wt 107.2 kg
[~2019-11-09 13:37] MED LIST changes: +CARV25TA2 PO; +CLONAZEPAM1 MG PO; +EMPA10TA PO; +FLUT1DIS3 IH; +HYDR-2869 PO; +ISOS60TA2 PO; +OXYC-325 PO; +SITA50TA PO; -ZOLPIDEM 5 MG TABLET. PO ONE
[2019-11-09] MEDS ORDERED: ASPIRIN 325 MG TABLET PO ONE (14:00)
[2019-11-09] MEDS ORDERED: ONDANSETRON PF 4 MG/2 ML VIAL. IVP ONE (14:00)
[2019-11-09] MEDS ORDERED: ALBUTEROL SULFATE 2.5 MG/3 ML NEBU. NEB ONE (14:00)
[2019-11-09] MEDS ORDERED: fentaNYL PF VIAL 100 MCG/2 ML VIAL IVP ONE (14:00)
--- NOTE | 2019-11-09 14:10 | PHYS DOC ---
Past Medical History Past Medical History: CHF, COPD, Diabetes-Type II Additional Past Medical Histor: O2 @3 L PRN, chronic pain, NEUROPATHY Past Surgical History: Other Additional Past Surgical Histo: HERNIA REPAIR, CABG X 2 VESSELS Smoking Status: Former Smoker Alcohol Use: None Drug Use: None General Adult EDM: Chief Complaint: CHEST PAIN HPI: HPI: Patient is a 64 year old female who presents with Friday she states she has been having increased shortness of breath so she when she is up and moving she begins wheezing. She states that she feels that she has had increased swelling. She states she is having generalized chest pain that is a pressure type pain. She states she took 1 nitro at home before coming and did not relieve any of her pain. She states she took 1 baby aspirin today. States she is nauseated and did not take the rest of her medications such as her blood pressure medications. She is hypertensive here in the ED. She states she has been taking her Lasix. Patient denies vomiting, fever, and vision changes, headache, dizziness, syncope, fall, abdominal pain, dysuria symptoms, diarrhea. She has a history of CHF, COPD, diabetes, neuropathy, chronic pain, CABG x2. She is a former smoker. She rates her discomfort 8 out of 10. Review of Systems: Review of Systems: Constitutional: Denies fever or chills. [] Eyes: Denies change in visual acuity. [] HENT: Denies nasal congestion or sore throat. [] Respiratory: cough or shortness of breath. [] Cardiovascular: chest pain and pressure or edema. [] GI: Denies abdominal pain. + nausea, denies vomiting, bloody stools or diarrhea. [] : Denies dysuria. [] Musculoskeletal: Denies back pain or joint pain. [] Integument: Denies rash. [] Neurologic: Denies headache, focal weakness or sensory changes. [] Endocrine: Denies polyuria or polydipsia. [] Lymphatic: Denies swollen glands. [] Psychiatric: Denies depression or anxiety. [] Heart Score: HEART Score for Chest Pain: HEART Score for Chest Pain Response (Comments) Value History Moderately Suspicious 1 ECG Nonspecific Repolarizatio 1 Age > 65 2 Risk Factors >3 Risk Factors or Hx CAD 2 Troponin < Normal Limit 0 Total 6 Risk Factors: Risk Factors: DM, Current or recent (<one month) smoker, HTN, HLP, family history of CAD, obesity. Risk Scores: Score 0 - 3: 2.5% MACE over next 6 weeks - Discharge Home Score 4 - 6: 20.3% MACE over next 6 weeks - Admit for Clinical Observation Score 7 - 10: 72.7% MACE over next 6 weeks - Early Invasive Strategies Allergies: Allergies: Allergies Coded Allergies Type Severity Reaction Last Updated Verified No Known Drug Allergies 03/13/19 No Physical Exam: PE: Constitutional: Well developed, well nourished, no acute distress, non-toxic appearance. [] HENT: Normocephalic, atraumatic, bilateral external ears normal, oropharynx moist, no oral exudates, nose normal. [] Eyes: PERRLA, EOMI, conjunctiva normal, no discharge. [] Neck: Normal range of motion, no tenderness, supple, no stridor. [] Cardiovascular:Heart rate regular rhythm, no murmur [] Lungs & Thorax: upper Bilateral breath sounds clear and lower diminished to auscultation. Wheezing when up and moving. [] Abdomen: Bowel sounds normal, soft, no tenderness, no masses, no pulsatile masses. [] Skin: Warm, dry, no erythema, no rash. [] Back: No tenderness, no CVA tenderness. [] Extremities: No tenderness, no cyanosis, no clubbing, ROM intact, no edema. [] Neurologic: Alert and oriented X 3, normal motor function, normal sensory function, no focal deficits noted. [] Psychologic: Affect normal, judgement normal, mood normal. [] EKG: EK and read by Dr. Eisenberg as sinus rhythm, nonspecific intraventricular block, RVH with early polarization, no STEMI [] Radiology/Procedures: Radiology/Procedures: [] Impression: [facility] [address] [place], [place] [id number] IMAGING REPORT Signed PATIENT: GRETCHEN BONILLA EACCOUNT: [id number] : 1955 LOCATION: ER AGE: 64 SEX: F EXAM STATUS: REG ER ORD. PHYSICIAN: LUIS A KING APRN REASON: chest pain PROCEDURE: PORTABLE CHEST 1V EXAM: CHEST 1 VIEW History: Chest pain COMPARISON: 10/09/2019 TECHNIQUE: Single portable radiograph of the chest FINDINGS: Moderate cardiomegaly is unchanged. Left-sided cardiac pacer is identified. Mild bibasilar lung airspace opacities likely atelectasis or infiltrates. Minimal prominent bilateral interstitial lung markings. IMPRESSION: 1. Mild congestive changes with bibasilar lung airspace opacities likely atelectasis or infiltrates. Electronically signed by: Carlito Irwin MD (11/09/2019 2:22 PM) [id number] DICTATED and SIGNED BY: CARLITO IRWIN MD DATE: 11/09/19 1422 Course & Med Decision Making: Course & Med Decision Making Pertinent Labs and Imaging studies reviewed. (See chart for details) COVID-19 CRITERIA: The patient was evaluated during the global COVID-19 pandemic, and that diagnosis was suspected/considered upon their initial presentation. Their evaluation, treatment and testing was consistent with current guidelines for patients who present with complaints or symptoms that may be related to COVID-19. See HPI. No extremity swelling. Skin pink warm and dry. Chest pain is non- reproducible. Lungs are clear in upper lobes with diminished in lower lobes. Nursing staff states that when she was up and moving in the room when they first got her back she was wheezing audibly. Now that the patient is sitting still she is moving her wheezing. Patient states she did not take any of her blood pressure medications today and her blood pressures in the 220s. Given 80 mg of Lasix. Patient admitted to Dr. Keen for a CHF exacerbation. I have spoken to Dr. Eisenberg concerning this patient and the care plan. [] Hakeem Disclaimer: Hakeem Disclaimer: This electronic medical record was generated, in whole or in part, using a voice recognition dictation system. COVID-19 Patient Risks: Age 65 or older: Yes Sign of co-morbidity: Yes Exp to person + for COVID: No Exp to PUI: No Travel from affected area: No Lower respiratory symptoms: Yes Fever: No Other: No PPE Use: Full PPE with N95 mask or PAPR: Yes Departure Departure Impression: Primary Impression: CHF exacerbation Qualified Codes: I50.9 - Heart failure, unspecified Disposition: ADMITTED INPATIENT Admitting Physician: MAGNUS Condition: STABLE Referrals: JENSEN CUEVAS (PCP) Justicifation of Admission Dx: Justifications for Admission: Justification of Admission Dx: Yes Comments: CHF EXACERBATION LUIS A KING JACKET CHANGER Nov 09, 2019 14:09
[2019-11-09 14:18] LABS: BASO % 1 % (0-3); EOS % 0 % (0-3); HEMATOCRIT 28.7 % (36.0-47.0); HEMOGLOBIN 8.7 g/dL (12.0-15.5); LYMPH # 0.7 x10^3/uL (1.0-4.8); LYMPH % 7 % (24-48); MEAN CORPUSCULAR HEMOGLOBIN 23 pg (25-35); MEAN CORPUSCULAR HGB CONC 30 g/dL (31-37); MEAN CORPUSCULAR VOLUME 75 fL (79-100); MONO # 0.6 x10^3/uL (0.0-1.1); MONO % 6 % (0-9); NEUT # 8.4 x10^3/uL (1.8-7.7); NEUT % 86 % (31-73); PLATELET COUNT 311 x10^3/uL (140-400); RED BLOOD COUNT 3.81 x10^6/uL (3.50-5.40); RED CELL DISTRIBUTION WIDTH 18.2 % (11.5-14.5); WHITE BLOOD COUNT 9.7 x10^3/uL (4.0-11.0)
[2019-11-09 14:22] LABS: BILIRUBIN,URINE NEGATIVE (NEG); CLARITY,URINE CLEAR; COLOR,URINE YELLOW; NITRITE,URINE NEGATIVE (NEG); PROTEIN,URINE 100 mg/dL (NEG-TRACE)
--- NOTE | 2019-11-09 14:25 | RAD ---
EXAM: CHEST 1 VIEW History: Chest pain COMPARISON: 10/09/2019 TECHNIQUE: Single portable radiograph of the chest FINDINGS: Moderate cardiomegaly is unchanged. Left-sided cardiac pacer is identified. Mild bibasilar lung airspace opacities likely atelectasis or infiltrates. Minimal prominent bilateral interstitial lung markings. IMPRESSION: 1. Mild congestive changes with bibasilar lung airspace opacities likely atelectasis or infiltrates. Electronically signed by: Carlito Irwin MD (11/09/2019 2:22 PM) [id number]
[2019-11-09 14:26] LABS: PROTHROMBIN TIME PATIENT 14.3 SEC (11.7-14.0)
[2019-11-09 14:37] LABS: BACTERIA,URINE FEW /HPF (0-FEW); RBC,URINE 0 /HPF (0-2); SQUAMOUS EPITHELIAL CELL,UR MOD /LPF; WBC,URINE OCC /HPF (0-4)
[2019-11-09 14:44] LABS: BARBITURATES NEG (NEG); BENZODIAZEPINES NEG (NEG); CANNABINOIDS NEG (NEG); COCAINE NEG (NEG); METHADONE NEG (NEG); OPIATES POS (NEG); PHENCYCLIDINE NEG (NEG)
[2019-11-09 14:46] LABS: CALCIUM 9.5 mg/dL (8.5-10.1); CREATININE 0.8 mg/dL (0.6-1.0); GFR 87.1; POTASSIUM 4.1 mmol/L (3.5-5.1)
[2019-11-09 14:49] LABS: ALBUMIN 3.5 g/dL (3.4-5.0); ALBUMIN/GLOBULIN RATIO 0.9 (1.0-1.7); MAGNESIUM 2.2 mg/dL (1.8-2.4); TOTAL BILIRUBIN 0.6 mg/dL (0.2-1.0); TOTAL PROTEIN 7.6 g/dL (6.4-8.2)
[2019-11-09 14:50] LABS: AMPHETAMINE/METHAMPHETAMINE NEG (NEG)
--- NOTE | 2019-11-09 15:02 | EKG ---
[facility] [address] [place] [address] Test Date: 2019-11-09 Test Time: 13:48:40 Pat Name: GRETCHEN BONILLA Department: Room: Gender: F Registered Nurse Maternity: : 1955 Requested By: LUIS A KING Order Number: [id number] Reading MD: Salvador Maldonado MD Measurements Intervals [place] Rate: 83 P: -90 TN: 116 QRS: -131 QRSD: 140 T: 72 QT: 402 QTc: 479 Interpretive Statements SINUS RHYTHM BI-V PACING Electronically Signed On 11-11-2019 13:47:29 CDT by Salvador Maldonado MD
[2019-11-09 15:16] LABS: BASE EXCESS COOX 6 mmol/L (-3-3); HCO3 COOX 33 mmol/L (21-28); METHEMOGLOBIN 0.1 % (0.0-1.9); OXYHEMOGLOBIN 95.6 %; PO2 COOX 95 mmHg (65-108); SAT O2 COOX 96 % (92-99)
[2019-11-09 15:17] LABS: PCO2 COOX 61 mmHg (35-46)
[2019-11-09 15:27] LABS: % BANDS 1 % (0-9); % LYMPHS 3 % (24-48); % MONOS 3 % (0-10); % SEGS 93 % (35-66); ANISOCYTOSIS SLIGHT; MICROCYTOSIS SLIGHT; OVALOCYTES FEW; PLT ESTIMATE ADEQUATE (ADEQUATE); POIKILOCYTOSIS SLIGHT
[2019-11-09 15:28] LABS: HYPOCHROMIA MOD
[2019-11-09] MEDS ORDERED: FUROSEMIDE 40 MG/4 ML VIAL. IVP ONE (15:30)
[2019-11-09] MEDS ORDERED: IPRATRPIUM/ALBUTEROL 0.5/2.5MG 3 ML NEBU. NEB SCH (16:00)
[2019-11-09] MEDS ORDERED: ONDANSETRON PF 4 MG/2 ML VIAL. IV PRN (16:00)
[2019-11-09] MEDS ORDERED: MORPHINE SULFATE 2 MG/ML VIAL. IV ONE (16:30)
[2019-11-09] MEDS ORDERED: MORPHINE SULFATE 2 MG/ML VIAL. ONE (16:31)
[2019-11-09] MEDS ORDERED: ALBUTEROL SULFATE 2.5 MG/3 ML NEBU. NEB PRN (17:00)
[2019-11-09] MEDS ORDERED: NITROGLYCERIN SUBLINGUAL 0.4 MG BOTTLE OF 25. SL PRN (19:45)
[2019-11-09 20:00] VITALS: BP 161/69
[2019-11-09] MEDS: ALBUTEROL SULFATE 2.5 MG/3 ML NEBU. NEB SCH (20:37)
[2019-11-09] MEDS: BUDESONIDE 0.5 MG/2 ML NEBU. NEB SCH (20:40)
[2019-11-09] MEDS: DOCUSATE SODIUM 100 MG CAPSULE. PO SCH (20:57)
[2019-11-09] MEDS: CAPSAICIN 0.025% TOPICAL CREAM 60GM TUBE. TP SCH (20:57)
[2019-11-09] MEDS: oxyCODONE/APAP 5/325 1 TAB TABLET PO PRN (20:58)
[2019-11-09] MEDS: ATORVASTATIN CALCIUM 20 MG TABLET PO SCH (20:58)
[2019-11-09] MEDS ORDERED: NON FORMULARY ITEM (Fluticasone/Salmeterol (Advair 250-50 Diskus) 1 PUFF) IH SCH (21:00)
[2019-11-09] MEDS: ZOLPIDEM 5 MG TABLET. PO PRN (21:18)
[2019-11-09 23:07] VITALS: BP 131/60
[2019-11-10] MEDS: ALBUTEROL SULFATE 2.5 MG/3 ML NEBU. NEB SCH ×3 (00:14→13:08)
--- NOTE | 2019-11-10 00:31 | HP ---
ADMIT DATE: 11/09/2019 CHIEF COMPLAINT: Chest pain. HISTORY OF PRESENT ILLNESS: The patient is a pleasant middle-aged -[place] female well known to my service, we admit her several times a year. Once again, she presents with recurrent chest pain. She does have known coronary artery disease. Rates her pain at 9/10. She has associated facial swelling. Her daughter has been telling her that she looks bloated, discussed the case with ER physician. We are going to admit the patient and consult Cardiology. PAST MEDICAL HISTORY: CAD, CHF, hypertension, hyperlipidemia, diabetes, noncompliance, narcotic dependence. ALLERGIES: None. FAMILY HISTORY: Diabetes. SOCIAL HISTORY: She does not drink, smoke or take drugs. She lives with her granddaughter. MEDICATIONS: Reviewed, please refer to the MRAD. REVIEW OF SYSTEMS: GENERAL: No history of weight change, weakness or fevers. SKIN: No bruising, hair changes or rashes. EYES: No blurred, double or loss of vision. NOSE AND THROAT: No history of nosebleeds, hoarseness or sore throat. CARDIAC: She complains of chest pain. PULMONARY: She complains of slight shortness of breath. GASTROINTESTINAL: Denies changes in appetite, nausea, vomiting, diarrhea or constipation. GENITOURINARY: No history of frequency, urgency, hesitancy or nocturia. NEUROLOGIC: Denies history of numbness, tingling, tremor or weakness. PSYCHIATRIC: No history of panic, anxiety or depression. ENDOCRINE: No history of heat or cold intolerance, polyuria or polydipsia. EXTREMITIES: Denies muscle weakness, joint pain, pain on walking or stiffness. HEAD: She complains of facial swelling. PHYSICAL EXAMINATION: VITALS: Within normal limits and are stable. GENERAL: No apparent distress. Alert and oriented. HEENT: Her face is swollen. EYES: Extraocular muscles are intact, pupils are equally round and reactive to light and accommodation MUSCULOSKELETAL: Well developed, well nourished, good range of motion ENDOCRINE: No thyromegaly was palpated LYMPHATICS: No cervical chain or axillary nodes were noted HEMATOPOIETIC: No bruising NECK: Supple, no JVD, no thyromegaly was noted. LUNGS: Clear to auscultation in all lung tripp without rhonchi or wheezing. HEART: RRR, S1, S2 present. Peripheral pulses intact, no obvious murmurs were noted. ABDOMEN: Soft, nontender. Positive bowel sounds no organomegaly, normal bowel sounds. EXTREMITIES: Without any cyanosis, clubbing, or edema. Pedal pulses intact, Homans sign is negative. NEUROLOGIC: Normal speech, normal tone. A & O x3, moves all extremities, no obvious focal deficits. PSYCHIATRIC: Normal affect, normal mood. Stable. SKIN: No ulcerations or rashes, good skin turgor, no jaundice. VASCULAR: Good capillary refill, neurovascular bundle appears to be intact. LABORATORY DATA: Pending. ASSESSMENT AND PLAN: Chest pain, rule out recurrent coronary artery disease. The patient has been admitted. We will check serial enzymes, serial EKGs. Consult Cardiology. Home meds, DVT prophylaxis. Full code. PERICO BUCHANAN DO DR: AHMET/amrik JOB#: [id number] / [id number]
[2019-11-10 03:20] VITALS: BP 133/53
[2019-11-10 07:00] VITALS: BP 150/47
[2019-11-10] MEDS: BUDESONIDE 0.5 MG/2 ML NEBU. NEB SCH ×2 (07:29→19:37)
[2019-11-10] MEDS: DOCUSATE SODIUM 100 MG CAPSULE. PO SCH ×2 (08:57→21:37)
[2019-11-10] MEDS: GLIMEPIRIDE 2 MG TABLET. PO SCH (08:58)
[2019-11-10] MEDS: ASPIRIN ENTERIC COATED 81 MG TABLET.DR. PO SCH (08:58)
[2019-11-10] MEDS: LINAGLIPTIN 5 MG TABLET PO SCH (08:58)
[2019-11-10] MEDS: FERROUS SULFATE 325 MG TABLET. PO SCH (08:59)
[2019-11-10] MEDS: PANTOPRAZOLE 40 MG TABLET.DR. PO SCH (08:59)
[2019-11-10] MEDS: FLUoxetine HCL 20 MG CAPSULE PO SCH (08:59)
[2019-11-10] MEDS: CALCIUM CARB/VIT D3 500/200 TABLET. PO SCH (08:59)
[2019-11-10] MEDS: CLOPIDOGREL BISULFATE 75 MG TABLET PO SCH (08:59)
[2019-11-10] MEDS: EMPAGLIFLOZIN 10 MG PO SCH (09:00)
[2019-11-10] MEDS: FUROSEMIDE 80 MG TABLET. PO SCH ×2 (09:00→13:49)
[2019-11-10] MEDS: amLODIPine BESYLATE 10 MG TABLET PO SCH (09:05)
[2019-11-10] MEDS: CARVEDILOL 6.25 MG TABLET. PO SCH ×2 (09:06→17:29)
[2019-11-10] MEDS: LOSARTAN POTASSIUM 50 MG TABLET. PO SCH (09:07)
[2019-11-10] MEDS: ISOSORBIDE MONONITRATE ER 30 MG TAB.ER.24H PO SCH (09:08)
[2019-11-10] MEDS: CAPSAICIN 0.025% TOPICAL CREAM 60GM TUBE. TP SCH ×3 (09:08→21:38)
--- NOTE | 2019-11-10 09:43 | NUR ---
SS following for discharge planning. SS reviewed pt chart and discussed with pt RN. Pt is from home and is currently requiring oxygen. Pt has home oxygen at home. SS will continue to follow for discharge planning.
[2019-11-10] MEDS: oxyCODONE/APAP 5/325 1 TAB TABLET PO PRN ×2 (10:11→17:29)
[2019-11-10 11:00] VITALS: BP 126/60
--- NOTE | 2019-11-10 13:43 | PDOC ---
REDDY MARTINEZ DESIGN DRAFTSMAN 11/10/19 1343: CARDIO Progress Notes Date and Time Date of Service 11/10/2019 Time of Evaluation 1000 Subjective Subjective: No Chest Pain, No Palpitations, Other (SOA better) Vitals Vitals Vital Signs Date Time Temp Pulse Resp B/P (MAP) Pulse Ox O2 Delivery O2 Flow Rate FiO2 11/10/19 13:08 97 Nasal Cannula 2.0 11/10/19 11:00 98.2 75 20 126/60 (82) 98.2 Weight Weight [ ] Input and Output Intake and Output Intake and Output 11/10/19 07:00 Intake Total 480 ml Output Total 1300 ml Balance -820 ml Intake Oral 480 ml Output Urine Total 1300 ml # Voids 1 Laboratory Labs Laboratory Tests Test 11/09/19 14:10 11/09/19 15:00 11/09/19 16:37 11/09/19 20:10 White Blood Count 9.7 x10^3/uL (4.0-11.0) Red Blood Count 3.81 x10^6/uL (3.50-5.40) Hemoglobin 8.7 g/dL (12.0-15.5) Hematocrit 28.7 % (36.0-47.0) Mean Corpuscular Volume 75 fL (79-100) Mean Corpuscular Hemoglobin 23 pg (25-35) Mean Corpuscular Hemoglobin Concent 30 g/dL (31-37) Red Cell Distribution Width 18.2 % (11.5-14.5) Platelet Count 311 x10^3/uL (140-400) Neutrophils (%) (Auto) 86 % (31-73) Lymphocytes (%) (Auto) 7 % (24-48) Monocytes (%) (Auto) 6 % (0-9) Eosinophils (%) (Auto) 0 % (0-3) Basophils (%) (Auto) 1 % (0-3) Neutrophils # (Auto) 8.4 x10^3/uL (1.8-7.7) Lymphocytes # (Auto) 0.7 x10^3/uL (1.0-4.8) Monocytes # (Auto) 0.6 x10^3/uL (0.0-1.1) Eosinophils # (Auto) 0.0 x10^3/uL (0.0-0.7) Basophils # (Auto) 0.0 x10^3/uL (0.0-0.2) Segmented Neutrophils % 93 % (35-66) Band Neutrophils % 1 % (0-9) Lymphocytes % 3 % (24-48) Monocytes % 3 % (0-10) Platelet Estimate Adequate (ADEQUATE) Hypochromasia Mod Poikilocytosis Slight Anisocytosis Slight Microcytosis Slight Ovalocytes Few Prothrombin Time 14.3 SEC (11.7-14.0) Prothromb Time International Ratio 1.2 (0.8-1.1) Urine Collection Type Unknown Urine Color Yellow Urine Clarity Clear Urine pH 7.0 (<5.0-8.0) Urine Specific [place] 1.015 (1.000-1.030) Urine Protein 100 mg/dL (NEG-TRACE) Urine Glucose (UA) >=1000 mg/dL (NEG) Urine Ketones (Stick) Trace mg/dL (NEG) Urine Blood Negative (NEG) Urine Nitrite Negative (NEG) Urine Bilirubin Negative (NEG) Urine Urobilinogen Dipstick 1.0 mg/dL (0.2 mg/dL) Urine Leukocyte Esterase Negative (NEG) Urine RBC 0 /HPF (0-2) Urine WBC Occ /HPF (0-4) Urine Squamous Epithelial Cells Mod /LPF Urine Bacteria Few /HPF (0-FEW) Sodium Level 142 mmol/L (136-145) Potassium Level 4.1 mmol/L (3.5-5.1) Chloride Level 100 mmol/L (98-107) Carbon Dioxide Level 38 mmol/L (21-32) Anion Gap 4 (6-14) Blood Urea Nitrogen 9 mg/dL (7-20) Creatinine 0.8 mg/dL (0.6-1.0) Estimated GFR (Cockcroft-Gault) 87.1 BUN/Creatinine Ratio 11 (6-20) Glucose Level 89 mg/dL (70-99) Lactic Acid Level 1.6 mmol/L (0.4-2.0) Calcium Level 9.5 mg/dL (8.5-10.1) Magnesium Level 2.2 mg/dL (1.8-2.4) Total Bilirubin 0.6 mg/dL (0.2-1.0) Aspartate Amino Transf (AST/SGOT) 15 U/L (15-37) Alanine Aminotransferase (ALT/SGPT) 19 U/L (14-59) Alkaline Phosphatase 103 U/L (46-116) Troponin I Quantitative 0.027 ng/mL (0.000-0.055) 0.038 ng/mL (0.000-0.055) 0.022 ng/mL (0.000-0.055) UF-Iuq-J-Type Natriuretic Peptide 6711 pg/mL (0-124) Total Protein 7.6 g/dL (6.4-8.2) Albumin 3.5 g/dL (3.4-5.0) Albumin/Globulin Ratio 0.9 (1.0-1.7) Urine Opiates Screen Pos (NEG) Urine Methadone Screen Neg (NEG) Urine Barbiturates Neg (NEG) Urine Phencyclidine Screen Neg (NEG) Urine Amphetamine/Methamphetamine Neg (NEG) Urine Benzodiazepines Screen Neg (NEG) Urine Cocaine Screen Neg (NEG) Urine Cannabinoids Screen Neg (NEG) Urine Ethyl Alcohol Neg (NEG) O2 Saturation 96 % (92-99) Arterial Blood pH 7.35 (7.35-7.45) Arterial Blood pCO2 at Patient Temp 61 mmHg (35-46) Arterial Blood pO2 at Patient Temp 95 mmHg (65-108) Arterial Blood HCO3 33 mmol/L (21-28) Arterial Blood Base Excess 6 mmol/L (-3-3) Oxyhemoglobin 95.6 % Methemoglobin 0.1 % (0.0-1.9) Carbon Monoxide, Quantitative 0.6 % (0.0-1.9) FiO2 32 Test 11/09/19 22:32 11/10/19 08:22 11/10/19 11:37 Glucose (Fingerstick) 141 mg/dL (70-99) 102 mg/dL (70-99) 151 mg/dL (70-99) Physical Exam HEENT: Neck Supple W Full Motion Chest: Symmetric LUNGS: Other (dimnished bases) Heart: RRR (paced) Abdomen: Soft N/T, Other (obese) Extremities: Other (trace LE edema) Neurology: alert, oriented, follow commands Assessment Assessment HPI: This is a pleasant 64 yo female admitted for complains of SOA. Reports that this started on Friday and got worse in the last 2 days with orthopnea. but negative for PND. Intermittent leg swelling. Her chest pain to left is reproducible. No palpitations. Sometimes feels like chest is pounding. She has not been using her CPAP consistently and has not been checking her BP since she does not have a machine. Verbalized compliance with her medications and actually has a cardiac MRI in early and suppose to follow up with Dr. Pozo her dock associate afterwards. 1. Acute on chronic diastolic CHF: notable for severe LVH and pulmonary HTN, now compensated 2. Secondary cor pulmonale 3. Atypical CP: likely from high BP 4. CAD s/p CABG. Cardiac catheterization 04/2018 without any lesions needing intervention. Follows with MAC, Dr. Pozo. 5. HTN urgency: SBP in the 220s, much better after resumption of BP meds. 6. SSS/PPM in situ: paced rhythm 7. Hyperlipidemia 8. Diabetes, II 9. VIOLETTA, morbid obesity: CPAP noncompliant Recommendations 1. Continue lasix therapy. Appears compensated. Clinically CAD is stable. What is inducing her CHF is her uncontrolled HTN as she does not do any BP readings at home since she does not have a machine, Also she has VIOLETTA and has not been wearing it consistently. Discussed compliance and HBPM. Will likely need to rule out any amyloidosis issue. She will have a cardiac MRI in and will defer further with her [facility] dock associate Dr. Pozo as far as amyloidosis workup. 2. Secondary prevention measures. ASA/Plavix. Continue current BP regimen 3. Follow up with primary dock associate, Dr. Pozo upon discharge 5. Discussed diet compliance. Justicifation of Admission Dx: Justifications for Admission: Justification of Admission Dx: Yes MISBAH HUFFMAN MD 11/10/19 1348: CARDIO Progress Notes Assessment Assessment Patient seen and examined. Agree with PAGE DESIGNER's assessment and plan. Acute on chronic diastolic heart failure better compensated. Blood pressure better controlled after resuming home antihypertensives. Importance of compliance with medications reemphasized. Patient currently being worked up for cardiac amyloidosis with primary dock associate. SSS s/p PPM clinically stable. Thank you for your consultation REDDY MARTINEZ APRN Nov 10, 2019 13:43 MISBAH HUFFMAN MD Nov 10, 2019 13:48
[2019-11-10 15:00] VITALS: BP 126/59
--- NOTE | 2019-11-10 15:24 | PDOC ---
PROGRESS NOTES Date of Service: DATE: 11/10/19 TIME: 15:21 Chief Complaint Chief Complaint Acute on chronic diastolic congestive heart failure Core pulmonary Atypical chest pain Morbid obesity Obstructive sleep apnea on CPAP and poor poor compliance Essential hypertension History of coronary artery disease status post CABG recent cardiac catheterization in April 2018 Atypical chest pain most likely secondary to hypertensive urgency Plan Continue with diuresis We will start DuoNeb Solu-Medrol Reassess in the Further recommendations will be based on the clinical course Recommendations from computing consultant greatly appreciated and are as follows Recommendations 1. Continue lasix therapy. Appears compensated. Clinically CAD is stable. What is inducing her CHF is her uncontrolled HTN as she does not do any BP readings at home since she does not have a machine, Also she has VIOLETTA and has not been wearing it consistently. Discussed compliance and HBPM. Will likely need to rule out any amyloidosis issue. She will have a cardiac MRI in Nov. and will defer further with her [employer] systems checkout mechanic Dr. Pozo as far as amyloidosis workup. 2. Secondary prevention measures. ASA/Plavix. Continue current BP regimen 3. Follow up with primary systems checkout mechanic, Dr. Pozo upon discharge 5. Discussed diet compliance. History of Present Illness History of Present Illness No acute events reported overnight, case discussed with nursing staff patient in no acute distress no complaints during my visit patient continues to have dyspnea, plan of care explained detail Vitals Vitals Vital Signs Date Time Temp Pulse Resp B/P (MAP) Pulse Ox O2 Delivery O2 Flow Rate FiO2 11/10/19 13:49 75 126/60 11/10/19 13:08 97 Nasal Cannula 2.0 11/10/19 11:00 98.2 20 98.2 Physical Exam Physical Exam Physical Exam HEENT: Neck Supple W Full Motion Chest: Symmetric LUNGS: Other (dimnished bases) Heart: RRR (paced) Abdomen: Soft N/T, Other (obese) Extremities: Other (trace LE edema) Neurology: alert, oriented, follow commands Lungs: Clear Labs LABS Laboratory Tests Test 11/09/19 16:37 11/09/19 20:10 11/09/19 22:32 11/10/19 08:22 Troponin I Quantitative 0.038 ng/mL (0.000-0.055) 0.022 ng/mL (0.000-0.055) Glucose (Fingerstick) 141 mg/dL (70-99) 102 mg/dL (70-99) Test 11/10/19 11:37 Glucose (Fingerstick) 151 mg/dL (70-99) Comment Review of Relevant I have reviewed the following items nolan (where applicable) has been applied. Labs Laboratory Tests Test 11/09/19 14:10 11/09/19 15:00 11/09/19 16:37 11/09/19 20:10 White Blood Count 9.7 x10^3/uL (4.0-11.0) Red Blood Count 3.81 x10^6/uL (3.50-5.40) Hemoglobin 8.7 g/dL (12.0-15.5) Hematocrit 28.7 % (36.0-47.0) Mean Corpuscular Volume 75 fL (79-100) Mean Corpuscular Hemoglobin 23 pg (25-35) Mean Corpuscular Hemoglobin Concent 30 g/dL (31-37) Red Cell Distribution Width 18.2 % (11.5-14.5) Platelet Count 311 x10^3/uL (140-400) Neutrophils (%) (Auto) 86 % (31-73) Lymphocytes (%) (Auto) 7 % (24-48) Monocytes (%) (Auto) 6 % (0-9) Eosinophils (%) (Auto) 0 % (0-3) Basophils (%) (Auto) 1 % (0-3) Neutrophils # (Auto) 8.4 x10^3/uL (1.8-7.7) Lymphocytes # (Auto) 0.7 x10^3/uL (1.0-4.8) Monocytes # (Auto) 0.6 x10^3/uL (0.0-1.1) Eosinophils # (Auto) 0.0 x10^3/uL (0.0-0.7) Basophils # (Auto) 0.0 x10^3/uL (0.0-0.2) Segmented Neutrophils % 93 % (35-66) Band Neutrophils % 1 % (0-9) Lymphocytes % 3 % (24-48) Monocytes % 3 % (0-10) Platelet Estimate Adequate (ADEQUATE) Hypochromasia Mod Poikilocytosis Slight Anisocytosis Slight Microcytosis Slight Ovalocytes Few Prothrombin Time 14.3 SEC (11.7-14.0) Prothromb Time International Ratio 1.2 (0.8-1.1) Urine Collection Type Unknown Urine Color Yellow Urine Clarity Clear Urine pH 7.0 (<5.0-8.0) Urine Specific [place] 1.015 (1.000-1.030) Urine Protein 100 mg/dL (NEG-TRACE) Urine Glucose (UA) >=1000 mg/dL (NEG) Urine Ketones (Stick) Trace mg/dL (NEG) Urine Blood Negative (NEG) Urine Nitrite Negative (NEG) Urine Bilirubin Negative (NEG) Urine Urobilinogen Dipstick 1.0 mg/dL (0.2 mg/dL) Urine Leukocyte Esterase Negative (NEG) Urine RBC 0 /HPF (0-2) Urine WBC Occ /HPF (0-4) Urine Squamous Epithelial Cells Mod /LPF Urine Bacteria Few /HPF (0-FEW) Sodium Level 142 mmol/L (136-145) Potassium Level 4.1 mmol/L (3.5-5.1) Chloride Level 100 mmol/L (98-107) Carbon Dioxide Level 38 mmol/L (21-32) Anion Gap 4 (6-14) Blood Urea Nitrogen 9 mg/dL (7-20) Creatinine 0.8 mg/dL (0.6-1.0) Estimated GFR (Cockcroft-Gault) 87.1 BUN/Creatinine Ratio 11 (6-20) Glucose Level 89 mg/dL (70-99) Lactic Acid Level 1.6 mmol/L (0.4-2.0) Calcium Level 9.5 mg/dL (8.5-10.1) Magnesium Level 2.2 mg/dL (1.8-2.4) Total Bilirubin 0.6 mg/dL (0.2-1.0) Aspartate Amino Transf (AST/SGOT) 15 U/L (15-37) Alanine Aminotransferase (ALT/SGPT) 19 U/L (14-59) Alkaline Phosphatase 103 U/L (46-116) Troponin I Quantitative 0.027 ng/mL (0.000-0.055) 0.038 ng/mL (0.000-0.055) 0.022 ng/mL (0.000-0.055) TM-Yky-G-Type Natriuretic Peptide 6711 pg/mL (0-124) Total Protein 7.6 g/dL (6.4-8.2) Albumin 3.5 g/dL (3.4-5.0) Albumin/Globulin Ratio 0.9 (1.0-1.7) Urine Opiates Screen Pos (NEG) Urine Methadone Screen Neg (NEG) Urine Barbiturates Neg (NEG) Urine Phencyclidine Screen Neg (NEG) Urine Amphetamine/Methamphetamine Neg (NEG) Urine Benzodiazepines Screen Neg (NEG) Urine Cocaine Screen Neg (NEG) Urine Cannabinoids Screen Neg (NEG) Urine Ethyl Alcohol Neg (NEG) O2 Saturation 96 % (92-99) Arterial Blood pH 7.35 (7.35-7.45) Arterial Blood pCO2 at Patient Temp 61 mmHg (35-46) Arterial Blood pO2 at Patient Temp 95 mmHg (65-108) Arterial Blood HCO3 33 mmol/L (21-28) Arterial Blood Base Excess 6 mmol/L (-3-3) Oxyhemoglobin 95.6 % Methemoglobin 0.1 % (0.0-1.9) Carbon Monoxide, Quantitative 0.6 % (0.0-1.9) FiO2 32 Test 11/09/19 22:32 11/10/19 08:22 11/10/19 11:37 Glucose (Fingerstick) 141 mg/dL (70-99) 102 mg/dL (70-99) 151 mg/dL (70-99) Laboratory Tests Test 11/09/19 16:37 11/09/19 20:10 11/09/19 22:32 11/10/19 08:22 Troponin I Quantitative 0.038 ng/mL (0.000-0.055) 0.022 ng/mL (0.000-0.055) Glucose (Fingerstick) 141 mg/dL (70-99) 102 mg/dL (70-99) Test 11/10/19 11:37 Glucose (Fingerstick) 151 mg/dL (70-99) Microbiology 11/09/19 Blood Culture - Preliminary, Resulted NO GROWTH AFTER 1 DAY Medications Current Medications Fentanyl Citrate (Fentanyl 2ml Vial) 50 mcg 1X ONCE IVP Last administered on at 14:36; Start 11/09/19 at 14:00; Stop 11/09/19 at 14:06; Status DC Albuterol Sulfate (Ventolin Neb Soln) 2.5 mg 1X ONCE NEB Last administered on 11/09/19at 15:02; Start 11/09/19 at 14:00; Stop 11/09/19 at 14:06; Status DC Ondansetron HCl (Zofran) 4 mg 1X ONCE IVP Last administered on 11/09/19at 14:35; Start 11/09/19 at 14:00; Stop 11/09/19 at 14:06; Status DC Aspirin (Jahaira Aspirin) 325 mg 1X ONCE PO Last administered on 11/09/19at 14:35; Start 11/09/19 at 14:00; Stop 11/09/19 at 14:06; Status DC Furosemide (Lasix) 80 mg 1X ONCE IVP Last administered on 11/09/19at 16:20; Start 11/09/19 at 15:30; Stop 11/09/19 at 15:31; Status DC Ondansetron HCl (Zofran) 4 mg PRN Q8HRS PRN IV NAUSEA/VOMITING; Start 11/09/19 at 16:00; Stop 11/10/19 at 15:59 Albuterol/ Ipratropium (Duoneb) 3 ml RTQID NEB ; Start 11/09/19 at 16:00; Stop 11/09/19 at 16:53; Status DC Morphine Sulfate (Morphine Sulfate) 2 mg 1X ONCE IV Last administered on 11/09/19at 16:40; Start 11/09/19 at 16:30; Stop 11/09/19 at 16:31; Status DC Morphine Sulfate (Morphine Sulfate) 2 mg STK-MED ONCE .ROUTE ; Start 11/09/19 at 16:31; Stop 11/09/19 at 16:32; Status DC Albuterol Sulfate (Ventolin Neb Soln) 2.5 mg PRN QID PRN NEB SHORTNESS OF BREATH; Start 11/09/19 at 17:00 Amlodipine Besylate (Norvasc) 10 mg DAILY PO Last administered on 11/10/19at 09:05; Start 11/10/19 at 09:00 Aspirin (Ecotrin) 81 mg DAILY PO Last administered on 11/10/19at 08:58; Start 11/10/19 at 09:00 Atorvastatin Calcium (Lipitor) 20 mg HS PO Last administered on 11/09/19at 20:58; Start 11/09/19 at 21:00 Calcium/Vitamin D (Oscal D 500mg/ 200uts) 1 tab DAILY PO Last administered on 11/10/19 08:59; Start 11/10/19 at 09:00 Capsaicin (Zostrix) 1 tre TID TP Last administered on 11/10/19 13:49; Start 11/09/19 at 21:00 Clopidogrel Bisulfate (Plavix) 75 mg DAILY PO Last administered on 11/10/19 08:59; Start 11/10/19 at 09:00 Docusate Sodium (Colace) 100 mg BID PO Last administered on 11/10/19 08:57; Start 11/09/19 at 21:00 Ferrous Sulfate (Feosol) 325 mg DAILYWBKFT PO Last administered on 11/10/19 08:59; Start 11/10/19 at 08:00 Fluoxetine HCl (PROzac) 20 mg DAILY PO Last administered on 11/10/19 08:59; Start 11/10/19 at 09:00 Furosemide (Lasix) 80 mg BID92 PO Last administered on 11/10/19 13:49; Start 11/10/19 at 09:00 Glimepiride (Amaryl) 2 mg DAILY PO Last administered on 11/10/19 08:58; Start 11/10/19 at 09:00 Hydralazine HCl (Apresoline) 50 mg TID PO Last administered on 11/10/19 13:49; Start 11/09/19 at 21:00 Nitroglycerin (Nitrostat) 0.4 mg PRN Q5MIN PRN SL CHEST PAIN; Start 11/09/19 at 19:45 Oxycodone/ Acetaminophen (Percocet 5/325) 1 tab PRN Q6HRS PRN PO MODERATE TO SEVERE PAIN Last administered on 11/10/19at 10:11; Start 11/09/19 at 19:45 Pantoprazole Sodium (Protonix) 40 mg DAILYAC PO Last administered on 11/10/19 08:59; Start 11/10/19 at 07:30 Zolpidem Tartrate (Ambien) 5 mg PRN QHS PRN PO INSOMNIA Last administered on 11/09/19 21:18; Start 11/09/19 at 19:45 Carvedilol (Coreg) 6.25 mg BIDWMEALS PO Last administered on 8/19/20at 09:06; Start 11/10/19 at 08:00 Non-Formulary Medication (Empagliflozin (Jardiance)) 10 mg DAILY PO ; Start 11/10/19 at 09:00 Non-Formulary Medication (Fluticasone/ Salmeterol (Advair 250-50 Diskus)) 1 puff BID IH ; Start 11/09/19 at 21:00; Status UNV Isosorbide Mononitrate (Imdur) 60 mg DAILY PO Last administered on 11/10/19at 09:08; Start 11/10/19 at 09:00 Losartan Potassium (Cozaar) 100 mg DAILY PO Last administered on 11/10/19at 09:07; Start 11/10/19 at 09:00 Linagliptin (Tradjenta) 5 mg DAILY PO Last administered on 11/10/19at 08:58; Start 11/10/19 at 09:00 Albuterol Sulfate (Ventolin Neb Soln) 2.5 mg Q6HRS NEB Last administered on 11/10/19at 13:08; Start 11/09/19 at 20:15 Budesonide (Pulmicort) 0.5 mg RTBID NEB Last administered on 11/10/19at 07:29; Start 11/09/19 at 20:30 Active Scripts Active Jardiance (Empagliflozin) 10 Mg Tablet 10 Mg PO DAILY 90 Days Januvia (Sitagliptin Phosphate) 50 Mg Tablet 1 Tab PO DAILY 90 Days Hydralazine Hcl 50 Mg Tablet 50 Mg PO TID 90 Days Isosorbide Mononitrate Er (Isosorbide Mononitrate) 60 Mg Tab.er.24h 1 Tab PO DAILY 90 Days Amlodipine Besylate 5 Mg Tablet 10 Mg PO DAILY 30 Days Feosol (Ferrous Sulfate) 325 Mg Tablet 325 Mg PO DAILYWBKFT 30 Days Protonix (Pantoprazole Sodium) 40 Mg Tablet.dr 40 Mg PO DAILYAC 60 Days Ondansetron Odt (Ondansetron) 4 Mg Tab.rapdis 1 Tab PO PRN Q6-8HRS Proair Hfa Inhaler (Albuterol Sulfate) 8.5 Gm Hfa.aer.ad 1 Puff INH PRN Q6HRS PRN Amaryl (Glimepiride) 2 Mg Tablet 2 Mg PO DAILY 30 Days Reported Clopidogrel (Clopidogrel Bisulfate) 75 Mg Tablet 75 Mg PO DAILY Losartan Potassium 100 Mg Tablet 100 Mg PO DAILY Carvedilol 25 Mg Tablet 6.25 Mg PO DAILY 1-2 TABS A DAY Advair 250-50 Diskus (Fluticasone/Salmeterol) 1 Each Disk.w.dev 1 Puff IH BID 90 Days Percocet 5-325 mg Tablet (Oxycodone HCl/Acetaminophen) 1 Each Tablet 1 Tab PO PRN Q6HRS PRN MDD 2 Tablet(s) Ambien (Zolpidem Tartrate) 5 Mg Tablet 5 Mg PO PRN QHS PRN Docusate Sodium 100 Mg Capsule 1 Cap PO BID Capsaicin 60 Gm Cream..g. 60 Gm TP TID apply to morgan feet Calcium 500 + Vit D 200 Caplet (Calcium Carbonate/Vitamin D3) 1 Each Tablet 1 Each PO DAILY Fluoxetine Hcl 20 Mg Capsule 1 Cap PO DAILY Furosemide 80 Mg Tablet 80 Mg PO BIDAC NITROGLYCERIN SubLingual (Nitroglycerin) 0.4 Mg Tab.subl 0.4 Mg SL PRN Q5MIN PRN Atorvastatin Calcium 20 Mg Tablet 20 Mg PO HS Aspir 81 (Aspirin) 81 Mg Tablet. 1 Tab PO DAILY Vitals/I & O Vital Sign - Last 24 Hours 11/09/19 11/09/19 11/09/19 11/09/19 15:49 16:19 16:40 16:49 Pulse 72 79 69 Resp 22 25 17 24 B/P (MAP) 226/88 (134) 235/85 (135) 199/76 (117) Pulse Ox 100 100 99 100 O2 Delivery Nasal Cannula Nasal Cannula Nasal Cannula Nasal Cannula O2 Flow Rate 3.0 3.0 3.0 3.0 11/09/19 11/09/19 11/09/19 11/09/19 17:10 17:19 17:49 18:19 Pulse 61 68 72 Resp 24 23 27 B/P (MAP) 236/81 (132) 221/102 (141) 221/77 (125) Pulse Ox 100 100 100 O2 Delivery Nasal Cannula Nasal Cannula Nasal Cannula Nasal Cannula O2 Flow Rate 3.0 3.0 3.0 3.0 11/09/19 11/09/19 11/09/19 11/09/19 18:49 20:00 20:20 20:45 Temp 99.1 99.1 Pulse 72 88 Resp 23 22 B/P (MAP) 238/87 (137) 161/69 (99) Pulse Ox 100 99 99 O2 Delivery Nasal Cannula Nasal Cannula Nasal Cannula Nasal Cannula O2 Flow Rate 3.0 3.0 3.0 3.0 11/09/19 11/09/19 11/09/19 11/09/19 20:45 20:58 20:58 21:58 Pulse 88 Resp 20 21 B/P (MAP) 161/69 Pulse Ox 99 O2 Delivery Nasal Cannula Nasal Cannula Nasal Cannula O2 Flow Rate 3.0 11/09/19 11/10/19 11/10/19 11/10/19 23:07 00:15 03:20 07:00 Temp 99.0 99.8 97.9 99.0 99.8 97.9 Pulse 79 67 81 Resp 22 20 20 B/P (MAP) 131/60 (83) 133/53 (79) 150/47 (81) Pulse Ox 97 98 94 94 O2 Delivery Nasal Cannula Nasal Cannula Nasal Cannula Nasal Cannula O2 Flow Rate 3.0 3.0 3.0 3.0 11/10/19 11/10/19 11/10/19 11/10/19 07:29 08:15 09:04 09:05 Pulse 81 81 B/P (MAP) 147/63 147/63 Pulse Ox 99 O2 Delivery Nasal Cannula Nasal Cannula O2 Flow Rate 3.0 3.0 11/10/19 11/10/19 11/10/19 11/10/19 09:06 09:07 09:08 10:11 Pulse 81 81 81 B/P (MAP) 147/63 147/63 147/63 O2 Delivery Nasal Cannula 11/10/19 11/10/19 11/10/19 11/10/19 11:00 11:16 13:08 13:49 Temp 98.2 98.2 Pulse 75 75 Resp 20 B/P (MAP) 126/60 (82) 126/60 Pulse Ox 97 97 O2 Delivery Nasal Cannula Room Air Nasal Cannula O2 Flow Rate 3.0 2.0 Intake and Output 11/09/19 11/09/19 11/10/19 15:00 23:00 07:00 Intake Total 240 ml 240 ml Output Total 1300 ml Balance -1060 ml 240 ml Justicifation of Admission Dx: Justifications for Admission: Justification of Admission Dx: Yes LIZBET MAC MD Nov 10, 2019 15:23
[2019-11-10 19:00] VITALS: BP 115/37
[2019-11-10] MEDS: IPRATRPIUM/ALBUTEROL 0.5/2.5MG 3 ML NEBU. NEB SCH (19:38)
[2019-11-10] MEDS: ATORVASTATIN CALCIUM 20 MG TABLET PO SCH (21:36)
[2019-11-10] MEDS: methylPREDNISolone SOD SUCC PF 40 MG/ML VIAL. IV SCH (21:45)
[2019-11-10] MEDS: ZOLPIDEM 5 MG TABLET. PO PRN (21:50)
[2019-11-10 23:42] VITALS: BP 140/45
[2019-11-11] MEDS: oxyCODONE/APAP 5/325 1 TAB TABLET PO PRN ×3 (01:21→14:39)
[2019-11-11 03:24] VITALS: BP 151/55
[2019-11-11 07:00] VITALS: BP 150/53
[2019-11-11] MEDS: BUDESONIDE 0.5 MG/2 ML NEBU. NEB SCH (07:13)
[2019-11-11] MEDS: IPRATRPIUM/ALBUTEROL 0.5/2.5MG 3 ML NEBU. NEB SCH ×3 (07:13→15:26)
[2019-11-11] MEDS ORDERED: ALBUTEROL SULFATE 2.5 MG/3 ML NEBU. NEB PRN (09:00)
[2019-11-11] MEDS: methylPREDNISolone SOD SUCC PF 40 MG/ML VIAL. IV SCH (09:14)
[2019-11-11] MEDS: CALCIUM CARB/VIT D3 500/200 TABLET. PO SCH (09:17)
[2019-11-11] MEDS: DOCUSATE SODIUM 100 MG CAPSULE. PO SCH (09:17)
[2019-11-11] MEDS: ISOSORBIDE MONONITRATE ER 30 MG TAB.ER.24H PO SCH (09:17)
[2019-11-11] MEDS: LOSARTAN POTASSIUM 50 MG TABLET. PO SCH (09:17)
[2019-11-11] MEDS: GLIMEPIRIDE 2 MG TABLET. PO SCH (09:17)
[2019-11-11] MEDS: CARVEDILOL 6.25 MG TABLET. PO SCH ×2 (09:18→17:12)
[2019-11-11] MEDS: ASPIRIN ENTERIC COATED 81 MG TABLET.DR. PO SCH (09:18)
[2019-11-11] MEDS: amLODIPine BESYLATE 10 MG TABLET PO SCH (09:18)
[2019-11-11] MEDS: CLOPIDOGREL BISULFATE 75 MG TABLET PO SCH (09:18)
[2019-11-11] MEDS: LINAGLIPTIN 5 MG TABLET PO SCH (09:18)
[2019-11-11] MEDS: PANTOPRAZOLE 40 MG TABLET.DR. PO SCH (09:19)
[2019-11-11] MEDS: FUROSEMIDE 80 MG TABLET. PO SCH ×2 (09:19→14:40)
[2019-11-11] MEDS: EMPAGLIFLOZIN 10 MG PO SCH (09:19)
[2019-11-11] MEDS: FERROUS SULFATE 325 MG TABLET. PO SCH (09:19)
[2019-11-11] MEDS: FLUoxetine HCL 20 MG CAPSULE PO SCH (09:19)
[2019-11-11] MEDS: CAPSAICIN 0.025% TOPICAL CREAM 60GM TUBE. TP SCH ×2 (09:20→14:40)
[2019-11-11 09:44] LABS: ALBUMIN/GLOBULIN RATIO 0.6 (1.0-1.7); CALCIUM 9.2 mg/dL (8.5-10.1); CREATININE 0.8 mg/dL (0.6-1.0); GFR 87.1; MAGNESIUM 2.2 mg/dL (1.8-2.4); POTASSIUM 4.2 mmol/L (3.5-5.1); TOTAL BILIRUBIN 0.3 mg/dL (0.2-1.0); TOTAL PROTEIN 7.7 g/dL (6.4-8.2)
[2019-11-11 11:00] VITALS: BP 122/65
--- NOTE | 2019-11-11 12:46 | NUR ---
SS following up with discharge planning. SS reviewed pt chart and discussed with pt RN. Pt is currently requiring oxygen. Pt has home oxygen. Discharge plan is to home when medically ready. Possible discharge to home today. SS will continue to follow for discharge planning.
--- NOTE | 2019-11-11 13:11 | PDOC ---
REDDY MARTINEZ COPY DIRECTOR 11/11/19 1311: CARDIO Progress Notes Date and Time Date of Service 11/11/2019 Time of Evaluation 0940 Subjective Subjective: No Chest Pain, No shortness of breath, No Palpitations Vitals Vitals Vital Signs Date Time Temp Pulse Resp B/P (MAP) Pulse Ox O2 Delivery O2 Flow Rate FiO2 11/11/19 11:32 Nasal Cannula 2.0 11/11/19 11:00 98.0 78 18 122/65 (84) 96 98.0 Weight Weight [ ] Input and Output Intake and Output Intake and Output 11/11/19 07:00 Intake Total 1710 ml Output Total 1325 ml Balance 385 ml Intake Oral 1710 ml Output Urine Total 1325 ml # Bowel Movements 1 Laboratory Labs Laboratory Tests Test 11/10/19 17:08 11/10/19 20:49 11/11/19 08:04 11/11/19 08:55 Glucose (Fingerstick) 90 mg/dL (70-99) 142 mg/dL (70-99) 185 mg/dL (70-99) Sodium Level 141 mmol/L (136-145) Potassium Level 4.2 mmol/L (3.5-5.1) Chloride Level 99 mmol/L (98-107) Carbon Dioxide Level 42 mmol/L (21-32) Anion Gap 0 (6-14) Blood Urea Nitrogen 13 mg/dL (7-20) Creatinine 0.8 mg/dL (0.6-1.0) Estimated GFR (Cockcroft-Gault) 87.1 BUN/Creatinine Ratio 16 (6-20) Glucose Level 146 mg/dL (70-99) Calcium Level 9.2 mg/dL (8.5-10.1) Magnesium Level 2.2 mg/dL (1.8-2.4) Total Bilirubin 0.3 mg/dL (0.2-1.0) Aspartate Amino Transf (AST/SGOT) 11 U/L (15-37) Alanine Aminotransferase (ALT/SGPT) 16 U/L (14-59) Alkaline Phosphatase 94 U/L (46-116) Total Protein 7.7 g/dL (6.4-8.2) Albumin 3.0 g/dL (3.4-5.0) Albumin/Globulin Ratio 0.6 (1.0-1.7) Test 11/11/19 11:50 Glucose (Fingerstick) 170 mg/dL (70-99) Microbiology Micro Microbiology 11/09/19 Blood Culture - Preliminary, Resulted NO GROWTH AFTER 1 DAY Physical Exam HEENT: Neck Supple W Full Motion Chest: Symmetric LUNGS: Other (dimnished bases) Heart: RRR (paced) Abdomen: Soft N/T, Other (obese) Extremities: No Edema Neurology: alert, oriented, follow commands Assessment Assessment 1. Acute on chronic diastolic CHF: notable for severe LVH and pulmonary HTN, compensated 2. Secondary cor pulmonale 3. Atypical CP: likely from high BP 4. CAD s/p CABG. Cardiac catheterization 04/2018 without any lesions needing intervention. Follows with MAC, Dr. Pozo. 5. HTN urgency: SBP in the 220s, much better after resumption of BP meds. 6. SSS/PPM in situ: paced rhythm 7. Hyperlipidemia 8. Diabetes, II 9. VIOLETTA, morbid obesity: CPAP noncompliant Recommendations 1. Continue lasix therapy. Appears compensated. Clinically CAD is stable. What is inducing her CHF is her uncontrolled HTN as she does not do any BP readings at home since she does not have a machine, Also she has VIOLETTA and has not been wearing it consistently. Discussed compliance and HBPM. Will likely need to rule out any amyloidosis issue. She will have a cardiac MRI in Nov. and will defer further with her [employer] hand rug cleaner Dr. Pozo as far as amyloidosis workup. 2. Secondary prevention measures. ASA/Plavix. Continue current BP regimen 3. Follow up with primary hand rug cleaner, Dr. Pozo upon discharge 5. Discussed diet and med compliance. Suspecting maybe skipping as every time she gets admitted and her meds gets resumed her BP are better controlled. May DC per cardiac standpoint Justicifation of Admission Dx: Justifications for Admission: Justification of Admission Dx: Yes MISBAH HUFFMAN MD 11/11/19 1529: CARDIO Progress Notes Assessment Assessment Patient seen and examined. Agree with MOTOR VEHICLES INSPECTOR's assessment and plan. Acute on chronic diastolic heart failure better compensated. Chest pain atypical and most probably musculoskeletal Recent cardiac catheterization did not show any lesions needing intervention Follow-up with primary hand rug cleaner for further work-up for amyloidosis as previously planned REDDY MARTINEZ APRN Nov 11, 2019 13:11 MISBAH HUFFMAN MD Nov 11, 2019 15:29
[2019-11-11 15:00] VITALS: BP 126/39
[2019-11-11] MEDS ORDERED: oxyCODONE/APAP 10/325 1 TAB TABLET PO ONE (15:15)
[2019-11-11] MEDS ORDERED: PRED50TA PO (15:23)
--- NOTE | 2019-11-11 16:34 | PDOC3 ---
Discharge Summary Visit Information Date of Admission: Nov 09, 2019 Date of Discharge: Nov 11, 2019 Admitting Diagnosis Comment: Chest pain Final Diagnosis Acute on chronic diastolic congestive heart failure Core pulmonary Atypical chest pain Morbid obesity Obstructive sleep apnea on CPAP and poor poor compliance Essential hypertension History of coronary artery disease status post CABG recent cardiac catheterization in April 2018 Atypical chest pain most likely secondary to hypertensive urgency Brief Hospital Course Allergies Allergies Coded Allergies Type Severity Reaction Last Updated Verified No Known Drug Allergies 03/13/19 No Vital Signs Vital Signs Date Time Temp Pulse Resp B/P (MAP) Pulse Ox O2 Delivery O2 Flow Rate FiO2 11/11/19 15:51 18 Nasal Cannula 11/11/19 15:39 3.0 11/11/19 14:40 78 122/65 11/11/19 11:00 98.0 96 98.0 Lab Results Laboratory Tests Test 11/09/19 16:37 11/09/19 20:10 11/09/19 22:32 11/10/19 08:22 Troponin I Quantitative 0.038 ng/mL (0.000-0.055) 0.022 ng/mL (0.000-0.055) Glucose (Fingerstick) 141 mg/dL (70-99) 102 mg/dL (70-99) Test 11/10/19 11:37 11/10/19 17:08 11/10/19 20:49 11/11/19 08:04 Glucose (Fingerstick) 151 mg/dL (70-99) 90 mg/dL (70-99) 142 mg/dL (70-99) 185 mg/dL (70-99) Test 11/11/19 08:55 11/11/19 11:50 Sodium Level 141 mmol/L (136-145) Potassium Level 4.2 mmol/L (3.5-5.1) Chloride Level 99 mmol/L (98-107) Carbon Dioxide Level 42 mmol/L (21-32) Anion Gap 0 (6-14) Blood Urea Nitrogen 13 mg/dL (7-20) Creatinine 0.8 mg/dL (0.6-1.0) Estimated GFR (Cockcroft-Gault) 87.1 BUN/Creatinine Ratio 16 (6-20) Glucose Level 146 mg/dL (70-99) Calcium Level 9.2 mg/dL (8.5-10.1) Magnesium Level 2.2 mg/dL (1.8-2.4) Total Bilirubin 0.3 mg/dL (0.2-1.0) Aspartate Amino Transf (AST/SGOT) 11 U/L (15-37) Alanine Aminotransferase (ALT/SGPT) 16 U/L (14-59) Alkaline Phosphatase 94 U/L (46-116) Total Protein 7.7 g/dL (6.4-8.2) Albumin 3.0 g/dL (3.4-5.0) Albumin/Globulin Ratio 0.6 (1.0-1.7) Glucose (Fingerstick) 170 mg/dL (70-99) Laboratory Tests Test 11/10/19 17:08 11/10/19 20:49 11/11/19 08:04 11/11/19 08:55 Glucose (Fingerstick) 90 mg/dL (70-99) 142 mg/dL (70-99) 185 mg/dL (70-99) Sodium Level 141 mmol/L (136-145) Potassium Level 4.2 mmol/L (3.5-5.1) Chloride Level 99 mmol/L (98-107) Carbon Dioxide Level 42 mmol/L (21-32) Anion Gap 0 (6-14) Blood Urea Nitrogen 13 mg/dL (7-20) Creatinine 0.8 mg/dL (0.6-1.0) Estimated GFR (Cockcroft-Gault) 87.1 BUN/Creatinine Ratio 16 (6-20) Glucose Level 146 mg/dL (70-99) Calcium Level 9.2 mg/dL (8.5-10.1) Magnesium Level 2.2 mg/dL (1.8-2.4) Total Bilirubin 0.3 mg/dL (0.2-1.0) Aspartate Amino Transf (AST/SGOT) 11 U/L (15-37) Alanine Aminotransferase (ALT/SGPT) 16 U/L (14-59) Alkaline Phosphatase 94 U/L (46-116) Total Protein 7.7 g/dL (6.4-8.2) Albumin 3.0 g/dL (3.4-5.0) Albumin/Globulin Ratio 0.6 (1.0-1.7) Test 11/11/19 11:50 Glucose (Fingerstick) 170 mg/dL (70-99) Brief Hospital Course [facility] [address] [place] [address] HISTORY AND PHYSICAL PATIENT: GRETCHEN BONILLA EACCOUNT: [id number] : 1955 LOC: [facility] [facility] AGE: 64 SEX: F STATUS: ADM IN LOCATION: [address] [place] [address] ADMIT DATE: 11/09/2019 CHIEF COMPLAINT: Chest pain. HISTORY OF PRESENT ILLNESS: The patient is a pleasant middle-aged -Finn[place] female well known to my service, we admit her several times a year. Once again, she presents with recurrent chest pain. She does have known coronary artery disease. Rates her pain at 9/10. She has associated facial swelling. Her daughter has been telling her that she looks bloated, discussed the case with ER physician. We are going to admit the patient and consult Cardiology. Patient admitted to the CDU for cardiological evaluation. Imaging studies revealed a mild congestive change with bibasilar lung airspace opacities likely atelectasis or infiltrates, the patient did not have a history compatible with infectious process no sick contacts were reported and she did not have evidence of pleurisy. The patient had normal white blood cell count did not mount a fever and her blood cultures were negative at 2048 hrs. Patient did not have evidence of infection her urinalysis given that it was not a good sample she had trace of bacteria but not complaining of dysuria. This can constitute asymptomatic bacteriuria and given that she is now there is no indication for treatment at this point. She was deemed appropriate for discharge on today's date by our configuration consultant and she will resume her home medications and instructions were given regarding the importance of maintaining a low-salt and fluid restricted diet moving forward in order to minimize chance of her coming back to the hospital for similar presentation. All of her concerns were addressed to the best my abilities she is in hemodynamically stable condition and in good spirits to be discharged home signs and symptoms of concern when to seek medical attention were discussed prior to discharge she acknowledged understanding of all the instructions Recommendations 1. Continue lasix therapy. Appears compensated. Clinically CAD is stable. What is inducing her CHF is her uncontrolled HTN as she does not do any BP readings at home since she does not have a machine, Also she has VIOLETTA and has not been wearing it consistently. Discussed compliance and HBPM. Will likely need to rule out any amyloidosis issue. She will have a cardiac MRI in Nov. and will defer further with her [employer] unified communications engineer Dr. Pozo as far as amyloidosis workup. 2. Secondary prevention measures. ASA/Plavix. Continue current BP regimen 3. Follow up with primary [employer] unified communications engineer, Dr. Pozo upon discharge 5. Discussed diet and med compliance. Suspecting maybe skipping as every time she gets admitted and her meds gets resumed her BP are better controlled. May DC per cardiac standpoint Justicifation of Admission Dx: Justifications for Admission: Justification of Admission Dx: Yes MISBAH HUFFMAN MD 11/11/19 1529: CARDIO Progress Notes Assessment Assessment Patient seen and examined. Agree with LINK WIRE FABRIC MACHINE TENDER's assessment and plan. Acute on chronic diastolic heart failure better compensated. Chest pain atypical and most probably musculoskeletal Recent cardiac catheterization did not show any lesions needing intervention Follow-up with primary [employer] unified communications engineer for further work-up for amyloidosis as previously planned Assessment Assessment [facility] [address] [facility] [place], [place] [id number] IMAGING REPORT Signed PATIENT: GRETCHEN BONILLA EACCOUNT: [id number] : 1955 LOCATION: ER AGE: 64 SEX: F EXAM STATUS: REG ER ORD. PHYSICIAN: LUIS A KING APRN REASON: chest pain PROCEDURE: PORTABLE CHEST 1V EXAM: CHEST 1 VIEW History: Chest pain COMPARISON: 10/09/2019 TECHNIQUE: Single portable radiograph of the chest FINDINGS: Moderate cardiomegaly is unchanged. Left-sided cardiac pacer is identified. Mild bibasilar lung airspace opacities likely atelectasis or infiltrates. Minimal prominent bilateral interstitial lung markings. IMPRESSION: 1. Mild congestive changes with bibasilar lung airspace opacities likely atelectasis or infiltrates. Electronically signed by: Carlito Irwin MD (11/09/2019 2:22 PM) [id number] DICTATED and SIGNED BY: CARLITO IRWIN MD DATE: 11/09/19 1425 Physical Exam HEENT: Neck Supple W Full Motion Chest: Symmetric LUNGS: Other (dimnished bases) Heart: RRR (paced) Abdomen: Soft N/T, Other (obese) Extremities: No Edema Neurology: alert, oriented, follow commands Discharge Information Condition at Discharge: Improved Follow Up: Weeks Disposition/Orders: D/C to Home Scheduled Amlodipine Besylate (Amlodipine Besylate) 5 Mg Tablet, 10 MG PO DAILY for BLOOD PRESSURE for 30 Days, #60 Prescribed by: JHON ZAPIEN MD on 04/01/19 1455 Last Action: Continued on 11/09/191934 by NIATalib BUCHANAN Aspirin (Aspir 81) 81 Mg Tablet.dr, 1 TAB PO DAILY, #30 Ref 5 (Reported) Entered as Reported by: FIFI WALSH on 10/28/16 1058 Last Action: Continued on 11/09/191934 by NIATalib BUCHANAN Atorvastatin Calcium (Atorvastatin Calcium) 20 Mg Tablet, 20 MG PO HS for FOR CHOLESTEROL, #30 Ref 0 (Reported) Entered as Reported by: FIFI WALSH on 10/28/16 1108 Last Action: Continued on 11/09/191934 by PERICO BUCHANAN Calcium Carbonate/Vitamin D3 (Calcium 500 + Vit D 200 Caplet) 1 Each Tablet, 1 EACH PO DAILY for supplement, (Reported) Entered as Reported by: KENNEY YANG on 05/16/18 2322 Last Action: Continued on 11/09/191934 by PERICO BUCHANAN Capsaicin (Capsaicin) 60 Gm Cream..g., 60 GM TP TID for , (Reported) apply to morgan feet Entered as Reported by: Tiffany Dodson on 07/14/18 2111 Last Action: Continued on 11/09/191934 by NIATalib BUCHANAN Carvedilol (Carvedilol) 25 Mg Tablet, 6.25 MG PO DAILY for HEART FAILURE, (Reported) 1-2 TABS A DAY Entered as Reported by: Laureano Nazario RN on 10/10/19 0657 Last Action: Converted on 11/09/191934 by PERICO BUCHANAN Clopidogrel Bisulfate (Clopidogrel) 75 Mg Tablet, 75 MG PO DAILY for TO PREVENT BLOOD CLOTS, #30 Ref 0 (Reported) Entered as Reported by: Laureano Nazario RN on 10/10/19 0703 Last Action: Continued on 11/09/191934 by NIAL CASTLE Docusate Sodium (Docusate Sodium) 100 Mg Capsule, 1 CAP PO BID for constipation, #14 (Reported) Entered as Reported by: MAGDI NUNEZ RN on 12/05/18 0116 Last Action: Continued on 11/09/191934 by NIAL CASTLE Empagliflozin (Jardiance) 10 Mg Tablet, 10 MG PO DAILY for CHF/DM2 for 90 Days, #90 Ref 3 Prescribed by: VENKAT ALEJANDRO MD on 10/13/19 1226 Last Action: Converted on 11/09/191934 by NIAL CASTLE Ferrous Sulfate (Feosol) 325 Mg Tablet, 325 MG PO DAILYWBKFT for ROXANE for 30 Days, #30 Ref 2 Prescribed by: VENKAT ALEJANDRO MD on 02/16/19 1248 Last Action: Continued on 11/09/191934 by NIAL CASTLE Fluoxetine Hcl (Fluoxetine Hcl) 20 Mg Capsule, 1 CAP PO DAILY for anti- depressent, #90 Ref 1 (Reported) Entered as Reported by: KENNEY YANG on 05/16/18 2322 Last Action: Continued on 11/09/191934 by NIAL CASTLE Fluticasone/Salmeterol (Advair 250-50 Diskus) 1 Each Disk.w.dev, 1 PUFF IH BID for COPD, shortness of breath for 90 Days, #3 Ref 0 (Reported) Entered as Reported by: VINCENZO GEE on 06/17/19 1454 Last Action: Converted on 11/09/191934 by NIAL CASTLE Furosemide (Furosemide) 80 Mg Tablet, 80 MG PO BIDAC for heart, (Reported) Entered as Reported by: NAM MORTENSEN on 10/09/17 1408 Last Action: Continued on 11/09/191934 by NIAL CASTLE Glimepiride (Amaryl) 2 Mg Tablet, 2 MG PO DAILY for 30 Days, #30 Prescribed by: RADHA PIERRE MD on 07/04/17 1010 Last Action: Continued on 11/09/191934 by NIAL CASTLE Hydralazine Hcl (Hydralazine Hcl) 50 Mg Tablet, 50 MG PO TID for CHF/HTN for 90 Days, #270 Prescribed by: VENKAT ALEJANDRO MD on 10/13/19 1226 Last Action: Continued on 11/09/191934 by PERICO BUCHANAN Isosorbide Mononitrate (Isosorbide Mononitrate Er) 60 Mg Tab.er.24h, 1 TAB PO DAILY for CHF/HTN for 90 Days, #90 Ref 1 Prescribed by: VENKAT ALEJANDRO MD on 10/13/19 1226 Last Action: Converted on 11/09/191934 by NIATalib BUCHANAN Losartan Potassium (Losartan Potassium) 100 Mg Tablet, 100 MG PO DAILY for HYPERTENSION, (Reported) Entered as Reported by: Laureano Nazario RN on 10/10/19 0703 Last Action: Converted on 11/09/191934 by NIATalib BUCHANAN Ondansetron (Ondansetron Odt) 4 Mg Tab.rapdis, 1 TAB PO PRN Q6-8HRS, #16 Prescribed by: Celine Cevallos APRN on 08/13/18 2106 Pantoprazole Sodium (Protonix ) 40 Mg Tablet.dr, 40 MG PO DAILYAC for GERD for 60 Days, #60 Prescribed by: CATHIE KNIGHT on 01/29/19 0857 Last Action: Continued on 11/09/191934 by PERICO BUCHANAN Prednisone (Prednisone) 50 Mg Tablet, 1 TAB PO DAILY for COPD, #5 Prescribed by: LIZBET MAC MD on 11/11/19 1523 Sitagliptin Phosphate (Januvia) 50 Mg Tablet, 1 TAB PO DAILY for DM2 for 90 Days, #90 Ref 1 Prescribed by: VENKAT ALEJANDRO MD on 10/13/19 1226 Last Action: Converted on 11/09/191934 by PERICO BUCHANAN Scheduled PRN Albuterol Sulfate (Proair Hfa Inhaler) 8.5 Gm Hfa.aer.ad, 1 PUFF INH PRN Q6HRS PRN for SHORTNESS OF BREATH, #1 Ref 0 Prescribed by: MILLER ORTIZ MD on 06/21/18 1711 Nitroglycerin (NITROGLYCERIN SubLingual) 0.4 Mg Tab.subl, 0.4 MG SL PRN Q5MIN PRN for CHEST PAIN, (Reported) Entered as Reported by: LOYDA CELAYA RN on 11/01/16 0013 Last Action: Continued on 11/09/191934 by PERICO BUCHANAN Oxycodone HCl/Acetaminophen (Percocet 5-325 mg Tablet) 1 Each Tablet, 1 TAB PO PRN Q6HRS PRN for PAIN MDD 2 Tablet(s), #30 Ref 0 (Reported) Entered as Reported by: VINCENZO GEE on 06/17/19 1255 Last Action: Continued on 11/09/191934 by PERICO BUCHANAN Zolpidem Tartrate (Ambien) 5 Mg Tablet, 5 MG PO PRN QHS PRN for INSOMNIA, Ref 0 (Reported) Entered as Reported by: Mikel Guadarrama on 04/16/192003 Last Action: Continued on 11/09/191934 by PERICO BUCHANAN Justicifation of Admission Dx: Justifications for Admission: Justification of Admission Dx: Yes LIZBET MAC MD Nov 11, 2019 16:34
[2019-11-11 17:12] VITALS: BP 122/65
--- NOTE | 2019-11-11 17:51 | NUR ---
Discharge instructions given to patient. Pt informed to follow up with her Primary Care Physician and Dr. Pozo after discharge. Education given over HTN, Chest Pain, SOB, and medications. Patient verbalizes understanding.
== END 2019-11-11 19:20 | disposition home or self-care (01) | DRG 304 ==
LOC: ER 13:37 → ED HOLD 15:22 → 2 NORTH 17:21
PROVIDERS: ADMIT Internal Medicine; ATTEND Internal Medicine
DX: I16.0 Hypertensive urgency (principal); I50.33 Acute on chronic diastolic (congestive) heart failure; Z68.41 Body mass index [BMI] 40.0-44.9, adult; J44.9 Chronic obstructive pulmonary disease, unspecified; I11.0 Hypertensive heart disease with heart failure; I49.5 Sick sinus syndrome; E11.40 Type 2 diabetes mellitus with diabetic neuropathy, unspecified; E66.01 Morbid (severe) obesity due to excess calories; E78.5 Hyperlipidemia, unspecified; G47.33 Obstructive sleep apnea (adult) (pediatric); R07.89 Other chest pain; I25.10 Atherosclerotic heart disease of native coronary artery without angina pectoris; I27.29 Other secondary pulmonary hypertension; I27.81 Cor pulmonale (chronic); G89.29 Other chronic pain; Z83.3 Family history of diabetes mellitus; Z87.891 Personal history of nicotine dependence; Z91.19 Patient's noncompliance with other medical treatment and regimen; Z95.0 Presence of cardiac pacemaker; Z95.1 Presence of aortocoronary bypass graft
CPT/HCPCS: 36415; 71045; 80053; 80307; 81001; 82805; 82962; 83605; 83735; 83880; 84484; 85007; 85025; 85610; 87040; 93005; 94640; 94760; 96374; 96375; J1940; J2270; J2405; J2920; J3010; 99285-25; G0378; J7613; J7626

== ENCOUNTER 2019-12-09 16:34 | Emergency (ER) | payer MEDICARE, MEDICAID ==
[~2019-12-09] VITALS: Ht 162.6 cm; Wt 113.6 kg
[~2019-12-09 16:34] MED LIST changes: +PRED50TA PO
--- NOTE | 2019-12-09 18:15 | RAD ---
PORTABLE CHEST 1V History: Reason: soa / Spl. Instructions: / History: Comparison: November 09, 2019 Findings: Enlarged cardiac size, unchanged. No consolidation or pleural effusion. No pneumothorax. Left-sided pacemaker, unchanged. Prior median sternotomy. Impression: 1. No acute cardiopulmonary process. Electronically signed by: Jaydon Machado DO (12/09/2019 6:12 PM) [facility]
--- NOTE | 2019-12-09 18:37 | PHYS DOC ---
Past Medical History Past Medical History: CHF, COPD, Diabetes-Type II Additional Past Medical Histor: O2 @3 L PRN, chronic pain, NEUROPATHY (LUIS A KING LUMP ROLLER) Past Surgical History: Other Additional Past Surgical Histo: HERNIA REPAIR, CABG X 2 VESSELS (LUIS A KING LUMP ROLLER) Smoking Status: Never Smoker Alcohol Use: None Drug Use: None (LUIS A KING LUMP ROLLER) General Adult EDM: Chief Complaint: SHORTNESS OF BREATH HPI: HPI: Patient is a 64 year old female who presents with increased right chest tightness and shortness of air for last 2 days. She states that she goes outside for walks without incident and is not around other people nobody could visit her. Patient was admitted on November 08 for CHF exacerbation. She states she is been taking all of her medications daily. States that she uses 3 L of oxygen and she is currently on 3 L of oxygen satting at 97%. Patient states she has been using her nebulizer at home which is helping. She states that she has been off of the steroid for the last 2 weeks now. She rates her chest tightness at a 8 out of 10. She is asking for pain medicine. She has a history of CHF, COPD, diabetes, neuropathy, CABG x2. (LUIS A KING LUMP ROLLER) Review of Systems: Review of Systems: Constitutional: Denies fever or chills. [] Eyes: Denies change in visual acuity. [] HENT: Denies nasal congestion or sore throat. [] Respiratory: Denies cough. Positive for shortness of breath. [] Cardiovascular: Positive for chest pain or denies edema. [] GI: Denies abdominal pain, nausea. positive for vomiting 1 time today after taking her pills. Denies bloody stools or diarrhea. [] : Denies dysuria. [] Musculoskeletal: Denies back pain or joint pain. [] Integument: Denies rash. [] Neurologic: Denies headache, focal weakness or sensory changes. [] Endocrine: Denies polyuria or polydipsia. [] Lymphatic: Denies swollen glands. [] Psychiatric: Denies depression or anxiety. [] (LUIS A KING LUMP ROLLER) Heart Score: HEART Score for Chest Pain: HEART Score for Chest Pain Response (Comments) Value History Moderately Suspicious 1 ECG Nonspecific Repolarizatio 1 Age >45 - < 65 1 Risk Factors >3 Risk Factors or Hx CAD 2 Troponin < Normal Limit 0 Total 5 Risk Factors: Risk Factors: DM, Current or recent (<one month) smoker, HTN, HLP, family history of CAD, obesity. Risk Scores: Score 0 - 3: 2.5% MACE over next 6 weeks - Discharge Home Score 4 - 6: 20.3% MACE over next 6 weeks - Admit for Clinical Observation Score 7 - 10: 72.7% MACE over next 6 weeks - Early Invasive Strategies (LUIS A KING LUMP ROLLER) Allergies: Allergies: Allergies Coded Allergies Type Severity Reaction Last Updated Verified No Known Drug Allergies 03/13/19 No (LUIS A KING LUMP ROLLER) Physical Exam: PE: Constitutional: Well developed, well nourished, no acute distress, non-toxic appearance. [] HENT: Normocephalic, atraumatic, bilateral external ears normal, oropharynx moist, no oral exudates, nose normal. [] Eyes: PERRLA, EOMI, conjunctiva normal, no discharge. [] Neck: Normal range of motion, no tenderness, supple, no stridor. [] Cardiovascular:Heart rate regular rhythm, no murmur [] Lungs & Thorax: Bilateral breath sounds clear to auscultation [] Abdomen: Bowel sounds normal, soft, no tenderness, no masses, no pulsatile masses. [] Skin: Warm, dry, no erythema, no rash. [] Back: No tenderness, no CVA tenderness. [] Extremities: No tenderness, no cyanosis, no clubbing, ROM intact, no edema. [] Neurologic: Alert and oriented X 3, normal motor function, normal sensory function, no focal deficits noted. [] Psychologic: Affect normal, judgement normal, mood normal. [] ([facility],LUIS A Cerda LUMP ROLLER) Current Patient Data: Labs: Laboratory Tests Test 12/09/19 18:43 12/09/19 21:30 12/10/19 00:15 Urine Collection Type Unknown Urine Color Yellow Urine Clarity Cloudy Urine pH 5.5 Urine Specific [place] Level 1.020 Urine Protein 30 mg/dL Urine Glucose (UA) 500 mg/dL Urine Ketones (Stick) Negative mg/dL Urine Blood Negative Urine Nitrite Negative Urine Bilirubin Negative Urine Urobilinogen Dipstick 1.0 mg/dL Urine Leukocyte Esterase Negative Urine RBC 0 /HPF Urine WBC Occ /HPF Urine Squamous Epithelial Cells Many /LPF Urine Bacteria Moderate /HPF Urine Opiates Screen Pos Urine Methadone Screen Neg Urine Barbiturates Neg Urine Phencyclidine Screen Neg Urine Amphetamine/Methamphetamine Neg Urine Benzodiazepines Screen Neg Urine Cocaine Screen Neg Urine Cannabinoids Screen Neg Urine Ethyl Alcohol Neg White Blood Count 8.4 x10^3/uL Red Blood Count 4.42 x10^6/uL Hemoglobin 11.5 g/dL Hematocrit 35.5 % Mean Corpuscular Volume 80 fL Mean Corpuscular Hemoglobin 26 pg Mean Corpuscular Hemoglobin Concent 32 g/dL Red Cell Distribution Width 24.2 % Platelet Count 295 x10^3/uL Neutrophils (%) (Auto) 76 % Lymphocytes (%) (Auto) 13 % Monocytes (%) (Auto) 10 % Eosinophils (%) (Auto) 1 % Basophils (%) (Auto) 0 % Neutrophils # (Auto) 6.4 x10^3/uL Lymphocytes # (Auto) 1.1 x10^3/uL Monocytes # (Auto) 0.8 x10^3/uL Eosinophils # (Auto) 0.0 x10^3/uL Basophils # (Auto) 0.0 x10^3/uL Platelet Estimate Adequate Poikilocytosis Slight Anisocytosis Mod Ovalocytes Present Prothrombin Time 13.2 SEC Prothromb Time International Ratio 1.0 Sodium Level 139 mmol/L Potassium Level 4.2 mmol/L Chloride Level 99 mmol/L Carbon Dioxide Level 33 mmol/L Anion Gap 7 Blood Urea Nitrogen 31 mg/dL Creatinine 1.1 mg/dL Estimated GFR (Cockcroft-Gault) 60.3 BUN/Creatinine Ratio 28 Glucose Level 83 mg/dL Calcium Level 10.1 mg/dL Total Bilirubin 0.4 mg/dL Aspartate Amino Transf (AST/SGOT) 20 U/L Alanine Aminotransferase (ALT/SGPT) 26 U/L Alkaline Phosphatase 96 U/L Troponin I Quantitative < 0.017 ng/mL < 0.017 ng/mL AT-Shs-Q-Type Natriuretic Peptide 633 pg/mL Total Protein 8.1 g/dL Albumin 3.9 g/dL Albumin/Globulin Ratio 0.9 Lipase 154 U/L Current Medications Medications (Trade) Dose Ordered Sig/Susan Route PRN Reason Start Time Stop Time Status Last Admin Dose Admin Fentanyl Citrate (Fentanyl 2ml Vial) 50 mcg 1X ONCE IVP 12/09/19 18:45 12/09/19 23:48 DC Ondansetron HCl (Zofran) 4 mg 1X ONCE IVP 12/09/19 18:45 12/09/19 23:48 DC Methylprednisolone Sodium Succinate (SOLU-Medrol 125MG VIAL) 125 mg 1X ONCE IV 12/09/19 22:30 12/09/19 22:31 DC Albuterol Sulfate (Ventolin Neb Soln) 2.5 mg 1X ONCE NEB 12/09/19 22:30 12/09/19 22:31 DC Ondansetron HCl (Zofran Odt) 4 mg 1X ONCE PO 12/10/19 00:00 12/10/19 00:01 DC Hydromorphone HCl (Dilaudid) 0.5 mg 1X ONCE IM 12/10/19 00:00 12/10/19 00:01 DC (AUDIE BONNER MD) EKG: EK and read by Dr. Bonner as sinus rhythm with right superior axis deviation but no STEMI. [] (LUIS A KING APRN) Radiology/Procedures: Radiology/Procedures: [] Impression: [facility] [address] [place], [place] [id number] IMAGING REPORT Signed PATIENT: GRETCHEN BONILLA ACCOUNT: [id number] : 1955 LOCATION: ER AGE: 64 SEX: F EXAM STATUS: REG ER ORD. PHYSICIAN: LUIS A KING APRN REASON: soa PROCEDURE: PORTABLE CHEST 1V PORTABLE CHEST 1V History: Reason: soa / Spl. Instructions: / History: Comparison: November 09, 2019 Findings: Enlarged cardiac size, unchanged. No consolidation or pleural effusion. No pneumothorax. Left-sided pacemaker, unchanged. Prior median sternotomy. Impression: 1. No acute cardiopulmonary process. Electronically signed by: Jaydon Machado DO (12/09/2019 6:12 PM) [facility] DICTATED and SIGNED BY: JAYDON MACHADO DO DATE: 12/09/191811 (LUIS A KING APRN) Course & Med Decision Making: Course & Med Decision Making Pertinent Labs and Imaging studies reviewed. (See chart for details) See HPI. No EKG changes compared to prior EKG. Speaks in full complete sentences. Alert and oriented x4. Skin pink warm and dry. She has no extremity edema. Patient denies nausea, vomiting, abdominal pain, headache, dizziness, syncope, cough, fever, dysuria, vision changes, focal weakness, numbness or tingling. When looking back in the chart. Patient was admitted for CHF exacerbation and examined by cardiology on November 08 then discharged on November 10. Cardiology said the following: Recommendations 1. Continue lasix therapy. Appears compensated. Clinically CAD is stable. What is inducing her CHF is her uncontrolled HTN as she does not do any BP readings at home since she does not have a machine, Also she has VIOLETTA and has not been wearing it consistently. Discussed compliance and HBPM. Will likely need to rule out any amyloidosis issue. She will have a cardiac MRI in Nov. and will defer further with her [employer] tax accounting manager Dr. Pozo as far as amyloidosis workup. 2. Secondary prevention measures. ASA/Plavix. Continue current BP regimen 3. Follow up with primary tax accounting manager, Dr. Pozo upon discharge 5. Discussed diet and med compliance. Suspecting maybe skipping as every time she gets admitted and her meds gets resumed her BP are better controlled. May DC per cardiac standpoint Blood work shows no acute findings. Chest x-ray is normal. Patient is stable. BNP is lower than it has been. I have reported this patient off to Dr. Bonner. Also spoke to Dr. Be when this patient first came in and he stated that as long as her blood work and radiology was fine and EKG had no new changes since she was just admitted and discharged that she could hardly discharged after 2- troponins. [] (LUIS A KING APRN) Course & Med Decision Making I have reviewed the PA/WASHTUB WORKER HELPER's note and Plan of Care. I was available for consultation as needed during the patient's visit in the emergency department. I agree with the clinical impression, plans and disposition. (AUDIE BONNER MD) Dragon Disclaimer: Dragon Disclaimer: This electronic medical record was generated, in whole or in part, using a voice recognition dictation system. (LUIS A KING APRN) Departure Departure Impression: Primary Impression: Shortness of breath Additional Impression: Nonspecific chest pain Disposition: 01 HOME, SELF-CARE Condition: STABLE Referrals: JENSEN CUEVAS (PCP) Patient Instructions: Chronic Obstructive Pulmonary Disease Exacerbation, [id number], Shortness of Breath Additional Instructions: Follow-up with your tax accounting manager soon as possible. Follow-up with your primary care as soon as possible. Use your breathing treatment regularly. If your symptoms worsen return to the emergency room. Justicifation of Admission Dx: Justifications for Admission: Justification of Admission Dx: N/A (LUIS A KING APRN) Justification of Admission Dx: N/A (AUDIE BONNER MD) LUIS A KING APRN Dec 09, 2019 18:37 AUDIE BONNER MD Dec 10, 2019 00:59
[2019-12-09] MEDS ORDERED: ONDANSETRON PF 4 MG/2 ML VIAL. IVP ONE (18:45)
[2019-12-09] MEDS ORDERED: fentaNYL PF VIAL 100 MCG/2 ML VIAL IVP ONE (18:45)
[2019-12-09 18:50] LABS: BILIRUBIN,URINE NEGATIVE (NEG); CLARITY,URINE CLOUDY; COLOR,URINE YELLOW; NITRITE,URINE NEGATIVE (NEG); PH,URINE 5.5 (<5.0-8.0); PROTEIN,URINE 30 mg/dL (NEG-TRACE)
[2019-12-09 18:54] LABS: RBC,URINE 0 /HPF (0-2); SQUAMOUS EPITHELIAL CELL,UR MANY /LPF
[2019-12-09 18:55] LABS: BACTERIA,URINE MODERATE /HPF (0-FEW); WBC,URINE OCC /HPF (0-4)
[2019-12-09 18:58] LABS: BARBITURATES NEG (NEG); BENZODIAZEPINES NEG (NEG); CANNABINOIDS NEG (NEG); COCAINE NEG (NEG); METHADONE NEG (NEG); OPIATES POS (NEG); PHENCYCLIDINE NEG (NEG)
[2019-12-09 19:01] LABS: AMPHETAMINE/METHAMPHETAMINE NEG (NEG)
[2019-12-09 21:39] LABS: BASO % 0 % (0-3); EOS % 1 % (0-3); HEMATOCRIT 35.5 % (36.0-47.0); HEMOGLOBIN 11.5 g/dL (12.0-15.5); LYMPH # 1.1 x10^3/uL (1.0-4.8); LYMPH % 13 % (24-48); MEAN CORPUSCULAR HEMOGLOBIN 26 pg (25-35); MEAN CORPUSCULAR HGB CONC 32 g/dL (31-37); MEAN CORPUSCULAR VOLUME 80 fL (79-100); MONO # 0.8 x10^3/uL (0.0-1.1); MONO % 10 % (0-9); NEUT # 6.4 x10^3/uL (1.8-7.7); NEUT % 76 % (31-73); PLATELET COUNT 295 x10^3/uL (140-400); RED BLOOD COUNT 4.42 x10^6/uL (3.50-5.40); RED CELL DISTRIBUTION WIDTH 24.2 % (11.5-14.5); WHITE BLOOD COUNT 8.4 x10^3/uL (4.0-11.0)
[2019-12-09 21:46] LABS: PROTHROMBIN TIME PATIENT 13.2 SEC (11.7-14.0)
[2019-12-09 21:48] LABS: CALCIUM 10.1 mg/dL (8.5-10.1); CREATININE 1.1 mg/dL (0.6-1.0); GFR 60.3; POTASSIUM 4.2 mmol/L (3.5-5.1)
[2019-12-09 21:53] LABS: ALBUMIN 3.9 g/dL (3.4-5.0); ALBUMIN/GLOBULIN RATIO 0.9 (1.0-1.7); TOTAL BILIRUBIN 0.4 mg/dL (0.2-1.0); TOTAL PROTEIN 8.1 g/dL (6.4-8.2)
[2019-12-09 22:06] LABS: PLT ESTIMATE ADEQUATE (ADEQUATE)
[2019-12-09 22:10] LABS: ANISOCYTOSIS MOD; OVALOCYTES PRESENT; POIKILOCYTOSIS SLIGHT
[2019-12-09] MEDS ORDERED: methylPREDNISolone SOD SUCC PF 125 MG/2 ML VIAL. IV ONE (22:30)
[2019-12-09] MEDS ORDERED: ALBUTEROL SULFATE 2.5 MG/3 ML NEBU. NEB ONE (22:30)
[2019-12-09 23:27] VITALS: BP 191/77
[2019-12-10] MEDS ORDERED: ONDANSETRON ODT 4 MG TAB.RAPDIS. PO ONE
[2019-12-10] MEDS ORDERED: HYDROmorphone 2 MG/ML VIAL IM ONE
--- NOTE | 2019-12-10 08:51 | EKG ---
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
== END 2019-12-10 01:50 | disposition home or self-care (01) ==
LOC: ER 16:34
DX: R06.02 Shortness of breath (principal); R07.89 Other chest pain; E11.40 Type 2 diabetes mellitus with diabetic neuropathy, unspecified; J44.9 Chronic obstructive pulmonary disease, unspecified; G89.29 Other chronic pain; Z86.79 Personal history of other diseases of the circulatory system; Z95.1 Presence of aortocoronary bypass graft
CPT/HCPCS: 36415; 71045; 80053; 80307; 81001; 83690; 83880; 84484; 85025; 85610; 87086; 93005; 99285

== ENCOUNTER 2020-01-05 15:31 | Emergency (ER) | payer MEDICARE, MEDICAID ==
[~2020-01-05] VITALS: Ht 162.6 cm; Wt 101.8 kg
[~2020-01-05 15:31] MED LIST changes: +AMLO-186 PO; +AMLO-187 PO; -AMLO10TA8 PO; -AMLO5TAB10 PO
--- NOTE | 2020-01-05 18:11 | PHYS DOC ---
Past Medical History Past Medical History: CHF, COPD, Diabetes-Type II Additional Past Medical Histor: O2 @3 L PRN, chronic pain, NEUROPATHY Past Surgical History: Other Additional Past Surgical Histo: HERNIA REPAIR, CABG X 2 VESSELS Smoking Status: Never Smoker Alcohol Use: None Drug Use: None General Adult EDM: Chief Complaint: SHOUDLER pain HPI: HPI: Patient is a 64 year old female who presents with a 3-week history of constant right thoracic pain that radiates to her chest. Pain is 8 out of 10 in severity and worse with movement and deep breaths. Patient has some shortness of breath associated with. Patient has some nausea but no vomiting. Patient has any fevers chills or cough. Pain has been constant. Review of Systems: Review of Systems: Constitutional: Denies fever or chills. [] Eyes: Denies change in visual acuity. [] HENT: Denies nasal congestion or sore throat. [] Respiratory: Complains of shortness of breath with no cough [] Cardiovascular: Complains of chest pain which radiates from the back GI: Denies abdominal pain, vomiting, bloody stools or diarrhea. [] Complains of nausea : Denies dysuria. [] Musculoskeletal: Complains of right-sided thoracic pain Integument: Denies rash. [] Neurologic: Denies headache, focal weakness or sensory changes. [] Endocrine: Denies polyuria or polydipsia. [] Lymphatic: Denies swollen glands. [] Psychiatric: Denies depression or anxiety. [] Heart Score: HEART Score for Chest Pain: HEART Score for Chest Pain Response (Comments) Value History Slighlty/Non-Suspicious 0 ECG Nonspecific Repolarizatio 1 Age >45 - < 65 1 Risk Factors 1 or 2 Risk Factors 1 Troponin < Normal Limit 0 Total 3 Risk Factors: Risk Factors: DM, Current or recent (<one month) smoker, HTN, HLP, family history of CAD, obesity. Risk Scores: Score 0 - 3: 2.5% MACE over next 6 weeks - Discharge Home Score 4 - 6: 20.3% MACE over next 6 weeks - Admit for Clinical Observation Score 7 - 10: 72.7% MACE over next 6 weeks - Early Invasive Strategies Allergies: Allergies: Allergies Coded Allergies Type Severity Reaction Last Updated Verified No Known Drug Allergies 03/13/19 No Physical Exam: PE: Constitutional: Well developed, well nourished, no acute distress, non-toxic appearance. [] HENT: Normocephalic, atraumatic, bilateral external ears normal, no trismus nose normal. [] Eyes: PERRLA, EOMI, conjunctiva normal, no discharge. [] Neck: Normal range of motion, no tenderness, supple, no stridor. [] Cardiovascular:Heart rate regular rhythm, peripheral pulse intact cap refill is brisk Lungs & Thorax: Mildly diminished bilateral breath sounds Abdomen: soft, no tenderness, no masses, no pulsatile masses. [] Skin: Warm, dry, no erythema, no rash. [] Back: No tenderness, no CVA tenderness. Mild tenderness to palpate the right thoracic area Extremities: No tenderness, no cyanosis, no clubbing, ROM intact, no edema. [] Neurologic: Alert and oriented X 3, normal motor function, normal sensory function, no focal deficits noted. [] Psychologic: Affect normal, judgement normal, mood normal. [] Current Patient Data: Labs: Laboratory Tests Test 01/05/20 18:00 01/05/20 18:55 01/05/20 21:15 Urine Collection Type Unknown Urine Color Yellow Urine Clarity Clear Urine pH 8.0 Urine Specific [place] 1.015 Urine Protein Negative mg/dL Urine Glucose (UA) >=1000 mg/dL Urine Ketones (Stick) Negative mg/dL Urine Blood Negative Urine Nitrite Negative Urine Bilirubin Negative Urine Urobilinogen Dipstick 1.0 mg/dL Urine Leukocyte Esterase Negative Urine RBC 0 /HPF Urine WBC 0 /HPF Urine Bacteria 0 /HPF White Blood Count 8.2 x10^3/uL Red Blood Count 4.28 x10^6/uL Hemoglobin 11.0 g/dL Hematocrit 34.9 % Mean Corpuscular Volume 82 fL Mean Corpuscular Hemoglobin 26 pg Mean Corpuscular Hemoglobin Concent 32 g/dL Red Cell Distribution Width 22.6 % Platelet Count 286 x10^3/uL Neutrophils (%) (Auto) 80 % Lymphocytes (%) (Auto) 11 % Monocytes (%) (Auto) 8 % Eosinophils (%) (Auto) 0 % Basophils (%) (Auto) 1 % Neutrophils # (Auto) 6.6 x10^3/uL Lymphocytes # (Auto) 0.9 x10^3/uL Monocytes # (Auto) 0.6 x10^3/uL Eosinophils # (Auto) 0.0 x10^3/uL Basophils # (Auto) 0.0 x10^3/uL Platelet Estimate Adequate Hypochromasia Slight Poikilocytosis Slight Anisocytosis Mod Spherocytes Occ Ovalocytes Mod Helmet Cells Occ Prothrombin Time 13.6 SEC Prothromb Time International Ratio 1.1 Activated Partial Thromboplast Time 33 SEC Sodium Level 138 mmol/L Potassium Level 4.8 mmol/L Chloride Level 100 mmol/L Carbon Dioxide Level 35 mmol/L Anion Gap 3 Blood Urea Nitrogen 13 mg/dL Creatinine 0.9 mg/dL Estimated GFR (Cockcroft-Gault) 76.0 BUN/Creatinine Ratio 14 Glucose Level 67 mg/dL Calcium Level 10.5 mg/dL Total Bilirubin 0.4 mg/dL Aspartate Amino Transf (AST/SGOT) 28 U/L Alanine Aminotransferase (ALT/SGPT) 21 U/L Alkaline Phosphatase 99 U/L Troponin I Quantitative < 0.017 ng/mL [place]-Vwq-[id number]-Type Natriuretic Peptide 1731 pg/mL Total Protein 8.4 g/dL Albumin 3.5 g/dL Albumin/Globulin Ratio 0.7 Lipase 93 U/L Glucose (Fingerstick) 93 mg/dL Current Medications Medications (Trade) Dose Ordered Sig/Susan Route PRN Reason Start Time Stop Time Status Last Admin Dose Admin Ketorolac Tromethamine (Toradol 15mg Vial) 15 mg 1X ONCE IVP 01/05/20 18:30 01/05/20 18:31 DC 01/05/20 19:06 Ondansetron HCl (Zofran Odt) 4 mg 1X ONCE PO 01/05/20 19:30 01/05/20 19:31 DC 01/05/20 19:45 Vital Signs: Vital Signs Date Time Temp Pulse Resp B/P (MAP) Pulse Ox O2 Delivery O2 Flow Rate FiO2 01/05/20 18:00 98.3 68 18 185/82 (116) 94 Room Air 98.3 01/05/20 16:00 98.3 75 22 179/72 (107) 95 Room Air 98.3 Vital Signs Date Time Temp Pulse Resp B/P (MAP) Pulse Ox O2 Delivery O2 Flow Rate FiO2 01/05/20 16:00 98.3 75 22 179/72 (107) 95 Room Air 98.3 EKG: EKG: EKG interpreted by me normal sinus rhythm with a rate of 71, nonspecific idioventricular block nonspecific ST changes [] EKG essentially unchanged from October 2019 Radiology/Procedures: Radiology/Procedures: [][facility] [address] [place] [address] IMAGING REPORT Signed PATIENT: GRETCHEN BONILLA EACCOUNT: [id number] : 1955 LOCATION: ER AGE: 64 SEX: F EXAM STATUS: REG ER ORD. PHYSICIAN: AUDIE BONNER MD REASON: r chest pain PROCEDURE: PORTABLE CHEST 1V Examination: SHOULDER 2+V RIGHT, PORTABLE CHEST 1V History: Reason: r shoulde pain / Spl. Instructions: / History: Comparison/Correlation: 12/09/2019 Findings: Portable upright frontal view of the chest was obtained. Total of 3 images of the right shoulder were provided. Dual lead left-sided pacemaker is present. Sternal wires noted. The esophagus evident. Cardiomegaly noted. No infiltrates although evaluation is limited in the retrocardiac region. No pneumothorax. Glenohumeral joint is unremarkable. Mild right acromioclavicular joint space narrowing. No fracture or bone obstruction. Impression: Cardiomegaly. No suspicious process. No significant right shoulder degenerative findings. Electronically signed by: Amador Gutierrez MD (01/05/2020 6:43 PM) [facility] DICTATED and SIGNED BY: AMADOR GUTIERREZ MD DATE: 01/05/201842 Course & Med Decision Making: Course & Med Decision Making Pertinent Labs and Imaging studies reviewed. (See chart for details) [] 64-year-old female presents with right shoulder pain that is been constant for 3 weeks on the posterior shoulder that radiates to the chest. Symptoms are very atypical for acute coronary syndrome. Patient is on home O2 and oxygen level seems to be at baseline. Does not seem in any distress and has reproducible pain in her posterior chest wall. Doubt acute coronary syndrome or pulmonary embolism. On my reassessment patient is resting comfortably. Patient did have some mild hypoglycemia was given p.o. juice and her sugar improved to the 90s. Dragon Disclaimer: Hakeem Disclaimer: This electronic medical record was generated, in whole or in part, using a voice recognition dictation system. Departure Departure Impression: Primary Impression: Right shoulder pain Disposition: 01 DC HOME SELF CARE/HOMELESS Condition: STABLE Referrals: JENSEN CUEVAS (PCP) 2 to 3 days Patient Instructions: Shoulder Pain Additional Instructions: EMERGENCY DEPARTMENT GENERAL DISCHARGE INSTRUCTIONS THANK YOU for coming to [facility] Emergency Department (ED) today and trusting us with your care. We trust that you had a positive experience in our Emergency Department. If you wish to speak to the department Management you can contact the winding department supervisor at . YOUR FOLLOW UP INSTRUCTIONS ARE FOLLOWS: Do you have a private doctor? If you do not have a private doctor, please ask for a resource list of physicians or clinics that may be able to assist you with follow up care. The Emergency Physician has interpreted your x-rays. The X-ray specialist will also review them. If there is a change in the findings you will be notified in 48 hours when at all possible. A lab test or lab culture may have been done, your results will be reviewed and you will be notified if you need a change in treatment. ADDITIONAL INSTRUCTIONS AND INFORMATION Your care today has been supervised by a physician who is specially trained in emergency care. Many problems require more than one evaluation for a complete diagnosis and treatment. We recommend that you schedule your follow up appointment as recommended to ensure complete treatment of your illness or injury. If you are unable to obtain follow up care and continue to have a problem, or if your condition worsens we recommend that you return to the ED. We are not able to safely determine your condition over the phone nor are we able to give sound medical advice over the phone. For these safety reasons, if you call for medical advice we will ask you to come to the ED for further evaluation If you have any questions regarding these discharge instructions please call the ED at . SAFETY INFORMATION In the interest of safety, wellness, and injury prevention; we encourage you to wear your seatbelt, if you smoke; quit smoking, and we encourage your family to use protective helmet for bicycling and other sporting events that present an increased risk for head injury. IF YOUR SYMPTOMS WORSEN OR NEW SYMPTOMS DEVELOP, OR YOU HAVE CONCERNS ABOUT YOUR CONDITION; OR IF YOUR CONDITION WORSENS WHILE YOU ARE WAITING FOR YOUR FOLLOW UP APPOINTMENT; EITHER CONTACT YOUR PRIMARY CARE DOCTOR, THE PHYSICIAN WHOSE NAME AND NUMBER YOU WERE GIVEN, OR RETURN TO THE ED IMMEDIATELY. AUDIE BONNER MD Jan 05, 2020 18:11
[2020-01-05 18:20] LABS: BILIRUBIN,URINE NEGATIVE (NEG); CLARITY,URINE CLEAR; COLOR,URINE YELLOW; NITRITE,URINE NEGATIVE (NEG); PROTEIN,URINE NEGATIVE (NEG-TRACE)
[2020-01-05] MEDS ORDERED: KETOROLAC 15 MG/ML VIAL. IVP ONE (18:30)
[2020-01-05 18:31] LABS: BACTERIA,URINE 0 /HPF (0-FEW); RBC,URINE 0 /HPF (0-2); WBC,URINE 0 /HPF (0-4)
--- NOTE | 2020-01-05 18:45 | RAD ---
Examination: SHOULDER 2+V RIGHT, PORTABLE CHEST 1V History: Reason: r shoulde pain / Spl. Instructions: / History: Comparison/Correlation: 12/09/2019 Findings: Portable upright frontal view of the chest was obtained. Total of 3 images of the right shoulder were provided. Dual lead left-sided pacemaker is present. Sternal wires noted. The esophagus evident. Cardiomegaly noted. No infiltrates although evaluation is limited in the retrocardiac region. No pneumothorax. Glenohumeral joint is unremarkable. Mild right acromioclavicular joint space narrowing. No fracture or bone obstruction. Impression: Cardiomegaly. No suspicious process. No significant right shoulder degenerative findings. Electronically signed by: Amador Corbett MD (01/05/2020 6:43 PM) [facility]
[2020-01-05 19:10] LABS: BASO % 1 % (0-3); EOS % 0 % (0-3); HEMATOCRIT 34.9 % (36.0-47.0); LYMPH # 0.9 x10^3/uL (1.0-4.8); LYMPH % 11 % (24-48); MEAN CORPUSCULAR HEMOGLOBIN 26 pg (25-35); MEAN CORPUSCULAR HGB CONC 32 g/dL (31-37); MEAN CORPUSCULAR VOLUME 82 fL (79-100); MONO # 0.6 x10^3/uL (0.0-1.1); MONO % 8 % (0-9); NEUT # 6.6 x10^3/uL (1.8-7.7); NEUT % 80 % (31-73); PLATELET COUNT 286 x10^3/uL (140-400); RED BLOOD COUNT 4.28 x10^6/uL (3.50-5.40); RED CELL DISTRIBUTION WIDTH 22.6 % (11.5-14.5); WHITE BLOOD COUNT 8.2 x10^3/uL (4.0-11.0)
[2020-01-05 19:17] LABS: CALCIUM 10.5 mg/dL (8.5-10.1); CREATININE 0.9 mg/dL (0.6-1.0); POTASSIUM 4.8 mmol/L (3.5-5.1)
[2020-01-05 19:21] LABS: PROTHROMBIN TIME PATIENT 13.6 SEC (11.7-14.0)
[2020-01-05 19:22] LABS: ALBUMIN 3.5 g/dL (3.4-5.0); ALBUMIN/GLOBULIN RATIO 0.7 (1.0-1.7); TOTAL BILIRUBIN 0.4 mg/dL (0.2-1.0); TOTAL PROTEIN 8.4 g/dL (6.4-8.2)
[2020-01-05] MEDS ORDERED: ONDANSETRON ODT 4 MG TAB.RAPDIS. PO ONE (19:30)
[2020-01-05 19:38] LABS: ANISOCYTOSIS MOD; HYPOCHROMIA SLIGHT; PLT ESTIMATE ADEQUATE (ADEQUATE)
[2020-01-05 19:39] LABS: HELMET CELLS OCC; OVALOCYTES MOD
[2020-01-05 19:40] LABS: POIKILOCYTOSIS SLIGHT; SPHEROCYTES OCC
[2020-01-05 21:22] VITALS: BP 145/64
--- NOTE | 2020-01-06 05:23 | EKG ---
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
== END 2020-01-05 21:35 | disposition home or self-care (01) ==
LOC: ER 15:31
DX: M25.511 Pain in right shoulder (principal); M54.6 Pain in thoracic spine; R07.89 Other chest pain; R06.02 Shortness of breath; J44.9 Chronic obstructive pulmonary disease, unspecified; E11.40 Type 2 diabetes mellitus with diabetic neuropathy, unspecified; I50.9 Heart failure, unspecified; G89.29 Other chronic pain; Z98.890 Other specified postprocedural states
CPT/HCPCS: 36415; 71045; 73030; 80053; 81001; 82962; 83690; 83880; 84484; 85025; 85610; 85730; 93005; 96374; 99285; J1885

== ENCOUNTER 2020-01-08 12:06 | Observation (INO) | payer MEDICARE, MEDICAID ==
[~2020-01-08] VITALS: Ht 162.6 cm; Wt 101.0 kg
[2020-01-08 12:48] LABS: BASO % 1 % (0-3); EOS # 0.1 x10^3/uL (0.0-0.7); EOS % 1 % (0-3); HEMATOCRIT 35.1 % (36.0-47.0); LYMPH % 15 % (24-48); MEAN CORPUSCULAR HEMOGLOBIN 26 pg (25-35); MEAN CORPUSCULAR HGB CONC 32 g/dL (31-37); MEAN CORPUSCULAR VOLUME 82 fL (79-100); MONO # 0.5 x10^3/uL (0.0-1.1); MONO % 8 % (0-9); NEUT # 4.7 x10^3/uL (1.8-7.7); NEUT % 75 % (31-73); PLATELET COUNT 269 x10^3/uL (140-400); RED BLOOD COUNT 4.26 x10^6/uL (3.50-5.40); WHITE BLOOD COUNT 6.3 x10^3/uL (4.0-11.0)
[2020-01-08 12:53] LABS: CALCIUM 9.7 mg/dL (8.5-10.1); GFR 67.3; POTASSIUM 4.8 mmol/L (3.5-5.1)
--- NOTE | 2020-01-08 13:01 | RAD ---
AP portable chest radiograph 01/08/2020 Clinical History: Chest pain. An AP erect portable digital radiograph of the chest was obtained. Comparison study is dated 01/05/2020. The left-sided pacemaker is unchanged position. The patient is post CABG procedure. The cardiac silhouette is mildly enlarged. Atherosclerotic calcification of the thoracic aorta is seen. The thoracic aorta is mildly tortuous. No acute pulmonary infiltrate is seen. No pneumothorax or pleural effusion is noted. The osseous structures are unchanged. Impression: No acute abnormality is seen. Electronically signed by: Joseph Moss MD (01/08/2020 12:58 PM) [id number]
[2020-01-08] MEDS ORDERED: KETOROLAC 30 MG/ML VIAL. IVP ONE (15:00)
[2020-01-08] MEDS ORDERED: ONDANSETRON PF 4 MG/2 ML VIAL. IVP ONE (15:00)
[2020-01-08] MEDS ORDERED: CONTRAST GIVEN. MC PRN (15:15)
[2020-01-08] MEDS ORDERED: IOHEXOL 350 MG/ML 100 ML VIAL. IV ONE (15:15)
--- NOTE | 2020-01-08 16:13 | RAD ---
Exam: CT of chest with contrast INDICATION: Shortness of breath, chest pain TECHNIQUE: Sequential axial images through the chest obtained following the administration 100 mL of Omni 350 IV contrast. Sagittal and coronal reformatted images were reconstructed from the axial data and reviewed. 3-D reformatted images were reconstructed from the axial data and reviewed. Comparisons: Chest x-ray same day FINDINGS: Visualized portions of the thyroid are unremarkable. No enlarged mediastinal lymph nodes are identified. Heart is mildly enlarged. Pacer with lead terminating in the right heart. No pericardial effusion. Mild coronary artery calcifications are noted. Thoracic aorta has a normal course and caliber. Pulmonary artery is not enlarged. No pulmonary embolus is identified within the main or lobar pulmonary arteries. Evaluation distally is limited secondary to extensive respiratory motion. Airways are patent. No consolidation or pneumothorax. No suspicious lung nodules are identified. No pleural effusion or thickening. Visualized upper abdomen is unremarkable. No suspicious osseous lesions or acute fractures. IMPRESSION: 1. No pulmonary embolus identified within the main or lobar pulmonary arteries. Limitations as described above. 2. Cardiomegaly with mild coronary artery calcifications. Exposure: One or more of the following in the visualized dose reduction techniques were utilized for this examination: 1. Automated exposure control 2. Adjustment of the MA and/or KV according to patient size 3. Use of iterative of reconstructive technique Electronically signed by: Kunal Fu MD (01/08/2020 4:10 PM) [id number]
--- NOTE | 2020-01-08 17:31 | ED.ADGEN ---
Past Medical History Past Medical History: CHF, COPD, Diabetes-Type II, Other Additional Past Medical Histor: O2 @3 L PRN, chronic pain, NEUROPATHY Past Surgical History: Other Additional Past Surgical Histo: HERNIA REPAIR, CABG X 2 VESSELS Smoking Status: Never Smoker Alcohol Use: None Drug Use: None General Adult EDM: Chief Complaint: CHEST PAIN HPI: HPI: Patient is 64-year-old female with past medical history of congestive heart failure who presents to the emergency room with atypical right-sided chest pain that radiates into her right shoulder. This is been constant for several days. She has some associated shortness of breath. She has had similar symptoms in the past. She was evaluated here earlier this week for the same symptoms at gianluca t time everything was normal. Pain is worse with deep breathing. Pain feels like a pressure or tightness. Review of Systems: Review of Systems: General: Denies fever, chills, sweats, fatigue Eyes: Denies drainage, blurred vision, eye redness HENT: Denies rhinorrhea, sore throat, earache Respiratory: Denies cough, wheezing. Reports shortness of breath Cardiac: Denies edema, palpitations. Reports chest pain GI: Denies abdominal pain, Nausea, vomiting MSK: Denies back pain, neck pain Skin: Denies rash, jaundice Neuro: Denies headache, dizziness Psychiatric: Denies SI/HI Current Medications: Current Medications Medications (Trade) Dose Ordered Sig/Susan Start Time Stop Time Status Last Admin Dose Admin Info (CONTRAST GIVEN -- Rx MONITORING) 1 each PRN DAILY PRN 01/08/20 15:15 01/10/20 15:14 Iohexol (Omnipaque 350 Mg/ml) 100 ml 1X ONCE 01/08/20 15:15 01/08/20 15:16 DC 01/08/20 15:07 100 ML Ketorolac Tromethamine (Toradol 30mg Vial) 30 mg 1X ONCE 01/08/20 15:00 01/08/20 15:01 DC 01/08/20 14:59 30 MG Ondansetron HCl (Zofran) 4 mg 1X ONCE 01/08/20 15:00 01/08/20 15:01 DC 01/08/20 14:58 4 MG Allergies: Allergies: Allergies Coded Allergies Type Severity Reaction Last Updated Verified No Known Drug Allergies 03/13/19 No Physical Exam: PE: General: Awake, alert, NAD. Well Nourished, well hydrated. Cooperative HEENT: Atraumatic, EOMI, PERRL, airway patent, moist oral mucosa Neck: Supple, trachea midline Respiratory: CTA bilaterally, normal effort, no wheezing/crackles CV: RRR, no murmur, cap refill <2 GI: Soft, nondistended, nontender, no masses MSK: No obvious deformities Skin: Warm, dry, intact Neuro: A&O x3, speech NL, sensory and motor grossly intact, no focal deficits Psych: Normal affect, normal mood, not suicidal or homicidal Current Patient Data: Labs: Laboratory Tests Test 01/08/20 12:32 White Blood Count 6.3 x10^3/uL (4.0-11.0) Red Blood Count 4.26 x10^6/uL (3.50-5.40) Hemoglobin 11.0 g/dL (12.0-15.5) L Hematocrit 35.1 % (36.0-47.0) L Mean Corpuscular Volume 82 fL (79-100) Mean Corpuscular Hemoglobin 26 pg (25-35) Mean Corpuscular Hemoglobin Concent 32 g/dL (31-37) Red Cell Distribution Width 22.0 % (11.5-14.5) H Platelet Count 269 x10^3/uL (140-400) Neutrophils (%) (Auto) 75 % (31-73) H Lymphocytes (%) (Auto) 15 % (24-48) L Monocytes (%) (Auto) 8 % (0-9) Eosinophils (%) (Auto) 1 % (0-3) Basophils (%) (Auto) 1 % (0-3) Neutrophils # (Auto) 4.7 x10^3/uL (1.8-7.7) Lymphocytes # (Auto) 1.0 x10^3/uL (1.0-4.8) Monocytes # (Auto) 0.5 x10^3/uL (0.0-1.1) Eosinophils # (Auto) 0.1 x10^3/uL (0.0-0.7) Basophils # (Auto) 0.0 x10^3/uL (0.0-0.2) Sodium Level 139 mmol/L (136-145) Potassium Level 4.8 mmol/L (3.5-5.1) Chloride Level 99 mmol/L (98-107) Carbon Dioxide Level 34 mmol/L (21-32) H Anion Gap 6 (6-14) Blood Urea Nitrogen 15 mg/dL (7-20) Creatinine 1.0 mg/dL (0.6-1.0) Estimated GFR (Cockcroft-Gault) 67.3 Glucose Level 67 mg/dL (70-99) L Calcium Level 9.7 mg/dL (8.5-10.1) Troponin I Quantitative < 0.017 ng/mL (0.000-0.055) EC-Kkv-M-Type Natriuretic Peptide 1458 pg/mL (0-124) H Laboratory Tests 01/08/20 12:32 Laboratory Tests 01/08/20 12:32 Vital Signs: Vital Signs Date Time Temp Pulse Resp B/P (MAP) Pulse Ox O2 Delivery O2 Flow Rate FiO2 01/08/20 17:00 60 180/84 (116) 99 Nasal Cannula 2.0 01/08/20 12:16 98.0 20 98.0 EKG: EKG: [] Heart Score: Risk Factors: Risk Factors: DM, Current or recent (<one month) smoker, HTN, HLP, family history of CAD, obesity. Risk Scores: Score 0 - 3: 2.5% MACE over next 6 weeks - Discharge Home Score 4 - 6: 20.3% MACE over next 6 weeks - Admit for Clinical Observation Score 7 - 10: 72.7% MACE over next 6 weeks - Early Invasive Strategies Radiology/Procedures: Radiology/Procedures: [] Course & Med Decision Making: Course & Med Decision Making Pertinent Labs and Imaging studies reviewed. (See chart for details) Patient is 64-year-old female who presents to the emergency room with atypical right-sided chest wall pain. It is likely that this is secondary to musculoskeletal. However this is the patient's second visit in the last week for the same pain. It is pleuritic in nature and she has a sedentary lifestyle. She also has multiple risk factors. CT angio was done to rule out a pulmonary embolism or unseen pulmonary edema. CT is negative. Work-up is negative. I have discussed the results with the patient. She is very insistent that something is wrong and would like to be admitted for evaluation as she feels that there is something wrong with her heart. She will be admitted for observation. Hakeem Disclaimer: Hakeem Disclaimer: This electronic medical record was generated, in whole or in part, using a voice recognition dictation system. Departure Departure Impression: Primary Impression: Chest pain Disposition: 09 ADMITTED INPT THIS HOSP Condition: STABLE Referrals: JENSEN CUEVAS (PCP) EVELIA JUAREZ MD Jan 08, 2020 17:31
[2020-01-08 20:10] VITALS: BP 187/91
--- NOTE | 2020-01-08 20:15 | NUR ---
PT ADMITTED TO ROOM 211 FROM ER PT AMBULATED TO BED WITH STANDBY ASSIST AND WALKER. PT ALERT AND ORIENTED X4, C/O GENERALIZED DISCOMFORT. PT ORIENTED TO UNIT, STAFF AND POC. ASSESSMENT AND HISTORY COMPLETE SEE CHARTING. DR BUCHANAN PAGED TO RESTART HOME MEDICATION AND BP ELEVATION. CALL LIGHT IN PLACE WILL CONT TO MONITOR PT STATUS AND SAFETY. PMRN
--- NOTE | 2020-01-08 21:10 | NUR ---
ORDER GIVEN PER DR BUCHANAN TO RESUME HOME MEDICATIONS, PT BLOOD SUGAR 64 LANTUS HELD. WILL CONT TO MONITOR PT STATUS AND SAFETY. PMRN
[2020-01-08] MEDS ORDERED: ISOS30TA4 PO (22:04)
[2020-01-08] MEDS ORDERED: CARV25TA2 PO (22:04)
[2020-01-08] MEDS ORDERED: BUME2TAB3 PO (22:04)
[2020-01-08] MEDS ORDERED: OXYC1TAB22 PO (22:04)
[2020-01-08] MEDS ORDERED: POTA20TA4 PO (22:04)
[2020-01-08] MEDS ORDERED: SPIR50TA4 PO (22:04)
[2020-01-08] MEDS ORDERED: TRAZ-118 PO (22:04)
[2020-01-08] MEDS ORDERED: INSU100I13 SQ (22:04)
[2020-01-08] MEDS ORDERED: VENTOLIN HFA18 GM INH (22:04)
[2020-01-08] MEDS ORDERED: AMLO-187 PO (22:04)
[2020-01-08] MEDS ORDERED: CLONAZEPAM1 MG PO (22:04)
[2020-01-08] MEDS ORDERED: NITROGLYCERIN SUBLINGUAL 0.4 MG BOTTLE OF 25. SL PRN (22:45)
[2020-01-08] MEDS ORDERED: NON FORMULARY ITEM (Albuterol Sulfate (Ventolin Hfa Inhaler) 2 PUFF) INH SCH (22:45)
[2020-01-08] MEDS ORDERED: INSULIN GLARGINE SYRINGE. SQ SCH (23:00)
[2020-01-08] MEDS ORDERED: clonazePAM 0.5 MG TABLET PO SCH (23:00)
[2020-01-08] MEDS ORDERED: ATORVASTATIN CALCIUM 20 MG TABLET PO SCH (23:00)
[2020-01-08] MEDS ORDERED: traZODone 50 MG TABLET. PO SCH (23:00)
[2020-01-08] MEDS ORDERED: amLODIPine BESYLATE 10 MG TABLET PO ONE (23:00)
[2020-01-08] MEDS ORDERED: SPIRONOLACTONE 25 MG TABLET PO SCH (23:00)
[2020-01-08] MEDS ORDERED: ALBUTEROL SULFATE 2.5 MG/3 ML NEBU. NEB PRN (23:15)
[2020-01-08 23:20] VITALS: BP 153/60
[2020-01-08] MEDS: oxyCODONE/APAP 10/325 1 TAB TABLET PO PRN (23:20)
[2020-01-09 03:15] VITALS: BP 160/48
[2020-01-09] MEDS: oxyCODONE/APAP 10/325 1 TAB TABLET PO PRN ×4 (05:27→19:05)
[2020-01-09 07:00] VITALS: BP 137/41
[2020-01-09] MEDS ORDERED: PANTOPRAZOLE 40 MG TABLET.DR. PO SCH (07:30)
[2020-01-09] MEDS ORDERED: ASPIRIN ENTERIC COATED 81 MG TABLET.DR. PO SCH (08:00)
[2020-01-09] MEDS ORDERED: ONDANSETRON PF 4 MG/2 ML VIAL. IV PRN (08:00)
[2020-01-09] MEDS ORDERED: ACETAMINOPHEN 325 MG TABLET. PO PRN (08:00)
--- NOTE | 2020-01-09 08:00 | PDOC1 ---
History and Physical Date of Admission Date of Admission DATE: 01/09/20 TIME: 07:43 Identification/Chief Complaint Chief Complaint Shortness of breath Source Source: Patient History of Present Illness History of Present Illness Ms Laguna is a 64yo F w/ PMHx HTN, SSS, HLD, obesity, chronic pain syndrome, chronic systolic CHF, cor pulmonale with hypoxia on 3L NCO2 who presented with acute chest pain and right shoulder pain with worsening shortness of breath. C/o vomiting x1 prior to arrival, but asked for food upon arrival. Right shoulder pain that has been present for 3 weeks she was seen in the ED on 1014 and again on 101 for this and admitted on 101 last night. States she was just sitting there and it hurts to sleep on the right side. No rashes. Denies nausea, diarrhea, abdominal pain, diarrhea, dysuria, fever. She also endorses chest tightness that is baseline, worse with deep breath. Patient is on diuretics at home of Bumex 2 mg twice daily. She has multiple admissions in the past. She has been admitted frequently for chest pain with [facility] 04/2018 CXR with no acute abnormalities, pacer in place. CTPA with cardiomegaly and coronary artery calcifications, no abnormalities, no right shoulder abnormalities. Labs significant for WBC 6.3 Hb 11 platelets 269 NA [id number] BUN 15 CR 1 glucose 67 BNP 1458 troponins 03. Was admitted for further observation. Past Medical History Cardiovascular: CAD, CHF, HTN, SC, Hyperlipidemia, Other Pulmonary: Bronchitis, COPD CENTRAL NERVOUS SYSTEM: Periperal neuropathy GI: GERD Heme/Onc: No pertinent hx Hepatobiliary: Cholelithiasis Psych: No pertinent hx Musculoskeletal: Osteoarthritis, Weakness Rheumatologic: No pertinent hx Infectious disease: No pertinent hx Renal/: Chronic renal insuff Endocrine: Diabetes Past Surgical History Past Surgical History: Pacemaker, Appendectomy, Cholecystectomy, CABG, Total knee replacement, Hysterectomy Family History Family History: Heart Disease Family History: Parent Social History Smoke: No ALCOHOL: none Drugs: None Current Problem List Problem List Problems Medical Problems: (1) Chest pain Status: Acute Current Medications Current Medications Current Medications Ketorolac Tromethamine (Toradol 30mg Vial) 30 mg 1X ONCE IVP Last administered on 01/08/20at 14:59; Start 01/08/20 at 15:00; Stop 01/08/20 at 15:01; Status DC Ondansetron HCl (Zofran) 4 mg 1X ONCE IVP Last administered on 01/08/20at 14:58; Start 01/08/20 at 15:00; Stop 01/08/20 at 15:01; Status DC Iohexol (Omnipaque 350 Mg/ml) 100 ml 1X ONCE IV Last administered on 01/08/20at 15:07; Start 01/08/20 at 15:15; Stop 01/08/20 at 15:16; Status DC Info (CONTRAST GIVEN -- Rx MONITORING) 1 each PRN DAILY PRN MC SEE COMMENTS; Start 01/08/20 at 15:15; Stop 01/10/20 at 15:14 Influenza Virus Vaccine Quadrival (Fluzone Quad Syringe) 0.5 ml ONCE ONCE VAX IM ; Start 01/09/20 at 09:00; Stop 01/09/20 at 09:01 Aspirin (Ecotrin) 81 mg DAILYWBKFT PO ; Start 01/09/20 at 08:00 Atorvastatin Calcium (Lipitor) 20 mg HS PO Last administered on 01/08/20at 23:19; Start 01/08/20 at 23:00 Calcium/Vitamin D (Oscal D 500mg/ 200uts) 1 tab DAILY PO ; Start 01/09/20 at 09:00 Capsaicin (Zostrix) 60 tre TID TP ; Start 01/09/20 at 09:00 Clopidogrel Bisulfate (Plavix) 75 mg DAILY PO ; Start 01/09/20 at 09:00 Fluoxetine HCl (PROzac) 20 mg DAILY PO ; Start 01/09/20 at 09:00 Glimepiride (Amaryl) 2 mg DAILY PO ; Start 01/09/20 at 09:00 Isosorbide Mononitrate (Imdur) 30 mg DAILY PO ; Start 01/09/20 at 09:00 Nitroglycerin (Nitrostat) 0.4 mg PRN Q5MIN PRN SL CHEST PAIN; Start 01/08/20 at 22:45 Oxycodone/ Acetaminophen (Percocet 10/325) 1 tab PRN Q6HRS PRN PO PAIN Last administered on 01/09/20at 05:27; Start 01/08/20 at 22:45 Pantoprazole Sodium (Protonix) 40 mg DAILYAC PO ; Start 01/09/20 at 07:30 Potassium Chloride (Klor-Con) 20 meq BIDWMEALS PO ; Start 01/09/20 at 08:00 Trazodone HCl (Desyrel) 50 mg HS PO Last administered on 01/08/20at 23:18; Start 01/08/20 at 23:00 Non-Formulary Medication (Albuterol Sulfate (Ventolin Hfa Inhaler)) 2 puff [id number] INH ; Start 01/08/20 at 22:45; Status UNV Bumetanide (Bumex) 2 mg BID92 PO ; Start 01/09/20 at 09:00 Carvedilol (Coreg) 12.5 mg BIDWMEALS PO ; Start 01/09/20 at 08:00 Clonazepam (KlonoPIN) 0.5 mg TID PO ; Start 01/08/20 at 23:00 Non-Formulary Medication (Insulin Glargine,Hum.rec.anlog (Lantus Solostar)) 8 unit QHS SQ ; Start 01/09/20 at 21:00; Status UNV Losartan Potassium (Cozaar) 100 mg DAILY PO ; Start 01/09/20 at 09:00 Spironolactone (Aldactone) 50 mg HS PO Last administered on 01/08/20at 23:17; Start 01/08/20 at 23:00 Amlodipine Besylate (Norvasc) 10 mg 1X ONCE PO Last administered on 01/08/20at 23:19; Start 01/08/20 at 23:00; Stop 01/08/20 at 23:01; Status DC Atorvastatin Calcium (Lipitor) 20 mg QHS ONCE PO ; Start 01/09/20 at 21:00; Stop 01/09/20 at 21:01; Status UNV Trazodone HCl (Desyrel) 50 mg QHS PO ; Start 01/09/20 at 21:00; Status UNV Spironolactone (Aldactone) 50 mg DAILY ONCE PO ; Start 01/09/20 at 09:00; Stop 01/09/20 at 09:01; Status UNV Insulin Glargine (Lantus Syringe) 8 unit QHS SQ ; Start 01/08/20 at 23:00 Albuterol Sulfate (Ventolin Neb Soln) 2.5 mg PRN Q6HRS PRN NEB SHORTNESS OF BREATH; Start 01/08/20 at 23:15 Active Scripts Active Protonix (Pantoprazole Sodium) 40 Mg Tablet.dr 40 Mg PO DAILYAC 60 Days Amaryl (Glimepiride) 2 Mg Tablet 2 Mg PO DAILY 30 Days Reported Amlodipine Besylate 10 Mg Tablet 10 Mg PO X1 PRN Ventolin Hfa Inhaler (Albuterol Sulfate) 18 Gm Hfa.aer.ad 2 Puff INH S5DEBAET Clonazepam 1 Mg Tablet 0.5 Mg PO TID Bumetanide 2 Mg Tablet 2 Mg PO BID Trazodone Hcl 50 Mg Tablet 50 Mg PO HS Spironolactone 50 Mg Tablet 50 Mg PO HS Potassium Chloride (Potassium Chloride) 20 Meq Tablet.er 20 Meq PO BIDWMEALS Percocet 10-325 Mg Tablet (Oxycodone/Acetaminophen) 1 Each Tablet 1 Tab PO PRN Q6HRS PRN Carvedilol 25 Mg Tablet 12.5 Mg PO BIDWMEALS Lantus Solostar (Insulin Glargine,Hum.rec.anlog) 100 Unit/1 Ml Insuln.pen 8 Unit SQ QHS Isosorbide Mononitrate Er (Isosorbide Mononitrate) 30 Mg Tab.er.24h 30 Mg PO DAILY Clopidogrel (Clopidogrel Bisulfate) 75 Mg Tablet 75 Mg PO DAILY Losartan Potassium 100 Mg Tablet 100 Mg PO DAILY Capsaicin 60 Gm Cream..g. 60 Gm TP TID apply to morgan feet Calcium 500 + Vit D 200 Caplet (Calcium Carbonate/Vitamin D3) 1 Each Tablet 1 Each PO DAILY Fluoxetine Hcl 20 Mg Capsule 1 Cap PO DAILY NITROGLYCERIN SubLingual (Nitroglycerin) 0.4 Mg Tab.subl 0.4 Mg SL PRN Q5MIN PRN Atorvastatin Calcium 20 Mg Tablet 20 Mg PO HS Aspir 81 (Aspirin) 81 Mg Tablet.dr 1 Tab PO DAILY Allergies Allergies: Coded Allergies: No Known Drug Allergies (Unverified , 03/13/19) ROS General: YES: Fatigue, Malaise; No: Chills, Night Sweats, Appetite, Other PSYCHOLOGICAL ROS: No: Anxiety, Behavioral Disorder, Concentration difficultie, Decreased libido, Depression, Disorientation, Hallucinations, Hostility, Irritablity, Memory difficulties, Mood Swings, Obsessive thoughts, Physical abuse, Sexual abuse, Sleep disturbances, Suicidal ideation, Other Eyes: No Blurry vision, No Decreased vision, No Double vision, No Dry eyes, No Excessive tearing, No Eye Pain, No Itchy Eyes, No Loss of vision, No Photophobia, No Scotomata, No Uses contacts, No Uses glasses, No Other HEENT: No: Heacaches, Visual Changes, Hearing change, Nasal congestion, Nasal discharge, Oral lesions, Sinus pain, Sore Throat, Epistaxis, Sneezing, Snoring, Tinnitus, Vertigo, Vocal changes, Other ALLERGY AND IMMUNOLOGY: No: Hives, Insect Bite Sensitivity, Itchy/Watery Eyes, Nasal Congestion, Post Nasal Drip, Seasonal Allergies, Other Hematological and Lymphatic: No: Bleeding Problems, Blood Clots, Blood Transfusions, Brusing, Night Sweats, Pallor, Swollen Lymph Nodes, Other ENDOCRINE: No: Breast Changes, Galactorrhea, Hair Pattern Changes, Hot Flashes, Malaise/lethargy, Mood Swings, Palpitations, Polydipsia/polyuria, Skin Changes, Temperature Intolerance, Unexpected Weight Changes, Other Breast: No New/Changing Breast Lumps, No Nipple changes, No Nipple discharge, No Other Respiratory: YES: Shortness of breath; No: Cough, Hemoptysis, Orthopnea, Pleuritic Pain, SOB with excertion, Sputum Changes, Stridor, Tachypnea, Wheezing, Other Cardiovascular: yes Chest Pain; No Palpitations, No Orthopnea, No Paroxysmal Noc. Dyspnea, No Edema, No Lt Headedness, No Other Gastrointestinal: Yes Vomiting; No Nausea, No Abdominal Pain, No Diarrhea, No Constipation, No Melena, No Hematochezia, No Other Genitourinary: No Dysuria, No Frequency, No Incontinence, No Hematuria, No Retention, No Discharge, No Urgency, No Pain, No Flank Pain, No Other, No , No , No , No , No , No , No Musculoskeletal: No Gait Disturbance, No Joint Pain, No Joint Stiffness, No Joint Swelling, No Muscle Pain, No Muscular Weakness, No Pain In:, No Swelling In:, No Other Neurological: No Behavorial Changes, No Bowel/Bladder ControlChng, No Confusion, No Dizziness, No Gait Disturbance, No Headaches, No Impaired Coord/balance, No Memory Loss, No Numbness/Tingling, No Seizures, No Speech Problems, No Tremors, No Visual Changes, No Weakness, No Other Skin: No Dry Skin, No Eczema, No Hair Changes, No Lumps, No Mole Changes, No Mottling, No Nail Changes, No Pruritus, No Rash, No Skin Lesion Changes, No Other, No Acne Physical Exam General: Alert, Oriented X3, Cooperative, No acute distress HEENT: Atraumatic, PERRLA, EOMI, Mucous membr. moist/pink Lungs: Clear to auscultation Heart: S1S2, RRR, no thrills, no rubs, no gallops, no murmurs Extremities: No clubbing, No cyanosis, No edema, Normal pulses, Other (Right shoulder pain on internal rotation) Skin: No rashes, No breakdown, No significant lesion Neuro: Normal gait, Normal speech, Strength at 5/5 X4 ext, Normal tone, Sensation intact, Cranial nerves 3-12 NL, Reflexes 2+ Psych/Mental Status: Mental status NL, Mood NL Vitals Vitals Vital Signs Date Time Temp Pulse Resp B/P (MAP) Pulse Ox O2 Delivery O2 Flow Rate FiO2 01/09/20 05:27 Nasal Cannula 2.0 01/09/20 03:15 98.3 61 20 160/48 (85) 98 98.3 Labs Labs Laboratory Tests Test 01/08/20 12:32 01/08/20 20:40 01/08/20 21:28 01/09/20 07:38 White Blood Count 6.3 x10^3/uL (4.0-11.0) Red Blood Count 4.26 x10^6/uL (3.50-5.40) Hemoglobin 11.0 g/dL (12.0-15.5) Hematocrit 35.1 % (36.0-47.0) Mean Corpuscular Volume 82 fL (79-100) Mean Corpuscular Hemoglobin 26 pg (25-35) Mean Corpuscular Hemoglobin Concent 32 g/dL (31-37) Red Cell Distribution Width 22.0 % (11.5-14.5) Platelet Count 269 x10^3/uL (140-400) Neutrophils (%) (Auto) 75 % (31-73) Lymphocytes (%) (Auto) 15 % (24-48) Monocytes (%) (Auto) 8 % (0-9) Eosinophils (%) (Auto) 1 % (0-3) Basophils (%) (Auto) 1 % (0-3) Neutrophils # (Auto) 4.7 x10^3/uL (1.8-7.7) Lymphocytes # (Auto) 1.0 x10^3/uL (1.0-4.8) Monocytes # (Auto) 0.5 x10^3/uL (0.0-1.1) Eosinophils # (Auto) 0.1 x10^3/uL (0.0-0.7) Basophils # (Auto) 0.0 x10^3/uL (0.0-0.2) Sodium Level 139 mmol/L (136-145) Potassium Level 4.8 mmol/L (3.5-5.1) Chloride Level 99 mmol/L (98-107) Carbon Dioxide Level 34 mmol/L (21-32) Anion Gap 6 (6-14) Blood Urea Nitrogen 15 mg/dL (7-20) Creatinine 1.0 mg/dL (0.6-1.0) Estimated GFR (Cockcroft-Gault) 67.3 Glucose Level 67 mg/dL (70-99) Calcium Level 9.7 mg/dL (8.5-10.1) Troponin I Quantitative < 0.017 ng/mL (0.000-0.055) MU-Byf-D-Type Natriuretic Peptide 1458 pg/mL (0-124) Glucose (Fingerstick) 64 mg/dL (70-99) 126 mg/dL (70-99) 87 mg/dL (70-99) Laboratory Tests Test 01/08/20 12:32 01/08/20 20:40 01/08/20 21:28 01/09/20 07:38 White Blood Count 6.3 x10^3/uL (4.0-11.0) Red Blood Count 4.26 x10^6/uL (3.50-5.40) Hemoglobin 11.0 g/dL (12.0-15.5) Hematocrit 35.1 % (36.0-47.0) Mean Corpuscular Volume 82 fL (79-100) Mean Corpuscular Hemoglobin 26 pg (25-35) Mean Corpuscular Hemoglobin Concent 32 g/dL (31-37) Red Cell Distribution Width 22.0 % (11.5-14.5) Platelet Count 269 x10^3/uL (140-400) Neutrophils (%) (Auto) 75 % (31-73) Lymphocytes (%) (Auto) 15 % (24-48) Monocytes (%) (Auto) 8 % (0-9) Eosinophils (%) (Auto) 1 % (0-3) Basophils (%) (Auto) 1 % (0-3) Neutrophils # (Auto) 4.7 x10^3/uL (1.8-7.7) Lymphocytes # (Auto) 1.0 x10^3/uL (1.0-4.8) Monocytes # (Auto) 0.5 x10^3/uL (0.0-1.1) Eosinophils # (Auto) 0.1 x10^3/uL (0.0-0.7) Basophils # (Auto) 0.0 x10^3/uL (0.0-0.2) Sodium Level 139 mmol/L (136-145) Potassium Level 4.8 mmol/L (3.5-5.1) Chloride Level 99 mmol/L (98-107) Carbon Dioxide Level 34 mmol/L (21-32) Anion Gap 6 (6-14) Blood Urea Nitrogen 15 mg/dL (7-20) Creatinine 1.0 mg/dL (0.6-1.0) Estimated GFR (Cockcroft-Gault) 67.3 Glucose Level 67 mg/dL (70-99) Calcium Level 9.7 mg/dL (8.5-10.1) Troponin I Quantitative < 0.017 ng/mL (0.000-0.055) IP-Vnw-O-Type Natriuretic Peptide 1458 pg/mL (0-124) Glucose (Fingerstick) 64 mg/dL (70-99) 126 mg/dL (70-99) 87 mg/dL (70-99) Images Images CXR: The left-sided pacemaker is unchanged position. The patient is post CABG procedure. The cardiac silhouette is mildly enlarged. Atherosclerotic calcification of the thoracic aorta is seen. The thoracic aorta is mildly tortuous. No acute pulmonary infiltrate is seen. No pneumothorax or pleural effusion is noted. The osseous structures are unchanged. Impression: No acute abnormality is seen. CTPA: Visualized portions of the thyroid are unremarkable. No enlarged mediastinal lymph nodes are identified. Heart is mildly enlarged. Pacer with lead terminating in the right heart. No pericardial effusion. Mild coronary artery calcifications are noted. Thoracic aorta has a normal course and caliber. Pulmonary artery is not enlarge d. No pulmonary embolus is identified within the main or lobar pulmonary arteries. Evaluation distally is limited secondary to extensive respiratory motion. Airways are patent. No consolidation or pneumothorax. No suspicious lung nodules are identified. No pleural effusion or thickening. Visualized upper abdomen is unremarkable. No suspicious osseous lesions or acute fractures. IMPRESSION: 1. No pulmonary embolus identified within the main or lobar pulmonary arteries. Limitations as described above. 2. Cardiomegaly with mild coronary artery calcifications. VTE Prophylaxis Ordered VTE Prophylaxis Devices: No VTE Pharmacological Prophylaxi: Yes Assessment/Plan Assessment/Plan A/P: Right shoulder pain - seems like a strain on right teres minor muscle, will place in sling prn, avoid movement across chest. Topical voltaren gel Accelerated Hypertension - will get back on home medication. Intractable abdominal pain with nausea and vomiting. IV anti-emetics. 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 I have counseled endlessly on this. Vomited x1, has eaten twice already and is currently eating a popsicle Chest pain - likely demand from opioid hyperalgesia vs referred right shoulder or GI pain. Will maintain telemetry and trend troponins given her high risk and frequent hospitalizations Accelerated Hypertension - not currently controlled SSS s/p PPM - Stable Hyperlipidemia - Continue statin therapy Chronic stable angina Chronic combined systolic and diastolic heart failure - on home bumex. Her BNP is actually lower that it was at her ED visit 3 days ago, appears euvolemic and clinically compensated Akinetic distal anterior wall and the entire apical wall with ejection fraction estimated at 40%.per cath 05/12 Morbid obesity Diabetes type 2 - will repeat A1c. Sliding scale GERD - cont PPI CAD WITH HX STENTS - recent cardiac catheterization 04/2018 showed patent GARCIA to LAD and patent SVG to OM. No further cardiac workup is indicated Acute hypoxia - likely cor pulmonale FEN - Cardiac ADA diet PPX - Lovenox FULL CODE Dispo - was brought inpatient, negative cardiac workup, seems she does not feel comfortable staying at home alone and is running out of pain medication very early. Just filled 12/23/2019 and claims she is waiting to fill tomorrow. No further workup needed, will discharge home this evening. Justifications for Admission Other Justification VENKAT ALEJANDRO MD Jan 09, 2020 08:00
[2020-01-09] MEDS: BUMETANIDE 1 MG TABLET. PO SCH ×2 (08:52→13:52)
[2020-01-09] MEDS: POTASSIUM CHLORIDE 20 MEQ TABLET.ER. PO SCH ×2 (08:53→17:13)
[2020-01-09] MEDS: CARVEDILOL 12.5 MG TABLET. PO SCH ×2 (08:54→17:13)
[2020-01-09] MEDS: CAPSAICIN 0.025% TOPICAL CREAM 60GM TUBE. TP SCH ×2 (08:56→13:52)
[2020-01-09] MEDS ORDERED: CALCIUM CARB/VIT D3 500/200 TABLET. PO SCH (09:00)
[2020-01-09] MEDS ORDERED: LOSARTAN POTASSIUM 50 MG TABLET. PO SCH (09:00)
[2020-01-09] MEDS ORDERED: FLU VACC QS 2020-21(6MOS+)/PF 0.5 ML SYRINGE. VAX IM ONE (09:00)
[2020-01-09] MEDS ORDERED: ISOSORBIDE MONONITRATE ER 30 MG TAB.ER.24H PO SCH (09:00)
[2020-01-09] MEDS ORDERED: GLIMEPIRIDE 2 MG TABLET. PO SCH (09:00)
[2020-01-09] MEDS ORDERED: SPIRONOLACTONE 25 MG TABLET PO ONE (09:00)
[2020-01-09] MEDS ORDERED: FLUoxetine HCL 20 MG CAPSULE PO SCH (09:00)
[2020-01-09] MEDS ORDERED: CLOPIDOGREL BISULFATE 75 MG TABLET PO SCH (09:00)
[2020-01-09] MEDS ORDERED: ENOXAPARIN 40 MG/0.4 ML SYRINGE. SQ SCH (09:00)
[2020-01-09 11:27] VITALS: BP 149/53
[2020-01-09] MEDS ORDERED: clonazePAM 0.5 MG TABLET PO PRN (14:00)
[2020-01-09 15:00] VITALS: BP 132/49
--- NOTE | 2020-01-09 15:41 | PDOC3 ---
Discharge Summary Visit Information Date of Admission: Jan 08, 2020 Date of Discharge: Jan 09, 2020 Admitting Diagnosis: Right shoulder pain Final Diagnosis Problems Medical Problems: (1) Chest pain Status: Acute Brief Hospital Course Allergies Allergies Coded Allergies Type Severity Reaction Last Updated Verified No Known Drug Allergies 03/13/19 No Vital Signs Vital Signs Date Time Temp Pulse Resp B/P (MAP) Pulse Ox O2 Delivery O2 Flow Rate FiO2 01/09/20 12:45 18 100 Nasal Cannula 2.0 01/09/20 11:27 97.7 61 149/53 (85) 97.7 Lab Results Laboratory Tests Test 01/08/20 12:32 01/08/20 20:40 01/08/20 21:28 01/09/20 07:38 White Blood Count 6.3 x10^3/uL (4.0-11.0) Red Blood Count 4.26 x10^6/uL (3.50-5.40) Hemoglobin 11.0 g/dL (12.0-15.5) Hematocrit 35.1 % (36.0-47.0) Mean Corpuscular Volume 82 fL (79-100) Mean Corpuscular Hemoglobin 26 pg (25-35) Mean Corpuscular Hemoglobin Concent 32 g/dL (31-37) Red Cell Distribution Width 22.0 % (11.5-14.5) Platelet Count 269 x10^3/uL (140-400) Neutrophils (%) (Auto) 75 % (31-73) Lymphocytes (%) (Auto) 15 % (24-48) Monocytes (%) (Auto) 8 % (0-9) Eosinophils (%) (Auto) 1 % (0-3) Basophils (%) (Auto) 1 % (0-3) Neutrophils # (Auto) 4.7 x10^3/uL (1.8-7.7) Lymphocytes # (Auto) 1.0 x10^3/uL (1.0-4.8) Monocytes # (Auto) 0.5 x10^3/uL (0.0-1.1) Eosinophils # (Auto) 0.1 x10^3/uL (0.0-0.7) Basophils # (Auto) 0.0 x10^3/uL (0.0-0.2) Sodium Level 139 mmol/L (136-145) Potassium Level 4.8 mmol/L (3.5-5.1) Chloride Level 99 mmol/L (98-107) Carbon Dioxide Level 34 mmol/L (21-32) Anion Gap 6 (6-14) Blood Urea Nitrogen 15 mg/dL (7-20) Creatinine 1.0 mg/dL (0.6-1.0) Estimated GFR (Cockcroft-Gault) 67.3 Glucose Level 67 mg/dL (70-99) Calcium Level 9.7 mg/dL (8.5-10.1) Troponin I Quantitative < 0.017 ng/mL (0.000-0.055) EB-Nqa-B-Type Natriuretic Peptide 1458 pg/mL (0-124) Glucose (Fingerstick) 64 mg/dL (70-99) 126 mg/dL (70-99) 87 mg/dL (70-99) Test 01/09/20 08:55 01/09/20 12:35 Troponin I Quantitative < 0.017 ng/mL (0.000-0.055) < 0.017 ng/mL (0.000-0.055) Laboratory Tests Test 01/08/20 20:40 01/08/20 21:28 01/09/20 07:38 01/09/20 08:55 Glucose (Fingerstick) 64 mg/dL (70-99) 126 mg/dL (70-99) 87 mg/dL (70-99) Troponin I Quantitative < 0.017 ng/mL (0.000-0.055) Test 01/09/20 12:35 Troponin I Quantitative < 0.017 ng/mL (0.000-0.055) Brief Hospital Course Ms Laguna is a 64yo F w/ PMHx HTN, SSS, HLD, obesity, chronic pain syndrome, chronic systolic CHF, cor pulmonale with hypoxia on 3L NCO2 who presented with acute chest pain and right shoulder pain with worsening shortness of breath. C/o vomiting x1 prior to arrival, but asked for food upon arrival. Right shoulder pain that has been present for 3 weeks she was seen in the ED on 1014 and again on 1017 for this and admitted on 1017 last night. States she was just sitting there and it hurts to sleep on the right side. No rashes. Denies nausea, diarrhea, abdominal pain, diarrhea, dysuria, fever. She also endorses chest tightness that is baseline, worse with deep breath. Patient is on diuretics at home of Bumex 2 mg twice daily. She has multiple admissions in the past. She has been admitted frequently for chest pain with [facility] 04/2018 CXR with no acute abnormalities, pacer in place. CTPA with cardiomegaly and coronary artery calcifications, no abnormalities, no right shoulder abnormalities. Labs significant for WBC 6.3 Hb 11 platelets 269 NA [id number] BUN 15 CR 1 glucose 67 BNP 1458 troponins 03. Was admitted for further observation. Problem list: Right shoulder pain - seems like a strain on right teres minor muscle, will p lace in sling prn, avoid movement across chest. Topical voltaren gel Accelerated Hypertension - will get back on home medication. Chronic abdominal pain with vomiting x1. IV anti-emetics. 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 I have counseled endlessly on this. Vomited x1, has eaten twice already and is currently eating a popsicle Chest pain - likely demand from opioid hyperalgesia vs referred right shoulder or GI pain. Will maintain telemetry and trend troponins given her high risk and frequent hospitalizations SSS s/p PPM - Stable Hyperlipidemia - Continue statin therapy Chronic stable angina Chronic combined systolic and diastolic heart failure - on home bumex. Her BNP is actually lower that it was at her ED visit 3 days ago, appears euvolemic and clinically compensated Akinetic distal anterior wall and the entire apical wall with ejection fraction estimated at 40%.per cath 05/12 Morbid obesity Diabetes type 2 - will repeat A1c. Sliding scale GERD - cont PPI CAD WITH HX STENTS - recent cardiac catheterization 04/2018 showed patent GARCIA to LAD and patent SVG to OM. No further cardiac workup is indicated Chronic hypoxia - likely cor pulmonale Dispo - was brought inpatient, negative cardiac workup, seems she does not feel comfortable staying at home alone and is running out of pain medication very early. Just filled 12/23/2019 and claims she is waiting to fill tomorrow. No further workup needed, will discharge home this evening. Greater than 135 minutes spent on same day admit and d/c Discharge Information Condition at Discharge: Improved Follow Up: Weeks (1) Disposition/Orders: D/C to Home Scheduled Albuterol Sulfate (Ventolin Hfa Inhaler) 18 Gm Hfa.aer.ad, 2 PUFF INH [id number] for FOR ASTHMA, Ref 0 (Reported) Entered as Reported by: JOVANNY MORALES on 01/08/202203 Last Action: Converted on 01/08/202235 by JOVANNY MORALES Aspirin (Aspir 81) 81 Mg Tablet.dr, 1 TAB PO DAILY, #30 Ref 5 (Reported) Entered as Reported by: FIFI WALSH on 10/28/16 1058 Last Action: Continued on 01/08/202235 by JOVANNY MORALES Atorvastatin Calcium (Atorvastatin Calcium) 20 Mg Tablet, 20 MG PO HS for FOR CHOLESTEROL, #30 Ref 0 (Reported) Entered as Reported by: FIFI WALSH on 10/28/16 1108 Last Action: Continued on 01/08/202235 by JOVANNY MORALES Bumetanide (Bumetanide) 2 Mg Tablet, 2 MG PO BID for DIURETIC, (Reported) Entered as Reported by: JOVANNY MORALES on 01/08/202203 Last Action: Converted on 01/08/202235 by JOVANNY MORALES Calcium Carbonate/Vitamin D3 (Calcium 500 + Vit D 200 Caplet) 1 Each Tablet, 1 EACH PO DAILY for supplement, (Reported) Entered as Reported by: KENNEY YANG on 05/16/182321 Last Action: Continued on 01/08/202235 by JOVANNY MORALES Capsaicin (Capsaicin) 60 Gm Cream..g., 60 GM TP TID for , (Reported) apply to morgan feet Entered as Reported by: Tiffany Dodson on 07/14/182110 Last Action: Continued on 01/08/202235 by JOVANNY MORALES Carvedilol (Carvedilol) 25 Mg Tablet, 12.5 MG PO BIDWMEALS for CARDIAC, (Reported) Entered as Reported by: JOVANNY MORALES on 01/08/202203 Last Action: Converted on 01/08/202235 by JOVANNY MORALES Clonazepam (Clonazepam) 1 Mg Tablet, 0.5 MG PO TID for FOR ANXIETY, (Reported) Entered as Reported by: JOVANNY MORALES on 01/08/202203 Last Action: Converted on 01/08/202235 by JOVANNY MORALES Clopidogrel Bisulfate (Clopidogrel) 75 Mg Tablet, 75 MG PO DAILY for TO PREVENT BLOOD CLOTS, #30 Ref 0 (Reported) Entered as Reported by: Laureano Nazario RN on 10/10/19702 Last Action: Continued on 01/08/202235 by JOVANNY MORALES Fluoxetine Hcl (Fluoxetine Hcl) 20 Mg Capsule, 1 CAP PO DAILY for anti- depressent, #90 Ref 1 (Reported) Entered as Reported by: KENNEY YANG on 05/16/182321 Last Action: Continued on 01/08/202235 by JOVANNY MORALES Glimepiride (Amaryl) 2 Mg Tablet, 2 MG PO DAILY for 30 Days, #30 Prescribed by: RADHA PIERRE MD on 07/04/17 1010 Last Action: Continued on 01/08/202235 by JOVANNY MORALES Insulin Glargine,Hum.rec.anlog (Lantus Solostar) 100 Unit/1 Ml Insuln.pen, 8 UNIT SQ QHS for diabetes, #15 Ref 3 (Reported) Entered as Reported by: JOVANNY MORALES on 01/08/202203 Last Action: Converted on 01/08/202235 by JOVANNY MORALES Isosorbide Mononitrate (Isosorbide Mononitrate Er) 30 Mg Tab.er.24h, 30 MG PO DAILY for hypertension, (Reported) Entered as Reported by: JOVANNY MORALES on 01/08/202203 Last Action: Continued on 01/08/202235 by JOVANNY MORALES Losartan Potassium (Losartan Potassium) 100 Mg Tablet, 100 MG PO DAILY for HYPERTENSION, (Reported) Entered as Reported by: Laureano Nazario RN on 10/10/19702 Last Action: Converted on 01/08/202235 by JOVANNY MORALES Pantoprazole Sodium (Protonix ) 40 Mg Tablet.dr, 40 MG PO DAILYAC for GERD for 60 Days, #60 Prescribed by: CATHIE KNIGHT on 01/29/19 0857 Last Action: Continued on 01/08/202235 by JOVANNY MORALES Potassium Chloride (Potassium Chloride ) 20 Meq Tablet.er, 20 MEQ PO BIDWMEALS for SUPPLEMENT, (Reported) Entered as Reported by: JOVANNY MORALES on 01/08/202203 Last Action: Continued on 01/08/202235 by JOVANNY MORAELS Spironolactone (Spironolactone) 50 Mg Tablet, 50 MG PO HS for HEART, (Reported) Entered as Reported by: JOVANNY MORALES on 01/08/202203 Last Action: Converted on 01/08/202235 by JOVANNY MORALES Trazodone Hcl (Trazodone Hcl) 50 Mg Tablet, 50 MG PO HS for DEPRESSION, SLEEP, (Reported) Entered as Reported by: JOVANNY MORALES on 01/08/202203 Last Action: Continued on 01/08/202235 by JOVANNY MORALES Scheduled PRN Amlodipine Besylate (Amlodipine Besylate) 10 Mg Tablet, 10 MG PO X1 PRN for YPERTENSION, (Reported) Entered as Reported by: JOVANNY MORALES on 01/08/202203 Last Action: New Order on 01/08/202203 by JOVANNY MORALES Nitroglycerin (NITROGLYCERIN SubLingual) 0.4 Mg Tab.subl, 0.4 MG SL PRN Q5MIN PRN for CHEST PAIN, (Reported) Entered as Reported by: LOYDA CELAYA RN on 11/01/16 0013 Last Action: Continued on 01/08/202235 by JOVANNY MORALES Oxycodone/Apap 10-325 (Percocet 10-325 Mg Tablet ) 1 Each Tablet, 1 TAB PO PRN Q6HRS PRN for PAIN, Ref 0 (Reported) Entered as Reported by: JOVANNY MORALES on 01/08/202203 Last Action: Continued on 01/08/202235 by JOVANNY MORALES Discontinued Medications Oxycodone HCl/Acetaminophen (Percocet 5-325 mg Tablet) 1 Each Tablet, 1 TAB PO PRN Q6HRS PRN for PAIN MDD 2 Tablet(s), #30 Ref 0 (Reported) Entered as Reported by: VINCENZO GEE on 06/17/19 1255 Last Action: Discontinued on 01/08/202203 by JOVANNY MORALES Justicifation of Admission Dx: Justifications for Admission: Justification of Admission Dx: N/A VENKAT ALEJANDRO MD Jan 09, 2020 15:41
[2020-01-09 17:13] VITALS: BP 132/49
--- NOTE | 2020-01-09 19:11 | NUR ---
Discharge Note: GRETCHEN BONILLA [address] Discharge instructions and discharge home medications reviewed with patient and a copy given. All questions have been answered and understanding verbalized. Pain medicine given prior to discharge per Dr. Be's instructions. The following instructions and handouts were given: Take home meds as directed. Watch out for severe dyspnea, chest pain, weakness. Home oxygen as directed. Patient to follow up with her PCP. Discontinued lines and drains: peripheral IV intact, patient tolerated removal, no complications noted. Patient discharged to home with self-care via wheelchair accompanied by family member at 1910.
[2020-01-09] MEDS ORDERED: traZODone 50 MG TABLET. PO SCH (21:00)
[2020-01-09] MEDS ORDERED: INSULIN GLARGINE HUM REC ANLOG 8 UNIT SQ SCH (21:00)
[2020-01-09] MEDS ORDERED: ATORVASTATIN CALCIUM 20 MG TABLET PO ONE (21:00)
== END 2020-01-09 19:10 | disposition home or self-care (01) ==
LOC: ER 12:06 → OBSVTOIN 17:02 → 2 NORTH 17:02 → INTOOBSV 17:02 → 2 NORTH 18:52
PROVIDERS: ADMIT Internal Medicine; ATTEND Internal Medicine
DX: R07.89 Other chest pain (principal); M25.511 Pain in right shoulder; J44.9 Chronic obstructive pulmonary disease, unspecified; I25.10 Atherosclerotic heart disease of native coronary artery without angina pectoris; I13.0 Hypertensive heart and chronic kidney disease with heart failure and stage 1 through stage 4 chronic kidney disease, or unspecified chronic kidney disease; E11.22 Type 2 diabetes mellitus with diabetic chronic kidney disease; I50.42 Chronic combined systolic (congestive) and diastolic (congestive) heart failure; N18.9 Chronic kidney disease, unspecified; E78.5 Hyperlipidemia, unspecified; I49.5 Sick sinus syndrome; Z23 Encounter for immunization; Z79.899 Other long term (current) drug therapy; Z90.710 Acquired absence of both cervix and uterus; Z95.0 Presence of cardiac pacemaker; Z95.1 Presence of aortocoronary bypass graft; Z96.659 Presence of unspecified artificial knee joint
CPT/HCPCS: 36415; 71046; 71275; 80048; 82962; 83880; 84484; 85025; 90471; 90686; 96372; 96374; 96375; 99285; A4565; G0378; J1650; J1885; J2405; Q9967; G0379

== ENCOUNTER 2020-04-13 19:45 | Emergency (ER) | payer MEDICARE, MEDICAID ==
[~2020-04-13] VITALS: Ht 162.6 cm; Wt 104.5 kg
[~2020-04-13 19:45] MED LIST changes: +BENZ-8 PO; +BUME2TAB3 PO; +GUAI5SYR PO; +INSU100I13 SQ; +INSU100V35 SQ; -ISOS30TA4 PO; +ISOS30TA68 PO; -ISOS60TA2 PO; +ISOS60TA55 PO; +LIDO700A21 TD; -LISI-334 PO; +LISI20TA18 PO; +POTA20TA4 PO; +PRED-220 PO; +SPIR50TA4 PO; +TRAZ-118 PO
[2020-04-13] MEDS ORDERED: IV NORMAL SALINE 1000ML BAG 1,000 ML IV SCH (20:15)
[2020-04-13 20:26] LABS: BASO # 0.1 x10^3/uL (0.0-0.2); BASO % 1 % (0-3); EOS % 0 % (0-3); HEMATOCRIT 33.4 % (36.0-47.0); HEMOGLOBIN 10.9 g/dL (12.0-15.5); LYMPH # 1.2 x10^3/uL (1.0-4.8); LYMPH % 15 % (24-48); MEAN CORPUSCULAR HEMOGLOBIN 28 pg (25-35); MEAN CORPUSCULAR HGB CONC 33 g/dL (31-37); MEAN CORPUSCULAR VOLUME 85 fL (79-100); MONO # 0.6 x10^3/uL (0.0-1.1); MONO % 8 % (0-9); NEUT # 5.8 x10^3/uL (1.8-7.7); NEUT % 76 % (31-73); PLATELET COUNT 269 x10^3/uL (140-400); RED BLOOD COUNT 3.95 x10^6/uL (3.50-5.40); WHITE BLOOD COUNT 7.7 x10^3/uL (4.0-11.0)
[2020-04-13] MEDS ORDERED: METOCLOPRAMIDE HCL 10 MG/2 ML VIAL. IVP ONE (20:30)
[2020-04-13] MEDS ORDERED: FAMOTIDINE 20 MG/2 ML VIAL IVP ONE (20:30)
[2020-04-13] MEDS ORDERED: KETOROLAC 15 MG/ML VIAL. IVP ONE (20:30)
[2020-04-13 20:35] LABS: CREATININE 0.8 mg/dL (0.6-1.0); GFR 86.8; POTASSIUM 4.3 mmol/L (3.5-5.1)
[2020-04-13 20:44] LABS: ALBUMIN 3.2 g/dL (3.4-5.0); ALBUMIN/GLOBULIN RATIO 0.7 (1.0-1.7); TOTAL BILIRUBIN 0.4 mg/dL (0.2-1.0); TOTAL PROTEIN 7.7 g/dL (6.4-8.2)
--- NOTE | 2020-04-13 20:59 | RAD ---
INDICATION: Reason: SOA / Spl. Instructions: / History: COMPARISON: March 03, 2020 FINDINGS: Single view of the chest obtained. Enlarged cardiomediastinal silhouette with poststernotomy changes, calcific atherosclerosis as well a s pacemaker. The left lower lung is obscured by the cardiac silhouette. Coarsened lung markings with hyperexpansion is again seen without a definite new region of consolidation IMPRESSION: * Similar appearance compared to prior. Enlarged cardiomediastinal silhouette is again seen which ob scures the left mid to lower lung without a definite new region of consolidation elsewhere in the marcella gs. Electronically signed by: Stew Dubois MD (04/13/2020 8:56 PM) [id number]
--- NOTE | 2020-04-13 21:13 | PHYS DOC ---
Past Medical History Past Medical History: CHF, COPD, Diabetes-Type II, Other Additional Past Medical Histor: O2 @ 2-3 L , chronic pain, NEUROPATHY Past Surgical History: Other Additional Past Surgical Histo: HERNIA REPAIR, CABG X 2 VESSELS Smoking Status: Never Smoker Alcohol Use: None Drug Use: None General Adult EDM: Chief Complaint: MULTIPLE COMPLAINTS HPI: HPI: 65-year-old female past medical history of CHF, COPD on 2-3LNC at home, and DM, presents to the ED with complaints of shortness of breath for the past week, exacerbated with deep respirations, associated right upper chest wall tenderness and right shoulder pain. Is unable to refill her Percocet prescription by her pain management physician. Patient denies active chest pain but states her chest wall hurts when she breathes in and out. Denies any known history of Covid or exposure. No history of cocaine use. Cannot recall her last COPD exacerbation or need for steroids. Review of Systems: Review of Systems: Constitutional: Denies fever or chills. [] Eyes: Denies change in visual acuity. [] HENT: Denies nasal congestion or sore throat. [] Respiratory: Denies cough or hemoptysis Cardiovascular: Denies chest pressure or edema GI: Denies abdominal pain, nausea, vomiting, bloody stools or diarrhea. [] : Denies dysuria or hematuria Musculoskeletal: Denies back pain or joint pain. [] Integument: Denies rash or diaphoresis Neurologic: Denies headache, neck stiffness, focal weakness or sensory changes. [] Endocrine: Denies polyuria or polydipsia. [] Lymphatic: Denies swollen glands. [] Psychiatric: Denies depression or anxiety. [] Heart Score: HEART Score for Chest Pain: HEART Score for Chest Pain Response (Comments) Value History Slighlty/Non-Suspicious 0 ECG Normal 0 Age > 65 2 Risk Factors >3 Risk Factors or Hx CAD 2 Troponin < Normal Limit 0 Total 4 Risk Factors: Risk Factors: DM, Current or recent (<one month) smoker, HTN, HLP, family hi story of CAD, obesity. Risk Scores: Score 0 - 3: 2.5% MACE over next 6 weeks - Discharge Home Score 4 - 6: 20.3% MACE over next 6 weeks - Admit for Clinical Observation Score 7 - 10: 72.7% MACE over next 6 weeks - Early Invasive Strategies Current Medications: Current Medications Medications (Trade) Dose Ordered Sig/Susan Start Time Stop Time Status Last Admin Dose Admin Famotidine (Pepcid Vial) 20 mg 1X ONCE 04/13/20 20:30 04/13/20 20:31 DC 04/13/20 21:04 20 MG Ketorolac Tromethamine (Toradol 15mg Vial) 15 mg 1X ONCE 04/13/20 20:30 04/13/20 20:31 DC 04/13/20 21:03 15 MG Metoclopramide HCl (Reglan Vial) 10 mg 1X ONCE 04/13/20 20:30 04/13/20 20:31 DC 04/13/20 21:06 10 MG Sodium Chloride 1,000 ml @ 1,000 mls/hr Q1H 04/13/20 20:15 04/13/20 21:06 DC Allergies: Allergies: Allergies Coded Allergies Type Severity Reaction Last Updated Verified No Known Drug Allergies 03/13/19 No Physical Exam: PE: Constitutional: Well developed, well nourished, no acute distress, non-toxic appearance. HENT: Normocephalic, atraumatic, Eyes: EOMI, conjunctiva normal, no discharge. Neck: Normal range of motion, supple, Cardiovascular: S1/2 present, regular rhythm Lungs & Thorax: Speaking in full sentences, bilateral equal chest rise, no tachypnea or increased work of breathing, mild expiratory wheezing on exam, ttp over right upper/anterior chest wall, Abdomen: soft, no tenderness, Skin: Warm, dry, no erythema, no rash. [] Back: No tenderness, no CVA tenderness. [] Extremities: No tenderness, no cyanosis, no edema, from right shoulder Neurologic: Alert and oriented X 3, normal motor function, normal sensory function, no focal deficits noted. [] Psychologic: Affect normal, judgement normal, mood normal. [] Current Patient Data: Labs: Laboratory Tests Test 04/13/20 20:15 White Blood Count 7.7 x10^3/uL (4.0-11.0) Red Blood Count 3.95 x10^6/uL (3.50-5.40) Hemoglobin 10.9 g/dL (12.0-15.5) L Hematocrit 33.4 % (36.0-47.0) L Mean Corpuscular Volume 85 fL (79-100) Mean Corpuscular Hemoglobin 28 pg (25-35) Mean Corpuscular Hemoglobin Concent 33 g/dL (31-37) Red Cell Distribution Width 16.0 % (11.5-14.5) H Platelet Count 269 x10^3/uL (140-400) Neutrophils (%) (Auto) 76 % (31-73) H Lymphocytes (%) (Auto) 15 % (24-48) L Monocytes (%) (Auto) 8 % (0-9) Eosinophils (%) (Auto) 0 % (0-3) Basophils (%) (Auto) 1 % (0-3) Neutrophils # (Auto) 5.8 x10^3/uL (1.8-7.7) Lymphocytes # (Auto) 1.2 x10^3/uL (1.0-4.8) Monocytes # (Auto) 0.6 x10^3/uL (0.0-1.1) Eosinophils # (Auto) 0.0 x10^3/uL (0.0-0.7) Basophils # (Auto) 0.1 x10^3/uL (0.0-0.2) D-Dimer (Anila) 0.62 ug/mlFEU (0.00-0.50) H Sodium Level 141 mmol/L (136-145) Potassium Level 4.3 mmol/L (3.5-5.1) Chloride Level 101 mmol/L (98-107) Carbon Dioxide Level 37 mmol/L (21-32) H Anion Gap 3 (6-14) L Blood Urea Nitrogen 12 mg/dL (7-20) Creatinine 0.8 mg/dL (0.6-1.0) Estimated GFR (Cockcroft-Gault) 86.8 BUN/Creatinine Ratio 15 (6-20) Glucose Level 101 mg/dL (70-99) H Calcium Level 10.0 mg/dL (8.5-10.1) Total Bilirubin 0.4 mg/dL (0.2-1.0) Aspartate Amino Transferase (AST) 21 U/L (15-37) Alanine Aminotransferase (ALT) 23 U/L (14-59) Alkaline Phosphatase 90 U/L (46-116) Creatine Kinase 78 U/L (26-192) Troponin I Quantitative < 0.017 ng/mL (0.000-0.055) QZ-[id number]-Type Natriuretic Peptide 2311 pg/mL (0-124) H Total Protein 7.7 g/dL (6.4-8.2) Albumin 3.2 g/dL (3.4-5.0) L Albumin/Globulin Ratio 0.7 (1.0-1.7) L Laboratory Tests 04/13/20 20:15 Laboratory Tests 04/13/20 20:15 Vital Signs: Vital Signs Date Time Temp Pulse Resp B/P (MAP) Pulse Ox O2 Delivery O2 Flow Rate FiO2 04/13/20 20:29 99.0 62 20 199/89 (125) 100 Nasal Cannula 2.0 99.0 EKG: EKG: Sinus paced rhythm 60 bpm, QRS 150 which is expected, right bundle branch block with strain/V1 through V3 T wave inversions, T wave inversion 1 and aVL, patient with no active chest pain Radiology/Procedures: Radiology/Procedures: IMAGING REPORT Signed PATIENT: GRETCHEN BONILLA EACCOUNT: [id number] : 1955 LOCATION: ER AGE: 65 SEX: F EXAM STATUS: REG ER ORD. PHYSICIAN: MARCIO ALANIZ DO REASON: SOA PROCEDURE: PORTABLE CHEST 1V INDICATION: Reason: SOA / Spl. Instructions: / History: COMPARISON: March 03, 2020 FINDINGS: Single view of the chest obtained. Enlarged cardiomediastinal silhouette with poststernotomy changes, calcific atherosclerosis as well as pacemaker. The left lower lung is obscured by the cardiac silhouette. Coarsened lung markings with hyperexpansion is again seen without a definite new region of consolidation IMPRESSION: * Similar appearance compared to prior. Enlarged cardiomediastinal silhouette is again seen which obscures the left mid to lower lung without a definite new region of consolidation elsewhere in the lungs. Electronically signed by: Miguel Angel Dubois MD (04/13/2020 8:56 PM) [id number] DICTATED and SIGNED BY: MIGUEL ANGEL DUBOIS MD DATE: 04/13/20 [id number] 0 Course & Med Decision Making: Course & Med Decision Making Pertinent Labs and Imaging studies reviewed. (See chart for details) COVID-19 CRITERIA: The patient was evaluated during the global COVID-19 pandemic, and that diagnosis was suspected/considered upon their initial presentation. Their evaluation, treatment and testing was consistent with current guidelines for patients who present with complaints or symptoms that may be related to COVID-19. Concern for pleuritic chest wall tenderness with deep breaths (no pressure/tightness/heaviness/squeezing/tearing or ripping pain) - suspect viral uri with mild copd exacerbation. Chest x-ray unremarkable. D-dimer ordered prior to EMR reviewed -had a negative CTA of the chest on March 03, 2020 that showed no pulmonary embolus. Troponin is within normal limits. Chest x-ray with stable cardiomegaly. BNP decreased from prior. Low suspicion for Covid but due to her comorbidities was tested. Influenza negative. Patient was made aware that her D-dimer was elevated and PE was not excluded-she agrees with this plan due to risk of radiation-induced malignancy and understands strict ED return precautions if her breathing should become worse she develop any hemoptysis or fever-return precautions for PE. Will discharge home with strict ED return precautions were given for neurologic deficits, chest pain, worsening breathing, syncope or neurologic deficits. Encouraged urgent outpatient follow- up with PMD and pulmonology. Life-threatening processes were considered but are low suspicion at this time, given history, physical exam and ED workup. Pt was educated on all prescription medications and adverse effects. All patient's questions were answered and pt was stable at time of discharge. Life/limb-threatening differential includes but is not limited to, ACS, dysrhythmia, pneumothorax or hemothorax, pulmonary embolus, pneumonia, bronchoconstriction, pulmonary edema, angioedema, epiglottitis, tracheitis, Wally's angina, RPA/MEDICAL AND SCIENTIFIC ILLUSTRATOR, anaphylaxis, angioedema, cardiac tamponade or murmurs, pericarditis, myocarditis, poisoning or toxicity, sepsis or autoimmune/neurologic disease. I spoken with the patient and her caregivers. I explained the patient's condition, diagnoses and treatment plan based on the information available to me at this time. I have answered the patient and her caregiver's questions and addressed any concerns. The patient and her caregivers have a good understanding of patient's diagnosis, condition and treatment plan as can be expected at this point. Vital signs have been stable. Patient's condition is stable and appropriate for discharge from the emergency department. Patient will pursue further outpatient evaluation with primary care physician or other designated or consulting physician as outlined in the discharge instructions. The patient and/or caregivers are agreeable to this plan of care and follow-up instructions have been explained in detail. The patient and/or caregivers have received these instructions in written form and have expressed an understanding of the discharge instructions. The patient and/or caregivers are aware that any significant change of condition or worsening of symptoms should prompt immediate return to this or the closest emergency department or call to 911. Hakeem Disclaimer: Draghollie Disclaimer: This electronic medical record was generated, in whole or in part, using a voice recognition dictation system. Departure Departure Impression: Primary Impression: Person under investigation for COVID-19 Additional Impression: COPD exacerbation Disposition: 01 DC HOME SELF CARE/HOMELESS Condition: STABLE Referrals: NO PCP (PCP) FOLLOW UP WITH FAMILY MEDICINE: Family Medicine Address: [address] [facility], [facility] [address] [place] [address] Patient Instructions: Chronic Obstructive Pulmonary Disease Additional Instructions: FOLLOW UP WITH: [facility] Address: [address] [facility] [address] [place] [address] Return to ED immediately if your oxygen level drops below 90% (purchase a pulse oximetry at a medical supply store), difficulties breathing including rapid breathing or increased work of breathing (skin sucking under ribs), chest pain or stroke-like symptoms (facial droop, speech changes, arm/leg weakness). You have been tested for or diagnosed with COVID-19. It is an infection caused by a new type of coronavirus. COVID-19 will cause cold-like or mild flu symptoms in most. It can cause more severe symptoms like problems breathing in some. There is no treatment for COVID-19. The body will clear the infection over time. Self-care will help to ease discomfort. Steps to Take: Self-Care Rest as needed. Healthy habits may help you feel better. Steps include: Choose healthy foods including fruits and vegetables. Drink water throughout the day. Get plenty of sleep each night. If you smoke, try to quit. It may ease breathing. Avoid alcohol. Keep Others Healthy The virus can spread to others. Droplets are released every time you sneeze or cough. The droplets can get into the mouth, nose, or eyes of people near you and lead to i nfection. To lower the chances of spreading COVID-19 to others: Stay at home until your doctor has said it is safe to leave. If you tested positive this will mean staying isolated until both of the following are true: At least 7 days have passed since the start of illness. You are free of fever for at least 72 hours without the use of medicine. During this time: - Avoid public areas, events, or transportation. Do not return to work or school until your doctor has said it is safe to do so. - Call ahead if you need to go to a medical center. Let them know you may have COVID-19. It will help them guide you where to go. They may also ask you to wear a facemask when you come to the office. - If you call for emergency medical services, let them know you may have COVID- 19. While at home: - Try to avoid close contact with others. Stay about 6 feet away. - If possible, spend most of your time in a separate room from others. - Use a face mask if you will be in close contact with others such as sharing a room or vehicle. - Have someone wipe down common surfaces in the home. Use household printed circuit boards contact printer every day on areas like doorknobs, counters, or sinks. - Cough or sneeze into a tissue. Throw the tissue away right after use. If a tissue is not available, cough or sneeze into your elbow. - Wash your hands often. Wash them after sneezing or coughing. Use soap and water and wash for at least 20 seconds. Alcohol based hand boat cleaner can be used if soap and water is not available. - Do not prepare food for others. Avoid sharing personal items like forks, spoons, or toothbrushes. - Avoid close contact with pets while you are sick. There is no evidence of the virus passing to pets. This is a safety step until more is known about this virus. Isolation can be frustrating. Social interaction can help. Keep in touch with friends and family through phone and tech options. You can still interact with others in your home, just keep a safe distance of about 6 feet. Follow-up: Your doctors office will check in with you to see if there are any changes in your health. You may be asked to keep track of symptoms to share with them. They will also let you know when you are clear to be in public again. Problems to Look Out For: Contact your doctor if your recovery is not going as you expect. Get emergency care if you have problems such as: - Trouble breathing - Nonstop chest pain or pressure - Changes in awareness, confusion, or problems waking - Lips or face have bluish color - Worsening of symptoms If you think you have an emergency, call for emergency medical services right away. As taken from [facility] Albuterol Sulfate (VENTOLIN HFA INHALER) 18 Gm Hfa.aer.ad 2 PUFF INH QID for FOR ASTHMA, #1 INHALER 0 Refills Prov: MARCIO ALANIZ DO 04/13/20 Prednisone (PREDNISONE) 20 Mg Tablet 2 TAB PO DAILY for 4 Days, #8 TAB Prov: MARCIO ALANIZ DO 04/13/20 MARCIO ALANIZ DO Apr 13, 2020 21:12
[2020-04-13] MEDS ORDERED: DEXAMETHASONE SOD PHOS 20 MG/5 ML VIAL. IV ONE (21:15)
[2020-04-13] MEDS ORDERED: IPRATRPIUM/ALBUTEROL 0.5/2.5MG 3 ML NEBU. NEB ONE (22:15)
[2020-04-13] MEDS ORDERED: diazePAM 5 MG TABLET PO ONE (22:15)
[2020-04-13 22:58] LABS: INFLUENZA A PATIENT NEGATIVE (NEGATIVE); INFLUENZA B PATIENT NEGATIVE (NEGATIVE)
[2020-04-13] MEDS ORDERED: VENTOLIN HFA18 GM INH (23:59)
[2020-04-13] MEDS ORDERED: PRED20TA PO (23:59)
[2020-04-14 00:06] VITALS: BP 185/93
--- NOTE | 2020-04-15 14:01 | NUR ---
IP: Informed pt of negative COVID test. Pt verbalized understanding.
--- NOTE | 2020-04-17 10:23 | EKG ---
[facility] [address] [place] [address] Test Date: 2020-04-13 Test Time: 20:37:19 Pat Name: GRETCHEN BONILLA Department: Room: Gender: F Gaggerman: : 1955 Requested By: MARCIO ALANIZ Order Number: [id number] Reading MD: Measurements Intervals [place] Rate: 60 P: -28 [place]: 104 QRS: -146 QRSD: 150 T: 109 QT: 446 QTc: 451 Interpretive Statements SINUS RHYTHM WPW PATTERN, TYPE A ABNORMAL RIGHT SUPERIOR AXIS DEVIATION LOW LIMB LEAD VOLTAGE ABNORMAL ECG RI6.01 No previous ECG available for comparison
== END 2020-04-14 00:35 | disposition home or self-care (01) ==
LOC: ER 19:45
DX: J44.1 Chronic obstructive pulmonary disease with (acute) exacerbation (principal); Z20.822 Contact with and (suspected) exposure to COVID-19; E11.40 Type 2 diabetes mellitus with diabetic neuropathy, unspecified; I50.9 Heart failure, unspecified; G89.29 Other chronic pain; Z98.890 Other specified postprocedural states
CPT/HCPCS: 36415; 71045; 80053; 82550; 83880; 84484; 85025; 85379; 87804; 93005; 94640; 96374; 96375; 99285; C9803; J1100; J1885; J2765; J3490; U0003

== ENCOUNTER 2020-04-25 13:12 | Inpatient (IN) | payer MEDICARE, MEDICAID ==
[~2020-04-25] VITALS: Ht 162.6 cm; Wt 107.6 kg
[2020-04-25 13:45] LABS: BILIRUBIN,URINE NEGATIVE (NEG); CLARITY,URINE CLEAR; COLOR,URINE YELLOW; NITRITE,URINE NEGATIVE (NEG); PH,URINE 8.5 (<5.0-8.0); PROTEIN,URINE 100 mg/dL (NEG-TRACE)
[2020-04-25 13:53] LABS: BASO % 1 % (0-3); EOS % 1 % (0-3); HEMATOCRIT 33.5 % (36.0-47.0); HEMOGLOBIN 10.7 g/dL (12.0-15.5); LYMPH # 0.7 x10^3/uL (1.0-4.8); LYMPH % 8 % (24-48); MEAN CORPUSCULAR HEMOGLOBIN 27 pg (25-35); MEAN CORPUSCULAR HGB CONC 32 g/dL (31-37); MEAN CORPUSCULAR VOLUME 86 fL (79-100); MONO # 0.6 x10^3/uL (0.0-1.1); MONO % 8 % (0-9); NEUT # 6.7 x10^3/uL (1.8-7.7); NEUT % 83 % (31-73); PLATELET COUNT 233 x10^3/uL (140-400); RED BLOOD COUNT 3.91 x10^6/uL (3.50-5.40); RED CELL DISTRIBUTION WIDTH 16.6 % (11.5-14.5); WHITE BLOOD COUNT 8.1 x10^3/uL (4.0-11.0)
[2020-04-25 13:55] LABS: BACTERIA,URINE 0 /HPF (0-FEW); RBC,URINE 0 /HPF (0-2); WBC,URINE 0 /HPF (0-4)
[2020-04-25 14:10] LABS: CALCIUM 9.5 mg/dL (8.5-10.1); CREATININE 0.7 mg/dL (0.6-1.0); GFR 101.3; POTASSIUM 3.7 mmol/L (3.5-5.1)
[2020-04-25 14:16] LABS: ALBUMIN 3.4 g/dL (3.4-5.0); ALBUMIN/GLOBULIN RATIO 0.8 (1.0-1.7); TOTAL BILIRUBIN 0.9 mg/dL (0.2-1.0); TOTAL PROTEIN 7.8 g/dL (6.4-8.2)
--- NOTE | 2020-04-25 14:21 | RAD ---
Exam performed: One view chest. Indication: Reason: SOA / Spl. Instructions: / History: Date of Service: 04/25/2020 1:39 PM Comparison: One view chest from 04/13/2020. Single AP upright portable view chest findings: Cardiomediastinal silhouette is enlarged, however stable. Previous median sternotomy. Pulmonary vascu larity appears mildly congested. Coarse interstitial markings are seen in both lungs similar to prior study. No acute infiltrates, effusion or pneumothorax is detected. The bony structures are normal. Impression: Stable cardiomegaly with mild increased central vascular congestion. Electronically signed by: Amee Chapman MD (04/25/2020 2:18 PM) [id number]
[2020-04-25] MEDS ORDERED: FUROSEMIDE 40 MG/4 ML VIAL. IVP ONE (14:45)
[2020-04-25] MEDS ORDERED: ONDANSETRON PF 4 MG/2 ML VIAL. IVP ONE (15:15)
[2020-04-25] MEDS ORDERED: hydrALAZINE 20 MG/ML VIAL. IVP ONE (15:15)
--- NOTE | 2020-04-25 15:30 | PHYS DOC ---
Past Medical History Past Medical History: CHF, COPD, Diabetes-Type II, Hypertension, Other Additional Past Medical Histor: O2 @ 2-3 L , chronic pain, NEUROPATHY Past Surgical History: Other Additional Past Surgical Histo: HERNIA REPAIR, CABG X 2 VESSELS Smoking Status: Never Smoker Alcohol Use: None Drug Use: None General Adult EDM: Chief Complaint: SHORTNESS OF BREATH HPI: HPI: Patient is a 65 year old female who presented to ER for evaluation of trouble breathing that is getting worse for last 3 days. Her symptom is worse with exertion. Patient denies any chest pain, no abdominal pain, no nausea vomiting. Patient denies any cough or fever. Patient has history of CHF, and history of COPD, she is on oxygen at home. Patient was admitted here last month for the same problem. Patient says she feels like she is gaining more fluid. Review of Systems: Review of Systems: Constitutional: Denies fever or chills. [] Eyes: Denies change in visual acuity. [] HENT: Denies nasal congestion or sore throat. [] Respiratory: Denies cough, positive for shortness of air. Cardiovascular: Denies chest pain, positive for edema. GI: Denies abdominal pain, nausea, vomiting, bloody stools or diarrhea. [] : Denies dysuria. [] Musculoskeletal: Denies back pain or joint pain. [] Integument: Denies rash. [] Neurologic: Denies headache, focal weakness or sensory changes. [] Endocrine: Denies polyuria or polydipsia. [] Lymphatic: Denies swollen glands. [] Psychiatric: Denies depression or anxiety. [] Heart Score: Risk Factors: Risk Factors: DM, Current or recent (<one month) smoker, HTN, HLP, family history of CAD, obesity. Risk Scores: Score 0 - 3: 2.5% MACE over next 6 weeks - Discharge Home Score 4 - 6: 20.3% MACE over next 6 weeks - Admit for Clinical Observation Score 7 - 10: 72.7% MACE over next 6 weeks - Early Invasive Strategies Current Medications: Current Medications Medications (Trade) Dose Ordered Sig/Susan Start Time Stop Time Status Last Admin Dose Admin Furosemide (Lasix) 40 mg 1X ONCE 04/25/20 14:45 04/25/20 14:46 DC 04/25/20 15:22 40 MG Hydralazine HCl (Apresoline Inj) 20 mg 1X ONCE 04/25/20 15:15 04/25/20 15:16 DC 04/25/20 15:23 20 MG Ondansetron HCl (Zofran) 4 mg 1X ONCE 04/25/20 15:15 04/25/20 15:16 DC 04/25/20 15:20 4 MG Allergies: Allergies: Allergies Coded Allergies Type Severity Reaction Last Updated Verified No Known Drug Allergies 03/13/19 No Physical Exam: PE: Constitutional: Well developed, well nourished, no acute distress, non-toxic appearance. [] HENT: Normocephalic, atraumatic, bilateral external ears normal, oropharynx moist, no oral exudates, nose normal. [] Eyes: PERRLA, EOMI, conjunctiva normal, no discharge. Bilateral periorbital edema. Neck: Normal range of motion, no tenderness, supple, no stridor. [] Cardiovascular:Heart rate regular rhythm, no murmur [] Lungs & Thorax: Bilateral breath sounds decreased to auscultation, no air movement on the left lower lobe. Abdomen: Bowel sounds normal, soft, no tenderness, no masses, no pulsatile masses. [] Skin: Warm, dry, no erythema, no rash. [] Back: No tenderness, no CVA tenderness. [] Extremities: No tenderness, no cyanosis, no clubbing, ROM intact, pitting edema in lower extremity 3+ Neurologic: Alert and oriented X 3, normal motor function, normal sensory function, no focal deficits noted. [] Psychologic: Affect normal, judgement normal, mood normal. [] Current Patient Data: Labs: Laboratory Tests Test 04/25/20 13:20 04/25/20 13:41 Urine Collection Type Unknown Urine Color Yellow Urine Clarity Clear Urine pH 8.5 (<5.0-8.0) Urine Specific Brutus 1.010 (1.000-1.030) Urine Protein 100 mg/dL (NEG-TRACE) Urine Glucose (UA) 250 mg/dL (NEG) Urine Ketones (Stick) Negative mg/dL (NEG) Urine Blood Negative (NEG) Urine Nitrite Negative (NEG) Urine Bilirubin Negative (NEG) Urine Urobilinogen Dipstick 2.0 mg/dL (0.2 mg/dL) Urine Leukocyte Esterase Negative (NEG) Urine RBC 0 /HPF (0-2) Urine WBC 0 /HPF (0-4) Urine Squamous Epithelial Cells Occ /LPF Urine Bacteria 0 /HPF (0-FEW) White Blood Count 8.1 x10^3/uL (4.0-11.0) Red Blood Count 3.91 x10^6/uL (3.50-5.40) Hemoglobin 10.7 g/dL (12.0-15.5) L Hematocrit 33.5 % (36.0-47.0) L Mean Corpuscular Volume 86 fL (79-100) Mean Corpuscular Hemoglobin 27 pg (25-35) Mean Corpuscular Hemoglobin Concent 32 g/dL (31-37) Red Cell Distribution Width 16.6 % (11.5-14.5) H Platelet Count 233 x10^3/uL (140-400) Neutrophils (%) (Auto) 83 % (31-73) H Lymphocytes (%) (Auto) 8 % (24-48) L Monocytes (%) (Auto) 8 % (0-9) Eosinophils (%) (Auto) 1 % (0-3) Basophils (%) (Auto) 1 % (0-3) Neutrophils # (Auto) 6.7 x10^3/uL (1.8-7.7) Lymphocytes # (Auto) 0.7 x10^3/uL (1.0-4.8) L Monocytes # (Auto) 0.6 x10^3/uL (0.0-1.1) Eosinophils # (Auto) 0.0 x10^3/uL (0.0-0.7) Basophils # (Auto) 0.0 x10^3/uL (0.0-0.2) Sodium Level 136 mmol/L (136-145) Potassium Level 3.7 mmol/L (3.5-5.1) Chloride Level 95 mmol/L (98-107) L Carbon Dioxide Level 40 mmol/L (21-32) H Anion Gap 1 (6-14) L Blood Urea Nitrogen 7 mg/dL (7-20) Creatinine 0.7 mg/dL (0.6-1.0) Estimated GFR (Cockcroft-Gault) 101.3 BUN/Creatinine Ratio 10 (6-20) Glucose Level 172 mg/dL (70-99) H Calcium Level 9.5 mg/dL (8.5-10.1) Total Bilirubin 0.9 mg/dL (0.2-1.0) Aspartate Amino Transferase (AST) 15 U/L (15-37) Alanine Aminotransferase (ALT) 25 U/L (14-59) Alkaline Phosphatase 97 U/L (46-116) Troponin I Quantitative < 0.017 ng/mL (0.000-0.055) LR-Pij-J-Type Natriuretic Peptide 3849 pg/mL (0-124) H Total Protein 7.8 g/dL (6.4-8.2) Albumin 3.4 g/dL (3.4-5.0) Albumin/Globulin Ratio 0.8 (1.0-1.7) L Laboratory Tests 04/25/20 13:41 Laboratory Tests 04/25/20 13:41 Vital Signs: Vital Signs Date Time Temp Pulse Resp B/P (MAP) Pulse Ox O2 Delivery O2 Flow Rate FiO2 04/25/20 15:23 83 215/93 04/25/20 14:30 18 99 Nasal Cannula 2.0 04/25/20 13:36 96.4 96.4 EKG: EKG: EKG was done at 1327, heart rate of 89 bpm, sinus rhythm, no ST segment elevation Radiology/Procedures: Radiology/Procedures: [][facility] [address] [place] [address] IMAGING REPORT Signed PATIENT: GRETCHEN BONILLA EACCOUNT: [id number] : 1955 LOCATION: ER AGE: 65 SEX: F EXAM STATUS: REG ER ORD. PHYSICIAN: ANDREW RUCKER DO REASON: SOA PROCEDURE: PORTABLE CHEST 1V Exam performed: One view chest. Indication: Reason: SOA / Spl. Instructions: / History: Date of Service: 04/25/2020 1:39 PM Comparison: One view chest from 04/13/2020. Single AP upright portable view chest findings: Cardiomediastinal silhouette is enlarged, however stable. Previous median sternotomy. Pulmonary vascularity appears mildly congested. Coarse interstitial markings are seen in both lungs similar to prior study. No acute infiltrates, effusion or pneumothorax is detected. The bony structures are normal. Impression: Stable cardiomegaly with mild increased central vascular congestion. Electronically signed by: Amee Chapman MD (04/25/2020 2:18 PM) [id number] DICTATED and SIGNED BY: AMEE CHAPMAN MD DATE: 04/25/20 [id number] Course & Med Decision Making: Course & Med Decision Making Pertinent Labs and Imaging studies reviewed. (See chart for details) Patient is a 65-year-old female who presented to ER due to trouble breathing with exertion work-up included lab and chest x-ray show worsening pulmonary edema, increased BNP level, hypertensive urgency. Patient was given Lasix and antihypertensive medication in the ER, however her blood pressure continued to be elevated. Patient will be admitted to hospital for further evaluation and treatment discussed with Dr. Carpenter who agreed to admit the patient. Dragon Disclaimer: Dragon Disclaimer: This electronic medical record was generated, in whole or in part, using a voice recognition dictation system. Departure Departure Impression: Primary Impression: Acute exacerbation of CHF (congestive heart failure) Additional Impression: Hypertensive urgency Disposition: 09 ADMITTED INPT THIS HOSP Admitting Physician: [facility] (Dr. Carpenter) Condition: STABLE Referrals: NO PCP (PCP) ANDREW RUCKER DO Apr 25, 2020 15:30
[2020-04-25] MEDS ORDERED: NITROGLYCERIN OINT 1 GM PACKET. TP ONE (15:45)
[2020-04-25] MEDS ORDERED: MORPHINE SULFATE 4 MG/ML VIAL. IV ONE (16:45)
[2020-04-25] MEDS ORDERED: 0.9 % SODIUM CHLORIDE 10 ML DISP.SYRIN. IV PRN (17:15)
[2020-04-25] MEDS ORDERED: NON FORMULARY ITEM (Albuterol Sulfate (Ventolin Hfa Inhaler) 2 PUFF) INH SCH ×2 (17:15→21:00)
[2020-04-25] MEDS ORDERED: guaiFENesin DM 200MG/20MG 10 ML SYRUP PO PRN (17:15)
[2020-04-25] MEDS ORDERED: NITROGLYCERIN SUBLINGUAL 0.4 MG BOTTLE OF 25. SL PRN (17:15)
[2020-04-25] MEDS ORDERED: DEXTROSE 50% 25 GM / 50ML DISP.SYRIN. IV PRN (18:15)
[2020-04-25] MEDS ORDERED: ALBUTEROL SULFATE 2.5 MG/3 ML NEBU. NEB PRN (18:15)
[2020-04-25 18:21] VITALS: BP 193/79
[2020-04-25] MEDS: POTASSIUM CHLORIDE 20 MEQ TABLET.ER. PO SCH (18:29)
[2020-04-25] MEDS: CARVEDILOL 12.5 MG TABLET. PO SCH (18:29)
[2020-04-25] MEDS: oxyCODONE/APAP 10/325 1 TAB TABLET PO PRN (18:29)
[2020-04-25] MEDS: BUMETANIDE 1 MG/4 ML VIAL. IV SCH (18:30)
[2020-04-25] MEDS: INSULIN LISPRO 300 UNITS/3 ML VIAL. SQ SCH (18:30)
[2020-04-25] MEDS: ALBUTEROL SULFATE 2.5 MG/3 ML NEBU. NEB SCH (19:44)
--- NOTE | 2020-04-25 20:24 | PDOC1 ---
History and Physical Date of Admission Date of Admission 04/25/2020 Identification/Chief Complaint Problems: (1) Acute exacerbation of CHF (congestive heart failure) Source Source: Chart review, Patient History of Present Illness History of Present Illness Patient is a 65 year old female with past medical history of chronic congestive heart failure who was in her usual state of health until ore or less 5 ays prior to her admission when she started noticing edema over her lower extremities. The patient denies dietary transgressions no changes to her medications recently and she has been adherent to her medications. Patient denies chest pain palpitation, no shortness of breath, no headache, no recent URTI no sick contacts no pleurisy reported, no nausea vomiting no diaphoresis nor sensation of impending doom. Patient was brought to the ER due to the progressive nature of her dyspnea. She is being admitted for CHF exacerbation Patient also presented hypertensive urgency as reported by ER physician but she denies headache blurred vision nor chest pressure. Plan of care explained in detail. I have answered all questions to the best of my abilities. ER report as follows: Patient is a 65 year old female who presented to ER for evaluation of trouble breathing that is getting worse for last 3 days. Her symptom is worse with exertion. Patient denies any chest pain, no abdominal pain, no nausea vomiting. Patient denies any cough or fever. Patient has history of CHF, and history of COPD, she is on oxygen at home. Patient was admitted here last month for the same problem. Patient says she feels like she is gaining more fluid. Past Medical History Cardiovascular: CAD, CHF, HTN, NH, Hyperlipidemia, Other Pulmonary: Bronchitis, COPD CENTRAL NERVOUS SYSTEM: Periperal neuropathy GI: GERD Heme/Onc: No pertinent hx Hepatobiliary: Cholelithiasis Psych: No pertinent hx Rheumatologic: No pertinent hx Infectious disease: No pertinent hx Renal/: Chronic renal insuff Endocrine: Diabetes Past Surgical History Past Surgical History: Pacemaker, Appendectomy, Cholecystectomy, CABG, Total knee replacement, Hysterectomy Family History Family History: Heart Disease Family History: Parent Social History ALCOHOL: none Drugs: None Current Problem List Problem List Problems Medical Problems: (1) Acute exacerbation of CHF (congestive heart failure) Status: Acute (2) Hypertensive urgency Status: Acute Current Medications Current Medications Current Medications Medications (Trade) Dose Ordered Sig/Susan Start Time Stop Time Status Last Admin Dose Admin Albuterol Sulfate (Ventolin Neb Soln) 2.5 mg PRN Q6HRS PRN 04/25/20 18:15 Amlodipine Besylate (Norvasc) 5 mg DAILY 04/26/20 09:00 Aspirin (Ecotrin) 81 mg DAILY 04/26/20 09:00 Atorvastatin Calcium (Lipitor) 20 mg HS 04/25/20 21:00 Benzonatate (Tessalon Perle) 100 mg [id number] 04/25/20 21:00 Bumetanide (Bumex) 1 mg [id number] 04/25/20 18:30 04/25/20 18:30 1 MG Calcium/Vitamin D (Oscal D 500mg/ 200uts) 1 tab DAILY 04/26/20 09:00 Capsaicin (Zostrix) 1 tre TID 04/25/20 21:00 Carvedilol (Coreg) 12.5 mg BIDWMEALS 04/25/20 18:30 04/25/20 18:29 12.5 MG Clonazepam (KlonoPIN) 0.5 mg TID 04/25/20 21:00 Clopidogrel Bisulfate (Plavix) 75 mg DAILY 04/26/20 09:00 Dextrose (Dextrose 50%-Water Syringe) 12.5 gm PRN Q15MIN PRN 04/25/20 18:15 Enoxaparin Sodium (Lovenox 40mg Syringe) 40 mg Q24H 04/25/20 21:00 Fluoxetine HCl (PROzac) 20 mg DAILY 04/26/20 09:00 Furosemide (Lasix) 40 mg 1X ONCE 04/25/20 14:45 04/25/20 14:46 DC 04/25/20 15:22 40 MG Glimepiride (Amaryl) 2 mg DAILY 04/26/20 09:00 Guaifenesin (Robitussin Dm) 10 ml PRN Q6HRS PRN 04/25/20 17:15 Hydralazine HCl (Apresoline Inj) 20 mg 1X ONCE 04/25/20 15:15 04/25/20 15:16 DC 04/25/20 15:23 20 MG Insulin Glargine (Lantus Syringe) 8 unit QHS 04/25/20 21:00 Insulin Human Lispro (HumaLOG VIAL for OP,RR ONLY) TIDWMEALS 04/26/20 08:00 UNV Insulin Human Lispro (HumaLOG) 0-5 UNITS TIDWMEALS 04/25/20 18:30 Isosorbide Mononitrate (Imdur) 30 mg DAILY 04/26/20 09:00 Lidocaine (Lidoderm) 1 patch DAILY 04/26/20 09:00 Losartan Potassium (Cozaar) 100 mg DAILY 04/26/20 09:00 Morphine Sulfate (Morphine Sulfate) 4 mg 1X ONCE 04/25/20 16:45 04/25/20 16:48 DC 04/25/20 17:03 4 MG Nitroglycerin (Nitro-Bid Oint) 1 inch 1X ONCE 04/25/20 15:45 04/25/20 15:46 DC 04/25/20 15:58 1 INCH Nitroglycerin (Nitrostat) 0.4 mg PRN Q5MIN PRN 04/25/20 17:15 Non-Formulary Medication (Albuterol Sulfate (Ventolin Hfa Inhaler)) 2 puff QID 04/25/20 21:00 UNV Non-Formulary Medication (Bumetanide ) 2 mg BID 04/25/20 21:00 UNV Ondansetron HCl (Zofran) 4 mg 1X ONCE 04/25/20 15:15 04/25/20 15:16 DC 04/25/20 15:20 4 MG Oxycodone/ Acetaminophen (Percocet 10/325) 1 tab PRN Q6HRS PRN 04/25/20 17:15 04/25/20 18:29 1 TAB Pantoprazole Sodium (Protonix) 40 mg DAILYAC 04/26/20 07:30 Potassium Chloride (Klor-Con) 20 meq BIDWMEALS 04/25/20 18:30 04/25/20 18:29 20 MEQ Sodium Chloride (Normal Saline Flush) 3 ml QSHIFT PRN 04/25/20 17:15 Spironolactone (Aldactone) 50 mg HS 04/25/20 21:00 Trazodone HCl (Desyrel) 50 mg HS 04/25/20 21:00 Allergies Allergies Allergies Coded Allergies Type Severity Reaction Last Updated Verified No Known Drug Allergies 03/13/19 No ROS Review of System CONSTITUTIONAL: No fever or chills EYES: No recent changes SKIN: No rash or itching CARDIOVASCULAR: No chest pain, syncope, palpitations, or edema RESPIRATORY: No SOB or cough GASTROINTESTINAL: No nausea, vomiting or abdominal pain NEUROLOGICAL: No headaches or weakness ENDOCRINE: No cold or heat intolerance GENITOURINARY: No urgency or frequency of urination MUSCULOSKELETAL: No back pain or joint pain LYMPHATICS: No enlarged lymph nodes PSYCHIATRIC: No anxiety or depression Physical Exam Physical Exam GEN.: No apparent distress. Alert and oriented. HEENT: Head is normocephalic, atraumatic NECK: Supple. LUNGS: Clear to auscultation. HEART: RRR, S1, S2 present. Peripheral pulses intact ABDOMEN: Soft, nontender. Positive bowel sounds. Ventral hernia EXTREMITIES: Without any cyanosis. NEUROLOGIC: Normal speech, normal tone PSYCHIATRIC: Normal affect, normal mood. SKIN: No ulcerations Vitals Vitals Vital Signs Date Time Temp Pulse Resp B/P (MAP) Pulse Ox O2 Delivery O2 Flow Rate FiO2 04/25/20 19:47 97 Nasal Cannula 3.0 04/25/20 18:29 110 04/25/20 18:21 99.7 18 193/79 (117) 99.7 Labs Labs Laboratory Tests Test 04/25/20 13:20 04/25/20 13:41 04/25/20 18:25 Urine Collection Type Unknown Urine Color Yellow Urine Clarity Clear Urine pH 8.5 (<5.0-8.0) Urine Specific [place] 1.010 (1.000-1.030) Urine Protein 100 mg/dL (NEG-TRACE) Urine Glucose (UA) 250 mg/dL (NEG) Urine Ketones (Stick) Negative mg/dL (NEG) Urine Blood Negative (NEG) Urine Nitrite Negative (NEG) Urine Bilirubin Negative (NEG) Urine Urobilinogen Dipstick 2.0 mg/dL (0.2 mg/dL) Urine Leukocyte Esterase Negative (NEG) Urine RBC 0 /HPF (0-2) Urine WBC 0 /HPF (0-4) Urine Squamous Epithelial Cells Occ /LPF Urine Bacteria 0 /HPF (0-FEW) White Blood Count 8.1 x10^3/uL (4.0-11.0) Red Blood Count 3.91 x10^6/uL (3.50-5.40) Hemoglobin 10.7 g/dL (12.0-15.5) Hematocrit 33.5 % (36.0-47.0) Mean Corpuscular Volume 86 fL (79-100) Mean Corpuscular Hemoglobin 27 pg (25-35) Mean Corpuscular Hemoglobin Concent 32 g/dL (31-37) Red Cell Distribution Width 16.6 % (11.5-14.5) Platelet Count 233 x10^3/uL (140-400) Neutrophils (%) (Auto) 83 % (31-73) Lymphocytes (%) (Auto) 8 % (24-48) Monocytes (%) (Auto) 8 % (0-9) Eosinophils (%) (Auto) 1 % (0-3) Basophils (%) (Auto) 1 % (0-3) Neutrophils # (Auto) 6.7 x10^3/uL (1.8-7.7) Lymphocytes # (Auto) 0.7 x10^3/uL (1.0-4.8) Monocytes # (Auto) 0.6 x10^3/uL (0.0-1.1) Eosinophils # (Auto) 0.0 x10^3/uL (0.0-0.7) Basophils # (Auto) 0.0 x10^3/uL (0.0-0.2) Sodium Level 136 mmol/L (136-145) Potassium Level 3.7 mmol/L (3.5-5.1) Chloride Level 95 mmol/L (98-107) Carbon Dioxide Level 40 mmol/L (21-32) Anion Gap 1 (6-14) Blood Urea Nitrogen 7 mg/dL (7-20) Creatinine 0.7 mg/dL (0.6-1.0) Estimated GFR (Cockcroft-Gault) 101.3 BUN/Creatinine Ratio 10 (6-20) Glucose Level 172 mg/dL (70-99) Calcium Level 9.5 mg/dL (8.5-10.1) Total Bilirubin 0.9 mg/dL (0.2-1.0) Aspartate Amino Transf (AST/SGOT) 15 U/L (15-37) Alanine Aminotransferase (ALT/SGPT) 25 U/L (14-59) Alkaline Phosphatase 97 U/L (46-116) Troponin I Quantitative < 0.017 ng/mL (0.000-0.055) BK-See-W-Type Natriuretic Peptide 3849 pg/mL (0-124) Total Protein 7.8 g/dL (6.4-8.2) Albumin 3.4 g/dL (3.4-5.0) Albumin/Globulin Ratio 0.8 (1.0-1.7) Glucose (Fingerstick) 147 mg/dL (70-99) Laboratory Tests Test 04/25/20 13:20 04/25/20 13:41 04/25/20 18:25 Urine Collection Type Unknown Urine Color Yellow Urine Clarity Clear Urine pH 8.5 (<5.0-8.0) Urine Specific [place] 1.010 (1.000-1.030) Urine Protein 100 mg/dL (NEG-TRACE) Urine Glucose (UA) 250 mg/dL (NEG) Urine Ketones (Stick) Negative mg/dL (NEG) Urine Blood Negative (NEG) Urine Nitrite Negative (NEG) Urine Bilirubin Negative (NEG) Urine Urobilinogen Dipstick 2.0 mg/dL (0.2 mg/dL) Urine Leukocyte Esterase Negative (NEG) Urine RBC 0 /HPF (0-2) Urine WBC 0 /HPF (0-4) Urine Squamous Epithelial Cells Occ /LPF Urine Bacteria 0 /HPF (0-FEW) White Blood Count 8.1 x10^3/uL (4.0-11.0) Red Blood Count 3.91 x10^6/uL (3.50-5.40) Hemoglobin 10.7 g/dL (12.0-15.5) Hematocrit 33.5 % (36.0-47.0) Mean Corpuscular Volume 86 fL (79-100) Mean Corpuscular Hemoglobin 27 pg (25-35) Mean Corpuscular Hemoglobin Concent 32 g/dL (31-37) Red Cell Distribution Width 16.6 % (11.5-14.5) Platelet Count 233 x10^3/uL (140-400) Neutrophils (%) (Auto) 83 % (31-73) Lymphocytes (%) (Auto) 8 % (24-48) Monocytes (%) (Auto) 8 % (0-9) Eosinophils (%) (Auto) 1 % (0-3) Basophils (%) (Auto) 1 % (0-3) Neutrophils # (Auto) 6.7 x10^3/uL (1.8-7.7) Lymphocytes # (Auto) 0.7 x10^3/uL (1.0-4.8) Monocytes # (Auto) 0.6 x10^3/uL (0.0-1.1) Eosinophils # (Auto) 0.0 x10^3/uL (0.0-0.7) Basophils # (Auto) 0.0 x10^3/uL (0.0-0.2) Sodium Level 136 mmol/L (136-145) Potassium Level 3.7 mmol/L (3.5-5.1) Chloride Level 95 mmol/L (98-107) Carbon Dioxide Level 40 mmol/L (21-32) Anion Gap 1 (6-14) Blood Urea Nitrogen 7 mg/dL (7-20) Creatinine 0.7 mg/dL (0.6-1.0) Estimated GFR (Cockcroft-Gault) 101.3 BUN/Creatinine Ratio 10 (6-20) Glucose Level 172 mg/dL (70-99) Calcium Level 9.5 mg/dL (8.5-10.1) Total Bilirubin 0.9 mg/dL (0.2-1.0) Aspartate Amino Transf (AST/SGOT) 15 U/L (15-37) Alanine Aminotransferase (ALT/SGPT) 25 U/L (14-59) Alkaline Phosphatase 97 U/L (46-116) Troponin I Quantitative < 0.017 ng/mL (0.000-0.055) AQ-Jrm-B-Type Natriuretic Peptide 3849 pg/mL (0-124) Total Protein 7.8 g/dL (6.4-8.2) Albumin 3.4 g/dL (3.4-5.0) Albumin/Globulin Ratio 0.8 (1.0-1.7) Glucose (Fingerstick) 147 mg/dL (70-99) Images Images [facility] [address] [place], [place] [id number] IMAGING REPORT Signed PATIENT: GRETCHEN BONILLA EACCOUNT: [id number] : 1955 LOCATION: ER AGE: 65 SEX: F EXAM STATUS: REG ER ORD. PHYSICIAN: ANDREW RUCKER DO REASON: SOA PROCEDURE: PORTABLE CHEST 1V Exam performed: One view chest. Indication: Reason: SOA / Spl. Instructions: / History: Date of Service: 04/25/2020 1:39 PM Comparison: One view chest from 04/13/2020. Single AP upright portable view chest findings: Cardiomediastinal silhouette is enlarged, however stable. Previous median sternotomy. Pulmonary vascularity appears mildly congested. Coarse interstitial markings are seen in both lungs similar to prior study. No acute infiltrates, effusion or pneumothorax is detected. The bony structures are normal. Impression: Stable cardiomegaly with mild increased central vascular congestion. Electronically signed by: Amee Chapman MD (04/25/2020 2:18 PM) [id number] VTE Prophylaxis Ordered VTE Prophylaxis Devices: Yes VTE Pharmacological Prophylaxi: Yes Assessment/Plan Assessment/Plan Acute exacerbation of chronic combined heart failure History of CAD s/p CABG Ventral hernia with no concerning signs Normocytic anemia History of diabetes mellitus tyep 2 insulin requiring Obesity with a BMI of 39 History of tobacco abuse with subsequent COPD, no history of oxygen therapy at home. Plan: CHF will be addressed with diuresis resume home medciations strict i and o reassess in the am labs in am further recommendations based on clinical course Justifications for Admission Other Justification Problem Qualifiers (1) Acute exacerbation of CHF (congestive heart failure): Heart failure type: combined systolic and diastolic Qualified Codes: I50.43 - Acute on chronic combined systolic (congestive) and diastolic (congestive) heart failure LIZBET MAC MD Apr 25, 2020 20:24
[2020-04-25] MEDS ORDERED: BUMETANIDE 2 MG PO SCH (21:00)
[2020-04-25] MEDS: traZODone 50 MG TABLET. PO SCH (22:03)
[2020-04-25] MEDS: SPIRONOLACTONE 25 MG TABLET PO SCH (22:03)
[2020-04-25] MEDS: ATORVASTATIN CALCIUM 20 MG TABLET PO SCH (22:03)
[2020-04-25] MEDS: clonazePAM 0.5 MG TABLET PO SCH (22:03)
[2020-04-25] MEDS: BENZONATATE 100 MG CAPSULE. PO SCH (22:04)
[2020-04-25] MEDS: CAPSAICIN 0.025% TOPICAL CREAM 60GM TUBE. TP SCH (22:05)
[2020-04-25] MEDS: ENOXAPARIN 40 MG/0.4 ML SYRINGE. SQ SCH (22:05)
[2020-04-25] MEDS: INSULIN GLARGINE SYRINGE. SQ SCH (22:14)
[2020-04-25 22:50] VITALS: BP 129/100
[2020-04-26] MEDS: oxyCODONE/APAP 10/325 1 TAB TABLET PO PRN ×4 (00:17→20:10)
--- NOTE | 2020-04-26 01:04 | EKG ---
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
[2020-04-26 02:22] VITALS: BP 121/68
[2020-04-26] MEDS: BUMETANIDE 1 MG/4 ML VIAL. IV SCH ×2 (06:16→17:45)
[2020-04-26 07:00] VITALS: BP 142/61
[2020-04-26] MEDS: ALBUTEROL SULFATE 2.5 MG/3 ML NEBU. NEB SCH ×4 (07:26→19:28)
[2020-04-26] MEDS: INSULIN LISPRO 300 UNITS/3 ML VIAL. SQ SCH ×3 (08:00→17:00)
[2020-04-26] MEDS ORDERED: INSULIN LISPRO 100 UNIT/ML 3ML VIAL for OP,RR ONLY. SQ SCH (08:00)
[2020-04-26] MEDS: ASPIRIN ENTERIC COATED 81 MG TABLET.DR. PO SCH (09:15)
[2020-04-26] MEDS: LOSARTAN POTASSIUM 50 MG TABLET. PO SCH (09:30)
[2020-04-26] MEDS: BENZONATATE 100 MG CAPSULE. PO SCH ×3 (09:31→20:08)
[2020-04-26] MEDS: FLUoxetine HCL 20 MG CAPSULE PO SCH (09:31)
[2020-04-26] MEDS: CLOPIDOGREL BISULFATE 75 MG TABLET PO SCH (09:31)
[2020-04-26] MEDS: CALCIUM CARB/VIT D3 500/200 TABLET. PO SCH (09:31)
[2020-04-26] MEDS: ISOSORBIDE MONONITRATE ER 30 MG TAB.ER.24H PO SCH (09:31)
[2020-04-26] MEDS: CARVEDILOL 12.5 MG TABLET. PO SCH ×2 (09:32→17:45)
[2020-04-26] MEDS: GLIMEPIRIDE 2 MG TABLET. PO SCH (09:32)
[2020-04-26] MEDS: clonazePAM 0.5 MG TABLET PO SCH (09:32)
[2020-04-26] MEDS: PANTOPRAZOLE 40 MG TABLET.DR. PO SCH (09:32)
[2020-04-26] MEDS: POTASSIUM CHLORIDE 20 MEQ TABLET.ER. PO SCH ×2 (09:32→17:44)
[2020-04-26] MEDS: LIDOCAINE (700MG/PATCH) PATCH. TD SCH (09:36)
[2020-04-26] MEDS: CAPSAICIN 0.025% TOPICAL CREAM 60GM TUBE. TP SCH ×3 (09:37→20:10)
--- NOTE | 2020-04-26 10:12 | PDOC ---
[facility] PROGRESS NOTE Date of Service DOS: DATE: 04/26/20 TIME: 10:10 Chief Complaint Chief Complaint A/P: Acute on chronic Chronic combined systolic and diastolic heart failure - on home bumex. IV now Shortness of breath - Likely CHF exacerbation Accelerated Hypertension - will get back on home medication. Chronic abdominal pain - Possibly marijuana hyperemesis syndrome. Chest pain - likely demand from opioid hyperalgesia vs referred right shoulder or GI pain. Will maintain telemetry and trend troponins given her high risk and frequent hospitalizations SSS s/p PPM - Stable Hyperlipidemia - Continue statin therapy Chronic stable angina Akinetic distal anterior wall and the entire apical wall with ejection fraction estimated at 40%.per cath 05/12 Morbid obesity Diabetes type 2 - will repeat A1c. Sliding scale GERD - cont PPI CAD WITH HX STENTS - recent cardiac catheterization 04/2018 showed patent GARCIA to LAD and patent SVG to OM. No further cardiac workup is indicated Chronic hypoxia - likely cor pulmonale History of Present Illness History of Present Illness Ms Laguna is a 64yo F w/ PMHx HTN, SSS, HLD, obesity, chronic pain syndrome, chronic systolic CHF, cor pulmonale with hypoxia on 3L NCO2 who presented with trouble breathing that is getting worse for last 3 days. Her symptom is worse with exertion. Denies nausea, diarrhea, abdominal pain, diarrhea, dysuria, fever. She also endorses chest tightness that is baseline, worse with deep breath. Patient is on diuretics at home of Bumex 2 mg twice daily. She has multiple admissions in the past. Notes she feels she is retaining fluid. Was admitted for further care. Asking for pain medications for chronic back pain. Still short of breath, swollen. Drowsy. Vitals/I&O Vitals/I&O: Vital Signs Date Time Temp Pulse Resp B/P (MAP) Pulse Ox O2 Delivery O2 Flow Rate FiO2 04/26/20 09:32 59 142/61 04/26/20 07:28 Nasal Cannula 4.0 04/26/20 07:17 22 98 04/26/20 07:00 98.2 98.2 I & O 04/25/20 04/25/20 04/26/20 15:00 23:00 07:00 Intake Total 200 ml 400 ml Output Total 125 ml Balance -125 ml 200 ml 400 ml Physical Exam Lungs: Clear Labs Labs: Laboratory Tests Test 04/25/20 13:20 04/25/20 13:41 04/25/20 18:25 04/25/20 20:41 Urine Collection Type Unknown Urine Color Yellow Urine Clarity Clear Urine pH 8.5 (<5.0-8.0) Urine Specific [place] 1.010 (1.000-1.030) Urine Protein 100 mg/dL (NEG-TRACE) Urine Glucose (UA) 250 mg/dL (NEG) Urine Ketones (Stick) Negative mg/dL (NEG) Urine Blood Negative (NEG) Urine Nitrite Negative (NEG) Urine Bilirubin Negative (NEG) Urine Urobilinogen Dipstick 2.0 mg/dL (0.2 mg/dL) Urine Leukocyte Esterase Negative (NEG) Urine RBC 0 /HPF (0-2) Urine WBC 0 /HPF (0-4) Urine Squamous Epithelial Cells Occ /LPF Urine Bacteria 0 /HPF (0-FEW) White Blood Count 8.1 x10^3/uL (4.0-11.0) Red Blood Count 3.91 x10^6/uL (3.50-5.40) Hemoglobin 10.7 g/dL (12.0-15.5) Hematocrit 33.5 % (36.0-47.0) Mean Corpuscular Volume 86 fL (79-100) Mean Corpuscular Hemoglobin 27 pg (25-35) Mean Corpuscular Hemoglobin Concent 32 g/dL (31-37) Red Cell Distribution Width 16.6 % (11.5-14.5) Platelet Count 233 x10^3/uL (140-400) Neutrophils (%) (Auto) 83 % (31-73) Lymphocytes (%) (Auto) 8 % (24-48) Monocytes (%) (Auto) 8 % (0-9) Eosinophils (%) (Auto) 1 % (0-3) Basophils (%) (Auto) 1 % (0-3) Neutrophils # (Auto) 6.7 x10^3/uL (1.8-7.7) Lymphocytes # (Auto) 0.7 x10^3/uL (1.0-4.8) Monocytes # (Auto) 0.6 x10^3/uL (0.0-1.1) Eosinophils # (Auto) 0.0 x10^3/uL (0.0-0.7) Basophils # (Auto) 0.0 x10^3/uL (0.0-0.2) Sodium Level 136 mmol/L (136-145) Potassium Level 3.7 mmol/L (3.5-5.1) Chloride Level 95 mmol/L (98-107) Carbon Dioxide Level 40 mmol/L (21-32) Anion Gap 1 (6-14) Blood Urea Nitrogen 7 mg/dL (7-20) Creatinine 0.7 mg/dL (0.6-1.0) Estimated GFR (Cockcroft-Gault) 101.3 BUN/Creatinine Ratio 10 (6-20) Glucose Level 172 mg/dL (70-99) Calcium Level 9.5 mg/dL (8.5-10.1) Total Bilirubin 0.9 mg/dL (0.2-1.0) Aspartate Amino Transf (AST/SGOT) 15 U/L (15-37) Alanine Aminotransferase (ALT/SGPT) 25 U/L (14-59) Alkaline Phosphatase 97 U/L (46-116) Troponin I Quantitative < 0.017 ng/mL (0.000-0.055) WU-Nlj-[id number]-Type Natriuretic Peptide 3849 pg/mL (0-124) Total Protein 7.8 g/dL (6.4-8.2) Albumin 3.4 g/dL (3.4-5.0) Albumin/Globulin Ratio 0.8 (1.0-1.7) Glucose (Fingerstick) 147 mg/dL (70-99) 223 mg/dL (70-99) Test 04/26/20 07:09 Glucose (Fingerstick) 114 mg/dL (70-99) Assessment and Plan Assessmemt and Plan Problems Medical Problems: (1) Acute exacerbation of CHF (congestive heart failure) Status: Acute (2) Hypertensive urgency Status: Acute Comment Review of Relevant I have reviewed the following items nolan (where applicable) has been applied. Medications: Current Medications Medications (Trade) Dose Ordered Sig/Susan Route PRN Reason Start Time Stop Time Status Last Admin Dose Admin Furosemide (Lasix) 40 mg 1X ONCE IVP 04/25/20 14:45 04/25/20 14:46 DC 04/25/20 15:22 Hydralazine HCl (Apresoline Inj) 20 mg 1X ONCE IVP 04/25/20 15:15 04/25/20 15:16 DC 04/25/20 15:23 Ondansetron HCl (Zofran) 4 mg 1X ONCE IVP 04/25/20 15:15 04/25/20 15:16 DC 04/25/20 15:20 Nitroglycerin (Nitro-Bid Oint) 1 inch 1X ONCE TP 04/25/20 15:45 04/25/20 15:46 DC 04/25/20 15:58 Morphine Sulfate (Morphine Sulfate) 4 mg 1X ONCE IV 04/25/20 16:45 04/25/20 16:48 DC 04/25/20 17:03 Bumetanide (Bumex) 1 mg [id number] IV 04/25/20 18:30 04/26/20 06:16 Enoxaparin Sodium (Lovenox 40mg Syringe) 40 mg Q24H SQ 04/25/20 21:00 04/25/20 22:05 Amlodipine Besylate (Norvasc) 5 mg DAILY PO 04/26/20 09:00 04/26/20 09:31 Aspirin (Ecotrin) 81 mg DAILY PO 04/26/20 09:00 04/26/20 09:15 Atorvastatin Calcium (Lipitor) 20 mg HS PO 04/25/20 21:00 04/25/20 22:03 Benzonatate (Tessalon Perle) 100 mg [id number] PO 04/25/20 21:00 04/26/20 09:31 Calcium/Vitamin D (Oscal D 500mg/ 200uts) 1 tab DAILY PO 04/26/20 09:00 04/26/20 09:31 Capsaicin (Zostrix) 1 tre TID TP 04/25/20 21:00 04/26/20 09:37 Clopidogrel Bisulfate (Plavix) 75 mg DAILY PO 04/26/20 09:00 04/26/20 09:31 Fluoxetine HCl (PROzac) 20 mg DAILY PO 04/26/20 09:00 04/26/20 09:31 Glimepiride (Amaryl) 2 mg DAILY PO 04/26/20 09:00 04/26/20 09:32 Isosorbide Mononitrate (Imdur) 30 mg DAILY PO 04/26/20 09:00 04/26/20 09:31 Lidocaine (Lidoderm) 1 patch DAILY TD 04/26/20 09:00 04/26/20 09:36 Oxycodone/ Acetaminophen (Percocet 10/325) 1 tab PRN Q6HRS PRN PO PAIN 04/25/20 17:15 04/26/20 06:17 Pantoprazole Sodium (Protonix) 40 mg DAILYAC PO 04/26/20 07:30 04/26/20 09:32 Potassium Chloride (Klor-Con) 20 meq BIDWMEALS PO 04/25/20 18:30 04/26/20 09:32 Trazodone HCl (Desyrel) 50 mg HS PO 04/25/20 21:00 04/25/20 22:03 Carvedilol (Coreg) 12.5 mg BIDWMEALS PO 04/25/20 18:30 04/26/20 09:32 Clonazepam (KlonoPIN) 0.5 mg TID PO 04/25/20 21:00 04/26/20 09:32 Insulin Glargine (Lantus Syringe) 8 unit QHS SQ 04/25/20 21:00 04/25/20 22:14 Losartan Potassium (Cozaar) 100 mg DAILY PO 04/26/20 09:00 04/26/20 09:30 Spironolactone (Aldactone) 50 mg HS PO 04/25/20 21:00 04/25/20 22:03 Albuterol Sulfate (Ventolin Neb Soln) 2.5 mg RTQID NEB 04/25/20 20:00 04/26/20 07:26 Justifications for Admission Other Justification VENKAT ALEJANDRO MD Apr 26, 2020 10:12
[2020-04-26 10:37] VITALS: BP 143/41
--- NOTE | 2020-04-26 11:06 | NUR ---
SS following for discharge planning. SS reviewed pt chart and discussed with pt RN. Pt is from home alone and is currently requiring oxygen at two liters nasal canula. Pt has home oxygen. Pt being diuresed today. Discharge plan is to home when medically ready. SS will continue to follow for discharge planning.
[2020-04-26 14:37] VITALS: BP 100/43
[2020-04-26 19:14] VITALS: BP 105/41
[2020-04-26] MEDS: INSULIN GLARGINE SYRINGE. SQ SCH (20:07)
[2020-04-26] MEDS: ATORVASTATIN CALCIUM 20 MG TABLET PO SCH (20:08)
[2020-04-26] MEDS: ENOXAPARIN 40 MG/0.4 ML SYRINGE. SQ SCH (20:08)
[2020-04-26] MEDS: traZODone 50 MG TABLET. PO SCH (20:08)
[2020-04-26] MEDS: SPIRONOLACTONE 25 MG TABLET PO SCH (20:09)
[2020-04-26 22:43] VITALS: BP 88/46
[2020-04-27 03:11] VITALS: BP 124/54
[2020-04-27] MEDS: oxyCODONE/APAP 10/325 1 TAB TABLET PO PRN ×4 (03:15→20:44)
[2020-04-27 07:00] VITALS: BP 163/71
[2020-04-27] MEDS: ALBUTEROL SULFATE 2.5 MG/3 ML NEBU. NEB SCH ×4 (07:25→20:10)
[2020-04-27] MEDS: GLIMEPIRIDE 2 MG TABLET. PO SCH (09:27)
[2020-04-27] MEDS: FLUoxetine HCL 20 MG CAPSULE PO SCH (09:27)
[2020-04-27] MEDS: CALCIUM CARB/VIT D3 500/200 TABLET. PO SCH (09:27)
[2020-04-27] MEDS: BENZONATATE 100 MG CAPSULE. PO SCH ×3 (09:27→20:45)
[2020-04-27] MEDS: POTASSIUM CHLORIDE 20 MEQ TABLET.ER. PO SCH ×2 (09:27→17:40)
[2020-04-27] MEDS: PANTOPRAZOLE 40 MG TABLET.DR. PO SCH (09:27)
[2020-04-27] MEDS: ASPIRIN ENTERIC COATED 81 MG TABLET.DR. PO SCH (09:27)
[2020-04-27] MEDS: CLOPIDOGREL BISULFATE 75 MG TABLET PO SCH (09:27)
[2020-04-27] MEDS: ISOSORBIDE MONONITRATE ER 30 MG TAB.ER.24H PO SCH (09:28)
[2020-04-27] MEDS: CARVEDILOL 12.5 MG TABLET. PO SCH ×2 (09:30→17:41)
[2020-04-27] MEDS: BUMETANIDE 1 MG/4 ML VIAL. IV SCH (09:30)
[2020-04-27] MEDS: LOSARTAN POTASSIUM 50 MG TABLET. PO SCH (09:33)
[2020-04-27] MEDS: LIDOCAINE (700MG/PATCH) PATCH. TD SCH (09:34)
[2020-04-27] MEDS: INSULIN LISPRO 300 UNITS/3 ML VIAL. SQ SCH ×3 (09:36→17:43)
[2020-04-27] MEDS: CAPSAICIN 0.025% TOPICAL CREAM 60GM TUBE. TP SCH ×3 (09:36→20:46)
[2020-04-27 11:00] VITALS: BP 115/45
--- NOTE | 2020-04-27 11:27 | PDOC ---
[facility] [facility] PROGRESS NOTE Date of Service DOS: DATE: 04/27/20 TIME: 11:27 Chief Complaint Chief Complaint A/P: Acute on chronic Chronic combined systolic and diastolic heart failure - on home bumex. IV now Shortness of breath - Likely CHF exacerbation Accelerated Hypertension - will get back on home medication. Chronic abdominal pain - Possibly marijuana hyperemesis syndrome. Chest pain - likely demand from opioid hyperalgesia vs referred right shoulder or GI pain. Will maintain telemetry and trend troponins given her high risk and frequent hospitalizations SSS s/p PPM - Stable Hyperlipidemia - Continue statin therapy Chronic stable angina Akinetic distal anterior wall and the entire apical wall with ejection fraction estimated at 40%.per cath 05/12 Morbid obesity Diabetes type 2 - will repeat A1c. Sliding scale GERD - cont PPI CAD WITH HX STENTS - recent cardiac catheterization 04/2018 showed patent GARCIA to LAD and patent SVG to OM. No further cardiac workup is indicated Chronic hypoxia - likely cor pulmonale Excoriations on back - will apply mupirocin to skin FEN - cardiac diet PPX - lovenox FULL CODE Dispo - inpatient History of Present Illness History of Present Illness Ms Laguna is a 64yo F w/ PMHx HTN, SSS, HLD, obesity, chronic pain syndrome, chronic systolic CHF, cor pulmonale with hypoxia on 3L NCO2 who presented with trouble breathing that is getting worse for last 3 days. Her symptom is worse with exertion. Denies nausea, diarrhea, abdominal pain, diarrhea, dysuria, fever. She also endorses chest tightness that is baseline, worse with deep breath. Patient is on diuretics at home of Bumex 2 mg twice daily. She has multiple admissions in the past. Notes she feels she is retaining fluid. Was admitted for further care. 23: Asking for pain medications for chronic back pain. Still short of breath, swollen. Drowsy. Vitals/I&O Vitals/I&O: Vital Signs Date Time Temp Pulse Resp B/P (MAP) Pulse Ox O2 Delivery O2 Flow Rate FiO2 04/27/20 11:05 97 Nasal Cannula 2.0 04/27/20 09:35 60 163/71 04/27/20 07:00 98.1 16 98.1 I & O 04/26/20 04/26/20 04/27/20 15:00 23:00 07:00 Intake Total 240 ml 820 ml 200 ml Output Total 450 ml 100 ml 750 ml Balance -210 ml 720 ml -550 ml Physical Exam General: Alert, Oriented X3, Cooperative Heart: Regular rate, Normal S1, Normal S2 Lungs: Clear Abdomen: Normal bowel sounds, Soft Extremities: Other (1+ edema) Labs Labs: Laboratory Tests Test 04/26/20 16:09 04/26/20 20:05 04/27/20 07:35 Glucose (Fingerstick) 164 mg/dL (70-99) 172 mg/dL (70-99) 86 mg/dL (70-99) Assessment and Plan Assessmemt and Plan Problems Medical Problems: (1) Acute exacerbation of CHF (congestive heart failure) Status: Acute (2) Hypertensive urgency Status: Acute Comment Review of Relevant I have reviewed the following items nolan (where applicable) has been applied. Justifications for Admission Other Justification VENKAT ALEJANDRO MD Apr 27, 2020 11:27
--- NOTE | 2020-04-27 13:17 | NUR ---
SS following up with discharge planning. SS reviewed pt chart and discussed with pt RN. Pt is currently requiring oxygen at two liters nasal canula. Pt has home oxygen. Pt diuresing today. PT/OT recommended home. Probable discharge to home tomorrow. SS will continue to follow for discharge planning.
[2020-04-27 13:35] LABS: CALCIUM 9.7 mg/dL (8.5-10.1); CREATININE 1.2 mg/dL (0.6-1.0); GFR 54.4; MAGNESIUM 2.2 mg/dL (1.8-2.4); POTASSIUM 4.9 mmol/L (3.5-5.1)
[2020-04-27 14:48] VITALS: BP 130/52
[2020-04-27] MEDS: MUPIROCIN 2 % TOPICAL CREAM 30GM TUBE. TP SCH ×2 (15:43→20:45)
[2020-04-27 19:27] VITALS: BP 103/38
[2020-04-27] MEDS: SPIRONOLACTONE 25 MG TABLET PO SCH (20:45)
[2020-04-27] MEDS: ATORVASTATIN CALCIUM 20 MG TABLET PO SCH (20:45)
[2020-04-27] MEDS: traZODone 50 MG TABLET. PO SCH (20:45)
[2020-04-27] MEDS: ENOXAPARIN 40 MG/0.4 ML SYRINGE. SQ SCH (20:46)
[2020-04-27] MEDS: INSULIN GLARGINE SYRINGE. SQ SCH (20:47)
[2020-04-27 22:57] VITALS: BP 116/34
[2020-04-28] MEDS: oxyCODONE/APAP 10/325 1 TAB TABLET PO PRN ×5 (01:44→20:48)
[2020-04-28 02:53] VITALS: BP 112/40
[2020-04-28 07:00] VITALS: BP 126/40
[2020-04-28] MEDS: ALBUTEROL SULFATE 2.5 MG/3 ML NEBU. NEB SCH ×4 (07:30→19:30)
--- NOTE | 2020-04-28 07:35 | PDOC ---
[facility] [facility] PROGRESS NOTE Date of Service DOS: DATE: 04/28/20 TIME: 07:34 Chief Complaint Chief Complaint A/P: Acute on chronic chronic combined systolic and diastolic heart failure - IV bumex improved her Shortness of breath - likely CHF exacerbation Accelerated Hypertension - will get back on home medication. Chronic abdominal pain - Possibly marijuana hyperemesis syndrome. Chest pain - likely demand from opioid hyperalgesia vs referred right shoulder or GI pain. Will maintain telemetry and trend troponins given her high risk and frequent hospitalizations SSS s/p PPM - stable Hyperlipidemia - cont statin therapy Chronic stable angina Akinetic distal anterior wall and the entire apical wall with ejection fraction estimated at 40%.per cath 05/12 Morbid obesity Diabetes type 2 - Sliding scale insulin GERD - cont PPI CAD WITH HX STENTS - recent cardiac catheterization 04/2018 showed patent GARCIA to LAD and patent SVG to OM. No further cardiac workup is indicated Chronic hypoxia - likely cor pulmonale Excoriations on back - will apply mupirocin to skin FEN - cardiac diet PPX - lovenox FULL CODE Dispo - inpatient History of Present Illness History of Present Illness Ms Laguna is a 64yo F w/ PMHx HTN, SSS, HLD, obesity, chronic pain syndrome, chronic systolic CHF, cor pulmonale with hypoxia on 3L NCO2 who presented with trouble breathing that is getting worse for last 3 days. Her symptom is worse with exertion. Denies nausea, diarrhea, abdominal pain, diarrhea, dysuria, fever. She also endorses chest tightness that is baseline, worse with deep breath. Patient is on diuretics at home of Bumex 2 mg twice daily. She has multiple admissions in the past. Notes she feels she is retaining fluid. Was admitted for further care. 2/3: Asking for pain medications for chronic back pain. Still short of breath, swollen. Drowsy. 2/4: Labs and breathing slightly improved. Working with PT and desaturated with ambulation to < 89% on 3L No overnight events. On 2L NCO2 currently. After additional day of IV bumex, feeling a bit less short of breath. has not been out of bed yet. Long discussion of decreasing pain medications, she is frustrated with frequent hospital stays, notes her grand-daughter lives with her but can't be there all the time. Vitals/I&O Vitals/I&O: Vital Signs Date Time Temp Pulse Resp B/P (MAP) Pulse Ox O2 Delivery O2 Flow Rate FiO2 04/28/20 02:53 98.1 60 16 112/40 (64) 97 Nasal Cannula 2.0 98.1 I & O 04/27/20 04/27/20 04/28/20 15:00 23:00 07:00 Intake Total 300 ml 540 ml Output Total 900 ml 500 ml 150 ml Balance -600 ml -500 ml 390 ml Physical Exam General: Alert, Oriented X3, Cooperative Heart: Regular rate, Normal S1, Normal S2 Lungs: Clear Abdomen: Normal bowel sounds, Soft Extremities: Other (1+ edema) Labs Labs: Laboratory Tests Test 04/27/20 07:35 04/27/20 12:18 04/27/20 13:10 04/27/20 17:06 Glucose (Fingerstick) 86 mg/dL (70-99) 116 mg/dL (70-99) 169 mg/dL (70-99) Sodium Level 140 mmol/L (136-145) Potassium Level 4.9 mmol/L (3.5-5.1) Chloride Level 99 mmol/L (98-107) Carbon Dioxide Level 39 mmol/L (21-32) Anion Gap 2 (6-14) Blood Urea Nitrogen 23 mg/dL (7-20) Creatinine 1.2 mg/dL (0.6-1.0) Estimated GFR (Cockcroft-Gault) 54.4 Glucose Level 153 mg/dL (70-99) Calcium Level 9.7 mg/dL (8.5-10.1) Magnesium Level 2.2 mg/dL (1.8-2.4) Test 04/27/20 21:01 Glucose (Fingerstick) 148 mg/dL (70-99) Assessment and Plan Assessmemt and Plan Problems Medical Problems: (1) Acute exacerbation of CHF (congestive heart failure) Status: Acute (2) Hypertensive urgency Status: Acute Comment Review of Relevant I have reviewed the following items nolan (where applicable) has been applied. Medications: Current Medications Medications (Trade) Dose Ordered Sig/Susan Route PRN Reason Start Time Stop Time Status Last Admin Dose Admin Oxycodone/ Acetaminophen (Percocet 10/325) 1 tab PRN Q4HRS PRN PO PAIN 04/27/20 12:00 04/28/20 06:37 Mupirocin (Bactroban) 1 tre TID TP 04/27/20 14:00 04/27/20 20:45 Justifications for Admission Other Justification VENKAT ALEJANDRO MD Apr 28, 2020 07:35
[2020-04-28] MEDS: INSULIN LISPRO 300 UNITS/3 ML VIAL. SQ SCH ×3 (07:57→16:49)
[2020-04-28] MEDS: LIDOCAINE (700MG/PATCH) PATCH. TD SCH (08:04)
[2020-04-28] MEDS: GLIMEPIRIDE 2 MG TABLET. PO SCH (08:05)
[2020-04-28] MEDS: LOSARTAN POTASSIUM 50 MG TABLET. PO SCH (08:05)
[2020-04-28] MEDS: BUMETANIDE 1 MG TABLET. PO SCH (08:05)
[2020-04-28] MEDS: CALCIUM CARB/VIT D3 500/200 TABLET. PO SCH (08:05)
[2020-04-28] MEDS: BENZONATATE 100 MG CAPSULE. PO SCH ×3 (08:07→20:47)
[2020-04-28] MEDS: FLUoxetine HCL 20 MG CAPSULE PO SCH (08:07)
[2020-04-28] MEDS: ASPIRIN ENTERIC COATED 81 MG TABLET.DR. PO SCH (08:07)
[2020-04-28] MEDS: ISOSORBIDE MONONITRATE ER 30 MG TAB.ER.24H PO SCH (08:07)
[2020-04-28] MEDS: CARVEDILOL 12.5 MG TABLET. PO SCH ×2 (08:07→16:46)
[2020-04-28] MEDS: CLOPIDOGREL BISULFATE 75 MG TABLET PO SCH (08:08)
[2020-04-28] MEDS: POTASSIUM CHLORIDE 20 MEQ TABLET.ER. PO SCH ×2 (08:08→16:46)
[2020-04-28] MEDS: MUPIROCIN 2 % TOPICAL CREAM 30GM TUBE. TP SCH ×3 (08:08→21:27)
[2020-04-28] MEDS: PANTOPRAZOLE 40 MG TABLET.DR. PO SCH (08:08)
[2020-04-28] MEDS: CAPSAICIN 0.025% TOPICAL CREAM 60GM TUBE. TP SCH ×3 (08:09→20:51)
[2020-04-28 11:00] VITALS: BP 126/55
--- NOTE | 2020-04-28 11:04 | NUR ---
SW following. Discussed with RN, pt from home with granddaughter, 2L (has home oxygen). PT/OT recommending home. RN advised no SW needs at this time and anticipates discharge home today with self care. SW will continue to follow.
[2020-04-28 15:00] VITALS: BP 133/64
[2020-04-28 19:00] VITALS: BP 107/32
--- NOTE | 2020-04-28 19:05 | NUR ---
Pt in bed assessment completed vss poc explained pt with pain will medicate pt and resume care. Call light in reach.
[2020-04-28] MEDS: ATORVASTATIN CALCIUM 20 MG TABLET PO SCH (20:48)
[2020-04-28] MEDS: SPIRONOLACTONE 25 MG TABLET PO SCH (20:48)
[2020-04-28] MEDS: traZODone 50 MG TABLET. PO SCH (20:48)
[2020-04-28] MEDS: INSULIN GLARGINE SYRINGE. SQ SCH (20:49)
[2020-04-28] MEDS: ENOXAPARIN 40 MG/0.4 ML SYRINGE. SQ SCH (20:49)
[2020-04-28 22:32] VITALS: BP 100/27
[2020-04-29 03:05] VITALS: BP 114/48
[2020-04-29] MEDS: oxyCODONE/APAP 10/325 1 TAB TABLET PO PRN ×5 (03:08→21:16)
[2020-04-29] MEDS: PANTOPRAZOLE 40 MG TABLET.DR. PO SCH (05:58)
[2020-04-29 07:17] VITALS: BP 140/51
[2020-04-29] MEDS: ALBUTEROL SULFATE 2.5 MG/3 ML NEBU. NEB SCH ×4 (07:43→20:07)
[2020-04-29] MEDS: INSULIN LISPRO 300 UNITS/3 ML VIAL. SQ SCH ×3 (08:00→16:56)
[2020-04-29] MEDS: BUMETANIDE 1 MG TABLET. PO SCH (08:11)
[2020-04-29] MEDS: LIDOCAINE (700MG/PATCH) PATCH. TD SCH (08:11)
[2020-04-29] MEDS: CLOPIDOGREL BISULFATE 75 MG TABLET PO SCH (08:11)
[2020-04-29] MEDS: FLUoxetine HCL 20 MG CAPSULE PO SCH (08:12)
[2020-04-29] MEDS: LOSARTAN POTASSIUM 50 MG TABLET. PO SCH (08:12)
[2020-04-29] MEDS: CALCIUM CARB/VIT D3 500/200 TABLET. PO SCH (08:12)
[2020-04-29] MEDS: GLIMEPIRIDE 2 MG TABLET. PO SCH (08:12)
[2020-04-29] MEDS: ASPIRIN ENTERIC COATED 81 MG TABLET.DR. PO SCH (08:13)
[2020-04-29] MEDS: BENZONATATE 100 MG CAPSULE. PO SCH ×3 (08:13→21:16)
[2020-04-29] MEDS: POTASSIUM CHLORIDE 20 MEQ TABLET.ER. PO SCH ×2 (08:13→16:51)
[2020-04-29] MEDS: ISOSORBIDE MONONITRATE ER 30 MG TAB.ER.24H PO SCH (08:13)
[2020-04-29] MEDS: CARVEDILOL 12.5 MG TABLET. PO SCH ×2 (08:13→16:52)
[2020-04-29] MEDS: MUPIROCIN 2 % TOPICAL CREAM 30GM TUBE. TP SCH ×3 (08:14→21:17)
[2020-04-29] MEDS: CAPSAICIN 0.025% TOPICAL CREAM 60GM TUBE. TP SCH ×3 (08:14→21:17)
[2020-04-29 09:20] LABS: CALCIUM 9.3 mg/dL (8.5-10.1); GFR 67.1
[2020-04-29 10:29] VITALS: BP 121/48
--- NOTE | 2020-04-29 14:18 | PDOC ---
[facility] PROGRESS NOTE Date of Service DOS: DATE: 04/29/20 TIME: 14:17 Chief Complaint Chief Complaint A/P: Acute on chronic chronic combined systolic and diastolic heart failure - IV bumex improved her Shortness of breath - likely CHF exacerbation Accelerated Hypertension - will get back on home medication. Chronic abdominal pain - Possibly marijuana hyperemesis syndrome. Chest pain - likely demand from opioid hyperalgesia vs referred right shoulder or GI pain. Will maintain telemetry and trend troponins given her high risk and frequent hospitalizations SSS s/p PPM - stable Hyperlipidemia - cont statin therapy Chronic stable angina Akinetic distal anterior wall and the entire apical wall with ejection fraction estimated at 40%.per cath 05/12 Morbid obesity Diabetes type 2 - Sliding scale insulin GERD - cont PPI CAD WITH HX STENTS - recent cardiac catheterization 04/2018 showed patent GARCIA to LAD and patent SVG to OM. No further cardiac workup is indicated Chronic hypoxia - likely cor pulmonale Excoriations on back - will apply mupirocin to skin FEN - cardiac diet PPX - lovenox FULL CODE Dispo - inpatient History of Present Illness History of Present Illness Ms Laguna is a 64yo F w/ PMHx HTN, SSS, HLD, obesity, chronic pain syndrome, chronic systolic CHF, cor pulmonale with hypoxia on 3L NCO2 who presented with trouble breathing that is getting worse for last 3 days. Her symptom is worse with exertion. Denies nausea, diarrhea, abdominal pain, diarrhea, dysuria, fever. She also endorses chest tightness that is baseline, worse with deep breath. Patient is on diuretics at home of Bumex 2 mg twice daily. She has multiple admissions in the past. Notes she feels she is retaining fluid. Was admitted for further care. 2/3: Asking for pain medications for chronic back pain. Still short of breath, swollen. Drowsy. 24: Labs and breathing slightly improved. Working with PT and desaturated with ambulation to < 89% on 3L 25: No overnight events. On 2L NCO2 currently. After additional day of IV bumex, feeling a bit less short of breath. has not been out of bed yet. Long discussion of decreasing pain medications, she is frustrated with frequent hospital stays, notes her grand-daughter lives with her but can't be there all the time. Still some dyspnea on exertion did a 6-minute walk and did not have to turn her 2 L/min oxygen up though she did desaturate at 4 minutes to 89%, did not return to 3 L. Some chest pain today. Feeling very fatigued. Plan: D/c home with home health in next 24 hours. Vitals/I&O Vitals/I&O: Vital Signs Date Time Temp Pulse Resp B/P (MAP) Pulse Ox O2 Delivery O2 Flow Rate FiO2 04/29/20 12:51 97 Nasal Cannula 2.0 04/29/20 10:29 98.4 60 16 121/48 (72) 98.4 I & O 04/28/20 04/28/20 04/29/20 15:00 23:00 07:00 Intake Total 240 ml 400 ml 320 ml Output Total 900 ml Balance 240 ml -500 ml 320 ml Physical Exam General: Alert, Oriented X3, Cooperative Heart: Regular rate, Normal S1, Normal S2 Lungs: Clear Abdomen: Normal bowel sounds, Soft Extremities: Other (1+ edema) Labs Labs: Laboratory Tests Test 04/28/20 16:48 04/28/20 20:47 04/29/20 07:03 04/29/20 08:15 Glucose (Fingerstick) 118 mg/dL (70-99) 203 mg/dL (70-99) 89 mg/dL (70-99) Sodium Level 139 mmol/L (136-145) Potassium Level 5.0 mmol/L (3.5-5.1) Chloride Level 98 mmol/L (98-107) Carbon Dioxide Level 40 mmol/L (21-32) Anion Gap 1 (6-14) Blood Urea Nitrogen 27 mg/dL (7-20) Creatinine 1.0 mg/dL (0.6-1.0) Estimated GFR (Cockcroft-Gault) 67.1 Glucose Level 108 mg/dL (70-99) Calcium Level 9.3 mg/dL (8.5-10.1) Test 04/29/20 11:11 Glucose (Fingerstick) 152 mg/dL (70-99) Assessment and Plan Assessmemt and Plan Problems Medical Problems: (1) Acute exacerbation of CHF (congestive heart failure) Status: Acute (2) Hypertensive urgency Status: Acute Comment Review of Relevant I have reviewed the following items nolan (where applicable) has been applied. Justifications for Admission Other Justification VENKAT ALEJANDRO MD Apr 29, 2020 14:18
[2020-04-29 14:28] VITALS: BP 115/33
[2020-04-29 19:26] VITALS: BP 127/39
[2020-04-29] MEDS: SPIRONOLACTONE 25 MG TABLET PO SCH (21:15)
[2020-04-29] MEDS: clonazePAM 0.5 MG TABLET PO PRN (21:15)
[2020-04-29] MEDS: traZODone 50 MG TABLET. PO SCH (21:15)
[2020-04-29] MEDS: ATORVASTATIN CALCIUM 20 MG TABLET PO SCH (21:16)
[2020-04-29] MEDS: ENOXAPARIN 40 MG/0.4 ML SYRINGE. SQ SCH (21:16)
[2020-04-29] MEDS: INSULIN GLARGINE SYRINGE. SQ SCH (21:23)
[2020-04-29 22:59] VITALS: BP 113/38
[2020-04-30] MEDS: oxyCODONE/APAP 10/325 1 TAB TABLET PO PRN ×4 (02:14→20:08)
[2020-04-30 02:58] VITALS: BP 151/52
[2020-04-30 07:08] VITALS: BP 123/63
[2020-04-30] MEDS: ALBUTEROL SULFATE 2.5 MG/3 ML NEBU. NEB SCH ×4 (07:19→19:33)
[2020-04-30] MEDS: INSULIN LISPRO 300 UNITS/3 ML VIAL. SQ SCH ×3 (08:00→17:00)
--- NOTE | 2020-04-30 08:18 | PDOC ---
[facility] PROGRESS NOTE Date of Service DOS: DATE: 04/30/20 TIME: 08:17 Chief Complaint Chief Complaint A/P: Acute on chronic chronic combined systolic and diastolic heart failure - IV bumex improved her Shortness of breath - likely CHF exacerbation Accelerated Hypertension - will get back on home medication. Chronic abdominal pain - Possibly marijuana hyperemesis syndrome. Chest pain - likely demand from opioid hyperalgesia vs referred right shoulder or GI pain. Will maintain telemetry and trend troponins given her high risk and frequent hospitalizations SSS s/p PPM - stable Hyperlipidemia - cont statin therapy Chronic stable angina Akinetic distal anterior wall and the entire apical wall with ejection fraction estimated at 40%.per cath 05/12 Morbid obesity Diabetes type 2 - Sliding scale insulin GERD - cont PPI CAD WITH HX STENTS - recent cardiac catheterization 04/2018 showed patent GARCIA to LAD and patent SVG to OM. No further cardiac workup is indicated Chronic hypoxia - likely cor pulmonale Excoriations on back - will apply mupirocin to skin FEN - cardiac diet PPX - lovenox FULL CODE Dispo - inpatient History of Present Illness History of Present Illness Ms Laguna is a 64yo F w/ PMHx HTN, SSS, HLD, obesity, chronic pain syndrome, chronic systolic CHF, cor pulmonale with hypoxia on 3L NCO2 who presented with trouble breathing that is getting worse for last 3 days. Her symptom is worse with exertion. Denies nausea, diarrhea, abdominal pain, diarrhea, dysuria, fever. She also endorses chest tightness that is baseline, worse with deep breath. Patient is on diuretics at home of Bumex 2 mg twice daily. She has multiple admissions in the past. Notes she feels she is retaining fluid. Was admitted for further care. 23: Asking for pain medications for chronic back pain. Still short of breath, swollen. Drowsy. 04/27: Labs and breathing slightly improved. Working with PT and desaturated with ambulation to < 89% on 3L 2: No overnight events. On 2L NCO2 currently. After additional day of IV bumex, feeling a bit less short of breath. has not been out of bed yet. Long discussion of decreasing pain medications, she is frustrated with frequent hospital stays, notes her grand-daughter lives with her but can't be there all the time. 04/29: MCCLOUD and CP today. 6-min walk she did desaturate at 4 minutes to 89%, did not require >2 L. Feeling very fatigued. No overnight events. Stable on 2L NCO2, ambulating better. Less fatigued. Chest pain improved. Vitals/I&O Vitals/I&O: Vital Signs Date Time Temp Pulse Resp B/P (MAP) Pulse Ox O2 Delivery O2 Flow Rate FiO2 04/30/20 07:21 Nasal Cannula 2.0 04/30/20 07:08 98.3 60 18 123/63 (83) 98 98.3 I & O 04/29/20 04/29/20 04/30/20 15:00 23:00 07:00 Intake Total 120 ml 500 ml 152 ml Output Total 2025 ml 1000 ml Balance -1905 ml 500 ml -848 ml Physical Exam General: Alert, Oriented X3, Cooperative Heart: Regular rate, Normal S1, Normal S2 Lungs: Clear Abdomen: Normal bowel sounds, Soft Extremities: Other (1+ edema) Labs Labs: Laboratory Tests Test 04/29/20 11:11 04/29/20 16:07 04/29/20 20:14 04/30/20 07:05 Glucose (Fingerstick) 152 mg/dL (70-99) 162 mg/dL (70-99) 145 mg/dL (70-99) 117 mg/dL (70-99) Assessment and Plan Assessmemt and Plan Problems Medical Problems: (1) Acute exacerbation of CHF (congestive heart failure) Status: Acute (2) Hypertensive urgency Status: Acute Comment Review of Relevant I have reviewed the following items nolan (where applicable) has been applied. Justifications for Admission Other Justification VENKAT ALEJANDRO MD Apr 30, 2020 08:18
[2020-04-30] MEDS: CARVEDILOL 12.5 MG TABLET. PO SCH ×2 (08:37→17:27)
[2020-04-30] MEDS: LIDOCAINE (700MG/PATCH) PATCH. TD SCH (08:37)
[2020-04-30] MEDS: ASPIRIN ENTERIC COATED 81 MG TABLET.DR. PO SCH (08:37)
[2020-04-30] MEDS: BUMETANIDE 1 MG TABLET. PO SCH (08:37)
[2020-04-30] MEDS: CALCIUM CARB/VIT D3 500/200 TABLET. PO SCH (08:37)
[2020-04-30] MEDS: FLUoxetine HCL 20 MG CAPSULE PO SCH (08:38)
[2020-04-30] MEDS: BENZONATATE 100 MG CAPSULE. PO SCH ×3 (08:38→20:06)
[2020-04-30] MEDS: GLIMEPIRIDE 2 MG TABLET. PO SCH (08:38)
[2020-04-30] MEDS: PANTOPRAZOLE 40 MG TABLET.DR. PO SCH (08:38)
[2020-04-30] MEDS: ISOSORBIDE MONONITRATE ER 30 MG TAB.ER.24H PO SCH (08:38)
[2020-04-30] MEDS: LOSARTAN POTASSIUM 50 MG TABLET. PO SCH (08:38)
[2020-04-30] MEDS: MUPIROCIN 2 % TOPICAL CREAM 30GM TUBE. TP SCH ×3 (08:39→20:08)
[2020-04-30] MEDS: CAPSAICIN 0.025% TOPICAL CREAM 60GM TUBE. TP SCH ×3 (08:39→20:08)
[2020-04-30] MEDS: CLOPIDOGREL BISULFATE 75 MG TABLET PO SCH (08:39)
[2020-04-30] MEDS: POTASSIUM CHLORIDE 20 MEQ TABLET.ER. PO SCH ×2 (08:39→17:27)
[2020-04-30 10:41] VITALS: BP 131/39
--- NOTE | 2020-04-30 12:50 | SNU/HH DC ---
DISCHARGE WITH HOME HEALTH DISCHARGE INFORMATION: Discharge Date: Apr 30, 2020 Final Diagnosis: Problems Medical Problems: (1) Acute exacerbation of CHF (congestive heart failure) Status: Acute (2) Hypertensive urgency Status: Acute Condition on Discharge: Stable CODE STATUS: Code Status: Full HOME HEALTH: Face to Face: I certify this patient is under my care and that I, or a nurse practitioner or physician's pharmacy innovation assistant working with me, had a face to face encounter that meets the physician face to face encounter requirements with this patient on 04/30/2020. Fpc For: Admin/Educate Injections, Assess & Educate Safety, Assess/Skilled Observatio, Diabetic Care, Pain Management RN For Eval/Treatment: Yes Physical Therapy For: Evalulation/Treatment Occupational Therapy For: Evaluation/Treatment Pt Meets Homebound Status: Extreme weakness w/ amb., Fatigue w/ amb., Limited distance walking POST DISCHARGE ORDERS: Activity Instructions for Disc: Activity as tolerated Weight Bearing Status after Di: Full weight bearing DIET AFTER DISCHARGE: Cardiac Wound/Incision Care: No wound care needed CHECKS AFTER DISCHARGE: Checks after discharge: Check blood sugar, ac/hs TREATMENT/EQUIPMENT ORDERS: Adaptive Equipment Issued: None Discharge Respiratory Equipmen: Oxygen, Nebulizer CERTIFICATION STATEMENT: Certification Statement: Certification Statement: Based on the above finding, I certify that this patient is confined to the home and needs intermittent long-term care, physical therapy and/or speech therapy, or continues to need occupational therapy.~ This patient is under my care, and I have initiated the establishment of the plan of care.~ This patient will be followed by myself or a community physician who will periodically review the plan of care. Home Meds Active Scripts Albuterol Sulfate (VENTOLIN HFA INHALER) 18 Gm Hfa.aer.ad, 2 PUFF INH QID for FOR ASTHMA, #1 INHALER 0 Refills Prov:MARCIO ALANIZ DO 04/13/20 Lidocaine (Lidocaine PATCH ) 1 Each Adh..patch, 1 PATCH TD DAILY for BACK PAIN for 30 Days, #30 PATCH Prov:JHON ZAPIEN MD 03/07/20 Insulin Lispro (Admelog) 100 Unit/1 Ml Vial, 0 UNITS SQ TIDWMEALS for DIABETES for 30 Days, #2 EACH Prov:JHON ZAPIEN MD 03/07/20 Guaifenesin/Dextromethorphan (GUAIFENESIN DM SYRUP) 5 Ml Syrup, 10 ML PO PRN Q6HRS PRN for COUGH for 14 Days, #240 MISC Prov:JHON ZAPIEN MD 03/07/20 Benzonatate (BENZONATATE) 100 Mg Capsule, 100 MG PO [id number] for COUGH for 14 Days, #60 CAP Prov:JHON ZAPIEN MD 03/07/20 Amlodipine Besylate (AMLODIPINE BESYLATE) 10 Mg Tablet, 5 MG PO DAILY for BLOOD PRESSURE for 30 Days, #15 TAB Prov:JHON ZAPIEN MD 03/07/20 Pantoprazole Sodium (PROTONIX ) 40 Mg Tablet.dr, 40 MG PO DAILYAC for GERD for 60 Days, #60 TAB Prov:CATHIE KNIGHT MD 01/29/19 Glimepiride (AMARYL) 2 Mg Tablet, 2 MG PO DAILY for 30 Days, #30 TAB Prov:RADHA PIERRE MD 07/04/17 Reported Medications Albuterol Sulfate (VENTOLIN HFA INHALER) 18 Gm Hfa.aer.ad, 2 PUFF INH [id number] for FOR ASTHMA, INHALER 0 Refills 01/08/20 Clonazepam (CLONAZEPAM) 1 Mg Tablet, 0.5 MG PO TID for FOR ANXIETY, TAB 01/08/20 Bumetanide (BUMETANIDE) 2 Mg Tablet, 2 MG PO BID for DIURETIC, TAB 01/08/20 Trazodone Hcl (TRAZODONE HCL) 50 Mg Tablet, 50 MG PO HS for DEPRESSION, SLEEP, TAB 01/08/20 Spironolactone (SPIRONOLACTONE) 50 Mg Tablet, 50 MG PO HS for HEART, TAB 01/08/20 Potassium Chloride (POTASSIUM CHLORIDE ) 20 Meq Tablet.er, 20 MEQ PO BIDWMEALS for SUPPLEMENT, TAB.SR 01/08/20 Oxycodone/Apap 10-325 (PERCOCET 10-325 MG TABLET ) 1 Each Tablet, 1 TAB PO PRN Q6HRS PRN for PAIN, TAB 0 Refills 01/08/20 Carvedilol (CARVEDILOL) 25 Mg Tablet, 12.5 MG PO BIDWMEALS for CARDIAC, TAB 01/08/20 Insulin Glargine,Hum.rec.anlog (LANTUS SOLOSTAR) 100 Unit/1 Ml Insuln.pen, 8 UNIT SQ QHS for diabetes, #15 ML 3 Refills 01/08/20 Isosorbide Mononitrate (ISOSORBIDE MONONITRATE ER) 30 Mg Tab.er.24h, 30 MG PO DAILY for hypertension, TAB.SR 01/08/20 Clopidogrel Bisulfate (CLOPIDOGREL) 75 Mg Tablet, 75 MG PO DAILY for TO PREVENT BLOOD CLOTS, #30 TAB 0 Refills 10/10/19 Losartan Potassium (LOSARTAN POTASSIUM) 100 Mg Tablet, 100 MG PO DAILY for HYPERTENSION, TAB 10/10/19 Capsaicin (CAPSAICIN) 60 Gm Cream..g., 60 GM TP TID for , EACH apply to morgan feet 07/14/18 Calcium Carbonate/Vitamin D3 (CALCIUM 500 + VIT D 200 CAPLET) 1 Each Tablet, 1 EACH PO DAILY for supplement, TAB 05/16/18 Fluoxetine Hcl (FLUOXETINE HCL) 20 Mg Capsule, 1 CAP PO DAILY for anti- depressent, #90 CAP 1 Refill 05/16/18 Nitroglycerin (NITROGLYCERIN SubLingual) 0.4 Mg Tab.subl, 0.4 MG SL PRN Q5MIN PRN for CHEST PAIN, BOTTLE 11/01/16 Atorvastatin Calcium (ATORVASTATIN CALCIUM) 20 Mg Tablet, 20 MG PO HS for FOR CHOLESTEROL, #30 TAB 0 Refills 10/28/16 Aspirin (ASPIR 81) 81 Mg Tablet.dr, 1 TAB PO DAILY, #30 TAB 5 Refills 10/28/16 Discontinued Scripts Prednisone (PREDNISONE) 20 Mg Tablet, 2 TAB PO DAILY for 4 Days, #8 TAB Prov:MARCIO ALANIZ DO 04/13/20 Prednisone (PREDNISONE ) 10 Mg Tablet, 40 MG PO DAILY for COPD for 4 Days, #16 TAB Prov:JHON ZAPIEN MD 03/07/20 Prednisone (PREDNISONE ) 10 Mg Tablet, 30 MG PO DAILY for COPD for 4 Days, #12 TAB Prov:JHON ZAPIEN MD 03/07/20 Prednisone (PREDNISONE) 20 Mg Tablet, 20 MG PO DAILY for COPD for 4 Days, #4 TAB Prov:JHON ZAPIEN MD 03/07/20 Prednisone (PREDNISONE ) 10 Mg Tablet, 10 MG PO DAILY for COPD for 4 Days, #4 TAB Prov:JHON ZAPIEN MD 03/07/20 VENKAT ALEJANDRO MD Apr 30, 2020 12:50
--- NOTE | 2020-04-30 12:53 | PDOC3 ---
Discharge Summary Visit Information Date of Admission: Apr 25, 2020 Date of Discharge: Apr 30, 2020 Admitting Diagnosis: Acute exacerbation of CHF Final Diagnosis Problems Medical Problems: (1) Acute exacerbation of CHF (congestive heart failure) Status: Acute (2) Hypertensive urgency Status: Acute Brief Hospital Course Allergies Allergies Coded Allergies Type Severity Reaction Last Updated Verified No Known Drug Allergies 03/13/19 No Vital Signs Vital Signs Date Time Temp Pulse Resp B/P (MAP) Pulse Ox O2 Delivery O2 Flow Rate FiO2 04/30/20 11:21 95 Nasal Cannula 2.0 04/30/20 10:41 97.9 60 18 131/39 (69) 97.9 Lab Results Laboratory Tests Test 04/28/20 16:48 04/28/20 20:47 04/29/20 07:03 04/29/20 08:15 Glucose (Fingerstick) 118 mg/dL (70-99) 203 mg/dL (70-99) 89 mg/dL (70-99) Sodium Level 139 mmol/L (136-145) Potassium Level 5.0 mmol/L (3.5-5.1) Chloride Level 98 mmol/L (98-107) Carbon Dioxide Level 40 mmol/L (21-32) Anion Gap 1 (6-14) Blood Urea Nitrogen 27 mg/dL (7-20) Creatinine 1.0 mg/dL (0.6-1.0) Estimated GFR (Cockcroft-Gault) 67.1 Glucose Level 108 mg/dL (70-99) Calcium Level 9.3 mg/dL (8.5-10.1) Test 04/29/20 11:11 04/29/20 16:07 04/29/20 20:14 04/30/20 07:05 Glucose (Fingerstick) 152 mg/dL (70-99) 162 mg/dL (70-99) 145 mg/dL (70-99) 117 mg/dL (70-99) Laboratory Tests Test 04/29/20 16:07 04/29/20 20:14 04/30/20 07:05 Glucose (Fingerstick) 162 mg/dL (70-99) 145 mg/dL (70-99) 117 mg/dL (70-99) Brief Hospital Course Ms Laguna is a 64yo F w/ PMHx HTN, SSS, HLD, obesity, chronic pain syndrome, chronic systolic CHF, cor pulmonale with hypoxia on 3L NCO2 who presented with trouble breathing that is getting worse for last 3 days. Her symptom is worse with exertion. Denies nausea, diarrhea, abdominal pain, diarrhea, dysuria, fever. She also endorses chest tightness that is baseline, worse with deep breath. Patient is on diuretics at home of Bumex 2 mg twice daily. She has multiple admissions in the past. Notes she feels she is retaining fluid. Was admitted for further care. 2: Asking for pain medications for chronic back pain. Still short of breath, swollen. Drowsy. 04/27: Labs and breathing slightly improved. Working with PT and desaturated with ambulation to < 89% on 3L 04/28: No overnight events. On 2L NCO2 currently. After additional day of IV bumex, feeling a bit less short of breath. has not been out of bed yet. Long discussion of decreasing pain medications, she is frustrated with frequent hospital stays, notes her grand-daughter lives with her but can't be there all the time. 04/29: MCCLOUD and CP today. 6-min walk she did desaturate at 4 minutes to 89%, did not require >2 L. Feeling very fatigued. No overnight events. Stable on 2L NCO2, ambulating better. Less fatigued. Chest pain improved. Problem list: Acute on chronic chronic combined systolic and diastolic heart failure - IV bumex improved her Shortness of breath - likely CHF exacerbation Accelerated Hypertension - will get back on home medication. Chronic abdominal pain - Possibly marijuana hyperemesis syndrome. Chest pain - likely demand from opioid hyperalgesia vs referred right shoulder or GI pain. Will maintain telemetry and trend troponins given her high risk and frequent hospitalizations SSS s/p PPM - stable Hyperlipidemia - cont statin therapy Chronic stable angina Akinetic distal anterior wall and the entire apical wall with ejection fraction estimated at 40%.per cath 05/12 Morbid obesity Diabetes type 2 - Sliding scale insulin GERD - cont PPI CAD WITH HX STENTS - recent cardiac catheterization 04/2018 showed patent GARCIA to LAD and patent SVG to OM. No further cardiac workup is indicated Chronic hypoxia - likely cor pulmonale Excoriations on back - will apply mupirocin to skin Greater than 30 minutes spent on d/c home with home health Discharge Information Condition at Discharge: Improved Follow Up: Weeks (2) Disposition/Orders: D/C to Home w/ HH Scheduled Albuterol Sulfate (Ventolin Hfa Inhaler) 18 Gm Hfa.aer.ad, 2 PUFF INH [id number] for FOR ASTHMA, Ref 0 (Reported) Entered as Reported by: JOVANNY MORALES on 01/08/202203 Last Action: Converted on 04/25/201720 by LIZBET MAC MD Albuterol Sulfate (Ventolin Hfa Inhaler) 18 Gm Hfa.aer.ad, 2 PUFF INH QID for FOR ASTHMA, #1 Ref 0 Prescribed by: MARCIO ALANIZ DO on 04/13/202358 Last Action: Converted on 04/25/201720 by LIZBET MAC MD Amlodipine Besylate (Amlodipine Besylate) 10 Mg Tablet, 5 MG PO DAILY for BLOOD PRESSURE for 30 Days, #15 Prescribed by: JHON ZAPIEN MD on 03/07/201715 Last Action: Continued on 04/25/201719 by LIZBET MAC MD Aspirin (Aspir 81) 81 Mg Tablet.dr, 1 TAB PO DAILY, #30 Ref 5 (Reported) Entered as Reported by: FIFI WALSH on 10/28/16 1058 Last Action: Continued on 04/25/201719 by LIZBET MAC MD Atorvastatin Calcium (Atorvastatin Calcium) 20 Mg Tablet, 20 MG PO HS for FOR CHOLESTEROL, #30 Ref 0 (Reported) Entered as Reported by: FIFI WALSH on 10/28/16 1108 Last Action: Continued on 04/25/201719 by LIZBET MAC MD Benzonatate (Benzonatate) 100 Mg Capsule, 100 MG PO [id number] for COUGH for 14 Days, #60 Prescribed by: JHON ZAPIEN MD on 03/07/201715 Last Action: Continued on 04/25/201719 by LIZBET MAC MD Bumetanide (Bumetanide) 2 Mg Tablet, 2 MG PO BID for DIURETIC, (Reported) Entered as Reported by: JOVANNY MORALES on 01/08/202203 Last Action: Converted on 04/25/201720 by LIZBET MAC MD Calcium Carbonate/Vitamin D3 (Calcium 500 + Vit D 200 Caplet) 1 Each Tablet, 1 EACH PO DAILY for supplement, (Reported) Entered as Reported by: KENNEY YANG on 05/16/182321 Last Action: Continued on 04/25/201719 by LIZBET MAC MD Capsaicin (Capsaicin) 60 Gm Cream..g., 60 GM TP TID for , (Reported) apply to morgan feet Entered as Reported by: Tiffany Dodson on 07/14/182110 Last Action: Continued on 04/25/201719 by LIZBET MAC MD Carvedilol (Carvedilol) 25 Mg Tablet, 12.5 MG PO BIDWMEALS for CARDIAC, (Reported) Entered as Reported by: JOVANNY MORALES on 01/08/202203 Last Action: Converted on 04/25/201720 by LIZBET MAC MD Clonazepam (Clonazepam) 1 Mg Tablet, 0.5 MG PO TID for FOR ANXIETY, (Reported) Entered as Reported by: JOVANNY MORALES on 01/08/202203 Last Action: Converted on 04/25/201720 by LIZBET MAC MD Clopidogrel Bisulfate (Clopidogrel) 75 Mg Tablet, 75 MG PO DAILY for TO PREVENT BLOOD CLOTS, #30 Ref 0 (Reported) Entered as Reported by: Laureano Nazario RN on 10/10/19 0703 Last Action: Continued on 04/25/201719 by LIZBET MAC MD Fluoxetine Hcl (Fluoxetine Hcl) 20 Mg Capsule, 1 CAP PO DAILY for anti- depressent, #90 Ref 1 (Reported) Entered as Reported by: KENNEY YANG on 05/16/182321 Last Action: Continued on 04/25/201719 by LIZBET MAC MD Glimepiride (Amaryl) 2 Mg Tablet, 2 MG PO DAILY for 30 Days, #30 Prescribed by: RADHA PIERRE MD on 07/04/17 1010 Last Action: Continued on 04/25/201719 by LIZBET MAC MD Insulin Glargine,Hum.rec.anlog (Lantus Solostar) 100 Unit/1 Ml Insuln.pen, 8 UNIT SQ QHS for diabetes, #15 Ref 3 (Reported) Entered as Reported by: JOVANNY MORALES on 01/08/202203 Last Action: Converted on 04/25/201720 by LIZBET MAC MD Insulin Lispro (Admelog) 100 Unit/1 Ml Vial, 0 UNITS SQ TIDWMEALS for DIABETES for 30 Days, #2 Prescribed by: JHON ZAPIEN MD on 03/07/201715 Last Action: Continued on 04/25/201720 by LIZBET MAC MD Isosorbide Mononitrate (Isosorbide Mononitrate Er) 30 Mg Tab.er.24h, 30 MG PO DAILY for hypertension, (Reported) Entered as Reported by: JOVANNY MORALES on 01/08/202203 Last Action: Continued on 04/25/201720 by LIZBET MAC MD Lidocaine (Lidocaine PATCH ) 1 Each Adh..patch, 1 PATCH TD DAILY for BACK PAIN for 30 Days, #30 Prescribed by: JHON ZAPIEN MD on 03/07/201715 Last Action: Continued on 04/25/201720 by LIZBET MAC MD Losartan Potassium (Losartan Potassium) 100 Mg Tablet, 100 MG PO DAILY for H YPERTENSION, (Reported) Entered as Reported by: Laureano Nazario RN on 10/10/19 0703 Last Action: Converted on 04/25/201720 by LIZBET MAC MD Pantoprazole Sodium (Protonix ) 40 Mg Tablet.dr, 40 MG PO DAILYAC for GERD for 60 Days, #60 Prescribed by: CATHIE KNIGHT on 01/29/19 0857 Last Action: Continued on 04/25/201720 by LIZBET MAC MD Potassium Chloride (Potassium Chloride ) 20 Meq Tablet.er, 20 MEQ PO BIDWMEALS for SUPPLEMENT, (Reported) Entered as Reported by: JOVANNY MORALES on 01/08/202203 Last Action: Continued on 04/25/201720 by LIZBET MAC MD Spironolactone (Spironolactone) 50 Mg Tablet, 50 MG PO HS for HEART, (Reported) Entered as Reported by: JOVANNY MORALES on 01/08/202203 Last Action: Converted on 04/25/201720 by LIZBET MAC MD Trazodone Hcl (Trazodone Hcl) 50 Mg Tablet, 50 MG PO HS for DEPRESSION, SLEEP, (Reported) Entered as Reported by: JOVANNY MORALES on 01/08/202203 Last Action: Continued on 04/25/201720 by LIZBET MAC MD Scheduled PRN Guaifenesin/Dextromethorphan (Guaifenesin Dm Syrup) 5 Ml Syrup, 10 ML PO PRN Q6HRS PRN for COUGH for 14 Days, #240 Prescribed by: JHON ZAPIEN MD on 03/07/201715 Last Action: Continued on 04/25/201719 by LIZBET MAC MD Nitroglycerin (NITROGLYCERIN SubLingual) 0.4 Mg Tab.subl, 0.4 MG SL PRN Q5MIN PRN for CHEST PAIN, (Reported) Entered as Reported by: LOYDA CELAYA RN on 11/01/16 0013 Last Action: Continued on 04/25/201720 by LIZBET MAC MD Oxycodone/Apap 10-325 (Percocet 10-325 Mg Tablet ) 1 Each Tablet, 1 TAB PO PRN Q6HRS PRN for PAIN, Ref 0 (Reported) Entered as Reported by: JOVANNY MORALES on 01/08/202203 Last Action: Continued on 04/25/201720 by LIZBET MAC MD Discontinued Medications Prednisone (Prednisone ) 10 Mg Tablet, 10 MG PO DAILY for COPD for 4 Days, #4 Prescribed by: JHON ZAPIEN MD on 03/07/201715 Last Action: HELD on 04/25/201718 by LIZBET MAC MD Prednisone (Prednisone) 20 Mg Tablet, 20 MG PO DAILY for COPD for 4 Days, #4 Prescribed by: JHON ZAPIEN MD on 03/07/201715 Last Action: HELD on 04/25/201718 by LIZBET MAC MD Prednisone (Prednisone ) 10 Mg Tablet, 30 MG PO DAILY for COPD for 4 Days, #12 Prescribed by: JHON ZAPIEN MD on 03/07/201715 Last Action: HELD on 04/25/201718 by LIZBET MAC MD Prednisone (Prednisone ) 10 Mg Tablet, 40 MG PO DAILY for COPD for 4 Days, #16 Prescribed by: JHON ZAPIEN MD on 03/07/201715 Last Action: HELD on 04/25/201718 by LIZBET MAC MD Prednisone (Prednisone) 20 Mg Tablet, 2 TAB PO DAILY for 4 Days, #8 Prescribed by: MARCIO ALANIZ, on 04/13/20 4245 Last Action: HELD on 04/25/201718 by LIZBET MAC MD Justicifation of Admission Dx: Justifications for Admission: Justification of Admission Dx: N/A VENKAT ALEJANDRO MD Apr 30, 2020 12:53
[2020-04-30 14:40] VITALS: BP 103/38
[2020-04-30 19:50] VITALS: BP 159/48
[2020-04-30] MEDS: ATORVASTATIN CALCIUM 20 MG TABLET PO SCH (20:06)
[2020-04-30] MEDS: clonazePAM 0.5 MG TABLET PO PRN (20:07)
[2020-04-30] MEDS: SPIRONOLACTONE 25 MG TABLET PO SCH (20:07)
[2020-04-30] MEDS: traZODone 50 MG TABLET. PO SCH (20:07)
[2020-04-30] MEDS: ENOXAPARIN 40 MG/0.4 ML SYRINGE. SQ SCH (20:07)
[2020-04-30] MEDS: INSULIN GLARGINE SYRINGE. SQ SCH (20:12)
[2020-04-30 22:45] VITALS: BP 129/39
[2020-05-01] MEDS: oxyCODONE/APAP 10/325 1 TAB TABLET PO PRN ×3 (02:11→15:01)
[2020-05-01 03:00] VITALS: BP 116/44
[2020-05-01 07:00] VITALS: BP 128/53
[2020-05-01] MEDS: ALBUTEROL SULFATE 2.5 MG/3 ML NEBU. NEB SCH ×3 (07:58→15:15)
[2020-05-01] MEDS: ASPIRIN ENTERIC COATED 81 MG TABLET.DR. PO SCH (09:28)
[2020-05-01] MEDS: GLIMEPIRIDE 2 MG TABLET. PO SCH (09:28)
[2020-05-01] MEDS: CLOPIDOGREL BISULFATE 75 MG TABLET PO SCH (09:28)
[2020-05-01] MEDS: FLUoxetine HCL 20 MG CAPSULE PO SCH (09:28)
[2020-05-01] MEDS: PANTOPRAZOLE 40 MG TABLET.DR. PO SCH (09:28)
[2020-05-01] MEDS: CALCIUM CARB/VIT D3 500/200 TABLET. PO SCH (09:28)
[2020-05-01] MEDS: BENZONATATE 100 MG CAPSULE. PO SCH ×2 (09:29→13:11)
[2020-05-01] MEDS: BUMETANIDE 1 MG TABLET. PO SCH (09:29)
[2020-05-01] MEDS: CARVEDILOL 12.5 MG TABLET. PO SCH ×2 (09:29→17:00)
[2020-05-01] MEDS: LOSARTAN POTASSIUM 50 MG TABLET. PO SCH (09:30)
[2020-05-01] MEDS: ISOSORBIDE MONONITRATE ER 30 MG TAB.ER.24H PO SCH (09:31)
[2020-05-01] MEDS: MUPIROCIN 2 % TOPICAL CREAM 30GM TUBE. TP SCH ×2 (09:33→13:12)
[2020-05-01] MEDS: LIDOCAINE (700MG/PATCH) PATCH. TD SCH (09:33)
[2020-05-01] MEDS: CAPSAICIN 0.025% TOPICAL CREAM 60GM TUBE. TP SCH ×2 (09:40→13:12)
[2020-05-01 10:23] VITALS: BP 124/54
[2020-05-01] MEDS: INSULIN LISPRO 300 UNITS/3 ML VIAL. SQ SCH ×3 (12:00→17:00)
--- NOTE | 2020-05-01 12:08 | NUR ---
SS following up with discharge planning. SS reviewed pt chart and discussed with pt RN. Pt is currently requiring oxygen at two liters PRN. PT/OT recommended home independent. Home healthcare orders received over the weekend. SS met with pt to discuss discharge planning and home healthcare. Pt declined home healthcare and reported that it was not necessary. Pt reported that her granddaughter's boyfriend would be at her house at 1700 with a brumfield to let her in. Pt requested transportation be arranged to home. Pt will discharge today between 1700 and 1730 via [facility], . Pt's RN notified.
[2020-05-01] MEDS: POTASSIUM CHLORIDE 20 MEQ TABLET.ER. PO SCH ×2 (13:11→16:44)
[2020-05-01 14:15] VITALS: BP 126/49
[2020-05-01 17:00] VITALS: BP 126/49
--- NOTE | 2020-05-01 19:12 | NUR ---
Discharge Note: GRETCHEN BONILLA Discharge instructions and discharge home medications reviewed with Patient and a copy given. All questions have been answered and understanding verbalized.
--- NOTE | 2020-05-02 12:33 | DS ---
DATE OF DISCHARGE: 05/01/2020 ADMISSION DIAGNOSIS: Congestive heart failure. DISCHARGE DIAGNOSES: Resolving acute on chronic systolic congestive heart failure, history of coronary artery disease with bypass surgery, hypertension, hyperlipidemia, depression, anxiety, diabetes. HOSPITAL COURSE: The patient is a pleasant middle-aged female who has multiple comorbidities, presented with heart failure and some chest pain. She was admitted. We diuresed her. We did full cardiac workup, consulted Cardiology. Basically over the next few days, she returned to her baseline. We discharged her home. DISPOSITION: Home. ACTIVITY: As tolerated. DIET: Low sodium. MEDICATIONS: Please see the MRAD. TOTAL TIME: 32 minutes. PERICO BUCHANAN DO DR: AHMET/amrik JOB#: [id number] / [id number]
[2020-06-02] MEDS ORDERED: LACT1CAP19 PO (13:37)
[2020-06-02] MEDS ORDERED: DOCU-153 PO (13:37)
== END 2020-05-01 19:12 | disposition home or self-care (01) | DRG 291 ==
LOC: ER 13:12 → ED HOLD 16:00 → 2 NORTH 18:01
PROVIDERS: ADMIT Internal Medicine; ATTEND Internal Medicine
DX: I13.0 Hypertensive heart and chronic kidney disease with heart failure and stage 1 through stage 4 chronic kidney disease, or unspecified chronic kidney disease (principal); I50.43 Acute on chronic combined systolic (congestive) and diastolic (congestive) heart failure; Z68.41 Body mass index [BMI] 40.0-44.9, adult; D64.9 Anemia, unspecified; E11.22 Type 2 diabetes mellitus with diabetic chronic kidney disease; E66.01 Morbid (severe) obesity due to excess calories; E78.5 Hyperlipidemia, unspecified; G89.4 Chronic pain syndrome; I16.0 Hypertensive urgency; I27.81 Cor pulmonale (chronic); J44.9 Chronic obstructive pulmonary disease, unspecified; K21.9 Gastro-esophageal reflux disease without esophagitis; K43.9 Ventral hernia without obstruction or gangrene; Z96.659 Presence of unspecified artificial knee joint; F32.9 Major depressive disorder, single episode, unspecified; F41.9 Anxiety disorder, unspecified; E11.40 Type 2 diabetes mellitus with diabetic neuropathy, unspecified; R29.898 Other symptoms and signs involving the musculoskeletal system; I25.118 Atherosclerotic heart disease of native coronary artery with other forms of angina pectoris; R11.10 Vomiting, unspecified; N18.9 Chronic kidney disease, unspecified; Z79.4 Long term (current) use of insulin; Z79.899 Other long term (current) drug therapy; Z87.891 Personal history of nicotine dependence; Z90.710 Acquired absence of both cervix and uterus; Z95.0 Presence of cardiac pacemaker; Z95.1 Presence of aortocoronary bypass graft; I25.2 Old myocardial infarction
CPT/HCPCS: 36415; 71045; 80048; 80053; 81001; 82962; 83735; 83880; 84484; 85025; 93005; 94618; 94640; 94760; 96374; 96375; 99285; J0360; J1650; J1815; J1940; J2270; J2405; J3490; 97110-GO; 97110-GP; 97116-GP; 97530-GO; 97530-GP; 97535-GO; G0378; J7613

== ENCOUNTER 2020-09-29 16:37 | Inpatient (IN) | payer MEDICARE, MEDICAID ==
[~2020-09-29] VITALS: Ht 162.6 cm; Wt 102.0 kg
[~2020-09-29 16:37] MED LIST changes: +DICY20TA PO; -DICY20TA3 PO; +DOCU-148 PO; -EMPA10TA PO; +EMPA10TA3 PO; -FLUO20CA20 PO; +FLUO20CA22 PO; +LACT1CAP19 PO
[2020-09-29 17:07] LABS: BASO % 1 % (0-3); EOS % 0 % (0-3); HEMATOCRIT 33.6 % (36.0-47.0); HEMOGLOBIN 10.6 g/dL (12.0-15.5); LYMPH # 0.6 x10^3/uL (1.0-4.8); LYMPH % 11 % (24-48); MEAN CORPUSCULAR HEMOGLOBIN 28 pg (25-35); MEAN CORPUSCULAR HGB CONC 32 g/dL (31-37); MEAN CORPUSCULAR VOLUME 90 fL (79-100); MONO # 0.4 x10^3/uL (0.0-1.1); MONO % 7 % (0-9); NEUT # 4.6 x10^3/uL (1.8-7.7); NEUT % 82 % (31-73); PLATELET COUNT 184 x10^3/uL (140-400); RED BLOOD COUNT 3.74 x10^6/uL (3.50-5.40); RED CELL DISTRIBUTION WIDTH 15.6 % (11.5-14.5); WHITE BLOOD COUNT 5.6 x10^3/uL (4.0-11.0)
--- NOTE | 2020-09-29 17:13 | PHYS DOC ---
Past Medical History Past Medical History: CHF, COPD, Diabetes-Type II, High Cholesterol, Hypertension, SD, Other Additional Past Medical Histor: O2 @ 2-3 L , chronic pain, NEUROPATHY Past Surgical History: Appendectomy, Cholecystectomy, Coronary Bypass Surgery, Hysterectomy, Knee Replacement, Other Additional Past Surgical Histo: HERNIA REPAIR, CABG X 2 VESSELS 2015; breast reduction; L knee Smoking Status: Never Smoker Alcohol Use: None Drug Use: None General Adult EDM: Chief Complaint: CHEST PAIN HPI: HPI: Patient is a 65 year old female who present to ER for evaluation of substernal chest pain that radiated to her shoulder area that been going on for several days but become more intense today. The chest pain is worse with exertion, she also has trouble breathing with exertion. Patient denies any any cough or fever. Patient states she is fully vaccinated for Covid-19. Patient denies any abdominal pain, no nausea vomiting. Review of Systems: Review of Systems: Constitutional: Denies fever or chills. [] Eyes: Denies change in visual acuity. [] HENT: Denies nasal congestion or sore throat. [] Respiratory: Denies cough, positive for trouble breathing] Cardiovascular: Positive for chest pain and edema GI: Denies abdominal pain, nausea, vomiting, bloody stools or diarrhea. [] : Denies dysuria. [] Musculoskeletal: Denies back pain or joint pain. [] Integument: Denies rash. [] Neurologic: Denies headache, focal weakness or sensory changes. [] Endocrine: Denies polyuria or polydipsia. [] Lymphatic: Denies swollen glands. [] Psychiatric: Denies depression or anxiety. [] Heart Score: C/O Chest Pain: Yes HEART Score for Chest Pain: HEART Score for Chest Pain Response (Comments) Value History Moderately Suspicious 1 ECG Nonspecific Repolarizatio 1 Age > 65 2 Risk Factors >3 Risk Factors or Hx CAD 2 Troponin < Normal Limit 0 Total 6 Risk Factors: Risk Factors: DM, Current or recent (<one month) smoker, HTN, HLP, family history of CAD, obesity. Risk Scores: Score 0 - 3: 2.5% MACE over next 6 weeks - Discharge Home Score 4 - 6: 20.3% MACE over next 6 weeks - Admit for Clinical Observation Score 7 - 10: 72.7% MACE over next 6 weeks - Early Invasive Strategies Allergies: Allergies: Allergies Coded Allergies Type Severity Reaction Last Updated Verified No Known Drug Allergies 03/13/19 No Physical Exam: PE: Constitutional: Well developed, well nourished, no acute distress, non-toxic appearance. [] HENT: Normocephalic, atraumatic, bilateral external ears normal, oropharynx moist, no oral exudates, nose normal. [] Eyes: PERRLA, EOMI, conjunctiva normal, no discharge. [] Neck: Normal range of motion, no tenderness, supple, no stridor. [] Cardiovascular:Heart rate regular rhythm, systolic heart murmur Lungs & Thorax: Bilateral breath sounds with crackles at lung bases, Abdomen: Bowel sounds normal, soft, no tenderness, no masses, no pulsatile masses. [] Skin: Warm, dry, no erythema, no rash. [] Back: No tenderness, no CVA tenderness. [] Extremities: No tenderness, no cyanosis, no clubbing, ROM intact, 2+ pedal edema. Neurologic: Alert and oriented X 3, normal motor function, normal sensory function, no focal deficits noted. [] Psychologic: Affect normal, judgement normal, mood normal. [] Current Patient Data: Labs: Laboratory Tests Test 09/29/20 17:00 White Blood Count 5.6 x10^3/uL Red Blood Count 3.74 x10^6/uL Hemoglobin 10.6 g/dL Hematocrit 33.6 % Mean Corpuscular Volume 90 fL Mean Corpuscular Hemoglobin 28 pg Mean Corpuscular Hemoglobin Concent 32 g/dL Red Cell Distribution Width 15.6 % Platelet Count 184 x10^3/uL Neutrophils (%) (Auto) 82 % Lymphocytes (%) (Auto) 11 % Monocytes (%) (Auto) 7 % Eosinophils (%) (Auto) 0 % Basophils (%) (Auto) 1 % Neutrophils # (Auto) 4.6 x10^3/uL Lymphocytes # (Auto) 0.6 x10^3/uL Monocytes # (Auto) 0.4 x10^3/uL Eosinophils # (Auto) 0.0 x10^3/uL Basophils # (Auto) 0.0 x10^3/uL Sodium Level 138 mmol/L Potassium Level 4.4 mmol/L Chloride Level 101 mmol/L Carbon Dioxide Level 36 mmol/L Anion Gap 1 Blood Urea Nitrogen 18 mg/dL Creatinine 0.9 mg/dL Estimated GFR (Cockcroft-Gault) 75.8 BUN/Creatinine Ratio 20 Glucose Level 193 mg/dL Calcium Level 9.4 mg/dL Magnesium Level 2.5 mg/dL Total Bilirubin 0.4 mg/dL Aspartate Amino Transf (AST/SGOT) 14 U/L Alanine Aminotransferase (ALT/SGPT) 11 U/L Alkaline Phosphatase 70 U/L Troponin I Quantitative < 0.017 ng/mL VI-Qrr-X-Type Natriuretic Peptide 1765 pg/mL Total Protein 7.3 g/dL Albumin 3.5 g/dL Albumin/Globulin Ratio 0.9 Lipase 59 U/L Current Medications Medications (Trade) Dose Ordered Sig/Susan Route PRN Reason Start Time Stop Time Status Last Admin Dose Admin Morphine Sulfate (Morphine Sulfate) 4 mg 1X ONCE IV 09/29/20 17:30 09/29/20 17:31 DC Laboratory Tests Test 09/29/20 17:00 White Blood Count 5.6 x10^3/uL (4.0-11.0) Red Blood Count 3.74 x10^6/uL (3.50-5.40) Hemoglobin 10.6 g/dL (12.0-15.5) L Hematocrit 33.6 % (36.0-47.0) L Mean Corpuscular Volume 90 fL (79-100) Mean Corpuscular Hemoglobin 28 pg (25-35) Mean Corpuscular Hemoglobin Concent 32 g/dL (31-37) Red Cell Distribution Width 15.6 % (11.5-14.5) H Platelet Count 184 x10^3/uL (140-400) Neutrophils (%) (Auto) 82 % (31-73) H Lymphocytes (%) (Auto) 11 % (24-48) L Monocytes (%) (Auto) 7 % (0-9) Eosinophils (%) (Auto) 0 % (0-3) Basophils (%) (Auto) 1 % (0-3) Neutrophils # (Auto) 4.6 x10^3/uL (1.8-7.7) Lymphocytes # (Auto) 0.6 x10^3/uL (1.0-4.8) L Monocytes # (Auto) 0.4 x10^3/uL (0.0-1.1) Eosinophils # (Auto) 0.0 x10^3/uL (0.0-0.7) Basophils # (Auto) 0.0 x10^3/uL (0.0-0.2) Laboratory Tests 09/29/20 17:00 Vital Signs: Vital Signs Date Time Temp Pulse Resp B/P (MAP) Pulse Ox O2 Delivery O2 Flow Rate FiO2 09/29/20 16:54 64 18 180/62 (89) 100 Nasal Cannula EKG: EKG: EKG was done at 1645, heart rate of 69 bpm, sinus rhythm, no ST segment el evation, PVC, no change from previous EKG Radiology/Procedures: Radiology/Procedures: [[facility] [address] [place] [address] IMAGING REPORT Signed PATIENT: GRETCHEN BONILLA EACCOUNT: [id number] : 1955 LOCATION: ER AGE: 65 SEX: F EXAM STATUS: PRE ER ORD. PHYSICIAN: ANDREW RUCKER DO REASON: CHEST PAIN PROCEDURE: PORTABLE CHEST 1V Site ID: [id number] EXAMINATION: XR CHEST 1V. HISTORY: 65 years Female Reason: CHEST PAIN / Spl. Instructions: / History: . . COMPARISON: May 30, 2020. Findings: There is cardiomegaly with the interstitial thickening suggestive of the congestion/interstitial edema. There is no effusion or pneumothorax. The mediastinum and sharmin appear unremarkable. Impression: Findings likely secondary to CHF. Electronically signed by: Krystle Valdez MD (09/29/2020 5:23 PM) [id number] DICTATED and SIGNED BY: KRYSTLE VALDEZ MD DATE: 09/29/20 [id number] 0 Course & Med Decision Making: Course & Med Decision Making Pertinent Labs and Imaging studies reviewed. (See chart for details) Patient is a 65-year-old female who presented to ER due to substernal chest pain associated with exertion, trouble breathing with exertion. Patient had extensive history of coronary artery disease. Patient EKG and lab work did not show any acute problem. Patient will be admitted to hospital for further evaluation and treatment. Discussed with the hospitalist on-call Dr. Robins who agreed to admit the patient Hakeem Disclaimer: Hakeem Disclaimer: This electronic medical record was generated, in whole or in part, using a voice recognition dictation system. Departure Departure Impression: Primary Impression: Chest pain Additional Impression: CHF exacerbation Disposition: ADMITTED INPATIENT Admitting Physician: MAGNUS (Dr. Robins) Condition: STABLE Referrals: NO PCP (PCP) ANDREW RUCKER DO Sep 29, 2020 17:13
--- NOTE | 2020-09-29 17:25 | RAD ---
Site ID: [id number] EXAMINATION: XR CHEST 1V. HISTORY: 65 years Female Reason: CHEST PAIN / Spl. Instructions: / History: . . COMPARISON: May 30, 2020. Findings: There is cardiomegaly with the interstitial thickening suggestive of the congestion/interst itial edema. There is no effusion or pneumothorax. The mediastinum and sharmin appear unremarkable. Impression: Findings likely secondary to CHF. Electronically signed by: Quentin Valdez MD (09/29/2020 5:23 PM) [id number]
[2020-09-29] MEDS ORDERED: MORPHINE SULFATE 4 MG/ML INJ. IV ONE (17:30)
[2020-09-29 17:33] LABS: CALCIUM 9.4 mg/dL (8.5-10.1); CREATININE 0.9 mg/dL (0.6-1.0); GFR 75.8; POTASSIUM 4.4 mmol/L (3.5-5.1)
[2020-09-29 17:38] LABS: ALBUMIN 3.5 g/dL (3.4-5.0); ALBUMIN/GLOBULIN RATIO 0.9 (1.0-1.7); MAGNESIUM 2.5 mg/dL (1.8-2.4); TOTAL BILIRUBIN 0.4 mg/dL (0.2-1.0); TOTAL PROTEIN 7.3 g/dL (6.4-8.2)
[2020-09-29] MEDS ORDERED: ONDANSETRON PF 4 MG/2 ML VIAL. IV PRN (18:00)
[2020-09-29] MEDS ORDERED: MORPHINE SULFATE 2 MG/ML INJ. IV PRN (18:00)
--- NOTE | 2020-09-29 18:19 | EKG ---
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
--- NOTE | 2020-09-29 18:19 | EKG ---
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
[2020-09-29 19:20] VITALS: BP 211/79
[2020-09-29] MEDS ORDERED: NITROGLYCERIN SUBLINGUAL 0.4 MG BOTTLE OF 25. SL PRN (19:30)
[2020-09-29] MEDS ORDERED: hydrALAZINE 20 MG/ML VIAL. IVP PRN (19:30)
[2020-09-29] MEDS ORDERED: guaiFENesin DM 200MG/20MG 10 ML SYRUP PO PRN (19:30)
[2020-09-29] MEDS ORDERED: NON FORMULARY ITEM (Albuterol Sulfate (Ventolin Hfa Inhaler) 2 PUFF) INH SCH (19:30)
--- NOTE | 2020-09-29 19:43 | PDOC1 ---
History and Physical Date of Admission Date of Admission DATE: 09/29/20 TIME: 19:26 Identification/Chief Complaint Chief Complaint Chest pain Source Source: Chart review, Patient History of Present Illness History of Present Illness Patient is a 65-year-old female with past medical history MO, CAD, DM 2, HTN, neuropathy, who presents to the ED with complaint of intermittent chest pain over the past 3 days. She describes her pain more like chest tightness, 7/10. Her chest pain is worse with exertion. She denies any significant alleviating factors. Upon arrival in the ED blood pressure is 180/62 mmHg she was placed on 2 L nasal cannula. She states she does wear oxygen at home as needed. Labs on admission showed hemoglobin 10.6, hematocrit 33.6, CBG 193, BNP 1765, troponin <0.017. EKG showed right bundle branch block. Chest pain is improved with morphine. Chest x-ray on admission showed cardiomegaly with the interstitial thickening suggestive of the congestion. Will admit patient for further medical management. Past Medical History Cardiovascular: CAD, CHF, HTN, MO, Hyperlipidemia, Other Pulmonary: Bronchitis, COPD CENTRAL NERVOUS SYSTEM: Periperal neuropathy GI: GERD Heme/Onc: No pertinent hx Hepatobiliary: Cholelithiasis Psych: No pertinent hx Musculoskeletal: Osteoarthritis, Weakness Rheumatologic: No pertinent hx Infectious disease: No pertinent hx Renal/: Chronic renal insuff Endocrine: Diabetes Past Surgical History Past Surgical History: Pacemaker, Appendectomy, Cholecystectomy, CABG, Total knee replacement, Hysterectomy Family History Family History: Heart Disease Family History: Parent Social History Smoke: No ALCOHOL: none Drugs: None Current Problem List Problem List Problems Medical Problems: (1) Chest pain Status: Acute Current Medications Current Medications Current Medications Morphine Sulfate (Morphine Sulfate) 4 mg 1X ONCE IV Last administered on 09/29/20at 18:05; Start 09/29/20 at 17:30; Stop 09/29/20 at 17:31; Status DC Ondansetron HCl (Zofran) 4 mg PRN Q8HRS PRN IV NAUSEA/VOMITING; Start 09/29/20 at 18:00; Stop 09/30/20 at 17:59 Morphine Sulfate (Morphine Sulfate) 2 mg PRN Q2HR PRN IV PAIN; Start 09/29/20 at 18:00; Stop 09/30/20 at 17:59 Active Scripts Active Culturelle (Lactobacillus Rhamnosus Gg) 1 Each Cap.sprink 1 Cap PO BID 30 Days Dok (Docusate Sodium) 100 Mg Capsule 100 Mg PO PRN DAILY PRN 30 Days Ventolin Hfa Inhaler (Albuterol Sulfate) 18 Gm Hfa.aer.ad 2 Puff INH QID Lidocaine PATCH (Lidocaine) 1 Each Adh..patch 1 Patch TD DAILY 30 Days Admelog (Insulin Lispro) 100 Unit/1 Ml Vial 0 Units SQ TIDWMEALS 30 Days Guaifenesin Dm Syrup (Guaifenesin/Dextromethorphan) 5 Ml Syrup 10 Ml PO PRN Q6HRS PRN 14 Days Benzonatate 100 Mg Capsule 100 Mg PO [id number] 14 Days Protonix (Pantoprazole Sodium) 40 Mg Tablet.dr 40 Mg PO DAILYAC 60 Days Reported Ventolin Hfa Inhaler (Albuterol Sulfate) 18 Gm Hfa.aer.ad 2 Puff INH [id number] Clonazepam 1 Mg Tablet 0.5 Mg PO TID Bumetanide 2 Mg Tablet 2 Mg PO BID Trazodone Hcl 50 Mg Tablet 50 Mg PO HS Spironolactone 50 Mg Tablet 50 Mg PO HS Potassium Chloride (Potassium Chloride) 20 Meq Tablet.er 20 Meq PO BIDWMEALS Percocet 10-325 Mg Tablet (Oxycodone/Acetaminophen) 1 Each Tablet 1 Tab PO PRN Q6HRS PRN Carvedilol 25 Mg Tablet 12.5 Mg PO BIDWMEALS Lantus Solostar (Insulin Glargine,Hum.rec.anlog) 100 Unit/1 Ml Insuln.pen 8 Unit SQ QHS Isosorbide Mononitrate Er (Isosorbide Mononitrate) 30 Mg Tab.er.24h 30 Mg PO DAILY Clopidogrel (Clopidogrel Bisulfate) 75 Mg Tablet 75 Mg PO DAILY Losartan Potassium 100 Mg Tablet 100 Mg PO DAILY Capsaicin 60 Gm Cream..g. 60 Gm TP TID apply to morgan feet Calcium 500 + Vit D 200 Caplet (Calcium Carbonate/Vitamin D3) 1 Each Tablet 1 Each PO DAILY Fluoxetine Hcl 20 Mg Capsule 1 Cap PO DAILY NITROGLYCERIN SubLingual (Nitroglycerin) 0.4 Mg Tab.subl 0.4 Mg SL PRN Q5MIN PRN Atorvastatin Calcium 20 Mg Tablet 20 Mg PO HS Aspir 81 (Aspirin) 81 Mg Tablet.dr 1 Tab PO DAILY Allergies Allergies: Coded Allergies: No Known Drug Allergies (Unverified , 03/13/19) ROS Review of System GENERAL: No history of weight change, weakness or fevers. SKIN: No bruising, hair changes or rashes. EYES: No blurred, double or loss of vision. NOSE AND THROAT: No history of nosebleeds, hoarseness or sore throat. HEART: Chest pain. Denies palpitations. LUNGS: Dyspnea on exertion. Denies cough, hemoptysis, or wheezing. GASTROINTESTINAL: Denies nausea, vomiting, abdominal pain. GENITOURINARY: Denies dysuria, frequency, urgency, hematuria. NEUROLOGIC: Denies history of numbness, tingling, tremor or weakness. PSYCHIATRIC: Denies anxiety, denies depression. ENDOCRINE: No history of heat or cold intolerance, polyuria or polydipsia. EXTREMITIES: Denies muscle weakness, joint pain, pain on walking or stiffness. Physical Exam Physical Exam General: Alert, Oriented X3, Cooperative, No acute distress HEENT: PERRLA, EOMI Lungs: Decreased breath sounds bilaterally, Normal air movement Heart: RRR, no murmurs Cardiovascular: S1, S2 Abdomen: Normal bowel sounds, Soft, No tenderness Extremities: No clubbing, No cyanosis Skin: No rashes, No significant lesion Neuro: Normal speech, Normal tone, Sensation intact Psych/Mental Status: Mental status NL, Mood NL Vitals Vitals Vital Signs Date Time Temp Pulse Resp B/P (MAP) Pulse Ox O2 Delivery O2 Flow Rate FiO2 09/29/20 18:05 18 100 Nasal Cannula 2.0 09/29/20 18:00 60 177/77 (110) 09/29/20 17:30 98.0 98.0 Labs Labs Laboratory Tests Test 09/29/20 17:00 White Blood Count 5.6 x10^3/uL (4.0-11.0) Red Blood Count 3.74 x10^6/uL (3.50-5.40) Hemoglobin 10.6 g/dL (12.0-15.5) Hematocrit 33.6 % (36.0-47.0) Mean Corpuscular Volume 90 fL (79-100) Mean Corpuscular Hemoglobin 28 pg (25-35) Mean Corpuscular Hemoglobin Concent 32 g/dL (31-37) Red Cell Distribution Width 15.6 % (11.5-14.5) Platelet Count 184 x10^3/uL (140-400) Neutrophils (%) (Auto) 82 % (31-73) Lymphocytes (%) (Auto) 11 % (24-48) Monocytes (%) (Auto) 7 % (0-9) Eosinophils (%) (Auto) 0 % (0-3) Basophils (%) (Auto) 1 % (0-3) Neutrophils # (Auto) 4.6 x10^3/uL (1.8-7.7) Lymphocytes # (Auto) 0.6 x10^3/uL (1.0-4.8) Monocytes # (Auto) 0.4 x10^3/uL (0.0-1.1) Eosinophils # (Auto) 0.0 x10^3/uL (0.0-0.7) Basophils # (Auto) 0.0 x10^3/uL (0.0-0.2) Sodium Level 138 mmol/L (136-145) Potassium Level 4.4 mmol/L (3.5-5.1) Chloride Level 101 mmol/L (98-107) Carbon Dioxide Level 36 mmol/L (21-32) Anion Gap 1 (6-14) Blood Urea Nitrogen 18 mg/dL (7-20) Creatinine 0.9 mg/dL (0.6-1.0) Estimated GFR (Cockcroft-Gault) 75.8 BUN/Creatinine Ratio 20 (6-20) Glucose Level 193 mg/dL (70-99) Calcium Level 9.4 mg/dL (8.5-10.1) Magnesium Level 2.5 mg/dL (1.8-2.4) Total Bilirubin 0.4 mg/dL (0.2-1.0) Aspartate Amino Transf (AST/SGOT) 14 U/L (15-37) Alanine Aminotransferase (ALT/SGPT) 11 U/L (14-59) Alkaline Phosphatase 70 U/L (46-116) Troponin I Quantitative < 0.017 ng/mL (0.000-0.055) NS-Lpw-C-Type Natriuretic Peptide 1765 pg/mL (0-124) Total Protein 7.3 g/dL (6.4-8.2) Albumin 3.5 g/dL (3.4-5.0) Albumin/Globulin Ratio 0.9 (1.0-1.7) Lipase 59 U/L (73-393) Laboratory Tests Test 09/29/20 17:00 White Blood Count 5.6 x10^3/uL (4.0-11.0) Red Blood Count 3.74 x10^6/uL (3.50-5.40) Hemoglobin 10.6 g/dL (12.0-15.5) Hematocrit 33.6 % (36.0-47.0) Mean Corpuscular Volume 90 fL (79-100) Mean Corpuscular Hemoglobin 28 pg (25-35) Mean Corpuscular Hemoglobin Concent 32 g/dL (31-37) Red Cell Distribution Width 15.6 % (11.5-14.5) Platelet Count 184 x10^3/uL (140-400) Neutrophils (%) (Auto) 82 % (31-73) Lymphocytes (%) (Auto) 11 % (24-48) Monocytes (%) (Auto) 7 % (0-9) Eosinophils (%) (Auto) 0 % (0-3) Basophils (%) (Auto) 1 % (0-3) Neutrophils # (Auto) 4.6 x10^3/uL (1.8-7.7) Lymphocytes # (Auto) 0.6 x10^3/uL (1.0-4.8) Monocytes # (Auto) 0.4 x10^3/uL (0.0-1.1) Eosinophils # (Auto) 0.0 x10^3/uL (0.0-0.7) Basophils # (Auto) 0.0 x10^3/uL (0.0-0.2) Sodium Level 138 mmol/L (136-145) Potassium Level 4.4 mmol/L (3.5-5.1) Chloride Level 101 mmol/L (98-107) Carbon Dioxide Level 36 mmol/L (21-32) Anion Gap 1 (6-14) Blood Urea Nitrogen 18 mg/dL (7-20) Creatinine 0.9 mg/dL (0.6-1.0) Estimated GFR (Cockcroft-Gault) 75.8 BUN/Creatinine Ratio 20 (6-20) Glucose Level 193 mg/dL (70-99) Calcium Level 9.4 mg/dL (8.5-10.1) Magnesium Level 2.5 mg/dL (1.8-2.4) Total Bilirubin 0.4 mg/dL (0.2-1.0) Aspartate Amino Transf (AST/SGOT) 14 U/L (15-37) Alanine Aminotransferase (ALT/SGPT) 11 U/L (14-59) Alkaline Phosphatase 70 U/L (46-116) Troponin I Quantitative < 0.017 ng/mL (0.000-0.055) QN-Hsb-N-Type Natriuretic Peptide 1765 pg/mL (0-124) Total Protein 7.3 g/dL (6.4-8.2) Albumin 3.5 g/dL (3.4-5.0) Albumin/Globulin Ratio 0.9 (1.0-1.7) Lipase 59 U/L (73-393) Images Images PATIENT: GRETCHEN BONILLA EACCOUNT: [id number] : 1955 LOCATION: ER AGE: 65 SEX: F EXAM STATUS: PRE ER ORD. PHYSICIAN: ANDREW RUCKER DO REASON: CHEST PAIN PROCEDURE: PORTABLE CHEST 1V Site ID: [id number] EXAMINATION: XR CHEST 1V. HISTORY: 65 years Female Reason: CHEST PAIN / Spl. Instructions: / History: . . COMPARISON: May 30, 2020. Findings: There is cardiomegaly with the interstitial thickening suggestive of the congestion/interstitial edema. There is no effusion or pneumothorax. The mediastinum and sharmin appear unremarkable. Impression: Findings likely secondary to CHF. Electronically signed by: Quentin Valdez MD (09/29/2020 5:23 PM) [id number] VTE Prophylaxis Ordered VTE Prophylaxis Devices: No VTE Pharmacological Prophylaxi: Yes Assessment/Plan Assessment/Plan Chest pain History MO CAD Diastolic CHF Hypertension DM2 Neuropathy Plan: Initial troponin <0.017; will continue to trend. Consultation placed to cardiology Echocardiogram from 05/31/2020 showed normal left ventricular systolic function and normal left ventricular segmental wall motion; EF 55-60% Morphine, nitroglycerin as needed Resume home medications FEN - Cardiac diet PPX - Heparin FULL CODE Dispo - inpatient for above Advance Care Planning: Total time spent [id number] with patient 16 minutes in discussion with goals of care, comfort care, end-of-life care, pain management, code status; patient names her son (Ed Soriano) as surrogate decision-maker. Justifications for Admission Other Justification HAYES BRYANT MD Sep 29, 2020 19:43
[2020-09-29] MEDS ORDERED: DEXTROSE 50% 25 GM / 50ML DISP.SYRIN. IV PRN (19:45)
[2020-09-29] MEDS ORDERED: IV DEXTROSE 5% 250 ML BAG. IV PRN (19:45)
[2020-09-29] MEDS ORDERED: ALBUTEROL SULFATE 2.5 MG/3 ML NEBU. NEB PRN (19:45)
[2020-09-29] MEDS: MORPHINE SULFATE 4 MG/ML INJ. IV PRN (19:51)
[2020-09-29] MEDS ORDERED: MAG HYDROX/ALUMINUM HYD/SIMETH 30 ML ORAL.SUSP PO PRN (20:00)
[2020-09-29] MEDS ORDERED: ONDANSETRON PF 4 MG/2 ML VIAL. IVP PRN (20:00)
[2020-09-29] MEDS ORDERED: CALCIUM CARBONATE 500 MG TAB.CHEW PO PRN (20:00)
[2020-09-29] MEDS ORDERED: ACETAMINOPHEN 325 MG TABLET. PO PRN (20:00)
[2020-09-29] MEDS ORDERED: MAGNESIUM HYDROXIDE 2,400 MG/30 ML ORAL.SUSP. PO PRN (20:00)
[2020-09-29] MEDS: PATCH REMOVAL. MC SCH (21:00)
[2020-09-29] MEDS: traZODone 50 MG TABLET. PO SCH (21:05)
[2020-09-29] MEDS: ATORVASTATIN CALCIUM 20 MG TABLET PO SCH (21:05)
[2020-09-29] MEDS: clonazePAM 0.5 MG TABLET PO SCH (21:05)
[2020-09-29] MEDS: BUMETANIDE 1 MG TABLET. PO SCH (21:05)
[2020-09-29] MEDS: SPIRONOLACTONE 25 MG TABLET PO SCH (21:05)
[2020-09-29] MEDS: HEPARIN for SUB-Q USE 5,000 UNIT/ML VIAL. SQ SCH (21:07)
[2020-09-29] MEDS: INSULIN GLARGINE SYRINGE. SQ SCH (21:55)
[2020-09-29] MEDS: CAPSAICIN 0.025% TOPICAL CREAM 60GM TUBE. TP SCH (22:10)
[2020-09-29] MEDS: oxyCODONE/APAP 10/325 1 TAB TABLET PO PRN (22:17)
[2020-09-29 23:00] VITALS: BP 194/79
[2020-09-30] MEDS: MORPHINE SULFATE 4 MG/ML INJ. IV PRN (01:50)
[2020-09-30 02:33] VITALS: BP 165/71
[2020-09-30] MEDS: HEPARIN for SUB-Q USE 5,000 UNIT/ML VIAL. SQ SCH ×3 (06:00→20:36)
[2020-09-30 07:00] VITALS: BP 156/84
--- NOTE | 2020-09-30 07:24 | PDOC ---
[employer] PROGRESS NOTE Date of Service DOS: DATE: 09/30/20 TIME: 07:05 Chief Complaint Chief Complaint Chest pain History MN CAD Diastolic CHF Hypertension DM2 Neuropathy Plan: Initial troponin <0.017; will continue to trend. Consultation placed to cardiology Echocardiogram from 05/31/2020 showed normal left ventricular systolic function and normal left ventricular segmental wall motion; EF 55-60% Morphine, nitroglycerin as needed Resume home medications FEN - Cardiac diet PPX - Heparin FULL CODE Dispo - inpatient for above Advance Care Planning: Total time spent [id number] with patient 16 minutes in discussion with goals of care, comfort care, end-of-life care, pain management, code status; patient names her son (Ed Soriano) as surrogate decision-maker. History of Present Illness History of Present Illness Patient is a 65-year-old female with past medical history MN, CAD, DM 2, HTN, neuropathy, who presents to the ED with complaint of intermittent chest pain over the past 3 days. She describes her pain more like chest tightness, 09/30. Her chest pain is worse with exertion. She denies any significant alleviating factors. Upon arrival in the ED blood pressure is 180/62 mmHg she was placed on 2 L nasal cannula. She states she does wear oxygen at home as needed. Labs on admission showed hemoglobin 10.6, hematocrit 33.6, CBG 193, BNP 1765, troponin <0.017. EKG showed right bundle branch block. Chest pain is improved with morphine. Chest x-ray on admission showed cardiomegaly with the interstitial thickening suggestive of the congestion. Will admit patient for further medical management. 09/30/2020: Afebrile. Breathing on 2 L nasal cannula. Troponins <0.017x3. Chest pain improved. Pending cardiology recommendations, patient may discharge home today. Greater than 30 minutes spent managing discharge of this patient Vitals/I&O Vitals/I&O: Vital Signs Date Time Temp Pulse Resp B/P (MAP) Pulse Ox O2 Delivery O2 Flow Rate FiO2 09/30/20 02:33 98.5 60 18 165/71 (102) 95 Nasal Cannula 2.0 98.5 I & O 09/29/20 09/29/20 09/30/20 15:00 23:00 07:00 Intake Total 400 ml 200 ml Output Total 300 ml 1500 ml Balance 100 ml -1300 ml Physical Exam General: Alert, Oriented X3, Cooperative, No acute distress Heart: Regular rate Lungs: Clear Abdomen: Soft, No tenderness Extremities: No clubbing, No cyanosis Skin: No rashes, No breakdown Labs Labs: Laboratory Tests Test 09/29/20 17:00 09/29/20 19:47 09/29/20 20:43 09/29/20 21:30 White Blood Count 5.6 x10^3/uL (4.0-11.0) Red Blood Count 3.74 x10^6/uL (3.50-5.40) Hemoglobin 10.6 g/dL (12.0-15.5) Hematocrit 33.6 % (36.0-47.0) Mean Corpuscular Volume 90 fL (79-100) Mean Corpuscular Hemoglobin 28 pg (25-35) Mean Corpuscular Hemoglobin Concent 32 g/dL (31-37) Red Cell Distribution Width 15.6 % (11.5-14.5) Platelet Count 184 x10^3/uL (140-400) Neutrophils (%) (Auto) 82 % (31-73) Lymphocytes (%) (Auto) 11 % (24-48) Monocytes (%) (Auto) 7 % (0-9) Eosinophils (%) (Auto) 0 % (0-3) Basophils (%) (Auto) 1 % (0-3) Neutrophils # (Auto) 4.6 x10^3/uL (1.8-7.7) Lymphocytes # (Auto) 0.6 x10^3/uL (1.0-4.8) Monocytes # (Auto) 0.4 x10^3/uL (0.0-1.1) Eosinophils # (Auto) 0.0 x10^3/uL (0.0-0.7) Basophils # (Auto) 0.0 x10^3/uL (0.0-0.2) Sodium Level 138 mmol/L (136-145) Potassium Level 4.4 mmol/L (3.5-5.1) Chloride Level 101 mmol/L (98-107) Carbon Dioxide Level 36 mmol/L (21-32) Anion Gap 1 (6-14) Blood Urea Nitrogen 18 mg/dL (7-20) Creatinine 0.9 mg/dL (0.6-1.0) Estimated GFR (Cockcroft-Gault) 75.8 BUN/Creatinine Ratio 20 (6-20) Glucose Level 193 mg/dL (70-99) Calcium Level 9.4 mg/dL (8.5-10.1) Magnesium Level 2.5 mg/dL (1.8-2.4) Total Bilirubin 0.4 mg/dL (0.2-1.0) Aspartate Amino Transf (AST/SGOT) 14 U/L (15-37) Alanine Aminotransferase (ALT/SGPT) 11 U/L (14-59) Alkaline Phosphatase 70 U/L (46-116) Troponin I Quantitative < 0.017 ng/mL (0.000-0.055) < 0.017 ng/mL (0.000-0.055) < 0.017 ng/mL (0.000-0.055) BL-Mdj-[id number]-Type Natriuretic Peptide 1765 pg/mL (0-124) Total Protein 7.3 g/dL (6.4-8.2) Albumin 3.5 g/dL (3.4-5.0) Albumin/Globulin Ratio 0.9 (1.0-1.7) Lipase 59 U/L (73-393) Glucose (Fingerstick) 172 mg/dL (70-99) Assessment and Plan Assessmemt and Plan Problems Medical Problems: (1) Chest pain Status: Acute Comment Review of Relevant I have reviewed the following items nolan (where applicable) has been applied. Medications: Current Medications Medications (Trade) Dose Ordered Sig/Susan Route PRN Reason Start Time Stop Time Status Last Admin Dose Admin Morphine Sulfate (Morphine Sulfate) 4 mg 1X ONCE IV 09/29/20 17:30 09/29/20 17:31 DC 09/29/20 18:05 Atorvastatin Calcium (Lipitor) 20 mg HS PO 09/29/20 21:00 09/29/20 21:05 Capsaicin (Zostrix) 1 tre TID TP 09/29/20 21:00 09/29/20 22:10 Oxycodone/ Acetaminophen (Percocet 10/325) 1 tab PRN Q6HRS PRN PO MODERATE TO SEVERE PAIN 09/29/20 19:30 09/29/20 22:17 Trazodone HCl (Desyrel) 50 mg HS PO 09/29/20 21:00 09/29/20 21:05 Bumetanide (Bumex) 2 mg BID PO 09/29/20 21:00 09/29/20 21:05 Clonazepam (KlonoPIN) 0.5 mg TID PO 09/29/20 21:00 09/29/20 21:05 Spironolactone (Aldactone) 50 mg HS PO 09/29/20 21:00 09/29/20 21:05 Miscellaneous (Lidoderm Patch Removal) 1 ea QHS MC 09/29/20 21:00 09/29/20 21:00 Insulin Glargine (Lantus Syringe) 8 unit QHS SQ 09/29/20 21:00 09/29/20 21:55 Morphine Sulfate (Morphine Sulfate) 4 mg PRN Q2HR PRN IV MODERATE TO SEVERE PAIN 09/29/20 19:45 09/30/20 01:50 Heparin Sodium (Porcine) (Heparin Sodium) 5,000 unit Q8HRS SQ 09/29/20 20:00 09/29/20 21:07 Justifications for Admission Other Justification HAYES BRYANT MD Sep 30, 2020 07:24
--- NOTE | 2020-09-30 07:28 | PDOC3 ---
Discharge Summary Visit Information Date of Admission: Sep 29, 2020 Date of Discharge: Sep 30, 2020 Final Diagnosis Problems Medical Problems: (1) Chest pain Status: Acute Brief Hospital Course Allergies Allergies Coded Allergies Type Severity Reaction Last Updated Verified No Known Drug Allergies 03/13/19 No Vital Signs Vital Signs Date Time Temp Pulse Resp B/P (MAP) Pulse Ox O2 Delivery O2 Flow Rate FiO2 09/30/20 02:33 98.5 60 18 165/71 (102) 95 Nasal Cannula 2.0 98.5 Lab Results Laboratory Tests Test 09/29/20 17:00 09/29/20 19:47 09/29/20 20:43 09/29/20 21:30 White Blood Count 5.6 x10^3/uL (4.0-11.0) Red Blood Count 3.74 x10^6/uL (3.50-5.40) Hemoglobin 10.6 g/dL (12.0-15.5) Hematocrit 33.6 % (36.0-47.0) Mean Corpuscular Volume 90 fL (79-100) Mean Corpuscular Hemoglobin 28 pg (25-35) Mean Corpuscular Hemoglobin Concent 32 g/dL (31-37) Red Cell Distribution Width 15.6 % (11.5-14.5) Platelet Count 184 x10^3/uL (140-400) Neutrophils (%) (Auto) 82 % (31-73) Lymphocytes (%) (Auto) 11 % (24-48) Monocytes (%) (Auto) 7 % (0-9) Eosinophils (%) (Auto) 0 % (0-3) Basophils (%) (Auto) 1 % (0-3) Neutrophils # (Auto) 4.6 x10^3/uL (1.8-7.7) Lymphocytes # (Auto) 0.6 x10^3/uL (1.0-4.8) Monocytes # (Auto) 0.4 x10^3/uL (0.0-1.1) Eosinophils # (Auto) 0.0 x10^3/uL (0.0-0.7) Basophils # (Auto) 0.0 x10^3/uL (0.0-0.2) Sodium Level 138 mmol/L (136-145) Potassium Level 4.4 mmol/L (3.5-5.1) Chloride Level 101 mmol/L (98-107) Carbon Dioxide Level 36 mmol/L (21-32) Anion Gap 1 (6-14) Blood Urea Nitrogen 18 mg/dL (7-20) Creatinine 0.9 mg/dL (0.6-1.0) Estimated GFR (Cockcroft-Gault) 75.8 BUN/Creatinine Ratio 20 (6-20) Glucose Level 193 mg/dL (70-99) Calcium Level 9.4 mg/dL (8.5-10.1) Magnesium Level 2.5 mg/dL (1.8-2.4) Total Bilirubin 0.4 mg/dL (0.2-1.0) Aspartate Amino Transf (AST/SGOT) 14 U/L (15-37) Alanine Aminotransferase (ALT/SGPT) 11 U/L (14-59) Alkaline Phosphatase 70 U/L (46-116) Troponin I Quantitative < 0.017 ng/mL (0.000-0.055) < 0.017 ng/mL (0.000-0.055) < 0.017 ng/mL (0.000-0.055) MG-Qaj-E-Type Natriuretic Peptide 1765 pg/mL (0-124) Total Protein 7.3 g/dL (6.4-8.2) Albumin 3.5 g/dL (3.4-5.0) Albumin/Globulin Ratio 0.9 (1.0-1.7) Lipase 59 U/L (73-393) Glucose (Fingerstick) 172 mg/dL (70-99) Laboratory Tests Test 09/29/20 17:00 09/29/20 19:47 09/29/20 20:43 09/29/20 21:30 White Blood Count 5.6 x10^3/uL (4.0-11.0) Red Blood Count 3.74 x10^6/uL (3.50-5.40) Hemoglobin 10.6 g/dL (12.0-15.5) Hematocrit 33.6 % (36.0-47.0) Mean Corpuscular Volume 90 fL (79-100) Mean Corpuscular Hemoglobin 28 pg (25-35) Mean Corpuscular Hemoglobin Concent 32 g/dL (31-37) Red Cell Distribution Width 15.6 % (11.5-14.5) Platelet Count 184 x10^3/uL (140-400) Neutrophils (%) (Auto) 82 % (31-73) Lymphocytes (%) (Auto) 11 % (24-48) Monocytes (%) (Auto) 7 % (0-9) Eosinophils (%) (Auto) 0 % (0-3) Basophils (%) (Auto) 1 % (0-3) Neutrophils # (Auto) 4.6 x10^3/uL (1.8-7.7) Lymphocytes # (Auto) 0.6 x10^3/uL (1.0-4.8) Monocytes # (Auto) 0.4 x10^3/uL (0.0-1.1) Eosinophils # (Auto) 0.0 x10^3/uL (0.0-0.7) Basophils # (Auto) 0.0 x10^3/uL (0.0-0.2) Sodium Level 138 mmol/L (136-145) Potassium Level 4.4 mmol/L (3.5-5.1) Chloride Level 101 mmol/L (98-107) Carbon Dioxide Level 36 mmol/L (21-32) Anion Gap 1 (6-14) Blood Urea Nitrogen 18 mg/dL (7-20) Creatinine 0.9 mg/dL (0.6-1.0) Estimated GFR (Cockcroft-Gault) 75.8 BUN/Creatinine Ratio 20 (6-20) Glucose Level 193 mg/dL (70-99) Calcium Level 9.4 mg/dL (8.5-10.1) Magnesium Level 2.5 mg/dL (1.8-2.4) Total Bilirubin 0.4 mg/dL (0.2-1.0) Aspartate Amino Transf (AST/SGOT) 14 U/L (15-37) Alanine Aminotransferase (ALT/SGPT) 11 U/L (14-59) Alkaline Phosphatase 70 U/L (46-116) Troponin I Quantitative < 0.017 ng/mL (0.000-0.055) < 0.017 ng/mL (0.000-0.055) < 0.017 ng/mL (0.000-0.055) ZO-Joe-K-Type Natriuretic Peptide 1765 pg/mL (0-124) Total Protein 7.3 g/dL (6.4-8.2) Albumin 3.5 g/dL (3.4-5.0) Albumin/Globulin Ratio 0.9 (1.0-1.7) Lipase 59 U/L (73-393) Glucose (Fingerstick) 172 mg/dL (70-99) Brief Hospital Course Ms. Laguna is a 65 old female who presented with chest pain at rest. EKG showed right bundle branch block. Chest pain is improved with morphine. Chest x-ray on admission showed cardiomegaly with the interstitial thickening suggestive of the congestion. Troponins <0.017x3. Seen by cardiology, and okay to discharge from CV standpoint. She was stable to discharge home with self- care and follow-up with her PCP within 5 to 7 days, and cardiology outpatient. Discharge Information Condition at Discharge: Stable Follow Up: Weeks Disposition/Orders: D/C to Home Scheduled Albuterol Sulfate (Ventolin Hfa Inhaler) 18 Gm Hfa.aer.ad, 2 PUFF INH [id number] for FOR ASTHMA, Ref 0 (Reported) Entered as Reported by: JOVANNY MORALES on 01/08/202203 Last Action: Converted on 09/29/201929 by HAYES BRYANT MD Albuterol Sulfate (Ventolin Hfa Inhaler) 18 Gm Hfa.aer.ad, 2 PUFF INH QID for FOR ASTHMA, #1 Ref 0 Prescribed by: MARCIO ALANIZ DO on 04/13/20 2359 Aspirin (Aspir 81) 81 Mg Tablet.dr, 1 TAB PO DAILY, #30 Ref 5 (Reported) Entered as Reported by: FIFI WALSH on 10/28/16 1058 Last Action: Continued on 09/29/201929 by HAYES BRYANT MD Atorvastatin Calcium (Atorvastatin Calcium) 20 Mg Tablet, 20 MG PO HS for FOR CHOLESTEROL, #30 Ref 0 (Reported) Entered as Reported by: FIFI WALSH on 10/28/16 1108 Last Action: Continued on 09/29/201929 by HAYES BRYANT MD Benzonatate (Benzonatate) 100 Mg Capsule, 100 MG PO [id number] for COUGH for 14 Days, #60 Prescribed by: JHON ZAPIEN MD on 03/07/20 1716 Bumetanide (Bumetanide) 2 Mg Tablet, 2 MG PO BID for DIURETIC, (Reported) Entered as Reported by: JOVANNY MORALES on 01/08/202203 Last Action: Converted on 09/29/201929 by HAYES BRYANT MD Calcium Carbonate/Vitamin D3 (Calcium 500 + Vit D 200 Caplet) 1 Each Tablet, 1 EACH PO DAILY for supplement, (Reported) Entered as Reported by: KENNEY YANG on 05/16/182321 Capsaicin (Capsaicin) 60 Gm Cream..g., 60 GM TP TID for , (Reported) apply to morgan feet Entered as Reported by: Tiffany Dodson on 07/14/182110 Last Action: Continued on 09/29/201929 by HAYES BRYANT MD Carvedilol (Carvedilol) 25 Mg Tablet, 12.5 MG PO BIDWMEALS for CARDIAC, (Reported) Entered as Reported by: JOVANNY MORALES on 01/08/202203 Last Action: Converted on 09/29/201929 by HAYES BRYANT MD Clonazepam (Clonazepam) 1 Mg Tablet, 0.5 MG PO TID for FOR ANXIETY, (Reported) Entered as Reported by: JOVANNY MORALES on 01/08/202203 Last Action: Converted on 09/29/201929 by HAYES BRYANT MD Clopidogrel Bisulfate (Clopidogrel) 75 Mg Tablet, 75 MG PO DAILY for TO PREVENT BLOOD CLOTS, #30 Ref 0 (Reported) Entered as Reported by: Laureano Nazario RN on 10/10/19 0703 Last Action: Continued on 09/29/201929 by HAYES BRYANT MD Fluoxetine Hcl (Fluoxetine Hcl) 20 Mg Capsule, 1 CAP PO DAILY for anti- depressent, #90 Ref 1 (Reported) Entered as Reported by: KENNEY YANG on 05/16/182321 Last Action: HELD on 09/29/201929 by HAYES BRYANT MD Insulin Glargine,Hum.rec.anlog (Lantus Solostar) 100 Unit/1 Ml Insuln.pen, 8 UNIT SQ QHS for diabetes, #15 Ref 3 (Reported) Entered as Reported by: JOVANNY MORALES on 01/08/202203 Insulin Lispro (Admelog) 100 Unit/1 Ml Vial, 0 UNITS SQ TIDWMEALS for DIABETES for 30 Days, #2 Prescribed by: JHON ZAPIEN MD on 03/07/20 1716 Isosorbide Mononitrate (Isosorbide Mononitrate Er) 30 Mg Tab.er.24h, 30 MG PO DAILY for hypertension, (Reported) Entered as Reported by: JOVANNY MORALES on 01/08/202203 Last Action: Continued on 09/29/201929 by HAYES BRYANT MD Lactobacillus Rhamnosus Gg (Culturelle) 1 Each Cap.sprink, 1 CAP PO BID for SUPPLEMENT for 30 Days, #60 Prescribed by: JHON ZAPIEN MD on 06/02/20 1337 Lidocaine (Lidocaine PATCH ) 1 Each Adh..patch, 1 PATCH TD DAILY for BACK PAIN for 30 Days, #30 Prescribed by: JHON ZAPIEN MD on 03/07/201715 Last Action: Continued on 09/29/201929 by HAYES BRYANT MD Losartan Potassium (Losartan Potassium) 100 Mg Tablet, 100 MG PO DAILY for HYPERTENSION, (Reported) Entered as Reported by: Laureano Nazario RN on 10/10/19 0703 Last Action: Converted on 09/29/201929 by HAYES BRYANT MD Pantoprazole Sodium (Protonix ) 40 Mg Tablet.dr, 40 MG PO DAILYAC for GERD for 60 Days, #60 Prescribed by: CATHIE KNIGHT on 01/29/19 0857 Last Action: Continued on 09/29/201929 by HAYES BRYANT MD Potassium Chloride (Potassium Chloride ) 20 Meq Tablet.er, 20 MEQ PO BIDWMEALS for SUPPLEMENT, (Reported) Entered as Reported by: JOVANNY MORALES on 01/08/202203 Last Action: Continued on 09/29/201929 by HAYES BRYANT MD Spironolactone (Spironolactone) 50 Mg Tablet, 50 MG PO HS for HEART, (Reported) Entered as Reported by: JOVANNY MORALES on 01/08/202203 Last Action: Converted on 09/29/201929 by HAYES BRYANT MD Trazodone Hcl (Trazodone Hcl) 50 Mg Tablet, 50 MG PO HS for DEPRESSION, SLEEP, (Reported) Entered as Reported by: JOVANNY MORALES on 01/08/202203 Last Action: Continued on 09/29/201929 by HAYES BRYANT MD Scheduled PRN Docusate Sodium (Dok) 100 Mg Capsule, 100 MG PO PRN DAILY PRN for HARD STOOLS for 30 Days, #30 Prescribed by: JHON ZAPIEN MD on 06/02/20 1337 Guaifenesin/Dextromethorphan (Guaifenesin Dm Syrup) 5 Ml Syrup, 10 ML PO PRN Q6HRS PRN for COUGH for 14 Days, #240 Prescribed by: JHON ZAPIEN MD on 03/07/20 1716 Last Action: Continued on 09/29/201929 by HAYES BRYANT MD Nitroglycerin (NITROGLYCERIN SubLingual) 0.4 Mg Tab.subl, 0.4 MG SL PRN Q5MIN PRN for CHEST PAIN, (Reported) Entered as Reported by: LOYDA CELAYA RN on 11/01/16 0013 Last Action: Continued on 09/29/201929 by HAYES BRYANT MD Oxycodone/Apap 10-325 (Percocet 10-325 Mg Tablet ) 1 Each Tablet, 1 TAB PO PRN Q6HRS PRN for PAIN, Ref 0 (Reported) Entered as Reported by: JOVANNY MORALES on 01/08/20 2204 Last Action: Continued on 09/29/201929 by HAYES BRYANT MD Justicifation of Admission Dx: Justifications for Admission: Justification of Admission Dx: N/A HAYES BRYANT MD Sep 30, 2020 07:28
[2020-09-30] MEDS: INSULIN LISPRO 300 UNITS/3 ML VIAL. SQ SCH ×3 (08:00→17:00)
[2020-09-30] MEDS: PANTOPRAZOLE 40 MG TABLET.DR. PO SCH (08:27)
[2020-09-30] MEDS: ASPIRIN ENTERIC COATED 81 MG TABLET.DR. PO SCH (08:27)
[2020-09-30] MEDS: CLOPIDOGREL BISULFATE 75 MG TABLET PO SCH (08:28)
[2020-09-30] MEDS: clonazePAM 0.5 MG TABLET PO SCH ×3 (08:28→20:35)
[2020-09-30] MEDS: oxyCODONE/APAP 10/325 1 TAB TABLET PO PRN ×3 (08:28→20:36)
[2020-09-30] MEDS: ISOSORBIDE MONONITRATE ER 30 MG TAB.ER.24H PO SCH (08:29)
[2020-09-30] MEDS: BUMETANIDE 1 MG TABLET. PO SCH ×2 (08:29→20:35)
[2020-09-30] MEDS: POTASSIUM CHLORIDE 20 MEQ TABLET.ER. PO SCH ×2 (08:29→17:50)
[2020-09-30] MEDS: CARVEDILOL 12.5 MG TABLET. PO SCH ×2 (08:29→17:50)
[2020-09-30] MEDS: LOSARTAN POTASSIUM 50 MG TABLET. PO SCH (08:30)
[2020-09-30] MEDS: LIDOCAINE (700MG/PATCH) PATCH. TD SCH (08:30)
[2020-09-30] MEDS: CAPSAICIN 0.025% TOPICAL CREAM 60GM TUBE. TP SCH ×3 (08:30→21:33)
[2020-09-30 08:44] LABS: HEMOGLOBIN 10.8 g/dL (12.0-15.5); RED BLOOD COUNT 3.77 x10^6/uL (3.50-5.40); RED CELL DISTRIBUTION WIDTH 15.7 % (11.5-14.5); WHITE BLOOD COUNT 5.9 x10^3/uL (4.0-11.0)
[2020-09-30 09:07] LABS: CALCIUM 9.9 mg/dL (8.5-10.1); CREATININE 0.8 mg/dL (0.6-1.0); GFR 86.8; POTASSIUM 3.9 mmol/L (3.5-5.1)
[2020-09-30 11:28] VITALS: BP 142/66
--- NOTE | 2020-09-30 12:16 | PDOC2 ---
CARDIOLOGY CONSULT NOTE DATE OF SERVICE: DATE: 09/30/20 TIME: 11:55 HPI: Nupur Valadez is a 59 yo woman here for chest pain and SOB. I met with her at the bed side and she states that she is still having SOB and some chest pain. she indicates that the pain is located in the center of her chest and upper abdomen. She states that it radiates to her upper chest on the right side. It is tender to the touch. She says that exertion worsens the pain and rest slightly helps the pain. she also states that she ahs some pressure in her head, but no vision changes. She rates the pain at a 7-8/10. she also says that she has some exertional chest pain and dysnpea. She states that she takes her meds as scheduled and tolerates them. PMHX: CABG is 2014 SOCHX: No tobacco use No alcohol use No recreational drug use No caffeine use Disabled FAMHX: Dad: [place], T2DM CURRENT MEDS: Current Medications Medications (Trade) Dose Ordered Sig/Susan Route PRN Reason Start Time Stop Time Status Last Admin Dose Admin Morphine Sulfate (Morphine Sulfate) 4 mg 1X ONCE IV 09/29/20 17:30 09/29/20 17:31 DC 09/29/20 18:05 Aspirin (Ecotrin) 81 mg DAILY PO 09/30/20 09:00 09/30/20 08:27 Atorvastatin Calcium (Lipitor) 20 mg HS PO 09/29/20 21:00 09/29/20 21:05 Capsaicin (Zostrix) 1 tre TID TP 09/29/20 21:00 09/30/20 08:30 Clopidogrel Bisulfate (Plavix) 75 mg DAILY PO 09/30/20 09:00 09/30/20 08:28 Isosorbide Mononitrate (Imdur) 30 mg DAILY PO 09/30/20 09:00 09/30/20 08:29 Lidocaine (Lidoderm) 1 patch DAILY TD 09/30/20 09:00 09/30/20 08:30 Oxycodone/ Acetaminophen (Percocet 10/325) 1 tab PRN Q6HRS PRN PO MODERATE TO SEVERE PAIN 09/29/20 19:30 09/30/20 08:28 Pantoprazole Sodium (Protonix) 40 mg DAILYAC PO 09/30/20 07:30 09/30/20 08:27 Potassium Chloride (Klor-Con) 20 meq BIDWMEALS PO 09/30/20 08:00 09/30/20 08:29 Trazodone HCl (Desyrel) 50 mg HS PO 09/29/20 21:00 09/29/20 21:05 Bumetanide (Bumex) 2 mg BID PO 09/29/20 21:00 09/30/20 08:29 Carvedilol (Coreg) 12.5 mg BIDWMEALS PO 09/30/20 08:00 09/30/20 08:29 Clonazepam (KlonoPIN) 0.5 mg TID PO 09/29/20 21:00 09/30/20 08:28 Losartan Potassium (Cozaar) 100 mg DAILY PO 09/30/20 09:00 09/30/20 08:30 Spironolactone (Aldactone) 50 mg HS PO 09/29/20 21:00 09/29/20 21:05 Miscellaneous (Lidoderm Patch Removal) 1 ea QHS MC 09/29/20 21:00 09/29/20 21:00 Insulin Glargine (Lantus Syringe) 8 unit QHS SQ 09/29/20 21:00 09/29/20 21:55 Morphine Sulfate (Morphine Sulfate) 4 mg PRN Q2HR PRN IV MODERATE TO SEVERE PAIN 09/29/20 19:45 09/30/20 01:50 Heparin Sodium (Porcine) (Heparin Sodium) 5,000 unit Q8HRS SQ 09/29/20 20:00 09/29/20 21:07 ALLERGIES: NKDA Allergies Coded Allergies Type Severity Reaction Last Updated Verified No Known Drug Allergies 03/13/19 No ROS: Review of System GENERAL: No history of weight change, weakness or fevers. SKIN: No bruising, hair changes or rashes. EYES: No blurred, double or loss of vision. NOSE AND THROAT: No history of nosebleeds, hoarseness or sore throat. HEART: Chest pain. Denies palpitations. LUNGS: Dyspnea on exertion. Denies cough, hemoptysis, or wheezing. GASTROINTESTINAL: Denies nausea, vomiting, abdominal pain. GENITOURINARY: Denies dysuria, frequency, urgency, hematuria. NEUROLOGIC: Denies history of numbness, tingling, tremor or weakness. PSYCHIATRIC: Denies anxiety, denies depression. ENDOCRINE: No history of heat or cold intolerance, polyuria or polydipsia. EXTREMITIES: Denies muscle weakness, joint pain, pain on walking or stiffness. PHYSICAL EXAM: Vital Signs/I&O: Vital Signs Date Time Temp Pulse Resp B/P (MAP) Pulse Ox O2 Delivery O2 Flow Rate FiO2 09/30/20 11:28 98.8 60 16 142/66 (91) 94 Nasal Cannula 2.0 98.8 I & O 09/29/20 09/29/20 09/30/20 15:00 23:00 07:00 Intake Total 400 ml 200 ml Output Total 300 ml 1500 ml Balance 100 ml -1300 ml Physical Exam: GEN: In no acute distress, normal affect HEAD: No trauma, normal cephalic EYE: Pupils equal and reactive to light, No scleral icterus CV: Normal rhythm, rate of 60. No Mururs, rubs, gallops LUNGS: CTAB ABD: Tenderness to palpation in epigastric region. Normal bowel sounds. NEURO: Ao x3 Extremities: Strength +5/5 upper and lower, bilateral. No LE edema DIAGNOSTIC TESTING: Lab Laboratory Tests Test 09/29/20 17:00 09/29/20 20:43 09/30/20 08:10 09/30/20 08:17 White Blood Count 5.6 x10^3/uL (4.0-11.0) 5.9 x10^3/uL (4.0-11.0) Red Blood Count 3.74 x10^6/uL (3.50-5.40) 3.77 x10^6/uL (3.50-5.40) Hemoglobin 10.6 g/dL (12.0-15.5) L 10.8 g/dL (12.0-15.5) L Hematocrit 33.6 % (36.0-47.0) L 34.0 % (36.0-47.0) L Mean Corpuscular Volume 90 fL (79-100) 90 fL (79-100) Mean Corpuscular Hemoglobin 28 pg (25-35) 29 pg (25-35) Mean Corpuscular Hemoglobin Concent 32 g/dL (31-37) 32 g/dL (31-37) Red Cell Distribution Width 15.6 % (11.5-14.5) H 15.7 % (11.5-14.5) H Platelet Count 184 x10^3/uL (140-400) 206 x10^3/uL (140-400) Neutrophils (%) (Auto) 82 % (31-73) H Lymphocytes (%) (Auto) 11 % (24-48) L Monocytes (%) (Auto) 7 % (0-9) Eosinophils (%) (Auto) 0 % (0-3) Basophils (%) (Auto) 1 % (0-3) Neutrophils # (Auto) 4.6 x10^3/uL (1.8-7.7) Lymphocytes # (Auto) 0.6 x10^3/uL (1.0-4.8) L Monocytes # (Auto) 0.4 x10^3/uL (0.0-1.1) Eosinophils # (Auto) 0.0 x10^3/uL (0.0-0.7) Basophils # (Auto) 0.0 x10^3/uL (0.0-0.2) Sodium Level 138 mmol/L (136-145) 144 mmol/L (136-145) Potassium Level 4.4 mmol/L (3.5-5.1) 3.9 mmol/L (3.5-5.1) Chloride Level 101 mmol/L (98-107) 100 mmol/L (98-107) Carbon Dioxide Level 36 mmol/L (21-32) H 43 mmol/L (21-32) H Anion Gap 1 (6-14) L 1 (6-14) L Blood Urea Nitrogen 18 mg/dL (7-20) 15 mg/dL (7-20) Creatinine 0.9 mg/dL (0.6-1.0) 0.8 mg/dL (0.6-1.0) Estimated GFR (Cockcroft-Gault) 75.8 86.8 BUN/Creatinine Ratio 20 (6-20) Glucose Level 193 mg/dL (70-99) H 80 mg/dL (70-99) Calcium Level 9.4 mg/dL (8.5-10.1) 9.9 mg/dL (8.5-10.1) Total Bilirubin 0.4 mg/dL (0.2-1.0) Aspartate Amino Transf (AST/SGOT) 14 U/L (15-37) L Alkaline Phosphatase 70 U/L (46-116) Total Protein 7.3 g/dL (6.4-8.2) Albumin 3.5 g/dL (3.4-5.0) Albumin/Globulin Ratio 0.9 (1.0-1.7) L Lipase 59 U/L (73-393) L Glucose (Fingerstick) 172 mg/dL (70-99) H 106 mg/dL (70-99) H Laboratory Tests 09/30/20 08:10 ASSESSMENT: 1) Chest Pain 2) CAD 3) HTN 4) T2DM 5) CHF 6) GERD PLAN: #Chest Pain -Non-cardiac chest pain (EKG, Biomarkers negative making ACS less likely) -Cannot rule out microvascular disease from uncontrolled HTN. She has had extensive prior w/u for her uncontrolled HTN. -Pain mgmt for her chronic msk pain. -Epigastric reproducible chest pain, consider GERD or MSK pain. #CAD: -ASA, Plavix, artovastatin #HTN -Restart home meds. #CHF -Losartan, Carvedilol, Spironalactone -Continue diuretics. Ok to DC from CV standpoint. We will f/u on an outpt basis. Thanks. SOY MOHAMUD MD Sep 30, 2020 12:16
[2020-09-30 15:00] VITALS: BP 141/84
[2020-09-30 19:50] VITALS: BP 150/67
[2020-09-30] MEDS: PATCH REMOVAL. MC SCH (20:34)
[2020-09-30] MEDS: traZODone 50 MG TABLET. PO SCH (20:35)
[2020-09-30] MEDS: ATORVASTATIN CALCIUM 20 MG TABLET PO SCH (20:35)
[2020-09-30] MEDS: SPIRONOLACTONE 25 MG TABLET PO SCH (20:35)
[2020-09-30] MEDS: INSULIN GLARGINE SYRINGE. SQ SCH (21:33)
[2020-09-30 23:05] VITALS: BP 176/75
[2020-10-01 03:45] VITALS: BP 139/61
[2020-10-01] MEDS: oxyCODONE/APAP 10/325 1 TAB TABLET PO PRN ×3 (04:09→17:19)
[2020-10-01] MEDS: HEPARIN for SUB-Q USE 5,000 UNIT/ML VIAL. SQ SCH ×2 (06:11→13:56)
--- NOTE | 2020-10-01 06:49 | PDOC ---
[employer] PROGRESS NOTE Date of Service DOS: DATE: 10/01/20 TIME: 06:47 Chief Complaint Chief Complaint Chest pain History UT CAD Diastolic CHF Hypertension DM2 Neuropathy Plan: Initial troponin <0.017; will continue to trend. Consultation placed to cardiology Echocardiogram from 05/31/2020 showed normal left ventricular systolic function and normal left ventricular segmental wall motion; EF 55-60% Morphine, nitroglycerin as needed Resume home medications FEN - Cardiac diet PPX - Heparin FULL CODE Dispo - inpatient for above Advance Care Planning: Total time spent [id number] with patient 16 minutes in discussion with goals of care, comfort care, end-of-life care, pain management, code status; patient names her son (Ed Soriano) as surrogate decision-maker. History of Present Illness History of Present Illness Patient is a 65-year-old female with past medical history UT, CAD, DM 2, HTN, neuropathy, who presents to the ED with complaint of intermittent chest pain over the past 3 days. She describes her pain more like chest tightness, 09/30. Her chest pain is worse with exertion. She denies any significant alleviating factors. Upon arrival in the ED blood pressure is 180/62 mmHg she was placed on 2 L nasal cannula. She states she does wear oxygen at home as needed. Labs on admission showed hemoglobin 10.6, hematocrit 33.6, CBG 193, BNP 1765, troponin <0.017. EKG showed right bundle branch block. Chest pain is improved with morphine. Chest x-ray on admission showed cardiomegaly with the interstitial thickening suggestive of the congestion. Will admit patient for further medical management. 09/30/2020: Afebrile. Breathing on 2 L nasal cannula. Troponins <0.017x3. Chest pain improved. Pending cardiology recommendations, patient may discharge home today. Greater than 30 minutes spent managing discharge of this patient 10/01/2020: Patient still breathing on her baseline O2 requirement 2 L nasal cannula. Seen by cardiology, and okay to discharge from CV standpoint. No acute events overnight, no new complaints. Greater than 30 minutes spent managing the discharge of this patient. Vitals/I&O Vitals/I&O: Vital Signs Date Time Temp Pulse Resp B/P (MAP) Pulse Ox O2 Delivery O2 Flow Rate FiO2 10/01/20 04:39 92 Nasal Cannula 2.0 10/01/20 03:45 98.2 60 18 139/61 (87) 98.2 I & O 09/30/20 09/30/20 10/01/20 15:00 23:00 07:00 Intake Total 600 ml 180 ml 240 ml Output Total 1300 ml 1300 ml 1300 ml Balance -700 ml -1120 ml -1060 ml Physical Exam General: Alert, Oriented X3, Cooperative, No acute distress Heart: Regular rate Lungs: Clear Abdomen: Soft, No tenderness Extremities: No clubbing, No cyanosis Skin: No rashes, No breakdown Labs Labs: Laboratory Tests Test 09/30/20 08:10 09/30/20 08:17 09/30/20 12:03 09/30/20 17:13 White Blood Count 5.9 x10^3/uL (4.0-11.0) Red Blood Count 3.77 x10^6/uL (3.50-5.40) Hemoglobin 10.8 g/dL (12.0-15.5) Hematocrit 34.0 % (36.0-47.0) Mean Corpuscular Volume 90 fL (79-100) Mean Corpuscular Hemoglobin 29 pg (25-35) Mean Corpuscular Hemoglobin Concent 32 g/dL (31-37) Red Cell Distribution Width 15.7 % (11.5-14.5) Platelet Count 206 x10^3/uL (140-400) Sodium Level 144 mmol/L (136-145) Potassium Level 3.9 mmol/L (3.5-5.1) Chloride Level 100 mmol/L (98-107) Carbon Dioxide Level 43 mmol/L (21-32) Anion Gap 1 (6-14) Blood Urea Nitrogen 15 mg/dL (7-20) Creatinine 0.8 mg/dL (0.6-1.0) Estimated GFR (Cockcroft-Gault) 86.8 Glucose Level 80 mg/dL (70-99) Calcium Level 9.9 mg/dL (8.5-10.1) Glucose (Fingerstick) 106 mg/dL (70-99) 134 mg/dL (70-99) 120 mg/dL (70-99) Test 09/30/20 20:46 Glucose (Fingerstick) 125 mg/dL (70-99) Assessment and Plan Assessmemt and Plan Problems Medical Problems: (1) Chest pain Status: Acute Comment Review of Relevant I have reviewed the following items nolan (where applicable) has been applied. Medications: Current Medications Medications (Trade) Dose Ordered Sig/Susan Route PRN Reason Start Time Stop Time Status Last Admin Dose Admin Aspirin (Ecotrin) 81 mg DAILY PO 09/30/20 09:00 09/30/20 08:27 Clopidogrel Bisulfate (Plavix) 75 mg DAILY PO 09/30/20 09:00 09/30/20 08:28 Isosorbide Mononitrate (Imdur) 30 mg DAILY PO 09/30/20 09:00 09/30/20 08:29 Lidocaine (Lidoderm) 1 patch DAILY TD 09/30/20 09:00 09/30/20 08:30 Pantoprazole Sodium (Protonix) 40 mg DAILYAC PO 09/30/20 07:30 09/30/20 08:27 Potassium Chloride (Klor-Con) 20 meq BIDWMEALS PO 09/30/20 08:00 09/30/20 17:50 Carvedilol (Coreg) 12.5 mg BIDWMEALS PO 09/30/20 08:00 09/30/20 17:50 Losartan Potassium (Cozaar) 100 mg DAILY PO 09/30/20 09:00 09/30/20 08:30 Justifications for Admission Other Justification HAYES BRYANT MD Oct 01, 2020 06:48
[2020-10-01 07:00] VITALS: BP 141/65
[2020-10-01] MEDS: INSULIN LISPRO 300 UNITS/3 ML VIAL. SQ SCH ×3 (08:00→17:00)
[2020-10-01] MEDS: CARVEDILOL 12.5 MG TABLET. PO SCH ×2 (08:28→17:20)
[2020-10-01] MEDS: ASPIRIN ENTERIC COATED 81 MG TABLET.DR. PO SCH (08:29)
[2020-10-01] MEDS: POTASSIUM CHLORIDE 20 MEQ TABLET.ER. PO SCH ×2 (08:29→17:19)
[2020-10-01] MEDS: BUMETANIDE 1 MG TABLET. PO SCH (08:29)
[2020-10-01] MEDS: clonazePAM 0.5 MG TABLET PO SCH ×2 (08:29→14:31)
[2020-10-01] MEDS: LOSARTAN POTASSIUM 50 MG TABLET. PO SCH (08:29)
[2020-10-01] MEDS: CLOPIDOGREL BISULFATE 75 MG TABLET PO SCH (08:29)
[2020-10-01] MEDS: PANTOPRAZOLE 40 MG TABLET.DR. PO SCH (08:29)
[2020-10-01] MEDS: LIDOCAINE (700MG/PATCH) PATCH. TD SCH (08:30)
[2020-10-01] MEDS: ISOSORBIDE MONONITRATE ER 30 MG TAB.ER.24H PO SCH (08:30)
[2020-10-01] MEDS: CAPSAICIN 0.025% TOPICAL CREAM 60GM TUBE. TP SCH ×2 (08:30→13:56)
[2020-10-01 11:00] VITALS: BP 150/67
[2020-10-01] MEDS ORDERED: oxyCODONE/APAP 10/325 1 TAB TABLET PO ONE (12:00)
[2020-10-01 15:00] VITALS: BP 131/61
[2020-10-01 17:20] VITALS: BP 131/61
[2020-12-28] MEDS ORDERED: AMLO-186 PO (17:36)
[2020-12-28] MEDS ORDERED: SPIR50TA4 PO (17:36)
[2020-12-28] MEDS ORDERED: INSU100V6 SQ (17:36)
[2020-12-28] MEDS ORDERED: ZOLP5TAB PO (17:57)
[2021-03-24] MEDS ORDERED: EMPA10TA3 PO (05:47)
== END 2020-10-01 19:00 | disposition home or self-care (01) | DRG 392 ==
LOC: ER 16:37 → 2 SOUTH 17:50
PROVIDERS: ADMIT Family Medicine; ATTEND Family Medicine
DX: K21.9 Gastro-esophageal reflux disease without esophagitis (principal); I13.0 Hypertensive heart and chronic kidney disease with heart failure and stage 1 through stage 4 chronic kidney disease, or unspecified chronic kidney disease; I50.30 Unspecified diastolic (congestive) heart failure; E11.22 Type 2 diabetes mellitus with diabetic chronic kidney disease; E11.40 Type 2 diabetes mellitus with diabetic neuropathy, unspecified; E78.00 Pure hypercholesterolemia, unspecified; E78.5 Hyperlipidemia, unspecified; I25.10 Atherosclerotic heart disease of native coronary artery without angina pectoris; I25.2 Old myocardial infarction; I45.10 Unspecified right bundle-branch block; J44.9 Chronic obstructive pulmonary disease, unspecified; N18.9 Chronic kidney disease, unspecified; Z90.49 Acquired absence of other specified parts of digestive tract; Z90.710 Acquired absence of both cervix and uterus; Z95.1 Presence of aortocoronary bypass graft; Z96.659 Presence of unspecified artificial knee joint; G89.29 Other chronic pain; M19.90 Unspecified osteoarthritis, unspecified site
CPT/HCPCS: 36415; 71045; 80048; 80053; 82962; 83690; 83735; 83880; 84484; 85025; 85027; 93005; J1644; J1815; J2270; 99285-25; G0378

== ENCOUNTER 2020-11-01 14:59 | Observation (INO) | payer MEDICARE, MEDICAID ==
[~2020-11-01] VITALS: Ht 162.6 cm; Wt 104.6 kg
[~2020-11-01 14:59] MED LIST changes: -DICY20TA PO; +DICY20TA3 PO; +EMPA10TA PO; -EMPA10TA3 PO; +FLUO20CA20 PO; -FLUO20CA22 PO
--- NOTE | 2020-11-01 15:40 | PHYS DOC ---
Past Medical History Past Medical History: CHF, COPD, Diabetes-Type II, High Cholesterol, Hype rtension, VA, Other Additional Past Medical Histor: O2 @ 2-3 L , chronic pain, NEUROPATHY Past Surgical History: Appendectomy, Cholecystectomy, Coronary Bypass Surgery, Hysterectomy, Knee Replacement, Other Additional Past Surgical Histo: HERNIA REPAIR, CABG X 2 VESSELS 2015; breast reduction; L knee Smoking Status: Never Smoker Alcohol Use: None Drug Use: None General Adult EDM: Chief Complaint: SHORTNESS OF BREATH HPI: HPI: Patient is a 65 year old female who present to ER for evaluation of substernal chest pain that started last night. Patient also complained of trouble breathing.. Patient denies any cough or fever. Patient has history of coronary artery disease, CHF, diabetic, hypertension. Her doctors are at [facility]. Review of Systems: Review of Systems: Constitutional: Denies fever or chills. [] Eyes: Denies change in visual acuity. [] HENT: Denies nasal congestion or sore throat. [] Respiratory: Denies cough or shortness of breath. [] Cardiovascular: Positive for chest pain, no edema. GI: Denies abdominal pain, nausea, vomiting, bloody stools or diarrhea. [] : Denies dysuria. [] Musculoskeletal: Denies back pain or joint pain. [] Integument: Denies rash. [] Neurologic: Denies headache, focal weakness or sensory changes. [] Endocrine: Denies polyuria or polydipsia. [] Lymphatic: Denies swollen glands. [] Psychiatric: Denies depression or anxiety. [] Heart Score: C/O Chest Pain: Yes HEART Score for Chest Pain: HEART Score for Chest Pain Response (Comments) Value History Moderately Suspicious 1 ECG Nonspecific Repolarizatio 1 Age > 65 2 Risk Factors >3 Risk Factors or Hx CAD 2 Troponin < Normal Limit 0 Total 6 Risk Factors: Risk Factors: DM, Current or recent (<one month) smoker, HTN, HLP, family history of CAD, obesity. Risk Scores: Score 0 - 3: 2.5% MACE over next 6 weeks - Discharge Home Score 4 - 6: 20.3% MACE over next 6 weeks - Admit for Clinical Observation Score 7 - 10: 72.7% MACE over next 6 weeks - Early Invasive Strategies Current Medications: Current Medications Medications (Trade) Dose Ordered Sig/Susan Start Time Stop Time Status Last Admin Dose Admin Morphine Sulfate (Morphine Sulfate) 4 mg 1X ONCE 11/01/20 15:45 11/01/20 15:46 UNV Allergies: Allergies: Allergies Coded Allergies Type Severity Reaction Last Updated Verified No Known Drug Allergies 03/13/19 No Physical Exam: PE: Constitutional: Well developed, well nourished, no acute distress, non-toxic appearance. [] HENT: Normocephalic, atraumatic, bilateral external ears normal, oropharynx moist, no oral exudates, nose normal. [] Eyes: PERRLA, EOMI, conjunctiva normal, no discharge. [] Neck: Normal range of motion, no tenderness, supple, no stridor. [] Cardiovascular:Heart rate regular rhythm, no murmur [] Lungs & Thorax: Bilateral breath sounds clear to auscultation [] Abdomen: Bowel sounds normal, soft, no tenderness, no masses, no pulsatile masses. [] Skin: Warm, dry, no erythema, no rash. [] Back: No tenderness, no CVA tenderness. [] Extremities: No tenderness, no cyanosis, no clubbing, ROM intact, pitting edema 2+ Neurologic: Alert and oriented X 3, normal motor function, normal sensory function, no focal deficits noted. [] Psychologic: Affect normal, judgement normal, mood normal. [] Current Patient Data: Labs: Laboratory Tests Test 11/01/20 16:00 11/01/20 16:17 White Blood Count 7.0 x10^3/uL Red Blood Count 3.69 x10^6/uL Hemoglobin 10.5 g/dL Hematocrit 32.5 % Mean Corpuscular Volume 88 fL Mean Corpuscular Hemoglobin 29 pg Mean Corpuscular Hemoglobin Concent 32 g/dL Red Cell Distribution Width 15.1 % Platelet Count 223 x10^3/uL Neutrophils (%) (Auto) 81 % Lymphocytes (%) (Auto) 11 % Monocytes (%) (Auto) 7 % Eosinophils (%) (Auto) 0 % Basophils (%) (Auto) 1 % Neutrophils # (Auto) 5.7 x10^3/uL Lymphocytes # (Auto) 0.7 x10^3/uL Monocytes # (Auto) 0.5 x10^3/uL Eosinophils # (Auto) 0.0 x10^3/uL Basophils # (Auto) 0.1 x10^3/uL Sodium Level 142 mmol/L Potassium Level 3.8 mmol/L Chloride Level 102 mmol/L Carbon Dioxide Level 36 mmol/L Anion Gap 4 Blood Urea Nitrogen 10 mg/dL Creatinine 0.8 mg/dL Estimated GFR (Cockcroft-Gault) 86.8 BUN/Creatinine Ratio 13 Glucose Level 113 mg/dL Calcium Level 9.5 mg/dL Magnesium Level 2.0 mg/dL Total Bilirubin 0.6 mg/dL Aspartate Amino Transf (AST/SGOT) 22 U/L Alanine Aminotransferase (ALT/SGPT) 19 U/L Alkaline Phosphatase 80 U/L Troponin I Quantitative < 0.017 ng/mL NA-[id number]-Type Natriuretic Peptide 3289 pg/mL Total Protein 7.1 g/dL Albumin 3.2 g/dL Albumin/Globulin Ratio 0.8 Lipase 70 U/L SARS-CoV-2 Antigen (Rapid) Negative Current Medications Medications (Trade) Dose Ordered Sig/Susan Route PRN Reason Start Time Stop Time Status Last Admin Dose Admin Morphine Sulfate (Morphine Sulfate) 4 mg 1X ONCE IVP 11/01/20 15:45 11/01/20 15:46 DC 11/01/20 16:11 EKG: EKG: EKG was done at 1518, heart rate of 72 bpm, sinus rhythm, no ST segment elevati on Radiology/Procedures: Radiology/Procedures: [][facility] [address] [place] [address] IMAGING REPORT Signed PATIENT: GRETCHEN BONILLA EACCOUNT: [id number] : 1955 LOCATION: ER AGE: 65 SEX: F EXAM STATUS: REG ER ORD. PHYSICIAN: ANDREW RUCKER DO REASON: chest pain PROCEDURE: PORTABLE CHEST 1V XR CHEST 1V History: Chest pain. Comparison: 09/29/2020, 05/30/2020 Technique: Portable AP radiograph of the chest. Findings: Right chest dual-chamber cardiac pacemaker-defibrillator in stable positioning. There is stable cardiomegaly with dilation of the pulmonary vasculature. No airspace consolidation, pleural effusion or pneumothorax. Postsurgical changes of the mediastinum. Osseous structures and soft tissues are unremarkable. Impression: 1. Cardiomegaly and pulmonary vascular congestion. Electronically signed by: Jesús Quintero MD (11/01/2020 3:40 PM) [facility] DICTATED and SIGNED BY: JESÚS QUINTERO MD DATE: 11/01/20 [id number] 0 Course & Med Decision Making: Course & Med Decision Making Pertinent Labs and Imaging studies reviewed. (See chart for details) [] Dragon Disclaimer: Dragon Disclaimer: This electronic medical record was generated, in whole or in part, using a voice recognition dictation system. Departure Departure Impression: Primary Impression: Chest pain Disposition: ADMITTED INPATIENT Admitting Physician: MAGNUS (Dr. Aguirre) Condition: STABLE Referrals: NO PCP (PCP) ANDREW RUCKER DO Nov 01, 2020 15:40
[2020-11-01] MEDS ORDERED: MORPHINE SULFATE 4 MG/ML INJ. IVP ONE (15:45)
[2020-11-01 16:13] LABS: BASO # 0.1 x10^3/uL (0.0-0.2); BASO % 1 % (0-3); EOS % 0 % (0-3); HEMATOCRIT 32.5 % (36.0-47.0); HEMOGLOBIN 10.5 g/dL (12.0-15.5); LYMPH # 0.7 x10^3/uL (1.0-4.8); LYMPH % 11 % (24-48); MEAN CORPUSCULAR HEMOGLOBIN 29 pg (25-35); MEAN CORPUSCULAR HGB CONC 32 g/dL (31-37); MEAN CORPUSCULAR VOLUME 88 fL (79-100); MONO # 0.5 x10^3/uL (0.0-1.1); MONO % 7 % (0-9); NEUT # 5.7 x10^3/uL (1.8-7.7); NEUT % 81 % (31-73); PLATELET COUNT 223 x10^3/uL (140-400); RED BLOOD COUNT 3.69 x10^6/uL (3.50-5.40); RED CELL DISTRIBUTION WIDTH 15.1 % (11.5-14.5)
--- NOTE | 2020-11-01 16:13 | EKG ---
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
[2020-11-01 16:36] LABS: CALCIUM 9.5 mg/dL (8.5-10.1); CREATININE 0.8 mg/dL (0.6-1.0); GFR 86.8; POTASSIUM 3.8 mmol/L (3.5-5.1)
[2020-11-01 16:46] LABS: ALBUMIN 3.2 g/dL (3.4-5.0); ALBUMIN/GLOBULIN RATIO 0.8 (1.0-1.7); TOTAL BILIRUBIN 0.6 mg/dL (0.2-1.0); TOTAL PROTEIN 7.1 g/dL (6.4-8.2)
[2020-11-01] MEDS ORDERED: DOCUSATE SODIUM 100 MG CAPSULE. PO PRN (18:30)
[2020-11-01] MEDS ORDERED: SENNOSIDES 8.6 MG TABLET PO PRN (18:30)
[2020-11-01] MEDS ORDERED: PROCHLORPERAZINE 10 MG/2 ML VIAL. IV PRN (18:30)
[2020-11-01] MEDS ORDERED: ONDANSETRON PF 4 MG/2 ML VIAL. IVP PRN (18:30)
[2020-11-01] MEDS ORDERED: MORPHINE SULFATE 2 MG/ML INJ. IV PRN (18:30)
[2020-11-01] MEDS ORDERED: ACETAMINOPHEN 325 MG TABLET. PO PRN (18:30)
[2020-11-01] MEDS ORDERED: DEXTROSE 50% 25 GM / 50ML DISP.SYRIN. IV PRN (18:30)
--- NOTE | 2020-11-01 18:57 | EKG ---
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
[2020-11-01] MEDS: ENOXAPARIN 40 MG/0.4 ML SYRINGE. SQ SCH (20:45)
[2020-11-01] MEDS: MORPHINE SULFATE 2 MG/ML INJ. IVP PRN ×2 (20:46→23:27)
[2020-11-01 22:00] VITALS: BP 183/52
--- NOTE | 2020-11-01 22:18 | NUR ---
Admit to [facility] from ER via [facility]. A/O x 4 on arrival. Stood and ambulated from [facility] to bed in room with standby assist. Reports chest pain and short of breath for 3 days. C/O generalized chronic pain. Request box lunch. Orientated to room and call light. Reviewed POC. Verbalized understanding. Resting in bed. Eating box lunch. Watching TV. Call light at hand.
--- NOTE | 2020-11-01 23:21 | PDOC1 ---
History and Physical Date of Service: DOS: DATE: 11/01/20 TIME: 23:16 Chief Complaint: Chief Complain: Chest pain History of Present Illness: HPI: Patient is a 65-year-old female with past medical history of diabetes mellitus type 2, COPD on 2 to 3 L nasal cannula of home O2, CHF, hypertension, history of CABG x2 vessels in 2014, breast reduction who comes in with substernal chest pain that started last night. She also complains of associated shortness of breath. Most of her physicians that see her at [facility]. Denies fevers, abdominal pain, diarrhea, dysuria or palpitations or syncope. Past Medical/Surgical History: PMH/PSH: Past Medical History: CHF, COPD, Diabetes-Type II, High Cholesterol, Hypertension, [place], O2 @ 2-3 L , chronic pain, NEUROPATHY Past Surgical History: Appendectomy, Cholecystectomy, Coronary Bypass Surgery, Hysterectomy, Knee Replacement, HERNIA REPAIR, CABG X 2 VESSELS 2014; breast reduction; L knee Allergies: Allergies: Coded Allergies: No Known Drug Allergies (Unverified , 11/01/20) Family History: Family History: Reviewed with no relevant findings Social History: Social History: Smoking Status: Never Smoker Alcohol Use: None Drug Use: None Current Medications: Current Medications Current Medications Morphine Sulfate (Morphine Sulfate) 4 mg 1X ONCE IVP Last administered on 11/01/20at 16:11; Start 11/01/20 at 15:45; Stop 11/01/20 at 15:46; Status DC Sennosides (Senna) 17.2 mg PRN BID PRN PO CONSTIPATION; Start 11/01/20 at 18:30 Docusate Sodium (Colace) 100 mg PRN DAILY PRN PO HARD STOOLS; Start 11/01/20 at 18:30 Ondansetron HCl (Zofran) 4 mg PRN Q6HRS PRN IVP NAUSEA/VOMITING Last administered on 11/01/20at 20:44; Start 11/01/20 at 18:30 Aspirin (Ecotrin) 81 mg DAILYWBKFT PO ; Start 11/02/20 at 08:00 Insulin Human Lispro (HumaLOG) 0-7 UNITS TIDWMEALS SQ ; Start 11/02/20 at 08:00 Dextrose (Dextrose 50%-Water Syringe) 12.5 gm PRN Q15MIN PRN IV SEE COMMENTS; Start 11/01/20 at 18:30 Acetaminophen (Tylenol) 650 mg PRN Q4HRS PRN PO TEMP OVER 100.4F OR MILD PAIN; Start 11/01/20 at 18:30 Enoxaparin Sodium (Lovenox 40mg Syringe) 40 mg Q24H SQ Last administered on 11/01/20at 20:45; Start 11/01/20 at 21:00 Morphine Sulfate (Morphine Sulfate) 1 mg PRN Q1HR PRN IV PAIN; Start 11/01/20 at 18:30 Morphine Sulfate (Morphine Sulfate) 2 mg PRN Q2HR PRN IVP SEVERE PAIN 7-10 Last administered on 11/01/20at 20:46; Start 11/01/20 at 18:30; Stop 11/02/20 at 18:29 Prochlorperazine Edisylate (Compazine) 10 mg PRN Q6HRS PRN IV NAUSEA/VOMITING; Start 11/01/20 at 18:30 Active Scripts Active Culturelle (Lactobacillus Rhamnosus Gg) 1 Each Cap.sprink 1 Cap PO BID 30 Days Dok (Docusate Sodium) 100 Mg Capsule 100 Mg PO PRN DAILY PRN 30 Days Lidocaine PATCH (Lidocaine) 1 Each Adh..patch 1 Patch TD DAILY 30 Days Admelog (Insulin Lispro) 100 Unit/1 Ml Vial 0 Units SQ TIDWMEALS 30 Days Guaifenesin Dm Syrup (Guaifenesin/Dextromethorphan) 5 Ml Syrup 10 Ml PO PRN Q6HRS PRN 14 Days Benzonatate 100 Mg Capsule 100 Mg PO [id number] 14 Days Protonix (Pantoprazole Sodium) 40 Mg Tablet.dr 40 Mg PO DAILYAC 60 Days Reported Ventolin Hfa Inhaler (Albuterol Sulfate) 18 Gm Hfa.aer.ad 2 Puff INH [id number] Clonazepam 1 Mg Tablet 0.5 Mg PO TID Bumetanide 2 Mg Tablet 2 Mg PO BID Trazodone Hcl 50 Mg Tablet 50 Mg PO HS Spironolactone 50 Mg Tablet 50 Mg PO HS Potassium Chloride (Potassium Chloride) 20 Meq Tablet.er 20 Meq PO BIDWMEALS Percocet 10-325 Mg Tablet (Oxycodone/Acetaminophen) 1 Each Tablet 1 Tab PO PRN Q6HRS PRN Carvedilol 25 Mg Tablet 12.5 Mg PO BIDWMEALS Lantus Solostar (Insulin Glargine,Hum.rec.anlog) 100 Unit/1 Ml Insuln.pen 8 Unit SQ QHS Isosorbide Mononitrate Er (Isosorbide Mononitrate) 30 Mg Tab.er.24h 30 Mg PO DAILY Clopidogrel (Clopidogrel Bisulfate) 75 Mg Tablet 75 Mg PO DAILY Losartan Potassium 100 Mg Tablet 100 Mg PO DAILY Capsaicin 60 Gm Cream..g. 60 Gm TP TID apply to morgan feet Calcium 500 + Vit D 200 Caplet (Calcium Carbonate/Vitamin D3) 1 Each Tablet 1 Each PO DAILY Fluoxetine Hcl 20 Mg Capsule 1 Cap PO DAILY NITROGLYCERIN SubLingual (Nitroglycerin) 0.4 Mg Tab.subl 0.4 Mg SL PRN Q5MIN PRN Atorvastatin Calcium 20 Mg Tablet 20 Mg PO HS Aspir 81 (Aspirin) 81 Mg Tablet. 1 Tab PO DAILY ROS: Review of Systems Review of System REVIEW OF SYSTEMS: GENERAL: Denies weakness SKIN: No bruising, hair changes or rashes. EYES: No blurred, double or loss of vision. NOSE AND THROAT: No history of nosebleeds, hoarseness or sore throat. HEART: No history of palpitations, chest pain or shortness of breath on exertion. LUNGS: Denies cough, hemoptysis, wheezing or shortness of breath. GASTROINTESTINAL: Denies changes in appetite, nausea, vomiting, diarrhea or constipation. GENITOURINARY: No history of frequency, urgency, hesitancy or nocturia. NEUROLOGIC: Denies history of numbness, tingling, or tremor. PSYCHIATRIC: No history of panic, anxiety or depression. ENDOCRINE: No history of heat or cold intolerance, polyuria or polydipsia. EXTREMITIES: Denies joint pain, pain on walking or stiffness. Physical Exam: Vital Signs: Vital Signs Date Time Temp Pulse Resp B/P (MAP) Pulse Ox O2 Delivery O2 Flow Rate FiO2 11/01/20 21:16 20 100 Nasal Cannula 2.0 11/01/20 19:00 62 205/84 (124) 11/01/20 15:54 97.9 97.9 Physcial Exam: GEN: No apparent distress. Alert and oriented HEENT: Normal cephalic, atraumatic, external auditory canals are patent EYES: Extraocular muscles are intact, pupil are equally round and reactive to light and accommodation MUSCULOSKELETAL: Well developed , well nourished, good range of motion ENDOCRINE: No thyromegaly was palpated LYMPHATICS: No cervical chain or axillary nodes were noted HEMATOPOIETIC: No bruising NECK: Supple, no JVD, no thyromegaly was noted LUNGS: Clear to auscultation in all lung tripp without rhonchi or wheezing HEART: RRR, S!, S2 present. Peripheral pulses intact, no obvious murmurs noted ABDOMEN: Soft, nontender. Positive bowel sounds, no organomegaly, normal bow el sounds EXTREMITIES: Without clubbing, cyanosis, or edema. Pedal pulses intact. Negative Homans sign NEUROLOGIC: Normal speech and tone. A&O x 3, moves all extremities, no obvious focal deficits PSYCHIATRIC: Normal affect, normal mood. Stable SKIN: No ulcerations or rashes, good skin turgor, no jaundice VASCULAR: Good capillary refill, neurovascular bundle appears to be intact Labs: Labs: Laboratory Tests Test 11/01/20 16:00 11/01/20 16:17 11/01/20 18:30 11/01/20 20:46 White Blood Count 7.0 x10^3/uL (4.0-11.0) Red Blood Count 3.69 x10^6/uL (3.50-5.40) Hemoglobin 10.5 g/dL (12.0-15.5) Hematocrit 32.5 % (36.0-47.0) Mean Corpuscular Volume 88 fL (79-100) Mean Corpuscular Hemoglobin 29 pg (25-35) Mean Corpuscular Hemoglobin Concent 32 g/dL (31-37) Red Cell Distribution Width 15.1 % (11.5-14.5) Platelet Count 223 x10^3/uL (140-400) Neutrophils (%) (Auto) 81 % (31-73) Lymphocytes (%) (Auto) 11 % (24-48) Monocytes (%) (Auto) 7 % (0-9) Eosinophils (%) (Auto) 0 % (0-3) Basophils (%) (Auto) 1 % (0-3) Neutrophils # (Auto) 5.7 x10^3/uL (1.8-7.7) Lymphocytes # (Auto) 0.7 x10^3/uL (1.0-4.8) Monocytes # (Auto) 0.5 x10^3/uL (0.0-1.1) Eosinophils # (Auto) 0.0 x10^3/uL (0.0-0.7) Basophils # (Auto) 0.1 x10^3/uL (0.0-0.2) Sodium Level 142 mmol/L (136-145) Potassium Level 3.8 mmol/L (3.5-5.1) Chloride Level 102 mmol/L (98-107) Carbon Dioxide Level 36 mmol/L (21-32) Anion Gap 4 (6-14) Blood Urea Nitrogen 10 mg/dL (7-20) Creatinine 0.8 mg/dL (0.6-1.0) Estimated GFR (Cockcroft-Gault) 86.8 BUN/Creatinine Ratio 13 (6-20) Glucose Level 113 mg/dL (70-99) Calcium Level 9.5 mg/dL (8.5-10.1) Magnesium Level 2.0 mg/dL (1.8-2.4) Total Bilirubin 0.6 mg/dL (0.2-1.0) Aspartate Amino Transf (AST/SGOT) 22 U/L (15-37) Alanine Aminotransferase (ALT/SGPT) 19 U/L (14-59) Alkaline Phosphatase 80 U/L (46-116) Troponin I Quantitative < 0.017 ng/mL (0.000-0.055) < 0.017 ng/mL (0.000-0.055) QF-Tdx-H-Type Natriuretic Peptide 3289 pg/mL (0-124) Total Protein 7.1 g/dL (6.4-8.2) Albumin 3.2 g/dL (3.4-5.0) Albumin/Globulin Ratio 0.8 (1.0-1.7) Lipase 70 U/L (73-393) SARS-CoV-2 Antigen (Rapid) Negative (NEGATIVE) Glucose (Fingerstick) 95 mg/dL (70-99) Laboratory Tests Test 11/01/20 16:00 11/01/20 16:17 11/01/20 18:30 11/01/20 20:46 White Blood Count 7.0 x10^3/uL (4.0-11.0) Red Blood Count 3.69 x10^6/uL (3.50-5.40) Hemoglobin 10.5 g/dL (12.0-15.5) Hematocrit 32.5 % (36.0-47.0) Mean Corpuscular Volume 88 fL (79-100) Mean Corpuscular Hemoglobin 29 pg (25-35) Mean Corpuscular Hemoglobin Concent 32 g/dL (31-37) Red Cell Distribution Width 15.1 % (11.5-14.5) Platelet Count 223 x10^3/uL (140-400) Neutrophils (%) (Auto) 81 % (31-73) Lymphocytes (%) (Auto) 11 % (24-48) Monocytes (%) (Auto) 7 % (0-9) Eosinophils (%) (Auto) 0 % (0-3) Basophils (%) (Auto) 1 % (0-3) Neutrophils # (Auto) 5.7 x10^3/uL (1.8-7.7) Lymphocytes # (Auto) 0.7 x10^3/uL (1.0-4.8) Monocytes # (Auto) 0.5 x10^3/uL (0.0-1.1) Eosinophils # (Auto) 0.0 x10^3/uL (0.0-0.7) Basophils # (Auto) 0.1 x10^3/uL (0.0-0.2) Sodium Level 142 mmol/L (136-145) Potassium Level 3.8 mmol/L (3.5-5.1) Chloride Level 102 mmol/L (98-107) Carbon Dioxide Level 36 mmol/L (21-32) Anion Gap 4 (6-14) Blood Urea Nitrogen 10 mg/dL (7-20) Creatinine 0.8 mg/dL (0.6-1.0) Estimated GFR (Cockcroft-Gault) 86.8 BUN/Creatinine Ratio 13 (6-20) Glucose Level 113 mg/dL (70-99) Calcium Level 9.5 mg/dL (8.5-10.1) Magnesium Level 2.0 mg/dL (1.8-2.4) Total Bilirubin 0.6 mg/dL (0.2-1.0) Aspartate Amino Transf (AST/SGOT) 22 U/L (15-37) Alanine Aminotransferase (ALT/SGPT) 19 U/L (14-59) Alkaline Phosphatase 80 U/L (46-116) Troponin I Quantitative < 0.017 ng/mL (0.000-0.055) < 0.017 ng/mL (0.000-0.055) FP-Tqv-H-Type Natriuretic Peptide 3289 pg/mL (0-124) Total Protein 7.1 g/dL (6.4-8.2) Albumin 3.2 g/dL (3.4-5.0) Albumin/Globulin Ratio 0.8 (1.0-1.7) Lipase 70 U/L (73-393) SARS-CoV-2 Antigen (Rapid) Negative (NEGATIVE) Glucose (Fingerstick) 95 mg/dL (70-99) Images: Images PROCEDURE: PORTABLE CHEST 1V XR CHEST 1V History: Chest pain. Comparison: 09/29/2020, 05/30/2020 Technique: Portable AP radiograph of the chest. Findings: Right chest dual-chamber cardiac pacemaker-defibrillator in stable positioning. There is stable cardiomegaly with dilation of the pulmonary vasculature. No airspace consolidation, pleural effusion or pneumothorax. Postsurgical changes of the mediastinum. Osseous structures and soft tissues are unremarkable. Impression: 1. Cardiomegaly and pulmonary vascular congestion. Assessment/Plan Assessment/Plan Chest pain concerning for unstable angina/NSTEMI versus STEMI Anemia of chronic disease Morbid obesity Elevated BNP suggestive of volume overload Moderate protein malnutrition History of diabetes mellitus type 2 COPD on 2 to 3 L nasal cannula History of CABG Admit to hospital service for further management IV Lasix diuresis x1 EKG showing no acute ST elevations Troponin negative x2 Continue aspirin, consider Plavix if intermediate risk will defer this to cardiology Cardiology consulted for predischarge stress testing or left heart cath Continue nitroglycerin as needed for pain Continue beta-sybil if blood pressures allow Continue high intensity statins IV morphine as needed Consider Lovenox Maintain O2 sats between 88 to 95% Trend troponins Repeat EKG in the a.m. Continue telemetry monitoring Monitor for electrolyte abnormalities Avoid NSAIDs Justifications for Admission Chest Pain Indications Serious Diagnosis?: Yes Justification for admission: Chest pain may be indicative of potentially serious diagnosis/diagnoses Please state condition(s) which will require inpatient level of care for further evaluation and management. Is patient at high risk?: Yes Justification for admission: Patient is high risk based on hemodynamic instability, CHF, abnormal EKG/ECG/cardiac biomarkers/physical exam findings in context of chest pain persisting despite parenteral analgesics & optimal anti-anginal therapy. Other Justification DEIDRE WELLINGTON MD Nov 01, 2020 23:21
[2020-11-02 02:35] VITALS: BP 166/99
[2020-11-02] MEDS: MORPHINE SULFATE 2 MG/ML INJ. IVP PRN (04:10)
[2020-11-02] MEDS ORDERED: FUROSEMIDE 40 MG/4 ML VIAL. IVP ONE (05:00)
[2020-11-02 07:00] VITALS: BP 189/99
[2020-11-02] MEDS: INSULIN LISPRO 300 UNITS/3 ML VIAL. SQ SCH ×5 (08:00→17:00)
[2020-11-02] MEDS ORDERED: guaiFENesin DM 200MG/20MG 10 ML SYRUP PO PRN (10:15)
[2020-11-02] MEDS ORDERED: DOCUSATE SODIUM 100 MG CAPSULE. PO PRN (10:15)
[2020-11-02] MEDS ORDERED: NITROGLYCERIN SUBLINGUAL 0.4 MG BOTTLE OF 25. SL PRN (10:15)
[2020-11-02] MEDS ORDERED: NON FORMULARY ITEM (Albuterol Sulfate (Ventolin Hfa Inhaler) 2 PUFF) INH SCH (10:15)
[2020-11-02] MEDS ORDERED: oxyCODONE/APAP 10/325 1 TAB TABLET PO PRN (10:15)
[2020-11-02] MEDS ORDERED: ALBUTEROL SULFATE 2.5 MG/3 ML NEBU. NEB PRN (10:45)
[2020-11-02 11:00] VITALS: BP 190/57
[2020-11-02] MEDS ORDERED: ASPIRIN ENTERIC COATED 81 MG TABLET.DR. PO SCH (11:00)
[2020-11-02] MEDS: PANTOPRAZOLE 40 MG TABLET.DR. PO SCH (11:11)
[2020-11-02] MEDS: ASPIRIN ENTERIC COATED 81 MG TABLET.DR. PO SCH (11:11)
[2020-11-02] MEDS: LACTOBACILLUS RHAMNOSUS GG 1 CAPSULE. PO SCH ×2 (11:11→21:15)
[2020-11-02] MEDS: ISOSORBIDE MONONITRATE ER 30 MG TAB.ER.24H PO SCH (11:12)
[2020-11-02] MEDS: BUMETANIDE 1 MG TABLET. PO SCH ×2 (11:12→21:15)
[2020-11-02] MEDS: SPIRONOLACTONE 25 MG TABLET PO SCH (11:12)
[2020-11-02] MEDS: LOSARTAN POTASSIUM 50 MG TABLET. PO SCH (11:12)
[2020-11-02] MEDS: CALCIUM CARB/VIT D3 500/200 TABLET. PO SCH (11:12)
[2020-11-02] MEDS: CARVEDILOL 12.5 MG TABLET. PO SCH ×2 (11:13→17:15)
[2020-11-02] MEDS: FLUoxetine HCL 20 MG CAPSULE PO SCH (11:13)
[2020-11-02] MEDS: LIDOCAINE (700MG/PATCH) PATCH. TD SCH (11:14)
[2020-11-02] MEDS: CLOPIDOGREL BISULFATE 75 MG TABLET PO SCH (11:14)
[2020-11-02] MEDS: BENZONATATE 100 MG CAPSULE. PO SCH ×3 (11:14→21:16)
[2020-11-02] MEDS: CAPSAICIN 0.025% TOPICAL CREAM 60GM TUBE. TP SCH ×2 (11:16→21:00)
--- NOTE | 2020-11-02 11:25 | PDOC ---
[employer] PROGRESS NOTE Date of Service DOS: DATE: 11/02/20 TIME: 11:15 Chief Complaint Chief Complaint Chest pain CHF COPD Diabetes-Type II High Cholesterol Hypertension MT Chronic pain Neuropathy History of Present Illness History of Present Illness Patient is a 65-year-old female with past medical history of diabetes mellitus type 2, COPD on 2 to 3 L nasal cannula of home O2, CHF, hypertension, history of CABG x2 vessels in 2015, breast reduction who comes in with substernal chest pain that started last night. She also complains of associated shortness of breath. Most of her physicians that see her at [facility]. Denies fevers, abdominal pain, diarrhea, dysuria or palpitations or syncope. 11/02/2020 Patient was awake, alert and NAD Patient seen and examined in bed. D/W RN Chart review Discussed that we will continue to monitor patient while waiting for COVID-19 test results. Vitals/I&O Vitals/I&O: Vital Signs Date Time Temp Pulse Resp B/P (MAP) Pulse Ox O2 Delivery O2 Flow Rate FiO2 11/02/20 07:00 99.8 75 20 189/99 (129) 100 Nasal Cannula 3.0 99.8 I & O 11/01/20 11/01/20 11/02/20 15:00 23:00 07:00 Intake Total 480 ml Balance 480 ml Physical Exam General: Alert, Oriented X3, Cooperative Heart: Regular rate Lungs: Clear Abdomen: Normal bowel sounds Extremities: No clubbing Skin: No rashes Labs Labs: Laboratory Tests Test 11/01/20 16:00 11/01/20 16:17 11/01/20 18:30 11/01/20 20:46 White Blood Count 7.0 x10^3/uL (4.0-11.0) Red Blood Count 3.69 x10^6/uL (3.50-5.40) Hemoglobin 10.5 g/dL (12.0-15.5) Hematocrit 32.5 % (36.0-47.0) Mean Corpuscular Volume 88 fL (79-100) Mean Corpuscular Hemoglobin 29 pg (25-35) Mean Corpuscular Hemoglobin Concent 32 g/dL (31-37) Red Cell Distribution Width 15.1 % (11.5-14.5) Platelet Count 223 x10^3/uL (140-400) Neutrophils (%) (Auto) 81 % (31-73) Lymphocytes (%) (Auto) 11 % (24-48) Monocytes (%) (Auto) 7 % (0-9) Eosinophils (%) (Auto) 0 % (0-3) Basophils (%) (Auto) 1 % (0-3) Neutrophils # (Auto) 5.7 x10^3/uL (1.8-7.7) Lymphocytes # (Auto) 0.7 x10^3/uL (1.0-4.8) Monocytes # (Auto) 0.5 x10^3/uL (0.0-1.1) Eosinophils # (Auto) 0.0 x10^3/uL (0.0-0.7) Basophils # (Auto) 0.1 x10^3/uL (0.0-0.2) Sodium Level 142 mmol/L (136-145) Potassium Level 3.8 mmol/L (3.5-5.1) Chloride Level 102 mmol/L (98-107) Carbon Dioxide Level 36 mmol/L (21-32) Anion Gap 4 (6-14) Blood Urea Nitrogen 10 mg/dL (7-20) Creatinine 0.8 mg/dL (0.6-1.0) Estimated GFR (Cockcroft-Gault) 86.8 BUN/Creatinine Ratio 13 (6-20) Glucose Level 113 mg/dL (70-99) Calcium Level 9.5 mg/dL (8.5-10.1) Magnesium Level 2.0 mg/dL (1.8-2.4) Total Bilirubin 0.6 mg/dL (0.2-1.0) Aspartate Amino Transf (AST/SGOT) 22 U/L (15-37) Alanine Aminotransferase (ALT/SGPT) 19 U/L (14-59) Alkaline Phosphatase 80 U/L (46-116) Troponin I Quantitative < 0.017 ng/mL (0.000-0.055) < 0.017 ng/mL (0.000-0.055) IS-Vrt-E-Type Natriuretic Peptide 3289 pg/mL (0-124) Total Protein 7.1 g/dL (6.4-8.2) Albumin 3.2 g/dL (3.4-5.0) Albumin/Globulin Ratio 0.8 (1.0-1.7) Lipase 70 U/L (73-393) SARS-CoV-2 Antigen (Rapid) Negative (NEGATIVE) Glucose (Fingerstick) 95 mg/dL (70-99) Test 11/02/20 08:17 Glucose (Fingerstick) 134 mg/dL (70-99) Review of Systems Review of Systems: Denies numbness or tingling in extremities Denies SOB or cough Bowel and bladder continent Denies SMITH or diziness Denies N/V Assessment and Plan Assessmemt and Plan Chest pain concerning for unstable angina/NSTEMI versus STEMI Anemia of chronic disease Morbid obesity CHF COPD Diabetes-Type II High Cholesterol Hypertension MT Chronic pain Neuropathy Plan Probable discharge depending on the results of COVID-19 test. Restart home meds Serial Labs Serial EKG PT/OT Cardiac monitoring Maintain O2 sats between 88 to 95% DVT prophylaxis -Continue aspirin, consider Plavix if intermediate risk will defer this to cardiology IV Lasix diuresis x1 given today Troponin negative x2 Cardiology consulted for predischarge stress testing or left heart cath Continue nitroglycerin as needed for pain Continue beta-sybil if blood pressures allow Continue high intensity statins Continue pain medication PRN Full code Comment Review of Relevant I have reviewed the following items nolan (where applicable) has been applied. Medications: Current Medications Medications (Trade) Dose Ordered Sig/Susan Route PRN Reason Start Time Stop Time Status Last Admin Dose Admin Morphine Sulfate (Morphine Sulfate) 4 mg 1X ONCE IVP 11/01/20 15:45 11/01/20 15:46 DC 11/01/20 16:11 Ondansetron HCl (Zofran) 4 mg PRN Q6HRS PRN IVP NAUSEA/VOMITING 11/01/20 18:30 11/01/20 20:44 Acetaminophen (Tylenol) 650 mg PRN Q4HRS PRN PO TEMP OVER 100.4F OR MILD PAIN 11/01/20 18:30 11/01/20 23:27 Enoxaparin Sodium (Lovenox 40mg Syringe) 40 mg Q24H SQ 11/01/20 21:00 11/01/20 20:45 Morphine Sulfate (Morphine Sulfate) 2 mg PRN Q2HR PRN IVP SEVERE PAIN 7-10 11/01/20 18:30 11/02/20 18:29 11/02/20 04:10 Furosemide (Lasix) 40 mg 1X ONCE IVP 11/02/20 05:00 11/02/20 05:01 DC 11/02/20 06:12 Justifications for Admission Chest Pain Indications Serious Diagnosis?: Yes Justification for admission: Chest pain may be indicative of potentially serious diagnosis/diagnoses Please state condition(s) which will require inpatient level of care for further evaluation and management. Is patient at high risk?: Yes Justification for admission: Patient is high risk based on hemodynamic instability, CHF, abnormal EKG/ECG/cardiac biomarkers/physical exam findings in context of chest pain persisting despite parenteral analgesics & optimal anti-anginal therapy. Other Justification PERICO BUCHANAN III DO Nov 02, 2020 11:25
[2020-11-02] MEDS ORDERED: INSULIN LISPRO 100 UNIT/ML 3ML VIAL for OP,RR ONLY. SQ SCH (12:00)
--- NOTE | 2020-11-02 14:15 | NUR ---
SS following for discharge planning. SS reviewed pt chart and discussed with pt RN. Pt is from home and is currently requiring oxygen at three liters nasal canula. Pt has home oxygen. SS will continue to follow for discharge planning.
[2020-11-02 15:00] VITALS: BP 148/77
[2020-11-02] MEDS: clonazePAM 0.5 MG TABLET PO SCH ×2 (17:15→21:16)
[2020-11-02] MEDS: POTASSIUM CHLORIDE 20 MEQ TABLET.ER. PO SCH (17:15)
[2020-11-02] MEDS: oxyCODONE/APAP 10/325 1 TAB TABLET PO PRN ×2 (17:20→23:12)
[2020-11-02 19:43] VITALS: BP 116/39
[2020-11-02] MEDS ORDERED: PATCH REMOVAL. MC SCH (21:00)
[2020-11-02] MEDS ORDERED: traZODone 50 MG TABLET. PO SCH (21:00)
[2020-11-02] MEDS ORDERED: ATORVASTATIN CALCIUM 20 MG TABLET PO SCH (21:00)
[2020-11-02] MEDS ORDERED: INSULIN GLARGINE SYRINGE. SQ SCH (21:00)
[2020-11-02] MEDS: ENOXAPARIN 40 MG/0.4 ML SYRINGE. SQ SCH (21:16)
[2020-11-02] MEDS ORDERED: clonazePAM 0.5 MG TABLET ONE (22:00)
[2020-11-02 22:39] VITALS: BP 100/35
[2020-11-03 02:44] VITALS: BP 112/43
[2020-11-03] MEDS: oxyCODONE/APAP 10/325 1 TAB TABLET PO PRN ×2 (04:59→12:43)
[2020-11-03 06:14] VITALS: BP 119/63
[2020-11-03] MEDS: INSULIN LISPRO 300 UNITS/3 ML VIAL. SQ SCH ×4 (07:30→12:00)
[2020-11-03] MEDS: LIDOCAINE (700MG/PATCH) PATCH. TD SCH (08:36)
[2020-11-03] MEDS: PANTOPRAZOLE 40 MG TABLET.DR. PO SCH (08:37)
[2020-11-03] MEDS: clonazePAM 0.5 MG TABLET PO SCH ×2 (08:37→12:42)
[2020-11-03] MEDS: LACTOBACILLUS RHAMNOSUS GG 1 CAPSULE. PO SCH (08:37)
[2020-11-03] MEDS: SPIRONOLACTONE 25 MG TABLET PO SCH (08:37)
[2020-11-03] MEDS: BENZONATATE 100 MG CAPSULE. PO SCH ×2 (08:37→12:42)
[2020-11-03] MEDS: BUMETANIDE 1 MG TABLET. PO SCH (08:37)
[2020-11-03] MEDS: FLUoxetine HCL 20 MG CAPSULE PO SCH (08:37)
[2020-11-03] MEDS: LOSARTAN POTASSIUM 50 MG TABLET. PO SCH (08:37)
[2020-11-03] MEDS: CLOPIDOGREL BISULFATE 75 MG TABLET PO SCH (08:37)
[2020-11-03] MEDS: ISOSORBIDE MONONITRATE ER 30 MG TAB.ER.24H PO SCH (08:38)
[2020-11-03] MEDS: CARVEDILOL 12.5 MG TABLET. PO SCH (08:38)
[2020-11-03] MEDS: ASPIRIN ENTERIC COATED 81 MG TABLET.DR. PO SCH (08:38)
[2020-11-03] MEDS: CALCIUM CARB/VIT D3 500/200 TABLET. PO SCH (08:38)
[2020-11-03] MEDS: POTASSIUM CHLORIDE 20 MEQ TABLET.ER. PO SCH (08:43)
[2020-11-03] MEDS: CAPSAICIN 0.025% TOPICAL CREAM 60GM TUBE. TP SCH (08:44)
[2020-11-03 08:58] LABS: BASO # 0.1 x10^3/uL (0.0-0.2); BASO % 1 % (0-3); EOS # 0.1 x10^3/uL (0.0-0.7); EOS % 1 % (0-3); HEMATOCRIT 35.1 % (36.0-47.0); HEMOGLOBIN 11.3 g/dL (12.0-15.5); LYMPH # 1.1 x10^3/uL (1.0-4.8); LYMPH % 15 % (24-48); MEAN CORPUSCULAR HEMOGLOBIN 29 pg (25-35); MEAN CORPUSCULAR HGB CONC 32 g/dL (31-37); MEAN CORPUSCULAR VOLUME 90 fL (79-100); MONO # 0.5 x10^3/uL (0.0-1.1); MONO % 7 % (0-9); NEUT # 5.4 x10^3/uL (1.8-7.7); NEUT % 76 % (31-73); PLATELET COUNT 230 x10^3/uL (140-400); RED BLOOD COUNT 3.89 x10^6/uL (3.50-5.40); RED CELL DISTRIBUTION WIDTH 15.2 % (11.5-14.5); WHITE BLOOD COUNT 7.2 x10^3/uL (4.0-11.0)
[2020-11-03 09:31] LABS: ALBUMIN 3.4 g/dL (3.4-5.0); ALBUMIN/GLOBULIN RATIO 0.8 (1.0-1.7); CALCIUM 9.6 mg/dL (8.5-10.1); CREATININE 1.5 mg/dL (0.6-1.0); POTASSIUM 4.4 mmol/L (3.5-5.1); TOTAL BILIRUBIN 0.6 mg/dL (0.2-1.0); TOTAL PROTEIN 7.9 g/dL (6.4-8.2)
[2020-11-03 11:00] VITALS: BP 110/53
[2020-11-03] MEDS ORDERED: OXYC1TAB22 PO (11:11)
--- NOTE | 2020-11-03 11:13 | PDOC ---
[employer] PROGRESS NOTE Date of Service DOS: DATE: 11/03/20 TIME: 11:08 Chief Complaint Chief Complaint Chest pain CHF COPD Diabetes-Type II High Cholesterol Hypertension [place] Chronic pain Neuropathy History of Present Illness History of Present Illness Patient is a 65-year-old female with past medical history of diabetes mellitus type 2, COPD on 2 to 3 L nasal cannula of home O2, CHF, hypertension, history of CABG x2 vessels in 2015, breast reduction who comes in with substernal chest pain that started last night. She also complains of associated shortness of breath. Most of her physicians that see her at [facility]. Denies fevers, abdominal pain, diarrhea, dysuria or palpitations or syncope. 11/02/2020 Patient was awake, alert and NAD Patient seen and examined in bed. D/W RN Chart review Discussed that we will continue to monitor patient while waiting for COVID-19 test results. 11/03/2020 Patient was awake, alert and NAD Patient seen and examined in chair D/W RN Chart review Informed patient of negative COVID test and discussed discharge plans. Patient feels pain is being well controlled. All patient's questions were answered at this time. Vitals/I&O Vitals/I&O: Vital Signs Date Time Temp Pulse Resp B/P (MAP) Pulse Ox O2 Delivery O2 Flow Rate FiO2 11/03/20 08:38 65 11/03/20 08:20 Nasal Cannula 3.0 11/03/20 06:14 98.0 19 119/63 (81) 96 98.0 I & O 11/02/20 11/02/20 11/03/20 15:00 23:00 07:00 Intake Total 850 ml 600 ml 30 ml Output Total 1900 ml 1200 ml 300 ml Balance -1050 ml -600 ml -270 ml Physical Exam General: Alert, Oriented X3, Cooperative Heart: Regular rate Lungs: Clear Abdomen: Normal bowel sounds Extremities: No clubbing Skin: No rashes Labs Labs: Laboratory Tests Test 11/02/20 11:53 11/02/20 17:11 11/02/20 20:46 11/03/20 07:30 Glucose (Fingerstick) 170 mg/dL (70-99) 67 mg/dL (70-99) 162 mg/dL (70-99) 99 mg/dL (70-99) Test 8/13/21 08:45 White Blood Count 7.2 x10^3/uL (4.0-11.0) Red Blood Count 3.89 x10^6/uL (3.50-5.40) Hemoglobin 11.3 g/dL (12.0-15.5) Hematocrit 35.1 % (36.0-47.0) Mean Corpuscular Volume 90 fL (79-100) Mean Corpuscular Hemoglobin 29 pg (25-35) Mean Corpuscular Hemoglobin Concent 32 g/dL (31-37) Red Cell Distribution Width 15.2 % (11.5-14.5) Platelet Count 230 x10^3/uL (140-400) Neutrophils (%) (Auto) 76 % (31-73) Lymphocytes (%) (Auto) 15 % (24-48) Monocytes (%) (Auto) 7 % (0-9) Eosinophils (%) (Auto) 1 % (0-3) Basophils (%) (Auto) 1 % (0-3) Neutrophils # (Auto) 5.4 x10^3/uL (1.8-7.7) Lymphocytes # (Auto) 1.1 x10^3/uL (1.0-4.8) Monocytes # (Auto) 0.5 x10^3/uL (0.0-1.1) Eosinophils # (Auto) 0.1 x10^3/uL (0.0-0.7) Basophils # (Auto) 0.1 x10^3/uL (0.0-0.2) Sodium Level 140 mmol/L (136-145) Potassium Level 4.4 mmol/L (3.5-5.1) Chloride Level 97 mmol/L (98-107) Carbon Dioxide Level 43 mmol/L (21-32) Anion Gap 0 (6-14) Blood Urea Nitrogen 15 mg/dL (7-20) Creatinine 1.5 mg/dL (0.6-1.0) Estimated GFR (Cockcroft-Gault) 42.0 BUN/Creatinine Ratio 10 (6-20) Glucose Level 150 mg/dL (70-99) Calcium Level 9.6 mg/dL (8.5-10.1) Total Bilirubin 0.6 mg/dL (0.2-1.0) Aspartate Amino Transf (AST/SGOT) 15 U/L (15-37) Alanine Aminotransferase (ALT/SGPT) 16 U/L (14-59) Alkaline Phosphatase 86 U/L (46-116) Total Protein 7.9 g/dL (6.4-8.2) Albumin 3.4 g/dL (3.4-5.0) Albumin/Globulin Ratio 0.8 (1.0-1.7) Review of Systems Review of Systems: Denies SMITH or dizziness Denies fever or chill Bowel and bladder continent Assessment and Plan Assessmemt and Plan Chest pain concerning for unstable angina/NSTEMI versus STEMI Anemia of chronic disease Morbid obesity CHF COPD Diabetes-Type II High Cholesterol Hypertension [place] Chronic pain Neuropathy Plan Probable discharge home today Negative COVID-19 test Home meds Cardiac monitoring DVT prophylaxis Continue nitroglycerin as needed for pain Continue beta-sybil if blood pressures allow Continue high intensity statins Continue pain medication PRN Full code Comment Review of Relevant I have reviewed the following items nolan (where applicable) has been applied. Medications: Current Medications Medications (Trade) Dose Ordered Sig/Susan Route PRN Reason Start Time Stop Time Status Last Admin Dose Admin Atorvastatin Calcium (Lipitor) 20 mg HS PO 11/02/20 21:00 11/02/20 21:16 Capsaicin (Zostrix) 60 tre TID TP 11/02/20 14:00 11/03/20 08:44 Pantoprazole Sodium (Protonix) 40 mg DAILYAC PO 11/02/20 11:30 11/03/20 08:37 Potassium Chloride (Klor-Con) 20 meq BIDWMEALS PO 11/02/20 17:00 11/03/20 08:43 Trazodone HCl (Desyrel) 50 mg HS PO 11/02/20 21:00 11/02/20 21:16 Miscellaneous (Lidoderm Patch Removal) 1 ea QHS MC 11/02/20 21:00 11/02/20 21:00 Carvedilol (Coreg) 12.5 mg BIDWMEALS PO 11/02/20 12:00 11/03/20 08:38 Clonazepam (KlonoPIN) 0.5 mg TID PO 11/02/20 14:00 11/03/20 08:37 Insulin Glargine (Lantus Syringe) 8 unit QHS SQ 11/02/20 21:00 11/02/20 23:14 Insulin Human Lispro (HumaLOG) 8 units TIDAC SQ 11/02/20 12:00 11/02/20 12:57 Oxycodone/ Acetaminophen (Percocet 10/325) 2 tab PRN Q6HRS PRN PO MODERATE TO SEVERE PAIN 11/02/20 16:45 11/03/20 04:59 Justifications for Admission Chest Pain Indications Serious Diagnosis?: Yes Justification for admission: Chest pain may be indicative of potentially serious diagnosis/diagnoses Please state condition(s) which will require inpatient level of care for further evaluation and management. Is patient at high risk?: Yes Justification for admission: Patient is high risk based on hemodynamic instability, CHF, abnormal EKG/ECG/cardiac biomarkers/physical exam findings in context of chest pain persisting despite parenteral analgesics & optimal anti-anginal therapy. Other Justification PERICO BUCHANAN III DO Nov 03, 2020 11:13
--- NOTE | 2020-11-03 11:13 | SNU/HH DC ---
DISCHARGE WITH HOME HEALTH DISCHARGE INFORMATION: Final Diagnosis: Problems Medical Problems: (1) Chest pain Status: Acute Condition on Discharge: Stable CODE STATUS: Code Status: Full HOME HEALTH: Face to Face: I certify this patient is under my care and that I, or a nurse practitioner or physician's inventory assistant working with me, had a face to face encounter that meets the physician face to face encounter requirements with this patient on []. Medical Complications: CHF Long Term For: Assess Cardiopulm Status RN For Eval/Treatment: Yes Physical Therapy For: Evalulation/Treatment Occupational Therapy For: Evaluation/Treatment Home Health Aide For: Self-care [employer]LE [employer]VER For: Community Resources Pt Meets Homebound Status: Unsteady balance w/ amb, POST DISCHARGE ORDERS: Activity Instructions for Disc: Resume previous activity, Activity as tolerated Weight Bearing Status after Di: As tolerated Bathing Instructions: No Tub Bath until see Dr. DOW AFTER DISCHARGE: Cardiac Wound/Incision Care: Ice to area for comfort CHECKS AFTER DISCHARGE: Checks after discharge: Check blood press - daily, Check blood sugar, ac/hs, Weigh Yourself Daily TREATMENT/EQUIPMENT ORDERS: Adaptive Equipment Issued: None Discharge Respiratory Equipmen: Oxygen, Nebulizer CERTIFICATION STATEMENT: Certification Statement: Certification Statement: Based on the above finding, I certify that this patient is confined to the home and needs intermittent prison care, physical therapy and/or speech therapy, or continues to need occupational therapy.~ This patient is under my care, and I have initiated the establishment of the plan of care.~ This patient will be followed by myself or a community physician who will periodically review the plan of care. Home Meds Active Scripts Oxycodone/Apap 10-325 (PERCOCET 10-325 MG TABLET ) 1 Each Tablet, 2 TAB PO PRN Q6HRS PRN for MODERATE TO SEVERE PAIN for 10 Days, #30 TAB Prov:CASTLE,NIAL K III DO 11/03/20 Lactobacillus Rhamnosus Gg (CULTURELLE) 1 Each Cap.sprink, 1 CAP PO BID for SUPPLEMENT for 30 Days, #60 CAP Prov:JHON ZAPIEN MD 06/02/20 Docusate Sodium (DOK) 100 Mg Capsule, 100 MG PO PRN DAILY PRN for HARD STOOLS for 30 Days, #30 CAP Prov:JHON ZAPIEN MD 06/02/20 Lidocaine (Lidocaine PATCH ) 1 Each Adh..patch, 1 PATCH TD DAILY for BACK PAIN for 30 Days, #30 PATCH Prov:JHON ZAPIEN MD 03/07/20 Insulin Lispro (Admelog) 100 Unit/1 Ml Vial, 0 UNITS SQ TIDWMEALS for DIABETES for 30 Days, #2 EACH Prov:JHON ZAPIEN MD 03/07/20 Guaifenesin/Dextromethorphan (GUAIFENESIN DM SYRUP) 5 Ml Syrup, 10 ML PO PRN Q6HRS PRN for COUGH for 14 Days, #240 MISC Prov:JHON ZAPIEN MD 03/07/20 Benzonatate (BENZONATATE) 100 Mg Capsule, 100 MG PO AHS312 for COUGH for 14 Days, #60 CAP Prov:JHON ZAPIEN MD 03/07/20 Pantoprazole Sodium (PROTONIX ) 40 Mg Tablet.dr, 40 MG PO DAILYAC for GERD for 60 Days, #60 TAB Prov:CATHIE KNIGHT MD 01/29/19 Reported Medications Albuterol Sulfate (VENTOLIN HFA INHALER) 18 Gm Hfa.aer.ad, 2 PUFF INH [id number] for FOR ASTHMA, INHALER 0 Refills 01/08/20 Clonazepam (CLONAZEPAM) 1 Mg Tablet, 0.5 MG PO TID for FOR ANXIETY, TAB 01/08/20 Bumetanide (BUMETANIDE) 2 Mg Tablet, 2 MG PO BID for DIURETIC, TAB 01/08/20 Trazodone Hcl (TRAZODONE HCL) 50 Mg Tablet, 50 MG PO HS for DEPRESSION, SLEEP, TAB 01/08/20 Spironolactone (SPIRONOLACTONE) 50 Mg Tablet, 50 MG PO HS for HEART, TAB 01/08/20 Potassium Chloride (POTASSIUM CHLORIDE ) 20 Meq Tablet.er, 20 MEQ PO BIDWMEALS for SUPPLEMENT, TAB.SR 01/08/20 Oxycodone/Apap 10-325 (PERCOCET 10-325 MG TABLET ) 1 Each Tablet, 1 TAB PO PRN Q6HRS PRN for PAIN, TAB 0 Refills 01/08/20 Carvedilol (CARVEDILOL) 25 Mg Tablet, 12.5 MG PO BIDWMEALS for CARDIAC, TAB 01/08/20 Insulin Glargine,Hum.rec.anlog (LANTUS SOLOSTAR) 100 Unit/1 Ml Insuln.pen, 8 UNIT SQ QHS for diabetes, #15 ML 3 Refills 01/08/20 Isosorbide Mononitrate (ISOSORBIDE MONONITRATE ER) 30 Mg Tab.er.24h, 30 MG PO DAILY for hypertension, TAB.SR 01/08/20 Clopidogrel Bisulfate (CLOPIDOGREL) 75 Mg Tablet, 75 MG PO DAILY for TO PREVENT BLOOD CLOTS, #30 TAB 0 Refills 10/10/19 Losartan Potassium (LOSARTAN POTASSIUM) 100 Mg Tablet, 100 MG PO DAILY for HYPERTENSION, TAB 10/10/19 Capsaicin (CAPSAICIN) 60 Gm Cream..g., 60 GM TP TID for , EACH apply to morgan feet 07/14/18 Calcium Carbonate/Vitamin D3 (CALCIUM 500 + VIT D 200 CAPLET) 1 Each Tablet, 1 EACH PO DAILY for supplement, TAB 05/16/18 Fluoxetine Hcl (FLUOXETINE HCL) 20 Mg Capsule, 1 CAP PO DAILY for anti- depressent, #90 CAP 1 Refill 05/16/18 Nitroglycerin (NITROGLYCERIN SubLingual) 0.4 Mg Tab.subl, 0.4 MG SL PRN Q5MIN PRN for CHEST PAIN, BOTTLE 11/01/16 Atorvastatin Calcium (ATORVASTATIN CALCIUM) 20 Mg Tablet, 20 MG PO HS for FOR CHOLESTEROL, #30 TAB 0 Refills 10/28/16 Aspirin (ASPIR 81) 81 Mg Tablet., 1 TAB PO DAILY, #30 TAB 5 Refills 10/28/16 PERICO BUCHANAN III DO Nov 03, 2020 11:13
--- NOTE | 2020-11-03 12:21 | DS ---
DATE OF DISCHARGE: 11/03/2020 ADMISSION DIAGNOSIS: Chest pain. DISCHARGE DIAGNOSES: Atypical chest pain, resolving history of coronary artery disease, depression, anxiety, congestive heart failure, chronic obstructive pulmonary disease, diabetes, hyperlipidemia, hypertension, myocardial infarction, neuropathy, appendectomy, cholecystectomy, hysterectomy, knee replacement, hernia repair, breast reduction. HOSPITAL COURSE: The patient is a pleasant, middle-aged female well known to our service. She was admitted once again with chest pain. We will rule out myocardial infarction by checking serial enzymes, serial EKGs and doing cardiac monitoring. Today, I saw and examined her. She is at her baseline. We plan to discharge home. DISPOSITION: Home. ACTIVITY: As tolerated. DIET: Low sodium. DISCHARGE MEDICATIONS: Please see the MRAD. They are albuterol, oxycodone 10 mg two tabs q.4, aspirin 81, atorvastatin 20, benzonatate 100 q.8 hours p.r.n., calcium, capsaicin, Coreg 12.5 b.i.d., clonazepam 0.5 mg t.i.d., Plavix 75 a day, Docusate, fluoxetine 20 a day, insulin 8 units at bedtime and sliding scale with meals, Imdur 30 a day, lactobacillus, lidocaine patches, losartan 100, p.r.n. nitro, Protonix 40 a day, potassium 20 a day, Aldactone 50 a day and trazodone 50 at bedtime. TOTAL TIME: [address]: AHMET/amrik TID: [id number]
[2020-11-03] MEDS ORDERED: clonazePAM 0.5 MG TABLET ONE (13:00)
--- NOTE | 2020-11-03 13:48 | NUR ---
SS following up with discharge planning. SS reviewed pt chart and discussed with pt RN. Pt is currently requiring oxygen at three liters nasal canula. Pt has home oxygen. COVID19 negative. Discharge order on the chart for home with self care.
[2020-11-03 15:00] VITALS: BP 89/42
--- NOTE | 2020-11-03 18:10 | NUR ---
Discharge: Teaching verbal and written. 1 prescription sent to pharmacy by physician. All belongings with patient. IV removed without complications. Patient assisted off of unit via wheelchair accompanied by RN.
== END 2020-11-03 18:12 | disposition home or self-care (01) ==
LOC: ER 14:59 → ED HOLD 17:20 → ER 19:27 → 6 SOUTH 19:30
PROVIDERS: ADMIT Internal Medicine; ATTEND Internal Medicine
DX: R07.89 Other chest pain (principal); E11.40 Type 2 diabetes mellitus with diabetic neuropathy, unspecified; E44.0 Moderate protein-calorie malnutrition; E66.01 Morbid (severe) obesity due to excess calories; Z20.822 Contact with and (suspected) exposure to COVID-19; E78.00 Pure hypercholesterolemia, unspecified; E78.5 Hyperlipidemia, unspecified; I11.0 Hypertensive heart disease with heart failure; I50.9 Heart failure, unspecified; J44.9 Chronic obstructive pulmonary disease, unspecified; I25.2 Old myocardial infarction; G89.29 Other chronic pain; I25.10 Atherosclerotic heart disease of native coronary artery without angina pectoris; Z90.49 Acquired absence of other specified parts of digestive tract; Z90.710 Acquired absence of both cervix and uterus; Z95.0 Presence of cardiac pacemaker; Z95.1 Presence of aortocoronary bypass graft; Z96.659 Presence of unspecified artificial knee joint
CPT/HCPCS: 36415; 71045; 80053; 82962; 83690; 83735; 83880; 84484; 85025; 87426; 93005; 96372; 96374; 96375; 96376; 99285; G0378; J1650; J1815; J1940; J2270; J2405; U0003; U0005; G0379

== ENCOUNTER 2020-11-27 15:57 | Observation (INO) | payer MEDICARE, MEDICAID ==
[~2020-11-27] VITALS: Ht 162.6 cm; Wt 98.6 kg
--- NOTE | 2020-11-27 16:25 | PHYS DOC ---
Past Medical History Past Medical History: CHF, COPD, Diabetes-Type II, High Cholesterol, Hype rtension, UT, Other Additional Past Medical Histor: O2 @ 2-3 L , chronic pain, NEUROPATHY Past Surgical History: Appendectomy, Cholecystectomy, Coronary Bypass Surgery, Hysterectomy, Knee Replacement, Other Additional Past Surgical Histo: HERNIA REPAIR, CABG X 2 VESSELS 2015; breast reduction; L knee Smoking Status: Never Smoker Alcohol Use: None Drug Use: None General Adult EDM: Chief Complaint: CHEST PAIN HPI: HPI: Patient is a 65 year old female who present to ER due to chest pain intermittently started last night. Patient has history of hypertension, diabetes, CHF, coronary artery disease. Patient denies any cough or fever. Patient has been evaluated here multiple times in the past for the same problem. Patient denies abdominal pain, no nausea vomiting. All patient's doctors are at [facility]. Review of Systems: Review of Systems: Constitutional: Denies fever or chills. [] Eyes: Denies change in visual acuity. [] HENT: Denies nasal congestion or sore throat. [] Respiratory: Denies cough or shortness of breath. [] Cardiovascular: Positive for chest pain, positive for edema. GI: Denies abdominal pain, nausea, vomiting, bloody stools or diarrhea. [] : Denies dysuria. [] Musculoskeletal: Denies back pain or joint pain. [] Integument: Denies rash. [] Neurologic: Denies headache, focal weakness or sensory changes. [] Endocrine: Denies polyuria or polydipsia. [] Lymphatic: Denies swollen glands. [] Psychiatric: Denies depression or anxiety. [] Heart Score: C/O Chest Pain: Yes HEART Score for Chest Pain: HEART Score for Chest Pain Response (Comments) Value History Moderately Suspicious 1 ECG Nonspecific Repolarizatio 1 Age > 65 2 Risk Factors >3 Risk Factors or Hx CAD 2 Troponin < Normal Limit 0 Total 6 Risk Factors: Risk Factors: DM, Current or recent (<one month) smoker, HTN, HLP, family history of CAD, obesity. Risk Scores: Score 0 - 3: 2.5% MACE over next 6 weeks - Discharge Home Score 4 - 6: 20.3% MACE over next 6 weeks - Admit for Clinical Observation Score 7 - 10: 72.7% MACE over next 6 weeks - Early Invasive Strategies Allergies: Allergies: Allergies Coded Allergies Type Severity Reaction Last Updated Verified No Known Drug Allergies 11/01/20 No Physical Exam: PE: Constitutional: Well developed, well nourished, no acute distress, non-toxic appearance. [] HENT: Normocephalic, atraumatic, bilateral external ears normal, oropharynx moist, no oral exudates, nose normal. [] Eyes: PERRLA, EOMI, conjunctiva normal, no discharge. [] Neck: Normal range of motion, no tenderness, supple, no stridor. [] Cardiovascular:Heart rate regular rhythm, mild systolic murmur [] Lungs & Thorax: Bilateral breath sounds with rales to auscultation [] Abdomen: Bowel sounds normal, soft, no tenderness, no masses, no pulsatile nicci s. [] Skin: Warm, dry, no erythema, no rash. [] Back: No tenderness, no CVA tenderness. [] Extremities: No tenderness, no cyanosis, no clubbing, ROM intact, mild pitting edema in lower extremities] Neurologic: Alert and oriented X 3, normal motor function, normal sensory function, no focal deficits noted. [] Psychologic: Affect normal, judgement normal, mood normal. [] Current Patient Data: Labs: Laboratory Tests Test 11/27/20 17:15 11/27/20 17:17 White Blood Count 8.2 x10^3/uL Red Blood Count 4.09 x10^6/uL Hemoglobin 11.8 g/dL Hematocrit 35.6 % Mean Corpuscular Volume 87 fL Mean Corpuscular Hemoglobin 29 pg Mean Corpuscular Hemoglobin Concent 33 g/dL Red Cell Distribution Width 15.1 % Platelet Count 283 x10^3/uL Neutrophils (%) (Auto) 78 % Lymphocytes (%) (Auto) 12 % Monocytes (%) (Auto) 8 % Eosinophils (%) (Auto) 1 % Basophils (%) (Auto) 1 % Neutrophils # (Auto) 6.4 x10^3/uL Lymphocytes # (Auto) 1.0 x10^3/uL Monocytes # (Auto) 0.7 x10^3/uL Eosinophils # (Auto) 0.0 x10^3/uL Basophils # (Auto) 0.1 x10^3/uL Sodium Level 139 mmol/L Potassium Level 4.3 mmol/L Chloride Level 102 mmol/L Carbon Dioxide Level 33 mmol/L Anion Gap 4 Blood Urea Nitrogen 17 mg/dL Creatinine 0.9 mg/dL Estimated GFR (Cockcroft-Gault) 75.8 BUN/Creatinine Ratio 19 Glucose Level 97 mg/dL Calcium Level 9.7 mg/dL Total Bilirubin 0.4 mg/dL Aspartate Amino Transf (AST/SGOT) 9 U/L Alanine Aminotransferase (ALT/SGPT) 17 U/L Alkaline Phosphatase 81 U/L Troponin I Quantitative < 0.017 ng/mL QT-Nud-G-Type Natriuretic Peptide 1710 pg/mL Total Protein 7.7 g/dL Albumin 3.6 g/dL Albumin/Globulin Ratio 0.9 Lipase 78 U/L SARS-CoV-2 Antigen (Rapid) Negative Current Medications Medications (Trade) Dose Ordered Sig/Susan Route PRN Reason Start Time Stop Time Status Last Admin Dose Admin Nitroglycerin (Nitrostat) 0.4 mg PRN Q5MIN PRN SL CHEST PAIN 11/27/20 17:45 Morphine Sulfate (Morphine Sulfate) 4 mg 1X ONCE IVP 11/27/20 17:45 11/27/20 17:48 DC Aspirin (Aspirin Chewable) 324 mg 1X ONCE PO 11/27/20 18:00 11/27/20 18:01 Hydralazine HCl (Apresoline Inj) 10 mg 1X ONCE IVP 11/27/20 18:00 11/27/20 18:01 UNV Ondansetron HCl (Zofran) 4 mg PRN Q8HRS PRN IVP NAUSEA/VOMITING 11/27/20 18:00 11/28/20 17:59 UNV Vital Signs: Vital Signs Date Time Temp Pulse Resp B/P (MAP) Pulse Ox O2 Delivery O2 Flow Rate FiO2 11/27/20 16:10 98.7 80 34 235/100 (58) 95 Room Air 98.7 EKG: EKG: EKG was done at 1606, heart rate of 83 bpm, sinus rhythm, no ST segment elevati on, right axis deviation, Radiology/Procedures: Radiology/Procedures: [facility] [address] [place], [place] [id number] IMAGING REPORT Signed PATIENT: GRETCHEN BONILLA EACCOUNT: [id number] : 1955 LOCATION: ER AGE: 65 SEX: F EXAM STATUS: REG ER ORD. PHYSICIAN: ANDREW RUCKER DO REASON: CHEST PAIN PROCEDURE: PORTABLE CHEST 1V Exam: Chest one view INDICATION: Chest pain TECHNIQUE: Frontal view of the chest Comparisons: 11/01/2020 FINDINGS: Sternotomy wires are noted. There is a pacer with leads terminating the right heart. Heart is enlarged. Pulmonary vessels are prominent. The lung and pleural spaces are clear. IMPRESSION: Stable marked cardiomegaly with mild pulmonary vascular congestion Electronically signed by: Kunal Harris MD (11/27/2020 5:45 PM) [facility] DICTATED and SIGNED BY: KUNAL HARRIS MD DATE: 11/27/20 [id number] 0 Course & Med Decision Making: Course & Med Decision Making Pertinent Labs and Imaging studies reviewed. (See chart for details) Patient is a 65-year-old female who present to ER due to chest pain since yesterday. Patient has history of coronary artery disease, her work-up somewhat did not show any acute problem. Because of risk factors patient will be admitted to hospital for further evaluation and treatment. Dragon Disclaimer: Dragon Disclaimer: This electronic medical record was generated, in whole or in part, using a voice recognition dictation system. Departure Departure Impression: Primary Impression: Chest pain Additional Impression: HTN (hypertension) Disposition: ADMITTED INPATIENT Admitting Physician: [facility] (Dr. Chowdhury) Condition: STABLE Referrals: NO PCP (PCP) ANDREW RUCKER DO Nov 27, 2020 16:25
--- NOTE | 2020-11-27 16:43 | EKG ---
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
[2020-11-27 17:24] LABS: BASO # 0.1 x10^3/uL (0.0-0.2); BASO % 1 % (0-3); EOS % 1 % (0-3); HEMATOCRIT 35.6 % (36.0-47.0); HEMOGLOBIN 11.8 g/dL (12.0-15.5); LYMPH % 12 % (24-48); MEAN CORPUSCULAR HEMOGLOBIN 29 pg (25-35); MEAN CORPUSCULAR HGB CONC 33 g/dL (31-37); MEAN CORPUSCULAR VOLUME 87 fL (79-100); MONO # 0.7 x10^3/uL (0.0-1.1); MONO % 8 % (0-9); NEUT # 6.4 x10^3/uL (1.8-7.7); NEUT % 78 % (31-73); PLATELET COUNT 283 x10^3/uL (140-400); RED BLOOD COUNT 4.09 x10^6/uL (3.50-5.40); RED CELL DISTRIBUTION WIDTH 15.1 % (11.5-14.5); WHITE BLOOD COUNT 8.2 x10^3/uL (4.0-11.0)
[2020-11-27 17:37] LABS: CALCIUM 9.7 mg/dL (8.5-10.1); CREATININE 0.9 mg/dL (0.6-1.0); GFR 75.8; POTASSIUM 4.3 mmol/L (3.5-5.1)
[2020-11-27 17:42] LABS: ALBUMIN 3.6 g/dL (3.4-5.0); ALBUMIN/GLOBULIN RATIO 0.9 (1.0-1.7); TOTAL BILIRUBIN 0.4 mg/dL (0.2-1.0); TOTAL PROTEIN 7.7 g/dL (6.4-8.2)
[2020-11-27] MEDS ORDERED: NITROGLYCERIN SUBLINGUAL 0.4 MG BOTTLE OF 25. SL PRN ×2 (17:45→18:00)
[2020-11-27] MEDS ORDERED: MORPHINE SULFATE 4 MG/ML INJ. IVP ONE ×2 (17:45→18:15)
--- NOTE | 2020-11-27 17:48 | RAD ---
Exam: Chest one view INDICATION: Chest pain TECHNIQUE: Frontal view of the chest Comparisons: 11/01/2020 FINDINGS: Sternotomy wires are noted. There is a pacer with leads terminating the right heart. Heart is enlarged. Pulmonary vessels are prominent. The lung and pleural spaces are clear. IMPRESSION: Stable marked cardiomegaly with mild pulmonary vascular congestion Electronically signed by: Kunal Fu MD (11/27/2020 5:45 PM) [facility]
[2020-11-27] MEDS ORDERED: hydrALAZINE 20 MG/ML VIAL. IVP ONE (18:00)
[2020-11-27] MEDS ORDERED: ASPIRIN CHEWABLE 81 MG TABLET. PO ONE (18:00)
[2020-11-27] MEDS ORDERED: ONDANSETRON PF 4 MG/2 ML VIAL. IVP PRN ×2 (18:00→18:30)
--- NOTE | 2020-11-27 18:01 | PDOC1 ---
History and Physical Date of Service: DOS: DATE: 11/27/20 TIME: 18:00 Chief Complaint: Problems: (1) Nonspecific chest pain Chief Complain: Chest pain History of Present Illness: HPI: Patient is a 65-year-old female with past medical history of diabetes mellitus type 2, COPD on 2 to 3 L nasal cannula of home O2, CHF, hypertension, history of CABG x2 vessels in 2014, breast reduction who comes in with substernal chest pain that started last night. Patient presents to the emergency room frequently with similar complaints and negative work-up overall. She is well-known to multiple services. She also complains of associated shortness of breath. Most of her physicians that see her at [facility]. Denies fevers, abdominal pain, diarrhea, dysuria or palpitations or syncope. Patient also very hypertensive in emergency room. Patient reports compliance with her medications. Past Medical/Surgical History: PMH/PSH: CHF, COPD, Diabetes-Type II, High Cholesterol, Hypertension, [place], O2 @ 2-3 L , chronic pain, NEUROPATHY, Appendectomy, Cholecystectomy, Coronary Bypass Surgery, Hysterectomy, Knee Replacement, HERNIA REPAIR, CABG X 2 VESSELS 2014; breast reduction; L knee Allergies: Allergies: Coded Allergies: No Known Drug Allergies (Unverified , 11/01/20) Family History: Family History: Noncontributory Social History: Social History: Denies alcohol tobacco or drug use Current Medications: Current Medications Current Medications Nitroglycerin (Nitrostat) 0.4 mg PRN Q5MIN PRN SL CHEST PAIN; Start 11/27/20 at 17:45 Morphine Sulfate (Morphine Sulfate) 4 mg 1X ONCE IVP ; Start 11/27/20 at 17:45; Stop 11/27/20 at 17:48; Status DC Aspirin (Aspirin Chewable) 324 mg 1X ONCE PO ; Start 11/27/20 at 18:00; Stop 11/27/20 at 18:01 Hydralazine HCl (Apresoline Inj) 10 mg 1X ONCE IVP ; Start 11/27/20 at 18:00; Stop 11/27/20 at 18:01; Status UNV Ondansetron HCl (Zofran) 4 mg PRN Q8HRS PRN IVP NAUSEA/VOMITING; Start 11/27/20 at 18:00; Stop 11/28/20 at 17:59; Status UNV Aspirin (Ecotrin) 81 mg DAILY PO ; Start 11/28/20 at 09:00; Status UNV Atorvastatin Calcium (Lipitor) 20 mg HS PO ; Start 11/27/20 at 21:00; Status UNV Clopidogrel Bisulfate (Plavix) 75 mg DAILY PO ; Start 11/28/20 at 09:00; Status UNV Fluoxetine HCl (PROzac) 20 mg DAILY PO ; Start 11/28/20 at 09:00; Status UNV Isosorbide Mononitrate (Imdur) 30 mg DAILY PO ; Start 11/28/20 at 09:00; Status UNV Lactobacillus Rhamnosus (Culturelle) 1 cap BID PO ; Start 11/27/20 at 21:00; Status UNV Nitroglycerin (Nitrostat) 0.4 mg PRN Q5MIN PRN SL CHEST PAIN; Start 11/27/20 at 18:00; Status UNV Pantoprazole Sodium (Protonix) 40 mg DAILYAC PO ; Start 11/28/20 at 07:30; Status UNV Trazodone HCl (Desyrel) 50 mg HS PO ; Start 11/27/20 at 21:00; Status UNV Non-Formulary Medication (Bumetanide ) 2 mg BID PO ; Start 11/27/20 at 21:00; Status UNV Non-Formulary Medication (Carvedilol ) 12.5 mg BIDWMEALS PO ; Start 11/28/20 at 08:00; Status UNV Non-Formulary Medication (Losartan Potassium ) 100 mg DAILY PO ; Start 11/28/20 at 09:00; Status UNV Non-Formulary Medication (Spironolactone ) 50 mg HS PO ; Start 11/27/20 at 21:00; Status UNV Active Scripts Active Percocet 10-325 Mg Tablet (Oxycodone/Acetaminophen) 1 Each Tablet 2 Tab PO PRN Q6HRS PRN 10 Days Culturelle (Lactobacillus Rhamnosus Gg) 1 Each Cap.sprink 1 Cap PO BID 30 Days Dok (Docusate Sodium) 100 Mg Capsule 100 Mg PO PRN DAILY PRN 30 Days Lidocaine PATCH (Lidocaine) 1 Each Adh..patch 1 Patch TD DAILY 30 Days Admelog (Insulin Lispro) 100 Unit/1 Ml Vial 0 Units SQ TIDWMEALS 30 Days Guaifenesin Dm Syrup (Guaifenesin/Dextromethorphan) 5 Ml Syrup 10 Ml PO PRN Q6HRS PRN 14 Days Benzonatate 100 Mg Capsule 100 Mg PO [id number] 14 Days Protonix (Pantoprazole Sodium) 40 Mg Tablet.dr 40 Mg PO DAILYAC 60 Days Reported Ventolin Hfa Inhaler (Albuterol Sulfate) 18 Gm Hfa.aer.ad 2 Puff INH [id number] Clonazepam 1 Mg Tablet 0.5 Mg PO TID Bumetanide 2 Mg Tablet 2 Mg PO BID Trazodone Hcl 50 Mg Tablet 50 Mg PO HS Spironolactone 50 Mg Tablet 50 Mg PO HS Potassium Chloride (Potassium Chloride) 20 Meq Tablet.er 20 Meq PO BIDWMEALS Percocet 10-325 Mg Tablet (Oxycodone/Acetaminophen) 1 Each Tablet 1 Tab PO PRN Q6HRS PRN Carvedilol 25 Mg Tablet 12.5 Mg PO BIDWMEALS Lantus Solostar (Insulin Glargine,Hum.rec.anlog) 100 Unit/1 Ml Insuln.pen 8 Unit SQ QHS Isosorbide Mononitrate Er (Isosorbide Mononitrate) 30 Mg Tab.er.24h 30 Mg PO DAILY Clopidogrel (Clopidogrel Bisulfate) 75 Mg Tablet 75 Mg PO DAILY Losartan Potassium 100 Mg Tablet 100 Mg PO DAILY Capsaicin 60 Gm Cream..g. 60 Gm TP TID apply to morgan feet Calcium 500 + Vit D 200 Caplet (Calcium Carbonate/Vitamin D3) 1 Each Tablet 1 Each PO DAILY Fluoxetine Hcl 20 Mg Capsule 1 Cap PO DAILY NITROGLYCERIN SubLingual (Nitroglycerin) 0.4 Mg Tab.subl 0.4 Mg SL PRN Q5MIN PRN Atorvastatin Calcium 20 Mg Tablet 20 Mg PO HS Aspir 81 (Aspirin) 81 Mg Tablet.dr 1 Tab PO DAILY ROS: Review of Systems Review of System Negative unless noted in HPI Physical Exam: Vital Signs: Vital Signs Date Time Temp Pulse Resp B/P (MAP) Pulse Ox O2 Delivery O2 Flow Rate FiO2 11/27/20 16:10 98.7 80 34 235/100 (58) 95 Room Air 98.7 Physcial Exam: GEN: No apparent distress. Alert and oriented HEENT: Normal cephalic, atraumatic, external auditory canals are patent EYES: Extraocular muscles are intact, pupil are equally round and reactive to light and accommodation MUSCULOSKELETAL: Well developed , well nourished, good range of motion ENDOCRINE: No thyromegaly was palpated LYMPHATICS: No cervical chain or axillary nodes were noted HEMATOPOIETIC: No bruising NECK: Supple, no JVD, no thyromegaly was noted LUNGS: Clear to auscultation in all lung tripp without rhonchi or wheezing HEART: RRR, S!, S2 present. Peripheral pulses intact, no obvious murmurs noted ABDOMEN: Soft, nontender. Positive bowel sounds, no organomegaly, normal bowel sounds EXTREMITIES: Without clubbing, cyanosis, or edema. Pedal pulses intact. NEUROLOGIC: Normal speech and tone. A&O x 3, moves all extremities, no obvious focal deficits PSYCHIATRIC: Normal affect, normal mood. Stable SKIN: No ulcerations or rashes, good skin turgor, no jaundice VASCULAR: Good capillary refill, neurovascular bundle appears to be intact Labs: Labs: Laboratory Tests Test 11/27/20 17:15 11/27/20 17:17 White Blood Count 8.2 x10^3/uL (4.0-11.0) Red Blood Count 4.09 x10^6/uL (3.50-5.40) Hemoglobin 11.8 g/dL (12.0-15.5) Hematocrit 35.6 % (36.0-47.0) Mean Corpuscular Volume 87 fL (79-100) Mean Corpuscular Hemoglobin 29 pg (25-35) Mean Corpuscular Hemoglobin Concent 33 g/dL (31-37) Red Cell Distribution Width 15.1 % (11.5-14.5) Platelet Count 283 x10^3/uL (140-400) Neutrophils (%) (Auto) 78 % (31-73) Lymphocytes (%) (Auto) 12 % (24-48) Monocytes (%) (Auto) 8 % (0-9) Eosinophils (%) (Auto) 1 % (0-3) Basophils (%) (Auto) 1 % (0-3) Neutrophils # (Auto) 6.4 x10^3/uL (1.8-7.7) Lymphocytes # (Auto) 1.0 x10^3/uL (1.0-4.8) Monocytes # (Auto) 0.7 x10^3/uL (0.0-1.1) Eosinophils # (Auto) 0.0 x10^3/uL (0.0-0.7) Basophils # (Auto) 0.1 x10^3/uL (0.0-0.2) Sodium Level 139 mmol/L (136-145) Potassium Level 4.3 mmol/L (3.5-5.1) Chloride Level 102 mmol/L (98-107) Carbon Dioxide Level 33 mmol/L (21-32) Anion Gap 4 (6-14) Blood Urea Nitrogen 17 mg/dL (7-20) Creatinine 0.9 mg/dL (0.6-1.0) Estimated GFR (Cockcroft-Gault) 75.8 BUN/Creatinine Ratio 19 (6-20) Glucose Level 97 mg/dL (70-99) Calcium Level 9.7 mg/dL (8.5-10.1) Total Bilirubin 0.4 mg/dL (0.2-1.0) Aspartate Amino Transf (AST/SGOT) 9 U/L (15-37) Alanine Aminotransferase (ALT/SGPT) 17 U/L (14-59) Alkaline Phosphatase 81 U/L (46-116) Troponin I Quantitative < 0.017 ng/mL (0.000-0.055) KX-Say-G-Type Natriuretic Peptide 1710 pg/mL (0-124) Total Protein 7.7 g/dL (6.4-8.2) Albumin 3.6 g/dL (3.4-5.0) Albumin/Globulin Ratio 0.9 (1.0-1.7) Lipase 78 U/L (73-393) SARS-CoV-2 Antigen (Rapid) Negative (NEGATIVE) Laboratory Tests Test 11/27/20 17:15 11/27/20 17:17 White Blood Count 8.2 x10^3/uL (4.0-11.0) Red Blood Count 4.09 x10^6/uL (3.50-5.40) Hemoglobin 11.8 g/dL (12.0-15.5) Hematocrit 35.6 % (36.0-47.0) Mean Corpuscular Volume 87 fL (79-100) Mean Corpuscular Hemoglobin 29 pg (25-35) Mean Corpuscular Hemoglobin Concent 33 g/dL (31-37) Red Cell Distribution Width 15.1 % (11.5-14.5) Platelet Count 283 x10^3/uL (140-400) Neutrophils (%) (Auto) 78 % (31-73) Lymphocytes (%) (Auto) 12 % (24-48) Monocytes (%) (Auto) 8 % (0-9) Eosinophils (%) (Auto) 1 % (0-3) Basophils (%) (Auto) 1 % (0-3) Neutrophils # (Auto) 6.4 x10^3/uL (1.8-7.7) Lymphocytes # (Auto) 1.0 x10^3/uL (1.0-4.8) Monocytes # (Auto) 0.7 x10^3/uL (0.0-1.1) Eosinophils # (Auto) 0.0 x10^3/uL (0.0-0.7) Basophils # (Auto) 0.1 x10^3/uL (0.0-0.2) Sodium Level 139 mmol/L (136-145) Potassium Level 4.3 mmol/L (3.5-5.1) Chloride Level 102 mmol/L (98-107) Carbon Dioxide Level 33 mmol/L (21-32) Anion Gap 4 (6-14) Blood Urea Nitrogen 17 mg/dL (7-20) Creatinine 0.9 mg/dL (0.6-1.0) Estimated GFR (Cockcroft-Gault) 75.8 BUN/Creatinine Ratio 19 (6-20) Glucose Level 97 mg/dL (70-99) Calcium Level 9.7 mg/dL (8.5-10.1) Total Bilirubin 0.4 mg/dL (0.2-1.0) Aspartate Amino Transf (AST/SGOT) 9 U/L (15-37) Alanine Aminotransferase (ALT/SGPT) 17 U/L (14-59) Alkaline Phosphatase 81 U/L (46-116) Troponin I Quantitative < 0.017 ng/mL (0.000-0.055) LU-Vme-C-Type Natriuretic Peptide 1710 pg/mL (0-124) Total Protein 7.7 g/dL (6.4-8.2) Albumin 3.6 g/dL (3.4-5.0) Albumin/Globulin Ratio 0.9 (1.0-1.7) Lipase 78 U/L (73-393) SARS-CoV-2 Antigen (Rapid) Negative (NEGATIVE) Assessment/Plan Assessment/Plan Chest pain concerning for unstable angina/NSTEMI versus STEMI Anemia of chronic disease Morbid obesity Elevated BNP suggestive of volume overload Moderate protein malnutrition History of diabetes mellitus type 2 COPD on 2 to 3 L nasal cannula at home History of CABG Admit to hospital service for further management EKG showing no acute ST elevations Troponin negative Continue aspirin Plavix We will hold off on cardiology consultation due to patient's frequent presentations and negative work-up As needed nitroglycerin; prefer oral agents for pain control but can try IV morphine if needed Continue home meds as indicated Maintain O2 sats between 88 to 95% Trend troponins Repeat EKG in the a.m. Continue telemetry monitoring Monitor for electrolyte abnormalities Avoid NSAIDs Justifications for Admission Other Justification VENKAT REYES MD Nov 27, 2020 18:01
[2020-11-27] MEDS ORDERED: CALCIUM CARBONATE 500 MG TAB.CHEW PO PRN (18:30)
[2020-11-27] MEDS ORDERED: ELECTROLYTE (NON-ICU) PROTOCOL. MC PRN (18:30)
[2020-11-27] MEDS ORDERED: ACETAMINOPHEN 325 MG TABLET. PO PRN (18:30)
[2020-11-27] MEDS ORDERED: oxyCODONE/APAP 5/325 1 TAB TABLET PO PRN (18:30)
[2020-11-27 19:30] VITALS: BP 183/80
[2020-11-27] MEDS: oxyCODONE/APAP 5/325 1 TAB TABLET PO PRN ×2 (20:35→23:52)
[2020-11-27] MEDS: traZODone 50 MG TABLET. PO SCH (21:00)
[2020-11-27] MEDS: SPIRONOLACTONE 25 MG TABLET PO SCH (21:26)
[2020-11-27] MEDS: ATORVASTATIN CALCIUM 20 MG TABLET PO SCH (21:26)
[2020-11-27] MEDS: SENNOSIDES/DOCUSATE 8.6/50MG TABLET. PO SCH (21:26)
[2020-11-27] MEDS: LACTOBACILLUS RHAMNOSUS GG 1 CAPSULE. PO SCH (21:27)
[2020-11-27] MEDS: HEPARIN for SUB-Q USE 5,000 UNIT/ML VIAL. SQ SCH (21:31)
[2020-11-27] MEDS: ZOLPIDEM 5 MG TABLET. PO PRN (21:33)
--- NOTE | 2020-11-27 21:55 | NUR ---
Placed in ER hold for admit to [id number]. Waiting for bed to become available on the floor. Patient A/O x 4. Pleasant. Cooperative. Placed in ER Room 11. Patient is resting on hospital bed watching TV with call light at hand. Orientated to POC including waiting for bed to become available. Verbalized understanding. Admit orders placed on chart and are being followed as instructed.
[2020-11-27 23:53] VITALS: BP 153/67
[2020-11-28] MEDS: oxyCODONE/APAP 5/325 1 TAB TABLET PO PRN ×4 (03:59→19:49)
[2020-11-28 04:09] VITALS: BP 194/75
[2020-11-28] MEDS: PANTOPRAZOLE 40 MG TABLET.DR. PO SCH (06:16)
[2020-11-28] MEDS: HEPARIN for SUB-Q USE 5,000 UNIT/ML VIAL. SQ SCH ×3 (06:19→21:17)
[2020-11-28 07:00] VITALS: BP 150/75
[2020-11-28] MEDS: CARVEDILOL 12.5 MG TABLET. PO SCH ×2 (08:00→16:13)
[2020-11-28] MEDS: LACTOBACILLUS RHAMNOSUS GG 1 CAPSULE. PO SCH ×2 (08:37→21:15)
[2020-11-28] MEDS: FLUoxetine HCL 20 MG CAPSULE PO SCH (08:37)
[2020-11-28] MEDS: LOSARTAN POTASSIUM 50 MG TABLET. PO SCH (08:40)
--- NOTE | 2020-11-28 08:58 | PDOC2 ---
GABRIELLA VÁSQUEZ PAULINE 11/28/20 0858: CARDIAC CONSULT DATE OF CONSULT Date of Consult DATE: 11/28/20 TIME: 08:56 REASON FOR CONSULT Reason for Consult: Chest pain REFERRING PHYSICIAN Referring Physician: Dr. Mcleod SOURCE Source: Chart review, Patient HISTORY OF PRESENT ILLNESS HISTORY OF PRESENT ILLNESS This is a 65 yo female who presented secondary to shortness of breath and chest pressure. Feels as if she cannot take a deep breath. Patient reports she has been short of breath since the weekend. Has progressively worsened. Had some mild LE edema on Friday, but this has resolved. No associated dizziness, janice phoresis, or nausea/vomiting. PAST MEDICAL HISTORY Past Medical History Cardiovascular: CAD, CHF, HTN, IL, Hyperlipidemia, NICM Pulmonary: Bronchitis, COPD, asthma CENTRAL NERVOUS SYSTEM: Peripheral neuropathy GI: GERD Heme/Onc: No pertinent hx Hepatobiliary: Cholelithiasis Psych: No pertinent hx Musculoskeletal: Osteoarthritis, Weakness Rheumatologic: No pertinent hx Infectious disease: No pertinent hx Renal/: Chronic renal insuff Endocrine: Diabetes PAST SURGICAL HISTORY Past Surgical History Pacemaker (St. Rishi), Appendectomy, Cholecystectomy, Total knee replacement, Hysterectomy, LHC/RHC FAMILY HISTORY Family History: Heart Disease SOCIAL HISTORY Social History Smoke: No ALCOHOL: none Drugs: None Lives: with Family CURRENT MEDICATIONS CURRENT MEDICATIONS Current Medications Medications (Trade) Dose Ordered Sig/Susan Route PRN Reason Start Time Stop Time Status Last Admin Dose Admin Morphine Sulfate (Morphine Sulfate) 4 mg 1X ONCE IVP 11/27/20 17:45 11/27/20 17:48 DC 11/27/20 18:20 Aspirin (Aspirin Chewable) 324 mg 1X ONCE PO 11/27/20 18:00 11/27/20 18:01 DC 11/27/20 18:15 Hydralazine HCl (Apresoline Inj) 10 mg 1X ONCE IVP 11/27/20 18:00 11/27/20 18:56 DC 11/27/20 19:18 Atorvastatin Calcium (Lipitor) 20 mg HS PO 11/27/20 21:00 11/27/20 21:26 Fluoxetine HCl (PROzac) 20 mg DAILY PO 11/28/20 09:00 11/28/20 08:37 Lactobacillus Rhamnosus (Culturelle) 1 cap BID PO 11/27/20 21:00 11/28/20 08:37 Pantoprazole Sodium (Protonix) 40 mg DAILYAC PO 11/28/20 07:30 11/28/20 06:16 Losartan Potassium (Cozaar) 100 mg DAILY PO 11/28/20 09:00 11/28/20 08:40 Spironolactone (Aldactone) 50 mg QHS PO 11/27/20 21:00 11/27/20 21:26 Morphine Sulfate (Morphine Sulfate) 4 mg 1X ONCE IVP 11/27/20 18:15 11/27/20 18:56 DC 11/27/20 19:19 Oxycodone/ Acetaminophen (Percocet 5/325) 2 tab PRN Q4HRS PRN PO MODERATE PAIN, SEVERE PAIN 11/27/20 18:30 11/28/20 08:37 Senna/Docusate Sodium (Senna Plus) 1 tab BID PO 11/27/20 21:00 11/27/20 21:26 Heparin Sodium (Porcine) (Heparin Sodium) 5,000 unit Q8HRS SQ 11/27/20 22:00 11/28/20 06:19 Zolpidem Tartrate (Ambien) 5 mg PRN QHS PRN PO INSOMNIA 11/27/20 20:15 11/27/20 21:33 ALLERGIES ALLERGIES: Coded Allergies: No Known Drug Allergies (Unverified , 11/01/20) ROS Review of System 14 point ROS conducted with pertinent positives noted above in hPI PHYSICAL EXAM PHYSICAL EXAM General: Alert, Oriented X3, Cooperative, No acute distress HEENT: Atraumatic, Mucous membr. moist/pink Lungs: Other (basilar crackles) Heart: Regular rate, Normal S1, Normal S2, Other (2/6 systolic murmur) Abdomen: Soft, No tenderness Extremities: No cyanosis, No edema Skin: No breakdown Neuro: Normal speech, Sensation intact Psych/Mental Status: Mental status NL, Mood NL MUSCULOSKELETAL: Osteoarthritic changes both hands VITALS/I&O VITALS/I&O: Vital Signs Date Time Temp Pulse Resp B/P (MAP) Pulse Ox O2 Delivery O2 Flow Rate FiO2 11/28/20 08:40 65 150/75 11/28/20 08:37 18 98 Room Air 2.0 11/28/20 04:09 98.3 98.3 I & O 11/27/20 11/27/20 11/28/20 15:00 23:00 07:00 Intake Total 720 ml Balance 720 ml LABS Lab: Laboratory Tests Test 11/27/20 17:15 11/27/20 17:17 11/27/20 19:25 11/27/20 22:20 White Blood Count 8.2 x10^3/uL (4.0-11.0) Red Blood Count 4.09 x10^6/uL (3.50-5.40) Hemoglobin 11.8 g/dL (12.0-15.5) L Hematocrit 35.6 % (36.0-47.0) L Mean Corpuscular Volume 87 fL (79-100) Mean Corpuscular Hemoglobin 29 pg (25-35) Mean Corpuscular Hemoglobin Concent 33 g/dL (31-37) Red Cell Distribution Width 15.1 % (11.5-14.5) H Platelet Count 283 x10^3/uL (140-400) Neutrophils (%) (Auto) 78 % (31-73) H Lymphocytes (%) (Auto) 12 % (24-48) L Monocytes (%) (Auto) 8 % (0-9) Eosinophils (%) (Auto) 1 % (0-3) Basophils (%) (Auto) 1 % (0-3) Neutrophils # (Auto) 6.4 x10^3/uL (1.8-7.7) Lymphocytes # (Auto) 1.0 x10^3/uL (1.0-4.8) Monocytes # (Auto) 0.7 x10^3/uL (0.0-1.1) Eosinophils # (Auto) 0.0 x10^3/uL (0.0-0.7) Basophils # (Auto) 0.1 x10^3/uL (0.0-0.2) Sodium Level 139 mmol/L (136-145) Potassium Level 4.3 mmol/L (3.5-5.1) Chloride Level 102 mmol/L (98-107) Carbon Dioxide Level 33 mmol/L (21-32) H Anion Gap 4 (6-14) L Blood Urea Nitrogen 17 mg/dL (7-20) Creatinine 0.9 mg/dL (0.6-1.0) Estimated GFR (Cockcroft-Gault) 75.8 BUN/Creatinine Ratio 19 (6-20) Glucose Level 97 mg/dL (70-99) Calcium Level 9.7 mg/dL (8.5-10.1) Total Bilirubin 0.4 mg/dL (0.2-1.0) Aspartate Amino Transferase (AST) 9 U/L (15-37) L Alanine Aminotransferase (ALT) 17 U/L (14-59) Alkaline Phosphatase 81 U/L (46-116) Troponin I Quantitative < 0.017 ng/mL (0.000-0.055) < 0.017 ng/mL (0.000-0.055) < 0.017 ng/mL (0.000-0.055) QK-Ojq-K-Type Natriuretic Peptide 1710 pg/mL (0-124) H Total Protein 7.7 g/dL (6.4-8.2) Albumin 3.6 g/dL (3.4-5.0) Albumin/Globulin Ratio 0.9 (1.0-1.7) L Lipase 78 U/L (73-393) SARS-CoV-2 Antigen (Rapid) Negative (NEGATIVE) Laboratory Tests 11/27/20 17:15 Laboratory Tests 11/27/20 17:15 IMAGES IMAGES Nuclear Report [facility] Divison of Nuclear Cardiac Imaging Consultation Report EXAMINATION: 99m Technetium-Pyrophosphate imaging for transthyretin cardiac amyloidosis. Date of Study: 11/19/19 BMI: 37.49 kg/m2 INDICATIONS FOR STUDY (HISTORY): This is a 64-year-old lady with hypertension acute on chronic combined congestive heart failure chronic diastolic dysfunction and coronary artery disease. PROCEDURAL DETAILS: Two hours after weight-adjusted intravenous injection of 21.6 mCi of 99m Technetium-Pyrophosphate, Planar and SPECT images were obtained. The exam was performed supine with low energy-high resolution collimators adjusting acquisitions of 750,000 counts. Heart-contralateral lung (H/CL) ratio was calculated at the two hour acquisition. Comparisons of heart uptake to rib uptake were made, and then graded on a scale of 0-3. FINDINGS: Beginning 2 hours after tracer injection projection datasets showed normal rib and bone uptake with some residual blood pool activity but no myocardial uptake. SCINTIGRAPIC (Planar/SPECT): Multiview planar and SPECT imaging confirm the absence of myocardial uptake. Two hour heart/contralateral lung (H/CL) ratio: 1.226 this metric is in the low equivocal range. Visual Semi-Quantitative Grading Scale Analysis: On SPECT analysis the study is grade 0 and not suggestive of ATTR cardiac amyloidosis. Grade 0 implies the absence of myocardial uptake in the presence of normal rib and bone uptake. SUMMARY/OPINION: This study is negative and not suggestive of ATTR cardiac amyloidosis. The heart contralateral lung ratio is likely due to residual blood pool activity. A negative study does not exclude AL cardiac amyloidosis. ECHOCARDIOGRAM ECHOCARDIOGRAM [facility] 11/18/2019 * Mild to moderately reduced ventricular systolic function with an ejection fraction of 40 to 45 %. Moderate to severely thick left ventricular matthews. * Moderate RV dilation and moderate/severe dysfunction. S': 6 cm/s (normal >10 cm/s); TAPSE: 1.1-1.2 cm (Normal ( >1.7 cm) * Grade 2/moderate diastolic dysfunction with evidence of elevated left atrial pressure. * Flattening of the interventricular septum during systole suggestive of elevated RV pressure. * Wall motion abnormalities described below. Demonstration of distal apical se gment/LV apex akinesis. No demonstration of LV thrombus on contrast imaging. * Mild/moderate mitral annular calcification without MS, trace MR. Mild TR. Trileaflet aortic valve significant stenosis or AI. * No pericardial effusion. * Visualized portions of the aortic root and ascending thoracic aorta are within normal limits. * PASP 58 mmHg + CVP. Estimated central venous pressure 0 to 5 mmHg. Compared to a prior August 2019 study. There is interval development of LV dysfunction assessed as likely mild to moderate with an estimated EF of 40 to 45%. There is demonstration of LV apical/true LV apex akinesis that appears unchanged from the prior August 2019 study. There is also intermittent observation for systolic flattening of the interventricular septum suggestive of elevated right-sided pressures. The estimated peak PA systolic pressure is approximately 58 mmHg +0 to 5 mmHg. There is been some interval reduction of the peak PA systolic pressure though there is concern for progressive RV dilatation with now moderate dysfunction per quantitative measures. <Conclusion> Limited echo for LV function. The left ventricular systolic function is normal and the ejection fraction is within normal range. The Ejection Fraction is 55-60%. DATE: 05/31/20 [id number] HEART CATH HEART CATH [facility] RIGHT HEART CATHETERIZATION: The blood pressure was 102/43 mmHg with a mean of 57 mmHg. The heart rate was 65 beats per minute. The right atrial pressure was 12 mmHg. The right ventricular pressure was 68/12 mmHg. The pulmonary artery pressure was 68/25 mmHg with a mean of 39 mmHg. The pulmonary artery capillary wedge pressure was 20 mmHg. The aortic saturation 100%. The right atrial saturation was 72%. The pulmonary artery saturation was 68%. The Liz cardiac output was 7.4 L/minute with a cardiac index of 3.69 L/minute per sq m. Thermodilution cardiac output was 5.5 L/minutes with a cardiac index of 2.7 L/minute per sq m. LEFT HEART CATHETERIZATION: The left ventricular pressure was 132 mmHg with an end-diastolic pressure of 20- 22 mmHg. The aortic pressure was 117/41 mmHg with a mean of 62 mmHg. No gradient on aortic valve pullback was noted. SELECTIVE CORONARY ANGIOGRAPHY: The left main: Left main coronary arises normally from left coronary cusp and bifurcates into left anterior descending and left circumflex artery. It is free of angiographically significant disease. Left anterior descending. The left anterior descending artery was a large caliber vessel, which gives rise to 1 large diagonal and wraps around the apex. A 20% to 30% diffuse stenosis at the origin of the 1st diagonal. The distal portion of the LAD has competitive flow from the GARCIA, and has mild luminal irregularities. Left circumflex artery: The left circumflex artery is a medium caliber vessel, and it gives rise to 1 obtuse marginal branch. The distal portion of the obtuse marginal branch has competitive flow from the venous grafts. Subsequently the entire left circumflex artery system has minimal luminal irregularities. Right coronary artery: The right coronary artery is a dominant vessel. Arises from right coronary cusp. It gives rise to right PDA and PLV arteries. There mild disease in the proximal to midportion. BYPASS GRAFT ANATOMY: SVG to OM: The SVG conduit is a large conduit supplying the midportion of the 1st obtuse marginal branch. It has no significant stenosis along the course of the conduit. GARCIA to LAD: The GARCIA is arises normally from the left subclavian artery and supplies the distal portion of the LAD. The conduit has no significant stenosis along its course. FINAL IMPRESSION: Elevated right atrial pressure and pulmonary capillary wedge pressures suggestive of volume overload. Normal cardiac output. Elevated left ventricular end-diastolic pressure. Patent GARCIA to LAD/SVG to OM grafts with mild coronary artery disease as described above. RECOMMENDATION: The patient has significantly elevated filling pressures suggestive of volume overload and recommend aggressive diuresis for the same. The patient cardiac's output is within normal limits. Mild coronary artery disease with patent grafts. 11/19/2019 ASSESSMENT/PLAN ASSESSMENT/PLAN 1. Acute on chronic diastolic/systolic CHF 2. Chest pain, atypical. AMI ruled out. likely from high BP and CHF. 3. Hypertensive urgency; now improved negative amyloid w/u. 4. CAD: Past CABG. patent SVG to OM and GARCIA to LAD per [facility] 10/2019 as above 5. Secondary pulmonary HTN: RHC as noted above 10/2019 6. VIOLETTA: uses CPAP at home 7. SSS/PPM in situ: St. Rishi. intermittent paced rhythm 8. DM, II 9. Hyperlipidemia 10. Morbid obesity Recommendations Diuresis with monitoring or renal function BP control. Home antiHTN therapy resumed; monitor and titrate therapy as warranted Hydralazine IV PRN Secondary prevention including DAPT with ASA/Plavix and antianginals Consider outpatient ischemic evaluation Supportive care MISBAH HUFFMAN MD 11/29/20 1202: CARDIAC CONSULT ASSESSMENT/PLAN ASSESSMENT/PLAN Patient seen and examined 11/28/2020. Agree with [employer] OFFICER's assessment and plan. Continue diuresis for acute on chronic diastolic heart failure. Chest pain with atypical features. Myocardial infarction has been ruled out. CAD clinically stable. Recent cardiac catheterization results noted above. Resume home antihypertensives and titrate for better blood pressure control SSS s/p, clinically stable PPM Thank you for the consultation GABRIELLA VÁSQUEZ APRN Nov 28, 2020 08:58 MISBAH HUFFMAN MD Nov 29, 2020 12:02
[2020-11-28] MEDS: BUMETANIDE 1 MG TABLET. PO SCH ×2 (08:59→14:47)
[2020-11-28] MEDS: ISOSORBIDE MONONITRATE ER 30 MG TAB.ER.24H PO SCH (08:59)
[2020-11-28] MEDS: CLOPIDOGREL BISULFATE 75 MG TABLET PO SCH (08:59)
[2020-11-28] MEDS: ASPIRIN ENTERIC COATED 81 MG TABLET.DR. PO SCH (08:59)
[2020-11-28] MEDS: SENNOSIDES/DOCUSATE 8.6/50MG TABLET. PO SCH ×2 (09:00→21:15)
[2020-11-28 11:00] VITALS: BP 115/46
[2020-11-28] MEDS ORDERED: BUMETANIDE 2.5 MG/10 ML VIAL. IV ONE (14:45)
[2020-11-28] MEDS ORDERED: hydrALAZINE 20 MG/ML VIAL. IVP PRN (14:45)
[2020-11-28 15:00] VITALS: BP 120/51
--- NOTE | 2020-11-28 15:15 | PDOC ---
[employer] PROGRESS NOTE Date of Service DOS: DATE: 11/28/20 TIME: 15:14 Chief Complaint Chief Complaint Chest pain concerning for unstable angina/NSTEMI versus STEMI Anemia of chronic disease Morbid obesity Elevated BNP suggestive of volume overload Moderate protein malnutrition History of diabetes mellitus type 2 COPD on 2 to 3 L nasal cannula at home History of CABG Continue with cardiology evaluation EKG showing no acute ST elevations Troponin negative Continue aspirin Plavix We will hold off on cardiology consultation due to patient's frequent pres entations and negative work-up As needed nitroglycerin; prefer oral agents for pain control but can try IV morphine if needed Continue home meds as indicated Maintain O2 sats between 88 to 95% Trend troponins Repeat EKG in the a.m. Continue telemetry monitoring Monitor for electrolyte abnormalities Avoid NSAIDs History of Present Illness History of Present Illness 65-year-old female with past medical history of diabetes mellitus type 2, COPD on 2 to 3 L nasal cannula of home O2, CHF, hypertension, history of CABG x2 vessels in 2014, breast reduction who comes in with substernal chest pain that started last night. Patient presents to the emergency room frequently with similar complaints and negative work-up overall. She is well-known to multiple services. She also complains of associated shortness of breath. Most of her physicians that see her at [facility]. Denies fevers, abdominal pain, diarrhea, dysuria or palpitations or syncope. Patient also very hypertensive in emergency room. Patient reports compliance with her medications. 11/28/2020 No acute events overnight. Patient continues to have chest pain that is slightly improved compared to yesterday. Pending further cardiac evaluation. Patient's chart, labs, images were reviewed and discussed with RN Vitals/I&O Vitals/I&O: Vital Signs Date Time Temp Pulse Resp B/P (MAP) Pulse Ox O2 Delivery O2 Flow Rate FiO2 11/28/20 14:38 18 92 Room Air 11/28/20 14:07 2.0 11/28/20 11:00 98.1 60 115/46 (69) 98.1 I & O 11/27/20 11/27/20 11/28/20 15:00 23:00 07:00 Intake Total 720 ml Balance 720 ml Physical Exam General: Alert, Oriented X3, Cooperative Heart: Regular rate Lungs: Clear Abdomen: No tenderness Extremities: No edema Labs Labs: Laboratory Tests Test 11/27/20 17:15 11/27/20 17:17 11/27/20 19:25 11/27/20 22:20 White Blood Count 8.2 x10^3/uL (4.0-11.0) Red Blood Count 4.09 x10^6/uL (3.50-5.40) Hemoglobin 11.8 g/dL (12.0-15.5) Hematocrit 35.6 % (36.0-47.0) Mean Corpuscular Volume 87 fL (79-100) Mean Corpuscular Hemoglobin 29 pg (25-35) Mean Corpuscular Hemoglobin Concent 33 g/dL (31-37) Red Cell Distribution Width 15.1 % (11.5-14.5) Platelet Count 283 x10^3/uL (140-400) Neutrophils (%) (Auto) 78 % (31-73) Lymphocytes (%) (Auto) 12 % (24-48) Monocytes (%) (Auto) 8 % (0-9) Eosinophils (%) (Auto) 1 % (0-3) Basophils (%) (Auto) 1 % (0-3) Neutrophils # (Auto) 6.4 x10^3/uL (1.8-7.7) Lymphocytes # (Auto) 1.0 x10^3/uL (1.0-4.8) Monocytes # (Auto) 0.7 x10^3/uL (0.0-1.1) Eosinophils # (Auto) 0.0 x10^3/uL (0.0-0.7) Basophils # (Auto) 0.1 x10^3/uL (0.0-0.2) Sodium Level 139 mmol/L (136-145) Potassium Level 4.3 mmol/L (3.5-5.1) Chloride Level 102 mmol/L (98-107) Carbon Dioxide Level 33 mmol/L (21-32) Anion Gap 4 (6-14) Blood Urea Nitrogen 17 mg/dL (7-20) Creatinine 0.9 mg/dL (0.6-1.0) Estimated GFR (Cockcroft-Gault) 75.8 BUN/Creatinine Ratio 19 (6-20) Glucose Level 97 mg/dL (70-99) Calcium Level 9.7 mg/dL (8.5-10.1) Total Bilirubin 0.4 mg/dL (0.2-1.0) Aspartate Amino Transf (AST/SGOT) 9 U/L (15-37) Alanine Aminotransferase (ALT/SGPT) 17 U/L (14-59) Alkaline Phosphatase 81 U/L (46-116) Troponin I Quantitative < 0.017 ng/mL (0.000-0.055) < 0.017 ng/mL (0.000-0.055) < 0.017 ng/mL (0.000-0.055) RQ-Vec-F-Type Natriuretic Peptide 1710 pg/mL (0-124) Total Protein 7.7 g/dL (6.4-8.2) Albumin 3.6 g/dL (3.4-5.0) Albumin/Globulin Ratio 0.9 (1.0-1.7) Lipase 78 U/L (73-393) SARS-CoV-2 RNA (ERIC) Invalid (Negative) SARS-CoV-2 Antigen (Rapid) Negative (NEGATIVE) Assessment and Plan Assessmemt and Plan Problems Medical Problems: (1) Chest pain Status: Acute (2) HTN (hypertension) Status: Chronic Comment Review of Relevant I have reviewed the following items nolan (where applicable) has been applied. Medications: Current Medications Medications (Trade) Dose Ordered Sig/Susan Route PRN Reason Start Time Stop Time Status Last Admin Dose Admin Morphine Sulfate (Morphine Sulfate) 4 mg 1X ONCE IVP 11/27/20 17:45 11/27/20 17:48 DC 11/27/20 18:20 Aspirin (Aspirin Chewable) 324 mg 1X ONCE PO 11/27/20 18:00 11/27/20 18:01 DC 11/27/20 18:15 Hydralazine HCl (Apresoline Inj) 10 mg 1X ONCE IVP 11/27/20 18:00 11/27/20 18:56 DC 11/27/20 19:18 Aspirin (Ecotrin) 81 mg DAILY PO 11/28/20 09:00 11/28/20 08:59 Atorvastatin Calcium (Lipitor) 20 mg HS PO 11/27/20 21:00 11/27/20 21:26 Clopidogrel Bisulfate (Plavix) 75 mg DAILY PO 11/28/20 09:00 11/28/20 08:59 Fluoxetine HCl (PROzac) 20 mg DAILY PO 11/28/20 09:00 11/28/20 08:37 Isosorbide Mononitrate (Imdur) 30 mg DAILY PO 11/28/20 09:00 11/28/20 08:59 Lactobacillus Rhamnosus (Culturelle) 1 cap BID PO 11/27/20 21:00 11/28/20 08:37 Pantoprazole Sodium (Protonix) 40 mg DAILYAC PO 11/28/20 07:30 11/28/20 06:16 Bumetanide (Bumex) 2 mg BID94 PO 11/28/20 09:00 11/28/20 08:59 Carvedilol (Coreg) 12.5 mg BIDWMEALS PO 11/28/20 08:00 11/28/20 08:00 Losartan Potassium (Cozaar) 100 mg DAILY PO 11/28/20 09:00 11/28/20 08:40 Spironolactone (Aldactone) 50 mg QHS PO 11/27/20 21:00 11/27/20 21:26 Morphine Sulfate (Morphine Sulfate) 4 mg 1X ONCE IVP 11/27/20 18:15 11/27/20 18:56 DC 11/27/20 19:19 Oxycodone/ Acetaminophen (Percocet 5/325) 2 tab PRN Q4HRS PRN PO MODERATE PAIN, SEVERE PAIN 11/27/20 18:30 11/28/20 14:07 Senna/Docusate Sodium (Senna Plus) 1 tab BID PO 11/27/20 21:00 11/28/20 09:00 Heparin Sodium (Porcine) (Heparin Sodium) 5,000 unit Q8HRS SQ 11/27/20 22:00 11/28/20 14:19 Zolpidem Tartrate (Ambien) 5 mg PRN QHS PRN PO INSOMNIA 11/27/20 20:15 11/27/20 21:33 Justifications for Admission Other Justification DEIDRE WELLINGTON MD Nov 28, 2020 15:15
[2020-11-28] MEDS: CAPSAICIN 0.025% TOPICAL CREAM 60GM TUBE. TP SCH ×2 (16:12→21:00)
[2020-11-28 19:00] VITALS: BP 149/58
[2020-11-28] MEDS: traZODone 50 MG TABLET. PO SCH (21:00)
[2020-11-28] MEDS: ZOLPIDEM 5 MG TABLET. PO PRN (21:15)
[2020-11-28] MEDS: SPIRONOLACTONE 25 MG TABLET PO SCH (21:15)
[2020-11-28] MEDS: ATORVASTATIN CALCIUM 20 MG TABLET PO SCH (21:15)
[2020-11-28 22:32] VITALS: BP 129/53
[2020-11-29] MEDS: oxyCODONE/APAP 5/325 1 TAB TABLET PO PRN ×4 (02:06→14:42)
[2020-11-29 02:43] VITALS: BP 141/63
[2020-11-29] MEDS: HEPARIN for SUB-Q USE 5,000 UNIT/ML VIAL. SQ SCH (06:01)
[2020-11-29] MEDS: PANTOPRAZOLE 40 MG TABLET.DR. PO SCH (06:02)
[2020-11-29 07:00] VITALS: BP 133/43
[2020-11-29] MEDS: BUMETANIDE 1 MG TABLET. PO SCH (08:38)
[2020-11-29] MEDS: ASPIRIN ENTERIC COATED 81 MG TABLET.DR. PO SCH (08:38)
[2020-11-29] MEDS: FLUoxetine HCL 20 MG CAPSULE PO SCH (08:39)
[2020-11-29] MEDS: LOSARTAN POTASSIUM 50 MG TABLET. PO SCH (08:39)
[2020-11-29] MEDS: CLOPIDOGREL BISULFATE 75 MG TABLET PO SCH (08:39)
[2020-11-29] MEDS: SENNOSIDES/DOCUSATE 8.6/50MG TABLET. PO SCH ×2 (08:39→08:45)
[2020-11-29] MEDS: ISOSORBIDE MONONITRATE ER 30 MG TAB.ER.24H PO SCH (08:39)
[2020-11-29] MEDS: LACTOBACILLUS RHAMNOSUS GG 1 CAPSULE. PO SCH ×2 (08:39→08:45)
[2020-11-29] MEDS: CARVEDILOL 12.5 MG TABLET. PO SCH (08:41)
[2020-11-29] MEDS: CAPSAICIN 0.025% TOPICAL CREAM 60GM TUBE. TP SCH (08:42)
--- NOTE | 2020-11-29 10:39 | NUR ---
SS following for discharge planning. SS reviewed pt chart and discussed with pt RN. Pt is from home and is currently requiring oxygen at two liters nasal canula. Pt has home oxygen. COVID19 negative. Discharge plan is currently to home when medically ready for discharge. SS will continue to follow for discharge planning.
--- NOTE | 2020-11-29 10:49 | PDOC ---
GABRIELLA VÁSQUEZ [employer] 11/29/20 1049: CARDIO Progress Notes Date and Time Date of Service 11/29/20 Time of Evaluation 1045 Subjective Subjective: No Chest Pain, No Palpitations, Other (SOA, better but persists. Feels like additional IV Bumex helped ) Vitals Vitals Vital Signs Date Time Temp Pulse Resp B/P (MAP) Pulse Ox O2 Delivery O2 Flow Rate FiO2 11/29/20 10:23 20 98 Room Air 2.0 11/29/20 08:41 61 141/63 11/29/20 07:00 97.4 97.4 Weight Weight [ ] Input and Output Intake and Output Intake and Output 11/29/20 07:00 Intake Total 1080 ml Balance 1080 ml Intake Oral 1080 ml # Voids 2 Laboratory Labs Laboratory Tests Test 11/28/20 16:54 11/28/20 20:22 11/29/20 07:19 Glucose (Fingerstick) 152 mg/dL (70-99) 149 mg/dL (70-99) 109 mg/dL (70-99) Physical Exam HEENT: Neck Supple W Full Motion Chest: Symmetric LUNGS: Other (diminished ) Heart: RRR Abdomen: Soft N/T Extremities: No Edema Neurology: alert, oriented, follow commands Assessment Assessment 1. Acute on chronic diastolic/systolic CHF; improved s/p IV Bumex. 2. Chest pain, atypical. AMI ruled out. likely from high BP and CHF. 3. Hypertensive urgency; now improved. negative amyloid w/u. 4. CAD: Past CABG. patent SVG to OM and GARCIA to LAD per [facility] 10/2019 as above 5. Secondary pulmonary HTN: RHC as noted above 10/2019 6. VIOLETTA: uses CPAP at home 7. SSS/PPM in situ: St. Rishi. intermittent paced rhythm 8. DM, II 9. Hyperlipidemia; statin 10. Morbid obesity Recommendations Bumex therapy; will give additional IV dose today BP control. Secondary prevention including DAPT with ASA/Plavix and antianginals Consider outpatient ischemic evaluation Supportive care Justicifation of Admission Dx: Justifications for Admission: Justification of Admission Dx: N/A MISBHA HUFFMAN MD 11/30/20 1242: CARDIO Progress Notes Assessment Assessment Patient seen and examined 11/29/2020. Agree with H[employer] DRIVER's assessment and plan. Acute on chronic diastolic heart failure better compensated Chest pain with atypical features. CAD status clinically stable. SSS s/p PPM stable Consider outpatient ischemic evaluation GABRIELLA VÁSQUEZ APRN Nov 29, 2020 10:49 MISBAH HUFFMAN MD Nov 30, 2020 12:42
[2020-11-29 11:00] VITALS: BP 109/41
[2020-11-29] MEDS ORDERED: OXYC1TAB22 PO (11:17)
--- NOTE | 2020-11-29 11:19 | DISCH ---
DISCHARGE INSTRUCTIONS Condition on Discharge Condition on Discharge: Stable Activity After Discharge Activity Instructions for Disc: Activity as tolerated Bathing Instructions: No Tub Bath until see Lifting Instructions after Dis: No heavy lifting, No pulling or pushing, Do not lift >10 pounds Exercise Instruction after Dis: Progress as tolerated Driving Instructions after Dis: Do not drive today Weight Bearing Status after Di: As tolerated Diet after Discharge Diet after Discharge: Cardiac, Diabetic No Calorie Level Diet Texture: Regular Liquid Texture: Thin Liquid Swallowing Supervision: None needed Wound Incision Care Wound/Incision Care: Ice to area for comfort Wound Care Equipment: Sutures/gucci Checks after Discharge Checks after discharge: Check blood press - daily, Check blood sugar, ac/hs, Weigh Yourself Daily Contacting the DRAbdiel after DC Call your doctor for: Concerns you may have Follow-Up Follow up with: PCP within 2 weeks of discharge Follow Up With: Cardiology as needed or as scheduled Treatment/Equipment after DC Adaptive Equipment Issued: None Discharge Respiratory Equipmen: Oxygen, Nebulizer DEIDRE WELLINGTON MD Nov 29, 2020 11:19
[2020-11-29] MEDS ORDERED: BUMETANIDE 1 MG/4 ML VIAL. IV SCH (13:15)
[2020-11-29 14:19] LABS: CALCIUM 9.6 mg/dL (8.5-10.1); CREATININE 1.2 mg/dL (0.6-1.0); GFR 54.4; POTASSIUM 4.3 mmol/L (3.5-5.1)
[2020-11-29] MEDS ORDERED: BUMETANIDE 1 MG/4 ML VIAL. IV ONE (15:00)
--- NOTE | 2020-11-29 15:27 | NUR ---
DISCHARGE PATIENT HOME. DISCHARGE INSTRUCTIONS GIVEN. PIV AND HEART MONITOR REMOVED. ESCORTED PATIENT OFF UNIT PER WHEELCHAIR INTO A PRIVATE VEHICLE.
--- NOTE | 2020-12-02 21:23 | PDOC3 ---
[facility]-Discharge Summary Date of Admission: Date of Admission: Nov 27, 2020 Date of Discharge: Date of Discharge: Nov 29, 2020 Discharge Diagnosis: Discharge Diagnosis: Chest pain concerning for unstable angina/NSTEMI versus STEMI Anemia of chronic disease Morbid obesity Elevated BNP suggestive of volume overload Moderate protein malnutrition History of diabetes mellitus type 2 COPD on 2 to 3 L nasal cannula at home History of CABG Consults: Consults: Cardiology Recommendations Bumex therapy; will give additional IV dose today BP control. Secondary prevention including DAPT with ASA/Plavix and antianginals Consider outpatient ischemic evaluation Supportive care Justicifation of Admission Dx: Justifications for Admission: Justification of Admission Dx: N/A MISBAH HUFFMAN MD 11/30/20 1242: CARDIO Progress Notes Assessment Assessment Patient seen and examined 11/29/2020. Agree with [employer]IST's assessment and plan. Acute on chronic diastolic heart failure better compensated Chest pain with atypical features. CAD status clinically stable. SSS s/p PPM stable Consider outpatient ischemic evaluation Hospital Course: Hospital Course: 65-year-old female with past medical history of diabetes mellitus type 2, COPD on 2 to 3 L nasal cannula of home O2, CHF, hypertension, history of CABG x2 vessels in 2014, breast reduction who comes in with substernal chest pain that started last night. Patient presents to the emergency room frequently with similar complaints and negative work-up overall. She is well-known to multiple services. She also complains of associated shortness of breath. Most of her physicians that see her at [facility]. Denies fevers, abdominal pain, diarrhea, dysuria or palpitations or syncope. Patient also very hypertensive in emergency room. Patient reports compliance with her medications. 11/28/2020 No acute events overnight. Patient continues to have chest pain that is slightly improved compared to yesterday. Pending further cardiac evaluation. Patient's chart, labs, images were reviewed and discussed with RN By day of discharge, pt was clinically stable, chest pain free and ready for discharge. Rest of hospital course was uneventful Disposition: Disposition/Orders: D/C to Home Activity: Activity: Resume previous activity Diet: Diet: Cardiac Medications: Home Meds Active Scripts Oxycodone/Apap 10-325 (PERCOCET 10-325 MG TABLET ) 1 Each Tablet, 1 TAB PO PRN Q6HRS PRN for PAIN for 3 Days, #12 TAB 0 Refills Prov:DEIDRE WELLINGTON MD 11/29/20 Oxycodone/Apap 10-325 (PERCOCET 10-325 MG TABLET ) 1 Each Tablet, 2 TAB PO PRN Q6HRS PRN for MODERATE TO SEVERE PAIN for 10 Days, #30 TAB Prov:CHANEL,NIAL K III DO 11/03/20 Lactobacillus Rhamnosus Gg (CULTURELLE) 1 Each Cap.sprink, 1 CAP PO BID for S UPPLEMENT for 30 Days, #60 CAP Prov:JHON ZAPIEN MD 06/02/20 Docusate Sodium (DOK) 100 Mg Capsule, 100 MG PO PRN DAILY PRN for HARD STOOLS for 30 Days, #30 CAP Prov:JHON ZAPIEN MD 06/02/20 Lidocaine (Lidocaine PATCH ) 1 Each Adh..patch, 1 PATCH TD DAILY for BACK PAIN for 30 Days, #30 PATCH Prov:JHON ZAPIEN MD 03/07/20 Insulin Lispro (Admelog) 100 Unit/1 Ml Vial, 0 UNITS SQ TIDWMEALS for DIABETES for 30 Days, #2 EACH Prov:JHON ZAPIEN MD 03/07/20 Guaifenesin/Dextromethorphan (GUAIFENESIN DM SYRUP) 5 Ml Syrup, 10 ML PO PRN Q6HRS PRN for COUGH for 14 Days, #240 MISC Prov:JHON ZAPIEN MD 03/07/20 Benzonatate (BENZONATATE) 100 Mg Capsule, 100 MG PO [id number] for COUGH for 14 Days, #60 CAP Prov:JHON ZAPIEN MD 03/07/20 Pantoprazole Sodium (PROTONIX ) 40 Mg Tablet.dr, 40 MG PO DAILYAC for GERD for 60 Days, #60 TAB Prov:CATHIE KNIGHT MD 01/29/19 Reported Medications Albuterol Sulfate (VENTOLIN HFA INHALER) 18 Gm Hfa.aer.ad, 2 PUFF INH [id number] for FOR ASTHMA, INHALER 0 Refills 01/08/20 Clonazepam (CLONAZEPAM) 1 Mg Tablet, 0.5 MG PO TID for FOR ANXIETY, TAB 01/08/20 Bumetanide (BUMETANIDE) 2 Mg Tablet, 2 MG PO BID for DIURETIC, TAB 01/08/20 Trazodone Hcl (TRAZODONE HCL) 50 Mg Tablet, 50 MG PO HS for DEPRESSION, SLEEP, TAB 01/08/20 Spironolactone (SPIRONOLACTONE) 50 Mg Tablet, 50 MG PO HS for HEART, TAB 01/08/20 Potassium Chloride (POTASSIUM CHLORIDE ) 20 Meq Tablet.er, 20 MEQ PO BIDWMEALS for SUPPLEMENT, TAB.SR 01/08/20 Carvedilol (CARVEDILOL) 25 Mg Tablet, 12.5 MG PO BIDWMEALS for CARDIAC, TAB 01/08/20 Insulin Glargine,Hum.rec.anlog (LANTUS SOLOSTAR) 100 Unit/1 Ml Insuln.pen, 8 UNIT SQ QHS for diabetes, #15 ML 3 Refills 01/08/20 Isosorbide Mononitrate (ISOSORBIDE MONONITRATE ER) 30 Mg Tab.er.24h, 30 MG PO DAILY for hypertension, TAB.SR 01/08/20 Clopidogrel Bisulfate (CLOPIDOGREL) 75 Mg Tablet, 75 MG PO DAILY for TO PREVENT BLOOD CLOTS, #30 TAB 0 Refills 10/10/19 Losartan Potassium (LOSARTAN POTASSIUM) 100 Mg Tablet, 100 MG PO DAILY for HYPERTENSION, TAB 10/10/19 Capsaicin (CAPSAICIN) 60 Gm Cream..g., 60 GM TP TID for , EACH apply to morgan feet 07/14/18 Calcium Carbonate/Vitamin D3 (CALCIUM 500 + VIT D 200 CAPLET) 1 Each Tablet, 1 EACH PO DAILY for supplement, TAB 05/16/18 Fluoxetine Hcl (FLUOXETINE HCL) 20 Mg Capsule, 1 CAP PO DAILY for anti- depressent, #90 CAP 1 Refill 05/16/18 Nitroglycerin (NITROGLYCERIN SubLingual) 0.4 Mg Tab.subl, 0.4 MG SL PRN Q5MIN PRN for CHEST PAIN, BOTTLE 11/01/16 Atorvastatin Calcium (ATORVASTATIN CALCIUM) 20 Mg Tablet, 20 MG PO HS for FOR CHOLESTEROL, #30 TAB 0 Refills 10/28/16 Aspirin (ASPIR 81) 81 Mg Tablet.dr, 1 TAB PO DAILY, #30 TAB 5 Refills 10/28/16 Discontinued Reported Medications Info (NO KNOWN MEDICATIONS PRIOR TO ADMISSTION) Each, 1 EACH for , EACH 11/27/20 Scheduled Albuterol Sulfate (Ventolin Hfa Inhaler), 2 PUFF INH [id number], (Reported) Aspirin (Aspir 81), 1 TAB PO DAILY, (Reported) Atorvastatin Calcium (Atorvastatin Calcium), 20 MG PO HS, (Reported) Benzonatate (Benzonatate), 100 MG PO [id number] Bumetanide (Bumetanide), 2 MG PO BID, (Reported) Calcium Carbonate/Vitamin D3 (Calcium 500 + Vit D 200 Caplet), 1 EACH PO DAILY, (Reported) Capsaicin (Capsaicin), 60 GM TP TID, (Reported) Carvedilol (Carvedilol), 12.5 MG PO BIDWMEALS, (Reported) Clonazepam (Clonazepam), 0.5 MG PO TID, (Reported) Clopidogrel Bisulfate (Clopidogrel), 75 MG PO DAILY, (Reported) Fluoxetine Hcl (Fluoxetine Hcl), 1 CAP PO DAILY, (Reported) Insulin Glargine,Hum.rec.anlog (Lantus Solostar), 8 UNIT SQ QHS, (Reported) Insulin Lispro (Admelog), 0 UNITS SQ TIDWMEALS Isosorbide Mononitrate (Isosorbide Mononitrate Er), 30 MG PO DAILY, (Reported) Lactobacillus Rhamnosus Gg (Culturelle), 1 CAP PO BID Lidocaine (Lidocaine PATCH ), 1 PATCH TD DAILY Losartan Potassium (Losartan Potassium), 100 MG PO DAILY, (Reported) Pantoprazole Sodium (Protonix ), 40 MG PO DAILYAC Potassium Chloride (Potassium Chloride ), 20 MEQ PO BIDWMEALS, (Reported) Spironolactone (Spironolactone), 50 MG PO HS, (Reported) Trazodone Hcl (Trazodone Hcl), 50 MG PO HS, (Reported) Scheduled PRN Docusate Sodium (Dok), 100 MG PO PRN DAILY PRN for HARD STOOLS Guaifenesin/Dextromethorphan (Guaifenesin Dm Syrup), 10 ML PO PRN Q6HRS PRN for COUGH Nitroglycerin (NITROGLYCERIN SubLingual), 0.4 MG SL PRN Q5MIN PRN for CHEST PAIN, (Reported) Oxycodone/Apap 10-325 (Percocet 10-325 Mg Tablet ), 2 TAB PO PRN Q6HRS PRN for MODERATE TO SEVERE PAIN Oxycodone/Apap 10-325 (Percocet 10-325 Mg Tablet ), 1 TAB PO PRN Q6HRS PRN for PAIN Discontinued Medications Info (No Known Medications Prior To Admisstion), 1 EACH MC , (Reported) Total Time: Total Time: Total time spent was 31 minutes in preparing scripts, discharge planning with SW and RN, and preparing this discharge summary. Justicifation of Admission Dx: Justifications for Admission: Justification of Admission Dx: N/A DEIDRE WELLINGTON MD Dec 02, 2020 21:23
== END 2020-11-29 15:27 | disposition home or self-care (01) ==
LOC: ER 15:57 → ED HOLD 17:52 → INTOOBSV 17:52 → 6 SOUTH 11-28 10:23 → 2 NORTH 11-28 10:52 → 6 SOUTH 11-28 10:55
PROVIDERS: ADMIT Student in an Organized Health Care Education/Training Program; ATTEND Student in an Organized Health Care Education/Training Program
DX: I13.0 Hypertensive heart and chronic kidney disease with heart failure and stage 1 through stage 4 chronic kidney disease, or unspecified chronic kidney disease (principal); R07.2 Precordial pain; Z20.822 Contact with and (suspected) exposure to COVID-19; I21.4 Non-ST elevation (NSTEMI) myocardial infarction; I50.43 Acute on chronic combined systolic (congestive) and diastolic (congestive) heart failure; E11.22 Type 2 diabetes mellitus with diabetic chronic kidney disease; E11.40 Type 2 diabetes mellitus with diabetic neuropathy, unspecified; N18.9 Chronic kidney disease, unspecified; E44.0 Moderate protein-calorie malnutrition; E66.01 Morbid (severe) obesity due to excess calories; I25.2 Old myocardial infarction; E78.00 Pure hypercholesterolemia, unspecified; J44.9 Chronic obstructive pulmonary disease, unspecified; E78.5 Hyperlipidemia, unspecified; G47.33 Obstructive sleep apnea (adult) (pediatric); I49.5 Sick sinus syndrome; G89.29 Other chronic pain; I16.0 Hypertensive urgency; I25.10 Atherosclerotic heart disease of native coronary artery without angina pectoris; Z90.49 Acquired absence of other specified parts of digestive tract; Z90.710 Acquired absence of both cervix and uterus; Z98.890 Other specified postprocedural states; Z95.0 Presence of cardiac pacemaker; Z95.1 Presence of aortocoronary bypass graft; Z96.659 Presence of unspecified artificial knee joint
CPT/HCPCS: 36415; 71045; 80048; 80053; 82962; 83690; 83735; 83880; 84484; 85025; 87426; 93005; 96372; 96374; 96375; 96376; 99285; G0378; J0360; J1644; J2270; J3490; U0003; U0005; G0379

== ENCOUNTER 2021-02-05 17:42 | Observation (INO) | payer MEDICARE, MEDICAID ==
[~2021-02-05] VITALS: Ht 162.6 cm; Wt 99.7 kg
[~2021-02-05 17:42] MED LIST changes: +DICY20TA PO; -DICY20TA3 PO; -FLUO20CA20 PO; +FLUO20CA22 PO; +INSU100V6 SQ
--- NOTE | 2021-02-05 18:18 | PHYS DOC ---
Past Medical History Past Medical History: CHF, COPD, Diabetes-Type II, High Cholesterol, Hype rtension, OR, Other Additional Past Medical Histor: O2 @ 2-3 L , chronic pain, NEUROPATHY Past Surgical History: Appendectomy, Cholecystectomy, Coronary Bypass Surgery, Hysterectomy, Knee Replacement, Other Additional Past Surgical Histo: HERNIA REPAIR, CABG X 2 VESSELS 2015; breast reduction; L knee Smoking Status: Never Smoker Alcohol Use: None Drug Use: None General Adult EDM: Chief Complaint: CHEST PAIN HPI: HPI: Patient is a 66 year old female who presents with chest pain that started 2 days ago. Patient states that pain radiates to her right arm and shoulder. Patient reports pain is sharp, constant pressure. Pain is increased at night and with movement. Patient reports the pain is not reproducible. Patient has a history of CABG x2 in 2014, hypertension, high cholesterol, diabetes, CHF. She also reports nausea. Denies vomiting, dizziness, shortness of breath. Denies recent illness. Rating pain 8/10. Review of Systems: Review of Systems: ROS At least 10 ROS systems have been reviewed and are negative except as documented in the HPI. General: Negative except as outlined in HPI above. Skin: Negative except as outlined in HPI above. HEENT: Negative except as outlined in HPI above. Neck: Negative except as outlined in HPI above. Respiratory: Negative except as outlined in HPI above.. Cardiovascular: Negative except as outlined in HPI above. Abdomen: Negative except as outlined in HPI above. : Negative except as outlined in HPI above. Back/MSK: Negative except as outlined in HPI above. Neuro: Negative except as outlined in HPI above. Psych: Negative except as outlined in HPI above. Heart Score: C/O Chest Pain: Yes HEART Score for Chest Pain: HEART Score for Chest Pain Response (Comments) Value History Highly Suspicious 2 ECG Normal 0 Age > 65 2 Risk Factors >3 Risk Factors or Hx CAD 2 Troponin < Normal Limit 0 Total 6 Risk Factors: Risk Factors: DM, Current or recent (<one month) smoker, HTN, HLP, family history of CAD, obesity. Risk Scores: Score 0 - 3: 2.5% MACE over next 6 weeks - Discharge Home Score 4 - 6: 20.3% MACE over next 6 weeks - Admit for Clinical Observation Score 7 - 10: 72.7% MACE over next 6 weeks - Early Invasive Strategies Allergies: Allergies: Allergies Coded Allergies Type Severity Reaction Last Updated Verified No Known Drug Allergies 11/01/20 No Physical Exam: PE: Constitutional: Well developed, well nourished, no acute distress, non-toxic appearance. [] HENT: Normocephalic, atraumatic, bilateral external ears normal, oropharynx moist, no oral exudates, nose normal. [] Eyes: PERRLA, EOMI, conjunctiva normal, no discharge. [] Neck: Normal range of motion, no tenderness, supple, no stridor. [] Cardiovascular:Heart rate regular rhythm, no murmur [] Lungs & Thorax: Bilateral breath sounds clear to auscultation [] Abdomen: Bowel sounds normal, soft, no tenderness, no masses, no pulsatile masses. [] Skin: Warm, dry, no erythema, no rash. [] Back: No tenderness, no CVA tenderness. [] Extremities: No tenderness, no cyanosis, no clubbing, ROM intact, no edema. [] Neurologic: Alert and oriented X 3, normal motor function, normal sensory function, no focal deficits noted. [] Psychologic: Affect normal, judgement normal, mood normal. [] EKG: EKG: Sinus rhythm. Heart rate 57 bpm. No STEMI. [] Radiology/Procedures: Radiology/Procedures: []EXAM: CHEST ONE VIEW. HISTORY: Chest pain. COMPARISON: 12/28/2020. FINDINGS: A frontal view of the chest is obtained. A left-sided pacemaker has its leads in the right atrium and right ventricle. There are changes of coronary artery bypass grafting. Many leads project over the chest. There are interstitial and airspace opacities bilaterally with a basilar predominance. There is no pneumothorax or clear pleural effusion. The heart is moderately enlarged. There are atherosclerotic calcifications of the aorta. IMPRESSION: 1. Stable bilateral basilar predominant interstitial and airspace infiltrates. Electronically signed by: Shante Retana MD (02/05/2021 7:59 PM) [facility] Course & Med Decision Making: Course & Med Decision Making Pertinent Labs and Imaging studies reviewed. (See chart for details) [] 66-year-old female presents with chest pain and nausea. Patient's pain and nausea were treated in the emergency room. Work-up in the ER consisted of urinalysis, labs, chest x-ray. Dragon Disclaimer: Dragon Disclaimer: This electronic medical record was generated, in whole or in part, using a voice recognition dictation system. Departure Departure Impression: Primary Impression: Chest pain Qualified Codes: R07.9 - Chest pain, unspecified Additional Impression: Generalized weakness Disposition: 09 ADMITTED INPATIENT Admitting Physician: MAGNUS Condition: STABLE Referrals: NO PCP (PCP) WESLY ROBBINS APRN Feb 05, 2021 18:18
[2021-02-05] MEDS ORDERED: ASPIRIN CHEWABLE 81 MG TABLET. PO ONE (18:30)
[2021-02-05 18:45] LABS: BILIRUBIN,URINE NEGATIVE (NEG); CLARITY,URINE CLEAR; COLOR,URINE YELLOW; NITRITE,URINE NEGATIVE (NEG); PH,URINE 8.5 (<5.0-8.0); PROTEIN,URINE 30 mg/dL (NEG-TRACE)
[2021-02-05 18:53] LABS: BACTERIA,URINE FEW /HPF (0-FEW)
[2021-02-05 18:54] LABS: RBC,URINE 0 /HPF (0-2)
--- NOTE | 2021-02-05 19:12 | EKG ---
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
--- NOTE | 2021-02-05 20:01 | RAD ---
EXAM: CHEST ONE VIEW. HISTORY: Chest pain. COMPARISON: 12/28/2020. FINDINGS: A frontal view of the chest is obtained. A left-sided pacemaker has its leads in the right atrium and right ventricle. There are changes of coronary artery bypass grafting. Many leads project over the chest. There are interstitial and airspace opacities bilaterally with a basilar predominance. There is no pn eumothorax or clear pleural effusion. The heart is moderately enlarged. There are atherosclerotic surinder cifications of the aorta. IMPRESSION: 1. Stable bilateral basilar predominant interstitial and airspace infiltrates. Electronically signed by: Shante Retana MD (02/05/2021 7:59 PM) [facility]
[2021-02-05] MEDS: MORPHINE SULFATE 4 MG/ML INJ. IV/SQ PRN ×2 (20:07→22:44)
[2021-02-05 20:36] LABS: BASO # 0.1 x10^3/uL (0.0-0.2); BASO % 1 % (0-3); EOS % 0 % (0-3); HEMOGLOBIN 10.9 g/dL (12.0-15.5); LYMPH # 0.9 x10^3/uL (1.0-4.8); LYMPH % 11 % (24-48); MEAN CORPUSCULAR HEMOGLOBIN 28 pg (25-35); MEAN CORPUSCULAR HGB CONC 32 g/dL (31-37); MEAN CORPUSCULAR VOLUME 89 fL (79-100); MONO # 0.6 x10^3/uL (0.0-1.1); MONO % 8 % (0-9); NEUT # 6.4 x10^3/uL (1.8-7.7); NEUT % 81 % (31-73); PLATELET COUNT 286 x10^3/uL (140-400); RED BLOOD COUNT 3.82 x10^6/uL (3.50-5.40); RED CELL DISTRIBUTION WIDTH 15.7 % (11.5-14.5); WHITE BLOOD COUNT 7.9 x10^3/uL (4.0-11.0)
[2021-02-05 20:50] LABS: CALCIUM 9.4 mg/dL (8.5-10.1); CREATININE 0.9 mg/dL (0.6-1.0); GFR 75.6; POTASSIUM 4.7 mmol/L (3.5-5.1)
[2021-02-05 20:52] LABS: PROTHROMBIN TIME PATIENT 13.2 SEC (11.7-14.0)
[2021-02-05 20:58] LABS: ALBUMIN 3.6 g/dL (3.4-5.0); MAGNESIUM 2.6 mg/dL (1.8-2.4); TOTAL BILIRUBIN 0.4 mg/dL (0.2-1.0); TOTAL PROTEIN 7.2 g/dL (6.4-8.2)
[2021-02-05] MEDS ORDERED: ONDANSETRON PF 4 MG/2 ML VIAL. IVP ONE (22:00)
--- NOTE | 2021-02-06 01:26 | NUR ---
The patient, GRETCHEN BONILLA, 66 y/o, F admitted by VENKAT REYES MD, was given written information regarding hospital policies, unit procedures and contact persons. Valuables were checked and left with her.
[2021-02-06] MEDS: IV NORMAL SALINE 1000ML BAG 1,000 ML IV SCH ×2 (02:03→14:23)
[2021-02-06] MEDS: MORPHINE SULFATE 4 MG/ML INJ. IVP PRN ×2 (02:04→05:37)
[2021-02-06 02:30] VITALS: BP 190/69
[2021-02-06] MEDS ORDERED: DEXTROSE 50% 25 GM / 50ML DISP.SYRIN. IV PRN (03:15)
[2021-02-06 07:00] VITALS: BP 179/71
[2021-02-06] MEDS: INSULIN LISPRO 300 UNITS/3 ML VIAL. SQ SCH ×6 (07:30→20:42)
[2021-02-06] MEDS ORDERED: NITROGLYCERIN SUBLINGUAL 0.4 MG BOTTLE OF 25. SL PRN (09:30)
[2021-02-06] MEDS ORDERED: ACETAMINOPHEN 325 MG TABLET. PO PRN (09:30)
[2021-02-06] MEDS ORDERED: ELECTROLYTE (NON-ICU) PROTOCOL. MC PRN (09:30)
--- NOTE | 2021-02-06 09:37 | PDOC1 ---
History and Physical Date of Service: DOS: DATE: 02/06/21 TIME: 09:36 Chief Complaint: Chief Complain: chest pain History of Present Illness: HPI: HPI: Patient is a 66 year old female who presents with chest pain that started 2 days ago. Patient states that pain radiates to her right arm and shoulder. Patient reports pain is sharp, constant pressure. Pain is increased at night and with movement. Patient reports the pain is not reproducible. Patient has a history of CABG x2 in 2014, hypertension, high cholesterol, diabetes, CHF. She also reports nausea. Denies vomiting, dizziness, shortness of breath. Denies recent illness. Rating pain 8/10. Patient frequently presents to the hospital similar complaints with negative work-ups. Not exactly pain seeking just seems to enjoy the company of hospital staff. Past Medical/Surgical History: PMH/PSH: CHF, COPD, Diabetes-Type II, High Cholesterol, Hypertension, LA, Allergies: Allergies: Coded Allergies: No Known Drug Allergies (Unverified , 02/05/21) Family History: Family History: Hypertension Social History: Social History: Denies alcohol tobacco drug use Current Medications: Current Medications Current Medications Aspirin (Aspirin Chewable) 324 mg 1X ONCE PO Last administered on 02/05/21at 20:06; Start 02/05/21 at 18:30; Stop 02/05/21 at 18:31; Status DC Morphine Sulfate (Morphine Sulfate) 4 mg PRN Q15MIN PRN IV/SQ PAIN GREATER THAN 3/10 Last administered on 02/05/21at 22:44; Start 02/05/21 at 18:30; Stop 02/06/21 at 18:29 Ondansetron HCl (Zofran) 4 mg 1X ONCE IVP Last administered on 02/05/21at 22:44; Start 02/05/21 at 22:00; Stop 02/05/21 at 22:01; Status DC Sodium Chloride 1,000 ml @ 75 mls/hr [id number] IV Last administered on 02/06/21at 02:03; Start 02/05/21 at 23:30; Stop 02/06/21 at 23:29 Morphine Sulfate (Morphine Sulfate) 4 mg PRN Q2HR PRN IVP PAIN Last admin istered on 02/06/21at 05:37; Start 02/06/21 at 01:15; Stop 02/07/21 at 01:14 Insulin Human Lispro (HumaLOG) 0-7 UNITS QIDACHS SQ ; Start 02/06/21 at 07:30 Dextrose (Dextrose 50%-Water Syringe) 12.5 gm PRN Q15MIN PRN IV SEE COMMENTS; Start 02/06/21 at 03:15 Info (Non-Icu Electrolyte Protocol) 1 ea PRN DAILY PRN MC SEE COMMENTS; Start 02/06/21 at 09:30; Status UNV Acetaminophen (Tylenol) 650 mg PRN Q6HRS PRN PO Headaches, Temp > 101.5F; Start 02/06/21 at 09:30 Senna/Docusate Sodium (Senna Plus) 1 tab BID PO ; Start 02/06/21 at 21:00; Status UNV Heparin Sodium (Porcine) (Heparin Sodium) 5,000 unit Q8HRS SQ ; Start 02/06/21 at 14:00; Status UNV Amlodipine Besylate (Norvasc) 5 mg DAILY PO ; Start 02/06/21 at 10:00 Aspirin (Ecotrin) 81 mg DAILY PO ; Start 02/06/21 at 10:00 Atorvastatin Calcium (Lipitor) 20 mg HS PO ; Start 02/06/21 at 21:00 Clopidogrel Bisulfate (Plavix) 75 mg DAILY PO ; Start 02/07/21 at 09:00; Status UNV Fluoxetine HCl (PROzac) 20 mg DAILY PO ; Start 02/07/21 at 09:00; Status UNV Insulin Human Regular (HumuLIN R VIAL) 8 unit TIDAC SQ ; Start 02/06/21 at 11:30; Status UNV Isosorbide Mononitrate (Imdur) 30 mg DAILY PO ; Start 02/07/21 at 09:00; Status UNV Nitroglycerin (Nitrostat) 0.4 mg PRN Q5MIN PRN SL CHEST PAIN; Start 02/06/21 at 09:30; Status UNV Pantoprazole Sodium (Protonix) 40 mg DAILYAC PO ; Start 02/07/21 at 07:30; Status UNV Non-Formulary Medication (Bumetanide ) 2 mg BID PO ; Start 02/06/21 at 21:00; Status UNV Non-Formulary Medication (Carvedilol ) 12.5 mg BIDWMEALS PO ; Start 02/06/21 at 17:00; Status UNV Non-Formulary Medication (Clonazepam ) 0.5 mg TID PO ; Start 02/06/21 at 14:00; Status UNV Non-Formulary Medication (Losartan Potassium ) 100 mg DAILY PO ; Start 02/07/21 at 09:00; Status UNV Non-Formulary Medication (Spironolactone ) 50 mg DAILY PO ; Start 02/07/21 at 09:00; Status UNV Active Scripts Active Percocet 10-325 Mg Tablet (Oxycodone/Acetaminophen) 1 Each Tablet 2 Tab PO PRN Q6HRS PRN 10 Days Culturelle (Lactobacillus Rhamnosus Gg) 1 Each Cap.sprink 1 Cap PO BID 30 Days Dok (Docusate Sodium) 100 Mg Capsule 100 Mg PO PRN DAILY PRN 30 Days Lidocaine PATCH (Lidocaine) 1 Each Adh..patch 1 Patch TD DAILY 30 Days Guaifenesin Dm Syrup (Guaifenesin/Dextromethorphan) 5 Ml Syrup 10 Ml PO PRN Q6HRS PRN 14 Days Benzonatate 100 Mg Capsule 100 Mg PO [id number] 14 Days Protonix (Pantoprazole Sodium) 40 Mg Tablet.dr 40 Mg PO DAILYAC 60 Days Reported Ambien (Zolpidem Tartrate) 5 Mg Tablet 5 Mg PO PRN QHS PRN Amlodipine Besylate 5 Mg Tablet 5 Mg PO DAILY Humalog (Insulin Lispro) 100 Unit/1 Ml Vial 8 Unit SQ TIDAC Spironolactone 50 Mg Tablet 50 Mg PO DAILY Ventolin Hfa Inhaler (Albuterol Sulfate) 18 Gm Hfa.aer.ad 2 Puff INH [id number] Clonazepam 1 Mg Tablet 0.5 Mg PO TID Bumetanide 2 Mg Tablet 2 Mg PO BID Trazodone Hcl 50 Mg Tablet 50 Mg PO HS Potassium Chloride (Potassium Chloride) 20 Meq Tablet.er 20 Meq PO BIDWMEALS Carvedilol 25 Mg Tablet 12.5 Mg PO BIDWMEALS Lantus Solostar (Insulin Glargine,Hum.rec.anlog) 100 Unit/1 Ml Insuln.pen 8 Unit SQ QHS Isosorbide Mononitrate Er (Isosorbide Mononitrate) 30 Mg Tab.er.24h 30 Mg PO DAILY Clopidogrel (Clopidogrel Bisulfate) 75 Mg Tablet 75 Mg PO DAILY Losartan Potassium 100 Mg Tablet 100 Mg PO DAILY Capsaicin 60 Gm Cream..g. 60 Gm TP TID apply to morgan feet Calcium 500 + Vit D 200 Caplet (Calcium Carbonate/Vitamin D3) 1 Each Tablet 1 Each PO DAILY Fluoxetine Hcl 20 Mg Capsule 1 Cap PO DAILY NITROGLYCERIN SubLingual (Nitroglycerin) 0.4 Mg Tab.subl 0.4 Mg SL PRN Q5MIN PRN Atorvastatin Calcium 20 Mg Tablet 20 Mg PO HS Aspir 81 (Aspirin) 81 Mg Tablet.dr 1 Tab PO DAILY ROS: Review of Systems Review of System Unless noted in HPI 14 point review systems was negative Physical Exam: Vital Signs: Vital Signs Date Time Temp Pulse Resp B/P (MAP) Pulse Ox O2 Delivery O2 Flow Rate FiO2 02/06/21 07:00 101.0 85 18 179/71 (107) 95 Nasal Cannula 2.0 101.0 Physcial Exam: GEN: No apparent distress. Alert and oriented HEENT: Normal cephalic, atraumatic, external auditory canals are patent EYES: Extraocular muscles are intact, pupil are equally round and reactive to light and accommodation MUSCULOSKELETAL: Well developed , well nourished, good range of motion ENDOCRINE: No thyromegaly was palpated LYMPHATICS: No cervical chain or axillary nodes were noted HEMATOPOIETIC: No bruising NECK: Supple, no JVD, no thyromegaly was noted LUNGS: Clear to auscultation in all lung tripp without rhonchi or wheezing HEART: RRR, S1, S2 present. Peripheral pulses intact, no obvious murmurs noted ABDOMEN: Soft, nontender. Positive bowel sounds, no organomegaly, normal bowel sounds EXTREMITIES: Without clubbing, cyanosis, or edema. Pedal pulses intact. Negative Homans sign NEUROLOGIC: Normal speech and tone. A&O x 3, moves all extremities, no obvious focal deficits PSYCHIATRIC: Normal affect, normal mood. Stable SKIN: No ulcerations or rashes, good skin turgor, no jaundice VASCULAR: Good capillary refill, neurovascular bundle appears to be intact Labs: Labs: Laboratory Tests Test 02/05/21 18:38 02/05/21 20:25 02/05/21 23:20 02/06/21 03:05 Urine Collection Type Unknown Urine Color Yellow Urine Clarity Clear Urine pH 8.5 (<5.0-8.0) Urine Specific [place] 1.010 (1.000-1.030) Urine Protein 30 mg/dL (NEG-TRACE) Urine Glucose (UA) Negative mg/dL (NEG) Urine Ketones (Stick) Negative mg/dL (NEG) Urine Blood Negative (NEG) Urine Nitrite Negative (NEG) Urine Bilirubin Negative (NEG) Urine Urobilinogen Dipstick 1.0 mg/dL (0.2 mg/dL) Urine Leukocyte Esterase Negative (NEG) Urine RBC 0 /HPF (0-2) Urine WBC 1-4 /HPF (0-4) Urine Squamous Epithelial Cells Few /LPF Urine Bacteria Few /HPF (0-FEW) White Blood Count 7.9 x10^3/uL (4.0-11.0) Red Blood Count 3.82 x10^6/uL (3.50-5.40) Hemoglobin 10.9 g/dL (12.0-15.5) Hematocrit 34.0 % (36.0-47.0) Mean Corpuscular Volume 89 fL (79-100) Mean Corpuscular Hemoglobin 28 pg (25-35) Mean Corpuscular Hemoglobin Concent 32 g/dL (31-37) Red Cell Distribution Width 15.7 % (11.5-14.5) Platelet Count 286 x10^3/uL (140-400) Neutrophils (%) (Auto) 81 % (31-73) Lymphocytes (%) (Auto) 11 % (24-48) Monocytes (%) (Auto) 8 % (0-9) Eosinophils (%) (Auto) 0 % (0-3) Basophils (%) (Auto) 1 % (0-3) Neutrophils # (Auto) 6.4 x10^3/uL (1.8-7.7) Lymphocytes # (Auto) 0.9 x10^3/uL (1.0-4.8) Monocytes # (Auto) 0.6 x10^3/uL (0.0-1.1) Eosinophils # (Auto) 0.0 x10^3/uL (0.0-0.7) Basophils # (Auto) 0.1 x10^3/uL (0.0-0.2) Prothrombin Time 13.2 SEC (11.7-14.0) Prothromb Time International Ratio 1.0 (0.8-1.1) Activated Partial Thromboplast Time 34 SEC (24-38) Sodium Level 139 mmol/L (136-145) Potassium Level 4.7 mmol/L (3.5-5.1) Chloride Level 98 mmol/L (98-107) Carbon Dioxide Level 36 mmol/L (21-32) Anion Gap 5 (6-14) Blood Urea Nitrogen 9 mg/dL (7-20) Creatinine 0.9 mg/dL (0.6-1.0) Estimated GFR (Cockcroft-Gault) 75.6 BUN/Creatinine Ratio 10 (6-20) Glucose Level 92 mg/dL (70-99) Calcium Level 9.4 mg/dL (8.5-10.1) Magnesium Level 2.6 mg/dL (1.8-2.4) Total Bilirubin 0.4 mg/dL (0.2-1.0) Aspartate Amino Transf (AST/SGOT) 12 U/L (15-37) Alanine Aminotransferase (ALT/SGPT) 21 U/L (14-59) Alkaline Phosphatase 87 U/L (46-116) Troponin I High Sensitivity 17 ng/L (4-50) 18 ng/L (4-50) 18 ng/L (4-50) NR-Grm-A-Type Natriuretic Peptide 2975 pg/mL (0-124) Total Protein 7.2 g/dL (6.4-8.2) Albumin 3.6 g/dL (3.4-5.0) Albumin/Globulin Ratio 1.0 (1.0-1.7) Lipase 64 U/L (73-393) Test 02/06/21 08:13 Glucose (Fingerstick) 135 mg/dL (70-99) Laboratory Tests Test 02/05/21 18:38 02/05/21 20:25 02/05/21 23:20 02/06/21 03:05 Urine Collection Type Unknown Urine Color Yellow Urine Clarity Clear Urine pH 8.5 (<5.0-8.0) Urine Specific [place] 1.010 (1.000-1.030) Urine Protein 30 mg/dL (NEG-TRACE) Urine Glucose (UA) Negative mg/dL (NEG) Urine Ketones (Stick) Negative mg/dL (NEG) Urine Blood Negative (NEG) Urine Nitrite Negative (NEG) Urine Bilirubin Negative (NEG) Urine Urobilinogen Dipstick 1.0 mg/dL (0.2 mg/dL) Urine Leukocyte Esterase Negative (NEG) Urine RBC 0 /HPF (0-2) Urine WBC 1-4 /HPF (0-4) Urine Squamous Epithelial Cells Few /LPF Urine Bacteria Few /HPF (0-FEW) White Blood Count 7.9 x10^3/uL (4.0-11.0) Red Blood Count 3.82 x10^6/uL (3.50-5.40) Hemoglobin 10.9 g/dL (12.0-15.5) Hematocrit 34.0 % (36.0-47.0) Mean Corpuscular Volume 89 fL (79-100) Mean Corpuscular Hemoglobin 28 pg (25-35) Mean Corpuscular Hemoglobin Concent 32 g/dL (31-37) Red Cell Distribution Width 15.7 % (11.5-14.5) Platelet Count 286 x10^3/uL (140-400) Neutrophils (%) (Auto) 81 % (31-73) Lymphocytes (%) (Auto) 11 % (24-48) Monocytes (%) (Auto) 8 % (0-9) Eosinophils (%) (Auto) 0 % (0-3) Basophils (%) (Auto) 1 % (0-3) Neutrophils # (Auto) 6.4 x10^3/uL (1.8-7.7) Lymphocytes # (Auto) 0.9 x10^3/uL (1.0-4.8) Monocytes # (Auto) 0.6 x10^3/uL (0.0-1.1) Eosinophils # (Auto) 0.0 x10^3/uL (0.0-0.7) Basophils # (Auto) 0.1 x10^3/uL (0.0-0.2) Prothrombin Time 13.2 SEC (11.7-14.0) Prothromb Time International Ratio 1.0 (0.8-1.1) Activated Partial Thromboplast Time 34 SEC (24-38) Sodium Level 139 mmol/L (136-145) Potassium Level 4.7 mmol/L (3.5-5.1) Chloride Level 98 mmol/L (98-107) Carbon Dioxide Level 36 mmol/L (21-32) Anion Gap 5 (6-14) Blood Urea Nitrogen 9 mg/dL (7-20) Creatinine 0.9 mg/dL (0.6-1.0) Estimated GFR (Cockcroft-Gault) 75.6 BUN/Creatinine Ratio 10 (6-20) Glucose Level 92 mg/dL (70-99) Calcium Level 9.4 mg/dL (8.5-10.1) Magnesium Level 2.6 mg/dL (1.8-2.4) Total Bilirubin 0.4 mg/dL (0.2-1.0) Aspartate Amino Transf (AST/SGOT) 12 U/L (15-37) Alanine Aminotransferase (ALT/SGPT) 21 U/L (14-59) Alkaline Phosphatase 87 U/L (46-116) Troponin I High Sensitivity 17 ng/L (4-50) 18 ng/L (4-50) 18 ng/L (4-50) OG-Iwx-U-Type Natriuretic Peptide 2975 pg/mL (0-124) Total Protein 7.2 g/dL (6.4-8.2) Albumin 3.6 g/dL (3.4-5.0) Albumin/Globulin Ratio 1.0 (1.0-1.7) Lipase 64 U/L (73-393) Test 02/06/21 08:13 Glucose (Fingerstick) 135 mg/dL (70-99) Assessment/Plan Assessment/Plan Chest pain, significant cardiac history, COPD, type 2 diabetes hyperlipidemia hypertension -Patient presenting with 2-day history of chest pain. -Notable cardiac history. Frequently presents for chest pain however with negative work-ups -Troponins x3 here negative thus far. -Received aspirin morphine in the emergency room -We will resume home meds. Does look a little fluid overloaded will give extra dose of Lasix. -Continue to monitor. I discussed advance care planning with this patient for 25 minutes. Justifications for Admission Other Justification VENKAT REYES MD Feb 06, 2021 09:37
[2021-02-06] MEDS ORDERED: FUROSEMIDE 40 MG/4 ML VIAL. IVP ONE (09:45)
[2021-02-06] MEDS: FLUoxetine HCL 20 MG CAPSULE PO SCH (10:00)
[2021-02-06] MEDS: BUMETANIDE 1 MG TABLET. PO SCH ×2 (10:06→16:00)
[2021-02-06] MEDS: clonazePAM 0.5 MG TABLET PO SCH ×3 (10:06→20:37)
[2021-02-06] MEDS: CARVEDILOL 12.5 MG TABLET. PO SCH ×2 (10:07→16:47)
[2021-02-06] MEDS: ASPIRIN ENTERIC COATED 81 MG TABLET.DR. PO SCH (10:07)
[2021-02-06] MEDS: SENNOSIDES/DOCUSATE 8.6/50MG TABLET. PO SCH ×2 (10:07→20:37)
[2021-02-06] MEDS: PANTOPRAZOLE 40 MG TABLET.DR. PO SCH (10:07)
[2021-02-06] MEDS: SPIRONOLACTONE 25 MG TABLET PO SCH (10:07)
[2021-02-06] MEDS: LOSARTAN POTASSIUM 50 MG TABLET. PO SCH (10:08)
[2021-02-06] MEDS: ISOSORBIDE MONONITRATE ER 30 MG TAB.ER.24H PO SCH (10:08)
[2021-02-06] MEDS: CLOPIDOGREL BISULFATE 75 MG TABLET PO SCH (10:08)
[2021-02-06] MEDS ORDERED: oxyCODONE/APAP 10/325 1 TAB TABLET PO ONE (10:15)
[2021-02-06 11:00] VITALS: BP 124/51
--- NOTE | 2021-02-06 11:00 | NUR ---
SW following. Discussed with RN, pt from home, 3L (uses oxygen at home), cardiac diet. RN advised no SW needs. Dr. Chowdhury hoping to discharge pt home today. SW will continue to follow.
[2021-02-06] MEDS: HEPARIN for SUB-Q USE 5,000 UNIT/ML VIAL. SQ SCH ×2 (14:26→21:01)
[2021-02-06 15:00] VITALS: BP 138/52
[2021-02-06] MEDS: traMADol 50 MG TABLET PO PRN (17:51)
[2021-02-06 19:00] VITALS: BP 144/65
[2021-02-06] MEDS ORDERED: ATORVASTATIN CALCIUM 20 MG TABLET PO SCH (21:00)
[2021-02-06 23:00] VITALS: BP 180/55
[2021-02-07 03:00] VITALS: BP 174/63
[2021-02-07] MEDS: traMADol 50 MG TABLET PO PRN ×2 (03:16→10:04)
[2021-02-07] MEDS: PANTOPRAZOLE 40 MG TABLET.DR. PO SCH (04:54)
[2021-02-07] MEDS: HEPARIN for SUB-Q USE 5,000 UNIT/ML VIAL. SQ SCH ×2 (04:55→14:57)
[2021-02-07 07:00] VITALS: BP 145/55
[2021-02-07] MEDS: INSULIN LISPRO 300 UNITS/3 ML VIAL. SQ SCH ×6 (07:30→16:28)
--- NOTE | 2021-02-07 08:52 | PDOC ---
[facility] [facility] PROGRESS NOTE Date of Service DOS: DATE: 02/07/21 TIME: 08:51 Chief Complaint Chief Complaint Chest pain significant cardiac history, COPD, type 2 diabetes hyperlipidemia hypertension History of Present Illness History of Present Illness 02/08/2012 Patient seen and examined She is resting with no apparent distress Chart reviewed Discussed with RN Vitals/I&O Vitals/I&O: Vital Signs Date Time Temp Pulse Resp B/P (MAP) Pulse Ox O2 Delivery O2 Flow Rate FiO2 02/07/21 03:46 18 95 Nasal Cannula 2.0 02/07/21 03:00 98.0 55 174/63 (100) 98.0 I & O 02/06/21 02/06/21 02/07/21 15:00 23:00 07:00 Intake Total 380 ml 480 ml 720 ml Output Total 900 ml Balance 380 ml 480 ml -180 ml Physical Exam General: No acute distress Heart: Regular rate Lungs: Clear, Crackles Abdomen: Normal bowel sounds Extremities: No clubbing Skin: No rashes Labs Labs: Laboratory Tests Test 02/06/21 11:44 02/06/21 17:17 02/06/21 20:40 02/07/21 07:35 Glucose (Fingerstick) 86 mg/dL (70-99) 123 mg/dL (70-99) 109 mg/dL (70-99) 82 mg/dL (70-99) Assessment and Plan Assessmemt and Plan Problems Medical Problems: (1) Chest pain Status: Acute Chest pain significant cardiac history, COPD, type 2 diabetes hyperlipidemia hypertension Plan Cardiac monitoring Home meds DVT prophylaxis Full code Hope to discharge later today if stable Comment Review of Relevant I have reviewed the following items nolan (where applicable) has been applied. Medications: Current Medications Medications (Trade) Dose Ordered Sig/Susan Route PRN Reason Start Time Stop Time Status Last Admin Dose Admin Acetaminophen (Tylenol) 650 mg PRN Q6HRS PRN PO Headaches, Temp > 101.5F 02/06/21 09:30 02/06/21 20:37 Senna/Docusate Sodium (Senna Plus) 1 tab BID PO 02/06/21 10:00 02/06/21 20:37 Heparin Sodium (Porcine) (Heparin Sodium) 5,000 unit Q8HRS SQ 02/06/21 14:00 02/07/21 04:55 Amlodipine Besylate (Norvasc) 5 mg DAILY PO 02/06/21 10:00 02/06/21 10:08 Aspirin (Ecotrin) 81 mg DAILY PO 02/06/21 10:00 02/06/21 10:07 Atorvastatin Calcium (Lipitor) 20 mg HS PO 02/06/21 21:00 02/06/21 20:37 Clopidogrel Bisulfate (Plavix) 75 mg DAILY PO 02/06/21 10:00 02/06/21 10:08 Isosorbide Mononitrate (Imdur) 30 mg DAILY PO 02/06/21 10:00 02/06/21 10:08 Pantoprazole Sodium (Protonix) 40 mg DAILYAC PO 02/06/21 10:00 02/07/21 04:54 Bumetanide (Bumex) 2 mg BID94 PO 02/06/21 10:00 02/06/21 10:06 Carvedilol (Coreg) 12.5 mg BIDWMEALS PO 02/06/21 10:00 02/06/21 10:07 Clonazepam (KlonoPIN) 0.5 mg TID PO 02/06/21 09:45 02/06/21 20:37 Losartan Potassium (Cozaar) 100 mg DAILY PO 02/06/21 10:00 02/06/21 10:08 Spironolactone (Aldactone) 50 mg DAILY PO 02/06/21 10:00 02/06/21 10:07 Furosemide (Lasix) 40 mg 1X ONCE IVP 02/06/21 09:45 02/06/21 09:46 DC 02/06/21 10:08 Oxycodone/ Acetaminophen (Percocet 10/325) 1 tab 1X ONCE PO 02/06/21 10:15 02/06/21 10:16 DC 02/06/21 10:19 Tramadol HCl (Ultram) 50 mg PRN Q6HRS PRN PO PAIN 02/06/21 17:45 02/07/21 03:16 Justifications for Admission Other Justification PERICO BUCHANAN III DO Feb 07, 2021 08:52
[2021-02-07] MEDS ORDERED: OXYC1TAB22 PO (08:55)
[2021-02-07] MEDS: SPIRONOLACTONE 25 MG TABLET PO SCH (10:04)
[2021-02-07] MEDS: BUMETANIDE 1 MG TABLET. PO SCH ×2 (10:04→16:29)
[2021-02-07] MEDS: ASPIRIN ENTERIC COATED 81 MG TABLET.DR. PO SCH (10:04)
[2021-02-07] MEDS: SENNOSIDES/DOCUSATE 8.6/50MG TABLET. PO SCH (10:05)
[2021-02-07] MEDS: CLOPIDOGREL BISULFATE 75 MG TABLET PO SCH (10:05)
[2021-02-07] MEDS: LOSARTAN POTASSIUM 50 MG TABLET. PO SCH (10:05)
[2021-02-07] MEDS: FLUoxetine HCL 20 MG CAPSULE PO SCH (10:05)
[2021-02-07] MEDS: clonazePAM 0.5 MG TABLET PO SCH ×2 (10:05→14:56)
[2021-02-07] MEDS: CARVEDILOL 12.5 MG TABLET. PO SCH ×2 (10:05→16:29)
[2021-02-07] MEDS: ISOSORBIDE MONONITRATE ER 30 MG TAB.ER.24H PO SCH (10:06)
[2021-02-07 11:00] VITALS: BP 149/47
[2021-02-07] MEDS: oxyCODONE/APAP 10/325 1 TAB TABLET PO PRN ×2 (12:05→16:30)
--- NOTE | 2021-02-07 13:48 | NUR ---
SW following. Discussed with RN, discharge order for home with self care. RN advised no SW needs.
[2021-02-07 15:00] VITALS: BP 121/48
[2021-02-07 16:29] VITALS: BP 149/47
--- NOTE | 2021-02-07 18:58 | DS ---
DATE OF DISCHARGE: 02/07/2021 ADMISSION DIAGNOSIS: Chest pain. DISCHARGE DIAGNOSES: Atypical chest pain, history of coronary artery disease, narcotic dependence, depression, anxiety, hyperlipidemia, congestive heart failure, chronic pain, gastroesophageal reflux disease and insomnia. CONSULTS: None. PROCEDURES: None. HOSPITAL COURSE: The patient is a pleasant 66-year-old female who we admit often. She has chronic chest pain. Once again, we admitted her. We did serial enzymes. They were all negative. Today, I saw her and examined her. She is at her baseline. We plan to discharge. DISPOSITION: Home. ACTIVITY: As tolerated. DIET: Low sodium. DISCHARGE MEDICATIONS: Please see the MRAD. Continue her home medications and I did send a prescription for her refill of Percocet 10 mg one q.4 hours p.r.n. pain. TOTAL TIME: 34 minutes. AHMET/MAHIN/BON DR: John TID: [id number]
--- NOTE | 2021-02-07 18:59 | NUR ---
Discharge Note: GRETCHEN BONILLA [address] Discharge instructions and discharge home medications reviewed with Patient and a copy given. All questions have been answered and understanding verbalized. The following instructions and handouts were given: Patient gived education regarding medication and follow ups. Discontinued lines and drains: IV removed per protocol. Patient discharged home, taken via cab pass.
== END 2021-02-07 18:55 | disposition home or self-care (01) ==
LOC: ER 17:42 → INTOOBSV 22:54 → 5 SOUTH 22:54
PROVIDERS: ADMIT Student in an Organized Health Care Education/Training Program; ATTEND Student in an Organized Health Care Education/Training Program
DX: R07.89 Other chest pain (principal); I11.0 Hypertensive heart disease with heart failure; I50.9 Heart failure, unspecified; I25.10 Atherosclerotic heart disease of native coronary artery without angina pectoris; J44.9 Chronic obstructive pulmonary disease, unspecified; E11.9 Type 2 diabetes mellitus without complications; E78.5 Hyperlipidemia, unspecified; E78.00 Pure hypercholesterolemia, unspecified; R53.1 Weakness; Z90.49 Acquired absence of other specified parts of digestive tract; Z90.710 Acquired absence of both cervix and uterus; Z95.1 Presence of aortocoronary bypass graft; Z96.659 Presence of unspecified artificial knee joint; Z79.899 Other long term (current) drug therapy; Z98.890 Other specified postprocedural states
CPT/HCPCS: 36415; 71045; 80053; 81001; 82962; 83690; 83735; 83880; 84484; 85025; 85610; 85730; 93005; 96372; 96374; 96375; 96376; 99285; G0378; J1644; J1815; J1940; J2270; J2405; J7030; 96361; G0379

== ENCOUNTER 2021-03-23 15:47 | Inpatient (IN) | payer MEDICARE, MEDICAID ==
[~2021-03-23] VITALS: Ht 162.6 cm; Wt 103.0 kg
--- NOTE | 2021-03-23 17:56 | PHYS DOC ---
Past Medical History Past Medical History: CHF, COPD, Diabetes-Type II, High Cholesterol, Hype rtension, CO, Other Additional Past Medical Histor: O2 @ 2-3 L , chronic pain, NEUROPATHY (ZULMA SANTOYO MD) Past Surgical History: Appendectomy, Cholecystectomy, Coronary Bypass Surgery, Hysterectomy, Knee Replacement, Other Additional Past Surgical Histo: HERNIA REPAIR, CABG X 2 VESSELS 2015; breast re duction; L knee (ZULMA SANTOYO MD) Smoking Status: Never Smoker Alcohol Use: None Drug Use: None (ZULMA SANTOYO MD) General Adult EDM: Chief Complaint: SHORTNESS OF BREATH HPI: HPI: Patient is a 66 year old female with history of atrial fibrillation, CHF, CAD s/p CABG who presents with chest pain, shortness of breath. Patient states symptoms started the day after Chloe with increasing exertional shortness of breath. She wears home O2 2-3 L/min at baseline. She thinks she may have gained about 11kg over the past month. She feels that both of her legs are more swollen than usual. The right is more swollen than the left which is not typical for her. Chest pain has been constant since yesterday. Sharp, substernal. Does not radiate. Worse with exertion. She is on bumex. No blood thinners, but is taking plavix. Denies fever, chills, cough, runny nose, sore throat, sputum production. No sick contacts or covid contacts. Has had 2 shots of mRNA vaccine. No booster. (ZULMA SANTOYO MD) Review of Systems: Review of Systems: Constitutional: Denies fever or chills. Reports weight gain. [] Eyes: Denies change in visual acuity. [] HENT: Denies nasal congestion or sore throat. [] Respiratory: Denies cough. Reports SOB. Cardiovascular: Reports chest pain and edema. GI: Denies abdominal pain, nausea, vomiting, bloody stools or diarrhea. [] : Denies dysuria. [] Musculoskeletal: Denies back pain or joint pain. [] Integument: Denies rash. [] Neurologic: Denies headache, focal weakness or sensory changes. [] Psychiatric: Denies depression or anxiety. [] (ZULMA SANTOYO MD) Heart Score: C/O Chest Pain: Yes HEART Score for Chest Pain: HEART Score for Chest Pain Response (Comments) Value History Moderately Suspicious 1 ECG Nonspecific Repolarizatio 1 Age > 65 2 Risk Factors >3 Risk Factors or Hx CAD 2 Total 6 Risk Factors: Risk Factors: history of CAD Risk Scores: Score 4 - 6: 20.3% MACE over next 6 weeks - Admit for Clinical Observation Score 7 - 10: 72.7% MACE over next 6 weeks - Early Invasive Strategies (ZULMA SANTOYO MD) Current Medications: Current Medications Medications (Trade) Dose Ordered Sig/Susan Start Time Stop Time Status Last Admin Dose Admin Aspirin (Aspirin Chewable) 324 mg 1X ONCE 03/23/21 18:00 03/23/21 18:01 (ZULMA SANTOYO MD) Allergies: Allergies: Allergies Coded Allergies Type Severity Reaction Last Updated Verified No Known Drug Allergies 02/05/21 No (ZULMA SANTOYO MD) Physical Exam: PE: Constitutional: Mildly increased work of breathing, on home O2 NC HENT: Normocephalic, atraumatic Eyes: PERRLA, EOMI Neck: Normal range of motion, no tenderness, supple, no stridor. [] Cardiovascular:Heart rate regular rhythm, no murmur [] Lungs & Thorax: Increased work of breathing, mild tachypnea, prolonged exp iratory phase. Obese habitus limits auscultation, no obvious focal lung sounds or crackles. Abdomen: Bowel sounds normal, soft, no tenderness, no masses, no pulsatile masses. [] Skin: Warm, dry, no erythema, no rash. [] Back: No tenderness, no CVA tenderness. [] Extremities: Bilateral lower extremity edema, right significantly greater than left. Neurologic: Alert and oriented X 3, normal motor function, normal sensory function, no focal deficits noted. [] (ZULMA SANTOYO MD) PE: Constitutional: Well developed, obese, non-toxic appearance HENT: Normocephalic, atraumatic Eyes: Conjunctiva normal, no discharge Neck: Normal range of motion, supple Lungs & Thorax: No respiratory distress, equal chest rise and fall Abdomen: Soft, no tenderness Skin: Warm, dry, no erythema, no rash Extremities: No tenderness, ROM intact, RLE edema > LLE Neurologic: Alert and oriented X 3, no focal deficits noted Psychologic: Affect normal, judgment normal (ROMERO,JUSTIN Hairston DO) Current Patient Data: Vital Signs: Vital Signs Date Time Temp Pulse Resp B/P (MAP) Pulse Ox O2 Delivery O2 Flow Rate FiO2 03/23/21 17:00 98.8 85 28 119/35 (63) 82 Room Air 98.8 (ZULMA SANTOYO MD) EKG: EKG: afib. rate 56. RBBB. Right superior axis deviation. [] (ZULMA SANTOYO MD) Radiology/Procedures: Radiology/Procedures: [] Impression: [facility] [address] [place] [address] IMAGING REPORT Signed PATIENT: GRETCHEN BONILLA EACCOUNT: [id number] : 1955 LOCATION: ER AGE: 66 SEX: F EXAM STATUS: REG ER ORD. PHYSICIAN: ZULMA SANTOYO MD REASON: sob, weight gain PROCEDURE: CHEST AP ONLY EXAMINATION: Chest radiograph. VIEWS: Single AP view of the chest COMPARISON: 03/01/2021 INDICATION:66 years, Female, weight gain. FINDINGS: Stable moderately enlarged cardiomediastinal silhouette. Left chest cardiac generator unchanged in position. Median sternotomy wires. Increased indistinct central pulmonary vasculature. Overall similar bilateral perihilar and right lung base hazy opacity. No pleural effusion or pneumothorax. No acute osseous process. IMPRESSION: Overall similar findings favoring moderate interstitial pulmonary edema and/or pneumonia. Electronically signed by: Boby Akbar DO (03/23/2021 6:03 PM) [facility] DICTATED and SIGNED BY: BOBY AKBAR DO DATE: 03/23/21 [id number] (ZULMA SANTOYO MD) Radiology/Procedures: PROCEDURE: CHEST AP ONLY EXAMINATION: Chest radiograph. VIEWS: Single AP view of the chest COMPARISON: 03/01/2021 INDICATION:66 years, Female, weight gain. FINDINGS: Stable moderately enlarged cardiomediastinal silhouette. Left chest cardiac generator unchanged in position. Median sternotomy wires. Increased indistinct central pulmonary vasculature. Overall similar bilateral perihilar and right lung base hazy opacity. No pleural effusion or pneumothorax. No acute osseous process. IMPRESSION: Overall similar findings favoring moderate interstitial pulmonary edema and/or pneumonia. Electronically signed by: Boby Akbar DO (03/23/2021 6:03 PM) [facility] PROCEDURE: VENOUS LOWER EXTREMITY RIGHT EXAMINATION: US DPLX VENOUS EXTREMITY LOWER RT INDICATION: Reason: increased swelling, TECH NOTIFIED / Spl. Instructions: / History: COMPARISONS: None TECHNIQUE: Grayscale, color and spectral Doppler evaluation of the right lower extremity deep venous system(s) was performed. FINDINGS: right common femoral, femoral and popliteal veins are normally compressible and demonstrate normally directed and appropriately phasic flow with augmentation. Normal flow is present within the saphenofemoral junctions and deep femoral veins in the proximal thighs and the posterior tibial and peroneal veins in the proximal calves. IMPRESSION: No evidence of deep venous thrombosis in the right lower extremity. Electronically signed by: Boby Akbar DO (03/23/2021 8:20 PM) [facility] PROCEDURE: CT ANGIOGRAPHY CHEST CT angiography chest with contrast PQRS statement: CT scans at this facility use dose reduction including either automated exposure control, iterative reconstructions, and /or weight based radiation dosing via mA and kV modification when appropriate to reduce radiation dose to as low as reasonably achievable. HISTORY: Shortness of breath, elevated d-dimer, pulmonary nodules. Contrast: 100 mL Omnipaque 350 intravenous contrast with 3-D MIP reconstructions of the arteries are. COMPARISON: CT chest March 03, 2020 FINDINGS: Extensive calcified plaque are present thoracic aorta. Postoperative changes of coronary artery bypass. Cardiomegaly. Surface irregularity of the liver may represent cirrhosis. 3 x 1 cm left supraumbilical ventral abdominal wall fatty hernia extends outside the [id number]. Esophagus is normal. Border line enlarged paratracheal mediastinal lymph nodes measuring up to 1 cm. Cardiac pacemaker. No pulmonary artery emboli. Trachea and bronchi are unremarkable. There are bilateral heterogeneous groundglass and consolidative pulmonary opacities of both the upper and lower lung zones. No pleural effusions. There is still present interstitial thickening likely edema. IMPRESSION: 1. No pulmonary emboli. 2. Bilateral heterogeneous pulmonary groundglass and consolidative opacities most likely represents an infectious/inflammatory process, including atypical viral pneumonia. 3. Mild pulmonary interstitial edema. No pleural effusions. 4. Cardiomegaly stable. 5. Borderline mediastinal adenopathy. 6. Follow-up CT chest imaging in 3-6 months is advised to document these pulmonary opacities resolved to exclude an underlying neoplastic process. Electronically signed by: Martinez Scott MD (03/23/2021 11:11 PM) [facility] (JUSTIN ROMERO DO) Course & Med Decision Making: Course & Med Decision Making Pertinent Labs and Imaging studies reviewed. (See chart for details) Patient is 66-year-old female with history of CAD s/p CABG, CHF on home O2 who presents with increasing shortness of breath and chest pain. On arrival is afebrile, hypertensive, satting in the 90s on home O2 (2-3 L/min nasal cannula). She does have mild increased work of breathing, and significant lower extremity edema R>L Ddx includes: chf exacerbation PE RLE DVT pneumonia covid ACS, Heart score prior to troponin is 6. Will likely require further coronary work up. Work up initiated with EKG, troponin, BNP, cxr, dimer, RLE US. At time of sign out to oncoming physician, Dr. Romero, majority of work up and ultimate disposition is pending. (ZULMA SANTOYO MD) Course & Med Decision Making 1800- Sign out received from Dr. Santoyo for patient with report of dyspnea and chest pain. BNP elevated. Anemia baseline. Patient also with RLE edema > LLE. Patient pending CXR and RLE venous doppler and D-dimer testing. EKG stable. Troponin WNL. D-dimer elevated. CXR with concern for vascular congestion vs atypical pneumonia. Rapid COVID testing negative. Patient with poor venous access despite multiple RN attempts. Bedside venous US utilized with placement of 18g angiocath to left upper arm to obtain CTA chest. CTA chest negative for PE but continued vascular congestion vs ground glass opacities noted. COVID PCR pending. Bumex previously ordered. Patient requiring admission for further evaluation and treatment. Discussed with (hospitalist) who is in agreement with admission. Discussed findings and plan with patient, who acknowledges understanding and agreement. Patient requiring admission for further evaluation and treatment. Discussed with Dr. Macias (hospitalist) who is in agreement with admission. Discussed findings and plan with patient, who acknowledges understanding and agreement. COVID-19 CRITERIA: The patient was evaluated during the global COVID-19 [facility], and that diagnosis was suspected/considered upon their initial presentation. Their evaluation, treatment and testing was consistent with current guidelines for patients who present with complaints or symptoms that may be related to COVID-19. (JUSTIN ROMERO DO) Dragon Disclaimer: Dragon Disclaimer: This electronic medical record was generated, in whole or in part, using a voice recognition dictation system. (ZULMA SANTOYO MD) Additional Procedures Progress Peripheral IV access by physician under bedside ultrasound visualization: Verbal consent obtained. Time out performed. Hand hygiene utilized. Tourniquet placed to left upper arm. Visualization of hypoechoic, compressible, oval- shaped, nonpulsatile, vessel found with utilization of bedside ultrasound guidance. Wound cleaned with ChloraPrep. Needlestick attempted x3 with last attempt successful to left upper medial arm with a long 20-gauge Angiocath. Angiocath secured in place with Tegaderm and tape. Patient tolerated procedure well and without difficulty. (JUSTIN ROMERO DO) Departure Departure Impression: Primary Impression: CHF exacerbation Qualified Codes: I50.9 - Heart failure, unspecified Additional Impression: Elevated d-dimer Disposition: ADMITTED INPATIENT Admitting Physician: MAGNUS Colin) (JUSTIN ROMERO DO) Condition: STABLE Referrals: UNKNOWN PCP NAME (PCP) COVID-19 Assessment: COVID-19 Patient Risks: Age 65 or older: Yes Sign of co-morbidity: Yes Exp to person + for COVID: No Exp to PUI: No Travel from affected area: No Lower respiratory symptoms: Yes Fever: No Other: No (JUSTIN ROMERO DO) PPE Use: Full PPE with N95 mask or PAPR: Yes (JUSTIN ROMERO DO) ZULMA SANTOYO MD Mar 23, 2021 17:56 JUSTIN ROMERO DO Mar 23, 2021 19:31
[2021-03-23] MEDS ORDERED: ASPIRIN CHEWABLE 81 MG TABLET. PO ONE (18:00)
--- NOTE | 2021-03-23 18:06 | RAD ---
EXAMINATION: Chest radiograph. VIEWS: Single AP view of the chest COMPARISON: 03/01/2021 INDICATION:66 years, Female, weight gain. FINDINGS: Stable moderately enlarged cardiomediastinal silhouette. Left chest cardiac generator unchanged in po sition. Median sternotomy wires. Increased indistinct central pulmonary vasculature. Overall similar bilateral perihilar and right lung base hazy opacity. No pleural effusion or pneumothorax. No acute o sseous process. IMPRESSION: Overall similar findings favoring moderate interstitial pulmonary edema and/or pneumonia. Electronically signed by: Ben Akbar DO (03/23/2021 6:03 PM) [facility]
[2021-03-23] MEDS ORDERED: BUMETANIDE 2.5 MG/10 ML VIAL. IV ONE (18:30)
[2021-03-23 18:33] LABS: BASO % 1 % (0-3); EOS % 0 % (0-3); HEMATOCRIT 31.2 % (36.0-47.0); LYMPH # 0.7 x10^3/uL (1.0-4.8); LYMPH % 9 % (24-48); MEAN CORPUSCULAR HEMOGLOBIN 28 pg (25-35); MEAN CORPUSCULAR HGB CONC 32 g/dL (31-37); MEAN CORPUSCULAR VOLUME 88 fL (79-100); MONO # 0.6 x10^3/uL (0.0-1.1); MONO % 8 % (0-9); NEUT # 5.9 x10^3/uL (1.8-7.7); NEUT % 82 % (31-73); PLATELET COUNT 214 x10^3/uL (140-400); RED BLOOD COUNT 3.53 x10^6/uL (3.50-5.40); RED CELL DISTRIBUTION WIDTH 16.9 % (11.5-14.5); WHITE BLOOD COUNT 7.2 x10^3/uL (4.0-11.0)
[2021-03-23 18:48] LABS: BLOOD UREA NITROGEN 18 mg/dL (7-20); BUN/CREATININE RATIO 23 (6-20); CALCIUM 9.6 mg/dL (8.5-10.1); CARBON DIOXIDE 41 mmol/L (21-32); CHLORIDE 100 mmol/L (98-107); CREATININE 0.8 mg/dL (0.6-1.0); GFR 86.6; GLUCOSE 98 mg/dL (70-99); POTASSIUM 4.1 mmol/L (3.5-5.1); SODIUM 140 mmol/L (136-145)
[2021-03-23 18:54] LABS: ALBUMIN 3.5 g/dL (3.4-5.0); ALBUMIN/GLOBULIN RATIO 0.7 (1.0-1.7); ALK PHOS 91 U/L (46-116); ALT (SGPT) 18 U/L (14-59); AST (SGOT) 12 U/L (15-37); TOTAL BILIRUBIN 0.6 mg/dL (0.2-1.0); TOTAL PROTEIN 8.4 g/dL (6.4-8.2)
--- NOTE | 2021-03-23 20:22 | RAD ---
EXAMINATION: US DPLX VENOUS EXTREMITY LOWER RT INDICATION: Reason: increased swelling, TECH NOTIFIED / Spl. Instructions: / History: COMPARISONS: None TECHNIQUE: Grayscale, color and spectral Doppler evaluation of the right lower extremity deep venous system(s) was performed. FINDINGS: right common femoral, femoral and popliteal veins are normally compressible and demonstrate normally directed and appropriately phasic flow with augmentation. Normal flow is present within the saphenofemoral junctions and deep femoral veins in the proximal thi ghs and the posterior tibial and peroneal veins in the proximal calves. IMPRESSION: No evidence of deep venous thrombosis in the right lower extremity. Electronically signed by: Ben Akbar DO (03/23/2021 8:20 PM) [facility]
[2021-03-23] MEDS ORDERED: DEXTROSE 50% 25 GM / 50ML DISP.SYRIN. IV PRN (21:45)
[2021-03-23] MEDS ORDERED: fentaNYL PF VIAL 100 MCG/2 ML VIAL IVP PRN (21:45)
[2021-03-23] MEDS ORDERED: ONDANSETRON PF 4 MG/2 ML VIAL. IVP PRN (21:45)
[2021-03-23] MEDS ORDERED: oxyCODONE/APAP 10/325 1 TAB TABLET PO ONE (22:00)
[2021-03-23] MEDS ORDERED: ONDANSETRON ODT 4 MG TAB.RAPDIS. PO ONE (22:00)
[2021-03-23] MEDS ORDERED: CONTRAST GIVEN. MC PRN (22:15)
[2021-03-23] MEDS ORDERED: IOHEXOL 350 MG/ML 100 ML VIAL. IV ONE (22:30)
--- NOTE | 2021-03-23 23:13 | RAD ---
CT angiography chest with contrast PQRS statement: CT scans at this facility use dose reduction including either automated exposure cont rol, iterative reconstructions, and /or weight based radiation dosing via mA and kV modification when appropriate to reduce radiation dose to as low as reasonably achievable. HISTORY: Shortness of breath, elevated d-dimer, pulmonary nodules. Contrast: 100 mL Omnipaque 350 intravenous contrast with 3-D MIP reconstructions of the arteries are. COMPARISON: CT chest March 03, 2020 FINDINGS: Extensive calcified plaque are present thoracic aorta. Postoperative changes of coronary ar elpidio bypass. Cardiomegaly. Surface irregularity of the liver may represent cirrhosis. 3 x 1 cm left s upraumbilical ventral abdominal wall fatty hernia extends outside the [id number]. Esophagus is nor mal. Borderline enlarged paratracheal mediastinal lymph nodes measuring up to 1 cm. Cardiac pacemaker . No pulmonary artery emboli. Trachea and bronchi are unremarkable. There are bilateral heterogeneous groundglass and consolidative pulmonary opacities of both the upper and lower lung zones. No pleural effusions. There is still present interstitial thickening likely edema. IMPRESSION: 1. No pulmonary emboli. 2. Bilateral heterogeneous pulmonary groundglass and consolidative opacities most likely represents a n infectious/inflammatory process, including atypical viral pneumonia. 3. Mild pulmonary interstitial edema. No pleural effusions. 4. Cardiomegaly stable. 5. Borderline mediastinal adenopathy. 6. Follow-up CT chest imaging in 3-6 months is advised to document these pulmonary opacities resolved to exclude an underlying neoplastic process. Electronically signed by: Martinez Scott MD (03/23/2021 11:11 PM) [facility]
[2021-03-24] VITALS (7 sets, daily range): BP systolic 143–169; BP diastolic 53–79
[2021-03-24] MEDS ORDERED: oxyCODONE/APAP 10/325 1 TAB TABLET PO PRN (01:15)
[2021-03-24] MEDS ORDERED: OXYC1TAB22 PO (01:32)
[2021-03-24] MEDS: oxyCODONE/APAP 10/325 1 TAB TABLET PO PRN ×5 (01:57→21:26)
[2021-03-24] MEDS ORDERED: ZOLP10TA PO (02:25)
[2021-03-24] MEDS ORDERED: BUME2TAB3 PO (02:31)
[2021-03-24] MEDS ORDERED: ISOS60TA55 PO (02:32)
[2021-03-24] MEDS ORDERED: SPIR25TA5 PO (02:35)
[2021-03-24] MEDS ORDERED: OXYC1TAB20 PO (02:37)
[2021-03-24] MEDS ORDERED: PANT40TA6 PO (02:39)
--- NOTE | 2021-03-24 02:56 | EKG ---
[facility] [address] [place] [address] Test Date: 2021-03-23 Test Time: 18:00:18 Pat Name: GRETCHEN BONILLA Department: Room: [facility] Gender: F Planning Analyst: : 1955 Requested By: ZULMA SANTOYO Order Number: [id number] Reading MD: Roger Aggarwal Measurements Intervals [place] Rate: 56 P: ME: QRS: 267 QRSD: 156 T: 59 QT: 462 QTc: 449 Interpretive Statements ATRIAL PACED RHYTHM ABNORMAL RIGHT SUPERIOR AXIS DEVIATION LOW LIMB LEAD VOLTAGE RIGHT BUNDLE BRANCH BLOCK ABNORMAL ECG Electronically Signed On 03-25-2021 10:21:40 [employer] by Roger Aggarwal
[2021-03-24] MEDS ORDERED: TRAZ-123 PO (05:47)
[2021-03-24] MEDS ORDERED: SITA50TA PO (05:47)
[2021-03-24] MEDS ORDERED: CARV6.253 PO (05:47)
[2021-03-24] MEDS ORDERED: INSU100I13 SQ (05:47)
[2021-03-24] MEDS ORDERED: HYDR-2869 PO (05:47)
[2021-03-24] MEDS ORDERED: EMPA10TA PO (05:47)
[2021-03-24] MEDS: INSULIN LISPRO 300 UNITS/3 ML VIAL. SQ SCH ×5 (08:00→17:11)
--- NOTE | 2021-03-24 09:51 | PDOC1 ---
History and Physical Date of Service: DOS: DATE: 03/24/21 TIME: 09:38 Chief Complaint: Chief Complain: Shortness of breath History of Present Illness: HPI: 66-year-old female with past medical history of atrial fibrillation, CHF, CAD status post CABG who comes in with chest pressure and shortness of breath that started around [place] time. Progressively worsening. She does have exertional shortness of breath. She wears 2 to 3 L of oxygen at home. She also thinks she gained about 11 kg over the past month. Endorses bilateral lower extremity swelling. Patient is on diuretics at home. Vaccinated for Covid. Denies fever, chills, cough, runny nose, sore throat, sputum production. No sick contacts or covid contacts. Past Medical/Surgical History: PMH/PSH: Past Medical History: CHF, COPD, Diabetes-Type II, High Cholesterol, Hypertension, IN, O2 @ 2-3 L , chronic pain, NEUROPATHY Past Surgical History: Appendectomy, Cholecystectomy, Coronary Bypass Surgery, Hysterectomy, Knee Replacement, HERNIA REPAIR, CABG X 2 VESSELS 2014; breast reduction; L knee Allergies: Allergies: Coded Allergies: No Known Drug Allergies (Unverified , 03/23/21) Family History: Family History: Reviewed with no relevant findings in the chart Social History: Social History: Smoking Status: Never Smoker Alcohol Use: None Drug Use: None Current Medications: Current Medications Current Medications Aspirin (Aspirin Chewable) 324 mg 1X ONCE PO Last administered on 03/23/21at 18:53; Start 03/23/21 at 18:00; Stop 03/23/21 at 18:01; Status DC Bumetanide (Bumex) 2.5 mg 1X ONCE IV Last administered on 03/23/21at 23:47; Start 03/23/21 at 18:30; Stop 03/23/21 at 18:31; Status DC Oxycodone/ Acetaminophen (Percocet 10/325) 1 tab 1X ONCE PO Last administered on 03/23/21at 21:32; Start 03/23/21 at 22:00; Stop 03/23/21 at 22:01; Status DC Ondansetron HCl (Zofran Odt) 4 mg 1X ONCE PO Last administered on 03/23/21at 21:32; Start 03/23/21 at 22:00; Stop 03/23/21 at 22:01; Status DC Ondansetron HCl (Zofran) 4 mg PRN Q8HRS PRN IVP NAUSEA/VOMITING 1ST CHOICE; Start 03/23/21 at 21:45; Stop 03/24/21 at 21:44 Fentanyl Citrate (Fentanyl 2ml Vial) 50 mcg PRN Q2HRS PRN IVP SEVERE PAIN 7-10; Start 03/23/21 at 21:45 Insulin Human Lispro (HumaLOG) 0-5 UNITS TIDWMEALS SQ ; Start 03/24/21 at 08:00 Dextrose (Dextrose 50%-Water Syringe) 12.5 gm PRN Q15MIN PRN IV SEE COMMENTS; Start 03/23/21 at 21:45 Iohexol (Omnipaque 350 Mg/ml) 100 ml 1X ONCE IV Last administered on 03/23/21at 22:52; Start 03/23/21 at 22:30; Stop 03/23/21 at 22:31; Status DC Info (CONTRAST GIVEN -- Rx MONITORING) 1 each PRN DAILY PRN MC SEE COMMENTS; Start 03/23/21 at 22:15; Stop 03/25/21 at 22:14 Oxycodone/ Acetaminophen (Percocet 10/325) 2 tab PRN Q6HRS PRN PO MODERATE TO SEVERE PAIN; Start 03/24/21 at 01:15; Status Cancel Oxycodone/ Acetaminophen (Percocet 10/325) 1 tab PRN Q4HRS PRN PO SEVERE PAIN 7-10 Last administered on 03/24/21at 05:40; Start 03/24/21 at 01:45 Active Scripts Active Protonix (Pantoprazole Sodium) 40 Mg Tablet.dr 40 Mg PO DAILYAC 60 Days Reported Lantus Solostar (Insulin Glargine,Hum.rec.anlog) 100 Unit/1 Ml Insuln.pen 8 Unit SQ QHS Carvedilol 6.25 Mg Tablet 1 Tab PO BID Trazodone Hcl 100 Mg Tablet 1 Tab PO QHS Hydralazine Hcl 50 Mg Tablet 1 Tab PO TID Januvia (Sitagliptin Phosphate) 50 Mg Tablet 1 Tab PO DAILY Jardiance (Empagliflozin) 10 Mg Tablet 1 Tab PO DAILY Spironolactone 25 Mg Tablet 1 Tab PO DAILY Isosorbide Mononitrate Er (Isosorbide Mononitrate) 60 Mg Tab.er.24h 1 Tab PO DAILY Bumetanide 2 Mg Tablet 2 Mg PO DAILY Ambien (Zolpidem Tartrate) 10 Mg Tablet 10 Mg PO PRN QHS PRN Percocet 10-325 Mg Tablet (Oxycodone/Acetaminophen) 1 Each Tablet 1 Tab PO PRN Q4HRS PRN MDD 6 Tablet(s) 5 Days Amlodipine Besylate 5 Mg Tablet 5 Mg PO DAILY Humalog (Insulin Lispro) 100 Unit/1 Ml Vial 8 Unit SQ TIDAC Ventolin Hfa Inhaler (Albuterol Sulfate) 18 Gm Hfa.aer.ad 2 Puff INH [id number] Potassium Chloride (Potassium Chloride) 20 Meq Tablet.er 20 Meq PO BIDWMEALS Carvedilol 25 Mg Tablet 12.5 Mg PO BIDWMEALS Clopidogrel (Clopidogrel Bisulfate) 75 Mg Tablet 75 Mg PO DAILY Losartan Potassium 100 Mg Tablet 100 Mg PO DAILY Calcium 500 + Vit D 200 Caplet (Calcium Carbonate/Vitamin D3) 1 Each Tablet 1 Each PO DAILY Fluoxetine Hcl 20 Mg Capsule 1 Cap PO DAILY Atorvastatin Calcium 20 Mg Tablet 20 Mg PO HS Aspir 81 (Aspirin) 81 Mg Tablet. 1 Tab PO DAILY ROS: Review of Systems Review of System REVIEW OF SYSTEMS: GENERAL: Denies weakness SKIN: No bruising, hair changes or rashes. EYES: No blurred, double or loss of vision. NOSE AND THROAT: No history of nosebleeds, hoarseness or sore throat. HEART: No history of palpitations, chest pain or shortness of breath on exertion. LUNGS: Positive for shortness of breath GASTROINTESTINAL: Denies changes in appetite, nausea, vomiting, diarrhea or constipation. GENITOURINARY: No history of frequency, urgency, hesitancy or nocturia. NEUROLOGIC: Denies history of numbness, tingling, or tremor. PSYCHIATRIC: No history of panic, anxiety or depression. ENDOCRINE: No history of heat or cold intolerance, polyuria or polydipsia. EXTREMITIES: Denies joint pain, pain on walking or stiffness. Physical Exam: Vital Signs: Vital Signs Date Time Temp Pulse Resp B/P (MAP) Pulse Ox O2 Delivery O2 Flow Rate FiO2 03/24/21 06:44 98.5 65 21 154/53 (86) 93 Nasal Cannula 3.0 98.5 Physcial Exam: General: Well developed, well nourished, no acute distress, well appearing HEENT: Pupils equally round and reactive to light, EOMI, no discharge, normal conjunctiva Neck: Supple, no nuchal rigidity, no JVD, trachea midline, no tenderness Cardiac: RRR, no murmurs, no gallops, no rubs Chest/Lungs: CTAB but diminished throughout all lung tripp, Increased work of breathing, mild tachypnea, prolonged expiratory phase Abdomen: Obese, soft, non-distended, no guarding, no peritoneal signs, non- tender Back: No tenderness Extremities: no edema, pulses intact, non-tender,capillary refill <3 sec bilateral upper and lower extremities, Neuro: Alert and oriented x 4, no focal deficits, normal speech Labs: Labs: Laboratory Tests Test 03/23/21 18:20 03/23/21 20:50 03/24/21 00:02 03/24/21 07:46 White Blood Count 7.2 x10^3/uL (4.0-11.0) Red Blood Count 3.53 x10^6/uL (3.50-5.40) Hemoglobin 10.0 g/dL (12.0-15.5) Hematocrit 31.2 % (36.0-47.0) Mean Corpuscular Volume 88 fL (79-100) Mean Corpuscular Hemoglobin 28 pg (25-35) Mean Corpuscular Hemoglobin Concent 32 g/dL (31-37) Red Cell Distribution Width 16.9 % (11.5-14.5) Platelet Count 214 x10^3/uL (140-400) Neutrophils (%) (Auto) 82 % (31-73) Lymphocytes (%) (Auto) 9 % (24-48) Monocytes (%) (Auto) 8 % (0-9) Eosinophils (%) (Auto) 0 % (0-3) Basophils (%) (Auto) 1 % (0-3) Neutrophils # (Auto) 5.9 x10^3/uL (1.8-7.7) Lymphocytes # (Auto) 0.7 x10^3/uL (1.0-4.8) Monocytes # (Auto) 0.6 x10^3/uL (0.0-1.1) Eosinophils # (Auto) 0.0 x10^3/uL (0.0-0.7) Basophils # (Auto) 0.0 x10^3/uL (0.0-0.2) Sodium Level 140 mmol/L (136-145) Potassium Level 4.1 mmol/L (3.5-5.1) Chloride Level 100 mmol/L (98-107) Carbon Dioxide Level 41 mmol/L (21-32) Anion Gap (6-14) Blood Urea Nitrogen 18 mg/dL (7-20) Creatinine 0.8 mg/dL (0.6-1.0) Estimated GFR (Cockcroft-Gault) 86.6 BUN/Creatinine Ratio 23 (6-20) Glucose Level 98 mg/dL (70-99) Calcium Level 9.6 mg/dL (8.5-10.1) Total Bilirubin 0.6 mg/dL (0.2-1.0) Aspartate Amino Transf (AST/SGOT) 12 U/L (15-37) Alanine Aminotransferase (ALT/SGPT) 18 U/L (14-59) Alkaline Phosphatase 91 U/L (46-116) Troponin I High Sensitivity 16 ng/L (4-50) 17 ng/L (4-50) QP-Dsh-E-Type Natriuretic Peptide 2260 pg/mL (0-124) Total Protein 8.4 g/dL (6.4-8.2) Albumin 3.5 g/dL (3.4-5.0) Albumin/Globulin Ratio 0.7 (1.0-1.7) SARS-CoV-2 Antigen (Rapid) Negative (NEGATIVE) D-Dimer (Anila) 1.04 ug/mlFEU (0.00-0.50) Glucose (Fingerstick) 133 mg/dL (70-99) Laboratory Tests Test 03/23/21 18:20 03/23/21 20:50 03/24/21 00:02 03/24/21 07:46 White Blood Count 7.2 x10^3/uL (4.0-11.0) Red Blood Count 3.53 x10^6/uL (3.50-5.40) Hemoglobin 10.0 g/dL (12.0-15.5) Hematocrit 31.2 % (36.0-47.0) Mean Corpuscular Volume 88 fL (79-100) Mean Corpuscular Hemoglobin 28 pg (25-35) Mean Corpuscular Hemoglobin Concent 32 g/dL (31-37) Red Cell Distribution Width 16.9 % (11.5-14.5) Platelet Count 214 x10^3/uL (140-400) Neutrophils (%) (Auto) 82 % (31-73) Lymphocytes (%) (Auto) 9 % (24-48) Monocytes (%) (Auto) 8 % (0-9) Eosinophils (%) (Auto) 0 % (0-3) Basophils (%) (Auto) 1 % (0-3) Neutrophils # (Auto) 5.9 x10^3/uL (1.8-7.7) Lymphocytes # (Auto) 0.7 x10^3/uL (1.0-4.8) Monocytes # (Auto) 0.6 x10^3/uL (0.0-1.1) Eosinophils # (Auto) 0.0 x10^3/uL (0.0-0.7) Basophils # (Auto) 0.0 x10^3/uL (0.0-0.2) Sodium Level 140 mmol/L (136-145) Potassium Level 4.1 mmol/L (3.5-5.1) Chloride Level 100 mmol/L (98-107) Carbon Dioxide Level 41 mmol/L (21-32) Anion Gap (6-14) Blood Urea Nitrogen 18 mg/dL (7-20) Creatinine 0.8 mg/dL (0.6-1.0) Estimated GFR (Cockcroft-Gault) 86.6 BUN/Creatinine Ratio 23 (6-20) Glucose Level 98 mg/dL (70-99) Calcium Level 9.6 mg/dL (8.5-10.1) Total Bilirubin 0.6 mg/dL (0.2-1.0) Aspartate Amino Transf (AST/SGOT) 12 U/L (15-37) Alanine Aminotransferase (ALT/SGPT) 18 U/L (14-59) Alkaline Phosphatase 91 U/L (46-116) Troponin I High Sensitivity 16 ng/L (4-50) 17 ng/L (4-50) YV-Vzy-N-Type Natriuretic Peptide 2260 pg/mL (0-124) Total Protein 8.4 g/dL (6.4-8.2) Albumin 3.5 g/dL (3.4-5.0) Albumin/Globulin Ratio 0.7 (1.0-1.7) SARS-CoV-2 Antigen (Rapid) Negative (NEGATIVE) D-Dimer (Anila) 1.04 ug/mlFEU (0.00-0.50) Glucose (Fingerstick) 133 mg/dL (70-99) Images: Images PROCEDURE: CHEST AP ONLY IMPRESSION: Overall similar findings favoring moderate interstitial pulmonary edema and/or pneumonia. PROCEDURE: CT ANGIOGRAPHY CHEST CT angiography chest with contrast PQRS statement: CT scans at this facility use dose reduction including either automated exposure control, iterative reconstructions, and /or weight based radiation dosing via mA and kV modification when appropriate to reduce radiation dose to as low as reasonably achievable. HISTORY: Shortness of breath, elevated d-dimer, pulmonary nodules. Contrast: 100 mL Omnipaque 350 intravenous contrast with 3-D MIP reconstructions of the arteries are. COMPARISON: CT chest March 03, 2020 FINDINGS: Extensive calcified plaque are present thoracic aorta. Postoperative changes of coronary artery bypass. Cardiomegaly. Surface irregularity of the liver may represent cirrhosis. 3 x 1 cm left supraumbilical ventral abdominal wall fatty hernia extends outside the [id number]. Esophagus is normal. Borderline enlarged paratracheal mediastinal lymph nodes measuring up to 1 cm. Cardiac pacemaker. No pulmonary artery emboli. Trachea and bronchi are unremarkable. There are bilateral heterogeneous groundglass and consolidative pulmonary opacities of both the upper and lower lung zones. No pleural effusions. There is still present interstitial thickening likely edema. IMPRESSION: 1. No pulmonary emboli. 2. Bilateral heterogeneous pulmonary groundglass and consolidative opacities most likely represents an infectious/inflammatory process, including atypical viral pneumonia. 3. Mild pulmonary interstitial edema. No pleural effusions. 4. Cardiomegaly stable. 5. Borderline mediastinal adenopathy. 6. Follow-up CT chest imaging in 3-6 months is advised to document these pulmonary opacities resolved to exclude an underlying neoplastic process. Assessment/Plan Assessment/Plan Acute hypoxic respiratory distress due to COPD exacerbation Hypertensive urgency Anemia of chronic disease Elevated BNP likely due to chronic hypoxia Morbid obesity History of diabetes mellitus type 2 History of hypertension History of CABG, heart score 6 Strong cardiac family history Admit to medicine for further management Pulmonology consult Albuterol nebulizer treatments every 6 hours as needed IV Solu-Medrol x3 days IV antihypertensive regimen to maintain systolic blood pressure between 140-180 while admitted Lovenox for DVT prophylaxis Protonix while on steroids GI prophylaxis ADA diet Full code Discussed with RN and SW Disposition inpatient management as above Surrogate decision maker is Jessica Santamaria In addition to my E/M visit, advance care planning done with A total time of 20 minutes was spent from 830 to 850 face to face in discussion regarding the patient's goals of care, CODE STATUS. Justifications for Admission Other Justification DEIDRE WELLINGTON MD Mar 24, 2021 09:51
[2021-03-24] MEDS ORDERED: diphenhydrAMINE 50 MG/ML VIAL IVP PRN (10:00)
[2021-03-24] MEDS ORDERED: ACETAMINOPHEN 325 MG TABLET. PO PRN (10:00)
[2021-03-24] MEDS ORDERED: SENNOSIDES 8.6 MG TABLET PO PRN (10:00)
[2021-03-24] MEDS ORDERED: DEXTROSE 50% 25 GM / 50ML DISP.SYRIN. IV PRN (10:00)
[2021-03-24] MEDS ORDERED: diphenhydrAMINE HCL 25 MG CAPSULE PO PRN ×2 (10:00)
[2021-03-24] MEDS ORDERED: PROCHLORPERAZINE 10 MG/2 ML VIAL. IV PRN (10:00)
[2021-03-24] MEDS ORDERED: ONDANSETRON PF 4 MG/2 ML VIAL. IVP PRN (10:00)
[2021-03-24] MEDS ORDERED: LORazepam 0.5 MG TABLET PO PRN (10:00)
[2021-03-24] MEDS ORDERED: DOCUSATE SODIUM 100 MG CAPSULE. PO PRN (10:00)
[2021-03-24] MEDS: ENOXAPARIN 40 MG/0.4 ML SYRINGE. SQ SCH (10:51)
[2021-03-24] MEDS: methylPREDNISolone SOD SUCC PF 40 MG/ML VIAL. IV SCH ×3 (10:51→21:27)
[2021-03-24] MEDS: CLOPIDOGREL BISULFATE 75 MG TABLET PO SCH (13:40)
[2021-03-24] MEDS: ISOSORBIDE MONONITRATE ER 30 MG TAB.ER.24H PO SCH (13:41)
[2021-03-24] MEDS: ASPIRIN ENTERIC COATED 81 MG TABLET.DR. PO SCH (13:41)
[2021-03-24] MEDS: FLUoxetine HCL 20 MG CAPSULE PO SCH (13:41)
[2021-03-24] MEDS: LOSARTAN POTASSIUM 50 MG TABLET. PO SCH (13:41)
[2021-03-24] MEDS: CALCIUM CARB/VIT D3 500/200 TABLET. PO SCH (13:41)
[2021-03-24] MEDS: PANTOPRAZOLE 40 MG TABLET.DR. PO SCH (13:41)
--- NOTE | 2021-03-24 15:42 | PDOC2 ---
CONSULT Date of Consult Date of Consult DATE: 03/24/21 TIME: 15:34 Reason for Consult Reason for Consult: Heart failure, bypass surgery, pacemaker Referring Physician Referring Physician: Dr. Aguirre Identification/Chief Complaint Chief Complaint Shortness of breath Source Source: Chart review, Patient History of Present Illness Reason for Visit: The patient is a 66-year-old female who was admitted through the emergency room for 4 to 5 days of increasing shortness of breath. The patient has an extensive medical history and from a cardiac viewpoint this includes previous bypass surgery, pacemaker and a previous myocardial infarction. The patient's initial EKG showed an atrially paced rhythm with no acute ischemic changes. Troponins overnight have been normal at 16, 17 and 18. BNP is elevated at 2260. A chest x-ray showed moderate interstitial edema. CT scan chest scan showed no pulmonary emboli with bilateral pulmonary groundglass opacities. A right lower extremity venous ultrasound showed no DVT. The patient been treated overnight for COPD exacerbation and heart failure and reports feeling better today. Past Medical History Cardiovascular: CAD, CHF, HTN, VT, Hyperlipidemia, Other Pulmonary: Bronchitis, COPD CENTRAL NERVOUS SYSTEM: Periperal neuropathy GI: GERD Heme/Onc: No pertinent hx Hepatobiliary: Cholelithiasis Psych: No pertinent hx Musculoskeletal: Osteoarthritis, Weakness Rheumatologic: No pertinent hx Infectious disease: No pertinent hx Renal/: Chronic renal insuff Endocrine: Diabetes Past Surgical History Past Surgical History: Pacemaker, Appendectomy, Cholecystectomy, CABG, Total knee replacement, Hysterectomy Family History Family History: Hypertension Social History No ALCOHOL: none Drugs: None Lives: with Family Current Problem List Problem List Problems Medical Problems: (1) Chest pain Status: Acute (2) Elevated d-dimer Status: Acute Current Medications Current Medications Current Medications Aspirin (Aspirin Chewable) 324 mg 1X ONCE PO Last administered on 03/23/21at 18:53; Start 03/23/21 at 18:00; Stop 03/23/21 at 18:01; Status DC Bumetanide (Bumex) 2.5 mg 1X ONCE IV Last administered on 03/23/21at 23:47; Start 03/23/21 at 18:30; Stop 03/23/21 at 18:31; Status DC Oxycodone/ Acetaminophen (Percocet 10/325) 1 tab 1X ONCE PO Last administered on 03/23/21at 21:32; Start 03/23/21 at 22:00; Stop 03/23/21 at 22:01; Status DC Ondansetron HCl (Zofran Odt) 4 mg 1X ONCE PO Last administered on 03/23/21at 21:32; Start 03/23/21 at 22:00; Stop 03/23/21 at 22:01; Status DC Ondansetron HCl (Zofran) 4 mg PRN Q8HRS PRN IVP NAUSEA/VOMITING 1ST CHOICE; Start 03/23/21 at 21:45; Stop 03/24/21 at 09:56; Status DC Fentanyl Citrate (Fentanyl 2ml Vial) 50 mcg PRN Q2HRS PRN IVP SEVERE PAIN 7-10; Start 03/23/21 at 21:45 Insulin Human Lispro (HumaLOG) 0-5 UNITS TIDWMEALS SQ ; Start 03/24/21 at 08:00; Stop 03/24/21 at 13:19; Status DC Dextrose (Dextrose 50%-Water Syringe) 12.5 gm PRN Q15MIN PRN IV SEE COMMENTS; Start 03/23/21 at 21:45; Stop 03/24/21 at 09:57; Status DC Iohexol (Omnipaque 350 Mg/ml) 100 ml 1X ONCE IV Last administered on 03/23/21at 22:52; Start 03/23/21 at 22:30; Stop 03/23/21 at 22:31; Status DC Info (CONTRAST GIVEN -- Rx MONITORING) 1 each PRN DAILY PRN MC SEE COMMENTS; Start 03/23/21 at 22:15; Stop 03/25/21 at 22:14 Oxycodone/ Acetaminophen (Percocet 10/325) 2 tab PRN Q6HRS PRN PO MODERATE TO SEVERE PAIN; Start 03/24/21 at 01:15; Status Cancel Oxycodone/ Acetaminophen (Percocet 10/325) 1 tab PRN Q4HRS PRN PO SEVERE PAIN 7-10 Last administered on 03/24/21at 10:50; Start 03/24/21 at 01:45 Methylprednisolone Sodium Succinate (SOLU-Medrol 40MG VIAL) 40 mg Q8HRS IV Last administered on 03/24/21at 10:51; Start 03/24/21 at 10:30; Stop 03/27/21 at 10:29 Sennosides (Senna) 17.2 mg PRN BID PRN PO CONSTIPATION; Start 03/24/21 at 10:00 Docusate Sodium (Colace) 100 mg PRN DAILY PRN PO HARD STOOLS; Start 03/24/21 at 10:00 Ondansetron HCl (Zofran) 4 mg PRN Q6HRS PRN IVP NAUSEA/VOMITING; Start 03/24/21 at 10:00 Insulin Human Lispro (HumaLOG) 0-7 UNITS TIDWMEALS SQ ; Start 03/24/21 at 12:00 Dextrose (Dextrose 50%-Water Syringe) 12.5 gm PRN Q15MIN PRN IV SEE COMMENTS; Start 03/24/21 at 10:00 Acetaminophen (Tylenol) 650 mg PRN Q4HRS PRN PO TEMP OVER 100.4F OR MILD PAIN; Start 03/24/21 at 10:00 Lorazepam (Ativan) 0.5 mg PRN Q6HRS PRN PO ANXIETY / AGITATION; Start 03/24/21 at 10:00 Lorazepam (Ativan Inj) 0.25 mg PRN Q4HRS PRN IV ANXIETY / AGITATION; Start 03/24/21 at 10:00 Enoxaparin Sodium (Lovenox 40mg Syringe) 40 mg DAILY SQ Last administered on 03/24/21at 10:51; Start 03/24/21 at 10:30 Prochlorperazine Edisylate (Compazine) 10 mg PRN Q6HRS PRN IV NAUSEA/VOMITING; Start 03/24/21 at 10:00 Diphenhydramine HCl (Benadryl) 25 mg PRN Q6HRS PRN IVP ITCHING; Start 03/24/21 at 10:00 Diphenhydramine HCl (Benadryl) 25 mg PRN Q6HRS PRN PO ITCHING; Start 03/24/21 at 10:00 Diphenhydramine HCl (Benadryl) 25 mg PRN QHS PRN PO INSOMNIA; Start 03/24/21 at 10:00 Zolpidem Tartrate (Ambien) 2.5 mg PRN QHS PRN PO INSOMNIA; Start 03/24/21 at 10:00 Amlodipine Besylate (Norvasc) 5 mg DAILY PO Last administered on 03/24/21at 13:40; Start 03/24/21 at 14:00 Aspirin (Ecotrin) 81 mg DAILY PO Last administered on 03/24/21at 13:41; Start 03/24/21 at 14:00 Atorvastatin Calcium (Lipitor) 20 mg HS PO ; Start 03/24/21 at 21:00 Calcium/Vitamin D (Oscal D 500mg/ 200uts) 1 tab DAILY PO Last administered on 03/24/21at 13:41; Start 03/24/21 at 14:00 Carvedilol (Coreg) 6.25 mg BIDWMEALS PO ; Start 03/24/21 at 17:00 Clopidogrel Bisulfate (Plavix) 75 mg DAILY PO Last administered on 03/24/21at 13:40; Start 03/24/21 at 14:00 Fluoxetine HCl (PROzac) 20 mg DAILY PO Last administered on 03/24/21at 13:41; Start 03/24/21 at 14:00 Hydralazine HCl (Apresoline) 50 mg TID PO Last administered on 03/24/21at 13:40; Start 03/24/21 at 14:00 Insulin Human Lispro (HumaLOG) 8 units TIDAC SQ ; Start 03/24/21 at 16:30 Pantoprazole Sodium (Protonix) 40 mg DAILYAC PO Last administered on 03/24/21at 13:41; Start 03/24/21 at 14:00 Non-Formulary Medication (Empagliflozin (Jardiance)) 1 tab DAILY PO ; Start 03/25/21 at 09:00; Status UNV Insulin Glargine (Lantus Syringe) 8 unit QHS SQ ; Start 03/24/21 at 21:00 Isosorbide Mononitrate (Imdur) 60 mg DAILY PO Last administered on 03/24/21at 13:41; Start 03/24/21 at 14:00 Losartan Potassium (Cozaar) 100 mg DAILY PO Last administered on 03/24/21at 13:41; Start 03/24/21 at 14:00 Active Scripts Active Protonix (Pantoprazole Sodium) 40 Mg Tablet.dr 40 Mg PO DAILYAC 60 Days Reported Lantus Solostar (Insulin Glargine,Hum.rec.anlog) 100 Unit/1 Ml Insuln.pen 8 Unit SQ QHS Carvedilol 6.25 Mg Tablet 1 Tab PO BID Trazodone Hcl 100 Mg Tablet 1 Tab PO QHS Hydralazine Hcl 50 Mg Tablet 1 Tab PO TID Januvia (Sitagliptin Phosphate) 50 Mg Tablet 1 Tab PO DAILY Jardiance (Empagliflozin) 10 Mg Tablet 1 Tab PO DAILY Spironolactone 25 Mg Tablet 1 Tab PO DAILY Isosorbide Mononitrate Er (Isosorbide Mononitrate) 60 Mg Tab.er.24h 1 Tab PO DAILY Bumetanide 2 Mg Tablet 2 Mg PO DAILY Ambien (Zolpidem Tartrate) 10 Mg Tablet 10 Mg PO PRN QHS PRN Percocet 10-325 Mg Tablet (Oxycodone/Acetaminophen) 1 Each Tablet 1 Tab PO PRN Q4HRS PRN MDD 6 Tablet(s) 5 Days Amlodipine Besylate 5 Mg Tablet 5 Mg PO DAILY Humalog (Insulin Lispro) 100 Unit/1 Ml Vial 8 Unit SQ TIDAC Ventolin Hfa Inhaler (Albuterol Sulfate) 18 Gm Hfa.aer.ad 2 Puff INH O6HPASWN Potassium Chloride (Potassium Chloride) 20 Meq Tablet.er 20 Meq PO BIDWMEALS Carvedilol 25 Mg Tablet 12.5 Mg PO BIDWMEALS Clopidogrel (Clopidogrel Bisulfate) 75 Mg Tablet 75 Mg PO DAILY Losartan Potassium 100 Mg Tablet 100 Mg PO DAILY Calcium 500 + Vit D 200 Caplet (Calcium Carbonate/Vitamin D3) 1 Each Tablet 1 Each PO DAILY Fluoxetine Hcl 20 Mg Capsule 1 Cap PO DAILY Atorvastatin Calcium 20 Mg Tablet 20 Mg PO HS Aspir 81 (Aspirin) 81 Mg Tablet. 1 Tab PO DAILY Allergies Allergies: Coded Allergies: No Known Drug Allergies (Unverified , 03/23/21) ROS General: YES: Fatigue Respiratory: YES: Shortness of breath, SOB with excertion Cardiovascular: yes Chest Pain Physical Exam General: mild distress HEENT: Atraumatic Lungs: Other (Decreased breath sounds.) Heart: Other (Irregularly irregular) Abdomen: Normal bowel sounds Vitals VITALS Vital Signs Date Time Temp Pulse Resp B/P (MAP) Pulse Ox O2 Delivery O2 Flow Rate FiO2 03/24/21 13:41 70 161/62 03/24/21 11:20 93 Nasal Cannula 2.0 03/24/21 11:00 99.3 18 99.3 Labs Labs Laboratory Tests Test 03/23/21 18:20 03/23/21 20:50 03/24/21 00:02 03/24/21 07:46 White Blood Count 7.2 x10^3/uL (4.0-11.0) Red Blood Count 3.53 x10^6/uL (3.50-5.40) Hemoglobin 10.0 g/dL (12.0-15.5) Hematocrit 31.2 % (36.0-47.0) Mean Corpuscular Volume 88 fL (79-100) Mean Corpuscular Hemoglobin 28 pg (25-35) Mean Corpuscular Hemoglobin Concent 32 g/dL (31-37) Red Cell Distribution Width 16.9 % (11.5-14.5) Platelet Count 214 x10^3/uL (140-400) Neutrophils (%) (Auto) 82 % (31-73) Lymphocytes (%) (Auto) 9 % (24-48) Monocytes (%) (Auto) 8 % (0-9) Eosinophils (%) (Auto) 0 % (0-3) Basophils (%) (Auto) 1 % (0-3) Neutrophils # (Auto) 5.9 x10^3/uL (1.8-7.7) Lymphocytes # (Auto) 0.7 x10^3/uL (1.0-4.8) Monocytes # (Auto) 0.6 x10^3/uL (0.0-1.1) Eosinophils # (Auto) 0.0 x10^3/uL (0.0-0.7) Basophils # (Auto) 0.0 x10^3/uL (0.0-0.2) Sodium Level 140 mmol/L (136-145) Potassium Level 4.1 mmol/L (3.5-5.1) Chloride Level 100 mmol/L (98-107) Carbon Dioxide Level 41 mmol/L (21-32) Anion Gap (6-14) Blood Urea Nitrogen 18 mg/dL (7-20) Creatinine 0.8 mg/dL (0.6-1.0) Estimated GFR (Cockcroft-Gault) 86.6 BUN/Creatinine Ratio 23 (6-20) Glucose Level 98 mg/dL (70-99) Calcium Level 9.6 mg/dL (8.5-10.1) Total Bilirubin 0.6 mg/dL (0.2-1.0) Aspartate Amino Transf (AST/SGOT) 12 U/L (15-37) Alanine Aminotransferase (ALT/SGPT) 18 U/L (14-59) Alkaline Phosphatase 91 U/L (46-116) Troponin I High Sensitivity 16 ng/L (4-50) 17 ng/L (4-50) IP-Xep-T-Type Natriuretic Peptide 2260 pg/mL (0-124) Total Protein 8.4 g/dL (6.4-8.2) Albumin 3.5 g/dL (3.4-5.0) Albumin/Globulin Ratio 0.7 (1.0-1.7) SARS-CoV-2 RNA (ERIC) Negative (Negative) SARS-CoV-2 Antigen (Rapid) Negative (NEGATIVE) D-Dimer (Anila) 1.04 ug/mlFEU (0.00-0.50) Glucose (Fingerstick) 133 mg/dL (70-99) Test 03/24/21 09:30 03/24/21 12:10 Troponin I High Sensitivity 18 ng/L (4-50) Glucose (Fingerstick) 134 mg/dL (70-99) Laboratory Tests Test 03/23/21 18:20 03/23/21 20:50 03/24/21 00:02 03/24/21 07:46 White Blood Count 7.2 x10^3/uL (4.0-11.0) Red Blood Count 3.53 x10^6/uL (3.50-5.40) Hemoglobin 10.0 g/dL (12.0-15.5) Hematocrit 31.2 % (36.0-47.0) Mean Corpuscular Volume 88 fL (79-100) Mean Corpuscular Hemoglobin 28 pg (25-35) Mean Corpuscular Hemoglobin Concent 32 g/dL (31-37) Red Cell Distribution Width 16.9 % (11.5-14.5) Platelet Count 214 x10^3/uL (140-400) Neutrophils (%) (Auto) 82 % (31-73) Lymphocytes (%) (Auto) 9 % (24-48) Monocytes (%) (Auto) 8 % (0-9) Eosinophils (%) (Auto) 0 % (0-3) Basophils (%) (Auto) 1 % (0-3) Neutrophils # (Auto) 5.9 x10^3/uL (1.8-7.7) Lymphocytes # (Auto) 0.7 x10^3/uL (1.0-4.8) Monocytes # (Auto) 0.6 x10^3/uL (0.0-1.1) Eosinophils # (Auto) 0.0 x10^3/uL (0.0-0.7) Basophils # (Auto) 0.0 x10^3/uL (0.0-0.2) Sodium Level 140 mmol/L (136-145) Potassium Level 4.1 mmol/L (3.5-5.1) Chloride Level 100 mmol/L (98-107) Carbon Dioxide Level 41 mmol/L (21-32) Anion Gap (6-14) Blood Urea Nitrogen 18 mg/dL (7-20) Creatinine 0.8 mg/dL (0.6-1.0) Estimated GFR (Cockcroft-Gault) 86.6 BUN/Creatinine Ratio 23 (6-20) Glucose Level 98 mg/dL (70-99) Calcium Level 9.6 mg/dL (8.5-10.1) Total Bilirubin 0.6 mg/dL (0.2-1.0) Aspartate Amino Transf (AST/SGOT) 12 U/L (15-37) Alanine Aminotransferase (ALT/SGPT) 18 U/L (14-59) Alkaline Phosphatase 91 U/L (46-116) Troponin I High Sensitivity 16 ng/L (4-50) 17 ng/L (4-50) MB-Zks-Z-Type Natriuretic Peptide 2260 pg/mL (0-124) Total Protein 8.4 g/dL (6.4-8.2) Albumin 3.5 g/dL (3.4-5.0) Albumin/Globulin Ratio 0.7 (1.0-1.7) SARS-CoV-2 RNA (ERIC) Negative (Negative) SARS-CoV-2 Antigen (Rapid) Negative (NEGATIVE) D-Dimer (Anila) 1.04 ug/mlFEU (0.00-0.50) Glucose (Fingerstick) 133 mg/dL (70-99) Test 03/24/21 09:30 03/24/21 12:10 Troponin I High Sensitivity 18 ng/L (4-50) Glucose (Fingerstick) 134 mg/dL (70-99) Images Images As above. Assessment/Plan Assessment/Plan 1. Acute systolic heart failure. Patient has ruled out for myocardial infarction but her BNP is elevated at 2260. Chest x-ray and CT scan are as above. We will continue on diuresis with monitoring of lab. We will check an echocardiogram for LV function. 2. History of coronary artery disease with previous bypass surgery. Most recent cardiac catheterization was from 11/04/[address] Arias. Coronaries showed a greater than 60% LAD lesion, an occluded obtuse marginal vessel and a normal right coronary artery. Patient had a patent GARCIA graft to the LAD and a patent saphenous vein graft to the obtuse marginal branch. Ejection fraction was 40%. 3. Chronic atrial fibrillation. Rate controlled. Continue present treatment. 4. Exacerbation of COPD. Continuing present treatment. 5. Hypertensive urgency. Improved today. Will adjust medications as needed. 6. Hyperlipidemia. We will check a lipid panel. 7. Diabetes mellitus. As per the primary service. 8. Permanent pacemaker. Will check on leader assembler and evaluate the patient's device. AMPARO FITZGERALD MD Mar 24, 2021 15:42
[2021-03-24] MEDS ORDERED: FUROSEMIDE 40 MG/4 ML VIAL. IVP ONE (16:00)
[2021-03-24] MEDS: CARVEDILOL 6.25 MG TABLET. PO SCH (17:04)
[2021-03-24] MEDS: INSULIN GLARGINE SYRINGE. SQ SCH (21:24)
[2021-03-24] MEDS: ATORVASTATIN CALCIUM 20 MG TABLET PO SCH (21:25)
[2021-03-25] VITALS (7 sets, daily range): BP systolic 116–163; BP diastolic 48–68
[2021-03-25] MEDS: oxyCODONE/APAP 10/325 1 TAB TABLET PO PRN ×4 (03:15→18:47)
[2021-03-25 05:02] LABS: BASO % 0 % (0-3); EOS % 0 % (0-3); HEMATOCRIT 27.7 % (36.0-47.0); HEMOGLOBIN 8.9 g/dL (12.0-15.5); LYMPH # 0.3 x10^3/uL (1.0-4.8); LYMPH % 4 % (24-48); MEAN CORPUSCULAR HEMOGLOBIN 29 pg (25-35); MEAN CORPUSCULAR HGB CONC 32 g/dL (31-37); MEAN CORPUSCULAR VOLUME 88 fL (79-100); MONO # 0.2 x10^3/uL (0.0-1.1); MONO % 2 % (0-9); NEUT % 94 % (31-73); PLATELET COUNT 174 x10^3/uL (140-400); RED BLOOD COUNT 3.14 x10^6/uL (3.50-5.40); RED CELL DISTRIBUTION WIDTH 16.1 % (11.5-14.5); WHITE BLOOD COUNT 7.5 x10^3/uL (4.0-11.0)
[2021-03-25 05:57] LABS: CHOLESTEROL/HDL RATIO 2.6
[2021-03-25 06:17] LABS: CREATININE 0.9 mg/dL (0.6-1.0); GFR 75.6; MAGNESIUM 2.4 mg/dL (1.8-2.4); PHOSPHORUS 3.6 mg/dL (2.6-4.7); POTASSIUM 4.5 mmol/L (3.5-5.1)
[2021-03-25] MEDS: methylPREDNISolone SOD SUCC PF 40 MG/ML VIAL. IV SCH ×3 (06:30→21:02)
[2021-03-25] MEDS ORDERED: EMPAGLIFLOZIN PO SCH (09:00)
[2021-03-25] MEDS: CALCIUM CARB/VIT D3 500/200 TABLET. PO SCH (09:00)
[2021-03-25] MEDS: ASPIRIN ENTERIC COATED 81 MG TABLET.DR. PO SCH (09:00)
[2021-03-25] MEDS: ENOXAPARIN 40 MG/0.4 ML SYRINGE. SQ SCH (09:10)
[2021-03-25] MEDS: PANTOPRAZOLE 40 MG TABLET.DR. PO SCH (09:10)
[2021-03-25] MEDS: FLUoxetine HCL 20 MG CAPSULE PO SCH (09:10)
[2021-03-25] MEDS: CLOPIDOGREL BISULFATE 75 MG TABLET PO SCH (09:10)
[2021-03-25] MEDS: CARVEDILOL 6.25 MG TABLET. PO SCH ×2 (09:13→18:41)
[2021-03-25] MEDS: LOSARTAN POTASSIUM 50 MG TABLET. PO SCH (09:14)
[2021-03-25] MEDS: ISOSORBIDE MONONITRATE ER 30 MG TAB.ER.24H PO SCH (09:14)
[2021-03-25] MEDS: INSULIN LISPRO 300 UNITS/3 ML VIAL. SQ SCH ×6 (12:00→18:46)
--- NOTE | 2021-03-25 12:07 | PDOC ---
[employer] PROGRESS NOTE Date of Service DOS: DATE: 03/25/21 TIME: 12:06 Chief Complaint Chief Complaint Acute hypoxic respiratory distress due to COPD exacerbation Hypertensive urgency Anemia of chronic disease Elevated BNP likely due to chronic hypoxia Morbid obesity History of diabetes mellitus type 2 History of hypertension History of CABG, heart score 6 Strong cardiac family history Pending limited TTE. Pulmonology consult Albuterol nebulizer treatments every 6 hours as needed IV Solu-Medrol x3 days IV antihypertensive regimen to maintain systolic blood pressure between 140-180 while admitted Lovenox for DVT prophylaxis Protonix while on steroids GI prophylaxis ADA diet Full code Discussed with RN and SW Disposition inpatient management as above Surrogate decision maker is Jessica Santamaria History of Present Illness History of Present Illness 66-year-old female with past medical history of atrial fibrillation, CHF, CAD status post CABG who comes in with chest pressure and shortness of breath that started around [place] time. Progressively worsening. She does have exertional shortness of breath. She wears 2 to 3 L of oxygen at home. She also thinks she gained about 11 kg over the past month. Endorses bilateral lower extremity swelling. Patient is on diuretics at home. Vaccinated for Covid. Denies fever, chills, cough, runny nose, sore throat, sputum production. No sick contacts or covid contacts. 03/25/2021 No acute events overnight. Patient seen and examined ambulating through the hallways with physical therapy. Appears to be more energetic and awake. Patient's chart, labs, images were reviewed and discussed with RN Vitals/I&O Vitals/I&O: Vital Signs Date Time Temp Pulse Resp B/P (MAP) Pulse Ox O2 Delivery O2 Flow Rate FiO2 03/25/21 09:14 71 162/68 03/25/21 09:12 20 96 Nasal Cannula 2.0 03/25/21 07:00 98.4 98.4 I & O 03/24/21 03/24/21 03/25/21 15:00 23:00 07:00 Intake Total 298 ml 118 ml 150 ml Output Total 400 ml 100 ml Balance -102 ml 118 ml 50 ml Physical Exam General: Alert, Oriented X3, Cooperative, mild distress Heart: Regular rate, Other (Irregularly irregular) Lungs: Clear, Crackles Abdomen: Normal bowel sounds Labs Labs: Laboratory Tests Test 03/24/21 12:10 03/24/21 16:42 03/24/21 20:35 03/25/21 04:15 Glucose (Fingerstick) 134 mg/dL (70-99) 190 mg/dL (70-99) 151 mg/dL (70-99) White Blood Count 7.5 x10^3/uL (4.0-11.0) Red Blood Count 3.14 x10^6/uL (3.50-5.40) Hemoglobin 8.9 g/dL (12.0-15.5) Hematocrit 27.7 % (36.0-47.0) Mean Corpuscular Volume 88 fL (79-100) Mean Corpuscular Hemoglobin 29 pg (25-35) Mean Corpuscular Hemoglobin Concent 32 g/dL (31-37) Red Cell Distribution Width 16.1 % (11.5-14.5) Platelet Count 174 x10^3/uL (140-400) Neutrophils (%) (Auto) 94 % (31-73) Lymphocytes (%) (Auto) 4 % (24-48) Monocytes (%) (Auto) 2 % (0-9) Eosinophils (%) (Auto) 0 % (0-3) Basophils (%) (Auto) 0 % (0-3) Neutrophils # (Auto) 7.0 x10^3/uL (1.8-7.7) Lymphocytes # (Auto) 0.3 x10^3/uL (1.0-4.8) Monocytes # (Auto) 0.2 x10^3/uL (0.0-1.1) Eosinophils # (Auto) 0.0 x10^3/uL (0.0-0.7) Basophils # (Auto) 0.0 x10^3/uL (0.0-0.2) Sodium Level 142 mmol/L (136-145) Potassium Level 4.5 mmol/L (3.5-5.1) Chloride Level 98 mmol/L (98-107) Carbon Dioxide Level 40 mmol/L (21-32) Anion Gap 4 (6-14) Blood Urea Nitrogen 20 mg/dL (7-20) Creatinine 0.9 mg/dL (0.6-1.0) Estimated GFR (Cockcroft-Gault) 75.6 Glucose Level 146 mg/dL (70-99) Calcium Level 9.0 mg/dL (8.5-10.1) Phosphorus Level 3.6 mg/dL (2.6-4.7) Magnesium Level 2.4 mg/dL (1.8-2.4) Triglycerides Level 42 mg/dL (0-150) Cholesterol Level 122 mg/dL (0-200) LDL Cholesterol, Calculated 67 mg/dL (0-100) VLDL Cholesterol, Calculated 8 mg/dL (0-40) Non-HDL Cholesterol Calculated 75 mg/dL (0-129) HDL Cholesterol 47 mg/dL (40-60) Cholesterol/HDL Ratio 2.6 Test 03/25/21 08:40 Glucose (Fingerstick) 207 mg/dL (70-99) Assessment and Plan Assessmemt and Plan Problems Medical Problems: (1) Chest pain Status: Acute (2) Elevated d-dimer Status: Acute Comment Review of Relevant I have reviewed the following items nolan (where applicable) has been applied. Medications: Current Medications Medications (Trade) Dose Ordered Sig/Susan Route PRN Reason Start Time Stop Time Status Last Admin Dose Admin Amlodipine Besylate (Norvasc) 5 mg DAILY PO 03/24/21 14:00 03/25/21 09:13 Aspirin (Ecotrin) 81 mg DAILY PO 03/24/21 14:00 03/25/21 09:00 Atorvastatin Calcium (Lipitor) 20 mg HS PO 03/24/21 21:00 03/24/21 21:25 Calcium/Vitamin D (Oscal D 500mg/ 200uts) 1 tab DAILY PO 03/24/21 14:00 03/25/21 09:00 Carvedilol (Coreg) 6.25 mg BIDWMEALS PO 03/24/21 17:00 03/25/21 09:13 Clopidogrel Bisulfate (Plavix) 75 mg DAILY PO 03/24/21 14:00 03/25/21 09:10 Fluoxetine HCl (PROzac) 20 mg DAILY PO 03/24/21 14:00 03/25/21 09:10 Hydralazine HCl (Apresoline) 50 mg TID PO 03/24/21 14:00 03/25/21 09:11 Insulin Human Lispro (HumaLOG) 8 units TIDAC SQ 03/24/21 16:30 03/24/21 17:11 Pantoprazole Sodium (Protonix) 40 mg DAILYAC PO 03/24/21 14:00 03/25/21 09:10 Insulin Glargine (Lantus Syringe) 8 unit QHS SQ 03/24/21 21:00 03/24/21 21:24 Isosorbide Mononitrate (Imdur) 60 mg DAILY PO 03/24/21 14:00 03/25/21 09:14 Losartan Potassium (Cozaar) 100 mg DAILY PO 03/24/21 14:00 03/25/21 09:14 Furosemide (Lasix) 40 mg 1X ONCE IVP 03/24/21 16:00 03/24/21 16:01 DC 03/24/21 17:03 Justifications for Admission Other Justification COPD exacerbation DEIDRE WELLINGTON MD Mar 25, 2021 12:07
--- NOTE | 2021-03-25 14:06 | PDOC ---
PROGRESS NOTES Date of Service DATE: 03/25/21 TIME: 14:04 Subjective Subjective Patient seen and examined She is feeling mildly better today. Objective Objective Vital Signs Date Time Temp Pulse Resp B/P (MAP) Pulse Ox O2 Delivery O2 Flow Rate FiO2 03/25/21 09:42 18 96 Nasal Cannula 2.0 03/25/21 09:14 71 162/68 03/25/21 07:00 98.4 98.4 Intake and Output 03/25/21 07:00 Intake Total 566 ml Output Total 500 ml Balance 66 ml Intake Oral 566 ml Output Urine Total 500 ml # Voids 1 Physical Exam Abdomen: Normal bowel sounds Heart: Regular rate General: mild distress Lungs: Other (Mildly decreased breath sounds) Assessment Assessment Problems Medical Problems: (1) Chest pain Status: Acute (2) Elevated d-dimer Status: Acute 1. Acute systolic heart failure. Patient ruled out for myocardial infarction but her BNP is 2260. Chest x-ray and CT scan are as above. She is feeling mildly better and will continue present treatments. Echocardiogram pending. 2. History of coronary artery disease with previous bypass surgery. Most recent cardiac catheterization was from 11/04/[address] Arias. Coronaries showed a greater than 60% LAD lesion, an occluded obtuse marginal vessel and a normal right coronary artery. Patient had a patent GARCIA graft to the LAD and a patent saphenous vein graft to the obtuse marginal branch. Ejection fraction was 40%. Continue present treatment. 3. Chronic atrial fibrillation. Rate controlled. Continue present treatment. 4. Exacerbation of COPD. Continuing present treatment. Mildly improved. 5. Hypertensive urgency. Improved. 6. Hyperlipidemia. Lipid panel shows an HDL of 47, LDL of 67 and triglycerides of 42. Continue present treatment. 7. Diabetes mellitus. As per the primary service. 8. Permanent pacemaker. 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 Comment Review of Relevant I have reviewed the following items nolan (where applicable) has been applied. Labs Laboratory Tests Test 03/23/21 18:20 03/23/21 20:50 03/24/21 00:02 03/24/21 07:46 White Blood Count 7.2 x10^3/uL (4.0-11.0) Red Blood Count 3.53 x10^6/uL (3.50-5.40) Hemoglobin 10.0 g/dL (12.0-15.5) Hematocrit 31.2 % (36.0-47.0) Mean Corpuscular Volume 88 fL (79-100) Mean Corpuscular Hemoglobin 28 pg (25-35) Mean Corpuscular Hemoglobin Concent 32 g/dL (31-37) Red Cell Distribution Width 16.9 % (11.5-14.5) Platelet Count 214 x10^3/uL (140-400) Neutrophils (%) (Auto) 82 % (31-73) Lymphocytes (%) (Auto) 9 % (24-48) Monocytes (%) (Auto) 8 % (0-9) Eosinophils (%) (Auto) 0 % (0-3) Basophils (%) (Auto) 1 % (0-3) Neutrophils # (Auto) 5.9 x10^3/uL (1.8-7.7) Lymphocytes # (Auto) 0.7 x10^3/uL (1.0-4.8) Monocytes # (Auto) 0.6 x10^3/uL (0.0-1.1) Eosinophils # (Auto) 0.0 x10^3/uL (0.0-0.7) Basophils # (Auto) 0.0 x10^3/uL (0.0-0.2) Sodium Level 140 mmol/L (136-145) Potassium Level 4.1 mmol/L (3.5-5.1) Chloride Level 100 mmol/L (98-107) Carbon Dioxide Level 41 mmol/L (21-32) Anion Gap (6-14) Blood Urea Nitrogen 18 mg/dL (7-20) Creatinine 0.8 mg/dL (0.6-1.0) Estimated GFR (Cockcroft-Gault) 86.6 BUN/Creatinine Ratio 23 (6-20) Glucose Level 98 mg/dL (70-99) Calcium Level 9.6 mg/dL (8.5-10.1) Total Bilirubin 0.6 mg/dL (0.2-1.0) Aspartate Amino Transf (AST/SGOT) 12 U/L (15-37) Alanine Aminotransferase (ALT/SGPT) 18 U/L (14-59) Alkaline Phosphatase 91 U/L (46-116) Troponin I High Sensitivity 16 ng/L (4-50) 17 ng/L (4-50) BC-Jmy-S-Type Natriuretic Peptide 2260 pg/mL (0-124) Total Protein 8.4 g/dL (6.4-8.2) Albumin 3.5 g/dL (3.4-5.0) Albumin/Globulin Ratio 0.7 (1.0-1.7) SARS-CoV-2 RNA (ERIC) Negative (Negative) SARS-CoV-2 Antigen (Rapid) Negative (NEGATIVE) D-Dimer (Anila) 1.04 ug/mlFEU (0.00-0.50) Glucose (Fingerstick) 133 mg/dL (70-99) Test 03/24/21 09:30 03/24/21 12:10 03/24/21 16:42 03/24/21 20:35 Troponin I High Sensitivity 18 ng/L (4-50) Glucose (Fingerstick) 134 mg/dL (70-99) 190 mg/dL (70-99) 151 mg/dL (70-99) Test 03/25/21 04:15 03/25/21 08:40 03/25/21 12:08 White Blood Count 7.5 x10^3/uL (4.0-11.0) Red Blood Count 3.14 x10^6/uL (3.50-5.40) Hemoglobin 8.9 g/dL (12.0-15.5) Hematocrit 27.7 % (36.0-47.0) Mean Corpuscular Volume 88 fL (79-100) Mean Corpuscular Hemoglobin 29 pg (25-35) Mean Corpuscular Hemoglobin Concent 32 g/dL (31-37) Red Cell Distribution Width 16.1 % (11.5-14.5) Platelet Count 174 x10^3/uL (140-400) Neutrophils (%) (Auto) 94 % (31-73) Lymphocytes (%) (Auto) 4 % (24-48) Monocytes (%) (Auto) 2 % (0-9) Eosinophils (%) (Auto) 0 % (0-3) Basophils (%) (Auto) 0 % (0-3) Neutrophils # (Auto) 7.0 x10^3/uL (1.8-7.7) Lymphocytes # (Auto) 0.3 x10^3/uL (1.0-4.8) Monocytes # (Auto) 0.2 x10^3/uL (0.0-1.1) Eosinophils # (Auto) 0.0 x10^3/uL (0.0-0.7) Basophils # (Auto) 0.0 x10^3/uL (0.0-0.2) Sodium Level 142 mmol/L (136-145) Potassium Level 4.5 mmol/L (3.5-5.1) Chloride Level 98 mmol/L (98-107) Carbon Dioxide Level 40 mmol/L (21-32) Anion Gap 4 (6-14) Blood Urea Nitrogen 20 mg/dL (7-20) Creatinine 0.9 mg/dL (0.6-1.0) Estimated GFR (Cockcroft-Gault) 75.6 Glucose Level 146 mg/dL (70-99) Calcium Level 9.0 mg/dL (8.5-10.1) Phosphorus Level 3.6 mg/dL (2.6-4.7) Magnesium Level 2.4 mg/dL (1.8-2.4) Triglycerides Level 42 mg/dL (0-150) Cholesterol Level 122 mg/dL (0-200) LDL Cholesterol, Calculated 67 mg/dL (0-100) VLDL Cholesterol, Calculated 8 mg/dL (0-40) Non-HDL Cholesterol Calculated 75 mg/dL (0-129) HDL Cholesterol 47 mg/dL (40-60) Cholesterol/HDL Ratio 2.6 Glucose (Fingerstick) 207 mg/dL (70-99) 117 mg/dL (70-99) Laboratory Tests Test 03/24/21 16:42 03/24/21 20:35 03/25/21 04:15 03/25/21 08:40 Glucose (Fingerstick) 190 mg/dL (70-99) 151 mg/dL (70-99) 207 mg/dL (70-99) White Blood Count 7.5 x10^3/uL (4.0-11.0) Red Blood Count 3.14 x10^6/uL (3.50-5.40) Hemoglobin 8.9 g/dL (12.0-15.5) Hematocrit 27.7 % (36.0-47.0) Mean Corpuscular Volume 88 fL (79-100) Mean Corpuscular Hemoglobin 29 pg (25-35) Mean Corpuscular Hemoglobin Concent 32 g/dL (31-37) Red Cell Distribution Width 16.1 % (11.5-14.5) Platelet Count 174 x10^3/uL (140-400) Neutrophils (%) (Auto) 94 % (31-73) Lymphocytes (%) (Auto) 4 % (24-48) Monocytes (%) (Auto) 2 % (0-9) Eosinophils (%) (Auto) 0 % (0-3) Basophils (%) (Auto) 0 % (0-3) Neutrophils # (Auto) 7.0 x10^3/uL (1.8-7.7) Lymphocytes # (Auto) 0.3 x10^3/uL (1.0-4.8) Monocytes # (Auto) 0.2 x10^3/uL (0.0-1.1) Eosinophils # (Auto) 0.0 x10^3/uL (0.0-0.7) Basophils # (Auto) 0.0 x10^3/uL (0.0-0.2) Sodium Level 142 mmol/L (136-145) Potassium Level 4.5 mmol/L (3.5-5.1) Chloride Level 98 mmol/L (98-107) Carbon Dioxide Level 40 mmol/L (21-32) Anion Gap 4 (6-14) Blood Urea Nitrogen 20 mg/dL (7-20) Creatinine 0.9 mg/dL (0.6-1.0) Estimated GFR (Cockcroft-Gault) 75.6 Glucose Level 146 mg/dL (70-99) Calcium Level 9.0 mg/dL (8.5-10.1) Phosphorus Level 3.6 mg/dL (2.6-4.7) Magnesium Level 2.4 mg/dL (1.8-2.4) Triglycerides Level 42 mg/dL (0-150) Cholesterol Level 122 mg/dL (0-200) LDL Cholesterol, Calculated 67 mg/dL (0-100) VLDL Cholesterol, Calculated 8 mg/dL (0-40) Non-HDL Cholesterol Calculated 75 mg/dL (0-129) HDL Cholesterol 47 mg/dL (40-60) Cholesterol/HDL Ratio 2.6 Test 03/25/21 12:08 Glucose (Fingerstick) 117 mg/dL (70-99) Medications Current Medications Aspirin (Aspirin Chewable) 324 mg 1X ONCE PO Last administered on 03/23/21at 18:53; Start 03/23/21 at 18:00; Stop 03/23/21 at 18:01; Status DC Bumetanide (Bumex) 2.5 mg 1X ONCE IV Last administered on 03/23/21at 23:47; Start 03/23/21 at 18:30; Stop 03/23/21 at 18:31; Status DC Oxycodone/ Acetaminophen (Percocet 10/325) 1 tab 1X ONCE PO Last administered on 03/23/21at 21:32; Start 03/23/21 at 22:00; Stop 03/23/21 at 22:01; Status DC Ondansetron HCl (Zofran Odt) 4 mg 1X ONCE PO Last administered on 03/23/21at 21:32; Start 03/23/21 at 22:00; Stop 03/23/21 at 22:01; Status DC Ondansetron HCl (Zofran) 4 mg PRN Q8HRS PRN IVP NAUSEA/VOMITING 1ST CHOICE; Start 03/23/21 at 21:45; Stop 03/24/21 at 09:56; Status DC Fentanyl Citrate (Fentanyl 2ml Vial) 50 mcg PRN Q2HRS PRN IVP SEVERE PAIN 7-10; Start 03/23/21 at 21:45 Insulin Human Lispro (HumaLOG) 0-5 UNITS TIDWMEALS SQ ; Start 03/24/21 at 08:00; Stop 03/24/21 at 13:19; Status DC Dextrose (Dextrose 50%-Water Syringe) 12.5 gm PRN Q15MIN PRN IV SEE COMMENTS; Start 03/23/21 at 21:45; Stop 03/24/21 at 09:57; Status DC Iohexol (Omnipaque 350 Mg/ml) 100 ml 1X ONCE IV Last administered on 03/23/21at 22:52; Start 03/23/21 at 22:30; Stop 03/23/21 at 22:31; Status DC Info (CONTRAST GIVEN -- Rx MONITORING) 1 each PRN DAILY PRN MC SEE COMMENTS; Start 03/23/21 at 22:15; Stop 03/25/21 at 22:14 Oxycodone/ Acetaminophen (Percocet 10/325) 2 tab PRN Q6HRS PRN PO MODERATE TO SEVERE PAIN; Start 03/24/21 at 01:15; Status Cancel Oxycodone/ Acetaminophen (Percocet 10/325) 1 tab PRN Q4HRS PRN PO SEVERE PAIN 7-10 Last administered on 03/25/21at 09:12; Start 03/24/21 at 01:45 Methylprednisolone Sodium Succinate (SOLU-Medrol 40MG VIAL) 40 mg Q8HRS IV Last administered on 03/25/21at 06:30; Start 03/24/21 at 10:30; Stop 03/27/21 at 10:29 Sennosides (Senna) 17.2 mg PRN BID PRN PO CONSTIPATION; Start 03/24/21 at 10:00 Docusate Sodium (Colace) 100 mg PRN DAILY PRN PO HARD STOOLS; Start 03/24/21 at 10:00 Ondansetron HCl (Zofran) 4 mg PRN Q6HRS PRN IVP NAUSEA/VOMITING, 1ST CHOICE; Start 03/24/21 at 10:00 Insulin Human Lispro (HumaLOG) 0-7 UNITS TIDWMEALS SQ Last administered on 03/25/21at 12:32; Start 03/24/21 at 12:00 Dextrose (Dextrose 50%-Water Syringe) 12.5 gm PRN Q15MIN PRN IV SEE COMMENTS; Start 03/24/21 at 10:00 Acetaminophen (Tylenol) 650 mg PRN Q4HRS PRN PO TEMP OVER 100.4F OR MILD PAIN; Start 03/24/21 at 10:00 Lorazepam (Ativan) 0.5 mg PRN Q6HRS PRN PO ANXIETY / AGITATION; Start 03/24/21 at 10:00 Lorazepam (Ativan Inj) 0.25 mg PRN Q4HRS PRN IV ANXIETY / AGITATION; Start 03/24/21 at 10:00 Enoxaparin Sodium (Lovenox 40mg Syringe) 40 mg DAILY SQ Last administered on 03/25/21at 09:10; Start 03/24/21 at 10:30 Prochlorperazine Edisylate (Compazine) 10 mg PRN Q6HRS PRN IV NAUSEA/VOMITING, 2ND CHOICE; Start 03/24/21 at 10:00 Diphenhydramine HCl (Benadryl) 25 mg PRN Q6HRS PRN IVP ITCHING; Start 03/24/21 at 10:00 Diphenhydramine HCl (Benadryl) 25 mg PRN Q6HRS PRN PO ITCHING; Start 03/24/21 at 10:00 Diphenhydramine HCl (Benadryl) 25 mg PRN QHS PRN PO INSOMNIA; Start 03/24/21 at 10:00 Zolpidem Tartrate (Ambien) 2.5 mg PRN QHS PRN PO INSOMNIA; Start 03/24/21 at 10:00 Amlodipine Besylate (Norvasc) 5 mg DAILY PO Last administered on 03/25/21 09:13; Start 03/24/21 at 14:00 Aspirin (Ecotrin) 81 mg DAILY PO Last administered on 03/25/21at 09:00; Start 03/24/21 at 14:00 Atorvastatin Calcium (Lipitor) 20 mg HS PO Last administered on 03/24/21at 21:25; Start 03/24/21 at 21:00 Calcium/Vitamin D (Oscal D 500mg/ 200uts) 1 tab DAILY PO Last administered on 03/25/21at 09:00; Start 03/24/21 at 14:00 Carvedilol (Coreg) 6.25 mg BIDWMEALS PO Last administered on 03/25/21at 09:13; Start 03/24/21 at 17:00 Clopidogrel Bisulfate (Plavix) 75 mg DAILY PO Last administered on 03/25/21at 09:10; Start 03/24/21 at 14:00 Fluoxetine HCl (PROzac) 20 mg DAILY PO Last administered on 03/25/21at 09:10; Start 03/24/21 at 14:00 Hydralazine HCl (Apresoline) 50 mg TID PO Last administered on 03/25/21 09:11; Start 03/24/21 at 14:00 Insulin Human Lispro (HumaLOG) 8 units TIDAC SQ Last administered on 03/25/21at 12:42; Start 03/24/21 at 16:30 Pantoprazole Sodium (Protonix) 40 mg DAILYAC PO Last administered on 03/25/21at 09:10; Start 03/24/21 at 14:00 Non-Formulary Medication (Empagliflozin (Jardiance)) 1 tab DAILY PO ; Start 03/25/21 at 09:00; Status UNV Insulin Glargine (Lantus Syringe) 8 unit QHS SQ Last administered on 03/24/21at 21:24; Start 03/24/21 at 21:00 Isosorbide Mononitrate (Imdur) 60 mg DAILY PO Last administered on 03/25/21at 09:14; Start 03/24/21 at 14:00 Losartan Potassium (Cozaar) 100 mg DAILY PO Last administered on 03/25/21at 09:14; Start 03/24/21 at 14:00 Furosemide (Lasix) 40 mg 1X ONCE IVP Last administered on 03/24/21at 17:03; Start 03/24/21 at 16:00; Stop 03/24/21 at 16:01; Status DC Active Scripts Active Protonix (Pantoprazole Sodium) 40 Mg Tablet.dr 40 Mg PO DAILYAC 60 Days Reported Lantus Solostar (Insulin Glargine,Hum.rec.anlog) 100 Unit/1 Ml Insuln.pen 8 Unit SQ QHS Carvedilol 6.25 Mg Tablet 1 Tab PO BID Trazodone Hcl 100 Mg Tablet 1 Tab PO QHS Hydralazine Hcl 50 Mg Tablet 1 Tab PO TID Januvia (Sitagliptin Phosphate) 50 Mg Tablet 1 Tab PO DAILY Jardiance (Empagliflozin) 10 Mg Tablet 1 Tab PO DAILY Spironolactone 25 Mg Tablet 1 Tab PO DAILY Isosorbide Mononitrate Er (Isosorbide Mononitrate) 60 Mg Tab.er.24h 1 Tab PO DAILY Bumetanide 2 Mg Tablet 2 Mg PO DAILY Ambien (Zolpidem Tartrate) 10 Mg Tablet 10 Mg PO PRN QHS PRN Percocet 10-325 Mg Tablet (Oxycodone/Acetaminophen) 1 Each Tablet 1 Tab PO PRN Q4HRS PRN MDD 6 Tablet(s) 5 Days Amlodipine Besylate 5 Mg Tablet 5 Mg PO DAILY Humalog (Insulin Lispro) 100 Unit/1 Ml Vial 8 Unit SQ TIDAC Ventolin Hfa Inhaler (Albuterol Sulfate) 18 Gm Hfa.aer.ad 2 Puff INH [id number] Potassium Chloride (Potassium Chloride) 20 Meq Tablet.er 20 Meq PO BIDWMEALS Carvedilol 25 Mg Tablet 12.5 Mg PO BIDWMEALS Clopidogrel (Clopidogrel Bisulfate) 75 Mg Tablet 75 Mg PO DAILY Losartan Potassium 100 Mg Tablet 100 Mg PO DAILY Calcium 500 + Vit D 200 Caplet (Calcium Carbonate/Vitamin D3) 1 Each Tablet 1 Each PO DAILY Fluoxetine Hcl 20 Mg Capsule 1 Cap PO DAILY Atorvastatin Calcium 20 Mg Tablet 20 Mg PO HS Aspir 81 (Aspirin) 81 Mg Tablet.dr 1 Tab PO DAILY Vitals/I & O Vital Sign - Last 24 Hours 03/24/21 03/24/21 03/24/21 03/24/21 15:00 17:04 17:04 17:34 Temp 99.2 99.2 Pulse 54 80 Resp 18 B/P (MAP) 155/57 (89) 155/57 Pulse Ox 97 97 97 O2 Delivery Nasal Cannula Nasal Cannula Nasal Cannula O2 Flow Rate 2.0 2.0 2.0 03/24/21 03/24/21 03/24/21 03/24/21 19:00 20:08 21:25 21:26 Temp 97.6 97.6 Pulse 54 54 Resp 22 B/P (MAP) 143/62 (89) 143/62 Pulse Ox 92 O2 Delivery Nasal Cannula Nasal Cannula Nasal Cannula O2 Flow Rate 2.0 2.0 2.0 03/24/21 03/24/21 03/25/21 03/25/21 21:56 23:30 03:15 03:45 Temp 98.7 98.7 Pulse 74 Resp 20 B/P (MAP) 149/71 (97) Pulse Ox 97 O2 Delivery Nasal Cannula Nasal Cannula Nasal Cannula Nasal Cannula O2 Flow Rate 2.0 2.0 2.0 2.0 03/25/21 03/25/21 03/25/21 03/25/21 03:45 07:00 09:11 09:12 Temp 98.7 98.4 98.7 98.4 Pulse 56 71 71 Resp 20 24 20 B/P (MAP) 137/49 (78) 162/68 (99) 162/68 Pulse Ox 96 96 96 O2 Delivery Nasal Cannula Nasal Cannula Nasal Cannula O2 Flow Rate 2.0 2.0 2.0 03/25/21 03/25/21 03/25/21 03/25/21 09:13 09:13 09:14 09:14 Pulse 71 71 71 71 B/P (MAP) 162/68 162/68 162/68 162/68 03/25/21 09:42 Resp 18 Pulse Ox 96 O2 Delivery Nasal Cannula O2 Flow Rate 2.0 Intake and Output 03/24/21 03/24/21 03/25/21 15:00 23:00 07:00 Intake Total 298 ml 118 ml 150 ml Output Total 400 ml 100 ml Balance -102 ml 118 ml 50 ml Justifications for Admission Other Justification COPD exacerbation AMPARO FITZGERALD MD Mar 25, 2021 14:06
[2021-03-25] MEDS: ATORVASTATIN CALCIUM 20 MG TABLET PO SCH (21:02)
[2021-03-25] MEDS: INSULIN GLARGINE SYRINGE. SQ SCH (21:02)
[2021-03-25] MEDS: ZOLPIDEM 5 MG TABLET. PO PRN (21:08)
[2021-03-26] MEDS: oxyCODONE/APAP 10/325 1 TAB TABLET PO PRN ×5 (01:49→23:20)
[2021-03-26 03:00] VITALS: BP 139/51
[2021-03-26 05:10] LABS: BASO % 0 % (0-3); EOS % 0 % (0-3); HEMATOCRIT 28.7 % (36.0-47.0); LYMPH # 0.3 x10^3/uL (1.0-4.8); LYMPH % 3 % (24-48); MEAN CORPUSCULAR HEMOGLOBIN 28 pg (25-35); MEAN CORPUSCULAR HGB CONC 31 g/dL (31-37); MEAN CORPUSCULAR VOLUME 90 fL (79-100); MONO # 0.4 x10^3/uL (0.0-1.1); MONO % 4 % (0-9); NEUT # 8.4 x10^3/uL (1.8-7.7); NEUT % 93 % (31-73); PLATELET COUNT 188 x10^3/uL (140-400); RED BLOOD COUNT 3.19 x10^6/uL (3.50-5.40); RED CELL DISTRIBUTION WIDTH 15.9 % (11.5-14.5); WHITE BLOOD COUNT 9.1 x10^3/uL (4.0-11.0)
[2021-03-26 05:28] LABS: BLOOD UREA NITROGEN 35 mg/dL (7-20); CALCIUM 8.9 mg/dL (8.5-10.1); CARBON DIOXIDE 42 mmol/L (21-32); CHLORIDE 100 mmol/L (98-107); GFR 66.9; GLUCOSE 143 mg/dL (70-99); MAGNESIUM 2.7 mg/dL (1.8-2.4); POTASSIUM 4.9 mmol/L (3.5-5.1); SODIUM 141 mmol/L (136-145)
[2021-03-26] MEDS: methylPREDNISolone SOD SUCC PF 40 MG/ML VIAL. IV SCH ×3 (05:51→20:50)
[2021-03-26 07:00] VITALS: BP 140/48
[2021-03-26] MEDS ORDERED: PERFLUTREN PROTEIN-A MICROSPHR 0.22 MG/ML 3 ML VIAL. IV ONE ×2 (07:30→07:51)
[2021-03-26] MEDS: INSULIN LISPRO 300 UNITS/3 ML VIAL. SQ SCH ×6 (08:29→17:23)
[2021-03-26] MEDS: FLUoxetine HCL 20 MG CAPSULE PO SCH (08:53)
[2021-03-26] MEDS: CALCIUM CARB/VIT D3 500/200 TABLET. PO SCH (08:53)
[2021-03-26] MEDS: CLOPIDOGREL BISULFATE 75 MG TABLET PO SCH (08:54)
[2021-03-26] MEDS: ASPIRIN ENTERIC COATED 81 MG TABLET.DR. PO SCH (08:54)
[2021-03-26] MEDS: PANTOPRAZOLE 40 MG TABLET.DR. PO SCH (08:55)
[2021-03-26] MEDS: CARVEDILOL 6.25 MG TABLET. PO SCH ×2 (08:55→17:00)
[2021-03-26] MEDS: ENOXAPARIN 40 MG/0.4 ML SYRINGE. SQ SCH (08:56)
--- NOTE | 2021-03-26 10:15 | PDOC ---
GABRIELLA VÁSQUEZ BAKER BREAD 03/26/21 1015: CARDIO Progress Notes Date and Time Date of Service 03/26/21 Time of Evaluation 1000 Subjective Subjective: No Chest Pain, No Palpitations, No Dizziness, Other (SOA better, but persists ) Vitals Vitals Vital Signs Date Time Temp Pulse Resp B/P (MAP) Pulse Ox O2 Delivery O2 Flow Rate FiO2 03/26/21 08:55 62 137/51 03/26/21 07:00 98.5 20 98 Nasal Cannula 2.0 98.5 Weight Weight [ ] Input and Output Intake and Output Intake and Output 03/26/21 07:00 Intake Total 1030 ml Output Total 1800 ml Balance -770 ml Intake Oral 1030 ml Output Urine Total 1800 ml # Voids 1 Laboratory Labs Laboratory Tests Test 03/25/21 12:08 03/25/21 17:19 03/25/21 19:20 03/26/21 03:45 Glucose (Fingerstick) 117 mg/dL (70-99) 118 mg/dL (70-99) 203 mg/dL (70-99) White Blood Count 9.1 x10^3/uL (4.0-11.0) Red Blood Count 3.19 x10^6/uL (3.50-5.40) Hemoglobin 9.0 g/dL (12.0-15.5) Hematocrit 28.7 % (36.0-47.0) Mean Corpuscular Volume 90 fL (79-100) Mean Corpuscular Hemoglobin 28 pg (25-35) Mean Corpuscular Hemoglobin Concent 31 g/dL (31-37) Red Cell Distribution Width 15.9 % (11.5-14.5) Platelet Count 188 x10^3/uL (140-400) Neutrophils (%) (Auto) 93 % (31-73) Lymphocytes (%) (Auto) 3 % (24-48) Monocytes (%) (Auto) 4 % (0-9) Eosinophils (%) (Auto) 0 % (0-3) Basophils (%) (Auto) 0 % (0-3) Neutrophils # (Auto) 8.4 x10^3/uL (1.8-7.7) Lymphocytes # (Auto) 0.3 x10^3/uL (1.0-4.8) Monocytes # (Auto) 0.4 x10^3/uL (0.0-1.1) Eosinophils # (Auto) 0.0 x10^3/uL (0.0-0.7) Basophils # (Auto) 0.0 x10^3/uL (0.0-0.2) Sodium Level 141 mmol/L (136-145) Potassium Level 4.9 mmol/L (3.5-5.1) Chloride Level 100 mmol/L (98-107) Carbon Dioxide Level 42 mmol/L (21-32) Anion Gap (6-14) Blood Urea Nitrogen 35 mg/dL (7-20) Creatinine 1.0 mg/dL (0.6-1.0) Estimated GFR (Cockcroft-Gault) 66.9 Glucose Level 143 mg/dL (70-99) Calcium Level 8.9 mg/dL (8.5-10.1) Magnesium Level 2.7 mg/dL (1.8-2.4) Test 03/26/21 07:31 Glucose (Fingerstick) 174 mg/dL (70-99) Physical Exam HEENT: Neck Supple W Full Motion Chest: Symmetric LUNGS: Other (diminished bases) Heart: RRR (paced ) Extremities: Other (1+ bilateral LE edema ) Neurology: alert, oriented, follow commands Assessment Assessment 1. Acute on chronic diastolic CHF: improved s/p diuresis. Echo with preserved LV systolic function 3. Accelerated hypertension; better controlled 4. CAD: Past CABG. patent SVG to OM and GARCIA to LAD per [facility] 10/2019. Follows with [facility] 5. Secondary pulmonary HTN: Recent RHC 6. VIOLETTA: uses CPAP at home 7. SSS/PPM in situ: [facility]. baseline chronic RBBB 8. DM, II 9. Hyperlipidemia; statin 10. Morbid obesity Recommendations Ongoing diuresis Secondary prevention including DAPT with ASA/Plavix and antianginals Consider outpatient ischemic evaluation Supportive care Justicifation of Admission Dx: Justifications for Admission: Justification of Admission Dx: N/A MISBAH HUFFMAN MD 03/26/21 1621: CARDIO Progress Notes Assessment Assessment Patient seen and examined. Agree with PAR[employer] RECREATION COORDINATOR's assessment and plan. Acute on chronic diastolic heart failure improving with diuresis 2D echo showed normal left ventricle systolic function Blood pressure better controlled since admission CAD status clinically stable SSS s/p PPM with recent interrogation showing normal function GABRIELLA VÁSQUEZ APRN Mar 26, 2021 10:15 MISBAH HUFFMAN MD Mar 26, 2021 16:21
[2021-03-26 11:00] VITALS: BP 151/76
[2021-03-26] MEDS: LOSARTAN POTASSIUM 50 MG TABLET. PO SCH (11:06)
[2021-03-26] MEDS: ISOSORBIDE MONONITRATE ER 30 MG TAB.ER.24H PO SCH (11:07)
--- NOTE | 2021-03-26 12:41 | NUR ---
SS following for discharge planning. SS reviewed pt chart and discussed with pt RN. Pt is from home and is currently requiring oxygen at two liters nasal canula. COVID19 negative. Pt has home oxygen. Cardiology following. PT/OT recommended home. SS will continue to follow for discharge planning.
--- NOTE | 2021-03-26 13:21 | CARD ---
MR#: [id number] Date of Study: 03/26/2021 Ordering Physician: DEIDRE WELLINGTON, Referring Physician: DEIDRE WELLINGTON, Tech: Emy Tan [facility] APPROVED REPORT EXAM: Two-dimensional and M-mode echocardiogram with Doppler and color Doppler. Other Information Quality : Technically LimitedHR: 75bpm Rhythm : NSR INDICATION Dyspnea RISK FACTORS Hypertension Obesity Diabetes 2D DIMENSIONS Left Atrium(2D)3.8 (1.6-4.0cm)IVSd1.5 (0.7-1.1cm) Aortic Root(2D)3.3 (2.0-3.7cm)LVDd5.3 (3.9-5.9cm) LVOT Diameter2.6 (1.8-2.4cm)PWd1.4 (0.7-1.1cm) LVDs3.0 (2.5-4.0cm)FS (%) 44.4 % SV102.4 mlLVEF(%)75.2 (>50%) Tricuspid Valve TR P. [id number] Peak Gr.86mmHg LEFT VENTRICLE The left ventricle is normal size. There is mild concentric left ventricular hypertrophy. The left ve ntricular systolic function is normal. Estimated ejection fraction 60%. There is normal LV segmental wall motion. RIGHT VENTRICLE The right ventricle is normal size. There is normal right ventricular wall thickness. The right ventr icular systolic function is normal. AORTIC VALVE The aortic valve is normal in structure and function. There is no significant aortic valvular stenosi s. MITRAL VALVE The mitral valve is normal in structure and function. There is no evidence of mitral valve prolapse. There is no mitral valve stenosis. TRICUSPID VALVE The tricuspid valve is normal in structure and function. Doppler and Color Flow revealed mild tricusp id regurgitation. Estimated PAP 85-95 mmHg. There is no tricuspid valve stenosis. GREAT VESSELS The aortic root is normal in size. The ascending aorta is normal in size. The IVC is dilated and long apses <50% with inspiration. PERICARDIAL EFFUSION There is no evidence of significant pericardial effusion. Critical Notification Critical Value: No <Conclusion> The left ventricular systolic function is normal. Estimated ejection fraction 60%. There is normal LV segmental wall motion. There is no evidence of significant pericardial effusion. Signed by : Roger Aggarwal, Electronically Approved : 03/26/2021 13:21:22
[2021-03-26 15:00] VITALS: BP 119/37
[2021-03-26] MEDS ORDERED: BUMETANIDE 1 MG/4 ML VIAL. IV ONE (16:15)
[2021-03-26 19:00] VITALS: BP 128/46
--- NOTE | 2021-03-26 19:18 | PDOC ---
[employer] PROGRESS NOTE Date of Service DOS: DATE: 03/26/21 TIME: 19:17 Chief Complaint Chief Complaint Acute hypoxic respiratory distress due to COPD exacerbation Hypertensive urgency Anemia of chronic disease Elevated BNP likely due to chronic hypoxia Morbid obesity History of diabetes mellitus type 2 History of hypertension History of CABG, heart score 6 Strong cardiac family history Pending limited TTE. Pulmonology consult Albuterol nebulizer treatments every 6 hours as needed IV Solu-Medrol x3 days IV antihypertensive regimen to maintain systolic blood pressure between 140-180 while admitted Lovenox for DVT prophylaxis Protonix while on steroids GI prophylaxis ADA diet Full code Discussed with RN and SW Disposition inpatient management as above Surrogate decision maker is Jessica Santamaria History of Present Illness History of Present Illness 66-year-old female with past medical history of atrial fibrillation, CHF, CAD status post CABG who comes in with chest pressure and shortness of breath that started around Donie time. Progressively worsening. She does have exertional shortness of breath. She wears 2 to 3 L of oxygen at home. She also thinks she gained about 11 kg over the past month. Endorses bilateral lower extremity swelling. Patient is on diuretics at home. Vaccinated for Covid. Denies fever, chills, cough, runny nose, sore throat, sputum production. No sick contacts or covid contacts. 03/25/2021 No acute events overnight. Patient seen and examined ambulating through the hallways with physical therapy. Appears to be more energetic and awake. Patient's chart, labs, images were reviewed and discussed with RN 03/26/21 No acute events overnight. Pt is at her baseline O2 requirement but still has some SOB during rest and exertion. ongoing diuresis with Bumex. Will anticipate possible DC tomorrow if symptomatically improved. Vitals/I&O Vitals/I&O: Vital Signs Date Time Temp Pulse Resp B/P (MAP) Pulse Ox O2 Delivery O2 Flow Rate FiO2 03/26/21 17:48 18 03/26/21 17:00 54 135/40 03/26/21 15:00 98.6 97 Nasal Cannula 2.0 98.6 I & O 03/25/21 03/25/21 03/26/21 15:00 23:00 07:00 Intake Total 380 ml 650 ml Output Total 1200 ml 600 ml Balance -820 ml 650 ml -600 ml Physical Exam General: mild distress Heart: Regular rate Lungs: Clear, Crackles Abdomen: Normal bowel sounds Labs Labs: Laboratory Tests Test 03/25/21 19:20 03/26/21 03:45 03/26/21 07:31 03/26/21 11:08 Glucose (Fingerstick) 203 mg/dL (70-99) 174 mg/dL (70-99) 181 mg/dL (70-99) White Blood Count 9.1 x10^3/uL (4.0-11.0) Red Blood Count 3.19 x10^6/uL (3.50-5.40) Hemoglobin 9.0 g/dL (12.0-15.5) Hematocrit 28.7 % (36.0-47.0) Mean Corpuscular Volume 90 fL (79-100) Mean Corpuscular Hemoglobin 28 pg (25-35) Mean Corpuscular Hemoglobin Concent 31 g/dL (31-37) Red Cell Distribution Width 15.9 % (11.5-14.5) Platelet Count 188 x10^3/uL (140-400) Neutrophils (%) (Auto) 93 % (31-73) Lymphocytes (%) (Auto) 3 % (24-48) Monocytes (%) (Auto) 4 % (0-9) Eosinophils (%) (Auto) 0 % (0-3) Basophils (%) (Auto) 0 % (0-3) Neutrophils # (Auto) 8.4 x10^3/uL (1.8-7.7) Lymphocytes # (Auto) 0.3 x10^3/uL (1.0-4.8) Monocytes # (Auto) 0.4 x10^3/uL (0.0-1.1) Eosinophils # (Auto) 0.0 x10^3/uL (0.0-0.7) Basophils # (Auto) 0.0 x10^3/uL (0.0-0.2) Sodium Level 141 mmol/L (136-145) Potassium Level 4.9 mmol/L (3.5-5.1) Chloride Level 100 mmol/L (98-107) Carbon Dioxide Level 42 mmol/L (21-32) Anion Gap (6-14) Blood Urea Nitrogen 35 mg/dL (7-20) Creatinine 1.0 mg/dL (0.6-1.0) Estimated GFR (Cockcroft-Gault) 66.9 Glucose Level 143 mg/dL (70-99) Calcium Level 8.9 mg/dL (8.5-10.1) Magnesium Level 2.7 mg/dL (1.8-2.4) Assessment and Plan Assessmemt and Plan Problems Medical Problems: (1) Chest pain Status: Acute (2) Elevated d-dimer Status: Acute Comment Review of Relevant I have reviewed the following items nolan (where applicable) has been applied. Medications: Current Medications Medications (Trade) Dose Ordered Sig/Susan Route PRN Reason Start Time Stop Time Status Last Admin Dose Admin Bumetanide (Bumex) 1 mg 1X ONCE IV 03/26/21 16:15 03/26/21 16:16 DC 03/26/21 17:17 Justifications for Admission Other Justification COPD exacerbation DEIDRE WELLINGTON MD Mar 26, 2021 19:18
[2021-03-26] MEDS: ATORVASTATIN CALCIUM 20 MG TABLET PO SCH (20:49)
[2021-03-26] MEDS: ZOLPIDEM 5 MG TABLET. PO PRN (20:49)
[2021-03-26] MEDS: INSULIN GLARGINE SYRINGE. SQ SCH (20:54)
[2021-03-26 22:44] VITALS: BP 142/62
[2021-03-27 03:00] VITALS: BP 148/47
[2021-03-27] MEDS: oxyCODONE/APAP 10/325 1 TAB TABLET PO PRN ×2 (05:29→11:11)
[2021-03-27] MEDS: methylPREDNISolone SOD SUCC PF 40 MG/ML VIAL. IV SCH (05:30)
[2021-03-27 06:46] VITALS: BP 151/80
[2021-03-27 06:51] LABS: BASO % 0 % (0-3); EOS % 0 % (0-3); HEMATOCRIT 30.4 % (36.0-47.0); HEMOGLOBIN 9.5 g/dL (12.0-15.5); LYMPH # 0.2 x10^3/uL (1.0-4.8); LYMPH % 3 % (24-48); MEAN CORPUSCULAR HEMOGLOBIN 28 pg (25-35); MEAN CORPUSCULAR HGB CONC 31 g/dL (31-37); MEAN CORPUSCULAR VOLUME 90 fL (79-100); MONO # 0.4 x10^3/uL (0.0-1.1); MONO % 5 % (0-9); NEUT % 92 % (31-73); PLATELET COUNT 201 x10^3/uL (140-400); RED BLOOD COUNT 3.36 x10^6/uL (3.50-5.40); RED CELL DISTRIBUTION WIDTH 16.5 % (11.5-14.5); WHITE BLOOD COUNT 8.7 x10^3/uL (4.0-11.0)
[2021-03-27 07:02] LABS: GFR 66.9; MAGNESIUM 2.8 mg/dL (1.8-2.4); POTASSIUM 4.9 mmol/L (3.5-5.1)
[2021-03-27] MEDS: INSULIN LISPRO 300 UNITS/3 ML VIAL. SQ SCH ×4 (08:13→11:59)
[2021-03-27] MEDS: FLUoxetine HCL 20 MG CAPSULE PO SCH (08:15)
[2021-03-27] MEDS: ASPIRIN ENTERIC COATED 81 MG TABLET.DR. PO SCH (08:15)
[2021-03-27] MEDS: CARVEDILOL 6.25 MG TABLET. PO SCH (08:16)
[2021-03-27] MEDS: PANTOPRAZOLE 40 MG TABLET.DR. PO SCH (08:16)
[2021-03-27] MEDS: ISOSORBIDE MONONITRATE ER 30 MG TAB.ER.24H PO SCH (08:17)
[2021-03-27] MEDS: LOSARTAN POTASSIUM 50 MG TABLET. PO SCH (08:17)
[2021-03-27] MEDS: CLOPIDOGREL BISULFATE 75 MG TABLET PO SCH (08:17)
[2021-03-27] MEDS: CALCIUM CARB/VIT D3 500/200 TABLET. PO SCH (08:17)
[2021-03-27] MEDS: ENOXAPARIN 40 MG/0.4 ML SYRINGE. SQ SCH (08:18)
--- NOTE | 2021-03-27 08:49 | PDOC ---
GABRIELLA VÁSQUEZ [employer] 03/27/21 0849: CARDIO Progress Notes Date and Time Date of Service 03/27/21 Time of Evaluation 1245 Subjective Subjective: No Chest Pain, No Palpitations, No Dizziness, Other (SOA better, but persists ) Vitals Vitals Vital Signs Date Time Temp Pulse Resp B/P (MAP) Pulse Ox O2 Delivery O2 Flow Rate FiO2 03/27/21 08:17 54 151/80 03/27/21 06:46 98.5 18 96 Nasal Cannula 2.0 98.5 Weight Weight [ ] Input and Output Intake and Output Intake and Output 03/27/21 07:00 Intake Total 1150 ml Output Total 1700 ml Balance -550 ml Intake Oral 1150 ml Output Urine Total 1700 ml Laboratory Labs Laboratory Tests Test 03/26/21 11:08 03/26/21 20:33 03/27/21 04:50 03/27/21 07:44 Glucose (Fingerstick) 181 mg/dL (70-99) 199 mg/dL (70-99) 166 mg/dL (70-99) White Blood Count 8.7 x10^3/uL (4.0-11.0) Red Blood Count 3.36 x10^6/uL (3.50-5.40) Hemoglobin 9.5 g/dL (12.0-15.5) Hematocrit 30.4 % (36.0-47.0) Mean Corpuscular Volume 90 fL (79-100) Mean Corpuscular Hemoglobin 28 pg (25-35) Mean Corpuscular Hemoglobin Concent 31 g/dL (31-37) Red Cell Distribution Width 16.5 % (11.5-14.5) Platelet Count 201 x10^3/uL (140-400) Neutrophils (%) (Auto) 92 % (31-73) Lymphocytes (%) (Auto) 3 % (24-48) Monocytes (%) (Auto) 5 % (0-9) Eosinophils (%) (Auto) 0 % (0-3) Basophils (%) (Auto) 0 % (0-3) Neutrophils # (Auto) 8.0 x10^3/uL (1.8-7.7) Lymphocytes # (Auto) 0.2 x10^3/uL (1.0-4.8) Monocytes # (Auto) 0.4 x10^3/uL (0.0-1.1) Eosinophils # (Auto) 0.0 x10^3/uL (0.0-0.7) Basophils # (Auto) 0.0 x10^3/uL (0.0-0.2) Sodium Level 138 mmol/L (136-145) Potassium Level 4.9 mmol/L (3.5-5.1) Chloride Level 98 mmol/L (98-107) Carbon Dioxide Level 40 mmol/L (21-32) Anion Gap 0 (6-14) Blood Urea Nitrogen 37 mg/dL (7-20) Creatinine 1.0 mg/dL (0.6-1.0) Estimated GFR (Cockcroft-Gault) 66.9 Glucose Level 213 mg/dL (70-99) Calcium Level 9.0 mg/dL (8.5-10.1) Magnesium Level 2.8 mg/dL (1.8-2.4) Physical Exam HEENT: Neck Supple W Full Motion Chest: Symmetric LUNGS: Other (diminished bases) Heart: RRR (paced ) Extremities: Other (1+ bilateral LE edema ) Neurology: alert, oriented, follow commands Assessment Assessment 1. Acute on chronic diastolic CHF: improved s/p diuresis. Echo with preserved LV systolic function 3. Accelerated hypertension; better controlled 4. CAD: Past CABG. patent SVG to OM and GARCIA to LAD per [facility] 10/2019. Follows with [facility] 5. Secondary pulmonary HTN: Recent RHC 6. VIOLETTA: uses CPAP at home 7. SSS/PPM in situ: [facility]. baseline chronic RBBB 8. DM, II 9. Hyperlipidemia; statin 10. Morbid obesity Recommendations Resume oral Bumex Secondary prevention including DAPT with ASA/Plavix and antianginals Consider outpatient ischemic evaluation Supportive care Follow up with [facility] as previously scheduled Justicifation of Admission Dx: Justifications for Admission: Justification of Admission Dx: N/A MISBAH HUFFMAN MD 03/28/21 0600: CARDIO Progress Notes Assessment Assessment Patient seen and examined. Agree with HEATING AND [employer] CONDITIONING MECHANIC's assessment and plan. Acute on chronic diastolic heart failure improving with diuresis 2D echo showed normal left ventricle systolic function Blood pressure better controlled since admission CAD status clinically stable SSS s/p PPM with recent interrogation showing normal function GABRIELLA VÁSQUEZ APRN Mar 27, 2021 08:49 MISBAH HUFFMAN MD Mar 28, 2021 06:00
--- NOTE | 2021-03-27 10:17 | DISCH ---
DISCHARGE INSTRUCTIONS Condition on Discharge Condition on Discharge: Stable Activity After Discharge Activity Instructions for Disc: Activity as tolerated Bathing Instructions: No Tub Bath until see Lifting Instructions after Dis: No heavy lifting, No pulling or pushing Exercise Instruction after Dis: Progress as tolerated Driving Instructions after Dis: No driving for 2 weeks Weight Bearing Status after Di: As tolerated Diet after Discharge Diet after Discharge: Cardiac Diet Texture: Regular Liquid Texture: Thin Liquid Swallowing Supervision: None needed Wound Incision Care Wound/Incision Care: No wound care needed Wound Care Equipment: Sutures/gucci Checks after Discharge Checks after discharge: Check blood press - daily, Check blood sugar, ac/hs, Check your Temp as needed, Weigh Yourself Daily Contacting the DRAbdiel after DC Call your doctor for: Concerns you may have Follow-Up Follow up with: Cardiology as needed or as scheduled Follow Up With: Primary health care provider in 2 weeks Treatment/Equipment after DC Adaptive Equipment Issued: None Discharge Respiratory Equipmen: Oxygen, Nebulizer DEIDRE WELLINGTON MD Mar 27, 2021 10:17
[2021-03-27 11:00] VITALS: BP 158/61
--- NOTE | 2021-03-27 12:49 | NUR ---
SS following up with discharge planning. SS reviewed pt chart and discussed with pt RN. Pt is currently requiring oxygen at two liters nasal canula. COVID19 negative. Pt has home oxygen. Discharge order on the chart for home with self care. Pt requesting transportation to home. Pt will discharge today and return to home between 1600 and 1630 via [facility]. Pt and pt's RN notified.
[2021-03-27 15:00] VITALS: BP 137/50
--- NOTE | 2021-03-27 16:10 | NUR ---
PIV ET TELE DISCONTINUED. MEDICATION LIST AND DISCHARGE INSTRUCTIONS REVIEWED WITH PATIENT. SHE VERBALIZES UNDERSTANDING. ALL POSSESSIONS SENT WITH PATIENT AT TIME OF DISCHARGE. SHE IS DISCHARGED VIA [facility], WITH O2 AT 2L, IN A WHEELCHAIR.
[2021-03-28] MEDS ORDERED: BUMETANIDE 1 MG TABLET. PO SCH (09:00)
== END 2021-03-27 16:08 | disposition home or self-care (01) | DRG 304 ==
LOC: ER 15:47 → 6 SOUTH 21:15
PROVIDERS: ADMIT Internal Medicine; ATTEND Internal Medicine
DX: I16.0 Hypertensive urgency (principal); I50.43 Acute on chronic combined systolic (congestive) and diastolic (congestive) heart failure; J44.1 Chronic obstructive pulmonary disease with (acute) exacerbation; I48.20 Chronic atrial fibrillation, unspecified; I13.0 Hypertensive heart and chronic kidney disease with heart failure and stage 1 through stage 4 chronic kidney disease, or unspecified chronic kidney disease; E11.40 Type 2 diabetes mellitus with diabetic neuropathy, unspecified; R06.03 Acute respiratory distress; D63.8 Anemia in other chronic diseases classified elsewhere; E11.22 Type 2 diabetes mellitus with diabetic chronic kidney disease; E66.01 Morbid (severe) obesity due to excess calories; E78.00 Pure hypercholesterolemia, unspecified; E78.5 Hyperlipidemia, unspecified; G47.33 Obstructive sleep apnea (adult) (pediatric); I25.10 Atherosclerotic heart disease of native coronary artery without angina pectoris; I25.2 Old myocardial infarction; I27.20 Pulmonary hypertension, unspecified; I45.10 Unspecified right bundle-branch block; N18.9 Chronic kidney disease, unspecified; R09.02 Hypoxemia; Z82.49 Family history of ischemic heart disease and other diseases of the circulatory system; Z90.49 Acquired absence of other specified parts of digestive tract; Z90.710 Acquired absence of both cervix and uterus; Z95.0 Presence of cardiac pacemaker; Z95.1 Presence of aortocoronary bypass graft; Z96.659 Presence of unspecified artificial knee joint; G89.29 Other chronic pain; K21.9 Gastro-esophageal reflux disease without esophagitis; M19.90 Unspecified osteoarthritis, unspecified site; Z20.822 Contact with and (suspected) exposure to COVID-19; Z68.39 Body mass index [BMI] 39.0-39.9, adult
CPT/HCPCS: 36415; 71045; 71275; 80048; 80053; 80061; 82962; 83735; 83880; 84100; 84484; 85025; 85379; 87426; 93005; 93308; 93971; 96374; J1650; J1815; J1940; J2920; J3490; Q9967; U0003; U0005; 97116-GP; 97530-GO; 97535-GO; 99285-25; G0378

== ENCOUNTER 2021-04-23 18:23 | Observation (INO) | payer MEDICARE, MEDICAID ==
[~2021-04-23] VITALS: Ht 162.6 cm; Wt 104.6 kg
[~2021-04-23 18:23] MED LIST changes: +CARV6.253 PO; +OXYC1TAB20 PO; +PANT40TA6 PO; +TRAZ-123 PO; +ZOLP10TA PO
--- NOTE | 2021-04-23 22:45 | RAD ---
AP chest x-ray HISTORY: Cough and shortness of breath. COMPARISON: Chest x-ray March 23, 2021 FINDINGS: Dual-chamber implanted cardiac device. Coronary bypass surgery. Cardiomegaly stable. Pulmon elodia interstitial and alveolar infiltrates grossly stable. No pneumothorax. No pleural effusions. IMPRESSION: Pulmonary airspace disease is stable to could represent pulmonary edema or disseminated i nfection including atypical viral pneumonia. Cardiomegaly is stable. Electronically signed by: Martinez Scott MD (04/23/2021 10:43 PM) [facility]
--- NOTE | 2021-04-23 22:52 | PHYS DOC ---
Past Medical History Past Medical History: CAD, CHF, COPD, Diabetes-Type II, High Cholesterol, Hypertension, VT, Other Additional Past Medical Histor: O2 @ 2-3 L , chronic pain, NEUROPATHY Past Surgical History: Appendectomy, Cholecystectomy, Coronary Bypass Surgery, Hysterectomy, Knee Replacement, Other Additional Past Surgical Histo: HERNIA REPAIR, CABG X 2 VESSELS 2015; breast reduction; L knee Smoking Status: Never Smoker Alcohol Use: None Drug Use: None General Adult EDM: Chief Complaint: COUGH HPI: HPI: Patient is a 66 year old female with history of diastolic HF, COPD, HTN, HLD, DM who presents with 1-2 weeks of increasing cough and shortness of breath. Cough is productive of green sputum. Has chest tightness across the front of her chest and into her shoulder blades. She states that it is sharp and worse with coughing. Also worse with laying flat or with exerting herself. She states that her swelling in her legs may have actually gone down during this timeframe. Last weighed herself at 212 pounds. Review of Systems: Review of Systems: Constitutional: Denies fever or chills. [] Eyes: Denies change in visual acuity. [] HENT: Denies nasal congestion or sore throat. [] Respiratory: Denies cough or shortness of breath. [] Cardiovascular: Denies chest pain or edema. [] GI: Denies abdominal pain, nausea, vomiting, bloody stools or diarrhea. [] : Denies dysuria. [] Musculoskeletal: Denies back pain or joint pain. [] Integument: Denies rash. [] Neurologic: Denies headache, focal weakness or sensory changes. [] Endocrine: Denies polyuria or polydipsia. [] Lymphatic: Denies swollen glands. [] Psychiatric: Denies depression or anxiety. [] Heart Score: C/O Chest Pain: Yes HEART Score for Chest Pain: HEART Score for Chest Pain Response (Comments) Value History Slighlty/Non-Suspicious 0 Age > 65 2 Risk Factors >3 Risk Factors or Hx CAD 2 Total 4 Risk Factors: Risk Factors: DM, HTN, HLP, history of CAD, obesity. Risk Scores: Score 0 - 3: 2.5% MACE over next 6 weeks - Discharge Home Score 4 - 6: 20.3% MACE over next 6 weeks - Admit for Clinical Observation Score 7 - 10: 72.7% MACE over next 6 weeks - Early Invasive Strategies Current Medications: Current Medications Medications (Trade) Dose Ordered Sig/Susan Start Time Stop Time Status Last Admin Dose Admin Albuterol Sulfate (Ventolin Neb Soln) 2.5 mg 1X ONCE 04/23/21 23:00 04/23/21 23:01 Doxycycline Hyclate (Vibra-Tab) 100 mg 1X ONCE 04/23/21 23:00 04/23/21 23:01 Ondansetron HCl (Zofran) 4 mg 1X ONCE 04/23/21 23:00 04/23/21 23:01 Allergies: Allergies: Allergies Coded Allergies Type Severity Reaction Last Updated Verified No Known Drug Allergies 03/23/21 No Physical Exam: PE: Constitutional: Appears fatigued. Mild increased work of breathing. No distress. HENT: Normocephalic, atraumatic Neck: Normal range of motion, no tenderness, supple, no stridor. [] Cardiovascular:Heart rate regular rhythm, no murmur [] Lungs & Thorax: Mild tachypnea. Expiratory wheezes diffusely. Abdomen: Bowel sounds normal, soft, no tenderness, no masses, no pulsatile masses. [] Skin: Warm, dry, no erythema, no rash. [] Extremities: Mild symmetric pitting lower extremity edema to the mid hobbs. Neurologic: Alert and oriented X 3, normal motor function, normal sensory f unction, no focal deficits noted. [] Psychologic: Affect normal, judgement normal, mood normal. [] Current Patient Data: Vital Signs: Vital Signs Date Time Temp Pulse Resp B/P (MAP) Pulse Ox O2 Delivery O2 Flow Rate FiO2 04/23/21 19:14 98.2 78 20 179/76 (110) 99 Nasal Cannula 2.0 98.2 EKG: EKG: [] Radiology/Procedures: Radiology/Procedures: [] Impression: [facility] [address] [place], [place] [id number] IMAGING REPORT Signed PATIENT: GRETCHEN BONILLA EACCOUNT: [id number] : 1955 LOCATION: ER AGE: 66 SEX: F EXAM STATUS: REG ER ORD. PHYSICIAN: ZULMA SANTOYO MD REASON: cough, sob PROCEDURE: CHEST AP ONLY AP chest x-ray HISTORY: Cough and shortness of breath. COMPARISON: Chest x-ray March 23, 2021 FINDINGS: Dual-chamber implanted cardiac device. Coronary bypass surgery. Cardiomegaly stable. Pulmonary interstitial and alveolar infiltrates grossly stable. No pneumothorax. No pleural effusions. IMPRESSION: Pulmonary airspace disease is stable to could represent pulmonary ed angela or disseminated infection including atypical viral pneumonia. Cardiomegaly is stable. Electronically signed by: Justin Scott MD (04/23/2021 10:43 PM) [facility] [place] DICTATED and SIGNED BY: JUSTIN SCOTT MD DATE: 04/23/21 [id number] 0 Course & Med Decision Making: Course & Med Decision Making Pertinent Labs and Imaging studies reviewed. (See chart for details) Patient is a 66-year-old female with history of HF, COPD on 2-3 L/min nasal cannula, HTN, HLD, DM who presents with 1-2 weeks of productive cough, shortness of breath. On arrival is afebrile, hemodynamically stable, satting well on her home O2. Exam with diffuse expiratory wheezes bilaterally, and with productive sputum is concerning for COPD exacerbation. Will be treated with steroids, albuterol, doxycycline. Rapid covid and flu negative. Chest x-ray without focal infiltrate, stable from last film. EKG AV paced. Troponin negative. given 1 week + of chest discomfort should be sufficient to exclude NSTEMI. Vitals have remained stable. Discussed discharge with treatment for COPD exacerbation and patient states she was "hoping to be observed overnight." I explained there did not seem to be a medical reason to keep her, then she told me she ran out of her last O2 tank tonight. As I cannot confirm her O2 availability will be placed in observation status until this can be clarified in the morning. Dragon Disclaimer: Draghollie Disclaimer: This electronic medical record was generated, in whole or in part, using a voice recognition dictation system. Departure Departure Impression: Primary Impression: COPD exacerbation Additional Impression: Chest discomfort Disposition: ADMITTED INPATIENT Admitting Physician: MAGNUS Condition: STABLE Referrals: NO PCP (PCP) ZULMA SANTOYO MD Apr 23, 2021 22:52
[2021-04-23 22:58] LABS: BASO % 1 % (0-3); EOS # 0.1 x10^3/uL (0.0-0.7); EOS % 1 % (0-3); HEMATOCRIT 33.2 % (36.0-47.0); HEMOGLOBIN 10.8 g/dL (12.0-15.5); LYMPH # 1.3 x10^3/uL (1.0-4.8); LYMPH % 21 % (24-48); MEAN CORPUSCULAR HEMOGLOBIN 29 pg (25-35); MEAN CORPUSCULAR HGB CONC 32 g/dL (31-37); MEAN CORPUSCULAR VOLUME 90 fL (79-100); MONO # 0.5 x10^3/uL (0.0-1.1); MONO % 8 % (0-9); NEUT # 4.4 x10^3/uL (1.8-7.7); NEUT % 70 % (31-73); PLATELET COUNT 234 x10^3/uL (140-400); RED BLOOD COUNT 3.69 x10^6/uL (3.50-5.40); RED CELL DISTRIBUTION WIDTH 16.9 % (11.5-14.5); WHITE BLOOD COUNT 6.3 x10^3/uL (4.0-11.0)
[2021-04-23] MEDS ORDERED: NITROGLYCERIN SUBLINGUAL 0.4 MG BOTTLE OF 25. SL PRN (23:00)
[2021-04-23] MEDS ORDERED: DOXYCYCLINE HYCLATE 100 MG TABLET PO ONE (23:00)
[2021-04-23] MEDS ORDERED: ALBUTEROL SULFATE 2.5 MG/3 ML NEBU. NEB ONE (23:00)
[2021-04-23] MEDS ORDERED: ONDANSETRON PF 4 MG/2 ML VIAL. IVP ONE (23:00)
[2021-04-23 23:04] LABS: INFLUENZA A PATIENT NEGATIVE (NEGATIVE); INFLUENZA B PATIENT NEGATIVE (NEGATIVE)
[2021-04-23] MEDS ORDERED: predniSONE 10 MG TABLET PO ONE (23:30)
[2021-04-24 00:01] LABS: ALBUMIN 3.3 g/dL (3.4-5.0); ALBUMIN/GLOBULIN RATIO 0.7 (1.0-1.7); CALCIUM 9.5 mg/dL (8.5-10.1); CREATININE 0.8 mg/dL (0.6-1.0); GFR 86.6; MAGNESIUM 2.3 mg/dL (1.8-2.4); POTASSIUM 4.3 mmol/L (3.5-5.1); TOTAL BILIRUBIN 0.3 mg/dL (0.2-1.0)
[2021-04-24] MEDS ORDERED: ACETAMINOPHEN 500 MG TABLET PO ONE (01:00)
[2021-04-24] MEDS ORDERED: CARV25TA2 PO (02:47)
[2021-04-24] MEDS ORDERED: SPIR25TA5 PO (02:47)
[2021-04-24 02:50] VITALS: BP 157/49
[2021-04-24] MEDS ORDERED: C.DIFF MED SCREEN BY RX. MC ONE (03:15)
[2021-04-24 07:00] VITALS: BP 157/46
[2021-04-24] MEDS ORDERED: guaiFENesin DM 200MG/20MG 10 ML SYRUP PO PRN (07:45)
[2021-04-24] MEDS ORDERED: FUROSEMIDE 40 MG/4 ML VIAL. IVP ONE (07:45)
[2021-04-24] MEDS ORDERED: ONDANSETRON PF 4 MG/2 ML VIAL. IVP PRN ×2 (07:45→08:45)
[2021-04-24] MEDS ORDERED: ACETAMINOPHEN 325 MG TABLET. PO PRN ×2 (07:45→08:45)
[2021-04-24] MEDS ORDERED: ALBUTEROL SULFATE 2.5 MG/3 ML NEBU. NEB PRN (07:45)
[2021-04-24] MEDS ORDERED: oxyCODONE/APAP 10/325 1 TAB TABLET PO PRN (07:45)
[2021-04-24] MEDS: IPRATRPIUM/ALBUTEROL 0.5/2.5MG 3 ML NEBU. NEB SCH ×4 (08:00→18:19)
[2021-04-24] MEDS: CARVEDILOL 12.5 MG TABLET. PO SCH ×2 (08:16→16:59)
[2021-04-24] MEDS: PANTOPRAZOLE 40 MG TABLET.DR. PO SCH (08:16)
--- NOTE | 2021-04-24 08:40 | PDOC1 ---
History and Physical Date of Service: DOS: DATE: 04/24/21 TIME: 08:35 Chief Complaint: Chief Complain: Shortness of breath History of Present Illness: HPI: 66 year old female with history of diastolic HF, COPD, HTN, HLD, DM who presents with 1-2 weeks of increasing cough and shortness of breath. Cough is productive of green sputum. Has chest tightness across the front of her chest and into her shoulder blades. She states that it is sharp and worse with coughing. Also worse with laying flat or with exerting herself. She states that her swelling in her legs may have actually gone down during this timeframe. Last weighed herself at 212 pounds. Past Medical/Surgical History: PMH/PSH: Past Medical History: CAD, CHF, COPD, Diabetes-Type II, High Cholesterol, Hypertension, PA, O2 @ 2-3 L , chronic pain, NEUROPATHY Past Surgical History: Appendectomy, Cholecystectomy, Coronary Bypass Surgery, Hysterectomy, Knee Replacement, HERNIA REPAIR, CABG X 2 VESSELS 2014; breast reduction; L knee Allergies: Allergies: Coded Allergies: No Known Drug Allergies (Unverified , 03/23/21) Family History: Family History: Reviewed with no relevant findings in the chart Social History: Social History: Smoking Status: Never Smoker Alcohol Use: None Drug Use: None Current Medications: Current Medications Current Medications Albuterol Sulfate (Ventolin Neb Soln) 2.5 mg 1X ONCE NEB ; Start 04/23/21 at 23:00; Stop 04/23/21 at 23:01; Status DC Ondansetron HCl (Zofran) 4 mg 1X ONCE IVP Last administered on 04/23/21at 23:28; Start 04/23/21 at 23:00; Stop 04/23/21 at 23:01; Status DC Doxycycline Hyclate (Vibra-Tab) 100 mg 1X ONCE PO Last administered on 04/23/21at 23:27; Start 04/23/21 at 23:00; Stop 04/23/21 at 23:01; Status DC Prednisone (Prednisone) 50 mg 1X ONCE PO Last administered on 04/23/21at 23:27; Start 04/23/21 at 23:30; Stop 04/23/21 at 23:31; Status DC Nitroglycerin (Nitrostat) 0.4 mg PRN Q5MIN PRN SL CHEST PAIN Last administered on 04/23/21at 23:28; Start 04/23/21 at 23:00 Acetaminophen (Tylenol) 1,000 mg 1X ONCE PO Last administered on 04/24/21at 00:59; Start 04/24/21 at 01:00; Stop 04/24/21 at 01:01; Status DC Pharmacy Consult (C.diff Med Screen By Rx) 1 each 1X ONCE [facility] ; Start 04/24/21 at 03:15; Stop 04/24/21 at 03:17; Status DC Doxycycline Hyclate (Vibra-Tab) 100 mg BID PO ; Start 04/24/21 at 09:00; Stop 04/29/21 at 08:59 Prednisone (Prednisone) 40 mg DAILY PO ; Start 04/24/21 at 09:00; Stop 04/29/21 at 08:59 Acetaminophen (Tylenol) 650 mg PRN Q6HRS PRN PO MILD PAIN / TEMP > 100.3'F; Start 04/24/21 at 07:45 Albuterol/ Ipratropium (Duoneb) 3 ml RTQID NEB ; Start 04/24/21 at 08:00 Albuterol Sulfate (Ventolin Neb Soln) 2.5 mg PRN Q4HRS PRN NEB SHORTNESS OF BREATH; Start 04/24/21 at 07:45 Budesonide (Pulmicort) 0.5 mg RTBID NEB ; Start 04/24/21 at 08:00 Guaifenesin (Robitussin Dm) 10 ml PRN Q6HRS PRN PO COUGH; Start 04/24/21 at 07:45 Ondansetron HCl (Zofran) 4 mg PRN Q4HRS PRN IVP NAUSEA/VOMITING; Start 04/24/21 at 07:45 Enoxaparin Sodium (Lovenox 40mg Syringe) 40 mg Q24H SQ ; Start 04/24/21 at 09:00 Furosemide (Lasix) 40 mg 1X ONCE IVP Last administered on 04/24/21at 08:15; Start 04/24/21 at 07:45; Stop 04/24/21 at 07:57; Status DC Amlodipine Besylate (Norvasc) 5 mg DAILY PO ; Start 04/24/21 at 09:00 Aspirin (Ecotrin) 81 mg DAILY PO ; Start 04/24/21 at 09:00 Atorvastatin Calcium (Lipitor) 20 mg HS PO ; Start 04/24/21 at 21:00 Calcium/Vitamin D (Oscal D 500mg/ 200uts) 1 tab DAILY PO ; Start 04/24/21 at 09:00 Clopidogrel Bisulfate (Plavix) 75 mg DAILY PO ; Start 04/24/21 at 09:00 Empaglifozin (Jardiance) 10 mg DAILY PO ; Start 04/24/21 at 09:00 Fluoxetine HCl (PROzac) 20 mg DAILY PO ; Start 04/24/21 at 09:00 Hydralazine HCl (Apresoline) 50 mg TID PO ; Start 04/24/21 at 09:00 Insulin Human Lispro (HumaLOG) 8 units TIDAC SQ ; Start 04/24/21 at 11:30 Oxycodone/ Acetaminophen (Percocet 10/325) 1 tab PRN Q8HRS PRN PO PAIN; Start 04/24/21 at 07:45 Pantoprazole Sodium (Protonix) 40 mg DAILYAC PO Last administered on 04/24/21at 08:16; Start 04/24/21 at 08:00 Spironolactone (Aldactone) 25 mg DAILY PO ; Start 04/24/21 at 09:00 Trazodone HCl (Desyrel) 100 mg QHS PO ; Start 04/24/21 at 21:00 Carvedilol (Coreg) 25 mg BIDWMEALS PO Last administered on 04/24/21at 08:16; Start 04/24/21 at 08:00 Insulin Glargine (Lantus Syringe) 8 unit QHS SQ ; Start 04/24/21 at 21:00 Isosorbide Mononitrate (Imdur) 60 mg DAILY PO ; Start 04/24/21 at 09:00 Losartan Potassium (Cozaar) 100 mg DAILY PO ; Start 04/24/21 at 09:00 Active Scripts Active Protonix (Pantoprazole Sodium) 40 Mg Tablet.dr 40 Mg PO DAILYAC 60 Days Reported Spironolactone 25 Mg Tablet 1 Tab PO DAILY Carvedilol 25 Mg Tablet 1 Tab PO BID Lantus Solostar (Insulin Glargine,Hum.rec.anlog) 100 Unit/1 Ml Insuln.pen 8 Unit SQ QHS Trazodone Hcl 100 Mg Tablet 1 Tab PO QHS Hydralazine Hcl 50 Mg Tablet 1 Tab PO TID Jardiance (Empagliflozin) 10 Mg Tablet 1 Tab PO DAILY Isosorbide Mononitrate Er (Isosorbide Mononitrate) 60 Mg Tab.er.24h 1 Tab PO DAILY Bumetanide 2 Mg Tablet 2 Mg PO DAILY Ambien (Zolpidem Tartrate) 10 Mg Tablet 10 Mg PO PRN QHS PRN Percocet 10-325 Mg Tablet (Oxycodone/Acetaminophen) 1 Each Tablet 1 Tab PO PRN Q4HRS PRN MDD 6 Tablet(s) 5 Days Amlodipine Besylate 5 Mg Tablet 5 Mg PO DAILY Humalog (Insulin Lispro) 100 Unit/1 Ml Vial 8 Unit SQ TIDAC Ventolin Hfa Inhaler (Albuterol Sulfate) 18 Gm Hfa.aer.ad 2 Puff INH [id number] Potassium Chloride (Potassium Chloride) 20 Meq Tablet.er 20 Meq PO BIDWMEALS Clopidogrel (Clopidogrel Bisulfate) 75 Mg Tablet 75 Mg PO DAILY Losartan Potassium 100 Mg Tablet 100 Mg PO DAILY Calcium 500 + Vit D 200 Caplet (Calcium Carbonate/Vitamin D3) 1 Each Tablet 1 Each PO DAILY Fluoxetine Hcl 20 Mg Capsule 1 Cap PO DAILY Atorvastatin Calcium 20 Mg Tablet 20 Mg PO HS Aspir 81 (Aspirin) 81 Mg Tablet.dr 1 Tab PO DAILY ROS: Review of Systems Review of System REVIEW OF SYSTEMS: GENERAL: Denies weakness SKIN: No bruising, hair changes or rashes. EYES: No blurred, double or loss of vision. NOSE AND THROAT: No history of nosebleeds, hoarseness or sore throat. HEART: No history of palpitations, chest pain or shortness of breath on exertion. LUNGS: Positive for shortness of breath GASTROINTESTINAL: Denies changes in appetite, nausea, vomiting, diarrhea or constipation. GENITOURINARY: No history of frequency, urgency, hesitancy or nocturia. NEUROLOGIC: Denies history of numbness, tingling, or tremor. PSYCHIATRIC: No history of panic, anxiety or depression. ENDOCRINE: No history of heat or cold intolerance, polyuria or polydipsia. EXTREMITIES: Denies joint pain, pain on walking or stiffness. Physical Exam: Vital Signs: Vital Signs Date Time Temp Pulse Resp B/P (MAP) Pulse Ox O2 Delivery O2 Flow Rate FiO2 04/24/21 08:22 Nasal Cannula 2.0 04/24/21 08:16 56 157/46 04/24/21 07:00 98.8 20 97 98.8 Physcial Exam: General: Well developed, well nourished, no acute distress, well appearing HEENT: Pupils equally round and reactive to light, EOMI, no discharge, normal conjunctiva Neck: Supple, no nuchal rigidity, no JVD, trachea midline, no tenderness Cardiac: RRR, no murmurs, no gallops, no rubs Chest/Lungs: CTAB, bilateral expiratory wheeze, no rhonchi, no crackles Abdomen: soft, non-distended, no guarding, no peritoneal signs, non-tender Back: No tenderness Extremities: no edema, pulses intact, non-tender,capillary refill <3 sec bilateral upper and lower extremities, Neuro: Alert and oriented x 4, no focal deficits, normal speech Labs: Labs: Laboratory Tests Test 04/23/21 22:30 04/23/21 22:50 04/23/21 23:15 04/24/21 02:00 Influenza Type A Antigen Negative (NEGATIVE) Influenza Type B Antigen Negative (NEGATIVE) SARS-CoV-2 Antigen (Rapid) Negative (NEGATIVE) White Blood Count 6.3 x10^3/uL (4.0-11.0) Red Blood Count 3.69 x10^6/uL (3.50-5.40) Hemoglobin 10.8 g/dL (12.0-15.5) Hematocrit 33.2 % (36.0-47.0) Mean Corpuscular Volume 90 fL (79-100) Mean Corpuscular Hemoglobin 29 pg (25-35) Mean Corpuscular Hemoglobin Concent 32 g/dL (31-37) Red Cell Distribution Width 16.9 % (11.5-14.5) Platelet Count 234 x10^3/uL (140-400) Neutrophils (%) (Auto) 70 % (31-73) Lymphocytes (%) (Auto) 21 % (24-48) Monocytes (%) (Auto) 8 % (0-9) Eosinophils (%) (Auto) 1 % (0-3) Basophils (%) (Auto) 1 % (0-3) Neutrophils # (Auto) 4.4 x10^3/uL (1.8-7.7) Lymphocytes # (Auto) 1.3 x10^3/uL (1.0-4.8) Monocytes # (Auto) 0.5 x10^3/uL (0.0-1.1) Eosinophils # (Auto) 0.1 x10^3/uL (0.0-0.7) Basophils # (Auto) 0.0 x10^3/uL (0.0-0.2) Sodium Level 141 mmol/L (136-145) Potassium Level 4.3 mmol/L (3.5-5.1) Chloride Level 103 mmol/L (98-107) Carbon Dioxide Level 34 mmol/L (21-32) Anion Gap 4 (6-14) Blood Urea Nitrogen 16 mg/dL (7-20) Creatinine 0.8 mg/dL (0.6-1.0) Estimated GFR (Cockcroft-Gault) 86.6 BUN/Creatinine Ratio 20 (6-20) Glucose Level 98 mg/dL (70-99) Calcium Level 9.5 mg/dL (8.5-10.1) Magnesium Level 2.3 mg/dL (1.8-2.4) Total Bilirubin 0.3 mg/dL (0.2-1.0) Aspartate Amino Transf (AST/SGOT) 17 U/L (15-37) Alanine Aminotransferase (ALT/SGPT) 29 U/L (14-59) Alkaline Phosphatase 87 U/L (46-116) Troponin I High Sensitivity 24 ng/L (4-50) 24 ng/L (4-50) WC-Dzf-X-Type Natriuretic Peptide 3247 pg/mL (0-124) Total Protein 8.0 g/dL (6.4-8.2) Albumin 3.3 g/dL (3.4-5.0) Albumin/Globulin Ratio 0.7 (1.0-1.7) Test 04/24/21 07:49 Glucose (Fingerstick) 197 mg/dL (70-99) Laboratory Tests Test 04/23/21 22:30 04/23/21 22:50 04/23/21 23:15 04/24/21 02:00 Influenza Type A Antigen Negative (NEGATIVE) Influenza Type B Antigen Negative (NEGATIVE) SARS-CoV-2 Antigen (Rapid) Negative (NEGATIVE) White Blood Count 6.3 x10^3/uL (4.0-11.0) Red Blood Count 3.69 x10^6/uL (3.50-5.40) Hemoglobin 10.8 g/dL (12.0-15.5) Hematocrit 33.2 % (36.0-47.0) Mean Corpuscular Volume 90 fL (79-100) Mean Corpuscular Hemoglobin 29 pg (25-35) Mean Corpuscular Hemoglobin Concent 32 g/dL (31-37) Red Cell Distribution Width 16.9 % (11.5-14.5) Platelet Count 234 x10^3/uL (140-400) Neutrophils (%) (Auto) 70 % (31-73) Lymphocytes (%) (Auto) 21 % (24-48) Monocytes (%) (Auto) 8 % (0-9) Eosinophils (%) (Auto) 1 % (0-3) Basophils (%) (Auto) 1 % (0-3) Neutrophils # (Auto) 4.4 x10^3/uL (1.8-7.7) Lymphocytes # (Auto) 1.3 x10^3/uL (1.0-4.8) Monocytes # (Auto) 0.5 x10^3/uL (0.0-1.1) Eosinophils # (Auto) 0.1 x10^3/uL (0.0-0.7) Basophils # (Auto) 0.0 x10^3/uL (0.0-0.2) Sodium Level 141 mmol/L (136-145) Potassium Level 4.3 mmol/L (3.5-5.1) Chloride Level 103 mmol/L (98-107) Carbon Dioxide Level 34 mmol/L (21-32) Anion Gap 4 (6-14) Blood Urea Nitrogen 16 mg/dL (7-20) Creatinine 0.8 mg/dL (0.6-1.0) Estimated GFR (Cockcroft-Gault) 86.6 BUN/Creatinine Ratio 20 (6-20) Glucose Level 98 mg/dL (70-99) Calcium Level 9.5 mg/dL (8.5-10.1) Magnesium Level 2.3 mg/dL (1.8-2.4) Total Bilirubin 0.3 mg/dL (0.2-1.0) Aspartate Amino Transf (AST/SGOT) 17 U/L (15-37) Alanine Aminotransferase (ALT/SGPT) 29 U/L (14-59) Alkaline Phosphatase 87 U/L (46-116) Troponin I High Sensitivity 24 ng/L (4-50) 24 ng/L (4-50) LD-Umo-T-Type Natriuretic Peptide 3247 pg/mL (0-124) Total Protein 8.0 g/dL (6.4-8.2) Albumin 3.3 g/dL (3.4-5.0) Albumin/Globulin Ratio 0.7 (1.0-1.7) Test 04/24/21 07:49 Glucose (Fingerstick) 197 mg/dL (70-99) Images: Images PROCEDURE: CHEST AP ONLY AP chest x-ray HISTORY: Cough and shortness of breath. COMPARISON: Chest x-ray March 23, 2021 FINDINGS: Dual-chamber implanted cardiac device. Coronary bypass surgery. Cardio megaly stable. Pulmonary interstitial and alveolar infiltrates grossly stable. No pneumothorax. No pleural effusions. IMPRESSION: Pulmonary airspace disease is stable to could represent pulmonary edema or disseminated infection including atypical viral pneumonia. Cardiomegaly is stable. Assessment/Plan Assessment/Plan Acute hypoxic respiratory distress due to COPD exacerbation Hypertensive urgency Anemia of chronic disease Elevated BNP likely due to chronic hypoxia Morbid obesity History of diabetes mellitus type 2 History of hypertension History of CABG, heart score 6 Strong cardiac family history Admit to medicine for further management Pulmonology consult Albuterol nebulizer treatments every 6 hours as needed IV Solu-Medrol x3 days IV antihypertensive regimen to maintain systolic blood pressure between 140-180 while admitted Lovenox for DVT prophylaxis Protonix while on steroids GI prophylaxis ADA diet Full code Discussed with RN and SW Disposition inpatient management as above Surrogate decision maker is Jessica Santamaria In addition to my E/M visit, advance care planning done with A total time of 20 minutes was spent from 830 to 850 face to face in discussion regarding the patient's goals of care, CODE STATUS. Justifications for Admission Other Justification COPD exacerbation DEIDRE WELLINGTON MD Apr 24, 2021 08:40
[2021-04-24] MEDS ORDERED: diphenhydrAMINE HCL 25 MG CAPSULE PO PRN ×2 (08:45)
[2021-04-24] MEDS ORDERED: PROCHLORPERAZINE 10 MG/2 ML VIAL. IV PRN (08:45)
[2021-04-24] MEDS ORDERED: SENNOSIDES 8.6 MG TABLET PO PRN (08:45)
[2021-04-24] MEDS ORDERED: DOCUSATE SODIUM 100 MG CAPSULE. PO PRN (08:45)
[2021-04-24] MEDS ORDERED: ZOLPIDEM 5 MG TABLET. PO PRN (08:45)
[2021-04-24] MEDS ORDERED: DEXTROSE 50% 25 GM / 50ML DISP.SYRIN. IV PRN (08:45)
[2021-04-24] MEDS ORDERED: LORazepam 0.5 MG TABLET PO PRN (08:45)
[2021-04-24] MEDS ORDERED: diphenhydrAMINE 50 MG/ML VIAL IVP PRN (08:45)
[2021-04-24] MEDS ORDERED: cefTRIAXone IV Push 1 GM VIAL. IVP SCH (09:00)
[2021-04-24] MEDS: ASPIRIN ENTERIC COATED 81 MG TABLET.DR. PO SCH (09:19)
[2021-04-24] MEDS: SPIRONOLACTONE 25 MG TABLET PO SCH (09:20)
[2021-04-24] MEDS: predniSONE 20 MG TABLET PO SCH (09:20)
[2021-04-24] MEDS: ISOSORBIDE MONONITRATE ER 30 MG TAB.ER.24H PO SCH (09:20)
[2021-04-24] MEDS: ENOXAPARIN 40 MG/0.4 ML SYRINGE. SQ SCH (09:21)
[2021-04-24] MEDS: CALCIUM CARB/VIT D3 500/200 TABLET. PO SCH (09:21)
[2021-04-24] MEDS: FLUoxetine HCL 20 MG CAPSULE PO SCH (09:21)
[2021-04-24] MEDS: LOSARTAN POTASSIUM 50 MG TABLET. PO SCH (09:21)
[2021-04-24] MEDS: CLOPIDOGREL BISULFATE 75 MG TABLET PO SCH (09:21)
[2021-04-24] MEDS: DOXYCYCLINE HYCLATE 100 MG TABLET PO SCH ×2 (09:21→21:49)
[2021-04-24] MEDS ORDERED: methylPREDNISolone SOD SUCC PF 40 MG/ML VIAL. IV SCH (09:30)
[2021-04-24] MEDS ORDERED: AZITHROMYCIN 500 MG in IV NORMAL SALINE 250ML 250 ML IV SCH (10:00)
[2021-04-24] MEDS ORDERED: ENOXAPARIN 40 MG/0.4 ML SYRINGE. SQ SCH (10:00)
--- NOTE | 2021-04-24 10:05 | NUR ---
SW following. Discussed with RN, pt from home, has oxygen at home. Flu and Rapid COVID-19 negative, IV abx. Cardiology following. Pt will discharge home when medically stable. SW will continue to follow.
[2021-04-24] MEDS: EMPAGLIFLOZIN 10 MG TABLET. PO SCH (10:38)
[2021-04-24 11:00] VITALS: BP 127/43
[2021-04-24] MEDS: BUDESONIDE 0.5 MG/2 ML NEBU. NEB SCH ×2 (11:19→18:19)
--- NOTE | 2021-04-24 11:20 | PDOC2 ---
REDDY MARTINEZ MEDIA MARKETING COORDINATOR 04/24/21 1120: CARDIAC CONSULT DATE OF CONSULT Date of Consult DATE: 04/24/21 TIME: 11:06 REASON FOR CONSULT Reason for Consult: Possible CHF REFERRING PHYSICIAN Referring Physician: [place] SOURCE Source: Chart review, Patient HISTORY OF PRESENT ILLNESS HISTORY OF PRESENT ILLNESS This is a pleasant 66 yo female admitted for coplains of shortness of breah, coughing. Reports that she was at [facility] for CHF close to a month ago. So far she has been hospitalized at least monthly for about a yr now. She has had significnat cardiac workup and cardiac beck she has been stable with intermittent episodes of CHF exacerbation mainly due to uncontrolled BP. Upon admission her SBP was in the 200s citing that she did not take her medications the other day as she was not feeling well. Presently her BP is controlled. In the last 2 weeks she has been having productive cough with yellow sputum and nasal congestion and body aches. No ageusia or anosmia . Had some nausea but no vomiting or diarrhea. Denies recent exposure to covid-19 but claims she had pfizer booster about a week ago. Her renal medicine specialist is from [facility]. She has been having some SOA but no chest pain, no palpitations. PAST MEDICAL HISTORY Past Medical History Cardiovascular: CAD, CHF, HTN, GA, Hyperlipidemia, Other Pulmonary: Bronchitis, COPD CENTRAL NERVOUS SYSTEM: Periperal neuropathy GI: GERD Heme/Onc: No pertinent hx Hepatobiliary: Cholelithiasis Psych: No pertinent hx Musculoskeletal: Osteoarthritis, Weakness Rheumatologic: No pertinent hx Infectious disease: No pertinent hx Renal/: Chronic renal insuff Endocrine: Diabetes PAST SURGICAL HISTORY Past Surgical History Pacemaker, Appendectomy, Cholecystectomy, CABG, Total knee replacement, Hysterectomy FAMILY HISTORY Family History: Hypertension SOCIAL HISTORY Smoke: No ALCOHOL: none Drugs: None Lives: with Family CURRENT MEDICATIONS CURRENT MEDICATIONS Current Medications Medications (Trade) Dose Ordered Sig/Susan Route PRN Reason Start Time Stop Time Status Last Admin Dose Admin Ondansetron HCl (Zofran) 4 mg 1X ONCE IVP 04/23/21 23:00 04/23/21 23:01 DC 04/23/21 23:28 Doxycycline Hyclate (Vibra-Tab) 100 mg 1X ONCE PO 04/23/21 23:00 04/23/21 23:01 DC 04/23/21 23:27 Prednisone (Prednisone) 50 mg 1X ONCE PO 04/23/21 23:30 04/23/21 23:31 DC 04/23/21 23:27 Nitroglycerin (Nitrostat) 0.4 mg PRN Q5MIN PRN SL CHEST PAIN 04/23/21 23:00 04/23/21 23:28 Acetaminophen (Tylenol) 1,000 mg 1X ONCE PO 04/24/21 01:00 04/24/21 01:01 DC 04/24/21 00:59 Doxycycline Hyclate (Vibra-Tab) 100 mg BID PO 04/24/21 09:00 04/29/21 08:59 04/24/21 09:21 Prednisone (Prednisone) 40 mg DAILY PO 04/24/21 09:00 04/29/21 08:59 04/24/21 09:20 Enoxaparin Sodium (Lovenox 40mg Syringe) 40 mg Q24H SQ 04/24/21 09:00 04/24/21 09:21 Furosemide (Lasix) 40 mg 1X ONCE IVP 04/24/21 07:45 04/24/21 07:57 DC 04/24/21 08:15 Amlodipine Besylate (Norvasc) 5 mg DAILY PO 04/24/21 09:00 04/24/21 09:21 Aspirin (Ecotrin) 81 mg DAILY PO 04/24/21 09:00 04/24/21 09:19 Calcium/Vitamin D (Oscal D 500mg/ 200uts) 1 tab DAILY PO 04/24/21 09:00 04/24/21 09:21 Clopidogrel Bisulfate (Plavix) 75 mg DAILY PO 04/24/21 09:00 04/24/21 09:21 Empaglifozin (Jardiance) 10 mg DAILY PO 04/24/21 09:00 04/24/21 10:38 Fluoxetine HCl (PROzac) 20 mg DAILY PO 04/24/21 09:00 04/24/21 09:21 Hydralazine HCl (Apresoline) 50 mg TID PO 04/24/21 09:00 04/24/21 09:20 Oxycodone/ Acetaminophen (Percocet 10/325) 1 tab PRN Q8HRS PRN PO PAIN 04/24/21 07:45 04/24/21 10:48 Pantoprazole Sodium (Protonix) 40 mg DAILYAC PO 04/24/21 08:00 04/24/21 08:16 Spironolactone (Aldactone) 25 mg DAILY PO 04/24/21 09:00 04/24/21 09:20 Carvedilol (Coreg) 25 mg BIDWMEALS PO 04/24/21 08:00 04/24/21 08:16 Isosorbide Mononitrate (Imdur) 60 mg DAILY PO 04/24/21 09:00 04/24/21 09:20 Losartan Potassium (Cozaar) 100 mg DAILY PO 04/24/21 09:00 04/24/21 09:21 ALLERGIES ALLERGIES: Coded Allergies: No Known Drug Allergies (Unverified , 03/23/21) ROS Review of System 14 point ROS evaluated with pertinent positives noted per HPI PHYSICAL EXAM General: Alert, Oriented X3, Cooperative, No acute distress HEENT: Atraumatic, Mucous membr. moist/pink Lungs: Other (diminished with upper mild expiratory wheeze) Heart: Regular rate (not on tele), Normal S1, Normal S2, No murmurs Abdomen: Soft, No tenderness Extremities: No cyanosis, No edema Skin: No breakdown, No significant lesion Neuro: Normal speech, Sensation intact Psych/Mental Status: Mental status NL, Mood NL MUSCULOSKELETAL: Osteoarthritic changes both hands VITALS/I&O VITALS/I&O: Vital Signs Date Time Temp Pulse Resp B/P (MAP) Pulse Ox O2 Delivery O2 Flow Rate FiO2 04/24/21 09:21 56 157/46 04/24/21 08:22 Nasal Cannula 2.0 04/24/21 07:00 98.8 20 97 98.8 I & O 04/23/21 04/23/21 04/24/21 15:00 23:00 07:00 Output Total 0 ml Balance 0 ml LABS Lab: Laboratory Tests Test 04/23/21 22:30 04/23/21 22:50 04/23/21 23:15 04/24/21 02:00 Influenza Type A Antigen Negative (NEGATIVE) Influenza Type B Antigen Negative (NEGATIVE) SARS-CoV-2 RNA (ERIC) Negative (Negative) SARS-CoV-2 Antigen (Rapid) Negative (NEGATIVE) White Blood Count 6.3 x10^3/uL (4.0-11.0) Red Blood Count 3.69 x10^6/uL (3.50-5.40) Hemoglobin 10.8 g/dL (12.0-15.5) L Hematocrit 33.2 % (36.0-47.0) L Mean Corpuscular Volume 90 fL (79-100) Mean Corpuscular Hemoglobin 29 pg (25-35) Mean Corpuscular Hemoglobin Concent 32 g/dL (31-37) Red Cell Distribution Width 16.9 % (11.5-14.5) H Platelet Count 234 x10^3/uL (140-400) Neutrophils (%) (Auto) 70 % (31-73) Lymphocytes (%) (Auto) 21 % (24-48) L Monocytes (%) (Auto) 8 % (0-9) Eosinophils (%) (Auto) 1 % (0-3) Basophils (%) (Auto) 1 % (0-3) Neutrophils # (Auto) 4.4 x10^3/uL (1.8-7.7) Lymphocytes # (Auto) 1.3 x10^3/uL (1.0-4.8) Monocytes # (Auto) 0.5 x10^3/uL (0.0-1.1) Eosinophils # (Auto) 0.1 x10^3/uL (0.0-0.7) Basophils # (Auto) 0.0 x10^3/uL (0.0-0.2) Sodium Level 141 mmol/L (136-145) Potassium Level 4.3 mmol/L (3.5-5.1) Chloride Level 103 mmol/L (98-107) Carbon Dioxide Level 34 mmol/L (21-32) H Anion Gap 4 (6-14) L Blood Urea Nitrogen 16 mg/dL (7-20) Creatinine 0.8 mg/dL (0.6-1.0) Estimated GFR (Cockcroft-Gault) 86.6 BUN/Creatinine Ratio 20 (6-20) Glucose Level 98 mg/dL (70-99) Calcium Level 9.5 mg/dL (8.5-10.1) Magnesium Level 2.3 mg/dL (1.8-2.4) Total Bilirubin 0.3 mg/dL (0.2-1.0) Aspartate Amino Transferase (AST) 17 U/L (15-37) Alanine Aminotransferase (ALT) 29 U/L (14-59) Alkaline Phosphatase 87 U/L (46-116) Troponin I High Sensitivity 24 ng/L (4-50) 24 ng/L (4-50) DS-Cnt-D-Type Natriuretic Peptide 3247 pg/mL (0-124) H Total Protein 8.0 g/dL (6.4-8.2) Albumin 3.3 g/dL (3.4-5.0) L Albumin/Globulin Ratio 0.7 (1.0-1.7) L Test 04/24/21 05:25 04/24/21 07:49 Troponin I High Sensitivity 20 ng/L (4-50) Procalcitonin < 0.10 ng/mL (0.00-0.10) Glucose (Fingerstick) 197 mg/dL (70-99) H Laboratory Tests 04/23/21 22:50 Laboratory Tests 04/23/21 23:15 ASSESSMENT/PLAN ASSESSMENT/PLAN 1. Acute COPD exacerbation possibly precipitated by URI/acute bronchitis 2. Chronic diastolic CHF: clinically compensated 3. Accelerated hypertension; missed meds the other day, now improved 4. CAD: Past CABG. patent SVG to OM and GARCIA to LAD per [facility] 10/2019. Follows with [facility] 5. Secondary pulmonary HTN: Recent RHC 6. VIOLETTA: uses CPAP at home 7. SSS/PPM in situ: [facility]. baseline chronic RBBB 8. DM, II 9. Hyperlipidemia; statin 10. Morbid obesity Recommendations Resume oral Bumex Secondary prevention including DAPT with ASA/Plavix and antianginals Supportive care Follow up with MISBAH LEE MD 04/24/21 1555: CARDIAC CONSULT ASSESSMENT/PLAN ASSESSMENT/PLAN Patient seen and examined. Agree with SENIOR DIRECTOR INSIGHT's assessment and plan. Chronic diastolic heart failure clinically well compensated. Chest pain with atypical features. CAD clinically stable. Recent cardiac catheterization showed patent graft without any lesions needing intervention. SSS s/p PPM, clinically stable Continue current treatment for acute COPD exacerbation Accelerated hypertension secondary to noncompliance, presently better controlled Thank you for your consultation REDDY MARTINEZ APRN Apr 24, 2021 11:20 MISBAH HUFFMAN MD Apr 24, 2021 15:55
[2021-04-24] MEDS ORDERED: PANTOPRAZOLE 40 MG TABLET.DR. PO SCH (11:30)
[2021-04-24] MEDS: BUMETANIDE 1 MG TABLET. PO SCH (11:41)
[2021-04-24] MEDS: INSULIN LISPRO 300 UNITS/3 ML VIAL. SQ SCH ×2 (11:42→17:01)
--- NOTE | 2021-04-24 12:54 | NUR ---
Pharmacy Medication Review S: Consulted for medication review re: C.diff Risk Assessment score of 4 O: GRETCHEN BONILLA is a 66 year old with: Previous C.diff infection: No Previous hospitalization: Within 30 days Recent antibiotics: No Use of gastric acid suppressor: Yes Transfer from GA/LTAC: No Current antibiotic regimen: doxycycline 100 mg PO BID Current acid suppression regimen: pantoprazole 40 mg PO daily A: Patient has been identified as having risk factors for C.diff infection as noted above. P: ABX DE-ESCALATION RECOMMENDED: N - COPD exac, awaiting pulm consult PROBIOTIC ORDERED: Y PPI CHANGED TO [id number]: N - h/o GERD [facility], 04/24/21 0652
[2021-04-24 15:00] VITALS: BP 117/39
--- NOTE | 2021-04-24 15:36 | NUR ---
Pt requesting pain medication, stating she takes percocet 10/325 Q4 hrs PRN at home, ordered currently Q8 hrs PRN. Refer to EMAR for details. This RN notified Dr. Aguirre. Orders received to change frequency of medication to Q6 hrs PRN. Refer to orders for full details.
[2021-04-24] MEDS: oxyCODONE/APAP 10/325 1 TAB TABLET PO PRN (17:03)
[2021-04-24 19:00] VITALS: BP 136/44
[2021-04-24] MEDS: traZODone 100 MG TABLET. PO SCH (21:49)
[2021-04-24] MEDS: LACTOBACILLUS RHAMNOSUS GG 1 CAPSULE. PO SCH (21:49)
[2021-04-24] MEDS: ATORVASTATIN CALCIUM 20 MG TABLET PO SCH (21:49)
[2021-04-24] MEDS: INSULIN GLARGINE SYRINGE. SQ SCH (21:55)
[2021-04-24 23:00] VITALS: BP 106/33
[2021-04-25] MEDS: oxyCODONE/APAP 10/325 1 TAB TABLET PO PRN ×4 (02:07→21:15)
[2021-04-25] MEDS ORDERED: CAPS42.514 TP (02:10)
[2021-04-25 03:00] VITALS: BP 124/43
[2021-04-25 07:00] VITALS: BP 133/55
[2021-04-25] MEDS: IPRATRPIUM/ALBUTEROL 0.5/2.5MG 3 ML NEBU. NEB SCH ×4 (07:20→20:42)
[2021-04-25] MEDS: BUDESONIDE 0.5 MG/2 ML NEBU. NEB SCH ×2 (07:20→20:42)
[2021-04-25] MEDS: CARVEDILOL 12.5 MG TABLET. PO SCH ×2 (09:41→17:00)
[2021-04-25] MEDS: CLOPIDOGREL BISULFATE 75 MG TABLET PO SCH (09:42)
[2021-04-25] MEDS: LOSARTAN POTASSIUM 50 MG TABLET. PO SCH (09:42)
[2021-04-25] MEDS: predniSONE 20 MG TABLET PO SCH (09:42)
[2021-04-25] MEDS: ASPIRIN ENTERIC COATED 81 MG TABLET.DR. PO SCH (09:44)
[2021-04-25] MEDS: PANTOPRAZOLE 40 MG TABLET.DR. PO SCH (09:44)
[2021-04-25] MEDS: EMPAGLIFLOZIN 10 MG TABLET. PO SCH (09:44)
[2021-04-25] MEDS: ISOSORBIDE MONONITRATE ER 30 MG TAB.ER.24H PO SCH (09:44)
[2021-04-25] MEDS: BUMETANIDE 1 MG TABLET. PO SCH (09:44)
[2021-04-25] MEDS: FLUoxetine HCL 20 MG CAPSULE PO SCH (09:44)
[2021-04-25] MEDS: SPIRONOLACTONE 25 MG TABLET PO SCH (09:45)
[2021-04-25] MEDS: LACTOBACILLUS RHAMNOSUS GG 1 CAPSULE. PO SCH ×2 (09:45→21:04)
[2021-04-25] MEDS: CALCIUM CARB/VIT D3 500/200 TABLET. PO SCH (09:45)
[2021-04-25] MEDS: ENOXAPARIN 40 MG/0.4 ML SYRINGE. SQ SCH (09:46)
[2021-04-25] MEDS: INSULIN LISPRO 300 UNITS/3 ML VIAL. SQ SCH ×3 (09:59→18:46)
[2021-04-25 11:00] VITALS: BP 135/41
--- NOTE | 2021-04-25 11:01 | PDOC ---
[employer] PROGRESS NOTE Date of Service DOS: DATE: 04/25/21 TIME: 10:58 Chief Complaint Chief Complaint Cough Shortness of breath History of the following; Past Medical History: CAD, CHF, COPD, Diabetes-Type II, High Cholesterol, Hypertension, MD, Other Additional Past Medical Histor: O2 @ 2-3 L , chronic pain, NEUROPATHY Past Surgical History: Appendectomy, Cholecystectomy, Coronary Bypass Surgery, Hysterectomy, Knee Replacement, Other Additional Past Surgical Histo: HERNIA REPAIR, CABG X 2 VESSELS 2014; breast reduction; L knee History of Present Illness History of Present Illness 04/24/2021 Patient seen and examined Discussed with RN Chart reviewed She seems to have a persistent cough Vitals/I&O Vitals/I&O: Vital Signs Date Time Temp Pulse Resp B/P (MAP) Pulse Ox O2 Delivery O2 Flow Rate FiO2 04/25/21 09:44 55 133/55 04/25/21 09:40 20 100 Nasal Cannula 2.0 04/25/21 07:00 97.6 97.6 I & O 04/24/21 04/24/21 04/25/21 15:00 23:00 07:00 Intake Total 120 ml 100 ml Balance 120 ml 100 ml Physical Exam General: Alert, Oriented X3, Cooperative, No acute distress Heart: Regular rate (not on tele), Normal S1, Normal S2, No murmurs Lungs: Clear, Crackles Abdomen: Soft, No tenderness Extremities: No cyanosis, No edema Skin: No breakdown, No significant lesion Labs Labs: Laboratory Tests Test 04/24/21 11:38 04/24/21 16:59 04/24/21 20:36 04/25/21 07:53 Glucose (Fingerstick) 248 mg/dL (70-99) 150 mg/dL (70-99) 267 mg/dL (70-99) 104 mg/dL (70-99) Assessment and Plan Assessmemt and Plan Problems Medical Problems: (1) Chest discomfort Status: Acut Chest pain Cough Shortness of breath History of the following; Past Medical History: CAD, CHF, COPD, Diabetes-Type II, High Cholesterol, Hypertension, MD, Other Additional Past Medical Histor: O2 @ 2-3 L , chronic pain, NEUROPATHY Past Surgical History: Appendectomy, Cholecystectomy, Coronary Bypass Surgery, Hysterectomy, Knee Replacement, Other Additional Past Surgical Histo: HERNIA REPAIR, CABG X 2 VESSELS 2014; breast reduction; L knee Plan Appreciate cardiology input We will ask for second opinion from pulmonary medicine I added in steroids Augmentin and doxycycline and vitamins Home meds DVT prophylaxis Full code Trend labs Hope to discharge soon if pulmonary agrees. Comment Review of Relevant I have reviewed the following items nolan (where applicable) has been applied. Medications: Current Medications Medications (Trade) Dose Ordered Sig/Susan Route PRN Reason Start Time Stop Time Status Last Admin Dose Admin Atorvastatin Calcium (Lipitor) 20 mg HS PO 04/24/21 21:00 04/24/21 21:49 Insulin Human Lispro (HumaLOG) 8 units TIDAC SQ 04/24/21 11:30 04/25/21 09:59 Trazodone HCl (Desyrel) 100 mg QHS PO 04/24/21 21:00 04/24/21 21:49 Insulin Glargine (Lantus Syringe) 8 unit QHS SQ 04/24/21 21:00 04/24/21 21:55 Bumetanide (Bumex) 1 mg DAILY PO 04/24/21 12:00 04/25/21 09:44 Lactobacillus Rhamnosus (Culturelle) 1 cap BID PO 04/24/21 21:00 04/25/21 09:45 Oxycodone/ Acetaminophen (Percocet 10/325) 1 tab PRN Q6HRS PRN PO MODERATE-SEVERE PAIN 04/24/21 15:45 04/25/21 09:40 Justifications for Admission Other Justification COPD exacerbation PERICO BUCHANAN III DO Apr 25, 2021 11:00
[2021-04-25] MEDS: guaiFENesin/CODEINE 100mg/10mg 5 ML LIQUID PO PRN ×2 (13:32→21:05)
[2021-04-25] MEDS: AMOXICILLIN/K CLAV 875/125MG TABLET. PO SCH ×2 (13:33→21:05)
[2021-04-25] MEDS: MULTIVITAMIN with MINERAL TABLET. PO SCH (13:33)
[2021-04-25] MEDS: DOXYCYCLINE HYCLATE 100 MG TABLET PO SCH ×2 (13:34→21:05)
[2021-04-25 15:00] VITALS: BP 103/36
--- NOTE | 2021-04-25 15:26 | PDOC ---
PROGRESS NOTES Date of Service: DATE: 04/25/21 TIME: 15:26 Subjective Subjective c/o cough Objective Objective Vital Signs Date Time Temp Pulse Resp B/P (MAP) Pulse Ox O2 Delivery O2 Flow Rate FiO2 04/25/21 13:33 55 135/41 04/25/21 11:42 99 Nasal Cannula 2.0 04/25/21 11:00 97.5 18 97.5 Intake and Output 04/25/21 07:00 Intake Total 220 ml Balance 220 ml Intake Oral 220 ml # Voids 1 Physical Exam Abdomen: Soft, No tenderness Heart: Regular rate (not on tele), Normal S1, Normal S2, No murmurs Extremities: No cyanosis, No edema General: Alert, Oriented X3, Cooperative, No acute distress HEENT: Atraumatic, Mucous membr. moist/pink Lungs: Other (diminished with upper mild expiratory wheeze) MUSCULOSKELETAL: Osteoarthritic changes both hands Neuro: Normal speech, Sensation intact Psych/Mental Status: Mental status NL, Mood NL Skin: No breakdown, No significant lesion Assessment Assessment 1. Acute COPD exacerbation possibly precipitated by URI/acute bronchitis 2. Chronic diastolic CHF: clinically compensated 3. Accelerated hypertension; missed meds the other day, now improved 4. CAD: Past CABG. patent SVG to OM and GARCIA to LAD per [facility] 10/2019. Follows with [facility] 5. Secondary pulmonary HTN: Recent RHC 6. VIOLETTA: uses CPAP at home 7. SSS/PPM in situ: [facility]. baseline chronic RBBB 8. DM, II 9. Hyperlipidemia; statin 10. Morbid obesity Recommendations Continue Bumex Secondary prevention including DAPT with ASA/Plavix and antianginals Supportive care Follow up with [facility] Plan Plan of Care Problems Medical Problems: (1) Chest discomfort Status: Acute Comment Review of Relevant I have reviewed the following items nolan (where applicable) has been applied. Labs Laboratory Tests Test 04/24/21 16:59 04/24/21 20:36 04/25/21 07:53 04/25/21 11:22 Glucose (Fingerstick) 150 mg/dL (70-99) 267 mg/dL (70-99) 104 mg/dL (70-99) 190 mg/dL (70-99) Medications Current Medications Amoxicillin/ Clavulanate Potassium (Augmentin 875/ 125mg) 1 tab BID PO Last administered on 04/25/21at 13:33; Start 2/2/22 at 12:00 Atorvastatin Calcium (Lipitor) 20 mg HS PO Last administered on 04/24/21at 21:49; Start 04/24/21 at 21:00 Doxycycline Hyclate 100 mg/ Dextrose 100 ml @ 50 mls/hr Q12HR IV ; Start 04/25/21 at 21:00; Status UNV Guaifenesin/ Codeine Phosphate (Robitussin Ac) 5 ml PRN Q6HRS PRN PO COUGH Last administered on 04/25/21at 13:32; Start 04/25/21 at 11:00 Insulin Glargine (Lantus Syringe) 8 unit QHS SQ Last administered on 04/24/21at 21:55; Start 04/24/21 at 21:00 Lactobacillus Rhamnosus (Culturelle) 1 cap BID PO Last administered on 04/25/21at 09:45; Start 04/24/21 at 21:00 Methylprednisolone Sodium Succinate (SOLU-Medrol 40MG VIAL) 40 mg BID IV ; Start 04/25/21 at 21:00 Multivitamins (Thera M Plus) 1 tab DAILY PO Last administered on 04/25/21at 13:33; Start 04/25/21 at 12:00 Oxycodone/ Acetaminophen (Percocet 10/325) 1 tab PRN Q4HRS PRN PO MODERATE- SEVERE PAIN; Start 04/25/21 at 11:15 Oxycodone/ Acetaminophen (Percocet 10/325) 1 tab PRN Q6HRS PRN PO MODERATE- SEVERE PAIN Last administered on 04/25/21at 09:40; Start 04/24/21 at 15:45; Stop 04/25/21 at 11:10; Status DC Trazodone HCl (Desyrel) 100 mg QHS PO Last administered on 04/24/21at 21:49; Start 04/24/21 at 21:00 Vitals/I & O Vital Sign - Last 24 Hours 04/24/21 04/24/21 04/24/21 04/24/21 15:31 16:59 18:20 19:00 Temp 97.7 97.7 Pulse 64 63 Resp 22 B/P (MAP) 117/39 136/44 (74) Pulse Ox 97 92 94 O2 Delivery Nasal Cannula Nasal Cannula Nasal Cannula O2 Flow Rate 2.0 2.0 2.0 04/24/21 04/24/21 04/24/21 04/25/21 20:30 21:50 23:00 02:07 Pulse 63 56 Resp 20 20 B/P (MAP) 136/44 106/33 (57) Pulse Ox 95 O2 Delivery Nasal Cannula Nasal Cannula Nasal Cannula O2 Flow Rate 2.0 2.0 04/25/21 04/25/21 04/25/21 04/25/21 03:00 07:00 07:23 09:40 Temp 97.8 97.6 97.8 97.6 Pulse 54 55 Resp 20 20 20 B/P (MAP) 124/43 (70) 133/55 (81) Pulse Ox 95 97 100 100 O2 Delivery Nasal Cannula Nasal Cannula Nasal Cannula Nasal Cannula O2 Flow Rate 2.0 2.0 2.0 2.0 04/25/21 04/25/21 04/25/21 04/25/21 09:41 09:41 09:42 09:43 Pulse 55 55 55 55 B/P (MAP) 133/55 133/55 133/55 133/55 04/25/21 04/25/21 04/25/21 04/25/21 09:44 11:00 11:42 13:33 Temp 97.5 97.5 Pulse 55 55 55 Resp 18 B/P (MAP) 133/55 135/41 (72) 135/41 Pulse Ox 97 99 O2 Delivery Nasal Cannula Nasal Cannula O2 Flow Rate 2.0 2.0 Intake and Output 04/24/21 04/24/21 04/25/21 15:00 23:00 07:00 Intake Total 120 ml 100 ml Balance 120 ml 100 ml MISBAH HUFFMAN MD Apr 25, 2021 15:26
--- NOTE | 2021-04-25 16:42 | PDOC ---
PULMONARY PROGRESS NOTES DATE: 04/25/21 TIME: 16:41 Vitals Vital Signs Date Time Temp Pulse Resp B/P (MAP) Pulse Ox O2 Delivery O2 Flow Rate FiO2 04/25/21 13:33 55 135/41 04/25/21 11:42 99 Nasal Cannula 2.0 04/25/21 11:00 97.5 18 97.5 General: Alert, Oriented X4, No acute distress Lungs: Clear, Crackles Cardiovascular: S1, S2 Abdomen: Soft Extremities: No Edema Labs Laboratory Tests Test 04/23/21 22:30 04/23/21 22:50 04/23/21 23:15 04/24/21 02:00 Influenza Type A Antigen Negative (NEGATIVE) Influenza Type B Antigen Negative (NEGATIVE) SARS-CoV-2 RNA (ERIC) Negative (Negative) SARS-CoV-2 Antigen (Rapid) Negative (NEGATIVE) White Blood Count 6.3 x10^3/uL (4.0-11.0) Red Blood Count 3.69 x10^6/uL (3.50-5.40) Hemoglobin 10.8 g/dL (12.0-15.5) Hematocrit 33.2 % (36.0-47.0) Mean Corpuscular Volume 90 fL (79-100) Mean Corpuscular Hemoglobin 29 pg (25-35) Mean Corpuscular Hemoglobin Concent 32 g/dL (31-37) Red Cell Distribution Width 16.9 % (11.5-14.5) Platelet Count 234 x10^3/uL (140-400) Neutrophils (%) (Auto) 70 % (31-73) Lymphocytes (%) (Auto) 21 % (24-48) Monocytes (%) (Auto) 8 % (0-9) Eosinophils (%) (Auto) 1 % (0-3) Basophils (%) (Auto) 1 % (0-3) Neutrophils # (Auto) 4.4 x10^3/uL (1.8-7.7) Lymphocytes # (Auto) 1.3 x10^3/uL (1.0-4.8) Monocytes # (Auto) 0.5 x10^3/uL (0.0-1.1) Eosinophils # (Auto) 0.1 x10^3/uL (0.0-0.7) Basophils # (Auto) 0.0 x10^3/uL (0.0-0.2) Sodium Level 141 mmol/L (136-145) Potassium Level 4.3 mmol/L (3.5-5.1) Chloride Level 103 mmol/L (98-107) Carbon Dioxide Level 34 mmol/L (21-32) Anion Gap 4 (6-14) Blood Urea Nitrogen 16 mg/dL (7-20) Creatinine 0.8 mg/dL (0.6-1.0) Estimated GFR (Cockcroft-Gault) 86.6 BUN/Creatinine Ratio 20 (6-20) Glucose Level 98 mg/dL (70-99) Calcium Level 9.5 mg/dL (8.5-10.1) Magnesium Level 2.3 mg/dL (1.8-2.4) Total Bilirubin 0.3 mg/dL (0.2-1.0) Aspartate Amino Transf (AST/SGOT) 17 U/L (15-37) Alanine Aminotransferase (ALT/SGPT) 29 U/L (14-59) Alkaline Phosphatase 87 U/L (46-116) Troponin I High Sensitivity 24 ng/L (4-50) 24 ng/L (4-50) RB-[id number]-Type Natriuretic Peptide 3247 pg/mL (0-124) Total Protein 8.0 g/dL (6.4-8.2) Albumin 3.3 g/dL (3.4-5.0) Albumin/Globulin Ratio 0.7 (1.0-1.7) Test 04/24/21 05:25 04/24/21 07:49 04/24/21 11:38 04/24/21 16:59 Troponin I High Sensitivity 20 ng/L (4-50) Procalcitonin < 0.10 ng/mL (0.00-0.10) Glucose (Fingerstick) 197 mg/dL (70-99) 248 mg/dL (70-99) 150 mg/dL (70-99) Test 04/24/21 20:36 04/25/21 07:53 04/25/21 11:22 04/25/21 16:27 Glucose (Fingerstick) 267 mg/dL (70-99) 104 mg/dL (70-99) 190 mg/dL (70-99) 122 mg/dL (70-99) Laboratory Tests Test 04/24/21 16:59 04/24/21 20:36 04/25/21 07:53 04/25/21 11:22 Glucose (Fingerstick) 150 mg/dL (70-99) 267 mg/dL (70-99) 104 mg/dL (70-99) 190 mg/dL (70-99) Test 04/25/21 16:27 Glucose (Fingerstick) 122 mg/dL (70-99) Medications Active Scripts Medications Dose Route/Sig Max Daily Dose Days Date Category Capsaicin 42.5 Gm Cream..g. 1 Rahgu TP TID 04/25/21 Reported Spironolactone 25 Mg Tablet 1 Tab PO DAILY 04/24/21 Reported Carvedilol 25 Mg Tablet 1 Tab PO BID 04/24/21 Reported Lantus Solostar (Insulin Glargine,Hum.rec.anlog) 100 Unit/1 Ml Insuln.pen 8 Unit SQ QHS 03/24/21 Reported Trazodone Hcl 100 Mg Tablet 1 Tab PO QHS 03/24/21 Reported Hydralazine Hcl 50 Mg Tablet 1 Tab PO TID 03/24/21 Reported Jardiance (Empagliflozin) 10 Mg Tablet 1 Tab PO DAILY 03/24/21 Reported Isosorbide Mononitrate Er (Isosorbide Mononitrate) 60 Mg Tab.er.24h 1 Tab PO DAILY 03/24/21 Reported Bumetanide 2 Mg Tablet 2 Mg PO DAILY 03/24/21 Reported Ambien (Zolpidem Tartrate) 10 Mg Tablet 10 Mg PO PRN QHS PRN 03/24/21 Reported Percocet 10-325 Mg Tablet (Oxycodone/Acetaminophen) 1 Each Tablet 1 Tab PO PRN Q4HRS PRN MDD 6 Tablet(s) 5 03/24/21 Reported Amlodipine Besylate 5 Mg Tablet 5 Mg PO DAILY 12/28/20 Reported Humalog (Insulin Lispro) 100 Unit/1 Ml Vial 8 Unit SQ TIDAC 12/28/20 Reported Ventolin Hfa Inhaler (Albuterol Sulfate) 18 Gm Hfa.aer.ad 2 Puff INH [id number] 01/08/20 Reported Potassium Chloride (Potassium Chloride) 20 Meq Tablet.er 20 Meq PO BIDWMEALS 01/08/20 Reported Clopidogrel (Clopidogrel Bisulfate) 75 Mg Tablet 75 Mg PO DAILY 10/10/19 Reported Losartan Potassium 100 Mg Tablet 100 Mg PO DAILY 10/10/19 Reported Protonix (Pantoprazole Sodium) 40 Mg Tablet.dr 40 Mg PO DAILYAC 60 01/29/19 Rx Calcium 500 + Vit D 200 Caplet (Calcium Carbonate/Vitamin D3) 1 Each Tablet 1 Each PO DAILY 05/16/18 Reported Fluoxetine Hcl 20 Mg Capsule 1 Cap PO DAILY 05/16/18 Reported Atorvastatin Calcium 20 Mg Tablet 20 Mg PO HS 10/28/16 Reported Aspir 81 (Aspirin) 81 Mg Tablet.dr 1 Tab PO DAILY 10/28/16 Reported Impression . Acute on chronic diastolic heart failure acute exacerbation of COPD, patient probably had longstanding asthma that was not treated Obesity Secondary pulmonary hypertension Discharge home on 04/26 Follow-up with me in the office in 4 weeks LYNN BISHOP MD Apr 25, 2021 16:42
[2021-04-25 19:00] VITALS: BP 102/33
--- NOTE | 2021-04-25 19:54 | CONS ---
DATE OF CONSULTATION: 04/25/2021 ATTENDING PHYSICIAN: Domo Aguirer MD REASON FOR CONSULTATION: The patient is seen in pulmonary consultation at the request of Dr. Aguirre for increasing shortness of breath, underlying COPD. HISTORY OF PRESENT ILLNESS: The patient presented to the Emergency Room with increasing shortness of breath. She has a history of diastolic heart failure, COPD, hypertension, hyperlipidemia, 1-2 weeks of increasing shortness of breath, lower extremity edema. She had a cough, mostly nonproductive. She also has some chest tightness across the front of her chest and into the shoulder blades. She states that the shortness of breath is worse with lying down and with exertion. The patient was admitted several times last month. She had a previous echocardiogram revealing normal ejection fraction. She now presents with a chest x-ray revealing bilateral pulmonary airspace disease. She had a chest CT angiogram back on 03/23 revealing heterogeneous ground glass opacities, bilateral pulmonary interstitial edema, borderline mediastinal adenopathy. At that time, it was recommended the patient follow up with as an outpatient. She denies fever or chills. She has been vaccinated for COVID-19. No COVID-19 exposures. PAST MEDICAL HISTORY: Chronic respiratory failure, she uses p.r.n. oxygen per nasal cannula, chronic heart failure, diastolic, COPD, type 2 diabetes, hyperlipidemia, hypertension, neuropathy. PAST SURGICAL HISTORY: She has had coronary artery bypass grafting, hernia repair, breast reduction. ALLERGIES: No known drug allergies. REVIEW OF SYSTEMS: As indicated above, otherwise other systems were reviewed and negative. SOCIAL HISTORY: According to the patient, she has never smoked, but she carries a diagnosis of COPD. FAMILY HISTORY: Asthma. CURRENT MEDICATIONS: List was reviewed. She is currently receiving acetaminophen, Norvasc, amoxicillin, Ecotrin, Lipitor, budesonide, Bumex, calcium, Coreg, clopidogrel, Plavix, doxycycline, Jardiance, enoxaparin, Prozac, guaifenesin, hydralazine, insulin, nebulized treatments, isosorbide, losartan, Solu-Medrol. PHYSICAL EXAMINATION: VITAL SIGNS: Stable. O2 saturation currently on 2 liters greater than 92%. LUNGS: Scattered rhonchi with expiratory wheeze. CARDIOVASCULAR: Regular rate and rhythm with S1, S2, no S3. ABDOMEN: Soft, obese. EXTREMITIES: No clubbing or cyanosis. Minimal edema. NEUROLOGIC: The patient was awake, alert, following commands. A detailed neuro exam was not performed. LABORATORY DATA: SARS-CoV-2 testing was negative x 2. Influenza was negative. Electrolytes were noted. Blood sugars were elevated. White count was normal, hemoglobin and hematocrit noted. CPK normal. IMPRESSION: 1. Acute on chronic respiratory distress. 2. Acute exacerbation of chronic obstructive pulmonary disease, the patient probably had longstanding asthma that was not treated, acute on chronic. 3. Acute on chronic diastolic heart failure. 4. Accelerated hypertension. 5. Coronary artery disease with previous coronary artery bypass grafting. 6. Secondary pulmonary hypertension, recent right heart catheterization confirmed that. 7. Obstructive sleep apnea. 8. Status post sick sinus syndrome, pacemaker implantation. 9. Type 2 diabetes. 10. Morbid obesity. PLAN: 1. Recommend continue current diuresis. 2. Oxygen p.r.n. 3. Home CPAP. 4. Follow up in the outpatient department, if her x-ray does not improve with diuresis, we will work up bilateral pulmonary infiltrates as an outpatient. 5. Possible discharge home on 04/26. 6. Follow up with me in the office in 4 weeks. 7. I spoke with Dr. Patel, he plans on starting dialysis. I do appreciate the privilege in sharing in the patient's care. GUILLERMO GAMA: David TID: [id number]
[2021-04-25] MEDS ORDERED: DOXYCYCLINE HYCLATE 100 MG in IV DEXTROSE 5% 100ML 100 ML IV SCH (21:00)
[2021-04-25] MEDS: traZODone 100 MG TABLET. PO SCH (21:04)
[2021-04-25] MEDS: ATORVASTATIN CALCIUM 20 MG TABLET PO SCH (21:04)
[2021-04-25] MEDS: methylPREDNISolone SOD SUCC PF 40 MG/ML VIAL. IV SCH (21:05)
[2021-04-25] MEDS: INSULIN GLARGINE SYRINGE. SQ SCH (21:18)
[2021-04-25 23:00] VITALS: BP 132/40
[2021-04-26] MEDS: oxyCODONE/APAP 10/325 1 TAB TABLET PO PRN ×3 (03:03→14:20)
[2021-04-26] MEDS: IPRATRPIUM/ALBUTEROL 0.5/2.5MG 3 ML NEBU. NEB SCH ×3 (06:19→15:28)
[2021-04-26] MEDS: BUDESONIDE 0.5 MG/2 ML NEBU. NEB SCH (06:20)
[2021-04-26 07:00] VITALS: BP 145/39
[2021-04-26] MEDS: INSULIN LISPRO 300 UNITS/3 ML VIAL. SQ SCH ×2 (07:30→11:36)
[2021-04-26] MEDS: PANTOPRAZOLE 40 MG TABLET.DR. PO SCH (07:56)
[2021-04-26] MEDS: CARVEDILOL 12.5 MG TABLET. PO SCH (07:57)
[2021-04-26] MEDS: LACTOBACILLUS RHAMNOSUS GG 1 CAPSULE. PO SCH (09:00)
--- NOTE | 2021-04-26 09:24 | PDOC ---
PULMONARY PROGRESS NOTES DATE: 04/26/21 TIME: 09:23 Vitals Vital Signs Date Time Temp Pulse Resp B/P (MAP) Pulse Ox O2 Delivery O2 Flow Rate FiO2 04/26/21 08:00 Nasal Cannula 2.0 04/26/21 07:57 55 145/39 04/26/21 07:00 97.5 20 95 97.5 General: Alert, Oriented X4, No acute distress Lungs: Clear, Crackles Cardiovascular: S1, S2 Abdomen: Soft Extremities: No Edema Labs Laboratory Tests Test 04/24/21 11:38 04/24/21 16:59 04/24/21 20:36 04/25/21 07:53 Glucose (Fingerstick) 248 mg/dL (70-99) 150 mg/dL (70-99) 267 mg/dL (70-99) 104 mg/dL (70-99) Test 04/25/21 11:22 04/25/21 16:27 04/25/21 20:00 04/26/21 07:33 Glucose (Fingerstick) 190 mg/dL (70-99) 122 mg/dL (70-99) 199 mg/dL (70-99) 121 mg/dL (70-99) Laboratory Tests Test 04/25/21 11:22 04/25/21 16:27 04/25/21 20:00 04/26/21 07:33 Glucose (Fingerstick) 190 mg/dL (70-99) 122 mg/dL (70-99) 199 mg/dL (70-99) 121 mg/dL (70-99) Medications Active Scripts Medications Dose Route/Sig Max Daily Dose Days Date Category Capsaicin 42.5 Gm Cream..g. 1 Raghu TP TID 04/25/21 Reported Spironolactone 25 Mg Tablet 1 Tab PO DAILY 04/24/21 Reported Carvedilol 25 Mg Tablet 1 Tab PO BID 04/24/21 Reported Lantus Solostar (Insulin Glargine,Hum.rec.anlog) 100 Unit/1 Ml Insuln.pen 8 Unit SQ QHS 03/24/21 Reported Trazodone Hcl 100 Mg Tablet 1 Tab PO QHS 03/24/21 Reported Hydralazine Hcl 50 Mg Tablet 1 Tab PO TID 03/24/21 Reported Jardiance (Empagliflozin) 10 Mg Tablet 1 Tab PO DAILY 03/24/21 Reported Isosorbide Mononitrate Er (Isosorbide Mononitrate) 60 Mg Tab.er.24h 1 Tab PO DAILY 03/24/21 Reported Bumetanide 2 Mg Tablet 2 Mg PO DAILY 03/24/21 Reported Ambien (Zolpidem Tartrate) 10 Mg Tablet 10 Mg PO PRN QHS PRN 03/24/21 Reported Percocet 10-325 Mg Tablet (Oxycodone/Acetaminophen) 1 Each Tablet 1 Tab PO PRN Q4HRS PRN MDD 6 Tablet(s) 5 03/24/21 Reported Amlodipine Besylate 5 Mg Tablet 5 Mg PO DAILY 12/28/20 Reported Humalog (Insulin Lispro) 100 Unit/1 Ml Vial 8 Unit SQ TIDAC 12/28/20 Reported Ventolin Hfa Inhaler (Albuterol Sulfate) 18 Gm Hfa.aer.ad 2 Puff INH [id number] 01/08/20 Reported Potassium Chloride (Potassium Chloride) 20 Meq Tablet.er 20 Meq PO BIDWMEALS 01/08/20 Reported Clopidogrel (Clopidogrel Bisulfate) 75 Mg Tablet 75 Mg PO DAILY 10/10/19 Reported Losartan Potassium 100 Mg Tablet 100 Mg PO DAILY 10/10/19 Reported Protonix (Pantoprazole Sodium) 40 Mg Tablet. 40 Mg PO DAILYAC 60 01/29/19 Rx Calcium 500 + Vit D 200 Caplet (Calcium Carbonate/Vitamin D3) 1 Each Tablet 1 Each PO DAILY 05/16/18 Reported Fluoxetine Hcl 20 Mg Capsule 1 Cap PO DAILY 05/16/18 Reported Atorvastatin Calcium 20 Mg Tablet 20 Mg PO HS 10/28/16 Reported Aspir 81 (Aspirin) 81 Mg Tablet. 1 Tab PO DAILY 10/28/16 Reported Impression . Acute on chronic diastolic heart failure acute exacerbation of COPD, patient probably had longstanding asthma that was not treated Obesity Secondary pulmonary hypertension Discharge home on 04/26 Follow-up with me in the office in 4 weeks LYNN BISHOP MD Apr 26, 2021 09:24
[2021-04-26] MEDS: ENOXAPARIN 40 MG/0.4 ML SYRINGE. SQ SCH (09:28)
[2021-04-26] MEDS: guaiFENesin/CODEINE 100mg/10mg 5 ML LIQUID PO PRN (09:28)
[2021-04-26] MEDS: ASPIRIN ENTERIC COATED 81 MG TABLET.DR. PO SCH (09:29)
[2021-04-26] MEDS: SPIRONOLACTONE 25 MG TABLET PO SCH (09:29)
[2021-04-26] MEDS: methylPREDNISolone SOD SUCC PF 40 MG/ML VIAL. IV SCH (09:29)
[2021-04-26] MEDS: EMPAGLIFLOZIN 10 MG TABLET. PO SCH (09:29)
[2021-04-26] MEDS: BUMETANIDE 1 MG TABLET. PO SCH (09:29)
[2021-04-26] MEDS: FLUoxetine HCL 20 MG CAPSULE PO SCH (09:30)
[2021-04-26] MEDS: CALCIUM CARB/VIT D3 500/200 TABLET. PO SCH (09:30)
[2021-04-26] MEDS: AMOXICILLIN/K CLAV 875/125MG TABLET. PO SCH (09:30)
[2021-04-26] MEDS: CLOPIDOGREL BISULFATE 75 MG TABLET PO SCH (09:30)
[2021-04-26] MEDS: MULTIVITAMIN with MINERAL TABLET. PO SCH (09:30)
[2021-04-26] MEDS: LOSARTAN POTASSIUM 50 MG TABLET. PO SCH (09:30)
[2021-04-26] MEDS: ISOSORBIDE MONONITRATE ER 30 MG TAB.ER.24H PO SCH (09:31)
[2021-04-26] MEDS: DOXYCYCLINE HYCLATE 100 MG TABLET PO SCH (09:33)
[2021-04-26 11:00] VITALS: BP 120/39
--- NOTE | 2021-04-26 11:56 | PDOC ---
[employer] PROGRESS NOTE Date of Service DOS: DATE: 04/26/21 TIME: 11:44 Chief Complaint Chief Complaint Cough Shortness of breath History of the following; Past Medical History: CAD, CHF, COPD, Diabetes-Type II, High Cholesterol, Hypertension, NE, Other Additional Past Medical Histor: O2 @ 2-3 L , chronic pain, NEUROPATHY Past Surgical History: Appendectomy, Cholecystectomy, Coronary Bypass Surgery, Hysterectomy, Knee Replacement, Other Additional Past Surgical Histo: HERNIA REPAIR, CABG X 2 VESSELS 2014; breast reduction; L knee History of Present Illness History of Present Illness 04/26/2021: Patient seen and examined. Chart reviewed. Discussed with RN. Patient resting in bed. Patient in good spirits. 04/24/2021 Patient seen and examined Discussed with RN Chart reviewed She seems to have a persistent cough Vitals/I&O Vitals/I&O: Vital Signs Date Time Temp Pulse Resp B/P (MAP) Pulse Ox O2 Delivery O2 Flow Rate FiO2 04/26/21 11:13 98 Nasal Cannula 2.0 04/26/21 09:31 55 145/39 04/26/21 07:00 97.5 20 97.5 I & O 04/25/21 04/25/21 04/26/21 15:00 23:00 07:00 Intake Total 480 ml 360 ml 240 ml Balance 480 ml 360 ml 240 ml Physical Exam General: Alert, Oriented X3, Cooperative, No acute distress Heart: Regular rate (not on tele), Normal S1, Normal S2, No murmurs Lungs: Clear, Crackles Abdomen: Soft, No tenderness Extremities: No cyanosis, No edema Skin: No breakdown, No significant lesion Labs Labs: Laboratory Tests Test 04/25/21 16:27 04/25/21 20:00 04/26/21 07:33 04/26/21 11:14 Glucose (Fingerstick) 122 mg/dL (70-99) 199 mg/dL (70-99) 121 mg/dL (70-99) 200 mg/dL (70-99) Assessment and Plan Assessmemt and Plan Problems Medical Problems: (1) Chest discomfort Status: Acute ASSESSMENT: Chest pain Cough Shortness of breath Hx of CAD, CHF, COPD, DM2, hypercholesterolemia, HTN PLAN: 1. Appreciate Pulmonology input 2. Continue IV antibiotics 3. Continue IV steroids 4. Continue pain medications 5. Continue home medications 6. DVT prophylaxis 7. Encourage PO intake per diet restrictions 8. Trend labs 9. Full code 10. Discharge to home when cleared by consulting physicians. Comment Review of Relevant I have reviewed the following items nolan (where applicable) has been applied. Medications: Current Medications Medications (Trade) Dose Ordered Sig/Susan Route PRN Reason Start Time Stop Time Status Last Admin Dose Admin Amoxicillin/ Clavulanate Potassium (Augmentin 875/ 125mg) 1 tab BID PO 04/25/21 12:00 04/26/21 09:30 Multivitamins (Thera M Plus) 1 tab DAILY PO 04/25/21 12:00 04/26/21 09:30 Methylprednisolone Sodium Succinate (SOLU-Medrol 40MG VIAL) 40 mg BID IV 04/25/21 21:00 04/26/21 09:29 Justifications for Admission Other Justification COPD exacerbation PERICO BUCHANAN III DO Apr 26, 2021 11:55
[2021-04-26] MEDS ORDERED: METH4TAB2 PO (12:04)
[2021-04-26] MEDS ORDERED: OXYC1TAB22 PO (12:04)
[2021-04-26] MEDS ORDERED: GUAI120L35 PO (12:04)
[2021-04-26] MEDS ORDERED: DOXY100T PO (12:04)
[2021-04-26] MEDS ORDERED: AMOX1TAB11 PO (12:04)
--- NOTE | 2021-04-26 12:07 | SNU/HH DC ---
DISCHARGE WITH HOME HEALTH DISCHARGE INFORMATION: Final Diagnosis: Problems Medical Problems: (1) Chest discomfort Status: Acute Condition on Discharge: Stable CODE STATUS: Code Status: Full HOME HEALTH: Face to Face: I certify this patient is under my care and that I, or a nurse practitioner or physician's patient care nursing assistant working with me, had a face to face encounter that meets the physician face to face encounter requirements with this patient on []. Medical Complications: COPD Care Home For: Assess Cardiopulm Status RN For Eval/Treatment: Yes Physical Therapy For: Evalulation/Treatment Occupational Therapy For: Evaluation/Treatment Home Health Aide For: Self-care [employer] For: Community Resources Pt Meets Homebound Status: Unsteady balance w/ amb, POST DISCHARGE ORDERS: Activity Instructions for Disc: Activity as tolerated Weight Bearing Status after Di: As tolerated Bathing Instructions: No Tub Bath until see Dr. DOW AFTER DISCHARGE: Cardiac Wound/Incision Care: No wound care needed CHECKS AFTER DISCHARGE: Checks after discharge: Check blood press - daily, Check blood sugar, ac/hs, Check your Temp as needed, Weigh Yourself Daily FOLLOW-UP: Follow up with: Dr. Ortega in 4 weeks Follow Up With: Primary care provider in 1-2 weeks TREATMENT/EQUIPMENT ORDERS: Adaptive Equipment Issued: None Discharge Respiratory Equipmen: Oxygen CERTIFICATION STATEMENT: Certification Statement: Certification Statement: Based on the above finding, I certify that this patient is confined to the home and needs intermittent snf care, physical therapy and/or speech therapy, or continues to need occupational therapy.~ This patient is under my care, and I have initiated the establishment of the plan of care.~ This patient will be followed by myself or a community physician who will periodically review the plan of care. Home Meds Active Scripts Methylprednisolone (MEDROL) 4 Mg Tab.ds.pk, 1 PKG PO UD for ., #1 PKG Prov:CASTLE,NIAL K III DO 04/26/21 Guaifenesin/Codeine Phosphate (Codeine-Guaifen 10-100 mg/5 ml) 120 Ml Liquid, 5 ML PO PRN Q6HRS PRN for COUGH for 7 Days, #120 LIQUID Prov:CASTLE,NIAL K III DO 04/26/21 Doxycycline Hyclate (DOXYCYCLINE HYCLATE) 100 Mg Tablet, 100 MG PO BID for . for 7 Days, #14 TAB Prov:CASTLE,NIAL K III DO 04/26/21 Amoxicillin/Potassium Clav (AMOX TR-K CLV 875-125 MG TAB) 1 Each Tablet, 1 TAB PO BID for . for 7 Days, #14 TAB Prov:CORDELL BUCHANANL K III DO 04/26/21 Oxycodone/Apap 10-325 (PERCOCET 10-325 MG TABLET ) 1 Each Tablet, 1 TAB PO PRN Q4HRS PRN for PAIN MDD 6 Tablet(s) for 5 Days, #20 TAB 0 Refills Prov:CORDELL BUCHANANL K III DO 04/26/21 Pantoprazole Sodium (PROTONIX ) 40 Mg Tablet.dr, 40 MG PO DAILYAC for GERD for 60 Days, #60 TAB Prov:CATHIE KNIGHT MD 01/29/19 Reported Medications Capsaicin (CAPSAICIN) 42.5 Gm Cream..g., 1 MYLA TP TID for neuropathy, GM 0 Refills 04/25/21 Spironolactone (SPIRONOLACTONE) 25 Mg Tablet, 1 TAB PO DAILY for diuretic 04/24/21 Carvedilol (CARVEDILOL) 25 Mg Tablet, 1 TAB PO BID for heart 04/24/21 Insulin Glargine,Hum.rec.anlog (LANTUS SOLOSTAR) 100 Unit/1 Ml Insuln.pen, 8 UNIT SQ QHS for diabetes, SYR 03/24/21 Trazodone Hcl (TRAZODONE HCL) 100 Mg Tablet, 1 TAB PO QHS for depression 03/24/21 Hydralazine Hcl (HYDRALAZINE HCL) 50 Mg Tablet, 1 TAB PO TID for blood pressure 03/24/21 Empagliflozin (Jardiance) 10 Mg Tablet, 1 TAB PO DAILY for diabetes 03/24/21 Isosorbide Mononitrate (ISOSORBIDE MONONITRATE ER) 60 Mg Tab.er.24h, 1 TAB PO DAILY for blood pressure 03/24/21 Bumetanide (BUMETANIDE) 2 Mg Tablet, 2 MG PO DAILY for diuretic, TAB 03/24/21 Zolpidem Tartrate (AMBIEN) 10 Mg Tablet, 10 MG PO PRN QHS PRN for sleep 03/24/21 Amlodipine Besylate (AMLODIPINE BESYLATE) 5 Mg Tablet, 5 MG PO DAILY for HTN, TAB 12/28/20 Insulin Lispro (HUMALOG) 100 Unit/1 Ml Vial, 8 UNIT SQ TIDAC for DM, EACH 12/28/20 Albuterol Sulfate (VENTOLIN HFA INHALER) 18 Gm Hfa.aer.ad, 2 PUFF INH Q9OYVECS for FOR ASTHMA, INHALER 0 Refills 01/08/20 Potassium Chloride (POTASSIUM CHLORIDE ) 20 Meq Tablet.er, 20 MEQ PO BIDWMEALS for SUPPLEMENT, TAB.SR 01/08/20 Clopidogrel Bisulfate (CLOPIDOGREL) 75 Mg Tablet, 75 MG PO DAILY for TO PREVENT BLOOD CLOTS, #30 TAB 0 Refills 10/10/19 Losartan Potassium (LOSARTAN POTASSIUM) 100 Mg Tablet, 100 MG PO DAILY for HYPERTENSION, TAB 10/10/19 Calcium Carbonate/Vitamin D3 (CALCIUM 500 + VIT D 200 CAPLET) 1 Each Tablet, 1 EACH PO DAILY for supplement, TAB 05/16/18 Fluoxetine Hcl (FLUOXETINE HCL) 20 Mg Capsule, 1 CAP PO DAILY for anti- depressent, #90 CAP 1 Refill 05/16/18 Atorvastatin Calcium (ATORVASTATIN CALCIUM) 20 Mg Tablet, 20 MG PO HS for FOR CHOLESTEROL, #30 TAB 0 Refills 10/28/16 Aspirin (ASPIR 81) 81 Mg Tablet., 1 TAB PO DAILY, #30 TAB 5 Refills 10/28/16 PERICO BUCHANNA III DO Apr 26, 2021 12:07
--- NOTE | 2021-04-26 12:55 | DS ---
DATE OF DISCHARGE: 04/26/2021 ADMITTING DIAGNOSES: Chest pain, cough, shortness of breath. DISCHARGE DIAGNOSES: Resolving chronic obstructive pulmonary disease exacerbation, resolving hypertensive urgency, anemia, chronic hypoxia, obesity, diabetes, hypertension, bypass surgery. CONSULTS: Pulmonary Medicine. HOSPITAL COURSE: The patient is a pleasant elderly female, who presented with shortness of breath, cough and some chest discomfort. We admitted her, gave her empiric IV antibiotics and steroids, breathing treatments and consulted Pulmonary Medicine. Her workup so far is negative. She is doing much better. Today, I saw and examined her. She is breathing better and wants to go home. We plan to discharge to home. DISPOSITION: Home. ACTIVITY: As tolerated. DIET: Low sodium. DISCHARGE MEDICATIONS: Please see the MRAD. Medrol Dosepak and Augmentin 875 b.i.d., doxycycline 100 p.o. b.i.d., guaifenesin with codeine cough syrup, albuterol, aspirin 81 a day, atorvastatin 20 a day, Bumex 2 a day, calcium, capsaicin, carvedilol 25 b.i.d., Plavix 75 a day, Jardiance 10 daily, fluoxetine 20 a day, hydralazine 50 t.i.d., 8 units with meals of NovoLog, Imdur 60 a day, losartan 100 a day, oxycodone 10 q. 4, Protonix 40 daily, potassium 20 a day, Aldactone 25 a day, trazodone 100 at bedtime and Ambien 10 at bedtime. TOTAL TIME: 32 minutes. AHMET/SONA DR: John TID: [id number]
--- NOTE | 2021-04-26 13:46 | NUR ---
SW following. Discussed with RN, discharge order for home with self care. RN advised no SW needs at this time.
--- NOTE | 2021-04-26 15:51 | NUR ---
Pt left unit at approx 1550 by wheelchair via private vehicle. Pt's IV removed without complication, VSS. Discharge paperwork, including medications and follow-up discussed with pt.
[2021-04-26 15:56] VITALS: BP 146/45
--- NOTE | 2021-04-30 06:51 | EKG ---
[facility] [address] [place] [address] Test Date: 2021-04-29 Test Time: 08:21:51 Pat Name: GRETCHEN BONILLA Department: Room: 562 Gender: F Curtain Drier: GARO : 1955 Requested By: ZULMA SANTOYO Order Number: [id number] Reading MD: Measurements Intervals [place] Rate: 44 P: 0 AL: 254 QRS: -38 QRSD: 138 T: -30 QT: 536 QTc: 458 Interpretive Statements SINUS BRADYCARDIA PROLONGED AL INTERVAL ABNORMAL LEFT AXIS DEVIATION NON SPECIFIC INTRAVENTRICULAR BLOCK QRS(T) CONTOUR ABNORMALITY CONSIDER INFERIOR INFARCT ABNORMAL ECG
== END 2021-04-26 15:57 | disposition home or self-care (01) ==
LOC: ER 18:23 → 5 SOUTH 04-24 00:40
PROVIDERS: ADMIT Internal Medicine; ATTEND Internal Medicine
DX: R07.89 Other chest pain (principal); Z20.822 Contact with and (suspected) exposure to COVID-19; J44.1 Chronic obstructive pulmonary disease with (acute) exacerbation; I16.0 Hypertensive urgency; I13.0 Hypertensive heart and chronic kidney disease with heart failure and stage 1 through stage 4 chronic kidney disease, or unspecified chronic kidney disease; I50.33 Acute on chronic diastolic (congestive) heart failure; N18.9 Chronic kidney disease, unspecified; E11.22 Type 2 diabetes mellitus with diabetic chronic kidney disease; D63.8 Anemia in other chronic diseases classified elsewhere; E66.01 Morbid (severe) obesity due to excess calories; E78.00 Pure hypercholesterolemia, unspecified; E78.5 Hyperlipidemia, unspecified; G47.33 Obstructive sleep apnea (adult) (pediatric); I15.8 Other secondary hypertension; I25.10 Atherosclerotic heart disease of native coronary artery without angina pectoris; I27.29 Other secondary pulmonary hypertension; I45.10 Unspecified right bundle-branch block; I49.5 Sick sinus syndrome; J45.901 Unspecified asthma with (acute) exacerbation; R05.9 Cough, unspecified; J96.11 Chronic respiratory failure with hypoxia; Z95.1 Presence of aortocoronary bypass graft; Z90.49 Acquired absence of other specified parts of digestive tract; Z90.710 Acquired absence of both cervix and uterus; Z91.19 Patient's noncompliance with other medical treatment and regimen; Z95.0 Presence of cardiac pacemaker; Z96.659 Presence of unspecified artificial knee joint; Z79.899 Other long term (current) drug therapy; Z98.890 Other specified postprocedural states
CPT/HCPCS: 36415; 71045; 80053; 82962; 83735; 83880; 84145; 84484; 85025; 87428; 93005; 94640; 94760; 96372; 96374; 96375; 96376; 99284; G0378; J1650; J1815; J1940; J2405; J2920; J7512; J7626; U0003; U0005; G0379

== ENCOUNTER 2021-06-12 16:11 | Inpatient (IN) | payer MEDICARE, MEDICAID ==
[~2021-06-12] VITALS: Ht 162.6 cm; Wt 104.4 kg
[~2021-06-12 16:11] MED LIST changes: +AMOX1TAB11 PO; +CAPS42.514 TP; +DOXY100T PO; -EMPA10TA PO; +EMPA10TA3 PO; +GUAI120L35 PO; +METH4TAB2 PO
[2021-06-12] MEDS ORDERED: methylPREDNISolone SOD SUCC PF 125 MG/2 ML VIAL. IV ONE (16:30)
[2021-06-12] MEDS ORDERED: NITROGLYCERIN OINT 1 GM PACKET. TP ONE (16:30)
[2021-06-12] MEDS ORDERED: IPRATRPIUM/ALBUTEROL 0.5/2.5MG 3 ML NEBU. NEB ONE (16:30)
[2021-06-12 17:38] LABS: BASO % 1 % (0-3); EOS % 1 % (0-3); HEMATOCRIT 34.5 % (36.0-47.0); HEMOGLOBIN 10.8 g/dL (12.0-15.5); LYMPH # 0.8 x10^3/uL (1.0-4.8); LYMPH % 13 % (24-48); MEAN CORPUSCULAR HEMOGLOBIN 29 pg (25-35); MEAN CORPUSCULAR HGB CONC 31 g/dL (31-37); MEAN CORPUSCULAR VOLUME 91 fL (79-100); MONO # 0.6 x10^3/uL (0.0-1.1); MONO % 10 % (0-9); NEUT # 4.8 x10^3/uL (1.8-7.7); NEUT % 76 % (31-73); PLATELET COUNT 195 x10^3/uL (140-400); RED CELL DISTRIBUTION WIDTH 16.3 % (11.5-14.5); WHITE BLOOD COUNT 6.3 x10^3/uL (4.0-11.0)
[2021-06-12 17:39] LABS: INFLUENZA A PATIENT NEGATIVE (NEGATIVE); INFLUENZA B PATIENT NEGATIVE (NEGATIVE)
[2021-06-12 17:48] LABS: PROTHROMBIN TIME PATIENT 13.5 SEC (11.7-14.0)
--- NOTE | 2021-06-12 17:50 | PHYS DOC ---
Past Medical History Past Medical History: CAD, CHF, COPD, Diabetes-Type II, High Cholesterol, Hypertension, [place], Other Additional Past Medical Histor: O2 @ 2-3 L , chronic pain, NEUROPATHY Past Surgical History: Appendectomy, Cholecystectomy, Coronary Bypass Surgery, Hysterectomy, Knee Replacement, Other Additional Past Surgical Histo: HERNIA REPAIR, CABG X 2 VESSELS 2015; breast reduction; L knee Smoking Status: Never Smoker Alcohol Use: None Drug Use: None Adult General Chief Complaint Chief Complaint: SHORTNESS OF BREATH HPI HPI Patient is a 66 year old female who presents with dyspnea. Patient has a history of COPD as well as CHF and believes both factors are contributing to her shortness of breath. She does have some chest discomfort, substernal which radiates to the right side of the neck. There is some pressure component to it. There is no nausea, vomiting, diaphoresis. She has had minimal swelling in the lower extremities, uncertain if there is been any weight gain. Dyspnea is worse when lying supine. Review of Systems Review of Systems Constitutional: Denies fever Eyes: Denies change in visual acuity or eye pain HENT: Denies sore throat Respiratory: Reports shortness of breath Cardiovascular: Reports chest pain GI: Denies abd pain : Denies dysuria Musculoskeletal: Denies back or extremity injury Integument: Denies rash or skin lesions Neurologic: Denies headache, focal weakness or sensory changes All other systems were reviewed and found to be within normal limits, except as documented in this note. Current Medications Current Medications Current Medications Medications (Trade) Dose Ordered Sig/Susan Start Time Stop Time Status Last Admin Dose Admin Albuterol/ Ipratropium (Duoneb) 3 ml 1X ONCE 06/12/21 16:30 06/12/21 16:32 DC 06/12/21 17:15 3 ML Methylprednisolone Sodium Succinate (SOLU-Medrol 125MG VIAL) 125 mg 1X ONCE 06/12/21 16:30 06/12/21 16:32 DC 06/12/21 17:13 125 MG Nitroglycerin (Nitro-Bid Oint) 0.5 inch 1X ONCE 06/12/21 16:30 06/12/21 16:32 DC 06/12/21 17:12 0.5 INCH Allergies Allergies Allergies Coded Allergies Type Severity Reaction Last Updated Verified No Known Drug Allergies 03/23/21 No Physical Exam Physical Exam Constitutional: Well developed, well nourished, in mild respiratory distress, non-toxic appearance. HENT: Normocephalic, atraumatic, bilateral external ears normal, mucosa moist, nose normal. Eyes: EOMI, conjunctiva normal, no discharge. Neck: Normal range of motion, supple, no stridor, no meningeal signs. Cardiovascular: Regular rate and rhythm Lungs & Thorax: Scattered wheezes bilaterally with overall diminished air exchange Abdomen: Soft, no tenderness or obvious masses Skin: Warm, dry, no erythema, no rash. Extremities: No tenderness, no cyanosis, no clubbing, ROM intact, no edema. Neurologic: Alert and oriented, normal motor function, normal sensory function, no focal deficits noted. Psychologic: Affect normal, judgement normal, mood normal. Current Patient Data Vital Signs Vital Signs Date Time Temp Pulse Resp B/P (MAP) Pulse Ox O2 Delivery O2 Flow Rate FiO2 06/12/21 17:20 97 Nasal Cannula 2.0 06/12/21 17:12 62 141/67 06/12/21 17:07 18 06/12/21 16:20 98.9 98.9 Lab Values Laboratory Tests Test 06/12/21 17:03 06/12/21 17:25 Influenza Type A Antigen Negative (NEGATIVE) Influenza Type B Antigen Negative (NEGATIVE) SARS-CoV-2 Antigen (Rapid) Negative (NEGATIVE) White Blood Count 6.3 x10^3/uL (4.0-11.0) Red Blood Count 3.80 x10^6/uL (3.50-5.40) Hemoglobin 10.8 g/dL (12.0-15.5) L Hematocrit 34.5 % (36.0-47.0) L Mean Corpuscular Volume 91 fL (79-100) Mean Corpuscular Hemoglobin 29 pg (25-35) Mean Corpuscular Hemoglobin Concent 31 g/dL (31-37) Red Cell Distribution Width 16.3 % (11.5-14.5) H Platelet Count 195 x10^3/uL (140-400) Neutrophils (%) (Auto) 76 % (31-73) H Lymphocytes (%) (Auto) 13 % (24-48) L Monocytes (%) (Auto) 10 % (0-9) H Eosinophils (%) (Auto) 1 % (0-3) Basophils (%) (Auto) 1 % (0-3) Neutrophils # (Auto) 4.8 x10^3/uL (1.8-7.7) Lymphocytes # (Auto) 0.8 x10^3/uL (1.0-4.8) L Monocytes # (Auto) 0.6 x10^3/uL (0.0-1.1) Eosinophils # (Auto) 0.0 x10^3/uL (0.0-0.7) Basophils # (Auto) 0.0 x10^3/uL (0.0-0.2) Laboratory Tests 06/12/21 17:25 EKG EKG [] Radiology/Procedures Radiology/Procedures [] Course & Med Decision Making Course & Med Decision Making Pertinent Labs and Imaging studies reviewed. (See chart for details) [] This is a 66-year-old female with dyspnea. Work-up is pending. We have ordered a DuoNeb treatment, 125 of Solu-Medrol and 1/2 inch Nitropaste to be applied to the chest. Patient's final disposition will be signed over to the oncoming physician pending results of her studies. Dragon Disclaimer Dragon Disclaimer This electronic medical record was generated, in whole or in part, using a voice recognition dictation system. Departure Departure Referrals: NO PCP (PCP) MIGUEL ANGEL HURST MD Jun 12, 2021 17:50
[2021-06-12 17:52] LABS: D-DIMER 0.35 ug/mlFEU (0.00-0.50)
[2021-06-12 17:53] LABS: CALCIUM 9.5 mg/dL (8.5-10.1); CREATININE 1.3 mg/dL (0.6-1.0); GFR 49.4; POTASSIUM 4.7 mmol/L (3.5-5.1)
[2021-06-12 17:58] LABS: ALBUMIN 4.1 g/dL (3.4-5.0); MAGNESIUM 2.7 mg/dL (1.8-2.4); TOTAL BILIRUBIN 0.3 mg/dL (0.2-1.0); TOTAL PROTEIN 8.2 g/dL (6.4-8.2)
[2021-06-12] MEDS ORDERED: ACETAMINOPHEN 325 MG TABLET. PO ONE (19:00)
--- NOTE | 2021-06-12 19:37 | RAD ---
Exam: Chest one view INDICATION: Dyspnea TECHNIQUE: Frontal view of the chest Comparisons: 04/23/2021 FINDINGS: Sternotomy wires are noted. Pacer with leads terminating the right heart. The cardiomediastinal silhouette and pulmonary vessels are within normal limits. The lung and pleural spaces are clear. IMPRESSION: No acute pulmonary process. Electronically signed by: uKnal Fu MD (06/12/2021 7:34 PM) DEBBIE
[2021-06-12 20:30] VITALS: BP 138/53
--- NOTE | 2021-06-12 21:26 | PDOC1 ---
History and Physical Date of Admission Date of Admission DATE: 06/12/21 TIME: 21:25 Source Source: Chart review, Patient History of Present Illness History of Present Illness Nupur is a 66 year old female well known to hospitalist service, managed to trim her admission frequency considerably during the peaks of COVID pandemic, prensented to the ER for acutely worsening shortness of breath. THe ER did not mention pain much, but it was her primary issue that I maintain her home percocet dose, Q4, not Q6. She has a history of COPD as well as CHF and has been ruled out for ACS many times. She has a slight cough, not productive, she feels congested, and has pain, chest pain to right neck, 09/30 She did not describe the pressure component that she discussed with the ER. She has new orthopnea and could not sleep well last night due to shortness of breath, She has worsening swelling in the lower extremities Past Medical History Cardiovascular: CAD, CHF, HTN, [place], Hyperlipidemia, Other Pulmonary: Bronchitis, COPD CENTRAL NERVOUS SYSTEM: Periperal neuropathy GI: GERD Heme/Onc: No pertinent hx Hepatobiliary: Cholelithiasis Psych: No pertinent hx Musculoskeletal: Osteoarthritis, Weakness Rheumatologic: No pertinent hx Infectious disease: No pertinent hx Renal/: Chronic renal insuff Endocrine: Diabetes Past Surgical History Past Surgical History: Pacemaker, Appendectomy, Cholecystectomy, CABG, Total knee replacement, Hysterectomy Family History Family History: Hypertension Social History Smoke: No ALCOHOL: none Drugs: None Current Medications Current Medications Current Medications Albuterol/ Ipratropium (Duoneb) 3 ml 1X ONCE NEB Last administered on 06/12/21at 17:15; Start 06/12/21 at 16:30; Stop 06/12/21 at 16:32; Status DC Methylprednisolone Sodium Succinate (SOLU-Medrol 125MG VIAL) 125 mg 1X ONCE IV Last administered on 06/12/21at 17:13; Start 06/12/21 at 16:30; Stop 06/12/21 at 16:32; Status DC Nitroglycerin (Nitro-Bid Oint) 0.5 inch 1X ONCE TP Last administered on 06/12/21at 17:12; Start 06/12/21 at 16:30; Stop 06/12/21 at 16:32; Status DC Acetaminophen (Tylenol) 650 mg 1X ONCE PO Last administered on 06/12/21at 18:44; Start 06/12/21 at 19:00; Stop 06/12/21 at 19:01; Status DC Active Scripts Active Medrol (Methylprednisolone) 4 Mg Tab.ds.pk 1 Pkg PO UD Codeine-Guaifen 10-100 mg/5 ml (Guaifenesin/Codeine Phosphate) 120 Ml Liquid 5 Ml PO PRN Q6HRS PRN 7 Days Percocet 10-325 Mg Tablet (Oxycodone/Acetaminophen) 1 Each Tablet 1 Tab PO PRN Q4HRS PRN MDD 6 Tablet(s) 5 Days Protonix (Pantoprazole Sodium) 40 Mg Tablet.dr 40 Mg PO DAILYAC 60 Days Reported Capsaicin 42.5 Gm Cream..g. 1 Raghu TP TID Spironolactone 25 Mg Tablet 1 Tab PO DAILY Carvedilol 25 Mg Tablet 1 Tab PO BID Lantus Solostar (Insulin Glargine,Hum.rec.anlog) 100 Unit/1 Ml Insuln.pen 8 Unit SQ QHS Trazodone Hcl 100 Mg Tablet 1 Tab PO QHS Hydralazine Hcl 50 Mg Tablet 1 Tab PO TID Jardiance (Empaglifozin) 10 Mg Tablet 1 Tab PO DAILY Isosorbide Mononitrate Er (Isosorbide Mononitrate) 60 Mg Tab.er.24h 1 Tab PO DAILY Bumetanide 2 Mg Tablet 2 Mg PO DAILY Ambien (Zolpidem Tartrate) 10 Mg Tablet 10 Mg PO PRN QHS PRN Amlodipine Besylate 5 Mg Tablet 5 Mg PO DAILY Humalog (Insulin Lispro) 100 Unit/1 Ml Vial 8 Unit SQ TIDAC Ventolin Hfa Inhaler (Albuterol Sulfate) 18 Gm Hfa.aer.ad 2 Puff INH [id number] Potassium Chloride (Potassium Chloride) 20 Meq Tablet.er 20 Meq PO BIDWMEALS Clopidogrel (Clopidogrel Bisulfate) 75 Mg Tablet 75 Mg PO DAILY Losartan Potassium 100 Mg Tablet 100 Mg PO DAILY Calcium 500 + Vit D 200 Caplet (Calcium Carbonate/Vitamin D3) 1 Each Tablet 1 Each PO DAILY Fluoxetine Hcl 20 Mg Capsule 1 Cap PO DAILY Atorvastatin Calcium 20 Mg Tablet 20 Mg PO HS Aspir 81 (Aspirin) 81 Mg Tablet.dr 1 Tab PO DAILY Allergies Allergies: Coded Allergies: No Known Drug Allergies (Unverified , 03/23/21) ROS General: YES: Fatigue; No: Chills, Night Sweats, Malaise, Appetite, Other PSYCHOLOGICAL ROS: YES: Irritablity, Sleep disturbances; No: Anxiety, Behavioral Disorder, Concentration difficultie, Decreased libido, Depression, Disorientation, Hallucinations, Hostility, Memory difficulties, Mood Swings, Obsessive thoughts, Other Eyes: No Blurry vision, No Decreased vision, No Double vision, No Dry eyes, No Excessive tearing, No Eye Pain, No Itchy Eyes, No Loss of vision, No Photophobia, No Scotomata, No Uses contacts, No Uses glasses, No Other HEENT: YES: Heacaches Respiratory: YES: Shortness of breath, SOB with excertion; No: Cough, Hemoptysis, Orthopnea, Pleuritic Pain, Sputum Changes, Stridor, Tachypnea, Wheezing, Other Cardiovascular: yes Edema (tr); No Chest Pain, No Palpitations, No Orthopnea, No Paroxysmal Noc. Dyspnea, No Lt Headedness, No Other Gastrointestinal: Yes Nausea Genitourinary: No Dysuria, No Frequency, No Incontinence, No Flank Pain, No , No , No , No , No , No , No Musculoskeletal: Yes Joint Stiffness, Yes Muscular Weakness; No Gait Disturbance, No Joint Pain, No Joint Swelling, No Muscle Pain, No Pain In:, No Swelling In:, No Other Neurological: Yes Headaches; No Behavorial Changes, No Bowel/Bladder ControlChng, No Confusion, No Dizziness, No Gait Disturbance, No Impaired Coord/balance, No Memory Loss, No Numbness/Tingling, No Seizures, No Speech Problems, No Tremors, No Visual Changes, No Weakness, No Other Skin: No Dry Skin, No Eczema, No Hair Changes, No Lumps, No Mole Changes, No Mottling, No Nail Changes, No Pruritus, No Rash, No Skin Lesion Changes, No Other, No Acne Physical Exam General: Alert, Oriented X3, Cooperative, No acute distress HEENT: Atraumatic, EOMI Lungs: Normal air movement Heart: S1S2, no murmurs, murmurs Abdomen: Soft (obese) Rectal Exam: not examined Extremities: No clubbing, No edema Skin: No breakdown, No significant lesion Neuro: Normal speech, Normal tone Psych/Mental Status: Mental status NL, Mood NL Vitals Vitals Vital Signs Date Time Temp Pulse Resp B/P (MAP) Pulse Ox O2 Delivery O2 Flow Rate FiO2 06/12/21 20:30 98.2 54 18 138/53 (81) 98 Nasal Cannula 2.0 98.2 Labs Labs Laboratory Tests Test 06/12/21 17:03 06/12/21 17:25 Influenza Type A Antigen Negative (NEGATIVE) Influenza Type B Antigen Negative (NEGATIVE) SARS-CoV-2 Antigen (Rapid) Negative (NEGATIVE) White Blood Count 6.3 x10^3/uL (4.0-11.0) Red Blood Count 3.80 x10^6/uL (3.50-5.40) Hemoglobin 10.8 g/dL (12.0-15.5) Hematocrit 34.5 % (36.0-47.0) Mean Corpuscular Volume 91 fL (79-100) Mean Corpuscular Hemoglobin 29 pg (25-35) Mean Corpuscular Hemoglobin Concent 31 g/dL (31-37) Red Cell Distribution Width 16.3 % (11.5-14.5) Platelet Count 195 x10^3/uL (140-400) Neutrophils (%) (Auto) 76 % (31-73) Lymphocytes (%) (Auto) 13 % (24-48) Monocytes (%) (Auto) 10 % (0-9) Eosinophils (%) (Auto) 1 % (0-3) Basophils (%) (Auto) 1 % (0-3) Neutrophils # (Auto) 4.8 x10^3/uL (1.8-7.7) Lymphocytes # (Auto) 0.8 x10^3/uL (1.0-4.8) Monocytes # (Auto) 0.6 x10^3/uL (0.0-1.1) Eosinophils # (Auto) 0.0 x10^3/uL (0.0-0.7) Basophils # (Auto) 0.0 x10^3/uL (0.0-0.2) Prothrombin Time 13.5 SEC (11.7-14.0) Prothromb Time International Ratio 1.1 (0.8-1.1) Activated Partial Thromboplast Time 34 SEC (24-38) D-Dimer (Anila) 0.35 ug/mlFEU (0.00-0.50) Sodium Level 140 mmol/L (136-145) Potassium Level 4.7 mmol/L (3.5-5.1) Chloride Level 101 mmol/L (98-107) Carbon Dioxide Level 36 mmol/L (21-32) Anion Gap 3 (6-14) Blood Urea Nitrogen 38 mg/dL (7-20) Creatinine 1.3 mg/dL (0.6-1.0) Estimated GFR (Cockcroft-Gault) 49.4 BUN/Creatinine Ratio 29 (6-20) Glucose Level 79 mg/dL (70-99) Calcium Level 9.5 mg/dL (8.5-10.1) Magnesium Level 2.7 mg/dL (1.8-2.4) Total Bilirubin 0.3 mg/dL (0.2-1.0) Aspartate Amino Transf (AST/SGOT) 10 U/L (15-37) Alanine Aminotransferase (ALT/SGPT) 24 U/L (14-59) Alkaline Phosphatase 80 U/L (46-116) Troponin I High Sensitivity 15 ng/L (4-50) WH-Rpt-T-Type Natriuretic Peptide 2258 pg/mL (0-124) Total Protein 8.2 g/dL (6.4-8.2) Albumin 4.1 g/dL (3.4-5.0) Albumin/Globulin Ratio 1.0 (1.0-1.7) Laboratory Tests Test 06/12/21 17:03 06/12/21 17:25 Influenza Type A Antigen Negative (NEGATIVE) Influenza Type B Antigen Negative (NEGATIVE) SARS-CoV-2 Antigen (Rapid) Negative (NEGATIVE) White Blood Count 6.3 x10^3/uL (4.0-11.0) Red Blood Count 3.80 x10^6/uL (3.50-5.40) Hemoglobin 10.8 g/dL (12.0-15.5) Hematocrit 34.5 % (36.0-47.0) Mean Corpuscular Volume 91 fL (79-100) Mean Corpuscular Hemoglobin 29 pg (25-35) Mean Corpuscular Hemoglobin Concent 31 g/dL (31-37) Red Cell Distribution Width 16.3 % (11.5-14.5) Platelet Count 195 x10^3/uL (140-400) Neutrophils (%) (Auto) 76 % (31-73) Lymphocytes (%) (Auto) 13 % (24-48) Monocytes (%) (Auto) 10 % (0-9) Eosinophils (%) (Auto) 1 % (0-3) Basophils (%) (Auto) 1 % (0-3) Neutrophils # (Auto) 4.8 x10^3/uL (1.8-7.7) Lymphocytes # (Auto) 0.8 x10^3/uL (1.0-4.8) Monocytes # (Auto) 0.6 x10^3/uL (0.0-1.1) Eosinophils # (Auto) 0.0 x10^3/uL (0.0-0.7) Basophils # (Auto) 0.0 x10^3/uL (0.0-0.2) Prothrombin Time 13.5 SEC (11.7-14.0) Prothromb Time International Ratio 1.1 (0.8-1.1) Activated Partial Thromboplast Time 34 SEC (24-38) D-Dimer (Anila) 0.35 ug/mlFEU (0.00-0.50) Sodium Level 140 mmol/L (136-145) Potassium Level 4.7 mmol/L (3.5-5.1) Chloride Level 101 mmol/L (98-107) Carbon Dioxide Level 36 mmol/L (21-32) Anion Gap 3 (6-14) Blood Urea Nitrogen 38 mg/dL (7-20) Creatinine 1.3 mg/dL (0.6-1.0) Estimated GFR (Cockcroft-Gault) 49.4 BUN/Creatinine Ratio 29 (6-20) Glucose Level 79 mg/dL (70-99) Calcium Level 9.5 mg/dL (8.5-10.1) Magnesium Level 2.7 mg/dL (1.8-2.4) Total Bilirubin 0.3 mg/dL (0.2-1.0) Aspartate Amino Transf (AST/SGOT) 10 U/L (15-37) Alanine Aminotransferase (ALT/SGPT) 24 U/L (14-59) Alkaline Phosphatase 80 U/L (46-116) Troponin I High Sensitivity 15 ng/L (4-50) TK-Jwa-O-Type Natriuretic Peptide 2258 pg/mL (0-124) Total Protein 8.2 g/dL (6.4-8.2) Albumin 4.1 g/dL (3.4-5.0) Albumin/Globulin Ratio 1.0 (1.0-1.7) VTE Prophylaxis Ordered VTE Prophylaxis Devices: Yes VTE Pharmacological Prophylaxi: Yes Assessment/Plan Assessment/Plan acute on chronic chest pain, angina probably stable at this point, cont home meds, she is concerned about her her home percocet being Q4 try lidoderm patch to the neck Acute on chronic systolic CHF, lasix IV, cont, may transition to home bumex Obese, BMI 40 weakness and dbeility CAD opioid tolerance of meds for chronic pain disorder Justifications for Admission Other Justification COPD exacerbation LÓPEZ BARRIOS MD Jun 12, 2021 21:26
[2021-06-12] MEDS ORDERED: LIDOCAINE (700MG/PATCH) PATCH. TD ONE (21:30)
[2021-06-12] MEDS: oxyCODONE/APAP 10/325 1 TAB TABLET PO PRN (22:06)
[2021-06-12] MEDS: ZOLPIDEM 5 MG TABLET. PO PRN (22:06)
[2021-06-12] MEDS ORDERED: ALBUTEROL SULFATE 2.5 MG/3 ML NEBU. NEB PRN (22:15)
--- NOTE | 2021-06-12 22:30 | NUR ---
Admit from ER via WC to [facility] room 665. A/O x 4 on arrival. Reports SOA at times and right shoulder pain. Orientated to room and call light. Instructed to call for standby assist when up in room. Verbalized understanding. Reviewed home medication list and POC. Dr Macias at bedside to write orders. Resting in bed watching TV. Call light at hand.
[2021-06-12 23:00] VITALS: BP 120/40
[2021-06-13] MEDS: oxyCODONE/APAP 10/325 1 TAB TABLET PO PRN ×4 (02:09→20:21)
[2021-06-13 03:00] VITALS: BP 133/38
--- NOTE | 2021-06-13 06:02 | EKG ---
[facility] [address] [place] [address] Test Date: 2021-06-12 Test Time: 16:26:47 Pat Name: GERTCHEN BONILLA Department: Room: [facility] Gender: F Taker Off: : 1955 Requested By: MIGUEL ANGEL HURST Order Number: [id number] Reading MD: Salvador Maldonado MD Measurements Intervals [place] Rate: 55 P: -42 AK: 126 QRS: -144 QRSD: 146 T: 52 QT: 446 QTc: 429 Interpretive Statements A paced Probable BiV pacing Electronically Signed On 06-15-2021 17:57:11 CDT by Salvador Maldonado MD
[2021-06-13 07:00] VITALS: BP 132/49
--- NOTE | 2021-06-13 07:49 | PDOC ---
[employer] PROGRESS NOTE Date of Service DOS: DATE: 06/13/21 TIME: 07:48 Chief Complaint Chief Complaint acute on chronic chest pain, angina probably stable at this point, cont home meds, she is concerned about her her home percocet being Q4 try lidoderm patch to the neck Acute on chronic systolic CHF, lasix IV, cont, may transition to home bumex Obese, BMI 40 weakness and dbeility CAD opioid tolerance of meds for chronic pain disorder History of Present Illness History of Present Illness Nupur is a 66 year old female well known to hospitalist service, managed to trim her admission frequency considerably during the peaks of COVID pandemic, prensented to the ER for acutely worsening shortness of breath. THe ER did not mention pain much, but it was her primary issue that I maintain her home percocet dose, Q4, not Q6. She has a history of COPD as well as CHF and has been ruled out for ACS many times. She has a slight cough, not productive, she feels congested, and has pain, chest pain to right neck, 09/30 She did not describe the pressure component that she discussed with the ER. She has new orthopnea and could not sleep well last night due to shortness of breath, She has worsening swelling in the lower extremities and her abdomen. Given IV Lasix. 06/13: Planing of bilateral ankle swelling and pain asking for Voltaren. Lidoderm helped her back pain. Chest discomfort improved shortness of breath minimally improved she is feeling very weak and unsteady awaiting therapy evaluation today. Vitals/I&O Vitals/I&O: Vital Signs Date Time Temp Pulse Resp B/P (MAP) Pulse Ox O2 Delivery O2 Flow Rate FiO2 06/13/21 03:00 98.4 54 18 133/38 (69) 97 Nasal Cannula 2.0 98.4 I & O 06/12/21 06/12/21 06/13/21 15:00 23:00 07:00 Intake Total 180 ml 200 ml Output Total 200 ml 500 ml Balance -20 ml -300 ml Physical Exam General: Alert, Oriented X3, Cooperative, No acute distress Lungs: Clear, Crackles Abdomen: Soft (obese) Extremities: No clubbing, No edema Skin: No breakdown, No significant lesion Labs Labs: Laboratory Tests Test 06/12/21 17:03 06/12/21 17:25 Influenza Type A Antigen Negative (NEGATIVE) Influenza Type B Antigen Negative (NEGATIVE) SARS-CoV-2 Antigen (Rapid) Negative (NEGATIVE) White Blood Count 6.3 x10^3/uL (4.0-11.0) Red Blood Count 3.80 x10^6/uL (3.50-5.40) Hemoglobin 10.8 g/dL (12.0-15.5) Hematocrit 34.5 % (36.0-47.0) Mean Corpuscular Volume 91 fL (79-100) Mean Corpuscular Hemoglobin 29 pg (25-35) Mean Corpuscular Hemoglobin Concent 31 g/dL (31-37) Red Cell Distribution Width 16.3 % (11.5-14.5) Platelet Count 195 x10^3/uL (140-400) Neutrophils (%) (Auto) 76 % (31-73) Lymphocytes (%) (Auto) 13 % (24-48) Monocytes (%) (Auto) 10 % (0-9) Eosinophils (%) (Auto) 1 % (0-3) Basophils (%) (Auto) 1 % (0-3) Neutrophils # (Auto) 4.8 x10^3/uL (1.8-7.7) Lymphocytes # (Auto) 0.8 x10^3/uL (1.0-4.8) Monocytes # (Auto) 0.6 x10^3/uL (0.0-1.1) Eosinophils # (Auto) 0.0 x10^3/uL (0.0-0.7) Basophils # (Auto) 0.0 x10^3/uL (0.0-0.2) Prothrombin Time 13.5 SEC (11.7-14.0) Prothromb Time International Ratio 1.1 (0.8-1.1) Activated Partial Thromboplast Time 34 SEC (24-38) D-Dimer (Anila) 0.35 ug/mlFEU (0.00-0.50) Sodium Level 140 mmol/L (136-145) Potassium Level 4.7 mmol/L (3.5-5.1) Chloride Level 101 mmol/L (98-107) Carbon Dioxide Level 36 mmol/L (21-32) Anion Gap 3 (6-14) Blood Urea Nitrogen 38 mg/dL (7-20) Creatinine 1.3 mg/dL (0.6-1.0) Estimated GFR (Cockcroft-Gault) 49.4 BUN/Creatinine Ratio 29 (6-20) Glucose Level 79 mg/dL (70-99) Calcium Level 9.5 mg/dL (8.5-10.1) Magnesium Level 2.7 mg/dL (1.8-2.4) Total Bilirubin 0.3 mg/dL (0.2-1.0) Aspartate Amino Transf (AST/SGOT) 10 U/L (15-37) Alanine Aminotransferase (ALT/SGPT) 24 U/L (14-59) Alkaline Phosphatase 80 U/L (46-116) Troponin I High Sensitivity 15 ng/L (4-50) CK-Dzu-J-Type Natriuretic Peptide 2258 pg/mL (0-124) Total Protein 8.2 g/dL (6.4-8.2) Albumin 4.1 g/dL (3.4-5.0) Albumin/Globulin Ratio 1.0 (1.0-1.7) Comment Review of Relevant I have reviewed the following items nolan (where applicable) has been applied. Medications: Current Medications Medications (Trade) Dose Ordered Sig/Susan Route PRN Reason Start Time Stop Time Status Last Admin Dose Admin Albuterol/ Ipratropium (Duoneb) 3 ml 1X ONCE NEB 06/12/21 16:30 06/12/21 16:32 DC 06/12/21 17:15 Methylprednisolone Sodium Succinate (SOLU-Medrol 125MG VIAL) 125 mg 1X ONCE IV 06/12/21 16:30 06/12/21 16:32 DC 06/12/21 17:13 Nitroglycerin (Nitro-Bid Oint) 0.5 inch 1X ONCE TP 06/12/21 16:30 06/12/21 16:32 DC 06/12/21 17:12 Acetaminophen (Tylenol) 650 mg 1X ONCE PO 06/12/21 19:00 06/12/21 19:01 DC 06/12/21 18:44 Lidocaine (Lidoderm) 1 patch 1X ONCE TD 06/12/21 21:30 06/12/21 21:31 DC 06/12/21 22:05 Oxycodone/ Acetaminophen (Percocet 10/325) 1 tab PRN Q4HRS PRN PO PAIN 06/12/21 21:30 06/13/21 02:09 Zolpidem Tartrate (Ambien) 5 mg PRN QHS PRN PO INSOMNIA 06/12/21 21:45 06/12/21 22:06 Justifications for Admission Other Justification COPD exacerbation VENKAT ALEJANDRO MD Jun 13, 2021 07:49
[2021-06-13] MEDS: FLUoxetine HCL 20 MG CAPSULE PO SCH (08:35)
[2021-06-13] MEDS: EMPAGLIFLOZIN 10 MG TABLET. PO SCH (08:35)
[2021-06-13] MEDS: ASPIRIN ENTERIC COATED 81 MG TABLET.DR. PO SCH (08:36)
[2021-06-13] MEDS: CLOPIDOGREL BISULFATE 75 MG TABLET PO SCH (08:36)
[2021-06-13] MEDS: BUMETANIDE 1 MG TABLET. PO SCH (08:36)
[2021-06-13] MEDS: CALCIUM CARB/VIT D3 500/200 TABLET. PO SCH (08:36)
[2021-06-13] MEDS: PANTOPRAZOLE 40 MG TABLET.DR. PO SCH (08:36)
[2021-06-13] MEDS: POTASSIUM CHLORIDE 20 MEQ TABLET.ER. PO SCH ×2 (08:36→17:04)
[2021-06-13] MEDS: SPIRONOLACTONE 25 MG TABLET PO SCH (08:37)
[2021-06-13] MEDS: CARVEDILOL 12.5 MG TABLET. PO SCH ×2 (08:40→17:04)
[2021-06-13] MEDS: LOSARTAN POTASSIUM 50 MG TABLET. PO SCH (08:41)
[2021-06-13] MEDS: ISOSORBIDE MONONITRATE ER 30 MG TAB.ER.24H PO SCH (08:41)
[2021-06-13] MEDS: INSULIN LISPRO 300 UNITS/3 ML VIAL. SQ SCH ×5 (08:45→17:00)
[2021-06-13 11:00] VITALS: BP 108/47
[2021-06-13] MEDS ORDERED: DEXTROSE 50% 25 GM / 50ML DISP.SYRIN. IV PRN (11:30)
[2021-06-13] MEDS ORDERED: IV DEXTROSE 5% 250 ML BAG. IV PRN (11:30)
[2021-06-13] MEDS: DICLOFENAC SODIUM 1% TOPICAL GEL 100GM TUBE. TP SCH ×2 (12:27→20:21)
[2021-06-13] MEDS: LIDOCAINE (700MG/PATCH) PATCH. TD SCH (12:27)
[2021-06-13 15:00] VITALS: BP 103/53
--- NOTE | 2021-06-13 15:11 | NUR ---
SS following for discharge planning. SS reviewed pt chart and discussed with pt RN. Pt is from home and is currently requiring oxygen at two liters nasal canula. Pt has home oxygen. PT/OT ordered. SS will continue to follow for discharge planning.
[2021-06-13 19:00] VITALS: BP 128/57
[2021-06-13] MEDS: ATORVASTATIN CALCIUM 20 MG TABLET PO SCH (20:20)
[2021-06-13] MEDS: PATCH REMOVAL. MC SCH (20:22)
[2021-06-13] MEDS: ZOLPIDEM 5 MG TABLET. PO PRN (21:17)
[2021-06-13] MEDS: INSULIN GLARGINE SYRINGE. SQ SCH (21:19)
[2021-06-13 22:25] VITALS: BP 114/58
[2021-06-14 02:34] VITALS: BP 124/61
[2021-06-14] MEDS: oxyCODONE/APAP 10/325 1 TAB TABLET PO PRN ×4 (03:54→20:46)
[2021-06-14] MEDS: PANTOPRAZOLE 40 MG TABLET.DR. PO SCH (05:30)
[2021-06-14 07:00] VITALS: BP 131/70
[2021-06-14] MEDS: INSULIN LISPRO 300 UNITS/3 ML VIAL. SQ SCH ×6 (07:51→17:00)
[2021-06-14] MEDS: LIDOCAINE (700MG/PATCH) PATCH. TD SCH (08:31)
[2021-06-14] MEDS: CALCIUM CARB/VIT D3 500/200 TABLET. PO SCH (08:32)
[2021-06-14] MEDS: DICLOFENAC SODIUM 1% TOPICAL GEL 100GM TUBE. TP SCH ×2 (08:32→20:44)
[2021-06-14] MEDS: POTASSIUM CHLORIDE 20 MEQ TABLET.ER. PO SCH ×2 (08:33→17:33)
[2021-06-14] MEDS: ISOSORBIDE MONONITRATE ER 30 MG TAB.ER.24H PO SCH (08:34)
[2021-06-14] MEDS: BUMETANIDE 1 MG TABLET. PO SCH (08:35)
[2021-06-14] MEDS: SPIRONOLACTONE 25 MG TABLET PO SCH (08:35)
[2021-06-14] MEDS: CLOPIDOGREL BISULFATE 75 MG TABLET PO SCH (08:35)
[2021-06-14] MEDS: ASPIRIN ENTERIC COATED 81 MG TABLET.DR. PO SCH (08:38)
[2021-06-14] MEDS: CARVEDILOL 12.5 MG TABLET. PO SCH ×2 (08:38→17:34)
[2021-06-14] MEDS: EMPAGLIFLOZIN 10 MG TABLET. PO SCH (09:00)
[2021-06-14] MEDS: LOSARTAN POTASSIUM 50 MG TABLET. PO SCH (09:00)
[2021-06-14] MEDS: FLUoxetine HCL 20 MG CAPSULE PO SCH (09:00)
[2021-06-14 11:00] VITALS: BP 133/45
--- NOTE | 2021-06-14 11:45 | PDOC ---
[facility] [facility] PROGRESS NOTE Date of Service DOS: DATE: 06/14/21 TIME: 11:40 Chief Complaint Chief Complaint Shortness of breath - diuresing for CHF exacerbation, also with some wheezing and MCCLOUD likely mild COPD as well acute on chronic chest pain, angina probably stable at this point, cont home meds, she is concerned about her her home percocet being Q4 try lidoderm patch to the neck Acute on chronic systolic CHF, lasix IV, cont, may transition to home bumex Obese, BMI 40 weakness and debility CAD opioid tolerance of meds for chronic pain disorder History of Present Illness History of Present Illness Nupur is a 66 year old female well known to hospitalist service, managed to trim her admission frequency considerably during the peaks of COVID pandemic, presented to the ER for acutely worsening shortness of breath. THe ER did not mention pain much, but it was her primary issue that I maintain her home percocet dose, Q4, not Q6. She has a history of COPD as well as CHF and has been ruled out for ACS many times. She has a slight cough, not productive, she feels congested, and has pain, chest pain to right neck, 09/30 She did not describe the pressure component that she discussed with the ER. She has new orthopnea and could not sleep well last night due to shortness of breath, She has worsening swelling in the lower extremities and her abdomen. Given IV Lasix. 06/13: Planing of bilateral ankle swelling and pain asking for Voltaren. Lidoderm helped her back pain. Chest discomfort improved shortness of breath minimally improved she is feeling very weak and unsteady awaiting therapy . 06/14: Chest pain improved. Still very dyspneic on exertion with some wheezes and unable to get a complete breath today will order Pulmicort nebulizers. Vitals/I&O Vitals/I&O: Vital Signs Date Time Temp Pulse Resp B/P (MAP) Pulse Ox O2 Delivery O2 Flow Rate FiO2 06/14/21 11:00 97.5 54 18 133/45 (74) 97 Room Air 97.5 06/14/21 10:19 2.0 I & O 06/13/21 06/13/21 06/14/21 15:00 23:00 07:00 Intake Total 700 ml 180 ml Output Total 200 ml 2400 ml Balance 700 ml -20 ml -2400 ml Physical Exam General: Alert, Oriented X3, Cooperative, No acute distress Lungs: Clear, Crackles Abdomen: Soft (obese) Extremities: No clubbing, No edema Skin: No breakdown, No significant lesion Labs Labs: Laboratory Tests Test 06/13/21 16:27 06/13/21 20:16 06/14/21 07:28 Glucose (Fingerstick) 86 mg/dL (70-99) 163 mg/dL (70-99) 145 mg/dL (70-99) Comment Review of Relevant I have reviewed the following items nolan (where applicable) has been applied. Medications: Current Medications Medications (Trade) Dose Ordered Sig/Susan Route PRN Reason Start Time Stop Time Status Last Admin Dose Admin Atorvastatin Calcium (Lipitor) 20 mg HS PO 06/13/21 21:00 06/13/21 20:20 Insulin Glargine (Lantus Syringe) 8 unit QHS SQ 06/13/21 21:00 06/13/21 21:19 Insulin Human Lispro (HumaLOG) 0-9 UNITS TIDWMEALS SQ 06/13/21 12:00 06/13/21 12:28 Miscellaneous (Lidoderm Patch Removal) 1 ea QHS MC 06/13/21 21:00 06/13/21 20:22 Justifications for Admission Other Justification COPD exacerbation VENKAT ALEJANDRO MD Jun 14, 2021 11:45
--- NOTE | 2021-06-14 14:06 | NUR ---
SS following up with discharge planning. SS reviewed pt chart and discussed with pt RN. Pt is currently requiring oxygen at two liters nasal canula. COVID19 negative. Pt has home oxygen. PT/OT ordered. PT recommended home with assistance. SS will continue to follow for discharge planning.
[2021-06-14 15:00] VITALS: BP 137/42
[2021-06-14] MEDS: IPRATRPIUM/ALBUTEROL 0.5/2.5MG 3 ML NEBU. NEB SCH ×2 (16:00→19:48)
[2021-06-14 19:33] VITALS: BP 134/78
[2021-06-14] MEDS: BUDESONIDE 0.5 MG/2 ML NEBU. NEB SCH (19:48)
[2021-06-14] MEDS: ATORVASTATIN CALCIUM 20 MG TABLET PO SCH (20:40)
[2021-06-14] MEDS: INSULIN GLARGINE SYRINGE. SQ SCH (20:43)
[2021-06-14] MEDS: PATCH REMOVAL. MC SCH (20:51)
[2021-06-14] MEDS: ZOLPIDEM 5 MG TABLET. PO PRN (22:15)
[2021-06-14 22:16] VITALS: BP 131/52
[2021-06-15 02:51] VITALS: BP 140/64
[2021-06-15] MEDS: PANTOPRAZOLE 40 MG TABLET.DR. PO SCH (05:49)
[2021-06-15] MEDS: oxyCODONE/APAP 10/325 1 TAB TABLET PO PRN ×3 (05:49→17:14)
[2021-06-15 07:00] VITALS: BP 134/71
[2021-06-15] MEDS: BUDESONIDE 0.5 MG/2 ML NEBU. NEB SCH (07:49)
[2021-06-15] MEDS: IPRATRPIUM/ALBUTEROL 0.5/2.5MG 3 ML NEBU. NEB SCH ×3 (07:49→16:00)
[2021-06-15] MEDS: INSULIN LISPRO 300 UNITS/3 ML VIAL. SQ SCH ×4 (08:00→12:00)
[2021-06-15] MEDS: LIDOCAINE (700MG/PATCH) PATCH. TD SCH (08:44)
[2021-06-15] MEDS: BUMETANIDE 1 MG TABLET. PO SCH (08:44)
[2021-06-15] MEDS: LOSARTAN POTASSIUM 50 MG TABLET. PO SCH (08:45)
[2021-06-15] MEDS: FLUoxetine HCL 20 MG CAPSULE PO SCH (08:45)
[2021-06-15] MEDS: CLOPIDOGREL BISULFATE 75 MG TABLET PO SCH (08:45)
[2021-06-15] MEDS: ASPIRIN ENTERIC COATED 81 MG TABLET.DR. PO SCH (08:45)
[2021-06-15] MEDS: CALCIUM CARB/VIT D3 500/200 TABLET. PO SCH (08:45)
[2021-06-15] MEDS: CARVEDILOL 12.5 MG TABLET. PO SCH ×2 (08:46→17:21)
[2021-06-15] MEDS: POTASSIUM CHLORIDE 20 MEQ TABLET.ER. PO SCH ×2 (08:46→17:21)
[2021-06-15] MEDS: ISOSORBIDE MONONITRATE ER 30 MG TAB.ER.24H PO SCH (08:47)
[2021-06-15] MEDS: SPIRONOLACTONE 25 MG TABLET PO SCH (08:47)
[2021-06-15] MEDS: EMPAGLIFLOZIN 10 MG TABLET. PO SCH (08:47)
[2021-06-15] MEDS: DICLOFENAC SODIUM 1% TOPICAL GEL 100GM TUBE. TP SCH (08:48)
[2021-06-15 11:00] VITALS: BP 126/67
--- NOTE | 2021-06-15 12:42 | PDOC ---
[employer] [facility] PROGRESS NOTE Date of Service DOS: DATE: 06/15/21 TIME: 12:41 Chief Complaint Chief Complaint Shortness of breath - diuresing for CHF exacerbation, also with some wheezing and MCCLOUD likely mild COPD as well acute on chronic chest pain, angina probably stable at this point, cont home meds, she is concerned about her her home percocet being Q4 try lidoderm patch to the neck Acute on chronic systolic CHF, lasix IV, cont, may transition to home bumex Obese, BMI 40 weakness and debility CAD opioid tolerance of meds for chronic pain disorder History of Present Illness History of Present Illness Nupur is a 66 year old female well known to hospitalist service, managed to trim her admission frequency considerably during the peaks of COVID pandemic, presented to the ER for acutely worsening shortness of breath. THe ER did not mention pain much, but it was her primary issue that I maintain her home percocet dose, Q4, not Q6. She has a history of COPD as well as CHF and has been ruled out for ACS many times. She has a slight cough, not productive, she feels congested, and has pain, chest pain to right neck, 09/30 She did not describe the pressure component that she discussed with the ER. She has new orthopnea and could not sleep well last night due to shortness of breath, She has worsening swelling in the lower extremities and her abdomen. Given IV Lasix. 06/13: Planing of bilateral ankle swelling and pain asking for Voltaren. Lidoderm helped her back pain. Chest discomfort improved shortness of breath minimally improved she is feeling very weak and unsteady awaiting therapy . 06/14: Chest pain improved. Still very dyspneic on exertion with some wheezes and unable to get a complete breath today will order Pulmicort nebulizers. 06/15: Breathing improved with aggressive nebulizers. Still on her home O2. No chest pain today. Discussed options of home health and she is not currently interested. Vitals/I&O Vitals/I&O: Vital Signs Date Time Temp Pulse Resp B/P (MAP) Pulse Ox O2 Delivery O2 Flow Rate FiO2 06/15/21 11:45 97 Nasal Cannula 2.0 06/15/21 08:47 54 134/71 06/15/21 07:00 97.7 20 97.7 I & O 3/06/14/21 06/15/21 15:00 23:00 07:00 Intake Total 1000 ml 670 ml 300 ml Balance 1000 ml 670 ml 300 ml Physical Exam General: Alert, Oriented X3, Cooperative, No acute distress Lungs: Clear, Crackles Abdomen: Soft (obese) Extremities: No clubbing, No edema Skin: No breakdown, No significant lesion Labs Labs: Laboratory Tests Test 06/14/21 16:48 06/14/21 20:34 06/15/21 07:08 06/15/21 11:31 Glucose (Fingerstick) 108 mg/dL (70-99) 136 mg/dL (70-99) 123 mg/dL (70-99) 84 mg/dL (70-99) Comment Review of Relevant I have reviewed the following items nolan (where applicable) has been applied. Justifications for Admission Other Justification COPD exacerbation VENKAT ALEJANDRO MD Jun 15, 2021 12:42
--- NOTE | 2021-06-15 12:46 | SNU/HH DC ---
DISCHARGE WITH HOME HEALTH DISCHARGE INFORMATION: Discharge Date: Jun 15, 2021 Final Diagnosis: Acute CHF, acute COPD Chest pain, shortness of breath Condition on Discharge: Stable CODE STATUS: Code Status: Full HOME HEALTH: Face to Face: I certify this patient is under my care and that I, or a nurse practitioner or physician's podiatry assistant working with me, had a face to face encounter that meets the physician face to face encounter requirements with this patient on 06/15/2021. Medical Complications: CHF, COPD, DM, HTN Halfway For: Assess/Skilled Observatio, Medication Management RN For Eval/Treatment: Yes Physical Therapy For: Evalulation/Treatment Occupational Therapy For: Evaluation/Treatment Pt Meets Homebound Status: Extreme weakness w/ amb. POST DISCHARGE ORDERS: Activity Instructions for Disc: Activity as tolerated Weight Bearing Status after Di: As tolerated Bathing Instructions: No Tub Bath until see DIET AFTER DISCHARGE: Cardiac Wound/Incision Care: No wound care needed CHECKS AFTER DISCHARGE: Checks after discharge: Check blood press - daily, Check blood sugar, ac/hs, Check your Temp as needed, Weigh Yourself Daily TREATMENT/EQUIPMENT ORDERS: Adaptive Equipment Issued: None Discharge Respiratory Equipmen: Oxygen CERTIFICATION STATEMENT: Certification Statement: Certification Statement: Based on the above finding, I certify that this patient is confined to the home and needs intermittent senior living care, physical therapy and/or speech therapy, or continues to need occupational therapy.~ This patient is under my care, and I have initiated the establishment of the plan of care.~ This patient will be followed by myself or a community physician who will periodically review the plan of care. Home Meds Active Scripts Oxycodone/Apap 10-325 (PERCOCET 10-325 MG TABLET ) 1 Each Tablet, 1 TAB PO PRN Q4HRS PRN for PAIN MDD 6 Tablet(s) for 5 Days, #20 TAB 0 Refills Prov:CASTLE,NIAL K III DO 04/26/21 Pantoprazole Sodium (PROTONIX ) 40 Mg Tablet., 40 MG PO DAILYAC for GERD for 60 Days, #60 TAB Prov:CATHIE KNIGHT MD 01/29/19 Reported Medications Capsaicin (CAPSAICIN) 42.5 Gm Cream..g., 1 MYLA TP TID for neuropathy, GM 0 Refills 04/25/21 Spironolactone (SPIRONOLACTONE) 25 Mg Tablet, 1 TAB PO DAILY for diuretic 04/24/21 Carvedilol (CARVEDILOL) 25 Mg Tablet, 1 TAB PO BID for heart 04/24/21 Insulin Glargine,Hum.rec.anlog (LANTUS SOLOSTAR) 100 Unit/1 Ml Insuln.pen, 8 UNIT SQ QHS for diabetes, SYR 03/24/21 Hydralazine Hcl (HYDRALAZINE HCL) 50 Mg Tablet, 1 TAB PO TID for blood pressure 03/24/21 Empagliflozin (Jardiance) 10 Mg Tablet, 1 TAB PO DAILY for diabetes 03/24/21 Isosorbide Mononitrate (ISOSORBIDE MONONITRATE ER) 60 Mg Tab.er.24h, 1 TAB PO DAILY for blood pressure 03/24/21 Bumetanide (BUMETANIDE) 2 Mg Tablet, 2 MG PO DAILY for diuretic, TAB 03/24/21 Zolpidem Tartrate (AMBIEN) 10 Mg Tablet, 10 MG PO PRN QHS PRN for sleep 03/24/21 Amlodipine Besylate (AMLODIPINE BESYLATE) 5 Mg Tablet, 5 MG PO DAILY for HTN, TAB 12/28/20 Insulin Lispro (HUMALOG) 100 Unit/1 Ml Vial, 8 UNIT SQ TIDAC for DM, EACH 12/28/20 Albuterol Sulfate (VENTOLIN HFA INHALER) 18 Gm Hfa.aer.ad, 2 PUFF INH [id number] for FOR ASTHMA, INHALER 0 Refills 01/08/20 Potassium Chloride (POTASSIUM CHLORIDE ) 20 Meq Tablet.er, 20 MEQ PO BIDWMEALS for SUPPLEMENT, TAB.SR 01/08/20 Clopidogrel Bisulfate (CLOPIDOGREL) 75 Mg Tablet, 75 MG PO DAILY for TO PREVENT BLOOD CLOTS, #30 TAB 0 Refills 10/10/19 Losartan Potassium (LOSARTAN POTASSIUM) 100 Mg Tablet, 100 MG PO DAILY for HYPERTENSION, TAB 10/10/19 Calcium Carbonate/Vitamin D3 (CALCIUM 500 + VIT D 200 CAPLET) 1 Each Tablet, 1 EACH PO DAILY for supplement, TAB 05/16/18 Fluoxetine Hcl (FLUOXETINE HCL) 20 Mg Capsule, 1 CAP PO DAILY for anti- depressent, #90 CAP 1 Refill 05/16/18 Atorvastatin Calcium (ATORVASTATIN CALCIUM) 20 Mg Tablet, 20 MG PO HS for FOR CHOLESTEROL, #30 TAB 0 Refills 10/28/16 Aspirin (ASPIR 81) 81 Mg Tablet., 1 TAB PO DAILY, #30 TAB 5 Refills 10/28/16 VENKAT ALEJANDRO MD Jun 15, 2021 12:46
--- NOTE | 2021-06-15 12:50 | PDOC3 ---
Discharge Summary Visit Information Date of Admission: Jun 12, 2021 Date of Discharge: Jun 15, 2021 Admitting Diagnosis: Chest pain Final Diagnosis Acute chf, acute COPD Brief Hospital Course Allergies Allergies Coded Allergies Type Severity Reaction Last Updated Verified No Known Drug Allergies 03/23/21 No Vital Signs Vital Signs Date Time Temp Pulse Resp B/P (MAP) Pulse Ox O2 Delivery O2 Flow Rate FiO2 06/15/21 11:45 97 Nasal Cannula 2.0 06/15/21 08:47 54 134/71 06/15/21 07:00 97.7 20 97.7 Lab Results Laboratory Tests Test 06/13/21 16:27 06/13/21 20:16 06/14/21 07:28 06/14/21 12:11 Glucose (Fingerstick) 86 mg/dL (70-99) 163 mg/dL (70-99) 145 mg/dL (70-99) 87 mg/dL (70-99) Test 06/14/21 16:48 06/14/21 20:34 06/15/21 07:08 06/15/21 11:31 Glucose (Fingerstick) 108 mg/dL (70-99) 136 mg/dL (70-99) 123 mg/dL (70-99) 84 mg/dL (70-99) Laboratory Tests Test 06/14/21 16:48 06/14/21 20:34 06/15/21 07:08 06/15/21 11:31 Glucose (Fingerstick) 108 mg/dL (70-99) 136 mg/dL (70-99) 123 mg/dL (70-99) 84 mg/dL (70-99) Brief Hospital Course Ms Laguna is a 64yo F w/ PMHx HTN, SSS, HLD, obesity, chronic pain syndrome, chronic systolic CHF, cor pulmonale with hypoxia on 3L NCO2 well known to hospitalist service, managed to trim her admission frequency considerably during the peaks of COVID pandemic, presented to the ER for acutely worsening shortness of breath. The ER did not mention pain much, but it was her primary issue that I maintain her home percocet dose, Q4, not Q6. She has a history of COPD as well as CHF and has been ruled out for ACS many times. She has a slight cough, not productive, she feels congested, and has pain, chest pain to right neck, 09/30 She did not describe the pressure component that she discussed with the ER. She has new orthopnea and could not sleep well last night due to shortness of breath, She has worsening swelling in the lower extremities and her abdomen. Given IV Lasix. 06/13: Planing of bilateral ankle swelling and pain asking for Voltaren. Lidoderm helped her back pain. Chest discomfort improved shortness of breath minimally improved she is feeling very weak and unsteady awaiting therapy . 06/14: Chest pain improved. Still very dyspneic on exertion with some wheezes a nd unable to get a complete breath today will order Pulmicort nebulizers. 06/15: Breathing improved with aggressive nebulizers. Still on her home O2. No chest pain today. Discussed options of home health and she is not currently interested. Problem list: Shortness of breath - diuresing for CHF exacerbation, also with some wheezing and MCCLOUD likely mild COPD as well Acute on chronic systolic CHF, lasix IV, cont, may transition to home bumex Obese, BMI 40 Weakness and debility Opioid tolerance of meds for chronic pain disorder Chest pain - likely demand from opioid hyperalgesia vs referred right shoulder or GI pain. No telemetry abnormalities and negative trend troponins Shortness of breath - likely CHF exacerbation Accelerated Hypertension - will get back on home medication. 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 No further cardiac workup is indicated Chronic hypoxia - cor pulmonale Greater than 30 minutes spent on d/c home with home health Discharge Information Condition at Discharge: Improved Follow Up: Weeks (1) Disposition/Orders: D/C to Home w/ HH Scheduled Albuterol Sulfate (Ventolin Hfa Inhaler) 18 Gm Hfa.aer.ad, 2 PUFF INH [id number] for FOR ASTHMA, Ref 0 (Reported) Entered as Reported by: JOVANNY MORALES on 01/08/202203 Last Action: Converted on 06/12/212127 by LÓPEZ BARRIOS Amlodipine Besylate (Amlodipine Besylate) 5 Mg Tablet, 5 MG PO DAILY for HTN, (R eported) Entered as Reported by: MAIDA DUDLEY, RN on 12/28/20 1736 Last Action: Continued on 06/12/212127 by LÓPEZ BARRIOS Aspirin (Aspir 81) 81 Mg Tablet.dr, 1 TAB PO DAILY, #30 Ref 5 (Reported) Entered as Reported by: FIFI WALSH on 10/28/16 1058 Last Action: Continued on 06/12/212127 by LÓPEZ BARRIOS Atorvastatin Calcium (Atorvastatin Calcium) 20 Mg Tablet, 20 MG PO HS for FOR CHOLESTEROL, #30 Ref 0 (Reported) Entered as Reported by: FIFI WALSH on 10/28/16 1108 Last Action: Continued on 06/12/212127 by LÓPEZ BARRIOS Bumetanide (Bumetanide) 2 Mg Tablet, 2 MG PO DAILY for diuretic, (Reported) Entered as Reported by: Mikel Guadarrama on 03/24/21 0231 Last Action: Converted on 06/12/212127 by LÓPEZ BARRIOS Calcium Carbonate/Vitamin D3 (Calcium 500 + Vit D 200 Caplet) 1 Each Tablet, 1 EACH PO DAILY for supplement, (Reported) Entered as Reported by: KENNEY YANG on 05/16/182 Last Action: Continued on 06/12/212127 by LÓPEZ BARRIOS Capsaicin (Capsaicin) 42.5 Gm Cream..g., 1 MYLA TP TID for neuropathy, Ref 0 (Reported) Entered as Reported by: ARUN WOLFE on 04/25/21 0210 Last Action: Reviewed on 06/12/212124 by AFSHAN LUGO Carvedilol (Carvedilol) 25 Mg Tablet, 1 TAB PO BID for heart, (Reported) Entered as Reported by: JHON RANKIN on 04/24/21 0247 Last Action: Converted on 06/12/212127 by LÓPEZ BARRIOS Clopidogrel Bisulfate (Clopidogrel) 75 Mg Tablet, 75 MG PO DAILY for TO PREVENT BLOOD CLOTS, #30 Ref 0 (Reported) Entered as Reported by: Laureano Nazario RN on 10/10/19 0703 Last Action: Continued on 06/12/212127 by LÓPEZ BARRIOS Empagliflozin (Jardiance) 10 Mg Tablet, 1 TAB PO DAILY for diabetes, (Reported) Entered as Reported by: Mikel Guadarrama on 03/24/21546 Last Action: Continued on 06/12/212127 by LÓPEZ BARRIOS Fluoxetine Hcl (Fluoxetine Hcl) 20 Mg Capsule, 1 CAP PO DAILY for anti- depressent, #90 Ref 1 (Reported) Entered as Reported by: KENNEY YANG on 05/16/182321 Last Action: Continued on 06/12/212127 by LÓPEZ BARRIOS Hydralazine Hcl (Hydralazine Hcl) 50 Mg Tablet, 1 TAB PO TID for blood pressure, (Reported) Entered as Reported by: Mikel Guadarrama on 03/24/21546 Last Action: Continued on 06/12/212127 by LÓPEZ BARRIOS Insulin Glargine,Hum.rec.anlog (Lantus Solostar) 100 Unit/1 Ml Insuln.pen, 8 UNIT SQ QHS for diabetes, (Reported) Entered as Reported by: Mikel Guadarrama on 03/24/21546 Last Action: Converted on 06/12/212127 by LÓPEZ BARRIOS Insulin Lispro (Humalog) 100 Unit/1 Ml Vial, 8 UNIT SQ TIDAC for DM, (Reported) Entered as Reported by: MAIDA DUDLEY RN on 12/28/20 1736 Last Action: Continued on 06/12/212127 by LÓPEZ BARRIOS Isosorbide Mononitrate (Isosorbide Mononitrate Er) 60 Mg Tab.er.24h, 1 TAB PO DAILY for blood pressure, (Reported) Entered as Reported by: Mikel Guadarrama on 03/24/21 0232 Last Action: Converted on 06/12/212127 by LÓPEZ BARRIOS Losartan Potassium (Losartan Potassium) 100 Mg Tablet, 100 MG PO DAILY for HYPERTENSION, (Reported) Entered as Reported by: Laureano Nazario RN on 10/10/19 0703 Last Action: Converted on 06/12/212127 by LÓPEZ BARRIOS Pantoprazole Sodium (Protonix ) 40 Mg Tablet.dr, 40 MG PO DAILYAC for GERD for 60 Days, #60 Prescribed by: CATHIE KNIGHT on 01/29/19 0841 Last Action: Continued on 06/12/212127 by LÓPEZ BARRIOS Potassium Chloride (Potassium Chloride ) 20 Meq Tablet.er, 20 MEQ PO BIDWMEALS for SUPPLEMENT, (Reported) Entered as Reported by: JOVANNY MORALES on 01/08/202203 Last Action: Continued on 06/12/212127 by LÓPEZ BARRIOS Spironolactone (Spironolactone) 25 Mg Tablet, 1 TAB PO DAILY for diuretic, (Reported) Entered as Reported by: JHON RANKIN on 04/24/21246 Last Action: Continued on 06/12/212127 by LÓPEZ BARRIOS Scheduled PRN Oxycodone/Apap 10-325 (Percocet 10-325 Mg Tablet ) 1 Each Tablet, 1 TAB PO PRN Q4HRS PRN for PAIN MDD 6 Tablet(s) for 5 Days, #20 Ref 0 Prescribed by: PERICO BUCHANAN on 04/26/21 1205 Last Action: Continued on 06/12/212127 by LÓPEZ BARRIOS Zolpidem Tartrate (Ambien) 10 Mg Tablet, 10 MG PO PRN QHS PRN for sleep, (Reported) Entered as Reported by: Mikel Guadarrama on 03/24/21224 Last Action: Converted on 06/12/212127 by LÓPEZ BARRIOS Justicifation of Admission Dx: Justifications for Admission: Justification of Admission Dx: N/A VENKAT ALEJANDRO MD Jun 15, 2021 12:50
[2021-06-15 17:21] VITALS: BP 126/67
--- NOTE | 2021-06-15 17:36 | NUR ---
PATIENT DISCHARGED IN STABLE CONDITION, ALL PERSONAL BELONGINGS SENT WITH PATIENT. IV AND TELE BOX REMOVED. DISCHARGE INSTRUCTIONS VERBALIZED TO PATIENT AND PRINTED COPY PROVIDED. PATIENT VERBALIZED UNDERSTANDING OF INSTRUCTIONS. VSS. PATIENT FAMILY PROVIDED TRANSPORTATION, DISCHARGED VIA WHEELCHAIR. TO FAMILY
== END 2021-06-15 17:43 | disposition home or self-care (01) | DRG 291 ==
LOC: ER 16:11 → 6 SOUTH 18:00 → OBSVTOIN 06-14 16:34
PROVIDERS: ADMIT Internal Medicine; ATTEND Internal Medicine
DX: I13.0 Hypertensive heart and chronic kidney disease with heart failure and stage 1 through stage 4 chronic kidney disease, or unspecified chronic kidney disease (principal); I50.23 Acute on chronic systolic (congestive) heart failure; J44.1 Chronic obstructive pulmonary disease with (acute) exacerbation; Z68.41 Body mass index [BMI] 40.0-44.9, adult; E11.22 Type 2 diabetes mellitus with diabetic chronic kidney disease; E66.01 Morbid (severe) obesity due to excess calories; E78.00 Pure hypercholesterolemia, unspecified; E78.5 Hyperlipidemia, unspecified; G89.4 Chronic pain syndrome; I25.118 Atherosclerotic heart disease of native coronary artery with other forms of angina pectoris; I27.81 Cor pulmonale (chronic); I49.5 Sick sinus syndrome; Z20.822 Contact with and (suspected) exposure to COVID-19; K21.9 Gastro-esophageal reflux disease without esophagitis; Z96.659 Presence of unspecified artificial knee joint; E11.42 Type 2 diabetes mellitus with diabetic polyneuropathy; M19.90 Unspecified osteoarthritis, unspecified site; R53.81 Other malaise; N18.9 Chronic kidney disease, unspecified; Z82.49 Family history of ischemic heart disease and other diseases of the circulatory system; Z90.49 Acquired absence of other specified parts of digestive tract; Z90.710 Acquired absence of both cervix and uterus; Z95.0 Presence of cardiac pacemaker; Z95.1 Presence of aortocoronary bypass graft
CPT/HCPCS: 36415; 71045; 80053; 82962; 83735; 83880; 84484; 85025; 85379; 85610; 85730; 87428; 93005; 94640; 94760; 96374; G0238; G0378; G0379; J1815; J2930; 99285-25; J7626